=== PATIENT | female | born 1960 | race Caucasian/White ===

== ENCOUNTER → 2017-09-18 09:04 | Outpatient (CLI) | payer OTHER, SELFPAY ==
[2017-09-18] VITALS (8 sets, daily range): BP systolic 135–150; BP diastolic 48–104; PULSE 54–83; RESP 16–18; TEMP 35.9–37.1; O2SAT 94–100
[2017-09-18 09:52] LABS: Immature Platelet Fraction 4.2 % (1.0-7.9); Reticulocyte Count 4.89 % (0.5-1.5)
[2017-09-18 10:16] LABS: Ferritin 203 ng/mL (8-252); Iron 33 ug/dL (50-170); Iron Binding Capacity,Total 283 ug/dL (250-450); PERCENT IRON SATURATION 11.7 % (15.0-55.0)
== END ==
PROVIDERS: Internal Medicine Hematology & Oncology; Family Provider Internal Medicine; PCP Internal Medicine; Visit Provider Internal Medicine
DX: D50.0 Iron deficiency anemia secondary to blood loss (chronic) (principal); K90.9 Intestinal malabsorption, unspecified
CPT/HCPCS: 36415; 36430; 82728; 83540; 83550; 85045; 86850; 86900; 86920; 86922; J7040; P9016; A4216

== ENCOUNTER 2017-11-13 14:01 | Observation (INO) | payer MEDICAID, SELFPAY ==
[2017-11-13] VITALS (9 sets, daily range): BP systolic 124–157; BP diastolic 56–104; PULSE 70–84; RESP 15–18; TEMP 35.8–37.1; O2SAT 95–99; BMI 38.0; BMI 38.1; BMI 37.0
--- NOTE | 2017-11-13 16:02 | ED.VISSUMM ---
- ER Visit Summary Date of Service: 11/13/17 Chief Complaint: Bright red blood per rectum and black stool. History of Present Illness: The patient is a 57 F history of prior GI bleeds. She states she has had both upper and lower endoscopy and the camera procedure none of which is never found a source. She has a history of chronic iron deficiency anemia. And is also on Plavix due to carotid stenosis. Patient states today around 1231 she noticed bright red blood per rectum and black stool. Also mild epigastric abdominal discomfort. She has nausea but no vomiting. No hematemesis. She has been transfused 2 units within the last 2-3 months. Physical Examination: Well appearing middle-aged female. Vital signs are stable afebrile. She does not look septic or toxic. Currently no acute distress. HEENT exam is unremarkable. Neck nontender. Lungs clear to auscultation bilaterally. Heart regular rhythm no murmur. Abdomen is soft, nontender, nondistended normal bowel sounds no peritoneal signs. She complains of epigastric tenderness is not really reproducibly tender. Both the right upper right lower quadrant unremarkable. There is no pulsatile mass. Moving all 4 extremities. Back exam nontender. Rectal exam with a nurse present in the room no external hemorrhoids. Loose brown stool. No bright red blood. No internal masses. No melena currently. Neurologically she is awake and alert without any focal motor deficits. Skin unremarkable. No bruising or petechiae or purpura. Test Results: CBC shows a hemoglobin 7.5. Which is lower than her baseline. Her normal hemoglobins running between 9 and 13. Electrolytes unremarkable normal anion gap and BUN and creatinine. Emergency Department Course and Treatment: Patient will undergo screening labs and type and screen. Treatment Plan: Patient will be typed and crossed for 2 units. I will order a transfusion of 1 unit she may or may not need to second. I spoke to the hospitalist who will admit the patient for evaluation, workup and transfusion. Disposition: Admission Impression: Acute GI bleed of uncertain etiology Acute on chronic anemia Blood transfusion History of anticoagulation with Plavix This note was generated with [employer] dictation software. It may contain incorrect words, spelling, and punctuation that were not noted in review of the chart prior to signing ED Disposition - Plan for ED Patient: Chief Complaint: Abd Pain Referrals: Selene Painter MD [Primary Care Provider] -
[2017-11-13 16:06] LABS: Anion Gap 8 (5-15); BUN 8 mg/dL (7-18); BUN/Creat Ratio 10.2 RATIO (10-20); Calcium,Total 8.3 mg/dL (8.5-10.1); Chloride 106 mmol/L (98-107); Creatinine, Serum 0.79 mg/dL (0.55-1.02); EST Glomerular Filtration Rate 80 mL/min (>60); Est Glom Filt Rate - Afr Amer 97 mL/min (>60); Estimated Creatinine Clearance 64.21 ml/min; Glucose 79 mg/dL (74-106); Potassium 4.1 mmol/L (3.5-5.1); Sodium Level 139 mmol/L (136-145)
[2017-11-13 16:17] LABS: Absolute Lymphocyte Count 1.12 X10^3/ul (0.83-4.51); Absolute Neutrophil Count 4.6 X10^3/uL (2.0-7.7); Basophil# 0.07 X10^3/uL; Basophil% 1.1 % (0-1); Eosinophil# 0.18 X10^3/uL; Eosinophils% 2.8 % (0-5); Hematocrit 25.6 % (37-47); Hemoglobin 7.5 g/dl (12.0-15.0); Lymphocyte # 1.12 X10^3/ul (4.0); Lymphocyte % 17.3 % (19-41); Mean Corp Hgb Conc 29.3 g/gl (32-36); Mean Corpuscular Hgb 25.5 pg (27.0-32.0); Mean Corpuscular Volume 87.1 fL (81-99); Mean Platelet Vol. 10.6 fl (6.2-12.0); Monocyte# 0.51 X10^3/uL; Monocyte% 7.9 % (0-10); Neutrophil % 70.7 % (47-70); Platelet Count 408 K/mm3 (150-450); Pregnancy, Serum, hCG Quali. NEGATIVE Negative (0-9 Nonpreg); RBC Distribution Width CV 16.1 % (11.6-14.6); RBC Distribution Width SD 49.3 fl (35.1-43.9); Red Blood Count 2.94 M/mm3 (4.2-5.4); White Blood Count 6.5 K/mm3 (4.4-11.0)
[2017-11-13 16:18] LABS: POSITIVE COUNT NO; POSITIVE DIFFERENTIAL NO; POSITIVE MORPHOLOGY NO
--- NOTE | 2017-11-13 17:22 | NURSING ---
MED SURG [facility]
--- NOTE | 2017-11-13 20:37 | PCM.HP.STD ---
Problem List (1) Anemia Status: Chronic (2) Rheumatoid arthritis Status: Chronic (3) Fibromyalgia Status: Chronic (4) Carotid arterial disease Status: Chronic History of Present Illness Date of Admission: 11/13/17 Chief Complaint: Bright red blood per rectum The patient is a 57 year old F past medical history of left carotid stenosis, fibromyalgia rheumatoid arthritis and anemia who presented to the emergency room due to bright red blood per rectum. The patient does take Plavix for her carotid stenosis. Patient reported that she had EGD and colonoscopy about 3 months ago and it was unrevealing. Globin was 7.5 and she was ordered to receive 2 units of packed RBCs. Denies any chest pain, shortness of breath dizziness or rapid heartbeat or palpitations. Past Medical History Past Medical History (Chronic Problems): Chronic Problems (Last Reviewed 09/10/17 @ 13:01 by Stephanie Zuñiga) Anemia (Chronic) Rheumatoid arthritis (Chronic) Fibromyalgia (Chronic) Carotid arterial disease (Chronic) Allergies doxycycline calcium [From Vibramycin] Allergy (Verified 11/13/17 16:07) Anaphylaxis doxycycline hyclate [From Vibramycin] Allergy (Verified 11/13/17 16:07) Anaphylaxis doxycycline monohydrate [From Vibramycin] Allergy (Verified 11/13/17 16:07) Anaphylaxis NSAIDS (Non-Steroidal Anti-Inflamma Allergy (Verified 11/13/17 16:07) Anaphylaxis hydrocodone bitartrate [From Vicodin] Adverse Reaction (Verified 11/13/17 16:27) STOMACH UPSET hydromorphone HCl [From Dilaudid] Adverse Reaction (Verified 11/13/17 16:27) Vomiting morphine Adverse Reaction (Verified 11/13/17 16:27) Vomiting Home Medications: Ambulatory Orders Medication Instructions Recorded Albuterol Inhaler [Ventolin Hfa] 2 puff INHALATION Q4H PRN PRN 03/13/15 Clopidogrel Bisulfate [Plavix] 75 mg PO DAILY 03/13/15 Gabapentin [Neurontin] 600 mg PO TID 03/13/15 Simvastatin [Zocor] 20 mg PO QHS 03/13/15 Fluoxetine [Prozac] 60 mg PO QHS 16 acetaminophen 325 mg tablet 500 mg PO Q6H PRN 07/12/17 bupropion HCl SR 100 mg tablet,12 150 mg PO BID 07/12/17 hr sustained-release mometasone-formoterol HFA 100 2 puff INHALATION BID 07/12/17 mcg-5 mcg/actuation aerosol inhaler prednisone 5 mg tablet 15 mg PO DAILY 07/12/17 Carboxymethylcellulose Sodium 1 applicatio OP QHS 11/13/17 [Refresh Liquigel] Ergocalciferol [Vitamin D] 50,000 unit PO MORALEZ 11/13/17 Omeprazole 40 mg PO DAILY 11/13/17 Ondansetron [Zofran Odt] 4 mg PO Q6H PRN PRN 11/13/17 Peg 400/Hypromellose/Glycerin 1 drop OP 4X/DAY 11/13/17 [Artificial Tears Drops] Ranitidine [Zantac] 150 mg PO BID 11/13/17 Ubidecarenone [Coenzyme Q-10] 30 mg PO BID 11/13/17 buPROPion XL [Wellbutrin Xl] 150 mg PO QHS 11/13/17 Surgical History: - - left shoulder, 2 c/s, colonoscopy and egd 5 years ago at [facility],left tkr Smoking Status: Former smoker - *Family History Maternal History Items: - - mother with most of her large intestine removed - not crohns or ulceritive colitis but a different typ of IBD Paternal History Items: - - father with mi Review of Systems Comment: All Systems were reviewed with pertinent positives mentioned in the HPI above. VTE Information - Inpt Only VTE Present on Admission: No VTE Mechan Device Prophylaxis: SCD's VTE Pharm Prophylaxis ordered?: No - Physical Exam General: Alert, Oriented x3 HEENT: Atraumatic Oral: Moist Mucosa Neck: Supple, No JVD Lungs: Clear to auscultation Cardiovascular: Regular rate, Normal S1, Normal S2 Abdomen: Bowel Sounds Present, Soft, Non Tender Vital Signs Temp Pulse Resp BP Pulse Ox 98.7 F 79 18 129/67 H 96 11/13/17 19:58 11/13/17 20:15 11/13/17 19:58 11/13/17 19:58 11/13/17 19:58 Oxygen Delivery Method Room Air Weight: 96.388 kg Body Mass Index (BMI) 37.0 Intake and Output for Last 24 Hours 11/11/17 11/12/17 11/13/17 23:59 23:59 23:59 Intake Total 0 / 0 Balance 0 / 0 Assessment/Plan 1. Acute lower gastrointestinal bleed; likely had EGD and colonoscopy and that did not reveal any source of bleeding. Hold off on her Plavix for now. I do not believe she needs repeat EGD or colonoscopy at this time. 2. Acute blood loss anemia; will transfuse with packed RBCs and repeat H&H. 3. Left carotid stenosis for which she takes Plavix; we are holding Plavix for now. 4. Depression/fibromyalgia; stable. 5. DVT Prophylaxis with SCDs. Code Visit OBSV E&M: 84451 Initial observation care L3
[2017-11-13 22:32] LABS: Hematocrit 26.7 % (37-47); Hemoglobin 8.2 g/dl (12.0-15.0)
[2017-11-13] MEDS: FLUoxetine 20 MG Capsule 60 MG PO (23:08)
[2017-11-13] MEDS: Atorvastatin Calcium 10 MG Tablet PO (23:08)
[2017-11-13] MEDS: buPROPion (XL) 150 MG TABLET.XL PO (23:09)
[2017-11-13] MEDS: Gabapentin 600 MG Tablet PO (23:10)
[2017-11-14] VITALS (15 sets, daily range): BP systolic 129–155; BP diastolic 44–70; PULSE 73–96; RESP 16–18; TEMP 36.6–37.1; O2SAT 96–98
[2017-11-14 06:50] LABS: Hemoglobin 8.2 g/dl (12.0-15.0); Red Blood Count 3.14 M/mm3 (4.2-5.4); White Blood Count 5.5 K/mm3 (4.4-11.0)
[2017-11-14 06:51] LABS: Absolute Lymphocyte Count 0.95 X10^3/ul (0.83-4.51); Absolute Neutrophil Count 3.8 X10^3/uL (2.0-7.7); Basophil# 0.05 X10^3/uL; Basophil% 0.9 % (0-1); Eosinophils% 3.6 % (0-5); Hematocrit 26.8 % (37-47); Lymphocyte # 0.95 X10^3/ul (4.0); Lymphocyte % 17.3 % (19-41); Mean Corp Hgb Conc 30.6 g/gl (32-36); Mean Corpuscular Hgb 26.1 pg (27.0-32.0); Mean Corpuscular Volume 85.4 fL (81-99); Mean Platelet Vol. 9.9 fl (6.2-12.0); Monocyte# 0.52 X10^3/uL; Monocyte% 9.5 % (0-10); Neutrophil # 3.76 X10^3/uL (2.7-7.7); Neutrophil % 68.7 % (47-70); Platelet Count 340 K/mm3 (150-450); RBC Distribution Width CV 15.8 % (11.6-14.6); RBC Distribution Width SD 49.2 fl (35.1-43.9)
[2017-11-14 06:54] LABS: POSITIVE COUNT NO; POSITIVE DIFFERENTIAL NO; POSITIVE MORPHOLOGY NO
[2017-11-14] MEDS: Albuterol 2.5 MG/3 ML VIAL.NEB. INHALATION ×3 (07:01→19:14)
[2017-11-14] MEDS: Gabapentin 600 MG Tablet PO ×3 (07:36→21:43)
[2017-11-14 09:48] LABS: International Normalized Ratio 1.1; Prothrombin Time (Protime)PT. 14.5 SECONDS (11.7-14.9)
[2017-11-14 09:49] LABS: Partial Thromboplast Time 35.4 Seconds (24.1-36.2)
[2017-11-14] MEDS: 0.9% NaCl Peripheral Flush Adult/Peds IV ×2 (09:52→21:44)
[2017-11-14] MEDS: predniSONE 5 MG Tablet 15 MG PO (09:52)
--- NOTE | 2017-11-14 10:08 | PN_ITS ---
Subjective: Chief complaint: Follow-up after admission for lower GI bleed, acute blood loss anemia. Patient seen and examined. No acute events overnight. She is stated that she has no more rectal bleeding. She has no more dizziness or lightheadedness. Denied abdominal pain, nausea vomiting. Denied hematemesis, hemoptysis or hematuria. Denied chest pain or shortness of breath. Vital signs are stable. - Physical Exam General: Alert, Oriented x3, Cooperative, No apparent distress HEENT: Atraumatic, PERRLA, EOMI Oral: Moist Mucosa, No Gingival or Mucosal Lesions/ Ulcerations Neck: Supple, No JVD, Negative Carotid Bruits, Trachea Midline, Thyroid Normal Size and Texture Lungs: Clear to auscultation, Normal air movement, No rhonchi, No wheeze, No rales Cardiovascular: Regular rate, Regular Rhythm, Normal S1, Normal S2, No murmurs Abdomen: Bowel Sounds Present, Soft, Non Tender, Non-Distended, No Hepato- splenomegaly Extremities: No clubbing, No cyanosis, No edema Skin: No rashes, No breakdown Lymphatic: No Cervical, Supraclavicular, or Inguinal Adenopathy Neurological: Cranial nerves II-XII grossly intact, Motor Exam 5/5 strength throughout Psych/Mental Status: Normal Affect, Appropriate, Alert and oriented to time, place, person, mood and affect Vital Signs Temp Pulse Resp BP Pulse Ox 98.3 F 77 16 145/44 H 98 11/14/17 09:47 11/14/17 09:47 11/14/17 09:47 11/14/17 09:47 11/14/17 09:47 Oxygen Delivery Method Room Air Weight: 212 lb 8 oz Body Mass Index (BMI) 37.0 Intake and Output for Last 24 Hours 11/12/17 11/13/17 11/14/17 23:59 23:59 23:59 Intake Total 633 / 633 300 / 300 Balance 633 / 633 300 / 300 Laboratory Tests Past 24 Hrs 11/13/17 11/14/17 11/14/17 22:19 06:08 09:25 WBC 5.5 RBC 3.14 L Hgb 8.2 L 8.2 L Hct 26.7 L 26.8 L MCV 85.4 MCH 26.1 L MCHC 30.6 L RDW 15.8 H RDW Differential 49.2 H Plt Count 340 MPV 9.9 Immature Gran % (Auto) 0.000 Neut % (Auto) 68.7 Lymph % (Auto) 17.3 L [place] % (Auto) 9.5 Eos % (Auto) 3.6 Baso % (Auto) 0.9 Absolute Neuts (auto) 3.8 Absolute Lymphs (auto) 0.95 Total Counted Not Reportable PT 14.5 INR 1.1 APTT 35.4 Medical Necessity - Tobacco Use Smoking Status: Former smoker Assessment/Plan This is a 58 years old female patient admitted because of rectal bleeding, found to have acute symptomatic blood loss anemia requiring blood transfusion. #1 lower GI bleed: This is likely diverticular bleeding. According to the patient, she had upper endoscopy and colonoscopy 3 months ago that revealed no evidence of source of infection. Also, she had capsule endoscopy and also was unremarkable., She has no more rectal bleeding. Her vital signs are stable. Her hemoglobin is 8.2 g/dL. Plan as below. #2 acute on chronic symptomatic blood loss anemia: Secondary to above. Admission hemoglobin was 7.5 g/dL. She received 1 unit of packed RBCs, today's hemoglobin is 8.2 g/dL. She has normal symptoms, no dizziness or lightheadedness. Her platelet count is normal. Pro time, INR and PTT are normal. Patient has a history of chronic iron deficiency anemia and she has been receiving IV iron therapy as outpatient. Plan: Transfuse another unit of packed RBCs, IV iron sucrose 100 mg ?1, repeat H&H tomorrow morning, anticipate discharge home tomorrow. #3 rheumatoid arthritis: Resume prednisone, start OxyIR as needed for pain. #4 COPD: Clinically stable, maintaining her pulse ox on room air. Continue albuterol every 6 hours and as needed. #5 carotid artery disease: Patient has been on Plavix. According to her, she has 80% stenosis on the left carotid artery. Plan to resume Plavix upon discharge. #6 hyperlipidemia: Continue statins. #7 depression: Continue Wellbutrin and Prozac. #8 DVT prophylaxis: SCDs. This note was generated with [employer] software. It may contain incorrect words, spelling, and punctuation that were not noted in checking the note before signing. Code Visit Inpatient E&M: 31809 Subs Hosp L2
[2017-11-14] MEDS: oxyCODONE 5 MG Tablet PO ×2 (11:34→19:50)
--- NOTE | 2017-11-14 13:05 | CASEMGMT ---
Social Work Assessment SW met with pt to complete initial assessment and to discuss discharge planning. SW introduced self and role at [facility]. Pt is alert and orientated x4. Pt states that she lives with a friend in a 2 story home. Pt states that she primarily stays on the first floor. Pt states that before coming into the hospital she was previously independent but states that her friend and her daughter help out when needed. Pt states that her PCP is Selene Painter and her preferred pharmacy is [facility] in [place]. Pt denied DME. Pt states that her plan is to return home at discharge. Pt denied any additional needs or concerns. Substance Abuse Hx: Pt denied. Pt states she used to smoke cigarettes but doesn't anymore. Mental Health Hx: Pt states that she struggles with anxiety and depression. Pt denied receiving counseling services and denied the need for current counseling services. Pt states that she currently takes Wellbutrin and Prozac and these medications are prescribed through her PCP. Plan: Return home with support from friends. Kamilah Fraga PUBLIC WORKS DIRECTOR, FOOD SERVICE COUNTER CLERK
[2017-11-14] MEDS: Acetaminophen 500 MG Tablet PO (17:04)
[2017-11-14] MEDS: Atorvastatin Calcium 10 MG Tablet PO (21:43)
[2017-11-14] MEDS: buPROPion (XL) 150 MG TABLET.XL PO (21:43)
[2017-11-14] MEDS: FLUoxetine 20 MG Capsule 60 MG PO (21:43)
[2017-11-14 21:58] LABS: Hematocrit 28.1 % (37-47); Hemoglobin 8.7 g/dl (12.0-15.0)
[2017-11-15 00:04] VITALS: PULSE 80
[2017-11-15 01:54] VITALS: BP 155/71; PULSE 81; RESP 16; TEMP 36.9; O2SAT 97
[2017-11-15 04:02] VITALS: PULSE 73
[2017-11-15] MEDS: Gabapentin 600 MG Tablet PO (06:07)
[2017-11-15 07:28] VITALS: PULSE 74; RESP 16
[2017-11-15] MEDS: Albuterol 2.5 MG/3 ML VIAL.NEB. INHALATION (07:28)
[2017-11-15 07:46] VITALS: PULSE 79
--- NOTE | 2017-11-15 07:51 | PCM.DC ---
You will use the following diet at home:: Regular Your food should be the consistency of: Regular Discharge Activity: Return to Normal Activity Weight Bearing Status: Weight bearing as tolerated Call your doctor if you observe: Fever of 101 or Higher, Shortness of breath, Dizziness, Fainting spells, Chest pain, Increased palpitations (irregular heartbeat), Uncontrolled pain Allergies/Adverse Reactions: Allergies doxycycline calcium [From Vibramycin] Allergy (Verified 11/13/17 16:07) Anaphylaxis doxycycline hyclate [From Vibramycin] Allergy (Verified 11/13/17 16:07) Anaphylaxis doxycycline monohydrate [From Vibramycin] Allergy (Verified 11/13/17 16:07) Anaphylaxis NSAIDS (Non-Steroidal Anti-Inflamma Allergy (Verified 11/13/17 16:07) Anaphylaxis hydrocodone bitartrate [From Vicodin] Adverse Reaction (Verified 11/13/17 16:27) STOMACH UPSET hydromorphone HCl [From Dilaudid] Adverse Reaction (Verified 11/13/17 16:27) Vomiting morphine Adverse Reaction (Verified 11/13/17 16:27) Vomiting Medications to take at Discharge Albuterol Inhaler [Ventolin Hfa] 2 puff INHALATION Q4H PRN PRN 03/13/15 Clopidogrel Bisulfate [Plavix] 75 mg PO DAILY 03/13/15 Gabapentin [Neurontin] 600 mg PO TID 03/13/15 Simvastatin [Zocor] 20 mg PO QHS 03/13/15 Fluoxetine [Prozac] 60 mg PO QHS 16 acetaminophen 325 mg tablet 500 mg PO Q6H PRN 07/12/17 bupropion HCl SR 100 mg tablet,12 hr sustained-release 150 mg PO BID 07/12/17 mometasone-formoterol HFA 100 mcg-5 mcg/actuation aerosol inhaler 2 puff INHALATION BID 07/12/17 prednisone 5 mg tablet 15 mg PO DAILY 07/12/17 Carboxymethylcellulose Sodium [Refresh Liquigel] 1 applicatio OP QHS 11/13/17 Ergocalciferol [Vitamin D] 50,000 unit PO MORALEZ 11/13/17 Omeprazole 40 mg PO DAILY 11/13/17 Ondansetron [Zofran Odt] 4 mg PO Q6H PRN PRN 11/13/17 Peg 400/Hypromellose/Glycerin [Artificial Tears Drops] 1 drop OP 4X/DAY 11/13/17 Ranitidine [Zantac] 150 mg PO BID 11/13/17 Ubidecarenone [Coenzyme Q-10] 30 mg PO BID 11/13/17 buPROPion XL [Wellbutrin Xl] 150 mg PO QHS 11/13/17 Prednisone 15 mg PO 11/14/17 Ferrous Sulfate 325 mg PO BIDCM #90 tab 11/15/17 The following prescriptions were given: Ferrous Sulfate 325 mg PO BIDCM #90 tab Primary Care Physician: Selene Painter MD [Primary Care Provider] - Please follow up with your Primary Care Physician in: 1 week.
[2017-11-15 08:00] VITALS: BP 150/75; PULSE 81; RESP 16; TEMP 37; O2SAT 96
[2017-11-15] MEDS: predniSONE 5 MG Tablet 15 MG PO (08:13)
--- NOTE | 2017-11-15 12:33 | PCM.DC.SUM ---
Discharge Date and Diagnosis Date of Admission: 11/13/17 - Primary Discharge Diagnosis #1 lower GI bleed, probably due to diverticular bleeding. #2 acute on chronic symptomatic blood loss anemia. - Secondary Discharge Diagnosis Chronic Problems (Last Reviewed 09/10/17 @ 13:01 by Stephanie Zuñiga) Anemia (Chronic) Rheumatoid arthritis (Chronic) Fibromyalgia (Chronic) Carotid arterial disease (Chronic) Hospital Course and Treatment Operations: None Procedures: Blood transfusion Summary of Care Provided: Patient seen and examined on the day of discharge and appeared to be stable to be discharged home. She denies any more symptoms. Denies any more dizziness or lightheadedness. She has no more rectal bleeding. Denied abdominal pain, nausea vomiting. Vital signs are stable. She has been ambulating without any symptoms. - Physical Exam General: Alert, Oriented x3, Cooperative, No apparent distress. HEENT: Atraumatic, PERRLA, EOMI. Neck: Supple, No JVD, Negative Carotid Bruits, Trachea Midline, Thyroid Normal. Lungs: Clear to auscultation, Normal air movement, No rhonchi, No wheeze, No rales. Cardiovascular: Regular rate, Regular Rhythm, Normal S1, Normal S2, PMI Normal. Abdomen: Bowel Sounds Present, Soft, Non Tender, Non-Distended, No Hepato-splenomegaly. Extremities: No clubbing, No cyanosis, No edema Skin: No rashes, No breakdown Neurological: Neuro grossly intact Vital Signs are stable. Hospital course: The patient is a 57 year old F admitted because of rectal bleeding and she was found to have acute on chronic symptomatic blood loss anemia requiring blood transfusion. Patient had a history of this lower GI bleed in the past which is attributed to diverticular bleeding. She had upper endoscopy and colonoscopy 3 months ago that revealed no evidence of active bleeding. Also, she mentioned that she had capsule endoscopy and also that was unremarkable. She was found to have hemoglobin of 7.5 g/dL and she was symptomatic with dizziness and lightheadedness. She received total of 2 units of packed RBCs and her hemoglobin went up to 8.7 g/dL upon discharge. Patient symptoms improved and she had no more dizziness or lightheadedness. Her vital signs were stable. She has a history of left internal carotid artery stenosis of 80% and she has been on Plavix. Her pro time and INR as well as PTT were normal. Her platelet count was normal. Plavix was held during the admission but resumed upon discharge. Because of her risk of stroke, I started her back on Plavix upon discharge. Patient discharged home in a stable medical condition, discharged on iron supplement, continued on her home medication without any changes including Plavix, order given to repeat CBC in 1 week, follow-up with PCP in 1 week. Discharge Activity: Return to Normal Activity Weight Bearing Status: Weight bearing as tolerated Call your doctor if you observe: Fever of 101 or Higher, Shortness of breath, Dizziness, Fainting spells, Chest pain, Increased palpitations (irregular heartbeat), Uncontrolled pain Home Medications: Medications to take at Discharge Albuterol Inhaler [Ventolin Hfa] 2 puff INHALATION Q4H PRN PRN 03/13/15 Clopidogrel Bisulfate [Plavix] 75 mg PO DAILY 03/13/15 Gabapentin [Neurontin] 600 mg PO TID 03/13/15 Simvastatin [Zocor] 20 mg PO QHS 03/13/15 Fluoxetine [Prozac] 60 mg PO QHS 12/13/15 acetaminophen 325 mg tablet 500 mg PO Q6H PRN 07/12/17 bupropion HCl SR 100 mg tablet,12 hr sustained-release 150 mg PO BID 07/12/17 mometasone-formoterol HFA 100 mcg-5 mcg/actuation aerosol inhaler 2 puff INHALATION BID 07/12/17 prednisone 5 mg tablet 15 mg PO DAILY 07/12/17 Carboxymethylcellulose Sodium [Refresh Liquigel] 1 applicatio OP QHS 11/13/17 Ergocalciferol [Vitamin D] 50,000 unit PO MORALEZ 11/13/17 Omeprazole 40 mg PO DAILY 11/13/17 Ondansetron [Zofran Odt] 4 mg PO Q6H PRN PRN 11/13/17 Peg 400/Hypromellose/Glycerin [Artificial Tears Drops] 1 drop OP 4X/DAY 11/13/17 Ranitidine [Zantac] 150 mg PO BID 11/13/17 Ubidecarenone [Coenzyme Q-10] 30 mg PO BID 11/13/17 buPROPion XL [Wellbutrin Xl] 150 mg PO QHS 11/13/17 Prednisone 15 mg PO 11/14/17 Ferrous Sulfate 325 mg PO BIDCM #90 tab 11/15/17 Following Prescrptions Were Given to Patient: Ferrous Sulfate 325 mg PO BIDCM #90 tab Primary Care Physician: Selene Painter MD [Primary Care Provider] - Please follow up with your Primary Care Physician in: 1 week. Disposition: Home Minutes spent on discharge:: 25 Patient Condition:: Stable Medical Necessity - Tobacco Use Smoking Status: Former smoker Meaningful Use Info Meaningful Use Diagnoses (Choose all that apply): None applicable Code Visit Inpatient E&M: 17269 Disch Hosp
== END 2017-11-15 08:30 | disposition home or self-care (01) ==
LOC: ED 16:04 → MS3 22:39
PROVIDERS: Admitting Provider Internal Medicine; Emergency Provider Emergency Medicine; Family Provider Internal Medicine; PCP Internal Medicine; Visit Provider Hospitalist
DX: K92.2 Gastrointestinal hemorrhage, unspecified (principal); D62 Acute posthemorrhagic anemia; D50.0 Iron deficiency anemia secondary to blood loss (chronic); M79.7 Fibromyalgia; M06.9 Rheumatoid arthritis, unspecified; I65.22 Occlusion and stenosis of left carotid artery; Z79.899 Other long term (current) drug therapy; Z79.02 Long term (current) use of antithrombotics/antiplatelets; Z79.52 Long term (current) use of systemic steroids; J44.9 Chronic obstructive pulmonary disease, unspecified; E78.5 Hyperlipidemia, unspecified; F32.9 Major depressive disorder, single episode, unspecified; Z87.891 Personal history of nicotine dependence; K21.9 Gastro-esophageal reflux disease without esophagitis
CPT/HCPCS: 36415; 36430; 80048; 84703; 85014; 85018; 85025; 85610; 85730; 86850; 86900; 86920; 90471; 94640; 96365; 96366; 96367; 99218; 99285; J1756; J7040; J7050; P9016; A4216; G0378

== ENCOUNTER 2018-03-22 12:18 | Emergency (ER) | payer MEDICARE, MEDICAID, SELFPAY ==
[2018-03-22 12:19] VITALS: BP 147/78; PULSE 80; RESP 14; TEMP 36.7; O2SAT 99; BMI 37.2
--- NOTE | 2018-03-22 12:58 | ED.VISSUMM ---
- ER Visit Summary Date of Service: 03/22/18 Chief Complaint: Fall History of Present Illness: The patient is a 57 F who suffered a mechanical fall yesterday on the concrete. Patient states that she lost her balance and fell. She landed on her left side with her left arm tucked up against her ribs. She is complaining of pain to the left ribs into the left knee. She denies striking her head or loss of consciousness. She did take Tylenol earlier this morning. Physical Examination: Vital signs are unremarkable. Patient sitting upright in bed. She is in no acute distress. Head neck examination reveals no external sign of trauma. She has no C-spine tenderness. Heart is regular rate and rhythm. Lung sounds are clear. She does have reproducible left chest wall tenderness. There is no crepitus. Abdomen is soft nontender. Back examination reveals no midline tenderness of the thoracic or lumbar region. Lower extremity examination was mild tenderness of the anterior left knee. She has full range of motion. Strong distal pulses are noted. Neuro exam is normal. Test Results: Left rib series with chest x-ray reveals normal ribs. There is a large hiatal hernia. Left knee x-rays reveal prior prosthesis. No evidence of fracture. Emergency Department Course and Treatment: Patient was given oxycodone here and on repeat evaluation does feel improved. Test results were discussed with patient and family at bedside. She will be given a short course of oxycodone for home. Treatment Plan: [] Disposition: Discharge Impression: 1. Mechanical fall 2. Left rib contusion 3. Left knee contusion This note was generated with [employer] dictation software. It may contain incorrect words, spelling, and punctuation that were not noted in review of the chart prior to signing ED Disposition - Plan for ED Patient: Chief Complaint: Fall Referrals: Selene Painter MD [Primary Care Provider] -
[2018-03-22] MEDS: oxyCODONE 5 MG Tablet 10 MG PO (13:09)
--- NOTE | 2018-03-22 14:48 | ED.DEP ---
ED Disposition - Plan for ED Patient: Disposition: Home or Assisted Living Chief Complaint: Fall Instructions: ED Mechanical Fall, ED Contusion Rib, ED Contusion Lower Ext Prescriptions: Oxycodone HCl/Acetaminophen [Percocet 5/325] 1 tablet PO Q6H PRN PRN 3 Days #12 tablet PRN Reason: Pain Referrals: Selene Painter MD [Primary Care Provider] - 1 Week
[2018-03-22 14:58] VITALS: BP 126/68; PULSE 78; RESP 16; O2SAT 94
== END 2018-03-22 14:59 | disposition home or self-care (01) ==
PROVIDERS: Emergency Provider Emergency Medicine; Family Provider Internal Medicine; PCP Internal Medicine
DX: S20.212A Contusion of left front wall of thorax, initial encounter (principal); S80.02XA Contusion of left knee, initial encounter; W19.XXXA Unspecified fall, initial encounter; Y93.9 Activity, unspecified; Y92.9 Unspecified place or not applicable; Y99.9 Unspecified external cause status; K44.9 Diaphragmatic hernia without obstruction or gangrene; J44.9 Chronic obstructive pulmonary disease, unspecified; M06.9 Rheumatoid arthritis, unspecified; M79.7 Fibromyalgia; D64.9 Anemia, unspecified; Z79.02 Long term (current) use of antithrombotics/antiplatelets; Z79.899 Other long term (current) drug therapy; Z87.891 Personal history of nicotine dependence; Z96.652 Presence of left artificial knee joint
CPT/HCPCS: 71101; 73564; 99283

== ENCOUNTER → 2018-05-03 15:03 | Outpatient (CLI) | payer MEDICARE, MEDICAID, SELFPAY | PROVIDERS: Family Provider Internal Medicine; PCP Internal Medicine; Referring Provider Physician Assistant; Visit Provider Physician Assistant | DX: J02.9 Acute pharyngitis, unspecified (principal) | CPT/HCPCS: 87081 ==

== ENCOUNTER → 2018-05-27 11:48 | Outpatient (CLI) | payer MEDICARE, MEDICAID, SELFPAY | PROVIDERS: Family Provider Internal Medicine; PCP Internal Medicine; Referring Provider Physician Assistant Surgical; Visit Provider Physician Assistant Surgical | DX: J02.9 Acute pharyngitis, unspecified (principal) | CPT/HCPCS: 87081 ==

== ENCOUNTER 2019-10-08 12:35 | Emergency (ER) | payer MEDICARE, SELFPAY ==
[2019-04-09 13:50] VITALS: BMI 37.2
[2019-10-08 12:36] VITALS: BP 152/131; PULSE 79; RESP 18; TEMP 36.4; O2SAT 99; BMI 37.5
--- NOTE | 2019-10-08 12:45 | US_ITS ---
STUDY: ABDOMINAL ULTRASOUND - RIGHT UPPER QUADRANT REASON FOR VISIT: Female, 59 years old RUQ PAIN TECHNIQUE: Ultrasound evaluation of the right upper quadrant was performed with real-time and static mendez-scale imaging. TECHNICAL QUALITY: Limited. Examination limited due to obesity. COMPARISON: None. FINDINGS: Liver: The liver measures 12.9 cm. There is normal echogenicity of the liver. The bile ducts are within normal limits. There is hepatic color flow. The direction of portal flow is hepatopetal. There is no demonstrated mass lesion. Gallbladder: Normal distended gallbladder. The gallbladder wall measures 2.3 mm. There is a negative sonographic Mae''s sign. There is no pericholecystic fluid. There are no gallstones. Common Bile Duct (C.B.D.): The common bile duct measures 3.8 mm. Pancreas: There is nonvisualization of the pancreas due to overlying bowel gas. Right Kidney: Normal size of the right kidney. The right kidney measures 11.2 cm x 4.6 cm x 4.4 cm. Normal renal cortex. The right cortex measures 1.8 cm. There is no demonstrated renal mass or cyst. There is no right hydronephrosis. US/Gallbladder IMPRESSION: Normal right upper quadrant ultrasound examination. Electronically Signed: Juan Antonio Becerra, at 14:32 EDT , Service support ,
--- NOTE | 2019-10-08 12:47 | ED.VIS.GEN ---
History of Present Illness Chief Complaint: Abd Pain Informant: Patient Onset: Days Context: Gradual Onset Timing: Continuous Current Severity: Moderate Maximum Severity: Moderate Narrative: The patient is a 59-year-old female who presents to the emergency department with right upper quadrant abdominal pain, nausea, and vomiting. The patient states that she has a history of hiatal hernia repair. She states that she is to vomit much more significantly, but now she is just been having dry heaves. Over the past few days, she is had more pain in the central epigastric area into her right upper quadrant. She denies fever but does admit to some chills. She is otherwise been in her normal state of health. She has had no other abdominal surgery aside from . She is unsure if any foods make it worse. Prior similar symptoms: No Recent Illness/Hospitalization: No Past Medical History - Allergies and Home Meds Allergies/Adverse Reactions: Allergies doxycycline calcium [From Vibramycin] Allergy (Verified 10/08/19 12:35) Anaphylaxis doxycycline hyclate [From Vibramycin] Allergy (Verified 10/08/19 12:35) Anaphylaxis doxycycline monohydrate [From Vibramycin] Allergy (Verified 10/08/19 12:35) Anaphylaxis NSAIDS (Non-Steroidal Anti-Inflamma Allergy (Verified 10/08/19 12:35) Anaphylaxis duloxetine [From Cymbalta] Adverse Reaction (Verified 10/08/19 12:36) Other HEADACHE AND UPSET STOMACH hydrocodone bitartrate [From Vicodin] Adverse Reaction (Verified 10/08/19 12:35) STOMACH UPSET hydromorphone HCl [From Dilaudid] Adverse Reaction (Verified 10/08/19 12:35) Vomiting morphine Adverse Reaction (Verified 10/08/19 12:35) Vomiting Primary Care Physician: Selene Painter MD [Primary Care Provider] - Prior records reviewed: Yes Past Medical History: - - Rheumatoid arthritis, osteoarthritis, hypertension Surgical History: noncontributory, - - left shoulder, 2 c/s, colonoscopy and egd 5 years ago at [facility],left tkr Smoking Status: Former smoker - Family History Maternal Family History: Reports: - - mother with most of her large intestine removed - not crohns or ulceritive colitis but a different typ of IBD Paternal Family History: Reports: - - father with mi Review of Systems General: Denies: Chills, Fever, Sweats Eyes: Denies: Visual changes - bilaterally, Diplopia ENT: Denies: Rhinorrhea, Sore throat Cardiovascular: Denies: Chest pain, Palpitations Respiratory: Denies: Dyspnea, Cough, Dyspnea on exertion Gastrointestinal: Reports: Abdominal pain, Nausea, Vomiting. Denies: Diarrhea, Melena, Hematochezia Genitourinary: Denies: Dysuria, Hematuria, Frequency Musculoskeletal: Denies: Back pain, Extremity Pain Skin: Denies: Rash, Wounds Neurological: Denies: Headache, Weakness, Numbness Physical Exam Vital Signs/Narrative: Vital Signs Temp Pulse Resp BP Pulse Ox 10/08/19 12:36 97.5 F L 79 18 152/131 H 99 Inital Vital Signs reviewed: Yes General: Well nourished, Well developed, No Acute Distress Head: Normocephalic, Atraumatic Eyes: Perrl, EOMI ENT: Moist mucous membranes, No rhinorrhea Neck: Supple, Nontender Cardiovascular: Regular rate, Regular rhythm, No murmurs Respiratory: No distress, CTA bilaterally, Chest nontender Abdomen: Soft, Nondistended, Normal bowel sounds, Tender. Negative for: Guarding, Rebound tenderness Back: Nontender, Normal Inspection Extremities: Nontender, No edema Skin: Normal color, No rash Neurological: Alert, Oriented x3, Cranial nerves II-XII grossly intact, Normal Strength, Normal Sensation Psychological: Normal affect, Normal Mood Diagnostic/Tx/Re-eval Clinical Impression(s) from Imaging Studies Gallbladder Ultrasound 10/08/19 12:45 IMPRESSION: Normal right upper quadrant ultrasound examination. Electronically Signed: Juan Antonio Becerra, at 14:32 EDT , Service support , Abnormal Lab Results 10/08/19 10/08/19 10/08/19 13:15 13:20 13:20 WBC 6.4 RBC 4.94 Hgb 13.9 Hct 44.1 MCV 89.3 MCH 28.1 MCHC 31.5 L RDW Std Deviation 43.9 RDW Coeff of Pepe 13.4 Plt Count 237 MPV 11.2 Immature Gran % (Auto) 0.500 Neut % (Auto) 67.1 Lymph % (Auto) 21.0 Jackson % (Auto) 8.6 Eos % (Auto) 1.7 Baso % (Auto) 1.1 H Absolute Neuts (auto) 4.3 Absolute Lymphs (auto) 1.34 Nucleated RBC % 0 Sodium 139 Potassium 4.3 Chloride 105 Carbon Dioxide 29.0 Anion Gap 5 BUN 12 Creatinine 0.68 Estim Creat Clear Calc 72.78 Est GFR (MDRD) Af Amer 113 Est GFR (MDRD) Non-Af 93 BUN/Creatinine Ratio 17.6 Glucose 88 Calcium 8.8 Total Bilirubin 0.40 Direct Bilirubin 0.11 AST 20 ALT 21 Alkaline Phosphatase 94 Total Protein 7.3 Albumin 3.4 Globulin 3.9 Lipase 78 Urine Color Yellow Urine Clarity Sl. Cloudy Urine pH 7.0 Ur Specific [place] 1.010 Urine Protein Negative Urine Glucose (UA) Normal Urine Ketones Negative Urine Occult Blood Negative Urine Nitrite Negative Urine Bilirubin Negative Urine Urobilinogen 1 H Ur Leukocyte Esterase Negative Urine RBC 0 SEEN Urine WBC 0-5 SEEN Ur Squamous Epith Cells 0-5 SEEN Urine Bacteria 0 SEEN Urine Mucus 0 SEEN - Medical Decision Making The patient presents with right upper quadrant pain, nausea, and vomiting. She is moving her bowels without issue. She is tender in the right upper quadrant without a definitive Mae sign. IV was established. The patient was treated with analgesics and antiemetics with improvement. Screening labs were obtained. She is not anemic. There is no leukocytosis. Electrolytes and liver functions are normal. Lipase is also normal. Patient underwent right upper quadrant ultrasound which shows no definitive pathology. On reevaluation, she is resting comfortably. At this point, I do feel that she is safe for outpatient therapy. She may benefit from further testing including HIDA scan, but at this point I do not suspect a dangerous process. The patient is comfortable with this plan of care and will be discharged. Impression 1. Right upper quadrant pain ED Disposition - Plan for ED Patient: Instructions: BILIARY COLIC with Gallstone (Presumed) Prescriptions: Ondansetron [Zofran Odt] 4 mg PO Q8H PRN PRN #10 tab PRN Reason: Nausea Prescription Printed Referrals: Selene Painter MD [Primary Care Provider] -
[2019-10-08] MEDS: proMETHazine 25 MG/ML Syringe 12.5 MG IV (13:25)
[2019-10-08] MEDS: fentaNYL 100 MCG/2 ML Ampul 50 MCG IV ×2 (13:27→15:11)
[2019-10-08 13:29] LABS: Bacteria 0 SEEN /hpf (None Seen); Mucous, Urine 0 SEEN /hpf (<or=2+); Red Blood Cells-Urine 0 SEEN /hpf (0-5)
[2019-10-08 13:32] LABS: Absolute Lymphocyte Count 1.34 X10^3/uL (0.83-4.51); Absolute Neutrophil Count 4.3 X10^3/uL (2.0-7.7); Basophil# 0.07 X10^3/uL; Basophil% 1.1 % (0-1); Eosinophil# 0.11 X10^3/uL; Eosinophils% 1.7 % (0-5); Hematocrit 44.1 % (37-47); Hemoglobin 13.9 g/dL (12.0-15.0); Lymphocyte # 1.34 X10^3/ul (4.0); Mean Corp Hgb Conc 31.5 g/dL (32-36); Mean Corpuscular Hgb 28.1 pg (27.0-32.0); Mean Corpuscular Volume 89.3 fL (81-99); Mean Platelet Vol. 11.2 fl (6.2-12.0); Monocyte# 0.55 X10^3/uL; Monocyte% 8.6 % (0-10); NRBC Flagged by Analyzer 0 % (0-5); Neutrophil # 4.29 X10^3/uL (2.7-7.7); Neutrophil % 67.1 % (47-70); Platelet Count 237 K/mm3 (150-450); RBC Distribution Width CV 13.4 % (11.6-14.6); RBC Distribution Width SD 43.9 fl (35.1-43.9); Red Blood Count 4.94 M/mm3 (4.2-5.4); White Blood Count 6.4 K/mm3 (4.4-11.0)
[2019-10-08 13:34] LABS: Color, Urine Yellow (Yellow); Glucose, Dipstick Normal (Normal); Ketone-Dipstick Negative (Negative); Leukocyte Esterase-Dipstick Negative /ul (Negative); Nitrite-Dipstick Negative (Negative); Occult Blood-Urine Negative /ul (Negative); Protein-Dipstick Negative (Negative); Urine Bilirubin Dipstick Negative (Negative); Urine Clarity Sl. Cloudy (Clear); Urine Urobilinogen 1 mg/dl (Normal)
[2019-10-08 13:51] LABS: Squamous Epithelial Cells - UA 0-5 SEEN /hpf (5-10); White Blood Cells 0-5 SEEN /hpf (0-5)
[2019-10-08 13:56] LABS: AST(SGOT) 20 U/L (15-37); Alanine Aminotransfer ALT/SGPT 21 U/L (13-56); Albumin, Serum 3.4 g/dL (3.2-5.0); Alkaline Phosphatase 94 U/L (45-117); Anion Gap 5 (5-15); BUN 12 mg/dL (7-18); BUN/Creat Ratio 17.6 RATIO (10-20); Bilirubin, Direct 0.11 mg/dL (0.00-0.30); Calcium,Total 8.8 mg/dL (8.5-10.1); Chloride 105 mmol/L (98-107); Creatinine, Serum 0.68 mg/dL (0.55-1.02); EST Glomerular Filtration Rate 93 mL/min (>60); Est Glom Filt Rate - Afr Amer 113 mL/min (>60); Estimated Creatinine Clearance 72.78 ml/min; Globulin 3.9 g/dL (2.2-4.2); Glucose 88 mg/dL (74-106); Lipase 78 U/L (73-393); Potassium 4.3 mmol/L (3.5-5.1); Protein, Total 7.3 g/dL (6.4-8.2); Sodium Level 139 mmol/L (136-145)
[2019-10-08 14:35] VITALS: BP 163/85; PULSE 75; RESP 16; O2SAT 98
[2019-10-08 15:21] VITALS: BP 154/71; PULSE 73; RESP 16; O2SAT 97
== END 2019-10-08 15:48 | disposition home or self-care (01) ==
LOC: ED 13:12
PROVIDERS: Emergency Provider Emergency Medicine; PCP Internal Medicine
DX: R10.11 Right upper quadrant pain (principal); R11.2 Nausea with vomiting, unspecified; I10 Essential (primary) hypertension; M06.9 Rheumatoid arthritis, unspecified; Z79.02 Long term (current) use of antithrombotics/antiplatelets; Z79.899 Other long term (current) drug therapy; Z88.8 Allergy status to other drugs, medicaments and biological substances; Z88.6 Allergy status to analgesic agent; Z88.5 Allergy status to narcotic agent; Z87.891 Personal history of nicotine dependence
CPT/HCPCS: 76705; 80048; 80076; 81001; 83690; 85025; 96374; 96375; 96376; 99284; J7030; A4216

== ENCOUNTER 2020-01-24 11:16 | Emergency (ER) | payer MEDICARE, SELFPAY ==
[2020-01-24 11:18] VITALS: BP 162/79; PULSE 85; RESP 17; TEMP 36.8; O2SAT 95; BMI 38.0
--- NOTE | 2020-01-24 11:34 | ED.VIS.GI ---
History of Present Illness Informant: Patient - Abdominal Pain/Flank Pain Onset: Month(s) - 3 months Context: Gradual Onset Timing: Intermittent Quality: Sharp Location: Epigastric, RUQ Current Severity: Severe Maximum Severity: Severe Worsened by: Food Relieved by: Nothing, Remaining Still - Nausea/Vomiting/Emesis GI Symptom: Nausea. Negative for: Vomiting Onset: Yesterday Severity: Mild - Diarrhea/Melena/Hematochezia GI Symptom: Negative for: Diarrhea, Melena, Hematochezia Associated Symptoms: Negative for: Dysuria, Frequency, Hematuria, Urgency Narrative: 59-year-old female history of peptic ulcer disease and hiatal hernia repair presents to the emergency department with abdominal pain. Patient has been having intermittent epigastric and right upper quadrant abdominal pain for the last 3 and half months since she was evaluated here. She was supposed to follow-up for a HIDA scan but due to the pandemic from the coronavirus was unable to. She states that she gets intermittent pain with eating especially at night in her epigastric area and right upper quadrant. She started to have worsening pain in the pain that she has been dealing with over the last 3 months last night after eating dinner. She woke up with some pain this morning and ate a bagel with butter and has been having worsening pain since that time. It is in her epigastric area and right upper quadrant radiates to her right posterior back. Nothing really makes it better or worse and it is been constant all morning. She does not feel lightheaded or dizzy. She denies chest pain or shortness of breath. She has had nausea but no vomiting. No diarrhea melena or hematochezia. No constipation. She has been urinating normally. She has not had difficulty swallowing. She is not currently on an H2 hemant or PPI. Her hiatal hernia surgery was nearly 1 year ago. She denies sick contacts. Denies upper respiratory symptoms or fevers. Prior similar symptoms: Yes Recent Illness/Hospitalization: No <Samuel Vigil - Last Filed: 01/24/20 12:02> <Lincoln Valdez - Last Filed: 01/24/20 15:25> Chief Complaint: Abd Pain Past Medical History Prior records reviewed: Yes Past Medical History: - - Hiatal hernia GERD iron deficiency anemia CHF COPD Surgical History: - - left shoulder, 2 c/s, colonoscopy and egd 5 years ago at [facility],left tkr, hiatal hernia repair Lives: With Family Smoking Status: Former smoker Alcohol: None Drugs: None - Family History Maternal Family History: Reports: - - mother with most of her large intestine removed - not crohns or ulceritive colitis but a different typ of IBD Paternal Family History: Reports: - - father with mi <Samuel Vigil - Last Filed: 01/24/20 12:02> <Lincoln Valdez - Last Filed: 01/24/20 15:25> - Allergies and Home Meds Allergies/Adverse Reactions: Allergies doxycycline calcium [From Vibramycin] Allergy (Verified 01/24/20 11:17) Anaphylaxis doxycycline hyclate [From Vibramycin] Allergy (Verified 01/24/20 11:17) Anaphylaxis doxycycline monohydrate [From Vibramycin] Allergy (Verified 01/24/20 11:17) Anaphylaxis NSAIDS (Non-Steroidal Anti-Inflamma Allergy (Verified 01/24/20 11:17) Anaphylaxis duloxetine [From Cymbalta] Adverse Reaction (Verified 01/24/20 11:17) HEADACHE AND UPSET STOMACH hydrocodone bitartrate [From Vicodin] Adverse Reaction (Verified 01/24/20 11:17) STOMACH UPSET hydromorphone HCl [From Dilaudid] Adverse Reaction (Verified 01/24/20 11:17) Vomiting morphine Adverse Reaction (Verified 01/24/20 11:17) Vomiting Primary Care Physician: Selene Painter MD [Primary Care Provider] - Review of Systems All systems negative except as indicated General: Denies: Chills, Fever, Sweats Eyes: Denies: Visual changes - bilaterally, Diplopia ENT: Denies: Rhinorrhea, Sore throat Cardiovascular: Denies: Chest pain, Palpitations Respiratory: Denies: Dyspnea, Cough, Dyspnea on exertion Gastrointestinal: Reports: Abdominal pain, Nausea. Denies: Vomiting, Diarrhea, Constipation, Melena, Hematochezia Genitourinary: Denies: Dysuria, Hematuria, Frequency Musculoskeletal: Denies: Back pain, Extremity Pain Skin: Denies: Rash, Abscess, Wounds Neurological: Denies: Headache, Weakness, Numbness <Samuel Vigil - Last Filed: 01/24/20 12:02> Physical Exam Vital Signs/Narrative: Vital Signs Temp Pulse Resp BP Pulse Ox 01/24/20 11:18 98.2 F 85 17 162/79 H 95 Inital Vital Signs reviewed: Yes General: Well nourished, Well developed, No Acute Distress Head: Normocephalic, Atraumatic Eyes: Perrl, EOMI ENT: Moist mucous membranes, No rhinorrhea Neck: Supple, Nontender Cardiovascular: Regular rate, Regular rhythm, No murmurs Respiratory: No distress, CTA bilaterally, Chest nontender Abdomen: Soft, Nondistended, Normal bowel sounds, Tender - Right upper quadrant and epigastric pain on palpation. Negative Mae sign. No guarding or rebound. Back: Nontender, Normal Inspection Extremities: Nontender, No edema Skin: Normal color, No rash Neurological: Alert, Oriented x3, Cranial nerves II-XII grossly intact, Normal Strength, Normal Sensation Psychological: Normal affect, Normal Mood <Samuel Vigil - Last Filed: 01/24/20 12:02> Vital Signs/Narrative: Vital Signs Temp Pulse Resp BP Pulse Ox 01/24/20 12:28 82 16 168/81 H 95 01/24/20 11:18 98.2 F 85 17 162/79 H 95 <Lincoln Valdez - Last Filed: 01/24/20 15:25> Diagnostic/Tx/Re-eval Laboratory Tests 01/24/20 01/24/20 Range/Units 11:25 11:25 WBC 5.9 (4.4-11.0) K/mm3 RBC 4.87 (4.2-5.4) M/mm3 Hgb 13.6 (12.0-15.0) g/dL Hct 44.8 (37-47) % MCV 92.0 (81-99) fL MCH 27.9 (27.0-32.0) pg MCHC 30.4 L (32-36) g/dL RDW Std Deviation 43.9 (35.1-43.9) fl RDW Coeff of Pepe 13.0 (11.6-14.6) % Plt Count 221 (150-450) K/mm3 MPV 11.6 (6.2-12.0) fl Immature Gran % (Auto) 0.300 (0.0-0.9) % Neut % (Auto) 68.7 (47-70) % Lymph % (Auto) 18.4 L (19-41) % Bell % (Auto) 8.3 (0-10) % Eos % (Auto) 3.1 (0-5) % Baso % (Auto) 1.2 H (0-1) % Absolute Neuts (auto) 4.0 (2.0-7.7) X10^3/uL Absolute Lymphs (auto) 1.08 (0.83-4.51) X10^3/uL Nucleated RBC % 0 (0-5) % Sodium 138 (136-145) mmol/L Potassium 3.9 (3.5-5.1) mmol/L Chloride 106 (98-107) mmol/L Carbon Dioxide 27.0 (21.0-32.0) mmol/L Anion Gap 5 (5-15) BUN 11 (7-18) mg/dL Creatinine 0.68 (0.55-1.02) mg/dL Estim Creat Clear Calc 72.78 ml/min Est GFR (MDRD) Af Amer 113 (>60) mL/min Est GFR (MDRD) Non-Af 93 (>60) mL/min BUN/Creatinine Ratio 16.2 (10-20) RATIO Glucose 128 H (74-106) mg/dL Calcium 8.7 (8.5-10.1) mg/dL Total Bilirubin 0.20 (0.20-1.00) mg/dL AST 22 (15-37) U/L ALT 22 (13-56) U/L Alkaline Phosphatase 111 (45-117) U/L Total Protein 7.5 (6.4-8.2) g/dL Albumin 3.3 (3.2-5.0) g/dL Globulin 4.2 (2.2-4.2) g/dL Albumin/Globulin Ratio 0.8 L (0.9-2.4) RATIO Lipase 88 (73-393) U/L - Medical Decision Making Patient was treated with fluids as well as morphine and Phenergan. CBC, CMP, lipase were obtained. These were all unremarkable. Repeat evaluation the patient feels much improved, her repeat abdominal exam is soft and nontender and she is tolerating by mouth at this time. Reviewed patient's visit from the emergency department here 3 months ago her gallbladder ultrasound was unremarkable. She was unable to follow-up for a HIDA scan. Discussed with patient that we do not feel she needs imaging emergently today in the emergency department and that she needs to follow-up with her doctor to schedule an outpatient HIDA scan. Patient agreeable with this plan. She requested a prescription for Pepcid which I will provide for her. Discussed diet modifications return precautions and she will call her doctor tomorrow Saturday for a visit to schedule HIDA scan <Samuel Vigil - Last Filed: 01/24/20 12:02> - Medical Decision Making Patient was seen with me. I did a [id number] examination with the patient. Patient presents with abdominal pain that became worse today. Patient has had multiple work-ups for her abdominal pain and was supposed to have an outpatient HIDA scan. Patient states this was not done due to the COVID scare. Patient states her pain is over the right upper quadrant and is worse after eating. Patient states it is worse immediately after eating. Patient states the pain radiates into her back. Vital signs are stable. Patient is afebrile. Patient is in no acute distress. Oral mucosa is pink and moist. Heart was regular rate and rhythm. Lungs are clear and equal bilaterally. Abdomen is soft. Bowel sounds are normal. There is some mild right upper quadrant tenderness. There is no rebound or guarding noted. Cranial nerves II through XII are intact. There are no focal motor or sensory deficits noted. CBC, comprehensive metabolic profile, and lipase were obtained were all within normal limits. Patient was feeling better on reevaluation. Patient was given a prescription for Pepcid. Patient was instructed to follow-up with her primary care physician in 5 to 7 days. Patient understood and was agreeable with the plan. All questions were answered. <Lincoln Valdez - Last Filed: 01/24/20 15:25> ED Disposition <Samuel Vigil - Last Filed: 01/24/20 12:02> <Lincoln Valdez - Last Filed: 01/24/20 15:25> - Plan for ED Patient: Disposition: Home or Assisted Living Diagnosis: Abdominal pain, History of repair of hiatal hernia, GERD (gastroesophageal reflux disease) Instructions: ED Abdominal Pain Unkn Cause Fem Prescriptions: Famotidine [Pepcid] 20 mg PO BID #28 tab Prescription Printed Referrals: Selene Painter MD [Primary Care Provider] -
[2020-01-24 11:47] LABS: Absolute Lymphocyte Count 1.08 X10^3/uL (0.83-4.51); Basophil# 0.07 X10^3/uL; Basophil% 1.2 % (0-1); Eosinophil# 0.18 X10^3/uL; Eosinophils% 3.1 % (0-5); Hematocrit 44.8 % (37-47); Hemoglobin 13.6 g/dL (12.0-15.0); Lymphocyte # 1.08 X10^3/ul (4.0); Lymphocyte % 18.4 % (19-41); Mean Corp Hgb Conc 30.4 g/dL (32-36); Mean Corpuscular Hgb 27.9 pg (27.0-32.0); Mean Platelet Vol. 11.6 fl (6.2-12.0); Monocyte# 0.49 X10^3/uL; Monocyte% 8.3 % (0-10); NRBC Flagged by Analyzer 0 % (0-5); Neutrophil # 4.03 X10^3/uL (2.7-7.7); Neutrophil % 68.7 % (47-70); Platelet Count 221 K/mm3 (150-450); RBC Distribution Width SD 43.9 fl (35.1-43.9); Red Blood Count 4.87 M/mm3 (4.2-5.4); White Blood Count 5.9 K/mm3 (4.4-11.0)
[2020-01-24] MEDS: proMETHazine 25 MG/ML Syringe 12.5 MG IV (11:49)
[2020-01-24] MEDS: 0.9% Normal Saline 1,000 ML 125 ML IV (11:49)
[2020-01-24] MEDS: Morphine 4 MG/ML Syringe IV (11:50)
[2020-01-24 11:55] LABS: ALB/GLOB Ratio 0.8 RATIO (0.9-2.4); AST(SGOT) 22 U/L (15-37); Alanine Aminotransfer ALT/SGPT 22 U/L (13-56); Albumin, Serum 3.3 g/dL (3.2-5.0); Alkaline Phosphatase 111 U/L (45-117); Anion Gap 5 (5-15); BUN 11 mg/dL (7-18); BUN/Creat Ratio 16.2 RATIO (10-20); Calcium,Total 8.7 mg/dL (8.5-10.1); Chloride 106 mmol/L (98-107); Creatinine, Serum 0.68 mg/dL (0.55-1.02); EST Glomerular Filtration Rate 93 mL/min (>60); Est Glom Filt Rate - Afr Amer 113 mL/min (>60); Estimated Creatinine Clearance 72.78 ml/min; Globulin 4.2 g/dL (2.2-4.2); Glucose 128 mg/dL (74-106); Lipase 88 U/L (73-393); Potassium 3.9 mmol/L (3.5-5.1); Protein, Total 7.5 g/dL (6.4-8.2); Sodium Level 138 mmol/L (136-145)
[2020-01-24 12:28] VITALS: BP 168/81; PULSE 82; RESP 16; O2SAT 95
== END 2020-01-24 12:29 | disposition home or self-care (01) ==
PROVIDERS: Emergency Provider Physician Assistant Medical; PCP Internal Medicine
DX: R10.11 Right upper quadrant pain (principal); R10.13 Epigastric pain; K21.9 Gastro-esophageal reflux disease without esophagitis; J44.9 Chronic obstructive pulmonary disease, unspecified; I50.9 Heart failure, unspecified; Z79.02 Long term (current) use of antithrombotics/antiplatelets; Z79.899 Other long term (current) drug therapy; Z87.11 Personal history of peptic ulcer disease; Z87.891 Personal history of nicotine dependence
CPT/HCPCS: 80053; 83690; 85025; 96361; 96374; 96375; 99283; J7030; A4216

== ENCOUNTER → 2020-02-22 17:28 | Outpatient (CLI) | payer MEDICARE, SELFPAY ==
[2020-01-24 11:18] VITALS: BMI 38.0
== END ==
PROVIDERS: PCP Internal Medicine; Referring Provider Nurse Practitioner; Visit Provider Nurse Practitioner
DX: Z20.828 Contact with and (suspected) exposure to other viral communicable diseases (principal)
CPT/HCPCS: 87635; 94799; U0003

== ENCOUNTER → 2020-10-20 09:49 | Outpatient (CLI) | payer MEDICARE, SELFPAY ==
--- NOTE | 2020-10-20 10:06 | RAD_ITS ---
PROCEDURE: Fluoroscopic guided Hip Injection DATE: 10/20/2020. INDICATION: Female, 60 years old. Chronic left hip pain. PHYSICIAN: Juan Antonio Becerra M.D. MEDICATIONS: 40 mg of KENALOG and 4 cc of 1% LIDOCAINE. 2% Lidocaine administered subcutaneously for local anesthesia. ACCESS SITE: Left hip. NEEDLE: 22-gauge spinal needle. FLUOROSCOPY TIME (if supplied): (0:30) minutes/seconds FINDINGS: The risks, benefits, and alternatives to the procedure were explained to the patient. The specific risks of bleeding, infection, and neurovascular injury were detailed and accepted. Witnessed informed consent was obtained. A 22-gauge needle was positioned under radiograph fluoroscopic localization. Approximately 2 cc of ISOVUE-300 instilled for localization purposes. Medication was then injected. The patient tolerated the procedure well without any immediate complications. RAD/Inj/Asp Viraj Jt Should/Hip/Knee IMPRESSION: 1. Successful fluoroscopic guided hip injection. Electronically Signed: Juan Antonio Becerra MD at 10:48 EDT , Service support ,
== END ==
LOC: RAD 09:50
PROVIDERS: PCP Internal Medicine; Referring Provider Family Medicine; Visit Provider Family Medicine
DX: M16.12 Unilateral primary osteoarthritis, left hip (principal); G89.29 Other chronic pain
CPT/HCPCS: 20610; 77002; Q9967

== ENCOUNTER → 2021-07-25 13:57 | Outpatient (CLI) | payer MEDICARE, SELFPAY ==
--- NOTE | 2021-07-25 14:08 | CT_ITS ---
STUDY: CT MAXILLOFACIAL SINUSES REASON FOR EXAM: Female, 61 years old. CHRONIC SINUSITIS RADIATION DOSAGE (If Supplied By Facility): CTDIvol = ( 33.06 ) mGy, DLP = ( 809.06 ) mGycm TECHNIQUE: The patient was scanned in a multi detector CT scanner. High resolution axial imaging was performed without the administration of intravenous contrast material. Sagittal and coronal images were reconstructed. Individualized dose optimization techniques were used for this CT. COMPARISON: None. FINDINGS: FRONTAL SINUSES: Normal aeration, without mucosal inflammatory disease. ETHMOIDAL SINUSES: Normal aeration, without mucosal inflammatory disease. MAXILLARY SINUSES: Normal aeration, without mucosal inflammatory disease. SPHENOIDAL SINUSES: Normal aeration, without mucosal inflammatory disease. There is patency of the bilateral maxillary infundibuli with normal uncinate processes, ethmoid bullae, and hiatus semilunaris. Normal bilateral middle turbinates. Normal bilateral inferior turbinates. Normal midline nasal septum. There is patency of the bilateral nasal airways. The visualized osseous structures are normal. The visualized bilateral orbital contents are normal. CT/Sinus/Facial Bone IMPRESSION: Normal CT examination of the maxillofacial sinuses. Electronically Signed: Teo Roy MD at 17:22 EST , Service support ,
== END ==
LOC: CT 13:58
PROVIDERS: PCP Internal Medicine; Referring Provider Otolaryngology; Visit Provider Otolaryngology
DX: J32.9 Chronic sinusitis, unspecified (principal)
CPT/HCPCS: 70486

== ENCOUNTER → 2022-09-06 | Outpatient (CLI) | payer MEDICARE, SELFPAY ==
--- NOTE | 2022-09-06 10:31 | TELEMED_ITS ---
[facility] has confirmed receipt of a request for visit. This document confirms receipt of the order initiating the consult. To find the results of the consultation, please view the patient's reports for the scanned Telemed Consult.
== END | disposition home or self-care (01) ==
LOC: PSN 08:16
PROVIDERS: PCP Nurse Practitioner Family; Visit Provider Psychiatry & Neurology Neurology
DX: G45.9 Transient cerebral ischemic attack, unspecified (principal)
CPT/HCPCS: 95819

== ENCOUNTER → 2022-09-19 | Outpatient (CLI) | payer MEDICARE, SELFPAY ==
[2022-09-19 13:13] LABS: Erythrocyte Sedimentation Rate 29 mm/hr (0-30)
[2022-09-19 13:16] LABS: Absolute Lymphocyte Count 1.24 X10^3/uL (0.83-4.51); Absolute Neutrophil Count 4.5 X10^3/uL (2.0-7.7); Basophil# 0.06 X10^3/uL; Basophil% 0.9 % (0-1); Eosinophil# 0.14 X10^3/uL; Eosinophils% 2.2 % (0-5); Hematocrit 42.7 % (37-47); Hemoglobin 13.2 g/dL (12.0-15.0); Lymphocyte # 1.24 X10^3/ul (0.83-4.51); Lymphocyte % 19.1 % (19-41); Mean Corp Hgb Conc 30.9 g/dL (32-36); Mean Corpuscular Volume 90.5 fL (81-99); Mean Platelet Vol. 11.9 fl (6.2-12.0); Monocyte# 0.48 X10^3/uL; Monocyte% 7.4 % (0-10); NRBC Flagged by Analyzer 0 % (0-5); Neutrophil # 4.54 X10^3/uL (2.7-7.7); Neutrophil % 69.9 % (47-70); Platelet Count 264 K/mm3 (150-450); RBC Distribution Width CV 13.5 % (11.6-14.6); RBC Distribution Width SD 45.1 fl (35.1-43.9); Red Blood Count 4.72 M/mm3 (4.2-5.4); White Blood Count 6.5 K/mm3 (4.4-11.0)
[2022-09-19 14:47] LABS: AST(SGOT) 21 U/L (15-37); Alanine Aminotransfer ALT/SGPT 16 U/L (13-56); Albumin, Serum 3.7 g/dL (3.2-5.0); Alkaline Phosphatase 99 U/L (45-117); Anion Gap 9 (5-15); BUN 10 mg/dL (7-18); BUN/Creat Ratio 13.4 RATIO (10-20); CRP 5.02 mg/L (0.0-3.0); Calcium,Total 9.3 mg/dL (8.5-10.1); Chloride 105 mmol/L (98-107); Creatinine, Serum 0.75 mg/dL (0.55-1.02); EST Glomerular Filtration Rate 83 mL/min (>60); Est Glom Filt Rate - Afr Amer 101 mL/min (>60); Globulin 3.7 g/dL (2.2-4.2); Glucose 99 mg/dL (74-106); LDH 227 U/L (84-246); Protein, Total 7.4 g/dL (6.4-8.2); Sodium Level 136 mmol/L (136-145)
[2022-09-21 10:09] LABS: Anti-Centromere B Ab <0.2 AI (0.0-0.9); Anti-Chromatin <0.2 AI (0.0-0.9); Anti-Jo <0.2 AI (0.0-0.9); Anti-Scleroderma-70 AB <0.2 AI (0.0-0.9); RNP Ab 0.3 AI (0.0-0.9); SJOGREN'S Anti-SS-A test < 0.2 AI (0.0-0.9); SJOGREN'S Anti-SS-B test < 0.2 AI (0.0-0.9); Smith Ab <0.2 AI (0.0-0.9)
[2022-09-21 15:08] LABS: Endomysial Antibody IgA Negative (Negative)
[2022-09-21 19:41] LABS: Immunoglobulin A 103 mg/dL (87-352); t-Transglutaminase IgA <2 U/mL (0-3)
[2022-09-21 19:50] LABS: Anti-dsDNA Ab <1 IU/mL (0-9)
[2022-09-23 15:07] LABS: Albumin 3.5 g/dL (2.9-4.4); Alpha-1-Globulins 0.3 g/dL (0.0-0.4); Alpha-2-Globulins 0.9 g/dL (0.4-1.0); Cytoplasmic Ab (C-ANCA) <1:20 titer (Neg:<1:20); Gamma Globulin 0.8 g/dL (0.4-1.8); Immunoglobulin A 103 mg/dL (87-352); Immunoglobulin E 11 IU/mL (6-495); Immunoglobulin G 916 mg/dL (586-1602); Immunoglobulin M 48 mg/dL (26-217); PROEL- TOTAL PROTEIN 6.5 g/dL (6.0-8.5)
[2022-09-24 09:51] LABS: Perinuclear Ab (P-ANCA) <1:20 titer (Neg:<1:20)
== END | disposition home or self-care (01) ==
PROVIDERS: PCP Nurse Practitioner Family; Referring Provider Nurse Practitioner Adult Health; Visit Provider Nurse Practitioner Adult Health
DX: K91.1 Postgastric surgery syndromes (principal); R11.0 Nausea; R10.9 Unspecified abdominal pain
CPT/HCPCS: 36415; 80053; 82784; 82785; 83516; 83615; 84165; 85025; 85652; 86140; 86225; 86235; 86255; 86256; 86334

== ENCOUNTER → 2022-10-15 | Outpatient (CLI) | payer MEDICARE, SELFPAY ==
--- NOTE | 2022-10-15 13:28 | CT_ITS ---
STUDY: CT ENTEROGRAPHY WITH CONTRAST REASON FOR EXAM: Female, 62 years old. Crohn''s suspected, diarrhea -- enterography RADIATION DOSAGE (If Supplied By Facility): CTDIvol = ( 29.14 ) mGy, DLP = ( 2481.49 ) mGycm TECHNIQUE: Transaxial images were obtained from the dome of the diaphragm to the symphysis pubis with oral contrast. Negative density oral contrast according to CT enterography protocol 100 mL Isovue-300 was administered intravenously. Sagittal and coronal images were reconstructed. TECHNICAL QUALITY: Image Quality: Satisfactory Small Bowel Distension: Adequate. Individualized dose optimization techniques were used for this CT. COMPARISON: None. FINDINGS: Bowel: Bowel wall thickening: Absent. Skip lesions: None. Vascularity: Normal. Enhancement: Normal. Fistula: None. Abscess: None. Other Findings: Mild subpleural atelectasis of the right lower lobe. The visualized portions of the heart are within normal limits Normal liver. Normal gallbladder and extrahepatic biliary system. Normal spleen. Normal pancreas. Normal bilateral adrenal glands. Normal right kidney. Normal left kidney. Normal visualized stomach. No colon wall thickening. There are a few scattered colonic diverticula. The appendix is not seen but no secondary signs of appendicitis. Atherosclerosis of the abdominal aorta and proximal iliac arteries. Normal interior vena cava. Normal retroperitoneum. Normal urinary bladder. Normal abdominal wall. Left hip replacement causes moderate spray artifact. There are degenerative changes of the lumbar spine. CT/Abdomen/Pelvis WITH Contrast IMPRESSION: No bowel wall thickening or active mucosal inflammation/enteritis. Electronically Signed: Augusto Lundberg (Brooks), at 16:04 EDT ,
== END | disposition home or self-care (01) ==
PROVIDERS: PCP Nurse Practitioner Family; Referring Provider Nurse Practitioner Adult Health; Visit Provider Nurse Practitioner Adult Health
DX: K50.90 Crohn's disease, unspecified, without complications (principal)
CPT/HCPCS: 74177; Q9967; A4216

== ENCOUNTER → 2022-10-17 | Outpatient (CLI) | payer MEDICARE, SELFPAY ==
--- NOTE | 2022-10-17 15:06 | NEURO ---
NCS and/or EMG Patient Report Ordering Doctor: GIANNI CERVANTES DATE OF SERVICE: 10/17/22 Marimar presents for electrodiagnostic testing of the right upper and right lower limb. She reports shaking in the right hand and pain around the right knee. She reports that her right knee pain is at times severe, causing her to fall. She reports intermittent lower back pain. Electrodiagnostic findings: Right median motor nerve demonstrates normal distal latency, amplitude and conduction velocity. Normal right ulnar motor response. Sensory responses are within normal limits. Normal right peroneal and tibial motor response. Normal right median, right ulnar, right tibial and right peroneal F-wave. Borderline prolonged H-reflex bilaterally. On needle EMG, all muscles tested in the right upper and right lower limb showed no evidence of denervation with normal motor unit action potentials Electrodiagnostic impression: This is a normal electrodiagnostic study of the right upper and right lower limb. There is no electrodiagnostic evidence for peripheral neuropathy, cervical radiculopathy or lumbosacral radiculopathy.
== END | disposition home or self-care (01) ==
LOC: PSN 09:10
PROVIDERS: PCP Nurse Practitioner Family; Referring Provider Psychiatry & Neurology Neurology; Visit Provider Psychiatry & Neurology Neurology
DX: R26.81 Unsteadiness on feet (principal)
CPT/HCPCS: 95886; 95913

== ENCOUNTER 2022-11-06 12:48 | Day surgery (SDC) | payer MEDICARE, SELFPAY ==
[2022-11-06 13:10] VITALS: BP 142/73; PULSE 84; RESP 18; TEMP 36.9; O2SAT 96; BMI 32.8
[2022-11-06] MEDS: Lactated Ringers 1,000 ML 15 ML IV (13:15)
--- NOTE | 2022-11-06 14:00 | COLBX_PTH ---
PATIENT: DEWEY HORTA LOC: [facility] U#:[id number] AGE/SX: 62/F ROOM: RE11/06/[address]: Dr. Andrez Pitts DO : 1960 BED: DIS: 11/06/2022 SPEC #: [id number] RECD: 11/06/22 16:17 STATUS: SAMREEN YOMAIRA #: [id number] THALIA: 11/06/22 14:[address]: Andrez Pitts DEPT: SURGICAL PATHOLOGY RECD BY: Mary Ruiz ENTERED: 11/07/22 11:09 SP TYPE: COLON BX OTHR DR: Ciara Dhillon, ANALYTICAL SCIENCES DIRECTOR-C Tissues: A - Duodenum, NOS B - Esophagus, NOS C - Ileum, NOS D - COLON BIOPSY Procedures: Special Stain Group II Surgery Specimen Level IV Alcian Blue/PAS (control) HEADER OPERATION: Colonoscopy with biopsies, EGD with biopsies ([facility] [place]) PRE-OP DIAGNOSIS: Diarrhea TISSUE SUBMITTED: A ? Duodenum biopsy, B ? Distal esophagus biopsy, C ? Terminal ileum biopsy, D ? Random colon biopsy MICROSCOPIC DIAGNOSIS A. Duodenum, biopsy: Fragments of duodenal mucosa, no pathologic diagnosis. B. Distal esophagus, biopsy: Fragments of gastroesophageal mucosa with chronic inflammation. Intestinal metaplasia (goblet cell metaplasia) not identified. See comment. C. Terminal ileum, biopsy: Fragments of small intestinal mucosa, no pathologic diagnosis. D. Colon, random biopsy: Fragments of colonic mucosa, no pathologic diagnosis. SJ:vera 11/08/2022 COMMENT A. Alcian blue/PAS stain with matched control is used in the evaluation of the specimen. MICROSCOPIC DESCRIPTION Slides are reviewed. GROSS DESCRIPTION A - Received in fixative is one container labeled with the patient's name and designated duodenum biopsy. The specimen consists of two irregular fragments of light akhtar soft tissue that in aggregate measure 0.5 x 0.3 x 0.1 cm. The specimen is totally submitted in one cassette. B - Received in fixative is one container labeled with the patient's name and designated distal esophagus. The specimen consists of multiple irregular fragments of light akhtar soft tissue that in aggregate measure 0.8 x 0.3 x 0.1 cm. The specimen is totally submitted in one cassette. C - Received in fixative is one container labeled with the patient's name and designated terminal ileum. The specimen consists of two irregular fragments of light akhtar soft tissue that in aggregate measure 1.0 x 0.2 x 0.1 cm. The specimen is totally submitted in one cassette. D - Received in fixative is one container labeled with the patient's name and designated random colon biopsy. The specimen consists of multiple irregular fragments of light akhtar soft tissue that in aggregate measure 1.0 x 0.5 x 0.1 cm. The specimen is totally submitted in one cassette. / AM:vera 11/07/2022 TC:3 CPT: 17292 x4, 75291
--- NOTE | 2022-11-06 14:47 | HP.PCM_ITS ---
History and Physical Date of Admission: 11/06/22 ?62 F who presents to the office today to transfer care from another GI practice. She has chronic nausea, chronic diarrhea. In 2019 she had fundoplication for very large hiatal hernia that was in her chest and was causing dyspnea, surgery was done at [facility]. Her surgeon sent her to [facility] for chronic nausea which began after fundoplication, which isn't only post-prandial, gets dry heaves, relieved with phenergan--takes it 1- 2x every day. Has nausea most days. Has poor appetite so only eats once a day. Has lost 30 lbs unintentionally in past 4 months. Has early satiety. Occas has to focus on swallowing, will have to think about swallowing saliva. Doesn't think this is just since her CVA. Food not getting stuck. She has Sjogren's so she drinks a lot when eating. No heartburn or acid reflux since fundoplication. She used to take esomeprazole. No hx Cartwright's esophagus. One hour after eating she has diarrhea. Stool is always loose, never formed, this started about 6 mos ago. No melena or hematochezia. Rare nocturnal diarrhea. Gets painful abd cramps before diarrhea. If she took hyoscyamine before eating, then it helped minimize the diarrhea. No relief with dicyclomine. Hasn't been on cholestyramine or colestipol. Had HIDA scan, US, gastric emptying study at [facility], we'll request records 08/2017 EGD normal esophagus/stomach/duodenum; neg celiac on bxs from duodenum, neg H pylori; colonoscopy diverticulosis, no bxs PMH includes IBS, diverticulitis, CVA, RA, Sjogren's, former smoker, OA, asthma, CHF, coronary artery stenosis, hyperlipidemia, iron malabsorption, anemia, osteoporosis, vit D deficiency PSH includes fundoplication, tonsillectomy, , shoulder, knee, hip FH includes mother with UC ROS Const Constitutional: Positive for fatigue, frequent falls, headache(s) and weight change ENT ENT: Positive for headache(s); No difficulty swallowing Cardio Cardiology: Positive for leg pain with exertion Gastro GI: Positive for abdominal pain, bloating, diarrhea and nausea/dyspepsia; No belching, change in bowel habits, change in stool character, coffee ground emesis, constipation, cramping, heartburn, difficulty swallowing, feeling full early, excessive flatus, incontinent of stools, Vomiting blood/hematemesis, Blood in stool, loose stools, Black,tarry stools, pain with swallowing, vomiting or other Musc Musculoskeletal: Positive for abnormal gait, joint pain, back pain, joint swelling, muscle cramps, muscle weakness, stiffness, Arthritis, leg pain at night and leg pain with exertion Skin Skin: No yellowing of the eye or itchy eyes Neuro Neurology: Positive for abnormal gait, dizziness, frequent falls, headache(s) and tremor(s) Psych Psychiatric: Positive for anxiety and Positive for depression Endo Endocrine: Positive for fatigue and weight change Aller/Imm Allergy/Immunologic: No itchy eyes Andrew/Lymp Hematologic/Lymphatic: Positive for easy bruising; No easy bleeding Exam Const General: cooperative and comfortable Nutritional Appearance: obese Orientation: alert, awake and oriented x3 Other: walks with a cane Eyes Sclera: sclerae normal Resp Effort & Inspection: normal respiratory effort GI Inspection: normal to inspection Palpation: soft, no hepatosplenomegaly, no masses and nontender Skin General: no rashes or lesions noted Psych Mood: euthymic mood Quality Reporting Tobacco Screening ([facility] 138) Smoking Status: Former smoker Assessment and Plan Assessment and Plan (1) Nausea: ?Status:?Chronic ?Plan: 62 yr old female with chronic nausea since having fundoplication for large hiatal hernia in 2019, as well as more recent onset of postprandial diarrhea Labs today We'll get records from previous GI, then decide re w/u f/u 2-3 mos rx hyoscyamine since she thinks it was somewhat helpful for cramps and diarrhea continue phenergan for nausea (2) Diarrhea: ?Status:?Chronic ?Plan: see above ? ? ? Orders: Orders Comprehensive Metabolic Profil Today K91.1 - Postgastric surgery syndromes, R11.0 - Nausea ? CRP Today K91.1 - Postgastric surgery syndromes, R11.0 - Nausea ? LDH Today K91.1 - Postgastric surgery syndromes, R11.0 - Nausea ? CBC W/Diff, Automated Today K91.1 - Postgastric surgery syndromes, R10.9 - Unspecified abdominal pain, R11.0 - Nausea ? Erythrocyte Sed Rate Today K91.1 - Postgastric surgery syndromes, R11.0 - Nausea ? YADIEL Comprehensive Panel Today K91.1 - Postgastric surgery syndromes, R11.0 - Nausea ? Calprotectin, Stool Today K91.1 - Postgastric surgery syndromes, R11.0 - Nausea ? Stool Lactoferrin/WBC Today K91.1 - Postgastric surgery syndromes, R11.0 - Nausea ? ANCA Today K91.1 - Postgastric surgery syndromes, R11.0 - Nausea ? Celiac Disease Profile Today K91.1 - Postgastric surgery syndromes, R11.0 - Nausea ? Immunoglobulins G/A/M/E Today K91.1 - Postgastric surgery syndromes, R11.0 - Nausea ? ANTONIO + Protein Elect, Serum Today K91.1 - Postgastric surgery syndromes, R11.0 - Nausea ? Miscellaneous Lab Procedure Today K91.1 - Postgastric surgery syndromes, R11.0 - Nausea ? Medications: New hyoscyamine sulfate 0.125 mg? PO BID-QID PRN 60 tabs 0RF josé sea ? ? I have examined the patient and the H&P has been reviewed. There are no clinical changes since date of exam.
--- NOTE | 2022-11-06 15:28 | OP.CCLET_ITS ---
11/06/2022 [facility] Re : Upper GI endoscopy procedure for Marimar Wang Dear Jacquie This procedure was performed on Sunday, November 06, 2022. My impressions and recommendations are as follows: Impressions : - Z-line irregular, 39 cm from the incisors. Biopsied. - Small hiatal hernia. - A Toupet fundoplication was found. The wrap appears intact. - No gross lesions in the first portion of the duodenum. Biopsied. Recommendations : - Discharge patient to home. - Resume previous diet. - Continue present medications. - Await pathology results. My findings are described in the full procedure note, which is enclosed. If I can be of further assistance, please feel free to contact me at . Sincerely, Andrez Friend, 11/06/2022 3:27:28 PM This report has been signed electronically.
--- NOTE | 2022-11-06 15:28 | OP.EGD_ITS ---
Patient Name: Marimar Wang Procedure Date: 11/06/2022 2:42 PM Date of : 1960 Age: 62 Procedure: Upper GI endoscopy Indications: Epigastric abdominal pain, Functional Dyspepsia Providers: Andrez Pitts DO Medicines: Monitored Anesthesia Care Patient Profile: This is a 62 year old female. Refer to note in patient chart for documentation of history and physical. Patient has symptoms of chronic abdominal cramping and chronic global abdominal pain. Complications: No immediate complications. Procedure: Pre-Anesthesia Assessment: - Prior to the procedure, a History and Physical was performed, and patient medications and allergies were reviewed. The patient is competent. The risks and benefits of the procedure and the sedation options and risks were discussed with the patient. All questions were answered and informed consent was obtained. Patient identification and proposed procedure were verified by the physician in the pre-procedure area. Mental Status Examination: alert and oriented. Airway Examination: normal oropharyngeal airway and neck mobility. Respiratory Examination: clear to auscultation. CV Examination: normal. Prophylactic Antibiotics: The patient does not require prophylactic antibiotics. Prior Anticoagulants: The patient has taken no previous anticoagulant or antiplatelet agents. ASA Grade Assessment: II - A patient with mild systemic disease. After reviewing the risks and benefits, the patient was deemed in satisfactory condition to undergo the procedure. The anesthesia plan was to use monitored anesthesia care (MAC). Immediately prior to administration of medications, the patient was re-assessed for adequacy to receive sedatives. The heart rate, respiratory rate, oxygen saturations, blood pressure, adequacy of pulmonary ventilation, and response to care were monitored throughout the procedure. The physical status of the patient was re-assessed after the procedure. After obtaining informed consent, the endoscope was passed under direct vision. Throughout the procedure, the patient's blood pressure, pulse, and oxygen saturations were monitored continuously. The colonoscope was introduced through the mouth, and advanced to the second part of duodenum. The upper GI endoscopy was accomplished without difficulty. The patient tolerated the procedure well. Scope In: 2:51:19 PM Scope Out: 2:55:56 PM Total Procedure Duration Time 0 hours 4 minutes 37 seconds Findings: The Z-line was irregular and was found 39 cm from the incisors. Biopsies were taken with a cold forceps for histology. Biopsies were taken with a cold forceps for histology. Verification of patient identification for the specimen was done. Estimated blood loss was minimal. A small hiatal hernia was present. Evidence of a Toupet fundoplication was found in the gastric fundus. The wrap appeared intact. This was traversed. No gross lesions were noted in the first portion of the duodenum. Biopsies were taken with a cold forceps for histology. Verification of patient identification for the specimen was done. Estimated blood loss was minimal. Impression: - Z-line irregular, 39 cm from the incisors. Biopsied. - Small hiatal hernia. - A Toupet fundoplication was found. The wrap appears intact. - No gross lesions in the first portion of the duodenum. Biopsied. Recommendation: - Discharge patient to home. - Resume previous diet. - Continue present medications. - Await pathology results. Procedure Code(s): --- Professional --- 77722, Esophagogastroduodenoscopy, flexible, transoral; with biopsy, single or multiple CPT copyright 2017 [employer]. All rights reserved. The codes documented in this report are preliminary and upon sleep lab technologist review may be revised to meet current compliance requirements. Andrez Pitts DO 11/06/2022 3:27:28 PM This report has been signed electronically. Number of Addenda: 0 Note Initiated On: 11/06/2022 2:42 PM
--- NOTE | 2022-11-06 15:30 | OP.COLON_ITS ---
Patient Name: Marimar Wang Procedure Date: 11/06/2022 2:56 PM Date of : 1960 Age: 62 Procedure: Colonoscopy Indications: Chronic diarrhea, Clinically significant diarrhea of unexplained origin Providers: Andrez Pitts DO Medicines: Monitored Anesthesia Care Patient Profile: This is a 62 year old female. Refer to note in patient chart for documentation of history and physical. Patient has symptoms of chronic abdominal cramping and chronic global abdominal pain. Last Colonoscopy: date unknown. Unable to locate last colonoscopy report. Complications: No immediate complications. Procedure: Pre-Anesthesia Assessment: - Prior to the procedure, a History and Physical was performed, and patient medications and allergies were reviewed. The patient is competent. The risks and benefits of the procedure and the sedation options and risks were discussed with the patient. All questions were answered and informed consent was obtained. Patient identification and proposed procedure were verified by the physician in the pre-procedure area. Mental Status Examination: alert and oriented. Airway Examination: normal oropharyngeal airway and neck mobility. Respiratory Examination: clear to auscultation. CV Examination: normal. Prophylactic Antibiotics: The patient does not require prophylactic antibiotics. Prior Anticoagulants: The patient has taken no previous anticoagulant or antiplatelet agents. ASA Grade Assessment: II - A patient with mild systemic disease. After reviewing the risks and benefits, the patient was deemed in satisfactory condition to undergo the procedure. The anesthesia plan was to use monitored anesthesia care (MAC). Immediately prior to administration of medications, the patient was re-assessed for adequacy to receive sedatives. The heart rate, respiratory rate, oxygen saturations, blood pressure, adequacy of pulmonary ventilation, and response to care were monitored throughout the procedure. The physical status of the patient was re-assessed after the procedure. After I obtained informed consent, the scope was passed under direct vision. Throughout the procedure, the patient's blood pressure, pulse, and oxygen saturations were monitored continuously. The colonoscope was introduced through the anus and advanced to the terminal ileum. The colonoscopy was performed without difficulty. The patient tolerated the procedure well. The quality of the bowel preparation was good. Scope In: 2:58:31 PM Scope Withdrawal Time 0 hours 12 minutes 24 seconds Scope Out: 3:20:11 PM Total Procedure Duration Time 0 hours 21 minutes 40 seconds Findings: The perianal and digital rectal examinations were normal. A few small-mouthed diverticula were found in the recto-sigmoid colon and sigmoid colon. An area of mildly congested mucosa was found in the descending colon, at the hepatic flexure and in the ascending colon. Biopsies were taken with a cold forceps for histology. Verification of patient identification for the specimen was done. Estimated blood loss was minimal. Impression: - Diverticulosis in the recto-sigmoid colon and in the sigmoid colon. - Congested mucosa in the descending colon, at the hepatic flexure and in the ascending colon. Biopsied. Recommendation: - Discharge patient to home. - Resume previous diet. - Continue present medications. - Await pathology results. - Repeat colonoscopy is recommended for surveillance. The colonoscopy date will be determined after pathology results from today's exam become available for review. Procedure Code(s): --- Professional --- 19796, Colonoscopy, flexible; with biopsy, single or multiple CPT copyright 2017 [employer]. All rights reserved. The codes documented in this report are preliminary and upon fuel handler review may be revised to meet current compliance requirements. Andrez Pitts DO 11/06/2022 3:30:05 PM This report has been signed electronically. Number of Addenda: 0 Note Initiated On: 11/06/2022 2:56 PM
--- NOTE | 2022-11-06 15:30 | OP.CCLET_ITS ---
11/06/2022 [facility] : Colonoscopy procedure for Marimar Wang Dear Jacquie This procedure was performed on Sunday, November 06, 2022. My impressions and recommendations are as follows: Impressions : - Diverticulosis in the recto-sigmoid colon and in the sigmoid colon. - Congested mucosa in the descending colon, at the hepatic flexure and in the ascending colon. Biopsied. Recommendations : - Discharge patient to home. - Resume previous diet. - Continue present medications. - Await pathology results. - Repeat colonoscopy is recommended for surveillance. The colonoscopy date will be determined after pathology results from today's exam become available for review. My findings are described in the full procedure note, which is enclosed. If I can be of further assistance, please feel free to contact me at . Sincerely, Andrez Pitts, 11/06/2022 3:30:05 PM This report has been signed electronically.
[2022-11-06 15:31] VITALS: BP 142/73; BP 152/77; PULSE 78; RESP 16; TEMP 36.1; O2SAT 98
[2022-11-06 15:35] VITALS: BP 142/73; BP 160/65; PULSE 73; RESP 16; O2SAT 100
[2022-11-06 15:41] VITALS: BP 109/96; BP 142/73; PULSE 73; RESP 16; O2SAT 99
[2022-11-06 15:47] VITALS: BP 142/73; BP 148/65; PULSE 70; RESP 16; TEMP 36.3; O2SAT 100
[2022-11-06 16:02] VITALS: BP 142/73
== END 2022-11-06 16:12 | disposition home or self-care (01) ==
LOC: EN 12:49 → AC 12:50
PROVIDERS: PCP Nurse Practitioner Family; Referring Provider Nurse Practitioner Family; Visit Provider Internal Medicine Gastroenterology
PROC: 0DJD8ZZ Inspection of Lower Intestinal Tract, Via Natural or Artificial Opening Endoscopic (ICD-10-PCS; CPT 45378; principal; 2022-11-06 13:55)
DX: K20.90 Esophagitis, unspecified without bleeding (principal); K44.9 Diaphragmatic hernia without obstruction or gangrene; K57.30 Diverticulosis of large intestine without perforation or abscess without bleeding; Z87.891 Personal history of nicotine dependence; I10 Essential (primary) hypertension; Z79.899 Other long term (current) drug therapy
CPT/HCPCS: 45380; 43239; 88305; 88313; J7120; J2405

== ENCOUNTER → 2022-11-29 | Outpatient (CLI) | payer MEDICARE, MEDICAID, SELFPAY ==
--- NOTE | 2022-11-29 13:10 | MRI_ITS ---
EXAM: MR RIGHT LOWER EXTREMITY WITHOUT INTRAVENOUS CONTRAST, KNEE CLINICAL INDICATION: RIGHT KNEE PAIN/SWELLING TECHNIQUE: Multiplanar and multisequence MR images of the right knee without intravenous contrast. COMPARISON: No relevant prior studies available. FINDINGS: BONES/JOINTS: Moderate tricompartmental osteoarthritic changes, worse at the medial femorotibial compartment. No bone marrow signal alterations. EXTENSOR MECHANISM: Unremarkable. MEDIAL MENISCUS: Suspect a complex tear of the anterior horn of the medial meniscus. Approximately 3.5 mm of peripheral extrusion of the body segment of the medial meniscus. Degenerative signal involving the posterior horn of the medial meniscus LATERAL MENISCUS: Unremarkable. MEDIAL CAPSULE/SUPPORTING STRUCTURES: Unremarkable. Intact. LATERAL CAPSULE/SUPPORTING STRUCTURES: Unremarkable. Lateral collateral ligamentous complex, inclusive of the popliteal tendon, are intact. ANTERIOR CRUCIATE LIGAMENT: Unremarkable. Intact. POSTERIOR CRUCIATE LIGAMENT: Unremarkable. Intact. MUSCLES: Unremarkable. CARTILAGE: Unremarkable. Intact. FLUID: Moderate tibiotalar joint effusion. No Jennings''s cyst. OTHER SOFT TISSUES: See above. MRI/Lower Ext Joint Only (Routine) IMPRESSION: 1. Suspect a complex tear of the anterior horn of the medial meniscus. Approximately 3.5 mm of peripheral extrusion of the body segment of the medial meniscus. 2. Background of moderate tricompartmental osteoarthritic changes, worse at the medial femorotibial compartment where there are areas of full-thickness chondral loss on both sides of the articulation. Electronically Signed: Gaudencio Riggs MD at 21:15 EDT ,
== END | disposition home or self-care (01) ==
LOC: MRI 13:06
PROVIDERS: PCP Nurse Practitioner Family; Referring Provider Physician Assistant; Visit Provider Physician Assistant
DX: M23.91 Unspecified internal derangement of right knee (principal)
CPT/HCPCS: 73721

== ENCOUNTER → 2022-12-05 | Outpatient (CLI) | payer MEDICARE, MEDICAID, SELFPAY ==
[2022-12-13 10:09] LABS: Calprotectin, Stool 57 ug/g (0-120)
== END | disposition home or self-care (01) ==
LOC: LABSPEC 12:15
PROVIDERS: PCP Nurse Practitioner Family; Referring Provider Nurse Practitioner Adult Health; Visit Provider Nurse Practitioner Adult Health
DX: R19.7 Diarrhea, unspecified (principal); K91.1 Postgastric surgery syndromes; R11.0 Nausea
CPT/HCPCS: 83630; 83993

== ENCOUNTER → 2023-01-07 | Outpatient (CLI) | payer MEDICARE, MEDICAID, SELFPAY ==
--- NOTE | 2023-01-07 14:23 | CT_ITS ---
EXAM: CT RIGHT LOWER EXTREMITY WITHOUT INTRAVENOUS CONTRAST CLINICAL INDICATION: templating for right TKA TECHNIQUE: Helically acquired images were obtained of the right lower extremity without intravenous contrast. 2-D reformats were performed by the technologist. CTDIvol = ( 18.76 ) mGy, DLP = ( 1203.68 ) mGycm This CT exam was performed using one or more of the following dose reduction techniques: automated exposure control, adjustment of the mA and/or kV according to patient size, and/or use of iterative reconstruction technique. COMPARISON: No relevant prior studies available. FINDINGS: BONES/JOINTS: Moderate to severe tricompartmental arthrosis of the knee is worse at the medial femorotibial compartment. Mild to moderate osteoarthrosis involving the hip joint. Relatively mild degenerative changes at the tibiotalar articulation. Irregular calcification involving the anterior calcaneus. Calcaneal enthesopathy. At least moderate suprapatellar joint effusion. No acute fracture. No subluxation. Normal alignment. SOFT TISSUES: Unremarkable. No soft tissue swelling or gas. No radiopaque foreign body. OTHER FINDINGS: No masses or fluid collections. CT/Extremity Lower without Contra IMPRESSION: Preoperative planning study for total knee arthroplasty with no unexpected findings. Electronically Signed: Gaudencio Riggs MD at 23:37 EDT ,
== END | disposition home or self-care (01) ==
LOC: CT 14:21
PROVIDERS: PCP Nurse Practitioner Family; Referring Provider Orthopaedic Surgery; Visit Provider Orthopaedic Surgery
DX: M17.11 Unilateral primary osteoarthritis, right knee (principal)
CPT/HCPCS: 73700

== ENCOUNTER 2023-01-23 05:17 | Inpatient (IN) | payer MEDICARE, MEDICAID, SELFPAY ==
[2023-01-11 16:19] LABS: Magnesium 1.9 mg/dL (1.6-2.6)
[2023-01-11 16:31] LABS: International Normalized Ratio 1.1
[2023-01-11 16:32] LABS: Partial Thromboplast Time 31.4 Seconds (24.1-36.2)
[2023-01-11 16:35] LABS: Hemoglobin A1c 5.4 % (3.8-5.6)
[2023-01-13 08:09] LABS: Fructosamine 241 umol/L (0-285)
[2023-01-23] VITALS (13 sets, daily range): BP systolic 87–145; BP diastolic 51–99; PULSE 74–88; RESP 14–18; TEMP 36.4–36.9; O2SAT 94–100; BMI 34.3
[2023-01-23] MEDS: Lactated Ringers 1,000 ML 15 ML IV ×2 (06:00→09:30)
[2023-01-23] MEDS: Magnesium 2 GM for ERAS IV (06:05)
[2023-01-23] MEDS: Scopolamine 1mg/72hr Patch 1 PATCH TD (06:15)
[2023-01-23] MEDS: Acetaminophen 500 MG Tablet 1000 MG PO ×3 (06:15→22:48)
[2023-01-23] MEDS: Gabapentin 600 MG Tablet PO (06:15)
--- NOTE | 2023-01-23 07:30 | KNEE_PTH ---
PATIENT: DEWEY HORTA LOC: MS3 U#:[id number] AGE/SX: 62/F [place] [facility] [place]23/[address]: Dr. Michael Rawls DO : 1960 BED: 1 DIS: 01/24/2023 SPEC #: [id number] RECD: 01/23/23 13:02 STATUS: SAMREEN REJc #: [id number] THALIA: 01/23/23 07:[address]: Michael Rawls DEPT: SURGICAL PATHOLOGY RECD BY: Brissa Alicia ENTERED: 01/23/23 13:09 SP TYPE: TOTAL KNEE OTHR DR: Ciara Dhillon, MANAGER WOMEN-Marga Tissues: Knee, NOS Procedures: Decalcification bone/plaque Surgery Specimen Level IV HEADER OPERATION: ERAS, total knee replacement robotic arm assist PRE-OP DIAGNOSIS: Right knee pain, DJD TISSUE SUBMITTED: Right knee bone and tissue MICROSCOPIC DIAGNOSIS Bone and tissue of right knee, total knee resection: Severe degenerative joint disease. AM:vera 01/28/2023 MICROSCOPIC DESCRIPTION Slides are reviewed. GROSS DESCRIPTION Received is one container designated bone and soft tissue right knee. The specimen consists of multiple fragments of akhtar-yellow bone measuring in aggregate 8.5 x 10. x 3.0 cm. Also in the specimen container are multiple fragments of yellow-white soft tissue measuring in aggregate 7.0 x 5.0 x 1.0 cm. A number of bony fragments contain articular surfaces consistent with tibial plateau and femoral condyle and displaying prominent osteophyte formation and bone erosion. Manager Registration sections are submitted in three cassettes as follows: 1 - soft tissue, 2 - bone, 3 - cartilage. Cassettes 2 & 3 are submitted after decalcification. / SJ:vera 01/23/2023 TC:5 [facility]: [id number], [id number]
--- NOTE | 2023-01-23 07:39 | HP.PCM_ITS ---
History and Physical Date of Admission: 01/23/23 [facility] [address] [place] [address] OFFICE VISIT Date of Service: 12/17/22 MR#: [id number] Acct: [id number] Name: DEWEY HORTA Rep #: [id number] : 1960 Provider: Dr. Michael Rawls DO Age/Sex: 62/F Location[facility] Status: Signed Intake Intake Visit Reasons: RIGHT KNEE Chief Complaint: right knee Accompanied by: Daughter Is patient in pain?: Yes Pain scale (1-10): 8 Allergies doxycycline calcium [From Vibramycin] Allergy (Verified 12/06/22 10:48) Anaphylaxisdoxycycline hyclate [From Vibramycin] Allergy (Verified 12/06/22 10:48) Anaphylaxisdoxycycline monohydrate [From Vibramycin] Allergy (Verified 12/06/22 10:48) AnaphylaxisNSAIDS (Non-Steroidal Anti-Inflamma Allergy (Verified 12/06/22 10:48) Anaphylaxisduloxetine [From Cymbalta] Adverse Reaction (Verified 12/06/22 10:48) HEADACHE AND UPSET STOMACHhydrocodone bitartrate [From Vicodin] Adverse Reaction (Verified 12/06/22 10:48) STOMACH UPSEThydromorphone HCl [From Dilaudid] Adverse Reaction (Verified 12/06/22 10:48) Vomitingmorphine Adverse Reaction (Verified 12/06/22 10:48) Vomiting Medications albuterol sulfate 90 mcg/actuation aerosol inhaler 2 puff inhalation Q4H PRN PRN Shortness Of Breath 03/13/15 [History Confirmed 12/17/22] clopidogrel 75 mg tablet 75 mg PO DAILY BLOOD THINNER 03/13/15 [History Confirmed 12/17/22] simvastatin 20 mg tablet 40 mg PO QHS CHOLESTEROL 03/13/15 [History Confirmed 12/17/22] fluoxetine 20 mg capsule 60 mg PO QHS MENTAL HEALTH 12/13/15 [History Confirmed 12/17/22] acetaminophen 325 mg tablet (Tylenol) 500 mg PO Q6H PRN Pain 07/12/17 [History Confirmed 12/17/22] bupropion HCl 150 mg 24 hr tablet, extended release 150 mg PO QHS MENTAL HEALTH 11/13/17 [History Confirmed 12/17/22] peg [id number] 1 %-0.2 %-0.2 % eye drops (Dry Eye Relief) 1 drp OP 4X/DAY DRY EYES 11/13/17 [History Confirmed 12/17/22] leflunomide 20 mg tablet (Arava) 20 mg PO DAILY 03/22/18 [History Confirmed 12/17/22] amlodipine 5 mg tablet 7.5 mg PO DAILY 08/15/22 [History Confirmed 12/17/22] mometasone 50 mcg/actuation nasal spray 2 spray intranasal DAILY 08/15/22 [Hist ory Confirmed 12/17/22] promethazine 25 mg tablet 25 mg PO Q6H PRN PRN Nausea #60 tabs 11/02/22 [Rx Confirmed 12/17/22] colestipol 1 gram tablet 1 g PO BID 11/05/22 [History Confirmed 12/17/22] ergocalciferol (vitamin D2) 1,250 mcg (50,000 unit) capsule (Vitamin D2) 1,250 mcg PO QWEEK 11/05/22 [History Confirmed 12/17/22] polyethylene glycol 3350 17 gram/dose oral powder (Miralax) 4 g PO DAILY #238 grams 11/13/22 [Rx Confirmed 12/17/22] dicyclomine 20 mg tablet 20 mg PO BID #60 tabs 11/21/22 [Rx Confirmed 12/17/22] pantoprazole 40 mg tablet,delayed release 40 mg PO DAILY #90 tabs 12/05/22 [Rx Confirmed 12/17/22] mecobalamin (vitamin B12) 1,000 mcg disintegrating tablet,sublingual 1,000 mcg sublingual DAILY 12/06/22 [History Confirmed 12/17/22] abatacept 50 mg/0.4 mL subcutaneous syringe (Orencia) 50 mg subcut 12/17/22 [History Confirmed 12/17/22] [facility] Medical History Acute ethmoidal sinusitis, unspecified Acute frontal sinusitis, unspecified Acute maxillary sinusitis, unspecified Acute pharyngitis, unspecified Ambulates with cane Anemia Anxiety Arthritis Asthma Back pain Cardiology follow-up encounter Chest pain Chronic cough Chronic diastolic CHF (congestive heart failure) Congenital cataract Coronary artery stenosis Depression Difficulty swallowing OWEN (dyspnea on exertion) Dry eye Fatigue Former smoker Hip pain History of CHF (congestive heart failure) History of echocardiogram History of hiatal hernia History of IBS History of irregular heartbeat History of pain when walking History of partial replacement of left hip joint using bipolar prosthesis History of stress test HLD (hyperlipidemia) Hypertension IBS (irritable bowel syndrome) Injury of back Insomnia Intermittent palpitations Iron malabsorption Limb weakness Loose, teeth Lumbar spondylosis Lung disease Nausea Osteoarthritis Osteoporosis Post-menopausal PVCs (premature ventricular contractions) Regular astigmatism, bilateral Shortness of breath on exertion SOB (shortness of breath) TIA (transient ischemic attack) URI (upper respiratory infection) Vitamin D deficiency Wears glasses Surgical History H/O adenoidectomy H/O hernia repair H/O shoulder surgery History of cardiac catheterization History of Vanessa fundoplication History of tonsillectomy History of total left knee replacement Hx of section S/P repair of paraesophageal hernia Family History Mother Asthma Hypertension Kidney diseaseFather Asthma Myocardial infarctionDaughter Asthma Diabetes HypertensionSister Asthma Hypertension Social History Smoking Status: Former smoker quit date: 07/29/13 alcohol intake: never HPI RIGHT KNEE Details: Parts of this documentation were recorded by a scribe, this documentation accurately reflects the service provided and the decisions made by me, Dr. Michael Rawls, 12/17/22 0807. DEWEY HORTA is a 62 year old F here today for right knee pain. She was referred by Pablo Curz to discuss right TKA. She has had right knee pain for many years. She did trial steroid injections and lubricant injections but this was not effective and she didn't wish to trial this at this time. She has tried knee bracing and PT which did not help She thinks therapy caused her pain to become worse. She did have xrays and MRI of the right knee recently which are in the system to review. She did have a right knee arthroscopy about [address] Knott. She does have RA and fibromyalgia. and she is on Orencia, leflunomide and plavix. Ortho Exam General General: Yes no acute distress Neurologic: Yes alert and Yes oriented x3 Psychologic: Yes reasonable and appropriate Right Knee Skin/Wound: Yes CDI, No erythema, No ecchymosis and No swelling Homans Sign: No Knee ROM: No ROM-Extension -20 to 0 (lacking 4 ) and No ROM-Flexion 0-140 (80) Examination: Yes Med jt line tenderness and Yes TTP Pes Anserine Stability: NML: Anterior Drawer, NML: Posterior Drawer, NML: Valgus 0, NML: Valgus 30, NML: Varus 0 and NML: Varus 30 Patella Translation: 1 Patella Grind: No KNEE: 2/4 pulses Left Knee Patella Translation: 1 Head: Normocephalic Atraumatic Chest: symmetrical rise, non-labored breathing, no audible wheeze Abdomen: no guarding, non-rigid Supplemental Info 11/29/2022 MRI right knee:. Suspect a complex tear of the anterior horn of the medial meniscus. Approximately 3.5 mm of peripheral extrusion of the body segment of the medial meniscus. 2. Background of moderate tricompartmental osteoarthritic changes, worse at the medial femorotibial compartment where there are areas of full-thickness chondral loss on both sides of the articulation. Coding Level of Care Code Off vis,est,level 3 Diagnoses Right knee DJD M17.11 Rheumatoid arthritis M06.9 Fibromyalgia M79.7 Assessment and Plan Assessment and Plan (1) Right knee DJD: Status: Acute (2) Rheumatoid arthritis: Status: Acute (3) Fibromyalgia: Status: Acute Plan Patient educated that she does have moderate OA of the right knee. Treatment options are do nothing or bracing or PT or steroid injection or viscosupplementation or TKA. she feels she is ready for joint replacement. she had it on the other knee in the past and did well. She is at increased risk of infection due to her rheumatoid arthritis and corresponding medications, I did funeral pre arrangement counselor her off on this. She is at risk for continued knee pain after joint replacement secondary to her rheumatoid arthritis and fibromyalgia she understands this, she is at increased risk for postoperative knee stiffness secondary to her preoperative stiffness, and therefore I stressed the importance of pre and postoperative physical therapy. Risks, benefits and alternatives of surgery reviewed including but not limited to bleeding, infection, nerve, artery and/or tissue damage, fracture, VTE, mechanical feel of the knee, continued pain, stiffness and expected post- operative course. DIsscussed the need?She will need clearance to stop the Plavix 7 days prior to surgery and will also need to Stop the Orencia 5 weeks prior to surgery and 4 weeks post op. She will need pre-op and post op PT. She does have stairs at home but also has help at home, will schedule surgery for outpatient surgery. Discussed IOVERA and she wishes to proceed with this if approved by insurance. Follow up in 2 weeks post op or sooner if pain, swelling, numbness or associated symptoms, or concerns develop. All questions answered. Patient in agreement of plan. Tentative surgery date week of January 14 or January 21 12/17/22 1131 <Electronically signed by Michael Rawls DO> Date Michael Rawls DO Cosigner Signature: Date (if applicable) I have examined the patient and the H&P has been reviewed. There are no clinical changes since date of exam.
[2023-01-23] MEDS: TXA 1000mg in NS100 100ml (IVPB at Incision) 660 MG IV (07:45)
[2023-01-23] MEDS: dexAMETHasone 10 MG/ML Vial IV (08:10)
[2023-01-23] MEDS: Bupivacaine 0.5% PF 10 ML VIAL (09:08)
[2023-01-23] MEDS: dexAMETHasone 4 MG/ML Vial (09:08)
[2023-01-23] MEDS: Epinephrine (1 mg/ml) 1 MG/ML VIAL (09:08)
[2023-01-23] MEDS: 0.9% Normal Saline (Pres. free 10 ML Vial (09:08)
[2023-01-23] MEDS: TXA 1000mg in NS100 100ml (IVPB at Closure) 660 MG IV (09:22)
--- NOTE | 2023-01-23 10:04 | OP.PCM_ITS ---
Operative Report Date of Procedure: 01/23/23 Preoperative diagnosis: Right knee DJD Postoperative diagnosis: Same Procedure: Right total knee arthroplasty CT guided Robotic Assisted Implant: [place] triathlon press fit, femoral component size 4, tibial baseplate size 4, asymmetric patella size 35, polyethylene X3 size 9 CS Anesthesia: Spinal with adductor canal block Tourniquet time: 11 minutes at 300 mmHg Complications: None Condition: Stable to PACU Estimated blood loss: 175 cc Rand Cementer Flor chan. My physician project construction assistant manager was a vital part of this case. He was important in appropriate retraction during the case, and protection of soft tissues during procedure. His intimate knowledge of the case and my steps aided in safe and expedient completion of the procedure as well as appropriate position of the extremity during the case. He was also vital in assisting with closure under my direct supervision. Indication for procedure: This is a 62-year-old female with long standing degenerative joint disease of the knee who has failed conservative treatment and wished to proceed with elective total knee arthroplasty. Risk benefits and alternatives were reviewed including; risk of bleeding, infection, nerve artery and tissue damage, continued pain, postoperative stiffness, venous thromboembolism, need for postoperative rehabilitation, mechanical feel to the knee, and expected postoperative course. The pre- operative CT and templating was performed with component sizing. Procedure: The patient was met in the preoperative holding area. The operative extremity was identified by both patient and physician and was marked. Patient was met by anesthesia. An adductor canal block was placed by anesthesia post operatively the patient was brought back to the operating room on a wheeled cart and transferred to the operating table in the supine position. Anesthesia was started. A well-padded tourniquet was placed on the operative extremity. The patient was prepped and draped in the usual sterile fashion. A timeout was called to ensure the proper patient procedure and extremity were being contemplated. An esmarch was used to exsanguinate the extremity. The tourniquet was inflated. A 10 blade scalpel was used to make a midline incision down through the skin and subcutaneous tissue. Skin retractors placed. Bovie and Aquamantis were used to perform meticulous hemostasis. full-thickness flaps were elevated medial and lateral along the joint capsule. A deep blade scalpel was used to perform a medial parapatellar arthrotomy. The knee was brought to full extension. A bovie was used to release the soft tissues off the most proximal aspect of the medial tibial plateau, a three-quarter inch curved osteotome was also used in this process. The infrapatellar fat pad was excised. The suprapatellar fat pad was excised partially anteriorolateraly and portion the anterioromedial pad was elevated from the femur. At this point our intra- articular femoral array was placed at a 45 degree angle proximal and posterior to the medial epicondyle. femoral checkpoint was placed at this time. Our ti bial array was placed greater than 1 hands breath below the incision at a 20 degree angle stab incisions were made with a 15 blade scalpel and pins were placed and attached to the tibial array , tibial checkpoint was placed in the proximal tibial metaphysis. Tourniquet was let down. At this point registration jimenez were taken throughout the knee . Once the knee was registered we then tensioned the medial and lateral ligaments in extension and 90 degrees of flexion. We then used these numbers to adjust our components within parameters to balance the knee in both flexion and extension once this was done on our monitor we then proceeded with using the robotic arm to make our tibial plateau cut, anterior and posterior chamfer and distal femur cuts. we removed the cut fragments with the use of a bovie and Dana, we did use a lamina cable way operator to insure we visualized and removed all posterior osteophytes and at this time also used the Aquamantis on the posterior joint capsule. we then trialed and achieved the desired plan with a well-balanced knee. we used the green probe to dennis the corresponding tibial rotation based on our CT template. Lug holes were drilled in the femur the tibia preparation was completed with the appropriate sized base plate pinned based on previous rotation dennis. An appropriate sized fin punch was used on the tibia and 4 corner drill was used for the press fit component and the patella was prepared by first using a caliper to ensure sufficient bone stock and a patellar reamer to remove the desired amount of bone. lug holes drilled for an asymmetric poly. We then brought the knee through range of motion with excellent patellar tracking. We thoroughly irrigated the knee. Trial components were removed a posterior capsular injection was preformed with our standard cocktail. In addition the aqua Mantis was also used to aid in hemostasis. Betadine rinse was allowed to sit and washed out completely. Components were press-fit into place. Aricept rinse was then used followed by several more liters of irrigation after it was allowed to sit. The joint capsule was closed with #1 Ethibond [id number] followed by Vicryl in the subcutaneous tissues with dale in the skin. Arrays and checkpoints were removed prior to closure all counts were correct stab incisions were closed with a staple standard dressing in the form of Mepilex AG for the main incision and a small Mepilex over the pin holes. Thigh-high ANETTE hose applied over top of dressing. Patient tolerated the procedure well and was directed to PACU in stable condition . There were no intraoperative complications.
--- NOTE | 2023-01-23 10:22 | RAD_ITS ---
STUDY: X-RAY - RIGHT KNEE REASON FOR EXAM: Female, 62 years old. Post op -- AP and Lateral xray of operative knee in PACU TECHNIQUE: 2 view(s) of the knee. COMPARISON: Comparison is made with prior study dated August 15, 2022. FINDINGS: Normal visualized distal femur. Normal visualized proximal tibia and fibula. Normal proximal tibiofibular articulation. The patient is status post right total knee replacement. There is good alignment. Postoperative soft tissue changes. RAD/Knee 1 or 2 Views IMPRESSION: Status post total knee replacement. There is good alignment. Postoperative soft tissue changes. Electronically Signed: Juan Antonio Becerra MD at 10:50 EDT ,
[2023-01-23] MEDS: Ondansetron 4 MG/2 ML Vial IV (13:21)
[2023-01-23] MEDS: 0.9% Saline Lock 10 ML Syringe IV (13:21)
[2023-01-23] MEDS: Cefazolin 1 GM/50 ML BAG IV ×2 (13:21→20:07)
[2023-01-23] MEDS: oxyCODONE 5 MG Tablet PO ×3 (13:22→23:02)
[2023-01-23] MEDS: 0.9% Normal Saline 1,000 ML 125 ML IV ×2 (13:36→22:45)
[2023-01-23] MEDS: Dicyclomine 10 MG Capsule 20 MG PO (18:13)
[2023-01-23] MEDS: FLUoxetine 20 MG Capsule 60 MG PO (22:48)
[2023-01-23] MEDS: Senna/Docusate Sodium 1 Tablet 2 TABLET PO (22:49)
[2023-01-23] MEDS: buPROPion (XL) 150 MG TABLET.XL PO (22:53)
[2023-01-23] MEDS: Atorvastatin Calcium 20 MG Tablet PO (22:53)
[2023-01-24 00:13] VITALS: BP 141/55; PULSE 77; RESP 16; TEMP 36.4; O2SAT 93
[2023-01-24] MEDS: Cefazolin 1 GM/50 ML BAG IV (04:23)
[2023-01-24 04:25] VITALS: BP 103/53; PULSE 74; RESP 16; TEMP 36.6; O2SAT 93
[2023-01-24 05:00] VITALS: BP 110/66
[2023-01-24] MEDS: Dicyclomine 10 MG Capsule 20 MG PO (06:11)
[2023-01-24] MEDS: Acetaminophen 500 MG Tablet 1000 MG PO (06:11)
[2023-01-24] MEDS: oxyCODONE 5 MG Tablet PO ×2 (06:12→12:03)
[2023-01-24 06:13] LABS: Hematocrit 30.6 % (37-47); Hemoglobin 9.5 g/dL (12.0-15.0); Mean Corpuscular Hgb 27.9 pg (27.0-32.0); Mean Platelet Vol. 11.4 fl (6.2-12.0); Platelet Count 199 K/mm3 (150-450); RBC Distribution Width CV 12.6 % (11.6-14.6); RBC Distribution Width SD 41.4 fl (35.1-43.9); White Blood Count 11.2 K/mm3 (4.4-11.0)
[2023-01-24] MEDS: APIXABAN 2.5 MG TABLET (WCH) PO (06:19)
[2023-01-24] MEDS: 0.9% Normal Saline 1,000 ML 125 ML IV (06:22)
[2023-01-24 06:39] LABS: Anion Gap 3 (5-15); BUN 9 mg/dL (7-18); BUN/Creat Ratio 12.1 RATIO (10-20); Calcium,Total 7.8 mg/dL (8.5-10.1); Chloride 109 mmol/L (98-107); Creatinine, Serum 0.74 mg/dL (0.55-1.02); EST Glomerular Filtration Rate 84 mL/min (>60); Est Glom Filt Rate - Afr Amer 101 mL/min (>60); Estimated Creatinine Clearance 61.54 ml/min; Glucose 138 mg/dL (74-106); Potassium 4.3 mmol/L (3.5-5.1); Sodium Level 135 mmol/L (136-145)
[2023-01-24 07:07] VITALS: BP 119/65
[2023-01-24] MEDS: proMETHazine 25 MG/ML Syringe 12.5 MG IM (08:10)
--- NOTE | 2023-01-24 08:37 | PCM.PN.ORT ---
Subjective Subjective Seen and examined. Doing well. Requesting to go home. She states she has no complaints no concerns and she is ambulating well. Objective Data Objective Data Vital Signs: Vital Signs Temp Pulse Resp BP Pulse Ox O2 Del Method O2 Flow Rate 97.9 F 74 16 119/65 93 Room Air 4 01/24/23 04:25 01/24/23 04:25 01/24/23 04:25 01/24/23 07:07 01/24/23 04:25 01/24/23 04:25 01/23/23 11:15 Oxygen Flow Rate (L/min) 4 Oxygen Delivery Method Room Air Weight: 194 lb 0.108 oz Body Mass Index (BMI) 34.3 Intake & Output: Intake and Output for Last 24 Hours 01/22/23 01/23/23 01/24/23 23:59 23:59 23:59 Intake Total 2856.5 / 3156.5 1741.66 / 1741.66 Balance 2856.5 / 3156.5 1741.66 / 1741.66 Lab / Micro Data 01/24/23 05:55 01/24/23 05:55 Labs: Laboratory Results - last 24 hr 01/24/23 05:55: WBC 11.2 H, RBC 3.40 L, Hgb 9.5 L, Hct 30.6 L, MCV 90.0, MCH 27.9, MCHC 31.0 L, RDW Std Deviation 41.4, RDW Coeff of Pepe 12.6, Plt Count 199, MPV 11.4, Sodium 135 L, Potassium 4.3, Chloride 109 H, Carbon Dioxide 23.0, Anion Gap 3 L, BUN 9, Creatinine 0.74, Estim Creat Clear Calc 61.54, Est GFR (MDRD) Af Amer 101, Est GFR (MDRD) Non-Af 84, BUN/Creatinine Ratio 12.1, Glucose 138 H, Calcium 7.8 L Micro: Microbiology 01/11/23 15:06 Swab (Method) Nasal Screen MRSA/MSSA - Final Radiography Diagnostic Testing: Radiology Impression Knee X-Ray 01/23/23 10:22 IMPRESSION: Status post total knee replacement. There is good alignment. Postoperative soft tissue changes. Electronically Signed: Juan Antonio Becerra MD at 10:50 EDT , Physical Exam Extremity Extremity Narrative: Right knee dressing clean dry intact compartment soft neurovascular intact EHL tibialis anterior gastrocsoleus intact sensation light touch 2 out of 4 pedal pulse Assessment & Plan Assessment/Plan (1) S/P total knee arthroplasty: QUALIFIERS: Laterality: right Qualified Code(s): Z96.651 - Presence of right artificial knee joint PLAN: Postop day #1 right total knee arthroplasty. PT OT weightbearing as tolerated DVT prophylaxis Oxycodone Requesting to be discharged home she is doing very well and I will see any reason why not Discharge after a.m. physical therapy Follow-up in the office 2 weeks outpatient therapy already scheduled
--- NOTE | 2023-01-24 08:39 | PCM.DC ---
Discharge Instructions Diet Discharge Diet: No restrictions Dressing / Incision Call your doctor if you observe: Shortness of breath and Chest pain Additional Dressing/Incision Instructions:: Ice and elevate lower extremities 2 weeks while not ambulating. Ambulation is encouraged. Weight bearing as tolerated. Use assistive devise for stability. Encourage FULL knee extension and flexion 1 time EVERY time you get up and down and MULTIPLE times per day. No showering 72 hours after surgery. Begin showering postop day #3. Remove the dressing prior to shower and gently wash with warm water and antibacterial soap then pat dry and place abdominal pad (or plain gauze) and ANETTE hose over top. This is to be done daily. Do not submerge for 3 weeks. If not showering daily after the initial 72 hours then you must clean incision and change dressing daily. Do not allow animals near the incision area. Keep clean. Follow anti-coagulation recommendations as prescribed. Do not take any NSAIDs while on blood thinner. May resume Plavix after completion of Eliquis the blood thinner. Do not take any additional narcotic pain medication other than what was prescribed on your surgery day without discussing with physician. Narcotic medication can be addictive. Do not drink alcohol while taking narcotics. Supplement narcotic prescription with acetaminophen 1000 mg 4 times a day. Start physical therapy. If you are not currently scheduled for physical therapy or you are unsure of appointment time please call office [facility] to arrange. Call Dr. Rawls with any concerns. Follow Up Care Please Follow Up With: Michael Rawls DO When: 2 weeks Test Results: Test results from this visit will be discussed in further detail at your follow-up appointment, if applicable. Discharge Plan Admission Admit Date/Time: 01/23/23 05:17 Primary Reason for Your Visit: Right total knee arthroplasty Attending Provider: Michael Rawls Primary Care Provider: Ciara Dhillon NP Discharge Orders/Prescriptions Prescriptions: New acetaminophen 500 mg Tablet 1,000 mg PO Q6H Qty: 100 0RF oxycodone 5 mg Tablet 5 - 10 mg PO Q4H PRN PRN (Reason: Pain Score 4-10) 7 Days Qty: 60 0RF cephalexin 500 mg capsule 500 mg PO TID Qty: 21 0RF Eliquis 2.5 mg tablet 2.5 mg PO BID Qty: 30 0RF Continued mometasone 50 mcg/actuation spray,non-aerosol 2 spray intranasal DAILY Rx Instructions: administer into each nostril amlodipine 5 mg tablet 7.5 mg PO DAILY mecobalamin (vitamin B12) 1,000 mcg tablet,disintegrating 1,000 mcg sublingual DAILY Rx Instructions: place tablet under tongue and allow to dissolve for at least30 secs before swallowing simvastatin 20 MG tablet 40 mg PO QHS Patient Comments: CHOLESTEROL LOWERING albuterol sulfate 1 INHALER inhaler 2 puff INHALATION Q4H PRN PRN (Reason: Shortness Of Breath) Patient Comments: BREATING fluoxetine 20 MG capsule 60 mg PO QHS Patient Comments: ANXIETY Dry Eye Relief 15 ML drops 1 drp OP 4X/DAY bupropion HCl 150 MG tablet extended release 24 hr 150 mg PO QHS ergocalciferol (vitamin D2) [Vitamin D2] 1,250 mcg (50,000 unit) Capsule 1,250 mcg PO WE colestipol 1 gram tablet 1 g PO PRN PRN (Reason: Diarrhea) Rx Instructions: avoid other meds one hour before and 4 hours after dicyclomine 20 mg tablet 20 mg PO BID pantoprazole 40 mg tablet,delayed release (DR/EC) 40 mg PO DAILY polyethylene glycol 3350 [Miralax] 17 gram/dose powder 4 g PO PRN PRN (Reason: Constipation) promethazine 25 mg tablet 25 mg PO Q6H PRN PRN (Reason: Nausea) Qty: 60 2RF Held Orencia 50 mg/0.4 mL syringe 50 mg subcut QMONTH Hold Instructions: Resume on 02/23/23. clopidogrel 75 MG tablet 75 mg PO DAILY Hold Instructions: Resume on 02/08/23. Resume day after completion of Eliquis Patient Comments: BLOOD THINNER leflunomide [Arava] 20 tablet 20 mg PO DAILY Hold Instructions: Resume on 02/06/23. Patient Comments: No Action acetaminophen [Tylenol] 325 mg tablet 500 mg PO Q6H PRN (Reason: Pain) Referrals / Follow Up: Ciara Dhillon NP, DIRECTOR OF FIELD COORDINATION-C [Primary Care Provider] -
--- NOTE | 2023-01-24 08:55 | PCM.DC.SUM ---
Providers Date of Admission: 01/23/23 Primary Care Physician: STEFANO ArriolaC Reason For Visit: RT TOTAL KNEE W ZANE Diagnosis Discharge Diagnosis (1) S/P total knee arthroplasty: Status: Acute Code(s): Z96.659 - Presence of unspecified artificial knee joint Qualifiers: Laterality: right Qualified Code(s): Z96.651 - Presence of right artificial knee joint Plan: Postop day #1 right total knee arthroplasty. PT OT weightbearing as tolerated DVT prophylaxis Oxycodone Requesting to be discharged home she is doing very well and I will see any reason why not Discharge after a.m. physical therapy Follow-up in the office 2 weeks outpatient therapy already scheduled Medications at Discharge Home Medications albuterol sulfate 90 mcg/actuation aerosol inhaler 2 puff inhalation Q4H PRN PRN Shortness Of Breath 03/13/15 clopidogrel 75 mg tablet 75 mg PO DAILY BLOOD THINNER 03/13/15 simvastatin 20 mg tablet 40 mg PO QHS CHOLESTEROL 03/13/15 fluoxetine 20 mg capsule 60 mg PO QHS MENTAL HEALTH 12/13/15 acetaminophen 325 mg tablet (Tylenol) 500 mg PO Q6H PRN Pain 07/12/17 bupropion HCl 150 mg 24 hr tablet, extended release 150 mg PO QHS MENTAL HEALTH 11/13/17 peg [id number] 1 %-0.2 %-0.2 % eye drops (Dry Eye Relief) 1 drp OP 4X/DAY DRY EYES 11/13/17 leflunomide 20 mg tablet (Arava) 20 mg PO DAILY RA 03/22/18 amlodipine 5 mg tablet 7.5 mg PO DAILY BP 08/15/22 mometasone 50 mcg/actuation nasal spray 2 spray intranasal DAILY ALLERGIES 08/15/22 colestipol 1 gram tablet 1 g PO PRN PRN Diarrhea 11/05/22 ergocalciferol (vitamin D2) 1,250 mcg (50,000 unit) capsule (Vitamin D2) 1,250 mcg PO WE SUPPELEMNT 11/05/22 mecobalamin (vitamin B12) 1,000 mcg disintegrating tablet,sublingual 1,000 mcg sublingual DAILY SUPPLEMENT 12/06/22 abatacept 50 mg/0.4 mL subcutaneous syringe (Orencia) 50 mg subcut QMONTH RA 12/17/22 promethazine 25 mg tablet 25 mg PO Q6H PRN PRN Nausea #60 tabs 12/25/22 dicyclomine 20 mg tablet 20 mg PO BID IBS 01/09/23 pantoprazole 40 mg tablet,delayed release 40 mg PO DAILY GERD 01/09/23 polyethylene glycol 3350 17 gram/dose oral powder (Miralax) 4 g PO PRN PRN Constipation 01/09/23 acetaminophen 500 mg tablet 1,000 mg (2 x 500 mg) PO Q6H #100 tabs 01/24/23 apixaban 2.5 mg tablet (Eliquis) 2.5 mg PO BID #30 tabs 01/24/23 cephalexin 500 mg capsule 500 mg PO TID #21 caps 01/24/23 oxycodone 5 mg tablet 5 - 10 mg (1 - 2 x 5 mg) PO Q4H PRN PRN Pain Score 4-10 7 days #60 tabs 01/24/23 Hospital Course Operations total knee replacement Summary of Care Provided Hospital Course: The patient has with long-standing history of knee DJD and has failed conservative treatment. Patient wished to undergo elective robotic assisted total knee arthroplasty and underwent the aforementioned procedure on the admission date without complications. patient did receive pre-and postoperative antibiotics which were discontinued within 23 hours postoperatively. patient did receive a spinal anesthesia and a adductor canal block and the pain was controlled postoperatively with p.o. and IV pain medication. There was minimal intraoperative blood loss he did receive 2 g of tranexamic acid and his vital signs and labs were stable postoperatively and patient did not require a blood transfusion. patient was seen by physical therapy and did progress with his ambulation. Postoperatively was started on both mechanical and chemical DVT prophylaxis for which patient will continue Eliquis 2.5 mg twice daily for 2 additional weeks post hospital discharge she will resume her Plavix after completion of her Eliquis. 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 Mepilex AG dressing will stay on for 72 hours postoperatively at which time patient will begin showering on postop day #3 with daily dressing changes. Encouraged patient to achieve full range of motion as soon as possible, Patient will start outpatient physical therapy and will follow-up in the office in 2 weeks for wound check. There is no intrahospital complications . Weight / BMI Weight Weight: 194 lb 0.108 oz Body Mass Index (BMI) 34.3 ABG / Lab / Microbiology Data 01/24/23 05:55 01/24/23 05:55 Laboratory: Laboratory Results - last 24 hr 01/24/23 05:55: WBC 11.2 H, RBC 3.40 L, Hgb 9.5 L, Hct 30.6 L, MCV 90.0, MCH 27.9, MCHC 31.0 L, RDW Std Deviation 41.4, RDW Coeff of Pepe 12.6, Plt Count 199, MPV 11.4, Sodium 135 L, Potassium 4.3, Chloride 109 H, Carbon Dioxide 23.0, Anion Gap 3 L, BUN 9, Creatinine 0.74, Estim Creat Clear Calc 61.54, Est GFR (MDRD) Af Amer 101, Est GFR (MDRD) Non-Af 84, BUN/Creatinine Ratio 12.1, Glucose 138 H, Calcium 7.8 L Microbiology: Microbiology 01/11/23 15:06 Swab (Method) Nasal Screen MRSA/MSSA - Final Radiography Diagnostic Testing: Radiology Impression Knee X-Ray 01/23/23 10:22 IMPRESSION: Status post total knee replacement. There is good alignment. Postoperative soft tissue changes. Electronically Signed: Juan Antonio Becerra MD at 10:50 EDT , D/C Instructions Discharge Diet: No restrictions Call your doctor if you observe: Shortness of breath and Chest pain Additional Dressing/Incision Instructions: Ice and elevate lower extremities 2 weeks while not ambulating. Ambulation is encouraged. Weight bearing as tolerated. Use assistive devise for stability. Encourage FULL knee extension and flexion 1 time EVERY time you get up and down and MULTIPLE times per day. No showering 72 hours after surgery. Begin showering postop day #3. Remove the dressing prior to shower and gently wash with warm water and antibacterial soap then pat dry and place abdominal pad (or plain gauze) and ANETTE hose over top. This is to be done daily. Do not submerge for 3 weeks. If not showering daily after the initial 72 hours then you must clean incision and change dressing daily. Do not allow animals near the incision area. Keep clean. Follow anti-coagulation recommendations as prescribed. Do not take any NSAIDs while on blood thinner. May resume Plavix after completion of Eliquis the blood thinner. Do not take any additional narcotic pain medication other than what was prescribed on your surgery day without discussing with physician. Narcotic medication can be addictive. Do not drink alcohol while taking narcotics. Supplement narcotic prescription with acetaminophen 1000 mg 4 times a day. Start physical therapy. If you are not currently scheduled for physical therapy or you are unsure of appointment time please call office [facility] to arrange. Call Dr. Rawls with any concerns. Please Follow Up With: Michael Rawls DO When: 2 weeks Meaningful Use Info Meaningful Use Diagnoses (Choose all that apply): None applicable Discharge Plan Admission Admit Date/Time: 01/23/23 05:17 Primary Reason for Your Visit: Right total knee arthroplasty Attending Provider: Michael Rawls Primary Care Provider: Ciara Dhillon NP Discharge Orders/Prescriptions Prescriptions: New acetaminophen 500 mg Tablet 1,000 mg PO Q6H Qty: 100 0RF oxycodone 5 mg Tablet 5 - 10 mg PO Q4H PRN PRN (Reason: Pain Score 4-10) 7 Days Qty: 60 0RF cephalexin 500 mg capsule 500 mg PO TID Qty: 21 0RF Eliquis 2.5 mg tablet 2.5 mg PO BID Qty: 30 0RF Continued mometasone 50 mcg/actuation spray,non-aerosol 2 spray intranasal DAILY Rx Instructions: administer into each nostril amlodipine 5 mg tablet 7.5 mg PO DAILY mecobalamin (vitamin B12) 1,000 mcg tablet,disintegrating 1,000 mcg sublingual DAILY Rx Instructions: place tablet under tongue and allow to dissolve for at least30 secs before swallowing simvastatin 20 MG tablet 40 mg PO QHS Patient Comments: CHOLESTEROL LOWERING albuterol sulfate 1 INHALER inhaler 2 puff INHALATION Q4H PRN PRN (Reason: Shortness Of Breath) Patient Comments: BREATING fluoxetine 20 MG capsule 60 mg PO QHS Patient Comments: ANXIETY Dry Eye Relief 15 ML drops 1 drp OP 4X/DAY bupropion HCl 150 MG tablet extended release 24 hr 150 mg PO QHS ergocalciferol (vitamin D2) [Vitamin D2] 1,250 mcg (50,000 unit) Capsule 1,250 mcg PO WE colestipol 1 gram tablet 1 g PO PRN PRN (Reason: Diarrhea) Rx Instructions: avoid other meds one hour before and 4 hours after dicyclomine 20 mg tablet 20 mg PO BID pantoprazole 40 mg tablet,delayed release (DR/EC) 40 mg PO DAILY polyethylene glycol 3350 [Miralax] 17 gram/dose powder 4 g PO PRN PRN (Reason: Constipation) promethazine 25 mg tablet 25 mg PO Q6H PRN PRN (Reason: Nausea) Qty: 60 2RF Held Orencia 50 mg/0.4 mL syringe 50 mg subcut QMONTH Hold Instructions: Resume on 02/23/23. clopidogrel 75 MG tablet 75 mg PO DAILY Hold Instructions: Resume on 02/08/23. Resume day after completion of Eliquis Patient Comments: BLOOD THINNER leflunomide [Arava] 20 tablet 20 mg PO DAILY Hold Instructions: Resume on 02/06/23. Patient Comments: No Action acetaminophen [Tylenol] 325 mg tablet 500 mg PO Q6H PRN (Reason: Pain) Referrals / Follow Up: Ciara Dhillon NP, RAIL FILLER-C [Primary Care Provider] -
[2023-01-24 08:57] VITALS: BP 125/41; PULSE 84; RESP 18; TEMP 36.9; O2SAT 94
[2023-01-24] MEDS: Senna/Docusate Sodium 1 Tablet 2 TABLET PO (08:59)
[2023-01-24] MEDS: Pantoprazole Sodium 40 MG Tablet PO (08:59)
[2023-01-24] MEDS: amLODIPine 2.5 MG Tablet 7.5 MG PO (08:59)
--- NOTE | 2023-01-24 09:20 | CASEMGMT ---
BOB ZIEGLER Assessment: Face to Face with pt for initial transition planning/care coordination assessment. BOB ZIEGLER introduced self and role at [facility], pt voices understanding and consents to assessment. Pt is A/O x4 and answers all questions appropriately at this time. Pt sitting up in chair in no distress. Care providers, pharmacy, and demographics verified/updated. Admitting Dx: R total knee with zuleyka PCP:Ciara Dhillon NP Specialists:[facility], ortho; Melania, neuro; Ben, cardio; Hendrickson, rheum Preferred Pharmacy: [facility] Retail- TC to [place], cost of eliquis is $0. Insurance: [facility] Dual, [facility] Prescription Benefit: yes LNOK: Janis Borjas, piperr; piper Hernandezr Living Arrangements: Pt lives with dtr Marzena and 2 grandchildren in a ground level apt with 1 step to enter. Pt reports she was I in ADL's prior to surgery and her family can assist her post surgery. Pt denies concerns at home. Transportation: Pt drives self and denies concerns with transportation. Pt states her family will transport her to medical appts until she can drive again. DME/HHC/SNF: Pt has a cane, FWW, walk in shower and BSC at home. [facility] and denies SNF stays. Pt states no concerns with going home at time of dc. She has outpt therapy set up at [facility] to start on Saturday. Pt states no further concerns/needs. CM to follow. Advised pt to ask CM if any further question/concerns/needs arise, voices understanding. Pt Goal: Home with outpt therapy already set up Plan: Home with outpt therapy already set up
[2023-01-24 10:01] VITALS: O2SAT 96
== END 2023-01-24 13:00 | disposition home or self-care (01) | DRG 470 ==
LOC: ACINP 07:42 → MS3 12:48
PROVIDERS: Anesthesiology; Admitting Provider Orthopaedic Surgery; PCP Nurse Practitioner Family; Referring Provider Orthopaedic Surgery; Visit Provider Orthopaedic Surgery
PROC: 0SRC0JZ Replacement of Right Knee Joint with Synthetic Substitute, Open Approach (ICD-10-PCS; CPT 27447; principal; 2023-01-23 07:00)
DX: M17.11 Unilateral primary osteoarthritis, right knee (principal); I50.32 Chronic diastolic (congestive) heart failure; I11.0 Hypertensive heart disease with heart failure; E55.9 Vitamin D deficiency, unspecified; J44.9 Chronic obstructive pulmonary disease, unspecified; M06.9 Rheumatoid arthritis, unspecified; E78.5 Hyperlipidemia, unspecified; M79.7 Fibromyalgia; I25.10 Atherosclerotic heart disease of native coronary artery without angina pectoris; F32.A Depression, unspecified; K58.0 Irritable bowel syndrome with diarrhea; F41.9 Anxiety disorder, unspecified; Z22.322 Carrier or suspected carrier of Methicillin resistant Staphylococcus aureus; Z96.652 Presence of left artificial knee joint; Z79.02 Long term (current) use of antithrombotics/antiplatelets; Z79.899 Other long term (current) drug therapy; Z86.73 Personal history of transient ischemic attack (TIA), and cerebral infarction without residual deficits; Z87.891 Personal history of nicotine dependence
CPT/HCPCS: 36415; 73560; 80048; 82985; 83036; 83735; 85027; 85610; 85730; 86850; 86900; 86901; 87077; 87081; 88305; 88311; 94668; 94762; 97110; 97116; 97162; 97166; 97530; 97535; 99252; C1776; J7030; J7050; J7120; A4216; G0463; J2405; J3490

== ENCOUNTER → 2023-07-05 | Outpatient (CLI) | payer MEDICARE, MEDICAID, SELFPAY ==
[2023-07-05 10:59] LABS: Platelet Count 301 K/mm3 (150-450); RET-HE 31.7 pg (30-35); Reticulocyte Count 1.61 % (0.5-1.5)
[2023-07-05 11:41] LABS: CRP < 2.90 mg/L (0.0-3.0); Ferritin 63 ng/mL (8-252); Iron 46 ug/dL (50-170); Iron Binding Capacity,Total 311 ug/dL (250-450); PERCENT IRON SATURATION 14.8 % (15.0-55.0)
[2023-07-10 05:07] LABS: Beef <0.10 kU/L (Class 0); Chocolate <0.10 kU/L (Class 0); Codfish <0.10 kU/L (Class 0); Corn <0.10 kU/L (Class 0); Egg, Whole <0.10 kU/L (Class 0); Milk (Cow) <0.10 kU/L (Class 0); Mussels <0.10 kU/L (Class 0); Peanut <0.10 kU/L (Class 0); Pork <0.10 kU/L (Class 0); Salmon <0.10 kU/L (Class 0); Shrimp <0.10 kU/L (Class 0); Soybean <0.10 kU/L (Class 0); Tuna <0.10 kU/L (Class 0); Wheat <0.10 kU/L (Class 0)
[2023-07-10 14:09] LABS: HEPATITIS B SURFACE AG Negative (Negative); Hep C Antibodies Non Reactive (Non Reactive); Hepatitis A IgM Antibody Negative (Negative); Hepatitis B Core AB IgM Negative (Negative); Immunoglobulin A 106 mg/dL (87-352); Immunoglobulin E 10 IU/mL (6-495); Immunoglobulin G 967 mg/dL (586-1602); Immunoglobulin M 54 mg/dL (26-217)
== END | disposition home or self-care (01) ==
LOC: LAB 10:36
PROVIDERS: PCP Nurse Practitioner Family; Referring Provider Internal Medicine Gastroenterology; Visit Provider Internal Medicine Gastroenterology
DX: D64.9 Anemia, unspecified (principal); R19.7 Diarrhea, unspecified; R10.9 Unspecified abdominal pain
CPT/HCPCS: 36415; 80074; 82728; 82784; 82785; 83540; 83550; 85045; 86003; 86005; 86140; 86480

== ENCOUNTER → 2023-07-25 | Outpatient (CLI) | payer MEDICARE, MEDICAID, SELFPAY ==
--- NOTE | 2023-07-25 11:31 | MRI_ITS ---
MR Enterography Abdomen/Pelvis WO/W Contrast 07/25/2023 1:08 PM COMPARISON: None available. CLINICAL HISTORY: R19.7 - Diarrhea, unspecified, EVAL FOR CROHNS, BEST POSSIBLE PATIENT FELT ILL AFTER GLUC TECHNIQUE: Following oral administration of enteric contrast and administration of glucagon, multiplanar T1 and T2 weighted images along with dynamic post-gadolinium images were obtained through the abdomen and pelvis. 17 cc of IV Clariscan was used. FINDINGS: GI Tract: A few proximal small bowel loops demonstrate mild circumferential wall thickening and mild mucosal hyperenhancement. No stricture, fistula, or obstruction. No drainable fluid collections. Liver: Unremarkable Gallbladder: Unremarkable Spleen: Unremarkable Pancreas: Unremarkable Adrenal Glands: Unremarkable Kidneys: Unremarkable Reproductive: Unremarkable Bladder: Unremarkable Lymphadenopathy: Absent Ascites: Absent Bones: No suspicious lesions MRI/Enterography Abd/Pel IMPRESSION: Limited examination due to no axial postcontrast images. Despite limitations: Findings may represent infectious versus inflammatory enteritis. No stricture, fistula, or obstruction. No drainable fluid collections. Electronically Signed: Mendoza Andersno MD at 17:19 EST ,
[2023-07-25 12:14] VITALS: BP 156/53; PULSE 75; RESP 16; O2SAT 98; BMI 32.8
[2023-07-25 12:23] LABS: CREATININE FINGERSTICK < 1.0 mg/dL (0.55-1.02); EGFR FINGERSTICK > 60.0000 mL/min (>60)
[2023-07-25] MEDS: Glucagon 1 MG/ML Syringe IV (13:30)
[2023-07-25 13:54] VITALS: BP 145/66; PULSE 84; RESP 16; O2SAT 98
== END | disposition home or self-care (01) ==
LOC: MRI 11:29
PROVIDERS: PCP Nurse Practitioner Family; Referring Provider Internal Medicine Gastroenterology; Visit Provider Internal Medicine Gastroenterology
DX: R19.7 Diarrhea, unspecified (principal)
CPT/HCPCS: 74183; 96374; A9575; J1610

== ENCOUNTER → 2023-09-06 | Outpatient (CLI) | payer MEDICARE, MEDICAID, SELFPAY ==
[2023-09-10 00:06] LABS: Calprotectin, Stool 81 ug/g (0-120)
[2023-09-12 21:07] LABS: Giardia Lamblia, Stool EIA Negative (Negative); Pancreatic Elastase, Fecal 76 (>200)
== END | disposition home or self-care (01) ==
PROVIDERS: PCP Nurse Practitioner Family; Referring Provider Internal Medicine Gastroenterology; Visit Provider Internal Medicine Gastroenterology
DX: R19.7 Diarrhea, unspecified (principal); K58.9 Irritable bowel syndrome, unspecified
CPT/HCPCS: 82653; 83630; 83993; 87177; 87209; 87329; 87493; 87506

== ENCOUNTER 2023-10-19 15:16 | Emergency (ER) | payer MEDICARE, SELFPAY ==
[2023-10-19 15:17] VITALS: BP 152/72; PULSE 79; RESP 16; TEMP 36.3; O2SAT 97; BMI 36.1
--- NOTE | 2023-10-19 16:05 | CT_ITS ---
STUDY: CT BRAIN WITHOUT CONTRAST REASON FOR EXAM: Female, 63 years old. Head trauma on antithrombotic RADIATION DOSAGE (If Supplied By Facility): CTDIvol = ( 44.99 ) mGy, DLP = ( 812.98 ) mGycm TECHNIQUE: Transaxial CT imaging of the brain was performed without administration of intravenous contrast material. Individualized dose optimization techniques were used for this CT. COMPARISON: Report of head CT 05/06/2012 FINDINGS: Normal soft tissue structures. Normal calvarium. Normal size ventricles and extra-axial spaces for the patient''s age. Normal white matter tracts of the cerebral hemispheres. Normal basal ganglia and thalami. Normal brainstem. Normal cerebellum. There is no intracranial hemorrhage. There are no findings of an acute ischemic infarction. Normal visualized paranasal sinuses. CT/Brain/Head without Contrast IMPRESSION: No acute intracranial hemorrhage or mass effect. Electronically Signed: Augusto Lundberg MD ([place]) at 17:59 EDT Reading Location ID and State: [facility] / [place] , Service support ,
--- NOTE | 2023-10-19 16:14 | EX.ED.GENINJ ---
HPI History of Present Illness Chief Complaint: Head Injury Detail of Chief Complaint: Fall with head and right rib trauma Informant: patient Onset/Context/Timing Onset: Hours (Approximately 2 hours ago) Mechanism/Context: Blunt Injury and Fall Location of pain/injuries: - (Right rib cage) Quality of Pain: - (Abrasion over right brow) Location: Right sixth through eighth rib Current Severity: Mild Maximum Severity: Moderate Worsened by: Movement and breathing Relieved by: Nothing Associated Symptoms Associated Symptoms: Positive for Loss of consciousness; Negative for Parasthesias, Weakness, Loss of function, Inability to ambulate or Amnesia Length of loss of consciousness: Transient Narrative Narrative: patient is a 63-year-old woman on Plavix who was walking parking lot. She fell. She landed hitting her head above her right brow and right rib cage. She reports pain with movement right ribs. She is not amnestic. She denies ringing or ears decreased hearing. Denies dental trauma. She denies neck pain. She denies paresthesia, anesthesia medics. Denies trouble with speech or swallowing. She denies nausea or vomiting. She does report significant headache. She denies abdominal pain, black or maroon-colored stool. She does report bruising easily. She denies hematuria. Prior similar symptoms: No Recent Illness/Hospitalization: No PFSH PFS Medical History Acute bacterial conjunctivitis Acute bronchitis Acute ethmoidal sinusitis, unspecified Acute frontal sinusitis, unspecified Acute maxillary sinusitis, unspecified Acute pharyngitis, unspecified Ambulates with cane Anemia Anxiety Arthritis Asthma Back pain Cardiology follow-up encounter Chronic cough Chronic diastolic CHF (congestive heart failure) Congenital cataract Contact with or suspected exposure to other viral communicable disease COPD exacerbation Coronary artery stenosis Depression Difficulty swallowing Dry eye Fatigue Foreign body in conjunctival sac, left eye, initial encounter Former smoker Hip pain History of CHF (congestive heart failure) History of echocardiogram History of hiatal hernia History of IBS History of irregular heartbeat History of pain when walking History of partial replacement of left hip joint using bipolar prosthesis History of stress test HLD (hyperlipidemia) Hypertension Influenza A Injury of back Insomnia Intermittent palpitations Internal derangement of right knee Iron malabsorption Limb weakness Lumbar spondylosis Lung disease Nausea Osteoarthritis Osteoporosis Post-menopausal Psoriasis Psoriatic arthritis PVCs (premature ventricular contractions) Regular astigmatism, bilateral Shortness of breath on exertion TIA (transient ischemic attack) URI (upper respiratory infection) Vitamin D deficiency Wears glasses Home Medications albuterol sulfate 90 mcg/actuation aerosol inhaler 2 puff inhalation Q4H PRN PRN Shortness Of Breath 03/13/15 [History Last Taken Unknown] clopidogrel 75 mg tablet 75 mg PO DAILY BLOOD THINNER 03/13/15 [History Last Taken 11/02/22] simvastatin 20 mg tablet 40 mg PO QHS CHOLESTEROL 03/13/15 [History Last Taken 11/12/17] fluoxetine 20 mg capsule 60 mg PO QHS MENTAL HEALTH 12/13/15 [History Last Taken 11/12/17] bupropion HCl 150 mg 24 hr tablet, extended release 150 mg PO QHS MENTAL HEALTH 11/13/17 [History Last Taken 11/12/17] peg [id number] 1 %-0.2 %-0.2 % eye drops (Dry Eye Relief) 1 drp OP 4X/DAY DRY EYES 11/13/17 [History Last Taken 11/12/17] leflunomide 20 mg tablet (Arava) 20 mg PO DAILY RA 03/22/18 [History Last Taken Unknown] amlodipine 5 mg tablet 7.5 mg PO DAILY BP 08/15/22 [History Last Taken 11/06/22 09:45] mometasone 50 mcg/actuation nasal spray 2 spray intranasal DAILY ALLERGIES 08/15/22 [History Last Taken Unknown] colestipol 1 gram tablet 1 g PO PRN PRN Diarrhea 11/05/22 [History Last Taken Unknown] ergocalciferol (vitamin D2) 1,250 mcg (50,000 unit) capsule (Vitamin D2) 1,250 mcg PO WE SUPPELEMNT 11/05/22 [History Last Taken Unknown] mecobalamin (vitamin B12) 1,000 mcg disintegrating tablet,sublingual 1,000 mcg sublingual DAILY SUPPLEMENT 12/06/22 [History Last Taken Unknown] abatacept 50 mg/0.4 mL subcutaneous syringe (Orencia) 50 mg subcut QMONTH RA 12/17/22 [History Last Taken Unknown] polyethylene glycol 3350 17 gram/dose oral powder (Miralax) 4 g PO PRN PRN Constipation 01/09/23 [History Last Taken Unknown] acetaminophen 500 mg tablet 1,000 mg (2 x 500 mg) PO Q6H #100 tabs 01/24/23 [Rx Last Taken Unknown] budesonide 3 mg capsule,delayed,extended release 6 mg (2 x 3 mg) PO DAILY 30 days #60 ea 07/05/23 [Rx Last Taken Unknown] dicyclomine 20 mg tablet 20 mg PO BID IBS 90 days #180 tabs 07/24/23 [Rx Last Taken Unknown] lorazepam 1 mg tablet (Ativan) 1 mg PO DAILY PRN anxiety #3 tabs 07/24/23 [Rx Last Taken Unknown] pantoprazole 40 mg tablet,delayed release 40 mg PO DAILY GERD #90 tabs 07/24/23 [Rx Last Taken Unknown] promethazine 25 mg tablet 25 mg PO Q6H PRN PRN Nausea #60 tabs 08/05/23 [Rx Last Taken Unknown] [id number] 36,000-114,000-180,000 unit capsule,delay rel (Creon) See Rx Instructions PO .COMPLEX #300 caps 09/25/23 [Rx Last Taken Unknown] Allergy/AdvReac Type Severity Reaction Status Date / Time doxycycline calcium Allergy Anaphylaxis Verified 10/19/23 15:21 [From Vibramycin] doxycycline hyclate Allergy Anaphylaxis Verified 10/19/23 15:21 [From Vibramycin] doxycycline monohydrate Allergy Anaphylaxis Verified 10/19/23 15:21 [From Vibramycin] NSAIDS (Non-Steroidal Allergy Anaphylaxis Verified 10/19/23 15:21 Anti-Inflamma duloxetine [From Cymbalta] AdvReac HEADACHE Verified 10/19/23 15:21 AND UPSET STOMACH hydrocodone bitartrate AdvReac STOMACH Verified 10/19/23 15:21 [From Vicodin] UPSET hydromorphone HCl AdvReac Vomiting Verified 10/19/23 15:21 [From Dilaudid] morphine AdvReac Vomiting Verified 10/19/23 15:21 Family History Mother Asthma Hypertension Kidney disease Father Asthma Myocardial infarction Daughter Asthma Diabetes Hypertension Sister Asthma Hypertension Surgical History H/O adenoidectomy H/O hernia repair H/O shoulder surgery History of cardiac catheterization History of Vanessa fundoplication History of tonsillectomy History of total left knee replacement History of total right knee replacement (TKR) Hx of section Hx of esophagogastroduodenoscopy S/P repair of paraesophageal hernia S/P total knee arthroplasty Social History Smoking Status: Former smoker quit date: 07/29/13 alcohol intake: never ROS ROS ED Constitutional Constitutional ED: Denies chills, fever(s), subjective or sweats Eyes Eyes: Denies blurry vision or change in vision ENT ENT ED: Denies ear pain, rhinorrhea or sore throat Cardiovascular Cardiovascular: Reports chest pain; Denies palpitations Respiratory/Chest Respiratory/Chest: Denies cough, dyspnea or dyspnea on exertion Gastrointestinal Gastrointestinal: Denies abdominal pain, nausea or vomiting Genitourinary Genitourinary ED: Denies dysuria or hematuria Musculoskeletal Musculoskeletal: Denies arthralgias, back pain, myalgias or neck pain Integumentary Reports Abrasions; Denies rash Neurologic Neurologic: Reports headache(s); Denies paresthesias or weakness Hematologic/Lymphatic Hematologic/Lymphatic: Reports easy bruising; Denies easy bleeding or lymphadenopathy EXAM Physical Exam Const Vital Signs: 10/19/23 15:17 10/19/23 16:16 10/19/23 17:39 Temperature 97.3 F L Temperature Source Temporal Pulse Rate 79 75 Respiratory Rate 16 22 H Respiratory Effort Normal Non-Labored Respiratory Depth Normal Respiratory Pattern Normal Blood Pressure 152/72 H 175/63 H Blood Pressure Mean 98 100 Pulse Ox 97 97 Oxygen Delivery Method Room Air Room Air Room Air 10/19/23 19:00 Temperature Temperature Source Pulse Rate 76 Respiratory Rate 16 Respiratory Effort Respiratory Depth Respiratory Pattern Blood Pressure 165/70 H Blood Pressure Mean 101 Pulse Ox 95 Oxygen Delivery Method Room Air Positive well nourished, well developed and obese General Appearance ED: well developed; Negative for NAD Nutritional Appearance: obese HEENT Reports TM's clear HEENT Narrative: Abrasion pain palpation right brow. There is no palpable pression. There is no clinical signs of basilar skull fracture. trauma and tenderness Nose: Negative for septum abnormal Tympanic Membrane ED: Yes TM's clear Eyes PERRL and EOMs intact bilaterally General Eye ED: Yes other Other Details: There is no subconjunctival hemorrhage. Neck Neck Narrative: No posterior midline tenderness. General: Negative for tenderness Chest Wall inspection of chest normal and palpation of chest normal Chest Narrative: There is pain ovation of the right sixth through eighth rib anterior axillary line. Resp normal respiratory effort and clear to auscultation bilaterally Effort and Inspection: pain with movement Cardio regular rhythm, S1 normal heart sound, S2 normal heart sound and no murmurs Rate: regular rate GI normal to inspection, nondistended, normoactive bowel sounds, non-tender, non-distended and no masses GI Narrative: There is no tenderness along the right costal margin. There is no hepatosplenomegaly.There is no bruising or soft tissue swelling noted. Back/Spine normal to inspection and no thoracic nor lumbar tenderness Lumbar Spine / Lower Back: straight leg raise negative bilaterally Extremity normal to inspection and full ROM General Extremety ED: Negative for deformity General Extremity: Negative for deformity Neuro oriented x3, CN's II-XII intact bilaterally, moves all extremities, no focal motor deficits and no sensory deficits noted Ricardo Coma Scale: document GCS findings Spontaneous Obeys Commands Oriented 15 Sensorium / Orientation: alert Plantar Reflex: Downgoing: bilateral Psych mental status grossly normal and thought process normal Skin No no rashes or lesions noted, No no wounds, skin turgor normal and no jaundice MDM MDM MDM Narrative Medical decision making narrative: Since patient is on Plavix with severe headache after head trauma with loss of conscious will obtain CT of the head to rule out subdural, epidural, traumatic subarachnoid hemorrhage or intraparenchymal contusion. Because of the rib cage pain over the sixth, seventh and eighth right rib will obtain imaging to rule out fracture and more importantly pneumothorax/hemothorax. Radiography Chest X-Ray - ED: Read by ED Physician (4 views were obtained. There is no evidence of pneumothorax or hemothorax. There may be a fracture of the fourth or fifth rib on the right. Cardiac silhouette and size normal. Hilum normal. Vertebrae are unremarkable. Will await formal read by radiologist.) Diagnostic Testing: Clinical Impression(s) from Imaging Studies Brain CT 10/19/23 16:05 IMPRESSION: No acute intracranial hemorrhage or mass effect. Electronically Signed: Augusto Lundberg MD ([place]) at 17:59 EDT Reading Location ID and State: [facility] / [place] , Service support , Ribs X-Ray 10/19/23 17:00 IMPRESSION: Possible nondisplaced fractures of the fourth and fifth ribs. Electronically Signed: Augusto Lundberg MD (Bro[place]) at 17:37 EDT Reading Location ID and State: [facility] / [place] , Service support , CT of the head reveals no evidence of subdural hematoma, epidural hematoma, traumatic subarachnoid hemorrhage or intraparenchymal contusion. Awaiting formal read by radiologist. Treatment and Re-Evaluation Narrative: Patient was medicated with oral opiate analgesia. She was given incentive spirometer. Since patient does not have lower rib fractures CT of the abdomen does not required at this time to rule out hepatic injury. Furthermore there is no tenderness in the right upper quadrant or left costal margin. Discharge Plan Triage Chief Complaint: Head Injury ED Provider: Pawel Cason Dx/Rx/DC Orders Clinical Impression: Multiple fractures of ribs, Contusion of head, Closed head injury with concussion Instructions: ED Concussion, ED Rib Fracture Prescriptions: No Action mometasone 50 mcg/actuation spray,non-aerosol 2 spray intranasal DAILY Rx Instructions: administer into each nostril amlodipine 5 mg tablet 7.5 mg PO DAILY budesonide 3 mg capsule,delayed,extend.release 6 mg PO DAILY 30 Days Qty: 60 3RF mecobalamin (vitamin B12) 1,000 mcg tablet,disintegrating 1,000 mcg sublingual DAILY Rx Instructions: place tablet under tongue and allow to dissolve for at least30 secs before swallowing Orencia 50 mg/0.4 mL syringe 50 mg subcut QMONTH Hold Instructions: Resume on 02/23/23. clopidogrel 75 MG tablet 75 mg PO DAILY Hold Instructions: Resume on 02/08/23. Resume day after completion of Eliquis Patient Comments: BLOOD THINNER simvastatin 20 MG tablet 40 mg PO QHS Patient Comments: CHOLESTEROL LOWERING albuterol sulfate 1 INHALER inhaler 2 puff INHALATION Q4H PRN PRN (Reason: Shortness Of Breath) Patient Comments: BREATING fluoxetine 20 MG capsule 60 mg PO QHS Patient Comments: ANXIETY Dry Eye Relief 15 ML drops 1 drp OP 4X/DAY bupropion HCl 150 MG tablet extended release 24 hr 150 mg PO QHS leflunomide [Arava] 20 tablet 20 mg PO DAILY Hold Instructions: Resume on 02/06/23. Patient Comments: ergocalciferol (vitamin D2) [Vitamin D2] 1,250 mcg (50,000 unit) Capsule 1,250 mcg PO WE colestipol 1 gram tablet 1 g PO PRN PRN (Reason: Diarrhea) Hold Instructions: MD Ordered Rx Instructions: avoid other meds one hour before and 4 hours after polyethylene glycol 3350 [Miralax] 17 gram/dose powder 4 g PO PRN PRN (Reason: Constipation) acetaminophen 500 mg Tablet 1,000 mg PO Q6H Qty: 100 0RF dicyclomine 20 mg tablet 20 mg PO BID 90 Days Qty: 180 0RF pantoprazole 40 mg tablet,delayed release (DR/EC) 40 mg PO DAILY Qty: 90 0RF lorazepam [Ativan] 1 mg tablet 1 mg PO DAILY PRN (Reason: anxiety) Qty: 3 0RF promethazine 25 mg tablet 25 mg PO Q6H PRN PRN (Reason: Nausea) Qty: 60 2RF Creon 36,000-114,000- 180,000 unit capsule,delayed release(DR/EC) See Rx Instructions PO .COMPLEX Qty: 300 11RF Rx Instructions: take 1-2 with snacks and 2-3 with meals Primary Care Provider: Ciara Dhillon NP Referrals: Ciara Dhillon NP, PHARMACY DELIVERY DRIVER-C [Primary Care Provider] - Disposition Disposition: Home, Self Care
--- NOTE | 2023-10-19 17:00 | RAD_ITS ---
STUDY: X-RAY - UNILATERAL RIBS ( RIGHT ) REASON FOR EXAM: Female, 63 years old. Blunt trauma POP right sixth seventh eighth rib TECHNIQUE: 4 view(s) of the ribs. COMPARISON: None. FINDINGS: Mild cortical step-off of the right anterolateral fourth and fifth ribs on image 3. The visualized lung is clear and expanded. RAD/Ribs Unil 2V No CXR IMPRESSION: Possible nondisplaced fractures of the fourth and fifth ribs. Electronically Signed: Augusto Lundberg MD ([place]) at 17:37 EDT ,
[2023-10-19 17:39] VITALS: BP 175/63; PULSE 75; RESP 22; O2SAT 97
--- NOTE | 2023-10-19 17:39 | ED.RN ---
VS late d/t pt being in imaging
[2023-10-19 19:00] VITALS: BP 165/70; PULSE 76; RESP 16; O2SAT 95
[2023-10-19] MEDS: HYDROcodone Bitartrate/Apap 5/325 Tablet PO (19:28)
[2023-10-19] MEDS: Ondansetron ODT 4 MG Tablet PO (19:28)
[2023-10-19 20:04] VITALS: BP 148/59; PULSE 75; RESP 20; TEMP 36.9; O2SAT 96
== END 2023-10-19 20:11 | disposition home or self-care (01) ==
PROVIDERS: Emergency Provider Emergency Medicine; PCP Nurse Practitioner Family; Visit Provider Emergency Medicine
DX: S22.41XA Multiple fractures of ribs, right side, initial encounter for closed fracture (principal); I11.0 Hypertensive heart disease with heart failure; I50.32 Chronic diastolic (congestive) heart failure; S06.0X0A Concussion without loss of consciousness, initial encounter; W01.10XA Fall on same level from slipping, tripping and stumbling with subsequent striking against unspecified object, initial encounter; Y93.01 Activity, walking, marching and hiking; Y92.481 Parking lot as the place of occurrence of the external cause; Z79.02 Long term (current) use of antithrombotics/antiplatelets; Z79.899 Other long term (current) drug therapy; Z87.891 Personal history of nicotine dependence
CPT/HCPCS: 70450; 71100; 99283

== ENCOUNTER 2023-12-13 16:46 | Emergency (ER) | payer MEDICARE, SELFPAY ==
[2023-12-13 16:46] VITALS: BP 164/67; PULSE 83; RESP 16; TEMP 36.2; O2SAT 97; BMI 35.5
--- NOTE | 2023-12-13 17:14 | CT_ITS ---
INDICATION: multiple rib fracutres EXAMINATION: CT Chest W/O Contrast Injection TECHNIQUE: Helically acquired images were obtained of the chest without IV contrast. A radiation dose optimization technique was used for this scan. COMPARISON: None. FINDINGS: Lungs: Scattered calcified granulomas. Scattered subsegmental atelectasis. Mediastinum: The cardiomediastinal silhouette is not enlarged. Calcified mediastinal hilar lymph nodes. No mediastinal, hilar or axillary adenopathy. Mild aortic arch and coronary artery calcifications. Pleura: Unremarkable Bones/Soft tissues: There are diffuse degenerative changes of the spine. Multiple old incompletely healed rib fractures involving the mid right lateral ribs and upper left anterolateral ribs. Upper abdomen: No visualized abnormalities in the upper abdomen. CT/Chest without Contrast IMPRESSION: No acute rib fractures. Multiple old incompletely healed rib fractures involving the mid right lateral ribs and upper left anterolateral ribs. Electronically Signed: Mendoza Anderson MD at 18:30 EDT ,
--- NOTE | 2023-12-13 17:23 | EDS_ITS ---
HPI <SWATHI Whatley - Last Filed: 12/13/23 18:55> History of Present Illness Chief Complaint: Chest Other Narrative Narrative: Patient is a 63-year-old female with history of chronic pain, 10 minutes prior myalgia, diverticulitis, COPD who presents to the emergency department with right-sided rib pain. Patient states that she fell on October 18, in a parking lot, falling hitting her head and falling on her right side. Patient was diagnosed with a right fourth and fifth rib fracture. Patient dates she was taking easy. Yesterday, she went to reach over something felt a pop in her right chest, and is having significant pain. Patient to the pain is getting worse, and she is here for evaluation. She denies any recent trauma. [facility] <SWATHI Whatley - Last Filed: 12/13/23 18:55> [facility] Medical History Acute bacterial conjunctivitis Acute bronchitis Acute ethmoidal sinusitis, unspecified Acute frontal sinusitis, unspecified Acute maxillary sinusitis, unspecified Acute pharyngitis, unspecified Ambulates with cane Anemia Anxiety Arthritis Asthma Back pain Cardiology follow-up encounter Chronic cough Chronic diastolic CHF (congestive heart failure) Congenital cataract Contact with or suspected exposure to other viral communicable disease COPD exacerbation Coronary artery stenosis Depression Difficulty swallowing Dry eye Fatigue Foreign body in conjunctival sac, left eye, initial encounter Former smoker Hip pain History of CHF (congestive heart failure) History of echocardiogram History of hiatal hernia History of IBS History of irregular heartbeat History of pain when walking History of partial replacement of left hip joint using bipolar prosthesis History of stress test HLD (hyperlipidemia) Hypertension Influenza A Injury of back Insomnia Intermittent palpitations Internal derangement of right knee Iron malabsorption Limb weakness Lumbar spondylosis Lung disease Nausea Osteoarthritis Osteoporosis Post-menopausal Psoriasis Psoriatic arthritis PVCs (premature ventricular contractions) Regular astigmatism, bilateral Shortness of breath on exertion TIA (transient ischemic attack) URI (upper respiratory infection) Vitamin D deficiency Wears glasses Home Medications ?Medication ?Instructions ?Recorded ?Last Taken ?Type albuterol sulfate 90 mcg/actuation 2 puff inhalation Q4H PRN PRN 03/13/15 Unknown History aerosol inhaler Shortness Of Breath clopidogrel 75 mg tablet 75 mg PO DAILY BLOOD THINNER 03/13/15 11/02/22 History fluoxetine 20 mg capsule 60 mg PO Q MENTAL HEALTH 12/13/15 11/12/17 History bupropion HCl 150 mg 24 hr tablet, 150 mg PO Q MENTAL HEALTH 11/13/17 11/12/17 History extended release peg [id number] 1 1 drp OP 4X/DAY DRY EYES 11/13/17 11/12/17 History %-0.2 %-0.2 % eye drops (Dry Eye Relief) leflunomide 20 mg tablet (Arava) 20 mg PO DAILY RA 03/22/18 Unknown History amlodipine 5 mg tablet 7.5 mg PO DAILY BP 08/15/22 11/06/22 09:45 History mometasone 50 mcg/actuation nasal 2 spray intranasal DAILY ALLERGIES 08/15/22 Unknown History spray ergocalciferol (vitamin D2) 1,250 1,250 mcg PO WE SUPPELEMNT 11/05/22 Unknown History mcg (50,000 unit) capsule (Vitamin D2) mecobalamin (vitamin B12) 1,000 1,000 mcg sublingual DAILY 12/06/22 Unknown History mcg disintegrating SUPPLEMENT tablet,sublingual abatacept 50 mg/0.4 mL 50 mg subcut QMONTH RA 12/17/22 Unknown History subcutaneous syringe (Orencia) polyethylene glycol 3350 17 4 g PO PRN PRN Constipation 01/09/23 Unknown History gram/dose oral powder (Miralax) [id number] See Rx Instructions PO .COMPLEX 09/25/23 Unknown Rx 36,000-114,000-180,000 unit #300 caps capsule,delay rel (Creon) budesonide 3 mg 6 mg (2 x 3 mg) PO DAILY 30 days 11/04/23 Unknown Rx capsule,delayed,extended release #60 ea dicyclomine 20 mg tablet 20 mg PO BID IBS 90 days #180 tabs 11/06/23 Unknown Rx acetaminophen 500 mg tablet 1,000 mg PO Q6H PRN fever or pain 11/15/23 Unknown History atorvastatin 80 mg tablet 80 mg PO QDAY 11/15/23 Unknown History pantoprazole 40 mg tablet,delayed 40 mg PO DAILY GERD #90 tabs 11/20/23 Unknown Rx release promethazine 25 mg tablet 25 mg PO Q6H PRN PRN Nausea #60 11/20/23 Unknown Rx tabs hydrocortisone 2.5 % topical cream 1 applic NM BID PRN Crohn's 11/29/23 Unknown Rx with perineal applicator disease #30 grams oxycodone-acetaminophen 5 mg-325 1 tab PO Q8H PRN pain 3 days #10 12/13/23 Unknown Rx mg tablet (Percocet) tabs oxycodone-acetaminophen 5 mg-325 1 tab PO Q8H PRN pain 3 days #10 12/13/23 Unknown Rx mg tablet (Percocet) tabs Allergy/AdvReac Type Severity Reaction Status Date / Time doxycycline calcium (From Allergy Anaphylaxis Verified 12/13/23 16:48 Vibramycin) doxycycline hyclate (From Allergy Anaphylaxis Verified 12/13/23 16:48 Vibramycin) doxycycline monohydrate Allergy Anaphylaxis Verified 12/13/23 16:48 (From Vibramycin) NSAIDS (Non-Steroidal Allergy Anaphylaxis Verified 12/13/23 16:48 Anti-Inflamma duloxetine (From Cymbalta) AdvReac HEADACHE Verified 12/13/23 16:48 AND UPSET STOMACH hydrocodone bitartrate (From AdvReac STOMACH Verified 12/13/23 16:48 Vicodin) UPSET hydromorphone HCl (From AdvReac Vomiting Verified 12/13/23 16:48 Dilaudid) morphine AdvReac Vomiting Verified 12/13/23 16:48 Family History Mother Asthma Hypertension Kidney disease Father Asthma Myocardial infarction Daughter Asthma Diabetes Hypertension Sister Asthma Hypertension Surgical History H/O adenoidectomy H/O hernia repair H/O shoulder surgery History of cardiac catheterization History of Vanessa fundoplication History of tonsillectomy History of total left knee replacement History of total right knee replacement (TKR) Hx of section Hx of esophagogastroduodenoscopy S/P repair of paraesophageal hernia S/P total knee arthroplasty Social History (Updated 12/13/23 @ 16:54 by Stephanie Bonilla) household members: family housing: house Smoking Status: Former smoker quit date: 07/29/13 alcohol intake: never substance use type: does not use ROS <SWATHI Whatley - Last Filed: 12/13/23 18:55> ROS ED ROS Narrative Constitutional: Negative for fever, chills, weight loss, weakness Eyes: Negative for vision loss, vision change, double vision ENT: Negative for any sore throat, ear pain, congestion Cardiovascular: Negative for any chest pain, tightness, palpitations Respiratory: Negative for any cough, sputum production, hemoptysis, dyspnea, dyspnea on exertion, orthopnea Gastrointestinal: Negative for any abdominal pain, nausea, vomiting, diarrhea, constipation, blood in stool, blood in vomit : Negative for any urinary frequency, dysuria, retention, blood in urine Muscle skeletal: Negative for any neck pain, back pain. Positive right-sided rib pain Neurological: Negative for any headache, syncope, dizziness Skin: Negative for any rashes, itching, abrasions, lacerations Psychiatric: Negative for any depression, anxiety, stress, suicidal ideation, homicidal ideation Hematologic: Negative for any excessive bruising, easy bleeding EXAM <SWATHI Whatley - Last Filed: 12/13/23 18:55> Physical Exam Narrative Exam Narrative: Vital signs reviewed. HEET: Head normocephalic atraumatic, TMs clear bilaterally. Posterior pharynx is clear, moist mucous membranes. Nares clear bilaterally. Neck: Supple with no lymphadenopathy or tenderness. No signs of meningismus. Cardiac: Regular rate and rhythm no murmurs gallops or rubs, equal peripheral pulses bilaterally. Respiratory: Diminished lung sounds to the right lower lung base, remainder was clear. Patient does have tenderness to both the anterior, lateral, posterior ribs on the right side. No crepitus felt. Abdomen: Soft, nontender, nondistended. No abdominal bruit or pulsatile masses. No hepatosplenomegaly Extremities: No peripheral edema, no signs of gross trauma or deformity. Active full range of motion of all extremities. Neuro: Cranial nerves II through XII intact, no focal neurological deficits. Skin: Clean dry and intact with no rash, purpura, petechiae, vesicles or pustules. Backs/flank: No CVA tenderness, no midline spinal tenderness, no deformity. Psych: Normal mood and affect. No SI, HI or acute psychosis. Const Vital Signs: 12/13/23 16:46 12/13/23 16:53 12/13/23 18:46 Temperature 97.2 F L Temperature Source Temporal Pulse Rate 83 72 Respiratory Rate 16 16 Respiratory Effort Normal Non-Labored Blood Pressure 164/67 H 159/75 H Blood Pressure Mean 99 103 Pulse Ox 97 99 Oxygen Delivery Method Room Air 12/13/23 19:22 Temperature 97.1 F L Temperature Source Pulse Rate 90 Respiratory Rate 17 Respiratory Effort Blood Pressure 140/98 H Blood Pressure Mean 112 Pulse Ox 96 Oxygen Delivery Method <Dr. Warren Tena DO - Last Filed: 12/13/23 22:08> Physical Exam Const Vital Signs: 12/13/23 16:46 12/13/23 16:53 12/13/23 18:46 Temperature 97.2 F L Temperature Source Temporal Pulse Rate 83 72 Respiratory Rate 16 16 Respiratory Effort Normal Non-Labored Blood Pressure 164/67 H 159/75 H Blood Pressure Mean 99 103 Pulse Ox 97 99 Oxygen Delivery Method Room Air 12/13/23 19:22 Temperature 97.1 F L Temperature Source Pulse Rate 90 Respiratory Rate 17 Respiratory Effort Blood Pressure 140/98 H Blood Pressure Mean 112 Pulse Ox 96 Oxygen Delivery Method [facility] <SWATHI Whatley - Last Filed: 12/13/23 18:55> [facility] Radiography Diagnostic Testing: Clinical Impression(s) from Imaging Studies Chest CT 12/13/23 17:14 IMPRESSION: No acute rib fractures. Multiple old incompletely healed rib fractures involving the mid right lateral ribs and upper left anterolateral ribs. Electronically Signed: Mendoza Anderson MD at 18:30 EDT , Treatment and Re-Evaluation :: Differential diagnosis includes however is not limited to: Rib fracture, pneumonia, pneumothorax, hemothorax, muscle strain Patient appears to be in no obvious respiratory distress, patient's vital signs are stable. Presenting to the emergency department for right-sided rib pain. Patient does have history of fourth and fifth rib fractures. Secondary the patient's pain, this being her second visit, CT scan of the chest was obtained. Patient was given oral Percocet. All radiologic examinations were read, reviewed by the emergency department attending. From these reads, a plan of care will be put in place. CT scan shows no acute rib fractures. Multiple old incompletely healed rib fractures involving the mid right lateral ribs and upper left anterior lateral ribs. At this time, patient be given a incentive spirometer, she will be given a course of pain medicine. She is instructed use the incentive spirometer 10 times an hour while awake. This will help decrease her risk for any pneumonia. She will follow-up outpatient. All questions answered, stable for discharge. <Dr. Warren Tena, DO - Last Filed: 12/13/23 22:08> [facility] Narrative Medical decision making narrative: Differential diagnosis includes however is not limited to: Rib fracture, pne umonia, pneumothorax, hemothorax, muscle strain Patient appears to be in no obvious respiratory distress, patient's vital signs are stable. Presenting to the emergency department for right-sided rib pain. Patient does have history of fourth and fifth rib fractures. Secondary the patient's pain, this being her second visit, CT scan of the chest was obtained. Patient was given oral Percocet. All radiologic examinations were read, reviewed by the emergency department attending. From these reads, a plan of care will be put in place. CT scan shows no acute rib fractures. Multiple old incompletely healed rib fractures involving the mid right lateral ribs and upper left anterior lateral ribs. At this time, patient be given a incentive spirometer, she will be given a course of pain medicine. She is instructed use the incentive spirometer 10 times an hour while awake. This will help decrease her risk for any pneumonia. She will follow-up outpatient. All questions answered, stable for discharge. This patient was seen with a PA/CLASSROOM COORDINATOR Individually assessed they patient including history and physical. I have reviewed everything on the chart that is available and agree with the documentation provided by the PA/CLASSROOM COORDINATOR including discussion about the assessment, treatment plan, discussion, and return precautions. Patient presenting rib pain on the right patient states worsening fractures but is acutely decided, more pain aspect of CT imaging today which shows multiple right-sided incompletely healed rib fractures on the right. Patient counseled on this as she is given pain control and incentive spirometer. Discharge home in stable. Radiography Diagnostic Testing: Clinical Impression(s) from Imaging Studies Chest CT 12/13/23 17:14 IMPRESSION: No acute rib fractures. Multiple old incompletely healed rib fractures involving the mid right lateral ribs and upper left anterolateral ribs. Electronically Signed: Mendoza Anderson MD at 18:30 EDT , Discharge Plan Triage Chief Complaint: Chest Other ED Midlevel Provider: Jean-Paul Bates ED Provider: Warren Tena Dx/Rx/DC Orders Clinical Impression: Chest wall discomfort, Hx of fracture of rib Instructions: ED Chest Pain, Uncertain Cause, ED Rib Fracture Prescriptions: New oxycodone-acetaminophen [Percocet] 5-325 mg tablet 1 tab PO Q8H PRN (Reason: pain) 3 Days Qty: 10 0RF oxycodone-acetaminophen [Percocet] 5-325 mg tablet 1 tab PO Q8H PRN (Reason: pain) 3 Days Qty: 10 0RF No Action mometasone 50 mcg/actuation spray,non-aerosol 2 spray intranasal DAILY Rx Instructions: administer into each nostril amlodipine 5 mg tablet 7.5 mg PO DAILY mecobalamin (vitamin B12) 1,000 mcg tablet,disintegrating 1,000 mcg sublingual DAILY Rx Instructions: place tablet under tongue and allow to dissolve for at least30 secs before swallowing Orencia 50 mg/0.4 mL syringe 50 mg subcut QMONTH acetaminophen 500 mg tablet 1,000 mg PO Q6H PRN (Reason: fever or pain) atorvastatin 80 mg tablet 80 mg PO QDAY clopidogrel 75 MG tablet 75 mg PO DAILY Patient Comments: BLOOD THINNER albuterol sulfate 1 INHALER inhaler 2 puff INHALATION Q4H PRN PRN (Reason: Shortness Of Breath) Patient Comments: BREATING fluoxetine 20 MG capsule 60 mg PO QHS Patient Comments: ANXIETY Dry Eye Relief 15 ML drops 1 drp OP 4X/DAY bupropion HCl 150 MG tablet extended release 24 hr 150 mg PO QHS leflunomide [Arava] 20 tablet 20 mg PO DAILY Patient Comments: ergocalciferol (vitamin D2) [Vitamin D2] 1,250 mcg (50,000 unit) Capsule 1,250 mcg PO WE polyethylene glycol 3350 [Miralax] 17 gram/dose powder 4 g PO PRN PRN (Reason: Constipation) Creon 36,000-114,000- 180,000 unit capsule,delayed release(DR/EC) See Rx Instructions PO .COMPLEX Qty: 300 11RF Rx Instructions: take 1-2 with snacks and 2-3 with meals budesonide 3 mg capsule,delayed,extend.release 6 mg PO DAILY 30 Days Qty: 60 3RF dicyclomine 20 mg tablet 20 mg PO BID 90 Days Qty: 180 0RF promethazine 25 mg tablet 25 mg PO Q6H PRN PRN (Reason: Nausea) Qty: 60 2RF pantoprazole 40 mg tablet,delayed release (DR/EC) 40 mg PO DAILY Qty: 90 0RF hydrocortisone 2.5 % cream with perineal applicator 1 applic NM BID PRN (Reason: Crohn's disease) Qty: 30 1RF Primary Care Provider: Ciara Dhillon NP Referrals: Ciara Dhillon NP, CLASSROOM COORDINATOR-C [Primary Care Provider] - Activity Restrictions/Additional Instructions: Use your incentive spirometer 5-10 times per hour while awake. This is to decrease your risk for pneumonia. Use the pain medicine as needed. Print Language: Moldovan Disposition Disposition: Home, Self Care Discharge Date/Time: 12/13/23 19:37
[2023-12-13] MEDS: Oxycodone/Apap 5/325 Tablet PO (17:32)
[2023-12-13 18:46] VITALS: BP 159/75; PULSE 72; RESP 16; O2SAT 99
[2023-12-13 19:22] VITALS: BP 140/98; PULSE 90; RESP 17; TEMP 36.2; O2SAT 96
== END 2023-12-13 19:37 | disposition home or self-care (01) ==
PROVIDERS: Emergency Provider Student in an Organized Health Care Education/Training Program; PCP Nurse Practitioner Family; Visit Provider Student in an Organized Health Care Education/Training Program
DX: R07.89 Other chest pain (principal); I50.32 Chronic diastolic (congestive) heart failure; I11.0 Hypertensive heart disease with heart failure; J44.9 Chronic obstructive pulmonary disease, unspecified; Z87.891 Personal history of nicotine dependence; Z87.81 Personal history of (healed) traumatic fracture
CPT/HCPCS: 71250; 99282

== ENCOUNTER → 2024-01-14 | Outpatient (CLI) | payer MEDICARE, MEDICAID, SELFPAY ==
[2024-01-14 16:50] LABS: Syphilis Antibodies Non-reactive; Vitamin B12 1994 pg/mL (211-911)
[2024-01-19 17:06] LABS: Methylmalonic Acid Bld 222 nmol/L (0-378)
== END | disposition home or self-care (01) ==
LOC: LAB 15:07
PROVIDERS: PCP Nurse Practitioner Family; Referring Provider Nurse Practitioner Adult Health; Visit Provider Nurse Practitioner Adult Health
DX: R41.3 Other amnesia (principal)
CPT/HCPCS: 36415; 82607; 82746; 83921; 86780

== ENCOUNTER 2024-03-12 12:00 | Outpatient (RCR) | payer MEDICARE, MEDICAID, SELFPAY ==
--- NOTE | 2024-01-28 11:36 | HP.PTEVAL ---
Patient's Visit Information Visit Information Visit Information: DEWEY HORTA is a 63 year old F referred to Physical Therapy by SWATHI FERRIS with a diagnosis of falls, unsteady gait. Date of Evaluation: 01/28/24 Physical Therapist: Lincoln Gonzalez, DPT, OCS, CSCS Visit Plan Frequency: 2x /Week Duration: 4-6 Weeks Plan: 2x/week for 4-6 weeks for 1. teach home based LE and postural strength, weight shifting and vestibular balance ex with HO when safe. Encourage use of cane and balance safety tips. Given balance Ho and safety tips on day one today. 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 Broke ribs last fall 12/19/23 she fell walking across parking lot at [facility] and tripped and hit head and broke ribs. I fall alot and not sure why, just unsteady. Losing feeling in LE for unknown reason. Had R hip and B TKA surgeries whcih are doing ok. No diabetes, she cannot tell she is losing sensation in LE but doc says she is. Not gettin spinning. Uses cane to get around most of time. Was not using cane when she fell as she forgot it. All falls have been without cane. Has wh walker from having knees done. Sleeping is normal for her. Pain: back from OA, ribs are healed. Not employed, disabled form depressiona nd arthritis. Spends day: cleaning house slowly, laundry, avoids steps as no need to do them, has railing. Cooks with breaks as she gets back pain with standing. Hobbies: none. watches TV No regualr exercises. No probems driving. Pain back pain: Pain Intensity (Out of 10): 0 Pain Intensity Range: 0 and 6 Objective Objective: Walking mod I with cane in R UE today slow but safe. Without cane can ambulate and take FGA but slow weight shifts. Chair and bed trasnfers are I. Steps are reciprocal with one rail adn one cane, slw nad minimal Fw weight shift but mod I. UE AROM WFL, strength 3+/5 LE AROM WFL, some gastroc and HS tightness at 0 DF and -25 90/90 test. reflexes 2/3 patella and achilles B Sensation LE WNL to gross light touch, possibly some mild deficits R>L in distal light touch. strength hips 3+, knees 4- and ankles 4- B. coordination to reciprocal toe and heel tap is good. Balance/Special Test Scores Functional Gait Assessment Score: 25 % Disability: 16.6700 CATSIB Score (Max score 120 seconds): 98 Lower Extremity Functional Score: 31 TUG Test Time Seconds: 12 30 Second Chair Rise Test Seconds: 10 Goals Goal 1:: 14 on 30 SSTS to show improved strength and mobility Goal Time Frame: 4-6 Weeks Goal 2:: I approp HEP to limit future problems with balance and strength Goal Time Frame: 4-6 Weeks Goal 3:: Pt feel 75% better in ability to confidently get around and remmebering to use cane. Goal Time Frame: 4-6 Weeks Goal 4:: FGA Goal Time Frame: 4-6 Weeks Rehabilitation Potential Physical Therapy Diagnosis: balance deficits and weakness/sedentarism effecting funciton. Rehabilitation Potential: Fair Anticipated Interventions Patient/Client Instruction: Educate patient on: Condition and Plan of Care For the Purpose of:: To improve muscle performance and motor function, To increase tolerance to activity/condition/position, To improve ability of physical actions for home/community/work/leisure and To improve gait and locomotor functions Therapeutic Exercise to Include: Strength training, Balance training, Postural training and Flexibilty training For the Purpose of:: To improve nutrient delivery to tissue, To improve muscle performance and motor function, To increase tolerance to activity/condition/position, To improve ability of physical actions for home/community/work/leisure and To improve gait and locomotor functions Text: Thank you for the opportunity to evaluate your patient. For Medicare and Medicare HMO plans, please review the plan of care and approve it. It will need to be FAXED BACK to us at [phone] for Medicare purposes. For Medicare only, by signing this I certify the plan of care. Please let me know if there are questions or concerns regarding this plan of care. Physician Signature: Date:
--- NOTE | 2024-03-12 12:15 | HP.PTDCSUM ---
Discharge Summary D/C summary: It has been my pleasure to treat DEWEY HORTA referred by SWTAHI FERRIS, with the diagnosis of falls, unsteady gait for a total of 9 visit(s). Discharge Date: 03/12/24 Please see the following information for a summary of their discharge status. Subjective Subjective: Doing better. Using cane to get around. Dizzyness now and then but much better. balance feels better. No falls , no falls. Walking outside and does not effect activities. Ready to be done. Will continue ex at home. To doctor in 6 months. If gets dizzy typically just sitting still and doctor knows about this. Pain back pain: Pain Intensity (Out of 10): 0 neck: Pain Intensity (Out of 10): 0 Overall Improvement % Improvement: 95 Objective Objective/Function: FGA is much better, 30 SSTS is improved from day one and patient fucnitonally ambulating outdoors with her cane Will continue via HEP Goals Goal 1:: 14 on 30 SSTS to show improved strength and mobility Goal Progress: Progressing Goal 2:: I approp HEP to limit future problems with balance and strength Goal Progress: Goal Met Goal 3:: Pt feel 75% better in ability to confidently get around and remembering to use cane. Goal Progress: Goal Met Goal 4:: FGA Goal Progress: Goal Met Plan Plan: d/c D/C Information d/c sentence: If there are questions or concerns regarding this patient's physical therapy, please feel free to call me at [phone]. Thank you for the referral of this patient. Sincerely, Lincoln Gonzalez, DPT, OCS, CSCS Balance/Gait/Functional tests Balance/Special Test Scores Functional Gait Assessment Score: 29 % Disability: 3.3400 CATSIB Score (Max score 120 seconds): 98 Lower Extremity Functional Score: 47 TUG Test Time Seconds: 12 Tug Test: <20 sec.=mostly independent 30 Second Chair Rise Test Seconds: 12 Improvement % Improvement: 95
== END 2024-03-12 12:46 | disposition home or self-care (01) ==
LOC: PT 12:00
PROVIDERS: PCP Nurse Practitioner Family; Referring Provider Nurse Practitioner Adult Health; Visit Provider Nurse Practitioner Adult Health
DX: R26.81 Unsteadiness on feet (principal)
CPT/HCPCS: 97110; 97162; 97530

== ENCOUNTER 2024-03-20 12:31 | Day surgery (SDC) | payer MEDICARE, SELFPAY ==
[2024-03-20] VITALS (8 sets, daily range): BP systolic 132–152; BP diastolic 63–76; PULSE 69–79; RESP 16–18; TEMP 36.1–36.7; O2SAT 94–98; BMI 34.3
--- NOTE | 2024-03-20 13:25 | PRE.ANES_ITS ---
ASA Classification* ASA Classification ASA Classification: 3 Assessment & Plan Anesthesia* Anesthesia Assessment Anesthesia Assessment: Discussed sedation and/or anesthesia options, risks, benefits, and alternatives with patient/parents/legal guardian/POA. Questions invited. The patient/parents/legal guardian/POA seems to understand and agrees to proceed with anesthesia plan. Reviewed the physical assessment, medical history, allergy history and patient home medications list prior to surgery/procedure/anesthetic and documented any changes. Performed airway and anesthesia risk assessments. Anesthesia Type Anesthesia Type: MAC Anesthesia Focused Assessment* Temperature: 97.0 F Pulse Rate: 79 Blood Pressure: 132/76 Respiratory Rate: 18 Pulse Ox: 96 Airway Assessment Mouth opens: >3 cm Mallampati Score: II Focused Labs Anesthesia Preop lab: CBC WBC 11.2 K/mm3 (4.4-11.0) H 01/24/23 05:55 RBC 3.40 M/mm3 (4.2-5.4) L 01/24/23 05:55 Hgb 9.5 g/dL (12.0-15.0) L 01/24/23 05:55 Hct 30.6 % (37-47) L 01/24/23 05:55 Plt Count 199 K/mm3 (150-450) 01/24/23 05:55 CHEMISTRY Potassium 4.3 mmol/L (3.5-5.1) 01/24/23 05:55 Sodium 135 mmol/L (136-145) L 01/24/23 05:55 Magnesium 1.9 mg/dL (1.6-2.6) 01/11/23 15:05 BUN 9 mg/dL (7-18) 01/24/23 05:55 Creatinine 0.74 mg/dL (0.55-1.02) 01/24/23 05:55 Glucose 138 mg/dL (74-106) H 01/24/23 05:55 TSH 0.80 uIU/mL (0.358-3.74) 11/21/15 16:47 COAG PT 14.0 SECONDS (11.7-14.9) 01/11/23 15:06 Pre-Assessment Diagnosis/Proposed Procedure Planned Operative Procedure(s): EGD Anesthesia History Anesthesia History - 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 When Was Last Pacemaker Check QUESTION #4 FULL TEXT: You/Your Family Experience fever (hyperthermia) with Anesthesia Last Oral Intake Last Oral intake: Last Oral Intake NPO since 20:00 03/20/24 12:59 Meds taken in AM with sips of water? Meds patient instructed to take am of surgery PONV PONV - cafeteria clerk: PONV - cafeteria clerk Female Yes 03/17/24 08:51 HX of Motion Sickness No 03/17/24 08:51 HX of N/V After Surgery No 03/17/24 08:51 Non-Smoker Yes 03/17/24 08:51 Duration of Surgery greater No 03/17/24 08:51 than 60 minutes Number of Risk Factors 2 03/17/24 08:51 PONV Score Moderate Risk 03/17/24 08:51 Height & Weight Height & Weight: Anesthesia: Height & Weight Height 5 ft 3 in 03/20/24 12:59 Weight: 88 kg 03/20/24 12:59 Body Mass Index (BMI) 34.3 03/20/24 12:59 Respiratory Assessment Respiratory Assessment - cafeteria clerk: Respiratory Tract Infection Hx - cafeteria clerk Hx Respiratory Tract Infection No 03/17/24 08:51 STOP Sleep Apnea STOP Sleep Apnea - cafeteria clerk: STOP Sleep Apnea - cafeteria clerk Hx Hypertension Yes: CONTROLLED ON MED 03/17/24 08:51 Hx Sleep Apnea No 03/17/24 08:51 CPAP No 03/17/24 08:51 BIPAP No 03/17/24 08:51 Do you snore loudly (louder No 03/17/24 08:51 than talking or can be heard Do you often feel tired/ Yes 03/17/24 08:51 fatigued/ sleepy during daytime? Has anyone observed you stop No 03/17/24 08:51 breathing during sleep? STOP Results Positive 03/17/24 08:51 QUESTION #5 FULL TEXT : Do you snore loudly (louder than talking or can be heard through closed doors)? Tobacco Use History Tobacco Use History - cafeteria clerk: Tobacco Use History - cafeteria clerk Tobacco Use Smoking Status Former smoker 03/17/24 08:51 Hx Tobacco Use No 03/17/24 08:51 Years Smoking Packs Smoked per Day Smoking Cessation Date was No - quit smoking greater 03/17/24 08:51 within the last 15 years than 15 years ago Hx Smoking Cessation Date Hx Smoking Cessation No 03/17/24 08:51 Counseling Hematologic Medial History Hematologic Hx - cafeteria clerk: Hematologic Medical Hx - tilesetter Hx of Blood Transfusion Yes 03/17/24 08:51 Hx of Transfusion in last 3 No 03/17/24 08:51 Months Date of Last Transfusion (if within last 3 months) Ever experience any problems No 03/17/24 08:51 with transfusion(s)? Specify any problems Hx of Preganancy in last 3 No 03/17/24 08:51 Months Nurse Filling Out Transfusion DSCHRIBER 03/17/24 08:51 & Questions: Date: 03/17/24 03/17/24 08:51 Time: 08:52 03/17/24 08:51 Patient unable to answer at this time (ie. 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 History - cafeteria clerk: /Reproductive Hx- cafeteria clerk Hx Now Gestational Age (in weeks): EDC: Hx Hx Para Hx Section SAB No 03/17/24 08:51 Active Medications Active Medications: Current Medications Generic Name Dose Route Start Last Admin Trade Name Freq PRN Reason Stop Dose Admin Lactated Ringer's 1,000 mls @ 15 mls/hr 03/20/24 12:45 IV .Q48H NICOLE PFSH Medical History History of Crohn's disease Psoriatic arthritis Psoriasis Internal derangement of right knee Wears glasses Post-menopausal Depression Anxiety Ambulates with cane Injury of back Difficulty swallowing History of IBS History of hiatal hernia Former smoker Shortness of breath on exertion Chronic cough History of echocardiogram History of stress test Hypertension Cardiology follow-up encounter History of CHF (congestive heart failure) History of irregular heartbeat Acute pharyngitis, unspecified URI (upper respiratory infection) Contact with or suspected exposure to other viral communicable disease History of partial replacement of left hip joint using bipolar prosthesis Vitamin D deficiency HLD (hyperlipidemia) Insomnia Dry eye Regular astigmatism, bilateral PVCs (premature ventricular contractions) Coronary artery stenosis Chronic diastolic CHF (congestive heart failure) Iron malabsorption Osteoarthritis Lumbar spondylosis Osteoporosis Congenital cataract Intermittent palpitations Nausea TIA (transient ischemic attack) Acute maxillary sinusitis, unspecified Acute ethmoidal sinusitis, unspecified Acute frontal sinusitis, unspecified COPD exacerbation Foreign body in conjunctival sac, left eye, initial encounter Acute bacterial conjunctivitis Influenza A Acute bronchitis Back pain Limb weakness Asthma Anemia Arthritis Home Medications ?Medication ?Instructions ?Recorded ?Last Taken ?Type albuterol sulfate 90 mcg/actuation 2 puff inhalation Q4H PRN PRN 03/13/15 Unknown History aerosol inhaler Shortness Of Breath clopidogrel 75 mg tablet 75 mg PO DAILY BLOOD THINNER 03/13/15 03/15/24 History fluoxetine 20 mg capsule 60 mg PO Q MENTAL HEALTH 12/13/15 03/19/24 History bupropion HCl 150 mg 24 hr tablet, 150 mg PO Q MENTAL HEALTH 11/13/17 03/19/24 History extended release peg [id number] 1 1 drp OP 4X/DAY DRY EYES 11/13/17 03/19/24 History %-0.2 %-0.2 % eye drops (Dry Eye Relief) leflunomide 20 mg tablet (Arava) 20 mg PO DAILY RA 03/22/18 03/19/24 History amlodipine 5 mg tablet 7.5 mg PO DAILY BP 08/15/22 03/20/24 History mometasone 50 mcg/actuation nasal 2 spray intranasal DAILY ALLERGIES 08/15/22 03/19/24 History spray ergocalciferol (vitamin D2) 1,250 1,250 mcg PO .EVERY OTHER WEEK 11/05/22 Unknown History mcg (50,000 unit) capsule (Vitamin SUPPELEMNT D2) mecobalamin (vitamin B12) 1,000 1,000 mcg sublingual DAILY 12/06/22 03/19/24 History mcg disintegrating SUPPLEMENT tablet,sublingual abatacept 50 mg/0.4 mL 50 mg subcut QMONTH RA 12/17/22 Unknown History subcutaneous syringe (Orencia) polyethylene glycol 3350 17 4 g PO PRN PRN Constipation 01/09/23 Unknown History gram/dose oral powder (Miralax) [id number] See Rx Instructions PO .COMPLEX 09/25/23 03/19/24 Rx 36,000-114,000-180,000 unit #300 caps capsule,delay rel (Creon) acetaminophen 500 mg tablet 1,000 mg PO Q6H PRN fever or pain 11/15/23 Unknown History atorvastatin 80 mg tablet 80 mg PO QDAY 11/15/23 Unknown History hydrocortisone 2.5 % topical cream 1 applic TX BID PRN Crohn's 11/29/23 Unknown Rx with perineal applicator disease #30 grams budesonide 3 mg 6 mg (2 x 3 mg) PO DAILY PRN 12/27/23 03/19/24 Rx capsule,delayed,extended release diarrhea #60 ea dicyclomine 10 mg capsule 10 mg PO TID PRN abdominal pain 12/27/23 03/19/24 Rx #90 caps promethazine 25 mg tablet 25 mg PO Q6H PRN PRN Nausea #60 01/22/24 03/20/24 Rx tabs lubiprostone 8 mcg capsule 8 mcg PO BID PRN for constipation 01/26/24 Unknown Rx #60 caps pantoprazole 40 mg tablet,delayed 40 mg PO DAILY #90 TABLETS 02/12/24 03/20/24 Rx release alprazolam 1 mg tablet 1 mg PO BID PRN sleep and diarrhea 03/10/24 03/20/24 Rx #40 tabs 0.5 mg meclizine 25 mg tablet 25 mg PO DAILY PRN PRN dizziness 03/17/24 Unknown History Allergy/AdvReac Type Severity Reaction Status Date / Time doxycycline calcium (From Allergy Anaphylaxis Verified 03/20/24 12:54 Vibramycin) doxycycline hyclate (From Allergy Anaphylaxis Verified 03/20/24 12:54 Vibramycin) doxycycline monohydrate Allergy Anaphylaxis Verified 03/20/24 12:54 (From Vibramycin) NSAIDS (Non-Steroidal Allergy Anaphylaxis Verified 03/20/24 12:54 Anti-Inflamma duloxetine (From Cymbalta) AdvReac HEADACHE Verified 03/20/24 12:54 AND UPSET STOMACH hydrocodone bitartrate (From AdvReac STOMACH Verified 03/20/24 12:54 Vicodin) UPSET hydromorphone HCl (From AdvReac Vomiting Verified 03/20/24 12:54 Dilaudid) morphine AdvReac Vomiting Verified 03/20/24 12:54 Family History Mother Asthma Hypertension Kidney disease Father Asthma Myocardial infarction Daughter Asthma Diabetes Hypertension Sister Asthma Hypertension Surgical History History of total right knee replacement (TKR) S/P total knee arthroplasty Hx of esophagogastroduodenoscopy History of cardiac catheterization S/P repair of paraesophageal hernia History of Vanessa fundoplication H/O adenoidectomy History of tonsillectomy H/O hernia repair History of total left knee replacement Hx of section H/O shoulder surgery Social History household members: family housing: house Smoking Status: Former smoker quit date: 07/29/13 alcohol intake: never substance use type: does not use Review of Systems (Anesthesia) ROS Narrative System reviewed and no additional complaints, except as documented.
--- NOTE | 2024-03-20 13:33 | HP.PCM_ITS ---
History and Physical Date of Admission: 03/20/24 DEWEY HORTA, is a 63 F who presents to the office today for follow up. Prior workup: ? Surgery with Vanessa fundoplication for large hiatal hernia. *BGI established 09.19.22 with mild dysphagia, loose stools and nausea following fundoplication 2019 ? Biochemical CBC, ESR, CMP, LDH, GAME, ANTONIO, YADIEL comp, ANCA without pertinent abnormality ? CRP H5.02, Crohn?s (apANCA, ACCA, ALCA, AMCA) ? EGD and colonoscopy 12.13.22 irregular Zline; small hiatal hernia; intact Toupet fundoplication. Metaplasia neg. ? Colonoscopy diverticulosis; congested mucosa. No path changes OV 11.21.22 currently experiencing constipation with utilization of MiraLAX; will return to colestipol if loose stools return. ? Stool calprotectin, lactoferrin WNL OV 07.05.23 reports unintentional weight loss because of loose stools. She was taking colestipol previously but this caused constipation and she quit. Contact 09.23.23 Elastase is low and her lactoferrin is positive. Treated with SIBO and start PERT. Contact 09.25.23 To start xifaxan and creon. OV 11.15.23 Stopped Colestipol d/t constipation. Diarrhea improved, but will have episodes on occasion. Stomach pain RUQ and bloating during eating. Frequent nausea and vomiting. Difficulty swallowing many types of food and gastric reflux during eating. C/o hemorrhoids. OV 03.10.24 pt reports daily nausea with vomiting 3 times a week. Pt reports that she is only eating once a day due to abdominal cramping. Pt states that dicyclomine is not helpful. Pt reports 2-3 bm per day; usually diarrhea; denies blood in the stool. Pt reports difficulty swallowing that has been going on for 2-3 years, feels like food is getting stuck in her throat. ROS Const Constitutional: Positive for fatigue, frequent falls and weight change (weight loss); No fever(s) ENT ENT: Positive for difficulty swallowing Gastro GI: Positive for abdominal pain, bloating, diarrhea, difficulty swallowing, excessive flatus, nausea/dyspepsia and vomiting; No belching, change in bowel habits, change in stool character, coffee ground emesis, constipation, cramping, heartburn, feeling full early, incontinent of stools, Vomiting blood/hematemesis, Blood in stool, loose stools, Black,tarry stools, pain with swallowing or other Musc Musculoskeletal: Positive for abnormal gait, joint pain, back pain, joint swelling, muscle cramps, muscle weakness, stiffness and Arthritis Skin Skin: No yellowing of the eye or itchy eyes Neuro Neurology: Positive for abnormal gait, frequent falls and tremor(s) Psych Psychiatric: Positive for anxiety and Positive for depression Endo Endocrine: Positive for fatigue and weight change (weight loss) Aller/Imm Allergy/Immunologic: No itchy eyes Andrew/Lymp Hematologic/Lymphatic: Positive for easy bleeding and easy bruising Exam Const General: cooperative and comfortable Nutritional Appearance: obese Orientation: alert, awake and oriented x3 Assessment and Plan Assessment and Plan (1) Diarrhea: Status: Chronic Qualifiers: Diarrhea type: unspecified type Qualified Code(s): R19.7 - Diarrhea, unspecified Plan: 63-year-old with history of chronic diarrhea for at least 5 years. She has a past medical history of rheumatoid arthritis and Sjogren syndrome currently on O rencia therapy. In the workup of her chronic diarrhea we did biochemical testing that it showed 4 out of 5 markers for Crohn's disease with aggressive activity. She did undergo an upper endoscopy and lower colonoscopy. There was no gross inflammation seen in the upper or lower GI tract. This was confirmed by biopsies of the duodenum, stomach and randomly through the colon and terminal ileum. She comes in today still continuing to have diarrhea. Most of which is postprandial. We gave her colestipol before a previous diagnosis of dumping syndrome that was given to her several years ago. She also has a strong family history of inflammatory bowel disease in her mother that has ulcerative colitis. For now we will check her stools for alpha-1 antitrypsin. We will check her QuantiFERON gold status and acute on chronic hepatitis status. We will also start her on empiric budesonide 6 mg a day. We will order MR enterography to see if there is any mucosal changes that cannot be seen on capsule endoscopy or optical colonoscopy. She is okay with this plan. (2) Crohn disease: Status: Acute Plan: Her workup is highly suggestive of Crohn's disease including 3 out of 5 markers for inflammatory bowel disease. Also MR enterography showing diffuse enteritis. She was started on budesonide therapy and is active doing very well with that. I think her inflammatory bowel disease is contributing to her exocrine pancreatic insufficiency. She has been on medicines for Crohn's disease including budesonide and mesalamine and possibly sulfasalazine. She did not have any improvement with those medicines. I think a lot of her symptoms are mostly secondary to IBS with diarrhea. Currently she does get some abdominal pain and cramping with some intermittent trouble swallowing. I will give her a short course of alprazolam to see if it helps her symptoms. If it does we may have to introduce amitriptyline and talk to her primary regarding BuSpar therapy possibly instead of her fluoxetine or bupropion. (3) Pancreatic insufficiency: Status: Acute Plan: We will recheck her pancreatic enzymes in the near future. (4) Difficulty swallowing: Status: Acute Comment: OCC Plan: She has a history of Vanessa fundoplication. I suspect that she is having some dysphagia from that previous procedure. We will perform an upper endoscopy with possible dilation. She was explained alternatives, risk, benefits including outstanding bleeding, infection, sepsis, perforation, need for injured and . She have an ASA of 3. I have examined the patient and the H&P has been reviewed. There are no clinical changes since date of exam.
--- NOTE | 2024-03-20 13:45 | EGD_PTH ---
PATIENT: DEWEY HORTA LOC: EN U#:[id number] AGE/SX: 63/F ROOM: RE03/20/[address]: Dr. Andrez Pitts DO : 1960 BED: DIS: 03/20/2024 SPEC #: [id number] RECD: 03/20/24 14:17 STATUS: SAMREEN YOMAIRA #: [id number] THALIA: 03/20/24 13:[address]: Andrez Pitts DEPT: SURGICAL PATHOLOGY RECD BY: Mary Ruiz ENTERED: 03/23/24 09:10 SP TYPE: EGD BIOPSY OT DR: Ciara Dhillon, MILK PICKUP DRIVER-C Tissues: Esophagus, NOS Procedures: Special Stain Group I Surgery Specimen Level IV Alcian Blue/PAS (control) HEADER OPERATION: EGD with biopsy, dilation PRE-OP DIAGNOSIS: Diarrhea, Crohn's disease, pancreatic insufficiency, difficulty swallowing TISSUE SUBMITTED: Distal esophagus biopsy MICROSCOPIC DIAGNOSIS Distal esophagus, biopsy: Fragments of gastroesophageal mucosa with chronic inflammation. Intestinal metaplasia (goblet cell metaplasia) not identified. See comment. 03/24/2024 COMMENT Alcian blue/PAS stain with matched control is used in the evaluation of the specimen. MICROSCOPIC DESCRIPTION Slides are reviewed. GROSS DESCRIPTION Received in fixative is one container labeled with the patient's name and designated Distal esophagus biopsy. The specimen consists of multiple irregular fragments of light akhtar soft tissue that in aggregate measure 0.6 x 0.6 x 0.1 cm. The specimen is totally submitted in one cassette. 03/23/2024 TC:3 CPT:63947,89772
--- NOTE | 2024-03-20 13:56 | OP.CCLET_ITS ---
03/20/2024 Sinai Arriola Re : Upper GI endoscopy procedure for Marimar Wang Dear Jacquie This procedure was performed on Wednesday, March 20, 2024. My impressions and recommendations are as follows: Impressions : - Moderate Schatzki ring. Dilated. - Z-line irregular, 40 cm from the incisors. Biopsied. - Medium-sized hiatal hernia. - No gross lesions in the first portion of the duodenum. Recommendations : - Discharge patient to home. - Resume previous diet. - Continue present medications. - Await pathology results. My findings are described in the full procedure note, which is enclosed. If I can be of further assistance, please feel free to contact me at . Sincerely, Andrez Pitts, 03/20/2024 1:55:59 PM This report has been signed electronically.
--- NOTE | 2024-03-20 13:56 | OP.EGD_ITS ---
Patient Name: Marimar Wang Procedure Date: 03/20/2024 1:32 PM Date of : 1960 Age: 63 Procedure: Upper GI endoscopy Indications: Dysphagia Providers: DO Magan Jenkins MD: Sinai Arriola Medicines: Monitored Anesthesia Care Patient Profile: This is a 63 year old female. Refer to note in patient chart for documentation of history and physical. Patient has symptoms of dysphagia with solids. Complications: No immediate complications. Procedure: Pre-Anesthesia Assessment: - Prior to the procedure, a History and Physical was performed, and patient medications and allergies were reviewed. The patient is competent. The risks and benefits of the procedure and the sedation options and risks were discussed with the patient. All questions were answered and informed consent was obtained. Patient identification and proposed procedure were verified by the physician in the pre-procedure area. Mental Status Examination: alert and oriented. Airway Examination: normal oropharyngeal airway and neck mobility. Respiratory Examination: clear to auscultation. CV Examination: normal. Prophylactic Antibiotics: The patient does not require prophylactic antibiotics. Prior Anticoagulants: The patient has taken no anticoagulant or antiplatelet agents except for NSAID medication. ASA Grade Assessment: II - A patient with mild systemic disease. After reviewing the risks and benefits, the patient was deemed in satisfactory condition to undergo the procedure. The anesthesia plan was to use monitored anesthesia care (MAC). Immediately prior to administration of medications, the patient was re-assessed for adequacy to receive sedatives. The heart rate, respiratory rate, oxygen saturations, blood pressure, adequacy of pulmonary ventilation, and response to care were monitored throughout the procedure. The physical status of the patient was re-assessed after the procedure. After obtaining informed consent, the endoscope was passed under direct vision. Throughout the procedure, the patient's blood pressure, pulse, and oxygen saturations were monitored continuously. The gastroscope was introduced through the mouth, and advanced to the second part of duodenum. The upper GI endoscopy was accomplished without difficulty. The patient tolerated the procedure well. Scope In: 1:45:21 PM Scope Out: 1:50:54 PM Total Procedure Duration Time 0 hours 5 minutes 33 seconds Findings: A moderate Schatzki ring was found at the gastroesophageal junction. A guidewire was placed and the scope was withdrawn. Dilation was performed with a Savary dilator with no resistance at 60 Fr. The dilation site was examined and showed moderate improvement in luminal narrowing. Estimated blood loss was minimal. The Z-line was irregular and was found 40 cm from the incisors. Biopsies were taken with a cold forceps for histology. Verification of patient identification for the specimen was done. Estimated blood loss was minimal. A medium-sized hiatal hernia was present. No other significant abnormalities were identified in a careful examination of the stomach. No gross lesions were noted in the first portion of the duodenum. Impression: - Moderate Schatzki ring. Dilated. - Z-line irregular, 40 cm from the incisors. Biopsied. - Medium-sized hiatal hernia. - No gross lesions in the first portion of the duodenum. Recommendation: - Discharge patient to home. - Resume previous diet. - Continue present medications. - Await pathology results. Procedure Code(s): --- Professional --- 87516, Esophagogastroduodenoscopy, flexible, transoral; with insertion of guide wire followed by passage of dilator(s) through esophagus over guide wire 93889, 59,51, Esophagogastroduodenoscopy, flexible, transoral; with biopsy, single or multiple CPT copyright 2021 [employer]. All rights reserved. The codes documented in this report are preliminary and upon group exercise manager review may be revised to meet current compliance requirements. Andrez Pitts DO 03/20/2024 1:55:59 PM This report has been signed electronically. Number of Addenda: 0 Note Initiated On: 03/20/2024 1:32 PM
--- NOTE | 2024-03-20 13:59 | PCM.POST.ANE ---
Anesthesia: Postop Eval I Current Vital Signs Temperature: 98.1 F Pulse Rate: 74 Blood Pressure: 147/66 Respiratory Rate: 16 Pulse Ox: 98 Oxygen Delivery Method: Room Air Assessment Airway patent: Yes Spontaneous unlabored respirations: Yes Mental status: Awake and Calm nausea: No Vomiting: No Anesthesia Complication: No Fluid Hydration Crystalloid volume administer (ml): 400 Total IV fluid infused: 400 Progress Note Anesthesia document: Postop Eval 1 completed: Yes
--- NOTE | 2024-03-20 17:07 | PCM.POSTANE2 ---
Anesthesia Postop Eval I Sum Postop Eval Completion status Anesthesia document: Postop Eval 1 completed: Yes Anesthesia Postop Eval I Summary Anesthesia Postop Eval I Summary: Anesthesia Postop Eval I: Assessment Summary Airway patent Yes 03/20/24 14:00 [email or web address] Spontaneous unlabored Yes 03/20/24 14:00 [email or web address] respirations Mental status Awake,Calm 03/20/24 14:00 [email or web address] nausea No 03/20/24 14:00 [email or web address] Vomiting No 03/20/24 14:00 [email or web address] Anesthesia Postop Eval I: Fluid Summary Crystalloid volume administer 400 03/20/24 14:00 [email or web address] (ml) Colloids volume administered ( ml) Blood Product volume administered (ml) Total IV fluid infused 400 03/20/24 14:00 [email or web address] Anesthesia Postop Eval I: Summary Notes Anesthesia Complication No 03/20/24 14:00 [email or web address] Anesthesia Complication Comment: Post-operative progress note Anesthesia: Postop Eval II Evaluation Mental status: Awake and Calm Pain Level: 0 nausea: No Vomiting: No Complications Anesthesia Complication: No
== END 2024-03-20 14:50 | disposition home or self-care (01) ==
LOC: EN 12:40 → AC 12:42
PROVIDERS: PCP Nurse Practitioner Family; Referring Provider Nurse Practitioner Family; Visit Provider Internal Medicine Gastroenterology
PROC: 0DJ08ZZ Inspection of Upper Intestinal Tract, Via Natural or Artificial Opening Endoscopic (ICD-10-PCS; CPT 43235; principal; 2024-03-20 13:40)
DX: K21.00 Gastro-esophageal reflux disease with esophagitis, without bleeding (principal); M06.9 Rheumatoid arthritis, unspecified; K50.90 Crohn's disease, unspecified, without complications; I50.32 Chronic diastolic (congestive) heart failure; K44.9 Diaphragmatic hernia without obstruction or gangrene; M35.00 Sjogren syndrome, unspecified; Z79.899 Other long term (current) drug therapy; K86.89 Other specified diseases of pancreas; K22.2 Esophageal obstruction; J45.909 Unspecified asthma, uncomplicated; F32.A Depression, unspecified; F41.9 Anxiety disorder, unspecified; E78.5 Hyperlipidemia, unspecified; Z87.19 Personal history of other diseases of the digestive system
CPT/HCPCS: 43248; 43239; 88305; 88312; J7120; C1769; J2405

== ENCOUNTER → 2024-03-25 | Outpatient (CLI) | payer MEDICARE, SELFPAY ==
--- NOTE | 2024-03-25 07:23 | US_ITS ---
STUDY: ABDOMINAL ULTRASOUND - RIGHT UPPER QUADRANT REASON FOR VISIT: Female, 63 years old RUQ pain TECHNIQUE: Ultrasound evaluation of the right upper quadrant was performed with real-time and static mendez-scale imaging. TECHNICAL QUALITY: Adequate. COMPARISON: Comparison is made with prior CT scan of the abdomen dated October 15, 2022. FINDINGS: Liver: The liver measures 15.6 cm. There is increased echogenicity consistent with fatty infiltration. The bile ducts are within normal limits. There is hepatic color flow. The direction of portal flow is hepatopetal. There is no demonstrated mass lesion. Gallbladder: Normal distended gallbladder. The gallbladder wall measures 2.0 mm. There is a negative sonographic Mae''s sign. There is no pericholecystic fluid. There are no gallstones. Common Bile Duct (C.B.D.): The common bile duct measures 6.5 mm. Pancreas: Normal size of the head, body and tail of the pancreas. There is normal echogenicity of the pancreas. There is no demonstrated pancreatic mass or cyst. Right Kidney: Normal size of the right kidney. The right kidney measures 10.3 cm x 4.8 cm x 4.3 cm. Normal renal cortex. The right cortex measures 1.4 cm. There is no demonstrated renal mass or cyst. There is no right hydronephrosis. US/Abdomen Limited IMPRESSION: Mild degree of fatty infiltration of the liver. Electronically Signed: Juan Antonio Becerra MD at 10:25 EDT ,
== END | disposition home or self-care (01) ==
LOC: US 07:23
PROVIDERS: PCP Nurse Practitioner Family; Referring Provider Internal Medicine Gastroenterology; Visit Provider Internal Medicine Gastroenterology
DX: R10.11 Right upper quadrant pain (principal)
CPT/HCPCS: 76705

== ENCOUNTER 2024-06-06 01:51 | Emergency (ER) | payer MEDICARE, SELFPAY ==
[2024-06-06 01:53] VITALS: BP 129/68; PULSE 98; RESP 18; TEMP 36.4; O2SAT 99; BMI 35.5
[2024-06-06 01:55] VITALS: O2SAT 99
[2024-06-06] MEDS: oxyCODONE 5 MG Tablet PO (02:29)
[2024-06-06 03:52] VITALS: RESP 18
[2024-06-06 05:06] VITALS: BP 107/62; PULSE 90; RESP 16; TEMP 36.6; O2SAT 98
== END 2024-06-06 05:07 | disposition home or self-care (01) ==
PROVIDERS: Emergency Provider Emergency Medicine; PCP Nurse Practitioner Family; Visit Provider Emergency Medicine
DX: S09.90XA Unspecified injury of head, initial encounter (principal); M06.9 Rheumatoid arthritis, unspecified; K50.90 Crohn's disease, unspecified, without complications; I11.0 Hypertensive heart disease with heart failure; I50.32 Chronic diastolic (congestive) heart failure; J44.9 Chronic obstructive pulmonary disease, unspecified; S20.219A Contusion of unspecified front wall of thorax, initial encounter; S60.222A Contusion of left hand, initial encounter; E78.5 Hyperlipidemia, unspecified; Z87.891 Personal history of nicotine dependence; Z96.642 Presence of left artificial hip joint; F41.9 Anxiety disorder, unspecified; F32.A Depression, unspecified; Z79.02 Long term (current) use of antithrombotics/antiplatelets; W19.XXXA Unspecified fall, initial encounter
CPT/HCPCS: 70450; 71101; 72072; 72100; 72125; 73130; 73502; 99282

== ENCOUNTER → 2024-06-09 | Outpatient (CLI) | payer MEDICARE, MEDICAID, SELFPAY | END | disposition home or self-care (01) | PROVIDERS: PCP Nurse Practitioner Family; Referring Provider Nurse Practitioner Family; Visit Provider Nurse Practitioner Family | DX: R93.89 Abnormal findings on diagnostic imaging of other specified body structures (principal) | CPT/HCPCS: 71046 ==

== ENCOUNTER 2024-09-02 10:32 | Observation (INO) | payer MEDICARE, SELFPAY ==
[2024-09-02] VITALS (11 sets, daily range): BP systolic 115–147; BP diastolic 40–90; PULSE 78–92; RESP 14–20; TEMP 35.8–37.2; O2SAT 95–100; BMI 34.7; BMI 37.1
--- NOTE | 2024-09-02 | IMM_PTH ---
PATIENT: DEWEY HORTA LOC: MS3 U#:[id number] AGE/SX: 64/F ROOM: HI318 RE09/02/[address]: Dr. Gee Garcia MD : 1960 BED: 1 DIS: 09/03/2024 SPEC #: [id number] RECD: 09/04/24 11:49 STATUS: SAMREEN REJc #: [id number] THALIA: 09/02/24 00:[address]: Gee Garcia DEPT: IMMUNOHISTOCHEMISTRY RECD BY: Wang Jerez ENTERED: 09/04/24 11:49 SP TYPE: IMMUNO OTHR DR: iCara Dhillon, [employer]-[facility]a Tissues: Perianal tissue Procedures: p16 (initial) KI-67 (add) PHYSICIAN & INSTITUTION [place] [id number] SPECIMEN INFORMATION: Tissue Source: Perianal mass biopsy Clinical Info: Perirectal abscesses Specimen Number: [id number] CPT code: 89539,11622 METHODOLOGY: Deparaffinized sections of prefer/formalin-fixed tissue or PAP/DQ stained slides are incubated with monoclonal/polyclonal antibodies/oligonucleotide probes. Localization is made via biotin free immunoperoxidase method. Appropriate controls are performed and reacted as expected. Results on target cell population are indicated in the following table: RESULTS: ANTIBODY / CLONE RESULT P16 (E6H4) positive, block staining Ki-67 (30-9) positive, high These tests were developed and their performance characteristics determined by [facility]. They may not have been cleared or approved by the U.S. Food and Drug Administration. The FDA has determined that such clearance or approval is not necessary. The above immunohistochemical/dualISH markers are ordered and reviewed by the Pathologist. 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 ALEXI. 09/07/2024
--- NOTE | 2024-09-02 11:19 | RAD_ITS ---
EXAM: XR Chest, 2 Views CLINICAL INDICATION: TECHNIQUE: Frontal and lateral views of the chest. COMPARISON: No relevant prior studies available. FINDINGS: LUNGS AND PLEURAL SPACES: Unremarkable. No consolidation. No pneumothorax. HEART: Unremarkable. No cardiomegaly. MEDIASTINUM: Unremarkable. Normal mediastinal contour. BONES/JOINTS: Unremarkable. No acute fracture. RAD/Chest PA and Lateral IMPRESSION: No acute cardiopulmonary process. Reading [facility]
[2024-09-02 11:36] LABS: Absolute Lymphocyte Count 0.64 X10^3/uL (0.83-4.51); Absolute Neutrophil Count 9.5 X10^3/uL (2.0-7.7); Basophil# 0.09 X10^3/uL; Basophil% 0.8 % (0-1); Eosinophil# 0.04 X10^3/uL; Eosinophils% 0.4 % (0-5); Hematocrit 34.1 % (37-47); Hemoglobin 10.4 g/dL (12.0-15.0); Lymphocyte # 0.64 X10^3/ul (0.83-4.51); Lymphocyte % 5.7 % (19-41); Mean Corp Hgb Conc 30.5 g/dL (32-36); Mean Corpuscular Hgb 25.7 pg (27.0-32.0); Mean Corpuscular Volume 84.4 fL (81-99); Monocyte# 0.98 X10^3/uL; Monocyte% 8.7 % (0-10); NRBC Flagged by Analyzer 0 % (0-5); Neutrophil # 9.47 X10^3/uL (2.7-7.7); Neutrophil % 83.8 % (47-70); Platelet Count 247 K/mm3 (150-450); RBC Distribution Width CV 17.3 % (11.6-14.6); RBC Distribution Width SD 53.5 fl (35.1-43.9); Red Blood Count 4.04 M/mm3 (4.2-5.4); White Blood Count 11.3 K/mm3 (4.4-11.0)
[2024-09-02 11:56] LABS: ALB/GLOB Ratio 0.7 RATIO (0.9-2.4); AST(SGOT) 18 U/L (15-37); Alanine Aminotransfer ALT/SGPT 17 U/L (13-56); Albumin, Serum 2.7 g/dL (3.2-5.0); Alkaline Phosphatase 87 U/L (45-117); Anion Gap 9 (5-15); BUN 10 mg/dL (7-18); BUN/Creat Ratio 13.9 RATIO (10-20); Calcium,Total 8.7 mg/dL (8.5-10.1); Chloride 102 mmol/L (98-107); Creatinine, Serum 0.72 mg/dL (0.55-1.02); EST Glomerular Filtration Rate 86 mL/min (>60); Est Glom Filt Rate - Afr Amer 104 mL/min (>60); Estimated Creatinine Clearance 74.18 ml/min; Glucose 91 mg/dL (74-106); Potassium 3.3 mmol/L (3.5-5.1); Protein, Total 6.7 g/dL (6.4-8.2); Sodium Level 134 mmol/L (136-145)
--- NOTE | 2024-09-02 12:06 | CT_ITS ---
PROCEDURE: ABDOMEN/PELVIS W IV CONT ONLY REASON FOR EXAM: Concern for rectal abscess. TECHNIQUE: Abdomen and pelvis CT with intravenous contrast. COMPARISON: None. FINDINGS: Lung bases: Clear Liver: Unremarkable. Gallbladder: Unremarkable. Spleen: Unremarkable. Pancreas: Unremarkable. Adrenals: Unremarkable. Kidneys: Unremarkable. Bladder: Unremarkable. Reproductive Organs: Surgically absent uterus. Bowel: Postsurgical changes of Vanessa fundoplication. Normal caliber colon and small bowel. Appendix: Normal. Lymph nodes: No suspicious lymph node enlargement. Vasculature: Moderate atherosclerosis. Normal caliber abdominal aorta. Peritoneum / Retroperitoneum: No ascites. No free air. Bones: Left hip arthroplasty. Right perineum thick-walled 5.4 x 1.6 cm fluid collection with adjacent fat stranding most compatible with an abscess. CT/Abdomen/Pelvis W IV Cont ONLY IMPRESSION: Right perineum fluid collection most compatible with an abscess. One or more dose reduction techniques were used (e.g., Automated exposure contr ol, adjustment of the mA and/or kV according to patient size, use of iterative reconstruction technique). Reading Location: [id number]
[2024-09-02 12:34] LABS: Bacteria 0 SEEN /hpf (None Seen); Mucous, Urine 0 SEEN /hpf (<or=2+); Red Blood Cells-Urine 0 SEEN /hpf (0-5)
[2024-09-02 12:35] LABS: Color, Urine Yellow (Yellow); Glucose, Dipstick Normal (Normal); Ketone-Dipstick Negative (Negative); Leukocyte Esterase-Dipstick 25 /ul (Negative); Nitrite-Dipstick Negative (Negative); Occult Blood-Urine Negative /ul (Negative); Protein-Dipstick 30 mg/dl (Negative); Specific Gravity, Urine 1.015 (1.002-1.030); Urine Bilirubin Dipstick Negative (Negative); Urine Clarity Clear (Clear); Urine Urobilinogen 1 mg/dl (Normal)
--- NOTE | 2024-09-02 12:43 | EX.ED.DYSGE1 ---
HPI History of Present Illness Chief Complaint: Abscess Informant: patient Narrative Narrative: Patient is a 64-year-old female with history of pancreatic insufficiency, recent diagnosis of Crohn's disease (on budesonide and Bentyl), fibromyalgia and rheumatoid arthritis (on abatacept and Arava), pancreatic insufficiency (on Creon) presenting with increased rectal pain and concern for rectal abscess. Denies any history of this. No she has been having an increasing pain of the right perirectal area for the past week. She states for the past 3 to 4 days she is also felt like she has been leaking stool. She notes her bowel movements have been normal. She denies any known history of fistulous. She has not had any fever but is also had a cough for the past 3 to 4 days and chills. She has had some nausea but this is chronic for her. Denies any abdominal pain acutely. Does follow with Dr. Pitts GI. Notes her daughter is also been sick. Reports some increase sinus drainage. No other complaints or concerns reported at this time. [facility] Medical History Mass of anus Perirectal abscess History of Crohn's disease Psoriatic arthritis Psoriasis Internal derangement of right knee Wears glasses Post-menopausal Depression Anxiety Ambulates with cane Injury of back Difficulty swallowing History of IBS History of hiatal hernia Former smoker Shortness of breath on exertion Chronic cough History of echocardiogram History of stress test Hypertension Cardiology follow-up encounter History of CHF (congestive heart failure) History of irregular heartbeat Acute pharyngitis, unspecified URI (upper respiratory infection) Contact with or suspected exposure to other viral communicable disease History of partial replacement of left hip joint using bipolar prosthesis Vitamin D deficiency HLD (hyperlipidemia) Insomnia Dry eye Regular astigmatism, bilateral PVCs (premature ventricular contractions) Coronary artery stenosis Chronic diastolic CHF (congestive heart failure) Iron malabsorption Osteoarthritis Lumbar spondylosis Osteoporosis Congenital cataract Intermittent palpitations Nausea TIA (transient ischemic attack) Acute maxillary sinusitis, unspecified Acute ethmoidal sinusitis, unspecified Acute frontal sinusitis, unspecified COPD exacerbation Foreign body in conjunctival sac, left eye, initial encounter Acute bacterial conjunctivitis Influenza A Acute bronchitis Back pain Limb weakness Asthma Anemia Arthritis Home Medications ?Medication ?Instructions ?Recorded ?Last Taken ?Type albuterol sulfate 90 mcg/actuation 2 puff inhalation Q4H PRN PRN 03/13/15 Unknown History aerosol inhaler Shortness Of Breath clopidogrel 75 mg tablet 75 mg PO QHS BLOOD THINNER 03/13/15 09/01/24 History fluoxetine 20 mg capsule 60 mg PO QHS MENTAL HEALTH 12/13/15 09/01/24 History peg [id number] 1 1 drp OP 4X/DAY DRY EYES 11/13/17 03/19/24 History %-0.2 %-0.2 % eye drops (Dry Eye Relief) leflunomide 20 mg tablet (Arava) 20 mg PO QHS RA 03/22/18 09/01/24 History amlodipine 5 mg tablet 7.5 mg PO QHS BP 08/15/22 09/01/24 History mometasone 50 mcg/actuation nasal 2 spray intranasal .QAM ALLERGIES 08/15/22 09/01/24 History spray ergocalciferol (vitamin D2) 1,250 1,250 mcg PO .EVERY OTHER WEEK 11/05/22 08/26/24 History mcg (50,000 unit) capsule (Vitamin SUPPELEMNT D2) mecobalamin (vitamin B12) 1,000 1,000 mcg sublingual QHS SUPPLEMENT 12/06/22 09/01/24 History mcg disintegrating tablet,sublingual abatacept 50 mg/0.4 mL 50 mg subcut QMONTH RA 12/17/22 07/02/24 History subcutaneous syringe (Orencia) polyethylene glycol 3350 17 4 g PO PRN PRN Constipation 01/09/23 Unknown History gram/dose oral powder (Miralax) [id number] See Rx Instructions PO .COMPLEX 09/25/23 09/01/24 Rx 36,000-114,000-180,000 unit #300 caps capsule,delay rel (Creon) acetaminophen 500 mg tablet 1,000 mg PO Q6H PRN fever or pain 11/15/23 09/01/24 History atorvastatin 80 mg tablet 80 mg PO QHS 11/15/23 09/01/24 History hydrocortisone 2.5 % topical cream 1 applic TN BID PRN Crohn's 11/29/23 Unknown Rx with perineal applicator disease #30 grams meclizine 25 mg tablet 25 mg PO DAILY PRN PRN dizziness 03/17/24 Unknown History budesonide 3 mg 6 mg (2 x 3 mg) PO DAILY #60 caps 04/09/24 09/01/24 Rx capsule,delayed,extended release pantoprazole 40 mg tablet,delayed 40 mg PO DAILY #90 TABLETS 05/01/24 09/01/24 Rx release promethazine 25 mg tablet 25 mg PO Q6H PRN PRN Nausea #60 05/11/24 09/01/24 Rx tabs dicyclomine 10 mg capsule 10 mg PO TID PRN for abdominal 08/10/24 09/01/24 Rx pain #90 caps alprazolam 1 mg tablet 1 mg PO TID 30 days #90 tabs 08/31/24 09/01/24 Rx bupropion HCl (smoking deter) 150 150 mg PO QHS 09/02/24 09/01/24 History mg tablet,12 hr sustained-release(smoking deterrent) methylprednisolone 4 mg tablets in PO UD 09/02/24 09/01/24 History a dose pack tramadol 50 mg tablet 50 mg PO Q6H PRN PRN pain 09/02/24 09/01/24 History Allergy/AdvReac Type Severity Reaction Status Date / Time doxycycline calcium (From Allergy Anaphylaxis Verified 09/02/24 15:44 Vibramycin) doxycycline hyclate (From Allergy Anaphylaxis Verified 09/02/24 15:44 Vibramycin) doxycycline monohydrate Allergy Anaphylaxis Verified 09/02/24 15:44 (From Vibramycin) NSAIDS (Non-Steroidal Allergy Anaphylaxis Verified 09/02/24 15:44 Anti-Inflamma duloxetine (From Cymbalta) AdvReac HEADACHE Verified 09/02/24 15:44 AND UPSET STOMACH hydrocodone bitartrate (From AdvReac STOMACH Verified 09/02/24 15:44 Vicodin) UPSET hydromorphone HCl (From AdvReac Vomiting Verified 09/02/24 15:44 Dilaudid) morphine AdvReac Vomiting Verified 09/02/24 15:44 Family History Mother Asthma Hypertension Kidney disease Father Asthma Myocardial infarction Daughter Asthma Diabetes Hypertension Sister Asthma Hypertension Surgical History History of total right knee replacement (TKR) S/P total knee arthroplasty Hx of esophagogastroduodenoscopy History of cardiac catheterization S/P repair of paraesophageal hernia History of Vanessa fundoplication H/O adenoidectomy History of tonsillectomy H/O hernia repair History of total left knee replacement Hx of section H/O shoulder surgery Social History household members: family housing: house Smoking Status: Former smoker quit date: 07/29/13 alcohol intake: never substance use type: does not use ROS ROS ED Constitutional Constitutional ED: Reports chills; Denies fever(s) Eyes Eyes: Denies change in vision ENT ENT ED: Reports sore throat and other Details: Postnasal drip Cardiovascular Cardiovascular: Denies chest pain Respiratory/Chest Respiratory/Chest: Reports cough; Denies dyspnea Gastrointestinal Gastrointestinal: Reports nausea and other Details: Perirectal pain ; Denies abdominal pain, constipation, diarrhea or vomiting Genitourinary Genitourinary ED: Denies dysuria or urinary frequency Integumentary Denies rash Neurologic Neurologic: Reports weakness; Denies paresthesias Psychiatric Psychiatric: Reports anxiety EXAM Physical Exam Const Vital Signs: 09/02/24 10:33 Temperature 96.5 F L Temperature Source Temporal Pulse Rate 88 Respiratory Rate 16 Blood Pressure 142/90 H Blood Pressure Mean 107 Pulse Ox 100 Oxygen Delivery Method Room Air Positive well nourished and well developed General Appearance ED: well developed and NAD HEENT Reports TM's clear and moist mucous membranes HEENT Narrative: Normal oropharynx Tympanic Membrane ED: Yes TM's clear Eyes PERRL Neck supple Chest Wall inspection of chest normal Resp normal respiratory effort and clear to auscultation bilaterally Resp Narrative: Intermittent dry cough Auscultation: Negative for rhonchi or wheezes Cardio regular rate, regular rhythm and no murmurs GI normal to inspection, nondistended, normoactive bowel sounds and non-tender GI Narrative: Chaperoned rectal exam performed. Patient has nonthrombosed nonenlarged hemorrhoids. She has significant tenderness to palpation on the right perirectal area but I do not appreciate any obvious fluctuance. The right perirectal area is harder to the touch. No overlying redness. No drainage is seen however there is this brown thick discharge present in the perirectal area not sure if this is purulence or stool. Patient does not tolerate rectal exam. Extremity normal to inspection General Extremety ED: Negative for edema General Extremity: Negative for edema Neuro oriented x3 Sensorium / Orientation: alert Motor Exam: general weakness Psych mental status grossly normal Skin no rashes or lesions noted and no wounds MDM MDM MDM Narrative Medical decision making narrative: Patient is evaluated for 1 week of worsening perirectal pain as well as a couple days of cough. She is immunosuppressed. Differential includes perirectal abscess, enterocolonic fistula given she has a history of Crohn disease, suspicion for Crohn's exacerbation, pneumonia, influenza and other viral illness given her cough. CT of the abdomen pelvis obtained for better evaluation of the perirectal region as well as the GI tract given her history of Crohn's. In addition obtain chest x-ray (reviewed by myself which does not show any acute process) as well as radiology. CBC, CMP and urinalysis also obtained. Patient is a mild leukocytosis of 11.3. She is positive for COVID-19. This likely the cause of her acute URI symptoms. CT of the abdomen pelvis shows right peritoneal fluid collection most compatible with an abscess. I did discuss the patient the performing bedside I&D but she does not think she be able to tolerate it. Patient was given a dose of IV fentanyl for pain control. Case is discussed with general surgery, Dr. Garcia, who reviews the images and we discussed the case. He will admit to his service for plan of intraoperative I&D. Patient started on vancomycin and Zosyn in the emergency room. Patient will be admitted for further management of this pararectal abscess and also monitoring of her COVID-19. At this time I do not think she requires admission for the COVID itself that she is not hypoxic. Lab Data Attestation: I reviewed the patient's lab results. Labs: Laboratory Results - last 24 hr 09/02/24 09/02/24 11:31 12:24 WBC 11.3 H RBC 4.04 L Hgb 10.4 L Hct 34.1 L MCV 84.4 MCH 25.7 L MCHC 30.5 L RDW Std Deviation 53.5 H RDW Coeff of [place] 17.3 H Plt Count 247 MPV 11.0 Immature Gran % (Auto) 0.600 Neut % (Auto) 83.8 H Lymph % (Auto) 5.7 L [place] % (Auto) 8.7 Eos % (Auto) 0.4 Baso % (Auto) 0.8 Absolute Neuts (auto) 9.5 H Absolute Lymphs (auto) 0.64 L Nucleated RBC % 0 Sodium 134 L Potassium 3.3 L Chloride 102 Carbon Dioxide 24.0 Anion Gap 9 BUN 10 Creatinine 0.72 Estim Creat Clear Calc 74.18 Est GFR (MDRD) Af Amer 104 Est GFR (MDRD) Non-Af 86 BUN/Creatinine Ratio 13.9 Glucose 91 Calcium 8.7 Total Bilirubin 0.30 AST 18 ALT 17 Alkaline Phosphatase 87 Total Protein 6.7 Albumin 2.7 L Globulin 4.0 Albumin/Globulin Ratio 0.7 L Urine Color Yellow Urine Clarity Clear Urine pH 6.0 Ur Specific [place] 1.015 Urine Protein 30 H Urine Glucose (UA) Normal Urine Ketones Negative Urine Occult Blood Negative Urine Nitrite Negative Urine Bilirubin Negative Urine Urobilinogen 1 H Ur Leukocyte Esterase 25 H Urine RBC 0 SEEN Urine WBC 0-5 SEEN Ur Squamous Epith Cells 0-5 SEEN Uric Acid Crystals 1+ Urine Bacteria 0 SEEN Hyaline Casts 0-5 SEEN Urine Mucus 0 SEEN Radiography Diagnostic Testing: Clinical Impression(s) from Imaging Studies Chest X-Ray 09/02/24 11:19 IMPRESSION: No acute cardiopulmonary process. Reading Location: [facility] Abdomen/Pelvis CT 09/02/24 12:06 IMPRESSION: Right perineum fluid collection most compatible with an abscess. One or more dose reduction techniques were used (e.g., Automated exposure control, adjustment of the mA and/or kV according to patient size, use of iterative reconstruction technique). Reading Location: [facility] Management Discussion w/another healthcare provider: Film Reader Discharge Plan Dx/Rx/DC Orders Clinical Impression: Abscess, perirectal, Crohn disease, COVID-19 virus infection, Immunosuppressed status Disposition Disposition: Acute Care Hospital [facility] Discharge Date/Time: 09/02/24 15:23
[2024-09-02 12:45] LABS: Hyaline Cast 0-5 SEEN /lpf (0-5); Squamous Epithelial Cells - UA 0-5 SEEN /hpf (5-10); White Blood Cells 0-5 SEEN /hpf (0-5)
[2024-09-02 12:48] LABS: Uric Acid Crystals Ur 1+ /hpf (<or=1+)
[2024-09-02] MEDS: Ondansetron 4 MG/2 ML Vial IV ×2 (14:03→21:45)
[2024-09-02] MEDS: fentaNYL 100 MCG/2 ML Ampul 50 MCG IV (14:04)
--- NOTE | 2024-09-02 15:25 | PRE.ANES_ITS ---
ASA Classification* ASA Classification ASA Classification: 3 and E Assessment & Plan Anesthesia* Anesthesia Assessment Anesthesia Assessment: Discussed sedation and/or anesthesia options, risks, benefits, and alternatives with patient/parents/legal guardian/POA. Questions invited. The patient/parents/legal guardian/POA seems to understand and agrees to proceed with anesthesia plan. Reviewed the physical assessment, medical history, allergy history and patient home medications list prior to surgery/procedure/anesthetic and documented any changes. Performed airway and anesthesia risk assessments. Anesthesia Type Anesthesia Type: MAC (patient with Covid infection. chest xray no cardio pulmonary acute process. On Plavix) Anesthesia Focused Assessment* Temperature: 97.9 F Pulse Rate: 84 Blood Pressure: 147/50 Respiratory Rate: 16 Pulse Ox: 96 Airway Assessment Mouth opens: >3 cm Mallampati Score: II Focused Labs Anesthesia Preop lab: CBC WBC 11.3 K/mm3 (4.4-11.0) H 09/02/24 11: 5 RBC 4.04 M/mm3 (4.2-5.4) L 09/02/24 11:09/02/24 Hgb 10.4 g/dL (12.0-15.0) L 09/02/24 11: 5 Hct 34.1 % (37-47) L 09/02/24:09/02/24 Plt Count 247 K/mm3 (150-450) 09/02/24 11:09/02/24 CHEMISTRY Potassium 3.3 mmol/L (3.5-5.1) L 09/02/24:09/02/24 Sodium 134 mmol/L (136-145) L 09/02/24 11:09/02/24 Magnesium 1.9 mg/dL (1.6-2.6) 01/11/23 15:01/11/23 BUN 10 mg/dL (7-18) 09/02/24:09/02/24 Creatinine 0.72 mg/dL (0.55-1.02) 09/02/24 11:09/02/24 Glucose 91 mg/dL (74-106) 09/02/24 11:09/02/24 TSH 0.80 uIU/mL (0.358-3.74) 11/21/15 16:47 COAG PT 14.0 SECONDS (11.7-14.9) 01/11/23 15:06 Pre-Assessment Diagnosis/Proposed Procedure Planned Operative Procedure(s): I&D jeb Rectal abscess Anesthesia History 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 When Was Last Pacemaker Check QUESTION #4 FULL TEXT: You/Your Family Experience fever (hyperthermia) with Anesthesia Last Oral Intake Last Oral intake: Last Oral Intake NPO since Meds taken in AM with sips of water? Meds patient instructed to last ate at 1930 yesterday 09/02/24 14:43 take am of surgery evening. Patient had coffee and diet pepsi earlier today PONV PONV - cuffing machine operator: PONV - cuffing machine operator Female HX of Motion Sickness HX of N/V After Surgery Non-Smoker Duration of Surgery greater than 60 minutes Number of Risk Factors PONV Score Height & Weight Height & Weight: Anesthesia: Height & Weight Height 5 ft 3 in 09/02/24 14:43 Weight: 88.949 kg 09/02/24 14:43 Body Mass Index (BMI) 34.7 09/02/24 14:43 Respiratory Assessment Respiratory Assessment - cuffing machine operator: Respiratory Tract Infection Hx - cuffing machine operator Hx Respiratory Tract Infection Yes: covid 09/02/24 14:43 STOP Sleep Apnea STOP Sleep Apnea - cuffing machine operator: STOP Sleep Apnea - cuffing machine operator Hx Hypertension Yes 09/02/24 14:43 Hx Sleep Apnea No 09/02/24 14:43 CPAP No 03/20/24 13:57 BIPAP No 03/17/24 08:51 Do you snore loudly (louder No 09/02/24 14:43 than talking or can be heard Do you often feel tired/ Yes 09/02/24 14:43 fatigued/ sleepy during daytime? Has anyone observed you stop No 09/02/24 14:43 breathing during sleep? STOP Results Positive 09/02/24 14:43 QUESTION #5 FULL TEXT : Do you snore loudly (louder than talking or can be heard through closed doors)? Tobacco Use History Tobacco Use History - cuffing machine operator: Tobacco Use History - cuffing machine operator Tobacco Use Smoking Status Former smoker 09/02/24 10:54 Hx Tobacco Use No 03/17/24 08:51 Years Smoking Packs Smoked per Day Smoking Cessation Date was Yes - quit smoking within 15 09/02/24 10:54 within the last 15 years years Hx Smoking Cessation Date Hx Smoking Cessation No 09/02/24 10:54 Counseling Hematologic Medial History Hematologic Hx - cuffing machine operator: Hematologic Medical Hx - dietary director Hx of Blood Transfusion Hx of Transfusion in last 3 Months Date of Last Transfusion (if within last 3 months) Ever experience any problems with transfusion(s)? Specify any problems Hx of Preganancy in last 3 Months Nurse Filling Out Transfusion & Questions: Date: Time: Patient unable to answer at this time (ie. 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 History - cuffing machine operator: /Reproductive Hx- cuffing machine operator Hx Now No 09/02/24 14:43 Gestational Age (in weeks): EDC: Hx Hx Para Hx Section SAB No 09/02/24 14:43 Active Medications Active Medications: Current Medications Generic Name Dose Route Start Last Admin Trade Name Freq PRN Reason Stop Dose Admin Vancomycin HCl 1,250 mg/ 275 mls @ 167 mls/hr 09/02/24 14:31 Sodium Chloride IV 09/02/24 16:09 X1 ONE [facility] Medical History History of Crohn's disease Psoriatic arthritis Psoriasis Internal derangement of right knee Wears glasses Post-menopausal Depression Anxiety Ambulates with cane Injury of back Difficulty swallowing History of IBS History of hiatal hernia Former smoker Shortness of breath on exertion Chronic cough History of echocardiogram History of stress test Hypertension Cardiology follow-up encounter History of CHF (congestive heart failure) History of irregular heartbeat Acute pharyngitis, unspecified URI (upper respiratory infection) Contact with or suspected exposure to other viral communicable disease History of partial replacement of left hip joint using bipolar prosthesis Vitamin D deficiency HLD (hyperlipidemia) Insomnia Dry eye Regular astigmatism, bilateral PVCs (premature ventricular contractions) Coronary artery stenosis Chronic diastolic CHF (congestive heart failure) Iron malabsorption Osteoarthritis Lumbar spondylosis Osteoporosis Congenital cataract Intermittent palpitations Nausea TIA (transient ischemic attack) Acute maxillary sinusitis, unspecified Acute ethmoidal sinusitis, unspecified Acute frontal sinusitis, unspecified COPD exacerbation Foreign body in conjunctival sac, left eye, initial encounter Acute bacterial conjunctivitis Influenza A Acute bronchitis Back pain Limb weakness Asthma Anemia Arthritis Home Medications ?Medication ?Instructions ?Recorded ?Last Taken ?Type albuterol sulfate 90 mcg/actuation 2 puff inhalation Q 4H PRN PRN 03/13/15 Unknown History aerosol inhaler Shortness Of Breath clopidogrel 75 mg tablet 75 mg PO DAILY BLOOD THINNER 03/13/15 03/15/24 History fluoxetine 20 mg capsule 60 mg PO QHS MENTAL HEALTH 0 12/13/15 03/19/24 History peg [id number] 1 1 drp OP 4X/DAY DRY EY ES 11/13/17 03/19/24 History %-0.2 %-0.2 % eye drops (Dry Eye Relief) leflunomide 20 mg tablet (Arava) 20 mg PO DAILY RA 03/19/24 History amlodipine 5 mg tablet 7.5 mg PO DAILY BP 08/15/22 03/20/24 History mometasone 50 mcg/actuation nasal 2 spray intranasal D AILY ALLERGIES 08/15/22 03/19/24 History spray ergocalciferol (vitamin D2) 1,250 1,250 mcg PO .EVERY OTHER WEEK 11/05/22 Unknown History mcg (50,000 unit) capsule (Vitamin SUPPELEMNT D2) mecobalamin (vitamin B12) 1,000 1,000 mcg sublingual D AILY 12/06/22 03/19/24 History mcg disintegrating SUPPLEMENT tablet,sublingual abatacept 50 mg/0.4 mL 50 mg subcut QMONTH RA 12/17 Unknown History subcutaneous syringe (Orencia) polyethylene glycol 3350 17 4 g PO PRN PRN Constipatio n 01/09/23 Unknown History gram/dose oral powder (Miralax) [id number] See Rx Instructions PO .COMP ROJELIO 09/25/23 03/19/24 Rx 36,000-114,000-180,000 unit #300 caps capsule,delay rel (Creon) acetaminophen 500 mg tablet 1,000 mg PO Q6H PRN fever or pain 11/15/23 Unknown History atorvastatin 80 mg tablet 80 mg PO QDAY 11/15/23 Unkno wn History hydrocortisone 2.5 % topical cream [address] BID PRN Crohn's 11/29/23 Unknown Rx with perineal applicator disease #30 grams lubiprostone 8 mcg capsule 8 mcg PO BID PRN for consti pation 01/26/24 Unknown Rx #60 caps meclizine 25 mg tablet 25 mg PO DAILY PRN PRN dizzi ness 03/17/24 Unknown History budesonide 3 mg 6 mg (2 x 3 mg) PO DAILY #60 caps 04/09/24 Unknown Rx capsule,delayed,extended release pantoprazole 40 mg tablet,delayed 40 mg PO DAILY #90 T ABLETS 05/01/24 Unknown Rx release promethazine 25 mg tablet 25 mg PO Q6H PRN PRN Nausea #60 05/11/24 Unknown Rx tabs dicyclomine 10 mg capsule 10 mg PO TID PRN for abdomin al 08/10/24 Unknown Rx pain #90 caps alprazolam 1 mg tablet 1 mg PO TID 30 days #90 tabs 08/31/24 Unknown Rx bupropion HCl (smoking deter) 150 150 mg PO DAILY 12/20 Unknown History mg tablet,12 hr sustained-release(smoking deterrent) methylprednisolone 4 mg tablets in PO UD 09/02/24 Unkn own History a dose pack tramadol 50 mg tablet 50 mg PO Q6H PRN PRN pain Unknown History Allergy/AdvReac Type Severity Reaction Status Date / Time doxycycline calcium (From Allergy Anaphylaxis Verified 09/02/24 10:35 Vibramycin) doxycycline hyclate (From Allergy Anaphylaxis Verified 09/02/24 10:35 Vibramycin) doxycycline monohydrate Allergy Anaphylaxis Verified 09/02/24 10:35 (From Vibramycin) NSAIDS (Non-Steroidal Allergy Anaphylaxis Verified 09/02/24 10:35 Anti-Inflamma duloxetine (From Cymbalta) AdvReac HEADACHE Verified 09/02/24 10:35 AND UPSET STOMACH hydrocodone bitartrate (From AdvReac STOMACH Verified 09/02/24 10:35 Vicodin) UPSET hydromorphone HCl (From AdvReac Vomiting Verified 09/02/24 10:35 Dilaudid) morphine AdvReac Vomiting Verified 09/02/24 10:35 Family History Mother Asthma Hypertension Kidney disease Father Asthma Myocardial infarction Daughter Asthma Diabetes Hypertension Sister Asthma Hypertension Surgical History History of total right knee replacement (TKR) S/P total knee arthroplasty Hx of esophagogastroduodenoscopy History of cardiac catheterization S/P repair of paraesophageal hernia History of Vanessa fundoplication H/O adenoidectomy History of tonsillectomy H/O hernia repair History of total left knee replacement Hx of section H/O shoulder surgery Social History household members: family housing: house Smoking Status: Former smoker quit date: 07/29/13 alcohol intake: never substance use type: does not use Review of Systems (Anesthesia) ROS Narrative System reviewed and no additional complaints, except as documented.
[2024-09-02] MEDS: Piperacil/Tazobactam 3.375 GM in 0.9% Normal Saline (50mL MB+) 50 ML IV (15:56)
--- NOTE | 2024-09-02 15:58 | PCM.HP.STD ---
HPI - General General Date of Admission: 09/02/24 Date of Service: 09/02/24 Chief Complaint: Rectal pain HPI Narrative DEWEY HORTA, is a 64 F who presents to the [place] emergency department with rectal pain for the past week along with upper respiratory infection symptoms. Patient has multiple medical problems including pancreatic insufficiency, recent diagnosis of Crohn's disease, fibromyalgia and rheumatoid arthritis. She was seen in the emergency department and clinically was felt that she had a perirectal abscess. CT scan was performed and confirmed a fairly sizable right sided perirectal abscess. She is also had cough for several days along with chills. She was found to be COVID-positive as well. Dr. Pitts is her test desk operator. Surgery consult was obtained and plans were made to admit the patient and perform an I&D. [facility] Medical History (Updated 09/02/24 @ 16:[address] Gee Garcia MD) Perirectal abscess History of Crohn's disease Psoriatic arthritis Psoriasis Internal derangement of right knee Wears glasses Post-menopausal Depression Anxiety Ambulates with cane Injury of back Difficulty swallowing History of IBS History of hiatal hernia Former smoker Shortness of breath on exertion Chronic cough History of echocardiogram History of stress test Hypertension Cardiology follow-up encounter History of CHF (congestive heart failure) History of irregular heartbeat Acute pharyngitis, unspecified URI (upper respiratory infection) Contact with or suspected exposure to other viral communicable disease History of partial replacement of left hip joint using bipolar prosthesis Vitamin D deficiency HLD (hyperlipidemia) Insomnia Dry eye Regular astigmatism, bilateral PVCs (premature ventricular contractions) Coronary artery stenosis Chronic diastolic CHF (congestive heart failure) Iron malabsorption Osteoarthritis Lumbar spondylosis Osteoporosis Congenital cataract Intermittent palpitations Nausea TIA (transient ischemic attack) Acute maxillary sinusitis, unspecified Acute ethmoidal sinusitis, unspecified Acute frontal sinusitis, unspecified COPD exacerbation Foreign body in conjunctival sac, left eye, initial encounter Acute bacterial conjunctivitis Influenza A Acute bronchitis Back pain Limb weakness Asthma Anemia Arthritis Home Medications ?Medication ?Instructions ?Recorded ?Last Taken ?Type albuterol sulfate 90 mcg/actuation 2 puff inhalation Q4H PRN PRN 03/13/15 Unknown History aerosol inhaler Shortness Of Breath clopidogrel 75 mg tablet 75 mg PO QHS BLOOD THINNER 03/13/15 09/01/24 History fluoxetine 20 mg capsule 60 mg PO QHS MENTAL HEALTH 12/13/15 09/01/24 History peg [id number] 1 1 drp OP 4X/DAY DRY EYES 11/13/17 03/19/24 History %-0.2 %-0.2 % eye drops (Dry Eye Relief) leflunomide 20 mg tablet (Arava) 20 mg PO QHS RA 03/22/18 09/01/24 History amlodipine 5 mg tablet 7.5 mg PO QHS BP 08/15/22 09/01/24 History mometasone 50 mcg/actuation nasal 2 spray intranasal .QAM ALLERGIES 08/15/22 09/01/24 History spray ergocalciferol (vitamin D2) 1,250 1,250 mcg PO .EVERY OTHER WEEK 11/05/22 08/26/24 History mcg (50,000 unit) capsule (Vitamin SUPPELEMNT D2) mecobalamin (vitamin B12) 1,000 1,000 mcg sublingual QHS SUPPLEMENT 12/06/22 09/01/24 History mcg disintegrating tablet,sublingual abatacept 50 mg/0.4 mL 50 mg subcut QMONTH RA 12/17/22 07/02/24 History subcutaneous syringe (Orencia) polyethylene glycol 3350 17 4 g PO PRN PRN Constipation 01/09/23 Unknown History gram/dose oral powder (Miralax) [id number] See Rx Instructions PO .COMPLEX 09/25/23 09/01/24 Rx 36,000-114,000-180,000 unit #300 caps capsule,delay rel (Creon) acetaminophen 500 mg tablet 1,000 mg PO Q6H PRN fever or pain 11/15/23 09/01/24 History atorvastatin 80 mg tablet 80 mg PO QHS 11/15/23 09/01/24 History hydrocortisone 2.5 % topical cream 1 applic MA BID PRN Crohn's 11/29/23 Unknown Rx with perineal applicator disease #30 grams meclizine 25 mg tablet 25 mg PO DAILY PRN PRN dizziness 03/17/24 Unknown History budesonide 3 mg 6 mg (2 x 3 mg) PO DAILY #60 caps 04/09/24 09/01/24 Rx capsule,delayed,extended release pantoprazole 40 mg tablet,delayed 40 mg PO DAILY #90 TABLETS 05/01/24 09/01/24 Rx release promethazine 25 mg tablet 25 mg PO Q6H PRN PRN Nausea #60 05/11/24 09/01/24 Rx tabs dicyclomine 10 mg capsule 10 mg PO TID PRN for abdominal 08/10/24 09/01/24 Rx pain #90 caps alprazolam 1 mg tablet 1 mg PO TID 30 days #90 tabs 08/31/24 09/01/24 Rx bupropion HCl (smoking deter) 150 150 mg PO QHS 09/02/24 09/01/24 History mg tablet,12 hr sustained-release(smoking deterrent) methylprednisolone 4 mg tablets in PO UD 09/02/24 09/01/24 History a dose pack tramadol 50 mg tablet 50 mg PO Q6H PRN PRN pain 09/02/24 09/01/24 History Allergy/AdvReac Type Severity Reaction Status Date / Time doxycycline calcium (From Allergy Anaphylaxis Verified 09/02/24 15:44 Vibramycin) doxycycline hyclate (From Allergy Anaphylaxis Verified 09/02/24 15:44 Vibramycin) doxycycline monohydrate Allergy Anaphylaxis Verified 09/02/24 15:44 (From Vibramycin) NSAIDS (Non-Steroidal Allergy Anaphylaxis Verified 09/02/24 15:44 Anti-Inflamma duloxetine (From Cymbalta) AdvReac HEADACHE Verified 09/02/24 15:44 AND UPSET STOMACH hydrocodone bitartrate (From AdvReac STOMACH Verified 09/02/24 15:44 Vicodin) UPSET hydromorphone HCl (From AdvReac Vomiting Verified 09/02/24 15:44 Dilaudid) morphine AdvReac Vomiting Verified 09/02/24 15:44 Family History Mother Asthma Hypertension Kidney disease Father Asthma Myocardial infarction Daughter Asthma Diabetes Hypertension Sister Asthma Hypertension Surgical History History of total right knee replacement (TKR) S/P total knee arthroplasty Hx of esophagogastroduodenoscopy History of cardiac catheterization S/P repair of paraesophageal hernia History of Vanessa fundoplication H/O adenoidectomy History of tonsillectomy H/O hernia repair History of total left knee replacement Hx of section H/O shoulder surgery Social History household members: family housing: house Smoking Status: Former smoker quit date: 07/29/13 alcohol intake: never substance use type: does not use Vital Signs Vital Signs Vital Signs: 09/02/24 10:33 09/02/24 14:41 09/02/24 14:43 Temperature 96.5 F L Temperature Source Temporal Pulse Rate 88 82 84 Respiratory Rate 16 16 16 Respiratory Pattern Blood Pressure 142/90 H 147/50 H 147/50 H Blood Pressure Mean 107 82 82 Blood Pressure Source Monitor Blood Pressure Position Supine Blood Pressure Location Left Arm Pulse Ox 100 96 96 Oxygen Delivery Method Room Air Room Air Room Air 09/02/24 14:57 09/02/24 15:26 09/02/24 15:32 Temperature 97.9 F 97.9 F Temperature Source Pulse Rate 84 84 Respiratory Rate 16 16 Respiratory Pattern Normal Blood Pressure 147/50 H 147/50 H Blood Pressure Mean 82 Blood Pressure Source Blood Pressure Position Blood Pressure Location Pulse Ox 96 96 Oxygen Delivery Method Weight Weight: 196 lb 1.6 oz Body Mass Index (BMI) 34.7 Physical Exam Const alert, oriented x3, no apparent distress and average body habitus General Appearance: cooperative and comfortable HEENT normocephalic Head and Scalp: normal to inspection, normocephalic and atraumatic Eyes PERRL Results Lab / Micro Data 09/02/24 11:31 09/02/24 11:31 Labs: Laboratory Results - last 24 hr 09/02/24 11:31: WBC 11.3 H, RBC 4.04 L, Hgb 10.4 L, Hct 34.1 L, MCV 84.4, MCH 25.7 L, MCHC 30.5 L, RDW Std Deviation 53.5 H, RDW Coeff of Pepe 17.3 H, Plt Count 247, MPV 11.0, Immature Gran % (Auto) 0.600, Neut % (Auto) 83.8 H, Lymph % (Auto) 5.7 L, [place] % (Auto) 8.7, Eos % (Auto) 0.4, Baso % (Auto) 0.8, Absolute Neuts (auto) 9.5 H, Absolute Lymphs (auto) 0.64 L, Nucleated RBC % 0, Sodium 134 L, Potassium 3.3 L, Chloride 102, Carbon Dioxide 24.0, Anion Gap 9, BUN 10, Creatinine 0.72, Estim Creat Clear Calc 74.18, Est GFR (MDRD) Af Amer 104, Est GFR (MDRD) Non-Af 86, BUN/Creatinine Ratio 13.9, Glucose 91, Calcium 8.7, Total Bilirubin 0.30, AST 18, ALT 17, Alkaline Phosphatase 87, Total Protein 6.7, Albumin 2.7 L, Globulin 4.0, Albumin/Globulin Ratio 0.7 L 09/02/24 12:24: Urine Color Yellow, Urine Clarity Clear, Urine pH 6.0, Ur Specific [place] 1.015, Urine Protein 30 H, Urine Glucose (UA) Normal, Urine Ketones Negative, Urine Occult Blood Negative, Urine Nitrite Negative, Urine Bilirubin Negative, Urine Urobilinogen 1 H, Ur Leukocyte Esterase 25 H, Urine RBC 0 SEEN, Urine WBC 0-5 SEEN, Ur Squamous Epith Cells 0-5 SEEN, Uric Acid Crystals 1+, Urine Bacteria 0 SEEN, Hyaline Casts 0-5 SEEN, Urine Mucus 0 SEEN Micro: Microbiology 09/02/24 12:00 Mucosa - Nose SARS-CoV-2, Influenza & RSV (PCR) - Final SARS-CoV-2 (COVID 19 PCR) Imaging Radiology Impression Chest X-Ray 09/02/24 11:19 IMPRESSION: No acute cardiopulmonary process. Reading Location: [facility] Abdomen/Pelvis CT 09/02/24 12:06 IMPRESSION: Right perineum fluid collection most compatible with an abscess. One or more dose reduction techniques were used (e.g., Automated exposure control, adjustment of the mA and/or kV according to patient size, use of iterative reconstruction technique). Reading Location: [id number] Assessment & Plan Assessment/Plan (1) Perirectal abscess: PLAN: Plan The patient is a 64-year-old female with a right sided perirectal abscess. I have recommended operative drainage. We discussed the details of the planned procedure and she wishes to proceed. Surgery will begin momentarily. She will likely be admitted for antibiotics. Charges/Coding Visit Charges Inpatient E&M: 99631 Init Hosp L3
--- NOTE | 2024-09-02 16:00 | MASS_PTH ---
PATIENT: DEWEY HORTA LOC: [facility] U#:[id number] AGE/SX: 64/F ROOM: ME318 RE09/02/[address]: Dr. 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 Extensive squamous cell carcinoma in situ. See comment. 09/04/2024 COMMENT Immunohistochemistry ([id number]) for surrogate HPV marker (p16) will be performed, and results will be reported separately. MICROSCOPIC DESCRIPTION Slides are reviewed. GROSS DESCRIPTION Received in fixative is one container labeled with the patient's name and designated Perianal mass biopsy. The specimen consists of three irregular pieces of akhtar, pink focally congested tissue measuring in aggregate 2 x 2 x 1cm. Larger pieces are sectioned. The entire specimen is submitted in one cassette. ALEXI. 09/03/2024 TC:0 CPT:[id number]
[2024-09-02] MEDS: Vancomycin HCl 1,250 MG in 0.9% Normal Saline (250mL Bag) 250 ML 167 MG IV (16:29)
[2024-09-02] MEDS: Bupiv/Epi 0.25% 30 ML Vial (17:00)
--- NOTE | 2024-09-02 17:17 | PCM.POST.ANE ---
Anesthesia: Postop Eval I Current Vital Signs Temperature: 98.1 F Pulse Rate: 80 Blood Pressure: 115/40 Respiratory Rate: 16 Pulse Ox: 98 Oxygen Delivery Method: Nasal Cannula Oxygen Flow Rate (L/min): 3 Assessment Airway patent: Yes Spontaneous unlabored respirations: Yes Mental status: Awake and Calm nausea: No Vomiting: No Anesthesia Complication: No Fluid Hydration Crystalloid volume administer (ml): 10 Total IV fluid infused: 10 Progress Note Anesthesia document: Postop Eval 1 completed: Yes
--- NOTE | 2024-09-02 17:23 | PCM.OPRPT ---
Problems Associated Problem List Diagnoses (1) Perirectal abscess: (2) Mass of anus: Multi Select Codes Digestive Digestive CPT Codes: 49277 Incision of rectal abscess [place] 85275 Anoscopy and biopsy Operative Report (Standard) Operative Information Date of Procedure: 09/02/24 Pre-Operative Diagnosis: Right-sided perirectal abscess Post-Operative Diagnosis: Suspect perianal mass with associated fluid collection/abscess Surgery/Procedure Performed: 1. Incision and drainage of perirectal abscess/fluid collection 2. Biopsy of perianal mass special needs teacher: No Type of Anesthesia: Local and MAC RN Documented Start/Stop Times: Operation Date: 09/02/24 16:00 Case Time Into Pre-Op 09/02/24 15:15 Anesthesia Start 09/02/24 16:11 Into Room 09/02/24 16:11 Out of Pre-Op 09/02/24 16:15 Procedure Start 09/02/24 16:34 Procedure End 09/02/24 17:03 Anesthesia End 09/02/24 17:11 Out of Room 09/02/24 17:11 Into Recovery 09/02/24 17:13 Procedure Start Time: 16:34 Procedure Stop Time: 17:03 Select all DRAINS/GRAFTS/IMPLANTS that apply: Drains Drain details: 1 inch iodoform gauze; Gelfoam Estimated Blood Loss: 30 mL Specimen collected: Yes Description of specimen(s) removed: Biopsy of perianal mass Description of surgery: The patient is a 64-year-old female who presented earlier today to the [facility] emergency department with complaints of perianal pain for about a week she was seen evaluate by the ER staff. CT scan was performed and a fluid collection was encountered with associated stranding. This was suspected initially to be an abscess. As result patient was recommended for surgical drainage/examination. Following informed consent, patient was brought to the operating room today. MAC anesthesia was induced. Once adequately anesthetized her legs were placed in a modified lithotomy position with appropriate padding and positioning. The perineum was then prepped and draped in the usual sterile manner. Prior to anesthesia she was very tender in the perianal area. Once prepped and draped I was able to more closely inspect the region. It was noted with closer examination that she appeared to have a perianal mass. This extended fdc external to the anal verge and seemed to extend another 2 to 3 cm beyond the anal verge towards the rectum. The seem very hard. There was a very high suspicion for malignancy. As I injected local anesthetic in the region just superior to the perianal area on the right where I suspected the patient to have the fluid/abscess, some of the fluid was coming out of the perianal mass. A #11 blade was then used to make about a 1.5 cm incision. Upon doing so I encountered mostly bloody fluid. There was certainly a cavity in this vicinity no monica pus was appreciated. This was copiously irrigated. The skin edge was cauterized to ensure hemostasis. This wound was then packed with 1 inch iodoform gauze. Biopsy of the mass was performed by first injecting local anesthetic. An Allis clamp was then used to grasp a hard portion of the mass and then a #11 blade was then used to excise a segment of tissue. This tissue was very hard and fibrous/woody. This was sent to pathology for further examination. The area was cauterized to ensure hemostasis. Gelfoam packing was inserted. A total of 30 cc of local anesthetic were utilized during this procedure. This was injected both directly into the tissue as well as in a pudendal block manner. She was awakened anesthesia and taken to recovery in good condition Surgical Findings: 4-1/2 to 5 cm right sided perianal mass (suspect malignancy) Associated perirectal fluid collection/abscess Complications Complications: No Admit VTE Documentation VTE Present on Admission: No VTE Mechan Device Prophylaxis: SCD's VTE Pharm Prophylaxis ordered?: No Reason prophylaxis not ordered: Treatment Not Indicated
[2024-09-02] MEDS: oxyCODONE 5 MG Tablet PO (20:59)
[2024-09-02] MEDS: ALPRAZolam 0.5 MG Tablet 1 MG PO (21:16)
[2024-09-02] MEDS: FLUoxetine 20 MG Capsule 60 MG PO (21:16)
[2024-09-02] MEDS: amLODIPine 2.5 MG Tablet 7.5 MG PO (21:17)
[2024-09-02] MEDS: Acetaminophen 500 MG Tablet 1000 MG PO (21:17)
[2024-09-02] MEDS: Morphine 2 MG/ML Syringe IV (21:46)
[2024-09-03] MEDS: Ondansetron 4 MG/2 ML Vial IV (02:19)
[2024-09-03] MEDS: Morphine 2 MG/ML Syringe IV (02:19)
[2024-09-03] MEDS: 0.9% Saline Lock 10 ML Syringe IV (02:20)
[2024-09-03 02:25] VITALS: BP 143/80; PULSE 88; RESP 18; TEMP 36.6; O2SAT 95
[2024-09-03] MEDS: ALPRAZolam 0.5 MG Tablet 1 MG PO ×2 (06:04→14:29)
[2024-09-03] MEDS: Acetaminophen 500 MG Tablet 1000 MG PO ×2 (06:04→14:29)
--- NOTE | 2024-09-03 06:40 | PN.SURG_ITS ---
Subjective Subjective Patient denies any overnight issues or problems. She states that morphine has helped with pain control. No fevers or chills Objective Data Objective Data Vital Signs: Vital Signs Temp Pulse Resp BP Pulse Ox O2 Del Method O2 Flow Rate 97.9 F 88 18 143/80 H 95 Room Air 2 09/03/24 02:25 09/03/24 02:25 09/03/24 02:25 09/03/24 02:25 09/03/24 02:25 09/03/24 02:36 09/02/24 21:09 Oxygen Flow Rate (L/min) 2 Oxygen Delivery Method Room Air Weight: 209 lb 10.554 oz Body Mass Index (BMI) 37.1 Intake & Output: Intake and Output for Last 24 Hours 09/01/24 09/02/24 09/03/24 23:59 23:59 23:59 Intake Total 325 / 325 Balance 325 / 325 Lab / Micro Data 09/02/24 11:31 09/02/24 11:31 Labs: Laboratory Results - last 24 hr 09/02/24 11:31: WBC 11.3 H, RBC 4.04 L, Hgb 10.4 L, Hct 34.1 L, MCV 84.4, MCH 25.7 L, MCHC 30.5 L, RDW Std Deviation 53.5 H, RDW Coeff of Pepe 17.3 H, Plt Count 247, MPV 11.0, Immature Gran % (Auto) 0.600, Neut % (Auto) 83.8 H, Lymph % (Auto) 5.7 L, [place] % (Auto) 8.7, Eos % (Auto) 0.4, Baso % (Auto) 0.8, Absolute Neuts (auto) 9.5 H, Absolute Lymphs (auto) 0.64 L, Nucleated RBC % 0, Sodium 134 L, Potassium 3.3 L, Chloride 102, Carbon Dioxide 24.0, Anion Gap 9, BUN 10, Creatinine 0.72, Estim Creat Clear Calc 74.18, Est GFR (MDRD) Af Amer 104, Est GFR (MDRD) Non-Af 86, BUN/Creatinine Ratio 13.9, Glucose 91, Calcium 8.7, Total Bilirubin 0.30, AST 18, ALT 17, Alkaline Phosphatase 87, Total Protein 6.7, A lbumin 2.7 L, Globulin 4.0, Albumin/Globulin Ratio 0.7 L 09/02/24 12:24: Urine Color Yellow, Urine Clarity Clear, Urine pH 6.0, Ur Specific Stanley 1.015, Urine Protein 30 H, Urine Glucose (UA) Normal, Urine Ketones Negative, Urine Occult Blood Negative, Urine Nitrite Negative, Urine Bilirubin Negative, Urine Urobilinogen 1 H, Ur Leukocyte Esterase 25 H, Urine RBC 0 SEEN, Urine WBC 0-5 SEEN, Ur Squamous Epith Cells 0-5 SEEN, Uric Acid Crystals 1+, Urine Bacteria 0 SEEN, Hyaline Casts 0-5 SEEN, Urine Mucus 0 SEEN Micro: Microbiology 09/02/24 12:00 Mucosa - Nose SARS-CoV-2, Influenza & RSV (PCR) - Final SARS-CoV-2 (COVID 19 PCR) Radiography Diagnostic Testing: Radiology Impression Chest X-Ray 09/02/24 11:19 IMPRESSION: No acute cardiopulmonary process. Reading Location: [facility] Abdomen/Pelvis CT 09/02/24 12:06 IMPRESSION: Right perineum fluid collection most compatible with an abscess. One or more dose reduction techniques were used (e.g., Automated exposure control, adjustment of the mA and/or kV according to patient size, use of iterative reconstruction technique). Reading Location: [id number] Physical Exam Narrative She is alert and oriented x 3. She is in no acute distress. Assessment & Plan Assessment/Plan (1) Abscess, perirectal: (2) Mass of anus: PLAN: Plan The patient is a 64-year-old female who presented yesterday to the emergency department with perirectal pain. CT scan showed a fluid collection thought to be consistent with abscess. Rectal exam under anesthesia with drainage of abscess was recommended and performed. At the time of surgery there was concern for a right sided mass. Biopsy was obtained and tissue sent to pathology. Pain control seems to be adequate. Will await biopsy results. Continue IV antibiotics for now. Will likely remove packing later today
[2024-09-03 06:57] LABS: Absolute Lymphocyte Count 0.97 X10^3/uL (0.83-4.51); Absolute Neutrophil Count 6.1 X10^3/uL (2.0-7.7); Basophil# 0.06 X10^3/uL; Basophil% 0.7 % (0-1); Eosinophil# 0.04 X10^3/uL; Eosinophils% 0.5 % (0-5); Hematocrit 31.2 % (37-47); Hemoglobin 9.6 g/dL (12.0-15.0); Lymphocyte # 0.97 X10^3/ul (0.83-4.51); Lymphocyte % 11.9 % (19-41); Mean Corp Hgb Conc 30.8 g/dL (32-36); Mean Corpuscular Hgb 25.5 pg (27.0-32.0); Mean Platelet Vol. 11.4 fl (6.2-12.0); Monocyte# 0.95 X10^3/uL; Monocyte% 11.7 % (0-10); NRBC Flagged by Analyzer 0 % (0-5); Neutrophil # 6.07 X10^3/uL (2.7-7.7); Neutrophil % 74.7 % (47-70); Platelet Count 219 K/mm3 (150-450); RBC Distribution Width CV 17.3 % (11.6-14.6); RBC Distribution Width SD 52.7 fl (35.1-43.9); Red Blood Count 3.76 M/mm3 (4.2-5.4); White Blood Count 8.1 K/mm3 (4.4-11.0)
[2024-09-03 07:34] LABS: Anion Gap 7 (5-15); BUN 8 mg/dL (7-18); Calcium,Total 8.2 mg/dL (8.5-10.1); Chloride 102 mmol/L (98-107); EST Glomerular Filtration Rate 132 mL/min (>60); Est Glom Filt Rate - Afr Amer 159 mL/min (>60); Glucose 92 mg/dL (74-106); Potassium 3.2 mmol/L (3.5-5.1); Sodium Level 133 mmol/L (136-145)
[2024-09-03 08:46] VITALS: BP 140/54; PULSE 67; RESP 15; TEMP 36.7; O2SAT 95
[2024-09-03] MEDS: Piperacil/Tazobactam 3.375 GM in 0.9% Normal Saline (50mL MB+) 50 ML IV (09:03)
[2024-09-03] MEDS: Creon 12,000 unit DR CapSULE 1 CAP PO ×2 (10:28→12:33)
[2024-09-03] MEDS: Creon 24,000 unit DR Capsule 1 CAP PO ×2 (10:29→12:33)
[2024-09-03] MEDS: oxyCODONE 5 MG Tablet PO (10:29)
[2024-09-03] MEDS: Budesonide 3 MG CAPSULE.EC 6 MG PO (10:29)
[2024-09-03 12:28] VITALS: BP 115/41; PULSE 70; RESP 18; TEMP 36.8; O2SAT 93
--- NOTE | 2024-09-03 15:52 | PCM.DC.SUM ---
Providers Date of Admission: 09/02/24 Date of Discharge: 09/03/24 Primary Care Physician: Ciara Dhillon, REGINA-C Reason For Visit: ABSCESS ON RECTUM Diagnosis Discharge Diagnosis (1) Abscess, perirectal: Status: Acute Code(s): K61.1 - Rectal abscess (2) Mass of anus: Status: Acute Code(s): K62.89 - Other specified diseases of anus and rectum Plan The patient is a 64-year-old female who presented yesterday to the emergency department with perirectal pain. CT scan showed a fluid collection thought to be consistent with abscess. Rectal exam under anesthesia with drainage of abscess was recommended and performed. At the time of surgery there was concern for a right sided mass. Biopsy was obtained and tissue sent to pathology. Pain control seems to be adequate. Will await biopsy results. Continue IV antibiotics for now. Will likely remove packing later today Medications at Discharge Home Medications albuterol sulfate 90 mcg/actuation aerosol inhaler 2 puff inhalation Q4H PRN PRN Shortness Of Breath 03/13/15 clopidogrel 75 mg tablet 75 mg PO QHS BLOOD THINNER 03/13/15 fluoxetine 20 mg capsule 60 mg PO QHS MENTAL HEALTH 12/13/15 peg [id number] 1 %-0.2 %-0.2 % eye drops (Dry Eye Relief) 1 drp OP 4X/DAY DRY EYES 11/13/17 leflunomide 20 mg tablet (Arava) 20 mg PO QHS RA 03/22/18 amlodipine 5 mg tablet 7.5 mg PO QHS BP 08/15/22 mometasone 50 mcg/actuation nasal spray 2 spray intranasal .QAM ALLERGIES 08/15/22 ergocalciferol (vitamin D2) 1,250 mcg (50,000 unit) capsule (Vitamin D2) 1,250 mcg PO .EVERY OTHER WEEK SUPPELEMNT 11/05/22 mecobalamin (vitamin B12) 1,000 mcg disintegrating tablet,sublingual 1,000 mcg sublingual QHS SUPPLEMENT 12/06/22 abatacept 50 mg/0.4 mL subcutaneous syringe (Orencia) 50 mg subcut QMONTH RA 12/17/22 polyethylene glycol 3350 17 gram/dose oral powder (Miralax) 4 g PO PRN PRN Constipation 01/09/23 [id number] 36,000-114,000-180,000 unit capsule,delay rel (Creon) See Rx Instructions PO .COMPLEX #300 caps 09/25/23 acetaminophen 500 mg tablet 1,000 mg PO Q6H PRN fever or pain 11/15/23 atorvastatin 80 mg tablet 80 mg PO QHS 11/15/23 hydrocortisone 2.5 % topical cream with perineal applicator 1 applic DC BID PRN Crohn's disease #30 grams 11/29/23 meclizine 25 mg tablet 25 mg PO DAILY PRN PRN dizziness 03/17/24 budesonide 3 mg capsule,delayed,extended release 6 mg (2 x 3 mg) PO DAILY #60 caps 04/09/24 pantoprazole 40 mg tablet,delayed release 40 mg PO DAILY #90 TABLETS 05/01/24 promethazine 25 mg tablet 25 mg PO Q6H PRN PRN Nausea #60 tabs 05/11/24 dicyclomine 10 mg capsule 10 mg PO TID PRN for abdominal pain #90 caps 08/10/24 alprazolam 1 mg tablet 1 mg PO TID 30 days #90 tabs 08/31/24 bupropion HCl (smoking deter) 150 mg tablet,12 hr sustained-release(smoking deterrent) 150 mg PO QHS 09/02/24 methylprednisolone 4 mg tablets in a dose pack PO UD 09/02/24 tramadol 50 mg tablet 50 mg PO Q6H PRN PRN pain 09/02/24 oxycodone-acetaminophen 5 mg-325 mg tablet (Percocet) 1 tab PO Q8H PRN pain 3 days #14 tabs 09/03/24 Hospital Course Operations - (Incision and drainage of a right perirectal abscess as well as biopsy of a anal mass) Summary of Care Provided Minutes Spent on Discharge: 15 Hospital Course: The patient is a 64-year-old female who presented to the emergency department yesterday with complaints of perianal pain for the past week. CT scan was performed and showed what appeared to be a fluid collection in the right perianal area. This was thought to be an abscess or fluid collection. Surgery was consulted. The patient was admitted and plans were made to bring the patient to the operating room for rectal exam under anesthesia with I&D of perirectal abscess. At the time of surgery it was felt that she had a right sided mass right at the anal verge. Biopsies were performed. Pathology is still pending. Today she is doing well. Pain is well-controlled. She would like to go home. Pathology is still pending and I will plan on contacting her once results become available. Physical Exam Const alert, oriented x3 and no apparent distress Weight / BMI Weight Weight: 209 lb 10.554 oz Body Mass Index (BMI) 37.1 ABG / Lab / Microbiology Data 09/03/24 06:13 09/03/24 06:13 Laboratory: Laboratory Results - last 24 hr 09/03/24 06:13: WBC 8.1, RBC 3.76 L, Hgb 9.6 L, Hct 31.2 L, MCV 83.0, MCH 25.5 L, MCHC 30.8 L, RDW Std Deviation 52.7 H, RDW Coeff of Pepe 17.3 H, Plt Count 219, MPV 11.4, Immature Gran % (Auto) 0.500, Neut % (Auto) 74.7 H, Lymph % (Auto) 11.9 L, [place] % (Auto) 11.7 H, Eos % (Auto) 0.5, Baso % (Auto) 0.7, Absolute Neuts (auto) 6.1, Absolute Lymphs (auto) 0.97, Nucleated RBC % 0, Sodium 133 L, Potassium 3.2 L, Chloride 102, Carbon Dioxide 24.0, Anion Gap 7, BUN 8, Creatinine 0.50 L, Estim Creat Clear Calc 76.90, Est GFR (MDRD) Af Amer 159, Est GFR (MDRD) Non-Af 132, BUN/Creatinine Ratio 16.0, Glucose 92, Calcium 8.2 L Microbiology: Microbiology 09/02/24 12:00 Mucosa - Nose SARS-CoV-2, Influenza & RSV (PCR) - Final SARS-CoV-2 (COVID 19 PCR) D/C Instructions Discharge Diet: No restrictions Discharge Activity: Return to Normal Activity May shower in (days): 1 Call your doctor if your incision/area has: Continuous Slow Oozing, Sudden Increased Bleeding, Increased Pain/ Swelling, Increased Redness, Foul Smelling Discharge and Swelling at the incision site Call your doctor if you observe: Fever of 101 or Higher Cleanse incision/area with: Soap & Water DC O2, CPAP, BIPAP Needs Home O2 Discharge instructions: No DC home with Oxygen: No Please Follow Up With: Gee Garcia MD When: 1 week Meaningful Use Info Meaningful Use Meaningful Use Diagnoses (Choose all that apply): None applicable Ischemic Stroke Statin Dosing Therapy Reference: STATIN DOSE THERAPY REFERENCE: * Patients > 75 years receive moderate or high dose statin therapy. * Patients 75 years or YOUNGER should receive HIGH intensity statin dose unless contraindicated. You will be required to document reason for non-treatment if statin daily dose does not meet guidelines. HIGH DOSE STATIN THERAPY DAILY Atorvastatin > than or = to 40 mg Rosuvastatin > than or = to 20 mg Amlodipine + Atorvastatin > than or = to 2.5/40 mg Ezetimibe + Simvastatin 10/80 mg Simvastatin 80mg Discharge Plan Admission Admit Date/Time: 09/02/24 14:24 Primary Reason for Your Visit: Rectal pain Attending Provider: Gee Garcia Primary Care Provider: Ciara Dhillon [employer] Discharge Orders/Prescriptions Prescriptions: New oxycodone-acetaminophen [Percocet] 5-325 mg tablet 1 tab PO Q8H PRN (Reason: pain) 3 Days Qty: 14 0RF Continued mometasone 50 mcg/actuation spray,non-aerosol 2 spray intranasal .QAM Rx Instructions: administer into each nostril amlodipine 5 mg tablet 7.5 mg PO QHS mecobalamin (vitamin B12) 1,000 mcg tablet,disintegrating 1,000 mcg sublingual QHS Rx Instructions: place tablet under tongue and allow to dissolve for at least30 secs before swallowing Orencia 50 mg/0.4 mL syringe 50 mg subcut QMONTH acetaminophen 500 mg tablet 1,000 mg PO Q6H PRN (Reason: fever or pain) atorvastatin 80 mg tablet 80 mg PO QHS clopidogrel 75 MG tablet 75 mg PO QHS Patient Comments: BLOOD THINNER albuterol sulfate 1 INHALER inhaler 2 puff INHALATION Q4H PRN PRN (Reason: Shortness Of Breath) Patient Comments: BREATING fluoxetine 20 MG capsule 60 mg PO QHS Patient Comments: ANXIETY Dry Eye Relief 15 ML drops 1 drp OP 4X/DAY leflunomide [Arava] 20 tablet 20 mg PO QHS Patient Comments: ergocalciferol (vitamin D2) [Vitamin D2] 1,250 mcg (50,000 unit) Capsule 1,250 mcg PO .EVERY OTHER WEEK polyethylene glycol 3350 [Miralax] 17 gram/dose powder 4 g PO PRN PRN (Reason: Constipation) meclizine 25 mg tablet 25 mg PO DAILY PRN PRN (Reason: dizziness) tramadol 50 mg tablet 50 mg PO Q6H PRN PRN (Reason: pain) methylprednisolone 4 mg tablets,dose pack PO UD Patient Comments: STARTED ON 08/31/24 bupropion HCl (smoking deter) 150 mg tablet extended release 12 hr 150 mg PO QHS Creon 36,000-114,000- 180,000 unit capsule,delayed release(DR/EC) See Rx Instructions PO .COMPLEX Qty: 300 11RF Rx Instructions: take 1-2 with snacks and 2-3 with meals hydrocortisone 2.5 % cream with perineal applicator 1 applic DC BID PRN (Reason: Crohn's disease) Qty: 30 1RF budesonide 3 mg capsule,delayed,extend.release 6 mg PO DAILY Qty: 60 5RF pantoprazole 40 mg tablet,delayed release (DR/EC) 40 mg PO DAILY Qty: 90 0RF promethazine 25 mg tablet 25 mg PO Q6H PRN PRN (Reason: Nausea) Qty: 60 2RF dicyclomine 10 mg capsule 10 mg PO TID PRN (Reason: for abdominal pain) Qty: 90 0RF alprazolam 1 mg tablet 1 mg PO TID 30 Days Qty: 90 2RF Referrals / Follow Up: Gee Garcia MD [Med Staff - Active Staff] - Ciara Dhillon NP, [employer]-C [Primary Care Provider] - Disposition Disposition (needs filled in before D/C Order can be placed): Home, Self Care
[2024-09-03 16:08] VITALS: BP 115/40; PULSE 80; RESP 16; TEMP 36.7; O2SAT 98
--- NOTE | 2024-09-03 16:08 | PCM.POSTANE2 ---
Anesthesia Postop Eval I Sum Postop Eval Completion status Anesthesia document: Postop Eval 1 completed: Yes Anesthesia Postop Eval I Summary Anesthesia Postop Eval I Summary: Anesthesia Postop Eval I: Assessment Summary Airway patent Yes 09/03/24 16:08 Spontaneous unlabored Yes 09/03/24 16:08 respirations Mental status Awake,Calm 09/03/24 16:08 nausea No 09/03/24 16:08 Vomiting No 09/03/24 16:08 Anesthesia Postop Eval I: Fluid Summary Crystalloid volume administer 10 09/03/24 16:08 (ml) Colloids volume administered ( ml) Blood Product volume administered (ml) Total IV fluid infused 10 09/03/24 16:08 Anesthesia Postop Eval I: Summary Notes Anesthesia Complication No 09/03/24 16:08 Anesthesia Complication Comment: Post-operative progress note Anesthesia: Postop Eval II Evaluation Mental status: Awake and Calm Pain Level: 2 nausea: No Vomiting: No Complications Anesthesia Complication: No
[2024-09-03 16:32] VITALS: BP 119/54; PULSE 82; RESP 19; TEMP 36.8; O2SAT 93
== END 2024-09-03 17:03 | disposition home or self-care (01) ==
LOC: SDC 14:46 → ED 14:46 → AC 14:46 → SDC 17:34 → MS3 17:35
PROVIDERS: Admitting Provider Surgery; Emergency Provider Emergency Medicine; PCP Nurse Practitioner Family; Visit Provider Surgery
PROC: (CPT 46045; principal; 2024-09-02 15:45)
DX: K61.1 Rectal abscess (principal); M06.9 Rheumatoid arthritis, unspecified; K50.90 Crohn's disease, unspecified, without complications; I11.0 Hypertensive heart disease with heart failure; I50.32 Chronic diastolic (congestive) heart failure; J44.9 Chronic obstructive pulmonary disease, unspecified; U07.1 COVID-19; E78.5 Hyperlipidemia, unspecified; K86.89 Other specified diseases of pancreas; Z87.891 Personal history of nicotine dependence; D84.9 Immunodeficiency, unspecified; M79.7 Fibromyalgia; K62.89 Other specified diseases of anus and rectum; Z79.899 Other long term (current) drug therapy; Z79.02 Long term (current) use of antithrombotics/antiplatelets
CPT/HCPCS: 46045; 46606; 00902; 36415; 71046; 74177; 80048; 80053; 81001; 85025; 87631; 88305; 88341; 88342; 96365; 96366; 96375; 96376; 97802; 99221; 99284; Q9967; A4216; G0378; J2405

== ENCOUNTER 2024-09-24 18:45 | Emergency (ER) | payer MEDICARE, MEDICAID, SELFPAY ==
[2024-09-24 18:46] VITALS: BP 133/80; PULSE 88; RESP 16; TEMP 36.7; O2SAT 96; BMI 33.3
[2024-09-24] MEDS: Piperacil/Tazobactam 4.5 GM in 0.9% Normal Saline (100mL MB+) 100 ML IV (19:14)
[2024-09-24 19:27] LABS: Absolute Lymphocyte Count 1.59 X10^3/uL (0.83-4.51); Basophil# 0.11 X10^3/uL; Basophil% 1.1 % (0-1); Eosinophil# 0.19 X10^3/uL; Eosinophils% 1.9 % (0-5); Hematocrit 34.4 % (37-47); Hemoglobin 10.7 g/dL (12.0-15.0); Lymphocyte # 1.59 X10^3/ul (0.83-4.51); Lymphocyte % 15.7 % (19-41); Mean Corp Hgb Conc 31.1 g/dL (32-36); Mean Corpuscular Hgb 25.8 pg (27.0-32.0); Mean Corpuscular Volume 83.1 fL (81-99); Mean Platelet Vol. 11.3 fl (6.2-12.0); Monocyte# 1.13 X10^3/uL; Monocyte% 11.2 % (0-10); NRBC Flagged by Analyzer 0 % (0-5); Neutrophil # 6.99 X10^3/uL (2.7-7.7); Neutrophil % 69.1 % (47-70); Platelet Count 258 K/mm3 (150-450); RBC Distribution Width CV 16.3 % (11.6-14.6); RBC Distribution Width SD 49.1 fl (35.1-43.9); Red Blood Count 4.14 M/mm3 (4.2-5.4); White Blood Count 10.1 K/mm3 (4.4-11.0)
[2024-09-24 19:58] LABS: AST(SGOT) 20 U/L (<=31); Alanine Aminotransfer ALT/SGPT 10 U/L (<=34); Albumin, Serum 3.5 g/dL (3.4-4.8); Alkaline Phosphatase 97 U/L (35-104); Anion Gap 11 (5-15); BUN 10 mg/dL (4-19); Calcium 8.7 mg/dL (7.6-11.0); Carbon Dioxide 23.1 mmol/L (22.0-29.0); Chloride 99 mmol/L (96-108); Creatinine, Serum 0.69 mg/dL (0.70-1.20); EST Glomerular Filtration Rate 96 (>60); Estimated Creatinine Clearance 72.55 ml/min; Globulin 3.3 g/dL (2.2-4.2); Glucose 78 mg/dL (70-99); Potassium 3.9 mmol/L (3.3-5.1); Protein, Total 6.8 g/dL (5.9-8.4); Sodium Level 133 mmol/L (133-145); Total Bilirubin 0.18 mg/dL (0.00-1.30)
[2024-09-24] MEDS: Morphine 4 MG/ML Syringe IV (19:59)
[2024-09-24 20:00] LABS: Lactic Acid < 1.0 mmol/L (0.0-2.0)
[2024-09-24 20:46] VITALS: BP 142/81
--- NOTE | 2024-09-24 21:01 | EX.ED.DYSGE1 ---
HPI <Dr. Pawel Cason MD - Last Filed: 09/24/24 23:05> History of Present Illness Chief Complaint: Complaint Detail of Chief Complaint: Pain perineal region/perianal Informant: patient Onset/Context/Timing Context: Sudden Onset Timing: Continuous Quality: Pain Location: Bright perianal perineal region. Current Severity: Mild Maximum Severity: Severe Worsened by: Bowel movement, palpation Relieved by: Nothing Associated Symptoms Associated Symptoms: Patient thought she had a UTI Narrative Narrative: Patient went to urgent care. Urine was negative. Patient was recently seen by surgery. Patient underwent incision of rectal abscess and anoscopy with biopsy on September 02. Patient was noted to have a right-sided perirectal abscess. There is a suspected perianal mass. This was biopsied. Patient states the wound was draining. It is stopped draining. She had blood work and CAT scan done yesterday. White count yesterday was 8.1 with slight shift. Electrolyte panel was unremarkable. CT of the abdomen revealed a right perineal thickened wall that was 5.4 x 1.6 cm with fluid collection with adjacent fat stranding consistent with an abscess. Patient was informed of her lab results and CAT scan results. She denies fever or chills. She denies nausea or vomiting. She denies diarrhea. Prior similar symptoms: Yes Recent Illness/Hospitalization: Yes PFSH <Dr. 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 Mass of anus Perirectal abscess History of Crohn's disease Psoriatic arthritis Psoriasis Internal derangement of right knee Wears glasses Post-menopausal Depression Anxiety Ambulates with cane Injury of back Difficulty swallowing History of IBS History of hiatal hernia Former smoker Shortness of breath on exertion Chronic cough History of echocardiogram History of stress test Hypertension Cardiology follow-up encounter History of CHF (congestive heart failure) History of irregular heartbeat Acute pharyngitis, unspecified URI (upper respiratory infection) Contact with or suspected exposure to other viral communicable disease History of partial replacement of left hip joint using bipolar prosthesis Vitamin D deficiency HLD (hyperlipidemia) Insomnia Dry eye Regular astigmatism, bilateral PVCs (premature ventricular contractions) Coronary artery stenosis Chronic diastolic CHF (congestive heart failure) Iron malabsorption Osteoarthritis Lumbar spondylosis Osteoporosis Congenital cataract Intermittent palpitations Nausea TIA (transient ischemic attack) Acute maxillary sinusitis, unspecified Acute ethmoidal sinusitis, unspecified Acute frontal sinusitis, unspecified COPD exacerbation Foreign body in conjunctival sac, left eye, initial encounter Acute bacterial conjunctivitis Influenza A Acute bronchitis Back pain Limb weakness Asthma Anemia Arthritis Home Medications ?Medication ?Instructions ?Recorded ?Last Taken ?Type albuterol sulfate 90 mcg/actuation 2 puff inhalation Q4H PRN PRN 03/13/15 Unknown History aerosol inhaler Shortness Of Breath clopidogrel 75 mg tablet 75 mg PO QHS BLOOD THINNER 03/13/15 09/01/24 History fluoxetine 20 mg capsule 60 mg PO QHS MENTAL HEALTH 12/13/15 09/01/24 History peg [id number] 1 1 drp OP 4X/DAY DRY EYES 11/13/17 03/19/24 History %-0.2 %-0.2 % eye drops (Dry Eye Relief) leflunomide 20 mg tablet (Arava) 20 mg PO QHS RA 03/22/18 09/01/24 History amlodipine 5 mg tablet 7.5 mg PO QHS BP 08/15/22 09/01/24 History mometasone 50 mcg/actuation nasal 2 spray intranasal .QAM ALLERGIES 08/15/22 09/01/24 History spray ergocalciferol (vitamin D2) 1,250 1,250 mcg PO .EVERY OTHER WEEK 11/05/22 08/26/24 History mcg (50,000 unit) capsule (Vitamin SUPPELEMNT D2) mecobalamin (vitamin B12) 1,000 1,000 mcg sublingual QHS SUPPLEMENT 12/06/22 09/01/24 History mcg disintegrating tablet,sublingual abatacept 50 mg/0.4 mL 50 mg subcut QMONTH RA 12/17/22 07/02/24 History subcutaneous syringe (Orencia) polyethylene glycol 3350 17 4 g PO PRN PRN Constipation 01/09/23 Unknown History gram/dose oral powder (Miralax) [id number] See Rx Instructions PO .COMPLEX 09/25/23 09/01/24 Rx 36,000-114,000-180,000 unit #300 caps capsule,delay rel (Creon) acetaminophen 500 mg tablet 1,000 mg PO Q6H PRN fever or pain 11/15/23 09/01/24 History atorvastatin 80 mg tablet 80 mg PO QHS 11/15/23 09/01/24 History hydrocortisone 2.5 % topical cream 1 applic [place] BID PRN Crohn's 11/29/23 Unknown Rx with perineal applicator disease #30 grams meclizine 25 mg tablet 25 mg PO DAILY PRN PRN dizziness 03/17/24 Unknown History budesonide 3 mg 6 mg (2 x 3 mg) PO DAILY #60 caps 04/09/24 09/01/24 Rx capsule,delayed,extended release pantoprazole 40 mg tablet,delayed 40 mg PO DAILY #90 TABLETS 05/01/24 09/01/24 Rx release alprazolam 1 mg tablet 1 mg PO TID 30 days #90 tabs 08/31/24 09/01/24 Rx bupropion HCl (smoking deter) 150 150 mg PO QHS 09/02/24 09/01/24 History mg tablet,12 hr sustained-release(smoking deterrent) methylprednisolone 4 mg tablets in PO UD 09/02/24 09/01/24 History a dose pack tramadol 50 mg tablet 50 mg PO Q6H PRN PRN pain 09/02/24 09/01/24 History promethazine 25 mg tablet 25 mg PO Q6H PRN PRN Nausea #60 09/14/24 Unknown Rx tabs dicyclomine 10 mg capsule 10 mg PO TID PRN for abdominal 09/17/24 Unknown Rx pain #90 caps hydrocodone-acetaminophen 5-325mg 1 tab PO Q6H PRN pain 15 days #30 09/18/24 Unknown Rx 5mg-325mg tabs clindamycin HCl 300 mg capsule 300 mg PO 4X/DAY 7 days #28 caps 09/25/24 Unknown Rx fluconazole 150 mg tablet 150 mg PO Q3D 3 doses #3 tabs 09/25/24 Unknown Rx oxycodone 10 mg tablet 10 mg PO Q6H PRN pain 5 days #20 09/25/24 Unknown Rx tabs Allergy/AdvReac Type Severity Reaction Status Date / Time doxycycline calcium (From Allergy Anaphylaxis Verified 09/24/24 18:49 Vibramycin) doxycycline hyclate (From Allergy Anaphylaxis Verified 09/24/24 18:49 Vibramycin) doxycycline monohydrate Allergy Anaphylaxis Verified 09/24/24 18:49 (From Vibramycin) NSAIDS (Non-Steroidal Allergy Anaphylaxis Verified 09/24/24 18:49 Anti-Inflamma duloxetine (From Cymbalta) AdvReac HEADACHE Verified 09/24/24 18:49 AND UPSET STOMACH hydrocodone bitartrate (From AdvReac STOMACH Verified 09/24/24 18:49 Vicodin) UPSET hydromorphone HCl (From AdvReac Vomiting Verified 09/24/24 18:49 Dilaudid) morphine AdvReac Vomiting Verified 09/24/24 18:49 Family History Mother Asthma Hypertension Kidney disease Father Asthma Myocardial infarction Daughter Asthma Diabetes Hypertension Sister Asthma Hypertension Surgical History History of total right knee replacement (TKR) S/P total knee arthroplasty Hx of esophagogastroduodenoscopy History of cardiac catheterization S/P repair of paraesophageal hernia History of Vanessa fundoplication H/O adenoidectomy History of tonsillectomy H/O hernia repair History of total left knee replacement Hx of section H/O shoulder surgery Social History household members: family housing: house Smoking Status: Former smoker quit date: 07/29/13 alcohol intake: never substance use type: does not use ROS <Dr. Pawel Cason MD - Last Filed: 09/24/24 23:05> ROS ED Constitutional Constitutional ED: Denies chills, fever(s), subjective, sweats or weight loss Eyes Eyes: Denies blurry vision or change in vision ENT ENT ED: Denies ear pain, rhinorrhea or sore throat Cardiovascular Cardiovascular: Denies chest pain, palpitations or racing heartbeat Respiratory/Chest Respiratory/Chest: Denies cough, dyspnea or dyspnea on exertion Gastrointestinal Gastrointestinal: Denies abdominal pain, constipation, diarrhea, nausea or vomiting Genitourinary Genitourinary ED: Reports urinary frequency; Denies dysuria or hematuria Musculoskeletal Musculoskeletal: Denies arthralgias, back pain or myalgias Endocrine Endocrinology: Denies cold intolerance or heat intolerance Hematologic/Lymphatic Hematologic/Lymphatic: Reports systems reviewed and no addt'l complaints, except as documented EXAM <Dr. Pawel Cason MD - Last Filed: 09/24/24 23:05> Physical Exam Const Vital Signs: 09/24/24 18:46 09/24/24 20:46 09/24/24 22:00 Temperature 98.1 F Temperature Source Temporal Pulse Rate 88 78 Respiratory Rate 16 Blood Pressure 133/80 H 142/81 H 140/89 H Blood Pressure Mean 97 101 106 Pulse Ox 96 96 Oxygen Delivery Method Room Air 09/25/24 00:00 Temperature Temperature Source Pulse Rate 77 Respiratory Rate 16 Blood Pressure 124/75 H Blood Pressure Mean 91 Pulse Ox 95 Oxygen Delivery Method Room Air Positive well nourished and well developed Constitutional Narrative: BMI is 33.3. Patient appears uncomfortable. General Appearance ED: well developed and pallor; Negative for cyanotic, diaphoretic or NAD HEENT Reports dry mucous membranes HEENT Narrative: Head is atraumatic normocephalic. Ears normal. Nares patent. Mouth ED: Yes dry mucous membranes Mouth: dry mucous membranes Eyes PERRL and EOMs intact bilaterally General Eye ED: Negative for pale conjunctiva or scleral icterus Neck no lymphadenopathy, supple and no JVD Chest Wall inspection of chest normal and palpation of chest normal Resp normal respiratory effort and clear to auscultation bilaterally Cardio regular rate, regular rhythm, S1 normal heart sound, S2 normal heart sound and no murmurs GI normal to inspection, nondistended, normoactive bowel sounds, non-tender and non-distended; Negative for hepatosplenomegaly GI Narrative: Patient's incision site is noted right side of the anus. There is no drainage. She is very tender. There is fluctuant. Back/Spine no CVA tenderness Neuro oriented x3 and CN's II-XII intact bilaterally Sensorium / Orientation: alert Psych mental status grossly normal Skin No no wounds General Skin Exam: elasticity normal and pallor; Negative for jaundice <Dr. Gaudencio Ambriz DO - Last Filed: 09/25/24 02:02> Physical Exam Const Vital Signs: 09/24/24 18:46 09/24/24 20:46 09/24/24 22:00 Temperature 98.1 F Temperature Source Temporal Pulse Rate 88 78 Respiratory Rate 16 Blood Pressure 133/80 H 142/81 H 140/89 H Blood Pressure Mean 97 101 106 Pulse Ox 96 96 Oxygen Delivery Method Room Air 09/25/24 00:00 Temperature Temperature Source Pulse Rate 77 Respiratory Rate 16 Blood Pressure 124/75 H Blood Pressure Mean 91 Pulse Ox 95 Oxygen Delivery Method Room Air [facility] <Dr. Pawel Cason MD - Last Filed: 09/24/24 23:05> [facility] Narrative Medical decision making narrative: Patient has a recurrent perianal/perineal abscess that is 5.4 x 1.6 cm in size noted on CAT scan that was performed yesterday. Patient was treated with Zosyn since she has no allergy to penicillin. Appropriate blood work was obtained to assess white count endorgan dysfunction. Will contact general surgery since surgery initially operated on her in the OR. The CAT scan was on September 02 did not September 22 as I thought since patient states she had a CAT scan the other day. Because of this a CAT scan was ordered of the pelvis. Once this is back we will contact Dr. Tamez. History & Record Review Additional record(s) reviewed:: Prior inpatient record, Prior outpatient record and Prior labs Lab Data Attestation: I reviewed the patient's lab results. Lab results narrative: White count is 10.1. H&H is 10.7 and 34.4. She does not have a shift today. Lactate is normal. Renal function is normal. Comparison labs were September 03. Labs: Laboratory Results - last 24 hr 09/24/24 19:15 WBC 10.1 RBC 4.14 L Hgb 10.7 L Hct 34.4 L MCV 83.1 MCH 25.8 L MCHC 31.1 L RDW Std Deviation 49.1 H RDW Coeff of Pepe 16.3 H Plt Count 258 MPV 11.3 Immature Gran % (Auto) 1.000 H Neut % (Auto) 69.1 Lymph % (Auto) 15.7 L [place] % (Auto) 11.2 H Eos % (Auto) 1.9 Baso % (Auto) 1.1 H Absolute Neuts (auto) 7.0 Absolute Lymphs (auto) 1.59 Nucleated RBC % 0 Sodium 133 Potassium 3.9 Chloride Direct 99 Carbon Dioxide 23.1 Anion Gap 11 BUN 10 Creatinine 0.69 L Estim Creat Clear Calc 72.55 Est GFR (MDRD) Non-Af 96 BUN/Creatinine Ratio 15.0 Glucose 78 Lactic Acid < 1.0 Calcium 8.7 Total Bilirubin 0.18 AST 20 ALT 10 Alkaline Phosphatase 97 Total Protein 6.8 Albumin 3.5 Globulin 3.3 Albumin/Globulin Ratio 1.0 Radiography Diagnostic Testing: Clinical Impression(s) from Imaging Studies Pelvis CT 09/24/24 21:10 IMPRESSION: Right posterior perirectal soft tissue thickening measuring approximately 5.5 x 3.7 by 4.6 cm axial 63, sagittal 93 and coronal 78 is consistent with history of rectal cancer. Within the adjacent peroneal soft tissues a tiny low-density peripherally enhancing collection measuring around 6 mm is noted sagittal 95, coronal 68 and axial 65 consistent with tiny residual area of abscess. No soft tissue gas. Right labial and peroneal subcutaneous soft tissue stranding. No evidence of pelvic free fluid. One or more dose reduction techniques were used (e.g., Automated exposure control, adjustment of the mA and/or kV according to patient size, use of iterative reconstruction technique). 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 <Dr. Gaudencio Ambriz, DO - Last Filed: 09/25/24 02:02> [facility] Lab Data Labs: Laboratory Results - last 24 hr 09/24/24 19:15 WBC 10.1 RBC 4.14 L Hgb 10.7 L Hct 34.4 L MCV 83.1 MCH 25.8 L MCHC 31.1 L RDW Std Deviation 49.1 H RDW Coeff of Pepe 16.3 H Plt Count 258 MPV 11.3 Immature Gran % (Auto) 1.000 H Neut % (Auto) 69.1 Lymph % (Auto) 15.7 L [place] % (Auto) 11.2 H Eos % (Auto) 1.9 Baso % (Auto) 1.1 H Absolute Neuts (auto) 7.0 Absolute Lymphs (auto) 1.59 Nucleated RBC % 0 Sodium 133 Potassium 3.9 Chloride Direct 99 Carbon Dioxide 23.1 Anion Gap 11 BUN 10 Creatinine 0.69 L Estim Creat Clear Calc 72.55 Est GFR (MDRD) Non-Af 96 BUN/Creatinine Ratio 15.0 Glucose 78 Lactic Acid < 1.0 Calcium 8.7 Total Bilirubin 0.18 AST 20 ALT 10 Alkaline Phosphatase 97 Total Protein 6.8 Albumin 3.5 Globulin 3.3 Albumin/Globulin Ratio 1.0 Radiography Diagnostic Testing: Clinical Impression(s) from Imaging Studies Pelvis CT 09/24/24 21:10 IMPRESSION: Right posterior perirectal soft tissue thickening measuring approximately 5.5 x 3.7 by 4.6 cm axial 63, sagittal 93 and coronal 78 is consistent with history of rectal cancer. Within the adjacent peroneal soft tissues a tiny low-density peripherally enhancing collection measuring around 6 mm is noted sagittal 95, coronal 68 and axial 65 consistent with tiny residual area of abscess. No soft tissue gas. Right labial and peroneal subcutaneous soft tissue stranding. No evidence of pelvic free fluid. One or more dose reduction techniques were used (e.g., Automated exposure control, adjustment of the mA and/or kV according to patient size, use of iterative reconstruction technique). 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 Patient was signed out to me while awaiting the results of her CT scan. CT scan showed a small 6 mm area of fluctuance concerning for abscess and otherwise surrounding soft tissue inflammation consistent with squamous cell carcinoma and perirectal/perianal cellulitis. The case was discussed with the general surgeon Dr. Tamez. He feels that with such a small area of infection stable vitals and stable labs there is no need for admission. He recommends outpatient antibiotics and follow-up. The patient was reevaluated and is agreeable to this plan of care if she can have something improved for pain control as Hertel is insufficient. Therefore this time we will place her on clindamycin for the area of infection and placed her on oxycodone for pain management but as vitals are stable and overall workup does not show signs of systemic infection or area in need of repeat surgical procedure she is otherwise safe for discharge Discharge Plan Triage Chief Complaint: Complaint ED Provider: Pawel Cason Dx/Rx/DC Orders Clinical Impression: Squamous cell carcinoma, Perirectal cellulitis, COPD (chronic obstructive pulmonary disease), Crohn disease Instructions: Cellulitis Dc, Cancer Overview Prescriptions: New oxycodone 10 mg tablet 10 mg PO Q6H PRN (Reason: pain) 5 Days Qty: 20 0RF clindamycin HCl 300 mg capsule 300 mg PO 4X/DAY 7 Days Qty: 28 0RF fluconazole 150 mg tablet 150 mg PO Q3D Qty: 3 0RF No Action mometasone 50 mcg/actuation spray,non-aerosol 2 spray intranasal .QAM Rx Instructions: administer into each nostril amlodipine 5 mg tablet 7.5 mg PO QHS mecobalamin (vitamin B12) 1,000 mcg tablet,disintegrating 1,000 mcg sublingual QHS Rx Instructions: place tablet under tongue and allow to dissolve for at least30 secs before swallowing Orencia 50 mg/0.4 mL syringe 50 mg subcut QMONTH acetaminophen 500 mg tablet 1,000 mg PO Q6H PRN (Reason: fever or pain) atorvastatin 80 mg tablet 80 mg PO QHS clopidogrel 75 MG tablet 75 mg PO QHS Patient Comments: BLOOD THINNER albuterol sulfate 1 INHALER inhaler 2 puff INHALATION Q4H PRN PRN (Reason: Shortness Of Breath) Patient Comments: BREATING fluoxetine 20 MG capsule 60 mg PO QHS Patient Comments: ANXIETY Dry Eye Relief 15 ML drops 1 drp OP 4X/DAY leflunomide [Arava] 20 tablet 20 mg PO QHS Patient Comments: ergocalciferol (vitamin D2) [Vitamin D2] 1,250 mcg (50,000 unit) Capsule 1,250 mcg PO .EVERY OTHER WEEK polyethylene glycol 3350 [Miralax] 17 gram/dose powder 4 g PO PRN PRN (Reason: Constipation) meclizine 25 mg tablet 25 mg PO DAILY PRN PRN (Reason: dizziness) tramadol 50 mg tablet 50 mg PO Q6H PRN PRN (Reason: pain) methylprednisolone 4 mg tablets,dose pack PO UD Patient Comments: STARTED ON 08/31/24 bupropion HCl (smoking deter) 150 mg tablet extended release 12 hr 150 mg PO QHS Creon 36,000-114,000- 180,000 unit capsule,delayed release(DR/EC) See Rx Instructions PO .COMPLEX Qty: 300 11RF Rx Instructions: take 1-2 with snacks and 2-3 with meals hydrocortisone 2.5 % cream with perineal applicator 1 applic FL BID PRN (Reason: Crohn's disease) Qty: 30 1RF budesonide 3 mg capsule,delayed,extend.release 6 mg PO DAILY Qty: 60 5RF pantoprazole 40 mg tablet,delayed release (DR/EC) 40 mg PO DAILY Qty: 90 0RF alprazolam 1 mg tablet 1 mg PO TID 30 Days Qty: 90 2RF promethazine 25 mg tablet 25 mg PO Q6H PRN PRN (Reason: Nausea) Qty: 60 2RF dicyclomine 10 mg capsule 10 mg PO TID PRN (Reason: for abdominal pain) Qty: 90 3RF hydrocodone-acetaminophen 5-325 mg tablet 1 tab PO Q6H PRN (Reason: pain) 15 Days Qty: 30 0RF Primary Care Provider: Ciara Dhillon NP Referrals: Gee Garcia MD [Med Staff - Active Staff] - Ciara Dhillon NP, [employer]INE [employer]ATOR-[employer] [Primary Care Provider] - Activity Restrictions/Additional Instructions: Please take the prescribed medications as directed and follow-up with your surgeon for repeat evaluation. Return to the ER should you have any further concerns Print Language: [place] Disposition Disposition: Home, Self Care
--- NOTE | 2024-09-24 21:10 | CT_ITS ---
PROCEDURE: PELVIS WITH IV CONTRAST REASON FOR EXAM: Perirectal pain, fullness, concern for recurrent abscess COMPARISON: September 02, 2024 TECHNIQUE: CT of the pelvis with contrast with coronal and sagittal reformatted images CONTRAST: 96 cc Isovue 370 FINDINGS: [place] artifact from left hip replacement. Right posterior perirectal soft tissue thickening measuring approximately 5.5 x 3.7 by 4.6 cm axial 63, sagittal 93 and coronal 78 is consistent with history of rectal cancer. Within the adjacent peroneal soft tissues a tiny low-density peripherally enhancing collection measuring around 6 mm is noted sagittal 95, coronal 68 and axial 65 consistent with tiny residual area of abscess. No soft tissue gas. Right labial and peroneal subcutaneous soft tissue stranding. No evidence of pelvic free fluid. The bladder, uterus and adnexa appear within limits considering spray artifact from hip replacement. Diverticulosis without diverticulitis. No bowel dilation visualized abdomen and pelvis. The appendix is not identified. No inguinal, pelvic sidewall, iliac lymphadenopathy identified. CT/Pelvis WITH IV Contrast IMPRESSION: Right posterior perirectal soft tissue thickening measuring approximately 5.5 x 3.7 by 4.6 cm axial 63, sagittal 93 and coronal 78 is consistent with history of rectal cancer. Within the adjacent peroneal s oft tissues a tiny low-density peripherally enhancing collection measuring around 6 mm is noted sagittal 95, coronal 68 and axial 65 consistent with tiny residual area of abscess. No soft tissue gas. Right labial and peroneal subcutaneous soft tissue stranding. No evidence of pelvic free fluid. One or more dose reduction techniques were used (e.g., Automated exposure contr ol, adjustment of the mA and/or kV according to patient size, use of iterative reconstruction technique). Reading Location: [id number]
[2024-09-24 22:00] VITALS: BP 140/89; PULSE 78; O2SAT 96
[2024-09-25] VITALS: BP 124/75; PULSE 77; RESP 16; O2SAT 95
[2024-09-25 02:00] VITALS: BP 154/69; PULSE 95; RESP 18; TEMP 36.7; O2SAT 96
[2024-09-25] MEDS: oxyCODONE 5 MG Tablet 10 MG PO (02:04)
== END 2024-09-25 02:05 | disposition home or self-care (01) ==
PROVIDERS: Emergency Provider Emergency Medicine; PCP Nurse Practitioner Family; Referring Provider Emergency Medicine; Visit Provider Emergency Medicine
DX: L02.215 Cutaneous abscess of perineum (principal); K50.90 Crohn's disease, unspecified, without complications; I11.0 Hypertensive heart disease with heart failure; I50.32 Chronic diastolic (congestive) heart failure; J44.9 Chronic obstructive pulmonary disease, unspecified; D01.3 Carcinoma in situ of anus and anal canal; E78.5 Hyperlipidemia, unspecified; R35.0 Frequency of micturition; Z79.02 Long term (current) use of antithrombotics/antiplatelets; Z79.899 Other long term (current) drug therapy; Z87.891 Personal history of nicotine dependence
CPT/HCPCS: 72193; 80053; 83605; 85025; 87040; 96365; 96375; 99284; Q9967; A4216

== ENCOUNTER → 2024-10-02 | Outpatient (CLI) | payer MEDICARE, MEDICAID, SELFPAY ==
[2024-10-02 10:00] VITALS: BP 172/75; PULSE 72; RESP 16; TEMP 36.4; O2SAT 95; BMI 34.4
== END | disposition home or self-care (01) ==
LOC: RAD 09:46
PROVIDERS: PCP Nurse Practitioner Family; Referring Provider Internal Medicine Hematology & Oncology; Visit Provider Internal Medicine Hematology & Oncology
DX: Z45.2 Encounter for adjustment and management of vascular access device (principal)
CPT/HCPCS: 36569

== ENCOUNTER → 2024-10-19 | Outpatient (CLI) | payer MEDICARE, SELFPAY ==
--- NOTE | 2024-10-19 14:02 | VDUE_ITS ---
Reason For Study Reason For Study: Left arm swelling Right Proximal Left Proximal Right subclavian vein is spontaneous, widely patent, Left jugular vein is spontaneous, widely patent, phasic, with no intraluminal echogenicity noted. phasic, with no intraluminal echogenicity noted. Left subclavian vein is spontaneous, widely patent, phasic, with no intraluminal echogenicity noted. Left Arm Acute deep vein thrombosis is noted in the left Axillary V. It is patially NONCOMPRESSIBLE. Left brachial vein is compressible. Left cephalic vein is compressible. Left basilic vein is compressible. Left Lower Arm Left radial vein is compressible. Left ulnar vein is compressible. Procedure This was a unilateral left upper extremity venous doppler examination. Exam performed in department. A preliminary report was called and/or faxed to [facility]. VL/Venous Duplex US, Unilateral Interpretation Summary Acute deep vein thrombosis noted in left axillary vein Ordering Physician: Jean-Paul Cesar Referring Physician: Ciara Dhillon Performed By: Kamilah Grider RVT ???
== END | disposition home or self-care (01) ==
PROVIDERS: PCP Nurse Practitioner Family; Referring Provider Internal Medicine Hematology & Oncology; Visit Provider Internal Medicine Hematology & Oncology
DX: Z45.2 Encounter for adjustment and management of vascular access device (principal); C21.0 Malignant neoplasm of anus, unspecified; M79.89 Other specified soft tissue disorders
CPT/HCPCS: 93971

== ENCOUNTER 2024-10-24 20:58 | Emergency (ER) | payer MEDICARE, SELFPAY ==
[2024-10-24] VITALS (10 sets, daily range): BP systolic 150–160; BP diastolic 66–71; PULSE 74–87; RESP 12–22; TEMP 36.7–36.8; O2SAT 94–99; BMI 36.3
--- NOTE | 2024-10-24 21:17 | CT_ITS ---
PROCEDURE: CTA CHEST W/WO CONTRAST 10/24/2024 REASON FOR EXAM: ABDOMINAL PAIN TECHNIQUE: CTA imaging of the abdomen and pelvis with intravenous contrast. Multiplanar and MIP reconstructions performed. One or more dose reduction techniques were used (e.g., Automated exposure control, adjustment of the mA and/or kV according to patient size, use of iterative reconstruction technique). COMPARISON: 12/13/2023; 10/24/2024 FINDINGS: Lungs/pleura: Wedge-shaped area of pleural-based opacity in the right lung base with a trace associated pleural effusion.There is a calcified pulmonary nodule in the left upper lobe. Mild fibrotic changes are present in the upper lung barrios. Pulmonary arteries: No evidence of pulmonary embolus. Cardiovascular: The heart is normal in size.Mild coronary artery calcifications are present.Mild scattered atherosclerotic calcifications are present. Pericardium: No effusion. Mediastinum: Unremarkable. Lymph nodes: There is a stable partially calcified nodule or lymph node in the prevascular region measuring 2.7 x 1.7 cm. Additional smaller partially calcified lymph nodes are present in the left hilar region. Bones: No acute osseous abnormality.Chronic fracture deformities present of multiple anterior bilateral ribs. Soft tissues: Unremarkable. Upper abdomen: Small hiatal hernia with a Vanessa fundoplication present. CT/CTA Chest W/WO Contrast IMPRESSION: 1. No acute pulmonary embolus identified. 2. Chronic pleural-based wedge-shaped area of consolidation in the right lung b ase with volume loss and an associated trace pleural effusion, possibly postinfectious/inflammatory. A chronic pulmonary in farction could also have this appearance. 3. Stable prominent partially calcified mediastinal lymph node enlargement, lik joseph due to remote granulomatous disease. 4. Mild pulmonary fibrotic changes in the upper lung zones. Reading [facility]
--- NOTE | 2024-10-24 21:17 | EKG12_ITS ---
Test Reason : PAIN Blood Pressure : */* mmHG Vent. Rate : 81 BPM Atrial Rate : 81 BPM P-R Int : 142 ms QRS Dur : 90 ms QT Int : 388 ms P-R-T Axes : 75 44 53 degrees QTcB Int : 450 ms Normal sinus rhythm Left ventricular hypertrophy with repolarization abnormality ( Sokolow-Raines ) Abnormal ECG When compared with ECG of 13-Dec-2015 16:38, Nonspecific T wave abnormality now evident in Lateral leads Confirmed by Russel Wallis ([id number]), restaurant expeditor SARAH SIDDIQI ([id number]) on 10/29/2024 10:02:59 AM Referred By: Confirmed By: Russel Wallis
--- NOTE | 2024-10-24 21:17 | CT_ITS ---
PROCEDURE: ABDOMEN/PELVIS W IV CONT ONLY 10/24/2024 REASON FOR EXAM: ABDOMINAL PAIN TECHNIQUE: Abdomen and pelvis CT with intravenous contrast. Coronal and Sagittal reconstruction series were provided. One or more dose reduction techniques were used (e.g., Automated exposure control, adjustment of the mA and/or kV according to patient size, use of iterative reconstruction technique. COMPARISON: 09/02/2024; FINDINGS: Lower chest: There is a stable area of wedge-shaped consolidation with volume loss in the right lung base with an associated trace pleural effusion. Liver: Unremarkable. Biliary/gallbladder: Unremarkable. Pancreas: Unremarkable. Spleen: Unremarkable. Adrenal glands: Unremarkable. Kidneys: Unremarkable. Gastrointestinal/peritoneum: An enteric clip is present in the gastric antral lumen. There is a small hiatal hernia with postoperative changes present of a Vanessa fundoplication. A small clip is also present in the transverse portion of the colon there are no dilated loops of bowel. Mild colonic diverticulosis is present.The appendix is unremarkable.No free air or free fluid. Vascular: Mild scattered atherosclerotic calcifications are present. Lymph nodes: No enlarged lymph nodes by CT size criteria. Pelvic organs: Unremarkable. Bladder: Indwelling Markham catheter in satisfactory position. Bones: There is a left total hip arthroplasty. Soft tissues: Unremarkable. CT/Abdomen/Pelvis W IV Cont ONLY IMPRESSION: 1. No acute abnormality of the abdomen and pelvis. 2. Indwelling Markham catheter in satisfactory position. 3. Wedge-shaped, pleural-based opacity in the right lung base with volume loss and an associated trace pleural effusion, possibly a chronic postinfectious/inflammatory process. Reading Location: [facility]
--- NOTE | 2024-10-24 21:29 | EX.ED.DYSGE1 ---
HPI <SWATHI Whatley - Last Filed: 10/24/24 22:00> History of Present Illness Chief Complaint: Shortness of Breath Narrative Narrative: Patient is a 64-year-old female with history of Crohn's disease, CHF COPD for myalgia, RA who is currently being treated for rectal cancer, vaginal wall cancer. Patient is currently seeing Dr. Smith, diagnosed in the early middle August 2024. Patient has undergone 1 round of chemotherapy as well as radiation Saturday through Saturday. Patient's next course of radiation and chemotherapy will be November 02, 2024. Patient states over the last day and a half, she is been having right sided chest pain, today she became more short of breath. She did have a port that did develop a clot, she is currently on Eliquis. This was found out October 20, 2024. Patient did call the on-call oncologist who told him to go to the [facility]. Patient also states that over the last several weeks has been having difficulty urinating, and not feeling like she is emptying. <Dr. Rigoberto Corbett DO - Last Filed: 10/25/24 23:04> Narrative Narrative: Patient is a 64-year-old female with history of Crohn's disease, CHF COPD for myalgia, RA who is currently being treated for rectal cancer, vaginal wall cancer. Patient is currently seeing Dr. Cesar, diagnosed in the early middle August 2024. Patient has undergone 1 round of chemotherapy as well as radiation Saturday through Saturday. Patient's next course of radiation and chemotherapy will be November 02, 2024. Patient states over the last day and a half, she is been having right sided chest pain, today she became more short of breath. She did have a PICC line that did develop a clot, she is currently on Eliquis. This was found out October 20, 2024. Patient did call the on-call oncologist who told him to go to the [facility]. Patient also states that over the last several weeks has been having difficulty urinating, and not feeling like she is emptying. 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 Mass of anus Perirectal abscess History of Crohn's disease Psoriatic arthritis Psoriasis Internal derangement of right knee Wears glasses Post-menopausal Depression Anxiety Ambulates with cane Injury of back Difficulty swallowing History of IBS History of hiatal hernia Former smoker Shortness of breath on exertion Chronic cough History of echocardiogram History of stress test Hypertension Cardiology follow-up encounter History of CHF (congestive heart failure) History of irregular heartbeat Acute pharyngitis, unspecified URI (upper respiratory infection) Contact with or suspected exposure to other viral communicable disease History of partial replacement of left hip joint using bipolar prosthesis Vitamin D deficiency HLD (hyperlipidemia) Insomnia Dry eye Regular astigmatism, bilateral PVCs (premature ventricular contractions) Coronary artery stenosis Chronic diastolic CHF (congestive heart failure) Iron malabsorption Osteoarthritis Lumbar spondylosis Osteoporosis Congenital cataract Intermittent palpitations Nausea TIA (transient ischemic attack) Acute maxillary sinusitis, unspecified Acute ethmoidal sinusitis, unspecified Acute frontal sinusitis, unspecified COPD exacerbation Foreign body in conjunctival sac, left eye, initial encounter Acute bacterial conjunctivitis Influenza A Acute bronchitis Back pain Limb weakness Asthma Anemia Arthritis Home Medications ?Medication ?Instructions ?Recorded ?Last Taken ?Type albuterol sulfate 90 mcg/actuation 2 puff inhalation Q4H PRN PRN 03/13/15 Unknown History aerosol inhaler Shortness Of Breath fluoxetine 20 mg capsule 60 mg PO QHS MENTAL HEALTH 12/13/15 09/01/24 History peg [id number] 1 1 drp OP 4X/DAY DRY EYES 11/13/17 03/19/24 History %-0.2 %-0.2 % eye drops (Dry Eye Relief) leflunomide 20 mg tablet (Arava) 20 mg PO QHS RA 03/22/18 09/01/24 History amlodipine 5 mg tablet 7.5 mg PO QHS BP 08/15/22 09/01/24 History mometasone 50 mcg/actuation nasal 2 spray intranasal .QAM ALLERGIES 08/15/22 09/01/24 History spray ergocalciferol (vitamin D2) 1,250 1,250 mcg PO .EVERY OTHER WEEK 11/05/22 08/26/24 History mcg (50,000 unit) capsule (Vitamin SUPPELEMNT D2) mecobalamin (vitamin B12) 1,000 1,000 mcg sublingual QHS SUPPLEMENT 12/06/22 09/01/24 History mcg disintegrating tablet,sublingual abatacept 50 mg/0.4 mL 50 mg subcut QMONTH RA 12/17/22 07/02/24 History subcutaneous syringe (Orencia) Held on 10/02/24. Instructions: due to chemo polyethylene glycol 3350 17 4 g PO PRN PRN Constipation 01/09/23 Unknown History gram/dose oral powder (Miralax) [id number] See Rx Instructions PO .COMPLEX 09/25/23 09/01/24 Rx 36,000-114,000-180,000 unit #300 caps capsule,delay rel (Creon) acetaminophen 500 mg tablet 1,000 mg PO Q6H PRN fever or pain 11/15/23 09/01/24 History atorvastatin 80 mg tablet 80 mg PO QHS 11/15/23 09/01/24 History meclizine 25 mg tablet 25 mg PO DAILY PRN PRN dizziness 03/17/24 Unknown History budesonide 3 mg 6 mg (2 x 3 mg) PO DAILY #60 caps 04/09/24 09/01/24 Rx capsule,delayed,extended release pantoprazole 40 mg tablet,delayed 40 mg PO DAILY #90 TABLETS 05/01/24 09/01/24 Rx release alprazolam 1 mg tablet 1 mg PO TID 30 days #90 tabs 08/31/24 09/01/24 Rx bupropion HCl (smoking deter) 150 150 mg PO QHS 09/02/24 09/01/24 History mg tablet,12 hr sustained-release(smoking deterrent) promethazine 25 mg tablet 25 mg PO Q6H PRN PRN Nausea #60 09/14/24 Unknown Rx tabs dicyclomine 10 mg capsule 10 mg PO TID PRN for abdominal 09/17/24 Unknown Rx pain #90 caps apixaban 5 mg (74 tabs) tablets in 10 mg PO Q12H 10/24/24 Unknown History a dose pack (Eliquis DVT-PE Treat 30D Start) cholecalciferol (vitamin D3) 1,250 1,250 mcg PO DAILY 10/24/24 Unknown History mcg (50,000 unit) capsule diphenhydramine HCl 12.5 mg/5 mL 25 mg PO Q4H PRN PRN mouth 10/24/24 Unknown History oral liquid irritation Held on 10/24/24. Instructions: sores healed furosemide 20 mg tablet 20 mg PO DAILY 10/24/24 Unknown History ondansetron HCl 8 mg tablet 8 mg PO Q8H PRN PRN nausea/vomiting 10/24/24 Unknown History potassium chloride 10 mEq 10 meq PO BID 10/24/24 Unknown History tablet,extended release prochlorperazine maleate 10 mg 10 mg PO Q6H PRN PRN nausea and 10/24/24 Unknown History tablet vomiting Allergy/AdvReac Type Severity Reaction Status Date / Time doxycycline calcium (From Allergy Anaphylaxis Verified 10/24/24 21:03 Vibramycin) doxycycline hyclate (From Allergy Anaphylaxis Verified 10/24/24 21:03 Vibramycin) doxycycline monohydrate Allergy Anaphylaxis Verified 10/24/24 21:03 (From Vibramycin) NSAIDS (Non-Steroidal Allergy Anaphylaxis Verified 10/24/24 21:03 Anti-Inflamma duloxetine (From Cymbalta) AdvReac HEADACHE Verified 10/24/24 21:03 AND UPSET STOMACH hydrocodone bitartrate (From AdvReac STOMACH Verified 10/24/24 21:03 Vicodin) UPSET hydromorphone HCl (From AdvReac Vomiting Verified 10/24/24 21:03 Dilaudid) morphine AdvReac Vomiting Verified 10/24/24 21:03 Family History Mother Asthma Hypertension Kidney disease Father Asthma Myocardial infarction Daughter Asthma Diabetes Hypertension Sister Asthma Hypertension Surgical History History of total right knee replacement (TKR) S/P total knee arthroplasty Hx of esophagogastroduodenoscopy History of cardiac catheterization S/P repair of paraesophageal hernia History of Vanessa fundoplication H/O adenoidectomy History of tonsillectomy H/O hernia repair History of total left knee replacement Hx of section H/O shoulder surgery Social History household members: family housing: house Smoking Status: Former smoker quit date: 07/29/13 alcohol intake: never substance use type: does not use ROS <SWATHI Whatley - Last Filed: 10/24/24 22:00> ROS ED ROS Narrative Constitutional: Negative for fever, chills, weight loss, weakness Eyes: Negative for vision loss, vision change, double vision ENT: Negative for any sore throat, ear pain, congestion Cardiovascular: Negative for any tightness, palpitations. Positive for right-sided chest pain Respiratory: Negative for any cough, sputum production, hemoptysis. Positive for dyspnea, dyspnea on exertion, orthopnea Gastrointestinal: Negative for any abdominal pain, nausea, vomiting, diarrhea, constipation, blood in stool, blood in vomit : Negative for any urinary frequency, dysuria, retention, blood in urine Muscle skeletal: Negative for any neck pain, back pain Neurological: Negative for any headache, syncope, dizziness Skin: Negative for any rashes, itching, abrasions, lacerations Psychiatric: Negative for any depression, anxiety, stress, suicidal ideation, homicidal ideation Hematologic: Negative for any excessive bruising, easy bleeding EXAM <Jean-Paul Bates NP-Marga - Last Filed: 10/24/24 22:00> Physical Exam Narrative Exam Narrative: Vital signs reviewed. Patient on my initial evaluation did appear to be in mild distress secondary to pain to the right side of her chest. HEET: Head normocephalic atraumatic, TMs clear bilaterally. Posterior pharynx is clear, moist mucous membranes. Nares clear bilaterally. Neck: Supple with no lymphadenopathy or tenderness. No signs of meningismus. Cardiac: Regular rate and rhythm no murmurs gallops or rubs, equal peripheral pulses bilaterally. Respiratory: Lungs clear to auscultation bilaterally. Patient does show pain with deep inspiration however the lung sounds are clear. No chest tenderness. Abdomen: Soft, nondistended. No abdominal bruit or pulsatile masses. No hepatosplenomegaly. Patient has some tenderness to the lower suprapubic area. Extremities: No peripheral edema, no signs of gross trauma or deformity. Active full range of motion of all extremities. Neuro: Cranial nerves II through XII intact, no focal neurological deficits. Skin: Clean dry and intact with no rash, purpura, petechiae, vesicles or pustules. Backs/flank: No CVA tenderness, no midline spinal tenderness, no deformity. Psych: Normal mood and affect. No SI, HI or acute psychosis. Const Vital Signs: 10/24/24 20:58 10/24/24 21:32 10/24/24 21:45 Temperature 98.2 F Temperature Source Oral Pulse Rate 74 81 81 Respiratory Rate 18 21 H 16 Respiratory Effort Blood Pressure 160/66 H Blood Pressure Mean 97 Pulse Ox 99 98 Oxygen Delivery Method Room Air 10/24/24 21:49 10/24/24 21:50 10/24/24 22:03 Temperature 98.0 F Temperature Source Oral Pulse Rate 86 Respiratory Rate 20 H Respiratory Effort Normal Blood Pressure 153/71 H Blood Pressure Mean 98 Pulse Ox 96 Oxygen Delivery Method Room Air Room Air 10/24/24 22:08 10/24/24 22:15 10/24/24 22:30 Temperature Temperature Source Pulse Rate 87 84 82 Respiratory Rate 22 H 22 H 18 Respiratory Effort Blood Pressure Blood Pressure Mean Pulse Ox 97 94 95 Oxygen Delivery Method 10/24/24 22:31 10/24/24 22:45 10/24/24 23:00 Temperature 98.2 F Temperature Source Oral Pulse Rate 81 80 Respiratory Rate 22 H 12 Respiratory Effort Blood Pressure 153/71 H 150/70 H 150/70 H Blood Pressure Mean 94 88 96 Pulse Ox 96 96 Oxygen Delivery Method Room Air 10/24/24 23:00 Temperature Temperature Source Pulse Rate 80 Respiratory Rate 12 Respiratory Effort Blood Pressure Blood Pressure Mean Pulse Ox 96 Oxygen Delivery Method Positive well nourished and well developed General Appearance ED: well developed <Dr. Rigoberto Corbett, DO - Last Filed: 10/25/24 23:04> Physical Exam Const Vital Signs: 10/24/24 20:58 10/24/24 21:32 10/24/24 21:45 Temperature 98.2 F Temperature Source Oral Pulse Rate 74 81 81 Respiratory Rate 18 21 H 16 Respiratory Effort Blood Pressure 160/66 H Blood Pressure Mean 97 Pulse Ox 99 98 Oxygen Delivery Method Room Air 10/24/24 21:49 10/24/24 21:50 10/24/24 22:03 Temperature 98.0 F Temperature Source Oral Pulse Rate 86 Respiratory Rate 20 H Respiratory Effort Normal Blood Pressure 153/71 H Blood Pressure Mean 98 Pulse Ox 96 Oxygen Delivery Method Room Air Room Air 10/24/24 22:08 10/24/24 22:15 10/24/24 22:30 Temperature Temperature Source Pulse Rate 87 84 82 Respiratory Rate 22 H 22 H 18 Respiratory Effort Blood Pressure Blood Pressure Mean Pulse Ox 97 94 95 Oxygen Delivery Method 10/24/24 22:31 10/24/24 22:45 10/24/24 23:00 Temperature 98.2 F Temperature Source Oral Pulse Rate 81 80 Respiratory Rate 22 H 12 Respiratory Effort Blood Pressure 153/71 H 150/70 H 150/70 H Blood Pressure Mean 94 88 96 Pulse Ox 96 96 Oxygen Delivery Method Room Air 10/24/24 23:00 Temperature Temperature Source Pulse Rate 80 Respiratory Rate 12 Respiratory Effort Blood Pressure Blood Pressure Mean Pulse Ox 96 Oxygen Delivery Method <Dr. Gaudencio Ambriz DO - Last Filed: 10/25/24 00:51> Physical Exam Const Vital Signs: 10/24/24 20:58 10/24/24 21:32 10/24/24 21:45 Temperature 98.2 F Temperature Source Oral Pulse Rate 74 81 81 Respiratory Rate 18 21 H 16 Respiratory Effort Blood Pressure 160/66 H Blood Pressure Mean 97 Pulse Ox 99 98 Oxygen Delivery Method Room Air 10/24/24 21:49 10/24/24 21:50 10/24/24 22:03 Temperature 98.0 F Temperature Source Oral Pulse Rate 86 Respiratory Rate 20 H Respiratory Effort Normal Blood Pressure 153/71 H Blood Pressure Mean 98 Pulse Ox 96 Oxygen Delivery Method Room Air Room Air 10/24/24 22:08 10/24/24 22:15 10/24/24 22:30 Temperature Temperature Source Pulse Rate 87 84 82 Respiratory Rate 22 H 22 H 18 Respiratory Effort Blood Pressure Blood Pressure Mean Pulse Ox 97 94 95 Oxygen Delivery Method 10/24/24 22:31 10/24/24 22:45 10/24/24 23:00 Temperature 98.2 F Temperature Source Oral Pulse Rate 81 80 Respiratory Rate 22 H 12 Respiratory Effort Blood Pressure 153/71 H 150/70 H 150/70 H Blood Pressure Mean 94 88 96 Pulse Ox 96 96 Oxygen Delivery Method Room Air 10/24/24 23:00 Temperature Temperature Source Pulse Rate 80 Respiratory Rate 12 Respiratory Effort Blood Pressure Blood Pressure Mean Pulse Ox 96 Oxygen Delivery Method MDM <SWATHI Whatley - Last Filed: 10/24/24 22:00> [facility] Lab Data Labs: Laboratory Results - last 24 hr 10/24/24 10/24/24 21:23 23:18 Troponin T High Sens 14 Troponin T Hi Sens 2 Hr 13 NT pro BNP II 1345 H Radiography Diagnostic Testing: Clinical Impression(s) from Imaging Studies Abdomen/Pelvis CT 10/24/24 21:17 IMPRESSION: 1. No acute abnormality of the abdomen and pelvis. 2. Indwelling Markham catheter in satisfactory position. 3. Wedge-shaped, pleural-based opacity in the right lung base with volume loss and an associated trace pleural effusion, possibly a chronic postinfectious/inflammatory process. Reading Location: [facility] Chest CTA 10/24/24 21:17 IMPRESSION: 1. No acute pulmonary embolus identified. 2. Chronic pleural-based wedge-shaped area of consolidation in the right lung base with volume loss and an associated trace pleural effusion, possibly postinfectious/inflammatory. A chronic pulmonary infarction could also have this appearance. 3. Stable prominent partially calcified mediastinal lymph node enlargement, likely due to remote granulomatous disease. 4. Mild pulmonary fibrotic changes in the upper lung zones. Reading Location: [facility] EKG Normal sinus rhythm: Attestation: I personally reviewed and interpreted this EKG as follows: Interpretation: Sinus Rhythm Comments: Normal sinus rhythm, rate of 81 bpm, IA interval 142 ms, QRS duration 90 ms, no acute ST elevation, no acute infarct noted. Treatment and Re-Evaluation :: Differential diagnosis includes however is not limited to: Pulmonary embolus, lung metastasis, pleural effusion, pneumothorax, ACS, ND, urinary strictures, pelvic mass Patient did appear to be slightly uncomfortable in the bed, when taking deep breath patient did have pain. Patient is on Eliquis however is only been on it for short time I am concerned for pulmonary embolus, patient will receive a CTA of the chest as well as CT scan of the abdomen pelvis with IV contrast. Secondary to the patient having a mass as well as rectal, vaginal wall cancer I am concerned for further involvement. Patient will receive a Markham catheter. Basic laboratory values including troponins x 2 BNP, basic labs. Patient given 4 mg of morphine, 4 Zofran, IV fluids. All radiologic examinations were read, reviewed by the emergency department attending. From these reads, a plan of care will be put in place. <Dr. Rigoberto Corbett, DO - Last Filed: 10/25/24 23:04> [facility] Lab Data Attestation: I reviewed the patient's lab results. Labs: Laboratory Results - last 24 hr 10/24/24 10/24/24 21:23 23:18 Troponin T High Sens 14 Troponin T Hi Sens 2 Hr 13 NT pro BNP II 1345 H Radiography Diagnostic Testing: Clinical Impression(s) from Imaging Studies Abdomen/Pelvis CT 10/24/24 21:17 IMPRESSION: 1. No acute abnormality of the abdomen and pelvis. 2. Indwelling Markham catheter in satisfactory position. 3. Wedge-shaped, pleural-based opacity in the right lung base with volume loss and an associated trace pleural effusion, possibly a chronic postinfectious/inflammatory process. Reading Location: [facility] Chest CTA 10/24/24 21:17 IMPRESSION: 1. No acute pulmonary embolus identified. 2. Chronic pleural-based wedge-shaped area of consolidation in the right lung base with volume loss and an associated trace pleural effusion, possibly postinfectious/inflammatory. A chronic pulmonary infarction could also have this appearance. 3. Stable prominent partially calcified mediastinal lymph node enlargement, likely due to remote granulomatous disease. 4. Mild pulmonary fibrotic changes in the upper lung zones. Reading Location: [facility] Treatment and Re-Evaluation :: Differential diagnosis includes however is not limited to: Pulmonary embolus, lung metastasis, pleural effusion, pneumothorax, ACS, ND, urinary strictures, pelvic mass Patient did appear to be slightly uncomfortable in the bed, when taking deep breath patient did have pain. Patient is on Eliquis however is only been on it for short time I am concerned for pulmonary embolus, patient will receive a CTA of the chest as well as CT scan of the abdomen pelvis with IV contrast. Secondary to the patient having a mass as well as rectal, vaginal wall cancer I am concerned for further involvement. Patient will receive a Markham catheter. Basic laboratory values including troponins x 2 BNP, basic labs. Patient given 4 mg of morphine, 4 Zofran, IV fluids. All radiologic examinations were read, reviewed by the emergency department attending. From these reads, a plan of care will be put in place. Attending note: I have personally performed a face to face assessment of the patient and have reviewed the CRUZITO note. I personally made/approved the management plan and take responsibility for the patient management. I performed a substantive portion of the visit including all aspects of the following. 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 Followed by [facility] Dr. Cesar. First chemo treatment 3 weeks ago. She gets infusions for chemo for a week then she gets radiation therapy 5 days a week afterwards. Increasing dyspnea since yesterday right sided chest pain. She had a PICC line clot left side started on Eliquis 3 days ago she has been compliant. Chronic cough. No fevers. Increased urine urgency with decreased output suprapubic pain. Bladder ultrasound elevated Markham catheter placed for 100 cc output. Urine negative for infection. Abdomen CT resulted negative. CTA chest was obtained with cardiac workup. Initial troponin negative. 2350: Awaiting results of CTA chest. Current labs white count 2.6 hemoglobin 10.1 platelets 110. Compared to her recent labs on her MyChart this is stable. Potassium 3.1 creatinine 0.67. She was treated initially with Zofran morphine additional Reglan was given. Will order for potassium replacement orally. 0002: CTA chest negative for PE. Will continue Markham catheter to leg bag follow-up with urology. She will continue her Eliquis. Awaiting delta troponin at this time. Negative and tolerating p.o. intake. Can follow-up with her PCP. 0010: Patient tolerating oral intake. Delta troponin in the lab. Of note patient has Boncarbo at home to use along with antiemetics. <Dr. Gaudencio Ambriz, DO - Last Filed: 10/25/24 00:51> [facility] Narrative Medical decision making narrative: Patient was signed out to me while awaiting her delta troponin. The initial troponin was 14 the 2-hour delta was 13 indicating no acute coronary syndrome associated with her right sided chest discomfort. Vitals remained stable she is in no acute distress and has had improvement of symptoms and therefore is otherwise safe for discharge Lab Data Labs: Laboratory Results - last 24 hr 10/24/24 10/24/24 21:23 23:18 Troponin T High Sens 14 Troponin T Hi Sens 2 Hr 13 NT pro BNP II 1345 H Radiography Diagnostic Testing: Clinical Impression(s) from Imaging Studies Abdomen/Pelvis CT 10/24/24 21:17 IMPRESSION: 1. No acute abnormality of the abdomen and pelvis. 2. Indwelling Markham catheter in satisfactory position. 3. Wedge-shaped, pleural-based opacity in the right lung base with volume loss and an associated trace pleural effusion, possibly a chronic postinfectious/inflammatory process. Reading Location: [facility] Chest CTA 10/24/24 21:17 IMPRESSION: 1. No acute pulmonary embolus identified. 2. Chronic pleural-based wedge-shaped area of consolidation in the right lung base with volume loss and an associated trace pleural effusion, possibly postinfectious/inflammatory. A chronic pulmonary infarction could also have this appearance. 3. Stable prominent partially calcified mediastinal lymph node enlargement, likely due to remote granulomatous disease. 4. Mild pulmonary fibrotic changes in the upper lung zones. 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, Chest pain, Dyspnea Instructions: ED Chest Pain, Noncardiac, ED Dyspnea, ED Markham Catheter, Care, ED Urinary Retention, Female Prescriptions: No Action mometasone 50 mcg/actuation spray,non-aerosol 2 spray intranasal .QAM Rx Instructions: administer into each nostril amlodipine 5 mg tablet 7.5 mg PO QHS mecobalamin (vitamin B12) 1,000 mcg tablet,disintegrating 1,000 mcg sublingual QHS Rx Instructions: place tablet under tongue and allow to dissolve for at least30 secs before swallowing Orencia 50 mg/0.4 mL syringe 50 mg subcut QMONTH acetaminophen 500 mg tablet 1,000 mg PO Q6H PRN (Reason: fever or pain) atorvastatin 80 mg tablet 80 mg PO QHS albuterol sulfate 1 INHALER inhaler 2 puff INHALATION Q4H PRN PRN (Reason: Shortness Of Breath) Patient Comments: BREATING fluoxetine 20 MG capsule 60 mg PO QHS Patient Comments: ANXIETY Dry Eye Relief 15 ML drops 1 drp OP 4X/DAY leflunomide [Arava] 20 tablet 20 mg PO QHS Patient Comments: ergocalciferol (vitamin D2) [Vitamin D2] 1,250 mcg (50,000 unit) Capsule 1,250 mcg PO .EVERY OTHER WEEK polyethylene glycol 3350 [Miralax] 17 gram/dose powder 4 g PO PRN PRN (Reason: Constipation) meclizine 25 mg tablet 25 mg PO DAILY PRN PRN (Reason: dizziness) bupropion HCl (smoking deter) 150 mg tablet extended release 12 hr 150 mg PO QHS potassium chloride 10 mEq tablet extended release 10 meq PO BID Eliquis DVT-PE Treat 30D Start 5 mg (74 tabs) tablets,dose pack 10 mg PO Q12H Patient Comments: started 10/19/24 10mg BID x7days then start 5mg BID prochlorperazine maleate 10 mg tablet 10 mg PO Q6H PRN PRN (Reason: nausea and vomiting) diphenhydramine HCl 12.5 mg/5 mL liquid 25 mg PO Q4H PRN PRN (Reason: mouth irritation) ondansetron HCl 8 mg tablet 8 mg PO Q8H PRN PRN (Reason: nausea/vomiting) cholecalciferol (vitamin D3) 1,250 mcg (50,000 unit) capsule 1,250 mcg PO DAILY furosemide 20 mg tablet 20 mg PO DAILY Creon 36,000-114,000- 180,000 unit capsule,delayed release(DR/EC) See Rx Instructions PO .COMPLEX Qty: 300 11RF Rx Instructions: take 1-2 with snacks and 2-3 with meals budesonide 3 mg capsule,delayed,extend.release 6 mg PO DAILY Qty: 60 5RF pantoprazole 40 mg tablet,delayed release (DR/EC) 40 mg PO DAILY Qty: 90 0RF alprazolam 1 mg tablet 1 mg PO TID 30 Days Qty: 90 2RF promethazine 25 mg tablet 25 mg PO Q6H PRN PRN (Reason: Nausea) Qty: 60 2RF dicyclomine 10 mg capsule 10 mg PO TID PRN (Reason: for abdominal pain) Qty: 90 3RF Primary Care Provider: Ciara Dhillon NP Referrals: Sabina Scott MD [Med Staff - Active Staff] - 1 Week Ciara Dhillon NP, [facility] [Primary Care Provider] - Activity Restrictions/Additional Instructions: CT with no PE. Cardiac workup negative. CT abdomen pelvis no infectious findings. Urine retention with [place] catheter. Likely from your cancer with radiation therapy. Follow-up with urology. Keep your follow-up with your doctors. Print Language: Armenian Disposition Disposition: Home, Self Care Discharge Date/Time: 10/25/24 07:05
[2024-10-24 21:36] LABS: Absolute Lymphocyte Count 0.48 X10^3/uL (0.83-4.51); Absolute Neutrophil Count 1.5 X10^3/uL (2.0-7.7); Basophil# 0.02 X10^3/uL; Basophil% 0.8 % (0-1); Eosinophil# 0.02 X10^3/uL; Eosinophils% 0.8 % (0-5); Hematocrit 31.2 % (37-47); Hemoglobin 10.1 g/dL (12.0-15.0); Lymphocyte # 0.48 X10^3/ul (0.83-4.51); Lymphocyte % 18.2 % (19-41); Mean Corp Hgb Conc 32.4 g/dL (32-36); Mean Corpuscular Hgb 27.4 pg (27.0-32.0); Mean Corpuscular Volume 84.6 fL (81-99); Mean Platelet Vol. 10.2 fl (6.2-12.0); Monocyte# 0.64 X10^3/uL; Monocyte% 24.2 % (0-10); NRBC Flagged by Analyzer 0 % (0-5); Neutrophil # 1.47 X10^3/uL (2.7-7.7); Neutrophil % 55.6 % (47-70); POSITIVE DIFFERENTIAL YES; Platelet Count 110 K/mm3 (150-450); RBC Distribution Width CV 18.9 % (11.6-14.6); RBC Distribution Width SD 54.4 fl (35.1-43.9); Red Blood Count 3.69 M/mm3 (4.2-5.4); White Blood Count 2.6 K/mm3 (4.4-11.0)
[2024-10-24] MEDS: Morphine 4 MG/ML Syringe IV (21:45)
[2024-10-24] MEDS: 0.9% Normal Saline (1000mL) 1,000 ML 999 ML IV (21:45)
[2024-10-24] MEDS: Ondansetron 4 MG/2 ML Vial IV (21:45)
[2024-10-24 21:48] LABS: Bacteria 0 SEEN /hpf (None Seen); Mucous, Urine 0 SEEN /hpf (<or=2+); Red Blood Cells-Urine 0 SEEN /hpf (0-5); Squamous Epithelial Cells - UA 0 SEEN /hpf (5-10); White Blood Cells 0 SEEN /hpf (0-5)
[2024-10-24 22:08] LABS: Color, Urine Yellow (Yellow); Glucose, Dipstick Normal (Normal); Ketone-Dipstick Negative (Negative); Leukocyte Esterase-Dipstick Negative /ul (Negative); Nitrite-Dipstick Negative (Negative); Occult Blood-Urine 10 /ul (Negative); Protein-Dipstick 15 mg/dl (Negative); Urine Bilirubin Dipstick Negative (Negative); Urine Clarity Clear (Clear); Urine Urobilinogen Normal (Normal)
[2024-10-24 22:14] LABS: Differential Indicated SCAN CRITERIA MET
[2024-10-24 22:25] LABS: Anion Gap 11 (5-15); BUN 8 mg/dL (4-19); BUN/Creat Ratio 11.6 RATIO (10-20); Calcium,Total 8.9 mg/dL (7.6-11.0); Carbon Dioxide 21.7 mmol/L (21.0-32.0); Chloride 105 mmol/L (98-108); Creatinine, Serum 0.67 mg/dL (0.70-1.20); EST Glomerular Filtration Rate 97 (>60); Estimated Creatinine Clearance 73.11 ml/min (50-250); Glucose 85 mg/dL (70-99); Potassium 3.1 mmol/L (3.3-5.1); Sodium Level 137 mmol/L (133-145)
[2024-10-24 22:30] LABS: Differential Comment SCANNED; Pathologist Review May foll
[2024-10-24] MEDS: Metoclopramide 10 MG/2 ML Vial 5 MG IV (22:47)
[2024-10-24 23:03] LABS: Pro- Brain NATRIURETIC PEPTIDE 1345 pg/mL (<=900); Troponin T High Sensitivity 14 ng/L (<=14)
[2024-10-25 06:56] LABS: Troponin T High Sens 2 HR 13 ng/L (<=14)
--- NOTE | 2024-10-25 07:03 | ED.RN ---
See downtime charting.
== END 2024-10-25 01:00 | disposition home or self-care (01) ==
PROVIDERS: Nurse Practitioner; Emergency Provider Emergency Medicine; PCP Nurse Practitioner Family; Visit Provider Emergency Medicine
DX: R33.9 Retention of urine, unspecified (principal); C79.82 Secondary malignant neoplasm of genital organs; K50.90 Crohn's disease, unspecified, without complications; C20 Malignant neoplasm of rectum; I11.0 Hypertensive heart disease with heart failure; I50.32 Chronic diastolic (congestive) heart failure; J44.9 Chronic obstructive pulmonary disease, unspecified; R39.15 Urgency of urination; R06.00 Dyspnea, unspecified; C44.529 Squamous cell carcinoma of skin of other part of trunk; E78.5 Hyperlipidemia, unspecified; R07.9 Chest pain, unspecified; Z79.01 Long term (current) use of anticoagulants; Z79.899 Other long term (current) drug therapy; Z87.891 Personal history of nicotine dependence; Z92.3 Personal history of irradiation
CPT/HCPCS: 51702; 71275; 74177; 80048; 81001; 83880; 84484; 85025; 87631; 93005; 96361; 96374; 96375; 99285; Q9967; A4216; J2405

== ENCOUNTER 2024-10-30 00:57 | Emergency (ER) | payer MEDICARE, MEDICAID, SELFPAY ==
[2024-10-30 00:58] VITALS: BP 163/74; PULSE 78; RESP 19; TEMP 36.2; O2SAT 97; BMI 35.5
[2024-10-30 01:04] VITALS: TEMP 36.2
--- NOTE | 2024-10-30 01:58 | CT_ITS ---
PROCEDURE: BRAIN/HEAD WITHOUT CONTRAST 10/30/2024 REASON FOR EXAM: FALL TECHNIQUE: Head CT without intravenous contrast. Coronal and Sagittal reconstruction series were provided. One or more dose reduction techniques were used (e.g., Automated exposure control, adjustment of the mA and/or kV according to patient size, use of iterative reconstruction technique. RADIATION DOSE SUMMARY: CTDlvol: 44.99 mGy DLP: 796.11 mGycm COMPARISON: None available FINDINGS: No intracranial hemorrhage, mass effect or calvarial fracture. The ventricles are within limits and midline. The mendez-white differentiation appears preserved. Partially empty appearing sella. The visualized paranasal sinuses, mastoids and orbits appear within limits. Bilateral parasellar carotid calcification. CT/Brain/Head without Contrast IMPRESSION: No intracranial hemorrhage, mass effect or calvarial fracture. Reading Location: [id number]
[2024-10-30] MEDS: oxyCODONE 5 MG Tablet PO (02:06)
--- NOTE | 2024-10-30 02:20 | RAD_ITS ---
PROCEDURE: HIP, UNI W/ PELVIS 2-3 VIEWS 10/30/2024 REASON FOR EXAM: PAIN TECHNIQUE: AP pelvis and two-view right hip and two-view left hip, 5 total images COMPARISON: None available FINDINGS: Pelvis and bilateral hips: Status post left hip replacement. No fracture or dislocation. Degenerative changes of the lower left sacroiliac joint noted. Right SI joint and pubic symphysis appear within limits. Lower lumbar spondylosis/discogenic change. Vascular calcifications noted. RAD/HIP, UNI W/ Pelvis 2-3 Views IMPRESSION: Status post left hip replacement. No fracture or dislocation. Degenerative changes of the lower left sacroiliac joint noted. Reading Location: [id number]
--- NOTE | 2024-10-30 03:13 | EX.ED.DYSGE1 ---
HPI History of Present Illness Chief Complaint: Fall Informant: patient and family Narrative Narrative: Patient is a 64-year-old female with history of hypertension hyperlipidemia psoriasis psoriatic arthritis previous TIA currently on Eliquis and COPD. Patient and family states she was also recently diagnosed with cancer. They state that since that diagnosis she has been having increased fatigue and weakness making it difficult for her to ambulate. Patient states that this morning she got up to use the bathroom and after doing so as she was bending over to pull up her pants she lost her balance and fell. She states she landed on her left side but as she fell she reached for her wheelchair and was able to grab it but unfortunately pulled it down striking her right hip. She denies striking her head or any loss of consciousness. She states she is currently scheduled to have a port placed later today and therefore has been off her Eliquis for the past few days. She states family was able to help her back up and she was able to ambulate but with pain to the hips there is concern for potential fracture or trauma to her underlying hardware and therefore she was brought in for evaluation [facility] Medical History 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 Mass of anus Perirectal abscess History of Crohn's disease Psoriatic arthritis Psoriasis Internal derangement of right knee Wears glasses Post-menopausal Depression Anxiety Ambulates with cane Injury of back Difficulty swallowing History of IBS History of hiatal hernia Former smoker Shortness of breath on exertion Chronic cough History of echocardiogram History of stress test Hypertension Cardiology follow-up encounter History of CHF (congestive heart failure) History of irregular heartbeat Acute pharyngitis, unspecified URI (upper respiratory infection) Contact with or suspected exposure to other viral communicable disease History of partial replacement of left hip joint using bipolar prosthesis Vitamin D deficiency HLD (hyperlipidemia) Insomnia Dry eye Regular astigmatism, bilateral PVCs (premature ventricular contractions) Coronary artery stenosis Chronic diastolic CHF (congestive heart failure) Iron malabsorption Osteoarthritis Lumbar spondylosis Osteoporosis Congenital cataract Intermittent palpitations Nausea TIA (transient ischemic attack) Acute maxillary sinusitis, unspecified Acute ethmoidal sinusitis, unspecified Acute frontal sinusitis, unspecified COPD exacerbation Foreign body in conjunctival sac, left eye, initial encounter Acute bacterial conjunctivitis Influenza A Acute bronchitis Back pain Limb weakness Asthma Anemia Arthritis Home Medications ?Medication ?Instructions ?Recorded ?Last Taken ?Type albuterol sulfate 90 mcg/actuation 2 puff inhalation Q4H PRN PRN 03/13/15 Unknown History aerosol inhaler Shortness Of Breath fluoxetine 20 mg capsule 60 mg PO QHS MENTAL HEALTH 12/13/15 09/01/24 History peg [id number] 1 1 drp OP 4X/DAY DRY EYES 11/13/17 03/19/24 History %-0.2 %-0.2 % eye drops (Dry Eye Relief) leflunomide 20 mg tablet (Arava) 20 mg PO QHS RA 03/22/18 09/01/24 History amlodipine 5 mg tablet 7.5 mg PO QHS BP 08/15/22 09/01/24 History mometasone 50 mcg/actuation nasal 2 spray intranasal .QAM ALLERGIES 08/15/22 09/01/24 History spray ergocalciferol (vitamin D2) 1,250 1,250 mcg PO .EVERY OTHER WEEK 11/05/22 08/26/24 History mcg (50,000 unit) capsule (Vitamin SUPPELEMNT D2) mecobalamin (vitamin B12) 1,000 1,000 mcg sublingual QHS SUPPLEMENT 12/06/22 09/01/24 History mcg disintegrating tablet,sublingual abatacept 50 mg/0.4 mL 50 mg subcut QMONTH RA 12/17/22 07/02/24 History subcutaneous syringe (Orencia) Held on 10/02/24. Instructions: due to chemo polyethylene glycol 3350 17 4 g PO PRN PRN Constipation 01/09/23 Unknown History gram/dose oral powder (Miralax) [id number] See Rx Instructions PO .COMPLEX 09/25/23 09/01/24 Rx 36,000-114,000-180,000 unit #300 caps capsule,delay rel (Creon) acetaminophen 500 mg tablet 1,000 mg PO Q6H PRN fever or pain 11/15/23 09/01/24 History atorvastatin 80 mg tablet 80 mg PO QHS 11/15/23 09/01/24 History meclizine 25 mg tablet 25 mg PO DAILY PRN PRN dizziness 03/17/24 Unknown History budesonide 3 mg 6 mg (2 x 3 mg) PO DAILY #60 caps 04/09/24 09/01/24 Rx capsule,delayed,extended release pantoprazole 40 mg tablet,delayed 40 mg PO DAILY #90 TABLETS 05/01/24 09/01/24 Rx release alprazolam 1 mg tablet 1 mg PO TID 30 days #90 tabs 08/31/24 09/01/24 Rx bupropion HCl (smoking deter) 150 150 mg PO QHS 09/02/24 09/01/24 History mg tablet,12 hr sustained-release(smoking deterrent) promethazine 25 mg tablet 25 mg PO Q6H PRN PRN Nausea #60 09/14/24 Unknown Rx tabs dicyclomine 10 mg capsule 10 mg PO TID PRN for abdominal 09/17/24 Unknown Rx pain #90 caps apixaban 5 mg (74 tabs) tablets in 10 mg PO Q12H 10/24/24 Unknown History a dose pack (Bantam Live DVT-PE Treat 30D Start) cholecalciferol (vitamin D3) 1,250 1,250 mcg PO DAILY 10/24/24 Unknown History mcg (50,000 unit) capsule diphenhydramine HCl 12.5 mg/5 mL 25 mg PO Q4H PRN PRN mouth 10/24/24 Unknown History oral liquid irritation Held on 10/24/24. Instructions: sores healed furosemide 20 mg tablet 20 mg PO DAILY 10/24/24 Unknown History ondansetron HCl 8 mg tablet 8 mg PO Q8H PRN PRN nausea/vomiting 10/24/24 Unknown History potassium chloride 10 mEq 10 meq PO BID 10/24/24 Unknown History tablet,extended release prochlorperazine maleate 10 mg 10 mg PO Q6H PRN PRN nausea and 10/24/24 Unknown History tablet vomiting oxycodone-acetaminophen 5 mg-325 1 tab PO Q6H PRN pain 3 days #12 10/30/24 Unknown Rx mg tablet (Percocet) tabs Allergy/AdvReac Type Severity Reaction Status Date / Time doxycycline calcium (From Allergy Anaphylaxis Verified 10/30/24 01:04 Vibramycin) doxycycline hyclate (From Allergy Anaphylaxis Verified 10/30/24 01:04 Vibramycin) doxycycline monohydrate Allergy Anaphylaxis Verified 10/30/24 01:04 (From Vibramycin) NSAIDS (Non-Steroidal Allergy Anaphylaxis Verified 10/30/24 01:04 Anti-Inflamma duloxetine (From Cymbalta) AdvReac HEADACHE Verified 10/30/24 01:04 AND UPSET STOMACH hydrocodone bitartrate (From AdvReac STOMACH Verified 10/30/24 01:04 Vicodin) UPSET hydromorphone HCl (From AdvReac Vomiting Verified 10/30/24 01:04 Dilaudid) morphine AdvReac Vomiting Verified 10/30/24 01:04 Family History Mother Asthma Hypertension Kidney disease Father Asthma Myocardial infarction Daughter Asthma Diabetes Hypertension Sister Asthma Hypertension Surgical History History of total right knee replacement (TKR) S/P total knee arthroplasty Hx of esophagogastroduodenoscopy History of cardiac catheterization S/P repair of paraesophageal hernia History of Vanessa fundoplication H/O adenoidectomy History of tonsillectomy H/O hernia repair History of total left knee replacement Hx of section H/O shoulder surgery Social History household members: family housing: house Smoking Status: Former smoker quit date: 07/29/13 alcohol intake: never substance use type: does not use ROS ROS ED Constitutional Constitutional ED: Denies chills or fever(s) Eyes Eyes: Denies blurry vision or change in vision ENT ENT ED: Denies sore throat Cardiovascular Cardiovascular: Reports other Details: Negative syncope ; Denies chest pain Respiratory/Chest Respiratory/Chest: Denies cough or dyspnea Gastrointestinal Gastrointestinal: Reports nausea; Denies abdominal pain, diarrhea or vomiting Genitourinary Genitourinary ED: Denies dysuria Musculoskeletal Musculoskeletal: Reports other Details: Positive bilateral hip pain ; Denies neck pain Integumentary Denies Abrasions Neurologic Neurologic: Denies headache(s) Psychiatric Psychiatric: Reports anxiety and depression Hematologic/Lymphatic Hematologic/Lymphatic: Reports easy bleeding and easy bruising EXAM Physical Exam Const Vital Signs: 10/30/24 00:58 10/30/24 01:04 10/30/24 03:30 Temperature 97.1 F L 97.1 F L 97.1 F L Temperature Source Axillary Pulse Rate 78 74 Respiratory Rate 19 H 18 Respiratory Effort Normal Non-Labored Respiratory Depth Normal Respiratory Pattern Normal Blood Pressure 163/74 H 136/78 H Blood Pressure Mean 103 97 Pulse Ox 97 97 Oxygen Delivery Method Room Air Room Air Positive well nourished, well developed and obese General Appearance ED: well developed Nutritional Appearance: obese HEENT HEENT Narrative: Normocephalic atraumatic; no signs of depressed or basilar skull fracture Eyes PERRL and EOMs intact bilaterally General Eye ED: Negative for scleral icterus Neck supple Neck Narrative: No bony deformity or step-off of the cervical spine no midline tenderness to palpation Patient can move her neck in all directions without pain Chest Wall palpation of chest normal Chest Narrative: No bony deformity or crepitus noted Resp normal respiratory effort Resp Narrative: Breath sounds are diminished throughout with diffuse expiratory wheeze and faint rhonchi in the bilateral bases consistent with history of COPD however no signs of respiratory distress Cardio regular rate and regular rhythm GI normal to inspection, nondistended, normoactive bowel sounds, non-tender, non-distended and no masses GI Narrative: No voluntary guarding or rigidity or pulsatile mass Auscultation: normoactive bowel sounds Palpation: soft Back/Spine Back/Spine Narrative: No bony deformity or step-off of the thoracic or lumbar spine no midline tenderness to palpation Extremity Extremity Narrative: Pelvis is stable there is no shortening or external rotation of either lower extremity There is pain on palpation along the right and left greater trochanter region. There is no obvious bony deformity or joint effusion. Compartments are soft and compressible going against compartment syndrome. Active range of motion is decreased secondary to pain but there is full passive range of motion. Neuro oriented x3, CN's II-XII intact bilaterally and no sensory deficits noted Sensorium / Orientation: alert Psych mental status grossly normal Skin Skin Narrative: Patient has mild soft tissue swelling and ecchymosis over the greater trochanter region of the right and left hip with swelling ecchymosis slightly greater on the right MDM MDM MDM Narrative Medical decision making narrative: Patient presented to the ER hypertensive but otherwise with stable vitals. She reported a mechanical fall and therefore I felt no need for cardiac or syncope workup. She has been off her Eliquis for 2 days but with her age and fall and previous use there is still concern for traumatic subarachnoid or subdural hemorrhage so a CT of the head was obtained. As patient does not have any neck discomfort or pain with palpation and can move in all directions concern for compression fracture or spondylolisthesis is low and there is no need for cervical spine CT. as patient does have pain in the bilateral hips there is concern for femoral neck fracture or periprosthetic fracture or pubic rami fracture. X-rays of the hips were obtained secondary to this. Head CT revealed no signs of acute trauma. X-rays of the bilateral hips/pelvis revealed no signs of periprosthetic fracture or joint dislocation or fracture. After receiving oxycodone she reported feeling better. Therefore at this time there is no need for cardiac or syncope workup as patient had a mechanical fall and his workup reveals no signs of acute trauma there is no need to keep her in the hospital any further and she is otherwise safe for discharge History & Record Review Discussion w/independent historian: Patient and Family Radiography Diagnostic Testing: Clinical Impression(s) from Imaging Studies Brain CT 10/30/24 01:58 IMPRESSION: No intracranial hemorrhage, mass effect or calvarial fracture. Reading Location: [facility] Hip/Pelvis X-Ray 10/30/24 02:20 IMPRESSION: Status post left hip replacement. No fracture or dislocation. Degenerative changes of the lower left sacroiliac joint noted. Reading Location: [facility] Bilateral hip x-ray with 1 view pelvis as interpreted by the emergency medicine physician reveals hardware to be intact and in place without signs of periprosthetic fracture. There is no signs of acute fracture or dislocation. Osteoarthritic changes are noted throughout Discharge Plan Triage Chief Complaint: Fall ED Provider: Gaudencio Ambriz Dx/Rx/DC Orders Clinical Impression: Contusion, hip and thigh, Accidental fall, COPD (chronic obstructive pulmonary disease), Hypertension, Anxiety and depression, Current use of senior care anticoagulation Instructions: ED Hip Contusion, ED Fall Prevention Prescriptions: New oxycodone-acetaminophen [Percocet] 5-325 mg tablet 1 tab PO Q6H PRN (Reason: pain) 3 Days Qty: 12 0RF No Action mometasone 50 mcg/actuation spray,non-aerosol 2 spray intranasal .QAM Rx Instructions: administer into each nostril amlodipine 5 mg tablet 7.5 mg PO QHS mecobalamin (vitamin B12) 1,000 mcg tablet,disintegrating 1,000 mcg sublingual QHS Rx Instructions: place tablet under tongue and allow to dissolve for at least30 secs before swallowing Orencia 50 mg/0.4 mL syringe 50 mg subcut QMONTH acetaminophen 500 mg tablet 1,000 mg PO Q6H PRN (Reason: fever or pain) atorvastatin 80 mg tablet 80 mg PO QHS albuterol sulfate 1 INHALER inhaler 2 puff INHALATION Q4H PRN PRN (Reason: Shortness Of Breath) Patient Comments: BREATING fluoxetine 20 MG capsule 60 mg PO QHS Patient Comments: ANXIETY Dry Eye Relief 15 ML drops 1 drp OP 4X/DAY leflunomide [Arava] 20 tablet 20 mg PO QHS Patient Comments: ergocalciferol (vitamin D2) [Vitamin D2] 1,250 mcg (50,000 unit) Capsule 1,250 mcg PO .EVERY OTHER WEEK polyethylene glycol 3350 [Miralax] 17 gram/dose powder 4 g PO PRN PRN (Reason: Constipation) meclizine 25 mg tablet 25 mg PO DAILY PRN PRN (Reason: dizziness) bupropion HCl (smoking deter) 150 mg tablet extended release 12 hr 150 mg PO QHS potassium chloride 10 mEq tablet extended release 10 meq PO BID Eliquis DVT-PE Treat 30D Start 5 mg (74 tabs) tablets,dose pack 10 mg PO Q12H Patient Comments: started 10/19/24 10mg BID x7days then start 5mg BID prochlorperazine maleate 10 mg tablet 10 mg PO Q6H PRN PRN (Reason: nausea and vomiting) diphenhydramine HCl 12.5 mg/5 mL liquid 25 mg PO Q4H PRN PRN (Reason: mouth irritation) ondansetron HCl 8 mg tablet 8 mg PO Q8H PRN PRN (Reason: nausea/vomiting) cholecalciferol (vitamin D3) 1,250 mcg (50,000 unit) capsule 1,250 mcg PO DAILY furosemide 20 mg tablet 20 mg PO DAILY Creon 36,000-114,000- 180,000 unit capsule,delayed release(DR/EC) See Rx Instructions PO .COMPLEX Qty: 300 11RF Rx Instructions: take 1-2 with snacks and 2-3 with meals budesonide 3 mg capsule,delayed,extend.release 6 mg PO DAILY Qty: 60 5RF pantoprazole 40 mg tablet,delayed release (DR/EC) 40 mg PO DAILY Qty: 90 0RF alprazolam 1 mg tablet 1 mg PO TID 30 Days Qty: 90 2RF promethazine 25 mg tablet 25 mg PO Q6H PRN PRN (Reason: Nausea) Qty: 60 2RF dicyclomine 10 mg capsule 10 mg PO TID PRN (Reason: for abdominal pain) Qty: 90 3RF Primary Care Provider: Ciara Dhillon NP Referrals: Ciara Dhillon NP, [facility] [facility] [Primary Care Provider] - Activity Restrictions/Additional Instructions: Your head CT showed no sign of skull fracture or brain bleed. Your hip x-rays show degenerative changes without fracture or damage to your previous hardware. You may ice the areas that are painful to help reduce pain and speed healing as well as take the prescribed Percocet. [id number]-[id number] medication such as lidocaine patches or Salonpas may help as well. Return to the ER should you have any further concerns Print Language: Chinese Disposition Disposition: Home, Self Care Discharge Date/Time: 10/30/24 03:31
[2024-10-30 03:30] VITALS: BP 136/78; PULSE 74; RESP 18; TEMP 36.2; O2SAT 97
== END 2024-10-30 03:31 | disposition home or self-care (01) ==
PROVIDERS: Emergency Provider Emergency Medicine; PCP Nurse Practitioner Family; Visit Provider Emergency Medicine
DX: S70.01XA Contusion of right hip, initial encounter (principal); L40.50 Arthropathic psoriasis, unspecified; I11.0 Hypertensive heart disease with heart failure; I50.32 Chronic diastolic (congestive) heart failure; J44.9 Chronic obstructive pulmonary disease, unspecified; S70.02XA Contusion of left hip, initial encounter; S70.12XA Contusion of left thigh, initial encounter; S70.11XA Contusion of right thigh, initial encounter; W01.198A Fall on same level from slipping, tripping and stumbling with subsequent striking against other object, initial encounter; E78.5 Hyperlipidemia, unspecified; F32.A Depression, unspecified; F41.9 Anxiety disorder, unspecified; Z79.01 Long term (current) use of anticoagulants; Z79.899 Other long term (current) drug therapy; Z87.891 Personal history of nicotine dependence; Z86.73 Personal history of transient ischemic attack (TIA), and cerebral infarction without residual deficits
CPT/HCPCS: 70450; 73502; 99284

== ENCOUNTER 2024-12-27 14:42 | Emergency (ER) | payer MEDICARE, MEDICAID, SELFPAY ==
[2024-12-27 14:43] VITALS: BP 143/72; PULSE 85; RESP 16; TEMP 36.6; O2SAT 98; BMI 32.3
--- NOTE | 2024-12-27 15:27 | CT_ITS ---
PROCEDURE: PELVIS WITHOUT IV CONTRAST 12/27/2024 REASON FOR EXAM: PAIN TECHNIQUE: Pelvis CT without contrast. One or more dose reduction techniques were used (e.g., Automated exposure control, adjustment of the mA and/or kV according to patient size, use of iterative reconstruction technique). RADIATION DOSE SUMMARY: CTDlvol: 14.83 mGy DLP: 533.27 mGycm COMPARISON: None. FINDINGS: Left hip total arthroplasty. No evidence of acute fracture or dislocation. Osseous demineralization. The peripheral soft tissues are unremarkable. No acute intrapelvic abnormalities. CT/Pelvis without IV Contrast IMPRESSION: No acute abnormalities. Reading Location: [place] [id number]
--- NOTE | 2024-12-27 15:30 | EX.ED.DYSGE1 ---
HPI <CY Arcos - Last Filed: 12/27/24 17:45> History of Present Illness Chief Complaint: Other, Pain/Inj Narrative Narrative: 64-year-old female with past medical history of rectal cancer s/p chemo and radiation, osteoporosis left hip replacement, presents with left buttock pain over the last few months. She is not sure exactly when it started. Pain is constant and is worse with sitting or moving. Does not radiate down the leg. She has no weakness or numbness or tingling. No saddle anesthesia. No bladder or bowel incontinence. She completed 1 month of radiation for rectal cancer on November 07, 2024. She is post to have an MRI of the area in the future. She denies recent fall or injury. She has no fever or chills. 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 Mass of anus Perirectal abscess History of Crohn's disease Psoriatic arthritis Psoriasis Internal derangement of right knee Wears glasses Post-menopausal Depression Anxiety Ambulates with cane Injury of back Difficulty swallowing History of IBS History of hiatal hernia Former smoker Shortness of breath on exertion Chronic cough History of echocardiogram History of stress test Hypertension Cardiology follow-up encounter History of CHF (congestive heart failure) History of irregular heartbeat Acute pharyngitis, unspecified URI (upper respiratory infection) Contact with or suspected exposure to other viral communicable disease History of partial replacement of left hip joint using bipolar prosthesis Vitamin D deficiency HLD (hyperlipidemia) Insomnia Dry eye Regular astigmatism, bilateral PVCs (premature ventricular contractions) Coronary artery stenosis Chronic diastolic CHF (congestive heart failure) Iron malabsorption Osteoarthritis Lumbar spondylosis Osteoporosis Congenital cataract Intermittent palpitations Nausea TIA (transient ischemic attack) Acute maxillary sinusitis, unspecified Acute ethmoidal sinusitis, unspecified Acute frontal sinusitis, unspecified COPD exacerbation Foreign body in conjunctival sac, left eye, initial encounter Acute bacterial conjunctivitis Influenza A Acute bronchitis Back pain Limb weakness Asthma Anemia Arthritis Home Medications ?Medication ?Instructions ?Recorded ?Last Taken ?Type albuterol sulfate 90 mcg/actuation 2 puff inhalation Q4H PRN PRN 03/13/15 Unknown History aerosol inhaler Shortness Of Breath fluoxetine 20 mg capsule 60 mg PO QHS MENTAL HEALTH 12/13/15 09/01/24 History peg [id number]-[id number] 1 1 drp OP 4X/DAY DRY EYES 11/13/17 03/19/24 History %-0.2 %-0.2 % eye drops (Dry Eye Relief) leflunomide 20 mg tablet (Arava) 20 mg PO QHS RA 03/22/18 09/01/24 History amlodipine 5 mg tablet 7.5 mg PO QHS BP 08/15/22 09/01/24 History mometasone 50 mcg/actuation nasal 2 spray intranasal .QAM ALLERGIES 08/15/22 09/01/24 History spray ergocalciferol (vitamin D2) 1,250 1,250 mcg PO .EVERY OTHER WEEK 11/05/22 08/26/24 History mcg (50,000 unit) capsule (Vitamin SUPPELEMNT D2) mecobalamin (vitamin B12) 1,000 1,000 mcg sublingual QHS SUPPLEMENT 12/06/22 09/01/24 History mcg disintegrating tablet,sublingual abatacept 50 mg/0.4 mL 50 mg subcut QMONTH RA 12/17/22 07/02/24 History subcutaneous syringe (Orencia) Held on 10/02/24. Instructions: due to chemo polyethylene glycol 3350 17 4 g PO PRN PRN Constipation 01/09/23 Unknown History gram/dose oral powder (Miralax) [id number] See Rx Instructions PO .COMPLEX 09/25/23 09/01/24 Rx 36,000-114,000-180,000 unit #300 caps capsule,delay rel (Creon) acetaminophen 500 mg tablet 1,000 mg PO Q6H PRN fever or pain 11/15/23 09/01/24 History atorvastatin 80 mg tablet 80 mg PO QHS 11/15/23 09/01/24 History meclizine 25 mg tablet 25 mg PO DAILY PRN PRN dizziness 03/17/24 Unknown History pantoprazole 40 mg tablet,delayed 40 mg PO DAILY #90 TABLETS 05/01/24 09/01/24 Rx release bupropion HCl (smoking deter) 150 150 mg PO QHS 09/02/24 09/01/24 History mg tablet,12 hr sustained-release(smoking deterrent) dicyclomine 10 mg capsule 10 mg PO TID PRN for abdominal 09/17/24 Unknown Rx pain #90 caps apixaban 5 mg (74 tabs) tablets in 10 mg PO Q12H 10/24/24 Unknown History a dose pack (Eliquis DVT-PE Treat 30D Start) cholecalciferol (vitamin D3) 1,250 1,250 mcg PO DAILY 10/24/24 Unknown History mcg (50,000 unit) capsule diphenhydramine HCl 12.5 mg/5 mL 25 mg PO Q4H PRN PRN mouth 10/24/24 Unknown History oral liquid irritation Held on 10/24/24. Instructions: sores healed furosemide 20 mg tablet 20 mg PO DAILY 10/24/24 Unknown History ondansetron HCl 8 mg tablet 8 mg PO Q8H PRN PRN nausea/vomiting 10/24/24 Unknown History potassium chloride 10 mEq 10 meq PO BID 10/24/24 Unknown History tablet,extended release prochlorperazine maleate 10 mg 10 mg PO Q6H PRN PRN nausea and 10/24/24 Unknown History tablet vomiting oxycodone-acetaminophen 5 mg-325 1 tab PO Q6H PRN pain 3 days #12 10/30/24 Unknown Rx mg tablet (Percocet) tabs budesonide 3 mg 6 mg (2 x 3 mg) PO DAILY #60 caps 11/09/24 Unknown Rx capsule,delayed,extended release alprazolam 1 mg tablet 1 mg PO TID 30 days #90 tabs 12/02/24 Unknown Rx promethazine 25 mg tablet 25 mg PO Q6H PRN PRN Nausea #60 12/15/24 Unknown Rx tabs hydrocodone-acetaminophen 5-325mg 1 tab PO Q6H PRN PRN Pain 3 days 12/27/24 Unknown Rx 5mg-325mg #12 TABLETS Allergy/AdvReac Type Severity Reaction Status Date / Time doxycycline calcium (From Allergy Anaphylaxis Verified 12/27/24 14:43 Vibramycin) doxycycline hyclate (From Allergy Anaphylaxis Verified 12/27/24 14:43 Vibramycin) doxycycline monohydrate Allergy Anaphylaxis Verified 12/27/24 14:43 (From Vibramycin) NSAIDS (Non-Steroidal Allergy Anaphylaxis Verified 12/27/24 14:43 Anti-Inflamma duloxetine (From Cymbalta) AdvReac HEADACHE Verified 12/27/24 14:43 AND UPSET STOMACH hydrocodone bitartrate (From AdvReac STOMACH Verified 12/27/24 14:43 Vicodin) UPSET hydromorphone HCl (From AdvReac Vomiting Verified 12/27/24 14:43 Dilaudid) morphine AdvReac Vomiting Verified 12/27/24 14:43 Family History Mother Asthma Hypertension Kidney disease Father Asthma Myocardial infarction Daughter Asthma Diabetes Hypertension Sister Asthma Hypertension Surgical History History of total right knee replacement (TKR) S/P total knee arthroplasty Hx of esophagogastroduodenoscopy History of cardiac catheterization S/P repair of paraesophageal hernia History of Vanessa fundoplication H/O adenoidectomy History of tonsillectomy H/O hernia repair History of total left knee replacement Hx of section H/O shoulder surgery Social History household members: family housing: house Smoking Status: Former smoker quit date: 07/29/13 alcohol intake: never substance use type: does not use ROS <CY Arcos - Last Filed: 12/27/24 17:45> ROS ED ROS Narrative Constitutional: Negative for fever, chills, malaise. GI: Negative for abdominal pain, nausea, vomiting. Neuro: Negative for motor/sensory dysfunction. Skin: Negative for rash, abscess, or wound. EXAM <CY Arcos - Last Filed: 12/27/24 17:45> Physical Exam Narrative Exam Narrative: CONST: Patient sitting in no acute distress. EYES: Normal inspection. NECK: Normal inspection. RESP: No respiratory distress, CTAB. CVS: Regular rate and rhythm, no murmur, no gallop. Back: Normal inspection, no midline tenderness. SKIN: Color normal, no rash, warm, dry, intact. EXTREMITIES: Normal appearance, 5/5 strength in bilateral hip flexion and dorsiflexion and plantarflexion. Normal sensation. 2+ DP pulses. NEURO: Alert and answering questions appropriately. PSYCH: Normal affect. Const Vital Signs: 12/27/24 14:43 12/27/24 15:23 12/27/24 16:27 Temperature 97.8 F 98.2 F Temperature Source Oral Pulse Rate 85 70 Respiratory Rate 16 18 Respiratory Effort Normal Respiratory Pattern Normal Blood Pressure 143/72 H 112/58 L Blood Pressure Mean 95 76 Pulse Ox 98 96 Oxygen Delivery Method Room Air <Woo Thapa MD - Last Filed: 12/27/24 18:31> Physical Exam Const Vital Signs: 12/27/24 14:43 12/27/24 15:23 12/27/24 16:27 Temperature 97.8 F 98.2 F Temperature Source Oral Pulse Rate 85 70 Respiratory Rate 16 18 Respiratory Effort Normal Respiratory Pattern Normal Blood Pressure 143/72 H 112/58 L Blood Pressure Mean 95 76 Pulse Ox 98 96 Oxygen Delivery Method Room Air [facility] <CY Arcos - Last Filed: 12/27/24 17:45> [facility] Narrative Medical decision making narrative: Differential includes but not limited to musculoskeletal pain, fracture, bony metastasis, sciatica 64-year-old female presents with several months of left sacral and buttock pain. No recent trauma. She has a history of rectal cancer and is status post chemo and radiation. She is not having any new bowel or bladder symptoms. She has no red flag signs concerning for cauda equina. She is tender over the left sacrum and left buttock and ischial tuberosity. There is no formative crepitus. She has full range of motion of both hips and lower extremities and is neurovascularly intact no overlying skin changes or signs of infection. CT of the pelvis shows no acute abnormalities. She had some pain relief with Milaca which I prescribed a short course for home and recommended she follow-up with her primary care doctor. She was discharged in stable condition. Radiography Diagnostic Testing: Clinical Impression(s) from Imaging Studies Pelvis CT 12/27/24 15:27 IMPRESSION: No acute abnormalities. Reading Location: [id number] <Woo Thapa MD - Last Filed: 12/27/24 18:31> [facility] History & Record Review Discussion w/independent historian: Patient Radiography Diagnostic Testing: Clinical Impression(s) from Imaging Studies Pelvis CT 12/27/24 15:27 IMPRESSION: No acute abnormalities. Reading Location: [id number] Treatment and Re-Evaluation :: Dr. Thapa: I have personally performed a face to face assessment of the patient and have reviewed the CRUZITO Note. I performed a substantive portion of the visit including all aspects of the following. My gusman findings include: History is fall 1 month ago with left buttocks pain. No pain with defecation. History of anal carcinoma with radiation therapy. Exam is GCS 15. ABCs intact. Mild tenderness to palpation left posterior buttocks, left sacrum. No crepitance. Medical Decision Making: Check CT pelvis. No evidence of fracture. Continue analgesia, follow-up with hematology oncology. Scheduled for outpatient MRI of pelvis in the future. Discharge. Other additions or changes: [None] Discharge Plan Triage Chief Complaint: Other, Pain/Inj ED Midlevel Provider: Ekaterina Wadsworth ED Provider: Woo Thapa Dx/Rx/DC Orders Clinical Impression: Left buttock pain, Osteoporosis, History of rectal cancer Instructions: ED Chronic Pain, ED Pain, Acute, Uncertain Cause Prescriptions: New hydrocodone-acetaminophen 5-325 mg tablet 1 tab PO Q6H PRN PRN (Reason: Pain) 3 Days Qty: 12 0RF No Action mometasone 50 mcg/actuation spray,non-aerosol 2 spray intranasal .QAM Rx Instructions: administer into each nostril amlodipine 5 mg tablet 7.5 mg PO QHS mecobalamin (vitamin B12) 1,000 mcg tablet,disintegrating 1,000 mcg sublingual QHS Rx Instructions: place tablet under tongue and allow to dissolve for at least30 secs before swallowing Orencia 50 mg/0.4 mL syringe 50 mg subcut QMONTH acetaminophen 500 mg tablet 1,000 mg PO Q6H PRN (Reason: fever or pain) atorvastatin 80 mg tablet 80 mg PO QHS albuterol sulfate 1 INHALER inhaler 2 puff INHALATION Q4H PRN PRN (Reason: Shortness Of Breath) Patient Comments: BREATING fluoxetine 20 MG capsule 60 mg PO QHS Patient Comments: ANXIETY Dry Eye Relief 15 ML drops 1 drp OP 4X/DAY leflunomide [Arava] 20 tablet 20 mg PO QHS Patient Comments: ergocalciferol (vitamin D2) [Vitamin D2] 1,250 mcg (50,000 unit) Capsule 1,250 mcg PO .EVERY OTHER WEEK polyethylene glycol 3350 [Miralax] 17 gram/dose powder 4 g PO PRN PRN (Reason: Constipation) meclizine 25 mg tablet 25 mg PO DAILY PRN PRN (Reason: dizziness) bupropion HCl (smoking deter) 150 mg tablet extended release 12 hr 150 mg PO QHS oxycodone-acetaminophen [Percocet] 5-325 mg tablet 1 tab PO Q6H PRN (Reason: pain) 3 Days Qty: 12 0RF potassium chloride 10 mEq tablet extended release 10 meq PO BID Eliquis DVT-PE Treat 30D Start 5 mg (74 tabs) tablets,dose pack 10 mg PO Q12H Patient Comments: started 10/19/24 10mg BID x7days then start 5mg BID prochlorperazine maleate 10 mg tablet 10 mg PO Q6H PRN PRN (Reason: nausea and vomiting) diphenhydramine HCl 12.5 mg/5 mL liquid 25 mg PO Q4H PRN PRN (Reason: mouth irritation) ondansetron HCl 8 mg tablet 8 mg PO Q8H PRN PRN (Reason: nausea/vomiting) cholecalciferol (vitamin D3) 1,250 mcg (50,000 unit) capsule 1,250 mcg PO DAILY furosemide 20 mg tablet 20 mg PO DAILY Creon 36,000-114,000- 180,000 unit capsule,delayed release(DR/EC) See Rx Instructions PO .COMPLEX Qty: 300 11RF Rx Instructions: take 1-2 with snacks and 2-3 with meals pantoprazole 40 mg tablet,delayed release (DR/EC) 40 mg PO DAILY Qty: 90 0RF dicyclomine 10 mg capsule 10 mg PO TID PRN (Reason: for abdominal pain) Qty: 90 3RF budesonide 3 mg capsule,delayed,extend.release 6 mg PO DAILY Qty: 60 5RF alprazolam 1 mg tablet 1 mg PO TID 30 Days Qty: 90 2RF promethazine 25 mg tablet 25 mg PO Q6H PRN PRN (Reason: Nausea) Qty: 60 2RF Primary Care Provider: Ciara Dhillon NP Referrals: Ciara Dhillon NP, MACHINE ENGRAVER-C [Primary Care Provider] - Activity Restrictions/Additional Instructions: I am not sure what is causing her chronic left sacral and buttock pain. Your CT of the pelvis is normal other than osteoporosis. I prescribed Milaca for pain. Take a stool softener or MiraLAX while on this. Follow-up with your primary care doctor. Print Language: Croatian Disposition Disposition: Home, Self Care Discharge Date/Time: 12/27/24 16:28
[2024-12-27] MEDS: HYDROcodone Bitartrate/Apap 5/325 Tablet PO (15:50)
[2024-12-27] MEDS: Ondansetron ODT 4 MG Tablet PO (15:50)
[2024-12-27 16:27] VITALS: BP 112/58; PULSE 70; RESP 18; TEMP 36.8; O2SAT 96
== END 2024-12-27 16:28 | disposition home or self-care (01) ==
PROVIDERS: Emergency Provider Emergency Medicine; PCP Nurse Practitioner Family; Visit Provider Emergency Medicine
DX: M54.50 Low back pain, unspecified (principal); I11.0 Hypertensive heart disease with heart failure; I50.32 Chronic diastolic (congestive) heart failure; J44.9 Chronic obstructive pulmonary disease, unspecified; M53.3 Sacrococcygeal disorders, not elsewhere classified; E78.5 Hyperlipidemia, unspecified; M81.0 Age-related osteoporosis without current pathological fracture; F32.A Depression, unspecified; F41.9 Anxiety disorder, unspecified; Z79.01 Long term (current) use of anticoagulants; Z79.69 Long term (current) use of other immunomodulators and immunosuppressants; Z79.899 Other long term (current) drug therapy; Z87.891 Personal history of nicotine dependence; Z92.21 Personal history of antineoplastic chemotherapy; Z92.3 Personal history of irradiation; Z85.048 Personal history of other malignant neoplasm of rectum, rectosigmoid junction, and anus
CPT/HCPCS: 72192; 99282

== ENCOUNTER 2025-02-27 17:19 | Emergency (ER) | payer MEDICARE, MEDICAID, SELFPAY ==
[2025-02-27 17:19] VITALS: BP 133/50; PULSE 76; RESP 18; TEMP 36.3; O2SAT 97; BMI 33.1
--- NOTE | 2025-02-27 18:02 | EX.ED.DYSGE1 ---
HPI History of Present Illness Chief Complaint: Lower Extremity Injury Detail of Chief Complaint: Pain left buttocks area Informant: patient Onset/Context/Timing Onset: Weeks Context: Gradual Onset Timing: Continuous Quality: Pain Location: Left SI region Current Severity: Mild Maximum Severity: Severe Worsened by: Pressure, certain movements Relieved by: Nothing Associated Symptoms Associated Symptoms: None Narrative Narrative: Patient is a 64-year-old woman. She had images of her left hip pelvis October of this year. 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 The films were reviewed. There is inflammation. She had a CT of the pelvis which revealed no acute abnormality. I believe there is some inflammation of the SI joint on the left as well. Patient denies dysuria, frequency, urgency or hematuria. Patient denies change in caliber, color or consistency of her stool. Patient denies vaginal symptoms. There is no history of trauma. She has not noted a rash or bruising. She is on no anticoagulant. She is presently taking 2 tramadol tablets every 8 hours without any improvement. She denies radicular pain. Denies foot drop. Buckling of her knees. She denies any recent orthopedic procedure or dental procedure. Prior similar symptoms: Yes Recent Illness/Hospitalization: No PFSH PFSH Medical History Cancer Walker as ambulation aid DVT (deep venous thrombosis) Gastric reflux 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 Mass of anus Perirectal abscess History of Crohn's disease Psoriatic arthritis Psoriasis Internal derangement of right knee Wears glasses Post-menopausal Depression Anxiety Ambulates with cane Injury of back Difficulty swallowing History of IBS History of hiatal hernia Former smoker Shortness of breath on exertion Chronic cough History of echocardiogram History of stress test Hypertension Cardiology follow-up encounter History of CHF (congestive heart failure) History of irregular heartbeat Acute pharyngitis, unspecified URI (upper respiratory infection) Contact with or suspected exposure to other viral communicable disease History of partial replacement of left hip joint using bipolar prosthesis Vitamin D deficiency HLD (hyperlipidemia) Insomnia Dry eye Regular astigmatism, bilateral PVCs (premature ventricular contractions) Coronary artery stenosis Chronic diastolic CHF (congestive heart failure) Iron malabsorption Osteoarthritis Lumbar spondylosis Osteoporosis Congenital cataract Intermittent palpitations Nausea TIA (transient ischemic attack) Acute maxillary sinusitis, unspecified Acute ethmoidal sinusitis, unspecified Acute frontal sinusitis, unspecified COPD exacerbation Foreign body in conjunctival sac, left eye, initial encounter Acute bacterial conjunctivitis Influenza A Acute bronchitis Back pain Limb weakness Asthma Anemia Arthritis Home Medications ?Medication ?Instructions ?Recorded ?Last Taken ?Type albuterol sulfate 90 mcg/actuation 2 puff inhalation Q4H PRN PRN 03/13/15 Unknown History aerosol inhaler Shortness Of Breath fluoxetine 20 mg capsule 60 mg PO QHS MENTAL HEALTH 12/13/15 09/01/24 History peg [id number] 1 1 drp OP 4X/DAY DRY EYES 11/13/17 03/19/24 History %-0.2 %-0.2 % eye drops (Dry Eye Relief) leflunomide 20 mg tablet (Arava) 20 mg PO QHS RA 03/22/18 09/01/24 History amlodipine 5 mg tablet 7.5 mg PO QHS BP 08/15/22 09/01/24 History mometasone 50 mcg/actuation nasal 2 spray intranasal .QAM ALLERGIES 08/15/22 09/01/24 History spray mecobalamin (vitamin B12) 1,000 1,000 mcg sublingual QHS SUPPLEMENT 12/06/22 09/01/24 History mcg disintegrating tablet,sublingual abatacept 50 mg/0.4 mL 50 mg subcut QMONTH RA 12/17/22 02/18/25 History subcutaneous syringe (Orencia) acetaminophen 500 mg tablet 1,000 mg PO Q6H PRN fever or pain 11/15/23 09/01/24 History atorvastatin 80 mg tablet 80 mg PO QHS 11/15/23 09/01/24 History meclizine 25 mg tablet 25 mg PO DAILY PRN PRN dizziness 03/17/24 Unknown History bupropion HCl (smoking deter) 150 150 mg PO QHS 09/02/24 09/01/24 History mg tablet,12 hr sustained-release(smoking deterrent) apixaban 5 mg (74 tabs) tablets in 10 mg PO Q12H 10/24/24 Unknown History a dose pack (Eliquis DVT-PE Treat 30D Start) cholecalciferol (vitamin D3) 1,250 1,250 mcg PO Q14D 10/24/24 Unknown History mcg (50,000 unit) capsule furosemide 20 mg tablet 20 mg PO DAILY 10/24/24 Unknown History alprazolam 1 mg tablet 1 mg PO TID 30 days #90 tabs 12/02/24 Unknown Rx dicyclomine 10 mg capsule 10 mg PO TID PRN for abdominal 01/25/25 Unknown Rx pain #90 caps pantoprazole 40 mg tablet,delayed 40 mg PO DAILY #90 TABLETS 01/25/25 Unknown Rx release diphenoxylate-atropine 2.5 1 tab PO TID PRN diarrhea #90 tabs 02/02/25 Unknown Rx mg-0.025 mg tablet (Lomotil) promethazine 25 mg tablet 25 mg PO Q6H PRN PRN Nausea #30 02/02/25 Unknown Rx tabs tramadol 50 mg tablet 50 mg PO Q6H PRN PRN pain 02/24/25 Unknown History oxycodone-acetaminophen 5 mg-325 1 tab PO Q6H PRN PRN pain 5 days 02/27/25 Unknown Rx mg tablet #20 TABLETS prednisone 20 mg tablet 60 mg (3 x 20 mg) PO DAILY #15 02/27/25 Unknown Rx TABLETS Allergy/AdvReac Type Severity Reaction Status Date / Time doxycycline calcium (From Allergy Anaphylaxis Verified 02/27/25 17:20 Vibramycin) doxycycline hyclate (From Allergy Anaphylaxis Verified 02/27/25 17:20 Vibramycin) doxycycline monohydrate Allergy Anaphylaxis Verified 02/27/25 17:20 (From Vibramycin) NSAIDS (Non-Steroidal Allergy Anaphylaxis Verified 02/27/25 17:20 Anti-Inflamma duloxetine (From Cymbalta) AdvReac HEADACHE Verified 02/27/25 17:20 AND UPSET STOMACH hydrocodone bitartrate (From AdvReac STOMACH Verified 02/27/25 17:20 Vicodin) UPSET hydromorphone HCl (From AdvReac Vomiting Verified 02/27/25 17:20 Dilaudid) morphine AdvReac Vomiting Verified 02/27/25 17:20 Family History Mother Asthma Hypertension Kidney disease Father Asthma Myocardial infarction Daughter Asthma Diabetes Hypertension Sister Asthma Hypertension Surgical History History of left hip replacement History of total right knee replacement (TKR) S/P total knee arthroplasty Hx of esophagogastroduodenoscopy History of cardiac catheterization S/P repair of paraesophageal hernia History of Vanessa fundoplication H/O adenoidectomy History of tonsillectomy H/O hernia repair History of total left knee replacement Hx of section H/O shoulder surgery Social History household members: family housing: house Smoking Status: Former smoker quit date: 07/29/13 alcohol intake: never substance use type: does not use ROS ROS ED Constitutional Constitutional ED: Denies chills, fever(s), subjective, sweats or weight loss Gastrointestinal Gastrointestinal: Denies abdominal pain, constipation, diarrhea, melena, nausea or vomiting Genitourinary Genitourinary ED: Denies dysuria, hematuria or urinary frequency Musculoskeletal Musculoskeletal: Reports other Details: Left buttocks area over the SI joint region. ; Denies arthralgias, back pain, myalgias or neck pain Integumentary Denies rash Neurologic Neurologic: Denies headache(s) or paresthesias Psychiatric Psychiatric: Denies anxiety or depression Hematologic/Lymphatic Hematologic/Lymphatic: Reports systems reviewed and no addt'l complaints, except as documented EXAM Physical Exam Const Vital Signs: 02/27/25 17:19 Temperature 97.4 F L Temperature Source Temporal Pulse Rate 76 Respiratory Rate 18 Blood Pressure 133/50 H Blood Pressure Mean 77 Pulse Ox 97 Oxygen Delivery Method Room Air Positive well nourished and well developed Constitutional Narrative: BMI is 33.1. General Appearance ED: well developed; Negative for cyanotic, diaphoretic, NAD or pallor HEENT Reports moist mucous membranes HEENT Narrative: Head is atraumatic normocephalic. Ears normal. Eyes PERRL and EOMs intact bilaterally General Eye ED: Negative for pale conjunctiva or scleral icterus Resp normal respiratory effort Cardio regular rate and regular rhythm GI normal to inspection, nondistended, normoactive bowel sounds, non-tender and non-distended; Negative for hepatosplenomegaly Back/Spine no CVA tenderness Thoracic Spine / Upper Back: Negative for thoracic spinal tenderness Lumbar Spine / Lower Back: Negative for lumbar spinal tenderness Extremity normal to inspection Extremity Narrative: Frank Danelle 4 test causes pain over the SI joints. There is no pain ovation over the left greater trochanteric region, ischial tuberosity. There is pain ovation in the proximity of the SI joint on the left. There is no midline tenderness over the lumbar vertebrae or sacrum coccyx region midline. Neuro oriented x3 and CN's II-XII intact bilaterally Sensorium / Orientation: alert Motor Exam: strength 5/5 throughout Psych Mood & Affect: anxious Skin no rashes or lesions noted, no wounds and skin turgor normal General Skin Exam: Negative for jaundice or pallor MDM MDM MDM Narrative Medical decision making narrative: Since patient had images and advanced imaging of the pelvic area and reveals degenerative changes of the SI joint will medicate with opiate analgesic. NSAIDs are contraindicated since she has anaphylactic reaction. She also was treated with steroids. Will reassess in 30 to 60 minutes. There is no concern at this time for an infection. History & Record Review Additional record(s) reviewed:: Prior outpatient record (Images obtained October and December of this year.) and Prior ED visit (The CT was performed when she was in the ED on December 27, 2024. She was discharged to home. It was felt that her pain was due to chronic left sacral buttocks pain. She was prescribed [employer] at that time.) Treatment and Re-Evaluation :: Patient was reassessed at 1931. She feels better. She is discharged to home with prescription for Percocet and prednisone. She was instructed to discontinue the tramadol. Discharge Plan Triage Chief Complaint: Lower Extremity Injury ED Provider: Pawel Cason Dx/Rx/DC Orders Clinical Impression: Chronic left SI joint pain, Elevated blood-pressure reading without diagnosis of hypertension Instructions: Osteoarthritis: Common Sites, ED Chronic Pain Prescriptions: New oxycodone-acetaminophen 5-325 mg tablet 1 tab PO Q6H PRN PRN (Reason: pain) 5 Days Qty: 20 0RF prednisone 20 mg tablet 60 mg PO DAILY Qty: 15 0RF No Action mometasone 50 mcg/actuation spray,non-aerosol 2 spray intranasal .QAM Rx Instructions: administer into each nostril amlodipine 5 mg tablet 7.5 mg PO QHS mecobalamin (vitamin B12) 1,000 mcg tablet,disintegrating 1,000 mcg sublingual QHS Rx Instructions: place tablet under tongue and allow to dissolve for at least30 secs before swallowing Orencia 50 mg/0.4 mL syringe 50 mg subcut QMONTH acetaminophen 500 mg tablet 1,000 mg PO Q6H PRN (Reason: fever or pain) atorvastatin 80 mg tablet 80 mg PO QHS diphenoxylate-atropine [Lomotil] 2.5-0.025 mg tablet 1 tab PO TID PRN (Reason: diarrhea) Qty: 90 0RF promethazine 25 mg tablet 25 mg PO Q6H PRN PRN (Reason: Nausea) Qty: 30 1RF albuterol sulfate 1 INHALER inhaler 2 puff INHALATION Q4H PRN PRN (Reason: Shortness Of Breath) Patient Comments: BREATING fluoxetine 20 MG capsule 60 mg PO QHS Patient Comments: ANXIETY Dry Eye Relief 15 ML drops 1 drp OP 4X/DAY leflunomide [Arava] 20 tablet 20 mg PO QHS Patient Comments: meclizine 25 mg tablet 25 mg PO DAILY PRN PRN (Reason: dizziness) bupropion HCl (smoking deter) 150 mg tablet extended release 12 hr 150 mg PO QHS tramadol 50 mg tablet 50 mg PO Q6H PRN PRN (Reason: pain) Eliquis DVT-PE Treat 30D Start 5 mg (74 tabs) tablets,dose pack 10 mg PO Q12H Patient Comments: LAST DOSE WILL BE 02/27 cholecalciferol (vitamin D3) 1,250 mcg (50,000 unit) capsule 1,250 mcg PO Q14D furosemide 20 mg tablet 20 mg PO DAILY alprazolam 1 mg tablet 1 mg PO TID 30 Days Qty: 90 2RF dicyclomine 10 mg capsule 10 mg PO TID PRN (Reason: for abdominal pain) Qty: 90 3RF pantoprazole 40 mg tablet,delayed release (DR/EC) 40 mg PO DAILY Qty: 90 3RF Primary Care Provider: Ciara Dhillon NP Referrals: Ciara Dhillon NP, [facility] [Primary Care Provider] - 3-5 Days if not improving Activity Restrictions/Additional Instructions: 1. Stop taking the tramadol while you are on Percocet. 2. If you develop fever or chills or pain is unbearable follow-up with your doctor or return to the emergency department Print Language: Tajik Disposition Disposition: Home, Self Care
--- OUTSIDE RECORDS SUMMARY | 2025-02-27 18:08 | XMS RPT_ITS | CCD ---
Author Organization [facility] Care Team Providers Care Pediatric Critical Care Nurse Name Role Phone IGNACIO NEWMAN, DR SELENE Gresham Primary Care Physician Selene Pierre MD Primary Care Provider Marti ROJAS, Ismael Guy (Rn)(Hist) Unavailable Unavailable Quin Nolan DO Unavailable Jennifer Arias MD Unavailable Ronit Rahman DO Unavailable Kj Rowe MD Unavailable Ronit Rahman DO Unavailable DR SELENE PIERRE MD Primary Care Physician Selene Pierre MD Primary Care Provider Ismael Kidd RN (Rn)(Hist) Unavailable Unavailable Quin Nolan DO Unavailable Jennifer Arias MD Unavailable Ronit Rahman DO Unavailable Kj Rowe MD Unavailable Ronit Rahman DO Unavailable Selene Pierre MD Primary Care Provider Marti ROJAS, Ismael Guy (Rn)(Hist) Unavailable Unavailable Quin Nolan DO Unavailable Jennifer Arias MD Unavailable Ronit Rahman DO Unavailable Kj Rowe MD Unavailable Ronit Rahman DO Unavailable Dr. Selene Pierre Primary Care Provider Dr. Selene Pierre Referring Provider CY Baker Attending Provider CY Mclain Attending Provider Dr. Usama Sarmiento Attending Provider Corina 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, 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-C Julio Primary Care Provider Corina 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, 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-C Julio Referring Provider [phone] CY Reeves Attending Provider Briana TAPIA, 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-C Jaci Mazariegos Attending Provider [phone] Corina PROCTORN.TRACY, Julio Roberson Primary Care Provider Dr. Selene Pierre Primary Care Provider Dr. Selene Pierre Referring Provider CY Baker Attending Provider CY Mclain Attending Provider [phone] Dr. Usama Sarmiento Attending Provider [phone] Corina TAPIA, 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-C Julio Primary Care Provider Corina TAPIA, 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-C Julio Referring Provider [phone] CY Reeves Attending Provider Briana TAPIA, 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-C Jaci Mazariegos Attending Provider [phone] MD GIANNI CERVANTES [facility] Other Provider Unavailable Dr. Isaac Nichols Attending Provider Dr. Andrez Pitts Attending Provider [phone] Dr. Andrez Pitts Other Provider [phone] Dr. Selene Pierre Primary Care Provider Dr. Selene Pierre Referring Provider Dr. Isaac Nichols Attending Provider Dr. Selene Pierre Referring Provider Corina 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, 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-C Julio Primary Care Provider [phone] Corina 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, 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-C Julio Referring Provider Nancy BENOIT, CY Shah Attending Provider [phone] Dr. Usama Sarmiento Attending Provider [phone] Michael Rawls Attending Provider [phone] Corina 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, 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-C Julio Primary Care Provider Briana TAPIA, 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-C Jaci Mazariegos Attending Provider [phone] Dr. Michael Rawls Admit Provider [phone] Michael Rawls Other Provider [phone] Michael Rawls Referring Provider [phone] Marti RN, Ismael Guy (Rn)(Hist) Unavailable Unavailable Quin Nolan DO Unavailable Ronit Rahman DO Unavailable Corina PROCTORN.TRACY, Julio Roberson Primary Care Provider Selene Pierre MD Primary Care Provider [phone] Michael Rawls Attending Provider [phone] Corina TAPIA, 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-C Julio Referring Provider Dr. Andrez Pitts Attending Provider [phone] Corina TAPIA, 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-C Julio Primary Care Provider Ronit Rahman DO Unavailable Ronit Rahman DO Unavailable Corina TAPIA, 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-C Julio Referring Provider Dr. Andrez Pitts Attending Provider [phone] Corina TAPIA, 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-C Julio Primary Care Provider [phone] Dr. Michael Rawls Attending Provider [phone] Guillermina, Dr. Usama Attending Provider [phone] Corina MECHANICAL FIELD ENGINEER.Julio MOLINA Primary Care Provider Hong Andrez B Unavailable Selene Pierre MD Primary Care Provider JULIO ARRIAGA CNP Consulting Unavailable FREDI JONES MD Primary Care Unavailabl e DUMANDAN, FREDI NEWMAN Admitting Unavailabl e DUMANDAN, FREDI NEWMAN Attending Unavailabl e PROVIDER, UNKNOWN Consulting Unavailable PROVIDER, UNKNOWN Consulting Unavailable WINDNACAROLYNN RAMÍREZA TOBACCO SAMPLER Admitting Unavailab le CORINAJULIO CNP Consulting Unavailable WINDNAGEL, CLARICE TRACY Attending Unavailab le WINDNAGEL, CLARICE TRACY Primary Care Unavailab le PROVIDER, UNKNOWN Consulting Unavailable PROVIDER, UNKNOWN Consulting Unavailable FREDI JONES MD Attending Unavailabl e CORINAJULIO JONAS CNP Consulting Unavailable KAREN, FREDI NEWMAN Primary Care Unavailabl e DUMANDAN, FREDI NEWMAN Admitting Unavailabl e PROVIDER, UNKNOWN Consulting Unavailable PROVIDER, UNKNOWN Consulting Unavailable JULIO ARRIAGA CNP Primary Care Unavailable JULIO ARRIAGA CNP Admitting Unavailable JULIO ARRIAGA CNP Attending Unavailable JULIO ARRIAGA CNP Consulting Unavailable PROVIDER, UNKNOWN Consulting Unavailable PROVIDER, UNKNOWN Consulting Unavailable JULIO ARRIAGA CNP Consulting Unavailable PROVIDER, UNKNOWN Consulting Unavailable PROVIDER, UNKNOWN Consulting Unavailable JULIO ARRIAGA CNP Primary Care Unavailable JULIO ARRIAGA CNP Admitting Unavailable JULIO ARRIAGA CNP Attending Unavailable JULIO ARRIAGA CNP Consulting Unavailable PROVIDER, UNKNOWN Consulting Unavailable PROVIDER, UNKNOWN Consulting Unavailable JULIO ARRIAGA CNP Primary Care Unavailable JULIO ARRIAGA CNP Admitting Unavailable JULIO ARRIAGA CNP Attending Unavailable JULIO ARRIAGA CNP Consulting Unavailable CLARICE LEÓN CNP Referring Unavailab le PROVIDER, UNKNOWN Consulting Unavailable PROVIDER, UNKNOWN Consulting Unavailable JULIO ARRIAGA CNP Consulting Unavailable FREDI JONES MD Primary Care Unavailabl e DUMANDADawn, FREDI NEWMAN Admitting Unavailabl e DUMANDAN, FREDI NEWMAN Attending Unavailabl e PROVIDER, UNKNOWN Consulting Unavailable PROVIDER, UNKNOWN Consulting Unavailable Ronit Rahman DO Unavailable Kj Rowe MD Unavailable Ronit Rahman DO Unavailable Kenya Garcia MD Unavailable Toan NEWMAN, Dayaneth Unavailable Karen NEWMAN, Fredi Roberson Unavailable Michel SAMUEL, Sarah Jamison Unavailable Raul Woody Unavailable Unavailabl ofelia Jones MD, Fredi Unavailable [phone] Tali BENAVIDES, Josh Mcduffie Unavailable Dobishop ROJAS, Roxanne Unavailable Unavailable Corina 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-C, Julio Primary Care Provider Corina 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-C, Julio Referring Provider [phone] Hong DO, Dr. Maguire Attending Provider Jessa BENAVIDES, Dr. Scott Emergency Provider Radha NEWMAN, Dr. Kenya Mcduffie Admit Provider Radha NEWMAN, Dr. Kenya Mcduffie Attending Provider Radha NEWMAN, Dr. Kenya Mcduffie Other Provider Yoav NEWMAN, Dr. Armas Attending Provider Yoav NEWMAN, Dr. Armas Referring Provider Yoav NEWMAN, Dr. Armas Emergency Provider Tali BENAVIDES, Dr. Jeong Attending Provider Tali BENAVIDES, Dr. Jeong Referring Provider Susie NEWMAN, Dr. Stark Attending Provider Victor M BENAVIDES, Dr. Franklin Emergency Provider [phone] Dr. Rigoberto Dow DO Attending Provider Pb BENAVIDES, Dr. Ratliff Emergency Provider [phone] JULIO ARRIAGA Primary Care Unavailable ORTEGA CARDENAS Attending Unavailable ORTEGA CARDENAS Admitting Unavailable ARIAS, JENNIFER Attending Unavailable JLUIO ARRIAGA Primary Care Unavailable ARIAS, JENNIFER Referring Unavailable JULIO ARRIAGA Primary Care Unavailable ARIAS, JENNIFER Referring Unavailable JULIO ARRIAGA Primary Care Unavailable ARIAS, JENNIFER Referring Unavailable JULIO ARRIAGA Primary Care Unavailable ARIAS, JENNIFER Referring Unavailable JULIO ARRIAGA Primary Care Unavailable MICHEL, SARAH Attending Unavailable JULIO ARRIAGA Primary Care Unavailable ARIAS, JENNIFER Referring Unavailable JULIO ARRIAGA Primary Care Unavailable MICHEL, SARAH Attending Unavailable JULIO ARRIAGA Primary Care Unavailable Corina 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-C, Julio Primary Care Provider Corina 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-C, Julio Referring Provider Dr. Gaudencio Ambriz DO Attending Provider Woo Thapa MD Emergency Provider Corina 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-C, Julio Primary Care Provider [phone] Woo Thapa MD Attending Provider [phone] Juna José 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-CMichelle Attending Provider Corina 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-C, Julio Referring Provider [phone] Corina 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-C, Julio Primary Care Provider Dr. Josh Bennett DO Attending Provider Dr. Josh Bennett DO Referring Provider Dr. Kenya Garcia MD Attending Provider JULIO ARRIAGA Primary Care Unavailable TOAN, DAYANETH Referring Unavailable JULIO ARRIAGA Primary Care Unavailable JULIO ARRIAGA Primary Care Unavailable TOAN, DAGREYUNG Referring Unavailable JULIO ARRIAGA Primary Care Unavailable JULIO ARRIAGA Primary Care Unavailable TOAN, DAGREYUNG Referring Unavailable JULIO ARRIAGA Primary Care Unavailable TOAN, DAESUNG Referring Unavailable CORINAJULIO JONAS Primary Care Unavailable TOAN, DAESUNG Referring Unavailable JULIO ARRIAGA Primary Care Unavailable TOAN, DAESUNG Referring Unavailable CORINAJULIO JONAS Primary Care Unavailable TOAN, DAESUNG Referring Unavailable TRACY VELEZ Referring Unavailable JULIO ARRIAGA Primary Care Unavailable SARAH PEARSON Referring Unavailable JULIO ARRIAGA Primary Care Unavailable JOSH BENNETT Referring Unavailable JULIO ARRIAGA Primary Care Unavailable JULIO ARRIAGA Primary Care Unavailable JOSH BENNETT Attending Unavailable KENYA GARCIA Referring Unavailable JULIO ARRIAGA Primary Care Unavailable JULIO ARRIAGA Primary Care Unavailable TOAN, DAESUNG Referring Unavailable JULIO ARRIAGA Primary Care Unavailable TOAN, DAESUNG Referring Unavailable JULIO ARRIAGA Primary Care Unavailable TOAN, DAESUNG Referring Unavailable JULIO ARRIAGA Primary Care Unavailable JULIO ARRIAGA Primary Care Unavailable TOAN, DAESUNG Referring Unavailable JULIO ARRIAGA Primary Care Unavailable JULIO ARRIAGA Primary Care Unavailable TOAN, DAESUNG Attending Unavailable JULIO ARRIAGA Primary Care Unavailable TOAN, DAESUNG Referring Unavailable RON, DELVIN Referring Unavailable JULIO ARRIAGA Primary Care Unavailable RON, DELVIN Referring Unavailable JULIO ARRIAGA Primary Care Unavailable RON, DELVIN Referring Unavailable JULIO ARRIAGA Primary Care Unavailable TOAN, DAESUNG Referring Unavailable TOAN, DAESUNG Attending Unavailable JULIO ARRIAGA Primary Care Unavailable JULIO ARRIAGA Primary Care Unavailable TOAN, DAESUNG Referring Unavailable JULIO ARRIAGA Primary Care Unavailable TOAN, DAESUNG Referring Unavailable JULIO ARRIAGA Primary Care Unavailable TOAN, DAESUNG Referring Unavailable RICCI ABREU Attending Unavailable JULIO ARRIAGA Primary Care Unavailable MASCI, JOSH A Referring Unavailable JULIO ARRIAGA Primary Care Unavailable JUANA, JENNIFER Referring Unavailable JULIO ARRIAGA Primary Care Unavailable JULIO ARRIAGA Primary Care Unavailable TOAN, DAESUNG Referring Unavailable JULIO ARRIAGA Primary Care Unavailable TOAN, DAESUNG Referring Unavailable JULIO ARRIAGA Primary Care Unavailable MASCI, JOSH A Referring Unavailable MASCI, JOSH A Referring Unavailable JULIO ARRIAGA Primary Care Unavailable JULIO ARRIAGA Primary Care Unavailable TOAN, DAESUNG Referring Unavailable MASCI, JOSH A Referring Unavailable JULIO ARRIAGA Primary Care Unavailable MASCI, JOSH A Referring Unavailable JULIO ARRIAGA Primary Care Unavailable MASCI, JOSH A Referring Unavailable JULIO ARRIAGA Primary Care Unavailable TOAN, DAESUNG Attending Unavailable MASCI, JOSH A Referring Unavailable JULIO ARRIAGA Primary Care Unavailable MASCI, JOSH A Referring Unavailable JULIO ARRIAGA Primary Care Unavailable JULIO ARRIAGA Primary Care Unavailable TOAN, DAESUNG Attending Unavailable ARIAS, JENNIFER Referring Unavailable JULIO ARRIAGA Primary Care Unavailable ARIAS, JENNIFER Referring Unavailable JULIO ARRIAGA Primary Care Unavailable TOAN, DAESUNG Referring Unavailable JULIO ARRIAGA Primary Care Unavailable TOAN, DAESUNG Attending Unavailable JULIO ARRIAGA Primary Care Unavailable MASCI, JOSH A Referring Unavailable JULIO ARRIAGA Primary Care Unavailable JUAN JOSÉ CHEEMA Attending Unavailable JULIO ARRIAGA Primary Care Unavailable JUAN JOSÉ CHEEMA Referring Unavailable JULIO ARRIAGA Primary Care Unavailable JOHNSARAH DOW Referring Unavailable MASCI, JOSH A Attending Unavailable JULIO ARRIAGA Primary Care Unavailable MASCI, JOSH A Referring Unavailable JULIO ARRIAGA Primary Care Unavailable JULIO ARRIAGA Primary Care Unavailable TOAN, DAESUNG Referring Unavailable JULIO ARRIAGA Primary Care Unavailable DELVIN RON Attending Unavailable JULIO ARRIAGA Primary Care Unavailable JULIO ARRIAGA Primary Care Unavailable TOAN, DAESUNG Attending Unavailable TOAN, DAESUNG Referring Unavailable JULIO ARRIAGA Primary Care Unavailable TOAN, DAESUNG Referring Unavailable JULIO ARRIAGA Primary Care Unavailable SHAWN BELTRAN Attending Unavailable JULIO ARRIAGA Primary Care Unavailable JULIO ARRIAGA Primary Care Unavailable TOAN, DAESUNG Referring Unavailable MASCI, JOSH A Referring Unavailable JULIO ARRIAGA Primary Care Unavailable MASCAiden, JOSH A Referring Unavailable JULIO ARRIAGA Primary Care Unavailable JULIO ARRIAGA Primary Care Unavailable TOAN, DAESUNG Referring Unavailable TOAN, DAESUNG Attending Unavailable JULIO ARRIAGA Primary Care Unavailable TOAN, DAESUNG Attending Unavailable JULIO ARRIAGA Primary Care Unavailable TOAN, DAESUNG Referring Unavailable JULIO ARRIAGA Primary Care Unavailable TOAN, DAESUNG Referring Unavailable DELVIN RON Attending Unavailable JULIO ARRIAGA Primary Care Unavailable JULIO ARRIAGA Primary Care Unavailable TOAN, DAESUNG Referring Unavailable JULIO ARRIAGA Primary Care Unavailable TOAN, DAESUNG Referring Unavailable JULIO ARRIAGA Primary Care Unavailable TOAN, DAESUNG Referring Unavailable JULIO ARRIAGA Primary Care Unavailable TOAN, DAESUNG Referring Unavailable JULIO ARRIAGA Primary Care Unavailable JULIO ARRIAGA Primary Care Unavailable JULIO ARRIAGA Primary Care Unavailable TOAN, DAESUNG Referring Unavailable JULIO ARRIAGA Primary Care Unavailable JULIO ARRIAGA Primary Care Unavailable TOAN, DAESUNG Referring Unavailable JULIO ARRIAGA Primary Care Unavailable TOAN, DAESUNG Referring Unavailable CORINA, JULIO D Primary Care Unavailable MASCI, JOSH A Referring Unavailable CORINA, JULIO D Primary Care Unavailable TOAN, DAESUNG Referring Unavailable CORINA, JULIO D Primary Care Unavailable MASCI, JOSH A Referring Unavailable CORINA, JULIO D Primary Care Unavailable MASCI, JOSH A Attending Unavailable MASCI, JOSH A Referring Unavailable CORINA, JULIO D Primary Care Unavailable CORINA, JULIO D Primary Care Unavailable TOAN, DAESUNG Referring Unavailable CORINA, JULIO D Primary Care Unavailable TOAN, DAESUNG Referring Unavailable Corina, Julio Referring Unavailable Michelle Baker Attending Unavailable Corina, Julio Primary Care Unavailable Friend, Andrez Attending Unavailable Corina, Julio Referring Unavailable Corina, Julio Primary Care Unavailable Lincoln Richards Attending Unavailable Masci, Josh Referring Unavailable Corina, Julio Primary Care Unavailable Corina, Julio Primary Care Unavailable WanKenya fuentes Consulting Unavailable Kenya Garcia Attending Unavailable Masci, Josh Attending Unavailable Masci, Josh Referring Unavailable Corina, Julio Primary Care Unavailable Corina, Julio Primary Care Unavailable Friend, Andrez Referring Unavailable Friend, Andrez Attending Unavailable Corina, Julio Attending Unavailable Corina, Julio Primary Care Unavailable Corina, Julio Referring Unavailable Masci, Josh Referring Unavailable Masci, Josh Attending Unavailable Corina, Julio Primary Care Unavailable Corina, Julio Primary Care Unavailable Gaudencio Ambriz Attending Unavailable WINDNAGELCLARICE Attending Unavailable WINDNAGELCLARICE Referring Unavailable Corina, Julio Primary Care Unavailable Corina, Julio Referring Unavailable Friend, Andrez Attending Unavailable Corina, Julio Primary Care Unavailable Corina, Julio Primary Care Unavailable Friend, Andrez Attending Unavailable Corina, Julio Referring Unavailable Corina, Julio Referring Unavailable Friend, Andrez Attending Unavailable Corina, Julio Primary Care Unavailable Wanek, Kenya A Attending Unavailable Corina, Julio Primary Care Unavailable Masci, Josh Referring Unavailable Masci, Josh Attending Unavailable Corina, Julio Primary Care Unavailable Corina, Julio Attending Unavailable Corina, Julio Referring Unavailable Corina, Julio Primary Care Unavailable Corina, Julio Primary Care Unavailable Corina, Julio Referring Unavailable Friend, Andrez Attending Unavailable Corina, Julio Primary Care Unavailable RiveraekSwapnilen A Admitting Unavailable Swapnil Garciaen A Attending Unavailable Gaudencio Ambriz Attending Unavailable Corina, Julio Primary Care Unavailable Rigoberto Dow Attending Unavailable Corina, Julio Primary Care Unavailable ReWoo roche Attending Unavailable Corina, Julio Primary Care Unavailable Corina, Julio Primary Care Unavailable Cason, Pawel Attending Unavailable Cason, Pawel Referring Unavailable Corina, Julio Primary Care Unavailable Wanek, Kenya A Attending Unavailable Corina, Julio Referring Unavailable Wanek, Kenya A Admitting Unavailable Wanek, Kenya A Attending Unavailable Wanek, Kenya A Consulting Unavailable Corina, Julio Primary Care Unavailable Corina, Julio Referring Unavailable Corina, Julio Primary Care Unavailable Friend, Andrez Consulting Unavailable Friend, Andrez Attending Unavailable Friend, Andrez Attending Unavailable Corina, Julio Referring Unavailable Corina, Julio Primary Care Unavailable Corina, Julio Referring Unavailable Michelle Baker Attending Unavailable Corina, Julio Primary Care Unavailable Corina, Julio Referring Unavailable Wanek, Kenya A Attending Unavailable Julio Arriaga Primary Care Unavailable Allergies Allergy Classification Reported Allergen(s) Allergy Type Date of Onset Reaction(s) Facility Acetaminophen / HYDROcodone (1 source) Acetaminophen / HYDROcodone Drug Allergy 4 Vomiting [facility] Doxycycline (1 source) Doxycycline Drug Allergy 5 Anaphylaxis [facility] DULoxetine (1 source) DULoxetine Drug Allergy 4 Intolerance [facility] Opioid Agonists (2 sources) HYDROmorphone Drug Allergy 4 Vomiting [facility] (20 sources) Acetaminophen / HYDROcodone; Translations: [acetaminophen-hy drocodone] Drug Allergy 5 Vomiting [facility] (4 sources) Doxycycline; Translations: [doxycycline] Drug Allergy ORAL SWELLING, ITCHING [facility] (4 sources) HYDROmorphone; Translations: [hydromorphone] Drug Allergy NAUSEA AND VOMITING [facility] (4 sources) Naproxen; Translations: [naproxen] Drug Allergy ANAPHYLAXIS [facility] (4 sources) misc non-codified allergy 1 Drug allergy [facility] 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: horse serum (20 sources) Doxycycline; Translations: [DOXYCYCLINE CALCIUM] Drug Allergy 5 Anaphylaxis [facility] Work Phone: (20 sources) DULoxetine; Translations: [DULOXETINE] Drug Allergy 5 Intolerance [facility] (20 sources) HYDROmorphone; Translations: [HYDROMORPHONE (BULK)] Drug Allergy 2 Vomiting [facility] (20 sources) Morphine; Translations: [MORPHINE] Drug Allergy 6 Vomiting [facility] (20 sources) Non-steroidal anti-inflammatory agent; Translations: [NSAIDS (NON-STEROIDAL ANTI-INFLAMMATORY DRUG)] Drug Allergy 5 Anaphylaxis [facility] Work Phone: (20 sources) horse serum [Other] Propensity to adverse reactions 5 [facility] Work Phone: (20 sources) Non-steroidal anti-inflammatory agent Drug Allergy 5 Anaphylaxis [facility] Work Phone: (20 sources) Doxycycline; Translations: [doxycycline hyclate] Drug Allergy 3 Anaphylaxis [facility] (20 sources) Doxycycline; Translations: [doxycycline monohydrate] Drug Allergy 3 Anaphylaxis [facility] (20 sources) HYDROcodone; Translations: [hydrocodone bitartrate] Drug Allergy 3 STOMACH UPSET [facility] (20 sources) HYDROmorphone; Translations: [hydromorphone HCl] Drug Allergy 3 Vomiting [facility] (20 sources) Nonsteroidal Anti-inflammatory Compounds Allergy to substance 3 Anaphylaxis [facility] (20 sources) Horse/Equine Containing Products; Translations: [HORSE/EQUINE CONTAINING PRODUCTS] Drug Allergy 4 Swelling [facility] (1 source) Acetaminophen / HYDROcodone Drug Allergy [facility] Repository (1 source) celecoxib Drug Allergy [facility] Repository (1 source) Doxycycline Drug Allergy [facility] Repository (1 source) DULoxetine Drug Allergy [facility] Repository (1 source) HYDROmorphone Drug Allergy [facility] Repository (1 source) Morphine Drug Allergy [facility] Repository (1 source) NSAID Drug allergy (disorder) [facility] Repository (3 sources) Acetaminophen / HYDROcodone; Translations: [HYDROCODONE-ACET AMINOPHEN] Drug Allergy 4 [facility] Repository (1 source) Doxycycline Drug Allergy 5 [facility] Repository (1 source) DULoxetine Drug Allergy 5 [facility] Repository (1 source) Morphine Drug Allergy 5 [facility] Repository (1 source) NSAIDs Drug allergy (disorder) 5 [facility] Repository Medications Current Medications Medication Drug Class(es) Dates Sig (Normalized) Sig (Original) >Nebulizer For Home (20 sources) Start: 12-01-2018 >Nebulizer For Home Indications: Moderate persistent asthma with acute exacerbation (HCC) , Multifocal pneumonia Nebulizer for home use. Diagnosis: Moderate persistent asthma with acute exacerbation and pneumonia 1 Each 12/01/2018 Active Start: 12-01-2018 >Nebulizer For Home Indications: Moderate persistent asthma with acute exacerbation , Multifocal pneumonia Nebulizer for home use. Diagnosis: Moderate persistent asthma with acute exacerbation and pneumonia 1 Each 12/01/2018 Active Start: 12-01-2018 >Nebulizer For Home Indications: Moderate persistent asthma with acute exacerbation , Multifocal pneumonia Nebulizer for home use. Diagnosis: Moderate persistent asthma with acute exacerbation and pneumonia 1 Each 0 12/01/2018 Active 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: Nebulizer for home u se. Diagnosis: Moderate persistent asthma with acute exacerbation and pneumonia 0.4 ml abatacept 125 mg/ml prefilled syringe (18 sources) Selective T Cell Costimulation Modulator Start: 12-17-2022 Abatacept (Orencia) 50 mg/0.4 mL syringe Active 50 mg SC EVERY MONTH December 17, 2022 12:00am RA On Hold: due to chemo Start: 08-15-2022 Abatacept (Ore ncia) 50 mg/0.4 mL syringe Active MG SC August 15, 2022 1:00am abatacept/maltose (ORENCIA, WITH MALTOSE, INTRAVENOUS) (20 sources) abatacept/julian e (ORENCIA, WITH MALTOSE, INTRAVENOUS) Inject intravenously. Active abatacept/julian e (ORENCIA, WITH MALTOSE, INTRAVENOUS) Inject intravenously. 0 Active 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: Inject intravenously . [id number] 200 actuat albuterol 0.09 mg/actuat metered dose inhaler (20 sources) beta2-Adrenergic Agonist Start: 04-25-2021 End: 09-16-2024 albuterol (PROVENTIL) 2.5 mg /3 mL (0.083 %) nebulizer solution Indications: COVID-19 long hauler Use 3 mL via nebulizer every 4 hours as needed for wheezing/shortness of breath. Use over 5-15minutes. 90 mL 2 04/25/2021 09/16/2024 Discontinued Start: 02-16-2020 End: 01-18-2022 take 2 puff(s) by inhalation every four hours as needed for wheezing albuterol HFA (VENTOLIN HFA) 90 mcg/actuation inhaler Indications: SOB (shortness of breath) Inhale 2 Puffs as instructed every 4 hours as needed for wheezing/shortness of breath. 1 Inhaler 01/19/2022 Active Start: 08-26-2019 take 2.5 mg by inhal ation every six hours as needed albuterol (PROVENTIL) 2.5 mg /3 mL (0.083 %) nebulizer solution Use 3 mL via nebulizer every 6 hours as needed for Wheezing/Shortness of Breath. 1 Package 08/26/2019 Active Start: 10-07-2015 ProAir HFA MDI (90 mcg/inh) inhalation aerosol Dose = 2 puff(s), Inhalation, AsDirected, PRN for wheezing, 0 Refill(s) Start Date: 10/07/15 Status: Ordered Start: 10-07-2015 ProAir HFA MDI (90 mcg/inh) inhalation aerosol Dose = 2 puff(s), Inhalation, AsDirected, PRN for wheezing, 0 Refill(s) Start Date: 10/07/15 Status: Ordered Start: 03-13-2015 Albuterol Sulf ate 1 INHALER inhaler Active 2 NMA INHALATION EVERY 4 HOURS NEEDED as needed for Shortness Of Breath March 13, 2015 12:00am Start: 03-13-2015 take 1 puff(s) by in halation every four hours as needed Albuterol Sulfate Active 2 PUFF INHALATION EVERY 4 HOURS NEEDED March 12, 2015 11:00pm Start: 03-13-2015 take 1 puff(s) by in halation every four hours as needed Albuterol Sulfate Active 2 PUFF INHALATION EVERY 4 HOURS NEEDED March 13, 2015 12:00am Start: 03-13-2015 take 1 puff(s) by in halation every four hours as needed Albuterol Sulfate Active 2 PUFF INHALATION EVERY 4 HOURS NEEDED March 13, 2015 12:00am 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: Use 3 mL via nebuliz er every 6 hours as needed for Wheezing/Shortness of Breath. Use 3 mL via nebuliz er every 4 hours as needed for wheezing/shortness of breath. Use over 5-15minutes. Inhale 2 Puffs as in structed every 4 hours as needed for wheezing/shortness of breath. amLODIPine 5 mg oral tablet (20 sources) Dihydropyridine Calcium Channel Soledad Start: 08-15-19 take 7.5 mg by mouth once daily amLODIPine (NORVASC) 5 mg tablet Take 7.5 mg by mouth once daily. 08/15/2022 Active Start: 08-15-2022 take 7.5 mg by mouth once yusef y Amlodipine Active 7.5 MG PO DAILY August 15, 2022 1:00am Start: 08-15-2022 take 5 mg by mouth once daily Amlodipine Active 5 MG PO DAILY August 15, 2022 1:00am 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: Take by mouth. Takes 7.5 mg each day apixaban 5 mg oral tablet (20 sources) Factor Xa Inhibitor Start: 11-26-2024 End: 01-05-2025 take 1 tablet by mouth twice daily apixaban (ELIQUIS) 5 mg tab(s) Take 1 tablet by mouth two times a day. 60 tablet 3 01/05/2025 Active Start: 10-24-2024 Apixaban (Eliq uis Dvt-Pe Treat 30d Start) 5 mg (74 tabs) tablets,dose pack Active 10 mg PO Q12H October 24, 2024 12:00am Start: 10-19-2024 End: 11-18-2024 take 2 tablets by mouth twice daily, then take 1 tablet by mouth twice daily apixaban (ELIQUIS) 5 mg (74 tabs) Take 2 tablets (10 mg) by mouth twice daily for 7 days. Then take 1 tablet (5 mg) by mouth twice daily for 23 days 74 tablet 10/19/2024 11/18/2024 Start: 10-19-2024 End: 11-18-2024 take 2 tablets by mouth twice daily, then take 1 tablet by mouth twice daily apixaban (ELIQUIS) 5 mg (74 tabs) Take 2 tablets (10 mg) by mouth twice daily for 7 days. Then take 1 tablet (5 mg) by mouth twice daily for 23 days 74 tablet 10/19/2024 11/18/2024 Active Start: 01-24-2023 End: 07-25-2023 take 1 tablet by mouth twice daily Apixaban (Eliquis) 2.5 mg tablet Discontinued 2.5 mg PO TWICE A DAY 30 0 January 24, 2023 12:00am July 25, 2023 1:11pm Artificial Tears ophthalmic solution (4 sources) Start: 10-07-2015 take 1 dose into the eye(s) three times daily as needed Artificial Tears ophthalmic solution Dose = 2 drop(s), Ophthalmic, TID, PRN for dry eyes, # 30 mL, 0 Refill(s) Start Date: 10/07/15 Status: Ordered ascorbic acid 500 mg oral tablet (4 sources) Vitamin C Start: 08-31-2021 ascorbic acid Dose : 500 mg = 1 tab(s), Oral, BID, 0 Refill(s) Start Date: 08/31/21 Status: Ordered atorvastatin 80 mg oral tablet (20 sources) HMG-CoA Reductase Inhibitor Start: 11-15-2023 take 1 tablet by mouth at bedtime Atorvastatin 80 mg tablet Active 80 mg PO AT BEDTIME November 15, 2023 12:00am atropine sulfate 0.025 mg / diphenoxylate hydrochloride 2.5 mg oral tablet (1 source) Anticholinergic, Cholinergic Muscarinic Antagonist, Antidiarrheal Start: 02-02-2025 Diphenoxylate-Atr opine (Lomotil) 2.5-0.025 mg tablet Active 1 {tbl} PO THREE TIMES A DAY as needed for diarrhea 90 0 February 02, 2025 12:00am budesonide 3 mg delayed release oral capsule (20 sources) Corticosteroid Start: 11-04-2023 take 2 capsules by mouth once budesonide, enteric coated (ENTOCORT EC) 3 mg 24 hr capsule Take 2 capsules by mouth every afternoon. 11/04/2023 Active Start: 07-05-2023 End: 02-09-2025 take 2 capsules by mouth once daily Budesonide 3 mg capsule,delayed,extend.release Discontinued 6 mg PO DAILY 60 5 January 25, 2025 4:24pm February 09, 2025 9:48am Start: 07-05-2023 take 6 mg by mouth o nce daily Budesonide Active 6 MG PO DAILY 60 30 July 05, 2023 1:00am smoking cessation 12 hr buPROPion hydrochloride 150 mg extended release oral tablet (20 sources) Aminoketone Start: 09-02-2024 take 1 tablet by mouth at bedtime, then take 1 tablet by mouth every twelve hours Bupropion Hcl (Smoking Deter) 150 mg tablet extended release 12 hr Active 150 mg PO AT BEDTIME September 02, 2024 1:00am Start: 10-24-2020 End: 05-08-2022 take 1 tablet by mouth once daily buPROPion XL (WELLBUTRIN XL) 150 mg 24 hr tablet Indications: Anxiety and depression Take 1 tablet by mouth once daily. 90 tablet 3 11/20/2021 Active Start: 11-13-2017 End: 09-02-2024 take 1 tablet by mouth every twenty-four hours at bedtime Bupropion Hcl 150 MG tablet extended release 24 hr Discontinued 150 mg PO AT BEDTIME November 13, 2017 12:00am September 02, 2024 4:08pm MENTAL HEALTH Start: 11-13-2017 take 150 mg by mouth at bedtim e Bupropion Hcl Active 150 MG PO AT BEDTIME November 13, 2017 12:00am 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: Take 1 tablet by brielle th once daily. calcium carbonate 600 mg chewable tablet (4 sources) Start: 10-07-19 calcium carbonate 600 mg oral tablet, chewable Dose : 1,200 mg = 2 tab(s), Chewed, TID, 0 Refill(s) Start Date: 10/07/15 Status: Ordered Centrum Silver oral tablet (4 sources) Start: 10-07-19 take 1 tablet by mouth once daily Centrum Silver oral tablet Dose = 1 tab(s), Oral, Daily, 0 Refill(s) Start Date: 10/07/15 Status: Ordered cholecalciferol 1.25 mg oral capsule (20 sources) Vitamin D Start: 10-25-19 take 1 capsule by mouth once daily Cholecalciferol (Vitamin D3) 1,250 mcg (50,000 unit) capsule Active 1250 ug PO DAILY October 24, 2024 12:00am Start: 04-29-2023 End: 02-03-2025 take 1 capsule by mouth every other week cholecalciferol, Vitamin D3, (VITAMIN D3) 1,250 mcg (50,000 unit) cap capsule Indications: Rheumatoid arthritis involving multiple sites with positive rheumatoid factor (HCC) , Vitamin D deficiency Take 1 capsule by mouth every other week. 90 capsule 1 02/03/2025 Active Start: 10-30-2022 End: 04-29-2023 take 1 capsule by mouth every week cholecalciferol, Vitamin D3, (VITAMIN D3) 1,250 mcg (50,000 unit) cap capsule Indications: Vitamin D deficiency , Rheumatoid arthritis involving multiple sites with positive rheumatoid factor (HCC) Take 1 capsule by mouth one time a week. 12 capsule 1 10/30/2022 04/29/2023 Discontinued (Adjust Sig - Block E-Cancel) Start: 01-27-2021 End: 06-26-2022 take 1 capsule by mouth every week cholecalciferol, Vitamin D3, (VITAMIN D3) 1,250 mcg (50,000 unit) cap capsule Indications: Vitamin D deficiency , Rheumatoid arthritis involving multiple sites with positive rheumatoid factor (HCC) Take 1 capsule by mouth one time a week. 12 capsule 1 01/27/2021 09/03/2021 Discontinued 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: Take 1 capsule by mo [facility] one time a week. Take 1 capsule by [facility] every other week. clindamycin 300 mg oral capsule (20 sources) Lincosamide Antibacterial Start: 09-25-19 End: 10-17-19 take 1 capsule by mouth three times daily clindamycin (CLEOCIN) 300 mg capsule Take 300 mg by mouth three times a day. 09/25/2024 10/16/2024 Discontinued Start: 09-25-2024 End: 10-02-2024 take 1 capsule by mouth four times daily Clindamycin Hcl 300 mg capsule Discontinued 300 mg PO 4 TIMES DAILY 28 7 0 September 25, 2024 1:00am October 02, 2024 10:58am [id number] usama (BMX 1:1:1) 1:1:1 liqd (20 sources) Start: 10-12-2024 take 10 mL by mouth every four hours as needed [id number]-dhbhtq-[id number] (BMX 1:1:1) 1:1:1 liqd Indications: Stomatitis and mucositis Take 10 mL by mouth every 4 hours as needed. 300 mL 1 10/12/2024 Active docusate sodium 100 mg oral capsule (4 sources) Start: 08-31-2021 Colace 100 mg oral capsule D ose : 100 mg = 1 cap(s), Oral, BID, PRN Constipation, 0 Refill(s) Start Date: 08/31/21 Status: Ordered Dulera 100 mcg-5 mcg/inh Met ered Dose Inhaler (4 sources) Start: 08-29-2021 take 1 dose by inhalat ion twice daily Dulera 100 mcg-5 mcg/inh Metered Dose Inhaler Dose = 2 puff(s), Inhalation, BID, # 13 gram(s), 0 Refill(s) Start Date: 08/29/21 Status: Ordered ergocalciferol 1.25 mg oral capsule (20 sources) P r o v i t a m i n D 2 C o m p o u n d Start: 11-05-2022 Ergocalciferol (Vitamin D2) (Vitamin D2) 1,250 mcg (50,000 unit) Capsule Active 1250 ug PO .EVERY OTHER WEEK November 05, 2022 12:00am SUPPELEMNT Start: 11-05-2022 Ergocalciferol (Vitamin D2) (Vitamin D2) 1,250 mcg (50,000 unit) Capsule Active 1250 MCG PO WE November 05, 2022 12:00am Start: 11-13-2017 End: 07-05-2022 Ergocalciferol (Vitamin D2) 50,000 UNIT capsule Discontinued [id number] U PO MORALEZ November 13, 2017 12:00am July 05, 2022 9:07am SUPPLEMENT ergocalciferol (D2) 1000 units oral tablet (4 sources) Start: 10-07-2015 ergocalciferol (D2) 1000 units oral tablet Dose : 1,000 unit(s) = 1 tab(s), Oral, Daily, 0 Refill(s) Start Date: 10/07/15 Status: Ordered ferrous sulfate 325 mg oral tablet (4 sources) Start: 08-31-2021 IRON (ferrous sulfate 325 mg) 65 mg oral tablet Dose : 325 mg = 1 tab(s), Oral, TIDM, 0 Refill(s) Start Date: 08/31/21 Status: Ordered FLUoxetine 20 mg oral capsule (20 sources) Serotonin Reuptake Inhibitor Start: 03-14-2022 take 3 capsules by mouth once daily FLUoxetine (PROZAC) 20 mg capsule Indications: Depression with anxiety Take 3 capsules by mouth once daily. 270 capsule 3 03/14/2022 Active Start: 12-13-2015 End: 03-12-2022 take 3 capsules by mouth once daily FLUoxetine (PROZAC) 20 mg capsule Indications: Depression with anxiety Take 3 capsules by mouth once daily. 270 capsule 3 03/14/2022 Active Start: 12-13-2015 take 60 mg by mouth at bedtime Fluoxetine Active 60 MG PO AT BEDTIME December 13, 2015 12:00am Start: 10-07-2015 FLUoxetine 20 mg oral tablet Dose : 60 mg = 3 tab(s), Oral, qDay, # 30 tab(s), 0 Refill(s) Start Date: 10/07/15 Status: Ordered 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: Take [address] [facility] once daily. furosemide 20 mg oral tablet (20 sources) Loop Diuretic Start: 10-24-2024 take 1 tablet by mouth once daily Furosemide 20 mg tablet Active 20 mg PO DAILY October 24, 2024 12:00am Start: 10-08-2019 End: 05-21-2023 take 1 tablet by mouth once daily furosemide (LASIX) 40 mg tablet take 1 tablet by mouth once daily 90 tablet 3 02/21/2021 09/03/2021 Discontinued Start: 02-02-2019 End: 02-09-2019 Lasix 40 mg oral tablet Dose : 40 mg = 1 tab(s), Oral, Daily, # 7 tab(s), 0 Refill(s) Start Date: 02/02/19 Stop Date: 02/09/19 Status: Ordered 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: Take 1 tablet by brielle once daily. glycerin 2 mg/ml / hypromellose 2 mg/ml / polyethylene glycol 400 10 mg/ml ophthalmic solution (20 sources) Non-Standardized Chemical Allergen Start: take 15 mL into the eye(s) four times daily Peg 185-Biyrmlqikwnt-Wsvjne in (Dry Eye Relief) 15 ML drops Active 1 NMA OP 4 TIMES DAILY November 13, 2017 12:00am DRY EYES iv contrast (will be provided with radiology test) (20 sources) Start: End: iv contrast (will be provided with radiology test) Indications: Anal cancer (HCC) MRI Pelvis Inject, intravenously, once for 1 dose. No IV access, insert saline lock prior to the beginning of sedation, infusion, injection of imaging exam. Discontinue saline lock post exam. If Pt has a central line or IVAD, may access for administration according to line specific nursing protocol. Once exam is complete flush line and de-access according to line specific nursing protocol in the MR contrast administration guidelines link. 1 Each 09/16/2024 09/17/2024 Start: 09-16-2024 iv contrast (w ill be provided with radiology test) Indications: Anal cancer (HCC) CT Chest W -Inject, intravenously, once for 1 dose.No IV access, insert saline lock prior to the beginning of sedation, infusion, injection of imaging exam. Discontinue saline lock post exam. If Pt. has a central line or IVAD, may access for administration according to line specific nursing protocol. Once exam is complete flush line and de-access according to line specific nursing protocol in the CT contrast administration guidelines link. 1 Each 09/16/2024 Active Start: 09-16-2024 End: 09-17-2024 iv contrast (will be provide d with radiology test) Indications: Anal cancer (HCC) MRI Pelvis Inject, intravenously, once for 1 dose. No IV access, insert saline lock prior to the beginning of sedation, infusion, injection of imaging exam. Discontinue saline lock post exam. If Pt has a central line or IVAD, may access for administration according to line specific nursing protocol. Once exam is complete flush line and de-access according to line specific nursing protocol in the MR contrast administration guidelines link. 1 Each 09/16/2024 09/17/2024 Active leflunomide 20 mg oral tablet (20 sources) Antirheumatic Agent Start: 03-22-2018 End: 04-13-2025 take 1 tablet by mouth once daily leflunomide (ARAVA) 20 mg tablet Indications: High risk medication use , Rheumatoid arthritis involving multiple sites with positive rheumatoid factor (HCC) , Localized osteoporosis without current pathological fracture Take 1 tablet by mouth once daily. 90 tablet 01/13/2025 04/13/2025 Active 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: Take 1 tablet by brielle th once daily. take 1 tablet by brielle th once daily lidocaine 25 mg/ml / prilocaine 25 mg/ml topical cream (20 sources) Antiarrhythmic, Amide Local Anesthetic Start: 11-02-2024 End: 11-02-2025 lidocaine-priloca ine (EMLA) 2.5-2.5 % cream Apply to affected area as needed. Apply ample amount to port site 60 minutes prior to accessing. 15 g 2 11/02/2024 11/02/2025 Active meclizine hydrochloride 25 mg oral tablet (20 sources) Antiemetic Start: 03-17-2024 take 1 tablet by mouth once daily as needed for dizziness Meclizine 25 mg tablet Active 25 mg PO DAILY NEEDED as needed for dizziness March 17, 2024 12:00am Start: 12-14-2015 End: 07-12-2017 take 1 tablet by mouth every eight hours as needed Meclizine 25 MG tablet Discontinued 25 mg PO EVERY 8 HOURS as needed for Vertigo December 14, 2015 2:15pm July 12, 2017 2:25pm take 1 tablet by brielle every eight hours as needed meclizine (ANTIVERT) 25 mg tab Take 25 mg by mouth three times a day as needed (for dizziness). Active mecobalamin 1 mg sublingual tablet (15 sources) Start: 12-06-2022 Mecobalamin (V itamin B12) 1,000 mcg tablet,disintegrating Active 1000 ug SL AT BEDTIME December 06, 2022 12:00am SUPPLEMENT place tablet under tongue and allow to dissolve for at least30 secs before swallowing Start: 12-06-2022 Mecobalamin (V itamin B12) Active 1000 MCG SL DAILY December 06, 2022 12:00am place tablet under tongue and allow to dissolve for at least30 secs before swallowing miconazole nitrate 20 mg/ml vaginal cream (20 sources) Azole Antifungal Start: 11-16-2024 miconazole (MONISTAT 7) 2 % vaginal cream Use 1 applicator vaginally daily at bedtime. 45 g 1 11/16/2024 Active mometasone furoate 0.05 mg/actuat metered dose nasal spray (20 sources) Corticosteroid Start: 08-15-2022 take 1 spray(s) nasal route once daily Mometasone Active 2 SPRAY INTRANASAL DAILY August 15, 2022 1:00am administer into each nostril Start: 09-04-2021 take 2 spray(s) by m outh once daily mometasone (NASONEX) 50 mcg/actuation nasal spray Use 2 Sprays in the nose once daily. Rinse mouth after use. 17 g 5 09/04/2021 Active Start: 05-05-2019 End: 09-03-2021 take 2 spray(s) by mouth once daily mometasone (NASONEX) 50 mcg/actuation nasal spray Use 2 Sprays in the nose once daily. Rinse mouth after use. 1 Bottle 11 05/05/2019 09/03/2021 Discontinued 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: Use 2 Sprays in the nose once daily. Rinse mouth after use. Multivitamin preparation (4 sources) Start: 08-31-2021 Multivitamin Dose = 1 tab(s), Oral, qDayM, 0 Refill(s) Start Date: 08/31/21 Status: Ordered nirmatrelvir tablet 300 mg (150 mg x 2) and ritonavir tablet 100 mg in a dose pack (PAXLOVID) (1 source) Start: 05-17-2022 End: 05-22-2022 nirmatrelvir tablet 300 mg (150 mg x 2) and ritonavir tablet 100 mg in a dose pack (PAXLOVID) Administer TWO pink nirmatrelvir 150 mg tablets and ONE white ritonavir 100 mg tablet for a total of three tablets twice daily. 30 tablet 0 05/17/2022 05/22/2022 Active 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: Administer TWO pink nirmatrelvir 150 mg tablets and ONE white ritonavir 100 mg tablet for a total of three tablets twice daily. nystatin 100 unt/mg topical powder (20 sources) Polyene Antifungal Start: 11-09-2024 nystatin (MYCOSTATIN) powder APPLY TO AFFECTED AREA. 30 g 1 11/09/2024 Active Start: 11-15-2023 End: 11-22-2023 take 1 mL by mouth three times daily Nystatin 100,000 unit/mL suspension Discontinued 1 mL PO THREE TIMES A DAY 21 7 0 November 15, 2023 12:00am November 21, 2023 12:00am November 22, 2023 12:06am swish and swallow OLANZapine 5 mg oral tablet (3 sources) Atypical Antipsychotic Start: 10-12-2024 End: 10-16-2024 take 1 tablet by mouth once daily at bedtime OLANZapine (ZYPREXA) 5 mg tablet Take 1 tablet by mouth daily at bedtime. 30 tablet 2 10/12/2024 10/16/2024 Discontinued pantoprazole 40 mg delayed release oral tablet (20 sources) Proton Pump Inhibitor Start: 11-07-2022 End: 01-25-2025 take 1 tablet by mouth once daily pantoprazole DR (PROTONIX) 40 mg tablet Take 40 mg by mouth once daily. 12/05/2022 Active 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: Take 40 mg by mouth once daily. potassium chloride 10 meq extended release oral tablet (20 sources) Start: 10-19-2024 End: 01-14-2025 take 1 tablet by mouth twice daily potassium chloride (K-TAB) 10 mEq tablet Take 1 tablet by mouth two times a day. 60 tablet 2 10/19/2024 Active predniSONE 5 mg oral tablet (20 sources) Start: 12-01-2024 take 1 tablet by mouth once daily predniSONE (DELTASONE) 5 mg tablet Take 1 tablet by mouth once daily. 21 tablet 12/01/2024 Active Start: 04-09-2019 End: 07-13-2022 take 1 tablet by mouth once daily Prednisone 50 mg tablet Discontinued 50 mg PO DAILY April 09, 2019 12:00am July 13, 2022 10:09am Start: 05-03-2018 End: 07-13-2022 take 2 tablets by mouth once daily, then take 1 tablet by mouth once daily, then take 0.5 tablet by mouth once daily Prednisone 20 mg tablet Discontinued 20 mg PO DAILY 12 May 03, 2018 12:00am July 13, 2022 10:09am 2 pills daily x 3 days, then 1 pill daily x 4 days, then 1/2 pill daily x 4 days. pregabalin 150 mg oral capsule (20 sources) Start: 07-05-2022 take 150 mg by mouth once daily Pregabalin Active 150 MG PO DAILY July 05, 2022 1:00am Start: 06-12-2022 End: 05-21-2023 take 1 capsule by mouth twice daily pregabalin (LYRICA) 150 mg capsule Indications: Radiculopathy, lumbar region Take 1 capsule by mouth twice daily for 180 days. 60 capsule 5 06/12/2022 05/21/2023 Discontinued Start: 12-23-2020 End: 06-04-2022 take 1 capsule by mouth twice daily pregabalin (LYRICA) 150 mg capsule Indications: Radiculopathy, lumbar region Take 1 capsule by mouth twice daily for 180 days. 60 capsule 5 12/06/2021 06/04/2022 Active 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: Take 1 capsule by [facility] twice daily for 180 days. Take 1 capsule by [facility] twice daily for 90 days. prochlorperazine 10 mg oral tablet (20 sources) Phenothiazine Start: End: take 1 tablet by mouth every six hours as needed prochlorperazine (COMPAZINE) 10 mg tablet Take 1 tablet by mouth every 6 hours as needed. 30 tablet 11/30/2024 Active promethazine hydrochloride 25 mg oral tablet (20 sources) Phenothiazine Start: 020 End: take 1 tablet by mouth every six hours as needed for nausea Promethazine 25 mg tablet Active 25 mg PO EVERY 6 HOURS NEEDED as needed for Nausea 30 February 02, 2025 11:37am 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: Take 1 tablet by [facility] every 6 hours as needed for nausea/vomiting. silver sulfADIAZINE 10 mg/ml topical cream (20 sources) Sulfonamide Antibacterial Start: 025 End: SSD 1 % cream APPLY TO AFFECTED AREA TWICE DAILY 50 g 11/16/2024 Active vitamin b12 1 mg oral tablet (20 sources) Vitamin B12 Start: take 1 tablet by mouth once daily VITAMIN B-12 1,000 mcg tab DISSOLVE 1 TABLET BY MOUTH ONCE DAILY 11/24/2022 Active 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: DISSOLVE 1 TABLET BY MOUTH ONCE DAILY Completed/Discontinued Medications Medication Drug Class(es) Dates Sig (Normalized) Sig (Original) abatacept 750 mg in NaCl 0.9% 100 mL (ORENCIA) (10 sources) Start: 02-18-2025 End: 02-18-2025 750 mg, INTRAVENOUS, at 200 mL/hr, Administer over 30 Minutes, ONCE, 1 dose, On Sat02/18/25 at 1300, TOTAL VOLUME - Expires: 02/19/25 @ 1300 Administer with 0.2 micron filter. Start: 02-05-2025 End: 02-05-2025 750 mg, INTRAVENOUS, at 200 mL/hr, Administer over 30 Minutes, ONCE, 1 dose, On Sat02/05/25 at 1100, TOTAL VOLUME - Expires: 02/06/25 @ 1045 Administer with 0.2 micron filter. Start: 01-07-2025 End: 01-07-2025 750 mg, INTRAVENOUS, at 200 mL/hr, Administer over 30 Minutes, ONCE, 1 dose, On [place] 01/07/25 at 1030, TOTAL VOLUME - Expires: 01/08/25 @ 1030 Administer with 0.2 micron filter. Start: 06-18-2024 End: 06-18-2024 750 mg, INTRAVENOUS, at 200 mL/hr, Administer over 30 Minutes, ONCE, 1 dose, On [place] 06/18/24 at 1000, Dose for patients weighing greater than or equal to 60 kg and less than or equal to 100 kg is equal to 750 mg. Total Volume: 100 mL Administer with 0.2 micron filter. Start: 05-21-2024 End: 05-21-2024 750 mg, INTRAVENOUS, at 200 mL/hr, Administer over 30 Minutes, ONCE, 1 dose, On [place] 05/21/24 at 1330, Dose for patients weighing greater than or equal to 60 kg and less than or equal to 100 kg is equal to 750 mg. Total Volume: 100 mL Administer with 0.2 micron filter. Start: 04-01-2024 End: 04-01-2024 750 mg, INTRAVENOUS, at 200 mL/hr, Administer over 30 Minutes, ONCE, 1 dose, On Sat04/01/24 at 1400, Dose for patients weighing greater than or equal to 60 kg and less than or equal to 100 kg is equal to 750 mg. Total Volume: 100 mL Administer with 0.2 micron filter. Start: 02-26-2024 End: 02-26-2024 abatacept 750 mg in NaCl 0.9 % 100 mL (ORENCIA) Start: 01-29-2024 End: 01-29-2024 abatacept 750 mg in NaCl 0.9 % 100 mL (ORENCIA) Start: 12-31-2023 End: 12-31-2023 abatacept 750 mg in NaCl 0.9 % 100 mL (ORENCIA) Start: 11-20-2023 End: 11-20-2023 abatacept 750 mg in NaCl 0.9 % 100 mL (ORENCIA) acetaminophen 500 mg oral tablet (20 sources) Start: 01-07-2025 End: 01-07-2025 take 1 dose by mouth once, then take 4000 mg by mouth once daily 1,000 mg, ORAL, ONCE, 1 dose, On [place] 01/07/25 at 1030, No more than 4000 mg of acetaminophen should be given per day (FROM ALL SOURCES) Start: 01-24-2023 End: 11-15-2023 take 2 tablets by mouth every six hours as needed for pain Acetaminophen 500 mg tablet Active 1000 mg PO EVERY 6 HOURS as needed for fever or pain November 15, 2023 7:29am Start: 01-24-2023 take 1000 mg by mout h every six hours Acetaminophen Active 1000 MG PO EVERY 6 HOURS 100 January 24, 2023 12:00am Start: 07-12-2017 acetaminophen (TYLENOL) 325 mg tablet Take by mouth every 6 hours as needed. 07/12/2017 Active Start: 07-12-2017 End: 01-30-2023 Acetaminophen (Tylenol) 325 mg tablet Discontinued 500 mg PO EVERY 6 HOURS as needed for Pain July 12, 2017 1:00am January 30, 2023 1:31pm Start: 10-07-2015 Tylenol Extra Strength 500 mg oral tablet Dose : 500 mg = 1 tab(s), Oral, q4h, PRN as needed for pain, # 60 tab(s), 0 Refill(s) Start Date: 10/07/15 Status: Ordered 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: Take by mouth every 6 hours as needed. 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 Start: 08-29-2021 End: 09-05-2021 [place] 325- 5 mg oral tablet Dose = 1 tab(s), Oral, q4h, PRN for pain, May take 1-2 tablets / dose, X 7 day(s), # 28 tab(s), 0 Refill(s), Displaced fracture of left femoral neck, 97 Start Date: 08/29/21 Stop Date: 09/05/21 Status: Ordered acetaminophen 325 mg / oxyCODONE hydrochloride 5 mg oral tablet (20 sources) Opioid Agonist Start: 09-03-2024 End: 09-15-2024 Oxycodone-Acetaminophen (Percocet) 5-325 mg tablet Discontinued 1 {tbl} PO Q8H as needed for pain 14 3 0 September 03, 2024 September 15, 2024 2:23pm Perirectal abscess Mass of anus Rectal abscess Other specified diseases of anus and rectum Start: 09-03-2024 End: 01-14-2025 Oxycodone-Acetaminophen (Per cocet) 5-325 mg tablet Discontinued 1 {tbl} PO EVERY 6 HOURS as needed for pain 12 3 0 October 30, 2024 January 14, 2025 8:25am Contusion of hip and thigh Contusion of unspecified hip, initial encounter Contusion of unspecified thigh, initial encounter Start: 12-13-2023 End: 03-17-2024 Oxycodone-Acetaminophen (Per cocet) 5-325 mg tablet Discontinued 1 {tbl} PO Q8H as needed for pain 10 3 0 December 13, 2023 March 17, 2024 8:49am History of fracture of rib Personal history of (healed) traumatic fracture Start: 03-22-2018 End: 08-15-2022 Oxycodone-Acetaminophen 1 TA BLET tablet Discontinued 1 {tbl} PO EVERY 6 HOURS NEEDED as needed for Pain 12 3 0 March 22, 2018 12:00am August 15, 2022 11:27am Contusion of rib on left side Contusion of left front wall of thorax, initial encounter Start: 03-22-2018 End: 08-15-2022 take 1 tablet by mouth every six hours as needed Oxycodone-Acetaminophen Discontinued 1 TABLET PO EVERY 6 HOURS NEEDED 12 3 March 22, 2018 12:00am August 15, 2022 11:27am 0.8 ml adalimumab 50 mg/ml auto-injector (20 sources) Tumor Necrosis Factor Soledad Start: 03-22-2018 End: 07-05-2022 Adalimumab 40 pen injector kit Discontinued 1 INJECTABLE SQ EVERY WEEK March 22, 2018 12:00am July 05, 2022 9:07am Start: 03-22-2018 End: 07-05-2022 Adalimumab Discontinued 1 IN JECTABLE SQ EVERY WEEK March 22, 2018 12:00am July 05, 2022 9:07am ALPRAZolam 1 mg oral tablet (20 sources) Benzodiazepine Start: 04-01-2024 End: 12-02-2024 take 1 tablet by mouth three times daily Alprazolam 1 mg tablet Discontinued 1 mg PO THREE TIMES A DAY 90 30 2 August 31, 2024 3:16pm December 02, 2024 1:08pm Start: 03-10-2024 End: 04-01-2024 take 1 tablet by mouth twice daily as needed for sleep and diarrhea Alprazolam 1 mg tablet Discontinued 1 mg PO TWICE A DAY as needed for sleep and diarrhea 40 0 March 10, 2024 12:00am April 01, 2024 2:39pm amoxicillin 500 mg oral capsule (20 sources) Penicillin-class Antibacterial Start: 07-30-2018 End: 08-09-2018 take 2 capsules by mouth twice daily Amoxicillin 500 mg capsule Discontinued 1000 mg PO TWICE A DAY 40 10 0 July 30, 2018 1:00am August 08, 2018 1:00am August 09, 2018 1:09am Start: 07-30-2018 End: 08-09-2018 take 1000 mg by mouth twice daily Amoxicillin Discontinued 1000 MG PO TWICE A DAY 40 July 30, 2018 1:00am August 09, 2018 1:09am amoxicillin 875 mg / clavulanate 125 mg oral tablet (20 sources) Penicillin-class Antibacterial Start: 03-31-2021 End: 04-10-2021 Amoxicillin-Pot Clavulanate (Augmentin) 875-125 mg tablet Discontinued 1 {tbl} PO Q12H 20 10 March 31, 2021 12:00am April 09, 2021 12:00am April 10, 2021 12:01am Acute sinusitis, unspecified Start: 01-11-2021 End: 07-13-2022 Amoxicillin-Pot Clavulanate 875-125 mg tablet Discontinued 1 {tbl} PO TWICE A DAY 20 January 11, 2021 12:00am July 13, 2022 10:07am Start: 01-11-2021 End: 07-13-2022 take 1 tablet by mouth twice daily Amoxicillin-Pot Clavulanate Discontinued 1 TABLET PO TWICE A DAY January 11, 2021 12:00am July 13, 2022 10:07am Start: 09-18-2018 End: 10-24-2018 Amoxicillin-Pot Clavulanate 875-125 mg tablet Discontinued 1 {tbl} PO TWICE A DAY 20 September 18, 2018 1:00am October 24, 2018 11:11am Start: 09-18-2018 End: 10-24-2018 take 1 tablet by mouth twice daily Amoxicillin-Pot Clavulanate Discontinued 1 TABLET PO TWICE A DAY September 18, 2018 1:00am October 24, 2018 11:11am Start: 05-03-2018 End: 05-13-2018 Amoxicillin-Pot Clavulanate 875-125 mg tablet Discontinued 1 {tbl} PO Q12H 20 10 May 03, 2018 12:00am May 12, 2018 12:00am May 13, 2018 12:08am Start: 05-03-2018 End: 05-13-2018 take 1 tablet by mouth every twelve hours Amoxicillin-Pot Clavulanate Discontinued 1 TABLET PO Q12H 20 May 03, 2018 12:00am May 13, 2018 12:08am Start: 08-02-2017 End: 08-12-2017 Amoxicillin-Pot Clavulanate (Augmentin) 875-125 mg tablet Discontinued 1 {tbl} PO Q12H 20 10 0 August 02, 2017 1:00am August 11, 2017 1:00am August 12, 2017 1:06am Acute sinusitis, unspecified Start: 07-12-2017 End: 07-22-2017 Amoxicillin-Pot Clavulanate (Augmentin) 875-125 mg tablet Discontinued 1 {tbl} PO Q12H 20 10 0 July 12, 2017 1:00am July 21, 2017 1:00am July 22, 2017 1:05am Acute sinusitis, unspecified amylase [id number] unt / lipase [id number] unt / protease [id number] unt delayed release oral capsule (20 sources) Start: 09-25-2023 End: 02-02-2025 Onxruy-Itxglldc-Ccwgqmo (Cre on) 36,000-114,000- 180,000 unit capsule,delayed release(DR/EC) Discontinued 0 PO .COMPLEX 300 January 25, 2025 4:25pm February 02, 2025 11:29am take 1-2 with snacks and 2-3 with meals take 1-3 capsules by mouth at bedtime pcwjca-pagbbahh-osafmjl (CREON 36) 36,000-114,000- 180,000 unit delayed release capsule Take 1-3 capsules by mouth with meals and at bedtime. With snacks also Active aspirin 81 mg oral tablet (20 sources) Platelet Aggregation Inhibitor, Nonsteroidal Anti-inflammatory Drug End: 05-21-2023 aspirin 81 mg cap Take by mouth. 0 05/21/2023 Discontinued 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: Take by mouth. azithromycin 250 mg oral tablet (20 sources) Macrolide Antimicrobial Start: 06-02-2021 End: 08-15-2022 take 2-5 tablets by mouth once daily Azithromycin 250 mg tablet Discontinued 0 PO .COMPLEX 6 0 July 13, 2022 1:00am August 15, 2022 11:25am take 500 mg today (day 1), then 250 mg for 4 days (days 2-5) PO benzonatate 100 mg oral capsule (20 sources) Non-narcotic Antitussive Start: 07-13-2022 End: 08-15-2022 take 2 capsules by mouth three times daily as needed for cough Benzonatate 100 mg capsule Discontinued 200 mg PO THREE TIMES A DAY as needed for cough 30 0 July 13, 2022 1:00am August 15, 2022 11:26am Start: 07-13-2022 End: 08-15-2022 take 200 mg by mouth three times daily Benzonatate Discontinued 200 MG PO THREE TIMES A DAY 30 July 13, 2022 1:00am August 15, 2022 11:26am Start: 05-17-2022 End: 06-26-2022 take 1 capsule by mouth every eight hours as needed benzonatate (TESSALON PERLE) 100 mg capsule Take 1 capsule by mouth three times daily as needed for cough. 15 capsule 0 05/17/2022 06/26/2022 Discontinued 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: Take 1 capsule by mo ut three times daily as needed for cough. bifidobacterium infantis 4 mg oral capsule (2 sources) Star t: 10-27 End: 04-29 take 1 capsule by mouth once daily Bifidobacterium Infantis (ALIGN) 4 mg cap Take 1 capsule by mouth once daily. 30 capsule 2 11/11/2020 05/19/2021 Discontinued (Course of therapy completed) 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: Take 1 capsule by [facility] once daily. carboxymethylcellulose 0.01 mg/mg ophthalmic gel (20 sources) Star t: 10-27 18 End: 03-17 Carboxymethylcellulose Sodium 15 ML drops, liquid gel Discontinued 1 APPLICATIO OP AT BEDTIME November 13, 2017 12:00am July 05, 2022 9:07am DRY EYES cephalexin 500 mg oral capsule (13 sources) Cephalosporin Antibacterial Star t: 12-28 23 End: 04-17 23 take 1 capsule by mouth three times daily Cephalexin 500 mg capsule Discontinued 500 mg PO THREE TIMES A DAY 21 0 January 24, 2023 12:00am March 06, 2023 3:28pm clopidogrel 75 mg oral tablet (20 sources) P2Y12 Platelet Inhibitor Star t: 02-26 15 End: 09-27 take 1 tablet by mouth at bedtime Clopidogrel 75 MG tablet Discontinued 75 mg PO AT BEDTIME March 13, 2015 12:00am October 24, 2024 10:22pm BLOOD THINNER 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: Take 75 mg by mouth once daily. clotrimazole 0.01 mg/mg topical ointment (20 sources) Azole Antifungal Star t: 07-30 End: 08-29 Clotrimazole 1 % ointment Discontinued 1 NMA TOPICAL TWICE A DAY 56.7 28 0 August 18, 2021 1:00am September 14, 2021 1:00am September 15, 2021 1:03am colestipol hydrochloride 1000 mg oral tablet (20 sources) Bile Acid Sequestrant Star t: 09-27 End: 10-27 Colestipol 1 gram tablet Discontinued 1 g PO NEEDED as needed for Diarrhea November 05, 2022 9:49am November 15, 2023 7:30am On Hold: Ordered avoid other meds one hour before and 4 hours after Start: 10-17-2022 End: 11-05-2022 Colestipol 1 gram tablet Dis continued 1 g PO DAILY 30 2 October 17, 2022 12:00am November 05, 2022 9:50am avoid other meds one hour before and 4 hours after cyclobenzaprine hydrochloride 10 mg oral tablet (20 sources) Muscle Relaxant Start: 10-07-2015 End: 07-05-2022 take 1 tablet by mouth at bedtime Cyclobenzaprine 10 MG tablet Discontinued 10 mg PO AT BEDTIME March 22, 2018 12:00am July 05, 2022 9:07am Start: 03-13-2015 End: 07-12-2017 take 2 tablets by mouth at bedtime as needed for pain Cyclobenzaprine 10 MG tablet Discontinued 20 mg PO AT BEDTIME NEEDED as needed for muscle spasm/pain March 13, 2015 12:00am July 12, 2017 2:26pm Start: 03-13-2015 End: 07-12-2017 take 20 mg by mouth at bedtime as needed Cyclobenzaprine Discontinued 20 MG PO AT BEDTIME NEEDED March 13, 2015 12:00am July 12, 2017 2:26pm 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: Take 1 tablet by brielle th twice daily as needed. take 1 tablet by brielle th twice a day if needed 1 ml dexamethasone phosphate 10 mg/ml injection (2 sources) Corticosteroid Start: 10-16-2024 End: 10-16-2024 8 mg, INTRAVENOUS, ONCE, 1 dose, On 3/21/25 at 1000, Administer over 5 minutes. Start: 10-13-2024 End: 10-13-2024 8 mg, INTRAVENOUS, ONCE, 1 d ose, On Sat10/13/24 at 1030, Administer over 5 minutes. diazePAM 2 mg oral tablet (20 sources) Benzodiazepine Start: 12-14-2015 End: 07-12-2017 take 2 tablets by mouth four times daily as needed Diazepam 2 MG tablet Discontinued 4 mg PO 4 TIMES DAILY NEEDED as needed for Vertigo 12 December 14, 2015 12:00am July 12, 2017 2:24pm Start: 12-14-2015 End: 07-12-2017 take 4 mg by mouth four times daily as needed Diazepam Discontinued 4 MG PO 4 TIMES DAILY NEEDED December 14, 2015 12:00am July 12, 2017 2:24pm dicyclomine hydrochloride 10 mg oral capsule (20 sources) Anticholinergic Start: 12-27-2023 End: 01-25-2025 take 1 capsule by mouth three times daily as needed for pain Dicyclomine 10 mg capsule Discontinued 10 mg PO THREE TIMES A DAY as needed for for abdominal pain 90 3 September 17, 2024 8:35am January 25, 2025 4:25pm Start: 11-06-2023 End: 12-27-2023 take 1 tablet by mouth twice daily Dicyclomine 20 mg tablet Discontinued 20 mg PO TWICE A DAY 180 90 0 November 06, 2023 1:41pm February 03, 2024 12:00am December 27, 2023 1:16pm IBS Start: 11-21-2022 take 10 mg by mouth three times daily dicyclomine (BENTYL) 20 mg tablet Take 10 mg by mouth three times a day. 11/21/2022 Active Start: 11-21-2022 End: 10-22-2023 take 1 tablet by mouth twice daily Dicyclomine 20 mg tablet Discontinued 20 mg PO TWICE A DAY 180 90 0 July 24, 2023 12:39pm October 21, 2023 12:00am October 22, 2023 12:05am IBS Start: 10-05-2022 End: 10-17-2022 take 1 tablet by mouth twice daily Dicyclomine 20 mg tablet Discontinued 20 mg PO TWICE A DAY 30 0 October 05, 2022 1:00am October 17, 2022 2:35pm 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: Take 20 mg by mouth twice daily. diphenhydrAMINE hydrochloride 2.5 mg/ml oral solution (20 sources) Histamine-1 Receptor Antagonist Start: 10-25-19 End: 02-03-20 take 25 mg by mouth every four hours as needed Diphenhydramine Hcl 12.5 mg/5 mL liquid Discontinued 25 mg PO EVERY 4 HOURS NEEDED as needed for mouth irritation October 24, 2024 12:00am February 02, 2025 11:10am On Hold: sores healed Start: 10-07-2015 End: 06-26-2022 Benadryl 25 mg oral tablet D ose : 25 mg = 1 tab(s), Oral, TID, PRN for allergy symptoms, # 30 tab(s), 0 Refill(s) Start Date: 10/07/15 Status: Ordered 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: Take 25 mg by mouth daily at bedtime. erythromycin 0.005 mg/mg ophthalmic ointment (20 sources) Macrolide, Macrolide Antimicrobial Start: 05-03-2018 End: 07-13-2022 Erythromycin 5 mg/gram (0.5 %) ointment Discontinued 1 NMA OPHTHALMIC THREE TIMES A DAY 1 May 03, 2018 12:00am July 13, 2022 10:07am apply 1 cm ribbon to both eyes every 8 hours x 7 days. Start: 05-03-2018 End: 07-13-2022 Erythromycin Discontinued 1 APPLIC OPHTHALMIC THREE TIMES A DAY May 03, 2018 12:00am July 13, 2022 10:07am apply 1 cm ribbon to both eyes every 8 hours x 7 days. famotidine 20 mg oral tablet (20 sources) Histamine-2 Receptor Antagonist Start: 01-24-2020 End: 08-15-2022 take 1 tablet by mouth twice daily Famotidine 20 MG tablet Discontinued 20 mg PO TWICE A DAY 28 0 January 24, 2020 12:00am August 15, 2022 11:26am fluconazole 150 mg oral tablet (8 sources) Azole Antifungal Start: 09-25-2024 End: 10-02-2024 Fluconazole 150 mg tablet Discontinued 150 mg PO Every 3 Days 3 0 September 25, 2024 1:00am October 02, 2024 10:58am fluorouracil (ADRUCIL) 7,920 mg 158.4 mL in empty bag (1 source) Start: 10-05-2024 End: 10-05-2024 7,920 mg (4,000 mg/m2 1.98 m2 Treatment Plan BSA from Recorded weight), INTRAVENOUS, at 1.7 mL/hr, Administer over 96 Hours, ONCE, 1 dose, On Sat10/05/24 at 1030, Expires: 10/09/24 @ 1100 (room temp) Hazardous Chemotherapy Drug: Use appropriate PPE. Protect from Light. fluorouracil (ADRUCIL) 7,920 mg in NaCl 0.9% 192 mL in empty bag (1 source) Start: 11-02-2024 End: 11-02-2024 7,920 mg (4,000 mg/m2 1.98 m2 Treatment Plan BSA from Recorded weight), INTRAVENOUS, at 2 mL/hr, Administer over 96 Hours, ONCE, 1 dose, On Sat11/02/24 at 1030, exp 0900 11/12/24 (refrigerated) Hazardous Chemotherapy Drug: Use appropriate PPE. Protect from Light. 120 actuat fluticasone propionate 0.11 mg/actuat metered dose inhaler (20 sources) Corticosteroid Start: 03-13-2015 End: 07-12-2017 Fluticasone Propionate 1 INHALER inhaler Discontinued 1 NMA INHALATION TWICE A DAY March 13, 2015 12:00am July 12, 2017 2:25pm Start: 03-13-2015 End: 07-12-2017 take 1 puff(s) by inhalation twice daily Fluticasone Propionate Discontinued 1 PUFF INHALATION TWICE A DAY March 13, 2015 12:00am July 12, 2017 2:25pm End: 10-16-2024 Fluticasone Propionate (CUTI VATE) 0.05 % cream Apply to affected area two times a day. 10/16/2024 Discontinued 60 actuat formoterol fumarate 0.005 mg/actuat / mometasone furoate 0.1 mg/actuat metered dose inhaler (20 sources) Corticosteroid, beta2-Adrenergic Agonist Start: 07-18-2021 End: 05-17-2022 take 2 puff(s) by inhalation twice daily mometasone-formoterol (DULERA) 100-5 mcg/actuation inhaler Indications: COPD, mild (HCC) Inhale 2 Puffs as instructed twice daily. 13 g 1 07/18/2021 05/17/2022 Discontinued (Discontinued by Patient) Start: 07-12-2017 End: 07-05-2022 Mometasone-Formoterol (Duler a) 100-5 mcg/actuation HFA aerosol inhaler Discontinued 2 NMA INHALATION TWICE A DAY July 12, 2017 1:00am July 05, 2022 9:07am COPD Start: 07-12-2017 End: 07-05-2022 take 1 puff(s) by inhalation twice daily Mometasone-Formoterol (Dulera) 100-5 mcg/actuation HFA aerosol inhaler Discontinued 2 PUFF INHALATION TWICE A DAY July 12, 2017 1:00am July 05, 2022 9:07am 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: Inhale 2 Puffs as in structed twice daily. gabapentin 600 mg oral tablet (20 sources) Anti-epileptic Agent Start: 015 End: take 1 tablet by mouth three times daily Gabapentin 600 MG tablet Discontinued 600 mg PO THREE TIMES A DAY March 13, 2015 12:00am July 05, 2022 9:07am NEUROPATHY hydrocortisone 25 mg/ml topical cream (20 sources) Corticosteroid Start: 024 End: 025 Hydrocortisone 2.5 % cream with perineal applicator Discontinued 1 NMA RC TWICE A DAY as needed for Crohn's disease 27 08November 29, 2023 12:00am October 24, 2024 10:26pm Start: 06-26-2022 End: 09-24-2022 hydrocortisone 2.5 % cream I ndications: Rash and nonspecific skin eruption Apply 1 application to affected area twice daily. 20 g 1 06/26/2022 09/24/2022 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: Apply 1 application to affected area twice daily. Hydrocortisone Acetate 25 mg suppository (8 sources) Start: 11-15-2023 End: 11-29-2023 Hydrocortisone Acetate 25 mg suppository Discontinued 25 mg RC TWICE A DAY 24 18 09November 15, 2023 12:00am November 29, 2023 1:29pm Start: 11-15-2023 End: 11-29-2023 Hydrocortisone Acetate 25 mg suppository Discontinued 25 mg RC TWICE A DAY November 15, 2023 12:00am November 29, 2023 1:29pm hyoscyamine sulfate 0.125 mg oral tablet (20 sources) Start: 09-19-2022 End: 10-05-2022 Hyoscyamine Sulfate 0.125 mg tablet Discontinued 0.125 mg PO 2 to 4 times per day as needed for nausea 60 0 September 19, 2022 1:00am October 05, 2022 4:13pm Start: 07-05-2022 End: 08-15-2022 Hyoscyamine Sulfate 0.125 mg tablet Discontinued 0.125 mg PO 2 to 4 times per day as needed July 05, 2022 1:00am August 15, 2022 11:26am Start: 11-22-2020 End: 05-15-2024 take 1 tablet by mouth every six hours as needed hyoscyamine (LEVSIN) 0.125 mg tablet Take 1 tablet by mouth every 6 hours as needed. 90 tablet 2 11/22/2020 05/15/2024 Discontinued 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: Take 1 tablet by [facility] every 6 hours as needed. 10 ml iron sucrose 20 mg/ml injection (3 sources) Parenteral Iron Replacement Start: 07-02-2024 End: 07-02-2024 200 mg, INTRAVENOUS, ONCE, 1 dose, On [place] 07/02/24 at 0900, Please conduct a 30 minute post dose observation. Start: 06-24-2024 End: 06-24-2024 200 mg, INTRAVENOUS, ONCE, 1 dose, On Sat06/24/24 at 0930, Please conduct a 30 minute post dose observation. Start: 06-18-2024 End: 06-18-2024 200 mg, INTRAVENOUS, ONCE, 1 dose, On [place] 06/18/24 at 1000, Please conduct a 30 minute post dose observation. loperamide hydrochloride 2 mg oral capsule (3 sources) Opioid Agonist Start: 01-14-2025 End: 02-02-2025 take 1 capsule by mouth every six hours as needed Loperamide (Imodium A-D) 2 mg capsule Discontinued 2 mg PO EVERY 6 HOURS as needed for loose stool 360 January 14, 2025 12:00am February 02, 2025 11:31am LORazepam 1 mg oral tablet (11 sources) Benzodiazepine Start: 07-24-2023 End: 11-15-2023 take 1 tablet by mouth once daily as needed for anxiety Lorazepam (Ativan) 1 mg tablet Discontinued 1 mg PO DAILY as needed for anxiety 3 0 July 24, 2023 1:00am November 15, 2023 7:31am lubiprostone 0.008 mg oral capsule (16 sources) Chloride Channel Activator Start: 12-27-2023 End: 09-02-2024 take 1 capsule by mouth twice daily as needed for constipation Lubiprostone 8 mcg capsule Discontinued 8 ug PO TWICE A DAY as needed for for constipation 60 3 January 26, 2024 2:03pm September 02, 2024 4:50pm methylPREDNISolone 4 mg oral tablet (20 sources) Corticosteroid Start: 09-02-2024 End: 10-24-2024 Methylprednisolone 4 mg tablets,dose pack Discontinued PO DIRECTED September 02, 2024 1:00am October 24, 2024 10:25pm On Hold: MD Ordonez Start: 10-24-2018 End: 10-29-2018 take 1 tablet by mouth once Methylprednisolone (Medrol (Kofi)) 4 mg tablets,dose pack Discontinued 4 mg PO per package directions 21 5 0 October 24, 2018 12:00am October 28, 2018 12:00am October 29, 2018 12:08am Acute sinusitis, unspecified Start: 08-02-2017 End: 08-07-2017 take 1 tablet by mouth once Methylprednisolone (Medrol (Kofi)) 4 mg tablets,dose pack Discontinued 4 mg PO per package directions 21 5 0 August 02, 2017 1:00am August 06, 2017 1:00am August 07, 2017 1:05am mitoMYcin 19.8 mg syringe (MUTAMYCIN) (1 source) Start: 10-05-2024 End: 10-05-2024 19.8 mg (10 mg/m2 (set by rule on 09/16/2024 10:40 AM) 1.98 m2 Treatment Plan BSA from Recorded weight), INTRAVENOUS, ONCE, 1 dose, On 10/05/24 at 1030, - SYRINGE - IV Push over 2-4 minutes. Expires: 10/07/24 @ 1000 (Max dose = 20 mg) Hazardous Chemotherapy Drug: Use appropriate PPE. Antineoplastic Vesicant. Protect from light. omeprazole 40 mg delayed release oral capsule (20 sources) Proton Pump Inhibitor Start: 11-13-2017 End: 07-05-2022 take 1 capsule by mouth once daily Omeprazole 40 MG capsule,delayed release(DR/EC) Discontinued 40 mg PO DAILY November 13, 2017 12:00am July 05, 2022 9:07am GERD 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: Take 1 capsule by [facility] once daily. 2 ml ondansetron 2 mg/ml injection (20 sources) Serotonin-3 Receptor Antagonist Start: 11-02-2024 End: 11-02-2024 8 mg, INTRAVENOUS, ONCE, 1 dose, On Sat11/02/24 at 1000 Start: 10-16-2024 End: 10-16-2024 8 mg, INTRAVENOUS, ONCE, 1 d ose, On Sat10/16/24 at 1000 Start: 10-13-2024 End: 10-13-2024 8 mg, INTRAVENOUS, ONCE, 1 d ose, On Sat10/13/24 at 1030 Start: 10-07-2024 End: 10-07-2024 8 mg, INTRAVENOUS, ONCE, 1 d ose, On Sat10/07/24 at 1000 Start: 10-06-2024 End: 01-14-2025 take 1 tablet by mouth every eight hours as needed for nausea Ondansetron Hcl 8 mg tablet Discontinued 8 mg PO EVERY 8 HOURS NEEDED as needed for nausea/vomiting October 24, 2024 12:00am January 14, 2025 8:35am Start: 10-05-2024 End: 10-05-2024 8 mg, INTRAVENOUS, ONCE, 1 d ose, On Sat10/05/24 at 1000 Start: 10-08-2019 End: 07-13-2022 take 1 tablet by mouth every eight hours as needed for nausea Ondansetron 4 MG tablet Discontinued 4 mg PO EVERY 8 HOURS NEEDED as needed for Nausea October 08, 2019 12:00am July 13, 2022 10:09am Start: 11-13-2017 End: 07-05-2022 take 1 tablet by mouth every six hours as needed for nausea Ondansetron 4 MG tablet Discontinued 4 mg PO EVERY 6 HOURS NEEDED as needed for Nausea November 13, 2017 12:00am July 05, 2022 9:08am 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: Take 1 tablet by [facility] every 6 hours as needed for Nausea/Vomiting. oseltamivir 75 mg oral capsule (20 sources) Neuraminidase Inhibitor Start: 018 End: 018 take 1 capsule by mouth every twelve hours Oseltamivir (Tamiflu) 75 mg capsule Discontinued 75 mg PO Q12H 10 5 0 September 10, 2017 1:00am September 14, 2017 1:00am September 15, 2017 1:08am oxyCODONE hydrochloride 10 mg oral tablet (20 sources) Opioid Agonist Start: 025 End: 025 take 1 tablet by mouth every six hours as needed for pain Oxycodone 10 mg tablet Discontinued 10 mg PO EVERY 6 HOURS as needed for pain 20 5 0 September 25, 2024 October 24, 2024 10:26pm Perirectal cellulitis Squamous cell carcinoma Rectal abscess Start: 02-06-2023 End: 02-13-2023 take 5-10 mg by mouth every six hours as needed for pain Oxycodone 5 mg tablet Discontinued 5 - 10 mg PO EVERY 6 HOURS as needed for Pain Score 6-10/10 56 7 0 February 06, 2023 February 12, 2023 12:00am February 13, 2023 12:04am Other acute postprocedural pain Start: 01-30-2023 End: 02-04-2023 take 5-15 mg by mouth every six hours as needed for pain Oxycodone 5 mg tablet Discontinued 5 - 15 mg PO EVERY 6 HOURS as needed for Pain Score 6-10/10 60 5 0 January 30, 2023 February 03, 2023 12:00am February 04, 2023 12:03am Other acute postprocedural pain Start: 01-24-2023 End: 07-25-2023 take 5-10 mg by mouth every four hours as needed for pain Oxycodone 5 mg Tablet Discontinued 5 - 10 mg PO EVERY 4 HOURS NEEDED as needed for Pain Score 4-10 60 7 0 January 24, 2023 July 25, 2023 1:13pm Other acute postprocedural pain Other acute postprocedural pain polyethylene glycol 3350 84101 mg powder for oral solution (20 sources) Osmotic Laxative Start: 11-13-2022 End: 02-02-2025 Polyethylene Glycol 3350 (Miralax) 17 gram/dose powder Discontinued 4 g PO NEEDED as needed for Constipation January 09, 2023 2:00pm February 02, 2025 11:11am Start: 11-05-2022 End: 11-13-2022 Polyethylene Glycol 3350 (Mi ralax) 17 gram/dose powder Discontinued 238 g PO ONCE 238 0 November 05, 2022 12:00am November 13, 2022 3:47pm follow directions for colonoscopy prep raNITIdine 150 mg oral tablet (20 sources) Histamine-2 Receptor Antagonist Start: 11-13-2017 End: 07-05-2022 take 1 tablet by mouth twice daily Ranitidine Hcl 150 MG tablet Discontinued 150 mg PO TWICE A DAY November 13, 2017 12:00am July 05, 2022 9:09am GERD Refresh PM (4 sources) Start: 10-07-2015 Refresh PM Dose = 1 marlys, Eyes, both, qHS, 0 Refill(s) Start Date: 10/07/15 Status: Ordered rifAXIMin 550 mg oral tablet (9 sources) Rifamycin Antibacterial Start: 09-25-2023 End: 10-09-2023 take 1 tablet by mouth three times daily Rifaximin (Xifaxan) 550 mg tablet Discontinued 550 mg PO THREE TIMES A DAY 42 14 0 September 25, 2023 1:00am October 08, 2023 12:00am October 09, 2023 12:08am rivaroxaban 10 mg oral tablet (4 sources) Factor Xa Inhibitor Start: 08-31-2021 End: 09-26-2021 Xarelto 10 mg oral tablet Dose : 10 mg = 1 tab(s), Oral, qDay, 0 Refill(s), 97 Start Date: 08/31/21 Stop Date: 09/26/21 Status: Ordered simvastatin 40 mg oral tablet (20 sources) HMG-CoA Reductase Inhibitor Start: 03-14-2022 End: 05-15-2024 take 1 tablet by mouth once daily at bedtime simvastatin (ZOCOR) 40 mg tablet Indications: Mixed hyperlipidemia , Hyperlipidemia with target LDL less than 130 Take 1 tablet by mouth daily at bedtime. 90 tablet 3 03/14/2022 05/15/2024 Discontinued Start: 03-13-2021 End: 03-12-2022 take 1 tablet by mouth once daily at bedtime simvastatin (ZOCOR) 40 mg tablet Indications: Mixed hyperlipidemia , Hyperlipidemia with target LDL less than 130 Take 1 tablet by mouth daily at bedtime. 90 tablet 3 03/13/2021 03/12/2022 Discontinued Start: 12-10-2019 End: 03-10-2021 take 1 tablet by mouth once daily at bedtime simvastatin (ZOCOR) 40 mg tablet Indications: Mixed hyperlipidemia , Hyperlipidemia with target LDL less than 130 Take 1 tablet by mouth daily at bedtime. 90 tablet 5 12/10/2019 03/10/2021 Discontinued Start: 03-13-2015 End: 11-15-2023 take 2 tablets by mouth at bedtime Simvastatin 20 MG tablet Discontinued 40 mg PO AT BEDTIME March 13, 2015 12:00am November 15, 2023 7:31am CHOLESTEROL Start: 03-13-2015 take 40 mg by mouth at bedtime Simvastatin Active 40 MG PO AT BEDTIME March 13, 2015 12:00am Start: 03-13-2015 take 20 mg by mouth at bedtime Simvastatin Active 20 MG PO AT BEDTIME March 13, 2015 12:00am 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: Take 1 tablet by brielle th daily at bedtime. 1000 ml sodium chloride 9 mg/ml injection (3 sources) Start: 10-16-2024 End: 10-16-2024 1,000 mL, INTRAVENOUS, at 500 mL/hr, Administer over 2 Hours, ONCE, 1 dose, On Sat10/16/24 at 1000 Start: 10-13-2024 End: 10-13-2024 1,000 mL, INTRAVENOUS, at 50 0 mL/hr, Administer over 2 Hours, ONCE, 1 dose, On Sat10/13/24 at 1030 Start: 10-07-2024 End: 10-07-2024 1,000 mL/hr (rounded to 999 mL/hr), INTRAVENOUS, Administer over 1 Hours, ONCE, 1 dose, On Sat10/07/24 at 1000, Over 2 hours. sucralfate 1000 mg oral tablet (1 source) Aluminum Complex Start: 11-11-2020 End: 02-09-2021 take 1 tablet by mouth twice daily sucralfate (CARAFATE) 1 gram tablet Take 1 tablet by mouth twice daily. 180 tablet 0 11/11/2020 02/09/2021 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: Take 1 tablet by brielle th twice daily. sulfacetamide sodium 100 mg/ml ophthalmic solution (20 sources) Sulfonamide Antibacterial Start: 08-29-2018 End: 09-05-2018 Sulfacetamide Sodium (Bleph-10) 10 % drops Discontinued 1 NMA OPHTHALMIC Q3H 15 7 0 August 29, 2018 1:00am September 04, 2018 1:00am September 05, 2018 1:16am Start: 08-29-2018 End: 09-05-2018 Sulfacetamide Sodium (Bleph- 10) 10 % drops Discontinued 1 DRP OPHTHALMIC Q3H 15 7 August 29, 2018 1:00am September 05, 2018 1:16am sulfamethoxazole 800 mg / trimethoprim 160 mg oral tablet (20 sources) Dihydrofolate Reductase Inhibitor Antibacterial, Sulfonamide Antimicrobial Start: 10-24-2018 End: 10-31-2018 Sulfamethoxazole-Trimethopri m (Bactrim Ds) 800-160 mg tablet Discontinued 1 {tbl} PO Q12H 14 7 0 October 24, 2018 12:00am October 30, 2018 12:00am October 31, 2018 12:10am tobramycin 3 mg/ml ophthalmic solution (20 sources) Aminoglycoside Antibacterial Start: 03-31-2021 End: 07-13-2022 take 0.3 drop(s) into the eye(s) every four hours Tobramycin (Tobrex) 0.3 % drops Discontinued 1 NMA OPHTHALMIC Q4H 5 0 March 31, 2021 12:00am July 13, 2022 10:08am Start: 03-31-2021 End: 07-13-2022 take 0.3 drop(s) into the eye(s) every four hours Tobramycin (Tobrex) 0.3 % drops Discontinued 1 DRP OPHTHALMIC Q4H 5 March 31, 2021 12:00am July 13, 2022 10:08am Start: 09-18-2018 End: 07-13-2022 take 0.3 drop(s) into the eye(s) every two hours Tobramycin 0.3 % drops Discontinued 1 NMA OPHTHALMIC Q2H 5 0 September 18, 2018 1:00am July 13, 2022 10:08am Both eyes while awake for 5 days traMADol hydrochloride 50 mg oral tablet (20 sources) Opioid Agonist Start: 09-02-2024 End: 10-02-2024 take 1 tablet by mouth every six hours as needed for pain Tramadol 50 mg tablet Discontinued 50 mg PO EVERY 6 HOURS NEEDED as needed for pain September 02, 2024 1:00am October 02, 2024 11:00am Start: 03-13-2015 End: 07-12-2017 take 1 tablet by mouth at bedtime Tramadol 50 MG tablet Discontinued 50 mg PO AT BEDTIME March 13, 2015 12:00am July 12, 2017 2:26pm ubidecarenone 30 mg oral capsule (20 sources) Start: 11-13-2017 End: 07-05-2022 Coenzyme Q10 30 MG capsule Discontinued 30 mg PO TWICE A DAY November 13, 2017 12:00am July 05, 2022 9:07am SUPPLEMENT 100 ml zoledronic acid 0.05 mg/ml injection (1 source) Bisphosphonate Start: 01-07-2025 End: 01-07-2025 5 mg, INTRAVENOUS, at 200 mL/hr, Administer over 30 Minutes, ONCE, 1 dose, On [place] 01/07/25 at 1030, Hazardous Potential Reproductive Risk Drug: Use appropriate PPE. Problems Active Problems Problem Classification Problem Date Documented Da te Episodic/Chronic Acute bronchitis (20 sources) Acute bronchitis; Translations: [Acute bronchitis, unspecified] 11-13-2017 Episodic Anxiety disorders (6 sources) Mixed anxiety and depressive disorder; Translations: [Anxiety disorder, unspecified] Chronic Asthma (20 sources) Asthma; Translations: [Unspecified asthma, uncomplicated] Onset: 4 10-07-2015 Chronic Cancer of rectum and anus (20 sources) Malignant tumor of anus; Translations: [Malignant neoplasm of anus, unspecified] Onset: 5 09-15-2024 Chronic Cancer of rectum and anus (4 sources) History of malignant neoplasm of rectum; Translations: [Personal history of other malignant neoplasm of rectum, rectosigmoid junction, and anus] 12-27-2024 Episodic Cardiac dysrhythmias (20 sources) Ventricular premature beats; Translations: [Ventricular premature depolarization] Onset: 5 10-07-2015 Chronic Cataract (20 sources) Bilateral senile combined form cataracts of eyes; Translations: [Combined forms of age-related cataract, bilateral] Onset: 5 Resolved: 6 02-27-2017 Chronic Chronic obstructive pulmonary disease and bronchiectasis (20 sources) Chronic obstructive lung disease; Translations: [Chronic obstructive pulmonary disease, unspecified] Onset: 0 Chronic Complications of surgical procedures or medical care (20 sources) Postgastric surgery syndrome; 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] 09-19-2022 Episodic Conditions associated with dizziness or vertigo (20 sources) Vertigo; Translations: [Dizziness and giddiness] 11-13-2017 Episodic Congestive heart failure; nonhypertensive (20 sources) Diastolic heart failure; Translations: [Unspecified diastolic (congestive) heart failure] Onset: 0 Chronic Deficiency and other anemia (20 sources) Iron deficiency anemia due to blood loss; Translations: [Iron deficiency anemia secondary to blood loss (chronic)] Onset: 5 07-24-2021 Chronic Deficiency and other anemia (20 sources) Iron deficiency anemia; Translations: [Iron deficiency anemia, unspecified] 10-07-2015 Episodic Diseases of mouth; excluding dental (1 source) Inflammatory disease of mucous membrane; Translations: [Other forms of stomatitis] 10-12-2024 Episodic Disorders of lipid metabolism (20 sources) Hyperlipidemia; Translations: [Hyperlipidemia, unspecified] Onset: 4 07-24-2021 Chronic Diverticulosis and diverticulitis (20 sources) Diverticulitis of intestine; Translations: [Diverticulitis of intestine, part unspecified, without perforation or abscess without bleeding] 11-13-2017 Chronic E Codes: Fall (15 sources) Fall; Translations: [Unspecified fall, initial encounter] Episodic Esophageal disorders (20 sources) Gastroesophageal reflux disease; Translations: [Gastroesophageal reflux disease without esophagitis] Onset: 8 10-07-2015 Chronic Essential hypertension (20 sources) Essential hypertension; Translations: [Essential (primary) hypertension] Onset: 7 Chronic Fracture of neck of femur (hip) (1 source) Closed fracture of base of neck of left femur; Translations: [Displaced fracture of base of neck of left femur, subsequent encounter for closed fracture with routine healing] Episodic Immunity disorders (8 sources) Immunosuppression; Translations: [Immunodeficiency, unspecified] 09-02-2024 Chronic Immunizations and screening for infectious disease (20 sources) Contact with or exposure to other viral diseases; Translations: [Exposure to 2019 novel coronavirus] Episodic Inflammation; infection of eye (except that caused by tuberculosis or sexually transmitteddisease) (20 sources) Acute infectious conjunctivitis; Translations: [Unspecified acute conjunctivitis, unspecified eye] 08-29-2018 Episodic Influenza (20 sources) Influenza due to Influenza A virus; Translations: [Influenza due to other identified influenza virus with other respiratory manifestations] 11-13-2017 Episodic Intracranial injury (9 sources) Concussion injury of brain; Translations: [Closed head injury with concussion] 10-19-2023 Episodic Joint disorders and dislocations; trauma-related (20 sources) Derangement of right knee; Translations: [Unspecified internal derangement of right knee] 11-15-2022 Chronic Malaise and fatigue (2 sources) Other malaise and fatigue; Translations: [Post-COVID chronic fatigue] Onset: 4 05-01-2021 Episodic Malignant neoplasm without specification of site (8 sources) Squamous cell carcinoma 10-03-2024 Chronic Mood disorders (20 sources) Depressive disorder; Translations: [Depression] Onset: 4 10-07-2015 Chronic Mycoses (20 sources) Tinea corporis; Translations: [Tinea corporis] 08-18-2021 Episodic Nausea and vomiting (20 sources) Nausea; Translations: [Nausea] 09-19-2022 Episodic Noninfectious gastroenteritis (20 sources) Gastroenteritis; Translations: [Noninfective gastroenteritis and colitis, unspecified] 05-26-2018 Episodic Nonspecific chest pain (15 sources) Chest discomfort; Translations: [Other chest pain] 12-21-2023 Episodic Nutritional deficiencies (20 sources) Vitamin D deficiency; Translations: [Vitamin D deficiency, unspecified] Onset: 6 07-24-2021 Chronic Occlusion or stenosis of precerebral arteries (20 sources) Carotid artery stenosis; Translations: [Occlusion and stenosis of unspecified carotid artery] Onset: 0 07-31-2019 Chronic Osteoarthritis (20 sources) Osteoarthritis of joint of bilateral hands; Translations: [Primary osteoarthritis, right hand] Onset: 7 04-02-2017 Chronic Osteoporosis (20 sources) Osteoporosis; Translations: [Age-related osteoporosis without current pathological fracture] Onset: 6 01-08-2017 Chronic Other aftercare (12 sources) Follow-up status; Translations: [Encounter for other orthopedic aftercare] 02-06-2023 Episodic Other aftercare (2 sources) Encounter for other orthopedic aftercare; Translations: [Unspecified orthopedic aftercare] 04-17-2023 Episodic Other aftercare (1 source) Peripherally inserted central venous catheter in situ; Translations: [Encounter for adjustment and management of vascular access device] 10-19-2024 Episodic Other aftercare (1 source) Radiotherapy follow-up; Translations: [Encounter for follow-up examination after completed treatment for conditions other than malignant neoplasm] 12-07-2024 Episodic Other aftercare (4 sources) Long-term current use of anticoagulant; Translations: [snf (current) use of anticoagulants] 11-07-2024 Episodic Other circulatory disease (1 source) Peripherally inserted central venous catheter in situ 10-19-2024 Chronic Other connective tissue disease (20 sources) History of total knee arthroplasty; Translations: [Presence of unspecified artificial knee joint] 01-24-2023 Chronic 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: 12/2022 Other connective tissue disease (1 source) Presence of unspecified artificial knee joint; Translations: [Knee joint replacement] 01-24-2023 Chronic Other connective tissue disease (4 sources) Bursitis of foot region 10-07-2015 Episodic Other connective tissue disease (4 sources) Fibromyositis 10-07-2015 Episodic Other connective tissue disease (2 sources) Myofascial pain; Translations: [Myalgia, other site] Episodic Other connective tissue disease (18 sources) Pain in right lower limb; Translations: [Pain in right lower leg] 11-14-2022 Episodic Other connective tissue disease (4 sources) Pain in right lower leg; Translations: [Pain in limb] 11-14-2022 Episodic Other connective tissue disease (2 sources) Fibromyalgia; Translations: [Myalgia and myositis, unspecified] 12-17-2022 Episodic Other connective tissue disease (4 sources) Pain in buttock; Translations: [Myalgia, other site] 12-27-2024 Episodic Other diseases of bladder and urethra (1 source) Spasm of bladder; Translations: [Other specified disorders of bladder] 10-30-2024 Chronic Other endocrine disorders (4 sources) Hormone increase; Translations: [Endocrine disorder, unspecified] 10-22-2022 Episodic Other eye disorders (20 sources) Bilateral vitreous floaters; Translations: [Other vitreous opacities, bilateral] Onset: 6 08-25-2015 Chronic Other fractures (9 sources) Fracture of multiple ribs ; Translations: [Multiple fractures of ribs, unspecified side, initial encounter for closed fracture] 10-19-2023 Episodic Other gastrointestinal disorders (20 sources) Malabsorption - iron; Translations: [Intestinal malabsorption, unspecified] Onset: 5 03-18-2015 Chronic Other gastrointestinal disorders (12 sources) Irritable bowel syndrome; Translations: [Irritable bowel syndrome without diarrhea] 04-27-2024 Chronic Other gastrointestinal disorders (7 sources) Irritable bowel syndrome with diarrhea; Translations: [Irritable bowel syndrome with diarrhea] 01-14-2025 Chronic Other gastrointestinal disorders (2 sources) Irritable bowel syndrome with diarrhea; Translations: [Irritable bowel syndrome with diarrhea] Onset: Chronic Other gastrointestinal disorders (20 sources) Diarrhea; Translations: [Diarrhea, unspecified] 09-19-2022 Episodic Other gastrointestinal disorders (15 sources) Diarrhea, unspecified; Translations: [Diarrhea] 09-19-2022 Episodic Other gastrointestinal disorders (12 sources) Dysphagia; Translations: [Dysphagia, unspecified] 03-10-2024 Episodic 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: OCC Other injuries and conditions due to external causes (20 sources) Foreign body in conjunctival sac, left eye, initial encounter; Translations: [Foreign body of left conjunctival sac, initial encounter] 10-08-2019 Episodic Other injuries and conditions due to external causes (8 sources) H/O: fracture; Translations: [Personal history of (healed) traumatic fracture] 12-21-2023 Episodic Other injuries and conditions due to external causes (8 sources) Closed injury of head; Translations: [Unspecified injury of head, initial encounter] 06-14-2024 Episodic Other injuries and conditions due to external causes (2 sources) Contusion of rib; Translations: [Other specified injuries of thorax, initial encounter] 06-14-2024 Episodic Other nervous system disorders (1 source) Chronic pain syndrome; Translations: [Chronic pain syndrome] Onset: 2 Chronic Other nervous system disorders (20 sources) Piriformis syndrome; Translations: [Lesion of sciatic nerve, unspecified lower limb] Onset: 5 09-30-2014 Chronic Other nervous system disorders (13 sources) Acute postoperative pain; Translations: [Other acute postprocedural pain] 01-24-2023 Episodic Other non-epithelial cancer of skin (15 sources) Squamous cell carcinoma of skin of lower extremity; Translations: [Squamous cell carcinoma of skin of other part of trunk] Onset: 5 09-04-2024 Episodic 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: anus Other non-traumatic joint disorders (20 sources) Unstable knee; Translations: [Other instability, right knee] 08-31-2022 Episodic Other non-traumatic joint disorders (20 sources) Pain in right knee; Translations: [Right knee pain] 08-15-2022 Episodic Other non-traumatic joint disorders (7 sources) Other instability, right knee; Translations: [Other joint derangement, not elsewhere classified, lower leg] 08-15-2022 Episodic Other non-traumatic joint disorders (1 source) Multiple joint pain; Translations: [Pain in unspecified joint] Episodic Other non-traumatic joint disorders (1 source) Joint pain Onset: 5 Episodic Other non-traumatic joint disorders (1 source) Pain in left hip; Translations: [Pain in left hip] Onset: 5 Episodic Other nutritional; endocrine; and metabolic disorders (20 sources) Obesity; Translations: [Obesity, unspecified] Onset: 9 07-31-2019 Chronic Other nutritional; endocrine; and metabolic disorders (1 source) Body mass index (BMI) 33.0-33.9, adult; Translations: [Body mass index [BMI] 33.0-33.9, adult] Onset: 4 Chronic Other screening for suspected conditions (not mental disorders or infectious disease) (1 source) Abnormal findings on diagnostic imaging of other specified body structures; Translations: [Abnormal findings on diagnostic imaging of other specified body structures] Onset: 5 Chronic Other skin disorders (2 sources) Eruption; Translations: [Rash and other nonspecific skin eruption] Episodic Other skin disorders (2 sources) Swelling of upper limb; Translations: [Other specified soft tissue disorders] 10-19-2024 Episodic Other upper respiratory infections (20 sources) Acute maxillary sinusitis; Translations: [Acute maxillary sinusitis, unspecified] 01-11-2021 Episodic 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: RESOLVED Pancreatic disorders (not diabetes) (12 sources) Pancreatic insufficiency; Translations: [Other specified diseases of pancreas] 11-15-2023 Episodic Pathological fracture (9 sources) Osteoporosis; Translations: [Other osteoporosis with current pathological fracture, unspecified site, subsequent encounter for fracture with malunion] Episodic Regional enteritis and ulcerative colitis (20 sources) Crohn's disease; Translations: [Crohn's disease, unspecified, without complications] Onset: 5 11-15-2023 Chronic Residual codes; unclassified (20 sources) History of hernia repair; Translations: [Other specified postprocedural states] 01-25-2020 Episodic Residual codes; unclassified (19 sources) History of fundoplication; Translations: [Other specified postprocedural states] 10-09-2022 Episodic Residual codes; unclassified (1 source) Other amnesia; Translations: [Other amnesia] Onset: 4 Episodic Residual codes; unclassified (1 source) Pain; Translations: [Pain, unspecified] 09-24-2024 Episodic Residual codes; unclassified (1 source) Illness, unspecified; Translations: [Illness, unspecified] Onset: 5 Episodic Retinal detachments; defects; vascular occlusion; and retinopathy (20 sources) Retinal pigment epithelial abnormality; Translations: [Other specified retinal disorders] Onset: 5 07-27-2015 Chronic Rheumatoid arthritis and related disease (20 sources) Rheumatoid arthritis; Translations: [Rheumatoid arthritis, unspecified] Onset: 2 Chronic Spondylosis; intervertebral disc disorders; other back problems (20 sources) Degeneration of cervical intervertebral disc; Translations: [Degeneration of lumbar intervertebral disc] Onset: 1 Resolved: 1 10-07-2015 Chronic Superficial injury; contusion (20 sources) Contusion of head; Translations: [Contusion of unspecified part of head, initial encounter] 10-19-2023 Episodic Unclassified (1 source) Non-Chemotherapy Treatment Onset: 5 Viral infection (9 sources) Disease caused by 2019-nCoV; Translations: [COVID-19] Episodic Past or Other Problems Problem Classification Problem Date Documented Da te Episodic/Chronic Abdominal pain (20 sources) Abdominal pain; Translations: [Unspecified abdominal pain] Onset: 4 Resolved: 4 01-24-2020 Episodic Anal and rectal conditions (20 sources) Rectal pain; Translations: [Other specified diseases of anus and rectum] Onset: 5 09-02-2024 Episodic Blindness and vision defects (20 sources) Bilateral hyperopia of eyes; Translations: [Hypermetropia, bilateral] Onset: 8 04-22-2018 Episodic Cardiac dysrhythmias (20 sources) Intermittent palpitations; Translations: [Palpitations] Onset: 5 12-13-2014 Episodic Deficiency and other anemia (20 sources) Anemia; Translations: [Anemia, unspecified] Onset: 5 Resolved: 8 07-24-2021 Episodic Deficiency and other anemia (2 sources) Iron deficiency anemia, unspecified; Translations: [Iron deficiency anemia, unspecified iron deficiency anemia type] Onset: 1 Episodic Fracture of upper limb (20 sources) Closed fracture of triquetral bone of left wrist; Translations: [Displaced fracture of triquetrum [cuneiform] bone, left wrist, initial encounter for closed fracture] Onset: 2 Resolved: 0 07-31-2019 Episodic Gastrointestinal hemorrhage (20 sources) Gastrointestinal hemorrhage; Translations: [Gastrointestinal hemorrhage, unspecified] Onset: 9 Resolved: 0 07-31-2019 Episodic Genitourinary symptoms and ill-defined conditions (10 sources) Increased frequency of urination; Translations: [Frequency of micturition] Onset: 5 09-24-2024 Episodic Joint disorders and dislocations; trauma-related (20 sources) Tear of meniscus of knee; Translations: [Unspecified tear of unspecified meniscus, current injury, right knee, initial encounter] Onset: 0 Resolved: 0 12-06-2022 Episodic Other aftercare (20 sources) Taking high risk medication; Translations: [Other longterm (current) drug therapy] Onset: 0 12-01-2019 Episodic Other aftercare (1 source) Other longterm (current) drug therapy; Translations: [High risk medication use] Onset: 0 Episodic Other aftercare (1 source) Encounter for adjustment and management of vascular access device; Translations: [Encounter for adjustment and management of vascular access device] Onset: 5 Episodic Other circulatory disease (20 sources) Disorder of carotid artery; Translations: [Disorder of arteries and arterioles, unspecified] Onset: 4 Resolved: 0 10-07-2015 Chronic Other connective tissue disease (20 sources) Fibromyalgia; Translations: [Fibromyalgia] Onset: 4 07-24-2021 Episodic Other connective tissue disease (1 source) Pain in right leg; Translations: [Right leg pain] Onset: 5 Episodic Other eye disorders (20 sources) Vitreous floaters; Translations: [Other vitreous opacities, unspecified eye] Onset: 5 Resolved: 6 02-23-2016 Chronic Other eye disorders (20 sources) Dry eyes; Translations: [Dry eye syndrome of bilateral lacrimal glands] Onset: 5 07-27-2015 Episodic Other eye disorders (20 sources) Excess skin of eyelid; Translations: [Dermatochalasis of right upper eyelid] Onset: 5 07-31-2019 Episodic Other eye disorders (20 sources) Tear film insufficiency; Translations: [Dry eye syndrome of unspecified lacrimal gland] Onset: 7 02-27-2017 Episodic Other eye disorders (20 sources) Dermatochalasis of right upper eyelid; Translations: [Dermatochalasis] Onset: 5 07-31-2019 Episodic Other eye disorders (20 sources) Dermatochalasis of left upper eyelid; Translations: [Dermatochalasis of left upper eyelid] Onset: 5 Resolved: 0 07-31-2019 Episodic Other gastrointestinal disorders (1 source) Dysphagia, unspecified; Translations: [Dysphagia, unspecified] Onset: 4 Episodic Other injuries and conditions due to external causes (1 source) Encounter for examination and observation following other accident; Translations: [Encounter for examination and observation following other accident] Onset: 5 Episodic Other lower respiratory disease (20 sources) Dyspnea on exertion; Translations: [Dyspnea, unspecified] Onset: 7 08-24-2019 Episodic Other lower respiratory disease (20 sources) Dyspnea; Translations: [Shortness of breath] Onset: 6 Resolved: 0 Episodic Other lower respiratory disease (1 source) Shortness of breath; Translations: [Shortness of breath] Onset: 5 Episodic Other nervous system disorders (3 sources) Unsteadiness on feet; Translations: [Unsteadiness on feet] Onset: 4 Episodic Other non-traumatic joint disorders (20 sources) Hip pain; Translations: [Pain in unspecified hip] Onset: 5 09-30-2014 Episodic Other nutritional; endocrine; and metabolic disorders (20 sources) Morbid obesity; Translations: [Morbid (severe) obesity due to excess calories] Onset: 6 Resolved: 7 07-24-2021 Chronic Other nutritional; endocrine; and metabolic disorders (20 sources) Body mass index 40+ - severely obese; Translations: [Morbid (severe) obesity due to excess calories] Onset: 7 Resolved: 0 07-31-2019 Chronic Other screening for suspected conditions (not mental disorders or infectious disease) (20 sources) Patient encounter status; Translations: [Encounter for screening mammogram for malignant neoplasm of breast] Onset: 5 Episodic Pneumonia (except that caused by tuberculosis or sexually transmitted disease) (20 sources) Mycoplasma pneumonia; Translations: [Pneumonia due to Mycoplasma pneumoniae] Onset: 4 Resolved: 4 07-24-2021 Episodic Residual codes; unclassified (20 sources) Insomnia; Translations: [Insomnia, unspecified] Onset: 5 07-24-2021 Episodic Spondylosis; intervertebral disc disorders; other back problems (20 sources) Thoracic and lumbosacral neuritis; Translations: [Thoracic or lumbosacral neuritis or radiculitis, unspecified] Onset: 5 09-30-2014 Episodic Unclassified (2 sources) Patient encounter status 09-30-2024 Results Test Name Value Interpretation Reference Range Facility /Melita 02-24-2025 /[facility] Medical Records Department [address] [place] [address] PAT - Anesthesia 02/24/25 1501 MR#: [id number] Acct: [id number] Name: MARIMAR WANG Rep #: [id number] : 1960 64 From: Gabriel Renteria MD PCP: [facility] Arriola Status:PRE SD Y Race: C Location: [facility] [place] Pre-Assessment Diagnosis/Proposed Procedure Planned Operative Procedure(s): FLEX SIGMOIDOSCOPY Anesthesia History 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 When Was Last Pacemaker Check QUESTION #4 FULL TEXT: You/Your Family Experience fever (hyperthermia) with Anesthesia Last Oral Intake Last Oral intake: Last Oral Intake NPO since Meds taken in AM with sips of water? 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 Female Yes 02/24/25 14:24 HX of Motion Sickness Yes 02/24/25 14:24 HX of N/V After Surgery No 02/24/25 14:24 Non-Smoker Yes 02/24/25 14:24 Duration of Surgery greater No 02/24/25 14:24 than 60 minutes Number of Risk Factors 3 02/24/25 14:24 PONV Score Moderate Risk 02/24/25 14:24 Height Weight Height Weight: Anesthesia: Height Weight Height 5 ft 2 in 02/09/25 09:46 Respiratory Assessment Respiratory Assessment - ribbon hanking machine operator: Respiratory Tract Infection Hx - 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 Has anyone observed you stop No 02/24/25 14:24 breathing during sleep? STOP Results Negative 02/24/25 14:24 QUESTION #5 FULL TEXT : Do you snore loudly (louder than talking or can be heard through closed doors)? 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 Specify any problems Hx of Preganancy in last 3 No 02/24/25 14:24 Months Nurse Filling Out Transfusion [facility] 02/24/25 14:24 Questions: Date: 02/24/25 02/24/25 14:24 Time: 14:37 02/24/25 14:24 Patient unable to answer at this time (ie. 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: /Reproductive Hx- ribbon hanking machine operator Hx Now No 02/24/25 14:24 Gestational Age (in weeks): EDC: Hx Hx Para Hx Section SAB No 02/24/25 14:24 [facility] Medical History (Updated 02/24/25 @ 14:36 by Elida Oconnell) Cancer Walker as ambulation aid DVT (deep venous thrombosis) Gastric reflux 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 Mass of anus Perirectal abscess History of Crohn's disease Psoriatic arthritis Psoriasis Internal derangement of right knee Wears glasses Post-menopausal Depression Anxiety Ambulates with cane Injury of back Difficulty swallowing History of IBS History of hiatal hernia Former smoker Shortness of breath on exertion Chronic cough History of echocardiogram History of stress test Hypertension Cardiology follow-up encounter History of CHF (congestive heart failure) History of irregular heartbeat Acute pharyngitis, unspecified URI (upper respiratory infection) Contact with or suspected exposure to other viral com (more content not included)... Normal [facility] 02-09-2025 [facility] Surgery Visit Reporton 02-09 Surgery Visit Report [facility] [address] [place] [address] OFFICE VISIT Date of Service: 02/09/25 MR#: [id number] Acct: [id number] Name: MARIMAR WANG Rep #: [id number] : 1960 Provider: Dr. Kenya fuentes MD Age/Sex: 64/F Location: [facility] Status: Signed Intake Vital Signs 10/30/24 00:58 02/02/25 11:01 02/09/25 09:46 Height 5 ft 2 in 5 ft 2 in 5 ft 2 in Weight: 182 lb BMI 33.3 BP 134/76 H Blood Pressure Location Rt brachial Position Sitting Respiration 17 Pulse 68 Pulse Source Monitor Pulse Oximetry (%) 96 Oxygen Delivery Method room air Intake Visit Reasons: UPDATE H P, Sigmoidoscopy Chief Complaint: update H P, Sigmoidoscopy Is patient in pain?: No Allergies doxycycline calcium (From Vibramycin) Allergy (Verified 02/09/25 09:47) Anaphylaxis doxycycline hyclate (From Vibramycin) Allergy (Verified 02/09/25 09:47) Anaphylaxis doxycycline monohydrate (From Vibramycin) Allergy (Verified 02/09/25 09:47) Anaphylaxis NSAIDS (Non-Steroidal Anti-Inflamma Allergy (Verified 02/09/25 09:47) Anaphylaxis duloxetine (From Cymbalta) Adverse Reaction (Verified 02/09/25 09:47) HEADACHE AND UPSET STOMACH hydrocodone bitartrate (From Vicodin) Adverse Reaction (Verified 02/09/25 09:47) STOMACH UPSET hydromorphone HCl (From Dilaudid) Adverse Reaction (Verified 02/09/25 09:47) Vomiting morphine Adverse Reaction (Verified 02/09/25 09:47) Vomiting Medications ???Medication ???Instructions ???Recorded ???Confirmed ???Type albuterol sulfate 90 mcg/actuation 2 puff inhalation Q4H PRN PRN 02/09/25 History aerosol inhaler Shortness Of Breath fluoxetine 20 mg capsule 60 mg PO QHS MENTAL HEALTH 6 02/09/25 History peg [id number] n 1 1 drp OP 4X/DAY DRY EYES 11/13/17 02/09/25 History %-0.2 %-0.2 % eye drops (Dry Eye Relief) leflunomide 20 mg tablet (Arava) 20 mg PO QHS RA 03/22/18 02/09/25 History amlodipine 5 mg tablet 7.5 mg PO QHS BP 08/15/22 02/09/25 History mometasone 50 mcg/actuation nasal 2 spray intranasal .QAM ALLERGIES 08/15/22 02/09/25 History spray ergocalciferol (vitamin D2) 1,250 1,250 mcg PO .EVERY OTHER WEEK 02/09/25 History mcg (50,000 unit) capsule (Vitamin SUPPELEMNT D2) mecobalamin (vitamin B12) 1,000 1,000 mcg sublingual QHS SUPPLEMEN T 12/06/22 02/09/25 History mcg disintegrating tablet,sublingual abatacept 50 mg/0.4 mL 50 mg subcut QMONTH RA 12/17/22 History subcutaneous syringe (Orencia) Held on 10/02/24. Instructions: due to chemo acetaminophen 500 mg tablet 1,000 mg PO Q6H PRN fever or pain 11/15/23 02/09/25 History atorvastatin 80 mg tablet 80 mg PO QHS 11/15/23 02/09/25 His tory meclizine 25 mg tablet 25 mg PO DAILY PRN PRN dizziness 0 03/17/24 02/09/25 History bupropion HCl (smoking deter) 150 150 mg PO QHS 09/02/24 02/09/25 H istory mg tablet,12 hr sustained-release(smokin g deterrent) apixaban 5 mg (74 tabs) tablets in 10 mg PO Q12H 10/24/24 02/09/25 History a dose pack (Eliquis DVT-PE Treat 30D Start) cholecalciferol (vitamin D3) 1,250 1,250 mcg PO DAILY 10/24/2401/26 History mcg (50,000 unit) capsule furosemide 20 mg tablet 20 mg PO DAILY 10/24/24 02/09/25 H istory alprazolam 1 mg tablet 1 mg PO TID 30 days #90 tabs 12/0202/09/25 Rx dicyclomine 10 mg capsule 10 mg PO TID PRN for abdominal 02/09/25 Rx pain #90 caps pantoprazole 40 mg tablet,delayed 40 mg PO DAILY #90 TABLETS 02/09/25 Rx release diphenoxylate-atropine 2.5 1 tab PO TID PRN diarrhea #90 tabs 02/02/25 02/09/25 Rx mg-0.025 mg tablet (Lomotil) promethazine 25 mg tablet 25 mg PO Q6H PRN PRN Nausea #30 02/09/25 Rx tabs budesonide 3 mg 1 mg PO QAM 02/09/25 02/09/25 Hist ory capsule,delayed,extended release Have you fallen in the past year?: No PFSH Medical History 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 Mass of anus Perirectal abscess History of Crohn's disease Psoriatic arthritis Psoriasis Internal derangement of right knee Wears glasses Post-menopausal Depression Anxiety Ambulates with cane Injury of back Difficulty swallowing History of IBS History of hiatal hernia Former smoker Shortness of breath on exertion Chronic cough History of echocardiogram History of stress test Hypertension Cardiology follow-up encounter History of CHF (congestive heart failure) History of irregular heartbeat Acute pharyngitis, unspecified URI (upper respiratory infection) Contact with or suspected exposure to other viral communicable disease History of partial replacement of left hip joint using bipolar pros (more content not included)... Normal [facility] Gastroenterology Visit Repor ton 02-02-2025 Gastroenterology Visit Report [facility] [address] [place] [address] OFFICE VISIT Date of Service: 02/02/25 MR#: [id number] Acct: [id number] Name: MARIMAR WANG Rep #: [id number] : 1960 Provider: [facility] arriaza Age/Sex: 64/F Location: [facility] [place] Status: Signed Intake Vital Signs 01/14/25 08:27 02/02/25 11:01 Height 5 ft 2 in 5 ft 2 in Weight: 183 lb 183 lb BMI 33.5 33.5 BP 167/84 H 160/77 H Blood Pressure Location Rt brachial Position Sitting Respiration 20 H Pulse 74 75 Pulse Source Monitor Temp 97.6 F L Temp Source Temporal Pulse Oximetry (%) 96 96 Oxygen Delivery Method room air room air Intake Visit Reasons: 3 WEEK FU Chief Complaint: Crohn's follow-up Allergies doxycycline calcium (From Vibramycin) Allergy (Verified 02/02/25 11:00) Anaphylaxis doxycycline hyclate (From Vibramycin) Allergy (Verified 02/02/25 11:00) Anaphylaxis doxycycline monohydrate (From Vibramycin) Allergy (Verified 02/02/25 11:00) Anaphylaxis NSAIDS (Non-Steroidal Anti-Inflamma Allergy (Verified 02/02/25 11:00) Anaphylaxis duloxetine (From Cymbalta) Adverse Reaction (Verified 02/02/25 11:00) HEADACHE AND UPSET STOMACH hydrocodone bitartrate (From Vicodin) Adverse Reaction (Verified 02/02/25 11:00) STOMACH UPSET hydromorphone HCl (From Dilaudid) Adverse Reaction (Verified 02/02/25 11:00) Vomiting morphine Adverse Reaction (Verified 02/02/25 11:00) Vomiting Medications ???Medication ???Instructions ???Recorded ???Confirmed ???Type albuterol sulfate 90 mcg/actuation 2 puff inhalation Q4H PRN PRN 02/02/25 History aerosol inhaler Shortness Of Breath fluoxetine 20 mg capsule 60 mg PO QHS MENTAL HEALTH 6 02/02/25 History peg [id number] n 1 1 drp OP 4X/DAY DRY EYES 11/13/17 02/02/25 History %-0.2 %-0.2 % eye drops (Dry Eye Relief) leflunomide 20 mg tablet (Arava) 20 mg PO QHS RA 03/22/18 02/02/25 History amlodipine 5 mg tablet 7.5 mg PO QHS BP 08/15/22 02/02/25 History mometasone 50 mcg/actuation nasal 2 spray intranasal .QAM ALLERGIES 08/15/22 02/02/25 History spray ergocalciferol (vitamin D2) 1,250 1,250 mcg PO .EVERY OTHER WEEK 02/02/25 History mcg (50,000 unit) capsule (Vitamin SUPPELEMNT D2) mecobalamin (vitamin B12) 1,000 1,000 mcg sublingual QHS SUPPLEMEN T 12/06/22 02/02/25 History mcg disintegrating tablet,sublingual abatacept 50 mg/0.4 mL 50 mg subcut QMONTH RA 12/17/22 History subcutaneous syringe (Orencia) Held on 10/02/24. Instructions: due to chemo acetaminophen 500 mg tablet 1,000 mg PO Q6H PRN fever or pain 11/15/23 02/02/25 History atorvastatin 80 mg tablet 80 mg PO QHS 11/15/23 02/02/25 His tory meclizine 25 mg tablet 25 mg PO DAILY PRN PRN dizziness 0 03/17/24 02/02/25 History bupropion HCl (smoking deter) 150 150 mg PO QHS 09/02/24 02/02/25 H istory mg tablet,12 hr sustained-release(smokin g deterrent) apixaban 5 mg (74 tabs) tablets in 10 mg PO Q12H 10/24/24 02/02/25 History a dose pack (Eliquis DVT-PE Treat 30D Start) cholecalciferol (vitamin D3) 1,250 1,250 mcg PO DAILY 10/24/2403/22 History mcg (50,000 unit) capsule furosemide 20 mg tablet 20 mg PO DAILY 10/24/24 02/02/25 H istory alprazolam 1 mg tablet 1 mg PO TID 30 days #90 tabs 12/0202/02/25 Rx budesonide 3 mg 6 mg (2 x 3 mg) PO DAILY #60 caps 01/25/25 02/02/25 Rx capsule,delayed,extended release dicyclomine 10 mg capsule 10 mg PO TID PRN for abdominal 02/02/25 Rx pain #90 caps pantoprazole 40 mg tablet,delayed 40 mg PO DAILY #90 TABLETS 02/02/25 Rx release diphenoxylate-atropine 2.5 1 tab PO TID PRN diarrhea #90 tabs 02/02/25 02/02/25 Rx mg-0.025 mg tablet (Lomotil) promethazine 25 mg tablet 25 mg PO Q6H PRN PRN Nausea #30 02/02/25 Rx tabs Have you fallen in the past year?: No PFSH Medical History 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 Mass of anus Perirectal abscess History of Crohn's disease Psoriatic arthritis Psoriasis Internal derangement of right knee Wears glasses Post-menopausal Depression Anxiety Ambulates with cane Injury of back Difficulty swallowing History of IBS History of hiatal hernia Former smoker Shortness of breath on exertion Chronic cough History of echocardiogram History of stress test Hypertension Cardiology follow-up encounter History of CHF (congestive heart failure) History of irregular heartbeat Acute pharyngitis, unspecified URI (upper respiratory infection) Contact with or suspected exposure to other viral communicable disease History of partial replacement of left hip joint using bipolar pro (more content not included)... Normal [facility] CBC W Auto Differential pane l (Bld)on 02-01-2025 Basophils (Bld) [#/Vol] 0.05 10*3/uL [facility] Basophils/100 WBC (Bld) 1.1 % C [facility] Differential cell count method Nom (Bld) Auto [facility] Eosinophils (Bld) [#/Vol] 0.2 10*3/uL [facility] Eosinophils/100 WBC (Bld) 4.4 % [facility] Erythrocyte distribution width (RBC) [Ratio] 14.1 % 11.5 - 15.0 % [facility] Hematocrit (Bld) [Volume fraction] 34.2 % Low 36.0 - 46.0 % [facility] Hemoglobin (Bld) [Mass/Vol] 10.9 g/dL Low 11.5 - 15.5 g/dL [facility] Immature granulocytes (Bld) [#/Vol] NINF [facility] Immature granulocytes/100 WBC (Bld) 0.4 % [facility] Interpretation and review of laboratory results Abnormal [facility] Lymphocytes (Bld) [#/Vol] 0.39 10*3/uL Low [facility] Lymphocytes/100 WBC (Bld) 8.6 % [facility] MCH (RBC) [Entitic mass] 29.2 pg 26.0 - 34.0 pg [facility] MCHC (RBC) [Mass/Vol] 31.9 g/dL 30.5 - 36.0 g/dL [facility] MCV (RBC) [Entitic vol] 91.7 fL 80.0 - 100.0 fL [facility] Monocytes (Bld) [#/Vol] 0.51 10*3/uL [facility] Monocytes/100 WBC (Bld) 11.2 % [facility] Neutrophils (Bld) [#/Vol] 3.39 10*3/uL [facility] Neutrophils/100 WBC (Bld) 74.3 % [facility] Nucleated RBC (Bld) [#/Vol] NINF [facility] Nucleated RBC/100 WBC (Bld) [Ratio] 0 % /100 WBC [facility] Platelet mean volume (Bld) [Entitic vol] 10.4 fL 9.0 - 12.7 fL [facility] Platelets (Bld) [#/Vol] 202 10*3/uL [facility] RBC (Bld) [#/Vol] 3.73 10*6/uL Low 3.90 - 5.2 0 m/uL [facility] WBC (Bld) [#/Vol] 4.56 10*3/uL [facility] Basophils (Bld) [#/Vol] 0.05 10*3/uL Normal <0.11 [facility] 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: Order Comment: Speci men Type: BLOOD SPECIMENOrdering Facility: [facility] Address: [address] [place] [address] Performed By: #### 5 7021-8 ####[facility] [id number] [place] [address] [place] Basophils/100 WBC (Bld) 1.1 % Normal [facility] 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: Order Comment: Speci men Type: BLOOD SPECIMENOrdering Facility: [facility] Address: [address] [place] [address] Performed By: #### 5 7021-8 ####[facility] [id number] [place] [address] [place] Differential cell count method Nom (Bld) Auto Normal [facility] 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: Order Comment: Speci men Type: BLOOD SPECIMENOrdering Facility: [facility] Address: [address] [place] [address] Performed By: #### 5 7021-8 ####[facility] [id number] [place] [address] [place] Eosinophils (Bld) [#/Vol] 0.20 10*3/uL Normal <0.46 [facility] 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: Order Comment: Speci men Type: BLOOD SPECIMENOrdering Facility: [facility] Address: [address] [place] [address] Performed By: #### 5 7021-8 ####[facility] [id number] [place] [address] [place] Eosinophils/100 WBC (Bld) 4.4 % Normal [facility] 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: Order Comment: Speci men Type: BLOOD SPECIMENOrdering Facility: [facility] Address: [address] [place] [address] Performed By: #### 5 7021-8 ####[facility] [id number] [place] [address] [place] Erythrocyte distribution width (RBC) [Ratio] 14.1 % Normal 11.5-15.0 [facility] 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: Order Comment: Speci men Type: BLOOD SPECIMENOrdering Facility: [facility] Address: [address] [place] [address] Performed By: #### 5 7021-8 ####[facility] MARSHALTIFFANIFroy [id number] [place] [address] [place] Hematocrit (Bld) [Volume fraction] 34.2 % Low 36.0-46.0 [facility] 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: Order Comment: Speci men Type: BLOOD SPECIMENOrdering Facility: [facility] Address: [address] [place] [address] Performed By: #### 5 7021-8 ####[facility] ALYSSAOCONTONICOLE [id number] [place] [address] [place] Hemoglobin (Bld) [Mass/Vol] 10.9 g/dL Low 11.5-15.5 [facility] 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: Order Comment: Speci men Type: BLOOD SPECIMENOrdering Facility: [facility] Address: [address] [place] [address] Performed By: #### 5 7021-8 ####[facility] SEBRINGZEVF[facility] [id number] [place] [address] [place] Immature granulocytes (Bld) [#/Vol] 10*3/uL Normal <0.10 [facility] 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: Order Comment: Speci men Type: BLOOD SPECIMENOrdering Facility: [facility] Address: [address] [place] [address] Performed By: #### 5 7021-8 ####[facility] SEBRINGHAMLETA [id number] [place] [address] [place] Immature granulocytes/100 WBC (Bld) 0.4 % Normal [facility] 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: Order Comment: Speci men Type: BLOOD SPECIMENOrdering Facility: [facility] Address: [address] [place] [address] Performed By: #### 5 7021-8 ####[facility]ITALWNCLIA [id number] [place] [address] [place] Lymphocytes (Bld) [#/Vol] 0.39 10*3/uL Low 1.00-4.00 [facility] 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: Order Comment: Speci men Type: BLOOD SPECIMENOrdering Facility: [facility] Address: [address] [place] [address] Performed By: #### 5 7021-8 ####[facility] [id number] [place] [address] [place] Lymphocytes/100 WBC (Bld) 8.6 % Normal [facility] 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: Order Comment: Speci men Type: BLOOD SPECIMENOrdering Facility: [facility] Address: [address] [place] [address] Performed By: #### 5 7021-8 ####[facility] [id number] [place] [address] [place] MCH (RBC) [Entitic mass] 29.2 pg Normal 26.0-34.0 [facility] 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: Order Comment: Speci men Type: BLOOD SPECIMENOrdering Facility: [facility] Address: [address] [place] [address] Performed By: #### 5 7021-8 ####[facility] [id number] [place] [address] [place] MCHC (RBC) [Mass/Vol] 31.9 g/dL Normal 30.5-36.0 [facility] 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: Order Comment: Speci men Type: BLOOD SPECIMENOrdering Facility: [facility] Address: [address] [place] [address] Performed By: #### 5 7021-8 ####[facility] SE[facility]INGNCL[facility] [id number] [place] [address] [place] MCV (RBC) [Entitic vol] 91.7 fL Normal 80.0-100.0 C [facility] 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: Order Comment: Speci men Type: BLOOD SPECIMENOrdering Facility: [facility] Address: [address] [place] [address] Performed By: #### 5 7021-8 ####[facility] [id number] [place] [address] [place] Monocytes (Bld) [#/Vol] 0.51 10*3/uL Normal <0.87 [facility] 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: Order Comment: Speci men Type: BLOOD SPECIMENOrdering Facility: [facility] Address: [address] [place] [address] Performed By: #### 5 7021-8 ####[facility] [id number] [place] [address] [place] Monocytes/100 WBC (Bld) 11.2 % Normal C [facility] 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: Order Comment: Speci men Type: BLOOD SPECIMENOrdering Facility: [facility] Address: [address] [place] [address] Performed By: #### 5 7021-8 ####[facility] [id number] [place] [address] [place] Neutrophils (Bld) [#/Vol] 3.39 10*3/uL Normal 1.45-7.50 [facility] 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: Order Comment: Speci men Type: BLOOD SPECIMENOrdering Facility: [facility] Address: [address] [place] [address] Performed By: #### 5 7021-8 ####[facility]ING[facility]CL[facility] [id number] [place] [address] [place] Neutrophils/100 WBC (Bld) 74.3 % Normal [facility] 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: Order Comment: Speci men Type: BLOOD SPECIMENOrdering Facility: [facility] Address: [address] [place] [address] Performed By: #### 5 7021-8 ####[facility] ALYSSAJAZMYN [id number] [place] [address] [place] Nucleated RBC (Bld) [#/Vol] 10*3/uL Normal <0.01 [facility] 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: Order Comment: Speci men Type: BLOOD SPECIMENOrdering Facility: [facility] Address: [address] [place] [address] Performed By: #### 5 7021-8 ####[facility] [id number] [place] [address] [place] Nucleated RBC/100 WBC (Bld) [Ratio] 0.0 /100 WBC Normal [facility] 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: Order Comment: Speci men Type: BLOOD SPECIMENOrdering Facility: [facility] Address: [address] [place] [address] Performed By: #### 5 7021-8 ####[facility] [id number] [place] [address] [place] Platelet mean volume (Bld) [Entitic vol] 10.4 fL Normal 9.0-12.7 [facility] 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: Order Comment: Speci men Type: BLOOD SPECIMENOrdering Facility: [facility] Address: [address] [place] [address] Performed By: #### 5 7021-8 ####[facility] [id number] [place] [address] [place] Platelets (Bld) [#/Vol] 202 10*3/uL Normal 150-400 [facility] 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: Order Comment: Speci men Type: BLOOD SPECIMENOrdering Facility: [facility] Address: [address] [place] [address] Performed By: #### 5 7021-8 ####[facility]INGNCL[facility] [id number] [address] RBC (Bld) [#/Vol] 3.73 10*6/uL Low 3.90-5.20 [facility] 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: Order Comment: Speci men Type: BLOOD SPECIMENOrdering Facility: [facility] Address: [facility] [place] [address] Performed By: #### 5 7021-8 ####[facility]INGNCL[facility] [id number] [address] WBC (Bld) [#/Vol] 4.56 10*3/uL Normal 3.70-11.00 [facility] 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: Order Comment: Speci men Type: BLOOD SPECIMENOrdering Facility: [facility] Address: [address] [place], [place] [address] [address] Performed By: #### 5 7021-8 ####[facility]INGNCL[facility] [id number] [address] Comprehensive metabolic 2000 panelOrdered By: Tala Mejia on 02-01-2025 Albumin [Mass/Vol] 3.6 g/dL Low 3.9 - 4.9 g/dL [facility] ALP [Catalytic activity/Vol] 85 U/L 34 - 123 U/L [facility] ALT [Catalytic activity/Vol] 8 U/L 7 - 38 U/L [facility] Anion gap [Moles/Vol] 13 mmol/L 8 - 15 mmol/L [facility] AST [Catalytic activity/Vol] 15 U/L 13 - 35 U/L [facility] Bilirubin [Mass/Vol] 0.2 mg/dL 0.2 - 1 .3 mg/dL [facility] Calcium [Mass/Vol] 8.8 mg/dL 8.5 - 10. 2 mg/dL [facility] Chloride [Moles/Vol] 101 mmol/L 98 - 10 7 mmol/L [facility] CO2 [Moles/Vol] 21 mmol/L Low 22 - 30 mmol/L [facility] Creatinine [Mass/Vol] 0.62 mg/dL 0.58 - 0.96 mg/dL [facility] GFR/1.73 sq M.predicted among non-blacks MDRD (S/P/Bld) [Vol rate/Area] 99 mL/min/{1.73_m2} - PINF [facility] 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: Estimated Glomerular Filtration Rate (eGFR) is calculated using the 2020 CKD-EPI creatinine equation. This equation utilizes serum creatinine, sex, and age as parameters. The creatinine assay has traceable calibration to isotope dilution-mass spectrometry. Refer to KDIGO guidelines for clinical interpretation. In patients with unstable renal function, e.g. those with acute kidney injury, the eGFR may not accurately reflect actual GFR. Glucose [Mass/Vol] 92 mg/dL 74 - 99 mg/dL [facility] 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: The [place] Diab[employer] s Association (ADA) provides guidance for cutoff values for fasting glucose and random glucose. The ADA defines fasting as no caloric intake for at least 8 hours. Fasting plasma glucose results between 100 to 125 mg/dL indicate increased risk for diabetes (prediabetes). Fasting plasma glucose results greater than or equal to 126 mg/dL meet the criteria for diagnosis of diabetes. In the absence of unequivocal hyperglycemia, results should be confirmed by repeat testing. In a patient with classic symptoms of hyperglycemia or hyperglycemic crisis, random plasma glucose results greater than or equal to 200 mg/dL meet the criteria for diagnosis of diabetes. Reference: Standards of Medical Care in Diabetes 2016, [place] Diabetes Association. Diabetes Care. 2016.39(Suppl 1). Interpretation and review of laboratory results Abnormal [facility] Potassium [Moles/Vol] 4.4 mmol/L 3.7 - 5.1 mmol/L [facility] Protein [Mass/Vol] 6.3 g/dL 6.3 - 8.0 g/dL [facility] Sodium [Moles/Vol] 135 mmol/L Low 136 - 144 mmol/L [facility] Urea nitrogen [Mass/Vol] 7 mg/dL 7 - 21 mg/dL [facility] Comprehensive metabolic 2000 panelon 02-01-2025 Albumin [Mass/Vol] 3.6 g/dL Low 3.9-4.9 [facility] 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: Order Comment: Speci men Type: BLOOD SPECIMENOrdering Facility: [facility] Address: [address] [place] [address] Performed By: #### 2 4323-8 ####[facility] MILLTOWNCLIA [id number] [address] [place] LABCLIA [id number] [place] [address] [place] ALP [Catalytic activity/Vol] 85 U/L Normal 34-123 [facility] 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: Order Comment: Speci men Type: BLOOD SPECIMENOrdering Facility: [facility] Address: [address] [place] [address] Performed By: #### 2 4323-8 ####[facility] MILLTOWNCLIA [id number] [address] [place] LABCLIA [id number] [place] [address] [place] ALT [Catalytic activity/Vol] 8 U/L Normal 7-38 [facility] 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: Order Comment: Speci men Type: BLOOD SPECIMENOrdering Facility: [facility] Address: [address] [place] [address] Performed By: #### 2 4323-8 ####[facility] MILLTOWNCLIA [id number] [address] [facility] [place] LABCLIA [id number] [place] [address] [place] Anion gap [Moles/Vol] 13 mmol/L Normal 8-15 [facility] 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: Order Comment: Speci men Type: BLOOD SPECIMENOrdering Facility: [facility] Address: [address] [place] [address] Performed By: #### 2 4323-8 ####[facility] MILLTOWNCLIA [id number] [address] OF [facility] [place] LABCLIA [id number] [place] [address] [place] AST [Catalytic activity/Vol] 15 U/L Normal 13-35 [facility] 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: Order Comment: Speci men Type: BLOOD SPECIMENOrdering Facility: [facility] Address: [address] [place] [address] Performed By: #### 2 4323-8 ####[facility] MILLTOWNCLIA [id number] [address] [facility] [place] LABCLIA [id number] [place] [address] [place] Bilirubin [Mass/Vol] 0.2 mg/dL Normal 0.2-1.3 [facility] 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: Order Comment: Speci men Type: BLOOD SPECIMENOrdering Facility: [facility] Address: [address] [place] [address] Performed By: #### 2 4323-8 ####[facility] MILLTOWNCLIA [id number] [address] [facility] [place] LABCLIA [id number] [place] [address] [place] Calcium [Mass/Vol] 8.8 mg/dL Normal 8.5-10.2 [facility] 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: Order Comment: Speci men Type: BLOOD SPECIMENOrdering Facility: [facility] Address: [address] [place] [address] Performed By: #### 2 4323-8 ####[facility] ERTOWNCLIA [id number] [address] [facility] [place] LABCLIA [id number] [facility] [place] [address] [place] Chloride [Moles/Vol] 101 mmol/L Normal 98-107 [facility] 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: Order Comment: Speci men Type: BLOOD SPECIMENOrdering Facility: [facility] Address: [address] [place] [address] Performed By: #### 2 4323-8 ####[facility] MILLTOWNCLIA [id number] [address] [place] LABCLIA [id number] [place] [address] [place] CO2 [Moles/Vol] 21 mmol/L Low 22-30 [facility] 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: Order Comment: Speci men Type: BLOOD SPECIMENOrdering Facility: [facility] Address: [address] [place] [address] Performed By: #### 2 4323-8 ####[facility] MILLTOWNCLIA [id number] [address] [place] LABCLIA [id number] [place] [address] [place] Creatinine [Mass/Vol] 0.62 mg/dL Normal 0.58-0.96 [facility] 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: Order Comment: Speci men Type: BLOOD SPECIMENOrdering Facility: [facility] Address: [address] [place] [address] Performed By: #### 2 4323-8 ####[facility]ITALWNCLIA [id number] [address] [place] LABCLIA [id number] [place] [address] [place] Creatinine and Glomerular filtration rate.predicted panel (S/P/Bld) 99 mL/min/1.73m??? Normal >=60 [facility] 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: Order Comment: Speci men Type: BLOOD SPECIMENOrdering Facility: [facility] Address: [address] [place] [address] Result Comment: Sonia mated Glomerular Filtration Rate (eGFR) is calculated using the 2020 CKD-EPI creatinine equation. This equation utilizes serum creatinine, sex, and age as parameters. The creatinine assay has traceable calibration to isotope dilution-mass spectrometry. Refer to KDIGO guidelines for clinical interpretation. In patients with unstable renal function, e.g. those with acute kidney injury, the eGFR may not accurately reflect actual GFR. Performed By: #### 2 4323-8 ####[facility] RIGOBERTO LIZWNCLIA [id number] [address] [place] LABCLIA [id number] [place] [address] [place] Glucose [Mass/Vol] 92 mg/dL Normal 74-99 [facility] 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: Order Comment: Speci men Type: BLOOD SPECIMENOrdering Facility: [facility] Address: [address] [place] [address] Result Comment: The [place] Diabetes Association (ADA) provides guidance for cutoff values for fasting glucose and random glucose. The ADA defines fasting as no caloric intake for at least 8 hours. Fasting plasma glucose results between 100 to 125 mg/dL indicate increased risk for diabetes (prediabetes).Fasting plasma glucose results greater than or equal to 126 mg/dL meet the criteria for diagnosis of diabetes. In the absence of unequivocal hyperglycemia, results should be confirmed by repeat testing. In a patient with classic symptoms of hyperglycemia or hyperglycemic crisis, random plasma glucose results greater than or equal to 200 mg/dL meet the criteria for diagnosis of diabetes.Reference: Standards of Medical Care in Diabetes 2016, [place] Diabetes [employer]. Diabetes Care. 2016.39(Suppl 1). Performed By: #### 2 4323-8 ####[facility] RIGOBERTO SHALONDAWNCLIA [id number] [address] LABCLIA [id number] [place] [address] [place] Potassium [Moles/Vol] 4.4 mmol/L Normal 3.7-5.1 [facility] 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: Order Comment: Mindy mcfarlane Type: BLOOD SPECIMENOrdering Facility: [facility] Address: [address] [id number] Performed By: #### 2 4323-8 ####[facility]INGHAMLETA [id number] [place], [place] [address] [place], [place] [address] [place] LABCLIA [id number] [facility] [place] [address] [place] Protein [Mass/Vol] 6.3 g/dL Normal 6.3-8.0 [facility] 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: Order Comment: Speci men Type: BLOOD SPECIMENOrdering Facility: [facility] Address: [address] [place] [address] Performed By: #### 2 4323-8 ####[facility] MILLTOWNCLIA [id number] [address] [facility] [place] LABCLIA [id number] [place] [address] [place] Sodium [Moles/Vol] 135 mmol/L Low 136-144 [facility] 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: Order Comment: Speci men Type: BLOOD SPECIMENOrdering Facility: [facility] Address: [address] [place], [place] [address] Performed By: #### 2 4323-8 ####[facility] MILLTOWNCLIA [id number] [address] [facility] [place] LABCLIA [id number] [place] [address] [place] Urea nitrogen [Mass/Vol] 7 mg/dL Normal 7-21 [facility] 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: Order Comment: Speci men Type: BLOOD SPECIMENOrdering Facility: [facility] Address: [address] [place] [address] Performed By: #### 2 4323-8 ####[facility] MILLTOWNCLIA [id number] [address] [place] LABCLIA [id number] [place] [address] [place] MRI PELVIS WO/W IVCONon 07-0 MRI PELVIS WO/W IVCON Normal [facility] 25([place])D3 SerPl-mCncon 2024 25-hydroxyvitamin D3 [Mass/Vol] 33.8 ng/mL Normal 31.0-80.0 [facility] 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: Order Comment: Speci men Type: BLOOD SPECIMENOrdering Facility: External Submitter Address: , , Result Comment: Clas sification of 25 [place] Vitamin D status:Deficiency/Insufficiency: < or = 30 ng/ml.Sufficiency/Optimal Levels: 31-80 ng/mLToxicity: > 100 ng/mL.Test performed by chemiluminescent immunoassay. Performed By: #### 1 989-3 ####[facility] LABCLIA [id number] [place] [address] [place] CBC W Auto Differential pane l (Bld)on 01-14-2025 Basophils (Bld) [#/Vol] 0.05 10*3/uL [facility] Basophils/100 WBC (Bld) 1 % [facility] Differential cell count method Nom (Bld) Auto [facility] Eosinophils (Bld) [#/Vol] 0.12 10*3/uL [facility] Eosinophils/100 WBC (Bld) 2.5 % [facility] Erythrocyte distribution width (RBC) [Ratio] 15.8 % High 11.5 - 15.0 % [facility] Hematocrit (Bld) [Volume fraction] 35.3 % Low 36.0 - 46.0 % [facility] Hemoglobin (Bld) [Mass/Vol] 11.3 g/dL Low 11.5 - 15.5 g/dL [facility] Immature granulocytes (Bld) [#/Vol] 0.03 10*3/uL [facility] Immature granulocytes/100 WBC (Bld) 0.6 % [facility] Interpretation and review of laboratory results Abnormal [facility] Lymphocytes (Bld) [#/Vol] 0.41 10*3/uL Low [facility] Lymphocytes/100 WBC (Bld) 8.4 % [facility] MCH (RBC) [Entitic mass] 29.1 pg 26.0 - 34.0 pg [facility] MCHC (RBC) [Mass/Vol] 32 g/dL 30.5 - 36.0 g/dL [facility] MCV (RBC) [Entitic vol] 91 fL 80.0 - 100.0 fL [facility] Monocytes (Bld) [#/Vol] 0.64 10*3/uL [facility] Monocytes/100 WBC (Bld) 13.2 % C [facility] Neutrophils (Bld) [#/Vol] 3.61 10*3/uL [facility] Neutrophils/100 WBC (Bld) 74.3 % [facility] Nucleated RBC (Bld) [#/Vol] [facility] Nucleated RBC/100 WBC (Bld) [Ratio] 0 % /100 WBC [facility] Platelet mean volume (Bld) [Entitic vol] 10.2 fL 9.0 - 12.7 fL [facility] Platelets (Bld) [#/Vol] 213 10*3/uL [facility] RBC (Bld) [#/Vol] 3.88 10*6/uL Low 3.90 - 5.2 0 m/uL [facility] WBC (Bld) [#/Vol] 4.86 10*3/uL [facility] Basophils (Bld) [#/Vol] 0.05 10*3/uL Normal <0.11 [facility] 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: Order Comment: Speci men Type: BLOOD SPECIMENOrdering Facility: External Submitter Address: , , Performed By: #### 5 7021-8 ####[facility] [id number] [place] [address] OF [facility] Basophils/100 WBC (Bld) 1.0 % Normal C [facility] 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: Order Comment: Speci men Type: BLOOD SPECIMENOrdering Facility: External Submitter Address: , , Performed By: #### 5 7021-8 ####[facility] [id number] [address] OF [facility] Differential cell count method Nom (Bld) Auto Normal [facility] 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: Order Comment: Speci men Type: BLOOD SPECIMENOrdering Facility: External Submitter Address: , , Performed By: #### 5 7021-8 ####[facility] [id number] [place] [address] [place] Eosinophils (Bld) [#/Vol] 0.12 10*3/uL Normal <0.46 [facility] 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: Order Comment: Speci men Type: BLOOD SPECIMENOrdering Facility: External Submitter Address: , , Performed By: #### 5 7021-8 ####[facility] [id number] [address] [place] Eosinophils/100 WBC (Bld) 2.5 % Normal [facility] 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: Order Comment: Speci men Type: BLOOD SPECIMENOrdering Facility: External Submitter Address: , , Performed By: #### 5 7021-8 ####[facility] [id number] [address] [place] Erythrocyte distribution width (RBC) [Ratio] 15.8 % High 11.5-15.0 [facility] 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: Order Comment: Speci men Type: BLOOD SPECIMENOrdering Facility: External Submitter Address: , , Performed By: #### 5 7021-8 ####[facility]INGNICO[facility] [id number] [address] [place] Hematocrit (Bld) [Volume fraction] 35.3 % Low 36.0-46.0 [facility] 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: Order Comment: Speci men Type: BLOOD SPECIMENOrdering Facility: External Submitter Address: , , Performed By: #### 5 7021-8 ####[facility] [id number] [address] [place] Hemoglobin (Bld) [Mass/Vol] 11.3 g/dL Low 11.5-15.5 [facility] 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: Order Comment: Speci men Type: BLOOD SPECIMENOrdering Facility: External Submitter Address: , , Performed By: #### 5 7021-8 ####[facility] [id number] [address] Immature granulocytes (Bld) [#/Vol] 0.03 10*3/uL Normal <0.10 [facility] 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: Order Comment: Speci men Type: BLOOD SPECIMENOrdering Facility: External Submitter Address: , , Performed By: #### 5 7021-8 ####[facility] [id number] [address] Immature granulocytes/100 WBC (Bld) 0.6 % Normal [facility] 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: Order Comment: Speci men Type: BLOOD SPECIMENOrdering Facility: External Submitter Address: , , Performed By: #### 5 7021-8 ####[facility] [id number] [address] Lymphocytes (Bld) [#/Vol] 0.41 10*3/uL Low 1.00-4.00 [facility] 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: Order Comment: Speci men Type: BLOOD SPECIMENOrdering Facility: External Submitter Address: , , Performed By: #### 5 7021-8 ####[facility] [id number] [address] Lymphocytes/100 WBC (Bld) 8.4 % Normal [facility] 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: Order Comment: Speci men Type: BLOOD SPECIMENOrdering Facility: External Submitter Address: , , Performed By: #### 5 7021-8 ####[facility] [id number] [address] [place] MCH (RBC) [Entitic mass] 29.1 pg Normal 26.0-34.0 [facility] 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: Order Comment: Speci men Type: BLOOD SPECIMENOrdering Facility: External Submitter Address: , , Performed By: #### 5 7021-8 ####[facility]INGHAM[facility] [id number] [address] STATES [facility] MCHC (RBC) [Mass/Vol] 32.0 g/dL Normal 30.5-36.0 Mikey [facility] 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: Order Comment: Speci men Type: BLOOD SPECIMENOrdering Facility: External Submitter Address: , , Performed By: #### 5 7021-8 ####[facility] [id number] [address] [place] MCV (RBC) [Entitic vol] 91.0 fL Normal 80.0-100.0 C [facility] 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: Order Comment: Speci men Type: BLOOD SPECIMENOrdering Facility: External Submitter Address: , , Performed By: #### 5 7021-8 ####[facility] [id number] [address] [place] Monocytes (Bld) [#/Vol] 0.64 10*3/uL Normal <0.87 [facility] 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: Order Comment: Speci men Type: BLOOD SPECIMENOrdering Facility: External Submitter Address: , , Performed By: #### 5 7021-8 ####[facility] [id number] [address] Monocytes/100 WBC (Bld) 13.2 % Normal C [facility] 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: Order Comment: Speci men Type: BLOOD SPECIMENOrdering Facility: External Submitter Address: , , Performed By: #### 5 7021-8 ####[facility] SEBRINGNCLI [id number] [address] Neutrophils (Bld) [#/Vol] 3.61 10*3/uL Normal 1.45-7.50 [facility] 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: Order Comment: Speci men Type: BLOOD SPECIMENOrdering Facility: External Submitter Address: , , Performed By: #### 5 7021-8 ####[facility] [id number] [place] [address] [place] Neutrophils/100 WBC (Bld) 74.3 % Normal [facility] 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: Order Comment: Speci men Type: BLOOD SPECIMENOrdering Facility: External Submitter Address: , , Performed By: #### 5 7021-8 ####[facility]ENTERTIFF[facility] [id number] [place] [address] [place] Nucleated RBC (Bld) [#/Vol] 10*3/uL Normal <0.01 [facility] 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: Order Comment: Speci men Type: BLOOD SPECIMENOrdering Facility: External Submitter Address: , , Performed By: #### 5 7021-8 ####[facility] [id number] [place] [address] [place] Nucleated RBC/100 WBC (Bld) [Ratio] 0.0 /100 WBC Normal [facility] 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: Order Comment: Speci men Type: BLOOD SPECIMENOrdering Facility: External Submitter Address: , , Performed By: #### 5 7021-8 ####[facility] [id number] [place] [address] [place] Platelet mean volume (Bld) [Entitic vol] 10.2 fL Normal 9.0-12.7 [facility] 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: Order Comment: Speci men Type: BLOOD SPECIMENOrdering Facility: External Submitter Address: , , Performed By: #### 5 7021-8 ####[facility] [id number] [place] [address] [place] Platelets (Bld) [#/Vol] 213 10*3/uL Normal 150-400 [facility] 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: Order Comment: Speci men Type: BLOOD SPECIMENOrdering Facility: External Submitter Address: , , Performed By: #### 5 7021-8 ####[facility] SEBRINGNCLIFroy [id number] [place] [address] [place] RBC (Bld) [#/Vol] 3.88 10*6/uL Low 3.90-5.20 [facility] 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: Order Comment: Speci men Type: BLOOD SPECIMENOrdering Facility: External Submitter Address: , , Performed By: #### 5 7021-8 ####[facility] [id number] [address] [place] WBC (Bld) [#/Vol] 4.86 10*3/uL Normal 3.70-11.00 [facility] 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: Order Comment: Speci men Type: BLOOD SPECIMENOrdering Facility: External Submitter Address: , , Performed By: #### 5 7021-8 ####[facility] [id number] [address] [place] CRP SerPl-mCncon 01-14-2025 CRP [Mass/Vol] 0.4 mg/dL Normal <0.9 [facility] 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: Order Comment: Speci men Type: BLOOD SPECIMENOrdering Facility: External Submitter Address: , , Performed By: #### 2 132-9, 1987-11 ####[facility] [facility] LABCLIA [id number] [address] [place] Comprehensive metabolic 2000 panelOrdered By: Cyndie Zhou on 01-14-2025 Albumin [Mass/Vol] 3.7 g/dL Low 3.9 - 4.9 g/dL [facility] ALP [Catalytic activity/Vol] 81 U/L 34 - 123 U/L [facility] ALT [Catalytic activity/Vol] 11 U/L 7 - 38 U/L [facility] Anion gap [Moles/Vol] 11 mmol/L 8 - 15 mmol/L [facility] AST [Catalytic activity/Vol] 20 U/L 13 - 35 U/L [facility] Bilirubin [Mass/Vol] 0.2 mg/dL 0.2 - 1 .3 mg/dL [facility] Calcium [Mass/Vol] 9.1 mg/dL 8.5 - 10. 2 mg/dL [facility] Chloride [Moles/Vol] 102 mmol/L 98 - 10 7 mmol/L [facility] CO2 [Moles/Vol] 21 mmol/L Low 22 - 30 mmol/L [facility] Creatinine [Mass/Vol] 0.59 mg/dL 0.58 - 0.96 mg/dL [facility] GFR/1.73 sq M.predicted among non-blacks MDRD (S/P/Bld) [Vol rate/Area] 100 mL/min/{1.73_m2} - PINF [facility] 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: Estimated Glomerular Filtration Rate (eGFR) is calculated using the 2020 CKD-EPI creatinine equation. This equation utilizes serum creatinine, sex, and age as parameters. The creatinine assay has traceable calibration to isotope dilution-mass spectrometry. Refer to KDIGO guidelines for clinical interpretation. In patients with unstable renal function, e.g. those with acute kidney injury, the eGFR may not accurately reflect actual GFR. Glucose [Mass/Vol] 106 mg/dL High 74 - 99 mg/dL [facility] 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: The [place] Diab[employer] s Association (ADA) provides guidance for cutoff values for fasting glucose and random glucose. The ADA defines fasting as no caloric intake for at least 8 hours. Fasting plasma glucose results between 100 to 125 mg/dL indicate increased risk for diabetes (prediabetes). Fasting plasma glucose results greater than or equal to 126 mg/dL meet the criteria for diagnosis of diabetes. In the absence of unequivocal hyperglycemia, results should be confirmed by repeat testing. In a patient with classic symptoms of hyperglycemia or hyperglycemic crisis, random plasma glucose results greater than or equal to 200 mg/dL meet the criteria for diagnosis of diabetes. Reference: Standards of Medical Care in Diabetes 2016, [place] [employer]. Diabetes Care. 2016.39(Suppl 1). Interpretation and review of laboratory results Abnormal [facility] Potassium [Moles/Vol] 4.2 mmol/L 3.7 - 5.1 mmol/L [facility] Protein [Mass/Vol] 6.1 g/dL Low 6.3 - 8.0 g/dL [facility] Sodium [Moles/Vol] 134 mmol/L Low 136 - 144 mmol/L [facility] Urea nitrogen [Mass/Vol] 9 mg/dL 7 - 21 mg/dL [facility] Comprehensive metabolic 2000 panelon 01-14-2025 Albumin [Mass/Vol] 3.7 g/dL Low 3.9-4.9 [facility] 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: Order Comment: Speci men Type: BLOOD SPECIMENOrdering Facility: External Submitter Address: , , Performed By: #### 2 4323-8 ####[facility] [id number] [place] [address] [place] ALP [Catalytic activity/Vol] 81 U/L Normal 34-123 [facility] 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: Order Comment: Speci men Type: BLOOD SPECIMENOrdering Facility: External Submitter Address: , , Performed By: #### 2 4323-8 ####[facility] [id number] [place] [address] [place] ALT [Catalytic activity/Vol] 11 U/L Normal 7-38 [facility] 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: Order Comment: Speci men Type: BLOOD SPECIMENOrdering Facility: External Submitter Address: , , Performed By: #### 2 4323-8 ####[facility] [id number] [place] [address] [place] Anion gap [Moles/Vol] 11 mmol/L Normal 8-15 [facility] 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: Order Comment: Speci men Type: BLOOD SPECIMENOrdering Facility: External Submitter Address: , , Performed By: #### 2 4323-8 ####[facility] [id number] [place] [address] [place] AST [Catalytic activity/Vol] 20 U/L Normal 13-35 [facility] 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: Order Comment: Speci men Type: BLOOD SPECIMENOrdering Facility: External Submitter Address: , , Performed By: #### 2 4323-8 ####[facility] [id number] [place] [address] [place] Bilirubin [Mass/Vol] 0.2 mg/dL Normal 0.2-1.3 [facility] 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: Order Comment: Speci men Type: BLOOD SPECIMENOrdering Facility: External Submitter Address: , , Performed By: #### 2 4323-8 ####[facility] [id number] [place] [address] [place] Calcium [Mass/Vol] 9.1 mg/dL Normal 8.5-10.2 [facility] 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: Order Comment: Speci men Type: BLOOD SPECIMENOrdering Facility: External Submitter Address: , , Performed By: #### 2 4323-8 ####[facility] [id number] [place] [address] [place] Chloride [Moles/Vol] 102 mmol/L Normal 98-107 [facility] 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: Order Comment: Speci men Type: BLOOD SPECIMENOrdering Facility: External Submitter Address: , , Performed By: #### 2 4323-8 ####[facility] [id number] [place] [address] [place] CO2 [Moles/Vol] 21 mmol/L Low 22-30 [facility] 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: Order Comment: Speci men Type: BLOOD SPECIMENOrdering Facility: External Submitter Address: , , Performed By: #### 2 4323-8 ####[facility] [id number] [place] [address] [place] Creatinine [Mass/Vol] 0.59 mg/dL Normal 0.58-0.96 [facility] 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: Order Comment: Mindy mcfarlane Type: BLOOD SPECIMENOrdering Facility: External Submitter Address: , , Performed By: #### 2 4323-8 ####[facility] [id number] [place] [address] [place] Creatinine and Glomerular filtration rate.predicted panel (S/P/Bld) 100 mL/min/1.73m??? Normal >=60 [facility] 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: Order Comment: Mindy mcfarlane Type: BLOOD SPECIMENOrdering Facility: External Submitter Address: , , Result Comment: Sonia mated Glomerular Filtration Rate (eGFR) is calculated using the 2020 CKD-EPI creatinine equation. This equation utilizes serum creatinine, sex, and age as parameters. The creatinine assay has traceable calibration to isotope dilution-mass spectrometry. Refer to KDIGO guidelines for clinical interpretation. In patients with unstable renal function, e.g. those with acute kidney injury, the eGFR may not accurately reflect actual GFR. Performed By: #### 2 4323-8 ####[facility] [id number] [place] [address] [place] Glucose [Mass/Vol] 106 mg/dL High 74-99 [facility] 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: Order Comment: Mindy denys Type: BLOOD SPECIMENOrdering Facility: External Submitter Address: , , Result Comment: The [place] Diabetes Association (ADA) provides guidance for cutoff values for fasting glucose and random glucose. The ADA defines fasting as no caloric intake for at least 8 hours. Fasting plasma glucose results between 100 to 125 mg/dL indicate increased risk for diabetes (prediabetes).Fasting plasma glucose results greater than or equal to 126 mg/dL meet the criteria for diagnosis of diabetes. In the absence of unequivocal hyperglycemia, results should be confirmed by repeat testing. In a patient with classic symptoms of hyperglycemia or hyperglycemic crisis, random plasma glucose results greater than or equal to 200 mg/dL meet the criteria for diagnosis of diabetes.Reference: Standards of Medical Care in Diabetes 2016, [place] [employer]. Diabetes Care. 2016.39(Suppl 1). Performed By: #### 2 4323-8 ####[facility] [id number] [place] [address] [place] Potassium [Moles/Vol] 4.2 mmol/L Normal 3.7-5.1 [facility] 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: Order Comment: Speci men Type: BLOOD SPECIMENOrdering Facility: External Submitter Address: , , Performed By: #### 2 4323-8 ####[facility] [id number] [place] [address] [place] Protein [Mass/Vol] 6.1 g/dL Low 6.3-8.0 [facility] 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: Order Comment: Speci men Type: BLOOD SPECIMENOrdering Facility: External Submitter Address: , , Performed By: #### 2 4323-8 ####[facility] [id number] [place] [address] [place] Sodium [Moles/Vol] 134 mmol/L Low 136-144 [facility] 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: Order Comment: Speci men Type: BLOOD SPECIMENOrdering Facility: External Submitter Address: , , Performed By: #### 2 4323-8 ####[facility] [id number] [place] [address] [place] Urea nitrogen [Mass/Vol] 9 mg/dL Normal 7-21 [facility] 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: Order Comment: Speci men Type: BLOOD SPECIMENOrdering Facility: External Submitter Address: , , Performed By: #### 2 4323-8 ####[facility] [id number] [place] [address] [place] Gastroenterology Visit Repor ton 01-14-2025 Gastroenterology Visit Report [facility] Gastroenterology [address] [place] [address] OFFICE VISIT Date of Service: 01/14/25 MR#: [id number] Acct: [id number] Name: MARIMAR WANG Rep #: [id number] : 1960 Provider: SINAI arriaza Age/Sex: 64/F Location: [facility] Status: Signed Intake Vital Signs 10/30/24 00:58 12/27/24 14:43 01/14/25 08:27 Height 5 ft 2 in 5 ft 2 in 5 ft 2 in Weight: 183 lb BMI 33.5 BP 167/84 H Respiration 20 H Pulse 74 Temp 97.6 F L Temp Source Temporal Pulse Oximetry (%) 96 Oxygen Delivery Method room air Intake Visit Reasons: FU Chief Complaint: Crohn's 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 Accompanied by: Self Is patient in pain?: No Allergies doxycycline calcium (From Vibramycin) Allergy (Verified 01/14/25 08:32) Anaphylaxis doxycycline hyclate (From Vibramycin) Allergy (Verified 01/14/25 08:32) Anaphylaxis doxycycline monohydrate (From Vibramycin) Allergy (Verified 01/14/25 08:32) Anaphylaxis NSAIDS (Non-Steroidal Anti-Inflamma Allergy (Verified 01/14/25 08:32) Anaphylaxis duloxetine (From Cymbalta) Adverse Reaction (Verified 01/14/25 08:32) HEADACHE AND UPSET STOMACH hydrocodone bitartrate (From Vicodin) Adverse Reaction (Verified 01/14/25 08:32) STOMACH UPSET hydromorphone HCl (From Dilaudid) Adverse Reaction (Verified 01/14/25 08:32) Vomiting morphine Adverse Reaction (Verified 01/14/25 08:32) Vomiting Medications ???Medication ???Instructions ???Recorded ???Confirmed ???Type albuterol sulfate 90 mcg/actuation 2 puff inhalation Q4H PRN PRN 01/14/25 History aerosol inhaler Shortness Of Breath fluoxetine 20 mg capsule 60 mg PO QHS MENTAL HEALTH 6 01/14/25 History peg 960-rwxgezwmqakw-cvaubft n 1 1 drp OP 4X/DAY DRY EYES 11/13/17 01/14/25 History %-0.2 %-0.2 % eye drops (Dry Eye Relief) leflunomide 20 mg tablet (Arava) 20 mg PO QHS RA 03/22/18 01/14/25 History amlodipine 5 mg tablet 7.5 mg PO QHS BP 08/15/22 01/14/25 History mometasone 50 mcg/actuation nasal 2 spray intranasal .QAM ALLERGIES 08/15/22 01/14/25 History spray ergocalciferol (vitamin D2) 1,250 1,250 mcg PO .EVERY OTHER WEEK 01/14/25 History mcg (50,000 unit) capsule (Vitamin SUPPELEMNT D2) mecobalamin (vitamin B12) 1,000 1,000 mcg sublingual QHS SUPPLEMEN T 12/06/22 01/14/25 History mcg disintegrating tablet,sublingual abatacept 50 mg/0.4 mL 50 mg subcut QMONTH RA 12/17/22 History subcutaneous syringe (Orencia) Held on 10/02/24. Instructions: due to chemo polyethylene glycol 3350 17 4 g PO PRN PRN Constipation 01/14/25 History gram/dose oral powder (Miralax) veuhmn-qhgzzesh-frufpes See Rx Instructions PO .COMPLEX 01/14/25 Rx 36,000-114,000-180,000 unit #300 caps capsule,delay rel (Creon) acetaminophen 500 mg tablet 1,000 mg PO Q6H PRN fever or pain 11/15/23 01/14/25 History atorvastatin 80 mg tablet 80 mg PO QHS 11/15/23 01/14/25 His tory meclizine 25 mg tablet 25 mg PO DAILY PRN PRN dizziness 0 03/17/24 01/14/25 History pantoprazole 40 mg tablet,delayed 40 mg PO DAILY #90 TABLETS 01/14/25 Rx release bupropion HCl (smoking deter) 150 150 mg PO QHS 09/02/24 01/14/25 H istory mg tablet,12 hr sustained-release(smokin g deterrent) dicyclomine 10 mg capsule 10 mg PO TID PRN for abdominal 01/14/25 Rx pain #90 caps apixaban 5 mg (74 tabs) tablets in 10 mg PO Q12H 10/24/24 01/14/25 History a dose pack (Eliquis DVT-PE Treat 30D Start) cholecalciferol (vitamin D3) 1,250 1,250 mcg PO DAILY 10/24/2412/27 History mcg (50,000 unit) capsule diphenhydramine HCl 12.5 mg/5 mL 25 mg PO Q4H PRN PRN mouth 5 01/14/25 History oral liquid irritation Held on 10/24/24. Instructions: sores healed furosemide 20 mg tablet 20 mg PO DAILY 10/24/24 01/14/25 H istory budesonide 3 mg 6 mg (2 x 3 mg) PO DAILY #60 caps 11/09/24 01/14/25 Rx capsule,delayed,extended release alprazolam 1 mg tablet 1 mg PO TID 30 days #90 tabs 12/0201/14/25 Rx promethazine 25 mg tablet 25 mg PO Q6H PRN PRN Nausea #60 01/14/25 Rx tabs hydrocodone-acetaminophe n 5-325mg 1 tab PO Q6H PRN PRN Pain 3 days 12/27/24 01/14/25 Rx 5mg-325mg #12 TABLETS loperamide 2 mg capsule (Imodium 2 mg PO Q6H PRN loose stool #360 0 01/14/25 01/14/25 Rx A-D) caps Have you fallen in the past year?: No [facility] Medical History 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 Normal [facility] HBV core Ab Ser Qlon 025 HBV core Ab Ql (S) Negative Normal Negative [facility] 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: Order Comment: Speci men Type: BLOOD SPECIMENOrdering Facility: External Submitter Address: , , Result Comment: No e vidence of current or past infection with Hepatitis B virus. Should recent infection be suspected, repeat testing may be considered 3-4 weeks after this draw. Performed By: #### 1 6933-4, 88480-5, 5195-3 ####[facility] LABCLIA [id number] [place] [address] [place] HBV surface Ab Ql (S)on 12-27 HBV surface Ab Qn (S) <8.00 Normal [facility] 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: Order Comment: Speci men Type: BLOOD SPECIMENOrdering Facility: External Submitter Address: , , Result Comment: <8 m IU/mL: No serological evidence of immunity to Hepatitis B Virus.>/= 8 to <12 mIU/mL: No serological evidence of immunity to Hepatitis B Virus.>/= 12 mIU/mL: Consistent with serological evidence of immunity to Hepatitis B Virus. Performed By: #### 1 6933-4, 64432-9, 5-3 ####[facility] LABCLIA [id number] [address] [place] HBV surface Ab Ser Qlon 12-27 HBV surface Ab Ql (S) Negative Normal [facility] 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: Order Comment: Speci men Type: BLOOD SPECIMENOrdering Facility: External Submitter Address: , , Result Comment: No s erological evidence of immunity to Hepatitis B Virus. Performed By: #### 1 6933-4, 69278-2, 5194-3 ####[facility] LABCLIA [id number] [place] [address] [place] HBV surface Ag Ser Qlon 12-27 HBV surface Ag Ql (S) Negative Normal Negative [facility] 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: Order Comment: Speci men Type: BLOOD SPECIMENOrdering Facility: External Submitter Address: , , Performed By: #### 1 6933-4, 62111-2, 5194-3 ####[facility] LABIA [id number] [place] [address] [place] Vit B12 SerPl-mCncon 025 Cobalamin (Vitamin B12) [Mass/Vol] 1301 pg/mL High 232-1245 [facility] 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: Order Comment: Speci men Type: BLOOD SPECIMENOrdering Facility: External Submitter Address: , , Performed By: #### 2 132-9, 1987-11 ####[facility] KENIA [id number] [place] [address] [place] CNPNon 01-05-2025 CNPN Normal [facility] Emergency Department Summary on 12-27-2024 Emergency Department Summary [facility] Department [address] [place] [address] Emergency Department Summary 12/27/24 MR#: [id number] Acct: [id number] Name: MARIMAR WANG Rep #: [id number] : 1960 64 From: Woo Thapa MD PCP: SINAI Arriola Status:DEP ER Location: ED HPI History of Present Illness Chief Complaint: Other, Pain/Inj Narrative Narrative: 64-year-old female with past medical history of rectal cancer s/p chemo and radiation, osteoporosis left hip replacement, presents with left buttock pain over the last few months. She is not sure exactly when it started. Pain is constant and is worse with sitting or moving. Does not radiate down the leg. She has no weakness or numbness or tingling. No saddle anesthesia. No bladder or bowel incontinence. She completed 1 month of radiation for rectal cancer on November 07, 2024. She is post to have an MRI of the area in the future. She denies recent fall or injury. She has no fever or chills. 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 Mass of anus Perirectal abscess History of Crohn's disease Psoriatic arthritis Psoriasis Internal derangement of right knee Wears glasses Post-menopausal Depression Anxiety Ambulates with cane Injury of back Difficulty swallowing History of IBS History of hiatal hernia Former smoker Shortness of breath on exertion Chronic cough History of echocardiogram History of stress test Hypertension Cardiology follow-up encounter History of CHF (congestive heart failure) History of irregular heartbeat Acute pharyngitis, unspecified URI (upper respiratory infection) Contact with or suspected exposure to other viral communicable disease History of partial replacement of left hip joint using bipolar prosthesis Vitamin D deficiency HLD (hyperlipidemia) Insomnia Dry eye Regular astigmatism, bilateral PVCs (premature ventricular contractions) Coronary artery stenosis Chronic diastolic CHF (congestive heart failure) Iron malabsorption Osteoarthritis Lumbar spondylosis Osteoporosis Congenital cataract Intermittent palpitations Nausea TIA (transient ischemic attack) Acute maxillary sinusitis, unspecified Acute ethmoidal sinusitis, unspecified Acute frontal sinusitis, unspecified COPD exacerbation Foreign body in conjunctival sac, left eye, initial encounter Acute bacterial conjunctivitis Influenza A Acute bronchitis Back pain Limb weakness Asthma Anemia Arthritis Home Medications ???Medication ???Instructions ???Recorded ???Last Taken ???Type albuterol sulfate 90 mcg/actuation 2 puff inhalation Q4H PRN PRN Unknown History aerosol inhaler Shortness Of Breath fluoxetine 20 mg capsule 60 mg PO QHS MENTAL HEALTH 6 09/01/24 History peg 439-ifrqyhxfacuq-hsbsown n 1 1 drp OP 4X/DAY DRY EYES 11/13/17 03/19/24 History %-0.2 %-0.2 % eye drops (Dry Eye Relief) leflunomide 20 mg tablet (Arava) 20 mg PO QHS RA 03/22/18 09/01/24 History amlodipine 5 mg tablet 7.5 mg PO QHS BP 08/15/22 09/01/24 History mometasone 50 mcg/actuation nasal 2 spray intranasal .QAM ALLERGIES 08/15/22 09/01/24 History spray ergocalciferol (vitamin D2) 1,250 1,250 mcg PO .EVERY OTHER WEEK 08/26/24 History mcg (50,000 unit) capsule (Vitamin SUPPELEMNT D2) mecobalamin (vitamin B12) 1,000 1,000 mcg sublingual QHS SUPPLEMEN T 12/06/22 09/01/24 History mcg disintegrating tablet,sublingual abatacept 50 mg/0.4 mL 50 mg subcut QMONTH RA 12/17/22 History subcutaneous syringe (Orencia) Held on 10/02/24. Instructions: due to chemo polyethylene glycol 3350 17 4 g PO PRN PRN Constipation Unknown History gram/dose oral powder (Miralax) cszvha-advmmxqr-lapqbwb See Rx Instructions PO .COMPLEX 09/01/24 Rx 36,000-114,000-180,000 unit #300 caps capsule,delay rel (Creon) acetaminophen 500 mg tablet 1,000 mg PO Q6H PRN fever or pain 11/15/23 09/01/24 History atorvastatin 80 mg tablet 80 mg PO QHS 11/15/23 09/01/24 His tory meclizine 25 mg tablet 25 mg PO DAILY PRN PRN dizziness 0 03/17/24 Unknown History pantoprazole 40 mg tablet,delayed 40 mg PO DAILY #90 TABLETS 09/01/24 Rx release bupropion HCl (smoking deter) 150 150 mg PO QHS 09/02/24 09/01/24 H istory mg tablet,12 hr sustained-release(smokin g deterrent) dicyclomine 10 mg capsule 10 mg PO TID PRN for abdominal Unknown Rx pain #90 caps apixaban 5 mg (74 tabs) tablets in 10 mg PO Q12H 10/24/24 Unknown H istory a dose pack (Eliquis DVT-PE Treat 30D Start) cholecalciferol (vitamin D3) 1,250 1,250 mcg PO DAILY 10/24/24 Unkn own History mcg (50,000 unit) capsule diphenhydramine HCl 1 (more content not included)... 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 One or more dose reduction techniques were used (e.g., Automated exposure control, adjustment of the mA and/or kV according to patient size, use of iterative reconstruction technique). RADIATION DOSE SUMMARY: CTDlvol: 14.83 mGy DLP: 533.27 mGycm COMPARISON: None. FINDINGS: Left hip total arthroplasty. No evidence of acute fracture or dislocation. Osseous demineralization. The peripheral soft tissues are unremarkable. No acute intrapelvic abnormalities. CT/Pelvis without IV Contrast IMPRESSION: No acute abnormalities. 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 12-04-2024 [facility] Telephone (RHBATH) -------- MARIMAR WANG ([id number]) 1960 F Date Time Provider Department 12/04/24 JENNIFER ARIAS During your visit today, we recorded the following information about you: Rosio Buck LPN 12/04/2024 3:49 PM Signed Message Received: 3 days ago Jennifer Arias MD Russell, Tina, LPN Let patient know that we will be resuming orencia in a few weeks and I am sending low dose pred course. Rosio Buck LPN 12/04/2024 3:49 PM Signed Patient notified and verbalized understanding. Patient asking if she can have her Orencia infusion on 12/10/2024 when she gets her Reclast infusion. CLIVE Levi Niharika, MD 12/07/2024 12:47 PM Signed yes Jennifer Arias MD 12/07/2024 12:48 PM Signed We were thinking to resume orencia in December. Thatwould be better. Can she postpone reclast to December too.? Rosio Buck LPN 12/08/2024 3:34 PM Signed Patient notified and verbalized understanding. Patient states she will reschedule both in December. Rosio Buck LPN Allergies As of Date: 12/04/2024 Noted Allergy Reaction CYMBALTA (DULOXETINE) 11/21/2023 5 - Intolerance Comments: Headaches NSAIDS (NON-STEROIDAL ANTI-INFLAM*04/16/2005 10 - Anaphylaxis Comments: Had anaphylactic reaction to Aleve VIBRAMYCIN (DOXYCYCLINE CALCIUM) 04/16/2005 10 - Anaphylaxis DILAUDID (HYDROMORPHONE (BULK)) 11/21/2023 11 - Vomiting MORPHINE 11/21/2023 11 - Vomiting HORSE/EQUINE CONTAINING PRODUCTS 11/28/2023 7 - Swelling VICODIN (HYDROCODONE-ACETAMINOPH E*11/21/2023 11 - Vomiting Comments: Can take if given antiemetic at same time Date Reviewed: 11/30/2024 Reviewed by: Delvin Ron APRN.TOBACCO SAMPLER - Fully Assessed Reason for Visit: Patient Update [1234] Prescriptions as of 12/08/2024 - predniSONE (DELTASONE) 5 mg tablet Take 1 tablet by mouth once daily. - prochlorperazine (COMPAZINE) 10 mg tablet Take 1 tablet by mouth every 6 hours as needed. - apixaban (ELIQUIS) 5 mg tab(s) Take 1 tablet by mouth two times a day. - miconazole (MONISTAT 7) 2 % vaginal cream Use 1 applicator vaginally daily at bedtime. - SSD 1 % cream APPLY TO AFFECTED AREA TWICE DAILY - nystatin (MYCOSTATIN) powder APPLY TO AFFECTED AREA. - lidocaine-prilocaine (EMLA) 2.5-2.5 % cream Apply to affected area as needed. Apply ample amount to port site 60 minutes prior to accessing. - potassium chloride (K-TAB) 10 mEq tablet Take 1 tablet by mouth two times a day. - zphhbzppdxZFUXR-ibcjtq-n idocaine (BMX 1:1:1) 1:1:1 liqd Take 10 mL by mouth every 4 hours as needed. - cholecalciferol, Vitamin D3, (VITAMIN D3) 1,250 mcg (50,000 unit) cap capsule Take 1 capsule by mouth every other week. - iv contrast (will be provided with radiology test) CT Chest W -Inject, intravenously, once for 1 dose.No IV access, insert saline lock prior to the beginning of sedation, infusion, injection of imaging exam. Discontinue saline lock post exam. If Pt. has a central line or IVAD, may access for administration according to line specific nursing protocol. Once exam is complete flush line and de-access according to line specific nursing protocol in the CT contrast administration guidelines link. - leflunomide (ARAVA) 20 mg tablet Take 1 tablet by mouth once daily - meclizine (ANTIVERT) 25 mg tab Take 25 mg by mouth three times a day as needed (for dizziness). - atorvastatin (LIPITOR) 80 mg tablet Take 80 mg by mouth once daily. - hgiabp-zupyjsxp-huqgtpt (CREON 36) 36,000-114,000- 180,000 unit delayed release capsule Take 1-3 capsules by mouth with meals and at bedtime. With snacks also - furosemide (LASIX) 20 mg tablet Take 20 mg by mouth once daily. - budesonide, enteric coated (ENTOCORT EC) 3 mg 24 hr capsule Take 2 capsules by mouth every afternoon. - pantoprazole DR (PROTONIX) 40 mg tablet Take 40 mg by mouth once daily. - dicyclomine (BENTYL) 20 mg tablet Take 10 mg by mouth three times a day. - VITAMIN B-12 1,000 mcg tab DISSOLVE 1 TABLET BY MOUTH ONCE DAILY - amLODIPine (NORVASC) 5 mg tablet Take 7.5 mg by mouth once daily. - clopidogrel (PLAVIX) 75 mg tablet Take 75 mg by mouth once daily. - FLUoxetine (PROZAC) 20 mg capsule Take 3 capsules by mouth once daily. - abatacept/maltose (ORENCIA, WITH MALTOSE, INTRAVENOUS) Inject intravenously. - albuterol HFA (VENTOLIN HFA) 90 mcg/actuation inhaler Inhale 2 Puffs as instructed every 4 hours as needed for wheezing/shortness of breath. - buPROPion XL (WELLBUTRIN XL) 150 mg 24 hr tablet Take 1 tablet by mouth once daily. - mometasone (NASONEX) 50 mcg/actuation nasal spray Use 2 Sprays in the nose once daily. Rinse mouth after use. - acetaminophen (TYLENOL) 325 mg tablet Take by mouth every 6 hours as needed. - albuterol (PROVENTIL) 2.5 mg /3 mL (0.083 %) nebulizer solution Use 3 mL via nebulizer every 6 hours as needed for Wheezing/Shortness of Breath (more content not included)... Normal [facility] CBC W/Diff, Automatedon PATH REV N/A Normal [facility] 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: Result Comment: Path ology review canceled due to updated review criteria. AMENDED REPORT 12/03/24 1202 PATH REV previously reported as: May Performed By: #### L 100.0100, L500.2500 #### [facility] [address] [place], [address] CBC W Auto Differential pane l (Bld)on 11-30-2024 Basophils (Bld) [#/Vol] 0.07 10*3/uL [facility] Basophils/100 WBC (Bld) 1.5 % [facility] Differential cell count method Nom (Bld) Auto [facility] Eosinophils (Bld) [#/Vol] 0.18 10*3/uL [facility] Eosinophils/100 WBC (Bld) 3.8 % [facility] Erythrocyte distribution width (RBC) [Ratio] 20.7 % High 11.5 - 15.0 % [facility] Hematocrit (Bld) [Volume fraction] 35 % Low 36.0 - 46.0 % [facility] Hemoglobin (Bld) [Mass/Vol] 11.2 g/dL Low 11.5 - 15.5 g/dL [facility] Immature granulocytes (Bld) [#/Vol] 0.03 10*3/uL [facility] Immature granulocytes/100 WBC (Bld) 0.6 % [facility] Interpretation and review of laboratory results Abnormal [facility] Lymphocytes (Bld) [#/Vol] 0.24 10*3/uL Low [facility] Lymphocytes/100 WBC (Bld) 5 % [facility] MCH (RBC) [Entitic mass] 28.9 pg 26.0 - 34.0 pg [facility] MCHC (RBC) [Mass/Vol] 32 g/dL 30.5 - 36.0 g/dL [facility] MCV (RBC) [Entitic vol] 90.2 fL 80.0 - 100.0 fL [facility] Monocytes (Bld) [#/Vol] 0.63 10*3/uL [facility] Monocytes/100 WBC (Bld) 13.1 % [facility] Neutrophils (Bld) [#/Vol] 3.65 10*3/uL [facility] Neutrophils/100 WBC (Bld) 76 % [facility] Nucleated RBC (Bld) [#/Vol] NINF [facility] Nucleated RBC/100 WBC (Bld) [Ratio] 0 % /100 WBC [facility] Platelet mean volume (Bld) [Entitic vol] 10 fL 9.0 - 12.7 fL [facility] Platelets (Bld) [#/Vol] 194 10*3/uL [facility] RBC (Bld) [#/Vol] 3.88 10*6/uL Low 3.90 - 5.2 0 m/uL [facility] WBC (Bld) [#/Vol] 4.8 10*3/uL [facility] Basophils (Bld) [#/Vol] 0.07 10*3/uL Normal <0.11 [facility] 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: Order Comment: Speci men Type: BLOOD SPECIMENOrdering Facility: [facility] Address: [address] [place] [address] Performed By: #### 5 7021-8 ####[facility] [id number] [place] [address] [place] Basophils/100 WBC (Bld) 1.5 % Normal [facility] 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: Order Comment: Speci men Type: BLOOD SPECIMENOrdering Facility: [facility] Address: [address] [place] [address] Performed By: #### 5 7021-8 ####[facility] [id number] [place] [address] [place] Differential cell count method Nom (Bld) Auto Normal [facility] 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: Order Comment: Speci men Type: BLOOD SPECIMENOrdering Facility: [facility] Address: [address] [place] [address] Performed By: #### 5 7021-8 ####[facility]ITALWCTLIA [id number] [place] [address] [place] Eosinophils (Bld) [#/Vol] 0.18 10*3/uL Normal <0.46 [facility] 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: Order Comment: Speci men Type: BLOOD SPECIMENOrdering Facility: [facility] Address: [address] [place] [address] Performed By: #### 5 7021-8 ####[facility] [id number] [place] [address] [place] Eosinophils/100 WBC (Bld) 3.8 % Normal [facility] 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: Order Comment: Speci men Type: BLOOD SPECIMENOrdering Facility: [facility] Address: [address] [place] [address] Performed By: #### 5 7021-8 ####[facility] [id number] [place] [address] [place] Erythrocyte distribution width (RBC) [Ratio] 20.7 % High 11.5-15.0 [facility] 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: Order Comment: Speci men Type: BLOOD SPECIMENOrdering Facility: [facility] Address: [address] [place] [address] Performed By: #### 5 7021-8 ####[facility] [id number] [place] [address] [place] Hematocrit (Bld) [Volume fraction] 35.0 % Low 36.0-46.0 [facility] 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: Order Comment: Speci men Type: BLOOD SPECIMENOrdering Facility: [facility] Address: [address] [place] [address] Performed By: #### 5 7021-8 ####[facility] SEBRINGNCLI [id number] [place] [address] [place] Hemoglobin (Bld) [Mass/Vol] 11.2 g/dL Low 11.5-15.5 [facility] 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: Order Comment: Speci men Type: BLOOD SPECIMENOrdering Facility: [facility] Address: [address] [place] [address] Performed By: #### 5 7021-8 ####[facility] [id number] [place] [address] [place] Immature granulocytes (Bld) [#/Vol] 0.03 10*3/uL Normal <0.10 [facility] 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: Order Comment: Speci men Type: BLOOD SPECIMENOrdering Facility: [facility] Address: [address] [place] [address] Performed By: #### 5 7021-8 ####[facility] [id number] [place] [address] [place] Immature granulocytes/100 WBC (Bld) 0.6 % Normal [facility] 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: Order Comment: Speci men Type: BLOOD SPECIMENOrdering Facility: [facility] Address: [address] [place] [address] Performed By: #### 5 7021-8 ####[facility] [id number] [place] [address] [place] Lymphocytes (Bld) [#/Vol] 0.24 10*3/uL Low 1.00-4.00 [facility] 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: Order Comment: Speci men Type: BLOOD SPECIMENOrdering Facility: [facility] Address: [address] [place] [address] Performed By: #### 5 7021-8 ####[facility] [id number] [place] [address] [place] Lymphocytes/100 WBC (Bld) 5.0 % Normal [facility] 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: Order Comment: Speci men Type: BLOOD SPECIMENOrdering Facility: [facility] Address: [address] [place] [address] Performed By: #### 5 7021-8 ####[facility] NINA [id number] [address] MCH (RBC) [Entitic mass] 28.9 pg Normal 26.0-34.0 [facility] 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: Order Comment: Speci men Type: BLOOD SPECIMENOrdering Facility: [facility] Address: [address] [place] [address] Performed By: #### 5 7021-8 ####[facility]INGZEVBLA[facility] [id number] [place] [address] [place] MCHC (RBC) [Mass/Vol] 32.0 g/dL Normal 30.5-36.0 [facility] 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: Order Comment: Speci men Type: BLOOD SPECIMENOrdering Facility: [facility] Address: [address] [place] [address] Performed By: #### 5 7021-8 ####[facility]ZEVFroy [id number] [place] [address] [place] MCV (RBC) [Entitic vol] 90.2 fL Normal 80.0-100.0 C [facility] 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: Order Comment: Speci men Type: BLOOD SPECIMENOrdering Facility: [facility] Address: [address] [place] [address] Performed By: #### 5 7021-8 ####[facility] [id number] [place] [address] [facility] [place] Monocytes (Bld) [#/Vol] 0.63 10*3/uL Normal <0.87 [facility] 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: Order Comment: Speci men Type: BLOOD SPECIMENOrdering Facility: [facility] Address: [address] [place] [address] Performed By: #### 5 7021-8 ####[facility] HOSPITALWNCLIA [id number] [place] [address] [place] Monocytes/100 WBC (Bld) 13.1 % Normal [facility] 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: Order Comment: Speci men Type: BLOOD SPECIMENOrdering Facility: [facility] Address: [address] [place] [address] Performed By: #### 5 7021-8 ####[facility]ENTERL[facility] [id number] [place] [address] [place] Neutrophils (Bld) [#/Vol] 3.65 10*3/uL Normal 1.45-7.50 [facility] 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: Order Comment: Speci men Type: BLOOD SPECIMENOrdering Facility: [facility] Address: [address] [place] [address] Performed By: #### 5 7021-8 ####[facility] [id number] [place] [address] [place] Neutrophils/100 WBC (Bld) 76.0 % Normal [facility] 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: Order Comment: Speci men Type: BLOOD SPECIMENOrdering Facility: [facility] Address: [address] [place] [address] Performed By: #### 5 7021-8 ####[facility]ENTERLIA [id number] [place] [address] [place] Nucleated RBC (Bld) [#/Vol] 10*3/uL Normal <0.01 [facility] 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: Order Comment: Speci men Type: BLOOD SPECIMENOrdering Facility: [facility] Address: [address] [place] [address] Performed By: #### 5 7021-8 ####[facility]INGNCL[facility] [id number] [place] [address] [place] Nucleated RBC/100 WBC (Bld) [Ratio] 0.0 /100 WBC Normal [facility] 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: Order Comment: Speci men Type: BLOOD SPECIMENOrdering Facility: [facility] Address: [address] [place] [address] Performed By: #### 5 7021-8 ####[facility] [id number] [place] [address] [place] Platelet mean volume (Bld) [Entitic vol] 10.0 fL Normal 9.0-12.7 [facility] 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: Order Comment: Speci men Type: BLOOD SPECIMENOrdering Facility: [facility] Address: [address] [place] [address] Performed By: #### 5 7021-8 ####[facility] [id number] [place] [address] [place] Platelets (Bld) [#/Vol] 194 10*3/uL Normal 150-400 [facility] 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: Order Comment: Speci men Type: BLOOD SPECIMENOrdering Facility: [facility] Address: [address] [place] [address] Performed By: #### 5 7021-8 ####[facility] [id number] [place] [address] [place] RBC (Bld) [#/Vol] 3.88 10*6/uL Low 3.90-5.20 [facility] 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: Order Comment: Speci men Type: BLOOD SPECIMENOrdering Facility: [facility] Address: [address] [place] [address] Performed By: #### 5 7021-8 ####[facility]NCL[facility] [id number] [place] [address] [place] WBC (Bld) [#/Vol] 4.80 10*3/uL Normal 3.70-11.00 [facility] 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: Order Comment: Speci men Type: BLOOD SPECIMENOrdering Facility: [facility] Address: [address] [place] [address] Performed By: #### 5 7021-8 ####[facility] RIGOBERTOMANINDER WOOD [id number] [place] [id number] [place] CNOVSPon 11-30-2024 CNOVSP Normal [facility] CNPNon 11-30-2024 CNPN Telephone (AKONCB) -------- MARIMAR WANG ([id number]) 1960 F Date Time Provider Department 11/30/24 [facility] PROVIDER LYN During your visit today, we recorded the following information about you: Kelly Cooley MA 11/30/2024 2:04 PM Signed I called and left a message to get patient set up for a reclast infusion ordered by Dr. Arias. EMILY Lin Sara, MA 12/02/2024 12:49 PM Signed Spoke with patient today and she prefers rigoberto and is going to reach out to them. Kelly Cooley MA Allergies As of Date: 11/30/2024 Noted Allergy Reaction CYMBALTA (DULOXETINE) 11/21/2023 5 - Intolerance Comments: Headaches NSAIDS (NON-STEROIDAL ANTI-INFLAM*04/16/2005 10 - Anaphylaxis Comments: Had anaphylactic reaction to Aleve VIBRAMYCIN (DOXYCYCLINE CALCIUM) 04/16/2005 10 - Anaphylaxis DILAUDID (HYDROMORPHONE (BULK)) 11/21/2023 11 - Vomiting MORPHINE 11/21/2023 11 - Vomiting HORSE/EQUINE CONTAINING PRODUCTS 11/28/2023 7 - Swelling VICODIN (HYDROCODONE-ACETAMINOPH E*11/21/2023 11 - Vomiting Comments: Can take if given antiemetic at same time Date Reviewed: 11/30/2024 Reviewed by: Delvin Ron APRN.TOBACCO SAMPLER - Fully Assessed Reason for Visit: Appointment [186] Cmt: Georget Prescriptions as of 12/02/2024 - iv contrast (will be provided with radiology test) MRI Pelvis Inject, intravenously, once for 1 dose. No IV access, insert saline lock prior to the beginning of sedation, infusion, injection of imaging exam. Discontinue saline lock post exam. If Pt has a central line or IVAD, may access for administration according to line specific nursing protocol. Once exam is complete flush line and de-access according to line specific nursing protocol in the MR contrast administration guidelines link. - predniSONE (DELTASONE) 5 mg tablet Take 1 tablet by mouth once daily. - prochlorperazine (COMPAZINE) 10 mg tablet Take 1 tablet by mouth every 6 hours as needed. - apixaban (ELIQUIS) 5 mg tab(s) Take 1 tablet by mouth two times a day. - miconazole (MONISTAT 7) 2 % vaginal cream Use 1 applicator vaginally daily at bedtime. - SSD 1 % cream APPLY TO AFFECTED AREA TWICE DAILY - nystatin (MYCOSTATIN) powder APPLY TO AFFECTED AREA. - lidocaine-prilocaine (EMLA) 2.5-2.5 % cream Apply to affected area as needed. Apply ample amount to port site 60 minutes prior to accessing. - potassium chloride (K-TAB) 10 mEq tablet Take 1 tablet by mouth two times a day. - vcsbgnmidnXHMSJ-fvfwse-h idocaine (BMX 1:1:1) 1:1:1 liqd Take 10 mL by mouth every 4 hours as needed. - cholecalciferol, Vitamin D3, (VITAMIN D3) 1,250 mcg (50,000 unit) cap capsule Take 1 capsule by mouth every other week. - iv contrast (will be provided with radiology test) CT Chest W -Inject, intravenously, once for 1 dose.No IV access, insert saline lock prior to the beginning of sedation, infusion, injection of imaging exam. Discontinue saline lock post exam. If Pt. has a central line or IVAD, may access for administration according to line specific nursing protocol. Once exam is complete flush line and de-access according to line specific nursing protocol in the CT contrast administration guidelines link. - leflunomide (ARAVA) 20 mg tablet Take 1 tablet by mouth once daily - meclizine (ANTIVERT) 25 mg tab Take 25 mg by mouth three times a day as needed (for dizziness). - atorvastatin (LIPITOR) 80 mg tablet Take 80 mg by mouth once daily. - adjihj-jtwfrorr-rrozokl (CREON 36) 36,000-114,000- 180,000 unit delayed release capsule Take 1-3 capsules by mouth with meals and at bedtime. With snacks also - furosemide (LASIX) 20 mg tablet Take 20 mg by mouth once daily. - budesonide, enteric coated (ENTOCORT EC) 3 mg 24 hr capsule Take 2 capsules by mouth every afternoon. - pantoprazole DR (PROTONIX) 40 mg tablet Take 40 mg by mouth once daily. - dicyclomine (BENTYL) 20 mg tablet Take 10 mg by mouth three times a day. - VITAMIN B-12 1,000 mcg tab DISSOLVE 1 TABLET BY MOUTH ONCE DAILY - amLODIPine (NORVASC) 5 mg tablet Take 7.5 mg by mouth once daily. - clopidogrel (PLAVIX) 75 mg tablet Take 75 mg by mouth once daily. - FLUoxetine (PROZAC) 20 mg capsule Take 3 capsules by mouth once daily. - abatacept/maltose (ORENCIA, WITH MALTOSE, INTRAVENOUS) Inject intravenously. - albuterol HFA (VENTOLIN HFA) 90 mcg/actuation inhaler Inhale 2 Puffs as instructed every 4 hours as needed for wheezing/shortness of breath. - buPROPion XL (WELLBUTRIN XL) 150 mg 24 hr tablet Take 1 tablet by mouth once daily. - mometasone (NASONEX) 50 mcg/actuation nasal spray Use 2 Sprays in the nose once daily. Rinse mouth after use. - acetaminophen (TYLENOL) 325 mg tablet Take by mouth every 6 hours as needed. - albuterol (PROVENTIL) 2.5 mg /3 mL (0.083 %) nebulizer solution Use 3 mL via nebulizer every 6 hours as needed for Wheezing/Shortness of Breat (more content not included)... Normal [facility] CNPN Normal [facility] metabolic 2000 panelOrdered By: Cyndie Zhou on 11-30-2024 Albumin [Mass/Vol] 3.5 g/dL Low 3.9 - 4.9 g/dL [facility] ALP [Catalytic activity/Vol] 73 U/L 34 - 123 U/L [facility] ALT [Catalytic activity/Vol] 10 U/L 7 - 38 U/L [facility] Anion gap [Moles/Vol] 9 mmol/L 8 - 15 mmol/L [facility] AST [Catalytic activity/Vol] 18 U/L 13 - 35 U/L [facility] Bilirubin [Mass/Vol] 0.2 mg/dL 0.2 - 1 .3 mg/dL [facility] Calcium [Mass/Vol] 9.2 mg/dL 8.5 - 10. 2 mg/dL [facility] Chloride [Moles/Vol] 98 mmol/L 98 - 10 7 mmol/L [facility] CO2 [Moles/Vol] 25 mmol/L 22 - 30 mmol/L [facility] Creatinine [Mass/Vol] 0.63 mg/dL 0.58 - 0.96 mg/dL [facility] GFR/1.73 sq M.predicted among non-blacks MDRD (S/P/Bld) [Vol rate/Area] 99 mL/min/{1.73_m2} - PINF [facility] 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: Estimated Glomerular Filtration Rate (eGFR) is calculated using the 2020 CKD-EPI creatinine equation. This equation utilizes serum creatinine, sex, and age as parameters. The creatinine assay has traceable calibration to isotope dilution-mass spectrometry. Refer to KDIGO guidelines for clinical interpretation. In patients with unstable renal function, e.g. those with acute kidney injury, the eGFR may not accurately reflect actual GFR. Glucose [Mass/Vol] 104 mg/dL High 74 - 99 mg/dL [facility] 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: The [place] [employer] Association (ADA) provides guidance for cutoff values for fasting glucose and random glucose. The ADA defines fasting as no caloric intake for at least 8 hours. Fasting plasma glucose results between 100 to 125 mg/dL indicate increased risk for diabetes (prediabetes). Fasting plasma glucose results greater than or equal to 126 mg/dL meet the criteria for diagnosis of diabetes. In the absence of unequivocal hyperglycemia, results should be confirmed by repeat testing. In a patient with classic symptoms of hyperglycemia or hyperglycemic crisis, random plasma glucose results greater than or equal to 200 mg/dL meet the criteria for diagnosis of diabetes. Reference: Standards of Medical Care in Diabetes 2016, [place] [employer]. Diabetes Care. 2016.39(Suppl 1). Interpretation and review of laboratory results Abnormal [facility] Potassium [Moles/Vol] 4.4 mmol/L 3.7 - 5.1 mmol/L [facility] Protein [Mass/Vol] 6.4 g/dL 6.3 - 8.0 g/dL [facility] Sodium [Moles/Vol] 132 mmol/L Low 136 - 144 mmol/L [facility] Urea nitrogen [Mass/Vol] 8 mg/dL 7 - 21 mg/dL [facility] Comprehensive metabolic 2000 panelon 11-30-2024 Albumin [Mass/Vol] 3.5 g/dL Low 3.9-4.9 [facility] 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: Order Comment: Speci men Type: BLOOD SPECIMENOrdering Facility: [facility] Address: [address] [place] [address] Performed By: #### 2 4323-8 ####[facility] [id number] [place] [address] [place] ALP [Catalytic activity/Vol] 73 U/L Normal 34-123 [facility] 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: Order Comment: Speci men Type: BLOOD SPECIMENOrdering Facility: [facility] Address: [address] [place] [address] Performed By: #### 2 4323-8 ####[facility] [id number] [place] [address] [place] ALT [Catalytic activity/Vol] 10 U/L Normal 7-38 [facility] 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: Order Comment: Speci men Type: BLOOD SPECIMENOrdering Facility: [facility] Address: [address] [place] [address] Performed By: #### 2 4323-8 ####[facility] [id number] [place] [address] [place] Anion gap [Moles/Vol] 9 mmol/L Normal 8-15 [facility] 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: Order Comment: Speci men Type: BLOOD SPECIMENOrdering Facility: [facility] Address: [address] [place] [address] Performed By: #### 2 4323-8 ####[facility] MILLTOWNCLIA [id number] [place] [address] [place] AST [Catalytic activity/Vol] 18 U/L Normal 13-35 [facility] 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: Order Comment: Speci men Type: BLOOD SPECIMENOrdering Facility: [facility] Address: [address] [place] [address] Performed By: #### 2 4323-8 ####[facility] MILLTOWNCLIA [id number] [place] [address] [place] Bilirubin [Mass/Vol] 0.2 mg/dL Normal 0.2-1.3 [facility] 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: Order Comment: Speci men Type: BLOOD SPECIMENOrdering Facility: [facility] [facility] Address: [address] [place] [address] Performed By: #### 2 4323-8 ####[facility] HOSPITALWCTLIA [id number] [place] [address] [place] Calcium [Mass/Vol] 9.2 mg/dL Normal 8.5-10.2 [facility] 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: Order Comment: Speci men Type: BLOOD SPECIMENOrdering Facility: [facility] [facility] Address: [address] [place] [address] Performed By: #### 2 4323-8 ####[facility] MILLTOWNCLIA [id number] [place] [address] [place] Chloride [Moles/Vol] 98 mmol/L Normal 98-107 [facility] 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: Order Comment: Speci men Type: BLOOD SPECIMENOrdering Facility: [facility] [facility] Address: [address] [place] [address] Performed By: #### 2 4323-8 ####[facility] MILLTOWNCLIA [id number] [place] [address] [place] CO2 [Moles/Vol] 25 mmol/L Normal 22-30 [facility] 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: Order Comment: Speci men Type: BLOOD SPECIMENOrdering Facility: [facility] [place] [facility] Address: [address] [place] [address] Performed By: #### 2 4323-8 ####[facility] SE[facility]INGNCLI [id number] [place] [address] [place] Creatinine [Mass/Vol] 0.63 mg/dL Normal 0.58-0.96 [facility] 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: Order Comment: Speci men Type: BLOOD SPECIMENOrdering Facility: [facility] [facility] Address: [address] [place] [address] Performed By: #### 2 4323-8 ####[facility] SEBRINGNCLIA [id number] [place] [address] [place] Creatinine and Glomerular filtration rate.predicted panel (S/P/Bld) 99 mL/min/1.73m??? Normal >=60 [facility] 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: Order Comment: Speci men Type: BLOOD SPECIMENOrdering Facility: [facility] [facility] Address: [address] [place] [address] Result Comment: Sonia mated Glomerular Filtration Rate (eGFR) is calculated using the 2020 CKD-EPI creatinine equation. This equation utilizes serum creatinine, sex, and age as parameters. The creatinine assay has traceable calibration to isotope dilution-mass spectrometry. Refer to KDIGO guidelines for clinical interpretation. In patients with unstable renal function, e.g. those with acute kidney injury, the eGFR may not accurately reflect actual GFR. Performed By: #### 2 4323-8 ####[facility] HOSPITALWNCLIA [id number] [place] [address] [place] Glucose [Mass/Vol] 104 mg/dL High 74-99 [facility] 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: Order Comment: Speci men Type: BLOOD SPECIMENOrdering Facility: [facility] Address: [address] [place] [address] Result Comment: The [place] Diabetes [employer] (ADA) provides guidance for cutoff values for fasting glucose and random glucose. The ADA defines fasting as no caloric intake for at least 8 hours. Fasting plasma glucose results between 100 to 125 mg/dL indicate increased risk for diabetes (prediabetes).Fasting plasma glucose results greater than or equal to 126 mg/dL meet the criteria for diagnosis of diabetes. In the absence of unequivocal hyperglycemia, results should be confirmed by repeat testing. In a patient with classic symptoms of hyperglycemia or hyperglycemic crisis, random plasma glucose results greater than or equal to 200 mg/dL meet the criteria for diagnosis of diabetes.Reference: Standards of Medical Care in Diabetes 2016, [place] [employer]. Diabetes Care. 2016.39(Suppl 1). Performed By: #### 2 4323-8 ####[facility] [id number] [place] [address] [place] Potassium [Moles/Vol] 4.4 mmol/L Normal 3.7-5.1 [facility] 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: Order Comment: Speci men Type: BLOOD SPECIMENOrdering Facility: [facility] Address: [address] [place] [address] Performed By: #### 2 4323-8 ####[facility] [id number] [place] [address] [place] Protein [Mass/Vol] 6.4 g/dL Normal 6.3-8.0 [facility] 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: Order Comment: Speci men Type: BLOOD SPECIMENOrdering Facility: [facility] Address: [address] [place], [place] [address] Performed By: #### 2 4323-8 ####[facility] [id number] [place] [address] [place] Sodium [Moles/Vol] 132 mmol/L Low 136-144 [facility] 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: Order Comment: Speci men Type: BLOOD SPECIMENOrdering Facility: [facility] Address: [address] [place] [address] Performed By: #### 2 4323-8 ####[facility] NABILZEVLIA [id number] [place] [address] [place] Urea nitrogen [Mass/Vol] 8 mg/dL Normal 7-21 [facility] 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: Order Comment: Speci men Type: BLOOD SPECIMENOrdering Facility: [facility] [facility] Address: [address] [place] [address] Performed By: #### 2 4323-8 ####[facility] ALYSSAKAREEMA [id number] [place] [address] [place] CBC W Auto Differential pane l (Bld)on 11-23-2024 Basophils (Bld) [#/Vol] 0.08 10*3/uL Normal <0.11 [facility] 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: Order Comment: Speci men Type: BLOOD SPECIMENOrdering Facility: [facility] Address: [address] [place] [address] Performed By: #### 5 7021-8 ####[facility] SEBRINGHAMLETA [id number] [place] [address] [place] Basophils/100 WBC (Bld) 2.1 % Normal C [facility] 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: Order Comment: Speci men Type: BLOOD SPECIMENOrdering Facility: [facility] [facility] Address: [address] [place] [address] Performed By: #### 5 7021-8 ####[facility] ALYSSAALEJANDRINALIA [id number] [address] STATES OF [facility] Differential cell count method Nom (Bld) Auto Normal [facility] 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: Order Comment: Speci men Type: BLOOD SPECIMENOrdering Facility: [facility] Address: [address] [place] [address] Performed By: #### 5 7021-8 ####[facility] CENTERLI [id number] [place] [address] [place] Eosinophils (Bld) [#/Vol] 0.07 10*3/uL Normal <0.46 [facility] 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: Order Comment: Speci men Type: BLOOD SPECIMENOrdering Facility: [facility] [facility] Address: [address] [place] [address] Performed By: #### 5 7021-8 ####[facility] [id number] [place] [address] [place] Eosinophils/100 WBC (Bld) 1.8 % Normal [facility] 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: Order Comment: Speci men Type: BLOOD SPECIMENOrdering Facility: [facility] Address: [address] [place] [address] Performed By: #### 5 7021-8 ####[facility] [id number] [place] [address] [place] Erythrocyte distribution width (RBC) [Ratio] 21.4 % High 11.5-15.0 [facility] 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: Order Comment: Speci men Type: BLOOD SPECIMENOrdering Facility: [facility] Address: [address] [place] [address] Performed By: #### 5 7021-8 ####[facility] [id number] [place] [address] [place] Hematocrit (Bld) [Volume fraction] 33.5 % Low 36.0-46.0 [facility] 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: Order Comment: Speci men Type: BLOOD SPECIMENOrdering Facility: [facility] Address: [address] [place] [address] Performed By: #### 5 7021-8 ####[facility] SEBRINGNCLI [id number] [place] [address] [place] Hemoglobin (Bld) [Mass/Vol] 10.8 g/dL Low 11.5-15.5 [facility] 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: Order Comment: Speci men Type: BLOOD SPECIMENOrdering Facility: [facility] Address: [address] [place] [address] Performed By: #### 5 7021-8 ####[facility] [id number] [place] [address] [place] Immature granulocytes (Bld) [#/Vol] 0.06 10*3/uL Normal <0.10 [facility] 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: Order Comment: Speci men Type: BLOOD SPECIMENOrdering Facility: [facility] Address: [address] [place] [address] Performed By: #### 5 7021-8 ####[facility] [id number] [place] [address] [place] Immature granulocytes/100 WBC (Bld) 1.6 % Normal [facility] 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: Order Comment: Speci men Type: BLOOD SPECIMENOrdering Facility: [facility] Address: [address] [place] [address] Performed By: #### 5 7021-8 ####[facility] [id number] [place] [address] [place] Lymphocytes (Bld) [#/Vol] 0.21 10*3/uL Low 1.00-4.00 [facility] 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: Order Comment: Speci men Type: BLOOD SPECIMENOrdering Facility: [facility] Address: [address] [place] [address] Performed By: #### 5 7021-8 ####[facility] [id number] [place] [address] [place] Lymphocytes/100 WBC (Bld) 5.5 % Normal [facility] 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: Order Comment: Speci men Type: BLOOD SPECIMENOrdering Facility: [facility] Address: [address] [place] [address] Performed By: #### 5 7021-8 ####[facility] ALYSSAJAZMYN [id number] [place] [address] [place] MCH (RBC) [Entitic mass] 28.6 pg Normal 26.0-34.0 [facility] 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: Order Comment: Speci men Type: BLOOD SPECIMENOrdering Facility: [facility] Address: [address] [place] [address] Performed By: #### 5 7021-8 ####[facility]BRINGZEVBL[facility] [id number] [place] [address] [place] MCHC (RBC) [Mass/Vol] 32.2 g/dL Normal 30.5-36.0 [facility] 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: Order Comment: Speci men Type: BLOOD SPECIMENOrdering Facility: [facility] Address: [address] [place] [address] Performed By: #### 5 7021-8 ####[facility] [id number] [place] [address] [place] MCV (RBC) [Entitic vol] 88.9 fL Normal 80.0-100.0 C [facility] 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: Order Comment: Speci men Type: BLOOD SPECIMENOrdering Facility: [facility] Address: [address] [place] [address] Performed By: #### 5 7021-8 ####[facility]ENTERLIA [id number] [place] [address] [place] Monocytes (Bld) [#/Vol] 0.62 10*3/uL Normal <0.87 [facility] 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: Order Comment: Speci men Type: BLOOD SPECIMENOrdering Facility: [facility] Address: [address] [place] [address] Performed By: #### 5 7021-8 ####[facility] ERWNCLIA [id number] [place] [address] [place] Monocytes/100 WBC (Bld) 16.2 % Normal [facility] 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: Order Comment: Speci men Type: BLOOD SPECIMENOrdering Facility: [facility] Address: [address] [place] [address] Performed By: #### 5 7021-8 ####[facility] [id number] [place] [address] [place] Neutrophils (Bld) [#/Vol] 2.78 10*3/uL Normal 1.45-7.50 [facility] 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: Order Comment: Speci men Type: BLOOD SPECIMENOrdering Facility: [facility] Address: [address] [place] [address] Performed By: #### 5 7021-8 ####[facility]A [id number] [place] [address] [place] Neutrophils/100 WBC (Bld) 72.8 % Normal [facility] 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: Order Comment: Speci men Type: BLOOD SPECIMENOrdering Facility: [facility] Address: [address] [place] [address] Performed By: #### 5 7021-8 ####[facility] [id number] [place] [address] [place] Nucleated RBC (Bld) [#/Vol] 10*3/uL Normal <0.01 [facility] 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: Order Comment: Speci men Type: BLOOD SPECIMENOrdering Facility: [facility] Address: [address] [place] [address] Performed By: #### 5 7021-8 ####[facility] SEBRINGNCLIA [id number] [place] [address] [place] Nucleated RBC/100 WBC (Bld) [Ratio] 0.0 /100 WBC Normal [facility] 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: Order Comment: Speci men Type: BLOOD SPECIMENOrdering Facility: [facility] Address: [address] [place] [address] Performed By: #### 5 7021-8 ####[facility]NCBL[facility] [id number] [place] [address] [place] Platelet mean volume (Bld) [Entitic vol] 9.9 fL Normal 9.0-12.7 [facility] 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: Order Comment: Speci men Type: BLOOD SPECIMENOrdering Facility: [facility] Address: [address] [place] [address] Performed By: #### 5 7021-8 ####[facility] [id number] [place] [address] [place] Platelets (Bld) [#/Vol] 210 10*3/uL Normal 150-400 [facility] 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: Order Comment: Speci men Type: BLOOD SPECIMENOrdering Facility: [facility] Address: [address] [place] [address] Performed By: #### 5 7021-8 ####[facility] [id number] [place] [address] [place] RBC (Bld) [#/Vol] 3.77 10*6/uL Low 3.90-5.20 [facility] 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: Order Comment: Speci men Type: BLOOD SPECIMENOrdering Facility: [facility] Address: [address] [place] [address] Performed By: #### 5 7021-8 ####[facility] [id number] [place] [address] [place] WBC (Bld) [#/Vol] 3.82 10*3/uL Normal 3.70-11.00 [facility] 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: Order Comment: Speci men Type: BLOOD SPECIMENOrdering Facility: [facility] Address: [address] [place] [address] Performed By: #### 5 7021-8 ####[facility] ALYSSAJamirHAMLETA [id number] [place] [address] [place] Comprehensive metabolic 2000 panelon 11-23-2024 Albumin [Mass/Vol] 3.6 g/dL Low 3.9-4.9 [facility] 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: Order Comment: Speci men Type: BLOOD SPECIMENOrdering Facility: [facility] Address: [address] [place] [address] Performed By: #### 2 4323-8 ####[facility] SEBRINGNICOLE [id number] [place] [address] [place] ALP [Catalytic activity/Vol] 68 U/L Normal 34-123 [facility] 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: Order Comment: Speci men Type: BLOOD SPECIMENOrdering Facility: [facility] Address: [address] [place] [address] Performed By: #### 2 4323-8 ####[facility] SEBRINGNICO[facility] [id number] [address] [place] ALT [Catalytic activity/Vol] 11 U/L Normal 7-38 [facility] 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: Order Comment: Speci men Type: BLOOD SPECIMENOrdering Facility: [facility] [facility] Address: [address] [place] [address] Performed By: #### 2 4323-8 ####[facility] SEBRINGZEVLIA [id number] [place] [address] [place] Anion gap [Moles/Vol] 9 mmol/L Normal 8-15 [facility] Comment on above: Order Comment: Speci men Type: BLOOD SPECIMENOrdering Facility: [facility] [facility] Address: [address] [place] [address] Performed By: #### 2 4323-8 ####[facility] MILLTOWNCLIA [id number] [place] [address] [place] AST [Catalytic activity/Vol] 17 U/L Normal 13-35 [facility] Comment on above: Order Comment: Speci men Type: BLOOD SPECIMENOrdering Facility: [facility] [facility] Address: [address] [place] [address] Performed By: #### 2 4323-8 ####[facility] MILLTOWNCLIA [id number] [place] [address] [place] Bilirubin [Mass/Vol] 0.2 mg/dL Normal 0.2-1.3 [facility] Comment on above: Order Comment: Speci men Type: BLOOD SPECIMENOrdering Facility: [facility] Address: [address] [place] [address] Performed By: #### 2 4323-8 ####[facility] ERTOWNCLIA [id number] [place] [address] [place] Calcium [Mass/Vol] 9.2 mg/dL Normal 8.5-10.2 [facility] Comment on above: Order Comment: Speci men Type: BLOOD SPECIMENOrdering Facility: [facility] [facility] Address: [address] [place] [address] Performed By: #### 2 4323-8 ####[facility] MILLTOWNCLIA [id number] [place] [address] [place] Chloride [Moles/Vol] 99 mmol/L Normal 98-107 [facility] Comment on above: Order Comment: Speci men Type: BLOOD SPECIMENOrdering Facility: [facility] [facility] Address: [address] [place] [address] Performed By: #### 2 4323-8 ####[facility] MILLTOWNCLIA [id number] [place] [address] [place] CO2 [Moles/Vol] 25 mmol/L Normal 22-30 [facility] Comment on above: Order Comment: Speci men Type: BLOOD SPECIMENOrdering Facility: [facility] [facility] Address: [address] [place] [address] Performed By: #### 2 4323-8 ####[facility] [id number] [place] [address] [place] Creatinine [Mass/Vol] 0.60 mg/dL Normal 0.58-0.96 [facility] Comment on above: Order Comment: Speci men Type: BLOOD SPECIMENOrdering Facility: [facility] Address: [address] [place] [address] Performed By: #### 2 4323-8 ####[facility] [id number] [place] [address] [place] Creatinine and Glomerular filtration rate.predicted panel (S/P/Bld) 100 mL/min/1.73m??? Normal >=60 [facility] Comment on above: Order Comment: Speci men Type: BLOOD SPECIMENOrdering Facility: [facility] [facility] Address: [address] [place] [address] Result Comment: Sonia mated Glomerular Filtration Rate (eGFR) is calculated using the 2020 CKD-EPI creatinine equation. This equation utilizes serum creatinine, sex, and age as parameters. The creatinine assay has traceable calibration to isotope dilution-mass spectrometry. Refer to KDIGO guidelines for clinical interpretation. In patients with unstable renal function, e.g. those with acute kidney injury, the eGFR may not accurately reflect actual GFR. Performed By: #### 2 4323-8 ####[facility] [id number] [place] [address] [place] Glucose [Mass/Vol] 99 mg/dL Normal 74-99 [facility] Comment on above: Order Comment: Speci men Type: BLOOD SPECIMENOrdering Facility: [facility] Address: [address] [place] [address] Result Comment: The [place] [employer] (ADA) provides guidance for cutoff values for fasting glucose and random glucose. The ADA defines fasting as no caloric intake for at least 8 hours. Fasting plasma glucose results between 100 to 125 mg/dL indicate increased risk for diabetes (prediabetes).Fasting plasma glucose results greater than or equal to 126 mg/dL meet the criteria for diagnosis of diabetes. In the absence of unequivocal hyperglycemia, results should be confirmed by repeat testing. In a patient with classic symptoms of hyperglycemia or hyperglycemic crisis, random plasma glucose results greater than or equal to 200 mg/dL meet the criteria for diagnosis of diabetes.Reference: Standards of Medical Care in Diabetes 2016, [place] [employer]. Diabetes Care. 2016.39(Suppl 1). Performed By: #### 2 4323-8 ####[facility]ZEVBL[facility] [id number] [place] [address] [place] Potassium [Moles/Vol] 4.1 mmol/L Normal 3.7-5.1 [facility] Comment on above: Order Comment: Speci men Type: BLOOD SPECIMENOrdering Facility: [facility] [facility] Address: [address] [place] [address] Performed By: #### 2 4323-8 ####[facility] [id number] [place] [address] [place] Protein [Mass/Vol] 6.4 g/dL Normal 6.3-8.0 [facility] Comment on above: Order Comment: Speci men Type: BLOOD SPECIMENOrdering Facility: [facility] [facility] Address: [address] [place] [address] Performed By: #### 2 4323-8 ####[facility] [id number] [place] [address] [place] Sodium [Moles/Vol] 133 mmol/L Low 136-144 [facility] Comment on above: Order Comment: Speci men Type: BLOOD SPECIMENOrdering Facility: [facility] [facility] Address: [address] [place] [address] Performed By: #### 2 4323-8 ####[facility]ITALWNCLIA [id number] [place] [address] [place] Urea nitrogen [Mass/Vol] 5 mg/dL Low - [facility] Comment on above: Order Comment: Speci men Type: BLOOD SPECIMENOrdering Facility: [facility] [facility] Address: [address] [place] [address] Performed By: #### 2 4323-8 ####[facility] [id number] [place] [address] [place] CNPNon 11-19-2024 CNPN Normal [facility] CBC W Auto Differential pane l (Bld)on 11-16-2024 Basophils (Bld) [#/Vol] 0.05 10*3/uL [facility] Basophils/100 WBC (Bld) 1.1 % [facility] Differential cell count method Nom (Bld) Auto [facility] Eosinophils (Bld) [#/Vol] 0.16 10*3/uL [facility] Eosinophils/100 WBC (Bld) 3.4 % [facility] Erythrocyte distribution width (RBC) [Ratio] 21.2 % High 11.5 - 15.0 % [facility] Hematocrit (Bld) [Volume fraction] 31.9 % Low 36.0 - 46.0 % [facility] Hemoglobin (Bld) [Mass/Vol] 10.2 g/dL Low 11.5 - 15.5 g/dL [facility] Immature granulocytes (Bld) [#/Vol] 0.03 10*3/uL [facility] Immature granulocytes/100 WBC (Bld) 0.6 % [facility] Interpretation and review of laboratory results Abnormal [facility] Lymphocytes (Bld) [#/Vol] 0.15 10*3/uL Low [facility] Lymphocytes/100 WBC (Bld) 3.2 % [facility] MCH (RBC) [Entitic mass] 28.2 pg 26.0 - 34.0 pg [facility] MCHC (RBC) [Mass/Vol] 32 g/dL 30.5 - 36.0 g/dL [facility] MCV (RBC) [Entitic vol] 88.1 fL 80.0 - 100.0 fL [facility] Monocytes (Bld) [#/Vol] 0.72 10*3/uL [facility] Monocytes/100 WBC (Bld) 15.5 % C [facility] Neutrophils (Bld) [#/Vol] 3.55 10*3/uL [facility] Neutrophils/100 WBC (Bld) 76.2 % [facility] Nucleated RBC (Bld) [#/Vol] NINF [facility] Nucleated RBC/100 WBC (Bld) [Ratio] 0 % /100 WBC [facility] Platelet mean volume (Bld) [Entitic vol] 9.3 fL 9.0 - 12.7 fL [facility] Platelets (Bld) [#/Vol] 173 10*3/uL [facility] RBC (Bld) [#/Vol] 3.62 10*6/uL Low 3.90 - 5.2 0 m/uL [facility] WBC (Bld) [#/Vol] 4.66 10*3/uL [facility] Basophils (Bld) [#/Vol] 0.05 10*3/uL Normal <0.11 [facility] Comment on above: Order Comment: Speci men Type: BLOOD SPECIMENOrdering Facility: [facility] Address: [address] [place] [address] Performed By: #### 5 7021-8 ####[facility] [id number] [place] [address] [place] Basophils/100 WBC (Bld) 1.1 % Normal [facility] Comment on above: Order Comment: Speci men Type: BLOOD SPECIMENOrdering Facility: [facility] Address: [address] [place] [address] Performed By: #### 5 7021-8 ####[facility] [id number] [place] [address] [place] Differential cell count method Nom (Bld) Auto Normal [facility] Comment on above: Order Comment: Speci men Type: BLOOD SPECIMENOrdering Facility: [facility] Address: [address] [place] [address] Performed By: #### 5 7021-8 ####[facility] MILLWNCLIA [id number] [place] [address] [place] Eosinophils (Bld) [#/Vol] 0.16 10*3/uL Normal <0.46 [facility] Comment on above: Order Comment: Speci men Type: BLOOD SPECIMENOrdering Facility: [facility] Address: [address] [place] [address] Performed By: #### 5 7021-8 ####[facility] SEBRINGNCLIA [id number] [place] [address] [place] Eosinophils/100 WBC (Bld) 3.4 % Normal [facility] Comment on above: Order Comment: Speci men Type: BLOOD SPECIMENOrdering Facility: [facility] Address: [address] [place] [address] Performed By: #### 5 7021-8 ####[facility] SEBRINGNCLIA [id number] [place] [address] [place] Erythrocyte distribution width (RBC) [Ratio] 21.2 % High 11.5-15.0 [facility] Comment on above: Order Comment: Speci men Type: BLOOD SPECIMENOrdering Facility: [facility] Address: [address] [place] [address] Performed By: #### 5 7021-8 ####[facility] SEBRINGNCLIA [id number] [place] [address] [place] Hematocrit (Bld) [Volume fraction] 31.9 % Low 36.0-46.0 [facility] Comment on above: Order Comment: Speci men Type: BLOOD SPECIMENOrdering Facility: [facility] Address: [address] [place] [address] Performed By: #### 5 7021-8 ####[facility] CENTERLIA [id number] [place] [address] [place] Hemoglobin (Bld) [Mass/Vol] 10.2 g/dL Low 11.5-15.5 [facility] Comment on above: Order Comment: Speci men Type: BLOOD SPECIMENOrdering Facility: [facility] Address: [address] [place] [address] Performed By: #### 5 7021-8 ####[facility] [id number] [place] [address] [place] Immature granulocytes (Bld) [#/Vol] 0.03 10*3/uL Normal <0.10 [facility] Comment on above: Order Comment: Speci men Type: BLOOD SPECIMENOrdering Facility: [facility] Address: [address] [place] [address] Performed By: #### 5 7021-8 ####[facility] [id number] [place] [address] [place] Immature granulocytes/100 WBC (Bld) 0.6 % Normal [facility] Comment on above: Order Comment: Speci men Type: BLOOD SPECIMENOrdering Facility: [facility] Address: [address] [place] [address] Performed By: #### 5 7021-8 ####[facility] [id number] [place] [address] [place] Lymphocytes (Bld) [#/Vol] 0.15 10*3/uL Low 1.00-4.00 [facility] Comment on above: Order Comment: Speci men Type: BLOOD SPECIMENOrdering Facility: [facility] Address: [address] [place] [address] Performed By: #### 5 7021-8 ####[facility] [id number] [place] [address] [place] Lymphocytes/100 WBC (Bld) 3.2 % Normal [facility] Comment on above: Order Comment: Speci men Type: BLOOD SPECIMENOrdering Facility: [facility] Address: [address] [place], [place] [address] Performed By: #### 5 7021-8 ####[facility] [id number] [place] [address] [place] MCH (RBC) [Entitic mass] 28.2 pg Normal 26.0-34.0 [facility] Comment on above: Order Comment: Speci men Type: BLOOD SPECIMENOrdering Facility: [facility] Address: [address] [place] [address] Performed By: #### 5 7021-8 ####[facility] [id number] [place] [address] [place] MCHC (RBC) [Mass/Vol] 32.0 g/dL Normal 30.5-36.0 [facility] Comment on above: Order Comment: Speci men Type: BLOOD SPECIMENOrdering Facility: [facility] Address: [address] [place] [address] Performed By: #### 5 7021-8 ####[facility] SEBRINGNCLIA [id number] [place] [address] [place] MCV (RBC) [Entitic vol] 88.1 fL Normal 80.0-100.0 C [facility] Comment on above: Order Comment: Speci men Type: BLOOD SPECIMENOrdering Facility: [facility] Address: [address] [place], [place] [address] Performed By: #### 5 7021-8 ####[facility] [id number] [address] [place] Monocytes (Bld) [#/Vol] 0.72 10*3/uL Normal <0.87 [facility] Comment on above: Order Comment: Speci men Type: BLOOD SPECIMENOrdering Facility: [facility] Address: [address] [place] [address] Performed By: #### 5 7021-8 ####[facility] MILLWNCLIA [id number] [place] [address] [place] Monocytes/100 WBC (Bld) 15.5 % Normal [facility] Comment on above: Order Comment: Speci men Type: BLOOD SPECIMENOrdering Facility: [facility] [facility] Address: [address] [place] [address] Performed By: #### 5 7021-8 ####[facility] SEBRINGNCLIA [id number] [place] [address] [place] Neutrophils (Bld) [#/Vol] 3.55 10*3/uL Normal 1.45-7.50 [facility] Comment on above: Order Comment: Speci men Type: BLOOD SPECIMENOrdering Facility: [facility] Address: [address] [place] [address] Performed By: #### 5 7021-8 ####[facility] SEBRINGNCLIA [id number] [address] [place] Neutrophils/100 WBC (Bld) 76.2 % Normal [facility] Comment on above: Order Comment: Speci men Type: BLOOD SPECIMENOrdering Facility: [facility] [facility] Address: [address] [place] [address] Performed By: #### 5 7021-8 ####[facility] SEBRINGNCLIA [id number] [place] [address] [place] Nucleated RBC (Bld) [#/Vol] 10*3/uL Normal <0.01 [facility] Comment on above: Order Comment: Speci men Type: BLOOD SPECIMENOrdering Facility: [facility] Address: [address] [place] [address] Performed By: #### 5 7021-8 ####[facility]ENTERLIA [id number] [place] [address] [place] Nucleated RBC/100 WBC (Bld) [Ratio] 0.0 /100 WBC Normal [facility] Comment on above: Order Comment: Speci men Type: BLOOD SPECIMENOrdering Facility: [facility] Address: [address] [place] [address] Performed By: #### 5 7021-8 ####[facility] SEBRINGZEVFroy [id number] [place] [address] [place] Platelet mean volume (Bld) [Entitic vol] 9.3 fL Normal 9.0-12.7 [facility] Comment on above: Order Comment: Speci men Type: BLOOD SPECIMENOrdering Facility: [facility] Address: [address] [place] [address] Performed By: #### 5 7021-8 ####[facility] [id number] [place] [address] [place] Platelets (Bld) [#/Vol] 173 10*3/uL Normal 150-400 [facility] Comment on above: Order Comment: Speci men Type: BLOOD SPECIMENOrdering Facility: [facility] Address: [address] [place] [address] Performed By: #### 5 7021-8 ####[facility] ALYSSAOCONTOHAMLETA [id number] [place] [address] [place] RBC (Bld) [#/Vol] 3.62 10*6/uL Low 3.90-5.20 [facility] Comment on above: Order Comment: Speci men Type: BLOOD SPECIMENOrdering Facility: [facility] Address: [address] [place] [address] Performed By: #### 5 7021-8 ####[facility] SEBRINGNCLI [id number] [place] [address] [place] WBC (Bld) [#/Vol] 4.66 10*3/uL Normal 3.70-11.00 [facility] Comment on above: Order Comment: Speci men Type: BLOOD SPECIMENOrdering Facility: [facility] Address: [address] [id number] Performed By: #### 5 7021-8 ####[facility] RIGOBERTO [facility]ENTERNCLIA [id number] [place] [address] [place] CNCNPATEDon 11-16-2024 CNCNPATED Normal [facility] Comprehensive metabolic 2000 panelOrdered By: Cyndie Zhou on 11-16-2024 Albumin [Mass/Vol] 3.5 g/dL Low 3.9 - 4.9 g/dL [facility] ALP [Catalytic activity/Vol] 63 U/L 34 - 123 U/L [facility] ALT [Catalytic activity/Vol] 9 U/L 7 - 38 U/L [facility] Anion gap [Moles/Vol] 8 mmol/L 8 - 15 mmol/L [facility] AST [Catalytic activity/Vol] 16 U/L 13 - 35 U/L [facility] Bilirubin [Mass/Vol] 0.2 mg/dL 0.2 - 1 .3 mg/dL [facility] Calcium [Mass/Vol] 9.2 mg/dL 8.5 - 10. 2 mg/dL [facility] Chloride [Moles/Vol] 99 mmol/L 98 - 10 7 mmol/L [facility] CO2 [Moles/Vol] 24 mmol/L 22 - 30 mmol/L [facility] Creatinine [Mass/Vol] 0.65 mg/dL 0.58 - 0.96 mg/dL [facility] GFR/1.73 sq M.predicted among non-blacks MDRD (S/P/Bld) [Vol rate/Area] 98 mL/min/{1.73_m2} - PINF [facility] Comment on above: Estimated Glomerular Filtration Rate (eGFR) is calculated using the 2020 CKD-EPI creatinine equation. This equation utilizes serum creatinine, sex, and age as parameters. The creatinine assay has traceable calibration to isotope dilution-mass spectrometry. Refer to KDIGO guidelines for clinical interpretation. In patients with unstable renal function, e.g. those with acute kidney injury, the eGFR may not accurately reflect actual GFR. Glucose [Mass/Vol] 106 mg/dL High 74 - 99 mg/dL [facility] Comment on above: The [place] Diab[employer] s Association (ADA) provides guidance for cutoff values for fasting glucose and random glucose. The ADA defines fasting as no caloric intake for at least 8 hours. Fasting plasma glucose results between 100 to 125 mg/dL indicate increased risk for diabetes (prediabetes). Fasting plasma glucose results greater than or equal to 126 mg/dL meet the criteria for diagnosis of diabetes. In the absence of unequivocal hyperglycemia, results should be confirmed by repeat testing. In a patient with classic symptoms of hyperglycemia or hyperglycemic crisis, random plasma glucose results greater than or equal to 200 mg/dL meet the criteria for diagnosis of diabetes. Reference: Standards of Medical Care in Diabetes 2016, [place] [employer]. Diabetes Care. 2016.39(Suppl 1). Interpretation and review of laboratory results Abnormal [facility] Potassium [Moles/Vol] 4 mmol/L 3.7 - 5.1 mmol/L [facility] Protein [Mass/Vol] 6.4 g/dL 6.3 - 8.0 g/dL [facility] Sodium [Moles/Vol] 131 mmol/L Low 136 - 144 mmol/L [facility] Urea nitrogen [Mass/Vol] 12 mg/dL 7 - 21 mg/dL [facility] Comprehensive metabolic 2000 panelon 11-16-2024 Albumin [Mass/Vol] 3.5 g/dL Low 3.9-4.9 [facility] Comment on above: Order Comment: Speci men Type: BLOOD SPECIMENOrdering Facility: [facility] Address: [address] [place] [address] Performed By: #### 2 4323-8 ####[facility] [id number] [place] [address] [place] ALP [Catalytic activity/Vol] 63 U/L Normal 34-123 [facility] Comment on above: Order Comment: Speci men Type: BLOOD SPECIMENOrdering Facility: [facility] Address: [address] [place] [address] Performed By: #### 2 4323-8 ####[facility] CENTERLIA [id number] [place] [address] [place] ALT [Catalytic activity/Vol] 9 U/L Normal 7-38 [facility] Comment on above: Order Comment: Speci men Type: BLOOD SPECIMENOrdering Facility: [facility] Address: [address] [place] [address] Performed By: #### 2 4323-8 ####[facility] RIGOBERTO MILLTOWNCLIA [id number] [place] [address] [place] Anion gap [Moles/Vol] 8 mmol/L Normal 8-15 [facility] Comment on above: Order Comment: Speci men Type: BLOOD SPECIMENOrdering Facility: [facility] Address: [address] [place] [address] Performed By: #### 2 4323-8 ####[facility] SEBRINGNCLIA [id number] [place] [address] [place] AST [Catalytic activity/Vol] 16 U/L Normal 13-35 [facility] Comment on above: Order Comment: Speci men Type: BLOOD SPECIMENOrdering Facility: [facility] Address: [address] [place] [address] Performed By: #### 2 4323-8 ####[facility] HOSPITALWNCLIA [id number] [place] [address] [place] Bilirubin [Mass/Vol] 0.2 mg/dL Normal 0.2-1.3 [facility] Comment on above: Order Comment: Speci men Type: BLOOD SPECIMENOrdering Facility: [facility] Address: [address] [place] [address] Performed By: #### 2 4323-8 ####[facility] MILLTOWNCLIA [id number] [place] [address] [place] Calcium [Mass/Vol] 9.2 mg/dL Normal 8.5-10.2 [facility] Comment on above: Order Comment: Speci men Type: BLOOD SPECIMENOrdering Facility: [facility] Address: [address] [place] [address] Performed By: #### 2 4323-8 ####[facility] SEBRINGNCLIA [id number] [place] [address] [place] Chloride [Moles/Vol] 99 mmol/L Normal 98-107 [facility] Comment on above: Order Comment: Speci men Type: BLOOD SPECIMENOrdering Facility: [facility] Address: [address] [place] [address] Performed By: #### 2 4323-8 ####[facility] SEBRINGNCLIA [id number] [place] [address] [place] CO2 [Moles/Vol] 24 mmol/L Normal 22-30 [facility] Comment on above: Order Comment: Speci men Type: BLOOD SPECIMENOrdering Facility: [facility] Address: [address] [place] [address] Performed By: #### 2 4323-8 ####[facility] SEBRINGNCA [id number] [place] [address] [place] Creatinine [Mass/Vol] 0.65 mg/dL Normal 0.58-0.96 [facility] Comment on above: Order Comment: Speci men Type: BLOOD SPECIMENOrdering Facility: [facility] Address: [address] [place] [address] Performed By: #### 2 4323-8 ####[facility] SEBRINGNCLIA [id number] [place] [address] [place] Creatinine and Glomerular filtration rate.predicted panel (S/P/Bld) 98 mL/min/1.73m??? Normal >=60 [facility] Comment on above: Order Comment: Speci men Type: BLOOD SPECIMENOrdering Facility: [facility] Address: [address] [place] [address] Result Comment: Sonia mated Glomerular Filtration Rate (eGFR) is calculated using the 2020 CKD-EPI creatinine equation. This equation utilizes serum creatinine, sex, and age as parameters. The creatinine assay has traceable calibration to isotope dilution-mass spectrometry. Refer to KDIGO guidelines for clinical interpretation. In patients with unstable renal function, e.g. those with acute kidney injury, the eGFR may not accurately reflect actual GFR. Performed By: #### 2 4323-8 ####[facility] [id number] [place] [address] [place] Glucose [Mass/Vol] 106 mg/dL High 74-99 [facility] Comment on above: Order Comment: Mindy mcfarlane Type: BLOOD SPECIMENOrdering Facility: [facility] Address: [address] [place] [address] Result Comment: The [place] Diabetes Association (ADA) provides guidance for cutoff values for fasting glucose and random glucose. The ADA defines fasting as no caloric intake for at least 8 hours. Fasting plasma glucose results between 100 to 125 mg/dL indicate increased risk for diabetes (prediabetes).Fasting plasma glucose results greater than or equal to 126 mg/dL meet the criteria for diagnosis of diabetes. In the absence of unequivocal hyperglycemia, results should be confirmed by repeat testing. In a patient with classic symptoms of hyperglycemia or hyperglycemic crisis, random plasma glucose results greater than or equal to 200 mg/dL meet the criteria for diagnosis of diabetes.Reference: Standards of Medical Care in Diabetes 2016, [place] [employer]. Diabetes Care. 2016.39(Suppl 1). Performed By: #### 2 4323-8 ####[facility]ENTERA [id number] [place] [address] [place] Potassium [Moles/Vol] 4.0 mmol/L Normal 3.7-5.1 [facility] Comment on above: Order Comment: Mindy mcfarlane Type: BLOOD SPECIMENOrdering Facility: [facility] Address: [address] [place] [address] Performed By: #### 2 4323-8 ####[facility] [id number] [place] [address] [place] Protein [Mass/Vol] 6.4 g/dL Normal 6.3-8.0 [facility] Comment on above: Order Comment: Speci men Type: BLOOD SPECIMENOrdering Facility: [facility] [facility] Address: [address] [place] [address] Performed By: #### 2 4323-8 ####[facility] MILLWNICOLE [id number] [place] [address] [place] Sodium [Moles/Vol] 131 mmol/L Low 136-144 [facility] Comment on above: Order Comment: Speci men Type: BLOOD SPECIMENOrdering Facility: [facility] Address: [address] [place] [address] Performed By: #### 2 4323-8 ####[facility] ALYSSAJAZMYN [id number] [place] [address] [place] Urea nitrogen [Mass/Vol] 12 mg/dL Normal 7-21 [facility] Comment on above: Order Comment: Speci men Type: BLOOD SPECIMENOrdering Facility: [facility] [facility] Address: [address] [place] [address] Performed By: #### 2 4323-8 ####[facility]ENTERLIA [id number] [place] [address] [place] CNOVon 11-10-2024 CNOV Normal [facility] CBC W Auto Differential pane l (Bld)on 11-09-2024 Basophils (Bld) [#/Vol] 0.03 10*3/uL [facility] Basophils/100 WBC (Bld) 1.1 % [facility] Differential cell count method Nom (Bld) Auto [facility] Eosinophils (Bld) [#/Vol] 0.09 10*3/uL [facility] Eosinophils/100 WBC (Bld) 3.4 % [facility] Erythrocyte distribution width (RBC) [Ratio] 20.2 % High 11.5 - 15.0 % [facility] Hematocrit (Bld) [Volume fraction] 32.4 % Low 36.0 - 46.0 % [facility] Hemoglobin (Bld) [Mass/Vol] 10.6 g/dL Low 11.5 - 15.5 g/dL [facility] Immature granulocytes (Bld) [#/Vol] NINF [facility] Immature granulocytes/100 WBC (Bld) 0.8 % [facility] Interpretation and review of laboratory results Abnormal [facility] Lymphocytes (Bld) [#/Vol] 0.17 10*3/uL Low [facility] Lymphocytes/100 WBC (Bld) 6.5 % [facility] MCH (RBC) [Entitic mass] 28.3 pg 26.0 - 34.0 pg [facility] MCHC (RBC) [Mass/Vol] 32.7 g/dL 30.5 - 36.0 g/dL [facility] MCV (RBC) [Entitic vol] 86.6 fL 80.0 - 100.0 fL [facility] Monocytes (Bld) [#/Vol] 0.25 10*3/uL [facility] Monocytes/100 WBC (Bld) 9.6 % C [facility] Neutrophils (Bld) [#/Vol] 2.05 10*3/uL [facility] Neutrophils/100 WBC (Bld) 78.6 % [facility] Nucleated RBC (Bld) [#/Vol] [facility] Nucleated RBC/100 WBC (Bld) [Ratio] 0 % /100 WBC [facility] Platelet mean volume (Bld) [Entitic vol] 9.9 fL 9.0 - 12.7 fL [facility] Platelets (Bld) [#/Vol] 219 10*3/uL [facility] RBC (Bld) [#/Vol] 3.74 10*6/uL Low 3.90 - 5.2 0 m/uL [facility] WBC (Bld) [#/Vol] 2.61 10*3/uL Low [facility] Basophils (Bld) [#/Vol] 0.03 10*3/uL Normal <0.11 [facility] Comment on above: Order Comment: Speci men Type: BLOOD SPECIMENOrdering Facility: [facility] Address: [address] [place] [address] Performed By: #### 5 7021-8 ####[facility] MILLWNCLIA [id number] [place] [address] [place] Basophils/100 WBC (Bld) 1.1 % Normal [facility] Comment on above: Order Comment: Speci men Type: BLOOD SPECIMENOrdering Facility: [facility] [facility] Address: [address] [place] [address] Performed By: #### 5 7021-8 ####[facility]ENTERLIA [id number] [place] [address] [place] Differential cell count method Nom (Bld) Auto Normal [facility] Comment on above: Order Comment: Speci men Type: BLOOD SPECIMENOrdering Facility: [facility] Address: [address] [place] [address] Performed By: #### 5 7021-8 ####[facility]ENTERA [id number] [place] [address] [place] Eosinophils (Bld) [#/Vol] 0.09 10*3/uL Normal <0.46 [facility] Comment on above: Order Comment: Speci men Type: BLOOD SPECIMENOrdering Facility: [facility] Address: [address] [place] [address] Performed By: #### 5 7021-8 ####[facility]ENTERA [id number] [place] [address] [place] Eosinophils/100 WBC (Bld) 3.4 % Normal [facility] Comment on above: Order Comment: Speci men Type: BLOOD SPECIMENOrdering Facility: [facility] Address: [address] [place] [address] Performed By: #### 5 7021-8 ####[facility] SEBRINGNCLIA [id number] [place] [address] [place] Erythrocyte distribution width (RBC) [Ratio] 20.2 % High 11.5-15.0 [facility] Comment on above: Order Comment: Speci men Type: BLOOD SPECIMENOrdering Facility: [facility] Address: [address] [place] [address] Performed By: #### 5 7021-8 ####[facility] [id number] [place] [address] [place] Hematocrit (Bld) [Volume fraction] 32.4 % Low 36.0-46.0 [facility] Comment on above: Order Comment: Speci men Type: BLOOD SPECIMENOrdering Facility: [facility] Address: [address] [place] [address] Performed By: #### 5 7021-8 ####[facility] [id number] [place] [address] [place] Hemoglobin (Bld) [Mass/Vol] 10.6 g/dL Low 11.5-15.5 [facility] Comment on above: Order Comment: Speci men Type: BLOOD SPECIMENOrdering Facility: [facility] Address: [address] [place] [address] Performed By: #### 5 7021-8 ####[facility] [id number] [place] [address] [place] Immature granulocytes (Bld) [#/Vol] 10*3/uL Normal <0.10 [facility] Comment on above: Order Comment: Speci men Type: BLOOD SPECIMENOrdering Facility: [facility] Address: [address] [place] [address] Performed By: #### 5 7021-8 ####[facility] [id number] [place] [address] [place] Immature granulocytes/100 WBC (Bld) 0.8 % Normal [facility] Comment on above: Order Comment: Speci men Type: BLOOD SPECIMENOrdering Facility: [facility] Address: [address] [place] [address] Performed By: #### 5 7021-8 ####[facility] [id number] [place] [address] [place] Lymphocytes (Bld) [#/Vol] 0.17 10*3/uL Low 1.00-4.00 [facility] Comment on above: Order Comment: Speci men Type: BLOOD SPECIMENOrdering Facility: [facility] Address: [address] [place] [address] Performed By: #### 5 7021-8 ####[facility] [id number] [place] [address] [place] Lymphocytes/100 WBC (Bld) 6.5 % Normal [facility] Comment on above: Order Comment: Speci men Type: BLOOD SPECIMENOrdering Facility: [facility] Address: [address] [place] [address] Performed By: #### 5 7021-8 ####[facility] [id number] [place] [address] [place] MCH (RBC) [Entitic mass] 28.3 pg Normal 26.0-34.0 [facility] Comment on above: Order Comment: Speci men Type: BLOOD SPECIMENOrdering Facility: [facility] Address: [address] [place] [address] Performed By: #### 5 7021-8 ####[facility] [id number] [place] [address] [place] MCHC (RBC) [Mass/Vol] 32.7 g/dL Normal 30.5-36.0 [facility] Comment on above: Order Comment: Speci men Type: BLOOD SPECIMENOrdering Facility: [facility] Address: [address] [place] [address] Performed By: #### 5 7021-8 ####[facility] ERWNCLIA [id number] [place] [address] [place] MCV (RBC) [Entitic vol] 86.6 fL Normal 80.0-100.0 C [facility] Comment on above: Order Comment: Speci men Type: BLOOD SPECIMENOrdering Facility: [facility] Address: [address] [place] [address] Performed By: #### 5 7021-8 ####[facility] [id number] [place] [address] [place] Monocytes (Bld) [#/Vol] 0.25 10*3/uL Normal <0.87 [facility] Comment on above: Order Comment: Speci men Type: BLOOD SPECIMENOrdering Facility: [facility] Address: [address] [place] [address] Performed By: #### 5 7021-8 ####[facility] [id number] [place] [address] [place] Monocytes/100 WBC (Bld) 9.6 % Normal C [facility] Comment on above: Order Comment: Speci men Type: BLOOD SPECIMENOrdering Facility: [facility] Address: [address] [place] [address] Performed By: #### 5 7021-8 ####[facility] [id number] [place] [address] [place] Neutrophils (Bld) [#/Vol] 2.05 10*3/uL Normal 1.45-7.50 [facility] Comment on above: Order Comment: Speci men Type: BLOOD SPECIMENOrdering Facility: [facility] Address: [address] [place] [address] Performed By: #### 5 7021-8 ####[facility] [id number] [place] [address] [place] Neutrophils/100 WBC (Bld) 78.6 % Normal [facility] Comment on above: Order Comment: Speci men Type: BLOOD SPECIMENOrdering Facility: [facility] Address: [address] [place] [address] Performed By: #### 5 7021-8 ####[facility] [id number] [place] [address] [place] Nucleated RBC (Bld) [#/Vol] 10*3/uL Normal <0.01 [facility] Comment on above: Order Comment: Speci men Type: BLOOD SPECIMENOrdering Facility: [facility] Address: [address] [place] [address] Performed By: #### 5 7021-8 ####[facility] [id number] [place] [address] [place] Nucleated RBC/100 WBC (Bld) [Ratio] 0.0 /100 WBC Normal [facility] Comment on above: Order Comment: Speci men Type: BLOOD SPECIMENOrdering Facility: [facility] Address: [address] [place] [address] Performed By: #### 5 7021-8 ####[facility] [id number] [place] [address] [place] Platelet mean volume (Bld) [Entitic vol] 9.9 fL Normal 9.0-12.7 [facility] Comment on above: Order Comment: Speci men Type: BLOOD SPECIMENOrdering Facility: [facility] Address: [address] [place] [address] Performed By: #### 5 7021-8 ####[facility] [id number] [place] [address] [place] Platelets (Bld) [#/Vol] 219 10*3/uL Normal 150-400 [facility] Comment on above: Order Comment: Speci men Type: BLOOD SPECIMENOrdering Facility: [facility] Address: [address] [place] [address] Performed By: #### 5 7021-8 ####[facility] ALYSSAOCONTONCLIA [id number] [place] [address] [place] RBC (Bld) [#/Vol] 3.74 10*6/uL Low 3.90-5.20 [facility] Comment on above: Order Comment: Speci men Type: BLOOD SPECIMENOrdering Facility: [facility] Address: [address] [place] [address] Performed By: #### 5 7021-8 ####[facility] ALYSSAOCONTONCLIA [id number] [place] [address] [place] WBC (Bld) [#/Vol] 2.61 10*3/uL Low 3.70-11.00 [facility] Comment on above: Order Comment: Speci men Type: BLOOD SPECIMENOrdering Facility: [facility] Address: [address] [place] [address] Performed By: #### 5 7021-8 ####[facility] [id number] [place] [address] [place] CNOVSPon 11-09-2024 CNOVSP Normal [facility] metabolic 2000 panelOrdered By: Frannie Puente on 11-09-2024 Albumin [Mass/Vol] 3.7 g/dL Low 3.9 - 4.9 g/dL [facility] ALP [Catalytic activity/Vol] 68 U/L 34 - 123 U/L [facility] ALT [Catalytic activity/Vol] 13 U/L 7 - 38 U/L [facility] Anion gap [Moles/Vol] 11 mmol/L 8 - 15 mmol/L [facility] AST [Catalytic activity/Vol] 15 U/L 13 - 35 U/L [facility] Bilirubin [Mass/Vol] 0.2 mg/dL 0.2 - 1 .3 mg/dL [facility] Calcium [Mass/Vol] 9.7 mg/dL 8.5 - 10. 2 mg/dL [facility] Chloride [Moles/Vol] 98 mmol/L 98 - 10 7 mmol/L [facility] CO2 [Moles/Vol] 24 mmol/L 22 - 30 mmol/L [facility] Creatinine [Mass/Vol] 0.64 mg/dL 0.58 - 0.96 mg/dL [facility] GFR/1.73 sq M.predicted among non-blacks MDRD (S/P/Bld) [Vol rate/Area] 98 mL/min/{1.73_m2} - PINF [facility] Comment on above: Estimated Glomerular Filtration Rate (eGFR) is calculated using the 2020 CKD-EPI creatinine equation. This equation utilizes serum creatinine, sex, and age as parameters. The creatinine assay has traceable calibration to isotope dilution-mass spectrometry. Refer to KDIGO guidelines for clinical interpretation. In patients with unstable renal function, e.g. those with acute kidney injury, the eGFR may not accurately reflect actual GFR. Glucose [Mass/Vol] 103 mg/dL High 74 - 99 mg/dL [facility] Comment on above: The [place] Diab[employer] s Association (ADA) provides guidance for cutoff values for fasting glucose and random glucose. The ADA defines fasting as no caloric intake for at least 8 hours. Fasting plasma glucose results between 100 to 125 mg/dL indicate increased risk for diabetes (prediabetes). Fasting plasma glucose results greater than or equal to 126 mg/dL meet the criteria for diagnosis of diabetes. In the absence of unequivocal hyperglycemia, results should be confirmed by repeat testing. In a patient with classic symptoms of hyperglycemia or hyperglycemic crisis, random plasma glucose results greater than or equal to 200 mg/dL meet the criteria for diagnosis of diabetes. Reference: Standards of Medical Care in Diabetes 2016, [place] [employer] Association. Diabetes Care. 2016.39(Suppl 1). Interpretation and review of laboratory results Abnormal [facility] Potassium [Moles/Vol] 4.1 mmol/L 3.7 - 5.1 mmol/L [facility] Protein [Mass/Vol] 6.5 g/dL 6.3 - 8.0 g/dL [facility] Sodium [Moles/Vol] 133 mmol/L Low 136 - 144 mmol/L [facility] Urea nitrogen [Mass/Vol] 15 mg/dL 7 - 21 mg/dL [facility] Comprehensive metabolic 2000 panelon 11-09-2024 Albumin [Mass/Vol] 3.7 g/dL Low 3.9-4.9 [facility] Comment on above: Order Comment: Speci men Type: BLOOD SPECIMENOrdering Facility: [facility] Address: [address] [place] [address] Performed By: #### 2 4323-8 ####[facility] [id number] [place] [address] [place] ALP [Catalytic activity/Vol] 68 U/L Normal 34-123 [facility] Comment on above: Order Comment: Speci men Type: BLOOD SPECIMENOrdering Facility: [facility] Address: [address] [place] [address] Performed By: #### 2 4323-8 ####[facility] [id number] [place] [address] [place] ALT [Catalytic activity/Vol] 13 U/L Normal 7-38 [facility] Comment on above: Order Comment: Speci men Type: BLOOD SPECIMENOrdering Facility: [facility] Address: [address] [place] [address] Performed By: #### 2 4323-8 ####[facility] [id number] [place] [address] [place] Anion gap [Moles/Vol] 11 mmol/L Normal 8-15 [facility] Comment on above: Order Comment: Speci men Type: BLOOD SPECIMENOrdering Facility: [facility] Address: [address] [place] [address] Performed By: #### 2 4323-8 ####[facility] [id number] [place] [address] [place] AST [Catalytic activity/Vol] 15 U/L Normal 13-35 [facility] Comment on above: Order Comment: Speci men Type: BLOOD SPECIMENOrdering Facility: [facility] Address: [address] [place], [place] [address] Performed By: #### 2 4323-8 ####[facility] MILLTOWNCLIA [id number] [place] [address] [place] Bilirubin [Mass/Vol] 0.2 mg/dL Normal 0.2-1.3 [facility] Comment on above: Order Comment: Speci men Type: BLOOD SPECIMENOrdering Facility: [facility] Address: [address] [place] [address] Performed By: #### 2 4323-8 ####[facility] MILLTOWNCLIA [id number] [place] [address] [place] Calcium [Mass/Vol] 9.7 mg/dL Normal 8.5-10.2 [facility] Comment on above: Order Comment: Speci men Type: BLOOD SPECIMENOrdering Facility: [facility] Address: [address] [place] [address] Performed By: #### 2 4323-8 ####[facility] [id number] [place] [address] [place] Chloride [Moles/Vol] 98 mmol/L Normal 98-107 [facility] Comment on above: Order Comment: Speci men Type: BLOOD SPECIMENOrdering Facility: [facility] Address: [address] [place] [address] Performed By: #### 2 4323-8 ####[facility] MILLTOWNCLIA [id number] [place] [address] [place] CO2 [Moles/Vol] 24 mmol/L Normal 22-30 [facility] Comment on above: Order Comment: Speci men Type: BLOOD SPECIMENOrdering Facility: [facility] Address: [address] [place], [place] [address] Performed By: #### 2 4323-8 ####[facility] MILLOCONTONCLIA [id number] [place] [address] [place] Creatinine [Mass/Vol] 0.64 mg/dL Normal 0.58-0.96 [facility] Comment on above: Order Comment: Mindy mcfarlane Type: BLOOD SPECIMENOrdering Facility: [facility] Address: [address] [place] [address] Performed By: #### 2 4323-8 ####[facility] [id number] [place] [address] [place] Creatinine and Glomerular filtration rate.predicted panel (S/P/Bld) 98 mL/min/1.73m??? Normal >=60 [facility] Comment on above: Order Comment: Mindy mcfarlane Type: BLOOD SPECIMENOrdering Facility: [facility] Address: [address] [place] [address] Result Comment: Sonia mated Glomerular Filtration Rate (eGFR) is calculated using the 2020 CKD-EPI creatinine equation. This equation utilizes serum creatinine, sex, and age as parameters. The creatinine assay has traceable calibration to isotope dilution-mass spectrometry. Refer to KDIGO guidelines for clinical interpretation. In patients with unstable renal function, e.g. those with acute kidney injury, the eGFR may not accurately reflect actual GFR. Performed By: #### 2 4323-8 ####[facility] [id number] [place] [address] [place] Glucose [Mass/Vol] 103 mg/dL High 74-99 [facility] Comment on above: Order Comment: Mindy mcfarlane Type: BLOOD SPECIMENOrdering Facility: [facility] Address: [address] [place] [address] Result Comment: The [place] Diabetes Association (ADA) provides guidance for cutoff values for fasting glucose and random glucose. The ADA defines fasting as no caloric intake for at least 8 hours. Fasting plasma glucose results between 100 to 125 mg/dL indicate increased risk for diabetes (prediabetes).Fasting plasma glucose results greater than or equal to 126 mg/dL meet the criteria for diagnosis of diabetes. In the absence of unequivocal hyperglycemia, results should be confirmed by repeat testing. In a patient with classic symptoms of hyperglycemia or hyperglycemic crisis, random plasma glucose results greater than or equal to 200 mg/dL meet the criteria for diagnosis of diabetes.Reference: Standards of Medical Care in Diabetes 2016, [place] Diabetes [employer]. Diabetes Care. 2016.39(Suppl 1). Performed By: #### 2 4323-8 ####[facility] [id number] [place] [address] [place] Potassium [Moles/Vol] 4.1 mmol/L Normal 3.7-5.1 [facility] Comment on above: Order Comment: Speci men Type: BLOOD SPECIMENOrdering Facility: [facility] Address: [address] [place] [address] Performed By: #### 2 4323-8 ####[facility] [id number] [place] [address] [place] Protein [Mass/Vol] 6.5 g/dL Normal 6.3-8.0 [facility] Comment on above: Order Comment: Speci men Type: BLOOD SPECIMENOrdering Facility: [facility] Address: [address] [place] [address] Performed By: #### 2 4323-8 ####[facility] [id number] [place] [address] [place] Sodium [Moles/Vol] 133 mmol/L Low 136-144 [facility] Comment on above: Order Comment: Speci men Type: BLOOD SPECIMENOrdering Facility: [facility] Address: [address] [place] [address] Performed By: #### 2 4323-8 ####[facility] [id number] [place] [address] [place] Urea nitrogen [Mass/Vol] 15 mg/dL Normal 7-21 [facility] Comment on above: Order Comment: Speci men Type: BLOOD SPECIMENOrdering Facility: [facility] Address: [address] [place] [address] Performed By: #### 2 4323-8 ####[facility] [id number] [place] [address] [place] CNPNon 11-05-2024 CNPN Normal [facility] CNOVon 11-03-2024 CNOV Normal [facility] BRIEF OP NOTon 10-30-2024 BRIEF OP NOT HNO ID: [id number] Author: ORTEGA CARDENAS MD Service: Radiology Author Type: Physician Type: Brief Op Note Filed: 10/30/2024 14:35 Note Text: RADIOLOGY BRIEF PROCEDURE NOTE LOG ID: [id number] Surgery/Procedure Date: 10/30/2024 Incision/Procedure Start Time: 1:53 PM Incision Close/Procedure End Time: 2:28 PM Informed Consent obtained under separate note. ATTENDING RADIOLOGIST: Interventional: Dr. Ortega Cardenas [employer] [place] MACHINE TENDER: None PRE-PROCEDURAL DIAGNOSIS: Anal cancer ANESTHESIA: Procedural Sedation PROCEDURE: A ported central venous catheter was placed via the right internal jugular vein under imaging guidance. POST-PROCEDURAL DIAGNOSIS: Same COMPLICATIONS: None ESTIMATED BLOOD LOSS: Minimal INDWELLING DEVICES: Vaccess CT Power-Injectable Port with 8 [place] polyurethane catheter SPECIMENS: None DISPOSITION: Patient hemodynamically stable, alert and awake. Patient transferred to Radiology Recovery/PACU for monitoring prior to anticipated discharge home. FULL REPORT TO FOLLOW (under the Imaging tab in the Chart Review section) SIGNATURE: Ortega Cardenas MD PATIENT NAME: Marimar Wang DATE: October 30, 2024 TIME: 2:33 PM CONTACT #: [phone] [facility] Brain/Head without Contrasto n 10-30-2024 Brain/Head without Contrast [facility] Imaging Services [address] [place], [place] [address] Brain/Head without Contrast MR#: [id number] Acct: [id number] Name: MARIMAR WANG Rep #: [id number] : 1960 F 64 From: Jaiden Mariee MD PCP: Julio Arriaga, 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-C Status: REG ER Study: Brain/Head without Contrast Date of Exam: 11/20 Exam# [id number] Ordering Dr: Gaudencio Ambriz DO PROCEDURE: BRAIN/HEAD WITHOUT CONTRAST 10/30/2024 REASON FOR EXAM: FALL TECHNIQUE: Head CT without intravenous contrast. Coronal and Sagittal reconstruction series were provided. One or more dose reduction techniques were used (e.g., Automated exposure control, adjustment of the mA and/or kV according to patient size, use of iterative reconstruction technique. RADIATION DOSE SUMMARY: CTDlvol: 44.99 mGy DLP: 796.11 mGycm COMPARISON: None available FINDINGS: No intracranial hemorrhage, mass effect or calvarial fracture. The ventricles are within limits and midline. The mendez-white differentiation appears preserved. Partially empty appearing sella. The visualized paranasal sinuses, mastoids and orbits appear within limits. Bilateral parasellar carotid calcification. CT/Brain/Head without Contrast IMPRESSION: No intracranial hemorrhage, mass effect or calvarial fracture. Reading Location: [facility] CC: 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-C Juilo Arriaga; Gaudencio Ambriz DO Bike Mechanic: Signed Normal [facility] CBC W Auto Differential pane l (Bld)on 10-30-2024 Basophils (Bld) [#/Vol] 0.04 10*3/uL Normal <0.11 [facility] Comment on above: Order Comment: Speci men Type: BLOOD SPECIMENOrdering Facility: [facility] Address: [address] [place] [address] Performed By: #### 5 7021-8 ####[facility] [id number] [place] [address] [place] Basophils/100 WBC (Bld) 1.0 % Normal C [facility] Comment on above: Order Comment: Speci men Type: BLOOD SPECIMENOrdering Facility: [facility] Address: [address] [place] [address] Performed By: #### 5 7021-8 ####[facility] [id number] [place] [address] [place] Differential cell count method Nom (Bld) Auto Normal [facility] Comment on above: Order Comment: Speci men Type: BLOOD SPECIMENOrdering Facility: [facility] Address: [address] [place] [address] Performed By: #### 5 7021-8 ####[facility] [id number] [place] [address] [place] Eosinophils (Bld) [#/Vol] 10*3/uL Normal <0.46 [facility] Comment on above: Order Comment: Speci men Type: BLOOD SPECIMENOrdering Facility: [facility] Address: [address] [place] [address] Performed By: #### 5 7021-8 ####[facility] [id number] [place] [address] [place] Eosinophils/100 WBC (Bld) 0.5 % Normal [facility] Comment on above: Order Comment: Speci men Type: BLOOD SPECIMENOrdering Facility: [facility] Address: [address] [place] [address] Performed By: #### 5 7021-8 ####[facility] [id number] [place] [address] [place] Erythrocyte distribution width (RBC) [Ratio] 20.9 % High 11.5-15.0 [facility] Comment on above: Order Comment: Speci men Type: BLOOD SPECIMENOrdering Facility: [facility] Address: [address] [place] [address] Performed By: #### 5 7021-8 ####[facility] [id number] [place] [address] [place] Hematocrit (Bld) [Volume fraction] 34.4 % Low 36.0-46.0 [facility] Comment on above: Order Comment: Speci men Type: BLOOD SPECIMENOrdering Facility: [facility] Address: [address] [place] [address] Performed By: #### 5 7021-8 ####[facility] [id number] [place] [address] [place] Hemoglobin (Bld) [Mass/Vol] 10.9 g/dL Low 11.5-15.5 [facility] Comment on above: Order Comment: Speci men Type: BLOOD SPECIMENOrdering Facility: [facility] Address: [address] [place] [address] Performed By: #### 5 7021-8 ####[facility] [id number] [place] [address] [place] Immature granulocytes (Bld) [#/Vol] 10*3/uL Normal <0.10 [facility] Comment on above: Order Comment: Speci men Type: BLOOD SPECIMENOrdering Facility: [facility] Address: [address] [place] [address] Performed By: #### 5 7021-8 ####[facility] [id number] [place] [address] [place] Immature granulocytes/100 WBC (Bld) 0.5 % Normal [facility] Comment on above: Order Comment: Speci men Type: BLOOD SPECIMENOrdering Facility: [facility] Address: [address] [place] [address] Performed By: #### 5 7021-8 ####[facility] [id number] [place] [address] [place] Lymphocytes (Bld) [#/Vol] 0.31 10*3/uL Low 1.00-4.00 [facility] Comment on above: Order Comment: Speci men Type: BLOOD SPECIMENOrdering Facility: [facility] Address: [address] [place] [address] Performed By: #### 5 7021-8 ####[facility] [id number] [place] [address] [place] Lymphocytes/100 WBC (Bld) 7.7 % Normal [facility] Comment on above: Order Comment: Speci men Type: BLOOD SPECIMENOrdering Facility: [facility] [facility] Address: [address] [place] [address] Performed By: #### 5 7021-8 ####[facility] [id number] [place] [address] [place] MCH (RBC) [Entitic mass] 27.3 pg Normal 26.0-34.0 [facility] Comment on above: Order Comment: Speci men Type: BLOOD SPECIMENOrdering Facility: [facility] Address: [address] [place] [address] Performed By: #### 5 7021-8 ####[facility] [id number] [place] [address] [place] MCHC (RBC) [Mass/Vol] 31.7 g/dL Normal 30.5-36.0 [facility] Comment on above: Order Comment: Speci men Type: BLOOD SPECIMENOrdering Facility: [facility] Address: [address] [place] [address] Performed By: #### 5 7021-8 ####[facility] [id number] [place] [address] [place] MCV (RBC) [Entitic vol] 86.2 fL Normal 80.0-100.0 C [facility] Comment on above: Order Comment: Speci men Type: BLOOD SPECIMENOrdering Facility: [facility] Address: [address] [place] [address] Performed By: #### 5 7021-8 ####[facility] [id number] [place] [address] [place] Monocytes (Bld) [#/Vol] 0.47 10*3/uL Normal <0.87 [facility] Comment on above: Order Comment: Speci men Type: BLOOD SPECIMENOrdering Facility: [facility] Address: [address] [place] [address] Performed By: #### 5 7021-8 ####[facility] [id number] [place] [address] [place] Monocytes/100 WBC (Bld) 11.7 % Normal [facility] Comment on above: Order Comment: Speci men Type: BLOOD SPECIMENOrdering Facility: [facility] Address: [address] [place] [address] Performed By: #### 5 7021-8 ####[facility] [id number] [place] [address] [place] Neutrophils (Bld) [#/Vol] 3.16 10*3/uL Normal 1.45-7.50 [facility] Comment on above: Order Comment: Speci men Type: BLOOD SPECIMENOrdering Facility: [facility] Address: [address] [place] [address] Performed By: #### 5 7021-8 ####[facility] [id number] [place] [address] [place] Neutrophils/100 WBC (Bld) 78.6 % Normal [facility] Comment on above: Order Comment: Speci men Type: BLOOD SPECIMENOrdering Facility: [facility] Address: [address] [place] [address] Performed By: #### 5 7021-8 ####[facility] [id number] [place] [address] [place] Nucleated RBC (Bld) [#/Vol] 10*3/uL Normal <0.01 [facility] Comment on above: Order Comment: Speci men Type: BLOOD SPECIMENOrdering Facility: [facility] Address: [address] [place] [address] Performed By: #### 5 7021-8 ####[facility] ALYSSAOCONTOZEVLIA [id number] [place] [address] [place] Nucleated RBC/100 WBC (Bld) [Ratio] 0.0 /100 WBC Normal [facility] Comment on above: Order Comment: Speci men Type: BLOOD SPECIMENOrdering Facility: [facility] Address: [address] [place] [address] Performed By: #### 5 7021-8 ####[facility] [id number] [place] [address] [place] Platelet mean volume (Bld) [Entitic vol] 9.7 fL Normal 9.0-12.7 [facility] Comment on above: Order Comment: Speci men Type: BLOOD SPECIMENOrdering Facility: [facility] Address: [address] [place] [address] Performed By: #### 5 7021-8 ####[facility] [id number] [place] [address] [place] Platelets (Bld) [#/Vol] 179 10*3/uL Normal 150-400 [facility] Comment on above: Order Comment: Speci men Type: BLOOD SPECIMENOrdering Facility: [facility] Address: [address] [place] [address] Performed By: #### 5 7021-8 ####[facility] [id number] [place] [address] [place] RBC (Bld) [#/Vol] 3.99 10*6/uL Normal 3.90-5.20 [facility] Comment on above: Order Comment: Speci men Type: BLOOD SPECIMENOrdering Facility: [facility] Address: [address] [place] [address] Performed By: #### 5 7021-8 ####[facility] [id number] [place] [address] [place] WBC (Bld) [#/Vol] 4.02 10*3/uL Normal 3.70-11.00 [facility] Comment on above: Order Comment: Speci men Type: BLOOD SPECIMENOrdering Facility: [facility] Address: [address] [place] [address] Performed By: #### 5 7021-8 ####[facility] [id number] [place] [address] [place] CNOVSPon 10-30-2024 CNOVSP Normal [facility] metabolic 2000 panelon 10-30-2024 Albumin [Mass/Vol] 3.9 g/dL Normal 3.9-4.9 [facility] Comment on above: Order Comment: Speci men Type: BLOOD SPECIMENOrdering Facility: [facility] Address: [address] [place] [address] Performed By: #### 2 4323-8 ####[facility] [id number] [place] [address] [place] ALP [Catalytic activity/Vol] 81 U/L Normal 34-123 [facility] Comment on above: Order Comment: Speci men Type: BLOOD SPECIMENOrdering Facility: [facility] Address: [address] [place] [address] Performed By: #### 2 4323-8 ####[facility]CL[facility] [id number] [place] [address] [place] ALT [Catalytic activity/Vol] 17 U/L Normal 7-38 [facility] Comment on above: Order Comment: Speci men Type: BLOOD SPECIMENOrdering Facility: [facility] Address: [address] [place], [place] [address] Performed By: #### 2 4323-8 ####[facility]ITAL[facility]CL[facility] [id number] [place] [address] [place] Anion gap [Moles/Vol] 8 mmol/L Normal 8-15 [facility] Comment on above: Order Comment: Speci men Type: BLOOD SPECIMENOrdering Facility: [facility] Address: [address] [place] [address] Performed By: #### 2 4323-8 ####[facility]ITALWCTLIA [id number] [place] [address] [place] AST [Catalytic activity/Vol] 21 U/L Normal 13-35 [facility] Comment on above: Order Comment: Speci men Type: BLOOD SPECIMENOrdering Facility: [facility] Address: [address] [place] [address] Performed By: #### 2 4323-8 ####[facility] [id number] [place] [address] [place] Bilirubin [Mass/Vol] 0.4 mg/dL Normal 0.2-1.3 [facility] Comment on above: Order Comment: Speci men Type: BLOOD SPECIMENOrdering Facility: [facility] Address: [address] [place] [address] Performed By: #### 2 4323-8 ####[facility] [id number] [place] [address] [place] Calcium [Mass/Vol] 9.6 mg/dL Normal 8.5-10.2 [facility] Comment on above: Order Comment: Speci men Type: BLOOD SPECIMENOrdering Facility: [facility] Address: [address] [place], [place] [address] Performed By: #### 2 4323-8 ####[facility] [id number] [place] [address] [place] Chloride [Moles/Vol] 102 mmol/L Normal 98-107 [facility] Comment on above: Order Comment: Speci men Type: BLOOD SPECIMENOrdering Facility: [facility] Address: [address] [place] [address] Performed By: #### 2 4323-8 ####[facility] [id number] [place] [address] [place] CO2 [Moles/Vol] 26 mmol/L Normal 22-30 [facility] Comment on above: Order Comment: Speci men Type: BLOOD SPECIMENOrdering Facility: [facility] Address: [address] [place] [address] Performed By: #### 2 4323-8 ####[facility] [id number] [place] [address] [place] Creatinine [Mass/Vol] 0.65 mg/dL Normal 0.58-0.96 [facility] Comment on above: Order Comment: Speci men Type: BLOOD SPECIMENOrdering Facility: [facility] Address: [address] [place] [address] Performed By: #### 2 4323-8 ####[facility] [id number] [address] [place] Creatinine and Glomerular filtration rate.predicted panel (S/P/Bld) 98 mL/min/1.73m??? Normal >=60 [facility] Comment on above: Order Comment: Speci men Type: BLOOD SPECIMENOrdering Facility: [facility] Address: [address] [place] [address] Result Comment: Sonia mated Glomerular Filtration Rate (eGFR) is calculated using the 2020 CKD-EPI creatinine equation. This equation utilizes serum creatinine, sex, and age as parameters. The creatinine assay has traceable calibration to isotope dilution-mass spectrometry. Refer to KDIGO guidelines for clinical interpretation. In patients with unstable renal function, e.g. those with acute kidney injury, the eGFR may not accurately reflect actual GFR. Performed By: #### 2 4323-8 ####[facility] [id number] [place] [address] [place] Glucose [Mass/Vol] 111 mg/dL High 74-99 [facility] Comment on above: Order Comment: Speci men Type: BLOOD SPECIMENOrdering Facility: [facility] Address: [address] [place] [address] Result Comment: The [place] [employer] (ADA) provides guidance for cutoff values for fasting glucose and random glucose. The ADA defines fasting as no caloric intake for at least 8 hours. Fasting plasma glucose results between 100 to 125 mg/dL indicate increased risk for diabetes (prediabetes).Fasting plasma glucose results greater than or equal to 126 mg/dL meet the criteria for diagnosis of diabetes. In the absence of unequivocal hyperglycemia, results should be confirmed by repeat testing. In a patient with classic symptoms of hyperglycemia or hyperglycemic crisis, random plasma glucose results greater than or equal to 200 mg/dL meet the criteria for diagnosis of diabetes.Reference: Standards of Medical Care in Diabetes 2016, [place] [employer]. Diabetes Care. 2016.39(Suppl 1). Performed By: #### 2 4323-8 ####[facility]ITALWZEVLIA [id number] [place] [address] [place] Potassium [Moles/Vol] 3.7 mmol/L Normal 3.7-5.1 [facility] Comment on above: Order Comment: Speci men Type: BLOOD SPECIMENOrdering Facility: [facility] Address: [address] [place] [address] Performed By: #### 2 4323-8 ####[facility]WNCLIA [id number] [place] [address] [place] Protein [Mass/Vol] 6.9 g/dL Normal 6.3-8.0 [facility] Comment on above: Order Comment: Speci men Type: BLOOD SPECIMENOrdering Facility: [facility] Address: [address] [place] [address] Performed By: #### 2 4323-8 ####[facility] [id number] [place] [address] [place] Sodium [Moles/Vol] 136 mmol/L Normal 136-144 [facility] Comment on above: Order Comment: Speci men Type: BLOOD SPECIMENOrdering Facility: [facility] Address: [address] [place], [place] [address] Performed By: #### 2 4323-8 ####[facility] [id number] [place] [address] [place] Urea nitrogen [Mass/Vol] 6 mg/dL Low 7-21 [facility] Comment on above: Order Comment: Speci men Type: BLOOD SPECIMENOrdering Facility: [facility] Address: [address] [place] [address] Performed By: #### 2 4323-8 ####[facility] [id number] [address] [place] Emergency Department Summary on 10-30-2024 Emergency Department Summary [facility] Department [address] [place] [address] Emergency Department Summary 10/30/24 MR#: [id number] Acct: [id number] Name: MARIMAR WANG Rep #: [id number] : 1960 64 From: Gaudencio Ambriz DO PCP: [facility] Arriola Status:DEP ER Location: ED HPI History of Present Illness Chief Complaint: Fall Informant: patient and family Narrative Narrative: Patient is a 64-year-old female with history of hypertension hyperlipidemia psoriasis psoriatic arthritis previous TIA currently on Eliquis and COPD. Patient and family states she was also recently diagnosed with cancer. They state that since that diagnosis she has been having increased fatigue and weakness making it difficult for her to ambulate. Patient states that this morning she got up to use the bathroom and after doing so as she was bending over to pull up her pants she lost her balance and fell. She states she landed on her left side but as she fell she reached for her wheelchair and was able to grab it but unfortunately pulled it down striking her right hip. She denies striking her head or any loss of consciousness. She states she is currently scheduled to have a port placed later today and therefore has been off her Eliquis for the past few days. She states family was able to help her back up and she was able to ambulate but with pain to the hips there is concern for potential fracture or trauma to her underlying hardware and therefore she was brought in for evaluation [facility] Medical History 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 Mass of anus Perirectal abscess History of Crohn's disease Psoriatic arthritis Psoriasis Internal derangement of right knee Wears glasses Post-menopausal Depression Anxiety Ambulates with cane Injury of back Difficulty swallowing History of IBS History of hiatal hernia Former smoker Shortness of breath on exertion Chronic cough History of echocardiogram History of stress test Hypertension Cardiology follow-up encounter History of CHF (congestive heart failure) History of irregular heartbeat Acute pharyngitis, unspecified URI (upper respiratory infection) Contact with or suspected exposure to other viral communicable disease History of partial replacement of left hip joint using bipolar prosthesis Vitamin D deficiency HLD (hyperlipidemia) Insomnia Dry eye Regular astigmatism, bilateral PVCs (premature ventricular contractions) Coronary artery stenosis Chronic diastolic CHF (congestive heart failure) Iron malabsorption Osteoarthritis Lumbar spondylosis Osteoporosis Congenital cataract Intermittent palpitations Nausea TIA (transient ischemic attack) Acute maxillary sinusitis, unspecified Acute ethmoidal sinusitis, unspecified Acute frontal sinusitis, unspecified COPD exacerbation Foreign body in conjunctival sac, left eye, initial encounter Acute bacterial conjunctivitis Influenza A Acute bronchitis Back pain Limb weakness Asthma Anemia Arthritis Home Medications ???Medication ???Instructions ???Recorded ???Last Taken ???Type albuterol sulfate 90 mcg/actuation 2 puff inhalation Q4H PRN PRN Unknown History aerosol inhaler Shortness Of Breath fluoxetine 20 mg capsule 60 mg PO QHS MENTAL HEALTH 6 09/01/24 History peg [id number]-jspednc n 1 1 drp OP 4X/DAY DRY EYES 11/13/17 03/19/24 History %-0.2 %-0.2 % eye drops (Dry Eye Relief) leflunomide 20 mg tablet (Arava) 20 mg PO QHS RA 03/22/18 09/01/24 History amlodipine 5 mg tablet 7.5 mg PO QHS BP 08/15/22 09/01/24 History mometasone 50 mcg/actuation nasal 2 spray intranasal .QAM ALLERGIES 08/15/22 09/01/24 History spray ergocalciferol (vitamin D2) 1,250 1,250 mcg PO .EVERY OTHER WEEK 08/26/24 History mcg (50,000 unit) capsule (Vitamin SUPPELEMNT D2) mecobalamin (vitamin B12) 1,000 1,000 mcg sublingual QHS SUPPLEMEN T 12/06/22 09/01/24 History mcg disintegrating tablet,sublingual abatacept 50 mg/0.4 mL 50 mg subcut QMONTH RA 12/17/22 History subcutaneous syringe (Orencia) Held on 10/02/24. Instructions: due to chemo polyethylene glycol 3350 17 4 g PO PRN PRN Constipation Unknown History gram/dose oral powder (Miralax) [id number]-ohidbiih-hfuxkna See Rx Instructions PO .COMPLEX 09/01/24 Rx 36,000-114,000-180,000 unit #300 caps capsule,delay rel (Creon) acetaminophen 500 mg tablet 1,000 mg PO Q6H PRN fever or pain 11/15/23 09/01/24 History atorvastatin 80 mg tablet 80 mg PO QHS 11/15/23 09/01/24 His tory meclizine 25 mg tablet 25 mg PO DAILY PRN PRN dizziness 0 03/17/24 Unknown History budesonide 3 mg 6 mg (2 x 3 mg) PO DAILY #60 caps 04/09/24 09/01/24 Rx capsule,delayed (more content not included)... Normal [facility] HIP, UNI W/ Pelvis 2-3 Views on 10-30-2024 HIP, UNI W/ Pelvis 2-3 Views [facility] Imaging Services [address] [place] [address] HIP, UNI W/ Pelvis 2-3 Views MR#: [id number] Acct: [id number] Name: MARIMAR WANG Rep #: [id number] : 1960 F 64 From: Jaiden Mariee MD PCP: Julio Arriaga NP-C Status: REG ER Study: HIP, UNI W/ Pelvis 2-3 Views Date of Exam: 11/20 Exam# [id number] Ordering Dr: Gaudencio Ambriz DO PROCEDURE: HIP, UNI W/ PELVIS 2-3 VIEWS 10/30/2024 REASON FOR EXAM: PAIN TECHNIQUE: AP pelvis and two-view right hip and two-view left hip, 5 total images COMPARISON: None available FINDINGS: Pelvis and bilateral hips: Status post left hip replacement. No fracture or dislocation. Degenerative changes of the lower left sacroiliac joint noted. Right SI joint and pubic symphysis appear within limits. Lower lumbar spondylosis/discogenic change. Vascular calcifications noted. RAD/HIP, UNI W/ Pelvis 2-3 Views IMPRESSION: Status post left hip replacement. No fracture or dislocation. Degenerative changes of the lower left sacroiliac joint noted. Reading Location: [id number] CC: 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-C Julio Arriaga; Gaudencio Ambriz DO Bike Mechanic: Signed Normal [facility] HISTORY PHYSICALon HISTORY PHYSICAL HNO ID: [id number] Author: ORTEGA CARDENAS MD Service: Radiology Author Type: Physician Type: H&P Filed: 10/30/2024 13:28 Note Text: RADIOLOGY PROCEDURAL SEDATION HISTORY AND PHYSICAL EXAM SERVICE DATE: 10/30/2024 SERVICE TIME: 1:27 PM Subjective HPI: This is a 64 year old female with anal cancer who presents to IR for placement of a ported central venous catheter for chemotherapy administration. PROCEDURE SCHEDULED: Procedure(s): INSERTION PORT VENOUS ACCESS ADULT (Pending) PAST ANESTHESIA HISTORY: No history of adverse event PAST MEDICAL HISTORY Diagnosis Date Asthma (HCC) Homer lesion, acute 01/30/2019 Carotid artery stenosis bilateral- US in epic COPD (chronic obstructive pulmonary disease) (HCC) Crohn disease (HCC) Depression Diverticulosis Fibromyalgia GERD (gastroesophageal reflux disease) GI bleed 02/2019 Hiatal hernia Repaired 05/07/19 Hyperlipidemia Hypertension Insomnia Iron deficiency anemia Iron deficiency anemia Osteoarthritis Osteoporosis Piriformis syndrome PVC's (premature ventricular contractions) Rheumatoid arthritis Sjogren's disease (HCC) Vitamin D deficiency PAST SURGICAL HISTORY Procedure Laterality Date ARTHRP KNE CONDYLEANDPLATU MEDIALANDLAT COMPARTMENTS 2009 Total left knee surgery COLONOSCOPY FLX DX W/COLLJ SPEC WHEN PFRMD 04/11/2015 diverticulosis, no specimens collected Dr. Tapia COLONOSCOPY FLX DX W/COLLJ SPEC WHEN PFRMD 09/23/[address] Tapia EGD 01/30/2019 large hiatal hernia with Homer erosions, likely source of GI bleed Dr. Rudolph EGD 09/15/2007 patulous GE junction, nonobstructive Schatzki's ring, bile reflux of stomach, hiatal hernia, neg H pylori EGD EUS N/A 07/07/2020 3 cm sliding hiatal hernia, no obst Schatzki's ring, mild duodenitis, mild/moderate gastritis EGD TRANSORAL BIOPSY SINGLE/MULTIPLE 02/17/2020 retained contents in stomach, bxs negative Dr. Pat ESOPHAGOGASTRODUODENOSCO PY TRANSORAL DIAGNOSTIC 05/07/2016 sliding hiatal hernia, no source of GI bleed Dr. Laureano ESOPHAGOGASTRODUODENOSCO PY TRANSORAL DIAGNOSTIC 09/23/2017 normal, bxs negative Dr. Tapia GI TRC IMG INTRALUMINAL ESOPHAGUS-ILEUM W/IANDR 10/04/2017 Normal smallbowel Capsule endosocpy HIATAL HERNIA REPAIR HX 04/2019 LAPS RPR PARAESPHGL HRNA INCL FUNDPLSTY W/MESH 05/07/2019 Dr. Pat MRI BRAIN W/O CONTRAST 07/20/2011 PARTIAL HIP REPLACEMENT Left 2020 PAST SURGICAL HISTORY OF 1983, 1986 2 C Sections PAST SURGICAL HISTORY OF 1982 Left shoulder, has screw in shoulder PAST SURGICAL HISTORY OF 09/02/2024 biopsy perianal mass TOTAL KNEE REPLACEMENT Right 2021 Prior to Admission medications as of 10/30/24 1229 Medication Sig Last Dose Taking potassium chloride (K-TAB) 10 mEq tablet Take 1 tablet by mouth two times a day. 10/29/2024 Yes prochlorperazine (COMPAZINE) 10 mg tablet Take 1 tablet by mouth every 6 hours as needed. 10/30/2024 Yes cholecalciferol, Vitamin D3, (VITAMIN D3) 1,250 mcg (50,000 unit) cap capsule Take 1 capsule by mouth every other week. 10/29/2024 Yes oxyCODONE-acetaminophen (PERCOCET) 5-325 mg tablet Take 1 tablet by mouth every 6 hours as needed. 10/29/2024 Yes leflunomide (ARAVA) 20 mg tablet Take 1 tablet by mouth once daily 10/29/2024 Yes meclizine (ANTIVERT) 25 mg tab Take 25 mg by mouth three times a day as needed (for dizziness). 10/29/2024 Yes atorvastatin (LIPITOR) 80 mg tablet Take 80 mg by mouth once daily. 10/29/2024 Yes pbpwda-pgpeodhh-woaigvr (CREON 36) 36,000-114,000- 180,000 unit delayed release capsule Take 1-3 capsules by mouth with meals and at bedtime. With snacks also 10/29/2024 Yes furosemide (LASIX) 20 mg tablet Take 20 mg by mouth once daily. 10/29/2024 Yes budesonide, enteric coated (ENTOCORT EC) 3 mg 24 hr capsule Take 2 capsules by mouth every afternoon. 10/29/[address] (PROTONIX) 40 mg tablet Take 40 mg by mouth once daily. 10/29/2024 Yes dicyclomine (BENTYL) 20 mg tablet Take 10 mg by mouth three times a day. 10/29/2024 Yes VITAMIN B-12 1,000 mcg tab DISSOLVE 1 TABLET BY MOUTH ONCE DAILY 10/29/2024 Yes amLODIPine (NORVASC) 5 mg tablet Take 7.5 mg by mouth once daily. 10/29/2024 Yes FLUoxetine (PROZAC) 20 mg capsule Take 3 capsules by mouth once daily. 10/29/2024 Yes buPROPion XL (WELLBUTRIN XL) 150 mg 24 hr tablet Take 1 tablet by mouth once daily. 10/29/2024 Yes silver sulfADIAZINE (SILVADENE) 1 % cream Apply 1 application to affected area two times a day. apixaban (ELIQUIS) 5 mg (74 tabs) Take 2 tablets (10 mg) by mouth twice daily for 7 days. Then take 1 tablet (5 mg) by mouth twice daily for 23 days Patient not taking: Reported on 10/30/2024 10/28/2024 ucfnvfvcfoUHDKY-xkbnxl-e idocaine (BMX 1:1:1) 1:1:1 liqd Take 10 mL by mouth every 4 hours as needed. iv contrast (will be provided with radiology test) CT Chest W -Inject, intravenously, once for 1 dose.No IV access, insert saline lock prior to the beginning of se (more content not included)... Normal [facility] IR TIMI GD RIO CVA PLACEon IR TIMI REDD RIO CVA PLACE * * *Final Repor t* * * DATE OF EXAM: Oct 30 2024 2:27PM [facility] 7444 - IR TIMI GD RIO CVA PLACE / PROCEDURE REASON: anal cancer * * * * Physician Interpretation * * * * PROCEDURE: VENOUS PORT PLACEMENT Procedural Personnel Attending physician(s): Ortega Cardenas M.D. Assistants: None Pre-procedure diagnosis: Anal cancer Post-procedure diagnosis: Same Indication: Administration of chemotherapy PROCEDURE SUMMARY: - Venous access with ultrasound guidance - Tunneled port insertion under fluoroscopic guidance - Additional procedure(s): None PROCEDURE DETAILS: Pre-procedure History and imaging of central venous access reviewed (QCDR): Yes Consent: Risks, benefits, treatment options, potential complications and personnel to be involved were discussed (including the risks of radiation exposure, contrast and anesthesia administration, and any equipment needed for the procedure to ensure best possible outcome) with the patient and all questions were answered and consent was obtained prior to procedure. Transfusion of blood products: No Medication reconciliation: The patient's medications and allergies were reviewed in the electronic medical record and reconciled to the proposed procedure/treatment. Jenna-procedure discussion: The appropriate elements of the pre-procedure discussion, safety check list and sign-out were performed. Time out: A time out was performed immediately prior to procedure start with the nursing and interventional team, correctly identifying the name, date of , procedure, anatomy (including marking of site and side if applicable), patient position, procedure consent form, relevant diagnostic and radiology test results, antibiotic administration if applicable, safety precautions, and procedure-specific equipment needs. Start of procedure: 13:53 End of procedure: 14:27 Patient position: Supine Antibiotics: Ceftriaxone Antibiotic infusion start time: 12:48 Prophylactic antibiotic administered: Within 1 hour of procedure start time or 2 hours for vancomycin or fluoroquinolones Preparation (MIPS): The site was prepared and draped using all elements of maximal sterile barrier technique including sterile gloves, sterile gown, cap, mask, large sterile sheet, sterile ultrasound probe cover, hand hygiene and cutaneous antisepsis with 2% chlorhexidine. Medical reason for site preparation exception (MIPS): Not applicable Contrast: None FLUOROSCOPIC RADIATION SUMMARY: Plane A, Air Kerma: 6.1 mGy Dose Area Product (DAP): 144.49 uGym2 Fluoro Time: 0:48 min:sec Radiation dose exceed 5 Gy: No If radiation dose exceeded 5 Gy, was counseling and instructional brochure provided: N/A Anesthesia/sedation Level of anesthesia/sedation: Moderate sedation (conscious sedation) Anesthesia/sedation administered by: Independent trained observer under attending supervision with continuous monitoring of the patient?s level of consciousness and physiologic status Total intra-service sedation time (minutes): 43 Local anesthesia: 2 % lidocaine Access Local anesthesia was administered. The vessel was sonographically evaluated and determined to be patent. Real time ultrasound was used to visualize needle entry into the vessel and a permanent image was stored. Vein accessed: Right Internal jugular vein Access technique: Micropuncture set with 21 gauge needle Venography: Not performed Port placement An incision was made at the upper chest, a pocket was created, and the catheter was tunneled subcutaneously to the venous access site and trimmed to appropriate length. The port was inserted into the pocket and the catheter was advanced via a peel-away sheath into the vein under fluoroscopic guidance. The port was sutured into the pocket using absorbable suture. Catheter tip location was fluoroscopically verified and a permanent image was stored. Port placed: Vaccess CT Power-Injectable Port with 8 Ugandan polyurethane catheter Catheter tip position: Cavoatrial junction Unique Device Identifier: Not available Catheter flush: Normal saline Closure The access site and incision were closed and sterile dressing(s) were applied. Access site closure technique: Tissue adhesive Incision closure technique: Absorbable suture and tissue adhesive Patient discharged from procedure suite with device accessed: No Specimens removed: None Estimated blood loss (mL): Less than 10 Standardized report: SIR_Port_v2 The patient tolerated the procedure well. The patient was comfortable and was transferred to the transferred to the recovery area in stable condition. Complications There were no immediate complications and no other complications. Attestation Signer name: Ortega Cardenas I attest that I was present for the entire procedure. I reviewed the stored images and agree with the report as written. IMPRESSION: INSERTION OF RIGHT-SI (more content not included)... Normal [facility] IR PORTOCATH PLACEMENTon IR PORTOCATH PLACEMENT * * *Final Report * * * DATE OF EXAM: Oct 30 2024 2:27PM [facility] 8966 - IR PORTOCATH PLACEMENT / PROCEDURE REASON: anal cancer * * * * Physician Interpretation * * * * PROCEDURE: VENOUS PORT PLACEMENT Procedural Personnel Attending physician(s): Ortega Cardenas M.D. Assistants: None Pre-procedure diagnosis: Anal cancer Post-procedure diagnosis: Same Indication: Administration of chemotherapy PROCEDURE SUMMARY: - Venous access with ultrasound guidance - Tunneled port insertion under fluoroscopic guidance - Additional procedure(s): None PROCEDURE DETAILS: Pre-procedure History and imaging of central venous access reviewed (QCDR): Yes Consent: Risks, benefits, treatment options, potential complications and personnel to be involved were discussed (including the risks of radiation exposure, contrast and anesthesia administration, and any equipment needed for the procedure to ensure best possible outcome) with the patient and all questions were answered and consent was obtained prior to procedure. Transfusion of blood products: No Medication reconciliation: The patient's medications and allergies were reviewed in the electronic medical record and reconciled to the proposed procedure/treatment. Jenna-procedure discussion: The appropriate elements of the pre-procedure discussion, safety check list and sign-out were performed. Time out: A time out was performed immediately prior to procedure start with the nursing and interventional team, correctly identifying the name, date of , procedure, anatomy (including marking of site and side if applicable), patient position, procedure consent form, relevant diagnostic and radiology test results, antibiotic administration if applicable, safety precautions, and procedure-specific equipment needs. Start of procedure: 13:53 End of procedure: 14:27 Patient position: Supine Antibiotics: Ceftriaxone Antibiotic infusion start time: 12:48 Prophylactic antibiotic administered: Within 1 hour of procedure start time or 2 hours for vancomycin or fluoroquinolones Preparation (MIPS): The site was prepared and draped using all elements of maximal sterile barrier technique including sterile gloves, sterile gown, cap, mask, large sterile sheet, sterile ultrasound probe cover, hand hygiene and cutaneous antisepsis with 2% chlorhexidine. Medical reason for site preparation exception (MIPS): Not applicable Contrast: None FLUOROSCOPIC RADIATION SUMMARY: Plane A, Air Kerma: 6.1 mGy Dose Area Product (DAP): 144.49 uGym2 Fluoro Time: 0:48 min:sec Radiation dose exceed 5 Gy: No If radiation dose exceeded 5 Gy, was counseling and instructional brochure provided: N/A Anesthesia/sedation Level of anesthesia/sedation: Moderate sedation (conscious sedation) Anesthesia/sedation administered by: Independent trained observer under attending supervision with continuous monitoring of the patient?s level of consciousness and physiologic status Total intra-service sedation time (minutes): 43 Local anesthesia: 2 % lidocaine Access Local anesthesia was administered. The vessel was sonographically evaluated and determined to be patent. Real time ultrasound was used to visualize needle entry into the vessel and a permanent image was stored. Vein accessed: Right Internal jugular vein Access technique: Micropuncture set with 21 gauge needle Venography: Not performed Port placement An incision was made at the upper chest, a pocket was created, and the catheter was tunneled subcutaneously to the venous access site and trimmed to appropriate length. The port was inserted into the pocket and the catheter was advanced via a peel-away sheath into the vein under fluoroscopic guidance. The port was sutured into the pocket using absorbable suture. Catheter tip location was fluoroscopically verified and a permanent image was stored. Port placed: Vaccess CT Power-Injectable Port with 8 Ugandan polyurethane catheter Catheter tip position: Cavoatrial junction Unique Device Identifier: Not available Catheter flush: Normal saline Closure The access site and incision were closed and sterile dressing(s) were applied. Access site closure technique: Tissue adhesive Incision closure technique: Absorbable suture and tissue adhesive Patient discharged from procedure suite with device accessed: No Specimens removed: None Estimated blood loss (mL): Less than 10 Standardized report: SIR_Port_v2 The patient tolerated the procedure well. The patient was comfortable and was transferred to the transferred to the recovery area in stable condition. Complications There were no immediate complications and no other complications. Attestation Signer name: Ortega Cardenas I attest that I was present for the entire procedure. I reviewed the stored images and agree with the report as written. IMPRESSION: INSERTION OF RIGHT-NENITA (more content not included)... Normal [facility] IR US VASCULAR ACCESS GUIDEo n 10-30-2024 IR US VASCULAR ACCESS GUIDE * * *Final Report* * * DATE OF EXAM: Oct 30 2024 2:27PM [facility] 7765 - US VASCULAR ACCESS GUIDE / PROCEDURE REASON: anal cancer * * * * Physician Interpretation * * * * PROCEDURE: VENOUS PORT PLACEMENT Procedural Personnel Attending physician(s): Ortega Cardenas M.D. Assistants: None Pre-procedure diagnosis: Anal cancer Post-procedure diagnosis: Same Indication: Administration of chemotherapy PROCEDURE SUMMARY: - Venous access with ultrasound guidance - Tunneled port insertion under fluoroscopic guidance - Additional procedure(s): None PROCEDURE DETAILS: Pre-procedure History and imaging of central venous access reviewed (QCDR): Yes Consent: Risks, benefits, treatment options, potential complications and personnel to be involved were discussed (including the risks of radiation exposure, contrast and anesthesia administration, and any equipment needed for the procedure to ensure best possible outcome) with the patient and all questions were answered and consent was obtained prior to procedure. Transfusion of blood products: No Medication reconciliation: The patient's medications and allergies were reviewed in the electronic medical record and reconciled to the proposed procedure/treatment. Jenna-procedure discussion: The appropriate elements of the pre-procedure discussion, safety check list and sign-out were performed. Time out: A time out was performed immediately prior to procedure start with the nursing and interventional team, correctly identifying the name, date of , procedure, anatomy (including marking of site and side if applicable), patient position, procedure consent form, relevant diagnostic and radiology test results, antibiotic administration if applicable, safety precautions, and procedure-specific equipment needs. Start of procedure: 13:53 End of procedure: 14:27 Patient position: Supine Antibiotics: Ceftriaxone Antibiotic infusion start time: 12:48 Prophylactic antibiotic administered: Within 1 hour of procedure start time or 2 hours for vancomycin or fluoroquinolones Preparation (MIPS): The site was prepared and draped using all elements of maximal sterile barrier technique including sterile gloves, sterile gown, cap, mask, large sterile sheet, sterile ultrasound probe cover, hand hygiene and cutaneous antisepsis with 2% chlorhexidine. Medical reason for site preparation exception (MIPS): Not applicable Contrast: None FLUOROSCOPIC RADIATION SUMMARY: Plane A, Air Kerma: 6.1 mGy Dose Area Product (DAP): 144.49 uGym2 Fluoro Time: 0:48 min:sec Radiation dose exceed 5 Gy: No If radiation dose exceeded 5 Gy, was counseling and instructional brochure provided: N/A Anesthesia/sedation Level of anesthesia/sedation: Moderate sedation (conscious sedation) Anesthesia/sedation administered by: Independent trained observer under attending supervision with continuous monitoring of the patient?s level of consciousness and physiologic status Total intra-service sedation time (minutes): 43 Local anesthesia: 2 % lidocaine Access Local anesthesia was administered. The vessel was sonographically evaluated and determined to be patent. Real time ultrasound was used to visualize needle entry into the vessel and a permanent image was stored. Vein accessed: Right Internal jugular vein Access technique: Micropuncture set with 21 gauge needle Venography: Not performed Port placement An incision was made at the upper chest, a pocket was created, and the catheter was tunneled subcutaneously to the venous access site and trimmed to appropriate length. The port was inserted into the pocket and the catheter was advanced via a peel-away sheath into the vein under fluoroscopic guidance. The port was sutured into the pocket using absorbable suture. Catheter tip location was fluoroscopically verified and a permanent image was stored. Port placed: Vaccess CT Power-Injectable Port with 8 Ugandan polyurethane catheter Catheter tip position: Cavoatrial junction Unique Device Identifier: Not available Catheter flush: Normal saline Closure The access site and incision were closed and sterile dressing(s) were applied. Access site closure technique: Tissue adhesive Incision closure technique: Absorbable suture and tissue adhesive Patient discharged from procedure suite with device accessed: No Specimens removed: None Estimated blood loss (mL): Less than 10 Standardized report: SIR_Port_v2 The patient tolerated the procedure well. The patient was comfortable and was transferred to the transferred to the recovery area in stable condition. Complications There were no immediate complications and no other complications. Attestation Signer name: Ortega Cardenas I attest that I was present for the entire procedure. I reviewed the stored images and agree with the report as written. IMPRESSION: INSERTION OF RIGH (more content not included)... [facility] NURSING PROGon 10-30-2024 NURSING PROG HNO ID: [id number] Author: JACKIE CANDELARIA RN Service: Nursing Author Type: Registered Nurse Type: Nursing Progress Note Filed: 11/02/2024 17:59 Note Text: Completed post procedure phone call. Vidya is feeling well and has returned to her baseline diet and activity. Vidya denies questions or concerns related to she appointment and had no surgical site concerns. [facility] NURSING PROG HNO ID: [id number] Author: RADHA QUIROZ RN Service: ? Author Type: Registered Nurse Type: Nursing Progress Note Filed: 10/30/2024 12:35 Note Text: PATIENT EDUCATION TOPIC: PROCEDURE / SURGERY: Procedure/Surgery: Port Placement PATIENT NAME: Marimar Wang PATIENT LOCATION: AV Rad Proc/AV Rad Proc READINESS TO LEARN COGNITIVE ABILITY: Alert and oriented MOTIVATION TO LEARN: Interested FAMILY SUPPORT: High - Very involved in pt care INSTRUCTION PROVIDED TO: Patient and Daughter PATIENT LEARNS BEST BY: Multiple Methods FACTORS AFFECTING LEARNING: None PHYSICAL LIMITATIONS AFFECTING LEARNING: None LEARNING RESPONSE DIAGNOSIS: ADULT: Rectal Cancer PATIENT/FAMILY RESPONSE: Verbalizes understanding of: POST-PROCEDURE INSTRUCTIONS-Correct actions to take to reduce post procedure complications PRE-PROCEDURE INSTRUCTIONS-Correct action to take to follow pre-procedure instructions METHOD OF INSTRUCTION: Written instruction/Handouts Verbal instruction FOLLOW-UP PLAN: Patient instructed to call with any further issues Follow-up with Primary Care INSTRUCTIONAL AIDS USED: NA SUPPLEMENTAL MATERIAL PROVIDED TO PATIENT: After Sedation and After Port Placement handouts given REFERRAL (RECOMMENDATION): None Electronically Signed By: Radha Quiroz [facility] CNPNon 10-28-2024 CNPN [facility] CNOVon 10-27-2024 CNOV [facility] CBC W Auto Differential pane l (Bld)on 10-26-2024 Basophils (Bld) [#/Vol] 0.04 10*3/uL Normal <0.11 [facility] Comment on above: Order Comment: Speci men Type: BLOOD SPECIMENOrdering Facility: [facility] Address: [address] [place] [address] Performed By: #### 5 7021-8 ####[facility] [id number] [place] [address] [place] Basophils/100 WBC (Bld) 1.7 % Normal C [facility] Comment on above: Order Comment: Speci men Type: BLOOD SPECIMENOrdering Facility: [facility] Address: [address] [place] [address] Performed By: #### 5 7021-8 ####[facility] [id number] [place] [address] [place] Differential cell count method Nom (Bld) Auto Normal [facility] Comment on above: Order Comment: Speci men Type: BLOOD SPECIMENOrdering Facility: [facility] Address: [address] [place] [address] Performed By: #### 5 7021-8 ####[facility] [id number] [place] [address] [place] Eosinophils (Bld) [#/Vol] 10*3/uL Normal <0.46 [facility] Comment on above: Order Comment: Speci men Type: BLOOD SPECIMENOrdering Facility: [facility] Address: [address] [place] [address] Performed By: #### 5 7021-8 ####[facility] [id number] [place] [address] [place] Eosinophils/100 WBC (Bld) 0.4 % Normal [facility] Comment on above: Order Comment: Speci men Type: BLOOD SPECIMENOrdering Facility: [facility] Address: [address] [place] [address] Performed By: #### 5 7021-8 ####[facility] [id number] [place] [address] [place] Erythrocyte distribution width (RBC) [Ratio] 19.6 % High 11.5-15.0 [facility] Comment on above: Order Comment: Speci men Type: BLOOD SPECIMENOrdering Facility: [facility] Address: [address] [place] [address] Performed By: #### 5 7021-8 ####[facility] [id number] [place] [address] [place] Hematocrit (Bld) [Volume fraction] 34.8 % Low 36.0-46.0 [facility] Comment on above: Order Comment: Speci men Type: BLOOD SPECIMENOrdering Facility: [facility] Address: [address] [place] [address] Performed By: #### 5 7021-8 ####[facility] AL[facility]SSAOCONTONCLIA [id number] [place] [address] [place] Hemoglobin (Bld) [Mass/Vol] 11.0 g/dL Low 11.5-15.5 [facility] Comment on above: Order Comment: Speci men Type: BLOOD SPECIMENOrdering Facility: [facility] Address: [address] [place] [address] Performed By: #### 5 7021-8 ####[facility] [id number] [place] [address] [place] Immature granulocytes (Bld) [#/Vol] 10*3/uL Normal <0.10 [facility] Comment on above: Order Comment: Speci men Type: BLOOD SPECIMENOrdering Facility: [facility] Address: [address] [place] [address] Performed By: #### 5 7021-8 ####[facility] [id number] [place] [address] [place] Immature granulocytes/100 WBC (Bld) 0.9 % Normal [facility] Comment on above: Order Comment: Speci men Type: BLOOD SPECIMENOrdering Facility: [facility] Address: [address] [place] [address] Performed By: #### 5 7021-8 ####[facility] [id number] [place] [address] [place] Lymphocytes (Bld) [#/Vol] 0.36 10*3/uL Low 1.00-4.00 [facility] Comment on above: Order Comment: Speci men Type: BLOOD SPECIMENOrdering Facility: [facility] Address: [address] [place] [address] Performed By: #### 5 7021-8 ####[facility] [id number] [place] [address] [place] Lymphocytes/100 WBC (Bld) 15.3 % Normal [facility] Comment on above: Order Comment: Speci men Type: BLOOD SPECIMENOrdering Facility: [facility] Address: [address] [place] [address] Performed By: #### 5 7021-8 ####[facility] [id number] [place] [address] [place] MCH (RBC) [Entitic mass] 27.0 pg Normal 26.0-34.0 [facility] Comment on above: Order Comment: Speci men Type: BLOOD SPECIMENOrdering Facility: [facility] Address: [address] [place] [address] Performed By: #### 5 7021-8 ####[facility] [id number] [place] [address] [place] MCHC (RBC) [Mass/Vol] 31.6 g/dL Normal 30.5-36.0 [facility] Comment on above: Order Comment: Speci men Type: BLOOD SPECIMENOrdering Facility: [facility] Address: [address] [place] [address] Performed By: #### 5 7021-8 ####[facility] [id number] [place] [address] [place] MCV (RBC) [Entitic vol] 85.3 fL Normal 80.0-100.0 C [facility] Comment on above: Order Comment: Speci men Type: BLOOD SPECIMENOrdering Facility: [facility] Address: [address] [place] [address] Performed By: #### 5 7021-8 ####[facility] [id number] [place] [address] [place] Monocytes (Bld) [#/Vol] 0.32 10*3/uL Normal <0.87 [facility] Comment on above: Order Comment: Speci men Type: BLOOD SPECIMENOrdering Facility: [facility] Address: [address] [place] [address] Performed By: #### 5 7021-8 ####[facility] [id number] [place] [address] [place] Monocytes/100 WBC (Bld) 13.6 % Normal [facility] Comment on above: Order Comment: Speci men Type: BLOOD SPECIMENOrdering Facility: [facility] Address: [address] [place] [address] Performed By: #### 5 7021-8 ####[facility] [id number] [place] [address] [place] Neutrophils (Bld) [#/Vol] 1.60 10*3/uL Normal 1.45-7.50 [facility] Comment on above: Order Comment: Speci men Type: BLOOD SPECIMENOrdering Facility: [facility] Address: [address] [place] [address] Performed By: #### 5 7021-8 ####[facility] [id number] [place] [address] [place] Neutrophils/100 WBC (Bld) 68.1 % Normal [facility] Comment on above: Order Comment: Speci men Type: BLOOD SPECIMENOrdering Facility: [facility] Address: [address] [place] [address] Performed By: #### 5 7021-8 ####[facility] [id number] [place] [address] [place] Nucleated RBC (Bld) [#/Vol] 10*3/uL Normal <0.01 [facility] Comment on above: Order Comment: Speci men Type: BLOOD SPECIMENOrdering Facility: [facility] Address: [address] [place] [address] Performed By: #### 5 7021-8 ####[facility] MARSHALLIA [id number] [place] [address] [place] Nucleated RBC/100 WBC (Bld) [Ratio] 0.0 /100 WBC Normal [facility] Comment on above: Order Comment: Speci men Type: BLOOD SPECIMENOrdering Facility: [facility] Address: [address] [place] [address] Performed By: #### 5 7021-8 ####[facility] ALYSSAOCONTONCLIA [id number] [place] [address] [place] Platelet mean volume (Bld) [Entitic vol] 9.6 fL Normal 9.0-12.7 [facility] Comment on above: Order Comment: Speci men Type: BLOOD SPECIMENOrdering Facility: [facility] Address: [address] [place] [address] Performed By: #### 5 7021-8 ####[facility] [id number] [place] [address] [place] Platelets (Bld) [#/Vol] 147 10*3/uL Low 150-400 [facility] Comment on above: Order Comment: Speci men Type: BLOOD SPECIMENOrdering Facility: [facility] Address: [address] [place] [address] Performed By: #### 5 7021-8 ####[facility] ALYSSAOCONTONCLIA [id number] [place] [address] [place] RBC (Bld) [#/Vol] 4.08 10*6/uL Normal 3.90-5.20 [facility] Comment on above: Order Comment: Speci men Type: BLOOD SPECIMENOrdering Facility: [facility] Address: [address] [place] [address] Performed By: #### 5 7021-8 ####[facility] [id number] [place] [address] [place] WBC (Bld) [#/Vol] 2.35 10*3/uL Low 3.70-11.00 [facility] Comment on above: Order Comment: Speci men Type: BLOOD SPECIMENOrdering Facility: [facility] Address: [facility] [place] [address] Performed By: #### 5 7021-8 ####[facility] [id number] [place] [id number] [place] CNPNon 10-26-2024 CNPN Telephone (AVXRPR) -------- MARIMAR WANG ([id number]) 1960 F Date Time Provider Department 10/26/24 JESSICA DIAS During your visit today, we recorded the following information about you: Jessica Dias RN 10/26/2024 2:07 PM Signed Unable to reach pt regarding pre procedure instructions. Call back number provided. Allergies As of Date: 10/26/2024 Noted Allergy Reaction CYMBALTA (DULOXETINE) 11/21/2023 5 - Intolerance Comments: Headaches NSAIDS (NON-STEROIDAL ANTI-INFLAM*04/16/2005 10 - Anaphylaxis Comments: Had anaphylactic reaction to Aleve VIBRAMYCIN (DOXYCYCLINE CALCIUM) 04/16/2005 10 - Anaphylaxis DILAUDID (HYDROMORPHONE (BULK)) 11/21/2023 11 - Vomiting MORPHINE 11/21/2023 11 - Vomiting HORSE/EQUINE CONTAINING PRODUCTS 11/28/2023 7 - Swelling VICODIN (HYDROCODONE-ACETAMINOPH E*11/21/2023 11 - Vomiting Comments: Can take if given antiemetic at same time Date Reviewed: 10/20/2024 Reviewed by: Tamia Rodriguez RN - Fully Assessed Reason for Visit: Radiology Pre Procedure Instructions [1506] Prescriptions as of 10/26/2024 - potassium chloride (K-TAB) 10 mEq tablet Take 1 tablet by mouth two times a day. - apixaban (ELIQUIS) 5 mg (74 tabs) Take 2 tablets (10 mg) by mouth twice daily for 7 days. Then take 1 tablet (5 mg) by mouth twice daily for 23 days - prochlorperazine (COMPAZINE) 10 mg tablet Take 1 tablet by mouth every 6 hours as needed. - dnplomrenrWLNFA-uwgxui-p idocaine (BMX 1:1:1) 1:1:1 liqd Take 10 mL by mouth every 4 hours as needed. - ondansetron (ZOFRAN) 8 mg tablet Take 1 tablet by mouth every 8 hours as needed (For chemotherapy induced nausea and vomiting.). - cholecalciferol, Vitamin D3, (VITAMIN D3) 1,250 mcg (50,000 unit) cap capsule Take 1 capsule by mouth every other week. - iv contrast (will be provided with radiology test) CT Chest W -Inject, intravenously, once for 1 dose.No IV access, insert saline lock prior to the beginning of sedation, infusion, injection of imaging exam. Discontinue saline lock post exam. If Pt. has a central line or IVAD, may access for administration according to line specific nursing protocol. Once exam is complete flush line and de-access according to line specific nursing protocol in the CT contrast administration guidelines link. - oxyCODONE-acetaminophen (PERCOCET) 5-325 mg tablet Take by mouth every 6 hours as needed. - leflunomide (ARAVA) 20 mg tablet Take 1 tablet by mouth once daily - meclizine (ANTIVERT) 25 mg tab Take 25 mg by mouth three times a day as needed (for dizziness). - atorvastatin (LIPITOR) 80 mg tablet Take 80 mg by mouth once daily. - fnlqhy-frtyxdww-dbaorgf (CREON 36) 36,000-114,000- 180,000 unit delayed release capsule Take by mouth with meals and at bedtime. With snacks also - furosemide (LASIX) 20 mg tablet Take 20 mg by mouth once daily. - budesonide, enteric coated (ENTOCORT EC) 3 mg 24 hr capsule Take 2 capsules by mouth every afternoon. - pantoprazole DR (PROTONIX) 40 mg tablet Take 40 mg by mouth once daily. - dicyclomine (BENTYL) 20 mg tablet Take 10 mg by mouth three times a day. - VITAMIN B-12 1,000 mcg tab DISSOLVE 1 TABLET BY MOUTH ONCE DAILY - amLODIPine (NORVASC) 5 mg tablet Take 7.5 mg by mouth once daily. Takes 7.5 mg each day - clopidogrel (PLAVIX) 75 mg tablet Take 75 mg by mouth once daily. - FLUoxetine (PROZAC) 20 mg capsule Take 3 capsules by mouth once daily. - abatacept/maltose (ORENCIA, WITH MALTOSE, INTRAVENOUS) Inject intravenously. - albuterol HFA (VENTOLIN HFA) 90 mcg/actuation inhaler Inhale 2 Puffs as instructed every 4 hours as needed for wheezing/shortness of breath. - buPROPion XL (WELLBUTRIN XL) 150 mg 24 hr tablet Take 1 tablet by mouth once daily. - mometasone (NASONEX) 50 mcg/actuation nasal spray Use 2 Sprays in the nose once daily. Rinse mouth after use. - acetaminophen (TYLENOL) 325 mg tablet Take by mouth every 6 hours as needed. - albuterol (PROVENTIL) 2.5 mg /3 mL (0.083 %) nebulizer solution Use 3 mL via nebulizer every 6 hours as needed for Wheezing/Shortness of Breath. - >Nebulizer For Home Nebulizer for home use. Diagnosis: Moderate persistent asthma with acute exacerbation and pneumonia Meds Comments as of 02/06/2017: [facility] use pharmacy [facility] [place] [address] Problem List As Of Date 10/26/2024 Noted Resolved Fracture of triquetrum of left wrist, closed [S*02/14/2012 07/31/2019 Rheumatoid arthritis involving multiple sites (*06/12/2012 Fibromyalgia [M79.7] 03/11/2014 Depression [F32.A] 03/11/2014 Asthma [J45.909] 03/11/2014 Abdominal pain [R10.9] 03/11/2014 04/22/2014 Mycoplasma pneumonia [J15.7] 03/23/2014 06/03/2014 Carotid artery disease (HCC) [I77.9] 04/22/2014 07/31/2019 Hyperlipidemia with target LDL less than 130 [E*06/03/2014 Insomnia [G47.00] 09/03/2014 (more content not included)... Normal [facility] CNPN Telephone (AVXRPR) -------- KATHLEENMARIMAR Neela ([id number]) 1960 F Date Time Provider Department 10/26/24 JESSICA DIAS During your visit today, we recorded the following information about you: Jessica Dias, LÓPEZ 10/26/2024 4:13 PM Signed You are scheduled for a medi port placement, On 10/30/2024. You are to arrive at 1200 pm and Report to [facility]: [facility]: Radiology Outpatient Desk [id number] You can expect to be here for 3-5 hours. Diet: Do not eat any solid food after midnight the day of/night before your procedure. You may drink clear liquids until 1000 am, which means black coffee, apple juice, black tea, or water only. Medications: Ok to take your cardiac, blood pressure, anti-seizure, and chronic pain medications with a sip of water, please take prior to arrival. Bring your current medication list. RADIOLOGY RECOMMENDS THESE MEDICATION RESTRICTIONS: Hold Eliquis for 4 doses Special concerns: Do you have any attached medical devices? Yes, nilsa. Insulin pumps must be removed before entering the procedure room. Do you wear Neulasta Onpro? No. If yes, the device must be removed before entering the procedure room. Do you use CPAP or BPAP? No. Labs: Lab-work needs to be drawn? No.. Boilermaker/Transportation: How will you be arriving for your procedure? Private car. You will need a responsible adult to accompany you to and from the procedure. Your restaurant delivery driver is required to stay with you until you are taken into the procedure room. Call [phone] with questions Allergies As of Date: 10/26/2024 Noted Allergy Reaction CYMBALTA (DULOXETINE) 11/21/2023 5 - Intolerance Comments: Headaches NSAIDS (NON-STEROIDAL ANTI-INFLAM*04/16/2005 10 - Anaphylaxis Comments: Had anaphylactic reaction to Aleve VIBRAMYCIN (DOXYCYCLINE CALCIUM) 04/16/2005 10 - Anaphylaxis DILAUDID (HYDROMORPHONE (BULK)) 11/21/2023 11 - Vomiting MORPHINE 11/21/2023 11 - Vomiting HORSE/EQUINE CONTAINING PRODUCTS 11/28/2023 7 - Swelling VICODIN (HYDROCODONE-ACETAMINOPH E*11/21/2023 11 - Vomiting Comments: Can take if given antiemetic at same time Date Reviewed: 10/20/2024 Reviewed by: Tamia Rodriguez, LÓPEZ - Fully Assessed Prescriptions as of 10/26/2024 - potassium chloride (K-TAB) 10 mEq tablet Take 1 tablet by mouth two times a day. - apixaban (ELIQUIS) 5 mg (74 tabs) Take 2 tablets (10 mg) by mouth twice daily for 7 days. Then take 1 tablet (5 mg) by mouth twice daily for 23 days - prochlorperazine (COMPAZINE) 10 mg tablet Take 1 tablet by mouth every 6 hours as needed. - nvoqnnqvfiJGDLI-twvnum-j idocaine (BMX 1:1:1) 1:1:1 liqd Take 10 mL by mouth every 4 hours as needed. - ondansetron (ZOFRAN) 8 mg tablet Take 1 tablet by mouth every 8 hours as needed (For chemotherapy induced nausea and vomiting.). - cholecalciferol, Vitamin D3, (VITAMIN D3) 1,250 mcg (50,000 unit) cap capsule Take 1 capsule by mouth every other week. - iv contrast (will be provided with radiology test) CT Chest W -Inject, intravenously, once for 1 dose.No IV access, insert saline lock prior to the beginning of sedation, infusion, injection of imaging exam. Discontinue saline lock post exam. If Pt. has a central line or IVAD, may access for administration according to line specific nursing protocol. Once exam is complete flush line and de-access according to line specific nursing protocol in the CT contrast administration guidelines link. - oxyCODONE-acetaminophen (PERCOCET) 5-325 mg tablet Take by mouth every 6 hours as needed. - leflunomide (ARAVA) 20 mg tablet Take 1 tablet by mouth once daily - meclizine (ANTIVERT) 25 mg tab Take 25 mg by mouth three times a day as needed (for dizziness). - atorvastatin (LIPITOR) 80 mg tablet Take 80 mg by mouth once daily. - asvils-clocfadz-qohactt (CREON 36) 36,000-114,000- 180,000 unit delayed release capsule Take by mouth with meals and at bedtime. With snacks also - furosemide (LASIX) 20 mg tablet Take 20 mg by mouth once daily. - budesonide, enteric coated (ENTOCORT EC) 3 mg 24 hr capsule Take 2 capsules by mouth every afternoon. - pantoprazole DR (PROTONIX) 40 mg tablet Take 40 mg by mouth once daily. - dicyclomine (BENTYL) 20 mg tablet Take 10 mg by mouth three times a day. - VITAMIN B-12 1,000 mcg tab DISSOLVE 1 TABLET BY MOUTH ONCE DAILY - amLODIPine (NORVASC) 5 mg tablet Take 7.5 mg by mouth once daily. Takes 7.5 mg each day - clopidogrel (PLAVIX) 75 mg tablet Take 75 mg by mouth once daily. - FLUoxetine (PROZAC) 20 mg capsule Take 3 capsules by mouth once daily. - abatacept/maltose (ORENCIA, WITH MALTOSE, INTRAVENOUS) Inject intravenously. - albuterol HFA (VENTOLIN HFA) 90 mcg/actuation inhaler Inhale 2 Puffs as instructed every 4 hours as needed for wheezing/shortness of breath. - buPROPion XL (WELLBUTRIN XL) 150 mg 24 hr tablet Take 1 t (more content not included)... Normal [facility] CNPN Normal [facility] L499.0042on 10-25-2024 Trop T High Sen 13 ng/L Normal <=14 [facility] Comment on above: Result Comment: Hemo lysis present, Results??could be affected. ?? Performed By: #### L 100.0100, L500.2500 #### [facility] [address] [place], [place], [id number] 12 Lead EKGon 10-24-2024 12 Lead EKG [facility] Cardiovascular Services [address] [place] [address] 12 Lead EKG 10/24/242128 MR#: [id number] Acct: [id number] Name: MARIMAR WANG Rep #: [id number] : 1960 64 From: Ortega Wallis MD Attending Dr: Dr. Rigoberto Dow DO Status: DEP ER Ordering Dr: Josh Bates 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-C Date: 10/24/24 Location: ED Sex: F C Admitted: Test Reason : PAIN Blood Pressure : */* mmHG Vent. Rate : 81 BPM Atrial Rate : 81 BPM P-R Int : 142 ms QRS Dur : 90 ms QT Int : 388 ms P-R-T Axes : 75 44 53 degrees QTcB Int : 450 ms Normal sinus rhythm Left ventricular hypertrophy with repolarization abnormality ( Sokolow-Raines ) Abnormal ECG When compared with ECG of 13-Dec-2015 16:38, Nonspecific T wave abnormality now evident in Lateral leads Confirmed by Ortega Wallis ([id number]), science editor SARAH SIDDIQI ([id number]) on 10/29/2024 10:02:59 AM Referred By: Confirmed By: Ortega Wallis 10/29/24 1003 Date Ortega Wallis MD CC: 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-C Julio Arriaga; STEFANOC Josh Bates; Dr. Rigoberto Dow, DO Signed Normal [facility] Abdomen/Pelvis W IV Cont ONL Yon 10-24-2024 Abdomen/Pelvis W IV Cont ONLY [facility] Imaging Services [address] [place] [address] Abdomen/Pelvis W IV Cont ONLY MR#: [id number] Acct: [id number] Name: MARIMAR WANG Rep #: [id number] : 1960 F 64 From: Betsey Obrien MD PCP: [facility] Arriola Status: REG ER Study: Abdomen/Pelvis W IV Cont ONLY Date of Exam: Exam# [id number] Ordering Dr: Josh Bates 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-Marga PROCEDURE: ABDOMEN/PELVIS W IV CONT ONLY 10/24/2024 REASON FOR EXAM: ABDOMINAL PAIN TECHNIQUE: Abdomen and pelvis CT with intravenous contrast. Coronal and Sagittal reconstruction series were provided. One or more dose reduction techniques were used (e.g., Automated exposure control, adjustment of the mA and/or kV according to patient size, use of iterative reconstruction technique. COMPARISON: 09/02/2024; FINDINGS: Lower chest: There is a stable area of wedge-shaped consolidation with volume loss in the right lung base with an associated trace pleural effusion. Liver: Unremarkable. Biliary/gallbladder: Unremarkable. Pancreas: Unremarkable. Spleen: Unremarkable. Adrenal glands: Unremarkable. Kidneys: Unremarkable. Gastrointestinal/periton eum: An enteric clip is present in the gastric antral lumen. There is a small hiatal hernia with postoperative changes present of a Vanessa fundoplication. A small clip is also present in the transverse portion of the colon there are no dilated loops of bowel. Mild colonic diverticulosis is present.The appendix is unremarkable.No free air or free fluid. Vascular: Mild scattered atherosclerotic calcifications are present. Lymph nodes: No enlarged lymph nodes by CT size criteria. Pelvic organs: Unremarkable. Bladder: Indwelling Ash catheter in satisfactory position. Bones: There is a left total hip arthroplasty. Soft tissues: Unremarkable. CT/Abdomen/Pelvis W IV Cont ONLY IMPRESSION: 1. No acute abnormality of the abdomen and pelvis. 2. Indwelling Ash catheter in satisfactory position. 3. Wedge-shaped, pleural-based opacity in the right lung base with volume loss and an associated trace pleural effusion, possibly a chronic postinfectious/inflammat ory process. [facility] CC: [facility] Arriaga; [facility] Bates Bike Mechanic: Signed Normal [facility] Absolute lymphocyte countOrd ered By: Josh Bates on 10-24-2024 Lymphocytes Auto (Unsp spec) [#/Vol] 0.48 10*3/uL Low 0.83-4.51 [facility] Absolute neutrophil countOrd ered By: Josh Bates on 10-24-2024 Neutrophils (Bld) [#/Vol] 1.5 10*3/uL Low 2.0-7.7 [facility] Anion gap in Serum or Plasma Ordered By: Josh Bates on 10-24-2024 Anion gap [Moles/Vol] 11 mmol/L 5-15 [facility] Automated lymphocyte count a s percentage of total leukocytesOrdered By: Josh Bates on 10-24-2024 Lymphocytes/100 WBC Auto (Unsp spec) 18.2 % Low 19-41 [facility] BUN/creatinine ratioOrdered By: Josh Bates on 10-24-2024 Urea nitrogen/Creatinine [Mass ratio] 11.6 mg/mg 10- [facility] Basic Metabolic Profile (BMP )on 10-24-2024 BUN/CRE 11.6 RATIO Normal - [facility] Comment on above: Performed By: #### L 100.0100, L500.2500 #### [facility] [address] [place], [address] Calcium [Mass/Vol] 8.9 mg/dL Normal 7.6-11.0 [facility] Comment on above: Performed By: #### L 100.0100, L500.2500 #### [facility] [address] [place], [address] Chloride [Moles/Vol] 105 mmol/L Normal 98-108 [facility] Comment on above: Performed By: #### L 100.0100, L500.2500 #### [facility] [address] [place], [address] CO2 [Moles/Vol] 21.7 mmol/L Normal 21.0-32.0 [facility] Comment on above: Performed By: #### L 100.0100, L500.2500 #### [facility] [address] [place], [address] Creatinine [Mass/Vol] 0.67 mg/dL Low 0.70-1.20 [facility] Comment on above: Performed By: #### L 100.0100, L500.2500 #### [facility] [address] [place], [address] ECRCL 73.11 ml/min Normal 50-250 [facility] Comment on above: Performed By: #### L 100.0100, L500.2500 #### [facility] [address] [place], [address] GAP 11 Normal 5-15 [facility] Comment on above: Performed By: #### L 100.0100, L500.2500 #### [facility] [address] [place], [address] GFR/1.73 sq M.predicted among non-blacks MDRD (S/P/Bld) [Vol rate/Area] 97 mL/min/{1.73_m2} Normal >60 [facility] Comment on above: Result Comment: mL/m in/1.73m2 CKD-EPI Creatinine Equation (2020) Performed By: #### L 100.0100, L500.2500 #### [facility] [address] [place], [address] Glucose [Mass/Vol] 85 mg/dL Normal 70-99 [facility] Comment on above: Performed By: #### L 100.0100, L500.2500 #### [facility] [address] [place], [address] Potassium [Moles/Vol] 3.1 mmol/L Low 3.3-5.1 [facility] Comment on above: Performed By: #### L 100.0100, L500.2500 #### [facility] [address] [place], [address] Sodium [Moles/Vol] 137 mmol/L Normal 133-145 [facility] Comment on above: Performed By: #### L 100.0100, L500.2500 #### [facility] [address] [place], [address] Urea nitrogen [Mass/Vol] 8 mg/dL Normal 4-19 [facility] Comment on above: Performed By: #### L 100.0100, L500.2500 #### [facility] [address] [place], [place], [address] Basophil percentageOrdered B y: Josh Bates on 10-24-2024 Basophils/100 WBC (Bld) 0.8 % 0-1 [facility] Bilirubin Test strip Ql (U)O rdered By: Josh Bates on 10-24-2024 Bilirubin Ql (U) Negative Negative [facility] Blood manual differential co mment interpretation (narrative result)Ordered By: Josh Bates on 10-24-2024 Manual differential comment Yair (Bld) [Interp] SCANNED [facility] Comment on above: LYMPHOPENIA PRESENT CTA Chest W/WO Contraston CTA Chest W/WO Contrast [facility] Imaging Services [address] [place] [place], [place] [address] CTA Chest W/WO Contrast MR#: [id number] Acct: [id number] Name: MARIMAR WANG Rep #: [id number] : 1960 F 64 From: Betsey Obrien MD PCP: [facility] Arriola Status: REG ER Study: CTA Chest W/WO Contrast Date of Exam: 10/24/24 Exam# [id number] Ordering Dr: Josh Bates PROCEDURE: CTA CHEST W/WO CONTRAST 10/24/2024 REASON FOR EXAM: ABDOMINAL PAIN TECHNIQUE: CTA imaging of the abdomen and pelvis with intravenous contrast. Multiplanar and MIP reconstructions performed. One or more dose reduction techniques were used (e.g., Automated exposure control, adjustment of the mA and/or kV according to patient size, use of iterative reconstruction technique). COMPARISON: 12/13/2023; 10/24/2024 FINDINGS: Lungs/pleura: Wedge-shaped area of pleural-based opacity in the right lung base with a trace associated pleural effusion.There is a calcified pulmonary nodule in the left upper lobe. Mild fibrotic changes are present in the upper lung barrios. Pulmonary arteries: No evidence of pulmonary embolus. Cardiovascular: The heart is normal in size.Mild coronary artery calcifications are present.Mild scattered atherosclerotic calcifications are present. Pericardium: No effusion. Mediastinum: Unremarkable. Lymph nodes: There is a stable partially calcified nodule or lymph node in the prevascular region measuring 2.7 x 1.7 cm. Additional smaller partially calcified lymph nodes are present in the left hilar region. Bones: No acute osseous abnormality.Chronic fracture deformities present of multiple anterior bilateral ribs. Soft tissues: Unremarkable. Upper abdomen: Small hiatal hernia with a Vanessa fundoplication present. CT/CTA Chest W/WO Contrast IMPRESSION: 1. No acute pulmonary embolus identified. 2. Chronic pleural-based wedge-shaped area of consolidation in the right lung base with volume loss and an associated trace pleural effusion, possibly postinfectious/inflammat ory. A chronic pulmonary infarction could also have this appearance. 3. Stable prominent partially calcified mediastinal lymph node enlargement, likely due to remote granulomatous disease. 4. Mild pulmonary fibrotic changes in the upper lung zones. Reading Location: [facility] CC: [facility] Arriaga; [facility] Bates Bike Mechanic: Signed Normal [facility] Carbon dioxide, total [Moles /volume] in Central venous bloodOrdered By: Josh Bates on 10-24-2024 CO2 [Moles/Vol] 21.7 mmol/L 21.0-32.0 [facility] Chloride assayOrdered By: Cy Bates on 10-24-2024 Chloride [Moles/Vol] 105 mmol/L 98-108 [facility] Emergency Department Summary on 10-24-2024 Emergency Department Summary [facility] Medical Records Department [address] [place] [address] Emergency Department Summary 10/24/24 MR#: [id number] Acct: [id number] Name: MARIMAR WANG Rep #: [id number] : 1960 64 From: Rigoberto Napier PCP: [facility] Arriola Status:DEP ER Location: ED HPI History of Present Illness Chief Complaint: Shortness of Breath Narrative Narrative: Patient is a 64-year-old female with history of Crohn's disease, CHF COPD for myalgia, RA who is currently being treated for rectal cancer, vaginal wall cancer. Patient is currently seeing Dr. Smith, diagnosed in the early middle August 2024. Patient has undergone 1 round of chemotherapy as well as radiation Saturday through Saturday. Patient's next course of radiation and chemotherapy will be November 02, 2024. Patient states over the last day and a half, she is been having right sided chest pain, today she became more short of breath. She did have a port that did develop a clot, she is currently on Eliquis. This was found out October 20, 2024. Patient did call the on-call oncologist who told him to go to the [facility] apartment. Patient also states that over the last several weeks has been having difficulty urinating, and not feeling like she is emptying. Narrative Narrative: Patient is a 64-year-old female with history of Crohn's disease, CHF COPD for myalgia, RA who is currently being treated for rectal cancer, vaginal wall cancer. Patient is currently seeing Dr. Bennett, diagnosed in the early middle August 2024. Patient has undergone 1 round of chemotherapy as well as radiation Saturday through Saturday. Patient's next course of radiation and chemotherapy will be November 02, 2024. Patient states over the last day and a half, she is been having right sided chest pain, today she became more short of breath. She did have a PICC line that did develop a clot, she is currently on Eliquis. This was found out October 20, 2024. Patient did call the on-call oncologist who told him to go to the [facility] apartment. Patient also states that over the last several weeks has been having difficulty urinating, and not feeling like she is emptying. [facility] Medical History 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 Mass of anus Perirectal abscess History of Crohn's disease Psoriatic arthritis Psoriasis Internal derangement of right knee Wears glasses Post-menopausal Depression Anxiety Ambulates with cane Injury of back Difficulty swallowing History of IBS History of hiatal hernia Former smoker Shortness of breath on exertion Chronic cough History of echocardiogram History of stress test Hypertension Cardiology follow-up encounter History of CHF (congestive heart failure) History of irregular heartbeat Acute pharyngitis, unspecified URI (upper respiratory infection) Contact with or suspected exposure to other viral communicable disease History of partial replacement of left hip joint using bipolar prosthesis Vitamin D deficiency HLD (hyperlipidemia) Insomnia Dry eye Regular astigmatism, bilateral PVCs (premature ventricular contractions) Coronary artery stenosis Chronic diastolic CHF (congestive heart failure) Iron malabsorption Osteoarthritis Lumbar spondylosis Osteoporosis Congenital cataract Intermittent palpitations Nausea TIA (transient ischemic attack) Acute maxillary sinusitis, unspecified Acute ethmoidal sinusitis, unspecified Acute frontal sinusitis, unspecified COPD exacerbation Foreign body in conjunctival sac, left eye, initial encounter Acute bacterial conjunctivitis Influenza A Acute bronchitis Back pain Limb weakness Asthma Anemia Arthritis Home Medications ???Medication ???Instructions ???Recorded ???Last Taken ???Type albuterol sulfate 90 mcg/actuation 2 puff inhalation Q4H PRN PRN Unknown History aerosol inhaler Shortness Of Breath fluoxetine 20 mg capsule 60 mg PO QHS MENTAL HEALTH 6 09/01/24 History peg [id number] n 1 1 drp OP 4X/DAY DRY EYES 11/13/17 03/19/24 History %-0.2 %-0.2 % eye drops (Dry Eye Relief) leflunomide 20 mg tablet (Arava) 20 mg PO QHS RA 03/22/18 09/01/24 History amlodipine 5 mg tablet 7.5 mg PO QHS BP 08/15/22 09/01/24 History mometasone 50 mcg/actuation nasal 2 spray intranasal .QAM ALLERGIES 08/15/22 09/01/24 History spray ergocalciferol (vitamin D2) 1,250 1,250 mcg PO .EVERY OTHER WEEK 08/26/24 History mcg (50,000 unit) capsule (Vitamin SUPPELEMNT D2) mecobalamin (vitamin B12) 1,000 1,000 mcg sublingual QHS SUPPLEMEN T 12/06/22 09/01/24 History mcg disintegrating tablet,sublingual abatacept 50 mg/0.4 mL 50 mg subcut QMONTH RA 12/17/22 History subcutaneous syringe (Orencia) Held on 10/02/24. Instru (more content not included)... Normal [facility] Eosinophil percentageOrdered By: Josh Bates on 10-24-2024 Eosinophils/100 WBC (Bld) 0.8 % 0-5 [facility] Epithelial cells.squamous LM Ql (Urine sed)Ordered By: Josh Bates on 10-24-2024 Epithelial cells.squamous LM.HPF (Urine sed) [#/Area] 0 /[HPF] 5-10 [facility] Erythrocyte distribution wid th ratioOrdered By: Josh Bates on 10-24-2024 Erythrocyte distribution width (RBC) [Ratio] 18.9 % High 11.6-14.6 [facility] Erythrocyte distribution wid th standard deviationOrdered By: Josh Bates on 10-24-2024 Erythrocyte distribution width (RBC) [Entitic vol] 54.4 fL High 35.1-43.9 [facility] Erythrocyte distribution width (RBC) [Ratio] 54.4 fl High 35.1-43.9 [facility] Estimation of creatinine mikey aranceOrdered By: Josh Bates on 10-24-2024 Estimated Creatinine Clearance Calc 73.11 ml/min 50-250 [facility] GFR/1.73 sq M.predicted brunilda g non-blacks MDRD (S/P/Bld) [Vol rate/Area]Ordered By: Josh Bates on 10-24-2024 Estimated GFR (MDRD) Non-Af Amer 97 >60 [facility] Comment on above: mL/min/1.73m2 CKD-EP I Creatinine Equation (2020) Glomerular filtration rate ( GFR) estimation/1.73 sq m using serum, plasma, or whole bOrdered By: Josh Bates on 10-24-2024 GFR/1.73 sq M.predicted among non-blacks MDRD (S/P/Bld) [Vol rate/Area] 97 mL/min/{1.73_m2} >60 [facility] Comment on above: mL/min/1.73m2 CKD-EP I Creatinine Equation (2020) Glucose Ql (U)Ordered By: Cy Bates on 10-24-2024 Urine Glucose (UA) Normal mg/dl Normal [facility] Hematocrit Auto (Bld) [Volum e fraction]Ordered By: Josh Bates on 10-24-2024 Hematocrit (Bld) [Volume fraction] 31.2 % Low 37-47 [facility] Hemoglobin measurementOrdere d By: Josh Bates on 10-24-2024 Hemoglobin (Bld) [Mass/Vol] 10.1 g/dL Low 12.0-15.0 [facility] Immature granulocytes/100 WB C Auto (Bld)Ordered By: Josh Bates on 10-24-2024 Immature granulocytes/100 WBC (Bld) 0.400 % 0.0-0.9 [facility] Comment on above: IG% - Immature Granu locytes (promyelocytes, myelocytes and metamyelocytes) > 1% indicates that a LEFT SHIFT is Present. Influenza virus A and B and SARS-CoV-2 (COVID-19) and Respiratory syncytial virus RNAOrdered By: Josh Bates on 10-24-2024 SARS-CoV-2 (COVID-19) RNA CORAL+probe Ql (Unsp spec) [facility] Ketones Test strip Ql (U)Ord ered By: Josh Bates on 10-24-2024 Ketones Ql (U) Negative Negative [facility] L501.4021on 10-24-2024 Trop T High Sen 14 ng/L Normal <=14 [facility] Comment on above: Performed By: #### L 503.7505, L501.4021 ####[facility] [id number] [facility]. [place], [place], [address] L503.7505on 10-24-2024 Natriuretic peptide B (Bld) [Mass/Vol] 1345 pg/mL High <=900 [facility] Comment on above: Result Comment: Hear t Failure Unlikely: < 300 pg/mL Heart Failure Likely < 50 Years: > 450 pg/mL 50-75 Years: > 900 pg/mL >75 Years: > 1800 pg/mL Performed By: #### L 503.7505, L501.4021 ####[facility] [address] [facility] [place], [place], [address] Laboratory - Chemistry and C hemistry - challengeOrdered By: Josh Bates on 10-24-2024 Natriuretic peptide B (Bld) [Mass/Vol] 1345 pg/mL High <900 [facility] Comment on above: Heart Failure Unlike ly: < 300 pg/mLHeart Failure Likely< 50 Years: > 450 pg/mL50-75 Years: > 900 pg/mL>75 Years: > 1800 pg/mL Lymphocytes Auto (Unsp spec) [#/Vol]Ordered By: Josh Bates on 10-24-2024 Lymphocytes (Bld) [#/Vol] 0.48 10*3/uL Low 0.83-4.51 [facility] Lymphocytes/100 WBC Auto (Un sp spec)Ordered By: Josh Bates on 10-24-2024 Lymphocytes/100 WBC (Bld) 18.2 % Low 19-41 [facility] M100.678on 10-24-2024 M100.678 SARS-CoV-2 (COVID 19 ) Negative INFLUENZA A Negative INFLUENZA B Negative RSV PCR Negative Normal [facility] Comment on above: Performed By: #### M 100.678 ####[facility] [address] [place], [address] MCV (mean corpuscular volume ) determinationOrdered By: Josh Bates on 10-24-2024 MCV (RBC) [Entitic vol] 84.6 fL 81-99 [facility] Manual differential comment Yair (Bld) [Interp]Ordered By: oJsh Bates on 10-24-2024 Differential Comment SCANNED [facility] Comment on above: LYMPHOPENIA PRESENT Mean corpuscular hemoglobin (MCH) determinationOrdered By: Josh Bates on 10-24-2024 MCH (RBC) [Entitic mass] 27.4 pg 27.0-32.0 [facility] Mean corpuscular hemoglobin concentration (MCHC) determinationOrdered By: Josh Bates on 10-24-2024 MCHC (RBC) [Mass/Vol] 32.4 g/dL 32-36 [facility] Mean platelet volume determi nationOrdered By: Josh Bates on 10-24-2024 Platelet mean volume (Bld) [Entitic vol] 10.2 fL 6.2-12.0 [facility] Microscopic analysis of urin e for red blood cells (RBC)Ordered By: Josh Bates on 10-24-2024 Microscopic analysis of urine for red blood cells (RBC) 0 SEEN /hpf 0-5 [facility] Urine RBC 0 SEEN /hpf 0-5 [facility] Monocyte percentageOrdered B y: Josh Bates on 10-24-2024 Monocytes/100 WBC (Bld) 24.2 % High 0-10 [facility] Mucus LM Ql (Urine sed)Order ed By: Josh Bates on 10-24-2024 Mucus Ql (Urine sed) 0 SEEN /hpf [facility] Neutrophil percentageOrdered By: Josh Bates on 10-24-2024 Neutrophils/100 WBC (Bld) 55.6 % 47-70 [facility] Nitrite Test strip Ql (U)Ord ered By: Josh Bates on 10-24-2024 Nitrite Ql (U) Negative Negative [facility] No Panel InformationOrdered By: Josh Bates on 10-24-2024 Troponin T High Sensitivity 14 ng/L <14 [facility] Nucleated red blood cell per centageOrdered By: Josh Bates on 10-24-2024 Nucleated RBC/100 WBC (Bld) [Ratio] 0 % 0-5 [facility] Pathologist review Yair (Unsp spec) [Interp]Ordered By: Josh Bates on 10-24-2024 Differential Pathologist's Review May [facility] Platelet countOrdered By: Cy Bates on 10-24-2024 Platelets (Bld) [#/Vol] 110 10*3/uL Low 150-450 [facility] Potassium (Unsp spec) [Mass/ Vol]Ordered By: Josh Bates on 10-24-2024 Potassium [Moles/Vol] 3.1 mmol/L Low 3.3-5.1 [facility] Potassium measurement (mass/ volume)Ordered By: Josh Bates on 10-24-2024 Potassium (Unsp spec) [Mass/Vol] 3.1 mmol/L Low 3.3-5.1 [facility] Protein Test strip Ql (U)Ord ered By: Josh Bates on 10-24-2024 Protein Ql (U) 15 mg/dl High Negative [facility] RBC Auto (Bld) [#/Vol]Ordere d By: Josh Bates on 10-24-2024 RBC (Bld) [#/Vol] 3.69 10*6/uL Low 4.2-5.4 [facility] Review by pathologistOrdered By: Josh Bates on 10-24-2024 Pathologist review Yair (Unsp spec) [Interp] N/A [facility] Comment on above: Pathology review can celed due to updated review criteria.Previous reported result: November brynn Edited by: TIFF on 12/03/24:1202 AMENDED REPORT 12/03/24 1202 PATH REV previously reported as: November brynn Serum creatinine measurement (mass/volume)Ordered By: Josh Bates on 10-24-2024 Creatinine [Mass/Vol] 0.67 mg/dL Low 0.70-1.20 [facility] Serum glucose measurement (m ass/volume)Ordered By: Josh Bates on 10-24-2024 Glucose [Mass/Vol] 85 mg/dL 70-99 [facility] Serum or plasma calcium alexis urement (mass/volume)Ordered By: Josh Bates on 10-24-2024 Calcium [Mass/Vol] 8.9 mg/dL 7.6-11.0 [facility] Serum or plasma urea nitroge n measurement (mass/volume)Ordered By: Josh Bates on 10-24-2024 Urea nitrogen [Mass/Vol] 8 mg/dL 4-19 [facility] Sodium levelOrdered By: Josh Bates on 10-24-2024 Sodium [Moles/Vol] 137 mmol/L 133-145 [facility] Squamous epithelial cells de tection in urine sediment by light microscopyOrdered By: Josh Bates on 10-24-2024 Epithelial cells.squamous LM Ql (Urine sed) 0 SEEN /hpf 5-10 [facility] Troponin T.cardiac High sens itivity method [Mass/Vol]Ordered By: Josh Bates on 10-24-2024 Troponin T High Sensitivity 2 Hour 13 ng/L <14 [facility] Comment on above: Hemolysis present, R esults could be affected. Troponin T.cardiac [Mass/vol ume] in Serum or Plasma by High sensitivity methodOrdered By: Josh Bates on 10-24-2024 Troponin T.cardiac High sensitivity method [Mass/Vol] 13 ng/L <14 [facility] Comment on above: Hemolysis present, R esults could be affected. Urinalysis, Completeon 10-24 BACTERIA 0 SEEN Normal None Seen [facility] Comment on above: Order Comment: RENALDO TER SPECIMEN Performed By: #### L 400.0001 ####[facility] [address] [place], [address] EPI,SQUAMOUS 0 SEEN Normal 5-10 [facility] Comment on above: Order Comment: RENALDO TER SPECIMEN Performed By: #### L 400.0001 ####[facility] [address] [facility] [address] Mucus Ql (Urine sed) 0 SEEN Normal [facility] Comment on above: Order Comment: RENALDO TER SPECIMEN Performed By: #### L 400.0001 ####[facility] [address] [facility] [address] RBC 0 SEEN Normal 0-5 [facility] Comment on above: Order Comment: RENALDO TER SPECIMEN Performed By: #### L 400.0001 ####[facility] [address] [place], [address] WBC 0 SEEN Normal 0-5 [facility] Comment on above: Order Comment: RENALDO TER SPECIMEN Performed By: #### L 400.0001 ####[facility] [address] [place], [address] Urine blood detectionOrdered By: Josh Bates on 10-24-2024 Urine Occult Blood 10 /ul High Negative [facility] Urine clarityOrdered By: Maegan Bates on 10-24-2024 Clarity (U) Clear Clear [facility] Urine color determinationOrd ered By: Josh Bates on 10-24-2024 Color (U) Yellow Yellow [facility] Urine glucose detectionOrder ed By: Josh Bates on 10-24-2024 Glucose Ql (U) Normal mg/dl Normal [facility] Urine leukocyte esterase det ection by dipstickOrdered By: Josh Bates on 10-24-2024 Leukocyte esterase Test strip Ql (U) Negative Negative [facility] Urine pHOrdered By: Josh russ on 10-24-2024 pH (U) 6.0 [pH] 5.0 - 8.0 [facility] Urine sediment bacteria coun t by microscopy (number/high power field)Ordered By: Josh Bates on 10-24-2024 Bacteria LM.HPF (Urine sed) [#/Area] 0 /[HPF] None Seen [facility] Urine specific gravity measu rementOrdered By: Josh Bates on 10-24-2024 Specific gravity (U) [Rel density] 1.010 1.002-1.030 [facility] Urine urobilinogen measureme ntOrdered By: Josh Bates on 10-24-2024 Urobilinogen Ql (U) Normal mg/dl Normal [facility] Urobilinogen Ql (U)Ordered B y: Josh Bates on 10-24-2024 Urine Urobilinogen Normal mg/dl Normal [facility] White blood cell (WBC) count Ordered By: Josh Bates on 10-24-2024 WBC (Bld) [#/Vol] 2.6 10*3/uL Low 4.4-11.0 [facility] White blood cell countOrdere d By: Josh Bates on 10-24-2024 Urine WBC 0 SEEN /hpf 0-5 [facility] White blood cell count 0 SEEN /hpf 0-5 [facility] Urinalysis complete panel (U )on 10-22-2024 Bacteria uL 1121.1 uL High - 941 uL [facility] Bilirubin Ql (U) Negative Negative [facility] Clarity (Unsp spec) Clear Clear [facility] Color (U) Yellow Yellow [facility] Epithelial cells LM.HPF (Urine sed) [#/Area] None Seen /HPF [facility] Glucose Test strip (U) [Mass/Vol] Negative Negative [facility] Hemoglobin Ql (U) Negative Negative [facility] Hyaline casts (Urine sed) [#/Area] 0 /[LPF] 0 /LPF [facility] Interpretation and review of laboratory results Abnormal [facility] Ketones Ql (U) Trace Abnormal Negative [facility] Leukocyte esterase Test strip Ql (U) Negative [facility] Nitrite Ql (U) Negative Negative [facility] pH (U) 6 [pH] NINF - 8.5 [facility] Protein (U) [Mass/Vol] 1+ Abnormal Negative [facility] RBC LM.HPF (Urine sed) [#/Area] 3-5 /HPF Abnormal 0-2 /HPF [facility] Specific gravity (U) [Rel density] 1.024 1.005 - 1.030 [facility] Urobilinogen Ql (U) 0.2 EU/dL 0.2-1.0 EU/dL [facility] WBC LM.HPF (Urine sed) [#/Area] 6-10 /HPF Abnormal 0-5 /HPF [facility] This test was develo ped and its performance characteristics determined by [facility]'s [facility] [place] ([facility]). It has not been cleared or approved by the FDA. -[facility] is regulated under CLIA as qualified to perform high-complexity testing. This test is used for clinical purposes. It should not be regarded as investigational or for research. [facility] BACTERIA UL 1121.1 uL High Negative [facility] Comment on above: Order Comment: Speci men Type: URINE SPECIMENOrdering Facility: [facility] Address: [address] [place] [address] Performed By: #### 2 4356-8 ####[facility] LABIA [id number] [place] [address] [place] Bilirubin Ql (U) Negative Normal Negative [facility] Comment on above: Order Comment: Speci men Type: URINE SPECIMENOrdering Facility: [facility] Address: [address] [place] [address] Performed By: #### 2 4356-8 ####[facility] LABIA [id number] [place] [address] [place] Clarity (Unsp spec) Clear Normal [facility] Comment on above: Order Comment: Speci men Type: URINE SPECIMENOrdering Facility: [facility] Address: [address] [place] [address] Performed By: #### 2 4356-8 ####[facility] LABIA [id number] [place] [address] [place] Color (U) Yellow Normal Yellow [facility] Comment on above: Order Comment: Speci men Type: URINE SPECIMENOrdering Facility: [facility] Address: [address] [place] [address] Performed By: #### 2 4356-8 ####[facility] LABCLIA [id number] [place] [id number] [place] Epithelial cells LM.HPF (Urine sed) [#/Area] None Seen Normal [facility] Comment on above: Order Comment: Speci men Type: URINE SPECIMENOrdering Facility: [facility] Address: [address] [place] [address] Performed By: #### 2 4356-8 ####[facility] LABCLIA [id number] [address] STATES OF [facility] Glucose Test strip (U) [Mass/Vol] Negative Normal Negative [facility] Comment on above: Order Comment: Speci men Type: URINE SPECIMENOrdering Facility: [facility] Address: [address] [place] [address] Performed By: #### 2 4356-8 ####[facility] LABCLIA [id number] [place] [address] [place] Hemoglobin Ql (U) Negative Normal Negative [facility] Comment on above: Order Comment: Speci men Type: URINE SPECIMENOrdering Facility: [facility] Address: [address] [place] [address] Performed By: #### 2 4356-8 ####[facility] LABCLIA [id number] [place] [id number] [place] Hyaline casts (Urine sed) [#/Area] 0 /[LPF] Normal 0 /LPF [facility] Comment on above: Order Comment: Speci men Type: URINE SPECIMENOrdering Facility: [facility] Address: [address] [place] [address] Performed By: #### 2 4356-8 ####[facility] LABCLIA [id number] [address], [facility] [place] Ketones Ql (U) Trace Abnormal Negative [facility] Comment on above: Order Comment: Speci men Type: URINE SPECIMENOrdering Facility: [facility] Address: [address] [place] [address] Performed By: #### 2 4356-8 ####[facility] LABCLIA [id number] [address], [place] [address] [place] Leukocyte esterase Test strip Ql (U) Negative Normal Negative [facility] Comment on above: Order Comment: Speci men Type: URINE SPECIMENOrdering Facility: [facility] Address: [address] [place] [address] Performed By: #### 2 4356-8 ####[facility] LABCLIA [id number] [place] [address] [place] Nitrite Ql (U) Negative Normal Negative [facility] Comment on above: Order Comment: Speci men Type: URINE SPECIMENOrdering Facility: [facility] Address: [address] [place] [address] Performed By: #### 2 4356-8 ####[facility] LABCLIA [id number] [place] [address] [place] pH (U) 6.0 [pH] Normal <8.5 [facility] Comment on above: Order Comment: Speci men Type: URINE SPECIMENOrdering Facility: [facility] Address: [address] [place] [address] Performed By: #### 2 4356-8 ####[facility] LABCLIA [id number] [place] [address] [place] Protein (U) [Mass/Vol] 1+ Abnormal Negative [facility] Comment on above: Order Comment: Speci men Type: URINE SPECIMENOrdering Facility: [facility] Address: [address] [place] [address] Performed By: #### 2 4356-8 ####[facility] LABIA [id number] [address], [place] [address] [place] RBC LM.HPF (Urine sed) [#/Area] 3-5 /HPF Abnormal 0-2 /HPF [facility] Comment on above: Order Comment: Speci men Type: URINE SPECIMENOrdering Facility: [facility] Address: [address] [place] [address] Performed By: #### 2 4356-8 ####[facility] LABIA [id number] [place] [address] [place] Specific gravity (U) [Rel density] 1.024 Normal 1.005-1.030 [facility] Comment on above: Order Comment: Speci men Type: URINE SPECIMENOrdering Facility: [facility] Address: [address] [place] [address] Performed By: #### 2 4356-8 ####[facility] LABIA [id number] [address] [place] Urobilinogen Ql (U) 0.2 EU/dL Normal 0.2-1.0 EU/dL [facility] Comment on above: Order Comment: Speci men Type: URINE SPECIMENOrdering Facility: [facility] Address: [address] [place] [address] Performed By: #### 2 4356-8 ####[facility] LABIA [id number] [place] [address] [place] WBC LM.HPF (Urine sed) [#/Area] 6-10 /HPF Abnormal 0-5 /HPF [facility] Comment on above: Order Comment: Speci men Type: URINE SPECIMENOrdering Facility: [facility] Address: [address] [place] [address] Performed By: #### 2 4356-8 ####[facility] LABIA [id number] [address] [place] CNPNon 10-21-2024 CNPN Normal [facility] CNOVon 10-20-2024 CNOV Normal [facility] CBC W Auto Differential pane l (Bld)on 10-19-2024 Basophils (Bld) [#/Vol] 10*3/uL Normal <0.11 C [facility] Comment on above: Order Comment: Speci men Type: BLOOD SPECIMENOrdering Facility: [facility] Address: [address] [place] [address] Performed By: #### 5 7021-8 ####[facility] MILLWNCLIA [id number] [place] [address] [place] Basophils/100 WBC (Bld) 0.4 % Normal C [facility] Comment on above: Order Comment: Speci men Type: BLOOD SPECIMENOrdering Facility: [facility] Address: [address] [place] [address] Performed By: #### 5 7021-8 ####[facility] [id number] [place] [address] [place] Differential cell count method Nom (Bld) Auto Normal [facility] Comment on above: Order Comment: Speci men Type: BLOOD SPECIMENOrdering Facility: [facility] Address: [address] [place] [address] Performed By: #### 5 7021-8 ####[facility] MILLWNCLIA [id number] [place] [address] [place] Eosinophils (Bld) [#/Vol] 0.03 10*3/uL Normal <0.46 [facility] Comment on above: Order Comment: Speci men Type: BLOOD SPECIMENOrdering Facility: [facility] Address: [address] [place] [address] Performed By: #### 5 7021-8 ####[facility] MILLOCONTONCLIA [id number] [place] [address] [place] Eosinophils/100 WBC (Bld) 1.2 % Normal [facility] Comment on above: Order Comment: Speci men Type: BLOOD SPECIMENOrdering Facility: [facility] Address: [address] [place] [address] Performed By: #### 5 7021-8 ####[facility] [id number] [place] [address] [place] Erythrocyte distribution width (RBC) [Ratio] 17.1 % High 11.5-15.0 [facility] Comment on above: Order Comment: Speci men Type: BLOOD SPECIMENOrdering Facility: [facility] Address: [address] [place] [address] Performed By: #### 5 7021-8 ####[facility] [id number] [place] [address] [place] Hematocrit (Bld) [Volume fraction] 34.3 % Low 36.0-46.0 [facility] Comment on above: Order Comment: Speci men Type: BLOOD SPECIMENOrdering Facility: [facility] Address: [address] [place] [address] Performed By: #### 5 7021-8 ####[facility] [id number] [place] [address] [place] Hemoglobin (Bld) [Mass/Vol] 10.8 g/dL Low 11.5-15.5 [facility] Comment on above: Order Comment: Speci men Type: BLOOD SPECIMENOrdering Facility: [facility] Address: [address] [place] [address] Performed By: #### 5 7021-8 ####[facility] [id number] [place] [address] [place] Immature granulocytes (Bld) [#/Vol] 10*3/uL Normal <0.10 [facility] Comment on above: Order Comment: Speci men Type: BLOOD SPECIMENOrdering Facility: [facility] Address: [address] [place] [address] Performed By: #### 5 7021-8 ####[facility] [id number] [address] [place] [facility] Immature granulocytes/100 WBC (Bld) 0.4 % Normal [facility] Comment on above: Order Comment: Speci men Type: BLOOD SPECIMENOrdering Facility: [facility] Address: [address] [place] [address] Performed By: #### 5 7021-8 ####[facility] [id number] [place] [address] [place] Lymphocytes (Bld) [#/Vol] 0.26 10*3/uL Low 1.00-4.00 [facility] Comment on above: Order Comment: Speci men Type: BLOOD SPECIMENOrdering Facility: [facility] Address: [address] [place] [address] Performed By: #### 5 7021-8 ####[facility] [id number] [address] [place] [facility] Lymphocytes/100 WBC (Bld) 10.4 % Normal [facility] Comment on above: Order Comment: Speci men Type: BLOOD SPECIMENOrdering Facility: [facility] Address: [address] [place] [address] Performed By: #### 5 7021-8 ####[facility] [id number] [place] [address] [place] MCH (RBC) [Entitic mass] 26.9 pg Normal 26.0-34.0 [facility] Comment on above: Order Comment: Speci men Type: BLOOD SPECIMENOrdering Facility: [facility] Address: [address] [place] [address] Performed By: #### 5 7021-8 ####[facility] [id number] [place] [address] [place] MCHC (RBC) [Mass/Vol] 31.5 g/dL Normal 30.5-36.0 [facility] Comment on above: Order Comment: Speci men Type: BLOOD SPECIMENOrdering Facility: [facility] Address: [address] [place] [address] Performed By: #### 5 7021-8 ####[facility]ENTER[facility] [id number] [place] [address] [place] MCV (RBC) [Entitic vol] 85.5 fL Normal 80.0-100.0 C [facility] Comment on above: Order Comment: Speci men Type: BLOOD SPECIMENOrdering Facility: [facility] Address: [address] [place] [address] Performed By: #### 5 7021-8 ####[facility] [id number] [place] [address] [place] Monocytes (Bld) [#/Vol] 0.36 10*3/uL Normal <0.87 [facility] Comment on above: Order Comment: Speci men Type: BLOOD SPECIMENOrdering Facility: [facility] Address: [address] [place] [address] Performed By: #### 5 7021-8 ####[facility] [id number] [place] [address] [place] Monocytes/100 WBC (Bld) 14.4 % Normal C [facility] Comment on above: Order Comment: Speci men Type: BLOOD SPECIMENOrdering Facility: [facility] Address: [address] [place] [address] Performed By: #### 5 7021-8 ####[facility] [id number] [place] [address] [place] Neutrophils (Bld) [#/Vol] 1.83 10*3/uL Normal 1.45-7.50 [facility] Comment on above: Order Comment: Speci men Type: BLOOD SPECIMENOrdering Facility: [facility] Address: [address] [place] [address] Performed By: #### 5 7021-8 ####[facility]ITALWCTLIA [id number] [place] [address] [place] Neutrophils/100 WBC (Bld) 73.2 % Normal [facility] Comment on above: Order Comment: Speci men Type: BLOOD SPECIMENOrdering Facility: [facility] Address: [address] [place] [address] Performed By: #### 5 7021-8 ####[facility] [id number] [place] [address] [place] Nucleated RBC (Bld) [#/Vol] 10*3/uL Normal <0.01 [facility] Comment on above: Order Comment: Speci men Type: BLOOD SPECIMENOrdering Facility: [facility] Address: [address] [place] [address] Performed By: #### 5 7021-8 ####[facility] [id number] [place] [address] [place] Nucleated RBC/100 WBC (Bld) [Ratio] 0.0 /100 WBC Normal [facility] Comment on above: Order Comment: Speci men Type: BLOOD SPECIMENOrdering Facility: [facility] Address: [address] [place] [address] Performed By: #### 5 7021-8 ####[facility] [id number] [place] [address] [place] Platelet mean volume (Bld) [Entitic vol] 10.8 fL Normal 9.0-12.7 [facility] Comment on above: Order Comment: Speci men Type: BLOOD SPECIMENOrdering Facility: [facility] Address: [address] [place] [address] Performed By: #### 5 7021-8 ####[facility] NABILNCTIFFANIA [id number] [place] [address] [place] Platelets (Bld) [#/Vol] 118 10*3/uL Low 150-400 [facility] Comment on above: Order Comment: Speci men Type: BLOOD SPECIMENOrdering Facility: [facility] Address: [address] [place] [address] Performed By: #### 5 7021-8 ####[facility] ALYSSAOCONTONCLIA [id number] [place] [address] [place] RBC (Bld) [#/Vol] 4.01 10*6/uL Normal 3.90-5.20 [facility] Comment on above: Order Comment: Speci men Type: BLOOD SPECIMENOrdering Facility: [facility] Address: [address] [place] [address] Performed By: #### 5 7021-8 ####[facility] ALYSSAOCONTONCLIA [id number] [place] [address] [place] WBC (Bld) [#/Vol] 2.50 10*3/uL Low 3.70-11.00 [facility] Comment on above: Order Comment: Speci men Type: BLOOD SPECIMENOrdering Facility: [facility] Address: [address] [place] [address] Performed By: #### 5 7021-8 ####[facility] [id number] [place] [address] [place] CNPNon 10-19-2024 CNPN Normal [facility] Comprehensive metabolic 2000 panelon 10-19-2024 Albumin [Mass/Vol] 3.7 g/dL Low 3.9-4.9 [facility] Comment on above: Order Comment: Speci men Type: BLOOD SPECIMENOrdering Facility: [facility] Address: [address] [place] [address] Performed By: #### 2 4323-8 ####[facility]IG[facility] MILLTOWNCLIA [id number] [place] [address] [place] ALP [Catalytic activity/Vol] 83 U/L Normal 34-123 [facility] Comment on above: Order Comment: Speci men Type: BLOOD SPECIMENOrdering Facility: [facility] Address: [address] [place] [address] Performed By: #### 2 4323-8 ####[facility] MILLTOWNCLIA [id number] [place] [address] [place] ALT [Catalytic activity/Vol] 13 U/L Normal 7-38 [facility] Comment on above: Order Comment: Speci men Type: BLOOD SPECIMENOrdering Facility: [facility] Address: [address] [place] [address] Performed By: #### 2 4323-8 ####[facility] MILLTOWNCLIA [id number] [place] [address] [place] Anion gap [Moles/Vol] 12 mmol/L Normal 8-15 [facility] Comment on above: Order Comment: Speci men Type: BLOOD SPECIMENOrdering Facility: [facility] Address: [address] [place] [address] Performed By: #### 2 4323-8 ####[facility] MILLTOWNCLIA [id number] [place] [address] [place] AST [Catalytic activity/Vol] 18 U/L Normal 13-35 [facility] Comment on above: Order Comment: Speci men Type: BLOOD SPECIMENOrdering Facility: [facility] Address: [address] [place] [address] Performed By: #### 2 4323-8 ####[facility] MILLTOWNCLIA [id number] [place] [address] [place] Bilirubin [Mass/Vol] 0.2 mg/dL Normal 0.2-1.3 [facility] Comment on above: Order Comment: Speci men Type: BLOOD SPECIMENOrdering Facility: [facility] Address: [address] [place] [address] Performed By: #### 2 4323-8 ####[facility] RIG[facility] MILLTOWNCLIA [id number] [place] [address] [place] Calcium [Mass/Vol] 9.2 mg/dL Normal 8.5-10.2 [facility] Comment on above: Order Comment: Speci men Type: BLOOD SPECIMENOrdering Facility: [facility] Address: [address] [place] [address] Performed By: #### 2 4323-8 ####[facility] MILLTOWNCLIA [id number] [place] [address] [place] Chloride [Moles/Vol] 101 mmol/L Normal 98-107 [facility] Comment on above: Order Comment: Speci men Type: BLOOD SPECIMENOrdering Facility: [facility] Address: [address] [place] [address] Performed By: #### 2 4323-8 ####[facility] MILLTOWNCLIA [id number] [place] [address] [place] CO2 [Moles/Vol] 23 mmol/L Normal 22-30 [facility] Comment on above: Order Comment: Speci men Type: BLOOD SPECIMENOrdering Facility: [facility] Address: [address] [place] [address] Performed By: #### 2 4323-8 ####[facility] MILLTOWNCLIA [id number] [place] [address] [place] Creatinine [Mass/Vol] 0.64 mg/dL Normal 0.58-0.96 [facility] Comment on above: Order Comment: Mindy mcfarlane Type: BLOOD SPECIMENOrdering Facility: [facility] Address: [address] [place] [address] Performed By: #### 2 4323-8 ####[facility] [id number] [place] [address] [place] Creatinine and Glomerular filtration rate.predicted panel (S/P/Bld) 98 mL/min/1.73m??? Normal >=60 [facility] Comment on above: Order Comment: Mindy mcfarlane Type: BLOOD SPECIMENOrdering Facility: [facility] Address: [address] [place] [address] Result Comment: Sonia mated Glomerular Filtration Rate (eGFR) is calculated using the 2020 CKD-EPI creatinine equation. This equation utilizes serum creatinine, sex, and age as parameters. The creatinine assay has traceable calibration to isotope dilution-mass spectrometry. Refer to KDIGO guidelines for clinical interpretation. In patients with unstable renal function, e.g. those with acute kidney injury, the eGFR may not accurately reflect actual GFR. Performed By: #### 2 4323-8 ####[facility] [id number] [place] [address] [place] Glucose [Mass/Vol] 103 mg/dL High 74-99 [facility] Comment on above: Order Comment: Midny mcfarlane Type: BLOOD SPECIMENOrdering Facility: [facility] Address: [address] [place] [address] Result Comment: The [place] [employer] (ADA) provides guidance for cutoff values for fasting glucose and random glucose. The ADA defines fasting as no caloric intake for at least 8 hours. Fasting plasma glucose results between 100 to 125 mg/dL indicate increased risk for diabetes (prediabetes).Fasting plasma glucose results greater than or equal to 126 mg/dL meet the criteria for diagnosis of diabetes. In the absence of unequivocal hyperglycemia, results should be confirmed by repeat testing. In a patient with classic symptoms of hyperglycemia or hyperglycemic crisis, random plasma glucose results greater than or equal to 200 mg/dL meet the criteria for diagnosis of diabetes.Reference: Standards of Medical Care in Diabetes 2016, [place] [employer]. Diabetes Care. 2016.39(Suppl 1). Performed By: #### 2 4323-8 ####[facility] MILLCLIFFWZEVLIA [id number] [place] [address] [place] Potassium [Moles/Vol] 3.2 mmol/L Low 3.7-5.1 [facility] Comment on above: Order Comment: Speci men Type: BLOOD SPECIMENOrdering Facility: [facility] Address: [address] [place] [address] Performed By: #### 2 4323-8 ####[facility] ALYSSAROBERTLIA [id number] [place] [address] [place] Protein [Mass/Vol] 6.6 g/dL Normal 6.3-8.0 [facility] Comment on above: Order Comment: Speci men Type: BLOOD SPECIMENOrdering Facility: [facility] Address: [address] [place] [address] Performed By: #### 2 4323-8 ####[facility] HOSPITALJamirNCLIA [id number] [place] [address] [place] Sodium [Moles/Vol] 136 mmol/L Normal 136-144 [facility] Comment on above: Order Comment: Speci men Type: BLOOD SPECIMENOrdering Facility: [facility] Address: [address] [place] [address] Performed By: #### 2 4323-8 ####[facility] MILLCLIFFWNCLIA [id number] [place] [address] [place] Urea nitrogen [Mass/Vol] 9 mg/dL Normal 7-21 [facility] Comment on above: Order Comment: Speci men Type: BLOOD SPECIMENOrdering Facility: [facility] Address: [address] [place] [address] Performed By: #### 2 4323-8 ####[facility] ALYSSAJamirNCLIA [id number] [place] [address] [place] [facility] Venous Duplex US, Unilateral on 10-19-2024 Venous Duplex US, Unilateral [facility] Brad Wallis [place] [id number] Venous Duplex US, Unilateral 10/19/24 1404 MR#: [id number] Acct: [id number] Name: MARIMAR WANG Rep #: [id number] : 1960 64 From: Lincoln Richards MD Attending Dr: Dr. Josh Bennett, DO Status: REG CL I Ordering Dr: Josh Bennett DO Date: 10/19/24 Location: CVS Sex: F C Admitted: Reason For Study Reason For Study: Left arm swelling Right Proximal Left Proximal Right subclavian vein is spontaneous, widely patent, Left jugular vein is spontaneous, widely patent, phasic, with no intraluminal echogenicity noted. phasic, with no intraluminal echogenicity noted. Left subclavian vein is spontaneous, widely patent, phasic, with no intraluminal echogenicity noted. Left Arm Acute deep vein thrombosis is noted in the left Axillary V. It is patially NONCOMPRESSIBLE. Left brachial vein is compressible. Left cephalic vein is compressible. Left basilic vein is compressible. Left Lower Arm Left radial vein is compressible. Left ulnar vein is compressible. Procedure This was a unilateral left upper extremity venous doppler examination. Exam performed in department. A preliminary report was called and/or faxed to Marisa ROJAS. VL/Venous Duplex US, Unilateral Interpretation Summary Acute deep vein thrombosis noted in left axillary vein Ordering Physician: Josh Bennett Referring Physician: Julio Arriaga Performed By: Kamilah Grider RVT ??? 10/19/24 1756 Date Lincoln Richards MD CC: 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-C Julio Arriaga; Dr. Josh Bennett DO Date Dictated: 10/19/24 1404 Date Transcribed: 10/19/24 175 Bike Mechanic: Signed Normal [facility] Venous duplex ultrasound rep ortOrdered By: Lincoln Richards on 10-19-2024 [facility] [address] [place] [address] Venous Duplex US, Unilateral 10/19/241403 MR#: [id number] Acct: [id number] Name: MARIMAR WANG Rep #:[id number] : 1960 64 From: Lincoln Roberson Attending Dr: Dr. Josh Bennett DO atus: REG CLI Ordering Dr: Josh Bennett DO Date: 09/27 11/20 Location: CVS Sex: F C Admitted: Reason For Study Reason For Study: Left arm swelling Right Proximal Left Proximal Right subclavian vein is spontaneous, widely patent, Left jugular vein is spontaneous, widely patent, phasic, with no intraluminal echogenicity noted. phasic, with no intraluminal echogenicity noted. Left subclavian vein is spontaneous, widely patent, phasic, with no intraluminal echogenicity noted. Left Arm Acute deep vein thrombosis is noted in the left Axillary V. Itis patially NONCOMPRESSIBLE. Left brachial vein is compressible. Left cephalic vein is compressible. Left basilic vein is compressible. Left Lower Arm Left radial vein is compressible. Left ulnar vein is compressible. Procedure This was a unilateral left upper extremity venous doppler examination. Exam performed in department. A preliminary report was called and/or faxed to Marisa ROJAS. VL/Venous Duplex US, Unilateral Interpretation Summary Acute deep vein thrombosis noted in left axillary vein Ordering Physician: Josh Bennett Referring Physician: Julio Arriaga Performed By: Kamilah Grider RVT ??? 10/19/241755 Date _ Lincoln Richards MD CC: 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-C Julio Arriaga; Dr. Josh Bennett, DO ~ Date Dictated: 10/19/24 1404 Date Transcribed: 10/19/241755 Bike Mechanic: Signed [facility] Work Phone: CNPNon 10-16-2024 CNPN Normal [facility] CNOVon 10-13-2024 CNOV Normal [facility] CBC W Auto Differential pane l (Bld)on 10-12-2024 Basophils (Bld) [#/Vol] 0.05 10*3/uL [facility] Basophils/100 WBC (Bld) 1.4 % [facility] Differential cell count method Nom (Bld) Auto [facility] Eosinophils (Bld) [#/Vol] 0.04 10*3/uL [facility] Eosinophils/100 WBC (Bld) 1.1 % [facility] Erythrocyte distribution width (RBC) [Ratio] 15.6 % High 11.5 - 15.0 % [facility] Hematocrit (Bld) [Volume fraction] 33.8 % Low 36.0 - 46.0 % [facility] Hemoglobin (Bld) [Mass/Vol] 10.4 g/dL Low 11.5 - 15.5 g/dL [facility] Immature granulocytes (Bld) [#/Vol] [facility] Immature granulocytes/100 WBC (Bld) 0.6 % [facility] Interpretation and review of laboratory results Abnormal [facility] Lymphocytes (Bld) [#/Vol] 0.48 10*3/uL Low [facility] Lymphocytes/100 WBC (Bld) 13.7 % [facility] MCH (RBC) [Entitic mass] 25.9 pg Low 26.0 - 34.0 pg [facility] MCHC (RBC) [Mass/Vol] 30.8 g/dL 30.5 - 36.0 g/dL [facility] MCV (RBC) [Entitic vol] 84.1 fL 80.0 - 100.0 fL [facility] Monocytes (Bld) [#/Vol] 0.07 10*3/uL [facility] Monocytes/100 WBC (Bld) 2 % [facility] Neutrophils (Bld) [#/Vol] 2.85 10*3/uL [facility] Neutrophils/100 WBC (Bld) 81.2 % [facility] Nucleated RBC (Bld) [#/Vol] NINF [facility] Nucleated RBC/100 WBC (Bld) [Ratio] 0 % /100 WBC [facility] Platelet mean volume (Bld) [Entitic vol] 9.9 fL 9.0 - 12.7 fL [facility] Platelets (Bld) [#/Vol] 166 10*3/uL [facility] RBC (Bld) [#/Vol] 4.02 10*6/uL 3.90 - 5.2 0 m/uL [facility] WBC (Bld) [#/Vol] 3.51 10*3/uL Low [facility] Basophils (Bld) [#/Vol] 0.05 10*3/uL Normal <0.11 [facility] Comment on above: Order Comment: Speci men Type: BLOOD SPECIMENOrdering Facility: [facility] Address: [address] [place] [address] Performed By: #### 5 7021-8 ####[facility] [id number] [place] [address] [place] Basophils/100 WBC (Bld) 1.4 % Normal [facility] Comment on above: Order Comment: Speci men Type: BLOOD SPECIMENOrdering Facility: [facility] Address: [address] [place] [address] Performed By: #### 5 7021-8 ####[facility] [id number] [place] [address] [place] Differential cell count method Nom (Bld) Auto Normal [facility] Comment on above: Order Comment: Speci men Type: BLOOD SPECIMENOrdering Facility: [facility] Address: [address] [place] [address] Performed By: #### 5 7021-8 ####[facility] [id number] [place] [address] [place] Eosinophils (Bld) [#/Vol] 0.04 10*3/uL Normal <0.46 [facility] Comment on above: Order Comment: Speci men Type: BLOOD SPECIMENOrdering Facility: [facility] Address: [address] [place] [address] Performed By: #### 5 7021-8 ####[facility] [id number] [place] [address] [place] Eosinophils/100 WBC (Bld) 1.1 % Normal [facility] Comment on above: Order Comment: Speci men Type: BLOOD SPECIMENOrdering Facility: [facility] Address: [address] [place] [address] Performed By: #### 5 7021-8 ####[facility] [id number] [place] [address] [place] Erythrocyte distribution width (RBC) [Ratio] 15.6 % High 11.5-15.0 [facility] Comment on above: Order Comment: Speci men Type: BLOOD SPECIMENOrdering Facility: [facility] Address: [address] [place] [address] Performed By: #### 5 7021-8 ####[facility] [id number] [place] [address] [place] Hematocrit (Bld) [Volume fraction] 33.8 % Low 36.0-46.0 [facility] Comment on above: Order Comment: Speci men Type: BLOOD SPECIMENOrdering Facility: [facility] Address: [address] [place] [address] Performed By: #### 5 7021-8 ####[facility] ALYSSAOCONTONCLIA [id number] [place] [address] [place] Hemoglobin (Bld) [Mass/Vol] 10.4 g/dL Low 11.5-15.5 [facility] Comment on above: Order Comment: Speci men Type: BLOOD SPECIMENOrdering Facility: [facility] Address: [address] [place] [address] Performed By: #### 5 7021-8 ####[facility] SEBRINGNCLIA [id number] [place] [address] [place] Immature granulocytes (Bld) [#/Vol] 10*3/uL Normal <0.10 [facility] Comment on above: Order Comment: Speci men Type: BLOOD SPECIMENOrdering Facility: [facility] Address: [address] [place] [address] Performed By: #### 5 7021-8 ####[facility]ENTERL[facility] [id number] [place] [address] [place] Immature granulocytes/100 WBC (Bld) 0.6 % Normal [facility] Comment on above: Order Comment: Speci men Type: BLOOD SPECIMENOrdering Facility: [facility] Address: [address] [place] [address] Performed By: #### 5 7021-8 ####[facility]ENTERL[facility] [id number] [place] [address] [place] Lymphocytes (Bld) [#/Vol] 0.48 10*3/uL Low 1.00-4.00 [facility] Comment on above: Order Comment: Speci men Type: BLOOD SPECIMENOrdering Facility: [facility] [facility] Address: [address] [place] [address] Performed By: #### 5 7021-8 ####[facility] [id number] [place] [address] [place] Lymphocytes/100 WBC (Bld) 13.7 % Normal [facility] Comment on above: Order Comment: Speci men Type: BLOOD SPECIMENOrdering Facility: [facility] Address: [address] [place] [address] Performed By: #### 5 7021-8 ####[facility] [id number] [place] [address] [place] MCH (RBC) [Entitic mass] 25.9 pg Low 26.0-34.0 [facility] Comment on above: Order Comment: Speci men Type: BLOOD SPECIMENOrdering Facility: [facility] Address: [address] [place] [address] Performed By: #### 5 7021-8 ####[facility] [id number] [place] [address] [place] MCHC (RBC) [Mass/Vol] 30.8 g/dL Normal 30.5-36.0 Mikey [facility] Comment on above: Order Comment: Speci men Type: BLOOD SPECIMENOrdering Facility: [facility] Address: [address] [place] [address] Performed By: #### 5 7021-8 ####[facility] [id number] [place] [address] [place] MCV (RBC) [Entitic vol] 84.1 fL Normal 80.0-100.0 C [facility] Comment on above: Order Comment: Speci men Type: BLOOD SPECIMENOrdering Facility: [facility] Address: [address] [place] [address] Performed By: #### 5 7021-8 ####[facility] SEBRINGNCLI [id number] [place] [address] [place] Monocytes (Bld) [#/Vol] 0.07 10*3/uL Normal <0.87 [facility] Comment on above: Order Comment: Speci men Type: BLOOD SPECIMENOrdering Facility: [facility] Address: [address] [place] [address] Performed By: #### 5 7021-8 ####[facility] [id number] [place] [address] [place] Monocytes/100 WBC (Bld) 2.0 % Normal [facility] Comment on above: Order Comment: Speci men Type: BLOOD SPECIMENOrdering Facility: [facility] Address: [address] [place] [address] Performed By: #### 5 7021-8 ####[facility] [id number] [place] [address] [place] Neutrophils (Bld) [#/Vol] 2.85 10*3/uL Normal 1.45-7.50 [facility] Comment on above: Order Comment: Speci men Type: BLOOD SPECIMENOrdering Facility: [facility] Address: [address] [place] [address] Performed By: #### 5 7021-8 ####[facility] [id number] [place] [address] [place] Neutrophils/100 WBC (Bld) 81.2 % Normal [facility] Comment on above: Order Comment: Speci men Type: BLOOD SPECIMENOrdering Facility: [facility] Address: [address] [place] [address] Performed By: #### 5 7021-8 ####[facility] [id number] [place] [address] [place] Nucleated RBC (Bld) [#/Vol] 10*3/uL Normal <0.01 [facility] Comment on above: Order Comment: Speci men Type: BLOOD SPECIMENOrdering Facility: [facility] Address: [address] [place] [address] Performed By: #### 5 7021-8 ####[facility] MARSHALLIA [id number] [place] [address] [place] Nucleated RBC/100 WBC (Bld) [Ratio] 0.0 /100 WBC Normal [facility] Comment on above: Order Comment: Speci men Type: BLOOD SPECIMENOrdering Facility: [facility] Address: [address] [place] [address] Performed By: #### 5 7021-8 ####[facility] ALYSSAOCONTONCLIA [id number] [place] [address] [place] Platelet mean volume (Bld) [Entitic vol] 9.9 fL Normal 9.0-12.7 [facility] Comment on above: Order Comment: Speci men Type: BLOOD SPECIMENOrdering Facility: [facility] Address: [address] [place] [address] Performed By: #### 5 7021-8 ####[facility] SEBRINGNCLIA [id number] [place] [address] [place] Platelets (Bld) [#/Vol] 166 10*3/uL Normal 150-400 [facility] Comment on above: Order Comment: Speci men Type: BLOOD SPECIMENOrdering Facility: [facility] Address: [address] [place] [address] Performed By: #### 5 7021-8 ####[facility] ALYSSAOCONTONCLIA [id number] [place] [address] [place] RBC (Bld) [#/Vol] 4.02 10*6/uL Normal 3.90-5.20 [facility] Comment on above: Order Comment: Speci men Type: BLOOD SPECIMENOrdering Facility: [facility] Address: [address] [place] [address] Performed By: #### 5 7021-8 ####[facility] MILLTOWHAMLETA [id number] [place] [address] [place] WBC (Bld) [#/Vol] 3.51 10*3/uL Low 3.70-11.00 [facility] Comment on above: Order Comment: Speci men Type: BLOOD SPECIMENOrdering Facility: [facility] Address: [address] [place] [address] Performed By: #### 5 7021-8 ####[facility] HOSPITALWCTLI [id number] [place] [address] [place] CNPNon 10-12-2024 CNPN Normal [facility] CNPNon 10-08-2024 CNPN Normal [facility] CNOVon 10-06-2024 CNOV Normal [facility] CNPNon 10-06-2024 CNPN Normal [facility] CBC W Auto Differential pane l (Bld)on 10-05-2024 Basophils (Bld) [#/Vol] 0.08 10*3/uL [facility] Basophils/100 WBC (Bld) 1.2 % [facility] Differential cell count method Nom (Bld) Auto [facility] Eosinophils (Bld) [#/Vol] 0.18 10*3/uL [facility] Eosinophils/100 WBC (Bld) 2.6 % [facility] Erythrocyte distribution width (RBC) [Ratio] 16.5 % High 11.5 - 15.0 % [facility] Hematocrit (Bld) [Volume fraction] 36.2 % 36.0 - 46.0 % [facility] Hemoglobin (Bld) [Mass/Vol] 11.1 g/dL Low 11.5 - 15.5 g/dL [facility] Immature granulocytes (Bld) [#/Vol] 0.03 10*3/uL [facility] Immature granulocytes/100 WBC (Bld) 0.4 % [facility] Interpretation and review of laboratory results Abnormal [facility] Lymphocytes (Bld) [#/Vol] 1.27 10*3/uL [facility] Lymphocytes/100 WBC (Bld) 18.4 % [facility] MCH (RBC) [Entitic mass] 25.6 pg Low 26.0 - 34.0 pg [facility] MCHC (RBC) [Mass/Vol] 30.7 g/dL 30.5 - 36.0 g/dL [facility] MCV (RBC) [Entitic vol] 83.6 fL 80.0 - 100.0 fL [facility] Monocytes (Bld) [#/Vol] 0.5 10*3/uL [facility] Monocytes/100 WBC (Bld) 7.2 % C [facility] Neutrophils (Bld) [#/Vol] 4.84 10*3/uL [facility] Neutrophils/100 WBC (Bld) 70.2 % [facility] Nucleated RBC (Bld) [#/Vol] NINF [facility] Nucleated RBC/100 WBC (Bld) [Ratio] 0 % /100 WBC [facility] Platelet mean volume (Bld) [Entitic vol] 10.6 fL 9.0 - 12.7 fL [facility] Platelets (Bld) [#/Vol] 240 10*3/uL [facility] RBC (Bld) [#/Vol] 4.33 10*6/uL 3.90 - 5.2 0 m/uL [facility] WBC (Bld) [#/Vol] 6.9 10*3/uL [facility] Basophils (Bld) [#/Vol] 0.08 10*3/uL Normal <0.11 [facility] Comment on above: Order Comment: Speci men Type: BLOOD SPECIMENOrdering Facility: [facility] Address: [address] [place] [address] Performed By: #### 5 7021-8 ####[facility] [id number] [address] OF [facility] Basophils/100 WBC (Bld) 1.2 % Normal C [facility] Comment on above: Order Comment: Speci men Type: BLOOD SPECIMENOrdering Facility: [facility] Address: [address] [place], [place] [address] Performed By: #### 5 7021-8 ####[facility] [id number] [place] [address] [place] Differential cell count method Nom (Bld) Auto Normal [facility] Comment on above: Order Comment: Speci men Type: BLOOD SPECIMENOrdering Facility: [facility] Address: [address] [place] [address] Performed By: #### 5 7021-8 ####[facility] [id number] [place] [address] [place] Eosinophils (Bld) [#/Vol] 0.18 10*3/uL Normal <0.46 [facility] Comment on above: Order Comment: Speci men Type: BLOOD SPECIMENOrdering Facility: [facility] Address: [address] [place] [address] Performed By: #### 5 7021-8 ####[facility] [id number] [place] [address] [place] Eosinophils/100 WBC (Bld) 2.6 % Normal [facility] Comment on above: Order Comment: Speci men Type: BLOOD SPECIMENOrdering Facility: [facility] Address: [address] [place] [address] Performed By: #### 5 7021-8 ####[facility] SEBRINGNCLI [id number] [place] [address] [place] Erythrocyte distribution width (RBC) [Ratio] 16.5 % High 11.5-15.0 [facility] Comment on above: Order Comment: Speci men Type: BLOOD SPECIMENOrdering Facility: [facility] [facility] Address: [address] [place] [address] Performed By: #### 5 7021-8 ####[facility] [id number] [place] [address] [place] Hematocrit (Bld) [Volume fraction] 36.2 % Normal 36.0-46.0 [facility] Comment on above: Order Comment: Speci men Type: BLOOD SPECIMENOrdering Facility: [facility] [facility] Address: [address] [place] [address] Performed By: #### 5 7021-8 ####[facility] ALYSSAOCONTONCBLAKE [id number] [place] [address] [place] Hemoglobin (Bld) [Mass/Vol] 11.1 g/dL Low 11.5-15.5 [facility] Comment on above: Order Comment: Speci men Type: BLOOD SPECIMENOrdering Facility: [facility] Address: [address] [place] [address] Performed By: #### 5 7021-8 ####[facility] SEBRINGNCFroy [id number] [place] [address] [place] Immature granulocytes (Bld) [#/Vol] 0.03 10*3/uL Normal <0.10 [facility] Comment on above: Order Comment: Speci men Type: BLOOD SPECIMENOrdering Facility: [facility] Address: [address] [place] [address] Performed By: #### 5 7021-8 ####[facility] SEBRINGNCA [id number] [place] [address] [place] Immature granulocytes/100 WBC (Bld) 0.4 % Normal [facility] Comment on above: Order Comment: Speci men Type: BLOOD SPECIMENOrdering Facility: [facility] Address: [address] [place] [address] Performed By: #### 5 7021-8 ####[facility] SEBRINGNCLIA [id number] [place] [address] [place] Lymphocytes (Bld) [#/Vol] 1.27 10*3/uL Normal 1.00-4.00 [facility] Comment on above: Order Comment: Speci men Type: BLOOD SPECIMENOrdering Facility: [facility] Address: [address] [place] [address] Performed By: #### 5 7021-8 ####[facility] ALYSSAOCONTONCTIFFANIA [id number] [place] [address] [place] Lymphocytes/100 WBC (Bld) 18.4 % Normal [facility] Comment on above: Order Comment: Speci men Type: BLOOD SPECIMENOrdering Facility: [facility] Address: [address] [place] [address] Performed By: #### 5 7021-8 ####[facility] SEBRINGHAMLET [id number] [place] [address] [place] MCH (RBC) [Entitic mass] 25.6 pg Low 26.0-34.0 [facility] Comment on above: Order Comment: Speci men Type: BLOOD SPECIMENOrdering Facility: [facility] Address: [address] [place] [address] Performed By: #### 5 7021-8 ####[facility]BRINGZEVBLUE [facility]OUNT[facility] [id number] [place] [address] [place] MCHC (RBC) [Mass/Vol] 30.7 g/dL Normal 30.5-36.0 Mikey [facility] Comment on above: Order Comment: Speci men Type: BLOOD SPECIMENOrdering Facility: [facility] Address: [address] [place] [address] Performed By: #### 5 7021-8 ####[facility] SEBRINGNCLIFroy [id number] [place] [address] [place] MCV (RBC) [Entitic vol] 83.6 fL Normal 80.0-100.0 C [facility] Comment on above: Order Comment: Speci men Type: BLOOD SPECIMENOrdering Facility: [facility] Address: [address] [place] [address] Performed By: #### 5 7021-8 ####[facility] SEBRINGNCLI [id number] [place] [address] [place] Monocytes (Bld) [#/Vol] 0.50 10*3/uL Normal <0.87 [facility] Comment on above: Order Comment: Speci men Type: BLOOD SPECIMENOrdering Facility: [facility] Address: [address] [place] [address] Performed By: #### 5 7021-8 ####[facility] [id number] [place] [address] [place] Monocytes/100 WBC (Bld) 7.2 % Normal [facility] Comment on above: Order Comment: Speci men Type: BLOOD SPECIMENOrdering Facility: [facility] Address: [address] [place] [address] Performed By: #### 5 7021-8 ####[facility] [id number] [place] [address] [place] Neutrophils (Bld) [#/Vol] 4.84 10*3/uL Normal 1.45-7.50 [facility] Comment on above: Order Comment: Speci men Type: BLOOD SPECIMENOrdering Facility: [facility] Address: [address] [place] [address] Performed By: #### 5 7021-8 ####[facility]ENTERA [id number] [place] [address] [place] Neutrophils/100 WBC (Bld) 70.2 % Normal [facility] Comment on above: Order Comment: Speci men Type: BLOOD SPECIMENOrdering Facility: [facility] Address: [address] [place] [address] Performed By: #### 5 7021-8 ####[facility]A [id number] [place] [address] [place] Nucleated RBC (Bld) [#/Vol] 10*3/uL Normal <0.01 [facility] Comment on above: Order Comment: Speci men Type: BLOOD SPECIMENOrdering Facility: [facility] Address: [address] [place] [address] Performed By: #### 5 7021-8 ####[facility] ALYSSAJAZMYN [id number] [place] [address] [place] Nucleated RBC/100 WBC (Bld) [Ratio] 0.0 /100 WBC Normal [facility] Comment on above: Order Comment: Speci men Type: BLOOD SPECIMENOrdering Facility: [facility] [facility] Address: [address] [place] [address] Performed By: #### 5 7021-8 ####[facility] SEBRINGNCBLAKE [id number] [place] [address] [place] Platelet mean volume (Bld) [Entitic vol] 10.6 fL Normal 9.0-12.7 [facility] Comment on above: Order Comment: Speci men Type: BLOOD SPECIMENOrdering Facility: [facility] [facility] Address: [address] [place] [address] Performed By: #### 5 7021-8 ####[facility] SEBRINGZEVFroy [id number] [place] [address] [place] Platelets (Bld) [#/Vol] 240 10*3/uL Normal 150-400 [facility] Comment on above: Order Comment: Speci men Type: BLOOD SPECIMENOrdering Facility: [facility] [facility] Address: [address] [place] [address] Performed By: #### 5 7021-8 ####[facility] CENTERFroy [id number] [place] [address] [place] RBC (Bld) [#/Vol] 4.33 10*6/uL Normal 3.90-5.20 [facility] Comment on above: Order Comment: Speci men Type: BLOOD SPECIMENOrdering Facility: [facility] Address: [address] [place] [address] Performed By: #### 5 7021-8 ####[facility] HOSPITALWNCLIA [id number] [place] [address] [place] WBC (Bld) [#/Vol] 6.90 10*3/uL Normal 3.70-11.00 [facility] Comment on above: Order Comment: Speci men Type: BLOOD SPECIMENOrdering Facility: [facility] [facility] Address: [facility] [place] [address] Performed By: #### 5 7021-8 ####[facility] SEBRINGNCLIA [id number] [place] [address] [facility] [place] Comprehensive metabolic 2000 panelOrdered By: Cyndie Zhou on 10-05-2024 Albumin [Mass/Vol] 3.7 g/dL Low 3.9 - 4.9 g/dL [facility] ALP [Catalytic activity/Vol] 83 U/L 34 - 123 U/L [facility] ALT [Catalytic activity/Vol] 8 U/L 7 - 38 U/L [facility] Anion gap [Moles/Vol] 9 mmol/L 8 - 15 mmol/L [facility] AST [Catalytic activity/Vol] 16 U/L 13 - 35 U/L [facility] Bilirubin [Mass/Vol] 0.2 mg/dL 0.2 - 1 .3 mg/dL [facility] Calcium [Mass/Vol] 9.1 mg/dL 8.5 - 10. 2 mg/dL [facility] Chloride [Moles/Vol] 100 mmol/L 98 - 10 7 mmol/L [facility] CO2 [Moles/Vol] 25 mmol/L 22 - 30 mmol/L [facility] Creatinine [Mass/Vol] 0.67 mg/dL 0.58 - 0.96 mg/dL [facility] GFR/1.73 sq M.predicted among non-blacks MDRD (S/P/Bld) [Vol rate/Area] 97 mL/min/{1.73_m2} - PINF [facility] Comment on above: Estimated Glomerular Filtration Rate (eGFR) is calculated using the 2020 CKD-EPI creatinine equation. This equation utilizes serum creatinine, sex, and age as parameters. The creatinine assay has traceable calibration to isotope dilution-mass spectrometry. Refer to KDIGO guidelines for clinical interpretation. In patients with unstable renal function, e.g. those with acute kidney injury, the eGFR may not accurately reflect actual GFR. Glucose [Mass/Vol] 105 mg/dL High 74 - 99 mg/dL [facility] Comment on above: The [place] Diab[employer] s Association (ADA) provides guidance for cutoff values for fasting glucose and random glucose. The ADA defines fasting as no caloric intake for at least 8 hours. Fasting plasma glucose results between 100 to 125 mg/dL indicate increased risk for diabetes (prediabetes). Fasting plasma glucose results greater than or equal to 126 mg/dL meet the criteria for diagnosis of diabetes. In the absence of unequivocal hyperglycemia, results should be confirmed by repeat testing. In a patient with classic symptoms of hyperglycemia or hyperglycemic crisis, random plasma glucose results greater than or equal to 200 mg/dL meet the criteria for diagnosis of diabetes. Reference: Standards of Medical Care in Diabetes 2016, [place] [employer]. Diabetes Care. 2016.39(Suppl 1). Interpretation and review of laboratory results Abnormal [facility] Potassium [Moles/Vol] 4.1 mmol/L 3.7 - 5.1 mmol/L [facility] Protein [Mass/Vol] 6.7 g/dL 6.3 - 8.0 g/dL [facility] Sodium [Moles/Vol] 134 mmol/L Low 136 - 144 mmol/L [facility] Urea nitrogen [Mass/Vol] 11 mg/dL 7 - 21 mg/dL [facility] Comprehensive metabolic 2000 panelon 10-05-2024 Albumin [Mass/Vol] 3.7 g/dL Low 3.9-4.9 [facility] Comment on above: Order Comment: Mindy mcfarlane Type: BLOOD SPECIMENOrdering Facility: [facility] [place] [facility] Address: [address] [place], [place] [address] Performed By: #### 2 4323-8 ####[facility] RIGOBERTOMERCY [facility] [id number] [place] [address] [place] ALP [Catalytic activity/Vol] 83 U/L Normal 34-123 [facility] Comment on above: Order Comment: Mindy mcfarlane Type: BLOOD SPECIMENOrdering Facility: [facility] [place] [facility] Address: [address] [place], [place] [address] Performed By: #### 2 4323-8 ####[facility] RIGOBERTO MILLTOWNCLIA [id number] [place] [address] [place] ALT [Catalytic activity/Vol] 8 U/L Normal 7-38 [facility] Comment on above: Order Comment: Speci men Type: BLOOD SPECIMENOrdering Facility: [facility] [place] [facility] Address: [address] [place] [address] Performed By: #### 2 4323-8 ####[facility] MILLTOWNCLIA [id number] [place] [address] [place] Anion gap [Moles/Vol] 9 mmol/L Normal 8-15 [facility] Comment on above: Order Comment: Speci men Type: BLOOD SPECIMENOrdering Facility: [facility] [place] [facility] Address: [address] [place] [address] Performed By: #### 2 4323-8 ####[facility] SEBRINGNCLIA [id number] [place] [address] [place] AST [Catalytic activity/Vol] 16 U/L Normal 13-35 [facility] Comment on above: Order Comment: Speci men Type: BLOOD SPECIMENOrdering Facility: [facility] [place] [facility] Address: [address] [place] [address] Performed By: #### 2 4323-8 ####[facility] MILLTOWNCLIA [id number] [place] [address] [place] Bilirubin [Mass/Vol] 0.2 mg/dL Normal 0.2-1.3 [facility] Comment on above: Order Comment: Speci men Type: BLOOD SPECIMENOrdering Facility: [facility] [place] [facility] Address: [address] [place] [address] Performed By: #### 2 4323-8 ####[facility] HOSPITALWNCLIA [id number] [place] [address] [place] Calcium [Mass/Vol] 9.1 mg/dL Normal 8.5-10.2 [facility] Comment on above: Order Comment: Speci men Type: BLOOD SPECIMENOrdering Facility: [facility] [place] [facility] Address: [address] [place] [address] Performed By: #### 2 4323-8 ####[facility] RIGOBERTO MILLTOWNCLIA [id number] [place] [address] [place] Chloride [Moles/Vol] 100 mmol/L Normal 98-107 [facility] Comment on above: Order Comment: Speci men Type: BLOOD SPECIMENOrdering Facility: [facility] [place] [facility] Address: [address] [place] [address] Performed By: #### 2 4323-8 ####[facility] MILLWNCLIA [id number] [place] [address] [place] CO2 [Moles/Vol] 25 mmol/L Normal 22-30 [facility] Comment on above: Order Comment: Speci men Type: BLOOD SPECIMENOrdering Facility: [facility] [place] [facility] Address: [address] [place] [address] Performed By: #### 2 4323-8 ####[facility] MILLWNCLIA [id number] [place] [address] [place] Creatinine [Mass/Vol] 0.67 mg/dL Normal 0.58-0.96 [facility] Comment on above: Order Comment: Speci men Type: BLOOD SPECIMENOrdering Facility: [facility] [facility] Address: [address] [place] [address] Performed By: #### 2 4323-8 ####[facility] MILLWNCLIA [id number] [place] [address] [place] Creatinine and Glomerular filtration rate.predicted panel (S/P/Bld) 97 mL/min/1.73m??? Normal >=60 [facility] Comment on above: Order Comment: Mindy mcfarlane Type: BLOOD SPECIMENOrdering Facility: [facility] [facility] Address: [address] [id number] Result Comment: Sonia mated Glomerular Filtration Rate (eGFR) is calculated using the 2020 CKD-EPI creatinine equation. This equation utilizes serum creatinine, sex, and age as parameters. The creatinine assay has traceable calibration to isotope dilution-mass spectrometry. Refer to KDIGO guidelines for clinical interpretation. In patients with unstable renal function, e.g. those with acute kidney injury, the eGFR may not accurately reflect actual GFR. Performed By: #### 2 4323-8 ####[facility] [id number] [place] [address] [place] Glucose [Mass/Vol] 105 mg/dL High 74-99 [facility] Comment on above: Order Comment: Mindy mcfarlane Type: BLOOD SPECIMENOrdering Facility: [facility] Address: [address] [place] [address] Result Comment: The [place] Diabetes Association (ADA) provides guidance for cutoff values for fasting glucose and random glucose. The ADA defines fasting as no caloric intake for at least 8 hours. Fasting plasma glucose results between 100 to 125 mg/dL indicate increased risk for diabetes (prediabetes).Fasting plasma glucose results greater than or equal to 126 mg/dL meet the criteria for diagnosis of diabetes. In the absence of unequivocal hyperglycemia, results should be confirmed by repeat testing. In a patient with classic symptoms of hyperglycemia or hyperglycemic crisis, random plasma glucose results greater than or equal to 200 mg/dL meet the criteria for diagnosis of diabetes.Reference: Standards of Medical Care in Diabetes 2016, [place] [employer] Association. Diabetes Care. 2016.39(Suppl 1). Performed By: #### 2 4323-8 ####[facility] [id number] [place] [address] [place] Potassium [Moles/Vol] 4.1 mmol/L Normal 3.7-5.1 [facility] Comment on above: Order Comment: Mindy mcfarlane Type: BLOOD SPECIMENOrdering Facility: [facility] Address: [address] [id number] Performed By: #### 2 4323-8 ####[facility] MILLTOWNCLIA [id number] [place] [address] [place] Protein [Mass/Vol] 6.7 g/dL Normal 6.3-8.0 [facility] Comment on above: Order Comment: Speci men Type: BLOOD SPECIMENOrdering Facility: [facility] Address: [address] [place] [address] Performed By: #### 2 4323-8 ####[facility] [id number] [place] [address] [place] Sodium [Moles/Vol] 134 mmol/L Low 136-144 [facility] Comment on above: Order Comment: Speci men Type: BLOOD SPECIMENOrdering Facility: [facility] Address: [address] [place] [address] Performed By: #### 2 4323-8 ####[facility] [id number] [place] [address] [place] Urea nitrogen [Mass/Vol] 11 mg/dL Normal 7-21 [facility] Comment on above: Order Comment: Speci men Type: BLOOD SPECIMENOrdering Facility: [facility] Address: [address] [place] [address] Performed By: #### 2 4323-8 ####[facility] [id number] [place] [address] [place] CNOVon 09-30-2024 CNOV Normal [facility] Culture, Blood (WB)on 2024 CUB Blood cultures x2, f rom two different sites No growth in 5 days. Normal [facility] Comment on above: Performed By: #### L 500.4050, L100.0100, M200.1000, L503.6005 #### [facility] [address] [place], [place], [id number] HIGH RISK HUMAN PAPILLOMA ART (HPV), PCR FOR DETECTION AND GENOTYPINGon 09-30-2024 HPV 16 Ag Ql (Unsp spec) Not detected Normal Not detected [facility] Comment on above: Order Comment: Speci men Type: FLUID SPECIMENOrdering Facility: [facility] Address: [address] [place] [address] Performed By: #### H PVHRT ####[facility] LABIA [id number] [place] [address] [place] HPV 18 Ag Ql (Unsp spec) Not detected Normal Not detected [facility] Comment on above: Order Comment: Speci men Type: FLUID SPECIMENOrdering Facility: [facility] Address: [address] [place] [address] Performed By: #### H PVHRT ####[facility] SYSTEM[facility] [id number] [place] [address] [place] HPV 31+33+35+39+45+51+52+56 +58+59+66+68 DNA CORAL+probe Ql (Cvx) Not detected Normal Not detected [facility] Comment on above: Order Comment: Speci men Type: FLUID SPECIMENOrdering Facility: [facility] Address: [address] [place] [address] Result Comment: High Risk HPV Other Type includes HPV types 31, 33, 35, 39, 45, 51, 52, 56, 58, 59, 66 and 68. Performed By: #### H PVHRT ####[facility] LABIA [id number] [place] [address] [place] MARIA TERESA SCREENING W TOMOon 09-30 MARIA TERESA SCREENING W [place] Normal [facility] PAP TESTon 09-30-2024 ADEQUACY Satisfactory for interpretation. Normal [facility] Comment on above: Order Comment: Speci men Type: FLUID SPECIMENOrdering Facility: [facility] Address: [address] [place] [address] Performed By: #### L [id number] ####[facility]ORATORYCLIA [id number] [address] [address] [facility] LABCLIA [id number] [address] [place] CASE REPORT Normal [facility] Comment on above: Order Comment: Speci men Type: FLUID SPECIMENOrdering Facility: [facility] Address: [address] [place] [address] Result Comment: Gyne cologic Cytology Report Case: [id number] Provider: Juan José Cheema MD Collected: 09/30/2024 10:46 AMOrdering Location: OB/Gynecology Received: 09/30/2024 02:02 PMFirst Screen: Gmitro, Willie, CT, ASCPSpecimen: Pap Test, ThinPrep, Cervix Performed By: #### L [id number] ####[facility] LABORATORYCLIA [id number] [address] LABCLIA [id number] [place] [address] [place] CLINICAL HISTORY, CYTOLOGY, INJECTION MOULDING MACHINE OPERATOR Routine Exam Normal [facility] Comment on above: Order Comment: Speci men Type: FLUID SPECIMENOrdering Facility: [facility] Address: [address] [place] [address] Performed By: #### L [id number] ####[facility] LABORATORYCLIA [id number] [address] LABCLIA [id number] [place] [address] [place] CYTOLOGY PAP OTHER INTERPRETATION Atrophic specimen. Normal [facility] Comment on above: Order Comment: Speci men Type: FLUID SPECIMENOrdering Facility: [facility] Address: [address] [place] [address] Performed By: #### L [id number] ####[facility] LABORATORYCLIA [id number] [address] [place] [address] [facility] LABCLIA [id number] [address] [address] [place] FINAL PERFORMING LAB Normal [facility] Comment on above: Order Comment: Speci men Type: FLUID SPECIMENOrdering Facility: [facility] Address: [address] [place] [address] Result Comment: Tech nical component, stacker straightener screening performed at [facility], [address] [facility] [place] [address] CLIA# [id number] interpretation performed at [facility], [address] [place] [address] CLIA# [id number] Director: Joan Riley M.D. Performed By: #### L [id number] ####[facility] LABORATORYCLIA [id number] [address] LABCLIA [id number] [place] [address] [place] INTERPRETATION, CYTOLOGY, INJECTION MOULDING MACHINE OPERATOR Normal [facility] Comment on above: Order Comment: Speci men Type: FLUID SPECIMENOrdering Facility: [facility] Address: [address] [place] [address] Result Comment: Nega tive for intraepithelial lesion or malignancy. at 1545 EDT Performed By: #### L [id number] ####[facility] LABORATORYCLIA [id number] [address] LABCLIA [id number] [place] [id number] [place] LMP 01/22/2010 Normal [facility] Comment on above: Order Comment: Speci men Type: FLUID SPECIMENOrdering Facility: [facility] Address: [address] [place] [address] Performed By: #### L [id number] ####[facility] LABORATORYCLIA [id number] [address] [address] [facility] LABCLIA [id number] [address] [address] [place] PAP DISCLAIMER COMMENT The Pap Smear is a screening test for cervical cancer. False negative results occur with all screening tests, emphasizing the need for rescreening at recommended intervals, and clinical correlation. Normal [facility] Comment on above: Order Comment: Speci men Type: FLUID SPECIMENOrdering Facility: [facility] Address: [address] [place] [address] Performed By: #### L [id number] ####[facility] LABORATORYCLIA [id number] [address] LABCLIA [id number] [address] [id number] [place] PAP RELAY CHECKER COMMENT Normal [facility] Comment on above: Order Comment: Speci men Type: FLUID SPECIMENOrdering Facility: [facility] Address: [address] [place] [address] Performed By: #### L [id number] ####[facility] LABORATORYCLIA [id number] [address] LABCLIA [id number] [address] [place] [id number] [place] Shazia 09-29-2024 MARIMAR ROSADO ([id number]) 1960 F Date Time Provider Department 09/29/24 RAUL HENDRIX [facility] Jeremy 09-28-2024 VIBHA Telephone (CAITLYN ) -------- MARIMAR WANG ([id number]) 1960 F Date Time Provider Department 09/28/24 SARAH PEARSON During your visit today, we recorded the following information about you: Candace Alvarenga MA 09/28/2024 4:06 PM Signed Can we change this patient's appointment to a virtual per patient's request? She is scheduled for tomorrow 09-29-24 in [place] with Sarah. Sarah Pearson PA-C 09/29/2024 1:44 PM Signed Addressed during visit- starting chemo/radiation. Ok for virtuals Sarah Pearson PA-C Allergies As of Date: 09/28/2024 Noted Allergy Reaction CYMBALTA (DULOXETINE) 11/21/2023 5 - Intolerance Comments: Headaches NSAIDS (NON-STEROIDAL ANTI-INFLAM*04/16/2005 10 - Anaphylaxis Comments: Had anaphylactic reaction to Aleve VIBRAMYCIN (DOXYCYCLINE CALCIUM) 04/16/2005 10 - Anaphylaxis DILAUDID (HYDROMORPHONE (BULK)) 11/21/2023 11 - Vomiting MORPHINE 11/21/2023 11 - Vomiting HORSE/EQUINE CONTAINING PRODUCTS 11/28/2023 7 - Swelling VICODIN (HYDROCODONE-ACETAMINOPH E*11/21/2023 11 - Vomiting Comments: Can take if given antiemetic at same time Date Reviewed: 09/24/2024 Reviewed by: Fiona Rutherford MA - Fully Assessed Reason for Visit: appointment change [Other] Prescriptions as of 09/29/2024 - cholecalciferol, Vitamin D3, (VITAMIN D3) 1,250 mcg (50,000 unit) cap capsule Take 1 capsule by mouth every other week. - iv contrast (will be provided with radiology test) CT Chest W -Inject, intravenously, once for 1 dose.No IV access, insert saline lock prior to the beginning of sedation, infusion, injection of imaging exam. Discontinue saline lock post exam. If Pt. has a central line or IVAD, may access for administration according to line specific nursing protocol. Once exam is complete flush line and de-access according to line specific nursing protocol in the CT contrast administration guidelines link. - oxyCODONE-acetaminophen (PERCOCET) 5-325 mg tablet Take by mouth every 6 hours as needed. - leflunomide (ARAVA) 20 mg tablet Take 1 tablet by mouth once daily - Fluticasone Propionate (CUTIVATE) 0.05 % cream Apply to affected area two times a day. - meclizine (ANTIVERT) 25 mg tab Take 25 mg by mouth three times a day as needed (for dizziness). - atorvastatin (LIPITOR) 80 mg tablet Take 80 mg by mouth once daily. - vujhck-ajkfghic-owcvalw (CREON 36) 36,000-114,000- 180,000 unit delayed release capsule Take by mouth with meals and at bedtime. With snacks also - furosemide (LASIX) 20 mg tablet Take 20 mg by mouth once daily. - budesonide, enteric coated (ENTOCORT EC) 3 mg 24 hr capsule Take 2 capsules by mouth every afternoon. - pantoprazole DR (PROTONIX) 40 mg tablet Take 40 mg by mouth once daily. - dicyclomine (BENTYL) 20 mg tablet Take 10 mg by mouth three times a day. - VITAMIN B-12 1,000 mcg tab DISSOLVE 1 TABLET BY MOUTH ONCE DAILY - amLODIPine (NORVASC) 5 mg tablet Take 7.5 mg by mouth once daily. Takes 7.5 mg each day - promethazine (PHENERGAN) 25 mg tablet Take 1 tablet by mouth every 6 hours as needed for nausea/vomiting. - clopidogrel (PLAVIX) 75 mg tablet Take 75 mg by mouth once daily. - FLUoxetine (PROZAC) 20 mg capsule Take 3 capsules by mouth once daily. - abatacept/maltose (ORENCIA, WITH MALTOSE, INTRAVENOUS) Inject intravenously. - albuterol HFA (VENTOLIN HFA) 90 mcg/actuation inhaler Inhale 2 Puffs as instructed every 4 hours as needed for wheezing/shortness of breath. - buPROPion XL (WELLBUTRIN XL) 150 mg 24 hr tablet Take 1 tablet by mouth once daily. - mometasone (NASONEX) 50 mcg/actuation nasal spray Use 2 Sprays in the nose once daily. Rinse mouth after use. - acetaminophen (TYLENOL) 325 mg tablet Take by mouth every 6 hours as needed. - albuterol (PROVENTIL) 2.5 mg /3 mL (0.083 %) nebulizer solution Use 3 mL via nebulizer every 6 hours as needed for Wheezing/Shortness of Breath. - >Nebulizer For Home Nebulizer for home use. Diagnosis: Moderate persistent asthma with acute exacerbation and pneumonia Meds Comments as of 02/06/2017: Herlinda use pharmacy [facility] [place] [address] Problem List As Of Date 09/28/2024 Noted Resolved Fracture of triquetrum of left wrist, closed [S*02/14/2012 07/31/2019 Rheumatoid arthritis involving multiple sites (*06/12/2012 Fibromyalgia [M79.7] 03/11/2014 Depression [F32.A] 03/11/2014 Asthma [J45.909] 03/11/2014 Abdominal pain [R10.9] 03/11/2014 04/22/2014 Mycoplasma pneumonia [J15.7] 03/23/2014 06/03/2014 Carotid artery disease (HCC) [I77.9] 04/22/2014 07/31/2019 Hyperlipidemia with target LDL less than 130 [E*06/03/2014 Insomnia [G47.00] 09/03/2014 Hip pain [M25.559] 09/30/2014 Thoracic or lumbosacral neuritis or radiculitis*09/30/2014 Piriformis syndrome [G57.00] 09/30/2014 Intermittent palpitations [R00.2] 12/13/2014 PVC's (premature (more content not included)... Normal [facility] Absolute lymphocyte countOrd ered By: Pawle Cason on 09-24-2024 Lymphocytes Auto (Unsp spec) [#/Vol] 1.59 10*3/uL 0.83-4.51 [facility] Absolute neutrophil countOrd ered By: Pawel Cason on 09-24-2024 Neutrophils (Bld) [#/Vol] 7.0 10*3/uL 2.0-7.7 [facility] Automated lymphocyte count a s percentage of total leukocytesOrdered By: Pawel Cason on 09-24-2024 Lymphocytes/100 WBC Auto (Unsp spec) 15.7 % Low 19-41 [facility] BUN/creatinine ratioOrdered By: Pawel Cason on 09-24-2024 Urea nitrogen/Creatinine [Mass ratio] 15.0 mg/mg 10-20 [facility] Basophil percentageOrdered B y: Pawel Cason on 09-24-2024 Basophils/100 WBC (Bld) 1.1 % High 0-1 [facility] Bilirubin, totalOrdered By: Pawel Cason on 09-24-2024 Bilirubin [Mass/Vol] 0.18 mg/dL 0.00-1.30 [facility] Blood cultureOrdered By: Pawel Cason on 09-24-2024 Bacteria identified Cx Nom (Bld) No growth in 5 days. [facility] Bacteria identified Cx Nom (Bld) No growth in 5 days. [facility] CBC W/Diff, Automatedon 08-30 Absolute Lymph 1.59 X10 3/uL Normal 0.83-4.51 [facility] Comment on above: Performed By: #### L 500.4050, L100.0100, M200.1000, L503.6005 #### [facility] [address] [place], [address] Absolute Neut 7.0 X10 3/uL Normal 2.0-7.7 [facility] Comment on above: Performed By: #### L 500.4050, L100.0100, M200.1000, L503.6005 #### [facility] [address] [place], [address] Basophils/100 WBC (Bld) 1.1 % High 0-1 [facility] Comment on above: Performed By: #### L 500.4050, L100.0100, M200.1000, L503.6005 #### [facility] [address] [place], [address] Eosinophils/100 WBC (Bld) 1.9 % Normal 0-5 [facility] Comment on above: Performed By: #### L 500.4050, L100.0100, M200.1000, L503.6005 #### [facility] [address] [place], [address] Erythrocyte distribution width (RBC) [Ratio] 16.3 % High 11.6-14.6 [facility] Comment on above: Performed By: #### L 500.4050, L100.0100, M200.1000, L503.6005 #### [facility] [address] [place], [address] Hematocrit (Bld) [Volume fraction] 34.4 % Low 37-47 [facility] Comment on above: Performed By: #### L 500.4050, L100.0100, M200.1000, L503.6005 #### [facility] [address] [place], [address] Hemoglobin (Bld) [Mass/Vol] 10.7 g/dL Low 12.0-15.0 [facility] Comment on above: Performed By: #### L 500.4050, L100.0100, M200.1000, L503.6005 #### [facility] [address] [facility] [place], [address] IG% 1.000 High 0.0-0.9 [facility] Comment on above: Result Comment: IG% - Immature Granulocytes (promyelocytes, myelocytes and metamyelocytes) > 1% indicates that a LEFT SHIFT is Present. Performed By: #### L 500.4050, L100.0100, M200.1000, L503.6005 #### [facility] [address] [place], [address] Lymphocytes/100 WBC (Bld) 15.7 % Low 19-41 [facility] Comment on above: Performed By: #### L 500.4050, L100.0100, M200.1000, L503.6005 #### [facility] [address] [place], [address] MCH (RBC) [Entitic mass] 25.8 pg Low 27.0-32.0 [facility] Comment on above: Performed By: #### L 500.4050, L100.0100, M200.1000, L503.6005 #### [facility] [address] [place], [address] MCHC (RBC) [Mass/Vol] 31.1 g/dL Low 32-36 [facility] Comment on above: Performed By: #### L 500.4050, L100.0100, M200.1000, L503.6005 #### [facility] [address] [place], [address] MCV (RBC) [Entitic vol] 83.1 fL Normal 81-99 [facility] Comment on above: Performed By: #### L 500.4050, L100.0100, M200.1000, L503.6005 #### [facility] [address] [place], [address] Monocytes/100 WBC (Bld) 11.2 % High 0-10 [facility] Comment on above: Performed By: #### L 500.4050, L100.0100, M200.1000, L503.6005 #### [facility] [address] [place], [address] Neutrophils/100 WBC (Bld) 69.1 % Normal 47-70 [facility] Comment on above: Performed By: #### L 500.4050, L100.0100, M200.1000, L503.6005 #### [facility] [address] [place], [address] Nucleated RBC (Bld) [#/Vol] 0 10*3/uL Normal 0-5 [facility] Comment on above: Performed By: #### L 500.4050, L100.0100, M200.1000, L503.6005 #### [facility] [address] [place], [address] Platelet mean volume (Bld) [Entitic vol] 11.3 fL Normal 6.2-12.0 [facility] Comment on above: Performed By: #### L 500.4050, L100.0100, M200.1000, L503.6005 #### [facility] [address] [place], [address] Platelets (Bld) [#/Vol] 258 10*3/uL Normal 150-450 [facility] Comment on above: Performed By: #### L 500.4050, L100.0100, M200.1000, L503.6005 #### [facility] [address] [place], [address] RBC (Bld) [#/Vol] 4.14 10*6/uL Low 4.2-5.4 [facility] Comment on above: Performed By: #### L 500.4050, L100.0100, M200.1000, L503.6005 #### [facility] [address] [place], [address] RDW SD 49.1 fl High 35.1-43.9 [facility] Comment on above: Performed By: #### L 500.4050, L100.0100, M200.1000, L503.6005 #### [facility] [address] [place], [address] WBC (Bld) [#/Vol] 10.1 10*3/uL Normal 4.4-11.0 [facility] Comment on above: Performed By: #### L 500.4050, L100.0100, M200.1000, L503.6005 #### [facility] [address] [place], [address] CNOVon 09-24-2024 CNOV Normal [facility] CNPNon 09-24-2024 CNPN Normal [facility] Carbon dioxide measurementOr dered By: Pawel Cason on 09-24-2024 CO2 [Moles/Vol] 23.1 mmol/L 22.0-29.0 [facility] Chloride measurementOrdered By: Pawel Cason on 09-24-2024 Chloride [Moles/Vol] 99 mmol/L 96-108 [facility] Comprehensive Metabolic Prof ilon 09-24-2024 Albumin [Mass/Vol] 3.5 g/dL Normal 3.4-4.8 [facility] Comment on above: Performed By: #### L 500.4050, L100.0100, M200.1000, L503.6005 #### [facility] [address] [place], [address] Albumin/Globulin [Mass ratio] 1.0 {ratio} Normal 0.9-2.4 [facility] Comment on above: Performed By: #### L 500.4050, L100.0100, M200.1000, L503.6005 #### [facility] [address] [place], [address] ALK PHOS 97 U/L Normal 35-104 [facility] Comment on above: Performed By: #### L 500.4050, L100.0100, M200.1000, L503.6005 #### [facility] [address] [place], [address] ALT [Catalytic activity/Vol] 10 U/L Normal <=34 [facility] Comment on above: Performed By: #### L 500.4050, L100.0100, M200.1000, L503.6005 #### [facility] [address] [place], [address] Anion gap [Moles/Vol] 11 mmol/L Normal 5-15 [facility] Comment on above: Performed By: #### L 500.4050, L100.0100, M200.1000, L503.6005 #### [facility] [address] [place], [address] AST [Catalytic activity/Vol] 20 U/L Normal <=31 [facility] Comment on above: Performed By: #### L 500.4050, L100.0100, M200.1000, L503.6005 #### [facility] [address] [place], [address] Bilirubin [Mass/Vol] 0.18 mg/dL Normal 0.00-1.30 [facility] Comment on above: Performed By: #### L 500.4050, L100.0100, M200.1000, L503.6005 #### [facility] [address] [place], [address] BUN/CRE 15.0 RATIO Normal 10-20 [facility] Comment on above: Performed By: #### L 500.4050, L100.0100, M200.1000, L503.6005 #### [facility] [address] [place], [address] Calcium [Mass/Vol] 8.7 mg/dL Normal 7.6-11.0 [facility] Comment on above: Performed By: #### L 500.4050, L100.0100, M200.1000, L503.6005 #### [facility] [address] [place], [address] Chloride [Moles/Vol] 99 mmol/L Normal 96-108 [facility] Comment on above: Performed By: #### L 500.4050, L100.0100, M200.1000, L503.6005 #### [facility] [address] [place], [address] CO2 [Moles/Vol] 23.1 mmol/L Normal 22.0-29.0 [facility] Comment on above: Performed By: #### L 500.4050, L100.0100, M200.1000, L503.6005 #### [facility] [address] [place], [address] Creatinine [Mass/Vol] 0.69 mg/dL Low 0.70-1.20 [facility] Comment on above: Performed By: #### L 500.4050, L100.0100, M200.1000, L503.6005 #### [facility] [address] [place], [address] ECRCL 72.55 ml/min Normal [facility] Comment on above: Performed By: #### L 500.4050, L100.0100, M200.1000, L503.6005 #### [facility] [address] [place], [address] GFR/1.73 sq M.predicted among non-blacks MDRD (S/P/Bld) [Vol rate/Area] 96 mL/min/{1.73_m2} Normal >60 [facility] Comment on above: Result Comment: mL/m in/1.73m2 CKD-EPI Creatinine Equation (2020) Performed By: #### L 500.4050, L100.0100, M200.1000, L503.6005 #### [facility] [address] [place], [address] Globulin (S) [Mass/Vol] 3.3 g/dL Normal 2.2-4.2 [facility] Comment on above: Performed By: #### L 500.4050, L100.0100, M200.1000, L503.6005 #### [facility] [address] [place], [address] Glucose [Mass/Vol] 78 mg/dL Normal 70-99 [facility] Comment on above: Performed By: #### L 500.4050, L100.0100, M200.1000, L503.6005 #### [facility] [address] [place], [address] Potassium [Moles/Vol] 3.9 mmol/L Normal 3.3-5.1 [facility] Comment on above: Performed By: #### L 500.4050, L100.0100, M200.1000, L503.6005 #### [facility] [address] [place], [address] Sodium [Moles/Vol] 133 mmol/L Normal 133-145 [facility] Comment on above: Performed By: #### L 500.4050, L100.0100, M200.1000, L503.6005 #### [facility] [address] [place], [address] T PROT 6.8 g/dL Normal 5.9-8.4 [facility] Comment on above: Performed By: #### L 500.4050, L100.0100, M200.1000, L503.6005 #### [facility] [address] [place], [address] Urea nitrogen [Mass/Vol] 10 mg/dL Normal 4-19 [facility] Comment on above: Performed By: #### L 500.4050, L100.0100, M200.1000, L503.6005 #### [facility] [address] 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 Current Severity: Mild Maximum Severity: Severe Worsened by: Bowel movement, palpation Relieved by: Nothing Associated Symptoms Associated Symptoms: Patient thought she had a UTI Narrative Narrative: Patient went to urgent care. Urine was negative. Patient was recently seen by surgery. Patient underwent incision of rectal abscess and anoscopy with biopsy on September 02. Patient was noted to have a right-sided perirectal abscess. There is a suspected perianal mass. This was biopsied. Patient states the wound was draining. It is stopped draining. She had blood work and CAT scan done yesterday. White count yesterday was 8.1 with slight shift. Electrolyte panel was unremarkable. CT of the abdomen revealed a right perineal thickened wall that was 5.4 x 1.6 cm with fluid collection with adjacent fat stranding consistent with an abscess. Patient was informed of her lab results and CAT scan results. She denies fever or chills. She denies nausea or vomiting. She denies diarrhea. Prior similar symptoms: Yes Recent Illness/Hospitalization: 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 Mass of anus Perirectal abscess History of Crohn's disease Psoriatic arthritis Psoriasis Internal derangement of right knee Wears glasses Post-menopausal Depression Anxiety Ambulates with cane Injury of back Difficulty swallowing History of IBS History of hiatal hernia Former smoker Shortness of breath on exertion Chronic cough History of echocardiogram History of stress test Hypertension Cardiology follow-up encounter History of CHF (congestive heart failure) History of irregular heartbeat Acute pharyngitis, unspecified URI (upper respiratory infection) Contact with or suspected exposure to other viral communicable disease History of partial replacement of left hip joint using bipolar prosthesis Vitamin D deficiency HLD (hyperlipidemia) Insomnia Dry eye Regular astigmatism, bilateral PVCs (premature ventricular contractions) Coronary artery stenosis Chronic diastolic CHF (congestive heart failure) Iron malabsorption Osteoarthritis Lumbar spondylosis Osteoporosis Congenital cataract Intermittent palpitations Nausea TIA (transient ischemic attack) Acute maxillary sinusitis, unspecified Acute ethmoidal sinusitis, unspecified Acute frontal sinusitis, unspecified COPD exacerbation Foreign body in conjunctival sac, left eye, initial encounter Acute bacterial conjunctivitis Influenza A Acute bronchitis Back pain Limb weakness Asthma Anemia Arthritis Home Medications ???Medication ???Instructions ???Recorded ???Last Taken ???Type albuterol sulfate 90 mcg/actuation 2 puff inhalation Q4H PRN PRN Unknown History aerosol inhaler Shortness Of Breath clopidogrel 75 mg tablet 75 mg PO QHS BLOOD THINNER 5 09/01/24 History fluoxetine 20 mg capsule 60 mg PO QHS MENTAL HEALTH 6 09/01/24 History peg [id number] n 1 1 drp OP 4X/DAY DRY EYES 11/13/17 03/19/24 History %-0.2 %-0.2 % eye drops (Dry Eye Relief) leflunomide 20 mg tablet (Arava) 20 mg PO QHS RA 03/22/18 09/01/24 History amlodipine 5 mg tablet 7.5 mg PO QHS BP 08/15/22 09/01/24 History mometasone 50 mcg/actuation nasal 2 spray intranasal .QAM ALLERGIES 08/15/22 09/01/24 History spray ergocalciferol (vitamin D2) 1,250 1,250 mcg PO .EVERY OTHER WEEK 08/26/24 History mcg (50,000 unit) capsule (Vitamin SUPPELEMNT D2) mecobalamin (vitamin B12) 1,000 1,000 mcg sublingual QHS SUPPLEMEN T 12/06/22 09/01/24 History mcg disintegrating tablet,sublingual abatacept 50 mg/0.4 mL 50 mg subcut QMONTH RA 12/17/22 History subcutaneous syringe (Orencia) polyethylene glycol 3350 17 4 g PO PRN PRN Constipation Unknown History gram/dose oral powder (Miralax) [id number]-[id number] See Rx Instructions PO .COMPLEX 09/01/24 Rx 36,000-114,000-180,000 unit #300 caps capsule,delay rel (Creon) acetaminophen 500 mg tablet 1,000 mg PO Q6H PRN fever or pain 11/15/23 09/01/24 History atorvastatin 80 mg tablet 80 mg PO QHS 11/15/23 09/01/24 His tory hydrocortisone 2. (more content not included)... Normal [facility] Eosinophil percentageOrdered By: Pawel Cason on 09-24-2024 Eosinophils/100 WBC (Bld) 1.9 % 0-5 [facility] Erythrocyte distribution wid th ratioOrdered By: Pawel Cason on 09-24-2024 Erythrocyte distribution width (RBC) [Ratio] 16.3 % High 11.6-14.6 [facility] Erythrocyte distribution wid th standard deviationOrdered By: Pawel Cason on 09-24-2024 Erythrocyte distribution width (RBC) [Entitic vol] 49.1 fL High 35.1-43.9 [facility] Erythrocyte distribution width (RBC) [Ratio] 49.1 fl High 35.1-43.9 [facility] Estimation of creatinine mikey aranceOrdered By: Pawel Cason on 09-24-2024 Estimated Creatinine Clearance Calc 72.55 ml/min [facility] GFR/1.73 sq M.predicted brunilda g non-blacks MDRD (S/P/Bld) [Vol rate/Area]Ordered By: Pawel Cason on 09-24-2024 Estimated GFR (MDRD) Non-Af Amer 96 >60 [facility] Comment on above: mL/min/1.73m2 CKD-EP I Creatinine Equation (2020) Glomerular filtration rate ( GFR) estimation/1.73 sq m using serum, plasma, or whole bOrdered By: Pawel Cason on 09-24-2024 GFR/1.73 sq M.predicted among non-blacks MDRD (S/P/Bld) [Vol rate/Area] 96 mL/min/{1.73_m2} >60 [facility] Comment on above: mL/min/1.73m2 CKD-EP I Creatinine Equation (2020) Hematocrit Auto (Bld) [Volum e fraction]Ordered By: Pawel Cason 09-24-2024 Hematocrit (Bld) [Volume fraction] 34.4 % Low 37-47 [facility] Hemoglobin measurementOrdere d By: Pawel Cason on 09-24-2024 Hemoglobin (Bld) [Mass/Vol] 10.7 g/dL Low 12.0-15.0 [facility] Immature granulocytes/100 WB C Auto (Bld)Ordered By: Pawel Cason on 09-24-2024 Immature granulocytes/100 WBC (Bld) 1.000 % High 0.0-0.9 [facility] Comment on above: IG% - Immature Granu locytes (promyelocytes, myelocytes and metamyelocytes) > 1% indicates that a LEFT SHIFT is Present. Laboratory - Chemistry and C hemistry - challengeOrdered By: Pawel Cason on 09-24-2024 AST [Catalytic activity/Vol] 20 U/L <32 [facility] Lactic acid measurementOrder ed By: Pawel Cason on 09-24-2024 Lactate [Moles/Vol] mmol/L Normal 0.0-2.0 [facility] Comment on above: Order Comment: Y Performed By: #### L 500.4050, L100.0100, M200.1000, L503.6005 #### [facility] [address] [place], [address] Lymphocytes Auto (Unsp spec) [#/Vol]Ordered By: Pawel Cason on 09-24-2024 Lymphocytes (Bld) [#/Vol] 1.59 10*3/uL 0.83-4.51 [facility] Lymphocytes/100 WBC Auto (Un sp spec)Ordered By: Pawel Cason on 09-24-2024 Lymphocytes/100 WBC (Bld) 15.7 % Low 19-41 [facility] MCV (mean corpuscular volume ) determinationOrdered By: Pawel Cason on 09-24-2024 MCV (RBC) [Entitic vol] 83.1 fL 81-99 [facility] Mean corpuscular hemoglobin (MCH) determinationOrdered By: Pawel Cason on 09-24-2024 MCH (RBC) [Entitic mass] 25.8 pg Low 27.0-32.0 [facility] Mean corpuscular hemoglobin concentration (MCHC) determinationOrdered By: Pawel Cason on 09-24-2024 MCHC (RBC) [Mass/Vol] 31.1 g/dL Low 32-36 [facility] Mean platelet volume determi nationOrdered By: Pawel Cason on 09-24-2024 Platelet mean volume (Bld) [Entitic vol] 11.3 fL 6.2-12.0 [facility] Monocyte percentageOrdered B y: Pawel Cason on 09-24-2024 Monocytes/100 WBC (Bld) 11.2 % High 0-10 [facility] Neutrophil percentageOrdered By: Pawel Cason on 09-24-2024 Neutrophils/100 WBC (Bld) 69.1 % 47-70 [facility] Nucleated red blood cell per centageOrdered By: Pawel Cason on 09-24-2024 Nucleated RBC/100 WBC (Bld) [Ratio] 0 % 0-5 [facility] Pelvis WITH IV Contraston Pelvis WITH IV Contrast [facility] Imaging Services [address] [place], [place] [id number] Pelvis WITH IV Contrast MR#: [id number] Acct: [id number] Name: MARIMAR WANG Rep #: [id number] : 1960 F 64 From: Jaiden Mariee MD PCP: Julio 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 Right posterior perirectal soft tissue thickening measuring approximately 5.5 x 3.7 by 4.6 cm axial 63, sagittal 93 and coronal 78 is consistent with history of rectal cancer. Within the adjacent peroneal soft tissues a tiny low-density peripherally enhancing collection measuring around 6 mm is noted sagittal 95, coronal 68 and axial 65 consistent with tiny residual area of abscess. No soft tissue gas. Right labial and peroneal subcutaneous soft tissue stranding. No evidence of pelvic free fluid. The bladder, uterus and adnexa appear within limits considering spray artifact from hip replacement. Diverticulosis without diverticulitis. No bowel dilation visualized abdomen and pelvis. The appendix is not identified. No inguinal, pelvic sidewall, iliac lymphadenopathy identified. CT/Pelvis WITH IV Contrast IMPRESSION: Right posterior perirectal soft tissue thickening measuring approximately 5.5 x 3.7 by 4.6 cm axial 63, sagittal 93 and coronal 78 is consistent with history of rectal cancer. Within the adjacent peroneal soft tissues a tiny low-density peripherally enhancing collection measuring around 6 mm is noted sagittal 95, coronal 68 and axial 65 consistent with tiny residual area of abscess. No soft tissue gas. Right labial and peroneal subcutaneous soft tissue stranding. No evidence of pelvic free fluid. One or more dose reduction techniques were used (e.g., Automated exposure control, adjustment of the mA and/or kV according to patient size, use of iterative reconstruction technique). Reading Location: [id number] CC: SINAI Arriaga; Dr. Pawel Cason MD Bike Mechanic: Signed Normal [facility] Platelet countOrdered By: Akiko Cason on 09-24-2024 Platelets (Bld) [#/Vol] 258 10*3/uL 150-450 [facility] RBC Auto (Bld) [#/Vol]Ordere d By: Pawel Cason on 09-24-2024 RBC (Bld) [#/Vol] 4.14 10*6/uL Low 4.2-5.4 [facility] Serum creatinine measurement (mass/volume)Ordered By: Pawel Cason on 09-24-2024 Creatinine [Mass/Vol] 0.69 mg/dL Low 0.70-1.20 [facility] Serum globulin measurementOr dered By: Pawel Cason on 09-24-2024 Globulin (S) [Mass/Vol] 3.3 g/dL 2.2-4.2 [facility] Serum glucose measurement (m ass/volume)Ordered By: Pawel Cason on 09-24-2024 Glucose [Mass/Vol] 78 mg/dL 70-99 [facility] Serum or plasma alanine alarcon otransferase (ALT) measurementOrdered By: Pawel Cason on 09-24-2024 ALT [Catalytic activity/Vol] 10 U/L <35 [facility] Serum or plasma albumin alexis urement (mass/volume)Ordered By: Pawel Cason on 09-24-2024 Albumin [Mass/Vol] 3.5 g/dL 3.4-4.8 [facility] Serum or plasma albumin/glob ulin mass ratioOrdered By: Pawel Cason 09-24-2024 Albumin/Globulin [Mass ratio] 1.0 {ratio} 0.9-2.4 [facility] Serum or plasma alkaline [place] sphatase measurementOrdered By: Pawel Cason on 09-24-2024 ALP [Catalytic activity/Vol] 97 U/L 35-104 [facility] Serum or plasma anion gap de termination (moles/volume)Ordered By: Pawel Cason on 09-24-2024 Anion gap [Moles/Vol] 11 mmol/L 5-15 [facility] Serum or plasma calcium alexis urement (mass/volume)Ordered By: Pawel Cason on 09-24-2024 Calcium [Mass/Vol] 8.7 mg/dL 7.6-11.0 [facility] Serum or plasma potassium me asurementOrdered By: Pawelladonna Cason on 09-24-2024 Potassium [Moles/Vol] 3.9 mmol/L 3.3-5.1 [facility] Serum or plasma sodium measu rement (moles/volume)Ordered By: Pawel Cason on 09-24-2024 Sodium [Moles/Vol] 133 mmol/L 133-145 [facility] Serum or plasma urea nitroge n measurement (mass/volume)Ordered By: Pawel Cason on 09-24-2024 Urea nitrogen [Mass/Vol] 10 mg/dL 4-19 [facility] Total proteinOrdered By: Pawel Cason on 09-24-2024 Protein [Mass/Vol] 6.8 g/dL 5.9-8.4 [facility] UA DIP, URINE (POC)on 2024 BILIRUBIN UA (POCT) Negative Negative [facility] CLARITY UA (POCT) Clear [facility] COLOR UA (POCT) Yellow [facility] GLUCOSE UA (POCT) Negative Negative mg/dL [facility] Hemoglobin Ql (U) Negative Negative [facility] Interpretation and review of laboratory results Abnormal [facility] KETONE UA (POCT) Negative Negative mg/dL [facility] LEUKOCYTES UA (POCT) Small Abnormal Negative [facility] NITRITE UA (POCT) Negative Negative [facility] PH UA (POCT) 5.5 4.5 - 8.0 [facility] Protein Ql (U) Negative Negative mg/dL [facility] SPECIFIC GRAVITY UA (POCT) 1.01 1.005 - 1.030 [facility] UROBILINOGEN UA (POCT) 1 Mary Ellen l E.U./dL [facility] Location:[facility], [address] [place] [address], [place], [place], [id number] [place] [address] POINT OF CARE [facility] White blood cell (WBC) count Ordered By: Pawel Cason on 09-24-2024 WBC (Bld) [#/Vol] 10.1 10*3/uL 4.4-11.0 [facility] CT CHEST W IVCONon CT CHEST W IVCON Normal [facility] CT Chest W contrast [place]ub[place] IMPRESSION: 1. No CT evidence of metastatic disease to the chest. 2. Sequela of prior granulomatous exposure. 3. Mild pulmonary fibrosis. Bike Mechanic: PSCAlonso Transcribe Date/Time: Sep 23 2024 4:37P Dictated by : BIBI MEJIA MD This examination was interpreted and the report reviewed and electronically signed by: BIBI MEJIA MD on Sep 23 2024 4:44PM [facility] DIVISION OF RADIOLOGY * * *Final Report* * * DATE OF EXAM: Sep 23 2024 4:19PM [facility] 0539 - CT CHEST W IVCON / PROCEDURE REASON: Anal cancer (HCC) * * * * Physician Interpretation * * * * EXAMINATION: CHEST CT WITH CONTRAST CLINICAL HISTORY: Anal cancer Technique: Spiral CT acquisition of the chest from the thoracic inlet to the upper abdomen following IV contrast. MQ: CTCW_6 Contrast: 50 mL Omnipaque [address] Radiation dose: Integrated Dose-length product (DLP) for this visit = 405 mGy*cm CT Dose Reduction Employed: Automated exposure control(AEC) and iterative recon Comparison: CT chest dated 03/03/2020 RESULT: Limitations: None. Lines, tubes, and devices: None. Lung parenchyma and airways: Mild subpleural reticulation of the interstitial markings most compatible with mild fibrosis. Stable curvilinear scarring in the lingula. Mild dependent atelectatic changes.. No suspicious pulmonary nodule. Calcified lingular granuloma. The central airways are patent. Pleural space: No pleural effusion. No pleural thickening. Lower neck, lymph nodes, and mediastinum: The imaged thyroid gland is normal. Calcified prevascular lymph nodes without substantial interval change in size dating back to 2019 and most compatible with the sequela of prior granulomatous exposure. Heart, pericardium, and thoracic vessels: There are scattered atherosclerotic calcifications of the thoracic aorta and visualized great vessels. The thoracic aorta and main pulmonary artery are normal in caliber. The cardiac chambers are normal in size. Coronary coronary artery atherosclerotic calcifications are noted, although the study is not optimized for coronary assessment. No pericardial effusion or thickening. Bones and soft tissues: No destructive bone lesion. Surgical screw in the left scapula. Upper abdomen: Status post Vanessa fundoplication. No additional abnormality in the imaged upper abdomen. Localizer images: Left hip arthroplasty. DIVISION OF RADIOLOGY Provider, Gabrielle Freed - 09/23/2024 * * *Final Report* * * DATE OF EXAM: Sep 23 2024 4:19PM [facility] 0539 - CT CHEST W IVCON / PROCEDURE REASON: Anal cancer (HCC) * * * * Physician Interpretation * * * * EXAMINATION: CHEST CT WITH CONTRAST CLINICAL HISTORY: Anal cancer Technique: Spiral CT acquisition of the chest from the thoracic inlet to the upper abdomen following IV contrast. MQ: CTCW_6 Contrast: 50 mL Omnipaque [address] Radiation dose: Integrated Dose-length product (DLP) for this visit = 405 mGy*cm CT Dose Reduction Employed: Automated exposure control(AEC) and iterative recon Comparison: CT chest dated 03/03/2020 RESULT: Limitations: None. Lines, tubes, and devices: None. Lung parenchyma and airways: Mild subpleural reticulation of the interstitial markings most compatible with mild fibrosis. Stable curvilinear scarring in the lingula. Mild dependent atelectatic changes.. No suspicious pulmonary nodule. Calcified lingular granuloma. The central airways are patent. Pleural space: No pleural effusion. No pleural thickening. Lower neck, lymph nodes, and mediastinum: The imaged thyroid gland is normal. Calcified prevascular lymph nodes without substantial interval change in size dating back to 2019 and most compatible with the sequela of prior granulomatous exposure. Heart, pericardium, and thoracic vessels: There are scattered atherosclerotic calcifications of the thoracic aorta and visualized great vessels. The thoracic aorta and main pulmonary artery are normal in caliber. The cardiac chambers are normal in size. Coronary coronary artery atherosclerotic calcifications are noted, although the study is not optimized for coronary assessment. No pericardial effusion or thickening. Bones and soft tissues: No destructive bone lesion. Surgical screw in the left scapula. Upper abdomen: Status post Vanessa fundoplication. No additional abnormality in the imaged upper abdomen. Localizer images: Left hip arthroplasty. IMPRESSION IMPRESSION: 1. No CT evidence of metastatic disease to the chest. 2. Sequela of prior granulomatous exposure. 3. Mild pulmonary fibrosis. Bike Mechanic: SABINO Transcribe Date/Time: Sep 23 2024 4:37P Dictated by : BIBI MEJIA MD This examination was interpreted and the report reviewed and electronically signed by: BIBI MEJIA MD on Sep 23 2024 4:44PM [facility] Radiology Study observation (narrative) [facility] CT Chest W contrast IVOrdere d By: [facility] Provider on 09-23-2024 [facility] MRI PELVIS WO/W IVCONon 08-30 MRI PELVIS WO/W IVCON Normal [facility] CNPNon 09-22-2024 CNPN Normal [facility] CNPNon 09-18-2024 CNPN Normal [facility] CNOVon 09-17-2024 CNOV Normal [facility] CBC W Auto Differential pane l (Bld)on 09-16-2024 Basophils (Bld) [#/Vol] 0.12 10*3/uL High [facility] Basophils/100 WBC (Bld) 1.2 % [facility] Differential cell count method Nom (Bld) Auto [facility] Eosinophils (Bld) [#/Vol] 0.09 10*3/uL [facility] Eosinophils/100 WBC (Bld) 0.9 % [facility] Erythrocyte distribution width (RBC) [Ratio] 17.1 % High 11.5 - 15.0 % [facility] Hematocrit (Bld) [Volume fraction] 38.8 % 36.0 - 46.0 % [facility] Hemoglobin (Bld) [Mass/Vol] 12 g/dL 11.5 - 15.5 g/dL [facility] Immature granulocytes (Bld) [#/Vol] 0.03 10*3/uL [facility] Immature granulocytes/100 WBC (Bld) 0.3 % [facility] Interpretation and review of laboratory results Abnormal [facility] Lymphocytes (Bld) [#/Vol] 1.13 10*3/uL [facility] Lymphocytes/100 WBC (Bld) 11.5 % [facility] MCH (RBC) [Entitic mass] 25.9 pg Low 26.0 - 34.0 pg [facility] MCHC (RBC) [Mass/Vol] 30.9 g/dL 30.5 - 36.0 g/dL [facility] MCV (RBC) [Entitic vol] 83.8 fL 80.0 - 100.0 fL [facility] Monocytes (Bld) [#/Vol] 0.82 10*3/uL [facility] Monocytes/100 WBC (Bld) 8.3 % [facility] Neutrophils (Bld) [#/Vol] 7.64 10*3/uL High [facility] Neutrophils/100 WBC (Bld) 77.8 % [facility] Nucleated RBC (Bld) [#/Vol] NINF [facility] Nucleated RBC/100 WBC (Bld) [Ratio] 0 % /100 WBC [facility] Platelet mean volume (Bld) [Entitic vol] 10.9 fL 9.0 - 12.7 fL [facility] Platelets (Bld) [#/Vol] 275 10*3/uL [facility] RBC (Bld) [#/Vol] 4.63 10*6/uL 3.90 - 5.2 0 m/uL [facility] WBC (Bld) [#/Vol] 9.83 10*3/uL [facility] Basophils (Bld) [#/Vol] 0.12 10*3/uL High <0.11 [facility] Comment on above: Order Comment: Speci men Type: BLOOD SPECIMENOrdering Facility: [facility] Address: [address] [place] [address] Performed By: #### 5 7021-8 ####[facility] [id number] [place] [address] [place] Basophils/100 WBC (Bld) 1.2 % Normal C [facility] Comment on above: Order Comment: Speci men Type: BLOOD SPECIMENOrdering Facility: [facility] Address: [address] [place] [address] Performed By: #### 5 7021-8 ####[facility] [id number] [place] [address] [place] Differential cell count method Nom (Bld) Auto Normal [facility] Comment on above: Order Comment: Speci men Type: BLOOD SPECIMENOrdering Facility: [facility] Address: [address] [place] [address] Performed By: #### 5 7021-8 ####[facility] ALYSSAJAZMYN [id number] [place] [address] [place] Eosinophils (Bld) [#/Vol] 0.09 10*3/uL Normal <0.46 [facility] Comment on above: Order Comment: Speci men Type: BLOOD SPECIMENOrdering Facility: [facility] Address: [address] [place] [address] Performed By: #### 5 7021-8 ####[facility] SEBRINGZEVFroy [id number] [place] [address] [place] Eosinophils/100 WBC (Bld) 0.9 % Normal [facility] Comment on above: Order Comment: Speci men Type: BLOOD SPECIMENOrdering Facility: [facility] Address: [address] [place] [address] Performed By: #### 5 7021-8 ####[facility] SEBRINGNCA [id number] [place] [address] [place] Erythrocyte distribution width (RBC) [Ratio] 17.1 % High 11.5-15.0 [facility] Comment on above: Order Comment: Speci men Type: BLOOD SPECIMENOrdering Facility: [facility] Address: [address] [place] [address] Performed By: #### 5 7021-8 ####[facility] SEBRINGNCLIA [id number] [place] [address] [place] Hematocrit (Bld) [Volume fraction] 38.8 % Normal 36.0-46.0 [facility] Comment on above: Order Comment: Speci men Type: BLOOD SPECIMENOrdering Facility: [facility] Address: [address] [place] [address] Performed By: #### 5 7021-8 ####[facility] SEBRINGNCLIA [id number] [place] [address] [place] Hemoglobin (Bld) [Mass/Vol] 12.0 g/dL Normal 11.5-15.5 [facility] Comment on above: Order Comment: Speci men Type: BLOOD SPECIMENOrdering Facility: [facility] Address: [address] [place] [address] Performed By: #### 5 7021-8 ####[facility]ENTERLIA [id number] [place] [address] [place] Immature granulocytes (Bld) [#/Vol] 0.03 10*3/uL Normal <0.10 [facility] Comment on above: Order Comment: Speci men Type: BLOOD SPECIMENOrdering Facility: [facility] Address: [address] [place] [address] Performed By: #### 5 7021-8 ####[facility] [id number] [place] [address] [place] Immature granulocytes/100 WBC (Bld) 0.3 % Normal [facility] Comment on above: Order Comment: Speci men Type: BLOOD SPECIMENOrdering Facility: [facility] Address: [address] [place] [address] Performed By: #### 5 7021-8 ####[facility]ENTERLIA [id number] [place] [address] [place] Lymphocytes (Bld) [#/Vol] 1.13 10*3/uL Normal 1.00-4.00 [facility] Comment on above: Order Comment: Speci men Type: BLOOD SPECIMENOrdering Facility: [facility] Address: [address] [place] [address] Performed By: #### 5 7021-8 ####[facility] SEBRINGNCLIA [id number] [place] [address] [place] Lymphocytes/100 WBC (Bld) 11.5 % Normal [facility] Comment on above: Order Comment: Speci men Type: BLOOD SPECIMENOrdering Facility: [facility] Address: [address] [place] [address] Performed By: #### 5 7021-8 ####[facility] [id number] [place] [address] [place] MCH (RBC) [Entitic mass] 25.9 pg Low 26.0-34.0 [facility] Comment on above: Order Comment: Speci men Type: BLOOD SPECIMENOrdering Facility: [facility] Address: [address] [place] [address] Performed By: #### 5 7021-8 ####[facility] [id number] [place] [address] [place] MCHC (RBC) [Mass/Vol] 30.9 g/dL Normal 30.5-36.0 [facility] Comment on above: Order Comment: Speci men Type: BLOOD SPECIMENOrdering Facility: [facility] Address: [address] [place] [address] Performed By: #### 5 7021-8 ####[facility] SEBRINGNCLIA [id number] [place] [address] [place] MCV (RBC) [Entitic vol] 83.8 fL Normal 80.0-100.0 C [facility] Comment on above: Order Comment: Speci men Type: BLOOD SPECIMENOrdering Facility: [facility] Address: [address] [place] [address] Performed By: #### 5 7021-8 ####[facility] [id number] [place] [address] [place] Monocytes (Bld) [#/Vol] 0.82 10*3/uL Normal <0.87 [facility] Comment on above: Order Comment: Speci men Type: BLOOD SPECIMENOrdering Facility: [facility] Address: [address] [place] [address] Performed By: #### 5 7021-8 ####[facility] SEBRINGZEVLIA [id number] [place] [address] [place] Monocytes/100 WBC (Bld) 8.3 % Normal [facility] Comment on above: Order Comment: Speci men Type: BLOOD SPECIMENOrdering Facility: [facility] Address: [address] [place] [address] Performed By: #### 5 7021-8 ####[facility] [id number] [place] [address] [place] Neutrophils (Bld) [#/Vol] 7.64 10*3/uL High 1.45-7.50 [facility] Comment on above: Order Comment: Speci men Type: BLOOD SPECIMENOrdering Facility: [facility] Address: [address] [place] [address] Performed By: #### 5 7021-8 ####[facility]A [id number] [place] [address] [place] Neutrophils/100 WBC (Bld) 77.8 % Normal [facility] Comment on above: Order Comment: Speci men Type: BLOOD SPECIMENOrdering Facility: [facility] Address: [address] [place] [address] Performed By: #### 5 7021-8 ####[facility] [id number] [place] [address] [place] Nucleated RBC (Bld) [#/Vol] 10*3/uL Normal <0.01 [facility] Comment on above: Order Comment: Speci men Type: BLOOD SPECIMENOrdering Facility: [facility] Address: [address] [place] [address] Performed By: #### 5 7021-8 ####[facility] ALYSSAOCONTOZEVLIA [id number] [place] [address] [place] Nucleated RBC/100 WBC (Bld) [Ratio] 0.0 /100 WBC Normal [facility] Comment on above: Order Comment: Speci men Type: BLOOD SPECIMENOrdering Facility: [facility] Address: [address] [place] [address] Performed By: #### 5 7021-8 ####[facility] SEBRINGHAMLETA [id number] [place] [address] [place] Platelet mean volume (Bld) [Entitic vol] 10.9 fL Normal 9.0-12.7 [facility] Comment on above: Order Comment: Speci men Type: BLOOD SPECIMENOrdering Facility: [facility] Address: [address] [place] [address] Performed By: #### 5 7021-8 ####[facility]A [id number] [place] [address] [place] Platelets (Bld) [#/Vol] 275 10*3/uL Normal 150-400 [facility] Comment on above: Order Comment: Speci men Type: BLOOD SPECIMENOrdering Facility: [facility] Address: [address] [place] [address] Performed By: #### 5 7021-8 ####[facility]ENTERLIA [id number] [place] [address] [place] RBC (Bld) [#/Vol] 4.63 10*6/uL Normal 3.90-5.20 [facility] Comment on above: Order Comment: Speci men Type: BLOOD SPECIMENOrdering Facility: [facility] Address: [address] [place] [address] Performed By: #### 5 7021-8 ####[facility]ENTERLIA [id number] [place] [id number] [place] WBC (Bld) [#/Vol] 9.83 10*3/uL Normal 3.70-11.00 [facility] Comment on above: Order Comment: Speci men Type: BLOOD SPECIMENOrdering Facility: [facility] Address: [address] [place] [address] Performed By: #### 5 7021-8 ####[facility] RIGOBERTO MILLTONCLIA [id number] [place] [address] [place] CNPNon 09-16-2024 CNPN Normal [facility] Comprehensive metabolic 2000 panelOrdered By: Frannie Puente on 09-16-2024 Albumin [Mass/Vol] 3.9 g/dL 3.9 - 4.9 g/dL [facility] ALP [Catalytic activity/Vol] 104 U/L 34 - 123 U/L [facility] ALT [Catalytic activity/Vol] 10 U/L 7 - 38 U/L [facility] Anion gap [Moles/Vol] 10 mmol/L 8 - 15 mmol/L [facility] AST [Catalytic activity/Vol] 19 U/L 13 - 35 U/L [facility] Bilirubin [Mass/Vol] 0.3 mg/dL 0.2 - 1 .3 mg/dL [facility] Calcium [Mass/Vol] 9.4 mg/dL 8.5 - 10. 2 mg/dL [facility] Chloride [Moles/Vol] 102 mmol/L 98 - 10 7 mmol/L [facility] CO2 [Moles/Vol] 22 mmol/L 22 - 30 mmol/L [facility] Creatinine [Mass/Vol] 0.7 mg/dL 0.58 - 0.96 mg/dL [facility] GFR/1.73 sq M.predicted among non-blacks MDRD (S/P/Bld) [Vol rate/Area] 96 mL/min/{1.73_m2} - PINF [facility] Comment on above: Estimated Glomerular Filtration Rate (eGFR) is calculated using the 2020 CKD-EPI creatinine equation. This equation utilizes serum creatinine, sex, and age as parameters. The creatinine assay has traceable calibration to isotope dilution-mass spectrometry. Refer to KDIGO guidelines for clinical interpretation. In patients with unstable renal function, e.g. those with acute kidney injury, the eGFR may not accurately reflect actual GFR. Glucose [Mass/Vol] 94 mg/dL 74 - 99 mg/dL [facility] Comment on above: The [place] Diab[employer] s Association (ADA) provides guidance for cutoff values for fasting glucose and random glucose. The ADA defines fasting as no caloric intake for at least 8 hours. Fasting plasma glucose results between 100 to 125 mg/dL indicate increased risk for diabetes (prediabetes). Fasting plasma glucose results greater than or equal to 126 mg/dL meet the criteria for diagnosis of diabetes. In the absence of unequivocal hyperglycemia, results should be confirmed by repeat testing. In a patient with classic symptoms of hyperglycemia or hyperglycemic crisis, random plasma glucose results greater than or equal to 200 mg/dL meet the criteria for diagnosis of diabetes. Reference: Standards of Medical Care in Diabetes 2016, [place] [employer]. Diabetes Care. 2016.39(Suppl 1). Interpretation and review of laboratory results Abnormal [facility] Potassium [Moles/Vol] 3.8 mmol/L 3.7 - 5.1 mmol/L [facility] Protein [Mass/Vol] 7.4 g/dL 6.3 - 8.0 g/dL [facility] Sodium [Moles/Vol] 134 mmol/L Low 136 - 144 mmol/L [facility] Urea nitrogen [Mass/Vol] 14 mg/dL 7 - 21 mg/dL [facility] Comprehensive metabolic 2000 panelon 09-16-2024 Albumin [Mass/Vol] 3.9 g/dL Normal 3.9-4.9 [facility] Comment on above: Order Comment: Speci men Type: BLOOD SPECIMENOrdering Facility: [facility] Address: [address] [place] [address] Performed By: #### 2 4323-8 ####[facility] [id number] [place] [address] [place] ALP [Catalytic activity/Vol] 104 U/L Normal 34-123 [facility] Comment on above: Order Comment: Speci men Type: BLOOD SPECIMENOrdering Facility: [facility] Address: [address] [place] [address] Performed By: #### 2 4323-8 ####[facility] RIGOBERTO MILLTOWNCLIA [id number] [place] [address] [place] ALT [Catalytic activity/Vol] 10 U/L Normal 7-38 [facility] Comment on above: Order Comment: Speci men Type: BLOOD SPECIMENOrdering Facility: [facility] Address: [address] [place] [address] Performed By: #### 2 4323-8 ####[facility] MILLTOWNCLIA [id number] [place] [address] [place] Anion gap [Moles/Vol] 10 mmol/L Normal 8-15 [facility] Comment on above: Order Comment: Speci men Type: BLOOD SPECIMENOrdering Facility: [facility] Address: [address] [place] [address] Performed By: #### 2 4323-8 ####[facility] MILLTOWNCLIA [id number] [place] [address] [place] AST [Catalytic activity/Vol] 19 U/L Normal 13-35 [facility] Comment on above: Order Comment: Speci men Type: BLOOD SPECIMENOrdering Facility: [facility] Address: [address] [place] [address] Performed By: #### 2 4323-8 ####[facility] MILLTOWNCLIA [id number] [place] [address] [place] Bilirubin [Mass/Vol] 0.3 mg/dL Normal 0.2-1.3 [facility] Comment on above: Order Comment: Speci men Type: BLOOD SPECIMENOrdering Facility: [facility] Address: [address] [place] [address] Performed By: #### 2 4323-8 ####[facility] MILLTOWNCLIA [id number] [place] [address] [place] Calcium [Mass/Vol] 9.4 mg/dL Normal 8.5-10.2 [facility] Comment on above: Order Comment: Speci men Type: BLOOD SPECIMENOrdering Facility: [facility] Address: [address] [place] [address] Performed By: #### 2 4323-8 ####[facility] SEBRINGNCLI [id number] [place] [address] [place] Chloride [Moles/Vol] 102 mmol/L Normal 98-107 [facility] Comment on above: Order Comment: Speci men Type: BLOOD SPECIMENOrdering Facility: [facility] Address: [address] [place] [address] Performed By: #### 2 4323-8 ####[facility] SEBRINGNCLI [id number] [place] [address] [place] CO2 [Moles/Vol] 22 mmol/L Normal 22-30 [facility] Comment on above: Order Comment: Speci men Type: BLOOD SPECIMENOrdering Facility: [facility] Address: [address] [place] [address] Performed By: #### 2 4323-8 ####[facility]ENTERL[facility] [id number] [place] [address] [place] Creatinine [Mass/Vol] 0.70 mg/dL Normal 0.58-0.96 [facility] Comment on above: Order Comment: Speci men Type: BLOOD SPECIMENOrdering Facility: [facility] Address: [address] [place] [address] Performed By: #### 2 4323-8 ####[facility]BRINGNCLIA [id number] [place] [address] [place] Creatinine and Glomerular filtration rate.predicted panel (S/P/Bld) 96 mL/min/1.73m??? Normal >=60 [facility] Comment on above: Order Comment: Speci men Type: BLOOD SPECIMENOrdering Facility: [facility] Address: [address] [id number] Result Comment: Sonia mated Glomerular Filtration Rate (eGFR) is calculated using the 2020 CKD-EPI creatinine equation. This equation utilizes serum creatinine, sex, and age as parameters. The creatinine assay has traceable calibration to isotope dilution-mass spectrometry. Refer to KDIGO guidelines for clinical interpretation. In patients with unstable renal function, e.g. those with acute kidney injury, the eGFR may not accurately reflect actual GFR. Performed By: #### 2 4323-8 ####[facility] [id number] [place] [address] [place] Glucose [Mass/Vol] 94 mg/dL Normal 74-99 [facility] Comment on above: Order Comment: Speci men Type: BLOOD SPECIMENOrdering Facility: [facility] Address: [address] [place] [address] Result Comment: The [place] Diabetes Association (ADA) provides guidance for cutoff values for fasting glucose and random glucose. The ADA defines fasting as no caloric intake for at least 8 hours. Fasting plasma glucose results between 100 to 125 mg/dL indicate increased risk for diabetes (prediabetes).Fasting plasma glucose results greater than or equal to 126 mg/dL meet the criteria for diagnosis of diabetes. In the absence of unequivocal hyperglycemia, results should be confirmed by repeat testing. In a patient with classic symptoms of hyperglycemia or hyperglycemic crisis, random plasma glucose results greater than or equal to 200 mg/dL meet the criteria for diagnosis of diabetes.Reference: Standards of Medical Care in Diabetes 2016, [place] [employer]. Diabetes Care. 2016.39(Suppl 1). Performed By: #### 2 4323-8 ####[facility] [id number] [place] [address] [place] Potassium [Moles/Vol] 3.8 mmol/L Normal 3.7-5.1 [facility] Comment on above: Order Comment: Speci men Type: BLOOD SPECIMENOrdering Facility: [facility] Address: [address] [id number] Performed By: #### 2 4323-8 ####[facility] MILLTOWNCLIA [id number] [place] [address] [place] Protein [Mass/Vol] 7.4 g/dL Normal 6.3-8.0 [facility] Comment on above: Order Comment: Speci men Type: BLOOD SPECIMENOrdering Facility: [facility] Address: [address] [place] [address] Performed By: #### 2 4323-8 ####[facility] SEBRINGNCLIA [id number] [place] [address] [place] Sodium [Moles/Vol] 134 mmol/L Low 136-144 [facility] Comment on above: Order Comment: Speci men Type: BLOOD SPECIMENOrdering Facility: [facility] Address: [address] [place] [address] Performed By: #### 2 4323-8 ####[facility]ENTERLIA [id number] [place] [address] [place] Urea nitrogen [Mass/Vol] 14 mg/dL Normal 7-21 [facility] Comment on above: Order Comment: Speci men Type: BLOOD SPECIMENOrdering Facility: [facility] Address: [address] [place] [address] Performed By: #### 2 4323-8 ####[facility]INGNCLIA [id number] [place] [address] [place] DPYD/UGT1A1 GENOTYPING PANEL on 09-16-2024 DPYD/UGT1A1 GENOTYPING PANEL RESULT Normal [facility] Comment on above: Order Comment: Speci men Type: BLOOD SPECIMENOrdering Facility: [facility] Address: [address] [place] [address] Result Comment: [facility] [employer] ([employer]) DPYD and UGT1A1 GenotypingLaboratory Accession Number: [id number] Genotype: *1/*1DPYD Activity Score: 2DPYD Predicted Phenotype: DPYD Normal MfkdoarlzohXIR2E3 Genotype: *1/*3RYH1Y7 Predicted Phenotype: UGT1A1 Normal MetabolizerInterpretation:Two normal function alleles were observed in the DPYD gene (seevariant details below) resulting in an activity score of 2. Thisactivity score is associated with a DPYD normal metabolizer phenotype.DPYD normal metabolizers are not expected to require (based onpharmacogenomic results alone) selective adjustment of the dose ofmedications metabolized by DPD. Please consult a clinical pharmacistfor more information regarding drug therapy. Questions regardingmolecular testing details should be directed .Two normal function UGT1A1 alleles or one normal function alleleand one increased function UGT1A1 allele or two increased [id number] alleles were observed in this sample (see variant detailsbelow). This is associated with a UGT1A1 normal metabolizer phenotype.UGT1A1 normal metabolizers are not expected to require (based onpharmacogenomic results alone) selective adjustment of the dose ofmedications metabolized by UGT. Please consult a clinical pharmacistfor more information regarding drug therapy. Questions regardingmolecular testing details should be directed .The DPYD gene encodes dihydropyrimidine dehydrogenase (DPD). Thisenzyme is involved in the metabolism of fluoropyrimidines. The QZI1L7qcja encodes UDP-glucuronosyltransferase (UGT). UGT is involved in themetabolism of certain medications including ones used in oncology. Forclinical correlation, drug-specific guidelines are available toprovide phenotype assignment and therapeutic recommendations based onphenotype. Patients who carry genetic variants associated with alteredmetabolism may be at risk for an adverse or poor response to drugsthat are predominantly metabolized by the associated enzyme (DPD orUGT). For patients with altered DPD and/or UGT activity, alternativepharmacological agents or dosing adjustments may be needed formedications metabolized by this enzyme to avoid an unexpected oradverse response.Please note that this DPYD genotyping test includes variants that maynot have been assayed in a previous test performed elsewhere. If thereis discordance of phenotype results between laboratories, it is likelya function of the different variants assayed in each test. Themethodology section of the report (see below) lists the variantsinterrogated by this test.DPYD Additional Information:In addition to increased risk of 5-fluorouracil toxicity, variants inthe DPYD gene may be associated with DPD deficiency, an autosomalrecessive inborn error of metabolism (OMIM: 460348). DPD deficiencyexhibits a wide range of phenotypic variability, from no symptoms to colby rare severe neurological disorder with onset in infancy orchildhood (prevalence unknown). For the vast majority of affectedindividuals, the first and only symptom is sensitivity to5-fluorouracil and capecitabine. It is possible that individuals withDPD deficiency may be identified by the presence of two no-functionDPYD variants (activity score = 0). However, this test is designed asa pharmacogenomic test and is not intended as a diagnostic or carriertest for DPD deficiency. A formal genetics consultation is recommendedfor those with concerns regarding DPD deficiency.Limitations:DNA studies do not provide a definitive genetic or pharmacogenomicrisk in all individuals. This test is designed to detect a specificset of variants (see list below) in the DPYD gene (OMIM 757123) xprXTY2J3 gene (OMIM 831535). This test does not detect all sequencevariants in either gene. Uncommon variants or single nucleotidepolymorphisms may affect binding of primers and probes and may resultin false negative, false positive, or indeterminate results. Theabsence of abnormal variants as analyzed in this test is interpretedas the presence of *1/*1 (wild type/normal) genotype. The phenotypeprovided in the interpretation may be impacted by undetected geneticand/or non-genetic factors such as drug-drug interactions.Methodology:Purified genomic DNA was subjected to polymerase chain reaction-basedamplification. The DPYD (NM_000110.3) and UGT1A1 (NM_000463.3) geneswere interrogated for known, clinically relevant variants. [employer] products were analyzed using matrix-assisted laserdesorption/ionization massspectrometry, and specific genotypesassigned were then translated to the appropriate star (*) allele (DPYDand UGT1A1) and activity score (DPYD), see lists below. The referencegenome used is GRCh38/hg38.UGT1A1 star alleles: *1, *6, *27, *28, *36, *37, *80, *80+*28,*80+*36, and *80+*37. These alleles are detected using the presence orabsence of the following variants, RefSNP ID: [id number], [id number] (TA repeats), and [id number].DPYD star alleles and targeted variants:RefSNP ID Legacy Total Allele Highest Allele Name Frequency Frequency General Population (Population)No variantdetected *[id number] *2A 0.6% 2.4% (Eur F)[id number] *8 0.01% 0.03% (S )[id number] *10 n/[id number] *12 0.0008% 0.003% (S )[id number] *13 0.03% 0.06% (Eur F)[id number] Y186C 0.2% 2.15% ()[id number] c.2846A>T 0.3% 0.5% (Eur NF)[id number] HapB3 1.4% 2.1 % (Eur NF)[id number] HapB3(c.1236G>A) 1.4% 2.1% (Eur NF)Population frequencies are from gnomAD and may be different inspecific ethnic groups. The allele frequency shown is the total allelefrequency in all populations. The highest allele frequency for asingle population is also noted (Eur F = Citizen Of [place], Eur NF = non-Citizen Of [place], S = South ). Note: [id number] (HapB3)and [id number] (c.1236G>A) are in linkage disequilibrium thus aretypically seen together.References:1) Clinical Pharmacogenetics Implementation Consortium (CPIC):www.CPICpgx.org2) Pharmacogene Variation Consortium (PharmVar): www.PharmVar.org3) Genome Aggregation Database V2.1.1 (gnomAD), accessed July2021, https://gnomad.broadinstitute.org4) Yumiko M, Adrián EM, Kings JM, et al. PharmacogenomicsKnowledge for Personalized Medicine Clinical Pharmacology andTherapeutics (2012) 92(4): 414-417.5) Sky U, Jerilyn SEGURA, Rosita SM, et al. Clinical PharmacogeneticsImplementation Consortium (CPIC) Guideline for DihydropyrimidineDehydrogenase Genotype and Fluoropyrimidine Dosin Update. ClinPharmacol Ther. 2018;103(2):210-216.6) Medlineplus, National Library of Medicine 2020. Dihydropyrimidinedehydrogenase deficiency, accessed 14 February 2021,https://medlineplus.gov/genetics/condition/dihydropyrimid twz-mkavvweoyxeqm-kytrbphstx/#resources7) Meredith N, Nicol MATHEW, Vicky RCM, nerissa Milligan ABP. Purine andPyrimidine Metabolism: Pyrimidine Metabolism: DihydropyrimidineDehydrogenase. Frank's Principles and Practice of MedicalGenetics and Genomics: Metabolic Disorders, Seventh Edition. Edited byKAUSHIK Rodriguez et al, Elsevier. 2020. Sections 6.3.4 - 6.3.4.4https://qrh-ybtasmnxzav-ujr.Apiaryain.[facility].org/#!/freeman nt/book/3-s2.0-U6877055857989917386?scrollTo=%34ox47405095) Violette RS, Maggi MH, Nasreen CE, et al. Clinical PharmacogeneticsImplementation Consortium (CPIC) Guideline for UGT1A1 and AtazanavirPrescribing. Clinical Pharmacology and Therapeutics (2016) Apr;99(4):363-9.9) King Karol, Viky TRINIDAD. Overview of Glibert's syndrome. Drug TherBull. 2019 Aug 57(2):27-30.10) [facility] 2020, Gilbert Syndrome, accessed 14 February 2021,https://my.[facility].org/health/diseases/67450-yqro erts-syndromeDisclaimer:This test was developed and its performance characteristics determinedby [facility]'s Pathology and Laboratory Medicine Department. Ithas not been cleared or approved by the FDA. [facility] is regulated under CLIAas certified to perform high-complexity testing. This test is used forclinical purposes. It should not be regarded as investigational or forresearch.Testing and interpretation performed at [facility], [address] [place] [address]. CLIA Number: [id number] reviewed by Keri Yancey MD Performed By: #### D [facility] ####[facility] DALESCLIA [id number] [place] [address] [place] HBV core Ab Ser Qlon 025 HBV core Ab Ql (S) Negative Normal Negative [facility] Comment on above: Order Comment: Speci men Type: BLOOD SPECIMENOrdering Facility: [facility] Address: [address] [place] [address] Result Comment: No e vidence of current or past infection with Hepatitis B virus. Should recent infection be suspected, repeat testing may be considered 3-4 weeks after this draw. Performed By: #### 1 6933-4, 5195-3, 58297-6, 78081-6 ####[facility] LABCLIA [id number] [address] [facility] HBV surface Ab Ql (S)on 08-29 HBV surface Ab Qn (S) <8.00 Normal [facility] Comment on above: Order Comment: Speci men Type: BLOOD SPECIMENOrdering Facility: [facility] Address: [address] [place] [address] Result Comment: <8 m IU/mL: No serological evidence of immunity to Hepatitis B Virus.>/= 8 to <12 mIU/mL: No serological evidence of immunity to Hepatitis B Virus.>/= 12 mIU/mL: Consistent with serological evidence of immunity to Hepatitis B Virus. Performed By: #### 1 6933-4, 5195-3, 18270-0, 16531-1 ####[facility] LABCLIA [id number] [address] OF [place] HBV surface Ab Ser Qlon 08-29 HBV surface Ab Ql (S) Negative Normal [facility] Comment on above: Order Comment: Speci men Type: BLOOD SPECIMENOrdering Facility: [facility] Address: [address] [place] [address] Result Comment: No s erological evidence of immunity to Hepatitis B Virus. Performed By: #### 1 6933-4, 5194-3, 70124-6, 42769-2 ####[facility] LABCLIA [id number] [place] [address] [place] HBV surface Ag Ser Qlon 02 HBV surface Ag Ql (S) Negative Normal Negative [facility] Comment on above: Order Comment: Speci men Type: BLOOD SPECIMENOrdering Facility: [facility] Address: [address] [place] [address] Performed By: #### 1 6933-4, 5195-3, 10546-4, 13889-5 ####[facility] LABIA [id number] [place] [address] [place] HCV Ab Ser Qlon 09-16-2024 HCV Ab Ql (S) Negative Normal Negative [facility] Comment on above: Order Comment: Speci men Type: BLOOD SPECIMENOrdering Facility: [facility] Address: [address] [place] [address] Result Comment: The result suggests no evidence of active infection with Hepatitis C virus. Should recent infection be suspected, repeat testing may be considered 4-6 weeks after this draw. Performed By: #### 1 6128-1 ####[facility] LABCLIA [id number] [place] [address] [place] HIV 1+2 Ab IA Qlon HIV 1 and 2 Ab IA.rapid Nom (S/P/Bld) Normal [facility] Comment on above: Order Comment: Speci men Type: BLOOD SPECIMENOrdering Facility: [facility] Address: [address] [place] [address] Result Comment: Test not indicated. Performed By: #### 1 6933-4, 5195-3, 98055-7, 22646-0 ####[facility] LABCLIA [id number] [place] [address] [place] HIV 1+2 Ab+HIV1 p24 Ag IA Ql Non-Reactive Normal Nonreactive [facility] Comment on above: Order Comment: Speci men Type: BLOOD SPECIMENOrdering Facility: [facility] Address: [address] [place] [address] Performed By: #### 1 6933-4, 5195-3, 19256-0, 01524-0 ####[facility] LABCLIA [id number] [place] [address] [place] HIV immunoassay testing algorithm interpretation (S/P/Bld) [Interp] Normal [facility] Comment on above: Order Comment: Speci men Type: BLOOD SPECIMENOrdering Facility: [facility] Address: [address] [place] [address] Result Comment: No e vidence of HIV-1 or HIV-2 infection. Should recent infection be suspected, repeat testing may be considered 2-3 weeks after this draw.[place] Rev. Code 3701.243(E): This information has been disclosed to you from confidential records protected from disclosure by state law. ???You shall make no further disclosure of this information without the specific, written, and informed release of the individual to whom it pertains or as otherwise permitted by state law. A general authorization for the release of medical or other information is not sufficient for the purpose of the release of HIV test results or diagnoses. Performed By: #### 1 6933-4, 5195-3, 22808-9, 68543-3 ####[facility] LABCLIA [id number] [place] [address] [place] US LEG VEIN DVT UNL VAS LABo n 09-16-2024 US LEG VEIN DVT UNL VAS LAB Normal [facility] CNOVSPon 09-15-2024 CNOVSP Normal [facility] CNPNon 09-15-2024 CNPN Normal [facility] Surgery Visit Reporton 09-15 Surgery Visit Report [facility] [address] [place], [place] [address] OFFICE VISIT Date of Service: 09/15/24 MR#: [id number] Acct: [id number] Name: MARIMAR WANG Rep #: [id number] : 1960 Provider: Dr. Kenya fuentes MD Age/Sex: 64/F Location: [facility] Status: Signed Intake Vital Signs 09/03/24 14:00 Height 5 ft 3 in Intake Visit Reasons: ER FU RECTAL ABSCESS Chief Complaint: ER FU rectal abscess Is patient in pain?: Yes Pain scale (1-10): 6 Allergies doxycycline calcium (From Vibramycin) Allergy (Verified 09/02/24 15:44) Anaphylaxis doxycycline hyclate (From Vibramycin) Allergy (Verified 09/02/24 15:44) Anaphylaxis doxycycline monohydrate (From Vibramycin) Allergy (Verified 09/02/24 15:44) Anaphylaxis NSAIDS (Non-Steroidal Anti-Inflamma Allergy (Verified 09/02/24 15:44) Anaphylaxis duloxetine (From Cymbalta) Adverse Reaction (Verified 09/02/24 15:44) HEADACHE AND UPSET STOMACH hydrocodone bitartrate (From Vicodin) Adverse Reaction (Verified 09/02/24 15:44) STOMACH UPSET hydromorphone HCl (From Dilaudid) Adverse Reaction (Verified 09/02/24 15:44) Vomiting morphine Adverse Reaction (Verified 09/02/24 15:44) Vomiting Medications ???Medication ???Instructions ???Recorded ???Confirmed ???Type albuterol sulfate 90 mcg/actuation 2 puff inhalation Q4H PRN PRN 09/15/24 History aerosol inhaler Shortness Of Breath clopidogrel 75 mg tablet 75 mg PO QHS BLOOD THINNER 5 09/15/24 History fluoxetine 20 mg capsule 60 mg PO QHS MENTAL HEALTH 6 09/15/24 History peg 438-olxdffqezink-uabspac n 1 1 drp OP 4X/DAY DRY EYES 11/13/17 09/15/24 History %-0.2 %-0.2 % eye drops (Dry Eye Relief) leflunomide 20 mg tablet (Arava) 20 mg PO QHS RA 03/22/18 09/15/24 History amlodipine 5 mg tablet 7.5 mg PO QHS BP 08/15/22 09/15/24 History mometasone 50 mcg/actuation nasal 2 spray intranasal .QAM ALLERGIES 08/15/22 09/15/24 History spray ergocalciferol (vitamin D2) 1,250 1,250 mcg PO .EVERY OTHER WEEK 09/15/24 History mcg (50,000 unit) capsule (Vitamin SUPPELEMNT D2) mecobalamin (vitamin B12) 1,000 1,000 mcg sublingual QHS SUPPLEMEN T 12/06/22 09/15/24 History mcg disintegrating tablet,sublingual abatacept 50 mg/0.4 mL 50 mg subcut QMONTH RA 12/17/22 History subcutaneous syringe (Orencia) polyethylene glycol 3350 17 4 g PO PRN PRN Constipation 09/15/24 History gram/dose oral powder (Miralax) gnyxgq-wrzlmvko-yednzqy See Rx Instructions PO .COMPLEX 09/15/24 Rx 36,000-114,000-180,000 unit #300 caps capsule,delay rel (Creon) acetaminophen 500 mg tablet 1,000 mg PO Q6H PRN fever or pain 11/15/23 09/15/24 History atorvastatin 80 mg tablet 80 mg PO QHS 11/15/23 09/15/24 His tory hydrocortisone 2.5 % topical cream 1 applic VA BID PRN Crohn's 10/1909/15/24 Rx with perineal applicator disease #30 grams meclizine 25 mg tablet 25 mg PO DAILY PRN PRN dizziness 0 03/17/24 09/15/24 History budesonide 3 mg 6 mg (2 x 3 mg) PO DAILY #60 caps 04/09/24 09/15/24 Rx capsule,delayed,extended release pantoprazole 40 mg tablet,delayed 40 mg PO DAILY #90 TABLETS 09/15/24 Rx release dicyclomine 10 mg capsule 10 mg PO TID PRN for abdominal 09/15/24 Rx pain #90 caps alprazolam 1 mg tablet 1 mg PO TID 30 days #90 tabs 08/3109/15/24 Rx bupropion HCl (smoking deter) 150 150 mg PO QHS 09/02/24 09/15/24 H istory mg tablet,12 hr sustained-release(smokin g deterrent) methylprednisolone 4 mg tablets in PO UD 09/02/24 09/15/24 History a dose pack tramadol 50 mg tablet 50 mg PO Q6H PRN PRN pain 09/02/24 09/15/24 History promethazine 25 mg tablet 25 mg PO Q6H PRN PRN Nausea #60 09/15/24 Rx tabs Have you fallen in the past year?: Yes Subjective Details: The patient is a 64-year-old female who was returning today for post procedure visit for an I D of a right perirectal abscess. At the time of that procedure it was noted that this apparent abscess seem to be associated with a perianal mass. This was biopsied and came back as a squamous cell carcinoma. She seems to be doing well. She does admit to having some drainage and but is still having a fair amount of pain. She is to follow-up with oncology this afternoon. She does complain of some new tenderness in the right groin Objective Details: She is alert and oriented x 3. She is in no acute distress. Examination of the right perirectal area reveals a visibly obvious mass still essentially unchanged. The site of the I D seems to be healing nicely. There is some mild drainage present. No obvious undrained abscess. It appears that she does have some tender lymphadenopathy in the right groin (more content not included)... 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 Scheduled with Oncology 09/15/2024. Surgeon that biopsied told her it would likely be treated with radiation or chemo. Patient asking if she will be able to continue Orencia infusion. Last infusion 07/02/2024. Patient states she tested positive for Covid on 09/02/2024. Patient is resting and hydrating. Patient will reach out to her PCP. CLIVE Levi Niharika, MD 09/10/2024 4:30 PM Signed We will have to discuss this with her oncologist Rosio Buck LPN 09/11/2024 8:18 AM Signed Oncology appointment on 09/15/[address] Josh Bennett. CLIVE Levi Tina, LPN 09/11/2024 8:28 AM Signed Good morning Marimar Wolf is established in Rheumatology with Dr. Jennifer Arias. The patient is scheduled to see you on 09/15/2024 to establish care for recent diagnosis of small squamous cell carcinoma. The patient is being treated with Orencia infusions for RA. Please reach out to Sarah Pearson PA-C and Dr. Jennifer Arias after your evaluation. They would like your recommendations from an Oncology point of view on continuing with the Orencia infusions after you have decided on treatment for carcinoma. Dr. Arias will be out of the office for three weeks and Sarah will be covering in her absence. Thank you for your input in caring for our mutual patient. Respectfully, Rosio Buck LPN Nurse for Dr. Jennifer Arias, [facility] Sarah Pearson PA-C 09/16/2024 11:56 AM Signed Josh Bennett DO Sharma, Niharika, MD; Sarah Pearson PA-C Hi Amanda. Rosio Buck LPN asked me to get in touch with you after I saw Mrs. Wang in regard to use of Orencia. I recommend it be placed on hold. As you may know, oftentimes patients receiving chemotherapy have relief of her RA symptoms throughout their treatment course and Orencia may increase her chance of infection. After she completes chemotherapy and radiation, she can resume Orencia about 6 weeks later. Thank you, Sarah Andrade PA-C 10/01/2024 1:09 PM Signed JILLIAN Arias- leaving for your review. I did see this patient recently and RA stable on just Arava 20 mg daily. CY Cruz-C Allergies As of Date: 09/10/2024 Noted Allergy Reaction CYMBALTA (DULOXETINE) 11/21/2023 5 - Intolerance Comments: Headaches NSAIDS (NON-STEROIDAL ANTI-INFLAM*04/16/2005 10 - Anaphylaxis Comments: Had anaphylactic reaction to Aleve VIBRAMYCIN (DOXYCYCLINE CALCIUM) 04/16/2005 10 - Anaphylaxis DILAUDID (HYDROMORPHONE (BULK)) 11/21/2023 11 - Vomiting MORPHINE 11/21/2023 11 - Vomiting HORSE/EQUINE CONTAINING PRODUCTS 11/28/2023 7 - Swelling VICODIN (HYDROCODONE-ACETAMINOPH E*11/21/2023 11 - Vomiting Comments: Can take if given antiemetic at same time Date Reviewed: 07/08/2024 Reviewed by: Latoya Cary, RN - Fully Assessed Reason for Visit: Patient Question [0487] Continuity Of Care [086] Cmt: Dr. Josh Bennett, Oncology Prescriptions as of 10/01/2024 - clindamycin (CLEOCIN) 300 mg capsule Take 300 mg by mouth three times a day. - cholecalciferol, Vitamin D3, (VITAMIN D3) 1,250 mcg (50,000 unit) cap capsule Take 1 capsule by mouth every other week. - iv contrast (will be provided with radiology test) CT Chest W -Inject, intravenously, once for 1 dose.No IV access, insert saline lock prior to the beginning of sedation, infusion, injection of imaging exam. Discontinue saline lock post exam. If Pt. has a central line or IVAD, may access for administration according to line specific nursing protocol. Once exam is complete flush line and de-access according to line specific nursing protocol in the CT contrast administration guidelines link. - oxyCODONE-acetaminophen (PERCOCET) 5-325 mg tablet Take by mouth every 6 hours as needed. - leflunomide (ARAVA) 20 mg tablet Take 1 tablet by mouth once daily - Fluticasone Propionate (CUTIVATE) 0.05 % cream Apply to affected area two times a day. - meclizine (ANTIVERT) 25 mg tab Take 25 mg by mouth three times a day as needed (for dizziness). - atorvastatin (LIPITOR) 80 mg tablet Take 80 mg by mouth once daily. - wjamoq-rllpwbmb-pdcepqz (CREON 36) 36,000-114,000- 180,000 unit delayed release capsule Take by mouth with meals and at bedtime. With snacks also - furosemide (LASIX) 20 mg tablet Take 20 mg by mouth once daily. - budesonide, enteric coated (ENTOCORT EC) 3 mg 24 hr capsule Take 2 capsules by mouth every afternoon. - pantoprazole DR (PROTONIX) 40 mg tablet Take 40 mg by mouth once daily. - dicyclomine (BENTYL) 20 mg tab (more content not included)... Normal [facility] CNPNon 09-07-2024 CNPN Normal [facility] Absolute lymphocyte countOrd ered By: Kenya Garcia on 09-03-2024 Lymphocytes Auto (Unsp spec) [#/Vol] 0.97 10*3/uL 0.83-4.51 [facility] Absolute neutrophil countOrd ered By: Kenya Garcia on 09-03-2024 Neutrophils (Bld) [#/Vol] 6.1 10*3/uL 2.0-7.7 [facility] Automated lymphocyte count a s percentage of total leukocytesOrdered By: Kenya Garcia on 09-03-2024 Lymphocytes/100 WBC Auto (Unsp spec) 11.9 % Low 19-41 [facility] Basic Metabolic Profile (BMP )on 09-03-2024 BUN/CRE 16.0 RATIO Normal 10-20 [facility] Comment on above: Performed By: #### L 500.2500, L100.0100 ####[facility] [address] [place], [address] CA,Total 8.2 mg/dL Low 8.5-10.1 [facility] Comment on above: Performed By: #### L 500.2500, L100.0100 ####[facility] [address] [facility] [address] Chloride [Moles/Vol] 102 mmol/L Normal 98-107 [facility] Comment on above: Performed By: #### L 500.2500, L100.0100 ####[facility] [address] [place], [address] CO2 [Moles/Vol] 24.0 mmol/L Normal 21.0-32.0 [facility] Comment on above: Performed By: #### L 500.2500, L100.0100 ####[facility] [address] [place], [address] Creatinine [Mass/Vol] 0.50 mg/dL Low 0.55-1.02 [facility] Comment on above: Result Comment: The validity of the calculated GFR GFRAA in patients over 70 years has not been determined. Clinical correlation is essential. Performed By: #### L 500.2500, L100.0100 ####[facility] [address] [place], [address] ECRCL 76.90 ml/min Normal [facility] Comment on above: Performed By: #### L 500.2500, L100.0100 ####[facility] [address] [place], [address] EST GFR - AA 159 mL/min Normal >60 [facility] Comment on above: Result Comment: Afri can [place] GFR Calc Performed By: #### L 500.2500, L100.0100 ####[facility] [address] [place], [address] GAP 7 Normal 5-15 [facility] Comment on above: Performed By: #### L 500.2500, L100.0100 ####[facility] [address] [place], [address] GFR/1.73 sq M.predicted among non-blacks MDRD (S/P/Bld) [Vol rate/Area] 132 mL/min/{1.73_m2} Normal >60 [facility] Comment on above: Result Comment: Non- GFR Calc Performed By: #### L 500.2500, L100.0100 ####[facility] [address] [place], [address] Glucose [Mass/Vol] 92 mg/dL Normal 74-106 [facility] Comment on above: Performed By: #### L 500.2500, L100.0100 ####[facility] [address] [place], [address] Potassium [Moles/Vol] 3.2 mmol/L Low 3.5-5.1 [facility] Comment on above: Performed By: #### L 500.2500, L100.0100 ####[facility] [address] [place], [address] Sodium [Moles/Vol] 133 mmol/L Low 136-145 [facility] Comment on above: Performed By: #### L 500.2500, L100.0100 ####[facility] [address] [place], [address] Urea nitrogen [Mass/Vol] 8 mg/dL Normal 7-18 [facility] Comment on above: Performed By: #### L 500.2500, L100.0100 ####[facility] [address] [place], [address] Basophil percentageOrdered B y: Kenya Garcia on 09-03-2024 Basophils/100 WBC (Bld) 0.7 % 0-1 [facility] Blood urea nitrogen (BUN)/cr eatinine ratioOrdered By: Kenya Garcia on 09-03-2024 Urea nitrogen/Creatinine [Mass ratio] 16.0 mg/mg 10-20 [facility] CBC W/Diff, Automatedon Absolute Lymph 0.97 X10 3/uL Normal 0.83-4.51 [facility] Comment on above: Performed By: #### L 500.2500, L100.0100 ####[facility] [address] [place], [address] Absolute Neut 6.1 X10 3/uL Normal 2.0-7.7 [facility] Comment on above: Performed By: #### L 500.2500, L100.0100 ####[facility] [address] [place], [address] Basophils/100 WBC (Bld) 0.7 % Normal 0-1 [facility] Comment on above: Performed By: #### L 500.2500, L100.0100 ####[facility] [address] [place], [address] Eosinophils/100 WBC (Bld) 0.5 % Normal 0-5 [facility] Comment on above: Performed By: #### L 500.2500, L100.0100 ####[facility] [address] [place], [address] Erythrocyte distribution width (RBC) [Ratio] 17.3 % High 11.6-14.6 [facility] Comment on above: Performed By: #### L 500.2500, L100.0100 ####[facility] [address] [place], [address] Hematocrit (Bld) [Volume fraction] 31.2 % Low 37-47 [facility] Comment on above: Performed By: #### L 500.2500, L100.0100 ####[facility] [address] [place], [address] Hemoglobin (Bld) [Mass/Vol] 9.6 g/dL Low 12.0-15.0 [facility] Comment on above: Performed By: #### L 500.2500, L100.0100 ####[facility] [address] [place], [address] IG% 0.500 Normal 0.0-0.9 [facility] Comment on above: Result Comment: IG% - Immature Granulocytes (promyelocytes, myelocytes and metamyelocytes) > 1% indicates that a LEFT SHIFT is Present. Performed By: #### L 500.2500, L100.0100 ####[facility] [address] [place], [address] Lymphocytes/100 WBC (Bld) 11.9 % Low 19-41 [facility] Comment on above: Performed By: #### L 500.2500, L100.0100 ####[facility] [address] [place], [address] MCH (RBC) [Entitic mass] 25.5 pg Low 27.0-32.0 [facility] Comment on above: Performed By: #### L 500.2500, L100.0100 ####[facility] [address] [place], [address] MCHC (RBC) [Mass/Vol] 30.8 g/dL Low 32-36 [facility] Comment on above: Performed By: #### L 500.2500, L100.0100 ####[facility] [address] [place], [address] MCV (RBC) [Entitic vol] 83.0 fL Normal 81-99 [facility] Comment on above: Performed By: #### L 500.2500, L100.0100 ####[facility] [address] [place], [address] Monocytes/100 WBC (Bld) 11.7 % High 0-10 [facility] Comment on above: Performed By: #### L 500.2500, L100.0100 ####[facility] [address] [place], [address] Neutrophils/100 WBC (Bld) 74.7 % High 47-70 [facility] Comment on above: Performed By: #### L 500.2500, L100.0100 ####[facility] [address] [place], [address] Nucleated RBC (Bld) [#/Vol] 0 10*3/uL Normal 0-5 [facility] Comment on above: Performed By: #### L 500.2500, L100.0100 ####[facility] [address] [place], [address] Platelet mean volume (Bld) [Entitic vol] 11.4 fL Normal 6.2-12.0 [facility] Comment on above: Performed By: #### L 500.2500, L100.0100 ####[facility] [address] [place], [address] Platelets (Bld) [#/Vol] 219 10*3/uL Normal 150-450 [facility] Comment on above: Performed By: #### L 500.2500, L100.0100 ####[facility] [address] [place], [address] RBC (Bld) [#/Vol] 3.76 10*6/uL Low 4.2-5.4 [facility] Comment on above: Performed By: #### L 500.2500, L100.0100 ####[facility] [address] [place], [address] RDW SD 52.7 fl High 35.1-43.9 [facility] Comment on above: Performed By: #### L 500.2500, L100.0100 ####[facility] [address] [place], [address] WBC (Bld) [#/Vol] 8.1 10*3/uL Normal 4.4-11.0 [facility] Comment on above: Performed By: #### L 500.2500, L100.0100 ####[facility] [address] [place], [address] Carbon dioxide measurementOr dered By: Kenya Garcia on 09-03-2024 CO2 [Moles/Vol] 24.0 mmol/L 21.0-32.0 [facility] Chloride measurementOrdered By: Kenya Garcia on 09-03-2024 Chloride [Moles/Vol] 102 mmol/L 98-107 [facility] Eosinophil percentageOrdered By: Kenya Garcia on 09-03-2024 Eosinophils/100 WBC (Bld) 0.5 % 0-5 [facility] Erythrocyte distribution wid th ratioOrdered By: Kenya Garcia on 09-03-2024 Erythrocyte distribution width (RBC) [Ratio] 17.3 % High 11.6-14.6 [facility] Erythrocyte distribution wid th standard deviationOrdered By: Kenya Garcia on 09-03-2024 Erythrocyte distribution width (RBC) [Entitic vol] 52.7 fL High 35.1-43.9 [facility] Erythrocyte distribution width (RBC) [Ratio] 52.7 fl High 35.1-43.9 [facility] Estimated glomerular filtrat ion rate (GFR) AmericanOrdered By: Kenya Garcia on 09-03-2024 Estimated GFR (MDRD) Amer 159 mL/min >60 [facility] Comment on above: GFR Calc Estimation of creatinine mikey aranceOrdered By: Kenya Garcia on 09-03-2024 Estimated Creatinine Clearance Calc 76.90 ml/min [facility] Glomerular filtration rate ( GFR) estimationOrdered By: Kenya Garcia on 09-03-2024 Estimated GFR (MDRD) Non-Af Amer 132 mL/min >60 [facility] Comment on above: Non- GFR Calc GFR/1.73 sq M.predicted among non-blacks MDRD (S/P/Bld) [Vol rate/Area] 132 mL/min/{1.73_m2} >60 [facility] Comment on above: Non- GFR Calc Glucose measurementOrdered B y: Kenya Garcia on 09-03-2024 Glucose [Mass/Vol] 92 mg/dL 74-106 [facility] Hematocrit Auto (Bld) [Volum e fraction]Ordered By: Kenya Garcia on 09-03-2024 Hematocrit (Bld) [Volume fraction] 31.2 % Low 37-47 [facility] Hemoglobin measurementOrdere d By: Kenya Garcia on 09-03-2024 Hemoglobin (Bld) [Mass/Vol] 9.6 g/dL Low 12.0-15.0 [facility] Immature granulocytes/100 WB C Auto (Bld)Ordered By: Kenya Garcia on 09-03-2024 Immature granulocytes/100 WBC (Bld) 0.500 % 0.0-0.9 [facility] Comment on above: IG% - Immature Granu locytes (promyelocytes, myelocytes and metamyelocytes) > 1% indicates that a LEFT SHIFT is Present. Lymphocytes Auto (Unsp spec) [#/Vol]Ordered By: Kenya Garcia on 09-03-2024 Lymphocytes (Bld) [#/Vol] 0.97 10*3/uL 0.83-4.51 [facility] Lymphocytes/100 WBC Auto (Un sp spec)Ordered By: Kenya Garcia on 09-03-2024 Lymphocytes/100 WBC (Bld) 11.9 % Low 19-41 [facility] MCV (mean corpuscular volume ) determinationOrdered By: Kenya Garcia on 09-03-2024 MCV (RBC) [Entitic vol] 83.0 fL 81-99 [facility] MR/[id number] 09-03-2024 MR/POSTOPAN2 [facility] Medical Records Department [address] [place] [address] Anesthesia Postop Eval II 09/03/24 1608 MR#: [id number] Acct: [id number] Name: MARIMAR WANG Rep #: [id number] : 1960 64 From: Stas Young MD PCP: SINAI Arriola Status:ADM AMOR Y Race: C Location: [place] [address] Anesthesia Postop Eval I Sum Postop Eval Completion status Anesthesia document: Postop Eval 1 completed: Yes Anesthesia Postop Eval I Summary Anesthesia Postop Eval I Summary: Anesthesia Postop Eval I: Assessment Summary Airway patent Yes 09/03/24 16:08 Spontaneous unlabored Yes 09/03/24 16:08 respirations Mental status Awake,Calm 09/03/24 16:08 nausea No 09/03/24 16:08 Vomiting No 09/03/24 16:08 Anesthesia Postop Eval I: Fluid Summary Crystalloid volume administer 10 09/03/24 16:08 (ml) Colloids volume administered ( ml) Blood Product volume administered (ml) Total IV fluid infused 10 09/03/24 16:08 Anesthesia Postop Eval I: Summary Notes Anesthesia Complication No 09/03/24 16:08 Anesthesia Complication Comment: Post-operative progress note Anesthesia: Postop Eval II Evaluation Mental status: Awake and Calm Pain Level: 2 nausea: No Vomiting: No Complications Anesthesia Complication: No 09/03/24 1608 Date Stas Young MD Cosigner Signature: Date CC: Signed Normal [facility] Mean corpuscular hemoglobin (MCH) determinationOrdered By: Kenya Garcia on 09-03-2024 MCH (RBC) [Entitic mass] 25.5 pg Low 27.0-32.0 [facility] Mean corpuscular hemoglobin concentration (MCHC) determinationOrdered By: Kenya Garcia on 09-03-2024 MCHC (RBC) [Mass/Vol] 30.8 g/dL Low 32-36 [facility] Mean platelet volume determi nationOrdered By: Kenya Garcia on 09-03-2024 Platelet mean volume (Bld) [Entitic vol] 11.4 fL 6.2-12.0 [facility] Monocyte percentageOrdered B y: Kenya Garcia on 09-03-2024 Monocytes/100 WBC (Bld) 11.7 % High 0-10 [facility] Neutrophil percentageOrdered By: Kenya Garcia on 09-03-2024 Neutrophils/100 WBC (Bld) 74.7 % High 47-70 [facility] Nucleated red blood cell per centageOrdered By: Kenya Garcia on 09-03-2024 Nucleated RBC/100 WBC (Bld) [Ratio] 0 % 0-5 [facility] Platelet countOrdered By: St yury Garcia on 09-03-2024 Platelets (Bld) [#/Vol] 219 10*3/uL 150-450 [facility] Potassium measurementOrdered By: Kenya Garcia on 09-03-2024 Potassium [Moles/Vol] 3.2 mmol/L Low 3.5-5.1 [facility] RBC Auto (Bld) [#/Vol]Ordere d By: Kenya Garcia on 09-03-2024 RBC (Bld) [#/Vol] 3.76 10*6/uL Low 4.2-5.4 [facility] Serum anion gap measurementO rdered By: Kenya Garcia on 09-03-2024 Anion gap [Moles/Vol] 7 mmol/L 5-15 [facility] Serum or plasma calcium alexis urement (mass/volume)Ordered By: Kenya Garcia on 09-03-2024 Calcium [Mass/Vol] 8.2 mg/dL Low 8.5-10.1 [facility] Serum or plasma creatinine m easurement (mass/volume)Ordered By: Kenya Garcia on 09-03-2024 Creatinine [Mass/Vol] 0.50 mg/dL Low 0.55-1.02 [facility] Comment on above: The validity of the calculated GFR & GFRAA in patients over 70 years has not been determined. Clinical correlation is essential. Serum or plasma urea nitroge n measurement (mass/volume)Ordered By: Kenya Garcia on 09-03-2024 Urea nitrogen [Mass/Vol] 8 mg/dL 7-18 [facility] Sodium levelOrdered By: Swapnil Garcia on 09-03-2024 Sodium [Moles/Vol] 133 mmol/L Low 136-145 [facility] White blood cell (WBC) count Ordered By: Kenya Garcia on 09-03-2024 WBC (Bld) [#/Vol] 8.1 10*3/uL 4.4-11.0 [facility] Abdomen/Pelvis W IV Cont ONL Yon 09-02-2024 Abdomen/Pelvis W IV Cont ONLY [facility] Imaging Services [address] [place], [place] [address] Abdomen/Pelvis W IV Cont ONLY MR#: [id number] Acct: [id number] Name: MARIMAR WANG Rep #: [id number] : 1960 F 64 From: Pablo Mendoza MD PCP: [facility] Arriola Status: REG ER Study: Abdomen/Pelvis W IV Cont ONLY Date of Exam: Exam# [id number] Ordering Dr: Sonia Germain DO PROCEDURE: ABDOMEN/PELVIS W IV CONT ONLY REASON FOR EXAM: Concern for rectal abscess. TECHNIQUE: Abdomen and pelvis CT with intravenous contrast. COMPARISON: None. FINDINGS: Lung bases: Clear Liver: Unremarkable. Gallbladder: Unremarkable. Spleen: Unremarkable. Pancreas: Unremarkable. Adrenals: Unremarkable. Kidneys: Unremarkable. Bladder: Unremarkable. Reproductive Organs: Surgically absent uterus. Bowel: Postsurgical changes of Vanessa fundoplication. Normal caliber colon and small bowel. Appendix: Normal. Lymph nodes: No suspicious lymph node enlargement. Vasculature: Moderate atherosclerosis. Normal caliber abdominal aorta. Peritoneum / Retroperitoneum: No ascites. No free air. Bones: Left hip arthroplasty. Right perineum thick-walled 5.4 x 1.6 cm fluid collection with adjacent fat stranding most compatible with an abscess. CT/Abdomen/Pelvis W IV Cont ONLY IMPRESSION: Right perineum fluid collection most compatible with an abscess. One or more dose reduction techniques were used (e.g., Automated exposure control, adjustment of the mA and/or kV according to patient size, use of iterative reconstruction technique). Reading Location: [facility] CC: 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-C Julio Arriaga; Dr. Sonia Germain DO Bike Mechanic: Signed Normal [facility] Albumin to globulin ratioOrd ered By: Sonia Germain on 09-02-2024 Albumin/Globulin [Mass ratio] 0.7 {ratio} Low 0.9-2.4 [facility] Bilirubin Test strip Ql (U)O rdered By: Sonia Germain on 09-02-2024 Bilirubin Ql (U) Negative Negative [facility] Bilirubin, totalOrdered By: Sonia Germain on 09-02-2024 Bilirubin [Mass/Vol] 0.30 mg/dL 0.20-1.00 [facility] Comment on above: For patients on eltr ombopag therapy, use of Dimension [place] TBIL is not recommended. CBC W/Diff, Automatedon 02-0 5-2024 Absolute Lymph 0.64 X10 3/uL Low 0.83-4.51 [facility] Comment on above: Performed By: #### L 500.4050, L100.0100 ####[facility] [address] [place], [address] Absolute Neut 9.5 X10 3/uL High 2.0-7.7 [facility] Comment on above: Performed By: #### L 500.4050, L100.0100 ####[facility] [address] [place], [address] Basophils/100 WBC (Bld) 0.8 % Normal 0-1 [facility] Comment on above: Performed By: #### L 500.4050, L100.0100 ####[facility] [address] [place], [address] Eosinophils/100 WBC (Bld) 0.4 % Normal 0-5 [facility] Comment on above: Performed By: #### L 500.4050, L100.0100 ####[facility] [address] [place], [address] Erythrocyte distribution width (RBC) [Ratio] 17.3 % High 11.6-14.6 [facility] Comment on above: Performed By: #### L 500.4050, L100.0100 ####[facility] [address] [place], [address] Hematocrit (Bld) [Volume fraction] 34.1 % Low 37-47 [facility] Comment on above: Performed By: #### L 500.4050, L100.0100 ####[facility] [address] [place], [address] Hemoglobin (Bld) [Mass/Vol] 10.4 g/dL Low 12.0-15.0 [facility] Comment on above: Performed By: #### L 500.4050, L100.0100 ####[facility] [address] [place], [address] IG% 0.600 Normal 0.0-0.9 [facility] Comment on above: Result Comment: IG% - Immature Granulocytes (promyelocytes, myelocytes and metamyelocytes) > 1% indicates that a LEFT SHIFT is Present. Performed By: #### L 500.4050, L100.0100 ####[facility] [address] [place], [address] Lymphocytes/100 WBC (Bld) 5.7 % Low 19-41 [facility] Comment on above: Performed By: #### L 500.4050, L100.0100 ####[facility] [address] [place], [address] MCH (RBC) [Entitic mass] 25.7 pg Low 27.0-32.0 [facility] Comment on above: Performed By: #### L 500.4050, L100.0100 ####[facility] [address] [place], [address] MCHC (RBC) [Mass/Vol] 30.5 g/dL Low 32-36 [facility] Comment on above: Performed By: #### L 500.4050, L100.0100 ####[facility] [address] [place], [address] MCV (RBC) [Entitic vol] 84.4 fL Normal 81-99 [facility] Comment on above: Performed By: #### L 500.4050, L100.0100 ####[facility] [address] [place], [address] Monocytes/100 WBC (Bld) 8.7 % Normal 0-10 [facility] Comment on above: Performed By: #### L 500.4050, L100.0100 ####[facility] [address] [place], [address] Neutrophils/100 WBC (Bld) 83.8 % High 47-70 [facility] Comment on above: Performed By: #### L 500.4050, L100.0100 ####[facility] [address] [place], [address] Nucleated RBC (Bld) [#/Vol] 0 10*3/uL Normal 0-5 [facility] Comment on above: Performed By: #### L 500.4050, L100.0100 ####[facility] [address] [place], [address] Platelet mean volume (Bld) [Entitic vol] 11.0 fL Normal 6.2-12.0 [facility] Comment on above: Performed By: #### L 500.4050, L100.0100 ####[facility] [address] [place], [address] Platelets (Bld) [#/Vol] 247 10*3/uL Normal 150-450 [facility] Comment on above: Performed By: #### L 500.4050, L100.0100 ####[facility] [address] [place], [address] RBC (Bld) [#/Vol] 4.04 10*6/uL Low 4.2-5.4 [facility] Comment on above: Performed By: #### L 500.4050, L100.0100 ####[facility] [address] [place], [address] RDW SD 53.5 fl High 35.1-43.9 [facility] Comment on above: Performed By: #### L 500.4050, L100.0100 ####[facility] [address] [place], [address] WBC (Bld) [#/Vol] 11.3 10*3/uL High 4.4-11.0 [facility] Comment on above: Performed By: #### L 500.4050, L100.0100 ####[facility] [address] [place], [address] CNOVon 09-02-2024 CNOV Normal [facility] Chest PA and Lateralon 09-02 Chest PA and Lateral [facility] Imaging Services [address] [place] [address] Chest PA and Lateral MR#: [id number] Acct: [id number] Name: MARIMAR WANG Rep #: [id number] : 1960 F 64 From: Joan Dow MD PCP: Julio Arriaga NP-C Status: [facility] Study: Chest PA and Lateral Date of Exam: 09/02/24 Exam# [id number] Ordering Dr: Sonia Germain DO EXAM: XR Chest, 2 Views CLINICAL INDICATION: TECHNIQUE: Frontal and lateral views of the chest. COMPARISON: No relevant prior studies available. FINDINGS: LUNGS AND PLEURAL SPACES: Unremarkable. No consolidation. No pneumothorax. HEART: Unremarkable. No cardiomegaly. MEDIASTINUM: Unremarkable. Normal mediastinal contour. BONES/JOINTS: Unremarkable. No acute fracture. RAD/Chest PA and Lateral IMPRESSION: No acute cardiopulmonary process. Reading Location: [facility] CC: 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-C Julio Arriaga; Dr. Sonia Germain DO Bike Mechanic: Signed Normal [facility] Comprehensive Metabolic Prof ilon 09-02-2024 Albumin [Mass/Vol] 2.7 g/dL Low 3.2-5.0 [facility] Comment on above: Performed By: #### L 500.4050, L100.0100 ####[facility] [address] [place], [address] Albumin/Globulin [Mass ratio] 0.7 {ratio} Low 0.9-2.4 [facility] Comment on above: Performed By: #### L 500.4050, L100.0100 ####[facility] [address] [place], [address] ALK P 87 U/L Normal 45-117 [facility] Comment on above: Performed By: #### L 500.4050, L100.0100 ####[facility] [address] [place], [address] ALT [Catalytic activity/Vol] 17 U/L Normal 13-56 [facility] Comment on above: Performed By: #### L 500.4050, L100.0100 ####[facility] [address] [place], [address] AST [Catalytic activity/Vol] 18 U/L Normal 15-37 [facility] Comment on above: Performed By: #### L 500.4050, L100.0100 ####[facility] [address] [place], [address] Bilirubin [Mass/Vol] 0.30 mg/dL Normal 0.20-1.00 [facility] Comment on above: Result Comment: For patients on eltrombopag therapy, use of Dimension [place] TBIL is not recommended. Performed By: #### L 500.4050, L100.0100 ####[facility] [address] [place], [address] BUN/CRE 13.9 RATIO Normal 10-20 [facility] Comment on above: Performed By: #### L 500.4050, L100.0100 ####[facility] [address] [place], [address] CA,Total 8.7 mg/dL Normal 8.5-10.1 [facility] Comment on above: Performed By: #### L 500.4050, L100.0100 ####[facility] [address] [place], [address] Chloride [Moles/Vol] 102 mmol/L Normal 98-107 [facility] Comment on above: Performed By: #### L 500.4050, L100.0100 ####[facility] [address] [place], [address] CO2 [Moles/Vol] 24.0 mmol/L Normal 21.0-32.0 [facility] Comment on above: Performed By: #### L 500.4050, L100.0100 ####[facility] [address] [place], [address] Creatinine [Mass/Vol] 0.72 mg/dL Normal 0.55-1.02 [facility] Comment on above: Result Comment: The validity of the calculated GFR GFRAA in patients over 70 years has not been determined. Clinical correlation is essential. Performed By: #### L 500.4050, L100.0100 ####[facility] [address] [place], [address] ECRCL 74.18 ml/min Normal [facility] Comment on above: Performed By: #### L 500.4050, L100.0100 ####[facility] [address] [place], [address] EST GFR - AA 104 mL/min Normal >60 [facility] Comment on above: Result Comment: Afri can [place] GFR Calc Performed By: #### L 500.4050, L100.0100 ####[facility] [address] [place], [address] GAP 9 Normal 5-15 [facility] Comment on above: Performed By: #### L 500.4050, L100.0100 ####[facility] [address] [place], [address] GFR/1.73 sq M.predicted among non-blacks MDRD (S/P/Bld) [Vol rate/Area] 86 mL/min/{1.73_m2} Normal >60 [facility] Comment on above: Result Comment: Non- GFR Calc Performed By: #### L 500.4050, L100.0100 ####[facility] [address] [place], [address] Globulin (S) [Mass/Vol] 4.0 g/dL Normal 2.2-4.2 [facility] Comment on above: Performed By: #### L 500.4050, L100.0100 ####[facility] [address] [place], [address] Glucose [Mass/Vol] 91 mg/dL Normal 74-106 [facility] Comment on above: Performed By: #### L 500.4050, L100.0100 ####[facility] [address] [place], [address] Potassium [Moles/Vol] 3.3 mmol/L Low 3.5-5.1 [facility] Comment on above: Performed By: #### L 500.4050, L100.0100 ####[facility] [address] [place], [address] Sodium [Moles/Vol] 134 mmol/L Low 136-145 [facility] Comment on above: Performed By: #### L 500.4050, L100.0100 ####[facility] [address] [place], [address] T PROT 6.7 g/dL Normal 6.4-8.2 [facility] Comment on above: Performed By: #### L 500.4050, L100.0100 ####[facility] [address] [place], [address] Urea nitrogen [Mass/Vol] 10 mg/dL Normal 7-18 [facility] Comment on above: Performed By: #### L 500.4050, L100.0100 ####[facility] [address] [place], [address] Emergency Department Summary on 09-02-2024 Emergency Department Summary [facility] Medical Records Department [address] [place] [address] Emergency Department Summary 09/02/24 MR#: [id number] Acct: [id number] Name: MARIMAR WANG Rep #: [id number] : 1960 64 From: Sonia Germain DO PCP: Julio Arriaga NP-C Status:ADM AMOR Location: [place] [address] HPI History of Present Illness Chief Complaint: Abscess Informant: patient Narrative Narrative: Patient is a 64-year-old female with history of pancreatic insufficiency, recent diagnosis of Crohn's disease (on budesonide and Bentyl), fibromyalgia and rheumatoid arthritis (on abatacept and Arava), pancreatic insufficiency (on Creon) presenting with increased rectal pain and concern for rectal abscess. Denies any history of this. No she has been having an increasing pain of the right perirectal area for the past week. She states for the past 3 to 4 days she is also felt like she has been leaking stool. She notes her bowel movements have been normal. She denies any known history of fistulous. She has not had any fever but is also had a cough for the past 3 to 4 days and chills. She has had some nausea but this is chronic for her. Denies any abdominal pain acutely. Does follow with Dr. Hong MONTERO. Notes her daughter is also been sick. Reports some increase sinus drainage. No other complaints or concerns reported at this time. [facility] Medical History Mass of anus Perirectal abscess History of Crohn's disease Psoriatic arthritis Psoriasis Internal derangement of right knee Wears glasses Post-menopausal Depression Anxiety Ambulates with cane Injury of back Difficulty swallowing History of IBS History of hiatal hernia Former smoker Shortness of breath on exertion Chronic cough History of echocardiogram History of stress test Hypertension Cardiology follow-up encounter History of CHF (congestive heart failure) History of irregular heartbeat Acute pharyngitis, unspecified URI (upper respiratory infection) Contact with or suspected exposure to other viral communicable disease History of partial replacement of left hip joint using bipolar prosthesis Vitamin D deficiency HLD (hyperlipidemia) Insomnia Dry eye Regular astigmatism, bilateral PVCs (premature ventricular contractions) Coronary artery stenosis Chronic diastolic CHF (congestive heart failure) Iron malabsorption Osteoarthritis Lumbar spondylosis Osteoporosis Congenital cataract Intermittent palpitations Nausea TIA (transient ischemic attack) Acute maxillary sinusitis, unspecified Acute ethmoidal sinusitis, unspecified Acute frontal sinusitis, unspecified COPD exacerbation Foreign body in conjunctival sac, left eye, initial encounter Acute bacterial conjunctivitis Influenza A Acute bronchitis Back pain Limb weakness Asthma Anemia Arthritis Home Medications ???Medication ???Instructions ???Recorded ???Last Taken ???Type albuterol sulfate 90 mcg/actuation 2 puff inhalation Q4H PRN PRN Unknown History aerosol inhaler Shortness Of Breath clopidogrel 75 mg tablet 75 mg PO QHS BLOOD THINNER 5 09/01/24 History fluoxetine 20 mg capsule 60 mg PO QHS MENTAL HEALTH 6 09/01/24 History peg 274-ilcwxwxzfmgc-ocjiudi n 1 1 drp OP 4X/DAY DRY EYES 11/13/17 03/19/24 History %-0.2 %-0.2 % eye drops (Dry Eye Relief) leflunomide 20 mg tablet (Arava) 20 mg PO QHS RA 03/22/18 09/01/24 History amlodipine 5 mg tablet 7.5 mg PO QHS BP 08/15/22 09/01/24 History mometasone 50 mcg/actuation nasal 2 spray intranasal .QAM ALLERGIES 08/15/22 09/01/24 History spray ergocalciferol (vitamin D2) 1,250 1,250 mcg PO .EVERY OTHER WEEK 08/26/24 History mcg (50,000 unit) capsule (Vitamin SUPPELEMNT D2) mecobalamin (vitamin B12) 1,000 1,000 mcg sublingual QHS SUPPLEMEN T 12/06/22 09/01/24 History mcg disintegrating tablet,sublingual abatacept 50 mg/0.4 mL 50 mg subcut QMONTH RA 12/17/22 History subcutaneous syringe (Orencia) polyethylene glycol 3350 17 4 g PO PRN PRN Constipation Unknown History gram/dose oral powder (Miralax) zduzfd-gjmemhpa-txuwyiq See Rx Instructions PO .COMPLEX 09/01/24 Rx 36,000-114,000-180,000 unit #300 caps capsule,delay rel (Creon) acetaminophen 500 mg tablet 1,000 mg PO Q6H PRN fever or pain 11/15/23 09/01/24 History atorvastatin 80 mg tablet 80 mg PO QHS 11/15/23 09/01/24 His tory hydrocortisone 2.5 % topical cream 1 applic VA BID PRN Crohn's 10/19 Unknown Rx with perineal applicator disease #30 grams meclizine 25 mg tablet 25 mg PO DAILY PRN PRN dizziness 0 03/17/24 Unknown History budesonide 3 mg 6 mg (2 x 3 mg) PO DAILY #60 caps 04/09/24 09/01/24 Rx capsule,delayed,extended release herron (more content not included)... Normal [facility] Epithelial cells.squamous LM Ql (Urine sed)Ordered By: Sonia Germain on 09-02-2024 Epithelial cells.squamous LM.HPF (Urine sed) [#/Area] 0 /[HPF] 5-10 [facility] Glucose Ql (U)Ordered By: Joshua Germain on 09-02-2024 Urine Glucose (UA) Normal mg/dl Normal [facility] Hyaline casts LM.LPF (Urine sed) [#/Area]Ordered By: Sonia Germain on 09-02-2024 Hyaline casts (Urine sed) [#/Area] 0 /[LPF] 0-5 [facility] Hyaline casts LM Ql (Urine sed) 0-5 SEEN /lpf 0-5 [facility] Influenza virus A and B and SARS-CoV-2 (COVID-19) and Respiratory syncytial virus RNAOrdered By: Sonia Germain on 09-02-2024 SARS-CoV-2 (COVID-19) RNA CORAL+probe Ql (Unsp spec) SARS-CoV-2 (COVID 19 PCR) Abnormal [facility] Ketones Test strip Ql (U)Ord ered By: Sonia Germain on 09-02-2024 Ketones Ql (U) Negative Negative [facility] - Chemistry and C hemistry - challengeOrdered By: Sonia Germain on 09-02-2024 AST [Catalytic activity/Vol] 18 U/L 15-37 [facility] M100.678on 09-02-2024 M100.678 Copy of report sent to Infection Control Printer MS#[id number] 09/02/24 6893 BRIANDA. FLUABV+SARS-CoV-2+RSV Pnl Resp CORAL+probe FLUABV+SARS-CoV-2+RSV Pnl Resp CORAL+probe SARS-CoV-2 (COVID 19) A Positive A INFLUENZA A Negative INFLUENZA B Negative RSV PCR Negative SARS-CoV-2 (COVID 19 PCR) Normal [facility] Comment on above: Performed By: #### L 400.0001, M100.678 ####[facility] [id number] [place], [address] MR/POSTOP.ANE 09-02-2024 MR/POSTOP.[facility] Medical Records Department [address] [place] [address] Anesthesia Postop Eval I 09/02/24 1717 MR#: [id number] Acct: [id number] Name: MARIMAR WANG Rep #: [id number] : 1960 64 From: Stas Yuong MD PCP: [facility] Status:DIS AMOR Y Race: C [facility]esthesia: Postop Eval I Current Vital Signs Temperature: 98.1 F Pulse Rate: 80 Blood Pressure: 115/40 Respiratory Rate: 16 Pulse Ox: 98 Oxygen Delivery Method: Nasal Cannula Oxygen Flow Rate (L/min): 3 Assessment Airway patent: Yes Spontaneous unlabored respirations: Yes Mental status: Awake and Calm nausea: No Vomiting: No Anesthesia Complication: No Fluid Hydration Crystalloid volume administer (ml): 10 Total IV fluid infused: 10 Progress Note Anesthesia document: Postop Eval 1 completed: Yes 09/03/24 0039 Date Stas Young MD 11/30/24 1656 Cosigner Signature: Date DhirajLuke CRNA CC: Signed Normal [facility] Microscopic analysis of urin e for red blood cells (RBC)Ordered By: Sonia Germain on 09-02-2024 Microscopic analysis of urine for red blood cells (RBC) 0 SEEN /hpf 0-5 [facility] Urine RBC 0 SEEN /hpf 0-5 [facility] Mucus LM Ql (Urine sed)Order ed By: Sonia Germain on 09-02-2024 Mucus Ql (Urine sed) 0 SEEN /hpf [facility] Nitrite Test strip Ql (U)Ord ered By: Sonia Germain on 09-02-2024 Nitrite Ql (U) Negative Negative [facility] Operative Reporton Operative Report [facility] Medical Records Department [address] [place] [address] Operative Report 09/02/24 1723 MR#: [id number] Acct: [id number] Name: MARIMAR WANG Rep #: [id number] : 1960 64 From: Kenya Garcia MD PCP: [facility] Status:ADM AMOR Location: [place] [address] Problems Associated Problem List Diagnoses (1) Perirectal abscess: (2) Mass of anus: Multi Select Codes Digestive Digestive CPT Codes: 04450 Incision of rectal [place] [address] Anoscopy and biopsy Operative Report (Standard) Operative Information Date of Procedure: 09/02/24 Pre-Operative Diagnosis: Right-sided perirectal abscess Post-Operative Diagnosis: Suspect perianal mass with associated fluid collection/abscess Surgery/Procedure Performed: 1. Incision and drainage of perirectal abscess/fluid collection 2. Biopsy of perianal mass director of residence life: No Type of Anesthesia: Local and MAC RN Documented Start/Stop Times: Operation Date: 09/02/24 16:00 Case Time Into Pre-Op 09/02/24 15:15 Anesthesia Start 09/02/24 16:11 Into Room 09/02/24 16:11 Out of Pre-Op 09/02/24 16:15 Procedure Start 09/02/24 16:34 Procedure End 09/02/24 17:03 Anesthesia End 09/02/24 17:11 Out of Room 09/02/24 17:11 Into Recovery 09/02/24 17:13 Procedure Start Time: 16:34 Procedure Stop Time: 17:03 Select all DRAINS/GRAFTS/IMPLANTS that apply: Drains Drain details: 1 inch iodoform gauze; Gelfoam Estimated Blood Loss: 30 mL Specimen collected: Yes Description of specimen(s) removed: Biopsy of perianal mass Description of surgery: The patient is a 64-year-old female who presented earlier today to the [place] emergency department with complaints of perianal pain for about a week she was seen evaluate by the ER staff. CT scan was performed and a fluid collection was encountered with associated stranding. This was suspected initially to be an abscess. As result patient was recommended for surgical drainage/examination. Following informed consent, patient was brought to the operating room today. MAC anesthesia was induced. Once adequately anesthetized her legs were placed in a modified lithotomy position with appropriate padding and positioning. The perineum was then prepped and draped in the usual sterile manner. Prior to anesthesia she was very tender in the perianal area. Once prepped and draped I was able to more closely inspect the region. It was noted with closer examination that she appeared to have a perianal mass. This extended jail external to the anal verge and seemed to extend another 2 to 3 cm beyond the anal verge towards the rectum. The seem very hard. There was a very high suspicion for malignancy. As I injected local anesthetic in the region just superior to the perianal area on the right where I suspected the patient to have the fluid/abscess, some of the fluid was coming out of the perianal mass. A #11 blade was then used to make about a 1.5 cm incision. Upon doing so I encountered mostly bloody fluid. There was certainly a cavity in this vicinity no monica pus was appreciated. This was copiously irrigated. The skin edge was cauterized to ensure hemostasis. This wound was then packed with 1 inch iodoform gauze. Biopsy of the mass was performed by first injecting local anesthetic. An Allis clamp was then used to grasp a hard portion of the mass and then a #11 blade was then used to excise a segment of tissue. This tissue was very hard and fibrous/woody. This was sent to pathology for further examination. The area was cauterized to ensure hemostasis. Gelfoam packing was inserted. A total of 30 cc of local anesthetic were utilized during this procedure. This was injected both directly into the tissue as well as in a pudendal block manner. She was awakened anesthesia and taken to recovery in good condition Surgical Findings: 4-1/2 to 5 cm right sided perianal mass (suspect malignancy) Associated perirectal fluid collection/abscess Complications Complications: No Admit VTE Documentation VTE Present on Admission: No VTE Mechan Device Prophylaxis: SCD's VTE Pharm Prophylaxis ordered?: No Reason prophylaxis not ordered: Treatment Not Indicated 09/02/24 8595 Cosigner Signature (if applicable): CC: [facility]; Dr. Kenya Garcia MD Signed Normal [facility] Protein Test strip Ql (U)Ord ered By: Sonia Germain on 09-02-2024 Protein Ql (U) 30 mg/dl High Negative [facility] Serum globulin measurementOr dered By: Sonia Germain on 09-02-2024 Globulin (S) [Mass/Vol] 4.0 g/dL 2.2-4.2 [facility] Serum or plasma alanine alarcon otransferase (ALT) measurementOrdered By: Sonia Germain on 09-02-2024 ALT [Catalytic activity/Vol] 17 U/L 13-56 [facility] Serum or plasma albumin alexis urement (mass/volume)Ordered By: Sonia Germain on 09-02-2024 Albumin [Mass/Vol] 2.7 g/dL Low 3.2-5.0 [facility] Serum or plasma alkaline india sphatase measurementOrdered By: Soniaarlene Germain on 09-02-2024 ALP [Catalytic activity/Vol] 87 U/L 45-117 [facility] Squamous epithelial cells de tection in urine sediment by light microscopyOrdered By: Sonia Germain on 09-02-2024 Epithelial cells.squamous LM Ql (Urine sed) 0-5 SEEN /hpf 5-10 [facility] Surgery Specimen Level Nubia 09-02-2024 Surgery Specimen Level IV Patient Age/Sex Location Account Attending Physician MARIMAR WANG 64/F MS3 [id number] Dr. Kenya Garcia MD Specimen: [id number] Received: 09/02/24 Status: GEETHAMarin Aparicio Num: [id number] Spec Type: Mass Subm Dr: Dr. 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 See comment. SJ.mr 09/04/2024 COMMENT Immunohistochemistry ([id number]) for surrogate HPV marker (p16) will be performed, and results will be reported separately. MICROSCOPIC DESCRIPTION Slides are reviewed. GROSS DESCRIPTION Received in fixative is one container labeled with the patient's name and designated Perianal mass biopsy. The specimen consists of three irregular pieces of akhtar, pink focally congested tissue measuring in aggregate 2 x 2 x 1cm. Larger pieces are sectioned. The entire specimen is submitted in one cassette. SJ.mr 09/03/2024 TC:0 CPT:64903 Patient Age/Sex Location Account Attending Physician MARIMAR WANG 64/F MS3 [id number] Dr. Kenya Garcia MD Signed (signature on file) Dr. rFed Gonzales MD 09/04/24 1212 Normal [facility] Comment on above: Performed By: #### P SUIV ####[facility] [address] [place], [address] Total proteinOrdered By: Ariane Germain on 09-02-2024 Protein [Mass/Vol] 6.7 g/dL 6.4-8.2 [facility] Urate crystals LM.HPF (Urine sed) [#/Area]Ordered By: Snoia Germain on 09-02-2024 Urine Uric Acid Crystals 1+ /hpf [facility] Urinalysis, Completeon 09-02 URIC CRYSTALS 1+ /hpf Normal [facility] Comment on above: Order Comment: CLEAN CATCH Performed By: #### L 400.0001, M100.678 #### [facility] [address] [place], [address] CAST,HYALINE 0-5 SEEN Normal 0-5 [facility] Comment on above: Order Comment: CLEAN CATCH Performed By: #### L 400.0001, M100.678 #### [facility] [address] [place], [address] EPI,SQUAMOUS 0-5 SEEN Normal 5-10 [facility] Comment on above: Order Comment: CLEAN CATCH Performed By: #### L 400.0001, M100.678 #### [facility] [address] [place], [address] WBC 0-5 SEEN Normal 0-5 [facility] Comment on above: Order Comment: CLEAN CATCH Performed By: #### L 400.0001, M100.678 #### [facility] [address] [place], [address] BACTERIA 0 SEEN Normal None Seen [facility] Comment on above: Order Comment: CLEAN CATCH Performed By: #### L 400.0001, M100.678 #### [facility] [address] [place], [address] Mucus Ql (Urine sed) 0 SEEN Normal [facility] Comment on above: Order Comment: CLEAN CATCH Performed By: #### L 400.0001, M100.678 #### [facility] [address] [place], [address] RBC 0 SEEN Normal 0-5 [facility] Comment on above: Order Comment: CLEAN CATCH Performed By: #### L 400.0001, M100.678 #### [facility] [address] [place], [address] Urine blood detectionOrdered By: Sonia Germain on 09-02-2024 Urine Occult Blood Negative Negative [facility] Urine clarityOrdered By: Ariane Germain on 09-02-2024 Clarity (U) Clear Clear [facility] Urine color determinationOrd ered By: Sonia Germain on 09-02-2024 Color (U) Yellow Yellow [facility] Urine glucose detectionOrder ed By: Sonia Germain on 09-02-2024 Glucose Ql (U) Normal mg/dl Normal [facility] Urine leukocyte esterase det ection by dipstickOrdered By: Sonia Germain on 09-02-2024 Leukocyte esterase Test strip Ql (U) 25 /ul High Negative [facility] Urine pHOrdered By: Sonia corbett on 09-02-2024 pH (U) 6.0 [pH] 5.0 - 8.0 [facility] Urine sediment bacteria coun t by microscopy (number/high power field)Ordered By: Sonia Germain on 09-02-2024 Bacteria LM.HPF (Urine sed) [#/Area] 0 /[HPF] None Seen [facility] Urine sediment uric acid cry stal count by microscopy (number/high power field)Ordered By: Sonia Germain on 09-02-2024 Urate crystals LM.HPF (Urine sed) [#/Area] 1 /[HPF] [facility] Urine specific gravity measu rementOrdered By: Sonia Germain on 09-02-2024 Specific gravity (U) [Rel density] 1.015 1.002-1.030 [facility] Urine urobilinogen measureme ntOrdered By: Sonia Germain on 09-02-2024 Urobilinogen Ql (U) 1 mg/dl High Normal [facility] Urobilinogen Ql (U)Ordered B y: Sonia Germain on 09-02-2024 Urobilinogen (U) [Mass/Vol] 1 mg/dL High Normal [facility] White blood cell countOrdere d By: Sonia Germain on 09-02-2024 Urine WBC 0-5 SEEN /hpf 0-5 [facility] White blood cell count 0-5 SEEN /hpf 0-5 [facility] p16 (initial)on 09-02-2024 p16 (initial) ---- Patient Age/Sex Location Account Attending Physician MARIMAR WANG/Diane MS3 [id number] Dr. Kenya Garcia MD Specimen: [id number] Received: 09/04/24 Status: SAMREEN Aparicio Num: [id number] Spec Type: IMMUNO Subm Dr: Dr. Kenya Garcia MD [facility] [address] [address] SPECIMEN INFORMATION: Tissue Source: Perianal mass biopsy Clinical Info: Perirectal abscesses Specimen Number: [id number] CPT code: 89602,87869 METHODOLOGY: Deparaffinized sections of prefer/formalin-fixed tissue or PAP/DQ stained slides are incubated with monoclonal/polyclonal antibodies/oligonucleoti de probes. Localization is made via biotin free immunoperoxidase method. Appropriate controls are performed and reacted as expected. Results on target cell population are indicated in the following table: RESULTS: ANTIBODY / CLONE RESULT P16 (E6H4) positive, block staining Ki-67 (30-9) positive, high These tests were developed and their performance characteristics determined by [facility]. They may not have been cleared or approved by the U.S. Food and Drug Administration. The FDA has determined that such clearance or approval is not necessary. The above immunohistochemical/dual BRANDY markers are ordered and reviewed by the Pathologist. 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 09/07/2024 Signed (signature on file) Dr. Fred Gonzales MD 09/07/24 1146 Normal [facility] Comment on above: Performed By: #### L 100.0100, L500.2500 #### [facility] [address] [place] [address], [address] Gastroenterology Visit Repor ton 08-27-2024 Gastroenterology Visit Report [facility]astroenterology [address] [place] [address] OFFICE VISIT Date of Service: 08/27/24 MR#: [id number] Acct: [id number] Name: MARIMAR WANG Rep #: [id number] : 1960 Provider: Andrez Pitts DO Age/Sex: 64/F Location: [facility] Status: Signed Intake Vital Signs 03/20/24 12:59 06/06/24 01:53 Height 5 ft 3 in 5 ft 3 in Intake Visit Reasons: 4 M FU Chief Complaint: f/u diarrhea Allergies doxycycline calcium (From Vibramycin) Allergy (Verified 06/06/24 01:53) Anaphylaxis doxycycline hyclate (From Vibramycin) Allergy (Verified 06/06/24 01:53) Anaphylaxis doxycycline monohydrate (From Vibramycin) Allergy (Verified 06/06/24 01:53) Anaphylaxis NSAIDS (Non-Steroidal Anti-Inflamma Allergy (Verified 06/06/24 01:53) Anaphylaxis duloxetine (From Cymbalta) Adverse Reaction (Verified 06/06/24 01:53) HEADACHE AND UPSET STOMACH hydrocodone bitartrate (From Vicodin) Adverse Reaction (Verified 06/06/24 01:53) STOMACH UPSET hydromorphone HCl (From Dilaudid) Adverse Reaction (Verified 06/06/24 01:53) Vomiting morphine Adverse Reaction (Verified 06/06/24 01:53) Vomiting Medications ???Medication ???Instructions ???Recorded ???Confirmed ???Type albuterol sulfate 90 mcg/actuation 2 puff inhalation Q4H PRN PRN 08/27/24 History aerosol inhaler Shortness Of Breath clopidogrel 75 mg tablet 75 mg PO DAILY BLOOD THINNER 03/1308/27/24 History fluoxetine 20 mg capsule 60 mg PO QHS MENTAL HEALTH 6 08/27/24 History bupropion HCl 150 mg 24 hr tablet, 150 mg PO QHS MENTAL HEALTH 10/2708/27/24 History extended release peg 517-hnpraflmsvgc-sytjzpr n 1 1 drp OP 4X/DAY DRY EYES 11/13/17 08/27/24 History %-0.2 %-0.2 % eye drops (Dry Eye Relief) leflunomide 20 mg tablet (Arava) 20 mg PO DAILY RA 03/22/18 5 History amlodipine 5 mg tablet 7.5 mg PO DAILY BP 08/15/22 History mometasone 50 mcg/actuation nasal 2 spray intranasal DAILY ALLERGIE S 08/15/22 08/27/24 History spray ergocalciferol (vitamin D2) 1,250 1,250 mcg PO .EVERY OTHER WEEK 08/27/24 History mcg (50,000 unit) capsule (Vitamin SUPPELEMNT D2) mecobalamin (vitamin B12) 1,000 1,000 mcg sublingual DAILY 08/27/24 History mcg disintegrating SUPPLEMENT tablet,sublingual abatacept 50 mg/0.4 mL 50 mg subcut QMONTH RA 12/17/22 History subcutaneous syringe (Orencia) polyethylene glycol 3350 17 4 g PO PRN PRN Constipation 08/27/24 History gram/dose oral powder (Miralax) ecryya-wlzvcckq-isqvper See Rx Instructions PO .COMPLEX 08/27/24 Rx 36,000-114,000-180,000 unit #300 caps capsule,delay rel (Creon) acetaminophen 500 mg tablet 1,000 mg PO Q6H PRN fever or pain 11/15/23 08/27/24 History atorvastatin 80 mg tablet 80 mg PO QDAY 11/15/23 08/27/24 Hi story hydrocortisone 2.5 % topical cream 1 applic VA BID PRN Crohn's 05/0 10/1908/27/24 Rx with perineal applicator disease #30 grams lubiprostone 8 mcg capsule 8 mcg PO BID PRN for constipation 01/26/24 08/27/24 Rx #60 caps meclizine 25 mg tablet 25 mg PO DAILY PRN PRN dizziness 0 03/17/24 08/27/24 History budesonide 3 mg 6 mg (2 x 3 mg) PO DAILY #60 caps 04/09/24 08/27/24 Rx capsule,delayed,extended release pantoprazole 40 mg tablet,delayed 40 mg PO DAILY #90 TABLETS 08/27/24 Rx release promethazine 25 mg tablet 25 mg PO Q6H PRN PRN Nausea #60 08/27/24 Rx tabs alprazolam 1 mg tablet 1 mg PO TID 30 days #90 tabs 06/0108/27/24 Rx dicyclomine 10 mg capsule 10 mg PO TID PRN for abdominal 08/27/24 Rx pain #90 caps Have you fallen in the past year?: No PFSH Medical History History of Crohn's disease Psoriatic arthritis Psoriasis Internal derangement of right knee Wears glasses Post-menopausal Depression Anxiety Ambulates with cane Injury of back Difficulty swallowing History of IBS History of hiatal hernia Former smoker Shortness of breath on exertion Chronic cough History of echocardiogram History of stress test Hypertension Cardiology follow-up encounter History of CHF (congestive heart failure) History of irregular heartbeat Acute pharyngitis, unspecified URI (upper respiratory infection) Contact with or suspected exposure to other viral communicable disease History of partial replacement of left hip joint using bipolar prosthesis Vitamin D deficiency HLD (hyperlipidemia) Insomnia Dry eye Regular astigmatism, bilateral PVCs (premature ventricular contractions) Coronary artery stenosis Chronic diastolic CHF (congestive heart failure) Iron malabsorption Osteoarthritis Lumbar spondylosis Osteoporosis Con (more content not included)... Normal [facility] BD DXA - AXIAL SKELETONon BD DXA - AXIAL SKELETON Normal C [facility] CBC W Auto Differential pane l (Bld)on 08-20-2024 Basophils (Bld) [#/Vol] 0.10 10*3/uL Normal <0.11 [facility] Comment on above: Order Comment: Speci men Type: BLOOD SPECIMENOrdering Facility: [facility] Address: [address] [place] [address] Performed By: #### 5 7021-8 ####[facility] [id number] [place] [address] [place] Basophils/100 WBC (Bld) 1.1 % Normal C [facility] Comment on above: Order Comment: Speci men Type: BLOOD SPECIMENOrdering Facility: [facility] Address: [address] [place] [address] Performed By: #### 5 7021-8 ####[facility] [id number] [place] [address] [place] [facility] Differential cell count method Nom (Bld) Auto Normal [facility] Comment on above: Order Comment: Speci men Type: BLOOD SPECIMENOrdering Facility: [facility] Address: [address] [place] [address] Performed By: #### 5 7021-8 ####[facility] [id number] [place] [address] [place] Eosinophils (Bld) [#/Vol] 0.19 10*3/uL Normal <0.46 [facility] Comment on above: Order Comment: Speci men Type: BLOOD SPECIMENOrdering Facility: [facility] Address: [address] [place] [address] Performed By: #### 5 7021-8 ####[facility] [id number] [place] [address] [place] Eosinophils/100 WBC (Bld) 2.2 % Normal [facility] Comment on above: Order Comment: Speci men Type: BLOOD SPECIMENOrdering Facility: [facility] Address: [address] [place] [address] Performed By: #### 5 7021-8 ####[facility] [id number] [place] [address] [place] Erythrocyte distribution width (RBC) [Ratio] 18.5 % High 11.5-15.0 [facility] Comment on above: Order Comment: Speci men Type: BLOOD SPECIMENOrdering Facility: [facility] Address: [address] [place] [address] Performed By: #### 5 7021-8 ####[facility] [id number] [place] [address] [place] Hematocrit (Bld) [Volume fraction] 38.2 % Normal 36.0-46.0 [facility] Comment on above: Order Comment: Speci men Type: BLOOD SPECIMENOrdering Facility: [facility] Address: [address] [place] [address] Performed By: #### 5 7021-8 ####[facility] ALYSSAOCONTONICOLE [id number] [place] [address] [place] Hemoglobin (Bld) [Mass/Vol] 11.7 g/dL Normal 11.5-15.5 [facility] Comment on above: Order Comment: Speci men Type: BLOOD SPECIMENOrdering Facility: [facility] Address: [address] [place] [address] Performed By: #### 5 7021-8 ####[facility] [id number] [place] [address] [place] Immature granulocytes (Bld) [#/Vol] 0.04 10*3/uL Normal <0.10 [facility] Comment on above: Order Comment: Speci men Type: BLOOD SPECIMENOrdering Facility: [facility] Address: [address] [place] [address] Performed By: #### 5 7021-8 ####[facility] [id number] [place] [address] [place] Immature granulocytes/100 WBC (Bld) 0.5 % Normal [facility] Comment on above: Order Comment: Speci men Type: BLOOD SPECIMENOrdering Facility: [facility] Address: [address] [place] [address] Performed By: #### 5 7021-8 ####[facility] SE[facility]INGNCL[facility] [id number] [place] [address] [place] Lymphocytes (Bld) [#/Vol] 1.22 10*3/uL Normal 1.00-4.00 [facility] Comment on above: Order Comment: Speci men Type: BLOOD SPECIMENOrdering Facility: [facility] Address: [address] [place] [address] Performed By: #### 5 7021-8 ####[facility] [id number] [place] [address] [place] Lymphocytes/100 WBC (Bld) 13.9 % Normal [facility] Comment on above: Order Comment: Speci men Type: BLOOD SPECIMENOrdering Facility: [facility] Address: [address] [place] [address] Performed By: #### 5 7021-8 ####[facility] [id number] [place] [address] [place] MCH (RBC) [Entitic mass] 25.2 pg Low 26.0-34.0 [facility] Comment on above: Order Comment: Speci men Type: BLOOD SPECIMENOrdering Facility: [facility] Address: [address] [place] [address] Performed By: #### 5 7021-8 ####[facility] [id number] [place] [address] [place] MCHC (RBC) [Mass/Vol] 30.6 g/dL Normal 30.5-36.0 [facility] Comment on above: Order Comment: Speci men Type: BLOOD SPECIMENOrdering Facility: [facility] Address: [address] [place] [address] Performed By: #### 5 7021-8 ####[facility] [id number] [place] [address] [place] MCV (RBC) [Entitic vol] 82.2 fL Normal 80.0-100.0 C [facility] Comment on above: Order Comment: Speci men Type: BLOOD SPECIMENOrdering Facility: [facility] Address: [address] [place] [address] Performed By: #### 5 7021-8 ####[facility] MILLTOWNCLIA [id number] [place] [address] [place] Monocytes (Bld) [#/Vol] 0.84 10*3/uL Normal <0.87 [facility] Comment on above: Order Comment: Speci men Type: BLOOD SPECIMENOrdering Facility: [facility] Address: [address] [place] [address] Performed By: #### 5 7021-8 ####[facility] MILLTOWNCLIA [id number] [place] [address] [place] Monocytes/100 WBC (Bld) 9.6 % Normal [facility] Comment on above: Order Comment: Speci men Type: BLOOD SPECIMENOrdering Facility: [facility] Address: [address] [place] [address] Performed By: #### 5 7021-8 ####[facility] H[facility]PITALWNCLIA [id number] [place] [address] [place] Neutrophils (Bld) [#/Vol] 6.37 10*3/uL Normal 1.45-7.50 [facility] Comment on above: Order Comment: Speci men Type: BLOOD SPECIMENOrdering Facility: [facility] Address: [address] [place] [address] Performed By: #### 5 7021-8 ####[facility] MILLTOWNCLIA [id number] [place] [address] [place] Neutrophils/100 WBC (Bld) 72.7 % Normal [facility] Comment on above: Order Comment: Speci men Type: BLOOD SPECIMENOrdering Facility: [facility] Address: [address] [place] [address] Performed By: #### 5 7021-8 ####[facility] MILLTOWNCLIA [id number] [place] [address] [place] Nucleated RBC (Bld) [#/Vol] 10*3/uL Normal <0.01 [facility] Comment on above: Order Comment: Speci men Type: BLOOD SPECIMENOrdering Facility: [facility] Address: [address] [place] [address] Performed By: #### 5 7021-8 ####[facility] ALYSSAOCONTOZEVLIA [id number] [place] [address] [place] Nucleated RBC/100 WBC (Bld) [Ratio] 0.0 /100 WBC Normal [facility] Comment on above: Order Comment: Speci men Type: BLOOD SPECIMENOrdering Facility: [facility] Address: [address] [place] [address] Performed By: #### 5 7021-8 ####[facility] SEBRINGNCFroy [id number] [place] [address] [place] Platelet mean volume (Bld) [Entitic vol] 10.9 fL Normal 9.0-12.7 [facility] Comment on above: Order Comment: Speci men Type: BLOOD SPECIMENOrdering Facility: [facility] Address: [address] [place] [address] Performed By: #### 5 7021-8 ####[facility] SEBRINGNCTIFFANIA [id number] [place] [address] [place] Platelets (Bld) [#/Vol] 263 10*3/uL Normal 150-400 [facility] Comment on above: Order Comment: Speci men Type: BLOOD SPECIMENOrdering Facility: [facility] Address: [address] [place] [address] Performed By: #### 5 7021-8 ####[facility]INGNCL[facility] [id number] [place] [address] [place] RBC (Bld) [#/Vol] 4.65 10*6/uL Normal 3.90-5.20 [facility] Comment on above: Order Comment: Speci men Type: BLOOD SPECIMENOrdering Facility: [facility] Address: [address] [place] [address] Performed By: #### 5 7021-8 ####[facility] SEBRINGNCA [id number] [place] [address] [place] WBC (Bld) [#/Vol] 8.76 10*3/uL Normal 3.70-11.00 [facility] Comment on above: Order Comment: Speci men Type: BLOOD SPECIMENOrdering Facility: [facility] Address: [address] [place] [address] Performed By: #### 5 7021-8 ####[facility] [id number] [place] [address] [place] Ferritin SerPl-ncon 2024 Ferritin [Mass/Vol] 117.0 ng/mL Normal 14.7-205.1 [facility] Comment on above: Order Comment: Speci men Type: BLOOD SPECIMENOrdering Facility: [facility] Address: [address] [place] [address] Performed By: #### 5 0190-8, 2276-4 ####[facility] LABCLIA [id number] [place] [address] [place] Iron and Iron binding capaci ty panelon 08-20-2024 Iron [Mass/Vol] 21 ug/dL Low 41-186 [facility] Comment on above: Order Comment: Speci men Type: BLOOD SPECIMENOrdering Facility: [facility] Address: [address] [place] [address] Performed By: #### 5 0190-8, 2276-4 ####[facility] LABCLIA [id number] [place] [address] [place] Iron binding capacity [Mass/Vol] 281 ug/dL Normal 232-386 [facility] Comment on above: Order Comment: Speci men Type: BLOOD SPECIMENOrdering Facility: [facility] Address: [address] [place], [place] [address] [address] Performed By: #### 5 0190-8, 2275-4 ####[facility] LABCLIA [id number] [place] [address] [place] Iron/TIBC [Molar ratio] 7.5 % Low 15.0-57.0 C [facility] Comment on above: Order Comment: Speci men Type: BLOOD SPECIMENOrdering Facility: [facility] Address: [address] [place], [place] [address] [address] Performed By: #### 5 0190-8, 4 ####[facility] LABCLIA [id number] [place] [address] [place] CNPNon 08-17-2024 CNPN Normal [facility] RPR [CCL]on 06-30-2024 Reagin Ab RPR Ql (S) Non-Reactive Normal Nonreactive J [facility] Comment on above: Result Comment: Rapi d plasma reagin (RPR) test detects non-treponemal antibodies. RPR may be reactive in a variety of infectious and non-infectious conditions. Correlation with clinical picture and with treponemal antibody results is required for final interpretation. [address] [place] [address] Bladimir Jean-Baptiste III, M.D. [id number] Performed By: #### 2 11317 #### [facility],[address] [place] [address] FOLATESon 06-29-2024 FOLATES 8.7 ng/ml Normal 8.6 - 58.9 [facility] Comment on above: Performed By: #### 2 58065 #### [facility],[address] [place] [address] RPR Ser Qlon 06-29-2024 Reagin Ab RPR Ql (S) Non-Reactive Normal Nonreactive C [facility] Comment on above: Order Comment: Mindy mcfarlane Type: BLOOD SPECIMENOrdering Facility: [facility] Address: [address], [place] [address] Result Comment: Rapi d plasma reagin (RPR) test detects non-treponemal antibodies. RPR may be reactive in a variety of infectious and non-infectious conditions. Correlation with clinical picture and with treponemal antibody results is required for final interpretation. Performed By: #### 2 0507-0 ####[facility] LABCLIA [id number] [place] [id number] [facility] Jeremy 06-16-2024 CNPN Telephone (RHBATH) -------- MARIMAR WANG ([id number]) 1960 F Date Time Provider Department 06/16/24 JENNIFER ARIAS RHBATH During your visit today, we recorded the following information about you: Rosio Buck LPN 06/16/2024 12:37 PM Signed Patient asking if she can have her Orencia infusions at [facility]. Patient does not drive in the snow and she will also be going there for iron infusions. Patient is going to contact the infusion center and see if they will be able to administer Orencia and call the office back. CLIVE Levi Melissa 06/16/2024 1:32 PM Addendum Please review orders and advise. Providers office states that patient would start here in June. Lawanda Hunter 06/16/2024 2:20 PM Signed Pharmacist on duty spoke with PSS about an hour ago re: scheduling patient here for Orencia and Iron, that we could get the Orencia in time for if that worked for the patient and that the authorization/orders could be flipped to [place] and there shouldn't be an issue with the authorization. Patient was agreeable to having all treatments in [place]. Spoke with patient and she does want to have treatments here. Advised that her authorization for [place] is no longer open/available and that she will be treated in [place] as she has requested. Patient will reschedule balance of iron infusions when she comes in for her treatment on 06/18. Rosio Nails LPN 06/22/2024 2:26 PM Signed FYI, no further action needed. Infusions completed at [facility] as scheduled on 06/18/2024. Rosio Buck LPN Allergies As of Date: 06/16/2024 Noted Allergy Reaction CYMBALTA (DULOXETINE) 11/21/2023 5 - Intolerance Comments: Headaches NSAIDS (NON-STEROIDAL ANTI-INFLAM*04/16/2005 10 - Anaphylaxis Comments: Had anaphylactic reaction to Aleve VIBRAMYCIN (DOXYCYCLINE CALCIUM) 04/16/2005 10 - Anaphylaxis DILAUDID (HYDROMORPHONE (BULK)) 11/21/2023 11 - Vomiting MORPHINE 11/21/2023 11 - Vomiting HORSE/EQUINE CONTAINING PRODUCTS 11/28/2023 7 - Swelling VICODIN (HYDROCODONE-ACETAMINOPH E*11/21/2023 11 - Vomiting Comments: Can take if given antiemetic at same time Date Reviewed: 06/15/2024 Reviewed by: Bassam Machuca MA - Fully Assessed Reason for Visit: Patient Question [1477] Prescriptions as of 06/22/2024 - leflunomide (ARAVA) 20 mg tablet Take 1 tablet by mouth once daily - Fluticasone Propionate (CUTIVATE) 0.05 % cream Apply to affected area two times a day. - meclizine (ANTIVERT) 25 mg tab Take 25 mg by mouth three times a day as needed (for dizziness). - cholecalciferol, Vitamin D3, (VITAMIN D3) 1,250 mcg (50,000 unit) cap capsule Take 1 capsule by mouth every other week. - atorvastatin (LIPITOR) 80 mg tablet Take 80 mg by mouth once daily. - ddlyba-ndnahxuy-dhgsdhl (CREON 36) 36,000-114,000- 180,000 unit delayed release capsule Take by mouth with meals and at bedtime. With snacks also - furosemide (LASIX) 20 mg tablet Take 20 mg by mouth once daily. - budesonide, enteric coated (ENTOCORT EC) 3 mg 24 hr capsule Take 2 capsules by mouth every afternoon. - pantoprazole DR (PROTONIX) 40 mg tablet Take 40 mg by mouth once daily. - dicyclomine (BENTYL) 20 mg tablet Take 20 mg by mouth twice daily. - VITAMIN B-12 1,000 mcg tab DISSOLVE 1 TABLET BY MOUTH ONCE DAILY - amLODIPine (NORVASC) 5 mg tablet Take 7.5 mg by mouth once daily. Takes 7.5 mg each day - promethazine (PHENERGAN) 25 mg tablet Take 1 tablet by mouth every 6 hours as needed for nausea/vomiting. - clopidogrel (PLAVIX) 75 mg tablet Take 75 mg by mouth once daily. - FLUoxetine (PROZAC) 20 mg capsule Take 3 capsules by mouth once daily. - abatacept/maltose (ORENCIA, WITH MALTOSE, INTRAVENOUS) Inject intravenously. - albuterol HFA (VENTOLIN HFA) 90 mcg/actuation inhaler Inhale 2 Puffs as instructed every 4 hours as needed for wheezing/shortness of breath. - buPROPion XL (WELLBUTRIN XL) 150 mg 24 hr tablet Take 1 tablet by mouth once daily. - mometasone (NASONEX) 50 mcg/actuation nasal spray Use 2 Sprays in the nose once daily. Rinse mouth after use. - albuterol (PROVENTIL) 2.5 mg /3 mL (0.083 %) nebulizer solution Use 3 mL via nebulizer every 4 hours as needed for wheezing/shortness of breath. Use over 5-15minutes. - acetaminophen (TYLENOL) 325 mg tablet Take by mouth every 6 hours as needed. - albuterol (PROVENTIL) 2.5 mg /3 mL (0.083 %) nebulizer solution Use 3 mL via nebulizer every 6 hours as needed for Wheezing/Shortness of Breath. - >Nebulizer For Home Nebulizer for home use. Diagnosis: Moderate persistent asthma with acute exacerbation and pneumonia Meds Comments as of 02/06/2017: Herlnida use pharmacy [facility] [place] [address] Problem List As Of Date 06/16/2024 Noted Resolved Fractur (more content not included)... Normal [facility] CNPN Normal [facility] CBC W Auto Differential pane l (Bld)on 06-15-2024 Basophils (Bld) [#/Vol] 0.10 10*3/uL [facility] Basophils/100 WBC (Bld) 1.3 % C [facility] Differential cell count method Nom (Bld) Auto [facility] Eosinophils (Bld) [#/Vol] 0.16 10*3/uL [facility] Eosinophils/100 WBC (Bld) 2.1 % [facility] Erythrocyte distribution width (RBC) [Ratio] 16.7 % High 11.5 - 15.0 % [facility] Hematocrit (Bld) [Volume fraction] 32.8 % Low 36.0 - 46.0 % [facility] Hemoglobin (Bld) [Mass/Vol] 9.9 g/dL Low 11.5 - 15.5 g/dL [facility] Immature granulocytes (Bld) [#/Vol] [facility] Immature granulocytes/100 WBC (Bld) 0.3 % [facility] Interpretation and review of laboratory results Abnormal [facility] Lymphocytes (Bld) [#/Vol] 1.53 10*3/uL [facility] Lymphocytes/100 WBC (Bld) 20.0 % [facility] MCH (RBC) [Entitic mass] 23.8 pg Low 26.0 - 34.0 pg [facility] MCHC (RBC) [Mass/Vol] 30.2 g/dL Low 30.5 - 36.0 g/dL [facility] MCV (RBC) [Entitic vol] 78.8 fL Low 80.0 - 100.0 fL [facility] Monocytes (Bld) [#/Vol] 0.65 10*3/uL [facility] Monocytes/100 WBC (Bld) 8.5 % C [facility] Neutrophils (Bld) [#/Vol] 5.19 10*3/uL [facility] Neutrophils/100 WBC (Bld) 67.8 % [facility] Nucleated RBC (Bld) [#/Vol] [facility] Nucleated RBC/100 WBC (Bld) [Ratio] 0.0 % /100 WBC [facility] Platelet mean volume (Bld) [Entitic vol] 11.4 fL 9.0 - 12.7 fL [facility] Platelets (Bld) [#/Vol] 248 10*3/uL [facility] RBC (Bld) [#/Vol] 4.16 10*6/uL 3.90 - 5.2 0 m/uL [facility] WBC (Bld) [#/Vol] 7.65 10*3/uL [facility] Basophils (Bld) [#/Vol] 0.10 10*3/uL Normal <0.11 [facility] Comment on above: Order Comment: Speci men Type: BLOOD SPECIMENOrdering Facility: [facility] Address: [address] [place] [address] Performed By: #### 5 7021-8 ####[facility] CENTERLIA [id number] [place] [address] [place] Basophils/100 WBC (Bld) 1.3 % Normal C [facility] Comment on above: Order Comment: Speci men Type: BLOOD SPECIMENOrdering Facility: [facility] Address: [address] [place] [address] Performed By: #### 5 7021-8 ####[facility] CENTERLIA [id number] [place] [address] [place] Differential cell count method Nom (Bld) Auto Normal [facility] Comment on above: Order Comment: Speci men Type: BLOOD SPECIMENOrdering Facility: [facility] Address: [address] [place] [address] Performed By: #### 5 7021-8 ####[facility] MILLWNCLIA [id number] [place] [address] [place] Eosinophils (Bld) [#/Vol] 0.16 10*3/uL Normal <0.46 [facility] Comment on above: Order Comment: Speci men Type: BLOOD SPECIMENOrdering Facility: [facility] Address: [address] [place] [address] Performed By: #### 5 7021-8 ####[facility]INGNCLIA [id number] [place] [address] [place] Eosinophils/100 WBC (Bld) 2.1 % Normal [facility] Comment on above: Order Comment: Speci men Type: BLOOD SPECIMENOrdering Facility: [facility] Address: [address] [place] [address] Performed By: #### 5 7021-8 ####[facility] [id number] [place] [address] [place] Erythrocyte distribution width (RBC) [Ratio] 16.7 % High 11.5-15.0 [facility] Comment on above: Order Comment: Speci men Type: BLOOD SPECIMENOrdering Facility: [facility] Address: [address] [place] [address] Performed By: #### 5 7021-8 ####[facility] [id number] [place] [address] [place] Hematocrit (Bld) [Volume fraction] 32.8 % Low 36.0-46.0 [facility] Comment on above: Order Comment: Speci men Type: BLOOD SPECIMENOrdering Facility: [facility] Address: [address] [place] [address] Performed By: #### 5 7021-8 ####[facility] SEBRINGNCLIA [id number] [place] [address] [place] Hemoglobin (Bld) [Mass/Vol] 9.9 g/dL Low 11.5-15.5 [facility] Comment on above: Order Comment: Speci men Type: BLOOD SPECIMENOrdering Facility: [facility] Address: [address] [place] [address] Performed By: #### 5 7021-8 ####[facility] SEBRINGNCLI [id number] [place] [address] [place] Immature granulocytes (Bld) [#/Vol] 10*3/uL Normal <0.10 [facility] Comment on above: Order Comment: Speci men Type: BLOOD SPECIMENOrdering Facility: [facility] Address: [address] [place] [address] Performed By: #### 5 7021-8 ####[facility] ALYSSAJAZMYN [id number] [place] [address] [place] Immature granulocytes/100 WBC (Bld) 0.3 % Normal [facility] Comment on above: Order Comment: Speci men Type: BLOOD SPECIMENOrdering Facility: [facility] Address: [address] [place] [address] Performed By: #### 5 7021-8 ####[facility]ZEV[facility] [id number] [place] [address] [place] Lymphocytes (Bld) [#/Vol] 1.53 10*3/uL Normal 1.00-4.00 [facility] Comment on above: Order Comment: Speci men Type: BLOOD SPECIMENOrdering Facility: [facility] Address: [address] [place] [address] Performed By: #### 5 7021-8 ####[facility] [id number] [place] [address] [place] Lymphocytes/100 WBC (Bld) 20.0 % Normal [facility] Comment on above: Order Comment: Speci men Type: BLOOD SPECIMENOrdering Facility: [facility] Address: [address] [place] [address] Performed By: #### 5 7021-8 ####[facility] CENTERLI [id number] [place] [address] [place] MCH (RBC) [Entitic mass] 23.8 pg Low 26.0-34.0 [facility] Comment on above: Order Comment: Speci men Type: BLOOD SPECIMENOrdering Facility: [facility] Address: [address] [place] [address] Performed By: #### 5 7021-8 ####[facility] SEBRINGNCLIA [id number] [place] [address] [place] MCHC (RBC) [Mass/Vol] 30.2 g/dL Low 30.5-36.0 [facility] Comment on above: Order Comment: Speci men Type: BLOOD SPECIMENOrdering Facility: [facility] Address: [address] [place] [address] Performed By: #### 5 7021-8 ####[facility]IMME[facility] [id number] [place] [address] [place] MCV (RBC) [Entitic vol] 78.8 fL Low 80.0-100.0 C [facility] Comment on above: Order Comment: Speci men Type: BLOOD SPECIMENOrdering Facility: [facility] Address: [address] [place] [address] Performed By: #### 5 7021-8 ####[facility] [id number] [place] [address] [place] Monocytes (Bld) [#/Vol] 0.65 10*3/uL Normal <0.87 [facility] Comment on above: Order Comment: Speci men Type: BLOOD SPECIMENOrdering Facility: [facility] Address: [address] [place] [address] Performed By: #### 5 7021-8 ####[facility] [id number] [place] [address] [place] Monocytes/100 WBC (Bld) 8.5 % Normal C [facility] Comment on above: Order Comment: Speci men Type: BLOOD SPECIMENOrdering Facility: [facility] Address: [address] [place] [address] Performed By: #### 5 7021-8 ####[facility] SEBRINGNCLIA [id number] [place] [address] [place] Neutrophils (Bld) [#/Vol] 5.19 10*3/uL Normal 1.45-7.50 [facility] Comment on above: Order Comment: Speci men Type: BLOOD SPECIMENOrdering Facility: [facility] Address: [address] [place] [address] Performed By: #### 5 7021-8 ####[facility] [id number] [place] [address] [place] Neutrophils/100 WBC (Bld) 67.8 % Normal [facility] Comment on above: Order Comment: Speci men Type: BLOOD SPECIMENOrdering Facility: [facility] Address: [address] [place] [address] Performed By: #### 5 7021-8 ####[facility] [id number] [place] [address] [place] Nucleated RBC (Bld) [#/Vol] 10*3/uL Normal <0.01 [facility] Comment on above: Order Comment: Speci men Type: BLOOD SPECIMENOrdering Facility: [facility] Address: [address] [place] [address] Performed By: #### 5 7021-8 ####[facility] [id number] [place] [address] [place] Nucleated RBC/100 WBC (Bld) [Ratio] 0.0 /100 WBC Normal [facility] Comment on above: Order Comment: Speci men Type: BLOOD SPECIMENOrdering Facility: [facility] Address: [address] [place] [address] Performed By: #### 5 7021-8 ####[facility] [id number] [place] [address] [place] Platelet mean volume (Bld) [Entitic vol] 11.4 fL Normal 9.0-12.7 [facility] Comment on above: Order Comment: Speci men Type: BLOOD SPECIMENOrdering Facility: [facility] Address: [address] [place] [address] Performed By: #### 5 7021-8 ####[facility] NABILNCTIFFANIA [id number] [place] [address] [place] Platelets (Bld) [#/Vol] 248 10*3/uL Normal 150-400 [facility] Comment on above: Order Comment: Speci men Type: BLOOD SPECIMENOrdering Facility: [facility] Address: [address] [place] [address] Performed By: #### 5 7021-8 ####[facility] ALYSSAOCONTONCLIFroy [id number] [place] [address] [place] RBC (Bld) [#/Vol] 4.16 10*6/uL Normal 3.90-5.20 [facility] Comment on above: Order Comment: Speci men Type: BLOOD SPECIMENOrdering Facility: [facility] Address: [address] [place] [address] Performed By: #### 5 7021-8 ####[facility] ALYSSAOCONTOHAMLETA [id number] [place] [address] [place] WBC (Bld) [#/Vol] 7.65 10*3/uL Normal 3.70-11.00 [facility] Comment on above: Order Comment: Speci men Type: BLOOD SPECIMENOrdering Facility: [facility] Address: [address] [place] [address] Performed By: #### 5 7021-8 ####[facility] [id number] [place] [address] [place] CNOVSPon 06-15-2024 CNOVSP Normal [facility] Ferritin SerPl-mCncon 2023 Ferritin [Mass/Vol] 20.9 ng/mL Normal 14.7-205.1 [facility] Comment on above: Order Comment: Speci men Type: BLOOD SPECIMENOrdering Facility: [facility] Address: [address] [place] [address] Performed By: #### 5 0190-8, 2275-4 ####[facility] LABCLIA [id number] [place] [address] [place] Iron and Iron binding capaci ty panelon 06-15-2024 Iron [Mass/Vol] 19 ug/dL Low 41-186 [facility] Comment on above: Order Comment: Speci men Type: BLOOD SPECIMENOrdering Facility: [facility] Address: [address] [place] [address] Performed By: #### 5 0190-8, 2275- ####[facility] LABCLIA [id number] [place] [address] [place] Iron binding capacity [Mass/Vol] 372 ug/dL Normal 232-386 [facility] Comment on above: Order Comment: Speci men Type: BLOOD SPECIMENOrdering Facility: [facility] Address: [address] [place] [address] Performed By: #### 5 0190-8, 2275-10 ####[facility] LABCLIA [id number] [place] [address] [place] Iron/TIBC [Molar ratio] 5.1 % Low 15.0-57.0 C [facility] Comment on above: Order Comment: Speci men Type: BLOOD SPECIMENOrdering Facility: [facility] Address: [address] [place] [address] Performed By: #### 5 0190-8, 2275-10 ####[facility] LABCLIA [id number] [place] [address] [place] Chest PA and Lateralon 06-09 Chest PA and Lateral [facility] Imaging Services [address], [place] [id number] Chest PA and Lateral MR#: [id number] Acct: [id number] Name: MARIMAR WANG Rep #: [id number] : 1960 F 64 From: Edgard Flores DO PCP: SINAI Arriola Status: REG CLI Study: Chest PA and Lateral Date of Exam: 06/09/24 Exam# [id number] Ordering Dr: Julio Arriaga NP 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 -C [id number] INDICATION: ABNORMAL CHEST XRAY EXAMINATION/TECHNIQUE: X-RAY - XR Chest 2 Views COMPARISON: FINDINGS: LINES/DEVICES: None. LUNGS: No consolidation, edema or effusion. No pneumothorax. MEDIASTINUM AND CARDIOVASCULAR STRUCTURES: Cardiac silhouette not enlarged. Central airways and mediastinal contour are unremarkable. BONES AND SOFT TISSUES: Degenerative vertebral changes. RAD/Chest PA and Lateral IMPRESSION: No radiographic evidence of acute cardiopulmonary disease. Electronically Signed: Edgard Flores DO at 10:50 EST Reading Location ID and State: [facility] / [place] Tel [phone], Service support , CC: 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-C Julio Arriaga Bike Mechanic: Signed Normal [facility] Brain/Head without Contrast n 06-06-2024 Brain/Head without Contrast [facility] Imaging Services [address] [place] [address] Brain/Head without Contrast MR#: [id number] Acct: [id number] Name: MARIMAR WANG Rep #: [id number] : 1960 F 64 From: Gaudencio Riggs MD PCP: [facility] Arriola Status: REG ER Study: Brain/Head without Contrast Date of Exam: 04/21 Exam# [id number] Ordering Dr: Gaudencio Ambriz DO [id number] EXAM: CT HEAD WITHOUT INTRAVENOUS CONTRAST CLINICAL INDICATION: head injury TECHNIQUE: Multiple axial images were obtained of the head without intravenous contrast. CTDIvol = ( 44.99 ) mGy, DLP = ( 812.98 ) mGycm This CT exam was performed using one or more of the following dose reduction techniques: automated exposure control, adjustment of the mA and/or kV according to patient size, and/or use of iterative reconstruction technique. COMPARISON: No relevant prior studies available. FINDINGS: BRAIN AND EXTRA-AXIAL SPACES: Unremarkable. No intra- or extra-axial hemorrhage. No evidence of acute infarct. No intracranial mass or mass effect. There is preservation of the mendez/white matter interface. Posterior fossa structures are unremarkable. Ventricles are appropriate for age. No hydrocephalus. Basal cisterns are patent. BONES/JOINTS: Unremarkable. No discrete lytic or blastic abnormalities. SINUSES: Unremarkable as visualized. Clear. MASTOID AIR CELLS: Unremarkable. Clear. ORBITS: Visualized globes, extraocular muscles, optic nerves and retrobulbar fat appear unremarkable. CT/Brain/Head without Contrast IMPRESSION: Negative head/brain CT without intravenous contrast. AIDOC was utilized to assist in identifying pertinent positive findings. Electronically Signed: Gaudencio Riggs MD at 4:15 EST Reading Location ID and State: [facility] / [place] Tel , Service support , CC: [facility] Arriaga; Gaudencio Ambriz DO Bike Mechanic: Signed Normal [facility] Emergency Department Summary on 06-06-2024 Emergency Department Summary [facility] Medical Records Department [address] [place] [address] Emergency Department Summary 06/06/24 MR#: [id number] Acct: [id number] Name: MARIMAR WANG Rep #: [id number] : 1960 64 From: Gaudencio Ambriz DO PCP: [facility] Arriola Status:REG ER Location: ED HPI History of Present Illness Chief Complaint: Fall Informant: patient and family Narrative Narrative: The patient is a 64-year-old female with past medical history of COPD anxiety depression Crohn's disease and psoriasis. She is currently on Plavix. She also states she takes Xanax at night to help with anxiety and sleep. This evening she awoke to use the bathroom and felt like she was going to have an accident and therefore was rushing to the bathroom. She states while doing this she lost her balance and fell. She put out her left hand to help brace herself from the fall and injured her little finger. She states she also struck her head but denies any LOC. Her daughter was present and witnessed the fall and confirms no LOC. The daughter was able to help the patient up and she was able to ambulate with a steady gait with her cane as she normally does. However she has been having headache as well as hand pain and hip pain and with concern for underlying trauma was brought in for evaluation [facility] Medical History History of Crohn's disease Psoriatic arthritis Psoriasis Internal derangement of right knee Wears glasses Post-menopausal Depression Anxiety Ambulates with cane Injury of back Difficulty swallowing History of IBS History of hiatal hernia Former smoker Shortness of breath on exertion Chronic cough History of echocardiogram History of stress test Hypertension Cardiology follow-up encounter History of CHF (congestive heart failure) History of irregular heartbeat Acute pharyngitis, unspecified URI (upper respiratory infection) Contact with or suspected exposure to other viral communicable disease History of partial replacement of left hip joint using bipolar prosthesis Vitamin D deficiency HLD (hyperlipidemia) Insomnia Dry eye Regular astigmatism, bilateral PVCs (premature ventricular contractions) Coronary artery stenosis Chronic diastolic CHF (congestive heart failure) Iron malabsorption Osteoarthritis Lumbar spondylosis Osteoporosis Congenital cataract Intermittent palpitations Nausea TIA (transient ischemic attack) Acute maxillary sinusitis, unspecified Acute ethmoidal sinusitis, unspecified Acute frontal sinusitis, unspecified COPD exacerbation Foreign body in conjunctival sac, left eye, initial encounter Acute bacterial conjunctivitis Influenza A Acute bronchitis Back pain Limb weakness Asthma Anemia Arthritis Home Medications ???Medication ???Instructions ???Recorded ???Last Taken ???Type albuterol sulfate 90 mcg/actuation 2 puff inhalation Q4H PRN PRN 03/13/15 Unknown History aerosol inhaler Shortness Of Breath clopidogrel 75 mg tablet 75 mg PO DAILY BLOOD THINNER 03/13/15 03/15/24 History fluoxetine 20 mg capsule 60 mg PO QHS MENTAL HEALTH 12/13/15 03/19/24 History bupropion HCl 150 mg 24 hr tablet, 150 mg PO QHS MENTAL HEALTH 11/13/17 03/19/24 History extended release peg 102-fljqiqairqvh-wxgllbq n 1 1 drp OP 4X/DAY DRY EYES 11/13/17 03/19/24 History %-0.2 %-0.2 % eye drops (Dry Eye Relief) leflunomide 20 mg tablet (Arava) 20 mg PO DAILY RA 03/22/18 03/19/24 History amlodipine 5 mg tablet 7.5 mg PO DAILY BP 08/15/22 03/20/24 History mometasone 50 mcg/actuation nasal 2 spray intranasal DAILY ALLERGIES 08/15/22 03/19/24 History spray ergocalciferol (vitamin D2) 1,250 1,250 mcg PO .EVERY OTHER WEEK 11/05/22 Unknown History mcg (50,000 unit) capsule (Vitamin SUPPELEMNT D2) mecobalamin (vitamin B12) 1,000 1,000 mcg sublingual DAILY 12/06/22 03/19/24 History mcg disintegrating SUPPLEMENT tablet,sublingual abatacept 50 mg/0.4 mL 50 mg subcut QMONTH RA 12/17/22 Unknown History subcutaneous syringe (Orencia) polyethylene glycol 3350 17 4 g PO PRN PRN Constipation 01/09/23 Unknown History gram/dose oral powder (Miralax) zjxiqh-sizpyyrh-flneakd See Rx Instructions PO .COMPLEX 09/25/23 03/19/24 Rx 36,000-114,000-180,000 unit #300 caps capsule,delay rel (Creon) acetaminophen 500 mg tablet 1,000 mg PO Q6H PRN fever or pain 11/15/23 Unknown History atorvastatin 80 mg tablet 80 mg PO QDAY 11/15/23 Unknown History hydrocortisone 2.5 % topical cream 1 applic VA BID PRN Crohn's 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 Normal [facility] HIP, UNI W/ Pelvis 2-3 Views on 06-06-2024 HIP, UNI W/ Pelvis 2-3 Views [facility] Imaging Services [address] [place] [place] [id number] HIP, UNI W/ Pelvis 2-3 Views MR#: [id number] Acct: [id number] Name: MARIMAR WANG Rep #: [id number] : 1960 F 64 From: Gaudencio Riggs MD PCP: [facility] Arriola Status: REG ER Study: HIP, UNI W/ Pelvis 2-3 Views Date of Exam: 04/21 Exam# [id number] Ordering Dr: Gaudencio Ambriz DO [id number] EXAM: XR LEFT HIP WITH PELVIS WHEN PERFORMED, 2 OR 3 VIEWS CLINICAL INDICATION: pain TECHNIQUE: Two or three views of the left hip with pelvis when performed. COMPARISON: No relevant prior studies available. FINDINGS: BONES/JOINTS: Degenerative changes of the SI joints and lower lumbar spine. Left hip arthroplasty identified with satisfactory alignment and no complications. No displaced fracture. No destructive or sclerotic lesions. Note that overlapping bowel shadows may however obscure fine detail. No widening of the pubic symphysis. SOFT TISSUES: Unremarkable. No soft tissue swelling or gas. VASCULATURE: Atherosclerotic calcifications in the groin regions and pelvis. RAD/HIP, UNI W/ Pelvis 2-3 Views IMPRESSION: No acute or healing fracture or malalignment. No complications associated with left hip arthroplasty. Electronically Signed: Gaudencio Riggs MD at 3:52 EST , CC: [facility] Arriaga; Gaudencio Ambriz DO Bike Mechanic: Signed Normal [facility] Hand Min 3 Viewson 4 Hand Min 3 Views [facility] Imaging Services [address] [place] [address] Hand Min 3 Views MR#: [id number] Acct: [id number] Name: MARIMAR WANG Rep #: [id number] : 1960 F 64 From: Gaudencio Riggs MD PCP: [facility] Arriola Status: REG ER Study: Hand Min 3 Views Date of Exam: 06/06/24 Exam# [id number] Ordering Dr: Gaudencio Ambriz DO [id number] EXAM: XR LEFT HAND COMPLETE, 3 OR MORE VIEWS CLINICAL INDICATION: pain TECHNIQUE: Frontal, lateral and oblique views of the left hand. COMPARISON: No relevant prior studies available. FINDINGS: BONES/JOINTS: Moderate degenerative changes involving the proximal and distal interphalangeal joints as well as the triscaphe joint and first metacarpophalangeal joint. Ulnar minus deformity without complication. Intraosseous is suspected at the radial aspect of the lunate. No acute or healing fracture or malalignment. No unusual lytic or sclerotic lesions of bone. SOFT TISSUES: Unremarkable. No soft tissue swelling or gas. No radiopaque foreign body. RAD/Hand Min 3 Views IMPRESSION: Polyarticular arthritic changes without acute or healing fracture or malalignment. Ulnar minus deformity without complication. Electronically Signed: Gaudencio Riggs MD at 4:21 EST , CC: REGINA-Marga Arriaga; Gaudencio Ambriz DO Bike Mechanic: Signed Normal [facility] Lumbar Spine 2 or 3 Viewson 06-06-2024 Lumbar Spine 2 or 3 Views [facility] Imaging Services [address] [place] [address] Lumbar Spine 2 or 3 Views MR#: [id number] Acct: [id number] Name: MARIMAR WANG Rep #: [id number] : 1960 F 64 From: Gaudencio Riggs MD PCP: [facility] Arriola Status: REG ER Study: Lumbar Spine 2 or 3 Views Date of Exam: Exam# [id number] Ordering Dr: Gaudencio Ambriz DO [id number] EXAM: XR LUMBOSACRAL SPINE, 2 OR 3 VIEWS CLINICAL INDICATION: pain TECHNIQUE: Frontal and lateral views of the lumbar spine and sacrum. COMPARISON: No relevant prior studies available. FINDINGS: VERTEBRAE: Grade 1 degenerative anterolisthesis of L4 on L5 and also of L5 on S1. Preserved vertebral body height. No fracture. No spondylolisthesis. Preservation of the normal lumbar lordosis. No significant facet arthropathy. DISC SPACES: No acute findings. Disc spaces are maintained. VASCULATURE: Vascular calcifications in the pelvis. GASTROINTESTINAL TRACT: Stool throughout the colon. Included bowel gas pattern is non-obstructive. OTHER FINDINGS: No gross evidence for free air on upright imaging. RAD/Lumbar Spine 2 or 3 Views IMPRESSION: 1. No acute or healing fracture. 2. Grade 1 degenerative anterolisthesis of L4 on L5 and also of L5 on S1. Electronically Signed: Gaudencio Riggs MD at 4:14 EST , CC: 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-C Julio Arriaga; Gaudencio Ambriz DO Bike Mechanic: Signed Normal [facility] Ribs Uni Min 3V w/PA Cheston 06-06-2024 Ribs Uni Min 3V w/PA Chest [facility] Imaging Services [address] [place], [place] [id number] Ribs Uni Min 3V w/PA Chest MR#: [id number] Acct: [id number] Name: MARIMAR WANG Rep #: [id number] : 1960 F 64 From: Karla Roberson PCP: [facility] Arriola Status: REG ER Study: Ribs Uni Min 3V w/PA Chest Date of Exam: 06/06 Exam# [id number] Ordering Dr: Gaudencio Ambriz DO [id number] INDICATION: pain EXAMINATION/TECHNIQUE: X-RAY - XR Ribs Unilateral W/ PA Chest Min 3 Views COMPARISON: CT ChestMay 2023 5:24pm FINDINGS: SOFT TISSUES: No soft tissue swelling or gas. BONES: No evidence of displaced rib fracture. No sclerotic or destructive changes observed. VISUALIZED LUNGS: Subpleural ill-defined airspace opacities in the right lung base may represent early pneumonia. Calcified granuloma in the lingula. RAD/Ribs Uni Min 3V w/PA Chest IMPRESSION: Possible early pneumonia in the right lower lobe. Electronically Signed: Karla Feng MD at 4:43 EST Reading Location ID and State: [facility] / [place] Tel , Service support , CC: [facility] Arriaga; Gaudencio Ambriz DO Bike Mechanic: Signed Normal [facility] Spine Cervical without Contr ason 06-06-2024 Spine Cervical without Contras [facility] Imaging Services [address] [place] [address] Spine Cervical without Contras MR#: [id number] Acct: [id number] Name: MARIMAR WANG Rep #: [id number] : 1960 F 64 From: Gaudencio Riggs MD PCP: [facility] Arriola Status: REG ER Study: Spine Cervical without Contras Date of Exam: 08/06/23 Exam# [id number] Ordering Dr: Gaudencio Ambriz DO [id number] EXAM: CT CERVICAL SPINE WITHOUT INTRAVENOUS CONTRAST CLINICAL INDICATION: head injury TECHNIQUE: Helically acquired images were obtained of the cervical spine without intravenous contrast. 2D reformatted images were reviewed. CTDIvol = ( 25.54 ) mGy, DLP = ( 543.67 ) mGycm This CT exam was performed using one or more of the following dose reduction techniques: automated exposure control, adjustment of the mA and/or kV according to patient size, and/or use of iterative reconstruction technique. COMPARISON: No relevant prior studies available. FINDINGS: VERTEBRAE: Unremarkable. No traumatic subluxation. No discrete lytic or blastic abnormality. Normal craniocervical junction and cervicothoracic junction. No evidence of acute or healing fracture or malalignment. DISCS/SPINAL CANAL/NEURAL FORAMINA: Multilevel spine degenerative changes. No critical central canal stenosis. SOFT TISSUES: Nuchal ligamentous ossification at the C6 and C7 levels. No prevertebral soft tissue swelling. No other abnormalities. VASCULATURE: Atherosclerotic calcifications of the internal carotid arteries of the neck. LYMPH NODES: Unremarkable. No cervical adenopathy. LUNG APICES: Mild biapical pleural-parenchymal scarring. No pneumothorax. PLEURAL SPACE: Unremarkable. No significant effusion. No apical pneumothorax. CT/Spine Cervical without Contras IMPRESSION: 1. No evidence of acute or healing fracture or malalignment. AIDOC was utilized to assist in identifying pertinent positive findings. Electronically Signed: Gaudencio Riggs MD at 4:18 EST Reading Location ID and State: Formerly named [facility] / [place] Tel , Service support , CC: REGINA-C Julio Arriaga; Gaudencio Ambriz DO Bike Mechanic: Signed Normal [facility] Thoracic Spine 3 Viewson Thoracic Spine 3 Views [facility] Imaging Services [address] [place] [address] Thoracic Spine 3 Views MR#: [id number] Acct: [id number] Name: MARIMAR WANG Rep #: [id number] : 1960 F 64 From: Gaudencio Riggs MD PCP: STEFANO ArriolaC Status: REG ER Study: Thoracic Spine 3 Views Date of Exam: 06/06/24 Exam# [id number] Ordering Dr: Gaudencio Ambriz DO [id number] EXAM: XR THORACIC SPINE, 3 VIEWS CLINICAL INDICATION: pain TECHNIQUE: Frontal, lateral and swimmer''s views of the thoracic spine. COMPARISON: June 06, 2024 FINDINGS: VERTEBRAE: Unremarkable. No spondylolisthesis. Preservation of the normal thoracic kyphosis. No significant facet arthropathy. No acute or healing fracture or malalignment. No unusual lytic or sclerotic lesions of bone. DISC SPACES: Degenerative changes of the spine at multiple levels. VASCULATURE: Atherosclerotic calcifications of the nonenlarged thoracic aortic arch. RAD/Thoracic Spine 3 Views IMPRESSION: No acute or healing fracture or malalignment. Electronically Signed: Gaudencio Riggs MD at 4:23 EST , CC: S[facility]AI Arriaga; Gaudencio Ambriz DO Bike Mechanic: Signed Normal [facility] 06-03-2024 [facility] Normal [facility]29[facility] -------- MARIMAR WANG ([id number]) 1960 F Date Time Provider Department 05/29/24 SARAH PEARSON During your visit today, we recorded the following information about you: Candace Alvarenga MA 05/29/2024 4:09 PM Signed ----- Message from Sarah Pearson PA-C sent at 05/29/2024 1:13 PM EDT ----- Please call patient, results showed persistent anemia, hemoglobin 10.1, continues to decline, other labs look concerning for iron deficiency. Please see if she is taking any iron, if so how much. If she is not, then she will need to start taking at least 1 tablet daily kjva-snn-ouprmsw. Her protein levels are also low, increase protein in diet. Sarah Pearson PA-C 05/29/24 Candace Alvarenga MA 05/29/2024 4:12 PM Signed Called patient and relayed message. She voiced understanding. Patient states she is unable to take Iron tablets. She states it causes vomiting. She states she received Iron IV through heme/onc in [facility] several years ago. Relayed protein enriched foods to patient. Sarah Pearson PA-C 05/29/2024 4:23 PM Signed If she can remember who she saw- I recommend reaching back out for an appt. Consult placed LIZZIE Cruz Amanda K, PA-C 05/29/2024 4:23 PM Signed Addended by: SARAH PEARSON on: 05/29/2024 04:23 PM Modules accepted: Orders Candace Alvarenga MA 06/01/2024 11:33 AM Signed Called patient and relayed message. She voiced understanding. Allergies As of Date: 05/29/2024 Noted Allergy Reaction CYMBALTA (DULOXETINE) 11/21/2023 5 - Intolerance Comments: Headaches NSAIDS (NON-STEROIDAL ANTI-INFLAM*04/16/2005 10 - Anaphylaxis Comments: Had anaphylactic reaction to Aleve VIBRAMYCIN (DOXYCYCLINE CALCIUM) 04/16/2005 10 - Anaphylaxis DILAUDID (HYDROMORPHONE (BULK)) 11/21/2023 11 - Vomiting MORPHINE 11/21/2023 11 - Vomiting HORSE/EQUINE CONTAINING PRODUCTS 11/28/2023 7 - Swelling VICODIN (HYDROCODONE-ACETAMINOPH E*11/21/2023 11 - Vomiting Comments: Can take if given antiemetic at same time Date Reviewed: 05/21/2024 Reviewed by: Arlene Barroso, RN - Fully Assessed Reason for Visit: Results [95] Primary Visit Diagnosis:Iron deficiency anemia, unspecified iron deficiency anemia type [D50.9] Order(s):CONSULT TO HEMATOLOGY [9014] Order #: [id number]: 1 FUTURE Prescriptions as of 06/01/2024 - Fluticasone Propionate (CUTIVATE) 0.05 % cream Apply to affected area two times a day. - meclizine (ANTIVERT) 25 mg tab Take 25 mg by mouth three times a day as needed (for dizziness). - leflunomide (ARAVA) 20 mg tablet Take 1 tablet by mouth once daily. - cholecalciferol, Vitamin D3, (VITAMIN D3) 1,250 mcg (50,000 unit) cap capsule Take 1 capsule by mouth every other week. - atorvastatin (LIPITOR) 80 mg tablet Take 80 mg by mouth once daily. - cvnbdh-fqbiqilx-ppkwudq (CREON 36) 36,000-114,000- 180,000 unit delayed release capsule Take by mouth with meals and at bedtime. With snacks also - furosemide (LASIX) 20 mg tablet Take 20 mg by mouth once daily. - budesonide, enteric coated (ENTOCORT EC) 3 mg 24 hr capsule Take 2 capsules by mouth every afternoon. - pantoprazole DR (PROTONIX) 40 mg tablet Take 40 mg by mouth once daily. - dicyclomine (BENTYL) 20 mg tablet Take 20 mg by mouth twice daily. - VITAMIN B-12 1,000 mcg tab DISSOLVE 1 TABLET BY MOUTH ONCE DAILY - amLODIPine (NORVASC) 5 mg tablet Take by mouth. Takes 7.5 mg each day - promethazine (PHENERGAN) 25 mg tablet Take 1 tablet by mouth every 6 hours as needed for nausea/vomiting. - clopidogrel (PLAVIX) 75 mg tablet Take 75 mg by mouth once daily. - FLUoxetine (PROZAC) 20 mg capsule Take 3 capsules by mouth once daily. - abatacept/maltose (ORENCIA, WITH MALTOSE, INTRAVENOUS) Inject intravenously. - albuterol HFA (VENTOLIN HFA) 90 mcg/actuation inhaler Inhale 2 Puffs as instructed every 4 hours as needed for wheezing/shortness of breath. - buPROPion XL (WELLBUTRIN XL) 150 mg 24 hr tablet Take 1 tablet by mouth once daily. - mometasone (NASONEX) 50 mcg/actuation nasal spray Use 2 Sprays in the nose once daily. Rinse mouth after use. - albuterol (PROVENTIL) 2.5 mg /3 mL (0.083 %) nebulizer solution Use 3 mL via nebulizer every 4 hours as needed for wheezing/shortness of breath. Use over 5-15minutes. - acetaminophen (TYLENOL) 325 mg tablet Take by mouth every 6 hours as needed. - albuterol (PROVENTIL) 2.5 mg /3 mL (0.083 %) nebulizer solution Use 3 mL via nebulizer every 6 hours as needed for Wheezing/Shortness of Breath. - >Nebulizer For Home Nebulizer for home use. Diagnosis: Moderate persistent asthma with acute exacerbation and pneumonia Meds Comments as of 02/06/2017: Xeabigailz use pharmacy [facility] [place] [address] Problem List As Of Date 05/29/2024 Noted Resolved Fracture of triquetrum of left wrist, closed [S* (more content not included)... Normal [facility] CBC W Auto Differential pane l (Bld)on 05-21-2024 Basophils (Bld) [#/Vol] 0.09 10*3/uL [facility] Basophils/100 WBC (Bld) 1.3 % [facility] Differential cell count method Nom (Bld) Auto [facility] Eosinophils (Bld) [#/Vol] 0.19 10*3/uL [facility] Eosinophils/100 WBC (Bld) 2.8 % [facility] Erythrocyte distribution width (RBC) [Ratio] 17.1 % High 11.5 - 15.0 % [facility] Hematocrit (Bld) [Volume fraction] 33.5 % Low 36.0 - 46.0 % [facility] Hemoglobin (Bld) [Mass/Vol] 10.1 g/dL Low 11.5 - 15.5 g/dL [facility] Immature granulocytes (Bld) [#/Vol] 0.03 10*3/uL [facility] Immature granulocytes/100 WBC (Bld) 0.4 % [facility] Interpretation and review of laboratory results Abnormal [facility] Lymphocytes (Bld) [#/Vol] 1.23 10*3/uL [facility] Lymphocytes/100 WBC (Bld) 18.2 % [facility] MCH (RBC) [Entitic mass] 24.5 pg Low 26.0 - 34.0 pg [facility] MCHC (RBC) [Mass/Vol] 30.1 g/dL Low 30.5 - 36.0 g/dL [facility] MCV (RBC) [Entitic vol] 81.3 fL 80.0 - 100.0 fL [facility] Monocytes (Bld) [#/Vol] 0.46 10*3/uL [facility] Monocytes/100 WBC (Bld) 6.8 % [facility] Neutrophils (Bld) [#/Vol] 4.75 10*3/uL [facility] Neutrophils/100 WBC (Bld) 70.5 % [facility] Nucleated RBC (Bld) [#/Vol] NINF [facility] Nucleated RBC/100 WBC (Bld) [Ratio] 0.0 % /100 WBC [facility] Platelet mean volume (Bld) [Entitic vol] 12.3 fL 9.0 - 12.7 fL [facility] Platelets (Bld) [#/Vol] 240 10*3/uL [facility] RBC (Bld) [#/Vol] 4.12 10*6/uL 3.90 - 5.2 0 m/uL [facility] WBC (Bld) [#/Vol] 6.75 10*3/uL [facility] Basophils (Bld) [#/Vol] 0.09 10*3/uL Normal <0.11 [facility] Comment on above: Order Comment: Speci men Type: BLOOD SPECIMEN Ordering Facility: [facility] Address: [address] [place] [address] Performed By: #### 5 7021-8 #### [facility] CLIA [id number] [address] [place] Basophils/100 WBC (Bld) 1.3 % Normal [facility] Comment on above: Order Comment: Speci men Type: BLOOD SPECIMEN Ordering Facility: [facility] Address: [address] [place] [address] Performed By: #### 5 7021-8 #### [facility] CLIA [id number] 1 [place] [address] [place] Differential cell count method Nom (Bld) Auto Normal [facility] Comment on above: Order Comment: Speci men Type: BLOOD SPECIMEN Ordering Facility: [facility] Address: [address] [place] [address] Performed By: #### 5 7021-8 #### [place] [facility] CLIA [id number] 1 [place] [address] [place] Eosinophils (Bld) [#/Vol] 0.19 10*3/uL Normal <0.46 [facility] Comment on above: Order Comment: Speci men Type: BLOOD SPECIMEN Ordering Facility: [facility] Address: [address] [place] [address] Performed By: #### 5 7021-8 #### [facility] CLIA [id number] [address] Eosinophils/100 WBC (Bld) 2.8 % Normal [facility] Comment on above: Order Comment: Speci men Type: BLOOD SPECIMEN Ordering Facility: [facility] Address: [address] [place] [address] Performed By: #### 5 7021-8 #### [facility] CLIA [id number] [address] [place] Erythrocyte distribution width (RBC) [Ratio] 17.1 % High 11.5-15.0 [facility] Comment on above: Order Comment: Speci men Type: BLOOD SPECIMEN Ordering Facility: [facility] Address: [address] [place] [address] Performed By: #### 5 7021-8 #### [facility] CLIA [id number] [address] STATES OF [facility] Hematocrit (Bld) [Volume fraction] 33.5 % Low 36.0-46.0 [facility] Comment on above: Order Comment: Speci men Type: BLOOD SPECIMEN Ordering Facility: [facility] Address: [address] [place] [address] Performed By: #### 5 7021-8 #### [facility] CLIA [id number] [address] [place] Hemoglobin (Bld) [Mass/Vol] 10.1 g/dL Low 11.5-15.5 [facility] Comment on above: Order Comment: Speci men Type: BLOOD SPECIMEN Ordering Facility: [facility] Address: [facility] [place] [address] Performed By: #### 5 7021-8 #### [facility] [facility] CLIA [id number] [address] [place] Immature granulocytes (Bld) [#/Vol] 0.03 10*3/uL Normal <0.10 [facility] Comment on above: Order Comment: Speci men Type: BLOOD SPECIMEN Ordering Facility: [facility] Address: [address] [place] [address] Performed By: #### 5 7021-8 #### [facility] CLIA [id number] [address] Immature granulocytes/100 WBC (Bld) 0.4 % Normal [facility] Comment on above: Order Comment: Speci men Type: BLOOD SPECIMEN Ordering Facility: [facility] Address: [address] [place] [address] Performed By: #### 5 7021-8 #### [facility] CLIA [id number] [address] Lymphocytes (Bld) [#/Vol] 1.23 10*3/uL Normal 1.00-4.00 [facility] Comment on above: Order Comment: Speci men Type: BLOOD SPECIMEN Ordering Facility: [facility] Address: [address] [place] [address] Performed By: #### 5 7021-8 #### [facility] CLIA [id number] [address] Lymphocytes/100 WBC (Bld) 18.2 % Normal [facility] Comment on above: Order Comment: Speci men Type: BLOOD SPECIMEN Ordering Facility: [facility] Address: [address] [place] [address] Performed By: #### 5 7021-8 #### [facility] CLIA [id number] [address] MCH (RBC) [Entitic mass] 24.5 pg Low 26.0-34.0 [facility] Comment on above: Order Comment: Speci men Type: BLOOD SPECIMEN Ordering Facility: [facility] Address: [address] [place] [address] Performed By: #### 5 7021-8 #### [facility] CLIA [id number] [address] MCHC (RBC) [Mass/Vol] 30.1 g/dL Low 30.5-36.0 [facility] Comment on above: Order Comment: Speci men Type: BLOOD SPECIMEN Ordering Facility: [facility] Address: [address] [place] [address] Performed By: #### 5 7021-8 #### [facility] CLIA [id number] [address] [place] MCV (RBC) [Entitic vol] 81.3 fL Normal 80.0-100.0 [facility] Comment on above: Order Comment: Speci men Type: BLOOD SPECIMEN Ordering Facility: [facility] Address: [address] [place] [address] Performed By: #### 5 7021-8 #### [facility] CLIA [id number] [address] [place] Monocytes (Bld) [#/Vol] 0.46 10*3/uL Normal <0.87 [facility] Comment on above: Order Comment: Speci men Type: BLOOD SPECIMEN Ordering Facility: [facility] Address: [address] [place] [address] Performed By: #### 5 7021-8 #### [facility] CLIA [id number] [address] STATES [place] [facility] Monocytes/100 WBC (Bld) 6.8 % Normal [facility] Comment on above: Order Comment: Speci men Type: BLOOD SPECIMEN Ordering Facility: [facility] Address: [address] [place] [address] Performed By: #### 5 7021-8 #### [facility] CLIA [id number] [address] [place] Neutrophils (Bld) [#/Vol] 4.75 10*3/uL Normal 1.45-7.50 [facility] Comment on above: Order Comment: Speci men Type: BLOOD SPECIMEN Ordering Facility: [facility] Address: [address] [place] [address] Performed By: #### 5 7021-8 #### [facility] CLIA [id number] [address] Neutrophils/100 WBC (Bld) 70.5 % Normal [facility] Comment on above: Order Comment: Speci men Type: BLOOD SPECIMEN Ordering Facility: [facility] Address: [address] [place] [address] Performed By: #### 5 7021-8 #### [facility] CLIA [id number] [address] [place] Nucleated RBC (Bld) [#/Vol] 10*3/uL Normal <0.01 [facility] Comment on above: Order Comment: Speci men Type: BLOOD SPECIMEN Ordering Facility: [facility] Address: [address] [place] [address] Performed By: #### 5 7021-8 #### [facility] CLIA [id number] [address] Nucleated RBC/100 WBC (Bld) [Ratio] 0.0 /100 WBC Normal [facility] Comment on above: Order Comment: Speci men Type: BLOOD SPECIMEN Ordering Facility: [facility] Address: [address] [place] [address] Performed By: #### 5 7021-8 #### [facility] CLIA [id number] [address] Platelet mean volume (Bld) [Entitic vol] 12.3 fL Normal 9.0-12.7 [facility] Comment on above: Order Comment: Speci men Type: BLOOD SPECIMEN Ordering Facility: [facility] Address: [address] [place] [address] Performed By: #### 5 7021-8 #### [facility] CLIA [id number] [address] [place] Platelets (Bld) [#/Vol] 240 10*3/uL Normal 150-400 [facility] Comment on above: Order Comment: Speci men Type: BLOOD SPECIMEN Ordering Facility: [facility] Address: [address] [place] [address] Performed By: #### 5 7021-8 #### [facility] CLIA [id number] [address] RBC (Bld) [#/Vol] 4.12 10*6/uL Normal 3.90-5.20 [facility] Comment on above: Order Comment: Speci men Type: BLOOD SPECIMEN Ordering Facility: [facility] Address: [address] [place] [address] Performed By: #### 5 7021-8 #### [facility] CLIA [id number] [address] WBC (Bld) [#/Vol] 6.75 10*3/uL Normal 3.70-11.00 [facility] Comment on above: Order Comment: Speci men Type: BLOOD SPECIMEN Ordering Facility: [facility] Address: [address] [place] [address] Performed By: #### 5 7021-8 #### [facility] CLIA [id number] [address] Comprehensive metabolic 2000 panelon 05-21-2024 Albumin [Mass/Vol] 3.7 g/dL Low 3.9-4.9 [facility] Comment on above: Order Comment: Speci men Type: BLOOD SPECIMEN Ordering Facility: [facility] Address: [address] [place] [address] Performed By: #### 2 4323-8 #### [facility] CLIA [id number] [address] ALP [Catalytic activity/Vol] 82 U/L Normal 34-123 [facility] Comment on above: Order Comment: Speci men Type: BLOOD SPECIMEN Ordering Facility: [facility] Address: [address] [place] [address] Performed By: #### 2 4323-8 #### [facility] CLIA [id number] [address] ALT With P-5'-P [Catalytic activity/Vol] 20 U/L Normal 7-38 [facility] Comment on above: Order Comment: Speci men Type: BLOOD SPECIMEN Ordering Facility: [facility] Address: [address] [place] [address] Performed By: #### 2 4323-8 #### [facility] CLIA [id number] [address] [place] Anion gap [Moles/Vol] 11 mmol/L Normal 8-15 [facility] Comment on above: Order Comment: Speci men Type: BLOOD SPECIMEN Ordering Facility: [facility] Address: [address] [place] [address] Performed By: #### 2 4323-8 #### [facility] CLIA [id number] [address] [place] AST With P-5'-P [Catalytic activity/Vol] 21 U/L Normal 13-35 [facility] Comment on above: Order Comment: Speci men Type: BLOOD SPECIMEN Ordering Facility: [facility] Address: [address] [place] [address] Performed By: #### 2 4323-8 #### [facility] CLIA [id number] [address] [place] Bilirubin [Mass/Vol] mg/dL Low 0.2-1.3 [facility] Comment on above: Order Comment: Speci men Type: BLOOD SPECIMEN Ordering Facility: [facility] Address: [address] [place] [address] Performed By: #### 2 4323-8 #### [facility] CLIA [id number] [address] [place] Calcium [Mass/Vol] 8.6 mg/dL Normal 8.5-10.2 [facility] Comment on above: Order Comment: Speci men Type: BLOOD SPECIMEN Ordering Facility: [facility] Address: [address] [place] [address] Performed By: #### 2 4323-8 #### [facility] CLIA [id number] [address] [place] Chloride [Moles/Vol] 104 mmol/L Normal 98-107 [facility] Comment on above: Order Comment: Speci men Type: BLOOD SPECIMEN Ordering Facility: [facility] Address: [facility] [place] [address] Performed By: #### 2 4323-8 #### [facility] CLIA [id number] [address] [place] CO2 [Moles/Vol] 22 mmol/L Normal 22-30 [facility] Comment on above: Order Comment: Speci men Type: BLOOD SPECIMEN Ordering Facility: [facility] Address: [address] [place] [address] Performed By: #### 2 4323-8 #### [facility] CLIA [id number] [address] Creatinine [Mass/Vol] 0.77 mg/dL Normal 0.58-0.96 [facility] Comment on above: Order Comment: Speci men Type: BLOOD SPECIMEN Ordering Facility: [facility] Address: [address] [place] [address] Performed By: #### 2 4323-8 #### [facility] CLIA [id number] [address] Creatinine and Glomerular filtration rate.predicted panel (S/P/Bld) 86 mL/min/1.73m??? Normal >=60 [facility] Comment on above: Order Comment: Speci men Type: BLOOD SPECIMEN Ordering Facility: [facility] Address: [address] [place] [address] Result Comment: Sonia mated Glomerular Filtration Rate (eGFR) is calculated using the 2020 CKD-EPI creatinine equation. This equation utilizes serum creatinine, sex, and age as parameters. The creatinine assay has traceable calibration to isotope dilution-mass spectrometry. Refer to KDIGO guidelines for clinical interpretation. In patients with unstable renal function, e.g. those with acute kidney injury, the eGFR may not accurately reflect actual GFR. Performed By: #### 2 4323-8 #### [facility] CLIA [id number] [address] [place] [address] [place] Glucose [Mass/Vol] 166 mg/dL High 74-99 [facility] Comment on above: Order Comment: Mindy mcfarlane Type: BLOOD SPECIMEN Ordering Facility: [facility] Address: [address] [place], [place] [id number] Result Comment: The [place] [employer] (ADA) provides guidance for cutoff values for fasting glucose and random glucose. The ADA defines fasting as no caloric intake for at least 8 hours. Fasting plasma glucose results between 100 to 125 mg/dL indicate increased risk for diabetes (prediabetes). Fasting plasma glucose results greater than or equal to 126 mg/dL meet the criteria for diagnosis of diabetes. In the absence of unequivocal hyperglycemia, results should be confirmed by repeat testing. In a patient with classic symptoms of hyperglycemia or hyperglycemic crisis, random plasma glucose results greater than or equal to 200 mg/dL meet the criteria for diagnosis of diabetes. Reference: Standards of Medical Care in Diabetes 2016, [place] [employer]. Diabetes Care. 2016.39(Suppl 1). Performed By: #### 2 4323-8 #### [facility] CLIA [id number] 1 [place] [address] [place] Potassium [Moles/Vol] 4.3 mmol/L Normal 3.7-5.1 [facility] Comment on above: Order Comment: Mindy mcfarlane Type: BLOOD SPECIMEN Ordering Facility: [facility] Address: [address] [place] [address] Performed By: #### 2 4323-8 #### [facility] CLIA [id number] 1 [place] [address] [place] Protein [Mass/Vol] 6.1 g/dL Low 6.3-8.0 [facility] Comment on above: Order Comment: Mindy mcfarlane Type: BLOOD SPECIMEN Ordering Facility: [facility] Address: [address] [place] [address] Performed By: #### 2 4323-8 #### [facility] CLIA [id number] 1 [place] [address] [place] Sodium [Moles/Vol] 137 mmol/L Normal 136-144 [facility] Comment on above: Order Comment: Stanislavi men Type: BLOOD SPECIMEN Ordering Facility: [facility] Address: [address] [place] [address] Performed By: #### 2 4323-8 #### [facility] CLIA [id number] [address] [place] [id number] [place] [facility] Urea nitrogen [Mass/Vol] 12 mg/dL Normal 7-21 [facility] Comment on above: Order Comment: Speci men Type: BLOOD SPECIMEN Ordering Facility: [facility] Address: [address] [place] [id number] Performed By: #### 2 4323-8 #### [facility] CLIA [id number] [address] [place] [id number] [place] Gastroenterology Visit Repor ton 04-27-2024 Gastroenterology Visit Report [facility] [address] [place] [address] OFFICE VISIT Date of Service: 04/27/24 MR#: [id number] Acct: [id number] Name: MARIMAR WANG Rep #: [id number] : 1960 Provider: Andrez Pitts DO Age/Sex: 64/F Location: [facility] Status: Signed Intake Vital Signs 12/13/23 16:46 03/20/24 12:59 Height 5 ft 3 in 5 ft 3 in Intake Visit Reasons: 2 M FU Chief Complaint: f/u diarrhea Allergies doxycycline calcium (From Vibramycin) Allergy (Verified 03/20/24 12:54) Anaphylaxis doxycycline hyclate (From Vibramycin) Allergy (Verified 03/20/24 12:54) Anaphylaxis doxycycline monohydrate (From Vibramycin) Allergy (Verified 03/20/24 12:54) Anaphylaxis NSAIDS (Non-Steroidal Anti-Inflamma Allergy (Verified 03/20/24 12:54) Anaphylaxis duloxetine (From Cymbalta) Adverse Reaction (Verified 03/20/24 12:54) HEADACHE AND UPSET STOMACH hydrocodone bitartrate (From Vicodin) Adverse Reaction (Verified 03/20/24 12:54) STOMACH UPSET hydromorphone HCl (From Dilaudid) Adverse Reaction (Verified 03/20/24 12:54) Vomiting morphine Adverse Reaction (Verified 03/20/24 12:54) Vomiting Medications ???Medication ???Instructions ???Recorded ???Confirmed ???Type albuterol sulfate 90 mcg/actuation 2 puff inhalation Q4H PRN PRN 03/13/15 04/27/24 History aerosol inhaler Shortness Of Breath clopidogrel 75 mg tablet 75 mg PO DAILY BLOOD THINNER 03/13/15 04/27/24 History fluoxetine 20 mg capsule 60 mg PO Q MENTAL HEALTH 12/13/15 04/27/24 History bupropion HCl 150 mg 24 hr tablet, 150 mg PO Q MENTAL HEALTH 11/13/17 04/27/24 History extended release peg [id number]-mwmkfor n 1 1 drp OP 4X/DAY DRY EYES 11/13/17 04/27/24 History %-0.2 %-0.2 % eye drops (Dry Eye Relief) leflunomide 20 mg tablet (Arava) 20 mg PO DAILY RA 03/22/18 04/27/24 History amlodipine 5 mg tablet 7.5 mg PO DAILY BP 08/15/22 04/27/24 History mometasone 50 mcg/actuation nasal 2 spray intranasal DAILY ALLERGIES 08/15/22 04/27/24 History spray ergocalciferol (vitamin D2) 1,250 1,250 mcg PO .EVERY OTHER WEEK 11/05/22 04/27/24 History mcg (50,000 unit) capsule (Vitamin SUPPELEMNT D2) mecobalamin (vitamin B12) 1,000 1,000 mcg sublingual DAILY 12/06/22 04/27/24 History mcg disintegrating SUPPLEMENT tablet,sublingual abatacept 50 mg/0.4 mL 50 mg subcut QMONTH RA 12/17/22 04/27/24 History subcutaneous syringe (Orencia) polyethylene glycol 3350 17 4 g PO PRN PRN Constipation 01/09/23 04/27/24 History gram/dose oral powder (Miralax) prbonx-sklspstz-opaorcf See Rx Instructions PO .COMPLEX 09/25/23 04/27/24 Rx 36,000-114,000-180,000 unit #300 caps capsule,delay rel (Creon) acetaminophen 500 mg tablet 1,000 mg PO Q6H PRN fever or pain 11/15/23 04/27/24 History atorvastatin 80 mg tablet 80 mg PO QDAY 11/15/23 04/27/24 History hydrocortisone 2.5 % topical cream 1 applic VA BID PRN Crohn's 11/29/23 04/27/24 Rx with perineal applicator disease #30 grams lubiprostone 8 mcg capsule 8 mcg PO BID PRN for constipation 01/26/24 04/27/24 Rx #60 caps pantoprazole 40 mg tablet,delayed 40 mg PO DAILY #90 TABLETS 02/12/24 04/27/24 Rx release meclizine 25 mg tablet 25 mg PO DAILY PRN PRN dizziness 03/17/24 04/27/24 History dicyclomine 10 mg capsule 10 mg PO TID PRN for abdominal 03/21/24 04/27/24 Rx pain #90 caps alprazolam 1 mg tablet 1 mg PO TID PRN sleep, diarrhea 04/01/24 04/27/24 Rx and abdominal pain #60 tabs budesonide 3 mg 6 mg (2 x 3 mg) PO DAILY #60 caps 04/09/24 04/27/24 Rx capsule,delayed,extended release promethazine 25 mg tablet 25 mg PO Q6H PRN PRN Nausea #60 04/15/24 04/27/24 Rx tabs Have you fallen in the past year?: No PFSH Medical History History of Crohn's disease Psoriatic arthritis Psoriasis Internal derangement of right knee Wears glasses Post-menopausal Depression Anxiety Ambulates with cane Injury of back Difficulty swallowing History of IBS History of hiatal hernia Former smoker Shortness of breath on exertion Chronic cough History of echocardiogram History of stress test Hypertension Cardiology follow-up encounter History of CHF (congestive heart failure) History of irregular heartbeat Acute pharyngitis, unspecified URI (upper respiratory infection) Contact with or suspected exposure to other viral communicable disease History of partial replacement of left hip joint using bipolar prosthesis Vitamin D deficiency HLD (hyperlipidemia) Insomnia Dry eye Regular astigmatism, bilateral PVCs (premature ventricular contractions) Coronary artery stenosis Chronic diastolic CHF (congestive heart failure) Iron malabsorption Osteoarthritis Lumbar spondylosis Osteoporosis Congenital cataract Intermittent (more content not included)... Normal [facility] Abdomen Limitedon 03-25-2024 Abdomen Limited [facility] Imaging Services [address] [place] [address] Abdomen Limited MR#: [id number] Acct: [id number] Name: MARIMAR WANG Rep #: [id number] : 1960 F 63 From: Juan Antonio hernandez MD PCP: SINAI Arriola Status: REG CLI Study: Abdomen Limited Date of Exam: 03/25/24 Exam# [id number] Ordering Dr: Andrez Pitts DO [id number] STUDY: ABDOMINAL ULTRASOUND - RIGHT UPPER QUADRANT REASON FOR VISIT: Female, 63 years old RUQ pain TECHNIQUE: Ultrasound evaluation of the right upper quadrant was performed with real-time and static mendez-scale imaging. TECHNICAL QUALITY: Adequate. COMPARISON: Comparison is made with prior CT scan of the abdomen dated October 15, 2022. FINDINGS: Liver: The liver measures 15.6 cm. There is increased echogenicity consistent with fatty infiltration. The bile ducts are within normal limits. There is hepatic color flow. The direction of portal flow is hepatopetal. There is no demonstrated mass lesion. Gallbladder: Normal distended gallbladder. The gallbladder wall measures 2.0 mm. There is a negative sonographic Mae''s sign. There is no pericholecystic fluid. There are no gallstones. Common Bile Duct (C.B.D.): The common bile duct measures 6.5 mm. Pancreas: Normal size of the head, body and tail of the pancreas. There is normal echogenicity of the pancreas. There is no demonstrated pancreatic mass or cyst. Right Kidney: Normal size of the right kidney. The right kidney measures 10.3 cm x 4.8 cm x 4.3 cm. Normal renal cortex. The right cortex measures 1.4 cm. There is no demonstrated renal mass or cyst. There is no right hydronephrosis. US/Abdomen Limited IMPRESSION: Mild degree of fatty infiltration of the liver. Electronically Signed: Juan Antonio Becerra MD at 10:25 EDT , CC: SINAI Arriaga; Andrez Pitts DO Bike Mechanic: Signed Normal [facility] EGD Reporton 03-20-2024 EGD Report [facility] Medical Records Department [address] [place] [address] EGD Report MR#: [id number] Acct: [id number] Name: MARIMAR WANG Rep #: [id number] : 1960 63 From: Andrez Pitts DO PCP: SINAI Arriola Status:REG [facility] Patient Name: Marimar Wang Procedure Date: 03/20/2024 1:32 PM Date of : 1960 Age: 63 Procedure: Upper GI endoscopy Indications: Dysphagia Providers: Andrez Pitts DO Referring MD: Sinai Arriola Medicines: Monitored Anesthesia Care Patient Profile: This is a 63 year old female. Refer to note in patient chart for documentation of history and physical. Patient has symptoms of dysphagia with solids. Complications: No immediate complications. Procedure: Pre-Anesthesia Assessment: - Prior to the procedure, a History and Physical was performed, and patient medications and allergies were reviewed. The patient is competent. The risks and benefits of the procedure and the sedation options and risks were discussed with the patient. All questions were answered and informed consent was obtained. Patient identification and proposed procedure were verified by the physician in the pre-procedure area. Mental Status Examination: alert and oriented. Airway Examination: normal oropharyngeal airway and neck mobility. Respiratory Examination: clear to auscultation. CV Examination: normal. Prophylactic Antibiotics: The patient does not require prophylactic antibiotics. Prior Anticoagulants: The patient has taken no anticoagulant or antiplatelet agents except for NSAID medication. ASA Grade Assessment: II - A patient with mild systemic disease. After reviewing the risks and benefits, the patient was deemed in satisfactory condition to undergo the procedure. The anesthesia plan was to use monitored anesthesia care (MAC). Immediately prior to administration of medications, the patient was re-assessed for adequacy to receive sedatives. The heart rate, respiratory rate, oxygen saturations, blood pressure, adequacy of pulmonary ventilation, and response to care were monitored throughout the procedure. The physical status of the patient was re-assessed after the procedure. After obtaining informed consent, the endoscope was passed under direct vision. Throughout the procedure, the patient's blood pressure, pulse, and oxygen saturations were monitored continuously. The gastroscope was introduced through the mouth, and advanced to the second part of duodenum. The upper GI endoscopy was accomplished without difficulty. The patient tolerated the procedure well. Scope In: 1:45:21 PM Scope Out: 1:50:54 PM Total Procedure Duration Time 0 hours 5 minutes 33 seconds Findings: A moderate Schatzki ring was found at the gastroesophageal junction. A guidewire was placed and the scope was withdrawn. Dilation was performed with a Savary dilator with no resistance at 60 Fr. The dilation site was examined and showed moderate improvement in luminal narrowing. Estimated blood loss was minimal. The Z-line was irregular and was found 40 cm from the incisors. Biopsies were taken with a cold forceps for histology. Verification of patient identification for the specimen was done. Estimated blood loss was minimal. A medium-sized hiatal hernia was present. No other significant abnormalities were identified in a careful examination of the stomach. No gross lesions were noted in the first portion of the duodenum. Impression: - Moderate Schatzki ring. Dilated. - Z-line irregular, 40 cm from the incisors. Biopsied. - Medium-sized hiatal hernia. - No gross lesions in the first portion of the duodenum. Recommendation: - Discharge patient to home. - Resume previous diet. - Continue present medications. - Await pathology results. Procedure Code(s): --- Professional --- 18917, Esophagogastroduodenosco py, flexible, transoral; with insertion of guide wire followed by passage of dilator(s) through esophagus over guide wire 59775, 59,51, Esophagogastroduodenosco py, flexible, transoral; with biopsy, single or multiple CPT copyright 2021 [employer]. All rights reserved. The codes documented in this report are preliminary and upon medical record coder review may be revised to meet current compliance requirements. Andrez Pitts DO 03/20/2024 1:55:59 PM This report has been signed electronically. Number of Addenda: 0 Note Initiated On: 03/20/2024 1:32 PM 03/20/24 1356 Date Andrez Christina Signature: Date (if indicated) CC: 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-Marga Arriaga; Andrez Pitts DO Date Dictated: 03/20/24 1332 Date Transcribed: Bike Mechanic: RAUL Pineda [facility] MR/POSTOP.[facility] 03-20-2024 MR/POSTOP.[facility] Medical Records Department [address] [place] [address] Anesthesia Postop Eval I 03/20/24 1359 MR#: [id number] Acct: [id number] Name: MARIMAR WANG Rep #: [id number] : 1960 63 From: Kj Pemberton PCP: SINAI Arriola Status:REG SDC Y Race: C Location: [place] [address] Anesthesia: Postop Eval I Current Vital Signs Temperature: 98.1 F Pulse Rate: 74 Blood Pressure: 147/66 Respiratory Rate: 16 Pulse Ox: 98 Oxygen Delivery Method: Room Air Assessment Airway patent: Yes Spontaneous unlabored respirations: Yes Mental status: Awake and Calm nausea: No Vomiting: No Anesthesia Complication: No Fluid Hydration Crystalloid volume administer (ml): 400 Total IV fluid infused: 400 Progress Note Anesthesia document: Postop Eval 1 completed: Yes 03/20/24 1400 Date Kj Marquez Signature: Date CC: Signed Normal [facility] MR/[id number] 03-20-2024 MR/POSTOPAN2 [facility] Medical Records Department [address] [place] [address] Anesthesia Postop Eval II 03/20/241706 MR#: [id number] Acct: [id number] Name: MARIMAR WANG Rep #: [id number] : 1960 63 From: Stas Young MD PCP: Julio Arriaga NP-C Status:[facility] Y Race: C Location: [place] Anesthesia Postop Eval I Sum Postop Eval Completion status Anesthesia document: Postop Eval 1 completed: Yes Anesthesia Postop Eval I Summary Anesthesia Postop Eval I Summary: Anesthesia Postop Eval I: Assessment Summary Airway patent Yes 03/20/24 14:00 [email or web address] Spontaneous unlabored Yes 03/20/24 14:00 [email or web address] respirations Mental status Awake,Calm 03/20/24 14:00 [email or web address] nausea No 03/20/24 14:00 [email or web address] Vomiting No 03/20/24 14:00 [email or web address] Anesthesia Postop Eval I: Fluid Summary Crystalloid volume administer 400 03/20/24 14:00 [email or web address] (ml) Colloids volume administered ( ml) Blood Product volume administered (ml) Total IV fluid infused 400 03/20/24 14:00 [email or web address] Anesthesia Postop Eval I: Summary Notes Anesthesia Complication No 03/20/24 14:00 [email or web address] Anesthesia Complication Comment: Post-operative progress note Anesthesia: Postop Eval II Evaluation Mental status: Awake and Calm Pain Level: 0 nausea: No Vomiting: No Complications Anesthesia Complication: No 03/20/241707 Date Stas Young MD Cosigner Signature: Date CC: Signed Normal [facility] Special Stain Group Ion 02-27 Special Stain Group I ------ Patient Age/Sex Location Account Attending Physician MARIMAR WANG 63/F [place] [id number] Andrez Pitts DO Specimen: [id number] Received: 03/20/24 Status: SAMREEN Aparicio Num: [id number] Spec Type: EGD BIOPSY Subm Dr: Andrez Pitts DO HEADER OPERATION: EGD with biopsy, dilation PRE-OP DIAGNOSIS: Diarrhea, Crohn's disease, pancreatic insufficiency, difficulty swallowing TISSUE SUBMITTED: Distal esophagus biopsy MICROSCOPIC DIAGNOSIS Distal esophagus, biopsy: Fragments of gastroesophageal mucosa with chronic inflammation. Intestinal metaplasia (goblet cell metaplasia) not identified. See comment. 03/24/2024 COMMENT Alcian blue/PAS stain with matched control is used in the evaluation of the specimen. MICROSCOPIC DESCRIPTION Slides are reviewed. GROSS DESCRIPTION Received in fixative is one container labeled with the patient's name and designated Distal esophagus biopsy. The specimen consists of multiple irregular fragments of light akhtar soft tissue that in aggregate measure 0.6 x 0.6 x 0.1 cm. The specimen is totally submitted in one cassette. 03/23/2024 TC:3 [facility]:[id number],56189 Patient Age/Sex Location Account Attending Physician MARIMAR WANG 63/F [place] [id number] Andrez Pitts DO Signed (signature on file) Dr. Fred Gonzales MD 03/24/24 1121 Normal [facility] Comment on above: Performed By: #### L 100.0100, L500.2500 #### [facility] [address] [place], [address] PT D/C Summary (1)on 024 PT D/C Summary (1) [facility] Physical Therapy [facility] [address] [place] [address] [address] [place] [address] / REHABILITATION SERVICES DISCHARGE SUMMARY MR#: [id number] Acct: [id number] Name: MARIMAR WANG Rep #: [id number] : 1960 63 From: Lincoln Gonzalez DPT, OCS, CSCS Referring Dr.: SINAI LEÓN Status: REG RCR Insurance: [facility] COMPLETE MEDICAID Discharge Summary D/C summary: It has been my pleasure to treat MARIMAR WANG referred by SINAI FERRIS, with the diagnosis of falls, unsteady gait for a total of 9 visit(s). Discharge Date: 03/12/24 Please see the following information for a summary of their discharge status. Subjective Subjective: Doing better. Using cane to get around. Dizzyness now and then but much better. balance feels better. No falls , no falls. Walking outside and does not effect activities. Ready to be done. Will continue ex at home. To doctor in 6 months. If gets dizzy typically just sitting still and doctor knows about this. Pain back pain: Pain Intensity (Out of 10): 0 neck: Pain Intensity (Out of 10): 0 Overall Improvement % Improvement: 95 Objective Objective/Function: FGA is much better, 30 SSTS is improved from day one and patient fucnitonally ambulating outdoors with her cane Will continue via HEP Goals Goal 1:: 14 on 30 SSTS to show improved strength and mobility Goal Progress: Progressing Goal 2:: I approp HEP to limit future problems with balance and strength Goal Progress: Goal Met Goal 3:: Pt feel 75% better in ability to confidently get around and remembering to use cane. Goal Progress: Goal Met Goal 4:: FGA Goal Progress: Goal Met Plan Plan: d/c D/C Information d/c sentence: If there are questions or concerns regarding this patient's physical therapy, please feel free to call me at [phone]. Thank you for the referral of this patient. Sincerely, Lincoln Gonzalez, DPT, OCS, CSCS Balance/Gait/Functional tests Balance/Special Test Scores Functional Gait Assessment Score: 29 % Disability: 3.3400 CATSIB Score (Max score 120 seconds): 98 Lower Extremity Functional Score: 47 TUG Test Time Seconds: 12 Tug Test: <20 sec.=mostly independent 30 Second Chair Rise Test Seconds: 12 Improvement % Improvement: 95 03/12/24 1215 CC: 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Rowan Arriaga; 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-C CLARICE LEÓN EBG Signed Normal [facility] Gastroenterology Visit Repor ton 03-10-2024 Gastroenterology Visit Report [facility] Gastroenterology [address] [place] [address] OFFICE VISIT Date of Service: 03/10/24 MR#: [id number] Acct: [id number] Name: MARIMAR WANG Rep #: [id number] : 1960 Provider: Andrez Pitts DO Age/Sex: 63/F Location: [facility] Status: Signed Intake Vital Signs 11/15/23 07:27 12/13/23 16:46 Height 5 ft 3 in 5 ft 3 in Intake Visit Reasons: 4 M FU Allergies doxycycline calcium (From Vibramycin) Allergy (Verified 12/13/23 16:48) Anaphylaxis doxycycline hyclate (From Vibramycin) Allergy (Verified 12/13/23 16:48) Anaphylaxis doxycycline monohydrate (From Vibramycin) Allergy (Verified 12/13/23 16:48) Anaphylaxis NSAIDS (Non-Steroidal Anti-Inflamma Allergy (Verified 12/13/23 16:48) Anaphylaxis duloxetine (From Cymbalta) Adverse Reaction (Verified 12/13/23 16:48) HEADACHE AND UPSET STOMACH hydrocodone bitartrate (From Vicodin) Adverse Reaction (Verified 12/13/23 16:48) STOMACH UPSET hydromorphone HCl (From Dilaudid) Adverse Reaction (Verified 12/13/23 16:48) Vomiting morphine Adverse Reaction (Verified 12/13/23 16:48) Vomiting Medications ???Medication ???Instructions ???Recorded ???Confirmed ???Type albuterol sulfate 90 mcg/actuation 2 puff inhalation Q4H PRN PRN 03/13/15 03/10/24 History aerosol inhaler Shortness Of Breath clopidogrel 75 mg tablet 75 mg PO DAILY BLOOD THINNER 03/13/15 03/10/24 History fluoxetine 20 mg capsule 60 mg PO QHS MENTAL HEALTH 12/13/15 03/10/24 History bupropion HCl 150 mg 24 hr tablet, 150 mg PO Q MENTAL HEALTH 11/13/17 03/10/24 History extended release peg [id number]-edtxcdw n 1 1 drp OP 4X/DAY DRY EYES 11/13/17 03/10/24 History %-0.2 %-0.2 % eye drops (Dry Eye Relief) leflunomide 20 mg tablet (Arava) 20 mg PO DAILY RA 03/22/18 03/10/24 History amlodipine 5 mg tablet 7.5 mg PO DAILY BP 08/15/22 03/10/24 History mometasone 50 mcg/actuation nasal 2 spray intranasal DAILY ALLERGIES 08/15/22 03/10/24 History spray ergocalciferol (vitamin D2) 1,250 1,250 mcg PO WE SUPPELEMNT 11/05/22 03/10/24 History mcg (50,000 unit) capsule (Vitamin D2) mecobalamin (vitamin B12) 1,000 1,000 mcg sublingual DAILY 12/06/22 03/10/24 History mcg disintegrating SUPPLEMENT tablet,sublingual abatacept 50 mg/0.4 mL 50 mg subcut QMONTH RA 12/17/22 03/10/24 History subcutaneous syringe (Orencia) polyethylene glycol 3350 17 4 g PO PRN PRN Constipation 01/09/23 03/10/24 History gram/dose oral powder (Miralax) rufnhp-enmuymez-kozatet See Rx Instructions PO .COMPLEX 09/25/23 03/10/24 Rx 36,000-114,000-180,000 unit #300 caps capsule,delay rel (Creon) acetaminophen 500 mg tablet 1,000 mg PO Q6H PRN fever or pain 11/15/23 03/10/24 History atorvastatin 80 mg tablet 80 mg PO QDAY 11/15/23 03/10/24 History hydrocortisone 2.5 % topical cream 1 applic VA BID PRN Crohn's 11/29/23 03/10/24 Rx with perineal applicator disease #30 grams oxycodone-acetaminophen 5 mg-325 1 tab PO Q8H PRN pain 3 days #10 12/13/23 03/10/24 Rx mg tablet (Percocet) tabs oxycodone-acetaminophen 5 mg-325 1 tab PO Q8H PRN pain 3 days #10 12/13/23 03/10/24 Rx mg tablet (Percocet) tabs budesonide 3 mg 6 mg (2 x 3 mg) PO DAILY PRN 12/27/23 03/10/24 Rx capsule,delayed,extended release diarrhea #60 ea dicyclomine 10 mg capsule 10 mg PO TID PRN abdominal pain 12/27/23 03/10/24 Rx #90 caps promethazine 25 mg tablet 25 mg PO Q6H PRN PRN Nausea #60 01/22/24 03/10/24 Rx tabs lubiprostone 8 mcg capsule 8 mcg PO BID PRN for constipation 01/26/24 03/10/24 Rx #60 caps pantoprazole 40 mg tablet,delayed 40 mg PO DAILY #90 TABLETS 02/12/24 03/10/24 Rx release PFSH Medical History (Updated 03/10/24 @ 15:[address] Maguire Friend, DO) Psoriatic arthritis Psoriasis Internal derangement of right knee Wears glasses Post-menopausal Depression Anxiety Ambulates with cane Injury of back Difficulty swallowing History of IBS History of hiatal hernia Former smoker Shortness of breath on exertion Chronic cough History of pain when walking History of echocardiogram History of stress test Hypertension Cardiology follow-up encounter History of CHF (congestive heart failure) History of irregular heartbeat Acute pharyngitis, unspecified URI (upper respiratory infection) Contact with or suspected exposure to other viral communicable disease History of partial replacement of left hip joint using bipolar prosthesis Vitamin D deficiency HLD (hyperlipidemia) Insomnia Dry eye Regular astigmatism, bilateral PVCs (premature ventricular contractions) Coronary artery stenosis Chronic diastolic CHF (congestive heart failure) Iron malabsorption Osteoarthritis Hip pain Lumbar spondylosis Osteoporosis Congenital cataract Intermittent palpitations Nause (more content not included)... Normal [facility] CBC W Auto Differential pane l (Bld)on 01-29-2024 Basophils (Bld) [#/Vol] 0.05 10*3/uL [facility] Basophils/100 WBC (Bld) 0.8 % [facility] Differential cell count method Nom (Bld) Auto [facility] Eosinophils (Bld) [#/Vol] 0.11 10*3/uL [facility] Eosinophils/100 WBC (Bld) 1.7 % [facility] Erythrocyte distribution width (RBC) [Ratio] 16.1 % High 11.5 - 15.0 % [facility] Hematocrit (Bld) [Volume fraction] 33.2 % Low 36.0 - 46.0 % [facility] Hemoglobin (Bld) [Mass/Vol] 10.2 g/dL Low 11.5 - 15.5 g/dL [facility] Immature granulocytes (Bld) [#/Vol] [facility] Immature granulocytes/100 WBC (Bld) 0.2 % [facility] Interpretation and review of laboratory results Abnormal [facility] Lymphocytes (Bld) [#/Vol] 0.95 10*3/uL Low [facility] Lymphocytes/100 WBC (Bld) 15.1 % [facility] MCH (RBC) [Entitic mass] 24.5 pg Low 26.0 - 34.0 pg [facility] MCHC (RBC) [Mass/Vol] 30.7 g/dL 30.5 - 36.0 g/dL [facility] MCV (RBC) [Entitic vol] 79.8 fL Low 80.0 - 100.0 fL [facility] Monocytes (Bld) [#/Vol] 0.59 10*3/uL [facility] Monocytes/100 WBC (Bld) 9.4 % [facility] Neutrophils (Bld) [#/Vol] 4.60 10*3/uL [facility] Neutrophils/100 WBC (Bld) 72.8 % [facility] Nucleated RBC (Bld) [#/Vol] [facility] Nucleated RBC/100 WBC (Bld) [Ratio] [facility] Platelet mean volume (Bld) [Entitic vol] 10.8 fL 9.0 - 12.7 fL [facility] Platelets (Bld) [#/Vol] 216 10*3/uL [facility] RBC (Bld) [#/Vol] 4.16 10*6/uL 3.90 - 5.2 0 m/uL [facility] WBC (Bld) [#/Vol] 6.31 10*3/uL [facility] Basophils (Bld) [#/Vol] 0.05 10*3/uL Normal <0.11 [facility] Comment on above: Order Comment: Speci men Type: BLOOD SPECIMEN Ordering Facility: [facility] Address: [address] [place] [address] Performed By: #### 5 7021-8 #### [facility] CLIA [id number] [address] [place] [address] [place] Basophils/100 WBC (Bld) 0.8 % Normal [facility] Comment on above: Order Comment: Speci men Type: BLOOD SPECIMEN Ordering Facility: [facility] Address: [address] [place] [address] Performed By: #### 5 7021-8 #### [facility] CLIA [id number] [address] [place] [address] [place] Differential cell count method Nom (Bld) Auto Normal [facility] Comment on above: Order Comment: Speci men Type: BLOOD SPECIMEN Ordering Facility: [facility] Address: [address] [place] [address] Performed By: #### 5 7021-8 #### [facility] CLIA [id number] [address] [place] [address] [place] Eosinophils (Bld) [#/Vol] 0.11 10*3/uL Normal <0.46 [facility] Comment on above: Order Comment: Speci men Type: BLOOD SPECIMEN Ordering Facility: [facility] Address: [address] [place] [address] Performed By: #### 5 7021-8 #### [facility] CLIA [id number] [address] [place] [address] [place] Eosinophils/100 WBC (Bld) 1.7 % Normal [facility] Comment on above: Order Comment: Speci men Type: BLOOD SPECIMEN Ordering Facility: [facility] Address: [address] [place] [address] Performed By: #### 5 7021-8 #### [facility] CLIA [id number] [address] [place] [address] [place] Erythrocyte distribution width (RBC) [Ratio] 16.1 % High 11.5-15.0 [facility] Comment on above: Order Comment: Speci men Type: BLOOD SPECIMEN Ordering Facility: [facility] Address: [facility] [place] [address] Performed By: #### 5 7021-8 #### [facility] CLIA [id number] [address] [place], [place] [id number] [place] Hematocrit (Bld) [Volume fraction] 33.2 % Low 36.0-46.0 [facility] Comment on above: Order Comment: Speci men Type: BLOOD SPECIMEN Ordering Facility: [facility] Address: [address] [place] [address] Performed By: #### 5 7021-8 #### [facility] CLIA [id number] [address] [place] [address] [place] Hemoglobin (Bld) [Mass/Vol] 10.2 g/dL Low 11.5-15.5 [facility] Comment on above: Order Comment: Speci men Type: BLOOD SPECIMEN Ordering Facility: [facility] Address: [address] [place] [address] Performed By: #### 5 7021-8 #### [facility] CLIA [id number] [address] [place] [address] [place] Immature granulocytes (Bld) [#/Vol] 10*3/uL Normal <0.10 [facility] Comment on above: Order Comment: Speci men Type: BLOOD SPECIMEN Ordering Facility: [facility] Address: [address] [place] [address] Performed By: #### 5 7021-8 #### [facility] CLIA [id number] [address] [place], [place] [id number] [place] Immature granulocytes/100 WBC (Bld) 0.2 % Normal [facility] Comment on above: Order Comment: Speci men Type: BLOOD SPECIMEN Ordering Facility: [facility] Address: [address] [place] [address] Performed By: #### 5 7021-8 #### [facility] CLIA [id number] [address] [place], [place] [id number] [place] [place] Lymphocytes (Bld) [#/Vol] 0.95 10*3/uL Low 1.00-4.00 [facility] Comment on above: Order Comment: Speci men Type: BLOOD SPECIMEN Ordering Facility: [facility] Address: [address] [place] [address] Performed By: #### 5 7021-8 #### [facility] CLIA [id number] [address] [place] [address] [place] Lymphocytes/100 WBC (Bld) 15.1 % Normal [facility] Comment on above: Order Comment: Speci men Type: BLOOD SPECIMEN Ordering Facility: [facility] Address: [address] [place] [address] Performed By: #### 5 7021-8 #### [facility] CLIA [id number] [address] [place], [place] [id number] [place] MCH (RBC) [Entitic mass] 24.5 pg Low 26.0-34.0 [facility] Comment on above: Order Comment: Speci men Type: BLOOD SPECIMEN Ordering Facility: [facility] Address: [address] [place] [address] Performed By: #### 5 7021-8 #### [facility] CLIA [id number] [address] [place], [place] [id number] [place] MCHC (RBC) [Mass/Vol] 30.7 g/dL Normal 30.5-36.0 [facility] Comment on above: Order Comment: Speci men Type: BLOOD SPECIMEN Ordering Facility: [facility] Address: [address] [place] [address] Performed By: #### 5 7021-8 #### [facility] CLIA [id number] [address] [place] [address] [place] MCV (RBC) [Entitic vol] 79.8 fL Low 80.0-100.0 [facility] Comment on above: Order Comment: Speci men Type: BLOOD SPECIMEN Ordering Facility: [facility] Address: [address] [place] [address] Performed By: #### 5 7021-8 #### [facility] CLIA [id number] [address] [place] [address] [place] Monocytes (Bld) [#/Vol] 0.59 10*3/uL Normal <0.87 [facility] Comment on above: Order Comment: Speci men Type: BLOOD SPECIMEN Ordering Facility: [facility] Address: [address] [place] [address] Performed By: #### 5 7021-8 #### [facility] CLIA [id number] [address] [place], [place] [phone] [place] Monocytes/100 WBC (Bld) 9.4 % Normal [facility] Comment on above: Order Comment: Speci men Type: BLOOD SPECIMEN Ordering Facility: [facility] Address: [address] [place] [address] Performed By: #### 5 7021-8 #### [facility] CLIA [id number] [address] [place] [address] [place] Neutrophils (Bld) [#/Vol] 4.60 10*3/uL Normal 1.45-7.50 [facility] Comment on above: Order Comment: Speci men Type: BLOOD SPECIMEN Ordering Facility: [facility] Address: [address] [place] [address] Performed By: #### 5 7021-8 #### [facility] CLIA [id number] [address] [place] [address] [place] Neutrophils/100 WBC (Bld) 72.8 % Normal [facility] Comment on above: Order Comment: Speci men Type: BLOOD SPECIMEN Ordering Facility: [facility] Address: [address] [place] [address] Performed By: #### 5 7021-8 #### [facility] CLIA [id number] [address] [place] [address] [place] Nucleated RBC (Bld) [#/Vol] Normal [facility] Comment on above: Order Comment: Speci men Type: BLOOD SPECIMEN Ordering Facility: [facility] Address: [facility] [place] [address] Performed By: #### 5 7021-8 #### [facility] CLIA [id number] [address] [place] [address] [place] Nucleated RBC/100 WBC (Bld) [Ratio] Normal [facility] Comment on above: Order Comment: Speci men Type: BLOOD SPECIMEN Ordering Facility: [facility] Address: [address] [place] [address] Performed By: #### 5 7021-8 #### [facility] CLIA [id number] [address] [place] [address] [place] Platelet mean volume (Bld) [Entitic vol] 10.8 fL Normal 9.0-12.7 [facility] Comment on above: Order Comment: Speci men Type: BLOOD SPECIMEN Ordering Facility: [facility] Address: [address] [id number] Performed By: #### 5 7021-8 #### [facility] CLIA [id number] [address] [place] [address] [place] Platelets (Bld) [#/Vol] 216 10*3/uL Normal 150-400 [facility] Comment on above: Order Comment: Speci men Type: BLOOD SPECIMEN Ordering Facility: [facility] Address: [address] [place] [address] Performed By: #### 5 7021-8 #### [facility] CLIA [id number] [address] [place] [address] [facility] RBC (Bld) [#/Vol] 4.16 10*6/uL Normal 3.90-5.20 [facility] Comment on above: Order Comment: Speci men Type: BLOOD SPECIMEN Ordering Facility: [facility] Address: [address] [place] [address] Performed By: #### 5 7021-8 #### [facility] CLIA [id number] [address] [place] [address] [facility] WBC (Bld) [#/Vol] 6.31 10*3/uL Normal 3.70-11.00 [facility] Comment on above: Order Comment: Speci men Type: BLOOD SPECIMEN Ordering Facility: [facility] Address: [address] [place] [address] Performed By: #### 5 7021-8 #### [facility] CLIA [id number] [address] [place], [place] [phone] [facility] Comprehensive metabolic 2000 panelon 01-29-2024 Albumin [Mass/Vol] 3.7 g/dL Low 3.9 - 4.9 g/dL [facility] ALP [Catalytic activity/Vol] 92 U/L 34 - 123 U/L [facility] ALT With P-5'-P [Catalytic activity/Vol] 17 U/L 7 - 38 U/L [facility] Anion gap [Moles/Vol] 13 mmol/L 8 - 15 mmol/L [facility] AST With P-5'-P [Catalytic activity/Vol] 27 U/L 13 - 35 U/L [facility] Bilirubin [Mass/Vol] 0.2 mg/dL 0.2 - 1 .3 mg/dL [facility] Calcium [Mass/Vol] 9.0 mg/dL 8.5 - 10. 2 mg/dL [facility] Chloride [Moles/Vol] 103 mmol/L 98 - 10 7 mmol/L [facility] CO2 [Moles/Vol] 21 mmol/L Low 22 - 30 mmol/L [facility] Creatinine [Mass/Vol] 0.82 mg/dL 0.58 - 0.96 mg/dL [facility] GFR/1.73 sq M.predicted among non-blacks MDRD (S/P/Bld) [Vol rate/Area] 80 mL/min/{1.73_m2} - PINF [facility] Comment on above: Estimated Glomerular Filtration Rate (eGFR) is calculated using the 2020 CKD-EPI creatinine equation. This equation utilizes serum creatinine, sex, and age as parameters. The creatinine assay has traceable calibration to isotope dilution-mass spectrometry. Refer to KDIGO guidelines for clinical interpretation. In patients with unstable renal function, e.g. those with acute kidney injury, the eGFR may not accurately reflect actual GFR. Glucose [Mass/Vol] 97 mg/dL 74 - 99 mg/dL [facility] Comment on above: The [place] Diab[employer] s Association (ADA) provides guidance for cutoff values for fasting glucose and random glucose. The ADA defines fasting as no caloric intake for at least 8 hours. Fasting plasma glucose results between 100 to 125 mg/dL indicate increased risk for diabetes (prediabetes). Fasting plasma glucose results greater than or equal to 126 mg/dL meet the criteria for diagnosis of diabetes. In the absence of unequivocal hyperglycemia, results should be confirmed by repeat testing. In a patient with classic symptoms of hyperglycemia or hyperglycemic crisis, random plasma glucose results greater than or equal to 200 mg/dL meet the criteria for diagnosis of diabetes. Reference: Standards of Medical Care in Diabetes 2016, [place] Diabetes Association. Diabetes Care. 2016.39(Suppl 1). Interpretation and review of laboratory results Abnormal [facility] Potassium [Moles/Vol] 4.3 mmol/L 3.7 - 5.1 mmol/L [facility] Protein [Mass/Vol] 6.5 g/dL 6.3 - 8.0 g/dL [facility] Sodium [Moles/Vol] 137 mmol/L 136 - 144 mmol/L [facility] Urea nitrogen [Mass/Vol] 8 mg/dL 7 - 21 mg/dL [facility] Albumin [Mass/Vol] 3.7 g/dL Low 3.9-4.9 [facility] Comment on above: Order Comment: Speci men Type: BLOOD SPECIMEN Ordering Facility: [facility] Address: [address] [place], [place] [address] [address] Performed By: #### 2 4323-8 #### [facility] CLIA [id number] [address] ALP [Catalytic activity/Vol] 92 U/L Normal 34-123 [facility] Comment on above: Order Comment: Speci men Type: BLOOD SPECIMEN Ordering Facility: [facility] Address: [address] [place] [address] Performed By: #### 2 4323-8 #### [facility] CLIA [id number] [address] [facility] ALT With P-5'-P [Catalytic activity/Vol] 17 U/L Normal 7-38 [facility] Comment on above: Order Comment: Speci men Type: BLOOD SPECIMEN Ordering Facility: [facility] Address: [address] [place] [address] Performed By: #### 2 4323-8 #### [facility] CLIA [id number] [address] Anion gap [Moles/Vol] 13 mmol/L Normal 8-15 [facility] Comment on above: Order Comment: Speci men Type: BLOOD SPECIMEN Ordering Facility: [facility] Address: [address] [place] [address] Performed By: #### 2 4323-8 #### [facility] CLIA [id number] [address] AST With P-5'-P [Catalytic activity/Vol] 27 U/L Normal 13-35 [facility] Comment on above: Order Comment: Speci men Type: BLOOD SPECIMEN Ordering Facility: [facility] Address: [address] [place] [address] Performed By: #### 2 4323-8 #### [facility] CLIA [id number] [address] Bilirubin [Mass/Vol] 0.2 mg/dL Normal 0.2-1.3 [facility] Comment on above: Order Comment: Speci men Type: BLOOD SPECIMEN Ordering Facility: [facility] Address: [address] [place] [address] Performed By: #### 2 4323-8 #### [facility] CLIA [id number] [address] [place] Calcium [Mass/Vol] 9.0 mg/dL Normal 8.5-10.2 [facility] Comment on above: Order Comment: Speci men Type: BLOOD SPECIMEN Ordering Facility: [facility] Address: [address] [place] [address] Performed By: #### 2 4323-8 #### [facility] CLIA [id number] [address] [place] Chloride [Moles/Vol] 103 mmol/L Normal 98-107 [facility] Comment on above: Order Comment: Speci men Type: BLOOD SPECIMEN Ordering Facility: [facility] Address: [address] [place] [address] Performed By: #### 2 4323-8 #### [facility] CLIA [id number] [address] STATES OF [facility] CO2 [Moles/Vol] 21 mmol/L Low 22-30 [facility] Comment on above: Order Comment: Speci men Type: BLOOD SPECIMEN Ordering Facility: [facility] Address: [address] [place] [address] Performed By: #### 2 4323-8 #### [facility] CLIA [id number] [address] [place] Creatinine [Mass/Vol] 0.82 mg/dL Normal 0.58-0.96 [facility] Comment on above: Order Comment: Speci men Type: BLOOD SPECIMEN Ordering Facility: [facility] Address: [address] [place] [address] Performed By: #### 2 4323-8 #### [facility] CLIA [id number] [address] Creatinine and Glomerular filtration rate.predicted panel (S/P/Bld) 80 mL/min/1.73m??? Normal >=60 [facility] Comment on above: Order Comment: Speci men Type: BLOOD SPECIMEN Ordering Facility: [facility] Address: [address] [place] [address] Result Comment: Sonia mated Glomerular Filtration Rate (eGFR) is calculated using the 2020 CKD-EPI creatinine equation. This equation utilizes serum creatinine, sex, and age as parameters. The creatinine assay has traceable calibration to isotope dilution-mass spectrometry. Refer to KDIGO guidelines for clinical interpretation. In patients with unstable renal function, e.g. those with acute kidney injury, the eGFR may not accurately reflect actual GFR. Performed By: #### 2 4323-8 #### [facility] CLIA [id number] 1 [place] [address] [place] Glucose [Mass/Vol] 97 mg/dL Normal 74-99 [facility] Comment on above: Order Comment: Mindy mcfarlane Type: BLOOD SPECIMEN Ordering Facility: [facility] Address: [address] [place] [address] Result Comment: The [place] Diabetes Association (ADA) provides guidance for cutoff values for fasting glucose and random glucose. The ADA defines fasting as no caloric intake for at least 8 hours. Fasting plasma glucose results between 100 to 125 mg/dL indicate increased risk for diabetes (prediabetes). Fasting plasma glucose results greater than or equal to 126 mg/dL meet the criteria for diagnosis of diabetes. In the absence of unequivocal hyperglycemia, results should be confirmed by repeat testing. In a patient with classic symptoms of hyperglycemia or hyperglycemic crisis, random plasma glucose results greater than or equal to 200 mg/dL meet the criteria for diagnosis of diabetes. Reference: Standards of Medical Care in Diabetes 2016, [place] Diabetes Association. Diabetes Care. 2016.39(Suppl 1). Performed By: #### 2 4323-8 #### [facility] CLIA [id number] 1 [place] [address] [place] Potassium [Moles/Vol] 4.3 mmol/L Normal 3.7-5.1 [facility] Comment on above: Order Comment: Mindy mcfarlane Type: BLOOD SPECIMEN Ordering Facility: [facility] Address: [address] [id number] Performed By: #### 2 4323-8 #### [facility] CLIA [id number] [address] Protein [Mass/Vol] 6.5 g/dL Normal 6.3-8.0 [facility] Comment on above: Order Comment: Mindy mcfarlane Type: BLOOD SPECIMEN Ordering Facility: [facility] Address: [address] [place] [address] Performed By: #### 2 4323-8 #### [facility] CLIA [id number] [address] Sodium [Moles/Vol] 137 mmol/L Normal 136-144 [facility] Comment on above: Order Comment: Mindy mcfarlane Type: BLOOD SPECIMEN Ordering Facility: [facility] Address: [address] [place] [address] Performed By: #### 2 4323-8 #### [facility] CLIA [id number] [address] Urea nitrogen [Mass/Vol] 8 mg/dL Normal 7-21 [facility] Comment on above: Order Comment: Specaiden mcfarlane Type: BLOOD SPECIMEN Ordering Facility: [facility] Address: [address] [place] [address] Performed By: #### 2 4323-8 #### [facility] CLIA [id number] [address] CNPNon 12-31-2023 CNPN Telephone (RHBATH) -------- MARIMAR WANG ([id number]) 1960 F Date Time Provider Department 12/31/23 [facility] During your visit today, we recorded the following information about you: Rosio Buck LPN 12/31/2023 3:11 PM Signed Patient left vm stating she contacted her pharmacy to get a refill on Arava and they told her the prescription was cancelled. CLIVE Levi Niharika, MD 12/31/2023 3:25 PM Signed Addended by: JENNIFER ARIAS on: 12/31/2023 03:25 PM Modules accepted: Orders Allergies As of Date: 12/31/2023 Noted Allergy Reaction CYMBALTA (DULOXETINE) 11/21/2023 5 - Intolerance Comments: Headaches NSAIDS (NON-STEROIDAL ANTI-INFLAM*04/16/2005 10 - Anaphylaxis Comments: Had anaphylactic reaction to Aleve VIBRAMYCIN (DOXYCYCLINE CALCIUM) 04/16/2005 10 - Anaphylaxis DILAUDID (HYDROMORPHONE (BULK)) 11/21/2023 11 - Vomiting MORPHINE 11/21/2023 11 - Vomiting HORSE/EQUINE CONTAINING PRODUCTS 11/28/2023 7 - Swelling VICODIN (HYDROCODONE-ACETAMINOPH E*11/21/2023 11 - Vomiting Comments: Can take if given antiemetic at same time Date Reviewed: 12/31/2023 Reviewed by: Arlene Barroso, RN - Fully Assessed Reason for Visit: Patient Question [1477] Visit Diagnoses:High risk medication use [Z79.899] Rheumatoid arthritis involving multiple sites with positive rheumatoid factor (HCC) [M05.79] Localized osteoporosis without current pathological fracture [M81.6] Order(s):leflunomide (ARAVA) 20 mg tabletTake 1 tablet by mouth once daily.Disp: 90 tabletRfl: 0 Prescriptions as of 12/31/2023 - leflunomide (ARAVA) 20 mg tablet Take 1 tablet by mouth once daily. - cholecalciferol, Vitamin D3, (VITAMIN D3) 1,250 mcg (50,000 unit) cap capsule Take 1 capsule by mouth every other week. - atorvastatin (LIPITOR) 80 mg tablet Take 80 mg by mouth once daily. - newgoq-bstllzyu-rvlbujw (CREON 36) 36,000-114,000- 180,000 unit delayed release capsule Take by mouth with meals and at bedtime. With snacks also - furosemide (LASIX) 20 mg tablet Take 20 mg by mouth once daily. - budesonide, enteric coated (ENTOCORT EC) 3 mg 24 hr capsule Take 2 capsules by mouth every afternoon. - pantoprazole DR (PROTONIX) 40 mg tablet Take 40 mg by mouth once daily. - dicyclomine (BENTYL) 20 mg tablet Take 20 mg by mouth twice daily. - VITAMIN B-12 1,000 mcg tab DISSOLVE 1 TABLET BY MOUTH ONCE DAILY - amLODIPine (NORVASC) 5 mg tablet Take by mouth. Takes 7.5 mg each day - promethazine (PHENERGAN) 25 mg tablet Take 1 tablet by mouth every 6 hours as needed for nausea/vomiting. - clopidogrel (PLAVIX) 75 mg tablet Take 75 mg by mouth once daily. - FLUoxetine (PROZAC) 20 mg capsule Take 3 capsules by mouth once daily. - simvastatin (ZOCOR) 40 mg tablet Take 1 tablet by mouth daily at bedtime. - abatacept/maltose (ORENCIA, WITH MALTOSE, INTRAVENOUS) Inject intravenously. - albuterol HFA (VENTOLIN HFA) 90 mcg/actuation inhaler Inhale 2 Puffs as instructed every 4 hours as needed for wheezing/shortness of breath. - buPROPion XL (WELLBUTRIN XL) 150 mg 24 hr tablet Take 1 tablet by mouth once daily. - mometasone (NASONEX) 50 mcg/actuation nasal spray Use 2 Sprays in the nose once daily. Rinse mouth after use. - albuterol (PROVENTIL) 2.5 mg /3 mL (0.083 %) nebulizer solution Use 3 mL via nebulizer every 4 hours as needed for wheezing/shortness of breath. Use over 5-15minutes. - hyoscyamine (LEVSIN) 0.125 mg tablet Take 1 tablet by mouth every 6 hours as needed. - acetaminophen (TYLENOL) 325 mg tablet Take by mouth every 6 hours as needed. - albuterol (PROVENTIL) 2.5 mg /3 mL (0.083 %) nebulizer solution Use 3 mL via nebulizer every 6 hours as needed for Wheezing/Shortness of Breath. - >Nebulizer For Home Nebulizer for home use. Diagnosis: Moderate persistent asthma with acute exacerbation and pneumonia Meds Comments as of 02/06/2017: Herlinda use pharmacy [facility] [place] [address] Problem List As Of Date 12/31/2023 Noted Resolved Fracture of triquetrum of left wrist, closed [S*02/14/2012 07/31/2019 Rheumatoid arthritis involving multiple sites (*06/12/2012 Fibromyalgia [M79.7] 03/11/2014 Depression [F32.A] 03/11/2014 Asthma [J45.909] 03/11/2014 Abdominal pain [R10.9] 03/11/2014 04/22/2014 Mycoplasma pneumonia [J15.7] 03/23/2014 06/03/2014 Carotid artery disease (HCC) [I77.9] 04/22/2014 07/31/2019 Hyperlipidemia with target LDL less than 130 [E*06/03/2014 Insomnia [G47.00] 09/03/2014 Hip pain [M25.559] 09/30/2014 Thoracic or lumbosacral neuritis or radiculitis*09/30/2014 Piriformis syndrome [G57.00] 09/30/2014 Intermittent palpitations [R00.2] 12/13/2014 PVC's (premature ventricular contractions) [I49*01/10/2015 Anemia [D64.9] 03/01/2015 Iron 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 blood los*03/09/2015 Iron malabsorption [K90.9] 03/18/2015 (more content not included)... Normal [facility] PULMONARY FUNCTION STUDYon 0 12-04-2023 PULMONARY FUNCTION STUDY [facility] PULMONARY FUNCTION TEST NAME ACCOUNT SEX AGE VISIT DATE ROOM PT MEDICAL REC. # NUMBER TYPE MARIMAR WANG [id number] F 63 10/16/2023 2 L [id number] DATE OF : 1960 DICTATING PHYSICIAN: Ernesto Carrillo The FEV1 is 1.89 liters or 83% of predicted. The FEV1 ratio is 82%. No significant change noted with bronchodilators. Total lung capacity is very minimally decreased at 3.7 liter or 78% of predicted. The RV/TLC ratio is normal. Diffusion capacity is normal. IMPRESSION: Very minimal and borderline restrictive abnormality. Dictated By: Ernesto Carrillo MD 10/24/23 16:59 JOB #: [id number] Transcribed By: am 10/25/23 07:34 Electronically signed by: Mik Carrillo M.D. 12/04/23 14:22 MARIMAR WANG Page 1 of 1 Normal [facility] 25-hydroxyvitamin D3 [Mass/V ol]on 11-20-2023 Interpretation and review of laboratory results Normal [facility] C-REACTIVE PROTEINon 024 CRP [Mass/Vol] mg/dL [facility] - 0.9 mg/dL [facility] CBC W Auto Differential pane l (Bld)on 11-20-2023 Basophils (Bld) [#/Vol] 0.05 10*3/uL [facility] Basophils/100 WBC (Bld) 0.7 % C [facility] Differential cell count method Nom (Bld) Auto [facility] Eosinophils (Bld) [#/Vol] 0.12 10*3/uL [facility] Eosinophils/100 WBC (Bld) 1.7 % [facility] Erythrocyte distribution width (RBC) [Ratio] 14.3 % 11.5 - 15.0 % [facility] Hematocrit (Bld) [Volume fraction] 34.3 % Low 36.0 - 46.0 % [facility] Hemoglobin (Bld) [Mass/Vol] 10.6 g/dL Low 11.5 - 15.5 g/dL [facility] Immature granulocytes (Bld) [#/Vol] [facility] Immature granulocytes/100 WBC (Bld) 0.1 % [facility] Interpretation and review of laboratory results Abnormal [facility] Lymphocytes (Bld) [#/Vol] 1.62 10*3/uL [facility] Lymphocytes/100 WBC (Bld) 23.3 % [facility] MCH (RBC) [Entitic mass] 26.0 pg 26.0 - 34.0 pg [facility] MCHC (RBC) [Mass/Vol] 30.9 g/dL 30.5 - 36.0 g/dL [facility] MCV (RBC) [Entitic vol] 84.3 fL 80.0 - 100.0 fL [facility] Monocytes (Bld) [#/Vol] 0.52 10*3/uL [facility] Monocytes/100 WBC (Bld) 7.5 % C [facility] Neutrophils (Bld) [#/Vol] 4.63 10*3/uL [facility] Neutrophils/100 WBC (Bld) 66.7 % [facility] Nucleated RBC (Bld) [#/Vol] [facility] Nucleated RBC/100 WBC (Bld) [Ratio] [facility] Platelet mean volume (Bld) [Entitic vol] 11.1 fL 9.0 - 12.7 fL [facility] Platelets (Bld) [#/Vol] 244 10*3/uL [facility] RBC (Bld) [#/Vol] 4.07 10*6/uL 3.90 - 5.2 0 m/uL [facility] WBC (Bld) [#/Vol] 6.95 10*3/uL [facility] CRP [Mass/Vol]on 11-20-2023 Interpretation and review of laboratory results Normal [facility] Comprehensive metabolic 2000 panelon 11-20-2023 Albumin [Mass/Vol] 4.0 g/dL 3.9 - 4.9 g/dL [facility] ALP [Catalytic activity/Vol] 95 U/L 34 - 123 U/L [facility] ALT With P-5'-P [Catalytic activity/Vol] 12 U/L 7 - 38 U/L [facility] Anion gap [Moles/Vol] 11 mmol/L 9 - 18 mmol/L [facility] AST With P-5'-P [Catalytic activity/Vol] 20 U/L 13 - 35 U/L [facility] Bilirubin [Mass/Vol] 0.2 mg/dL 0.2 - 1 .3 mg/dL [facility] Calcium [Mass/Vol] 8.9 mg/dL 8.5 - 10. 2 mg/dL [facility] Chloride [Moles/Vol] 103 mmol/L 97 - 10 5 mmol/L [facility] CO2 [Moles/Vol] 23 mmol/L 22 - 30 mmol/L [facility] Creatinine [Mass/Vol] 0.70 mg/dL 0.58 - 0.96 mg/dL [facility] GFR/1.73 sq M.predicted among non-blacks MDRD (S/P/Bld) [Vol rate/Area] 97 mL/min/{1.73_m2} - PINF [facility] Comment on above: Estimated Glomerular Filtration Rate (eGFR) is calculated using the 2020 CKD-EPI creatinine equation. This equation utilizes serum creatinine, sex, and age as parameters. The creatinine assay has traceable calibration to isotope dilution-mass spectrometry. Refer to KDIGO guidelines for clinical interpretation. In patients with unstable renal function, e.g. those with acute kidney injury, the eGFR may not accurately reflect actual GFR. Glucose [Mass/Vol] 119 mg/dL High 74 - 99 mg/dL [facility] Comment on above: The [place] Diab[employer] s Association (ADA) provides guidance for cutoff values for fasting glucose and random glucose. The ADA defines fasting as no caloric intake for at least 8 hours. Fasting plasma glucose results between 100 to 125 mg/dL indicate increased risk for diabetes (prediabetes). Fasting plasma glucose results greater than or equal to 126 mg/dL meet the criteria for diagnosis of diabetes. In the absence of unequivocal hyperglycemia, results should be confirmed by repeat testing. In a patient with classic symptoms of hyperglycemia or hyperglycemic crisis, random plasma glucose results greater than or equal to 200 mg/dL meet the criteria for diagnosis of diabetes. Reference: Standards of Medical Care in Diabetes 2016, [place] [employer]. Diabetes Care. 2016.39(Suppl 1). Interpretation and review of laboratory results Abnormal [facility] Potassium [Moles/Vol] 3.6 mmol/L Low 3.7 - 5.1 mmol/L [facility] Protein [Mass/Vol] 6.7 g/dL 6.3 - 8.0 g/dL [facility] Sodium [Moles/Vol] 137 mmol/L 136 - 144 mmol/L [facility] Urea nitrogen [Mass/Vol] 9 mg/dL 7 - 21 mg/dL [facility] ESR Westergren method (Bld) [Velocity]on 11-20-2023 ESR (Bld) [Velocity] 20 mm/h [facility] Interpretation and review of laboratory results Normal [facility] No Panel Informationon 11-19 [facility] VITAMIN D 25 HYDROXYon 11-19 25-hydroxyvitamin D3 [Mass/Vol] 62.6 ng/mL 30.0 - PINF ng/mL [facility] Comment on above: Classification of 25 [place] Vitamin D status: Deficiency: <= 20.0 ng/ml. Insufficiency: 21.0-29.0 ng/ml. Sufficiency: >= 30.0 ng/ml. CMP with eGFRon 09-26-2023 /SGPT 17 Normal [facility] Comment on above: Performed By: #### 2 [id number] #### [facility],[address] [place] [address] AGE 63 years Normal [facility] Comment on above: Performed By: #### 2 [id number] #### [facility],[address] [place] [address] 70522 Albumin [Mass/Vol] 3.0 g/dL Low 3.4 - 5.0 [facility] Comment on above: Performed By: #### 2 57062 #### [facility],[address] [place] [address] 40841 Albumin/Globulin [Mass ratio] 0.8 {ratio} Low 0.9 - 1.6 [facility] Comment on above: Performed By: #### 2 50263 #### [facility],[address] [place] [address] 49794 ALK PHOS 81 U/L Normal 46 - 116 [facility] Comment on above: Performed By: #### 2 60327 #### [facility],[address] [place] [address] 13366 Anion gap [Moles/Vol] 9 mmol/L Low 10 - 20 [facility] Comment on above: Performed By: #### 2 35446 #### [facility],[address] [place] [address] 77263 AST [Catalytic activity/Vol] 20 U/L Normal 13 - 39 [facility] Comment on above: Performed By: #### 2 [id number] #### [facility],[address] [place] [address] 53990 B/C RATIO 16 ratio Normal 0 - 30 [facility] Comment on above: Performed By: #### 2 85657 #### [facility],[address] [place] [address] 25789 Bilirubin [Mass/Vol] 0.3 mg/dL Normal 0.2 - 1.0 [facility] Comment on above: Performed By: #### 2 43734 #### [facility],[address] [place] [address] 78047 Calcium [Mass/Vol] 9.0 mg/dL Normal 8.5 - 10.1 [facility] Comment on above: Performed By: #### 2 61472 #### [facility],[address] [place] [address] 18844 Chloride [Moles/Vol] 106 mmol/L Normal 98 - 107 [facility] Comment on above: Performed By: #### 2 58885 #### [facility],[address] [place] [address] 04585 CMP with eGFR Normal [facility] Comment on above: Result Comment: COMP REHENSIVE METABOLIC PANEL Performed By: #### 2 95153 #### [facility],[address] [place] [address] 95512 CO2 [Moles/Vol] 27.4 mmol/L Normal 21.0 - 32.0 [facility] Comment on above: Performed By: #### 2 41106 #### [facility],[address] [place] [address] 06726 Creatinine [Mass/Vol] 0.82 mg/dL Normal 0.55 - 1.02 [facility] Comment on above: Performed By: #### 2 53314 #### [facility],[address] [place] [address] 12592 GFR/1.73 sq M.predicted among non-blacks MDRD (S/P/Bld) [Vol rate/Area] mL/min/{1.73_m2} Normal 60 - 999 [facility] Comment on above: Performed By: #### 2 46195 #### [facility],[address] [place] [address] 89932 Result Comment: ACCO RDING TO THE NATIONAL KIDNEY DISEASE EDUCATION PROGRAM(NKDE), A NORMAL eGFR IS A VALUE GREATER THAN OR EQUAL TO 60 ML/MIN/1.73 SQ METERS. CHRONIC KIDNEY DISEASE: <60mL/MIN/1.73 SQ METERS KIDNEY FAILURE: <15mL/MIN/1.73 SQ METERS THIS TEST SHOULD ONLY BE USED FOR PATIENTS 18 YEARS OF AGE AND OLDER. Globulin (S) [Mass/Vol] 3.8 g/dL Normal 1.5 - 3.[address] [facility] Comment on above: Performed By: #### 2 24584 #### [facility],[address] [place] [address] 33669 Glucose [Mass/Vol] 103 mg/dL Normal 74 - 106 [facility] Comment on above: Performed By: #### 2 83047 #### [facility],[address] [place] [address] 02148 Potassium [Moles/Vol] 4.1 mmol/L Normal 3.5 - 5.1 [facility] Comment on above: Performed By: #### 2 43134 #### [facility],[address] [place] [address] 36306 Protein [Mass/Vol] 6.8 g/dL Normal 6.4 - 8.2 [facility] Comment on above: Performed By: #### 2 71071 #### [facility],[address] [place] [address] 73719 Sodium [Moles/Vol] 138 mmol/L Normal 136 - 145 [facility] Comment on above: Performed By: #### 2 04396 #### [facility],[address] [place] [address] 66076 Urea nitrogen [Mass/Vol] 13 mg/dL Normal 7 - 18 [facility] Comment on above: Performed By: #### 2 71662 #### [facility],[address] [place] [address] 02125 HEMOGLOBIN A1C (POM)on Glucose [Mass/Vol] 111.2 mg/dL High 0.0 - 0.0 [facility] Comment on above: Result Comment: BLDo HEMOGLOBIN A1C REFERENCE RANGESBLDo Suggested Diagnosis HbA1c(%) HbA1C (mmol/mol Diabetic >/=6.5 >/=48 Prediabetes 5.7 - 6.4 39 - 47 Normal <5.7 <39 Performed By: #### 2 57977 #### [facility],[address] [place] [address] 70174 HbA1c (Bld) [Mass fraction] 5.5 % Normal 0.0 - 6.5 [facility] Comment on above: Performed By: #### 2 27058 #### [facility],[address] [place] [address] 22757 LIPID PROFILEon 09-26-2023 Cholesterol [Mass/Vol] 213 mg/dL Normal 0 - 240 [facility] Comment on above: Performed By: #### 2 99955 #### [facility],[address] [place] [address] 50156 Cholesterol in HDL [Mass/Vol] 83 mg/dL High 40 - 60 [facility] Comment on above: Performed By: #### 2 80180 #### [facility],[address] [place] [address] 23361 Cholesterol in LDL [Mass/Vol] 119 mg/dL Normal 0 - 129 [facility] Comment on above: Performed By: #### 2 92740 #### [facility],[address] [place] [address] 69271 Cholesterol.total/Wendy sterol in HDL [Mass ratio] 2.6 {ratio} Normal 0.0 - 5.0 [facility] Comment on above: Performed By: #### 2 63710 #### [facility],[address] [place] [address] 04713 Lipid 1996 panel Normal [facility] Comment on above: Result Comment: LIPI D PROFILE Performed By: #### 2 53967 #### [facility],[address] [place] [address] 81247 Triglyceride [Mass/Vol] 57 mg/dL Normal 0 - [address] [facility] Comment on above: Performed By: #### 2 68166 #### [facility],[address] [place] [address] 28398 MAGNESIUMon 09-26-2023 Magnesium [Mass/Vol] 2.1 mg/dL Normal 1.8 - 2.4 [facility] Comment on above: Performed By: #### 2 09855 #### [facility],[address] [place] [address] 71553 NT-proBNPon 09-19-2023 Natriuretic peptide B (Bld) [Mass/Vol] 511 pg/mL High 0 - 125 [facility] Comment on above: Performed By: #### 2 43220 #### [facility],[address] [place] [address] 52622 Giardia lamblia ag stool EIA Ordered By: Andrez Pitts on 09-06-2023 G. lamblia Ag IA Ql (Stl) Negative Negative [facility] Comment on above: Performed at: BN - L [address] [id number] Director: Beverley Cleveland MD, Phone: [phone] at: [facility] [id number] Director: Emmanuel Osorio PhD, Phone: [phone] No Panel InformationOrdered By: Andrez Pitts on 09-06-2023 Miscellaneous Test See comment [facility] Comment on above: TEST RESULTS LIMITSA [id number], Fecal, Qn A, 0.173 mg/g 0.041-0.336 CommentsA: Results of this test are labeled for research purposes only by the assay's microfilm camera operator. The performance characteristics of this assay have not been established by the microfilm camera operator. The result should not be used for treatment or for diagnostic purposes without confirmation of the diagnosis by anothermedically established diagnostic product or procedure. The performance characteristics were determined by [employer]. TESTING PERFORMED AT [facility] ORIGINAL REPORT ON FILE IN LAB CONTAINS ADDITIONAL TEST SITE INFORMATION. Stool Calprotectin 81 ug/g 0-120 [facility] Comment on above: Concentration Interp retation Follow-Up< 5 - 50 ug/g Normal None>50 -120 ug/g Borderline Re-evaluate in 4-6 weeks >120 ug/g Abnormal Repeat as clinically indicatedPerformed at: - [facility] [address] [id number] Director: Beverley Cleveland MD, Phone: [phone] Ova and parasitesOrdered By: Andrez Pitts on 09-06-2023 Ova and parasites identified LM Nom (Unsp spec) [facility] Stool pancreatic elastase me asurement (mass/mass)Ordered By: Andrez Pitts on 09-06-2023 Elastase.pancreatic (Stl) [Mass/Mass] 76 >200 [facility] Comment on above: Result Units: ug Christina st./gResults verified by repeat testing Severe Pancreatic Insufficiency: <100 Moderate Pancreatic Insufficiency: 100 - 200 Normal: >200 Basophil percentageOrdered B y: Andrez Pitts on 07-25-2023 Basophil percentage < 1.0 mg/dL 0.55-1.02 [facility] No Panel InformationOrdered By: Andrez Pitts on 07-25-2023 Bedside Estimated GFR (eGFR) > 60.0000 mL/min >60 [facility] Chocolate RASTOrdered By: Ra ny Pitts on 07-05-2023 Chocolate IgE Qn (S) <0.10 kU/L Class 0 [facility] Hemoglobin in reticulocytes (mass per reticulocyte)Ordered By: Andrez Pitts on 07-05-2023 Hemoglobin (Reticulocytes) [Entitic mass] 31.7 pg 30-35 [facility] Iron measurement (mass/mass) Ordered By: Andrez Pitts on 07-05-2023 Iron (Unsp spec) [Mass/Mass] 46 ug/dL 50-170 [facility] Laboratory - Miscellaneous t estsOrdered By: Andrez Pitts on 07-05-2023 Service comment (Unsp spec) [Interp] Comment . [facility] Comment on above: Levels of Specific I gE Class Description of Class ----- < 0.10 0 Negative 0.10 - 0.31 0/I Equivocal/Low 0.32 - 0.55 I Low 0.56 - 1.40 II Moderate 1.41 - 3.90 III High 3.91 - 19.00 IV Very High 19.01 - 100.00 V Very High >100.00 [facility] No Panel InformationOrdered By: Andrez Friend on 07-05-2023 Hepatitis A IgM Antibody Negative Negative [facility] Hepatitis B Core IgM Antibody Negative Negative [facility] Hepatitis C Antibody (EIA) Non-Reactive Non Reactive [facility] Hepatitis C Antibody Comment Comment . [facility] Comment on above: Not infected with HC V unless early or acute infection issuspected (which may be delayed in an immunocompromisedindividual), or other evidence exists to indicate HCVinfection. Immature Reticulocyte Fraction 11.20 % 3.00-15.90 [facility] Immunoglobulin E 10 IU/mL 6-495 [facility] Comment on above: Performed at: [employer] [address] [id number] Director: Emmanuel Osorio PhD, Phone: [phone] at: [facility] [id number] Director: Beverley Cleveland MD, Phone: [phone] Mussel Allergen IgE Antibody <0.10 kU/L Class 0 [facility] Reticulocyte Count 1.61 % 0.5-1.5 [facility] Shrimp Allergen <0.10 kU/L Class 0 [facility] Total Iron Binding Capacity 311 ug/dL 250-450 [facility] Qualitative QuantiFERON-TB g old in tube testOrdered By: Andrez Pitts on 07-05-2023 M. tuberculosis tuberculin stim IFN-g Ql (Bld) See comment [facility] Comment on above: TEST RESULTS LIMITSQ FT-TB Plus (Client Incubated)QuantiFERON CriteriaQuantiFERON-TB Gold Plus is a qualitative indirect test forM tuberculosis infection (including disease) and is intended for use in conjunction with risk assessment, radiography, and other medical and diagnostic evaluations. The QuantiFERON-TB Gold Plus result is determined by subtracting the Nil value from either TB antigen (Ag) value. The Mitogen tube serves as a control for the test.QuantiFERON TB1 Ag Value 0.03 IU/mLQuantiFERON TB2 Ag Value 0.01 IU/mLQuantiFERON Nil Value 0.00 IU/mLQuantiFERON Mitogen Value >10.00 IU/mLQuantiFERON-TB Gold Plus Negative NegativeNo response to M tuberculosis antigens detected.Infection with M tuberculosis is unlikely, but high riskindividuals should be considered for additional testing(ATS/IDSA/CDC Clinical Practice Guidelines, 2017). Thereference range is an Antigen minus Nil result of <0.35 IU/mL.The specimen received for QuantiFERON testing was incubated by the ordering institution. Specific procedures outlined in our Directory of Services and in the package insert for the QuantiFERON Gold (In Tube) test must be followed to enable for proper stimulation of cells for the production of interferon gamma.Chemiluminescence immunoassay methodology TESTING PERFORMED AT [facility]. ORIGINAL REPORT ON FILE IN LAB CONTAINS ADDITIONAL TEST SITE INFORMATION. Previous reported result: Edited by: EULA on 07/10/23:1950 AMENDED REPORT 07/10/231950 QFT TB1+ AG PAULA previously reported as: TEST RESULTS LIMITSQFT-TB Plus (Client Incubated)QuantiFERON CriteriaQuantiFERON-TB Gold Plus is a qualitative indirect test forM tuberculosis infection (including disease) and is intended for use in conjunction with risk assessment, radiography, and other medical and diagnostic evaluations. The QuantiFERON-TB Gold Plus result is determined by subtracting the Nil value from either TB antigen (Ag) value. The Mitogen tube serves as a control for the test.QuantiFERON TB1 Ag Value 0.03 IU/mLQuantiFERON TB2 Ag Value 0.01 IU/mLQuantiFERON Nil Value 0.00 IU/mLQuantiFERON Mitogen Value >10.00 IU/mLQuantiFERON-TB Gold Plus Negative NegativeNo response to M tuberculosis antigens detected.Infection with M tuberculosis is unlikely, but high riskindividuals should be considered for additional testing(ATS/IDSA/CDC Clinical Practice Guidelines, 2017). Thereference range is an Antigen minus Nil result of <0.35 IU/mL.The specimen received for QuantiFERON testing was incubated by the ordering institution. Specific procedures outlined in our Directory of Services and in the package insert for the QuantiFERON Gold (In Tube) test must be followed to enable for proper stimulation of cells for the production of interferon gamma.Chemiluminescence immunoassay methodology TESTING PERFORMED AT [facility]. ORIGINAL REPORT ON FILE IN LAB CONTAINS ADDITIONAL TEST SITE INFORMATION. Serum beef IgE antibody assa y (units/volume)Ordered By: Andrez Pitts on 07-05-2023 Beef IgE Qn (S) <0.10 kU/L Class 0 [facility] Serum codfish IgE antibody a ssay (units/volume)Ordered By: Andrez Pitts on 07-05-2023 Codfish IgE Qn (S) <0.10 kU/L Class 0 [facility] Serum corn IgE antibody assa y (units/volume)Ordered By: Andrez Pitts on 07-05-2023 [place] IgE Qn (S) <0.10 kU/L Class 0 [facility] Serum cow milk IgE antibody assay (units/volume)Ordered By: Andrez Pitts on 07-05-2023 Cow milk IgE Qn (S) <0.10 kU/L Class 0 [facility] Serum or plasma C reactive p rotein measurement (mass/volume)Ordered By: Andrez Pitts on 07-05-2023 CRP [Mass/Vol] mg/L 0.0-3.0 [facility] Comment on above: C-Reactive Protein ( CRP) provides useful information for thediagnosis, therapy and monitoring of inflammatory processesand associated diseases. For the evaluation of Relative Riskfor Cardiovascular Disease, a High Sensitivity CRP (HSCRP)should be ordered. Serum or plasma IgA measurem ent (mass/volume)Ordered By: Andrez Pitts on 07-05-2023 IgA [Mass/Vol] 106 mg/dL 87-352 [facility] Serum or plasma IgG measurem ent (mass/volume)Ordered By: Andrez Pitts on 07-05-2023 IgG [Mass/Vol] 967 mg/dL [phone] [facility] Serum or plasma IgM measurem ent (mass/volume)Ordered By: Andrez Pitts on 07-05-2023 IgM [Mass/Vol] 54 mg/dL 26-217 [facility] Serum or plasma ferritin anastacio surement (mass/volume)Ordered By: Andrez Pitts on 07-05-2023 Ferritin [Mass/Vol] 63 ng/mL 8-252 [facility] Serum or plasma hepatitis B virus surface antigen detection by immunoassayOrdered By: Andrez Pitts on 07-05-2023 HBV surface Ag IA Ql Negative Negative [facility] Serum or plasma iron saturat ion measurement (mass fraction)Ordered By: Andrez Pitts on 07-05-2023 Iron saturation [Mass fraction] 14.8 % 15.0-55.0 [facility] Serum peanut IgE antibody as say (units/volume)Ordered By: Andrez Pitts on 07-05-2023 Peanut IgE Qn (S) <0.10 kU/L Class 0 [facility] Serum pork IgE antibody assa y (units/volume)Ordered By: Andrez Pitts on 07-05-2023 Pork IgE Qn (S) <0.10 kU/L Class 0 [facility] Serum salmon IgE antibody as say (units/volume)Ordered By: Andrez Pitts on 07-05-2023 [place] IgE Qn (S) <0.10 kU/L Class 0 [facility] Serum soybean IgE antibody a ssay (units/volume)Ordered By: Andrez Pitts on 07-05-2023 Soybean IgE Qn (S) <0.10 kU/L Class 0 [facility] Serum tuna IgE antibody assa y (units/volume)Ordered By: Andrez Pitts on 07-05-2023 Tuna IgE Qn (S) <0.10 kU/L Class 0 [facility] Serum wheat IgE antibody ass ay (units/volume)Ordered By: Andrez Pitts on 07-05-2023 Wheat IgE Qn (S) <0.10 kU/L Class 0 [facility] Serum whole egg IgE antibody assay (units/volume)Ordered By: Andrez iPtts on 07-05-2023 Whole Egg IgE Qn (S) <0.10 kU/L Class 0 [facility] Comment on above: Performed at: [address] [id number] Director: Beverley Cleveland MD, Phone: [phone] Thin prep Papanicolaou smear with manual screeningOrdered By: Andrez Pitts on 07-05-2023 Thin prep Papanicolaou smear with manual screening Not Reportable [facility] C-REACTIVE PROTEIN (CRP)on 0 04-25-2023 CRP [Mass/Vol] 0.4 mg/dL <0.9 mg/dL [facility] CBC panel Auto (Bld)on 04-25 Erythrocyte distribution width (RBC) [Ratio] 14.0 % 11.5 - 15.0 % [facility] Hematocrit (Bld) [Volume fraction] 38.4 % 36.0 - 46.0 % [facility] Hemoglobin (Bld) [Mass/Vol] 12.0 g/dL 11.5 - 15.5 g/dL [facility] MCH (RBC) [Entitic mass] 27.1 pg 26.0 - 34.0 pg [facility] MCHC (RBC) [Mass/Vol] 31.3 g/dL 30.5 - 36.0 g/dL [facility] MCV (RBC) [Entitic vol] 86.7 fL 80.0 - 100.0 fL [facility] Nucleated RBC (Bld) [#/Vol] <0.01 k/uL [facility] Platelet mean volume (Bld) [Entitic vol] 12.3 fL 9.0 - 12.7 fL [facility] Platelets (Bld) [#/Vol] 263 10*3/uL 150 - 400 k/uL [facility] RBC (Bld) [#/Vol] 4.43 10*6/uL 3.90 - 5.2 0 m/uL [facility] WBC (Bld) [#/Vol] 6.72 10*3/uL 3.70 - 11. 00 k/uL [facility] CREATININE BLDon 04-25-2023 Creatinine [Mass/Vol] 0.80 mg/dL 0.60 - 1.30 mg/dL [facility] Estimated Glomerular Filtration Rate 82 mL/min/1.73m >=60 mL/min/1.73m [facility] Comprehensive metabolic 2000 panelon 04-25-2023 Albumin [Mass/Vol] 4.0 g/dL 3.9 - 4.9 g/dL [facility] ALP [Catalytic activity/Vol] 94 U/L 34 - 123 U/L [facility] ALT With P-5'-P [Catalytic activity/Vol] 9 U/L 7 - 38 U/L [facility] Anion gap [Moles/Vol] 13 mmol/L 9 - 18 mmol/L [facility] AST With P-5'-P [Catalytic activity/Vol] 17 U/L 13 - 35 U/L [facility] Bilirubin [Mass/Vol] 0.2 mg/dL 0.2 - 1 .3 mg/dL [facility] Calcium [Mass/Vol] 9.2 mg/dL 8.5 - 10. 2 mg/dL [facility] Chloride [Moles/Vol] 104 mmol/L 97 - 10 5 mmol/L [facility] CO2 [Moles/Vol] 21 mmol/L Low 22 - 30 mmol/L [facility] Creatinine [Mass/Vol] 0.80 mg/dL 0.58 - 0.96 mg/dL [facility] Estimated Glomerular Filtration Rate 82 mL/min/1.73m >=60 mL/min/1.73m [facility] Glucose [Mass/Vol] 159 mg/dL High 74 - 99 mg/dL [facility] Potassium [Moles/Vol] 4.1 mmol/L 3.7 - 5.1 mmol/L [facility] Protein [Mass/Vol] 6.2 g/dL Low 6.3 - 8.0 g/dL [facility] Sodium [Moles/Vol] 138 mmol/L 136 - 144 mmol/L [facility] Urea nitrogen [Mass/Vol] 9 mg/dL 7 - 21 mg/dL [facility] [facility] ESR Westergren method (Bld) [Velocity]on 04-25-2023 ESR (Bld) [Velocity] 26 mm/h High 0 - 20 mm/hr [facility] HBV surface Ab Ql (S)on 03-30 HBV surface Ab Qn (S) [facility] HEP B SURF ABon 04-25-2023 HBV surface Ab Ql (S) Negative [facility] HEP B SURF AG SCRNon 023 HBV surface Ag Ql (S) Non-Reactive Nonreactive [facility] HEPATITIS C ANTIBODY IA WITH CONFIRMATIONon 04-25-2023 HCV Ab Ql (S) Non-Reactive Nonreactive [facility] VITAMIN D 25 HYDROXYon 04-25 25-hydroxyvitamin D3 [Mass/Vol] 89.2 ng/mL >=30.0 ng/mL [facility] Basophil percentageOrdered B y: Michael Rawls on 01-24-2023 Chloride [Moles/Vol] 109 mmol/L 98-107 [facility] Glucose [Mass/Vol] 138 mg/dL 74-106 [facility] Comment on above: Fasting Glucose resu lt greater than or equal to 126 mg/dL suggests DIABETES MELLITUS per A.D.A. criteria. Potassium [Moles/Vol] 4.3 mmol/L 3.5-5.1 [facility] Sodium [Moles/Vol] 135 mmol/L 136-145 [facility] WBC (Bld) [#/Vol] 11.2 10*3/uL 4.4-11.0 [facility] Blood erythrocytes count (nu mber/volume)Ordered By: Michael Rawls on 01-24-2023 RBC (Bld) [#/Vol] 3.40 10*6/uL 4.2-5.4 [facility] Blood hemoglobin measurement (mass/volume)Ordered By: Michael Rawls on 01-24-2023 Hemoglobin (Bld) [Mass/Vol] 9.5 g/dL 12.0-15.0 [facility] Blood platelet mean volumeOr dered By: Michael Rawls on 01-24-2023 Platelet mean volume (Bld) [Entitic vol] 11.4 fL 6.2-12.0 [facility] Determination of erythrocyte mean corpuscular volume (MCV)Ordered By: Michael Rawls on 01-24-2023 MCV (RBC) [Entitic vol] 90.0 fL 81-99 [facility] Hematocrit Auto (Bld) [Volum e fraction]Ordered By: Michael Rawls on 01-24-2023 Hematocrit (Bld) [Volume fraction] 30.6 % 37-47 [facility] Laboratory - Chemistry and C hemistry - challengeOrdered By: Michael Rawls on 01-24-2023 CO2 [Moles/Vol] 23.0 mmol/L 21.0-32.0 [facility] Urea nitrogen/Creatinine [Mass ratio] 12.1 mg/mg 10-20 [facility] Laboratory - Hematology and Cell countsOrdered By: Michael Rawls on 01-24-2023 Erythrocyte distribution width (RBC) [Entitic vol] 41.4 fL 35.1-43.9 [facility] Erythrocyte distribution width (RBC) [Ratio] 12.6 % 11.6-14.6 [facility] MCH (RBC) [Entitic mass] 27.9 pg 27.0-32.0 [facility] MCHC Auto (RBC) [Mass/Vol]Or dered By: Michael Rawls on 01-24-2023 MCHC (RBC) [Mass/Vol] 31.0 g/dL 32-36 [facility] No Panel InformationOrdered By: Michael Rawls on 01-24-2023 Estimated Creatinine Clearance Calc 61.54 ml/min [facility] Estimated GFR (MDRD) Amer 101 mL/min >60 [facility] Comment on above: GFR Calc Estimated GFR (MDRD) Non-Af Amer 84 mL/min >60 [facility] Comment on above: Non- GFR Calc Platelets bldOrdered By: Jef Rawls on 01-24-2023 Platelets (Bld) [#/Vol] 199 10*3/uL 150-450 [facility] Serum or plasma calcium alexis urement (mass/volume)Ordered By: Michael Rawls on 01-24-2023 Calcium [Mass/Vol] 7.8 mg/dL 8.5-10.1 [facility] Serum or plasma creatinine m easurement (mass/volume)Ordered By: Michael Rawls on 01-24-2023 Creatinine [Mass/Vol] 0.74 mg/dL 0.55-1.02 [facility] Comment on above: The validity of the calculated GFR & GFRAA in patients over 70 years has not been determined. Clinical correlation is essential. Serum or plasma urea nitroge n measurement (mass/volume)Ordered By: Michael Rawls on 01-24-2023 Urea nitrogen [Mass/Vol] 9 mg/dL 7-18 [facility] Thin prep Papanicolaou smear with manual screeningOrdered By: Michael Rawls on 01-24-2023 Thin prep Papanicolaou smear with manual screening 3 5-15 [facility] INR in Blood by Coagulation assayOrdered By: Michael Rawls on 01-11-2023 INR Coag (Bld) [Relative time] 1.1 {INR} [facility] Laboratory - Chemistry and C hemistry - challengeOrdered By: Stas Young on 01-11-2023 Magnesium [Mass/Vol] 1.9 mg/dL 1.6-2.6 [facility] Laboratory - CoagulationOrde red By: Michael Rawls on 01-11-2023 aPTT Coag (Bld) [Time] 31.4 s 24.1-36.2 [facility] PT Coag (PPP) [Time] 14.0 s 11.7-14.9 [facility] No Panel InformationOrdered By: Michael Rawls on 01-11-2023 Fructosamine 241 umol/L 0-285 [facility] Comment on above: Published reference interval for apparently healthysubjects between age 20 and 60 is 205 - 285 umol/L and in apoorly controlled diabetic population is 228 - 563 umol/Lwith a mean of 396 umol/L.Performed at: [facility] [address] [id number] Director: Emmanuel Osorio PhD, Phone: [phone] Nasal Screen MRSA/MSSA [facility] Whole blood hemoglobin A1c/t otal hemoglobin ratio (mass fraction)Ordered By: Michael Rawls on 01-11-2023 HbA1c (Bld) [Mass fraction] 5.4 % 3.8-5.6 [facility] Comment on above: Normal < 5.7 % Predi abetic 5.7 - 6.4 % Diabetic >or= 6.5 % Please note range changes. No Panel InformationOrdered By: Jaci Warren on 12-05-2022 Stool Calprotectin 57 ug/g 0-120 [facility] Comment on above: Concentration Interp retation Follow-Up<16 - 50 ug/g Normal None>50 -120 ug/g Borderline Re-evaluate in 4-6 weeks >120 ug/g Abnormal Repeat as clinically indicatedPerformed at: [facility] [id number] Director: Beverley Cleveland MD, Phone: [phone] Stool lactoferrin detection by immunoassayOrdered By: Jaci Warren on 12-05-2022 Lactoferrin IA Ql (Stl) [facility] CBC W Auto Differential pane l (Bld)on 10-18-2022 Basophils (Bld) [#/Vol] 0.08 10*3/uL <0.11 k/uL [facility] Basophils/100 WBC (Bld) 1.3 % [facility] Differential cell count method Nom (Bld) Auto [facility] Eosinophils (Bld) [#/Vol] 0.19 10*3/uL <0.46 k/uL [facility] Eosinophils/100 WBC (Bld) 3.2 % [facility] Erythrocyte distribution width (RBC) [Ratio] 13.5 % 11.5 - 15.0 % [facility] Hematocrit (Bld) [Volume fraction] 40.3 % 36.0 - 46.0 % [facility] Hemoglobin (Bld) [Mass/Vol] 12.5 g/dL 11.5 - 15.5 g/dL [facility] Immature granulocytes (Bld) [#/Vol] <0.10 k/uL [facility] Immature granulocytes/100 WBC (Bld) 0.3 % [facility] Lymphocytes (Bld) [#/Vol] 1.57 10*3/uL 1.00 - 4.00 k/uL [facility] Lymphocytes/100 WBC (Bld) 26.3 % [facility] MCH (RBC) [Entitic mass] 28.1 pg 26.0 - 34.0 pg [facility] MCHC (RBC) [Mass/Vol] 31.0 g/dL 30.5 - 36.0 g/dL [facility] MCV (RBC) [Entitic vol] 90.6 fL 80.0 - 100.0 fL [facility] Monocytes (Bld) [#/Vol] 0.55 10*3/uL <0.87 k/uL [facility] Monocytes/100 WBC (Bld) 9.2 % [facility] Neutrophils (Bld) [#/Vol] 3.55 10*3/uL 1.45 - 7.50 k/uL [facility] Neutrophils/100 WBC (Bld) 59.7 % [facility] Nucleated RBC (Bld) [#/Vol] <0.01 k/uL [facility] Nucleated RBC/100 WBC (Bld) [Ratio] 0.0 /100 WBC [facility] Platelet mean volume (Bld) [Entitic vol] 12.0 fL 9.0 - 12.7 fL [facility] Platelets (Bld) [#/Vol] 233 10*3/uL 150 - 400 k/uL [facility] RBC (Bld) [#/Vol] 4.45 10*6/uL 3.90 - 5.2 0 m/uL [facility] WBC (Bld) [#/Vol] 5.96 10*3/uL 3.70 - 11. 00 k/uL [facility] Absolute lymphocyte countOrd ered By: Jaci Warren on 09-19-2022 Lymphocytes Auto (Unsp spec) [#/Vol] 1.24 10*3/uL 0.83-4.51 [facility] Albumin Elph [Mass/Vol]Order ed By: Jaci Warren on 09-19-2022 Albumin [Mass/Vol] 3.5 g/dL 2.9-4.4 [facility] Atypical perinuclear antineu trophil cytoplasmic antibodies measurementOrdered By: Jaci Warren on 09-19-2022 Neutrophil cytoplasmic Ab.perinuclear.atypical IF (S) [Titer] <1:20 titer Neg:<1:20 [facility] Comment on above: The atypical pANCA p attern has been observed in asignificant percentage of patients with ulcerative colitis,primary sclerosing cholangitis and autoimmune hepatitis.Performed at: - [facility] [id number] [place], [place] [id number] Director: Emmanuel Osorio PhD, Phone: [phone] at: - [facility] [id number] Director: Beverley Cleveland MD, Phone: [phone] Basophil percentageOrdered B y: Jaci Warren on 09-19-2022 Basophil percentage < 0.2 AI 0.0-0.9 [facility] Basophils/100 WBC (Bld) 0.9 % 0-1 [facility] Bilirubin [Mass/Vol] 0.60 mg/dL 0.20-1.00 [facility] Comment on above: For patients on eltr ombopag therapy, use of Dimension [place] TBIL is not recommended. Chloride [Moles/Vol] 105 mmol/L 98-107 [facility] Eosinophils/100 WBC (Bld) 2.2 % 0-5 [facility] Glucose [Mass/Vol] 99 mg/dL 74-106 [facility] LDH [Catalytic activity/Vol] 227 U/L 84-246 [facility] Neutrophils (Bld) [#/Vol] 4.5 10*3/uL 2.0-7.7 [facility] Neutrophils/100 WBC (Bld) 69.9 % 47-70 [facility] Potassium [Moles/Vol] 4.0 mmol/L 3.5-5.1 [facility] Protein [Mass/Vol] 7.4 g/dL 6.4-8.2 [facility] Sodium [Moles/Vol] 136 mmol/L 136-145 [facility] WBC (Bld) [#/Vol] 6.5 10*3/uL 4.4-11.0 [facility] Blood erythrocytes count (nu mber/volume)Ordered By: Jaci Warren on 09-19-2022 RBC (Bld) [#/Vol] 4.72 10*6/uL 4.2-5.4 [facility] Blood hemoglobin measurement (mass/volume)Ordered By: Jaci Warren on 09-19-2022 Hemoglobin (Bld) [Mass/Vol] 13.2 g/dL 12.0-15.0 [facility] Blood lymphocytes/100 leukoc ytesOrdered By: Jaci Warren on 09-19-2022 Lymphocytes/100 WBC (Bld) 19.1 % 19-41 [facility] Blood monocytes/100 leukocyt esOrdered By: Jaci Warren on 09-19-2022 Monocytes/100 WBC (Bld) 7.4 % 0-10 [facility] Blood platelet mean volumeOr dered By: Jaci Warren on 09-19-2022 Platelet mean volume (Bld) [Entitic vol] 11.9 fL 6.2-12.0 [facility] Determination of erythrocyte mean corpuscular volume (MCV)Ordered By: Jaci Warren on 09-19-2022 MCV (RBC) [Entitic vol] 90.5 fL 81-99 [facility] Erythrocyte sedimentation ra teOrdered By: Jaci Warren on 09-19-2022 ESR (Bld) [Velocity] 29 mm/h 0-30 [facility] Hematocrit Auto (Bld) [Volum e fraction]Ordered By: Jaci Warren on 09-19-2022 Hematocrit (Bld) [Volume fraction] 42.7 % 37-47 [facility] Interpretation of serum or p lasma protein pattern by immunofixation (narrative resultOrdered By: Jaci Warren on 09-19-2022 Protein Fractions Immunofixation Yair [Interp] See comment [facility] Comment on above: noT oBSERVED Laboratory - Chemistry and C hemistry - challengeOrdered By: Jaci Warren on 09-19-2022 ALP [Catalytic activity/Vol] 99 U/L 45-117 [facility] ALT [Catalytic activity/Vol] 16 U/L 13-56 [facility] CO2 [Moles/Vol] 22.0 mmol/L 21.0-32.0 [facility] Urea nitrogen/Creatinine [Mass ratio] 13.4 mg/mg 10-20 [facility] Laboratory - Hematology and Cell countsOrdered By: Jaci Warren on 09-19-2022 Erythrocyte distribution width (RBC) [Entitic vol] 45.1 fL 35.1-43.9 [facility] Erythrocyte distribution width (RBC) [Ratio] 13.5 % 11.6-14.6 [facility] Immature granulocytes/100 WBC (Bld) 0.500 % 0.0-0.9 [facility] Comment on above: IG% - Immature Granu locytes (promyelocytes, myelocytes and metamyelocytes) > 1% indicates that a LEFT SHIFT is Present. MCH (RBC) [Entitic mass] 28.0 pg 27.0-32.0 [facility] Nucleated RBC/100 WBC (Bld) [Ratio] 0 % 0-5 [facility] MCHC Auto (RBC) [Mass/Vol]Or dered By: Jaci Warren on 09-19-2022 MCHC (RBC) [Mass/Vol] 30.9 g/dL 32-36 [facility] No Panel InformationOrdered By: Jaci Warren on 09-19-2022 Addendum Document Comment . [facility] Comment on above: Protein electrophore sis scan will follow via computer,mail, or gear tooth grinding machine operator delivery. Centromere B Antibody <0.2 AI 0.0-0.9 [facility] Endomysial IgA Antibody Negative Negative [facility] Estimated GFR (MDRD) Amer 101 mL/min >60 [facility] Comment on above: GFR Calc Estimated GFR (MDRD) Non-Af Amer 83 mL/min >60 [facility] Comment on above: Non- GFR Calc Immunoglobulin E 11 IU/mL 6-495 [facility] Miscellaneous Test See comment [facility] Comment on above: TEST RESULT LIMITSIB D Expanded Panel Belem 11 units 0-50 Negative <45 Equivocal 45 - 50 Positive >50 ACCA 117 Stephanie units 0-90 Negative <80 Equivocal 80 - 90 Positive >90 ALCA 203 High units 0-60 Negative <55 Equivocal 55 - 60 Positive >60 AMCA 144 High units 0-100 Negative < 90 Equivocal 90 - 100 Positive >100 This test was developed and its performance characteristics determined by [employer]. It has not been cleared or approved by the Food and Drug Administration. The FDA has determined that such clearance or approval is not necessary.Atypical pANCA Negative Negative Comments Abnormal Suggestive of Crohn's Disease with the very high risk of aggressive disease behavior(development of strictures or fistulae) ____ TESTING PERFORMED AT [facility]. ORIGINAL REPORT ON FILE IN LAB CONTAINS ADDITIONAL TEST SITE INFORMATION. ASSISTANT PROFESSOR OF ANTHROPOLOGY Antibody 0.3 AI 0.0-0.9 [facility] Platelets bldOrdered By: Daija Warren on 09-19-2022 Platelets (Bld) [#/Vol] 264 10*3/uL 150-450 [facility] Serum DNA double strand anti body assay (units/volume)Ordered By: Jaci Warren on 09-19-2022 DNA double strand Ab Qn (S) [IU]/mL 0-9 [facility] Comment on above: Negative <5 Equivoca l 5 - 9 Positive >9 Serum Claudine-1 antibody assay (u nits/volume)Ordered By: Jaci Warren on 09-19-2022 Claudine-1 extractable nuclear Ab Qn (S) <0.2 AI 0.0-0.9 [facility] Serum Scl-70 extractable nuc lear antibody assay (units/volume)Ordered By: Jaci Warren on 09-19-2022 SCL-70 extractable nuclear Ab Qn (S) <0.2 AI 0.0-0.9 [facility] Serum Valero extractable nucl ear antibody detectionOrdered By: Jaci Warren on 09-19-2022 Valero extractable nuclear Ab Ql (S) <0.2 AI 0.0-0.9 [facility] Serum [id number] measu rement by electrophoresisOrdered By: Jaci Warren on 09-19-2022 Alpha 1 globulin Elph [Mass/Vol] 0.3 g/dL 0.0-0.4 [facility] Alpha 1 globulin Elph [Mass/Vol] 0.9 g/dL 0.4-1.0 [facility] Serum classic neutrophil cyt oplasmic antibody assay (units/volume)Ordered By: Jaci Warren on 09-19-2022 Neutrophil cytoplasmic Ab.classic Qn (S) <1:20 titer Neg:<1:20 [facility] Serum globulin measurement ( mass/volume)Ordered By: Jaci Warren on 09-19-2022 Globulin (S) [Mass/Vol] 3.0 g/dL 2.2-3.9 [facility] Serum or plasma C reactive p rotein measurement (mass/volume)Ordered By: Jaci Warren on 09-19-2022 CRP [Mass/Vol] 5.02 mg/L 0.0-3.0 [facility] Comment on above: C-Reactive Protein ( CRP) provides useful information for thediagnosis, therapy and monitoring of inflammatory processesand associated diseases. For the evaluation of Relative Riskfor Cardiovascular Disease, a High Sensitivity CRP (HSCRP)should be ordered. Serum or plasma IgA measurem ent (mass/volume)Ordered By: Jaci Warren on 09-19-2022 IgA [Mass/Vol] 103 mg/dL 87-352 [facility] Serum or plasma IgG measurem ent (mass/volume)Ordered By: Jaci Warren on 09-19-2022 IgG [Mass/Vol] 916 mg/dL 586-1602 [facility] Serum or plasma IgM measurem ent (mass/volume)Ordered By: Jaci Warren on 09-19-2022 IgM [Mass/Vol] 48 mg/dL 26-217 [facility] Serum or plasma albumin alexis urement (mass/volume)Ordered By: Jaci Warren on 09-19-2022 Albumin [Mass/Vol] 3.7 g/dL 3.2-5.0 [facility] Serum or plasma albumin/glob ulin mass ratioOrdered By: Jaci Warren on 09-19-2022 Albumin/Globulin [Mass ratio] 1.0 {ratio} 0.9-2.4 [facility] Serum or plasma beta globuli n measurement by electrophoresis (mass/volume)Ordered By: Jaci Warren on 09-19-2022 Beta globulin Elph [Mass/Vol] 0.9 g/dL 0.7-1.3 [facility] Serum or plasma calcium alexis urement (mass/volume)Ordered By: Jaci Warren on 09-19-2022 Calcium [Mass/Vol] 9.3 mg/dL 8.5-10.1 [facility] Serum or plasma creatinine m easurement (mass/volume)Ordered By: Jaci Warren on 09-19-2022 Creatinine [Mass/Vol] 0.75 mg/dL 0.55-1.02 [facility] Comment on above: The validity of the calculated GFR & GFRAA in patients over 70 years has not been determined. Clinical correlation is essential. Serum or plasma gamma globul in measurement by electrophoresis (mass/volume)Ordered By: Jaci Warren on 09-19-2022 Gamma globulin Elph [Mass/Vol] 0.8 g/dL 0.4-1.8 [facility] Serum or plasma immunoelectr ophoresis interpretation (nominal result)Ordered By: Jaci Warren on 09-19-2022 Interpretation IEP [Interp] Comment . [facility] Comment on above: No monoclonality det ected. Serum or plasma urea nitroge n measurement (mass/volume)Ordered By: Jaci Warren on 09-19-2022 Urea nitrogen [Mass/Vol] 10 mg/dL 7-18 [facility] Serum perinuclear neutrophil cytoplasmic antibody titer by immunofluorescenceOrdered By: Jaci Warren on 09-19-2022 Neutrophil cytoplasmic Ab.perinuclear IF (S) [Titer] <1:20 titer Neg:<1:20 [facility] Comment on above: The presence of posi tive fluorescence exhibiting P-ANCA orC-ANCA patterns alone is not specific for the diagnosis ofWegener's Granulomatosis (WG) or microscopic polyangiitis.Decisions about treatment should not be based solely onANCA IFA results. The International ANCA Group Consensusrecommends follow up testing of positive sera with both VA-3 and MPO-ANCA enzyme immunoassays. As many as 5% serumsamples are positive only by EIA. Ref. AM J Clin Ouyqyy4761;111:507-513. Serum tissue transglutaminas e IgA antibody assay (units/volume)Ordered By: Jaci Warren on 09-19-2022 tTG IgA Qn (S) <2 U/mL 0-3 [facility] Comment on above: Negative 0 - 3 Weak Positive 4 - 10 Positive >10 Tissue Transglutaminase (tTG) has been identified as the endomysial antigen. Studies have demonstr- ated that endomysial IgA antibodies have over 99% specificity for gluten sensitive enteropathy. Thin prep Papanicolaou smear with manual screeningOrdered By: Jaci Warren on 09-19-2022 Thin prep Papanicolaou smear with manual screening 21 U/L 15-37 [facility] Thin prep Papanicolaou smear with manual screening 9 5-15 [facility] Thin prep Papanicolaou smear with manual screening 1.2 0.7-1.7 [facility] Total protein bloodOrdered B y: Jaci Warren on 09-19-2022 Protein [Mass/Vol] 6.5 g/dL 6.0-8.5 [facility] - Microbiology an d Antimicrobial susceptibilityon 09-12-2022 S. pyogenes Ag IA Ql (Unsp spec) Negative [facility] C-REACTIVE PROTEIN (CRP)on 1 09-17-2021 CRP [Mass/Vol] 0.6 mg/dL <0.9 mg/dL [facility] CBC W Auto Differential pane l (Bld)on 07-17-2022 Basophils (Bld) [#/Vol] 0.08 10*3/uL <0.11 k/uL [facility] Basophils/100 WBC (Bld) 1.3 % [facility] Differential cell count method Nom (Bld) Auto [facility] Eosinophils (Bld) [#/Vol] 0.18 10*3/uL <0.46 k/uL [facility] Eosinophils/100 WBC (Bld) 2.9 % [facility] Erythrocyte distribution width (RBC) [Ratio] 16.4 % High 11.5 - 15.0 % [facility] Hematocrit (Bld) [Volume fraction] 41.4 % 36.0 - 46.0 % [facility] Hemoglobin (Bld) [Mass/Vol] 13.0 g/dL 11.5 - 15.5 g/dL [facility] Immature granulocytes (Bld) [#/Vol] 0.03 10*3/uL <0.10 k/uL [facility] Immature granulocytes/100 WBC (Bld) 0.5 % [facility] Lymphocytes (Bld) [#/Vol] 1.35 10*3/uL 1.00 - 4.00 k/uL [facility] Lymphocytes/100 WBC (Bld) 21.8 % [facility] MCH (RBC) [Entitic mass] 27.1 pg 26.0 - 34.0 pg [facility] MCHC (RBC) [Mass/Vol] 31.4 g/dL 30.5 - 36.0 g/dL [facility] MCV (RBC) [Entitic vol] 86.4 fL 80.0 - 100.0 fL [facility] Monocytes (Bld) [#/Vol] 0.52 10*3/uL <0.87 k/uL [facility] Monocytes/100 WBC (Bld) 8.4 % [facility] Neutrophils (Bld) [#/Vol] 4.03 10*3/uL 1.45 - 7.50 k/uL [facility] Neutrophils/100 WBC (Bld) 65.1 % [facility] Nucleated RBC (Bld) [#/Vol] <0.01 k/uL [facility] Nucleated RBC/100 WBC (Bld) [Ratio] 0.0 /100 WBC [facility] Platelet mean volume (Bld) [Entitic vol] 11.7 fL 9.0 - 12.7 fL [facility] Platelets (Bld) [#/Vol] 238 10*3/uL 150 - 400 k/uL [facility] RBC (Bld) [#/Vol] 4.79 10*6/uL 3.90 - 5.2 0 m/uL [facility] WBC (Bld) [#/Vol] 6.19 10*3/uL 3.70 - 11. 00 k/uL [facility] Comprehensive metabolic 2000 panelon 07-17-2022 Albumin [Mass/Vol] 4.4 g/dL 3.9 - 4.9 g/dL [facility] ALP [Catalytic activity/Vol] 97 U/L 34 - 123 U/L [facility] ALT With P-5'-P [Catalytic activity/Vol] 13 U/L 7 - 38 U/L [facility] Anion gap [Moles/Vol] 12 mmol/L 9 - 18 mmol/L [facility] AST With P-5'-P [Catalytic activity/Vol] 23 U/L 13 - 35 U/L [facility] Bilirubin [Mass/Vol] 0.2 mg/dL 0.2 - 1 .3 mg/dL [facility] Calcium [Mass/Vol] 9.5 mg/dL 8.5 - 10. 2 mg/dL [facility] Chloride [Moles/Vol] 100 mmol/L 97 - 10 5 mmol/L [facility] CO2 [Moles/Vol] 25 mmol/L 22 - 30 mmol/L [facility] Creatinine [Mass/Vol] 0.67 mg/dL 0.58 - 0.96 mg/dL [facility] Estimated Glomerular Filtration Rate 98 mL/min/1.73m >=60 mL/min/1.73m [facility] Glucose [Mass/Vol] 83 mg/dL 74 - 99 mg/dL [facility] Potassium [Moles/Vol] 4.1 mmol/L 3.7 - 5.1 mmol/L [facility] Protein [Mass/Vol] 7.2 g/dL 6.3 - 8.0 g/dL [facility] Sodium [Moles/Vol] 137 mmol/L 136 - 144 mmol/L [facility] Urea nitrogen [Mass/Vol] 8 mg/dL 7 - 21 mg/dL [facility] Laboratory - Microbiology an d Antimicrobial susceptibilityon 07-13-2022 SARS-CoV-2 (COVID-19) RNA CORAL+probe Ql (Unsp spec) Not detected [facility] No Panel Informationon 07-13 Influenza Types A,B Rapid (Clinic) Not detected [facility] DXA-AXIAL SKELETONon 022 [facility] .Auto Diffon 04-04-2022 Basophil, Absolute 0.1 10 3/mcL Normal 0.0-0.2 [facility] ([place]) Comment on above: Performed By: #### B MP, ANEU, GFR, ADIFF, CBC #### [facility] [address] [place] [id number] Basophils/100 WBC (Bld) 1.4 % Normal 0.0-2.5 A [facility] ([place]) Comment on above: Performed By: #### B MP, ANEU, GFR, ADIFF, CBC #### [address] [address] Eosinophil, Absolute 0.2 10 3/mcL Normal 0.0-0.4 [facility]ly [facility] ([place]) Comment on above: Performed By: #### B MP, ANEU, GFR, ADIFF, CBC #### [address] [address] Eosinophils/100 WBC (Bld) 3.7 % Normal 0.0-7.0 [facility] ([place]) Comment on above: Performed By: #### B MP, ANEU, GFR, ADIFF, CBC #### [address] [address] Lymphocyte, Absolute 0.9 10 3/mcL Normal 0.8-3.9 [facility] ([place]) Comment on above: Performed By: #### B MP, ANEU, GFR, ADIFF, CBC #### [address] [address] Lymphocytes/100 WBC (Bld) 13.7 % Normal 10.0-50.0 [facility] ([place]) Comment on above: Performed By: #### B MP, ANEU, GFR, ADIFF, CBC #### [address] [address] Monocyte, Absolute 0.6 10 3/mcL Normal 0.2-1.0 [facility] ([place]) Comment on above: Performed By: #### B MP, ANEU, GFR, ADIFF, CBC #### [address] [address] Monocytes/100 WBC (Bld) 10.2 % Normal 1.7-13.0 [facility] ([place]) Comment on above: Performed By: #### B MP, ANEU, GFR, ADIFF, CBC #### [address] [address] Neutrophils/100 WBC (Bld) 71.0 % Normal 37.0-80.0 [facility] ([place]) Comment on above: Performed By: #### B MP, ANEU, GFR, ADIFF, CBC #### [place] [id number] .NEUABSon 04-04-2022 Neutrophil, Absolute 4.5 10 3/mcL Normal 2.9-6.2 [facility] ([place]) Comment on above: Performed By: #### B MP, ANEU, GFR, ADIFF, CBC #### [place] [address] CBCon 04-04-2022 Erythrocyte distribution width (RBC) [Ratio] 15.2 % High 11.5-14.5 [facility] ([place]) Comment on above: Performed By: #### B MP, ANEU, GFR, ADIFF, CBC #### [place] [address] Hematocrit (Bld) [Volume fraction] 40.3 % Normal 37.0-47.0 [facility] ([place] Comment on above: Performed By: #### B MP, ANEU, GFR, ADIFF, CBC #### [place] [address] Hgb 13.5 G/dL Normal 12.0-16.0 [facility] ([place] Comment on above: Performed By: #### B MP, ANEU, GFR, ADIFF, CBC #### [place] [address] MCH (RBC) [Entitic mass] 27.5 pg Normal 27.0-31.2 [facility] ([place] Comment on above: Performed By: #### B MP, ANEU, GFR, ADIFF, CBC #### [place] [address] MCHC 33.5 G/dL Normal 33.0-37.0 [facility] ([place] Comment on above: Performed By: #### B MP, ANEU, GFR, ADIFF, CBC #### [place] [address] MCV (RBC) [Entitic vol] 82.1 fL Normal 80.0-94.0 A [facility]ly [facility] ([place]) Comment on above: Performed By: #### B MP, ANEU, GFR, ADIFF, CBC #### [place] [address] Platelet 192 10 3/mcL Normal 130-400 [facility] ([place] Comment on above: Performed By: #### B MP, ANEU, GFR, ADIFF, CBC #### [place] [address] Platelet mean volume (Bld) [Entitic vol] 9.7 fL Normal 7.4-10.4 [facility] ([place] Comment on above: Performed By: #### B MP, ANEU, GFR, ADIFF, CBC #### [place] [address] RBC 4.91 10 6/mcL Normal 4.20-5.40 [facility] ([place] Comment on above: Performed By: #### B MP, ANEU, GFR, ADIFF, CBC #### [place] [address] WBC 6.3 10 3/mcL Normal 4.6-10.8 [facility] ([place] Comment on above: Performed By: #### B MP, ANEU, GFR, ADIFF, CBC #### [place] [address] CRPon 04-04-2022 CRP [Mass/Vol] mg/L Normal 0.0-0.9 [facility] ([place] Comment on above: Performed By: #### B MP, ANEU, GFR, ADIFF, CBC #### [place] [address] ESRon 04-04-2022 Erythrocyte Sed Rate 19 mm/hr Normal 0-30 [facility] ([place]) Comment on above: Performed By: #### B MP, ANEU, GFR, ADIFF, CBC #### [place] [id number] NM BONE IMAGING WHOLE BODYon 03-29-2022 NM BONE IMAGING WHOLE BODY ORIGINAL EXAMINATION: WHOLE BODY BONE SCAN03/29/2022 2:36 pm TECHNIQUE: The patient received an intravenous injection of 25.8 mCi of Tc-99m MDP. Anterior and posterior images of the skeleton from skull vertex to feet were then acquired. Additional regional skeletal images were also obtained. COMPARISON: March 19, 2022 bone scan, August 29, 2021 radiograph pole wall HISTORY: ORDERING SYSTEM PROVIDED HISTORY: Reason for Exam: DISPLACED FRACTURE OF BASE OF NECK left hip injury July of 2021 with surgery, re-injury January of 2022. FINDINGS: Delayed osseous phase images demonstrate mild left hip soft tissue activity. There is photopenia secondary to left hip prosthesis. There is mild radiotracer deposition along the medial, lateral, and distal femoral component. Left knee photopenia with prosthesis is noted with mild periprosthetic activity. There are areas of arthritic uptake including the lumbar spine, right knee, ankles, mid feet, and toes. Additional focal radiotracer deposition at several right anterior ribs may reflect fractures versus costochondritis. Are Activity in the bilateral kidneys and the urinary bladder represent normal route of radiopharmaceutical excretion. IMPRESSION: 1. Redemonstration of mild left hip soft tissue activity, likely relating to soft tissue injury. 2. Mild periprosthetic uptake around the left femoral component has an appearance more suggestive of reactive bone turnover rather than fracture. 3. Additional incidental findings as described above. Interpreted by: Bola Ridley DO Preliminary Report By: Bola Ridley DO Electronically signed By Bola Ridley DO Dictated Date: 03/29/2022 3:03:34 PM Prelim Date: 03/29/2022 3:10:43 PM Sign Date: 03/29/2022 3:10:43 PM Ordering Provider: BELLA GILLESPIE [facility] ([place]) GA BONE IMAGING WHOLE BODYon 03-20-2022 GA BONE IMAGING WHOLE BODY ORIGINAL EXAMINATION: WHOLE BODY BONE SCAN03/19/2022 12:12 pm TECHNIQUE: 29.4 millicuries of technetium 99m MDP was injected. Flow and blood pool soft tissue images of the left hip were obtained COMPARISON: None CORRELATION: Radiograph August 29, 2021 HISTORY: Reason for Exam: Displaced fracture of base of neck of left femur Left hip replacement August 2021 patient reports fall 2 weeks ago with left hip pain FINDINGS: The patient's hand appears overlying the right thigh in the middle of flow imaging. Flow images demonstrate no significant hyperemia. There is subtle superficial soft tissue hyperemia at the left lateral hip. There is photopenia at the left hip arthroplasty and left knee arthroplasty. Urinary bladder activity is overlapping left hip on the lateral view. Delayed images were not performed as patient did not return for imaging. IMPRESSION: Incomplete examination as patient did not return for delayed images. Superficial soft tissue injury at the left lateral hip. I have personally reviewed the images of this examination and agree with the resident's findings and interpretation. Interpreted by: Roxanna Saul MD Preliminary Report By: Nikkie Slater Electronically signed By Roxanna Saul MD Dictated Date: 03/19/2022 1:30:12 PM Prelim Date: 03/20/2022 6:05:15 PM Sign Date: 03/20/2022 6:05:15 PM Ordering Provider: [facility] ([place]) C-REACTIVE PROTEIN (CRP)on 0 03-05-2022 CRP [Mass/Vol] 0.3 mg/dL <0.9 mg/dL [facility] CBC W Auto Differential pane l (Bld)on 03-05-2022 Abs Immature Gran <0.10 k/uL [facility] Basophils (Bld) [#/Vol] 0.11 10*3/uL High <0.11 k/uL [facility] Basophils/100 WBC (Bld) 1.8 % [facility] Differential cell count method Nom (Bld) Auto [facility] Eosinophils (Bld) [#/Vol] 0.30 10*3/uL <0.46 k/uL [facility] Eosinophils/100 WBC (Bld) 4.8 % [facility] Erythrocyte distribution width (RBC) [Ratio] 15.2 % High 11.5 - 15.0 % [facility] Hematocrit (Bld) [Volume fraction] 40.0 % 36.0 - 46.0 % [facility] Hemoglobin (Bld) [Mass/Vol] 12.4 g/dL 11.5 - 15.5 g/dL [facility] Immature Gran % 0.3 % [facility] Lymphocytes (Bld) [#/Vol] 1.39 10*3/uL 1.00 - 4.00 k/uL [facility] Lymphocytes/100 WBC (Bld) 22.2 % [facility] MCH (RBC) [Entitic mass] 26.7 pg 26.0 - 34.0 pg [facility] MCHC (RBC) [Mass/Vol] 31.0 g/dL 30.5 - 36.0 g/dL [facility] MCV (RBC) [Entitic vol] 86.2 fL 80.0 - 100.0 fL [facility] Monocytes (Bld) [#/Vol] 0.55 10*3/uL <0.87 k/uL [facility] Monocytes/100 WBC (Bld) 8.8 % [facility] Neutrophils (Bld) [#/Vol] 3.88 10*3/uL 1.45 - 7.50 k/uL [facility] Neutrophils/100 WBC (Bld) 62.1 % [facility] Nucleated RBC (Bld) [#/Vol] <0.01 k/uL [facility] Nucleated RBC/100 WBC (Bld) [Ratio] 0.0 /100 WBC [facility] Platelet mean volume (Bld) [Entitic vol] 11.9 fL 9.0 - 12.7 fL [facility] Platelets (Bld) [#/Vol] 205 10*3/uL 150 - 400 k/uL [facility] RBC (Bld) [#/Vol] 4.64 10*6/uL 3.90 - 5.2 0 m/uL [facility] WBC (Bld) [#/Vol] 6.25 10*3/uL 3.70 - 11. 00 k/uL [facility] Comprehensive metabolic 2000 panelon 03-05-2022 Albumin [Mass/Vol] 4.2 g/dL 3.9 - 4.9 g/dL [facility] ALP [Catalytic activity/Vol] 98 U/L 34 - 123 U/L [facility] ALT With P-5'-P [Catalytic activity/Vol] 12 U/L 7 - 38 U/L [facility] Anion gap [Moles/Vol] 10 mmol/L 9 - 18 mmol/L [facility] AST With P-5'-P [Catalytic activity/Vol] 22 U/L 13 - 35 U/L [facility] Bilirubin [Mass/Vol] 0.2 mg/dL 0.2 - 1 .3 mg/dL [facility] Calcium [Mass/Vol] 8.8 mg/dL 8.5 - 10. 2 mg/dL [facility] Chloride [Moles/Vol] 105 mmol/L 97 - 10 5 mmol/L [facility] CO2 [Moles/Vol] 23 mmol/L 22 - 30 mmol/L [facility] Creatinine [Mass/Vol] 0.66 mg/dL 0.58 - 0.96 mg/dL [facility] Estimated Glomerular Filtration Rate 99 mL/min/1.73m >=60 mL/min/1.73m [facility] Glucose [Mass/Vol] 88 mg/dL 74 - 99 mg/dL [facility] Potassium [Moles/Vol] 3.8 mmol/L 3.7 - 5.1 mmol/L [facility] Protein [Mass/Vol] 6.7 g/dL 6.3 - 8.0 g/dL [facility] Sodium [Moles/Vol] 138 mmol/L 136 - 144 mmol/L [facility] Urea nitrogen [Mass/Vol] 9 mg/dL 7 - 21 mg/dL [facility] Final Surgical Pathology Rep [facility] 09-01-2021 Final Surgical Pathology Report . Pathology Reports Accession: Collected Date/Time: Received Date/Time: Pathologist: [id number] 08/29/2021 16:24 EST 08/30/2021 07:37 EST DO JOAN BONILLA Final Surgical Pathology Report DIAGNOSIS: BONE, LEFT HIP - MARKED HEMORRHAGE AND CONGESTION COMPATIBLE WITH RECENT FRACTURE AND SCATTERED MARROW ELEMENTS. NEGATIVE FOR MALIGNANCY. Immunostains for Pankeratin are negative. CLINICAL INFORMATION: Procedure: LEFT HIP HEMIARTHROPLASTY Preoperative diagnosis: LEFT FEMORAL NECK FRACTURE Postoperative diagnosis: LEFT FEMORAL NECK FRACTURE SPECIMEN: A LEFT BONE BIOPSY OF HIP GROSS DESCRIPTION: A. Received in formalin, labeled with the patients name, Case #[id number], and left bone biopsy of femur is a red-brown accumulation of bone biopsy and blood clots aggregating to 2.5 x 1.5 x 0.6 cm. TS -1 following decalcification. Dictated by JAIDEN ALMAZAN MICROSCOPIC DESCRIPTION: Slides reviewed. Electronically Signed by Pathology Report verified by [facility] Electronically signed by JOAN BONILLA DO Sign out Date: 09/01/2021 08:04 Performing Lab: [facility], [address] [place] [address] Normal [facility] ([place]) .Auto Diffon 08-31-2021 Basophil, Absolute 0.10 10 3/mcL Normal 0.00-0.27 [facility] ([place]) Comment on above: Performed By: #### B MP, ANEU, GFR, ADIFF, CBC #### [address] [address] Basophils/100 WBC (Bld) 0.7 % Normal 0.0-2.5 A [facility]ly [facility] ([place]) Comment on above: Performed By: #### B MP, ANEU, GFR, ADIFF, CBC #### [address] [address] Eosinophil, Absolute 0.10 10 3/mcL Normal 0.00-0.65 A [facility] ([place]) Comment on above: Performed By: #### B MP, ANEU, GFR, ADIFF, CBC #### [address] [address] Eosinophils/100 WBC (Bld) 1.2 % Normal 0.0-6.0 [facility] ([place] Comment on above: Performed By: #### B MP, ANEU, GFR, ADIFF, CBC #### [address] [address] Lymphocyte, Absolute 0.80 10 3/mcL Low 0.90-4.32 A [facility] ([place]) Comment on above: Performed By: #### B MP, ANEU, GFR, ADIFF, CBC #### [address] [address] Lymphocytes/100 WBC (Bld) 8.5 % Low 20.0-40.0 [facility] ([place] Comment on above: Performed By: #### B MP, ANEU, GFR, ADIFF, CBC #### [address] [address] Monocyte, Absolute 1.00 10 3/mcL Normal 0.09-1.40 [facility] ([place]) Comment on above: Performed By: #### B MP, ANEU, GFR, ADIFF, CBC #### [address] [address] Monocytes/100 WBC (Bld) 10.3 % Normal 2.0-13.0 A [facility] ([place] Comment on above: Performed By: #### B MP, ANEU, GFR, ADIFF, CBC #### [address] [address] Neutrophils/100 WBC (Bld) 79.3 % High 50.0-75.0 [facility] ([place] Comment on above: Performed By: #### B MP, ANEU, GFR, ADIFF, CBC #### [address] [address] .GFRon 08-31-2021 GFR >60 Normal [facility] ([place]) Comment on above: Result Comment: GFR Population mean for , Non- Americans Ages 20-29 = 116 mL/min/1.73 sq.m. Ages 30-39 = 107 mL/min/1.73 sq.m. Ages 40-49 = 99 mL/min/1.73 sq.m. Ages 50-59 = 93 mL/min/1.73 sq.m. Ages 60-69 = 85 mL/min/1.73 sq.m. Ages 70+ = 75 mL/min/1.73 sq.m. Chronic Kidney Disease: Less than 60 mL/min/1.73 square meters End Stage Renal Disease: Less than 15 mL/min/1.73 square meters Performed By: #### B MP, ANEU, GFR, ADIFF, CBC #### [address] [address] GFR Non- >60 Normal [facility] ([place] Comment on above: Result Comment: GFR Population mean for , Non- Americans Ages 20-29 = 116 mL/min/1.73 sq.m. Ages 30-39 = 107 mL/min/1.73 sq.m. Ages 40-49 = 99 mL/min/1.73 sq.m. Ages 50-59 = 93 mL/min/1.73 sq.m. Ages 60-69 = 85 mL/min/1.73 sq.m. Ages 70+ = 75 mL/min/1.73 sq.m. Chronic Kidney Disease: Less than 60 mL/min/1.73 square meters End Stage Renal Disease: Less than 15 mL/min/1.73 square meters Performed By: #### B MP, ANEU, GFR, ADIFF, CBC #### [address] [address] .NEUABSon 08-31-2021 Neutrophil, Absolute 7.40 10 3/mcL Normal 2.25-8.10 A [facility] ([place]) Comment on above: Performed By: #### B MP, ANEU, GFR, ADIFF, CBC #### [address] [address] BMPon 08-31-2021 BUN/Creatinine Ratio 18.4 ratio Normal 10.0-22.0 [facility] ([place]) Comment on above: Performed By: #### B MP, ANEU, GFR, ADIFF, CBC #### [place] [address] Calcium [Mass/Vol] 9.2 mg/dL Normal 8.7-10.4 [facility] [place] Comment on above: Result Comment: No te - New Reference Range in effect 20 Performed By: #### B MP, ANEU, GFR, ADIFF, CBC #### [place] [address] Chloride [Moles/Vol] 106 mmol/L Normal 98-110 [facility] ([place] Comment on above: Performed By: #### B MP, ANEU, GFR, ADIFF, CBC #### [place] [id number] CO2 [Moles/Vol] 24 mmol/L Normal 22-32 [facility] ([place] Comment on above: Performed By: #### B MP, ANEU, GFR, ADIFF, CBC #### [address] [address] Creatinine [Mass/Vol] 0.76 mg/dL Normal 0.50-1.20 [facility] ([place]) Comment on above: Performed By: #### B MP, ANEU, GFR, ADIFF, CBC #### [place] [id number] Electrolyte Balance 4.0 mEq/L Normal 4.0-15.0 [facility] ([place]) Comment on above: Performed By: #### B MP, ANEU, GFR, ADIFF, CBC #### [place] [id number] Glucose [Mass/Vol] 123 mg/dL High 82-115 [facility] [place] Comment on above: Performed By: #### B MP, ANEU, GFR, ADIFF, CBC #### [place] [address] Potassium [Moles/Vol] 4.0 mmol/L Normal 3.5-5.0 [facility] ([place]) Comment on above: Result Comment: Spec imen slightly hemolyzed. Performed By: #### B MP, ANEU, GFR, ADIFF, CBC #### [place] [address] Sodium [Moles/Vol] 134 mmol/L Low 136-145 [facility] [place] Comment on above: Performed By: #### B MP, ANEU, GFR, ADIFF, CBC #### [place] [address] Urea nitrogen [Mass/Vol] 14.0 mg/dL Normal 8.0-22.0 [facility] ([place] Comment on above: Performed By: #### B MP, ANEU, GFR, ADIFF, CBC #### [place] [address] CBCon 08-31-2021 Erythrocyte distribution width (RBC) [Ratio] 14.2 % Normal 11.5-15.5 [facility] ([place] Comment on above: Performed By: #### B MP, ANEU, GFR, ADIFF, CBC #### [place] [address] Hematocrit (Bld) [Volume fraction] 32.4 % Low 34.0-46.0 [facility] ([place] Comment on above: Performed By: #### B MP, ANEU, GFR, ADIFF, CBC #### [place] [address] Hgb 10.7 G/dL Low 12.0-16.0 [facility] ([place] Comment on above: Performed By: #### B MP, ANEU, GFR, ADIFF, CBC #### [place] [address] MCH (RBC) [Entitic mass] 28.0 pg Normal 27.0-33.0 [facility] [place] Comment on above: Performed By: #### B MP, ANEU, GFR, ADIFF, CBC #### [place] [address] MCHC 33.1 G/dL Normal 32.0-36.0 [facility] ([place] Comment on above: Performed By: #### B MP, ANEU, GFR, ADIFF, CBC #### [place] [address] MCV (RBC) [Entitic vol] 84.6 fL Normal 80.0-99.0 A [facility] ([place] Comment on above: Performed By: #### B MP, ANEU, GFR, ADIFF, CBC #### [place] [address] Platelet 170 10 3/mcL Normal 150-450 [facility] [place] Comment on above: Performed By: #### B MP, ANEU, GFR, ADIFF, CBC #### [place] [address] Platelet mean volume (Bld) [Entitic vol] 9.5 fL Normal 6.6-10.5 [facility] ([place] Comment on above: Performed By: #### B MP, ANEU, GFR, ADIFF, CBC #### [place] [address] RBC 3.83 10 6/mcL Low 4.10-5.30 [facility] [place] Comment on above: Performed By: #### B MP, ANEU, GFR, ADIFF, CBC #### [place] [address] WBC 9.30 10 3/mcL Normal 4.50-10.80 [facility] [place] Comment on above: Performed By: #### B MP, ANEU, GFR, ADIFF, CBC #### [place] [address] CVFLURVon 08-31-2021 Date of Onset [id number] Invalid Interpretation Code [facility] ([place] Comment on above: Performed By: #### C VFLURV #### [place] [address] 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 [facility] ([place]) Comment on above: Performed By: #### C VFLURV #### [place] [address] First Test Unknown [facility] ([place]) Comment on above: Performed By: #### C VFLURV #### [place] [address] FLU A PCR Negative Normal Negative [facility] ([place] Comment on above: Result Comment: [place] [id number] Performed By: #### C VFLURV #### [place] [address] FLU B PCR Negative Normal Negative [facility] ([place] Comment on above: Result Comment: [place] s [id number] Performed By: #### C VFLURV #### [place] [address] Hospitalized Yes [facility] ([place] Comment on above: Performed By: #### C VFLURV #### [place] [address] ICU No [facility] ([place] Comment on above: Performed By: #### C VFLURV #### [place] [address] Not [facility] ([place] Comment on above: Performed By: #### C VFLURV #### [place] [address] Resides in Congregate Care Setting Unknown [facility] ([place] Comment on above: Performed By: #### C VFLURV #### [place] [address] RSV PCR Negative Normal Negative [facility] [place] Comment on above: Result Comment: [place] [id number] Performed By: #### C VFLURV #### [place] [address] SARS-CoV-2 (COVID-19) RNA CORAL+probe Ql (Unsp spec) Negative Normal Negative [facility] ([place] Comment on above: Result Comment: [place] [id number] This test has been authorized by FDA under an EUA for use by authorized laboratories and has not been FDA cleared or approved. Results from the Xpert Xpress SARS-CoV-2/Flu/RSV or Xpert Xpress SARS-CoV-2 only test should be correlated with the clinical history, epidemiological data, and other data available to the clinician evaluating the patient. Performance of the Xpert Xpress SARS-CoV-2/Flu/RSV or Xpert Xpress SARS-CoV-2 only test has only been established in nasopharyngeal swab specimens. Erroneous test results might occur from improper specimen collection; failure to follow the recommended sample collection, handling, and storage procedures; technical error; or sample mix-up. False negative results may occur if virus is present at levels below the analytical limit of detection. Viral nucleic acid may persist in vivo, independent of virus viability. Detection of analyte target(s) does not imply that the corresponding virus(es) are infectious or are the causative agents for clinical symptoms. Recent patient exposure to FluMist or other live attenuated influenza vaccines may cause inaccurate positive results. 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 (08/31/21 4:36 PM) Invalid Interpretation Code AH Auto Viro/Sero SS First Test Unknown (08/31/21 4:36 PM) Invalid Interpretation Code AH Auto Viro/Sero SS FLU A PCR Negative 4 (08/31/21 4:36 PM) Invalid Interpretation Code Negative AH Auto Viro/Sero SS Comment on above: Result Comment: [place] [id number] FLU B PCR Negative 5 (08/31/21 4:36 PM) Invalid Interpretation Code Negative AH Auto Viro/Sero SS Comment on above: Result Comment: [place] s [id number] Hospitalized Yes (08/31/21 4:36 PM) Invalid Interpretation Code AH Auto Viro/Sero SS ICU No (08/31/21 4:36 PM) Invalid Interpretation Code AH Auto Viro/Sero SS Not (08/31/21 4:36 PM) Invalid Interpretation Code AH Auto Viro/Sero SS Resides in Congregate Care Setting Unknown (08/31/21 4:36 PM) Invalid Interpretation Code AH Auto Viro/Sero SS RSV PCR Negative 6 (08/31/21 4:36 PM) Invalid Interpretation Code Negative AH Auto Viro/Sero SS Comment on above: Result Comment: [place] s [id number] SARS-CoV-2 (COVID-19) RNA CORAL+probe Ql (Unsp spec) Negative 3 (08/31/21 4:36 PM) Invalid Interpretation Code Negative AH Auto Viro/Sero SS Comment on above: Result Comment: [place] [id number] Symptomatic as Defined by CDC Unknown (08/31/21 4:36 PM) Invalid Interpretation Code AH Auto Viro/Sero SS LABORATORYOrdered By: SYSTEM SYSTEM on 08-31-2021 Basophils (Bld) [#/Vol] 0.10 103/mcL Invalid Interpretation Code 0.00 - 0.27 10^3/mcL AH Remisol SS Basophils/100 WBC (Bld) 0.7 % Invalid Interpretation Code 0.0 - 2.5 % AH Remisol SS Calcium [Mass/Vol] 9.2 mg/dL Invalid Interpretation Code 8.7 - 10.4 mg/dL AH ADM SS Chloride [Moles/Vol] 106 mmol/L Invalid Interpretation Code 98 - 110 mEq/L AH ADM SS CO2 [Moles/Vol] 24 mmol/L Invalid Interpretation Code 22 - 32 mEq/L AH ADM SS Creatinine [Mass/Vol] 0.76 mg/dL Invalid Interpretation Code 0.50 - 1.20 mg/dL AH ADM SS Electrolyte Balance 4.0 mEq/L Invalid Interpretation Code 4.0 - 15.0 mEq/L AH ADM SS Eosinophils (Bld) [#/Vol] 0.10 103/mcL Invalid Interpretation Code 0.00 - 0.65 10^3/mcL AH Remisol SS Eosinophils/100 WBC (Bld) 1.2 % Invalid Interpretation Code 0.0 - 6.0 % AH Remisol SS Erythrocyte distribution width (RBC) [Ratio] 14.2 % Invalid Interpretation Code 11.5 - 15.5 % AH Remisol SS GFR/1.73 sq M.predicted among blacks MDRD (S/P/Bld) [Vol rate/Area] ml/min/1.73sqm Invalid Interpretation Code Chemistry S GFR/1.73 sq M.predicted among non-blacks MDRD (S/P/Bld) [Vol rate/Area] ml/min/1.73sqm Invalid Interpretation Code Chemistry S Glucose [Mass/Vol] 123 mg/dL Invalid Interpretation Code 82 - 115 mg/dL ADM SS Hematocrit (Bld) [Volume fraction] 32.4 % Invalid Interpretation Code 34.0 - 46.0 % Remisol SS Hemoglobin (Bld) [Mass/Vol] 10.7 G/dL Invalid Interpretation Code 12.0 - 16.0 G/dL AH Remisol SS Lymphocytes (Bld) [#/Vol] 0.80 103/mcL Invalid Interpretation Code 0.90 - 4.32 10^3/mcL AH Remisol SS Lymphocytes/100 WBC (Bld) 8.5 % Invalid Interpretation Code 20.0 - 40.0 % Remisol SS MCH (RBC) [Entitic mass] 28.0 pg Invalid Interpretation Code 27.0 - 33.0 pg Remisol SS MCHC (RBC) [Mass/Vol] 33.1 G/dL Invalid Interpretation Code 32.0 - 36.0 G/dL AH Remisol SS MCV (RBC) [Entitic vol] 84.6 fL Invalid Interpretation Code 80.0 - 99.0 fL AH Remisol SS Monocytes (Bld) [#/Vol] 1.00 103/mcL Invalid Interpretation Code 0.09 - 1.40 10^3/mcL AH Remisol SS Monocytes/100 WBC (Bld) 10.3 % Invalid Interpretation Code 2.0 - 13.0 % AH Remisol SS Neutrophils (Bld) [#/Vol] 7.40 103/mcL Invalid Interpretation Code 2.25 - 8.10 10^3/mcL AH Remisol SS Neutrophils/100 WBC (Bld) 79.3 % Invalid Interpretation Code 50.0 - 75.0 % AH Remisol SS Platelet mean volume (Bld) [Entitic vol] 9.5 fL Invalid Interpretation Code 6.6 - 10.5 fL AH Remisol SS Platelets (Bld) [#/Vol] 170 103/mcL Invalid Interpretation Code 150 - 450 10^3/mcL AH Remisol SS Potassium [Moles/Vol] 4.0 mmol/L Invalid Interpretation Code 3.5 - 5.0 mEq/L AH ADM SS Comment on above: Result Comment: Spec imen slightly hemolyzed. RBC (Bld) [#/Vol] 3.83 106/mcL Invalid Interpretation Code 4.10 - 5.30 10^6/mcL AH Remisol SS Sodium [Moles/Vol] 134 mmol/L Invalid Interpretation Code 136 - 145 mEq/L AH ADM SS Urea nitrogen [Mass/Vol] 14.0 mg/dL Invalid Interpretation Code 8.0 - 22.0 mg/dL AH ADM SS Urea nitrogen/Creatinine [Mass ratio] 18.4 ratio Invalid Interpretation Code 10.0 - 22.0 ratio AH ADM SS WBC (Bld) [#/Vol] 9.30 103/mcL Invalid Interpretation Code 4.50 - 10.80 10^3/mcL AH Remisol SS .Auto Diffon 08-30-2021 Basophil, Absolute 0.00 10 3/mcL Normal 0.00-0.27 [facility] ([place]) Comment on above: Performed By: #### B MP, ANEU, GFR, ADIFF, CBC #### [address] [address] Basophils/100 WBC (Bld) 0.2 % Normal 0.0-2.5 A [facility]ly [facility] ([place]) Comment on above: Performed By: #### B MP, ANEU, GFR, ADIFF, CBC #### [address] [address] Eosinophil, Absolute 0.00 10 3/mcL Normal 0.00-0.65 A [facility] ([place]) Comment on above: Performed By: #### B MP, ANEU, GFR, ADIFF, CBC #### [address] [address] Eosinophils/100 WBC (Bld) 0.0 % Normal 0.0-6.0 [facility] ([place] Comment on above: Performed By: #### B MP, ANEU, GFR, ADIFF, CBC #### [address] [address] Lymphocyte, Absolute 0.70 10 3/mcL Low 0.90-4.32 A [facility]ly [facility] ([place]) Comment on above: Performed By: #### B MP, ANEU, GFR, ADIFF, CBC #### [address] [address] Lymphocytes/100 WBC (Bld) 7.2 % Low 20.0-40.0 [facility] ([place] Comment on above: Performed By: #### B MP, ANEU, GFR, ADIFF, CBC #### [address] [address] Monocyte, Absolute 1.10 10 3/mcL Normal 0.09-1.40 [facility] ([place]) Comment on above: Performed By: #### B MP, ANEU, GFR, ADIFF, CBC #### [address] [address] Monocytes/100 WBC (Bld) 11.6 % Normal 2.0-13.0 A [facility] ([place]) Comment on above: Performed By: #### B MP, ANEU, GFR, ADIFF, CBC #### [address] [address] Neutrophils/100 WBC (Bld) 81.0 % High 50.0-75.0 [facility] ([place] Comment on above: Performed By: #### B MP, ANEU, GFR, ADIFF, CBC #### [address] [address] .GFRon 08-30-2021 GFR >60 Normal [facility] ([place]) Comment on above: Result Comment: GFR Population mean for , Non- Americans Ages 20-29 = 116 mL/min/1.73 sq.m. Ages 30-39 = 107 mL/min/1.73 sq.m. Ages 40-49 = 99 mL/min/1.73 sq.m. Ages 50-59 = 93 mL/min/1.73 sq.m. Ages 60-69 = 85 mL/min/1.73 sq.m. Ages 70+ = 75 mL/min/1.73 sq.m. Chronic Kidney Disease: Less than 60 mL/min/1.73 square meters End Stage Renal Disease: Less than 15 mL/min/1.73 square meters Performed By: #### B MP, ANEU, GFR, ADIFF, CBC #### [address] [address] GFR Non- >60 Normal [facility] ([place] Comment on above: Result Comment: GFR Population mean for , Non- Americans Ages 20-29 = 116 mL/min/1.73 sq.m. Ages 30-39 = 107 mL/min/1.73 sq.m. Ages 40-49 = 99 mL/min/1.73 sq.m. Ages 50-59 = 93 mL/min/1.73 sq.m. Ages 60-69 = 85 mL/min/1.73 sq.m. Ages 70+ = 75 mL/min/1.73 sq.m. Chronic Kidney Disease: Less than 60 mL/min/1.73 square meters End Stage Renal Disease: Less than 15 mL/min/1.73 square meters Performed By: #### B MP, ANEU, GFR, ADIFF, CBC #### [place] [address] .NEUABSon 08-30-2021 Neutrophil, Absolute 7.50 10 3/mcL Normal 2.25-8.10 A [facility] ([place]) Comment on above: Performed By: #### B MP, ANEU, GFR, ADIFF, CBC #### [address] [address] BMPon 08-30-2021 BUN/Creatinine Ratio 16.7 ratio Normal 10.0-22.0 [facility] ([place]) Comment on above: Performed By: #### B MP, ANEU, GFR, ADIFF, CBC #### [address] [address] Calcium [Mass/Vol] 8.4 mg/dL Low 8.7-10.4 [facility] [place] Comment on above: Result Comment: No te - New Reference Range in effect 20 Performed By: #### B MP, ANEU, GFR, ADIFF, CBC #### [address] [address] Chloride [Moles/Vol] 111 mmol/L High 98-110 [facility] ([place]) Comment on above: Performed By: #### B MP, ANEU, GFR, ADIFF, CBC #### [address] [address] CO2 [Moles/Vol] 26 mmol/L Normal 22-32 [facility] ([place] Comment on above: Performed By: #### B MP, ANEU, GFR, ADIFF, CBC #### [place] [id number] Creatinine [Mass/Vol] 0.54 mg/dL Normal 0.50-1.20 [facility] ([place] Comment on above: Performed By: #### B MP, ANEU, GFR, ADIFF, CBC #### [place] [address] Electrolyte Balance 0.0 mEq/L Low 4.0-15.0 [facility] ([place]) Comment on above: Performed By: #### B MP, ANEU, GFR, ADIFF, CBC #### [place] [address] Glucose [Mass/Vol] 106 mg/dL Normal 82-115 [facility] [place] Comment on above: Performed By: #### B MP, ANEU, GFR, ADIFF, CBC #### [place] [address] Potassium [Moles/Vol] 4.0 mmol/L Normal 3.5-5.0 [facility] ([place] Comment on above: Performed By: #### B MP, ANEU, GFR, ADIFF, CBC #### [place] [address] Sodium [Moles/Vol] 137 mmol/L Normal 136-145 [facility] [place] Comment on above: Performed By: #### B MP, ANEU, GFR, ADIFF, CBC #### [place] [address] Urea nitrogen [Mass/Vol] 9.0 mg/dL Normal 8.0-22.0 [facility] [place] Comment on above: Performed By: #### B MP, ANEU, GFR, ADIFF, CBC #### [address] [address] CBCon 08-30-2021 Erythrocyte distribution width (RBC) [Ratio] 13.9 % Normal 11.5-15.5 [facility] ([place] Comment on above: Performed By: #### B MP, ANEU, GFR, ADIFF, CBC #### [place] [address] Hematocrit (Bld) [Volume fraction] 35.0 % Normal 34.0-46.0 [facility] [place] Comment on above: Performed By: #### B MP, ANEU, GFR, ADIFF, CBC #### [place] [address] Hgb 11.5 G/dL Low 12.0-16.0 [facility] [place] Comment on above: Performed By: #### B MP, ANEU, GFR, ADIFF, CBC #### [place] [address] MCH (RBC) [Entitic mass] 27.8 pg Normal 27.0-33.0 [facility] [place] Comment on above: Performed By: #### B MP, ANEU, GFR, ADIFF, CBC #### [place] [address] MCHC 32.7 G/dL Normal 32.0-36.0 [facility] ([place] Comment on above: Performed By: #### B MP, ANEU, GFR, ADIFF, CBC #### [place] [address] MCV (RBC) [Entitic vol] 85.1 fL Normal 80.0-99.0 A [facility] ([place] Comment on above: Performed By: #### B MP, ANEU, GFR, ADIFF, CBC #### [place] [address] Platelet 193 10 3/mcL Normal 150-450 [facility] [place] Comment on above: Performed By: #### B MP, ANEU, GFR, ADIFF, CBC #### [place] [address] Platelet mean volume (Bld) [Entitic vol] 9.6 fL Normal 6.6-10.5 [facility] [place] Comment on above: Performed By: #### B MP, ANEU, GFR, ADIFF, CBC #### [place] [address] RBC 4.12 10 6/mcL Normal 4.10-5.30 [facility] [place] Comment on above: Performed By: #### B MP, ANEU, GFR, ADIFF, CBC #### [place] [address] WBC 9.20 10 3/mcL Normal 4.50-10.80 [facility] [place] Comment on above: Performed By: #### B MP, ANEU, GFR, ADIFF, CBC #### [place] [address] LABORATORYOrdered By: SYSTEM SYSTEM on 08-30-2021 Basophils (Bld) [#/Vol] 0.00 103/mcL Invalid Interpretation Code 0.00 - 0.27 10^3/mcL AH Remisol SS Basophils/100 WBC (Bld) 0.2 % Invalid Interpretation Code 0.0 - 2.5 % AH Remisol SS Calcium [Mass/Vol] 8.4 mg/dL Invalid Interpretation Code 8.7 - 10.4 mg/dL ADM SS Chloride [Moles/Vol] 111 mmol/L Invalid Interpretation Code 98 - 110 mEq/L ADM SS CO2 [Moles/Vol] 26 mmol/L Invalid Interpretation Code 22 - 32 mEq/L AH ADM SS Creatinine [Mass/Vol] 0.54 mg/dL Invalid Interpretation Code 0.50 - 1.20 mg/dL AH ADM SS Electrolyte Balance 0.0 mEq/L Invalid Interpretation Code 4.0 - 15.0 mEq/L AH ADM SS Eosinophils (Bld) [#/Vol] 0.00 103/mcL Invalid Interpretation Code 0.00 - 0.65 10^3/mcL AH Remisol SS Eosinophils/100 WBC (Bld) 0.0 % Invalid Interpretation Code 0.0 - 6.0 % AH Remisol SS Erythrocyte distribution width (RBC) [Ratio] 13.9 % Invalid Interpretation Code 11.5 - 15.5 % AH Remisol SS GFR/1.73 sq M.predicted among blacks MDRD (S/P/Bld) [Vol rate/Area] ml/min/1.73sqm Invalid Interpretation Code Chemistry S GFR/1.73 sq M.predicted among non-blacks MDRD (S/P/Bld) [Vol rate/Area] ml/min/1.73sqm Invalid Interpretation Code Chemistry S Glucose [Mass/Vol] 106 mg/dL Invalid Interpretation Code 82 - 115 mg/dL ADM SS Hematocrit (Bld) [Volume fraction] 35.0 % Invalid Interpretation Code 34.0 - 46.0 % Remisol SS Hemoglobin (Bld) [Mass/Vol] 11.5 G/dL Invalid Interpretation Code 12.0 - 16.0 G/dL AH Remisol SS Lymphocytes (Bld) [#/Vol] 0.70 103/mcL Invalid Interpretation Code 0.90 - 4.32 10^3/mcL AH Remisol SS Lymphocytes/100 WBC (Bld) 7.2 % Invalid Interpretation Code 20.0 - 40.0 % Remisol SS MCH (RBC) [Entitic mass] 27.8 pg Invalid Interpretation Code 27.0 - 33.0 pg Remisol SS MCHC (RBC) [Mass/Vol] 32.7 G/dL Invalid Interpretation Code 32.0 - 36.0 G/dL AH Remisol SS MCV (RBC) [Entitic vol] 85.1 fL Invalid Interpretation Code 80.0 - 99.0 fL AH Remisol SS Monocytes (Bld) [#/Vol] 1.10 103/mcL Invalid Interpretation Code 0.09 - 1.40 10^3/mcL AH Remisol SS Monocytes/100 WBC (Bld) 11.6 % Invalid Interpretation Code 2.0 - 13.0 % Remisol SS Neutrophils (Bld) [#/Vol] 7.50 103/mcL Invalid Interpretation Code 2.25 - 8.10 10^3/mcL AH Remisol SS Neutrophils/100 WBC (Bld) 81.0 % Invalid Interpretation Code 50.0 - 75.0 % AH Remisol SS Platelet mean volume (Bld) [Entitic vol] 9.6 fL Invalid Interpretation Code 6.6 - 10.5 fL AH Remisol SS Platelets (Bld) [#/Vol] 193 103/mcL Invalid Interpretation Code 150 - 450 10^3/mcL AH Remisol SS Potassium [Moles/Vol] 4.0 mmol/L Invalid Interpretation Code 3.5 - 5.0 mEq/L AH ADM SS RBC (Bld) [#/Vol] 4.12 106/mcL Invalid Interpretation Code 4.10 - 5.30 10^6/mcL AH Remisol SS Sodium [Moles/Vol] 137 mmol/L Invalid Interpretation Code 136 - 145 mEq/L AH ADM SS Urea nitrogen [Mass/Vol] 9.0 mg/dL Invalid Interpretation Code 8.0 - 22.0 mg/dL AH ADM SS Urea nitrogen/Creatinine [Mass ratio] 16.7 ratio Invalid Interpretation Code 10.0 - 22.0 ratio AH ADM SS WBC (Bld) [#/Vol] 9.20 103/mcL Invalid Interpretation Code 4.50 - 10.80 10^3/mcL AH Remisol SS .Auto Diffon 08-29-2021 Basophil, Absolute 0.10 10 3/mcL Normal 0.00-0.27 [facility] ([place]) Comment on above: Performed By: #### B MP, ANEU, GFR, ADIFF, CBC #### [address] [address] Basophils/100 WBC (Bld) 0.9 % Normal 0.0-2.5 A [facility] ([place]) Comment on above: Performed By: #### B MP, ANEU, GFR, ADIFF, CBC #### [address] [address] Eosinophil, Absolute 0.00 10 3/mcL Normal 0.00-0.65 A [facility] ([place]) Comment on above: Performed By: #### B MP, ANEU, GFR, ADIFF, CBC #### [address] [address] Eosinophils/100 WBC (Bld) 0.1 % Normal 0.0-6.0 [facility] [place] Comment on above: Performed By: #### B MP, ANEU, GFR, ADIFF, CBC #### [address] [address] Lymphocyte, Absolute 0.50 10 3/mcL Low 0.90-4.32 A [facility] ([place] Comment on above: Performed By: #### B MP, ANEU, GFR, ADIFF, CBC #### [address] [address] Lymphocytes/100 WBC (Bld) 4.9 % Low 20.0-40.0 [facility] [place] Comment on above: Performed By: #### B MP, ANEU, GFR, ADIFF, CBC #### [address] [address] Monocyte, Absolute 0.50 10 3/mcL Normal 0.09-1.40 [facility] ([place] Comment on above: Performed By: #### B MP, ANEU, GFR, ADIFF, CBC #### [address] [address] Monocytes/100 WBC (Bld) 4.8 % Normal 2.0-13.0 [facility] ([place]) Comment on above: Performed By: #### B MP, ANEU, GFR, ADIFF, CBC #### [address] [address] Neutrophils/100 WBC (Bld) 89.3 % High 50.0-75.0 [facility] ([place] Comment on above: Performed By: #### B MP, ANEU, GFR, ADIFF, CBC #### [address] [address] .GFRon 08-29-2021 GFR >60 Normal [facility] ([place] Comment on above: Result Comment: GFR Population mean for , Non- Americans Ages 20-29 = 116 mL/min/1.73 sq.m. Ages 30-39 = 107 mL/min/1.73 sq.m. Ages 40-49 = 99 mL/min/1.73 sq.m. Ages 50-59 = 93 mL/min/1.73 sq.m. Ages 60-69 = 85 mL/min/1.73 sq.m. Ages 70+ = 75 mL/min/1.73 sq.m. Chronic Kidney Disease: Less than 60 mL/min/1.73 square meters End Stage Renal Disease: Less than 15 mL/min/1.73 square meters Performed By: #### B MP, ANEU, GFR, ADIFF, CBC #### [address] [address] GFR Non- >60 Normal [facility] ([place] Comment on above: Result Comment: GFR Population mean for , Non- Americans Ages 20-29 = 116 mL/min/1.73 sq.m. Ages 30-39 = 107 mL/min/1.73 sq.m. Ages 40-49 = 99 mL/min/1.73 sq.m. Ages 50-59 = 93 mL/min/1.73 sq.m. Ages 60-69 = 85 mL/min/1.73 sq.m. Ages 70+ = 75 mL/min/1.73 sq.m. Chronic Kidney Disease: Less than 60 mL/min/1.73 square meters End Stage Renal Disease: Less than 15 mL/min/1.73 square meters Performed By: #### B MP, ANEU, GFR, ADIFF, CBC #### [address] [address] .NEUABSon 08-29-2021 Neutrophil, Absolute 9.00 10 3/mcL High 2.25-8.10 A [facility] ([place] Comment on above: Performed By: #### B MP, ANEU, GFR, ADIFF, CBC #### [address] [address] ABO/Rh (Gel)on 08-29-2021 ABO/Rh Interp AB POS Invalid Interpretation Code [facility] [place] Comment on above: Performed By: #### B MP, ANEU, GFR, ADIFF, CBC #### [address] [address] ABS (Gel)on 08-29-2021 ABSC Interp (Gel) Negative Normal [facility] [place] Comment on above: Performed By: #### B MP, ANEU, GFR, ADIFF, CBC #### [address] [address] CBCon 08-29-2021 Erythrocyte distribution width (RBC) [Ratio] 14.2 % Normal 11.5-15.5 [facility] [place] Comment on above: Performed By: #### B MP, ANEU, GFR, ADIFF, CBC #### [place] [address] Hematocrit (Bld) [Volume fraction] 42.5 % Normal 34.0-46.0 [facility] [place] Comment on above: Performed By: #### B MP, ANEU, GFR, ADIFF, CBC #### [place] [address] Hgb 13.7 G/dL Normal 12.0-16.0 [facility] [place] Comment on above: Performed By: #### B MP, ANEU, GFR, ADIFF, CBC #### [place] [address] MCH (RBC) [Entitic mass] 27.4 pg Normal 27.0-33.0 [facility] [place] Comment on above: Performed By: #### B MP, ANEU, GFR, ADIFF, CBC #### [place] [address] MCHC 32.1 G/dL Normal 32.0-36.0 [facility] [place] Comment on above: Performed By: #### B MP, ANEU, GFR, ADIFF, CBC #### [place] [address] MCV (RBC) [Entitic vol] 85.3 fL Normal 80.0-99.0 A [facility] ([place] Comment on above: Performed By: #### B MP, ANEU, GFR, ADIFF, CBC #### [place] [address] Platelet 211 10 3/mcL Normal 150-450 [facility] [place] Comment on above: Performed By: #### B MP, ANEU, GFR, ADIFF, CBC #### [place] [address] Platelet mean volume (Bld) [Entitic vol] 9.6 fL Normal 6.6-10.5 [facility] [place] Comment on above: Performed By: #### B MP, ANEU, GFR, ADIFF, CBC #### [place] [address] RBC 4.99 10 6/mcL Normal 4.10-5.30 [facility] [place] Comment on above: Performed By: #### B MP, ANEU, GFR, ADIFF, CBC #### [address] [address] WBC 10.10 10 3/mcL Normal 4.50-10.80 [facility] [place] Comment on above: Performed By: #### B MP, ANEU, GFR, ADIFF, CBC #### [place] [address] CMPon 08-29-2021 Albumin Level 3.1 G/dL Low 3.2-4.8 [facility] [place] Comment on above: Performed By: #### B MP, ANEU, GFR, ADIFF, CBC #### [place] [address] Albumin/Globulin [Mass ratio] 1.0 {ratio} Normal 0.9-1.6 [facility] [place] Comment on above: Performed By: #### B MP, ANEU, GFR, ADIFF, CBC #### [address] [address] ALP [Catalytic activity/Vol] 130 U/L High 38-126 [facility] [place] Comment on above: Performed By: #### B MP, ANEU, GFR, ADIFF, CBC #### [address] [address] ALT [Catalytic activity/Vol] 14 U/L Normal 10-49 [facility] [place] Comment on above: Performed By: #### B MP, ANEU, GFR, ADIFF, CBC #### [address] [address] AST [Catalytic activity/Vol] 21 U/L Normal 8-34 [facility] [place] Comment on above: Performed By: #### B MP, ANEU, GFR, ADIFF, CBC #### [place] [phone] Bili Total 0.30 mg/dL Normal 0.20-1.20 [facility] [place] Comment on above: Result Comment: Use of this assay is not recommended for patients undergoing treatment with eltrombopag due to the potential for falsely elevated results. Performed By: #### B MP, ANEU, GFR, ADIFF, CBC #### [place] [address] BUN/Creatinine Ratio 18.0 ratio Normal 10.0-22.0 [facility] ([place] Comment on above: Performed By: #### B MP, ANEU, GFR, ADIFF, CBC #### [place] [address] Calcium [Mass/Vol] 8.2 mg/dL Low 8.7-10.4 [facility] [place] Comment on above: Result Comment: No te - New Reference Range in effect 20 Performed By: #### B MP, ANEU, GFR, ADIFF, CBC #### [place] [address] Chloride [Moles/Vol] 110 mmol/L Normal 98-110 [facility] ([place] Comment on above: Performed By: #### B MP, ANEU, GFR, ADIFF, CBC #### [place] [id number] CO2 [Moles/Vol] 19 mmol/L Low 22-32 [facility] [place] Comment on above: Performed By: #### B MP, ANEU, GFR, ADIFF, CBC #### [place] [id number] Creatinine [Mass/Vol] 0.50 mg/dL Normal 0.50-1.20 [facility] ([place] Comment on above: Performed By: #### B MP, ANEU, GFR, ADIFF, CBC #### [place] [phone] Electrolyte Balance 5.0 mEq/L Normal 4.0-15.0 [facility] ([place]) Comment on above: Performed By: #### B MP, ANEU, GFR, ADIFF, CBC #### [place] [id number] Globulin 3.1 G/dL Normal 1.5-3.8 [facility] [place] Comment on above: Performed By: #### B MP, ANEU, GFR, ADIFF, CBC #### [address] [address] Glucose [Mass/Vol] 146 mg/dL High 82-115 [facility] [place] Comment on above: Performed By: #### B MP, ANEU, GFR, ADIFF, CBC #### [address] [address] Potassium [Moles/Vol] 4.2 mmol/L Normal 3.5-5.0 [facility] ([place] Comment on above: Result Comment: Spec imen slightly hemolyzed. Performed By: #### B MP, ANEU, GFR, ADIFF, CBC #### [address] [address] Sodium [Moles/Vol] 134 mmol/L Low 136-145 [facility] [place] Comment on above: Performed By: #### B MP, ANEU, GFR, ADIFF, CBC #### [address] [address] Total Protein 6.2 G/dL Normal 5.7-8.2 [facility] [place] Comment on above: Result Comment: No te - New Reference Range in effect 20 Performed By: #### B MP, ANEU, GFR, ADIFF, CBC #### [address] [address] Urea nitrogen [Mass/Vol] 9.0 mg/dL Normal 8.0-22.0 [facility] [place] Comment on above: Performed By: #### B MP, ANEU, GFR, ADIFF, CBC #### [address] [address] LABORATORYOrdered By: Latoya Castellon on 08-29-2021 ABO and Rh group Nom (Bld) Blood group AB Rh(D) positive Invalid Interpretation Code AH BB Auto SS Blood group antibody screen Ql NEG (08/29/21 1:33 AM) Invalid Interpretation Code AH BB Auto SS LABORATORYOrdered By: SYSTEM SYSTEM on 08-29-2021 Albumin BCP dye [Mass/Vol] 3.1 G/dL Invalid Interpretation Code 3.2 - 4.8 G/dL ADM SS Albumin/Globulin [Mass ratio] 1.0 {ratio} Invalid Interpretation Code 0.9 - 1.6 ratio ADM SS ALP [Catalytic activity/Vol] 130 U/L Invalid Interpretation Code 38 - 126 U/L ADM SS ALT No additional P-5'-P [Catalytic activity/Vol] 14 U/L Invalid Interpretation Code 10 - 49 U/L ADM SS AST [Catalytic activity/Vol] 21 U/L Invalid Interpretation Code 8 - 34 U/L ADM SS Basophils (Bld) [#/Vol] 0.10 103/mcL Invalid Interpretation Code 0.00 - 0.27 10^3/mcL AH Remisol SS Basophils/100 WBC (Bld) 0.9 % Invalid Interpretation Code 0.0 - 2.5 % Remisol SS Bilirubin [Mass/Vol] 0.30 mg/dL Invalid Interpretation Code 0.20 - 1.20 mg/dL ADM SS Calcium [Mass/Vol] 8.2 mg/dL Invalid Interpretation Code 8.7 - 10.4 mg/dL ADM SS Chloride [Moles/Vol] 110 mmol/L Invalid Interpretation Code 98 - 110 mEq/L ADM SS CO2 [Moles/Vol] 19 mmol/L Invalid Interpretation Code 22 - 32 mEq/L ADM SS Creatinine [Mass/Vol] 0.50 mg/dL Invalid Interpretation Code 0.50 - 1.20 mg/dL AH ADM SS Electrolyte Balance 5.0 mEq/L Invalid Interpretation Code 4.0 - 15.0 mEq/L ADM SS Eosinophils (Bld) [#/Vol] 0.00 103/mcL Invalid Interpretation Code 0.00 - 0.65 10^3/mcL Remisol SS Eosinophils/100 WBC (Bld) 0.1 % Invalid Interpretation Code 0.0 - 6.0 % AH Remisol SS Erythrocyte distribution width (RBC) [Ratio] 14.2 % Invalid Interpretation Code 11.5 - 15.5 % AH Remisol SS GFR/1.73 sq M.predicted among blacks MDRD (S/P/Bld) [Vol rate/Area] ml/min/1.73sqm Invalid Interpretation Code Chemistry S GFR/1.73 sq M.predicted among non-blacks MDRD (S/P/Bld) [Vol rate/Area] ml/min/1.73sqm Invalid Interpretation Code Chemistry S Globulin 3.1 G/dL Invalid Interpretation Code 1.5 - 3.8 G/dL AH ADM SS Glucose [Mass/Vol] 146 mg/dL Invalid Interpretation Code 82 - 115 mg/dL AH ADM SS Hematocrit (Bld) [Volume fraction] 42.5 % Invalid Interpretation Code 34.0 - 46.0 % AH Remisol SS Hemoglobin (Bld) [Mass/Vol] 13.7 G/dL Invalid Interpretation Code 12.0 - 16.0 G/dL AH Remisol SS Lymphocytes (Bld) [#/Vol] 0.50 103/mcL Invalid Interpretation Code 0.90 - 4.32 10^3/mcL AH Remisol SS Lymphocytes/100 WBC (Bld) 4.9 % Invalid Interpretation Code 20.0 - 40.0 % AH Remisol SS MCH (RBC) [Entitic mass] 27.4 pg Invalid Interpretation Code 27.0 - 33.0 pg AH Remisol SS MCHC (RBC) [Mass/Vol] 32.1 G/dL Invalid Interpretation Code 32.0 - 36.0 G/dL AH Remisol SS MCV (RBC) [Entitic vol] 85.3 fL Invalid Interpretation Code 80.0 - 99.0 fL AH Remisol SS Monocytes (Bld) [#/Vol] 0.50 103/mcL Invalid Interpretation Code 0.09 - 1.40 10^3/mcL AH Remisol SS Monocytes/100 WBC (Bld) 4.8 % Invalid Interpretation Code 2.0 - 13.0 % AH Remisol SS Neutrophils (Bld) [#/Vol] 9.00 103/mcL Invalid Interpretation Code 2.25 - 8.10 10^3/mcL AH Remisol SS Neutrophils/100 WBC (Bld) 89.3 % Invalid Interpretation Code 50.0 - 75.0 % AH Remisol SS Platelet mean volume (Bld) [Entitic vol] 9.6 fL Invalid Interpretation Code 6.6 - 10.5 fL AH Remisol SS Platelets (Bld) [#/Vol] 211 103/mcL Invalid Interpretation Code 150 - 450 10^3/mcL AH Remisol SS Potassium [Moles/Vol] 4.2 mmol/L Invalid Interpretation Code 3.5 - 5.0 mEq/L AH ADM SS Comment on above: Result Comment: Spec imen slightly hemolyzed. Protein [Mass/Vol] 6.2 G/dL Invalid Interpretation Code 5.7 - 8.2 G/dL AH ADM SS RBC (Bld) [#/Vol] 4.99 106/mcL Invalid Interpretation Code 4.10 - 5.30 10^6/mcL AH Remisol SS Sodium [Moles/Vol] 134 mmol/L Invalid Interpretation Code 136 - 145 mEq/L AH ADM SS Urea nitrogen [Mass/Vol] 9.0 mg/dL Invalid Interpretation Code 8.0 - 22.0 mg/dL AH ADM SS Urea nitrogen/Creatinine [Mass ratio] 18.0 ratio Invalid Interpretation Code 10.0 - 22.0 ratio AH ADM SS WBC (Bld) [#/Vol] 10.10 103/mcL Invalid Interpretation Code 4.50 - 10.80 10^3/mcL AH Remisol SS XR CHEST 1 VIEWon 08-29-2021 XR CHEST 1 VIEW ORIGINAL EXAMINATION: ONE XRAY VIEW OF THE CHEST 08/28/2021 10:55 pm COMPARISON: 02/02/2019 HISTORY: ORDERING SYSTEM PROVIDED HISTORY: Reason for Exam: SOB Patient fell onto chest. FINDINGS: The lungs are without acute focal process. There is no effusion or pneumothorax. The cardiomediastinal silhouette is without acute process. The osseous structures are without acute process. IMPRESSION: No acute process. There is loss of spatial and contrast resolution due to large body habitus. Interpreted by: Willie Junior DO Preliminary Report By: Willie Junior DO Electronically signed By Willie Junior DO Dictated Date: 08/28/2021 11:07:16 PM Prelim Date: 08/28/2021 11:08:21 PM Sign Date: 08/28/2021 11:08:21 PM Ordering Provider: NASREEN REYNAGA [facility] ([place] XR FEMUR MINIMUM 2 VIEWS [facility] 08-29-2021 XR FEMUR MINIMUM 2 VIEWS LEFT ORIGINAL EXAMINATION: TWO XRAY VIEWS OF THE LEFT FEMUR 08/28/2021 10:56 pm COMPARISON: None. HISTORY: ORDERING SYSTEM PROVIDED HISTORY: Reason for Exam: pain Recent fall on ice. FINDINGS: Acute displaced basicervical fracture affects the left hip. There is no subluxation of the femoral head. Remaining skeletal elements are intact. IMPRESSION: 1. Acute impacted basicervical fracture left hip. Interpreted by: Willie Junior DO Preliminary Report By: Willie Junior DO Electronically signed By Willie Junior DO Dictated Date: 08/28/2021 11:08:30 PM Prelim Date: 08/28/2021 11:09:16 PM Sign Date: 08/28/2021 11:09:16 PM Ordering Provider: NASREEN REYNAGA [facility] [place] X[place] HIP LEFT W/PELVIS 4 VIEWS on 08-29-2021 XR HIP LEFT W/PELVIS 4 VIEWS ORIGINAL EXAMINATION: 2 x-ray views of the left hip/pelvis COMPARISON: Pelvis/femur x-ray 08/28/2021. HISTORY: ORDERING SYSTEM PROVIDED HISTORY: Reason for Exam: Follow Up Arthroplasty FINDINGS: There is interval left hip arthroplasty. Hardware appears intact. No acute fracture or dislocation. Soft tissue swelling and subcutaneous emphysema is noted along the left proximal femur. Skin dale are noted along the left hip. IMPRESSION: Expected postsurgical changes of left hip arthroplasty. I have personally reviewed the images of this examination and agree with the resident's findings and interpretation. Interpreted by: Willie Junior DO Preliminary Report By: Eliud Duvall Electronically signed By Willie Junior DO Dictated Date: 08/29/2021 6:24:51 PM Prelim Date: 08/29/2021 6:26:29 PM Sign Date: 08/29/2021 6:32:10 PM Ordering Provider: BELLA GILLESPIE [facility] [place] XR PELVIS 1 OR 2 VIEWSon XR PELVIS 1 OR 2 VIEWS ORIGINAL EXAMINATION: ONE XRAY VIEW OF THE PELVIS 08/28/2021 10:57 pm COMPARISON: None. HISTORY: ORDERING SYSTEM PROVIDED HISTORY: Reason for Exam: pain Patient fell on ice. FINDINGS: Impacted basicervical fracture redemonstrated left hip. The bony pelvic ring is intact. There is a nonspecific bowel gas pattern. IMPRESSION: 1. Basicervical fracture left hip. Interpreted by: Willie Junior DO Preliminary Report By: Willie Junior DO Electronically signed By Willie Junior DO Dictated Date: 08/28/2021 11:09:27 PM Prelim Date: 08/28/2021 11:10:03 PM Sign Date: 08/28/2021 11:10:03 PM Ordering Provider: NASREEN REYNAGA [facility] [place] X[place] Chest PA and Lateralon IMPRESSION: Chronic interstitial lung changes with increased nodular bandlike density in the left mid lung which could represent mucous plugging or airways inflammation area of previous bronchiectasis and scarring. Otherwise, lungs are stable and clear. Bike Mechanic: SABINO Transcribe Date/Time: May 01 2021 2:32P Dictated by : BETSEY DILLON MD This examination was interpreted and the report reviewed and electronically signed by: BETSEY DILLON MD on May 01 2021 2:37PM [facility] DIVISION OF RADIOLOGY * * *Final Report* * * DATE OF EXAM: May 01 2021 2:13PM WOX [id number] - XR CHEST 2V FRONTAL/LAT / PROCEDURE REASON: multiple diagnoses * * * * Physician Interpretation * * * * EXAMINATION: CHEST RADIOGRAPH (2 VIEW FRONTAL & LATERAL) CLINICAL HISTORY: Post-COVID. Chronic fatigue. MQ: XC2_6 EXAM DATE/TIME: 05/01/2021 2:13 PM COMPARISON: Comparison is made to prior chest radiographic study dated April and a CT chest dated 03/03/2020. RESULT: Lines, tubes, and devices: None. Lungs and pleura: There is calcified residual of old granulomatous infection and chronic interstitial lung changes with lingular and bibasilar fibrotic scarring. Chronic fibrotic scarring at the right lung base medially is grossly stable when compared to prior CT. Nodular pleural parenchymal stranding in the left midlung correlates to an area of previous scarring and bronchiectasis. It appears slightly increased which could indicate the presence of mucous plugging or airways inflammation. There is no acute focal consolidation or acute pleural process/fluid. There is no vascular redistribution to suggest pulmonary edema. Cardiomediastinal silhouette: The cardiac, mediastinal and hilar shadows are unchanged and remain within normal limits. Other: The bony structures are intact DIVISION OF RADIOLOGY Provider, Gabrielle Sam [facility] - 05/01/2021 * * *Final Report* * * DATE OF EXAM: May 01 2021 2:13PM WOX 5291 - XR CHEST 2V FRONTAL/LAT / PROCEDURE REASON: multiple diagnoses * * * * Physician Interpretation * * * * EXAMINATION: CHEST RADIOGRAPH (2 VIEW FRONTAL & LATERAL) CLINICAL HISTORY: Post-COVID. Chronic fatigue. MQ: XC2_6 EXAM DATE/TIME: 05/01/2021 2:13 PM COMPARISON: Comparison is made to prior chest radiographic study dated April and a CT chest dated 03/03/2020. RESULT: Lines, tubes, and devices: None. Lungs and pleura: There is calcified residual of old granulomatous infection and chronic interstitial lung changes with lingular and bibasilar fibrotic scarring. Chronic fibrotic scarring at the right lung base medially is grossly stable when compared to prior CT. Nodular pleural parenchymal stranding in the left midlung correlates to an area of previous scarring and bronchiectasis. It appears slightly increased which could indicate the presence of mucous plugging or airways inflammation. There is no acute focal consolidation or acute pleural process/fluid. There is no vascular redistribution to suggest pulmonary edema. Cardiomediastinal silhouette: The cardiac, mediastinal and hilar shadows are unchanged and remain within normal limits. Other: The bony structures are intact IMPRESSION IMPRESSION: Chronic interstitial lung changes with increased nodular bandlike density in the left mid lung which could represent mucous plugging or airways inflammation area of previous bronchiectasis and scarring. Otherwise, lungs are stable and clear. Bike Mechanic: PSCB Transcribe Date/Time: May 01 2021 2:32P Dictated by : BETSEY DILLON MD This examination was interpreted and the report reviewed and electronically signed by: BETSEY DILLON MD on May 01 2021 2:37PM EST [facility] Radiology [facility]ative[facility] Chest PA and LateralOrder ed By: [facility] Provider on 05-01-2021 [facility] XR KNEE GENERAL 4V AP BOTH/P A BOTH/LAT/MERC RTon 02-08-2021 [facility] BD DXA - AXIAL SKELETONon BD DXA - AXIAL SKELETON Final Report DATE OF EXAM: May 10 2020 3:56PM AWX [id number] - BD DXA - AXIAL SKELETON / PROCEDURE REASON: Osteoporosis, unspecified osteoporosis type, unspecified pathological fracture p Physician Interpretation EXAM TITLE: BONE MINERAL DENSITOMETRY COMPARISON:None CLINICAL INDICATION/HISTORY: Postmenopausal TECHNIQUE: DXA [facility] v.13.4 examination was performed on the lumbar spine and hip. FINDINGS: 1. L1-L4 BMD is 0.84 g/cm2 which is 71% of peak bone mass compared to young normals which is -2.8 standard deviations relative to the mean of young normals (T-score). According to the World Health Organization criteria, this would be classified as osteoporosis. 2. Left hip BMD is 0.78 g/cm2 which is 77% of peak bone mass compared to young normals which is -1.8 standard deviations relative to the mean of young normals (T-score). According to the World Health Organization criteria, this would be classified as osteopenia. 3. Left femoral neck BMD is 0.77 g/cm2 which is 74% of peak bone mass compared to young normals which is -2 standard deviations relative to the mean of young normals (T-score). According to the World Health Organization criteria, this would be classified as osteopenia. IMPRESSION: There is osteoporosis within the assessed regions. RELATIVE FRACTURE RISK TABLE NOTE: This table applies to post-menopausal females. T-score Fracture risk 0 average risk for normal 40 year old -1 2 times the normal -2 4 times the normal -3 8 times the normal etc. GENERAL RECOMMENDATIONS FOR PREVENTION OF BONE LOSS: 1. 1200 mg - 1500 mg calcium per day if no history of renal calculi for adults 50 years and over. 2. 800 - 1000 International Units of vitamin D3 per day if no history of renal calculi for adults 50 years and over. 3. Weight bearing exercise 4. Discontinue smoking 5. Avoid excessive use of caffeine, soft drinks, and alcoholic beverages. The National Osteoporosis Foundation recommends that treatment be considered for patients with T-scores of -2 or lower (-1 or lower if patient at high risk for accelerated bone loss). Bike Mechanic: SABINO Transcribe Date/Time: May 11 2020 1:27P Dictated by : AMENA LESTER MD This examination was interpreted and the report reviewed and electronically signed by: AMENA LESTER MD on May 11 2020 1:28PM EST Normal [facility] ANES Margaret 10-02-2019 ANES POST HNO ID: [id number] Author: Nilam Lu Service: Anesthesiology Author Type: Anesthesiologist Type: Anesthesia PostOp Filed: 10/02/2019 4:56 PM Note Text: POST ANESTHESIA EVALUATION NOTE SERVICE DATE: 10/02/2019 SERVICE TIME: 4:55 PM : 1960 Vitals: 10/02/19 1252 10/02/19 1515 Temp: 36.1 ?C (97 ?F) 36.5 ?C (97.7 ?F) 10/02/19 1252 10/02/19 1515 10/02/19 1530 BP: 186/97 155/74 147/77 10/02/19 1252 10/02/19 1515 10/02/19 1530 10/02/19 1545 Pulse: 77 85 83 82 10/02/19 1252 10/02/19 1515 10/02/19 1530 10/02/19 1545 Resp: 16 16 16 16 10/02/19 1252 10/02/19 1515 10/02/19 1530 10/02/19 1545 SpO2: 94% 94% 95% 95% Validated Vital Signs: Yes POST ANES STATUS: No apparent anesthetic complications. The patient is appropriately hydrated with stable respiratory and cardiovascular status. Patient has safe and adequate airway control. The patient has appropriate pain relief and no significant post operative nausea or vomiting. The patient has achieved baseline mental status. Intra-Operative Events: No Significant Anesthesia Events Further assessment by Anesthesia Service: None Other Remarks: SIGNATURE: Nilam Lu MD PATIENT NAME: Marimar Wang DATE: October 02, 2019 TIME: 4:55 PM [phone] PREOP HNO ID: [id number] Author: Nilam Lu Service: Anesthesiology Author Type: Anesthesiologist Type: Anesthesia PreOp Filed: 10/02/2019 1:02 PM Note Text: ANESTHESIOLOGY DAY OF SURGERY NOTE SERVICE DATE: 10/02/2019 SERVICE TIME: 1:00 PM : 1960 Procedure(s) (LRB): ARTHROSCOPY KNEE MENISCECTOMY MEDIAL OR LATERAL (Right) Surgeon(s): Michael Knott Estimated body mass index is 36.68 kg/m? as calculated from the following: Height as of this encounter: 160 cm (5' 2.99). Weight as of this encounter: 93.9 kg (207 lb). Most recent hematocrit and potassium results: Hematocrit 46.5 09/15/2019 Potassium 4.0 09/15/2019 ANES DOS/PREOP NOTE: Vitals: 10/02/19 1252 BP: 186/97 Pulse: 77 Resp: 16 Temp: 36.1 ?C (97 ?F) TempSrc: Temporal Artery SpO2: 94% Weight: 93.9 kg (207 lb) Height: 160 cm (5' 2.99) ACTIVE PROBLEM LIST Rheumatoid Arthritis Involving Multiple Sites ([facility]) Fibromyalgia Depression Asthma Hyperlipidemia With Target Ldl Less Than 130 Insomnia Hip Pain Thoracic Or Lumbosacral Neuritis Or Radiculitis, Unspecified Piriformis Syndrome Intermittent Palpitations Pvc's (Premature Ventricular Contractions) Anemia Iron Deficiency Anemia Due to Chronic Blood Loss Iron Malabsorption Rpe Mottling of [place] Dry Eyes Dermatochalasis of Both Upper Eyelids Rheumatoid Arthritis Involving Multiple Sites With Positive Rheumatoid Factor ([facility]) Vitreous Floaters of Both Eyes Vitamin D Deficiency Combined Form of Age-Related Cataract, Both Eyes Osteoporosis Ty (Dyspnea On Exertion) Essential Hypertension Dry Eye Syndrome Primary Osteoarthritis of Both Hands Gerd Without Esophagitis Generalized Osteoarthrosis Hyperopia, Bilateral Regular Astigmatism, Bilateral Presbyopia Class 1 Obesity With Body Mass Index (Bmi) of 34.0 to 34.9 in Adult Carotid Artery Stenosis Chronic Diastolic Chf (Congestive Heart Failure) ([facility]) Copd (Chronic Obstructive Pulmonary Disease) ([facility]) Tear of Medial Meniscus of Right Knee PAST MEDICAL HISTORY Diagnosis Date - Asthma - Homer lesion, acute 01/30/2019 - Carotid artery disease (HCC) - COPD (chronic obstructive pulmonary disease) ([facility]) - Depression - Diverticulosis - Fibromyalgia - Fibromyalgia - GERD (gastroesophageal reflux disease) - GI bleed 02/2019 - Hiatal hernia - Hyperlipidemia - Hypertension - Insomnia - Iron deficiency anemia - Osteoarthritis - Osteoporosis - Piriformis syndrome - PVC's (premature ventricular contractions) - Rheumatoid arthritis (HCC) - Sjogren's disease (HCC) - Vitamin D deficiency PAST SURGICAL HISTORY Procedure Laterality Date - COLONOSCOP W/ OR W/O [facility] SPEC 04/11/2015 Colonoscopy - COLONOSCOP W/ OR W/O [facility] SPEC 09/23/2017 Colonoscopy repeat 10 years - EGD 01/30/2019 Homer's erosions; Dr. Rudolph - EGD W/O OR W/BRUSH/WASH 05/07/2016 EGD - EGD W/O OR W/BRUSH/WASH 09/23/2017 EGD - LAPS RPR PARAESPHGL HRNA INCL FUNDPLSTY W/MESH 05/07/2019 Dr. Pat - MRI BRAIN W/O CONTRAST 07/20/11 - PAST SURGICAL HISTORY OF 1983, 1986 2 C Sections - PAST SURGICAL HISTORY OF 1982 Left shoulder, has screw in shoulder - TOTAL KNEE REPLACEMENT 2009 Total left knee surgery FAMILY HISTORY Problem Relation Age of Onset - Hypertension Mother - Stroke Mother - Cataract Mother - Asthma Mother - other (ESRD) Mother - Heart Father - Glaucoma Father - Ischemic Heart Disease Father age 42 from [place] - Hypertension Sister - other (Other) Brother 18 MVA - Depression Daughter - other (PTSD) Daughter - other (Anxiety) Daughter - Diabetes Daughter Social History: Social History Tobacco Use - Smoking status: Former Smoker Packs/day: 1.00 Years: 31.00 Pack years: 31.00 Types: Cigarettes Last attempt to quit: 01/01/2015 Years since quittin.7 - Smokeless tobacco: Never Used - Tobacco comment: ETS: Father in childhood home. Active smoker in current home. Substance Use Topics - Alcohol use: No Frequency: Never Drinks per session: Patient refused Binge frequency: Never - Drug use: No No current facility-administered medications on file prior to encounter. Current Outpatient Medications on File Prior to Encounter Medication Sig - albuterol (PROVENTIL) 2.5 mg /3 mL (0.083 %) nebulizer solution Use 3 mL via nebulizer every 6 hours as needed for Wheezing/Shortness of Breath. - leflunomide (ARAVA) 20 mg tablet Take 1 tablet by mouth once daily. - FLUoxetine (PROZAC) 20 mg capsule Take 3 capsules by mouth once daily. - ondansetron orally disintegrating (ZOFRAN ODT) 4 mg disintegrating tablet Take 1 tablet by mouth every 6 hours as needed for Nausea/Vomiting. - buPROPion XL (WELLBUTRIN XL) 150 mg 24 hr tablet Take 1 tablet by mouth once daily. - gabapentin (NEURONTIN) 600 mg tablet Take 1 tablet by mouth three times daily for 90 days. - cyclobenzaprine (FLEXERIL) 10 mg tablet Take 1 tablet by mouth daily at bedtime. - simvastatin (ZOCOR) 40 mg tablet Take 1 tablet by mouth daily at bedtime. - coenzyme Q10 (CO Q-10) 100 mg cap capsule Take 1 capsule by mouth twice daily. - albuterol HFA (VENTOLIN HFA) 90 mcg/actuation inhaler Inhale 2 Puffs as instructed every 4 hours as needed for Wheezing/Shortness of Breath. - furosemide (LASIX) 40 mg tablet Take 1 tablet by mouth once daily. - mometasone (NASONEX) 50 mcg/actuation nasal spray Use 2 Sprays in the nose once daily. Rinse mouth after use. - cholecalciferol, Vitamin D3, (VITAMIN D3) 50,000 unit cap capsule Take 1 capsule by mouth one time a week. (ONE CAPSULE) FOR VITAMIN D DEFICIENCY - >Nebulizer For Home Nebulizer for home use. Diagnosis: Moderate persistent asthma with acute exacerbation and pneumonia Current Facility-Administered Medications Medication Dose Route Frequency Provider Last Rate Last Dose - lidocaine 10 mg/mL (1 %) 1-2 mg injection (XYLOCAINE) 0.1-0.2 mL INTRADERMAL PRN Ana (Pa) Kenyon - lactated ringers infusion 5-30 mL/hr INTRAVENOUS CONTINUOUS Ana (Pa) Kenyon - ceFAZolin iv piggyback 2 g in D5W (iso-osmotic) 100 mL (ANCEF) 2 g INTRAVENOUS Pre-Op Once Ana (Pa) Kenyon Allergies: ALLERGIES Allergen Reactions - Cymbalta [Duloxetin* Intolerance Headaches - Dilaudid [Hydromorp* Vomiting - Horse Serum [Other] - Morphine Vomiting - Nsaids (Non-Steroid* Anaphylaxis Had anaphylactic reaction to Aleve - Vibramycin [Doxycyc* - Vicodin [Hydrocodon* Vomiting Can take if given antiemetic at same time DOS EXAM: Adequate NPO Status: Yes Anesthetic Risks, Benefits, Alternatives, Personnel and Consent Discussed: Yes Patient agrees to proceed: Yes Previous Anesthesia: No history of adverse event Airway Assessment: MP 3; Neck ROM: Limited Flexion and Extension; Airway Evaluation: Short Neck Symptoms of Sleep Apnea: Hypertension, BMI > 35 and Age over 50 (59 year old) Dentition: Edentulous Additional Physical Exam: Lungs: Patient health status unchanged since recent history and physical. See history and physical for exam findings. Cardiac: Patient health status unchanged since recent history and physical. See history and physical for exam findings. Additional Pertinent Findings: N/A Blood Products: Not anticipated for this procedure Anesthetic Plan: General Anesthetic Monitoring: Standard ASA Monitors Pain Management Plan: Parenteral or Oral ASA Class: 3 Other Medical Problems: None Chronic Beta Soledad medication administered within 24 hours: N/A I have interviewed and examined the patient. I have reviewed the medical record and/or the pre-anesthesia evaluation, pertinent labs, and test results. Significant changes in the patient's condition since the History and Physical, not otherwise documented in primary service progress notes: No This contains updated information obtained within 48 hours of Surgery/Procedure. SIGNATURE: Nilam Lu MD PATIENT NAME: Marimar Wang DATE: October 02, 2019 TIME: 1:00 PM CSN: [id number] [facility] BRIEF OP NOTon 10-02-2019 BRIEF OP NOT HNO ID: [id number] Author: Michael Knott Service: Orthopaedic Surgery Author Type: Physician Type: Brief Op Note Filed: 10/02/2019 3:05 PM Note Text: OPERATIVE/PROCEDURE REPORT LOG ID: [id number] SURGERY/PROCEDURE DATE: 10/02/2019 INCISION/PROCEDURE START TIME: 2:39 PM INCISION CLOSE/PROCEDURE END TIME: 3:00 PM SURGEON(S)/PROCEDURALIST (S) AND SANITARY [place] MACHINE TENDER(S): Surgeon(s) and Role: * Michael Knott - Primary Physician Collar Stay Fuser Tender: Ana Prescott (Pa) Registered Nurse Event Av Operator: Mishel (López) LÓPEZ Sow SURGERY/PROCEDURE(S): Right DAK PMM ANESTHESIA: General SURGERY/PROCEDURE DETAILS: above PRE-OP/PRE-PROCEDURE DIAGNOSIS: MMT right knee POST-OP/POST-PROCEDURE DIAGNOSIS: Same as Preop ESTIMATED BLOOD LOSS: 0 ml SPECIMENS: None IMPLANTABLE DEVICES: None DRAINS: None COMPLICATIONS: None PARTICIPATION IN SURGERY/PROCEDURE: I/primary surgeon/proceduralist performed the procedure with assistance. No qualified resident/fellow was available. SIGNATURE: Michael Knott MD FACS PATIENT NAME: Marimar Keita Kathleen DATE: October 02, 2019 TIME: 3:03 PM PAGER/CONTACT #: [facility] OPERATIVE NOon 10-02-2019 OPERATIVE NO HNO ID: [id number] Author: Michael Knott Service: Orthopaedic Surgery Author Type: Physician Type: Operative Report Filed: 10/05/2019 7:34 AM Note Text: [facility] - Operative Report MARIMAR WANG : 1960 AGE: 59. SEX: F PATIENT TYPE: A HOSP SVC: [facility] LOCATION: [facility] ATTENDING PHYSICIAN: Michael Knott M.D. CSN NUMBER: [id number] DATE OF SURGERY/PROCEDURE: 10/02/2019 INCISION/PROCEDURE START TIME: 1439. INCISION CLOSE/PROCEDURE END TIME: 1505. PREOPERATIVE DIAGNOSIS: 1. Medial meniscal tear of the right knee. 2. Grade 3 localized changes inferior pole patella, medial femoral condyle. POSTOPERATIVE DIAGNOSIS: Medial meniscal tear [facility] yasmin SURGEON: Michael Knott M.D. SANITARY [place] MACHINE TENDER: Ana Prescott PA-C. SURGERY/PROCEDURE: Arthroscopic partial medial meniscectomy of the right knee. ANESTHESIA: General. INDICATION: Patient is seen with complaints of knee pain attributable to the meniscal tear, elected to undergo surgical procedure. ESTIMATED BLOOD LOSS: Zero. SPECIMENS SENT: None. DESCRIPTION OF PROCEDURE: Patient was brought to operating room and laid supine on the operating table. General anesthesia was administered by Anesthesia without complication. The right leg was then prepped and draped in the usual sterile fashion. The right leg was then elevated and exsanguinated using Esmarch bandage with tourniquet elevated to 250 mmHg. Anteromedial, anterolateral, superomedial egress portals were made using a #11 blade scalpel. Examination began with patellofemoral articulation. Normal trochlea was seen with normal tracking. Inferior half of the patella demonstrated stellate fissuring, grade 2, grade 3 nature. Medial and lateral gutters did not reveal any loose bodies. The intercondylar notch demonstrated intact anterior posterior cruciate ligament. Lateral compartment showed intact cartilage surfaces and intact lateral meniscus. Medial compartment showed a localized area of approximately 1.5 cm in the medial half of the medial femoral condyle on the weightbearing region that showed grade 2 to grade 3 changes. Loose flaps were debrided. There was also seen to be a horizontal cleavage tear from the posterior horn to the body junction, which were resected back to a stable border. Portals were closed using absorbable subcutaneous suture. Bulky sterile compressive dressing was applied. The patient was taken from the operating room to recovery room in awake and stable condition with no complications. The primary surgeon performed the entire procedure with 1st human resources benefits assistant helping with wound closure, dressing application, protecting neurovascular structures. Michael Knott M.D. [id number] /[id number] Normal [facility] PLAN OF CAREon 10-02-2019 PLAN OF CARE HNO ID: [id number] Author: Celia Baldwin (Belly Dump Driver) Service: Pharmacy Author Type: ? 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 Patient to use [facility] Bedside Delivery - YES Insurance Information as follows: 2. Insurance card on file - YES 3. Credit card for payment - YES PHARMACY BEDSIDE DELIVERY SERVICE Patient Name: Marimar Wang The marked outpatient medications were Filled at: [facility] and delivered to the patient's bedside to pharm p/u Medication List START taking these medications oxyCODONE-acetaminophen 5-325 mg tablet Commonly known as: PERCOCET Take 1 tablet by mouth every 6 hours as needed for up to 5 days. X CONTINUE taking these medications * albuterol HFA 90 mcg/actuation inhaler Commonly known as: VENTOLIN HFA Inhale 2 Puffs as instructed every 4 hours as needed for Wheezing/Shortness of Breath. * albuterol 2.5 mg /3 mL (0.083 %) nebulizer solution Commonly known as: PROVENTIL Use 3 mL via nebulizer every 6 hours as needed for Wheezing/Shortness of Breath. buPROPion XL 150 mg 24 hr tablet Commonly known as: WELLBUTRIN XL Take 1 tablet by mouth once daily. cholecalciferol (Vitamin D3) 1,250 mcg (50,000 unit) Cap capsule Commonly known as: VITAMIN D3 Take 1 capsule by mouth one time a week. (ONE CAPSULE) FOR VITAMIN D DEFICIENCY coenzyme Q10 100 mg Cap capsule Commonly known as: CO Q-10 Take 1 capsule by mouth twice daily. COMPOUNDED PRESCRIPTION Nebulizer for home use. Diagnosis: Moderate persistent asthma with acute exacerbation and pneumonia cyclobenzaprine 10 mg tablet Commonly known as: FLEXERIL Take 1 tablet by mouth daily at bedtime. FLUoxetine 20 mg capsule Commonly known as: PROzac Take 3 capsules by mouth once daily. furosemide 40 mg tablet Commonly known as: LASIX Take 1 tablet by mouth once daily. gabapentin 600 mg tablet Commonly known as: NEURONTIN Take 1 tablet by mouth three times daily for 90 days. leflunomide 20 mg tablet Commonly known as: ARAVA Take 1 tablet by mouth once daily. mometasone 50 mcg/actuation nasal spray Commonly known as: NASONEX Use 2 Sprays in the nose once daily. Rinse mouth after use. ondansetron orally disintegrating 4 mg disintegrating tablet Commonly known as: ZOFRAN ODT Take 1 tablet by mouth every 6 hours as needed for Nausea/Vomiting. promethazine 25 mg tablet Commonly known as: PHENERGAN Take 1 tablet by mouth every 6 hours as needed for Nausea/Vomiting. simvastatin 40 mg tablet Commonly known as: ZOCOR Take 1 tablet by mouth daily at bedtime. * This list has 2 medication(s) that are the same as other medications prescribed for you. Read the directions carefully, and ask your doctor or other care provider to review them with you. You might also be taking other medications not listed above. If you have questions about any of your other medications, talk to the person who prescribed them or your Primary Care Provider. Celia Baldwin (Belly Dump Driver) PAGER: [phone] October 02, 2019 4:10 PM [facility] PT EDon 10-02-2019 PT ED HNO ID: [id number] Author: Elisabeth WattsRn) LÓPEZ Alexis Service: Nursing Author Type: Registered Nurse Type: Patient Education Filed: 10/02/2019 4:39 PM Note Text: POST OP LEARNING RESPONSE INSTRUCTION PROVIDED TO: Patient and family member METHOD OF INSTRUCTION: Individual instruction PATIENT / FAMILY RESPONSE: Verbalizes understanding of: POST-OPERATIVE INSTRUCTIONS-Correct actions to take to reduce postoperative complications POST OPERATIVE INSTRUCTIONS RELATED TO: ROUTINE MONITORING AND PROCEDURES: N/A, CARE TO PREVENT COMPLICATIONS: N/A, PAIN CONTROL: N/A, USE OF KNEE IMMOBILIZER: N/A, HOW TO GAIN MOTION BACK: N/A, PRE DISCHARGE: N/A, ADVERSE CONDITIONS TO INFORM YOUR DOCTOR: Signs AND symptoms of Infection FOLLOW-UP PLAN: Patient instructed to call with any further issues SUPPLEMENTAL MATERIAL: None REFERRAL (RECOMMENDATION): None Electronically Signed By: Elisabeth Alexis RN In Department: [facility] SURGERY [facility] PT ED HNO ID: [id number] Author: Krystal Hammond) LÓPEZ Vivar Service: ? Author Type: Registered Nurse Type: Patient Education Filed: 10/02/2019 12:40 PM Note Text: PRE OP LEARNING ASSESSMENT PROCEDURE/SURGERY: SURGERY: right knee scope READINESS TO LEARN COGNITIVE ABILITY: Alert and oriented MOTIVATION TO LEARN: Interested FAMILY SUPPORT: High - Very involved in pt care PATIENT LEARNS BEST BY: Written Instruction - Hand-outs Verbal Instruction FACTORS AFFECTING LEARNING: None PHYSICAL LIMITATIONS AFFECTING LEARNING: None Electronically Signed By: Krystal Vivar RN In Department: [facility] SURGERY [facility] NURSING PROGon 09-21-2019 NURSING PROG HNO ID: [id number] Author: Jaiden WattsRn) LÓPEZ Meeks Service: ? Author Type: Registered Nurse Type: Nursing Progress Note Filed: 09/25/2019 7:28 AM Note Text: PACC Nurse Progress Note History AND Physical: PACC Visit Date: 09/18/2019 Original HANDP Date: 09/18/2019 ED visit Date: N/A Outside HANDP Scanned Date: N/A Labs Within Last 6 Months: CBC: Date 09/15/2019 HCT 46.5 BMP/CMP: Date 09/15/2019 Glucose 106 UA: Date 05/05/19 WNL Urine C+S: Date 05/05/19 No growth Iron+TIBC 08/12/2019 WNL Ferritin 08/12/2019=319 B12 08/12/2019 WNL Sed rate 09/15/2019 WNL CRP 09/15/2019= 0.53 NT Pro BNP 08/12/2019=482 Imaging Within Last 12 Months: MRI Knee right 01/22/19 see [facility] Chest X-ray 05/05/19 see [facility] No acute radiographic abnormality. Stable cardiac enlargement X-ray Knee Right 12/02/18 see [facility] Cardiac Testing: EKG in last 12 Months: Yes: Date: 02/20/19, Comment: See [facility] NORMAL SINUS RHYTHM POSSIBLE LEFT ATRIAL ENLARGEMENT LEFT VENTRICULAR HYPERTROPHY ECHO Date: 02/13/19, Comment: EF 58% +or-5%-see [facility] Regadenoson NuclearStress Test Date: 03/02/19 , Comment: No ischemia or scar-see [facility] Last Menstrual Period: LMP Date: None recorded Postmenopausal >1yr: Yes, S/P Hysterectomy: No BMI Percentile (PEDS): N/A Risk Assessment: Cardiac Date: 02/20/19 Dr Ronit Rahman, scanned in [facility] 03/19/19(Scanned documents) Anesthesia Review: N/A Narrative: Per Sarah BENOIT, rheumatology 09/02/2019: Arava can continued throughout surgery unless she has complications like infection. Orencia infusion can be held one time close to surgery. No need for stress dose steroids. Pre-op Considerations: Iron deficiency anemia: resolved after receiving Venofer infusions Fibromyalgia Carotid artery stenosis: under surveillance-stable COPD/asthma PVCs: asymptomatic Chronic diastolic heart failure with intermittent dyspnea exertion Chart Check: COMPLETE Jaiden Meeks RN September 25, 2019 7:26 AM [facility] HOSPon 09-01-2019 HOSP Patient:Isabell Wang MRN: Height:5' 3(1.6 m) Weight:207 lb (93.895 kg) Outpatient Medications as of 10/02/19: promethazine (PHENERGAN) 25 mg tablet albuterol (PROVENTIL) 2.5 mg /3 mL (0.083 %) nebulizer solution leflunomide (ARAVA) 20 mg tablet FLUoxetine (PROZAC) 20 mg capsule ondansetron orally disintegrating (ZOFRAN ODT) 4 mg disintegrating tablet albuterol HFA (VENTOLIN HFA) 90 mcg/actuation inhaler furosemide (LASIX) 40 mg tablet buPROPion XL (WELLBUTRIN XL) 150 mg 24 hr tablet mometasone (NASONEX) 50 mcg/actuation nasal spray cholecalciferol, Vitamin D3, (VITAMIN D3) 50,000 unit cap capsule gabapentin (NEURONTIN) 600 mg tablet cyclobenzaprine (FLEXERIL) 10 mg tablet >Nebulizer For Home simvastatin (ZOCOR) 40 mg tablet coenzyme Q10 (CO Q-10) 100 mg cap capsule Admission/Clinic Administered Medications as of 10/02/19: lidocaine 10 mg/mL (1 %) 1-2 mg injection (XYLOCAINE) lactated ringers infusion ceFAZolin iv piggyback 2 g in D5W (iso-osmotic) 100 mL (ANCEF) Problem List: Rheumatoid arthritis involving multiple sites (HCC) [M06.9] Fibromyalgia [M79.7] Depression [F32.9] Asthma [J45.909] Hyperlipidemia with target LDL less than 130 [E78.5] Insomnia [G47.00] Hip pain [M25.559] Thoracic or lumbosacral neuritis or radiculitis, unspecified [DGV8823] Piriformis syndrome [G57.00] Intermittent palpitations [R00.2] PVC's (premature ventricular contractions) [I49.3] Anemia [D64.9] Iron 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 blood loss [D50.0] Iron malabsorption [K90.9] RPE mottling of macula [H35.89] Dry eyes [H04.123] Dermatochalasis of both upper eyelids [H02.831, H02.834] Rheumatoid arthritis involving multiple sites with positive rheumatoid factor (HCC) [M05.79] Vitreous floaters of both eyes [H43.393] Vitamin D deficiency [E55.9] Combined form of age-related cataract, both eyes [H25.813] Osteoporosis [M81.0] TY (dyspnea on exertion) [R06.09] Essential hypertension [I10] Dry eye syndrome [H04.129] Primary osteoarthritis of both hands [M19.041, M19.042] GERD without esophagitis [K21.9] Generalized osteoarthrosis [M15.9] Hyperopia, bilateral [H52.03] Regular astigmatism, bilateral [H52.223] Presbyopia [H52.4] Class 1 obesity with body mass index (BMI) of 34.0 to 34.9 in adult [E66.9, Z68.34] Carotid artery stenosis [I65.29] Chronic diastolic CHF (congestive heart failure) ([facility]) [I50.32] COPD (chronic obstructive pulmonary disease) ([facility]) [J44.9] Tear of medial meniscus of right knee [S83.241A] Allergies: Cymbalta [Duloxetine] Dilaudid [Hydromorphone (Bulk)] horse serum [Other] Morphine Nsaids (Non-Steroidal Anti-Inflammatory Drug) Vibramycin [Doxycycline Calcium] Vicodin [Hydrocodone-Acetaminoph en] Date Verified: 10/02/19 Lab Values Lab Value Units Date High Low POTA* 4.0 mEq/L 09/15/2019 5.1 3.5 ANDREW* 46.5 % 09/15/2019 44.9 34.1 Progress Notes ([facility] Priscila Carrillo CMA 09/18/2019 10:10 AM Signed ----- Message from Sarah Pearson (Pa) sent at 09/15/2019 4:28 PM EST ----- Labs are still showing inflammation but improving since being on Orencia infusions. LIZZIE Cruz CMA 09/18/2019 10:11 AM Signed Patient was called and informed. Priscila Carrillo CMA Progress Notes [facility] Sarah Pearson PA-C 09/02/2019 12:33 PM Signed RHEUMATOLOGY PROGRESS NOTE Patient is here for a follow up visit for Patient presents with: Arthritis HPI: Marimar Wang is a 59 year old female who presents RA. Patient has finished her loading doses of Orencia infusions, maintenance doses start next week. Continues to be on a renal 20 mg daily. She complains of some right second and third PIP pain and swelling. States that the swelling is always there. Morning stiffness lasts about 3 hours. She also complains of some left hip pain that is present as the day goes on. She also complains of severe nausea and vomiting several days after her Orencia infusion as well as headaches. Has been using Zofran without relief. Patient had hiatal hernia repair April 2019 and reports feeling better. Has surgery planned for September 2023 tear right medial meniscus arthroscopic surgery. Recently saw cardiology and was diagnosed with mild congestive heart failure, now takes Lasix 40 mg daily. Patient had Reclast infusion 05/2019 Saw Pulmonology, no signs of ILD Brief Rheumatological history - Patient was seeing a middle school librarian in [facility]. She was prescribed Xeljanz (she took it for 2 years) and was denied. She tried Humira, Enbrel, Remicaid, MTX, Plaquenil (vision problems, CLAUDIA, cataracts, dry eyes). She was diagnosed with RA, SS since 8 years ago. She has been on prednisone 5 mg. Patient thinks she was better with Humira. Initially several years ago she was responding to meds for RA. Prozac dose was increased recently. Cymbalta (headaches). No h/o PT/water therapy. Lyrica 100 mg bid (did not help) Poor sleep. Tramadol quit working. Not been on Flexeril for a long time. On neurontin 600 mg tid. ?Not been on Savella, Elavil or Effexor. She has h/o iron deficiency amenia - normal GI eval. ?s/p left TKR. She had no improvement with right knee injections before. She was also diagnosed with OA, OP, FMS. Fosamax ws started but could not take it de to GERD. There was a discussion about Reclast. BOZENA - GI bleed. On Iron infusions. C scope was normal 03/15 - off prednisone, received Reclast Interval Review of Systems CONSTITUTIONAL: Recent Weight change: No Fever: No EYES: Dryness in nose: No Dryness of mouth: No Oral ulcers: No CARDIOVASCULAR: Pain in chest: No RESPIRATORY: Shortness of breath: No Cough: No GASTROINTESTINAL: Nausea: YES Vomiting: YES Changes in bowel movements: No Jaundice: No Heartburn: No MUSCULOSKELETAL: Per HPI INTEGUMENTARY: Rash: No HEMATOLOGIC/LYMPHATIC: Anemia: No NEUROLOGICAL SYSTEM: Headaches: No Sensitivity or pain of hands and/or feet: No PSYCHIATRIC: Anxiety: No Poor sleep: No PAST MEDICAL HISTORY Diagnosis Date - Asthma - Homer lesion, acute 01/30/2019 - Carotid artery disease (HCC) - COPD (chronic obstructive pulmonary disease) (HCC) - Depression - Diverticulosis - Fibromyalgia - Fibromyalgia - GERD (gastroesophageal reflux disease) - GI bleed 02/2019 - Hiatal hernia - Hyperlipidemia - Hypertension - Insomnia - Iron deficiency anemia - Osteoarthritis - Osteoporosis - Piriformis syndrome - PVC's (premature ventricular contractions) - Rheumatoid arthritis (HCC) - Sjogren's disease (HCC) - Vitamin D deficiency PAST SURGICAL HISTORY Procedure Laterality Date - COLONOSCOP W/ OR W/O BRS SPEC 04/11/2015 Colonoscopy - COLONOSCOP W/ OR W/O BRSH SPEC 09/23/2017 Colonoscopy repeat 10 years - EGD 01/30/2019 Homer's erosions; Dr. Rudolph - EGD W/O OR W/BRUSH/WASH 05/07/2016 EGD - EGD W/O OR W/BRUSH/WASH 09/23/2017 EGD - LAPS RPR PARAESPHGL HRNA INCL FUNDPLSTY W/MESH 05/07/2019 Dr. Pat - MRI BRAIN W/O CONTRAST 07/20/11 - PAST SURGICAL HISTORY OF 1983, 1986 2 C Sections - PAST SURGICAL HISTORY OF 1982 Left shoulder, has screw in shoulder - TOTAL KNEE REPLACEMENT 2009 Total left knee surgery History Review: I have reviewed and modified as needed, the following during this visit: Allergies, Past Medical History, Past Surgical History, Past Family History, Past Social History. BP 136/80 Pulse 89 Wt 90.7 kg (200 lb) SpO2 97% BMI 35.43 kg/m? Physical Exam GENERAL: Well appearing, alert, comfortable, in no acute distress, well-hydrated, well nourished. HEENT: Negative for external ears normal. Canals are clear. Both TMs visualized and are normal. Eye Exam normal. External nose normal, no nasal ulcer or throat ulcer. NECK: NECK Supple, no adenopathy; thyroid symmetric, normal size, no bruits CARDIAC: regular rate and rhythm, No murmur asculated. and Equal peripheral pulses RESPIRATORY: Lungs clear to auscultation. No wheezing, rhonchi, rales VASCULAR: RRR without murmur, gallop, or rubs. No ectopy. NEURO: Motor and sensory exam normal MOTOR: Normal; including tone, gait, stressed gait, power and coordination. SKIN: Negative for alopecia, skin rash, malar rash, skin lesion, skin ulcer, pits, thickening, color changes, telangiectasias, nail changes, nail ridging, nail pitting, onycholysis MUSCULOSKELETAL: DIPS: Abnormal, Heberden's nodes PIPS: Abnormal, Elena's nodes, pain over right PIP 2 MCPs: Normal Wrists: Normal Elbows: Normal Shoulders: Normal C-Spine: Normal Hips: Normal Knees: Normal Ankles: Normal MTPs / Toes: Normal Arches: Normal Lab Results: Glucose 89 08/12/2019 ALT 17 08/12/2019 WBC 9.63 05/08/2019 Hemoglobin 13.0 05/08/2019 Platelet Count 241 05/08/2019 WSR 35 04/16/2019 CRP 0.85 04/16/2019 Serology: RF positive, CCP positive Radiology: IMPRESSION: Large hiatal hernia. ?Again seen is mild, diffuse bronchial wall thickening. ?Interval development of multifocal bilateral groundglass attenuation airspace opacities within both lungs, concerning for multifocal pneumonia. ?Interval follow-up examination after treatment is recommended in order to ensure resolution. Sequela of remote granulomatous disease. ?Interval development of tiny pulmonary nodules, measuring up to 2 mm in size. Incidental Finding: ?No follow-up imaging for this/these incidentally detected lung nodule(s) is recommended. If there are risk factors for lung malignancy, a follow-up chest CT exam could be obtained in 12 months. Interval development of anterior mediastinal lymphadenopathy. ? ? IMPRESSION: MODERATE TO MARKED OSTEOARTHRITIS OF THE PATELLOFEMORAL AND MEDIAL COMPARTMENT. NONDISPLACED MEDIAL MENISCUS TEAR. PARTIALLY RUPTURED MATTHEW'S CYST. Assessment and Plan (M05.79) Rheumatoid arthritis involving multiple sites with positive rheumatoid factor (HCC) (primary encounter diagnosis) (M15.9) Generalized osteoarthrosis (R11.0) Nausea (M70.62) Trochanteric bursitis of left hip 59-year-old woman is here for follow-up. Patient has seropositive rheumatoid arthritis, erosive osteoarthritis and osteoporosis. She was on Humira and Arava however discontinued due to being sick. Patient was switched to Orencia infusions. She has noticed increased nausea, vomiting, headaches after infusions. She has tried Zofran without relief. Not a good candidate for Reglan given use of Wellbutrin and Prozac. Can try Phenergan 25 mg as needed. ? S/p Reclast 03/15, 06/16 for osteoporosis, off prednisone. Continue vitamin D 50,000 units weekly. Next bone density due November 2019. Patient said she saw pulmonology, was told she did not have RA-ILD. Following with cardiology for chronic diastolic heart failure, current therapy includes Lasix 40 mg daily. ? We discussed about high alkaline phosphatase which is coming from both liver and bone. Discussed about the importance of keeping her cholesterol levels normal. Low vitamin D and osteoporosis are other causes for high alkaline phosphatase. ? Vanessa fundoplication completed, doing better. Patient is now scheduled for right knee medial meniscus arthroscopic surgery 09/2019. Arava can continued throughout surgery unless she has complications like infection. Orencia infusion can be held one time close to surgery. No need for stress dose steroids. Patient likely has left-sided trochanteric bursitis, education provided, exercise handout given during clinic. Stressed the importance of good stretching and exercises. Injections can be considered in the future, patient elected to hold off at this time. No orders found for this visit on 09/02/19. Medication orders placed this encounter promethazine (PHENERGAN) 25 mg tablet Sig: Take 1 tablet by mouth every 6 hours as needed for Nausea/Vomiting. Dispense: 90 tablet Refill: 1 Return in about 3 months (around 12/01/2019) for RA, Dr. Arias. Sarah Pearson PA-C [facility] CNOVon 08-26-2019 CNOV Office Visit ([facility] ) -------- MARIMAR WANG ([id number]) 1960 F Date Time Provider Department 08/26/19 2:00 PM BRIAN RADER ([facility]) [facility] During your visit today, we recorded the following information about you: Pulse Blood pressure Weight 76/minute 143/82 90.7 kg Brian Rader APRN.CNP 08/26/2019 3:18 PM Signed [facility] OUTPATIENT VISIT DATE August 26, 2019 OUTPATIENT VISIT TYPE NEW PRIMARY CARE PHYSICIAN: SELENE PIERRE MD REFERRING PHYSICIAN: No referring provider defined for this encounter. CHIEF COMPLAINT: No chief complaint on file. HISTORY OF PRESENT ILLNESS: Marimar Wang is a 59 year old female who presents today for an initial visit to the Heart Failure Clinic. Pt with PMH significant for Sjogren's disease, RA, osteoporosis, HTN, hyperlipidemia, GERD-s/p Vanessa fundoplication- April 2019, fibromyalgia, depression, COPD, asthma, asymptomatic PVCs, and chronic diastolic heart failure. Pt has had no recent hospitalization for HF. Pt was seen in Dr. Rahman' office on 08/24/2019. Pt appeared to be stable with no symptoms of decompensation. She was referred to the HF Clinic for continued evaluation and education. Today, patient states that she is continuing to feel well. Reports that her weight has been stable without any sharp increases in weight. Office weight is also stable. She reports that she has intermittent TY that she has had for months now. She reports that going back on Lasix has helped this to improve. She reports that she notes increased TY when she is walking up hills or climbing stairs. When she is engaging in these activities, she requires a rest break in order to complete it. She denies CP, SOB at rest, PND, orthopnea, or the presence of edema. States that intermittently she will have ankle and dorsum of the foot edema but, it will resolve with elevation and use of Lasix. She reports that she is monitoring her sodium intake and is taking her medications as prescribed. SOB: Yes: with moderate exertion and stair climbing Fatigue: Yes: at baseline Orthopnea:No, sleeps with 2 pillows PND: No Edema:No Chest Pain:No (0/10) Palpitations:No Dizziness/Lightheadednes s:No Syncope:No Appetite: good Diet:low salt (2000 mg) Fluid Restriction: No Regular Exercise: No PAST CARDIAC HISTORY: Heart failure: diastolic Non-ischemic, subtype: Hypertensive. Her cardiac history is also significant for HTN, hyperlipidemia. Device: NA. ECHO: 02/14/2020: The left ventricle is normal in size. There is mild concentric left ventricular hypertrophy. Left ventricular systolic function is normal. EF = 58 ? 5% (2D biplane) Grade I left ventricular diastolic dysfunction. - The right ventricle is normal in size. Right ventricular systolic function is normal. ? -?There is mild mitral insufficiency present. - Exam was compared with the prior echocardiographic exam performed on 08/16/2017. The amount of mitral insufficiency has decreased. PAST MEDICAL HISTORY Diagnosis Date - Asthma - Homer lesion, acute 01/30/2019 - Carotid artery disease (HCC) - COPD (chronic obstructive pulmonary disease) (HCC) - Depression - Diverticulosis - Fibromyalgia - Fibromyalgia - GERD (gastroesophageal reflux disease) - GI bleed 02/2019 - Hiatal hernia - Hyperlipidemia - Hypertension - Insomnia - Iron deficiency anemia - Osteoarthritis - Osteoporosis - Piriformis syndrome - PVC's (premature ventricular contractions) - Rheumatoid arthritis (HCC) - Sjogren's disease (HCC) - Vitamin D deficiency PAST SURGICAL HISTORY Procedure Laterality Date - COLONOSCOP W/ OR W/O [facility] SPEC 04/11/2015 Colonoscopy - COLONOSCOP W/ OR W/O BRS SPEC 09/23/2017 Colonoscopy repeat 10 years - EGD 01/30/2019 Homer's erosions; Dr. Rudolph - EGD W/O OR W/BRUSH/WASH 05/07/2016 EGD - EGD W/O OR W/BRUSH/WASH 09/23/2017 EGD - LAPS RPR PARAESPHGL HRNA INCL FUNDPLSTY W/MESH 05/07/2019 Dr. Pat - MRI BRAIN W/O CONTRAST 07/20/11 - PAST SURGICAL HISTORY OF 1983, 1987 2 C Sections - PAST SURGICAL HISTORY OF 1982 Left shoulder, has screw in shoulder - TOTAL KNEE REPLACEMENT 2009 Total left knee surgery Social History Tobacco Use - Smoking status: Former Smoker Packs/day: 1.00 Years: 31.00 Pack years: 31.00 Types: Cigarettes Last attempt to quit: 01/01/2015 Years since quittin.6 - Smokeless tobacco: Never Used - Tobacco comment: ETS: Father in childhood home. Active smoker in current home. Substance Use Topics - Alcohol use: No Frequency: Never Drinks per session: Patient refused Binge frequency: Never - Drug use: No FAMILY HISTORY Problem Relation Age of Onset - Hypertension Mother - Stroke Mother - Cataract Mother - Asthma Mother - other (ESRD) Mother - Heart Father - Glaucoma Father - Ischemic Heart Disease Father age 42 from [place] - Hypertension Sister - other (Other) Brother 18 MVA - Depression Daughter - other (PTSD) Daughter - other (Anxiety) Daughter - Diabetes Daughter ALLERGIES Allergen Reactions - Cymbalta [Duloxetin* Intolerance Headaches - Dilaudid [Hydromorp* Vomiting - Horse Serum [Other] - Morphine Vomiting - Nsaids (Non-Steroid* Anaphylaxis Had anaphylactic reaction to Aleve - Vibramycin [Doxycyc* - Vicodin [Hydrocodon* Vomiting Can take if given antiemetic at same time CURRENT MEDICATIONS: Current Outpatient Medications Medication Sig Dispense Refill - leflunomide (ARAVA) 20 mg tablet Take 1 tablet by mouth once daily. 60 tablet 2 - FLUoxetine (PROZAC) 20 mg capsule Take 3 capsules by mouth once daily. 270 capsule 3 - ondansetron orally disintegrating (ZOFRAN ODT) 4 mg disintegrating tablet Take 1 tablet by mouth every 6 hours as needed for Nausea/Vomiting. 30 tablet 1 - albuterol HFA (VENTOLIN HFA) 90 mcg/actuation inhaler Inhale 2 Puffs as instructed every 4 hours as needed for Wheezing/Shortness of Breath. 1 Inhaler 0 - furosemide (LASIX) 40 mg tablet Take 1 tablet by mouth once daily. 30 tablet 5 - buPROPion XL (WELLBUTRIN XL) 150 mg 24 hr tablet Take 1 tablet by mouth once daily. 90 tablet 3 - mometasone (NASONEX) 50 mcg/actuation nasal spray Use 2 Sprays in the nose once daily. Rinse mouth after use. 1 Bottle 11 - cholecalciferol, Vitamin D3, (VITAMIN D3) 50,000 unit cap capsule Take 1 capsule by mouth one time a week. (ONE CAPSULE) FOR VITAMIN D DEFICIENCY 12 capsule 1 - gabapentin (NEURONTIN) 600 mg tablet Take 1 tablet by mouth three times daily for 90 days. 270 tablet 1 - cyclobenzaprine (FLEXERIL) 10 mg tablet Take 1 tablet by mouth daily at bedtime. 60 tablet 3 - fluticasone-vilanterol (BREO ELLIPTA) 200-25 mcg/dose inhaler Inhale 1 Inhalation as instructed once daily. - >Nebulizer For Home Nebulizer for home use. Diagnosis: Moderate persistent asthma with acute exacerbation and pneumonia 1 Each 0 - albuterol (PROVENTIL) 2.5 mg /3 mL (0.083 %) nebulizer solution Use 3 mL via nebulizer every 6 hours as needed for Wheezing/Shortness of Breath. 1 Package 0 - simvastatin (ZOCOR) 40 mg tablet Take 1 tablet by mouth daily at bedtime. 90 tablet 5 - coenzyme Q10 (CO Q-10) 100 mg cap capsule Take 1 capsule by mouth twice daily. 60 capsule 1 No current facility-administered medications for this visit. REVIEW OF SYSTEMS: GENERAL: Negative for: Weight loss or gain, Fever or Chills, Weakness and Sleep difficulties. HEENT: Positive for: Headache, Impaired Vision and Glasses, Dentures, Negative for: Hearing Impairment, Ringing in Ears, Nosebleeds, Poor Dental Care and Bleeding Gums NECK: Positive for: Pain related to OA, Negative for:Swelling and Stiffness RESPIRATORY: Positive for: Cough and Wheezing- on occasion, Negative for:Blood in Sputum and Apnea GASTROINTESTINAL: Negative for: Trouble swallowing, Heartburn, Change in bowel habits, Blood in stool, Dark black stools MUSCULOSKELETAL: Positive for: Muscle or joint pain , Negative for: Stiffness and Joint swelling NEUROLOGIC/PSYCHIATRIC: Positive for: Nervousness or anxiety , Negative for: Weakness, Paralysis, Numbness, Tingling, Tremor, Depressed mood SKIN: Negative for: Rash, Itching HEMATOLOGICAL/LYMPHATIC: Positive for: Easy bruising , Negative for: Easy bleeding ENDOCRINE: Negative for: Heat or Cold Intolerance, Excessive Sweating, Frequent Urination, Frequent Thirst PHYSICAL EXAMINATION: There were no vitals filed for this visit. General: no distress, pleasant and conversational during visit Skin: No clubbing, no cyanosis. Neck: Neck veins are not distended, left carotid bruit, soft, no right carotid bruit noted Lungs: Chest clear to auscultation Heart: Rhythm: RRR with extrasystoles, Rate: normal, S1: normal intensity, S2: normal intensity, S3: No, S4: No, no murmur Abdomen: Palpation normal, Bowel Sounds: Present Extremities: Normal exam of the extremities, no edema Peripheral Pulses: Normal CARDIOVASCULAR MEDICINE TESTING: No Cardiovascular testing perfomed today. I have personally reviewed the Laboratory Testing and Echocardiogram. Learning Needs NEW or CONSULT patient: YES Do you have any educational needs related to your visit today? YES Are there any limiting factors that affect learning (including physical limitations): None What method of teaching do you learn best from: Verbal Instruction IMPRESSION: NYHA Functional Class: II Stage: B heart failure Heart failure is stable at this time. Pt denies any increased symptom burden. She is taking her medications as prescribed. She is attempting to follow low sodium diet. Discussed at length during visit, heart failure zones, low sodium diet, fluid and fluid management, medications for HF, signs and symptoms of heart failure exacerbation, and exercise guidelines. All contact information for clinic was given to patient. Discussed when to call MD/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 or go to ED. Discussed follow up. At this time, she is doing quite well. She reports that she lives over an hour away and would like to be seen in HF Clinic on a PRN basis. As above, she is aware that she can call clinic if she is having symptoms and if needed an appointment can be made. She will continue on her current medications at this time. She does report that she is running out of Albuterol nebulizer vials. She is requesting prescription for refills until she can be seen by Dr. Rowe. Rx sent to pharmacy of choice. Her BP was elevated today. She has been checking it at home and reports that she has not seen frequent or consistent high readings. Instructed patient to call if she notes a change in her BP. Pt states understanding of plan of care. PLAN AND RECOMMENDATIONS: 1. Continue current medications at current doses. 2. Daily weights. Call if weight increases by 3-4 lbs in 1-4 days period of time. 3. Continue low sodium diet. 4. Activity as tolerated. Rest breaks as needed. 5. RTC as needed for symptoms. Followup appointment with Dr. Rahman in February. COUNSELING: We discussed the following non-pharmacological measures during this visit: ? Smoking and alcohol abstinence/cessation, if applicable ? Dietary and medication compliance ? Monitoring daily weights and blood pressures ? Exercise regimen ? When to call our office Heart Failure Education Booklet: given today. Counseled regarding low sodium diet, medications, and the role they play in the management of heart failure. Reviewed HF zones sheet and all contact information for clinic given to patient. Discussed red flags and when to call MD/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 or go to ED. Medications reconciled at end of visit: yes I spent 45 minutes in this visit, with more than 50% of the time devoted to patient counseling. SIGNATURE: Brian Rader APRN.CNP PATIENT NAME: Marimar Wang DATE: August 26, 2019 TIME: 1:15 PM Brian Rader APRN.CNP 08/26/2019 2:21 PM Signed 1. Continue current medications as prescribed. 2. Weigh yourself daily. Call me if your weight increases by 3-4 pounds in a 1-4 day period of time. 3. Continue low salt (2000 mg per day) diet. 4. Be as active as you are able. If you get tired, just stop and rest for a while. 5. Come back and see me as needed. If you have any question or concern, you can call me at [phone]. Referring Provider: RONIT RAHMAN [[id number]] Allergies As of Date: 08/26/2019 Noted Allergy Reaction CYMBALTA (DULOXETINE) 11/26/2014 5 - Intolerance Comments: Headaches DILAUDID (HYDROMORPHONE (BULK)) 06/12/2012 11 - Vomiting horse serum [Other] 04/16/2005 MORPHINE 05/21/2016 11 - Vomiting NSAIDS (NON-STEROIDAL ANTI-INFLAM*04/16/2005 10 - Anaphylaxis Comments: Had anaphylactic reaction to Aleve VIBRAMYCIN (DOXYCYCLINE CALCIUM) 04/16/2005 VICODIN (HYDROCODONE-ACETAMINOPH E*04/16/2005 11 - Vomiting Comments: Can take if given antiemetic at same time Date Reviewed: 08/26/2019 Reviewed by: Brian (District Court Bailiff) [place] - Fully Assessed Reason for Visit: Shortness of Breath [227] Primary Visit Diagnosis:Chronic diastolic CHF (congestive heart failure) (HCC) [I50.32] Other Visit Diagnoses:Essential hypertension [I10] PVC's (premature ventricular contractions) [I49.3] Hyperlipidemia with target LDL less than 130 [E78.5] TY (dyspnea on exertion) [R06.09] Order(s):albuterol (PROVENTIL) 2.5 mg /3 mL (0.083 %) nebulizer solutionUse 3 mL via nebulizer every 6 hours as needed for Wheezing/Shortness of Breath.Disp: 1 PackageRfl: 0 Prescriptions as of 08/26/2019 Sig: ALBUTEROL SULFATE 2.5 MG/3 ML* Use 3 mL via nebulizer every * LEFLUNOMIDE 20 MG TABLET Take 1 tablet by mouth once d* FLUOXETINE 20 MG CAPSULE Take 3 capsules by mouth once* ONDANSETRON 4 MG DISINTEGRATI* Take 1 tablet by mouth every * ALBUTEROL SULFATE HFA 90 MCG/* Inhale 2 Puffs as instructed * FUROSEMIDE 40 MG TABLET Take 1 tablet by mouth once d* BUPROPION XL 150 MG TAB Take 1 tablet by mouth once d* MOMETASONE 50 MCG/ACTUATION N* Use 2 Sprays in the nose once* CHOLECALCIFEROL (VITAMIN D3) * Take 1 capsule by mouth one t* GABAPENTIN 600 MG TABLET Take 1 tablet by mouth three * CYCLOBENZAPRINE 10 MG TABLET Take 1 tablet by mouth daily * FLUTICASONE FUROATE 200 MCG-V* Inhale 1 Inhalation as instru* COMPOUNDED PRESCRIPTION Nebulizer for home use. Diagn* SIMVASTATIN 40 MG TABLET Take 1 tablet by mouth daily * COENZYME Q10 100 MG CAPSULE Take 1 capsule by mouth twice* Problem List As Of Date 08/26/2019 Noted Resolved Fracture of triquetrum of left wrist, closed [S*02/14/2012 07/31/2019 More... Rheumatoid arthritis involving multiple sites (*06/12/2012 More... More... Fibromyalgia [M79.7] 03/11/2014 More... Depression [F32.9] 03/11/2014 More... Asthma [J45.909] 03/11/2014 More... Abdominal pain [R10.9] 03/11/2014 04/22/2014 More... Mycoplasma pneumonia [J15.7] 03/23/2014 06/03/2014 More... Carotid artery disease (HCC) [I73.9] 04/22/2014 07/31/2019 More... Hyperlipidemia with target LDL less than 130 [E*06/03/2014 More... Insomnia [G47.00] 09/03/2014 More... Hip pain [M25.559] 09/30/2014 Thoracic or lumbosacral neuritis or radiculitis*09/30/2014 Piriformis syndrome [G57.00] 09/30/2014 Intermittent palpitations [R00.2] 12/13/2014 PVC's (premature ventricular contractions) [I49*01/10/2015 Anemia [D64.9] 03/01/2015 More... Iron 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 blood los*03/09/2015 More... Iron malabsorption [K90.9] 03/18/2015 More... RPE mottling of macula [H35.89] 07/27/2015 Dry eyes [H04.123] 07/27/2015 Dermatochalasis of both upper eyelids [H02.831,*07/27/2015 Nuclear sclerotic cataract of both eyes [H25.13]07/27/2015 02/23/2016 Floaters [H43.399] 07/27/2015 02/23/2016 Dermatochalasis of left upper eyelid [H02.834] 07/27/2015 07/31/2019 Rheumatoid arthritis involving multiple sites w*08/02/2015 More... Vitreous floaters of both eyes [H43.393] 08/25/2015 Vitamin D deficiency [E55.9] 10/18/2015 More... Morbid obesity (HCC) [E66.01] 10/18/2015 02/12/2017 More... SOB (shortness of breath) [R06.02] 02/22/2016 07/31/2019 More... Combined form of age-related cataract, both eye*02/23/2016 Osteoporosis [M81.0] 07/09/2016 More... TY (dyspnea on exertion) [R06.09] 02/12/2017 Morbid obesity with BMI of 40.0-44.9, adult (HC*02/12/2017 07/31/2019 Essential hypertension [I10] 02/12/2017 Dry eye syndrome [H04.129] 02/27/2017 Primary osteoarthritis of both hands [M19.041, *04/02/2017 GERD without esophagitis [K21.9] 09/05/2017 More... Absolute anemia [D64.9] 09/05/2017 02/06/2018 More... Generalized osteoarthrosis [M15.9] 10/07/2017 Hyperopia, bilateral [H52.03] 04/22/2018 Regular astigmatism, bilateral [H52.223] 04/22/2018 Presbyopia [H52.4] 04/22/2018 Class 1 obesity with body mass index (BMI) of 3*01/28/2019 GI bleed [K92.2] 01/28/2019 07/31/2019 Carotid artery stenosis [I65.29] 07/31/2019 Chronic diastolic CHF (congestive heart failure*08/24/2019 Other instructions from your clinician: 1. Continue current medications as prescribed. 2. Weigh yourself daily. Call me if your weight increases by 3-4 pounds in a 1-4 day period of time. 3. Continue low salt (2000 mg per day) diet. 4. Be as active as you are able. If you get tired, just stop and rest for a while. 5. Come back and see me as needed. If you have any question or concern, you can call me at [phone]. Prescriptions ordered this encounter Disp Refills Start End ALBUTEROL SULFATE 2.5 MG/3 ML (0.083* 1 Pa* 0 08/26/2019 Route: NEBULIZATION Sig: Use 3 mL via nebulizer every 6 hours as needed for Wheezing/Shortness of Breath. Medications Discontinued During This Encounter albuterol (PROVENTIL) 2.5 mg /3 mL (* 1 Pa* 0 12/01/2018 08/26/2019 Route: NEBULIZATION -UNSPEC Sig: Use 3 mL via nebulizer every 6 hours as needed for Wheezing/Shortness of Breath. Disc: Reason for discontinue is not on file. Level of Service: NEW PATIENT VISIT LEVEL 4 [[id number]] Encounter Status:Closed by BRIAN RADER CNP on 08/26/19 Normal [facility] PROGRESSon 08-26-2019 PROGRESS HNO ID: [id number] Author: Brian Rader Service: ? Author Type: Nurse Practitioner Type: Progress Notes Filed: 08/26/2019 3:18 PM Note Text: [facility] Heart Failure Clinic OUTPATIENT VISIT DATE August 26, 2019 OUTPATIENT VISIT TYPE NEW PRIMARY CARE PHYSICIAN: SELENE PIERRE MD REFERRING PHYSICIAN: No referring provider defined for this encounter. CHIEF COMPLAINT: No chief complaint on file. HISTORY OF PRESENT ILLNESS: Marimar Wang is a 59 year old female who presents today for an initial visit to the Heart Failure Clinic. Pt with PMH significant for Sjogren's disease, RA, osteoporosis, HTN, hyperlipidemia, GERD-s/p Vanessa fundoplication- April 2019, fibromyalgia, depression, COPD, asthma, asymptomatic PVCs, and chronic diastolic heart failure. Pt has had no recent hospitalization for HF. Pt was seen in Dr. Rahman' office on 08/24/2019. Pt appeared to be stable with no symptoms of decompensation. She was referred to the HF Clinic for continued evaluation and education. Today, patient states that she is continuing to feel well. Reports that her weight has been stable without any sharp increases in weight. Office weight is also stable. She reports that she has intermittent TY that she has had for months now. She reports that going back on Lasix has helped this to improve. She reports that she notes increased TY when she is walking up hills or climbing stairs. When she is engaging in these activities, she requires a rest break in order to complete it. She denies CP, SOB at rest, PND, orthopnea, or the presence of edema. States that intermittently she will have ankle and dorsum of the foot edema but, it will resolve with elevation and use of Lasix. She reports that she is monitoring her sodium intake and is taking her medications as prescribed. SOB: Yes: with moderate exertion and stair climbing Fatigue: Yes: at baseline Orthopnea:No, sleeps with 2 pillows PND: No Edema:No Chest Pain:No (0/10) Palpitations:No Dizziness/Lightheadednes s:No Syncope:No Appetite: good Diet:low salt (2000 mg) Fluid Restriction: No Regular Exercise: No PAST CARDIAC HISTORY: Heart failure: diastolic Non-ischemic, subtype: Hypertensive. Her cardiac history is also significant for HTN, hyperlipidemia. Device: NA. ECHO: 02/14/2020: The left ventricle is normal in size. There is mild concentric left ventricular hypertrophy. Left ventricular systolic function is normal. EF = 58 ? 5% (2D biplane) Grade I left ventricular diastolic dysfunction. - The right ventricle is normal in size. Right ventricular systolic function is normal. ? -?There is mild mitral insufficiency present. - Exam was compared with the prior echocardiographic exam performed on 08/16/2017. The amount of mitral insufficiency has decreased. PAST MEDICAL HISTORY Diagnosis Date - Asthma - Homer lesion, acute 01/30/2019 - Carotid artery disease (HCC) - COPD (chronic obstructive pulmonary disease) (HCC) - Depression - Diverticulosis - Fibromyalgia - Fibromyalgia - GERD (gastroesophageal reflux disease) - GI bleed 02/2019 - Hiatal hernia - Hyperlipidemia - Hypertension - Insomnia - Iron deficiency anemia - Osteoarthritis - Osteoporosis - Piriformis syndrome - PVC's (premature ventricular contractions) - Rheumatoid arthritis (HCC) - Sjogren's disease (HCC) - Vitamin D deficiency PAST SURGICAL HISTORY Procedure Laterality Date - COLONOSCOP W/ OR W/O [facility] SPEC 04/11/2015 Colonoscopy - COLONOSCOP W/ OR W/O [facility] SPEC 09/23/2017 Colonoscopy repeat 10 years - EGD 01/30/2019 Homer's erosions; Dr. Rudolph - EGD W/O OR W/BRUSH/WASH 05/07/2016 EGD - EGD W/O OR W/BRUSH/WASH 09/23/2017 EGD - LAPS RPR PARAESPHGL HRNA INCL FUNDPLSTY W/MESH 05/07/2019 Dr. Pat - MRI BRAIN W/O CONTRAST 07/20/11 - PAST SURGICAL HISTORY OF 1983, 1986 2 C Sections - PAST SURGICAL HISTORY OF 1982 Left shoulder, has screw in shoulder - TOTAL KNEE REPLACEMENT 2009 Total left knee surgery Social History Tobacco Use - Smoking status: Former Smoker Packs/day: 1.00 Years: 31.00 Pack years: 31.00 Types: Cigarettes Last attempt to quit: 01/01/2015 Years since quittin.6 - Smokeless tobacco: Never Used - Tobacco comment: ETS: Father in childhood home. Active smoker in current home. Substance Use Topics - Alcohol use: No Frequency: Never Drinks per session: Patient refused Binge frequency: Never - Drug use: No FAMILY HISTORY Problem Relation Age of Onset - Hypertension Mother - Stroke Mother - Cataract Mother - Asthma Mother - other (ESRD) Mother - Heart Father - Glaucoma Father - Ischemic Heart Disease Father age 42 from [place] - Hypertension Sister - other (Other) Brother 18 MVA - Depression Daughter - other (PTSD) Daughter - other (Anxiety) Daughter - Diabetes Daughter ALLERGIES Allergen Reactions - Cymbalta [Duloxetin* Intolerance Headaches - Dilaudid [Hydromorp* Vomiting - Horse Serum [Other] - Morphine Vomiting - Nsaids (Non-Steroid* Anaphylaxis Had anaphylactic reaction to Aleve - Vibramycin [Doxycyc* - Vicodin [Hydrocodon* Vomiting Can take if given antiemetic at same time CURRENT MEDICATIONS: Current Outpatient Medications Medication Sig Dispense Refill - leflunomide (ARAVA) 20 mg tablet Take 1 tablet by mouth once daily. 60 tablet 2 - FLUoxetine (PROZAC) 20 mg capsule Take 3 capsules by mouth once daily. 270 capsule 3 - ondansetron orally disintegrating (ZOFRAN ODT) 4 mg disintegrating tablet Take 1 tablet by mouth every 6 hours as needed for Nausea/Vomiting. 30 tablet 1 - albuterol HFA (VENTOLIN HFA) 90 mcg/actuation inhaler Inhale 2 Puffs as instructed every 4 hours as needed for Wheezing/Shortness of Breath. 1 Inhaler 0 - furosemide (LASIX) 40 mg tablet Take 1 tablet by mouth once daily. 30 tablet 5 - buPROPion XL (WELLBUTRIN XL) 150 mg 24 hr tablet Take 1 tablet by mouth once daily. 90 tablet 3 - mometasone (NASONEX) 50 mcg/actuation nasal spray Use 2 Sprays in the nose once daily. Rinse mouth after use. 1 Bottle 11 - cholecalciferol, Vitamin D3, (VITAMIN D3) 50,000 unit cap capsule Take 1 capsule by mouth one time a week. (ONE CAPSULE) FOR VITAMIN D DEFICIENCY 12 capsule 1 - gabapentin (NEURONTIN) 600 mg tablet Take 1 tablet by mouth three times daily for 90 days. 270 tablet 1 - cyclobenzaprine (FLEXERIL) 10 mg tablet Take 1 tablet by mouth daily at bedtime. 60 tablet 3 - fluticasone-vilanterol (BREO ELLIPTA) 200-25 mcg/dose inhaler Inhale 1 Inhalation as instructed once daily. - >Nebulizer For Home Nebulizer for home use. Diagnosis: Moderate persistent asthma with acute exacerbation and pneumonia 1 Each 0 - albuterol (PROVENTIL) 2.5 mg /3 mL (0.083 %) nebulizer solution Use 3 mL via nebulizer every 6 hours as needed for Wheezing/Shortness of Breath. 1 Package 0 - simvastatin (ZOCOR) 40 mg tablet Take 1 tablet by mouth daily at bedtime. 90 tablet 5 - coenzyme Q10 (CO Q-10) 100 mg cap capsule Take 1 capsule by mouth twice daily. 60 capsule 1 No current facility-administered medications for this visit. REVIEW OF SYSTEMS: GENERAL: Negative for: Weight loss or gain, Fever or Chills, Weakness and Sleep difficulties. HEENT: Positive for: Headache, Impaired Vision and Glasses, Dentures, Negative for: Hearing Impairment, Ringing in Ears, Nosebleeds, Poor Dental Care and Bleeding Gums NECK: Positive for: Pain related to OA, Negative for:Swelling and Stiffness RESPIRATORY: Positive for: Cough and Wheezing- on occasion, Negative for:Blood in Sputum and Apnea GASTROINTESTINAL: Negative for: Trouble swallowing, Heartburn, Change in bowel habits, Blood in stool, Dark black stools MUSCULOSKELETAL: Positive for: Muscle or joint pain , Negative for: Stiffness and Joint swelling NEUROLOGIC/PSYCHIATRIC: Positive for: Nervousness or anxiety , Negative for: Weakness, Paralysis, Numbness, Tingling, Tremor, Depressed mood SKIN: Negative for: Rash, Itching HEMATOLOGICAL/LYMPHATIC: Positive for: Easy bruising , Negative for: Easy bleeding ENDOCRINE: Negative for: Heat or Cold Intolerance, Excessive Sweating, Frequent Urination, Frequent Thirst PHYSICAL EXAMINATION: There were no vitals filed for this visit. General: no distress, pleasant and conversational during visit Skin: No clubbing, no cyanosis. Neck: Neck veins are not distended, left carotid bruit, soft, no right carotid bruit noted Lungs: Chest clear to auscultation Heart: Rhythm: RRR with extrasystoles, Rate: normal, S1: normal intensity, S2: normal intensity, S3: No, S4: No, no murmur Abdomen: Palpation normal, Bowel Sounds: Present Extremities: Normal exam of the extremities, no edema Peripheral Pulses: Normal CARDIOVASCULAR MEDICINE TESTING: No Cardiovascular testing perfomed today. I have personally reviewed the Laboratory Testing and Echocardiogram. Learning Needs NEW or CONSULT patient: YES Do you have any educational needs related to your visit today? YES Are there any limiting factors that affect learning (including physical limitations): None What method of teaching do you learn best from: Verbal Instruction IMPRESSION: NYHA Functional Class: II Stage: B heart failure Heart failure is stable at this time. Pt denies any increased symptom burden. She is taking her medications as prescribed. She is attempting to follow low sodium diet. Discussed at length during visit, heart failure zones, low sodium diet, fluid and fluid management, medications for HF, signs and symptoms of heart failure exacerbation, and exercise guidelines. All contact information for clinic was given to patient. Discussed when to call MD/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 or go to ED. Discussed follow up. At this time, she is doing quite well. She reports that she lives over an hour away and would like to be seen in HF Clinic on a PRN basis. As above, she is aware that she can call clinic if she is having symptoms and if needed an appointment can be made. She will continue on her current medications at this time. She does report that she is running out of Albuterol nebulizer vials. She is requesting prescription for refills until she can be seen by Dr. Rowe. Rx sent to pharmacy of choice. Her BP was elevated today. She has been checking it at home and reports that she has not seen frequent or consistent high readings. Instructed patient to call if she notes a change in her BP. Pt states understanding of plan of care. PLAN AND RECOMMENDATIONS: 1. Continue current medications at current doses. 2. Daily weights. Call if weight increases by 3-4 lbs in 1-4 days period of time. 3. Continue low sodium diet. 4. Activity as tolerated. Rest breaks as needed. 5. RTC as needed for symptoms. Followup appointment with Dr. Rahman in February. COUNSELING: We discussed the following non-pharmacological measures during this visit: ? Smoking and alcohol abstinence/cessation, if applicable ? Dietary and medication compliance ? Monitoring daily weights and blood pressures ? Exercise regimen ? When to call our office Heart Failure Education Booklet: given today. Counseled regarding low sodium diet, medications, and the role they play in the management of heart failure. Reviewed HF zones sheet and all contact information for clinic given to patient. Discussed red flags and when to call MD/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 or go to ED. Medications reconciled at end of visit: yes I spent 45 minutes in this visit, with more than 50% of the time devoted to patient counseling. SIGNATURE: Brian Rader APRN.CNP PATIENT NAME: Marimar Wang DATE: August 26, 2019 TIME: 1:15 PM [facility] 03-02-2019 [facility] HNO ID: [id number] Author: KIM Moffett (Ct) Service: Nuclear Medicine Author Type: Clinical Adhesion Tester Type: Allied Health Filed: 03/02/2019 12:03 PM Note Text: RADIOLOGY SERVICE PROGRESS NOTE SERVICE DATE: 03/02/2019 SERVICE TIME: 12:02 PM PATIENT IDENTITY VERIFICATION COMPLETED USING TWO (2) METHODS: Patient confirmed name and Date of verbally. PATIENT GENDER DATA: .female : No ALLERGIES: Reviewed and unchanged MEDICATIONS REVIEWED: Not applicable PATIENT RELEVANT IMPLANT DATA REVIEWED: Not Applicable CREATININE: Creatinine Date Value Ref Range Status 01/30/2019 0.54 0.51 - 0.95 mg/dL Final 01/09/2019 0.66 0.58 - 0.96 mg/dL Final 04/28/2018 0.64 0.51 - 0.95 mg/dL Final eGFR-All Other Races Date Value Ref Range Status 01/09/2019 >60 . Final Comment: eGFR (Estimated GFR) Units of measure: mL/min/1.73 meters squared eGFR is derived from the reexpressed MDRD Study equation using the following parameters: serum creatinine, age, gender and race. The creatinine assay has been calibrated to be traceable to IDMS. An eGFR <60 mL/min/1.73m2 for >3 months is consistent with chronic kidney disease. Refer to KDOQI guidelines for clinical interpretation. In patients with unstable renal function, e.g. those with acute kidney injury, the eGFR may not accurately reflect actual GFR. eGFR- Date Value Ref Range Status 01/09/2019 >60 Final P.O.C.T. RESULTS: N/A March 02, [address] PERFORMED: No IV SITE: Ambulatory: A peripheral IV was started in the Right forearm with a Angio cath: 22 gauge. POST EXAM PIV STATUS: Discontinued PROCEDURE TYPE: NM Stress: 15.4mCi [id number] was administered IV for Rest Imaging at 08:53 by KIM Moffett . 46.4 mCi [id number] was administered IV for Stress Imaging at 09:59 by KIM Moffett . ADMINISTRATION TIME: PATIENT DISCHARGED TO: Ambulatory patient, left [place] department area. A Diagnostic radioactive procedure has taken place, with no further precautions necessary other than routine body substance precautions. More information regarding radiation safety can be found using this link: [email or web address] SIGNATURE: KIM Moffett PATIENT NAME: Marimar Wang DATE: March 02, 2019 TIME: 12:02 PM PAGER/CONTACT #: [facility] CARDIAC PERF STRESS/PHARM on 03-02-2019 [place] CARDIAC PERF STRESS/PHARM * * *Final Report* * * DATE OF EXAM: Mar 02 2019 11:00AM ALEX 0006 - [place] CARDIAC PERF STRESS/PHARM / PROCEDURE REASON: multiple diagnoses * * * * Physician Interpretation * * * * PATIENT: Name: KATHLEEN Keita Age: 58 years Gender: F CONCLUSIONS: 1. SPECT Perfusion Study: Normal. 2. There is no scintigraphic evidence for inducible ischemia. 3. No evidence of scarred myocardium. 4. Functional capacity N/A (pharmacological). 5. Left ventricle is normal in size. The left ventricle systolic function is normal. 6. Right ventricle is normal in size. 7. This is a low risk scan. LVEF % 71 Prior Study Comparison Prior nuclear cardiology exam was performed on [..].03/07/2016. Nuclear Med Report:1-Day Tc-Tetrofosmin Gated SPECT Myocardial Perfusion with Regadenoson Stress: Myocardial perfusion imaging was performed at rest 30 minutes following the IV injection of Tc-99m tetrofosmin. The patient received 0.4 mg of regadenoson, via rapid IV push, immediately followed by Tc-99m tetrofosmin IV. Gated post stress tomographic imaging was performed 30 to 60 minutes later. See administered doses below. [facility] Date of service: 03/02/2019 9:02:38 AM Ordering Physician: Vicente Merrill Requesting Physician: Indication: CP - ECG uniterpretable OR unable to exercise. Interpreting physician: Ortega Son DO Patient History: History of hypertension, dyslipidemia, family hx of premature CAD, Prior smoker and coronary heart disease. Medications currently taking are diuretic, anti-depressants and statins. Height: 160.02 cm BSA: 2.01 m? Weight: 91.17 kg BMI: 35.6 kg/m? Primary Rhythm: Sinus. Secondary Rhythm: Sinus, Non-Specific ST/T Wave Changes and PVC. Exam Type: Rest Stress Radiopharm: Tc-99m Tetrofosmin Tc-99m Tetrofosmin Dosage(mCi): 15.4 46.4 Atten Correction: not performed not performed Stress Agent: Regadenoson 0.4mg Supply provided from [facility] Resting Heart Rate: 80 bpm Resting Blood Press: 154/74 mmHg Image Quality The overall study imaging quality was deemed to be good. FINDINGS: LVEF: 71 % LEFT VENTRICLE The left ventricle is normal in size. Left ventricular systolic function is normal. Right Ventricle The right ventricle is normal in size. Stress Test Findings: There is no scintigraphic evidence for inducible ischemia. There is no evidence of scarring. The stress test was terminated due to the following: End of Protocol. Peak HR 102 bpm. (64 % MPHR) Peak BP 181 mmHg/75 mmHg Patient experienced shortness of breath and nausea during stress. Stress ECG normal ST segment response and normal sinus rhythm. Stress complications: none. Final Bike Mechanic: SRIKANTH Transcribe Date/Time: Mar 02 2019 9:02A Dictated by : ORTEGA SON DO This examination was interpreted and the report reviewed and electronically signed by: ORTEGA SON DO on Mar 02 2019 4:18PM EST [id number] [facility] NUCLEAR STRESS LEXISCAN (CAR D)on 03-02-2019 NUCLEAR STRESS LEXISCAN (CARD) NAME : MARIMAR WANG PID : [id number] : 1960 Gender : Female Race : ORD : [id number] Procedure Date : Mar 02 2019 10:16:12 Edit Date : Mar 05 2019 08:53:18 Conclusions:PLEASE REFER TO IMAGING SECTION IN [facility] FOR COMPLETE INTERPRETATION OF STRESS TEST AND MYOCARDIAL PERFUSION IMAGING Protocol Name : SOHAN Time In Exercise Phase : 00:06:00 Max. Systolic BP : 181 mmHg Max Diastolic BP : 75 mmHg Max Heart Rate : 110 BPM Max Predicted Heart Rate : 161 BPM Recovery ECG Response (OLD) : Reason For Termination : End of Protocol Test Reason : Dyspnea with Exercise Location :[facility] Overread By : ORTEGA SON D.O. Edited By : Yanet Valladares Referred By : RONIT RAHMAN Acquired by : ULISES GARCIA [facility] 02-27-2019 [facility] Telephone ([facility]) -------- MARIMAR WANG ([id number]) 1960 F Date Time Provider Department 02/27/19 NIKKIE BOSTON (RN) CDLE During your visit today, we recorded the following information about you: Nikkie Boston, RN, RN 02/27/2019 12:56 PM Signed Spoke with patient regarding reminder for stress test on Saturday and given instructions Allergies As of Date: 02/27/2019 Noted Allergy Reaction CYMBALTA (DULOXETINE) 11/26/2014 5 - Intolerance Comments: Headaches DILAUDID (HYDROMORPHONE (BULK)) 06/12/2012 11 - Vomiting horse serum [Other] 04/16/2005 MORPHINE 05/21/2016 11 - Vomiting NSAIDS (NON-STEROIDAL ANTI-INFLAM*04/16/2005 10 - Anaphylaxis Comments: Had anaphylactic reaction to Aleve VIBRAMYCIN (DOXYCYCLINE CALCIUM) 04/16/2005 VICODIN (HYDROCODONE-ACETAMINOPH E*04/16/2005 11 - Vomiting Date Reviewed: 02/20/2019 Reviewed by: Ronit Rahman DO - Fully Assessed Reason for Visit: Reminder Call [[id number]] Prescriptions as of 02/27/2019 Sig: FUROSEMIDE 40 MG TABLET Take 1 tablet by mouth once d* ONDANSETRON HCL 4 MG TABLET Take 1 tablet by mouth every * OMEPRAZOLE 20 MG CAPSULE,CHARLEY* Take 2 capsules by mouth twic* FLUOXETINE 20 MG CAPSULE Take 3 capsules by mouth once* ALBUTEROL SULFATE HFA 90 MCG/* Inhale 2 Puffs as instructed * DOCUSATE SODIUM 100 MG CAPSULE Take 1 capsule by mouth twice* Patient not taking: Reported on 02/20/2019 CYCLOBENZAPRINE 10 MG TABLET Take 1 tablet by mouth daily * CHOLECALCIFEROL (VITAMIN D3) * Take 1 capsule by mouth once * ADALIMUMAB 40 MG/0.8 ML SUBCU* INJECT 40MG SUBCUTANEOUSLY EV* Patient taking differently: INJECT 40MG SUBCUTANEOUSLY EV* LEFLUNOMIDE 20 MG TABLET Take 1 tablet by mouth once d* COMPOUNDED PRESCRIPTION Nebulizer for home use. Diagn* ALBUTEROL SULFATE 2.5 MG/3 ML* Use 3 mL via nebulizer every * BUPROPION XL 150 MG TAB Take 1 tablet by mouth once d* GABAPENTIN 600 MG TABLET Take 1 tablet by mouth three * SIMVASTATIN 40 MG TABLET Take 1 tablet by mouth daily * COENZYME Q10 100 MG CAPSULE Take 1 capsule by mouth twice* Problem List As Of Date 02/27/2019 Noted Resolved Fracture of triquetrum of left wrist, closed [S*INVALID FOR* More... Rheumatoid arthritis involving multiple sites (*INVALID FOR* More... More... Fibromyalgia [M79.7] INVALID FOR* More... Depression [F32.9] INVALID FOR* More... Asthma [J45.909] INVALID FOR* More... Abdominal pain [R10.9] INVALID FOR*04/22/2014 More... Mycoplasma pneumonia [J15.7] INVALID FOR*06/03/2014 More... Carotid artery disease (HCC) [I77.9] INVALID FOR* More... Hyperlipidemia with target LDL less than 130 [E*INVALID FOR* More... Insomnia [G47.00] INVALID FOR* More... Hip pain [M25.559] INVALID FOR* Thoracic or lumbosacral neuritis or radiculitis*INVALID FOR* Piriformis syndrome [G57.00] INVALID FOR* Intermittent palpitations [R00.2] INVALID FOR* PVC's (premature ventricular contractions) [I49*INVALID FOR* Anemia [D64.9] INVALID FOR* More... Iron 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 blood los*INVALID FOR* More... Iron malabsorption [K90.9] INVALID FOR* More... RPE mottling of macula [H35.89] INVALID FOR* Dry eyes [H04.123] INVALID FOR* Dermatochalasis of right upper eyelid [H02.831] INVALID FOR* Nuclear sclerotic cataract of both eyes [H25.13]INVALID FOR*02/23/2016 Floaters [H43.399] INVALID FOR*02/23/2016 Dermatochalasis of left upper eyelid [H02.834] INVALID FOR* Rheumatoid arthritis involving multiple sites w*INVALID FOR* More... Vitreous floaters of both eyes [H43.393] INVALID FOR* Vitamin D deficiency [E55.9] INVALID FOR* More... Morbid obesity (HCC) [E66.01] INVALID FOR*02/12/2017 More... SOB (shortness of breath) [R06.02] INVALID FOR* More... Combined form of age-related cataract, both eye*INVALID FOR* Osteoporosis [M81.0] INVALID FOR* More... Dyspnea on exertion [R06.09] INVALID FOR* Morbid obesity with BMI of 40.0-44.9, adult (HC*INVALID FOR* Essential hypertension [I10] INVALID FOR* Dry eye syndrome [H04.129] INVALID FOR* Primary osteoarthritis of both hands [M19.041, *INVALID FOR* GERD without esophagitis [K21.9] INVALID FOR* More... Absolute anemia [D64.9] INVALID FOR*02/06/2018 More... Generalized osteoarthrosis [M15.9] INVALID FOR* Hyperopia, bilateral [H52.03] INVALID FOR* Regular astigmatism, bilateral [H52.223] INVALID FOR* Presbyopia [H52.4] INVALID FOR* Obesity, Class II, BMI 35-39.9 [E66.9] INVALID FOR* GI bleed [K92.2] INVALID FOR* Encounter Status:Closed by NIKKIE BOSTON on 02/27/19 [facility] Vital Signs Date Time Vital Sign Value Performing Clinician Facility 02-18-2025 12:50-0400 Body temperature 98.91 [degF] Treatment Wstr Work Phone: [facility] 02-18-2025 12:50-0400 Diastolic blood pressure 73 mm[Hg] Treatment Wstr Work Phone: [facility] 02-18-2025 12:50-0400 Heart rate 82 /min Treatment Wstr Work Phone: [facility] 02-18-2025 12:50-0400 SaO2% (BldA) [Mass fraction] 95 % Treatment Wstr Work Phone: [facility] 02-18-2025 12:50-0400 Systolic blood pressure 159 mm[Hg] Treatment Wstr Work Phone: [facility] 02-09-2025 09:46-0400 Body height 157.48 cm Julio Arriaga 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-C Work Phone: [facility] 02-09-2025 09:46-0400 Body mass index (BMI) [Ratio] 33.3 kg/m2 Julio Arriaga 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-C Work Phone: [facility] 02-09-2025 09:46-0400 Body weight 82.55 kg Julio Arriaga 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-C Work Phone: [facility] 02-09-2025 09:46-0400 Diastolic blood pressure 76 mm[Hg] Julio Arriaga 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-C Work Phone: [facility] 02-09-2025 09:46-0400 Heart rate 68 /min Julio Arriaga 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-C Work Phone: [facility] 02-09-2025 09:46-0400 Respiratory rate 17 /min Julio Arriaga 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-C Work Phone: [facility] 02-09-2025 09:46-0400 SaO2% (BldA) [Mass fraction] 96 % Julio Arriaga 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-C Work Phone: [facility] 02-09-2025 09:46-0400 Systolic blood pressure 134 mm[Hg] Julio Arriaga 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-C Work Phone: [facility] 02-05-2025 10:43-0400 Body mass index (BMI) [Ratio] 31.03 kg/m2 Treatment Wstr Work Phone: [facility] 02-05-2025 10:43-0400 Body temperature 99 [degF] Treatment Wstr Work Phone: [facility] 02-05-2025 10:43-0400 Body weight 82 kg Treatment Wstr Work Phone: [facility] 02-05-2025 10:43-0400 Diastolic blood pressure 76 mm[Hg] Treatment Wstr Work Phone: [facility] 02-05-2025 10:43-0400 Heart rate 74 /min Treatment Wstr Work Phone: [facility] 02-05-2025 10:43-0400 Respiratory rate 16 /min Treatment Wstr Work Phone: [facility] 02-05-2025 10:43-0400 SaO2% (BldA) [Mass fraction] 96 % Treatment Wstr Work Phone: [facility] 02-05-2025 10:43-0400 Systolic blood pressure 166 mm[Hg] Treatment Wstr Work Phone: [facility] 02-02-2025 11:01-0400 Body height 157.48 cm Julio Arriaga NP-C Work Phone: [facility] 02-02-2025 11:01-0400 Body mass index (BMI) [Ratio] 33.5 kg/m2 Julio Arriaga NP-C Work Phone: [facility] 02-02-2025 11:01-0400 Body weight 83 kg Julio Arriaga NP-C Work Phone: [facility] 02-02-2025 11:01-0400 Diastolic blood pressure 77 mm[Hg] Julio Arriaga NP-C Work Phone: [facility] 02-02-2025 11:01-0400 Heart rate 75 /min Julio Arriaga 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-C Work Phone: [facility] 02-02-2025 11:01-0400 SaO2% (BldA) [Mass fraction] 96 % Julio Arriaga 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-C Work Phone: [facility] 02-02-2025 11:01-0400 Systolic blood pressure 160 mm[Hg] Julio Arriaga 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-C Work Phone: [facility] 01-14-2025 08:27-0400 Body height 157.48 cm Julio Arriaga 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-C Work Phone: [facility] 01-14-2025 08:27-0400 Body mass index (BMI) [Ratio] 33.5 kg/m2 Julio Arriaga 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-C Work Phone: [facility] 01-14-2025 08:27-0400 Body temperature 97.6 [degF] Julio Arriaag 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-C Work Phone: [facility] 01-14-2025 08:27-0400 Body weight 83 kg Julio Arriaga 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-C Work Phone: [facility] 01-14-2025 08:27-0400 Diastolic blood pressure 84 mm[Hg] Julio Arriaga 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-C Work Phone: [facility] 01-14-2025 08:27-0400 Heart rate 74 /min Julio Arriaga 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-C Work Phone: [facility] 01-14-2025 08:27-0400 Respiratory rate 20 /min Julio Arriaga 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-C Work Phone: [facility] 01-14-2025 08:27-0400 SaO2% (BldA) [Mass fraction] 96 % Julio Arriaga 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-C Work Phone: [facility] 01-14-2025 08:27-0400 Systolic blood pressure 167 mm[Hg] Julio Arriaga 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-C Work Phone: [facility] 01-07-2025 10:24-0400 Body temperature 97.11 [degF] Treatment Wstr Work Phone: [facility] 01-07-2025 10:24-0400 Diastolic blood pressure 60 mm[Hg] Treatment Wstr Work Phone: [facility] 01-07-2025 10:24-0400 Heart rate 75 /min Treatment Wstr Work Phone: [facility] 01-07-2025 10:24-0400 SaO2% (BldA) [Mass fraction] 93 % Treatment Wstr Work Phone: [facility] 01-07-2025 10:24-0400 Systolic blood pressure 124 mm[Hg] Treatment Wstr Work Phone: [facility] 12-27-2024 16:27-0400 Body temperature 98.2 [degF] Julio Arriaga 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-C Work Phone: [facility] 12-27-2024 16:27-0400 Diastolic blood pressure 58 mm[Hg] Julio Arriaga 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-C Work Phone: [facility] 12-27-2024 16:27-0400 Heart rate 70 /min Julio Arriaga 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-C Work Phone: [facility] 12-27-2024 16:27-0400 Respiratory rate 18 /min Julio Arriaga 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-C Work Phone: [facility] 12-27-2024 16:27-0400 SaO2% (BldA) [Mass fraction] 96 % Julio Arriaga 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-C Work Phone: [facility] 12-27-2024 16:27-0400 Systolic blood pressure 112 mm[Hg] Julio Arriaga 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-C Work Phone: [facility] 12-27-2024 14:43-0400 Body height 157.48 cm Julio Arriaga 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-C Work Phone: [facility] 12-27-2024 14:43-0400 Body mass index (BMI) [Ratio] 32.3 kg/m2 Julio Arriaga 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-C Work Phone: [facility] 12-27-2024 14:43-0400 Body weight 80.33 kg Julio ECHEVARRIA Work Phone: [facility] 11-30-2024 10:31-0400 Body mass index (BMI) [Ratio] 30.55 kg/m2 Delvin Ron MECHANICAL FIELD ENGINEER.TOBACCO SAMPLER Work Phone: [facility] 11-30-2024 10:31-0400 Body temperature 97.7 [degF] Delvin Ron MECHANICAL FIELD ENGINEER.TOBACCO SAMPLER Work Phone: [facility] 11-30-2024 10:31-0400 Body weight 80.74 kg Delvin Ron MECHANICAL FIELD ENGINEER.TOBACCO SAMPLER Work Phone: [facility] 11-30-2024 10:31-0400 Diastolic blood pressure 75 mm[Hg] Delvin Ron MECHANICAL FIELD ENGINEER.TOBACCO SAMPLER Work Phone: [facility] 11-30-2024 10:31-0400 Heart rate 80 /min Delvin Ron MECHANICAL FIELD ENGINEER.TOBACCO SAMPLER Work Phone: [facility] 11-30-2024 10:31-0400 SaO2% (BldA) [Mass fraction] 95 % Delvin Ron MECHANICAL FIELD ENGINEER.TOBACCO SAMPLER Work Phone: [facility] 11-30-2024 10:31-0400 Systolic blood pressure 129 mm[Hg] Delvin Ron MECHANICAL FIELD ENGINEER.TOBACCO SAMPLER Work Phone: [facility] 11-30-2024 10:18-0400 Body mass index (BMI) [Ratio] 30.64 kg/m2 Lab/Port Wstr Work Phone: [facility] 11-30-2024 10:18-0400 Body weight 80.97 kg Lab/Port Wstr Work Phone: [facility] 11-10-2024 09:49-0400 Body temperature 97.7 [degF] Sidney Joya MD Work Phone: [facility] 11-10-2024 09:49-0400 Diastolic blood pressure 81 mm[Hg] Sidney Joya MD Work Phone: [facility] 11-10-2024 09:49-0400 Heart rate 80 /min Sidney Joya MD Work Phone: [facility] 11-10-2024 09:49-0400 SaO2% (BldA) [Mass fraction] 94 % Sidney Joya MD Work Phone: [facility] 11-10-2024 09:49-0400 Systolic blood pressure 138 mm[Hg] Sidney Joya MD Work Phone: [facility] 11-09-2024 10:55-0400 Body mass index (BMI) [Ratio] 31.75 kg/m2 Annona Ron MECHANICAL FIELD ENGINEER.TOBACCO SAMPLER Work Phone: [facility] 11-09-2024 10:55-0400 Body temperature 98.1 [degF] Delvin Ron MECHANICAL FIELD ENGINEER.TOBACCO SAMPLER Work Phone: [facility] 11-09-2024 10:55-0400 Body weight 83.9 kg Delvin Ron MECHANICAL FIELD ENGINEER.TOBACCO SAMPLER Work Phone: [facility] 11-09-2024 10:55-0400 Diastolic blood pressure 70 mm[Hg] Annona Ron MECHANICAL FIELD ENGINEER.TOBACCO SAMPLER Work Phone: [facility] 11-09-2024 10:55-0400 Heart rate 99 /min Delvin Ron MECHANICAL FIELD ENGINEER.TOBACCO SAMPLER Work Phone: [facility] 11-09-2024 10:55-0400 SaO2% (BldA) [Mass fraction] 94 % Delvin Ron MECHANICAL FIELD ENGINEER.TOBACCO SAMPLER Work Phone: [facility] 11-09-2024 10:55-0400 Systolic blood pressure 140 mm[Hg] Annona Ron MECHANICAL FIELD ENGINEER.TOBACCO SAMPLER Work Phone: [facility] 11-06-2024 09:51-0400 Body temperature 97.9 [degF] Lab/Port Wstr Work Phone: [facility] 11-06-2024 09:51-0400 Diastolic blood pressure 75 mm[Hg] Lab/Port Wstr Work Phone: [facility] 11-06-2024 09:51-0400 Heart rate 62 /min Lab/Port Wstr Work Phone: [facility] 11-06-2024 09:51-0400 SaO2% (BldA) [Mass fraction] 98 % Lab/Port Wstr Work Phone: [facility] 11-06-2024 09:51-0400 Systolic blood pressure 122 mm[Hg] Lab/Port Wstr Work Phone: [facility] 11-03-2024 09:42-0400 Body temperature 97.81 [degF] Sidney Joya MD Work Phone: [facility] 11-03-2024 09:42-0400 Diastolic blood pressure 74 mm[Hg] Sidney Joya MD Work Phone: [facility] 11-03-2024 09:42-0400 Heart rate 76 /min Sidney Joya MD Work Phone: [facility] 11-03-2024 09:42-0400 SaO2% (BldA) [Mass fraction] 97 % Sidney Joya MD Work Phone: [facility] 11-03-2024 09:42-0400 Systolic blood pressure 152 mm[Hg] Sidney Joya MD Work Phone: [facility] 11-02-2024 09:34-0400 Body temperature 97.81 [degF] Treatment Wstr Work Phone: [facility] 11-02-2024 09:34-0400 Diastolic blood pressure 80 mm[Hg] Treatment Wstr Work Phone: [facility] 11-02-2024 09:34-0400 Heart rate 77 /min Treatment Wstr Work Phone: [facility] 11-02-2024 09:34-0400 Respiratory rate 18 /min Treatment Wstr Work Phone: [facility] 11-02-2024 09:34-0400 SaO2% (BldA) [Mass fraction] 95 % Treatment Wstr Work Phone: [facility] 11-02-2024 09:34-0400 Systolic blood pressure 136 mm[Hg] Treatment Wstr Work Phone: [facility] 10-30-2024 09:17-0400 Body mass index (BMI) [Ratio] 33.33 kg/m2 Josh Ashi DO Work Phone: [facility] 10-30-2024 09:17-0400 Body temperature 97.59 [degF] Josh Ashi DO Work Phone: [facility] 10-30-2024 09:17-0400 Body weight 88.22 kg Josh Ashi DO Work Phone: [facility] 10-30-2024 09:17-0400 Diastolic blood pressure 75 mm[Hg] Josh Mihiri DO Work Phone: [facility] 10-30-2024 09:17-0400 Heart rate 77 /min Josh Ashi DO Work Phone: [facility] 10-30-2024 09:17-0400 SaO2% (BldA) [Mass fraction] 96 % Josh Ashi DO Work Phone: [facility] 10-30-2024 09:17-0400 Systolic blood pressure 125 mm[Hg] Josh Mihiri DO Work Phone: [facility] 10-30-2024 03:30-0400 Body temperature 97.1 [degF] Julio Arriaga 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-C Work Phone: [facility] 10-30-2024 03:30-0400 Diastolic blood pressure 78 mm[Hg] Julio Arriaga 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-C Work Phone: [facility] 10-30-2024 03:30-0400 Heart rate 74 /min Julio Arriaga 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-C Work Phone: [facility] 10-30-2024 03:30-0400 Respiratory rate 18 /min Julio Arriaga 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-C Work Phone: [facility] 10-30-2024 03:30-0400 SaO2% (BldA) [Mass fraction] 97 % Julio Arriaga 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-C Work Phone: [facility] 10-30-2024 03:30-0400 Systolic blood pressure 136 mm[Hg] Julio Arriaga 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-C Work Phone: [facility] 10-30-2024 00:58-0400 Body height 157.48 cm Julio Arriaga 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-C Work Phone: [facility] 10-30-2024 00:58-0400 Body mass index (BMI) [Ratio] 35.5 kg/m2 Julio Arriaga 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-C Work Phone: [facility] 10-30-2024 00:58-0400 Body weight 88.1 kg Julio Arriaga 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-C Work Phone: [facility] 10-27-2024 09:47-0400 Body mass index (BMI) [Ratio] 33.48 kg/m2 Ricci Abreu MD Work Phone: [facility] 10-27-2024 09:47-0400 Body temperature 98.01 [degF] Ricci Abreu MD Work Phone: [facility] 10-27-2024 09:47-0400 Body weight 88.63 kg Ricci Abreu MD Work Phone: [facility] 10-27-2024 09:47-0400 Diastolic blood pressure 83 mm[Hg] Ricci Abreu MD Work Phone: [facility] 10-27-2024 09:47-0400 Heart rate 78 /min Ricci Abreu MD Work Phone: [facility] 10-27-2024 09:47-0400 SaO2% (BldA) [Mass fraction] 96 % Ricci Abreu MD Work Phone: [facility] 10-27-2024 09:47-0400 Systolic blood pressure 151 mm[Hg] Ricci Abreu MD Work Phone: [facility] 10-24-2024 23:00-0400 Body temperature 98.2 [degF] Julio Arriaga 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-C Work Phone: [facility] 10-24-2024 23:00-0400 Diastolic blood pressure 70 mm[Hg] Julio Arriaga 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-C Work Phone: [facility] 10-24-2024 23:00-0400 Heart rate 80 /min Julio Arriaga 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-C Work Phone: [facility] 10-24-2024 23:00-0400 Respiratory rate 12 /min Julio Arriaga 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-C Work Phone: [facility] 10-24-2024 23:00-0400 SaO2% (BldA) [Mass fraction] 96 % Julio Arriaga 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-C Work Phone: [facility] 10-24-2024 23:00-0400 Systolic blood pressure 150 mm[Hg] Julio Arriaga 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-C Work Phone: [facility] 10-24-2024 21:03-0400 Body mass index (BMI) [Ratio] 36.3 kg/m2 Julio Arriaga 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-C Work Phone: [facility] 10-24-2024 21:03-0400 Body weight 90 kg Julio Arriaga 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-C Work Phone: [facility] 10-24-2024 20:58-0400 Body height 157.48 cm Julio Arriaga 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-C Work Phone: [facility] 10-20-2024 09:34-0400 Body mass index (BMI) [Ratio] 33.62 kg/m2 Shawn Beltran MD Work Phone: [facility] 10-20-2024 09:34-0400 Body temperature 98.6 [degF] Shawn Beltran MD Work Phone: [facility] 10-20-2024 09:34-0400 Body weight 89 kg Shawn Beltran MD Work Phone: [facility] 10-20-2024 09:34-0400 Diastolic blood pressure 83 mm[Hg] Shawn Beltran MD Work Phone: [facility] Comment on above: hasn't taken BP meds 10-20-2024 09:34-0400 Heart rate 90 /min Shawn Beltran MD Work Phone: [facility] 10-20-2024 09:34-0400 Respiratory rate 20 /min Shawn Beltran MD Work Phone: [facility] 10-20-2024 09:34-0400 SaO2% (BldA) [Mass fraction] 97 % Shawn Beltran MD Work Phone: [facility] 10-20-2024 09:34-0400 Systolic blood pressure 163 mm[Hg] Shawn Beltran MD Work Phone: [facility] Comment on above: hasn't taken BP meds 10-16-2024 09:52-0400 Body mass index (BMI) [Ratio] 33.47 kg/m2 Treatment Wstr Work Phone: [facility] 10-16-2024 09:52-0400 Body temperature 98.2 [degF] Treatment Wstr Work Phone: [facility] 10-16-2024 09:52-0400 Body weight 88.6 kg Treatment Wstr Work Phone: [facility] 10-16-2024 09:52-0400 Diastolic blood pressure 77 mm[Hg] Treatment Wstr Work Phone: [facility] 10-16-2024 09:52-0400 Heart rate 87 /min Treatment Wstr Work Phone: [facility] 10-16-2024 09:52-0400 SaO2% (BldA) [Mass fraction] 96 % Treatment Wstr Work Phone: [facility] 10-16-2024 09:52-0400 Systolic blood pressure 152 mm[Hg] Treatment Wstr Work Phone: [facility] 10-13-2024 09:47-0400 Body mass index (BMI) [Ratio] 33.31 kg/m2 Sidney Joya MD Work Phone: [facility] 10-13-2024 09:47-0400 Body temperature 98.4 [degF] Sidney Joya MD Work Phone: [facility] 10-13-2024 09:47-0400 Body weight 88.18 kg Sidney Joya MD Work Phone: [facility] 10-13-2024 09:47-0400 Diastolic blood pressure 58 mm[Hg] Sidney Joya MD Work Phone: [facility] 10-13-2024 09:47-0400 Heart rate 79 /min Sidney Joya MD Work Phone: [facility] 10-13-2024 09:47-0400 SaO2% (BldA) [Mass fraction] 97 % Sidney Joya MD Work Phone: [facility] 10-13-2024 09:47-0400 Systolic blood pressure 121 mm[Hg] Sidney Joya MD Work Phone: [facility] 10-07-2024 09:52-0400 Body temperature 97.81 [degF] Treatment Wstr Work Phone: [facility] 10-07-2024 09:52-0400 Diastolic blood pressure 76 mm[Hg] Treatment Wstr Work Phone: [facility] 10-07-2024 09:52-0400 Heart rate 94 /min Treatment Wstr Work Phone: [facility] 10-07-2024 09:52-0400 SaO2% (BldA) [Mass fraction] 93 % Treatment Wstr Work Phone: [facility] 10-07-2024 09:52-0400 Systolic blood pressure 135 mm[Hg] Treatment Wstr Work Phone: [facility] 10-06-2024 09:50-0400 Body temperature 98.01 [degF] Sidney Joya MD Work Phone: [facility] 10-06-2024 09:50-0400 Diastolic blood pressure 80 mm[Hg] Sidney Joya MD Work Phone: [facility] 10-06-2024 09:50-0400 Heart rate 78 /min Sidney Joya MD Work Phone: [facility] 10-06-2024 09:50-0400 Respiratory rate 18 /min Sidney Joya MD Work Phone: [facility] 10-06-2024 09:50-0400 SaO2% (BldA) [Mass fraction] 99 % Sidney Joya MD Work Phone: [facility] 10-06-2024 09:50-0400 Systolic blood pressure 153 mm[Hg] Sidney Joya MD Work Phone: [facility] 10-05-2024 09:23-0400 Body height 162.7 cm Treatment Wstr Work Phone: [facility] 10-05-2024 09:23-0400 Body mass index (BMI) [Ratio] 33.33 kg/m2 Treatment Wstr Work Phone: [facility] 10-05-2024 09:23-0400 Body temperature 97 [degF] Treatment Wstr Work Phone: [facility] 10-05-2024 09:23-0400 Body weight 88.22 kg Treatment Wstr Work Phone: [facility] 10-05-2024 09:23-0400 Diastolic blood pressure 69 mm[Hg] Treatment Wstr Work Phone: [facility] 10-05-2024 09:23-0400 Heart rate 63 /min Treatment Wstr Work Phone: [facility] 10-05-2024 09:23-0400 SaO2% (BldA) [Mass fraction] 95 % Treatment Wstr Work Phone: [facility] 10-05-2024 09:23-0400 Systolic blood pressure 142 mm[Hg] Treatment Wstr Work Phone: [facility] 10-02-2024 10:00-0500 Body height 157.48 cm Julio ECHEVARRIA Work Phone: [facility] 10-02-2024 10:00-0500 Body mass index (BMI) [Ratio] 34.4 kg/m2 Julio Arriaga 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-C Work Phone: [facility] 10-02-2024 10:00-0500 Body temperature 97.5 [degF] Julio Arriaga 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-C Work Phone: [facility] 10-02-2024 10:00-0500 Body weight 85.27 kg Julio Arriaga 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-C Work Phone: [facility] 10-02-2024 10:00-0500 Diastolic blood pressure 75 mm[Hg] Julio Arriaga 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-C Work Phone: [facility] 10-02-2024 10:00-0500 Heart rate 72 /min Julio Arriaga 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-C Work Phone: [facility] 10-02-2024 10:00-0500 Respiratory rate 16 /min Julio Arriaga 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-C Work Phone: [facility] 10-02-2024 10:00-0500 SaO2% (BldA) [Mass fraction] 95 % Julio Arriaga 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-C Work Phone: [facility] 10-02-2024 10:00-0500 Systolic blood pressure 172 mm[Hg] Julio Arriaga 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-C Work Phone: [facility] 09-30-2024 09:21-0500 Body mass index (BMI) [Ratio] 33.98 kg/m2 Juan José Cheema MD Work Phone: [facility] 09-30-2024 09:21-0500 Body weight 88.09 kg Juan José Cheema MD Work Phone: [facility] 09-30-2024 09:21-0500 Diastolic blood pressure 68 mm[Hg] Juan José Cheema MD Work Phone: [facility] 09-30-2024 09:21-0500 Systolic blood pressure 122 mm[Hg] Juan José Cheema MD Work Phone: [facility] 09-25-2024 14:00-0500 Body temperature 98.1 [degF] Julio Arriaga 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-C Work Phone: [facility] 09-25-2024 14:00-0500 Diastolic blood pressure 69 mm[Hg] Julio Arriaga 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-C Work Phone: [facility] 09-25-2024 14:00-0500 Heart rate 95 /min Julio Arriaga 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-C Work Phone: [facility] 09-25-2024 14:00-0500 Respiratory rate 18 /min Julio Arriaga 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-C Work Phone: [facility] 09-25-2024 14:00-0500 SaO2% (BldA) [Mass fraction] 96 % Julio Arriaga 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-C Work Phone: [facility] 09-25-2024 14:00-0500 Systolic blood pressure 154 mm[Hg] Julio Arriaga 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-C Work Phone: [facility] 09-24-2024 18:46-0500 Body mass index (BMI) [Ratio] 33.3 kg/m2 Julio Arriaga 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-C Work Phone: [facility] 09-24-2024 18:46-0500 Body weight 85.27 kg Julio Arriaga 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-C Work Phone: [facility] 09-24-2024 18:22-0500 Body mass index (BMI) [Ratio] 33.76 kg/m2 Kimmy Dixon APRN.TOBACCO SAMPLER Work Phone: [facility] 09-24-2024 18:22-0500 Body temperature 98.2 [degF] Kimmy Dixon APRN.TOBACCO SAMPLER Work Phone: [facility] 09-24-2024 18:22-0500 Body weight 87.5 kg Kimmy Dixon APRN.TOBACCO SAMPLER Work Phone: [facility] 09-24-2024 18:22-0500 Diastolic blood pressure 72 mm[Hg] Kimmy Dixon MECHANICAL FIELD ENGINEER.TOBACCO SAMPLER Work Phone: [facility] 09-24-2024 18:22-0500 Heart rate 90 /min Kimmy Dixon MECHANICAL FIELD ENGINEER.TOBACCO SAMPLER Work Phone: [facility] 09-24-2024 18:22-0500 Respiratory rate 18 /min Kimmy Dixon MECHANICAL FIELD ENGINEER.TOBACCO SAMPLER Work Phone: [facility] 09-24-2024 18:22-0500 SaO2% (BldA) [Mass fraction] 97 % Kimmy Dixon MECHANICAL FIELD ENGINEER.TOBACCO SAMPLER Work Phone: [facility] 09-24-2024 18:22-0500 Systolic blood pressure 139 mm[Hg] Kimmy Dixon MECHANICAL FIELD ENGINEER.TOBACCO SAMPLER Work Phone: [facility] 09-17-2024 10:23-0500 Body mass index (BMI) [Ratio] 33.6 kg/m2 Sidney Joya MD Work Phone: [facility] 09-17-2024 10:23-0500 Body temperature 96.69 [degF] Sidney Joya MD Work Phone: [facility] 09-17-2024 10:23-0500 Body weight 87.09 kg Sidney Joya MD Work Phone: [facility] 09-17-2024 10:23-0500 Diastolic blood pressure 80 mm[Hg] Sidney Joya MD Work Phone: [facility] 09-17-2024 10:23-0500 Heart rate 86 /min Sidney Joya MD Work Phone: [facility] 09-17-2024 10:23-0500 Respiratory rate 17 /min Sidney Joya MD Work Phone: [facility] 09-17-2024 10:23-0500 SaO2% (BldA) [Mass fraction] 96 % Sidney Joya MD Work Phone: [facility] 09-17-2024 10:23-0500 Systolic blood pressure 122 mm[Hg] Sidney Joya MD Work Phone: [facility] 09-15-2024 15:15-0500 Body height 161 cm Josh Ashi DO Work Phone: [facility] 09-15-2024 15:15-0500 Body mass index (BMI) [Ratio] 33.86 kg/m2 Josh Mihiri DO Work Phone: [facility] 09-15-2024 15:15-0500 Body temperature 98.2 [degF] Josh Masci DO Work Phone: [facility] 09-15-2024 15:15-0500 Body weight 87.77 kg Josh Ashi DO Work Phone: [facility] 09-15-2024 15:15-0500 Diastolic blood pressure 82 mm[Hg] Josh Mihiri DO Work Phone: [facility] 09-15-2024 15:15-0500 Heart rate 82 /min Josh Mihiri DO Work Phone: [facility] 09-15-2024 15:15-0500 SaO2% (BldA) [Mass fraction] 95 % Josh Mihiri DO Work Phone: [facility] 09-15-2024 15:15-0500 Systolic blood pressure 149 mm[Hg] Josh Mihiri DO Work Phone: [facility] 09-03-2024 16:32-0500 Body temperature 98.2 [degF] Julio Arriaga 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-C Work Phone: [facility] 09-03-2024 16:32-0500 Diastolic blood pressure 54 mm[Hg] Julio Arriaga 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-C Work Phone: [facility] 09-03-2024 16:32-0500 Heart rate 82 /min Julio Arriaga 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-C Work Phone: [facility] 09-03-2024 16:32-0500 Respiratory rate 19 /min Julio Arriaga 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-C Work Phone: [facility] 09-03-2024 16:32-0500 SaO2% (BldA) [Mass fraction] 93 % Julio Arriaga 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-C Work Phone: [facility] 09-03-2024 16:32-0500 Systolic blood pressure 119 mm[Hg] Julio Arriaga 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-C Work Phone: [facility] 09-03-2024 16:08-0500 Inhaled oxygen flow rate 3 L/min Julio Arriaga 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-C Work Phone: [facility] 09-03-2024 14:00-0500 Body weight 95.1 kg Julio Arriaga 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-C Work Phone: [facility] 09-02-2024 18:46-0500 Body mass index (BMI) [Ratio] 37.1 kg/m2 Julio Arriaga 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-C Work Phone: [facility] 09-02-2024 09:58-0500 Body mass index (BMI) [Ratio] 34.77 kg/m2 Kimmy Dixon APRN.TOBACCO SAMPLER Work Phone: [facility] 09-02-2024 09:58-0500 Body temperature 97 [degF] Kimmy Dixon APRN.TOBACCO SAMPLER Work Phone: [facility] 09-02-2024 09:58-0500 Body weight 89 kg Kimmy Dixon APRN.TOBACCO SAMPLER Work Phone: [facility] 09-02-2024 09:58-0500 Diastolic blood pressure 72 mm[Hg] Kimmy Dixon APRN.TOBACCO SAMPLER Work Phone: [facility] 09-02-2024 09:58-0500 Heart rate 87 /min Kimmy Dixon APRN.TOBACCO SAMPLER Work Phone: [facility] 09-02-2024 09:58-0500 Respiratory rate 18 /min Kimmy Dixon APRN.TOBACCO SAMPLER Work Phone: [facility] 09-02-2024 09:58-0500 SaO2% (BldA) [Mass fraction] 98 % Kimmy Dixon APRN.TOBACCO SAMPLER Work Phone: [facility] 09-02-2024 09:58-0500 Systolic blood pressure 122 mm[Hg] Kimmy Dixon APRN.TOBACCO SAMPLER Work Phone: [facility] 07-02-2024 08:00-0500 Body temperature 97.5 [degF] Treatment Wstr Work Phone: [facility] 07-02-2024 08:00-0500 Diastolic blood pressure 68 mm[Hg] Treatment Wstr Work Phone: [facility] 07-02-2024 08:00-0500 Heart rate 79 /min Treatment Wstr Work Phone: [facility] 07-02-2024 08:00-0500 Respiratory rate 20 /min Treatment Wstr Work Phone: [facility] 07-02-2024 08:00-0500 SaO2% (BldA) [Mass fraction] 97 % Treatment Wstr Work Phone: [facility] 07-02-2024 08:00-0500 Systolic blood pressure 176 mm[Hg] Treatment Wstr Work Phone: [facility] 06-24-2024 09:12-0500 Body temperature 97.81 [degF] Treatment Wstr Work Phone: [facility] 06-24-2024 09:12-0500 Diastolic blood pressure 87 mm[Hg] Treatment Wstr Work Phone: [facility] 06-24-2024 09:12-0500 Heart rate 86 /min Treatment Wstr Work Phone: [facility] 06-24-2024 09:12-0500 Respiratory rate 20 /min Treatment Wstr Work Phone: [facility] 06-24-2024 09:12-0500 SaO2% (BldA) [Mass fraction] 97 % Treatment Wstr Work Phone: [facility] 06-24-2024 09:12-0500 Systolic blood pressure 171 mm[Hg] Treatment Wstr Work Phone: [facility] 06-18-2024 09:57-0500 Body temperature 97.39 [degF] Treatment Wstr Work Phone: [facility] 06-18-2024 09:57-0500 Heart rate 86 /min Treatment Wstr Work Phone: [facility] 06-18-2024 09:57-0500 SaO2% (BldA) [Mass fraction] 96 % Treatment Wstr Work Phone: [facility] 06-15-2024 13:42-0500 Body height 160 cm Josh Masci DO Work Phone: [facility] 06-15-2024 13:42-0500 Body mass index (BMI) [Ratio] 35.17 kg/m2 Josh Masci DO Work Phone: [facility] 06-15-2024 13:42-0500 Body temperature 97.3 [degF] Josh Masci DO Work Phone: [facility] 06-15-2024 13:42-0500 Body weight 90.04 kg Josh Masci DO Work Phone: [facility] 06-15-2024 13:42-0500 Diastolic blood pressure 72 mm[Hg] Josh Masci DO Work Phone: [facility] 06-15-2024 13:42-0500 Heart rate 77 /min Josh Masci DO Work Phone: [facility] 06-15-2024 13:42-0500 SaO2% (BldA) [Mass fraction] 96 % Josh Masci DO Work Phone: [facility] 06-15-2024 13:42-0500 Systolic blood pressure 118 mm[Hg] Josh Masci DO Work Phone: [facility] 05-21-2024 13:18-0400 Body mass index (BMI) [Ratio] 35 kg/m2 Chair Bath [facility] 05-21-2024 13:18-0400 Body temperature 97.2 [degF] Chair Bath [facility] 05-21-2024 13:18-0400 Body weight 89.63 kg Chair Bath [facility] 05-21-2024 13:18-0400 Diastolic blood pressure 74 mm[Hg] [facility] 05-21-2024 13:18-0400 Heart rate 86 /min [facility] 05-21-2024 13:18-0400 Respiratory rate 20 /min [facility] 05-21-2024 13:18-0400 SaO2% (BldA) [Mass fraction] 96 % [facility] 05-21-2024 13:18-0400 Systolic blood pressure 146 mm[Hg] [facility] 04-01-2024 14:37-0400 Body mass index (BMI) [Ratio] 34.58 kg/m2 [facility] 04-01-2024 14:37-0400 Body temperature 98.4 [degF] [facility] 04-01-2024 14:37-0400 Body weight 88.54 kg [facility] 04-01-2024 14:37-0400 Diastolic blood pressure 60 mm[Hg] [facility] 04-01-2024 14:37-0400 Heart rate 71 /min [facility] 04-01-2024 14:37-0400 Respiratory rate 18 /min [facility] 04-01-2024 14:37-0400 SaO2% (BldA) [Mass fraction] 96 % [facility] 04-01-2024 14:37-0400 Systolic blood pressure 149 mm[Hg] [facility] 02-26-2024 10:01-0400 Body mass index (BMI) [Ratio] 33.55 kg/m2 [facility] 02-26-2024 10:01-0400 Body temperature 97.11 [degF] [facility] 02-26-2024 10:01-0400 Body weight 85.91 kg [facility] 02-26-2024 10:01-0400 Diastolic blood pressure 80 mm[Hg] [facility] 02-26-2024 10:01-0400 Heart rate 77 /min [facility] 02-26-2024 10:01-0400 Respiratory rate 16 /min [facility] 02-26-2024 10:01-0400 Systolic blood pressure 165 mm[Hg] [facility] 01-29-2024 09:36-0400 Body mass index (BMI) [Ratio] 34.05 kg/m2 [facility] 01-29-2024 09:36-0400 Body temperature 97.9 [degF] [facility] 01-29-2024 09:36-0400 Body weight 87.18 kg [facility] 01-29-2024 09:36-0400 Diastolic blood pressure 66 mm[Hg] [facility] 01-29-2024 09:36-0400 Heart rate 74 /min [facility] 01-29-2024 09:36-0400 Respiratory rate 18 /min [facility] 01-29-2024 09:36-0400 SaO2% (BldA) [Mass fraction] 97 % [facility] 01-29-2024 09:36-0400 Systolic blood pressure 154 mm[Hg] [facility] 12-31-2023 10:28-0400 Body mass index (BMI) [Ratio] 34.93 kg/m2 [facility] 12-31-2023 10:28-0400 Body temperature 98.1 [degF] [facility] 12-31-2023 10:28-0400 Body weight 89.45 kg [facility] 12-31-2023 10:28-0400 Diastolic blood pressure 61 mm[Hg] [facility] 12-31-2023 10:28-0400 Heart rate 79 /min [facility] 12-31-2023 10:28-0400 Respiratory rate 18 /min [facility] 12-31-2023 10:28-0400 SaO2% (BldA) [Mass fraction] 96 % [facility] 12-31-2023 10:28-0400 Systolic blood pressure 137 mm[Hg] [facility] 11-21-2023 10:58-0400 Body height 160 cm Jennifer Arias MD Work Phone: [facility] 11-21-2023 10:58-0400 Body mass index (BMI) [Ratio] 35.43 kg/m2 Jennifer Arias MD Work Phone: [facility] 11-21-2023 10:58-0400 Body temperature 98.01 [degF] Jennifer Arias MD Work Phone: [facility] 11-21-2023 10:58-0400 Body weight 90.72 kg Jennifer Arias MD Work Phone: [facility] 11-21-2023 10:58-0400 Diastolic blood pressure 82 mm[Hg] Jennifer Arias MD Work Phone: [facility] 11-21-2023 10:58-0400 Heart rate 81 /min Jennifer Arias MD Work Phone: [facility] 11-21-2023 10:58-0400 Respiratory rate 10 /min Jennifer Arias MD Work Phone: [facility] 11-21-2023 10:58-0400 Systolic blood pressure 147 mm[Hg] Jennifer Arias MD Work Phone: [facility] 11-20-2023 10:25-0400 Body temperature 98.2 [degF] [facility] 11-20-2023 10:25-0400 Diastolic blood pressure 65 mm[Hg] [facility] 11-20-2023 10:25-0400 Heart rate 72 /min [facility] 11-20-2023 10:25-0400 Respiratory rate 18 /min [facility] 11-20-2023 10:25-0400 SaO2% (BldA) [Mass fraction] 96 % [facility] 11-20-2023 10:25-0400 Systolic blood pressure 138 mm[Hg] [facility] 10-19-2023 20:04-0400 Body temperature 98.4 [degF] SINAI Arriaga 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 Work Phone: [facility] 10-19-2023 20:04-0400 Diastolic blood pressure 59 mm[Hg] SINAI Arriaga 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 Work Phone: [facility] 10-19-2023 20:04-0400 Heart rate 75 /min 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-Marga Arriaga 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 Work Phone: [facility] 10-19-2023 20:04-0400 Respiratory rate 20 /min 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-C Julio Arriaga 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 Work Phone: [facility] 10-19-2023 20:04-0400 SaO2% (BldA) [Mass fraction] 96 % 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-Marga Arriaga 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 Work Phone: [facility] 10-19-2023 20:04-0400 Systolic blood pressure 148 mm[Hg] 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-C Julio Arriaga 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 Work Phone: [facility] 10-19-2023 15:17-0400 Body height 160.02 cm 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Rowan Arriaga 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 Work Phone: [facility] 10-19-2023 15:17-0400 Body mass index (BMI) [Ratio] 36.1 kg/m2 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-Marga Arriaga 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 Work Phone: [facility] 10-19-2023 15:17-0400 Body weight 92.4 kg 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-C Julio Arriaga 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 Work Phone: [facility] 09-26-2023 10:27-0500 Body temperature 97.9 [degF] [facility] 09-26-2023 10:27-0500 Body weight 89.36 kg [facility] 09-26-2023 10:27-0500 Diastolic blood pressure 51 mm[Hg] [facility] 09-26-2023 10:27-0500 Heart rate 78 /min [facility] 09-26-2023 10:27-0500 Respiratory rate 18 /min [facility] 09-26-2023 10:27-0500 SaO2% (BldA) [Mass fraction] 98 % [facility] 09-26-2023 10:27-0500 Systolic blood pressure 151 mm[Hg] [facility] 08-30-2023 13:14-0500 Body temperature 97.5 [degF] [facility] 08-30-2023 13:14-0500 Body weight 89.72 kg [facility] 08-30-2023 13:14-0500 Diastolic blood pressure 74 mm[Hg] [facility] 08-30-2023 13:14-0500 Heart rate 79 /min [facility] 08-30-2023 13:14-0500 Respiratory rate 16 /min [facility] 08-30-2023 13:14-0500 SaO2% (BldA) [Mass fraction] 98 % [facility] 08-30-2023 13:14-0500 Systolic blood pressure 155 mm[Hg] [facility] 07-25-2023 13:54-0500 Diastolic blood pressure 66 mm[Hg] SINAI Arriaga 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 Work Phone: [facility] 07-25-2023 13:54-0500 Heart rate 84 /min 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-Marga Arriaga 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 Work Phone: [facility] 07-25-2023 13:54-0500 Respiratory rate 16 /min 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-Marga Arriaga 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 Work Phone: [facility] 07-25-2023 13:54-0500 SaO2% (BldA) [Mass fraction] 98 % 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Rowan Arriaga 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 Work Phone: [facility] 07-25-2023 13:54-0500 Systolic blood pressure 145 mm[Hg] SINAI Arriaga 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 Work Phone: [facility] 07-25-2023 12:14-0500 Body height 160.02 cm 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Rowan Arriaga 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 Work Phone: [facility] 07-25-2023 12:14-0500 Body mass index (BMI) [Ratio] 32.8 kg/m2 SINAI Arriaga 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 Work Phone: [facility] 07-25-2023 12:14-0500 Body weight 83.91 kg 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-Marga Arriaga NP Work Phone: [facility] 07-03-2023 11:35-0500 Body weight 85.19 kg Chair Bath Work Phone: [facility] 05-27-2023 13:03-0400 Body temperature 98.29 [degF] Chair Bath Work Phone: [facility] 05-27-2023 13:03-0400 Body weight 83.92 kg Chair Bath Work Phone: [facility] 05-27-2023 13:03-0400 Diastolic blood pressure 73 mm[Hg] Chair Bath Work Phone: [facility] 05-27-2023 13:03-0400 Heart rate 80 /min Chair Bath Work Phone: [facility] 05-27-2023 13:03-0400 Respiratory rate 18 /min Chair Bath Work Phone: [facility] 05-27-2023 13:03-0400 Systolic blood pressure 156 mm[Hg] Chair Bath Work Phone: [facility] 05-21-2023 11:05-0400 Body height 160 cm Sarah Barile PA-C Work Phone: [facility] 05-21-2023 11:05-0400 Body temperature 96.69 [degF] Sarah Barile PA-C Work Phone: [facility] 05-21-2023 11:05-0400 Body weight 84.55 kg Sarah Barile PA-C Work Phone: [facility] 05-21-2023 11:05-0400 Diastolic blood pressure 63 mm[Hg] Sarah Barile PA-C Work Phone: [facility] 05-21-2023 11:05-0400 Heart rate 81 /min Sarah Barile PA-C Work Phone: [facility] 05-21-2023 11:05-0400 SaO2% (BldA) [Mass fraction] 92 % Sarah Barile PA-C Work Phone: [facility] 05-21-2023 11:05-0400 Systolic blood pressure 140 mm[Hg] Sarah Pearson PA-C Work Phone: [facility] 04-25-2023 15:21-0400 Diastolic blood pressure 75 mm[Hg] Bed Bath Work Phone: [facility] 04-25-2023 15:21-0400 Heart rate 68 /min Bed Bath Work Phone: [facility] 04-25-2023 15:21-0400 Systolic blood pressure 127 mm[Hg] Bed Bath Work Phone: [facility] 04-25-2023 15:19-0400 Body weight 83.37 kg Bed Bath Work Phone: [facility] 04-25-2023 12:22-0400 Body height 161.3 cm Bed Bath Work Phone: [facility] 04-25-2023 10:47-0400 Body weight 83.37 kg Bed Bath Work Phone: [facility] 01-24-2023 10:01-0400 SaO2% (BldA) [Mass fraction] 96 % MD ARCHER [facility] 01-24-2023 08:57-0400 Body temperature 98.4 [degF] MD GIANNI CERVANTES [facility] 01-24-2023 08:57-0400 Diastolic blood pressure 41 mm[Hg] MD GIANNI CERVANTES [facility] 01-24-2023 08:57-0400 Heart rate 84 /min MD GIANNI CERVANTES [facility] 01-24-2023 08:57-0400 Respiratory rate 18 /min MD GIANNI CERVANTES [facility] 01-24-2023 08:57-0400 Systolic blood pressure 125 mm[Hg] MD GIANNI CERVANTES [facility] 01-23-2023 12:51-0400 Body height 159.99 cm MD GIANNI CERVANTES [facility] 01-23-2023 12:51-0400 Body mass index (BMI) [Ratio] 34.3 kg/m2 MD [facility] 01-23-2023 12:51-0400 Body weight 88 kg [facility] 01-23-2023 11:15-0400 Inhaled oxygen flow rate 4 L/min [facility] 11-21-2022 12:57-0400 Body height 160.[address] Selene Pierre Work Phone: 1(750)528-329646 [place] [address] 11-21-2022 12:57-0400 Body mass index (BMI) [Ratio] 34.3 kg/m2 Dr. Selene Pierre Work Phone: 3(087)409-205546 [place] [address] 11-21-2022 12:57-0400 Body weight 87.[address] Selene Pierre Work Phone: 3(844)591-791746 [place] [address] 11-21-2022 12:57-0400 Diastolic blood pressure 79 mm[Hg] Dr. Selene Pierre Work Phone: 5(404)201-008346 [place] [address] 11-21-2022 12:57-0400 Heart rate 82 /min Dr. Selene Pierre Work Phone: 1(373)996-874046 [place] [address] 11-21-2022 12:57-0400 SaO2% (BldA) [Mass fraction] 92 % Dr. Selene Pirere Work Phone: 0(496)796-802646 [place] [address] 11-21-2022 12:57-0400 Systolic blood pressure 160 mm[Hg] Dr. Selene Pierre Work Phone: 0(378)207-321046 [place] [address] 11-06-2022 15:47-0400 Body temperature 97.3 [degF] Dr. Selene Pierre Work Phone: 8(835)795-003846 [place] [address] 11-06-2022 15:47-0400 Diastolic blood pressure 65 mm[Hg] Dr. Selene Pierre Work Phone: 3(754)992-470646 [place] [address] 11-06-2022 15:47-0400 Heart rate 70 /min Dr. Selene Pierre Work Phone: 8(530)260-390446 [place] [address] 11-06-2022 15:47-0400 Respiratory rate 16 /min Dr. Selene Pierre Work Phone: [facility] 11-06-2022 15:47-0400 SaO2% (BldA) [Mass fraction] 100 % Dr. Selene Pierre Work Phone: [facility] 11-06-2022 15:47-0400 Systolic blood pressure 148 mm[Hg] Dr. Selene Pierre Work Phone: [facility] 11-06-2022 13:10-0400 Body height 160.[address] Selene Pierre Work Phone: [facility] 11-06-2022 13:10-0400 Body mass index (BMI) [Ratio] 32.8 kg/m2 Dr. Selene Pierre Work Phone: [facility] 11-06-2022 13:10-0400 Body weight [address] Selene Pierre Work Phone: [facility] 11-02-2022 10:26-0400 Body temperature 97.2 [degF] [facility] 11-02-2022 10:26-0400 Body weight 86.91 kg [facility] 11-02-2022 10:26-0400 Diastolic blood pressure 67 mm[Hg] [facility] 11-02-2022 10:26-0400 Heart rate 75 /min [facility] 11-02-2022 10:26-0400 SaO2% (BldA) [Mass fraction] 97 % [facility] 11-02-2022 10:26-0400 Systolic blood pressure 134 mm[Hg] [facility] 10-18-2022 11:56-0400 Body height 161.3 cm Jennifer Arias MD Work Phone: [facility] 10-18-2022 11:56-0400 Body temperature 96.01 [degF] Jennifer Arias MD Work Phone: [facility] 10-18-2022 11:56-0400 Body weight 87.54 kg Jennifer Arias MD Work Phone: [facility] 10-18-2022 11:56-0400 Diastolic blood pressure 50 mm[Hg] Jennifer Arias MD Work Phone: [facility] 10-18-2022 11:56-0400 Heart rate 71 /min Jennifer Arias MD Work Phone: [facility] 10-18-2022 11:56-0400 SaO2% (BldA) [Mass fraction] 96 % Jennifer Arias MD Work Phone: [facility] 10-18-2022 11:56-0400 Systolic blood pressure 141 mm[Hg] Jennifer Arias MD Work Phone: [facility] 09-19-2022 10:25-0500 Body height 160.[address] Selene Pierre Work Phone: [facility] 09-19-2022 10:25-0500 Body mass index (BMI) [Ratio] 34.3 kg/m2 Dr. Selene Pierre Work Phone: [facility] 09-19-2022 10:25-0500 Body weight 87.[address] Selene Pierre Work Phone: [facility] 09-19-2022 10:25-0500 Diastolic blood pressure 73 mm[Hg] Dr. Selene Pierre Work Phone: [facility] 09-19-2022 10:25-0500 Heart rate 76 /min Dr. Selene Pierre Work Phone: [facility] 09-19-2022 10:25-0500 SaO2% (BldA) [Mass fraction] 96 % Dr. Selene Pierre Work Phone: [facility] 09-19-2022 10:25-0500 Systolic blood pressure 114 mm[Hg] Dr. Selene Pierre Work Phone: [facility] 09-12-2022 16:21-0500 Body temperature 97.1 [degF] Dr. Selene Pierre Work Phone: [facility] 09-12-2022 16:21-0500 Diastolic blood pressure 74 mm[Hg] Dr. Selene Pierre Work Phone: [facility] 09-12-2022 16:21-0500 Heart rate 80 /min Dr. Selene Pierre Work Phone: [facility] 09-12-2022 16:21-0500 Respiratory rate 14 /min Dr. Selene Pierre Work Phone: [facility] 09-12-2022 16:21-0500 SaO2% (BldA) [Mass fraction] 95 % Dr. Selene Pierre Work Phone: [facility] 09-12-2022 16:21-0500 Systolic blood pressure 130 mm[Hg] Dr. Selene Pierre Work Phone: [facility] 08-15-2022 10:24-0500 Body height 160.[address] Selene Pierre Work Phone: [facility] 08-02-2022 10:50-0500 Heart rate 68 /min Leilani Colmenares MECHANICAL FIELD ENGINEER.TOBACCO SAMPLER Work Phone: [facility] 08-02-2022 10:50-0500 Respiratory rate 16 /min Leilani Colmenares MECHANICAL FIELD ENGINEER.TOBACCO SAMPLER Work Phone: [facility] 08-02-2022 10:50-0500 SaO2% (BldA) [Mass fraction] 95 % Leilani Colmenares MECHANICAL FIELD ENGINEER.TOBACCO SAMPLER Work Phone: [facility] 07-17-2022 11:32-0500 Body temperature 97.3 [degF] Chair Bath Work Phone: [facility] 07-17-2022 11:32-0500 Body weight 90.9 kg Chair Bath Work Phone: [facility] 07-17-2022 11:32-0500 Diastolic blood pressure 82 mm[Hg] Chair Bath Work Phone: [facility] 07-17-2022 11:32-0500 Heart rate 75 /min Chair Bath Work Phone: [facility] 07-17-2022 11:32-0500 SaO2% (BldA) [Mass fraction] 97 % Chair Bath Work Phone: [facility] 07-17-2022 11:32-0500 Systolic blood pressure 174 mm[Hg] Chair Bath Work Phone: [facility] 07-13-2022 09:06-0500 Body temperature 97.9 [degF] Dr. Selene Pierre Work Phone: [facility] 07-13-2022 09:06-0500 Diastolic blood pressure 78 mm[Hg] Dr. Selene Pierre Work Phone: [facility] 07-13-2022 09:06-0500 Heart rate 76 /min Dr. Selene Pierre Work Phone: [facility] 07-13-2022 09:06-0500 Respiratory rate 17 /min Dr. Selene Pierre Work Phone: [facility] 07-13-2022 09:06-0500 SaO2% (BldA) [Mass fraction] 94 % Dr. Selene Pierre Work Phone: [facility] 07-13-2022 09:06-0500 Systolic blood pressure 130 mm[Hg] Dr. Selene Pierre Work Phone: [facility] 06-26-2022 13:48-0500 Body height 160 cm Sarah Barile PA-C Work Phone: [facility] 06-26-2022 13:48-0500 Body temperature 97.81 [degF] Sarah Barile PA-C Work Phone: [facility] 06-26-2022 13:48-0500 Body weight 91.63 kg Sarah Barile PA-C Work Phone: [facility] 06-26-2022 13:48-0500 Diastolic blood pressure 78 mm[Hg] Sarah Barile PA-C Work Phone: [facility] 06-26-2022 13:48-0500 Heart rate 96 /min Sarah Barile PA-C Work Phone: [facility] 06-26-2022 13:48-0500 Respiratory rate 16 /min Sarah Barile PA-C Work Phone: [facility] 06-26-2022 13:48-0500 Systolic blood pressure 140 mm[Hg] Sarah Barile PA-C Work Phone: [facility] 05-16-2022 09:20-0400 Body temperature 97.59 [degF] Sarah Friaser MECHANICAL FIELD ENGINEER.TOBACCO SAMPLER Work Phone: [facility] 05-16-2022 09:20-0400 Body weight 93.89 kg Sarah De Luna MECHANICAL FIELD ENGINEER.TOBACCO SAMPLER Work Phone: [facility] 05-16-2022 09:20-0400 Diastolic blood pressure 72 mm[Hg] Sarah Friaser MECHANICAL FIELD ENGINEER.TOBACCO SAMPLER Work Phone: [facility] 05-16-2022 09:20-0400 Heart rate 98 /min Sarah De Luna MECHANICAL FIELD ENGINEER.TOBACCO SAMPLER Work Phone: [facility] 05-16-2022 09:20-0400 Respiratory rate 18 /min Sarah Friaser MECHANICAL FIELD ENGINEER.TOBACCO SAMPLER Work Phone: [facility] 05-16-2022 09:20-0400 SaO2% (BldA) [Mass fraction] 99 % Sarah De Luna MECHANICAL FIELD ENGINEER.TOBACCO SAMPLER Work Phone: [facility] 05-16-2022 09:20-0400 Systolic blood pressure 138 mm[Hg] Sarah De Luna MECHANICAL FIELD ENGINEER.TOBACCO SAMPLER Work Phone: [facility] 05-03-2022 11:33-0400 Body weight 96.44 kg Bed Bath Work Phone: [facility] 04-05-2022 13:13-0400 Body temperature 97.9 [degF] Bed Bath Work Phone: [facility] 04-05-2022 13:13-0400 Diastolic blood pressure 71 mm[Hg] Bed Bath Work Phone: [facility] 04-05-2022 13:13-0400 Heart rate 74 /min Bed Bath Work Phone: [facility] 04-05-2022 13:13-0400 Respiratory rate 19 /min Bed Bath Work Phone: [facility] 04-05-2022 13:13-0400 Systolic blood pressure 141 mm[Hg] Bed Bath Work Phone: [facility] 03-05-2022 12:58-0400 Body temperature 97.9 [degF] Chair Bath [facility] 03-05-2022 12:58-0400 Body weight 99.16 kg Chair Bath [facility] 03-05-2022 12:58-0400 Diastolic blood pressure 56 mm[Hg] Chair Bath [facility] 03-05-2022 12:58-0400 Heart rate 87 /min Chair Bath [facility] 03-05-2022 12:58-0400 Respiratory rate 20 /min Chair Bath [facility] 03-05-2022 12:58-0400 Systolic blood pressure 142 mm[Hg] Chair Bath [facility] 02-01-2022 09:20-0400 Heart rate 60 /min Leilani Colmenares MECHANICAL FIELD ENGINEER.TOBACCO SAMPLER Work Phone: [facility] 02-01-2022 09:20-0400 Respiratory rate 16 /min Leilani Colmenares MECHANICAL FIELD ENGINEER.TOBACCO SAMPLER Work Phone: [facility] 02-01-2022 09:20-0400 SaO2% (BldA) [Mass fraction] 95 % Leilani Colmenares MECHANICAL FIELD ENGINEER.TOBACCO SAMPLER Work Phone: [facility] 12-28-2021 11:07-0400 Body temperature 97.5 [degF] Chair Bath Work Phone: [facility] 12-28-2021 11:07-0400 Body weight 96.16 kg Chair Bath Work Phone: [facility] 12-28-2021 11:07-0400 Diastolic blood pressure 79 mm[Hg] Chair Bath Work Phone: [facility] 12-28-2021 11:07-0400 Heart rate 75 /min Chair Bath Work Phone: [facility] 12-28-2021 11:07-0400 Respiratory rate 18 /min Chair Bath Work Phone: [facility] 12-28-2021 11:07-0400 Systolic blood pressure 156 mm[Hg] Chair Bath Work Phone: [facility] 11-30-2021 10:16-0400 Body temperature 97.5 [degF] Chair Bath [facility] 11-30-2021 10:16-0400 Body weight 95.94 kg Chair Bath [facility] 11-30-2021 10:16-0400 Diastolic blood pressure 51 mm[Hg] Chair Bath [facility] 11-30-2021 10:16-0400 Heart rate 90 /min Chair Bath [facility] 11-30-2021 10:16-0400 Respiratory rate 18 /min Chair Bath [facility] 11-30-2021 10:16-0400 Systolic blood pressure 140 mm[Hg] Chair Bath [facility] 11-02-2021 10:54-0400 Body temperature 97.5 [degF] Chair Bath Work Phone: [facility] 11-02-2021 10:54-0400 Body weight 95.62 kg Chair Bath Work Phone: [facility] 11-02-2021 10:54-0400 Diastolic blood pressure 79 mm[Hg] Chair Bath Work Phone: [facility] 11-02-2021 10:54-0400 Heart rate 86 /min Chair Bath Work Phone: [facility] 11-02-2021 10:54-0400 Respiratory rate 18 /min Chair Bath Work Phone: [facility] 11-02-2021 10:54-0400 Systolic blood pressure 126 mm[Hg] Chair Bath Work Phone: [facility] 09-01-2021 16:22-0500 Respiratory rate 18 /min SONG ALMEIDA MD [facility] 09-01-2021 15:04-0500 Heart rate 106 /min SONG ALMEIDA MD [facility] 09-01-2021 15:04-0500 Respiratory rate 20 /min SONG ALMEIDA MD [facility] 09-01-2021 10:11-0500 Heart rate 90 /min SONG ALMEIDA MD [facility] 09-01-2021 10:11-0500 Respiratory rate 18 /min SONG ALMEIDA MD [facility] 09-01-2021 08:06-0500 Body temperature 97.88 [degF] SONG ALMEIDA MD [facility] 09-01-2021 08:06-0500 Diastolic blood pressure 60 mm[Hg] SONG ALMEIDA MD [facility] 09-01-2021 08:06-0500 Heart rate 87 /min SONG ALMEIDA MD [facility] 09-01-2021 08:06-0500 Mean blood pressure 81 mm[Hg] SONG ALMEIDA MD [facility] 09-01-2021 08:06-0500 Reason For Taking VItal Signs SONG ALMEIDA MD [facility] 09-01-2021 08:06-0500 Systolic blood pressure 124 mm[Hg] SONG ALMEIDA MD [facility] 09-01-2021 00:09-0500 Body temperature 98.06 [degF] SONG ALMEIDA MD [facility] 09-01-2021 00:09-0500 Diastolic blood pressure 62 mm[Hg] SONG ALMEIDA MD [facility] 09-01-2021 00:09-0500 Reason For Taking VItal Signs SONG ALMEIDA MD [facility] 09-01-2021 00:09-0500 Systolic blood pressure 122 mm[Hg] SONG ALMEIDA MD [facility] 08-31-2021 20:05-0500 Body temperature 98.24 [degF] SONG ALMEIDA MD [facility] 08-31-2021 20:05-0500 Diastolic blood pressure 59 mm[Hg] SONG ALMEIDA MD [facility] 08-31-2021 20:05-0500 Systolic blood pressure 115 mm[Hg] SONG ALMEIDA MD [facility] 08-31-2021 04:04-0500 Heart rate 90 /min SONG ALMEIDA MD [facility] 08-30-2021 19:04-0500 Heart rate 90 /min SONG ALMEIDA MD [facility] 08-30-2021 15:55-0500 Heart rate 90 /min SONG ALMEIDA MD [facility] 08-29-2021 18:28-0500 Body temperature 97.52 [degF] SONG ALMEIDA MD [facility] 08-29-2021 18:28-0500 Diastolic Blood Pressure NBP 65 1 SONG ALMEIDA MD [facility] 08-29-2021 18:28-0500 Mean blood pressure 90 mm[Hg] SONG ALMEIDA MD [facility] 08-29-2021 18:28-0500 Systolic Blood Pressure NBP 155 1 SONG ALMEIDA MD [facility] 08-29-2021 18:15-0500 Diastolic Blood Pressure NBP 59 1 SONG ALMEIDA MD [facility] 08-29-2021 18:15-0500 Mean blood pressure 84 mm[Hg] SONG ALMEIDA MD [facility] 08-29-2021 18:15-0500 Systolic Blood Pressure NBP 154 1 SONG ALMEIDA MD [facility] 08-29-2021 18:00-0500 Diastolic Blood Pressure NBP 64 1 SONG ALMEIDA MD [facility] 08-29-2021 18:00-0500 Systolic Blood Pressure NBP 143 1 SONG ALMEIDA MD [facility] 08-29-2021 17:33-0500 Body temperature 97.7 [degF] SONG ALMEIDA MD [facility] 08-29-2021 17:20-0500 Body temperature 97.66 [degF] SONG ALMEIDA MD [facility] 08-29-2021 17:15-0500 Body temperature 97.63 [degF] SONG ALMEIDA MD [facility] 08-29-2021 17:10-0500 Body temperature 97.57 [degF] SONG ALMEIDA MD [facility] 08-29-2021 02:41-0500 Body weight 37.89 kg/m2 SONG ALMEIDA MD [facility] 08-29-2021 02:04-0500 Body height 160 cm SONG ALMEIDA MD [facility] 08-29-2021 02:04-0500 Body weight 97 kg SONG ALMEIDA MD [facility] 08-29-2021 02:04-0500 Body weight 37.89 kg/m2 SONG ALMEIDA MD [facility] Encounters Encounter Date Encounter Type Care Provider Facility Start: 03-02-2025 ambulatory Kenya Garcia Facility :[facility] Start: 02-28-2025 ambulatory Julio Arriaga Facility :[facility] Start: 02-18-2025 End: 02-18-2025 ambulatory Treatment Rm 18 [facility] Work Phone: Hematology/Oncology Comment on above: Other osteoporosis w ithout current pathological fracture (Primary Dx); Rheumatoid arthritis involving multiple sites with positive rheumatoid factor (HCC) Start: 02-17-2025 End: 02-17-2025 Telephone encounter Josh Bennett DO Work Phone: Hematology/Oncology Comment on above: Appointment Start: 02-15-2025 End: 02-15-2025 Telephone encounter Delvin Ron APRN.TOBACCO SAMPLER Work Phone: Hematology/Oncology Comment on above: Patient Question Start: 02-09-2025 End: 02-10-2025 Telephone encounter Annonamarcie Ron TOBACCO SAMPLER Work Phone: Hematology/Oncology Start: 02-09-2025 End: 02-09-[address] Kenya Garcia MD -[facility] Work Phone: Start: 02-09-2025 End: 02-09-2025 ambulatory Julio Arriaga NP-C Work Phone: -[facility] Start: 02-05-2025 End: 02-05-2025 ambulatory Treatment Rm 16 [facility] Work Phone: Hematology/Oncology Comment on above: Other osteoporosis w ithout current pathological fracture (Primary Dx); Rheumatoid arthritis involving multiple sites with positive rheumatoid factor (HCC) Start: 02-03-2025 End: 02-03-2025 Refill Jennifer Arias MD Work Phone: [facility]umatology and Arthritis Comment on above: Refill Request Start: 02-02-2025 End: 02-02-2025 Patient encounter procedure Michelle ECHEVARRIA -[facility] Work Phone: Start: 02-02-2025 End: 02-02-2025 ambulatory Julio Arriaga NP-C Work Phone: -[facility] Start: 02-01-2025 End: 02-01-2025 Subsequent hospital visit by physician Mri [employer] [facility] (I-Stat/1.5t) Work Phone: Radiology Comment on above: Malignant neoplasm o f anus (HCC) [C21.0] Start: 02-01-2025 End: 02-01-2025 ambulatory Lab/[place] [facility] Work Phone: Hematology/Oncology Comment on above: Anal cancer (HCC) Start: 01-14-2025 End: 01-14-2025 Patient encounter procedure Michelle ECHEVARRIA -[facility] Work Phone: Start: 01-14-2025 End: 01-14-2025 ambulatory Julio ECHEVARRIA Work Phone: [facility] Work Phone: Comment on above: Crohn's disease with out complication, unspecified gastrointestinal tract location (HCC) (Primary Dx); Irritable bowel syndrome with diarrhea Start: 01-13-2025 End: 01-13-2025 Refill Jennifer Arias MD Work Phone: [facility] Rheumatology and Arthritis Comment on above: Refill Request Start: 01-07-2025 End: 01-07-2025 ambulatory Treatment Rm 15 [facility] Work Phone: Hematology/Oncology Comment on above: Rheumatoid arthritis involving multiple sites with positive rheumatoid factor (HCC) (Primary Dx); Other osteoporosis without current pathological fracture Start: 01-05-2025 End: 01-05-2025 Telephone encounter Josh Bennett DO Work Phone: Hematology/Oncology Comment on above: Refill Request Start: 12-27-2024 End: 12-27-2024 Emergency department patient visit Julio AGARWALC Work Phone: -Emergency Department Work Phone: Start: 12-14-2024 ambulatory Andrez Pitts Facility :[facility] Start: 12-11-2024 End: 12-11-2024 Telephone encounter Jennifer Arias MD Work Phone: Hematology/Oncology Comment on above: Patient Update Start: 12-10-2024 End: 12-10-2024 Refill Sarah Pearson PA-C Work Phone: [facility] Rheumatology and Arthritis Comment on above: Refill Request Start: 12-07-2024 End: 12-07-2024 ambulatory SIDNEY JOYA Facility[facility] Start: 12-07-2024 End: 12-07-2024 Follow-up encounter Sidney Joya MD Work Phone: Radiation Oncology Comment on above: Radiotherapy follow- up (Primary Dx); Anal cancer (HCC) Start: 12-07-2024 End: 12-07-2024 Telemedicine consultation with patient Sidney Joya MD Work Phone: Radiation Oncology Start: 12-04-2024 End: 12-04-2024 Telephone encounter Jennifer Arias MD Work Phone: [facility] Rheumatology and Arthritis Comment on above: Patient Update Start: 11-30-2024 End: 12-10-2024 Telephone encounter [facility] Provider Hematology/Oncology Comment on above: Appointment (Reclast ) 11/30 AVS Start: 11-30-2024 End: 11-30-2024 Telemedicine consultation with patient Jennifer Arias MD Work Phone: [facility] Rheumatology and Arthritis Start: 11-30-2024 End: 11-30-2024 ambulatory JENNIFER ARIAS Facility:[facility] Start: 11-30-2024 End: 11-30-2024 Patient encounter procedure Jennifer Arias MD Work Phone: [facility] Rheumatology and Arthritis Comment on above: Rheumatoid arthritis involving multiple sites with positive rheumatoid factor (HCC) (Primary Dx); Rheumatoid arthritis involving multiple sites, unspecified whether rheumatoid factor present (HCC); Other osteoporosis without current pathological fracture Start: 11-30-2024 End: 11-30-2024 ambulatory Lab/[place] [facility] Work Phone: Hematology/Oncology Comment on above: Anal cancer (HCC) Anal cancer (HCC) (P rimary Dx) Start: 11-26-2024 End: 11-26-2024 Refill Josh Bennett DO Work Phone: Hematology/Oncology Comment on above: Refill Request Start: 11-23-2024 End: 11-23-2024 ambulatory JULIO ARRIAGA Facility:[facility] Start: 11-18-2024 End: 11-18-2024 Refill Josh Bennett DO Work Phone: Hematology/Oncology Comment on above: Refill Request Start: 11-16-2024 End: 11-16-2024 Refill Sidney Joya MD Work Phone: Radiation Oncology Comment on above: Refill Request Start: 11-16-2024 End: 11-16-2024 Orders Only Sidney Joya MD Work Phone: Radiation Oncology Comment on above: Anal cancer (HCC) (P rimary Dx) Anal cancer (HCC) Patient Education (D ischarge instructions-completed radiation) Start: 11-14-2024 End: 11-17-2024 Refill Josh Bennett DO Work Phone: Hematology/Oncology Comment on above: Refill Request Start: 11-13-2024 End: 11-13-2024 Refill Josh A Masci DO Work Phone: Hematology/Oncology Comment on above: Refill Request Start: 11-13-2024 End: 11-13-2024 ambulatory JULIO ARRIAGA Facility:[facility] Start: 11-12-2024 End: 11-12-2024 ambulatory JULIO ARRIAGA Facility:[facility] Start: 11-11-2024 End: 11-11-2024 ambulatory SIDNEY JOYA Facility:[facility] Start: 11-10-2024 End: 11-10-2024 Patient encounter procedure Sidney Joya MD Work Phone: Radiation Oncology Comment on above: Anal cancer (HCC) (P rimary Dx) Start: 11-10-2024 End: 11-10-2024 ambulatory JULIO ARRIAGA Facility:[facility] Start: 11-09-2024 End: 11-09-2024 Patient encounter procedure Delvin Ron APRN.TOBACCO SAMPLER Work Phone: Hematology/Oncology Start: 11-09-2024 End: 11-09-2024 ambulatory Lab/[facility] [place] [facility] Work Phone: Hematology/Oncology Comment on above: Anal cancer (HCC) (P rimary Dx) Anal cancer (HCC) (P rimary Dx); Chemotherapy induced nausea and vomiting Start: 11-06-2024 End: 11-06-2024 ambulatory Lab/Port [place] [facility] Work Phone: Hematology/Oncology Comment on above: Anal cancer (HCC) (P rimary Dx) Start: 11-05-2024 End: 11-05-2024 Telephone encounter Raul ALVARENGA Hematology/Oncology Comment on above: Social Work Services ; Financial Concerns Start: 11-05-2024 End: 11-05-2024 ambulatory JULIO ARRIAGA [facility] Start: 11-04-2024 End: 11-04-2024 ambulatory JULIO ARRIAGA [facility] Start: 11-03-2024 End: 11-03-2024 Patient encounter procedure Sidney Joya MD Work Phone: Radiation Oncology Comment on above: Anal cancer (HCC) (P rimary Dx) Start: 11-03-2024 End: 11-03-2024 ambulatory JULIO ARRIAGA Facility[facility] Start: 11-02-2024 End: 11-02-2024 ambulatory Treatment 8 [facility] Work Phone: Hematology/Oncology Comment on above: Anal cancer (HCC) (P rimary Dx) Refill Request Start: 10-30-2024 End: 10-30-2024 Office outpatient visit 25 minutes Josh Bennett DO Work Phone: Hematology/Oncology Comment on above: Anal cancer (HCC) (P rimary Dx); Iron 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 blood loss; Chemotherapy induced nausea and vomiting; Bladder spasm Start: 10-30-2024 End: 10-30-2024 Orders Only Sidney Joya MD Work Phone: Radiation Oncology Start: 10-30-2024 End: 10-30-2024 Emergency department patient visit Julio ECHEVARRIA Work Phone: -Emergency Department Work Phone: Start: 10-29-2024 End: 10-29-2024 ambulatory JULIO ARRIAGA Facility[facility] Start: 10-28-2024 End: 10-28-2024 Telephone encounter Sidney Joya MD Work Phone: Radiation Oncology Comment on above: Patient Update Start: 10-28-2024 End: 10-28-2024 ambulatory JULIO ARRIAGA Facility[facility] Start: 10-27-2024 End: 10-27-2024 Patient encounter procedure Ricci Abreu MD Work Phone: Radiation Oncology Comment on above: Anal cancer (HCC) (P rimary Dx) Start: 10-27-2024 End: 10-27-2024 ambulatory RICCI ABREU Facility[facility] Start: 10-26-2024 End: 10-26-2024 Telephone encounter Melisa Ledesma MD Work Phone: Radiation Oncology Comment on above: Patient Update Radiology Pre Proced ure Instructions Patient Question Start: 10-26-2024 End: 10-26-2024 ambulatory JULIO ARRIAGA Facility[facility] Start: 10-24-2024 End: 10-25-2024 Emergency department patient visit Julio Arriaga 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-C Work Phone: -Emergency Department Work Phone: Start: 10-23-2024 End: 10-23-2024 ambulatory SIDNEY JOYA Facility[facility] Start: 10-22-2024 End: 10-22-2024 ambulatory Josh Bennett DO Work Phone: Hematology/Oncology Comment on above: Unine specimen Atten tion Roxanne Start: 10-21-2024 End: 10-26-2024 Telephone encounter Josh Bennett DO Work Phone: Hematology/Oncology Comment on above: Appointment Urinary Problem; Pat ient Update Start: 10-21-2024 End: 10-21-2024 ambulatory SIDNEY JOYA Facility[facility] Start: 10-20-2024 End: 10-20-2024 Patient encounter procedure Shawn Beltran MD Work Phone: Radiation Oncology Comment on above: Anal cancer (HCC) (P rimary Dx) Start: 10-20-2024 End: 10-21-2024 ambulatory Josh Bennett DO Work Phone: Hematology/Oncology Comment on above: PICC line or port Start: 10-19-2024 Non-patient / Non-visit Dr. Lincoln starks MD -[facility] Start: 10-19-2024 End: 10-19-[address] Josh Bennett DO -Cardiovascular Services Work Phone: Start: 10-19-2024 End: 10-19-2024 Orders Only Josh Bennett DO Work Phone: Hematology/Oncology Comment on above: Arm swelling (Primar y Dx); Anal cancer (HCC); PICC (peripherally inserted central catheter) in place Results Anal cancer (HCC) (P rimary Dx) Start: 10-19-2024 End: 10-19-2024 ambulatory Josh Bennett Facility:[facility] Start: 10-16-2024 End: 10-16-2024 Telephone encounter Josh Bennett DO Work Phone: Hematology/Oncology Comment on above: Patient Update (vomi ting and diarrhea) Start: 10-16-2024 End: 10-16-2024 ambulatory Treatment 17 [place] [facility] Work Phone: Hematology/Oncology Comment on above: Anal cancer (HCC) (P rimary Dx) Start: 10-15-2024 End: 10-15-2024 ambulatory JULIO ARRIAGA Facility[facility] Start: 10-14-2024 ambulatory Andrez Pitts Facility :[facility] Start: 10-14-2024 End: 10-14-2024 ambulatory JULIO ARRIAGA Facility:[facility] Start: 10-13-2024 End: 10-13-2024 Patient encounter procedure Sidney Joya MD Work Phone: Radiation Oncology Comment on above: Anal cancer (HCC) (P rimary Dx) Start: 10-13-2024 End: 10-13-2024 ambulatory Treatment 70 [address] [facility] Work Phone: Hematology/Oncology Comment on above: Anal cancer (HCC) (P rimary Dx) Start: 10-12-2024 End: 10-12-2024 Telephone encounter Josh Bennett DO Work Phone: Hematology/Oncology Comment on above: Patient Update Start: 10-12-2024 End: 10-12-2024 ambulatory Lab/Port [facility] Work Phone: Hematology/Oncology Comment on above: Anal cancer (HCC) Start: 10-12-2024 End: 10-12-2024 ambulatory JULIO ARRIAGA Facility[facility] Start: 10-09-2024 End: 10-09-2024 ambulatory Lab/Port [place] [facility] Work Phone: Hematology/Oncology Comment on above: Anal cancer (HCC) (P rimary Dx) Start: 10-08-2024 End: 10-08-2024 Telephone encounter Roxanne Bland RN Hematology/Oncology Comment on above: Audiovisual Tech - O ther (Follow-up ) Start: 10-08-2024 End: 10-08-2024 ambulatory Lab/Port [place] [facility] Work Phone: Hematology/Oncology Comment on above: Anal cancer (HCC) (P rimary Dx) Start: 10-07-2024 End: 12-07-2024 Follow-up encounter Juan José Cheema MD Work Phone: OB/Gynecology Start: 10-07-2024 End: 10-07-2024 ambulatory Treatment Rm 16 [place] [facility] Work Phone: Hematology/Oncology Comment on above: Anal cancer (HCC) (P rimary Dx) Start: 10-06-2024 End: 10-06-2024 Telephone encounter Roxanne Bland RN Hematology/Oncology Comment on above: Audiovisual Tech - O ther (C1D1 Post Treatment Call (5FU/Mitomycin) ) Start: 10-06-2024 End: 10-06-2024 ambulatory JULIO ARRIAGA Facility[facility] Start: 10-06-2024 End: 10-06-2024 Patient encounter procedure Sidney Joya MD Work Phone: Radiation Oncology Comment on above: Anal cancer (HCC) (P rimary Dx) Start: 10-05-2024 End: 12-05-2024 Follow-up encounter Juan José Cheema MD Work Phone: OB/Gynecology Start: 10-05-2024 End: 10-05-2024 ambulatory JULIO ARRIAGA Facility[facility] Start: 10-05-2024 End: 10-05-2024 ambulatory Treatment Rm 7 [place] [facility] Work Phone: Hematology/Oncology Comment on above: Anal cancer (HCC) (P rimary Dx) Start: 10-02-2024 End: 10-02-2024 ambulatory Julio AGARWALC Work Phone: [facility] Work Phone: Start: 10-02-2024 End: 10-02-[address] Josh Bennett DO -Radiology, [facility] Work Phone: Start: 10-02-2024 End: 10-02-2024 ambulatory Josh Bennett Facility:[facility] Start: 09-30-2024 End: 09-30-2024 ambulatory JULIO ARRIAGA Facility[facility] Start: 09-30-2024 Encounter for gynecological examination (general) (routine) without abnormal findings JULIO ARRIAGA [facility] Start: 09-30-2024 End: 09-30-2024 Subsequent hospital visit by physician Screen Mammo [facility] Mammogram Comment on above: Encounter for gyneco logical examination (general) (routine) without abnormal findings [Z01.419] Start: 09-30-2024 End: 09-30-2024 ambulatory JOSH BENNETT Facility[facility] Start: 09-30-2024 End: 09-30-2024 Patient encounter procedure Juan José Cheema MD Work Phone: OB/Gynecology Comment on above: Encounter for gyneco logical examination (general) (routine) without abnormal findings (Primary Dx); Anal cancer (HCC); Encounter for screening for human papillomavirus (HPV); Pap smear for cervical cancer screening; Encounter for screening mammogram for breast cancer Start: 09-30-2024 End: 09-30-2024 Patient encounter status Juan José Cheema MD Work Phone: [facility] Start: 09-29-2024 End: 10-03-2024 Radiation Oncology Note Sidney Joya MD Work Phone: Radiation Oncology Comment on above: Simulation Note Treatment Planning Start: 09-29-2024 End: 10-06-2024 Patient encounter procedure Sarah Pearson PA-C Work Phone: [facility] General Rheumatology and Arthritis Comment on above: Rheumatoid arthritis involving multiple sites with positive rheumatoid factor (HCC) (Primary Dx); High risk medication use; Vitamin D deficiency; Localized osteoporosis without current pathological fracture; Iron deficiency anemia, unspecified iron deficiency anemia type Start: 09-29-2024 End: 09-29-2024 Telemedicine consultation with patient Sarah Jamison Michel SAMUEL Work Phone: [facility] [place] [facility] Rheumatology and Arthritis Start: 09-29-2024 End: 09-30-2024 ambulatory Raul ALVARENGA Hematology/Oncology Start: 09-28-2024 End: 09-29-2024 ambulatory Sarah Jamison Michel SAMUEL Work Phone: [facility] Comment on above: September 29, 2024 appt Start: 09-28-2024 End: 10-02-2024 Telephone encounter Sarah Jamison Michel SAMUEL Work Phone: [facility] Comment on above: appointment change Anal cancer (HCC) (P rimary Dx) Start: 09-25-2024 End: 09-25-2024 career professional [facility] Work Phone: Hematology/Oncology Comment on above: Encounter for educat ion (Primary Dx) Start: 09-24-2024 End: 09-25-2024 Emergency department patient visit Dr. Pawel Cason MD -Emergency Department Work Phone: Start: 09-24-2024 End: 09-24-2024 ambulatory JULIO ARRIAGA Facility[facility] Start: 09-24-2024 End: 09-24-2024 Patient encounter procedure Kimmy Dixon APRN.TOBACCO SAMPLER Work Phone: [facility] Comment on above: Urinary frequency (P rimary Dx); Pain Start: 09-24-2024 End: 10-07-2024 Telephone encounter oJsh Bennett DO Work Phone: Hematology/Oncology Comment on above: Results Start: 09-23-2024 End: 09-23-2024 ambulatory JOSH BENNETT Facility[facility] Start: 09-23-2024 End: 09-23-2024 Subsequent hospital visit by physician Mri Radio [facility] (I-Stat/1.5t) Work Phone: Radiology Comment on above: Anal cancer (HCC) [C 21.0] Start: 09-22-2024 End: 09-22-2024 Telephone encounter Josh Froy Tali BENAVIDES Work Phone: Hematology/Oncology Comment on above: Results Start: 09-18-2024 End: 09-18-2024 Telephone encounter Raul ALVARENGA Hematology/Oncology Comment on above: Social Work Services Start: 09-17-2024 End: 09-17-2024 ambulatory JOSH BENNETT Facility[facility] Start: 09-17-2024 End: 09-17-2024 Patient encounter procedure Sidney Joya MD Work Phone: Radiation Oncology Comment on above: Anal cancer (HCC) Start: 09-16-2024 End: 09-16-2024 Telephone encounter Josh Bennett DO Work Phone: Hematology/Oncology Comment on above: Orders Start: 09-16-2024 End: 09-16-2024 ambulatory Josh Froy Tali BENAVIDES Work Phone: Hematology/Oncology Comment on above: Plavix. [place]imar. Sc aggs 1960 Start: 09-15-2024 End: 09-16-2024 Telephone encounter Josh Froy Tali BENAVIDES Work Phone: Hematology/Oncology Comment on above: avs 09/15 Refill Request Start: 09-15-2024 End: 09-15-2024 Patient encounter procedure Josh Froy Tali BENAVIDES Work Phone: Hematology/Oncology Start: 09-15-2024 End: 09-15-2024 ambulatory Josh Froy Tali BENAVIDES Work Phone: Hematology/Oncology Comment on above: Anal cancer (HCC) (P rimary Dx); Right leg pain; Iron 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 blood loss Start: 09-10-2024 End: 09-10-2024 Telephone encounter Jennifer Arias MD Work Phone: [facility] General Rheumatology and Arthritis Comment on above: Patient Question Start: 09-09-2024 End: 09-09-2024 Refill Sarah Pearson PA-C Work Phone: [facility] [place] [facility] Rheumatology and Arthritis Comment on above: Refill Request Start: 09-07-2024 End: 09-07-2024 Telephone encounter Josh Bennett DO Work Phone: Hematology/Oncology Comment on above: Appointment Start: 09-03-2024 Non-patient / Non-visit Dr. Ronny NEWMAN -[facility] Start: 09-02-2024 ambulatory Julio Arriaga Facility :[facility] Start: 09-02-2024 Non-patient / Non-visit Dr. Ronny NEWMAN -[facility] Start: 09-02-2024 End: 09-03-2024 ambulatory Julio Arriaga Facility:[facility] Start: 09-02-2024 End: 09-03-2024 Evaluation and management of inpatient Dr. Kenya Garcia MD -Medical Surgical 3 Work Phone: Start: 09-02-2024 End: 09-02-2024 ambulatory JULIO ARRIAGA Facility[facility] Start: 09-02-2024 End: 09-02-2024 Patient encounter procedure Kimmy iDxon APRN.TOBACCO SAMPLER Work Phone: [facility] Comment on above: Rectal pain (Primary Dx) Start: 08-27-2024 End: 08-27-2024 Patient encounter procedure Andrez Pitts DO -[facility] Work Phone: Start: 08-27-2024 End: 08-27-2024 ambulatory Julio Arriaga Facility:[facility] Start: 08-20-2024 End: 08-20-2024 ambulatory JOSH BENNETT Facility[facility] Start: 08-20-2024 End: 08-20-2024 Subsequent hospital visit by physician Bone Density [facility] Work Phone: Radiology Comment on above: Osteoporosis, unspec ified osteoporosis type, unspecified pathological fracture presence [M81.0] Start: 08-17-2024 End: 08-17-2024 Telephone encounter Josh Bennett DO Work Phone: Hematology/Oncology Comment on above: Appointment Start: 07-02-2024 End: 07-02-2024 ambulatory Treatment Rm 15 [place] [facility] Work Phone: Hematology/Oncology Comment on above: Iron deficiency anem ia due to chronic blood loss (Primary Dx); Iron malabsorption Start: 06-29-2024 End: 06-29-2024 ambulatory JULIO ARRIAGA [facility] Start: 06-24-2024 End: 06-24-2024 ambulatory Treatment Rm 15 [place] [facility] Work Phone: Hematology/Oncology Comment on above: Iron deficiency anem ia due to chronic blood loss (Primary Dx); Iron malabsorption Start: 06-18-2024 End: 06-18-2024 ambulatory Treatment Rm 17 [place] [facility] Work Phone: Hematology/Oncology Comment on above: Rheumatoid arthritis involving multiple sites with positive rheumatoid factor (HCC) (Primary Dx); Iron 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 blood loss; Iron malabsorption Start: 06-16-2024 End: 06-16-2024 Telephone encounter Jennifer Arias MD Work Phone: [facility] Rheumatology and Arthritis Comment on above: Patient Question Start: 06-15-2024 End: 06-15-2024 ambulatory Josh Bennett DO Work Phone: Hematology/Oncology Comment on above: Iron deficiency anem ia, unspecified iron deficiency anemia type (Primary Dx) Start: 06-15-2024 End: 06-15-2024 Patient encounter procedure Josh Bennett DO Work Phone: Hematology/Oncology Start: 06-14-2024 End: 06-15-2024 Refill Jennifer Arias MD Work Phone: [facility] Rheumatology and Arthritis Comment on above: Refill Request Start: 06-09-2024 End: 06-09-2024 ambulatory Julio Arriaga Facility:[facility] Start: 06-06-2024 End: 06-06-2024 Emergency department patient visit Julio Arriaga Facility:[facility] Start: 06-03-2024 End: 06-03-2024 Telephone encounter Julio Arriaga APRN.CNP Work Phone: [facility] [place] Comment on above: Appointment Start: 05-29-2024 End: 05-29-2024 Telephone encounter Sarah K Michel SAMUEL Work Phone: [facility] Arthritis & Rheumatology Comment on above: Results Start: 05-21-2024 End: 05-21-2024 ambulatory Chair 1 [facility] Hematology/Oncology Comment on above: Rheumatoid arthritis involving multiple sites with positive rheumatoid factor (HCC) (Primary Dx) Start: 05-15-2024 End: 05-15-2024 Telemedicine consultation with patient Sarah Jamison Michel SAMUEL Work Phone: [facility] Start: 05-15-2024 End: 05-15-2024 ambulatory Sarah Jamison Michel SAMUEL Work Phone: [facility] Rheumatology Comment on above: Rheumatoid arthritis involving multiple sites with positive rheumatoid factor (HCC) (Primary Dx); Osteoporosis, unspecified osteoporosis type, unspecified pathological fracture presence; High risk medication use; Vitamin D deficiency; Rash and nonspecific skin eruption Start: 04-27-2024 End: 04-27-2024 ambulatory Julio Arriaga Facility:[facility] Start: 04-01-2024 End: 04-01-2024 Patient encounter procedure Chair [facility] Comment on above: Rheumatoid arthritis involving multiple sites with positive rheumatoid factor (HCC) (Primary Dx) Start: 04-01-2024 End: 04-01-2024 ambulatory Chair 1 Infusion [facility] Start: 03-25-2024 End: 03-25-2024 ambulatory Julio Arriaga Facility:[facility] Start: 03-20-2024 ambulatory Julio Arriaga Facility :[facility] Start: 03-20-2024 End: 03-20-2024 ambulatory Julio Arriaga Facility:[facility] Start: 03-12-2024 End: 03-12-2024 ambulatory CLARICE LEÓN Facility:[facility] Start: 03-10-2024 End: 03-10-2024 ambulatory Julio Arriaga Facility:[facility] Start: 02-26-2024 End: 02-26-2024 Patient encounter procedure [facility] Comment on above: Rheumatoid arthritis involving multiple sites with positive rheumatoid factor (HCC) (Primary Dx) Start: 02-26-2024 End: 02-26-2024 ambulatory Chair 2 [facility] Start: 01-29-2024 End: 01-29-2024 Patient encounter procedure Chair [facility] Comment on above: Rheumatoid arthritis involving multiple sites with positive rheumatoid factor (HCC) (Primary Dx) Start: 01-29-2024 End: 01-29-2024 ambulatory Chair [facility] Start: 12-31-2023 Telephone encounter Jennifer miranda MD Work Phone: [facility] Rheumatology and Arthritis Comment on above: Patient Question Start: 12-31-2023 End: 12-31-2023 ambulatory Chair 1 [facility] Start: 12-31-2023 End: 12-31-2023 Patient encounter procedure Chair [facility] Comment on above: Rheumatoid arthritis involving multiple sites with positive rheumatoid factor (HCC) (Primary Dx) Start: 12-30-2023 End: 03-05-2024 ambulatory [facility] Start: 12-02-2023 ambulatory JULIO TOBACCO SAMPLER [facility] Start: 11-21-2023 End: 11-21-2023 Patient encounter procedure Jennifer Arias MD Work Phone: [facility] Rheumatology and Arthritis Comment on above: Rheumatoid arthritis involving multiple sites with positive rheumatoid factor (HCC) (Primary Dx); High risk medication use; Localized osteoporosis without current pathological fracture; Vitamin D deficiency Start: 11-20-2023 End: 11-20-2023 ambulatory Chair 1 [facility] Start: 11-20-2023 End: 11-20-2023 Patient encounter procedure Chair [facility] Comment on above: Rheumatoid arthritis involving multiple sites with positive rheumatoid factor (HCC) (Primary Dx); Rheumatoid arthritis involving multiple sites, unspecified whether rheumatoid factor present (HCC); Osteoporosis, unspecified; Vitamin D deficiency Start: 11-12-2023 Orders Only Sarah huynh PA-C Work Phone: [facility] Rheumatology and Arthritis Start: 11-11-2023 Orders Only Tracy Velez PA-C Work Phone: [facility] Start: 11-06-2023 ambulatory JULIO MOLINA [facility] Start: 10-19-2023 End: 10-19-2023 Emergency department patient visit 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-Marga Arriaga 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 Work Phone: [facility]-Emergency Department Work Phone: Start: 10-18-2023 Refill Sarah huynh PA-C Work Phone: [facility] Rheumatology and Arthritis Comment on above: Refill Request Start: 10-16-2023 End: 10-16-2023 ambulatory FREDI NEWMAN [facility] Start: 10-15-2023 Orders Only Jennifer mcduffie MD Work Phone: [facility] Rheumatology and Arthritis Start: 09-26-2023 End: 09-26-2023 ambulatory Chair 5 Infusion [facility] Comment on above: Rheumatoid arthritis involving multiple sites with positive rheumatoid factor (HCC) (Primary Dx); Rheumatoid arthritis involving multiple sites, unspecified whether rheumatoid factor present (HCC) Start: 09-26-2023 End: 09-26-2023 ambulatory JULIO MOLINA [facility] Start: 09-19-2023 End: 09-19-2023 Orders Only Jennifer Arias MD Work Phone: [facility] Rheumatology and Arthritis Start: 09-18-2023 End: 09-18-2023 Patient encounter procedure 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Rowan Arriaga NP Work Phone: [facility]opaedic Specia Work Phone: Start: 09-16-2023 Telephone encounter Jennifer miranda MD Work Phone: [facility] Arthritis & Rheumatology Comment on above: Medication Preauthor ization ([place] [place] Pending [id number] [facility]/Portal) Start: 09-06-2023 End: 09-06-2023 ambulatory 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-C Julio Arriaga 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 Work Phone: [facility] Work Phone: Start: 09-06-2023 End: 09-06-2023 Patient encounter procedure 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-Marga Arriaga 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 Work Phone: [facility]-Laboratory, Specimen Work Phone: Start: 08-30-2023 End: 08-30-2023 ambulatory Chair 4 [facility] [place] [facility] Comment on above: Rheumatoid arthritis involving multiple sites with positive rheumatoid factor (HCC) (Primary Dx); Rheumatoid arthritis involving multiple sites, unspecified whether rheumatoid factor present (HCC) Start: 07-25-2023 End: 07-25-2023 ambulatory 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-C Julio Arriaga 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 Work Phone: [facility] Work Phone: Start: 07-25-2023 End: 07-25-2023 Patient encounter procedure 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-Marga Arriaga 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 Work Phone: [facility] Work Phone: Start: 07-12-2023 End: 07-12-2023 Patient encounter procedure 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-Marga Arriaga 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 Work Phone: [facility] Gastroenterology Work Phone: Start: 07-05-2023 End: 07-05-2023 ambulatory 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-C Julio Arriaga 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 Work Phone: [facility] Work Phone: Start: 07-05-2023 End: 07-05-2023 Patient encounter procedure 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-Marga Arriaga 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 Work Phone: [facility] Gastroenterology Work Phone: Start: 07-03-2023 End: 07-03-2023 ambulatory Chair 7 [facility] [place] Work Phone: Hematology/Oncology Comment on above: Rheumatoid arthritis involving multiple sites with positive rheumatoid factor (HCC) (Primary Dx); Rheumatoid arthritis involving multiple sites, unspecified whether rheumatoid factor present (HCC) Start: 06-19-2023 Orders Only Jennifer mcduffie MD Work Phone: [facility] Rheumatology and Arthritis Start: 05-27-2023 End: 05-27-2023 ambulatory Chair 9 [facility] Work Phone: Hematology/Oncology Comment on above: Rheumatoid arthritis involving multiple sites with positive rheumatoid factor (HCC) (Primary Dx); Rheumatoid arthritis involving multiple sites, unspecified whether rheumatoid factor present (HCC) Start: 05-21-2023 End: 05-21-2023 Patient encounter procedure Sarah Pearson PA-C Work Phone: [facility] Rheumatology and Arthritis Comment on above: Rheumatoid arthritis involving multiple sites with positive rheumatoid factor (HCC) (Primary Dx); High risk medication use; Localized osteoporosis without current pathological fracture; Vitamin D deficiency Start: 04-29-2023 Telephone encounter Sarah cotto PA-C Work Phone: [facility] Arthritis & Rheumatology Comment on above: Results Start: 04-25-2023 End: 04-25-2023 ambulatory Bed 1 [facility] [place] Work Phone: Hematology/Oncology Comment on above: Osteoporosis, unspec ified (Primary Dx) Start: 04-25-2023 End: 04-25-2023 ambulatory Bed 1 [facility] [place] Work Phone: Hematology/Oncology Comment on above: Rheumatoid arthritis involving multiple sites, unspecified whether rheumatoid factor present (HCC) (Primary Dx); Rheumatoid arthritis involving multiple sites with positive rheumatoid factor (HCC); Vitamin D deficiency; Localized osteoporosis without current pathological fracture Start: 04-17-2023 End: 04-17-2023 Patient encounter procedure SINAI Arriaga NP Work Phone: [facility] Work Phone: Start: 04-13-2023 Refill Jennifer mcduffie MD Work Phone: [facility] General Rheumatology and Arthritis Comment on above: Refill Request Start: 04-11-2023 Telephone encounter Jennifer miranda MD Work Phone: [facility] General Rheumatology and Arthritis Start: 02-01-2023 Orders Only Jennifer mcduffie MD Work Phone: [facility] Rheumatology and Arthritis Start: 01-24-2023 Non-patient / Non-visit MD GIANNI NAM [facility] Start: 01-23-2023 Non-patient / Non-visit MD GIANNI NAM [facility] Start: 01-23-2023 End: 01-24-2023 Evaluation and management of inpatient MD GIANIN CERVANTES [facility]-Medical Surgical 3 Work Phone: Start: 01-09-2023 End: 01-09-[address] Selene Pierre Work Phone: [facility]opa[facility] Start: 01-07-2023 End: 01-07-[address] Selene Pierre Work Phone: [facility] Work Phone: Start: 01-07-2023 End: 01-07-[address] Selene Pierre Work Phone: [facility] Start: 01-02-2023 Telephone encounter Jennifer miranda MD Work Phone: [facility] Arthritis & Rheumatology Comment on above: PRECERT NOT REQUIRED (Zoledronic Acid 5mg PRECERT NOT REQUIRED [id number] 01.02.23 - 01.03.24 for 1 visit [facility] Dual/Portal) Start: 12-26-2022 Telephone encounter Jennifer miranda MD Work Phone: [facility] General Rheumatology and Arthritis Comment on above: Patient Question Start: 12-24-2022 Refill Sarah huynh PA-C Work Phone: [facility] Rheumatology and Arthritis Comment on above: Refill Request Start: 12-22-2022 Refill Jennifer mcduffie MD Work Phone: [facility] Rheumatology and Arthritis Comment on above: Refill Request Start: 12-17-2022 End: 12-17-[address] Selene Pierre Work Phone: [facility] Start: 12-06-2022 End: 12-06-[address] Selene Pierre Work Phone: [facility] Start: 12-05-2022 End: 12-05-[address] Selene Pierre Work Phone: [facility] Work Phone: Start: 12-05-2022 End: 12-05-[address] Selene Pierre Work Phone: [facility]-Laboratory, Specimen Start: 11-29-2022 End: 11-29-[address] Selene Pierre Work Phone: [facility] Work Phone: Start: 11-29-2022 End: 11-29-[address] Selnee Pierre Work Phone: [facility] Start: 11-26-2022 Orders Only Jennifer mcduffie MD Work Phone: [facility] Rheumatology and Arthritis Start: 11-21-2022 End: 11-21-[address] Selene Pierre Work Phone: [facility] Gastroenterology Start: 11-19-2022 Refill Carol Mathews APRN, .CNP Work Phone: [facility] [place] Comment on above: Refill Request Start: 11-14-2022 End: 11-14-[address] Selene Pierre Work Phone: [facility] Start: 11-06-2022 Non-patient / Non-visit Dr. Sunil Pierre Work Phone: [facility] Start: 11-06-2022 End: 11-06-2022 Admission to same day surgery center Dr. Selene Pierre Work Phone: [facility]-Endoscopy Start: 11-06-2022 End: 11-06-[address] Selene Pierre Work Phone: [facility] Work Phone: Start: 11-02-2022 End: 11-02-2022 ambulatory Chair 1 [facility] Hematology/Oncology Comment on above: Rheumatoid arthritis involving multiple sites, unspecified whether rheumatoid factor present (HCC) (Primary Dx); Vitamin D deficiency; Other osteoporosis with current pathological fracture with malunion, subsequent encounter; Rheumatoid arthritis involving multiple sites with positive rheumatoid factor (HCC) Start: 10-31-2022 Refill Selene Roberson Work Phone: [facility] Comment on above: Refill Request Start: 10-24-2022 Telephone encounter Jnenifer miranda MD Work Phone: [facility] Arthritis & Rheumatology Comment on above: APPROVED (Ori VILLASENOR [id number] 09.06.22 - 09.06.23 [facility] Medicare Portal) Start: 10-18-2022 End: 10-18-2022 Patient encounter procedure Jennifer Arias MD Work Phone: [facility] Rheumatology and Arthritis Comment on above: Pain in joint, multi ple sites (Primary Dx); Osteoporosis, unspecified osteoporosis type, unspecified pathological fracture presence Start: 10-17-2022 Non-patient / Non-visit Dr. Sunil Pierre Work Phone: [facility] Start: 10-17-2022 End: 10-17-[address] Selene Pierre Work Phone: [facility] Work Phone: Start: 10-17-2022 End: 10-17-[address] [facility] Start: 10-15-2022 End: 10-15-[address] Selene Pierre Work Phone: [facility] Work Phone: Start: 10-15-2022 End: 10-15-[address] Selene Pierre Work Phone: [facility] Start: 09-20-2022 Refill Sarah huynh PA-C Work Phone: [facility] Rheumatology and Arthritis Comment on above: Refill Request Start: 09-19-2022 End: 09-19-[address] Selene Pierre Work Phone: [facility] Work Phone: Start: 09-19-2022 End: 09-19-[address] Selene Pierre Work Phone: [facility] Gastroenterology Start: 09-12-2022 End: 09-12-[address] Selene Pierre Work Phone: [facility] Start: 09-06-2022 End: 09-06-[address] Selene Pierre Work Phone: [facility] Work Phone: Start: 09-06-2022 End: 09-06-[address] Selene Pierre Work Phone: [facility]-Pulmonary Services/Neurology Start: 09-05-2022 Telephone encounter Selene brooke MD Work Phone: [facility] [place] Comment on above: Medical Attestation forms Start: 09-03-2022 Orders Only Jennifer mcduffie MD Work Phone: [facility] Rheumatology and Arthritis Start: 08-15-2022 End: 08-15-[address] Selene Pierre Work Phone: [facility] Start: 08-14-2022 End: 08-14-2022 ambulatory Chair 1 [facility] [place] Hematology/Oncology Comment on above: Other osteoporosis w ith current pathological fracture with malunion, subsequent encounter (Primary Dx); Rheumatoid arthritis involving multiple sites with positive rheumatoid factor (HCC); Rheumatoid arthritis involving multiple sites, unspecified whether rheumatoid factor present (HCC) Refill Request Start: 08-09-2022 Orders Only Jennifer mcduffie MD Work Phone: [facility] Arthritis & Rheumatology Start: 08-08-2022 Orders Only Jennifer mcduffie MD Work Phone: [facility] Arthritis & Rheumatology Start: 08-02-2022 End: 08-02-2022 Patient encounter procedure Leilani Colmenares APRN.TOBACCO SAMPLER Work Phone: [facility] Comment on above: Chronic bilateral lo w back pain without sciatica (Primary Dx); Lumbar spondylosis; Myofascial pain; Fibromyalgia; Sacroiliitis (HCC) Start: 07-17-2022 End: 07-17-2022 ambulatory Chair 8 [facility] [place] Work Phone: Hematology/Oncology Comment on above: Other osteoporosis w ith current pathological fracture with malunion, subsequent encounter (Primary Dx); Rheumatoid arthritis involving multiple sites with positive rheumatoid factor (HCC); Rheumatoid arthritis involving multiple sites, unspecified whether rheumatoid factor present (HCC) Start: 07-13-2022 Orders Only Jennifer mcduffie MD Work Phone: [facility] Rheumatology and Arthritis Start: 07-13-2022 End: 07-13-[address] Selene Pierre Work Phone: [facility] Start: 07-10-2022 End: 07-10-2022 Subsequent hospital visit by physician Bone Density [facility] Work Phone: Radiology Comment on above: Localized osteoporos is without current pathological fracture [M81.6] Start: 06-26-2022 End: 06-26-2022 Subsequent hospital visit by physician Xr [place] [facility] [place] Comment on above: Pain in left hip [M2 5.552] Start: 06-26-2022 End: 06-26-2022 Patient encounter procedure Sarah Pearson PA-C Work Phone: [facility] Rheumatology and Arthritis Comment on above: Localized osteoporos is without current pathological fracture (Primary Dx); Pain in left hip; Fall, initial encounter; Rash and nonspecific skin eruption; Rheumatoid arthritis involving multiple sites with positive rheumatoid factor (HCC); High risk medication use; Vitamin D deficiency Start: 06-15-2022 Refill Sarah huynh PA-C Work Phone: [facility] Rheumatology and Arthritis Comment on above: Refill Request Start: 06-11-2022 Refill Jacek Mitchell MD Work Phone: [facility] Comment on above: Refill Request Start: 05-30-2022 Orders Only Jennifer mcduffie MD Work Phone: [facility] Rheumatology and Arthritis Start: 05-29-2022 Orders Only Jennifer mcduffie MD Work Phone: [facility] Rheumatology and Arthritis Start: 05-17-2022 Telephone encounter Geronimo hedrick APRN.TOBACCO SAMPLER Work Phone: [place] [facility] Comment on above: Results Start: 05-17-2022 End: 05-17-2022 ambulatory Carol Mathews APRN.TOBACCO SAMPLER Work Phone: Internal Medicine [place] Comment on above: COVID (Primary Dx) Start: 05-17-2022 End: 05-17-2022 Telemedicine consultation with patient Carol Mathews MECHANICAL FIELD ENGINEER.TOBACCO SAMPLER Work Phone: [facility] Start: 05-16-2022 End: 05-16-2022 Patient encounter procedure Sarah De Luna APRN.TOBACCO SAMPLER Work Phone: [place] [facility] Comment on above: Exposure to 2018 el coronavirus (Primary Dx) Start: 05-03-2022 End: 05-03-2022 ambulatory Bed 1 [facility] [place] Work Phone: Hematology/Oncology Comment on above: Other osteoporosis w ith current pathological fracture with malunion, subsequent encounter (Primary Dx); Rheumatoid arthritis involving multiple sites with positive rheumatoid factor (HCC); Rheumatoid arthritis involving multiple sites, unspecified whether rheumatoid factor present (HCC) Start: 05-01-2022 Orders Only Jennifer mcduffie MD Work Phone: [facility] Rheumatology and Arthritis Start: 04-18-2022 Refill Sarah Yaquelin Baril e PA-C Work Phone: [facility] Rheumatology and Arthritis Comment on above: Refill Request Start: 04-13-2022 Refill Sarah K Baril e PA-C Work Phone: [facility] Rheumatology and Arthritis Comment on above: Refill Request Start: 04-05-2022 End: 04-05-2022 ambulatory Bed 1 [facility] [place] Work Phone: Hematology/Oncology Comment on above: Other osteoporosis w ith current pathological fracture with malunion, subsequent encounter (Primary Dx); Rheumatoid arthritis involving multiple sites with positive rheumatoid factor (HCC); Rheumatoid arthritis involving multiple sites, unspecified whether rheumatoid factor present (HCC) Start: 03-29-2022 End: 03-29-2022 Patient encounter procedure BELLA GILLESPIE MD [facility] Start: 03-27-2022 Telephone encounter Leilani harris APRN.TOBACCO SAMPLER Work Phone: [facility] Comment on above: Future Appointment Start: 03-22-2022 Telephone encounter Leilani harris MECHANICAL FIELD ENGINEER.TOBACCO SAMPLER Work Phone: [facility] Comment on above: Appointment Start: 03-19-2022 End: 03-19-2022 Patient encounter procedure BELLA GILLESPIE MD [facility] Start: 03-12-2022 Refill Jennifer mcduffie MD Work Phone: [facility] Rheumatology and Arthritis Comment on above: Refill Request Start: 03-05-2022 End: 03-05-2022 ambulatory Chair 4 [facility] Hematology/Oncology Comment on above: Other osteoporosis w ith current pathological fracture with malunion, subsequent encounter (Primary Dx); Rheumatoid arthritis involving multiple sites with positive rheumatoid factor (HCC); Rheumatoid arthritis involving multiple sites, unspecified whether rheumatoid factor present (HCC) Start: 02-01-2022 Telephone encounter Jacek Mitchell MD Work Phone: [facility] Comment on above: Injections ([place]) Future Appointment ( [place]) Lumbar spondylosis ( Primary Dx) Start: 02-01-2022 End: 02-01-2022 Patient encounter procedure Leilani Colmenares MECHANICAL FIELD ENGINEER.TOBACCO SAMPLER Work Phone: [facility] Comment on above: Lumbar spondylosis ( Primary Dx); Chronic bilateral low back pain without sciatica; Myofascial pain; Fibromyalgia Start: 01-30-2022 End: 01-30-2022 ambulatory Sarah Pearson PA-C Work Phone: [facility] Rheumatology and Arthritis Comment on above: Vitamin D deficiency ; Rheumatoid arthritis involving multiple sites with positive rheumatoid factor (HCC) Start: 01-30-2022 End: 01-30-2022 Telemedicine consultation with patient Sarah Pearson PA-C Work Phone: [facility] Start: 01-24-2022 ambulatory Selene Roberson Work Phone: [facility] [place] Start: 01-23-2022 Orders Only Jennifer mcduffie MD Work Phone: [facility] Rheumatology and Arthritis Start: 01-18-2022 Refill Sarah huynh PA-C Work Phone: [facility] Rheumatology and Arthritis Comment on above: Refill Request Start: 01-18-2022 Refill Carol Mathews APRN .TOBACCO SAMPLER Work Phone: [facility] [place] Comment on above: Refill Request Start: 01-08-2022 Refill Carol Mathews MECHANICAL FIELD ENGINEER .TOBACCO SAMPLER Work Phone: [facility] [place] Comment on above: Refill Request Start: 01-04-2022 Telephone encounter Jennifer miranda MD Work Phone: [facility] Arthritis & Rheumatology Comment on above: APPROVED (Jung VILLASENOR [id number] 01.25.2022 - 01.25.2023 per [facility] medicare Portal) Start: 12-28-2021 End: 12-28-2021 ambulatory Chair 8 [facility] [place] Work Phone: Hematology/Oncology Comment on above: Other osteoporosis w ith current pathological fracture with malunion, subsequent encounter (Primary Dx); Rheumatoid arthritis involving multiple sites with positive rheumatoid factor (HCC); Rheumatoid arthritis involving multiple sites, unspecified whether rheumatoid factor present (HCC) Start: 12-22-2021 Orders Only Sarah huynh PA-C Work Phone: [facility] Arthritis & Rheumatology Start: 11-30-2021 End: 11-30-2021 ambulatory Chair 1 [facility] [place] Hematology/Oncology Comment on above: Other osteoporosis w ith current pathological fracture with malunion, subsequent encounter (Primary Dx); Rheumatoid arthritis involving multiple sites with positive rheumatoid factor (HCC); Rheumatoid arthritis involving multiple sites, unspecified whether rheumatoid factor present (HCC) Start: 11-27-2021 Orders Only Jennifer mcduffie MD Work Phone: [facility] Rheumatology and Arthritis Start: 11-19-2021 Refill Carol Mathews APRN, .CNP Work Phone: [facility] [place] Comment on above: Refill Request Start: 11-02-2021 End: 11-02-2021 ambulatory Chair 5 [facility] [place] Work Phone: Hematology/Oncology Comment on above: Rheumatoid arthritis involving multiple sites with positive rheumatoid factor (HCC) (Primary Dx); Other osteoporosis with current pathological fracture with malunion, subsequent encounter; Rheumatoid arthritis involving multiple sites, unspecified whether rheumatoid factor present (HCC) Start: 11-01-2021 Telephone encounter Jennifer miranda MD Work Phone: [facility] Rheumatology and Arthritis Comment on above: Orders Start: 10-02-2021 End: 12-12-2021 Physical therapy management BELLA GILLESPIE MD [facility] [place] Start: 08-28-2021 End: 09-01-2021 Evaluation and management of inpatient SONG ALMEIDA MD [facility] Start: 05-01-2021 End: 05-01-2021 Subsequent hospital visit by physician Xr [facility] [place] Work Phone: Radiology Comment on above: 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, U09.9] Start: 04-19-2021 ambulatory Selene Roberson Work Phone: Internal Medicine [place] Comment on above: Vomiting Start: 02-08-2021 End: 02-08-2021 Subsequent hospital visit by physician Xr [facility] [place] Radiology Comment on above: Right knee pain, uns pecified chronicity [M25.561] Procedures Date Procedure Procedure Detail Performing Clinician Start: 02-01-2025 Blood count complete auto&auto difrntl wbc Josh Mcduffie Masci DO Work Phone: Start: 01-14-2025 Blood count complete auto&auto difrntl wbc Michelle Baker APRN Work Phone: Start: 12-27-2024 CT of pelvis without contrast Julio Arriaga 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-C Work Phone: Start: 11-30-2024 Blood count complete auto&auto difrntl wbc Josh A Masci DO Work Phone: Start: 11-16-2024 Blood count complete auto&auto difrntl wbc Josh A Masci DO Work Phone: Start: 11-09-2024 Blood count complete auto&auto difrntl wbc Josh A Masci DO Work Phone: Start: 10-30-2024 Plain x-ray of pelvi s and lower extremity Julio Arriaga 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-C Work Phone: Start: 10-30-2024 CT of head without contrast Julio Arriaga 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-C Work Phone: Start: 10-24-2024 Urnls dip stick/tabl et reagent auto microscopy Julio Arriaga 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-C Work Phone: Start: 10-24-2024 Estimated creatinine clearance Julio Arriaga 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-C Work Phone: Start: 10-24-2024 Computed tomography of abdomen and pelvis with intravenous contrast Julio Arriaga 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-C Work Phone: Start: 10-24-2024 CT angiography of ch est with contrast Julio Arriaga 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-C Work Phone: Start: 10-24-2024 SARS-CoV-2, Influenz a & RSV (PCR) Julio Arriaga 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-C Work Phone: Start: 10-12-2024 Blood count complete auto&auto difrntl wbc Josh Mcduffie Patronpath DO Work Phone: Start: 10-05-2024 Blood count complete auto&auto difrntl wbc Josh Mcduffie Sandvinei DO Work Phone: Start: 09-24-2024 CT of pelvis with contrast Julio Arriaga 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-C Work Phone: Start: 09-24-2024 Estimated creatinine clearance Julio Arriaga 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-C Work Phone: Start: 09-24-2024 Urnls dip stick/tabl et rgnt auto w/o microscopy Kimmy Dixon APRN.TOBACCO SAMPLER Work Phone: Start: 09-24-2024 Blood culture Julio Arriaga 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-C Work Phone: Start: 09-23-2024 Mri pelvis w/o & w/c ontrast material Josh Bennett DO Work Phone: Start: 09-23-2024 Ct thorax w/contrast material Josh Bennett DO Work Phone: Start: 09-03-2024 Estimated creatinine clearance Julio Arriaga 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-C Work Phone: Start: 09-03-2024 Measurement of renal function Julio Arriaga 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-C Work Phone: Comment on above: GFR Calc Start: 09-02-2024 SARS-CoV-2, Influenz a & RSV (PCR) Julio Arriaga 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-C Work Phone: Start: 09-02-2024 Urnls dip stick/tabl et reagent auto microscopy Julio Arriaga 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-C Work Phone: Start: 09-02-2024 Computed tomography of abdomen and pelvis with intravenous contrast Julio Arriaga 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-C Work Phone: Start: 09-02-2024 X-ray of chest, PA a nd lateral views Julio Arriaga 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-C Work Phone: Start: 05-21-2024 Blood count complete auto&auto difrntl wbc Tracy Chimacum PA-C Work Phone: Start: 01-29-2024 Blood count complete auto&auto difrntl wbc Tracy Rosie PA-C Work Phone: Start: 11-20-2023 Blood count complete auto&auto difrntl wbc Tracy Rosie PA-C Work Phone: Start: 11-20-2023 C-reactive protein Daniele Arais MD Work Phone: Start: 10-19-2023 X-ray of unilateral ribs, two views without x-ray of chest 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-C Julio Arriaga 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 Work Phone: Start: 10-19-2023 CT of head without contrast 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-C Julio Arriaga 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 Work Phone: Start: 09-18-2023 Radiologic examinati on of knee 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-C Julio Arriaga 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 Work Phone: Start: 09-06-2023 Ova OR parasites identification 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-C Julio Arriaga 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 Work Phone: Start: 07-25-2023 MRI of small intestine 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-C Julio Arriaga 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 Work Phone: Start: 04-25-2023 CREATININE BLD Jennifer Arias MD Work Phone: Start: 04-25-2023 Blood count complete automated Jennifer Arias MD Work Phone: Start: 04-25-2023 Hepatitis c antibody Tressa Pearson PA-C Work Phone: Start: 04-25-2023 Iaad ia hepatitis b surface antigen Sarah Pearson PA-C Work Phone: Start: 01-23-2023 Radiologic examinati on of knee MD GIANNI CERVANTES Start: 01-23-2023 Total Knee Replaceme nt Robotic Arm Jonathan (Right) MD GIANNI CERVANTES Start: 01-11-2023 Nasal Screen MRSA/MSSA MD GIANNI CERVANTES Start: 01-07-2023 MRI of lower extremity Dr. Selene Pierre Work Phone: Start: 12-05-[address] Selene Pierre Work Phone: Start: 11-29-2022 MRI of joint of lowe r extremity Dr. Selene Pierre Work Phone: Start: 11-14-2022 Plain X-ray of tibia and fibula Dr. Selene Pierre Work Phone: Start: 11-06-[address] Selene Pierre Work Phone: Start: 10-15-2022 Computed tomography of abdomen and pelvis with contrast Dr. Selene Pierre Work Phone: Start: 08-15-2022 Radiologic examinati on of knee Dr. Selene Pierre Work Phone: Start: 07-17-2022 Blood count complete auto&auto difrntl wbc Jennifer Arias MD Work Phone: Start: 07-17-2022 C-reactive protein Daniele Arias MD Work Phone: Start: 07-10-2022 Dxa bone density luca dy 1/> sites axial skel Sarah Pearson PA-C Work Phone: Start: 03-05-2022 Blood count complete auto&auto difrntl wbc Jennifer Arias MD Work Phone: Start: 03-05-2022 C-reactive protein Daniele Arias MD Work Phone: Start: 05-01-2021 Radiologic exam ches t 2 views Selene Pierre MD Work Phone: Start: 02-08-2021 Radiologic exam knee complete 4/more views Michael Knott MD Work Phone: Start: 11-18-2018 Lipid 1996 panel - S abiodun or Plasma Jennifer Arias MD Work Phone: Start: 12-10-2017 Mammography Jennifer miranda MD Work Phone: Start: 09-23-2017 Colonoscopy Jennifer miranda MD Work Phone: Start: 07-29-2008 Total knee replacement SONG ALMEIDA MD section - at term (finding) SONG ALMEIDA MD Comment on above: TIMES TWO, BOTH WITH GENERAL ANESTHESIA 1983 AND 1986 Dislocation of shoul mikel joint (disorder) SONG ALMEIDA MD Comment on above: PINNED Plan of Treatment Date Care Activity Detail Author Start: 02-02-2028 Diabetes Screening Diabetes Screening [facility] Start: 01-15-2028 Diabetes Screening Diabetes Screening [facility] Start: 12-01-2027 Diabetes Screening Diabetes Screening [facility] Start: 11-24-2027 Diabetes Screening Diabetes Screening [facility] Start: 11-17-2027 Diabetes Screening Diabetes Screening [facility] Start: 11-10-2027 Diabetes Screening Diabetes Screening [facility] Start: 10-31-2027 Diabetes Screening Diabetes Screening [facility] Start: 10-20-2027 Diabetes Screening Diabetes Screening [facility] Start: 10-06-2027 Diabetes Screening Diabetes Screening [facility] Start: 09-23-2027 Colonoscopy COLONOSCOPY [facility] Start: 09-23-2027 COLORECTAL CANCER SCREENING COLORECTAL CANCER SCREENING [facility] Start: 09-23-2027 Screening for malignant neoplasm of colon [facility] Start: 09-16-2027 Diabetes Screening Diabetes Screening [facility] Start: 05-21-2027 Diabetes Screening Diabetes Screening [facility] Start: 01-28-2027 Diabetes Screening Diabetes Screening [facility] Start: 11-19-2026 Diabetes Screening Diabetes Screening [facility] Start: 08-20-2026 Screening for osteoporosis Bone Density Screening [facility] Start: 07-31-2026 Diabetes Screening Diabetes Screening [facility] Start: 04-25-2026 Diabetes Screening Diabetes Screening [facility] Start: 11-30-2025 BP Controlled (<130/80) BP Controlled (<130/80) [facility] Start: 10-30-2025 BP Controlled (<130/80) BP Controlled (<130/80) [facility] Start: 10-18-2025 DIABETES SCREEN DIABETES SCREEN [facility] Start: 10-18-2025 Diabetes Screening Diabetes Screening [facility] Start: 10-13-2025 BP Controlled (<130/80) BP Controlled (<130/80) [facility] Start: 10-04-2025 End: 10-04-2025 Patient encounter procedure 10/04/2025 8:00 AM EDT Office Visit OB/Gynecology [address] [place], [place] [id number] Juan José Cheema MD [address] [place] [address] Annual OB/Gynecology Comment on above: Annual Start: 09-30-2025 BP Controlled (<130/80) BP Controlled (<130/80) [facility] Start: 09-30-2025 Screening for malignant neoplasm of breast Mammogram Screening [facility] Start: 09-30-2025 Screening for malignant neoplasm of cervix Cervical Cancer Screening [facility] Start: 09-23-2025 Screening for malignant neoplasm of lung Lung Cancer Screening [facility] Start: 09-02-2025 BP Controlled (<130/80) BP Controlled (<130/80) [facility] Start: 07-17-2025 DIABETES SCREEN DIABETES SCREEN [facility] Start: 06-15-2025 BP Controlled (<130/80) BP Controlled (<130/80) [facility] Start: 05-03-2025 End: 05-03-2025 Patient encounter procedure 05/03/2025 10:30 AM EDT Infusion [facility] [address] [place] [address] /// relcast [facility] [place] Comment on above: /// relcast Start: 04-15-2025 End: 04-15-2025 ambulatory 04/15/2025 11:00 AM EDT Infusion Center Hematology/Oncology [address] [place] [address] 2ND Hematology/Oncology Comment on above: 2ND Start: 03-29-2025 Influenza vaccination [facility] Start: 03-19-2025 End: 03-19-2025 ambulatory 03/19/2025 11:20 AM EDT Visit (SP) Office Hematology/Oncology [address] [place] [address] Josh Bennett DO [address] [place] [address] OV/03/02 BX AT [facility]* Hematology/Oncology Comment on above: OV/03/02 BX AT [facility]* Start: 03-18-2025 End: 03-18-2025 ambulatory 03/18/2025 10:30 AM EDT Infusion Center Hematology/Oncology [address] [place] [address] 2ND Hematology/Oncology Comment on above: 2ND Start: 03-05-2025 DIABETES SCREEN DIABETES SCREEN [facility] Start: 02-18-2025 End: 02-18-2025 ambulatory Hematology/Oncology Comment on above: 2ND pt requested date/ti me Start: 02-04-2025 End: 02-04-2025 ambulatory 02/04/2025 10:00 AM EDT Infusion Center Hematology/Oncology [address] [place] [address] 2ND Hematology/Oncology Comment on above: 2ND Start: 02-01-2025 End: 02-01-2025 Patient encounter procedure 02/01/2025 11:00 AM EDT Appointment Radiology [address] [place] [address] Malignant neoplasm of anus (HCC) [C21.0] Radiology Comment on above: Malignant neoplasm of anus (HCC) [C21.0] Start: 02-01-2025 End: 02-01-2025 ambulatory 02/01/2025 10:45 AM EDT Infusion Center Hematology/Oncology [address] [place] [address] Wstr, [place] [facility] [address] [place] [address] CBC/CMP(PORT)/ACCESS FOR MRI TODAY* Hematology/Oncology Comment on above: CBC/CMP(PORT)/ACCESS FOR MRI TODAY* Start: 01-14-2025 End: 04-15-2025 25-hydroxyvitamin D3 [Mass/volume] in Serum or Plasma [facility] Comment on above: Expected: 01/14/2025, Expires: Start: 01-14-2025 End: 04-15-2025 C reactive protein [Mass/volume] in Serum or Plasma [facility] Comment on above: Expected: 01/14/2025, Expires: Start: 01-14-2025 End: 04-15-2025 Cobalamin (Vitamin B12) [Mass/volume] in Serum or Plasma [facility] Comment on above: Expected: 01/14/2025, Expires: Start: 01-14-2025 End: 04-15-2025 Hepatitis B virus core Ab [Presence] in Serum [facility] Comment on above: Expected: 01/14/2025, Expires: Start: 01-14-2025 End: 04-15-2025 Hepatitis B virus surface Ab [Presence] in Serum [facility] Comment on above: Expected: 01/14/2025, Expires: Start: 01-14-2025 End: 04-15-2025 Hepatitis B virus surface Ag [Presence] in Serum [facility] Comment on above: Expected: 01/14/2025, Expires: Start: 01-07-2025 End: 01-07-2025 ambulatory 01/07/2025 10:30 AM EDT Infusion Center Hematology/Oncology [address] [place] [address] 2ND Hematology/Oncology Comment on above: 2ND Start: 12-27-2024 [facility] Start: 12-11-2024 End: 12-11-2024 ambulatory 12/11/2024 10:30 AM EDT Infusion Center Hematology/Oncology [address] [place] [address] 2ND Hematology/Oncology Comment on above: 2ND Start: 12-10-2024 End: 12-10-2024 ambulatory 12/10/2024 11:00 AM EDT Infusion Center Hematology/Oncology [address] [place] [address] RECLAST/Oder Per JENNIFER Garcia* Hematology/Oncology Comment on above: RECLAST/Oder Per JENNIFER Garcia* Start: 12-07-2024 End: 12-07-2024 Follow-up encounter 12/07/2024 11:30 AM EDT [facility] Radiation Oncology [address] [place] [address] Sidney Joya MD [address] [place] [address] 4WK FOLLOW UP Radiation Oncology Comment on above: 4WK FOLLOW UP Start: 11-30-2024 End: 11-30-2024 Patient encounter procedure [facility]/30[facility] [place] [facility] [address] [place], [place] [id number] Jennifer Arias MD [address] [place], [place] [address] 2mth f/up [facility] [place] [facility] Comment on above: 2mth f/up Start: 11-30-2024 End: 11-30-2024 ambulatory Hematology/Oncology Comment on above: QWK CBC(PICC)DRESSING CHANGE* WK8 OV/(PICC)LAB EAR LY* QWK(SO)CBC(PICC)DRES SING CHANGE* 8WK OV(PICC)LAB ERROL Y* QWK(SO)CBC(PORT)OV T SHIRLEY* 8WK OV(PORT)LAB ERROL Y* Start: 11-27-2024 End: 11-27-2024 ambulatory 11/27/2024 10:00 AM EDT Infusion Center Hematology/Oncology [address] [place] [address] Wstr, [place] [facility] [address] [place] [address] PICC DRESSING CHANGE* Hematology/Oncology Comment on above: PICC DRESSING CHANGE* Start: 11-23-2024 End: 11-23-2024 ambulatory Hematology/Oncology Comment on above: QWK CBC(PICC)DRESSING CHANGE* QWK(SO)CBC(PICC)DRES SING CHANGE* QWK(SO)CBC(PORT)* Start: 11-20-2024 End: 11-20-2024 ambulatory 11/20/2024 10:00 AM EDT Infusion Center Hematology/Oncology [address] [place] [address] Wstr, [place] [facility] [address] [place] [address] PICC DRESSING CHANGE* Hematology/Oncology Comment on above: PICC DRESSING CHANGE* Start: 11-16-2024 End: 11-16-2024 ambulatory Hematology/Oncology Comment on above: QWK CBC(PICC)DRESSING CHANGE* QWK(SO)CBC(PICC)DRES SING CHANGE* QWK(SO)CBC(PORT)* Start: 11-16-2024 End: 11-16-2024 Patient encounter procedure 11/16/2024 9:30 AM EDT Appointment Radiation Oncology [address] [place] [address] CON CHEMO Radiation Oncology Comment on above: CON CHEMO Start: 11-13-2024 End: 11-13-2024 ambulatory 11/13/2024 10:00 AM EDT Infusion Center Hematology/Oncology [address] [place] [address] Wstr, Lab[place] [facility] [address] [place] [address] PICC DRESSING CHANGE* Hematology/Oncology Comment on above: PICC DRESSING CHANGE* Start: 11-13-2024 End: 11-13-2024 Patient encounter procedure 11/13/2024 9:30 AM EDT Appointment Radiation Oncology [address] [place] [address] CON CHEMO Radiation Oncology Comment on above: CON CHEMO Start: 11-12-2024 End: 11-12-2024 Patient encounter procedure 11/12/2024 9:30 AM EDT Appointment Radiation Oncology [address] [place] [address] CON CHEMO Radiation Oncology Comment on above: CON CHEMO Start: 11-11-2024 End: 11-11-2024 Patient encounter procedure 11/11/2024 9:30 AM EDT Appointment Radiation Oncology [address] [place] [address] CON CHEMO Radiation Oncology Comment on above: CON CHEMO Start: 11-10-2024 End: 11-10-2024 Patient encounter procedure Radiation Oncology Comment on above: CON CHEMO Location: W-ON TREAT MENT VISIT Start: 11-09-2024 End: 11-09-2024 ambulatory Hematology/Oncology Comment on above: QWK CBC(PICC)DRESSING CHANGE* WK5 OV/(PICC)LAB EAR LY* QWK(SO)CBC(PICC)DRES SING CHANGE* 5WK OV(PICC)LAB ERROL Y* QWK(SO)CBC(PORT)OV T SHIRLEY* 5WK OV(PORT)LAB ERROL Y* Start: 11-09-2024 End: 11-09-2024 Patient encounter procedure 11/09/2024 9:30 AM EDT Appointment Radiation Oncology [address] [place], [place] [address] CON CHEMO Radiation Oncology Comment on above: CON CHEMO Start: 11-06-2024 End: 11-06-2024 ambulatory 11/06/2024 4:00 PM EDT Infusion Center Hematology/Oncology [address] [place] [address] Wstr, Lab/[place] [facility] [address] [place] [address] D5 DC CADD* Hematology/Oncology Comment on above: D5 DC CADD* Start: 11-06-2024 End: 11-06-2024 Patient encounter procedure 11/06/2024 9:30 AM EDT Appointment Radiation Oncology [address] [place] [address] CON CHEMO Radiation Oncology Comment on above: CON CHEMO Start: 11-05-2024 End: 11-05-2024 Patient encounter procedure OB/Gynecology Comment on above: Comment: General exam/PAP smear CON CHEMO Start: 11-04-2024 End: 11-04-2024 Patient encounter procedure 11/04/2024 9:30 AM EDT Appointment Radiation Oncology [address] [place] [address] CON CHEMO Radiation Oncology Comment on above: CON CHEMO Start: 11-03-2024 End: 11-03-2024 Patient encounter procedure Radiation Oncology Comment on above: CON CHEMO Location: W-ON TREAT MENT VISIT Start: 11-02-2024 DIABETES SCREEN DIABETES SCREEN [facility] Start: 11-02-2024 End: 11-02-2024 ambulatory Hematology/Oncology Comment on above: CBC/CMP(PICC)D29 MITOMYCIN/5FU/LAB EARLY /XRT/AUTH EXP?* (SO)CBC/CMP(S)(PICC) /D29 MITOMYCIN/5FU/XRT/AUTH EXP?* (SO)CBC/CMP(S)(PICC) /D29 5FU/XRT* (SO)CBC/CMP(S)(PORT) /D29 5FU/XRT* Start: 11-02-2024 End: 11-02-2024 Patient encounter procedure 11/02/2024 9:30 AM EDT Appointment Radiation Oncology [address] [place] [id number] CON CHEMO Radiation Oncology Comment on above: CON CHEMO Start: 10-30-2024 End: 10-30-2024 Admission to same day surgery center 10/30/2024 1:00 PM EDT - 10/30/2024 2:30 PM EDT Surgery [facility] Radiology Procedure [id number] [place] [address] Ortega Cardenas MD [address] [place] [address] INSERTION PORT VENOUS ACCESS ADULT [facility] Radiology Procedure Comment on above: INSERTION PORT VENOUS ACCESS ADULT Start: 10-30-2024 End: 10-30-2024 Insj tunneled ctr vad w/subq port age 4 yr/> AV IR Start: 10-30-2024 Subsequent hospital visit by physician 10/30/2024 1:00 PM EDT Hospital Encounter [facility] Radiology Procedure [address] [place] [address] Ortega Cardenas MD [address] [place] [address] Anal cancer (HCC) [C21.0] [facility] Radiology Procedure Comment on above: Anal cancer (HCC) [C21.0] Start: 10-30-2024 End: 10-30-2024 Patient encounter procedure 10/30/2024 9:30 AM EDT Appointment Radiation Oncology [address] [place] [address] CON CHEMO Radiation Oncology Comment on above: CON CHEMO Start: 10-30-2024 End: 10-30-2024 ambulatory Hematology/Oncology Comment on above: PICC DRESSING CHANGE* CBC/CMP(PICC)* LAB EARLY(PICC)/OV-P er nursing staff phone note 10/21* (SO)CBC/CMP(S)(PICC) * Start: 10-30-2024 [facility] Start: 10-29-2024 End: 10-29-2024 Patient encounter procedure 10/29/2024 9:30 AM EDT Appointment Radiation Oncology [address] [place] [address] CON CHEMO Radiation Oncology Comment on above: CON CHEMO Start: 10-28-2024 End: 10-28-2024 Patient encounter procedure 10/28/2024 9:30 AM EDT Appointment Radiation Oncology [address] [place] [address] CON CHEMO Radiation Oncology Comment on above: CON CHEMO Start: 10-27-2024 End: 10-27-2024 Patient encounter procedure Radiation Oncology Comment on above: CON CHEMO Location: W-ON TREAT MENT VISIT Start: 10-26-2024 End: 10-26-2024 ambulatory Hematology/Oncology Comment on above: QWK CBC(PICC)DRESSING CHANGE* WK3 OV/(PICC)LAB EAR LY* QWK(SO)CBC(PICC)DRES SING CHANGE* 3WK OV(PICC)LAB ERROL Y* Start: 10-26-2024 End: 10-26-2024 ambulatory 10/26/2024 9:45 AM EDT Results Only [place] [facility] [address] [place] [address] CBC - No PICC-it is being put in again 10/29/24 [facility] Comment on above: CBC - No PICC-it is being put in again Start: 10-26-2024 End: 10-26-2024 Patient encounter procedure 10/26/2024 9:30 AM EDT Appointment Radiation Oncology [address] [place] [address] CON CHEMO Radiation Oncology Comment on above: CON CHEMO Start: 10-25-2024 [facility] Start: 10-24-2024 [facility] Start: 10-23-2024 End: 10-23-2024 ambulatory 10/23/2024 10:00 AM EDT Infusion Center Hematology/Oncology [address] [place] [address] Wstr, Lab/[place] [facility] [address] [place] [address] PICC DRESSING CHANGE* Hematology/Oncology Comment on above: PICC DRESSING CHANGE* Start: 10-23-2024 End: 10-23-2024 Patient encounter procedure 10/23/2024 9:30 AM EDT Appointment Radiation Oncology [address] [place] [address] CON CHEMO Radiation Oncology Comment on above: CON CHEMO Start: 10-22-2024 End: 10-22-2024 Patient encounter procedure 10/22/2024 9:30 AM EDT Appointment Radiation Oncology [address] [place] [address] CON CHEMO Radiation Oncology Comment on above: CON CHEMO Start: 10-21-2024 End: 10-21-2024 Patient encounter procedure 10/21/2024 9:30 AM EDT Appointment Radiation Oncology [address] [place] [address] CON CHEMO Radiation Oncology Comment on above: CON CHEMO Start: 10-20-2024 End: 10-20-2024 Patient encounter procedure Radiation Oncology Comment on above: CON CHEMO Location: W-ON TREAT MENT VISIT Start: 10-19-2024 End: 10-19-2024 ambulatory Hematology/Oncology Comment on above: QWK CBC(PICC)DRESSING CHANGE* QWK(SO)CBC(PICC)DRES SING CHANGE* Start: 10-19-2024 End: 10-19-2024 Patient encounter procedure 10/19/2024 9:30 AM EDT Appointment Radiation Oncology [address] [place] [address] CON CHEMO Radiation Oncology Comment on above: CON CHEMO Start: 10-16-2024 End: 10-16-2024 ambulatory 10/16/2024 10:00 AM EDT Infusion Center Hematology/Oncology [address] [place] [address] Wstr, Lab[place] [facility] [address] [place] [address] PICC DRESSING CHANGE* Hematology/Oncology Comment on above: PICC DRESSING CHANGE* Start: 10-16-2024 End: 10-16-2024 Patient encounter procedure 10/16/2024 9:30 AM EDT Appointment Radiation Oncology [address] [place] [address] CON CHEMO Radiation Oncology Comment on above: CON CHEMO Start: 10-15-2024 End: 10-15-2024 Patient encounter procedure 10/15/2024 9:30 AM EDT Appointment Radiation Oncology [address] [place] [address] CON CHEMO Radiation Oncology Comment on above: CON CHEMO Start: 10-14-2024 End: 10-14-2024 Patient encounter procedure 10/14/2024 9:30 AM EDT Appointment Radiation Oncology [address] [place] [address] CON CHEMO Radiation Oncology Comment on above: CON CHEMO Start: 10-13-2024 End: 10-13-2024 Patient encounter procedure Radiation Oncology Comment on above: CON CHEMO Location: W-ON TREAT MENT VISIT Start: 10-12-2024 End: 10-12-2024 ambulatory Hematology/Oncology Comment on above: QWK CBC(PICC)DRESSING CHANGE* QWK(SO)CBC(PICC)DRES SING CHANGE* QWK(SO)CBC(PICC) Start: 10-12-2024 End: 10-12-2024 Patient encounter procedure 10/12/2024 9:30 AM EDT Appointment Radiation Oncology [address] [place] [address] CON CHEMO Radiation Oncology Comment on above: CON CHEMO Start: 10-09-2024 End: 10-09-2024 ambulatory Hematology/Oncology Comment on above: D5 DC CADD* PICC DRESSING CHANGE D5 DC CADD* Start: 10-09-2024 End: 10-09-2024 Patient encounter procedure 10/09/2024 9:30 AM EDT Appointment Radiation Oncology [address] [place] [address] CON CHEMO Radiation Oncology Comment on above: CON CHEMO Start: 10-08-2024 End: 10-08-2024 Patient encounter procedure 10/08/2024 9:30 AM EDT Appointment Radiation Oncology [address] [place] [address] CON CHEMO Radiation Oncology Comment on above: CON CHEMO Start: 10-07-2024 End: 10-07-2024 Patient encounter procedure 10/07/2024 9:30 AM EDT Appointment Radiation Oncology [address] [place] [address] CON CHEMO Radiation Oncology Comment on above: CON CHEMO Start: 10-06-2024 End: 10-06-2024 Patient encounter procedure 10/06/2024 11:30 AM EDT Appointment Radiation Oncology [address] [place] [address] Sidney Joya MD [address] [place] [address] conc chemo Radiation Oncology Comment on above: conc chemo Start: 10-06-2024 End: 10-06-2024 Patient encounter procedure Radiation Oncology Comment on above: CON CHEMO Location: W-ON TREAT MENT VISIT Start: 10-06-2024 End: 10-06-2024 ambulatory 10/06/2024 8:45 AM EDT Results Only Rigoberto Lizwn [facility] [address] [place] [address] Rigobertomaninder Lizwn [facility] Start: 10-05-2024 End: 10-05-2024 Patient encounter procedure 10/05/2024 11:00 AM EDT Appointment Radiation Oncology [address] [place] [address] Sidney Joya MD [address] [place], [place] [id number] CON CHEMO AT 915 WANTS 10 Radiation Oncology Comment on above: CON CHEMO AT 915 WANTS 10 Start: 10-05-2024 End: 10-05-2024 ambulatory Hematology/Oncology Comment on above: CBC/CMP(PICC)DRESSING CHANGE/STRAIGHTBAC K START QMO D1 MITOMYCIN/5FU/LAB EARLY/XRT/AUTH EXP?* CBC/CMP(PICC)DRESSIN G CHANGE/START QMO D1 MITOMYCIN/5FU/LAB EARLY/XRT/AUTH EXP?* (SO)CBC/CMP(S)(PICC) DRESSING CHANGE/START Start: 10-01-2024 End: 10-01-2024 Patient encounter procedure 10/01/2024 11:10 AM EST Office Visit OB/Gynecology [address] [place] [address] Juan José Cheema MD [address] [place] [address] Comment: General exam/PAP smear OB/Gynecology Comment on above: Comment: General exam/PAP smear Start: 09-30-2024 End: 09-30-2024 Patient encounter procedure 09/30/2024 9:10 AM EST Office Visit OB/Gynecology [address] [place], [place] [id number] Juan José Cheema MD [address] [place] [id number] Comment: General exam/PAP smear-Okay to take this spot per Dr. Cheema OB/Gynecology Comment on above: Comment: General exam/PAP smear-Okay to take this spot per Dr. Cheema Start: 09-29-2024 End: 09-29-2024 Nursing evaluation of patient and report 09/29/2024 1:30 PM EST Nurse Visit Radiation Oncology [address] [place], [place] [id number] Wstr, Nurse Radt [facility] [address] [place] [id number] consent at 1245 Radiation Oncology Comment on above: consent at 1245 Start: 09-29-2024 End: 09-29-2024 Patient encounter procedure [facility] General Rheumatology and Arthritis Comment on above: 4 mo f/up post Sarah. pe consent at 1245. ful l bladder. conc chemo. marker? Start: 09-25-2024 End: 09-25-2024 ambulatory 09/25/2024 1:30 PM EST [facility] Hematology/Oncology [address] [place] [address] Wstr, [employer] [facility] [address] [place] [id number] CHEMO EDUCATION - ? Hematology/Oncology Comment on above: CHEMO EDUCATION - ? Start: 09-24-2024 End: 09-25-2024 [facility] Start: 09-23-2024 End: 09-23-2024 Patient encounter procedure 09/23/2024 3:20 PM EST Appointment Cat Scan [address] [place] [id number] Dx: Anal cancer (HCC) [C21.0] Cat Scan Comment on above: Dx: Anal cancer (HCC) [C21.0] Start: 09-23-2024 Subsequent hospital visit by physician 09/23/2024 2:30 PM EST Hospital Encounter Radiology [address] [place] [address] Anal cancer (HCC) [C21.0] Radiology Comment on above: Anal cancer (HCC) [C21.0] Start: 09-23-2024 End: 09-23-2024 Patient encounter procedure Radiology Comment on above: Dx: Anal cancer (HCC) [C21.0] Start: 09-18-2024 End: 09-18-2024 Patient encounter procedure 09/18/2024 10:00 AM EST Office Visit [facility] General Rheumatology and Arthritis [address] [facility] [address] [place], [place] [address] Jennifer Arias MD [address] [facility] [address] [place] [address] 4 mo f/up post Sarah. pe [facility] General Rheumatology and Arthritis Comment on above: 4 mo f/up post Sarah. pe Start: 09-17-2024 End: 09-17-2024 Patient encounter procedure 09/17/2024 10:30 AM EST Office Visit Radiation Oncology [address] [place] [address] Sidney Joya MD [address] [place] [address] Anal cancer (HCC) [C21.0] Radiation Oncology Comment on above: Anal cancer (HCC) [C21.0] Start: 09-15-2024 End: 09-15-2024 ambulatory 09/15/2024 3:00 PM EST Visit (SP) Office Hematology/Oncology [address] [place] [address] Josh Bennett DO [address] [place] [address] Patient requested this date/time-EST COMPLEX, SEEN HERE FOR DIFFERENT DIAGNOSIS/SQUAMOUS CELL CARCINOMA PERIANAL/REF.KENYA MESSINA* Hematology/Oncology Comment on above: Patient requested this date/time-EST COM PLEX, SEEN HERE FOR DIFFERENT DIAGNOSIS/SQUAMOUS CELL CARCINOMA PERIANAL/REF.KENYA MESSINA* Start: 09-15-2024 End: 12-15-2024 Chronic hepatitis differentiation between hepatitis B and C virus panel - Serum or Plasma HEP REMOTE PANEL BL Lab Routine Anal cancer (HCC) Expected: 09/15/2024, Expires: 12/15/2024 [facility] Work Phone: Comment on above: Expected: 09/15/2024, Expires: Start: 09-15-2024 End: 12-15-2024 DPYD/UGT1A1 GENOTYPING PANEL DPYD/UGT1A1 GENOTYPING PANEL Lab Routine Anal cancer (HCC) Expected: 09/15/2024, Expires: 12/15/2024 [facility] Comment on above: Expected: 09/15/2024, Expires: Start: 09-15-2024 End: 12-15-2024 HIV 1+2 Ab [Presence] in Serum or Plasma by Immunoassay HIV 1/2 COMBO WITH REFLEX TO DIFFERENTIATION Lab Routine Anal cancer (HCC) Expected: 09/15/2024, Expires: 12/15/2024 [facility] Comment on above: Expected: 09/15/2024, Expires: Start: 09-03-2024 Patient discharge [facility] Start: 09-03-2024 [facility] Start: 09-02-2024 End: 09-03-2024 [facility] Start: 09-02-2024 Following clinical pathway protocol [facility] Start: 09-02-2024 Ambulation without limitation [facility] Start: 09-02-2024 Assessment of risk of venous thromboembolism [facility] Start: 09-02-2024 Catheterization of vein [facility] Start: 02-05-2025 Insertion of catheter into peripheral vein [facility] Start: 09-02-2024 Measuring intake and output [facility] Start: 09-02-2024 Providing care according to standard [facility] Start: 09-02-2024 Admission procedure [facility] Start: 09-02-2024 Anesthesia anorectal procedure ANESTH ANORECTAL SURGERY [facility] Start: 09-02-2024 Anoscopy w/bx single/multiple ANOSCOPY AND BIOPSY [facility] Start: 09-02-2024 I&d intramural im/absc transanal anes INCISION OF RECTAL ABSCESS [facility] Start: 09-02-2024 Patient referral to dietitian [facility] Start: 09-02-2024 [facility] Start: 08-20-2024 End: 08-20-[address] [facility] Comment on above: *orencia Q4wks Osteoporosis, unspec ified osteoporosis type, unspecified pathological fracture presence [M81.0] Start: 08-20-2024 End: 08-20-2024 ambulatory Hematology/Oncology Comment on above: 2 MO OV/LABS 08/17* CBC/IRON STUDIES* Start: 08-19-2024 End: 08-19-2024 ambulatory 08/19/2024 9:30 AM EST Visit (SP) Office Hematology/Oncology [address] [place] [address] Judi Portillo [address] [address] 2 MO OV/LABS 08/17* Hematology/Oncology Comment on above: 2 MO OV/LABS 08/17* Start: 08-17-2024 End: 08-17-2024 ambulatory 08/17/2024 9:00 AM EST Results Only Rigoberto March [facility] [address] [place] [address] CBC[facility]IRON STUDIES* [facility] Comment on above: CBC/IRON STUDIES* Start: 08-13-2024 End: 08-13-2024 Patient encounter procedure 08/13/2024 1:30 PM EST Infusion [facility] [address] [place] [address] *orencia Q4wks + labs 200C [facility] Comment on above: *orencia Q4wks + labs 200C Start: 07-29-2024 Advance Directive Discussion Advance Directive Discussion [facility] Start: 07-29-2024 Medicare Advantage Annual Wellness Visit Medicare Advantage Annual Wellness Visit [facility] Start: 07-23-2024 End: 07-23-2024 Patient encounter procedure 07/23/2024 10:30 AM EST [facility] [address] [place] [address] *orencia Q4wks [facility] Comment on above: *orencia Q4wks Start: 07-16-2024 End: 07-16-2024 Patient encounter procedure 07/16/2024 1:30 PM EST [facility] [address] [place] [address] *orencia Q4wks + labs 200C [facility] Comment on above: *orencia Q4wks + labs 200C Start: 07-15-2024 End: 07-15-2024 Patient encounter procedure 07/15/2024 10:00 AM EST [facility] [address] [place] [address] /// orencia Q4wks [facility] Comment on above: /// orencia Q4wks Start: 07-10-2024 Screening for osteoporosis Bone Density Screening [facility] Start: 07-10-2024 End: 07-10-2024 ambulatory 07/10/2024 10:00 AM EST Infusion Center Hematology/Oncology [address] [place] [address] 2nd Hematology/Oncology Comment on above: 2nd Start: 07-08-2024 End: 07-08-2024 ambulatory 07/08/2024 9:30 AM EST Infusion Center Hematology/Oncology [address] [place] [address] 2nd Hematology/Oncology Comment on above: 2nd Start: 07-06-2024 End: 07-06-2024 ambulatory 07/06/2024 1:30 PM EST Infusion Center Hematology/Oncology [address] [place] [address] 2nd Hematology/Oncology Comment on above: 2nd Start: 07-03-2024 End: 07-03-2024 ambulatory 07/03/2024 10:00 AM EST Infusion Center Hematology/Oncology [address] [place] [address] START IRON SUCROSE/D1-5/AUTH EXP ?* Hematology/Oncology Comment on above: START IRON SUCROSE/D1-5/AUTH EXP ?* Start: 07-02-2024 End: 07-02-2024 ambulatory 07/02/2024 8:30 AM EST Infusion Center Hematology/Oncology [address] [place] [address] 2nd Hematology/Oncology Comment on above: 2nd Start: 07-01-2024 End: 07-01-2024 ambulatory 07/01/2024 10:00 AM EST Infusion Center Hematology/Oncology [address] [place] [address] START IRON SUCROSE/D1-5/AUTH EXP ?* Hematology/Oncology Comment on above: START IRON SUCROSE/D1-5/AUTH EXP ?* Start: 06-29-2024 End: 06-29-2024 ambulatory 06/29/2024 9:00 AM EST Infusion Center Hematology/Oncology [address] [place] [address] START IRON SUCROSE/D1-5/AUTH EXP ?* Hematology/Oncology Comment on above: START IRON SUCROSE/D1-5/AUTH EXP ?* Start: 06-26-2024 End: 06-26-2024 ambulatory 06/26/2024 8:30 AM EST Infusion Center Hematology/Oncology [address] [place] [address] START IRON SUCROSE/D1-5/AUTH EXP ?* Hematology/Oncology Comment on above: START IRON SUCROSE/D1-5/AUTH EXP ?* Start: 06-24-2024 End: 06-24-2024 Patient encounter procedure 06/24/2024 10:30 AM EST Infusion Center [facility] [address] [place] [address] *orencia Q4wks [facility] Comment on above: *orencia Q4wks Start: 06-22-2024 End: 06-22-2024 ambulatory 06/22/2024 9:30 AM EST Infusion Center Hematology/Oncology [address] [place] [address] START IRON SUCROSE/D1-5/AUTH EXP ?* Hematology/Oncology Comment on above: START IRON SUCROSE/D1-5/AUTH EXP ?* Start: 06-18-2024 End: 06-18-2024 Patient encounter procedure 06/18/2024 1:30 PM EST Infusion Center [facility] [address] [place] [place] [address] *orencia Q4wks + labs 200C [facility] Comment on above: *orencia Q4wks + labs 200C Start: 06-18-2024 End: 06-18-2024 ambulatory 06/18/2024 10:00 AM [facility] Infusion Center Hematology/Oncology [address] [place] [address] 2ND Hematology/Oncology Comment on above: 2ND Start: 06-17-2024 End: 06-17-2024 Patient encounter procedure 06/17/2024 10:00 AM EST Infusion Center [facility] [address] [place] [place] [address] /// orencia Q4wks [facility] Comment on above: /// orencia Q4wks Start: 06-15-2024 End: 09-14-2024 Ferritin [Mass/volume] in Serum or Plasma [facility] Comment on above: Expected: 06/15/2024, Expires: Start: 06-15-2024 End: 09-14-2024 Iron and Iron binding capacity panel - Serum or Plasma [facility] Work Phone: Comment on above: Expected: 06/15/2024, Expires: Start: 06-15-2024 End: 06-15-2024 Patient encounter procedure 06/15/2024 1:30 PM EST Visit (SP) Office Hematology/Oncology [address] [place], [place] [id number] Josh Bennett DO [address] [place] [address] (First open appointment)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/Iron deficiency anemia, unspecified iron deficiency anemia type [D50.9]/Sarah Pearson PA-C* Hematology/Oncology Comment on above: (First open appointment)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/Iron deficien cy anemia, unspecified iron deficiency anemia type [D50.9]/Sarah Pearson PA-C* Start: 05-28-2024 End: 05-28-2024 Patient encounter procedure 05/28/2024 10:30 AM EDT Infusion Center [facility] [address] [place] [address] *orencia Q4wks [facility] [place] Comment on above: *orencia Q4wks Start: 05-20-2024 End: 05-20-2024 Patient encounter procedure 05/20/2024 10:00 AM EDT Infusion Center [facility] [address] [place] [address] /// orencia Q4wks [facility] [place] Comment on above: /// orencia Q4wks Start: 05-19-2024 DIABETES SCREEN DIABETES SCREEN [facility] Start: 05-14-2024 End: 05-14-2024 Patient encounter procedure 05/14/2024 11:40 AM EDT Office Visit [facility] Rhe[facility]ology [facility] [address] [facility] [address] [place] [address] Jennifer Arias MD [address] [facility] [address] [place] [address] Oct end in office [facility] Rhe[facility]ology [facility] Arth[facility] Comment on above: Oct end in office Start: 05-06-2024 End: 05-06-2024 Patient encounter procedure 05/06/2024 10:30 AM EDT Infusion Center [facility] [address] [place] [address] orencia [facility] [place] Comment on above: orencia Start: 04-30-2024 End: 04-30-2024 Patient encounter procedure [facility] [place] Comment on above: //// reclast NEW LOCATION //// reclast + Orenc ia * reclast + Orencia Start: 04-22-2024 End: 04-22-2024 Patient encounter procedure 04/22/2024 10:30 AM EDT Infusion Center [facility] [place] [address] [place] [address] *orencia Q4wks [facility] [place] Comment on above: *orencia Q4wks Start: 2024 Advance Directive Discussion Advance Directive Discussion [facility] Start: 2024 PNEUMOCOCCAL (4 - PPSV23 if available, else PCV20) PNEUMOCOCCAL (4 - PPSV23 if available, else PCV20) [facility] Start: 2024 PNEUMOCOCCAL (4 - PPSV23 or PCV20) PNEUMOCOCCAL (4 - PPSV23 or PCV20) [facility] Start: 2024 Pneumococcal vaccination [facility] Start: 2024 Pneumococcal Vaccine: 65+ (4 of 4 - PPSV23 or PCV20) Pneumococcal Vaccine: 65+ (4 of 4 - PPSV23 or PCV20) [facility] Start: 2024 End: 2024 Patient encounter procedure 2024 10:30 AM EDT Infusion Center [facility] [address] [place] [address] orencia [facility] [place] Comment on above: orencia Start: 09-01-2024 Influenza vaccination [facility] Start: 03-25-2024 End: 03-25-2024 Patient encounter procedure 03/25/2024 10:00 AM EDT [facility] [address] [place] [address] *orencia Q4wks [facility] Comment on above: *orencia Q4wks Start: 03-11-2024 Pneumococcal Vaccine: 50+ (4 of 4 - PCV20 or PCV21) Pneumococcal Vaccine: 50+ (4 of 4 - PCV20 or PCV21) [facility] Start: 03-11-2024 Urine microalbumin profile [facility] Start: 03-11-2024 End: 03-11-2024 Patient encounter procedure 03/11/2024 10:30 AM EDT Infusion Center [facility] [address] [place] [address] orencia [facility] Comment on above: orencia Start: 03-03-2024 End: 03-03-2024 Patient encounter procedure 03/03/2024 3:20 PM EDT [facility] [address] [place] [address] Sarah Pearson PA-C [address] [place] [address] Oct end in office [facility]ology [facility] Ar[facility] Comment on above: Apr end in office Start: 02-26-2024 End: 02-26-2024 Patient encounter procedure 02/26/2024 10:00 AM EDT [facility] [address] [place] [address] *orencia Q4wks [facility] Comment on above: *orencia Q4wks Start: 02-25-2024 End: 02-25-2024 Patient encounter procedure 02/25/2024 9:40 AM EDT [facility] [address] [place] [address] Sarah Pearson PA-C [address] [place] [address] Oct end in office [facility] Comment on above: Oct end in office Start: 02-12-2024 End: 02-12-2024 Patient encounter procedure 02/12/2024 10:30 AM EDT [facility] [address] [place] [address] [facility] Comment on above: orencia Start: 01-29-2024 End: 01-29-2024 Patient encounter procedure 01/29/2024 10:00 AM EDT [facility] [address] [place] [address] *orencia Q4wks [facility] Comment on above: *orencia Q4wks Start: 01-15-2024 End: 01-15-2024 Patient encounter procedure 01/15/2024 10:30 AM EDT [facility] [address] [place] [address] [facility] Comment on above: orencia Start: 12-18-2023 End: 12-18-2023 Patient encounter procedure 12/18/2023 10:30 AM EDT [facility] [address] [place] [address] [facility] Comment on above: orencia Start: 11-21-2023 End: 11-21-2023 Patient encounter procedure 11/21/2023 11:00 AM EDT Office Visit [facility]ology [facility] [address] [facility] [address] [place] [address] Jennifer Arias MD [address] [facility] [address] [place] [address] Return in about 6 months (around 11/20/2023) for RA, Dr. Arias. [facility] [place] [facility] Comment on above: Return in about 6 months (around 11/20/19) for RA, Dr. Arias. Start: 11-19-2023 Lipid 1996 panel - Serum or Plasma Lipid Screening [facility] Start: 11-19-2023 Lipid panel Lipid Screening [facility] Start: 11-19-2023 LIPID SCREEN LIPID SCREEN [facility] Start: 10-19-2023 [facility] Start: 10-19-2023 Incentive spirometry [facility] Start: 09-06-2023 Elastase.pancreatic [Presence] in Stool [facility] Start: 09-06-2023 Giardia lamblia Ag [Presence] in Stool by Immunoassay [facility] Start: 09-06-2023 Procedure [facility] Start: 05-17-2023 ANNUAL PCP TEAM CHRONIC DISEASE VISIT ANNUAL PCP TEAM CHRONIC DISEASE VISIT [facility] Start: 04-25-2023 End: 04-23-2024 BLOOD TB SCREEN, INCUBATED [facility] Work Phone: Comment on above: Expected: 04/25/2023, Expires: 4 Start: 04-25-2023 End: 06-25-2023 Chronic hepatitis differentiation between hepatitis B and C virus panel - Serum or Plasma [facility] Work Phone: Comment on above: Expected: 04/25/2023, Expires: 3 Start: 03-29-2023 Influenza vaccination [facility] Start: 02-06-2023 HPV TESTING HPV TESTING [facility] Start: 02-06-2023 PAP TESTING PAP TESTING [facility] Start: 02-06-2023 Screening for malignant neoplasm of cervix [facility] Start: 01-24-2023 Patient discharge [facility] Start: 01-23-2023 Following clinical pathway protocol [facility] Start: 01-23-2023 Application of intermittent pneumatic compression device [facility] Start: 01-23-2023 Provision of overbed trapeze [facility] Start: 01-23-2023 Recommendation to continue with treatment [facility] Start: 01-23-2023 Admission procedure [facility] Start: 01-23-2023 Ambulation therapy management [facility] Start: 01-23-2023 Application of device [facility] Start: 01-23-2023 Assessment of risk of venous thromboembolism [facility] Start: 01-23-2023 Catheterization of vein [facility] Start: 01-23-2023 Exercises [facility] Start: 01-23-2023 Following clinical pathway protocol [facility] Start: 01-23-2023 Incentive spirometry [facility] Start: 01-23-2023 Introduction of urinary catheter [facility] Start: 01-23-2023 Measuring intake and output [facility] Start: 01-23-2023 Neurovascular assessment [facility] Start: 01-23-2023 Patient education [facility] Start: 01-23-2023 Procedure discontinued [facility] Start: 01-23-2023 Provision of activity privileges [facility] Start: 01-23-2023 Referral to occupational therapist [facility] Start: 01-23-2023 Referral to service [facility] Start: 01-23-2023 Vital signs measurements [facility] Start: 01-23-2023 Wound care [facility] Start: 01-23-2023 [facility] Start: 12-05-2022 Protein measurement [facility] Start: 11-06-2022 Colonoscopy w/biopsy single/multiple COLONOSCOPY AND BIOPSY [facility] Start: 11-06-2022 Egd transoral biopsy single/multiple EGD BIOPSY SINGLE/MULTIPLE [facility] Start: 11-06-2022 Patient discharge [facility] Start: 10-18-2022 End: 12-18-2022 25-hydroxyvitamin D3 [Mass/volume] in Serum or Plasma [facility] Work Phone: Comment on above: Expected: 10/18/2022, Expires: Start: 10-18-2022 End: 12-18-2022 C reactive protein [Mass/volume] in Serum or Plasma [facility] Work Phone: Comment on above: Expected: 10/18/2022, Expires: 3 Start: 10-18-2022 End: 12-18-2022 Comprehensive metabolic 2000 panel - Serum or Plasma [facility] Work Phone: Comment on above: Expected: 10/18/2022, Expires: 3 Start: 10-18-2022 End: 12-18-2022 Erythrocyte sedimentation rate [facility] Work Phone: Comment on above: Expected: 10/18/2022, Expires: 3 Start: 10-18-2022 End: 12-18-2022 Parathyrin.intact [Mass/volume] in Serum or Plasma [facility] Work Phone: Comment on above: Expected: 10/18/2022, Expires: 3 Start: 10-06-2022 ANNUAL PCP TEAM CHRONIC DISEASE VISIT ANNUAL PCP TEAM CHRONIC DISEASE VISIT [facility] Start: 10-06-2022 BP CONTROLLED (<130/80) BP CONTROLLED (<130/80) [facility] Start: 03-29-2022 Influenza vaccination INFLUENZA (#1) [facility] Start: 01-23-2022 End: 03-25-2022 Hemoglobin A1c in Blood HGB A1C Lab Routine Class 1 obesity with body mass index (BMI) of 34.0 to 34.9 in adult Expected: 01/23/2022, Expires: 03/25/2022 [facility] Work Phone: Comment on above: Expected: 01/23/2022, Expires: 2 Start: 01-23-2022 End: 03-25-2022 Lipid 1996 panel - Serum or Plasma LIPID PANEL BASIC Lab Routine Hyperlipidemia with target LDL less than 130 Expected: 01/23/2022, Expires: 03/25/2022 [facility] Work Phone: Comment on above: Expected: 01/23/2022, Expires: 2 Start: 01-23-2022 End: 03-25-2022 SCHEDULE LAB TESTING SCHEDULE LAB TESTING Lab Routine Expected: 01/23/2022, Expires: 03/25/2022 [facility] Work Phone: Comment on above: Expected: 01/23/2022, Expires: 2 Start: 03-03-2021 Influenza vaccination LUNG CANCER SCREENING [facility] Start: 03-03-2021 Screening for malignant neoplasm of lung Lung Cancer Screening [facility] Start: 2019 RSV Vaccine (1 - 1-dose 60+ series) RSV Vaccine (1 - 1-dose 60+ series) [facility] Start: 2019 RSV Vaccine (1 - Risk 60-74 years 1-dose series) RSV Vaccine (1 - Risk 60-74 years 1-dose series) [facility] Start: 02-06-2019 Screening for malignant neoplasm of cervix Cervical Cancer Screening [facility] Start: 12-10-2018 Mammography [facility] Start: 12-10-2018 Screening for malignant neoplasm of breast Mammogram Screening [facility] Start: 2009 SHINGRIX VACCINE (1 of 2) SHINGRIX VACCINE (1 of 2) [facility] Start: 2004 COLOGUARD (FIT-DNA) COLOGUARD (FIT-DNA) [facility] Start: [address] COLONOGRAPHY [facility] Start: 2004 FECAL OCCULT BLOOD FECAL OCCULT BLOOD [facility] Start: 2004 Screening for malignant neoplasm of colon [facility] Start: 2004 SIGMOIDOSCOPY SIGMOIDOSCOPY [facility] Start: 1989 Zoledronic acid therapy ALPHA-1 ANTITRYPSIN DEFICIENCY SCREENING [facility] Start: 1978 SHINGRIX VACCINE (1 of 2) SHINGRIX VACCINE (1 of 2) [facility] Start: 1977 Anxiety Screening Anxiety Screening [facility] Start: 1977 BP CONTROLLED (<130/80) BP CONTROLLED (<130/80) [facility] Start: 1977 HIV SCREENING HIV SCREENING [facility] Start: 1977 HIV screening HIV Screening [facility] Start: 1971 COVID-19 VACCINE (1) COVID-19 VACCINE (1) [facility] Start: 1964 COVID-19 VACCINE (#1) COVID-19 VACCINE (#1) [facility] Start: 1959 COVID-19 VACCINE (#1) COVID-19 VACCINE (#1) [facility] End: 10-25-2023 25-hydroxyvitamin D3 [Mass/volume] in Serum or Plasma VITAMIN D 25 HYDROXY Lab Routine Rheumatoid arthritis involving multiple sites, unspecified whether rheumatoid factor present (HCC) Vitamin D deficiency Every 6 months for 2 Occurrences starting 10/25/2022 until 10/25/2023 [facility] Work Phone: Comment on above: Every 6 months for 2 Occurrences startin g 10/25/2022 until 10/25/2023 C reactive protein [Mass/volume] in Serum or Plasma C-REACTIVE PROTEIN (CRP) Lab Routine Rheumatoid arthritis involving multiple sites with positive rheumatoid factor (HCC) 11/02/2021 10:51 AM EDT [facility] Work Phone: End: 10-24-2023 C reactive protein [Mass/volume] in Serum or Plasma C-REACTIVE PROTEIN (CRP) Lab Routine Rheumatoid arthritis involving multiple sites, unspecified whether rheumatoid factor present (HCC) Every 3 months for 4 Occurrences starting 10/25/2022 until 10/24/2023 [facility] Work Phone: Comment on above: Every 3 months for 4 Occurrences startin g 10/25/2022 until 10/24/2023 End: 10-24-2023 CBC panel - Blood by Automated count CBC Lab Routine Rheumatoid arthritis involving multiple sites, unspecified whether rheumatoid factor present (HCC) Every 3 months for 4 Occurrences starting 10/25/2022 until 10/24/2023 [facility] Work Phone: Comment on above: Every 3 months for 4 Occurrences startin g 10/25/2022 until 10/24/2023 CBC W Auto Different ial panel - Blood CBC + DIFF Lab Routine Rheumatoid arthritis involving multiple sites with positive rheumatoid factor (HCC) 11/02/2021 10:51 AM EDT [facility] Work Phone: End: 11-19-2024 CBC W Auto Differential panel - Blood COMPLETE BLOOD COUNT AND DIFFERENTIAL Lab Routine Rheumatoid arthritis involving multiple sites with positive rheumatoid factor (HCC) Every 3 months for 4 Occurrences starting 11/20/2023 until 11/19/2024, 1 completed [facility] Work Phone: Comment on above: Every 3 months for 4 Occurrences startin g 11/20/2023 until 11/19/2024, 1 completed End: 01-28-2025 CBC W Auto Differential panel - Blood COMPLETE BLOOD COUNT AND DIFFERENTIAL Lab Routine Rheumatoid arthritis involving multiple sites with positive rheumatoid factor (HCC) Every 3 months for 4 Occurrences starting 01/29/2024 until 01/28/2025 [facility] Work Phone: Comment on above: Every 3 months for 4 Occurrences startin g 01/29/2024 until 01/28/2025 End: 05-21-2025 CBC W Auto Differential panel - Blood COMPLETE BLOOD COUNT AND DIFFERENTIAL Lab Routine Rheumatoid arthritis involving multiple sites with positive rheumatoid factor (HCC) Every 3 months for 4 Occurrences starting 05/21/2024 until 05/21/2025, 1 completed [facility] Work Phone: Comment on above: Every 3 months for 4 Occurrences startin g 05/21/2024 until 05/21/2025, 1 completed CBC W Auto Different ial panel - Blood [facility] Chronic hepatitis differentiation between hepatitis B and C virus panel - Serum or Plasma HEP REMOTE PANEL BL Lab Routine Anal cancer (HCC) 09/16/2024 12:35 PM EST [facility] Clostridioides diffi cile DNA [Presence] in Unspecified specimen by CORAL with probe detection [facility] Comprehensive metabo lic 2000 panel - Serum or Plasma COMP METABOLIC PANEL Lab Routine Rheumatoid arthritis involving multiple sites with positive rheumatoid factor (HCC) 11/02/2021 10:51 AM EDT [facility] Work Phone: End: 10-24-2023 Comprehensive metabolic 2000 panel - Serum or Plasma COMP METABOLIC PANEL Lab Routine Rheumatoid arthritis involving multiple sites, unspecified whether rheumatoid factor present (HCC) Every 3 months for 4 Occurrences starting 10/25/2022 until 10/24/2023 [facility] Work Phone: Comment on above: Every 3 months for 4 Occurrences startin g 10/25/2022 until 10/24/2023 End: 11-19-2024 Comprehensive metabolic 2000 panel - Serum or Plasma COMPREHENSIVE METABOLIC PANEL Lab Routine Rheumatoid arthritis involving multiple sites with positive rheumatoid factor (HCC) Every 3 months for 4 Occurrences starting 11/20/2023 until 11/19/2024, 1 completed [facility] Comment on above: Every 3 months for 4 Occurrences startin g 11/20/2023 until 11/19/2024, 1 completed End: 01-28-2025 Comprehensive metabolic 2000 panel - Serum or Plasma COMPREHENSIVE METABOLIC PANEL Lab Routine Rheumatoid arthritis involving multiple sites with positive rheumatoid factor (HCC) Every 3 months for 4 Occurrences starting 01/29/2024 until 01/28/2025 [facility] Comment on above: Every 3 months for 4 Occurrences startin g 01/29/2024 until 01/28/2025 End: 05-21-2025 Comprehensive metabolic 2000 panel - Serum or Plasma COMPREHENSIVE METABOLIC PANEL Lab Routine Rheumatoid arthritis involving multiple sites with positive rheumatoid factor (HCC) Every 3 months for 4 Occurrences starting 05/21/2024 until 05/21/2025 [facility] Comment on above: Every 3 months for 4 Occurrences startin g 05/21/2024 until 05/21/2025 Comprehensive metabo lic 2000 panel - Serum or Plasma COMPREHENSIVE METABOLIC PANEL Lab Routine Rheumatoid arthritis involving multiple sites with positive rheumatoid factor (HCC) 05/21/2024 1:31 PM EDT [facility] Comprehensive metabo lic 2000 panel - Serum or Plasma [facility] End: 10-16-2025 CT Chest W contrast IV CT CHEST W IVCON Radiology STAT Anal cancer (HCC) 1 Occurrences starting 09/16/2024 until 10/16/2025 [facility] Work Phone: Comment on above: 1 Occurrences starting 09/16/2024 until 10/16/2025 CT Guidance for radi ation treatment of Unspecified body region CT SIM PLANNING RADIATION ONCOLOGY Radiology Routine Anal cancer (HCC) Ordered: 10/01/2024 [facility] Work Phone: Comment on above: Ordered: 10/01/2024 End: 10-30-2025 DBT Breast - bilateral screening MARIA TERESA SCREENING W CAMER[place] Radiology Routine Encounter for gynecological examination (general) (routine) without abnormal findings Encounter for screening mammogram for breast cancer 1 Occurrences starting 09/30/2024 until 10/30/2025 [facility] Work Phone: Comment on above: 1 Occurrences starting 09/30/2024 until 10/30/2025 DBT Breast - bilater al screening MARIA TERESA SCREENING W [place] Radiology Routine Encounter for gynecological examination (general) (routine) without abnormal findings Encounter for screening mammogram for breast cancer 09/30/2024 10:49 AM [facility] [id number] GENOTYPI NG PANEL DPYD/[id number] GENOTYPING PANEL Lab Routine Anal cancer (HCC) 09/16/2024 12:35 PM [facility] End: 07-26-2023 Dxa bone density study 1/> sites axial skel DXA-AXIAL SKELETON Radiology Routine Localized osteoporosis without current pathological fracture 1 Occurrences starting 06/26/2022 until 07/26/2023 [facility] Work Phone: Comment on above: 1 Occurrences starting 06/26/2022 until 07/26/2023 End: 06-14-2025 DXA Skeletal system.axial Views for bone density DXA-AXIAL SKELETON Radiology Routine Osteoporosis, unspecified osteoporosis type, unspecified pathological fracture presence 1 Occurrences starting 05/15/2024 until 06/14/2025 [facility] Work Phone: Comment on above: 1 Occurrences starting 05/15/2024 until 06/14/2025 DXA Skeletal system. axial Views for bone density DXA-AXIAL SKELETON Radiology Routine Osteoporosis, unspecified osteoporosis type, unspecified pathological fracture presence 08/20/2024 9:45 AM [facility] Work Phone: Elastase, pancreatic (el-1), fecal; quantitative [facility] Erythrocyte sediment ation rate SED RATE WESTERGREN Lab Routine Rheumatoid arthritis involving multiple sites with positive rheumatoid factor ([facility]) 11/02/2021 10:51 AM [facility] Work Phone: Erythrocyte sediment ation rate SED RATE WESTERGREN Lab Routine Rheumatoid arthritis involving multiple sites with positive rheumatoid factor ([facility]) 03/05/2022 1:14 PM [facility] Work Phone: Erythrocyte sediment ation rate SED RATE WESTERGREN Lab Routine Rheumatoid arthritis involving multiple sites with positive rheumatoid factor ([facility]) 07/17/2022 11:28 AM [facility] Work Phone: End: 10-24-2023 Erythrocyte sedimentation rate SED RATE WESTERGREN Lab Routine Rheumatoid arthritis involving multiple sites, unspecified whether rheumatoid factor present ([facility]) Every 3 months for 4 Occurrences starting 10/25/2022 until 10/24/2023 [facility] Work Phone: Comment on above: Every 3 months for 4 Occurrences startin g 10/25/2022 until 10/24/2023 Gastrointestinal pathogens panel - Stool by CORAL with probe detection [facility] Giardia lamblia Ag [Presence] in Stool by Immunoassay [facility] Hepatitis B virus co re Ab [Presence] in Serum HEP B CORE AB TOTAL Lab Routine Rheumatoid arthritis involving multiple sites, unspecified whether rheumatoid factor present (HCC) 04/25/2023 10:33 AM EDT [facility] Work Phone: HIV 1+2 Ab [Presence ] in Serum or Plasma by Immunoassay HIV 1/2 COMBO WITH REFLEX TO DIFFERENTIATION Lab Routine Anal cancer (HCC) 09/16/2024 12:35 PM [facility] Influenza virus A an d B RNA and SARS-CoV-2 (COVID-19) N gene panel - Respiratory specimen by CORAL with probe detection COVID WITH FLUA+B, ROUTINE Microbiology Routine Exposure to 2018 novel coronavirus Ordered: 05/16/2022 [facility] Work Phone: Comment on above: Ordered: 05/16/2022 Lactoferrin [Presenc e] in Stool by Immunoassay [facility] Lactoferrin [Presenc e] in Stool by Immunoassay [facility] Lactoferrin [Presenc e] in Stool by Immunoassay [facility] End: 02-23-2023 MARIA TERESA SCREENING W CAMER[place] MARIA TERESA SCREENING W [place] Radiology Routine Encounter for screening mammogram for breast cancer 1 Occurrences starting 01/24/2022 until 02/23/2023 [facility] Work Phone: Comment on above: 1 Occurrences starting 01/24/2022 until 02/23/2023 End: 10-16-2025 MR Pelvis WO and W contrast IV MRI PELVIS WO/W IVCON Radiology STAT Anal cancer (HCC) 1 Occurrences starting 09/16/2024 until 10/16/2025 [facility] Comment on above: 1 Occurrences starting 09/16/2024 until 10/16/2025 MR Pelvis WO and W contrast IV MRI PELVIS WO/W IVCON Radiology STAT Anal cancer (HCC) 09/23/2024 4:24 PM EST [facility] Work Phone: MR Pelvis WO and W contrast IV MRI PELVIS WO/W IVCON Radiology Routine Malignant neoplasm of anus (HCC) Anal cancer (HCC) 02/01/2025 11:43 AM EDT [facility] Work Phone: MRI of small intestine [facility] Ova and parasites identified in Unspecified specimen by Light microscopy [facility] PAP TEST PAP TEST Lab Stephanie pickens Encounter for screening for human papillomavirus (HPV) Pap smear for cervical cancer screening 09/30/2024 10:46 AM [facility] Patient Education [facility] Work Phone: Patient referral [facility] Work Phone: End: 10-15-2025 PET+CT Guidance for localization of tumor of Skull base to mid-thigh-- W [id number] IV NM PET/CT SKULL-THIGH INITIAL Radiology Routine Anal cancer (HCC) 1 Occurrences starting 09/15/2024 until 10/15/2025 [facility] Comment on above: 1 Occurrences starting 09/15/2024 until 10/15/2025 POST VOID RESIDUAL POST VOID RES IDUAL Procedures Routine Urinary urgency Ordered: 10/21/2024 [facility] Work Phone: Comment on above: Ordered: 10/21/2024 Procedure [facility] Protein measurement [facility] Protein measurement [facility] Protein measurement [facility] Stroke after atrial fibrillation 5 year risk [#] Georgi 2002 IR PORTOCATH PLACEMENT Radiology MORAIMA Anal cancer (HCC) Rheumatoid arthritis involving multiple sites with positive rheumatoid factor (HCC) Ordered: 10/26/2024 [facility] Work Phone: Comment on above: Ordered: 10/26/2024 US Lower extremity vein US LEG V EIN DVT [facility] Vascular Lab STAT Anal cancer (HCC) Right leg pain 09/16/2024 11:36 AM [facility] End: 10-19-2025 US Upper extremity veins US ARM VEIN DVT [facility] Vascular Lab STAT Anal cancer (HCC) PICC (peripherally inserted central catheter) in place Arm swelling 1 Occurrences starting 10/19/2024 until 10/19/2025 [facility] Work Phone: Comment on above: 1 Occurrences starting 10/19/2024 until 10/19/2025 Vitamin B12 measurement [facility] Vitamin D, 25-hydrox y measurement [facility] End: 07-26-2023 XR HIP GENERAL 3V PELV/AP/LAT LEFT XR HIP GENERAL 3V PELV/AP/LAT LEFT Radiology Routine Pain in left hip Fall, initial encounter 1 Occurrences starting 06/26/2022 until 07/26/2023 [facility] Work Phone: Comment on above: 1 Occurrences starting 06/26/2022 until 07/26/2023 End: 06-26-2022 XR HIP GENERAL 3V PELV/AP/LAT LEFT [facility] Work Phone: Comment on above: 1 Occurrences starting 06/26/2022 until 06/26/2022 [facility] Immunizations Immunization Date Immunization Notes Care Provider Fa bebo 08-07-2022 influenza virus vacc ine, unspecified formulation Jennifer Arias MD Work Phone: [facility] 05-01-2021 influenza, injectabl e, quadrivalent, contains preservative Jennifer Arias MD Work Phone: [facility] Work Phone: 06-01-2020 influenza, injectabl e, quadrivalent, contains preservative Jennifer Arias MD Work Phone: [facility] Work Phone: 03-11-2019 pneumococcal polysaccharide vaccine, 23 valent Jennifer Arias MD Work Phone: [facility] Work Phone: 02-09-2019 pneumococcal conjuga te vaccine, 13 valent Jennifer Arias MD Work Phone: [facility] Work Phone: 06-02-2018 influenza, injectabl e, quadrivalent, contains preservative Jennifer Arias MD Work Phone: [facility] Work Phone: 04-16-2017 influenza, injectabl e, quadrivalent, contains preservative Jennifer Arias MD Work Phone: [facility] Work Phone: 07-09-2016 influenza, injectabl e, quadrivalent, contains preservative Jennifer Arias MD Work Phone: [facility] Work Phone: 05-16-2015 influenza, injectabl e, quadrivalent, contains preservative Jennifer Arias MD Work Phone: [facility] 06-03-2014 influenza, seasonal, injectable Jennifer Arias MD Work Phone: [facility] Work Phone: 03-11-2014 pneumococcal polysaccharide vaccine, 23 valent Jennifer Arias MD Work Phone: [facility] Work Phone: 03-11-2014 tetanus toxoid, redu cj diphtheria toxoid, and acellular pertussis vaccine, adsorbed Jennifer Arias MD Work Phone: [facility] Work Phone: 05-12-2012 influenza virus vacc ine, unspecified formulation Jennifer Arias MD Work Phone: [facility] Work Phone: Payers Date Payer Category Payer Self-pay [id number] 2022 Medicare (Managed Care) [facility] DUAL COMPLETE HMO POS SNP [id number] 2022 Unknown [id number] 2020 Medicare UHC MEDICARE UHC DUAL COMPLETE HMO SNP [id number] 2020-Present [phone] [address] [place] [address] Medicare [id number] 2020 Medicare [id number]. [id number] 2019 Medicaid [id number]. [id number]. [id number] 2019 Medicaid [id number] 2015 Unknown [id number] 1959 Unknown [id number] 2.16.840.1.980134.3.579.2. 651 1959 Unknown [id number] 2.16.840.1.480905.3.579.2. 651 1959 Unknown [id number] 2.16.840.1.480513.3.579.2. 651 1959 Unknown [id number] 2.840.1.592796.3.579.2. 651 1959 Unknown [id number] 2.840.1.548877.3.579.2. 65 1959 Unknown [id number] 2.840.1.190507.3.579.2. 65 1959 Unknown [id number] 2.840.1.123307.3.579.2. 65 1959 Unknown [id number] 2.0.1.544772.3.579.2. 64 Medicare [id number] Medicare [id number] Private Health Insurance [id number] Unknown [id number] Unknown [id number] .0.1.210384.3.579.2. 462 Unknown [id number] 2.840.1.546140.3.579.2. 462 Unknown [id number] ..1.128811.3.579.2. 462 Unknown [id number] .840.1.085012.3.579.2. 462 Unknown [id number] 2.840.1.317753.3.579.2. 462 Unknown [id number] 2.840.1.620297.3.579.2. 462 Unknown [id number] 2.840.1.511823.3.579.2. 462 Unknown [id number] 2.840.1.987546.3.579.2. 462 Unknown [id number] 2.16.840.1.324015.3.579.2. 462 Unknown [id number] 2.16.840.1.709054.3.579.2. 462 Unknown [id number] 2.16.840.1.008336.3.579.2. 462 Unknown [id number] 2.16.840.1.942763.3.579.2. 462 Unknown [id number] 2.16.840.1.139201.3.579.2. 462 Unknown [id number] 2.16.840.1.981709.3.579.2. 462 Unknown [id number] 2.840.1.870142.3.579.2. 462 Unknown [id number] 2.16840.1.256192.3.579.2. 462 Unknown [id number] 2.840.1.305877.3.579.2. 462 Unknown [id number] 2.840.1.292662.3.579.2. 462 Unknown [id number] 2.16840.1.509367.3.579.2. 462 Unknown [id number] 2.16.840.1.552034.3.579.2. 462 Unknown [id number] 2.16840.1.812296.3.579.2. 462 Unknown [id number] 2.16840.1.717696.3.579.2. 462 Unknown [id number] 2.16.840.1.435285.3.579.2. 462 Unknown [id number] 2.16.840.1.210161.3.579.2. 462 Unknown [id number] 2.16.840.1.851191.3.579.2. 462 Unknown [id number] 2.16.840.1.501216.3.579.2. 462 Unknown [id number] 2.16840.1.636545.3.579.2. 462 Unknown [id number] 2.16.840.1.914453.3.579.2. 462 Social History Date Type Detail Facility Start: 01-28-2019 End: 09-02-2024 Ex-smoker (finding) [facility] Start: 1960 Sex Assigned At Female A [facility] Start: 01-02-1984 End: 01-01-2015 History of tobacco use Current smoker [facility] Start: 01-02-1984 End: 01-01-2015 History of tobacco use Cigarette Smoker [facility] Start: 02-08-2012 End: 11-20-2023 Cigarettes smoked current (pack per day) - Reported 1 [facility] Start: 02-08-2012 End: 09-02-2024 Tobacco use and exposure Smokeless tobacco non-user [facility] Start: 10-06-2021 End: 11-30-2024 Alcohol intake Current non-drinker of alcohol (finding) [facility] Start: 05-31-2020 End: 05-17-2022 History SDOH Alcohol Frequency 1 [facility] Start: 05-31-2020 History SDOH Alcohol Std Drinks 98 [facility] Start: 05-31-2020 History SDOH Social Connections Phone 5 [facility] Start: 05-31-2020 End: 05-17-2022 History SDOH Social Connections Get Together 2 [facility] Start: 05-31-2020 History SDOH Physica l Activity DPW 0 [facility] Start: 05-31-2020 History SDOH Financial 3 [facility] Start: 06-11-2019 Education 15 [facility] Start: 03-03-2019 End: 05-16-2022 Tobacco Comment ETS: Father in childhood home. Active smoker in current home. [facility] Start: 1960 Sex Assigned At Not on file [facility] Start: 10-21-2021 End: 10-31-2021 Exposure to SARS-CoV-2 (event) Unable to assess [facility] Start: 01-09-2021 End: 06-26-2022 Exposure to SARS-CoV-2 (event) Not sure [facility] Start: 05-06-2022 End: 05-16-2022 Exposure to SARS-CoV-2 (event) Yes [facility] Work Phone: Start: 09-12-2022 End: 10-19-2023 Tobacco smoking status NHIS Unknown if ever smoked [facility] Start: 01-24-2020 None [facility] Start: 01-24-2020 With Family [facility] Start: 12-28-2015 Non-smoker [facility] Start: 05-31-2020 End: 11-20-2023 Social connection and isolation panel [facility] Do you belong to any clubs or organizations such as yarsani groups, unions, fraternal or athletic groups, or school groups? No [facility] Are you now , , , , never or living with a partner? [facility] How often to you hav e a drink containing alcohol? Never [facility] How many standard dr inks containing alcohol do you have on a typical day? Patient refused [facility] How hard is it for y ou to pay for the very basics like food, housing, medical care, and heating Somewhat hard [facility] Do you feel stress - tense, restless, nervous, or anxious, or unable to sleep at night because your mind is troubled all the time - these days [OSQ] Very much [facility] (I/We) worried niko er (my/our) food would run out before (I/we) got money to buy more. Sometimes true [facility] Start: 10-13-2024 End: 10-30-2024 Sex Female (finding) [facility] NEGATED: Highlighted row [facility] NEGATED: Highlighted row Not [facility] Medical Equipment Procedure Code Equipment Code Equipment Original Text Equipment Identifier Dates FDA Start: 08-29-2021 FDA Start: 08-29-2021 FDA Start: 08-29-2021 Mesh Bio-A Synth etic 10x7cm Surgical Reinforcement Hernia Repair - [id number] Start: 05-07-2019 FDA Start: 08-29-2021 FDA Start: 08-29-2021 FDA Start: 08-29-2021 Hip Hemiarthropl asty Unknown 08/29/21 Unknown Unknown FDA Start: 08-29-2021 Hip Hemiarthropl asty Unknown 08/29/21 Unknown Unknown FDA Start: 08-29-2021 Hip Hemiarthropl asty Unknown 08/29/21 Unknown Unknown FDA Start: 08-29-2021 Hip Hemiarthropl asty Unknown 08/29/21 Unknown Unknown FDA Start: 08-29-2021 Hip Hemiarthropl asty Unknown 08/29/21 Unknown Unknown FDA Start: 08-29-2021 Hip Hemiarthropl asty Unknown 08/29/21 Unknown Unknown FDA Start: 08-29-2021 ([id number]) Metal-backed pat babita prosthesis [id number] FDA Start: 01-23-2023 ([id number]) Coated knee femu r prosthesis ()[id number] FDA Start: 01-23-2023 ([id number]) Coated knee tibi a prosthesis ()[id number] FDA Start: 01-23-2023 ([id number]) Tibial insert [id number] FDA Start: 01-23-[address] Plastic 8f Chronoflex Catheter With Kit - [id number] Start: 10-30-2024 Goals Date Patient Goal Desired Activity /State Functional Status Date Assessment Result Facility 09-03-2024 Functional status Ambulates;Bath room Privilege [facility] Work Phone: 01-24-2023 Functional status Chair [facility] Work Phone: 10-02-2021 Functional Status Yani Yony broussard [facility] 05-08-2019 Are you deaf, or do you have serious difficulty hearing No 05/08/2019 5:36 PM EDT Anyi Del Toro RN No [facility] 05-08-2019 Are you blind, or do you have serious difficulty seeing, even when wearing glasses No 05/08/2019 5:36 PM Anyi Herrera RN No [facility] 05-08-2019 Do you have serious difficulty walking or climbing stairs No 05/08/2019 5:36 PM EDT Anyi Del Toro RN No [facility] 05-08-2019 Do you have difficul ty dressing or bathing No 05/08/2019 5:36 PM EDT Anyi Del Toro RN No [facility] 05-08-2019 Because of a physica l, mental, or emotional condition, do you have difficulty doing errands alone such as visiting a physician's office or shopping No 05/08/2019 5:36 PM EDT Aniy Del Toro RN No [facility] Mental Status Date Assessment Result Facility 12-27-2024 Cognitive function Level Of Cons ciousness Awake;Alert;Appropriate;Fol lows Commands [facility] Work Phone: 10-24-2024 Cognitive function Level Of Cons ciousness Awake;Alert;Appropriate;Fol lows Commands [facility] Work Phone: 10-02-2024 Cognitive function Awake;Alert;Appropriat e [facility] Work Phone: 09-03-2024 Cognitive function Voice/Name [facility] Work Phone: 09-03-2024 Cognitive function Cooperative;Anxious [facility] Work Phone: 07-25-2023 Cognitive function Awake;Alert;Appropriat e [facility] Work Phone: 01-24-2023 Cognitive function Level Of Cons ciousness Awake;Alert;Appropriate;Fol lows Commands [facility] Work Phone: 01-23-2023 Cognitive function Appropriate;Cooperativ e [facility] Work Phone: 01-23-2023 Cognitive function Voice/Name [facility] Work Phone: 11-06-2022 Cognitive function Voice/Name [facility] Work Phone: 11-06-2022 Cognitive function Patient Orien tation Person;Place;Time [facility] Work Phone: 05-08-2019 Because of a physica l, mental, or emotional condition, do you have serious difficulty concentrating, remembering, or making decisions No 05/08/2019 5:36 PM EDT Anyi Del Toro RN No [facility] Clinical Notes 11-21-2020 to 02-17-2025 Telephone Encounter - Lawanda Rutherford RN - 02/17/2025 2:17 PM EDTTelephone Encounter - Lawanda Rutherford RN - 02/17/2025 2:17 PM EDTTelephone Encounter - Yvette Cheng - 02/17/2025 11:26 AM EDT Note Date & Type Note Facility 02-17-2025 Telephone encount er Note Nurse spoke to pt and requested she come in sooner if possible. Pt stated she will be here around 1. [facility] 02-17-2025 Miscellaneous Notes Formattin g of this note might be different from the original. Nurse spoke to pt and requested she come in sooner if possible. Pt stated she will be here around 1. This has been scheduled as directed. Yvette Cheng PSS - per patient, please reschedule today's treatment to 02/18 at 2:00 pm. Thank you. documented in this encounter [facility] 02-17-2025 Telephone encount er Note This has been scheduled as directed. Yvette Cheng [facility] 02-17-2025 Telephone encount er Note PSS - per patient, please reschedule today's treatment to 02/18 at 2:00 pm. Thank you. [facility] 02-15-2025 Telephone encount er Note Patient is aware. Nikkie Walter LPN [facility] 02-15-2025 Miscellaneous Notes Formattin g of this note might be different from the original. Patient is aware. Nikkie Walter LPN Yes, follow up with PCP. Delvin Ron APRN.TOBACCO SAMPLER Patient called asking if she could have the following vaccinations: pneumonia RSV shingles flu Hep B Please advise documented in this encounter [facility] 02-15-2025 Telephone encount er Note Yes, follow up with PCP. Delvin Ron APRN.TOBACCO SAMPLER [facility] 02-15-2025 Telephone encount er Note Patient called asking if she could have the following vaccinations: pneumonia RSV shingles flu Hep B Please advise [facility] Work Phone: 02-09-2025 Telephone encount er Note Spoke w pt and she has bx at [facility] on 03/02, next available w Dr Bennett for follow up is 03/19, which I scheduled. Yvette Cheng [facility] 02-09-2025 Miscellaneous Notes Formattin g of this note might be different from the original. Spoke w pt and she has bx at [facility] on 03/02, next available w Dr Bennett for follow up is 03/19, which I scheduled. Yvette Cheng Please see phone note on 12/02/24. Pt. needs follow up per the phone note-nothing is scheduled. She needs to see her surgeon as well-pt. was going to schedule. Thank you. Delvin Ron APRN.TOBACCO SAMPLER documented in this encounter [facility] 02-09-2025 Telephone encount er Note Please see phone note on 12/02/24. Pt. needs follow up per the phone note-nothing is scheduled. She needs to see her surgeon as well-pt. was going to schedule. Thank you. Delvin Ron APRN.TOBACCO SAMPLER [facility] 02-09-2025 Progress note [facility] 02-09-2025 Progress note Note Date/Time February 09, 2025 10:02am [facility] [address] [place] [address] OFFICE VISIT Date of Service: 02/09/25 MR#: [id number] Acct: [id number] Name: MARIMAR WANG Rep #: [id number] : 1960 Provider: Dr. Swapnil Garcia MD Age/Sex: 64/F Location: [facility] Status: Signed Intake Vital Signs 10/30/24 00:58 02/02/25 11:01 02/09/25 09:46 Height 5 ft 2 in 5 ft 2 in 5 ft 2 in Weight: 182 lb BMI 33.3 BP 134/76 H Blood Pressure Location Rt brachial Position Sitting Respiration 17 Pulse 68 Pulse Source Monitor Pulse Oximetry (%) 96 Oxygen Delivery Method room air Intake Visit Reasons: UPDATE H&P, Sigmoidoscopy Chief Complaint: update H&P, Sigmoidoscopy Is patient in pain?: No Allergies doxycycline calcium (From Vibramycin) Allergy (Verified 02/09/25 09:47) Anaphylaxis doxycycline hyclate (From Vibramycin) Allergy (Verified 02/09/25 09:47) Anaphylaxis doxycycline monohydrate (From Vibramycin) Allergy (Verified 02/09/25 09:47) Anaphylaxis NSAIDS (Non-Steroidal Anti-Inflamma Allergy (Verified 02/09/25 09:47) Anaphylaxis duloxetine (From Cymbalta) Adverse Reaction (Verified 02/09/25 09:47) HEADACHE AND UPSET STOMACH hydrocodone bitartrate (From Vicodin) Adverse Reaction (Verified 02/09/25 09:47) STOMACH UPSET hydromorphone HCl (From Dilaudid) Adverse Reaction (Verified 02/09/25 09:47) Vomiting morphine Adverse Reaction (Verified 02/09/25 09:47) Vomiting Medications ?Medication ?Instructions ?Recorded ?Confirmed ?Type albuterol sulfate 90 mcg/actuation 2 puff inhalation Q 4H PRN PRN 03/13/15 02/09/25 History aerosol inhaler Shortness Of Breath fluoxetine 20 mg capsule 60 mg PO QHS MENTAL HEALTH 0 12/13/15 02/09/25 History peg [id number] 1 1 drp OP 4X/DAY DRY EY ES 11/13/17 02/09/25 History %-0.2 %-0.2 % eye drops (Dry Eye Relief) leflunomide 20 mg tablet (Arava) 20 mg PO QHS RA 03/2202/09/25 History amlodipine 5 mg tablet 7.5 mg PO QHS BP 08/15/22 History mometasone 50 mcg/actuation nasal 2 spray intranasal . QAM ALLERGIES 08/15/22 02/09/25 History spray ergocalciferol (vitamin D2) 1,250 1,250 mcg PO .EVERY OTHER WEEK 11/05/22 02/09/25 History mcg (50,000 unit) capsule (Vitamin SUPPELEMNT D2) mecobalamin (vitamin B12) 1,000 1,000 mcg sublingual Q HS SUPPLEMENT 12/06/22 02/09/25 History mcg disintegrating tablet,sublingual abatacept 50 mg/0.4 mL 50 mg subcut QMONTH RA 12/1702/09/25 History subcutaneous syringe (Orencia) Held on 10/02/24. Instructions: due to chemo acetaminophen 500 mg tablet 1,000 mg PO Q6H PRN fever or pain 11/15/23 02/09/25 History atorvastatin 80 mg tablet 80 mg PO QHS 11/15/23 History meclizine 25 mg tablet 25 mg PO DAILY PRN PRN dizzi ness 03/17/24 02/09/25 History bupropion HCl (smoking deter) 150 150 mg PO QHS 02/09/25 History mg tablet,12 hr sustained-release(smoking deterrent) apixaban 5 mg (74 tabs) tablets in 10 mg PO Q12H 10/2402/09/25 History a dose pack (Open Energi DVT-PE Treat 30D Start) cholecalciferol (vitamin D3) 1,250 1,250 mcg PO DAILY 10/24/24 02/09/25 History mcg (50,000 unit) capsule furosemide 20 mg tablet 20 mg PO DAILY 10/24/2401/26 History alprazolam 1 mg tablet 1 mg PO TID 30 days #90 tabs 12/02/24 02/09/25 Rx dicyclomine 10 mg capsule 10 mg PO TID PRN for abdomin al 01/25/25 02/09/25 Rx pain #90 caps pantoprazole 40 mg tablet,delayed 40 mg PO DAILY #90 T ABLETS 01/25/25 02/09/25 Rx release diphenoxylate-atropine 2.5 1 tab PO TID PRN diarrhea # 90 tabs 02/02/25 02/09/25 Rx mg-0.025 mg tablet (Lomotil) promethazine 25 mg tablet 25 mg PO Q6H PRN PRN Nausea #30 02/02/25 02/09/25 Rx tabs budesonide 3 mg 1 mg PO QAM 02/09/25 5 History capsule,delayed,extended release Have you fallen in the past year?: No PFSH Medical History 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 Mass of anus Perirectal abscess History of Crohn's disease Psoriatic arthritis Psoriasis Internal derangement of right knee Wears glasses Post-menopausal Depression Anxiety Ambulates with cane Injury of back Difficulty swallowing History of IBS History of hiatal hernia Former smoker Shortness of breath on exertion Chronic cough History of echocardiogram History of stress test Hypertension Cardiology follow-up encounter History of CHF (congestive heart failure) History of irregular heartbeat Acute pharyngitis, unspecified URI (upper respiratory infection) Contact with or suspected exposure to other viral communicable disease History of partial replacement of left hip joint using bipolar prosthesis Vitamin D deficiency HLD (hyperlipidemia) Insomnia Dry eye Regular astigmatism, bilateral PVCs (premature ventricular contractions) Coronary artery stenosis Chronic diastolic CHF (congestive heart failure) Iron malabsorption Osteoarthritis Lumbar spondylosis Osteoporosis Congenital cataract Intermittent palpitations Nausea TIA (transient ischemic attack) Acute maxillary sinusitis, unspecified Acute ethmoidal sinusitis, unspecified Acute frontal sinusitis, unspecified COPD exacerbation Foreign body in conjunctival sac, left eye, initial encounter Acute bacterial conjunctivitis Influenza A Acute bronchitis Back pain Limb weakness Asthma Anemia Arthritis Surgical History History of total right knee replacement (TKR) S/P total knee arthroplasty Hx of esophagogastroduodenoscopy History of cardiac catheterization S/P repair of paraesophageal hernia History of Vanessa fundoplication H/O adenoidectomy History of tonsillectomy H/O hernia repair History of total left knee replacement Hx of section H/O shoulder surgery Family History Mother Asthma Hypertension Kidney disease Father Asthma Myocardial infarction Daughter Asthma Diabetes Hypertension Sister Asthma Hypertension Social History household members: family housing: house Smoking Status: Former smoker quit date: 07/29/13 alcohol intake: never substance use type: does not use HPI HPI HPI: The patient is a 64-year-old female who earlier this year was diagnosed with squamous cell rectal cancer. She is undergone chemotherapy and radiation therapy. She still has another radiation treatment I believe. She did develop a blood clot in her left arm and is currently on blood thinners. Apparently jeanine has Crohn's disease that has flared up as result of these treatments. Her treating oncologist has recommended that she obtain an MRI as well as a flexiblesigmoidoscopy with biopsies. She presents today to set up the flex sig ROS General General: Yes weight change, fatigue and colon cancer; No appetite, breast cancer or weakness HEENT HEENT: Yes difficulty swallowing; No eye injury, eye surgery, swollen glands or hoarseness Endo Endocrine: No thyroid disease, diabetes mellitus, thyroid cancer, Hair loss, heat intolerance or cold intolerance Skin Skin: No rash or changing moles Musc Musculoskeletal: Yes arthritis, rheumatoid arthritis and joint pain; No back problems or gout Cardio Cardiovascular: No murmur, pacemaker, heart disease, atrial fibrillation, high blood pressure, heart attack, heart stent, palpitations, shortness of breath with exertion or chest pain Psych Psychiatric: No depression, anxiety or hearing voices Resp Respiratory: No shortness of breath, No sleep apnea, No cough, Yes COPD, No asthma, No emphysema and No wheezing Gastro Gastrointestinal: No abdominal pain, No nausea or vomiting, Yes diarrhea, No constipation, No blood in stool, No acid reflux, No hemorrhoids, No ulcers, No gallbladder problem and No black,tarry stools Andrew Hematologic: Yes blood thinners, No blood disorders, No bleeding, Yes anemia andYes blood clots Neuro Neurologic: No system reviewed and no additional complaints, except as documented, No as per HPI, No abnormal gait, No abnormal hearing, No abnormal movements, No abnormal speech, No behavioral changes, No burning sensations, No confusion, No convulsions, No disequilibrium, No dizziness, No localized weakness, No frequent falls, No headache(s), No lack of coordination, No loss ofvision, No memory loss, No numbness, No other visual disturbances, No radicular pain, No restless legs, No sensory deficit, No syncope, No tingling, No tremor(s), No weakness and No other Exam Const General: cooperative, healthy appearing, comfortable and no acute distress [facility] Head: normal to inspection Eyes General: appearance normal, both eyes and all related structures Neck Neck: normal visual inspection Resp Effort & Inspection: normal respiratory effort Assessment and Plan Assessment and Plan (1) 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 She is undergoing chemo and radiation. We have beenrecommended to have her undergo a flex sig with biopsies. This will be scheduled in a timely manner. 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 Work Phone: [phone] Telephone encounter Note* Telephone Encounter - Rosio Buck LPN - 02/03/2025 12:50 PM EDT Pharmacy faxed requesting the following refill. New Pharmacy [facility], Please reach out and schedule an appointment. Thanks. Requested Prescriptions Pending Prescriptions Disp Refills cholecalciferol, Vitamin D3, (VITAMIN D3) 1,250 mcg (50,000 unit) cap capsule 90 capsule 1 Sig: Take 1 capsule by mouth every other week. Patient last appointment: 11/30/2024 Next Appointment: Visit date not found Patient Phone numbers: [phone] (home) Request is for script(s) to be escript to pharmacy. [facility] [place] [id number] - [address] [facility] 100 - [phone] Rosio Buck LPN [facility]07-09-2025 Miscellaneous Notes* Telephone Encounter - Rosio Buck LPN - 02/03/2025 12:50 PM EDT Pharmacy faxed requesting the following refill. New Pharmacy [facility], Please reach out and schedule an appointment. Thanks. Requested Prescriptions Pending Prescriptions Disp Refills cholecalciferol, Vitamin D3, (VITAMIN D3) 1,250 mcg (50,000 unit) cap capsule 90 capsule 1 Sig: Take 1 capsule by mouth every other week. Patient last appointment: 11/30/2024 Next Appointment: Visit date not found Patient Phone numbers: [phone] (home) Request is for script(s) to be escript to pharmacy. [facility] [place] [id number] - [address] [facility] 100 - [phone] Rosio Buck LPN documented in this encounterC[facility] History of Present illness Narrative* Jackie Fan RT(R) - 02/01/2025 11:00 AM EDT Radiology Service Progress Note PATIENT NAME: Marimar Wang DATE OF SERVICE: February 01, 2025 TIME: 10:31 AM PATIENT IDENTITY VERIFICATION COMPLETED USING TWO (2) IDENTIFIERS: Name and Date of confirmedby patient verbally. FALL SCREENING: Has the patient had 2 falls in the last year or 1 fall with injury or currently using an Ambulatory Assistive Device (Walker, Cane, Wheelchair, Crutches, etc.)? No PATIENT GENDER DATA: Assigned female at . status: : No status:NO. PATIENT RELEVANT IMPLANT DATA REVIEWED: Yes PATIENT PRESENTS WITH AN IMPLANTABLE OR ATTACHED PEDIATRIC SURGEON: No RADIOLOGY DEPARTMENT: MR; Exam(s) Completed: Body: Rectal. Aromatherapy Administered: No PERIPHERAL IV DATA: Site assessment: Clean,Dry and Intact, Site disposition Left in for next appointment SIGNED BY: RT Sheyla(R) February 01, 2025 10:31 AM documented in this encounterC[facility] Evaluation note* Diagnosis Onset Date Resolution Status Admit Date Crohn disease acute January 14, 2025 8:19am Irritable bowel syndrome wit h diarrhea acute January 14, 2025 8:19am [facility] Work Phone: 1(434) 491-818106-19-2025 Evaluation note* Diagnosis Onset Date Resolution Status Admit Date Crohn disease acute January 14, 2025 8:19am Irritable bowel syndrome wit h diarrhea acute January 14, 2025 8:19am Diarrhea chronic February 02, 2025 10:53am 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 acute February 09, 2025 9:32am [facility] Work Phone: 1(377) 296-646606-18-2025 Telephone encounter Note* Telephone Encounter - Rosio Buck LPN - 01/13/2025 8:18 AM EDT Pharmacy faxed requesting the following refill. New Pharmacy [facility], Please reach out and schedule an appointment. Thanks. Requested Prescriptions Pending Prescriptions Disp Refills leflunomide (ARAVA) 20 mg tablet 90 tablet 0 Sig: Take 1 tablet by mouth once daily. Patient last appointment: 11/30/2024 Next Appointment: Visit date not found Patient Phone numbers: [phone] (home) Request is for script(s) to be escript to pharmacy. [facility] [place] [id number] - [address] [facility] 100 - [phone] Rosio Buck LPN [facility]06-18-2025 Miscellaneous Notes* Telephone Encounter - Rosio Buck LPN - 01/13/2025 8:18 AM EDT Pharmacy faxed requesting the following refill. New Pharmacy [facility], Please reach out and schedule an appointment. Thanks. Requested Prescriptions Pending Prescriptions Disp Refills leflunomide (ARAVA) 20 mg tablet 90 tablet 0 Sig: Take 1 tablet by mouth once daily. Patient last appointment: 11/30/2024 Next Appointment: Visit date not found Patient Phone numbers: [phone] (home) Request is for script(s) to be escript to pharmacy. [facility] [place] [id number] - [address] [facility] 100 - [phone] Rosio Buck LPN documented in this encounterC[facility]06-[facility] Telephone encounter Note * Telephone Encounter - Lynn New LPN - 01/05/2025 1:50 PM EDT Pt. Notified she can stop the potassium. Pt. Voiced understanding. Lynn New LPN [facility]06-10-2025 Miscellaneous Notes* Telephone Encounter - Lynn New LPN - 01/05/2025 1:50 PM EDT Pt. Notified she can stop the potassium. Pt. Voiced understanding. Lynn New LPN * Telephone Encounter - Josh Bennett DO - 01/05/2025 1:25 PM EDT She can stop potassium. Josh Bennett DO * Telephone Encounter - Kathya Rich LPN - 01/05/2025 11:33 AM EDT [facility]ill req [facility]. Asking for them both to be filled so pt can refill at the same time. Kathya Rich LPN documented in this encounterCleveland [facility]06-10-2025 Telephone encounter Note * Telephone Encounter - Josh Bennett DO - 01/05/2025 1:25 PM EDT She can stop potassium. Josh Bennett DO [facility]06-10-2025 Telephone encounter Note* Telephone Encounter - Kathya Rich LPN - 01/05/2025 11:33 AM EDT Refill req from [facility]. Asking for them both to be filled so pt can refill at the same time. Kathya Rich LPN [facility]06-01-2025 Radiology Diagnostic study note [facility] Imaging Services [address] [place] [address] [id number] Pelvis without IV Contrast MR#: [id number] Acct: [id number] Name: MARIMAR WANG Rep #: [id number] : 1960 F 64 From: Huey Mendoza MD PCP: [facility] Status: REG E R Study:Pelvis without IV Contrast Date of Exam : 12/27/24 Exam# [id number] Ordering Dr: Ekaterina Croft PROCEDURE: PELVIS WITHOUT IV CONTRAST 12/27/2024 REASON FOR EXAM: PAIN TECHNIQUE: Pelvis CT without contrast. One or more dose reduction techniques were used (e.g., Automated exposure control, adjustment of the mA and/or kV according to patient size, use of iterative reconstruction technique). RADIATION DOSE SUMMARY: CTDlvol: 14.83 mGy DLP: 533.27 mGycm COMPARISON: None. FINDINGS: Left hip total arthroplasty. No evidence of acute fracture or dislocation. Osseous demineralization. The peripheral soft tissues are unremarkable. No acute intrapelvic abnormalities. CT/Pelvis without IV Contrast IMPRESSION: No acute abnormalities. Reading Location: [place] [address] CC: [facility]; [place] ~ Bike Mechanic: Signed [facility]05-16-2025 Telephone encounter Note* Telephone Encounter - Janie Rice - 12/11/2024 2:51 PM EDT Patient called and rescheduled appointment Janie Rice [facility]05-16-2025 Miscellaneous Notes* Telephone Encounter - Janie Rice - 12/11/2024 2:51 PM EDT Patient called and rescheduled appointment Janie Rice * Telephone Encounter - Janie Rice - 12/11/2024 8:45 AM EDT Cancelled 12/11 treatment per secure chat and needs rescheduled in December. 2ND YR RECLAST/QMO ORENCIA/(PORT)ORDERING PROV DR ARIAS* Janie Rice documented in this encounterC[facility]25 Telephone encounter Note * Telephone Encounter - Janie Rice - 12/11/2024 8:45 AM EDT Cancelled 12/11 treatment per secure chat and needs rescheduled in December. 2ND YR RECLAST/QMO ORENCIA/(PORT)ORDERING PROV DR ARIAS* Janie Rice [facility]05-15-2025 Telephone encounter Note* Telephone Encounter - Candace Alvarenga MA - 12/10/2024 11:28 AM EDT Pharmacy faxed requesting the following refill. Requested Prescriptions Pending Prescriptions Disp Refills leflunomide (ARAVA) 20 mg tablet [Pharmacy Med Name: LEFLUNOMIDE 20MG TAB] 90 tablet 0 Sig: Take 1 tablet by mouth once daily Patient last appointment: 11/30/24 Next Appointment: Visit date not found Patient Phone numbers: [phone] (home) Request is for script(s) to be escript to pharmacy. Candace Alvarenga MA [facility]05-15-2025 Miscellaneous Notes* Telephone Encounter - Candace Alvarenga MA - 12/10/2024 11:28 AM EDT Pharmacy faxed requesting the following refill. Requested Prescriptions Pending Prescriptions Disp Refills leflunomide (ARAVA) 20 mg tablet [Pharmacy Med Name: LEFLUNOMIDE 20MG TAB] 90 tablet 0 Sig: Take 1 tablet by mouth once daily Patient last appointment: 11/30/24 Next Appointment: Visit date not found Patient Phone numbers: [phone] (home) Request is for script(s) to be escript to pharmacy. Candace Alvarenga MA documented in this encounterCleveland [facility]05-[facility]-2025 Telephone encounter Note * Telephone Encounter - Roxanne Bland RN - 12/10/2024 11:10 AM EDT Addressed in a separate phone encounter. Roxanne Bland RN [facility]05-15-2025 Miscellaneous Notes* Telephone Encounter - Roxanne Bland RN - 12/10/2024 11:10 AM EDT Addressed in a separate phone encounter. Roxanne Bland RN * Telephone Encounter - Delvin Ron APRN.CNP - 11/30/2024 3:12 PM EDT Will do after I talk with Dr. Bennett. Delvin E Ron, MECHANICAL FIELD ENGINEER.TOBACCO SAMPLER * Telephone Encounter - Jordyn Fernandez - 11/30/2024 2:39 PM EDT Please advise of follow ups, etc from 11/30 office visit documented in this encounterCleveland Clinic [facility]05-12-2025 NoteL[facility]05-12-2025 History of Present illness Narrative* Sidney Joya MD - 12/07/2024 2:32 PM EDT AMBULATORY TELEPHONE VISIT Marimar Wang has consented to this telephone encounter. Persons Present: patient Chief Complaint/Reason: Four week follow-up after radiation treatment. 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 It's p16 positive. s/p chemoradiation treatment finished on 11/16/24. She is doing well without any specific new complaints. She reports that pain in the perianal regionimproved much and she barely has any pain now. Skin there healed well as well. She has chronic diarrhea at her baseline. Data Reviewed: None. Assessment: She is recovering well from acute radiation treatment effects. Plan: She is scheduled to have MRI pelvis in January and then to see her surgeon and Dr. Bennett. Total Time Spent: 10 minutes Sidney Joya MD documented in this encounterCleveland [facility]05-09-2025 Telephone encounter Note * Telephone Encounter - Rosio Buck LPN - 12/04/2024 3:48 PM EDT Patient notified and verbalized understanding. Patient asking if she can have her Orencia infusion on 12/10/2024 when she gets her Reclast infusion. Rosio Buck LPN [facility]05-09-2025 Miscellaneous Notes* Telephone Encounter - Rosio Buck LPN - 12/04/2024 3:48 PM EDT Patient notified and verbalized understanding. Patient asking if she can have her Orencia infusion on 12/10/2024 when she gets her Reclast infusion. Rosio Buck LPN * Telephone Encounter - Rosio Buck LPN - 12/04/2024 3:45 PM EDT Images from the original note were not included. Message Received: 3 days ago Jennifer Arais MD Russell, Tina, LPN Let patient know that we will be resuming orencia in a few weeks and I am sending low dose pred course. documented in this encounterCleveland [facility]05-09-2025 Telephone encounter Note * Telephone Encounter - Rosio Buck LPN - 12/04/2024 3:45 PM EDT Images from the original note were not included. Message Received: 3 days ago Jennifer Arias MD Russell, Tina, LPN Let patient know that we will be resuming orencia in a few weeks and I am sending low dose pred course. [facility]05-05-2025 Telephone encounter Note* Telephone Encounter - Delvin Ron APRN.CNP - 11/30/2024 3:12 PM EDT Will do after I talk with Dr. Bennett. Delvin Ron APRN.CNP [facility]05-05-2025 Telephone encounter Note* Telephone Encounter - Jordyn Fernandez - 11/30/2024 2:39 PM EDT Please advise of follow ups, etc from 11/30 office visit [facility] Work Phone: 1(802) 269-274105-05-2025 Telephone encounter Note* Telephone Encounter - Kelly Cooley MA - 11/30/2024 2:02 PM EDT I called and left a message to get patient set up for a reclast infusion ordered by Dr. Arias. Kelly Cooley MA [facility]05-05-2025 Miscellaneous Notes* Telephone Encounter - Kelly Cooley MA - 11/30/2024 2:02 PM EDT I called and left a message to get patient set up for a reclast infusion ordered by Dr. Arias. Kelly Cooley MA documented in this encounterC[facility]25 NoteHNO ID: [id number] Author: JENNIFER ARIAS MD Service: ? Author Type: Physician Type: Progress Notes Filed: 11/30/2024 12:48 Note Text: RHEUMATOLOGY PROGRESS NOTE VIRTUAL VISIT PROGRESS NOTE This is a virtual visit using HIPAA compliant video platform. It required patient-provider interaction for the medical decision making as documented below using Groopiet. I have communicated my name and active licensure. The patient?s identity and physical location were verified at the time of this visit. Either the patient or their legal sales representative publications has been informed of the risks and benefits of -- and alternatives to -- treatment through a remote evaluation and consents to proceed with the evaluation remotely. HPI: Marimar Wang is a 64 year old female seen for RA, osteoporosis, crohn's, psoriasis. Hands and feet have been feeling worse. Arava 20 mg daily Orencia IV every 4 weeks- on hold Reclast IV yearly, Vit D 50,000 units every other week Losing weight, poor appetite. Finished chemo/radiation. Planning to do MRI. Oncology wanted to postpone Orencia 6 weeks past last chemo/radiation Last Orencia 06/21 Chemo/XRT scheduled 10/05 Getting PICC line soon Joint doing well at present. No joint pain, swelling. Crohn's has been active. Still on budesonide. On clindamycin at present for infected IANDD, started 09/25/24 Rash- PCP diagnosed with psoriasis on her fingers GI recently diagnosed her with crohn's disease. And pancreatic insuff. Started Creon, budesonide. Uses Tylenol- does not help Right knee replaced 01/23/2023. Doing well. Dr. Odalis Cooney [facility] No longer seeing pain mgmt- not on Lyrica Was diagnosed with TIA. Carotid artery stenosis. On Plavix Jul 2021 - fell on ice fracture NOF. Also had stress fracture which could have been old. Had hemiarthroplasty. COVID 04/06/2021, whole month, COVID pneumonia, pleurisy, bronchitis Following closely with pulmonology, recent PFTs are stable HISTORY REVIEWED (electronic chart updated): PAST MEDICAL HISTORY Diagnosis Date Asthma (HCC) Homer lesion, acute 01/30/2019 Carotid artery stenosis bilateral- US in [facility] COPD (chronic obstructive pulmonary disease) (HCC) Crohn disease (HCC) Depression Diverticulosis Fibromyalgia GERD (gastroesophageal reflux disease) GI bleed 02/2019 Hiatal hernia Repaired 05/07/19 Hyperlipidemia Hypertension Insomnia Iron deficiency anemia Iron deficiency anemia Osteoarthritis Osteoporosis Piriformis syndrome PVC's (premature ventricular contractions) Rheumatoid arthritis Sjogren's disease (HCC) Vitamin D deficiency PAST SURGICAL HISTORY Procedure Laterality Date ARTHRP KNE CONDYLEANDPLATU MEDIALANDLAT COMPARTMENTS 2009 Total left knee surgery COLONOSCOPY FLX DX W/COLLJ SPEC WHEN PFRMD 04/11/2015 diverticulosis, no specimens collected Dr. Tapia COLONOSCOPY FLX DX W/COLLJ SPEC WHEN PFRMD 09/23/[address] Tapia EGD 01/30/2019 large hiatal hernia with Homer erosions, likely source of GI bleed Dr. Rudolph EGD 09/15/2007 patulous GE junction, nonobstructive Schatzki's ring, bile reflux of stomach, hiatal hernia, neg H pylori EGD EUS N/A 07/07/2020 3 cm sliding hiatal hernia, no obst Schatzki's ring, mild duodenitis, mild/moderate gastritis EGD TRANSORAL BIOPSY SINGLE/MULTIPLE 02/17/2020 retained contents in stomach, bxs negative Dr. Pat ESOPHAGOGASTRODUODENOSCOPY TRANSORAL DIAGNOSTIC 05/07/2016 sliding hiatal hernia, no source of GI bleed Dr. Laureano ESOPHAGOGASTRODUODENOSCOPY TRANSORAL DIAGNOSTIC 09/23/2017 normal, bxs negative Dr. Tapia GI TR IMG INTRALUMINAL ESOPHAGUS-ILEUM W/IANDR 10/04/2017 Normal smallbowel Capsule endosocpy HIATAL HERNIA REPAIR HX 04/2019 LAPS RPR PARAESPHGL HRNA INCL FUNDPLSTY W/MESH 05/07/2019 Dr. Pat MRI BRAIN W/O CONTRAST 07/20/2011 PARTIAL HIP REPLACEMENT Left 2020 PAST SURGICAL HISTORY OF 1983, 1986 2 C Sections PAST SURGICAL HISTORY OF 1982 Left shoulder, has screw in shoulder PAST SURGICAL HISTORY OF 09/02/2024 biopsy perianal mass TOTAL KNEE REPLACEMENT Right 2021 FAMILY HISTORY Problem Relation Age of Onset other (Anemia) Mother Anemia other (other) Mother other (pulmonary hypertention) Mother other (ESRD) Mother Hypertension Mother Stroke Mother Cataract Mother Asthma Mother Kidney failure Mother Heart Father Glaucoma Father Ischemic Heart Disease Father age 42 from [place] Hypertension Sister other (Other) Brother 18 MVA Angioedema Maternal Grandmother other (CHF) Maternal Grandfather Hypertension Paternal Grandmother Stroke Paternal Grandfather Depression Daughter other (PTSD) Daughter other (Anxiety) Daughter other (svt) Daughter Diabetes Daughter Social History Tobacco Use Smoking status: Former Current packs/day: 0.00 Average packs/day: 1 pack/day for 31.0 years (31.0 ttl pk-yrs) Types (more content not included)...[facility]05-05-2025 History of Present illness Narrative* Jennifer Arias MD - 11/30/2024 12:11 PM EDT Images from the original note were not included. RHEUMATOLOGY PROGRESS NOTE VIRTUAL VISIT PROGRESS NOTE This is a virtual visit using HIPAA compliant video platform. It required patient-provider interaction for the medical decision making as documented below using Groopiet. I have communicated my name and active licensure. The patient s identity and physical location wereverified at the time of this visit. Either the patient or their legal sales representative publications has been informed of the risks and benefits of -- and alternatives to -- treatment through a remote evaluation andconsents to proceed with the evaluation remotely. HPI: Marimar Wang is a 64 year old female seen for RA, osteoporosis, crohn's, psoriasis. Hands and feet have been feeling worse. Arava 20 mg daily Orencia IV every 4 weeks- on hold Reclast IV yearly, Vit D 50,000 units every other week Losing weight, poor appetite. Finished chemo/radiation. Planning to do MRI. Oncology wanted to postpone Orencia 6 weeks past last chemo/radiation Last Orencia 06/21 Chemo/XRT scheduled 10/05 Getting PICC line soon Joint doing well at present. No joint pain, swelling. Crohn's has been active. Still on budesonide. On clindamycin at present for infected I&D, started 09/25/24 Rash- PCP diagnosed with psoriasis on her fingers GI recently diagnosed her with crohn's disease. And pancreatic insuff. Started Creon, budesonide. Uses Tylenol- does not help Right knee replaced 01/23/2023. Doing well. Dr. Odalis Cooney [facility] No longer seeing pain mgmt- not on Lyrica Was diagnosed with TIA. Carotid artery stenosis. On Plavix Jul 2021 - fell on ice fracture NOF. Also had stress fracture which could have been old. Had hemiarthroplasty. COVID 04/06/2021, whole month, COVID pneumonia, pleurisy, bronchitis Following closely with pulmonology, recent PFTs are stable HISTORY REVIEWED (electronic chart updated): PAST MEDICAL HISTORY Diagnosis Date Asthma (HCC) Homer lesion, acute 01/30/2019 Carotid artery stenosis bilateral- US [place] [facility] COPD (chronic obstructive pulmonary disease) (HCC) Crohn disease (HCC) Depression Diverticulosis Fibromyalgia GERD (gastroesophageal reflux disease) GI bleed 02/2019 Hiatal hernia Repaired 05/07/19 Hyperlipidemia Hypertension Insomnia Iron deficiency anemia Iron deficiency anemia Osteoarthritis Osteoporosis Piriformis syndrome PVC's (premature ventricular contractions) Rheumatoid arthritis Sjogren's disease (HCC) Vitamin D deficiency PAST SURGICAL HISTORY Procedure Laterality Date ARTHRP KNE CONDYLE&PLATU MEDIAL&LAT COMPARTMENTS 2009 Total left knee surgery COLONOSCOPY FLX DX W/COLLJ SPEC WHEN PFRMD 04/11/2015 diverticulosis, no specimens collected Dr. Tapia COLONOSCOPY FLX DX W/COLLJ SPEC WHEN PFRMD 09/23/[address] Tapia EGD 01/30/2019 large hiatal hernia with Homer erosions, likely source of GI bleed Dr. Rudolph EGD 09/15/2007 patulous GE junction, nonobstructive Schatzki's ring, bile reflux of stomach, hiatal hernia, neg H pylori EGD EUS N/A 07/07/2020 3 cm sliding hiatal hernia, no obst Schatzki's ring, mild duodenitis, mild/moderate gastritis EGD TRANSORAL BIOPSY SINGLE/MULTIPLE 02/17/2020 retained contents in stomach, bxs negative Dr. Pat ESOPHAGOGASTRODUODENOSCOPY TRANSORAL DIAGNOSTIC 05/07/2016 sliding hiatal hernia, no source of GI bleed Dr. Laureano ESOPHAGOGASTRODUODENOSCOPY TRANSORAL DIAGNOSTIC 09/23/2017 normal, bxs negative Dr. Tapia GI TRC IMG INTRALUMINAL ESOPHAGUS-ILEUM W/I&R 10/04/2017 Normal smallbowel Capsule endosocpy HIATAL HERNIA REPAIR HX 04/2019 LAPS RPR PARAESPHGL HRNA INCL FUNDPLSTY W/MESH 05/07/2019 Dr. Pat MRI BRAIN W/O CONTRAST 07/20/2011 PARTIAL HIP REPLACEMENT Left 2020 PAST SURGICAL HISTORY OF 1983, 1986 2 C Sections PAST SURGICAL HISTORY OF 1982 Left shoulder, has screw in shoulder PAST SURGICAL HISTORY OF 09/02/2024 biopsy perianal mass TOTAL KNEE REPLACEMENT Right 2021 FAMILY HISTORY Problem Relation Age of Onset other (Anemia) Mother Anemia other (other) Mother other (pulmonary hypertention) Mother other (ESRD) Mother Hypertension Mother Stroke Mother Cataract Mother Asthma Mother Kidney failure Mother Heart Father Glaucoma Father Ischemic Heart Disease Father age 42 from [place] Hypertension Sister other (Other) Brother 18 MVA Angioedema Maternal Grandmother other (CHF) Maternal Grandfather Hypertension Paternal Grandmother Stroke Paternal Grandfather Depression Daughter other (PTSD) Daughter other (Anxiety) Daughter other (svt) Daughter Diabetes Daughter Social History Tobacco Use Smoking status: Former Current packs/day: 0.00 Average packs/day: 1 pack/day for 31.0 years (31.0 ttl pk-yrs) Types: Cigarettes Start date: 01/02/1984 Quit date: 01/01/2015 Years since quittin.9 Smokeless tobacco: Never Tobacco comments: ETS: Father in childhood home. Active smoker in current home. Vaping Use Vaping status: Never Used Substance Use Topics Alcohol use: No Drug use: Never Current Outpatient Medications Medication Sig prochlorperazine (COMPAZINE) 10 mg tablet Take 1 tablet by mouth every 6 hours as needed. apixaban (ELIQUIS) 5 mg tab(s) Take 1 tablet by mouth two times a day. miconazole (MONISTAT 7) 2 % vaginal cream Use 1 applicator vaginally daily at bedtime. SSD 1 % cream APPLY TO AFFECTED AREA TWICE DAILY nystatin (MYCOSTATIN) powder APPLY TO AFFECTED AREA. lidocaine-prilocaine (EMLA) 2.5-2.5 % cream Apply to affected area as needed. Apply ample amount toport site 60 minutes prior to accessing. potassium chloride (K-TAB) 10 mEq tablet Take 1 tablet by mouth two times a day. uzcozzpvijHALDR-nmwntp-rwwpggnfk (BMX 1:1:1) 1:1:1 liqd Take 10 mL by mouth every 4 hours as needed. cholecalciferol, Vitamin D3, (VITAMIN D3) 1,250 mcg (50,000 unit) cap capsule Take 1 capsule by mouth every other week. iv contrast (will be provided with radiology test) CT Chest W -Inject, intravenously, once for 1 dose.No IV access, insert saline lock prior to the beginning of sedation, infusion, injection of imaging exam. Discontinue saline lock post exam. If Pt. has a central line or IVAD, may access for administration according to line specific nursing protocol. Once exam is complete flush line and de-accessaccording to line specific nursing protocol in the CT contrast administration guidelines link. leflunomide (ARAVA) 20 mg tablet Take 1 tablet by mouth once daily meclizine (ANTIVERT) 25 mg tab Take 25 mg by mouth three times a day as needed (for dizziness). atorvastatin (LIPITOR) 80 mg tablet Take 80 mg by mouth once daily. fawinj-gppgzscr-mbgzszc (CREON 36) 36,000-114,000- 180,000 unit delayed release capsule Take 1-3 capsules by mouth with meals and at bedtime. With snacks also furosemide (LASIX) 20 mg tablet Take 20 mg by mouth once daily. budesonide, enteric coated (ENTOCORT EC) 3 mg 24 hr capsule Take 2 capsules by mouth every afternoon. pantoprazole DR (PROTONIX) 40 mg tablet Take 40 mg by mouth once daily. dicyclomine (BENTYL) 20 mg tablet Take 10 mg by mouth three times a day. VITAMIN B-12 1,000 mcg tab DISSOLVE 1 TABLET BY MOUTH ONCE DAILY amLODIPine (NORVASC) 5 mg tablet Take 7.5 mg by mouth once daily. clopidogrel (PLAVIX) 75 mg tablet Take 75 mg by mouth once daily. FLUoxetine (PROZAC) 20 mg capsule Take 3 capsules by mouth once daily. abatacept/maltose (ORENCIA, WITH MALTOSE, INTRAVENOUS) Inject intravenously. albuterol HFA (VENTOLIN HFA) 90 mcg/actuation inhaler Inhale 2 Puffs as instructed every 4 hours asneeded for wheezing/shortness of breath. buPROPion XL (WELLBUTRIN XL) 150 mg 24 hr tablet Take 1 tablet by mouth once daily. mometasone (NASONEX) 50 mcg/actuation nasal spray Use 2 Sprays in the nose once daily. Rinse mouth after use. acetaminophen (TYLENOL) 325 mg tablet Take by mouth every 6 hours as needed. albuterol (PROVENTIL) 2.5 mg /3 mL (0.083 %) nebulizer solution Use 3 mL via nebulizer every 6 hours as needed for Wheezing/Shortness of Breath. >Nebulizer For Home Nebulizer for home use. Diagnosis: Moderate persistent asthma with acute exacerbation and pneumonia No current facility-administered medications for this visit. ALLERGIES Allergen Reactions Cymbalta [Duloxetin* Intolerance Headaches Nsaids (Non-Steroid* Anaphylaxis Had anaphylactic reaction to Aleve Vibramycin [Doxycyc* Anaphylaxis Dilaudid [Hydromorp* Vomiting Morphine Vomiting Horse/Equine Contai* Swelling Vicodin [Hydrocodon* Vomiting Can take if given antiemetic at same time History Review: I have reviewed and modified as needed, the following during this visit: Allergies,Past Medical History, Past Surgical History, Past Family History, Past Social History. LMP 01/22/2010 REVIEW OF SYSTEMS: GENERAL: feeling well without fatigue, no recent change in weight As noted in HPI PHYSICAL EXAMINATION: VIDEO EXAM: (if completed, performed via video enabled technology) GENERAL: alert and appropriate, in no distress, well-hydrated, well nourished, and happy, smiling, interactive Labs: 09/22 Cr 0.7 LFT normal CBC normal Hepatitis panel neg HIV neg 02/18 Cr 0.82 LFT normal CBC with hgb 10.2 03/2023 Cr 0.8 LFT normal CRP normal Vit D 89.2 Hep panel neg CBC normal ESR 26 TB neg 05/2022 Cr 0.7 LFT normal CBC normal 10/2021 Creatinine0.63 Liver enzymes normal CRP normal CBC normal ESR 12 Serology: RF positive, CCP positive Radiology: BMD 08/22 Osteoporosis 10-year absolute fracture risk: - major osteoporotic fracture = 14 % - hip fracture = 2.0 % Lumbar spine (L1, L2, L3, L4): 0.750 g/cm2, T-score -2.7 , Z-score -0.9 Lumbar spine: 2021 : 0.767 g/cm2 No statistically significant change Right Femoral Neck: 0.656 g/cm2, T-score -1.7 , Z-score -0.2 Right Femoral Neck: 2021 : 0.710 g/cm2 Statistically significant decrease Right Total Hip: 0.763 g/cm2, T-score -1.5 , Z-score -0.2 Right Total Hip: 2021 : 0.824 g/cm2 Statistically significant decrease IMPRESSION: Large hiatal hernia. Again seen is mild, diffuse bronchial wall thickening. Interval development of multifocal bilateral groundglass attenuation airspace opacities within both lungs, concerning for multifocal pneumonia. Interval follow-up examination after treatment is recommended in order to ensure resolution. Sequela of remote granulomatous disease. Interval development of tiny pulmonary nodules, measuring up to 2 mm in size. Incidental Finding: No follow-up imaging for this/these incidentally detected lung nodule(s) is recommended. If there are risk factors for lung malignancy, a follow-up chest CT exam could be obtained in 12 months. Interval development of anterior mediastinal lymphadenopathy. IMPRESSION: MODERATE TO MARKED OSTEOARTHRITIS OF THE PATELLOFEMORAL AND MEDIAL COMPARTMENT. NONDISPLACED MEDIAL MENISCUS TEAR. PARTIALLY RUPTURED MATTHEW'S CYST. Impression IMPRESSION: Mild spondylotic changes as detailed noting multilevel facet arthropathy, most pronounced at L4-5 and L5-S1. No significant canal or foraminal narrowing. Anatomic Thoracic/Lumbar Variant: None. L4-5 is considered the level of the iliac crest and assume there are 5 lumbar-type vertebrae. 07/19 - IMPRESSION: 1. Osteoporosis. 2. Osteopenia in the right hip/femoral neck. LUMBAR SPINE: The bone mineral density from L1 through L4 is 0.767 grams per square centimeter which yields a T-score of -2.5. There has been an 8.9% statistically significant interval increase in bone mineral density. RIGHT HIP: The bone mineral density of the total region of the hip is 0.824 grams per square centimeter which yields a T-score of -1.0. RIGHT FEMORAL NECK: The bone mineral density of the femoral neck is 0.710 grams per square centimeter which yields a T-score of -1.3. 10-year Fracture Risk (FRAX): Major osteoporotic fracture risk 25% Hip fracture risk is 2.4% 10/18 Electrodiagnostic impression: This is a normal electrodiagnostic study of the right upper and right lower limb. There is no electrodiagnostic evidence for peripheral neuropathy, cervical radiculopathy or lumbosacral radiculopathy. ANCA neg ASSESSMENT: (M05.79) Rheumatoid arthritis involving multiple sites with positive rheumatoid factor (HCC) (primary encounter diagnosis) (M06.9) Rheumatoid arthritis involving multiple sites, unspecified whether rheumatoid factor present (HCC) (M81.8) Other osteoporosis without current pathological fracture 64-year-old woman is here for follow-up. Patient has seropositive rheumatoid arthritis, erosive osteoarthritis and osteoporosis. She was on Humira and Arava however discontinued due to being sick. Patient was switched to Orencia infusions. Had been doing well on combination Orencia IV every 4 weeks infusions and Arava 20 mg daily. Osteoporosis. Bone density shows improvement since starting Reclast. BMD shows osteoporosis with T score -2.5 lumbar spine. S/p Reclast 02/2018, 05/2019, 12/2020, 12/2021, 03/2023. Would like her to have 1 additional dose 04/2024 for a total of 6 doses, obtain bone density 07/21 and then take a drug holiday. Continue 50,000 units every other week. Patient said she saw pulmonology, was told she did not have RA-ILD. 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 Following with cardiology for chronic diastolic heart failure. Carotid artery atherosclerosis. On Plavix Vanessa fundoplication completed, doing better. She has had left trochanteric bursitis in past. Recommend exercises and stretching. Injections can be considered in the future if needed. She is seeing spine and pain management and receiving procedures in her low back Patient has erythematous scaling lesions noted to her fingers with extreme itching, looks suspicious for eczema. Seeing PCP. Has not seen derm to confirm if truly has psoriasis. Dumping syndrome, crohn's disease. Seeing GI. On budesonide. Iron def anemia- had iron infusions PLAN: Recently diagnosed with anal cancer, planning chemo/XRT 10/05/24 Discussed case with oncology, holding off on Orencia until 6 weeks AFTER completion of chemo/XRT When cancer is clear- can resume Orencia IV every 4 weeks Continue Arava 20 mg daily For osteoporosis, continue Reclast for one more time. This will be her 6th Reclast. May need to switch to Prolia or Forteo. Last BMD 08/22- some decline. Discuss changing to Prolia next visit Labs every 3 months Would like her eventually to come off budesonide as she is currently undergoing treatment for osteoporosis and has had history of fractures in the past, may need to discuss long-term treatment for Crohn's disease with GI D/w oncology regarding low dose pred / resuming orencia. Schedule last dose of Reclast There are no Patient Instructions on file for this visit. Jennifer Arias MD I spent a total of 20 minutes on the date of the service which included preparing to see the patient, [id number] patient care, completing clinical documentation, obtaining and/or reviewing separately obtained history, performing a medically appropriate examination, counseling and educating the pat ient/family/caregiver, ordering medications, tests, or procedures, independently interpreting results (not separately reported), communicating results to the patient/family/caregiver, and care coordination (not separately reported). documented in this encounterC[facility] NoteLake[facility] History of Present illness Narrative* Delvin Ron APRN.TOBACCO SAMPLER - 11/30/2024 10:35 AM EDT Chief Complaint Patient presents with: Established Patient HPI: Marimar Wang is a 64 year old female who presents here today for follow up anal cancer. Per Dr. Bennett's previous note: Initial consultation: Has h/o GI bleed. HH repair . Vanessa fundoplication. 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 Sees Dr. Pitts. EGD earlier this year for reflux. Esophageal dilation. B. esophagus as well. Still had hiatal hernia. Orencia doesn't help this. Diagnosed with Crohn's last year. Colonoscopy 10/2022. Congested mucosa in the ascending colon, hepatic flexure and descending colon. Has history of pancreatic insufficiency. Previous capsule endoscopy in 2018. Tired all the time. Diagnosed with RA in 2011. On Orencia. Helps hands. Arava. Can't take oral iron. They make me so sick. They won't even stay down. Has blood on toilet tissue when wipes. Attributed to Crohn's. She had IV iron here in the past. OV 07/15/2025: Presented to the ED at [facility] on 09/02[facility]2024 with complaint of perianal pain that had been going on for about a week. A CT scan of the abdomen pelvis was obtained and it demonstrated in the right perineum with thick walled 5.4 x 1.6 cm fluid collection with adjacent fat stranding most compatible with an abscess. No other abnormalities. Other than postsurgical changes of Vanessa fundoplication. She was taken to the OR. Once under general anesthesia, careful exam demonstrated what appeared to be a perianal mass. It extended jail external to the anal verge and another 2 to 3 cm beyond the anal verge towards the rectum. It was hard. Highly suspicious for malignancy. The mass was incised and bloody fluid return. No pus was observed in the cavity. The piece of tissue was excised for pathology. The area was cauterized and Gelfoam packing was inserted. Pathology: Perianal mass, biopsy: Focal area of moderately differentiated invasive squamous cell carcinoma. Extensive squamous cell carcinoma in situ. See comment. COMMENT Immunohistochemistry ([id number]) for surrogate HPV marker (p16) will be performed, and results will be reported separately. P16 (E6H4) positive, block staining Ki-67 (30-9) positive, high She has a history of pancreatic insufficiency and uses PEP. Also has a history of Crohn's disease and is on budesonide. Continues to have about 1-2 watery bowel movements a day. She has not observed any blood in her stools. She describes her appetite as being fair. She has a continual feeling of nausea. She has had esophageal strictures and has undergone EGD with dilation in the past. Most recent colonoscopy was 11/06/2022. At that time the perianal and digital rectal exams were noted normal. There were a few small mouth diverticula observed in the rectosigmoid colon as well as sigmoid colon. There was an area of mildly congested mucosa in the descending colon, right flexure and in the ascending colon. Biopsies were obtained. No polyps. Pathology demonstrated fragments of smallintestinal mucosa from the terminal ileum and fragments of colonic mucosa with no pathologic diagnosis on random colon biopsies. No vaginal discharge or bleeding. Has not had Pap test in quite some time. Has not been sexually active in quite genie time. Describes a tender sensation in the right groin into the right mons pubis. Current therapy: 1) Infusional 5-fluorouracil with mitomycin and concurrent radiation. Pt. is two weeks out from completing radiation-11/16/24. Appetite:Poor. Wt. down 6# since 11/09/24 Energy level:Poor. Denies fevers. Mouth:denies sores Resp:chronic cough, denies sob at rest Cardiac:denies chest pain/palpitations GI:+abd pain-cramps h/o Crohn's, +nausea-takes compazine, denies vomiting, moving bowels regularly :denies dysuria/hematuria Extrem:low back pain Neuro:denies symptoms of neuropathy Skin:tenderness to radiation field-using aquaphor Heme:denies bleeding, on eliquis The ROS is otherwise negative. Past medical history, appointments, medications, allergies reviewed. No changes. EXAM: BP 129/75 Pulse 80 Temp 36.5 C (97.7 F) (Temporal) Wt 80.7 kg (178 lb) LMP 01/22/2010 SpO2 95% BMI 30.55 kg/m APPEARANCE Well appearing, alert, in no acute distress, well-hydrated, well nourished. HEART RRR with normal S1 and S2, no murmurs LUNG clear to auscultation LYMPH NODES No cervical lymphadenopathy, No supraclavicular lymphadenopathy, and No axillary lymphadenopathy. ABDOMEN bowel sounds normoactive, soft, non-tender EXTREMITIES No edema NEURO Awake, alert and oriented x 3, Normal gait, and No involuntary motions. SKIN Skin color, texture, turgor normal, no suspicious rashes or lesions LABS: Latest Ref Rng 11/16/2024 11/23/2024 11/30/2024 WBC 3.70 - 11.00 k/uL 4.66 3.82 4.80 RBC 3.90 - 5.20 m/uL 3.62 (L) 3.77 (L) 3.88 (L) Hemoglobin 11.5 - 15.5 g/dL 10.2 (L) 10.8 (L) 11.2 (L) Hematocrit 36.0 - 46.0 % 31.9 (L) 33.5 (L) 35.0 (L) MCV 80.0 - 100.0 fL 88.1 88.9 90.2 MCH 26.0 - 34.0 pg 28.2 28.6 28.9 MCHC 30.5 - 36.0 g/dL 32.0 32.2 32.0 RDW-CV 11.5 - 15.0 % 21.2 (H) 21.4 (H) 20.7 (H) Platelet Count 150 - 400 k/uL 173 210 194 MPV 9.0 - 12.7 fL 9.3 9.9 10.0 Neut% % 76.2 72.8 76.0 Abs Neut (ANC) 1.45 - 7.50 k/uL 3.55 2.78 3.65 Lymph% % 3.2 5.5 5.0 Abs Lymph 1.00 - 4.00 k/uL 0.15 (L) 0.21 (L) 0.24 (L) Glades% % 15.5 16.2 13.1 Abs Glades <0.87 k/uL 0.72 0.62 0.63 Eosin% % 3.4 1.8 3.8 Abs Eosin <0.46 k/uL 0.16 0.07 0.18 Baso% % 1.1 2.1 1.5 Abs Baso <0.11 k/uL 0.05 0.08 0.07 Immature Gran % % 0.6 1.6 0.6 IMMATURE GRANS (ABS) <0.10 k/uL 0.03 0.06 0.03 NRBC /100 WBC 0.0 0.0 0.0 Absolute nRBC <0.01 k/uL <0.01 <0.01 <0.01 DTYPE Auto Auto Auto Latest Ref Rng 11/09/2024 11/23/2024 11/30/2024 Protein, Total 6.3 - 8.0 g/dL 6.5 6.4 6.4 Albumin 3.9 - 4.9 g/dL 3.7 (L) 3.6 (L) 3.5 (L) Calcium 8.5 - 10.2 mg/dL 9.7 9.2 9.2 Bilirubin, Total 0.2 - 1.3 mg/dL 0.2 0.2 0.2 Alkaline Phosphatase 34 - 123 U/L 68 68 73 AST 13 - 35 U/L 15 17 18 ALT 7 - 38 U/L 13 11 10 Glucose 74 - 99 mg/dL 103 (H) 99 104 (H) BUN 7 - 21 mg/dL 15 5 (L) 8 Creatinine 0.58 - 0.96 mg/dL 0.64 0.60 0.63 Sodium 136 - 144 mmol/L 133 (L) 133 (L) 132 (L) Potassium 3.7 - 5.1 mmol/L 4.1 4.1 4.4 Chloride 98 - 107 mmol/L 98 99 98 CO2 22 - 30 mmol/L 24 25 25 Anion Gap 8 - 15 mmol/L 11 9 9 eGFR >=60 mL/min/1.73m 98 100 99 ASSESSMENT/PLAN: 1. 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 Per Dr. 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 - Reviewed the results of her MRI with her today. T4 tumor with invasion into the vagina. Discussedplan to repeat MRI and obtain surgical evaluation/surveillance about 8 to 12 weeks after completingtherapy. Plan: -Continue holding abatacept. -Cycle 2 will be infusional 5-fluorouracil only. - OV with CBC and CMP in about a month. -Gynecology referral for cervical cancer screening. (R11.2, T45.1X5A) Chemotherapy induced nausea and vomiting Assessment: - Was intolerant to olanzapine and oral Zofran did not help. IV hydration with IV ondansetron helped significantly. - We discussed continuing Compazine as needed and we will periodically administer hydration and ondansetron as needed. Plan: - As above. (D50.0) Iron 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 blood loss Assessment: -Multifactorial iron deficiency anemia. History of Homer's lesion, Crohn's disease and bleeding from recently diagnosed tumor. -On a proton pump inhibitor which can impair oral absorption. Iron Plan: -Iron sucrose as indicated. (N32.89) Bladder spasm Assessment: -Likely secondary to radiation. -Symptoms better after temporary Ash catheter. Plan: -Has follow-up scheduled with medical urology. - Overall tolerated treatment fair d/t n/v/fatigue/decreased appetite. - Reviewed labs with pt. - Encouraged pt. to take compazine regularly. Rx sent. - Encouraged pt. to increase oral fluids/supplements. - Continue current medications. - Follow up with Dr. Joya as scheduled. - Follow up pending discussion with Dr. Bennett. - Pt. aware to call office with any questions/concerns. The patient indicates understanding of these issues and agrees with the plan. All documentation from previous visit of 11/09/24-Dr. Bennett/myself was copied and pasted, documentation has been reviewed and edited as necessary for today's visit. Delvin Ron APRN.TRACY documented in this encounterC[facility]05-[facility]25 Telephone encounter Note * Telephone Encounter - Nikkie Walter LPN - 11/26/2024 10:43 AM EDT Patient completed starter pack of Eliquis. Please send refill. Nikkie Walter LPN [facility]05-01-2025 Miscellaneous Notes* Telephone Encounter - Nikkie Walter LPN - 11/26/2024 10:43 AM EDT Patient completed starter pack of Eliquis. Please send refill. Nikkie Walter LPN documented in this encounterCleveland [facility]04-23-2025 Telephone encounter Note * Telephone Encounter - Nikkie Walter LPN - 11/18/2024 12:30 PM EDT Compazine was sent in 11/17/2024 @ 0712 to [place]. Nikkie Walter LPN [facility]04-23-2025 Miscellaneous Notes* Telephone Encounter - Nikkie Walter LPN - 11/18/2024 12:30 PM EDT Compazine was sent in 11/17/2024 @ 0712 to [place]. Nikkie Walter LPN documented in this encounterCleveland [facility]04-21-2025 NoteLake[facility]04-21-2025 History of Present illness Narrative* Elisabeth Quintero RN - 11/16/2024 11:17 AM EDT AMBULATORY PATIENT EDUCATION NOTE TOPIC: SURVIVAL SKILLS: Symptom Management READINESS TO LEARN COGNITIVE ABILITY: Alert and oriented MOTIVATION TO LEARN: Eager Interested FAMILY SUPPORT: Unable to assess - Family not present INSTRUCTION PROVIDED TO: Patient PATIENT LEARNS BEST BY: Multiple Methods FACTORS AFFECTING LEARNING: None PHYSICAL LIMITATIONS AFFECTING LEARNING: Pain , Fatigue , and Limited Mobility LEARNING RESPONSE DIAGNOSIS: C21.0 METHOD OF INSTRUCTION: Teach Back skin care Individual instruction Written instruction/Handouts Verbal instruction PATIENT / FAMILY RESPONSE: Verbalizes understanding of: SYMPTOM MANAGEMENT- Correct actions to take to manage symptoms associated with his/her disease/illness FOLLOW-UP PLAN: Patient instructed to call with any further issues Reinforce - Repeat previous content Contact information given. SUPPLEMENTAL MATERIAL: D/C sheet REFERRAL (RECOMMENDATION): None Written discharge instructions given and reviewed with patient. Patient verbalizes understanding. Encouraged to call with any questions or concerns. Instruction for 4 week phone follow up appointmentgiven by Dr. Joya. Dr Joya gave prescription for Percocet, monistat cream and advised pt to continue Silvadene, Aquaphor and Nystatin as previously advised. Pt verbalized understanding of all. Electronically Signed By: Elisabeth Quintero RN In Department: RADIATION ONCOLOGY Time spent on patient education: 10 minutes. documented in this encounterCleveland [facility]04-21-2025 Telephone encounter Note * Telephone Encounter - Lynn New LPN - 11/16/2024 7:55 AM EDT Prescription Refill Information The patient has been identified by name and date of : Yes Caregiver verified no other encounters exist for this prescription request: Yes Caregiver confirmed with patient/requestor that no other refills are due, in the near future, with this provider at this time: Yes The last office visit in the department: 11/09/2024 Does the patient have a future office visit with this provider/department: Yes Requested Prescriptions Pending Prescriptions Disp Refills prochlorperazine (COMPAZINE) 10 mg tablet [Pharmacy Med Name: Prochlorperazine Maleate 10 MG Oral Tablet] 30 tablet 0 Sig: TAKE 1 TABLET BY MOUTH EVERY 6 HOURS NEEDED Lynn New LPN November 16, 2024 7:55 AM [facility]04-21-2025 Miscellaneous Notes* Telephone Encounter - Lynn New LPN - 11/16/2024 7:55 AM EDT Prescription Refill Information The patient has been identified by name and date of : Yes Caregiver verified no other encounters exist for this prescription request: Yes Caregiver confirmed with patient/requestor that no other refills are due, in the near future, with this provider at this time: Yes The last office visit in the department: 11/09/2024 Does the patient have a future office visit with this provider/department: Yes Requested Prescriptions Pending Prescriptions Disp Refills prochlorperazine (COMPAZINE) 10 mg tablet [Pharmacy Med Name: Prochlorperazine Maleate 10 MG Oral Tablet] 30 tablet 0 Sig: TAKE 1 TABLET BY MOUTH EVERY 6 HOURS NEEDED Lynn New LPN November 16, 2024 7:55 AM documented in this encounterC[facility]04-21-2025 NoteL[facility]04-15-2025 NoteL[facility]04-15-2025 History of Present illness Narrative* Kari Harrington RN - 11/10/2024 9:42 AM EDT Radiation Therapy - Nursing Note (OTV) PATIENT NAME: Marimar Wang PATIENT November 10, 2024 [facility] [place]/LOCATION: [facility] NOTE TYPE: RECTAL Subjective Data see pain assessment Additional Data Do you want to see a Manager Lsw? No, strongly encouraged but does not want to Status: Post-menopausal. Stress Scale: On a scale of 0 to 10, what number best describes how much distress you have experienced in the past week?(0 being no distress and 10 being extreme distress) 4 Social work notified: Pt denied need to see social work instructor at this time. Nursing Assessment Fatigue: moderate; causing difficulty performing some activities Appetite: poor Nutritional Intake: Regular oral intake. and drinking a protein shakes a day but not much else Weight Gain/Loss: Yes Ambulatory weight history: Last 6 Encounter Wt Readings: Date: Wt: 11/09/2024 83.9 kg (184 lb 15.5 oz) 10/30/2024 88.2 kg (194 lb 8 oz) 10/27/2024 88.6 kg (195 lb 6.4 oz) 10/26/2024 88 kg (194 lb) 10/20/2024 89 kg (196 lb 3.2 oz) 10/16/2024 88.6 kg (195 lb 5.2 oz) Nausea:Nausea does not interfere with the ability to eat Vomiting: None Bowel Function: had one episode of large diarrhea did not take imodium had cramps with it but none since Erythema/Hyperpigmentation:severe right groin area has nystatin cream by med oncology skin is pink in crack of buttocks, Desquamation:moist desquamation just around the rectum Rash:none Skin Care: Aquaphor and Silvadene Skin Sensation: Within Normal Limits Focused Assessment RECTAL: Dysuria: none and Rectal pain mild pain not interfering with function pain she is expeirencing is from [facility] since fall a few weeks ago SIGNED by: Kari Harrington RN * Sidney Joya MD - 11/10/2024 9:29 AM EDT Radiation Oncology - On Treatment Review (OTR) Note PATIENT NAME: Marimar Wang PATIENT DIAGNOSIS: Clinical stage III, cT4 cN0, 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 It's p16 positive. COURSE: definitive and concurrent chemotherapy (Mitomycin and 5-FU) AREA TREATED: Pelvis/groin CURRENT DOSE: 4680 cGy in 26 fx PLANNED DOSE: 5400 cGy in 30 fx Status: Post-menopausal SUBJECTIVE: She has nausea. EXAM: KPS: 90 General Appearance: Alert and oriented. No acute distress. Moderate erythema/hyperpigmentation in the perianal skin. Small area of dry desquamation. IMAGING/LAB RESULTS: CBC on 11/09/24 reviewed. Treatment chart checked: Yes Patient treatment site reviewed and verified:Yes CBCTs reviewed and current:Yes Medications started: None ASSESSMENT/PLAN: Clinically stable. Toxicity within expected parameters. Continue radiation treatment as planned. Sidney Joya MD documented in this encounterCleveland Clinic [facility]04-15-2025 NoteLake[facility]04-14-2025 NoteL[facility]04-14-2025 History of Present illness Narrative* Delvin Ron APRN.TRACY - 11/09/2024 11:11 AM EDT Chief Complaint Patient presents with: Established Patient HPI: Marimar Wang is a 64 year old female who presents here today for follow up rectal cancer. Per Dr. Bennett's previous note: Initial consultation: Has h/o GI bleed. HH repair . Vanessa fundoplication. 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 Sees Dr. Pitts. EGD earlier this year for reflux. Esophageal dilation. B. esophagus as well. Still had hiatal hernia. Orencia doesn't help this. Diagnosed with Crohn's last year. Colonoscopy 10/2022. Congested mucosa in the ascending colon, hepatic flexure and descending colon. Has history of pancreatic insufficiency. Previous capsule endoscopy in 2018. Tired all the time. Diagnosed with RA in 2011. On Orencia. Helps hands. Arava. Can't take oral iron. They make me so sick. They won't even stay down. Has blood on toilet tissue when wipes. Attributed to Crohn's. She had IV iron here in the past. OV 07/15/2025: Presented to the ED at [facility] on 09/02[facility]2024 with complaint of perianal pain that had been going on for about a week. A CT scan of the abdomen pelvis was obtained and it demonstrated in the right perineum with thick walled 5.4 x 1.6 cm fluid collection with adjacent fat stranding most compatible with an abscess. No other abnormalities. Other than postsurgical changes of Vanessa fundoplication. She was taken to the OR. Once under general anesthesia, careful exam demonstrated what appeared to be a perianal mass. It extended jail external to the anal verge and another 2 to 3 cm beyond the anal verge towards the rectum. It was hard. Highly suspicious for malignancy. The mass was incised and bloody fluid return. No pus was observed in the cavity. The piece of tissue was excised for pathology. The area was cauterized and Gelfoam packing was inserted. Pathology: Perianal mass, biopsy: Focal area of moderately differentiated invasive squamous cell carcinoma. Extensive squamous cell carcinoma in situ. See comment. COMMENT Immunohistochemistry ([id number]) for surrogate HPV marker (p16) will be performed, and results will be reported separately. P16 (E6H4) positive, block staining Ki-67 (30-9) positive, high She has a history of pancreatic insufficiency and uses PEP. Also has a history of Crohn's disease and is on budesonide. Continues to have about 1-2 watery bowel movements a day. She has not observed any blood in her stools. She describes her appetite as being fair. She has a continual feeling of nausea. She has had esophageal strictures and has undergone EGD with dilation in the past. Most recent colonoscopy was 11/06/2022. At that time the perianal and digital rectal exams were noted normal. There were a few small mouth diverticula observed in the rectosigmoid colon as well as sigmoid colon. There was an area of mildly congested mucosa in the descending colon, right flexure and in the ascending colon. Biopsies were obtained. No polyps. Pathology demonstrated fragments of smallintestinal mucosa from the terminal ileum and fragments of colonic mucosa with no pathologic diagnosis on random colon biopsies. No vaginal discharge or bleeding. Has not had Pap test in quite some time. Has not been sexually active in quite genie time. Describes a tender sensation in the right groin into the right mons pubis. Current therapy: 1) Infusional 5-fluorouracil with mitomycin and concurrent radiation. Had radiation this morning. Has 4 treatments left. Appetite:Poor. Wt. down 10# since 10/30/24 Energy level:Poor. Denies fevers. Mouth:1 sore-has BMX Resp:chronic cough, denies sob at rest Cardiac:denies chest pain/palpitations GI:+abd pain-cramps h/o Crohn's, +nausea-takes compazine, denies vomiting-occ. dry heaves, moving bowels regularly-occ. discharge :denies dysuria/hematuria Extrem:low back pain Neuro:denies symptoms of neuropathy Skin:tenderness to radiation field-using aquaphor Heme:+nose bleeds, on eliquis The ROS is otherwise negative. Past medical history, appointments, medications, allergies reviewed. No changes. EXAM: BP 140/70 Pulse 99 Temp 36.7 C (98.1 F) Wt 83.9 kg (184 lb 15.5 oz) LMP 01/22/2010 SpO2 94% BMI 31.75 kg/m APPEARANCE Well appearing, alert, in no acute distress, well-hydrated, well nourished. HEART RRR with normal S1 and S2, no murmurs LUNG clear to auscultation LYMPH NODES No cervical lymphadenopathy, No supraclavicular lymphadenopathy, and No axillary lymphadenopathy. ABDOMEN bowel sounds normoactive, soft, non-tender, non-distended, without organomegaly or palpablemasses EXTREMITIES No edema NEURO Awake, alert and oriented x 3 and No involuntary motions. LABS: Latest Ref Rng 10/26/2024 10/30/2024 11/09/2024 WBC 3.70 - 11.00 k/uL 2.35 (L) 4.02 2.61 (L) RBC 3.90 - 5.20 m/uL 4.08 3.99 3.74 (L) Hemoglobin 11.5 - 15.5 g/dL 11.0 (L) 10.9 (L) 10.6 (L) Hematocrit 36.0 - 46.0 % 34.8 (L) 34.4 (L) 32.4 (L) MCV 80.0 - 100.0 fL 85.3 86.2 86.6 MCH 26.0 - 34.0 pg 27.0 27.3 28.3 MCHC 30.5 - 36.0 g/dL 31.6 31.7 32.7 RDW-CV 11.5 - 15.0 % 19.6 (H) 20.9 (H) 20.2 (H) Platelet Count 150 - 400 k/uL 147 (L) 179 219 MPV 9.0 - 12.7 fL 9.6 9.7 9.9 Neut% % 68.1 78.6 78.6 Abs Neut (ANC) 1.45 - 7.50 k/uL 1.60 3.16 2.05 Lymph% % 15.3 7.7 6.5 Abs Lymph 1.00 - 4.00 k/uL 0.36 (L) 0.31 (L) 0.17 (L) Glades% % 13.6 11.7 9.6 Abs Glades <0.87 k/uL 0.32 0.47 0.25 Eosin% % 0.4 0.5 3.4 Abs Eosin <0.46 k/uL <0.03 <0.03 0.09 Baso% % 1.7 1.0 1.1 Abs Baso <0.11 k/uL 0.04 0.04 0.03 Immature Gran % % 0.9 0.5 0.8 IMMATURE GRANS (ABS) <0.10 k/uL <0.03 <0.03 <0.03 NRBC /100 WBC 0.0 0.0 0.0 Absolute nRBC <0.01 k/uL <0.01 <0.01 <0.01 DTYPE Auto Auto Auto Latest Ref Rng 10/19/2024 10/30/2024 11/09/2024 Protein, Total 6.3 - 8.0 g/dL 6.6 6.9 6.5 Albumin 3.9 - 4.9 g/dL 3.7 (L) 3.9 3.7 (L) Calcium 8.5 - 10.2 mg/dL 9.2 9.6 9.7 Bilirubin, Total 0.2 - 1.3 mg/dL 0.2 0.4 0.2 Alkaline Phosphatase 34 - 123 U/L 83 81 68 AST 13 - 35 U/L 18 21 15 ALT 7 - 38 U/L 13 17 13 Glucose 74 - 99 mg/dL 103 (H) 111 (H) 103 (H) BUN 7 - 21 mg/dL 9 6 (L) 15 Creatinine 0.58 - 0.96 mg/dL 0.64 0.65 0.64 Sodium 136 - 144 mmol/L 136 136 133 (L) Potassium 3.7 - 5.1 mmol/L 3.2 (L) 3.7 4.1 Chloride 98 - 107 mmol/L 101 102 98 CO2 22 - 30 mmol/L 23 26 24 Anion Gap 8 - 15 mmol/L 12 8 11 eGFR >=60 mL/min/1.73m 98 98 98 ASSESSMENT/PLAN: 1. Anal cancer (HCC) - ICD9: 154.3, ICD10: C21.0 (primary diagnosis) 2. 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 Per Dr. 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 - Reviewed the results of her MRI with her today. T4 tumor with invasion into the vagina. Discussedplan to repeat MRI and obtain surgical evaluation/surveillance about 8 to 12 weeks after completingtherapy. Plan: -Continue holding abatacept. -Cycle 2 will be infusional 5-fluorouracil only. - OV with CBC and CMP in about a month. -Gynecology referral for cervical cancer screening. (R11.2, T45.1X5A) Chemotherapy induced nausea and vomiting Assessment: - Was intolerant to olanzapine and oral Zofran did not help. IV hydration with IV ondansetron helped significantly. - We discussed continuing Compazine as needed and we will periodically administer hydration and ondansetron as needed. Plan: - As above. (D50.0) Iron 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 blood loss Assessment: -Multifactorial iron deficiency anemia. History of Homer's lesion, Crohn's disease and bleeding from recently diagnosed tumor. -On a proton pump inhibitor which can impair oral absorption. Iron Plan: -Iron sucrose as indicated. (N32.89) Bladder spasm Assessment: -Likely secondary to radiation. -Symptoms better after temporary Ash catheter. Plan: -Has follow-up scheduled with medical urology. - Overall tolerated treatment fair d/t n/v/fatigue/decreased appetite. - Reviewed labs with pt. - Encouraged pt. to take compazine regularly. - Encouraged pt. to increase oral fluids/supplements. - Continue current medications. - Follow up with Dr. Joya as scheduled. - Follow up as scheduled. - Pt. aware to call office with any questions/concerns. The patient indicates understanding of these issues and agrees with the plan. All documentation from previous visit of 10/30/24-Dr. Bennett was copied and pasted, documentation has been reviewed and edited as necessary for today's visit. Delvin Ron APRN.TRACY documented in this encounterCleveland Clinic [facility]04-14-2025 NoteLakehealth [facility]04-14-2025 History of Present illness Narrative* Latoya Cary RN - 11/09/2024 7:25 AM EDT Patient is here for IVAD port flush/blood draw per Nursing Thornton protocol. IVAD is located in right upper chest. Site cleansed with Chloraprep IVAD accessed with a #20 gauge 3/4 non-coring Gripper needle Flush with 5cc's Normal Saline. Blood Return: Good. 10 cc's blood aspirated and discarded. Blood drawn for CBC and CMP. Flushed with: 20 ml Normal Saline. Non-coring needle removed. Paper tape applied to puncture site. Site negative for redness, edema or tenderness. Patient tolerated procedure well. documented in this encounterCleveland Clinic [facility]04-11-2025 NoteHNO ID: [id number] Author: BETSEY GUIDO RN Service: ? Author Type: Registered Nurse Type: Progress Notes Filed: 11/06/2024 09:56 Note Text: Denies any pain or discomfort at this time. States had occasional nausea during treamtentCOhioHealth [facility]04-11-2025 History of Present illness Narrative* Betsey Guido RN - 11/06/2024 9:56 AM EDT Denies any pain or discomfort at this time. States had occasional nausea during treamtent documented in this encounterCleveland Clinic [facility]04-10-2025 Telephone encounter Note * Telephone Encounter - Raul Hendrix LISW - 11/05/2024 9:51 AM EDT SOCIAL WORK FOLLOW UP NOTE: [facility] Date of service: November 05, 2024 Marimar Wang is being seen for a follow up social work visit. Today's visit includes: patient TOPICS ADDRESSED: SW met with pt this date regarding financial concerns. Pt reports the rolator prescription we had sent to [facility] is going to cost her $59/month. Pt is inquiring if there is a different provider that would possible be cheaper. Pt asking if [facility] is an option. SW to call [facility] and obtain quote if possible. Pt also reported concern there her clinic bill is probably really big by now. Pt alluded to overall financial hardship. SW discussed with pt the [employer] katelyn and provided pt with documents to complete and return to . SW also to refer pt to financial navigation and also look for grants and foundation assistance available to pt to ease her financial burden. Pt appreciative and in agreement with whatever you can find. SW to connect with pt after some potential resources have bene identified. No other needs identified at this time. PLAN: Assist with financial support applications and Continue follow up as needed F/U APPOINTMENT: PRN Assigned SW listed in Care Team tab: Yes HARITHA Massey [facility]04-10-2025 Miscellaneous Notes* Telephone Encounter - Raul Hendrix LISW - 11/05/2024 9:51 AM EDT SOCIAL WORK FOLLOW UP NOTE: [facility]ER CENTER Date of service: November 05, 2024 Marimar Wang is being seen for a follow up social work visit. Today's visit includes: patient TOPICS ADDRESSED: SW met with pt this date regarding financial concerns. Pt reports the rolator prescription we had sent to [facility] is going to cost her $59/month. Pt is inquiring if there is a different provider that would possible be cheaper. Pt asking if [facility] is an option. SW to call [facility] and obtain quote if possible. Pt also reported concern there her clinic bill is probably really big by now. Pt alluded to overall financial hardship. SW discussed with pt the [facility] katelyn and provided pt with documents to complete and return to . SW also to refer pt to financial navigation and also look for grants and foundation assistance available to pt to ease her financial burden. Pt appreciative and in agreement with whatever you can find. SW to connect with pt after some potential resources have bene identified. No other needs identified at this time. PLAN: Assist with financial support applications and Continue follow up as needed F/U APPOINTMENT: PRN Assigned SW listed in Care Team tab: Yes LYLE Massey-S documented in this encounterC[facility]2025 NoteL[facility]2025 History of Present illness Narrative* Kari Harrington, LÓPEZ - 11/03/2024 9:40 AM EDT Radiation Therapy - Nursing Note (OTV) PATIENT NAME: Marimar Wang PATIENT November 03, 2024 [facility] [place]/LOCATION: [place] NURSING NOTE TYPE: RECTAL Subjective Data see pain assessment, using silvadene and aquaphor Additional Data Do you want to see a Manager Lsw? No Status: Post-menopausal. Stress Scale: On a scale of 0 to 10, what number best describes how much distress you have experienced in the past week?(0 being no distress and 10 being extreme distress) 4 Social work notified: Pt denied need to see social work instructor at this time. Nursing Assessment Fatigue: increased fatigue over baseline but not altering normal activities Appetite: poor Nutritional Intake: Regular oral intake. Weight Gain/Loss: Not applicable Ambulatory weight history: Last 6 Encounter Wt Readings: Date: Wt: 10/30/2024 88.2 kg (194 lb 8 oz) 10/27/2024 88.6 kg (195 lb 6.4 oz) 10/26/2024 88 kg (194 lb) 10/20/2024 89 kg (196 lb 3.2 oz) 10/16/2024 88.6 kg (195 lb 5.2 oz) 10/13/2024 88.2 kg (194 lb 6.4 oz) Nausea:None Vomiting: None Bowel Function: normal bowel movements Erythema/Hyperpigmentation: mild to moderate Desquamation:none Rash:none Skin Care: Aquaphor and Silvadene Skin Sensation: Within Normal Limits Focused Assessment RECTAL: Rectal pain moderate pain: pain or analgesics interfering with function, but not interfering with activities of daily living and pt has tailbone pain and difficult to differentiate from that and skin type pain SIGNED by: Kari Harrington RN * Sidney Joya MD - 11/03/2024 9:33 AM EDT Radiation Oncology - On Treatment Review (OTR) Note PATIENT NAME: Marimar Wang PATIENT DIAGNOSIS: Clinical stage III, cT4 cN0, 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 It's p16 positive. COURSE: definitive and concurrent chemotherapy (Mitomycin and 5-FU) AREA TREATED: Pelvis/groin CURRENT DOSE: 3780 cGy in 21 fx PLANNED DOSE: 5400 cGy in 30 fx Status: Post-menopausal SUBJECTIVE: She has soreness in the tailbone area from an episode of fall. She states that she wentto ER after the fall and she was told, CT pelvis was OK. She denies any nausea or diarrhea. EXAM: KPS: 90 General Appearance: Alert and oriented. No acute distress. Moderate hyperpigmentation in the perianal skin. No desquamation. IMAGING/LAB RESULTS: CBC on 10/30/24 reviewed. Treatment chart checked: Yes Patient treatment site reviewed and verified:Yes CBCTs reviewed and current:Yes Medications started: None ASSESSMENT/PLAN: Clinically stable. Toxicity within expected parameters. Continue radiation treatment as planned. Sidney Joya MD documented in this encounterCleveland [facility]2025 NoteL[facility]04-07-2025 NoteLake[facility]04-07-2025 History of Present illness Narrative* Estefania Shine RN - 11/02/2024 11:02 AM EDT Patient arrives after radiation treatment with walker. States that she tripped and fell Saturday night using the bedside commode. She lives with her daughter and they went to the [facility] ER where she was evaluated. Report received and states scan of head and hips showed no bleed or fracture respectively.Pt states that she is bruised on my bottom and goes to right hip Taking percocet for the pain that was Rx from [facility] and controlling pain. Port was placed Saturday afternoon and is ecchymotic. Pt has been applying ice that is relieving mostof the pain. Port is working with a good blood return. Dr Bennett updated on the above and no additional orders received. States to proceed with treatment. Rx sent for Emla cream for port. Estefania Shine RN documented in this encounterCleveland Clinic [facility]ucl[facility]04-04-2025 NoteLake[facility]04-04-2025 History of Present illness Narrative* Josh Bennett DO - 10/30/2024 9:18 AM EDT HPI: The patient is a 64-year-old female with a past medical history as outlined below. Initial consultation: Has h/o GI bleed. HH repair . Vanessa fundoplication. 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 Sees Dr. Pitts. EGD earlier this year for reflux. Esophageal dilation. B. esophagus as well. Still had hiatal hernia. Orencia doesn't help this. Diagnosed with Crohn's last year. Colonoscopy 10/2022. Congested mucosa in the ascending colon, hepatic flexure and descending colon. Has history of pancreatic insufficiency. Previous capsule endoscopy in 2018. Tired all the time. Diagnosed with RA in 2011. On Orencia. Helps hands. Arava. Can't take oral iron. They make me so sick. They won't even stay down. Has blood on toilet tissue when wipes. Attributed to Crohn's. She had IV iron here in the past. OV 07/15/2025: Presented to the ED at [facility] on 09/02/2024 with complaint of perianal pain that had been going on for about a week. A CT scan of the abdomen pelvis was obtained and it demonstrated in the right perineum with thick walled 5.4 x 1.6 cm fluid collection with adjacent fat stranding most compatible with an abscess. No other abnormalities. Other than postsurgical changes of Vanessa fundoplication. She was taken to the OR. Once under general anesthesia, careful exam demonstrated what appeared to be a perianal mass. It extended jail external to the anal verge and another 2 to 3 cm beyond the anal verge towards the rectum. It was hard. Highly suspicious for malignancy. The mass was incised and bloody fluid return. No pus was observed in the cavity. The piece of tissue was excised for pathology. The area was cauterized and Gelfoam packing was inserted. Pathology: Perianal mass, biopsy: Focal area of moderately differentiated invasive squamous cell carcinoma. Extensive squamous cell carcinoma in situ. See comment. COMMENT Immunohistochemistry ([id number]) for surrogate HPV marker (p16) will be performed, and results will be reported separately. P16 (E6H4) positive, block staining Ki-67 (30-9) positive, high She has a history of pancreatic insufficiency and uses PEP. Also has a history of Crohn's disease and is on budesonide. Continues to have about 1-2 watery bowel movements a day. She has not observed any blood in her stools. She describes her appetite as being fair. She has a continual feeling of nausea. She has had esophageal strictures and has undergone EGD with dilation in the past. Most recent colonoscopy was 11/06/2022. At that time the perianal and digital rectal exams were noted normal. There were a few small mouth diverticula observed in the rectosigmoid colon as well as sigmoid colon. There was an area of mildly congested mucosa in the descending colon, right flexure and in the ascending colon. Biopsies were obtained. No polyps. Pathology demonstrated fragments of smallintestinal mucosa from the terminal ileum and fragments of colonic mucosa with no pathologic diagnosis on random colon biopsies. No vaginal discharge or bleeding. Has not had Pap test in quite some time. Has not been sexually active in quite genie time. Describes a tender sensation in the right groin into the right mons pubis. Current therapy: 1) Infusional 5-fluorouracil with mitomycin and concurrent radiation. Presents for ongoing oncologic management. Interim history: Struggled with nausea first 2 weeks. No significant neutropenia. Diagnosed with bladder spasms. Ash inserted. Was urinating around it and had blood, so she removed it. Still has frequency, but can void better. No further gross hematuria. Able to move bowels--burning sensation. Using Aquaphor consistently. PAST MEDICAL HISTORY Diagnosis Date Asthma (HCC) Homer lesion, acute 01/30/2019 Carotid artery stenosis bilateral- US in [facility] COPD (chronic obstructive pulmonary disease) (HCC) Crohn disease (HCC) Depression Diverticulosis Fibromyalgia GERD (gastroesophageal reflux disease) GI bleed 02/2019 Hiatal hernia Repaired 05/07/19 Hyperlipidemia Hypertension Insomnia Iron deficiency anemia Iron deficiency anemia Osteoarthritis Osteoporosis Piriformis syndrome PVC's (premature ventricular contractions) Rheumatoid arthritis Sjogren's disease (HCC) Vitamin D deficiency PAST SURGICAL HISTORY Procedure Laterality Date ARTHRP KNE CONDYLE&PLATU MEDIAL&LAT COMPARTMENTS 2009 Total left knee surgery COLONOSCOPY FLX DX W/COLLJ SPEC WHEN PFRMD 04/11/2015 diverticulosis, no specimens collected Dr. Tapia COLONOSCOPY FLX DX W/COLLJ SPEC WHEN PFRMD 09/23/[address] Tapia EGD 01/30/2019 large hiatal hernia with Homer erosions, likely source of GI bleed Dr. Rudolph EGD 09/15/2007 patulous GE junction, nonobstructive Schatzki's ring, bile reflux of stomach, hiatal hernia, neg H pylori EGD EUS N/A 07/07/2020 3 cm sliding hiatal hernia, no obst Schatzki's ring, mild duodenitis, mild/moderate gastritis EGD TRANSORAL BIOPSY SINGLE/MULTIPLE 02/17/2020 retained contents in stomach, bxs negative Dr. Pat ESOPHAGOGASTRODUODENOSCOPY TRANSORAL DIAGNOSTIC 05/07/2016 sliding hiatal hernia, no source of GI bleed Dr. Laureano ESOPHAGOGASTRODUODENOSCOPY TRANSORAL DIAGNOSTIC 09/23/2017 normal, bxs negative Dr. Tapia GI TRC IMG INTRALUMINAL ESOPHAGUS-ILEUM W/I&R 10/04/2017 Normal smallbowel Capsule endosocpy HIATAL HERNIA REPAIR HX 04/2019 LAPS RPR PARAESPHGL HRNA INCL FUNDPLSTY W/MESH 05/07/2019 Dr. Pat MRI BRAIN W/O CONTRAST 07/20/2011 PARTIAL HIP REPLACEMENT Left 2020 PAST SURGICAL HISTORY OF 1983, 1986 2 C Sections PAST SURGICAL HISTORY OF 1982 Left shoulder, has screw in shoulder PAST SURGICAL HISTORY OF 09/02/2024 biopsy perianal mass TOTAL KNEE REPLACEMENT Right 2021 potassium chloride (K-TAB) 10 mEq tablet Take 1 tablet by mouth two times a day. prochlorperazine (COMPAZINE) 10 mg tablet Take 1 tablet by mouth every 6 hours as needed. hvoqpufuojALPMC-onmfzr-tfnjidaio (BMX 1:1:1) 1:1:1 liqd Take 10 mL by mouth every 4 hours as needed. ondansetron (ZOFRAN) 8 mg tablet Take 1 tablet by mouth every 8 hours as needed (For chemotherapy induced nausea and vomiting.). cholecalciferol, Vitamin D3, (VITAMIN D3) 1,250 mcg (50,000 unit) cap capsule Take 1 capsule by mouth every other week. oxyCODONE-acetaminophen (PERCOCET) 5-325 mg tablet Take 1 tablet by mouth every 6 hours as needed. leflunomide (ARAVA) 20 mg tablet Take 1 tablet by mouth once daily meclizine (ANTIVERT) 25 mg tab Take 25 mg by mouth three times a day as needed (for dizziness). atorvastatin (LIPITOR) 80 mg tablet Take 80 mg by mouth once daily. sditxs-mczfessi-ynbjrkg (CREON 36) 36,000-114,000- 180,000 unit delayed release capsule Take 1-3 capsules by mouth with meals and at bedtime. With snacks also furosemide (LASIX) 20 mg tablet Take 20 mg by mouth once daily. budesonide, enteric coated (ENTOCORT EC) 3 mg 24 hr capsule Take 2 capsules by mouth every afternoon. pantoprazole DR (PROTONIX) 40 mg tablet Take 40 mg by mouth once daily. dicyclomine (BENTYL) 20 mg tablet Take 10 mg by mouth three times a day. VITAMIN B-12 1,000 mcg tab DISSOLVE 1 TABLET BY MOUTH ONCE DAILY amLODIPine (NORVASC) 5 mg tablet Take 7.5 mg by mouth once daily. FLUoxetine (PROZAC) 20 mg capsule Take 3 capsules by mouth once daily. albuterol HFA (VENTOLIN HFA) 90 mcg/actuation inhaler Inhale 2 Puffs as instructed every 4 hours asneeded for wheezing/shortness of breath. buPROPion XL (WELLBUTRIN XL) 150 mg 24 hr tablet Take 1 tablet by mouth once daily. mometasone (NASONEX) 50 mcg/actuation nasal spray Use 2 Sprays in the nose once daily. Rinse mouth after use. acetaminophen (TYLENOL) 325 mg tablet Take by mouth every 6 hours as needed. albuterol (PROVENTIL) 2.5 mg /3 mL (0.083 %) nebulizer solution Use 3 mL via nebulizer every 6 hours as needed for Wheezing/Shortness of Breath. >Nebulizer For Home Nebulizer for home use. Diagnosis: Moderate persistent asthma with acute exacerbation and pneumonia apixaban (ELIQUIS) 5 mg (74 tabs) Take 2 tablets (10 mg) by mouth twice daily for 7 days. Then take1 tablet (5 mg) by mouth twice daily for 23 days (Patient not taking: Reported on 10/30/2024) iv contrast (will be provided with radiology test) CT Chest W -Inject, intravenously, once for 1 dose.No IV access, insert saline lock prior to the beginning of sedation, infusion, injection of imaging exam. Discontinue saline lock post exam. If Pt. has a central line or IVAD, may access for administration according to line specific nursing protocol. Once exam is complete flush line and de-accessaccording to line specific nursing protocol in the CT contrast administration guidelines link. clopidogrel (PLAVIX) 75 mg tablet Take 75 mg by mouth once daily. (Patient not taking: Reported on 10/30/2024) abatacept/maltose (ORENCIA, WITH MALTOSE, INTRAVENOUS) Inject intravenously. ALLERGIES Allergen Reactions Cymbalta [Duloxetin* Intolerance Headaches Nsaids (Non-Steroid* Anaphylaxis Had anaphylactic reaction to Aleve Vibramycin [Doxycyc* Anaphylaxis Dilaudid [Hydromorp* Vomiting Morphine Vomiting Horse/Equine Contai* Swelling Vicodin [Hydrocodon* Vomiting Can take if given antiemetic at same time Social History Tobacco Use Smoking status: Former Current packs/day: 0.00 Average packs/day: 1 pack/day for 31.0 years (31.0 ttl pk-yrs) Types: Cigarettes Start date: 01/02/1984 Quit date: 01/01/2015 Years since quittin.8 Smokeless tobacco: Never Tobacco comments: ETS: Father in childhood home. Active smoker in current home. Vaping Use Vaping status: Never Used Substance Use Topics Alcohol use: No Drug use: Never FAMILY HISTORY Problem Relation Age of Onset other (Anemia) Mother Anemia other (other) Mother other (pulmonary hypertention) Mother other (ESRD) Mother Hypertension Mother Stroke Mother Cataract Mother Asthma Mother Kidney failure Mother Heart Father Glaucoma Father Ischemic Heart Disease Father age 42 from [place] Hypertension Sister other (Other) Brother 18 MVA Angioedema Maternal Grandmother other (CHF) Maternal Grandfather Hypertension Paternal Grandmother Stroke Paternal Grandfather Depression Daughter other (PTSD) Daughter other (Anxiety) Daughter other (svt) Daughter Diabetes Daughter REVIEW OF SYSTEMS: Constitutional: No episodes of fever and night sweats. Not significantly fatigued. Normal appetite. Neuro: No MATHEW, vertigo, dizziness and imbalance. No symptoms of neuropathy. HEENT: No recent change in voice, vision or hearing. Resp: No cough, wheeze and hemoptysis. No shortness of breath at rest. No TY. CVS: No exertional chest pain, PND, orthopnea and LE edema. GI: See above. : No dysuria or gross hematuria. Endo: No hot flashes. No polyuria and polydipsia. No heat and cold intolerance. Derm: No current rash. No history of jaundice or diffuse pruritis. Heme: No unusual bleeding and unexplained bruising. Psych: Normal mood. PHYSICAL EXAM: Vitals: Blood pressure 125/75, pulse 77, temperature 36.4 C (97.6 F), temperature source Temporal, weight 88.2 kg (194 lb 8 oz), last menstrual period 01/22/2010, SpO2 96%. Well-appearing and in no acute distress. EYES: Sclerae are anicteric bilaterally. CARDIOVASCULAR: Rhythm is regular. ABDOMEN: The abdomen is nondistended. No tenderness. SKIN: No jaundice. 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 - Reviewed the results of her MRI with her today. T4 tumor with invasion into the vagina. Discussedplan to repeat MRI and obtain surgical evaluation/surveillance about 8 to 12 weeks after completingtherapy. Plan: -Continue holding abatacept. -Cycle 2 will be infusional 5-fluorouracil only. - OV with CBC and CMP in about a month. -Gynecology referral for cervical cancer screening. (R11.2, T45.1X5A) Chemotherapy induced nausea and vomiting Assessment: - Was intolerant to olanzapine and oral Zofran did not help. IV hydration with IV ondansetron helped significantly. - We discussed continuing Compazine as needed and we will periodically administer hydration and ondansetron as needed. Plan: - As above. (D50.0) Iron 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 blood loss Assessment: -Multifactorial iron deficiency anemia. History of Homer's lesion, Crohn's disease and bleeding from recently diagnosed tumor. -On a proton pump inhibitor which can impair oral absorption. Iron Plan: -Iron sucrose as indicated. (N32.89) Bladder spasm Assessment: -Likely secondary to radiation. -Symptoms better after temporary Ash catheter. Plan: -Has follow-up scheduled with medical urology. Portions of this documentation were copied and pasted from my previous office visit note dated 09/10/2024 in order to provide a cohesive continuity of the history. The note has been reviewed and edited and updated as necessary. Josh Bennett DO documented in this encounterCleveland Clinic Eucl[facility] Hospital04-04-2025 Radiology Diagnostic study note [facility] Imaging Services [address] [place] [address] HIP, UNI W/ Pelvis 2-3 Views MR#: [id number] Acct: [id number] Name: MARIMAR WANG Rep #: [id number] : 1960 F 64 From: Jonel Mariee MD PCP: [facility] Arriola Status: REG E R Study:HIP, UNI W/ Pelvis 2-3 Views Date of Ex am: 10/30/24 Exam# [id number] Ordering Dr: Aleyda Ambriz DO PROCEDURE: HIP, UNI W/ PELVIS 2-3 VIEWS 10/30/2024 REASON FOR EXAM: PAIN TECHNIQUE: AP pelvis and two-view right hip and two-view left hip, 5 total images COMPARISON: None available FINDINGS: Pelvis and bilateral hips: Status post left hip replacement. No fracture or dislocation. Degenerative changes of the lower left sacroiliac joint noted. Right SI joint and pubic symphysis appear within limits. Lower lumbar spondylosis/discogenic change. Vascular calcifications noted. RAD/HIP, UNI W/ Pelvis 2-3 Views IMPRESSION: Status post left hip replacement. No fracture or dislocation. Degenerative changes of the lower left sacroiliac joint noted. Reading Location: [id number] CC: 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-Marga Arriaga; aGudencio Ambriz DO ~ Bike Mechanic: Signed [facility]04-04-2025 Radiology Diagnostic study note [facility] Imaging Services [address] [place] [id number] Brain/Head without Contrast MR#: [id number] Acct: [id number] Name: MARIMAR WANG Rep #: [id number] : 1960 F 64 From: Jonel Mariee MD PCP: [facility] Status: REG E R Study:Brain/Head without Contrast Date of Exa m: 10/30/24 Exam# [id number] Ordering Dr: Aleyda Ambriz DO PROCEDURE: BRAIN/HEAD WITHOUT CONTRAST 10/30/2024 REASON FOR EXAM: FALL TECHNIQUE: Head CT without intravenous contrast. Coronal and Sagittal reconstruction serieswere provided. One or more dose reduction techniques were used (e.g., Automated exposure control, adjustment of the mA and/or kV according to patient size, use of iterative reconstruction technique. RADIATION DOSE SUMMARY: CTDlvol: 44.99 mGy DLP: 796.11 mGycm COMPARISON: None available FINDINGS: No intracranial hemorrhage, mass effect or calvarial fracture. The ventricles are within limits andmidline. The mendez-white differentiation appears preserved. Partially empty appearing sella. The visualized paranasal sinuses, mastoids and orbits appear within limits. Bilateral parasellar carotid calcification. CT/Brain/Head without Contrast IMPRESSION: No intracranial hemorrhage, mass effect or calvarial fracture. Reading Location: [id number] CC: [facility]; Gaudencio Ambriz DO ~ Bike Mechanic: Signed [facility]04-02-2025 Telephone encounter Note* Telephone Encounter - Kari Harrington RN - 10/28/2024 1:58 PM EDT Pt was seen at [facility] ER over weekend and had a ash cath inserted due to c/o bladder pain and spasm. Dr Viraj Abreu (covering for DR Joya) was aware of this during OTV 10/27/24. Herurine from [facility] was negative. Her residual urine was 100ml.Dr Abreu told patient she m He asked that Dr Joya address the issue of leaving ash in today 10/28/24. 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 She also reports she did hear from the urologist yesterday and they wanted her to removal ash Saturday night and then has appointment Saturday morning. So she has been voiding well, pain is gone and she will keep appointment on Saturday. She understands to go to ER if she can not void or feels she is not emptying. [facility]04-02-2025 Miscellaneous Notes* Telephone Encounter - Kari Harrington RN - 10/28/2024 1:58 PM EDT Pt was seen at [facility] ER over weekend and had a ash cath inserted due to c/o bladder pain and spasm. Dr Viraj Abreu (covering for DR Joya) was aware of this during OTV 10/27/24. Herurine from [facility] was negative. Her residual urine was 100ml.Dr Abreu told patient she m He asked that Dr Joya address the issue of leaving ash in today 10/28/24. 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 She also reports she did hear from the urologist yesterday and they wanted her to removal ash Saturday night and then has appointment Saturday morning. So she has been voiding well, pain is gone and she will keep appointment on Saturday. She understands to go to ER if she can not void or feels she is not emptying. documented in this encounterCleveland Clinic Eucl[facility] Hospital04-01-2025 NoteLakehealth [facility]04-01-2025 History of Present illness Narrative* Ricci Abreu MD - 10/27/2024 9:35 AM EDT Radiation Therapy - Nursing Note (OTV) PATIENT NAME: Marimar Wang PATIENT October 27, 2024 [facility] [place]LOCATION: [facility] NOTE TYPE: RECTAL Subjective Data bladder symptoms improving with ash and AZO use, states had 1200ml output in 12 hour period. Urine clear and discomfort resolved. Mouths sores from chemo have resolved so eating better, only one meal a day but snacking thru out day Additional Data Do you want to see a Manager Lsw? No Status: Post-menopausal. Stress Scale: On a scale of 0 to 10, what number best describes how much distress you have experienced in the past week?(0 being no distress and 10 being extreme distress) 1 Social work notified: Pt denied need to see social work instructor at this time. Nursing Assessment Fatigue: increased fatigue over baseline but not altering normal activities, varies takes a nap some days Appetite: fair Nutritional Intake: Regular oral intake. Weight Gain/Loss: No Ambulatory weight history: Last 6 Encounter Wt Readings: Date: Wt: 10/20/2024 89 kg (196 lb 3.2 oz) 10/16/2024 88.6 kg (195 lb 5.2 oz) 10/13/2024 88.2 kg (194 lb 6.4 oz) 10/05/2024 88.2 kg (194 lb 8 oz) 09/30/2024 88.1 kg (194 lb 3.2 oz) 09/24/2024 87.5 kg (192 lb 14.4 oz) Nausea:None Vomiting: None Bowel Function: no diarrhea, stool today was dark colored and sticky- something new for her, no blood Erythema/Hyperpigmentation:mild, rectal area per patient Desquamation:none Rash:none Skin Care: Aquaphor Skin Sensation: Within Normal Limits Focused Assessment RECTAL: Dysuria: none and ash intact clear yellow urine SIGNED by: Kari Harrington RN Agree with above. I stressed to the patient that she should get a plan for her ash from her outside physician moraima. Continue radiation as planned. Ricci Abreu MD documented in this encounterC[facility] Telephone encounter Note * Telephone Encounter - Nikkie Walter LPN - 10/26/2024 4:40 PM EDT Patient is scheduled for port placement on 10/30/2024. I will cancel PICC line at [facility]. Left message at [facility] IR to cancel PICC appointment. Patient is aware. Nikkie Walter LPN [facility]03-31-2025 Miscellaneous Notes* Telephone Encounter - Nikkie Walter LPN - 10/26/2024 4:40 PM EDT Patient is scheduled for port placement on 10/30/2024. I will cancel PICC line at [facility]. Left message at [facility] IR to cancel PICC appointment. Patient is aware. Nikkie Walter LPN * Telephone Encounter - Leilani Nayak - 10/26/2024 1:40 PM EDT Secure chat sent to see when the first available IR port placement can be done Leilani Valdez Pss * Telephone Encounter - Nikkie Walter LPN - 10/26/2024 1:00 PM EDT PSS- please contact patient MORAIMA to schedule IR port placement at first available site patient is willing to go to. If patient can't get port placed prior to 11/02/2024's treatment, she will still need to keep appointment for PICC placement at [facility] on 10/29/2024. Nikkie Walter LPN * Telephone Encounter - Josh Bennett DO - 10/26/2024 12:58 PM EDT Filed. Thank you. Josh Bennett DO * Telephone Encounter - Josh Bennett DO - 10/26/2024 12:50 PM EDT I have no problem ordering port placement for her if she is going to continue on her Orencia. However, I agree we may not have time to have one placed for her treatment next week. If not, then she will need a PICC line. Josh Bennett DO * Telephone Encounter - Nikkie Walter LPN - 10/26/2024 12:44 PM EDT Patient contacted office asking if she could get a port placed instead of a PICC line because she gets Orencia monthly? Patient is scheduled to replace her PICC line on 10/29/2024, with treatment on 11/02/2024. I told the patient I would ask Dr. Bennett about this but we do not order her Orencia and she is onlyscheduled for 1 more treatment. Not sure we could get a port placed prior to 11/02/2024. Please advise. Nikkie Walter LPN documented in this encounterC[facility]03-31-[facility] Telephone encounter Note * Telephone Encounter - Jessica Dias RN - 10/26/2024 4:07 PM EDT You are scheduled for a medi port placement, On 10/30/2024. You are to arrive at 1200 pm and Report to [facility]: [facility]: Radiology Outpatient Desk [id number] You can expect to be here for 3-5 hours. Diet: Do not eat any solid food after midnight the day of/night before your procedure. You may drink clear liquids until 1000 am, which means black coffee, apple juice, black tea, or water only. Medications: Ok to take your cardiac, blood pressure, anti-seizure, and chronic pain medications with a sip of water, please take prior to arrival. Bring your current medication list. RADIOLOGY RECOMMENDS THESE MEDICATION RESTRICTIONS: Hold Eliquis for 4 doses Special concerns: Do you have any attached medical devices? Yes, nilsa. Insulin pumps must be removed before entering the procedure room. Do you wear Neulasta Onpro? No. If yes, the device must be removed before entering the procedure room. Do you use CPAP or BPAP? No. Labs: Lab-work needs to be drawn? No.. Boilermaker/Transportation: How will you be arriving for your procedure? Private car. You will need a responsible adult to accompany you to and from the procedure. Your restaurant delivery driver is required to stay with you until you are taken into the procedure room. Call [phone] with questions [facility]03-31-[facility] Miscellaneous Notes* Telephone Encounter - Jessica Dias RN - 10/26/2024 4:07 PM EDT You are scheduled for a medi port placement, On 10/30/2024. You are to arrive at 1200 pm and Report to [facility]: [facility]: Radiology Outpatient Desk [id number] You can expect to be here for 3-5 hours. Diet: Do not eat any solid food after midnight the day of/night before your procedure. You may drink clear liquids until 1000 am, which means black coffee, apple juice, black tea, or water only. Medications: Ok to take your cardiac, blood pressure, anti-seizure, and chronic pain medications with a sip of water, please take prior to arrival. Bring your current medication list. RADIOLOGY RECOMMENDS THESE MEDICATION RESTRICTIONS: Hold Eliquis for 4 doses Special concerns: Do you have any attached medical devices? Yes, ash. Insulin pumps must be removed before entering the procedure room. Do you wear Neulasta Onpro? No. If yes, the device must be removed before entering the procedure room. Do you use CPAP or BPAP? No. Labs: Lab-work needs to be drawn? No.. Boilermaker/Transportation: How will you be arriving for your procedure? Private car. You will need a responsible adult to accompany you to and from the procedure. Your restaurant delivery driver is required to stay with you until you are taken into the procedure room. Call [phone] with questions documented in this encounterCleveland [facility]03-31-2025 Telephone encounter Note * Telephone Encounter - Jessica Dias RN - 10/26/2024 2:00 PM EDT Unable to reach pt regarding pre procedure instructions. Call back number provided. [facility]03-31-[facility] Miscellaneous Notes* Telephone Encounter - Jessica Dias RN - 10/26/2024 2:00 PM EDT Unable to reach pt regarding pre procedure instructions. Call back number provided. documented in this encounterCleveland [facility]03-31-2025 Telephone encounter Note * Telephone Encounter - Leilani Nayak - 10/26/2024 1:40 PM EDT Secure chat sent to see when the first available IR port placement can be done Leilani Valdez Pss [facility]03-31-[facility] Telephone encounter Note* Telephone Encounter - Nikkie Walter LPN - 10/26/2024 1:00 PM EDT PSS- please contact patient MORAIMA to schedule IR port placement at first available site patient is willing to go to. If patient can't get port placed prior to 11/02/2024's treatment, she will still need to keep appointment for PICC placement at [facility] on 10/29/2024. Nikkie Walter LPN [facility]03-31-[facility] Telephone encounter Note* Telephone Encounter - Josh Bennett DO - 10/26/2024 12:58 PM EDT Filed. Thank you. Josh Bennett DO [facility]03-[facility] Telephone encounter Note* Telephone Encounter - Josh Bennett DO - 10/26/2024 12:50 PM EDT I have no problem ordering port placement for her if she is going to continue on her Orencia. However, I agree we may not have time to have one placed for her treatment next week. If not, then she will need a PICC line. Josh Bennett DO [facility]03-31-20[facility] Telephone encounter Note* Telephone Encounter - Nikkie Walter LPN - 10/26/2024 12:44 PM EDT Patient contacted office asking if she could get a port placed instead of a PICC line because she gets Orencia monthly? Patient is scheduled to replace her PICC line on 10/29/2024, with treatment on 11/02/2024. I told the patient I would ask Dr. Bennett about this but we do not order her Orencia and she is onlyscheduled for 1 more treatment. Not sure we could get a port placed prior to 11/02/2024. Please advise. Nikkie Walter LPN [facility]03-31-[facility] Telephone encounter Note* Telephone Encounter - Nikkie Walter LPN - 10/26/2024 10:39 AM EDT Patient went to [facility] ER for SOB and chest pain on 10/24/2024. Ash was placed and patient to followup with Dr. Scott. No need to have bladder scan. Dr. Bennett is aware and has reviewed the [facility] records (including new UAresults). Nikkie Walter LPN [facility]03-31-[facility]25 Miscellaneous Notes* Telephone Encounter - Nikkie Walter LPN - 10/26/2024 10:39 AM EDT Patient went to [facility] ER for SOB and chest pain on 10/24/2024. Ash was placed and patient to followup with Dr. Scott. No need to have bladder scan. Dr. Bennett is aware and has reviewed the [facility] records (including new UAresults). Nikkie Walter LPN * Telephone Encounter - Roxanne Bland RN - 10/23/2024 10:14 AM EDT Nurse was unavailable to do bladder scan today. Patient scheduled at [facility] on 10/26. Dr. Bennett, please review UA results. Thank you. Roxanne Bland RN * Telephone Encounter - Roxanne Bland RN - 10/22/2024 3:33 PM EDT Tracy Henning messaged this nurse stating she can bring the US machine down to hem/onc tomorrow and do the post void residual scan in our office. Patient will need to be placed in a room after XRT so she can lay flat on an exam table. Patient will report to nurses station after she is done with XRT so she can be roomed. Patient and XRT nurse informed. Roxanne Bland RN * Telephone Encounter - Roxanne Bland RN - 10/22/2024 10:19 AM EDT Spoke to patient. Patient tried standing over the toilet to void and it didn't make a difference. Patient stated she was able to void a decent amount this morning. Patient stated the only way she is able to void is when she is sitting in her recliner in a pull-up with her legs up. Patient stated she has pressure when she first starts to void, denies pain. Patient stated she was not able to submit a urine sample today. Patient took home the supplies so she can bring it in tomorrow. Denies fever or chills. Patient stated she does not drive and is unable to travel outside of [place]. Patient is willing togo to [facility] if this is a possibility. Called [facility]. Faxed order to #[phone]. Patient notified. She will call [facility] to schedule. Roxanne Bland RN * Telephone Encounter - Karly Carter LPN - 10/22/2024 9:47 AM EDT Urology is not in clinic until Sunday October 27, 2024. We can see if locations are available if sheis able to go to surrounding facility for appointment. * Telephone Encounter - Jordyn Fernandez - 10/22/2024 9:27 AM EDT This would be for today. - can we see if patient can get a post void residual US tomorrow in Urology? * Telephone Encounter - Roxanne Bland RN - 10/21/2024 4:[address] Spoke to Dr. Bennett, UA tomorrow. We can check UA tomorrow for blood. Also, could see if can get post void residual if someone can do the US tomorrow in urology. PSS- can we see if patient can get a post void residual US tomorrow in Urology? Thank you. Roxanne Bland RN * Telephone Encounter - Nikkie Walter LPN - 10/21/2024 4:07 PM EDT Patient c/o not being able to fully empty her bladder when she's sitting on the toilet but she is able to urinate completely in her brief without issue. She c/o urgency and frequency on and off sinceSaturday but states it's worse than ever today. Patient states her urine is clear yellow and she's drinking about 2L of fluid per day (including three cups of coffee, water and juice). Denies burning, fever or flank pain. Patient states it doesn't feel like a UTI because she's had those before and this feels different. Nikkie Walter LPN * Telephone Encounter - Jordyn Fernandez - 10/21/2024 3:55 PM EDT Patient states she is having urgency and frequency and is unable to go all the way. She is asking to speak with Nikkie today. documented in this encounterC[facility]03-31-2025 Telephone encounter Note * Telephone Encounter - Kari Harrington RN - 10/26/2024 10:29 AM EDT lona Oliveira [facility]03-31-2025 Miscellaneous Notes* Telephone Encounter - Kari Harrington RN - 10/26/2024 10:29 AM EDT lona Oliveira * Telephone Encounter - Kari Harrington RN - 10/26/2024 10:14 AM EDT Pt here for radiation treatment. She reports going to [facility] ER on 10/24/24. Shewent for shortness of breath and chest pain, but also mentioned her urinary frequency and dysuria. So a ash catheter was inserted, 100 ml was drained per records. No infection noted per records Urine is clear yellow today via ash. Pt states she still gets like a spasm that hurts and some urinecomes out around the ash Dr Ledesma notified. Pt cleared to received treatment, and no treatment for cystitis for now. Watchfor urine culture. Dr Bennett also made aware of the situation and ok to cancel bladder scan that wasscheduled for today. Pt aware to cancel this and [facility] We will re-assess tomorrow. documented in this encounterC[facility]03-31-2025 Telephone encounter Note * Telephone Encounter - Kari Harrington RN - 10/26/2024 10:14 AM EDT Pt here for radiation treatment. She reports going to [facility] ER on 10/24/24. Shewent for shortness of breath and chest pain, but also mentioned her urinary frequency and dysuria. So a ash catheter was inserted, 100 ml was drained per records. No infection noted per records Urine is clear yellow today via ash. Pt states she still gets like a spasm that hurts and some urinecomes out around the ash Dr Ledesma notified. Pt cleared to received treatment, and no treatment for cystitis for now. Watchfor urine culture. Dr Bennett also made aware of the situation and ok to cancel bladder scan that wasscheduled for today. Pt aware to cancel this and schedule [facility] We will re-assess tomorrow. [facility]03-29-2025 Radiology Diagnostic study note [facility] Imaging Services [address], [place] [id number] CTA Chest W/WO Contrast MR#: [id number] Acct: [id number] Name: MARIMAR WANG Rep #: [id number] : 1960 F 64 From: Holly Obrien MD PCP: [facility] Arriola Status: REG E R Study:CTA Chest W/WO Contrast Date of Exam: 10/24/24 Exam# [id number] Ordering Dr: Josh Disla 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-Marga PROCEDURE: CTA CHEST W/WO CONTRAST 10/24/2024 REASON FOR EXAM: ABDOMINAL PAIN TECHNIQUE: CTA imaging of the abdomen and pelvis with intravenous contrast. Multiplanar and MIP reconstructions performed. One or more dose reduction techniques were used (e.g., Automated exposure control, adjustment of the mA and/or kV according to patient size, use of iterative reconstruction technique). COMPARISON: 12/13/2023; 10/24/2024 FINDINGS: Lungs/pleura: Wedge-shaped area of pleural-based opacity in the right lung base with a trace associated pleural effusion.There is a calcified pulmonary nodule in the left upper lobe. Mild fibrotic changes are present in the upperlung barrios. Pulmonary arteries: No evidence of pulmonary embolus. Cardiovascular: The heart is normal in size.Mild coronary artery calcifications are present.Mild scattered atherosclerotic calcifications are present. Pericardium: No effusion. Mediastinum: Unremarkable. Lymph nodes: There is a stable partially calcified nodule or lymph node in the prevascular region measuring 2.7 x 1.7 cm. Additional smaller partially calcified lymph nodes are present in the left hilarregion. Bones: No acute osseous abnormality.Chronic fracture deformities present of multiple anterior bilateral ribs. Soft tissues: Unremarkable. Upper abdomen: Small hiatal hernia with a Vanessa fundoplication present. CT/CTA Chest W/WO Contrast IMPRESSION: 1. No acute pulmonary embolus identified. 2. Chronic pleural-based wedge-shaped area of consolidation in the right lung base with volume lossand an associated trace pleural effusion, possibly postinfectious/inflammatory. A chronic pulmonary infarction could also have this appearance. 3. Stable prominent partially calcified mediastinal lymph node enlargement, likely due to remote granulomatous disease. 4. Mild pulmonary fibrotic changes in the upper lung zones. Reading [facility] CC: [facility]; [facility] Bates ~ Bike Mechanic: Signed [facility]03-29-2025 Radiology Diagnostic study note [facility] Imaging Services [address] [place] [address] [id number] Abdomen/Pelvis W IV Cont ONLY MR#: [id number] Acct: [id number] Name: MARIMAR WANG Rep #: [id number] : 1960 F 64 From: Holly Obrien MD PCP: [facility] Arriola Status: REG E R Study:Abdomen/Pelvis W IV Cont ONLY Date of E xam: 10/24/24 Exam# [id number] Ordering Dr: Josh Disla PROCEDURE: ABDOMEN/PELVIS W IV CONT ONLY 10/24/2024 REASON FOR EXAM: ABDOMINAL PAIN TECHNIQUE: Abdomen and pelvis CT with intravenous contrast. Coronal and Sagittal reconstruction series were provided. One or more dose reduction techniques were used (e.g., Automated exposure control, adjustment of the mA and/or kV according to patient size, use of iterative reconstruction technique. COMPARISON: 09/02/2024; FINDINGS: Lower chest: There is a stable area of wedge-shaped consolidation with volume loss in the right lung base with an associated trace pleural effusion. Liver: Unremarkable. Biliary/gallbladder: Unremarkable. Pancreas: Unremarkable. Spleen: Unremarkable. Adrenal glands: Unremarkable. Kidneys: Unremarkable. Gastrointestinal/peritoneum: An enteric clip is present in the gastric antral lumen. There is a small hiatal hernia with postoperative changes present of a Vanessa fundoplication. A small clip is also present in the transverse portion of the colon there are no dilated loops of bowel. Mild colonic diverticulosis is present.Theappendix is unremarkable.No free air or free fluid. Vascular: Mild scattered atherosclerotic calcifications are present. Lymph nodes: No enlarged lymph nodes by CT size criteria. Pelvic organs: Unremarkable. Bladder: Indwelling Ash catheter in satisfactory position. Bones: There is a left total hip arthroplasty. Soft tissues: Unremarkable. CT/Abdomen/Pelvis W IV Cont ONLY IMPRESSION: 1. No acute abnormality of the abdomen and pelvis. 2. Indwelling Ash catheter in satisfactory position. 3. Wedge-shaped, pleural-based opacity in the right lung base with volume loss and an associated trace pleural effusion, possibly a chronic postinfectious/inflammatory process. Reading Location: [facility] CC: [facility] Ar[facility]; [facility] Bates ~ Bike Mechanic: Signed [facility]03-28-2025 Telephone encounter Note* Telephone Encounter - Roxanne Bland RN - 10/23/2024 10:14 AM EDT Nurse was unavailable to do bladder scan today. Patient scheduled at [facility] on 10/26. Dr. Bennett, please review UA results. Thank you. Roxanne Bland RN [facility]03-27-2025 Telephone encounter Note* Telephone Encounter - Roxanne Bland RN - 10/22/2024 3:33 PM EDT Tracy Henning messaged this nurse stating she can bring the US machine down to hem/onc tomorrow and do the post void residual scan in our office. Patient will need to be placed in a room after XRT so she can lay flat on an exam table. Patient will report to nurses station after she is done with XRT so she can be roomed. Patient and XRT nurse informed. Roxanne Bland RN [facility]03-27-2025 Telephone encounter Note* Telephone Encounter - Roxanne Bland RN - 10/22/2024 2:46 PM EDT Spoke to patient. Patient stated [facility] will contact her to schedule US. Patient will update this nurse once the appointment has been scheduled. Roxanne Bland RN [facility]03-27-2025 Miscellaneous Notes* Telephone Encounter - Roxanne Bland RN - 10/22/2024 2:46 PM EDT Spoke to patient. Patient stated [facility] will contact her to schedule US. Patient will update this nurse once the appointment has been scheduled. Roxanne Bland RN documented in this encounterC[facility]03-27-2025 Telephone encounter Note * Telephone Encounter - Roxanne Bland RN - 10/22/2024 10:19 AM EDT Spoke to patient. Patient tried standing over the toilet to void and it didn't make a difference. Patient stated she was able to void a decent amount this morning. Patient stated the only way she is able to void is when she is sitting in her recliner in a pull-up with her legs up. Patient stated she has pressure when she first starts to void, denies pain. Patient stated she was not able to submit a urine sample today. Patient took home the supplies so she can bring it in tomorrow. Denies fever or chills. Patient stated she does not drive and is unable to travel outside of [place]. Patient is willing togo to [facility] if this is a possibility. Called [facility]. Faxed order to #[phone]. Patient notified. She will call [facility] to schedule. Roxanne Bland RN [facility]03-27-2025 Telephone encounter Note* Telephone Encounter - Karly Carter LPN - 10/22/2024 9:47 AM EDT Urology is not in clinic until Sunday October 27, 2024. We can see if locations are available if sheis able to go to surrounding facility for appointment. [facility]03-27-[facility] Telephone encounter Note* Telephone Encounter - Jordyn Fernandez - 10/22/2024 9:27 AM EDT This would be for today. - can we see if patient can get a post void residual US tomorrow in Urology? [facility] Work Phone: [phone]) 240-596403-26-2025 Telephone encounter Note* Telephone Encounter - Roxanne Bland RN - 10/21/2024 4:[address] Spoke to Dr. Bennett, UA tomorrow. We can check UA tomorrow for blood. Also, could see if can get post void residual if someone can do the US tomorrow in urology. PSS- can we see if patient can get a post void residual US tomorrow in Urology? Thank you. Roxanne Bland RN [facility]03-26-2025 Telephone encounter Note* Telephone Encounter - Nikkie Walter LPN - 10/21/2024 4:07 PM EDT Patient c/o not being able to fully empty her bladder when she's sitting on the toilet but she is able to urinate completely in her brief without issue. She c/o urgency and frequency on and off sinceSaturday but states it's worse than ever today. Patient states her urine is clear yellow and she's drinking about 2L of fluid per day (including three cups of coffee, water and juice). Denies burning, fever or flank pain. Patient states it doesn't feel like a UTI because she's had those before and this feels different. Nikkie Walter LPN [facility]03-26-2025 Telephone encounter Note* Telephone Encounter - Jordyn Fernandez - 10/21/2024 3:55 PM EDT Patient states she is having urgency and frequency and is unable to go all the way. She is asking to speak with Nikkie today. [facility]03-26-2025 Telephone encounter Note* Telephone Encounter - Nikkie Walter LPN - 10/21/2024 1:28 PM EDT Patient is scheduled for PICC line placement 10/29/2024 @ [facility] with a 10:30 arrival time. Patient isaware of appointment date and time. Nikkie Walter LPN [facility]03-26-2025 Miscellaneous Notes* Telephone Encounter - Nikkie Walter LPN - 10/21/2024 1:28 PM EDT Patient is scheduled for PICC line placement 10/29/2024 @ [facility] with a 10:30 arrival time. Patient isaware of appointment date and time. Nikkie Walter LPN * Telephone Encounter - Nikkie Walter LPN - 10/21/2024 12:19 PM EDT Patient is aware of all appointment dates and times. I will contact her with a time for the PICC line once [facility] IR gets back to me. Please leave this note in the box until then. Nikkie Walter LPN * Telephone Encounter - Leilani Nayak - 10/21/2024 9:39 AM EDT Patient has been scheduled for the below requested appointments Leilani Lu * Telephone Encounter - Nikkie Walter LPN - 10/21/2024 9:08 AM EDT Patient's PICC line was pulled due to a clot. PSS- please schedule patient for a lab draw for a CBC on 10/26/2024 in the morning. Patient will have PICC line replaced 10/29/2024. Please schedule her for a lab/port appointment for CBC/CMP on 10/30/2024 @ 8:45. Then she will have radiation that morning. Schedule her for an OV with Dr. Bennett 10/30/2024 @ 9:20 (I know she has radiation that morning). I will contact the patient with scheduling updates. Nikkie Walter LPN documented in this encounterC[facility]03-[facility] Telephone encounter Note * Telephone Encounter - Nikkie Walter LPN - 10/21/2024 12:19 PM EDT Patient is aware of all appointment dates and times. I will contact her with a time for the PICC line once [facility] gets back to me. Please leave this note in the box until then. Nikkie Walter LPN [facility]03-26-2025 Telephone encounter Note* Telephone Encounter - Leilani Nayak - 10/21/2024 9:39 AM EDT Patient has been scheduled for the below requested appointments Leilani Lu [facility]03-26-2025 Telephone encounter Note* Telephone Encounter - Nikkie Walter LPN - 10/21/2024 9:28 AM EDT Orders faxed. See phone note. Nikkie Walter LPN [facility]03-26-2025 Miscellaneous Notes* Telephone Encounter - Nikkie Walter LPN - 10/21/2024 9:28 AM EDT Orders faxed. See phone note. Nikkie Walter LPN * Telephone Encounter - Nikkie Walter LPN - 10/20/2024 5:00 PM EDT I will fax orders to [facility] tomorrow (10/21/2024). Nikkie Walter LPN * Telephone Encounter - Josh Bennett DO - 10/20/2024 4:19 PM EDT Yes, she will need another PICC line since the second cycle is a Sat-Saturday infusion 5FU. Won't be using mitomycin, so hopefully she won't be as sick. We'll pull PICC when pump off on that Saturday. Josh Bennett DO * Telephone Encounter - Nikkie Walter LPN - 10/20/2024 11:28 AM EDT Patient's PICC line DC'd d/t clot. She started Eliquis 10/19/2024. Next scheduled lab/OV is 10/26/2024 and next treatment is scheduled 11/02/2024. Should patient have another PICC placed in right arm for treatment or a port? Nikkie Walter LPN documented in this encounterC[facility]03-26-2025 Telephone encounter Note * Telephone Encounter - Nikkie Walter LPN - 10/21/2024 9:08 AM EDT Patient's PICC line was pulled due to a clot. PSS- please schedule patient for a lab draw for a CBC on 10/26/2024 in the morning. Patient will have PICC line replaced 10/29/2024. Please schedule her for a lab/port appointment for CBC/CMP on 10/30/2024 @ 8:45. Then she will have radiation that morning. Schedule her for an OV with Dr. Bennett 10/30/2024 @ 9:20 (I know she has radiation that morning). I will contact the patient with scheduling updates. Nikkie Walter LPN [facility]03-25-2025 Telephone encounter Note* Telephone Encounter - Nikkie Walter LPN - 10/20/2024 5:00 PM EDT I will fax orders to [facility] tomorrow (10/21/2024). Nikkie Walter LPN [facility]03-25-2025 Telephone encounter Note* Telephone Encounter - Josh Bennett DO - 10/20/2024 4:19 PM EDT Yes, she will need another PICC line since the second cycle is a Sat-Saturday infusion 5FU. Won't be using mitomycin, so hopefully she won't be as sick. We'll pull PICC when pump off on that Saturday. Josh Bennett DO [facility]03-25-2025 Telephone encounter Note* Telephone Encounter - Nikkie Walter LPN - 10/20/2024 11:28 AM EDT Patient's PICC line DC'd d/t clot. She started Eliquis 10/19/2024. Next scheduled lab/OV is 10/26/2024 and next treatment is scheduled 11/02/2024. Should patient have another PICC placed in right arm for treatment or a port? 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 COURSE: definitive and concurrent chemotherapy (Mitomycin and 5-FU) AREA TREATED: Pelvis/groin CURRENT DOSE: 1980 cGy in 11 fx PLANNED DOSE: 5400 cGy in 28 fx Status: Post-menopausal SUBJECTIVE: Tolerating fatigue, no new pain, chronic nausea, no emesis, no anti- emetic medications,no increase in bladder frequency, no dysuria, no hematuria, has diarrhea 6-8 times a day, no BPR, no anorectal pain with BM, notes spontaneous anal d/c of [id number] w/o warning 3-4 times a day. EXAM: KPS: 90 General Appearance: Alert and oriented. No acute distress. IMAGING/LAB RESULTS: CBC yesterday reviewed. Treatment chart checked: Yes Patient treatment site reviewed and verified:Yes CBCTs reviewed and current:Yes Medications started: None ASSESSMENT/PLAN: Clinically stable. Toxicity within expected parameters. Continue radiation treatment as planned. Etiology of anal discharge most likely inflammation of the anorectal canal from the radiation therapy. 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 I'm having akhtar/ green discharge x2-3 a day. Additional Data Do you want to see a Manager Lsw? No Status: Post-menopausal. Stress Scale: On a scale of 0 to 10, what number best describes how much distress you have experienced in the past week?(0 being no distress and 10 being extreme distress) 2 Social work notified: Pt denied need to see social work instructor at this time. Nursing Assessment Fatigue: increased fatigue over baseline but not altering normal activities Appetite: fluctuating Nutritional Intake: Regular oral intake. Weight Gain/Loss: Not applicable Ambulatory weight history: Last 6 Encounter Wt Readings: Date: Wt: 10/20/2024 89 kg (196 lb 3.2 oz) 10/16/2024 88.6 kg (195 lb 5.2 oz) 10/13/2024 88.2 kg (194 lb 6.4 oz) 10/05/2024 88.2 kg (194 lb 8 oz) 09/30/2024 88.1 kg (194 lb 3.2 oz) 09/24/2024 87.5 kg (192 lb 14.4 oz) Nausea:Oral intake significantly decreased Vomitin-5 episodes in 24 hours Bowel Function: diarrhea 3 - 6 to 8 soft or liquid bowel movements per day Erythema/Hyperpigmentation:none Desquamation:none Rash:none Skin Care: Aquaphor Skin Sensation: mild burning Focused Assessment INJECTION MOULDING MACHINE OPERATOR - FEMALE 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 Rectal pain: Moderate. Urinary frequency (D/N): 8/2.Vaginal bleeding: No. Rectal pain only when utilizing restroom. SIGNED by: Tamia Rodriguez RN documented in this encounterCleveland Clinic [facility]03-24-2025 Telephone encounter Note * Telephone Encounter - Nikkie Walter LPN - 10/19/2024 3:14 PM EDT Patient is aware to hold Plavix while on Eliquis. Eliquis medication instructions reviewed. Patient verbalized understanding. Nikkie Walter LPN [facility]03-24-2025 Miscellaneous Notes* Telephone Encounter - Nikkie Walter LPN - 10/19/2024 3:14 PM EDT Patient is aware to hold Plavix while on Eliquis. Eliquis medication instructions reviewed. Patient verbalized understanding. Nikkie Walter LPN * Telephone Encounter - Jordyn Fernandez - 10/19/2024 3:03 PM EDT Message relayed to patient * Telephone Encounter - Nikkie Walter LPN - 10/19/2024 2:56 PM EDT Left message for patient to contact office. Eliquis is $0 for the patient and [facility] is filling it now. She is to Hold Plavix while on Eliquis. She will need to pickling solution maker this Rx today and take as directed. Nikkie Walter LPN * Telephone Encounter - Josh Bennett DO - 10/19/2024 2:47 PM EDT Rx for apixaban sent. Hold Plavix. Josh Bennett DO * Telephone Encounter - Lynn New LPN - 10/19/2024 2:30 PM EDT Vascular lab @ [facility] contacted office, pt. Positive for DVT in left Axillary Vein. Lynn New LPN documented in this encounterC[facility]03-24-2025 Telephone encounter Note * Telephone Encounter - Jordyn Fernandez - 10/19/2024 3:03 PM EDT Message relayed to patient [facility] Work Phone: [phone]) 923-263303-24-2025 Telephone encounter Note* Telephone Encounter - Nikkie Walter LPN - 10/19/2024 2:56 PM EDT Left message for patient to contact office. Eliquis is $0 for the patient and [facility] is filling it now. She is to Hold Plavix while on Eliquis. She will need to pickling solution maker this Rx today and take as directed. Nikkie Walter LPN [facility]03-24-2025 Telephone encounter Note* Telephone Encounter - Josh Bennett DO - 10/19/2024 2:47 PM EDT Rx for apixaban sent. Hold Plavix. Josh Bennett DO [facility]03-24-2025 Telephone encounter Note* Telephone Encounter - Lynn New LPN - 10/19/2024 2:30 PM EDT Vascular lab @ [facility] contacted office, pt. Positive for DVT in left Axillary Vein. Lynn New LPN [facility]03-24-2025 Telephone encounter Note* Telephone Encounter - Nikkie Walter LPN - 10/19/2024 12:38 PM EDT Patient is aware and verbalized understanding. Nikkie Walter LPN [facility]03-24-2025 Miscellaneous Notes* Telephone Encounter - Nikkie Walter LPN - 10/19/2024 12:38 PM EDT Patient is aware and verbalized understanding. Nikkie Walter LPN * Telephone Encounter - Josh Bennett DO - 10/19/2024 12:12 PM EDT Potassium low. Please start prescription supplement. Josh Bennett DO documented in this encounterCleveland Clinic [facility]03-24-2025 Telephone encounter Note * Telephone Encounter - Josh Bennett DO - 10/19/2024 12:12 PM EDT Potassium low. Please start prescription supplement. Josh Bennett DO [facility]03-24-2025 History of Present illness Narrative* Kiley Chase RN - 10/19/2024 10:30 AM EDT Flushed PICC line to obtain labs and Vidya had immediate pain in the arm that traveled up into her shoulder. Redness noted at PICC insertion site. No blood return. Collaborated with Dr. Bennett who sawher chairside. Per Dr. Bennett- pull PICC line today and placed orders for Vidya to have US today. PICC line measured 41cm. documented in this encounterCleveland Clinic [facility]03-24-2025 NoteL[facility]03-21-2025 NoteL[facility]03-21-2025 History of Present illness Narrative* Raul Carney RN - 10/16/2024 11:20 AM EDT Delvin MOLINA at chairside to assess patient's mouth sores. Per Delvin MOLINA patient is to put baking sodapaste onto blister area of bottom lip. Patient is to continue using BMX as well. Patient stated understanding. documented in this encounterC[facility]03-21-2025 Telephone encounter Note * Telephone Encounter - Roxanne Bland RN - 10/16/2024 9:02 AM EDT Patient informed of IVF appointment. Patient instructed to stop zofran/phenergan and switch to compazine. Patient stated understanding. Roxanne Bland RN [facility]03-21-2025 Miscellaneous Notes* Telephone Encounter - Roxanne Bland RN - 10/16/2024 9:02 AM EDT Patient informed of IVF appointment. Patient instructed to stop zofran/phenergan and switch to compazine. Patient stated understanding. Roxanne Bland RN * Telephone Encounter - Janie Rice - 10/16/2024 8:57 AM EDT Patient added for hydration Janie Rice * Telephone Encounter - Josh Bennett DO - 10/16/2024 8:54 AM EDT Hydration orders entered. Have her try Compazine rather than Phenergan and Zofran. Josh Bennett DO * Telephone Encounter - Kathya Rich LPN - 10/16/2024 8:33 AM EDT Please add on for hydration (2nd floor) at 10 am this morning. Will add to schedule. Tx nurse notified. Will make pt aware. Kathya Rich LPN * Telephone Encounter - Roxanne Bland RN - 10/16/2024 8:32 AM EDT Patient stated she tried olanzapine two nights in a row and it made her sick. Patient switched backto Zofran and phenergan. Patient stated parts of my mouth is better but right inside my bottom lip is a akhtar color and it's really sore. The BMX provides temporary relief. Unsure of any white patches. Patient is still on a soft diet. Patient aware we will add her on for IVF upstairs after her XRT today. This nurse will ask Dr. Bennett if there's something else she can take for nausea. Roxanne Bland, RN * Telephone Encounter - Kathya Rich LPN - 10/16/2024 8:04 AM EDT Pt calls today with c/o nausea, diarrhea and vomiting since yesterday afternoon (1:00 pm). She did sleep through the night without issue, but this morning she did have one emesis. She has been trying to keep water down. She took a Zofran this morning. Yesterday she alternated phenergan and zofran. She states she had diarrhea all day yesterday. She thinks she had 5-6 episodes of emesis yesterday. She denies fevers. Denies abd pain. Pt states has radiation tx today at 0930 and is asking if she could get IV hydration. Please advise. Kathya Rich LPN documented in this encounterCleveland Clinic [facility]03-21-2025 Telephone encounter Note * Telephone Encounter - Janie Rice - 10/16/2024 8:57 AM EDT Patient added for hydration Janie Rice [facility]03-21-2025 Telephone encounter Note* Telephone Encounter - Josh Bennett DO - 10/16/2024 8:54 AM EDT Hydration orders entered. Have her try Compazine rather than Phenergan and Zofran. Josh Bennett DO [facility]03-21-2025 Telephone encounter Note* Telephone Encounter - Kathya Rich LPN - 10/16/2024 8:33 AM EDT Please add on for hydration (2nd floor) at 10 am this morning. Will add to schedule. Tx nurse notified. Will make pt aware. Kathya Rich LPN [facility]03-21-2025 Telephone encounter Note* Telephone Encounter - Roxanne Bland RN - 10/16/2024 8:32 AM EDT Patient stated she tried olanzapine two nights in a row and it made her sick. Patient switched backto Zofran and phenergan. Patient stated parts of my mouth is better but right inside my bottom lip is a akhtar color and it's really sore. The BMX provides temporary relief. Unsure of any white patches. Patient is still on a soft diet. Patient aware we will add her on for IVF upstairs after her XRT today. This nurse will ask Dr. Bennett if there's something else she can take for nausea. Roxanne Bland RN [facility]03-21-2025 Telephone encounter Note* Telephone Encounter - Kathya Rich LPN - 10/16/2024 8:04 AM EDT Pt calls today with c/o nausea, diarrhea and vomiting since yesterday afternoon (1:00 pm). She did sleep through the night without issue, but this morning she did have one emesis. She has been trying to keep water down. She took a Zofran this morning. Yesterday she alternated phenergan and zofran. She states she had diarrhea all day yesterday. She thinks she had 5-6 episodes of emesis yesterday. She denies fevers. Denies abd pain. Pt states has radiation tx today at 0930 and is asking if she could get IV hydration. Please advise. 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 COURSE: definitive and concurrent chemotherapy (Mitomycin and 5-FU) AREA TREATED: Pelvis/groin CURRENT DOSE: 1080 cGy in 6 fx PLANNED DOSE: 5400 cGy in 28 fx Status: Post-menopausal SUBJECTIVE: She has mouth sores from chemotherapy and just started on BMX solution. EXAM: KPS: 90 General Appearance: Alert and oriented. No acute distress. IMAGING/LAB RESULTS: CBC yesterday reviewed. Treatment chart checked: Yes Patient treatment site reviewed and verified:Yes CBCTs reviewed and current:Yes Medications started: None ASSESSMENT/PLAN: Clinically stable. Toxicity within expected parameters. Continue radiation treatment as planned. Sidney Joya MD * Kari Harrington RN - 10/13/2024 9:35 AM EDT Radiation Therapy - Nursing Note (OTV) PATIENT NAME: Marimar Wang PATIENT October 13, 2024 [facility] [place]/LOCATION: [place] NURSING NOTE TYPE: RECTAL Subjective Data no radiation related side effects, has had nausea/vomiting, mouth sorea, she got IV fluids last week and on scheduled for today Additional Data Do you want to see a Manager Lsw? No Status: Post-menopausal. Stress Scale: On a scale of 0 to 10, what number best describes how much distress you have experienced in the past week?(0 being no distress and 10 being extreme distress) 0 Social work notified: Pt denied need to see social work instructor at this time. Nursing Assessment Fatigue: increased fatigue over baseline but not altering normal activities Appetite: only eating soft foods, has mouth sores, bad taste Nutritional Intake: Regular oral intake. and Oral intake with protein supplements, 1 cans of 1 daily. Weight Gain/Loss: No Ambulatory weight history: Last 6 Encounter Wt Readings: Date: Wt: 10/05/2024 88.2 kg (194 lb 8 oz) 09/30/2024 88.1 kg (194 lb 3.2 oz) 09/24/2024 87.5 kg (192 lb 14.4 oz) 09/17/2024 87.1 kg (192 lb) 09/15/2024 87.8 kg (193 lb 8 oz) 09/02/2024 89 kg (196 lb 3.4 oz) Nausea:Oral intake significantly decreased Vomiting: None in last 24 hours, taking antiemetics Bowel Function: constipation, last BM this am, instructed on miralax Erythema/Hyperpigmentation:none Desquamation:none Rash:none Skin Care: Aquaphor Skin Sensation: Within Normal Limits Focused Assessment RECTAL: Dysuria: none, Rectal pain aquaphor and donut to sit help is helping prevent pain, and Rectal bleeding spotting requiring < 2 pads per day SIGNED by: Kari Harrington RN documented in this encounterCleveland Clinic [facility]03-18-2025 NoteLake[facility]03-17-2025 Telephone encounter Note* Telephone Encounter - Roxanne Bland RN - 10/12/2024 11:00 AM EDT Care Coordination Triage Note [facility] Situation: Patient reports Mouth pain/Mucositis , nausea Background: Anal Cancer- on 5FU/Mitomycin. Developed mouth sores on Saturday. Assessment: Describe the mouth pain or sores: gums, blister on my lip my tongue, upper part of my throat is sore Do you have sores in just your mouth or your throat as well? Yes it hurts to swallow Are the sores interfering with eating, drinking or sleeping? Interfering with eating/drinking/sleeping. Drinking water, 1L water, Gatorade, juice. Protein shakes. Do you have a white coating on your tongue? Patient feels her tongue is white. No white patches noted on nurse exam. Do you have a temperature over 100.4? no What measures have you taken to alleviate your symptoms? Baking soda/ salt rinses. Has this happened with prior cycles of treatment? N/a. Patient has only had 1 cycle. Denies eating citrus/tomato based foods. Dizziness: no Nausea follow-up: I was sick again all weekend. Patient stated she started with dry heaves as soon as she sits up. Patient takes Zofran before she sits up and this has prevented her from vomiting. Patient stated she had multiple episodes of emesis over the weekend. Taking zofran every 8 hours. Patient feels the Zofran helps to a certain point. Patient has also taken phenergan 4 hours after taking zofran which she feels this has helped. Recommendations: Per RNCC, patient directed to: Manage at home. Instructions provided. BMX for mouth sores. Discussed swishing and spitting the solution every hour if needed, she can swish and spit every 4 hours. IVF tomorrow? Will discuss with [facility]. Roxanne Bland RN October 12, 2024 11:00 AM [facility]03-17-2025 Miscellaneous Notes* Telephone Encounter - Roxanne Bland RN - 10/12/2024 11:00 AM EDT Care Coordination Triage Note [facility] Situation: Patient reports Mouth pain/Mucositis , nausea Background: Anal Cancer- on 5FU/Mitomycin. Developed mouth sores on Saturday. Assessment: Describe the mouth pain or sores: gums, blister on my lip my tongue, upper part of my throat is sore Do you have sores in just your mouth or your throat as well? Yes it hurts to swallow Are the sores interfering with eating, drinking or sleeping? Interfering with eating/drinking/sleeping. Drinking water, 1L water, Gatorade, juice. Protein shakes. Do you have a white coating on your tongue? Patient feels her tongue is white. No white patches noted on nurse exam. Do you have a temperature over 100.4? no What measures have you taken to alleviate your symptoms? Baking soda/ salt rinses. Has this happened with prior cycles of treatment? N/a. Patient has only had 1 cycle. Denies eating citrus/tomato based foods. Dizziness: no Nausea follow-up: I was sick again all weekend. Patient stated she started with dry heaves as soon as she sits up. Patient takes Zofran before she sits up and this has prevented her from vomiting. Patient stated she had multiple episodes of emesis over the weekend. Taking zofran every 8 hours. Patient feels the Zofran helps to a certain point. Patient has also taken phenergan 4 hours after taking zofran which she feels this has helped. Recommendations: Per RNCC, patient directed to: Manage at home. Instructions provided. BMX for mouth sores. Discussed swishing and spitting the solution every hour if needed, she can swish and spit every 4 hours. IVF tomorrow? Will discuss with [employer]. Roxanne Bland RN October 12, 2024 11:00 AM * Telephone Encounter - Lawanda Rutherford RN - 10/12/2024 9:45 AM EDT Pt here today for CBC. C/o mouth sores that started on Saturday. She has tried the baking soda rinse and salt water with no relief. Pt able to eat soft foods but that is all. Mouth sores are throughoutmouth, lips, tongue, roof of mouth. No white patches noted. Please advise. documented in this encounterCleveland [facility]03-17-2025 Telephone encounter Note * Telephone Encounter - Lawanda Rutherford RN - 10/12/2024 9:45 AM EDT Pt here today for CBC. C/o mouth sores that started on Saturday. She has tried the baking soda rinse and salt water with no relief. Pt able to eat soft foods but that is all. Mouth sores are throughoutmouth, lips, tongue, roof of mouth. No white patches noted. Please advise. [facility]03-13-2025 Telephone encounter Note* Telephone Encounter - Roxanne Bland RN - 10/08/2024 12:03 PM EDT [facility] Care Coordination FOLLOW-UP NOTE Patient identified by name and date of . YES Spoke to patient Summary: (Reason for follow-up) Patient stated she picked up the Zofran and started this morning. Patient stated she woke up with nausea and vomiting so she took Zofran and it alleviated the N/V. Patient instructed to remain on Zofran around the clock every 8 hours for the next 1-2 days then can switch PRN. Patient encouraged to hydrate well today and call our office if the Zofran stops alleviating the nausea/vomiting. Patient stated understanding. Care Coordination Plan: Will follow up next week. Roxanne Bland RN October 08, 2024 [facility]03-13-2025 Miscellaneous Notes* Telephone Encounter - Roxanne Bland RN - 10/08/2024 12:03 PM EDT [facility] Care Coordination FOLLOW-UP NOTE Patient identified by name and date of . YES Spoke to patient Summary: (Reason for follow-up) Patient stated she picked up the Zofran and started this morning. Patient stated she woke up with nausea and vomiting so she took Zofran and it alleviated the N/V. Patient instructed to remain on Zofran around the clock every 8 hours for the next 1-2 days then can switch PRN. Patient encouraged to hydrate well today and call our office if the Zofran stops alleviating the nausea/vomiting. Patient stated understanding. Care Coordination Plan: Will follow up next week. Roxanne Bland RN October 08, 2024 documented in this encounterCleveland Clinic [facility]03-13-2025 NoteLake[facility]03-13-2025 History of Present illness Narrative* Lawanda Rutherford RN - 10/08/2024 10:14 AM EDT Pt's pump beeping during/after radiation. New pump connected. Rate/volume checked with second nurse-LÓPEZ MASSEY documented in this encounterCleveland Clinic [facility]03-12-2025 NoteL[facility]03-12-2025 History of Present illness Narrative* Raul Carney RN - 10/07/2024 11:12 AM EDT Patient here for IV hydration d/t vomiting. She states she had 5 episodes of vomiting since yesterday. Patient has completed her hydration and CADD pump restarted. Patient states she is too tired to have her radiation today. Cesilia RN notified that patient does not want to go through with radiation today. Patient educated on the risks of not getting radiation today and patient would still like to go home. documented in this encounterC[facility] Telephone encounter Note * Telephone Encounter - Roxanne Bland RN - 10/06/2024 11:33 AM EDT CYCLE 1/DAY 1 POST TREATMENT CALL Today's date: October 06, 2024 Treatment Regimen: 5FU/Mitomycin C1D1 Date: 10/05/24 Called patient to follow-up on symptom management. Spoke with patient SYMPTOM ASSESSMENT Neuro: None CV/Resp: Shortness of breath with exertion I've had that about the same. GI/: Nausea: yes. Has phenergan at home, took at 8:00 am, does not feel this is providing enough relief.Patient stated the orally disintegrating Zofran tablets make her gag. Pended regular Zofran tablets. Patient advised to start once available for pickup. Take around the clock every 8 hours until the nausea is under good control, then can switch to PRN. Vomiting: dry heaves Diarrhea: no Appetite: good Denies heartburn/indigestion, takes Protonix daily. Integument: None Activity: Patient reported no changes in energy level, energy level fair Pain: No=0 (pain 0 on a scale of 0-10). Fever: No Chills: No. I'm cold all the time not unusual for patient. Any new referrals needed? No Reinforced CURRENT treatment education based on current and anticipated symptoms. Discussed port/line care and patient verbalizes understanding: Yes Patient instructed to contact office or after hours Hematology/Oncology fellow for: temperature >= 100.4; questions or concerns. Patient verbalized understanding of when to seek medical attention and after hours number protocol. Roxanne Bland RN [facility]03-11-2025 Miscellaneous Notes* Telephone Encounter - Roxanne Bland RN - 10/06/2024 11:33 AM EDT CYCLE 1/DAY 1 POST TREATMENT CALL Today's date: October 06, 2024 Treatment Regimen: 5FU/Mitomycin C1D1 Date: 10/05/24 Called patient to follow-up on symptom management. Spoke with patient SYMPTOM ASSESSMENT Neuro: None CV/Resp: Shortness of breath with exertion I've had that about the same. GI/: Nausea: yes. Has phenergan at home, took at 8:00 am, does not feel this is providing enough relief.Patient stated the orally disintegrating Zofran tablets make her gag. Pended regular Zofran tablets. Patient advised to start once available for pickup. Take around the clock every 8 hours until the nausea is under good control, then can switch to PRN. Vomiting: dry heaves Diarrhea: no Appetite: good Denies heartburn/indigestion, takes Protonix daily. Integument: None Activity: Patient reported no changes in energy level, energy level fair Pain: No=0 (pain 0 on a scale of 0-10). Fever: No Chills: No. I'm cold all the time not unusual for patient. Any new referrals needed? No Reinforced CURRENT treatment education based on current and anticipated symptoms. Discussed port/line care and patient verbalizes understanding: Yes Patient instructed to contact office or after hours Hematology/Oncology fellow for: temperature >= 100.4; questions or concerns. Patient verbalized understanding of when to seek medical attention and after hours number protocol. 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 Additional Data Do you want to see a Manager Lsw? No Status: Post-menopausal. Stress Scale: On a scale of 0 to 10, what number best describes how much distress you have experienced in the past week?(0 being no distress and 10 being extreme distress) 5 Social work notified: Pt denied need to see social work instructor at this time. Nursing Assessment Fatigue: moderate; causing difficulty performing some activities Appetite: good Nutritional Intake: Regular oral intake. 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 Rectal pain: No. Urinary frequency (D/N): 0/0. Vaginal bleeding: No. 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 It's p16 positive. COURSE: definitive and concurrent chemotherapy (Mitomycin and 5-FU) AREA TREATED: Pelvis/groin CURRENT DOSE: 360 cGy in 2 fx PLANNED DOSE: 5400 cGy in 28 fx Status: Post-menopausal SUBJECTIVE: She has nausea and take Phenergan. EXAM: KPS: 90 General Appearance: Alert and oriented. No acute distress. Radiation dermatitis: No IMAGING/LAB RESULTS: CBC yesterday reviewed. Treatment chart checked: Yes Patient treatment site reviewed and verified:Yes CBCTs reviewed and current:Yes Medications started: None ASSESSMENT/PLAN: Clinically stable. Toxicity within expected parameters. Continue radiation treatment as planned. Sidney Joya MD documented in this encounterC[facility]03-11-2025 NoteL[facility]03-11-2025 NoteL[facility]03-11-2025 History of Present illness Narrative* Raul Hendrix LISW - 10/06/2024 9:26 AM EDT Spoke with pt regarding a rollator prescription to send to [facility]. SW printed [facility]'s quick script form and will have physician review and sign. Will fax to [facility] once completed and send to internal scanning. HARITHA Massey documented in this encounterCleveland Clinic [facility]03-05-2025 Note* ACP (Advance Care Planning) - Raul Hendrix LISW - 09/30/2024 11:02 AM EST Goals of Care Date of Discussion: 09/29/2024 DIscussion Participants: Marimar Wang (pt) Clinical: HARITHA Massey Patient/Family/Decision Makers: Marzena Borjas (daughter) P: [phone] [address] [place] [address] In this encounter: Explained the [place] Order of Decision Makers and patient expressed understanding. Assisted patient in completing Healthcare Power of Torque Tester. Patient named Marzena Borjas (daughter) as agent. Assisted patient in completing Living Will. Patient shared that they would like Marzena Borjas (daughter) to make health care decisions for them if they are not able to themselves. Gave copy of completed document to patient services to be scanned into patient's electronic medicalrecord. Provided patient with original document along with requested number of copies. Copy of forms given to patient and a copy given to pt's daughter this date. HARITHA Massey [facility]03-05-2025 Miscellaneous Notes* ACP (Advance Care Planning) - Raul Hendrix LISW - 09/30/2024 11:02 AM EST Goals of Care Date of Discussion: 09/29/2024 DIscussion Participants: Marimar Wang (pt) Clinical: HARITHA Massey Patient/Family/Decision Makers: Marzena Borjas (daughter) P: [phone] [address] [place] [address] In this encounter: Explained the [place] Order of Decision Makers and patient expressed understanding. Assisted patient in completing Healthcare Power of Torque Tester. Patient named Marzena Borjas (daughter) as agent. Assisted patient in completing Living Will. Patient shared that they would like Marzena Borjas (daughter) to make health care decisions for them if they are not able to themselves. Gave copy of completed document to patient services to be scanned into patient's electronic medicalrecord. Provided patient with original document along with requested number of copies. Copy of forms given to patient and a copy given to pt's daughter this date. HARITHA Massey documented in this encounterCleveland Clinic [facility]03-05-2025 History of Present illness Narrative* Azul Nair Mammo Tech - 09/30/2024 10:30 AM EST Radiology Service Progress Note PATIENT NAME: Marimar Wang DATE OF SERVICE: September 30, 2024 TIME: 11:27 AM PATIENT IDENTITY VERIFICATION COMPLETED USING TWO (2) IDENTIFIERS: Name and Date of confirmedby patient verbally. FALL SCREENING: Has the patient had 2 falls in the last year or 1 fall with injury or currently using an Ambulatory Assistive Device (Walker, Cane, Wheelchair, Crutches, etc.)? No PATIENT GENDER DATA: Assigned female at . status: : No status:NO. PATIENT RELEVANT IMPLANT DATA REVIEWED: Not Applicable PATIENT PRESENTS WITH AN IMPLANTABLE OR ATTACHED PEDIATRIC SURGEON: No RADIOLOGY DEPARTMENT: Mammography PERIPHERAL IV DATA: Not applicable SIGNED BY: Leslie Wrighto Gabrielle September 30, 2024 11:27 AM documented in this encounterCleveland Clinic [facility]03-05-2025 NoteL[facility]03-05-2025 NoteL[facility]03-05-2025 History of Present illness Narrative* Juan José Cheema MD - 09/30/2024 8:56 AM EST Head Cleaning Porter provided by Olga Jerry LPN. 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 Plans for chemo and radiation tx. Leaking urine that began today and his new for her.. Postmenopausal: Yes HRT use: No. Still get period: No Menopause symptoms: None control frequency: Never HPV vaccine: No; Last pap smear: 2017, normal History of abnormal pap: No, all prior PAP smears have been normal Bothersome pelvic pain: Yes Last mammogram: 2018 normal History of abnormal mammogram: No OB History Gravida2 Para0 Term0 Preterm0 AB0 Living2 SAB0 IAB0 Ectopic0 Multiple0 Live Births0 Roll Cleaner History LMP: 01/22/2010, Postmenopausal Age at Menarche: 9 Age at First : Age at Menopause: Roll Cleaner History Comments: Sexual Activity: Not Currently; No partner data on record; Postmenopausal Contraception: No contraception data on record PAST MEDICAL HISTORY Diagnosis Date Asthma Homer lesion, acute 01/30/2019 Carotid artery stenosis bilateral- US in epic COPD (chronic obstructive pulmonary disease) (HCC) Crohn disease (HCC) Depression Diverticulosis Fibromyalgia GERD (gastroesophageal reflux disease) GI bleed 02/2019 Hiatal hernia Repaired 05/07/19 Hyperlipidemia Hypertension Insomnia Iron deficiency anemia Iron deficiency anemia Osteoarthritis Osteoporosis Piriformis syndrome PVC's (premature ventricular contractions) Rheumatoid arthritis (HCC) Sjogren's disease (HCC) Vitamin D deficiency PAST SURGICAL HISTORY Procedure Laterality Date ARTHRP KNE CONDYLE&PLATU MEDIAL&LAT COMPARTMENTS 2009 Total left knee surgery COLONOSCOPY FLX DX W/COLLJ SPEC WHEN PFRMD 04/11/2015 diverticulosis, no specimens collected Dr. Tapia COLONOSCOPY FLX DX W/COLLJ SPEC WHEN PFRMD 09/23/[address] Tapia EGD 01/30/2019 large hiatal hernia with Homer erosions, likely source of GI bleed Dr. Rudolph EGD 09/15/2007 patulous GE junction, nonobstructive Schatzki's ring, bile reflux of stomach, hiatal hernia, neg H pylori EGD EUS N/A 07/07/2020 3 cm sliding hiatal hernia, no obst Schatzki's ring, mild duodenitis, mild/moderate gastritis EGD TRANSORAL BIOPSY SINGLE/MULTIPLE 02/17/2020 retained contents in stomach, bxs negative Dr. Pat ESOPHAGOGASTRODUODENOSCOPY TRANSORAL DIAGNOSTIC 05/07/2016 sliding hiatal hernia, no source of GI bleed Dr. Laureano ESOPHAGOGASTRODUODENOSCOPY TRANSORAL DIAGNOSTIC 09/23/2017 normal, bxs negative Dr. Tapia GI TRC IMG INTRALUMINAL ESOPHAGUS-ILEUM W/I&R 10/04/2017 Normal smallbowel Capsule endosocpy HIATAL HERNIA REPAIR HX 04/2019 LAPS RPR PARAESPHGL HRNA INCL FUNDPLSTY W/MESH 05/07/2019 Dr. Pat MRI BRAIN W/O CONTRAST 07/20/2011 PARTIAL HIP REPLACEMENT Left 2020 PAST SURGICAL HISTORY OF 1983, 1986 2 C Sections PAST SURGICAL HISTORY OF 1982 Left shoulder, has screw in shoulder PAST SURGICAL HISTORY OF 09/02/2024 biopsy perianal mass TOTAL KNEE REPLACEMENT Right 2021 FAMILY HISTORY Problem Relation Age of Onset other (Anemia) Mother Anemia other (other) Mother other (pulmonary hypertention) Mother other (ESRD) Mother Hypertension Mother Stroke Mother Cataract Mother Asthma Mother Kidney failure Mother Heart Father Glaucoma Father Ischemic Heart Disease Father age 42 from [place] Hypertension Sister other (Other) Brother 18 MVA Angioedema Maternal Grandmother other (CHF) Maternal Grandfather Hypertension Paternal Grandmother Stroke Paternal Grandfather Depression Daughter other (PTSD) Daughter other (Anxiety) Daughter other (svt) Daughter Diabetes Daughter SOCIAL HISTORY Social History Tobacco Use Smoking status: Former Current packs/day: 0.00 Average packs/day: 1 pack/day for 31.0 years (31.0 ttl pk-yrs) Types: Cigarettes Start date: 01/02/1984 Quit date: 01/01/2015 Years since quittin.7 Smokeless tobacco: Never Tobacco comments: ETS: Father in childhood home. Active smoker in current home. Vaping Use Vaping status: Never Used Substance Use Topics Alcohol use: No Drug use: Never REVIEW OF SYSTEMS Abdomen: No abdominal pain, nausea, vomiting, diarrhea, or constipation. No bloating, early satiety, indigestion, or increased flatulence. Bladder: No dysuria, gross hematuria, urinary frequency, urinary urgency, or incontinence Breast: No breast lumps, nipple d/c, overlying skin changes, redness or skin retraction Allergies and current medication updated:Yes SENSITIVE EXAM: The sensitive examination was discussed with the Patient or Patient's Authorized Fumigator And Sterilizer. As applicable, any other physician, advance practice provider, medical student, or other health professional student that will be observing or involved in the sensitive examination for educational or training purposes was discussed with the Patient or Authorized Fumigator And Sterilizer. The Patient or Authorized Fumigator And Sterilizer has agreed to proceed with the sensitive examination. (Sensitive examination includes inspection and/or palpation of the breasts, pelvis, prostate and anorectal regions). EXAM: LMP 01/22/2010 GENERAL: pleasant, female in no apparent distress HEENT: Normocephalic, atraumatic, mucus membranes moist, and no lesions NECK: Supple, full range of motion, no adenopathy, and thyroid normal DERMATOLOGY: Normal, without lesions, non-icteric, and non-hirsute BREAST: soft, non-tender, symmetric, no dominant mass, normal nipple-areolar complex, no lymphadenopathy, and no nipple discharge CHEST: Normal inspiratory effort ABDOMEN: soft, non-tender, and no masses PELVIC: external genitalia normal, normal Bartholin's glands, urethra, [place]'s glands, no vulvar lesions, no cervical lesions, good vaginal support, physiologic discharge present,, thickened, firm and tender posterior vaginal wall and perineal body BIMANUAL: subobtimal exam due to discomfort and obesity RECTOVAGINAL: deferred. NEURO: alert and oriented x3 and alert and oriented x3,exam grossly non-focal EXTREMITIES: normal ASSESSMENT/PLAN: 1) Health maintenance: Pap done with reflex HPV Mammogram ordered 2) Follow up one year or sooner as needed 30 squamous cell cancer of the anus Juan José Cheema MD documented in this encounterCleveland [facility]03-04-2025 Telephone encounter Note * Telephone Encounter - Sarah Pearson PA-C - 09/29/2024 11:58 AM EST Saw pt virtually this AM Sarah Pearson PA-C [facility]03-04-2025 Miscellaneous Notes* Telephone Encounter - Sarah Pearson PA-C - 09/29/2024 11:58 AM EST Saw pt virtually this AM Sarah Pearson PA-C documented in this encounterCleveland Clinic [facility]ucl[facility]03-04-2025 NoteHNO ID: [id number] Author: SARAH PEARSON PA-C Service: ? Author Type: Physician Collar Stay Fuser Tender Type: Progress Notes Filed: 09/29/2024 11:42 Note Text: [facility] [place] [facility] Sarah Pearson PA-C [facility]- [address] [place] [address] [facility]- [address] [place] [address] [facility]- [address] [place] [address] ; RHEUMATOLOGY PROGRESS NOTE VIRTUAL VISIT PROGRESS NOTE This is a virtual visit using HIPAA compliant video platform. It required patient-provider interaction for the medical decision making as documented below using [employer]. I have communicated my name and active licensure. The patient?s identity and physical location were verified at the time of this visit. Either the patient or their legal sales representative publications has been informed of the risks and benefits of -- and alternatives to -- treatment through a remote evaluation and consents to proceed with the evaluation remotely. HPI: Marimar Wang is a 64 year old female seen for RA, osteoporosis, crohn's, psoriasis. Arava 20 mg daily Orencia IV every 4 weeks- on hold Reclast IV yearly, Vit D 50,000 units every other week Starting radiation simulation today. Oncology wanted to postpone Orencia 6 weeks past last chemo/radiation Last Orencia 06/21 Chemo/XRT scheduled 10/05 Getting PICC line soon Joint doing well at present. No joint pain, swelling. Crohn's has been active. Still on budesonide. On clindamycin at present for infected IANDD, started 09/25/24 Rash- PCP diagnosed with psoriasis on her fingers GI recently diagnosed her with crohn's disease. And pancreatic insuff. Started Creon, budesonide. Uses Tylenol- does not help Right knee replaced 01/23/2023. Doing well. Dr. Odalis Cooney [facility] No longer seeing pain mgmt- not on Lyrica Was diagnosed with TIA. Carotid artery stenosis. On Plavix Jul 2021 - fell on ice fracture NOF. Also had stress fracture which could have been old. Had hemiarthroplasty. COVID 04/06/2021, whole month, COVID pneumonia, pleurisy, bronchitis Following closely with pulmonology, recent PFTs are stable HISTORY REVIEWED (electronic chart updated): PAST MEDICAL HISTORY Diagnosis Date Asthma Homer lesion, acute 01/30/2019 Carotid artery stenosis bilateral- US in [facility] COPD (chronic obstructive pulmonary disease) (HCC) Crohn disease (HCC) Depression Diverticulosis Fibromyalgia GERD (gastroesophageal reflux disease) GI bleed 02/2019 Hiatal hernia Repaired 05/07/19 Hyperlipidemia Hypertension Insomnia Iron deficiency anemia Iron deficiency anemia Osteoarthritis Osteoporosis Piriformis syndrome PVC's (premature ventricular contractions) Rheumatoid arthritis (HCC) Sjogren's disease (HCC) Vitamin D deficiency PAST SURGICAL HISTORY Procedure Laterality Date ARTHRP KNE CONDYLEANDPLATU MEDIALANDLAT COMPARTMENTS 2010 Total left knee surgery COLONOSCOPY FLX DX W/COLLJ SPEC WHEN PFRMD 04/11/2015 diverticulosis, no specimens collected Dr. Tapia COLONOSCOPY FLX DX W/COLLJ SPEC WHEN PFRMD 09/23/[address] Tapia EGD 01/30/2019 large hiatal hernia with Homer erosions, likely source of GI bleed Dr. Rudolph EGD 09/15/2007 patulous GE junction, nonobstructive Schatzki's ring, bile reflux of stomach, hiatal hernia, neg H pylori EGD EUS N/A 07/07/2020 3 cm sliding hiatal hernia, no obst Schatzki's ring, mild duodenitis, mild/moderate gastritis EGD TRANSORAL BIOPSY SINGLE/MULTIPLE 02/17/2020 retained contents in stomach, bxs negative Dr. Pat ESOPHAGOGASTRODUODENOSCOPY TRANSORAL DIAGNOSTIC 05/07/2016 sliding hiatal hernia, no source of GI bleed Dr. Laureano ESOPHAGOGASTRODUODENOSCOPY TRANSORAL DIAGNOSTIC 09/23/2017 normal, bxs negative Dr. Tapia GI TRC IMG INTRALUMINAL ESOPHAGUS-ILEUM W/IANDR 10/04/2017 Normal smallbowel Capsule endosocpy HIATAL HERNIA REPAIR HX 04/2019 LAPS RPR PARAESPHGL HRNA INCL FUNDPLSTY W/MESH 05/07/2019 Dr. Pat MRI BRAIN W/O CONTRAST 07/20/2011 PARTIAL HIP REPLACEMENT Left 2020 PAST SURGICAL HISTORY OF 1983, 1986 2 C Sections PAST SURGICAL HISTORY OF 1982 Left shoulder, has screw in shoulder PAST SURGICAL HISTORY OF 09/02/2024 biopsy perianal mass TOTAL KNEE REPLACEMENT Right 2021 FAMILY HISTORY Problem Relation Age of Onset other (Anemia) Mother Anemia other (other) Mother other (pulmonary hypertention) Mother other (ESRD) Mother Hypertension Mother Stroke Mother Cataract Mother Asthma Mother Kidney failure Mother Heart Father Glaucoma Father Ischemic Heart Disease Father age 42 from [place] Hypertension Sister other (Other) Brother 18 MVA Angioedema Maternal Grandmother other (CHF) Maternal Grandfather Hypertension Paternal Grandmother Stroke Paternal Grandfather Depression Daughter other (PTSD) Daughter other (Anxiety) Daughter other ( (more content not included)...[facility]03-04-2025 History of Present illness Narrative* Sarah Pearson PA-C - 09/29/2024 9:57 AM EST Images from the original note were not included. [facility] Sarah Pearson PA-C [facility] [address] [place] [address] [facility]- [address] [place] [address] [facility]- [address] [place] [address] ; RHEUMATOLOGY PROGRESS NOTE VIRTUAL VISIT PROGRESS NOTE This is a virtual visit using HIPAA compliant video platform. It required patient-provider interaction for the medical decision making as documented below using [employer]. I have communicated my name and active licensure. The patient s identity and physical location wereverified at the time of this visit. Either the patient or their legal sales representative publications has been informed of the risks and benefits of -- and alternatives to -- treatment through a remote evaluation andconsents to proceed with the evaluation remotely. HPI: Marimar Wang is a 64 year old female seen for RA, osteoporosis, crohn's, psoriasis. Arava 20 mg daily Orencia IV every 4 weeks- on hold Reclast IV yearly, Vit D 50,000 units every other week Starting radiation simulation today. Oncology wanted to postpone Orencia 6 weeks past last chemo/radiation Last Orencia 06/21 Chemo/XRT scheduled 10/05 Getting PICC line soon Joint doing well at present. No joint pain, swelling. Crohn's has been active. Still on budesonide. On clindamycin at present for infected I&D, started 09/25/24 Rash- PCP diagnosed with psoriasis on her fingers GI recently diagnosed her with crohn's disease. And pancreatic insuff. Started Creon, budesonide. Uses Tylenol- does not help Right knee replaced 01/23/2023. Doing well. Dr. Odalis Cooney [facility] No longer seeing pain mgmt- not on Lyrica Was diagnosed with TIA. Carotid artery stenosis. On Plavix Jul 2021 - fell on ice fracture NOF. Also had stress fracture which could have been old. Had hemiarthroplasty. COVID 04/06/2021, whole month, COVID pneumonia, pleurisy, bronchitis Following closely with pulmonology, recent PFTs are stable HISTORY REVIEWED (electronic chart updated): PAST MEDICAL HISTORY Diagnosis Date Asthma Homer lesion, acute 01/30/2019 Carotid artery stenosis bilateral- US [place] [facility] COPD (chronic obstructive pulmonary disease) (HCC) Crohn disease (HCC) Depression Diverticulosis Fibromyalgia GERD (gastroesophageal reflux disease) GI bleed 02/2019 Hiatal hernia Repaired 05/07/19 Hyperlipidemia Hypertension Insomnia Iron deficiency anemia Iron deficiency anemia Osteoarthritis Osteoporosis Piriformis syndrome PVC's (premature ventricular contractions) Rheumatoid arthritis (HCC) Sjogren's disease (HCC) Vitamin D deficiency PAST SURGICAL HISTORY Procedure Laterality Date ARTHRP KNE CONDYLE&PLATU MEDIAL&LAT COMPARTMENTS 2009 Total left knee surgery COLONOSCOPY FLX DX W/COLLJ SPEC WHEN PFRMD 04/11/2015 diverticulosis, no specimens collected Dr. Tapia COLONOSCOPY FLX DX W/COLLJ SPEC WHEN PFRMD 09/23/[address] Tapia EGD 01/30/2019 large hiatal hernia with Homer erosions, likely source of GI bleed Dr. Rudolph EGD 09/15/2007 patulous GE junction, nonobstructive Schatzki's ring, bile reflux of stomach, hiatal hernia, neg H pylori EGD EUS N/A 07/07/2020 3 cm sliding hiatal hernia, no obst Schatzki's ring, mild duodenitis, mild/moderate gastritis EGD TRANSORAL BIOPSY SINGLE/MULTIPLE 02/17/2020 retained contents in stomach, bxs negative Dr. Pat ESOPHAGOGASTRODUODENOSCOPY TRANSORAL DIAGNOSTIC 05/07/2016 sliding hiatal hernia, no source of GI bleed Dr. Laureano ESOPHAGOGASTRODUODENOSCOPY TRANSORAL DIAGNOSTIC 09/23/2017 normal, bxs negative Dr. Tapia GI TRC IMG INTRALUMINAL ESOPHAGUS-ILEUM W/I&R 10/04/2017 Normal smallbowel Capsule endosocpy HIATAL HERNIA REPAIR HX 04/2019 LAPS RPR PARAESPHGL HRNA INCL FUNDPLSTY W/MESH 05/07/2019 Dr. Pat MRI BRAIN W/O CONTRAST 07/20/2011 PARTIAL HIP REPLACEMENT Left 2020 PAST SURGICAL HISTORY OF 1983, 1986 2 C Sections PAST SURGICAL HISTORY OF 1982 Left shoulder, has screw in shoulder PAST SURGICAL HISTORY OF 09/02/2024 biopsy perianal mass TOTAL KNEE REPLACEMENT Right 2021 FAMILY HISTORY Problem Relation Age of Onset other (Anemia) Mother Anemia other (other) Mother other (pulmonary hypertention) Mother other (ESRD) Mother Hypertension Mother Stroke Mother Cataract Mother Asthma Mother Kidney failure Mother Heart Father Glaucoma Father Ischemic Heart Disease Father age 42 from [place] Hypertension Sister other (Other) Brother 18 MVA Angioedema Maternal Grandmother other (CHF) Maternal Grandfather Hypertension Paternal Grandmother Stroke Paternal Grandfather Depression Daughter other (PTSD) Daughter other (Anxiety) Daughter other (svt) Daughter Diabetes Daughter Social History Tobacco Use Smoking status: Former Current packs/day: 0.00 Average packs/day: 1 pack/day for 31.0 years (31.0 ttl pk-yrs) Types: Cigarettes Start date: 01/02/1984 Quit date: 01/01/2015 Years since quittin.7 Smokeless tobacco: Never Tobacco comments: ETS: Father in childhood home. Active smoker in current home. Vaping Use Vaping status: Never Used Substance Use Topics Alcohol use: No Drug use: Never Current Outpatient Medications Medication Sig cholecalciferol, Vitamin D3, (VITAMIN D3) 1,250 mcg (50,000 unit) cap capsule Take 1 capsule by mouth every other week. iv contrast (will be provided with radiology test) CT Chest W -Inject, intravenously, once for 1 dose.No IV access, insert saline lock prior to the beginning of sedation, infusion, injection of imaging exam. Discontinue saline lock post exam. If Pt. has a central line or IVAD, may access for administration according to line specific nursing protocol. Once exam is complete flush line and de-accessaccording to line specific nursing protocol in the CT contrast administration guidelines link. oxyCODONE-acetaminophen (PERCOCET) 5-325 mg tablet Take by mouth every 6 hours as needed. leflunomide (ARAVA) 20 mg tablet Take 1 tablet by mouth once daily Fluticasone Propionate (CUTIVATE) 0.05 % cream Apply to affected area two times a day. meclizine (ANTIVERT) 25 mg tab Take 25 mg by mouth three times a day as needed (for dizziness). atorvastatin (LIPITOR) 80 mg tablet Take 80 mg by mouth once daily. kymlne-vwsqozun-kzwkpwa (CREON 36) 36,000-114,000- 180,000 unit delayed release capsule Take by mouth with meals and at bedtime. With snacks also furosemide (LASIX) 20 mg tablet Take 20 mg by mouth once daily. budesonide, enteric coated (ENTOCORT EC) 3 mg 24 hr capsule Take 2 capsules by mouth every afternoon. pantoprazole DR (PROTONIX) 40 mg tablet Take 40 mg by mouth once daily. dicyclomine (BENTYL) 20 mg tablet Take 10 mg by mouth three times a day. VITAMIN B-12 1,000 mcg tab DISSOLVE 1 TABLET BY MOUTH ONCE DAILY amLODIPine (NORVASC) 5 mg tablet Take 7.5 mg by mouth once daily. Takes 7.5 mg each day promethazine (PHENERGAN) 25 mg tablet Take 1 tablet by mouth every 6 hours as needed for nausea/vomiting. clopidogrel (PLAVIX) 75 mg tablet Take 75 mg by mouth once daily. FLUoxetine (PROZAC) 20 mg capsule Take 3 capsules by mouth once daily. abatacept/maltose (ORENCIA, WITH MALTOSE, INTRAVENOUS) Inject intravenously. albuterol HFA (VENTOLIN HFA) 90 mcg/actuation inhaler Inhale 2 Puffs as instructed every 4 hours asneeded for wheezing/shortness of breath. mometasone (NASONEX) 50 mcg/actuation nasal spray Use 2 Sprays in the nose once daily. Rinse mouth after use. acetaminophen (TYLENOL) 325 mg tablet Take by mouth every 6 hours as needed. albuterol (PROVENTIL) 2.5 mg /3 mL (0.083 %) nebulizer solution Use 3 mL via nebulizer every 6 hours as needed for Wheezing/Shortness of Breath. >Nebulizer For Home Nebulizer for home use. Diagnosis: Moderate persistent asthma with acute exacerbation and pneumonia buPROPion XL (WELLBUTRIN XL) 150 mg 24 hr tablet Take 1 tablet by mouth once daily. No current facility-administered medications for this visit. ALLERGIES Allergen Reactions Cymbalta [Duloxetin* Intolerance Headaches Nsaids (Non-Steroid* Anaphylaxis Had anaphylactic reaction to Aleve Vibramycin [Doxycyc* Anaphylaxis Dilaudid [Hydromorp* Vomiting Morphine Vomiting Horse/Equine Contai* Swelling Vicodin [Hydrocodon* Vomiting Can take if given antiemetic at same time History Review: I have reviewed and modified as needed, the following during this visit: Allergies,Past Medical History, Past Surgical History, Past Family History, Past Social History. There were no vitals taken for this visit. REVIEW OF SYSTEMS: GENERAL: feeling well without fatigue, no recent change in weight As noted in HPI PHYSICAL EXAMINATION: VIDEO EXAM: (if completed, performed via video enabled technology) GENERAL: alert and appropriate, in no distress, well-hydrated, well nourished, and happy, smiling, interactive Labs: 09/22 Cr 0.7 LFT normal CBC normal Hepatitis panel neg HIV neg 02/18 Cr 0.82 LFT normal CBC with hgb 10.2 03/2023 Cr 0.8 LFT normal CRP normal Vit D 89.2 Hep panel neg CBC normal ESR 26 TB neg 05/2022 Cr 0.7 LFT normal CBC normal 10/2021 Creatinine0.63 Liver enzymes normal CRP normal CBC normal ESR 12 Serology: RF positive, CCP positive Radiology: BMD 08/22 Osteoporosis 10-year absolute fracture risk: - major osteoporotic fracture = 14 % - hip fracture = 2.0 % Lumbar spine (L1, L2, L3, L4): 0.750 g/cm2, T-score -2.7 , Z-score -0.9 Lumbar spine: 2021 : 0.767 g/cm2 No statistically significant change Right Femoral Neck: 0.656 g/cm2, T-score -1.7 , Z-score -0.2 Right Femoral Neck: 2021 : 0.710 g/cm2 Statistically significant decrease Right Total Hip: 0.763 g/cm2, T-score -1.5 , Z-score -0.2 Right Total Hip: 2021 : 0.824 g/cm2 Statistically significant decrease IMPRESSION: Large hiatal hernia. Again seen is mild, diffuse bronchial wall thickening. Interval development of multifocal bilateral groundglass attenuation airspace opacities within both lungs, concerning for multifocal pneumonia. Interval follow-up examination after treatment is recommended in order to ensure resolution. Sequela of remote granulomatous disease. Interval development of tiny pulmonary nodules, measuring up to 2 mm in size. Incidental Finding: No follow-up imaging for this/these incidentally detected lung nodule(s) is recommended. If there are risk factors for lung malignancy, a follow-up chest CT exam could be obtained in 12 months. Interval development of anterior mediastinal lymphadenopathy. IMPRESSION: MODERATE TO MARKED OSTEOARTHRITIS OF THE PATELLOFEMORAL AND MEDIAL COMPARTMENT. NONDISPLACED MEDIAL MENISCUS TEAR. PARTIALLY RUPTURED MATTHEW'S CYST. Impression IMPRESSION: Mild spondylotic changes as detailed noting multilevel facet arthropathy, most pronounced at L4-5 and L5-S1. No significant canal or foraminal narrowing. Anatomic Thoracic/Lumbar Variant: None. L4-5 is considered the level of the iliac crest and assume there are 5 lumbar-type vertebrae. 07/19 - IMPRESSION: 1. Osteoporosis. 2. Osteopenia in the right hip/femoral neck. LUMBAR SPINE: The bone mineral density from L1 through L4 is 0.767 grams per square centimeter which yields a T-score of -2.5. There has been an 8.9% statistically significant interval increase in bone mineral density. RIGHT HIP: The bone mineral density of the total region of the hip is 0.824 grams per square centimeter which yields a T-score of -1.0. RIGHT FEMORAL NECK: The bone mineral density of the femoral neck is 0.710 grams per square centimeter which yields a T-score of -1.3. 10-year Fracture Risk (FRAX): Major osteoporotic fracture risk 25% Hip fracture risk is 2.4% 10/18 Electrodiagnostic impression: This is a normal electrodiagnostic study of the right upper and right lower limb. There is no electrodiagnostic evidence for peripheral neuropathy, cervical radiculopathy or lumbosacral radiculopathy. ANCA neg ASSESSMENT: (M05.79) Rheumatoid arthritis involving multiple sites with positive rheumatoid factor (HCC) (primary encounter diagnosis) (Z79.899) High risk medication use (E55.9) Vitamin D deficiency (M81.6) Localized osteoporosis without current pathological fracture (D50.9) Iron deficiency anemia, unspecified iron deficiency anemia type 64-year-old woman is here for follow-up. Patient has seropositive rheumatoid arthritis, erosive osteoarthritis and osteoporosis. She was on Humira and Arava however discontinued due to being sick. Patient was switched to Orencia infusions. Had been doing well on combination Orencia IV every 4 weeks infusions and Arava 20 mg daily. Osteoporosis. Bone density shows improvement since starting Reclast. BMD shows osteoporosis with T score -2.5 lumbar spine. S/p Reclast 02/2018, 05/2019, 12/2020, 12/2021, 03/2023. Would like her to have 1 additional dose 04/2024 for a total of 6 doses, obtain bone density 07/21 and then take a drug holiday. Continue 50,000 units every other week. Patient said she saw pulmonology, was told she did not have RA-ILD. 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 Following with cardiology for chronic diastolic heart failure. Carotid artery atherosclerosis. On Plavix Vanessa fundoplication completed, doing better. She has had left trochanteric bursitis in past. Recommend exercises and stretching. Injections can be considered in the future if needed. She is seeing spine and pain management and receiving procedures in her low back Patient has erythematous scaling lesions noted to her fingers with extreme itching, looks suspicious for eczema. Seeing PCP. Has not seen derm to confirm if truly has psoriasis. Dumping syndrome, crohn's disease. Seeing GI. On budesonide. Iron def anemia- had iron infusions PLAN: Recently diagnosed with anal cancer, planning chemo/XRT 10/05/24 Discussed case with oncology, holding off on Orencia until 6 weeks AFTER completion of chemo/XRT When cancer is clear- can resume Orencia IV every 4 weeks Continue Arava 20 mg daily For osteoporosis, continue Reclast for one more time. This will be her 6th Reclast. May need to switch to Prolia or Forteo. Last BMD 08/22- some decline. Discuss changing to Prolia next visit Labs every 3 months Would like her eventually to come off budesonide as she is currently undergoing treatment for osteoporosis and has had history of fractures in the past, may need to discuss long-term treatment for Crohn's disease with GI There are no Patient Instructions on file for this visit. Sarah Pearson PA-C I spent a total of 20 minutes on the date of the service which included preparing to see the patient, [id number] patient care, completing clinical documentation, obtaining and/or reviewing separately obtained history, performing a medically appropriate examination, counseling and educating the pat ient/family/caregiver, ordering medications, tests, or procedures, independently interpreting results (not separately reported), communicating results to the patient/family/caregiver, and care coordination (not separately reported). documented in this encounterC[facility] Telephone encounter Note * Telephone Encounter - Kari Harrington RN - 09/29/2024 9:44 AM EST Radiation therapist notified of change of start date to 10/05/24 [facility]03-04-2025 Miscellaneous Notes* Telephone Encounter - Kari Harrington RN - 09/29/2024 9:44 AM EST Radiation therapist notified of change of start date to 10/05/24 * Telephone Encounter - Nikkie Walter LPN - 09/28/2024 3:27 PM EST Patient is scheduled for PICC placement 10/02/2024 @ 10:00, [facility]. Patient is aware of appointment date and time. Nikkie Walter LPN * Telephone Encounter - Jordyn Fernandez - 09/28/2024 12:37 PM EST Appointments scheduled. Waiting to hear from [facility] regarding PICC line * Telephone Encounter - Jordyn Fernandez - 09/28/2024 10:47 AM EST Nikkie sent an order to [facility] IR requesting PICC line placement * Telephone Encounter - Roxanne Bland RN - 09/28/2024 10:[address] Bennett, she will need a PICC line prior to starting treatment and the plan is to keep the PICC line in for the duration for chemotherapy d/t patient being a difficult stick. Patient will need weekly dressing changes; can schedule as a nurse visit on Saturday' and complete with weekly labs. Thank you. Roxanne Bland RN * Telephone Encounter - Jordyn Fernandez - 09/28/2024 9:44 AM EST Schedule treatment and advised patient of start date. Start email sent. Patient states Picc line was mentioned. Please advise before remaining appointments are scheduled. The following need scheduled once answer on Picc Line. Once patient starts treatment, she will need: CBC/CMP D1 DONE CBC weekly x 8 weeks OV weeks 3, 5, 8 (can alternate with 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) CBC/CMP D29 DONE CBC/CMP week 8 with OV (3 weeks after last dose of chemo) Thank you. Roxanne Bland RN * Telephone Encounter - Josh Bennett DO - 09/27/2024 2:45 PM EST Can treatment start on 10/05? The chemotherapy regiment is a M-F infusion of 5FU. Josh Bennett DO * Telephone Encounter - Jordyn Fernandez - 09/25/2024 4:21 PM EST Concurrent chemo/XRT- [facility] - [id number] starting XRT on 10/06 per Mitra See notes from Roxanne below for ov and labs needed with chemo scheduling Patient had chemo ed on 09/25 * Telephone Encounter - Kari Harrington RN - 09/25/2024 3:[address] let [address] Joya know we are ready to proceed. We can let you know when sim /treatment is scheduled * Telephone Encounter - Roxanne Bland RN - 09/25/2024 1:36 PM EST Patient would like to know the stage of her anal cancer. Please advise. Kari/Cesilia-- do you know when patient will be set up for sim? Once patient starts treatment, she will need: CBC/CMP D1 CBC weekly x 8 weeks OV weeks 3, 5, 8 (can alternate with STATISTICAL MACHINE MECHANIC) CBC/CMP D29 CBC/CMP week 8 with OV (3 weeks after last dose of chemo) Thank you. Roxanne Bland RN * Telephone Encounter - Roxanne Bland RN - 09/25/2024 10:20 AM EST Patient is scheduled for a chemo edu today. I can discuss results at that time. Roxanne Bland RN * Telephone Encounter - Josh Bennett DO - 09/24/2024 4:58 PM EST Okay to give her results. Will proceed with chemotherapy and radiation as planned. 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 It's p16 positive. AREA:Pelvis/groin PATIENT POSITION: Supine. CONTRAST: None PROTOCOL: None BLOCKING: Custom blocking to be determined at treatment planning. FIXATION DEVICE: In order to achieve accurate and reproducible treatments, the patient is to be immobilized with custom vacbag. PROCEDURE: A time-out was conducted and recorded by the therapist. Patient was simulated on the CT scanner for external beam radiation therapy. Treatment site was marked by the simulation therapist. ASSESSMENT/PLAN: Patient tolerated simulation procedure well. Treatments will be initiated after treatment planning. The patient is scheduled for a verification simulation on the treatment machine toensure proper set-up and field arrangement is correct prior to the first treatment of primary and boost barrios if applicable. Electronically Signed Sidney Joya M.D./billie 53:14 PM documented in this encounterC[facility]03-04-2025 History of Present illness Narrative* Sidney Joya MD - 09/29/2024 12:00 AM EST MARIMAR WANG [id number] 09/29/2024 [facility] Department of Radiation Oncology Treatment Planning Note For reasons stated in the consult note, Marimar Wang is a candidate for radiation therapy. Basedon review and interpretation of the relevant diagnostic studies together with the exam findings, Marimar Wang was simulated on 09/29/2024 at which time the target volume and/or requisite barrios were delineated, as indicated in the simulation note, to be treated according to the prescription. The treatment target and organs at risk were contoured on the simulation scan using the fused MRI. Special consideration to these and other structures was given in light of the potential for increased toxicities of combined chemoradiation, and presence of prosthesis in treatment field. After reviewing multiple treatment plans with dosimetry, the best plan was approved to deliver the prescribed course of radiation to the target area using inverse planning to allow for the best isodose distribution, treating to the 97.8% isodose line with 10MV and 4 vmat barrios. Custom MLC for IMRTwere the treatment device(s) used to shape/modify the beams. Limiting dose to normal tissue was confirmed upon review of the calculated dose volume histogram. IMRT planning was used because it best met the dose/volume constraints for the organs at risk for this patient, better than what could be achieved using conventional or 3D planning. The specific doserequirements for the PTV, organs at risk and dose-volume histograms are contained in this treatmentplan and/or elsewhere in the medical record. A completed summary of this plan dated 10/02/2024 incorporated herein by reference includes dose, beam arrangements, energy, blocking, isodose distribution, and/or ports and DVH. Electronically Signed Sidney Joya M.D. 52:38 PM documented in this encounterC[facility]03-04-2025 [facility]03-04-2025 [facility] Telephone encounter Note* Telephone Encounter - Candace Alvarenga MA - 09/28/2024 4:04 PM EST Can we change this patient's appointment to a virtual per patient's request? She is scheduled for tomorrow 09-29-24 in [place] with Sarah. [facility]03-03-2025 Miscellaneous Notes* Telephone Encounter - Candace Alvarenga MA - 09/28/2024 4:04 PM EST Can we change this patient's appointment to a virtual per patient's request? She is scheduled for tomorrow 09-29-24 in [place] with Sarah. documented in this encounterC[facility]03-03-2025 Telephone encounter Note * Telephone Encounter - Nikkie Walter LPN - 09/28/2024 3:27 PM EST Patient is scheduled for PICC placement 10/02/2024 @ 10:00, [facility]. Patient is aware of appointment date and time. Nikkie Walter LPN [facility]03-03-2025 Telephone encounter Note* Telephone Encounter - Jordyn Fernandez - 09/28/2024 12:37 PM EST Appointments scheduled. Waiting to hear from [facility] regarding PICC line [facility] Work Phone: [phone]) 539-560903-03-2025 Telephone encounter Note* Telephone Encounter - Jordyn Fernandez - 09/28/2024 10:47 AM EST Nikkie sent an order to [facility] IR requesting PICC line placement [facility]03-03-2025 Telephone encounter Note* Telephone Encounter - Roxanne Bland RN - 09/28/2024 10:[address] Bennett, she will need a PICC line prior to starting treatment and the plan is to keep the PICC line in for the duration for chemotherapy d/t patient being a difficult stick. Patient will need weekly dressing changes; can schedule as a nurse visit on Saturday' and complete with weekly labs. Thank you. Roxanne Bland RN [facility]03-03-2025 Telephone encounter Note* Telephone Encounter - Jordyn Fernandez - 09/28/2024 9:44 AM EST Schedule treatment and advised patient of start date. Start email sent. Patient states Picc line was mentioned. Please advise before remaining appointments are scheduled. The following need scheduled once answer on Picc Line. Once patient starts treatment, she will need: CBC/CMP D1 DONE CBC weekly x 8 weeks OV weeks 3, 5, 8 (can alternate with STATISTICAL MACHINE MECHANIC) CBC/CMP D29 DONE CBC/CMP week 8 with OV (3 weeks after last dose of chemo) Thank you. Roxanne Bland RN [facility]03-02-2025 Telephone encounter Note* Telephone Encounter - Josh Bennett DO - 09/27/2024 2:45 PM EST Can treatment start on 10/05? The chemotherapy regiment is a M-F infusion of 5FU. Josh Bennett DO [facility]02-28-2025 Telephone encounter Note* Telephone Encounter - Jordyn Fernandez - 09/25/2024 4:21 PM EST Concurrent chemo/XRT- Marimar Wang - [id number] starting XRT on 10/06 per Mitra See notes from Roxanne below for ov and labs needed with chemo scheduling Patient had chemo ed on 09/25 [facility]02-28-2025 Telephone encounter Note* Telephone Encounter - Kari Harrington RN - 09/25/2024 3:[address] let [address] Joya know we are ready to proceed. We can let you know when sim /treatment is scheduled [facility]02-28-2025 [facility]02-28-[facility] History of Present illness Narrative* Roxanne Bland RN - 09/25/2024 2:52 PM EST This visit was completed by phone. Audiovisual Tech Pre Chemo Patient identified by name and date of . YES Confirmed date and time for chemotherapy ? YES Other appointments (labs, imaging) discussed? YES Discussed where to park (human resources safety manager), charge for parking YES Discussed where to report (building/floor) YES Any pre-medications ordered? NO Described the infusion room and what to expect. (What to wear, what to bring [iPad, books] amount of time treatment can take, meals and CC options for food) YES Note: Discussed whether the patient can eat prior to labs and treatment. YES Who is driving you to and from treatment? Daughter Discussed why it is important to bring someone with you. Yes, for the first treatment Resources discussed (music therapy, Art therapy, pet therapy, etc.) NO Education on chemotherapy (drug, side effects) discussed and that the patient will be receiving a C1D1 call within 7 days of treatment. YES Other topics discussed, interventions needed: Roxanne Bland RN ONCOLOGY PATIENT EDUCATION NOTE TOPIC: Chemotherapy, Medications: 5FU/Mitomycin C patient and daughter called today for education for treatment of Colon / Rectal Cancer Anticipated/Scheduled start date: TBD READINESS TO LEARN: COGNITIVE ABILITY: Alert and oriented MOTIVATION TO LEARN: Interested FAMILY SUPPORT: High - Very involved in pt care INSTRUCTION PROVIDED TO: Patient and Daughter INSTRUCTION PROVIDED BY: Nurse Coordinator PATIENT LEARNS BEST BY: Multiple Methods FACTORS AFFECTING LEARNING: None PHYSICAL LIMITATIONS AFFECTING LEARNING: None LEARNING RESPONSE METHOD OF INSTRUCTION: Individual instruction Written instruction/Handouts Verbal instruction PATIENT/FAMILY RESPONSE: Verbalizes understanding of: CHEMOTHERAPY-Regimen, toxicity and side effects FOLLOW UP PLAN: Patient instructed to call with any further issues Recommend - Recommend continued instruction and follow up as directed Follow up phone call. Contact information given. SUPPLEMENTAL MATERIAL: Written material was provided at this visit with the following information: - Chemotherapy education was provided by a pharmacist NO - Side effect management information was provided/discussed including but not limited to: anemia, appetite changes, bowel habit changes, diet, electrolyte disturbances, fatigue, hair loss, infection,mouth hygiene, mucositis, nausea/vomitting, neutropenia, taste changes, thrombocytopenia YES - Provided important phone numbers and contacts during and after hours. YES - Provided information on symptoms that require immediate assistance. YES - Provided Chemotherapy when to call handouts YES - Preventing infection. YES - Treatment schedule and confirmation of appointment times. YES - Available support groups. YES - The importance of contraception during the course of chemotherapy YES - Neutropenic fever protocol discussed with patient, which included the importance of reporting anyfever of 100.4F (38.0C) or greater to the healthcare team as noted on the provided wallet card and/or magnet. YES Time Spent: 60 minutes REFERRAL (RECOMMENDATION): Social Work Roxanne Bland RN documented in this encounterC[facility] Telephone encounter Note * Telephone Encounter - Roxanne Bland RN - 09/25/2024 1:36 PM EST Patient would like to know the stage of her anal cancer. Please advise. Kari/Cesilia-- do you know when patient will be set up for sim? Once patient starts treatment, she will need: CBC/CMP D1 CBC weekly x 8 weeks OV weeks 3, 5, 8 (can alternate with STATISTICAL MACHINE MECHANIC) CBC/CMP D29 CBC/CMP week 8 with OV (3 weeks after last dose of chemo) Thank you. Roxanne Bland RN [facility]02-28-2025 Telephone encounter Note* Telephone Encounter - Roxanne Bland RN - 09/25/2024 10:20 AM EST Patient is scheduled for a chemo edu today. I can discuss results at that time. Roxanne Bland RN [facility]02-27-2025 [facility] History of Present illness Narrative* Kimmy Dixon APRN.TRACY - 09/24/2024 6:26 PM EST Patient came in with complaints of severe rectal and vagina pain and barely sit. Patient says she cannot hardly make urine. Patient does have rectal and vaginal cancer. At this time patient is being referred to the emergency room for full evaluation. Patient agreeable granddaughter will take her. documented in this encounterC[facility]02-27-2025 Telephone encounter Note * Telephone Encounter - Josh Bennett DO - 09/24/2024 4:58 PM EST Okay to give her results. Will proceed with chemotherapy and radiation as planned. Josh Bennett DO [facility]02-27-2025 Telephone encounter Note* Telephone Encounter - Jordyn Fernandez - 09/24/2024 3:14 PM EST Patient requesting 09/23 CT and MRI results [facility]02-26-2025 History of Present illness Narrative* Reef Karly Perales, RT(R) - 09/23/2024 3:20 PM EST Radiology Service Progress Note DATE OF SERVICE: September 23, 2024 TIME: 4:31 PM PATIENT IDENTITY VERIFICATION COMPLETED USING TWO (2) STANDARD IDENTIFIERS: Name and Date of confirmed by patient verbally. FALL SCREENING: Has the patient had 2 falls in the last year or 1 fall with injury or currently using an Ambulatory Assistive Device (Walker, Cane, Wheelchair, Crutches, etc.)? No PATIENT GENDER DATA: Assigned female at . status: : No status:NO. PATIENT RELEVANT IMPLANT DATA REVIEWED: Yes PATIENT PRESENTS WITH AN IMPLANTABLE OR ATTACHED PEDIATRIC SURGEON: No ALLERGIES: Reviewed and unchanged CONTRAST ALLERGY: NO. EXAM: CT -CONTRAST INDUCED NEPHROPATHY RISK FACTORS: Patient age > 60 years CREATININE: Creatinine Date Value Ref Range Status 09/16/2024 0.70 0.58 - 0.96 mg/dL Final 05/21/2024 0.77 0.58 - 0.96 mg/dL Final 01/29/2024 0.82 0.58 - 0.96 mg/dL Final Estimated Glomerular Filtration Rate Date Value Ref Range Status 09/16/2024 96 >=60 mL/min/1.73m Final Comment: Estimated Glomerular Filtration Rate (eGFR) is calculated using the 2020 CKD-EPI creatinine equation. This equation utilizes serum creatinine, sex, and age as parameters. The creatinine assay has traceable calibration to isotope dilution- mass spectrometry. Refer to KDIGO guidelines for clinical interpretation. In patients with unstable renal function, e.g. those with acute kidney injury, the eGFRmay not accurately reflect actual GFR. eGFR- Date Value Ref Range Status 05/19/2021 >60 Final P.O.C.T. RESULTS: POC done: Yes, See Lab Tab September 23, 2024 TREATMENT: N/A PERIPHERAL IV DATA: Ambulatory: A peripheral IV was started in the Left antecubital site with a Angio cath: 22 gauge. RADIOLOGY DEPARTMENT: CT; Exam(s) Completed: Chest SIGNATURE: RT Uday(R) PATIENT NAME: Marimar Wang DATE: September 23, 2024 TIME: 4:31 PM documented in this encounterCleveland Clinic [facility]02-26-2025 NoteL[facility]02-26-[facility] History of Present illness Narrative* Jackie Fan, RT(R) - 09/23/2024 2:30 PM EST Radiology Service Progress Note DATE OF SERVICE: September 23, 2024 TIME: 2:39 PM PATIENT IDENTITY VERIFICATION COMPLETED USING TWO (2) STANDARD IDENTIFIERS: Name and Date of confirmed by patient verbally. FALL SCREENING: Has the patient had 2 falls in the last year or 1 fall with injury or currently using an Ambulatory Assistive Device (Walker, Cane, Wheelchair, Crutches, etc.)? Yes, Patient High Riskfor Falls What interventions were put in place to prevent falls during this visit? Instructed Patient to Callfor Help if Needed, Offered Assistance with Transfers/Clothing, Instructed Patient to Remain Seated(Not on Exam Table) Until Exam, and Increased Observations by Caregivers PATIENT GENDER DATA: Assigned female at . status: : No status:NO. PATIENT RELEVANT IMPLANT DATA REVIEWED: Yes PATIENT PRESENTS WITH AN IMPLANTABLE OR ATTACHED PEDIATRIC SURGEON: No ALLERGIES: Reviewed and unchanged CONTRAST ALLERGY: NO. EXAM: MRI - CONTRAST TYPE: GROUP II PERIPHERAL IV DATA: Ambulatory: A peripheral IV was started in the Left WRIST with a Angio cath: 22gauge. RADIOLOGY DEPARTMENT: MR; Exam(s) Completed: Body: Rectal SIGNATURE: Imaniphilippe Fan, RT(R) PATIENT NAME: Marimar Wang DATE: September 23, 2024 TIME: 2:39 PM documented in this encounterCleveland Clinic [facility]02-26-2025 NoteL[facility]02-25-2025 Telephone encounter Note* Telephone Encounter - Jordyn Fernandez - 09/22/2024 9:53 AM EST Patient called for genotyping lab results. Informed her they are still in process. [facility] Work Phone: 1(489) 718-220302-25-2025 Miscellaneous Notes* Telephone Encounter - Jordyn Fernandez - 09/22/2024 9:53 AM EST Patient called for genotyping lab results. Informed her they are still in process. documented in this encounterC[facility]02-21-2025 Telephone encounter Note * Telephone Encounter - Raul Hendrix LISW - 09/18/2024 10:15 AM EST SOCIAL WORK FOLLOW UP NOTE: [facility] Date of service: September 17, 2024 Marimar Wang is being seen for a follow up social work visit. Today's visit includes: patient TOPICS ADDRESSED: SHILPA met with pt this date. Pt inquiring about advanced directive forms. SW answered all questions as able and offered to assist pt in completing forms. Pt reports she would like to take the forms home, complete with her daughter, and bring back. SW gave pt a copy of forms and offered to answer any questions or assist in finalizing when pt returns. Pt in agreement. Pt also noted on PRO [employer] report with a PHQ of 14. Assessed pt as able in brief time allotted. Pt reports no major concerns. SW will assess pt more fully when returns with completed AD forms. Advance Care Planning - to be addressed at next encounter when forms returned. In this encounter: Provided education on Advance Directives and offered a copy of forms. PLAN: Continue follow up as needed F/U APPOINTMENT: PRN Assigned SHILPA listed in Care Team tab: Yes Assessment Completed HARITHA Massey [facility]02-21-2025 Miscellaneous Notes* Telephone Encounter - Raul Hendrix LISW - 09/18/2024 10:15 AM EST SOCIAL WORK FOLLOW UP NOTE: [facility] Date of service: September 17, 2024 Marimar Wang is being seen for a follow up social work visit. Today's visit includes: patient TOPICS ADDRESSED: SHILPA met with pt this date. Pt inquiring about advanced directive forms. SW answered all questions as able and offered to assist pt in completing forms. Pt reports she would like to take the forms home, complete with her daughter, and bring back. SW gave pt a copy of forms and offered to answer any questions or assist in finalizing when pt returns. Pt in agreement. Pt also noted on [employer] report with a PHQ of 14. Assessed pt as able in brief time allotted. Pt reports no major concerns. SW will assess pt more fully when returns with completed AD forms. Advance Care Planning - to be addressed at next encounter when forms returned. In this encounter: Provided education on Advance Directives and offered a copy of forms. PLAN: Continue follow up as needed F/U APPOINTMENT: PRN Assigned SHILPA listed in Care Team tab: Yes Assessment Completed HARITHA Massey documented in this encounterCleveland Clinic [facility]02-20-2025 NoteL[facility]02-20-2025 History of Present illness Narrative* Elisabeth Quintero, LÓPEZ - 09/17/2024 10:25 AM EST Radiation Therapy - Nursing Note (Consult) PATIENT NAME: Marimar Wang PATIENT September 17, 2024 [facility] [place]/LOCATION: [place] Chief Complaint: consult Reason for visit: Consult. Referring physician: Internal provider Dr Bennett Subjective Data: see pain assessment Additional Data Do you want to see a Manager Lsw? No Are you interested in information about fertility? No Status: Post-menopausal Stress Scale: On a scale of 0 to 10, what number best describes how much distress you have experienced in the past week?(0 being no distress and 10 being extreme distress) 5 Social work notified: Pt denied need to see social work instructor at this time. SIGNED by: Elisabeth Quintero RN * Sidney Joya MD - 09/17/2024 10:14 AM EST Radiation Oncology - New Patient/Consult Note PATIENT NAME: Marimar Wang PATIENT REQUESTING PROVIDER: Dr. 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 It's p16 positive. HPI: 64 year old female who presents with above diagnosis, for an opinion regarding the role of radiation therapy in the management of the patient's disease. Final recommendations will be communicated back to the requesting physician by way of the shared medical record, or letter to requesting physician via US mail. 64 year old woman who was diagnosed with Crohn's disease in 2022 when colonoscopy in 10/2022 showed congested mucosa in the ascending colon, hepatic flexure and descending colon. She is on budesonide and Bentyl. She was also diagnosed with RA in 2011 and is on abatacept and Arava. She had increasing rectal pain of the right perirectal area early this month. She also had some stool leakage. She went to the [facility] ED and was found to have anal mass. CT abdomen/pelvis on 09/02/24 showed a 5.4 cm x 1.6 cm fluid collection with adjuvant fat stranding thought to be compatible with an abscess. On examination at that time by Dr. Kenya Garcia, She had a perianal mass. This extended jail external to the anal verge and seemed to extend another 2 to 3 cm beyond the anal verge towards the rectum. The seem very hard. There was a very high suspicion for malignancy Dr. Garcia made a 1.5 cm incision and he encountered mostly bloody fluid. There was certainly a cavity in this vicinity no monica pus was appreciated. The mass measuring 4.5 - 5 cm in the right sides perianal region. Biopsy of the perianal mass on 09/02/24 showed moderately differentiated invasive squamous cell carcinoma. It's P16 positive. ALLERGIES Allergen Reactions Cymbalta [Duloxetin* Intolerance Headaches Nsaids (Non-Steroid* Anaphylaxis Had anaphylactic reaction to Aleve Vibramycin [Doxycyc* Anaphylaxis Dilaudid [Hydromorp* Vomiting Morphine Vomiting Horse/Equine Contai* Swelling Vicodin [Hydrocodon* Vomiting Can take if given antiemetic at same time Current Outpatient Medications on File Prior to Visit Medication Sig cholecalciferol, Vitamin D3, (VITAMIN D3) 1,250 mcg (50,000 unit) cap capsule Take 1 capsule by mouth every other week. iv contrast (will be provided with radiology test) CT Chest W -Inject, intravenously, once for 1 dose.No IV access, insert saline lock prior to the beginning of sedation, infusion, injection of imaging exam. Discontinue saline lock post exam. If Pt. has a central line or IVAD, may access for administration according to line specific nursing protocol. Once exam is complete flush line and de-accessaccording to line specific nursing protocol in the CT contrast administration guidelines link. iv contrast (will be provided with radiology test) MRI Pelvis Inject, intravenously, once for 1 dose. No IV access, insert saline lock prior to the beginning of sedation, infusion, injection of imaging exam. Discontinue saline lock post exam. If Pt has a central line or IVAD, may access for administration according to line specific nursing protocol. Once exam is complete flush line and de-access according to line specific nursing protocol in the MR contrast administration guidelines link. oxyCODONE-acetaminophen (PERCOCET) 5-325 mg tablet Take by mouth every 6 hours as needed. leflunomide (ARAVA) 20 mg tablet Take 1 tablet by mouth once daily Fluticasone Propionate (CUTIVATE) 0.05 % cream Apply to affected area two times a day. meclizine (ANTIVERT) 25 mg tab Take 25 mg by mouth three times a day as needed (for dizziness). atorvastatin (LIPITOR) 80 mg tablet Take 80 mg by mouth once daily. twdimy-oalznrcx-ewlqcnn (CREON 36) 36,000-114,000- 180,000 unit delayed release capsule Take by mouth with meals and at bedtime. With snacks also furosemide (LASIX) 20 mg tablet Take 20 mg by mouth once daily. budesonide, enteric coated (ENTOCORT EC) 3 mg 24 hr capsule Take 2 capsules by mouth every afternoon. pantoprazole DR (PROTONIX) 40 mg tablet Take 40 mg by mouth once daily. dicyclomine (BENTYL) 20 mg tablet Take 10 mg by mouth three times a day. VITAMIN B-12 1,000 mcg tab DISSOLVE 1 TABLET BY MOUTH ONCE DAILY amLODIPine (NORVASC) 5 mg tablet Take 7.5 mg by mouth once daily. Takes 7.5 mg each day promethazine (PHENERGAN) 25 mg tablet Take 1 tablet by mouth every 6 hours as needed for nausea/vomiting. clopidogrel (PLAVIX) 75 mg tablet Take 75 mg by mouth once daily. FLUoxetine (PROZAC) 20 mg capsule Take 3 capsules by mouth once daily. abatacept/maltose (ORENCIA, WITH MALTOSE, INTRAVENOUS) Inject intravenously. (Patient not taking: Reported on 09/15/2024) albuterol HFA (VENTOLIN HFA) 90 mcg/actuation inhaler Inhale 2 Puffs as instructed every 4 hours asneeded for wheezing/shortness of breath. buPROPion XL (WELLBUTRIN XL) 150 mg 24 hr tablet Take 1 tablet by mouth once daily. mometasone (NASONEX) 50 mcg/actuation nasal spray Use 2 Sprays in the nose once daily. Rinse mouth after use. acetaminophen (TYLENOL) 325 mg tablet Take by mouth every 6 hours as needed. albuterol (PROVENTIL) 2.5 mg /3 mL (0.083 %) nebulizer solution Use 3 mL via nebulizer every 6 hours as needed for Wheezing/Shortness of Breath. >Nebulizer For Home Nebulizer for home use. Diagnosis: Moderate persistent asthma with acute exacerbation and pneumonia No current facility-administered medications on file prior to visit. PAST MEDICAL HISTORY Diagnosis Date Asthma Homer lesion, acute 01/30/2019 Carotid artery stenosis bilateral- US in [facility] COPD (chronic obstructive pulmonary disease) (HCC) Crohn disease (HCC) Depression Diverticulosis Fibromyalgia GERD (gastroesophageal reflux disease) GI bleed 02/2019 Hiatal hernia Repaired 05/07/19 Hyperlipidemia Hypertension Insomnia Iron deficiency anemia Iron deficiency anemia Osteoarthritis Osteoporosis Piriformis syndrome PVC's (premature ventricular contractions) Rheumatoid arthritis (HCC) Sjogren's disease (HCC) Vitamin D deficiency Prior radiation therapy, collagen vascular disease, or inflammatory bowel disease: No Any implanted or external electric devices? No status: Post-menopausal. PAST SURGICAL HISTORY Procedure Laterality Date ARTHRP KNE CONDYLE&PLATU MEDIAL&LAT COMPARTMENTS 2009 Total left knee surgery COLONOSCOPY FLX DX W/COLLJ SPEC WHEN PFRMD 04/11/2015 diverticulosis, no specimens collected Dr. Tapia COLONOSCOPY FLX DX W/COLLJ SPEC WHEN PFRMD 09/23/[address] Tapia EGD 01/30/2019 large hiatal hernia with Homer erosions, likely source of GI bleed Dr. Rudolph EGD 09/15/2007 patulous GE junction, nonobstructive Schatzki's ring, bile reflux of stomach, hiatal hernia, neg H pylori EGD EUS N/A 07/07/2020 3 cm sliding hiatal hernia, no obst Schatzki's ring, mild duodenitis, mild/moderate gastritis EGD TRANSORAL BIOPSY SINGLE/MULTIPLE 02/17/2020 retained contents in stomach, bxs negative Dr. Pat ESOPHAGOGASTRODUODENOSCOPY TRANSORAL DIAGNOSTIC 05/07/2016 sliding hiatal hernia, no source of GI bleed Dr. Laureano ESOPHAGOGASTRODUODENOSCOPY TRANSORAL DIAGNOSTIC 09/23/2017 normal, bxs negative Dr. Tapia GI TRC IMG INTRALUMINAL ESOPHAGUS-ILEUM W/I&R 10/04/2017 Normal smallbowel Capsule endosocpy HIATAL HERNIA REPAIR HX 04/2019 LAPS RPR PARAESPHGL HRNA INCL FUNDPLSTY W/MESH 05/07/2019 Dr. Pat MRI BRAIN W/O CONTRAST 07/20/2011 PARTIAL HIP REPLACEMENT Left 2020 PAST SURGICAL HISTORY OF 1983, 1986 2 C Sections PAST SURGICAL HISTORY OF 1982 Left shoulder, has screw in shoulder PAST SURGICAL HISTORY OF 09/02/2024 biopsy perianal mass TOTAL KNEE REPLACEMENT Right 2021 FAMILY HISTORY Problem Relation Age of Onset other (Anemia) Mother Anemia other (other) Mother other (pulmonary hypertention) Mother other (ESRD) Mother Hypertension Mother Stroke Mother Cataract Mother Asthma Mother Kidney failure Mother Heart Father Glaucoma Father Ischemic Heart Disease Father age 42 from [place] Hypertension Sister other (Other) Brother 18 MVA Angioedema Maternal Grandmother other (CHF) Maternal Grandfather Hypertension Paternal Grandmother Stroke Paternal Grandfather Depression Daughter other (PTSD) Daughter other (Anxiety) Daughter other (svt) Daughter Diabetes Daughter Social History Tobacco Use Smoking status: Former Current packs/day: 0.00 Average packs/day: 1 pack/day for 31.0 years (31.0 ttl pk-yrs) Types: Cigarettes Start date: 01/02/1984 Quit date: 01/01/2015 Years since quittin.7 Smokeless tobacco: Never Tobacco comments: ETS: Father in childhood home. Active smoker in current home. Vaping Use Vaping status: Never Used Substance Use Topics Alcohol use: No Drug use: Never COMPLETE REVIEW OF SYSTEMS: GENERAL: feeling well without fatigue, no recent change in weight HEENT: denies MATHEW, change in hearing or vision, no other ENT complaints NECK: denies swelling or pain in neck RESPIRATORY: former smoker quitting in 2014 and h/o COPD and asthma. chronic cough and shortness ofbreath with moderate exertion. CARDIOVASCULAR: no chest pain, no palpitations GI: chronic nausea and diarrhea. h/o GI bleeding and h/o Barretts' esophagus : urination is normal MUSCULOSKELETAL: h/o RA. SKIN: no rash HEMATOLOGY/LYMPHOLOGY: h/o anemia and on iron sucrose. NEURO: no numbness or paresthesias and no weakness of the extremities PHYSICAL EXAM: VS: BP 122/80 Pulse 86 Temp (!) 35.9 C (96.7 F) (Temporal) Resp 17 Wt 87.1 kg (192 lb) SpO2 96% BMI 33.60 kg/m KPS: 90 General Appearance: Alert and oriented. No acute distress. HEENT: NCAT. Sclera anicteric. EOMI. Neck: Normal ROM. Chest: No respiratory distress. Musculoskeletal: Normal ROM in extremities. Neuro: Speech fluent. Gait normal. No focal deficits. Hematologic: No signs of active bleeding. Lymph nodes: No palpable lymphadenopathy in the bilateral inguinal region. RADIOLOGY/LABORATORY DATA: see HPI ASSESSMENT AND PLAN: 64 year old woman with clinical stage T2/T3 moderately differentiated invasivesquamous cell carcinoma of the anus. It's p16 positive. She has Crohn's disease and has increased risks of radiation treatment complications of the bowel/anal region. I discussed with her about definitive chemoradiation treatment vs upfront surgery. She doesn't want to have colostomy and wishes to pursue chemoradiation treatment. She understands that there are risks of anal sphincter dysfunction and perianal radiation treatment complications and thereis chance that she may eventually need to have colostomy even with chemoradiation treatment. I explained the rationale, benefits, alternative management options and potential complications of radiation treatment to the patient and she understands and agrees to proceed. It was explained and understood that other personnel such as radiation therapists, agriculture professor, and physicists will partici pinon in planning and delivery of radiation treatment. Permanent tattoo jimenez will be placed to aid with positioning for daily treatment and the patient consented. Patient will have a simulation procedure after she completes staging CT chest and MRI pelvis . Thank you very much for allowing us to participate in her care. Signed by: Sidney Joya MD cc: Julio Arriaga [id number] [place] [address] Josh Bennett [address] [facility] [id number] documented in this encounterCleveland Clinic [facility]02-20-2025 NoteLake[facility]02-19-2025 Telephone encounter Note* Telephone Encounter - Jordyn Fernandez - 09/16/2024 1:08 PM EST Patient called and rescheduled CT and MRI to 09/23 due to transportation. [facility] Work Phone: 1(767) 409-656702-19-2025 Miscellaneous Notes* Telephone Encounter - Jordyn Fernandez - 09/16/2024 1:08 PM EST Patient called and rescheduled CT and MRI to 09/23 due to transportation. * Telephone Encounter - Nikkie Walter LPN - 09/16/2024 10:32 AM EST PSS- I spoke with Shirley- please put this patient on her scheduled at 11:30 in vascular lab. DONE Thank you. Nikkie Walter LPN * Telephone Encounter - Jordyn Fernandez - 09/16/2024 10:28 AM EST [facility] called stating that order for venous doppler needs an electronic signature. She states order came thru, but cut off at signature. Patient called right after stating the same and [facility]. * Telephone Encounter - Josh Bennett DO - 09/16/2024 10:10 AM EST Thank you orders filed. Josh Bennett DO * Telephone Encounter - Nikkie Walter LPN - 09/16/2024 8:[address] Bennett: Cancel PET scan. STAT MRI pelvis and STAT CT chest. DONE Dr. Bennett- please file orders. PSS- please contact patient to schedule. Nikkie Walter LPN previous AVS- Labs tomorrow.-scheduled STAT US right leg here or [facility].-FAXED TO [facility] PET scan MORAIMA. cancel- per Dr. Bennett. Separate te sent Referral to gynecology upstairs. done Referral to Dr. Joya this week if possible.-SCHEDULED CHEMO ED- Patient said to schedule the rest and she will see it on mychart documented in this encounterCleveland Clinic [facility]02-19-2025 Telephone encounter Note * Telephone Encounter - Rosio Buck LPN - 09/16/2024 11:18 AM EST Patient sent a [employer] message requesting the following refill. The original prescription was discontinued on 09/16/2024 by Josh Bennett DO. Renewing this prescription may not be appropriate. Requested Prescriptions Pending Prescriptions Disp Refills cholecalciferol, Vitamin D3, (VITAMIN D3) 1,250 mcg (50,000 unit) cap capsule 90 capsule 1 Sig: Take 1 capsule by mouth every other week. Patient last appointment: 05/15/2024 Next Appointment: 09/29/2024 Patient Phone numbers: [phone] (home) Request is for script(s) to be escript to pharmacy. [facility] [address] [place] [address] [phone] - [address] [place] [address] Rosio Buck LPN [facility]02-19-2025 Miscellaneous Notes* Telephone Encounter - Rosio Buck LPN - 09/16/2024 11:18 AM EST Patient sent a [employer] message requesting the following refill. The original prescription was discontinued on 09/16/2024 by Josh Bennett DO. Renewing this prescription may not be appropriate. Requested Prescriptions Pending Prescriptions Disp Refills cholecalciferol, Vitamin D3, (VITAMIN D3) 1,250 mcg (50,000 unit) cap capsule 90 capsule 1 Sig: Take 1 capsule by mouth every other week. Patient last appointment: 05/15/2024 Next Appointment: 09/29/2024 Patient Phone numbers: [phone] (home) Request is for script(s) to be escript to pharmacy. [facility] [place], [place] [id number] - [address] [phone] Rosio Buck LPN documented in this encounterC[facility]02-19-[facility]25 Telephone encounter Note * Telephone Encounter - Nikkie Walter LPN - 09/16/2024 10:32 AM EST PSS- I spoke with Shirley- please put this patient on her scheduled at 11:30 in vascular lab. DONE Thank you. Nikkie Walter LPN [facility]02-19-2025 Telephone encounter Note* Telephone Encounter - Jordyn Fernandez - 09/16/2024 10:28 AM EST [facility] called stating that order for venous doppler needs an electronic signature. She states order came thru, but cut off at signature. Patient called right after stating the same and was informed that they are possibly scheduling intoMarch and is asking if that is ok. [facility]02-19-2025 Telephone encounter Note* Telephone Encounter - Josh Bennett DO - 09/16/2024 10:10 AM EST Thank you orders filed. Josh Bennett DO [facility]02-19-2025 Telephone encounter Note* Telephone Encounter - Nikkie Walter LPN - 09/16/2024 8:[address] Bennett: Cancel PET scan. STAT MRI pelvis and STAT CT chest. DONE Dr. Bennett- please file orders. PSS- please contact patient to schedule. Nikkie Walter LPN previous AVS- Labs tomorrow.-scheduled STAT US right leg here or [facility].-FAXED TO [facility] PET scan MORAIMA. cancel- per Dr. Bennett. Separate te sent Referral to gynecology upstairs. done Referral to Dr. Joya this week if possible.-SCHEDULED CHEMO ED- Patient said to schedule the rest and she will see it on mychart [facility]02-18-2025 Telephone encounter Note* Telephone Encounter - Janie Rice - 09/15/2024 5:00 PM EST Labs tomorrow.-scheduled STAT US right leg here or [facility].-FAXED TO [facility] PET scan MORAIMA. cancel- per Dr. Bennett. Separate te sent Referral to gynecology upstairs. done Referral to Dr. Joya this week if possible.-SCHEDULED CHEMO ED- DONE Patient said to schedule the rest and she will see it on [employer] Janie Rice [facility]02-18-2025 Miscellaneous Notes* Telephone Encounter - Janie Rice - 09/15/2024 5:00 PM EST Labs tomorrow.-scheduled STAT US right leg here or [facility].-FAXED TO [facility] PET scan MORAIMA. cancel- per Dr. Bennett. Separate te sent Referral to gynecology upstairs. done Referral to Dr. Joya this week if possible.-SCHEDULED CHEMO ED- DONE Patient said to schedule the rest and she will see it on [employer] Janie Rice documented in this encounterCleveland Clinic [facility]02-18-[facility]25 History of Present illness Narrative* Josh Bennett DO - 09/15/2024 3:00 PM EST HPI: The patient is a 64-year-old female with a past medical history as outlined below. Initial consultation: Has h/o GI bleed. HH repair . Vanessa fundoplication. 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 Sees Dr. Pitts. EGD earlier this year for reflux. Esophageal dilation. B. esophagus as well. Still had hiatal hernia. Orencia doesn't help this. Diagnosed with Crohn's last year. Colonoscopy 10/2022. Congested mucosa in the ascending colon, hepatic flexure and descending colon. Has history of pancreatic insufficiency. Previous capsule endoscopy in 2018. Tired all the time. Diagnosed with RA in 2011. On Orencia. Helps hands. Arava. Can't take oral iron. They make me so sick. They won't even stay down. Has blood on toilet tissue when wipes. Attributed to Crohn's. She had IV iron here in the past. Referred for new diagnosis of squamous cell carcinoma of the anus. Interim history: Presented to the ED at [facility] on 09/[facility]2024 with complaint of perianal pain that had been going on for about a week. A CT scan of the abdomen pelvis was obtained and it demonstrated in the right perineum with thick walled 5.4 x 1.6 cm fluid collection with adjacent fat stranding most compatible with an abscess. No other abnormalities. Other than postsurgical changes of Vanessa fundoplication. She was taken to the OR. Once under general anesthesia, careful exam demonstrated what appeared to be a perianal mass. It extended jail external to the anal verge and another 2 to 3 cm beyond the anal verge towards the rectum. It was hard. Highly suspicious for malignancy. The mass was incised and bloody fluid return. No pus was observed in the cavity. The piece of tissue was excised for pathology. The area was cauterized and Gelfoam packing was inserted. Pathology: Perianal mass, biopsy: Focal area of moderately differentiated invasive squamous cell carcinoma. Extensive squamous cell carcinoma in situ. See comment. COMMENT Immunohistochemistry ([id number]) for surrogate HPV marker (p16) will be performed, and results will be reported separately. P16 (E6H4) positive, block staining Ki-67 (30-9) positive, high She has a history of pancreatic insufficiency and uses PEP. Also has a history of Crohn's disease and is on budesonide. Continues to have about 1-2 watery bowel movements a day. She has not observed any blood in her stools. She describes her appetite as being fair. She has a continual feeling of nausea. She has had esophageal strictures and has undergone EGD with dilation in the past. Most recent colonoscopy was 11/06/2022. At that time the perianal and digital rectal exams were noted normal. There were a few small mouth diverticula observed in the rectosigmoid colon as well as sigmoid colon. There was an area of mildly congested mucosa in the descending colon, right flexure and in the ascending colon. Biopsies were obtained. No polyps. Pathology demonstrated fragments of smallintestinal mucosa from the terminal ileum and fragments of colonic mucosa with no pathologic diagnosis on random colon biopsies. No vaginal discharge or bleeding. Has not had Pap test in quite some time. Has not been sexually active in quite genie time. Describes a tender sensation in the right groin into the right mons pubis. PAST MEDICAL HISTORY Diagnosis Date Asthma Homer lesion, acute 01/30/2019 Carotid artery stenosis bilateral- US in [facility] COPD (chronic obstructive pulmonary disease) (HCC) Crohn disease (HCC) Depression Diverticulosis Fibromyalgia GERD (gastroesophageal reflux disease) GI bleed 02/2019 Hiatal hernia Repaired 05/07/19 Hyperlipidemia Hypertension Insomnia Iron deficiency anemia Iron deficiency anemia Osteoarthritis Osteoporosis Piriformis syndrome PVC's (premature ventricular contractions) Rheumatoid arthritis (HCC) Sjogren's disease (HCC) Vitamin D deficiency PAST SURGICAL HISTORY Procedure Laterality Date ARTHRP KNE CONDYLE&PLATU MEDIAL&LAT COMPARTMENTS 2009 Total left knee surgery COLONOSCOPY FLX DX W/COLLJ SPEC WHEN PFRMD 04/11/2015 diverticulosis, no specimens collected Dr. Tapia COLONOSCOPY FLX DX W/COLLJ SPEC WHEN PFRMD 09/23/[address] Tapia EGD 01/30/2019 large hiatal hernia with Homer erosions, likely source of GI bleed Dr. Rudolph EGD 09/15/2007 patulous GE junction, nonobstructive Schatzki's ring, bile reflux of stomach, hiatal hernia, neg H pylori EGD EUS N/A 07/07/2020 3 cm sliding hiatal hernia, no obst Schatzki's ring, mild duodenitis, mild/moderate gastritis EGD TRANSORAL BIOPSY SINGLE/MULTIPLE 02/17/2020 retained contents in stomach, bxs negative Dr. Pat ESOPHAGOGASTRODUODENOSCOPY TRANSORAL DIAGNOSTIC 05/07/2016 sliding hiatal hernia, no source of GI bleed Dr. Laureano ESOPHAGOGASTRODUODENOSCOPY TRANSORAL DIAGNOSTIC 09/23/2017 normal, bxs negative Dr. Tapia GI TRC IMG INTRALUMINAL ESOPHAGUS-ILEUM W/I&R 10/04/2017 Normal smallbowel Capsule endosocpy HIATAL HERNIA REPAIR HX 04/2019 LAPS RPR PARAESPHGL HRNA INCL FUNDPLSTY W/MESH 05/07/2019 Dr. Pat MRI BRAIN W/O CONTRAST 07/20/2011 PARTIAL HIP REPLACEMENT Left 2020 PAST SURGICAL HISTORY OF 1983, 1986 2 C Sections PAST SURGICAL HISTORY OF 1982 Left shoulder, has screw in shoulder TOTAL KNEE REPLACEMENT Right 2021 leflunomide (ARAVA) 20 mg tablet Take 1 tablet by mouth once daily Fluticasone Propionate (CUTIVATE) 0.05 % cream Apply to affected area two times a day. meclizine (ANTIVERT) 25 mg tab Take 25 mg by mouth three times a day as needed (for dizziness). cholecalciferol, Vitamin D3, (VITAMIN D3) 1,250 mcg (50,000 unit) cap capsule Take 1 capsule by mouth every other week. atorvastatin (LIPITOR) 80 mg tablet Take 80 mg by mouth once daily. kbwfhi-erkbgqkx-ogoltvo (CREON 36) 36,000-114,000- 180,000 unit delayed release capsule Take by mouth with meals and at bedtime. With snacks also furosemide (LASIX) 20 mg tablet Take 20 mg by mouth once daily. budesonide, enteric coated (ENTOCORT EC) 3 mg 24 hr capsule Take 2 capsules by mouth every afternoon. pantoprazole DR (PROTONIX) 40 mg tablet Take 40 mg by mouth once daily. dicyclomine (BENTYL) 20 mg tablet Take 20 mg by mouth twice daily. VITAMIN B-12 1,000 mcg tab DISSOLVE 1 TABLET BY MOUTH ONCE DAILY amLODIPine (NORVASC) 5 mg tablet Take 7.5 mg by mouth once daily. Takes 7.5 mg each day promethazine (PHENERGAN) 25 mg tablet Take 1 tablet by mouth every 6 hours as needed for nausea/vomiting. clopidogrel (PLAVIX) 75 mg tablet Take 75 mg by mouth once daily. FLUoxetine (PROZAC) 20 mg capsule Take 3 capsules by mouth once daily. abatacept/maltose (ORENCIA, WITH MALTOSE, INTRAVENOUS) Inject intravenously. albuterol HFA (VENTOLIN HFA) 90 mcg/actuation inhaler Inhale 2 Puffs as instructed every 4 hours asneeded for wheezing/shortness of breath. (Patient taking differently: Inhale 2 Puffs as instructed every 4 hours as needed for wheezing/shortness of breath. As needed) buPROPion XL (WELLBUTRIN XL) 150 mg 24 hr tablet Take 1 tablet by mouth once daily. mometasone (NASONEX) 50 mcg/actuation nasal spray Use 2 Sprays in the nose once daily. Rinse mouth after use. albuterol (PROVENTIL) 2.5 mg /3 mL (0.083 %) nebulizer solution Use 3 mL via nebulizer every 4 hours as needed for wheezing/shortness of breath. Use over 5-15minutes. acetaminophen (TYLENOL) 325 mg tablet Take by mouth every 6 hours as needed. albuterol (PROVENTIL) 2.5 mg /3 mL (0.083 %) nebulizer solution Use 3 mL via nebulizer every 6 hours as needed for Wheezing/Shortness of Breath. >Nebulizer For Home Nebulizer for home use. Diagnosis: Moderate persistent asthma with acute exacerbation and pneumonia ALLERGIES Allergen Reactions Cymbalta [Duloxetin* Intolerance Headaches Nsaids (Non-Steroid* Anaphylaxis Had anaphylactic reaction to Aleve Vibramycin [Doxycyc* Anaphylaxis Dilaudid [Hydromorp* Vomiting Morphine Vomiting Horse/Equine Contai* Swelling Vicodin [Hydrocodon* Vomiting Can take if given antiemetic at same time Social History Tobacco Use Smoking status: Former Current packs/day: 0.00 Average packs/day: 1 pack/day for 31.0 years (31.0 ttl pk-yrs) Types: Cigarettes Start date: 01/02/1984 Quit date: 01/01/2015 Years since quittin.7 Smokeless tobacco: Never Tobacco comments: ETS: Father in childhood home. Active smoker in current home. Vaping Use Vaping status: Never Used Substance Use Topics Alcohol use: No Drug use: Never FAMILY HISTORY Problem Relation Age of Onset Hypertension Mother Stroke Mother Cataract Mother Asthma Mother other (ESRD) Mother Kidney failure Mother other (pulmonary hypertention) Mother Heart Father Glaucoma Father Ischemic Heart Disease Father age 42 from [place] Hypertension Sister other (Other) Brother 18 MVA Angioedema Maternal Grandmother other (CHF) Maternal Grandfather Hypertension Paternal Grandmother Stroke Paternal Grandfather Depression Daughter other (PTSD) Daughter other (Anxiety) Daughter other (svt) Daughter Diabetes Daughter REVIEW OF SYSTEMS: Constitutional: No episodes of fever and night sweats. Not significantly fatigued. Normal appetite. Neuro: No MATHEW, vertigo, dizziness and imbalance. No symptoms of neuropathy. HEENT: No recent change in voice, vision or hearing. Resp: No cough, wheeze and hemoptysis. No shortness of breath at rest. No TY. CVS: No exertional chest pain, PND, orthopnea and LE edema. GI: No altered taste or symptoms of stomatitis. No dysphagia and odynophagia. : No dysuria or gross hematuria. Endo: No hot flashes. No polyuria and polydipsia. No heat and cold intolerance. Derm: No current rash. No history of jaundice or diffuse pruritis. Heme: No unusual bleeding and unexplained bruising. Psych: Normal mood. Participation of a fellow, resident, medical student, or advanced practice provider student in performing the sensitive examination was discussed with the patient or authorized sales representative publications. The patient or authorized sales representative publications has agreed to proceed with the sensitive examination. (Sensitive examination includes inspection and/or palpation of the breasts, pelvis, prostate and anorectal regions) Nikkie Walter LPN chaperoned. PHYSICAL EXAM: Vitals: Blood pressure 149/82, pulse 82, temperature 36.8 C (98.2 F), temperature source Temporal, height 161 cm (5' 3.39), weight 87.8 kg (193 lb 8 oz), SpO2 95%. Well-appearing and in no acute distress. EYES: Sclerae are anicteric bilaterally. CARDIOVASCULAR: Rhythm is regular. ABDOMEN: The abdomen is nondistended. No tenderness. Examination of the perianal area demonstrates a firm mass mildly protruding from the anus on the right side. No bleeding observed. There is no inguinal adenopathy but there is tenderness in the medial right inguinal area extending along the anterior medial right thigh. No overlying erythema. SKIN: No jaundice. 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 -Personally reviewed CT images done at the time of her ED presentation. Because of the cavitary blood-filled nature of the lesion on presentation, hard to determine local extent. Therefore discussed MRI to further characterize. No exam evidence of inguinal adenopathy. -Discussed need for chest imaging to complete staging. -Potential PET scan if MRI and CT scan suggest need. -I talked with her and her daughter about the management of squamous cell carcinoma of the anus. Recommended 5-fluorouracil with mitomycin C along with concurrent radiation. -I discussed the rationale, logistics, potential risks (including but not limited to fatigue, exacerbation of diarrhea, cytopenias, TTP, infections, alopecia, stomatitis, nausea and vomiting, acute radiation proctitis and dermatitis and the small potential for as a consequence of severe toxici ty/complications of therapy), benefits and alternatives, as well as the personnel involved in the administration of 5-fluorouracil and mitomycin with concurrent radiation. I answered her questions indetail and she verbalized understanding and agreed with the recommended therapy. Please see the electronic consent document for details of doses and schedule. -Difficult veins for lab work. -She has been on Plavix for quite some time for history of carotid artery disease. I asked her to get in touch with her transit specialist to see if she can hold Plavix for the time being. Plan: -Labs today--CBC, chemistry panel, hepatitis renal panel, HIV test and DPYD genotype testing. -MRI to better evaluate local extent of disease and more accurately stage. -CT chest with IV contrast. -Hold abatacept. -Radiation oncology referral. -Gynecology referral for cervical cancer screening. -She will need PICC line which we will try to maintain throughout her treatment course. (M79.604) Right leg pain Assessment: -No exam evidence of faction. Given distribution of pain, need to rule out DVT. Plan: -Duplex ultrasound of the right leg tomorrow. -Advised she go to the ER tonight if she develops worsening pain or any difficulty breathing or chest pain. (D50.0) Iron 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 blood loss Assessment: -Multifactorial iron deficiency anemia. History of Homer's lesion, Crohn's disease and bleeding from recently diagnosed tumor. -On a proton pump inhibitor which can impair oral absorption. Iron Plan: -Recheck CBC today. -Iron sucrose as indicated. Portions of this documentation were copied and pasted from my previous office visit note dated 06/15/2024 in order to provide a cohesive continuity of the history. The note has been reviewed and edited and updated as necessary. I spent a total of 70 minutes on the date of the service which included preparing to see the patient, [id number] patient care, completing clinical documentation, obtaining and/or reviewing separately obtained history, performing a medically appropriate examination, counseling and educating the pat ient/family/caregiver, ordering medications, tests, or procedures, and communicating results to thepatient/family/caregiver. 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 Scheduled with Oncology 09/15/2024. Surgeon that biopsied told her it would likely be treated with radiation or chemo. Patient asking if she will be able to continue Orencia infusion. Last infusion 07/02/2024. Patient states she tested positive for Covid on 09/02/2024. Patient is resting and hydrating. Patient will reach out to her PCP. 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 Scheduled with Oncology 09/15/2024. Surgeon that biopsied told her it would likely be treated with radiation or chemo. Patient asking if she will be able to continue Orencia infusion. Last infusion 07/02/2024. Patient states she tested positive for Covid on 09/02/2024. Patient is resting and hydrating. Patient will reach out to her PCP. Rosio Buck LPN [facility]02-12-2025 Telephone encounter Note* Telephone Encounter - Mary Vicente LPN - 09/09/2024 7:46 AM EST Pharmacy faxed requesting the following refill. Requested Prescriptions Pending Prescriptions Disp Refills leflunomide (ARAVA) 20 mg tablet [Pharmacy Med Name: LEFLUNOMIDE 20MG TAB] 90 tablet 0 Sig: Take 1 tablet by mouth once daily Patient last appointment: 05/15/2024 Next Appointment: 09/18/2024 Patient Phone numbers: [phone] (home) Request is for script(s) to be escript to pharmacy. Mary Vicente LPN [facility]02-12-2025 Miscellaneous Notes* Telephone Encounter - Mary Vicente LPN - 09/09/2024 7:46 AM EST Pharmacy faxed requesting the following refill. Requested Prescriptions Pending Prescriptions Disp Refills leflunomide (ARAVA) 20 mg tablet [Pharmacy Med Name: LEFLUNOMIDE 20MG TAB] 90 tablet 0 Sig: Take 1 tablet by mouth once daily Patient last appointment: 05/15/2024 Next Appointment: 09/18/2024 Patient Phone numbers: [phone] (home) Request is for script(s) to be escript to pharmacy. Mary Vicente LPN documented in this encounterC[facility] Clinic [facility]02-10-2025 Telephone encounter Note * Telephone Encounter - Pito Nayaky - 09/07/2024 3:31 PM EST New patient information given to the pss staff from nursing to schedule patient as a est complex with for new diagnosis. I called and spoke to Vidya and scheduled her as she requested for 09/15/24 @ 3:00pm, she confirmed this date and time Leilani Lu [facility]02-10-2025 Miscellaneous Notes* Telephone Encounter - Leilani Nayak - 09/07/2024 3:31 PM EST New patient information given to the pss staff from nursing to schedule patient as a est complex with for new diagnosis. I called and spoke to Vidya and scheduled her as she requested for 09/15/24 @ 3:00pm, she confirmed this date and time Leilani Lu * Telephone Encounter - Leilani Nayak - 09/07/2024 9:16 AM EST Patient called in stating that she needs to see , Per at [facility] because she had a mass in her perineum area removed that was sent for pathology and came back thatit is Squamous cell carcinoma. Per patient's appointment desk she was scheduled to have lab work and then see Judi back in July, but had canceled those appointments. I told the patient ournursing staff would review and then we would call her back to schedule, she stated understanding ofthis. Please advise on scheduling Leilani Lu documented in this encounterCleveland Clinic [facility]02-10-2025 Telephone encounter Note * Telephone Encounter - Leilani Nayak - 09/07/2024 9:16 AM EST Patient called in stating that she needs to see , Per at [facility] because she had a mass in her perineum area removed that was sent for pathology and came back thatit is Squamous cell carcinoma. Per patient's appointment desk she was scheduled to have lab work and then see Judi back in July, but had canceled those appointments. I told the patient ournursing staff would review and then we would call her back to schedule, she stated understanding ofthis. Please advise on scheduling Leilani Lu [facility]02-06-2025 [facility] Medical Records Department [address] [place] [address] Discharge Summary 09/03/24 1552 MR#: [id number] Acct: [id number] Name: MARIMAR WANG Rep #: [id number] : 1960 64 From: Kenya Garcia MD PCP: [facility] Arriola Status:ADM AMOR [facility] Date of Admission: 09/02/24 Date of Discharge: 09/03/24 Primary Care Physician: [facility] Arriola Reason For Visit: ABSCESS ON RECTUM Diagnosis Discharge Diagnosis (1) Abscess, perirectal: Status: Acute Code(s): K61.1 - Rectal abscess (2) Mass of anus: Status: Acute Code(s): K62.89 - Other specified diseases of anus and rectum Plan The patient is a 64-year-old female who presented yesterday to the emergency department with perirectal pain. CT scan showed a fluid collection thought to be consistent with abscess. Rectal exam under anesthesia with drainage of abscess was recommended and performed. At the time of surgery there was concern for a right sided mass. Biopsy was obtained and tissue sent to pathology. Pain control seems to be adequate. Will await biopsy results. Continue IV antibiotics for now. Will likely remove packing later today Medications at Discharge Home Medications albuterol sulfate 90 mcg/actuation aerosol inhaler 2 puff inhalation Q4H PRN PRN Shortness Of Breath 03/13/15 clopidogrel 75 mg tablet 75 mg PO QHS BLOOD THINNER 03/13/15 fluoxetine 20 mg capsule 60 mg PO QHS MENTAL HEALTH 12/13/15 peg [id number]-ilpzxcbb 1 %-0.2 %-0.2 % eye drops (Dry Eye Relief) 1 drp OP 4X/DAY DRY EYES 11/13/17 leflunomide 20 mg tablet (Arava) 20 mg PO QHS RA 03/22/18 amlodipine 5 mg tablet 7.5 mg PO QHS BP 08/15/22 mometasone 50 mcg/actuation nasal spray 2 spray intranasal .QAM ALLERGIES 08/15/22 ergocalciferol (vitamin D2) 1,250 mcg (50,000 unit) capsule (Vitamin D2) 1,250 mcg PO .EVERY OTHER WEEK SUPPELEMNT 11/05/22 mecobalamin (vitamin B12) 1,000 mcg disintegrating tablet,sublingual 1,000 mcg sublingual QHS SUPPLEMENT 12/06/22 abatacept 50 mg/0.4 mL subcutaneous syringe (Orencia) 50 mg subcut QMONTH RA 12/17/22 polyethylene glycol 3350 17 gram/dose oral powder (Miralax) 4 g PO PRN PRN Constipation 01/09/23 odxxmb-ybnqcpde-rsvpwnu 36,000-114,000-180,000 unit capsule,delay rel (Creon) See Rx Instructions PO .COMPLEX #300 caps 09/25/23 acetaminophen 500 mg tablet 1,000 mg PO Q6H PRN fever or pain 11/15/23 atorvastatin 80 mg tablet 80 mg PO QHS 11/15/23 hydrocortisone 2.5 % topical cream with perineal applicator 1 applic VA BID PRN Crohn's disease #30 grams 11/29/23 meclizine 25 mg tablet 25 mg PO DAILY PRN PRN dizziness 03/17/24 budesonide 3 mg capsule,delayed,extended release 6 mg (2 x 3 mg) PO DAILY #60 caps 04/09/24 pantoprazole 40 mg tablet,delayed release 40 mg PO DAILY #90 TABLETS 05/01/24 promethazine 25 mg tablet 25 mg PO Q6H PRN PRN Nausea #60 tabs 05/11/24 dicyclomine 10 mg capsule 10 mg PO TID PRN for abdominal pain #90 caps 08/10/24 alprazolam 1 mg tablet 1 mg PO TID 30 days #90 tabs 08/31/24 bupropion HCl (smoking deter) 150 mg tablet,12 hr sustained-release(smoking deterrent) 150 mg PO QHS 09/02/24 methylprednisolone 4 mg tablets in a dose pack PO UD 09/02/24 tramadol 50 mg tablet 50 mg PO Q6H PRN PRN pain 09/02/24 oxycodone-acetaminophen 5 mg-325 mg tablet (Percocet) 1 tab PO Q8H PRN pain 3 days #14 tabs 09/03/24 Hospital Course Operations - (Incision and drainage of a right perirectal abscess as well as biopsy of a anal mass) Summary of Care Provided Minutes Spent on Discharge: 15 Hospital Course: The patient is a 64-year-old female who presented to the emergency department yesterday with complaints of perianal pain for the past week. CT scan was performed and showed what appeared to be a fluid collection in the right perianal area. This was thought to be an abscess or fluid collection. Surgery was consulted. The patient was admitted and plans were made to bring the patient to the operating room for rectal exam under anesthesia with I D of perirectal abscess. At the time of surgery it was felt that she had a right sided mass right at the anal verge. Biopsies were performed. Pathology is still pending. Today she is doing well. Pain is well-controlled. She would like to go home. Pathology is still pending and I will plan on contacting her once results become available. Physical Exam Const alert, oriented x3 and no apparent distress Weight / BMI Weight Weight: 209 lb 10.554 oz Body Mass Index (BMI) 37.1 ABG / Lab / Microbiology Data 09/03/24 06:13 09/03/24 06:13 Laboratory: Laboratory Results - last 24 hr 09/03/24 06:13: WBC 8.1, RBC 3.76 L, Hgb 9.6 L, Hct 31.2 L, MCV 83.0, MCH 25.5 L, MCHC 30.8 L, RDW Std Deviation 52.7 H, RDW Coeff of Pepe 17.3 H, Plt Count 219, MPV 11.4, Immature Gran % (Auto) 0.500, Neut % (Auto) 74 (more content not included)...[facility] 09-02-2024 Evaluation note* Diagnosis Onset Date Resolution Status Admit Date Mass of anus acute August 2:24pm Perirectal abscess resolved Februa ry 2024 2:24pm 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 acute September 15 025 1:12pm [facility] Work Phone: 1(123) 563-841002-05-2025 [facility] Medical Records Department [address] [place] [address] History Physical Exam 09/02/24 1558 MR#: [id number] Acct: [id number] Name: MARIMAR WANG Rep #: [id number] : 1960 64 From: Kenya Garcia MD PCP: Julio Arriaga, STATISTICAL MACHINE MECHANIC-C Status:[facility] Location: [place] [address] HPI - General General Date of Admission: 09/02/24 Date of Service: 09/02/24 Chief Complaint: Rectal pain HPI Narrative MARIMAR WANG, is a 64 F who presents to the [place] emergency department with rectal pain for the past week along with upper respiratory infection symptoms. Patient has multiple medical problems including pancreatic insufficiency, recent diagnosis of Crohn's disease, fibromyalgia and rheumatoid arthritis. She was seen in the emergency department and clinically was felt that she had a perirectal abscess. CT scan was performed and confirmed a fairly sizable right sided perirectal abscess. She is also had cough for several days along with chills. She was found to be COVID- positive as well. 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 Surgery consult was obtained and plans were made to admit the patient and perform an I D. [facility] Medical History (Updated 09/02/24 @ 16:[address] Kenya Garcia MD) Perirectal abscess History of Crohn's disease Psoriatic arthritis Psoriasis Internal derangement of right knee Wears glasses Post-menopausal Depression Anxiety Ambulates with cane Injury of back Difficulty swallowing History of IBS History of hiatal hernia Former smoker Shortness of breath on exertion Chronic cough History of echocardiogram History of stress test Hypertension Cardiology follow-up encounter History of CHF (congestive heart failure) History of irregular heartbeat Acute pharyngitis, unspecified URI (upper respiratory infection) Contact with or suspected exposure to other viral communicable disease History of partial replacement of left hip joint using bipolar prosthesis Vitamin D deficiency HLD (hyperlipidemia) Insomnia Dry eye Regular astigmatism, bilateral PVCs (premature ventricular contractions) Coronary artery stenosis Chronic diastolic CHF (congestive heart failure) Iron malabsorption Osteoarthritis Lumbar spondylosis Osteoporosis Congenital cataract Intermittent palpitations Nausea TIA (transient ischemic attack) Acute maxillary sinusitis, unspecified Acute ethmoidal sinusitis, unspecified Acute frontal sinusitis, unspecified COPD exacerbation Foreign body in conjunctival sac, left eye, initial encounter Acute bacterial conjunctivitis Influenza A Acute bronchitis Back pain Limb weakness Asthma Anemia Arthritis Home Medications ???Medication ???Instructions ???Recorded ???Last Taken ???Type albuterol sulfate 90 mcg/actuation 2 puff inhalation Q4H PRN PRN Unknown History aerosol inhaler Shortness Of Breath clopidogrel 75 mg tablet 75 mg PO QHS BLOOD THINNER 5 09/01/24 History fluoxetine 20 mg capsule 60 mg PO QHS MENTAL HEALTH 6 09/01/24 History peg 535-flxvidfoksut-ingrhchy 1 1 drp OP 4X/DAY DRY EYES 11/13/17 03/19/24 History %-0.2 %-0.2 % eye drops (Dry Eye Relief) leflunomide 20 mg tablet (Arava) 20 mg PO QHS RA 03/22/18 09/01/24 History amlodipine 5 mg tablet 7.5 mg PO QHS BP 08/15/22 09/01/24 History mometasone 50 mcg/actuation nasal 2 spray intranasal .QAM ALLERGIES 08/15/22 09/01/24 History spray ergocalciferol (vitamin D2) 1,250 1,250 mcg PO .EVERY OTHER WEEK 08/26/24 History mcg (50,000 unit) capsule (Vitamin SUPPELEMNT D2) mecobalamin (vitamin B12) 1,000 1,000 mcg sublingual QHS SUPPLEMEN T 12/06/22 09/01/24 History mcg disintegrating tablet,sublingual abatacept 50 mg/0.4 mL 50 mg subcut QMONTH RA 12/17/22 History subcutaneous syringe (Orencia) polyethylene glycol 3350 17 4 g PO PRN PRN Constipation Unknown History gram/dose oral powder (Miralax) phyvca-voxvaoel-fwykaxl See Rx Instructions PO .COMPLEX 02 /28/24 02/04/25 Rx 36,000-114,000-180,000 unit #300 caps capsule,delay rel (Creon) acetaminophen 500 mg tablet 1,000 mg PO Q6H PRN fever or pain 11/15/23 09/01/24 History atorvastatin 80 mg tablet 80 mg PO QHS 11/15/23 09/01/24 His tory hydrocortisone 2.5 % topical cream 1 applic VA BID PRN Crohn's 10/19 Unknown Rx with perineal applicator disease #30 grams meclizine 25 mg tablet 25 mg PO DAILY PRN PRN dizziness 0 03/17/24 Unknown History budesonide 3 mg 6 mg (2 x 3 mg) PO DAILY #60 caps 04/09/24 09/01/24 Rx capsule,delayed,extended release pantoprazole 40 mg tablet,delayed 40 mg PO DAILY #90 TABLETS 09/01/24 Rx release promethazine 25 mg tablet 25 mg PO Q6H PRN PRN Nausea #60 09/01/24 Rx tabs dicyclomine 10 mg capsul (more content not included)...[facility]02-05-2025 [facility] History of Present illness Narrative* Kimmy Dixon APRN.CNP - 09/02/2024 10:24 AM EST Patient came in with complaints of severe rectal pain. Patient says it is a 20 out of 10. Patient cannot even sit in the chair as she is so uncomfortable. Patient does appear to have a hemorrhoid back there but more concern for a possible abscess. Patient says she noticed some drainage. At this time patient is being referred to the emergency room due to the amount of pain that she is in. Patient agreeable wants to take her self. documented [facility] Evaluation note* Diagnosis Onset Date Resolution Status Admit Date Crohn disease acute July 1:44pm Difficulty swallowing acute Jul 1:44pm IBS (irritable bowel syndrome) acute August 27, 2024 1:44pm Pancreatic insufficiency acute August 27, 2024 1:44pm Diarrhea chronic August 27, 2024 1:44pm Mass of anus acute August 2:24pm Perirectal abscess resolved Februa 2024 2:24pm 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 acute September 15, 025 1:12pm [facility] Work Phone: 1(891) 862-802101-23-2025 History of Present illness Narrative* Jorge Alberto Vasquez RT(R) - 08/20/2024 9:30 AM EST Radiology Service Progress Note PATIENT NAME: Marimar Wang DATE OF SERVICE: August 20, 2024 TIME: 9:29 AM PATIENT IDENTITY VERIFICATION COMPLETED USING TWO (2) IDENTIFIERS: Name and Date of confirmedby patient verbally. FALL SCREENING: Has the patient had 2 falls in the last year or 1 fall with injury or currently using an Ambulatory Assistive Device (Walker, Cane, Wheelchair, Crutches, etc.)? No PATIENT GENDER DATA: Assigned male at PATIENT RELEVANT IMPLANT DATA REVIEWED: Not Applicable PATIENT PRESENTS WITH AN IMPLANTABLE OR ATTACHED PEDIATRIC SURGEON: No RADIOLOGY DEPARTMENT: Bone Density PERIPHERAL IV DATA: Not applicable SIGNED BY: RT Sandra(R) August 20, 2024 9:29 AM documented in this encounterC[facility]01-23-2025 NoteL[facility]01-[facility]25 Telephone encounter Note* Telephone Encounter - Jordyn Fernandez - 08/17/2024 4:13 PM EST Lab rescheduled as requested [facility] Work Phone: 1(844) 672-429501-20-2025 Miscellaneous Notes* Telephone Encounter - Jordyn Fernandez - 08/17/2024 4:13 PM EST Lab rescheduled as requested * Telephone Encounter - Kathya Rich LPN - 08/17/2024 2:13 PM EST Pt cannot make it into lab today. Please move her lab apt to after her bone density. Pt aware. Kathya Rich LPN documented in this encounterC[facility]01-20-2025 Telephone encounter Note * Telephone Encounter - Kathya Rich LPN - 08/17/2024 2:13 PM EST Pt cannot make it into lab today. Please move her lab apt to after her bone density. Pt aware. Kathya Rich LPN [facility]11-19-2024 Telephone encounter Note* Telephone Encounter - Lynn New LPN - 06/16/2024 5:01 PM EST Pt. Aware, first dose is Lynn New LPN [facility]11-19-2024 Miscellaneous Notes* Telephone Encounter - Lynn New LPN - 06/16/2024 5:01 PM EST Pt. Aware, first dose is Lynn New LPN * Telephone Encounter - Lynn New LPN - 06/16/2024 4:56 PM EST ----- Message from Josh Bennett DO sent at 06/16/2024 3:08 PM EST ----- Low iron confirmed. Okay to start iron sucrose. documented in this encounterC[facility]11-19-2024 Telephone encounter Note * Telephone Encounter - Lynn New LPN - 06/16/2024 4:56 PM EST ----- Message from Josh Bennett DO sent at 06/16/2024 3:08 PM EST ----- Low iron confirmed. Okay to start iron sucrose. [facility]11-[facility] Telephone encounter Note* Telephone Encounter - Lawnada Hunter - 06/16/2024 2:05 PM EST Pharmacist on duty spoke with PSS about an hour ago re: scheduling patient here for Orencia and Iron, that we could get the Orencia in time for if that worked for the patient and that the authorization/orders could be flipped to [place] and there shouldn't be an issue with the authorization. Patient was agreeable to having all treatments in [place]. Spoke with patient and she does want to have treatments here. Advised that her authorization for [place] is no longer open/available and that she will be treated in [place] as she has requested. Mando reschedule balance of iron infusions when she comes in for her treatment on 06/18. Lawanda Hunter [facility]11-19-2024 Miscellaneous Notes* Telephone Encounter - Lawanda Hunter - 06/16/2024 2:05 PM EST Pharmacist on duty spoke with PSS about an hour ago re: scheduling patient here for Orencia and Iron, that we could get the Orencia in time for if that worked for the patient and that the authorization/orders could be flipped to [place] and there shouldn't be an issue with the authorization. Patient was agreeable to having all treatments in [place]. Spoke with patient and she does want to have treatments here. Advised that her authorization for [facility] is no longer open/available and that she will be treated in [place] as she has requested. Patientwill reschedule balance of iron infusions when she comes in for her treatment on 06/18. Lawanda Hunter * Telephone Encounter - Jordyn Fernandez - 06/16/2024 1:27 PM EST Please review orders and advise. Providers office states that patient would start here in June. * Telephone Encounter - Rosio Buck LPN - 06/16/2024 12:25 PM EST Patient asking if she can have her Orencia infusions at [facility]. Patient does not drive in the snow and she will also be going there for iron infusions. Patient is going to contact the infusion center and see if they will be able to administer Orencia and call the office back. Rosio Buck LPN documented in this encounterC[facility]11-19-2024 Telephone encounter Note * Telephone Encounter - Jordyn Fernandez - 06/16/2024 1:27 PM EST Please review orders and advise. Providers office states that patient would start here in June. [facility] Work Phone: 1(946) 663-963511-19-2024 Telephone encounter Note* Telephone Encounter - Rosio Buck LPN - 06/16/2024 12:25 PM EST Patient asking if she can have her Orencia infusions at [facility]. Patient does not drive in the snow and she will also be going there for iron infusions. Patient is going to contact the infusion center and see if they will be able to administer Orencia and call the office back. Rosio Buck LPN [facility]11-18-2024 NoteL[facility]11-18-2024 History of Present illness Narrative* Josh Bennett, - 06/15/2024 1:49 PM EST Patient referred by Sarah Pearson PA-C for BOZENA. HPI: The patient is a 64-year-old female with a past medical history as outlined below. Has h/o GI bleed. HH repair . Vanessa fundoplication. 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 Sees Dr. Pitts. EGD earlier this year for reflux. Esophageal dilation. B. esophagus as well. Still had hiatal hernia. Orencia doesn't help this. Diagnosed with Crohn's last year. Colonoscopy 10/2022. Congested mucosa in the ascending colon, hepatic flexure and descending colon. Has history of pancreatic insufficiency. Previous capsule endoscopy in 2018. Tired all the time. Diagnosed with RA in 2011. On Orencia. Helps hands. Arava. Can't take oral iron. They make me so sick. They won't even stay down. Has blood on toilet tissue when wipes. Attributed to Crohn's. She had IV iron here in the past. PAST MEDICAL HISTORY Diagnosis Date Asthma Homer lesion, acute 01/30/2019 Carotid artery stenosis bilateral- US in [facility] COPD (chronic obstructive pulmonary disease) (HCC) Crohn disease (HCC) Depression Diverticulosis Fibromyalgia GERD (gastroesophageal reflux disease) GI bleed 02/2019 Hiatal hernia Repaired 05/07/19 Hyperlipidemia Hypertension Insomnia Iron deficiency anemia Iron deficiency anemia Osteoarthritis Osteoporosis Piriformis syndrome PVC's (premature ventricular contractions) Rheumatoid arthritis (HCC) Sjogren's disease (HCC) Vitamin D deficiency PAST SURGICAL HISTORY Procedure Laterality Date ARTHRP KNE CONDYLE&PLATU MEDIAL&LAT COMPARTMENTS 2009 Total left knee surgery COLONOSCOPY FLX DX W/COLLJ SPEC WHEN PFRMD 04/11/2015 diverticulosis, no specimens collected Dr. Tapia COLONOSCOPY FLX DX W/COLLJ SPEC WHEN PFRMD 09/23/[address] Tapia EGD 01/30/2019 large hiatal hernia with Homer erosions, likely source of GI bleed Dr. Rudolph EGD 09/15/2007 patulous GE junction, nonobstructive Schatzki's ring, bile reflux of stomach, hiatal hernia, neg H pylori EGD EUS N/A 07/07/2020 3 cm sliding hiatal hernia, no obst Schatzki's ring, mild duodenitis, mild/moderate gastritis EGD TRANSORAL BIOPSY SINGLE/MULTIPLE 02/17/2020 retained contents in stomach, bxs negative Dr. Pat ESOPHAGOGASTRODUODENOSCOPY TRANSORAL DIAGNOSTIC 05/07/2016 sliding hiatal hernia, no source of GI bleed Dr. Laureano ESOPHAGOGASTRODUODENOSCOPY TRANSORAL DIAGNOSTIC 09/23/2017 normal, bxs negative Dr. Tapia GI TRC IMG INTRALUMINAL ESOPHAGUS-ILEUM W/I&R 10/04/2017 Normal smallbowel Capsule endosocpy HIATAL HERNIA REPAIR HX 04/2019 LAPS RPR PARAESPHGL HRNA INCL FUNDPLSTY W/MESH 05/07/2019 Dr. Pat MRI BRAIN W/O CONTRAST 07/20/2011 PARTIAL HIP REPLACEMENT Left 2020 PAST SURGICAL HISTORY OF 1983, 1986 2 C Sections PAST SURGICAL HISTORY OF 1982 Left shoulder, has screw in shoulder TOTAL KNEE REPLACEMENT Right 2021 Fluticasone Propionate (CUTIVATE) 0.05 % cream Apply to affected area two times a day. meclizine (ANTIVERT) 25 mg tab Take 25 mg by mouth three times a day as needed (for dizziness). leflunomide (ARAVA) 20 mg tablet Take 1 tablet by mouth once daily. cholecalciferol, Vitamin D3, (VITAMIN D3) 1,250 mcg (50,000 unit) cap capsule Take 1 capsule by mouth every other week. atorvastatin (LIPITOR) 80 mg tablet Take 80 mg by mouth once daily. peiuki-wvrnjxqo-pmszcgr (CREON 36) 36,000-114,000- 180,000 unit delayed release capsule Take by mouth with meals and at bedtime. With snacks also furosemide (LASIX) 20 mg tablet Take 20 mg by mouth once daily. budesonide, enteric coated (ENTOCORT EC) 3 mg 24 hr capsule Take 2 capsules by mouth every afternoon. pantoprazole DR (PROTONIX) 40 mg tablet Take 40 mg by mouth once daily. dicyclomine (BENTYL) 20 mg tablet Take 20 mg by mouth twice daily. VITAMIN B-12 1,000 mcg tab DISSOLVE 1 TABLET BY MOUTH ONCE DAILY amLODIPine (NORVASC) 5 mg tablet Take 7.5 mg by mouth once daily. Takes 7.5 mg each day promethazine (PHENERGAN) 25 mg tablet Take 1 tablet by mouth every 6 hours as needed for nausea/vomiting. clopidogrel (PLAVIX) 75 mg tablet Take 75 mg by mouth once daily. FLUoxetine (PROZAC) 20 mg capsule Take 3 capsules by mouth once daily. abatacept/maltose (ORENCIA, WITH MALTOSE, INTRAVENOUS) Inject intravenously. albuterol HFA (VENTOLIN HFA) 90 mcg/actuation inhaler Inhale 2 Puffs as instructed every 4 hours asneeded for wheezing/shortness of breath. (Patient taking differently: Inhale 2 Puffs as instructed every 4 hours as needed for wheezing/shortness of breath. As needed) buPROPion XL (WELLBUTRIN XL) 150 mg 24 hr tablet Take 1 tablet by mouth once daily. mometasone (NASONEX) 50 mcg/actuation nasal spray Use 2 Sprays in the nose once daily. Rinse mouth after use. albuterol (PROVENTIL) 2.5 mg /3 mL (0.083 %) nebulizer solution Use 3 mL via nebulizer every 4 hours as needed for wheezing/shortness of breath. Use over 5-15minutes. acetaminophen (TYLENOL) 325 mg tablet Take by mouth every 6 hours as needed. albuterol (PROVENTIL) 2.5 mg /3 mL (0.083 %) nebulizer solution Use 3 mL via nebulizer every 6 hours as needed for Wheezing/Shortness of Breath. >Nebulizer For Home Nebulizer for home use. Diagnosis: Moderate persistent asthma with acute exacerbation and pneumonia ALLERGIES Allergen Reactions Cymbalta [Duloxetin* Intolerance Headaches Nsaids (Non-Steroid* Anaphylaxis Had anaphylactic reaction to Aleve Vibramycin [Doxycyc* Anaphylaxis Dilaudid [Hydromorp* Vomiting Morphine Vomiting Horse/Equine Contai* Swelling Vicodin [Hydrocodon* Vomiting Can take if given antiemetic at same time Social History Tobacco Use Smoking status: Former Current packs/day: 0.00 Average packs/day: 1 pack/day for 31.0 years (31.0 ttl pk-yrs) Types: Cigarettes Start date: 01/02/1984 Quit date: 01/01/2015 Years since quittin.4 Smokeless tobacco: Never Tobacco comments: ETS: Father in childhood home. Active smoker in current home. Vaping Use Vaping status: Never Used Substance Use Topics Alcohol use: No Drug use: Never FAMILY HISTORY Problem Relation Age of Onset Hypertension Mother Stroke Mother Cataract Mother Asthma Mother other (ESRD) Mother Kidney failure Mother other (pulmonary hypertention) Mother Heart Father Glaucoma Father Ischemic Heart Disease Father age 42 from [place] Hypertension Sister other (Other) Brother 18 MVA Angioedema Maternal Grandmother other (CHF) Maternal Grandfather Hypertension Paternal Grandmother Stroke Paternal Grandfather Depression Daughter other (PTSD) Daughter other (Anxiety) Daughter other (svt) Daughter Diabetes Daughter REVIEW OF SYSTEMS: Constitutional: No episodes of fever and night sweats. Not significantly fatigued. Normal appetite. Neuro: No MATHEW, vertigo, dizziness and imbalance. No symptoms of neuropathy. HEENT: No recent change in voice, vision or hearing. Resp: No cough, wheeze and hemoptysis. No shortness of breath at rest. No TY. CVS: No exertional chest pain, PND, orthopnea and LE edema. GI: No altered taste or symptoms of stomatitis. No dysphagia and odynophagia. : No dysuria or gross hematuria. Endo: No hot flashes. No polyuria and polydipsia. No heat and cold intolerance. Derm: No current rash. No history of jaundice or diffuse pruritis. Heme: No unusual bleeding and unexplained bruising. Psych: Normal mood. PHYSICAL EXAM: Vitals: Blood pressure 118/72, pulse 77, temperature 36.3 C (97.3 F), temperature source Temporal, height 160 cm (5' 2.99), weight 90 kg (198 lb 8 oz), SpO2 96%. Well-appearing and in no acute distress. EYES: Sclerae are anicteric bilaterally. LYMPHATIC: There is no palpable adenopathy. RESPIRATORY: Inspiratory breath sounds are of normal intensity in all barrios. CARDIOVASCULAR: Rhythm is regular. ABDOMEN: The abdomen is nondistended. No splenomegaly or hepatomegaly. No tenderness. Extremities: No swelling or edema. SKIN: No jaundice. LABS: ASSESSMENT/PLAN: (D50.9) Iron deficiency anemia, unspecified iron deficiency anemia type Assessment: -The patient is a 64-year-old female who has past medical history significant for what is outlined above. She has iron deficiency anemia that is chronic. She is undergoing multiple endoscopies. She has bleeding hemorrhoids, Crohn's disease past history of Homer's lesions persistent hiatal hernia.Also likely has ongoing slow GI blood loss. -She is also on a proton pump inhibitor which would make it difficult for her to absorb iron. Plan: -Recheck CBC and iron studies today. -5 doses of iron sucrose. -Follow-up with recheck of CBC and iron studies along with office visit in about 2 to 3 months. -She will likely need periodic parenteral iron replacement. -Follow-up with Dr. Pitts for management of Crohn's disease. Portions of this documentation were copied and pasted from previous office visit notes in order to provide a cohesive continuity of the history. The note has been reviewed and edited and updated as necessary. I spent a total of 30 minutes on the date of the service which included preparing to see the patient, reviewing EGD and colonoscopy reports via [facility] portal, [id number] patient care, completing clinical documentation, obtaining and/or reviewing separately obtained history, performing a medically appropriate examination, counseling and educating the patient/family/caregiver, communicating with other HCPs (not separately reported), and communicating results to the patient/family/caregiver. Josh Bennett DO documented in this encounterC[facility] Telephone encounter Note * Telephone Encounter - Rosio Buck LPN - 06/15/2024 8:28 AM EST Pharmacy requesting the following refill. Requested Prescriptions Pending Prescriptions Disp Refills leflunomide (ARAVA) 20 mg tablet [Pharmacy Med Name: LEFLUNOMIDE 20MG TAB] 30 tablet 0 Sig: Take 1 tablet by mouth once daily Patient last appointment: 05/15/2024 Next Appointment: 09/18/2024 Patient Phone numbers: [phone] (home) Request is for script(s) to be escript to pharmacy. [facility] [address] [place] [phone] [facility] [phone] 181 Rosio Buck LPN [facility]11-18-2024 Miscellaneous Notes* Telephone Encounter - Rosio Buck LPN - 06/15/2024 8:28 AM EST Pharmacy requesting the following refill. Requested Prescriptions Pending Prescriptions Disp Refills leflunomide (ARAVA) 20 mg tablet [Pharmacy Med Name: LEFLUNOMIDE 20MG TAB] 30 tablet 0 Sig: Take 1 tablet by mouth once daily Patient last appointment: 05/15/2024 Next Appointment: 09/18/2024 Patient Phone numbers: [phone] (home) Request is for script(s) to be escript to pharmacy. [facility] [address] [place] [id number] - [phone] [facility] [phone] [facility] Rosio Buck LPN documented in this encounterC[facility]11-[facility] Telephone encounter Note * Telephone Encounter - Leilani Nayak - 06/03/2024 2:34 PM EST I called and spoke to the patient and she was unable to make any of the sooner appointments with Judi Portillo CNP so she chose to stay with for 06/15/24 Leilani Lu [facility]11-06-[facility]24 Miscellaneous Notes* Telephone Encounter - Leilani Nayak - 06/03/2024 2:34 PM EST I called and spoke to the patient and she was unable to make any of the sooner appointments with Judi Portillo CNP so she chose to stay with for 06/15/24 Leilani Lu * Telephone Encounter - Kathya Rihc LPN - 06/03/2024 1:36 PM EST If pt wants something sooner she could go to Judi as a STATISTICAL MACHINE MECHANIC. Kathya Rich LPN * Telephone Encounter - Leilani Nayak - 06/03/2024 10:55 AM EST I called and spoke to patient and scheduled her for first open appointment which was 06/15/24 with Please confirm that this appointment is ok and if anything else is needed prior to visit Leilani Lu * Telephone Encounter - Amber Rock - 06/03/2024 10:38 AM EST Patient calling in wanting to schedule her consult to hematology. Please review and advise. Amber Rock June 03, 2024 10:38 AM documented in this encounterC[facility]11-06-[facility]24 Telephone encounter Note * Telephone Encounter - Kathya Rich LPN - 06/03/2024 1:36 PM EST If pt wants something sooner she could go to Judi as a STATISTICAL MACHINE MECHANIC. Kathya Rich LPN [facility]11-06-[facility]24 Telephone encounter Note* Telephone Encounter - Leilani Nayak - 06/03/2024 10:55 AM EST I called and spoke to patient and scheduled her for first open appointment which was 06/15/24 with Please confirm that this appointment is ok and if anything else is needed prior to visit Leilani Lu [facility]11-06-[facility] Telephone encounter Note* Telephone Encounter - Amber Rock - 06/03/2024 10:38 AM EST Patient calling in wanting to schedule her consult to hematology. Please review and advise. Amber Rock June 03, 2024 10:38 AM [facility]11-01-2024 Note* Addendum Note - Sarah Pearson PA-C - 05/29/2024 4:23 PM EDTAddended by: SARAH PEARSON on: 05/29/2024 04:23 PM Modules accepted: Orders [facility]11-01-2024 Miscellaneous Notes* Addendum Note - Sarah Pearson PA-C - 05/29/2024 4:23 PM EDTAddended by: SARAH PEARSON on: 05/29/2024 04:23 PM Modules accepted: Orders * Telephone Encounter - Sarah Pearson PA-C - 05/29/2024 4:21 PM EDT If she can remember who she saw- I recommend reaching back out for an appt. Consult placed Sarah Pearson PA-C * Telephone Encounter - Candace Alvarenga MA - 05/29/2024 4:09 PM EDT Called patient and relayed message. She voiced understanding. Patient states she is unable to take Iron tablets. She states it causes vomiting. She states she received Iron IV through heme/onc in [facility] several years ago. Relayed protein enriched foods to patient. * Telephone Encounter - Candace Alvarenga MA - 05/29/2024 4:09 PM EDT ----- Message from Sarah Pearson PA-C sent at 05/29/2024 1:13 PM EDT ----- Please call patient, results showed persistent anemia, hemoglobin 10.1, continues to decline, otherlabs look concerning for iron deficiency. Please see if she is taking any iron, if so how much. If she is not, then she will need to start taking at least 1 tablet daily [id number]. Her proteinlevels are also low, increase protein in diet. Sarah Pearson PA-C 05/29/24 documented in this encounterC[facility]11-01-2024 Telephone encounter Note * Telephone Encounter - Sarah Pearson PA-C - 05/29/2024 4:21 PM EDT If she can remember who she saw- I recommend reaching back out for an appt. Consult placed Sarah Pearson PA-C [facility]11-01-[facility] Telephone encounter Note* Telephone Encounter - Candace Alvarenga MA - 05/29/2024 4:09 PM EDT Called patient and relayed message. She voiced understanding. Patient states she is unable to take Iron tablets. She states it causes vomiting. She states she received Iron IV through heme/onc in [facility] several years ago. Relayed protein enriched foods to patient. [facility]-01[facility] Telephone encounter Note* Telephone Encounter - Candace Alvarenga MA - 05/29/2024 4:09 PM EDT ----- Message from Sarah Pearson PA-C sent at 05/29/2024 1:13 PM EDT ----- Please call patient, results showed persistent anemia, hemoglobin 10.1, continues to decline, otherlabs look concerning for iron deficiency. Please see if she is taking any iron, if so how much. If she is not, then she will need to start taking at least 1 tablet daily [id number]. Her proteinlevels are also low, increase protein in diet. Sarah Pearson PA-C 05/29/24 [facility]10-[facility]24 NoteHNO ID: [id number] Author: SARAH PEARSON PA-C Service: ? Author Type: Physician Collar Stay Fuser Tender Type: Progress Notes Filed: 05/15/2024 16:53 Note Text: [facility] Sarah Pearson PA-C [place]- [address] [place] [address] [place]- [address] [place] [address] [place]- [address] [place] [address] ; RHEUMATOLOGY PROGRESS NOTE VIRTUAL VISIT PROGRESS NOTE This is a virtual visit using HIPAA compliant video platform. It required patient-provider interaction for the medical decision making as documented below using [employer]. I have communicated my name and active licensure. The patient?s identity and physical location were verified at the time of this visit. Either the patient or their legal sales representative publications has been informed of the risks and benefits of -- and alternatives to -- treatment through a remote evaluation and consents to proceed with the evaluation remotely. HPI: Marimar Wang is a 64 year old female seen for RA, osteoporosis, crohn's, psoriasis. Orencia IV every 4 weeks, Arava 20 mg daily Reclast IV yearly, Vit D 50,000 units every other week Hip pain into bl groin. Admits to fall- early summer 2023. Rib fx, hit head. Did not have pain there during that time. Swelling right DIP 5, painful x3-4 days Denies mucous in stools. Hemorrhoids- some blood in stools Rash- PCP diagnosed with psoriasis on her fingers Had to reschedule Orencia 05/04/24 due to sickness GI recently diagnosed her with crohn's disease. And pancreatic insuff. Started Creon, budesonide. Uses Tylenol- does not help Right knee replaced 01/23/2023. Doing well. Dr. Odalis [facility] No longer seeing pain mgmt- not on Lyrica Was diagnosed with TIA. Carotid artery stenosis. On Plavix Jul 2021 - fell on ice fracture NOF. Also had stress fracture which could have been old. Had hemiarthroplasty. COVID 04/06/2021, whole month, COVID pneumonia, pleurisy, bronchitis Following closely with pulmonology, recent PFTs are stable HISTORY REVIEWED (electronic chart updated): PAST MEDICAL HISTORY Diagnosis Date Asthma Homer lesion, acute 01/30/2019 Carotid artery stenosis bilateral- US in [facility] COPD (chronic obstructive pulmonary disease) (HCC) Depression Diverticulosis Fibromyalgia GERD (gastroesophageal reflux disease) GI bleed 02/2019 Hiatal hernia Repaired 05/07/19 Hyperlipidemia Hypertension Insomnia Iron deficiency anemia Osteoarthritis Osteoporosis Piriformis syndrome PVC's (premature ventricular contractions) Rheumatoid arthritis (HCC) Sjogren's disease (HCC) Vitamin D deficiency PAST SURGICAL HISTORY Procedure Laterality Date ARTHRP KNE CONDYLEANDPLATU MEDIALANDLAT COMPARTMENTS 2009 Total left knee surgery COLONOSCOPY FLX DX W/COLLJ SPEC WHEN PFRMD 04/11/2015 diverticulosis, no specimens collected Dr. Tapia COLONOSCOPY FLX DX W/COLLJ SPEC WHEN PFRMD 09/23/[address] Tapia EGD 01/30/2019 large hiatal hernia with Homer erosions, likely source of GI bleed Dr. Rudolph EGD 09/15/2007 patulous GE junction, nonobstructive Schatzki's ring, bile reflux of stomach, hiatal hernia, neg H pylori EGD EUS N/A 07/07/2020 3 cm sliding hiatal hernia, no obst Schatzki's ring, mild duodenitis, mild/moderate gastritis EGD TRANSORAL BIOPSY SINGLE/MULTIPLE 02/17/2020 retained contents in stomach, bxs negative Dr. Pat ESOPHAGOGASTRODUODENOSCOPY TRANSORAL DIAGNOSTIC 05/07/2016 sliding hiatal hernia, no source of GI bleed Dr. Laureano ESOPHAGOGASTRODUODENOSCOPY TRANSORAL DIAGNOSTIC 09/23/2017 normal, bxs negative Dr. Tapia GI TRC IMG INTRALUMINAL ESOPHAGUS-ILEUM W/IANDR 10/04/2017 Normal smallbowel Capsule endosocpy HIATAL HERNIA REPAIR HX 04/2019 LAPS RPR PARAESPHGL HRNA INCL FUNDPLSTY W/MESH 05/07/2019 Dr. Pat MRI BRAIN W/O CONTRAST 07/20/2011 PAST SURGICAL HISTORY OF 1983, 1986 2 C Sections PAST SURGICAL HISTORY OF 1982 Left shoulder, has screw in shoulder FAMILY HISTORY Problem Relation Age of Onset Hypertension Mother Stroke Mother Cataract Mother Asthma Mother other (ESRD) Mother Heart Father Glaucoma Father Ischemic Heart Disease Father age 42 from [place] Hypertension Sister other (Other) Brother 18 MVA Depression Daughter other (PTSD) Daughter other (Anxiety) Daughter other (svt) Daughter Diabetes Daughter Social History Tobacco Use Smoking status: Former Current packs/day: 0.00 Average packs/day: 1 pack/day for 31.0 years (31.0 ttl pk-yrs) Types: Cigarettes Start date: 01/02/1984 Quit date: 01/01/2015 Years since quittin.3 Smokeless tobacco: Never Tobacco comments: ETS: Father in childhood home. Active smoker in current home. Vaping Use Vaping status: Never Used Substance Use Topics Alcohol use: No Drug use: Never Current Outpatient Medications (more content not included)...[facility]10-18-[facility]24 History of Present illness Narrative* Sarah Pearson PA-C - 05/15/2024 4:26 PM EDT Images from the original note were not included. [facility] Sarah Pearson PA-C [place]- [address] [place] [address] [place]- [address] [place] [address] [place]- [address] [place] [address] ; RHEUMATOLOGY PROGRESS NOTE VIRTUAL VISIT PROGRESS NOTE This is a virtual visit using HIPAA compliant video platform. It required patient-provider interaction for the medical decision making as documented below using [employer]. I have communicated my name and active licensure. The patient s identity and physical location wereverified at the time of this visit. Either the patient or their legal sales representative publications has been informed of the risks and benefits of -- and alternatives to -- treatment through a remote evaluation andconsents to proceed with the evaluation remotely. HPI: Marimar Wang is a 64 year old female seen for RA, osteoporosis, crohn's, psoriasis. Orencia IV every 4 weeks, Arava 20 mg daily Reclast IV yearly, Vit D 50,000 units every other week Hip pain into bl groin. Admits to fall- early summer 2023. Rib fx, hit head. Did not have pain there during that time. Swelling right DIP 5, painful x3-4 days Denies mucous in stools. Hemorrhoids- some blood in stools Rash- PCP diagnosed with psoriasis on her fingers Had to reschedule Orencia 05/04/24 due to sickness GI recently diagnosed her with crohn's disease. And pancreatic insuff. Started Creon, budesonide. Uses Tylenol- does not help Right knee replaced 01/23/2023. Doing well. Dr. Odalis [facility] No longer seeing pain mgmt- not on Lyrica Was diagnosed with TIA. Carotid artery stenosis. On Plavix Jul 2021 - fell on ice fracture NOF. Also had stress fracture which could have been old. Had hemiarthroplasty. COVID 04/06/2021, whole month, COVID pneumonia, pleurisy, bronchitis Following closely with pulmonology, recent PFTs are stable HISTORY REVIEWED (electronic chart updated): PAST MEDICAL HISTORY Diagnosis Date Asthma Homer lesion, acute 01/30/2019 Carotid artery stenosis bilateral- US [place] [facility] COPD (chronic obstructive pulmonary disease) (HCC) Depression Diverticulosis Fibromyalgia GERD (gastroesophageal reflux disease) GI bleed 02/2019 Hiatal hernia Repaired 05/07/19 Hyperlipidemia Hypertension Insomnia Iron deficiency anemia Osteoarthritis Osteoporosis Piriformis syndrome PVC's (premature ventricular contractions) Rheumatoid arthritis (HCC) Sjogren's disease (HCC) Vitamin D deficiency PAST SURGICAL HISTORY Procedure Laterality Date ARTHRP KNE CONDYLE&PLATU MEDIAL&LAT COMPARTMENTS 2009 Total left knee surgery COLONOSCOPY FLX DX W/COLLJ SPEC WHEN PFRMD 04/11/2015 diverticulosis, no specimens collected Dr. Tapia COLONOSCOPY FLX DX W/COLLJ SPEC WHEN PFRMD 09/23/[address] Tapia EGD 01/30/2019 large hiatal hernia with Homer erosions, likely source of GI bleed Dr. Rudolph EGD 09/15/2007 patulous GE junction, nonobstructive Schatzki's ring, bile reflux of stomach, hiatal hernia, neg H pylori EGD EUS N/A 07/07/2020 3 cm sliding hiatal hernia, no obst Schatzki's ring, mild duodenitis, mild/moderate gastritis EGD TRANSORAL BIOPSY SINGLE/MULTIPLE 02/17/2020 retained contents in stomach, bxs negative Dr. Pat ESOPHAGOGASTRODUODENOSCOPY TRANSORAL DIAGNOSTIC 05/07/2016 sliding hiatal hernia, no source of GI bleed Dr. Laureano ESOPHAGOGASTRODUODENOSCOPY TRANSORAL DIAGNOSTIC 09/23/2017 normal, bxs negative Dr. Tapia GI TRC IMG INTRALUMINAL ESOPHAGUS-ILEUM W/I&R 10/04/2017 Normal smallbowel Capsule endosocpy HIATAL HERNIA REPAIR HX 04/2019 LAPS RPR PARAESPHGL HRNA INCL FUNDPLSTY W/MESH 05/07/2019 Dr. Pat MRI BRAIN W/O CONTRAST 07/20/2011 PAST SURGICAL HISTORY OF 1983, 1986 2 C Sections PAST SURGICAL HISTORY OF 1982 Left shoulder, has screw in shoulder FAMILY HISTORY Problem Relation Age of Onset Hypertension Mother Stroke Mother Cataract Mother Asthma Mother other (ESRD) Mother Heart Father Glaucoma Father Ischemic Heart Disease Father age 42 from [place] Hypertension Sister other (Other) Brother 18 MVA Depression Daughter other (PTSD) Daughter other (Anxiety) Daughter other (svt) Daughter Diabetes Daughter Social History Tobacco Use Smoking status: Former Current packs/day: 0.00 Average packs/day: 1 pack/day for 31.0 years (31.0 ttl pk-yrs) Types: Cigarettes Start date: 01/02/1984 Quit date: 01/01/2015 Years since quittin.3 Smokeless tobacco: Never Tobacco comments: ETS: Father in childhood home. Active smoker in current home. Vaping Use Vaping status: Never Used Substance Use Topics Alcohol use: No Drug use: Never Current Outpatient Medications Medication Sig Fluticasone Propionate (CUTIVATE) 0.05 % cream Apply to affected area two times a day. meclizine (ANTIVERT) 25 mg tab Take 25 mg by mouth three times a day as needed (for dizziness). cholecalciferol, Vitamin D3, (VITAMIN D3) 1,250 mcg (50,000 unit) cap capsule Take 1 capsule by mouth every other week. atorvastatin (LIPITOR) 80 mg tablet Take 80 mg by mouth once daily. ehrhyc-oyfzsnns-ytnplvc (CREON 36) 36,000-114,000- 180,000 unit delayed release capsule Take by mouth with meals and at bedtime. With snacks also furosemide (LASIX) 20 mg tablet Take 20 mg by mouth once daily. budesonide, enteric coated (ENTOCORT EC) 3 mg 24 hr capsule Take 2 capsules by mouth every afternoon. pantoprazole DR (PROTONIX) 40 mg tablet Take 40 mg by mouth once daily. dicyclomine (BENTYL) 20 mg tablet Take 20 mg by mouth twice daily. VITAMIN B-12 1,000 mcg tab DISSOLVE 1 TABLET BY MOUTH ONCE DAILY amLODIPine (NORVASC) 5 mg tablet Take by mouth. Takes 7.5 mg each day promethazine (PHENERGAN) 25 mg tablet Take 1 tablet by mouth every 6 hours as needed for nausea/vomiting. clopidogrel (PLAVIX) 75 mg tablet Take 75 mg by mouth once daily. FLUoxetine (PROZAC) 20 mg capsule Take 3 capsules by mouth once daily. abatacept/maltose (ORENCIA, WITH MALTOSE, INTRAVENOUS) Inject intravenously. albuterol HFA (VENTOLIN HFA) 90 mcg/actuation inhaler Inhale 2 Puffs as instructed every 4 hours asneeded for wheezing/shortness of breath. (Patient taking differently: Inhale 2 Puffs as instructed every 4 hours as needed for wheezing/shortness of breath. As needed) mometasone (NASONEX) 50 mcg/actuation nasal spray Use 2 Sprays in the nose once daily. Rinse mouth after use. albuterol (PROVENTIL) 2.5 mg /3 mL (0.083 %) nebulizer solution Use 3 mL via nebulizer every 4 hours as needed for wheezing/shortness of breath. Use over 5-15minutes. acetaminophen (TYLENOL) 325 mg tablet Take by mouth every 6 hours as needed. albuterol (PROVENTIL) 2.5 mg /3 mL (0.083 %) nebulizer solution Use 3 mL via nebulizer every 6 hours as needed for Wheezing/Shortness of Breath. >Nebulizer For Home Nebulizer for home use. Diagnosis: Moderate persistent asthma with acute exacerbation and pneumonia leflunomide (ARAVA) 20 mg tablet Take 1 tablet by mouth once daily. buPROPion XL (WELLBUTRIN XL) 150 mg 24 hr tablet Take 1 tablet by mouth once daily. No current facility-administered medications for this visit. ALLERGIES Allergen Reactions Cymbalta [Duloxetin* Intolerance Headaches Nsaids (Non-Steroid* Anaphylaxis Had anaphylactic reaction to Aleve Vibramycin [Doxycyc* Anaphylaxis Dilaudid [Hydromorp* Vomiting Morphine Vomiting Horse/Equine Contai* Swelling Vicodin [Hydrocodon* Vomiting Can take if given antiemetic at same time History Review: I have reviewed and modified as needed, the following during this visit: Allergies,Past Medical History, Past Surgical History, Past Family History, Past Social History. There were no vitals taken for this visit. REVIEW OF SYSTEMS: GENERAL: feeling well without fatigue, no recent change in weight As noted in HPI PHYSICAL EXAMINATION: VIDEO EXAM: (if completed, performed via video enabled technology) GENERAL: alert and appropriate, in no distress, well-hydrated, well nourished, and happy, smiling, interactive EXTREMITIES: difficulty making a tight fist with both hands Several PIPs tender Right DIP 5 tender, swelling? Labs: 02/18 Cr 0.82 LFT normal CBC with hgb 10.2 03/2023 Cr 0.8 LFT normal CRP normal Vit D 89.2 Hep panel neg CBC normal ESR 26 TB neg 05/2022 Cr 0.7 LFT normal CBC normal 10/2021 Creatinine0.63 Liver enzymes normal CRP normal CBC normal ESR 12 Serology: RF positive, CCP positive Radiology: IMPRESSION: Large hiatal hernia. Again seen is mild, diffuse bronchial wall thickening. Interval development of multifocal bilateral groundglass attenuation airspace opacities within both lungs, concerning for multifocal pneumonia. Interval follow-up examination after treatment is recommended in order to ensure resolution. Sequela of remote granulomatous disease. Interval development of tiny pulmonary nodules, measuring up to 2 mm in size. Incidental Finding: No follow-up imaging for this/these incidentally detected lung nodule(s) is recommended. If there are risk factors for lung malignancy, a follow-up chest CT exam could be obtained in 12 months. Interval development of anterior mediastinal lymphadenopathy. IMPRESSION: MODERATE TO MARKED OSTEOARTHRITIS OF THE PATELLOFEMORAL AND MEDIAL COMPARTMENT. NONDISPLACED MEDIAL MENISCUS TEAR. PARTIALLY RUPTURED MATTHEW'S CYST. Impression IMPRESSION: Mild spondylotic changes as detailed noting multilevel facet arthropathy, most pronounced at L4-5 and L5-S1. No significant canal or foraminal narrowing. Anatomic Thoracic/Lumbar Variant: None. L4-5 is considered the level of the iliac crest and assume there are 5 lumbar-type vertebrae. 07/19 - IMPRESSION: 1. Osteoporosis. 2. Osteopenia in the right hip/femoral neck. LUMBAR SPINE: The bone mineral density from L1 through L4 is 0.767 grams per square centimeter which yields a T-score of -2.5. There has been an 8.9% statistically significant interval increase in bone mineral density. RIGHT HIP: The bone mineral density of the total region of the hip is 0.824 grams per square centimeter which yields a T-score of -1.0. RIGHT FEMORAL NECK: The bone mineral density of the femoral neck is 0.710 grams per square centimeter which yields a T-score of -1.3. 10-year Fracture Risk (FRAX): Major osteoporotic fracture risk 25% Hip fracture risk is 2.4% 10/18 Electrodiagnostic impression: This is a normal electrodiagnostic study of the right upper and right lower limb. There is no electrodiagnostic evidence for peripheral neuropathy, cervical radiculopathy or lumbosacral radiculopathy. ANCA neg ASSESSMENT: (M05.79) Rheumatoid arthritis involving multiple sites with positive rheumatoid factor (HCC) (primary encounter diagnosis) (M81.0) Osteoporosis, unspecified osteoporosis type, unspecified pathological fracture presence (Z79.899) High risk medication use (E55.9) Vitamin D deficiency (R21) Rash and nonspecific skin eruption 64-year-old woman is here for follow-up. Patient has seropositive rheumatoid arthritis, erosive osteoarthritis and osteoporosis. She was on Humira and Arava however discontinued due to being sick. Patient was switched to Orencia infusions. Had been doing well on combination Orencia IV every 4 weeks infusions and Arava 20 mg daily. Osteoporosis. Bone density shows improvement since starting Reclast. BMD shows osteoporosis with T score -2.5 lumbar spine. S/p Reclast 02/2018, 05/2019, 12/2020, 12/2021, 03/2023. Would like her to have 1 additional dose 04/2024 for a total of 6 doses, obtain bone density 07/21 and then take a drug holiday. Continue 50,000 units every other week. Patient said she saw pulmonology, was told she did not have RA-ILD. 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 Following with cardiology for chronic diastolic heart failure. Carotid artery atherosclerosis. On Plavix Vanessa fundoplication completed, doing better. She has had left trochanteric bursitis in past. Recommend exercises and stretching. Injections can be considered in the future if needed. She is seeing spine and pain management and receiving procedures in her low back Patient has erythematous scaling lesions noted to her fingers with extreme itching, looks suspicious for eczema. Seeing PCP. Has not seen derm to confirm if truly has psoriasis. Dumping syndrome, crohn's disease. Seeing GI. On budesonide. PLAN: RA flaring with recently missing her Orencia on 05/04/2024, advised to reschedule as soon as possible as RA was doing well Continue Orencia IV every 4 weeks Continue Arava 20 mg daily For osteoporosis, continue Reclast for one more time. This will be her 6th Reclast. May need to switch to Prolia or Forteo. Last BMD shows high FRAX score. Due again for repeat scan 06/2024-order placed Labs every 3 months with infusions-due Would like her eventually to come off budesonide as she is currently undergoing treatment for osteoporosis and has had history of fractures in the past, may need to discuss long-term treatment for Crohn's disease with GI There are no Patient Instructions on file for this visit. Sarah Pearson PA-C I spent a total of 25 minutes on the date of the service which included preparing to see the patient, [id number] patient care, completing clinical documentation, obtaining and/or reviewing separately obtained history, performing a medically appropriate examination, counseling and educating the pat ient/family/caregiver, ordering medications, tests, or procedures, independently interpreting results (not separately reported), communicating results to the patient/family/caregiver, and care coordination (not separately reported). documented in this encounterCleveland [facility]08-23-[facility]24 [facility] Medical [facility] Department [address] [place] [address] History Physical Exam 03/20/24 1333 MR#: [id number] Acct: [id number] Name: MARIMAR WANG Rep #: [id number] : 1960 63 From: Andrez Friend DO PCP: SINAI Arriola Status:REG SDC Location: [facility]16-1 History and Physical Date of Admission: 03/20/24 MARIMAR WANG, is a 63 F who presents to the office today for follow up. Prior workup: ? Surgery with Vanessa fundoplication for large hiatal hernia. *BGI established 09.19.22 with mild dysphagia, loose stools and nausea following fundoplication 2018 ? Biochemical CBC, ESR, CMP, LDH, GAME, ANTONIO, YADIEL comp, ANCA without pertinent abnormality ? CRP H5.02, Crohn???s (apANCA, ACCA, ALCA, AMCA) ? EGD and colonoscopy 12.13.22 irregular Zline; small hiatal hernia; intact Toupet fundoplication. Metaplasia neg. ? Colonoscopy diverticulosis; congested mucosa. No path changes OV 11.21.22 currently experiencing constipation with utilization of MiraLAX; will return to colestipol if loose stools return. ? Stool calprotectin, lactoferrin WNL OV 07.05.23 reports unintentional weight loss because of loose stools. She was taking colestipol previously but this caused constipation and she quit. Contact 09.23.23 Elastase is low and her lactoferrin is positive. Treated with SIBO and start PERT. Contact 09.25.23 To start xifaxan and creon. OV 11.15.23 Stopped Colestipol d/t constipation. Diarrhea improved, but will have episodes on occasion. Stomach pain RUQ and bloating during eating. Frequent nausea and vomiting. Difficulty swallowing many types of food and gastric reflux during eating. C/o hemorrhoids. OV 03.10.24 pt reports daily nausea with vomiting 3 times a week. Pt reports that she is only eating once a day due to abdominal cramping. Pt states that dicyclomine is not helpful. Pt reports 2-3 bm per day; usually diarrhea; denies blood in the stool. Pt reports difficulty swallowing that has been going on for 2-3 years, feels like food is getting stuck in her throat. ROS Const Constitutional: Positive for fatigue, frequent falls and weight change (weight loss); No fever(s) ENT ENT: Positive for difficulty swallowing Gastro GI: Positive for abdominal pain, bloating, diarrhea, difficulty swallowing, excessive flatus, nausea/dyspepsia and vomiting; No belching, change in bowel habits, change in stool character, coffee ground emesis, constipation, cramping, heartburn, feeling full early, incontinent of stools, Vomiting blood/hematemesis, Blood in stool, loose stools, Black,tarry stools, pain with swallowing or other Musc Musculoskeletal: Positive for abnormal gait, joint pain, back pain, joint swelling, muscle cramps, muscle weakness, stiffness and Arthritis Skin Skin: No yellowing of the eye or itchy eyes Neuro Neurology: Positive for abnormal gait, frequent falls and tremor(s) Psych Psychiatric: Positive for anxiety and Positive for depression Endo Endocrine: Positive for fatigue and weight change (weight loss) Aller/Imm Allergy/Immunologic: No itchy eyes Andrew/Lymp Hematologic/Lymphatic: Positive for easy bleeding and easy bruising Exam Const General: cooperative and comfortable Nutritional Appearance: obese Orientation: alert, awake and oriented x3 Assessment and Plan Assessment and Plan (1) Diarrhea: Status: Chronic Qualifiers: Diarrhea type: unspecified type Qualified Code(s): R19.7 - Diarrhea, unspecified Plan: 63-year-old with history of chronic diarrhea for at least 5 years. She has a past medical history of rheumatoid arthritis and Sjogren syndrome currently on Orencia therapy. In the workup of her chronic diarrhea we did biochemical testing that it showed 4 out of 5 markers for Crohn's disease with aggressive activity. She did undergo an upper endoscopy and lower colonoscopy. There was no gross inflammation seen in the upper or lower GI tract. This was confirmed by biopsies of the duodenum, stomach and randomly through the colon and terminal ileum. She comes in today still continuing to have diarrhea. Most of which is postprandial. We gave her colestipol before a previous diagnosis of dumping syndrome that was given to her several years ago. She also has a strong family history of inflammatory bowel disease in her mother that has ulcerative colitis. For now we will check her stools for alpha-1 antitrypsin. We will check her QuantiFERON gold status and acute on chronic hepatitis status. We will also start her on empiric budesonide 6 mg a day. We will order MR enterography to see if there is any mu (more content not included)...[facility]06-04-2024 Note* Addendum Note - Jennifer Arias MD - 12/31/2023 3:25 PM EDTAddended by: JENNIFER ARIAS on: 12/31/2023 03:25 PM Modules accepted: Orders [facility]06-04-2024 Miscellaneous Notes* Addendum Note - Jennifer Arias MD - 12/31/2023 3:25 PM EDTAddended by: JENNIFER ARIAS on: 12/31/2023 03:25 PM Modules accepted: Orders * Telephone Encounter - Rosio Buck LPN - 12/31/2023 3:10 PM EDT Patient left stating she contacted her pharmacy to get a refill on Arava and they told her the prescription was cancelled. Rosio Buck LPN documented in this encounterCleveland [id number] Telephone encounter Note * Telephone Encounter - Rosio Buck LPN - 12/31/2023 3:10 PM EDT Patient left vm stating she contacted her pharmacy to get a refill on Arava and they told her the prescription was cancelled. Rosio Buck LPN [facility]04-25-2024 History of Present illness Narrative* Jennifer Arias MD - 11/21/2023 11:03 AM EDT Images from the original note were not included. RHEUMATOLOGY PROGRESS NOTE HPI: Marimar Wang is a 63 year old female seen for RA, osteoporosis. GI recently diagnosed her with crohn's disease. And pancreatic insuff. Started Creon, abx, Entocort. Orencia IV every 4 weeks, Arava 20 mg daily Reclast IV yearly, Vit D 50,000 units every other week Had a fall and rib fractures. Healing well. Pain 4/10 in hands Swelling- hands AM stiffness- a few hours Completed workup with GI- has dumping syndrome. No IBD. Unintentional weight loss. No fractures/ has had some falls. Lost balance. Had done PT this year which helps with balance. Uses Tylenol- does not help Psoriasis diagnosed by PCP 6 mo ago- fingers, legs. Using a topical steroid cream as needed- not helping. Very itchy Right knee replaced 01/23/2023. Doing well. Dr. Odalis Cooney [facility] No longer seeing pain mgmt- not on Lyrica Was diagnosed with TIA. Carotid artery stenosis. On Plavix Jul 2021 - fell on ice fracture NOF. Also had stress fracture which could have been old. Had hemiarthroplasty. COVID 04/06/2021, whole month, COVID pneumonia, pleurisy, bronchitis Following closely with pulmonology, recent PFTs are stable HISTORY REVIEWED (electronic chart updated): PAST MEDICAL HISTORY Diagnosis Date Asthma Homer lesion, acute 01/30/2019 Carotid artery stenosis bilateral- US in [facility] COPD (chronic obstructive pulmonary disease) (HCC) Depression Diverticulosis Fibromyalgia GERD (gastroesophageal reflux disease) GI bleed 02/2019 Hiatal hernia Repaired 05/07/19 Hyperlipidemia Hypertension Insomnia Iron deficiency anemia Osteoarthritis Osteoporosis Piriformis syndrome PVC's (premature ventricular contractions) Rheumatoid arthritis (HCC) Sjogren's disease (HCC) Vitamin D deficiency PAST SURGICAL HISTORY Procedure Laterality Date ARTHRP KNE CONDYLE&PLATU MEDIAL&LAT COMPARTMENTS 2009 Total left knee surgery COLONOSCOPY FLX DX W/COLLJ SPEC WHEN PFRMD 04/11/2015 diverticulosis, no specimens collected Dr. Tapia COLONOSCOPY FLX DX W/COLLJ SPEC WHEN PFRMD 09/23/[address] Tapia EGD 01/30/2019 large hiatal hernia with Homer erosions, likely source of GI bleed Dr. Rudolph EGD 09/15/2007 patulous GE junction, nonobstructive Schatzki's ring, bile reflux of stomach, hiatal hernia, neg H pylori EGD EUS N/A 07/07/2020 3 cm sliding hiatal hernia, no obst Schatzki's ring, mild duodenitis, mild/moderate gastritis EGD TRANSORAL BIOPSY SINGLE/MULTIPLE 02/17/2020 retained contents in stomach, bxs negative Dr. Pat ESOPHAGOGASTRODUODENOSCOPY TRANSORAL DIAGNOSTIC 05/07/2016 sliding hiatal hernia, no source of GI bleed Dr. Laureano ESOPHAGOGASTRODUODENOSCOPY TRANSORAL DIAGNOSTIC 09/23/2017 normal, bxs negative Dr. Tapia GI TRC IMG INTRALUMINAL ESOPHAGUS-ILEUM W/I&R 10/04/2017 Normal smallbowel Capsule endosocpy HIATAL HERNIA REPAIR HX 04/2019 LAPS RPR PARAESPHGL HRNA INCL FUNDPLSTY W/MESH 05/07/2019 Dr. Pat MRI BRAIN W/O CONTRAST 07/20/2011 PAST SURGICAL HISTORY OF 1983, 1986 2 C Sections PAST SURGICAL HISTORY OF 1982 Left shoulder, has screw in shoulder FAMILY HISTORY Problem Relation Age of Onset Hypertension Mother Stroke Mother Cataract Mother Asthma Mother other (ESRD) Mother Heart Father Glaucoma Father Ischemic Heart Disease Father age 42 from [place] Hypertension Sister other (Other) Brother 18 MVA Depression Daughter other (PTSD) Daughter other (Anxiety) Daughter other (svt) Daughter Diabetes Daughter Social History Tobacco Use Smoking status: Former Packs/day: 1.00 Years: 31.00 Additional pack years: 0.00 Total pack years: 31.00 Types: Cigarettes Quit date: 01/01/2015 Years since quittin.9 Smokeless tobacco: Never Tobacco comments: ETS: Father in childhood home. Active smoker in current home. Vaping Use Vaping Use: Never used Substance Use Topics Alcohol use: No Drug use: Never Current Outpatient Medications Medication Sig atorvastatin (LIPITOR) 80 mg tablet Take 80 mg by mouth once daily. ekpqwk-vceovbyt-nsouxsl (CREON 36) 36,000-114,000- 180,000 unit delayed release capsule Take by mouth with meals and at bedtime. With snacks also furosemide (LASIX) 20 mg tablet Take 20 mg by mouth once daily. pantoprazole DR (PROTONIX) 40 mg tablet Take 40 mg by mouth once daily. dicyclomine (BENTYL) 20 mg tablet Take 20 mg by mouth twice daily. VITAMIN B-12 1,000 mcg tab DISSOLVE 1 TABLET BY MOUTH ONCE DAILY amLODIPine (NORVASC) 5 mg tablet Take by mouth. Takes 7.5 mg each day promethazine (PHENERGAN) 25 mg tablet Take 1 tablet by mouth every 6 hours as needed for nausea/vomiting. clopidogrel (PLAVIX) 75 mg tablet Take 75 mg by mouth once daily. FLUoxetine (PROZAC) 20 mg capsule Take 3 capsules by mouth once daily. abatacept/maltose (ORENCIA, WITH MALTOSE, INTRAVENOUS) Inject intravenously. albuterol HFA (VENTOLIN HFA) 90 mcg/actuation inhaler Inhale 2 Puffs as instructed every 4 hours asneeded for wheezing/shortness of breath. (Patient taking differently: Inhale 2 Puffs as instructed every 4 hours as needed for wheezing/shortness of breath. As needed) buPROPion XL (WELLBUTRIN XL) 150 mg 24 hr tablet Take 1 tablet by mouth once daily. mometasone (NASONEX) 50 mcg/actuation nasal spray Use 2 Sprays in the nose once daily. Rinse mouth after use. albuterol (PROVENTIL) 2.5 mg /3 mL (0.083 %) nebulizer solution Use 3 mL via nebulizer every 4 hours as needed for wheezing/shortness of breath. Use over 5-15minutes. acetaminophen (TYLENOL) 325 mg tablet Take by mouth every 6 hours as needed. albuterol (PROVENTIL) 2.5 mg /3 mL (0.083 %) nebulizer solution Use 3 mL via nebulizer every 6 hours as needed for Wheezing/Shortness of Breath. >Nebulizer For Home Nebulizer for home use. Diagnosis: Moderate persistent asthma with acute exacerbation and pneumonia leflunomide (ARAVA) 20 mg tablet Take 1 tablet by mouth once daily. cholecalciferol, Vitamin D3, (VITAMIN D3) 1,250 mcg (50,000 unit) cap capsule Take 1 capsule by mouth every other week. budesonide, enteric coated (ENTOCORT EC) 3 mg 24 hr capsule Take 2 capsules by mouth every afternoon. simvastatin (ZOCOR) 40 mg tablet Take 1 tablet by mouth daily at bedtime. hyoscyamine (LEVSIN) 0.125 mg tablet Take 1 tablet by mouth every 6 hours as needed. No current facility-administered medications for this visit. ALLERGIES Allergen Reactions Cymbalta [Duloxetin* Intolerance Headaches Nsaids (Non-Steroid* Anaphylaxis Had anaphylactic reaction to Aleve Vibramycin [Doxycyc* Anaphylaxis Dilaudid [Hydromorp* Vomiting Morphine Vomiting Horse/Equine Contai* Swelling Vicodin [Hydrocodon* Vomiting Can take if given antiemetic at same time History Review: I have reviewed and modified as needed, the following during this visit: Allergies,Past Medical History, Past Surgical History, Past Family History, Past Social History. Interval Review of Systems CONSTITUTIONAL: Recent Weight change: No Fever: No EYES: Dryness in nose: No Dryness of mouth: No Oral ulcers: No CARDIOVASCULAR: Pain in chest: No RESPIRATORY: Shortness of breath: No Cough: No GASTROINTESTINAL: Nausea: No Vomiting: No Changes in bowel movements: No Jaundice: No Heartburn: No MUSCULOSKELETAL: Per HPI INTEGUMENTARY: Rash: Yes HEMATOLOGIC/LYMPHATIC: Anemia: No NEUROLOGICAL SYSTEM: Headaches: No Sensitivity or pain of hands and/or feet: No PSYCHIATRIC: Anxiety: No Poor sleep: No BP 147/82 Pulse 81 Temp 36.7 C (98 F) (Temporal) Resp 10 Ht 160 cm (5' 3) Wt 90.7 kg (200 lb) BMI 35.43 kg/m Physical Exam GENERAL: Well appearing, alert, comfortable, in no acute distress, well- hydrated, well nourished. HEENT: Negative for external ears normal. Canals are clear. Both TMs visualized and are normal. EyeExam normal. External nose normal, no nasal ulcer or throat ulcer. NECK: NECK Supple, no adenopathy; thyroid symmetric, normal size, no bruits CARDIAC: regular rate and rhythm, No murmur asculated., and Equal peripheral pulses RESPIRATORY: Lungs clear to auscultation. No wheezing, rhonchi, rales VASCULAR: RRR without murmur, gallop, or rubs. No ectopy. NEURO: Motor and sensory exam normal MOTOR: Normal; including tone, gait, stressed gait, power and coordination. SKIN: Negative for alopecia, malar rash, skin lesion, skin ulcer, pits, thickening, color changes, telangiectasias, nail changes, nail ridging, nail pitting, onycholysis. Maculopapular rash on left second and third fingers, as well as the right 1st finger MUSCULOSKELETAL: Several PIPs tender, no swelling Labs: 03/2023 Cr 0.8 LFT normal CRP normal Vit D 89.2 Hep panel neg CBC normal ESR 26 TB neg 05/2022 Cr 0.7 LFT normal CBC normal 10/2021 Creatinine0.63 Liver enzymes normal CRP normal CBC normal ESR 12 Serology: RF positive, CCP positive Radiology: IMPRESSION: Large hiatal hernia. Again seen is mild, diffuse bronchial wall thickening. Interval development of multifocal bilateral groundglass attenuation airspace opacities within both lungs, concerning for multifocal pneumonia. Interval follow-up examination after treatment is recommended in order to ensure resolution. Sequela of remote granulomatous disease. Interval development of tiny pulmonary nodules, measuring up to 2 mm in size. Incidental Finding: No follow-up imaging for this/these incidentally detected lung nodule(s) is recommended. If there are risk factors for lung malignancy, a follow-up chest CT exam could be obtained in 12 months. Interval development of anterior mediastinal lymphadenopathy. IMPRESSION: MODERATE TO MARKED OSTEOARTHRITIS OF THE PATELLOFEMORAL AND MEDIAL COMPARTMENT. NONDISPLACED MEDIAL MENISCUS TEAR. PARTIALLY RUPTURED MATTHEW'S CYST. Impression IMPRESSION: Mild spondylotic changes as detailed noting multilevel facet arthropathy, most pronounced at L4-5 and L5-S1. No significant canal or foraminal narrowing. Anatomic Thoracic/Lumbar Variant: None. L4-5 is considered the level of the iliac crest and assume there are 5 lumbar-type vertebrae. 07/19 - IMPRESSION: 1. Osteoporosis. 2. Osteopenia in the right hip/femoral neck. LUMBAR SPINE: The bone mineral density from L1 through L4 is 0.767 grams per square centimeter which yields a T-score of -2.5. There has been an 8.9% statistically significant interval increase in bone mineral density. RIGHT HIP: The bone mineral density of the total region of the hip is 0.824 grams per square centimeter which yields a T-score of -1.0. RIGHT FEMORAL NECK: The bone mineral density of the femoral neck is 0.710 grams per square centimeter which yields a T-score of -1.3. 10-year Fracture Risk (FRAX): Major osteoporotic fracture risk 25% Hip fracture risk is 2.4% 10/18 Electrodiagnostic impression: This is a normal electrodiagnostic study of the right upper and right lower limb. There is no electrodiagnostic evidence for peripheral neuropathy, cervical radiculopathy or lumbosacral radiculopathy. ANCA neg ASSESSMENT: (M05.79) Rheumatoid arthritis involving multiple sites with positive rheumatoid factor (HCC) (primary encounter diagnosis) (Z79.899) High risk medication use (M81.6) Localized osteoporosis without current pathological fracture (E55.9) Vitamin D deficiency 63-year-old woman is here for follow-up. Patient has seropositive rheumatoid arthritis, erosive osteoarthritis and osteoporosis. She was on Humira and Arava however discontinued due to being sick. Patient was switched to Orencia infusions. Had been doing well on combination Orencia IV every 4 weeks infusions and Arava 20 mg daily. Osteoporosis. Bone density shows improvement since starting Reclast. BMD shows osteoporosis with T score -2.5 lumbar spine. S/p Reclast 02/2018, 05/2019, 12/2020, 12/2021, 03/2023. Would like her to have 1 additional dose 03/2024 for a total of 6 doses, obtain bone density 07/21 and then take a drug holiday. Recent vitamin D levels were on higher end of normal. Continue 50,000 units every other week. Patient said she saw pulmonology, was told she did not have RA-ILD. 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 Following with cardiology for chronic diastolic heart failure. Because we do subsequent Vanessa fundoplication completed, doing better. She has had left trochanteric bursitis in past. Recommend exercises and stretching. Injections can be considered in the future if needed. She is seeing spine and pain management and receiving procedures in her low back Carotid artery atherosclerosis. On Plavix Patient has erythematous scaling lesions noted to her fingers with extreme itching, looks suspicious for eczema. Prescription given for hydrocortisone topical cream. If no improvement can discuss with PCP. Dumping syndrome- seeing GI PLAN: RA stable Continue Orencia IV every 4 weeks Continue Arava 20 mg daily For osteoporosis, continue Reclast for one more time. This will be her 6th Reclast. May need to switch to Prolia or Forteo. Last BMD shows high FRAX score. Due again for repeat scan 06/2024 Needs refills on vit d and Arava once allergy list is updated. Labs every 3 months with infusions There are no Patient Instructions on file for this visit. Jennifer Arias MD documented in this encounterCleveland Clinic [facility]03-23-2024 Discharge summary Author Pawel Cason [facility] October 19, 2023 7:49pm Note Date/Time October 19, 2023 4:2 0pm [facility] Medical Records Department [address] [place] [address] Emergency Department Summary 10/19/23 MR#: [id number] Acct: [id number] Name: MARIMAR WANG Rep #:[id number] : 1960 63 From: Pawel Cason MD PCP: SINAI Arriola Status:REG E R Location: ED HPI History of Present Illness Chief Complaint: Head Injury Detail of Chief Complaint: Fall with head and right rib trauma Informant: patient Onset/Context/Timing Onset: Hours (Approximately 2 hours ago) Mechanism/Context: Blunt Injury and Fall Location of pain/injuries: - (Right rib cage) Quality of Pain: - (Abrasion over right brow) Location: Right sixth through eighth rib Current Severity: Mild Maximum Severity: Moderate Worsened by: Movement and breathing Relieved by: Nothing Associated Symptoms Associated Symptoms: Positive for Loss of consciousness; Negative for Parasthesias, Weakness, Loss of function, Inability to ambulate or Amnesia Length of loss of consciousness: Transient Narrative Narrative: patient is a 63-year-old woman on Plavix who was walking parking lot. She fell. She landed hitting her head above her right brow and right rib cage. Shereports pain with movement right ribs. She is not amnestic. She denies ringingor ears decreased hearing. Denies dental trauma. She denies neck pain. She denies paresthesia, anesthesia medics. Denies trouble with speech or swallowing. She denies nausea or vomiting. She does report significant headache. She denies abdominal pain, black or maroon-colored stool. She does report bruising easily. She denies hematuria. Prior similar symptoms: No Recent Illness/Hospitalization: No PFSH PFS Medical History Acute bacterial conjunctivitis Acute bronchitis Acute ethmoidal sinusitis, unspecified Acute frontal sinusitis, unspecified Acute maxillary sinusitis, unspecified Acute pharyngitis, unspecified Ambulates with cane Anemia Anxiety Arthritis Asthma Back pain Cardiology follow-up encounter Chronic cough Chronic diastolic CHF (congestive heart failure) Congenital cataract Contact with or suspected exposure to other viral communicable disease COPD exacerbation Coronary artery stenosis Depression Difficulty swallowing Dry eye Fatigue Foreign body in conjunctival sac, left eye, initial encounter Former smoker Hip pain History of CHF (congestive heart failure) History of echocardiogram History of hiatal hernia History of IBS History of irregular heartbeat History of pain when walking History of partial replacement of left hip joint using bipolar prosthesis History of stress test HLD (hyperlipidemia) Hypertension Influenza A Injury of back Insomnia Intermittent palpitations Internal derangement of right knee Iron malabsorption Limb weakness Lumbar spondylosis Lung disease Nausea Osteoarthritis Osteoporosis Post-menopausal Psoriasis Psoriatic arthritis PVCs (premature ventricular contractions) Regular astigmatism, bilateral Shortness of breath on exertion TIA (transient ischemic attack) URI (upper respiratory infection) Vitamin D deficiency Wears glasses Home Medications albuterol sulfate 90 mcg/actuation aerosol inhaler 2 puff inhalation Q4H PRN PRNShortness Of Breath 03/13/15 [History Last Taken Unknown] clopidogrel 75 mg tablet 75 mg PO DAILY BLOOD THINNER 03/13/15 [History Last Taken 11/02/22] simvastatin 20 mg tablet 40 mg PO QHS CHOLESTEROL 03/13/15 [History Last Taken 11/12/17] fluoxetine 20 mg capsule 60 mg PO QHS MENTAL HEALTH 12/13/15 [History Last Taken 11/12/17] bupropion HCl 150 mg 24 hr tablet, extended release 150 mg PO QHS MENTAL HEALTH 11/13/17 [History Last Taken 11/12/17] peg [id number] 1 %-0.2 %-0.2 % eye drops (Dry Eye Relief) 1 drp OP 4X/DAY DRY EYES 11/13/17 [History Last Taken 11/12/17] leflunomide 20 mg tablet (Arava) 20 mg PO DAILY RA 03/22/18 [History Last Taken Unknown] amlodipine 5 mg tablet 7.5 mg PO DAILY BP 08/15/22 [History Last Taken 11/06/22 09:45] mometasone 50 mcg/actuation nasal spray 2 spray intranasal DAILY ALLERGIES 08/15/22 [History Last Taken Unknown] colestipol 1 gram tablet 1 g PO PRN PRN Diarrhea 11/05/22 [History Last Taken Unknown] ergocalciferol (vitamin D2) 1,250 mcg (50,000 unit) capsule (Vitamin D2) 1,250 mcg PO WE SUPPELEMNT 11/05/22 [History Last Taken Unknown] mecobalamin (vitamin B12) 1,000 mcg disintegrating tablet,sublingual 1,000 mcg sublingual DAILY SUPPLEMENT 12/06/22 [History Last Taken Unknown] abatacept 50 mg/0.4 mL subcutaneous syringe (Orencia) 50 mg subcut QMONTH RA 12/17/22 [History Last Taken Unknown] polyethylene glycol 3350 17 gram/dose oral powder (Miralax) 4 g PO PRN PRN Constipation 01/09/23 [History Last Taken Unknown] acetaminophen 500 mg tablet 1,000 mg (2 x 500 mg) PO Q6H #100 tabs 01/24/23 [Rx Last Taken Unknown] budesonide 3 mg capsule,delayed,extended release 6 mg (2 x 3 mg) PO DAILY 30 days #60 ea 07/05/23 [Rx Last Taken Unknown] dicyclomine 20 mg tablet 20 mg PO BID IBS 90 days #180 tabs 07/24/23 [Rx Last Taken Unknown] lorazepam 1 mg tablet (Ativan) 1 mg PO DAILY PRN anxiety #3 tabs 07/24/23 [Rx Last Taken Unknown] pantoprazole 40 mg tablet,delayed release 40 mg PO DAILY GERD #90 tabs 07/24/23 [Rx Last Taken Unknown] promethazine 25 mg tablet 25 mg PO Q6H PRN PRN Nausea #60 tabs 08/05/23 [Rx Last Taken Unknown] [id number] 36,000-114,000-180,000 unit capsule,delay rel (Creon) See Rx Instructions PO .COMPLEX #300 caps 09/25/23 [Rx Last Taken Unknown] Allergy/AdvReac Type Severity Reaction Status Date / Time doxycycline calcium Allergy Anaphylaxis Verified 10/19/23 15:21 [From Vibramycin] doxycycline hyclate Allergy Anaphylaxis Verified 10/19/23 15:21 [From Vibramycin] doxycycline monohydrate Allergy Anaphylaxis Verified 10/19/23 15:21 [From Vibramycin] NSAIDS (Non-Steroidal Allergy Anaphylaxis Verified 10/19/23 15:21 Anti-Inflamma duloxetine [From Cymbalta] AdvReac HEADACHE Verified 10/19/23 15:21 AND UPSET STOMACH hydrocodone bitartrate AdvReac STOMACH Verified 10/19/23 15:21 [From Vicodin] UPSET hydromorphone HCl AdvReac Vomiting Verified 10/19/23 15:21 [From Dilaudid] morphine AdvReac Vomiting Verified 10/19/23 15:21 Family History Mother Asthma Hypertension Kidney disease Father Asthma Myocardial infarction Daughter Asthma Diabetes Hypertension Sister Asthma Hypertension Surgical History H/O adenoidectomy H/O hernia repair H/O shoulder surgery History of cardiac catheterization History of Vanessa fundoplication History of tonsillectomy History of total left knee replacement History of total right knee replacement (TKR) Hx of section Hx of esophagogastroduodenoscopy S/P repair of paraesophageal hernia S/P total knee arthroplasty Social History Smoking Status: Former smoker quit date: 07/29/13 alcohol intake: never ROS ROS ED Constitutional Constitutional ED: Denies chills, fever(s), subjective or sweats Eyes Eyes: Denies blurry vision or change in vision ENT ENT ED: Denies ear pain, rhinorrhea or sore throat Cardiovascular Cardiovascular: Reports chest pain; Denies palpitations Respiratory/Chest Respiratory/Chest: Denies cough, dyspnea or dyspnea on exertion Gastrointestinal Gastrointestinal: Denies abdominal pain, nausea or vomiting Genitourinary Genitourinary ED: Denies dysuria or hematuria Musculoskeletal Musculoskeletal: Denies arthralgias, back pain, myalgias or neck pain Integumentary Reports Abrasions; Denies rash Neurologic Neurologic: Reports headache(s); Denies paresthesias or weakness Hematologic/Lymphatic Hematologic/Lymphatic: Reports easy bruising; Denies easy bleeding or lymphadenopathy EXAM Physical Exam Const Vital Signs: 10/19/23 15:17 10/19/23 16:16 10/19/23 17:39 Temperature 97.3 F L Temperature Source Temporal Pulse Rate 79 75 Respiratory Rate 16 22 H Respiratory Effort Normal Non-Labored Respiratory Depth Normal Respiratory Pattern Normal Blood Pressure 152/72 H 175/63 H Blood Pressure Mean 98 100 Pulse Ox 97 97 Oxygen Delivery Method Room Air Room Air Room Air 10/19/23 19:00 Temperature Temperature Source Pulse Rate 76 Respiratory Rate 16 Respiratory Effort Respiratory Depth Respiratory Pattern Blood Pressure 165/70 H Blood Pressure Mean 101 Pulse Ox 95 Oxygen Delivery Method Room Air Positive well nourished, well developed and obese General Appearance ED: well developed; Negative for NAD Nutritional Appearance: obese HEENT Reports TM's clear HEENT Narrative: Abrasion pain palpation right brow. There is no palpable pression. There is noclinical signs of basilar skull fracture. trauma and tenderness Nose: Negative for septum abnormal Tympanic Membrane ED: Yes TM's clear Eyes PERRL and EOMs intact bilaterally General Eye ED: Yes other Other Details: There is no subconjunctival hemorrhage. Neck Neck Narrative: No posterior midline tenderness. General: Negative for tenderness Chest Wall inspection of chest normal and palpation of chest normal Chest Narrative: There is pain ovation of the right sixth through eighth rib anterior axillary line. Resp normal respiratory effort and clear to auscultation bilaterally Effort and Inspection: pain with movement Cardio regular rhythm, S1 normal heart sound, S2 normal heart sound and no murmurs Rate: regular rate GI normal to inspection, nondistended, normoactive bowel sounds, non-tender, non-distended and no masses GI Narrative: There is no tenderness along the right costal margin. There is no hepatosplenomegaly.There is no bruising or soft tissue swelling noted. Back/Spine normal to inspection and no thoracic nor lumbar tenderness Lumbar Spine / Lower Back: straight leg raise negative bilaterally Extremity normal to inspection and full ROM General Extremety ED: Negative for deformity General Extremity: Negative for deformity Neuro oriented x3, CN's II-XII intact bilaterally, moves all extremities, no focal motor deficits and no sensory deficits noted [place] Coma Scale: document GCS findings Spontaneous Obeys Commands Oriented 15 Sensorium / Orientation: alert Plantar Reflex: Downgoing: bilateral Psych mental status grossly normal and thought process normal Skin No no rashes or lesions noted, No no wounds, skin turgor normal and no jaundice MDM MDM MDM Narrative Medical decision making narrative: Since patient is on Plavix with severe headache after head trauma with loss of conscious will obtain CT of the head to rule out subdural, epidural, traumatic subarachnoid hemorrhage or intraparenchymal contusion. Because of the rib cage pain over the sixth, seventh and eighth right rib will obtain imaging to rule out fracture and more importantly pneumothorax/hemothorax. Radiography Chest X-Ray - ED: Read by ED Physician (4 views were obtained. There is no evidence of pneumothorax or hemothorax. There may be a fracture of the fourth or fifth rib on the right. Cardiac silhouette and size normal. Hilum normal. Vertebrae are unremarkable. Will await formal read by radiologist.) Diagnostic Testing: Clinical Impression(s) from Imaging Studies Brain CT 10/19/23 16:05 IMPRESSION: No acute intracranial hemorrhage or mass effect. Electronically Signed: Augusto Lundberg MD (Brooks) at 17:59 EDT , Ribs X-Ray 10/19/23 17:00 IMPRESSION: Possible nondisplaced fractures of the fourth and fifth ribs. Electronically Signed: Augusto Lundberg MD (Brooks) at 17:37 EDT , CT of the head reveals no evidence of subdural hematoma, epidural hematoma, traumatic subarachnoid hemorrhage or intraparenchymal contusion. Awaiting formal read by radiologist. Treatment and Re-Evaluation Narrative: Patient was medicated with oral opiate analgesia. She was given incentive spirometer. Since patient does not have lower rib fractures CT of the abdomen does not required at this time to rule out hepatic injury. Furthermore there isno tenderness in the right upper quadrant or left costal margin. Discharge Plan Triage Chief Complaint: Head Injury ED Provider: Pawel Cason Dx/Rx/DC Orders Clinical Impression: Multiple fractures of ribs, Contusion of head, Closed head injury with concussion Instructions: ED Concussion, ED Rib Fracture Prescriptions: No Action mometasone 50 mcg/actuation spray,non-aerosol 2 spray intranasal DAILY Rx Instructions: administer into each nostril amlodipine 5 mg tablet 7.5 mg PO DAILY budesonide 3 mg capsule,delayed,extend.release 6 mg PO DAILY 30 Days Qty: 60 3RF mecobalamin (vitamin B12) 1,000 mcg tablet,disintegrating 1,000 mcg sublingual DAILY Rx Instructions: place tablet under tongue and allow to dissolve for at least30 secs before swallowing Orencia 50 mg/0.4 mL syringe 50 mg subcut QMONTH Hold Instructions: Resume on 02/23/23. clopidogrel 75 MG tablet 75 mg PO DAILY Hold Instructions: Resume on 02/08/23. Resume day after completion of Eliquis Patient Comments: BLOOD THINNER simvastatin 20 MG tablet 40 mg PO QHS Patient Comments: CHOLESTEROL LOWERING albuterol sulfate 1 INHALER inhaler 2 puff INHALATION Q4H PRN PRN (Reason: Shortness Of Breath) Patient Comments: BREATING fluoxetine 20 MG capsule 60 mg PO QHS Patient Comments: ANXIETY Dry Eye Relief 15 ML drops 1 drp OP 4X/DAY bupropion HCl 150 MG tablet extended release 24 hr 150 mg PO QHS leflunomide [Arava] 20 tablet 20 mg PO DAILY Hold Instructions: Resume on 02/06/23. Patient Comments: ergocalciferol (vitamin D2) [Vitamin D2] 1,250 mcg (50,000 unit) Capsule 1,250 mcg PO WE colestipol 1 gram tablet 1 g PO PRN PRN (Reason: Diarrhea) Hold Instructions: MD Ordered Rx Instructions: avoid other meds one hour before and 4 hours after polyethylene glycol 3350 [Miralax] 17 gram/dose powder 4 g PO PRN PRN (Reason: Constipation) acetaminophen 500 mg Tablet 1,000 mg PO Q6H Qty: 100 0RF dicyclomine 20 mg tablet 20 mg PO BID 90 Days Qty: 180 0RF pantoprazole 40 mg tablet,delayed release (DR/EC) 40 mg PO DAILY Qty: 90 0RF lorazepam [Ativan] 1 mg tablet 1 mg PO DAILY PRN (Reason: anxiety) Qty: 3 0RF promethazine 25 mg tablet 25 mg PO Q6H PRN PRN (Reason: Nausea) Qty: 60 2RF Creon 36,000-114,000- 180,000 unit capsule,delayed release(DR/EC) See Rx Instructions PO .COMPLEX Qty: 300 11RF Rx Instructions: take 1-2 with snacks and 2-3 with meals Primary Care Provider: Julio Arriaga NP Referrals: Julio Arriaga NP, STATISTICAL MACHINE MECHANIC-C [Primary Care Provider] - Disposition Disposition: Home, Self Care What to do if you have Problems For any increased pain, shortness of breath, bleeding, nausea or vomiting, chestpain, or any unexpected problems, contact your Primary Care Provider. Call [facility] ([phone]) or report to the closest Emergency Room. Call 911 if necessary. 10/19/231948 <Electronically signed by Pawel Cason MD> Cosigner Signature (if applicable): CC: STATISTICAL MACHINE MECHANIC-C Julio Arriaga ~ Signed [facility] Work Phone: 1(726) 318-856003-22-2024 Miscellaneous Notes* Telephone Encounter - Roxane Reilly MA - 10/18/2023 10:29 AM EDT Pharmacy faxed requesting the following refill. Requested Prescriptions Pending Prescriptions Disp Refills leflunomide (ARAVA) 20 mg tablet [Pharmacy Med Name: LEFLUNOMIDE 20 MG TABLET] 30 tablet 2 Sig: take 1 tablet by mouth once daily Patient last appointment: 05/21/2023 Next Appointment: 11/21/2023 Patient Phone numbers: [phone] (home) Request is for script(s) to be escript to pharmacy. Roxane Reilly MA documented in this encounterC[facility] Miscellaneous Notes* Telephone Encounter - Irma Mensah - 09/16/2023 3:22 PM EST Orencia- Bath Pending [phone] [facility]/Portal Irma Joya, [place] Filler documented in this encounterC[facility]10-24-2023 History of Present illness Narrative* Sarah Pearson, LIZZIE - 05/21/2023 11:19 AM EDT Images from the original note were not included. [facility] General Arthritis and Rheumatology Sarah Pearson [address] [place] [address] RHEUMATOLOGY PROGRESS NOTE HPI: Marimar Wang is a 63 year old female seen for RA, osteoporosis. Orencia IV every 4 weeks, Arava 20 mg daily Reclast IV yearly, Vit D 50,000 units every other week Pain 4/10 in hands Swelling- hands AM stiffness- a few hours Completed workup with GI- has dumping syndrome. No IBD. Unintentional weight loss. No fractures/ has had some falls. Lost balance. Had done PT this year which helps with balance. Uses Tylenol- does not help Psoriasis diagnosed by PCP 6 mo ago- fingers, legs. Using a topical steroid cream as needed- not helping. Very itchy Right knee replaced 01/23/2023. Doing well. Dr. Odalis Cooney [facility] No longer seeing pain mgmt- not on Lyrica Was diagnosed with TIA. Carotid artery stenosis. On Plavix Jul 2021 - fell on ice fracture NOF. Also had stress fracture which could have been old. Had hemiarthroplasty. COVID 04/06/2021, whole month, COVID pneumonia, pleurisy, bronchitis Following closely with pulmonology, recent PFTs are stable HISTORY REVIEWED (electronic chart updated): PAST MEDICAL HISTORY Diagnosis Date Asthma Homer lesion, acute 01/30/2019 Carotid artery stenosis bilateral- US in [facility] COPD (chronic obstructive pulmonary disease) (HCC) Depression Diverticulosis Fibromyalgia GERD (gastroesophageal reflux disease) GI bleed 02/2019 Hiatal hernia Repaired 05/07/19 Hyperlipidemia Hypertension Insomnia Iron deficiency anemia Osteoarthritis Osteoporosis Piriformis syndrome PVC's (premature ventricular contractions) Rheumatoid arthritis (HCC) Sjogren's disease (HCC) Vitamin D deficiency PAST SURGICAL HISTORY Procedure Laterality Date ARTHRP KNE CONDYLE&PLATU MEDIAL&LAT COMPARTMENTS 2009 Total left knee surgery COLONOSCOPY FLX DX W/COLLJ SPEC WHEN PFRMD 04/11/2015 diverticulosis, no specimens collected Dr. Tapia COLONOSCOPY FLX DX W/COLLJ SPEC WHEN PFRMD 09/23/[address] Tapia EGD 01/30/2019 large hiatal hernia with Homer erosions, likely source of GI bleed Dr. Rudolph EGD 09/15/2007 patulous GE junction, nonobstructive Schatzki's ring, bile reflux of stomach, hiatal hernia, neg H pylori EGD EUS N/A 07/07/2020 3 cm sliding hiatal hernia, no obst Schatzki's ring, mild duodenitis, mild/moderate gastritis EGD TRANSORAL BIOPSY SINGLE/MULTIPLE 02/17/2020 retained contents in stomach, bxs negative Dr. Pat ESOPHAGOGASTRODUODENOSCOPY TRANSORAL DIAGNOSTIC 05/07/2016 sliding hiatal hernia, no source of GI bleed Dr. Laureano ESOPHAGOGASTRODUODENOSCOPY TRANSORAL DIAGNOSTIC 09/23/2017 normal, bxs negative Dr. Tapia GI TRC IMG INTRALUMINAL ESOPHAGUS-ILEUM W/I&R 10/04/2017 Normal smallbowel Capsule endosocpy HIATAL HERNIA REPAIR HX 04/2019 LAPS RPR PARAESPHGL HRNA INCL FUNDPLSTY W/MESH 05/07/2019 Dr. Pat MRI BRAIN W/O CONTRAST 07/20/2011 PAST SURGICAL HISTORY OF 1983, 1986 2 C Sections PAST SURGICAL HISTORY OF 1982 Left shoulder, has screw in shoulder FAMILY HISTORY Problem Relation Age of Onset Hypertension Mother Stroke Mother Cataract Mother Asthma Mother other (ESRD) Mother Heart Father Glaucoma Father Ischemic Heart Disease Father age 42 from [place] Hypertension Sister other (Other) Brother 18 MVA Depression Daughter other (PTSD) Daughter other (Anxiety) Daughter other (svt) Daughter Diabetes Daughter Social History Tobacco Use Smoking status: Former Packs/day: 1.00 Years: 31.00 Additional pack years: 0.00 Total pack years: 31.00 Types: Cigarettes Quit date: 01/01/2015 Years since quittin.3 Smokeless tobacco: Never Tobacco comments: ETS: Father in childhood home. Active smoker in current home. Vaping Use Vaping Use: Never used Substance Use Topics Alcohol use: No Drug use: Never Current Outpatient Medications Medication Sig cholecalciferol, Vitamin D3, (VITAMIN D3) 1,250 mcg (50,000 unit) cap capsule Take 1 capsule by mouth every other week. leflunomide (ARAVA) 20 mg tablet take 1 tablet by mouth once daily pantoprazole DR (PROTONIX) 40 mg tablet Take 40 mg by mouth once daily. dicyclomine (BENTYL) 20 mg tablet Take 20 mg by mouth twice daily. VITAMIN B-12 1,000 mcg tab DISSOLVE 1 TABLET BY MOUTH ONCE DAILY amLODIPine (NORVASC) 5 mg tablet Take by mouth. Takes 7.5 mg each day promethazine (PHENERGAN) 25 mg tablet Take 1 tablet by mouth every 6 hours as needed for nausea/vomiting. clopidogrel (PLAVIX) 75 mg tablet Take 75 mg by mouth once daily. FLUoxetine (PROZAC) 20 mg capsule Take 3 capsules by mouth once daily. simvastatin (ZOCOR) 40 mg tablet Take 1 tablet by mouth daily at bedtime. abatacept/maltose (ORENCIA, WITH MALTOSE, INTRAVENOUS) Inject intravenously. albuterol HFA (VENTOLIN HFA) 90 mcg/actuation inhaler Inhale 2 Puffs as instructed every 4 hours asneeded for wheezing/shortness of breath. (Patient taking differently: Inhale 2 Puffs as instructed every 4 hours as needed for wheezing/shortness of breath. As needed) mometasone (NASONEX) 50 mcg/actuation nasal spray Use 2 Sprays in the nose once daily. Rinse mouth after use. albuterol (PROVENTIL) 2.5 mg /3 mL (0.083 %) nebulizer solution Use 3 mL via nebulizer every 4 hours as needed for wheezing/shortness of breath. Use over 5-15minutes. acetaminophen (TYLENOL) 325 mg tablet Take by mouth every 6 hours as needed. albuterol (PROVENTIL) 2.5 mg /3 mL (0.083 %) nebulizer solution Use 3 mL via nebulizer every 6 hours as needed for Wheezing/Shortness of Breath. >Nebulizer For Home Nebulizer for home use. Diagnosis: Moderate persistent asthma with acute exacerbation and pneumonia buPROPion XL (WELLBUTRIN XL) 150 mg 24 hr tablet Take 1 tablet by mouth once daily. hyoscyamine (LEVSIN) 0.125 mg tablet Take 1 tablet by mouth every 6 hours as needed. No current facility-administered medications for this visit. ALLERGIES Allergen Reactions Nsaids (Non-Steroid* Anaphylaxis Had anaphylactic reaction to Aleve Vibramycin [Doxycyc* Anaphylaxis Cymbalta [Duloxetin* Intolerance Headaches Dilaudid [Hydromorp* Vomiting Horse Serum [Other] Morphine Vomiting Vicodin [Hydrocodon* Vomiting Can take if given antiemetic at same time History Review: I have reviewed and modified as needed, the following during this visit: Allergies,Past Medical History, Past Surgical History, Past Family History, Past Social History. Interval Review of Systems CONSTITUTIONAL: Recent Weight change: No Fever: No EYES: Dryness in nose: No Dryness of mouth: No Oral ulcers: No CARDIOVASCULAR: Pain in chest: No RESPIRATORY: Shortness of breath: No Cough: No GASTROINTESTINAL: Nausea: No Vomiting: No Changes in bowel movements: No Jaundice: No Heartburn: No MUSCULOSKELETAL: Per HPI INTEGUMENTARY: Rash: Yes HEMATOLOGIC/LYMPHATIC: Anemia: No NEUROLOGICAL SYSTEM: Headaches: No Sensitivity or pain of hands and/or feet: No PSYCHIATRIC: Anxiety: No Poor sleep: No BP 140/63 (BP Site: Left Arm, BP Position: Sitting) Pulse 81 Temp (!) 35.9 C (96.7 F) Ht 160 cm (5' 3) Wt 84.6 kg (186 lb 6.4 oz) SpO2 92% BMI 33.02 kg/m Physical Exam GENERAL: Well appearing, alert, comfortable, in no acute distress, well- hydrated, well nourished. HEENT: Negative for external ears normal. Canals are clear. Both TMs visualized and are normal. EyeExam normal. External nose normal, no nasal ulcer or throat ulcer. NECK: NECK Supple, no adenopathy; thyroid symmetric, normal size, no bruits CARDIAC: regular rate and rhythm, No murmur asculated., and Equal peripheral pulses RESPIRATORY: Lungs clear to auscultation. No wheezing, rhonchi, rales VASCULAR: RRR without murmur, gallop, or rubs. No ectopy. NEURO: Motor and sensory exam normal MOTOR: Normal; including tone, gait, stressed gait, power and coordination. SKIN: Negative for alopecia, malar rash, skin lesion, skin ulcer, pits, thickening, color changes, telangiectasias, nail changes, nail ridging, nail pitting, onycholysis. Maculopapular rash on left second and third fingers, as well as the right 1st finger MUSCULOSKELETAL: Several PIPs tender, no swelling Labs: 03/2023 Cr 0.8 LFT normal CRP normal Vit D 89.2 Hep panel neg CBC normal ESR 26 TB neg 05/2022 Cr 0.7 LFT normal CBC normal 10/2021 Creatinine0.63 Liver enzymes normal CRP normal CBC normal ESR 12 Serology: RF positive, CCP positive Radiology: IMPRESSION: Large hiatal hernia. Again seen is mild, diffuse bronchial wall thickening. Interval development of multifocal bilateral groundglass attenuation airspace opacities within both lungs, concerning for multifocal pneumonia. Interval follow-up examination after treatment is recommended in order to ensure resolution. Sequela of remote granulomatous disease. Interval development of tiny pulmonary nodules, measuring up to 2 mm in size. Incidental Finding: No follow-up imaging for this/these incidentally detected lung nodule(s) is recommended. If there are risk factors for lung malignancy, a follow-up chest CT exam could be obtained in 12 months. Interval development of anterior mediastinal lymphadenopathy. IMPRESSION: MODERATE TO MARKED OSTEOARTHRITIS OF THE PATELLOFEMORAL AND MEDIAL COMPARTMENT. NONDISPLACED MEDIAL MENISCUS TEAR. PARTIALLY RUPTURED MATTHEW'S CYST. Impression IMPRESSION: Mild spondylotic changes as detailed noting multilevel facet arthropathy, most pronounced at L4-5 and L5-S1. No significant canal or foraminal narrowing. Anatomic Thoracic/Lumbar Variant: None. L4-5 is considered the level of the iliac crest and assume there are 5 lumbar-type vertebrae. 07/19 - IMPRESSION: 1. Osteoporosis. 2. Osteopenia in the right hip/femoral neck. LUMBAR SPINE: The bone mineral density from L1 through L4 is 0.767 grams per square centimeter which yields a T-score of -2.5. There has been an 8.9% statistically significant interval increase in bone mineral density. RIGHT HIP: The bone mineral density of the total region of the hip is 0.824 grams per square centimeter which yields a T-score of -1.0. RIGHT FEMORAL NECK: The bone mineral density of the femoral neck is 0.710 grams per square centimeter which yields a T-score of -1.3. 10-year Fracture Risk (FRAX): Major osteoporotic fracture risk 25% Hip fracture risk is 2.4% 10/18 Electrodiagnostic impression: This is a normal electrodiagnostic study of the right upper and right lower limb. There is no electrodiagnostic evidence for peripheral neuropathy, cervical radiculopathy or lumbosacral radiculopathy. ANCA neg ASSESSMENT: (M05.79) Rheumatoid arthritis involving multiple sites with positive rheumatoid factor (HCC) (primary encounter diagnosis) (Z79.899) High risk medication use (M81.6) Localized osteoporosis without current pathological fracture (E55.9) Vitamin D deficiency 63-year-old woman is here for follow-up. Patient has seropositive rheumatoid arthritis, erosive osteoarthritis and osteoporosis. She was on Humira and Arava however discontinued due to being sick. Patient was switched to Orencia infusions. Had been doing well on combination Orencia IV every 4 weeks infusions and Arava 20 mg daily. Osteoporosis. Bone density shows improvement since starting Reclast. BMD shows osteoporosis with T score -2.5 lumbar spine. S/p Reclast 02/2018, 05/2019, 12/2020, 12/2021, 03/2023. Would like her to have 1 additional dose 03/2024 for a total of 6 doses, obtain bone density 07/21 and then take a drug holiday. Recent vitamin D levels were on higher end of normal. Continue 50,000 units every other week. Patient said she saw pulmonology, was told she did not have RA-ILD. 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 Following with cardiology for chronic diastolic heart failure. Because we do subsequent Vanessa fundoplication completed, doing better. She has had left trochanteric bursitis in past. Recommend exercises and stretching. Injections can be considered in the future if needed. She is seeing spine and pain management and receiving procedures in her low back Carotid artery atherosclerosis. On Plavix Patient has erythematous scaling lesions noted to her fingers with extreme itching, looks suspicious for eczema. Prescription given for hydrocortisone topical cream. If no improvement can discuss with PCP. Dumping syndrome- seeing GI PLAN: RA stable Continue Orencia IV every 4 weeks Continue Arava 20 mg daily For osteoporosis, continue Reclast. May need to switch to Prolia or Forteo, consider drug holiday. Last BMD shows high FRAX score. Due again for repeat scan 06/2024 Labs every 3 months with infusions There are no Patient Instructions on file for this visit. Sarah Pearson PA-C documented in this encounterC[facility]10-02-[facility]23 Miscellaneous Notes* Telephone Encounter - Candace Alvarenga MA - 04/29/2023 4:19 PM EDT Called patient and relayed message. She voiced understanding. * Addendum Note - Sarah Pearson PA-C - 04/29/2023 4:13 PM EDTAddended by: SARAH PEARSON on: 04/29/2023 04:13 PM Modules accepted: Orders * Telephone Encounter - Sarah Pearson PA-C - 04/29/2023 4:13 PM EDT Can cut down to every other week * Telephone Encounter - Irma Mensah - 04/29/2023 3:34 PM EDT Called patient and got her scheduled for 04/29 @ 10:40am with Sarah. Irma Lu * Telephone Encounter - Candace Alvarenga MA - 04/29/2023 2:19 PM EDT Patient needs to schedule a follow up per Sarah Pearson PA-C. * Telephone Encounter - Candace Alvarenga MA - 04/29/2023 1:43 PM EDT Patient returned the call. Relayed message to patient. She voiced understanding. Patient states she takes Vitamin D 50,000 international unit(s) once each week. Should she decrease to once every two weeks? * Telephone Encounter - Candace Alvarenga MA - 04/29/2023 1:28 PM EDT LM on patient's VM asking patient to return our call regarding message. * Telephone Encounter - Candace Alvarenga MA - 04/29/2023 1:27 PM EDT ----- Message from Sarah Pearson PA-C sent at 04/29/2023 11:30 AM EDT ----- Please call patient, results showed Vit D on the higher end. Ask how much she is taking- recommend cutting dose in half Pt needs follow up- last appt 10/18 Sarah Pearson PA-C 04/29/23 [facility] Miscellaneous Notes* Telephone Encounter - Rosio Buck LPN - 04/15/2023 12:55 PM EDT Pharmacy requesting the following refill. Patient needs appt Requested Prescriptions Pending Prescriptions Disp Refills leflunomide (ARAVA) 20 mg tablet [Pharmacy Med Name: LEFLUNOMIDE 20 MG TABLET] 30 tablet 2 Sig: take 1 tablet by mouth once daily Patient last appointment: 10/18/2022 Next Appointment: Visit date not found Patient Phone numbers: [phone] (home) Request is for script(s) to be escript to pharmacy. [id number] [place] [address] - [address] [id number] Rosio Buck LPN documented in this encounterC[facility]06-[facility] Discharge summary Author Michael Messinasunil [facility] January 24, 2023 8:57am Note Date/Time January 24, 2023 8:57 am [facility] Medical Records Department [address] [place] [address] Discharge Summary 01/24/23 0855 MR#: [id number] Acct: [id number] Name: MARIMAR WANG Rep #:[id number] : 1960 62 From: Michael Rawls PCP: [facility] Arriola Status:ADM I N Location: [place] [address] Providers Date of Admission: 01/23/23 Primary Care Physician: [facility] Ar[facility] Reason For Visit: RT TOTAL KNEE W ZANE Diagnosis Discharge Diagnosis (1) S/P total knee arthroplasty: Status: Acute Code(s): Z96.659 - Presence of unspecified artificial knee joint Qualifiers: Laterality: right Qualified Code(s): Z96.651 - Presence of right artificial knee joint Plan: Postop day #1 right total knee arthroplasty. PT OT weightbearing as tolerated DVT prophylaxis Oxycodone Requesting to be discharged home she is doing very well and I will see any reason why not Discharge after a.m. physical therapy Follow-up in the office 2 weeks outpatient therapy already scheduled Medications at Discharge Home Medications albuterol sulfate 90 mcg/actuation aerosol inhaler 2 puff inhalation Q4H PRN PRNShortness Of Breath 03/13/15 clopidogrel 75 mg tablet 75 mg PO DAILY BLOOD THINNER 03/13/15 simvastatin 20 mg tablet 40 mg PO QHS CHOLESTEROL 03/13/15 fluoxetine 20 mg capsule 60 mg PO QHS MENTAL HEALTH 12/13/15 acetaminophen 325 mg tablet (Tylenol) 500 mg PO Q6H PRN Pain 07/12/17 bupropion HCl 150 mg 24 hr tablet, extended release 150 mg PO QHS MENTAL HEALTH 11/13/17 peg [id number] 1 %-0.2 %-0.2 % eye drops (Dry Eye Relief) 1 drp OP 4X/DAY DRY EYES 11/13/17 leflunomide 20 mg tablet (Arava) 20 mg PO DAILY RA 03/22/18 amlodipine 5 mg tablet 7.5 mg PO DAILY BP 08/15/22 mometasone 50 mcg/actuation nasal spray 2 spray intranasal DAILY ALLERGIES 08/15/22 colestipol 1 gram tablet 1 g PO PRN PRN Diarrhea 11/05/22 ergocalciferol (vitamin D2) 1,250 mcg (50,000 unit) capsule (Vitamin D2) 1,250 mcg PO WE SUPPELEMNT 11/05/22 mecobalamin (vitamin B12) 1,000 mcg disintegrating tablet,sublingual 1,000 mcg sublingual DAILY SUPPLEMENT 12/06/22 abatacept 50 mg/0.4 mL subcutaneous syringe (Orencia) 50 mg subcut QMONTH RA 12/17/22 promethazine 25 mg tablet 25 mg PO Q6H PRN PRN Nausea #60 tabs 12/25/22 dicyclomine 20 mg tablet 20 mg PO BID IBS 01/09/23 pantoprazole 40 mg tablet,delayed release 40 mg PO DAILY GERD 01/09/23 polyethylene glycol 3350 17 gram/dose oral powder (Miralax) 4 g PO PRN PRN Constipation 01/09/23 acetaminophen 500 mg tablet 1,000 mg (2 x 500 mg) PO Q6H #100 tabs 01/24/23 apixaban 2.5 mg tablet (Eliquis) 2.5 mg PO BID #30 tabs 01/24/23 cephalexin 500 mg capsule 500 mg PO TID #21 caps 01/24/23 oxycodone 5 mg tablet 5 - 10 mg (1 - 2 x 5 mg) PO Q4H PRN PRN Pain Score 4-10 7 days #60 tabs 01/24/23 Hospital Course Operations total knee replacement Summary of Care Provided Hospital Course: The patient has with long-standing history of knee DJD and has failed conservative treatment. Patient wished to undergo elective robotic assisted total knee arthroplasty and underwent the aforementioned procedure on the admission date without complications. patient did receive pre-and postoperativeantibiotics which were discontinued within 23 hours postoperatively. patient did receive a spinal anesthesia and a adductor canal block and the pain was controlled postoperatively with p.o. and IV pain medication. There was minimal intraoperative blood loss he did receive 2 g of tranexamic acid and his vital signs and labs were stable postoperatively and patient did not require a blood transfusion. patient was seen by physical therapy and did progress with his ambulation. Postoperatively was started on both mechanical and chemical DVT prophylaxis for which patient will continue Eliquis 2.5 mg twice daily for 2 additional weeks post hospital discharge she will resume her Plavix after completion of her Eliquis. 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 Mepilex AG dressing will stay on for 72 hours postoperatively at which time patient will begin showering on postop day #3 with daily dressing changes. Encouraged patient to achieve full range of motion as soon as possible, Patient will start outpatient physical therapy and will follow-up in the office in 2 weeks for wound check. There is no intrahospital complications . Weight / BMI Weight Weight: 194 lb 0.108 oz Body Mass Index (BMI) 34.3 ABG / Lab / Microbiology Data 01/24/23 05:55 01/24/23 05:55 Laboratory: Laboratory Results - last 24 hr 01/24/23 05:55: WBC 11.2 H, RBC 3.40 L, Hgb 9.5 L, Hct 30.6 L, MCV 90.0, MCH 27.9, MCHC 31.0 L, RDW Std Deviation 41.4, RDW Coeff of Pepe 12.6, Plt Count 199,MPV 11.4, Sodium 135 L, Potassium 4.3, Chloride 109 H, Carbon Dioxide 23.0, Anion Gap 3 L, BUN 9, Creatinine 0.74, Estim Creat Clear Calc 61.54, Est GFR (MDRD) Af Amer 101, Est GFR (MDRD) Non-Af 84, BUN/Creatinine Ratio 12.1, [id number] H, Calcium 7.8 L Microbiology: Microbiology 01/11/23 15:06 Swab (Method) Nasal Screen MRSA/MSSA - Final Radiography Diagnostic Testing: Radiology Impression Knee X-Ray 01/23/23 10:22 IMPRESSION: Status post total knee replacement. There is good alignment. Postoperative soft tissue changes. Electronically Signed: Juan Antonio Becerra MD at 10:50 EDT Reading Location ID and State: [facility] / [place] , Service support , D/C Instructions Discharge Diet: No restrictions Call your doctor if you observe: Shortness of breath and Chest pain Additional Dressing/Incision Instructions: Ice and elevate lower extremities 2 weeks while not ambulating. Ambulation is encouraged. Weight bearing as tolerated. Use assistive devise for stability. Encourage FULL knee extension and flexion 1 time EVERY time you get up and down and MULTIPLE times per day. No showering 72 hours after surgery. Begin showering postop day #3. Remove the dressing prior to shower and gently wash with warm water and antibacterial soap then pat dry and place abdominal pad (or plain gauze) and ANETTE hose over top. This is to be done daily. Do not submerge for 3 weeks. If not showering daily after the initial 72 hours then you must clean incision and change dressing daily. Do not allow animals near the incision area. Keep clean. Follow anti-coagulation recommendations as prescribed. Do not take any NSAIDs while on blood thinner. May resume Plavix after completion of Eliquis the blood thinner. Do not take any additional narcotic pain medication other than what was prescribed on your surgery day without discussing with physician. Narcotic medication can be addictive. Do not drink alcohol while taking narcotics. Supplement narcotic prescription with acetaminophen 1000 mg 4 times a day. Start physical therapy. If you are not currently scheduled for physical therapy or you are unsure of appointment time please call office [facility] to arrange. Call Dr. Rawls with any concerns. Please Follow Up With: Michael Rawls DO When: 2 weeks Meaningful Use Info Meaningful Use Diagnoses (Choose all that apply): None applicable Discharge Plan Admission Admit Date/Time: 01/23/23 05:17 Primary Reason for Your Visit: Right total knee arthroplasty Attending Provider: Michael Rawls Primary Care Provider: Corina,Julio STATISTICAL MACHINE MECHANIC Discharge Orders/Prescriptions Prescriptions: New acetaminophen 500 mg Tablet 1,000 mg PO Q6H Qty: 100 0RF oxycodone 5 mg Tablet 5 - 10 mg PO Q4H PRN PRN (Reason: Pain Score 4-10) 7 Days Qty: 60 0RF cephalexin 500 mg capsule 500 mg PO TID Qty: 21 0RF Eliquis 2.5 mg tablet 2.5 mg PO BID Qty: 30 0RF Continued mometasone 50 mcg/actuation spray,non-aerosol 2 spray intranasal DAILY Rx Instructions: administer into each nostril amlodipine 5 mg tablet 7.5 mg PO DAILY mecobalamin (vitamin B12) 1,000 mcg tablet,disintegrating 1,000 mcg sublingual DAILY Rx Instructions: place tablet under tongue and allow to dissolve for at least30 secs before swallowing simvastatin 20 MG tablet 40 mg PO QHS Patient Comments: CHOLESTEROL LOWERING albuterol sulfate 1 INHALER inhaler 2 puff INHALATION Q4H PRN PRN (Reason: Shortness Of Breath) Patient Comments: BREATING fluoxetine 20 MG capsule 60 mg PO QHS Patient Comments: ANXIETY Dry Eye Relief 15 ML drops 1 drp OP 4X/DAY bupropion HCl 150 MG tablet extended release 24 hr 150 mg PO QHS ergocalciferol (vitamin D2) [Vitamin D2] 1,250 mcg (50,000 unit) Capsule 1,250 mcg PO WE colestipol 1 gram tablet 1 g PO PRN PRN (Reason: Diarrhea) Rx Instructions: avoid other meds one hour before and 4 hours after dicyclomine 20 mg tablet 20 mg PO BID pantoprazole 40 mg tablet,delayed release (DR/EC) 40 mg PO DAILY polyethylene glycol 3350 [Miralax] 17 gram/dose powder 4 g PO PRN PRN (Reason: Constipation) promethazine 25 mg tablet 25 mg PO Q6H PRN PRN (Reason: Nausea) Qty: 60 2RF Held Orencia 50 mg/0.4 mL syringe 50 mg subcut QMONTH Hold Instructions: Resume on 02/23/23. clopidogrel 75 MG tablet 75 mg PO DAILY Hold Instructions: Resume on 02/08/23. Resume day after completion of Eliquis Patient Comments: BLOOD THINNER leflunomide [Arava] 20 tablet 20 mg PO DAILY Hold Instructions: Resume on 02/06/23. Patient Comments: No Action acetaminophen [Tylenol] 325 mg tablet 500 mg PO Q6H PRN (Reason: Pain) Referrals / Follow Up: Julio Arriaga NP, STATISTICAL MACHINE MECHANIC-C [Primary Care Provider] - 01/24/23 0857 <Electronically signed by Michael Rawls DO> Cosigner Signature (if applicable): CC: [facility]; Dr. Michael Rawls DO~ Signed [facility] Work Phone: 1(802) 372-920206-29-2023 Discharge summary Author Michael Rawls [facility] January 24, 2023 8:55am Note Date/Time January 24, 2023 8:40 am [facility] Medical Records Department [address] [place] [address] Instructions for Home/Discharge Instructions 01/24/23838 MR#: [id number] Acct: [id number] Name: MARIMAR WANG Rep #:[id number] : 1960 62 From: Michael Rawls DO PCP: [facility] Ar[facility] Status:ADM I N Discharge Instructions Diet Discharge Diet: No restrictions Dressing / Incision Call your doctor if you observe: Shortness of breath and Chest pain Additional Dressing/Incision Instructions:: Ice and elevate lower extremities 2 weeks while not ambulating. Ambulation is encouraged. Weight bearing as tolerated. Use assistive devise for stability. Encourage FULL knee extension and flexion 1 time EVERY time you get up and down and MULTIPLE times per day. No showering 72 hours after surgery. Begin showering postop day #3. Remove the dressing prior to shower and gently wash with warm water and antibacterial soap then pat dry and place abdominal pad (or plain gauze) and ANETTE hose over top. This is to be done daily. Do not submerge for 3 weeks. If not showering daily after the initial 72 hours then you must clean incision and change dressing daily. Do not allow animals near the incision area. Keep clean. Follow anti-coagulation recommendations as prescribed. Do not take any NSAIDs while on blood thinner. May resume Plavix after completion of Eliquis the blood thinner. Do not take any additional narcotic pain medication other than what was prescribed on your surgery day without discussing with physician. Narcotic medication can be addictive. Do not drink alcohol while taking narcotics. Supplement narcotic prescription with acetaminophen 1000 mg 4 times a day. Start physical therapy. If you are not currently scheduled for physical therapy or you are unsure of appointment time please call office [facility] to arrange. Call Dr. Rawls with any concerns. Follow Up Care Please Follow Up With: Michael Rawls DO When: 2 weeks Test Results: Test results from this visit will be discussed in further detail at your follow- up appointment, if applicable. Discharge Plan Admission Admit Date/Time: 01/23/23 05:17 Primary Reason for Your Visit: Right total knee arthroplasty Attending Provider: Michael Rawls Primary Care Provider: Julio Arriaga NP Discharge Orders/Prescriptions Prescriptions: New acetaminophen 500 mg Tablet 1,000 mg PO Q6H Qty: 100 0RF oxycodone 5 mg Tablet 5 - 10 mg PO Q4H PRN PRN (Reason: Pain Score 4-10) 7 Days Qty: 60 0RF cephalexin 500 mg capsule 500 mg PO TID Qty: 21 0RF Eliquis 2.5 mg tablet 2.5 mg PO BID Qty: 30 0RF Continued mometasone 50 mcg/actuation spray,non-aerosol 2 spray intranasal DAILY Rx Instructions: administer into each nostril amlodipine 5 mg tablet 7.5 mg PO DAILY mecobalamin (vitamin B12) 1,000 mcg tablet,disintegrating 1,000 mcg sublingual DAILY Rx Instructions: place tablet under tongue and allow to dissolve for at least30 secs before swallowing simvastatin 20 MG tablet 40 mg PO QHS Patient Comments: CHOLESTEROL LOWERING albuterol sulfate 1 INHALER inhaler 2 puff INHALATION Q4H PRN PRN (Reason: Shortness Of Breath) Patient Comments: BREATING fluoxetine 20 MG capsule 60 mg PO QHS Patient Comments: ANXIETY Dry Eye Relief 15 ML drops 1 drp OP 4X/DAY bupropion HCl 150 MG tablet extended release 24 hr 150 mg PO QHS ergocalciferol (vitamin D2) [Vitamin D2] 1,250 mcg (50,000 unit) Capsule 1,250 mcg PO WE colestipol 1 gram tablet 1 g PO PRN PRN (Reason: Diarrhea) Rx Instructions: avoid other meds one hour before and 4 hours after dicyclomine 20 mg tablet 20 mg PO BID pantoprazole 40 mg tablet,delayed release (/EC) 40 mg PO DAILY polyethylene glycol 3350 [Miralax] 17 gram/dose powder 4 g PO PRN PRN (Reason: Constipation) promethazine 25 mg tablet 25 mg PO Q6H PRN PRN (Reason: Nausea) Qty: 60 2RF Held Orencia 50 mg/0.4 mL syringe 50 mg subcut QMONTH Hold Instructions: Resume on 02/23/23. clopidogrel 75 MG tablet 75 mg PO DAILY Hold Instructions: Resume on 02/08/23. Resume day after completion of Eliquis Patient Comments: BLOOD THINNER leflunomide [Arava] 20 tablet 20 mg PO DAILY Hold Instructions: Resume on 02/06/23. Patient Comments: No Action acetaminophen [Tylenol] 325 mg tablet 500 mg PO Q6H PRN (Reason: Pain) Referrals / Follow Up: Julio Arriaga NP, STATISTICAL MACHINE MECHANIC-C [Primary Care Provider] - 01/24/23 0855<Electronically signed by Michael Rawls DO>Michael Mitchellsunil BENAVIDES CC: STATISTICAL MACHINE MECHANIC-C Julio Arriaga ~ Signed [facility] Work Phone: 1(879) 981-813706-29-[address] [facility] January 24, 2023 8:39am Note Date/Time January 24, 2023 8:39 am [facility] Medical Records Department [address] [place] [address] Progress Note - Orthopedic 01/24/23 0837 MR#: [id number] Acct: [id number] Name: MARIMAR WANG Rep #:[id number] : 1960 62 From: Michael Rawls DO PCP: [facility] Status:ADM I N Location: [place] [address] Subjective Subjective Seen and examined. Doing well. Requesting to go home. She states she has no complaints no concerns and she is ambulating well. Objective Data Objective Data Vital Signs: Vital Signs Temp Pulse Resp BP Pulse Ox O2 Del Method O2 Flow Rate 97.9 F 74 16 119/65 93 Room Air 4 01/24/23 04:25 01/24/23 04:25 01/24/23 04:25 01/24/23 07:07 01/24/23 04:25 01/24/23 04:25 01/23/23 11:15 Oxygen Flow Rate (L/min) 4 Oxygen Delivery Method Room Air Weight: 194 lb 0.108 oz Body Mass Index (BMI) 34.3 Intake & Output: Intake and Output for Last 24 Hours 01/22/23 01/23/23 01/24/23 23:59 23:59 23:59 Intake Total 2856.5 / 3156.5 1741.66 / 1741.66 Balance 2856.5 / 3156.5 1741.66 / 1741.66 Lab / Micro Data 01/24/23 05:55 01/24/23 05:55 Labs: Laboratory Results - last 24 hr 01/24/23 05:55: WBC 11.2 H, RBC 3.40 L, Hgb 9.5 L, Hct 30.6 L, MCV 90.0, MCH 27.9, MCHC 31.0 L, RDW Std Deviation 41.4, RDW Coeff of Pepe 12.6, Plt Count 199,MPV 11.4, Sodium 135 L, Potassium 4.3, Chloride 109 H, Carbon Dioxide 23.0, Anion Gap 3 L, BUN 9, Creatinine 0.74, Estim Creat Clear Calc 61.54, Est GFR (MDRD) Af Amer 101, Est GFR (MDRD) Non-Af 84, BUN/Creatinine Ratio 12.1, [id number] H, Calcium 7.8 L Micro: Microbiology 01/11/23 15:06 Swab (Method) Nasal Screen MRSA/MSSA - Final Radiography Diagnostic Testing: Radiology Impression Knee X-Ray 01/23/23 10:22 IMPRESSION: Status post total knee replacement. There is good alignment. Postoperative soft tissue changes. Electronically Signed: Juan Antonio Becerra MD at 10:50 EDT , Physical Exam Extremity Extremity Narrative: Right knee dressing clean dry intact compartment soft neurovascular intact EHL tibialis anterior gastrocsoleus intact sensation light touch 2 out of 4 pedal pulse Assessment & Plan Assessment/Plan (1) S/P total knee arthroplasty: QUALIFIERS: Laterality: right Qualified Code(s): Z96.651 - Presence of right artificial knee joint PLAN: Postop day #1 right total knee arthroplasty. PT OT weightbearing as tolerated DVT prophylaxis Oxycodone Requesting to be discharged home she is doing very well and I will see any reason why not Discharge after a.m. physical therapy Follow-up in the office 2 weeks outpatient therapy already scheduled 01/24/23 0839 <Electronically signed by Michael Rawls DO> Cosigner Signature (if applicable): CC: ~ Signed [facility] Work Phone: 1(330) 960-822706-28-2023 Procedure [facility] 01-23-2023 History and physical note Author Michael Rawls [facility] January 23, 2023 7:40am Note Date/Time January 23, 2023 7:40 am [facility] Medical Records Department [address] [place] [address] History & Physical Exam 01/23/23 0739 MR#: [id number] Acct: [id number] Name: MARIMAR WANG Rep #:[id number] : 1960 62 From: Michael Rawls DO PCP: [facility] Arri[facility] Status:PRE I N Location: [facility] History and Physical Date of Admission: 01/23/23 [facility] [address] [place] [address] OFFICE VISIT Date of Service: 12/17/22 MR#: [id number] Acct: [id number] Name: MARIMAR WANG Rep #: [id number] : 1960 Provider: Dr. Michael Rawls DO Age/Sex: 62/F Location: [facility] Status: Signed Intake Intake Visit Reasons: RIGHT KNEE Chief Complaint: right knee Accompanied by: Daughter Is patient in pain?: Yes Pain scale (1-10): 8 Allergies doxycycline calcium [From Vibramycin] Allergy (Verified 12/06/22 10:48) Anaphylaxisdoxycycline hyclate [From Vibramycin] Allergy (Verified 12/06/22 10:48) Anaphylaxisdoxycycline monohydrate [From Vibramycin] Allergy (Verified 12/06/22 10:48) AnaphylaxisNSAIDS (Non-Steroidal Anti-Inflamma Allergy (Verified 12/06/22 10:48) Anaphylaxisduloxetine [From Cymbalta] Adverse Reaction (Verified 12/06/22 10:48) HEADACHE AND UPSET STOMACHhydrocodone bitartrate [From Vicodin] Adverse Reaction(Verified 12/06/22 10:48) STOMACH UPSEThydromorphone HCl [From Dilaudid] Adverse Reaction (Verified 12/06/22 10:48) Vomitingmorphine Adverse Reaction (Verified 12/06/22 10:48) Vomiting Medications albuterol sulfate 90 mcg/actuation aerosol inhaler 2 puff inhalation Q4H PRN PRNShortness Of Breath 03/13/15 [History Confirmed 12/17/22] clopidogrel 75 mg tablet 75 mg PO DAILY BLOOD THINNER 03/13/15 [History Confirmed 12/17/22] simvastatin 20 mg tablet 40 mg PO QHS CHOLESTEROL 03/13/15 [History Confirmed 12/17/22] fluoxetine 20 mg capsule 60 mg PO QHS MENTAL HEALTH 12/13/15 [History Confirmed 12/17/22] acetaminophen 325 mg tablet (Tylenol) 500 mg PO Q6H PRN Pain 07/12/17 [History Confirmed 12/17/22] bupropion HCl 150 mg 24 hr tablet, extended release 150 mg PO QHS MENTAL HEALTH 11/13/17 [History Confirmed 12/17/22] peg [id number] 1 %-0.2 %-0.2 % eye drops (Dry Eye Relief) 1 drp OP 4X/DAY DRY EYES 11/13/17 [History Confirmed 12/17/22] leflunomide 20 mg tablet (Arava) 20 mg PO DAILY 03/22/18 [History Confirmed 12/17/22] amlodipine 5 mg tablet 7.5 mg PO DAILY 08/15/22 [History Confirmed 12/17/22] mometasone 50 mcg/actuation nasal spray 2 spray intranasal DAILY 08/15/22 [History Confirmed 12/17/22] promethazine 25 mg tablet 25 mg PO Q6H PRN PRN Nausea #60 tabs 11/02/22 [Rx Confirmed 12/17/22] colestipol 1 gram tablet 1 g PO BID 11/05/22 [History Confirmed 12/17/22] ergocalciferol (vitamin D2) 1,250 mcg (50,000 unit) capsule (Vitamin D2) 1,250 mcg PO QWEEK 11/05/22 [History Confirmed 12/17/22] polyethylene glycol 3350 17 gram/dose oral powder (Miralax) 4 g PO DAILY #238 grams 11/13/22 [Rx Confirmed 12/17/22] dicyclomine 20 mg tablet 20 mg PO BID #60 tabs 11/21/22 [Rx Confirmed 12/17/22] pantoprazole 40 mg tablet,delayed release 40 mg PO DAILY #90 tabs 12/05/22 [Rx Confirmed 12/17/22] mecobalamin (vitamin B12) 1,000 mcg disintegrating tablet,sublingual 1,000 mcg sublingual DAILY 12/06/22 [History Confirmed 12/17/22] abatacept 50 mg/0.4 mL subcutaneous syringe (Orencia) 50 mg subcut 12/17/22 [History Confirmed 12/17/22] [facility] Medical History Acute ethmoidal sinusitis, unspecified Acute frontal sinusitis, unspecified Acute maxillary sinusitis, unspecified Acute pharyngitis, unspecified Ambulates with cane Anemia Anxiety Arthritis Asthma Back pain Cardiology follow-up encounter Chest pain Chronic cough Chronic diastolic CHF (congestive heart failure) Congenital cataract Coronary artery stenosis Depression Difficulty swallowing TY (dyspnea on exertion) Dry eye Fatigue Former smoker Hip pain History of CHF (congestive heart failure) History of echocardiogram History of hiatal hernia History of IBS History of irregular heartbeat History of pain when walking History of partial replacement of left hip joint using bipolar prosthesis History of stress test HLD (hyperlipidemia) Hypertension IBS (irritable bowel syndrome) Injury of back Insomnia Intermittent palpitations Iron malabsorption Limb weakness Loose, teeth Lumbar spondylosis Lung disease Nausea Osteoarthritis Osteoporosis Post-menopausal PVCs (premature ventricular contractions) Regular astigmatism, bilateral Shortness of breath on exertion SOB (shortness of breath) TIA (transient ischemic attack) URI (upper respiratory infection) Vitamin D deficiency Wears glasses Surgical History H/O adenoidectomy H/O hernia repair H/O shoulder surgery History of cardiac catheterization History of Vanessa fundoplication History of tonsillectomy History of total left knee replacement Hx of section S/P repair of paraesophageal hernia Family History Mother Asthma Hypertension Kidney diseaseFather Asthma Myocardial infarctionDaughter Asthma Diabetes HypertensionSister Asthma Hypertension Social History Smoking Status: Former smoker quit date: 07/29/13 alcohol intake: never HPI RIGHT KNEE Details: Parts of this documentation were recorded by a scribe, this documentation accurately reflects the service provided and the decisions made by me, Dr. Michael Rawls, DO 12/17/22 0807. MARIMAR WANG is a 62 year old F here today for right knee pain. She was referred by Pablo Cruz to discuss right TKA. She has had right knee pain for many years. She did trial steroid injections and lubricant injections but this was not effective and she didn't wish to trial this at this time. She has triedknee bracing and PT which did not help She thinks therapy caused her pain to become worse. She did have xrays and MRI of the right knee recently which are inthe system to review. She did have a right knee arthroscopy about [address] Knott. She does have RA and fibromyalgia. and she is on Orencia, leflunomide and plavix. Ortho Exam General General: Yes no acute distress Neurologic: Yes alert and Yes oriented x3 Psychologic: Yes reasonable and appropriate Right Knee Skin/Wound: Yes CDI, No erythema, No ecchymosis and No swelling Homans Sign: No Knee ROM: No ROM-Extension -20 to 0 (lacking 4 ) and No ROM-Flexion 0-140 (80) Examination: Yes Med jt line tenderness and Yes TTP Pes Anserine Stability: NML: Anterior Drawer, NML: Posterior Drawer, NML: Valgus 0, NML: Valgus 30, NML: Varus 0 and NML: Varus 30 Patella Translation: 1 Patella Grind: No KNEE: 2/4 pulses Left Knee Patella Translation: 1 Head: Normocephalic Atraumatic Chest: symmetrical rise, non-labored breathing, no audible wheeze Abdomen: no guarding, non-rigid Supplemental Info 11/29/2022 MRI right knee:. Suspect a complex tear of the anterior horn of the medial meniscus. Approximately 3.5 mm of peripheral extrusion of the body segment of the medial meniscus. 2. Background of moderate tricompartmental osteoarthritic changes, worse at the medial femorotibial compartment where there are areas of full- thickness chondral loss on both sides of the articulation. Coding Level of Care Code Off vis,est,level 3 Diagnoses Right knee DJD M17.11 Rheumatoid arthritis M06.9 Fibromyalgia M79.7 Assessment and Plan Assessment and Plan (1) Right knee DJD: Status: Acute (2) Rheumatoid arthritis: Status: Acute (3) Fibromyalgia: Status: Acute Plan Patient educated that she does have moderate OA of the right knee. Treatment options are do nothing or bracing or PT or steroid injection or viscosupplementation or TKA. she feels she is ready for joint replacement. she had it on the other knee in the past and did well. She is at increased risk of infection due to her rheumatoid arthritis and corresponding medications, I did savings counselor her off on this. She is at risk for continued knee pain after joint replacement secondary to her rheumatoid arthritis and fibromyalgia she understands this, she is at increased risk for postoperative knee stiffness secondary to her preoperative stiffness, and therefore I stressed the importance of pre and postoperative physical therapy. Risks, benefits and alternatives of surgery reviewed including but not limited to bleeding, infection, nerve, artery and/or tissue damage, fracture, VTE, mechanical feel of the knee, continued pain, stiffness and expected post-operative course. DIsscussed the need?She will need clearance to stop the Plavix7 days prior to surgery and will also need to Stop the Orencia 5 weeks prior to surgery and 4 weeks post op. She will need pre-op and post op PT. She does have stairs at home but also has help at home, will schedule surgery for outpatient surgery. Discussed IOVERA and she wishes to proceed with this if approved by insurance. Follow up in 2 weeks post op or sooner if pain, swelling, numbness or associatedsymptoms, or concerns develop. All questions answered. Patient in agreement of plan. Tentative surgery date week of January 14 or January 21 12/17/22 1131 <Electronically signed by Michael Rawls DO> Date Michael Rawls DO Cosigner Signature: Date (if applicable) I have examined the patient and the H&P has been reviewed. There are no clinicalchanges since date of exam. 01/23/23 0740 <Electronically signed by Michael Rawls DO> Cosigner Signature (if applicable): CC: [facility] Arriaga; Dr. Michael Ralws DO~ Signed [facility] Work Phone: [phone] Miscellaneous Notes* Telephone Encounter - Elisabet Armenta Bellows Filler - 01/02/2023 11:43 AM EDT Zoledronic Acid 5mg PRECERT NOT REQUIRED [id number] 01.02.23 - 01.03.24 for 1 visit [facility] Dual/Portal Elisabet Armenta Bellows Filler documented in this encounterC[facility]05-31-2023 Miscellaneous Notes* Telephone Encounter - Mary Vicente LPN - 12/26/2022 2:48 PM EDT Patient notified and voices understanding. No further questions at this time. Mary Vicente LPN * Telephone Encounter - Jennifer Arias MD - 12/26/2022 11:51 AM EDT Ok for reclast Ok to hold orencia, as advised by ortho RA has been stable for a while Hold one week arava starting a day before surgery * Telephone Encounter - Mary Vicente LPN - 12/26/2022 10:44 AM EDT Patient calling to notify you that she is having a right knee replacement on 01/23/2023. Her surgeonDr. Lorenzo would like her to stop the Orencia a month before surgery and a month after and resume inAugust. Patient wants to know if she can continue with the Reclast, is scheduled January 08? Mary Vicente LPN documented in this encounterCleveland Clinic [facility]05-30-2023 Miscellaneous Notes* Telephone Encounter - Candace Alvarenga MA - 12/25/2022 2:11 PM EDT Patient sent a [employer] message requesting the following refill. This prescription has already been requested on 12-25-[address] Arias. Duplicate request Requested Prescriptions Pending Prescriptions Disp Refills leflunomide (ARAVA) 20 mg tablet 30 tablet 2 Sig: Take 1 tablet by mouth once daily. Patient last appointment: 10/18/2022 Next Appointment: no future appointment is scheduled Patient Phone numbers: [phone] (home) Request is for script(s) to be escript to pharmacy. Candace Alvarenga MA documented in this encounterCleveland Clinic [facility]05-30-2023 Miscellaneous Notes* Telephone Encounter - Mary Vicente LPN - 12/25/2022 1:07 PM EDT Patient sent a [employer] message requesting the following refill. Requested Prescriptions Pending Prescriptions Disp Refills leflunomide (ARAVA) 20 mg tablet [Pharmacy Med Name: LEFLUNOMIDE 20 MG TABLET] 30 tablet 2 Sig: Take 1 tablet by mouth once daily. Patient last appointment: 10/18/2022 Next Appointment: Visit date not found Patient Phone numbers: [phone] (home) Request is for script(s) to be escript to pharmacy. Mary Vicente LPN documented in this encounterCleveland Clinic [facility]04-11-2023 [facility]04-11-[facility]04-11-20[facility]04-06-2023 Miscellaneous Notes* Telephone Encounter - Tracy Jerry LPN - 11/01/2022 8:45 AM EDT documented in this encounterC[facility] Clinic [facility]03-29-2023 Miscellaneous Notes* Telephone Encounter - Elisabet Armenta Bellows Filler - 10/24/2022 11:51 AM EDT Ori APPROVED [id number] 09.06.22 - 09.06.23 [employer] Medicare Portal Elisabet Armenta Bellows Filler documented in this encounterCleveland Clinic [facility]03-23-2023 History of Present illness Narrative* Jennifer Arias MD - 10/18/2022 12:03 PM EDT Images from the original note were not included. RHEUMATOLOGY PROGRESS NOTE HPI: Marimar Wang is a 62 year old female seen for RA, osteoporosis. Was diagnosed with TIA. Holter monitor for a fib. Saw neurology and cardiology Was diagnosed with Crohn's disease??. [facility]. Getting nausea, cramps, diarrhea. Scheduled for EGD, C scope in november. Several falls and doing PT Orencia IV every 4 weeks, Arava 20 mg daily Reclast IV yearly, Vit D 50,000 units daily Reclast last 01/25/2022 Skipped recent Orencia due to COVID infection 05/16/2022 In hospital recently, memory issues, new asphasia, balance issues, elevated BP (258/122). Possible stroke? Started on Plavix. Stopped her benadryl and Flexeril. Still on Lyrica per pain mgmt 06/20/22 MRI brain did show some ischemia but non-specific. ECHO- no abnormalities. CV carotid study and MR angiography showed Moderate irregular mixed plaque is present bilaterally. Has an appointment with neurology scheduled for 08/08/2022 in [place]. Plans on possibly scheduling appointment with a different neurologist closer to home. Fell yesterday, landed on left hip- increased pain, bruising on left hip Able to ambulate with a cane and limp Tripped on the sidewalk No trauma to head No LOC Pain today 17/05 all over, from fall Rash on fingers- itching, using otc antibiotic ointment Swelling- in bilateral fingers AM stiffness- 2-3 hours Has been off from Orencia since April 2022 - will call to schedule next Orencia infusion Reports COVID-19 diana pappas Reports a rash on her right thumb and left 2nd and 3rd finger x a few months. Rash is intensely itchy at times. Worse after hands are in water. She has been using topical triple antibiotic ointment. No nail changes. Jul 2021 - fell on ice fracture NOF. Also had stress fracture which could have been old. Had hemiarthroplasty. Recovering. COVID 04/06/2021, whole month, COVID pneumonia, pleurisy, bronchitis Following closely with pulmonology, recent PFTs are stable Seeing pain mgmt for low back and hips, off gabapentin- now on Lyrica 150 mg bid. She gets procedures for her low back HISTORY REVIEWED (electronic chart updated): PAST MEDICAL HISTORY Diagnosis Date Asthma Homer lesion, acute 01/30/2019 Carotid artery stenosis bilateral- US in [facility] COPD (chronic obstructive pulmonary disease) ([facility]) Depression Diverticulosis Fibromyalgia GERD (gastroesophageal reflux disease) GI bleed 02/2019 Hiatal hernia Repaired 05/07/19 Hyperlipidemia Hypertension Insomnia Iron deficiency anemia Osteoarthritis Osteoporosis Piriformis syndrome PVC's (premature ventricular contractions) Rheumatoid arthritis (HCC) Sjogren's disease (HCC) Vitamin D deficiency PAST SURGICAL HISTORY Procedure Laterality Date ARTHRP KNE CONDYLE&PLATU MEDIAL&LAT COMPARTMENTS 2009 Total left knee surgery COLONOSCOPY FLX DX W/COLLJ SPEC WHEN PFRMD 04/11/2015 diverticulosis, no specimens collected Dr. Tapia COLONOSCOPY FLX DX W/COLLJ SPEC WHEN PFRMD 09/23/[address] Tapia EGD 01/30/2019 large hiatal hernia with Homer erosions, likely source of GI bleed Dr. Rudolph EGD 09/15/2007 patulous GE junction, nonobstructive Schatzki's ring, bile reflux of stomach, hiatal hernia, neg H pylori EGD EUS N/A 07/07/2020 3 cm sliding hiatal hernia, no obst Schatzki's ring, mild duodenitis, mild/moderate gastritis EGD TRANSORAL BIOPSY SINGLE/MULTIPLE 02/17/2020 retained contents in stomach, bxs negative Dr. Pat ESOPHAGOGASTRODUODENOSCOPY TRANSORAL DIAGNOSTIC 05/07/2016 sliding hiatal hernia, no source of GI bleed Dr. Laureano ESOPHAGOGASTRODUODENOSCOPY TRANSORAL DIAGNOSTIC 09/23/2017 normal, bxs negative Dr. Tapia GI TRC IMG INTRALUMINAL ESOPHAGUS-ILEUM W/I&R 10/04/2017 Normal smallbowel Capsule endosocpy HIATAL HERNIA REPAIR HX 04/2019 LAPS RPR PARAESPHGL HRNA INCL FUNDPLSTY W/MESH 05/07/2019 Dr. Pat MRI BRAIN W/O CONTRAST 07/20/2011 PAST SURGICAL HISTORY OF 1983, 1986 2 C Sections PAST SURGICAL HISTORY OF 1982 Left shoulder, has screw in shoulder FAMILY HISTORY Problem Relation Age of Onset Hypertension Mother Stroke Mother Cataract Mother Asthma Mother other (ESRD) Mother Heart Father Glaucoma Father Ischemic Heart Disease Father age 42 from [place] Hypertension Sister other (Other) Brother 18 MVA Depression Daughter other (PTSD) Daughter other (Anxiety) Daughter other (svt) Daughter Diabetes Daughter Social History Tobacco Use Smoking status: Former Packs/day: 1.00 Years: 31.00 Pack years: 31.00 Types: Cigarettes Quit date: 01/01/2015 Years since quittin.8 Smokeless tobacco: Never Tobacco comments: ETS: Father in childhood home. Active smoker in current home. Vaping Use Vaping Use: Never used Substance Use Topics Alcohol use: No Drug use: Never Current Outpatient Medications Medication Sig colestipol (COLESTID) 1 gram tablet amLODIPine (NORVASC) 5 mg tablet Take by mouth. Takes 7.5 mg each day leflunomide (ARAVA) 20 mg tablet Take 1 tablet by mouth once daily. promethazine (PHENERGAN) 25 mg tablet Take 1 tablet by mouth every 6 hours as needed for nausea/vomiting. clopidogrel (PLAVIX) 75 mg tablet Take 75 mg by mouth once daily. FLUoxetine (PROZAC) 20 mg capsule Take 3 capsules by mouth once daily. simvastatin (ZOCOR) 40 mg tablet Take 1 tablet by mouth daily at bedtime. abatacept/maltose (ORENCIA, WITH MALTOSE, INTRAVENOUS) Inject intravenously. albuterol HFA (VENTOLIN HFA) 90 mcg/actuation inhaler Inhale 2 Puffs as instructed every 4 hours asneeded for wheezing/shortness of breath. (Patient taking differently: Inhale 2 Puffs as instructed every 4 hours as needed for wheezing/shortness of breath. As needed) furosemide (LASIX) 40 mg tablet Take 1 tablet by mouth once daily. mometasone (NASONEX) 50 mcg/actuation nasal spray Use 2 Sprays in the nose once daily. Rinse mouth after use. acetaminophen (TYLENOL) 325 mg tablet Take by mouth every 6 hours as needed. albuterol (PROVENTIL) 2.5 mg /3 mL (0.083 %) nebulizer solution Use 3 mL via nebulizer every 6 hours as needed for Wheezing/Shortness of Breath. >Nebulizer For Home Nebulizer for home use. Diagnosis: Moderate persistent asthma with acute exacerbation and pneumonia pregabalin (LYRICA) 150 mg capsule Take 1 capsule by mouth twice daily for 180 days. (Patient not taking: Reported on 10/18/2022) buPROPion XL (WELLBUTRIN XL) 150 mg 24 hr tablet Take 1 tablet by mouth once daily. aspirin 81 mg cap Take by mouth. (Patient not taking: Reported on 06/26/2022) albuterol (PROVENTIL) 2.5 mg /3 mL (0.083 %) nebulizer solution Use 3 mL via nebulizer every 4 hours as needed for wheezing/shortness of breath. Use over 5-15minutes. hyoscyamine (LEVSIN) 0.125 mg tablet Take 1 tablet by mouth every 6 hours as needed. No current facility-administered medications for this visit. ALLERGIES Allergen Reactions Nsaids (Non-Steroid* Anaphylaxis Had anaphylactic reaction to Aleve Vibramycin [Doxycyc* Anaphylaxis Cymbalta [Duloxetin* Intolerance Headaches Dilaudid [Hydromorp* Vomiting Horse Serum [Other] Morphine Vomiting Vicodin [Hydrocodon* Vomiting Can take if given antiemetic at same time History Review: I have reviewed and modified as needed, the following during this visit: Allergies,Past Medical History, Past Surgical History, Past Family History, Past Social History. Interval Review of Systems CONSTITUTIONAL: Recent Weight change: No Fever: No EYES: Dryness in nose: No Dryness of mouth: No Oral ulcers: No CARDIOVASCULAR: Pain in chest: No RESPIRATORY: Shortness of breath: No Cough: No GASTROINTESTINAL: Nausea: No Vomiting: No Changes in bowel movements: No Jaundice: No Heartburn: No MUSCULOSKELETAL: Per HPI INTEGUMENTARY: Rash: Yes HEMATOLOGIC/LYMPHATIC: Anemia: No NEUROLOGICAL SYSTEM: Headaches: No Sensitivity or pain of hands and/or feet: No PSYCHIATRIC: Anxiety: No Poor sleep: No Pulse 71 Temp (!) 35.6 C (96 F) Ht 161.3 cm (5' 3.5) Wt 87.5 kg (193 lb) SpO2 96% BMI 33.65 kg/m Physical Exam GENERAL: Well appearing, alert, comfortable, in no acute distress, well- hydrated, well nourished. HEENT: Negative for external ears normal. Canals are clear. Both TMs visualized and are normal. EyeExam normal. External nose normal, no nasal ulcer or throat ulcer. NECK: NECK Supple, no adenopathy; thyroid symmetric, normal size, no bruits CARDIAC: regular rate and rhythm, No murmur asculated., and Equal peripheral pulses RESPIRATORY: Lungs clear to auscultation. No wheezing, rhonchi, rales VASCULAR: RRR without murmur, gallop, or rubs. No ectopy. NEURO: Motor and sensory exam normal MOTOR: Normal; including tone, gait, stressed gait, power and coordination. SKIN: Negative for alopecia, malar rash, skin lesion, skin ulcer, pits, thickening, color changes, telangiectasias, nail changes, nail ridging, nail pitting, onycholysis. Maculopapular rash on left second and third fingers, as well as the right 1st finger MUSCULOSKELETAL: Left 3rd PIP tenderness Limited range of motion of left hip secondary to pain Lateral aspect of the left upper thigh is tender to palpation Labs: 05/2022 Cr 0.7 LFT normal CBC normal 10/2021 Creatinine0.63 Liver enzymes normal CRP normal CBC normal ESR 12 Serology: RF positive, CCP positive Radiology: IMPRESSION: Large hiatal hernia. Again seen is mild, diffuse bronchial wall thickening. Interval development of multifocal bilateral groundglass attenuation airspace opacities within both lungs, concerning for multifocal pneumonia. Interval follow-up examination after treatment is recommended in order to ensure resolution. Sequela of remote granulomatous disease. Interval development of tiny pulmonary nodules, measuring up to 2 mm in size. Incidental Finding: No follow-up imaging for this/these incidentally detected lung nodule(s) is recommended. If there are risk factors for lung malignancy, a follow-up chest CT exam could be obtained in 12 months. Interval development of anterior mediastinal lymphadenopathy. IMPRESSION: MODERATE TO MARKED OSTEOARTHRITIS OF THE PATELLOFEMORAL AND MEDIAL COMPARTMENT. NONDISPLACED MEDIAL MENISCUS TEAR. PARTIALLY RUPTURED MATTHEW'S CYST. Impression IMPRESSION: Mild spondylotic changes as detailed noting multilevel facet arthropathy, most pronounced at L4-5 and L5-S1. No significant canal or foraminal narrowing. Anatomic Thoracic/Lumbar Variant: None. L4-5 is considered the level of the iliac crest and assume there are 5 lumbar-type vertebrae. 07/19 - IMPRESSION: 1. Osteoporosis. 2. Osteopenia in the right hip/femoral neck. LUMBAR SPINE: The bone mineral density from L1 through L4 is 0.767 grams per square centimeter which yields a T-score of -2.5. There has been an 8.9% statistically significant interval increase in bone mineral density. RIGHT HIP: The bone mineral density of the total region of the hip is 0.824 grams per square centimeter which yields a T-score of -1.0. RIGHT FEMORAL NECK: The bone mineral density of the femoral neck is 0.710 grams per square centimeter which yields a T-score of -1.3. 10-year Fracture Risk (FRAX): Major osteoporotic fracture risk 25% Hip fracture risk is 2.4% 10/18 Electrodiagnostic impression: This is a normal electrodiagnostic study of the right upper and right lower limb. There is no electrodiagnostic evidence for peripheral neuropathy, cervical radiculopathy or lumbosacral radiculopathy. ANCA neg ASSESSMENT: No diagnosis found. 62-year-old woman is here for follow-up. Patient has seropositive rheumatoid arthritis, erosive osteoarthritis and osteoporosis. She was on Humira and Arava however discontinued due to being sick. Patient was switched to Orencia infusions. Had been doing well on combination Orencia IV every 4 weeks infusions and Arava 20 mg daily. Has not had Orencia IV infusion since 05/19 due to COVID-19 infection. She plans on calling today to schedule next infusion soon. Bone density shows improvement since starting Reclast. BMD 04/2020 shows osteoporosis with T-score -2.8. Would like her to continue Reclast yearly infusions. S/p Reclast 02/2018, 05/2019, 12/2020. Would like her to have 1 additional dose 12/2021, obtain bone density 04/2022 and then consider drug holid ay. Recheck Vit D level with next infusion. If necessary, resume vitamin D 50,000 units weekly. BMD ordered and patient will schedule. Patient said she saw pulmonology, was told she did not have RA-ILD. 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 Could consider Covid recover clinic Following with cardiology for chronic diastolic heart failure, current therapy includes Lasix 40 mgdaily. Needs follow up appointment. We discussed about high alkaline phosphatase which is coming from both liver and bone. Discussed about the importance of keeping her cholesterol levels normal. Low vitamin D and osteoporosis are other causes for high alkaline phosphatase. Check vit D. Vanessa fundoplication completed, doing better. She has had left trochanteric bursitis in past. Recommend exercises and stretching. Injections can be considered in the future if needed. She is seeing spine and pain management and receiving procedures in her low back Patient reports new onset asphasia, memory issues, and balance issues. 06/20/22 MRI brain did show some ischemia but non-specific. ECHO- no abnormalities. CV carotid study and MR angiography showed Moderate irregular mixed plaque is present bilaterally. Recently started on Plavix. Has an appointment with neurology scheduled for 08/08/2022 in [place]. Patient has erythematous scaling lesions noted to her fingers with extreme itching, looks suspicious for eczema. Prescription given for hydrocortisone topical cream. If no improvement can discuss with PCP. PLAN: Recommend restarting Orencia IV every 4 weeks. not had for a few months. May need change in treatment if IBD confirmed. Patient will call to schedule next Orencia infusion Continue Arava 20 mg daily For osteoporosis, continue Reclast. May need to switch to Prolia or Forteo. Need PTH. Scheduled forReclast in December. Last BMD shows high FRAX score. Labs every 3 months with infusions There are no Patient Instructions on file for this visit. Jennifer Arias MD documented in this encounterC[facility]03-22-2023 [facility]02-24-[facility]23 Miscellaneous Notes* Telephone Encounter - Candace Alvarenga MA - 09/21/2022 11:00 AM EST Pharmacy faxed requesting the following refill. Requested Prescriptions Pending Prescriptions Disp Refills leflunomide (ARAVA) 20 mg tablet [Pharmacy Med Name: LEFLUNOMIDE 20 MG TABLET] 30 tablet 2 Sig: Take 1 tablet by mouth once daily. Patient last appointment: 06/26/2022 Next Appointment: 10/18/22 Patient Phone numbers: [phone] (home) Request is for script(s) to be escript to pharmacy. Candace Alvarenga MA documented in this encounterCleveland Clinic [facility]02-10-2023 Miscellaneous Notes* Telephone Encounter - Sarah Vital RN - 09/07/2022 3:41 PM EST Form faxed back to [employer] today by providers nurse. * Telephone Encounter - Kari Calderon LPN - 09/05/2022 4:23 PM EST rec'd from [employer]. * Telephone Encounter - Sarah Vital RN - 09/05/2022 4:07 PM EST Radha with [employer] for [facility] called in and reports they have faxed over the Medical Attestation forms again to fax # [phone]. She states they just need a signature and then faxed back to fax # [phone]. documented in this encounterCleveland Clinic [facility]ucl[facility]02-09-2023 Consult note Author Acute Doctor [facility] September 06, 2022 10:33am Note Date/Time September 06, 2022 1 0:34am [facility] Medical Records Department [address] [place] [address] Telemedicine Confirmation Receipt 09/06/22 MR#: [id number] Acct: [id number] Name: MARIMAR WANG Rep #:[id number] : 1960 62 From: Acute Doctor PCP: [facility] Arriola Status:REG C LI [facility] has confirmed receipt of a request for visit. This document confirms receipt of the order initiating the consult. To find the results of the consultation, please view the patient's reports for the scanned Telemed Consult. [facility] Work Phone: [phone]) 310-471101-17-2023 Miscellaneous Notes* Telephone Encounter - Mandy Buck LPN - 08/14/2022 11:30 AM EST Last office visit: 05/17/22 Next appointment scheduled: No future appointments scheduled at this time. Patient phones requesting refills as follows: Requested Prescriptions Pending Prescriptions Disp Refills promethazine (PHENERGAN) 25 mg tablet 90 tablet 0 Sig: Take 1 tablet by mouth every 6 hours as needed for nausea/vomiting. Please review and advise. Mandy Buck LPN documented in this encounterC[facility]-05-[facility]23 Instructions* Patient Instructions* Leilani Colmenares APRN.TRACY - 08/02/2022 11:12 AM EST Activity as tolerated Use Ice and/or heat as tolerated as needed documented in this encounterCleveland [facility]01-05-2023 History of Present illness Narrative* Elisabet Landin MA - 08/02/2022 10:49 AM EST Review of Systems Constitutional: Negative for activity change, chills, fever and unexpected weight change. Gastrointestinal: Negative for bowel retention or incontinence Genitourinary: Negative for difficulty urinating. Negative for bladder retention or incontinence Musculoskeletal: Positive for arthralgias, back pain, gait problem, joint swelling, myalgias, neck pain and neck stiffness. Neurological: Positive for weakness. Negative for numbness and headaches. Psychiatric/Behavioral: Positive for sleep disturbance. Negative for dysphoric mood and suicidal ideas. The patient is nervous/anxious. * Leilani Colmenares APRN.TOBACCO SAMPLER - 08/02/2022 10:45 AM EST Images from the original note were not included. [facility] Today's Date: 08/01/2022 Last Visit: 02/01/22 Name: Marimar Wang : 1960 Chief complaint: Low Back Pain History of Present Illness: Since last encounter, Marimar Wang; reports that the chronic problem(s) detailed above are Worse. Patient underwent repeat diagnostic lumbar MBB B/L L3/4, L4/5, L5/S1 on 02/28/[address] Mitchell with no relief. She unfortunately no showed for her follow up appt post injection to evaluate her response. She had her initial diagnostic lumbar MBB on 07/12/21 with 100% pain relief. Unfortunately she did not follow up after her injection. States she then had Covid in Apr or May. She also had a CVA recently. Now has speech difficulties (but has been advised due to medications). She has evaluation with Neurology 08/10/21 and cardiology on 08/10/21. Reports she is having frequent falls since this past 2021, after having COVID. She is no longer on Flexeril. She continues her Lyrica. Pain Description: Timing: constant Character: Stabbing, Aching and Dull, occasionally has spasms with activity. Primary Location: Low back Radiation: none Exacerbating factors: unable to pinpoint exacerbating factors/positions Relieving factors: unable to pinpoint positions/factors that are mitigating Interferes with: physical activity, cooking and household cleaning The patient reports 5-6 hours of uninterrupted sleep per night The patient denies difficulty with bowel or bladder control, unintentional weight loss, fevers, chills, or night sweats and arm or leg weakness. Recall: Current Status: INTAKE PAIN ASSESSMENT 07/17/2022 08/02/2022 Are you having pain associated with your visit today? No Yes, Provider notified Pain Scales Verbal (Numeric Rating or Visual Analog Scale) Verbal (Numeric Rating or Visual Analog Scale) Pain Level 0 7 Pain Location - Back-Lower Description - Aching;Stabbing Duration Amount of Time - - Duration Units - Years Frequency - Continuous Intervention/Comfort measure - Reposition;Relaxation;Positioning Comments - - Pain Assessment Assessment - Current Pain Medications: Opioids: NSAIDS: Anti-depressants: Wellbutrin, prozac Anti-convulsants: Lyrica 150mg BID Muscle relaxants: Flexeril 10mg BID Others: Tylenol Analgesia: adequate Current Anti-Coagulant Use: Yes: Plavix Risk Assessment: BHAVANA-7: No flowsheet data found.(0-4) minimal anxiety, (5-9) mild anxiety, (10-14) moderate anxiety, (15-21) severe anxiety PHQ-9: PHQ-9 08/04/2021 08/04/2021 10/02/2021 Score 8 8 8 (0-4) minimal depression, (5-9) mild depression, (10-14) moderate depression, (15-19) moderately severe depression, (20-27) severe depression Compliance: PDMP website checked and validated. All prescriptions have been APPROPRIATELY filled. No suspiciousactivity was identified. 08/01/2022 by Leilani Colmenares APRN.TOBACCO SAMPLER Allergies: ALLERGIES Allergen Reactions Nsaids (Non-Steroid* Anaphylaxis Had anaphylactic reaction to Aleve Vibramycin [Doxycyc* Anaphylaxis Cymbalta [Duloxetin* Intolerance Headaches Dilaudid [Hydromorp* Vomiting Horse Serum [Other] Morphine Vomiting Vicodin [Hydrocodon* Vomiting Can take if given antiemetic at same time Data Reviewed: Reviewed personally on today's date 08/02/2022 Relevant Imaging: MRI Spine Report MRI LUMBAR SPINE WO IVCON Exam End: 07/05/2021 3:27 PM (Final result) Narrative: * * *Final Report* * * DATE OF EXAM: Jul 05 2021 3:27PM [id number] - MRI LUMBAR SPINE WO IVCON / PROCEDURE REASON: Spinal stenosis of lumbar region without neurogenic claudication * * * * Physician Interpretation * * * * EXAMINATION: MRI LUMBAR SPINE WO IVCON CLINICAL HISTORY: Spinal stenosis of lumbar region without neurogenic claudication TECHNIQUE: Routine lumbosacral spine MR protocol without gadolinium. MQ: [id number] COMPARISON: None available. RESULT: Counting reference: Lumbosacral junction. For the purposes of this report, L4-5 is considered the level of the iliac crest and assume there are 5 lumbar-type vertebrae. Anatomic variant: None. Localizer images: No additional findings. Alignment: Trace grade 1 degenerative anterolisthesis of L4 on L5 related to facet arthropathy. Alignment otherwise maintained. Mild multilevel disc desiccation, most prominent at T11-12, L4-5, and L5-S1. Bone marrow signal/fracture: Minimal marrow edema at the superior endplate of T11, likely degenerative. No evidence of pathologic marrow infiltration. No evidence of prior fracture. Conus: The conus terminates at L1 and is within normal limits of signal intensity and morphology. Paraspinal soft tissues: Paraspinal soft tissues are within normal limits. Lower thoracic spine: At T10-11, canal and foramina are patent. At T11-12, mild disc bulge and superimposed central small extrusion with slight inferior extension, with mild canal narrowing. Foramina are patent. T12-L1: Canal and foramina are patent. L1-L2: Canal and foramina are patent. L2-L3: Canal and foramina are patent. Left worse than right facet arthropathy. L3-L4: Canal and foramina are patent. Bilateral facet arthropathy. L4-L5: Mild disc bulge with slight posterior disc uncovering. Moderate bilateral facet arthropathy. Spinal canal is patent. Left foramen is patent. Mild right foraminal narrowing. L5-S1: Canal and foramina are patent. Moderate left and mild right facet arthropathy. Sacrum and iliac wings: Mild bilateral sacroiliac joint degenerative changes with anterior osteophyte formation. Otherwise unremarkable. Impression: IMPRESSION: Mild spondylotic changes as detailed noting multilevel facet arthropathy, most pronounced at L4-5 and L5-S1. No significant canal or foraminal narrowing. Anatomic Thoracic/Lumbar Variant: None. L4-5 is considered the level of the iliac crest and assume there are 5 lumbar-type vertebrae. Bike Mechanic: SABINO Transcribe Date/Time: Jul 05 2021 4:28P Dictated by : VIRIDIANA LEW MD This examination was interpreted and the report reviewed and electronically signed by: VIRIDIANA LEW MD on Jul 05 2021 4:36PM EST Recent labs: CMP: Glucose 83 07/17/2022 BUN 8 07/17/2022 Creatinine 0.67 07/17/2022 Sodium 137 07/17/2022 Potassium 4.1 07/17/2022 Chloride 100 07/17/2022 CO2 25 07/17/2022 Protein, Total 7.2 07/17/2022 Albumin 4.4 07/17/2022 Calcium 9.5 07/17/2022 Alkaline Phosphatase 97 07/17/2022 Bilirubin, Total 0.2 07/17/2022 AST 23 07/17/2022 ALT 13 07/17/2022 Pain Procedures: DATE PROCEDURE IMPROVEMENT 02/28/22 MBB B/L L3/4, L4/5, L5/S1 No relief 07/12/22 MBB B/L L3/4, L4/5, L5/S1 100% relief for 10 days Current Medications, Past Medical History, Past Surgical History, Family History, Social History and Review of Systems: On today's date, 08/01/2022, noted above, I have confirmed and edited as necessary, the PFSH and ROS obtained by others. Physical Exam: 08/02/22 1050 Pulse: 68 Resp: 16 SpO2: 95% Constitutional: obese HEENT: Normal Cephalic, Atraumatic, Non-icteric sclera Eyes: Conjunctiva clear. No discharge from eyes Cardiovascular: Appears well perfused Lymphatic: No visible regional lymphadenopathy Skin: No visible rashes or ecchymosis Psychiatric: Full affect, Alert, Pleasant MSK: Extremities: MONDRAGON, no deficits or edema Gait: Normal. Ambulates unassisted Neuro: Motor Strength: Upper and lower extremity 5/5 bilaterally Sensory: intact to light touch +Facet loaded BL Diffuse tenderness throughout on examination Negative SLE BL + SIJ Tenderness BL, negative fabers, negative sacral thrust Diagnoses: (M54.50, G89.29) Chronic bilateral low back pain without sciatica (primary encounter diagnosis) (M47.816) Lumbar spondylosis (M79.18) Myofascial pain (M79.7) Fibromyalgia (M46.1) Sacroiliitis (HCC) Impression & Plan: 62 year old female, who presents with complaint(s) of chronic low back pain.Patient had 100% of temporary pain relief with her initial diagnostic lumbar MBB in 06/2021. She did not have her repeat until 02/2022 with no pain relief. She has mild degenerative changes and facet hypertrophy primarily L4/5, L5/S1. No significant canalstenosis. She is neuro intact. She reports frequent falls, speech difficulties. Had a recent CVA, she will have neurology consultation on 08/10/21 as well as cardiology. She has failed to respond to PT. Reports TENS in the past was helpful Marimar Wang would benefit from the following to decrease pain, improve function and/or work participation, and improve quality of life: Medications: Refill: Requested Prescriptions No prescriptions requested or ordered in this encounter Add OTC Tylenol 1 gm PO BID Continue Lyrica 150 mg BID (No RF needed today) Functional Yazidism: TENS Additional Studies: Referrals: Additional: Consider SPRINT PNS Trial TENS unit, new ordered provided. Follow up with Dr. Mitchell. Patient is happy and agreeable with this plan. All questions were answered and patient verbalized understanding. Depending on response to the above plan, consider: Follow-up: next available appointment, with Dr. Mitchell for evaluation of response to treatment plan and optimization Attribution: In addition to reviewing the information noted above, some elements copied from my most recent clinical note(s), including the physical exam (completed in entirety today), and the impression and plan sections, have been updated where appropriate. All reflect current medical decision making from today's date. Leilani Colmenares APRN.TRACY Pain Management [facility] documented in this encounterCleveland [facility]12-13-2022 History of Present illness Narrative* Jorge Alberto Vasquez, RT(R) - 07/10/2022 12:30 PM EST Radiology Service Progress Note PATIENT NAME: Marimar Wang DATE OF SERVICE: July 10, 2022 TIME: 12:29 PM PATIENT IDENTITY VERIFICATION COMPLETED USING TWO (2) IDENTIFIERS: Name and Date of confirmedby patient verbally. FALL SCREENING: Has the patient had 2 falls in the last year or 1 fall with injury or currently using an Ambulatory Assistive Device (Walker, Cane, Wheelchair, Crutches, etc.)? Yes, Patient High Riskfor Falls What interventions were put in place to prevent falls during this visit? Increased Observations by Caregivers PATIENT GENDER DATA: Female. status: : No status: NO. PATIENT RELEVANT IMPLANT DATA REVIEWED: Not Applicable RADIOLOGY DEPARTMENT: Bone Density PERIPHERAL IV DATA: Not applicable SIGNED BY: RT Sandra(R) July 10, 2022 12:29 PM documented in this encounterCleveland Clinic [facility]11-29-2022 History of Present illness Narrative* RT Derrick(Cyrus) - 06/26/2022 3:15 PM EST Radiology Service Progress Note PATIENT NAME: Marimar Wang DATE OF SERVICE: June 26, 2022 TIME: 3:18 PM PATIENT IDENTITY VERIFICATION COMPLETED USING TWO (2) IDENTIFIERS: Name and Date of confirmedby patient verbally and Name and Date of confirmed by identification band. FALL SCREENING: Has the patient had 2 falls in the last year or 1 fall with injury or currently using an Ambulatory Assistive Device (Walker, Cane, Wheelchair, Crutches, etc.)? Yes, Patient High Riskfor Falls What interventions were put in place to prevent falls during this visit? Offered Assistance with Transfers/Clothing, Instructed Patient to Remain Seated (Not on Exam Table) Until Exam, and Increased Observations by Caregivers PATIENT GENDER DATA: Female. status: : No status: NO. PATIENT RELEVANT IMPLANT DATA REVIEWED: Not Applicable RADIOLOGY DEPARTMENT: General X-ray: Exam(s) Completed: Pelvis X-Ray: Pelvis with Hip Left PERIPHERAL IV DATA: Not applicable SIGNED BY: RT Derrick(R) June 26, 2022 3:18 PM documented in this encounterCleveland Clinic [facility]11-29-2022 Instructions* Patient Instructions* Sarah Pearson PA-C - 06/26/2022 2:41 PM EST Check schedule- schedule Orencia infusion soon Continue Arava daily Check vit D with infusion- will decide if need to take Call cardiology and neurology for appt Schedule bone density [phone] Left hip XR today downstairs documented in this encounterCleveland Clinic [facility]ucl[facility]11-29-2022 History of Present illness Narrative* Sarah Pearson PA-C - 06/26/2022 1:52 PM EST Images from the original note were not included. [facility] Arthritis and Rheumatology Sarah Pearson [address] [place] [address] RHEUMATOLOGY PROGRESS NOTE HPI: Marimar Wang is a 62 year old female seen for RA, osteoporosis. Orencia IV every 4 weeks, Arava 20 mg daily Reclast IV yearly, Vit D 50,000 units daily Reclast last 01/25/2022 Skipped recent Orencia due to COVID infection 05/16/2022 In hospital recently, memory issues, new asphasia, balance issues, elevated BP (258/122). Possible stroke? Started on Plavix. Stopped her benadryl and Flexeril. Still on Lyrica per pain mgmt 06/20/22 MRI brain did show some ischemia but non-specific. ECHO- no abnormalities. CV carotid study and MR angiography showed Moderate irregular mixed plaque is present bilaterally. Has an appointment with neurology scheduled for 08/08/2022 in [place]. Plans on possibly scheduling appointment with a different neurologist closer to home. Fell yesterday, landed on left hip- increased pain, bruising on left hip Able to ambulate with a cane and limp Tripped on the sidewalk No trauma to head No LOC Pain today 20/ all over, from fall Rash on fingers- itching, using otc antibiotic ointment Swelling- in bilateral fingers AM stiffness- 2-3 hours Has been off from Orencia since April 2022 - will call to schedule next Orencia infusion Reports COVID-19 diana pappas Reports a rash on her right thumb and left 2nd and 3rd finger x a few months. Rash is intensely itchy at times. Worse after hands are in water. She has been using topical triple antibiotic ointment. No nail changes. Jul 2021 - fell on ice fracture NOF. Also had stress fracture which could have been old. Had hemiarthroplasty. Recovering. COVID 04/06/2021, whole month, COVID pneumonia, pleurisy, bronchitis Following closely with pulmonology, recent PFTs are stable Seeing pain mgmt for low back and hips, off gabapentin- now on Lyrica 150 mg bid. She gets procedures for her low back HISTORY REVIEWED (electronic chart updated): PAST MEDICAL HISTORY Diagnosis Date Asthma Homer lesion, acute 01/30/2019 Carotid artery stenosis bilateral- US in [facility] COPD (chronic obstructive pulmonary disease) (HCC) Depression Diverticulosis Fibromyalgia GERD (gastroesophageal reflux disease) GI bleed 02/2019 Hiatal hernia Repaired 05/07/19 Hyperlipidemia Hypertension Insomnia Iron deficiency anemia Osteoarthritis Osteoporosis Piriformis syndrome PVC's (premature ventricular contractions) Rheumatoid arthritis (HCC) Sjogren's disease (HCC) Vitamin D deficiency PAST SURGICAL HISTORY Procedure Laterality Date ARTHRP KNE CONDYLE&PLATU MEDIAL&LAT COMPARTMENTS 2009 Total left knee surgery COLONOSCOPY FLX DX W/COLLJ SPEC WHEN PFRMD 04/11/2015 diverticulosis, no specimens collected Dr. Tapia COLONOSCOPY FLX DX W/COLLJ SPEC WHEN PFRMD 09/23/[address] Tapia EGD 01/30/2019 large hiatal hernia with Homer erosions, likely source of GI bleed Dr. Rudolph EGD 09/15/2007 patulous GE junction, nonobstructive Schatzki's ring, bile reflux of stomach, hiatal hernia, neg H pylori EGD EUS N/A 07/07/2020 3 cm sliding hiatal hernia, no obst Schatzki's ring, mild duodenitis, mild/moderate gastritis EGD TRANSORAL BIOPSY SINGLE/MULTIPLE 02/17/2020 retained contents in stomach, bxs negative Dr. Pat ESOPHAGOGASTRODUODENOSCOPY TRANSORAL DIAGNOSTIC 05/07/2016 sliding hiatal hernia, no source of GI bleed Dr. Laureano ESOPHAGOGASTRODUODENOSCOPY TRANSORAL DIAGNOSTIC 09/23/2017 normal, bxs negative Dr. Tapia GI TR IMG INTRALUMINAL ESOPHAGUS-ILEUM W/I&R 10/04/2017 Normal smallbowel Capsule endosocpy HIATAL HERNIA REPAIR HX 04/2019 LAPS RPR PARAESPHGL HRNA INCL FUNDPLSTY W/MESH 05/07/2019 Dr. Pat MRI BRAIN W/O CONTRAST 07/20/2011 PAST SURGICAL HISTORY OF 1983, 1986 2 C Sections PAST SURGICAL HISTORY OF 1982 Left shoulder, has screw in shoulder FAMILY HISTORY Problem Relation Age of Onset Hypertension Mother Stroke Mother Cataract Mother Asthma Mother other (ESRD) Mother Heart Father Glaucoma Father Ischemic Heart Disease Father age 42 from [place] Hypertension Sister other (Other) Brother 18 MVA Depression Daughter other (PTSD) Daughter other (Anxiety) Daughter other (svt) Daughter Diabetes Daughter Social History Tobacco Use Smoking status: Former Packs/day: 1.00 Years: 31.00 Pack years: 31.00 Types: Cigarettes Quit date: 01/01/2015 Years since quittin.4 Smokeless tobacco: Never Tobacco comments: ETS: Father in childhood home. Active smoker in current home. Vaping Use Vaping Use: Never used Substance Use Topics Alcohol use: No Drug use: Never Current Outpatient Medications Medication Sig clopidogrel (PLAVIX) 75 mg tablet Take 75 mg by mouth once daily. leflunomide (ARAVA) 20 mg tablet Take 1 tablet by mouth once daily. promethazine (PHENERGAN) 25 mg tablet Take 1 tablet by mouth every 6 hours as needed for nausea/vomiting. pregabalin (LYRICA) 150 mg capsule Take 1 capsule by mouth twice daily for 180 days. FLUoxetine (PROZAC) 20 mg capsule Take 3 capsules by mouth once daily. simvastatin (ZOCOR) 40 mg tablet Take 1 tablet by mouth daily at bedtime. abatacept/maltose (ORENCIA, WITH MALTOSE, INTRAVENOUS) Inject intravenously. albuterol HFA (VENTOLIN HFA) 90 mcg/actuation inhaler Inhale 2 Puffs as instructed every 4 hours asneeded for wheezing/shortness of breath. buPROPion XL (WELLBUTRIN XL) 150 mg 24 hr tablet Take 1 tablet by mouth once daily. furosemide (LASIX) 40 mg tablet Take 1 tablet by mouth once daily. mometasone (NASONEX) 50 mcg/actuation nasal spray Use 2 Sprays in the nose once daily. Rinse mouth after use. albuterol (PROVENTIL) 2.5 mg /3 mL (0.083 %) nebulizer solution Use 3 mL via nebulizer every 4 hours as needed for wheezing/shortness of breath. Use over 5-15minutes. hyoscyamine (LEVSIN) 0.125 mg tablet Take 1 tablet by mouth every 6 hours as needed. acetaminophen (TYLENOL) 325 mg tablet Take by mouth every 6 hours as needed. albuterol (PROVENTIL) 2.5 mg /3 mL (0.083 %) nebulizer solution Use 3 mL via nebulizer every 6 hours as needed for Wheezing/Shortness of Breath. >Nebulizer For Home Nebulizer for home use. Diagnosis: Moderate persistent asthma with acute exacerbation and pneumonia hydrocortisone 2.5 % cream Apply 1 application to affected area twice daily. aspirin 81 mg cap Take by mouth. (Patient not taking: Reported on 06/26/2022) No current facility-administered medications for this visit. ALLERGIES Allergen Reactions Nsaids (Non-Steroid* Anaphylaxis Had anaphylactic reaction to Aleve Vibramycin [Doxycyc* Anaphylaxis Cymbalta [Duloxetin* Intolerance Headaches Dilaudid [Hydromorp* Vomiting Horse Serum [Other] Morphine Vomiting Vicodin [Hydrocodon* Vomiting Can take if given antiemetic at same time History Review: I have reviewed and modified as needed, the following during this visit: Allergies,Past Medical History, Past Surgical History, Past Family History, Past Social History. Interval Review of Systems CONSTITUTIONAL: Recent Weight change: No Fever: No EYES: Dryness in nose: No Dryness of mouth: No Oral ulcers: No CARDIOVASCULAR: Pain in chest: No RESPIRATORY: Shortness of breath: No Cough: No GASTROINTESTINAL: Nausea: No Vomiting: No Changes in bowel movements: No Jaundice: No Heartburn: No MUSCULOSKELETAL: Per HPI INTEGUMENTARY: Rash: Yes HEMATOLOGIC/LYMPHATIC: Anemia: No NEUROLOGICAL SYSTEM: Headaches: No Sensitivity or pain of hands and/or feet: No PSYCHIATRIC: Anxiety: No Poor sleep: No BP 140/78 Pulse 96 Temp 36.6 C (97.8 F) (Temporal) Resp 16 Ht 160 cm (5' 3) Wt 91.6 kg (202 lb) BMI 35.78 kg/m Physical Exam GENERAL: Well appearing, alert, comfortable, in no acute distress, well- hydrated, well nourished. HEENT: Negative for external ears normal. Canals are clear. Both TMs visualized and are normal. EyeExam normal. External nose normal, no nasal ulcer or throat ulcer. NECK: NECK Supple, no adenopathy; thyroid symmetric, normal size, no bruits CARDIAC: regular rate and rhythm, No murmur asculated., and Equal peripheral pulses RESPIRATORY: Lungs clear to auscultation. No wheezing, rhonchi, rales VASCULAR: RRR without murmur, gallop, or rubs. No ectopy. NEURO: Motor and sensory exam normal MOTOR: Normal; including tone, gait, stressed gait, power and coordination. SKIN: Negative for alopecia, malar rash, skin lesion, skin ulcer, pits, thickening, color changes, telangiectasias, nail changes, nail ridging, nail pitting, onycholysis. Maculopapular rash on left second and third fingers, as well as the right 1st finger MUSCULOSKELETAL: Left 3rd PIP tenderness Limited range of motion of left hip secondary to pain Lateral aspect of the left upper thigh is tender to palpation Labs: 05/2022 Cr 0.7 LFT normal CBC normal 10/2021 Creatinine0.63 Liver enzymes normal CRP normal CBC normal ESR 12 Serology: RF positive, CCP positive Radiology: IMPRESSION: Large hiatal hernia. Again seen is mild, diffuse bronchial wall thickening. Interval development of multifocal bilateral groundglass attenuation airspace opacities within both lungs, concerning for multifocal pneumonia. Interval follow-up examination after treatment is recommended in order to ensure resolution. Sequela of remote granulomatous disease. Interval development of tiny pulmonary nodules, measuring up to 2 mm in size. Incidental Finding: No follow-up imaging for this/these incidentally detected lung nodule(s) is recommended. If there are risk factors for lung malignancy, a follow-up chest CT exam could be obtained in 12 months. Interval development of anterior mediastinal lymphadenopathy. IMPRESSION: MODERATE TO MARKED OSTEOARTHRITIS OF THE PATELLOFEMORAL AND MEDIAL COMPARTMENT. NONDISPLACED MEDIAL MENISCUS TEAR. PARTIALLY RUPTURED MATTHEW'S CYST. Impression IMPRESSION: Mild spondylotic changes as detailed noting multilevel facet arthropathy, most pronounced at L4-5 and L5-S1. No significant canal or foraminal narrowing. Anatomic Thoracic/Lumbar Variant: None. L4-5 is considered the level of the iliac crest and assume there are 5 lumbar-type vertebrae. ASSESSMENT: (M81.6) Localized osteoporosis without current pathological fracture (primary encounter diagnosis) (M25.552) Pain in left hip (W19.XXXA) Fall, initial encounter (R21) Rash and nonspecific skin eruption (M05.79) Rheumatoid arthritis involving multiple sites with positive rheumatoid factor (HCC) (Z79.899) High risk medication use (E55.9) Vitamin D deficiency 62-year-old woman is here for follow-up. Patient has seropositive rheumatoid arthritis, erosive osteoarthritis and osteoporosis. She was on Humira and Arava however discontinued due to being sick. Patient was switched to Orencia infusions. Had been doing well on combination Orencia IV every 4 weeks infusions and Arava 20 mg daily. Has not had Orencia IV infusion since 05/19 due to COVID-19 infection. She plans on calling today to schedule next infusion soon. Bone density shows improvement since starting Reclast. BMD 04/2020 shows osteoporosis with T-score -2.8. Would like her to continue Reclast yearly infusions. S/p Reclast 02/2018, 05/2019, 12/2020. Would like her to have 1 additional dose 12/2021, obtain bone density 04/2022 and then consider drug holid ay. Recheck Vit D level with next infusion. If necessary, resume vitamin D 50,000 units weekly. BMD ordered and patient will schedule. Patient said she saw pulmonology, was told she did not have RA-ILD. 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 Could consider [facility] Following with cardiology for chronic diastolic heart failure, current therapy includes Lasix 40 mgdaily. Needs follow up appointment. We discussed about high alkaline phosphatase which is coming from both liver and bone. Discussed about the importance of keeping her cholesterol levels normal. Low vitamin D and osteoporosis are other causes for high alkaline phosphatase. Check vit D. Vanessa fundoplication completed, doing better. She has had left trochanteric bursitis in past. Recommend exercises and stretching. Injections can be considered in the future if needed. She is seeing spine and pain management and receiving procedures in her low back Patient reports new onset asphasia, memory issues, and balance issues. 06/20/22 MRI brain did show some ischemia but non-specific. ECHO- no abnormalities. CV carotid study and MR angiography showed Moderate irregular mixed plaque is present bilaterally. Recently started on Plavix. Has an appointment with neurology scheduled for 08/08/2022 in [place]. Patient has erythematous scaling lesions noted to her fingers with extreme itching, looks suspicious for eczema. Prescription given for hydrocortisone topical cream. If no improvement can discuss with PCP. PLAN: Recommend restarting Orencia IV every 4 weeks Patient will call to schedule next Orencia infusion Continue Arava 20 mg daily For osteoporosis, continue Reclast. May need to switch to Prolia or Forteo. Need PTH Bone density due 04/2022 - patient will call to schedule Will obtain XR left hip after fall yesterday Labs every 3 months with infusions Check vitamin D with next infusion Schedule appts with neurology and cardiology Follow-up in [address] Arias Patient Instructions Check schedule- schedule Orencia infusion soon Continue Arava daily Check vit D with infusion- will decide if need to take Call cardiology and neurology for appt Schedule bone density [phone] Left hip XR today downstairs [facility]-S2 TEACHING PROVIDER (Physician/PA/MECHANICAL FIELD ENGINEER) NOTE OF PERSONAL INVOLVEMENT IN CARE: I have personally seen and examined the patient and performed the medical decision-making components. I have reviewed the Physician Collar Stay Fuser Tender (PA) Student's documentation and verified the findings inthe note as written. Any additions or changes are noted in bold/italics. Signature: Sarah Pearson Date: 06/26/2022 Time: 4:29 PM Sarah Pearson PA-C documented [facility] encounterC[facility] Miscellaneous Notes* Telephone Encounter - Irma Lu - 06/15/2022 3:13 PM EST Patient scheduled with Sarah for 06/26 in [place]. Irma Joya Pss * Telephone Encounter - Sarah Pearson PA-C - 06/15/2022 12:54 PM EST Needs appt * Telephone Encounter - Jena Fish MA - 06/15/2022 9:42 AM EST Last appt was 01/2022 and has no f/u appt Pharmacy faxed requesting the following refill. Requested Prescriptions Pending Prescriptions Disp Refills leflunomide (ARAVA) 20 mg tablet [Pharmacy Med Name: LEFLUNOMIDE 20 MG TABLET] 30 tablet 2 Sig: Take 1 tablet by mouth once daily. Patient last appointment: 09/02/2019 Next Appointment: Visit date not found Patient Phone numbers: [phone] (home) Request is for script(s) to be escript to pharmacy. Jena Fish MA documented in this encounterC[facility]11-15-2022 Miscellaneous Notes* Telephone Encounter - Jacek Mitchell MD - 06/12/2022 1:48 PM EST Lyrica refill approved, has follow-up in Jul. Jacek Mitchell III, MD, SUJATHA * Telephone Encounter - Santa Murray LPN - 06/12/2022 9:06 AM EST [facility] Telephone Medication Refill Request Name/dose: pregabalin (LYRICA) 150 mg capsule Amount dispensed monthly: 60 Date last filled: 06-04-22 Date last seen in office: 02-01-22 (LEILANI) Provider: Jacek Mitchell MD Next scheduled visit: 08-09-22 Pharmacy: [id number] - [place] [address] - [address] [place] [phone] [address] Santa Murray LPN documented in this encounterC[facility]11[facility]14-[facility]22 Miscellaneous Notes* Telephone Encounter - Tracy Jerry LPN - 06/11/2022 6:18 PM EST Patient has been identified by name and date of : Yes Patient phones for refill(s): Requested Prescriptions Pending Prescriptions Disp Refills promethazine (PHENERGAN) 25 mg tablet 90 tablet 0 Sig: Take 1 tablet by mouth every 6 hours as needed for nausea/vomiting. Date of last office visit in primary care: 05/17/22 Last 2 Encounter Wt Readings: Date: Wt: 05/16/2022 93.9 kg (207 lb) 05/03/2022 96.4 kg (212 lb 9.6 oz) Previous labs/tests for medication: Not applicable Thank you. Tracy Jerry LPN documented in this encounterC[facility]10-20-2022 Instructions* Patient Instructions* Carol Mathews APRN.TRACY - 05/17/2022 11:50 AM EDT FACT SHEET FOR PATIENTS, PARENTS, AND CAREGIVERS EMERGENCY USE AUTHORIZATION (EUA) OF PAXLOVID FOR CORONAVIRUS DISEASE 2019 (COVID-19) You are being given this Fact Sheet because your healthcare provider believes it is necessary to provide you with PAXLOVID for the treatment of gwsi-lx-lwomrjsq coronavirus disease (COVID-19) caused by the SARS-CoV-2 virus. This Fact Sheet contains information to help you understand the risks and benefits of taking the PAXLOVID you have received or may receive. The U.S. Food and Drug Administration (FDA) has issued an Emergency Use Authorization (EUA) to makePAXLOVID available during the COVID-19 pandemic (for more details about an EUA please see What is an Emergency Use Authorization? at the end of this document). PAXLOVID is not an FDA-approved medicine in the [place]. Read this Fact Sheet for information about PAXLOVID. Talk to your healthcareprovider about your options or if you have any questions. It is your choice to take PAXLOVID. What is COVID-19? COVID-19 is caused by a virus called a coronavirus. You can get COVID-19 through close contact withanother person who has the virus. COVID-19 illnesses have ranged from very bdoc-qa-ajrqcq, including illness resulting in . While information so far suggests that most COVID-19 illness is mild, serious illness can happen and maycause some of your other medical conditions to become worse. Older people and people of all ages with severe, long lasting (chronic) medical conditions like heart disease, lung disease, and diabetes,for example seem to be at higher risk of being hospitalized for COVID-19. What is PAXLOVID? PAXLOVID is an investigational medicine used to treat exic-pj-hsyqufap COVID-19 in adults and children [12 years of age and older weighing at least 88 pounds (40 kg)] with positive results of direct SARS-CoV-2 viral testing, and who are at high risk for progression to severe COVID-19, including hospitalization or . PAXLOVID is investigational because it is still being studied. There is limited information about the safety and effectiveness of using PAXLOVID to treat people with ampj-kq-biwjpgqh COVID-19. The FDA has authorized the emergency use of PAXLOVID for the treatment of zfep-mp-ncbtoojo COVID-19in adults and children [12 years of age and older weighing at least 88 pounds (40 kg)] with a positive test for the virus that causes COVID-19, and who are at high risk for progression to severe COVID-19, including hospitalization or , under an EUA. 1 Revised: 13 October 2021 What should I tell my healthcare provider before I take PAXLOVID? Tell your healthcare provider if you: Have any allergies Have liver or kidney disease Are or plan to become Are a child Have any serious illnesses Tell your healthcare provider about all the medicines you take, including prescription and nzvi-wdw-kxgmzli medicines, vitamins, and herbal supplements. Some medicines may interact with PAXLOVID and may cause serious side effects. Keep a list of your medicines to show your healthcare provider and pharmacist when you get a new medicine. You can ask your healthcare provider or pharmacist for a list of medicines that interact with PAXLOVID. Do not start taking a new medicine without telling your healthcare provider. Your healthcare provider can tell you if it is safe to take PAXLOVID with other medicines. Tell your healthcare provider if you are taking combined hormonal contraceptive. PAXLOVID may affect how your control pills work. Females who are able to become should use another effective alternative form of contraception or an additional barrier method of contraception. Talk to your healthcare provider if you have any questions about contraceptive methods thatmight be right for you. How do I take PAXLOVID? PAXLOVID consists of 2 medicines: nirmatrelvir and ritonavir. Take 2 pink tablets of nirmatrelvir with 1 white tablet of ritonavir by mouth 2 times each day (in the morning and in the evening) for 5 days. For each dose, take all 3 tablets at the same time. If you have kidney disease, talk to your healthcare provider. You may need a different dose. Swallow the tablets whole. Do not chew, break, or crush the tablets. Take PAXLOVID with or without food. Do not stop taking PAXLOVID without talking to your healthcare provider, even if you feel better. If you miss a dose of PAXLOVID within 8 hours of the time it is usually taken, take it as soon as you remember. If you miss a dose by more than 8 hours, skip the missed dose and take the next dose atyour regular time. Do not take 2 doses of PAXLOVID at the same time. If you take too much PAXLOVID, call your healthcare provider or go to the nearest hospital emergency room right away. If you are taking a ritonavir-or cobicistat-containing medicine to treat hepatitis C or Human Immunodeficiency Virus (HIV), you should continue to take your medicine as prescribed by your healthcare provider. Talk to your healthcare provider if you do not feel better or if you feel worse after 5 days. Who should generally not take PAXLOVID? Do not take PAXLOVID if: You are allergic to nirmatrelvir, ritonavir, or any of the ingredients in PAXLOVID You are taking any of the following medicines: Alfuzosin Pethidine, propoxyphene Ranolazine Amiodarone, dronedarone, flecainide, propafenone, quinidine Colchicine Lurasidone, pimozide, clozapine Dihydroergotamine, ergotamine, methylergonovine Lovastatin, simvastatin Sildenafil (Revatio ) for pulmonary arterial hypertension (PAH) Triazolam, oral midazolam Apalutamide Carbamazepine, phenobarbital, phenytoin Rifampin [place] s Wort (hypericum perforatum) Taking PAXLOVID with these medicines may cause serious or life-threatening side effects or affect how PAXLOVID works. These are not the only medicines that may cause serious side effects if taken with PAXLOVID. PAXLOVID may increase or decrease the levels of multiple other medicines. It is very important to tell your healthcare provider about all of the medicines you are taking because additional laboratory tests or changes in the dose of your other medicines may be necessary while you are taking PAXLOVID. Your healthcare provider may also tell you about specific symptoms to watch out for that may indicate that you need to stop or decrease the dose of some of your other medicines. What are the important possible side effects of PAXLOVID? Possible side effects of PAXLOVID are: Allergic Reactions. Allergic reactions can happen in people taking PAXLOVID, even after only 1 dose. Stop taking PAXLOVID and call your healthcare provider right away if you get any of the following symptoms of an allergic reaction: hives trouble swallowing or breathing swelling of the mouth, lips, or face throat tightness hoarseness skin rash Liver Problems. Tell your healthcare provider right away if you have any of these signs and symptoms of liver problems: loss of appetite, yellowing of your skin and the whites of eyes (jaundice), dark-colored urine, pale colored stools and itchy skin, stomach area (abdominal) pain. Resistance to HIV Medicines. If you have untreated HIV infection, PAXLOVID may lead to some HIV medicines not working as well in the future. Other possible side effects include: altered sense of taste diarrhea high blood pressure muscle aches These are not all the possible side effects of PAXLOVID. Not many people have taken PAXLOVID. Serious and unexpected side effects may happen. PAXLOVID is still being studied, so it is possible that all of the risks are not known at this time. What other treatment choices are there? Veklury (remdesivir) is FDA-approved for the treatment of xdwf-fd-yzczvdvu COVID-19 in certain adults and children. Talk with your doctor to see if Veklury is appropriate for you. Like PAXLOVID, FDA may also allow for the emergency use of other medicines to treat people with COVID-19. Go to https://www.fda.gov/eqnesaibo-hctvlrzmdodo-gkinqgahwok/zdf-wcmah-umewnhxchd-and- policy-framework/jemvtfruh-jhd-eztwfdlzezhpw for information on the emergency use of other medicines that are authorized by FDA to treat people with COVID-19. Your healthcare provider may talk with you aboutclinical trials for which you may be eligible. It is your choice to be treated or not to be treated with PAXLOVID. Should you decide not to receive it or for your child not to receive it, it will not change your standard medical care. What if I am or ? There is oceanographer assistant treating women or mothers with PAXLOVID. For a motherand unborn baby, the benefit of taking PAXLOVID may be greater than the risk from the treatment. Ifyou are , discuss your options and specific situation with your healthcare provider. It is recommended that you use effective barrier contraception or do not have sexual activity whiletaking PAXLOVID. If you are , discuss your options and specific situation with your healthcare provider. How do I report side effects with PAXLOVID? Contact your healthcare provider if you have any side effects that bother you or do not go away. Report side effects to FDA [employer] at www.fda.gov/medwatch or call 2-915-PJW8900 or you can reportside effects to [employer]. at the contact information provided below. Website Fax number Telephone number [employer] How should I store PAXLOVID? Store PAXLOVID tablets at room temperature, between 68?F to 77?F (20?C to 25?C). How can I learn more about COVID-19? Ask your healthcare provider. Visit https://www.cdc.gov/COVID19. Contact your local or state public health department. What is an Emergency Use Authorization (EUA)? The [place] FDA has made PAXLOVID available under an emergency access mechanism called an Emergency Use Authorization (EUA). The EUA is supported by a Teen Counselor of Health and Human Service (HHS) declaration that circumstances exist to justify the emergency use of drugs and biological productsduring the COVID-19 pandemic. PAXLOVID for the treatment of pjdo-ss-mqkzjhzc COVID-19 in adults and children [12 years of age andolder weighing at least 88 pounds (40 kg)] with positive results of direct SARS-CoV-2 viral testing, and who are at high risk for progression to severe COVID-19, including hospitalization or , has not undergone the same type of review as an FDA-approved product. In issuing an EUA under the COVID-19 public health emergency, the FDA has determined, among other things, that based on the total amount of scientific evidence available including data from adequate and well-controlled clinical trials, if available, it is reasonable to believe that the product may be effective for diagnosing, treating, or preventing COVID-19, or a serious or life-threatening disease or condition caused by COVID-19; that the known and potential benefits of the product, when used to diagnose, treat, or prevent such disease or condition, outweigh the known and potential risks of such product; and that there are no adequate, approved, and available alternatives. All of these criteria must be met to allow for the product to be used in the treatment of patients during the COVID-19 pandemic. The EUA for PAXLOVID is in effect for the duration of the COVID-19 declaration justifying emergency use of this product, unless terminated or revoked (after which the products may no longer be used under the EUA). Additional Information For general questions, visit the website or call the telephone number provided below. Website Telephone number wwwMBA PolymersIBQXB48xbdvWw.com (2-565-A65-PACK) You can also go to www.SpinGo or call for more information. [employer] Distributed by [employer] [place] [address] LAB-1494-2.1 Revised: 13 October 2021 FACT SHEET FOR PATIENTS, PARENTS, AND CAREGIVERS EMERGENCY USE AUTHORIZATION (EUA) OF PAXLOVID FOR CORONAVIRUS DISEASE 2019 (COVID-19) You are being given this Fact Sheet because your healthcare provider believes it is necessary to provide you with PAXLOVID for the treatment of hlyx-sk-znmhljvy coronavirus disease (COVID-19) caused by the SARS-CoV-2 virus. This Fact Sheet contains information to help you understand the risks and benefits of taking the PAXLOVID you have received or may receive. The U.S. Food and Drug Administration (FDA) has issued an Emergency Use Authorization (EUA) to makePAXLOVID available during the COVID-19 pandemic (for more details about an EUA please see What is an Emergency Use Authorization? at the end of this document). PAXLOVID is not an FDA-approved medicine in the [place]. Read this Fact Sheet for information about PAXLOVID. Talk to your healthcareprovider about your options or if you have any questions. It is your choice to take PAXLOVID. What is COVID-19? COVID-19 is caused by a virus called a coronavirus. You can get COVID-19 through close contact withanother person who has the virus. COVID-19 illnesses have ranged from very jhwh-su-avlkli, including illness resulting in . While information so far suggests that most COVID-19 illness is mild, serious illness can happen and maycause some of your other medical conditions to become worse. Older people and people of all ages with severe, long lasting (chronic) medical conditions like heart disease, lung disease, and diabetes,for example seem to be at higher risk of being hospitalized for COVID-19. What is PAXLOVID? PAXLOVID is an investigational medicine used to treat yrgy-xd-xbwvjddh COVID-19 in adults and children [12 years of age and older weighing at least 88 pounds (40 kg)] with positive results of direct SARS-CoV-2 viral testing, and who are at high risk for progression to severe COVID-19, including hospitalization or . PAXLOVID is investigational because it is still being studied. There is limited information about the safety and effectiveness of using PAXLOVID to treat people with qqpi-yk-oyrtplcs COVID-19. The FDA has authorized the emergency use of PAXLOVID for the treatment of uolk-wv-extpllik COVID-19in adults and children [12 years of age and older weighing at least 88 pounds (40 kg)] with a positive test for the virus that causes COVID-19, and who are at high risk for progression to severe COVID-19, including hospitalization or , under an EUA. 1 Revised: 13 October 2021 What should I tell my healthcare provider before I take PAXLOVID? Tell your healthcare provider if you: Have any allergies Have liver or kidney disease Are or plan to become Are a child Have any serious illnesses Tell your healthcare provider about all the medicines you take, including prescription and memg-eue-hkkqckk medicines, vitamins, and herbal supplements. Some medicines may interact with PAXLOVID and may cause serious side effects. Keep a list of your medicines to show your healthcare provider and pharmacist when you get a new medicine. You can ask your healthcare provider or pharmacist for a list of medicines that interact with PAXLOVID. Do not start taking a new medicine without telling your healthcare provider. Your healthcare provider can tell you if it is safe to take PAXLOVID with other medicines. Tell your healthcare provider if you are taking combined hormonal contraceptive. PAXLOVID may affect how your control pills work. Females who are able to become should use another effective alternative form of contraception or an additional barrier method of contraception. Talk to your healthcare provider if you have any questions about contraceptive methods thatmight be right for you. How do I take PAXLOVID? PAXLOVID consists of 2 medicines: nirmatrelvir and ritonavir. Take 2 pink tablets of nirmatrelvir with 1 white tablet of ritonavir by mouth 2 times each day (in the morning and in the evening) for 5 days. For each dose, take all 3 tablets at the same time. If you have kidney disease, talk to your healthcare provider. You may need a different dose. Swallow the tablets whole. Do not chew, break, or crush the tablets. Take PAXLOVID with or without food. Do not stop taking PAXLOVID without talking to your healthcare provider, even if you feel better. If you miss a dose of PAXLOVID within 8 hours of the time it is usually taken, take it as soon as you remember. If you miss a dose by more than 8 hours, skip the missed dose and take the next dose atyour regular time. Do not take 2 doses of PAXLOVID at the same time. If you take too much PAXLOVID, call your healthcare provider or go to the nearest hospital emergency room right away. If you are taking a ritonavir-or cobicistat-containing medicine to treat hepatitis C or Human Immunodeficiency Virus (HIV), you should continue to take your medicine as prescribed by your healthcare provider. Talk to your healthcare provider if you do not feel better or if you feel worse after 5 days. Who should generally not take PAXLOVID? Do not take PAXLOVID if: You are allergic to nirmatrelvir, ritonavir, or any of the ingredients in PAXLOVID You are taking any of the following medicines: Alfuzosin Pethidine, propoxyphene Ranolazine Amiodarone, dronedarone, flecainide, propafenone, quinidine Colchicine Lurasidone, pimozide, clozapine Dihydroergotamine, ergotamine, methylergonovine Lovastatin, simvastatin Sildenafil (Revatio ) for pulmonary arterial hypertension (PAH) Triazolam, oral midazolam Apalutamide Carbamazepine, phenobarbital, phenytoin Rifampin [place] s Wort (hypericum perforatum) Taking PAXLOVID with these medicines may cause serious or life-threatening side effects or affect how PAXLOVID works. These are not the only medicines that may cause serious side effects if taken with PAXLOVID. PAXLOVID may increase or decrease the levels of multiple other medicines. It is very important to tell your healthcare provider about all of the medicines you are taking because additional laboratory tests or changes in the dose of your other medicines may be necessary while you are taking PAXLOVID. Your healthcare provider may also tell you about specific symptoms to watch out for that may indicate that you need to stop or decrease the dose of some of your other medicines. What are the important possible side effects of PAXLOVID? Possible side effects of PAXLOVID are: Allergic Reactions. Allergic reactions can happen in people taking PAXLOVID, even after only 1 dose. Stop taking PAXLOVID and call your healthcare provider right away if you get any of the following symptoms of an allergic reaction: hives trouble swallowing or breathing swelling of the mouth, lips, or face throat tightness hoarseness skin rash Liver Problems. Tell your healthcare provider right away if you have any of these signs and symptoms of liver problems: loss of appetite, yellowing of your skin and the whites of eyes (jaundice), dark-colored urine, pale colored stools and itchy skin, stomach area (abdominal) pain. Resistance to HIV Medicines. If you have untreated HIV infection, PAXLOVID may lead to some HIV medicines not working as well in the future. Other possible side effects include: altered sense of taste diarrhea high blood pressure muscle aches These are not all the possible side effects of PAXLOVID. Not many people have taken PAXLOVID. Serious and unexpected side effects may happen. PAXLOVID is still being studied, so it is possible that all of the risks are not known at this time. What other treatment choices are there? Veklury (remdesivir) is FDA-approved for the treatment of zrvm-dv-ctyeadaq COVID-19 in certain adults and children. Talk with your doctor to see if Veklury is appropriate for you. Like PAXLOVID, FDA may also allow for the emergency use of other medicines to treat people with COVID-19. Go to https://www.fda.gov/lnvkvzngj-jjnslaxnbiel-ebrdolburhe/kpj-ihfly-hydjoktywp-and- policy-framework/atdviavop-urf-mwxgxwhyhqfuq for information on the emergency use of other medicines that are authorized by FDA to treat people with COVID-19. Your healthcare provider may talk with you aboutclinical trials for which you may be eligible. It is your choice to be treated or not to be treated with PAXLOVID. Should you decide not to receive it or for your child not to receive it, it will not change your standard medical care. What if I am or ? There is oceanographer assistant treating women or mothers with PAXLOVID. For a motherand unborn baby, the benefit of taking PAXLOVID may be greater than the risk from the treatment. Ifyou are , discuss your options and specific situation with your healthcare provider. It is recommended that you use effective barrier contraception or do not have sexual activity whiletaking PAXLOVID. If you are , discuss your options and specific situation with your healthcare provider. How do I report side effects with PAXLOVID? Contact your healthcare provider if you have any side effects that bother you or do not go away. Report side effects to FDA MedWatch at www.fda.gov/medwatch or call 9-190-KHO4989 or you can reportside effects to [employer]. at the contact information provided below. Website Fax number Telephone number [email or web address] How should I store PAXLOVID? Store PAXLOVID tablets at room temperature, between 68?F to 77?F (20?C to 25?C). How can I learn more about COVID-19? Ask your healthcare provider. Visit https://www.cdc.gov/COVID19. Contact your local or state public health department. What is an Emergency Use Authorization (EUA)? The [place] FDA has made PAXLOVID available under an emergency access mechanism called an Emergency Use Authorization (EUA). The EUA is supported by a [place] of Health and Human Service (HHS) declaration that circumstances exist to justify the emergency use of drugs and biological productsduring the COVID-19 pandemic. PAXLOVID for the treatment of gyxn-eg-aeahmngi COVID-19 in adults and children [12 years of age andolder weighing at least 88 pounds (40 kg)] with positive results of direct SARS-CoV-2 viral testing, and who are at high risk for progression to severe COVID-19, including hospitalization or , has not undergone the same type of review as an FDA-approved product. In issuing an EUA under the COVID-19 public health emergency, the FDA has determined, among other things, that based on the total amount of scientific evidence available including data from adequate and well-controlled clinical trials, if available, it is reasonable to believe that the product may be effective for diagnosing, treating, or preventing COVID-19, or a serious or life-threatening disease or condition caused by COVID-19; that the known and potential benefits of the product, when used to diagnose, treat, or prevent such disease or condition, outweigh the known and potential risks of such product; and that there are no adequate, approved, and available alternatives. All of these criteria must be met to allow for the product to be used in the treatment of patients during the COVID-19 pandemic. The EUA for PAXLOVID is in effect for the duration of the COVID-19 declaration justifying emergency use of this product, unless terminated or revoked (after which the products may no longer be used under the EUA). Additional Information For general questions, visit the website or call the telephone number provided below. Website Telephone number [email or web address] (4-373-C80-TMTE) You can also go to [email or web address] or call for more information. Pfizer Distributed by [employer] [place] [address] [id number] Revised: 13 October 2021 documented in this encounterC[facility]10-[facility]22 History of Present illness Narrative* Carol Mathews APRN.CNP - 05/17/2022 11:42 AM EDT This Team Access Model visit is a virtual encounter. It required patient- provider interaction for the medical decision making as documented below. Patient agrees to the visit: Yes Patient Location: [place] CC: Patient presents with: Covid Test Result HPI Marimar Wang is a 62 year old female who is contacted today for a virtual visit. This is an established patient of Dr. Selene Pierre MD. Positive COVID test on 05/16/22. Symptoms began 5 days ago. Currently has fatigue, sore throat, headache, clear productive cough, body aches, sinus congestion/drainage, nausea, vomiting, and diarrhea. Denies shortness of breath, wheezing, chest pain, edea, fever, chills, dizziness, weakness or syncope. History of COPD: Has not needed to use her emergency inhaler. REVIEW OF SYSTEMS See HPI PAST MEDICAL HISTORY Diagnosis Date Asthma Homer lesion, acute 01/30/2019 Carotid artery stenosis bilateral- US in [facility] COPD (chronic obstructive pulmonary disease) (HCC) Depression Diverticulosis Fibromyalgia GERD (gastroesophageal reflux disease) GI bleed 02/2019 Hiatal hernia Repaired 05/07/19 Hyperlipidemia Hypertension Insomnia Iron deficiency anemia Osteoarthritis Osteoporosis Piriformis syndrome PVC's (premature ventricular contractions) Rheumatoid arthritis (HCC) Sjogren's disease (HCC) Vitamin D deficiency PAST SURGICAL HISTORY Procedure Laterality Date ARTHRP KNE CONDYLE&PLATU MEDIAL&LAT COMPARTMENTS 2009 Total left knee surgery COLONOSCOPY FLX DX W/COLLJ SPEC WHEN PFRMD 04/11/2015 diverticulosis, no specimens collected Dr. Tapia COLONOSCOPY FLX DX W/COLLJ SPEC WHEN PFRMD 09/23/[address] Tapia EGD 01/30/2019 large hiatal hernia with Homer erosions, likely source of GI bleed Dr. Rudolph EGD 09/15/2007 patulous GE junction, nonobstructive Schatzki's ring, bile reflux of stomach, hiatal hernia, neg H pylori EGD EUS N/A 07/07/2020 3 cm sliding hiatal hernia, no obst Schatzki's ring, mild duodenitis, mild/moderate gastritis EGD TRANSORAL BIOPSY SINGLE/MULTIPLE 02/17/2020 retained contents in stomach, bxs negative Dr. Pat ESOPHAGOGASTRODUODENOSCOPY TRANSORAL DIAGNOSTIC 05/07/2016 sliding hiatal hernia, no source of GI bleed Dr. Laureano ESOPHAGOGASTRODUODENOSCOPY TRANSORAL DIAGNOSTIC 09/23/2017 normal, bxs negative Dr. Tapia GI TRC IMG INTRALUMINAL ESOPHAGUS-ILEUM W/I&R 10/04/2017 Normal smallbowel Capsule endosocpy HIATAL HERNIA REPAIR HX 04/2019 LAPS RPR PARAESPHGL HRNA INCL FUNDPLSTY W/MESH 05/07/2019 Dr. Pat MRI BRAIN W/O CONTRAST 07/20/2011 PAST SURGICAL HISTORY OF 1983, 1986 2 C Sections PAST SURGICAL HISTORY OF 1982 Left shoulder, has screw in shoulder ALLERGIES Nsaids (Non-Steroidal Anti-Inflammatory Drug), Vibramycin [Doxycycline Calcium], Cymbalta[Duloxetine], Dilaudid [Hydromorphone (Bulk)], Horse Serum [Other], Morphine, and Vicodin [Hydrocodone-Acetaminophen] MEDICATIONS cyclobenzaprine (FLEXERIL) 10 mg tablet Take 1 tablet by mouth twice daily as needed. cyclobenzaprine (FLEXERIL) 10 mg tablet Take 1 tablet by mouth twice daily as needed. promethazine (PHENERGAN) 25 mg tablet Take 1 tablet by mouth every 6 hours as needed for nausea/vomiting. FLUoxetine (PROZAC) 20 mg capsule Take 3 capsules by mouth once daily. simvastatin (ZOCOR) 40 mg tablet Take 1 tablet by mouth daily at bedtime. leflunomide (ARAVA) 20 mg tablet take 1 tablet by mouth once daily abatacept/maltose (ORENCIA, WITH MALTOSE, INTRAVENOUS) Inject intravenously. cholecalciferol, Vitamin D3, (VITAMIN D3) 1,250 mcg (50,000 unit) cap capsule Take 1 capsule by mouth one time a week. albuterol HFA (VENTOLIN HFA) 90 mcg/actuation inhaler Inhale 2 Puffs as instructed every 4 hours asneeded for wheezing/shortness of breath. pregabalin (LYRICA) 150 mg capsule Take 1 capsule by mouth twice daily for 180 days. buPROPion XL (WELLBUTRIN XL) 150 mg 24 hr tablet Take 1 tablet by mouth once daily. aspirin 81 mg cap Take by mouth. furosemide (LASIX) 40 mg tablet Take 1 tablet by mouth once daily. mometasone (NASONEX) 50 mcg/actuation nasal spray Use 2 Sprays in the nose once daily. Rinse mouth after use. mometasone-formoterol (DULERA) 100-5 mcg/actuation inhaler Inhale 2 Puffs as instructed twice daily. albuterol (PROVENTIL) 2.5 mg /3 mL (0.083 %) nebulizer solution Use 3 mL via nebulizer every 4 hours as needed for wheezing/shortness of breath. Use over 5-15minutes. hyoscyamine (LEVSIN) 0.125 mg tablet Take 1 tablet by mouth every 6 hours as needed. diphenhydrAMINE (BENADRYL) 25 mg tablet Take 25 mg by mouth daily at bedtime. acetaminophen (TYLENOL) 325 mg tablet Take by mouth every 6 hours as needed. albuterol (PROVENTIL) 2.5 mg /3 mL (0.083 %) nebulizer solution Use 3 mL via nebulizer every 6 hours as needed for Wheezing/Shortness of Breath. >Nebulizer For Home Nebulizer for home use. Diagnosis: Moderate persistent asthma with acute exacerbation and pneumonia FAMILY HISTORY Problem Relation Age of Onset Hypertension Mother Stroke Mother Cataract Mother Asthma Mother other (ESRD) Mother Heart Father Glaucoma Father Ischemic Heart Disease Father age 42 from [place] Hypertension Sister other (Other) Brother 18 MVA Depression Daughter other (PTSD) Daughter other (Anxiety) Daughter other (svt) Daughter Diabetes Daughter Social History Tobacco Use Smoking status: Former Packs/day: 1.00 Years: 31.00 Pack years: 31.00 Types: Cigarettes Quit date: 01/01/2015 Years since quittin.3 Smokeless tobacco: Never Tobacco comments: ETS: Father in childhood home. Active smoker in current home. Vaping Use Vaping Use: Never used Substance Use Topics Alcohol use: No Drug use: Never EXAM: Virtual visit completed using video, limited exam completed. GENERAL: alert and appropriate, in no distress, well-hydrated, well nourished, appears tired, and coughs occasionally RESPIRATORY: breathing non-labored CHEST: equal chest rise with normal respiratory effort DATA REVIEWED: most recent GFR which was normal ASSESSMENT/PLAN: 1. COVID - ICD9: 079.89, ICD10: U07.1 - eligible for paxlovid so ordered - patient to hold her simvastatin while on paxlovid and discuss with middle school librarian if she should be holding any of her RA medications - benzonatate for cough and continue with nasal spray as already taking - follow up in 3-5 days if no improvement - go to ER for chest pain, shortness of breath, palpitations, or any other urgent concerns. Prescription instructions reviewed with patient as applicable. Potential red flag symptoms discussed with the patient. Reviewed appropriate action plan to take if red flag symptoms occur. Patient agreeable to treatment plan. During this patient visit I have spent approximately 15 minutes in counseling regarding treatment options, medications, test results, and coordinating care. Carol Mathews APRN.TRACY Nirmatrelvir/Ritonavir (Paxlovid) Eligibility and Patient Discussion [facility] Formulary Restriction Criteria: Adult outpatients 18 years and older with ALL of the following: [x] Patient has positive SARS-COV-2 viral test (PCR or antigen test) during current illness [x] Patient has symptoms for 5 days or less [x] Not requiring hospitalization at any time for management of COVID-19 [x] Not requiring supplemental oxygen or a change in baseline supplemental oxygen [x] Not utilized for pre-exposure or post-exposure prophylaxis for prevention of COVID-19 [x] Patient does not have severe renal impairment (eGFR < 30 mL/min) or severe hepatic impairment (Child-Wilson Class C) [x] Meeting at least one of the criteria for high risk of progression to severe COVID-19: [] Age over 65 years [] Cancer [] Chronic kidney disease [] Chronic liver disease [x] Chronic lung diseases, including cystic fibrosis [] Dementia or other neurological conditions [] Diabetes (type 1 or type 2) [] Disabilities, including Down syndrome and neurodevelopmental disorders [x] Heart conditions [] HIV infection [] Immunocompromised state [] Mental health conditions [] Medical related technological dependence (tracheostomy, gastrostomy, or positive pressure ventilation (not related to COVID) [x] Overweight and obesity (BMI greater or equal to 25 for adults) [] Physical inactivity [] [] Sickle cell disease or thalassemia [] Smoking, current or former [] Solid organ or blood stem cell transplant [] Stroke or cerebrovascular disease [] Substance use disorders [] Tuberculosis [] People from racial and ethnic minority groups Criteria above are met: Yes Date of Positive Test:05/16/22 Date of Symptom Onset: 05/12/22 Patient received COVID vaccine: No Drug-Drug interactions reviewed: Yes. Drug interactions were identified and the following actions were taken . Patient to hold simvastatin while on paxlovid. I have discussed the use of the investigational therapeutic, nirmatrelvir/ritonavir, for the treatment of mild to moderate COVID-19 and its use under Emergency Use Authorization with the patient. The patient was informed that nirmatrelvir/ritonavir is not an FDA approved drug and that it is authorized for use under this Emergency Use Authorization. The patient was also informed of the significant known benefits and potential risks of nirmatrelvir/ritonavir, and the extent to which such potential risks and benefits are unknown. The patient was informed that there is mandatory reporting of all medication errors and serious adverse events potentially related to nirmatrelvir/ritonavir treatment within 7 calendar days from the onset of the event and that events up to 28 days after completion of therapy need to be reported. The discussion included alternatives to receiving nirmatrelvir/rit onavir, including clinical trials, and potential the risks and benefits of those alternatives. The patient was provided electronically with the Fact Sheet for Patients, Parents and Caregivers. The patient was also instructed that in addition to the treatment with nirmatrelvir/ritonavir, he/she should continue to self-isolate and use infection control measures (e.g., wear mask, isolate, social distance, avoid sharing personal items, clean and disinfect high touch surfaces, and frequent h andwashing) according to CDC guidelines. The patient stated understanding and gave verbal consent to proceeding with nirmatrelvir/ritonavir treatment. Carol Mathews APRN.CNP May 17, 2022 11:52 AM documented in this encounterC[facility]10-20-2022 Miscellaneous Notes* Telephone Encounter - Betsey Mccabe LPN - 05/17/2022 9:05 AM EDT Patient returned call and went over results, notes from express care provider with understanding. Scheduled patient with Carol Mathews STATISTICAL MACHINE MECHANIC at 1140 am my chart virtual visit since patient wants oral antiviral rx. * Telephone Encounter - Olga Jerry LPN - 05/17/2022 8:41 AM EDT Phone call placed brief message to contact a nurse. Olga Jerry LPN * Telephone Encounter - Geronimo Cadena APRN.CNP - 05/17/2022 7:59 AM EDT COVID-19 test is positive. You do qualify for antiviral therapies for treatment of COVID-19 infection. If interested contact PCPs office or schedule a virtual visit online through WebLayers onlineIf interested in COVID-19 therapies. Continue supportive therapies as discussed. Be seen in the emergency room if red flag symptoms develop such as chest pain shortness of breath or difficulty breathing. Geronimo Cadena APRN.TRACY documented in this encounterC[facility]10-19-2022 History of Present illness Narrative* Sarah De Luna APRN.TRACY - 05/16/2022 9:25 AM EDT SUBJECTIVE: Marimar Wang is a 62 year old female. Who presents today with cough, sore throat, body aches, loss of voice, vomiting and headache for the last 3 days. She was exposed to covid. She is not vaccinated. She has no fever and she has loss of taste and smell. She has taken mucinex and motrin at home for her symptoms. She is here for a covid swab. HPI PAST MEDICAL HISTORY Diagnosis Date Asthma Homer lesion, acute 01/30/2019 Carotid artery stenosis bilateral- US in epic COPD (chronic obstructive pulmonary disease) (HCC) Depression Diverticulosis Fibromyalgia GERD (gastroesophageal reflux disease) GI bleed 02/2019 Hiatal hernia Repaired 05/07/19 Hyperlipidemia Hypertension Insomnia Iron deficiency anemia Osteoarthritis Osteoporosis Piriformis syndrome PVC's (premature ventricular contractions) Rheumatoid arthritis (HCC) Sjogren's disease (HCC) Vitamin D deficiency FAMILY HISTORY Problem Relation Age of Onset Hypertension Mother Stroke Mother Cataract Mother Asthma Mother other (ESRD) Mother Heart Father Glaucoma Father Ischemic Heart Disease Father age 42 from [place] Hypertension Sister other (Other) Brother 18 MVA Depression Daughter other (PTSD) Daughter other (Anxiety) Daughter other (svt) Daughter Diabetes Daughter Social History Tobacco Use Smoking status: Former Packs/day: 1.00 Years: 31.00 Pack years: 31.00 Types: Cigarettes Quit date: 01/01/2015 Years since quittin.3 Smokeless tobacco: Never Tobacco comments: ETS: Father in childhood home. Active smoker in current home. Vaping Use Vaping Use: Never used Substance Use Topics Alcohol use: No Drug use: Never ALLERGIES Allergen Reactions Nsaids (Non-Steroid* Anaphylaxis Had anaphylactic reaction to Aleve Vibramycin [Doxycyc* Anaphylaxis Cymbalta [Duloxetin* Intolerance Headaches Dilaudid [Hydromorp* Vomiting Horse Serum [Other] Morphine Vomiting Vicodin [Hydrocodon* Vomiting Can take if given antiemetic at same time Current Outpatient Medications Medication Sig Dispense Refill cyclobenzaprine (FLEXERIL) 10 mg tablet Take 1 tablet by mouth twice daily as needed. 60 tablet 2 promethazine (PHENERGAN) 25 mg tablet Take 1 tablet by mouth every 6 hours as needed for nausea/vomiting. 90 tablet 0 FLUoxetine (PROZAC) 20 mg capsule Take 3 capsules by mouth once daily. 270 capsule 3 simvastatin (ZOCOR) 40 mg tablet Take 1 tablet by mouth daily at bedtime. 90 tablet 3 leflunomide (ARAVA) 20 mg tablet take 1 tablet by mouth once daily 30 tablet 2 abatacept/maltose (ORENCIA, WITH MALTOSE, INTRAVENOUS) Inject intravenously. cholecalciferol, Vitamin D3, (VITAMIN D3) 1,250 mcg (50,000 unit) cap capsule Take 1 capsule by mouth one time a week. 12 capsule 1 albuterol HFA (VENTOLIN HFA) 90 mcg/actuation inhaler Inhale 2 Puffs as instructed every 4 hours asneeded for wheezing/shortness of breath. 1 Inhaler 0 pregabalin (LYRICA) 150 mg capsule Take 1 capsule by mouth twice daily for 180 days. 60 capsule 5 aspirin 81 mg cap Take by mouth. furosemide (LASIX) 40 mg tablet Take 1 tablet by mouth once daily. 90 tablet 3 mometasone (NASONEX) 50 mcg/actuation nasal spray Use 2 Sprays in the nose once daily. Rinse mouth after use. 17 g 5 mometasone-formoterol (DULERA) 100-5 mcg/actuation inhaler Inhale 2 Puffs as instructed twice daily. 13 g 1 albuterol (PROVENTIL) 2.5 mg /3 mL (0.083 %) nebulizer solution Use 3 mL via nebulizer every 4 hours as needed for wheezing/shortness of breath. Use over 5- 15minutes. 90 mL 2 hyoscyamine (LEVSIN) 0.125 mg tablet Take 1 tablet by mouth every 6 hours as needed. 90 tablet 2 diphenhydrAMINE (BENADRYL) 25 mg tablet Take 25 mg by mouth daily at bedtime. acetaminophen (TYLENOL) 325 mg tablet Take by mouth every 6 hours as needed. albuterol (PROVENTIL) 2.5 mg /3 mL (0.083 %) nebulizer solution Use 3 mL via nebulizer every 6 hours as needed for Wheezing/Shortness of Breath. 1 Package 0 >Nebulizer For Home Nebulizer for home use. Diagnosis: Moderate persistent asthma with acute exacerbation and pneumonia 1 Each 0 cyclobenzaprine (FLEXERIL) 10 mg tablet Take 1 tablet by mouth twice daily as needed. 60 tablet 2 buPROPion XL (WELLBUTRIN XL) 150 mg 24 hr tablet Take 1 tablet by mouth once daily. 90 tablet 3 No current facility-administered medications for this visit. OBJECTIVE: BP 138/72 Pulse 98 Temp 36.4 C (97.6 F) Resp 18 Wt 93.9 kg (207 lb) SpO2 99% BMI 36.67 kg/m ROS: All systems reviewed and are otherwise negative Constitutional: Well developed, well nourished, A&O X3. ENT: Head is atraumatic, airway patent, mucosal membranes moist Eyes: EOMI, PERRL, no drainage, vision unchanged Neck: full ROM, no meningeal signs Cardiac: heart tones regular rate and rhythm Respiratory: lung CTA : no CVA tenderness MS: moves all extremities, no deformities noted Neuro: GCS 15 no focal deficits Skin: warm and dry with out rash, lesion or ecchymosis Psych: alert appropriate, speech clear Diagnostic testing: COVID/ Influenza A and B testing performed and results will be complete in the next 24-72 hours. The patient will be notified of the results in My Chart. MDM: Patient presented to the [facility] today for COVID and Influenza testing. Vital signs were evaluated and found to be within normal limits. Marimar Wang was in no acute distress. We discussed the COVID results will be back in the next 1-2 days. In accordance with the CDC guidelines, Nica Wang was instructed to quarantine, if indicated, based on symptoms and exposure. They will follow-up with their family doctor in the next 2-3 days. If symptoms worsen they will go straight to the emergency department for further evaluation and treatment. They voiced understandingof the plan of care and are in agreement. ASSESSMENT/PLAN: 1. Exposure to 2019 novel coronavirus - ICD9: V01.79, ICD10: Z20.822 - COVID WITH FLUA+B, ROUTINE Sarah De Luna APRN.TOBACCO SAMPLER documented in this encounterCleveland Clinic [facility]09-22-2022 Miscellaneous Notes* Telephone Encounter - Roxane Reilly MA - 04/19/2022 3:35 PM EDT Pharmacy faxed requesting the following refill. Requested Prescriptions Pending Prescriptions Disp Refills cyclobenzaprine (FLEXERIL) 10 mg tablet 60 tablet 2 Sig: Take 1 tablet by mouth twice daily as needed. Patient last appointment: 09/02/2019 Next Appointment: 05/31/2022 Patient Phone numbers: [phone] (home) Request is for script(s) to be escript to pharmacy. Roxane Reilly MA documented in this encounterCleveland [facility]09-22-2022 Miscellaneous Notes* Telephone Encounter - Roxane Reilly MA - 04/19/2022 3:34 PM EDT Pharmacy faxed requesting the following refill. Requested Prescriptions Pending Prescriptions Disp Refills cyclobenzaprine (FLEXERIL) 10 mg tablet 60 tablet 2 Sig: Take 1 tablet by mouth twice daily as needed. Patient last appointment: 09/02/2019 Next Appointment: 04/18/2022 Patient Phone numbers: [phone] (home) Request is for script(s) to be escript to pharmacy. Roxane Reilly MA documented in this encounterC[facility]09-01-2022 Note ORIGINAL EXAMINATION: WHOLE BODY BONE SCAN03/29/2022 2:36 pm TECHNIQUE: The patient received an intravenous injection of 25.8 mCi of Tc-99m MDP. Anterior and posterior images of the skeleton from skull vertex to feet were then acquired. Additional regional skeletal images were also obtained. COMPARISON: March 19, 2022 bone scan, August 29, 2021 radiograph pole wall HISTORY: ORDERING SYSTEM PROVIDED HISTORY: Reason for Exam: DISPLACED FRACTURE OF BASE OF NECK left hip injury July of 2021 with surgery, re-injury January of 2022. FINDINGS: Delayed osseous phase images demonstrate mild left hip soft tissue activity. There is photopenia secondary to left hip prosthesis. There is mild radiotracer deposition along the medial, lateral, and distal femoral component. Left knee photopenia with prosthesis is noted with mild periprosthetic activity. There are areas of arthritic uptake including the lumbar spine, right knee, ankles, mid feet, and toes. Additional focal radiotracer deposition at several right anterior ribs may reflect fractures versus costochondritis. Are Activity in the bilateral kidneys and the urinary bladder represent normal route of radiopharmaceutical excretion. IMPRESSION: 1. Redemonstration of mild left hip soft tissue activity, likely relating to soft tissue injury. 2. Mild periprosthetic uptake around the left femoral component has an appearance more suggestive of reactive bone turnover rather than fracture. 3. Additional incidental findings as described above. Interpreted by: Bola Ridley DO Preliminary Report By: Bola Ridley DO Electronically signed By Bola Ridley DO Dictated Date: 03/29/2022 3:03:34 PM Prelim Date: 03/29/2022 3:10:43 PM Sign Date: 03/29/2022 3:10:43 PM Ordering Provider: [facility]09-01-2022 Note ORIGINAL EXAMINATION: WHOLE BODY BONE SCAN03/29/2022 2:36 pm TECHNIQUE: The patient received an intravenous injection of 25.8 mCi of Tc-99m MDP. Anterior and posterior images of the skeleton from skull vertex to feet were then acquired. Additional regional skeletal images were also obtained. COMPARISON: March 19, 2022 bone scan, August 29, 2021 radiograph pole wall HISTORY: ORDERING SYSTEM PROVIDED HISTORY: Reason for Exam: DISPLACED FRACTURE OF BASE OF NECK left hip injury July of 2021 with surgery, re-injury January of 2022. FINDINGS: Delayed osseous phase images demonstrate mild left hip soft tissue activity. There is photopenia secondary to left hip prosthesis. There is mild radiotracer deposition along the medial, lateral, and distal femoral component. Left knee photopenia with prosthesis is noted with mild periprosthetic activity. There are areas of arthritic uptake including the lumbar spine, right knee, ankles, mid feet, and toes. Additional focal radiotracer deposition at several right anterior ribs may reflect fractures versus costochondritis. Are Activity in the bilateral kidneys and the urinary bladder represent normal route of radiopharmaceutical excretion. IMPRESSION: 1. Redemonstration of mild left hip soft tissue activity, likely relating to soft tissue injury. 2. Mild periprosthetic uptake around the left femoral component has an appearance more suggestive of reactive bone turnover rather than fracture. 3. Additional incidental findings as described above. Interpreted by: Bola Ridley DO Preliminary Report By: Bola Ridley DO Electronically signed By Bola Ridley DO Dictated Date: 03/29/2022 3:03:34 PM Prelim Date: 03/29/2022 3:10:43 PM Sign Date: 03/29/2022 3:10:43 PM Ordering Provider: [facility]08-30-2022 Miscellaneous Notes* Telephone Encounter - Sarah Benedict - 03/27/2022 3:30 PM EDT pATIENTS 05/17/2022 APPOINTMENT NEEDS RESCHEDULED DUE TO PROVIDER BEING OUT OF OFFICE. lEFT MESSAGEFOR PATIENT TO GET RESCHEDULED. documented in this encounterC[facility]08-25-2022 Miscellaneous Notes* Telephone Encounter - Sarah Benedict - 03/22/2022 9:16 AM EDT Canceled appointment for patient, left message that she needs to call back to reschedule. * Telephone Encounter - Sarah Benedict - 03/22/2022 9:16 AM EDT ----- Message from Shelby Almonte sent at 03/22/2022 8:34 AM EDT ----- Regarding: Spine/Leilani Colmenares(TOBACCO SAMPLER)/Missed Provider Call Subject Line Format: Medicine / [Provider Name] / [Issue] Patient has been identified by name and Date of (Y/N): Y Patient: Marimar Wang Date of : 1960 Provider for this encounter: Leilani Colmenares APRN.CNP Reason for the call/escalation: Patient missed phone call from provider. Patient requesting a call back. Was Patient Referred to [facility]/Seek Emergency Treatment (Y/N): N Did Patient Agree (Y/N): na Was An Attempt Made To Transfer The Patient To The Office (Y/N): N Were You Able To Reach Someone At The Office (Y/N): na If Yes - Patient Was Transferred To (Caregivers Name): na If No - Which [facility] Pediatric Critical Care Nurse Did You Speak With Regarding This Patient: na Was an appointment scheduled (Y/N): N Reason patient was requesting visit (RFV/signs and symptoms/diagnosis) : Missed Provider Burr Sander calling if other than patient: Patient Return call to if other than patient: na Best contact number: [phone] Thank you, Shelby Almonte March 22, 2022 8:34 AM documented in this encounterC[facility]08-15-2022 Miscellaneous Notes* Telephone Encounter - Rosio Buck LPN - 03/12/2022 9:49 AM EDT Pharmacy requesting the following refill. Requested Prescriptions Pending Prescriptions Disp Refills leflunomide (ARAVA) 20 mg tablet [Pharmacy Med Name: LEFLUNOMIDE 20 MG TABLET] 30 tablet 2 Sig: take 1 tablet by mouth once daily Patient last appointment: 01/30/2022 Michel VV Next Appointment: 05/31/2022 [place] Patient Phone numbers: [phone] (home) Request is for script(s) to be escript to pharmacy. [id number] [place] [address] [facility] [address] [phone] [id number] Rosio Buck LPN documented in this encounterCleveland [facility]07-07-2022 Miscellaneous Notes* Telephone Encounter - Taylor Quintanilla - 02/01/2022 10:27 AM EDT I have attempted to contact this patient by phone, Left brief message on [employer] stating that our next appointment that we have in [place] is 02/28/22 if this is okay for her to give me a call backat [phone] EXT [id number] Taylor Quintanilla documented in this encounterCleveland [facility]07-07-2022 Miscellaneous Notes* Telephone Encounter - Anyi Padron - 02/01/2022 9:59 AM EDT 1.Are you diabetic No 2. Are you on any blood thinners? No 3. Are you taking any aspirin? Yes. Please list the current medications being prescribed baby mary. 4. Have you had any recent imaging done on your body part that's being injected? No 5. Do you have any allergies to latex? No 6. Do you have any allergies to seafood? No 7. Do you have any allergies to shellfish? No 8. Do you have any allergies to x-ray dye? No 9. Are you taking Xanax for the procedure? No 10. Have you done physical therapy in the last year? No If yes, When and Where? (Medical Records Release needs to be signed.) 11. Were the pre-procedure instructions explained to the patient? Yes 12. Do you have a pacemaker? No 13. Do you have an internal stimulator of any kind? No If yes, please bring the remote with you to your procedure visit. 14. Have you received the COVID-19 Vaccine? No. If yes, date(s) received: (Patient should not receive a procedure including steroids 14 days prior to their first dose of theCOVID vaccine. They should not receive any procedure containing steroids in the time frame between their 1st and 2nd doses of the COVID vaccine. They should not receive a procedure containing steroids 14 days after their 2nd dose of the COVID vaccine.) Anyi Padron documented in this encounterCleveland [facility]07-07-2022 Instructions* Patient Instructions* Leilani Colmenares APRN.CNP - 02/01/2022 9:56 AM EDT Activity as tolerated Use Ice and/or heat as tolerated as needed documented in this encounterCleveland [facility]07-07-2022 History of Present illness Narrative* Leilani Colmenares APRN.CNP - 02/01/2022 9:36 AM EDT Images from the original note were not included. [facility] Today's Date: 02/01/2022 Last Visit: VV 07/26/21 with Chriss CASTANEDA Name: Marimar Neela Wang : 1960 Purpose: Established Patient Encounter Interval History: Since last encounter, Marimar Wang; PMH significant for FM, insomnia, HPL, CHF, HTN, asthma, COPD, anemia, RA, OA, osteoporosis, obesity, CAD, depression; reports that the chronic problem(s) of low back pain are Worse. She was scheduled for repeat Lumbar MBB in 2021, however she fell and fractured her LEFT hip with partial hip replacement for repair. She was then lost to follow up. She had one series of Lumbar MBB B/L L3/4, L4/5, L5/S1 on 07/12/21. Patient reported 100% relief for 7-10 days after the injection. She would like to proceed with injection therapy now that she has recovered from her hip surgery. Pain Description: o Timing: constant o Character: Spasms, Aching and Dull o Primary Location: Low back o Radiation: none o Exacerbating factors: unable to pinpoint exacerbating factors/positions o Relieving factors: unable to pinpoint positions/factors that are mitigating o Interferes with: physical activity, cooking and household cleaning o The patient reports 5-6 hours of uninterrupted sleep per night o The patient denies difficulty with bowel or bladder control, unintentional weight loss, fevers, chills, or night sweats and arm or leg weakness. New Problems reported: None Recall: Patient of Dr. Mitchell Current Status: INTAKE PAIN ASSESSMENT 01/25/2022 02/01/2022 Are you having pain associated with your visit today? No Yes, Provider notified Pain Scales - Verbal (Numeric Rating or Visual Analog Scale) Pain Level 0 7 Pain Location - Back Description - Sharp Duration Amount of Time - - Duration Units - Years Frequency - Continuous Intervention/Comfort measure - Other: See comment Comments - nothing is helping Pain Assessment (RN/RECONCILEMENT CLERK) - - Current Pain Medications: o Opioids: o NSAIDS: o Anti-depressants: Wellbutrin, prozac o Anti-convulsants: Lyrica 150mg BID o Muscle relaxants: Flexeril 10mg BID o Others: Tylenol Analgesia: adequate Current Anti-Coagulant Use: Yes: Baby Aspirin Compliance: Safety Checklist: Are you taking proper precautions to safe guard your medication? Yes Taking the medications as prescribed? Yes Getting pain medications from another physician? No Obtaining pain medication from another source? No Sharing medications with friends/family? No Quality of life improved as a result of taking these medications? Yes Any side effect with this medication? No Justification for Continued Opioid Care: Adequate analgesia? Yes Aberrant drug seeking behavior? No Adverse reactions? No Medications improve quality of life? Yes Allergies: ALLERGIES Allergen Reactions Cymbalta [Duloxetin* Intolerance Headaches Dilaudid [Hydromorp* Vomiting Horse Serum [Other] Morphine Vomiting Nsaids (Non-Steroid* Anaphylaxis Had anaphylactic reaction to Aleve Vibramycin [Doxycyc* Vicodin [Hydrocodon* Vomiting Can take if given antiemetic at same time Data Reviewed: Reviewed personally on today's date 02/01/2022 Relevant Imaging: MRI Spine Report MRI LUMBAR SPINE WO IVCON Exam End: 07/05/2021 3:27 PM (Final result) Narrative: * * *Final Report* * * DATE OF EXAM: Jul 05 2021 3:27PM LEIA [id number] - MRI LUMBAR SPINE WO IVCON / PROCEDURE REASON: Spinal stenosis of lumbar region without neurogenic claudication * * * * Physician Interpretation * * * * EXAMINATION: MRI LUMBAR SPINE WO IVCON CLINICAL HISTORY: Spinal stenosis of lumbar region without neurogenic claudication TECHNIQUE: Routine lumbosacral spine MR protocol without gadolinium. MQ: [id number] COMPARISON: None available. RESULT: Counting reference: Lumbosacral junction. For the purposes of this report, L4-5 is considered the level of the iliac crest and assume there are 5 lumbar-type vertebrae. Anatomic variant: None. Localizer images: No additional findings. Alignment: Trace grade 1 degenerative anterolisthesis of L4 on L5 related to facet arthropathy. Alignment otherwise maintained. Mild multilevel disc desiccation, most prominent at T11-12, L4-5, and L5-S1. Bone marrow signal/fracture: Minimal marrow edema at the superior endplate of T11, likely degenerative. No evidence of pathologic marrow infiltration. No evidence of prior fracture. Conus: The conus terminates at L1 and is within normal limits of signal intensity and morphology. Paraspinal soft tissues: Paraspinal soft tissues are within normal limits. Lower thoracic spine: At T10-11, canal and foramina are patent. At T11-12, mild disc bulge and superimposed central small extrusion with slight inferior extension, with mild canal narrowing. Foramina are patent. T12-L1: Canal and foramina are patent. L1-L2: Canal and foramina are patent. L2-L3: Canal and foramina are patent. Left worse than right facet arthropathy. L3-L4: Canal and foramina are patent. Bilateral facet arthropathy. L4-L5: Mild disc bulge with slight posterior disc uncovering. Moderate bilateral facet arthropathy. Spinal canal is patent. Left foramen is patent. Mild right foraminal narrowing. L5-S1: Canal and foramina are patent. Moderate left and mild right facet arthropathy. Sacrum and iliac wings: Mild bilateral sacroiliac joint degenerative changes with anterior osteophyte formation. Otherwise unremarkable. Impression: IMPRESSION: Mild spondylotic changes as detailed noting multilevel facet arthropathy, most pronounced at L4-5 and L5-S1. No significant canal or foraminal narrowing. Anatomic Thoracic/Lumbar Variant: None. L4-5 is considered the level of the iliac crest and assume there are 5 lumbar-type vertebrae. Bike Mechanic: PSCB Transcribe Date/Time: Jul 05 2021 4:28P Dictated by : VIRIDIANA LEW MD This examination was interpreted and the report reviewed and electronically signed by: VIRIDIANA LEW MD on Jul 05 2021 4:36PM EST Complete Results Electrodiagnostic Study (EMG): None Recent labs: Creatinine Date Value Ref Range Status 11/02/2021 0.63 0.58 - 0.96 mg/dL Final @lastegfr(gfr)@ No results found for: PCGLUCOSE Pain Procedures: DATE PROCEDURE IMPROVEMENT 07/12/22 MBB B/L L3/4, L4/5, L5/S1 100% relief for 10 days Compliance: PDMP website checked and validated. All prescriptions have been APPROPRIATELY filled. No suspiciousactivity was identified. 02/01/2022 by Leilani Colmenares APRN.TOBACCO SAMPLER Last Drug screen: Not Applicable appropriate. Risk Assessment: BHAVANA-7: No flowsheet data found.(0-4) minimal anxiety, (5-9) mild anxiety, (10-14) moderate anxiety, (15-21) severe anxiety PHQ-9: PHQ-9 08/04/2021 08/04/2021 10/02/2021 Score 8 8 8 (0-4) minimal depression, (5-9) mild depression, (10-14) moderate depression, (15-19) moderately severe depression, (20-27) severe depression Opioid Risk Tool: Family History of Substance Abuse: 0 - No Personal History of Substance Abuse: 0 - No Age between 16-45: 0 - No History of Pre-Adolescence Sexual Abuse: 0 - No Psychological Disease: Yes ADD/ADHD/OCD/Bipolar/Schizophrenia: No Depression: 1 - Yes Risk Total: 1 (0-3, low risk or no risk; 4-7, moderate risk, 8+, high risk) Current Medications, Past Medical History, Past Surgical History, Family History, Social History and Review of Systems: On today's date, 02/01/2022, noted above, I have confirmed and edited as necessary, the PFSH and ROS obtained by others. Physical Exam: 02/01/22 0920 Pulse: 60 Resp: 16 SpO2: 95% Constitutional: obese HEENT: Normal Cephalic, Atraumatic, Non-icteric sclera Eyes: Conjunctiva clear. No discharge from eyes Cardiovascular: Appears well perfused Lymphatic: No visible regional lymphadenopathy Skin: No visible rashes or ecchymosis Psychiatric: Full affect, Alert, Pleasant LUMBAR MUSCULOSKELETAL/NEURO EXAM Inspection: - Symmetric without atrophy Posture: Slouching posture, loss of lordosis Gait: Antalgic, ambulates unassisted Tandem Walk: Intact Spine Range of Motion: - Flexion: Limited with pain - Extension: Limited with pain -Rotation: Limited with pain Palpation: - Lumbar Paraspinal Tenderness: Concordant in the Bilateral lumbar paraspinals - Paraspinal Spasms: None - Facet Loading: Right-positive; Left-positive - Greater Trochanter: Concordant tenderness Left Strength: LEFT RIGHT Iliopsoas (L2) 5 5 Quadriceps (L3) 5 5 Anterior Tibialis (L4): 5 5 Exten Hallucis Longus (L5) 5 5 Gastrocnemius (S1): 5 5 Muscle Tone: - Normal and symmetric Neural Tension Signs: -Straight Leg Exam Negative Bilateral lower limb(s) -Contralateral Straight Leg Raise Negative Bilateral lower limb(s) Sensation: - intact to light touch in the L2-S2 Bilateral lower limb dermatomes Reflexes: LEFT RIGHT Patellar (L4) Decreased 1+ Decreased 1+ Achilles (S1) Decreased 1+ Decreased 1+ Clonus Negative Negative Hip Range of Motion: - Decreased 50% with Concordant pain at end range internal rotation - Decreased 25% with Concordant pain at end range external rotation Sacroiliac Maneuvers: - SIJ tenderness: Negative Bilateral - Frank's: positive for concordant pain at the anterior hip joint Lubna's Signs: Deferred Diagnoses: (M47.816) Lumbar spondylosis (primary encounter diagnosis) (M54.50, G89.29) Chronic bilateral low back pain without sciatica (M79.18) Myofascial pain (M79.7) Fibromyalgia Impression & Plan: 61 year old female with significant past medical history for FM, insomnia, HPL, CHF, HTN, asthma, COPD, anemia, RA, OA, osteoporosis, obesity, CAD, depression, who presents with complaint(s) of chronic low back pain. Patient was scheduled for repeat Lumbar MBB, but she fell and fx her LEFT hip and needed a partial hip replacement. She was then lost to follow up. She reports 100% relief with lumbar MBB on 07/12/21lasting for ~10 days post injection. She has facet mediated pain on examination with facet hypertrophy noted on her MRI. WE will plan torepeat Lumbar MBB with plan to proceed with RFA if she has a positive response to the repeat. Marimar Wang would benefit from the following to decrease pain, improve function and/or work participation, and improve quality of life: Interventional Procedure(s): Lumbar MBB B/L L4/5, L5/S1 x1 with fluoro guidance The risks, benefits, alternative treatment options and prognosis of the procedure were discussed and all of the patient's questions/concerns were addressed to the patient's satisfaction. The patient expressed understanding and gave verbal consent to proceed. Medications: Refill: Continue Lyrica 150mg BID as directed Continue Flexeril 10mg BID prn pain No medications selected for refill. UDS, NAOIC/ORT: Reviewed and consistent, ORT low risk Functional Yazidism: No changes-continue current regimen Additional Studies: None Referrals: None Additional: We will plan for Lumbar RFA if positive response to repeat lumbar MBB. Medication use(s) and side effects reviewed with patient today with verbalized understanding. Patient is happy and agreeable with this plan. All questions were answered and patient verbalized understanding. Depending on response to the above plan, consider: Follow-up: next available for repeat MBB, 3 months for evaluation of response to treatment plan andoptimization, for medication evaluation, optimization and refill as appropriate Attribution: In addition to reviewing the information noted above, some elements copied from my most recent clinical note(s), including the physical exam (completed in entirety today), and the impression and plan sections, have been updated where appropriate. All reflect current medical decision making from today's date. Leilani Colmenares APRN.TOBACCO SAMPLER Pain [facility] * Kailyn Denney MA - 02/01/2022 9:18 AM EDT Review of Systems Constitutional: Negative for activity change, chills, fever and unexpected weight change. Gastrointestinal: Negative for bowel retention or incontinence Genitourinary: Negative for difficulty urinating. Negative for bladder retention or incontinence Musculoskeletal: Positive for arthralgias, back pain, gait problem, joint swelling and myalgias. Negative for neck pain and neck stiffness. Neurological: Positive for headaches. Negative for weakness and numbness. Psychiatric/Behavioral: Negative for dysphoric mood, sleep disturbance and suicidal ideas. The patient is not nervous/anxious. documented in this encounterCleveland [facility]07-05-2022 History of Present illness Narrative* Sarah Pearson PA-C - 01/30/2022 12:54 PM EDT Images from the original note were not included. [facility] Sarah Pearson [address] [facility] [address] [place] [address] RHEUMATOLOGY PROGRESS NOTE VIRTUAL VISIT PROGRESS NOTE This is a virtual visit using [employer] video visit. It required patient-provider interaction for themedical decision making as documented below. Marimar Wang is a 61 year old female seen for RA, osteoporosis. Orencia IV every 4 weeks, Arava 20 mg daily Reclast IV yearly, Vit D 50,000 units daily Both Reclast and Orencia last given 01/25/2022 More pain in MCP 2 on the left, no swelling, AM stiffness lasting 2-3 hours. Uses Tylenol No falls or fx Jul 2021 - fell on ice fracture NOF. Also had stress fracture which could have been old. Had hemiarthroplasty. Recovering. COVID 04/06/2021, whole month, COVID pneumonia, pleurisy, bronchitis Following closely with pulmonology, recent PFTs are stable Seeing pain mgmt for low back and hips, off gabapentin- now on Lyrica 150 mg bid. She gets procedures for her low back HISTORY REVIEWED (electronic chart updated): PAST MEDICAL HISTORY Diagnosis Date Asthma Homer lesion, acute 01/30/2019 Carotid artery stenosis bilateral- US in epic COPD (chronic obstructive pulmonary disease) (HCC) Depression Diverticulosis Fibromyalgia GERD (gastroesophageal reflux disease) GI bleed 02/2019 Hiatal hernia Repaired 05/07/19 Hyperlipidemia Hypertension Insomnia Iron deficiency anemia Osteoarthritis Osteoporosis Piriformis syndrome PVC's (premature ventricular contractions) Rheumatoid arthritis (HCC) Sjogren's disease (HCC) Vitamin D deficiency PAST SURGICAL HISTORY Procedure Laterality Date ARTHRP KNE CONDYLE&PLATU MEDIAL&LAT COMPARTMENTS 2009 Total left knee surgery COLONOSCOPY FLX DX W/COLLJ SPEC WHEN PFRMD 04/11/2015 diverticulosis, no specimens collected Dr. Tapia COLONOSCOPY FLX DX W/COLLJ SPEC WHEN PFRMD 09/23/[address] Tapia EGD 01/30/2019 large hiatal hernia with Homer erosions, likely source of GI bleed Dr. Rudolph EGD 09/15/2007 patulous GE junction, nonobstructive Schatzki's ring, bile reflux of stomach, hiatal hernia, neg H pylori EGD EUS N/A 07/07/2020 3 cm sliding hiatal hernia, no obst Schatzki's ring, mild duodenitis, mild/moderate gastritis EGD TRANSORAL BIOPSY SINGLE/MULTIPLE 02/17/2020 retained contents in stomach, bxs negative Dr. Pat ESOPHAGOGASTRODUODENOSCOPY TRANSORAL DIAGNOSTIC 05/07/2016 sliding hiatal hernia, no source of GI bleed Dr. Laureano ESOPHAGOGASTRODUODENOSCOPY TRANSORAL DIAGNOSTIC 09/23/2017 normal, bxs negative Dr. Tapia GI TRC IMG INTRALUMINAL ESOPHAGUS-ILEUM W/I&R 10/04/2017 Normal smallbowel Capsule endosocpy HIATAL HERNIA REPAIR HX 04/2019 LAPS RPR PARAESPHGL HRNA INCL FUNDPLSTY W/MESH 05/07/2019 Dr. Pat MRI BRAIN W/O CONTRAST 07/20/2011 PAST SURGICAL HISTORY OF 1983, 1986 2 C Sections PAST SURGICAL HISTORY OF 1982 Left shoulder, has screw in shoulder FAMILY HISTORY Problem Relation Age of Onset Hypertension Mother Stroke Mother Cataract Mother Asthma Mother other (ESRD) Mother Heart Father Glaucoma Father Ischemic Heart Disease Father age 42 from [place] Hypertension Sister other (Other) Brother 18 MVA Depression Daughter other (PTSD) Daughter other (Anxiety) Daughter other (svt) Daughter Diabetes Daughter Social History Tobacco Use Smoking status: Former Smoker Packs/day: 1.00 Years: 31.00 Pack years: 31.00 Types: Cigarettes Quit date: 01/01/2015 Years since quittin.0 Smokeless tobacco: Never Used Tobacco comment: ETS: Father in childhood home. Active smoker in current home. Vaping Use Vaping Use: Never used Substance Use Topics Alcohol use: No Drug use: Never Current Outpatient Medications Medication Sig cholecalciferol, Vitamin D3, (VITAMIN D3) 1,250 mcg (50,000 unit) cap capsule Take 1 capsule by mouth one time a week. cyclobenzaprine (FLEXERIL) 10 mg tablet take 1 tablet by mouth twice a day if needed albuterol HFA (VENTOLIN HFA) 90 mcg/actuation inhaler Inhale 2 Puffs as instructed every 4 hours asneeded for wheezing/shortness of breath. promethazine (PHENERGAN) 25 mg tablet Take 1 tablet by mouth every 6 hours as needed for nausea/vomiting. pregabalin (LYRICA) 150 mg capsule Take 1 capsule by mouth twice daily for 180 days. leflunomide (ARAVA) 20 mg tablet Take 1 tablet by mouth once daily. buPROPion XL (WELLBUTRIN XL) 150 mg 24 hr tablet Take 1 tablet by mouth once daily. aspirin 81 mg cap Take by mouth. furosemide (LASIX) 40 mg tablet Take 1 tablet by mouth once daily. mometasone (NASONEX) 50 mcg/actuation nasal spray Use 2 Sprays in the nose once daily. Rinse mouth after use. mometasone-formoterol (DULERA) 100-5 mcg/actuation inhaler Inhale 2 Puffs as instructed twice daily. albuterol (PROVENTIL) 2.5 mg /3 mL (0.083 %) nebulizer solution Use 3 mL via nebulizer every 4 hours as needed for wheezing/shortness of breath. Use over 5-15minutes. simvastatin (ZOCOR) 40 mg tablet Take 1 tablet by mouth daily at bedtime. FLUoxetine (PROZAC) 20 mg capsule Take 3 capsules by mouth once daily. diphenhydrAMINE (BENADRYL ALLERGY) 25 mg tablet Take 25 mg by mouth daily at bedtime. acetaminophen (TYLENOL) 325 mg tablet Take by mouth every 6 hours as needed. albuterol (PROVENTIL) 2.5 mg /3 mL (0.083 %) nebulizer solution Use 3 mL via nebulizer every 6 hours as needed for Wheezing/Shortness of Breath. >Nebulizer For Home Nebulizer for home use. Diagnosis: Moderate persistent asthma with acute exacerbation and pneumonia hyoscyamine (LEVSIN) 0.125 mg tablet Take 1 tablet by mouth every 6 hours as needed. No current facility-administered medications for this visit. ALLERGIES Allergen Reactions Cymbalta [Duloxetin* Intolerance Headaches Dilaudid [Hydromorp* Vomiting Horse Serum [Other] Morphine Vomiting Nsaids (Non-Steroid* Anaphylaxis Had anaphylactic reaction to Aleve Vibramycin [Doxycyc* Vicodin [Hydrocodon* Vomiting Can take if given antiemetic at same time REVIEW OF SYSTEMS: GENERAL: feeling well without fatigue, no recent change in weight PHYSICAL EXAMINATION: VIDEO EXAM: (if completed, performed via video enabled technology) GENERAL: alert and appropriate, in no distress, well-hydrated, well nourished and happy, smiling, interactive EXTREMITIES: Able to make a tight fist with both hands. Labs: 10/2021 Creatinine0.63 Liver enzymes normal CRP normal CBC normal ESR 12 Serology: RF positive, CCP positive Radiology: IMPRESSION: Large hiatal hernia. Again seen is mild, diffuse bronchial wall thickening. Interval development of multifocal bilateral groundglass attenuation airspace opacities within both lungs, concerning for multifocal pneumonia. Interval follow-up examination after treatment is recommended in order to ensure resolution. Sequela of remote granulomatous disease. Interval development of tiny pulmonary nodules, measuring up to 2 mm in size. Incidental Finding: No follow-up imaging for this/these incidentally detected lung nodule(s) is recommended. If there are risk factors for lung malignancy, a follow-up chest CT exam could be obtained in 12 months. Interval development of anterior mediastinal lymphadenopathy. IMPRESSION: MODERATE TO MARKED OSTEOARTHRITIS OF THE PATELLOFEMORAL AND MEDIAL COMPARTMENT. NONDISPLACED MEDIAL MENISCUS TEAR. PARTIALLY RUPTURED MATTHEW'S CYST. Impression IMPRESSION: Mild spondylotic changes as detailed noting multilevel facet arthropathy, most pronounced at L4-5 and L5-S1. No significant canal or foraminal narrowing. Anatomic Thoracic/Lumbar Variant: None. L4-5 is considered the level of the iliac crest and assume there are 5 lumbar-type vertebrae. ASSESSMENT: (E55.9) Vitamin D deficiency (M05.79) Rheumatoid arthritis involving multiple sites with positive rheumatoid factor (HCC) 61-year-old woman is here for follow-up. Patient has seropositive rheumatoid arthritis, erosive osteoarthritis and osteoporosis. She was on Humira and Arava however discontinued due to being sick. Patient was switched to Orencia infusions. Doing well on combination Orencia infusions and Arava. Bone density shows improvement since starting Reclast. BMD 04/2020 shows osteoporosis with T-score -2.8. Would like her to continue Reclast yearly infusions. S/p Reclast 02/2018, 05/2019, 12/2020. Would like her to have 1 additional dose 12/2021, obtain bone density 04/2022 and then consider drug holid ay Continue vitamin D 50,000 units weekly. Patient said she saw pulmonology, was told she did not have RA-ILD. 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 Could consider [facility] recover clinic Following with cardiology for chronic diastolic heart failure, current therapy includes Lasix 40 mgdaily. We discussed about high alkaline phosphatase which is coming from both liver and bone. Discussed about the importance of keeping her cholesterol levels normal. Low vitamin D and osteoporosis are other causes for high alkaline phosphatase. Check vit D. Vanessa fundoplication completed, doing better. She has had left trochanteric bursitis in past. Recommend exercises and stretching. Injections can be considered in the future if needed. She is seeing spine and pain management and receiving procedures in her low back PLAN: Continue Orencia IV every 4 weeks Continue Arava 20 mg daily For osteoporosis, continue Reclast. May need to switch to Prolia or Forteo. Need PTH Obtain bone density 04/2022 Labs every 3 months with infusions Continue vitamin D, check vitamin D Follow-up in [address] Arias There are no Patient Instructions on file for this visit. Time: 11 min Sarah Pearson PA-C documented in this encounterC[facility] Miscellaneous Notes* Telephone Encounter - Candace Alvarenga MA - 01/19/2022 8:30 AM EDT Pharmacy faxed requesting the following refill. Pending Prescriptions Disp Refills CYCLOBENZAPRINE 10 MG TABLET 60 tablet 2 Sig: take 1 tablet by mouth twice a day if needed SHAUN: Yes Patient last appointment: 10/31/21 Next Appointment: 01/30/2022 Patient Phone numbers: [phone] (home) Request is for script(s) to be escript to pharmacy. Candace Alvarenga MA documented in this encounterC[facility]06-24-2022 Miscellaneous Notes* Telephone Encounter - Kiley Mejia LPN - 01/19/2022 7:41 AM EDT Patient phones requesting refills as follows: Pending Prescriptions Disp Refills ALBUTEROL SULFATE HFA 90 MCG/ACTUATION AEROSOL INHALER 1 Inhaler 0 Sig: Inhale 2 Puffs as instructed every 4 hours as needed for wheezing/shortness of breath. SHAUN: No DAIANA-10/06/21 Labs-11/02/21 NOV-02/06/22 Please review and advise. Kiley Mejia LPN documented in this [facility]06-14-2022 Miscellaneous Notes* Telephone Encounter - Tracy Jerry LPN - 01/09/2022 7:44 AM EDT Patient has been identified by name and date of : Yes Patient phones for refill(s): Pending Prescriptions Disp Refills PROMETHAZINE 25 MG TABLET 90 tablet 0 Sig: Take 1 tablet by mouth every 6 hours as needed for nausea/vomiting. SHAUN: No Date of last office visit in primary care: 10/06/21 next apt 02/06/22 Last 2 Encounter Wt Readings: Date: Wt: 12/28/2021 96.2 kg (212 lb) 11/30/2021 95.9 kg (211 lb 8 oz) Previous labs/tests for medication: Not applicable Please advise. Thank you. Tracy Jerry LPN documented in this encounterC[facility]06-09-2022 Miscellaneous Notes* Telephone Encounter - Savanna Flowers [place] [employer] - 01/04/2022 4:21 PM EDT Reclast APPROVED [id number] 01.25.2022 - 01.25.2023 per [facility] medicare Portal [facility] [place] [employer] documented in this encounterC[facility]04-25-2022 Miscellaneous Notes* Telephone Encounter - Kelly Blakely LPN - 11/20/2021 10:13 AM EDT Patient has been identified by name and date of : Yes Patient phones for refill(s): Pending Prescriptions Disp Refills PROMETHAZINE 25 MG TABLET 90 tablet 0 Sig: Take 1 tablet by mouth every 6 hours as needed for nausea/vomiting. SHAUN: No Date of last office visit in primary care: 10/06/21 Last 2 Encounter Wt Readings: Date: Wt: 11/02/2021 95.6 kg (210 lb 12.8 oz) 10/06/2021 95.7 kg (211 lb) Previous labs/tests for medication: Not applicable Please advise. Thank you. Kelly Blakely LPN documented in this encounterC[facility]04-25-2022 Miscellaneous Notes* Telephone Encounter - Kelly Blakely LPN - 11/20/2021 10:11 AM EDT Patient has been identified by name and date of : Yes Patient phones for refill(s): Pending Prescriptions Disp Refills BUPROPION XL 150 MG TAB 90 tablet 3 Sig: Take 1 tablet by mouth once daily. SHAUN: No Date of last office visit in primary care: 10/06/21 Last 2 Encounter Wt Readings: Date: Wt: 11/02/2021 95.6 kg (210 lb 12.8 oz) 10/06/2021 95.7 kg (211 lb) Previous labs/tests for medication: Not applicable Please advise. Thank you. Kelly Blakely LPN documented in this encounterC[facility]01-31-2022 Hospital Discharge instructions Follow Up Care 08/28/2021 21:53:27 With:BELLA GILLESPIE MD, Orthopedic, Wound Care, Wound Care Service, Orthopedic, Wound Care, Wound Care Service, Orthopedic, Wound Care, Wound Care Service Address: [address] [place] [address] [address] [address] [facility] [address] [place] [address]- When:09/13/2021 08:30:00 Comments:Follow up With:Patient is discharged to [facility] LOC. Please call report to [phone] Address:Unknown When:1-2 days With:SELENE PIERRE Address: [address] [place] [address]- Business (1) When:1-2 days [facility] 01-31-2022 Evaluation + Plan noteExtracted from: Title:History and Physical Author:ELIUD RUFF DO Date:08/28/21 Left femoral neck fracture -61-year-old female presents after ground-level fall while slipping on ice this was a closed, isolated injury. Patient is NV intact. -I explained to the patient the need for surgical intervention to prevent major morbidity mortality with nonoperative treatment. Patient voiced understanding and was agreeable to proceed. -Will obtain informed consent and plan for left total versus hemihip arthroplasty with [facility]. Discuss all treatment options with patient and she is agreeable with whatever we think is best -Hold any chemical DVT prophylaxis at this time - will order SCDs -Pain control -as ordered -Bedrest, NWB left lower extremity -N.p.o. at midnight -Ancef on-call to the OR -We will order type and screen preoperatively. Patient's current hemoglobin , platelets -We will consult medical team for medical optimization and to follow medically -Plan discussed with attending Addendum by ELIUD RUFF DO on August 29, 2021 05:45:06 EST Preoperative hemoglobin 13.7, platelets 211 [facility] 10-04-2021 History of Present illness Narrative* Vince, Lorie K, RT(R) - 05/01/2021 2:10 PM EDT Radiology Service Progress Note PATIENT NAME: Marimar Wang DATE OF SERVICE: May 01, 2021 TIME: 2:03 PM PATIENT IDENTITY VERIFICATION COMPLETED USING TWO (2) IDENTIFIERS: Name and Date of confirmedby patient verbally. FALL SCREENING: Has the patient had 2 falls in the last year or 1 fall with injury or currently using an Ambulatory Assistive Device (Walker, Cane, Wheelchair, Crutches, etc.)? No PATIENT GENDER DATA: Female. status: : No status: NO. PATIENT RELEVANT IMPLANT DATA REVIEWED: Not Applicable RADIOLOGY DEPARTMENT: General X-ray: Exam(s) Completed: Chest X-Ray PERIPHERAL IV DATA: Not applicable SIGNED BY: RT [place](R) May 01, 2021 2:03 PM documented in this encounterC[facility]09-23-2021 Miscellaneous Notes* Telephone Encounter - Selene Pierre MD - 04/20/2021 8:22 AM EDT Noted * Telephone Encounter - Delilah Mckay RN - 04/19/2021 12:04 PM EDT Protocol recommends go to ER now or pcp triage. Patient agreeable to ER. Will have family drive her. Reason for Disposition [1] MODERATE vomiting (e.g., 3 - 5 times/day) AND [2] age > 60 years Answer Assessment - Initial Assessment Questions 1. VOMITING SEVERITY Moderate 4-5 times vomiting in last 24 hours. Has been vomiting for 2 weeks. Dx with covid + on 04-06-21. 2. ONSET: 2 weeks ago, covid triggered it. 3. FLUIDS Only sipping on fluids, if doesn't will throw up. Did not eat today- did not eat yesterday- did not eat the day before- cannot remember the last time she ate. Drinking water, coffee, and black tea. 4. ABDOMINAL PAIN No 5. DIARRHEA: Has diarrhea- none today. Last time had diarrhea was [id number] times last evening. 6. CONTACTS: 3 grandchildren there, but do not have symptoms. 7. CAUSE: Covid 8. HYDRATION STATUS: Dry mouth. Has weakness but can stand, cannot go very far. Last void this morning around 7:30 am. Urine was not dark. 9. OTHER SYMPTOMS: Had headache in the beginning, but they stopped. No dizziness. Not vomiting blood. 10. : No. Protocols used: [id number] documented in this encounterCleveland [facility]07-14-2021 History of Present illness Narrative* Teagan Marin Tech - 02/08/2021 10:45 AM EDT Radiology Service Progress Note PATIENT NAME: Marimar Wang DATE OF SERVICE: February 08, 2021 TIME: 10:52 AM PATIENT IDENTITY VERIFICATION COMPLETED USING TWO (2) IDENTIFIERS: Name and Date of confirmedby patient verbally. FALL SCREENING: Has the patient had 2 falls in the last year or 1 fall with injury or currently using an Ambulatory Assistive Device (Walker, Cane, Wheelchair, Crutches, etc.)? No PATIENT GENDER DATA: Female. status: : No status: NO. PATIENT RELEVANT IMPLANT DATA REVIEWED: Not Applicable RADIOLOGY DEPARTMENT: General X-ray: Exam(s) Completed: Lower Extremity X- Ray(s): Knee, AP / Lat / Tunne / Merchant Right and Wt. Bearing PERIPHERAL IV DATA: Not applicable SIGNED BY: Gabrielle Jimenez February 08, 2021 10:52 AM documented in this encounterCleveland [facility]04-26-2021 History of Past illness Narrative* Problem Noted Date Resolved Date Sacroiliitis 11/21/2020 03/06/2021 Tear of medial meniscus of right knee 09/24/2019 10/02/2019 GI bleed 01/28/2019 07/31/2019 Absolute anemia 09/05/2017 02/06/2018 Overview: Added automatically from request for surgery [id number] Morbid obesity with BMI of 40.0-44.9, adult 01/2607/31/2019 SOB (shortness of breath) 02/22/20162019 Last Assessment & Plan: Patient was a smoker in the past , has 31 pack years of smoking Last year her lung volumes showed some restriction. We were treating for asthma with the steroid inhaler but she might have to be on a LABA as she has been having worsening exercise tolerance. Her anemia in the past contributed to this too. Need to recheck her levels Morbid obesity 10/18/2015 02/12/2017 Overview: Gained 100 pounds on the steroids , was 150 before starting it now is almost 240. Last Assessment & Plan: Gained 100 pounds on the steroids , was 150 before starting it now is almost 240. 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 His appetite is back. She also had been to a long trip since she saw me the last time., this was a 3 week trip. And has tolerated it well. Abdominal pain 03/11/2014 04/22/2014 Last Assessment & Plan: This turned out to be more back pain and the back pain probably was from plerisy, it has resolved, it is not gall stones any ways ,we investigated appropriately for it. 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, she thinks it is from her RA, wants a wrist splint documented as of this encounter (statuses as of 11/01/2021) [facility]04-[facility] History of Past illness Narrative* Problem Noted Date Resolved Date Sacroiliitis 11/21/2020 03/06/2021 Tear of medial meniscus of right knee 09/24/2019 10/02/2019 GI bleed 01/28/2019 07/31/2019 Absolute anemia 09/05/2017 02/06/2018 Overview: Added automatically from request for surgery [id number] Morbid obesity with BMI of 40.0-44.9, adult 01/2607/31/2019 SOB (shortness of breath) 02/22/20162019 Last Assessment & Plan: Patient was a smoker in the past , has 31 pack years of smoking Last year her lung volumes showed some restriction. We were treating for asthma with the steroid inhaler but she might have to be on a LABA as she has been having worsening exercise tolerance. Her anemia in the past contributed to this too. Need to recheck her levels Morbid obesity 10/18/2015 02/12/2017 Overview: Gained 100 pounds on the steroids , was 150 before starting it now is almost 240. Last Assessment & Plan: Gained 100 pounds on the steroids , was 150 before starting it now is almost 240. 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 His appetite is back. She also had been to a long trip since she saw me the last time., this was a 3 week trip. And has tolerated it well. Abdominal pain 03/11/2014 04/22/2014 Last Assessment & Plan: This turned out to be more back pain and the back pain probably was from plerisy, it has resolved, it is not gall stones any ways ,we investigated appropriately for it. 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, she thinks it is from her RA, wants a wrist splint documented as of this encounter (statuses as of 11/02/2021) [facility] History of Past illness Narrative* Problem Noted Date Resolved Date Sacroiliitis 11/21/2020 03/06/2021 Tear of medial meniscus of right knee 09/24/2019 10/02/2019 GI bleed 01/28/2019 07/31/2019 Absolute anemia 09/05/2017 02/06/2018 Overview: Added automatically from request for surgery [id number] Morbid obesity with BMI of 40.0-44.9, adult 01/2607/31/2019 SOB (shortness of breath) 02/22/20162019 Last Assessment & Plan: Patient was a smoker in the past , has 31 pack years of smoking Last year her lung volumes showed some restriction. We were treating for asthma with the steroid inhaler but she might have to be on a LABA as she has been having worsening exercise tolerance. Her anemia in the past contributed to this too. Need to recheck her levels Morbid obesity 10/18/2015 02/12/2017 Overview: Gained 100 pounds on the steroids , was 150 before starting it now is almost 240. Last Assessment & Plan: Gained 100 pounds on the steroids , was 150 before starting it now is almost 240. 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 His appetite is back. She also had been to a long trip since she saw me the last time., this was a 3 week trip. And has tolerated it well. Abdominal pain 03/11/2014 04/22/2014 Last Assessment & Plan: This turned out to be more back pain and the back pain probably was from plerisy, it has resolved, it is not gall stones any ways ,we investigated appropriately for it. 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, she thinks it is from her RA, wants a wrist splint documented as of this encounter (statuses as of 11/20/2021) [facility] History of Past illness Narrative* Problem Noted Date Resolved Date Sacroiliitis 11/21/2020 03/06/2021 Tear of medial meniscus of right knee 09/24/2019 10/02/2019 GI bleed 01/28/2019 07/31/2019 Absolute anemia 09/05/2017 02/06/2018 Overview: Added automatically from request for surgery [id number] Morbid obesity with BMI of 40.0-44.9, adult 01/2607/31/2019 SOB (shortness of breath) 02/22/20162019 Last Assessment & Plan: Patient was a smoker in the past , has 31 pack years of smoking Last year her lung volumes showed some restriction. We were treating for asthma with the steroid inhaler but she might have to be on a LABA as she has been having worsening exercise tolerance. Her anemia in the past contributed to this too. Need to recheck her levels Morbid obesity 10/18/2015 02/12/2017 Overview: Gained 100 pounds on the steroids , was 150 before starting it now is almost 240. Last Assessment & Plan: Gained 100 pounds on the steroids , was 150 before starting it now is almost 240. 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 His appetite is back. She also had been to a long trip since she saw me the last time., this was a 3 week trip. And has tolerated it well. Abdominal pain 03/11/2014 04/22/2014 Last Assessment & Plan: This turned out to be more back pain and the back pain probably was from plerisy, it has resolved, it is not gall stones any ways ,we investigated appropriately for it. 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, she thinks it is from her RA, wants a wrist splint documented as of this encounter (statuses as of 11/20/2021) [facility] of Past illness Narrative* Problem Noted Date Resolved Date Sacroiliitis 11/21/2020 03/06/2021 Tear of medial meniscus of right knee 09/24/2019 10/02/2019 GI bleed 01/28/2019 07/31/2019 Absolute anemia 09/05/2017 02/06/2018 Overview: Added automatically from request for surgery [id number] Morbid obesity with BMI of 40.0-44.9, adult 01/2607/31/2019 SOB (shortness of breath) 02/22/20162019 Last Assessment & Plan: Patient was a smoker in the past , has 31 pack years of smoking Last year her lung volumes showed some restriction. We were treating for asthma with the steroid inhaler but she might have to be on a LABA as she has been having worsening exercise tolerance. Her anemia in the past contributed to this too. Need to recheck her levels Morbid obesity 10/18/2015 02/12/2017 Overview: Gained 100 pounds on the steroids , was 150 before starting it now is almost 240. Last Assessment & Plan: Gained 100 pounds on the steroids , was 150 before starting it now is almost 240. 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 His appetite is back. She also had been to a long trip since she saw me the last time., this was a 3 week trip. And has tolerated it well. Abdominal pain 03/11/2014 04/22/2014 Last Assessment & Plan: This turned out to be more back pain and the back pain probably was from plerisy, it has resolved, it is not gall stones any ways ,we investigated appropriately for it. 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, she thinks it is from her RA, wants a wrist splint documented as of this encounter (statuses as of 11/21/2021) [facility]04-26-2021 History of Past illness Narrative* Problem Noted Date Resolved Date Sacroiliitis 11/21/2020 03/06/2021 Tear of medial meniscus of right knee 09/24/2019 10/02/2019 GI bleed 01/28/2019 07/31/2019 Absolute anemia 09/05/2017 02/06/2018 Overview: Added automatically from request for surgery [id number] Morbid obesity with BMI of 40.0-44.9, adult 01/2607/31/2019 SOB (shortness of breath) 02/22/20162019 Last Assessment & Plan: Patient was a smoker in the past , has 31 pack years of smoking Last year her lung volumes showed some restriction. We were treating for asthma with the steroid inhaler but she might have to be on a LABA as she has been having worsening exercise tolerance. Her anemia in the past contributed to this too. Need to recheck her levels Morbid obesity 10/18/2015 02/12/2017 Overview: Gained 100 pounds on the steroids , was 150 before starting it now is almost 240. Last Assessment & Plan: Gained 100 pounds on the steroids , was 150 before starting it now is almost 240. 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 His appetite is back. She also had been to a long trip since she saw me the last time., this was a 3 week trip. And has tolerated it well. Abdominal pain 03/11/2014 04/22/2014 Last Assessment & Plan: This turned out to be more back pain and the back pain probably was from plerisy, it has resolved, it is not gall stones any ways ,we investigated appropriately for it. 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, she thinks it is from her RA, wants a wrist splint documented as of this encounter (statuses as of 11/27/2021) [facility]04-26-2021 History of Past illness Narrative* Problem Noted Date Resolved Date Sacroiliitis 11/21/2020 03/06/2021 Tear of medial meniscus of right knee 09/24/2019 10/02/2019 GI bleed 01/28/2019 07/31/2019 Absolute anemia 09/05/2017 02/06/2018 Overview: Added automatically from request for surgery [id number] Morbid obesity with BMI of 40.0-44.9, adult 01/2607/31/2019 SOB (shortness of breath) 02/22/20162019 Last Assessment & Plan: Patient was a smoker in the past , has 31 pack years of smoking Last year her lung volumes showed some restriction. We were treating for asthma with the steroid inhaler but she might have to be on a LABA as she has been having worsening exercise tolerance. Her anemia in the past contributed to this too. Need to recheck her levels Morbid obesity 10/18/2015 02/12/2017 Overview: Gained 100 pounds on the steroids , was 150 before starting it now is almost 240. Last Assessment & Plan: Gained 100 pounds on the steroids , was 150 before starting it now is almost 240. 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 His appetite is back. She also had been to a long trip since she saw me the last time., this was a 3 week trip. And has tolerated it well. Abdominal pain 03/11/2014 04/22/2014 Last Assessment & Plan: This turned out to be more back pain and the back pain probably was from plerisy, it has resolved, it is not gall stones any ways ,we investigated appropriately for it. 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, she thinks it is from her RA, wants a wrist splint documented as of this encounter (statuses as of 11/30/2021) [facility]04-26-2021 History of Past illness Narrative* Problem Noted Date Resolved Date Sacroiliitis 11/21/2020 03/06/2021 Tear of medial meniscus of right knee 09/24/2019 10/02/2019 GI bleed 01/28/2019 07/31/2019 Absolute anemia 09/05/2017 02/06/2018 Overview: Added automatically from request for surgery [id number] Morbid obesity with BMI of 40.0-44.9, adult 01/2607/31/2019 SOB (shortness of breath) 02/22/20162019 Last Assessment & Plan: Patient was a smoker in the past , has 31 pack years of smoking Last year her lung volumes showed some restriction. We were treating for asthma with the steroid inhaler but she might have to be on a LABA as she has been having worsening exercise tolerance. Her anemia in the past contributed to this too. Need to recheck her levels Morbid obesity 10/18/2015 02/12/2017 Overview: Gained 100 pounds on the steroids , was 150 before starting it now is almost 240. Last Assessment & Plan: Gained 100 pounds on the steroids , was 150 before starting it now is almost 240. 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 His appetite is back. She also had been to a long trip since she saw me the last time., this was a 3 week trip. And has tolerated it well. Abdominal pain 03/11/2014 04/22/2014 Last Assessment & Plan: This turned out to be more back pain and the back pain probably was from plerisy, it has resolved, it is not gall stones any ways ,we investigated appropriately for it. 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, she thinks it is from her RA, wants a wrist splint documented as of this encounter (statuses as of 12/22/2021) [facility]04-26-2021 History of Past illness Narrative* Problem Noted Date Resolved Date Sacroiliitis 11/21/2020 03/06/2021 Tear of medial meniscus of right knee 09/24/2019 10/02/2019 GI bleed 01/28/2019 07/31/2019 Absolute anemia 09/05/2017 02/06/2018 Overview: Added automatically from request for surgery [id number] Morbid obesity with BMI of 40.0-44.9, adult 01/2607/31/2019 SOB (shortness of breath) 02/22/20162019 Last Assessment & Plan: Patient was a smoker in the past , has 31 pack years of smoking Last year her lung volumes showed some restriction. We were treating for asthma with the steroid inhaler but she might have to be on a LABA as she has been having worsening exercise tolerance. Her anemia in the past contributed to this too. Need to recheck her levels Morbid obesity 10/18/2015 02/12/2017 Overview: Gained 100 pounds on the steroids , was 150 before starting it now is almost 240. Last Assessment & Plan: Gained 100 pounds on the steroids , was 150 before starting it now is almost 240. 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 His appetite is back. She also had been to a long trip since she saw me the last time., this was a 3 week trip. And has tolerated it well. Abdominal pain 03/11/2014 04/22/2014 Last Assessment & Plan: This turned out to be more back pain and the back pain probably was from plerisy, it has resolved, it is not gall stones any ways ,we investigated appropriately for it. 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, she thinks it is from her RA, wants a wrist splint documented as of this encounter (statuses as of 12/28/2021) [facility]04[facility] History of Past illness Narrative* Problem Noted Date Resolved Date Sacroiliitis 11/21/2020 03/06/2021 Tear of medial meniscus of right knee 09/24/2019 10/02/2019 GI bleed 01/28/2019 07/31/2019 Absolute anemia 09/05/2017 02/06/2018 Overview: Added automatically from request for surgery [id number] Morbid obesity with BMI of 40.0-44.9, adult 01/2607/31/2019 SOB (shortness of breath) 02/22/20162019 Last Assessment & Plan: Patient was a smoker in the past , has 31 pack years of smoking Last year her lung volumes showed some restriction. We were treating for asthma with the steroid inhaler but she might have to be on a LABA as she has been having worsening exercise tolerance. Her anemia in the past contributed to this too. Need to recheck her levels Morbid obesity 10/18/2015 02/12/2017 Overview: Gained 100 pounds on the steroids , was 150 before starting it now is almost 240. Last Assessment & Plan: Gained 100 pounds on the steroids , was 150 before starting it now is almost 240. 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 His appetite is back. She also had been to a long trip since she saw me the last time., this was a 3 week trip. And has tolerated it well. Abdominal pain 03/11/2014 04/22/2014 Last Assessment & Plan: This turned out to be more back pain and the back pain probably was from plerisy, it has resolved, it is not gall stones any ways ,we investigated appropriately for it. 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, she thinks it is from her RA, wants a wrist splint documented as of this encounter (statuses as of 01/04/2022) [facility]04-[facility]21 History of Past illness Narrative* Problem Noted Date Resolved Date Sacroiliitis 11/21/2020 03/06/2021 Tear of medial meniscus of right knee 09/24/2019 10/02/2019 GI bleed 01/28/2019 07/31/2019 Absolute anemia 09/05/2017 02/06/2018 Overview: Added automatically from request for surgery [id number] Morbid obesity with BMI of 40.0-44.9, adult 01/2607/31/2019 SOB (shortness of breath) 02/22/20162019 Last Assessment & Plan: Patient was a smoker in the past , has 31 pack years of smoking Last year her lung volumes showed some restriction. We were treating for asthma with the steroid inhaler but she might have to be on a LABA as she has been having worsening exercise tolerance. Her anemia in the past contributed to this too. Need to recheck her levels Morbid obesity 10/18/2015 02/12/2017 Overview: Gained 100 pounds on the steroids , was 150 before starting it now is almost 240. Last Assessment & Plan: Gained 100 pounds on the steroids , was 150 before starting it now is almost 240. 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 His appetite is back. She also had been to a long trip since she saw me the last time., this was a 3 week trip. And has tolerated it well. Abdominal pain 03/11/2014 04/22/2014 Last Assessment & Plan: This turned out to be more back pain and the back pain probably was from plerisy, it has resolved, it is not gall stones any ways ,we investigated appropriately for it. 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, she thinks it is from her RA, wants a wrist splint documented as of this encounter (statuses as of 01/10/2022) [facility] History of Past illness Narrative* Problem Noted Date Resolved Date Sacroiliitis 11/21/2020 03/06/2021 Tear of medial meniscus of right knee 09/24/2019 10/02/2019 GI bleed 01/28/2019 07/31/2019 Absolute anemia 09/05/2017 02/06/2018 Overview: Added automatically from request for surgery [id number] Morbid obesity with BMI of 40.0-44.9, adult 01/2607/31/2019 SOB (shortness of breath) 02/22/20162019 Last Assessment & Plan: Patient was a smoker in the past , has 31 pack years of smoking Last year her lung volumes showed some restriction. We were treating for asthma with the steroid inhaler but she might have to be on a LABA as she has been having worsening exercise tolerance. Her anemia in the past contributed to this too. Need to recheck her levels Morbid obesity 10/18/2015 02/12/2017 Overview: Gained 100 pounds on the steroids , was 150 before starting it now is almost 240. Last Assessment & Plan: Gained 100 pounds on the steroids , was 150 before starting it now is almost 240. 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 His appetite is back. She also had been to a long trip since she saw me the last time., this was a 3 week trip. And has tolerated it well. Abdominal pain 03/11/2014 04/22/2014 Last Assessment & Plan: This turned out to be more back pain and the back pain probably was from plerisy, it has resolved, it is not gall stones any ways ,we investigated appropriately for it. 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, she thinks it is from her RA, wants a wrist splint documented as of this encounter (statuses as of 01/19/2022) [facility]04[facility] History of Past illness Narrative* Problem Noted Date Resolved Date Sacroiliitis 11/21/2020 03/06/2021 Tear of medial meniscus of right knee 09/24/2019 10/02/2019 GI bleed 01/28/2019 07/31/2019 Absolute anemia 09/05/2017 02/06/2018 Overview: Added automatically from request for surgery [id number] Morbid obesity with BMI of 40.0-44.9, adult 01/2607/31/2019 SOB (shortness of breath) 02/22/20162019 Last Assessment & Plan: Patient was a smoker in the past , has 31 pack years of smoking Last year her lung volumes showed some restriction. We were treating for asthma with the steroid inhaler but she might have to be on a LABA as she has been having worsening exercise tolerance. Her anemia in the past contributed to this too. Need to recheck her levels Morbid obesity 10/18/2015 02/12/2017 Overview: Gained 100 pounds on the steroids , was 150 before starting it now is almost 240. Last Assessment & Plan: Gained 100 pounds on the steroids , was 150 before starting it now is almost 240. 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 His appetite is back. She also had been to a long trip since she saw me the last time., this was a 3 week trip. And has tolerated it well. Abdominal pain 03/11/2014 04/22/2014 Last Assessment & Plan: This turned out to be more back pain and the back pain probably was from plerisy, it has resolved, it is not gall stones any ways ,we investigated appropriately for it. 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, she thinks it is from her RA, wants a wrist splint documented as of this encounter (statuses as of 01/23/2022) [facility] History of Past illness Narrative* Problem Noted Date Resolved Date Sacroiliitis 11/21/2020 03/06/2021 Tear of medial meniscus of right knee 09/24/2019 10/02/2019 GI bleed 01/28/2019 07/31/2019 Absolute anemia 09/05/2017 02/06/2018 Overview: Added automatically from request for surgery [id number] Morbid obesity with BMI of 40.0-44.9, adult 01/2607/31/2019 SOB (shortness of breath) 02/22/20162019 Last Assessment & Plan: Patient was a smoker in the past , has 31 pack years of smoking Last year her lung volumes showed some restriction. We were treating for asthma with the steroid inhaler but she might have to be on a LABA as she has been having worsening exercise tolerance. Her anemia in the past contributed to this too. Need to recheck her levels Morbid obesity 10/18/2015 02/12/2017 Overview: Gained 100 pounds on the steroids , was 150 before starting it now is almost 240. Last Assessment & Plan: Gained 100 pounds on the steroids , was 150 before starting it now is almost 240. 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 His appetite is back. She also had been to a long trip since she saw me the last time., this was a 3 week trip. And has tolerated it well. Abdominal pain 03/11/2014 04/22/2014 Last Assessment & Plan: This turned out to be more back pain and the back pain probably was from plerisy, it has resolved, it is not gall stones any ways ,we investigated appropriately for it. 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, she thinks it is from her RA, wants a wrist splint documented as of this encounter (statuses as of 01/26/2022) [facility] History of Past illness Narrative* Problem Noted Date Resolved Date Sacroiliitis 11/21/2020 03/06/2021 Tear of medial meniscus of right knee 09/24/2019 10/02/2019 GI bleed 01/28/2019 07/31/2019 Absolute anemia 09/05/2017 02/06/2018 Overview: Added automatically from request for surgery [id number] Morbid obesity with BMI of 40.0-44.9, adult 01/2607/31/2019 SOB (shortness of breath) 02/22/20162019 Last Assessment & Plan: Patient was a smoker in the past , has 31 pack years of smoking Last year her lung volumes showed some restriction. We were treating for asthma with the steroid inhaler but she might have to be on a LABA as she has been having worsening exercise tolerance. Her anemia in the past contributed to this too. Need to recheck her levels Morbid obesity 10/18/2015 02/12/2017 Overview: Gained 100 pounds on the steroids , was 150 before starting it now is almost 240. Last Assessment & Plan: Gained 100 pounds on the steroids , was 150 before starting it now is almost 240. 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 His appetite is back. She also had been to a long trip since she saw me the last time., this was a 3 week trip. And has tolerated it well. Abdominal pain 03/11/2014 04/22/2014 Last Assessment & Plan: This turned out to be more back pain and the back pain probably was from plerisy, it has resolved, it is not gall stones any ways ,we investigated appropriately for it. 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, she thinks it is from her RA, wants a wrist splint documented as of this encounter (statuses as of 01/29/2022) [facility]04-26-2021 History of Past illness Narrative* Problem Noted Date Resolved Date Sacroiliitis 11/21/2020 03/06/2021 Tear of medial meniscus of right knee 09/24/2019 10/02/2019 GI bleed 01/28/2019 07/31/2019 Absolute anemia 09/05/2017 02/06/2018 Overview: Added automatically from request for surgery [id number] Morbid obesity with BMI of 40.0-44.9, adult 01/2607/31/2019 SOB (shortness of breath) 02/22/20162019 Last Assessment & Plan: Patient was a smoker in the past , has 31 pack years of smoking Last year her lung volumes showed some restriction. We were treating for asthma with the steroid inhaler but she might have to be on a LABA as she has been having worsening exercise tolerance. Her anemia in the past contributed to this too. Need to recheck her levels Morbid obesity 10/18/2015 02/12/2017 Overview: Gained 100 pounds on the steroids , was 150 before starting it now is almost 240. Last Assessment & Plan: Gained 100 pounds on the steroids , was 150 before starting it now is almost 240. 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 His appetite is back. She also had been to a long trip since she saw me the last time., this was a 3 week trip. And has tolerated it well. Abdominal pain 03/11/2014 04/22/2014 Last Assessment & Plan: This turned out to be more back pain and the back pain probably was from plerisy, it has resolved, it is not gall stones any ways ,we investigated appropriately for it. 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, she thinks it is from her RA, wants a wrist splint documented as of this encounter (statuses as of 01/30/2022) [facility]04-26-2021 History of Past illness Narrative* Problem Noted Date Resolved Date Sacroiliitis 11/21/2020 03/06/2021 Tear of medial meniscus of right knee 09/24/2019 10/02/2019 GI bleed 01/28/2019 07/31/2019 Absolute anemia 09/05/2017 02/06/2018 Overview: Added automatically from request for surgery [id number] Morbid obesity with BMI of 40.0-44.9, adult 01/2607/31/2019 SOB (shortness of breath) 02/22/20162019 Last Assessment & Plan: Patient was a smoker in the past , has 31 pack years of smoking Last year her lung volumes showed some restriction. We were treating for asthma with the steroid inhaler but she might have to be on a LABA as she has been having worsening exercise tolerance. Her anemia in the past contributed to this too. Need to recheck her levels Morbid obesity 10/18/2015 02/12/2017 Overview: Gained 100 pounds on the steroids , was 150 before starting it now is almost 240. Last Assessment & Plan: Gained 100 pounds on the steroids , was 150 before starting it now is almost 240. 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 His appetite is back. She also had been to a long trip since she saw me the last time., this was a 3 week trip. And has tolerated it well. Abdominal pain 03/11/2014 04/22/2014 Last Assessment & Plan: This turned out to be more back pain and the back pain probably was from plerisy, it has resolved, it is not gall stones any ways ,we investigated appropriately for it. 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, she thinks it is from her RA, wants a wrist splint documented as of this encounter (statuses as of 02/01/2022) [facility]04-26-2021 History of Past illness Narrative* Problem Noted Date Resolved Date Sacroiliitis 11/21/2020 03/06/2021 Tear of medial meniscus of right knee 09/24/2019 10/02/2019 GI bleed 01/28/2019 07/31/2019 Absolute anemia 09/05/2017 02/06/2018 Overview: Added automatically from request for surgery [id number] Morbid obesity with BMI of 40.0-44.9, adult 01/2607/31/2019 SOB (shortness of breath) 02/22/20162019 Last Assessment & Plan: Patient was a smoker in the past , has 31 pack years of smoking Last year her lung volumes showed some restriction. We were treating for asthma with the steroid inhaler but she might have to be on a LABA as she has been having worsening exercise tolerance. Her anemia in the past contributed to this too. Need to recheck her levels Morbid obesity 10/18/2015 02/12/2017 Overview: Gained 100 pounds on the steroids , was 150 before starting it now is almost 240. Last Assessment & Plan: Gained 100 pounds on the steroids , was 150 before starting it now is almost 240. 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 His appetite is back. She also had been to a long trip since she saw me the last time., this was a 3 week trip. And has tolerated it well. Abdominal pain 03/11/2014 04/22/2014 Last Assessment & Plan: This turned out to be more back pain and the back pain probably was from plerisy, it has resolved, it is not gall stones any ways ,we investigated appropriately for it. 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, she thinks it is from her RA, wants a wrist splint documented as of this encounter (statuses as of 02/01/2022) [facility]04-26-2021 History of Past illness Narrative* Problem Noted Date Resolved Date Sacroiliitis 11/21/2020 03/06/2021 Tear of medial meniscus of right knee 09/24/2019 10/02/2019 GI bleed 01/28/2019 07/31/2019 Absolute anemia 09/05/2017 02/06/2018 Overview: Added automatically from request for surgery [id number] Morbid obesity with BMI of 40.0-44.9, adult 01/2607/31/2019 SOB (shortness of breath) 02/22/20162019 Last Assessment & Plan: Patient was a smoker in the past , has 31 pack years of smoking Last year her lung volumes showed some restriction. We were treating for asthma with the steroid inhaler but she might have to be on a LABA as she has been having worsening exercise tolerance. Her anemia in the past contributed to this too. Need to recheck her levels Morbid obesity 10/18/2015 02/12/2017 Overview: Gained 100 pounds on the steroids , was 150 before starting it now is almost 240. Last Assessment & Plan: Gained 100 pounds on the steroids , was 150 before starting it now is almost 240. 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 His appetite is back. She also had been to a long trip since she saw me the last time., this was a 3 week trip. And has tolerated it well. Abdominal pain 03/11/2014 04/22/2014 Last Assessment & Plan: This turned out to be more back pain and the back pain probably was from plerisy, it has resolved, it is not gall stones any ways ,we investigated appropriately for it. 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, she thinks it is from her RA, wants a wrist splint documented as of this encounter (statuses as of 02/01/2022) [facility]04[facility] History of Past illness Narrative* Problem Noted Date Resolved Date Sacroiliitis 11/21/2020 03/06/2021 Tear of medial meniscus of right knee 09/24/2019 10/02/2019 GI bleed 01/28/2019 07/31/2019 Absolute anemia 09/05/2017 02/06/2018 Overview: Added automatically from request for surgery [id number] Morbid obesity with BMI of 40.0-44.9, adult 01/2607/31/2019 SOB (shortness of breath) 02/22/20162019 Last Assessment & Plan: Patient was a smoker in the past , has 31 pack years of smoking Last year her lung volumes showed some restriction. We were treating for asthma with the steroid inhaler but she might have to be on a LABA as she has been having worsening exercise tolerance. Her anemia in the past contributed to this too. Need to recheck her levels Morbid obesity 10/18/2015 02/12/2017 Overview: Gained 100 pounds on the steroids , was 150 before starting it now is almost 240. Last Assessment & Plan: Gained 100 pounds on the steroids , was 150 before starting it now is almost 240. 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 His appetite is back. She also had been to a long trip since she saw me the last time., this was a 3 week trip. And has tolerated it well. Abdominal pain 03/11/2014 04/22/2014 Last Assessment & Plan: This turned out to be more back pain and the back pain probably was from plerisy, it has resolved, it is not gall stones any ways ,we investigated appropriately for it. 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, she thinks it is from her RA, wants a wrist splint documented as of this encounter (statuses as of 03/05/2022) [facility]04-[facility]21 History of Past illness Narrative* Problem Noted Date Resolved Date Sacroiliitis 11/21/2020 03/06/2021 Tear of medial meniscus of right knee 09/24/2019 10/02/2019 GI bleed 01/28/2019 07/31/2019 Absolute anemia 09/05/2017 02/06/2018 Overview: Added automatically from request for surgery [id number] Morbid obesity with BMI of 40.0-44.9, adult 01/2607/31/2019 SOB (shortness of breath) 02/22/20162019 Last Assessment & Plan: Patient was a smoker in the past , has 31 pack years of smoking Last year her lung volumes showed some restriction. We were treating for asthma with the steroid inhaler but she might have to be on a LABA as she has been having worsening exercise tolerance. Her anemia in the past contributed to this too. Need to recheck her levels Morbid obesity 10/18/2015 02/12/2017 Overview: Gained 100 pounds on the steroids , was 150 before starting it now is almost 240. Last Assessment & Plan: Gained 100 pounds on the steroids , was 150 before starting it now is almost 240. 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 His appetite is back. She also had been to a long trip since she saw me the last time., this was a 3 week trip. And has tolerated it well. Abdominal pain 03/11/2014 04/22/2014 Last Assessment & Plan: This turned out to be more back pain and the back pain probably was from plerisy, it has resolved, it is not gall stones any ways ,we investigated appropriately for it. 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, she thinks it is from her RA, wants a wrist splint documented as of this encounter (statuses as of 03/12/2022) [facility]04[facility] History of Past illness Narrative* Problem Noted Date Resolved Date Sacroiliitis 11/21/2020 03/06/2021 Tear of medial meniscus of right knee 09/24/2019 10/02/2019 GI bleed 01/28/2019 07/31/2019 Absolute anemia 09/05/2017 02/06/2018 Overview: Added automatically from request for surgery [id number] Morbid obesity with BMI of 40.0-44.9, adult 01/2607/31/2019 SOB (shortness of breath) 02/22/20162019 Last Assessment & Plan: Patient was a smoker in the past , has 31 pack years of smoking Last year her lung volumes showed some restriction. We were treating for asthma with the steroid inhaler but she might have to be on a LABA as she has been having worsening exercise tolerance. Her anemia in the past contributed to this too. Need to recheck her levels Morbid obesity 10/18/2015 02/12/2017 Overview: Gained 100 pounds on the steroids , was 150 before starting it now is almost 240. Last Assessment & Plan: Gained 100 pounds on the steroids , was 150 before starting it now is almost 240. 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 His appetite is back. She also had been to a long trip since she saw me the last time., this was a 3 week trip. And has tolerated it well. Abdominal pain 03/11/2014 04/22/2014 Last Assessment & Plan: This turned out to be more back pain and the back pain probably was from plerisy, it has resolved, it is not gall stones any ways ,we investigated appropriately for it. 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, she thinks it is from her RA, wants a wrist splint documented as of this encounter (statuses as of 03/22/2022) [facility]04[facility] History of Past illness Narrative* Problem Noted Date Resolved Date Sacroiliitis 11/21/2020 03/06/2021 Tear of medial meniscus of right knee 09/24/2019 10/02/2019 GI bleed 01/28/2019 07/31/2019 Absolute anemia 09/05/2017 02/06/2018 Overview: Added automatically from request for surgery [id number] Morbid obesity with BMI of 40.0-44.9, adult 01/2607/31/2019 SOB (shortness of breath) 02/22/20162019 Last Assessment & Plan: Patient was a smoker in the past , has 31 pack years of smoking Last year her lung volumes showed some restriction. We were treating for asthma with the steroid inhaler but she might have to be on a LABA as she has been having worsening exercise tolerance. Her anemia in the past contributed to this too. Need to recheck her levels Morbid obesity 10/18/2015 02/12/2017 Overview: Gained 100 pounds on the steroids , was 150 before starting it now is almost 240. Last Assessment & Plan: Gained 100 pounds on the steroids , was 150 before starting it now is almost 240. 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 His appetite is back. She also had been to a long trip since she saw me the last time., this was a 3 week trip. And has tolerated it well. Abdominal pain 03/11/2014 04/22/2014 Last Assessment & Plan: This turned out to be more back pain and the back pain probably was from plerisy, it has resolved, it is not gall stones any ways ,we investigated appropriately for it. 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, she thinks it is from her RA, wants a wrist splint documented as of this encounter (statuses as of 03/27/2022) [facility] History of Past illness Narrative* Problem Noted Date Resolved Date Sacroiliitis 11/21/2020 03/06/2021 Tear of medial meniscus of right knee 09/24/2019 10/02/2019 GI bleed 01/28/2019 07/31/2019 Absolute anemia 09/05/2017 02/06/2018 Overview: Added automatically from request for surgery [id number] Morbid obesity with BMI of 40.0-44.9, adult 01/2607/31/2019 SOB (shortness of breath) 02/22/20162019 Last Assessment & Plan: Patient was a smoker in the past , has 31 pack years of smoking Last year her lung volumes showed some restriction. We were treating for asthma with the steroid inhaler but she might have to be on a LABA as she has been having worsening exercise tolerance. Her anemia in the past contributed to this too. Need to recheck her levels Morbid obesity 10/18/2015 02/12/2017 Overview: Gained 100 pounds on the steroids , was 150 before starting it now is almost 240. Last Assessment & Plan: Gained 100 pounds on the steroids , was 150 before starting it now is almost 240. 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 His appetite is back. She also had been to a long trip since she saw me the last time., this was a 3 week trip. And has tolerated it well. Abdominal pain 03/11/2014 04/22/2014 Last Assessment & Plan: This turned out to be more back pain and the back pain probably was from plerisy, it has resolved, it is not gall stones any ways ,we investigated appropriately for it. 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, she thinks it is from her RA, wants a wrist splint documented as of this encounter (statuses as of 04/05/2022) [facility] History of Past illness Narrative* Problem Noted Date Resolved Date Sacroiliitis 11/21/2020 03/06/2021 Tear of medial meniscus of right knee 09/24/2019 10/02/2019 GI bleed 01/28/2019 07/31/2019 Absolute anemia 09/05/2017 02/06/2018 Overview: Added automatically from request for surgery [id number] Morbid obesity with BMI of 40.0-44.9, adult 01/2607/31/2019 SOB (shortness of breath) 02/22/20162019 Last Assessment & Plan: Patient was a smoker in the past , has 31 pack years of smoking Last year her lung volumes showed some restriction. We were treating for asthma with the steroid inhaler but she might have to be on a LABA as she has been having worsening exercise tolerance. Her anemia in the past contributed to this too. Need to recheck her levels Morbid obesity 10/18/2015 02/12/2017 Overview: Gained 100 pounds on the steroids , was 150 before starting it now is almost 240. Last Assessment & Plan: Gained 100 pounds on the steroids , was 150 before starting it now is almost 240. 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 His appetite is back. She also had been to a long trip since she saw me the last time., this was a 3 week trip. And has tolerated it well. Abdominal pain 03/11/2014 04/22/2014 Last Assessment & Plan: This turned out to be more back pain and the back pain probably was from plerisy, it has resolved, it is not gall stones any ways ,we investigated appropriately for it. 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, she thinks it is from her RA, wants a wrist splint documented as of this encounter (statuses as of 04/19/2022) [facility] History of Past illness Narrative* Problem Noted Date Resolved Date Sacroiliitis 11/21/2020 03/06/2021 Tear of medial meniscus of right knee 09/24/2019 10/02/2019 GI bleed 01/28/2019 07/31/2019 Absolute anemia 09/05/2017 02/06/2018 Overview: Added automatically from request for surgery [id number] Morbid obesity with BMI of 40.0-44.9, adult 01/2607/31/2019 SOB (shortness of breath) 02/22/20162019 Last Assessment & Plan: Patient was a smoker in the past , has 31 pack years of smoking Last year her lung volumes showed some restriction. We were treating for asthma with the steroid inhaler but she might have to be on a LABA as she has been having worsening exercise tolerance. Her anemia in the past contributed to this too. Need to recheck her levels Morbid obesity 10/18/2015 02/12/2017 Overview: Gained 100 pounds on the steroids , was 150 before starting it now is almost 240. Last Assessment & Plan: Gained 100 pounds on the steroids , was 150 before starting it now is almost 240. 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 His appetite is back. She also had been to a long trip since she saw me the last time., this was a 3 week trip. And has tolerated it well. Abdominal pain 03/11/2014 04/22/2014 Last Assessment & Plan: This turned out to be more back pain and the back pain probably was from plerisy, it has resolved, it is not gall stones any ways ,we investigated appropriately for it. 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, she thinks it is from her RA, wants a wrist splint documented as of this encounter (statuses as of 05/01/2022) [facility]04-26-2021 History of Past illness Narrative* Problem Noted Date Resolved Date Sacroiliitis 11/21/2020 03/06/2021 Tear of medial meniscus of right knee 09/24/2019 10/02/2019 GI bleed 01/28/2019 07/31/2019 Absolute anemia 09/05/2017 02/06/2018 Overview: Added automatically from request for surgery [id number] Morbid obesity with BMI of 40.0-44.9, adult 01/2607/31/2019 SOB (shortness of breath) 02/22/20162019 Last Assessment & Plan: Patient was a smoker in the past , has 31 pack years of smoking Last year her lung volumes showed some restriction. We were treating for asthma with the steroid inhaler but she might have to be on a LABA as she has been having worsening exercise tolerance. Her anemia in the past contributed to this too. Need to recheck her levels Morbid obesity 10/18/2015 02/12/2017 Overview: Gained 100 pounds on the steroids , was 150 before starting it now is almost 240. Last Assessment & Plan: Gained 100 pounds on the steroids , was 150 before starting it now is almost 240. 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 His appetite is back. She also had been to a long trip since she saw me the last time., this was a 3 week trip. And has tolerated it well. Abdominal pain 03/11/2014 04/22/2014 Last Assessment & Plan: This turned out to be more back pain and the back pain probably was from plerisy, it has resolved, it is not gall stones any ways ,we investigated appropriately for it. 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, she thinks it is from her RA, wants a wrist splint documented as of this encounter (statuses as of 05/03/2022) [facility]04-26-2021 History of Past illness Narrative* Problem Noted Date Resolved Date Sacroiliitis 11/21/2020 03/06/2021 Tear of medial meniscus of right knee 09/24/2019 10/02/2019 GI bleed 01/28/2019 07/31/2019 Absolute anemia 09/05/2017 02/06/2018 Overview: Added automatically from request for surgery [id number] Morbid obesity with BMI of 40.0-44.9, adult 01/2607/31/2019 SOB (shortness of breath) 02/22/20162019 Last Assessment & Plan: Patient was a smoker in the past , has 31 pack years of smoking Last year her lung volumes showed some restriction. We were treating for asthma with the steroid inhaler but she might have to be on a LABA as she has been having worsening exercise tolerance. Her anemia in the past contributed to this too. Need to recheck her levels Morbid obesity 10/18/2015 02/12/2017 Overview: Gained 100 pounds on the steroids , was 150 before starting it now is almost 240. Last Assessment & Plan: Gained 100 pounds on the steroids , was 150 before starting it now is almost 240. 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 His appetite is back. She also had been to a long trip since she saw me the last time., this was a 3 week trip. And has tolerated it well. Abdominal pain 03/11/2014 04/22/2014 Last Assessment & Plan: This turned out to be more back pain and the back pain probably was from plerisy, it has resolved, it is not gall stones any ways ,we investigated appropriately for it. 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, she thinks it is from her RA, wants a wrist splint documented as of this encounter (statuses as of 05/16/2022) [facility]04-26-2021 History of Past illness Narrative* Problem Noted Date Resolved Date Sacroiliitis 11/21/2020 03/06/2021 Tear of medial meniscus of right knee 09/24/2019 10/02/2019 GI bleed 01/28/2019 07/31/2019 Absolute anemia 09/05/2017 02/06/2018 Overview: Added automatically from request for surgery [id number] Morbid obesity with BMI of 40.0-44.9, adult 01/2607/31/2019 SOB (shortness of breath) 02/22/20162019 Last Assessment & Plan: Patient was a smoker in the past , has 31 pack years of smoking Last year her lung volumes showed some restriction. We were treating for asthma with the steroid inhaler but she might have to be on a LABA as she has been having worsening exercise tolerance. Her anemia in the past contributed to this too. Need to recheck her levels Morbid obesity 10/18/2015 02/12/2017 Overview: Gained 100 pounds on the steroids , was 150 before starting it now is almost 240. Last Assessment & Plan: Gained 100 pounds on the steroids , was 150 before starting it now is almost 240. 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 His appetite is back. She also had been to a long trip since she saw me the last time., this was a 3 week trip. And has tolerated it well. Abdominal pain 03/11/2014 04/22/2014 Last Assessment & Plan: This turned out to be more back pain and the back pain probably was from plerisy, it has resolved, it is not gall stones any ways ,we investigated appropriately for it. 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, she thinks it is from her RA, wants a wrist splint documented as of this encounter (statuses as of 05/17/2022) [facility]04-26-2021 History of Past illness Narrative* Problem Noted Date Resolved Date Sacroiliitis 11/21/2020 03/06/2021 Tear of medial meniscus of right knee 09/24/2019 10/02/2019 GI bleed 01/28/2019 07/31/2019 Absolute anemia 09/05/2017 02/06/2018 Overview: Added automatically from request for surgery [id number] Morbid obesity with BMI of 40.0-44.9, adult 01/2607/31/2019 SOB (shortness of breath) 02/22/20162019 Last Assessment & Plan: Patient was a smoker in the past , has 31 pack years of smoking Last year her lung volumes showed some restriction. We were treating for asthma with the steroid inhaler but she might have to be on a LABA as she has been having worsening exercise tolerance. Her anemia in the past contributed to this too. Need to recheck her levels Morbid obesity 10/18/2015 02/12/2017 Overview: Gained 100 pounds on the steroids , was 150 before starting it now is almost 240. Last Assessment & Plan: Gained 100 pounds on the steroids , was 150 before starting it now is almost 240. 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 His appetite is back. She also had been to a long trip since she saw me the last time., this was a 3 week trip. And has tolerated it well. Abdominal pain 03/11/2014 04/22/2014 Last Assessment & Plan: This turned out to be more back pain and the back pain probably was from plerisy, it has resolved, it is not gall stones any ways ,we investigated appropriately for it. 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, she thinks it is from her RA, wants a wrist splint documented as of this encounter (statuses as of 05/17/2022) [facility]04-[facility]21 History of Past illness Narrative* Problem Noted Date Resolved Date Sacroiliitis 11/21/2020 03/06/2021 Tear of medial meniscus of right knee 09/24/2019 10/02/2019 GI bleed 01/28/2019 07/31/2019 Absolute anemia 09/05/2017 02/06/2018 Overview: Added automatically from request for surgery [id number] Morbid obesity with BMI of 40.0-44.9, adult 01/2607/31/2019 SOB (shortness of breath) 02/22/20162019 Last Assessment & Plan: Patient was a smoker in the past , has 31 pack years of smoking Last year her lung volumes showed some restriction. We were treating for asthma with the steroid inhaler but she might have to be on a LABA as she has been having worsening exercise tolerance. Her anemia in the past contributed to this too. Need to recheck her levels Morbid obesity 10/18/2015 02/12/2017 Overview: Gained 100 pounds on the steroids , was 150 before starting it now is almost 240. Last Assessment & Plan: Gained 100 pounds on the steroids , was 150 before starting it now is almost 240. 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 His appetite is back. She also had been to a long trip since she saw me the last time., this was a 3 week trip. And has tolerated it well. Abdominal pain 03/11/2014 04/22/2014 Last Assessment & Plan: This turned out to be more back pain and the back pain probably was from plerisy, it has resolved, it is not gall stones any ways ,we investigated appropriately for it. 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, she thinks it is from her RA, wants a wrist splint documented as of this encounter (statuses as of 05/29/2022) [facility]04-[facility]21 History of Past illness Narrative* Problem Noted Date Resolved Date Sacroiliitis 11/21/2020 03/06/2021 Tear of medial meniscus of right knee 09/24/2019 10/02/2019 GI bleed 01/28/2019 07/31/2019 Absolute anemia 09/05/2017 02/06/2018 Overview: Added automatically from request for surgery [id number] Morbid obesity with BMI of 40.0-44.9, adult 01/2607/31/2019 SOB (shortness of breath) 02/22/20162019 Last Assessment & Plan: Patient was a smoker in the past , has 31 pack years of smoking Last year her lung volumes showed some restriction. We were treating for asthma with the steroid inhaler but she might have to be on a LABA as she has been having worsening exercise tolerance. Her anemia in the past contributed to this too. Need to recheck her levels Morbid obesity 10/18/2015 02/12/2017 Overview: Gained 100 pounds on the steroids , was 150 before starting it now is almost 240. Last Assessment & Plan: Gained 100 pounds on the steroids , was 150 before starting it now is almost 240. 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 His appetite is back. She also had been to a long trip since she saw me the last time., this was a 3 week trip. And has tolerated it well. Abdominal pain 03/11/2014 04/22/2014 Last Assessment & Plan: This turned out to be more back pain and the back pain probably was from plerisy, it has resolved, it is not gall stones any ways ,we investigated appropriately for it. 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, she thinks it is from her RA, wants a wrist splint documented as of this encounter (statuses as of 05/30/2022) [facility]04[facility] History of Past illness Narrative* Problem Noted Date Resolved Date Sacroiliitis 11/21/2020 03/06/2021 Tear of medial meniscus of right knee 09/24/2019 10/02/2019 GI bleed 01/28/2019 07/31/2019 Absolute anemia 09/05/2017 02/06/2018 Overview: Added automatically from request for surgery [id number] Morbid obesity with BMI of 40.0-44.9, adult 01/2607/31/2019 SOB (shortness of breath) 02/22/20162019 Last Assessment & Plan: Patient was a smoker in the past , has 31 pack years of smoking Last year her lung volumes showed some restriction. We were treating for asthma with the steroid inhaler but she might have to be on a LABA as she has been having worsening exercise tolerance. Her anemia in the past contributed to this too. Need to recheck her levels Morbid obesity 10/18/2015 02/12/2017 Overview: Gained 100 pounds on the steroids , was 150 before starting it now is almost 240. Last Assessment & Plan: Gained 100 pounds on the steroids , was 150 before starting it now is almost 240. 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 His appetite is back. She also had been to a long trip since she saw me the last time., this was a 3 week trip. And has tolerated it well. Abdominal pain 03/11/2014 04/22/2014 Last Assessment & Plan: This turned out to be more back pain and the back pain probably was from plerisy, it has resolved, it is not gall stones any ways ,we investigated appropriately for it. 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, she thinks it is from her RA, wants a wrist splint documented as of this encounter (statuses as of 06/12/2022) [facility]04[facility] History of Past illness Narrative* Problem Noted Date Resolved Date Sacroiliitis 11/21/2020 03/06/2021 Tear of medial meniscus of right knee 09/24/2019 10/02/2019 GI bleed 01/28/2019 07/31/2019 Absolute anemia 09/05/2017 02/06/2018 Overview: Added automatically from request for surgery [id number] Morbid obesity with BMI of 40.0-44.9, adult 01/2607/31/2019 SOB (shortness of breath) 02/22/20162019 Last Assessment & Plan: Patient was a smoker in the past , has 31 pack years of smoking Last year her lung volumes showed some restriction. We were treating for asthma with the steroid inhaler but she might have to be on a LABA as she has been having worsening exercise tolerance. Her anemia in the past contributed to this too. Need to recheck her levels Morbid obesity 10/18/2015 02/12/2017 Overview: Gained 100 pounds on the steroids , was 150 before starting it now is almost 240. Last Assessment & Plan: Gained 100 pounds on the steroids , was 150 before starting it now is almost 240. 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 His appetite is back. She also had been to a long trip since she saw me the last time., this was a 3 week trip. And has tolerated it well. Abdominal pain 03/11/2014 04/22/2014 Last Assessment & Plan: This turned out to be more back pain and the back pain probably was from plerisy, it has resolved, it is not gall stones any ways ,we investigated appropriately for it. 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, she thinks it is from her RA, wants a wrist splint documented as of this encounter (statuses as of 06/12/2022) [facility] History of Past illness Narrative* Problem Noted Date Resolved Date Sacroiliitis 11/21/2020 03/06/2021 Tear of medial meniscus of right knee 09/24/2019 10/02/2019 GI bleed 01/28/2019 07/31/2019 Absolute anemia 09/05/2017 02/06/2018 Overview: Added automatically from request for surgery [id number] Morbid obesity with BMI of 40.0-44.9, adult 01/2607/31/2019 SOB (shortness of breath) 02/22/20162019 Last Assessment & Plan: Patient was a smoker in the past , has 31 pack years of smoking Last year her lung volumes showed some restriction. We were treating for asthma with the steroid inhaler but she might have to be on a LABA as she has been having worsening exercise tolerance. Her anemia in the past contributed to this too. Need to recheck her levels Morbid obesity 10/18/2015 02/12/2017 Overview: Gained 100 pounds on the steroids , was 150 before starting it now is almost 240. Last Assessment & Plan: Gained 100 pounds on the steroids , was 150 before starting it now is almost 240. 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 His appetite is back. She also had been to a long trip since she saw me the last time., this was a 3 week trip. And has tolerated it well. Abdominal pain 03/11/2014 04/22/2014 Last Assessment & Plan: This turned out to be more back pain and the back pain probably was from plerisy, it has resolved, it is not gall stones any ways ,we investigated appropriately for it. 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, she thinks it is from her RA, wants a wrist splint documented as of this encounter (statuses as of 06/15/2022) [facility] History of Past illness Narrative* Problem Noted Date Resolved Date Sacroiliitis 11/21/2020 03/06/2021 Tear of medial meniscus of right knee 09/24/2019 10/02/2019 GI bleed 01/28/2019 07/31/2019 Absolute anemia 09/05/2017 02/06/2018 Overview: Added automatically from request for surgery [id number] Morbid obesity with BMI of 40.0-44.9, adult 01/2607/31/2019 SOB (shortness of breath) 02/22/20162019 Last Assessment & Plan: Patient was a smoker in the past , has 31 pack years of smoking Last year her lung volumes showed some restriction. We were treating for asthma with the steroid inhaler but she might have to be on a LABA as she has been having worsening exercise tolerance. Her anemia in the past contributed to this too. Need to recheck her levels Morbid obesity 10/18/2015 02/12/2017 Overview: Gained 100 pounds on the steroids , was 150 before starting it now is almost 240. Last Assessment & Plan: Gained 100 pounds on the steroids , was 150 before starting it now is almost 240. 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 His appetite is back. She also had been to a long trip since she saw me the last time., this was a 3 week trip. And has tolerated it well. Abdominal pain 03/11/2014 04/22/2014 Last Assessment & Plan: This turned out to be more back pain and the back pain probably was from plerisy, it has resolved, it is not gall stones any ways ,we investigated appropriately for it. 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, she thinks it is from her RA, wants a wrist splint documented as of this encounter (statuses as of 06/26/2022) [facility]04-26-2021 History of Past illness Narrative* Problem Noted Date Resolved Date Sacroiliitis 11/21/2020 03/06/2021 Tear of medial meniscus of right knee 09/24/2019 10/02/2019 GI bleed 01/28/2019 07/31/2019 Absolute anemia 09/05/2017 02/06/2018 Overview: Added automatically from request for surgery [id number] Morbid obesity with BMI of 40.0-44.9, adult 01/2607/31/2019 SOB (shortness of breath) 02/22/20162019 Last Assessment & Plan: Patient was a smoker in the past , has 31 pack years of smoking Last year her lung volumes showed some restriction. We were treating for asthma with the steroid inhaler but she might have to be on a LABA as she has been having worsening exercise tolerance. Her anemia in the past contributed to this too. Need to recheck her levels Morbid obesity 10/18/2015 02/12/2017 Overview: Gained 100 pounds on the steroids , was 150 before starting it now is almost 240. Last Assessment & Plan: Gained 100 pounds on the steroids , was 150 before starting it now is almost 240. 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 His appetite is back. She also had been to a long trip since she saw me the last time., this was a 3 week trip. And has tolerated it well. Abdominal pain 03/11/2014 04/22/2014 Last Assessment & Plan: This turned out to be more back pain and the back pain probably was from plerisy, it has resolved, it is not gall stones any ways ,we investigated appropriately for it. 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, she thinks it is from her RA, wants a wrist splint documented as of this encounter (statuses as of 06/27/2022) [facility]04-26-2021 History of Past illness Narrative* Problem Noted Date Resolved Date Sacroiliitis 11/21/2020 03/06/2021 Tear of medial meniscus of right knee 09/24/2019 10/02/2019 GI bleed 01/28/2019 07/31/2019 Absolute anemia 09/05/2017 02/06/2018 Overview: Added automatically from request for surgery [id number] Morbid obesity with BMI of 40.0-44.9, adult 01/2607/31/2019 SOB (shortness of breath) 02/22/20162019 Last Assessment & Plan: Patient was a smoker in the past , has 31 pack years of smoking Last year her lung volumes showed some restriction. We were treating for asthma with the steroid inhaler but she might have to be on a LABA as she has been having worsening exercise tolerance. Her anemia in the past contributed to this too. Need to recheck her levels Morbid obesity 10/18/2015 02/12/2017 Overview: Gained 100 pounds on the steroids , was 150 before starting it now is almost 240. Last Assessment & Plan: Gained 100 pounds on the steroids , was 150 before starting it now is almost 240. 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 His appetite is back. She also had been to a long trip since she saw me the last time., this was a 3 week trip. And has tolerated it well. Abdominal pain 03/11/2014 04/22/2014 Last Assessment & Plan: This turned out to be more back pain and the back pain probably was from plerisy, it has resolved, it is not gall stones any ways ,we investigated appropriately for it. 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, she thinks it is from her RA, wants a wrist splint documented as of this encounter (statuses as of 07/13/2022) [facility]04-26-2021 History of Past illness Narrative* Problem Noted Date Resolved Date Sacroiliitis 11/21/2020 03/06/2021 Tear of medial meniscus of right knee 09/24/2019 10/02/2019 GI bleed 01/28/2019 07/31/2019 Absolute anemia 09/05/2017 02/06/2018 Overview: Added automatically from request for surgery [id number] Morbid obesity with BMI of 40.0-44.9, adult 01/2607/31/2019 SOB (shortness of breath) 02/22/20162019 Last Assessment & Plan: Patient was a smoker in the past , has 31 pack years of smoking Last year her lung volumes showed some restriction. We were treating for asthma with the steroid inhaler but she might have to be on a LABA as she has been having worsening exercise tolerance. Her anemia in the past contributed to this too. Need to recheck her levels Morbid obesity 10/18/2015 02/12/2017 Overview: Gained 100 pounds on the steroids , was 150 before starting it now is almost 240. Last Assessment & Plan: Gained 100 pounds on the steroids , was 150 before starting it now is almost 240. 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 His appetite is back. She also had been to a long trip since she saw me the last time., this was a 3 week trip. And has tolerated it well. Abdominal pain 03/11/2014 04/22/2014 Last Assessment & Plan: This turned out to be more back pain and the back pain probably was from plerisy, it has resolved, it is not gall stones any ways ,we investigated appropriately for it. 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, she thinks it is from her RA, wants a wrist splint documented as of this encounter (statuses as of 07/17/2022) [facility]04-26[facility]21 History of Past illness Narrative* Problem Noted Date Resolved Date Sacroiliitis 11/21/2020 03/06/2021 Tear of medial meniscus of right knee 09/24/2019 10/02/2019 GI bleed 01/28/2019 07/31/2019 Absolute anemia 09/05/2017 02/06/2018 Overview: Added automatically from request for surgery [id number] Morbid obesity with BMI of 40.0-44.9, adult 01/2607/31/2019 SOB (shortness of breath) 02/22/20162019 Last Assessment & Plan: Patient was a smoker in the past , has 31 pack years of smoking Last year her lung volumes showed some restriction. We were treating for asthma with the steroid inhaler but she might have to be on a LABA as she has been having worsening exercise tolerance. Her anemia in the past contributed to this too. Need to recheck her levels Morbid obesity 10/18/2015 02/12/2017 Overview: Gained 100 pounds on the steroids , was 150 before starting it now is almost 240. Last Assessment & Plan: Gained 100 pounds on the steroids , was 150 before starting it now is almost 240. 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 His appetite is back. She also had been to a long trip since she saw me the last time., this was a 3 week trip. And has tolerated it well. Abdominal pain 03/11/2014 04/22/2014 Last Assessment & Plan: This turned out to be more back pain and the back pain probably was from plerisy, it has resolved, it is not gall stones any ways ,we investigated appropriately for it. 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, she thinks it is from her RA, wants a wrist splint documented as of this encounter (statuses as of 08/03/2022) [facility] History of Past illness Narrative* Problem Noted Date Resolved Date Sacroiliitis 11/21/2020 03/06/2021 Tear of medial meniscus of right knee 09/24/2019 10/02/2019 GI bleed 01/28/2019 07/31/2019 Absolute anemia 09/05/2017 02/06/2018 Overview: Added automatically from request for surgery [id number] Morbid obesity with BMI of 40.0-44.9, adult 01/2607/31/2019 SOB (shortness of breath) 02/22/20162019 Last Assessment & Plan: Patient was a smoker in the past , has 31 pack years of smoking Last year her lung volumes showed some restriction. We were treating for asthma with the steroid inhaler but she might have to be on a LABA as she has been having worsening exercise tolerance. Her anemia in the past contributed to this too. Need to recheck her levels Morbid obesity 10/18/2015 02/12/2017 Overview: Gained 100 pounds on the steroids , was 150 before starting it now is almost 240. Last Assessment & Plan: Gained 100 pounds on the steroids , was 150 before starting it now is almost 240. 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 His appetite is back. She also had been to a long trip since she saw me the last time., this was a 3 week trip. And has tolerated it well. Abdominal pain 03/11/2014 04/22/2014 Last Assessment & Plan: This turned out to be more back pain and the back pain probably was from plerisy, it has resolved, it is not gall stones any ways ,we investigated appropriately for it. 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, she thinks it is from her RA, wants a wrist splint documented as of this encounter (statuses as of 08/08/2022) [facility] History of Past illness Narrative* Problem Noted Date Resolved Date Sacroiliitis 11/21/2020 03/06/2021 Tear of medial meniscus of right knee 09/24/2019 10/02/2019 GI bleed 01/28/2019 07/31/2019 Absolute anemia 09/05/2017 02/06/2018 Overview: Added automatically from request for surgery [id number] Morbid obesity with BMI of 40.0-44.9, adult 01/2607/31/2019 SOB (shortness of breath) 02/22/20162019 Last Assessment & Plan: Patient was a smoker in the past , has 31 pack years of smoking Last year her lung volumes showed some restriction. We were treating for asthma with the steroid inhaler but she might have to be on a LABA as she has been having worsening exercise tolerance. Her anemia in the past contributed to this too. Need to recheck her levels Morbid obesity 10/18/2015 02/12/2017 Overview: Gained 100 pounds on the steroids , was 150 before starting it now is almost 240. Last Assessment & Plan: Gained 100 pounds on the steroids , was 150 before starting it now is almost 240. 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 His appetite is back. She also had been to a long trip since she saw me the last time., this was a 3 week trip. And has tolerated it well. Abdominal pain 03/11/2014 04/22/2014 Last Assessment & Plan: This turned out to be more back pain and the back pain probably was from plerisy, it has resolved, it is not gall stones any ways ,we investigated appropriately for it. 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, she thinks it is from her RA, wants a wrist splint documented as of this encounter (statuses as of 08/09/2022) [facility] History of Past illness Narrative* Problem Noted Date Resolved Date Sacroiliitis 11/21/2020 03/06/2021 Tear of medial meniscus of right knee 09/24/2019 10/02/2019 GI bleed 01/28/2019 07/31/2019 Absolute anemia 09/05/2017 02/06/2018 Overview: Added automatically from request for surgery [id number] Morbid obesity with BMI of 40.0-44.9, adult 01/2607/31/2019 SOB (shortness of breath) 02/22/20162019 Last Assessment & Plan: Patient was a smoker in the past , has 31 pack years of smoking Last year her lung volumes showed some restriction. We were treating for asthma with the steroid inhaler but she might have to be on a LABA as she has been having worsening exercise tolerance. Her anemia in the past contributed to this too. Need to recheck her levels Morbid obesity 10/18/2015 02/12/2017 Overview: Gained 100 pounds on the steroids , was 150 before starting it now is almost 240. Last Assessment & Plan: Gained 100 pounds on the steroids , was 150 before starting it now is almost 240. Beginning a slow taper of the prednisone for the patient Nuclear sclerotic cataract of both eyes 07/27/20 15 02/23/2016 Floaters 07/27/2015 02/23/2016 Dermatochalasis of left upper eyelid 07/27/2015 07/31/2019 Carotid artery disease 04/22/2014 0 Overview: Left internal carotid is 60 to 79 percent blocked Last Assessment & Plan: Left internal carotid is 60 to 79 percent blocked Wrote to Beata Nloan about this. 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 His appetite is back. She also had been to a long trip since she saw me the last time., this was a 3 week trip. And has tolerated it well. Abdominal pain 03/11/2014 04/22/2014 Last Assessment & Plan: This turned out to be more back pain and the back pain probably was from plerisy, it has resolved, it is not gall stones any ways ,we investigated appropriately for it. 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, she thinks it is from her RA, wants a wrist splint documented as of this encounter (statuses as of 08/14/2022) [facility]04[facility] History of Past illness Narrative* Problem Noted Date Resolved Date Sacroiliitis 11/21/2020 03/06/2021 Tear of medial meniscus of right knee 09/24/2019 10/02/2019 GI bleed 01/28/2019 07/31/2019 Absolute anemia 09/05/2017 02/06/2018 Overview: Added automatically from request for surgery [id number] Morbid obesity with BMI of 40.0-44.9, adult 01/2607/31/2019 SOB (shortness of breath) 02/22/20162019 Last Assessment & Plan: Patient was a smoker in the past , has 31 pack years of smoking Last year her lung volumes showed some restriction. We were treating for asthma with the steroid inhaler but she might have to be on a LABA as she has been having worsening exercise tolerance. Her anemia in the past contributed to this too. Need to recheck her levels Morbid obesity 10/18/2015 02/12/2017 Overview: Gained 100 pounds on the steroids , was 150 before starting it now is almost 240. Last Assessment & Plan: Gained 100 pounds on the steroids , was 150 before starting it now is almost 240. 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 His appetite is back. She also had been to a long trip since she saw me the last time., this was a 3 week trip. And has tolerated it well. Abdominal pain 03/11/2014 04/22/2014 Last Assessment & Plan: This turned out to be more back pain and the back pain probably was from plerisy, it has resolved, it is not gall stones any ways ,we investigated appropriately for it. 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, she thinks it is from her RA, wants a wrist splint documented as of this encounter (statuses as of 08/16/2022) [facility] History of Past illness Narrative* Problem Noted Date Resolved Date Sacroiliitis 11/21/2020 03/06/2021 Tear of medial meniscus of right knee 09/24/2019 10/02/2019 GI bleed 01/28/2019 07/31/2019 Absolute anemia 09/05/2017 02/06/2018 Overview: Added automatically from request for surgery [id number] Morbid obesity with BMI of 40.0-44.9, adult 01/2607/31/2019 SOB (shortness of breath) 02/22/20162019 Last Assessment & Plan: Patient was a smoker in the past , has 31 pack years of smoking Last year her lung volumes showed some restriction. We were treating for asthma with the steroid inhaler but she might have to be on a LABA as she has been having worsening exercise tolerance. Her anemia in the past contributed to this too. Need to recheck her levels Morbid obesity 10/18/2015 02/12/2017 Overview: Gained 100 pounds on the steroids , was 150 before starting it now is almost 240. Last Assessment & Plan: Gained 100 pounds on the steroids , was 150 before starting it now is almost 240. 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 His appetite is back. She also had been to a long trip since she saw me the last time., this was a 3 week trip. And has tolerated it well. Abdominal pain 03/11/2014 04/22/2014 Last Assessment & Plan: This turned out to be more back pain and the back pain probably was from plerisy, it has resolved, it is not gall stones any ways ,we investigated appropriately for it. 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, she thinks it is from her RA, wants a wrist splint documented as of this encounter (statuses as of 09/03/2022) [facility] History of Past illness Narrative* Problem Noted Date Resolved Date Sacroiliitis 11/21/2020 03/06/2021 Tear of medial meniscus of right knee 09/24/2019 10/02/2019 GI bleed 01/28/2019 07/31/2019 Absolute anemia 09/05/2017 02/06/2018 Overview: Added automatically from request for surgery [id number] Morbid obesity with BMI of 40.0-44.9, adult 01/2607/31/2019 SOB (shortness of breath) 02/22/20162019 Last Assessment & Plan: Patient was a smoker in the past , has 31 pack years of smoking Last year her lung volumes showed some restriction. We were treating for asthma with the steroid inhaler but she might have to be on a LABA as she has been having worsening exercise tolerance. Her anemia in the past contributed to this too. Need to recheck her levels Morbid obesity 10/18/2015 02/12/2017 Overview: Gained 100 pounds on the steroids , was 150 before starting it now is almost 240. Last Assessment & Plan: Gained 100 pounds on the steroids , was 150 before starting it now is almost 240. 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 His appetite is back. She also had been to a long trip since she saw me the last time., this was a 3 week trip. And has tolerated it well. Abdominal pain 03/11/2014 04/22/2014 Last Assessment & Plan: This turned out to be more back pain and the back pain probably was from plerisy, it has resolved, it is not gall stones any ways ,we investigated appropriately for it. 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, she thinks it is from her RA, wants a wrist splint documented as of this encounter (statuses as of 09/07/2022) [facility]04-26-2021 History of Past illness Narrative* Problem Noted Date Resolved Date Sacroiliitis 11/21/2020 03/06/2021 Tear of medial meniscus of right knee 09/24/2019 10/02/2019 GI bleed 01/28/2019 07/31/2019 Absolute anemia 09/05/2017 02/06/2018 Overview: Added automatically from request for surgery [id number] Morbid obesity with BMI of 40.0-44.9, adult 01/2607/31/2019 SOB (shortness of breath) 02/22/20162019 Last Assessment & Plan: Patient was a smoker in the past , has 31 pack years of smoking Last year her lung volumes showed some restriction. We were treating for asthma with the steroid inhaler but she might have to be on a LABA as she has been having worsening exercise tolerance. Her anemia in the past contributed to this too. Need to recheck her levels Morbid obesity 10/18/2015 02/12/2017 Overview: Gained 100 pounds on the steroids , was 150 before starting it now is almost 240. Last Assessment & Plan: Gained 100 pounds on the steroids , was 150 before starting it now is almost 240. 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 His appetite is back. She also had been to a long trip since she saw me the last time., this was a 3 week trip. And has tolerated it well. Abdominal pain 03/11/2014 04/22/2014 Last Assessment & Plan: This turned out to be more back pain and the back pain probably was from plerisy, it has resolved, it is not gall stones any ways ,we investigated appropriately for it. 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, she thinks it is from her RA, wants a wrist splint documented as of this encounter (statuses as of 09/21/2022) [facility]04-26-2021 History of Past illness Narrative* Problem Noted Date Resolved Date Sacroiliitis 11/21/2020 03/06/2021 Tear of medial meniscus of right knee 09/24/2019 10/02/2019 GI bleed 01/28/2019 07/31/2019 Absolute anemia 09/05/2017 02/06/2018 Overview: Added automatically from request for surgery [id number] Morbid obesity with BMI of 40.0-44.9, adult 01/2607/31/2019 SOB (shortness of breath) 02/22/20162019 Last Assessment & Plan: Patient was a smoker in the past , has 31 pack years of smoking Last year her lung volumes showed some restriction. We were treating for asthma with the steroid inhaler but she might have to be on a LABA as she has been having worsening exercise tolerance. Her anemia in the past contributed to this too. Need to recheck her levels Morbid obesity 10/18/2015 02/12/2017 Overview: Gained 100 pounds on the steroids , was 150 before starting it now is almost 240. Last Assessment & Plan: Gained 100 pounds on the steroids , was 150 before starting it now is almost 240. 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 His appetite is back. She also had been to a long trip since she saw me the last time., this was a 3 week trip. And has tolerated it well. Abdominal pain 03/11/2014 04/22/2014 Last Assessment & Plan: This turned out to be more back pain and the back pain probably was from plerisy, it has resolved, it is not gall stones any ways ,we investigated appropriately for it. 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, she thinks it is from her RA, wants a wrist splint documented as of this encounter (statuses as of 10/18/2022) [facility]04-26-2021 History of Past illness Narrative* Problem Noted Date Resolved Date Sacroiliitis 11/21/2020 03/06/2021 Tear of medial meniscus of right knee 09/24/2019 10/02/2019 GI bleed 01/28/2019 07/31/2019 Absolute anemia 09/05/2017 02/06/2018 Overview: Added automatically from request for surgery [id number] Morbid obesity with BMI of 40.0-44.9, adult 01/2607/31/2019 SOB (shortness of breath) 02/22/20162019 Last Assessment & Plan: Patient was a smoker in the past , has 31 pack years of smoking Last year her lung volumes showed some restriction. We were treating for asthma with the steroid inhaler but she might have to be on a LABA as she has been having worsening exercise tolerance. Her anemia in the past contributed to this too. Need to recheck her levels Morbid obesity 10/18/2015 02/12/2017 Overview: Gained 100 pounds on the steroids , was 150 before starting it now is almost 240. Last Assessment & Plan: Gained 100 pounds on the steroids , was 150 before starting it now is almost 240. 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 His appetite is back. She also had been to a long trip since she saw me the last time., this was a 3 week trip. And has tolerated it well. Abdominal pain 03/11/2014 04/22/2014 Last Assessment & Plan: This turned out to be more back pain and the back pain probably was from plerisy, it has resolved, it is not gall stones any ways ,we investigated appropriately for it. 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, she thinks it is from her RA, wants a wrist splint documented as of this encounter (statuses as of 10/25/2022) [facility]04-26-2021 History of Past illness Narrative* Problem Noted Date Resolved Date Sacroiliitis 11/21/2020 03/06/2021 Tear of medial meniscus of right knee 09/24/2019 10/02/2019 GI bleed 01/28/2019 07/31/2019 Absolute anemia 09/05/2017 02/06/2018 Overview: Added automatically from request for surgery [id number] Morbid obesity with BMI of 40.0-44.9, adult 01/2607/31/2019 SOB (shortness of breath) 02/22/20162019 Last Assessment & Plan: Patient was a smoker in the past , has 31 pack years of smoking Last year her lung volumes showed some restriction. We were treating for asthma with the steroid inhaler but she might have to be on a LABA as she has been having worsening exercise tolerance. Her anemia in the past contributed to this too. Need to recheck her levels Morbid obesity 10/18/2015 02/12/2017 Overview: Gained 100 pounds on the steroids , was 150 before starting it now is almost 240. Last Assessment & Plan: Gained 100 pounds on the steroids , was 150 before starting it now is almost 240. Beginning a slow taper of the prednisone for the patient Nuclear sclerotic cataract of both eyes 07/27/20 15 02/23/2016 Floaters 07/27/2015 02/23/2016 Dermatochalasis of left upper eyelid 07/27/2015 07/31/2019 Carotid artery disease 04/22/2014 0 Overview: Left internal carotid is 60 to 79 percent blocked Last Assessment & Plan: Left internal carotid is 60 to 79 percent blocked Wrote to Beata Nloan about this. 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 His appetite is back. She also had been to a long trip since she saw me the last time., this was a 3 week trip. And has tolerated it well. Abdominal pain 03/11/2014 04/22/2014 Last Assessment & Plan: This turned out to be more back pain and the back pain probably was from plerisy, it has resolved, it is not gall stones any ways ,we investigated appropriately for it. 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, she thinks it is from her RA, wants a wrist splint documented as of this encounter (statuses as of 11/01/2022) [facility]04-26-[facility]21 History of Past illness Narrative* Problem Noted Date Resolved Date Sacroiliitis 11/21/2020 03/06/2021 Tear of medial meniscus of right knee 09/24/2019 10/02/2019 GI bleed 01/28/2019 07/31/2019 Absolute anemia 09/05/2017 02/06/2018 Overview: Added automatically from request for surgery [id number] Morbid obesity with BMI of 40.0-44.9, adult 01/2607/31/2019 SOB (shortness of breath) 02/22/20162019 Last Assessment & Plan: Patient was a smoker in the past , has 31 pack years of smoking Last year her lung volumes showed some restriction. We were treating for asthma with the steroid inhaler but she might have to be on a LABA as she has been having worsening exercise tolerance. Her anemia in the past contributed to this too. Need to recheck her levels Morbid obesity 10/18/2015 02/12/2017 Overview: Gained 100 pounds on the steroids , was 150 before starting it now is almost 240. Last Assessment & Plan: Gained 100 pounds on the steroids , was 150 before starting it now is almost 240. 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 His appetite is back. She also had been to a long trip since she saw me the last time., this was a 3 week trip. And has tolerated it well. Abdominal pain 03/11/2014 04/22/2014 Last Assessment & Plan: This turned out to be more back pain and the back pain probably was from plerisy, it has resolved, it is not gall stones any ways ,we investigated appropriately for it. 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, she thinks it is from her RA, wants a wrist splint documented as of this encounter (statuses as of 11/02/2022) [facility]04-26-2021 History of Past illness Narrative* Problem Noted Date Resolved Date Sacroiliitis 11/21/2020 03/06/2021 Tear of medial meniscus of right knee 09/24/2019 10/02/2019 GI bleed 01/28/2019 07/31/2019 Absolute anemia 09/05/2017 02/06/2018 Overview: Added automatically from request for surgery [id number] Morbid obesity with BMI of 40.0-44.9, adult 01/2607/31/2019 SOB (shortness of breath) 02/22/20162019 Last Assessment & Plan: Patient was a smoker in the past , has 31 pack years of smoking Last year her lung volumes showed some restriction. We were treating for asthma with the steroid inhaler but she might have to be on a LABA as she has been having worsening exercise tolerance. Her anemia in the past contributed to this too. Need to recheck her levels Morbid obesity 10/18/2015 02/12/2017 Overview: Gained 100 pounds on the steroids , was 150 before starting it now is almost 240. Last Assessment & Plan: Gained 100 pounds on the steroids , was 150 before starting it now is almost 240. 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 His appetite is back. She also had been to a long trip since she saw me the last time., this was a 3 week trip. And has tolerated it well. Abdominal pain 03/11/2014 04/22/2014 Last Assessment & Plan: This turned out to be more back pain and the back pain probably was from plerisy, it has resolved, it is not gall stones any ways ,we investigated appropriately for it. 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, she thinks it is from her RA, wants a wrist splint documented as of this encounter (statuses as of 11/20/2022) [facility]04[facility]21 History of Past illness Narrative* Problem Noted Date Resolved Date Sacroiliitis 11/21/2020 03/06/2021 Tear of medial meniscus of right knee 09/24/2019 10/02/2019 GI bleed 01/28/2019 07/31/2019 Absolute anemia 09/05/2017 02/06/2018 Overview: Added automatically from request for surgery [id number] Morbid obesity with BMI of 40.0-44.9, adult 01/2607/31/2019 SOB (shortness of breath) 02/22/20162019 Last Assessment & Plan: Patient was a smoker in the past , has 31 pack years of smoking Last year her lung volumes showed some restriction. We were treating for asthma with the steroid inhaler but she might have to be on a LABA as she has been having worsening exercise tolerance. Her anemia in the past contributed to this too. Need to recheck her levels Morbid obesity 10/18/2015 02/12/2017 Overview: Gained 100 pounds on the steroids , was 150 before starting it now is almost 240. Last Assessment & Plan: Gained 100 pounds on the steroids , was 150 before starting it now is almost 240. 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 His appetite is back. She also had been to a long trip since she saw me the last time., this was a 3 week trip. And has tolerated it well. Abdominal pain 03/11/2014 04/22/2014 Last Assessment & Plan: This turned out to be more back pain and the back pain probably was from plerisy, it has resolved, it is not gall stones any ways ,we investigated appropriately for it. 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, she thinks it is from her RA, wants a wrist splint documented as of this encounter (statuses as of 11/26/2022) [facility]04[facility] History of Past illness Narrative* Problem Noted Date Resolved Date Sacroiliitis 11/21/2020 03/06/2021 Tear of medial meniscus of right knee 09/24/2019 10/02/2019 GI bleed 01/28/2019 07/31/2019 Absolute anemia 09/05/2017 02/06/2018 Overview: Added automatically from request for surgery [id number] Morbid obesity with BMI of 40.0-44.9, adult 01/2607/31/2019 SOB (shortness of breath) 02/22/20162019 Last Assessment & Plan: Patient was a smoker in the past , has 31 pack years of smoking Last year her lung volumes showed some restriction. We were treating for asthma with the steroid inhaler but she might have to be on a LABA as she has been having worsening exercise tolerance. Her anemia in the past contributed to this too. Need to recheck her levels Morbid obesity 10/18/2015 02/12/2017 Overview: Gained 100 pounds on the steroids , was 150 before starting it now is almost 240. Last Assessment & Plan: Gained 100 pounds on the steroids , was 150 before starting it now is almost 240. 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 His appetite is back. She also had been to a long trip since she saw me the last time., this was a 3 week trip. And has tolerated it well. Abdominal pain 03/11/2014 04/22/2014 Last Assessment & Plan: This turned out to be more back pain and the back pain probably was from plerisy, it has resolved, it is not gall stones any ways ,we investigated appropriately for it. 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, she thinks it is from her RA, wants a wrist splint documented as of this encounter (statuses as of 12/26/2022) [facility] History of Past illness Narrative* Problem Noted Date Resolved Date Sacroiliitis 11/21/2020 03/06/2021 Tear of medial meniscus of right knee 09/24/2019 10/02/2019 GI bleed 01/28/2019 07/31/2019 Absolute anemia 09/05/2017 02/06/2018 Overview: Added automatically from request for surgery [id number] Morbid obesity with BMI of 40.0-44.9, adult 01/2607/31/2019 SOB (shortness of breath) 02/22/20162019 Last Assessment & Plan: Patient was a smoker in the past , has 31 pack years of smoking Last year her lung volumes showed some restriction. We were treating for asthma with the steroid inhaler but she might have to be on a LABA as she has been having worsening exercise tolerance. Her anemia in the past contributed to this too. Need to recheck her levels Morbid obesity 10/18/2015 02/12/2017 Overview: Gained 100 pounds on the steroids , was 150 before starting it now is almost 240. Last Assessment & Plan: Gained 100 pounds on the steroids , was 150 before starting it now is almost 240. 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 His appetite is back. She also had been to a long trip since she saw me the last time., this was a 3 week trip. And has tolerated it well. Abdominal pain 03/11/2014 04/22/2014 Last Assessment & Plan: This turned out to be more back pain and the back pain probably was from plerisy, it has resolved, it is not gall stones any ways ,we investigated appropriately for it. 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, she thinks it is from her RA, wants a wrist splint documented as of this encounter (statuses as of 12/26/2022) [facility] History of Past illness Narrative* Problem Noted Date Resolved Date Sacroiliitis 11/21/2020 03/06/2021 Tear of medial meniscus of right knee 09/24/2019 10/02/2019 GI bleed 01/28/2019 07/31/2019 Absolute anemia 09/05/2017 02/06/2018 Overview: Added automatically from request for surgery [id number] Morbid obesity with BMI of 40.0-44.9, adult 01/2607/31/2019 SOB (shortness of breath) 02/22/20162019 Last Assessment & Plan: Patient was a smoker in the past , has 31 pack years of smoking Last year her lung volumes showed some restriction. We were treating for asthma with the steroid inhaler but she might have to be on a LABA as she has been having worsening exercise tolerance. Her anemia in the past contributed to this too. Need to recheck her levels Morbid obesity 10/18/2015 02/12/2017 Overview: Gained 100 pounds on the steroids , was 150 before starting it now is almost 240. Last Assessment & Plan: Gained 100 pounds on the steroids , was 150 before starting it now is almost 240. 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 His appetite is back. She also had been to a long trip since she saw me the last time., this was a 3 week trip. And has tolerated it well. Abdominal pain 03/11/2014 04/22/2014 Last Assessment & Plan: This turned out to be more back pain and the back pain probably was from plerisy, it has resolved, it is not gall stones any ways ,we investigated appropriately for it. 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, she thinks it is from her RA, wants a wrist splint documented as of this encounter (statuses as of 01/02/2023) [facility] History of Past illness Narrative* Problem Noted Date Resolved Date Sacroiliitis 11/21/2020 03/06/2021 Tear of medial meniscus of right knee 09/24/2019 10/02/2019 GI bleed 01/28/2019 07/31/2019 Absolute anemia 09/05/2017 02/06/2018 Overview: Added automatically from request for surgery [id number] Morbid obesity with BMI of 40.0-44.9, adult 01/2607/31/2019 SOB (shortness of breath) 02/22/20162019 Last Assessment & Plan: Patient was a smoker in the past , has 31 pack years of smoking Last year her lung volumes showed some restriction. We were treating for asthma with the steroid inhaler but she might have to be on a LABA as she has been having worsening exercise tolerance. Her anemia in the past contributed to this too. Need to recheck her levels Morbid obesity 10/18/2015 02/12/2017 Overview: Gained 100 pounds on the steroids , was 150 before starting it now is almost 240. Last Assessment & Plan: Gained 100 pounds on the steroids , was 150 before starting it now is almost 240. 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 His appetite is back. She also had been to a long trip since she saw me the last time., this was a 3 week trip. And has tolerated it well. Abdominal pain 03/11/2014 04/22/2014 Last Assessment & Plan: This turned out to be more back pain and the back pain probably was from plerisy, it has resolved, it is not gall stones any ways ,we investigated appropriately for it. 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, she thinks it is from her RA, wants a wrist splint documented as of this encounter (statuses as of 02/01/2023) [facility]04-26-2021 History of Past illness Narrative* Problem Noted Date Diagnosed Date Resolved Date Sacroiliitis 11/21/2020 03/06/2021 Tear of medial meniscus of right knee 09/24/2019 10/02/2019 GI bleed 01/28/2019 07/31/2019 Absolute anemia 09/05/2017 02/06/2018 Overview: Added automatically from request for surgery [id number] Morbid obesity with BMI of 40.0-44.9, adult 02/12/2017 07/31/2019 SOB (shortness of breath) 02/22/2016 Last Assessment & Plan: Patient was a smoker in the past , has 31 pack years of smoking Last year her lung volumes showed some restriction. We were treating for asthma with the steroid inhaler but she might have to be on a LABA as she has been having worsening exercise tolerance. Her anemia in the past contributed to this too. Need to recheck her levels Morbid obesity 10/18/2015 02/12/2017 Overview: Gained 100 pounds on the steroids , was 150 before starting it now is almost 240. Last Assessment & Plan: Gained 100 pounds on the steroids , was 150 before starting it now is almost 240. 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 His appetite is back. She also had been to a long trip since she saw me the last time., this was a 3 week trip. And has tolerated it well. Abdominal pain 03/11/2014 04/22/2014 Last Assessment & Plan: This turned out to be more back pain and the back pain probably was from plerisy, it has resolved, it is not gall stones any ways ,we investigated appropriately for it. 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, she thinks it is from her RA, wants a wrist splint documented as of this encounter (statuses as of 04/11/2023) [facility]04-26-2021 History of Past illness Narrative* Problem Noted Date Diagnosed Date Resolved Date Sacroiliitis 11/21/2020 03/06/2021 Tear of medial meniscus of right knee 09/24/2019 10/02/2019 GI bleed 01/28/2019 07/31/2019 Absolute anemia 09/05/2017 02/06/2018 Overview: Added automatically from request for surgery [id number] Morbid obesity with BMI of 40.0-44.9, adult 02/12/2017 07/31/2019 SOB (shortness of breath) 02/22/2016 Last Assessment & Plan: Patient was a smoker in the past , has 31 pack years of smoking Last year her lung volumes showed some restriction. We were treating for asthma with the steroid inhaler but she might have to be on a LABA as she has been having worsening exercise tolerance. Her anemia in the past contributed to this too. Need to recheck her levels Morbid obesity 10/18/2015 02/12/2017 Overview: Gained 100 pounds on the steroids , was 150 before starting it now is almost 240. Last Assessment & Plan: Gained 100 pounds on the steroids , was 150 before starting it now is almost 240. 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 His appetite is back. She also had been to a long trip since she saw me the last time., this was a 3 week trip. And has tolerated it well. Abdominal pain 03/11/2014 04/22/2014 Last Assessment & Plan: This turned out to be more back pain and the back pain probably was from plerisy, it has resolved, it is not gall stones any ways ,we investigated appropriately for it. 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, she thinks it is from her RA, wants a wrist splint documented as of this encounter (statuses as of 04/15/2023) [facility]04-26-2021 History of Past illness Narrative* Problem Noted Date Diagnosed Date Resolved Date Sacroiliitis 11/21/2020 03/06/2021 Tear of medial meniscus of right knee 09/24/2019 10/02/2019 GI bleed 01/28/2019 07/31/2019 Absolute anemia 09/05/2017 02/06/2018 Overview: Added automatically from request for surgery [id number] Morbid obesity with BMI of 40.0-44.9, adult 02/12/2017 07/31/2019 SOB (shortness of breath) 02/22/2016 Last Assessment & Plan: Patient was a smoker in the past , has 31 pack years of smoking Last year her lung volumes showed some restriction. We were treating for asthma with the steroid inhaler but she might have to be on a LABA as she has been having worsening exercise tolerance. Her anemia in the past contributed to this too. Need to recheck her levels Morbid obesity 10/18/2015 02/12/2017 Overview: Gained 100 pounds on the steroids , was 150 before starting it now is almost 240. Last Assessment & Plan: Gained 100 pounds on the steroids , was 150 before starting it now is almost 240. 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 His appetite is back. She also had been to a long trip since she saw me the last time., this was a 3 week trip. And has tolerated it well. Abdominal pain 03/11/2014 04/22/2014 Last Assessment & Plan: This turned out to be more back pain and the back pain probably was from plerisy, it has resolved, it is not gall stones any ways ,we investigated appropriately for it. 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, she thinks it is from her RA, wants a wrist splint documented as of this encounter (statuses as of 04/26/2023) [facility]04-[facility]2021 History of Past illness Narrative* Problem Noted Date Diagnosed Date Resolved Date Sacroiliitis 11/21/2020 03/06/2021 Tear of medial meniscus of right knee 09/24/2019 10/02/2019 GI bleed 01/28/2019 07/31/2019 Absolute anemia 09/05/2017 02/06/2018 Overview: Added automatically from request for surgery [id number] Morbid obesity with BMI of 40.0-44.9, adult 02/12/2017 07/31/2019 SOB (shortness of breath) 02/22/2016 Last Assessment & Plan: Patient was a smoker in the past , has 31 pack years of smoking Last year her lung volumes showed some restriction. We were treating for asthma with the steroid inhaler but she might have to be on a LABA as she has been having worsening exercise tolerance. Her anemia in the past contributed to this too. Need to recheck her levels Morbid obesity 10/18/2015 02/12/2017 Overview: Gained 100 pounds on the steroids , was 150 before starting it now is almost 240. Last Assessment & Plan: Gained 100 pounds on the steroids , was 150 before starting it now is almost 240. 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 His appetite is back. She also had been to a long trip since she saw me the last time., this was a 3 week trip. And has tolerated it well. Abdominal pain 03/11/2014 04/22/2014 Last Assessment & Plan: This turned out to be more back pain and the back pain probably was from plerisy, it has resolved, it is not gall stones any ways ,we investigated appropriately for it. 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, she thinks it is from her RA, wants a wrist splint documented as of this encounter (statuses as of 04/26/2023) [facility]04[facility] History of Past illness Narrative* Problem Noted Date Diagnosed Date Resolved Date Sacroiliitis 11/21/2020 03/06/2021 Tear of medial meniscus of right knee 09/24/2019 10/02/2019 GI bleed 01/28/2019 07/31/2019 Absolute anemia 09/05/2017 02/06/2018 Overview: Added automatically from request for surgery [id number] Morbid obesity with BMI of 40.0-44.9, adult 02/12/2017 07/31/2019 SOB (shortness of breath) 02/22/2016 Last Assessment & Plan: Patient was a smoker in the past , has 31 pack years of smoking Last year her lung volumes showed some restriction. We were treating for asthma with the steroid inhaler but she might have to be on a LABA as she has been having worsening exercise tolerance. Her anemia in the past contributed to this too. Need to recheck her levels Morbid obesity 10/18/2015 02/12/2017 Overview: Gained 100 pounds on the steroids , was 150 before starting it now is almost 240. Last Assessment & Plan: Gained 100 pounds on the steroids , was 150 before starting it now is almost 240. 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 His appetite is back. She also had been to a long trip since she saw me the last time., this was a 3 week trip. And has tolerated it well. Abdominal pain 03/11/2014 04/22/2014 Last Assessment & Plan: This turned out to be more back pain and the back pain probably was from plerisy, it has resolved, it is not gall stones any ways ,we investigated appropriately for it. 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, she thinks it is from her RA, wants a wrist splint documented as of this encounter (statuses as of 04/30/2023) [facility]04-[facility]21 History of Past illness Narrative* Problem Noted Date Diagnosed Date Resolved Date Sacroiliitis 11/21/2020 03/06/2021 Tear of medial meniscus of right knee 09/24/2019 10/02/2019 GI bleed 01/28/2019 07/31/2019 Absolute anemia 09/05/2017 02/06/2018 Overview: Added automatically from request for surgery [id number] Morbid obesity with BMI of 40.0-44.9, adult 02/12/2017 07/31/2019 SOB (shortness of breath) 02/22/2016 Last Assessment & Plan: Patient was a smoker in the past , has 31 pack years of smoking Last year her lung volumes showed some restriction. We were treating for asthma with the steroid inhaler but she might have to be on a LABA as she has been having worsening exercise tolerance. Her anemia in the past contributed to this too. Need to recheck her levels Morbid obesity 10/18/2015 02/12/2017 Overview: Gained 100 pounds on the steroids , was 150 before starting it now is almost 240. Last Assessment & Plan: Gained 100 pounds on the steroids , was 150 before starting it now is almost 240. 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 His appetite is back. She also had been to a long trip since she saw me the last time., this was a 3 week trip. And has tolerated it well. Abdominal pain 03/11/2014 04/22/2014 Last Assessment & Plan: This turned out to be more back pain and the back pain probably was from plerisy, it has resolved, it is not gall stones any ways ,we investigated appropriately for it. 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, she thinks it is from her RA, wants a wrist splint documented as of this encounter (statuses as of 05/21/2023) [facility]04[facility] History of Past illness Narrative* Problem Noted Date Diagnosed Date Resolved Date Sacroiliitis 11/21/2020 03/06/2021 Tear of medial meniscus of right knee 09/24/2019 10/02/2019 GI bleed 01/28/2019 07/31/2019 Absolute anemia 09/05/2017 02/06/2018 Overview: Added automatically from request for surgery [id number] Morbid obesity with BMI of 40.0-44.9, adult 02/12/2017 07/31/2019 SOB (shortness of breath) 02/22/2016 Last Assessment & Plan: Patient was a smoker in the past , has 31 pack years of smoking Last year her lung volumes showed some restriction. We were treating for asthma with the steroid inhaler but she might have to be on a LABA as she has been having worsening exercise tolerance. Her anemia in the past contributed to this too. Need to recheck her levels Morbid obesity 10/18/2015 02/12/2017 Overview: Gained 100 pounds on the steroids , was 150 before starting it now is almost 240. Last Assessment & Plan: Gained 100 pounds on the steroids , was 150 before starting it now is almost 240. 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 His appetite is back. She also had been to a long trip since she saw me the last time., this was a 3 week trip. And has tolerated it well. Abdominal pain 03/11/2014 04/22/2014 Last Assessment & Plan: This turned out to be more back pain and the back pain probably was from plerisy, it has resolved, it is not gall stones any ways ,we investigated appropriately for it. 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, she thinks it is from her RA, wants a wrist splint documented as of this encounter (statuses as of 05/28/2023) [facility] History of Past illness Narrative* Problem Noted Date Diagnosed Date Resolved Date Sacroiliitis 11/21/2020 03/06/2021 Tear of medial meniscus of right knee 09/24/2019 10/02/2019 GI bleed 01/28/2019 07/31/2019 Absolute anemia 09/05/2017 02/06/2018 Overview: Added automatically from request for surgery [id number] Morbid obesity with BMI of 40.0-44.9, adult 02/12/2017 07/31/2019 SOB (shortness of breath) 02/22/2016 Last Assessment & Plan: Patient was a smoker in the past , has 31 pack years of smoking Last year her lung volumes showed some restriction. We were treating for asthma with the steroid inhaler but she might have to be on a LABA as she has been having worsening exercise tolerance. Her anemia in the past contributed to this too. Need to recheck her levels Morbid obesity 10/18/2015 02/12/2017 Overview: Gained 100 pounds on the steroids , was 150 before starting it now is almost 240. Last Assessment & Plan: Gained 100 pounds on the steroids , was 150 before starting it now is almost 240. 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 His appetite is back. She also had been to a long trip since she saw me the last time., this was a 3 week trip. And has tolerated it well. Abdominal pain 03/11/2014 04/22/2014 Last Assessment & Plan: This turned out to be more back pain and the back pain probably was from plerisy, it has resolved, it is not gall stones any ways ,we investigated appropriately for it. 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, she thinks it is from her RA, wants a wrist splint documented as of this encounter (statuses as of 06/03/2023) [facility] History of Past illness Narrative* Problem Noted Date Diagnosed Date Resolved Date Sacroiliitis 11/21/2020 03/06/2021 Tear of medial meniscus of right knee 09/24/2019 10/02/2019 GI bleed 01/28/2019 07/31/2019 Absolute anemia 09/05/2017 02/06/2018 Overview: Added automatically from request for surgery [id number] Morbid obesity with BMI of 40.0-44.9, adult 02/12/2017 07/31/2019 SOB (shortness of breath) 02/22/2016 Last Assessment & Plan: Patient was a smoker in the past , has 31 pack years of smoking Last year her lung volumes showed some restriction. We were treating for asthma with the steroid inhaler but she might have to be on a LABA as she has been having worsening exercise tolerance. Her anemia in the past contributed to this too. Need to recheck her levels Morbid obesity 10/18/2015 02/12/2017 Overview: Gained 100 pounds on the steroids , was 150 before starting it now is almost 240. Last Assessment & Plan: Gained 100 pounds on the steroids , was 150 before starting it now is almost 240. 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 His appetite is back. She also had been to a long trip since she saw me the last time., this was a 3 week trip. And has tolerated it well. Abdominal pain 03/11/2014 04/22/2014 Last Assessment & Plan: This turned out to be more back pain and the back pain probably was from plerisy, it has resolved, it is not gall stones any ways ,we investigated appropriately for it. 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, she thinks it is from her RA, wants a wrist splint documented as of this encounter (statuses as of 06/03/2023) [facility] History of Past illness Narrative* Problem Noted Date Diagnosed Date Resolved Date Sacroiliitis 11/21/2020 03/06/2021 Tear of medial meniscus of right knee 09/24/2019 10/02/2019 GI bleed 01/28/2019 07/31/2019 Absolute anemia 09/05/2017 02/06/2018 Overview: Added automatically from request for surgery [id number] Morbid obesity with BMI of 40.0-44.9, adult 02/12/2017 07/31/2019 SOB (shortness of breath) 02/22/2016 Last Assessment & Plan: Patient was a smoker in the past , has 31 pack years of smoking Last year her lung volumes showed some restriction. We were treating for asthma with the steroid inhaler but she might have to be on a LABA as she has been having worsening exercise tolerance. Her anemia in the past contributed to this too. Need to recheck her levels Morbid obesity 10/18/2015 02/12/2017 Overview: Gained 100 pounds on the steroids , was 150 before starting it now is almost 240. Last Assessment & Plan: Gained 100 pounds on the steroids , was 150 before starting it now is almost 240. 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 His appetite is back. She also had been to a long trip since she saw me the last time., this was a 3 week trip. And has tolerated it well. Abdominal pain 03/11/2014 04/22/2014 Last Assessment & Plan: This turned out to be more back pain and the back pain probably was from plerisy, it has resolved, it is not gall stones any ways ,we investigated appropriately for it. 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, she thinks it is from her RA, wants a wrist splint documented as of this encounter (statuses as of 06/19/2023) [facility]04-26-2021 History of Past illness Narrative* Problem Noted Date Diagnosed Date Resolved Date Sacroiliitis 11/21/2020 03/06/2021 Tear of medial meniscus of right knee 09/24/2019 10/02/2019 GI bleed 01/28/2019 07/31/2019 Absolute anemia 09/05/2017 02/06/2018 Overview: Added automatically from request for surgery [id number] Morbid obesity with BMI of 40.0-44.9, adult 02/12/2017 07/31/2019 SOB (shortness of breath) 02/22/2016 Last Assessment & Plan: Patient was a smoker in the past , has 31 pack years of smoking Last year her lung volumes showed some restriction. We were treating for asthma with the steroid inhaler but she might have to be on a LABA as she has been having worsening exercise tolerance. Her anemia in the past contributed to this too. Need to recheck her levels Morbid obesity 10/18/2015 02/12/2017 Overview: Gained 100 pounds on the steroids , was 150 before starting it now is almost 240. Last Assessment & Plan: Gained 100 pounds on the steroids , was 150 before starting it now is almost 240. 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 His appetite is back. She also had been to a long trip since she saw me the last time., this was a 3 week trip. And has tolerated it well. Abdominal pain 03/11/2014 04/22/2014 Last Assessment & Plan: This turned out to be more back pain and the back pain probably was from plerisy, it has resolved, it is not gall stones any ways ,we investigated appropriately for it. 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, she thinks it is from her RA, wants a wrist splint documented as of this encounter (statuses as of 07/04/2023) [facility]04-26-[facility]21 History of Past illness Narrative* Problem Noted Date Diagnosed Date Resolved Date Sacroiliitis 11/21/2020 03/06/2021 Tear of medial meniscus of right knee 09/24/2019 10/02/2019 GI bleed 01/28/2019 07/31/2019 Absolute anemia 09/05/2017 02/06/2018 Overview: Added automatically from request for surgery [id number] Morbid obesity with BMI of 40.0-44.9, adult 02/12/2017 07/31/2019 SOB (shortness of breath) 02/22/2016 Last Assessment & Plan: Patient was a smoker in the past , has 31 pack years of smoking Last year her lung volumes showed some restriction. We were treating for asthma with the steroid inhaler but she might have to be on a LABA as she has been having worsening exercise tolerance. Her anemia in the past contributed to this too. Need to recheck her levels Morbid obesity 10/18/2015 02/12/2017 Overview: Gained 100 pounds on the steroids , was 150 before starting it now is almost 240. Last Assessment & Plan: Gained 100 pounds on the steroids , was 150 before starting it now is almost 240. 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 His appetite is back. She also had been to a long trip since she saw me the last time., this was a 3 week trip. And has tolerated it well. Abdominal pain 03/11/2014 04/22/2014 Last Assessment & Plan: This turned out to be more back pain and the back pain probably was from plerisy, it has resolved, it is not gall stones any ways ,we investigated appropriately for it. 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, she thinks it is from her RA, wants a wrist splint documented as of this encounter (statuses as of 08/30/2023) [facility]04-26-2021 History of Past illness Narrative* Problem Noted Date Diagnosed Date Resolved Date Sacroiliitis 11/21/2020 03/06/2021 Tear of medial meniscus of right knee 09/24/2019 10/02/2019 GI bleed 01/28/2019 07/31/2019 Absolute anemia 09/05/2017 02/06/2018 Overview: Added automatically from request for surgery [id number] Morbid obesity with BMI of 40.0-44.9, adult 02/12/2017 07/31/2019 SOB (shortness of breath) 02/22/2016 Last Assessment & Plan: Patient was a smoker in the past , has 31 pack years of smoking Last year her lung volumes showed some restriction. We were treating for asthma with the steroid inhaler but she might have to be on a LABA as she has been having worsening exercise tolerance. Her anemia in the past contributed to this too. Need to recheck her levels Morbid obesity 10/18/2015 02/12/2017 Overview: Gained 100 pounds on the steroids , was 150 before starting it now is almost 240. Last Assessment & Plan: Gained 100 pounds on the steroids , was 150 before starting it now is almost 240. 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 His appetite is back. She also had been to a long trip since she saw me the last time., this was a 3 week trip. And has tolerated it well. Abdominal pain 03/11/2014 04/22/2014 Last Assessment & Plan: This turned out to be more back pain and the back pain probably was from plerisy, it has resolved, it is not gall stones any ways ,we investigated appropriately for it. 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, she thinks it is from her RA, wants a wrist splint documented as of this encounter (statuses as of 09/16/2023) [facility]04-[facility]21 History of Past illness Narrative* Problem Noted Date Diagnosed Date Resolved Date Sacroiliitis 11/21/2020 03/06/2021 Tear of medial meniscus of right knee 09/24/2019 10/02/2019 GI bleed 01/28/2019 07/31/2019 Absolute anemia 09/05/2017 02/06/2018 Overview: Added automatically from request for surgery [id number] Morbid obesity with BMI of 40.0-44.9, adult 02/12/2017 07/31/2019 SOB (shortness of breath) 02/22/2016 Last Assessment & Plan: Patient was a smoker in the past , has 31 pack years of smoking Last year her lung volumes showed some restriction. We were treating for asthma with the steroid inhaler but she might have to be on a LABA as she has been having worsening exercise tolerance. Her anemia in the past contributed to this too. Need to recheck her levels Morbid obesity 10/18/2015 02/12/2017 Overview: Gained 100 pounds on the steroids , was 150 before starting it now is almost 240. Last Assessment & Plan: Gained 100 pounds on the steroids , was 150 before starting it now is almost 240. 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 His appetite is back. She also had been to a long trip since she saw me the last time., this was a 3 week trip. And has tolerated it well. Abdominal pain 03/11/2014 04/22/2014 Last Assessment & Plan: This turned out to be more back pain and the back pain probably was from plerisy, it has resolved, it is not gall stones any ways ,we investigated appropriately for it. 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, she thinks it is from her RA, wants a wrist splint documented as of this encounter (statuses as of 09/19/2023) [facility] History of Past illness Narrative* Problem Noted Date Diagnosed Date Resolved Date Sacroiliitis 11/21/2020 03/06/2021 Tear of medial meniscus of right knee 09/24/2019 10/02/2019 GI bleed 01/28/2019 07/31/2019 Absolute anemia 09/05/2017 02/06/2018 Overview: Added automatically from request for surgery [id number] Morbid obesity with BMI of 40.0-44.9, adult 02/12/2017 07/31/2019 SOB (shortness of breath) 02/22/2016 Last Assessment & Plan: Patient was a smoker in the past , has 31 pack years of smoking Last year her lung volumes showed some restriction. We were treating for asthma with the steroid inhaler but she might have to be on a LABA as she has been having worsening exercise tolerance. Her anemia in the past contributed to this too. Need to recheck her levels Morbid obesity 10/18/2015 02/12/2017 Overview: Gained 100 pounds on the steroids , was 150 before starting it now is almost 240. Last Assessment & Plan: Gained 100 pounds on the steroids , was 150 before starting it now is almost 240. 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 His appetite is back. She also had been to a long trip since she saw me the last time., this was a 3 week trip. And has tolerated it well. Abdominal pain 03/11/2014 04/22/2014 Last Assessment & Plan: This turned out to be more back pain and the back pain probably was from plerisy, it has resolved, it is not gall stones any ways ,we investigated appropriately for it. 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, she thinks it is from her RA, wants a wrist splint documented as of this encounter (statuses as of 09/26/2023) [facility]04-[facility] History of Past illness Narrative* Problem Noted Date Diagnosed Date Resolved Date Sacroiliitis 11/21/2020 03/06/2021 Tear of medial meniscus of right knee 09/24/2019 10/02/2019 GI bleed 01/28/2019 07/31/2019 Absolute anemia 09/05/2017 02/06/2018 Overview: Added automatically from request for surgery [id number] Morbid obesity with BMI of 40.0-44.9, adult 02/12/2017 07/31/2019 SOB (shortness of breath) 02/22/2016 Last Assessment & Plan: Patient was a smoker in the past , has 31 pack years of smoking Last year her lung volumes showed some restriction. We were treating for asthma with the steroid inhaler but she might have to be on a LABA as she has been having worsening exercise tolerance. Her anemia in the past contributed to this too. Need to recheck her levels Morbid obesity 10/18/2015 02/12/2017 Overview: Gained 100 pounds on the steroids , was 150 before starting it now is almost 240. Last Assessment & Plan: Gained 100 pounds on the steroids , was 150 before starting it now is almost 240. 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 His appetite is back. She also had been to a long trip since she saw me the last time., this was a 3 week trip. And has tolerated it well. Abdominal pain 03/11/2014 04/22/2014 Last Assessment & Plan: This turned out to be more back pain and the back pain probably was from plerisy, it has resolved, it is not gall stones any ways ,we investigated appropriately for it. 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, she thinks it is from her RA, wants a wrist splint documented as of this encounter (statuses as of 10/15/2023) [facility]04[facility] History of Past illness Narrative* Problem Noted Date Diagnosed Date Resolved Date Sacroiliitis 11/21/2020 03/06/2021 Tear of medial meniscus of right knee 09/24/2019 10/02/2019 GI bleed 01/28/2019 07/31/2019 Absolute anemia 09/05/2017 02/06/2018 Overview: Added automatically from request for surgery [id number] Morbid obesity with BMI of 40.0-44.9, adult 02/12/2017 07/31/2019 SOB (shortness of breath) 02/22/2016 Last Assessment & Plan: Patient was a smoker in the past , has 31 pack years of smoking Last year her lung volumes showed some restriction. We were treating for asthma with the steroid inhaler but she might have to be on a LABA as she has been having worsening exercise tolerance. Her anemia in the past contributed to this too. Need to recheck her levels Morbid obesity 10/18/2015 02/12/2017 Overview: Gained 100 pounds on the steroids , was 150 before starting it now is almost 240. Last Assessment & Plan: Gained 100 pounds on the steroids , was 150 before starting it now is almost 240. 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 His appetite is back. She also had been to a long trip since she saw me the last time., this was a 3 week trip. And has tolerated it well. Abdominal pain 03/11/2014 04/22/2014 Last Assessment & Plan: This turned out to be more back pain and the back pain probably was from plerisy, it has resolved, it is not gall stones any ways ,we investigated appropriately for it. 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, she thinks it is from her RA, wants a wrist splint documented as of this encounter (statuses as of 10/18/2023) [facility] History of Past illness Narrative* Problem Noted Date Diagnosed Date Resolved Date Sacroiliitis 11/21/2020 03/06/2021 Tear of medial meniscus of right knee 09/24/2019 10/02/2019 GI bleed 01/28/2019 07/31/2019 Absolute anemia 09/05/2017 02/06/2018 Overview: Added automatically from request for surgery [id number] Morbid obesity with BMI of 40.0-44.9, adult 02/12/2017 07/31/2019 SOB (shortness of breath) 02/22/2016 Last Assessment & Plan: Patient was a smoker in the past , has 31 pack years of smoking Last year her lung volumes showed some restriction. We were treating for asthma with the steroid inhaler but she might have to be on a LABA as she has been having worsening exercise tolerance. Her anemia in the past contributed to this too. Need to recheck her levels Morbid obesity 10/18/2015 02/12/2017 Overview: Gained 100 pounds on the steroids , was 150 before starting it now is almost 240. Last Assessment & Plan: Gained 100 pounds on the steroids , was 150 before starting it now is almost 240. 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 His appetite is back. She also had been to a long trip since she saw me the last time., this was a 3 week trip. And has tolerated it well. Abdominal pain 03/11/2014 04/22/2014 Last Assessment & Plan: This turned out to be more back pain and the back pain probably was from plerisy, it has resolved, it is not gall stones any ways ,we investigated appropriately for it. 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, she thinks it is from her RA, wants a wrist splint documented as of this encounter (statuses as of 11/12/2023) [facility] Rheumatoid arthritis involving multiple sites, unspecified whether rheumatoid factor present (HCC) Other osteoporosis with current pathological fracture with malunion, subsequent encounter [facility] Diagnosis Anxiety and depression Dysthymic disorder [facility] Diagnosis Other osteoporosis with current pathological fracture with malunion, subsequent encounter- Primary Rheumatoid arthritis involving multiple sites, unspecified whether rheumatoid factor present (HCC) [facility] Diagnosis Other osteoporosis with current pathological fracture with malunion, subsequent encounter- Primary Rheumatoid arthritis involving multiple sites, unspecified whether rheumatoid factor present (HCC) [facility] Diagnosis Radiculopathy, lumbar region Thoracic or lumbosacral neuritis or radiculitis, unspecified [facility] Diagnosis SOB (shortness of breath) Shortness of breath documented in this encounter [facility]* Diagnosis Class 1 obesity with body mass index (BMI) of 34.0 to 34.9 in adult Hyperlipidemia with target LDL less than 130 Other and unspecified hyperlipidemia [facility] Diagnosis Encounter for screening mammogram for breast cancer documented in this encounter [facility]* Diagnosis Vitamin D deficiency Unspecified vitamin D deficiency Rheumatoid arthritis involving multiple sites with positive rheumatoid factor (HCC) [facility] Diagnosis Lumbar spondylosis- Primary Lumbosacral spondylosis without myelopathy Chronic bilateral low back pain without sciatica Myofascial pain Mylagia and myositis, unspecified Fibromyalgia Mylagia and myositis, unspecified Lumbar spondylosis Lumbosacral spondylosis without myelopathy [facility] Diagnosis Lumbar spondylosis- Primary Lumbosacral spondylosis without myelopathy Lumbar spondylosis Lumbosacral spondylosis without myelopathy [facility] Diagnosis Other osteoporosis with current pathological fracture with malunion, subsequent encounter- Primary Rheumatoid arthritis involving multiple sites, unspecified whether rheumatoid factor present (HCC) [facility] Diagnosis High risk medication use Encounter for long-term (current) use of other medications Rheumatoid arthritis involving multiple sites with positive rheumatoid factor (HCC) Localized osteoporosis without current pathological fracture [facility] Diagnosis Other osteoporosis with current pathological fracture with malunion, subsequent encounter- Primary Rheumatoid arthritis involving multiple sites, unspecified whether rheumatoid factor present (HCC) [facility] Diagnosis Radiculopathy, lumbar region Thoracic or lumbosacral neuritis or radiculitis, unspecified [facility] Diagnosis Other osteoporosis with current pathological fracture with malunion, subsequent encounter- Primary Rheumatoid arthritis involving multiple sites, unspecified whether rheumatoid factor present (HCC) [facility] Diagnosis Exposure to 2019 novel coronavirus- Primary [facility] Diagnosis COVID- Primary [facility] Diagnosis Radiculopathy, lumbar region Thoracic or lumbosacral neuritis or radiculitis, unspecified [facility] Diagnosis High risk medication use Encounter for long-term (current) use of other medications Rheumatoid arthritis involving multiple sites with positive rheumatoid factor (HCC) Localized osteoporosis without current pathological fracture [facility] Diagnosis Localized osteoporosis without current pathological fracture- Primary Pain in left hip Pain in joint, pelvic region and thigh Fall, initial encounter Rash and nonspecific skin eruption Rash and other nonspecific skin eruption Rheumatoid arthritis involving multiple sites with positive rheumatoid factor (HCC) High risk medication use Encounter for long-term (current) use of other medications Vitamin D deficiency Unspecified vitamin D deficiency [facility] Diagnosis Pain in left hip Pain in joint, pelvic region and thigh Fall, initial encounter [facility] Diagnosis Other osteoporosis with current pathological fracture with malunion, subsequent encounter- Primary Rheumatoid arthritis involving multiple sites, unspecified whether rheumatoid factor present (HCC) [facility] Diagnosis Chronic bilateral low back pain without sciatica- Primary Lumbar spondylosis Lumbosacral spondylosis without myelopathy Myofascial pain Mylagia and myositis, unspecified Fibromyalgia Mylagia and myositis, unspecified Sacroiliitis (HCC) Sacroiliitis, not elsewhere classified [facility] Diagnosis Other osteoporosis with current pathological fracture with malunion, subsequent encounter- Primary Rheumatoid arthritis involving multiple sites, unspecified whether rheumatoid factor present (HCC) [facility] Diagnosis Onset Date Resolution Status Acute bronchitis acute Contact with or suspected ex posure to other viral communicable disease acute Osteoarthritis of right knee acute Other instability, right knee acute Right knee pain acute Acute pharyngitis, unspecified acute URI (upper respiratory infection) acute [facility] Work Phone: Evaluation note* Diagnosis High risk medication use Encounter for long-term (current) use of other medications Rheumatoid arthritis involving multiple sites with positive rheumatoid factor ([facility]) Localized osteoporosis without current pathological fracture [facility] Diagnosis Onset Date Resolution Status Acute bronchitis acute Contact with or suspected ex posure to other viral communicable disease acute Osteoarthritis of right knee acute Other instability, right knee acute Right knee pain acute Acute pharyngitis, unspecified acute URI (upper respiratory infection) acute Diarrhea chronic Nausea chronic [facility] Work Phone: Evaluation note* Diagnosis Pain in joint, multiple sites- Primary Osteoporosis, unspecified osteoporosis type, unspecified pathological fracture presence [facility] Diagnosis Rheumatoid arthritis involving multiple sites, unspecified whether rheumatoid factor present ([facility])- Primary Vitamin D deficiency Unspecified vitamin D deficiency Other osteoporosis with current pathological fracture with malunion, subsequent encounter [facility] Diagnosis Anxiety and depression Dysthymic disorder documented in this encounter [facility]* Diagnosis Onset Date Resolution Status Osteoarthritis of right knee acute Other instability, right knee acute Right knee pain acute Acute pharyngitis, unspecified acute URI (upper respiratory infection) acute Diarrhea chronic Nausea chronic Internal derangement of right knee acute Osteoarthritis of right knee acute Pain in right pelaez acute Diarrhea chronic Nausea chronic [facility] Work Phone: Evaluation note* Diagnosis Onset Date Resolution Status Osteoarthritis of right knee acute Other instability, right knee acute Right knee pain acute Acute pharyngitis, unspecified acute URI (upper respiratory infection) acute Diarrhea chronic Nausea chronic Internal derangement of right knee acute Osteoarthritis of right knee acute Pain in right pelaez acute Diarrhea chronic Nausea chronic Internal derangement of right knee acute Osteoarthritis of right knee acute Right knee meniscal tear acu [facility] Work Phone: Evaluation note* Diagnosis High risk medication use Encounter for long-term (current) use of other medications Rheumatoid arthritis involving multiple sites with positive rheumatoid factor (HCC) Localized osteoporosis without current pathological fracture [facility] High risk medication use Encounter for long-term (current) use of other medications Rheumatoid arthritis involving multiple sites with positive rheumatoid factor (HCC) Localized osteoporosis without current pathological fracture [facility] Onset Date Resolution Status Diarrhea chronic Nausea chronic Internal derangement of right knee acute Osteoarthritis of right knee acute Pain in right pelaez acute Diarrhea chronic Nausea chronic Internal derangement of right knee acute Osteoarthritis of right knee acute Right knee meniscal tear acu te Fibromyalgia acute Rheumatoid arthritis acute Right knee DJD acute [facility] Work Phone: Evaluation note* Diagnosis Onset Date Resolution Status Internal derangement of right knee acute Osteoarthritis of right knee acute Pain in right pelaez acute Diarrhea chronic Nausea chronic Internal derangement of right knee acute Osteoarthritis of right knee acute Right knee meniscal tear acu te Fibromyalgia acute Rheumatoid arthritis acute Right knee DJD acute S/P total knee arthroplasty acute [facility] Work Phone: Evaluation note* Diagnosis High risk medication use Encounter for long-term (current) use of other medications Rheumatoid arthritis involving multiple sites with positive rheumatoid factor (HCC) Localized osteoporosis without current pathological fracture [facility] Rheumatoid arthritis involving multiple sites, unspecified whether rheumatoid factor present (HCC)- Primary Vitamin D deficiency Unspecified vitamin D deficiency Localized osteoporosis without current pathological fracture [facility] Osteoporosis, unspecified- Primary [facility] Diagnosis Vitamin D deficiency Unspecified vitamin D deficiency Rheumatoid arthritis involving multiple sites with positive rheumatoid factor (HCC) [facility] Rheumatoid arthritis involving multiple sites with positive rheumatoid factor (HCC)- Primary High risk medication use Encounter for long-term (current) use of other medications Localized osteoporosis without current pathological fracture Vitamin D deficiency Unspecified vitamin D deficiency [facility] Diagnosis Rheumatoid arthritis involving multiple sites, unspecified whether rheumatoid factor present (HCC) [facility] Right knee pain, unspecified chronicity [facility] Localized osteoporosis without current pathological fracture [facility] Diagnosis Rheumatoid arthritis involving multiple sites, unspecified whether rheumatoid factor present (HCC) [facility] Diagnosis Onset Date Resolution Status Orthopedic aftercare acute Diarrhea chronic [facility] Work Phone: Evaluation note* Diagnosis Rheumatoid arthritis involving multiple sites, unspecified whether rheumatoid factor present (HCC) documented [facility] this [facility] Diagnosis Onset Date Resolution Status Diarrhea chronic [facility] Work Phone: Evaluation note* Diagnosis High risk medication use Encounter for long-term (current) use of other medications Rheumatoid arthritis involving multiple sites with positive rheumatoid factor (HCC) Localized osteoporosis without current pathological fracture [facility] Diagnosis Onset Date Resolution Status Diarrhea chronic Right knee pain acute [facility] Work Phone: Evaluation note* Diagnosis Rheumatoid arthritis involving multiple sites, unspecified whether rheumatoid factor present (HCC) Osteoporosis, unspecified Vitamin D deficiency Unspecified vitamin D deficiency [facility] Diagnosis Rheumatoid arthritis involving multiple sites with positive rheumatoid factor (HCC)- Primary High risk medication use Encounter for long-term (current) use of other medications Localized osteoporosis without current pathological fracture Vitamin D deficiency Unspecified vitamin D deficiency [facility] Diagnosis Rheumatoid arthritis involving multiple sites with positive rheumatoid factor (HCC)- Primary [facility] Diagnosis High risk medication use Encounter for long-term (current) use of other medications Rheumatoid arthritis involving multiple sites with positive rheumatoid factor (HCC) Localized osteoporosis without current pathological fracture [facility] Diagnosis Rheumatoid arthritis involving multiple sites with positive rheumatoid factor (HCC)- Primary [facility] in this [facility]* Diagnosis Rheumatoid arthritis involving multiple sites with positive rheumatoid factor (HCC)- Primary [facility] Diagnosis Establishing care with new doctor, encounter for- Primary Other reasons for seeking consultation Breast screening, unspecified Rheumatoid arthritis Fibromyalgia Mylagia and myositis, unspecified Depression Depressive disorder, not elsewhere classified Asthma Unspecified asthma Routine health maintenance Routine general medical examination at a health care facility Abdominal pain Abdominal pain, unspecified site Mycoplasma pneumonia- Primary Pneumonia due to Mycoplasma pneumoniae Asthma Unspecified asthma Abdominal pain Abdominal pain, unspecified site Rheumatoid arthritis(714.0) Rheumatoid arthritis Fibromyalgia Mylagia and myositis, unspecified Rheumatoid arthritis(714.0)- Primary Rheumatoid arthritis Carotid artery disease (HCC) Unspecified disorders of arteries and arterioles Mycoplasma pneumonia Pneumonia due to Mycoplasma pneumoniae Fibromyalgia- Primary Mylagia and myositis, unspecified Need for prophylactic vaccination and inoculation against influenza Hyperlipidemia LDL goal < 130 Other and unspecified hyperlipidemia Asthma Unspecified asthma Depression Depressive disorder, not elsewhere classified Fracture of triquetrum of left wrist, closed Closed fracture of triquetral (cuneiform) bone of wrist Rheumatoid arthritis(714.0) Rheumatoid arthritis Routine health maintenance Routine general medical examination at a health care facility Routine adult health maintenance Routine general medical examination at a health care facility Carotid artery disease (HCC)- Primary Unspecified disorders of arteries and arterioles Depression Depressive disorder, not elsewhere classified Fibromyalgia Mylagia and myositis, unspecified Asthma Unspecified asthma Rheumatoid arthritis(714.0) Rheumatoid arthritis Insomnia Insomnia, unspecified Hyperlipidemia LDL goal < 130 Other and unspecified hyperlipidemia Carotid artery disease (HCC)- Primary Unspecified disorders of arteries and arterioles Rheumatoid arthritis(714.0) Rheumatoid arthritis Fibromyalgia Mylagia and myositis, unspecified Depression Depressive disorder, not elsewhere classified Asthma Unspecified asthma Hyperlipidemia LDL goal < 130 Other and unspecified hyperlipidemia GERD (gastroesophageal reflux disease) Esophageal reflux Anemia, unspecified- Primary History of peptic ulcer Personal history of peptic ulcer disease Rheumatoid arthritis involving multiple sites with positive rheumatoid factor (HCC)- Primary Anemia due to other cause Screening mammogram for high-risk patient Keratoconjunctivitis sicca, in Sjogren's syndrome (HCC) Sicca syndrome Recurrent major depression in partial remission (HCC) Major depressive disorder, recurrent episode, in partial or unspecified remission Bunion, right Bunion Recurrent major depression in partial remission (HCC)- Primary Major depressive disorder, recurrent episode, in partial or unspecified remission Rheumatoid arthritis involving multiple sites with positive rheumatoid factor (HCC) Left-sided carotid artery disease (HCC) Vitamin D deficiency Unspecified vitamin D deficiency Iron 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) Gastroesophageal reflux disease without esophagitis Esophageal reflux Morbid obesity, unspecified obesity type (HCC) Recurrent major depressive disorder, in partial remission (HCC) Hospital discharge follow-up- Primary Other follow-up examination Rheumatoid arthritis involving multiple sites with positive rheumatoid factor (HCC) Vitamin D deficiency Unspecified vitamin D deficiency Occlusion of left carotid artery Occlusion and stenosis of carotid artery without mention of cerebral infarction Recurrent major depressive disorder, in partial remission (HCC) Left-sided carotid artery disease (HCC) Encounter for screening mammogram for malignant neoplasm of breast Other screening mammogram Malaise and fatigue Other malaise and fatigue Iron deficiency Iron deficiency anemia, unspecified SOB (shortness of breath) Shortness of breath Anemia, unspecified type- Primary Rheumatoid arthritis involving multiple sites with positive rheumatoid factor (HCC) Need for vaccination Need for prophylactic vaccination and inoculation against unspecified single disease Fibromyalgia Mylagia and myositis, unspecified BPPV (benign paroxysmal positional vertigo), bilateral Osteoporosis Osteoporosis, unspecified Anemia, unspecified type- Primary 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, right Encounter for screening mammogram for high-risk patient Osteoporosis without current pathological fracture, unspecified osteoporosis type Mixed hyperlipidemia Morbid obesity, unspecified obesity type (HCC) SOB (shortness of breath) Shortness of breath Iron malabsorption Other specified intestinal malabsorption Pre-operative examination- Primary Preoperative examination, unspecified Acute medial meniscus tear of right knee, subsequent encounter Chronic diastolic CHF (congestive heart failure) (HCC) Chronic diastolic heart failure Essential hypertension Unspecified essential hypertension Hyperlipidemia with target LDL less than 130 Other and unspecified hyperlipidemia PVC's (premature ventricular contractions) Other premature beats TY (dyspnea on exertion) Other dyspnea and respiratory abnormality Stenosis of carotid artery, unspecified laterality Fibromyalgia Mylagia and myositis, unspecified Insomnia, unspecified type Chronic obstructive pulmonary disease, unspecified COPD type (HCC) GERD without esophagitis Esophageal reflux Iron deficiency anemia, unspecified iron deficiency anemia type Rheumatoid arthritis involving multiple sites, unspecified rheumatoid factor presence Other osteoporosis with current pathological fracture with malunion, subsequent encounter Mild episode of recurrent major depressive disorder (HCC) Rheumatoid arthritis involving multiple sites with positive rheumatoid factor (HCC)- Primary [facility] Establishing care with new doctor, encounter for- Primary Other reasons for seeking consultation Breast screening, unspecified Rheumatoid arthritis Fibromyalgia Mylagia and myositis, unspecified Depression Depressive disorder, not elsewhere classified Asthma Unspecified asthma Routine health maintenance Routine general medical examination at a health care facility Abdominal pain Abdominal pain, unspecified site Mycoplasma pneumonia- Primary Pneumonia due to Mycoplasma pneumoniae Asthma Unspecified asthma Abdominal pain Abdominal pain, unspecified site Rheumatoid arthritis(714.0) Rheumatoid arthritis Fibromyalgia Mylagia and myositis, unspecified Rheumatoid arthritis(714.0)- Primary Rheumatoid arthritis Carotid artery disease (HCC) Unspecified disorders of arteries and arterioles Mycoplasma pneumonia Pneumonia due to Mycoplasma pneumoniae Fibromyalgia- Primary Mylagia and myositis, unspecified Need for prophylactic vaccination and inoculation against influenza Hyperlipidemia LDL goal < 130 Other and unspecified hyperlipidemia Asthma Unspecified asthma Depression Depressive disorder, not elsewhere classified Fracture of triquetrum of left wrist, closed Closed fracture of triquetral (cuneiform) bone of wrist Rheumatoid arthritis(714.0) Rheumatoid arthritis Routine health maintenance Routine general medical examination at a health care facility Routine adult health maintenance Routine general medical examination at a health care facility Carotid artery disease (HCC)- Primary Unspecified disorders of arteries and arterioles Depression Depressive disorder, not elsewhere classified Fibromyalgia Mylagia and myositis, unspecified Asthma Unspecified asthma Rheumatoid arthritis(714.0) Rheumatoid arthritis Insomnia Insomnia, unspecified Hyperlipidemia LDL goal < 130 Other and unspecified hyperlipidemia Carotid artery disease (HCC)- Primary Unspecified disorders of arteries and arterioles Rheumatoid arthritis(714.0) Rheumatoid arthritis Fibromyalgia Mylagia and myositis, unspecified Depression Depressive disorder, not elsewhere classified Asthma Unspecified asthma Hyperlipidemia LDL goal < 130 Other and unspecified hyperlipidemia GERD (gastroesophageal reflux disease) Esophageal reflux Anemia, unspecified- Primary History of peptic ulcer Personal history of peptic ulcer disease Rheumatoid arthritis involving multiple sites with positive rheumatoid factor (HCC)- Primary Anemia due to other cause Screening mammogram for high-risk patient Keratoconjunctivitis sicca, in Sjogren's syndrome (HCC) Sicca syndrome Recurrent major depression in partial remission (HCC) Major depressive disorder, recurrent episode, in partial or unspecified remission Bunion, right Bunion Recurrent major depression in partial remission (HCC)- Primary Major depressive disorder, recurrent episode, in partial or unspecified remission Rheumatoid arthritis involving multiple sites with positive rheumatoid factor (HCC) Left-sided carotid artery disease (HCC) Vitamin D deficiency Unspecified vitamin D deficiency Iron 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) Gastroesophageal reflux disease without esophagitis Esophageal reflux Morbid obesity, unspecified obesity type (HCC) Recurrent major depressive disorder, in partial remission (HCC) Hospital discharge follow-up- Primary Other follow-up examination Rheumatoid arthritis involving multiple sites with positive rheumatoid factor (HCC) Vitamin D deficiency Unspecified vitamin D deficiency Occlusion of left carotid artery Occlusion and stenosis of carotid artery without mention of cerebral infarction Recurrent major depressive disorder, in partial remission (HCC) Left-sided carotid artery disease (HCC) Encounter for screening mammogram for malignant neoplasm of breast Other screening mammogram Malaise and fatigue Other malaise and fatigue Iron deficiency Iron deficiency anemia, unspecified SOB (shortness of breath) Shortness of breath Anemia, unspecified type- Primary Rheumatoid arthritis involving multiple sites with positive rheumatoid factor (HCC) Need for vaccination Need for prophylactic vaccination and inoculation against unspecified single disease Fibromyalgia Mylagia and myositis, unspecified BPPV (benign paroxysmal positional vertigo), bilateral Osteoporosis Osteoporosis, unspecified Anemia, unspecified type- Primary 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, right Encounter for screening mammogram for high-risk patient Osteoporosis without current pathological fracture, unspecified osteoporosis type Mixed hyperlipidemia Morbid obesity, unspecified obesity type (HCC) SOB (shortness of breath) Shortness of breath Iron malabsorption Other specified intestinal malabsorption Pre-operative examination- Primary Preoperative examination, unspecified Acute medial meniscus tear of right knee, subsequent encounter Chronic diastolic CHF (congestive heart failure) (HCC) Chronic diastolic heart failure Essential hypertension Unspecified essential hypertension Hyperlipidemia with target LDL less than 130 Other and unspecified hyperlipidemia PVC's (premature ventricular contractions) Other premature beats TY (dyspnea on exertion) Other dyspnea and respiratory abnormality Stenosis of carotid artery, unspecified laterality Fibromyalgia Mylagia and myositis, unspecified Insomnia, unspecified type Chronic obstructive pulmonary disease, unspecified COPD type (HCC) GERD without esophagitis Esophageal reflux Iron deficiency anemia, unspecified iron deficiency anemia type Rheumatoid arthritis involving multiple sites, unspecified rheumatoid factor presence Other osteoporosis with current pathological fracture with malunion, subsequent encounter Mild episode of recurrent major depressive disorder (HCC) Post-COVID chronic fatigue [facility] Establishing care with new doctor, encounter for- Primary Other reasons for seeking consultation Breast screening, unspecified Rheumatoid arthritis Fibromyalgia Mylagia and myositis, unspecified Depression Depressive disorder, not elsewhere classified Asthma Unspecified asthma Routine health maintenance Routine general medical examination at a health care facility Abdominal pain Abdominal pain, unspecified site Mycoplasma pneumonia- Primary Pneumonia due to Mycoplasma pneumoniae Asthma Unspecified asthma Abdominal pain Abdominal pain, unspecified site Rheumatoid arthritis(714.0) Rheumatoid arthritis Fibromyalgia Mylagia and myositis, unspecified Rheumatoid arthritis(714.0)- Primary Rheumatoid arthritis Carotid artery disease (HCC) Unspecified disorders of arteries and arterioles Mycoplasma pneumonia Pneumonia due to Mycoplasma pneumoniae Fibromyalgia- Primary Mylagia and myositis, unspecified Need for prophylactic vaccination and inoculation against influenza Hyperlipidemia LDL goal < 130 Other and unspecified hyperlipidemia Asthma Unspecified asthma Depression Depressive disorder, not elsewhere classified Fracture of triquetrum of left wrist, closed Closed fracture of triquetral (cuneiform) bone of wrist Rheumatoid arthritis(714.0) Rheumatoid arthritis Routine health maintenance Routine general medical examination at a health care facility Routine adult health maintenance Routine general medical examination at a health care facility Carotid artery disease (HCC)- Primary Unspecified disorders of arteries and arterioles Depression Depressive disorder, not elsewhere classified Fibromyalgia Mylagia and myositis, unspecified Asthma Unspecified asthma Rheumatoid arthritis(714.0) Rheumatoid arthritis Insomnia Insomnia, unspecified Hyperlipidemia LDL goal < 130 Other and unspecified hyperlipidemia Carotid artery disease (HCC)- Primary Unspecified disorders of arteries and arterioles Rheumatoid arthritis(714.0) Rheumatoid arthritis Fibromyalgia Mylagia and myositis, unspecified Depression Depressive disorder, not elsewhere classified Asthma Unspecified asthma Hyperlipidemia LDL goal < 130 Other and unspecified hyperlipidemia GERD (gastroesophageal reflux disease) Esophageal reflux Anemia, unspecified- Primary History of peptic ulcer Personal history of peptic ulcer disease Rheumatoid arthritis involving multiple sites with positive rheumatoid factor (HCC)- Primary Anemia due to other cause Screening mammogram for high-risk patient Keratoconjunctivitis sicca, in Sjogren's syndrome (HCC) Sicca syndrome Recurrent major depression in partial remission (HCC) Major depressive disorder, recurrent episode, in partial or unspecified remission Bunion, right Bunion Recurrent major depression in partial remission (HCC)- Primary Major depressive disorder, recurrent episode, in partial or unspecified remission Rheumatoid arthritis involving multiple sites with positive rheumatoid factor (HCC) Left-sided carotid artery disease (HCC) Vitamin D deficiency Unspecified vitamin D deficiency Iron 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) Gastroesophageal reflux disease without esophagitis Esophageal reflux Morbid obesity, unspecified obesity type (HCC) Recurrent major depressive disorder, in partial remission (HCC) Hospital discharge follow-up- Primary Other follow-up examination Rheumatoid arthritis involving multiple sites with positive rheumatoid factor (HCC) Vitamin D deficiency Unspecified vitamin D deficiency Occlusion of left carotid artery Occlusion and stenosis of carotid artery without mention of cerebral infarction Recurrent major depressive disorder, in partial remission (HCC) Left-sided carotid artery disease (HCC) Encounter for screening mammogram for malignant neoplasm of breast Other screening mammogram Malaise and fatigue Other malaise and fatigue Iron deficiency Iron deficiency anemia, unspecified SOB (shortness of breath) Shortness of breath Anemia, unspecified type- Primary Rheumatoid arthritis involving multiple sites with positive rheumatoid factor (HCC) Need for vaccination Need for prophylactic vaccination and inoculation against unspecified single disease Fibromyalgia Mylagia and myositis, unspecified BPPV (benign paroxysmal positional vertigo), bilateral Osteoporosis Osteoporosis, unspecified Anemia, unspecified type- Primary 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, right Encounter for screening mammogram for high-risk patient Osteoporosis without current pathological fracture, unspecified osteoporosis type Mixed hyperlipidemia Morbid obesity, unspecified obesity type (HCC) SOB (shortness of breath) Shortness of breath Iron malabsorption Other specified intestinal malabsorption Pre-operative examination- Primary Preoperative examination, unspecified Acute medial meniscus tear of right knee, subsequent encounter Chronic diastolic CHF (congestive heart failure) (HCC) Chronic diastolic heart failure Essential hypertension Unspecified essential hypertension Hyperlipidemia with target LDL less than 130 Other and unspecified hyperlipidemia PVC's (premature ventricular contractions) Other premature beats TY (dyspnea on exertion) Other dyspnea and respiratory abnormality Stenosis of carotid artery, unspecified laterality Fibromyalgia Mylagia and myositis, unspecified Insomnia, unspecified type Chronic obstructive pulmonary disease, unspecified COPD type (HCC) GERD without esophagitis Esophageal reflux Iron deficiency anemia, unspecified iron deficiency anemia type Rheumatoid arthritis involving multiple sites, unspecified rheumatoid factor presence Other osteoporosis with current pathological fracture with malunion, subsequent encounter Mild episode of recurrent major depressive disorder (HCC) Rheumatoid arthritis involving multiple sites with positive rheumatoid factor (HCC)- Primary Osteoporosis, unspecified osteoporosis type, unspecified pathological fracture presence High risk medication use Encounter for long-term (current) use of other medications Vitamin D deficiency Unspecified vitamin D deficiency Rash and nonspecific skin eruption Rash and other nonspecific skin eruption [facility] Establishing care with new doctor, encounter for- Primary Other reasons for seeking consultation Breast screening, unspecified Rheumatoid arthritis Fibromyalgia Mylagia and myositis, unspecified Depression Depressive disorder, not elsewhere classified Asthma Unspecified asthma Routine health maintenance Routine general medical examination at a health care facility Abdominal pain Abdominal pain, unspecified site Mycoplasma pneumonia- Primary Pneumonia due to Mycoplasma pneumoniae Asthma Unspecified asthma Abdominal pain Abdominal pain, unspecified site Rheumatoid arthritis(714.0) Rheumatoid arthritis Fibromyalgia Mylagia and myositis, unspecified Rheumatoid arthritis(714.0)- Primary Rheumatoid arthritis Carotid artery disease (HCC) Unspecified disorders of arteries and arterioles Mycoplasma pneumonia Pneumonia due to Mycoplasma pneumoniae Fibromyalgia- Primary Mylagia and myositis, unspecified Need for prophylactic vaccination and inoculation against influenza Hyperlipidemia LDL goal < 130 Other and unspecified hyperlipidemia Asthma Unspecified asthma Depression Depressive disorder, not elsewhere classified Fracture of triquetrum of left wrist, closed Closed fracture of triquetral (cuneiform) bone of wrist Rheumatoid arthritis(714.0) Rheumatoid arthritis Routine health maintenance Routine general medical examination at a health care facility Routine adult health maintenance Routine general medical examination at a health care facility Carotid artery disease (HCC)- Primary Unspecified disorders of arteries and arterioles Depression Depressive disorder, not elsewhere classified Fibromyalgia Mylagia and myositis, unspecified Asthma Unspecified asthma Rheumatoid arthritis(714.0) Rheumatoid arthritis Insomnia Insomnia, unspecified Hyperlipidemia LDL goal < 130 Other and unspecified hyperlipidemia Carotid artery disease (HCC)- Primary Unspecified disorders of arteries and arterioles Rheumatoid arthritis(714.0) Rheumatoid arthritis Fibromyalgia Mylagia and myositis, unspecified Depression Depressive disorder, not elsewhere classified Asthma Unspecified asthma Hyperlipidemia LDL goal < 130 Other and unspecified hyperlipidemia GERD (gastroesophageal reflux disease) Esophageal reflux Anemia, unspecified- Primary History of peptic ulcer Personal history of peptic ulcer disease Rheumatoid arthritis involving multiple sites with positive rheumatoid factor (HCC)- Primary Anemia due to other cause Screening mammogram for high-risk patient Keratoconjunctivitis sicca, in Sjogren's syndrome (HCC) Sicca syndrome Recurrent major depression in partial remission (HCC) Major depressive disorder, recurrent episode, in partial or unspecified remission Bunion, right Bunion Recurrent major depression in partial remission (HCC)- Primary Major depressive disorder, recurrent episode, in partial or unspecified remission Rheumatoid arthritis involving multiple sites with positive rheumatoid factor (HCC) Left-sided carotid artery disease (HCC) Vitamin D deficiency Unspecified vitamin D deficiency Iron 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) Gastroesophageal reflux disease without esophagitis Esophageal reflux Morbid obesity, unspecified obesity type (HCC) Recurrent major depressive disorder, in partial remission (HCC) Hospital discharge follow-up- Primary Other follow-up examination Rheumatoid arthritis involving multiple sites with positive rheumatoid factor (HCC) Vitamin D deficiency Unspecified vitamin D deficiency Occlusion of left carotid artery Occlusion and stenosis of carotid artery without mention of cerebral infarction Recurrent major depressive disorder, in partial remission (HCC) Left-sided carotid artery disease (HCC) Encounter for screening mammogram for malignant neoplasm of breast Other screening mammogram Malaise and fatigue Other malaise and fatigue Iron deficiency Iron deficiency anemia, unspecified SOB (shortness of breath) Shortness of breath Anemia, unspecified type- Primary Rheumatoid arthritis involving multiple sites with positive rheumatoid factor (HCC) Need for vaccination Need for prophylactic vaccination and inoculation against unspecified single disease Fibromyalgia Mylagia and myositis, unspecified BPPV (benign paroxysmal positional vertigo), bilateral Osteoporosis Osteoporosis, unspecified Anemia, unspecified type- Primary 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, right Encounter for screening mammogram for high-risk patient Osteoporosis without current pathological fracture, unspecified osteoporosis type Mixed hyperlipidemia Morbid obesity, unspecified obesity type (HCC) SOB (shortness of breath) Shortness of breath Iron malabsorption Other specified intestinal malabsorption Pre-operative examination- Primary Preoperative examination, unspecified Acute medial meniscus tear of right knee, subsequent encounter Chronic diastolic CHF (congestive heart failure) (HCC) Chronic diastolic heart failure Essential hypertension Unspecified essential hypertension Hyperlipidemia with target LDL less than 130 Other and unspecified hyperlipidemia PVC's (premature ventricular contractions) Other premature beats TY (dyspnea on exertion) Other dyspnea and respiratory abnormality Stenosis of carotid artery, unspecified laterality Fibromyalgia Mylagia and myositis, unspecified Insomnia, unspecified type Chronic obstructive pulmonary disease, unspecified COPD type (HCC) GERD without esophagitis Esophageal reflux Iron deficiency anemia, unspecified iron deficiency anemia type Rheumatoid arthritis involving multiple sites, unspecified rheumatoid factor presence Other osteoporosis with current pathological fracture with malunion, subsequent encounter Mild episode of recurrent major depressive disorder (HCC) Rheumatoid arthritis involving multiple sites with positive rheumatoid factor (HCC)- Primary [facility] Establishing care with new doctor, encounter for- Primary Other reasons for seeking consultation Breast screening, unspecified Rheumatoid arthritis Fibromyalgia Mylagia and myositis, unspecified Depression Depressive disorder, not elsewhere classified Asthma Unspecified asthma Routine health maintenance Routine general medical examination at a health care facility Abdominal pain Abdominal pain, unspecified site Mycoplasma pneumonia- Primary Pneumonia due to Mycoplasma pneumoniae Asthma Unspecified asthma Abdominal pain Abdominal pain, unspecified site Rheumatoid arthritis(714.0) Rheumatoid arthritis Fibromyalgia Mylagia and myositis, unspecified Rheumatoid arthritis(714.0)- Primary Rheumatoid arthritis Carotid artery disease (HCC) Unspecified disorders of arteries and arterioles Mycoplasma pneumonia Pneumonia due to Mycoplasma pneumoniae Fibromyalgia- Primary Mylagia and myositis, unspecified Need for prophylactic vaccination and inoculation against influenza Hyperlipidemia LDL goal < 130 Other and unspecified hyperlipidemia Asthma Unspecified asthma Depression Depressive disorder, not elsewhere classified Fracture of triquetrum of left wrist, closed Closed fracture of triquetral (cuneiform) bone of wrist Rheumatoid arthritis(714.0) Rheumatoid arthritis Routine health maintenance Routine general medical examination at a health care facility Routine adult health maintenance Routine general medical examination at a health care facility Carotid artery disease (HCC)- Primary Unspecified disorders of arteries and arterioles Depression Depressive disorder, not elsewhere classified Fibromyalgia Mylagia and myositis, unspecified Asthma Unspecified asthma Rheumatoid arthritis(714.0) Rheumatoid arthritis Insomnia Insomnia, unspecified Hyperlipidemia LDL goal < 130 Other and unspecified hyperlipidemia Carotid artery disease (HCC)- Primary Unspecified disorders of arteries and arterioles Rheumatoid arthritis(714.0) Rheumatoid arthritis Fibromyalgia Mylagia and myositis, unspecified Depression Depressive disorder, not elsewhere classified Asthma Unspecified asthma Hyperlipidemia LDL goal < 130 Other and unspecified hyperlipidemia GERD (gastroesophageal reflux disease) Esophageal reflux Anemia, unspecified- Primary History of peptic ulcer Personal history of peptic ulcer disease Rheumatoid arthritis involving multiple sites with positive rheumatoid factor (HCC)- Primary Anemia due to other cause Screening mammogram for high-risk patient Keratoconjunctivitis sicca, in Sjogren's syndrome (HCC) Sicca syndrome Recurrent major depression in partial remission (HCC) Major depressive disorder, recurrent episode, in partial or unspecified remission Bunion, right Bunion Recurrent major depression in partial remission (HCC)- Primary Major depressive disorder, recurrent episode, in partial or unspecified remission Rheumatoid arthritis involving multiple sites with positive rheumatoid factor (HCC) Left-sided carotid artery disease (HCC) Vitamin D deficiency Unspecified vitamin D deficiency Iron 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) Gastroesophageal reflux disease without esophagitis Esophageal reflux Morbid obesity, unspecified obesity type (HCC) Recurrent major depressive disorder, in partial remission (HCC) Hospital discharge follow-up- Primary Other follow-up examination Rheumatoid arthritis involving multiple sites with positive rheumatoid factor (HCC) Vitamin D deficiency Unspecified vitamin D deficiency Occlusion of left carotid artery Occlusion and stenosis of carotid artery without mention of cerebral infarction Recurrent major depressive disorder, in partial remission (HCC) Left-sided carotid artery disease (HCC) Encounter for screening mammogram for malignant neoplasm of breast Other screening mammogram Malaise and fatigue Other malaise and fatigue Iron deficiency Iron deficiency anemia, unspecified SOB (shortness of breath) Shortness of breath Anemia, unspecified type- Primary Rheumatoid arthritis involving multiple sites with positive rheumatoid factor (HCC) Need for vaccination Need for prophylactic vaccination and inoculation against unspecified single disease Fibromyalgia Mylagia and myositis, unspecified BPPV (benign paroxysmal positional vertigo), bilateral Osteoporosis Osteoporosis, unspecified Anemia, unspecified type- Primary 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, right Encounter for screening mammogram for high-risk patient Osteoporosis without current pathological fracture, unspecified osteoporosis type Mixed hyperlipidemia Morbid obesity, unspecified obesity type (HCC) SOB (shortness of breath) Shortness of breath Iron malabsorption Other specified intestinal malabsorption Pre-operative examination- Primary Preoperative examination, unspecified Acute medial meniscus tear of right knee, subsequent encounter Chronic diastolic CHF (congestive heart failure) (HCC) Chronic diastolic heart failure Essential hypertension Unspecified essential hypertension Hyperlipidemia with target LDL less than 130 Other and unspecified hyperlipidemia PVC's (premature ventricular contractions) Other premature beats TY (dyspnea on exertion) Other dyspnea and respiratory abnormality Stenosis of carotid artery, unspecified laterality Fibromyalgia Mylagia and myositis, unspecified Insomnia, unspecified type Chronic obstructive pulmonary disease, unspecified COPD type (HCC) GERD without esophagitis Esophageal reflux Iron deficiency anemia, unspecified iron deficiency anemia type Rheumatoid arthritis involving multiple sites, unspecified rheumatoid factor presence Other osteoporosis with current pathological fracture with malunion, subsequent encounter Mild episode of recurrent major depressive disorder (HCC) Iron deficiency anemia, unspecified iron deficiency anemia type- Primary [facility] Establishing care with new doctor, encounter for- Primary Other reasons for seeking consultation Breast screening, unspecified Rheumatoid arthritis Fibromyalgia Mylagia and myositis, unspecified Depression Depressive disorder, not elsewhere classified Asthma Unspecified asthma Routine health maintenance Routine general medical examination at a health care facility Abdominal pain Abdominal pain, unspecified site Mycoplasma pneumonia- Primary Pneumonia due to Mycoplasma pneumoniae Asthma Unspecified asthma Abdominal pain Abdominal pain, unspecified site Rheumatoid arthritis(714.0) Rheumatoid arthritis Fibromyalgia Mylagia and myositis, unspecified Rheumatoid arthritis(714.0)- Primary Rheumatoid arthritis Carotid artery disease (HCC) Unspecified disorders of arteries and arterioles Mycoplasma pneumonia Pneumonia due to Mycoplasma pneumoniae Fibromyalgia- Primary Mylagia and myositis, unspecified Need for prophylactic vaccination and inoculation against influenza Hyperlipidemia LDL goal < 130 Other and unspecified hyperlipidemia Asthma Unspecified asthma Depression Depressive disorder, not elsewhere classified Fracture of triquetrum of left wrist, closed Closed fracture of triquetral (cuneiform) bone of wrist Rheumatoid arthritis(714.0) Rheumatoid arthritis Routine health maintenance Routine general medical examination at a health care facility Routine adult health maintenance Routine general medical examination at a health care facility Carotid artery disease (HCC)- Primary Unspecified disorders of arteries and arterioles Depression Depressive disorder, not elsewhere classified Fibromyalgia Mylagia and myositis, unspecified Asthma Unspecified asthma Rheumatoid arthritis(714.0) Rheumatoid arthritis Insomnia Insomnia, unspecified Hyperlipidemia LDL goal < 130 Other and unspecified hyperlipidemia Carotid artery disease (HCC)- Primary Unspecified disorders of arteries and arterioles Rheumatoid arthritis(714.0) Rheumatoid arthritis Fibromyalgia Mylagia and myositis, unspecified Depression Depressive disorder, not elsewhere classified Asthma Unspecified asthma Hyperlipidemia LDL goal < 130 Other and unspecified hyperlipidemia GERD (gastroesophageal reflux disease) Esophageal reflux Anemia, unspecified- Primary History of peptic ulcer Personal history of peptic ulcer disease Rheumatoid arthritis involving multiple sites with positive rheumatoid factor (HCC)- Primary Anemia due to other cause Screening mammogram for high-risk patient Keratoconjunctivitis sicca, in Sjogren's syndrome (HCC) Sicca syndrome Recurrent major depression in partial remission (HCC) Major depressive disorder, recurrent episode, in partial or unspecified remission Bunion, right Bunion Recurrent major depression in partial remission (HCC)- Primary Major depressive disorder, recurrent episode, in partial or unspecified remission Rheumatoid arthritis involving multiple sites with positive rheumatoid factor (HCC) Left-sided carotid artery disease (HCC) Vitamin D deficiency Unspecified vitamin D deficiency Iron 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) Gastroesophageal reflux disease without esophagitis Esophageal reflux Morbid obesity, unspecified obesity type (HCC) Recurrent major depressive disorder, in partial remission (HCC) Hospital discharge follow-up- Primary Other follow-up examination Rheumatoid arthritis involving multiple sites with positive rheumatoid factor (HCC) Vitamin D deficiency Unspecified vitamin D deficiency Occlusion of left carotid artery Occlusion and stenosis of carotid artery without mention of cerebral infarction Recurrent major depressive disorder, in partial remission (HCC) Left-sided carotid artery disease (HCC) Encounter for screening mammogram for malignant neoplasm of breast Other screening mammogram Malaise and fatigue Other malaise and fatigue Iron deficiency Iron deficiency anemia, unspecified SOB (shortness of breath) Shortness of breath Anemia, unspecified type- Primary Rheumatoid arthritis involving multiple sites with positive rheumatoid factor (HCC) Need for vaccination Need for prophylactic vaccination and inoculation against unspecified single disease Fibromyalgia Mylagia and myositis, unspecified BPPV (benign paroxysmal positional vertigo), bilateral Osteoporosis Osteoporosis, unspecified Anemia, unspecified type- Primary 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, right Encounter for screening mammogram for high-risk patient Osteoporosis without current pathological fracture, unspecified osteoporosis type Mixed hyperlipidemia Morbid obesity, unspecified obesity type (HCC) SOB (shortness of breath) Shortness of breath Iron malabsorption Other specified intestinal malabsorption Pre-operative examination- Primary Preoperative examination, unspecified Acute medial meniscus tear of right knee, subsequent encounter Chronic diastolic CHF (congestive heart failure) (HCC) Chronic diastolic heart failure Essential hypertension Unspecified essential hypertension Hyperlipidemia with target LDL less than 130 Other and unspecified hyperlipidemia PVC's (premature ventricular contractions) Other premature beats TY (dyspnea on exertion) Other dyspnea and respiratory abnormality Stenosis of carotid artery, unspecified laterality Fibromyalgia Mylagia and myositis, unspecified Insomnia, unspecified type Chronic obstructive pulmonary disease, unspecified COPD type (HCC) GERD without esophagitis Esophageal reflux Iron deficiency anemia, unspecified iron deficiency anemia type Rheumatoid arthritis involving multiple sites, unspecified rheumatoid factor presence Other osteoporosis with current pathological fracture with malunion, subsequent encounter Mild episode of recurrent major depressive disorder (HCC) Iron deficiency anemia, unspecified iron deficiency anemia type- Primary [facility] Establishing care with new doctor, encounter for- Primary Other reasons for seeking consultation Breast screening, unspecified Rheumatoid arthritis Fibromyalgia Mylagia and myositis, unspecified Depression Depressive disorder, not elsewhere classified Asthma Unspecified asthma Routine health maintenance Routine general medical examination at a health care facility Abdominal pain Abdominal pain, unspecified site Mycoplasma pneumonia- Primary Pneumonia due to Mycoplasma pneumoniae Asthma Unspecified asthma Abdominal pain Abdominal pain, unspecified site Rheumatoid arthritis(714.0) Rheumatoid arthritis Fibromyalgia Mylagia and myositis, unspecified Rheumatoid arthritis(714.0)- Primary Rheumatoid arthritis Carotid artery disease (HCC) Unspecified disorders of arteries and arterioles Mycoplasma pneumonia Pneumonia due to Mycoplasma pneumoniae Fibromyalgia- Primary Mylagia and myositis, unspecified Need for prophylactic vaccination and inoculation against influenza Hyperlipidemia LDL goal < 130 Other and unspecified hyperlipidemia Asthma Unspecified asthma Depression Depressive disorder, not elsewhere classified Fracture of triquetrum of left wrist, closed Closed fracture of triquetral (cuneiform) bone of wrist Rheumatoid arthritis(714.0) Rheumatoid arthritis Routine health maintenance Routine general medical examination at a health care facility Routine adult health maintenance Routine general medical examination at a health care facility Carotid artery disease (HCC)- Primary Unspecified disorders of arteries and arterioles Depression Depressive disorder, not elsewhere classified Fibromyalgia Mylagia and myositis, unspecified Asthma Unspecified asthma Rheumatoid arthritis(714.0) Rheumatoid arthritis Insomnia Insomnia, unspecified Hyperlipidemia LDL goal < 130 Other and unspecified hyperlipidemia Carotid artery disease (HCC)- Primary Unspecified disorders of arteries and arterioles Rheumatoid arthritis(714.0) Rheumatoid arthritis Fibromyalgia Mylagia and myositis, unspecified Depression Depressive disorder, not elsewhere classified Asthma Unspecified asthma Hyperlipidemia LDL goal < 130 Other and unspecified hyperlipidemia GERD (gastroesophageal reflux disease) Esophageal reflux Anemia, unspecified- Primary History of peptic ulcer Personal history of peptic ulcer disease Rheumatoid arthritis involving multiple sites with positive rheumatoid factor (HCC)- Primary Anemia due to other cause Screening mammogram for high-risk patient Keratoconjunctivitis sicca, in Sjogren's syndrome (HCC) Sicca syndrome Recurrent major depression in partial remission (HCC) Major depressive disorder, recurrent episode, in partial or unspecified remission Bunion, right Bunion Recurrent major depression in partial remission (HCC)- Primary Major depressive disorder, recurrent episode, in partial or unspecified remission Rheumatoid arthritis involving multiple sites with positive rheumatoid factor (HCC) Left-sided carotid artery disease (HCC) Vitamin D deficiency Unspecified vitamin D deficiency Iron 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) Gastroesophageal reflux disease without esophagitis Esophageal reflux Morbid obesity, unspecified obesity type (HCC) Recurrent major depressive disorder, in partial remission (HCC) Hospital discharge follow-up- Primary Other follow-up examination Rheumatoid arthritis involving multiple sites with positive rheumatoid factor (HCC) Vitamin D deficiency Unspecified vitamin D deficiency Occlusion of left carotid artery Occlusion and stenosis of carotid artery without mention of cerebral infarction Recurrent major depressive disorder, in partial remission (HCC) Left-sided carotid artery disease (HCC) Encounter for screening mammogram for malignant neoplasm of breast Other screening mammogram Malaise and fatigue Other malaise and fatigue Iron deficiency Iron deficiency anemia, unspecified SOB (shortness of breath) Shortness of breath Anemia, unspecified type- Primary Rheumatoid arthritis involving multiple sites with positive rheumatoid factor (HCC) Need for vaccination Need for prophylactic vaccination and inoculation against unspecified single disease Fibromyalgia Mylagia and myositis, unspecified BPPV (benign paroxysmal positional vertigo), bilateral Osteoporosis Osteoporosis, unspecified Anemia, unspecified type- Primary 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, right Encounter for screening mammogram for high-risk patient Osteoporosis without current pathological fracture, unspecified osteoporosis type Mixed hyperlipidemia Morbid obesity, unspecified obesity type (HCC) SOB (shortness of breath) Shortness of breath Iron malabsorption Other specified intestinal malabsorption Pre-operative examination- Primary Preoperative examination, unspecified Acute medial meniscus tear of right knee, subsequent encounter Chronic diastolic CHF (congestive heart failure) (HCC) Chronic diastolic heart failure Essential hypertension Unspecified essential hypertension Hyperlipidemia with target LDL less than 130 Other and unspecified hyperlipidemia PVC's (premature ventricular contractions) Other premature beats TY (dyspnea on exertion) Other dyspnea and respiratory abnormality Stenosis of carotid artery, unspecified laterality Fibromyalgia Mylagia and myositis, unspecified Insomnia, unspecified type Chronic obstructive pulmonary disease, unspecified COPD type (HCC) GERD without esophagitis Esophageal reflux Iron deficiency anemia, unspecified iron deficiency anemia type Rheumatoid arthritis involving multiple sites, unspecified rheumatoid factor presence Other osteoporosis with current pathological fracture with malunion, subsequent encounter Mild episode of recurrent major depressive disorder (HCC) High risk medication use Encounter for long-term (current) use of other medications Rheumatoid arthritis involving multiple sites with positive rheumatoid factor (HCC) Localized osteoporosis without current pathological fracture [facility] Establishing care with new doctor, encounter for- Primary Other reasons for seeking consultation Breast screening, unspecified Rheumatoid arthritis Fibromyalgia Mylagia and myositis, unspecified Depression Depressive disorder, not elsewhere classified Asthma Unspecified asthma Routine health maintenance Routine general medical examination at a health care facility Abdominal pain Abdominal pain, unspecified site Mycoplasma pneumonia- Primary Pneumonia due to Mycoplasma pneumoniae Asthma Unspecified asthma Abdominal pain Abdominal pain, unspecified site Rheumatoid arthritis(714.0) Rheumatoid arthritis Fibromyalgia Mylagia and myositis, unspecified Rheumatoid arthritis(714.0)- Primary Rheumatoid arthritis Carotid artery disease (HCC) Unspecified disorders of arteries and arterioles Mycoplasma pneumonia Pneumonia due to Mycoplasma pneumoniae Fibromyalgia- Primary Mylagia and myositis, unspecified Need for prophylactic vaccination and inoculation against influenza Hyperlipidemia LDL goal < 130 Other and unspecified hyperlipidemia Asthma Unspecified asthma Depression Depressive disorder, not elsewhere classified Fracture of triquetrum of left wrist, closed Closed fracture of triquetral (cuneiform) bone of wrist Rheumatoid arthritis(714.0) Rheumatoid arthritis Routine health maintenance Routine general medical examination at a health care facility Routine adult health maintenance Routine general medical examination at a health care facility Carotid artery disease (HCC)- Primary Unspecified disorders of arteries and arterioles Depression Depressive disorder, not elsewhere classified Fibromyalgia Mylagia and myositis, unspecified Asthma Unspecified asthma Rheumatoid arthritis(714.0) Rheumatoid arthritis Insomnia Insomnia, unspecified Hyperlipidemia LDL goal < 130 Other and unspecified hyperlipidemia Carotid artery disease (HCC)- Primary Unspecified disorders of arteries and arterioles Rheumatoid arthritis(714.0) Rheumatoid arthritis Fibromyalgia Mylagia and myositis, unspecified Depression Depressive disorder, not elsewhere classified Asthma Unspecified asthma Hyperlipidemia LDL goal < 130 Other and unspecified hyperlipidemia GERD (gastroesophageal reflux disease) Esophageal reflux Anemia, unspecified- Primary History of peptic ulcer Personal history of peptic ulcer disease Rheumatoid arthritis involving multiple sites with positive rheumatoid factor (HCC)- Primary Anemia due to other cause Screening mammogram for high-risk patient Keratoconjunctivitis sicca, in Sjogren's syndrome (HCC) Sicca syndrome Recurrent major depression in partial remission (HCC) Major depressive disorder, recurrent episode, in partial or unspecified remission Bunion, right Bunion Recurrent major depression in partial remission (HCC)- Primary Major depressive disorder, recurrent episode, in partial or unspecified remission Rheumatoid arthritis involving multiple sites with positive rheumatoid factor (HCC) Left-sided carotid artery disease (HCC) Vitamin D deficiency Unspecified vitamin D deficiency Iron 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) Gastroesophageal reflux disease without esophagitis Esophageal reflux Morbid obesity, unspecified obesity type (HCC) Recurrent major depressive disorder, in partial remission (HCC) Hospital discharge follow-up- Primary Other follow-up examination Rheumatoid arthritis involving multiple sites with positive rheumatoid factor (HCC) Vitamin D deficiency Unspecified vitamin D deficiency Occlusion of left carotid artery Occlusion and stenosis of carotid artery without mention of cerebral infarction Recurrent major depressive disorder, in partial remission (HCC) Left-sided carotid artery disease (HCC) Encounter for screening mammogram for malignant neoplasm of breast Other screening mammogram Malaise and fatigue Other malaise and fatigue Iron deficiency Iron deficiency anemia, unspecified SOB (shortness of breath) Shortness of breath Anemia, unspecified type- Primary Rheumatoid arthritis involving multiple sites with positive rheumatoid factor (HCC) Need for vaccination Need for prophylactic vaccination and inoculation against unspecified single disease Fibromyalgia Mylagia and myositis, unspecified BPPV (benign paroxysmal positional vertigo), bilateral Osteoporosis Osteoporosis, unspecified Anemia, unspecified type- Primary 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, right Encounter for screening mammogram for high-risk patient Osteoporosis without current pathological fracture, unspecified osteoporosis type Mixed hyperlipidemia Morbid obesity, unspecified obesity type (HCC) SOB (shortness of breath) Shortness of breath Iron malabsorption Other specified intestinal malabsorption Pre-operative examination- Primary Preoperative examination, unspecified Acute medial meniscus tear of right knee, subsequent encounter Chronic diastolic CHF (congestive heart failure) (HCC) Chronic diastolic heart failure Essential hypertension Unspecified essential hypertension Hyperlipidemia with target LDL less than 130 Other and unspecified hyperlipidemia PVC's (premature ventricular contractions) Other premature beats TY (dyspnea on exertion) Other dyspnea and respiratory abnormality Stenosis of carotid artery, unspecified laterality Fibromyalgia Mylagia and myositis, unspecified Insomnia, unspecified type Chronic obstructive pulmonary disease, unspecified COPD type (HCC) GERD without esophagitis Esophageal reflux Iron deficiency anemia, unspecified iron deficiency anemia type Rheumatoid arthritis involving multiple sites, unspecified rheumatoid factor presence Other osteoporosis with current pathological fracture with malunion, subsequent encounter Mild episode of recurrent major depressive disorder (HCC) Rheumatoid arthritis involving multiple sites with positive rheumatoid factor (HCC)- Primary Iron 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) Iron malabsorption Other specified intestinal malabsorption [facility] Establishing care with new doctor, encounter for- Primary Other reasons for seeking consultation Breast screening, unspecified Rheumatoid arthritis Fibromyalgia Mylagia and myositis, unspecified Depression Depressive disorder, not elsewhere classified Asthma Unspecified asthma Routine health maintenance Routine general medical examination at a health care facility Abdominal pain Abdominal pain, unspecified site Mycoplasma pneumonia- Primary Pneumonia due to Mycoplasma pneumoniae Asthma Unspecified asthma Abdominal pain Abdominal pain, unspecified site Rheumatoid arthritis(714.0) Rheumatoid arthritis Fibromyalgia Mylagia and myositis, unspecified Rheumatoid arthritis(714.0)- Primary Rheumatoid arthritis Carotid artery disease (HCC) Unspecified disorders of arteries and arterioles Mycoplasma pneumonia Pneumonia due to Mycoplasma pneumoniae Fibromyalgia- Primary Mylagia and myositis, unspecified Need for prophylactic vaccination and inoculation against influenza Hyperlipidemia LDL goal < 130 Other and unspecified hyperlipidemia Asthma Unspecified asthma Depression Depressive disorder, not elsewhere classified Fracture of triquetrum of left wrist, closed Closed fracture of triquetral (cuneiform) bone of wrist Rheumatoid arthritis(714.0) Rheumatoid arthritis Routine health maintenance Routine general medical examination at a health care facility Routine adult health maintenance Routine general medical examination at a health care facility Carotid artery disease (HCC)- Primary Unspecified disorders of arteries and arterioles Depression Depressive disorder, not elsewhere classified Fibromyalgia Mylagia and myositis, unspecified Asthma Unspecified asthma Rheumatoid arthritis(714.0) Rheumatoid arthritis Insomnia Insomnia, unspecified Hyperlipidemia LDL goal < 130 Other and unspecified hyperlipidemia Carotid artery disease (HCC)- Primary Unspecified disorders of arteries and arterioles Rheumatoid arthritis(714.0) Rheumatoid arthritis Fibromyalgia Mylagia and myositis, unspecified Depression Depressive disorder, not elsewhere classified Asthma Unspecified asthma Hyperlipidemia LDL goal < 130 Other and unspecified hyperlipidemia GERD (gastroesophageal reflux disease) Esophageal reflux Anemia, unspecified- Primary History of peptic ulcer Personal history of peptic ulcer disease Rheumatoid arthritis involving multiple sites with positive rheumatoid factor (HCC)- Primary Anemia due to other cause Screening mammogram for high-risk patient Keratoconjunctivitis sicca, in Sjogren's syndrome (HCC) Sicca syndrome Recurrent major depression in partial remission (HCC) Major depressive disorder, recurrent episode, in partial or unspecified remission Bunion, right Bunion Recurrent major depression in partial remission (HCC)- Primary Major depressive disorder, recurrent episode, in partial or unspecified remission Rheumatoid arthritis involving multiple sites with positive rheumatoid factor (HCC) Left-sided carotid artery disease (HCC) Vitamin D deficiency Unspecified vitamin D deficiency Iron 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) Gastroesophageal reflux disease without esophagitis Esophageal reflux Morbid obesity, unspecified obesity type (HCC) Recurrent major depressive disorder, in partial remission (HCC) Hospital discharge follow-up- Primary Other follow-up examination Rheumatoid arthritis involving multiple sites with positive rheumatoid factor (HCC) Vitamin D deficiency Unspecified vitamin D deficiency Occlusion of left carotid artery Occlusion and stenosis of carotid artery without mention of cerebral infarction Recurrent major depressive disorder, in partial remission (HCC) Left-sided carotid artery disease (HCC) Encounter for screening mammogram for malignant neoplasm of breast Other screening mammogram Malaise and fatigue Other malaise and fatigue Iron deficiency Iron deficiency anemia, unspecified SOB (shortness of breath) Shortness of breath Anemia, unspecified type- Primary Rheumatoid arthritis involving multiple sites with positive rheumatoid factor (HCC) Need for vaccination Need for prophylactic vaccination and inoculation against unspecified single disease Fibromyalgia Mylagia and myositis, unspecified BPPV (benign paroxysmal positional vertigo), bilateral Osteoporosis Osteoporosis, unspecified Anemia, unspecified type- Primary 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, right Encounter for screening mammogram for high-risk patient Osteoporosis without current pathological fracture, unspecified osteoporosis type Mixed hyperlipidemia Morbid obesity, unspecified obesity type (HCC) SOB (shortness of breath) Shortness of breath Iron malabsorption Other specified intestinal malabsorption Pre-operative examination- Primary Preoperative examination, unspecified Acute medial meniscus tear of right knee, subsequent encounter Chronic diastolic CHF (congestive heart failure) (HCC) Chronic diastolic heart failure Essential hypertension Unspecified essential hypertension Hyperlipidemia with target LDL less than 130 Other and unspecified hyperlipidemia PVC's (premature ventricular contractions) Other premature beats TY (dyspnea on exertion) Other dyspnea and respiratory abnormality Stenosis of carotid artery, unspecified laterality Fibromyalgia Mylagia and myositis, unspecified Insomnia, unspecified type Chronic obstructive pulmonary disease, unspecified COPD type (HCC) GERD without esophagitis Esophageal reflux Iron deficiency anemia, unspecified iron deficiency anemia type Rheumatoid arthritis involving multiple sites, unspecified rheumatoid factor presence Other osteoporosis with current pathological fracture with malunion, subsequent encounter Mild episode of recurrent major depressive disorder (HCC) Iron 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 blood loss- Primary Iron deficiency anemia secondary to blood loss (chronic) Iron malabsorption Other specified intestinal malabsorption [facility] with new doctor, encounter for- Primary Other reasons for seeking consultation Breast screening, unspecified Rheumatoid arthritis Fibromyalgia Mylagia and myositis, unspecified Depression Depressive disorder, not elsewhere classified Asthma Unspecified asthma Routine health maintenance Routine general medical examination at a health care facility Abdominal pain Abdominal pain, unspecified site Mycoplasma pneumonia- Primary Pneumonia due to Mycoplasma pneumoniae Asthma Unspecified asthma Abdominal pain Abdominal pain, unspecified site Rheumatoid arthritis(714.0) Rheumatoid arthritis Fibromyalgia Mylagia and myositis, unspecified Rheumatoid arthritis(714.0)- Primary Rheumatoid arthritis Carotid artery disease (HCC) Unspecified disorders of arteries and arterioles Mycoplasma pneumonia Pneumonia due to Mycoplasma pneumoniae Fibromyalgia- Primary Mylagia and myositis, unspecified Need for prophylactic vaccination and inoculation against influenza Hyperlipidemia LDL goal < 130 Other and unspecified hyperlipidemia Asthma Unspecified asthma Depression Depressive disorder, not elsewhere classified Fracture of triquetrum of left wrist, closed Closed fracture of triquetral (cuneiform) bone of wrist Rheumatoid arthritis(714.0) Rheumatoid arthritis Routine health maintenance Routine general medical examination at a health care facility Routine adult health maintenance Routine general medical examination at a health care facility Carotid artery disease (HCC)- Primary Unspecified disorders of arteries and arterioles Depression Depressive disorder, not elsewhere classified Fibromyalgia Mylagia and myositis, unspecified Asthma Unspecified asthma Rheumatoid arthritis(714.0) Rheumatoid arthritis Insomnia Insomnia, unspecified Hyperlipidemia LDL goal < 130 Other and unspecified hyperlipidemia Carotid artery disease (HCC)- Primary Unspecified disorders of arteries and arterioles Rheumatoid arthritis(714.0) Rheumatoid arthritis Fibromyalgia Mylagia and myositis, unspecified Depression Depressive disorder, not elsewhere classified Asthma Unspecified asthma Hyperlipidemia LDL goal < 130 Other and unspecified hyperlipidemia GERD (gastroesophageal reflux disease) Esophageal reflux Anemia, unspecified- Primary History of peptic ulcer Personal history of peptic ulcer disease Rheumatoid arthritis involving multiple sites with positive rheumatoid factor (HCC)- Primary Anemia due to other cause Screening mammogram for high-risk patient Keratoconjunctivitis sicca, in Sjogren's syndrome (HCC) Sicca syndrome Recurrent major depression in partial remission (HCC) Major depressive disorder, recurrent episode, in partial or unspecified remission Bunion, right Bunion Recurrent major depression in partial remission (HCC)- Primary Major depressive disorder, recurrent episode, in partial or unspecified remission Rheumatoid arthritis involving multiple sites with positive rheumatoid factor (HCC) Left-sided carotid artery disease (HCC) Vitamin D deficiency Unspecified vitamin D deficiency Iron 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) Gastroesophageal reflux disease without esophagitis Esophageal reflux Morbid obesity, unspecified obesity type (HCC) Recurrent major depressive disorder, in partial remission (HCC) Hospital discharge follow-up- Primary Other follow-up examination Rheumatoid arthritis involving multiple sites with positive rheumatoid factor (HCC) Vitamin D deficiency Unspecified vitamin D deficiency Occlusion of left carotid artery Occlusion and stenosis of carotid artery without mention of cerebral infarction Recurrent major depressive disorder, in partial remission (HCC) Left-sided carotid artery disease (HCC) Encounter for screening mammogram for malignant neoplasm of breast Other screening mammogram Malaise and fatigue Other malaise and fatigue Iron deficiency Iron deficiency anemia, unspecified SOB (shortness of breath) Shortness of breath Anemia, unspecified type- Primary Rheumatoid arthritis involving multiple sites with positive rheumatoid factor (HCC) Need for vaccination Need for prophylactic vaccination and inoculation against unspecified single disease Fibromyalgia Mylagia and myositis, unspecified BPPV (benign paroxysmal positional vertigo), bilateral Osteoporosis Osteoporosis, unspecified Anemia, unspecified type- Primary 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, right Encounter for screening mammogram for high-risk patient Osteoporosis without current pathological fracture, unspecified osteoporosis type Mixed hyperlipidemia Morbid obesity, unspecified obesity type (HCC) SOB (shortness of breath) Shortness of breath Iron malabsorption Other specified intestinal malabsorption Pre-operative examination- Primary Preoperative examination, unspecified Acute medial meniscus tear of right knee, subsequent encounter Chronic diastolic CHF (congestive heart failure) (HCC) Chronic diastolic heart failure Essential hypertension Unspecified essential hypertension Hyperlipidemia with target LDL less than 130 Other and unspecified hyperlipidemia PVC's (premature ventricular contractions) Other premature beats TY (dyspnea on exertion) Other dyspnea and respiratory abnormality Stenosis of carotid artery, unspecified laterality Fibromyalgia Mylagia and myositis, unspecified Insomnia, unspecified type Chronic obstructive pulmonary disease, unspecified COPD type (HCC) GERD without esophagitis Esophageal reflux Iron deficiency anemia, unspecified iron deficiency anemia type Rheumatoid arthritis involving multiple sites, unspecified rheumatoid factor presence Other osteoporosis with current pathological fracture with malunion, subsequent encounter Mild episode of recurrent major depressive disorder (HCC) Iron 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 blood loss- Primary Iron deficiency anemia secondary to blood loss (chronic) Iron malabsorption Other specified intestinal malabsorption [facility] Establishing care with new doctor, encounter for- Primary Other reasons for seeking consultation Breast screening, unspecified Rheumatoid arthritis Fibromyalgia Mylagia and myositis, unspecified Depression Depressive disorder, not elsewhere classified Asthma Unspecified asthma Routine health maintenance Routine general medical examination at a health care facility Abdominal pain Abdominal pain, unspecified site Mycoplasma pneumonia- Primary Pneumonia due to Mycoplasma pneumoniae Asthma Unspecified asthma Abdominal pain Abdominal pain, unspecified site Rheumatoid arthritis(714.0) Rheumatoid arthritis Fibromyalgia Mylagia and myositis, unspecified Rheumatoid arthritis(714.0)- Primary Rheumatoid arthritis Carotid artery disease (HCC) Unspecified disorders of arteries and arterioles Mycoplasma pneumonia Pneumonia due to Mycoplasma pneumoniae Fibromyalgia- Primary Mylagia and myositis, unspecified Need for prophylactic vaccination and inoculation against influenza Hyperlipidemia LDL goal < 130 Other and unspecified hyperlipidemia Asthma Unspecified asthma Depression Depressive disorder, not elsewhere classified Fracture of triquetrum of left wrist, closed Closed fracture of triquetral (cuneiform) bone of wrist Rheumatoid arthritis(714.0) Rheumatoid arthritis Routine health maintenance Routine general medical examination at a health care facility Routine adult health maintenance Routine general medical examination at a health care facility Carotid artery disease (HCC)- Primary Unspecified disorders of arteries and arterioles Depression Depressive disorder, not elsewhere classified Fibromyalgia Mylagia and myositis, unspecified Asthma Unspecified asthma Rheumatoid arthritis(714.0) Rheumatoid arthritis Insomnia Insomnia, unspecified Hyperlipidemia LDL goal < 130 Other and unspecified hyperlipidemia Carotid artery disease (HCC)- Primary Unspecified disorders of arteries and arterioles Rheumatoid arthritis(714.0) Rheumatoid arthritis Fibromyalgia Mylagia and myositis, unspecified Depression Depressive disorder, not elsewhere classified Asthma Unspecified asthma Hyperlipidemia LDL goal < 130 Other and unspecified hyperlipidemia GERD (gastroesophageal reflux disease) Esophageal reflux Anemia, unspecified- Primary History of peptic ulcer Personal history of peptic ulcer disease Rheumatoid arthritis involving multiple sites with positive rheumatoid factor (HCC)- Primary Anemia due to other cause Screening mammogram for high-risk patient Keratoconjunctivitis sicca, in Sjogren's syndrome (HCC) Sicca syndrome Recurrent major depression in partial remission (HCC) Major depressive disorder, recurrent episode, in partial or unspecified remission Bunion, right Bunion Recurrent major depression in partial remission (HCC)- Primary Major depressive disorder, recurrent episode, in partial or unspecified remission Rheumatoid arthritis involving multiple sites with positive rheumatoid factor (HCC) Left-sided carotid artery disease (HCC) Vitamin D deficiency Unspecified vitamin D deficiency Iron 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) Gastroesophageal reflux disease without esophagitis Esophageal reflux Morbid obesity, unspecified obesity type (HCC) Recurrent major depressive disorder, in partial remission (HCC) Hospital discharge follow-up- Primary Other follow-up examination Rheumatoid arthritis involving multiple sites with positive rheumatoid factor (HCC) Vitamin D deficiency Unspecified vitamin D deficiency Occlusion of left carotid artery Occlusion and stenosis of carotid artery without mention of cerebral infarction Recurrent major depressive disorder, in partial remission (HCC) Left-sided carotid artery disease (HCC) Encounter for screening mammogram for malignant neoplasm of breast Other screening mammogram Malaise and fatigue Other malaise and fatigue Iron deficiency Iron deficiency anemia, unspecified SOB (shortness of breath) Shortness of breath Anemia, unspecified type- Primary Rheumatoid arthritis involving multiple sites with positive rheumatoid factor (HCC) Need for vaccination Need for prophylactic vaccination and inoculation against unspecified single disease Fibromyalgia Mylagia and myositis, unspecified BPPV (benign paroxysmal positional vertigo), bilateral Osteoporosis Osteoporosis, unspecified Anemia, unspecified type- Primary 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, right Encounter for screening mammogram for high-risk patient Osteoporosis without current pathological fracture, unspecified osteoporosis type Mixed hyperlipidemia Morbid obesity, unspecified obesity type (HCC) SOB (shortness of breath) Shortness of breath Iron malabsorption Other specified intestinal malabsorption Pre-operative examination- Primary Preoperative examination, unspecified Acute medial meniscus tear of right knee, subsequent encounter Chronic diastolic CHF (congestive heart failure) (HCC) Chronic diastolic heart failure Essential hypertension Unspecified essential hypertension Hyperlipidemia with target LDL less than 130 Other and unspecified hyperlipidemia PVC's (premature ventricular contractions) Other premature beats TY (dyspnea on exertion) Other dyspnea and respiratory abnormality Stenosis of carotid artery, unspecified laterality Fibromyalgia Mylagia and myositis, unspecified Insomnia, unspecified type Chronic obstructive pulmonary disease, unspecified COPD type (HCC) GERD without esophagitis Esophageal reflux Iron deficiency anemia, unspecified iron deficiency anemia type Rheumatoid arthritis involving multiple sites, unspecified rheumatoid factor presence Other osteoporosis with current pathological fracture with malunion, subsequent encounter Mild episode of recurrent major depressive disorder (HCC) Osteoporosis, unspecified osteoporosis type, unspecified pathological fracture [facility]ishing [facility] with new doctor, encounter for- Primary Other reasons for seeking consultation Breast screening, unspecified Rheumatoid arthritis Fibromyalgia Mylagia and myositis, unspecified Depression Depressive disorder, not elsewhere classified Asthma Unspecified asthma Routine health maintenance Routine general medical examination at a health care facility Abdominal pain Abdominal pain, unspecified site Mycoplasma pneumonia- Primary Pneumonia due to Mycoplasma pneumoniae Asthma Unspecified asthma Abdominal pain Abdominal pain, unspecified site Rheumatoid arthritis(714.0) Rheumatoid arthritis Fibromyalgia Mylagia and myositis, unspecified Rheumatoid arthritis(714.0)- Primary Rheumatoid arthritis Carotid artery disease (HCC) Unspecified disorders of arteries and arterioles Mycoplasma pneumonia Pneumonia due to Mycoplasma pneumoniae Fibromyalgia- Primary Mylagia and myositis, unspecified Need for prophylactic vaccination and inoculation against influenza Hyperlipidemia LDL goal < 130 Other and unspecified hyperlipidemia Asthma Unspecified asthma Depression Depressive disorder, not elsewhere classified Fracture of triquetrum of left wrist, closed Closed fracture of triquetral (cuneiform) bone of wrist Rheumatoid arthritis(714.0) Rheumatoid arthritis Routine health maintenance Routine general medical examination at a health care facility Routine adult health maintenance Routine general medical examination at a health care facility Carotid artery disease (HCC)- Primary Unspecified disorders of arteries and arterioles Depression Depressive disorder, not elsewhere classified Fibromyalgia Mylagia and myositis, unspecified Asthma Unspecified asthma Rheumatoid arthritis(714.0) Rheumatoid arthritis Insomnia Insomnia, unspecified Hyperlipidemia LDL goal < 130 Other and unspecified hyperlipidemia Carotid artery disease (HCC)- Primary Unspecified disorders of arteries and arterioles Rheumatoid arthritis(714.0) Rheumatoid arthritis Fibromyalgia Mylagia and myositis, unspecified Depression Depressive disorder, not elsewhere classified Asthma Unspecified asthma Hyperlipidemia LDL goal < 130 Other and unspecified hyperlipidemia GERD (gastroesophageal reflux disease) Esophageal reflux Anemia, unspecified- Primary History of peptic ulcer Personal history of peptic ulcer disease Rheumatoid arthritis involving multiple sites with positive rheumatoid factor (HCC)- Primary Anemia due to other cause Screening mammogram for high-risk patient Keratoconjunctivitis sicca, in Sjogren's syndrome (HCC) Sicca syndrome Recurrent major depression in partial remission (HCC) Major depressive disorder, recurrent episode, in partial or unspecified remission Bunion, right Bunion Recurrent major depression in partial remission (HCC)- Primary Major depressive disorder, recurrent episode, in partial or unspecified remission Rheumatoid arthritis involving multiple sites with positive rheumatoid factor (HCC) Left-sided carotid artery disease (HCC) Vitamin D deficiency Unspecified vitamin D deficiency Iron 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) Gastroesophageal reflux disease without esophagitis Esophageal reflux Morbid obesity, unspecified obesity type (HCC) Recurrent major depressive disorder, in partial remission (HCC) Hospital discharge follow-up- Primary Other follow-up examination Rheumatoid arthritis involving multiple sites with positive rheumatoid factor (HCC) Vitamin D deficiency Unspecified vitamin D deficiency Occlusion of left carotid artery Occlusion and stenosis of carotid artery without mention of cerebral infarction Recurrent major depressive disorder, in partial remission (HCC) Left-sided carotid artery disease (HCC) Encounter for screening mammogram for malignant neoplasm of breast Other screening mammogram Malaise and fatigue Other malaise and fatigue Iron deficiency Iron deficiency anemia, unspecified SOB (shortness of breath) Shortness of breath Anemia, unspecified type- Primary Rheumatoid arthritis involving multiple sites with positive rheumatoid factor (HCC) Need for vaccination Need for prophylactic vaccination and inoculation against unspecified single disease Fibromyalgia Mylagia and myositis, unspecified BPPV (benign paroxysmal positional vertigo), bilateral Osteoporosis Osteoporosis, unspecified Anemia, unspecified type- Primary 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, right Encounter for screening mammogram for high-risk patient Osteoporosis without current pathological fracture, unspecified osteoporosis type Mixed hyperlipidemia Morbid obesity, unspecified obesity type (HCC) SOB (shortness of breath) Shortness of breath Iron malabsorption Other specified intestinal malabsorption Pre-operative examination- Primary Preoperative examination, unspecified Acute medial meniscus tear of right knee, subsequent encounter Chronic diastolic CHF (congestive heart failure) (HCC) Chronic diastolic heart failure Essential hypertension Unspecified essential hypertension Hyperlipidemia with target LDL less than 130 Other and unspecified hyperlipidemia PVC's (premature ventricular contractions) Other premature beats TY (dyspnea on exertion) Other dyspnea and respiratory abnormality Stenosis of carotid artery, unspecified laterality Fibromyalgia Mylagia and myositis, unspecified Insomnia, unspecified type Chronic obstructive pulmonary disease, unspecified COPD type (HCC) GERD without esophagitis Esophageal reflux Iron deficiency anemia, unspecified iron deficiency anemia type Rheumatoid arthritis involving multiple sites, unspecified rheumatoid factor presence Other osteoporosis with current pathological fracture with malunion, subsequent encounter Mild episode of recurrent major depressive disorder (HCC) Rectal pain- Primary Anal or rectal pain [facility] Establishing care with new doctor, encounter for- Primary Other reasons for seeking consultation Breast screening, unspecified Rheumatoid arthritis Fibromyalgia Mylagia and myositis, unspecified Depression Depressive disorder, not elsewhere classified Asthma Unspecified asthma Routine health maintenance Routine general medical examination at a health care facility Abdominal pain Abdominal pain, unspecified site Mycoplasma pneumonia- Primary Pneumonia due to Mycoplasma pneumoniae Asthma Unspecified asthma Abdominal pain Abdominal pain, unspecified site Rheumatoid arthritis(714.0) Rheumatoid arthritis Fibromyalgia Mylagia and myositis, unspecified Rheumatoid arthritis(714.0)- Primary Rheumatoid arthritis Carotid artery disease (HCC) Unspecified disorders of arteries and arterioles Mycoplasma pneumonia Pneumonia due to Mycoplasma pneumoniae Fibromyalgia- Primary Mylagia and myositis, unspecified Need for prophylactic vaccination and inoculation against influenza Hyperlipidemia LDL goal < 130 Other and unspecified hyperlipidemia Asthma Unspecified asthma Depression Depressive disorder, not elsewhere classified Fracture of triquetrum of left wrist, closed Closed fracture of triquetral (cuneiform) bone of wrist Rheumatoid arthritis(714.0) Rheumatoid arthritis Routine health maintenance Routine general medical examination at a health care facility Routine adult health maintenance Routine general medical examination at a health care facility Carotid artery disease (HCC)- Primary Unspecified disorders of arteries and arterioles Depression Depressive disorder, not elsewhere classified Fibromyalgia Mylagia and myositis, unspecified Asthma Unspecified asthma Rheumatoid arthritis(714.0) Rheumatoid arthritis Insomnia Insomnia, unspecified Hyperlipidemia LDL goal < 130 Other and unspecified hyperlipidemia Carotid artery disease (HCC)- Primary Unspecified disorders of arteries and arterioles Rheumatoid arthritis(714.0) Rheumatoid arthritis Fibromyalgia Mylagia and myositis, unspecified Depression Depressive disorder, not elsewhere classified Asthma Unspecified asthma Hyperlipidemia LDL goal < 130 Other and unspecified hyperlipidemia GERD (gastroesophageal reflux disease) Esophageal reflux Anemia, unspecified- Primary History of peptic ulcer Personal history of peptic ulcer disease Rheumatoid arthritis involving multiple sites with positive rheumatoid factor (HCC)- Primary Anemia due to other cause Screening mammogram for high-risk patient Keratoconjunctivitis sicca, in Sjogren's syndrome (HCC) Sicca syndrome Recurrent major depression in partial remission (HCC) Major depressive disorder, recurrent episode, in partial or unspecified remission Bunion, right Bunion Recurrent major depression in partial remission (HCC)- Primary Major depressive disorder, recurrent episode, in partial or unspecified remission Rheumatoid arthritis involving multiple sites with positive rheumatoid factor (HCC) Left-sided carotid artery disease (HCC) Vitamin D deficiency Unspecified vitamin D deficiency Iron 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) Gastroesophageal reflux disease without esophagitis Esophageal reflux Morbid obesity, unspecified obesity type (HCC) Recurrent major depressive disorder, in partial remission (HCC) Hospital discharge follow-up- Primary Other follow-up examination Rheumatoid arthritis involving multiple sites with positive rheumatoid factor (HCC) Vitamin D deficiency Unspecified vitamin D deficiency Occlusion of left carotid artery Occlusion and stenosis of carotid artery without mention of cerebral infarction Recurrent major depressive disorder, in partial remission (HCC) Left-sided carotid artery disease (HCC) Encounter for screening mammogram for malignant neoplasm of breast Other screening mammogram Malaise and fatigue Other malaise and fatigue Iron deficiency Iron deficiency anemia, unspecified SOB (shortness of breath) Shortness of breath Anemia, unspecified type- Primary Rheumatoid arthritis involving multiple sites with positive rheumatoid factor (HCC) Need for vaccination Need for prophylactic vaccination and inoculation against unspecified single disease Fibromyalgia Mylagia and myositis, unspecified BPPV (benign paroxysmal positional vertigo), bilateral Osteoporosis Osteoporosis, unspecified Anemia, unspecified type- Primary 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, right Encounter for screening mammogram for high-risk patient Osteoporosis without current pathological fracture, unspecified osteoporosis type Mixed hyperlipidemia Morbid obesity, unspecified obesity type (HCC) SOB (shortness of breath) Shortness of breath Iron malabsorption Other specified intestinal malabsorption Pre-operative examination- Primary Preoperative examination, unspecified Acute medial meniscus tear of right knee, subsequent encounter Chronic diastolic CHF (congestive heart failure) (HCC) Chronic diastolic heart failure Essential hypertension Unspecified essential hypertension Hyperlipidemia with target LDL less than 130 Other and unspecified hyperlipidemia PVC's (premature ventricular contractions) Other premature beats TY (dyspnea on exertion) Other dyspnea and respiratory abnormality Stenosis of carotid artery, unspecified laterality Fibromyalgia Mylagia and myositis, unspecified Insomnia, unspecified type Chronic obstructive pulmonary disease, unspecified COPD type (HCC) GERD without esophagitis Esophageal reflux Iron deficiency anemia, unspecified iron deficiency anemia type Rheumatoid arthritis involving multiple sites, unspecified rheumatoid factor presence Other osteoporosis with current pathological fracture with malunion, subsequent encounter Mild episode of recurrent major depressive disorder (HCC) High risk medication use Encounter for long-term (current) use of other medications Rheumatoid arthritis involving multiple sites with positive rheumatoid factor (HCC) Localized osteoporosis without current pathological fracture [facility] Establishing care with new doctor, encounter for- Primary Other reasons for seeking consultation Breast screening, unspecified Rheumatoid arthritis Fibromyalgia Mylagia and myositis, unspecified Depression Depressive disorder, not elsewhere classified Asthma Unspecified asthma Routine health maintenance Routine general medical examination at a health care facility Abdominal pain Abdominal pain, unspecified site Mycoplasma pneumonia- Primary Pneumonia due to Mycoplasma pneumoniae Asthma Unspecified asthma Abdominal pain Abdominal pain, unspecified site Rheumatoid arthritis(714.0) Rheumatoid arthritis Fibromyalgia Mylagia and myositis, unspecified Rheumatoid arthritis(714.0)- Primary Rheumatoid arthritis Carotid artery disease (HCC) Unspecified disorders of arteries and arterioles Mycoplasma pneumonia Pneumonia due to Mycoplasma pneumoniae Fibromyalgia- Primary Mylagia and myositis, unspecified Need for prophylactic vaccination and inoculation against influenza Hyperlipidemia LDL goal < 130 Other and unspecified hyperlipidemia Asthma Unspecified asthma Depression Depressive disorder, not elsewhere classified Fracture of triquetrum of left wrist, closed Closed fracture of triquetral (cuneiform) bone of wrist Rheumatoid arthritis(714.0) Rheumatoid arthritis Routine health maintenance Routine general medical examination at a health care facility Routine adult health maintenance Routine general medical examination at a health care facility Carotid artery disease (HCC)- Primary Unspecified disorders of arteries and arterioles Depression Depressive disorder, not elsewhere classified Fibromyalgia Mylagia and myositis, unspecified Asthma Unspecified asthma Rheumatoid arthritis(714.0) Rheumatoid arthritis Insomnia Insomnia, unspecified Hyperlipidemia LDL goal < 130 Other and unspecified hyperlipidemia Carotid artery disease (HCC)- Primary Unspecified disorders of arteries and arterioles Rheumatoid arthritis(714.0) Rheumatoid arthritis Fibromyalgia Mylagia and myositis, unspecified Depression Depressive disorder, not elsewhere classified Asthma Unspecified asthma Hyperlipidemia LDL goal < 130 Other and unspecified hyperlipidemia GERD (gastroesophageal reflux disease) Esophageal reflux Anemia, unspecified- Primary History of peptic ulcer Personal history of peptic ulcer disease Rheumatoid arthritis involving multiple sites with positive rheumatoid factor (HCC)- Primary Anemia due to other cause Screening mammogram for high-risk patient Keratoconjunctivitis sicca, in Sjogren's syndrome (HCC) Sicca syndrome Recurrent major depression in partial remission (HCC) Major depressive disorder, recurrent episode, in partial or unspecified remission Bunion, right Bunion Recurrent major depression in partial remission (HCC)- Primary Major depressive disorder, recurrent episode, in partial or unspecified remission Rheumatoid arthritis involving multiple sites with positive rheumatoid factor (HCC) Left-sided carotid artery disease (HCC) Vitamin D deficiency Unspecified vitamin D deficiency Iron 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) Gastroesophageal reflux disease without esophagitis Esophageal reflux Morbid obesity, unspecified obesity type (HCC) Recurrent major depressive disorder, in partial remission (HCC) Hospital discharge follow-up- Primary Other follow-up examination Rheumatoid arthritis involving multiple sites with positive rheumatoid factor (HCC) Vitamin D deficiency Unspecified vitamin D deficiency Occlusion of left carotid artery Occlusion and stenosis of carotid artery without mention of cerebral infarction Recurrent major depressive disorder, in partial remission (HCC) Left-sided carotid artery disease (HCC) Encounter for screening mammogram for malignant neoplasm of breast Other screening mammogram Malaise and fatigue Other malaise and fatigue Iron deficiency Iron deficiency anemia, unspecified SOB (shortness of breath) Shortness of breath Anemia, unspecified type- Primary Rheumatoid arthritis involving multiple sites with positive rheumatoid factor (HCC) Need for vaccination Need for prophylactic vaccination and inoculation against unspecified single disease Fibromyalgia Mylagia and myositis, unspecified BPPV (benign paroxysmal positional vertigo), bilateral Osteoporosis Osteoporosis, unspecified Anemia, unspecified type- Primary 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, right Encounter for screening mammogram for high-risk patient Osteoporosis without current pathological fracture, unspecified osteoporosis type Mixed hyperlipidemia Morbid obesity, unspecified obesity type (HCC) SOB (shortness of breath) Shortness of breath Iron malabsorption Other specified intestinal malabsorption Pre-operative examination- Primary Preoperative examination, unspecified Acute medial meniscus tear of right knee, subsequent encounter Chronic diastolic CHF (congestive heart failure) (HCC) Chronic diastolic heart failure Essential hypertension Unspecified essential hypertension Hyperlipidemia with target LDL less than 130 Other and unspecified hyperlipidemia PVC's (premature ventricular contractions) Other premature beats TY (dyspnea on exertion) Other dyspnea and respiratory abnormality Stenosis of carotid artery, unspecified laterality Fibromyalgia Mylagia and myositis, unspecified Insomnia, unspecified type Chronic obstructive pulmonary disease, unspecified COPD type (HCC) GERD without esophagitis Esophageal reflux Iron deficiency anemia, unspecified iron deficiency anemia type Rheumatoid arthritis involving multiple sites, unspecified rheumatoid factor presence Other osteoporosis with current pathological fracture with malunion, subsequent encounter Mild episode of recurrent major depressive disorder (HCC) Anal cancer (HCC)- Primary Malignant neoplasm of anus, unspecified site Right leg pain Pain in limb Iron 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) [facility] Establishing care with new doctor, encounter for- Primary Other reasons for seeking consultation Breast screening, unspecified Rheumatoid arthritis Fibromyalgia Mylagia and myositis, unspecified Depression Depressive disorder, not elsewhere classified Asthma Unspecified asthma Routine health maintenance Routine general medical examination at a health care facility Abdominal pain Abdominal pain, unspecified site Mycoplasma pneumonia- Primary Pneumonia due to Mycoplasma pneumoniae Asthma Unspecified asthma Abdominal pain Abdominal pain, unspecified site Rheumatoid arthritis(714.0) Rheumatoid arthritis Fibromyalgia Mylagia and myositis, unspecified Rheumatoid arthritis(714.0)- Primary Rheumatoid arthritis Carotid artery disease (HCC) Unspecified disorders of arteries and arterioles Mycoplasma pneumonia Pneumonia due to Mycoplasma pneumoniae Fibromyalgia- Primary Mylagia and myositis, unspecified Need for prophylactic vaccination and inoculation against influenza Hyperlipidemia LDL goal < 130 Other and unspecified hyperlipidemia Asthma Unspecified asthma Depression Depressive disorder, not elsewhere classified Fracture of triquetrum of left wrist, closed Closed fracture of triquetral (cuneiform) bone of wrist Rheumatoid arthritis(714.0) Rheumatoid arthritis Routine health maintenance Routine general medical examination at a health care facility Routine adult health maintenance Routine general medical examination at a health care facility Carotid artery disease (HCC)- Primary Unspecified disorders of arteries and arterioles Depression Depressive disorder, not elsewhere classified Fibromyalgia Mylagia and myositis, unspecified Asthma Unspecified asthma Rheumatoid arthritis(714.0) Rheumatoid arthritis Insomnia Insomnia, unspecified Hyperlipidemia LDL goal < 130 Other and unspecified hyperlipidemia Carotid artery disease (HCC)- Primary Unspecified disorders of arteries and arterioles Rheumatoid arthritis(714.0) Rheumatoid arthritis Fibromyalgia Mylagia and myositis, unspecified Depression Depressive disorder, not elsewhere classified Asthma Unspecified asthma Hyperlipidemia LDL goal < 130 Other and unspecified hyperlipidemia GERD (gastroesophageal reflux disease) Esophageal reflux Anemia, unspecified- Primary History of peptic ulcer Personal history of peptic ulcer disease Rheumatoid arthritis involving multiple sites with positive rheumatoid factor (HCC)- Primary Anemia due to other cause Screening mammogram for high-risk patient Keratoconjunctivitis sicca, in Sjogren's syndrome (HCC) Sicca syndrome Recurrent major depression in partial remission (HCC) Major depressive disorder, recurrent episode, in partial or unspecified remission Bunion, right Bunion Recurrent major depression in partial remission (HCC)- Primary Major depressive disorder, recurrent episode, in partial or unspecified remission Rheumatoid arthritis involving multiple sites with positive rheumatoid factor (HCC) Left-sided carotid artery disease (HCC) Vitamin D deficiency Unspecified vitamin D deficiency Iron 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) Gastroesophageal reflux disease without esophagitis Esophageal reflux Morbid obesity, unspecified obesity type (HCC) Recurrent major depressive disorder, in partial remission (HCC) Hospital discharge follow-up- Primary Other follow-up examination Rheumatoid arthritis involving multiple sites with positive rheumatoid factor (HCC) Vitamin D deficiency Unspecified vitamin D deficiency Occlusion of left carotid artery Occlusion and stenosis of carotid artery without mention of cerebral infarction Recurrent major depressive disorder, in partial remission (HCC) Left-sided carotid artery disease (HCC) Encounter for screening mammogram for malignant neoplasm of breast Other screening mammogram Malaise and fatigue Other malaise and fatigue Iron deficiency Iron deficiency anemia, unspecified SOB (shortness of breath) Shortness of breath Anemia, unspecified type- Primary Rheumatoid arthritis involving multiple sites with positive rheumatoid factor (HCC) Need for vaccination Need for prophylactic vaccination and inoculation against unspecified single disease Fibromyalgia Mylagia and myositis, unspecified BPPV (benign paroxysmal positional vertigo), bilateral Osteoporosis Osteoporosis, unspecified Anemia, unspecified type- Primary 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, right Encounter for screening mammogram for high-risk patient Osteoporosis without current pathological fracture, unspecified osteoporosis type Mixed hyperlipidemia Morbid obesity, unspecified obesity type (HCC) SOB (shortness of breath) Shortness of breath Iron malabsorption Other specified intestinal malabsorption Pre-operative examination- Primary Preoperative examination, unspecified Acute medial meniscus tear of right knee, subsequent encounter Chronic diastolic CHF (congestive heart failure) (HCC) Chronic diastolic heart failure Essential hypertension Unspecified essential hypertension Hyperlipidemia with target LDL less than 130 Other and unspecified hyperlipidemia PVC's (premature ventricular contractions) Other premature beats TY (dyspnea on exertion) Other dyspnea and respiratory abnormality Stenosis of carotid artery, unspecified laterality Fibromyalgia Mylagia and myositis, unspecified Insomnia, unspecified type Chronic obstructive pulmonary disease, unspecified COPD type (HCC) GERD without esophagitis Esophageal reflux Iron deficiency anemia, unspecified iron deficiency anemia type Rheumatoid arthritis involving multiple sites, unspecified rheumatoid factor presence Other osteoporosis with current pathological fracture with malunion, subsequent encounter Mild episode of recurrent major depressive disorder (HCC) Anal cancer (HCC)- Primary Malignant neoplasm of anus, unspecified site [facility] Establishing care with new doctor, encounter for- Primary Other reasons for seeking consultation Breast screening, unspecified Rheumatoid arthritis Fibromyalgia Mylagia and myositis, unspecified Depression Depressive disorder, not elsewhere classified Asthma Unspecified asthma Routine health maintenance Routine general medical examination at a health care facility Abdominal pain Abdominal pain, unspecified site Mycoplasma pneumonia- Primary Pneumonia due to Mycoplasma pneumoniae Asthma Unspecified asthma Abdominal pain Abdominal pain, unspecified site Rheumatoid arthritis(714.0) Rheumatoid arthritis Fibromyalgia Mylagia and myositis, unspecified Rheumatoid arthritis(714.0)- Primary Rheumatoid arthritis Carotid artery disease (HCC) Unspecified disorders of arteries and arterioles Mycoplasma pneumonia Pneumonia due to Mycoplasma pneumoniae Fibromyalgia- Primary Mylagia and myositis, unspecified Need for prophylactic vaccination and inoculation against influenza Hyperlipidemia LDL goal < 130 Other and unspecified hyperlipidemia Asthma Unspecified asthma Depression Depressive disorder, not elsewhere classified Fracture of triquetrum of left wrist, closed Closed fracture of triquetral (cuneiform) bone of wrist Rheumatoid arthritis(714.0) Rheumatoid arthritis Routine health maintenance Routine general medical examination at a health care facility Routine adult health maintenance Routine general medical examination at a health care facility Carotid artery disease (HCC)- Primary Unspecified disorders of arteries and arterioles Depression Depressive disorder, not elsewhere classified Fibromyalgia Mylagia and myositis, unspecified Asthma Unspecified asthma Rheumatoid arthritis(714.0) Rheumatoid arthritis Insomnia Insomnia, unspecified Hyperlipidemia LDL goal < 130 Other and unspecified hyperlipidemia Carotid artery disease (HCC)- Primary Unspecified disorders of arteries and arterioles Rheumatoid arthritis(714.0) Rheumatoid arthritis Fibromyalgia Mylagia and myositis, unspecified Depression Depressive disorder, not elsewhere classified Asthma Unspecified asthma Hyperlipidemia LDL goal < 130 Other and unspecified hyperlipidemia GERD (gastroesophageal reflux disease) Esophageal reflux Anemia, unspecified- Primary History of peptic ulcer Personal history of peptic ulcer disease Rheumatoid arthritis involving multiple sites with positive rheumatoid factor (HCC)- Primary Anemia due to other cause Screening mammogram for high-risk patient Keratoconjunctivitis sicca, in Sjogren's syndrome (HCC) Sicca syndrome Recurrent major depression in partial remission (HCC) Major depressive disorder, recurrent episode, in partial or unspecified remission Bunion, right Bunion Recurrent major depression in partial remission (HCC)- Primary Major depressive disorder, recurrent episode, in partial or unspecified remission Rheumatoid arthritis involving multiple sites with positive rheumatoid factor (HCC) Left-sided carotid artery disease (HCC) Vitamin D deficiency Unspecified vitamin D deficiency Iron 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) Gastroesophageal reflux disease without esophagitis Esophageal reflux Morbid obesity, unspecified obesity type (HCC) Recurrent major depressive disorder, in partial remission (HCC) Hospital discharge follow-up- Primary Other follow-up examination Rheumatoid arthritis involving multiple sites with positive rheumatoid factor (HCC) Vitamin D deficiency Unspecified vitamin D deficiency Occlusion of left carotid artery Occlusion and stenosis of carotid artery without mention of cerebral infarction Recurrent major depressive disorder, in partial remission (HCC) Left-sided carotid artery disease (HCC) Encounter for screening mammogram for malignant neoplasm of breast Other screening mammogram Malaise and fatigue Other malaise and fatigue Iron deficiency Iron deficiency anemia, unspecified SOB (shortness of breath) Shortness of breath Anemia, unspecified type- Primary Rheumatoid arthritis involving multiple sites with positive rheumatoid factor (HCC) Need for vaccination Need for prophylactic vaccination and inoculation against unspecified single disease Fibromyalgia Mylagia and myositis, unspecified BPPV (benign paroxysmal positional vertigo), bilateral Osteoporosis Osteoporosis, unspecified Anemia, unspecified type- Primary 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, right Encounter for screening mammogram for high-risk patient Osteoporosis without current pathological fracture, unspecified osteoporosis type Mixed hyperlipidemia Morbid obesity, unspecified obesity type (HCC) SOB (shortness of breath) Shortness of breath Iron malabsorption Other specified intestinal malabsorption Pre-operative examination- Primary Preoperative examination, unspecified Acute medial meniscus tear of right knee, subsequent encounter Chronic diastolic CHF (congestive heart failure) (HCC) Chronic diastolic heart failure Essential hypertension Unspecified essential hypertension Hyperlipidemia with target LDL less than 130 Other and unspecified hyperlipidemia PVC's (premature ventricular contractions) Other premature beats TY (dyspnea on exertion) Other dyspnea and respiratory abnormality Stenosis of carotid artery, unspecified laterality Fibromyalgia Mylagia and myositis, unspecified Insomnia, unspecified type Chronic obstructive pulmonary disease, unspecified COPD type (HCC) GERD without esophagitis Esophageal reflux Iron deficiency anemia, unspecified iron deficiency anemia type Rheumatoid arthritis involving multiple sites, unspecified rheumatoid factor presence Other osteoporosis with current pathological fracture with malunion, subsequent encounter Mild episode of recurrent major depressive disorder (HCC) Rheumatoid arthritis involving multiple sites with positive rheumatoid factor (HCC) Vitamin D deficiency Unspecified vitamin D deficiency [facility] Establishing care with new doctor, encounter for- Primary Other reasons for seeking consultation Breast screening, unspecified Rheumatoid arthritis Fibromyalgia Mylagia and myositis, unspecified Depression Depressive disorder, not elsewhere classified Asthma Unspecified asthma Routine health maintenance Routine general medical examination at a health care facility Abdominal pain Abdominal pain, unspecified site Mycoplasma pneumonia- Primary Pneumonia due to Mycoplasma pneumoniae Asthma Unspecified asthma Abdominal pain Abdominal pain, unspecified site Rheumatoid arthritis(714.0) Rheumatoid arthritis Fibromyalgia Mylagia and myositis, unspecified Rheumatoid arthritis(714.0)- Primary Rheumatoid arthritis Carotid artery disease (HCC) Unspecified disorders of arteries and arterioles Mycoplasma pneumonia Pneumonia due to Mycoplasma pneumoniae Fibromyalgia- Primary Mylagia and myositis, unspecified Need for prophylactic vaccination and inoculation against influenza Hyperlipidemia LDL goal < 130 Other and unspecified hyperlipidemia Asthma Unspecified asthma Depression Depressive disorder, not elsewhere classified Fracture of triquetrum of left wrist, closed Closed fracture of triquetral (cuneiform) bone of wrist Rheumatoid arthritis(714.0) Rheumatoid arthritis Routine health maintenance Routine general medical examination at a health care facility Routine adult health maintenance Routine general medical examination at a health care facility Carotid artery disease (HCC)- Primary Unspecified disorders of arteries and arterioles Depression Depressive disorder, not elsewhere classified Fibromyalgia Mylagia and myositis, unspecified Asthma Unspecified asthma Rheumatoid arthritis(714.0) Rheumatoid arthritis Insomnia Insomnia, unspecified Hyperlipidemia LDL goal < 130 Other and unspecified hyperlipidemia Carotid artery disease (HCC)- Primary Unspecified disorders of arteries and arterioles Rheumatoid arthritis(714.0) Rheumatoid arthritis Fibromyalgia Mylagia and myositis, unspecified Depression Depressive disorder, not elsewhere classified Asthma Unspecified asthma Hyperlipidemia LDL goal < 130 Other and unspecified hyperlipidemia GERD (gastroesophageal reflux disease) Esophageal reflux Anemia, unspecified- Primary History of peptic ulcer Personal history of peptic ulcer disease Rheumatoid arthritis involving multiple sites with positive rheumatoid factor (HCC)- Primary Anemia due to other cause Screening mammogram for high-risk patient Keratoconjunctivitis sicca, in Sjogren's syndrome (HCC) Sicca syndrome Recurrent major depression in partial remission (HCC) Major depressive disorder, recurrent episode, in partial or unspecified remission Bunion, right Bunion Recurrent major depression in partial remission (HCC)- Primary Major depressive disorder, recurrent episode, in partial or unspecified remission Rheumatoid arthritis involving multiple sites with positive rheumatoid factor (HCC) Left-sided carotid artery disease (HCC) Vitamin D deficiency Unspecified vitamin D deficiency Iron 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) Gastroesophageal reflux disease without esophagitis Esophageal reflux Morbid obesity, unspecified obesity type (HCC) Recurrent major depressive disorder, in partial remission (HCC) Hospital discharge follow-up- Primary Other follow-up examination Rheumatoid arthritis involving multiple sites with positive rheumatoid factor (HCC) Vitamin D deficiency Unspecified vitamin D deficiency Occlusion of left carotid artery Occlusion and stenosis of carotid artery without mention of cerebral infarction Recurrent major depressive disorder, in partial remission (HCC) Left-sided carotid artery disease (HCC) Encounter for screening mammogram for malignant neoplasm of breast Other screening mammogram Malaise and fatigue Other malaise and fatigue Iron deficiency Iron deficiency anemia, unspecified SOB (shortness of breath) Shortness of breath Anemia, unspecified type- Primary Rheumatoid arthritis involving multiple sites with positive rheumatoid factor (HCC) Need for vaccination Need for prophylactic vaccination and inoculation against unspecified single disease Fibromyalgia Mylagia and myositis, unspecified BPPV (benign paroxysmal positional vertigo), bilateral Osteoporosis Osteoporosis, unspecified Anemia, unspecified type- Primary 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, right Encounter for screening mammogram for high-risk patient Osteoporosis without current pathological fracture, unspecified osteoporosis type Mixed hyperlipidemia Morbid obesity, unspecified obesity type (HCC) SOB (shortness of breath) Shortness of breath Iron malabsorption Other specified intestinal malabsorption Pre-operative examination- Primary Preoperative examination, unspecified Acute medial meniscus tear of right knee, subsequent encounter Chronic diastolic CHF (congestive heart failure) (HCC) Chronic diastolic heart failure Essential hypertension Unspecified essential hypertension Hyperlipidemia with target LDL less than 130 Other and unspecified hyperlipidemia PVC's (premature ventricular contractions) Other premature beats TY (dyspnea on exertion) Other dyspnea and respiratory abnormality Stenosis of carotid artery, unspecified laterality Fibromyalgia Mylagia and myositis, unspecified Insomnia, unspecified type Chronic obstructive pulmonary disease, unspecified COPD type (HCC) GERD without esophagitis Esophageal reflux Iron deficiency anemia, unspecified iron deficiency anemia type Rheumatoid arthritis involving multiple sites, unspecified rheumatoid factor presence Other osteoporosis with current pathological fracture with malunion, subsequent encounter Mild episode of recurrent major depressive disorder (HCC) Anal cancer (HCC) Malignant neoplasm of anus, unspecified site [facility] Establishing care with new doctor, encounter for- Primary Other reasons for seeking consultation Breast screening, unspecified Rheumatoid arthritis Fibromyalgia Mylagia and myositis, unspecified Depression Depressive disorder, not elsewhere classified Asthma Unspecified asthma Routine health maintenance Routine general medical examination at a health care facility Abdominal pain Abdominal pain, unspecified site Mycoplasma pneumonia- Primary Pneumonia due to Mycoplasma pneumoniae Asthma Unspecified asthma Abdominal pain Abdominal pain, unspecified site Rheumatoid arthritis(714.0) Rheumatoid arthritis Fibromyalgia Mylagia and myositis, unspecified Rheumatoid arthritis(714.0)- Primary Rheumatoid arthritis Carotid artery disease (HCC) Unspecified disorders of arteries and arterioles Mycoplasma pneumonia Pneumonia due to Mycoplasma pneumoniae Fibromyalgia- Primary Mylagia and myositis, unspecified Need for prophylactic vaccination and inoculation against influenza Hyperlipidemia LDL goal < 130 Other and unspecified hyperlipidemia Asthma Unspecified asthma Depression Depressive disorder, not elsewhere classified Fracture of triquetrum of left wrist, closed Closed fracture of triquetral (cuneiform) bone of wrist Rheumatoid arthritis(714.0) Rheumatoid arthritis Routine health maintenance Routine general medical examination at a health care facility Routine adult health maintenance Routine general medical examination at a health care facility Carotid artery disease (HCC)- Primary Unspecified disorders of arteries and arterioles Depression Depressive disorder, not elsewhere classified Fibromyalgia Mylagia and myositis, unspecified Asthma Unspecified asthma Rheumatoid arthritis(714.0) Rheumatoid arthritis Insomnia Insomnia, unspecified Hyperlipidemia LDL goal < 130 Other and unspecified hyperlipidemia Carotid artery disease (HCC)- Primary Unspecified disorders of arteries and arterioles Rheumatoid arthritis(714.0) Rheumatoid arthritis Fibromyalgia Mylagia and myositis, unspecified Depression Depressive disorder, not elsewhere classified Asthma Unspecified asthma Hyperlipidemia LDL goal < 130 Other and unspecified hyperlipidemia GERD (gastroesophageal reflux disease) Esophageal reflux Anemia, unspecified- Primary History of peptic ulcer Personal history of peptic ulcer disease Rheumatoid arthritis involving multiple sites with positive rheumatoid factor (HCC)- Primary Anemia due to other cause Screening mammogram for high-risk patient Keratoconjunctivitis sicca, in Sjogren's syndrome (HCC) Sicca syndrome Recurrent major depression in partial remission (HCC) Major depressive disorder, recurrent episode, in partial or unspecified remission Bunion, right Bunion Recurrent major depression in partial remission (HCC)- Primary Major depressive disorder, recurrent episode, in partial or unspecified remission Rheumatoid arthritis involving multiple sites with positive rheumatoid factor (HCC) Left-sided carotid artery disease (HCC) Vitamin D deficiency Unspecified vitamin D deficiency Iron 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) Gastroesophageal reflux disease without esophagitis Esophageal reflux Morbid obesity, unspecified obesity type (HCC) Recurrent major depressive disorder, in partial remission (HCC) Hospital discharge follow-up- Primary Other follow-up examination Rheumatoid arthritis involving multiple sites with positive rheumatoid factor (HCC) Vitamin D deficiency Unspecified vitamin D deficiency Occlusion of left carotid artery Occlusion and stenosis of carotid artery without mention of cerebral infarction Recurrent major depressive disorder, in partial remission (HCC) Left-sided carotid artery disease (HCC) Encounter for screening mammogram for malignant neoplasm of breast Other screening mammogram Malaise and fatigue Other malaise and fatigue Iron deficiency Iron deficiency anemia, unspecified SOB (shortness of breath) Shortness of breath Anemia, unspecified type- Primary Rheumatoid arthritis involving multiple sites with positive rheumatoid factor (HCC) Need for vaccination Need for prophylactic vaccination and inoculation against unspecified single disease Fibromyalgia Mylagia and myositis, unspecified BPPV (benign paroxysmal positional vertigo), bilateral Osteoporosis Osteoporosis, unspecified Anemia, unspecified type- Primary 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, right Encounter for screening mammogram for high-risk patient Osteoporosis without current pathological fracture, unspecified osteoporosis type Mixed hyperlipidemia Morbid obesity, unspecified obesity type (HCC) SOB (shortness of breath) Shortness of breath Iron malabsorption Other specified intestinal malabsorption Pre-operative examination- Primary Preoperative examination, unspecified Acute medial meniscus tear of right knee, subsequent encounter Chronic diastolic CHF (congestive heart failure) (HCC) Chronic diastolic heart failure Essential hypertension Unspecified essential hypertension Hyperlipidemia with target LDL less than 130 Other and unspecified hyperlipidemia PVC's (premature ventricular contractions) Other premature beats TY (dyspnea on exertion) Other dyspnea and respiratory abnormality Stenosis of carotid artery, unspecified laterality Fibromyalgia Mylagia and myositis, unspecified Insomnia, unspecified type Chronic obstructive pulmonary disease, unspecified COPD type (HCC) GERD without esophagitis Esophageal reflux Iron deficiency anemia, unspecified iron deficiency anemia type Rheumatoid arthritis involving multiple sites, unspecified rheumatoid factor presence Other osteoporosis with current pathological fracture with malunion, subsequent encounter Mild episode of recurrent major depressive disorder (HCC) Anal cancer (HCC) Malignant neoplasm of anus, unspecified site [facility] Establishing care with new doctor, encounter for- Primary Other reasons for seeking consultation Breast screening, unspecified Rheumatoid arthritis Fibromyalgia Mylagia and myositis, unspecified Depression Depressive disorder, not elsewhere classified Asthma Unspecified asthma Routine health maintenance Routine general medical examination at a health care facility Abdominal pain Abdominal pain, unspecified site Mycoplasma pneumonia- Primary Pneumonia due to Mycoplasma pneumoniae Asthma Unspecified asthma Abdominal pain Abdominal pain, unspecified site Rheumatoid arthritis(714.0) Rheumatoid arthritis Fibromyalgia Mylagia and myositis, unspecified Rheumatoid arthritis(714.0)- Primary Rheumatoid arthritis Carotid artery disease (HCC) Unspecified disorders of arteries and arterioles Mycoplasma pneumonia Pneumonia due to Mycoplasma pneumoniae Fibromyalgia- Primary Mylagia and myositis, unspecified Need for prophylactic vaccination and inoculation against influenza Hyperlipidemia LDL goal < 130 Other and unspecified hyperlipidemia Asthma Unspecified asthma Depression Depressive disorder, not elsewhere classified Fracture of triquetrum of left wrist, closed Closed fracture of triquetral (cuneiform) bone of wrist Rheumatoid arthritis(714.0) Rheumatoid arthritis Routine health maintenance Routine general medical examination at a health care facility Routine adult health maintenance Routine general medical examination at a health care facility Carotid artery disease (HCC)- Primary Unspecified disorders of arteries and arterioles Depression Depressive disorder, not elsewhere classified Fibromyalgia Mylagia and myositis, unspecified Asthma Unspecified asthma Rheumatoid arthritis(714.0) Rheumatoid arthritis Insomnia Insomnia, unspecified Hyperlipidemia LDL goal < 130 Other and unspecified hyperlipidemia Carotid artery disease (HCC)- Primary Unspecified disorders of arteries and arterioles Rheumatoid arthritis(714.0) Rheumatoid arthritis Fibromyalgia Mylagia and myositis, unspecified Depression Depressive disorder, not elsewhere classified Asthma Unspecified asthma Hyperlipidemia LDL goal < 130 Other and unspecified hyperlipidemia GERD (gastroesophageal reflux disease) Esophageal reflux Anemia, unspecified- Primary History of peptic ulcer Personal history of peptic ulcer disease Rheumatoid arthritis involving multiple sites with positive rheumatoid factor (HCC)- Primary Anemia due to other cause Screening mammogram for high-risk patient Keratoconjunctivitis sicca, in Sjogren's syndrome (HCC) Sicca syndrome Recurrent major depression in partial remission (HCC) Major depressive disorder, recurrent episode, in partial or unspecified remission Bunion, right Bunion Recurrent major depression in partial remission (HCC)- Primary Major depressive disorder, recurrent episode, in partial or unspecified remission Rheumatoid arthritis involving multiple sites with positive rheumatoid factor (HCC) Left-sided carotid artery disease (HCC) Vitamin D deficiency Unspecified vitamin D deficiency Iron 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) Gastroesophageal reflux disease without esophagitis Esophageal reflux Morbid obesity, unspecified obesity type (HCC) Recurrent major depressive disorder, in partial remission (HCC) Hospital discharge follow-up- Primary Other follow-up examination Rheumatoid arthritis involving multiple sites with positive rheumatoid factor (HCC) Vitamin D deficiency Unspecified vitamin D deficiency Occlusion of left carotid artery Occlusion and stenosis of carotid artery without mention of cerebral infarction Recurrent major depressive disorder, in partial remission (HCC) Left-sided carotid artery disease (HCC) Encounter for screening mammogram for malignant neoplasm of breast Other screening mammogram Malaise and fatigue Other malaise and fatigue Iron deficiency Iron deficiency anemia, unspecified SOB (shortness of breath) Shortness of breath Anemia, unspecified type- Primary Rheumatoid arthritis involving multiple sites with positive rheumatoid factor (HCC) Need for vaccination Need for prophylactic vaccination and inoculation against unspecified single disease Fibromyalgia Mylagia and myositis, unspecified BPPV (benign paroxysmal positional vertigo), bilateral Osteoporosis Osteoporosis, unspecified Anemia, unspecified type- Primary 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, right Encounter for screening mammogram for high-risk patient Osteoporosis without current pathological fracture, unspecified osteoporosis type Mixed hyperlipidemia Morbid obesity, unspecified obesity type (HCC) SOB (shortness of breath) Shortness of breath Iron malabsorption Other specified intestinal malabsorption Pre-operative examination- Primary Preoperative examination, unspecified Acute medial meniscus tear of right knee, subsequent encounter Chronic diastolic CHF (congestive heart failure) (HCC) Chronic diastolic heart failure Essential hypertension Unspecified essential hypertension Hyperlipidemia with target LDL less than 130 Other and unspecified hyperlipidemia PVC's (premature ventricular contractions) Other premature beats TY (dyspnea on exertion) Other dyspnea and respiratory abnormality Stenosis of carotid artery, unspecified laterality Fibromyalgia Mylagia and myositis, unspecified Insomnia, unspecified type Chronic obstructive pulmonary disease, unspecified COPD type (HCC) GERD without esophagitis Esophageal reflux Iron deficiency anemia, unspecified iron deficiency anemia type Rheumatoid arthritis involving multiple sites, unspecified rheumatoid factor presence Other osteoporosis with current pathological fracture with malunion, subsequent encounter Mild episode of recurrent major depressive disorder (HCC) Anal cancer (HCC) Malignant neoplasm of anus, unspecified site [facility] Establishing care with new doctor, encounter for- Primary Other reasons for seeking consultation Breast screening, unspecified Rheumatoid arthritis Fibromyalgia Mylagia and myositis, unspecified Depression Depressive disorder, not elsewhere classified Asthma Unspecified asthma Routine health maintenance Routine general medical examination at a health care facility Abdominal pain Abdominal pain, unspecified site Mycoplasma pneumonia- Primary Pneumonia due to Mycoplasma pneumoniae Asthma Unspecified asthma Abdominal pain Abdominal pain, unspecified site Rheumatoid arthritis(714.0) Rheumatoid arthritis Fibromyalgia Mylagia and myositis, unspecified Rheumatoid arthritis(714.0)- Primary Rheumatoid arthritis Carotid artery disease (HCC) Unspecified disorders of arteries and arterioles Mycoplasma pneumonia Pneumonia due to Mycoplasma pneumoniae Fibromyalgia- Primary Mylagia and myositis, unspecified Need for prophylactic vaccination and inoculation against influenza Hyperlipidemia LDL goal < 130 Other and unspecified hyperlipidemia Asthma Unspecified asthma Depression Depressive disorder, not elsewhere classified Fracture of triquetrum of left wrist, closed Closed fracture of triquetral (cuneiform) bone of wrist Rheumatoid arthritis(714.0) Rheumatoid arthritis Routine health maintenance Routine general medical examination at a health care facility Routine adult health maintenance Routine general medical examination at a health care facility Carotid artery disease (HCC)- Primary Unspecified disorders of arteries and arterioles Depression Depressive disorder, not elsewhere classified Fibromyalgia Mylagia and myositis, unspecified Asthma Unspecified asthma Rheumatoid arthritis(714.0) Rheumatoid arthritis Insomnia Insomnia, unspecified Hyperlipidemia LDL goal < 130 Other and unspecified hyperlipidemia Carotid artery disease (HCC)- Primary Unspecified disorders of arteries and arterioles Rheumatoid arthritis(714.0) Rheumatoid arthritis Fibromyalgia Mylagia and myositis, unspecified Depression Depressive disorder, not elsewhere classified Asthma Unspecified asthma Hyperlipidemia LDL goal < 130 Other and unspecified hyperlipidemia GERD (gastroesophageal reflux disease) Esophageal reflux Anemia, unspecified- Primary History of peptic ulcer Personal history of peptic ulcer disease Rheumatoid arthritis involving multiple sites with positive rheumatoid factor (HCC)- Primary Anemia due to other cause Screening mammogram for high-risk patient Keratoconjunctivitis sicca, in Sjogren's syndrome (HCC) Sicca syndrome Recurrent major depression in partial remission (HCC) Major depressive disorder, recurrent episode, in partial or unspecified remission Bunion, right Bunion Recurrent major depression in partial remission (HCC)- Primary Major depressive disorder, recurrent episode, in partial or unspecified remission Rheumatoid arthritis involving multiple sites with positive rheumatoid factor (HCC) Left-sided carotid artery disease (HCC) Vitamin D deficiency Unspecified vitamin D deficiency Iron 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) Gastroesophageal reflux disease without esophagitis Esophageal reflux Morbid obesity, unspecified obesity type (HCC) Recurrent major depressive disorder, in partial remission (HCC) Hospital discharge follow-up- Primary Other follow-up examination Rheumatoid arthritis involving multiple sites with positive rheumatoid factor (HCC) Vitamin D deficiency Unspecified vitamin D deficiency Occlusion of left carotid artery Occlusion and stenosis of carotid artery without mention of cerebral infarction Recurrent major depressive disorder, in partial remission (HCC) Left-sided carotid artery disease (HCC) Encounter for screening mammogram for malignant neoplasm of breast Other screening mammogram Malaise and fatigue Other malaise and fatigue Iron deficiency Iron deficiency anemia, unspecified SOB (shortness of breath) Shortness of breath Anemia, unspecified type- Primary Rheumatoid arthritis involving multiple sites with positive rheumatoid factor (HCC) Need for vaccination Need for prophylactic vaccination and inoculation against unspecified single disease Fibromyalgia Mylagia and myositis, unspecified BPPV (benign paroxysmal positional vertigo), bilateral Osteoporosis Osteoporosis, unspecified Anemia, unspecified type- Primary 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, right Encounter for screening mammogram for high-risk patient Osteoporosis without current pathological fracture, unspecified osteoporosis type Mixed hyperlipidemia Morbid obesity, unspecified obesity type (HCC) SOB (shortness of breath) Shortness of breath Iron malabsorption Other specified intestinal malabsorption Pre-operative examination- Primary Preoperative examination, unspecified Acute medial meniscus tear of right knee, subsequent encounter Chronic diastolic CHF (congestive heart failure) (HCC) Chronic diastolic heart failure Essential hypertension Unspecified essential hypertension Hyperlipidemia with target LDL less than 130 Other and unspecified hyperlipidemia PVC's (premature ventricular contractions) Other premature beats TY (dyspnea on exertion) Other dyspnea and respiratory abnormality Stenosis of carotid artery, unspecified laterality Fibromyalgia Mylagia and myositis, unspecified Insomnia, unspecified type Chronic obstructive pulmonary disease, unspecified COPD type (HCC) GERD without esophagitis Esophageal reflux Iron deficiency anemia, unspecified iron deficiency anemia type Rheumatoid arthritis involving multiple sites, unspecified rheumatoid factor presence Other osteoporosis with current pathological fracture with malunion, subsequent encounter Mild episode of recurrent major depressive disorder (HCC) Urinary frequency- Primary Pain Generalized pain [facility] Diagnosis Establishing care with new doctor, encounter for- Primary Other reasons for seeking consultation Breast screening, unspecified Rheumatoid arthritis Fibromyalgia Mylagia and myositis, unspecified Depression Depressive disorder, not elsewhere classified Asthma Unspecified asthma Routine health maintenance Routine general medical examination at a health care facility Abdominal pain Abdominal pain, unspecified site Mycoplasma pneumonia- Primary Pneumonia due to Mycoplasma pneumoniae Asthma Unspecified asthma Abdominal pain Abdominal pain, unspecified site Rheumatoid arthritis(714.0) Rheumatoid arthritis Fibromyalgia Mylagia and myositis, unspecified Rheumatoid arthritis(714.0)- Primary Rheumatoid arthritis Carotid artery disease (HCC) Unspecified disorders of arteries and arterioles Mycoplasma pneumonia Pneumonia due to Mycoplasma pneumoniae Fibromyalgia- Primary Mylagia and myositis, unspecified Need for prophylactic vaccination and inoculation against influenza Hyperlipidemia LDL goal < 130 Other and unspecified hyperlipidemia Asthma Unspecified asthma Depression Depressive disorder, not elsewhere classified Fracture of triquetrum of left wrist, closed Closed fracture of triquetral (cuneiform) bone of wrist Rheumatoid arthritis(714.0) Rheumatoid arthritis Routine health maintenance Routine general medical examination at a health care facility Routine adult health maintenance Routine general medical examination at a health care facility Carotid artery disease (HCC)- Primary Unspecified disorders of arteries and arterioles Depression Depressive disorder, not elsewhere classified Fibromyalgia Mylagia and myositis, unspecified Asthma Unspecified asthma Rheumatoid arthritis(714.0) Rheumatoid arthritis Insomnia Insomnia, unspecified Hyperlipidemia LDL goal < 130 Other and unspecified hyperlipidemia Carotid artery disease (HCC)- Primary Unspecified disorders of arteries and arterioles Rheumatoid arthritis(714.0) Rheumatoid arthritis Fibromyalgia Mylagia and myositis, unspecified Depression Depressive disorder, not elsewhere classified Asthma Unspecified asthma Hyperlipidemia LDL goal < 130 Other and unspecified hyperlipidemia GERD (gastroesophageal reflux disease) Esophageal reflux Anemia, unspecified- Primary History of peptic ulcer Personal history of peptic ulcer disease Rheumatoid arthritis involving multiple sites with positive rheumatoid factor (HCC)- Primary Anemia due to other cause Screening mammogram for high-risk patient Keratoconjunctivitis sicca, in Sjogren's syndrome (HCC) Sicca syndrome Recurrent major depression in partial remission (HCC) Major depressive disorder, recurrent episode, in partial or unspecified remission Bunion, right Bunion Recurrent major depression in partial remission (HCC)- Primary Major depressive disorder, recurrent episode, in partial or unspecified remission Rheumatoid arthritis involving multiple sites with positive rheumatoid factor (HCC) Left-sided carotid artery disease (HCC) Vitamin D deficiency Unspecified vitamin D deficiency Iron 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) Gastroesophageal reflux disease without esophagitis Esophageal reflux Morbid obesity, unspecified obesity type (HCC) Recurrent major depressive disorder, in partial remission (HCC) Hospital discharge follow-up- Primary Other follow-up examination Rheumatoid arthritis involving multiple sites with positive rheumatoid factor (HCC) Vitamin D deficiency Unspecified vitamin D deficiency Occlusion of left carotid artery Occlusion and stenosis of carotid artery without mention of cerebral infarction Recurrent major depressive disorder, in partial remission (HCC) Left-sided carotid artery disease (HCC) Encounter for screening mammogram for malignant neoplasm of breast Other screening mammogram Malaise and fatigue Other malaise and fatigue Iron deficiency Iron deficiency anemia, unspecified SOB (shortness of breath) Shortness of breath Anemia, unspecified type- Primary Rheumatoid arthritis involving multiple sites with positive rheumatoid factor (HCC) Need for vaccination Need for prophylactic vaccination and inoculation against unspecified single disease Fibromyalgia Mylagia and myositis, unspecified BPPV (benign paroxysmal positional vertigo), bilateral Osteoporosis Osteoporosis, unspecified Anemia, unspecified type- Primary 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, right Encounter for screening mammogram for high-risk patient Osteoporosis without current pathological fracture, unspecified osteoporosis type Mixed hyperlipidemia Morbid obesity, unspecified obesity type (HCC) SOB (shortness of breath) Shortness of breath Iron malabsorption Other specified intestinal malabsorption Pre-operative examination- Primary Preoperative examination, unspecified Acute medial meniscus tear of right knee, subsequent encounter Chronic diastolic CHF (congestive heart failure) (HCC) Chronic diastolic heart failure Essential hypertension Unspecified essential hypertension Hyperlipidemia with target LDL less than 130 Other and unspecified hyperlipidemia PVC's (premature ventricular contractions) Other premature beats TY (dyspnea on exertion) Other dyspnea and respiratory abnormality Stenosis of carotid artery, unspecified laterality Fibromyalgia Mylagia and myositis, unspecified Insomnia, unspecified type Chronic obstructive pulmonary disease, unspecified COPD type (HCC) GERD without esophagitis Esophageal reflux Iron deficiency anemia, unspecified iron deficiency anemia type Rheumatoid arthritis involving multiple sites, unspecified rheumatoid factor presence Other osteoporosis with current pathological fracture with malunion, subsequent encounter Mild episode of recurrent major depressive disorder (HCC) Encounter for education- Primary Counseling NOS [facility] Establishing care with new doctor, encounter for- Primary Other reasons for seeking consultation Breast screening, unspecified Rheumatoid arthritis Fibromyalgia Mylagia and myositis, unspecified Depression Depressive disorder, not elsewhere classified Asthma Unspecified asthma Routine health maintenance Routine general medical examination at a health care facility Abdominal pain Abdominal pain, unspecified site Mycoplasma pneumonia- Primary Pneumonia due to Mycoplasma pneumoniae Asthma Unspecified asthma Abdominal pain Abdominal pain, unspecified site Rheumatoid arthritis(714.0) Rheumatoid arthritis Fibromyalgia Mylagia and myositis, unspecified Rheumatoid arthritis(714.0)- Primary Rheumatoid arthritis Carotid artery disease (HCC) Unspecified disorders of arteries and arterioles Mycoplasma pneumonia Pneumonia due to Mycoplasma pneumoniae Fibromyalgia- Primary Mylagia and myositis, unspecified Need for prophylactic vaccination and inoculation against influenza Hyperlipidemia LDL goal < 130 Other and unspecified hyperlipidemia Asthma Unspecified asthma Depression Depressive disorder, not elsewhere classified Fracture of triquetrum of left wrist, closed Closed fracture of triquetral (cuneiform) bone of wrist Rheumatoid arthritis(714.0) Rheumatoid arthritis Routine health maintenance Routine general medical examination at a health care facility Routine adult health maintenance Routine general medical examination at a health care facility Carotid artery disease (HCC)- Primary Unspecified disorders of arteries and arterioles Depression Depressive disorder, not elsewhere classified Fibromyalgia Mylagia and myositis, unspecified Asthma Unspecified asthma Rheumatoid arthritis(714.0) Rheumatoid arthritis Insomnia Insomnia, unspecified Hyperlipidemia LDL goal < 130 Other and unspecified hyperlipidemia Carotid artery disease (HCC)- Primary Unspecified disorders of arteries and arterioles Rheumatoid arthritis(714.0) Rheumatoid arthritis Fibromyalgia Mylagia and myositis, unspecified Depression Depressive disorder, not elsewhere classified Asthma Unspecified asthma Hyperlipidemia LDL goal < 130 Other and unspecified hyperlipidemia GERD (gastroesophageal reflux disease) Esophageal reflux Anemia, unspecified- Primary History of peptic ulcer Personal history of peptic ulcer disease Rheumatoid arthritis involving multiple sites with positive rheumatoid factor (HCC)- Primary Anemia due to other cause Screening mammogram for high-risk patient Keratoconjunctivitis sicca, in Sjogren's syndrome (HCC) Sicca syndrome Recurrent major depression in partial remission (HCC) Major depressive disorder, recurrent episode, in partial or unspecified remission Bunion, right Bunion Recurrent major depression in partial remission (HCC)- Primary Major depressive disorder, recurrent episode, in partial or unspecified remission Rheumatoid arthritis involving multiple sites with positive rheumatoid factor (HCC) Left-sided carotid artery disease (HCC) Vitamin D deficiency Unspecified vitamin D deficiency Iron 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) Gastroesophageal reflux disease without esophagitis Esophageal reflux Morbid obesity, unspecified obesity type (HCC) Recurrent major depressive disorder, in partial remission (HCC) Hospital discharge follow-up- Primary Other follow-up examination Rheumatoid arthritis involving multiple sites with positive rheumatoid factor (HCC) Vitamin D deficiency Unspecified vitamin D deficiency Occlusion of left carotid artery Occlusion and stenosis of carotid artery without mention of cerebral infarction Recurrent major depressive disorder, in partial remission (HCC) Left-sided carotid artery disease (HCC) Encounter for screening mammogram for malignant neoplasm of breast Other screening mammogram Malaise and fatigue Other malaise and fatigue Iron deficiency Iron deficiency anemia, unspecified SOB (shortness of breath) Shortness of breath Anemia, unspecified type- Primary Rheumatoid arthritis involving multiple sites with positive rheumatoid factor (HCC) Need for vaccination Need for prophylactic vaccination and inoculation against unspecified single disease Fibromyalgia Mylagia and myositis, unspecified BPPV (benign paroxysmal positional vertigo), bilateral Osteoporosis Osteoporosis, unspecified Anemia, unspecified type- Primary 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, right Encounter for screening mammogram for high-risk patient Osteoporosis without current pathological fracture, unspecified osteoporosis type Mixed hyperlipidemia Morbid obesity, unspecified obesity type (HCC) SOB (shortness of breath) Shortness of breath Iron malabsorption Other specified intestinal malabsorption Pre-operative examination- Primary Preoperative examination, unspecified Acute medial meniscus tear of right knee, subsequent encounter Chronic diastolic CHF (congestive heart failure) (HCC) Chronic diastolic heart failure Essential hypertension Unspecified essential hypertension Hyperlipidemia with target LDL less than 130 Other and unspecified hyperlipidemia PVC's (premature ventricular contractions) Other premature beats TY (dyspnea on exertion) Other dyspnea and respiratory abnormality Stenosis of carotid artery, unspecified laterality Fibromyalgia Mylagia and myositis, unspecified Insomnia, unspecified type Chronic obstructive pulmonary disease, unspecified COPD type (HCC) GERD without esophagitis Esophageal reflux Iron deficiency anemia, unspecified iron deficiency anemia type Rheumatoid arthritis involving multiple sites, unspecified rheumatoid factor presence Other osteoporosis with current pathological fracture with malunion, subsequent encounter Mild episode of recurrent major depressive disorder (HCC) Rheumatoid arthritis involving multiple sites with positive rheumatoid factor (HCC)- Primary High risk medication use Encounter for long-term (current) use of other medications Vitamin D deficiency Unspecified vitamin D deficiency Localized osteoporosis without current pathological fracture Iron deficiency anemia, unspecified iron deficiency anemia type [facility] Diagnosis Establishing care with new doctor, encounter for- Primary Other reasons for seeking consultation Breast screening, unspecified Rheumatoid arthritis Fibromyalgia Mylagia and myositis, unspecified Depression Depressive disorder, not elsewhere classified Asthma Unspecified asthma Routine health maintenance Routine general medical examination at a health care facility Abdominal pain Abdominal pain, unspecified site Mycoplasma pneumonia- Primary Pneumonia due to Mycoplasma pneumoniae Asthma Unspecified asthma Abdominal pain Abdominal pain, unspecified site Rheumatoid arthritis(714.0) Rheumatoid arthritis Fibromyalgia Mylagia and myositis, unspecified Rheumatoid arthritis(714.0)- Primary Rheumatoid arthritis Carotid artery disease (HCC) Unspecified disorders of arteries and arterioles Mycoplasma pneumonia Pneumonia due to Mycoplasma pneumoniae Fibromyalgia- Primary Mylagia and myositis, unspecified Need for prophylactic vaccination and inoculation against influenza Hyperlipidemia LDL goal < 130 Other and unspecified hyperlipidemia Asthma Unspecified asthma Depression Depressive disorder, not elsewhere classified Fracture of triquetrum of left wrist, closed Closed fracture of triquetral (cuneiform) bone of wrist Rheumatoid arthritis(714.0) Rheumatoid arthritis Routine health maintenance Routine general medical examination at a health care facility Routine adult health maintenance Routine general medical examination at a health care facility Carotid artery disease (HCC)- Primary Unspecified disorders of arteries and arterioles Depression Depressive disorder, not elsewhere classified Fibromyalgia Mylagia and myositis, unspecified Asthma Unspecified asthma Rheumatoid arthritis(714.0) Rheumatoid arthritis Insomnia Insomnia, unspecified Hyperlipidemia LDL goal < 130 Other and unspecified hyperlipidemia Carotid artery disease (HCC)- Primary Unspecified disorders of arteries and arterioles Rheumatoid arthritis(714.0) Rheumatoid arthritis Fibromyalgia Mylagia and myositis, unspecified Depression Depressive disorder, not elsewhere classified Asthma Unspecified asthma Hyperlipidemia LDL goal < 130 Other and unspecified hyperlipidemia GERD (gastroesophageal reflux disease) Esophageal reflux Anemia, unspecified- Primary History of peptic ulcer Personal history of peptic ulcer disease Rheumatoid arthritis involving multiple sites with positive rheumatoid factor (HCC)- Primary Anemia due to other cause Screening mammogram for high-risk patient Keratoconjunctivitis sicca, in Sjogren's syndrome (HCC) Sicca syndrome Recurrent major depression in partial remission (HCC) Major depressive disorder, recurrent episode, in partial or unspecified remission Bunion, right Bunion Recurrent major depression in partial remission (HCC)- Primary Major depressive disorder, recurrent episode, in partial or unspecified remission Rheumatoid arthritis involving multiple sites with positive rheumatoid factor (HCC) Left-sided carotid artery disease (HCC) Vitamin D deficiency Unspecified vitamin D deficiency Iron 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) Gastroesophageal reflux disease without esophagitis Esophageal reflux Morbid obesity, unspecified obesity type (HCC) Recurrent major depressive disorder, in partial remission (HCC) Hospital discharge follow-up- Primary Other follow-up examination Rheumatoid arthritis involving multiple sites with positive rheumatoid factor (HCC) Vitamin D deficiency Unspecified vitamin D deficiency Occlusion of left carotid artery Occlusion and stenosis of carotid artery without mention of cerebral infarction Recurrent major depressive disorder, in partial remission (HCC) Left-sided carotid artery disease (HCC) Encounter for screening mammogram for malignant neoplasm of breast Other screening mammogram Malaise and fatigue Other malaise and fatigue Iron deficiency Iron deficiency anemia, unspecified SOB (shortness of breath) Shortness of breath Anemia, unspecified type- Primary Rheumatoid arthritis involving multiple sites with positive rheumatoid factor (HCC) Need for vaccination Need for prophylactic vaccination and inoculation against unspecified single disease Fibromyalgia Mylagia and myositis, unspecified BPPV (benign paroxysmal positional vertigo), bilateral Osteoporosis Osteoporosis, unspecified Anemia, unspecified type- Primary 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, right Encounter for screening mammogram for high-risk patient Osteoporosis without current pathological fracture, unspecified osteoporosis type Mixed hyperlipidemia Morbid obesity, unspecified obesity type (HCC) SOB (shortness of breath) Shortness of breath Iron malabsorption Other specified intestinal malabsorption Pre-operative examination- Primary Preoperative examination, unspecified Acute medial meniscus tear of right knee, subsequent encounter Chronic diastolic CHF (congestive heart failure) (HCC) Chronic diastolic heart failure Essential hypertension Unspecified essential hypertension Hyperlipidemia with target LDL less than 130 Other and unspecified hyperlipidemia PVC's (premature ventricular contractions) Other premature beats TY (dyspnea on exertion) Other dyspnea and respiratory abnormality Stenosis of carotid artery, unspecified laterality Fibromyalgia Mylagia and myositis, unspecified Insomnia, unspecified type Chronic obstructive pulmonary disease, unspecified COPD type (HCC) GERD without esophagitis Esophageal reflux Iron deficiency anemia, unspecified iron deficiency anemia type Rheumatoid arthritis involving multiple sites, unspecified rheumatoid factor presence Other osteoporosis with current pathological fracture with malunion, subsequent encounter Mild episode of recurrent major depressive disorder (HCC) Encounter for gynecological examination (general) (routine) without abnormal findings- Primary Anal cancer (HCC) Malignant neoplasm of anus, unspecified site Encounter for screening for human papillomavirus (HPV) Special screening examination for human papillomavirus (HPV) Pap smear for cervical cancer screening Screening for malignant neoplasm of the cervix Encounter for screening mammogram for breast cancer [facility] Diagnosis Establishing care with new doctor, encounter for- Primary Other reasons for seeking consultation Breast screening, unspecified Rheumatoid arthritis Fibromyalgia Mylagia and myositis, unspecified Depression Depressive disorder, not elsewhere classified Asthma Unspecified asthma Routine health maintenance Routine general medical examination at a health care facility Abdominal pain Abdominal pain, unspecified site Mycoplasma pneumonia- Primary Pneumonia due to Mycoplasma pneumoniae Asthma Unspecified asthma Abdominal pain Abdominal pain, unspecified site Rheumatoid arthritis(714.0) Rheumatoid arthritis Fibromyalgia Mylagia and myositis, unspecified Rheumatoid arthritis(714.0)- Primary Rheumatoid arthritis Carotid artery disease (HCC) Unspecified disorders of arteries and arterioles Mycoplasma pneumonia Pneumonia due to Mycoplasma pneumoniae Fibromyalgia- Primary Mylagia and myositis, unspecified Need for prophylactic vaccination and inoculation against influenza Hyperlipidemia LDL goal < 130 Other and unspecified hyperlipidemia Asthma Unspecified asthma Depression Depressive disorder, not elsewhere classified Fracture of triquetrum of left wrist, closed Closed fracture of triquetral (cuneiform) bone of wrist Rheumatoid arthritis(714.0) Rheumatoid arthritis Routine health maintenance Routine general medical examination at a health care facility Routine adult health maintenance Routine general medical examination at a health care facility Carotid artery disease (HCC)- Primary Unspecified disorders of arteries and arterioles Depression Depressive disorder, not elsewhere classified Fibromyalgia Mylagia and myositis, unspecified Asthma Unspecified asthma Rheumatoid arthritis(714.0) Rheumatoid arthritis Insomnia Insomnia, unspecified Hyperlipidemia LDL goal < 130 Other and unspecified hyperlipidemia Carotid artery disease (HCC)- Primary Unspecified disorders of arteries and arterioles Rheumatoid arthritis(714.0) Rheumatoid arthritis Fibromyalgia Mylagia and myositis, unspecified Depression Depressive disorder, not elsewhere classified Asthma Unspecified asthma Hyperlipidemia LDL goal < 130 Other and unspecified hyperlipidemia GERD (gastroesophageal reflux disease) Esophageal reflux Anemia, unspecified- Primary History of peptic ulcer Personal history of peptic ulcer disease Rheumatoid arthritis involving multiple sites with positive rheumatoid factor (HCC)- Primary Anemia due to other cause Screening mammogram for high-risk patient Keratoconjunctivitis sicca, in Sjogren's syndrome (HCC) Sicca syndrome Recurrent major depression in partial remission (HCC) Major depressive disorder, recurrent episode, in partial or unspecified remission Bunion, right Bunion Recurrent major depression in partial remission (HCC)- Primary Major depressive disorder, recurrent episode, in partial or unspecified remission Rheumatoid arthritis involving multiple sites with positive rheumatoid factor (HCC) Left-sided carotid artery disease (HCC) Vitamin D deficiency Unspecified vitamin D deficiency Iron 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) Gastroesophageal reflux disease without esophagitis Esophageal reflux Morbid obesity, unspecified obesity type (HCC) Recurrent major depressive disorder, in partial remission (HCC) Hospital discharge follow-up- Primary Other follow-up examination Rheumatoid arthritis involving multiple sites with positive rheumatoid factor (HCC) Vitamin D deficiency Unspecified vitamin D deficiency Occlusion of left carotid artery Occlusion and stenosis of carotid artery without mention of cerebral infarction Recurrent major depressive disorder, in partial remission (HCC) Left-sided carotid artery disease (HCC) Encounter for screening mammogram for malignant neoplasm of breast Other screening mammogram Malaise and fatigue Other malaise and fatigue Iron deficiency Iron deficiency anemia, unspecified SOB (shortness of breath) Shortness of breath Anemia, unspecified type- Primary Rheumatoid arthritis involving multiple sites with positive rheumatoid factor (HCC) Need for vaccination Need for prophylactic vaccination and inoculation against unspecified single disease Fibromyalgia Mylagia and myositis, unspecified BPPV (benign paroxysmal positional vertigo), bilateral Osteoporosis Osteoporosis, unspecified Anemia, unspecified type- Primary 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, right Encounter for screening mammogram for high-risk patient Osteoporosis without current pathological fracture, unspecified osteoporosis type Mixed hyperlipidemia Morbid obesity, unspecified obesity type (HCC) SOB (shortness of breath) Shortness of breath Iron malabsorption Other specified intestinal malabsorption Pre-operative examination- Primary Preoperative examination, unspecified Acute medial meniscus tear of right knee, subsequent encounter Chronic diastolic CHF (congestive heart failure) (HCC) Chronic diastolic heart failure Essential hypertension Unspecified essential hypertension Hyperlipidemia with target LDL less than 130 Other and unspecified hyperlipidemia PVC's (premature ventricular contractions) Other premature beats TY (dyspnea on exertion) Other dyspnea and respiratory abnormality Stenosis of carotid artery, unspecified laterality Fibromyalgia Mylagia and myositis, unspecified Insomnia, unspecified type Chronic obstructive pulmonary disease, unspecified COPD type (HCC) GERD without esophagitis Esophageal reflux Iron deficiency anemia, unspecified iron deficiency anemia type Rheumatoid arthritis involving multiple sites, unspecified rheumatoid factor presence Other osteoporosis with current pathological fracture with malunion, subsequent encounter Mild episode of recurrent major depressive disorder (HCC) Encounter for gynecological examination (general) (routine) without abnormal findings Encounter for screening mammogram for breast cancer [facility] Establishing care with new doctor, encounter for- Primary Other reasons for seeking consultation Breast screening, unspecified Rheumatoid arthritis Fibromyalgia Mylagia and myositis, unspecified Depression Depressive disorder, not elsewhere classified Asthma Unspecified asthma Routine health maintenance Routine general medical examination at a health care facility Abdominal pain Abdominal pain, unspecified site Mycoplasma pneumonia- Primary Pneumonia due to Mycoplasma pneumoniae Asthma Unspecified asthma Abdominal pain Abdominal pain, unspecified site Rheumatoid arthritis(714.0) Rheumatoid arthritis Fibromyalgia Mylagia and myositis, unspecified Rheumatoid arthritis(714.0)- Primary Rheumatoid arthritis Carotid artery disease (HCC) Unspecified disorders of arteries and arterioles Mycoplasma pneumonia Pneumonia due to Mycoplasma pneumoniae Fibromyalgia- Primary Mylagia and myositis, unspecified Need for prophylactic vaccination and inoculation against influenza Hyperlipidemia LDL goal < 130 Other and unspecified hyperlipidemia Asthma Unspecified asthma Depression Depressive disorder, not elsewhere classified Fracture of triquetrum of left wrist, closed Closed fracture of triquetral (cuneiform) bone of wrist Rheumatoid arthritis(714.0) Rheumatoid arthritis Routine health maintenance Routine general medical examination at a health care facility Routine adult health maintenance Routine general medical examination at a health care facility Carotid artery disease (HCC)- Primary Unspecified disorders of arteries and arterioles Depression Depressive disorder, not elsewhere classified Fibromyalgia Mylagia and myositis, unspecified Asthma Unspecified asthma Rheumatoid arthritis(714.0) Rheumatoid arthritis Insomnia Insomnia, unspecified Hyperlipidemia LDL goal < 130 Other and unspecified hyperlipidemia Carotid artery disease (HCC)- Primary Unspecified disorders of arteries and arterioles Rheumatoid arthritis(714.0) Rheumatoid arthritis Fibromyalgia Mylagia and myositis, unspecified Depression Depressive disorder, not elsewhere classified Asthma Unspecified asthma Hyperlipidemia LDL goal < 130 Other and unspecified hyperlipidemia GERD (gastroesophageal reflux disease) Esophageal reflux Anemia, unspecified- Primary History of peptic ulcer Personal history of peptic ulcer disease Rheumatoid arthritis involving multiple sites with positive rheumatoid factor (HCC)- Primary Anemia due to other cause Screening mammogram for high-risk patient Keratoconjunctivitis sicca, in Sjogren's syndrome (HCC) Sicca syndrome Recurrent major depression in partial remission (HCC) Major depressive disorder, recurrent episode, in partial or unspecified remission Bunion, right Bunion Recurrent major depression in partial remission (HCC)- Primary Major depressive disorder, recurrent episode, in partial or unspecified remission Rheumatoid arthritis involving multiple sites with positive rheumatoid factor (HCC) Left-sided carotid artery disease (HCC) Vitamin D deficiency Unspecified vitamin D deficiency Iron 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) Gastroesophageal reflux disease without esophagitis Esophageal reflux Morbid obesity, unspecified obesity type (HCC) Recurrent major depressive disorder, in partial remission (HCC) Hospital discharge follow-up- Primary Other follow-up examination Rheumatoid arthritis involving multiple sites with positive rheumatoid factor (HCC) Vitamin D deficiency Unspecified vitamin D deficiency Occlusion of left carotid artery Occlusion and stenosis of carotid artery without mention of cerebral infarction Recurrent major depressive disorder, in partial remission (HCC) Left-sided carotid artery disease (HCC) Encounter for screening mammogram for malignant neoplasm of breast Other screening mammogram Malaise and fatigue Other malaise and fatigue Iron deficiency Iron deficiency anemia, unspecified SOB (shortness of breath) Shortness of breath Anemia, unspecified type- Primary Rheumatoid arthritis involving multiple sites with positive rheumatoid factor (HCC) Need for vaccination Need for prophylactic vaccination and inoculation against unspecified single disease Fibromyalgia Mylagia and myositis, unspecified BPPV (benign paroxysmal positional vertigo), bilateral Osteoporosis Osteoporosis, unspecified Anemia, unspecified type- Primary 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, right Encounter for screening mammogram for high-risk patient Osteoporosis without current pathological fracture, unspecified osteoporosis type Mixed hyperlipidemia Morbid obesity, unspecified obesity type (HCC) SOB (shortness of breath) Shortness of breath Iron malabsorption Other specified intestinal malabsorption Pre-operative examination- Primary Preoperative examination, unspecified Acute medial meniscus tear of right knee, subsequent encounter Chronic diastolic CHF (congestive heart failure) (HCC) Chronic diastolic heart failure Essential hypertension Unspecified essential hypertension Hyperlipidemia with target LDL less than 130 Other and unspecified hyperlipidemia PVC's (premature ventricular contractions) Other premature beats TY (dyspnea on exertion) Other dyspnea and respiratory abnormality Stenosis of carotid artery, unspecified laterality Fibromyalgia Mylagia and myositis, unspecified Insomnia, unspecified type Chronic obstructive pulmonary disease, unspecified COPD type (HCC) GERD without esophagitis Esophageal reflux Iron deficiency anemia, unspecified iron deficiency anemia type Rheumatoid arthritis involving multiple sites, unspecified rheumatoid factor presence Other osteoporosis with current pathological fracture with malunion, subsequent encounter Mild episode of recurrent major depressive disorder (HCC) Anal cancer (HCC)- Primary Malignant neoplasm of anus, unspecified site [facility] Establishing care with new doctor, encounter for- Primary Other reasons for seeking consultation Breast screening, unspecified Rheumatoid arthritis Fibromyalgia Mylagia and myositis, unspecified Depression Depressive disorder, not elsewhere classified Asthma Unspecified asthma Routine health maintenance Routine general medical examination at a health care facility Abdominal pain Abdominal pain, unspecified site Mycoplasma pneumonia- Primary Pneumonia due to Mycoplasma pneumoniae Asthma Unspecified asthma Abdominal pain Abdominal pain, unspecified site Rheumatoid arthritis(714.0) Rheumatoid arthritis Fibromyalgia Mylagia and myositis, unspecified Rheumatoid arthritis(714.0)- Primary Rheumatoid arthritis Carotid artery disease (HCC) Unspecified disorders of arteries and arterioles Mycoplasma pneumonia Pneumonia due to Mycoplasma pneumoniae Fibromyalgia- Primary Mylagia and myositis, unspecified Need for prophylactic vaccination and inoculation against influenza Hyperlipidemia LDL goal < 130 Other and unspecified hyperlipidemia Asthma Unspecified asthma Depression Depressive disorder, not elsewhere classified Fracture of triquetrum of left wrist, closed Closed fracture of triquetral (cuneiform) bone of wrist Rheumatoid arthritis(714.0) Rheumatoid arthritis Routine health maintenance Routine general medical examination at a health care facility Routine adult health maintenance Routine general medical examination at a health care facility Carotid artery disease (HCC)- Primary Unspecified disorders of arteries and arterioles Depression Depressive disorder, not elsewhere classified Fibromyalgia Mylagia and myositis, unspecified Asthma Unspecified asthma Rheumatoid arthritis(714.0) Rheumatoid arthritis Insomnia Insomnia, unspecified Hyperlipidemia LDL goal < 130 Other and unspecified hyperlipidemia Carotid artery disease (HCC)- Primary Unspecified disorders of arteries and arterioles Rheumatoid arthritis(714.0) Rheumatoid arthritis Fibromyalgia Mylagia and myositis, unspecified Depression Depressive disorder, not elsewhere classified Asthma Unspecified asthma Hyperlipidemia LDL goal < 130 Other and unspecified hyperlipidemia GERD (gastroesophageal reflux disease) Esophageal reflux Anemia, unspecified- Primary History of peptic ulcer Personal history of peptic ulcer disease Rheumatoid arthritis involving multiple sites with positive rheumatoid factor (HCC)- Primary Anemia due to other cause Screening mammogram for high-risk patient Keratoconjunctivitis sicca, in Sjogren's syndrome (HCC) Sicca syndrome Recurrent major depression in partial remission (HCC) Major depressive disorder, recurrent episode, in partial or unspecified remission Bunion, right Bunion Recurrent major depression in partial remission (HCC)- Primary Major depressive disorder, recurrent episode, in partial or unspecified remission Rheumatoid arthritis involving multiple sites with positive rheumatoid factor (HCC) Left-sided carotid artery disease (HCC) Vitamin D deficiency Unspecified vitamin D deficiency Iron 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) Gastroesophageal reflux disease without esophagitis Esophageal reflux Morbid obesity, unspecified obesity type (HCC) Recurrent major depressive disorder, in partial remission (HCC) Hospital discharge follow-up- Primary Other follow-up examination Rheumatoid arthritis involving multiple sites with positive rheumatoid factor (HCC) Vitamin D deficiency Unspecified vitamin D deficiency Occlusion of left carotid artery Occlusion and stenosis of carotid artery without mention of cerebral infarction Recurrent major depressive disorder, in partial remission (HCC) Left-sided carotid artery disease (HCC) Encounter for screening mammogram for malignant neoplasm of breast Other screening mammogram Malaise and fatigue Other malaise and fatigue Iron deficiency Iron deficiency anemia, unspecified SOB (shortness of breath) Shortness of breath Anemia, unspecified type- Primary Rheumatoid arthritis involving multiple sites with positive rheumatoid factor (HCC) Need for vaccination Need for prophylactic vaccination and inoculation against unspecified single disease Fibromyalgia Mylagia and myositis, unspecified BPPV (benign paroxysmal positional vertigo), bilateral Osteoporosis Osteoporosis, unspecified Anemia, unspecified type- Primary 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, right Encounter for screening mammogram for high-risk patient Osteoporosis without current pathological fracture, unspecified osteoporosis type Mixed hyperlipidemia Morbid obesity, unspecified obesity type (HCC) SOB (shortness of breath) Shortness of breath Iron malabsorption Other specified intestinal malabsorption Pre-operative examination- Primary Preoperative examination, unspecified Acute medial meniscus tear of right knee, subsequent encounter Chronic diastolic CHF (congestive heart failure) (HCC) Chronic diastolic heart failure Essential hypertension Unspecified essential hypertension Hyperlipidemia with target LDL less than 130 Other and unspecified hyperlipidemia PVC's (premature ventricular contractions) Other premature beats TY (dyspnea on exertion) Other dyspnea and respiratory abnormality Stenosis of carotid artery, unspecified laterality Fibromyalgia Mylagia and myositis, unspecified Insomnia, unspecified type Chronic obstructive pulmonary disease, unspecified COPD type (HCC) GERD without esophagitis Esophageal reflux Iron deficiency anemia, unspecified iron deficiency anemia type Rheumatoid arthritis involving multiple sites, unspecified rheumatoid factor presence Other osteoporosis with current pathological fracture with malunion, subsequent encounter Mild episode of recurrent major depressive disorder (HCC) Anal cancer (HCC)- Primary Malignant neoplasm of anus, unspecified site [facility] Establishing care with new doctor, encounter for- Primary Other reasons for seeking consultation Breast screening, unspecified Rheumatoid arthritis Fibromyalgia Mylagia and myositis, unspecified Depression Depressive disorder, not elsewhere classified Asthma Unspecified asthma Routine health maintenance Routine general medical examination at a health care facility Abdominal pain Abdominal pain, unspecified site Mycoplasma pneumonia- Primary Pneumonia due to Mycoplasma pneumoniae Asthma Unspecified asthma Abdominal pain Abdominal pain, unspecified site Rheumatoid arthritis(714.0) Rheumatoid arthritis Fibromyalgia Mylagia and myositis, unspecified Rheumatoid arthritis(714.0)- Primary Rheumatoid arthritis Carotid artery disease (HCC) Unspecified disorders of arteries and arterioles Mycoplasma pneumonia Pneumonia due to Mycoplasma pneumoniae Fibromyalgia- Primary Mylagia and myositis, unspecified Need for prophylactic vaccination and inoculation against influenza Hyperlipidemia LDL goal < 130 Other and unspecified hyperlipidemia Asthma Unspecified asthma Depression Depressive disorder, not elsewhere classified Fracture of triquetrum of left wrist, closed Closed fracture of triquetral (cuneiform) bone of wrist Rheumatoid arthritis(714.0) Rheumatoid arthritis Routine health maintenance Routine general medical examination at a health care facility Routine adult health maintenance Routine general medical examination at a health care facility Carotid artery disease (HCC)- Primary Unspecified disorders of arteries and arterioles Depression Depressive disorder, not elsewhere classified Fibromyalgia Mylagia and myositis, unspecified Asthma Unspecified asthma Rheumatoid arthritis(714.0) Rheumatoid arthritis Insomnia Insomnia, unspecified Hyperlipidemia LDL goal < 130 Other and unspecified hyperlipidemia Carotid artery disease (HCC)- Primary Unspecified disorders of arteries and arterioles Rheumatoid arthritis(714.0) Rheumatoid arthritis Fibromyalgia Mylagia and myositis, unspecified Depression Depressive disorder, not elsewhere classified Asthma Unspecified asthma Hyperlipidemia LDL goal < 130 Other and unspecified hyperlipidemia GERD (gastroesophageal reflux disease) Esophageal reflux Anemia, unspecified- Primary History of peptic ulcer Personal history of peptic ulcer disease Rheumatoid arthritis involving multiple sites with positive rheumatoid factor (HCC)- Primary Anemia due to other cause Screening mammogram for high-risk patient Keratoconjunctivitis sicca, in Sjogren's syndrome (HCC) Sicca syndrome Recurrent major depression in partial remission (HCC) Major depressive disorder, recurrent episode, in partial or unspecified remission Bunion, right Bunion Recurrent major depression in partial remission (HCC)- Primary Major depressive disorder, recurrent episode, in partial or unspecified remission Rheumatoid arthritis involving multiple sites with positive rheumatoid factor (HCC) Left-sided carotid artery disease (HCC) Vitamin D deficiency Unspecified vitamin D deficiency Iron 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) Gastroesophageal reflux disease without esophagitis Esophageal reflux Morbid obesity, unspecified obesity type (HCC) Recurrent major depressive disorder, in partial remission (HCC) Hospital discharge follow-up- Primary Other follow-up examination Rheumatoid arthritis involving multiple sites with positive rheumatoid factor (HCC) Vitamin D deficiency Unspecified vitamin D deficiency Occlusion of left carotid artery Occlusion and stenosis of carotid artery without mention of cerebral infarction Recurrent major depressive disorder, in partial remission (HCC) Left-sided carotid artery disease (HCC) Encounter for screening mammogram for malignant neoplasm of breast Other screening mammogram Malaise and fatigue Other malaise and fatigue Iron deficiency Iron deficiency anemia, unspecified SOB (shortness of breath) Shortness of breath Anemia, unspecified type- Primary Rheumatoid arthritis involving multiple sites with positive rheumatoid factor (HCC) Need for vaccination Need for prophylactic vaccination and inoculation against unspecified single disease Fibromyalgia Mylagia and myositis, unspecified BPPV (benign paroxysmal positional vertigo), bilateral Osteoporosis Osteoporosis, unspecified Anemia, unspecified type- Primary 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, right Encounter for screening mammogram for high-risk patient Osteoporosis without current pathological fracture, unspecified osteoporosis type Mixed hyperlipidemia Morbid obesity, unspecified obesity type (HCC) SOB (shortness of breath) Shortness of breath Iron malabsorption Other specified intestinal malabsorption Pre-operative examination- Primary Preoperative examination, unspecified Acute medial meniscus tear of right knee, subsequent encounter Chronic diastolic CHF (congestive heart failure) (HCC) Chronic diastolic heart failure Essential hypertension Unspecified essential hypertension Hyperlipidemia with target LDL less than 130 Other and unspecified hyperlipidemia PVC's (premature ventricular contractions) Other premature beats TY (dyspnea on exertion) Other dyspnea and respiratory abnormality Stenosis of carotid artery, unspecified laterality Fibromyalgia Mylagia and myositis, unspecified Insomnia, unspecified type Chronic obstructive pulmonary disease, unspecified COPD type (HCC) GERD without esophagitis Esophageal reflux Iron deficiency anemia, unspecified iron deficiency anemia type Rheumatoid arthritis involving multiple sites, unspecified rheumatoid factor presence Other osteoporosis with current pathological fracture with malunion, subsequent encounter Mild episode of recurrent major depressive disorder (HCC) Anal cancer (HCC)- Primary Malignant neoplasm of anus, unspecified site [facility] Establishing care with new doctor, encounter for- Primary Other reasons for seeking consultation Breast screening, unspecified Rheumatoid arthritis Fibromyalgia Mylagia and myositis, unspecified Depression Depressive disorder, not elsewhere classified Asthma Unspecified asthma Routine health maintenance Routine general medical examination at a health care facility Abdominal pain Abdominal pain, unspecified site Mycoplasma pneumonia- Primary Pneumonia due to Mycoplasma pneumoniae Asthma Unspecified asthma Abdominal pain Abdominal pain, unspecified site Rheumatoid arthritis(714.0) Rheumatoid arthritis Fibromyalgia Mylagia and myositis, unspecified Rheumatoid arthritis(714.0)- Primary Rheumatoid arthritis Carotid artery disease (HCC) Unspecified disorders of arteries and arterioles Mycoplasma pneumonia Pneumonia due to Mycoplasma pneumoniae Fibromyalgia- Primary Mylagia and myositis, unspecified Need for prophylactic vaccination and inoculation against influenza Hyperlipidemia LDL goal < 130 Other and unspecified hyperlipidemia Asthma Unspecified asthma Depression Depressive disorder, not elsewhere classified Fracture of triquetrum of left wrist, closed Closed fracture of triquetral (cuneiform) bone of wrist Rheumatoid arthritis(714.0) Rheumatoid arthritis Routine health maintenance Routine general medical examination at a health care facility Routine adult health maintenance Routine general medical examination at a health care facility Carotid artery disease (HCC)- Primary Unspecified disorders of arteries and arterioles Depression Depressive disorder, not elsewhere classified Fibromyalgia Mylagia and myositis, unspecified Asthma Unspecified asthma Rheumatoid arthritis(714.0) Rheumatoid arthritis Insomnia Insomnia, unspecified Hyperlipidemia LDL goal < 130 Other and unspecified hyperlipidemia Carotid artery disease (HCC)- Primary Unspecified disorders of arteries and arterioles Rheumatoid arthritis(714.0) Rheumatoid arthritis Fibromyalgia Mylagia and myositis, unspecified Depression Depressive disorder, not elsewhere classified Asthma Unspecified asthma Hyperlipidemia LDL goal < 130 Other and unspecified hyperlipidemia GERD (gastroesophageal reflux disease) Esophageal reflux Anemia, unspecified- Primary History of peptic ulcer Personal history of peptic ulcer disease Rheumatoid arthritis involving multiple sites with positive rheumatoid factor (HCC)- Primary Anemia due to other cause Screening mammogram for high-risk patient Keratoconjunctivitis sicca, in Sjogren's syndrome (HCC) Sicca syndrome Recurrent major depression in partial remission (HCC) Major depressive disorder, recurrent episode, in partial or unspecified remission Bunion, right Bunion Recurrent major depression in partial remission (HCC)- Primary Major depressive disorder, recurrent episode, in partial or unspecified remission Rheumatoid arthritis involving multiple sites with positive rheumatoid factor (HCC) Left-sided carotid artery disease (HCC) Vitamin D deficiency Unspecified vitamin D deficiency Iron 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) Gastroesophageal reflux disease without esophagitis Esophageal reflux Morbid obesity, unspecified obesity type (HCC) Recurrent major depressive disorder, in partial remission (HCC) Hospital discharge follow-up- Primary Other follow-up examination Rheumatoid arthritis involving multiple sites with positive rheumatoid factor (HCC) Vitamin D deficiency Unspecified vitamin D deficiency Occlusion of left carotid artery Occlusion and stenosis of carotid artery without mention of cerebral infarction Recurrent major depressive disorder, in partial remission (HCC) Left-sided carotid artery disease (HCC) Encounter for screening mammogram for malignant neoplasm of breast Other screening mammogram Malaise and fatigue Other malaise and fatigue Iron deficiency Iron deficiency anemia, unspecified SOB (shortness of breath) Shortness of breath Anemia, unspecified type- Primary Rheumatoid arthritis involving multiple sites with positive rheumatoid factor (HCC) Need for vaccination Need for prophylactic vaccination and inoculation against unspecified single disease Fibromyalgia Mylagia and myositis, unspecified BPPV (benign paroxysmal positional vertigo), bilateral Osteoporosis Osteoporosis, unspecified Anemia, unspecified type- Primary 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, right Encounter for screening mammogram for high-risk patient Osteoporosis without current pathological fracture, unspecified osteoporosis type Mixed hyperlipidemia Morbid obesity, unspecified obesity type (HCC) SOB (shortness of breath) Shortness of breath Iron malabsorption Other specified intestinal malabsorption Pre-operative examination- Primary Preoperative examination, unspecified Acute medial meniscus tear of right knee, subsequent encounter Chronic diastolic CHF (congestive heart failure) (HCC) Chronic diastolic heart failure Essential hypertension Unspecified essential hypertension Hyperlipidemia with target LDL less than 130 Other and unspecified hyperlipidemia PVC's (premature ventricular contractions) Other premature beats TY (dyspnea on exertion) Other dyspnea and respiratory abnormality Stenosis of carotid artery, unspecified laterality Fibromyalgia Mylagia and myositis, unspecified Insomnia, unspecified type Chronic obstructive pulmonary disease, unspecified COPD type (HCC) GERD without esophagitis Esophageal reflux Iron deficiency anemia, unspecified iron deficiency anemia type Rheumatoid arthritis involving multiple sites, unspecified rheumatoid factor presence Other osteoporosis with current pathological fracture with malunion, subsequent encounter Mild episode of recurrent major depressive disorder (HCC) Anal cancer (HCC)- Primary Malignant neoplasm of anus, unspecified site [facility] Establishing care with new doctor, encounter for- Primary Other reasons for seeking consultation Breast screening, unspecified Rheumatoid arthritis Fibromyalgia Mylagia and myositis, unspecified Depression Depressive disorder, not elsewhere classified Asthma Unspecified asthma Routine health maintenance Routine general medical examination at a health care facility Abdominal pain Abdominal pain, unspecified site Mycoplasma pneumonia- Primary Pneumonia due to Mycoplasma pneumoniae Asthma Unspecified asthma Abdominal pain Abdominal pain, unspecified site Rheumatoid arthritis(714.0) Rheumatoid arthritis Fibromyalgia Mylagia and myositis, unspecified Rheumatoid arthritis(714.0)- Primary Rheumatoid arthritis Carotid artery disease (HCC) Unspecified disorders of arteries and arterioles Mycoplasma pneumonia Pneumonia due to Mycoplasma pneumoniae Fibromyalgia- Primary Mylagia and myositis, unspecified Need for prophylactic vaccination and inoculation against influenza Hyperlipidemia LDL goal < 130 Other and unspecified hyperlipidemia Asthma Unspecified asthma Depression Depressive disorder, not elsewhere classified Fracture of triquetrum of left wrist, closed Closed fracture of triquetral (cuneiform) bone of wrist Rheumatoid arthritis(714.0) Rheumatoid arthritis Routine health maintenance Routine general medical examination at a health care facility Routine adult health maintenance Routine general medical examination at a health care facility Carotid artery disease (HCC)- Primary Unspecified disorders of arteries and arterioles Depression Depressive disorder, not elsewhere classified Fibromyalgia Mylagia and myositis, unspecified Asthma Unspecified asthma Rheumatoid arthritis(714.0) Rheumatoid arthritis Insomnia Insomnia, unspecified Hyperlipidemia LDL goal < 130 Other and unspecified hyperlipidemia Carotid artery disease (HCC)- Primary Unspecified disorders of arteries and arterioles Rheumatoid arthritis(714.0) Rheumatoid arthritis Fibromyalgia Mylagia and myositis, unspecified Depression Depressive disorder, not elsewhere classified Asthma Unspecified asthma Hyperlipidemia LDL goal < 130 Other and unspecified hyperlipidemia GERD (gastroesophageal reflux disease) Esophageal reflux Anemia, unspecified- Primary History of peptic ulcer Personal history of peptic ulcer disease Rheumatoid arthritis involving multiple sites with positive rheumatoid factor (HCC)- Primary Anemia due to other cause Screening mammogram for high-risk patient Keratoconjunctivitis sicca, in Sjogren's syndrome (HCC) Sicca syndrome Recurrent major depression in partial remission (HCC) Major depressive disorder, recurrent episode, in partial or unspecified remission Bunion, right Bunion Recurrent major depression in partial remission (HCC)- Primary Major depressive disorder, recurrent episode, in partial or unspecified remission Rheumatoid arthritis involving multiple sites with positive rheumatoid factor (HCC) Left-sided carotid artery disease (HCC) Vitamin D deficiency Unspecified vitamin D deficiency Iron 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) Gastroesophageal reflux disease without esophagitis Esophageal reflux Morbid obesity, unspecified obesity type (HCC) Recurrent major depressive disorder, in partial remission (HCC) Hospital discharge follow-up- Primary Other follow-up examination Rheumatoid arthritis involving multiple sites with positive rheumatoid factor (HCC) Vitamin D deficiency Unspecified vitamin D deficiency Occlusion of left carotid artery Occlusion and stenosis of carotid artery without mention of cerebral infarction Recurrent major depressive disorder, in partial remission (HCC) Left-sided carotid artery disease (HCC) Encounter for screening mammogram for malignant neoplasm of breast Other screening mammogram Malaise and fatigue Other malaise and fatigue Iron deficiency Iron deficiency anemia, unspecified SOB (shortness of breath) Shortness of breath Anemia, unspecified type- Primary Rheumatoid arthritis involving multiple sites with positive rheumatoid factor (HCC) Need for vaccination Need for prophylactic vaccination and inoculation against unspecified single disease Fibromyalgia Mylagia and myositis, unspecified BPPV (benign paroxysmal positional vertigo), bilateral Osteoporosis Osteoporosis, unspecified Anemia, unspecified type- Primary 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, right Encounter for screening mammogram for high-risk patient Osteoporosis without current pathological fracture, unspecified osteoporosis type Mixed hyperlipidemia Morbid obesity, unspecified obesity type (HCC) SOB (shortness of breath) Shortness of breath Iron malabsorption Other specified intestinal malabsorption Pre-operative examination- Primary Preoperative examination, unspecified Acute medial meniscus tear of right knee, subsequent encounter Chronic diastolic CHF (congestive heart failure) (HCC) Chronic diastolic heart failure Essential hypertension Unspecified essential hypertension Hyperlipidemia with target LDL less than 130 Other and unspecified hyperlipidemia PVC's (premature ventricular contractions) Other premature beats TY (dyspnea on exertion) Other dyspnea and respiratory abnormality Stenosis of carotid artery, unspecified laterality Fibromyalgia Mylagia and myositis, unspecified Insomnia, unspecified type Chronic obstructive pulmonary disease, unspecified COPD type (HCC) GERD without esophagitis Esophageal reflux Iron deficiency anemia, unspecified iron deficiency anemia type Rheumatoid arthritis involving multiple sites, unspecified rheumatoid factor presence Other osteoporosis with current pathological fracture with malunion, subsequent encounter Mild episode of recurrent major depressive disorder (HCC) Anal cancer (HCC)- Primary Malignant neoplasm of anus, unspecified site [facility] Establishing care with new doctor, encounter for- Primary Other reasons for seeking consultation Breast screening, unspecified Rheumatoid arthritis Fibromyalgia Mylagia and myositis, unspecified Depression Depressive disorder, not elsewhere classified Asthma Unspecified asthma Routine health maintenance Routine general medical examination at a health care facility Abdominal pain Abdominal pain, unspecified site Mycoplasma pneumonia- Primary Pneumonia due to Mycoplasma pneumoniae Asthma Unspecified asthma Abdominal pain Abdominal pain, unspecified site Rheumatoid arthritis(714.0) Rheumatoid arthritis Fibromyalgia Mylagia and myositis, unspecified Rheumatoid arthritis(714.0)- Primary Rheumatoid arthritis Carotid artery disease (HCC) Unspecified disorders of arteries and arterioles Mycoplasma pneumonia Pneumonia due to Mycoplasma pneumoniae Fibromyalgia- Primary Mylagia and myositis, unspecified Need for prophylactic vaccination and inoculation against influenza Hyperlipidemia LDL goal < 130 Other and unspecified hyperlipidemia Asthma Unspecified asthma Depression Depressive disorder, not elsewhere classified Fracture of triquetrum of left wrist, closed Closed fracture of triquetral (cuneiform) bone of wrist Rheumatoid arthritis(714.0) Rheumatoid arthritis Routine health maintenance Routine general medical examination at a health care facility Routine adult health maintenance Routine general medical examination at a health care facility Carotid artery disease (HCC)- Primary Unspecified disorders of arteries and arterioles Depression Depressive disorder, not elsewhere classified Fibromyalgia Mylagia and myositis, unspecified Asthma Unspecified asthma Rheumatoid arthritis(714.0) Rheumatoid arthritis Insomnia Insomnia, unspecified Hyperlipidemia LDL goal < 130 Other and unspecified hyperlipidemia Carotid artery disease (HCC)- Primary Unspecified disorders of arteries and arterioles Rheumatoid arthritis(714.0) Rheumatoid arthritis Fibromyalgia Mylagia and myositis, unspecified Depression Depressive disorder, not elsewhere classified Asthma Unspecified asthma Hyperlipidemia LDL goal < 130 Other and unspecified hyperlipidemia GERD (gastroesophageal reflux disease) Esophageal reflux Anemia, unspecified- Primary History of peptic ulcer Personal history of peptic ulcer disease Rheumatoid arthritis involving multiple sites with positive rheumatoid factor (HCC)- Primary Anemia due to other cause Screening mammogram for high-risk patient Keratoconjunctivitis sicca, in Sjogren's syndrome (HCC) Sicca syndrome Recurrent major depression in partial remission (HCC) Major depressive disorder, recurrent episode, in partial or unspecified remission Bunion, right Bunion Recurrent major depression in partial remission (HCC)- Primary Major depressive disorder, recurrent episode, in partial or unspecified remission Rheumatoid arthritis involving multiple sites with positive rheumatoid factor (HCC) Left-sided carotid artery disease (HCC) Vitamin D deficiency Unspecified vitamin D deficiency Iron 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) Gastroesophageal reflux disease without esophagitis Esophageal reflux Morbid obesity, unspecified obesity type (HCC) Recurrent major depressive disorder, in partial remission (HCC) Hospital discharge follow-up- Primary Other follow-up examination Rheumatoid arthritis involving multiple sites with positive rheumatoid factor (HCC) Vitamin D deficiency Unspecified vitamin D deficiency Occlusion of left carotid artery Occlusion and stenosis of carotid artery without mention of cerebral infarction Recurrent major depressive disorder, in partial remission (HCC) Left-sided carotid artery disease (HCC) Encounter for screening mammogram for malignant neoplasm of breast Other screening mammogram Malaise and fatigue Other malaise and fatigue Iron deficiency Iron deficiency anemia, unspecified SOB (shortness of breath) Shortness of breath Anemia, unspecified type- Primary Rheumatoid arthritis involving multiple sites with positive rheumatoid factor (HCC) Need for vaccination Need for prophylactic vaccination and inoculation against unspecified single disease Fibromyalgia Mylagia and myositis, unspecified BPPV (benign paroxysmal positional vertigo), bilateral Osteoporosis Osteoporosis, unspecified Anemia, unspecified type- Primary 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, right Encounter for screening mammogram for high-risk patient Osteoporosis without current pathological fracture, unspecified osteoporosis type Mixed hyperlipidemia Morbid obesity, unspecified obesity type (HCC) SOB (shortness of breath) Shortness of breath Iron malabsorption Other specified intestinal malabsorption Pre-operative examination- Primary Preoperative examination, unspecified Acute medial meniscus tear of right knee, subsequent encounter Chronic diastolic CHF (congestive heart failure) (HCC) Chronic diastolic heart failure Essential hypertension Unspecified essential hypertension Hyperlipidemia with target LDL less than 130 Other and unspecified hyperlipidemia PVC's (premature ventricular contractions) Other premature beats TY (dyspnea on exertion) Other dyspnea and respiratory abnormality Stenosis of carotid artery, unspecified laterality Fibromyalgia Mylagia and myositis, unspecified Insomnia, unspecified type Chronic obstructive pulmonary disease, unspecified COPD type (HCC) GERD without esophagitis Esophageal reflux Iron deficiency anemia, unspecified iron deficiency anemia type Rheumatoid arthritis involving multiple sites, unspecified rheumatoid factor presence Other osteoporosis with current pathological fracture with malunion, subsequent encounter Mild episode of recurrent major depressive disorder (HCC) Anal cancer (HCC)- Primary Malignant neoplasm of anus, unspecified site [facility] Establishing care with new doctor, encounter for- Primary Other reasons for seeking consultation Breast screening, unspecified Rheumatoid arthritis Fibromyalgia Mylagia and myositis, unspecified Depression Depressive disorder, not elsewhere classified Asthma Unspecified asthma Routine health maintenance Routine general medical examination at a health care facility Abdominal pain Abdominal pain, unspecified site Mycoplasma pneumonia- Primary Pneumonia due to Mycoplasma pneumoniae Asthma Unspecified asthma Abdominal pain Abdominal pain, unspecified site Rheumatoid arthritis(714.0) Rheumatoid arthritis Fibromyalgia Mylagia and myositis, unspecified Rheumatoid arthritis(714.0)- Primary Rheumatoid arthritis Carotid artery disease (HCC) Unspecified disorders of arteries and arterioles Mycoplasma pneumonia Pneumonia due to Mycoplasma pneumoniae Fibromyalgia- Primary Mylagia and myositis, unspecified Need for prophylactic vaccination and inoculation against influenza Hyperlipidemia LDL goal < 130 Other and unspecified hyperlipidemia Asthma Unspecified asthma Depression Depressive disorder, not elsewhere classified Fracture of triquetrum of left wrist, closed Closed fracture of triquetral (cuneiform) bone of wrist Rheumatoid arthritis(714.0) Rheumatoid arthritis Routine health maintenance Routine general medical examination at a health care facility Routine adult health maintenance Routine general medical examination at a health care facility Carotid artery disease (HCC)- Primary Unspecified disorders of arteries and arterioles Depression Depressive disorder, not elsewhere classified Fibromyalgia Mylagia and myositis, unspecified Asthma Unspecified asthma Rheumatoid arthritis(714.0) Rheumatoid arthritis Insomnia Insomnia, unspecified Hyperlipidemia LDL goal < 130 Other and unspecified hyperlipidemia Carotid artery disease (HCC)- Primary Unspecified disorders of arteries and arterioles Rheumatoid arthritis(714.0) Rheumatoid arthritis Fibromyalgia Mylagia and myositis, unspecified Depression Depressive disorder, not elsewhere classified Asthma Unspecified asthma Hyperlipidemia LDL goal < 130 Other and unspecified hyperlipidemia GERD (gastroesophageal reflux disease) Esophageal reflux Anemia, unspecified- Primary History of peptic ulcer Personal history of peptic ulcer disease Rheumatoid arthritis involving multiple sites with positive rheumatoid factor (HCC)- Primary Anemia due to other cause Screening mammogram for high-risk patient Keratoconjunctivitis sicca, in Sjogren's syndrome (HCC) Sicca syndrome Recurrent major depression in partial remission (HCC) Major depressive disorder, recurrent episode, in partial or unspecified remission Bunion, right Bunion Recurrent major depression in partial remission (HCC)- Primary Major depressive disorder, recurrent episode, in partial or unspecified remission Rheumatoid arthritis involving multiple sites with positive rheumatoid factor (HCC) Left-sided carotid artery disease (HCC) Vitamin D deficiency Unspecified vitamin D deficiency Iron 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) Gastroesophageal reflux disease without esophagitis Esophageal reflux Morbid obesity, unspecified obesity type (HCC) Recurrent major depressive disorder, in partial remission (HCC) Hospital discharge follow-up- Primary Other follow-up examination Rheumatoid arthritis involving multiple sites with positive rheumatoid factor (HCC) Vitamin D deficiency Unspecified vitamin D deficiency Occlusion of left carotid artery Occlusion and stenosis of carotid artery without mention of cerebral infarction Recurrent major depressive disorder, in partial remission (HCC) Left-sided carotid artery disease (HCC) Encounter for screening mammogram for malignant neoplasm of breast Other screening mammogram Malaise and fatigue Other malaise and fatigue Iron deficiency Iron deficiency anemia, unspecified SOB (shortness of breath) Shortness of breath Anemia, unspecified type- Primary Rheumatoid arthritis involving multiple sites with positive rheumatoid factor (HCC) Need for vaccination Need for prophylactic vaccination and inoculation against unspecified single disease Fibromyalgia Mylagia and myositis, unspecified BPPV (benign paroxysmal positional vertigo), bilateral Osteoporosis Osteoporosis, unspecified Anemia, unspecified type- Primary 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, right Encounter for screening mammogram for high-risk patient Osteoporosis without current pathological fracture, unspecified osteoporosis type Mixed hyperlipidemia Morbid obesity, unspecified obesity type (HCC) SOB (shortness of breath) Shortness of breath Iron malabsorption Other specified intestinal malabsorption Pre-operative examination- Primary Preoperative examination, unspecified Acute medial meniscus tear of right knee, subsequent encounter Chronic diastolic CHF (congestive heart failure) (HCC) Chronic diastolic heart failure Essential hypertension Unspecified essential hypertension Hyperlipidemia with target LDL less than 130 Other and unspecified hyperlipidemia PVC's (premature ventricular contractions) Other premature beats TY (dyspnea on exertion) Other dyspnea and respiratory abnormality Stenosis of carotid artery, unspecified laterality Fibromyalgia Mylagia and myositis, unspecified Insomnia, unspecified type Chronic obstructive pulmonary disease, unspecified COPD type (HCC) GERD without esophagitis Esophageal reflux Iron deficiency anemia, unspecified iron deficiency anemia type Rheumatoid arthritis involving multiple sites, unspecified rheumatoid factor presence Other osteoporosis with current pathological fracture with malunion, subsequent encounter Mild episode of recurrent major depressive disorder (HCC) Anal cancer (HCC) Malignant neoplasm of anus, unspecified site [facility] Establishing care with new doctor, encounter for- Primary Other reasons for seeking consultation Breast screening, unspecified Rheumatoid arthritis Fibromyalgia Mylagia and myositis, unspecified Depression Depressive disorder, not elsewhere classified Asthma Unspecified asthma Routine health maintenance Routine general medical examination at a health care facility Abdominal pain Abdominal pain, unspecified site Mycoplasma pneumonia- Primary Pneumonia due to Mycoplasma pneumoniae Asthma Unspecified asthma Abdominal pain Abdominal pain, unspecified site Rheumatoid arthritis(714.0) Rheumatoid arthritis Fibromyalgia Mylagia and myositis, unspecified Rheumatoid arthritis(714.0)- Primary Rheumatoid arthritis Carotid artery disease (HCC) Unspecified disorders of arteries and arterioles Mycoplasma pneumonia Pneumonia due to Mycoplasma pneumoniae Fibromyalgia- Primary Mylagia and myositis, unspecified Need for prophylactic vaccination and inoculation against influenza Hyperlipidemia LDL goal < 130 Other and unspecified hyperlipidemia Asthma Unspecified asthma Depression Depressive disorder, not elsewhere classified Fracture of triquetrum of left wrist, closed Closed fracture of triquetral (cuneiform) bone of wrist Rheumatoid arthritis(714.0) Rheumatoid arthritis Routine health maintenance Routine general medical examination at a health care facility Routine adult health maintenance Routine general medical examination at a health care facility Carotid artery disease (HCC)- Primary Unspecified disorders of arteries and arterioles Depression Depressive disorder, not elsewhere classified Fibromyalgia Mylagia and myositis, unspecified Asthma Unspecified asthma Rheumatoid arthritis(714.0) Rheumatoid arthritis Insomnia Insomnia, unspecified Hyperlipidemia LDL goal < 130 Other and unspecified hyperlipidemia Carotid artery disease (HCC)- Primary Unspecified disorders of arteries and arterioles Rheumatoid arthritis(714.0) Rheumatoid arthritis Fibromyalgia Mylagia and myositis, unspecified Depression Depressive disorder, not elsewhere classified Asthma Unspecified asthma Hyperlipidemia LDL goal < 130 Other and unspecified hyperlipidemia GERD (gastroesophageal reflux disease) Esophageal reflux Anemia, unspecified- Primary History of peptic ulcer Personal history of peptic ulcer disease Rheumatoid arthritis involving multiple sites with positive rheumatoid factor (HCC)- Primary Anemia due to other cause Screening mammogram for high-risk patient Keratoconjunctivitis sicca, in Sjogren's syndrome (HCC) Sicca syndrome Recurrent major depression in partial remission (HCC) Major depressive disorder, recurrent episode, in partial or unspecified remission Bunion, right Bunion Recurrent major depression in partial remission (HCC)- Primary Major depressive disorder, recurrent episode, in partial or unspecified remission Rheumatoid arthritis involving multiple sites with positive rheumatoid factor (HCC) Left-sided carotid artery disease (HCC) Vitamin D deficiency Unspecified vitamin D deficiency Iron 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) Gastroesophageal reflux disease without esophagitis Esophageal reflux Morbid obesity, unspecified obesity type (HCC) Recurrent major depressive disorder, in partial remission (HCC) Hospital discharge follow-up- Primary Other follow-up examination Rheumatoid arthritis involving multiple sites with positive rheumatoid factor (HCC) Vitamin D deficiency Unspecified vitamin D deficiency Occlusion of left carotid artery Occlusion and stenosis of carotid artery without mention of cerebral infarction Recurrent major depressive disorder, in partial remission (HCC) Left-sided carotid artery disease (HCC) Encounter for screening mammogram for malignant neoplasm of breast Other screening mammogram Malaise and fatigue Other malaise and fatigue Iron deficiency Iron deficiency anemia, unspecified SOB (shortness of breath) Shortness of breath Anemia, unspecified type- Primary Rheumatoid arthritis involving multiple sites with positive rheumatoid factor (HCC) Need for vaccination Need for prophylactic vaccination and inoculation against unspecified single disease Fibromyalgia Mylagia and myositis, unspecified BPPV (benign paroxysmal positional vertigo), bilateral Osteoporosis Osteoporosis, unspecified Anemia, unspecified type- Primary 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, right Encounter for screening mammogram for high-risk patient Osteoporosis without current pathological fracture, unspecified osteoporosis type Mixed hyperlipidemia Morbid obesity, unspecified obesity type (HCC) SOB (shortness of breath) Shortness of breath Iron malabsorption Other specified intestinal malabsorption Pre-operative examination- Primary Preoperative examination, unspecified Acute medial meniscus tear of right knee, subsequent encounter Chronic diastolic CHF (congestive heart failure) (HCC) Chronic diastolic heart failure Essential hypertension Unspecified essential hypertension Hyperlipidemia with target LDL less than 130 Other and unspecified hyperlipidemia PVC's (premature ventricular contractions) Other premature beats TY (dyspnea on exertion) Other dyspnea and respiratory abnormality Stenosis of carotid artery, unspecified laterality Fibromyalgia Mylagia and myositis, unspecified Insomnia, unspecified type Chronic obstructive pulmonary disease, unspecified COPD type (HCC) GERD without esophagitis Esophageal reflux Iron deficiency anemia, unspecified iron deficiency anemia type Rheumatoid arthritis involving multiple sites, unspecified rheumatoid factor presence Other osteoporosis with current pathological fracture with malunion, subsequent encounter Mild episode of recurrent major depressive disorder (HCC) Stomatitis and mucositis- Primary Stomatitis and mucositis, unspecified [facility] Establishing care with new doctor, encounter for- Primary Other reasons for seeking consultation Breast screening, unspecified Rheumatoid arthritis Fibromyalgia Mylagia and myositis, unspecified Depression Depressive disorder, not elsewhere classified Asthma Unspecified asthma Routine health maintenance Routine general medical examination at a health care facility Abdominal pain Abdominal pain, unspecified site Mycoplasma pneumonia- Primary Pneumonia due to Mycoplasma pneumoniae Asthma Unspecified asthma Abdominal pain Abdominal pain, unspecified site Rheumatoid arthritis(714.0) Rheumatoid arthritis Fibromyalgia Mylagia and myositis, unspecified Rheumatoid arthritis(714.0)- Primary Rheumatoid arthritis Carotid artery disease (HCC) Unspecified disorders of arteries and arterioles Mycoplasma pneumonia Pneumonia due to Mycoplasma pneumoniae Fibromyalgia- Primary Mylagia and myositis, unspecified Need for prophylactic vaccination and inoculation against influenza Hyperlipidemia LDL goal < 130 Other and unspecified hyperlipidemia Asthma Unspecified asthma Depression Depressive disorder, not elsewhere classified Fracture of triquetrum of left wrist, closed Closed fracture of triquetral (cuneiform) bone of wrist Rheumatoid arthritis(714.0) Rheumatoid arthritis Routine health maintenance Routine general medical examination at a health care facility Routine adult health maintenance Routine general medical examination at a health care facility Carotid artery disease (HCC)- Primary Unspecified disorders of arteries and arterioles Depression Depressive disorder, not elsewhere classified Fibromyalgia Mylagia and myositis, unspecified Asthma Unspecified asthma Rheumatoid arthritis(714.0) Rheumatoid arthritis Insomnia Insomnia, unspecified Hyperlipidemia LDL goal < 130 Other and unspecified hyperlipidemia Carotid artery disease (HCC)- Primary Unspecified disorders of arteries and arterioles Rheumatoid arthritis(714.0) Rheumatoid arthritis Fibromyalgia Mylagia and myositis, unspecified Depression Depressive disorder, not elsewhere classified Asthma Unspecified asthma Hyperlipidemia LDL goal < 130 Other and unspecified hyperlipidemia GERD (gastroesophageal reflux disease) Esophageal reflux Anemia, unspecified- Primary History of peptic ulcer Personal history of peptic ulcer disease Rheumatoid arthritis involving multiple sites with positive rheumatoid factor (HCC)- Primary Anemia due to other cause Screening mammogram for high-risk patient Keratoconjunctivitis sicca, in Sjogren's syndrome (HCC) Sicca syndrome Recurrent major depression in partial remission (HCC) Major depressive disorder, recurrent episode, in partial or unspecified remission Bunion, right Bunion Recurrent major depression in partial remission (HCC)- Primary Major depressive disorder, recurrent episode, in partial or unspecified remission Rheumatoid arthritis involving multiple sites with positive rheumatoid factor (HCC) Left-sided carotid artery disease (HCC) Vitamin D deficiency Unspecified vitamin D deficiency Iron 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) Gastroesophageal reflux disease without esophagitis Esophageal reflux Morbid obesity, unspecified obesity type (HCC) Recurrent major depressive disorder, in partial remission (HCC) Hospital discharge follow-up- Primary Other follow-up examination Rheumatoid arthritis involving multiple sites with positive rheumatoid factor (HCC) Vitamin D deficiency Unspecified vitamin D deficiency Occlusion of left carotid artery Occlusion and stenosis of carotid artery without mention of cerebral infarction Recurrent major depressive disorder, in partial remission (HCC) Left-sided carotid artery disease (HCC) Encounter for screening mammogram for malignant neoplasm of breast Other screening mammogram Malaise and fatigue Other malaise and fatigue Iron deficiency Iron deficiency anemia, unspecified SOB (shortness of breath) Shortness of breath Anemia, unspecified type- Primary Rheumatoid arthritis involving multiple sites with positive rheumatoid factor (HCC) Need for vaccination Need for prophylactic vaccination and inoculation against unspecified single disease Fibromyalgia Mylagia and myositis, unspecified BPPV (benign paroxysmal positional vertigo), bilateral Osteoporosis Osteoporosis, unspecified Anemia, unspecified type- Primary 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, right Encounter for screening mammogram for high-risk patient Osteoporosis without current pathological fracture, unspecified osteoporosis type Mixed hyperlipidemia Morbid obesity, unspecified obesity type (HCC) SOB (shortness of breath) Shortness of breath Iron malabsorption Other specified intestinal malabsorption Pre-operative examination- Primary Preoperative examination, unspecified Acute medial meniscus tear of right knee, subsequent encounter Chronic diastolic CHF (congestive heart failure) (HCC) Chronic diastolic heart failure Essential hypertension Unspecified essential hypertension Hyperlipidemia with target LDL less than 130 Other and unspecified hyperlipidemia PVC's (premature ventricular contractions) Other premature beats TY (dyspnea on exertion) Other dyspnea and respiratory abnormality Stenosis of carotid artery, unspecified laterality Fibromyalgia Mylagia and myositis, unspecified Insomnia, unspecified type Chronic obstructive pulmonary disease, unspecified COPD type (HCC) GERD without esophagitis Esophageal reflux Iron deficiency anemia, unspecified iron deficiency anemia type Rheumatoid arthritis involving multiple sites, unspecified rheumatoid factor presence Other osteoporosis with current pathological fracture with malunion, subsequent encounter Mild episode of recurrent major depressive disorder (HCC) Anal cancer (HCC)- Primary Malignant neoplasm of anus, unspecified site [facility] Establishing care with new doctor, encounter for- Primary Other reasons for seeking consultation Breast screening, unspecified Rheumatoid arthritis Fibromyalgia Mylagia and myositis, unspecified Depression Depressive disorder, not elsewhere classified Asthma Unspecified asthma Routine health maintenance Routine general medical examination at a health care facility Abdominal pain Abdominal pain, unspecified site Mycoplasma pneumonia- Primary Pneumonia due to Mycoplasma pneumoniae Asthma Unspecified asthma Abdominal pain Abdominal pain, unspecified site Rheumatoid arthritis(714.0) Rheumatoid arthritis Fibromyalgia Mylagia and myositis, unspecified Rheumatoid arthritis(714.0)- Primary Rheumatoid arthritis Carotid artery disease (HCC) Unspecified disorders of arteries and arterioles Mycoplasma pneumonia Pneumonia due to Mycoplasma pneumoniae Fibromyalgia- Primary Mylagia and myositis, unspecified Need for prophylactic vaccination and inoculation against influenza Hyperlipidemia LDL goal < 130 Other and unspecified hyperlipidemia Asthma Unspecified asthma Depression Depressive disorder, not elsewhere classified Fracture of triquetrum of left wrist, closed Closed fracture of triquetral (cuneiform) bone of wrist Rheumatoid arthritis(714.0) Rheumatoid arthritis Routine health maintenance Routine general medical examination at a health care facility Routine adult health maintenance Routine general medical examination at a health care facility Carotid artery disease (HCC)- Primary Unspecified disorders of arteries and arterioles Depression Depressive disorder, not elsewhere classified Fibromyalgia Mylagia and myositis, unspecified Asthma Unspecified asthma Rheumatoid arthritis(714.0) Rheumatoid arthritis Insomnia Insomnia, unspecified Hyperlipidemia LDL goal < 130 Other and unspecified hyperlipidemia Carotid artery disease (HCC)- Primary Unspecified disorders of arteries and arterioles Rheumatoid arthritis(714.0) Rheumatoid arthritis Fibromyalgia Mylagia and myositis, unspecified Depression Depressive disorder, not elsewhere classified Asthma Unspecified asthma Hyperlipidemia LDL goal < 130 Other and unspecified hyperlipidemia GERD (gastroesophageal reflux disease) Esophageal reflux Anemia, unspecified- Primary History of peptic ulcer Personal history of peptic ulcer disease Rheumatoid arthritis involving multiple sites with positive rheumatoid factor (HCC)- Primary Anemia due to other cause Screening mammogram for high-risk patient Keratoconjunctivitis sicca, in Sjogren's syndrome (HCC) Sicca syndrome Recurrent major depression in partial remission (HCC) Major depressive disorder, recurrent episode, in partial or unspecified remission Bunion, right Bunion Recurrent major depression in partial remission (HCC)- Primary Major depressive disorder, recurrent episode, in partial or unspecified remission Rheumatoid arthritis involving multiple sites with positive rheumatoid factor (HCC) Left-sided carotid artery disease (HCC) Vitamin D deficiency Unspecified vitamin D deficiency Iron 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) Gastroesophageal reflux disease without esophagitis Esophageal reflux Morbid obesity, unspecified obesity type (HCC) Recurrent major depressive disorder, in partial remission (HCC) Hospital discharge follow-up- Primary Other follow-up examination Rheumatoid arthritis involving multiple sites with positive rheumatoid factor (HCC) Vitamin D deficiency Unspecified vitamin D deficiency Occlusion of left carotid artery Occlusion and stenosis of carotid artery without mention of cerebral infarction Recurrent major depressive disorder, in partial remission (HCC) Left-sided carotid artery disease (HCC) Encounter for screening mammogram for malignant neoplasm of breast Other screening mammogram Malaise and fatigue Other malaise and fatigue Iron deficiency Iron deficiency anemia, unspecified SOB (shortness of breath) Shortness of breath Anemia, unspecified type- Primary Rheumatoid arthritis involving multiple sites with positive rheumatoid factor (HCC) Need for vaccination Need for prophylactic vaccination and inoculation against unspecified single disease Fibromyalgia Mylagia and myositis, unspecified BPPV (benign paroxysmal positional vertigo), bilateral Osteoporosis Osteoporosis, unspecified Anemia, unspecified type- Primary 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, right Encounter for screening mammogram for high-risk patient Osteoporosis without current pathological fracture, unspecified osteoporosis type Mixed hyperlipidemia Morbid obesity, unspecified obesity type (HCC) SOB (shortness of breath) Shortness of breath Iron malabsorption Other specified intestinal malabsorption Pre-operative examination- Primary Preoperative examination, unspecified Acute medial meniscus tear of right knee, subsequent encounter Chronic diastolic CHF (congestive heart failure) (HCC) Chronic diastolic heart failure Essential hypertension Unspecified essential hypertension Hyperlipidemia with target LDL less than 130 Other and unspecified hyperlipidemia PVC's (premature ventricular contractions) Other premature beats TY (dyspnea on exertion) Other dyspnea and respiratory abnormality Stenosis of carotid artery, unspecified laterality Fibromyalgia Mylagia and myositis, unspecified Insomnia, unspecified type Chronic obstructive pulmonary disease, unspecified COPD type (HCC) GERD without esophagitis Esophageal reflux Iron deficiency anemia, unspecified iron deficiency anemia type Rheumatoid arthritis involving multiple sites, unspecified rheumatoid factor presence Other osteoporosis with current pathological fracture with malunion, subsequent encounter Mild episode of recurrent major depressive disorder (HCC) Anal cancer (HCC)- Primary Malignant neoplasm of anus, unspecified site [facility] Establishing care with new doctor, encounter for- Primary Other reasons for seeking consultation Breast screening, unspecified Rheumatoid arthritis Fibromyalgia Mylagia and myositis, unspecified Depression Depressive disorder, not elsewhere classified Asthma Unspecified asthma Routine health maintenance Routine general medical examination at a health care facility Abdominal pain Abdominal pain, unspecified site Mycoplasma pneumonia- Primary Pneumonia due to Mycoplasma pneumoniae Asthma Unspecified asthma Abdominal pain Abdominal pain, unspecified site Rheumatoid arthritis(714.0) Rheumatoid arthritis Fibromyalgia Mylagia and myositis, unspecified Rheumatoid arthritis(714.0)- Primary Rheumatoid arthritis Carotid artery disease (HCC) Unspecified disorders of arteries and arterioles Mycoplasma pneumonia Pneumonia due to Mycoplasma pneumoniae Fibromyalgia- Primary Mylagia and myositis, unspecified Need for prophylactic vaccination and inoculation against influenza Hyperlipidemia LDL goal < 130 Other and unspecified hyperlipidemia Asthma Unspecified asthma Depression Depressive disorder, not elsewhere classified Fracture of triquetrum of left wrist, closed Closed fracture of triquetral (cuneiform) bone of wrist Rheumatoid arthritis(714.0) Rheumatoid arthritis Routine health maintenance Routine general medical examination at a health care facility Routine adult health maintenance Routine general medical examination at a health care facility Carotid artery disease (HCC)- Primary Unspecified disorders of arteries and arterioles Depression Depressive disorder, not elsewhere classified Fibromyalgia Mylagia and myositis, unspecified Asthma Unspecified asthma Rheumatoid arthritis(714.0) Rheumatoid arthritis Insomnia Insomnia, unspecified Hyperlipidemia LDL goal < 130 Other and unspecified hyperlipidemia Carotid artery disease (HCC)- Primary Unspecified disorders of arteries and arterioles Rheumatoid arthritis(714.0) Rheumatoid arthritis Fibromyalgia Mylagia and myositis, unspecified Depression Depressive disorder, not elsewhere classified Asthma Unspecified asthma Hyperlipidemia LDL goal < 130 Other and unspecified hyperlipidemia GERD (gastroesophageal reflux disease) Esophageal reflux Anemia, unspecified- Primary History of peptic ulcer Personal history of peptic ulcer disease Rheumatoid arthritis involving multiple sites with positive rheumatoid factor (HCC)- Primary Anemia due to other cause Screening mammogram for high-risk patient Keratoconjunctivitis sicca, in Sjogren's syndrome (HCC) Sicca syndrome Recurrent major depression in partial remission (HCC) Major depressive disorder, recurrent episode, in partial or unspecified remission Bunion, right Bunion Recurrent major depression in partial remission (HCC)- Primary Major depressive disorder, recurrent episode, in partial or unspecified remission Rheumatoid arthritis involving multiple sites with positive rheumatoid factor (HCC) Left-sided carotid artery disease (HCC) Vitamin D deficiency Unspecified vitamin D deficiency Iron 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) Gastroesophageal reflux disease without esophagitis Esophageal reflux Morbid obesity, unspecified obesity type (HCC) Recurrent major depressive disorder, in partial remission (HCC) Hospital discharge follow-up- Primary Other follow-up examination Rheumatoid arthritis involving multiple sites with positive rheumatoid factor (HCC) Vitamin D deficiency Unspecified vitamin D deficiency Occlusion of left carotid artery Occlusion and stenosis of carotid artery without mention of cerebral infarction Recurrent major depressive disorder, in partial remission (HCC) Left-sided carotid artery disease (HCC) Encounter for screening mammogram for malignant neoplasm of breast Other screening mammogram Malaise and fatigue Other malaise and fatigue Iron deficiency Iron deficiency anemia, unspecified SOB (shortness of breath) Shortness of breath Anemia, unspecified type- Primary Rheumatoid arthritis involving multiple sites with positive rheumatoid factor (HCC) Need for vaccination Need for prophylactic vaccination and inoculation against unspecified single disease Fibromyalgia Mylagia and myositis, unspecified BPPV (benign paroxysmal positional vertigo), bilateral Osteoporosis Osteoporosis, unspecified Anemia, unspecified type- Primary 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, right Encounter for screening mammogram for high-risk patient Osteoporosis without current pathological fracture, unspecified osteoporosis type Mixed hyperlipidemia Morbid obesity, unspecified obesity type (HCC) SOB (shortness of breath) Shortness of breath Iron malabsorption Other specified intestinal malabsorption Pre-operative examination- Primary Preoperative examination, unspecified Acute medial meniscus tear of right knee, subsequent encounter Chronic diastolic CHF (congestive heart failure) (HCC) Chronic diastolic heart failure Essential hypertension Unspecified essential hypertension Hyperlipidemia with target LDL less than 130 Other and unspecified hyperlipidemia PVC's (premature ventricular contractions) Other premature beats TY (dyspnea on exertion) Other dyspnea and respiratory abnormality Stenosis of carotid artery, unspecified laterality Fibromyalgia Mylagia and myositis, unspecified Insomnia, unspecified type Chronic obstructive pulmonary disease, unspecified COPD type (HCC) GERD without esophagitis Esophageal reflux Iron deficiency anemia, unspecified iron deficiency anemia type Rheumatoid arthritis involving multiple sites, unspecified rheumatoid factor presence Other osteoporosis with current pathological fracture with malunion, subsequent encounter Mild episode of recurrent major depressive disorder (HCC) Anal cancer (HCC)- Primary Malignant neoplasm of anus, unspecified site [facility] Establishing care with new doctor, encounter for- Primary Other reasons for seeking consultation Breast screening, unspecified Rheumatoid arthritis Fibromyalgia Mylagia and myositis, unspecified Depression Depressive disorder, not elsewhere classified Asthma Unspecified asthma Routine health maintenance Routine general medical examination at a health care facility Abdominal pain Abdominal pain, unspecified site Mycoplasma pneumonia- Primary Pneumonia due to Mycoplasma pneumoniae Asthma Unspecified asthma Abdominal pain Abdominal pain, unspecified site Rheumatoid arthritis(714.0) Rheumatoid arthritis Fibromyalgia Mylagia and myositis, unspecified Rheumatoid arthritis(714.0)- Primary Rheumatoid arthritis Carotid artery disease (HCC) Unspecified disorders of arteries and arterioles Mycoplasma pneumonia Pneumonia due to Mycoplasma pneumoniae Fibromyalgia- Primary Mylagia and myositis, unspecified Need for prophylactic vaccination and inoculation against influenza Hyperlipidemia LDL goal < 130 Other and unspecified hyperlipidemia Asthma Unspecified asthma Depression Depressive disorder, not elsewhere classified Fracture of triquetrum of left wrist, closed Closed fracture of triquetral (cuneiform) bone of wrist Rheumatoid arthritis(714.0) Rheumatoid arthritis Routine health maintenance Routine general medical examination at a health care facility Routine adult health maintenance Routine general medical examination at a health care facility Carotid artery disease (HCC)- Primary Unspecified disorders of arteries and arterioles Depression Depressive disorder, not elsewhere classified Fibromyalgia Mylagia and myositis, unspecified Asthma Unspecified asthma Rheumatoid arthritis(714.0) Rheumatoid arthritis Insomnia Insomnia, unspecified Hyperlipidemia LDL goal < 130 Other and unspecified hyperlipidemia Carotid artery disease (HCC)- Primary Unspecified disorders of arteries and arterioles Rheumatoid arthritis(714.0) Rheumatoid arthritis Fibromyalgia Mylagia and myositis, unspecified Depression Depressive disorder, not elsewhere classified Asthma Unspecified asthma Hyperlipidemia LDL goal < 130 Other and unspecified hyperlipidemia GERD (gastroesophageal reflux disease) Esophageal reflux Anemia, unspecified- Primary History of peptic ulcer Personal history of peptic ulcer disease Rheumatoid arthritis involving multiple sites with positive rheumatoid factor (HCC)- Primary Anemia due to other cause Screening mammogram for high-risk patient Keratoconjunctivitis sicca, in Sjogren's syndrome (HCC) Sicca syndrome Recurrent major depression in partial remission (HCC) Major depressive disorder, recurrent episode, in partial or unspecified remission Bunion, right Bunion Recurrent major depression in partial remission (HCC)- Primary Major depressive disorder, recurrent episode, in partial or unspecified remission Rheumatoid arthritis involving multiple sites with positive rheumatoid factor (HCC) Left-sided carotid artery disease (HCC) Vitamin D deficiency Unspecified vitamin D deficiency Iron 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) Gastroesophageal reflux disease without esophagitis Esophageal reflux Morbid obesity, unspecified obesity type (HCC) Recurrent major depressive disorder, in partial remission (HCC) Hospital discharge follow-up- Primary Other follow-up examination Rheumatoid arthritis involving multiple sites with positive rheumatoid factor (HCC) Vitamin D deficiency Unspecified vitamin D deficiency Occlusion of left carotid artery Occlusion and stenosis of carotid artery without mention of cerebral infarction Recurrent major depressive disorder, in partial remission (HCC) Left-sided carotid artery disease (HCC) Encounter for screening mammogram for malignant neoplasm of breast Other screening mammogram Malaise and fatigue Other malaise and fatigue Iron deficiency Iron deficiency anemia, unspecified SOB (shortness of breath) Shortness of breath Anemia, unspecified type- Primary Rheumatoid arthritis involving multiple sites with positive rheumatoid factor (HCC) Need for vaccination Need for prophylactic vaccination and inoculation against unspecified single disease Fibromyalgia Mylagia and myositis, unspecified BPPV (benign paroxysmal positional vertigo), bilateral Osteoporosis Osteoporosis, unspecified Anemia, unspecified type- Primary 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, right Encounter for screening mammogram for high-risk patient Osteoporosis without current pathological fracture, unspecified osteoporosis type Mixed hyperlipidemia Morbid obesity, unspecified obesity type (HCC) SOB (shortness of breath) Shortness of breath Iron malabsorption Other specified intestinal malabsorption Pre-operative examination- Primary Preoperative examination, unspecified Acute medial meniscus tear of right knee, subsequent encounter Chronic diastolic CHF (congestive heart failure) (HCC) Chronic diastolic heart failure Essential hypertension Unspecified essential hypertension Hyperlipidemia with target LDL less than 130 Other and unspecified hyperlipidemia PVC's (premature ventricular contractions) Other premature beats TY (dyspnea on exertion) Other dyspnea and respiratory abnormality Stenosis of carotid artery, unspecified laterality Fibromyalgia Mylagia and myositis, unspecified Insomnia, unspecified type Chronic obstructive pulmonary disease, unspecified COPD type (HCC) GERD without esophagitis Esophageal reflux Iron deficiency anemia, unspecified iron deficiency anemia type Rheumatoid arthritis involving multiple sites, unspecified rheumatoid factor presence Other osteoporosis with current pathological fracture with malunion, subsequent encounter Mild episode of recurrent major depressive disorder (HCC) Arm swelling- Primary Swelling of limb Anal cancer (HCC) Malignant neoplasm of anus, unspecified site PICC (peripherally inserted central catheter) in place Fitting and adjustment of vascular catheter [facility] Establishing care with new doctor, encounter for- Primary Other reasons for seeking consultation Breast screening, unspecified Rheumatoid arthritis Fibromyalgia Mylagia and myositis, unspecified Depression Depressive disorder, not elsewhere classified Asthma Unspecified asthma Routine health maintenance Routine general medical examination at a health care facility Abdominal pain Abdominal pain, unspecified site Mycoplasma pneumonia- Primary Pneumonia due to Mycoplasma pneumoniae Asthma Unspecified asthma Abdominal pain Abdominal pain, unspecified site Rheumatoid arthritis(714.0) Rheumatoid arthritis Fibromyalgia Mylagia and myositis, unspecified Rheumatoid arthritis(714.0)- Primary Rheumatoid arthritis Carotid artery disease (HCC) Unspecified disorders of arteries and arterioles Mycoplasma pneumonia Pneumonia due to Mycoplasma pneumoniae Fibromyalgia- Primary Mylagia and myositis, unspecified Need for prophylactic vaccination and inoculation against influenza Hyperlipidemia LDL goal < 130 Other and unspecified hyperlipidemia Asthma Unspecified asthma Depression Depressive disorder, not elsewhere classified Fracture of triquetrum of left wrist, closed Closed fracture of triquetral (cuneiform) bone of wrist Rheumatoid arthritis(714.0) Rheumatoid arthritis Routine health maintenance Routine general medical examination at a health care facility Routine adult health maintenance Routine general medical examination at a health care facility Carotid artery disease (HCC)- Primary Unspecified disorders of arteries and arterioles Depression Depressive disorder, not elsewhere classified Fibromyalgia Mylagia and myositis, unspecified Asthma Unspecified asthma Rheumatoid arthritis(714.0) Rheumatoid arthritis Insomnia Insomnia, unspecified Hyperlipidemia LDL goal < 130 Other and unspecified hyperlipidemia Carotid artery disease (HCC)- Primary Unspecified disorders of arteries and arterioles Rheumatoid arthritis(714.0) Rheumatoid arthritis Fibromyalgia Mylagia and myositis, unspecified Depression Depressive disorder, not elsewhere classified Asthma Unspecified asthma Hyperlipidemia LDL goal < 130 Other and unspecified hyperlipidemia GERD (gastroesophageal reflux disease) Esophageal reflux Anemia, unspecified- Primary History of peptic ulcer Personal history of peptic ulcer disease Rheumatoid arthritis involving multiple sites with positive rheumatoid factor (HCC)- Primary Anemia due to other cause Screening mammogram for high-risk patient Keratoconjunctivitis sicca, in Sjogren's syndrome (HCC) Sicca syndrome Recurrent major depression in partial remission (HCC) Major depressive disorder, recurrent episode, in partial or unspecified remission Bunion, right Bunion Recurrent major depression in partial remission (HCC)- Primary Major depressive disorder, recurrent episode, in partial or unspecified remission Rheumatoid arthritis involving multiple sites with positive rheumatoid factor (HCC) Left-sided carotid artery disease (HCC) Vitamin D deficiency Unspecified vitamin D deficiency Iron 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) Gastroesophageal reflux disease without esophagitis Esophageal reflux Morbid obesity, unspecified obesity type (HCC) Recurrent major depressive disorder, in partial remission (HCC) Hospital discharge follow-up- Primary Other follow-up examination Rheumatoid arthritis involving multiple sites with positive rheumatoid factor (HCC) Vitamin D deficiency Unspecified vitamin D deficiency Occlusion of left carotid artery Occlusion and stenosis of carotid artery without mention of cerebral infarction Recurrent major depressive disorder, in partial remission (HCC) Left-sided carotid artery disease (HCC) Encounter for screening mammogram for malignant neoplasm of breast Other screening mammogram Malaise and fatigue Other malaise and fatigue Iron deficiency Iron deficiency anemia, unspecified SOB (shortness of breath) Shortness of breath Anemia, unspecified type- Primary Rheumatoid arthritis involving multiple sites with positive rheumatoid factor (HCC) Need for vaccination Need for prophylactic vaccination and inoculation against unspecified single disease Fibromyalgia Mylagia and myositis, unspecified BPPV (benign paroxysmal positional vertigo), bilateral Osteoporosis Osteoporosis, unspecified Anemia, unspecified type- Primary 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, right Encounter for screening mammogram for high-risk patient Osteoporosis without current pathological fracture, unspecified osteoporosis type Mixed hyperlipidemia Morbid obesity, unspecified obesity type (HCC) SOB (shortness of breath) Shortness of breath Iron malabsorption Other specified intestinal malabsorption Pre-operative examination- Primary Preoperative examination, unspecified Acute medial meniscus tear of right knee, subsequent encounter Chronic diastolic CHF (congestive heart failure) (HCC) Chronic diastolic heart failure Essential hypertension Unspecified essential hypertension Hyperlipidemia with target LDL less than 130 Other and unspecified hyperlipidemia PVC's (premature ventricular contractions) Other premature beats TY (dyspnea on exertion) Other dyspnea and respiratory abnormality Stenosis of carotid artery, unspecified laterality Fibromyalgia Mylagia and myositis, unspecified Insomnia, unspecified type Chronic obstructive pulmonary disease, unspecified COPD type (HCC) GERD without esophagitis Esophageal reflux Iron deficiency anemia, unspecified iron deficiency anemia type Rheumatoid arthritis involving multiple sites, unspecified rheumatoid factor presence Other osteoporosis with current pathological fracture with malunion, subsequent encounter Mild episode of recurrent major depressive disorder (HCC) Anal cancer ([facility])- Primary Malignant neoplasm of anus, unspecified site [facility] Establishing care with new doctor, encounter for- Primary Other reasons for seeking consultation Breast screening, unspecified Rheumatoid arthritis Fibromyalgia Mylagia and myositis, unspecified Depression Depressive disorder, not elsewhere classified Asthma Unspecified asthma Routine health maintenance Routine general medical examination at a health care facility Abdominal pain Abdominal pain, unspecified site Mycoplasma pneumonia- Primary Pneumonia due to Mycoplasma pneumoniae Asthma Unspecified asthma Abdominal pain Abdominal pain, unspecified site Rheumatoid arthritis(714.0) Rheumatoid arthritis Fibromyalgia Mylagia and myositis, unspecified Rheumatoid arthritis(714.0)- Primary Rheumatoid arthritis Carotid artery disease (HCC) Unspecified disorders of arteries and arterioles Mycoplasma pneumonia Pneumonia due to Mycoplasma pneumoniae Fibromyalgia- Primary Mylagia and myositis, unspecified Need for prophylactic vaccination and inoculation against influenza Hyperlipidemia LDL goal < 130 Other and unspecified hyperlipidemia Asthma Unspecified asthma Depression Depressive disorder, not elsewhere classified Fracture of triquetrum of left wrist, closed Closed fracture of triquetral (cuneiform) bone of wrist Rheumatoid arthritis(714.0) Rheumatoid arthritis Routine health maintenance Routine general medical examination at a health care facility Routine adult health maintenance Routine general medical examination at a health care facility Carotid artery disease (HCC)- Primary Unspecified disorders of arteries and arterioles Depression Depressive disorder, not elsewhere classified Fibromyalgia Mylagia and myositis, unspecified Asthma Unspecified asthma Rheumatoid arthritis(714.0) Rheumatoid arthritis Insomnia Insomnia, unspecified Hyperlipidemia LDL goal < 130 Other and unspecified hyperlipidemia Carotid artery disease (HCC)- Primary Unspecified disorders of arteries and arterioles Rheumatoid arthritis(714.0) Rheumatoid arthritis Fibromyalgia Mylagia and myositis, unspecified Depression Depressive disorder, not elsewhere classified Asthma Unspecified asthma Hyperlipidemia LDL goal < 130 Other and unspecified hyperlipidemia GERD (gastroesophageal reflux disease) Esophageal reflux Anemia, unspecified- Primary History of peptic ulcer Personal history of peptic ulcer disease Rheumatoid arthritis involving multiple sites with positive rheumatoid factor (HCC)- Primary Anemia due to other cause Screening mammogram for high-risk patient Keratoconjunctivitis sicca, in Sjogren's syndrome (HCC) Sicca syndrome Recurrent major depression in partial remission (HCC) Major depressive disorder, recurrent episode, in partial or unspecified remission Bunion, right Bunion Recurrent major depression in partial remission (HCC)- Primary Major depressive disorder, recurrent episode, in partial or unspecified remission Rheumatoid arthritis involving multiple sites with positive rheumatoid factor (HCC) Left-sided carotid artery disease (HCC) Vitamin D deficiency Unspecified vitamin D deficiency Iron 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) Gastroesophageal reflux disease without esophagitis Esophageal reflux Morbid obesity, unspecified obesity type (HCC) Recurrent major depressive disorder, in partial remission (HCC) Hospital discharge follow-up- Primary Other follow-up examination Rheumatoid arthritis involving multiple sites with positive rheumatoid factor (HCC) Vitamin D deficiency Unspecified vitamin D deficiency Occlusion of left carotid artery Occlusion and stenosis of carotid artery without mention of cerebral infarction Recurrent major depressive disorder, in partial remission (HCC) Left-sided carotid artery disease (HCC) Encounter for screening mammogram for malignant neoplasm of breast Other screening mammogram Malaise and fatigue Other malaise and fatigue Iron deficiency Iron deficiency anemia, unspecified SOB (shortness of breath) Shortness of breath Anemia, unspecified type- Primary Rheumatoid arthritis involving multiple sites with positive rheumatoid factor (HCC) Need for vaccination Need for prophylactic vaccination and inoculation against unspecified single disease Fibromyalgia Mylagia and myositis, unspecified BPPV (benign paroxysmal positional vertigo), bilateral Osteoporosis Osteoporosis, unspecified Anemia, unspecified type- Primary 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, right Encounter for screening mammogram for high-risk patient Osteoporosis without current pathological fracture, unspecified osteoporosis type Mixed hyperlipidemia Morbid obesity, unspecified obesity type (HCC) SOB (shortness of breath) Shortness of breath Iron malabsorption Other specified intestinal malabsorption Pre-operative examination- Primary Preoperative examination, unspecified Acute medial meniscus tear of right knee, subsequent encounter Chronic diastolic CHF (congestive heart failure) (HCC) Chronic diastolic heart failure Essential hypertension Unspecified essential hypertension Hyperlipidemia with target LDL less than 130 Other and unspecified hyperlipidemia PVC's (premature ventricular contractions) Other premature beats TY (dyspnea on exertion) Other dyspnea and respiratory abnormality Stenosis of carotid artery, unspecified laterality Fibromyalgia Mylagia and myositis, unspecified Insomnia, unspecified type Chronic obstructive pulmonary disease, unspecified COPD type (HCC) GERD without esophagitis Esophageal reflux Iron deficiency anemia, unspecified iron deficiency anemia type Rheumatoid arthritis involving multiple sites, unspecified rheumatoid factor presence Other osteoporosis with current pathological fracture with malunion, subsequent encounter Mild episode of recurrent major depressive disorder (HCC) Anal cancer ([facility])- Primary Malignant neoplasm of anus, unspecified site [facility] Establishing care with new doctor, encounter for- Primary Other reasons for seeking consultation Breast screening, unspecified Rheumatoid arthritis Fibromyalgia Mylagia and myositis, unspecified Depression Depressive disorder, not elsewhere classified Asthma (HCC) Unspecified asthma Routine health maintenance Routine general medical examination at a health care facility Abdominal pain Abdominal pain, unspecified site Mycoplasma pneumonia- Primary Pneumonia due to Mycoplasma pneumoniae Asthma (HCC) Unspecified asthma Abdominal pain Abdominal pain, unspecified site Rheumatoid arthritis(714.0) Rheumatoid arthritis Fibromyalgia Mylagia and myositis, unspecified Rheumatoid arthritis(714.0)- Primary Rheumatoid arthritis Carotid artery disease Unspecified disorders of arteries and arterioles Mycoplasma pneumonia Pneumonia due to Mycoplasma pneumoniae Fibromyalgia- Primary Mylagia and myositis, unspecified Need for prophylactic vaccination and inoculation against influenza Hyperlipidemia LDL goal < 130 Other and unspecified hyperlipidemia Asthma (HCC) Unspecified asthma Depression Depressive disorder, not elsewhere classified Fracture of triquetrum of left wrist, closed Closed fracture of triquetral (cuneiform) bone of wrist Rheumatoid arthritis(714.0) Rheumatoid arthritis Routine health maintenance Routine general medical examination at a health care facility Routine adult health maintenance Routine general medical examination at a health care facility Carotid artery disease- Primary Unspecified disorders of arteries and arterioles Depression Depressive disorder, not elsewhere classified Fibromyalgia Mylagia and myositis, unspecified Asthma (HCC) Unspecified asthma Rheumatoid arthritis(714.0) Rheumatoid arthritis Insomnia Insomnia, unspecified Hyperlipidemia LDL goal < 130 Other and unspecified hyperlipidemia Carotid artery disease- Primary Unspecified disorders of arteries and arterioles Rheumatoid arthritis(714.0) Rheumatoid arthritis Fibromyalgia Mylagia and myositis, unspecified Depression Depressive disorder, not elsewhere classified Asthma (HCC) Unspecified asthma Hyperlipidemia LDL goal < 130 Other and unspecified hyperlipidemia GERD (gastroesophageal reflux disease) Esophageal reflux Anemia, unspecified- Primary History of peptic ulcer Personal history of peptic ulcer disease Rheumatoid arthritis involving multiple sites with positive rheumatoid factor (HCC)- Primary Anemia due to other cause Screening mammogram for high-risk patient Keratoconjunctivitis sicca, in Sjogren's syndrome (HCC) Sicca syndrome Recurrent major depression in partial remission Major depressive disorder, recurrent episode, in partial or unspecified remission Bunion, right Bunion Recurrent major depression in partial remission- Primary Major depressive disorder, recurrent episode, in partial or unspecified remission Rheumatoid arthritis involving multiple sites with positive rheumatoid factor (HCC) Left-sided carotid artery disease Vitamin D deficiency Unspecified vitamin D deficiency Iron 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) Gastroesophageal reflux disease without esophagitis Esophageal reflux Morbid obesity, unspecified obesity type (HCC) Recurrent major depressive disorder, in partial remission Hospital discharge follow-up- Primary Other follow-up examination Rheumatoid arthritis involving multiple sites with positive rheumatoid factor (HCC) Vitamin D deficiency Unspecified vitamin D deficiency Occlusion of left carotid artery Occlusion and stenosis of carotid artery without mention of cerebral infarction Recurrent major depressive disorder, in partial remission Left-sided carotid artery disease Encounter for screening mammogram for malignant neoplasm of breast Other screening mammogram Malaise and fatigue Other malaise and fatigue Iron deficiency Iron deficiency anemia, unspecified SOB (shortness of breath) Shortness of breath Anemia, unspecified type- Primary Rheumatoid arthritis involving multiple sites with positive rheumatoid factor (HCC) Need for vaccination Need for prophylactic vaccination and inoculation against unspecified single disease Fibromyalgia Mylagia and myositis, unspecified BPPV (benign paroxysmal positional vertigo), bilateral Osteoporosis Osteoporosis, unspecified Anemia, unspecified type- Primary 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, right Encounter for screening mammogram for high-risk patient Osteoporosis without current pathological fracture, unspecified osteoporosis type Mixed hyperlipidemia Morbid obesity, unspecified obesity type (HCC) SOB (shortness of breath) Shortness of breath Iron malabsorption (HCC) Other specified intestinal malabsorption Pre-operative examination- Primary Preoperative examination, unspecified Acute medial meniscus tear of right knee, subsequent encounter Chronic diastolic CHF (congestive heart failure) (HCC) Chronic diastolic heart failure Essential hypertension Unspecified essential hypertension Hyperlipidemia with target LDL less than 130 Other and unspecified hyperlipidemia PVC's (premature ventricular contractions) Other premature beats TY (dyspnea on exertion) Other dyspnea and respiratory abnormality Stenosis of carotid artery, unspecified laterality Fibromyalgia Mylagia and myositis, unspecified Insomnia, unspecified type Chronic obstructive pulmonary disease, unspecified COPD type (HCC) GERD without esophagitis Esophageal reflux Iron deficiency anemia, unspecified iron deficiency anemia type Rheumatoid arthritis involving multiple sites, unspecified rheumatoid factor presence Other osteoporosis with current pathological fracture with malunion, subsequent encounter Mild episode of recurrent major depressive disorder Anal cancer (HCC)- Primary Malignant neoplasm of anus, unspecified site Urinary urgency Urgency of urination Anal cancer ([facility]) Malignant neoplasm of anus, unspecified site [facility] Establishing care with new doctor, encounter for- Primary Other reasons for seeking consultation Breast screening, unspecified Rheumatoid arthritis Fibromyalgia Mylagia and myositis, unspecified Depression Depressive disorder, not elsewhere classified Asthma (HCC) Unspecified asthma Routine health maintenance Routine general medical examination at a health care facility Abdominal pain Abdominal pain, unspecified site Mycoplasma pneumonia- Primary Pneumonia due to Mycoplasma pneumoniae Asthma (HCC) Unspecified asthma Abdominal pain Abdominal pain, unspecified site Rheumatoid arthritis(714.0) Rheumatoid arthritis Fibromyalgia Mylagia and myositis, unspecified Rheumatoid arthritis(714.0)- Primary Rheumatoid arthritis Carotid artery disease Unspecified disorders of arteries and arterioles Mycoplasma pneumonia Pneumonia due to Mycoplasma pneumoniae Fibromyalgia- Primary Mylagia and myositis, unspecified Need for prophylactic vaccination and inoculation against influenza Hyperlipidemia LDL goal < 130 Other and unspecified hyperlipidemia Asthma (HCC) Unspecified asthma Depression Depressive disorder, not elsewhere classified Fracture of triquetrum of left wrist, closed Closed fracture of triquetral (cuneiform) bone of wrist Rheumatoid arthritis(714.0) Rheumatoid arthritis Routine health maintenance Routine general medical examination at a health care facility Routine adult health maintenance Routine general medical examination at a health care facility Carotid artery disease- Primary Unspecified disorders of arteries and arterioles Depression Depressive disorder, not elsewhere classified Fibromyalgia Mylagia and myositis, unspecified Asthma (HCC) Unspecified asthma Rheumatoid arthritis(714.0) Rheumatoid arthritis Insomnia Insomnia, unspecified Hyperlipidemia LDL goal < 130 Other and unspecified hyperlipidemia Carotid artery disease- Primary Unspecified disorders of arteries and arterioles Rheumatoid arthritis(714.0) Rheumatoid arthritis Fibromyalgia Mylagia and myositis, unspecified Depression Depressive disorder, not elsewhere classified Asthma (HCC) Unspecified asthma Hyperlipidemia LDL goal < 130 Other and unspecified hyperlipidemia GERD (gastroesophageal reflux disease) Esophageal reflux Anemia, unspecified- Primary History of peptic ulcer Personal history of peptic ulcer disease Rheumatoid arthritis involving multiple sites with positive rheumatoid factor (HCC)- Primary Anemia due to other cause Screening mammogram for high-risk patient Keratoconjunctivitis sicca, in Sjogren's syndrome (HCC) Sicca syndrome Recurrent major depression in partial remission Major depressive disorder, recurrent episode, in partial or unspecified remission Bunion, right Bunion Recurrent major depression in partial remission- Primary Major depressive disorder, recurrent episode, in partial or unspecified remission Rheumatoid arthritis involving multiple sites with positive rheumatoid factor (HCC) Left-sided carotid artery disease Vitamin D deficiency Unspecified vitamin D deficiency Iron 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) Gastroesophageal reflux disease without esophagitis Esophageal reflux Morbid obesity, unspecified obesity type (HCC) Recurrent major depressive disorder, in partial remission Hospital discharge follow-up- Primary Other follow-up examination Rheumatoid arthritis involving multiple sites with positive rheumatoid factor (HCC) Vitamin D deficiency Unspecified vitamin D deficiency Occlusion of left carotid artery Occlusion and stenosis of carotid artery without mention of cerebral infarction Recurrent major depressive disorder, in partial remission Left-sided carotid artery disease Encounter for screening mammogram for malignant neoplasm of breast Other screening mammogram Malaise and fatigue Other malaise and fatigue Iron deficiency Iron deficiency anemia, unspecified SOB (shortness of breath) Shortness of breath Anemia, unspecified type- Primary Rheumatoid arthritis involving multiple sites with positive rheumatoid factor (HCC) Need for vaccination Need for prophylactic vaccination and inoculation against unspecified single disease Fibromyalgia Mylagia and myositis, unspecified BPPV (benign paroxysmal positional vertigo), bilateral Osteoporosis Osteoporosis, unspecified Anemia, unspecified type- Primary 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, right Encounter for screening mammogram for high-risk patient Osteoporosis without current pathological fracture, unspecified osteoporosis type Mixed hyperlipidemia Morbid obesity, unspecified obesity type (HCC) SOB (shortness of breath) Shortness of breath Iron malabsorption (HCC) Other specified intestinal malabsorption Pre-operative examination- Primary Preoperative examination, unspecified Acute medial meniscus tear of right knee, subsequent encounter Chronic diastolic CHF (congestive heart failure) (HCC) Chronic diastolic heart failure Essential hypertension Unspecified essential hypertension Hyperlipidemia with target LDL less than 130 Other and unspecified hyperlipidemia PVC's (premature ventricular contractions) Other premature beats TY (dyspnea on exertion) Other dyspnea and respiratory abnormality Stenosis of carotid artery, unspecified laterality Fibromyalgia Mylagia and myositis, unspecified Insomnia, unspecified type Chronic obstructive pulmonary disease, unspecified COPD type (HCC) GERD without esophagitis Esophageal reflux Iron deficiency anemia, unspecified iron deficiency anemia type Rheumatoid arthritis involving multiple sites, unspecified rheumatoid factor presence Other osteoporosis with current pathological fracture with malunion, subsequent encounter Mild episode of recurrent major depressive disorder Anal cancer (HCC)- Primary Malignant neoplasm of anus, unspecified site Rheumatoid arthritis involving multiple sites with positive rheumatoid factor (HCC) Anal cancer (HCC) Malignant neoplasm of anus, unspecified site [facility] Establishing care with new doctor, encounter for- Primary Other reasons for seeking consultation Breast screening, unspecified Rheumatoid arthritis Fibromyalgia Mylagia and myositis, unspecified Depression Depressive disorder, not elsewhere classified Asthma (HCC) Unspecified asthma Routine health maintenance Routine general medical examination at a health care facility Abdominal pain Abdominal pain, unspecified site Mycoplasma pneumonia- Primary Pneumonia due to Mycoplasma pneumoniae Asthma (HCC) Unspecified asthma Abdominal pain Abdominal pain, unspecified site Rheumatoid arthritis(714.0) Rheumatoid arthritis Fibromyalgia Mylagia and myositis, unspecified Rheumatoid arthritis(714.0)- Primary Rheumatoid arthritis Carotid artery disease Unspecified disorders of arteries and arterioles Mycoplasma pneumonia Pneumonia due to Mycoplasma pneumoniae Fibromyalgia- Primary Mylagia and myositis, unspecified Need for prophylactic vaccination and inoculation against influenza Hyperlipidemia LDL goal < 130 Other and unspecified hyperlipidemia Asthma (HCC) Unspecified asthma Depression Depressive disorder, not elsewhere classified Fracture of triquetrum of left wrist, closed Closed fracture of triquetral (cuneiform) bone of wrist Rheumatoid arthritis(714.0) Rheumatoid arthritis Routine health maintenance Routine general medical examination at a health care facility Routine adult health maintenance Routine general medical examination at a health care facility Carotid artery disease- Primary Unspecified disorders of arteries and arterioles Depression Depressive disorder, not elsewhere classified Fibromyalgia Mylagia and myositis, unspecified Asthma (HCC) Unspecified asthma Rheumatoid arthritis(714.0) Rheumatoid arthritis Insomnia Insomnia, unspecified Hyperlipidemia LDL goal < 130 Other and unspecified hyperlipidemia Carotid artery disease- Primary Unspecified disorders of arteries and arterioles Rheumatoid arthritis(714.0) Rheumatoid arthritis Fibromyalgia Mylagia and myositis, unspecified Depression Depressive disorder, not elsewhere classified Asthma (HCC) Unspecified asthma Hyperlipidemia LDL goal < 130 Other and unspecified hyperlipidemia GERD (gastroesophageal reflux disease) Esophageal reflux Anemia, unspecified- Primary History of peptic ulcer Personal history of peptic ulcer disease Rheumatoid arthritis involving multiple sites with positive rheumatoid factor (HCC)- Primary Anemia due to other cause Screening mammogram for high-risk patient Keratoconjunctivitis sicca, in Sjogren's syndrome (HCC) Sicca syndrome Recurrent major depression in partial remission Major depressive disorder, recurrent episode, in partial or unspecified remission Bunion, right Bunion Recurrent major depression in partial remission- Primary Major depressive disorder, recurrent episode, in partial or unspecified remission Rheumatoid arthritis involving multiple sites with positive rheumatoid factor (HCC) Left-sided carotid artery disease Vitamin D deficiency Unspecified vitamin D deficiency Iron 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) Gastroesophageal reflux disease without esophagitis Esophageal reflux Morbid obesity, unspecified obesity type (HCC) Recurrent major depressive disorder, in partial remission Hospital discharge follow-up- Primary Other follow-up examination Rheumatoid arthritis involving multiple sites with positive rheumatoid factor (HCC) Vitamin D deficiency Unspecified vitamin D deficiency Occlusion of left carotid artery Occlusion and stenosis of carotid artery without mention of cerebral infarction Recurrent major depressive disorder, in partial remission Left-sided carotid artery disease Encounter for screening mammogram for malignant neoplasm of breast Other screening mammogram Malaise and fatigue Other malaise and fatigue Iron deficiency Iron deficiency anemia, unspecified SOB (shortness of breath) Shortness of breath Anemia, unspecified type- Primary Rheumatoid arthritis involving multiple sites with positive rheumatoid factor (HCC) Need for vaccination Need for prophylactic vaccination and inoculation against unspecified single disease Fibromyalgia Mylagia and myositis, unspecified BPPV (benign paroxysmal positional vertigo), bilateral Osteoporosis Osteoporosis, unspecified Anemia, unspecified type- Primary 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, right Encounter for screening mammogram for high-risk patient Osteoporosis without current pathological fracture, unspecified osteoporosis type Mixed hyperlipidemia Morbid obesity, unspecified obesity type (HCC) SOB (shortness of breath) Shortness of breath Iron malabsorption (HCC) Other specified intestinal malabsorption Pre-operative examination- Primary Preoperative examination, unspecified Acute medial meniscus tear of right knee, subsequent encounter Chronic diastolic CHF (congestive heart failure) (HCC) Chronic diastolic heart failure Essential hypertension Unspecified essential hypertension Hyperlipidemia with target LDL less than 130 Other and unspecified hyperlipidemia PVC's (premature ventricular contractions) Other premature beats TY (dyspnea on exertion) Other dyspnea and respiratory abnormality Stenosis of carotid artery, unspecified laterality Fibromyalgia Mylagia and myositis, unspecified Insomnia, unspecified type Chronic obstructive pulmonary disease, unspecified COPD type (HCC) GERD without esophagitis Esophageal reflux Iron deficiency anemia, unspecified iron deficiency anemia type Rheumatoid arthritis involving multiple sites, unspecified rheumatoid factor presence Other osteoporosis with current pathological fracture with malunion, subsequent encounter Mild episode of recurrent major depressive disorder Anal cancer (HCC)- Primary Malignant neoplasm of anus, unspecified site Anal cancer (HCC) Malignant neoplasm of anus, unspecified site [facility] Establishing care with new doctor, encounter for- Primary Other reasons for seeking consultation Breast screening, unspecified Rheumatoid arthritis Fibromyalgia Mylagia and myositis, unspecified Depression Depressive disorder, not elsewhere classified Asthma (HCC) Unspecified asthma Routine health maintenance Routine general medical examination at a health care facility Abdominal pain Abdominal pain, unspecified site Mycoplasma pneumonia- Primary Pneumonia due to Mycoplasma pneumoniae Asthma (HCC) Unspecified asthma Abdominal pain Abdominal pain, unspecified site Rheumatoid arthritis(714.0) Rheumatoid arthritis Fibromyalgia Mylagia and myositis, unspecified Rheumatoid arthritis(714.0)- Primary Rheumatoid arthritis Carotid artery disease Unspecified disorders of arteries and arterioles Mycoplasma pneumonia Pneumonia due to Mycoplasma pneumoniae Fibromyalgia- Primary Mylagia and myositis, unspecified Need for prophylactic vaccination and inoculation against influenza Hyperlipidemia LDL goal < 130 Other and unspecified hyperlipidemia Asthma (HCC) Unspecified asthma Depression Depressive disorder, not elsewhere classified Fracture of triquetrum of left wrist, closed Closed fracture of triquetral (cuneiform) bone of wrist Rheumatoid arthritis(714.0) Rheumatoid arthritis Routine health maintenance Routine general medical examination at a health care facility Routine adult health maintenance Routine general medical examination at a health care facility Carotid artery disease- Primary Unspecified disorders of arteries and arterioles Depression Depressive disorder, not elsewhere classified Fibromyalgia Mylagia and myositis, unspecified Asthma (HCC) Unspecified asthma Rheumatoid arthritis(714.0) Rheumatoid arthritis Insomnia Insomnia, unspecified Hyperlipidemia LDL goal < 130 Other and unspecified hyperlipidemia Carotid artery disease- Primary Unspecified disorders of arteries and arterioles Rheumatoid arthritis(714.0) Rheumatoid arthritis Fibromyalgia Mylagia and myositis, unspecified Depression Depressive disorder, not elsewhere classified Asthma (HCC) Unspecified asthma Hyperlipidemia LDL goal < 130 Other and unspecified hyperlipidemia GERD (gastroesophageal reflux disease) Esophageal reflux Anemia, unspecified- Primary History of peptic ulcer Personal history of peptic ulcer disease Rheumatoid arthritis involving multiple sites with positive rheumatoid factor (HCC)- Primary Anemia due to other cause Screening mammogram for high-risk patient Keratoconjunctivitis sicca, in Sjogren's syndrome (HCC) Sicca syndrome Recurrent major depression in partial remission Major depressive disorder, recurrent episode, in partial or unspecified remission Bunion, right Bunion Recurrent major depression in partial remission- Primary Major depressive disorder, recurrent episode, in partial or unspecified remission Rheumatoid arthritis involving multiple sites with positive rheumatoid factor (HCC) Left-sided carotid artery disease Vitamin D deficiency Unspecified vitamin D deficiency Iron 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) Gastroesophageal reflux disease without esophagitis Esophageal reflux Morbid obesity, unspecified obesity type (HCC) Recurrent major depressive disorder, in partial remission Hospital discharge follow-up- Primary Other follow-up examination Rheumatoid arthritis involving multiple sites with positive rheumatoid factor (HCC) Vitamin D deficiency Unspecified vitamin D deficiency Occlusion of left carotid artery Occlusion and stenosis of carotid artery without mention of cerebral infarction Recurrent major depressive disorder, in partial remission Left-sided carotid artery disease Encounter for screening mammogram for malignant neoplasm of breast Other screening mammogram Malaise and fatigue Other malaise and fatigue Iron deficiency Iron deficiency anemia, unspecified SOB (shortness of breath) Shortness of breath Anemia, unspecified type- Primary Rheumatoid arthritis involving multiple sites with positive rheumatoid factor (HCC) Need for vaccination Need for prophylactic vaccination and inoculation against unspecified single disease Fibromyalgia Mylagia and myositis, unspecified BPPV (benign paroxysmal positional vertigo), bilateral Osteoporosis Osteoporosis, unspecified Anemia, unspecified type- Primary 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, right Encounter for screening mammogram for high-risk patient Osteoporosis without current pathological fracture, unspecified osteoporosis type Mixed hyperlipidemia Morbid obesity, unspecified obesity type (HCC) SOB (shortness of breath) Shortness of breath Iron malabsorption (HCC) Other specified intestinal malabsorption Pre-operative examination- Primary Preoperative examination, unspecified Acute medial meniscus tear of right knee, subsequent encounter Chronic diastolic CHF (congestive heart failure) (HCC) Chronic diastolic heart failure Essential hypertension Unspecified essential hypertension Hyperlipidemia with target LDL less than 130 Other and unspecified hyperlipidemia PVC's (premature ventricular contractions) Other premature beats TY (dyspnea on exertion) Other dyspnea and respiratory abnormality Stenosis of carotid artery, unspecified laterality Fibromyalgia Mylagia and myositis, unspecified Insomnia, unspecified type Chronic obstructive pulmonary disease, unspecified COPD type (HCC) GERD without esophagitis Esophageal reflux Iron deficiency anemia, unspecified iron deficiency anemia type Rheumatoid arthritis involving multiple sites, unspecified rheumatoid factor presence Other osteoporosis with current pathological fracture with malunion, subsequent encounter Mild episode of recurrent major depressive disorder Anal cancer (HCC)- Primary Malignant neoplasm of anus, unspecified site Iron 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) Chemotherapy induced nausea and vomiting Nausea with vomiting Bladder spasm Other specified disorders of bladder [facility] Establishing care with new doctor, encounter for- Primary Other reasons for seeking consultation Breast screening, unspecified Rheumatoid arthritis Fibromyalgia Mylagia and myositis, unspecified Depression Depressive disorder, not elsewhere classified Asthma (HCC) Unspecified asthma Routine health maintenance Routine general medical examination at a health care facility Abdominal pain Abdominal pain, unspecified site Mycoplasma pneumonia- Primary Pneumonia due to Mycoplasma pneumoniae Asthma (HCC) Unspecified asthma Abdominal pain Abdominal pain, unspecified site Rheumatoid arthritis(714.0) Rheumatoid arthritis Fibromyalgia Mylagia and myositis, unspecified Rheumatoid arthritis(714.0)- Primary Rheumatoid arthritis Carotid artery disease Unspecified disorders of arteries and arterioles Mycoplasma pneumonia Pneumonia due to Mycoplasma pneumoniae Fibromyalgia- Primary Mylagia and myositis, unspecified Need for prophylactic vaccination and inoculation against influenza Hyperlipidemia LDL goal < 130 Other and unspecified hyperlipidemia Asthma (HCC) Unspecified asthma Depression Depressive disorder, not elsewhere classified Fracture of triquetrum of left wrist, closed Closed fracture of triquetral (cuneiform) bone of wrist Rheumatoid arthritis(714.0) Rheumatoid arthritis Routine health maintenance Routine general medical examination at a health care facility Routine adult health maintenance Routine general medical examination at a health care facility Carotid artery disease- Primary Unspecified disorders of arteries and arterioles Depression Depressive disorder, not elsewhere classified Fibromyalgia Mylagia and myositis, unspecified Asthma (HCC) Unspecified asthma Rheumatoid arthritis(714.0) Rheumatoid arthritis Insomnia Insomnia, unspecified Hyperlipidemia LDL goal < 130 Other and unspecified hyperlipidemia Carotid artery disease- Primary Unspecified disorders of arteries and arterioles Rheumatoid arthritis(714.0) Rheumatoid arthritis Fibromyalgia Mylagia and myositis, unspecified Depression Depressive disorder, not elsewhere classified Asthma (HCC) Unspecified asthma Hyperlipidemia LDL goal < 130 Other and unspecified hyperlipidemia GERD (gastroesophageal reflux disease) Esophageal reflux Anemia, unspecified- Primary History of peptic ulcer Personal history of peptic ulcer disease Rheumatoid arthritis involving multiple sites with positive rheumatoid factor (HCC)- Primary Anemia due to other cause Screening mammogram for high-risk patient Keratoconjunctivitis sicca, in Sjogren's syndrome (HCC) Sicca syndrome Recurrent major depression in partial remission Major depressive disorder, recurrent episode, in partial or unspecified remission Bunion, right Bunion Recurrent major depression in partial remission- Primary Major depressive disorder, recurrent episode, in partial or unspecified remission Rheumatoid arthritis involving multiple sites with positive rheumatoid factor (HCC) Left-sided carotid artery disease Vitamin D deficiency Unspecified vitamin D deficiency Iron 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) Gastroesophageal reflux disease without esophagitis Esophageal reflux Morbid obesity, unspecified obesity type (HCC) Recurrent major depressive disorder, in partial remission Hospital discharge follow-up- Primary Other follow-up examination Rheumatoid arthritis involving multiple sites with positive rheumatoid factor (HCC) Vitamin D deficiency Unspecified vitamin D deficiency Occlusion of left carotid artery Occlusion and stenosis of carotid artery without mention of cerebral infarction Recurrent major depressive disorder, in partial remission Left-sided carotid artery disease Encounter for screening mammogram for malignant neoplasm of breast Other screening mammogram Malaise and fatigue Other malaise and fatigue Iron deficiency Iron deficiency anemia, unspecified SOB (shortness of breath) Shortness of breath Anemia, unspecified type- Primary Rheumatoid arthritis involving multiple sites with positive rheumatoid factor (HCC) Need for vaccination Need for prophylactic vaccination and inoculation against unspecified single disease Fibromyalgia Mylagia and myositis, unspecified BPPV (benign paroxysmal positional vertigo), bilateral Osteoporosis Osteoporosis, unspecified Anemia, unspecified type- Primary 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, right Encounter for screening mammogram for high-risk patient Osteoporosis without current pathological fracture, unspecified osteoporosis type Mixed hyperlipidemia Morbid obesity, unspecified obesity type (HCC) SOB (shortness of breath) Shortness of breath Iron malabsorption (HCC) Other specified intestinal malabsorption Pre-operative examination- Primary Preoperative examination, unspecified Acute medial meniscus tear of right knee, subsequent encounter Chronic diastolic CHF (congestive heart failure) (HCC) Chronic diastolic heart failure Essential hypertension Unspecified essential hypertension Hyperlipidemia with target LDL less than 130 Other and unspecified hyperlipidemia PVC's (premature ventricular contractions) Other premature beats TY (dyspnea on exertion) Other dyspnea and respiratory abnormality Stenosis of carotid artery, unspecified laterality Fibromyalgia Mylagia and myositis, unspecified Insomnia, unspecified type Chronic obstructive pulmonary disease, unspecified COPD type (HCC) GERD without esophagitis Esophageal reflux Iron deficiency anemia, unspecified iron deficiency anemia type Rheumatoid arthritis involving multiple sites, unspecified rheumatoid factor presence Other osteoporosis with current pathological fracture with malunion, subsequent encounter Mild episode of recurrent major depressive disorder Anal cancer ([facility])- Primary Malignant neoplasm of anus, unspecified site [facility] Establishing care with new doctor, encounter for- Primary Other reasons for seeking consultation Breast screening, unspecified Rheumatoid arthritis Fibromyalgia Mylagia and myositis, unspecified Depression Depressive disorder, not elsewhere classified Asthma (HCC) Unspecified asthma Routine health maintenance Routine general medical examination at a health care facility Abdominal pain Abdominal pain, unspecified site Mycoplasma pneumonia- Primary Pneumonia due to Mycoplasma pneumoniae Asthma (HCC) Unspecified asthma Abdominal pain Abdominal pain, unspecified site Rheumatoid arthritis(714.0) Rheumatoid arthritis Fibromyalgia Mylagia and myositis, unspecified Rheumatoid arthritis(714.0)- Primary Rheumatoid arthritis Carotid artery disease Unspecified disorders of arteries and arterioles Mycoplasma pneumonia Pneumonia due to Mycoplasma pneumoniae Fibromyalgia- Primary Mylagia and myositis, unspecified Need for prophylactic vaccination and inoculation against influenza Hyperlipidemia LDL goal < 130 Other and unspecified hyperlipidemia Asthma (HCC) Unspecified asthma Depression Depressive disorder, not elsewhere classified Fracture of triquetrum of left wrist, closed Closed fracture of triquetral (cuneiform) bone of wrist Rheumatoid arthritis(714.0) Rheumatoid arthritis Routine health maintenance Routine general medical examination at a health care facility Routine adult health maintenance Routine general medical examination at a health care facility Carotid artery disease- Primary Unspecified disorders of arteries and arterioles Depression Depressive disorder, not elsewhere classified Fibromyalgia Mylagia and myositis, unspecified Asthma (HCC) Unspecified asthma Rheumatoid arthritis(714.0) Rheumatoid arthritis Insomnia Insomnia, unspecified Hyperlipidemia LDL goal < 130 Other and unspecified hyperlipidemia Carotid artery disease- Primary Unspecified disorders of arteries and arterioles Rheumatoid arthritis(714.0) Rheumatoid arthritis Fibromyalgia Mylagia and myositis, unspecified Depression Depressive disorder, not elsewhere classified Asthma (HCC) Unspecified asthma Hyperlipidemia LDL goal < 130 Other and unspecified hyperlipidemia GERD (gastroesophageal reflux disease) Esophageal reflux Anemia, unspecified- Primary History of peptic ulcer Personal history of peptic ulcer disease Rheumatoid arthritis involving multiple sites with positive rheumatoid factor (HCC)- Primary Anemia due to other cause Screening mammogram for high-risk patient Keratoconjunctivitis sicca, in Sjogren's syndrome (HCC) Sicca syndrome Recurrent major depression in partial remission Major depressive disorder, recurrent episode, in partial or unspecified remission Bunion, right Bunion Recurrent major depression in partial remission- Primary Major depressive disorder, recurrent episode, in partial or unspecified remission Rheumatoid arthritis involving multiple sites with positive rheumatoid factor (HCC) Left-sided carotid artery disease Vitamin D deficiency Unspecified vitamin D deficiency Iron 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) Gastroesophageal reflux disease without esophagitis Esophageal reflux Morbid obesity, unspecified obesity type (HCC) Recurrent major depressive disorder, in partial remission Hospital discharge follow-up- Primary Other follow-up examination Rheumatoid arthritis involving multiple sites with positive rheumatoid factor (HCC) Vitamin D deficiency Unspecified vitamin D deficiency Occlusion of left carotid artery Occlusion and stenosis of carotid artery without mention of cerebral infarction Recurrent major depressive disorder, in partial remission Left-sided carotid artery disease Encounter for screening mammogram for malignant neoplasm of breast Other screening mammogram Malaise and fatigue Other malaise and fatigue Iron deficiency Iron deficiency anemia, unspecified SOB (shortness of breath) Shortness of breath Anemia, unspecified type- Primary Rheumatoid arthritis involving multiple sites with positive rheumatoid factor (HCC) Need for vaccination Need for prophylactic vaccination and inoculation against unspecified single disease Fibromyalgia Mylagia and myositis, unspecified BPPV (benign paroxysmal positional vertigo), bilateral Osteoporosis Osteoporosis, unspecified Anemia, unspecified type- Primary 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, right Encounter for screening mammogram for high-risk patient Osteoporosis without current pathological fracture, unspecified osteoporosis type Mixed hyperlipidemia Morbid obesity, unspecified obesity type (HCC) SOB (shortness of breath) Shortness of breath Iron malabsorption (HCC) Other specified intestinal malabsorption Pre-operative examination- Primary Preoperative examination, unspecified Acute medial meniscus tear of right knee, subsequent encounter Chronic diastolic CHF (congestive heart failure) (HCC) Chronic diastolic heart failure Essential hypertension Unspecified essential hypertension Hyperlipidemia with target LDL less than 130 Other and unspecified hyperlipidemia PVC's (premature ventricular contractions) Other premature beats TY (dyspnea on exertion) Other dyspnea and respiratory abnormality Stenosis of carotid artery, unspecified laterality Fibromyalgia Mylagia and myositis, unspecified Insomnia, unspecified type Chronic obstructive pulmonary disease, unspecified COPD type (HCC) GERD without esophagitis Esophageal reflux Iron deficiency anemia, unspecified iron deficiency anemia type Rheumatoid arthritis involving multiple sites, unspecified rheumatoid factor presence Other osteoporosis with current pathological fracture with malunion, subsequent encounter Mild episode of recurrent major depressive disorder Anal cancer ([facility])- Primary Malignant neoplasm of anus, unspecified site [facility] Establishing care with new doctor, encounter for- Primary Other reasons for seeking consultation Breast screening, unspecified Rheumatoid arthritis Fibromyalgia Mylagia and myositis, unspecified Depression Depressive disorder, not elsewhere classified Asthma (HCC) Unspecified asthma Routine health maintenance Routine general medical examination at a health care facility Abdominal pain Abdominal pain, unspecified site Mycoplasma pneumonia- Primary Pneumonia due to Mycoplasma pneumoniae Asthma (HCC) Unspecified asthma Abdominal pain Abdominal pain, unspecified site Rheumatoid arthritis(714.0) Rheumatoid arthritis Fibromyalgia Mylagia and myositis, unspecified Rheumatoid arthritis(714.0)- Primary Rheumatoid arthritis Carotid artery disease Unspecified disorders of arteries and arterioles Mycoplasma pneumonia Pneumonia due to Mycoplasma pneumoniae Fibromyalgia- Primary Mylagia and myositis, unspecified Need for prophylactic vaccination and inoculation against influenza Hyperlipidemia LDL goal < 130 Other and unspecified hyperlipidemia Asthma (HCC) Unspecified asthma Depression Depressive disorder, not elsewhere classified Fracture of triquetrum of left wrist, closed Closed fracture of triquetral (cuneiform) bone of wrist Rheumatoid arthritis(714.0) Rheumatoid arthritis Routine health maintenance Routine general medical examination at a health care facility Routine adult health maintenance Routine general medical examination at a health care facility Carotid artery disease- Primary Unspecified disorders of arteries and arterioles Depression Depressive disorder, not elsewhere classified Fibromyalgia Mylagia and myositis, unspecified Asthma (HCC) Unspecified asthma Rheumatoid arthritis(714.0) Rheumatoid arthritis Insomnia Insomnia, unspecified Hyperlipidemia LDL goal < 130 Other and unspecified hyperlipidemia Carotid artery disease- Primary Unspecified disorders of arteries and arterioles Rheumatoid arthritis(714.0) Rheumatoid arthritis Fibromyalgia Mylagia and myositis, unspecified Depression Depressive disorder, not elsewhere classified Asthma (HCC) Unspecified asthma Hyperlipidemia LDL goal < 130 Other and unspecified hyperlipidemia GERD (gastroesophageal reflux disease) Esophageal reflux Anemia, unspecified- Primary History of peptic ulcer Personal history of peptic ulcer disease Rheumatoid arthritis involving multiple sites with positive rheumatoid factor (HCC)- Primary Anemia due to other cause Screening mammogram for high-risk patient Keratoconjunctivitis sicca, in Sjogren's syndrome (HCC) Sicca syndrome Recurrent major depression in partial remission Major depressive disorder, recurrent episode, in partial or unspecified remission Bunion, right Bunion Recurrent major depression in partial remission- Primary Major depressive disorder, recurrent episode, in partial or unspecified remission Rheumatoid arthritis involving multiple sites with positive rheumatoid factor (HCC) Left-sided carotid artery disease Vitamin D deficiency Unspecified vitamin D deficiency Iron 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) Gastroesophageal reflux disease without esophagitis Esophageal reflux Morbid obesity, unspecified obesity type (HCC) Recurrent major depressive disorder, in partial remission Hospital discharge follow-up- Primary Other follow-up examination Rheumatoid arthritis involving multiple sites with positive rheumatoid factor (HCC) Vitamin D deficiency Unspecified vitamin D deficiency Occlusion of left carotid artery Occlusion and stenosis of carotid artery without mention of cerebral infarction Recurrent major depressive disorder, in partial remission Left-sided carotid artery disease Encounter for screening mammogram for malignant neoplasm of breast Other screening mammogram Malaise and fatigue Other malaise and fatigue Iron deficiency Iron deficiency anemia, unspecified SOB (shortness of breath) Shortness of breath Anemia, unspecified type- Primary Rheumatoid arthritis involving multiple sites with positive rheumatoid factor (HCC) Need for vaccination Need for prophylactic vaccination and inoculation against unspecified single disease Fibromyalgia Mylagia and myositis, unspecified BPPV (benign paroxysmal positional vertigo), bilateral Osteoporosis Osteoporosis, unspecified Anemia, unspecified type- Primary 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, right Encounter for screening mammogram for high-risk patient Osteoporosis without current pathological fracture, unspecified osteoporosis type Mixed hyperlipidemia Morbid obesity, unspecified obesity type (HCC) SOB (shortness of breath) Shortness of breath Iron malabsorption (HCC) Other specified intestinal malabsorption Pre-operative examination- Primary Preoperative examination, unspecified Acute medial meniscus tear of right knee, subsequent encounter Chronic diastolic CHF (congestive heart failure) (HCC) Chronic diastolic heart failure Essential hypertension Unspecified essential hypertension Hyperlipidemia with target LDL less than 130 Other and unspecified hyperlipidemia PVC's (premature ventricular contractions) Other premature beats TY (dyspnea on exertion) Other dyspnea and respiratory abnormality Stenosis of carotid artery, unspecified laterality Fibromyalgia Mylagia and myositis, unspecified Insomnia, unspecified type Chronic obstructive pulmonary disease, unspecified COPD type (HCC) GERD without esophagitis Esophageal reflux Iron deficiency anemia, unspecified iron deficiency anemia type Rheumatoid arthritis involving multiple sites, unspecified rheumatoid factor presence Other osteoporosis with current pathological fracture with malunion, subsequent encounter Mild episode of recurrent major depressive disorder Anal cancer (HCC)- Primary Malignant neoplasm of anus, unspecified site [facility] Establishing care with new doctor, encounter for- Primary Other reasons for seeking consultation Breast screening, unspecified Rheumatoid arthritis Fibromyalgia Mylagia and myositis, unspecified Depression Depressive disorder, not elsewhere classified Asthma (HCC) Unspecified asthma Routine health maintenance Routine general medical examination at a health care facility Abdominal pain Abdominal pain, unspecified site Mycoplasma pneumonia- Primary Pneumonia due to Mycoplasma pneumoniae Asthma (HCC) Unspecified asthma Abdominal pain Abdominal pain, unspecified site Rheumatoid arthritis(714.0) Rheumatoid arthritis Fibromyalgia Mylagia and myositis, unspecified Rheumatoid arthritis(714.0)- Primary Rheumatoid arthritis Carotid artery disease Unspecified disorders of arteries and arterioles Mycoplasma pneumonia Pneumonia due to Mycoplasma pneumoniae Fibromyalgia- Primary Mylagia and myositis, unspecified Need for prophylactic vaccination and inoculation against influenza Hyperlipidemia LDL goal < 130 Other and unspecified hyperlipidemia Asthma (HCC) Unspecified asthma Depression Depressive disorder, not elsewhere classified Fracture of triquetrum of left wrist, closed Closed fracture of triquetral (cuneiform) bone of wrist Rheumatoid arthritis(714.0) Rheumatoid arthritis Routine health maintenance Routine general medical examination at a health care facility Routine adult health maintenance Routine general medical examination at a health care facility Carotid artery disease- Primary Unspecified disorders of arteries and arterioles Depression Depressive disorder, not elsewhere classified Fibromyalgia Mylagia and myositis, unspecified Asthma (HCC) Unspecified asthma Rheumatoid arthritis(714.0) Rheumatoid arthritis Insomnia Insomnia, unspecified Hyperlipidemia LDL goal < 130 Other and unspecified hyperlipidemia Carotid artery disease- Primary Unspecified disorders of arteries and arterioles Rheumatoid arthritis(714.0) Rheumatoid arthritis Fibromyalgia Mylagia and myositis, unspecified Depression Depressive disorder, not elsewhere classified Asthma (HCC) Unspecified asthma Hyperlipidemia LDL goal < 130 Other and unspecified hyperlipidemia GERD (gastroesophageal reflux disease) Esophageal reflux Anemia, unspecified- Primary History of peptic ulcer Personal history of peptic ulcer disease Rheumatoid arthritis involving multiple sites with positive rheumatoid factor (HCC)- Primary Anemia due to other cause Screening mammogram for high-risk patient Keratoconjunctivitis sicca, in Sjogren's syndrome (HCC) Sicca syndrome Recurrent major depression in partial remission Major depressive disorder, recurrent episode, in partial or unspecified remission Bunion, right Bunion Recurrent major depression in partial remission- Primary Major depressive disorder, recurrent episode, in partial or unspecified remission Rheumatoid arthritis involving multiple sites with positive rheumatoid factor (HCC) Left-sided carotid artery disease Vitamin D deficiency Unspecified vitamin D deficiency Iron 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) Gastroesophageal reflux disease without esophagitis Esophageal reflux Morbid obesity, unspecified obesity type (HCC) Recurrent major depressive disorder, in partial remission Hospital discharge follow-up- Primary Other follow-up examination Rheumatoid arthritis involving multiple sites with positive rheumatoid factor (HCC) Vitamin D deficiency Unspecified vitamin D deficiency Occlusion of left carotid artery Occlusion and stenosis of carotid artery without mention of cerebral infarction Recurrent major depressive disorder, in partial remission Left-sided carotid artery disease Encounter for screening mammogram for malignant neoplasm of breast Other screening mammogram Malaise and fatigue Other malaise and fatigue Iron deficiency Iron deficiency anemia, unspecified SOB (shortness of breath) Shortness of breath Anemia, unspecified type- Primary Rheumatoid arthritis involving multiple sites with positive rheumatoid factor (HCC) Need for vaccination Need for prophylactic vaccination and inoculation against unspecified single disease Fibromyalgia Mylagia and myositis, unspecified BPPV (benign paroxysmal positional vertigo), bilateral Osteoporosis Osteoporosis, unspecified Anemia, unspecified type- Primary 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, right Encounter for screening mammogram for high-risk patient Osteoporosis without current pathological fracture, unspecified osteoporosis type Mixed hyperlipidemia Morbid obesity, unspecified obesity type (HCC) SOB (shortness of breath) Shortness of breath Iron malabsorption (HCC) Other specified intestinal malabsorption Pre-operative examination- Primary Preoperative examination, unspecified Acute medial meniscus tear of right knee, subsequent encounter Chronic diastolic CHF (congestive heart failure) (HCC) Chronic diastolic heart failure Essential hypertension Unspecified essential hypertension Hyperlipidemia with target LDL less than 130 Other and unspecified hyperlipidemia PVC's (premature ventricular contractions) Other premature beats TY (dyspnea on exertion) Other dyspnea and respiratory abnormality Stenosis of carotid artery, unspecified laterality Fibromyalgia Mylagia and myositis, unspecified Insomnia, unspecified type Chronic obstructive pulmonary disease, unspecified COPD type (HCC) GERD without esophagitis Esophageal reflux Iron deficiency anemia, unspecified iron deficiency anemia type Rheumatoid arthritis involving multiple sites, unspecified rheumatoid factor presence Other osteoporosis with current pathological fracture with malunion, subsequent encounter Mild episode of recurrent major depressive disorder Anal cancer ([facility])- Primary Malignant neoplasm of anus, unspecified site [facility] Establishing care with new doctor, encounter for- Primary Other reasons for seeking consultation Breast screening, unspecified Rheumatoid arthritis Fibromyalgia Mylagia and myositis, unspecified Depression Depressive disorder, not elsewhere classified Asthma (HCC) Unspecified asthma Routine health maintenance Routine general medical examination at a health care facility Abdominal pain Abdominal pain, unspecified site Mycoplasma pneumonia- Primary Pneumonia due to Mycoplasma pneumoniae Asthma (HCC) Unspecified asthma Abdominal pain Abdominal pain, unspecified site Rheumatoid arthritis(714.0) Rheumatoid arthritis Fibromyalgia Mylagia and myositis, unspecified Rheumatoid arthritis(714.0)- Primary Rheumatoid arthritis Carotid artery disease Unspecified disorders of arteries and arterioles Mycoplasma pneumonia Pneumonia due to Mycoplasma pneumoniae Fibromyalgia- Primary Mylagia and myositis, unspecified Need for prophylactic vaccination and inoculation against influenza Hyperlipidemia LDL goal < 130 Other and unspecified hyperlipidemia Asthma (HCC) Unspecified asthma Depression Depressive disorder, not elsewhere classified Fracture of triquetrum of left wrist, closed Closed fracture of triquetral (cuneiform) bone of wrist Rheumatoid arthritis(714.0) Rheumatoid arthritis Routine health maintenance Routine general medical examination at a health care facility Routine adult health maintenance Routine general medical examination at a health care facility Carotid artery disease- Primary Unspecified disorders of arteries and arterioles Depression Depressive disorder, not elsewhere classified Fibromyalgia Mylagia and myositis, unspecified Asthma (HCC) Unspecified asthma Rheumatoid arthritis(714.0) Rheumatoid arthritis Insomnia Insomnia, unspecified Hyperlipidemia LDL goal < 130 Other and unspecified hyperlipidemia Carotid artery disease- Primary Unspecified disorders of arteries and arterioles Rheumatoid arthritis(714.0) Rheumatoid arthritis Fibromyalgia Mylagia and myositis, unspecified Depression Depressive disorder, not elsewhere classified Asthma (HCC) Unspecified asthma Hyperlipidemia LDL goal < 130 Other and unspecified hyperlipidemia GERD (gastroesophageal reflux disease) Esophageal reflux Anemia, unspecified- Primary History of peptic ulcer Personal history of peptic ulcer disease Rheumatoid arthritis involving multiple sites with positive rheumatoid factor (HCC)- Primary Anemia due to other cause Screening mammogram for high-risk patient Keratoconjunctivitis sicca, in Sjogren's syndrome (HCC) Sicca syndrome Recurrent major depression in partial remission Major depressive disorder, recurrent episode, in partial or unspecified remission Bunion, right Bunion Recurrent major depression in partial remission- Primary Major depressive disorder, recurrent episode, in partial or unspecified remission Rheumatoid arthritis involving multiple sites with positive rheumatoid factor (HCC) Left-sided carotid artery disease Vitamin D deficiency Unspecified vitamin D deficiency Iron 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) Gastroesophageal reflux disease without esophagitis Esophageal reflux Morbid obesity, unspecified obesity type (HCC) Recurrent major depressive disorder, in partial remission Hospital discharge follow-up- Primary Other follow-up examination Rheumatoid arthritis involving multiple sites with positive rheumatoid factor (HCC) Vitamin D deficiency Unspecified vitamin D deficiency Occlusion of left carotid artery Occlusion and stenosis of carotid artery without mention of cerebral infarction Recurrent major depressive disorder, in partial remission Left-sided carotid artery disease Encounter for screening mammogram for malignant neoplasm of breast Other screening mammogram Malaise and fatigue Other malaise and fatigue Iron deficiency Iron deficiency anemia, unspecified SOB (shortness of breath) Shortness of breath Anemia, unspecified type- Primary Rheumatoid arthritis involving multiple sites with positive rheumatoid factor (HCC) Need for vaccination Need for prophylactic vaccination and inoculation against unspecified single disease Fibromyalgia Mylagia and myositis, unspecified BPPV (benign paroxysmal positional vertigo), bilateral Osteoporosis Osteoporosis, unspecified Anemia, unspecified type- Primary 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, right Encounter for screening mammogram for high-risk patient Osteoporosis without current pathological fracture, unspecified osteoporosis type Mixed hyperlipidemia Morbid obesity, unspecified obesity type (HCC) SOB (shortness of breath) Shortness of breath Iron malabsorption (HCC) Other specified intestinal malabsorption Pre-operative examination- Primary Preoperative examination, unspecified Acute medial meniscus tear of right knee, subsequent encounter Chronic diastolic CHF (congestive heart failure) (HCC) Chronic diastolic heart failure Essential hypertension Unspecified essential hypertension Hyperlipidemia with target LDL less than 130 Other and unspecified hyperlipidemia PVC's (premature ventricular contractions) Other premature beats TY (dyspnea on exertion) Other dyspnea and respiratory abnormality Stenosis of carotid artery, unspecified laterality Fibromyalgia Mylagia and myositis, unspecified Insomnia, unspecified type Chronic obstructive pulmonary disease, unspecified COPD type (HCC) GERD without esophagitis Esophageal reflux Iron deficiency anemia, unspecified iron deficiency anemia type Rheumatoid arthritis involving multiple sites, unspecified rheumatoid factor presence Other osteoporosis with current pathological fracture with malunion, subsequent encounter Mild episode of recurrent major depressive disorder Anal cancer (HCC)- Primary Malignant neoplasm of anus, unspecified site [facility] Establishing care with new doctor, encounter for- Primary Other reasons for seeking consultation Breast screening, unspecified Rheumatoid arthritis Fibromyalgia Mylagia and myositis, unspecified Depression Depressive disorder, not elsewhere classified Asthma (HCC) Unspecified asthma Routine health maintenance Routine general medical examination at a health care facility Abdominal pain Abdominal pain, unspecified site Mycoplasma pneumonia- Primary Pneumonia due to Mycoplasma pneumoniae Asthma (HCC) Unspecified asthma Abdominal pain Abdominal pain, unspecified site Rheumatoid arthritis(714.0) Rheumatoid arthritis Fibromyalgia Mylagia and myositis, unspecified Rheumatoid arthritis(714.0)- Primary Rheumatoid arthritis Carotid artery disease Unspecified disorders of arteries and arterioles Mycoplasma pneumonia Pneumonia due to Mycoplasma pneumoniae Fibromyalgia- Primary Mylagia and myositis, unspecified Need for prophylactic vaccination and inoculation against influenza Hyperlipidemia LDL goal < 130 Other and unspecified hyperlipidemia Asthma (HCC) Unspecified asthma Depression Depressive disorder, not elsewhere classified Fracture of triquetrum of left wrist, closed Closed fracture of triquetral (cuneiform) bone of wrist Rheumatoid arthritis(714.0) Rheumatoid arthritis Routine health maintenance Routine general medical examination at a health care facility Routine adult health maintenance Routine general medical examination at a health care facility Carotid artery disease- Primary Unspecified disorders of arteries and arterioles Depression Depressive disorder, not elsewhere classified Fibromyalgia Mylagia and myositis, unspecified Asthma (HCC) Unspecified asthma Rheumatoid arthritis(714.0) Rheumatoid arthritis Insomnia Insomnia, unspecified Hyperlipidemia LDL goal < 130 Other and unspecified hyperlipidemia Carotid artery disease- Primary Unspecified disorders of arteries and arterioles Rheumatoid arthritis(714.0) Rheumatoid arthritis Fibromyalgia Mylagia and myositis, unspecified Depression Depressive disorder, not elsewhere classified Asthma (HCC) Unspecified asthma Hyperlipidemia LDL goal < 130 Other and unspecified hyperlipidemia GERD (gastroesophageal reflux disease) Esophageal reflux Anemia, unspecified- Primary History of peptic ulcer Personal history of peptic ulcer disease Rheumatoid arthritis involving multiple sites with positive rheumatoid factor (HCC)- Primary Anemia due to other cause Screening mammogram for high-risk patient Keratoconjunctivitis sicca, in Sjogren's syndrome (HCC) Sicca syndrome Recurrent major depression in partial remission Major depressive disorder, recurrent episode, in partial or unspecified remission Bunion, right Bunion Recurrent major depression in partial remission- Primary Major depressive disorder, recurrent episode, in partial or unspecified remission Rheumatoid arthritis involving multiple sites with positive rheumatoid factor (HCC) Left-sided carotid artery disease Vitamin D deficiency Unspecified vitamin D deficiency Iron 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) Gastroesophageal reflux disease without esophagitis Esophageal reflux Morbid obesity, unspecified obesity type (HCC) Recurrent major depressive disorder, in partial remission Hospital discharge follow-up- Primary Other follow-up examination Rheumatoid arthritis involving multiple sites with positive rheumatoid factor (HCC) Vitamin D deficiency Unspecified vitamin D deficiency Occlusion of left carotid artery Occlusion and stenosis of carotid artery without mention of cerebral infarction Recurrent major depressive disorder, in partial remission Left-sided carotid artery disease Encounter for screening mammogram for malignant neoplasm of breast Other screening mammogram Malaise and fatigue Other malaise and fatigue Iron deficiency Iron deficiency anemia, unspecified SOB (shortness of breath) Shortness of breath Anemia, unspecified type- Primary Rheumatoid arthritis involving multiple sites with positive rheumatoid factor (HCC) Need for vaccination Need for prophylactic vaccination and inoculation against unspecified single disease Fibromyalgia Mylagia and myositis, unspecified BPPV (benign paroxysmal positional vertigo), bilateral Osteoporosis Osteoporosis, unspecified Anemia, unspecified type- Primary 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, right Encounter for screening mammogram for high-risk patient Osteoporosis without current pathological fracture, unspecified osteoporosis type Mixed hyperlipidemia Morbid obesity, unspecified obesity type (HCC) SOB (shortness of breath) Shortness of breath Iron malabsorption (HCC) Other specified intestinal malabsorption Pre-operative examination- Primary Preoperative examination, unspecified Acute medial meniscus tear of right knee, subsequent encounter Chronic diastolic CHF (congestive heart failure) (HCC) Chronic diastolic heart failure Essential hypertension Unspecified essential hypertension Hyperlipidemia with target LDL less than 130 Other and unspecified hyperlipidemia PVC's (premature ventricular contractions) Other premature beats TY (dyspnea on exertion) Other dyspnea and respiratory abnormality Stenosis of carotid artery, unspecified laterality Fibromyalgia Mylagia and myositis, unspecified Insomnia, unspecified type Chronic obstructive pulmonary disease, unspecified COPD type (HCC) GERD without esophagitis Esophageal reflux Iron deficiency anemia, unspecified iron deficiency anemia type Rheumatoid arthritis involving multiple sites, unspecified rheumatoid factor presence Other osteoporosis with current pathological fracture with malunion, subsequent encounter Mild episode of recurrent major depressive disorder Anal cancer (HCC)- Primary Malignant neoplasm of anus, unspecified site Chemotherapy induced nausea and vomiting Nausea with vomiting [facility] Establishing care with new doctor, encounter for- Primary Other reasons for seeking consultation Breast screening, unspecified Rheumatoid arthritis Fibromyalgia Mylagia and myositis, unspecified Depression Depressive disorder, not elsewhere classified Asthma (HCC) Unspecified asthma Routine health maintenance Routine general medical examination at a health care facility Abdominal pain Abdominal pain, unspecified site Mycoplasma pneumonia- Primary Pneumonia due to Mycoplasma pneumoniae Asthma (HCC) Unspecified asthma Abdominal pain Abdominal pain, unspecified site Rheumatoid arthritis(714.0) Rheumatoid arthritis Fibromyalgia Mylagia and myositis, unspecified Rheumatoid arthritis(714.0)- Primary Rheumatoid arthritis Carotid artery disease Unspecified disorders of arteries and arterioles Mycoplasma pneumonia Pneumonia due to Mycoplasma pneumoniae Fibromyalgia- Primary Mylagia and myositis, unspecified Need for prophylactic vaccination and inoculation against influenza Hyperlipidemia LDL goal < 130 Other and unspecified hyperlipidemia Asthma (HCC) Unspecified asthma Depression Depressive disorder, not elsewhere classified Fracture of triquetrum of left wrist, closed Closed fracture of triquetral (cuneiform) bone of wrist Rheumatoid arthritis(714.0) Rheumatoid arthritis Routine health maintenance Routine general medical examination at a health care facility Routine adult health maintenance Routine general medical examination at a health care facility Carotid artery disease- Primary Unspecified disorders of arteries and arterioles Depression Depressive disorder, not elsewhere classified Fibromyalgia Mylagia and myositis, unspecified Asthma (HCC) Unspecified asthma Rheumatoid arthritis(714.0) Rheumatoid arthritis Insomnia Insomnia, unspecified Hyperlipidemia LDL goal < 130 Other and unspecified hyperlipidemia Carotid artery disease- Primary Unspecified disorders of arteries and arterioles Rheumatoid arthritis(714.0) Rheumatoid arthritis Fibromyalgia Mylagia and myositis, unspecified Depression Depressive disorder, not elsewhere classified Asthma (HCC) Unspecified asthma Hyperlipidemia LDL goal < 130 Other and unspecified hyperlipidemia GERD (gastroesophageal reflux disease) Esophageal reflux Anemia, unspecified- Primary History of peptic ulcer Personal history of peptic ulcer disease Rheumatoid arthritis involving multiple sites with positive rheumatoid factor (HCC)- Primary Anemia due to other cause Screening mammogram for high-risk patient Keratoconjunctivitis sicca, in Sjogren's syndrome (HCC) Sicca syndrome Recurrent major depression in partial remission Major depressive disorder, recurrent episode, in partial or unspecified remission Bunion, right Bunion Recurrent major depression in partial remission- Primary Major depressive disorder, recurrent episode, in partial or unspecified remission Rheumatoid arthritis involving multiple sites with positive rheumatoid factor (HCC) Left-sided carotid artery disease Vitamin D deficiency Unspecified vitamin D deficiency Iron 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) Gastroesophageal reflux disease without esophagitis Esophageal reflux Morbid obesity, unspecified obesity type (HCC) Recurrent major depressive disorder, in partial remission Hospital discharge follow-up- Primary Other follow-up examination Rheumatoid arthritis involving multiple sites with positive rheumatoid factor (HCC) Vitamin D deficiency Unspecified vitamin D deficiency Occlusion of left carotid artery Occlusion and stenosis of carotid artery without mention of cerebral infarction Recurrent major depressive disorder, in partial remission Left-sided carotid artery disease Encounter for screening mammogram for malignant neoplasm of breast Other screening mammogram Malaise and fatigue Other malaise and fatigue Iron deficiency Iron deficiency anemia, unspecified SOB (shortness of breath) Shortness of breath Anemia, unspecified type- Primary Rheumatoid arthritis involving multiple sites with positive rheumatoid factor (HCC) Need for vaccination Need for prophylactic vaccination and inoculation against unspecified single disease Fibromyalgia Mylagia and myositis, unspecified BPPV (benign paroxysmal positional vertigo), bilateral Osteoporosis Osteoporosis, unspecified Anemia, unspecified type- Primary 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, right Encounter for screening mammogram for high-risk patient Osteoporosis without current pathological fracture, unspecified osteoporosis type Mixed hyperlipidemia Morbid obesity, unspecified obesity type (HCC) SOB (shortness of breath) Shortness of breath Iron malabsorption (HCC) Other specified intestinal malabsorption Pre-operative examination- Primary Preoperative examination, unspecified Acute medial meniscus tear of right knee, subsequent encounter Chronic diastolic CHF (congestive heart failure) (HCC) Chronic diastolic heart failure Essential hypertension Unspecified essential hypertension Hyperlipidemia with target LDL less than 130 Other and unspecified hyperlipidemia PVC's (premature ventricular contractions) Other premature beats TY (dyspnea on exertion) Other dyspnea and respiratory abnormality Stenosis of carotid artery, unspecified laterality Fibromyalgia Mylagia and myositis, unspecified Insomnia, unspecified type Chronic obstructive pulmonary disease, unspecified COPD type (HCC) GERD without esophagitis Esophageal reflux Iron deficiency anemia, unspecified iron deficiency anemia type Rheumatoid arthritis involving multiple sites, unspecified rheumatoid factor presence Other osteoporosis with current pathological fracture with malunion, subsequent encounter Mild episode of recurrent major depressive disorder Anal cancer (HCC)- Primary Malignant neoplasm of anus, unspecified site [facility] Establishing care with new doctor, encounter for- Primary Other reasons for seeking consultation Breast screening, unspecified Rheumatoid arthritis Fibromyalgia Mylagia and myositis, unspecified Depression Depressive disorder, not elsewhere classified Asthma (HCC) Unspecified asthma Routine health maintenance Routine general medical examination at a health care facility Abdominal pain Abdominal pain, unspecified site Mycoplasma pneumonia- Primary Pneumonia due to Mycoplasma pneumoniae Asthma (HCC) Unspecified asthma Abdominal pain Abdominal pain, unspecified site Rheumatoid arthritis(714.0) Rheumatoid arthritis Fibromyalgia Mylagia and myositis, unspecified Rheumatoid arthritis(714.0)- Primary Rheumatoid arthritis Carotid artery disease Unspecified disorders of arteries and arterioles Mycoplasma pneumonia Pneumonia due to Mycoplasma pneumoniae Fibromyalgia- Primary Mylagia and myositis, unspecified Need for prophylactic vaccination and inoculation against influenza Hyperlipidemia LDL goal < 130 Other and unspecified hyperlipidemia Asthma (HCC) Unspecified asthma Depression Depressive disorder, not elsewhere classified Fracture of triquetrum of left wrist, closed Closed fracture of triquetral (cuneiform) bone of wrist Rheumatoid arthritis(714.0) Rheumatoid arthritis Routine health maintenance Routine general medical examination at a health care facility Routine adult health maintenance Routine general medical examination at a health care facility Carotid artery disease- Primary Unspecified disorders of arteries and arterioles Depression Depressive disorder, not elsewhere classified Fibromyalgia Mylagia and myositis, unspecified Asthma (HCC) Unspecified asthma Rheumatoid arthritis(714.0) Rheumatoid arthritis Insomnia Insomnia, unspecified Hyperlipidemia LDL goal < 130 Other and unspecified hyperlipidemia Carotid artery disease- Primary Unspecified disorders of arteries and arterioles Rheumatoid arthritis(714.0) Rheumatoid arthritis Fibromyalgia Mylagia and myositis, unspecified Depression Depressive disorder, not elsewhere classified Asthma (HCC) Unspecified asthma Hyperlipidemia LDL goal < 130 Other and unspecified hyperlipidemia GERD (gastroesophageal reflux disease) Esophageal reflux Anemia, unspecified- Primary History of peptic ulcer Personal history of peptic ulcer disease Rheumatoid arthritis involving multiple sites with positive rheumatoid factor (HCC)- Primary Anemia due to other cause Screening mammogram for high-risk patient Keratoconjunctivitis sicca, in Sjogren's syndrome (HCC) Sicca syndrome Recurrent major depression in partial remission Major depressive disorder, recurrent episode, in partial or unspecified remission Bunion, right Bunion Recurrent major depression in partial remission- Primary Major depressive disorder, recurrent episode, in partial or unspecified remission Rheumatoid arthritis involving multiple sites with positive rheumatoid factor (HCC) Left-sided carotid artery disease Vitamin D deficiency Unspecified vitamin D deficiency Iron 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) Gastroesophageal reflux disease without esophagitis Esophageal reflux Morbid obesity, unspecified obesity type (HCC) Recurrent major depressive disorder, in partial remission Hospital discharge follow-up- Primary Other follow-up examination Rheumatoid arthritis involving multiple sites with positive rheumatoid factor (HCC) Vitamin D deficiency Unspecified vitamin D deficiency Occlusion of left carotid artery Occlusion and stenosis of carotid artery without mention of cerebral infarction Recurrent major depressive disorder, in partial remission Left-sided carotid artery disease Encounter for screening mammogram for malignant neoplasm of breast Other screening mammogram Malaise and fatigue Other malaise and fatigue Iron deficiency Iron deficiency anemia, unspecified SOB (shortness of breath) Shortness of breath Anemia, unspecified type- Primary Rheumatoid arthritis involving multiple sites with positive rheumatoid factor (HCC) Need for vaccination Need for prophylactic vaccination and inoculation against unspecified single disease Fibromyalgia Mylagia and myositis, unspecified BPPV (benign paroxysmal positional vertigo), bilateral Osteoporosis Osteoporosis, unspecified Anemia, unspecified type- Primary 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, right Encounter for screening mammogram for high-risk patient Osteoporosis without current pathological fracture, unspecified osteoporosis type Mixed hyperlipidemia Morbid obesity, unspecified obesity type (HCC) SOB (shortness of breath) Shortness of breath Iron malabsorption (HCC) Other specified intestinal malabsorption Pre-operative examination- Primary Preoperative examination, unspecified Acute medial meniscus tear of right knee, subsequent encounter Chronic diastolic CHF (congestive heart failure) (HCC) Chronic diastolic heart failure Essential hypertension Unspecified essential hypertension Hyperlipidemia with target LDL less than 130 Other and unspecified hyperlipidemia PVC's (premature ventricular contractions) Other premature beats TY (dyspnea on exertion) Other dyspnea and respiratory abnormality Stenosis of carotid artery, unspecified laterality Fibromyalgia Mylagia and myositis, unspecified Insomnia, unspecified type Chronic obstructive pulmonary disease, unspecified COPD type (HCC) GERD without esophagitis Esophageal reflux Iron deficiency anemia, unspecified iron deficiency anemia type Rheumatoid arthritis involving multiple sites, unspecified rheumatoid factor presence Other osteoporosis with current pathological fracture with malunion, subsequent encounter Mild episode of recurrent major depressive disorder Anal cancer (HCC) Malignant neoplasm of anus, unspecified site [facility] Establishing care with new doctor, encounter for- Primary Other reasons for seeking consultation Breast screening, unspecified Rheumatoid arthritis Fibromyalgia Mylagia and myositis, unspecified Depression Depressive disorder, not elsewhere classified Asthma (HCC) Unspecified asthma Routine health maintenance Routine general medical examination at a health care facility Abdominal pain Abdominal pain, unspecified site Mycoplasma pneumonia- Primary Pneumonia due to Mycoplasma pneumoniae Asthma (HCC) Unspecified asthma Abdominal pain Abdominal pain, unspecified site Rheumatoid arthritis(714.0) Rheumatoid arthritis Fibromyalgia Mylagia and myositis, unspecified Rheumatoid arthritis(714.0)- Primary Rheumatoid arthritis Carotid artery disease Unspecified disorders of arteries and arterioles Mycoplasma pneumonia Pneumonia due to Mycoplasma pneumoniae Fibromyalgia- Primary Mylagia and myositis, unspecified Need for prophylactic vaccination and inoculation against influenza Hyperlipidemia LDL goal < 130 Other and unspecified hyperlipidemia Asthma (HCC) Unspecified asthma Depression Depressive disorder, not elsewhere classified Fracture of triquetrum of left wrist, closed Closed fracture of triquetral (cuneiform) bone of wrist Rheumatoid arthritis(714.0) Rheumatoid arthritis Routine health maintenance Routine general medical examination at a health care facility Routine adult health maintenance Routine general medical examination at a health care facility Carotid artery disease- Primary Unspecified disorders of arteries and arterioles Depression Depressive disorder, not elsewhere classified Fibromyalgia Mylagia and myositis, unspecified Asthma (HCC) Unspecified asthma Rheumatoid arthritis(714.0) Rheumatoid arthritis Insomnia Insomnia, unspecified Hyperlipidemia LDL goal < 130 Other and unspecified hyperlipidemia Carotid artery disease- Primary Unspecified disorders of arteries and arterioles Rheumatoid arthritis(714.0) Rheumatoid arthritis Fibromyalgia Mylagia and myositis, unspecified Depression Depressive disorder, not elsewhere classified Asthma (HCC) Unspecified asthma Hyperlipidemia LDL goal < 130 Other and unspecified hyperlipidemia GERD (gastroesophageal reflux disease) Esophageal reflux Anemia, unspecified- Primary History of peptic ulcer Personal history of peptic ulcer disease Rheumatoid arthritis involving multiple sites with positive rheumatoid factor (HCC)- Primary Anemia due to other cause Screening mammogram for high-risk patient Keratoconjunctivitis sicca, in Sjogren's syndrome (HCC) Sicca syndrome Recurrent major depression in partial remission Major depressive disorder, recurrent episode, in partial or unspecified remission Bunion, right Bunion Recurrent major depression in partial remission- Primary Major depressive disorder, recurrent episode, in partial or unspecified remission Rheumatoid arthritis involving multiple sites with positive rheumatoid factor (HCC) Left-sided carotid artery disease Vitamin D deficiency Unspecified vitamin D deficiency Iron 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) Gastroesophageal reflux disease without esophagitis Esophageal reflux Morbid obesity, unspecified obesity type (HCC) Recurrent major depressive disorder, in partial remission Hospital discharge follow-up- Primary Other follow-up examination Rheumatoid arthritis involving multiple sites with positive rheumatoid factor (HCC) Vitamin D deficiency Unspecified vitamin D deficiency Occlusion of left carotid artery Occlusion and stenosis of carotid artery without mention of cerebral infarction Recurrent major depressive disorder, in partial remission Left-sided carotid artery disease Encounter for screening mammogram for malignant neoplasm of breast Other screening mammogram Malaise and fatigue Other malaise and fatigue Iron deficiency Iron deficiency anemia, unspecified SOB (shortness of breath) Shortness of breath Anemia, unspecified type- Primary Rheumatoid arthritis involving multiple sites with positive rheumatoid factor (HCC) Need for vaccination Need for prophylactic vaccination and inoculation against unspecified single disease Fibromyalgia Mylagia and myositis, unspecified BPPV (benign paroxysmal positional vertigo), bilateral Osteoporosis Osteoporosis, unspecified Anemia, unspecified type- Primary 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, right Encounter for screening mammogram for high-risk patient Osteoporosis without current pathological fracture, unspecified osteoporosis type Mixed hyperlipidemia Morbid obesity, unspecified obesity type (HCC) SOB (shortness of breath) Shortness of breath Iron malabsorption (HCC) Other specified intestinal malabsorption Pre-operative examination- Primary Preoperative examination, unspecified Acute medial meniscus tear of right knee, subsequent encounter Chronic diastolic CHF (congestive heart failure) (HCC) Chronic diastolic heart failure Essential hypertension Unspecified essential hypertension Hyperlipidemia with target LDL less than 130 Other and unspecified hyperlipidemia PVC's (premature ventricular contractions) Other premature beats TY (dyspnea on exertion) Other dyspnea and respiratory abnormality Stenosis of carotid artery, unspecified laterality Fibromyalgia Mylagia and myositis, unspecified Insomnia, unspecified type Chronic obstructive pulmonary disease, unspecified COPD type (HCC) GERD without esophagitis Esophageal reflux Iron deficiency anemia, unspecified iron deficiency anemia type Rheumatoid arthritis involving multiple sites, unspecified rheumatoid factor presence Other osteoporosis with current pathological fracture with malunion, subsequent encounter Mild episode of recurrent major depressive disorder Anal cancer (HCC) Malignant neoplasm of anus, unspecified site [facility] this [facility] Establishing care with new doctor, encounter for- Primary Other reasons for seeking consultation Breast screening, unspecified Rheumatoid arthritis Fibromyalgia Mylagia and myositis, unspecified Depression Depressive disorder, not elsewhere classified Asthma (HCC) Unspecified asthma Routine health maintenance Routine general medical examination at a health care facility Abdominal pain Abdominal pain, unspecified site Mycoplasma pneumonia- Primary Pneumonia due to Mycoplasma pneumoniae Asthma (HCC) Unspecified asthma Abdominal pain Abdominal pain, unspecified site Rheumatoid arthritis(714.0) Rheumatoid arthritis Fibromyalgia Mylagia and myositis, unspecified Rheumatoid arthritis(714.0)- Primary Rheumatoid arthritis Carotid artery disease Unspecified disorders of arteries and arterioles Mycoplasma pneumonia Pneumonia due to Mycoplasma pneumoniae Fibromyalgia- Primary Mylagia and myositis, unspecified Need for prophylactic vaccination and inoculation against influenza Hyperlipidemia LDL goal < 130 Other and unspecified hyperlipidemia Asthma (HCC) Unspecified asthma Depression Depressive disorder, not elsewhere classified Fracture of triquetrum of left wrist, closed Closed fracture of triquetral (cuneiform) bone of wrist Rheumatoid arthritis(714.0) Rheumatoid arthritis Routine health maintenance Routine general medical examination at a health care facility Routine adult health maintenance Routine general medical examination at a health care facility Carotid artery disease- Primary Unspecified disorders of arteries and arterioles Depression Depressive disorder, not elsewhere classified Fibromyalgia Mylagia and myositis, unspecified Asthma (HCC) Unspecified asthma Rheumatoid arthritis(714.0) Rheumatoid arthritis Insomnia Insomnia, unspecified Hyperlipidemia LDL goal < 130 Other and unspecified hyperlipidemia Carotid artery disease- Primary Unspecified disorders of arteries and arterioles Rheumatoid arthritis(714.0) Rheumatoid arthritis Fibromyalgia Mylagia and myositis, unspecified Depression Depressive disorder, not elsewhere classified Asthma (HCC) Unspecified asthma Hyperlipidemia LDL goal < 130 Other and unspecified hyperlipidemia GERD (gastroesophageal reflux disease) Esophageal reflux Anemia, unspecified- Primary History of peptic ulcer Personal history of peptic ulcer disease Rheumatoid arthritis involving multiple sites with positive rheumatoid factor (HCC)- Primary Anemia due to other cause Screening mammogram for high-risk patient Keratoconjunctivitis sicca, in Sjogren's syndrome (HCC) Sicca syndrome Recurrent major depression in partial remission Major depressive disorder, recurrent episode, in partial or unspecified remission Bunion, right Bunion Recurrent major depression in partial remission- Primary Major depressive disorder, recurrent episode, in partial or unspecified remission Rheumatoid arthritis involving multiple sites with positive rheumatoid factor (HCC) Left-sided carotid artery disease Vitamin D deficiency Unspecified vitamin D deficiency Iron 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) Gastroesophageal reflux disease without esophagitis Esophageal reflux Morbid obesity, unspecified obesity type (HCC) Recurrent major depressive disorder, in partial remission Hospital discharge follow-up- Primary Other follow-up examination Rheumatoid arthritis involving multiple sites with positive rheumatoid factor (HCC) Vitamin D deficiency Unspecified vitamin D deficiency Occlusion of left carotid artery Occlusion and stenosis of carotid artery without mention of cerebral infarction Recurrent major depressive disorder, in partial remission Left-sided carotid artery disease Encounter for screening mammogram for malignant neoplasm of breast Other screening mammogram Malaise and fatigue Other malaise and fatigue Iron deficiency Iron deficiency anemia, unspecified SOB (shortness of breath) Shortness of breath Anemia, unspecified type- Primary Rheumatoid arthritis involving multiple sites with positive rheumatoid factor (HCC) Need for vaccination Need for prophylactic vaccination and inoculation against unspecified single disease Fibromyalgia Mylagia and myositis, unspecified BPPV (benign paroxysmal positional vertigo), bilateral Osteoporosis Osteoporosis, unspecified Anemia, unspecified type- Primary 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, right Encounter for screening mammogram for high-risk patient Osteoporosis without current pathological fracture, unspecified osteoporosis type Mixed hyperlipidemia Morbid obesity, unspecified obesity type (HCC) SOB (shortness of breath) Shortness of breath Iron malabsorption (HCC) Other specified intestinal malabsorption Pre-operative examination- Primary Preoperative examination, unspecified Acute medial meniscus tear of right knee, subsequent encounter Chronic diastolic CHF (congestive heart failure) (HCC) Chronic diastolic heart failure Essential hypertension Unspecified essential hypertension Hyperlipidemia with target LDL less than 130 Other and unspecified hyperlipidemia PVC's (premature ventricular contractions) Other premature beats TY (dyspnea on exertion) Other dyspnea and respiratory abnormality Stenosis of carotid artery, unspecified laterality Fibromyalgia Mylagia and myositis, unspecified Insomnia, unspecified type Chronic obstructive pulmonary disease, unspecified COPD type (HCC) GERD without esophagitis Esophageal reflux Iron deficiency anemia, unspecified iron deficiency anemia type Rheumatoid arthritis involving multiple sites, unspecified rheumatoid factor presence Other osteoporosis with current pathological fracture with malunion, subsequent encounter Mild episode of recurrent major depressive disorder Rheumatoid arthritis involving multiple sites, unspecified whether rheumatoid factor present (HCC) Other osteoporosis without current pathological fracture [facility] Diagnosis Establishing care with new doctor, encounter for- Primary Other reasons for seeking consultation Breast screening, unspecified Rheumatoid arthritis Fibromyalgia Mylagia and myositis, unspecified Depression Depressive disorder, not elsewhere classified Asthma (HCC) Unspecified asthma Routine health maintenance Routine general medical examination at a health care facility Abdominal pain Abdominal pain, unspecified site Mycoplasma pneumonia- Primary Pneumonia due to Mycoplasma pneumoniae Asthma (HCC) Unspecified asthma Abdominal pain Abdominal pain, unspecified site Rheumatoid arthritis(714.0) Rheumatoid arthritis Fibromyalgia Mylagia and myositis, unspecified Rheumatoid arthritis(714.0)- Primary Rheumatoid arthritis Carotid artery disease Unspecified disorders of arteries and arterioles Mycoplasma pneumonia Pneumonia due to Mycoplasma pneumoniae Fibromyalgia- Primary Mylagia and myositis, unspecified Need for prophylactic vaccination and inoculation against influenza Hyperlipidemia LDL goal < 130 Other and unspecified hyperlipidemia Asthma (HCC) Unspecified asthma Depression Depressive disorder, not elsewhere classified Fracture of triquetrum of left wrist, closed Closed fracture of triquetral (cuneiform) bone of wrist Rheumatoid arthritis(714.0) Rheumatoid arthritis Routine health maintenance Routine general medical examination at a health care facility Routine adult health maintenance Routine general medical examination at a health care facility Carotid artery disease- Primary Unspecified disorders of arteries and arterioles Depression Depressive disorder, not elsewhere classified Fibromyalgia Mylagia and myositis, unspecified Asthma (HCC) Unspecified asthma Rheumatoid arthritis(714.0) Rheumatoid arthritis Insomnia Insomnia, unspecified Hyperlipidemia LDL goal < 130 Other and unspecified hyperlipidemia Carotid artery disease- Primary Unspecified disorders of arteries and arterioles Rheumatoid arthritis(714.0) Rheumatoid arthritis Fibromyalgia Mylagia and myositis, unspecified Depression Depressive disorder, not elsewhere classified Asthma (HCC) Unspecified asthma Hyperlipidemia LDL goal < 130 Other and unspecified hyperlipidemia GERD (gastroesophageal reflux disease) Esophageal reflux Anemia, unspecified- Primary History of peptic ulcer Personal history of peptic ulcer disease Rheumatoid arthritis involving multiple sites with positive rheumatoid factor (HCC)- Primary Anemia due to other cause Screening mammogram for high-risk patient Keratoconjunctivitis sicca, in Sjogren's syndrome (HCC) Sicca syndrome Recurrent major depression in partial remission Major depressive disorder, recurrent episode, in partial or unspecified remission Bunion, right Bunion Recurrent major depression in partial remission- Primary Major depressive disorder, recurrent episode, in partial or unspecified remission Rheumatoid arthritis involving multiple sites with positive rheumatoid factor (HCC) Left-sided carotid artery disease Vitamin D deficiency Unspecified vitamin D deficiency Iron 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) Gastroesophageal reflux disease without esophagitis Esophageal reflux Morbid obesity, unspecified obesity type (HCC) Recurrent major depressive disorder, in partial remission Hospital discharge follow-up- Primary Other follow-up examination Rheumatoid arthritis involving multiple sites with positive rheumatoid factor (HCC) Vitamin D deficiency Unspecified vitamin D deficiency Occlusion of left carotid artery Occlusion and stenosis of carotid artery without mention of cerebral infarction Recurrent major depressive disorder, in partial remission Left-sided carotid artery disease Encounter for screening mammogram for malignant neoplasm of breast Other screening mammogram Malaise and fatigue Other malaise and fatigue Iron deficiency Iron deficiency anemia, unspecified SOB (shortness of breath) Shortness of breath Anemia, unspecified type- Primary Rheumatoid arthritis involving multiple sites with positive rheumatoid factor (HCC) Need for vaccination Need for prophylactic vaccination and inoculation against unspecified single disease Fibromyalgia Mylagia and myositis, unspecified BPPV (benign paroxysmal positional vertigo), bilateral Osteoporosis Osteoporosis, unspecified Anemia, unspecified type- Primary 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, right Encounter for screening mammogram for high-risk patient Osteoporosis without current pathological fracture, unspecified osteoporosis type Mixed hyperlipidemia Morbid obesity, unspecified obesity type (HCC) SOB (shortness of breath) Shortness of breath Iron malabsorption (HCC) Other specified intestinal malabsorption Pre-operative examination- Primary Preoperative examination, unspecified Acute medial meniscus tear of right knee, subsequent encounter Chronic diastolic CHF (congestive heart failure) (HCC) Chronic diastolic heart failure Essential hypertension Unspecified essential hypertension Hyperlipidemia with target LDL less than 130 Other and unspecified hyperlipidemia PVC's (premature ventricular contractions) Other premature beats TY (dyspnea on exertion) Other dyspnea and respiratory abnormality Stenosis of carotid artery, unspecified laterality Fibromyalgia Mylagia and myositis, unspecified Insomnia, unspecified type Chronic obstructive pulmonary disease, unspecified COPD type (HCC) GERD without esophagitis Esophageal reflux Iron deficiency anemia, unspecified iron deficiency anemia type Rheumatoid arthritis involving multiple sites, unspecified rheumatoid factor presence Other osteoporosis with current pathological fracture with malunion, subsequent encounter Mild episode of recurrent major depressive disorder Anal cancer (HCC)- Primary Malignant neoplasm of anus, unspecified site [facility] this [facility] Diagnosis Establishing care with new doctor, encounter for- Primary Other reasons for seeking consultation Breast screening, unspecified Rheumatoid arthritis Fibromyalgia Mylagia and myositis, unspecified Depression Depressive disorder, not elsewhere classified Asthma (HCC) Unspecified asthma Routine health maintenance Routine general medical examination at a health care facility Abdominal pain Abdominal pain, unspecified site Mycoplasma pneumonia- Primary Pneumonia due to Mycoplasma pneumoniae Asthma (HCC) Unspecified asthma Abdominal pain Abdominal pain, unspecified site Rheumatoid arthritis(714.0) Rheumatoid arthritis Fibromyalgia Mylagia and myositis, unspecified Rheumatoid arthritis(714.0)- Primary Rheumatoid arthritis Carotid artery disease Unspecified disorders of arteries and arterioles Mycoplasma pneumonia Pneumonia due to Mycoplasma pneumoniae Fibromyalgia- Primary Mylagia and myositis, unspecified Need for prophylactic vaccination and inoculation against influenza Hyperlipidemia LDL goal < 130 Other and unspecified hyperlipidemia Asthma (HCC) Unspecified asthma Depression Depressive disorder, not elsewhere classified Fracture of triquetrum of left wrist, closed Closed fracture of triquetral (cuneiform) bone of wrist Rheumatoid arthritis(714.0) Rheumatoid arthritis Routine health maintenance Routine general medical examination at a health care facility Routine adult health maintenance Routine general medical examination at a health care facility Carotid artery disease- Primary Unspecified disorders of arteries and arterioles Depression Depressive disorder, not elsewhere classified Fibromyalgia Mylagia and myositis, unspecified Asthma (HCC) Unspecified asthma Rheumatoid arthritis(714.0) Rheumatoid arthritis Insomnia Insomnia, unspecified Hyperlipidemia LDL goal < 130 Other and unspecified hyperlipidemia Carotid artery disease- Primary Unspecified disorders of arteries and arterioles Rheumatoid arthritis(714.0) Rheumatoid arthritis Fibromyalgia Mylagia and myositis, unspecified Depression Depressive disorder, not elsewhere classified Asthma (HCC) Unspecified asthma Hyperlipidemia LDL goal < 130 Other and unspecified hyperlipidemia GERD (gastroesophageal reflux disease) Esophageal reflux Anemia, unspecified- Primary History of peptic ulcer Personal history of peptic ulcer disease Rheumatoid arthritis involving multiple sites with positive rheumatoid factor (HCC)- Primary Anemia due to other cause Screening mammogram for high-risk patient Keratoconjunctivitis sicca, in Sjogren's syndrome (HCC) Sicca syndrome Recurrent major depression in partial remission Major depressive disorder, recurrent episode, in partial or unspecified remission Bunion, right Bunion Recurrent major depression in partial remission- Primary Major depressive disorder, recurrent episode, in partial or unspecified remission Rheumatoid arthritis involving multiple sites with positive rheumatoid factor (HCC) Left-sided carotid artery disease Vitamin D deficiency Unspecified vitamin D deficiency Iron 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) Gastroesophageal reflux disease without esophagitis Esophageal reflux Morbid obesity, unspecified obesity type (HCC) Recurrent major depressive disorder, in partial remission Hospital discharge follow-up- Primary Other follow-up examination Rheumatoid arthritis involving multiple sites with positive rheumatoid factor (HCC) Vitamin D deficiency Unspecified vitamin D deficiency Occlusion of left carotid artery Occlusion and stenosis of carotid artery without mention of cerebral infarction Recurrent major depressive disorder, in partial remission Left-sided carotid artery disease Encounter for screening mammogram for malignant neoplasm of breast Other screening mammogram Malaise and fatigue Other malaise and fatigue Iron deficiency Iron deficiency anemia, unspecified SOB (shortness of breath) Shortness of breath Anemia, unspecified type- Primary Rheumatoid arthritis involving multiple sites with positive rheumatoid factor (HCC) Need for vaccination Need for prophylactic vaccination and inoculation against unspecified single disease Fibromyalgia Mylagia and myositis, unspecified BPPV (benign paroxysmal positional vertigo), bilateral Osteoporosis Osteoporosis, unspecified Anemia, unspecified type- Primary 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, right Encounter for screening mammogram for high-risk patient Osteoporosis without current pathological fracture, unspecified osteoporosis type Mixed hyperlipidemia Morbid obesity, unspecified obesity type (HCC) SOB (shortness of breath) Shortness of breath Iron malabsorption (HCC) Other specified intestinal malabsorption Pre-operative examination- Primary Preoperative examination, unspecified Acute medial meniscus tear of right knee, subsequent encounter Chronic diastolic CHF (congestive heart failure) (HCC) Chronic diastolic heart failure Essential hypertension Unspecified essential hypertension Hyperlipidemia with target LDL less than 130 Other and unspecified hyperlipidemia PVC's (premature ventricular contractions) Other premature beats TY (dyspnea on exertion) Other dyspnea and respiratory abnormality Stenosis of carotid artery, unspecified laterality Fibromyalgia Mylagia and myositis, unspecified Insomnia, unspecified type Chronic obstructive pulmonary disease, unspecified COPD type (HCC) GERD without esophagitis Esophageal reflux Iron deficiency anemia, unspecified iron deficiency anemia type Rheumatoid arthritis involving multiple sites, unspecified rheumatoid factor presence Other osteoporosis with current pathological fracture with malunion, subsequent encounter Mild episode of recurrent major depressive disorder Radiotherapy follow-up- Primary Radiotherapy follow-up examination Anal cancer (HCC) Malignant neoplasm of anus, unspecified site [facility] Diagnosis Establishing care with new doctor, encounter for- Primary Other reasons for seeking consultation Breast screening, unspecified Rheumatoid arthritis Fibromyalgia Mylagia and myositis, unspecified Depression Depressive disorder, not elsewhere classified Asthma (HCC) Unspecified asthma Routine health maintenance Routine general medical examination at a health care facility Abdominal pain Abdominal pain, unspecified site Mycoplasma pneumonia- Primary Pneumonia due to Mycoplasma pneumoniae Asthma (HCC) Unspecified asthma Abdominal pain Abdominal pain, unspecified site Rheumatoid arthritis(714.0) Rheumatoid arthritis Fibromyalgia Mylagia and myositis, unspecified Rheumatoid arthritis(714.0)- Primary Rheumatoid arthritis Carotid artery disease Unspecified disorders of arteries and arterioles Mycoplasma pneumonia Pneumonia due to Mycoplasma pneumoniae Fibromyalgia- Primary Mylagia and myositis, unspecified Need for prophylactic vaccination and inoculation against influenza Hyperlipidemia LDL goal < 130 Other and unspecified hyperlipidemia Asthma (HCC) Unspecified asthma Depression Depressive disorder, not elsewhere classified Fracture of triquetrum of left wrist, closed Closed fracture of triquetral (cuneiform) bone of wrist Rheumatoid arthritis(714.0) Rheumatoid arthritis Routine health maintenance Routine general medical examination at a health care facility Routine adult health maintenance Routine general medical examination at a health care facility Carotid artery disease- Primary Unspecified disorders of arteries and arterioles Depression Depressive disorder, not elsewhere classified Fibromyalgia Mylagia and myositis, unspecified Asthma (HCC) Unspecified asthma Rheumatoid arthritis(714.0) Rheumatoid arthritis Insomnia Insomnia, unspecified Hyperlipidemia LDL goal < 130 Other and unspecified hyperlipidemia Carotid artery disease- Primary Unspecified disorders of arteries and arterioles Rheumatoid arthritis(714.0) Rheumatoid arthritis Fibromyalgia Mylagia and myositis, unspecified Depression Depressive disorder, not elsewhere classified Asthma (HCC) Unspecified asthma Hyperlipidemia LDL goal < 130 Other and unspecified hyperlipidemia GERD (gastroesophageal reflux disease) Esophageal reflux Anemia, unspecified- Primary History of peptic ulcer Personal history of peptic ulcer disease Rheumatoid arthritis involving multiple sites with positive rheumatoid factor (HCC)- Primary Anemia due to other cause Screening mammogram for high-risk patient Keratoconjunctivitis sicca, in Sjogren's syndrome (HCC) Sicca syndrome Recurrent major depression in partial remission Major depressive disorder, recurrent episode, in partial or unspecified remission Bunion, right Bunion Recurrent major depression in partial remission- Primary Major depressive disorder, recurrent episode, in partial or unspecified remission Rheumatoid arthritis involving multiple sites with positive rheumatoid factor (HCC) Left-sided carotid artery disease Vitamin D deficiency Unspecified vitamin D deficiency Iron 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) Gastroesophageal reflux disease without esophagitis Esophageal reflux Morbid obesity, unspecified obesity type (HCC) Recurrent major depressive disorder, in partial remission Hospital discharge follow-up- Primary Other follow-up examination Rheumatoid arthritis involving multiple sites with positive rheumatoid factor (HCC) Vitamin D deficiency Unspecified vitamin D deficiency Occlusion of left carotid artery Occlusion and stenosis of carotid artery without mention of cerebral infarction Recurrent major depressive disorder, in partial remission Left-sided carotid artery disease Encounter for screening mammogram for malignant neoplasm of breast Other screening mammogram Malaise and fatigue Other malaise and fatigue Iron deficiency Iron deficiency anemia, unspecified SOB (shortness of breath) Shortness of breath Anemia, unspecified type- Primary Rheumatoid arthritis involving multiple sites with positive rheumatoid factor (HCC) Need for vaccination Need for prophylactic vaccination and inoculation against unspecified single disease Fibromyalgia Mylagia and myositis, unspecified BPPV (benign paroxysmal positional vertigo), bilateral Osteoporosis Osteoporosis, unspecified Anemia, unspecified type- Primary 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, right Encounter for screening mammogram for high-risk patient Osteoporosis without current pathological fracture, unspecified osteoporosis type Mixed hyperlipidemia Morbid obesity, unspecified obesity type (HCC) SOB (shortness of breath) Shortness of breath Iron malabsorption (HCC) Other specified intestinal malabsorption Pre-operative examination- Primary Preoperative examination, unspecified Acute medial meniscus tear of right knee, subsequent encounter Chronic diastolic CHF (congestive heart failure) (HCC) Chronic diastolic heart failure Essential hypertension Unspecified essential hypertension Hyperlipidemia with target LDL less than 130 Other and unspecified hyperlipidemia PVC's (premature ventricular contractions) Other premature beats TY (dyspnea on exertion) Other dyspnea and respiratory abnormality Stenosis of carotid artery, unspecified laterality Fibromyalgia Mylagia and myositis, unspecified Insomnia, unspecified type Chronic obstructive pulmonary disease, unspecified COPD type (HCC) GERD without esophagitis Esophageal reflux Iron deficiency anemia, unspecified iron deficiency anemia type Rheumatoid arthritis involving multiple sites, unspecified rheumatoid factor presence Other osteoporosis with current pathological fracture with malunion, subsequent encounter Mild episode of recurrent major depressive disorder High risk medication use Encounter for long-term (current) use of other medications Rheumatoid arthritis involving multiple sites with positive rheumatoid factor (HCC) Localized osteoporosis without current pathological fracture [facility] Diagnosis Establishing care with new doctor, encounter for- Primary Other reasons for seeking consultation Breast screening, unspecified Rheumatoid arthritis Fibromyalgia Mylagia and myositis, unspecified Depression Depressive disorder, not elsewhere classified Asthma (HCC) Unspecified asthma Routine health maintenance Routine general medical examination at a health care facility Abdominal pain Abdominal pain, unspecified site Mycoplasma pneumonia- Primary Pneumonia due to Mycoplasma pneumoniae Asthma (HCC) Unspecified asthma Abdominal pain Abdominal pain, unspecified site Rheumatoid arthritis(714.0) Rheumatoid arthritis Fibromyalgia Mylagia and myositis, unspecified Rheumatoid arthritis(714.0)- Primary Rheumatoid arthritis Carotid artery disease Unspecified disorders of arteries and arterioles Mycoplasma pneumonia Pneumonia due to Mycoplasma pneumoniae Fibromyalgia- Primary Mylagia and myositis, unspecified Need for prophylactic vaccination and inoculation against influenza Hyperlipidemia LDL goal < 130 Other and unspecified hyperlipidemia Asthma (HCC) Unspecified asthma Depression Depressive disorder, not elsewhere classified Fracture of triquetrum of left wrist, closed Closed fracture of triquetral (cuneiform) bone of wrist Rheumatoid arthritis(714.0) Rheumatoid arthritis Routine health maintenance Routine general medical examination at a health care facility Routine adult health maintenance Routine general medical examination at a health care facility Carotid artery disease- Primary Unspecified disorders of arteries and arterioles Depression Depressive disorder, not elsewhere classified Fibromyalgia Mylagia and myositis, unspecified Asthma (HCC) Unspecified asthma Rheumatoid arthritis(714.0) Rheumatoid arthritis Insomnia Insomnia, unspecified Hyperlipidemia LDL goal < 130 Other and unspecified hyperlipidemia Carotid artery disease- Primary Unspecified disorders of arteries and arterioles Rheumatoid arthritis(714.0) Rheumatoid arthritis Fibromyalgia Mylagia and myositis, unspecified Depression Depressive disorder, not elsewhere classified Asthma (HCC) Unspecified asthma Hyperlipidemia LDL goal < 130 Other and unspecified hyperlipidemia GERD (gastroesophageal reflux disease) Esophageal reflux Anemia, unspecified- Primary History of peptic ulcer Personal history of peptic ulcer disease Rheumatoid arthritis involving multiple sites with positive rheumatoid factor (HCC)- Primary Anemia due to other cause Screening mammogram for high-risk patient Keratoconjunctivitis sicca, in Sjogren's syndrome (HCC) Sicca syndrome Recurrent major depression in partial remission Major depressive disorder, recurrent episode, in partial or unspecified remission Bunion, right Bunion Recurrent major depression in partial remission- Primary Major depressive disorder, recurrent episode, in partial or unspecified remission Rheumatoid arthritis involving multiple sites with positive rheumatoid factor (HCC) Left-sided carotid artery disease Vitamin D deficiency Unspecified vitamin D deficiency Iron 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) Gastroesophageal reflux disease without esophagitis Esophageal reflux Morbid obesity, unspecified obesity type (HCC) Recurrent major depressive disorder, in partial remission Hospital discharge follow-up- Primary Other follow-up examination Rheumatoid arthritis involving multiple sites with positive rheumatoid factor (HCC) Vitamin D deficiency Unspecified vitamin D deficiency Occlusion of left carotid artery Occlusion and stenosis of carotid artery without mention of cerebral infarction Recurrent major depressive disorder, in partial remission Left-sided carotid artery disease Encounter for screening mammogram for malignant neoplasm of breast Other screening mammogram Malaise and fatigue Other malaise and fatigue Iron deficiency Iron deficiency anemia, unspecified SOB (shortness of breath) Shortness of breath Anemia, unspecified type- Primary Rheumatoid arthritis involving multiple sites with positive rheumatoid factor (HCC) Need for vaccination Need for prophylactic vaccination and inoculation against unspecified single disease Fibromyalgia Mylagia and myositis, unspecified BPPV (benign paroxysmal positional vertigo), bilateral Osteoporosis Osteoporosis, unspecified Anemia, unspecified type- Primary 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, right Encounter for screening mammogram for high-risk patient Osteoporosis without current pathological fracture, unspecified osteoporosis type Mixed hyperlipidemia Morbid obesity, unspecified obesity type (HCC) SOB (shortness of breath) Shortness of breath Iron malabsorption (HCC) Other specified intestinal malabsorption Pre-operative examination- Primary Preoperative examination, unspecified Acute medial meniscus tear of right knee, subsequent encounter Chronic diastolic CHF (congestive heart failure) (HCC) Chronic diastolic heart failure Essential hypertension Unspecified essential hypertension Hyperlipidemia with target LDL less than 130 Other and unspecified hyperlipidemia PVC's (premature ventricular contractions) Other premature beats TY (dyspnea on exertion) Other dyspnea and respiratory abnormality Stenosis of carotid artery, unspecified laterality Fibromyalgia Mylagia and myositis, unspecified Insomnia, unspecified type Chronic obstructive pulmonary disease, unspecified COPD type (HCC) GERD without esophagitis Esophageal reflux Iron deficiency anemia, unspecified iron deficiency anemia type Rheumatoid arthritis involving multiple sites, unspecified rheumatoid factor presence Other osteoporosis with current pathological fracture with malunion, subsequent encounter Mild episode of recurrent major depressive disorder Rheumatoid arthritis involving multiple sites with positive rheumatoid factor (HCC)- Primary Other osteoporosis without current pathological fracture [facility] Establishing care with new doctor, encounter for- Primary Other reasons for seeking consultation Breast screening, unspecified Rheumatoid arthritis Fibromyalgia Mylagia and myositis, unspecified Depression Depressive disorder, not elsewhere classified Asthma (HCC) Unspecified asthma Routine health maintenance Routine general medical examination at a health care facility Abdominal pain Abdominal pain, unspecified site Mycoplasma pneumonia- Primary Pneumonia due to Mycoplasma pneumoniae Asthma (HCC) Unspecified asthma Abdominal pain Abdominal pain, unspecified site Rheumatoid arthritis(714.0) Rheumatoid arthritis Fibromyalgia Mylagia and myositis, unspecified Rheumatoid arthritis(714.0)- Primary Rheumatoid arthritis Carotid artery disease Unspecified disorders of arteries and arterioles Mycoplasma pneumonia Pneumonia due to Mycoplasma pneumoniae Fibromyalgia- Primary Mylagia and myositis, unspecified Need for prophylactic vaccination and inoculation against influenza Hyperlipidemia LDL goal < 130 Other and unspecified hyperlipidemia Asthma (HCC) Unspecified asthma Depression Depressive disorder, not elsewhere classified Fracture of triquetrum of left wrist, closed Closed fracture of triquetral (cuneiform) bone of wrist Rheumatoid arthritis(714.0) Rheumatoid arthritis Routine health maintenance Routine general medical examination at a health care facility Routine adult health maintenance Routine general medical examination at a health care facility Carotid artery disease- Primary Unspecified disorders of arteries and arterioles Depression Depressive disorder, not elsewhere classified Fibromyalgia Mylagia and myositis, unspecified Asthma (HCC) Unspecified asthma Rheumatoid arthritis(714.0) Rheumatoid arthritis Insomnia Insomnia, unspecified Hyperlipidemia LDL goal < 130 Other and unspecified hyperlipidemia Carotid artery disease- Primary Unspecified disorders of arteries and arterioles Rheumatoid arthritis(714.0) Rheumatoid arthritis Fibromyalgia Mylagia and myositis, unspecified Depression Depressive disorder, not elsewhere classified Asthma (HCC) Unspecified asthma Hyperlipidemia LDL goal < 130 Other and unspecified hyperlipidemia GERD (gastroesophageal reflux disease) Esophageal reflux Anemia, unspecified- Primary History of peptic ulcer Personal history of peptic ulcer disease Rheumatoid arthritis involving multiple sites with positive rheumatoid factor (HCC)- Primary Anemia due to other cause Screening mammogram for high-risk patient Keratoconjunctivitis sicca, in Sjogren's syndrome (HCC) Sicca syndrome Recurrent major depression in partial remission Major depressive disorder, recurrent episode, in partial or unspecified remission Bunion, right Bunion Recurrent major depression in partial remission- Primary Major depressive disorder, recurrent episode, in partial or unspecified remission Rheumatoid arthritis involving multiple sites with positive rheumatoid factor (HCC) Left-sided carotid artery disease Vitamin D deficiency Unspecified vitamin D deficiency Iron 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) Gastroesophageal reflux disease without esophagitis Esophageal reflux Morbid obesity, unspecified obesity type (HCC) Recurrent major depressive disorder, in partial remission Hospital discharge follow-up- Primary Other follow-up examination Rheumatoid arthritis involving multiple sites with positive rheumatoid factor (HCC) Vitamin D deficiency Unspecified vitamin D deficiency Occlusion of left carotid artery Occlusion and stenosis of carotid artery without mention of cerebral infarction Recurrent major depressive disorder, in partial remission Left-sided carotid artery disease Encounter for screening mammogram for malignant neoplasm of breast Other screening mammogram Malaise and fatigue Other malaise and fatigue Iron deficiency Iron deficiency anemia, unspecified SOB (shortness of breath) Shortness of breath Anemia, unspecified type- Primary Rheumatoid arthritis involving multiple sites with positive rheumatoid factor (HCC) Need for vaccination Need for prophylactic vaccination and inoculation against unspecified single disease Fibromyalgia Mylagia and myositis, unspecified BPPV (benign paroxysmal positional vertigo), bilateral Osteoporosis Osteoporosis, unspecified Anemia, unspecified type- Primary 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, right Encounter for screening mammogram for high-risk patient Osteoporosis without current pathological fracture, unspecified osteoporosis type Mixed hyperlipidemia Morbid obesity, unspecified obesity type (HCC) SOB (shortness of breath) Shortness of breath Iron malabsorption (HCC) Other specified intestinal malabsorption Pre-operative examination- Primary Preoperative examination, unspecified Acute medial meniscus tear of right knee, subsequent encounter Chronic diastolic CHF (congestive heart failure) (HCC) Chronic diastolic heart failure Essential hypertension Unspecified essential hypertension Hyperlipidemia with target LDL less than 130 Other and unspecified hyperlipidemia PVC's (premature ventricular contractions) Other premature beats TY (dyspnea on exertion) Other dyspnea and respiratory abnormality Stenosis of carotid artery, unspecified laterality Fibromyalgia Mylagia and myositis, unspecified Insomnia, unspecified type Chronic obstructive pulmonary disease, unspecified COPD type (HCC) GERD without esophagitis Esophageal reflux Iron deficiency anemia, unspecified iron deficiency anemia type Rheumatoid arthritis involving multiple sites, unspecified rheumatoid factor presence Other osteoporosis with current pathological fracture with malunion, subsequent encounter Mild episode of recurrent major depressive disorder High risk medication use Encounter for long-term (current) use of other medications Rheumatoid arthritis involving multiple sites with positive rheumatoid factor (HCC) Localized osteoporosis without current pathological fracture [facility] Diagnosis Onset Date Resolution Status Admit Date Crohn disease acute January 14, 2025 8:19am Irritable bowel syndrome wit h diarrhea acute January 14, 2025 8:19am [facility] [employer] [facility] Work Phone: Evaluation note* Diagnosis Establishing care with new doctor, encounter for- Primary Other reasons for seeking consultation Breast screening, unspecified Rheumatoid arthritis Fibromyalgia Mylagia and myositis, unspecified Depression Depressive disorder, not elsewhere classified Asthma (HCC) Unspecified asthma Routine health maintenance Routine general medical examination at a health care facility Abdominal pain Abdominal pain, unspecified site Mycoplasma pneumonia- Primary Pneumonia due to Mycoplasma pneumoniae Asthma (HCC) Unspecified asthma Abdominal pain Abdominal pain, unspecified site Rheumatoid arthritis(714.0) Rheumatoid arthritis Fibromyalgia Mylagia and myositis, unspecified Rheumatoid arthritis(714.0)- Primary Rheumatoid arthritis Carotid artery disease Unspecified disorders of arteries and arterioles Mycoplasma pneumonia Pneumonia due to Mycoplasma pneumoniae Fibromyalgia- Primary Mylagia and myositis, unspecified Need for prophylactic vaccination and inoculation against influenza Hyperlipidemia LDL goal < 130 Other and unspecified hyperlipidemia Asthma (HCC) Unspecified asthma Depression Depressive disorder, not elsewhere classified Fracture of triquetrum of left wrist, closed Closed fracture of triquetral (cuneiform) bone of wrist Rheumatoid arthritis(714.0) Rheumatoid arthritis Routine health maintenance Routine general medical examination at a health care facility Routine adult health maintenance Routine general medical examination at a health care facility Carotid artery disease- Primary Unspecified disorders of arteries and arterioles Depression Depressive disorder, not elsewhere classified Fibromyalgia Mylagia and myositis, unspecified Asthma (HCC) Unspecified asthma Rheumatoid arthritis(714.0) Rheumatoid arthritis Insomnia Insomnia, unspecified Hyperlipidemia LDL goal < 130 Other and unspecified hyperlipidemia Carotid artery disease- Primary Unspecified disorders of arteries and arterioles Rheumatoid arthritis(714.0) Rheumatoid arthritis Fibromyalgia Mylagia and myositis, unspecified Depression Depressive disorder, not elsewhere classified Asthma (HCC) Unspecified asthma Hyperlipidemia LDL goal < 130 Other and unspecified hyperlipidemia GERD (gastroesophageal reflux disease) Esophageal reflux Anemia, unspecified- Primary History of peptic ulcer Personal history of peptic ulcer disease Rheumatoid arthritis involving multiple sites with positive rheumatoid factor (HCC)- Primary Anemia due to other cause Screening mammogram for high-risk patient Keratoconjunctivitis sicca, in Sjogren's syndrome (HCC) Sicca syndrome Recurrent major depression in partial remission Major depressive disorder, recurrent episode, in partial or unspecified remission Bunion, right Bunion Recurrent major depression in partial remission- Primary Major depressive disorder, recurrent episode, in partial or unspecified remission Rheumatoid arthritis involving multiple sites with positive rheumatoid factor (HCC) Left-sided carotid artery disease Vitamin D deficiency Unspecified vitamin D deficiency Iron 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) Gastroesophageal reflux disease without esophagitis Esophageal reflux Morbid obesity, unspecified obesity type (HCC) Recurrent major depressive disorder, in partial remission Hospital discharge follow-up- Primary Other follow-up examination Rheumatoid arthritis involving multiple sites with positive rheumatoid factor (HCC) Vitamin D deficiency Unspecified vitamin D deficiency Occlusion of left carotid artery Occlusion and stenosis of carotid artery without mention of cerebral infarction Recurrent major depressive disorder, in partial remission Left-sided carotid artery disease Encounter for screening mammogram for malignant neoplasm of breast Other screening mammogram Malaise and fatigue Other malaise and fatigue Iron deficiency Iron deficiency anemia, unspecified SOB (shortness of breath) Shortness of breath Anemia, unspecified type- Primary Rheumatoid arthritis involving multiple sites with positive rheumatoid factor (HCC) Need for vaccination Need for prophylactic vaccination and inoculation against unspecified single disease Fibromyalgia Mylagia and myositis, unspecified BPPV (benign paroxysmal positional vertigo), bilateral Osteoporosis Osteoporosis, unspecified Anemia, unspecified type- Primary 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, right Encounter for screening mammogram for high-risk patient Osteoporosis without current pathological fracture, unspecified osteoporosis type Mixed hyperlipidemia Morbid obesity, unspecified obesity type (HCC) SOB (shortness of breath) Shortness of breath Iron malabsorption (HCC) Other specified intestinal malabsorption Pre-operative examination- Primary Preoperative examination, unspecified Acute medial meniscus tear of right knee, subsequent encounter Chronic diastolic CHF (congestive heart failure) (HCC) Chronic diastolic heart failure Essential hypertension Unspecified essential hypertension Hyperlipidemia with target LDL less than 130 Other and unspecified hyperlipidemia PVC's (premature ventricular contractions) Other premature beats TY (dyspnea on exertion) Other dyspnea and respiratory abnormality Stenosis of carotid artery, unspecified laterality Fibromyalgia Mylagia and myositis, unspecified Insomnia, unspecified type Chronic obstructive pulmonary disease, unspecified COPD type (HCC) GERD without esophagitis Esophageal reflux Iron deficiency anemia, unspecified iron deficiency anemia type Rheumatoid arthritis involving multiple sites, unspecified rheumatoid factor presence Other osteoporosis with current pathological fracture with malunion, subsequent encounter Mild episode of recurrent major depressive disorder Crohn's disease without complication, unspecified gastrointestinal tract location ([facility])- Primary Irritable bowel syndrome with diarrhea Irritable bowel syndrome [facility] Establishing care with new doctor, encounter for- Primary Other reasons for seeking consultation Breast screening, unspecified Rheumatoid arthritis Fibromyalgia Mylagia and myositis, unspecified Depression Depressive disorder, not elsewhere classified Asthma (HCC) Unspecified asthma Routine health maintenance Routine general medical examination at a health care facility Abdominal pain Abdominal pain, unspecified site Mycoplasma pneumonia- Primary Pneumonia due to Mycoplasma pneumoniae Asthma (HCC) Unspecified asthma Abdominal pain Abdominal pain, unspecified site Rheumatoid arthritis(714.0) Rheumatoid arthritis Fibromyalgia Mylagia and myositis, unspecified Rheumatoid arthritis(714.0)- Primary Rheumatoid arthritis Carotid artery disease Unspecified disorders of arteries and arterioles Mycoplasma pneumonia Pneumonia due to Mycoplasma pneumoniae Fibromyalgia- Primary Mylagia and myositis, unspecified Need for prophylactic vaccination and inoculation against influenza Hyperlipidemia LDL goal < 130 Other and unspecified hyperlipidemia Asthma (HCC) Unspecified asthma Depression Depressive disorder, not elsewhere classified Fracture of triquetrum of left wrist, closed Closed fracture of triquetral (cuneiform) bone of wrist Rheumatoid arthritis(714.0) Rheumatoid arthritis Routine health maintenance Routine general medical examination at a health care facility Routine adult health maintenance Routine general medical examination at a health care facility Carotid artery disease- Primary Unspecified disorders of arteries and arterioles Depression Depressive disorder, not elsewhere classified Fibromyalgia Mylagia and myositis, unspecified Asthma (HCC) Unspecified asthma Rheumatoid arthritis(714.0) Rheumatoid arthritis Insomnia Insomnia, unspecified Hyperlipidemia LDL goal < 130 Other and unspecified hyperlipidemia Carotid artery disease- Primary Unspecified disorders of arteries and arterioles Rheumatoid arthritis(714.0) Rheumatoid arthritis Fibromyalgia Mylagia and myositis, unspecified Depression Depressive disorder, not elsewhere classified Asthma (HCC) Unspecified asthma Hyperlipidemia LDL goal < 130 Other and unspecified hyperlipidemia GERD (gastroesophageal reflux disease) Esophageal reflux Anemia, unspecified- Primary History of peptic ulcer Personal history of peptic ulcer disease Rheumatoid arthritis involving multiple sites with positive rheumatoid factor (HCC)- Primary Anemia due to other cause Screening mammogram for high-risk patient Keratoconjunctivitis sicca, in Sjogren's syndrome (HCC) Sicca syndrome Recurrent major depression in partial remission Major depressive disorder, recurrent episode, in partial or unspecified remission Bunion, right Bunion Recurrent major depression in partial remission- Primary Major depressive disorder, recurrent episode, in partial or unspecified remission Rheumatoid arthritis involving multiple sites with positive rheumatoid factor (HCC) Left-sided carotid artery disease Vitamin D deficiency Unspecified vitamin D deficiency Iron 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) Gastroesophageal reflux disease without esophagitis Esophageal reflux Morbid obesity, unspecified obesity type (HCC) Recurrent major depressive disorder, in partial remission Hospital discharge follow-up- Primary Other follow-up examination Rheumatoid arthritis involving multiple sites with positive rheumatoid factor (HCC) Vitamin D deficiency Unspecified vitamin D deficiency Occlusion of left carotid artery Occlusion and stenosis of carotid artery without mention of cerebral infarction Recurrent major depressive disorder, in partial remission Left-sided carotid artery disease Encounter for screening mammogram for malignant neoplasm of breast Other screening mammogram Malaise and fatigue Other malaise and fatigue Iron deficiency Iron deficiency anemia, unspecified SOB (shortness of breath) Shortness of breath Anemia, unspecified type- Primary Rheumatoid arthritis involving multiple sites with positive rheumatoid factor (HCC) Need for vaccination Need for prophylactic vaccination and inoculation against unspecified single disease Fibromyalgia Mylagia and myositis, unspecified BPPV (benign paroxysmal positional vertigo), bilateral Osteoporosis Osteoporosis, unspecified Anemia, unspecified type- Primary 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, right Encounter for screening mammogram for high-risk patient Osteoporosis without current pathological fracture, unspecified osteoporosis type Mixed hyperlipidemia Morbid obesity, unspecified obesity type (HCC) SOB (shortness of breath) Shortness of breath Iron malabsorption (HCC) Other specified intestinal malabsorption Pre-operative examination- Primary Preoperative examination, unspecified Acute medial meniscus tear of right knee, subsequent encounter Chronic diastolic CHF (congestive heart failure) (HCC) Chronic diastolic heart failure Essential hypertension Unspecified essential hypertension Hyperlipidemia with target LDL less than 130 Other and unspecified hyperlipidemia PVC's (premature ventricular contractions) Other premature beats TY (dyspnea on exertion) Other dyspnea and respiratory abnormality Stenosis of carotid artery, unspecified laterality Fibromyalgia Mylagia and myositis, unspecified Insomnia, unspecified type Chronic obstructive pulmonary disease, unspecified COPD type (HCC) GERD without esophagitis Esophageal reflux Iron deficiency anemia, unspecified iron deficiency anemia type Rheumatoid arthritis involving multiple sites, unspecified rheumatoid factor presence Other osteoporosis with current pathological fracture with malunion, subsequent encounter Mild episode of recurrent major depressive disorder Anal cancer (HCC) Malignant neoplasm of anus, unspecified site [facility] Establishing care with new doctor, encounter for- Primary Other reasons for seeking consultation Breast screening, unspecified Rheumatoid arthritis Fibromyalgia Mylagia and myositis, unspecified Depression Depressive disorder, not elsewhere classified Asthma (HCC) Unspecified asthma Routine health maintenance Routine general medical examination at a health care facility Abdominal pain Abdominal pain, unspecified site Mycoplasma pneumonia- Primary Pneumonia due to Mycoplasma pneumoniae Asthma (HCC) Unspecified asthma Abdominal pain Abdominal pain, unspecified site Rheumatoid arthritis(714.0) Rheumatoid arthritis Fibromyalgia Mylagia and myositis, unspecified Rheumatoid arthritis(714.0)- Primary Rheumatoid arthritis Carotid artery disease Unspecified disorders of arteries and arterioles Mycoplasma pneumonia Pneumonia due to Mycoplasma pneumoniae Fibromyalgia- Primary Mylagia and myositis, unspecified Need for prophylactic vaccination and inoculation against influenza Hyperlipidemia LDL goal < 130 Other and unspecified hyperlipidemia Asthma (HCC) Unspecified asthma Depression Depressive disorder, not elsewhere classified Fracture of triquetrum of left wrist, closed Closed fracture of triquetral (cuneiform) bone of wrist Rheumatoid arthritis(714.0) Rheumatoid arthritis Routine health maintenance Routine general medical examination at a health care facility Routine adult health maintenance Routine general medical examination at a health care facility Carotid artery disease- Primary Unspecified disorders of arteries and arterioles Depression Depressive disorder, not elsewhere classified Fibromyalgia Mylagia and myositis, unspecified Asthma (HCC) Unspecified asthma Rheumatoid arthritis(714.0) Rheumatoid arthritis Insomnia Insomnia, unspecified Hyperlipidemia LDL goal < 130 Other and unspecified hyperlipidemia Carotid artery disease- Primary Unspecified disorders of arteries and arterioles Rheumatoid arthritis(714.0) Rheumatoid arthritis Fibromyalgia Mylagia and myositis, unspecified Depression Depressive disorder, not elsewhere classified Asthma (HCC) Unspecified asthma Hyperlipidemia LDL goal < 130 Other and unspecified hyperlipidemia GERD (gastroesophageal reflux disease) Esophageal reflux Anemia, unspecified- Primary History of peptic ulcer Personal history of peptic ulcer disease Rheumatoid arthritis involving multiple sites with positive rheumatoid factor (HCC)- Primary Anemia due to other cause Screening mammogram for high-risk patient Keratoconjunctivitis sicca, in Sjogren's syndrome (HCC) Sicca syndrome Recurrent major depression in partial remission Major depressive disorder, recurrent episode, in partial or unspecified remission Bunion, right Bunion Recurrent major depression in partial remission- Primary Major depressive disorder, recurrent episode, in partial or unspecified remission Rheumatoid arthritis involving multiple sites with positive rheumatoid factor (HCC) Left-sided carotid artery disease Vitamin D deficiency Unspecified vitamin D deficiency Iron 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) Gastroesophageal reflux disease without esophagitis Esophageal reflux Morbid obesity, unspecified obesity type (HCC) Recurrent major depressive disorder, in partial remission Hospital discharge follow-up- Primary Other follow-up examination Rheumatoid arthritis involving multiple sites with positive rheumatoid factor (HCC) Vitamin D deficiency Unspecified vitamin D deficiency Occlusion of left carotid artery Occlusion and stenosis of carotid artery without mention of cerebral infarction Recurrent major depressive disorder, in partial remission Left-sided carotid artery disease Encounter for screening mammogram for malignant neoplasm of breast Other screening mammogram Malaise and fatigue Other malaise and fatigue Iron deficiency Iron deficiency anemia, unspecified SOB (shortness of breath) Shortness of breath Anemia, unspecified type- Primary Rheumatoid arthritis involving multiple sites with positive rheumatoid factor (HCC) Need for vaccination Need for prophylactic vaccination and inoculation against unspecified single disease Fibromyalgia Mylagia and myositis, unspecified BPPV (benign paroxysmal positional vertigo), bilateral Osteoporosis Osteoporosis, unspecified Anemia, unspecified type- Primary 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, right Encounter for screening mammogram for high-risk patient Osteoporosis without current pathological fracture, unspecified osteoporosis type Mixed hyperlipidemia Morbid obesity, unspecified obesity type (HCC) SOB (shortness of breath) Shortness of breath Iron malabsorption (HCC) Other specified intestinal malabsorption Pre-operative examination- Primary Preoperative examination, unspecified Acute medial meniscus tear of right knee, subsequent encounter Chronic diastolic CHF (congestive heart failure) (HCC) Chronic diastolic heart failure Essential hypertension Unspecified essential hypertension Hyperlipidemia with target LDL less than 130 Other and unspecified hyperlipidemia PVC's (premature ventricular contractions) Other premature beats TY (dyspnea on exertion) Other dyspnea and respiratory abnormality Stenosis of carotid artery, unspecified laterality Fibromyalgia Mylagia and myositis, unspecified Insomnia, unspecified type Chronic obstructive pulmonary disease, unspecified COPD type (HCC) GERD without esophagitis Esophageal reflux Iron deficiency anemia, unspecified iron deficiency anemia type Rheumatoid arthritis involving multiple sites, unspecified rheumatoid factor presence Other osteoporosis with current pathological fracture with malunion, subsequent encounter Mild episode of recurrent major depressive disorder Malignant neoplasm of anus (HCC) Malignant neoplasm of anus, unspecified site Anal cancer (HCC) Malignant neoplasm of anus, unspecified site [facility] Establishing care with new doctor, encounter for- Primary Other reasons for seeking consultation Breast screening, unspecified Rheumatoid arthritis Fibromyalgia Mylagia and myositis, unspecified Depression Depressive disorder, not elsewhere classified Asthma (HCC) Unspecified asthma Routine health maintenance Routine general medical examination at a health care facility Abdominal pain Abdominal pain, unspecified site Mycoplasma pneumonia- Primary Pneumonia due to Mycoplasma pneumoniae Asthma (HCC) Unspecified asthma Abdominal pain Abdominal pain, unspecified site Rheumatoid arthritis(714.0) Rheumatoid arthritis Fibromyalgia Mylagia and myositis, unspecified Rheumatoid arthritis(714.0)- Primary Rheumatoid arthritis Carotid artery disease Unspecified disorders of arteries and arterioles Mycoplasma pneumonia Pneumonia due to Mycoplasma pneumoniae Fibromyalgia- Primary Mylagia and myositis, unspecified Need for prophylactic vaccination and inoculation against influenza Hyperlipidemia LDL goal < 130 Other and unspecified hyperlipidemia Asthma (HCC) Unspecified asthma Depression Depressive disorder, not elsewhere classified Fracture of triquetrum of left wrist, closed Closed fracture of triquetral (cuneiform) bone of wrist Rheumatoid arthritis(714.0) Rheumatoid arthritis Routine health maintenance Routine general medical examination at a health care facility Routine adult health maintenance Routine general medical examination at a health care facility Carotid artery disease- Primary Unspecified disorders of arteries and arterioles Depression Depressive disorder, not elsewhere classified Fibromyalgia Mylagia and myositis, unspecified Asthma (HCC) Unspecified asthma Rheumatoid arthritis(714.0) Rheumatoid arthritis Insomnia Insomnia, unspecified Hyperlipidemia LDL goal < 130 Other and unspecified hyperlipidemia Carotid artery disease- Primary Unspecified disorders of arteries and arterioles Rheumatoid arthritis(714.0) Rheumatoid arthritis Fibromyalgia Mylagia and myositis, unspecified Depression Depressive disorder, not elsewhere classified Asthma (HCC) Unspecified asthma Hyperlipidemia LDL goal < 130 Other and unspecified hyperlipidemia GERD (gastroesophageal reflux disease) Esophageal reflux Anemia, unspecified- Primary History of peptic ulcer Personal history of peptic ulcer disease Rheumatoid arthritis involving multiple sites with positive rheumatoid factor (HCC)- Primary Anemia due to other cause Screening mammogram for high-risk patient Keratoconjunctivitis sicca, in Sjogren's syndrome (HCC) Sicca syndrome Recurrent major depression in partial remission Major depressive disorder, recurrent episode, in partial or unspecified remission Bunion, right Bunion Recurrent major depression in partial remission- Primary Major depressive disorder, recurrent episode, in partial or unspecified remission Rheumatoid arthritis involving multiple sites with positive rheumatoid factor (HCC) Left-sided carotid artery disease Vitamin D deficiency Unspecified vitamin D deficiency Iron 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) Gastroesophageal reflux disease without esophagitis Esophageal reflux Morbid obesity, unspecified obesity type (HCC) Recurrent major depressive disorder, in partial remission Hospital discharge follow-up- Primary Other follow-up examination Rheumatoid arthritis involving multiple sites with positive rheumatoid factor (HCC) Vitamin D deficiency Unspecified vitamin D deficiency Occlusion of left carotid artery Occlusion and stenosis of carotid artery without mention of cerebral infarction Recurrent major depressive disorder, in partial remission Left-sided carotid artery disease Encounter for screening mammogram for malignant neoplasm of breast Other screening mammogram Malaise and fatigue Other malaise and fatigue Iron deficiency Iron deficiency anemia, unspecified SOB (shortness of breath) Shortness of breath Anemia, unspecified type- Primary Rheumatoid arthritis involving multiple sites with positive rheumatoid factor (HCC) Need for vaccination Need for prophylactic vaccination and inoculation against unspecified single disease Fibromyalgia Mylagia and myositis, unspecified BPPV (benign paroxysmal positional vertigo), bilateral Osteoporosis Osteoporosis, unspecified Anemia, unspecified type- Primary 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, right Encounter for screening mammogram for high-risk patient Osteoporosis without current pathological fracture, unspecified osteoporosis type Mixed hyperlipidemia Morbid obesity, unspecified obesity type (HCC) SOB (shortness of breath) Shortness of breath Iron malabsorption (HCC) Other specified intestinal malabsorption Pre-operative examination- Primary Preoperative examination, unspecified Acute medial meniscus tear of right knee, subsequent encounter Chronic diastolic CHF (congestive heart failure) (HCC) Chronic diastolic heart failure Essential hypertension Unspecified essential hypertension Hyperlipidemia with target LDL less than 130 Other and unspecified hyperlipidemia PVC's (premature ventricular contractions) Other premature beats TY (dyspnea on exertion) Other dyspnea and respiratory abnormality Stenosis of carotid artery, unspecified laterality Fibromyalgia Mylagia and myositis, unspecified Insomnia, unspecified type Chronic obstructive pulmonary disease, unspecified COPD type (HCC) GERD without esophagitis Esophageal reflux Iron deficiency anemia, unspecified iron deficiency anemia type Rheumatoid arthritis involving multiple sites, unspecified rheumatoid factor presence Other osteoporosis with current pathological fracture with malunion, subsequent encounter Mild episode of recurrent major depressive disorder Rheumatoid arthritis involving multiple sites with positive rheumatoid factor (HCC) Vitamin D deficiency Unspecified vitamin D deficiency [facility] Establishing care with new doctor, encounter for- Primary Other reasons for seeking consultation Breast screening, unspecified Rheumatoid arthritis Fibromyalgia Mylagia and myositis, unspecified Depression Depressive disorder, not elsewhere classified Asthma (HCC) Unspecified asthma Routine health maintenance Routine general medical examination at a health care facility Abdominal pain Abdominal pain, unspecified site Mycoplasma pneumonia- Primary Pneumonia due to Mycoplasma pneumoniae Asthma (HCC) Unspecified asthma Abdominal pain Abdominal pain, unspecified site Rheumatoid arthritis(714.0) Rheumatoid arthritis Fibromyalgia Mylagia and myositis, unspecified Rheumatoid arthritis(714.0)- Primary Rheumatoid arthritis Carotid artery disease Unspecified disorders of arteries and arterioles Mycoplasma pneumonia Pneumonia due to Mycoplasma pneumoniae Fibromyalgia- Primary Mylagia and myositis, unspecified Need for prophylactic vaccination and inoculation against influenza Hyperlipidemia LDL goal < 130 Other and unspecified hyperlipidemia Asthma (HCC) Unspecified asthma Depression Depressive disorder, not elsewhere classified Fracture of triquetrum of left wrist, closed Closed fracture of triquetral (cuneiform) bone of wrist Rheumatoid arthritis(714.0) Rheumatoid arthritis Routine health maintenance Routine general medical examination at a health care facility Routine adult health maintenance Routine general medical examination at a health care facility Carotid artery disease- Primary Unspecified disorders of arteries and arterioles Depression Depressive disorder, not elsewhere classified Fibromyalgia Mylagia and myositis, unspecified Asthma (HCC) Unspecified asthma Rheumatoid arthritis(714.0) Rheumatoid arthritis Insomnia Insomnia, unspecified Hyperlipidemia LDL goal < 130 Other and unspecified hyperlipidemia Carotid artery disease- Primary Unspecified disorders of arteries and arterioles Rheumatoid arthritis(714.0) Rheumatoid arthritis Fibromyalgia Mylagia and myositis, unspecified Depression Depressive disorder, not elsewhere classified Asthma (HCC) Unspecified asthma Hyperlipidemia LDL goal < 130 Other and unspecified hyperlipidemia GERD (gastroesophageal reflux disease) Esophageal reflux Anemia, unspecified- Primary History of peptic ulcer Personal history of peptic ulcer disease Rheumatoid arthritis involving multiple sites with positive rheumatoid factor (HCC)- Primary Anemia due to other cause Screening mammogram for high-risk patient Keratoconjunctivitis sicca, in Sjogren's syndrome (HCC) Sicca syndrome Recurrent major depression in partial remission Major depressive disorder, recurrent episode, in partial or unspecified remission Bunion, right Bunion Recurrent major depression in partial remission- Primary Major depressive disorder, recurrent episode, in partial or unspecified remission Rheumatoid arthritis involving multiple sites with positive rheumatoid factor (HCC) Left-sided carotid artery disease Vitamin D deficiency Unspecified vitamin D deficiency Iron 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) Gastroesophageal reflux disease without esophagitis Esophageal reflux Morbid obesity, unspecified obesity type (HCC) Recurrent major depressive disorder, in partial remission Hospital discharge follow-up- Primary Other follow-up examination Rheumatoid arthritis involving multiple sites with positive rheumatoid factor (HCC) Vitamin D deficiency Unspecified vitamin D deficiency Occlusion of left carotid artery Occlusion and stenosis of carotid artery without mention of cerebral infarction Recurrent major depressive disorder, in partial remission Left-sided carotid artery disease Encounter for screening mammogram for malignant neoplasm of breast Other screening mammogram Malaise and fatigue Other malaise and fatigue Iron deficiency Iron deficiency anemia, unspecified SOB (shortness of breath) Shortness of breath Anemia, unspecified type- Primary Rheumatoid arthritis involving multiple sites with positive rheumatoid factor (HCC) Need for vaccination Need for prophylactic vaccination and inoculation against unspecified single disease Fibromyalgia Mylagia and myositis, unspecified BPPV (benign paroxysmal positional vertigo), bilateral Osteoporosis Osteoporosis, unspecified Anemia, unspecified type- Primary 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, right Encounter for screening mammogram for high-risk patient Osteoporosis without current pathological fracture, unspecified osteoporosis type Mixed hyperlipidemia Morbid obesity, unspecified obesity type (HCC) SOB (shortness of breath) Shortness of breath Iron malabsorption (HCC) Other specified intestinal malabsorption Pre-operative examination- Primary Preoperative examination, unspecified Acute medial meniscus tear of right knee, subsequent encounter Chronic diastolic CHF (congestive heart failure) (HCC) Chronic diastolic heart failure Essential hypertension Unspecified essential hypertension Hyperlipidemia with target LDL less than 130 Other and unspecified hyperlipidemia PVC's (premature ventricular contractions) Other premature beats TY (dyspnea on exertion) Other dyspnea and respiratory abnormality Stenosis of carotid artery, unspecified laterality Fibromyalgia Mylagia and myositis, unspecified Insomnia, unspecified type Chronic obstructive pulmonary disease, unspecified COPD type (HCC) GERD without esophagitis Esophageal reflux Iron deficiency anemia, unspecified iron deficiency anemia type Rheumatoid arthritis involving multiple sites, unspecified rheumatoid factor presence Other osteoporosis with current pathological fracture with malunion, subsequent encounter Mild episode of recurrent major depressive disorder Other osteoporosis without current pathological fracture- Primary Rheumatoid arthritis involving multiple sites with positive rheumatoid factor (HCC) documented [facility] this [facility] Establishing care with new doctor, encounter for- Primary Other reasons for seeking consultation Breast screening, unspecified Rheumatoid arthritis Fibromyalgia Mylagia and myositis, unspecified Depression Depressive disorder, not elsewhere classified Asthma (HCC) Unspecified asthma Routine health maintenance Routine general medical examination at a health care facility Abdominal pain Abdominal pain, unspecified site Mycoplasma pneumonia- Primary Pneumonia due to Mycoplasma pneumoniae Asthma (HCC) Unspecified asthma Abdominal pain Abdominal pain, unspecified site Rheumatoid arthritis(714.0) Rheumatoid arthritis Fibromyalgia Mylagia and myositis, unspecified Rheumatoid arthritis(714.0)- Primary Rheumatoid arthritis Carotid artery disease Unspecified disorders of arteries and arterioles Mycoplasma pneumonia Pneumonia due to Mycoplasma pneumoniae Fibromyalgia- Primary Mylagia and myositis, unspecified Need for prophylactic vaccination and inoculation against influenza Hyperlipidemia LDL goal < 130 Other and unspecified hyperlipidemia Asthma (HCC) Unspecified asthma Depression Depressive disorder, not elsewhere classified Fracture of triquetrum of left wrist, closed Closed fracture of triquetral (cuneiform) bone of wrist Rheumatoid arthritis(714.0) Rheumatoid arthritis Routine health maintenance Routine general medical examination at a health care facility Routine adult health maintenance Routine general medical examination at a health care facility Carotid artery disease- Primary Unspecified disorders of arteries and arterioles Depression Depressive disorder, not elsewhere classified Fibromyalgia Mylagia and myositis, unspecified Asthma (HCC) Unspecified asthma Rheumatoid arthritis(714.0) Rheumatoid arthritis Insomnia Insomnia, unspecified Hyperlipidemia LDL goal < 130 Other and unspecified hyperlipidemia Carotid artery disease- Primary Unspecified disorders of arteries and arterioles Rheumatoid arthritis(714.0) Rheumatoid arthritis Fibromyalgia Mylagia and myositis, unspecified Depression Depressive disorder, not elsewhere classified Asthma (HCC) Unspecified asthma Hyperlipidemia LDL goal < 130 Other and unspecified hyperlipidemia GERD (gastroesophageal reflux disease) Esophageal reflux Anemia, unspecified- Primary History of peptic ulcer Personal history of peptic ulcer disease Rheumatoid arthritis involving multiple sites with positive rheumatoid factor (HCC)- Primary Anemia due to other cause Screening mammogram for high-risk patient Keratoconjunctivitis sicca, in Sjogren's syndrome (HCC) Sicca syndrome Recurrent major depression in partial remission Major depressive disorder, recurrent episode, in partial or unspecified remission Bunion, right Bunion Recurrent major depression in partial remission- Primary Major depressive disorder, recurrent episode, in partial or unspecified remission Rheumatoid arthritis involving multiple sites with positive rheumatoid factor (HCC) Left-sided carotid artery disease Vitamin D deficiency Unspecified vitamin D deficiency Iron 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) Gastroesophageal reflux disease without esophagitis Esophageal reflux Morbid obesity, unspecified obesity type (HCC) Recurrent major depressive disorder, in partial remission Hospital discharge follow-up- Primary Other follow-up examination Rheumatoid arthritis involving multiple sites with positive rheumatoid factor (HCC) Vitamin D deficiency Unspecified vitamin D deficiency Occlusion of left carotid artery Occlusion and stenosis of carotid artery without mention of cerebral infarction Recurrent major depressive disorder, in partial remission Left-sided carotid artery disease Encounter for screening mammogram for malignant neoplasm of breast Other screening mammogram Malaise and fatigue Other malaise and fatigue Iron deficiency Iron deficiency anemia, unspecified SOB (shortness of breath) Shortness of breath Anemia, unspecified type- Primary Rheumatoid arthritis involving multiple sites with positive rheumatoid factor (HCC) Need for vaccination Need for prophylactic vaccination and inoculation against unspecified single disease Fibromyalgia Mylagia and myositis, unspecified BPPV (benign paroxysmal positional vertigo), bilateral Osteoporosis Osteoporosis, unspecified Anemia, unspecified type- Primary 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, right Encounter for screening mammogram for high-risk patient Osteoporosis without current pathological fracture, unspecified osteoporosis type Mixed hyperlipidemia Morbid obesity, unspecified obesity type (HCC) SOB (shortness of breath) Shortness of breath Iron malabsorption (HCC) Other specified intestinal malabsorption Pre-operative examination- Primary Preoperative examination, unspecified Acute medial meniscus tear of right knee, subsequent encounter Chronic diastolic CHF (congestive heart failure) (HCC) Chronic diastolic heart failure Essential hypertension Unspecified essential hypertension Hyperlipidemia with target LDL less than 130 Other and unspecified hyperlipidemia PVC's (premature ventricular contractions) Other premature beats TY (dyspnea on exertion) Other dyspnea and respiratory abnormality Stenosis of carotid artery, unspecified laterality Fibromyalgia Mylagia and myositis, unspecified Insomnia, unspecified type Chronic obstructive pulmonary disease, unspecified COPD type (HCC) GERD without esophagitis Esophageal reflux Iron deficiency anemia, unspecified iron deficiency anemia type Rheumatoid arthritis involving multiple sites, unspecified rheumatoid factor presence Other osteoporosis with current pathological fracture with malunion, subsequent encounter Mild episode of recurrent major depressive disorder Other osteoporosis without current pathological fracture- Primary Rheumatoid arthritis involving multiple sites with positive rheumatoid factor (HCC) documented in this encounter [facility] Author Andrez Pitts [facility] November 06, 2022 2:47pm Note Date/Time November 06, 2022 2:4 7pm [facility] Medical Records Department [address] [place] [address] History & Physical Exam 11/06/22 1447 MR#: [id number] Acct: [id number] Name: MARIMAR WANG Rep #:[id number] : 1960 62 From: Andrez Pitts DO PCP: Julio Arriaga NP-C Status:REG S [facility] Location: [place] [address] History and Physical Date of Admission: 11/06/22 ?62 F who presents to the office today to transfer care from another GI practice. She has chronic nausea, chronic diarrhea. In 2018 she had fundoplication for very large hiatal hernia that was in her chest and was causing dyspnea, surgery was done at [facility]. Her surgeon sent her to [facility] for chronic nausea which began after fundoplication, whichisn't only post-prandial, gets dry heaves, relieved with phenergan--takes it 1-2x every day. Has nausea most days. Has poor appetite so only eats once a day. Has lost 30 lbs unintentionally in past 4 months. Has early satiety. Occas has to focus on swallowing, will have to think about swallowing saliva. Doesn't think this is just since her CVA. Food not getting stuck. She has Sjogren's so she drinks a lot when eating. No heartburn or acid reflux since fundoplication. She used to take esomeprazole. No hx Cartwright's esophagus. One hour after eating she has diarrhea. Stool is always loose, never formed, this started about 6 mos ago. No melena or hematochezia. Rare nocturnal diarrhea. Gets painful abd cramps before diarrhea. If she took hyoscyamine before eating, then it helped minimize the diarrhea. No relief with dicyclomine.Hasn't been on cholestyramine or colestipol. Had HIDA scan, US, gastric emptying study at [facility], we'll request records 08/2017 EGD normal esophagus/stomach/duodenum; neg celiac on bxs from duodenum, neg H pylori; colonoscopy diverticulosis, no bxs PMH includes IBS, diverticulitis, CVA, RA, Sjogren's, former smoker, OA, asthma,CHF, coronary artery stenosis, hyperlipidemia, iron malabsorption, anemia, osteoporosis, vit D deficiency PSH includes fundoplication, tonsillectomy, , shoulder, knee, hip FH includes mother with UC ROS Const Constitutional: Positive for fatigue, frequent falls, headache(s) and weight change ENT ENT: Positive for headache(s); No difficulty swallowing Cardio Cardiology: Positive for leg pain with exertion Gastro GI: Positive for abdominal pain, bloating, diarrhea and nausea/dyspepsia; No belching, change in bowel habits, change in stool character, coffee ground emesis, constipation, cramping, heartburn, difficulty swallowing, feeling full early, excessive flatus, incontinent of stools, Vomiting blood/hematemesis, Blood in stool, loose stools, Black,tarry stools, pain with swallowing, vomitingor other Musc Musculoskeletal: Positive for abnormal gait, joint pain, back pain, joint swelling, muscle cramps, muscle weakness, stiffness, Arthritis, leg pain at night and leg pain with exertion Skin Skin: No yellowing of the eye or itchy eyes Neuro Neurology: Positive for abnormal gait, dizziness, frequent falls, headache(s) and tremor(s) Psych Psychiatric: Positive for anxiety and Positive for depression Endo Endocrine: Positive for fatigue and weight change Aller/Imm Allergy/Immunologic: No itchy eyes Andrew/Lymp Hematologic/Lymphatic: Positive for easy bruising; No easy bleeding Exam Const General: cooperative and comfortable Nutritional Appearance: obese Orientation: alert, awake and oriented x3 Other: walks with a cane Eyes Sclera: sclerae normal Resp Effort & Inspection: normal respiratory effort GI Inspection: normal to inspection Palpation: soft, no hepatosplenomegaly, no masses and nontender Skin General: no rashes or lesions noted Psych Mood: euthymic mood Quality Reporting Tobacco Screening ([facility] 138) Smoking Status: Former smoker Assessment and Plan Assessment and Plan (1) Nausea: ?Status:?Chronic ?Plan: 62 yr old female with chronic nausea since having fundoplication for large hiatal hernia in 2019, as well as more recent onset of postprandial diarrhea Labs today We'll get records from previous GI, then decide re w/u f/u 2-3 mos rx hyoscyamine since she thinks it was somewhat helpful for cramps and diarrhea continue phenergan for nausea (2) Diarrhea: ?Status:?Chronic ?Plan: see above ? ? ? Orders: Orders Comprehensive Metabolic Profil Today K91.1 - Postgastric surgery syndromes, R11.0 - Nausea ? CRP Today K91.1 - Postgastric surgery syndromes, R11.0 - Nausea ? LDH Today K91.1 - Postgastric surgery syndromes, R11.0 - Nausea ? CBC W/Diff, Automated Today K91.1 - Postgastric surgery syndromes, R10.9 - Unspecified abdominal pain, R11.0 - Nausea ? Erythrocyte Sed Rate Today K91.1 - Postgastric surgery syndromes, R11.0 - Nausea? YADIEL Comprehensive Panel Today K91.1 - Postgastric surgery syndromes, R11.0 - Nausea ? Calprotectin, Stool Today K91.1 - Postgastric surgery syndromes, R11.0 - Nausea ? Stool Lactoferrin/WBC Today K91.1 - Postgastric surgery syndromes, R11.0 - Nausea ? ANCA Today K91.1 - Postgastric surgery syndromes, R11.0 - Nausea ? Celiac Disease Profile Today K91.1 - Postgastric surgery syndromes, R11.0 - Nausea ? Immunoglobulins G/A/M/E Today K91.1 - Postgastric surgery syndromes, R11.0 - Nausea ? ANTONIO + Protein Elect, Serum Today K91.1 - Postgastric surgery syndromes, R11.0 - Nausea ? Miscellaneous Lab Procedure Today K91.1 - Postgastric surgery syndromes, R11.0 -Nausea ? Medications: New hyoscyamine sulfate 0.125 mg? PO BID-QID PRN 60 tabs 0RF josé sea ? ? I have examined the patient and the H&P has been reviewed. There are no clinicalchanges since date of exam. 11/06/22 1447 <Electronically signed by Andrez Pitts DO> Cosigner Signature (if applicable): CC: SINAI Arriaga; Andrez Pitts, ~ Signed [facility] Work Phone: Hospital course Narrative No data available for this section [facility] Hospital Discharge instructions No data available for this section [facility] Hospital Discharge instructions Additional Instructions CT with no PE. Cardiac workup negative. CT abdomen pelvis no infectious findings. Urine retention with Ash catheter. Likely from your cancer with radiation therapy. Follow-up with urology. Keep your follow-up with your doctors.[facility] Work Phone: Hospital Discharge instructions Additional Instructions Your head CT showed no sign of skull fracture or brain bleed. Your hip x-rays show degenerative changes without fracture or damage to your previous hardware. You may ice the areas that are painful to help reduce pain and speed healing as well as take the prescribed Percocet. Elpu-mae-rpesjrf medication such as lidocaine patches or Salonpas may help as well. Return to the ER should [facility] have any [facility] Work Phone: Hospital Discharge instructions Additional Instructions I am not sure what is causing her chronic left sacral and buttock pain. Your CT of the pelvis is normal other than osteoporosis. I prescribed Austin for pain. Take a stool softener or MiraLAX while on this. Follow-up with your primary care doctor.[facility] Work Phone: Progress note No data available for this section [facility] Reason for referral (narrative)* Diagnostic Procedure Only (Routine) - Pending Review Specialty Diagnoses / Procedures Referred By Jordy t Referred To Contact [facility] Diagnoses Encounter for screening mammogram for breast cancer Procedures MARIA TERESA SCREENING W CAMERON SCREENING DIGITAL BREAST TOMOSYNTHESIS BI SCREENING MAMMOGRAPHY BI 2-VIEW BREAST INC Selene Valencia MD [address] [place] [address] [facility] [address] [place] [address] Referral ID Status Reason Start Date Expiration Date Visits Requested Visits Authorized [id number] Pending Review Auto-Generat ed Referral 01/24/2022 02/23/2023 1 1 [facility] for referral (narrative)* Diagnostic Procedure Only (Routine) - Closed Specialty Diagnoses / Procedures Referred By Jordy t Referred To Contact XR IMAGING Diagnoses Pain in left hip Fall, initial encounter Procedures XR HIP GENERAL 3V PELV/AP/LAT LEFT RADEX HIP UNILATERAL WITH PELVIS 2-3 VIEWS Sarah Pearson PA-C [address] [place] [address] [facility] Referral ID Status Reason Start Date Expiration Date V isits Requested Visits Authorized [id number] Closed Auto-Generate d Referral 06/26/2022 07/26/2023 1 1 [facility] for referral (narrative)* Diagnostic Procedure Only (Routine) - Closed Specialty Diagnoses / Procedures Referred By Kevinac t Referred To Contact XR IMAGING Diagnoses Pain in left hip Fall, initial encounter Procedures XR HIP GENERAL 3V PELV/AP/LAT LEFT RADEX HIP UNILATERAL WITH PELVIS 2-3 VIEWS Sarah Pearson PA-C [address] [place] [address] X[facility] Imaging Referral ID Status Reason Start Date Expiration Date V isits Requested Visits Authorized [id number] Closed Auto-Generate d Referral 06/26/2022 07/26/2023 1 1 [facility] for referral (narrative)* Diagnostic Procedure Only (Routine) - New Request Specialty Diagnoses / Procedures Referred By Contac t Referred To Contact XR IMAGING Diagnoses Osteoporosis, unspecified osteoporosis type, unspecified pathological fracture presence Procedures DXA-AXIAL SKELETON DXA BONE DENSITY STUDY 1/> SITES AXIAL Sarah Rivera PA-C [address] [place] [address] [place] [address] Referral ID Status Reason Start Date Expiration Date Visits Requested Visits Authorized [id number] New Request Auto-Generat ed Referral 06/14/2025 1 1 [facility] for referral (narrative)No reason for referral information availableWTr[facility] Work Phone: Reason for visit Narrative* Diagnostic Procedure Only (Routine) - Closed Specialty Diagnoses / Procedures Referred By Contac t Referred To Contact XR IMAGING Diagnoses Pain in left hip Fall, initial encounter Procedures XR HIP GENERAL 3V PELV/AP/LAT LEFT RADEX HIP UNILATERAL WITH PELVIS 2-3 VIEWS Sarah Pearson PA-C [address] [facility] [address] [place] [address] X[facility] Imaging Referral ID Status Reason Start Date Expiration Date V isits Requested Visits Authorized [id number] Closed Auto-Generate d Referral 06/26/2022 07/26/2023 1 1 [facility] for visit Narrative* Diagnostic Procedure Only (Routine) - Closed Specialty Diagnoses / Procedures Referred By Contac t Referred To Contact XR IMAGING Diagnoses Osteoporosis, unspecified osteoporosis type, unspecified pathological fracture presence Procedures DXA-AXIAL SKELETON DXA BONE DENSITY STUDY 1/> SITES AXIAL Sarah Rivera PA-C [address] [place] [address] [place] [address] Referral ID Status Reason Start Date Expiration Date V isits Requested Visits Authorized [id number] Closed Auto-Generate d Referral 05/15/2024 06/14/2025 1 1 [facility] for visit Narrative* MRI/CT (Urgent) - Closed Specialty Diagnoses / Procedures Referred By Contac t Referred To Contact [facility] Diagnoses Anal cancer (HCC) Procedures MRI PELVIS WO/W IVCON MRI PELVIS W/O & W/CONTRAST MATERIAL Josh Bennett DO [address] [place] [address] Phone: tel: fax: [place] [address] Referral ID Status Reason Start Date Expiration Date V isits Requested Visits Authorized [id number] Closed Auto-Generate d Referral 09/16/2024 10/16/2025 1 1 [facility] for visit Narrative* Diagnostic Procedure Only (Routine) - Closed Specialty Diagnoses / Procedures Referred By Contac t Referred To Contact [facility] Diagnoses Encounter for gynecological examination (general) (routine) without abnormal findings Encounter for screening mammogram for breast cancer Procedures MARIA TERESA SCREENING W CAMERON SCREENING DIGITAL BREAST TOMOSYNTHESIS BI SCREENING MAMMOGRAPHY BI 2-VIEW BREAST INC Juan José Chen MD [address] [place] [address] Phone: tel: fax: [facility] [address] [place] [address] Referral ID Status Reason Start Date Expiration Date V isits Requested Visits Authorized [id number] Closed Auto-Generate d Referral 09/30/2024 10/30/2025 1 1 [facility] for visit Narrative* MRI/CT (Routine) - Closed Specialty Diagnoses / Procedures Referred By Contac t Referred To Contact MR IMAGING Diagnoses Malignant neoplasm of anus (HCC) Anal cancer (HCC) Procedures MRI PELVIS WO/W IVCON MRI PELVIS W/O & W/CONTRAST MATERIAL Delvin Ron, JUAN CARLOS.[employer]PLER [address] [place] [address] Phone: tel: fax: [place] [address] Referral ID Status Reason Start Date Expiration Date V isits Requested Visits Authorized [id number] Closed Auto-Generate d Referral 02/01/2025 01/01/2026 1 1 [facility] Summary Purpose Family History No Family History Records Found Relationship Condition Age at Onset Recorded Date/T jay mother Asthma Unknown Hypertension Unknown Kidney disorder Unknown father Asthma Unknown Myocardial infarction Unknown daughter Asthma Unknown Diabetes mellitus Unknown sister Asthma Unknown Advance Directives No Advanced Directives Records FoundDocuments on File Type Date Recorded Patient Fumigator And Sterilizer Expl anation Advance Directive(s) 08/15/2021 1:41 PM Advance Directive(s) 07/12/2021 8:35 AM Advance Directive(s) 07/07/2020 7:36 AM Advance Directive(s) 05/04/2020 9:48 AM Advance Directive(s) 04/28/2020 9:39 AM Advance Directive(s) 02/17/2020 11:33 AM Advance Directive(s) 10/02/2019 12:26 PM Advance Directive(s) 09/09/2019 5:15 PM Advance Directive(s) 05/07/2019 9:10 AM Advance Directive(s) 05/07/2019 9:13 AM Advance Directive(s) 02/18/2019 9:09 AM Advance Directive(s) 02/12/2019 8:36 AM Advance Directive(s) 09/23/2017 1:49 PM Advance Directive(s) 05/07/2016 10:39 AM Documents on File Type Date Recorded Patient Fumigator And Sterilizer Expl anation Advance Directive(s) 08/15/2021 1:41 PM Advance Directive(s) 07/12/2021 8:35 AM Advance Directive(s) 07/07/2020 7:36 AM Advance Directive(s) 05/04/2020 9:48 AM Advance Directive(s) 04/28/2020 9:39 AM Advance Directive(s) 02/17/2020 11:33 AM Advance Directive(s) 10/02/2019 12:26 PM Advance Directive(s) 09/09/2019 5:15 PM Advance Directive(s) 05/07/2019 9:10 AM Advance Directive(s) 05/07/2019 9:13 AM Advance Directive(s) 02/18/2019 9:09 AM Advance Directive(s) 02/12/2019 8:36 AM Advance Directive(s) 09/23/2017 1:49 PM Advance Directive(s) 05/07/2016 10:39 AM Documents on File Type Date Recorded Patient Fumigator And Sterilizer Expl anation Advance Directive(s) 05/07/2019 9:13 AM Documents on File Type Date Recorded Patient Fumigator And Sterilizer Expl anation Advance Directive(s) 05/07/2019 9:13 AM Advance Directive Response Recorded Date/ Time Advance Directives No December 12 6 7:43pm Living Will No January 24, 2020 10:32am Power of Torque Tester No January 23 0 10:32am Advance Directive Response Recorded Date/ Time Advance Directives No December 12 6 8:43pm Living Will No January 24, 2020 11:32am Power of Torque Tester No January 23 0 11:32am Advance Directive Response Recorded Date/ Time Advance Directives No December 12 6 8:43pm Living Will No November 05, 2022 10:02am Power of Torque Tester No November 05 10:02am Advance Directive Response Recorded Date/ Time Advance Directives No December 12 6 8:43pm Living Will No January 09, 2023 2:02pm Power of Torque Tester No January 09 3 2:02pm Advance Directive Response Recorded Date/ Time Advance Directives No December 12 6 8:43pm Living Will Yes January 23, 2023 12:51pm Power of Torque Tester No January 23 12:51pm Advance Directive Response Recorded Date/ Time Advance Directives No December 12 6 7:43pm Living Will Yes January 23, 2023 11:51am Power of Torque Tester No January 23 11:51am Advance Directive Response Recorded Date/ Time Name of Medical Power of Torque Tester Anabel fontenot October 19, 2023 4:15pm Advance Directives No December 12 6 8:43pm Living Will Yes October 19, 2023 4:15pm Power of Torque Tester Yes October 18 4:15pm Documents on File Type Date Recorded Patient Fumigator And Sterilizer Expl anation Advance Directive(s) 10/13/2024 8:49 AM Documents on File Type Date Recorded Patient Fumigator And Sterilizer Expl anation Advance Directive(s) 10/13/2024 8:49 AM Advance Directive Response Recorded Date/ Time Living Will Yes March 17 8:51am Power of Torque Tester Yes March 17, 024 8:51am Living Will Yes September 02 7:53pm Power of Torque Tester Yes September 02, 2024 7:53pm Name of Medical Power of Torque Tester Annabel keita September 02, 2024 7:53pm Living Will No September 24 8:18pm Power of Torque Tester No September 24, 2024 8:18pm Advance Directives No December 12 8:43pm Advance Directive Response Recorded Date/ Time Living Will Yes March 17 8:51am Do you have a Healthcare Pow er of Torque Tester? Yes March 17, 2024 8:51am Living Will Yes September 02 7:53pm Do you have a Healthcare Pow er of Torque Tester? Yes September 02, 2024 7:53pm Name of Medical Power of Torque Tester Annabel Lateshaekarly l September 02, 2024 7:53pm Living Will No September 24 8:18pm Do you have a Healthcare Pow er of Torque Tester? No September 24, 2024 8:18pm Living Will Yes October 24, 2024 9:07pm Do you have a Healthcare Pow er of Torque Tester? Yes October 24, 2024 9:07pm Name of Medical Power of Torque Tester annabel banda al October 24, 2024 9:07pm Advance Directives No December 12 8:43pm Advance Directive Response Recorded Date/ Time Living Will Yes March 17 8:51am Do you have a Healthcare Pow er of Torque Tester? Yes March 17, 2024 8:51am Living Will Yes September 02 7:53pm Do you have a Healthcare Pow er of Torque Tester? Yes September 02, 2024 7:53pm Name of Medical Power of Torque Tester Annabel Banda neela September 02, 2024 7:53pm Living Will No October 30, 2024 1:05am Do you have a Healthcare Pow er of Torque Tester? No October 30, 2024 1:05am Living Will No September 24 8:18pm Do you have a Healthcare Pow er of Torque Tester? No September 24, 2024 8:18pm Living Will Yes October 24, 2024 9:07pm Do you have a Healthcare Pow er of Torque Tester? Yes October 24, 2024 9:07pm Name of Medical Power of Torque Tester annabel lateshajayden al October 24, 2024 9:07pm Advance Directives No December 12 8:43pm Advance Directive Response Recorded Date/ Time Living Will Yes September 02 7:53pm Do you have a Healthcare Pow er of Torque Tester? Yes September 02, 2024 7:53pm Name of Medical Power of Torque Tester Annabel keita September 02, 2024 7:53pm Living Will No October 30, 2024 1:05am Do you have a Healthcare Pow er of Torque Tester? No October 30, 2024 1:05am Do you have a Healthcare Pow er of Torque Tester? No December 27, 2024 3:23pm Living Will No September 24 025 8:18pm Do you have a Healthcare Pow er of Torque Tester? No September 24, 2024 8:18pm Living Will Yes October 24, 2024 9:07pm Do you have a Healthcare Pow er of Torque Tester? Yes October 24, 2024 9:07pm Name of Medical Power of Torque Tester annabel olvera October 24, 2024 9:07pm Advance Directives No December 12 6 8:43pm Advance Directive Response Recorded Date/ Time Living Will No October 30, 2024 1:05am Do you have a Healthcare Pow er of Torque Tester? No October 30, 2024 1:05am Do you have a Healthcare Pow er of Torque Tester? No December 27, 2024 3:23pm Living Will No September 24 025 8:18pm Do you have a Healthcare Pow er of Torque Tester? No September 24, 2024 8:18pm Living Will Yes October 24, 2024 9:07pm Do you have a Healthcare Pow er of Torque Tester? Yes October 24, 2024 9:07pm Name of Medical Power of Torque Tester annabel olvera October 24, 2024 9:07pm Advance Directives No December 12 6 8:43pm Advance Directive Response Recorded Date/ Time Living Will No October 30, 2024 1:05am Do you have a Healthcare Power of Torque Tester? No October 30, 2024 1:05am Do you have a Healthcare Power of Torque Tester? No December 27, 2024 3:23pm Living Will Yes October 24, 2024 9:07pm Do you have a Healthcare Power of Torque Tester? Yes October 24, 2024 9:07pm Name of Medical Power of Torque Tester annabel olvera October 24, 2024 9:07pm Advance Directives No December 12 8:43pm Medications Administered Section Inactive Administered Medications - up to 3 most recent administrations Medication Order MAR Action Action Date Dose Rate Site abatacept 750 mg in NaCl 0.9% 100 mL (ORENCIA) 750 mg (set by rule on 04/21/2019 2:30 PM), INTRAVENOUS, at 200 mL/hr, Administer over 30 Minutes, ONCE, 1 dose, On Sat11/02/21 at 1100, Total Volume: 100 mL EXP 03/16/21 1400 Administer with 0.2 micron filter. New Bag/Syringe/Bottle 11/02/2021 11:15 AM EDT 750 mg 200 mL/hr Inactive Administered Medications - up to 3 most recent administrations Medication Order MAR Action Action Date Dose Rate Site abatacept 750 mg in NaCl 0.9% 100 mL (ORENCIA) 750 mg (set by rule on 11/27/2021 12:54 PM), INTRAVENOUS, at 200 mL/hr, Administer over 30 Minutes, ONCE, 1 dose, On Sat11/30/21 at 1030, Total Volume: 100 mL EXP 11/30/21 1000 Administer with 0.2 micron filter. New Bag/Syringe/Bottle 11/30/2021 10:39 AM EDT 750 mg 200 mL/hr Inactive Administered Medications - up to 3 most recent administrations Medication Order MAR Action Action Date Dose Rate Site abatacept 750 mg in NaCl 0.9% 100 mL (ORENCIA) 750 mg (set by rule on 12/22/2021 2:03 PM), INTRAVENOUS, at 200 mL/hr, Administer over 30 Minutes, ONCE, 1 dose, On Sat12/28/21 at 1130, Total Volume: 100 mL EXP 12/29/21 1130 Administer with 0.2 micron filter. New Bag/Syringe/Bottle 12/28/2021 11:30 AM EDT 750 mg 200 mL/hr Inactive Administered Medications - up to 3 most recent administrations Medication Order MAR Action Action Date Dose Rate Site abatacept 750 mg in NaCl 0.9% 100 mL (ORENCIA) 750 mg (set by rule on 01/30/2022 1:04 PM), INTRAVENOUS, at 200 mL/hr, Administer over 30 Minutes, ONCE, 1 dose, On Sat03/05/22 at 1300, Total Volume: 100 mL EXP 03/06/22 1200 Administer with 0.2 micron filter. New Bag/Syringe/Bottle 03/05/2022 1:29 PM EDT 750 mg 200 mL/hr Inactive Administered Medications - up to 3 most recent administrations Medication Order MAR Action Action Date Dose Rate Site abatacept 750 mg in NaCl 0.9% 100 mL (ORENCIA) 750 mg (set by rule on 04/05/2022 8:37 AM), INTRAVENOUS, at 200 mL/hr, Administer over 30 Minutes, ONCE, 1 dose, On [place] 04/05/22 at 1300, Total Volume: 100 mL EXP 03/06/22 1200 Administer with 0.2 micron filter. New Bag/Syringe/Bottle 04/05/2022 1:29 PM EDT 750 mg 200 mL/hr Inactive Administered Medications - up to 3 most recent administrations Medication Order MAR Action Action Date Dose Rate Site abatacept 750 mg in NaCl 0.9% 100 mL (ORENCIA) 750 mg (set by rule on 05/01/2022 11:40 AM), INTRAVENOUS, at 200 mL/hr, Administer over 30 Minutes, ONCE, 1 dose, On Sat05/03/22 at 1130, Total Volume: 100 mL EXP 05/04/22 @ 1200 Administer with 0.2 micron filter. New Bag/Syringe/Bottle 05/03/2022 11:48 AM EDT 750 mg 200 mL/hr Inactive Administered Medications - up to 3 most recent administrations Medication Order MAR Action Action Date Dose Rate Site abatacept 750 mg in NaCl 0.9% 100 mL (ORENCIA) 750 mg (set by rule on 05/29/2022 12:48 PM), INTRAVENOUS, at 200 mL/hr, Administer over 30 Minutes, ONCE, 1 dose, On Sat07/17/22 at 1130, Total Volume: 100 mL EXP 07/18/22 @ 1200 Administer with 0.2 micron filter. New Bag/Syringe/Bottle 07/17/2022 11:44 AM EST 750 mg 200 mL/hr Inactive Administered Medications - up to 3 most recent administrations Medication Order MAR Action Action Date Dose Rate Site abatacept 750 mg in NaCl 0.9% 100 mL (ORENCIA) 750 mg (set by rule on 08/08/2022 1:00 PM), INTRAVENOUS, at 200 mL/hr, Administer over 30 Minutes, ONCE, 1 dose, On Sat08/14/22 at 1130, Total Volume: 100 mL EXP 08/15/22 @1200 Administer with 0.2 micron filter. New Bag/Syringe/Bottle 08/14/2022 11:53 AM EST 750 mg 200 mL/hr Inactive Administered Medications - up to 3 most recent administrations Medication Order MAR Action Action Date Dose Rate Site abatacept 750 mg in NaCl 0.9% 100 mL (ORENCIA) 750 mg (set by rule on 09/03/2022 10:54 AM), INTRAVENOUS, at 200 mL/hr, Administer over 30 Minutes, ONCE, 1 dose, On Sat11/02/22 at 1100, Total Volume: 100 mL EXP 11/02/22 @2100 Administer with 0.2 micron filter. New Bag/Syringe/Bottle 11/02/2022 10:49 AM EDT 750 mg 200 mL/hr Inactive Administered Medications - up to 3 most recent administrations Medication Order MAR Action Action Date Dose Rate Site abatacept 750 mg in NaCl 0.9% 100 mL (ORENCIA) 750 mg (set by rule on 04/11/2023 10:26 AM), INTRAVENOUS, at 200 mL/hr, Administer over 30 Minutes, ONCE, 1 dose, On Sat04/25/23 at 1030, Total Volume: 100 mL 04/26/23 @ 1100 Administer with 0.2 micron filter. New Bag/Syringe/Bottle 04/25/2023 11:00 AM EDT 750 mg 200 mL/hr zoledronic acid 5 mg PREMIX piggyback (RECLAST) 5 mg, INTRAVENOUS, at 400 mL/hr, Administer over 15 Minutes, ONCE, 1 dose, On Sat04/25/23 at 1300, Hazardous Potential Reproductive Risk Drug: Use appropriate PPE. New Bag/Syringe/Bottle 04/25/2023 12:50 PM EDT 5 mg 400 mL/hr Inactive Administered Medications - up to 3 most recent administrations Medication Order MAR Action Action Date Dose Rate Site abatacept 750 mg in NaCl 0.9% 100 mL (ORENCIA) 750 mg (set by rule on 04/11/2023 10:26 AM), INTRAVENOUS, at 200 mL/hr, Administer over 30 Minutes, ONCE, 1 dose, On Sat05/27/23 at 1300, Total Volume: 100 mL; Exp: 05/27/23 @ 2200 Administer with 0.2 micron filter. New Bag/Syringe/Bottle 05/27/2023 1:27 PM EDT 750 mg 200 mL/hr Inactive Administered Medications - up to 3 most recent administrations Medication Order MAR Action Action Date Dose Rate Site abatacept 750 mg in NaCl 0.9% 100 mL (ORENCIA) 750 mg (set by rule on 04/11/2023 10:26 AM), INTRAVENOUS, at 200 mL/hr, Administer over 30 Minutes, ONCE, 1 dose, On Sat07/03/23 at 1130, Total Volume: 100 mL; Exp: 07/03/23 @ 2200 Administer with 0.2 micron filter. New Bag/Syringe/Bottle 07/03/2023 11:31 AM EST 750 mg 200 mL/hr Health Concerns Infection Onset Date Last Indicated Resolved Time COVID-19 Confirmed 04/06/2021 04/06/2021 8:51 PM EDT Infection Onset Date Last Indicated Resolved Time COVID-19 Confirmed 05/16/2022 05/16/2022 Chief Complaint and Reason for Visit Chief Complaint CONGESTED, COUGH RIGHT KNEE Rm 5 xray TIA CONCERN FOR STREP THROAT Reason for Visit Acute bronchitis Contact with or suspected exposure to other viral communicable disease Osteoarthritis of right knee Other instability, right knee Right knee pain Acute pharyngitis, unspecified URI (upper respiratory infection) Chief Complaint CONGESTED, COUGH RIGHT KNEE Rm 5 xray TIA CONCERN FOR STREP THROAT Consult E-ORDER Reason for Visit Acute bronchitis Contact with or suspected exposure to other viral communicable disease Osteoarthritis of right knee Other instability, right knee Right knee pain Acute pharyngitis, unspecified URI (upper respiratory infection) Diarrhea Nausea Chief Complaint CONGESTED, COUGH RIGHT KNEE Rm 5 xray TIA CONCERN FOR STREP THROAT Consult E-ORDER CROHNS TIA TIA (cardiology) Reason for Visit Acute bronchitis Contact with or suspected exposure to other viral communicable disease Osteoarthritis of right knee Other instability, right knee Right knee pain Acute pharyngitis, unspecified URI (upper respiratory infection) Diarrhea Nausea Chief Complaint RIGHT KNEE Rm 5 xray TIA CONCERN FOR STREP THROAT Consult E-ORDER [facility] TIA TIA (cardiology) RIGHT KNEE RM 6 3 MO FU RT KNEE PAIN Reason for Visit Osteoarthritis of ri ght knee Other instability, right knee Right knee pain Acute pharyngitis, unspecified URI (upper respiratory infection) Diarrhea Nausea Internal derangement of right knee Osteoarthritis of right knee Pain in right pelaez Diarrhea Nausea Chief Complaint RIGHT KNEE Rm 5 xray TIA CONCERN FOR STREP THROAT Consult E-ORDER [facility] TIA TIA (cardiology) RIGHT KNEE RM 6 3 MO FU RT KNEE PAIN INT LABS RIGHT KNEE Reason for Visit Osteoarthritis of ri ght knee Other instability, right knee Right knee pain Acute pharyngitis, unspecified URI (upper respiratory infection) Diarrhea Nausea Internal derangement of right knee Osteoarthritis of right knee Pain in right pelaez Diarrhea Nausea Internal derangement of right knee Osteoarthritis of right knee Right knee meniscal tear Chief Complaint Consult E-ORDER [facility] TIA TIA (cardiology) RIGHT KNEE RM 6 3 MO FU RT KNEE PAIN INT LABS RIGHT KNEE RIGHT KNEE TEMPLATING FOR RIGHT TKA right knee Reason for Visit Diarrhea Nausea Internal derangement of right knee Osteoarthritis of right knee Pain in right pelaez Diarrhea Nausea Internal derangement of right knee Osteoarthritis of right knee Right knee meniscal tear Fibromyalgia Rheumatoid arthritis Right knee DJD Chief Complaint CROHNS TIA TIA (cardiology) RIGHT KNEE RM 6 3 MO FU RT KNEE PAIN INT LABS RIGHT KNEE RIGHT KNEE TEMPLATING FOR RIGHT TKA right knee RT TOTAL KNEE W ZANE RT TOTAL KNEE W ZANE RT TOTAL KNEE W ZANE Reason for Visit Internal derangement of right knee Osteoarthritis of right knee Pain in right pelaez Diarrhea Nausea Internal derangement of right knee Osteoarthritis of right knee Right knee meniscal tear Fibromyalgia Rheumatoid arthritis Right knee DJD S/P total knee arthroplasty Chief Complaint RIGHT KNEE 3 MO FU E ORDERS Reason for Visit Orthopedic aftercare Diarrhea Chief Complaint RIGHT KNEE 3 MO FU E ORDERS cap endo Diarrhea, unspecified Reason for Visit Orthopedic aftercare Diarrhea Chief Complaint 3 MO FU E ORDERS cap endo Diarrhea, unspecified INT LABSPEC Reason for Visit Diarrhea Chief Complaint 3 MO FU E ORDERS cap endo Diarrhea, unspecified INT LABSPEC RIGHT KNEE Room 2 HEAD INJURY Reason for Visit Diarrhea Right knee pain Chief Complaint Admit Date 4 M FU August 27, 2024 1 :44pm ABSCESS ON RECTUM September 02, 2024 2 :24pm ABSCESS ON RECTUM September 02, 2024 3 :58pm ABSCESS ON RECTUM September 03, 2024 6 :40am ER FU RECTAL ABSCESS September 15, 2024 1:12pm URINARY COMPLAINTS September 24, 2024 6:45pm CA October 02, 2024 9:46 am Reason for Visit Admit Date Crohn disease August 27, 2024 1 :44pm Difficulty swallowing August 27, 2024 1:44pm IBS (irritable bowel syndrome) July [id number] 1:44pm Pancreatic insufficiency August 27, 025 1:44pm Diarrhea August 27, 2024 1 :44pm Mass of anus September 02, 2024 2 :24pm Perirectal abscess September 02, 2024 2 :24pm 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 September 15, 2024 1:12pm Chief Complaint Admit Date 4 M FU August 27, 2024 1 :44pm ABSCESS ON RECTUM September 02, 2024 2 :24pm ABSCESS ON RECTUM September 02, 2024 3 :58pm ABSCESS ON RECTUM September 03, 2024 6 :40am ER FU RECTAL ABSCESS September 15, 2024 1:12pm URINARY COMPLAINTS September 24, 2024 6:45pm CA October 02, 2024 9:46 am RULE OUT DVT October 19, 2024 1:5 0pm sob October 24, 2024 8:5 8pm Chief Complaint Admit Date 4 M FU August 27, 2024 1 :44pm ABSCESS ON RECTUM September 02, 2024 2 :24pm ABSCESS ON RECTUM September 02, 2024 3 :58pm ABSCESS ON RECTUM September 03, 2024 6 :40am ER FU RECTAL ABSCESS September 15, 2024 1:12pm URINARY COMPLAINTS September 24, 2024 6:45pm CA October 02, 2024 9:46 am RULE OUT DVT October 19, 2024 1:5 0pm sob October 24, 2024 8:5 8pm fall October 30, 2024 12:5 7am Chief Complaint Admit Date ABSCESS ON RECTUM September 02, 2024 2 :24pm ABSCESS ON RECTUM September 02, 2024 3 :58pm ABSCESS ON RECTUM September 03, 2024 6 :40am ER FU RECTAL ABSCESS September 15, 2024 1:12pm URINARY COMPLAINTS September 24, 2024 6:45pm CA October 02, 2024 9:46 am RULE OUT DVT October 19, 2024 1:5 0pm sob October 24, 2024 8:5 8pm fall October 30, 2024 12:5 7am BUTTOCK PAIN December 27, 2024 2:42p m Reason for Visit Admit Date Mass of anus September 02, 2024 2 :24pm Perirectal abscess September 02, 2024 2 :24pm 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 September 15, 2024 1:12pm Chief Complaint Admit Date URINARY COMPLAINTS September 24, 2024 6:45pm CA October 02, 2024 9:46 am RULE OUT DVT October 19, 2024 1:5 0pm sob October 24, 2024 8:5 8pm fall October 30, 2024 12:5 7am BUTTOCK PAIN December 27, 2024 2:42p m FU January 14, 2025 8:19 am Reason for Visit Admit Date Crohn disease January 14, 2025 8:19 am Irritable bowel syndrome [facility] 20[facility] 8:19am Chief Complaint Admit Date RULE OUT DVT October 19, 2024 1:5 0pm sob October 24, 2024 8:5 8pm fall October 30, 2024 12:5 7am BUTTOCK PAIN December 27, 2024 2:42p m FU January 14, 2025 8:19 am 3 WEEK FU February 02, 2025 10:53 am Chief Complaint Admit Date RULE OUT DVT October 19, 2024 1:5 0pm sob October 24, 2024 8:5 8pm fall October 30, 2024 12:5 7am BUTTOCK PAIN December 27, 2024 2:42p m FU January 14, 2025 8:19 am 3 WEEK FU February 02, 2025 10:53 am UPDATE H&P, Sigmoidoscopy February 09 9:32am Reason for Visit Admit Date Crohn disease January 14, 2025 8:19 am Irritable bowel syndrome with diarrhea [facility] 2024 8:19am Diarrhea February 02, 2025 10:53 am 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 February 09, 2025 9:32am Reason for Referral Specialty Diagnoses / Procedures Referred By Jordy nguyen Referred To Contact Hematology Diagnoses Iron deficiency anemia, unspecified iron deficiency anemia type Procedures CONSULT TO HEMATOLOGY OFFICE/OUTPATIENT [facility] 60 MINUTES Sarah Pearson PA-C [id number] [place] [address] Referral ID Status Reason Start Date Expiration Date Visits Requested Visits Authorized [id number] Authorized PCP Requested Referral 05/29/2024 08/27/2024 1 1 Additional Source Comments INFORMATION SOURCE (unrecogn ized section and content) DATE CREATED AUTHOR 10/05/2019 [facility] DATE CREATED AUTHOR AUTHOR'S ORGANIZ ATION 05/08/2021 [facility] DATE CREATED AUTHOR AUTHOR'S ORGANIZ ATION 04/05/2022 [facility] ([place]) DATE CREATED AUTHOR AUTHOR'S ORGANIZ ATION 06/30/2024 [facility] DATE CREATED AUTHOR AUTHOR'S ORGANIZ ATION 11/04/2024 [facility] DATE CREATED AUTHOR AUTHOR'S ORGANIZ ATION 12/09/2024 [facility] DATE CREATED AUTHOR AUTHOR'S ORGANIZ ATION 02/19/2025 [facility] DATE CREATED AUTHOR AUTHOR'S ORGANIZ ATION 02/26/2025 [facility] Source Comments (unrecognize d section and content) In the event this informatio n is protected by the Federal Confidentiality of Alcohol and Drug Abuse Patient Records regulations: The Federal rules restrict any use of the information to criminally investigate or prosecute any alcohol or drug abuse patient.[facility] the event this information is protected by the Federal Confidentiality of Alcohol and Drug Abuse Patient Records regulations: The Federal rules restrict any use of the information to criminally investigate or prosecute any alcohol or drug abuse patient.[facility] the event this information is protected by the Federal Confidentiality of Alcohol and Drug Abuse Patient Records regulations: The Federal rules restrict any use of the information to criminally investigate or prosecute any alcohol or drug abuse patient.[facility] the event this information is protected by the Federal Confidentiality of Alcohol and Drug Abuse Patient Records regulations: The Federal rules restrict any use of the information to criminally investigate or prosecute any alcohol or drug abuse patient.[facility] HospitalIn the event this information is protected by the Federal Confidentiality of Alcohol and Drug Abuse Patient Records regulations: The Federal rules restrict any use of the information to criminally investigate or prosecute any alcohol or drug abuse patient.[facility] HospitalIn the event this information is protected by the Federal Confidentiality of Alcohol and Drug Abuse Patient Records regulations: The Federal rules restrict any use of the information to criminally investigate or prosecute any alcohol or drug abuse patient.[facility] HospitalIn the event this information is protected by the Federal Confidentiality of Alcohol and Drug Abuse Patient Records regulations: The Federal rules restrict any use of the information to criminally investigate or prosecute any alcohol or drug abuse patient.[facility] HospitalIn the event this information is protected by the Federal Confidentiality of Alcohol and Drug Abuse Patient Records regulations: The Federal rules restrict any use of the information to criminally investigate or prosecute any alcohol or drug abuse patient.[facility] HospitalIn the event this information is protected by the Federal Confidentiality of Alcohol and Drug Abuse Patient Records regulations: The Federal rules restrict any use of the information to criminally investigate or prosecute any alcohol or drug abuse patient.[facility] HospitalIn the event this information is protected by the Federal Confidentiality of Alcohol and Drug Abuse Patient Records regulations: The Federal rules restrict any use of the information to criminally investigate or prosecute any alcohol or drug abuse patient.[facility] HospitalIn the event this information is protected by the Federal Confidentiality of Alcohol and Drug Abuse Patient Records regulations: The Federal rules restrict any use of the information to criminally investigate or prosecute any alcohol or drug abuse patient.[facility] HospitalIn the event this information is protected by the Federal Confidentiality of Alcohol and Drug Abuse Patient Records regulations: The Federal rules restrict any use of the information to criminally investigate or prosecute any alcohol or drug abuse patient.[facility] HospitalIn the event this information is protected by the Federal Confidentiality of Alcohol and Drug Abuse Patient Records regulations: The Federal rules restrict any use of the information to criminally investigate or prosecute any alcohol or drug abuse patient.[facility] HospitalIn the event this information is protected by the Federal Confidentiality of Alcohol and Drug Abuse Patient Records regulations: The Federal rules restrict any use of the information to criminally investigate or prosecute any alcohol or drug abuse patient.[facility] HospitalIn the event this information is protected by the Federal Confidentiality of Alcohol and Drug Abuse Patient Records regulations: The Federal rules restrict any use of the information to criminally investigate or prosecute any alcohol or drug abuse patient.[facility] HospitalIn the event this information is protected by the Federal Confidentiality of Alcohol and Drug Abuse Patient Records regulations: The Federal rules restrict any use of the information to criminally investigate or prosecute any alcohol or drug abuse patient.[facility] HospitalIn the event this information is protected by the Federal Confidentiality of Alcohol and Drug Abuse Patient Records regulations: The Federal rules restrict any use of the information to criminally investigate or prosecute any alcohol or drug abuse patient.[facility] HospitalIn the event this information is protected by the Federal Confidentiality of Alcohol and Drug Abuse Patient Records regulations: The Federal rules restrict any use of the information to criminally investigate or prosecute any alcohol or drug abuse patient.[facility] HospitalIn the event this information is protected by the Federal Confidentiality of Alcohol and Drug Abuse Patient Records regulations: The Federal rules restrict any use of the information to criminally investigate or prosecute any alcohol or drug abuse patient.[facility] HospitalIn the event this information is protected by the Federal Confidentiality of Alcohol and Drug Abuse Patient Records regulations: The Federal rules restrict any use of the information to criminally investigate or prosecute any alcohol or drug abuse patient.[facility] HospitalIn the event this information is protected by the Federal Confidentiality of Alcohol and Drug Abuse Patient Records regulations: The Federal rules restrict any use of the information to criminally investigate or prosecute any alcohol or drug abuse patient.[facility] HospitalIn the event this information is protected by the Federal Confidentiality of Alcohol and Drug Abuse Patient Records regulations: The Federal rules restrict any use of the information to criminally investigate or prosecute any alcohol or drug abuse patient.[facility] HospitalIn the event this information is protected by the Federal Confidentiality of Alcohol and Drug Abuse Patient Records regulations: The Federal rules restrict any use of the information to criminally investigate or prosecute any alcohol or drug abuse patient.[facility]In the event this information is protected by the Federal Confidentiality of Alcohol and Drug Abuse Patient Records regulations: The Federal rules restrict any use of the information to criminally investigate or prosecute any alcohol or drug abuse patient.[facility]In the event this information is protected by the Federal Confidentiality of Alcohol and Drug Abuse Patient Records regulations: The Federal rules restrict any use of the information to criminally investigate or prosecute any alcohol or drug abuse patient.[facility] HospitalIn the event this information is protected by the Federal Confidentiality of Alcohol and Drug Abuse Patient Records regulations: The Federal rules restrict any use of the information to criminally investigate or prosecute any alcohol or drug abuse patient.[facility] HospitalIn the event this information is protected by the Federal Confidentiality of Alcohol and Drug Abuse Patient Records regulations: The Federal rules restrict any use of the information to criminally investigate or prosecute any alcohol or drug abuse patient.[facility] HospitalIn the event this information is protected by the Federal Confidentiality of Alcohol and Drug Abuse Patient Records regulations: The Federal rules restrict any use of the information to criminally investigate or prosecute any alcohol or drug abuse patient.[facility] HospitalIn the event this information is protected by the Federal Confidentiality of Alcohol and Drug Abuse Patient Records regulations: The Federal rules restrict any use of the information to criminally investigate or prosecute any alcohol or drug abuse patient.[facility] HospitalIn the event this information is protected by the Federal Confidentiality of Alcohol and Drug Abuse Patient Records regulations: The Federal rules restrict any use of the information to criminally investigate or prosecute any alcohol or drug abuse patient.[facility] HospitalIn the event this information is protected by the Federal Confidentiality of Alcohol and Drug Abuse Patient Records regulations: The Federal rules restrict any use of the information to criminally investigate or prosecute any alcohol or drug abuse patient.[facility] HospitalIn the event this information is protected by the Federal Confidentiality of Alcohol and Drug Abuse Patient Records regulations: The Federal rules restrict any use of the information to criminally investigate or prosecute any alcohol or drug abuse patient.[facility] HospitalIn the event this information is protected by the Federal Confidentiality of Alcohol and Drug Abuse Patient Records regulations: The Federal rules restrict any use of the information to criminally investigate or prosecute any alcohol or drug abuse patient.[facility] HospitalIn the event this information is protected by the Federal Confidentiality of Alcohol and Drug Abuse Patient Records regulations: The Federal rules restrict any use of the information to criminally investigate or prosecute any alcohol or drug abuse patient.[facility] HospitalIn the event this information is protected by the Federal Confidentiality of Alcohol and Drug Abuse Patient Records regulations: The Federal rules restrict any use of the information to criminally investigate or prosecute any alcohol or drug abuse patient.[facility] HospitalIn the event this information is protected by the Federal Confidentiality of Alcohol and Drug Abuse Patient Records regulations: The Federal rules restrict any use of the information to criminally investigate or prosecute any alcohol or drug abuse patient.[facility] HospitalIn the event this information is protected by the Federal Confidentiality of Alcohol and Drug Abuse Patient Records regulations: The Federal rules restrict any use of the information to criminally investigate or prosecute any alcohol or drug abuse patient.[facility] HospitalIn the event this information is protected by the Federal Confidentiality of Alcohol and Drug Abuse Patient Records regulations: The Federal rules restrict any use of the information to criminally investigate or prosecute any alcohol or drug abuse patient.[facility] HospitalIn the event this information is protected by the Federal Confidentiality of Alcohol and Drug Abuse Patient Records regulations: The Federal rules restrict any use of the information to criminally investigate or prosecute any alcohol or drug abuse patient.[facility] HospitalIn the event this information is protected by the Federal Confidentiality of Alcohol and Drug Abuse Patient Records regulations: The Federal rules restrict any use of the information to criminally investigate or prosecute any alcohol or drug abuse patient.[facility] HospitalIn the event this information is protected by the Federal Confidentiality of Alcohol and Drug Abuse Patient Records regulations: The Federal rules restrict any use of the information to criminally investigate or prosecute any alcohol or drug abuse patient.[facility] HospitalIn the event this information is protected by the Federal Confidentiality of Alcohol and Drug Abuse Patient Records regulations: The Federal rules restrict any use of the information to criminally investigate or prosecute any alcohol or drug abuse patient.[facility] HospitalIn the event this information is protected by the Federal Confidentiality of Alcohol and Drug Abuse Patient Records regulations: The Federal rules restrict any use of the information to criminally investigate or prosecute any alcohol or drug abuse patient.[facility] HospitalIn the event this information is protected by the Federal Confidentiality of Alcohol and Drug Abuse Patient Records regulations: The Federal rules restrict any use of the information to criminally investigate or prosecute any alcohol or drug abuse patient.[facility] HospitalIn the event this information is protected by the Federal Confidentiality of Alcohol and Drug Abuse Patient Records regulations: The Federal rules restrict any use of the information to criminally investigate or prosecute any alcohol or drug abuse patient.[facility] HospitalIn the event this information is protected by the Federal Confidentiality of Alcohol and Drug Abuse Patient Records regulations: The Federal rules restrict any use of the information to criminally investigate or prosecute any alcohol or drug abuse patient.[facility] HospitalIn the event this information is protected by the Federal Confidentiality of Alcohol and Drug Abuse Patient Records regulations: The Federal rules restrict any use of the information to criminally investigate or prosecute any alcohol or drug abuse patient.[facility] HospitalIn the event this information is protected by the Federal Confidentiality of Alcohol and Drug Abuse Patient Records regulations: The Federal rules restrict any use of the information to criminally investigate or prosecute any alcohol or drug abuse patient.[facility] HospitalIn the event this information is protected by the Federal Confidentiality of Alcohol and Drug Abuse Patient Records regulations: The Federal rules restrict any use of the information to criminally investigate or prosecute any alcohol or drug abuse patient.[facility] HospitalIn the event this information is protected by the Federal Confidentiality of Alcohol and Drug Abuse Patient Records regulations: The Federal rules restrict any use of the information to criminally investigate or prosecute any alcohol or drug abuse patient.[facility] HospitalIn the event this information is protected by the Federal Confidentiality of Alcohol and Drug Abuse Patient Records regulations: The Federal rules restrict any use of the information to criminally investigate or prosecute any alcohol or drug abuse patient.[facility] HospitalIn the event this information is protected by the Federal Confidentiality of Alcohol and Drug Abuse Patient Records regulations: The Federal rules restrict any use of the information to criminally investigate or prosecute any alcohol or drug abuse patient.[facility] HospitalIn the event this information is protected by the Federal Confidentiality of Alcohol and Drug Abuse Patient Records regulations: The Federal rules restrict any use of the information to criminally investigate or prosecute any alcohol or drug abuse patient.[facility] HospitalIn the event this information is protected by the Federal Confidentiality of Alcohol and Drug Abuse Patient Records regulations: The Federal rules restrict any use of the information to criminally investigate or prosecute any alcohol or drug abuse patient.[facility] HospitalIn the event this information is protected by the Federal Confidentiality of Alcohol and Drug Abuse Patient Records regulations: The Federal rules restrict any use of the information to criminally investigate or prosecute any alcohol or drug abuse patient.[facility] HospitalIn the event this information is protected by the Federal Confidentiality of Alcohol and Drug Abuse Patient Records regulations: The Federal rules restrict any use of the information to criminally investigate or prosecute any alcohol or drug abuse patient.[facility] HospitalIn the event this information is protected by the Federal Confidentiality of Alcohol and Drug Abuse Patient Records regulations: The Federal rules restrict any use of the information to criminally investigate or prosecute any alcohol or drug abuse patient.[facility] HospitalIn the event this information is protected by the Federal Confidentiality of Alcohol and Drug Abuse Patient Records regulations: The Federal rules restrict any use of the information to criminally investigate or prosecute any alcohol or drug abuse patient.[facility] HospitalIn the event this information is protected by the Federal Confidentiality of Alcohol and Drug Abuse Patient Records regulations: The Federal rules restrict any use of the information to criminally investigate or prosecute any alcohol or drug abuse patient.[facility] HospitalIn the event this information is protected by the Federal Confidentiality of Alcohol and Drug Abuse Patient Records regulations: The Federal rules restrict any use of the information to criminally investigate or prosecute any alcohol or drug abuse patient.[facility] HospitalIn the event this information is protected by the Federal Confidentiality of Alcohol and Drug Abuse Patient Records regulations: The Federal rules restrict any use of the information to criminally investigate or prosecute any alcohol or drug abuse patient.[facility] HospitalIn the event this information is protected by the Federal Confidentiality of Alcohol and Drug Abuse Patient Records regulations: The Federal rules restrict any use of the information to criminally investigate or prosecute any alcohol or drug abuse patient.[facility] HospitalIn the event this information is protected by the Federal Confidentiality of Alcohol and Drug Abuse Patient Records regulations: The Federal rules restrict any use of the information to criminally investigate or prosecute any alcohol or drug abuse patient.[facility] HospitalIn the event this information is protected by the Federal Confidentiality of Alcohol and Drug Abuse Patient Records regulations: The Federal rules restrict any use of the information to criminally investigate or prosecute any alcohol or drug abuse patient.[facility] HospitalIn the event this information is protected by the Federal Confidentiality of Alcohol and Drug Abuse Patient Records regulations: The Federal rules restrict any use of the information to criminally investigate or prosecute any alcohol or drug abuse patient.[facility] HospitalIn the event this information is protected by the Federal Confidentiality of Alcohol and Drug Abuse Patient Records regulations: The Federal rules restrict any use of the information to criminally investigate or prosecute any alcohol or drug abuse patient.[facility] HospitalIn the event this information is protected by the Federal Confidentiality of Alcohol and Drug Abuse Patient Records regulations: The Federal rules restrict any use of the information to criminally investigate or prosecute any alcohol or drug abuse patient.[facility] HospitalIn the event this information is protected by the Federal Confidentiality of Alcohol and Drug Abuse Patient Records regulations: The Federal rules restrict any use of the information to criminally investigate or prosecute any alcohol or drug abuse patient.[facility] HospitalIn the event this information is protected by the Federal Confidentiality of Alcohol and Drug Abuse Patient Records regulations: The Federal rules restrict any use of the information to criminally investigate or prosecute any alcohol or drug abuse patient.[facility] HospitalIn the event this information is protected by the Federal Confidentiality of Alcohol and Drug Abuse Patient Records regulations: The Federal rules restrict any use of the information to criminally investigate or prosecute any alcohol or drug abuse patient.[facility] HospitalIn the event this information is protected by the Federal Confidentiality of Alcohol and Drug Abuse Patient Records regulations: The Federal rules restrict any use of the information to criminally investigate or prosecute any alcohol or drug abuse patient.[facility] HospitalIn the event this information is protected by the Federal Confidentiality of Alcohol and Drug Abuse Patient Records regulations: The Federal rules restrict any use of the information to criminally investigate or prosecute any alcohol or drug abuse patient.[facility] HospitalIn the event this information is protected by the Federal Confidentiality of Alcohol and Drug Abuse Patient Records regulations: The Federal rules restrict any use of the information to criminally investigate or prosecute any alcohol or drug abuse patient.[facility] HospitalIn the event this information is protected by the Federal Confidentiality of Alcohol and Drug Abuse Patient Records regulations: The Federal rules restrict any use of the information to criminally investigate or prosecute any alcohol or drug abuse patient.[facility] HospitalIn the event this information is protected by the Federal Confidentiality of Alcohol and Drug Abuse Patient Records regulations: The Federal rules restrict any use of the information to criminally investigate or prosecute any alcohol or drug abuse patient.[facility] HospitalIn the event this information is protected by the Federal Confidentiality of Alcohol and Drug Abuse Patient Records regulations: The Federal rules restrict any use of the information to criminally investigate or prosecute any alcohol or drug abuse patient.[facility] HospitalIn the event this information is protected by the Federal Confidentiality of Alcohol and Drug Abuse Patient Records regulations: The Federal rules restrict any use of the information to criminally investigate or prosecute any alcohol or drug abuse patient.[facility] HospitalIn the event this information is protected by the Federal Confidentiality of Alcohol and Drug Abuse Patient Records regulations: The Federal rules restrict any use of the information to criminally investigate or prosecute any alcohol or drug abuse patient.[facility] HospitalIn the event this information is protected by the Federal Confidentiality of Alcohol and Drug Abuse Patient Records regulations: The Federal rules restrict any use of the information to criminally investigate or prosecute any alcohol or drug abuse patient.[facility] HospitalIn the event this information is protected by the Federal Confidentiality of Alcohol and Drug Abuse Patient Records regulations: The Federal rules restrict any use of the information to criminally investigate or prosecute any alcohol or drug abuse patient.[facility] HospitalIn the event this information is protected by the Federal Confidentiality of Alcohol and Drug Abuse Patient Records regulations: The Federal rules restrict any use of the information to criminally investigate or prosecute any alcohol or drug abuse patient.[facility] HospitalIn the event this information is protected by the Federal Confidentiality of Alcohol and Drug Abuse Patient Records regulations: The Federal rules restrict any use of the information to criminally investigate or prosecute any alcohol or drug abuse patient.[facility] HospitalIn the event this information is protected by the Federal Confidentiality of Alcohol and Drug Abuse Patient Records regulations: The Federal rules restrict any use of the information to criminally investigate or prosecute any alcohol or drug abuse patient.[facility] HospitalIn the event this information is protected by the Federal Confidentiality of Alcohol and Drug Abuse Patient Records regulations: The Federal rules restrict any use of the information to criminally investigate or prosecute any alcohol or drug abuse patient.[facility] HospitalIn the event this information is protected by the Federal Confidentiality of Alcohol and Drug Abuse Patient Records regulations: The Federal rules restrict any use of the information to criminally investigate or prosecute any alcohol or drug abuse patient.[facility] HospitalIn the event this information is protected by the Federal Confidentiality of Alcohol and Drug Abuse Patient Records regulations: The Federal rules restrict any use of the information to criminally investigate or prosecute any alcohol or drug abuse patient.[facility] HospitalIn the event this information is protected by the Federal Confidentiality of Alcohol and Drug Abuse Patient Records regulations: The Federal rules restrict any use of the information to criminally investigate or prosecute any alcohol or drug abuse patient.[facility] HospitalIn the event this information is protected by the Federal Confidentiality of Alcohol and Drug Abuse Patient Records regulations: The Federal rules restrict any use of the information to criminally investigate or prosecute any alcohol or drug abuse patient.[facility] HospitalIn the event this information is protected by the Federal Confidentiality of Alcohol and Drug Abuse Patient Records regulations: The Federal rules restrict any use of the information to criminally investigate or prosecute any alcohol or drug abuse patient.[facility] HospitalIn the event this information is protected by the Federal Confidentiality of Alcohol and Drug Abuse Patient Records regulations: The Federal rules restrict any use of the information to criminally investigate or prosecute any alcohol or drug abuse patient.[facility] HospitalIn the event this information is protected by the Federal Confidentiality of Alcohol and Drug Abuse Patient Records regulations: The Federal rules restrict any use of the information to criminally investigate or prosecute any alcohol or drug abuse patient.[facility] HospitalIn the event this information is protected by the Federal Confidentiality of Alcohol and Drug Abuse Patient Records regulations: The Federal rules restrict any use of the information to criminally investigate or prosecute any alcohol or drug abuse patient.[facility] HospitalIn the event this information is protected by the Federal Confidentiality of Alcohol and Drug Abuse Patient Records regulations: The Federal rules restrict any use of the information to criminally investigate or prosecute any alcohol or drug abuse patient.[facility] HospitalIn the event this information is protected by the Federal Confidentiality of Alcohol and Drug Abuse Patient Records regulations: The Federal rules restrict any use of the information to criminally investigate or prosecute any alcohol or drug abuse patient.[facility] HospitalIn the event this information is protected by the Federal Confidentiality of Alcohol and Drug Abuse Patient Records regulations: The Federal rules restrict any use of the information to criminally investigate or prosecute any alcohol or drug abuse patient.[facility] HospitalIn the event this information is protected by the Federal Confidentiality of Alcohol and Drug Abuse Patient Records regulations: The Federal rules restrict any use of the information to criminally investigate or prosecute any alcohol or drug abuse patient.[facility] HospitalIn the event this information is protected by the Federal Confidentiality of Alcohol and Drug Abuse Patient Records regulations: The Federal rules restrict any use of the information to criminally investigate or prosecute any alcohol or drug abuse patient.[facility] HospitalIn the event this information is protected by the Federal Confidentiality of Alcohol and Drug Abuse Patient Records regulations: The Federal rules restrict any use of the information to criminally investigate or prosecute any alcohol or drug abuse patient.[facility] HospitalIn the event this information is protected by the Federal Confidentiality of Alcohol and Drug Abuse Patient Records regulations: The Federal rules restrict any use of the information to criminally investigate or prosecute any alcohol or drug abuse patient.[facility] HospitalIn the event this information is protected by the Federal Confidentiality of Alcohol and Drug Abuse Patient Records regulations: The Federal rules restrict any use of the information to criminally investigate or prosecute any alcohol or drug abuse patient.[facility] HospitalIn the event this information is protected by the Federal Confidentiality of Alcohol and Drug Abuse Patient Records regulations: The Federal rules restrict any use of the information to criminally investigate or prosecute any alcohol or drug abuse patient.[facility] HospitalIn the event this information is protected by the Federal Confidentiality of Alcohol and Drug Abuse Patient Records regulations: The Federal rules restrict any use of the information to criminally investigate or prosecute any alcohol or drug abuse patient.[facility] HospitalIn the event this information is protected by the Federal Confidentiality of Alcohol and Drug Abuse Patient Records regulations: The Federal rules restrict any use of the information to criminally investigate or prosecute any alcohol or drug abuse patient.[facility] HospitalIn the event this information is protected by the Federal Confidentiality of Alcohol and Drug Abuse Patient Records regulations: The Federal rules restrict any use of the information to criminally investigate or prosecute any alcohol or drug abuse patient.[facility] HospitalIn the event this information is protected by the Federal Confidentiality of Alcohol and Drug Abuse Patient Records regulations: The Federal rules restrict any use of the information to criminally investigate or prosecute any alcohol or drug abuse patient.[facility] HospitalIn the event this information is protected by the Federal Confidentiality of Alcohol and Drug Abuse Patient Records regulations: The Federal rules restrict any use of the information to criminally investigate or prosecute any alcohol or drug abuse patient.[facility]In the event this information is protected by the Federal Confidentiality of Alcohol and Drug Abuse Patient Records regulations: The Federal rules restrict any use of the information to criminally investigate or prosecute any alcohol or drug abuse patient.[facility] HospitalIn the event this information is protected by the Federal Confidentiality of Alcohol and Drug Abuse Patient Records regulations: The Federal rules restrict any use of the information to criminally investigate or prosecute any alcohol or drug abuse patient.[facility] HospitalIn the event this information is protected by the Federal Confidentiality of Alcohol and Drug Abuse Patient Records regulations: The Federal rules restrict any use of the information to criminally investigate or prosecute any alcohol or drug abuse patient.[facility] HospitalIn the event this information is protected by the Federal Confidentiality of Alcohol and Drug Abuse Patient Records regulations: The Federal rules restrict any use of the information to criminally investigate or prosecute any alcohol or drug abuse patient.[facility] HospitalIn the event this information is protected by the Federal Confidentiality of Alcohol and Drug Abuse Patient Records regulations: The Federal rules restrict any use of the information to criminally investigate or prosecute any alcohol or drug abuse patient.[facility] HospitalIn the event this information is protected by the Federal Confidentiality of Alcohol and Drug Abuse Patient Records regulations: The Federal rules restrict any use of the information to criminally investigate or prosecute any alcohol or drug abuse patient.[facility] HospitalIn the event this information is protected by the Federal Confidentiality of Alcohol and Drug Abuse Patient Records regulations: The Federal rules restrict any use of the information to criminally investigate or prosecute any alcohol or drug abuse patient.[facility] HospitalIn the event this information is protected by the Federal Confidentiality of Alcohol and Drug Abuse Patient Records regulations: The Federal rules restrict any use of the information to criminally investigate or prosecute any alcohol or drug abuse patient.[facility] HospitalIn the event this information is protected by the Federal Confidentiality of Alcohol and Drug Abuse Patient Records regulations: The Federal rules restrict any use of the information to criminally investigate or prosecute any alcohol or drug abuse patient.[facility] HospitalIn the event this information is protected by the Federal Confidentiality of Alcohol and Drug Abuse Patient Records regulations: The Federal rules restrict any use of the information to criminally investigate or prosecute any alcohol or drug abuse patient.[facility] HospitalIn the event this information is protected by the Federal Confidentiality of Alcohol and Drug Abuse Patient Records regulations: The Federal rules restrict any use of the information to criminally investigate or prosecute any alcohol or drug abuse patient.[facility] HospitalIn the event this information is protected by the Federal Confidentiality of Alcohol and Drug Abuse Patient Records regulations: The Federal rules restrict any use of the information to criminally investigate or prosecute any alcohol or drug abuse patient.[facility] HospitalIn the event this information is protected by the Federal Confidentiality of Alcohol and Drug Abuse Patient Records regulations: The Federal rules restrict any use of the information to criminally investigate or prosecute any alcohol or drug abuse patient.[facility] HospitalIn the event this information is protected by the Federal Confidentiality of Alcohol and Drug Abuse Patient Records regulations: The Federal rules restrict any use of the information to criminally investigate or prosecute any alcohol or drug abuse patient.[facility] HospitalIn the event this information is protected by the Federal Confidentiality of Alcohol and Drug Abuse Patient Records regulations: The Federal rules restrict any use of the information to criminally investigate or prosecute any alcohol or drug abuse patient.[facility] HospitalIn the event this information is protected by the Federal Confidentiality of Alcohol and Drug Abuse Patient Records regulations: The Federal rules restrict any use of the information to criminally investigate or prosecute any alcohol or drug abuse patient.[facility] HospitalIn the event this information is protected by the Federal Confidentiality of Alcohol and Drug Abuse Patient Records regulations: The Federal rules restrict any use of the information to criminally investigate or prosecute any alcohol or drug abuse patient.[facility] HospitalIn the event this information is protected by the Federal Confidentiality of Alcohol and Drug Abuse Patient Records regulations: The Federal rules restrict any use of the information to criminally investigate or prosecute any alcohol or drug abuse patient.[facility] HospitalIn the event this information is protected by the Federal Confidentiality of Alcohol and Drug Abuse Patient Records regulations: The Federal rules restrict any use of the information to criminally investigate or prosecute any alcohol or drug abuse patient.[facility] HospitalIn the event this information is protected by the Federal Confidentiality of Alcohol and Drug Abuse Patient Records regulations: The Federal rules restrict any use of the information to criminally investigate or prosecute any alcohol or drug abuse patient.[facility] HospitalIn the event this information is protected by the Federal Confidentiality of Alcohol and Drug Abuse Patient Records regulations: The Federal rules restrict any use of the information to criminally investigate or prosecute any alcohol or drug abuse patient.[facility] HospitalIn the event this information is protected by the Federal Confidentiality of Alcohol and Drug Abuse Patient Records regulations: The Federal rules restrict any use of the information to criminally investigate or prosecute any alcohol or drug abuse patient.[facility] HospitalIn the event this information is protected by the Federal Confidentiality of Alcohol and Drug Abuse Patient Records regulations: The Federal rules restrict any use of the information to criminally investigate or prosecute any alcohol or drug abuse patient.[facility] HospitalIn the event this information is protected by the Federal Confidentiality of Alcohol and Drug Abuse Patient Records regulations: The Federal rules restrict any use of the information to criminally investigate or prosecute any alcohol or drug abuse patient.[facility] HospitalIn the event this information is protected by the Federal Confidentiality of Alcohol and Drug Abuse Patient Records regulations: The Federal rules restrict any use of the information to criminally investigate or prosecute any alcohol or drug abuse patient.[facility] HospitalIn the event this information is protected by the Federal Confidentiality of Alcohol and Drug Abuse Patient Records regulations: The Federal rules restrict any use of the information to criminally investigate or prosecute any alcohol or drug abuse patient.[facility] HospitalIn the event this information is protected by the Federal Confidentiality of Alcohol and Drug Abuse Patient Records regulations: The Federal rules restrict any use of the information to criminally investigate or prosecute any alcohol or drug abuse patient.[facility] HospitalIn the event this information is protected by the Federal Confidentiality of Alcohol and Drug Abuse Patient Records regulations: The Federal rules restrict any use of the information to criminally investigate or prosecute any alcohol or drug abuse patient.[facility] HospitalIn the event this information is protected by the Federal Confidentiality of Alcohol and Drug Abuse Patient Records regulations: The Federal rules restrict any use of the information to criminally investigate or prosecute any alcohol or drug abuse patient.[facility] HospitalIn the event this information is protected by the Federal Confidentiality of Alcohol and Drug Abuse Patient Records regulations: The Federal rules restrict any use of the information to criminally investigate or prosecute any alcohol or drug abuse patient.[facility] HospitalIn the event this information is protected by the Federal Confidentiality of Alcohol and Drug Abuse Patient Records regulations: The Federal rules restrict any use of the information to criminally investigate or prosecute any alcohol or drug abuse patient.[facility] HospitalIn the event this information is protected by the Federal Confidentiality of Alcohol and Drug Abuse Patient Records regulations: The Federal rules restrict any use of the information to criminally investigate or prosecute any alcohol or drug abuse patient.[facility] HospitalIn the event this information is protected by the Federal Confidentiality of Alcohol and Drug Abuse Patient Records regulations: The Federal rules restrict any use of the information to criminally investigate or prosecute any alcohol or drug abuse patient.[facility] HospitalIn the event this information is protected by the Federal Confidentiality of Alcohol and Drug Abuse Patient Records regulations: The Federal rules restrict any use of the information to criminally investigate or prosecute any alcohol or drug abuse patient.[facility] HospitalIn the event this information is protected by the Federal Confidentiality of Alcohol and Drug Abuse Patient Records regulations: The Federal rules restrict any use of the information to criminally investigate or prosecute any alcohol or drug abuse patient.[facility] HospitalIn the event this information is protected by the Federal Confidentiality of Alcohol and Drug Abuse Patient Records regulations: The Federal rules restrict any use of the information to criminally investigate or prosecute any alcohol or drug abuse patient.[facility] HospitalIn the event this information is protected by the Federal Confidentiality of Alcohol and Drug Abuse Patient Records regulations: The Federal rules restrict any use of the information to criminally investigate or prosecute any alcohol or drug abuse patient.[facility] HospitalIn the event this information is protected by the Federal Confidentiality of Alcohol and Drug Abuse Patient Records regulations: The Federal rules restrict any use of the information to criminally investigate or prosecute any alcohol or drug abuse patient.[facility] HospitalIn the event this information is protected by the Federal Confidentiality of Alcohol and Drug Abuse Patient Records regulations: The Federal rules restrict any use of the information to criminally investigate or prosecute any alcohol or drug abuse patient.[facility] HospitalIn the event this information is protected by the Federal Confidentiality of Alcohol and Drug Abuse Patient Records regulations: The Federal rules restrict any use of the information to criminally investigate or prosecute any alcohol or drug abuse patient.[facility] HospitalIn the event this information is protected by the Federal Confidentiality of Alcohol and Drug Abuse Patient Records regulations: The Federal rules restrict any use of the information to criminally investigate or prosecute any alcohol or drug abuse patient.[facility] HospitalIn the event this information is protected by the Federal Confidentiality of Alcohol and Drug Abuse Patient Records regulations: The Federal rules restrict any use of the information to criminally investigate or prosecute any alcohol or drug abuse patient.[facility] HospitalIn the event this information is protected by the Federal Confidentiality of Alcohol and Drug Abuse Patient Records regulations: The Federal rules restrict any use of the information to criminally investigate or prosecute any alcohol or drug abuse patient.[facility] HospitalIn the event this information is protected by the Federal Confidentiality of Alcohol and Drug Abuse Patient Records regulations: The Federal rules restrict any use of the information to criminally investigate or prosecute any alcohol or drug abuse patient.[facility] HospitalIn the event this information is protected by the Federal Confidentiality of Alcohol and Drug Abuse Patient Records regulations: The Federal rules restrict any use of the information to criminally investigate or prosecute any alcohol or drug abuse patient.[facility] HospitalIn the event this information is protected by the Federal Confidentiality of Alcohol and Drug Abuse Patient Records regulations: The Federal rules restrict any use of the information to criminally investigate or prosecute any alcohol or drug abuse patient.[facility] HospitalIn the event this information is protected by the Federal Confidentiality of Alcohol and Drug Abuse Patient Records regulations: The Federal rules restrict any use of the information to criminally investigate or prosecute any alcohol or drug abuse patient.[facility] HospitalIn the event this information is protected by the Federal Confidentiality of Alcohol and Drug Abuse Patient Records regulations: The Federal rules restrict any use of the information to criminally investigate or prosecute any alcohol or drug abuse patient.[facility] HospitalIn the event this information is protected by the Federal Confidentiality of Alcohol and Drug Abuse Patient Records regulations: The Federal rules restrict any use of the information to criminally investigate or prosecute any alcohol or drug abuse patient.[facility] HospitalIn the event this information is protected by the Federal Confidentiality of Alcohol and Drug Abuse Patient Records regulations: The Federal rules restrict any use of the information to criminally investigate or prosecute any alcohol or drug abuse patient.[facility] HospitalIn the event this information is protected by the Federal Confidentiality of Alcohol and Drug Abuse Patient Records regulations: The Federal rules restrict any use of the information to criminally investigate or prosecute any alcohol or drug abuse patient.[facility] HospitalIn the event this information is protected by the Federal Confidentiality of Alcohol and Drug Abuse Patient Records regulations: The Federal rules restrict any use of the information to criminally investigate or prosecute any alcohol or drug abuse patient.[facility] HospitalIn the event this information is protected by the Federal Confidentiality of Alcohol and Drug Abuse Patient Records regulations: The Federal rules restrict any use of the information to criminally investigate or prosecute any alcohol or drug abuse patient.[facility] HospitalIn the event this information is protected by the Federal Confidentiality of Alcohol and Drug Abuse Patient Records regulations: The Federal rules restrict any use of the information to criminally investigate or prosecute any alcohol or drug abuse patient.[facility] HospitalIn the event this information is protected by the Federal Confidentiality of Alcohol and Drug Abuse Patient Records regulations: The Federal rules restrict any use of the information to criminally investigate or prosecute any alcohol or drug abuse patient.[facility] HospitalIn the event this information is protected by the Federal Confidentiality of Alcohol and Drug Abuse Patient Records regulations: The Federal rules restrict any use of the information to criminally investigate or prosecute any alcohol or drug abuse patient.[facility] HospitalIn the event this information is protected by the Federal Confidentiality of Alcohol and Drug Abuse Patient Records regulations: The Federal rules restrict any use of the information to criminally investigate or prosecute any alcohol or drug abuse patient.[facility] HospitalIn the event this information is protected by the Federal Confidentiality of Alcohol and Drug Abuse Patient Records regulations: The Federal rules restrict any use of the information to criminally investigate or prosecute any alcohol or drug abuse patient.[facility] HospitalIn the event this information is protected by the Federal Confidentiality of Alcohol and Drug Abuse Patient Records regulations: The Federal rules restrict any use of the information to criminally investigate or prosecute any alcohol or drug abuse patient.[facility] HospitalIn the event this information is protected by the Federal Confidentiality of Alcohol and Drug Abuse Patient Records regulations: The Federal rules restrict any use of the information to criminally investigate or prosecute any alcohol or drug abuse patient.[facility] HospitalIn the event this information is protected by the Federal Confidentiality of Alcohol and Drug Abuse Patient Records regulations: The Federal rules restrict any use of the information to criminally investigate or prosecute any alcohol or drug abuse patient.[facility] HospitalIn the event this information is protected by the Federal Confidentiality of Alcohol and Drug Abuse Patient Records regulations: The Federal rules restrict any use of the information to criminally investigate or prosecute any alcohol or drug abuse patient.[facility] HospitalIn the event this information is protected by the Federal Confidentiality of Alcohol and Drug Abuse Patient Records regulations: The Federal rules restrict any use of the information to criminally investigate or prosecute any alcohol or drug abuse patient.[facility] HospitalIn the event this information is protected by the Federal Confidentiality of Alcohol and Drug Abuse Patient Records regulations: The Federal rules restrict any use of the information to criminally investigate or prosecute any alcohol or drug abuse patient.[facility] HospitalIn the event this information is protected by the Federal Confidentiality of Alcohol and Drug Abuse Patient Records regulations: The Federal rules restrict any use of the information to criminally investigate or prosecute any alcohol or drug abuse patient.[facility] HospitalIn the event this information is protected by the Federal Confidentiality of Alcohol and Drug Abuse Patient Records regulations: The Federal rules restrict any use of the information to criminally investigate or prosecute any alcohol or drug abuse patient.[facility] HospitalIn the event this information is protected by the Federal Confidentiality of Alcohol and Drug Abuse Patient Records regulations: The Federal rules restrict any use of the information to criminally investigate or prosecute any alcohol or drug abuse patient.[facility] HospitalIn the event this information is protected by the Federal Confidentiality of Alcohol and Drug Abuse Patient Records regulations: The Federal rules restrict any use of the information to criminally investigate or prosecute any alcohol or drug abuse patient.[facility] HospitalIn the event this information is protected by the Federal Confidentiality of Alcohol and Drug Abuse Patient Records regulations: The Federal rules restrict any use of the information to criminally investigate or prosecute any alcohol or drug abuse patient.[facility] HospitalIn the event this information is protected by the Federal Confidentiality of Alcohol and Drug Abuse Patient Records regulations: The Federal rules restrict any use of the information to criminally investigate or prosecute any alcohol or drug abuse patient.[facility] HospitalIn the event this information is protected by the Federal Confidentiality of Alcohol and Drug Abuse Patient Records regulations: The Federal rules restrict any use of the information to criminally investigate or prosecute any alcohol or drug abuse patient.[facility] HospitalIn the event this information is protected by the Federal Confidentiality of Alcohol and Drug Abuse Patient Records regulations: The Federal rules restrict any use of the information to criminally investigate or prosecute any alcohol or drug abuse patient.[facility] HospitalIn the event this information is protected by the Federal Confidentiality of Alcohol and Drug Abuse Patient Records regulations: The Federal rules restrict any use of the information to criminally investigate or prosecute any alcohol or drug abuse patient.[facility] HospitalIn the event this information is protected by the Federal Confidentiality of Alcohol and Drug Abuse Patient Records regulations: The Federal rules restrict any use of the information to criminally investigate or prosecute any alcohol or drug abuse patient.[facility] HospitalIn the event this information is protected by the Federal Confidentiality of Alcohol and Drug Abuse Patient Records regulations: The Federal rules restrict any use of the information to criminally investigate or prosecute any alcohol or drug abuse patient.[facility] HospitalIn the event this information is protected by the Federal Confidentiality of Alcohol and Drug Abuse Patient Records regulations: The Federal rules restrict any use of the information to criminally investigate or prosecute any alcohol or drug abuse patient.[facility] HospitalIn the event this information is protected by the Federal Confidentiality of Alcohol and Drug Abuse Patient Records regulations: The Federal rules restrict any use of the information to criminally investigate or prosecute any alcohol or drug abuse patient.[facility] HospitalIn the event this information is protected by the Federal Confidentiality of Alcohol and Drug Abuse Patient Records regulations: The Federal rules restrict any use of the information to criminally investigate or prosecute any alcohol or drug abuse patient.[facility] HospitalIn the event this information is protected by the Federal Confidentiality of Alcohol and Drug Abuse Patient Records regulations: The Federal rules restrict any use of the information to criminally investigate or prosecute any alcohol or drug abuse patient.[facility] HospitalIn the event this information is protected by the Federal Confidentiality of Alcohol and Drug Abuse Patient Records regulations: The Federal rules restrict any use of the information to criminally investigate or prosecute any alcohol or drug abuse patient.[facility] HospitalIn the event this information is protected by the Federal Confidentiality of Alcohol and Drug Abuse Patient Records regulations: The Federal rules restrict any use of the information to criminally investigate or prosecute any alcohol or drug abuse patient.[facility] HospitalIn the event this information is protected by the Federal Confidentiality of Alcohol and Drug Abuse Patient Records regulations: The Federal rules restrict any use of the information to criminally investigate or prosecute any alcohol or drug abuse patient.[facility] HospitalIn the event this information is protected by the Federal Confidentiality of Alcohol and Drug Abuse Patient Records regulations: The Federal rules restrict any use of the information to criminally investigate or prosecute any alcohol or drug abuse patient.[facility] HospitalIn the event this information is protected by the Federal Confidentiality of Alcohol and Drug Abuse Patient Records regulations: The Federal rules restrict any use of the information to criminally investigate or prosecute any alcohol or drug abuse patient.[facility] HospitalIn the event this information is protected by the Federal Confidentiality of Alcohol and Drug Abuse Patient Records regulations: The Federal rules restrict any use of the information to criminally investigate or prosecute any alcohol or drug abuse patient.[facility] HospitalIn the event this information is protected by the Federal Confidentiality of Alcohol and Drug Abuse Patient Records regulations: The Federal rules restrict any use of the information to criminally investigate or prosecute any alcohol or drug abuse patient.[facility] HospitalIn the event this information is protected by the Federal Confidentiality of Alcohol and Drug Abuse Patient Records regulations: The Federal rules restrict any use of the information to criminally investigate or prosecute any alcohol or drug abuse patient.[facility] HospitalIn the event this information is protected by the Federal Confidentiality of Alcohol and Drug Abuse Patient Records regulations: The Federal rules restrict any use of the information to criminally investigate or prosecute any alcohol or drug abuse patient.[facility] HospitalIn the event this information is protected by the Federal Confidentiality of Alcohol and Drug Abuse Patient Records regulations: The Federal rules restrict any use of the information to criminally investigate or prosecute any alcohol or drug abuse patient.[facility] HospitalIn the event this information is protected by the Federal Confidentiality of Alcohol and Drug Abuse Patient Records regulations: The Federal rules restrict any use of the information to criminally investigate or prosecute any alcohol or drug abuse patient.[facility] HospitalIn the event this information is protected by the Federal Confidentiality of Alcohol and Drug Abuse Patient Records regulations: The Federal rules restrict any use of the information to criminally investigate or prosecute any alcohol or drug abuse patient.[facility] HospitalIn the event this information is protected by the Federal Confidentiality of Alcohol and Drug Abuse Patient Records regulations: The Federal rules restrict any use of the information to criminally investigate or prosecute any alcohol or drug abuse patient.[facility] HospitalIn the event this information is protected by the Federal Confidentiality of Alcohol and Drug Abuse Patient Records regulations: The Federal rules restrict any use of the information to criminally investigate or prosecute any alcohol or drug abuse patient.[facility] HospitalIn the event this information is protected by the Federal Confidentiality of Alcohol and Drug Abuse Patient Records regulations: The Federal rules restrict any use of the information to criminally investigate or prosecute any alcohol or drug abuse patient.[facility] HospitalIn the event this information is protected by the Federal Confidentiality of Alcohol and Drug Abuse Patient Records regulations: The Federal rules restrict any use of the information to criminally investigate or prosecute any alcohol or drug abuse patient.[facility] Reason for Visit (unrecogniz ed section and content) Reason Comments Infusion Specialty Diagnoses / Procedures Referred By Contac t Referred To Contact Diagnoses Rheumatoid arthritis involving multiple sites, unspecified whether rheumatoid factor present (HCC) Rheumatoid arthritis involving multiple sites with positive rheumatoid factor (HCC) Procedures ABATACEPT INJECTION Jennifer Arias MD [address] [place] [address] Andrew Treat [facility] [address] [place] [address] Referral ID Status Reason Start Date Expiration Date V isits Requested Visits Authorized [id number] Authorized 04/11/2023 09/06/2023 12 6 Specialty Diagnoses / Procedures Referred By Contac t Referred To Contact HEMONC INFUSION Diagnoses Other specified rheumatoid arthritis, multiple sites Procedures INJECTION, ZOLEDRONIC ACID, 1 MG Reclast Jennifer Arias MD [address] [place] [address] Andrew Treat [facility] [address] [place] [address] Referral ID Status Reason Start Date Expiration Date V isits Requested Visits Authorized [id number] Authorized 01/18/2021 01/03/2024 1 14 Reason Comments Orders Specialty Diagnoses / Procedures Referred By Contac t Referred To Contact HEMONC INFUSION Diagnoses Other specified rheumatoid arthritis, multiple sites Procedures Jennifer Valderrama MD [address] [place] [address] Andrew Treat [facility] [address] [place] [address] Referral ID Status Reason Start Date Expiration Date Visits Requested Visits Authorized [id number] Authorized Patient Cleared INN/SMCP Payor Auth Obtained 08/17/2021 08/16/2022 99 99 Reason Onset Date Comments Refill Request 11/19/2021 Reason Onset Date Comments Vomiting 04/19/2021 Specialty Diagnoses / Procedures Referred By Contac t Referred To Contact HEMONC INFUSION Diagnoses Other specified rheumatoid arthritis, multiple sites Procedures Jennifer Valderrama MD [address] [facility] [address] [place] [address] Andrew Treat [address] [place] [address] Referral ID Status Reason Start Date Expiration Date Visits Requested Visits Authorized [id number] Pending Review Patient Cleared INN/SMCP Payor Auth Obtained 08/17/2021 08/16/2022 99 99 Referral ID Status Reason Start Date Expiration Date Visits Requested Visits Authorized [id number] Authorized Patient Cleared INN/SMCP Payor Auth Obtained 08/17/2021 08/16/2022 12 99 Reason Comments APPROVED Reclast APPROVED [id number] 01.25.2022 - 01.25.2023 per [facility] medicare Portal Reason Onset Date Comments Refill Request 01/08/2022 Reason Comments Refill Request Reason Onset Date Comments Refill Request 01/18/2022 Reason Comments Rheumatoid Arthritis Osteoporosis Specialty Diagnoses / Procedures Referred By Contac t Referred To Contact Rheumatology / RHEUMATOLOGY Diagnoses RA/Virtual sarah January Procedures OFFICE/OUTPATIENT ESTABLISHED MOD MDM 30-39 MIN VIDEO SPEC EST Jennifer Arias MD [address] [place] [address] Sarah Pearson PA-C [address] [place] [address] Referral ID Status Reason Start Date Expiration Date Visits Re quested Visits Authorized [id number] Closed 01/30/2022 07/28/2022 1 1 Reason Comments Injections Satsuma Reason Comments Follow Up Reason Comments Future Appointment Satsuma Reason Comments Appointment Reason Comments Future Appointment Referral ID Status Reason Start Date Expiration Date Visits Requested Visits Authorized [id number] Pending Review Patient Cleared INN/SMCP Payor Auth Obtained Financial Clearance Not Required 08/17/2021 08/16/2022 12 99 Reason Onset Date Comments Refill Request 04/18/2022 Reason Onset Date Comments Refill Request 04/13/2022 Reason Comments Headache cough, sore throat, loss of voice, vomiting and headache x 3 days Reason Comments Results Reason Comments Covid Test Result Reason Onset Date Comments Refill Request 06/11/2022 Reason Comments Rheumatoid Arthritis Reason Comments Follow Up P/O injections Low Back Pain Reason Onset Date Comments Refill Request 08/14/2022 Reason Comments Medical Attestation forms Reason Comments localized osteoporosis without current p athological fracture Reason Comments APPROVED Baironia APPROVED [id number] 09.06.22 - 09.06.23 [facility] Medicare Portal Reason Onset Date Comments Refill Request 10/31/2022 Specialty Diagnoses / Procedures Referred By Contac t Referred To Contact [facility] INFUSION Diagnoses Other specified rheumatoid arthritis, multiple sites Procedures ABATACEPT INJECTION ORENCJennifer Adhikari MD [address] [place] [address] Andrew Treat [facility] [address] [place] [address] Referral ID Status Reason Start Date Expiration Date Visits Requested Visits Authorized [id number] Authorized Patient Cleared INN/SMCP Payor Auth Obtained Financial Clearance Not Required 08/17/2021 09/06/2023 12 99 Reason Onset Date Comments Refill Request 12/24/2022 Reason Comments Patient Question Reason Comments PRECERT NOT REQUIRED Zoledronic Acid 5mg PRECERT NOT REQUIRED [id number] 01.02.23 - 01.03.24 for 1 visit [facility] Dual/Portal Reason Comments Osteoporosis Reason Comments Radio Gen RMP Reason Comments Medication Preauthorization Orencia- Bat h Pending [id number] [facility]/Portal Specialty Diagnoses / Procedures Referred By Contac t Referred To Contact Diagnoses Rheumatoid arthritis involving multiple sites, unspecified whether rheumatoid factor present (HCC) Rheumatoid arthritis involving multiple sites with positive rheumatoid factor (HCC) Procedures ABATACEPT INJECTION ABATACEPT INJECTION Jennifer Arias MD [address] [address] Andrew Treat [facility] [address] [place] [address] Referral ID Status Reason Start Date Expiration Date V isits Requested Visits Authorized [id number] Authorized 04/11/2023 09/16/2024 12 17 Referral ID Status Reason Start Date Expiration Date Visits Re quested Visits Authorized [id number] Closed 04/11/2023 09/16/2024 12 17 Reason Comments Joint Pain Osteoporosis BMD on 07/10/2022 Specialty Diagnoses / Procedures Referred By Contac t Referred To Contact Diagnoses Rheumatoid arthritis involving multiple sites with positive rheumatoid factor (HCC) Procedures ABATACEPT INJECTION Tracy Velez PA-C [address] [place] [address] Andrew Treat [facility] [address] [place] [address] Referral ID Status Reason Start Date Expiration Date V isits Requested Visits Authorized [id number] Authorized 11/11/2023 09/16/2024 1 13 Specialty Diagnoses / Procedures Referred By Contac t Referred To Contact Radiology / [facility] Diagnoses 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, U09.9] Procedures XR CHEST Selene Pierre MD [address] [place] [address] Radio General [facility] [address] [place] [address] Referral ID Status Reason Start Date Expiration Date Visits Re quested Visits Authorized [id number] Closed 05/01/2021 07/28/2021 1 1 Reason Comments Results Reason Comments New Patient Specialty Diagnoses / Procedures Referred By Contac t Referred To Contact Hematology Diagnoses Iron deficiency anemia, unspecified iron deficiency anemia type Procedures CONSULT TO HEMATOLOGY OFFICE/OUTPATIENT NEW HIGH MDM 60 MINUTES Sarah Pearson PA-C [address] [place] [address] Referral ID Status Reason Start Date Expiration Date V isits Requested Visits Authorized [id number] Closed PCP Requested Referral 05/29/2024 08/27/2024 1 1 Reason Comments Non-Chemotherapy Treatment Specialty Diagnoses / Procedures Referred By Contac t Referred To Contact Diagnoses Rheumatoid arthritis involving multiple sites with positive rheumatoid factor (HCC) Procedures ABATACEPT INJECTION Tracy Velez PA-C [address] [place] [address] Andrew [facility] [address] [place] [address] Referral ID Status Reason Start Date Expiration Date Visits Requested Visits Authorized [id number] Authorized Patient Cleared - Admin/Chairm an/Director advise to proceed or did not respond 11/11/2023 06/16/2025 19 19 Specialty Diagnoses / Procedures Referred By Contac t Referred To Contact Diagnoses Iron 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 blood loss Iron malabsorption Procedures IRON SUCROSE INJECTION PER 1 MG Josh Bennett DO [address] [place] [address] Andrew [facility] [address] [place] [address] Referral ID Status Reason Start Date Expiration Date V isits Requested Visits Authorized [id number] Authorized 06/15/2024 06/18/2025 10 10 Specialty Diagnoses / Procedures Referred By Contac t Referred To Contact Diagnoses Iron 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 blood loss Iron malabsorption Procedures IRON SUCROSE INJECTION PER 1 MG Josh Bennett, DO [address] [place] [address] Andrew [facility] [address] [place] [address] Reason Comments Rectal Problem Hemorrhoids and yeas t infection x 1 week Reason Comments avs 09/15 Reason Comments New Patient Reason Comments Orders Reason Onset Date Comments Refill Request 09/15/2024 Reason Comments Social Work Services Reason Comments Consult Specialty Diagnoses / Procedures Referred By Contac t Referred To Contact Radiation Oncology Diagnoses Anal cancer (HCC) Procedures RAD/ONC CONSULT OFFICE/OUTPATIENT NEW HIGH MDM 60 MINUTES Josh Bennett, DO [address] [place] [address] Phone: tel: fax: Referral ID Status Reason Start Date Expiration Date V isits Requested Visits Authorized [id number] Closed PCP Requested Referral 09/15/2024 09/15/2025 [address] Specialty Diagnoses / Procedures Referred By Contac t Referred To Contact CT IMAGING Diagnoses Anal cancer (HCC) Procedures CT CHEST W IVCON DIAGNOSTIC COMPUTED TOMOGRAPHY THORAX W/CONTRAST Johs Bennett, DO [address] [place] [address] Phone: tel: fax: [place] [address] Referral ID Status Reason Start Date Expiration Date V isits Requested Visits Authorized [id number] Closed Auto-Generate d Referral 09/16/2024 10/16/2025 1 1 Reason Comments UTI Low back pain, frequ ency, lower abd pressure, nausea x1 week Reason Comments First Time Treatment Education 5FU/Mitom ycin Reason Comments appointment change Reason Comments Rheumatoid Arthritis Reason Comments Well Woman Specialty Diagnoses / Procedures Referred By Contac t Referred To Contact Gynecology Diagnoses Anal cancer (HCC) Procedures CONSULT TO GYNECOLOGY OFFICE/OUTPATIENT [facility] MDM 60 MINUTES Josh Bennett, DO [address] [place] [address] Phone: tel: fax: Referral ID Status Reason Start Date Expiration Date V isits Requested Visits Authorized [id number] Closed PCP Requested Referral Auto-Generated Referral 09/15/2024 09/15/2025 1 1 Reason Onset Date Comments Simulation Request Form 09/28/2024 Reason Comments Chemotherapy Treatment Specialty Diagnoses / Procedures Referred By Contac t Referred To Contact Diagnoses Anal cancer (HCC) Procedures FLUOROURACIL INJECTION MITOMYCIN 5 MG INJ Josh Bennett, DO [address] [place] [address] Phone: tel: fax: Josh Bennett, DO [address] [place] [address] Phone: tel: fax: Referral ID Status Reason Start Date Expiration Date V isits Requested Visits Authorized [id number] Authorized 09/21/2024 09/21/2025 99 99 Reason Comments Radiotherapy On-treatment Visit Reason Comments Audiovisual Tech - Other C1D1 Post Treat ment Call (5FU/Mitomycin) Reason Comments Established Patient Reason Comments Audiovisual Tech - Other Follow-up Reason Comments CADD Pump D/C Reason Comments Blood Draw (CVAD) Reason Comments Patient Update Reason Comments Patient Update vomiting and diarrhe a Reason Comments [place] PICC Reason Comments Radiotherapy On-treatment Visit Fx # 11 Reason Comments Urinary Problem Patient Update Reason Comments Radiology Pre Procedure Instructions Reason Onset Date Comments Refill Request 11/02/2024 Reason Comments Social Work Services Financial Concerns Reason Comments Patient Education Discharge instructio ns-completed radiation Reason Onset Date Comments Refill Request 11/26/2024 Reason Comments Joint Pain Reason Comments Appointment Reclast Reason Comments Recheck Reason Comments 5/5 AVS Reason Onset Date Comments Refill Request 01/05/2025 Specialty Diagnoses / Procedures Referred By Contac t Referred To Contact Diagnoses Rheumatoid arthritis involving multiple sites with positive rheumatoid factor (HCC) Other osteoporosis without current pathological fracture Procedures INJECTION, ZOLEDRONIC ACID, 1 [place] [address] [place] [address] Phone: tel: fax: Jennifer Arias MD [address] [place] [address] Phone: tel: fax: Referral ID Status Reason Start Date Expiration Date V isits Requested Visits Authorized [id number] Authorized 01/05/2025 01/05/2026 1 1 Reason Onset Date Comments Refill Request 01/13/2025 Reason Onset Date Comments Refill Request 02/03/2025 Specialty Diagnoses / Procedures Referred By Contac t Referred To Contact Diagnoses Other osteoporosis without current pathological fracture Rheumatoid arthritis involving multiple sites with positive rheumatoid factor (HCC) Procedures [place] [address] [place] [address] Phone: tel: fax: Jennifer Arias MD [address] [place] [address] Phone: tel: fax: Referral ID Status Reason Start Date Expiration Date V isits Requested Visits Authorized [id number] Authorized 06/16/2024 01/15/2026 17 17 Care Teams (unrecognized sec tion and content) Pediatric Critical Care Nurse Relationship Specialty Start Date End Date Selene Pierre MD [address] [place] [address] PCP - General Internal Medicine 06/03/14 Ismael Kidd (Rn)(Hist), RN Specialty Audiovisual Tech Hematology/Oncology 08/30/17 Quin Nolan, DO [address] [place] [address] Hospice Physician Peripheral Vascular 01/26/19 Jennifer Arias MD [address] [place], [place] [address] Physician Internal Medicine 02/11/19 Ronit Rahman DO [address] [place] [address] Physician Cardiology 02/11/19 Kj Rowe MD [address] [facility] [place] [place] [address] Physician Pulmonary and Critical Care Medicine 04/29/19 Ronit Rahman DO [address] [place] [address] Primary Staff Physician Cardiology 01/12/20 Pediatric Critical Care Nurse Relationship Specialty Start Date End Date Selene Pierre MD [address] [place], [place] [address] PCP - General Internal Medicine 06/03/14 Ismael Kidd (Rn)(Hist), RN Specialty Audiovisual Tech Hematology/Oncology 08/30/17 Quin Nolan, DO [address] [place], [place] [address] Hospice Physician Peripheral Vascular 01/26/19 Jennifer Arias MD [address] [place], [place] [address] Physician Internal Medicine 02/11/19 Ronit Rahman DO [address] [place] [address] Physician Cardiology 02/11/19 Kj Rowe MD [address] [facility] [place], [place] [address] Physician Pulmonary and Critical Care Medicine 04/29/19 Ronit Rahman DO [address] [place] [address] Primary Staff Physician Cardiology 01/12/20 Pediatric Critical Care Nurse Relationship Specialty Start Date End Date Selene Pierre MD [address] [place] [address] PCP - General Internal Medicine 06/03/14 Ismael Kidd (Rn)(Hist), RN Specialty Audiovisual Tech Hematology/Oncology 08/30/17 Quin Nolan, DO [address] [place] [address] Hospice Physician Peripheral Vascular 01/26/19 Jennifer Arias MD [address] [place], [place] [address] Physician Internal Medicine 02/11/19 Ronit Rahman, DO [address] [place] [address] Physician Cardiology 02/11/19 Kj Rowe MD [address] [place] [address] Physician Pulmonary and Critical Care Medicine 04/29/19 Ronit Rahman, DO [address] [place] [address] Primary Staff Physician Cardiology 01/12/20 Pediatric Critical Care Nurse Relationship Specialty Start Date End Date Selene Pierre MD [address] [place] [address] PCP - General Internal Medicine 06/03/14 Ismael Kidd (Rn)(Hist), RN Specialty Audiovisual Tech Hematology/Oncology 08/30/17 Quin Nolan, DO [address] [place], [place] [address] Hospice Physician Peripheral Vascular 01/26/19 Jennifer Arias MD [address] [place], [place] [address] Physician Internal Medicine 02/11/19 Ronit Rahman DO [address] [place] [address] Physician Cardiology 02/11/19 Kj Rowe MD [address] [facility] [place] [address] Physician Pulmonary and Critical Care Medicine 04/29/19 Ronit Rahman DO [address] [place] [address] Primary Staff Physician Cardiology 01/12/20 Pediatric Critical Care Nurse Relationship Specialty Start Date End Date Selene Pierre MD [address] [place] [address] PCP - General Internal Medicine 06/03/14 Ismael Kidd (Rn)(Hist), RN Specialty Audiovisual Tech Hematology/Oncology 08/30/17 Quin Nolan, DO [address] [place] [address] Hospice Physician Peripheral Vascular 01/26/19 Jennifer Arias MD [address] [address] Physician Internal Medicine 02/11/19 Ronit Rahman, DO [address] [place] [address] Physician Cardiology 02/11/19 Kj Rowe MD [address] [place] [address] Physician Pulmonary and Critical Care Medicine 04/29/19 Ronit Rahman DO [address] [place] [address] Primary Staff Physician Cardiology 01/12/20 Pediatric Critical Care Nurse Relationship Specialty Start Date End Date Selene Pierre MD [address] [place] [address] PCP - General Internal Medicine 06/03/14 Ismael Kidd (Rn)(Hist), RN Specialty Audiovisual Tech Hematology/Oncology 08/30/17 Quin Nolan, DO [address] [place], [place] [address] Hospice Physician Peripheral Vascular 01/26/19 Jennifer Arias MD [address] [place], [place] [address] Physician Internal Medicine 02/11/19 Ronit Rahman, DO [address] [place] [address] Physician Cardiology 02/11/19 Kj Rowe MD [address] [place] [address] Physician Pulmonary and Critical Care Medicine 04/29/19 Ronit Rahman, DO [address] [place] [address] Primary Staff Physician Cardiology 01/12/20 Pediatric Critical Care Nurse Relationship Specialty Start Date End Date Selene Pierre MD [address] [place], [place] [address] PCP - General Internal Medicine 06/03/14 Ismael Kidd (Rn)(Hist), RN Specialty Audiovisual Tech Hematology/Oncology 08/30/17 Quin Nolan, DO [address] [place], [place] [address] Hospice Physician Peripheral Vascular 01/26/19 Jennifer Arias MD [address] [place], [place] [address] Physician Internal Medicine 02/11/19 Ronit Rahman, DO [address] [place] [address] Physician Cardiology 02/11/19 Kj Rowe MD [address] [facility] [place] [place] [address] Physician Pulmonary and Critical Care Medicine 04/29/19 Ronit Rahman, DO [address] [place] [address] Primary Staff Physician Cardiology 01/12/20 Pediatric Critical Care Nurse Relationship Specialty Start Date End Date Selene Pierre MD [address] [place] [address] PCP - General Internal Medicine 06/03/14 Ismael Kidd (Rn)(Hist), RN Specialty Audiovisual Tech Hematology/Oncology 08/30/17 Quin Nolan, DO [address] [place] [address] Hospice Physician Peripheral Vascular 01/26/19 Jennifer Arias MD [address] [address] Physician Internal Medicine 02/11/19 Ronit Rahman, DO [address] [place] [address] Physician Cardiology 02/11/19 Kj Rowe MD [address] [place] [address] Physician Pulmonary and Critical Care Medicine 04/29/19 Ronit Rahman, DO [address] [place] [address] Primary Staff Physician Cardiology 01/12/20 Pediatric Critical Care Nurse Relationship Specialty Start Date End Date Selene Pierre MD [address] [place] [address] PCP - General Internal Medicine 06/03/14 Ismael Kidd (Rn)(Hist), RN Specialty Audiovisual Tech Hematology/Oncology 08/30/17 Quin Nolan, DO [address] [place] [address] Hospice Physician Peripheral Vascular 01/26/19 Jennifer Arias MD [address] [place], [place] [address] Physician Internal Medicine 02/11/19 Ronit Rahman, DO [address] [place] [address] Physician Cardiology 02/11/19 Kj Rowe MD [address] [facility] [place] [place] [address] Physician Pulmonary and Critical Care Medicine 04/29/19 Ronit Rahman DO [address] [place] [address] Primary Staff Physician Cardiology 01/12/20 Pediatric Critical Care Nurse Relationship Specialty Start Date End Date Selene Pierre MD [address] [place], [place] [address] PCP - General Internal Medicine 06/03/14 Ismael Kidd (Rn)(Hist), RN Specialty Audiovisual Tech Hematology/Oncology 08/30/17 Quin Nolan, DO [address] [place], [place] [address] Hospice Physician Peripheral Vascular 01/26/19 Jennifer Arias MD [address] [place], [place] [address] Physician Internal Medicine 02/11/19 Ronit Rahman DO [address] [place] [address] Physician Cardiology 02/11/19 Kj Rowe MD [address] [facility] [place] [place] [address] Physician Pulmonary and Critical Care Medicine 04/29/19 Ronit Rahman DO [address] [place] [address] Primary Staff Physician Cardiology 01/12/20 Pediatric Critical Care Nurse Relationship Specialty Start Date End Date Selene Pierre MD [address] [place] [address] PCP - General Internal Medicine 06/03/14 Ismael Kidd (Rn)(Hist), RN Specialty Audiovisual Tech Hematology/Oncology 08/30/17 Quin Nolan, DO [address] [place] [facility] [place] [address] Hospice Physician Peripheral Vascular 01/26/19 Jennifer Arias MD [address] [place], [place] [address] Physician Internal Medicine 02/11/19 Ronit Rahman, DO [address] [place] [address] Physician Cardiology 02/11/19 Kj Rowe MD [address] [place] [address] Physician Pulmonary and Critical Care Medicine 04/29/19 Ronit Rahman, DO [address] [place] [address] Primary Staff Physician Cardiology 01/12/20 Pediatric Critical Care Nurse Relationship Specialty Start Date End Date Selene Pierre MD [address] [place] [address] PCP - General Internal Medicine 06/03/14 Ismael Kidd (Rn)(Hist), RN Specialty Audiovisual Tech Hematology/Oncology 08/30/17 Quin Nolan, DO [address] [place] [place] [address] Hospice Physician Peripheral Vascular 01/26/19 Jennifer Arias MD [address] [place], [place] [address] Physician Internal Medicine 02/11/19 Ronit Rahman DO [address] [place] [address] Physician Cardiology 02/11/19 Kj Rowe MD [address] [facility] [place] [address] Physician Pulmonary and Critical Care Medicine 04/29/19 Ronit Rahman DO [address] [place] [address] Primary Staff Physician Cardiology 01/12/20 Pediatric Critical Care Nurse Relationship Specialty Start Date End Date Selene Pierre MD [address] [place] [address] PCP - General Internal Medicine 06/03/14 Ismael Kidd (Rn)(Hist), RN Specialty Audiovisual Tech Hematology/Oncology 08/30/17 Quin Nolan, DO [address] [place] [address] Hospice Physician Peripheral Vascular 01/26/19 Jennifer Arias MD [address] [address] Physician Internal Medicine 02/11/19 Ronit Rahman DO [address] [place] [address] Physician Cardiology 02/11/19 Kj Rowe MD [address] [place] [address] Physician Pulmonary and Critical Care Medicine 04/29/19 Ronit Rahman DO [address] [place] [address] Primary Staff Physician Cardiology 01/12/20 Pediatric Critical Care Nurse Relationship Specialty Start Date End Date Selene Pierre MD [address] [place] [address] PCP - General Internal Medicine 06/03/14 Ismael Kidd (Rn)(Hist), RN Specialty Audiovisual Tech Hematology/Oncology 08/30/17 Quin Nolan, DO [address] [facility], [place] [address] Hospice Physician Peripheral Vascular 01/26/19 Jennifer Arias MD [address] [place], [place] [address] Physician Internal Medicine 02/11/19 JosiahRonit abdul, DO [address] [place] [address] Physician Cardiology 02/11/19 Kj Rowe MD [address] [facility] [place] [address] Physician Pulmonary and Critical Care Medicine 04/29/19 Ronit Rahman, DO [address] [place] [address] Primary Staff Physician Cardiology 01/12/20 Pediatric Critical Care Nurse Relationship Specialty Start Date End Date Selene Pierre MD [address] [facility], [place] [address] PCP - General Internal Medicine 06/03/14 Ismael Kidd (Rn)(Hist), RN Specialty Audiovisual Tech Hematology/Oncology 08/30/17 Quin Nolan, DO [address] [place], [place] [address] Hospice Physician Peripheral Vascular 01/26/19 Jennifer Arias MD [address] [facility] [address] [place], [place] [address] Physician Internal Medicine 02/11/19 Ronit Rahman, DO [address] [place] [address] Physician Cardiology 02/11/19 Kj Rowe MD [address] [facility] [place] [address] Physician Pulmonary and Critical Care Medicine 04/29/19 Ronit Rahman, DO [address] [place] [address] Primary Staff Physician Cardiology 01/12/20 Pediatric Critical Care Nurse Relationship Specialty Start Date End Date Selene Pierre MD [address] [place] [address] PCP - General Internal Medicine 06/03/14 Ismael Kidd (Rn)(Hist), RN Specialty Audiovisual Tech Hematology/Oncology 08/30/17 Quin Nolan, DO [address] [place] [address] Hospice Physician Peripheral Vascular 01/26/19 Jennifer Arias MD [address] [address] Physician Internal Medicine 02/11/19 Ronit Rahman, DO [address] [place] [address] Physician Cardiology 02/11/19 Kj Rowe MD [address] [place], [place] [address]271 Physician Pulmonary and Critical Care Medicine 04/29/19 Ronit Rahman, DO [address] [place] [address] Primary Staff Physician Cardiology 01/12/20 Pediatric Critical Care Nurse Relationship Specialty Start Date End Date Selene Pierre MD [address] [place] [address] PCP - General Internal Medicine 06/03/14 Ismael Kidd (Rn)(Hist), RN Specialty Audiovisual Tech Hematology/Oncology 08/30/17 Quin Nolan, DO [address] [place] [address] Hospice Physician Peripheral Vascular 01/26/19 Jennifer Airas MD [address] [place], [place] [address] Physician Internal Medicine 02/11/19 Ronit Rahman, DO [address] [place] [address] Physician Cardiology 02/11/19 Kj Rowe MD [address] [facility] [place] [address] Physician Pulmonary and Critical Care Medicine 04/29/19 Ronit Rahman DO [address] [place] [address] Primary Staff Physician Cardiology 01/12/20 Pediatric Critical Care Nurse Relationship Specialty Start Date End Date Selene Pierre MD [address] [place], [place] [address]291 PCP - General Internal Medicine 06/03/14 Ismael Kidd (Rn)(Hist), RN Specialty Audiovisual Tech Hematology/Oncology 08/30/17 Quin Nolan, DO [address] [place], [place] [address]351 Hospice Physician Peripheral Vascular 01/26/19 Jennifer Arias MD [address] [place], [place] [address] Physician Internal Medicine 02/11/19 Ronit Rahman DO [address] [place] [address] Physician Cardiology 02/11/19 Kj Rowe MD [address] [facility] [place], [place] [address] Physician Pulmonary and Critical Care Medicine 04/29/19 Ronit Rahman DO [address] [place] [address] Primary Staff Physician Cardiology 01/12/20 Pediatric Critical Care Nurse Relationship Specialty Start Date End Date Selene Pierre MD [address] [place] [address] PCP - General Internal Medicine 06/03/14 Ismael Kidd (Rn)(Hist), RN Specialty Audiovisual Tech Hematology/Oncology 08/30/17 Quin Nolan, DO [address] [place] [place] [address] Hospice Physician Peripheral Vascular 01/26/19 Jennifer Arias MD [address] [place], [place] [address] Physician Internal Medicine 02/11/19 Ronit Rahman, DO [address] [place] [address] Physician Cardiology 02/11/19 Kj Rowe MD [address] [place] [address] Physician Pulmonary and Critical Care Medicine 04/29/19 Ronit Rahman, DO [address] [place] [address] Primary Staff Physician Cardiology 01/12/20 Pediatric Critical Care Nurse Relationship Specialty Start Date End Date Selene Pierre MD [address] [place] [address] PCP - General Internal Medicine 06/03/14 Ismael Kidd (Rn)(Hist), RN Specialty Audiovisual Tech Hematology/Oncology 08/30/17 Quin Nolan, DO [address] [facility], [place] 39[address]31 Hospice Physician Peripheral Vascular 01/26/19 Jennifer Arias MD [address] [place], [place] [address] Physician Internal Medicine 02/11/19 Ronit Rahman DO [address] [place] [address] Physician Cardiology 02/11/19 Kj Rowe MD [address] [place] [address] Physician Pulmonary and Critical Care Medicine 04/29/19 Ronit Rahman DO [address] [place] [address] Primary Staff Physician Cardiology 01/12/20 Pediatric Critical Care Nurse Relationship Specialty Start Date End Date Selene Pierre MD [address] [place] [address] PCP - General Internal Medicine 06/03/14 Ismael Kidd (Rn)(Hist), RN Specialty Audiovisual Tech Hematology/Oncology 08/30/17 Quin Nolan, DO [address] [place] [address] Hospice Physician Peripheral Vascular 01/26/19 Jennifer Arias MD [address] [place] [address] Physician Internal Medicine 02/11/19 Ronit Rahman DO [address] [place] [address] Physician Cardiology 02/11/19 Kj oRwe MD [address] [place] [address] Physician Pulmonary and Critical Care Medicine 04/29/19 Ronit Rahman, DO [address] [place] [address] Primary Staff Physician Cardiology 01/12/20 Pediatric Critical Care Nurse Relationship Specialty Start Date End Date Selene Pierre MD [address] [place] [address] PCP - General Internal Medicine 06/03/14 Ismael Kidd (Rn)(Hist), RN Specialty Audiovisual Tech Hematology/Oncology 08/30/17 Quin Nolan, DO [address] [facility], [place] 47[address]81 Hospice Physician Peripheral Vascular 01/26/19 Jennifer Arias MD [address] [place], [place] [address] Physician Internal Medicine 02/11/19 Ronit Rahman, DO [address] [place] [address] Physician Cardiology 02/11/19 Kj Rowe MD [address] [facility], [place] 135[address]41 Physician Pulmonary and Critical Care Medicine 04/29/19 Ronit Rahman, DO [address] [place] [address] Primary Staff Physician Cardiology 01/12/20 Pediatric Critical Care Nurse Relationship Specialty Start Date End Date Selene Pierre MD [address] [facility], [place] [address]1901 PCP - General Internal Medicine 06/03/14 Ismael Kidd (Rn)(Hist), RN Specialty Audiovisual Tech Hematology/Oncology 08/30/17 Quin Nolan, DO [address] [facility], [place] [address]491 Hospice Physician Peripheral Vascular 01/26/19 Jennifer Arias MD [address] [facility] [address] [place], [place] [address] Physician Internal Medicine 02/11/19 Ronit Rahman, DO [address] [place] [address] Physician Cardiology 02/11/19 Kj Rowe MD [address] [facility], [place] 133[address]31 Physician Pulmonary and Critical Care Medicine 04/29/19 Ronit Rahman, DO [address] [place] [address] Primary Staff Physician Cardiology 01/12/20 Pediatric Critical Care Nurse Relationship Specialty Start Date End Date Selene Pierre MD [address] [place] [address] PCP - General Internal Medicine 06/03/14 Ismael Kidd (Rn)(Hist), RN Specialty Audiovisual Tech Hematology/Oncology 08/30/17 Quin Nolan, DO [address] [place] [address] Hospice Physician Peripheral Vascular 01/26/19 Jennifer Arias MD [address] [place] [address] Physician Internal Medicine 02/11/19 Ronit Rahman, DO [address] [place] [address] Physician Cardiology 02/11/19 Kj Rowe MD [address] [place] [address] Physician Pulmonary and Critical Care Medicine 04/29/19 Ronit Rahman, DO [address] [place] [address] Primary Staff Physician Cardiology 01/12/20 Pediatric Critical Care Nurse Relationship Specialty Start Date End Date Selene Pierre MD [address] [place] [address] PCP - General Internal Medicine 06/03/14 Ismael Kidd (Rn)(Hist), RN Specialty Audiovisual Tech Hematology/Oncology 08/30/17 Quin Nolan, DO [address] [place] [address] Hospice Physician Peripheral Vascular 01/26/19 Jennifer Arias MD [address] [place], [place] [address] Physician Internal Medicine 02/11/19 JosiahRonit abdul, DO [address] [place] [address] Physician Cardiology 02/11/19 Kj Rowe MD [address] [facility] [place], [place] [address] Physician Pulmonary and Critical Care Medicine 04/29/19 Ronit Rahman DO [address] [place] [address] Primary Staff Physician Cardiology 01/12/20 Pediatric Critical Care Nurse Relationship Specialty Start Date End Date Selene Pierre MD [address] [place], [place] 283741 PCP - General Internal Medicine 06/03/14 Ismael Kidd (Rn)(Hist), RN Specialty Audiovisual Tech Hematology/Oncology 08/30/17 Quin Nolan, DO [address] [place], [place] [address]691 Hospice Physician Peripheral Vascular 01/26/19 Jennifer Arias MD [address] [facility] [address] [place] [address] Physician Internal Medicine 02/11/19 Ronit Rahman, DO [address] [place] [address] Physician Cardiology 02/11/19 Kj Rowe MD [address] [place], [place] 404411 Physician Pulmonary and Critical Care Medicine 04/29/19 Ronit Rahman, DO [address] [place] [address] Primary Staff Physician Cardiology 01/12/20 Team Status: Active Member Role Status Dates Dr. Selene Pierre MD Family Provider Active Julio Arriaga STATISTICAL MACHINE MECHANIC, STATISTICAL MACHINE MECHANIC-C Primary Care Provider Active Team Status: Inactive Member Role Status Dates Dr. Selene Pierre MD Primary Care Provider, Referring Provider Active Patel BENOIT, PA Attending Provider Active Team Status: Inactive Member Role Status Dates Dr. Selene Pierre MD Primary Care Provider, Referring Provider Active Pablo BENOIT, PA Attending Provider Active Team Status: Inactive Member Role Status Dates Dr. Selene Pierre MD Primary Care Provider Active Dr. Usama Sarmiento MD Attending Provider Active Team Status: Inactive Member Role Status Dates Julio Arriaga STATISTICAL MACHINE MECHANIC, STATISTICAL MACHINE MECHANIC-C Primary Care Provider, Referri ng Provider Active Kenya Clark PA, PA Attending Provider Active Team Status: Inactive Member Role Status Dates GIANNI CERVANTES MD Attending Provider Active Julio Arriaga STATISTICAL MACHINE MECHANIC, STATISTICAL MACHINE MECHANIC-C Primary Care Provider Active Pediatric Critical Care Nurse Relationship Specialty Start Date End Date Selene Pierre MD [address] [place], [place] [address] PCP - General Internal Medicine 06/03/14 Ismael Kidd (Rn)(Hist), RN Specialty Audiovisual Tech Hematology/Oncology 08/30/17 Quin Nolan, DO [address] [place], [place] [address]33[address]691 Hospice Physician Peripheral Vascular 01/26/19 Jennifer Arias MD [address] [address] Physician Internal Medicine 02/11/19 Ronit Rahman DO [address] [place] [address] Physician Cardiology 02/11/19 Kj Rowe MD [address] [place], [place] 385301 Physician Pulmonary and Critical Care Medicine 04/29/19 Ronit Rahman DO [address] [place], [place] [address] Primary Staff Physician Cardiology 01/12/20 Team Status: Inactive Member Role Status Dates Dr. Selene Pierre MD Referring Provider Active Jaci Warren STATISTICAL MACHINE MECHANIC, STATISTICAL MACHINE MECHANIC-C Attending Provider Active Julio Arriaga STATISTICAL MACHINE MECHANIC, STATISTICAL MACHINE MECHANIC-C Primary Care Provider Active Team Status: Inactive Member Role Status Dates Julio Arriaga STATISTICAL MACHINE MECHANIC, STATISTICAL MACHINE MECHANIC-C Primary Care Provider Active Jaci Warren STATISTICAL MACHINE MECHANIC, STATISTICAL MACHINE MECHANIC-C Attending Provider, Referrin g Provider Active Pediatric Critical Care Nurse Relationship Specialty Start Date End Date Julio Arriaga, MECHANICAL FIELD ENGINEER.TOBACCO SAMPLER [address] [place] [phone] PCP - General Internal Medicine 10/18/22 Ismael Kidd (Rn)(Hist), RN Specialty Audiovisual Tech Hematology/Oncology 08/30/17 Quin Nolan, DO [address] [place], [place] 109641 Hospice Physician Peripheral Vascular 01/26/19 Jennifer Arias MD [address] [address] Physician Internal Medicine 02/11/19 JosiahRonit abdul [address] [place], [place] [address] Physician Cardiology 02/11/19 Kj Rowe MD [address] [place], [place] 995241 Physician Pulmonary and Critical Care Medicine 04/29/19 JosiahRonit abdul DO [address] [place] [address] Primary Staff Physician Cardiology 01/12/20 Team Status: Active Member Role Status Dates GIANNI CERVANTES MD Referring Provider, Other Provider Active Julio Arriaga STATISTICAL MACHINE MECHANIC, STATISTICAL MACHINE MECHANIC-C Primary Care Provider Active Dr. Isaac Nichols MD Attending Provider Active Team Status: Active Member Role Status Dates GIANNI CERVANTES MD Attending Provider, Referring Prov ider Active Julio Arriaga STATISTICAL MACHINE MECHANIC, STATISTICAL MACHINE MECHANIC-C Primary Care Provider Active Team Status: Inactive Member Role Status Dates GIANNI CERVANTES MD Attending Provider, Referring Prov ider Active Julio Arriaga STATISTICAL MACHINE MECHANIC, STATISTICAL MACHINE MECHANIC-C Primary Care Provider Active Pediatric Critical Care Nurse Relationship Specialty Start Date End Date Julio Arriaga, MECHANICAL FIELD ENGINEER.TOBACCO SAMPLER [address] [place] [phone] PCP - General Internal Medicine 10/18/22 Ismael Kidd (Rn)(Hist), RN Specialty Audiovisual Tech Hematology/Oncology 08/30/17 Quin Nolan, DO [address] [facility] [place], [place] [address] Hospice Physician Peripheral Vascular 01/26/19 Jennifer Arias MD [address] [place], [place] [address]253 Physician Internal Medicine 02/11/19 JosiahRonit abdul, DO [address] [place] [address] Physician Cardiology 02/11/19 Kj Rowe MD [address] [place], [place] 587801 Physician Pulmonary and Critical Care Medicine 04/29/19 JosiahRonit abdul, DO [address] [place] [address] Primary Staff Physician Cardiology 01/12/20 Pediatric Critical Care Nurse Relationship Specialty Start Date End Date Julio Arriaga, MECHANICAL FIELD ENGINEER.TOBACCO SAMPLER [address] [place] [phone] PCP - General Internal Medicine 10/18/22 Ismael Kidd (Rn)(Hist), RN Specialty Audiovisual Tech Hematology/Oncology 08/30/17 Quin Nolan, DO [address] [facility] [address] [place], [place] [address] Hospice Physician Peripheral Vascular 01/26/19 Jennifer Arias MD [address] [place], [place] [address]403 Physician Internal Medicine 02/11/19 Ronit Rahman [address] [place], [place] [address] Physician Cardiology 02/11/19 Kj Rowe MD [address] [place], [place] [address] Physician Pulmonary and Critical Care Medicine 04/29/19 Ronit Rahman DO [address] [place], [place] [address]7915256 Primary Staff Physician Cardiology 01/12/20 Team Status: Active Member Role Status Dates Julio Arriaga STATISTICAL MACHINE MECHANIC, STATISTICAL MACHINE MECHANIC-C Primary Care Provider, Referri ng Provider Active Dr. Andrez Pitts , DO Attending Provider, Other Prov ider Active Team Status: Inactive Member Role Status Dates Julio Arriaga STATISTICAL MACHINE MECHANIC, STATISTICAL MACHINE MECHANIC-C Primary Care Provider, Referri ng Provider Active Dr. Andrez Pitts , DO Attending Provider Active Pediatric Critical Care Nurse Relationship Specialty Start Date End Date Julio Arriaga, MECHANICAL FIELD ENGINEER.TOBACCO SAMPLER [address] [place] [phone] PCP - General Internal Medicine 10/18/22 Ismael Kidd (Rn)(Hist), RN Specialty Audiovisual Tech Hematology/Oncology 08/30/17 Quin Nolan, DO [address] [place], [place] [address] Hospice Physician Peripheral Vascular 01/26/19 Jeninfer Arias MD [address] [address] Physician Internal Medicine 02/11/19 Ronit Rahman DO [address] [place], [place] [address] Physician Cardiology 02/11/19 Kj Rowe MD [address] [place], [place] [address] Physician Pulmonary and Critical Care Medicine 04/29/19 Ronit Rahman, DO [address] [place], [place] [address] Primary Staff Physician Cardiology 01/12/20 Pediatric Critical Care Nurse Relationship Specialty Start Date End Date Juilo Arriaga, MECHANICAL FIELD ENGINEER.TOBACCO SAMPLER [address] [place] [phone] PCP - General Internal Medicine 10/18/22 Ismael Kidd (Rn)(Hist), RN Specialty Audiovisual Tech Hematology/Oncology 08/30/17 Quin Nolan, DO [address] [place], [place] [address] Hospice Physician Peripheral Vascular 01/26/19 Jennifer Arias MD [address] [address] Physician Internal Medicine 02/11/19 Ronit Rahman DO [address] [place], [place] [address] Physician Cardiology 02/11/19 Kj Rowe MD [address] [place], [place] 655331 Physician Pulmonary and Critical Care Medicine 04/29/19 Ronit Rahman DO [address] [place], [place] [id number] Primary Staff Physician Cardiology 01/12/20 Team Status: Inactive Member Role Status Dates Julio Arriaga STATISTICAL MACHINE MECHANIC, STATISTICAL MACHINE MECHANIC-C Primary Care Provider, Referri ng Provider Active Jaci Warren STATISTICAL MACHINE MECHANIC, STATISTICAL MACHINE MECHANIC-C Attending Provider Active Team Status: Inactive Member Role Status Dates Julio Arriaga STATISTICAL MACHINE MECHANIC, STATISTICAL MACHINE MECHANIC-C Primary Care Provider, Referri ng Provider Active Pablo Cruz PA, PA Attending Provider Active Team Status: Inactive Member Role Status Dates Julio Arriaga STATISTICAL MACHINE MECHANIC, STATISTICAL MACHINE MECHANIC-C Primary Care Provider Active Dr. Usama Sarmiento MD Attending Provider Active Team Status: Inactive Member Role Status Dates Julio Arriaga STATISTICAL MACHINE MECHANIC, STATISTICAL MACHINE MECHANIC-C Primary Care Provider Active Pablo BENOIT, PA Attending Provider, Referring Prov ider Active Pediatric Critical Care Nurse Relationship Specialty Start Date End Date Julio Arriaga, MECHANICAL FIELD ENGINEER.TOBACCO SAMPLER [address] [place] [phone] PCP - General Internal Medicine 10/18/22 Ismael Kidd (Rn)(Hist), RN Specialty Audiovisual Tech Hematology/Oncology 08/30/17 Quin Nolan, DO [address] [place] [address] Hospice Physician Peripheral Vascular 01/26/19 Jennifer Arias MD [address] [place] [address] Physician Internal Medicine 02/11/19 JosiahRonit abdul, DO [address] [place] [address] Physician Cardiology 02/11/19 Kj Rowe MD [address] [place] [address] Physician Pulmonary and Critical Care Medicine 04/29/19 Ronit Rahman, DO [address] [place] [address] Primary Staff Physician Cardiology 01/12/20 Pediatric Critical Care Nurse Relationship Specialty Start Date End Date Julio Arriaga, MECHANICAL FIELD ENGINEER.TOBACCO SAMPLER [address] [place] [phone] PCP - General Internal Medicine 10/18/22 Ismael Kidd (Rn)(Hist), RN Specialty Audiovisual Tech Hematology/Oncology 08/30/17 Quin Nolan, DO [address] [place], [place] [address] Hospice Physician Peripheral Vascular 01/26/19 Jennifer Arias MD [address] [place], [place] [address] Physician Internal Medicine 02/11/19 Ronit Rahman DO [address] [place] [address] Physician Cardiology 02/11/19 Kj Rowe MD [address] [place], [place] [address] Physician Pulmonary and Critical Care Medicine 04/29/19 Ronit Rahman DO [address] [place] [address] Primary Staff Physician Cardiology 01/12/20 Pediatric Critical Care Nurse Relationship Specialty Start Date End Date Julio Arriaga, MECHANICAL FIELD ENGINEER.TOBACCO SAMPLER [address] [place] [phone] PCP - General Internal Medicine 10/18/22 Ismael Kidd (Rn)(Hist), RN Specialty Audiovisual Tech Hematology/Oncology 08/30/17 Quin Nolan, DO [address] [place], [place] [address] Hospice Physician Peripheral Vascular 01/26/19 Jennifer Arias MD [address] [facility] [address] [place], [place] [address] Physician Internal Medicine 02/11/19 Ronit Rahman DO [address] [place] [address] Physician Cardiology 02/11/19 Kj Rowe MD [address] [place], [place] [address]441 Physician Pulmonary and Critical Care Medicine 04/29/19 Ronit Rahman DO [address] [place] [address] Primary Staff Physician Cardiology 01/12/20 Team Status: Inactive Member Role Status Dates Julio Arriaga STATISTICAL MACHINE MECHANIC, STATISTICAL MACHINE MECHANIC-C Primary Care Provider, Referri ng Provider Active Dr. Michael Rawls DO Attending Provider Active Team Status: Inactive Member Role Status Dates Julio Arriaga STATISTICAL MACHINE MECHANIC, STATISTICAL MACHINE MECHANIC-C Primary Care Provider Active Dr. Michael Rawls DO Attending Provider, Referring Provider Active Team Status: Active Member Role Status Dates Julio Arriaga STATISTICAL MACHINE MECHANIC, STATISTICAL MACHINE MECHANIC-C Primary Care Provider Active Dr. Michael Rawls DO Admit Provider, Attending Provider, Other Provider Active Team Status: Active Member Role Status Dates Julio Arriaga STATISTICAL MACHINE MECHANIC, STATISTICAL MACHINE MECHANIC-C Primary Care Provider Active Dr. Michael Rawls DO Admit Provider, Attending Provider, Referring Provider, Other Provider Active Team Status: Inactive Member Role Status Dates Julio Arriaga STATISTICAL MACHINE MECHANIC, STATISTICAL MACHINE MECHANIC-C Primary Care Provider Active Dr. Michael Rawls DO Admit Provider, Attending Provider, Referring Provider Active Pediatric Critical Care Nurse Relationship Specialty Start Date End Date Julio Arriaga, MECHANICAL FIELD ENGINEER.TOBACCO SAMPLER [address] [place] [phone] PCP - General Internal Medicine 10/18/22 Ismael Kidd (Rn)(Hist), RN Specialty Audiovisual Tech Hematology/Oncology 08/30/17 Quin Nolan, DO [address] [facility] [place], [place] [id number] Hospice Physician Peripheral Vascular 01/26/19 Jennifer Arias MD [address] [address] Physician Internal Medicine 02/11/19 Ronit Rahman DO [address] [place], [place] [id number] Physician Cardiology 02/11/19 Kj Rowe MD [address] [place], [place] [address] Physician Pulmonary and Critical Care Medicine 04/29/19 Ronit Rahman DO [address] [place], [place] [id number] Primary Staff Physician Cardiology 01/12/20 Pediatric Critical Care Nurse Relationship Specialty Start Date End Date Julio Arriaga, MECHANICAL FIELD ENGINEER.TOBACCO SAMPLER [address] [place] [phone] PCP - General Internal Medicine 10/18/22 Ismael Kidd (Rn)(Hist), RN Specialty Audiovisual Tech Hematology/Oncology 08/30/17 Quin Nolan DO [address] [place] [address] Hospice Physician Peripheral Vascular 01/26/19 Jennifer Arias MD [address] [place] [address] Physician Internal Medicine 02/11/19 Ronit Rahman DO [address] [place] [address] Physician Cardiology 02/11/19 Kj Rowe MD [address] [place] [address] Physician Pulmonary and Critical Care Medicine 04/29/19 Ronit Rahman DO [address] [place] [address] Primary Staff Physician Cardiology 01/12/20 Pediatric Critical Care Nurse Relationship Specialty Start Date End Date Julio Arriaga, MECHANICAL FIELD ENGINEER.TOBACCO SAMPLER [address] [place] [phone] PCP - General Internal Medicine 10/18/22 Ismael Kidd (Rn)(Hist), RN Specialty Audiovisual Tech Hematology/Oncology 08/30/17 Quin Nolan, DO [address] [place], [place] 104381 Hospice Physician Peripheral Vascular 01/26/19 Jennifer Arias MD 4125 [facility] [address] [place], [place] [address]13 Physician Internal Medicine 02/11/19 Ronit Rahman DO [address] [place] [address] Physician Cardiology 02/11/19 Kj Rowe MD [address] [place], [place] 944251 Physician Pulmonary and Critical Care Medicine 04/29/19 Ronit Rahman DO [address] [place] [address] Primary Staff Physician Cardiology 01/12/20 Pediatric Critical Care Nurse Relationship Specialty Start Date End Date Julio Arriaga, MECHANICAL FIELD ENGINEER.TOBACCO SAMPLER [address] [place] [phone] PCP - General Internal Medicine 10/18/22 Ismael Kidd (Rn)(Hist), RN Specialty Audiovisual Tech Hematology/Oncology 08/30/17 Quin Nolan DO [address] [place], [place] 358191 Hospice Physician Peripheral Vascular 01/26/19 Jennifer Arias MD 4125 [facility] [address] [place], [place] 748083 Physician Internal Medicine 02/11/19 Ronit Rahman DO [address] [place] [address] Physician Cardiology 02/11/19 Kj Rowe MD [address] [place] [address] Physician Pulmonary and Critical Care Medicine 04/29/19 Ronit Rahman DO [address] [place] [address] Primary Staff Physician Cardiology 01/12/20 Pediatric Critical Care Nurse Relationship Specialty Start Date End Date Julio Arriaga, MECHANICAL FIELD ENGINEER.TOBACCO SAMPLER [address] [place] [phone] PCP - General Internal Medicine 10/18/22 Ismael Kidd (Rn)(Hist), RN Specialty Audiovisual Tech Hematology/Oncology 08/30/17 Quin Nolan DO [address] [facility] [place] [address] Hospice Physician Peripheral Vascular 01/26/19 [place] [address] [place] [address] Physician Internal Medicine 02/11/19 Ronit Rahman DO [address] [place] [address] Physician Cardiology 02/11/19 Kj Rowe MD [address] [facility] [place] [address] Physician Pulmonary and Critical Care Medicine 04/29/19 Ronit Rahman DO [address] [place] [address] Primary Staff Physician Cardiology 01/12/20 Pediatric Critical Care Nurse Relationship Specialty Start Date End Date Julio Arriaga, MECHANICAL FIELD ENGINEER.TOBACCO SAMPLER [address] [place] [phone] PCP - General Internal Medicine 10/18/22 Ismael Kidd (Rn)(Hist), RN Specialty Audiovisual Tech Hematology/Oncology 08/30/17 Quin Nolan, DO [address] [place], [place] 019341 Hospice Physician Peripheral Vascular 01/26/19 Jennifer Arias MD [address] [place] [address] Physician Internal Medicine 02/11/19 Ronit Rahman, [address] [place] [address] Physician Cardiology 02/11/19 Kj Rowe MD [address] [place], [place] 195691 Physician Pulmonary and Critical Care Medicine 04/29/19 Ronit Rahman, [address] [place] [address] Primary Staff Physician Cardiology 01/12/20 Pediatric Critical Care Nurse Relationship Specialty Start Date End Date Julio Arriaga, MECHANICAL FIELD ENGINEER.TOBACCO SAMPLER [address] [place] [phone] PCP - General Internal Medicine 10/18/22 Ismael Kidd (Rn)(Hist), RN Specialty Audiovisual Tech Hematology/Oncology 08/30/17 Quin Nolan, DO [address] [place], [place] 731561 Hospice Physician Peripheral Vascular 01/26/19 Jennifer Arias MD [address] [facility] [address] [place], [place] 381893 Physician Internal Medicine 02/11/19 Ronit Rahman DO [address] [place] [address] Physician Cardiology 02/11/19 Kj Rowe MD [address] [place], [place] 905271 Physician Pulmonary and Critical Care Medicine 04/29/19 Ronit Rahman DO [address] [place] [address] Primary Staff Physician Cardiology 01/12/20 Pediatric Critical Care Nurse Relationship Specialty Start Date End Date Selene Pierre MD [address] [place] [address] PCP - General Internal Medicine 06/03/14 10/17/22 Ismael Kidd (Rn)(Hist), RN Specialty Audiovisual Tech Hematology/Oncology 08/30/17 Quin Nolan DO [address] [place] [address] Hospice Physician Peripheral Vascular 01/26/19 Jennifer Arias MD [address] [facility] [address] [place], [place] 580013 Physician Internal Medicine 02/11/19 Ronit Rahman DO [address] [place] [address] Physician Cardiology 02/11/19 Kj Rowe MD [address] [place] [address] Physician Pulmonary and Critical Care Medicine 04/29/19 Ronit Rahman DO [address] [place] [address] Primary Staff Physician Cardiology 01/12/20 Pediatric Critical Care Nurse Relationship Specialty Start Date End Date Selene Pierre MD [address] [place] [address] PCP - General Internal Medicine 06/03/14 10/17/22 Ismael Kidd (Rn)(Hist), RN Specialty Audiovisual Tech Hematology/Oncology 08/30/17 Quin Nolan DO [address] [place] [address] Hospice Physician Peripheral Vascular 01/26/19 Jennifer Arias MD [address] [address] Physician Internal Medicine 02/11/19 Rnoit Rahman DO [address] [place] [address] Physician Cardiology 02/11/19 Kj Rowe MD [address] [place] [address] Physician Pulmonary and Critical Care Medicine 04/29/19 Ronit Rahman DO [address] [place] [address] Primary Staff Physician Cardiology 01/12/20 Pediatric Critical Care Nurse Relationship Specialty Start Date End Date Julio Arriaga, MECHANICAL FIELD ENGINEER.TOBACCO SAMPLER [address] [place] [phone] PCP - General Internal Medicine 10/18/22 Ismael Kidd (Rn)(Hist), RN Specialty Audiovisual Tech Hematology/Oncology 08/30/17 Quin Nolan DO [address] [place] [address] Hospice Physician Peripheral Vascular 01/26/19 Jennifer Arias MD [address] [place] [address] Physician Internal Medicine 02/11/19 Ronit Rahman DO [address] [place] [address] Physician Cardiology 02/11/19 Kj Rowe MD [address] [place] [address] Physician Pulmonary and Critical Care Medicine 04/29/19 Ronit Rahman DO [address] [place], [place] [id number] Primary Staff Physician Cardiology 01/12/20 Team Status: Inactive Member Role Status Dates Julio Arriaga NP, STATISTICAL MACHINE MECHANIC-C Referring Provider Active Dr. Andrez Pitts DO Attending Provider Active Team Status: Inactive Member Role Status Dates Dr. Michael Rawls DO Attending Provider Active Team Status: Inactive Member Role Status Dates Julio Arriaga NP, STATISTICAL MACHINE MECHANIC-C Primary Care Provider Active Dr. Andrez Pitts DO Attending Provider, Referring Provider Active Pediatric Critical Care Nurse Relationship Specialty Start Date End Date Julio Arriaga, MECHANICAL FIELD ENGINEER.TOBACCO SAMPLER [address] [place] [phone] PCP - General Internal Medicine 10/18/22 Ismael Kidd (Rn)(Hist), RN Specialty Audiovisual Tech Hematology/Oncology 08/30/17 Quin Nolan DO [address] [place], [place] 800031 Hospice Physician Peripheral Vascular 01/26/19 Jennifer Arias MD 4125 [facility] [address] [place], [place] 726713 Physician Internal Medicine 02/11/19 Ronit Rahman DO [address] [place], [place] 82290256 Physician Cardiology 02/11/19 Kj Rowe MD [address] [place], [place] 735141 Physician Pulmonary and Critical Care Medicine 04/29/19 Ronit Rahman DO [address] [place] [address] Primary Staff Physician Cardiology 01/12/20 Pediatric Critical Care Nurse Relationship Specialty Start Date End Date Julio Arriaga, MECHANICAL FIELD ENGINEER.TOBACCO SAMPLER [address] [place] [address]-1568 PCP - General Internal Medicine 10/18/22 Ismael Kidd (Rn)(Hist), RN Specialty Audiovisual Tech Hematology/Oncology 08/30/17 Quin Nolan DO [address] [place], [place] 711371 Hospice Physician Peripheral Vascular 01/26/19 Jennifer Arias MD [address] [facility] [address] [place] [address] Physician Internal Medicine 02/11/19 Ronit Rahman DO [address] [place] [address] Physician Cardiology 02/11/19 Kj Rowe MD [address] [place] [address] Physician Pulmonary and Critical Care Medicine 04/29/19 Ronit Rahman DO [address] [place] [address] Primary Staff Physician Cardiology 01/12/20 Pediatric Critical Care Nurse Relationship Specialty Start Date End Date Julio Arriaga, MECHANICAL FIELD ENGINEER.[facility] [address] [place] [phone] PCP - General Internal Medicine 10/18/22 Ismael Kidd (Rn)(Hist), RN Specialty Audiovisual Tech Hematology/Oncology 08/30/17 Quin Nolan DO [address] [place] [place], [place] 503501 Hospice Physician Peripheral Vascular 01/26/19 Jennifer Arias MD [address] [address] Physician Internal Medicine 02/11/19 Ronit Rahman DO [address] [place] [address] Physician Cardiology 02/11/19 Kj Rowe MD [address] [place] [address] Physician Pulmonary and Critical Care Medicine 04/29/19 Ronit Rahman DO [address] [place] [address] Primary Staff Physician Cardiology 01/12/20 Pediatric Critical Care Nurse Relationship Specialty Start Date End Date Julio Arriaga, MECHANICAL FIELD ENGINEER.TOBACCO SAMPLER [address] [place] [phone] PCP - General Internal Medicine 10/18/22 Ismael Kidd (Rn)(Hist), RN Specialty Audiovisual Tech Hematology/Oncology 08/30/17 Quin Nolan DO [address] [place] [address] Hospice Physician Peripheral Vascular 01/26/19 [place] [address] [place] [address] Physician Internal Medicine 02/11/19 Ronit Rahman DO [address] [place] [address] Physician Cardiology 02/11/19 Kj Rowe MD [address] [place], [place] 964191 Physician Pulmonary and Critical Care Medicine 04/29/19 Ronit Rahman DO [address] [place], [place] 44029256 Primary Staff Physician Cardiology 01/12/20 Team Status: Inactive Member Role Status Dates Julio Arriaga STATISTICAL MACHINE MECHANIC, STATISTICAL MACHINE MECHANIC-C Primary Care Provider Active Dr. Pawel Cason MD Emergency Provider Active Pediatric Critical Care Nurse Relationship Specialty Start Date End Date Julio Arriaga, MECHANICAL FIELD ENGINEER.TOBACCO SAMPLER [address] [place] [phone] PCP - General Internal Medicine 10/18/22 Ismael Kidd (Rn)(Hist), RN Specialty Audiovisual Tech Hematology/Oncology 08/30/17 Quin Nolan DO [address] [place], [place] 668461 Hospice Physician Peripheral Vascular 01/26/19 Jennifer Arias MD 4125 [facility] [address] [place], [place] 880363 Physician Internal Medicine 02/11/19 Ronit Rahman DO [address] [place], [place] 42404256 Physician Cardiology 02/11/19 Kj Rowe MD [address] [place], [place] 124101 Physician Pulmonary and Critical Care Medicine 04/29/19 Ronit Rahman DO [address] [place] [address] Primary Staff Physician Cardiology 01/12/20 Pediatric Critical Care Nurse Relationship Specialty Start Date End Date Julio Arriaga, MECHANICAL FIELD ENGINEER.TOBACCO SAMPLER [address] [place] [phone] PCP - General Internal Medicine 10/18/22 Ismael Kidd (Rn)(Hist), RN Specialty Audiovisual Tech Hematology/Oncology 08/30/17 Quin Nolan DO [address] [place], [place] 650651 Hospice Physician Peripheral Vascular 01/26/19 Jennifer Arias MD [address] [facility] [address] [place] [address] Physician Internal Medicine 02/11/19 Ronit Rahman DO [address] [place] [address] Physician Cardiology 02/11/19 Kj Rowe MD [address] [place] [address] Physician Pulmonary and Critical Care Medicine 04/29/19 Ronit Rahman DO [address] [place] [address] Primary Staff Physician Cardiology 01/12/20 Pediatric Critical Care Nurse Relationship Specialty Start Date End Date Julio Arriaga, MECHANICAL FIELD ENGINEER.[facility] [address] [place] [phone] PCP - General Internal Medicine 10/18/22 Ismael Kidd (Rn)(Hist), RN Specialty Audiovisual Tech Hematology/Oncology 08/30/17 Quin Nolan DO [address] [place], [place] 901411 Hospice Physician Peripheral Vascular 01/26/19 Jennifer Arias MD [address] [address] Physician Internal Medicine 02/11/19 Ronit Rahman DO [address] [place] [address] Physician Cardiology 02/11/19 Kj Rowe MD [address] [place] [address] Physician Pulmonary and Critical Care Medicine 04/29/19 Ronit Rahman DO [address] [place] [address] Primary Staff Physician Cardiology 01/12/20 Andrez Pitts DO [address] [facility] [address] [place], [place] 797961 Gastroenterology 11/21/23 Pediatric Critical Care Nurse Relationship Specialty Start Date End Date Julio Arriaga, MECHANICAL FIELD ENGINEER.TOBACCO SAMPLER [address] [place] [phone] PCP - General Internal Medicine 10/18/22 Ismael Kidd (Rn)(Hist), RN Specialty Audiovisual Tech Hematology/Oncology 08/30/17 Quin Nolan DO [address] [place] [address] Hospice Physician Peripheral Vascular 01/26/19 Jennifer Arias MD 4125 [facility] [address] [place] [address] Physician Internal Medicine 02/11/19 Ronit Rahman DO [address] [place], [place] 75324256 Physician Cardiology 02/11/19 Kj Rowe MD [address] [facility] [address] Physician Pulmonary and Critical Care Medicine 04/29/19 Ronit Rahman DO [address] [place] [address] Primary Staff Physician Cardiology 01/12/20 Andrez Pitts DO [address] [facility] [address] [place], [place] 358451 Gastroenterology 11/21/23 Pediatric Critical Care Nurse Relationship Specialty Start Date End Date Julio Arriaga, MECHANICAL FIELD ENGINEER.TOBACCO SAMPLER [address] [place] [phone] PCP - General Internal Medicine 10/18/22 Ismael Kidd (Rn)(Hist), RN Specialty Audiovisual Tech Hematology/Oncology 08/30/17 Quin Nolan DO [address] [place] [address] Hospice Physician Peripheral Vascular 01/26/19 Jennifer Arias MD [address] [address] Physician Internal Medicine 02/11/19 Ronit Rahman DO [address] [place], [place] 82263256 Physician Cardiology 02/11/19 Kj Rowe MD [address] [place] [address] Physician Pulmonary and Critical Care Medicine 04/29/19 Ronit Rahman DO [address] [place] [address] Primary Staff Physician Cardiology 01/12/20 Andrez Pitts DO [address] 860511 Gastroenterology 11/21/23 Pediatric Critical Care Nurse Relationship Specialty Start Date End Date Julio Arriaga, MECHANICAL FIELD ENGINEER.TOBACCO SAMPLER [address] [place] [phone] PCP - General Internal Medicine 10/18/22 Ismael Kidd (Rn)(Hist), RN Specialty Audiovisual Tech Hematology/Oncology 08/30/17 Quin Nolan, DO [address] [place], [place] 507281 Hospice Physician Peripheral Vascular 01/26/19 [place] [address] [place] [address] Physician Internal Medicine 02/11/19 Ronit Rahman DO [address] [place], [place] 26843256 Physician Cardiology 02/11/19 Kj Rowe MD [address] [place], [place] 06706691 Physician Pulmonary and Critical Care Medicine 04/29/19 Ronit Rahman DO [address] [place] [address] Primary Staff Physician Cardiology 01/12/20 [place] [address] [place] [address] 597321 Gastroenterology 11/21/23 Pediatric Critical Care Nurse Relationship Specialty Start Date End Date Julio Arriaga, MECHANICAL FIELD ENGINEER.TOBACCO SAMPLER [address] [place] [phone] PCP - General Internal Medicine 10/18/22 Ismael Kidd (Rn)(Hist), RN Specialty Audiovisual Tech Hematology/Oncology 08/30/17 Quin Nolan, DO [address] [facility] [place] [phone] Hospice Physician Peripheral Vascular 01/26/19 Jennifer Arias MD [address] [place] [address] [place], [place] 7[address]293 Physician Internal Medicine 02/11/19 Ronit Rahman DO [address] [place], [place] 10128256 Physician Cardiology 02/11/19 Kj Rowe MD [address] [place], [place] 686351 Physician Pulmonary and Critical Care Medicine 04/29/19 Ronit Rahman DO [address] [place] [address] Primary Staff Physician Cardiology 01/12/20 Andrez Pitts DO 1761 [facility] [address] [place], [place] 9[address]841 Gastroenterology 11/21/23 Pediatric Critical Care Nurse Relationship Specialty Start Date End Date Julio Arriaga, MECHANICAL FIELD ENGINEER.TOBACCO SAMPLER [address] [place] [phone] PCP - General Internal Medicine 10/18/22 Ismael Kidd (Rn)(Hist), RN Specialty Audiovisual Tech Hematology/Oncology 08/30/17 Quin Nolan DO [address] [place], [place] 275311 Hospice Physician Peripheral Vascular 01/26/19 Jennifer Arias MD [address] [facility] [address] [place] [address] Physician Internal Medicine 02/11/19 Ronit Rahman DO [address] [place] [address] Physician Cardiology 02/11/19 Kj Rowe MD [address] [place], [place] 368851 Physician Pulmonary and Critical Care Medicine 04/29/19 Ronit Rahman DO [address] [place] [address] Primary Staff Physician Cardiology 01/12/20 Andrez Pitts DO [address] 429[address] Gastroenterology 11/21/23 Pediatric Critical Care Nurse Relationship Specialty Start Date End Date Selene Pierre MD [address] [place] [address] PCP - General Internal Medicine 06/03/14 10/17/22 Ismael Kidd (Rn)(Hist), RN Specialty Audiovisual Tech Hematology/Oncology 08/30/17 Quin Nolan DO [address] [place], [place] 60108691 Hospice Physician Peripheral Vascular 01/26/19 Jennifer Arias MD [address] [address] Physician Internal Medicine 02/11/19 Ronit Rahman DO [address] [place] [address] Physician Cardiology 02/11/19 Kj Rowe MD [address] [place] [address] Physician Pulmonary and Critical Care Medicine 04/29/19 Ronit Rahman DO [address] [place] [address] Primary Staff Physician Cardiology 01/12/20 Pediatric Critical Care Nurse Relationship Specialty Start Date End Date Julio Arriaga, MECHANICAL FIELD ENGINEER.TOBACCO SAMPLER [address] [place] [phone] PCP - General Internal Medicine 10/18/22 Ismael Kidd (Rn)(Hist), RN Specialty Audiovisual Tech Hematology/Oncology 08/30/17 Quin Nolan DO [address] [place] [address] Hospice Physician Peripheral Vascular 01/26/19 Jennifer Arias MD [address] [address] Physician Internal Medicine 02/11/19 Ronit Rahman DO [address] [place] [address] Physician Cardiology 02/11/19 Kj Rowe MD [address] [place], [place] 550221 Physician Pulmonary and Critical Care Medicine 04/29/19 Ronit Rahman DO [address] [place] [address] Primary Staff Physician Cardiology 01/12/20 Andrez Pitts DO [address] [facility] [address] [place] [address] Gastroenterology 11/21/23 Pediatric Critical Care Nurse Relationship Specialty Start Date End Date Julio Arriaga, MECHANICAL FIELD ENGINEER.TOBACCO SAMPLER [address] [place] [address]-1568 PCP - General Internal Medicine 10/18/22 Ismael Kidd (Rn)(Hist), RN Specialty Audiovisual Tech Hematology/Oncology 08/30/17 Quin Nolan DO [address] [place] [address] Hospice Physician Peripheral Vascular 01/26/19 Jennifer Arias MD [facility] [address] [address] Physician Internal Medicine 02/11/19 Ronit Rahman DO [address] [place], [place] 10275256 Physician Cardiology 02/11/19 Kj Rowe MD [address] [place] [place] 185141 Physician Pulmonary and Critical Care Medicine 04/29/19 Ronit Rahman DO [address] [place], [place] [phone] Primary Staff Physician Cardiology 01/12/20 Andrez Pitts DO [address] 757[address] Gastroenterology 11/21/23 Pediatric Critical Care Nurse Relationship Specialty Start Date End Date Julio Arriaga, MECHANICAL FIELD ENGINEER.[facility] [address] [place] [phone] PCP - General Internal Medicine 10/18/22 Ismael Kidd (Rn)(Hist), RN Specialty Audiovisual Tech Hematology/Oncology 08/30/17 Quin Nolan, DO [address] [place], [place] 503271 Hospice Physician Peripheral Vascular 01/26/19 Jennifer Arias MD 4125 [facility] [address] [place] [address] Physician Internal Medicine 02/11/19 Ronit Rahman DO [address] [place] [address] Physician Cardiology 02/11/19 Kj Rowe MD [address] [place], [place] 474051 Physician Pulmonary and Critical Care Medicine 04/29/19 Ronit Rahman DO [address] [place] [address] Primary Staff Physician Cardiology 01/12/20 Andrez Pitts DO 1761 [facility] [address] [place], [place] [phone] Gastroenterology 11/21/23 Pediatric Critical Care Nurse Relationship Specialty Start Date End Date Julio Arriaga, MECHANICAL FIELD ENGINEER.TOBACCO SAMPLER [address] [place] [phone] PCP - General Internal Medicine 10/18/22 Ismael Kidd (Rn)(Hist), RN Specialty Audiovisual Tech Hematology/Oncology 08/30/17 Quin Nolan, DO [address] [place], [place] 0818[address] Hospice Physician Peripheral Vascular 01/26/19 Jennifer Arias MD 4125 [facility] [address] [place] [address] Physician Internal Medicine 02/11/19 Ronit Rahman DO [address] [place] [address] Physician Cardiology 02/11/19 Kj Rowe MD [address] [place] [place], [place] 942251 Physician Pulmonary and Critical Care Medicine 04/29/19 Ronit Rahman DO [address] [place] [address] Primary Staff Physician Cardiology 01/12/20 Andrez Pitts DO [address] [facility] [address] [place], [place] [phone] Gastroenterology 11/21/23 Pediatric Critical Care Nurse Relationship Specialty Start Date End Date Julio Arriaga, MECHANICAL FIELD ENGINEER.TOBACCO SAMPLER [address] [place] [address] PCP - General Internal Medicine 10/18/22 Ismael Kidd (Rn)(Hist), RN Specialty Audiovisual Tech Hematology/Oncology 08/30/17 Quin Nolan DO [address] [facility] [place] 418151 Hospice Physician Peripheral Vascular 01/26/19 Jennifer Arias MD 4125 [facility] [address] [place], [place] 534493 Physician Internal Medicine 02/11/19 Ronit Rahman DO [address] [place] [address] Physician Cardiology 02/11/19 Kj Rowe MD [address] [place], [place] 014821 Physician Pulmonary and Critical Care Medicine 04/29/19 Ronit Rahman DO [address] [place] [address] Primary Staff Physician Cardiology 01/12/20 Andrez Pitts, DO [address] [facility] [address] [place], [place] 304561 Gastroenterology 11/21/23 Pediatric Critical Care Nurse Relationship Specialty Start Date End Date Julio Arriaga, MECHANICAL FIELD ENGINEER.TOBACCO SAMPLER [address] [place] [phone] PCP - General Internal Medicine 10/18/22 Ismael Kidd (Rn)(Hist), RN Specialty Audiovisual Tech Hematology/Oncology 08/30/17 Quin Nolan, DO [address] [place] [address] Hospice Physician Peripheral Vascular 01/26/19 Jennifer Arias MD [address] [address] Physician Internal Medicine 02/11/19 Ronit Rahman DO [address] [place] [address] Physician Cardiology 02/11/19 Kj Rowe MD [address] [place] [address] Physician Pulmonary and Critical Care Medicine 04/29/19 Ronit Rahman DO [address] [place] [address] Primary Staff Physician Cardiology 01/12/20 Andrez Pitts DO [address]61 [facility] [address] [address] Gastroenterology 11/21/23 Pediatric Critical Care Nurse Relationship Specialty Start Date End Date Julio Arriaga, MECHANICAL FIELD ENGINEER.TOBACCO SAMPLER [address] [place] [address]15[address] PCP - General Internal Medicine 10/18/22 Ismael Kidd (Rn)(Hist), RN Specialty Audiovisual Tech Hematology/Oncology 08/30/17 Quin Nolan DO [address] [place] [address] Hospice Physician Peripheral Vascular 01/26/19 Jennifer Arias MD [address] [address] Physician Internal Medicine 02/11/19 Ronit Rahman DO [address] [place] [address] Physician Cardiology 02/11/19 Kj Rowe MD [address] [place] [address] Physician Pulmonary and Critical Care Medicine 04/29/19 Ronit Rahman DO [address] [place] [address] Primary Staff Physician Cardiology 01/12/20 Andrez Pitts DO 1761 [facility] [address] [place], [place] 664551 Gastroenterology 11/21/23 Pediatric Critical Care Nurse Relationship Specialty Start Date End Date Julio Arriaga, MECHANICAL FIELD ENGINEER.TOBACCO SAMPLER [address] [facility] [place] [phone] PCP - General Internal Medicine 10/18/22 Ismael Kidd (Rn)(Hist), RN Specialty Audiovisual Tech Hematology/Oncology 08/30/17 Quin Nolan DO [address] [place], [place] [address] Hospice Physician Peripheral Vascular 01/26/19 Jennifer Arias MD 4125 [facility] [address] [place] [address] Physician Internal Medicine 02/11/19 Ronit Rahman DO [address], [place] [id number] Physician Cardiology 02/11/19 Kj Rowe MD [address] [place] [address] Physician Pulmonary and Critical Care Medicine 04/29/19 Ronit Rahman DO [address], [place] [id number] Primary Staff Physician Cardiology 01/12/20 Andrez Pitts DO [address] [id number] Gastroenterology 11/21/23 Pediatric Critical Care Nurse Relationship Specialty Start Date End Date Julio Arriaga, MECHANICAL FIELD ENGINEER.TOBACCO SAMPLER [address] [place] [phone] PCP - General Internal Medicine 10/18/22 Ismael Kidd (Rn)(Hist), RN Specialty Audiovisual Tech Hematology/Oncology 08/30/17 Quin Nolan, DO [address] [place], [place] 264641 Hospice Physician Peripheral Vascular 01/26/19 Jennifer Arias MD [address] [address] Physician Internal Medicine 02/11/19 Ronit Rahman DO [address] [place], [place] [id number] Physician Cardiology 02/11/19 Kj Rowe MD [address] [facility] [place] [place] [id number] Physician Pulmonary and Critical Care Medicine 04/29/19 Ronit Rahman DO [address] [place], [place] [phone] Primary Staff Physician Cardiology 01/12/20 Andrez Pitts DO 1761 [facility] [address] [address] Gastroenterology 11/21/23 Pediatric Critical Care Nurse Relationship Specialty Start Date End Date Julio Arriaga, MECHANICAL FIELD ENGINEER.TOBACCO SAMPLER [address] [place] [phone] PCP - General Internal Medicine 10/18/22 Ismael Kidd (Rn)(Hist), RN Specialty Audiovisual Tech Hematology/Oncology 08/30/17 Quin Nolan, DO [address] [facility] [place] [phone] Hospice Physician Peripheral Vascular 01/26/19 Jennifer Arias MD [address] [place] [address] [place], [place] 885463 Physician Internal Medicine 02/11/19 Ronit Rahman DO [address] [place], [place] [id number] Physician Cardiology 02/11/19 Kj Rowe MD [address] [facility] [place] [place] [address]71 Physician Pulmonary and Critical Care Medicine 04/29/19 Ronit Rahman DO [address] [place] [address] Primary Staff Physician Cardiology 01/12/20 Andrez Pitts DO 1761 [facility] [address] [place], [place] 9[address]681 Gastroenterology 11/21/23 Pediatric Critical Care Nurse Relationship Specialty Start Date End Date Julio Arriaga, MECHANICAL FIELD ENGINEER.TOBACCO SAMPLER [address]61 [place] [phone] PCP - General Internal Medicine 10/18/22 Ismael Kidd (Rn)(Hist), RN Specialty Audiovisual Tech Hematology/Oncology 08/30/17 Quin Nolan DO [address] [place], [place] [phone] Hospice Physician Peripheral Vascular 01/26/19 Jennifer Arias MD [address] [place] [address] [place], [place] 221013 Physician Internal Medicine 02/11/19 Ronit Rahman DO [address] [place] [address] Physician Cardiology 02/11/19 Kj Rowe MD [address] [place] [address] Physician Pulmonary and Critical Care Medicine 04/29/19 Ronit Rahman DO [address] [place] [address] Primary Staff Physician Cardiology 01/12/20 Andrez Pitts DO [address] 983721 Gastroenterology 11/21/23 Pediatric Critical Care Nurse Relationship Specialty Start Date End Date Julio Arriaga, MECHANICAL FIELD ENGINEER.TOBACCO SAMPLER [address]61 [place] [phone] PCP - General Internal Medicine 10/18/22 Ismael Kidd (Rn)(Hist), RN Specialty Audiovisual Tech Hematology/Oncology 08/30/17 Quin Nolan DO [address] [facility] [place] [address] Hospice Physician Peripheral Vascular 01/26/19 Jennifer Arias MD [address] [address] Physician Internal Medicine 02/11/19 Ronit Rahman DO [address] [place] [address] Physician Cardiology 02/11/19 Kj Rowe MD [address] [place], [place] 980631 Physician Pulmonary and Critical Care Medicine 04/29/19 Ronit Rahman DO [address] [place], [place] [phone] Primary Staff Physician Cardiology 01/12/20 Andrez Pitts DO [address] [phone] Gastroenterology 11/21/23 Pediatric Critical Care Nurse Relationship Specialty Start Date End Date Julio Arriaga, MECHANICAL FIELD ENGINEER.TOBACCO SAMPLER [address]61 [place] [phone] PCP - General Internal Medicine 10/18/22 Ismael Kidd (Rn)(Hist), RN Specialty Audiovisual Tech Hematology/Oncology 08/30/17 Quin Nolan DO [address] [place] [address] Hospice Physician Peripheral Vascular 01/26/19 Jennifer Arias MD [address] [address] Physician Internal Medicine 02/11/19 Ronit Rahman DO [address] [place] [address] Physician Cardiology 02/11/19 09/15/24 Kj Rowe MD [address] [place] [address] Physician Pulmonary and Critical Care Medicine 04/29/19 09/15/24 Ronit Rahman DO [address] [place] [address] Primary Staff Physician Cardiology 01/12/20 09/15/24 Andrez Pitts DO [address] [facility] [address] [place], [place] [address] Gastroenterology 11/21/23 Kenya Garcia MD [address] [place] [address] General Surgery 09/15/24 Sidney Joya MD [address] [place], [place] 511[address] Radiation Oncology 09/16/24 Fredi Jones MD 1261 [facility] [address] [place], [place] [id number] Cardiology 09/16/24 Sarah Pearson PA-C [address] [place], [place] 292860 Rheumatology 09/16/24 Pediatric Critical Care Nurse Relationship Specialty Start Date End Date Julio Arriaga, MECHANICAL FIELD ENGINEER.[facility] 1261 [place] [phone] PCP - General Internal Medicine 10/18/22 Ismael Kidd (Rn)(Hist), RN Specialty Audiovisual Tech Hematology/Oncology 08/30/17 Quin Nolan DO [address] [place], [place] [phone] Hospice Physician Peripheral Vascular 01/26/19 Jennifer Arias MD [address] [facility] [address] [place], [place] 733553 Physician Internal Medicine 02/11/19 Ronit Rahman DO [address] [place] [address] Physician Cardiology 02/11/19 09/15/24 Kj Rowe MD [address] [place] [address] Physician Pulmonary and Critical Care Medicine 04/29/19 09/15/24 Ronit Rahman DO [address] [place] [address] Primary Staff Physician Cardiology 01/12/20 09/15/24 Andrez Pitts DO [address] [facility] [address] [place] [address] Gastroenterology 11/21/23 Kenya Garcia MD [address] [place] [address] General Surgery 09/15/24 Pediatric Critical Care Nurse Relationship Specialty Start Date End Date Julio Arriaga, MECHANICAL FIELD ENGINEER.[facility] 1261 [place] [address] PCP - General Internal Medicine 10/18/22 Ismael Kidd (Rn)(Hist), RN Specialty Audiovisual Tech Hematology/Oncology 08/30/17 Quin Nolan DO [address] [address] Hospice Physician Peripheral Vascular 01/26/19 Jennifer Arias MD 4125 [facility] [address] [place] [address] Physician Internal Medicine 02/11/19 Andrez Pitts DO [address] [facility] [address] [place] [address] Gastroenterology 11/21/23 Kenya Garcia MD [address] [place] [address] General Surgery 09/15/24 Sidney Joya MD [address] [place], [place] 682271 Radiation Oncology 09/16/24 Fredi Jones MD 1261 [facility] [address] [place], [place] 06[address] Cardiology 09/16/24 Sarah Pearson PA-C 1365 [place], [place] [phone] Rheumatology 09/16/24 Pediatric Critical Care Nurse Relationship Specialty Start Date End Date Julio Arriaga, MECHANICAL FIELD ENGINEER.TOBACCO SAMPLER 1261 [place] [address] PCP - General Internal Medicine 10/18/22 Ismael Kidd (Rn)(Hist), RN Specialty Audiovisual Tech Hematology/Oncology 08/30/17 Quin Nolan DO [address] [place], [place] [phone] Hospice Physician Peripheral Vascular 01/26/19 Jennifer Arias MD 4125 [facility] [address] [place], [place] 76[address]73 Physician Internal Medicine 02/11/19 Andrez Pitts DO [address] [facility] [address] [place], [place] 709811 Gastroenterology 11/21/23 Kenya Garcia MD [address] [place], [place] 159481 General Surgery 09/15/24 Sidney Joya MD [address] [place], [place] 846501 Radiation Oncology 09/16/24 [address] [facility] [place] [address] [place], [place] 088464 Cardiology 09/16/24 Sarah Pearosn PA-C 1365 [place], [place] 587450 Rheumatology 09/16/24 Pediatric Critical Care Nurse Relationship Specialty Start Date End Date Julio Arriaga, MECHANICAL FIELD ENGINEER.TOBACCO SAMPLER 1261 [place] [address]68 PCP - General Internal Medicine 10/18/22 Ismael Kidd (Rn)(Hist), RN Specialty Audiovisual Tech Hematology/Oncology 08/30/17 Quin Nolan DO [address] [place], [place] [phone] Hospice Physician Peripheral Vascular 01/26/19 Jennifer Arias MD [address] [facility] [address] [place], [place] 558693 Physician Internal Medicine 02/11/19 Andrez Pitts DO [address] [place] [address] [place], [place] 878971 Gastroenterology 11/21/23 Kenya Garcia MD [address]61 [place] [address] General Surgery 09/15/24 Sidney Joya MD [address] [place] [address] Radiation Oncology 09/16/24 Fredi Jones MD 1261 [facility] [address] [place] [address] Cardiology 09/16/24 Sarah Pearson, LIZZIE 1365 [place], [place] 647680 Rheumatology 09/16/24 Raul Hendrix LISW [address] [place] [address] Tar And Ammonia Pump Operator Hematology/Oncology 09/18/24 Pediatric Critical Care Nurse Relationship Specialty Start Date End Date Julio Arriaga, MECHANICAL FIELD ENGINEER.TOBACCO SAMPLER 1261 [place] [phone] PCP - General Internal Medicine 10/18/22 Ismael Kidd (Rn)(Hist), RN Specialty Audiovisual Tech Hematology/Oncology 08/30/17 Quin Nolan DO [address] [place] [address] Hospice Physician Peripheral Vascular 01/26/19 Jennifer Arias MD 4125 [facility] [address] [place], [place] 704843 Physician Internal Medicine 02/11/19 Andrez Pitts DO [address] [facility] [address] [place], [place] 767921 Gastroenterology 11/21/23 Kenya Garcia MD [address] [place] [address] General Surgery 09/15/24 Sidney Joya MD [address] [place] [address] Radiation Oncology 09/16/24 Fredi Jones MD 1261 [facility] [address] [place] [address] Cardiology 09/16/24 Sarah Pearson, PAMadayC 1365 [place], [place] 621210 Rheumatology 09/16/24 Raul Hendrix LISW 721 [place] [address] Tar And Ammonia Pump Operator Hematology/Oncology 09/18/24 Pediatric Critical Care Nurse Relationship Specialty Start Date End Date Julio Arriaga, MECHANICAL FIELD ENGINEER.TOBACCO SAMPLER 1261 [place] [phone] PCP - General Internal Medicine 10/18/22 Ismael Kidd (Rn)(Hist), RN Specialty Audiovisual Tech Hematology/Oncology 08/30/17 Quin Nolan DO [address] [place], [place] 08[address]81 Hospice Physician Peripheral Vascular 01/26/19 Jennifer Arias MD 4125 [facility] [address] [place], [place] 929313 Physician Internal Medicine 02/11/19 Andrez Pitts DO [address] [facility] [address] [place], [place] 469221 Gastroenterology 11/21/23 Kenya Garcia MD [address] [place] [address] General Surgery 09/15/24 Sidney Joya MD [address] [place] [address] Radiation Oncology 09/16/24 Fredi Jones MD 1261 [facility] [address] [place] [address] Cardiology 09/16/24 Sarah Pearson PA-C 1365 [place], [place] 711840 Rheumatology 09/16/24 Pediatric Critical Care Nurse Relationship Specialty Start Date End Date Julio Arriaga, MECHANICAL FIELD ENGINEER.TOBACCO SAMPLER 1261 [place] [address] PCP - General Internal Medicine 10/18/22 Ismael Kidd (Rn)(Hist), RN Specialty Audiovisual Tech Hematology/Oncology 08/30/17 Quin Nolan DO [address] [place] [address] Hospice Physician Peripheral Vascular 01/26/19 Jennifer Arias MD [address] [place] [facility] [address] [place], [place] 860823 Physician Internal Medicine 02/11/19 Andrez Pitts DO [address] [facility] [address] [place] [address] Gastroenterology 11/21/23 Kenya Garcia MD 1761 [place] [address] General Surgery 09/15/24 Sidney Joya MD [address] [place] [address] Radiation Oncology 09/16/24 Fredi Jones MD 1261 [facility] [address] [place], [place] 974484 Cardiology 09/16/24 Sarah Pearson, PAMadayC 1365 [place], [place] [phone] Rheumatology 09/16/24 Raul Hendrix LISW [address] [place] [address] Tar And Ammonia Pump Operator Hematology/Oncology 09/18/24 Pediatric Critical Care Nurse Relationship Specialty Start Date End Date Julio Arriaga, MECHANICAL FIELD ENGINEER.TOBACCO SAMPLER [address]61 [place] [address]1568 PCP - General Internal Medicine 10/18/22 Ismael Kidd (Rn)(Hist), RN Specialty Audiovisual Tech Hematology/Oncology 08/30/17 Quin Nolan DO [address] [place], [place] 287251 Hospice Physician Peripheral Vascular 01/26/19 Jennifer Arias MD [address] [facility] [address] [place], [place] 235903 Physician Internal Medicine 02/11/19 Andrez Pitts DO [address] [place] [address] [place] [address] Gastroenterology 11/21/23 Kenya Garcia MD [address] [place] [address] General Surgery 09/15/24 Sidney Joya MD [address] [place] [address] Radiation Oncology 09/16/24 Fredi Jones MD 1261 [facility] [address] [place], [place] 867564 Cardiology 09/16/24 Sarah Pearson PA-C [address] [place], [place] [phone] Rheumatology 09/16/24 Raul Hendrix LISW [address] [place] [address] Tar And Ammonia Pump Operator Hematology/Oncology 09/18/24 Josh Bennett DO [address] [place], [place] 397851 Hematology/Oncology 09/25/24 Roxanne Bland RN Specialty Audiovisual Tech Oncology 09/25/24 Pediatric Critical Care Nurse Relationship Specialty Start Date End Date Julio Arriaga, MECHANICAL FIELD ENGINEER.TOBACCO SAMPLER 1261 [place] [phone] PCP - General Internal Medicine 10/18/22 Ismael Kidd (Rn)(Hist), RN Specialty Audiovisual Tech Hematology/Oncology 08/30/17 Quin Nolan DO [address] [place], [place] 88410691 Hospice Physician Peripheral Vascular 01/26/19 Jennifer Arias MD [address] [place] [facility] [address] [place], [place] 398503 Physician Internal Medicine 02/11/19 Andrez Pitts DO [address] [facility] [address] [place], [place] 442791 Gastroenterology 11/21/23 Kenya Garcia MD [address] [place] [address] General Surgery 09/15/24 Sidney Joya MD [address] [place] [address] Radiation Oncology 09/16/24 Fredi Jones MD 1261 [facility] [address] [place] [address] Cardiology 09/16/24 Sarah Pearson PA-C 1365 [place] [address] Rheumatology 09/16/24 Raul Hendrix LISW 721 [place] [address] Tar And Ammonia Pump Operator Hematology/Oncology 09/18/24 Josh Bennett DO [address] [place], [place] 988801 Hematology/Oncology 09/25/24 Roxanne Bland RN Specialty Audiovisual Tech Oncology 09/25/24 Pediatric Critical Care Nurse Relationship Specialty Start Date End Date Julio Arriaga, MECHANICAL FIELD ENGINEER.TOBACCO SAMPLER 1261 [place] [address]1568 PCP - General Internal Medicine 10/18/22 Ismael Kidd (Rn)(Hist), RN Specialty Audiovisual Tech Hematology/Oncology 08/30/17 Quin Nolan DO [address] [place], [place] 929381 Hospice Physician Peripheral Vascular 01/26/19 Jennifer Arias MD [address] [facility] 209 [place] [address] Physician Internal Medicine 02/11/19 Andrez Pitts DO [address] [facility] [address] [place], [place] [address]11 Gastroenterology 11/21/23 Kenya Garcia MD [address] [place] [address] General Surgery 09/15/24 Sidney Joya MD [address] [place], [place] 622721 Radiation Oncology 09/16/24 Fredi Jones MD 1261 [facility] [address] [place], [place] 00554654 Cardiology 09/16/24 Sarah Pearson PA-C 1365 [place], [place] 716290 Rheumatology 09/16/24 Raul Hendrix LISW [address] [place] [address] Tar And Ammonia Pump Operator Hematology/Oncology 09/18/24 Josh Bennett DO [address] [place], [place] 92650691 Hematology/Oncology 09/25/24 Roxanne Bland RN Specialty Audiovisual Tech Oncology 09/25/24 Pediatric Critical Care Nurse Relationship Specialty Start Date End Date Julio Arriaga, MECHANICAL FIELD ENGINEER.TOBACCO SAMPLER [address] [place] [phone] PCP - General Internal Medicine 10/18/22 Ismael Kidd (Rn)(Hist), RN Specialty Audiovisual Tech Hematology/Oncology 08/30/17 Quin Nolan DO [address] [place] [address] Hospice Physician Peripheral Vascular 01/26/19 Jennifer Arias MD [address] [place] [facility] [address] [place], [place] 893503 Physician Internal Medicine 02/11/19 Andrez Pitts DO 1761 [facility] [address] [place], [place] 942681 Gastroenterology 11/21/23 Kenya Garcia MD [address] [place] [address] General Surgery 09/15/24 Sidney Joya MD [address] [place] [address] Radiation Oncology 09/16/24 Fredi Jones MD 1261 [facility] [address] [place], [place] 676254 Cardiology 09/16/24 Sarah Pearson PA-C [address] [place], [place] 53512240 Rheumatology 09/16/24 Raul Hendrix LISW [address] [place] [address] Tar And Ammonia Pump Operator Hematology/Oncology 09/18/24 Josh Bennett DO [address] [place] [address] Hematology/Oncology 09/25/24 Roxanne Bland, RN Specialty Audiovisual Tech Oncology 09/25/24 Pediatric Critical Care Nurse Relationship Specialty Start Date End Date Julio Arriaga, MECHANICAL FIELD ENGINEER.TOBACCO SAMPLER [address] [place] [phone] PCP - General Internal Medicine 10/18/22 Ismael Kidd (Rn)(Hist), RN Specialty Audiovisual Tech Hematology/Oncology 08/30/17 Quin Nolan DO [address] [place], [place] 032151 Hospice Physician Peripheral Vascular 01/26/19 Jennifer Arias MD 4125 [facility] [address] [place], [place] 284553 Physician Internal Medicine 02/11/19 Andrez Pitts DO [address] [facility] [address] [place] [address] Gastroenterology 11/21/23 Kenya Garcia MD [address] [place] [address] General Surgery 09/15/24 Sidney Joya MD [address] [place] [address] Radiation Oncology 09/16/24 Fredi Jones MD 1261 [facility] 110 [place] [address] Cardiology 09/16/24 Sarah Pearson PA-C [address] [place], [place] 282080 Rheumatology 09/16/24 Raul Hendrix LISW [address] [place] [address] Tar And Ammonia Pump Operator Hematology/Oncology 09/18/24 Josh Bennett DO [address] [place] [address] Hematology/Oncology 09/25/24 Roxanne Bland RN Specialty Audiovisual Tech Oncology 09/25/24 Pediatric Critical Care Nurse Relationship Specialty Start Date End Date Julio Arriaga, MECHANICAL FIELD ENGINEER.TOBACCO SAMPLER 1261 [place] [phone] PCP - General Internal Medicine 10/18/22 Ismael Kidd (Rn)(Hist), RN Specialty Audiovisual Tech Hematology/Oncology 08/30/17 Quin Nolan DO [address] [place], [place] 380571 Hospice Physician Peripheral Vascular 01/26/19 Jennifer Arias MD [address] [place] [address] Physician Internal Medicine 02/11/19 Andrez Pitts DO [address] 731711 Gastroenterology 11/21/23 Kenya Garcia MD [address] [place] [address] General Surgery 09/15/24 Sidney Joya MD [address] [place] [address] Radiation Oncology 09/16/24 Fredi Jones MD 1261 [facility] [address] [place] [address] Cardiology 09/16/24 Sarah Pearson PA-C 1365 [place] [address] Rheumatology 09/16/24 Raul Hendrix LISW 721 [place] [address] Tar And Ammonia Pump Operator Hematology/Oncology 09/18/24 Josh Bennett DO [address] [place] [address] Hematology/Oncology 09/25/24 Roxanne Bland RN Specialty Audiovisual Tech Oncology 09/25/24 Pediatric Critical Care Nurse Relationship Specialty Start Date End Date Julio Arriaga, MECHANICAL FIELD ENGINEER.TOBACCO SAMPLER 1261 [place] [phone] PCP - General Internal Medicine 10/18/22 Ismael Kidd (Rn)(Hist), RN Specialty Audiovisual Tech Hematology/Oncology 08/30/17 Quin Nolan DO [address] [place], [place] 368511 Hospice Physician Peripheral Vascular 01/26/19 Jennifer Arias MD [address] [place] [facility] [address] [place] [address] Physician Internal Medicine 02/11/19 Andrez Pitts DO [address] [facility] [address] [place], [place] 879631 Gastroenterology 11/21/23 Kenya Garcia MD [address] [place], [place] 136011 General Surgery 09/15/24 Sidney Joya MD [address] [facility], [place] 903101 Radiation Oncology 09/16/24 Fredi Jones MD 1261 [facility] [address] [place], [place] 6[address]314 Cardiology 09/16/24 Sarah Pearson PA-C 1365 [place], [place] [id number] Rheumatology 09/16/24 Raul Hendrix LISW [address] [place] [address] Tar And Ammonia Pump Operator Hematology/Oncology 09/18/24 Josh Benentt DO [address] [place] [address] Hematology/Oncology 09/25/24 Roxanne Bland, LÓPEZ Specialty Audiovisual Tech Oncology 09/25/24 Pediatric Critical Care Nurse Relationship Specialty Start Date End Date Julio Arriaga, MECHANICAL FIELD ENGINEER.TOBACCO SAMPLER 1261 [place] [phone] PCP - General Internal Medicine 10/18/22 Ismael Kidd (Rn)(Hist), RN Specialty Audiovisual Tech Hematology/Oncology 08/30/17 Quin Nolan DO [address] [place], [place] 06318691 Hospice Physician Peripheral Vascular 01/26/19 Jennifer Arias MD [address] [facility] 209 [place], [place] [address]693 Physician Internal Medicine 02/11/19 Andrez Pitts DO [address] [facility] [address] [place] [address] Gastroenterology 11/21/23 Kenya Garcia MD [address] [place] [address] General Surgery 09/15/24 Sidney Joya MD [address] [place] [address] Radiation Oncology 09/16/24 Fredi Jones MD 1261 [facility] [address] [place] [address] Cardiology 09/16/24 Sarah Pearson PA-C 1365 [place] [address] Rheumatology 09/16/24 Raul Hendrix LISW [address]21 [place] [address] Tar And Ammonia Pump Operator Hematology/Oncology 09/18/24 Josh Bennett DO [address] [place] [address] Hematology/Oncology 09/25/24 Roxanne Bland RN Specialty Audiovisual Tech Oncology 09/25/24 Pediatric Critical Care Nurse Relationship Specialty Start Date End Date Julio Arriaga, MECHANICAL FIELD ENGINEER.TOBACCO SAMPLER 1261 [place] [phone] PCP - General Internal Medicine 10/18/22 Ismael Kidd (Rn)(Hist), RN Specialty Audiovisual Tech Hematology/Oncology 08/30/17 Quin Nolan DO [address] [place], [place] [phone] Hospice Physician Peripheral Vascular 01/26/19 Jennifer Arias MD [address] [facility] [address] [place], [place] 576413 Physician Internal Medicine 02/11/19 Andrez Pitts DO 1761 [facility] [address] [place], [place] 355611 Gastroenterology 11/21/23 Kenya Garcia MD 1761 [facility] [place] [address] General Surgery 09/15/24 Sidney Joya MD 721 E [facility] [place], [place] 232031 Radiation Oncology 09/16/24 Fredi Jones MD 1261 [facility] 110 [place], [place] 601804 Cardiology 09/16/24 Sarah Pearson PA-C 1365 [place], [place] 676890 Rheumatology 09/16/24 Raul Hendrix LISW [address] [place] [address] Tar And Ammonia Pump Operator Hematology/Oncology 09/18/24 Josh Bennett DO [address] [place], [place] 657951 Hematology/Oncology 09/25/24 Roxanne Bland, LÓPEZ Specialty Audiovisual Tech Oncology 09/25/24 Pediatric Critical Care Nurse Relationship Specialty Start Date End Date Julio Arriaga, MECHANICAL FIELD ENGINEER.TOBACCO SAMPLER [address] [place] [phone] PCP - General Internal Medicine 10/18/22 Ismael Kidd (Rn)(Hist), RN Specialty Audiovisual Tech Hematology/Oncology 08/30/17 Quin Nolan DO [address] [place] [address] Hospice Physician Peripheral Vascular 01/26/19 Jennifer Arias MD [address] [facility] 209 [place], [place] 899853 Physician Internal Medicine 02/11/19 Andrez Pitts DO [address] [facility] [address] [place], [place] [address] Gastroenterology 11/21/23 Kenya Garcia MD [address] [place] [address] General Surgery 09/15/24 Sidney Joya MD [address] [place] [address] Radiation Oncology 09/16/24 Fredi Jones MD [address] [facility] [facility] [address] [place], [place] [address]74 Cardiology 09/16/24 Sarah Pearson, PARowan [address] [place], [place] [address] Rheumatology 09/16/24 Raul Hendrix LISW [address] [place] [address] Tar And Ammonia Pump Operator Hematology/Oncology 09/18/24 Josh Bennett DO [address] [place] [address] Hematology/Oncology 09/25/24 Roxanne Bland, LÓPEZ Specialty Audiovisual Tech Oncology 09/25/24 Pediatric Critical Care Nurse Relationship Specialty Start Date End Date Julio Arriaga, MECHANICAL FIELD ENGINEER.TOBACCO SAMPLER [address] [place] [address] PCP - General Internal Medicine 10/18/22 Ismael Kidd (Rn)(Hist), RN Specialty Audiovisual Tech Hematology/Oncology 08/30/17 Quin Nolan DO [address] [place], [place] [address] Hospice Physician Peripheral Vascular 01/26/19 Jennifer Arias MD [address] [place], [place] [address]173 Physician Internal Medicine 02/11/19 Andrez Pitts DO [address] [facility] [address] [place] [address] Gastroenterology 11/21/23 Kenya Garcia MD [address] [place] [address] General Surgery 09/15/24 Sidney Joya MD [address] [place] [address] Radiation Oncology 09/16/24 Fredi Jones MD [address] [place] [address] [place], [place] [address]684 Cardiology 09/16/24 Sarah Pearson PA-C [address] [place], [place] [address]230 Rheumatology 09/16/24 Raul Hendrix LISW [address] [place] [address] Tar And Ammonia Pump Operator Hematology/Oncology 09/18/24 Josh Bennett DO [address] [place] [address] Hematology/Oncology 09/25/24 Roxanne Bland RN Specialty Audiovisual Tech Oncology 09/25/24 Pediatric Critical Care Nurse Relationship Specialty Start Date End Date Julio Arriaga, MECHANICAL FIELD ENGINEER.TOBACCO SAMPLER [address] [place] [phone] PCP - General Internal Medicine 10/18/22 Ismael Kidd (Rn)(Hist), RN Specialty Audiovisual Tech Hematology/Oncology 08/30/17 Quin Nolan DO [address] [place] [address] Hospice Physician Peripheral Vascular 01/26/19 Jennifer Arias MD [address] [place] [address] [place], [place] [address]403 Physician Internal Medicine 02/11/19 Andrez Pitts DO [address] [place] [address] [place] [address] Gastroenterology 11/21/23 Kenya Garcia MD [address] [place] [address] General Surgery 09/15/24 Sidney Joya MD [address] [place] [address] Radiation Oncology 09/16/24 Fredi Jones MD [address] [place] [address] [place] [address] Cardiology 09/16/24 Sarah Pearson PA-C [address] [place], [place] 674050 Rheumatology 09/16/24 Raul Hendrix LISW [address] [place] [address] Tar And Ammonia Pump Operator Hematology/Oncology 09/18/24 Josh Bennett DO [address] [place] [place], [place] [address] Hematology/Oncology 09/25/24 Roxanne Bland RN Specialty Audiovisual Tech Oncology 09/25/24 Pediatric Critical Care Nurse Relationship Specialty Start Date End Date Julio Arriaga, MECHANICAL FIELD ENGINEER.TOBACCO SAMPLER 1261 [place] [phone] PCP - General Internal Medicine 10/18/22 Ismael Kidd (Rn)(Hist), RN Specialty Audiovisual Tech Hematology/Oncology 08/30/17 Quin Nolan DO [address] [place], [place] [address] Hospice Physician Peripheral Vascular 01/26/19 Jennifer Arias MD [address] 3[address] Physician Internal Medicine 02/11/19 Andrez Pitts DO [address] [place], [place] [id number] Gastroenterology 11/21/23 Kenya Garcia MD [address] [place] [address] General Surgery 09/15/24 Sidney Joya MD [address] [place], [place] 85[address] Radiation Oncology 09/16/24 Fredi Jones MD [address] [facility] 110 [place] [address] Cardiology 09/16/24 Sarah Pearson PA-C [address] [place], [place] 306890 Rheumatology 09/16/24 Raul Hendrix LISW [address] [place] [address] Tar And Ammonia Pump Operator Hematology/Oncology 09/18/24 Josh Bennett DO [address] [place], [place] 644341 Hematology/Oncology 09/25/24 Roxanne Bland RN Specialty Audiovisual Tech Oncology 09/25/24 Pediatric Critical Care Nurse Relationship Specialty Start Date End Date Julio Arriaga, MECHANICAL FIELD ENGINEER.TOBACCO SAMPLER 1261 [place] [phone] PCP - General Internal Medicine 10/18/22 Ismael Kidd (Rn)(Hist), RN Specialty Audiovisual Tech Hematology/Oncology 08/30/17 Quin Nolan DO [address] [place] [address] Hospice Physician Peripheral Vascular 01/26/19 Jennifer Arias MD [address] [facility] 209 [place], [place] [address]83 Physician Internal Medicine 02/11/19 Andrez Pitts DO [address] [facility] [address] [place] [address] Gastroenterology 11/21/23 Kenya Garcia MD [address] [place] [address] General Surgery 09/15/24 Sidney Joya MD [address] [place] [address] Radiation Oncology 09/16/24 Fredi Jones MD 1261 [facility] 110 [place], [place] 107644 Cardiology 09/16/24 Sarah Pearson PA-C 1365 [place], [place] 56[address]60 Rheumatology 09/16/24 Raul Hendrix LISW 721 [place] [address] Tar And Ammonia Pump Operator Hematology/Oncology 09/18/24 Josh Bennett DO [address] [place] [address] Hematology/Oncology 09/25/24 Roxanne Bland RN Specialty Audiovisual Tech Oncology 09/25/24 Pediatric Critical Care Nurse Relationship Specialty Start Date End Date Julio Arriaga, MECHANICAL FIELD ENGINEER.TOBACCO SAMPLER 1261 [place] [address] PCP - General Internal Medicine 10/18/22 Ismael Kidd (Rn)(Hist), RN Specialty Audiovisual Tech Hematology/Oncology 08/30/17 Quin Nolan DO [address] [place], [place] [address] Hospice Physician Peripheral Vascular 01/26/19 Jennifer Arias MD [address] [facility] [address] [place], [place] [address]173 Physician Internal Medicine 02/11/19 Andrez Pitts DO [address] [facility] [address] [place], [place] [address]181 Gastroenterology 11/21/23 Kenya Garcia MD [address] [place] [address] General Surgery 09/15/24 Sidney Joya MD [address] [facility] [place] [address] Radiation Oncology 09/16/24 Fredi Jones MD 1261 [facility] 110 [place], [place] 03[address]74 Cardiology 09/16/24 Sarah Pearson, PAMadayC 136[address] [place], [place] 37[address]20 Rheumatology 09/16/24 Raul Hendrix LISW [address] [place] [address] Tar And Ammonia Pump Operator Hematology/Oncology 09/18/24 Josh Bennett DO [address] [facility] [place] [address] Hematology/Oncology 09/25/24 Roxanne Bland, LÓPEZ Specialty Audiovisual Tech Oncology 09/25/24 Pediatric Critical Care Nurse Relationship Specialty Start Date End Date Julio Arriaga, MECHANICAL FIELD ENGINEER.TOBACCO SAMPLER [address] [place] [address] PCP - General Internal Medicine 10/18/22 Ismael Kidd (Rn)(Hist), RN Specialty Audiovisual Tech Hematology/Oncology 08/30/17 Quin Nolan DO [address] [place], [place] 34[address] Hospice Physician Peripheral Vascular 01/26/19 Jennifer Arias MD 4125 [facility] [address] [place], [place] [address] Physician Internal Medicine 02/11/19 Andrez Pitts DO [address] [facility] [address] [place], [place] 322911 Gastroenterology 11/21/23 Kenya Garcia MD [address] [place] [address] General Surgery 09/15/24 Sidney Joya MD [address] [place], [place] 29[address] Radiation Oncology 09/16/24 Fredi Jones MD [address] [facility] 110 [place], [place] [address]74 Cardiology 09/16/24 Sarah Pearson PA-C 136[address] [place], [place] 657510 Rheumatology 09/16/24 Raul Hendrix LISW [address] [place] [address] Tar And Ammonia Pump Operator Hematology/Oncology 09/18/24 Josh Bennett DO [address] [place] [address] Hematology/Oncology 09/25/24 Doup, Roxanne, RN Specialty Audiovisual Tech Oncology 09/25/24 Pediatric Critical Care Nurse Relationship Specialty Start Date End Date Julio Arriaga, MECHANICAL FIELD ENGINEER.TOBACCO SAMPLER [address] [place] [phone] PCP - General Internal Medicine 10/18/22 Ismael Kidd (Rn)(Hist), RN Specialty Audiovisual Tech Hematology/Oncology 08/30/17 Quin Nolan DO [address] [facility] [place], [place] [address] Hospice Physician Peripheral Vascular 01/26/19 Jennifer Arias MD 4125 [facility] [address] [place], [place] [address] Physician Internal Medicine 02/11/19 Andrez Pitts DO 17[address] [facility] [address] [place] [address] Gastroenterology 11/21/23 Kenya Garcia MD [address] [place], [place] 112271 General Surgery 09/15/24 Sidney Joya MD [address] [place], [place] [address] Radiation Oncology 09/16/24 Fredi Jones MD [address] [facility] [address] [place], [place] 195504 Cardiology 09/16/24 Sarah Pearson PA-C [address] [place], [place] 7[address]240 Rheumatology 09/16/24 Raul Hendrix LISW [address] [place] [address] Tar And Ammonia Pump Operator Hematology/Oncology 09/18/24 Josh Bennett DO [address] [place] [address] Hematology/Oncology 09/25/24 Roxanne Bland, LÓPEZ Specialty Audiovisual Tech Oncology 09/25/24 Pediatric Critical Care Nurse Relationship Specialty Start Date End Date Julio Arriaga, MECHANICAL FIELD ENGINEER.TOBACCO SAMPLER [address] [place] [address] PCP - General Internal Medicine 10/18/22 Ismael Kidd (Rn)(Hist), RN Specialty Audiovisual Tech Hematology/Oncology 08/30/17 Quin Nolan DO [address] [place], [place] [address] Hospice Physician Peripheral Vascular 01/26/19 Jennifer Arias MD [address] [facility] [address] [place] [address] Physician Internal Medicine 02/11/19 Andrez Pitts DO [address] [facility] [address] [place] [address] Gastroenterology 11/21/23 Kenya Garcia MD [address] [place] [address] General Surgery 09/15/24 Sidney Joya MD [address] [place], [place] 7286[address] Radiation Oncology 09/16/24 Fredi Jones MD 1261 [facility] 110 [place] [address] Cardiology 09/16/24 Saarh Pearson PA-C [address] [place], [place] [address] Rheumatology 09/16/24 Raul Hendrix LISW [address] [place] [address] Tar And Ammonia Pump Operator Hematology/Oncology 09/18/24 Josh Bennett DO [address] [address] Hematology/Oncology 09/25/24 Roxanne Bland, LÓPEZ Specialty Audiovisual Tech Oncology 09/25/24 Pediatric Critical Care Nurse Relationship Specialty Start Date End Date Julio Arriaga, MECHANICAL FIELD ENGINEER.TOBACCO SAMPLER [address] [place] [phone] PCP - General Internal Medicine 10/18/22 Ismael Kidd (Rn)(Hist), RN Specialty Audiovisual Tech Hematology/Oncology 08/30/17 Quin Nolan DO [address] [place], [place] [address] Hospice Physician Peripheral Vascular 01/26/19 Jennifer Arias MD [address] [facility] [address] [place], [place] [address] Physician Internal Medicine 02/11/19 Andrez Pitts DO [address] [place], [place] [address] Gastroenterology 11/21/23 Kenya Garcia MD [address] [place] [address] General Surgery 09/15/24 Sidney Joya MD [address] [place] [address] Radiation Oncology 09/16/24 Fredi Jones MD 1261 [facility] 110 [place] [address] Cardiology 09/16/24 Sarah Pearson PA-C [address] [place], [place] [address] Rheumatology 09/16/24 Raul Hendrix LISW 721 [place] [address] Tar And Ammonia Pump Operator Hematology/Oncology 09/18/24 Josh Bennett DO [address] [facility] [place] [address] Hematology/Oncology 09/25/24 Roxanne Bland RN Specialty Audiovisual Tech Oncology 09/25/24 Pediatric Critical Care Nurse Relationship Specialty Start Date End Date Julio Arriaga, MECHANICAL FIELD ENGINEER.TOBACCO SAMPLER 1261 [place] [phone] PCP - General Internal Medicine 10/18/22 Ismael Kidd (Rn)(Hist), RN Specialty Audiovisual Tech Hematology/Oncology 08/30/17 Quin Nolan DO [address] [place], [place] [address] Hospice Physician Peripheral Vascular 01/26/19 Jennifer Arias MD [address] [facility] [address] [place], [place] [address] Physician Internal Medicine 02/11/19 Andrez Pitts DO [address] [place] [address] [place], [place] [address] Gastroenterology 11/21/23 Kenya Garcia MD [address] [place] [address] General Surgery 09/15/24 Sidney Joya MD [address] [place] [address] Radiation Oncology 09/16/24 Fredi Jones MD [address] [facility] 110 [place] [address] Cardiology 09/16/24 Sarah Pearson PA-C 1365 [place] [address] Rheumatology 09/16/24 Raul Hendrix LISW [address] [place] [address] Tar And Ammonia Pump Operator Hematology/Oncology 09/18/24 Josh Bennett DO [address] [place] [address] Hematology/Oncology 09/25/24 Roxanne Bland, LÓPEZ Specialty Audiovisual Tech Oncology 09/25/24 Team Status: Active Member Role Status Dates Julio Arriaga NP, STATISTICAL MACHINE MECHANIC-C Primary Care Provider Active Team Status: Inactive Member Role Status Dates Julio Arriaga NP, STATISTICAL MACHINE MECHANIC-C Primary Care Provider Active Start: August 27, 2024 End: August 27, 2024 Julio Arriaga NP, STATISTICAL MACHINE MECHANIC-C Referring Provider Active Start: August 27, 2024 End: August 27, 2024 Dr. Andrez Pitts DO Attending Provider Active Start: August 27, 2024 End: August 27, 2024 Team Status: Inactive Member Role Status Dates Julio Arriaga NP, STATISTICAL MACHINE MECHANIC-C Primary Care Provider Active Start: September 02, 2024 End: September 03, 2024 Dr. Sonia Germain DO Emergency Provider Active Start: September 02, 2024 End: September 03, 2024 Dr. Kenya Garcia MD Admit Provider Active St art: September 02, 2024 End: September 03, 2024 Dr. Kenya Garcia MD Attending Provider Active Start: September 02, 2024 End: September 03, 2024 Team Status: Active Member Role Status Dates Julio Arriaga NP, STATISTICAL MACHINE MECHANIC-C Primary Care Provider Active Start: September 02, 2024 Dr. Sonia Germain DO Emergency Provider Active Start: September 02, 2024 Dr. eKnya Garcia MD Attending Provider Active Start: September 02, 2024 Dr. Kenya Garcia MD Other Provider Active St art: September 02, 2024 Team Status: Active Member Role Status Dates Julio Arriaga NP, STATISTICAL MACHINE MECHANIC-C Primary Care Provider Active Start: September 03, 2024 Dr. Sonia Germain DO Emergency Provider Active Start: September 03, 2024 Dr. Kenya Garcia MD Admit Provider Active St art: September 03, 2024 Dr. Kenya Garcia MD Attending Provider Active Start: September 03, 2024 Dr. Kenya Garcia MD Other Provider Active St art: September 03, 2024 Team Status: Inactive Member Role Status Dates Julio Arriaga NP, STATISTICAL MACHINE MECHANIC-C Primary Care Provider Active Start: September 15, 2024 End: September 15, 2024 Julio Arriaga NP, STATISTICAL MACHINE MECHANIC-C Referring Provider Active Start: September 15, 2024 End: September 15, 2024 Dr. Kenya Garcia MD Attending Provider Active Start: September 15, 2024 End: September 15, 2024 Team Status: Inactive Member Role Status Dates Julio Arriaga NP, STATISTICAL MACHINE MECHANIC-C Primary Care Provider Active Start: September 24, 2024 End: September 25, 2024 Dr. Pawel Cason MD Attending Provider Active Sta rt: September 24, 2024 End: September 25, 2024 Dr. Pawel Cason MD Referring Provider Active Sta rt: September 24, 2024 End: September 25, 2024 Dr. Pawel Cason MD Emergency Provider Active Sta rt: September 24, 2024 End: September 25, 2024 Team Status: Inactive Member Role Status Dates Julio Arriaga NP, STATISTICAL MACHINE MECHANIC-C Primary Care Provider Active Start: October 02, 2024 End: October 02, 2024 Dr. Josh Bennett DO Attending Provider Active St art: October 02, 2024 End: October 02, 2024 Dr. Josh Bennett DO Referring Provider Active St art: October 02, 2024 End: October 02, 2024 Team Status: Active Member Role Status Dates Julio Arriaga STATISTICAL MACHINE MECHANIC, STATISTICAL MACHINE MECHANIC-C Primary Care Provider Active Start: October 19, 2024 Dr. Josh Bennett DO Attending Provider Active St art: October 19, 2024 Dr. Josh Bennett DO Referring Provider Active St art: October 19, 2024 Team Status: Active Member Role Status Dates Julio Arriaga STATISTICAL MACHINE MECHANIC, STATISTICAL MACHINE MECHANIC-C Primary Care Provider Active Start: October 19, 2024 Dr. Lincoln Richards MD Attending Provider Active S tart: October 19, 2024 Team Status: Inactive Member Role Status Dates Julio Arriaga STATISTICAL MACHINE MECHANIC, STATISTICAL MACHINE MECHANIC-C Primary Care Provider Active Start: October 24, 2024 End: October 25, 2024 Dr. [place] Dow DO Emergency Provider Active Start : October 24, 2024 End: October 25, 2024 Team Status: Inactive Member Role Status Dates Julio Arriaga STATISTICAL MACHINE MECHANIC, STATISTICAL MACHINE MECHANIC-C Primary Care Provider Active Start: October 19, 2024 End: October 19, 2024 Dr. Josh Bennett DO Attending Provider Active St art: October 19, 2024 End: October 19, 2024 Dr. Josh Bennett DO Referring Provider Active St art: October 19, 2024 End: October 19, 2024 Pediatric Critical Care Nurse Relationship Specialty Start Date End Date Julio Arriaga, MECHANICAL FIELD ENGINEER.TOBACCO SAMPLER [address] [place] [address] PCP - General Internal Medicine 10/18/22 Ismael Kidd (Rn)(Hist), RN Specialty Audiovisual Tech Hematology/Oncology 08/30/17 Quin Nolan DO [address] [place], [place] [id number] Hospice Physician Peripheral Vascular 01/26/19 Jennifer Arias MD [address] [id number] Physician Internal Medicine 02/11/19 Andrez Pitts DO [address] [address] Gastroenterology 11/21/23 Kenya Garcia MD [address] [place] [address] General Surgery 09/15/24 Sidney Joya MD [address] [place], [place] [id number] Radiation Oncology 09/16/24 Fredi Jones MD [address] [id number] Cardiology 09/16/24 Sarah Pearson, PARowan 1365 [place], [place] [id number] Rheumatology 09/16/24 Raul Hendrix LISW 721 [place] [address] Tar And Ammonia Pump Operator Hematology/Oncology 09/18/24 Josh Bennett DO [address] [place], [place] 328631 Hematology/Oncology 09/25/24 Roxanne Bland RN Specialty Audiovisual Tech Oncology 09/25/24 Pediatric Critical Care Nurse Relationship Specialty Start Date End Date Julio Arriaga, MECHANICAL FIELD ENGINEER.TOBACCO SAMPLER 1261 [place] [phone] PCP - General Internal Medicine 10/18/22 Ismael Kidd (Rn)(Hist), RN Specialty Audiovisual Tech Hematology/Oncology 08/30/17 Quin Nolan DO [address] [place], [place] [address] Hospice Physician Peripheral Vascular 01/26/19 Jennifer Arias MD 4125 [facility] 209 [place] [address] Physician Internal Medicine 02/11/19 Andrez Pitts DO 1761 [facility] [address] [place], [place] [address] Gastroenterology 11/21/23 Kenya Garcia MD [address] [place] [address] General Surgery 09/15/24 Sidney Joya MD [address] [place], [place] 7[address] Radiation Oncology 09/16/24 Fredi Jones MD [address] [facility] [address] [place], [place] [id number] Cardiology 09/16/24 Sarah Pearson PA-C 136[address] [place], [place] 767080 Rheumatology 09/16/24 Raul Hendrix LISW [address] [place] [address] Tar And Ammonia Pump Operator Hematology/Oncology 09/18/24 Josh Bennett DO [address] [place], [place] [address] Hematology/Oncology 09/25/24 Roxanne Bland RN Specialty Audiovisual Tech Oncology 09/25/24 Pediatric Critical Care Nurse Relationship Specialty Start Date End Date Julio Arriaga, MECHANICAL FIELD ENGINEER.TOBACCO SAMPLER [address] [place] [phone] PCP - General Internal Medicine 10/18/22 Ismael Kidd (Rn)(Hist), RN Specialty Audiovisual Tech Hematology/Oncology 08/30/17 Quin Nolan DO [address] [place], [place] 924031 Hospice Physician Peripheral Vascular 01/26/19 Jennifer Arias MD [address] [facility] [address] [place], [place] [address] Physician Internal Medicine 02/11/19 Andrez Pitts DO [address] [facility] [address] [place] [address] Gastroenterology 11/21/23 Kenya Garcia MD [address] [place] [address] General Surgery 09/15/24 Sidney Joya MD [address] [place] [address] Radiation Oncology 09/16/24 Fredi Jones MD 1261 [facility] 110 [place] [address] Cardiology 09/16/24 Sarah Pearson PA-C [address] [place], [place] [id number] Rheumatology 09/16/24 Raul Hendrix LISW [address] [place] [address] Tar And Ammonia Pump Operator Hematology/Oncology 09/18/24 Josh Bennett DO [address] [place] [address] Hematology/Oncology 09/25/24 Roxanne Bland, RN Specialty Audiovisual Tech Oncology 09/25/24 Pediatric Critical Care Nurse Relationship Specialty Start Date End Date Julio Arriaga, MECHANICAL FIELD ENGINEER.TOBACCO SAMPLER [address] [place] [phone] PCP - General Internal Medicine 10/18/22 Ismael Kidd (Rn)(Hist), RN Specialty Audiovisual Tech Hematology/Oncology 08/30/17 Quin Nolan DO [address] [place] [address] Hospice Physician Peripheral Vascular 01/26/19 Jennifer Arias MD 4125 [facility] [address] [place] [address] Physician Internal Medicine 02/11/19 Andrez Pitts DO [address] [facility] [address] [place] [address] Gastroenterology 11/21/23 Kenya Garcia MD [address] [place] [address] General Surgery 09/15/24 Sidney Joya MD [address] [place] [address] Radiation Oncology 09/16/24 Fredi Jones MD 1261 [facility] 110 [place] [address] Cardiology 09/16/24 Sarah Pearson, PAMadayC [address] [place] [address] Rheumatology 09/16/24 Raul Hendrix LISW [address] [place] [address] Tar And Ammonia Pump Operator Hematology/Oncology 09/18/24 Josh Benentt DO [address] [place] [place], [place] [address] Hematology/Oncology 09/25/24 Roxanne Bland RN Specialty Audiovisual Tech Oncology 09/25/24 Pediatric Critical Care Nurse Relationship Specialty Start Date End Date Julio Arriaga, MECHANICAL FIELD ENGINEER.TOBACCO SAMPLER [address] [place] [phone] PCP - General Internal Medicine 10/18/22 Ismael Kidd (Rn)(Hist), RN Specialty Audiovisual Tech Hematology/Oncology 08/30/17 Quin Nolan DO [address] [place], [place] 944[address] Hospice Physician Peripheral Vascular 01/26/19 Jennifer Arias MD [address] [address] Physician Internal Medicine 02/11/19 Andrez Pitts DO [address] [place] [address] Gastroenterology 11/21/23 Kenya Garcia MD [address]61 [place], [place] 449931 General Surgery 09/15/24 Sidney Joya MD [address] [place], [place] [id number] Radiation Oncology 09/16/24 Fredi Jones MD 1261 [facility] [address] [place] [address] Cardiology 09/16/24 Sarah Pearson PA-C [address] [place] [address] Rheumatology 09/16/24 Raul Hendrix LISW 721 [place] [address] Tar And Ammonia Pump Operator Hematology/Oncology 09/18/24 Josh Bennett DO [address] [place], [place] 358761 Hematology/Oncology 09/25/24 Roxanne Bland RN Specialty Audiovisual Tech Oncology 09/25/24 Pediatric Critical Care Nurse Relationship Specialty Start Date End Date Julio Arriaga, MECHANICAL FIELD ENGINEER.TOBACCO SAMPLER 1261 [place] [address] PCP - General Internal Medicine 10/18/22 Ismael Kidd (Rn)(Hist), RN Specialty Audiovisual Tech Hematology/Oncology 08/30/17 Quin Nolan DO [address] [facility] [place], [place] [address] Hospice Physician Peripheral Vascular 01/26/19 Jennifer Arias MD [address] [facility] 209 [place] [address] Physician Internal Medicine 02/11/19 Andrez Pitts DO [address] [facility] [address] [place] [address] Gastroenterology 11/21/23 Kenya Garcia MD [address] [place] [address] General Surgery 09/15/24 Sidney Joya MD [address] [place] [address] Radiation Oncology 09/16/24 Fredi Jones MD [address] [facility] [address] [place], [place] 416454 Cardiology 09/16/24 Sarah Pearson PARowan 1365 [place] [address] Rheumatology 09/16/24 Raul Hendrix LISW [address] [place] [address] Tar And Ammonia Pump Operator Hematology/Oncology 09/18/24 Josh Bennett DO [address] [place] [address] Hematology/Oncology 09/25/24 Roxanne Bland, LÓPEZ Specialty Audiovisual Tech Oncology 09/25/24 Team Status: Active Member Role Status Dates Julio Arriaga NP, STATISTICAL MACHINE MECHANIC-C Primary Care Provider Active Start: October 19, 2024 Dr. Lincoln Richards MD Attending Provider Active S tart: October 19, 2024 Dr. Josh Bennett DO Referring Provider Active St art: October 19, 2024 Team Status: Inactive Member Role Status Dates Julio Arriaga NP, STATISTICAL MACHINE MECHANIC-C Primary Care Provider Active Start: October 24, 2024 End: October 25, 2024 Dr. Rigoberto Dow DO Attending Provider Active Start : October 24, 2024 End: October 25, 2024 Dr. Rigoberto Dow DO Emergency Provider Active Start : October 24, 2024 End: October 25, 2024 Team Status: Inactive Member Role Status Dates Julio Arriaga NP, STATISTICAL MACHINE MECHANIC-C Primary Care Provider Active Start: October 30, 2024 End: October 30, 2024 Dr. Gaudencio Ambriz DO Emergency Provider Active Start: October 30, 2024 End: October 30, 2024 Pediatric Critical Care Nurse Relationship Specialty Start Date End Date Julio Arriaga, MECHANICAL FIELD ENGINEER.TOBACCO SAMPLER [address] [place] [phone] PCP - General Internal Medicine 10/18/22 Ismael Kidd (Rn)(Hist), RN Specialty Audiovisual Tech Hematology/Oncology 08/30/17 Quin Nolan DO [address] [place], [place] 4[address] Hospice Physician Peripheral Vascular 01/26/19 Jennifer Arias MD [address] [facility] [address] [place], [place] [address] Physician Internal Medicine 02/11/19 Andrez Pitts DO [address] [facility] [address] [place] [address] Gastroenterology 11/21/23 Kenya Garcia MD [address] [place] [address] General Surgery 09/15/24 Sidney Joya MD [address] [facility] [place] [address] Radiation Oncology 09/16/24 Fredi Jones MD 1261 [facility] [address] [place], [place] [id number] Cardiology 09/16/24 Sarah Pearson, JENC [address] [place], [place] [address]200 Rheumatology 09/16/24 Raul Hendrix LISW [address] [place] [address] Tar And Ammonia Pump Operator Hematology/Oncology 09/18/24 Josh Bennett DO [address] [place] [address] Hematology/Oncology 09/25/24 Roxanne Bland RN Specialty Audiovisual Tech Oncology 09/25/24 Pediatric Critical Care Nurse Relationship Specialty Start Date End Date Julio Arriaga, MECHANICAL FIELD ENGINEER.TOBACCO SAMPLER [address] [place] [phone] PCP - General Internal Medicine 10/18/22 Ismael Kidd (Rn)(Hist), RN Specialty Audiovisual Tech Hematology/Oncology 08/30/17 Quin Nolan DO [address] [place], [place] [address] Hospice Physician Peripheral Vascular 01/26/19 Jennifer Arias MD [address] [facility] [address] [place], [place] [address] Physician Internal Medicine 02/11/19 Andrez Pitts DO [address] [address] Gastroenterology 11/21/23 Kenya Garcia MD [address] [place] [address] General Surgery 09/15/24 Sidney Joya MD [address] [place] [address] Radiation Oncology 09/16/24 Fredi Jones MD [address] [facility] [address] [place] [address] Cardiology 09/16/24 Sarah Pearson PA-C [address] [place], [place] 643980 Rheumatology 09/16/24 Raul Hendrix LISW [address]21 [place] [address] Tar And Ammonia Pump Operator Hematology/Oncology 09/18/24 Josh Bennett DO [address] [facility] [place], [place] [address] Hematology/Oncology 09/25/24 Roxanne Bland, LÓPEZ Specialty Audiovisual Tech Oncology 09/25/24 Pediatric Critical Care Nurse Relationship Specialty Start Date End Date Julio Arriaga, MECHANICAL FIELD ENGINEER.TOBACCO SAMPLER [address] [place] [phone] PCP - General Internal Medicine 10/18/22 Ismael Kidd (Rn)(Hist), RN Specialty Audiovisual Tech Hematology/Oncology 08/30/17 Quin Nolan DO [address] [place], [place] 498[address] Hospice Physician Peripheral Vascular 01/26/19 Jennifer Arias MD [address] [address] Physician Internal Medicine 02/11/19 Andrez Pitts DO [address] [place], [place] [address] Gastroenterology 11/21/23 Kenya Garcia MD [address] [place] [address] General Surgery 09/15/24 Sidney Joya MD [address] [place] [address] Radiation Oncology 09/16/24 Fredi Jones MD [address] [facility] [address] [place] [address] Cardiology 09/16/24 Sarah Pearson, PAMadayC [address] [place], [place] 675610 Rheumatology 09/16/24 Raul Hendrix LISW 721 [place] [address] Tar And Ammonia Pump Operator Hematology/Oncology 09/18/24 Josh Bennett DO [address] [place] [address] Hematology/Oncology 09/25/24 Roxanne Bland RN Specialty Audiovisual Tech Oncology 09/25/24 Pediatric Critical Care Nurse Relationship Specialty Start Date End Date Julio Arriaga, MECHANICAL FIELD ENGINEER.TOBACCO SAMPLER 12[address] [place] [phone] PCP - General Internal Medicine 10/18/22 Imsael Kidd (Rn)(Hist), RN Specialty Audiovisual Tech Hematology/Oncology 08/30/17 Quin Nolan DO [address] [place] [place], [place] [phone] Hospice Physician Peripheral Vascular 01/26/19 Jennifer Arias MD [address] [facility] [address] [place], [place] [address] Physician Internal Medicine 02/11/19 Andrez Pitts DO [address] [facility] [address] [place], [place] 763331 Gastroenterology 11/21/23 Kenya Garcia MD [address] [place], [place] 011701 General Surgery 09/15/24 Sidney Joya MD [address] [place] [address] Radiation Oncology 09/16/24 Fredi Jones MD [address] 2766[address] Cardiology 09/16/24 Sarah Pearson, PARowan 1365 [place] [address] Rheumatology 09/16/24 Raul Hendrix LISW 721 [place] [address] Tar And Ammonia Pump Operator Hematology/Oncology 09/18/24 Josh Bennett DO [address] [place] [address] Hematology/Oncology 09/25/24 Roxanne Bland RN Specialty Audiovisual Tech Oncology 09/25/24 Pediatric Critical Care Nurse Relationship Specialty Start Date End Date Julio Arriaga, MECHANICAL FIELD ENGINEER.TOBACCO SAMPLER [address]61 [place] [phone] PCP - General Internal Medicine 10/18/22 Ismael Kidd (Rn)(Hist), RN Specialty Audiovisual Tech Hematology/Oncology 08/30/17 Quin Nolan DO [address] [place] [address] Hospice Physician Peripheral Vascular 01/26/19 Jennifer Arias MD [address] [facility] [address] [place] [address] Physician Internal Medicine 02/11/19 Andrez Pitts DO [address] [facility] [address] [place] [address] Gastroenterology 11/21/23 Kenya Garcia MD [address] [place] [address] General Surgery 09/15/24 Sidney Joya MD [address] [place], [place] 688051 Radiation Oncology 09/16/24 Fredi Jones MD 1261 [facility] 110 [place], [place] [phone] Cardiology 09/16/24 Sarah Pearson, PARowan 136[address] [place], [place] 231360 Rheumatology 09/16/24 Raul Hendrix LISW 721 [place] [address] Tar And Ammonia Pump Operator Hematology/Oncology 09/18/24 Josh Bennett DO [address] [place] [address] Hematology/Oncology 09/25/24 Roxanne Bland RN Specialty Audiovisual Tech Oncology 09/25/24 Pediatric Critical Care Nurse Relationship Specialty Start Date End Date Julio Arriaga, MECHANICAL FIELD ENGINEER.TOBACCO SAMPLER [address] [place] [phone] PCP - General Internal Medicine 10/18/22 Ismael Kidd (Rn)(Hist), RN Specialty Audiovisual Tech Hematology/Oncology 08/30/17 Quin Nolan DO [address] [place], [place] 699181 Hospice Physician Peripheral Vascular 01/26/19 Jennifer Arias MD [address] [facility] [address] [place], [place] [address] Physician Internal Medicine 02/11/19 Andrez Pitts DO [address] [facility] [address] [place], [place] [address] Gastroenterology 11/21/23 Kenya Garcia MD [address] [place] [address] General Surgery 09/15/24 Sidney Joya MD [address] [place] 488[address] Radiation Oncology 09/16/24 Fredi Jones MD [address] [facility] [address] [place], [place] 9[address]384 Cardiology 09/16/24 Sarah Pearson PA-Marga [address] [place], [place] 740560 Rheumatology 09/16/24 Raul Hendrix LISW [address] [place] [address] Tar And Ammonia Pump Operator Hematology/Oncology 09/18/24 Josh Bennett DO [address] [place], [place] [address] Hematology/Oncology 09/25/24 Roxanne Bland RN Specialty Audiovisual Tech Oncology 09/25/24 Pediatric Critical Care Nurse Relationship Specialty Start Date End Date Corina, Julio D, MECHANICAL FIELD ENGINEER.TOBACCO SAMPLER [address] [place] [phone] PCP - General Internal Medicine 10/18/22 Ismael Kidd (Rn)(Hist), RN Specialty Audiovisual Tech Hematology/Oncology 08/30/17 Quin Nolan DO [address] [place] [address] Hospice Physician Peripheral Vascular 01/26/19 Jennifer Arias MD 4125 [facility] [address] [place], [place] 6[address]333 Physician Internal Medicine 02/11/19 Andrez Pitts DO [address] [facility] [address] [place] [address] Gastroenterology 11/21/23 Kenya Garcia MD [address] [place] [address] General Surgery 09/15/24 Sidney Joya MD [address] [place] [address] Radiation Oncology 09/16/24 Fredi Jones MD 1261 [facility] 110 [place], [place] [address]104 Cardiology 09/16/24 Sarah Pearson PA-C [address] [place], [place] 146760 Rheumatology 09/16/24 Raul Hendrix LISW [address] [place] [address] Tar And Ammonia Pump Operator Hematology/Oncology 09/18/24 Josh Bennett DO [address] [place] [address] Hematology/Oncology 09/25/24 Roxanne Bland, LÓPEZ Specialty Audiovisual Tech Oncology 09/25/24 Pediatric Critical Care Nurse Relationship Specialty Start Date End Date Julio Arriaga, MECHANICAL FIELD ENGINEER.TOBACCO SAMPLER [address] [place] [phone] PCP - General Internal Medicine 10/18/22 Ismael Kidd (Rn)(Hist), RN Specialty Audiovisual Tech Hematology/Oncology 08/30/17 Quin Nolan DO [address] [place], [place] [address] Hospice Physician Peripheral Vascular 01/26/19 Jennifer Arias MD [address] [facility] [address] [place], [place] 56[address] Physician Internal Medicine 02/11/19 Andrez Pitts DO [address] [facility] [address] [place] [address] Gastroenterology 11/21/23 Kenya Garcia MD [address] [place] [address] General Surgery 09/15/24 Sidney Joya MD [address] [place] [address] Radiation Oncology 09/16/24 Fredi Jones MD [address] [place] [address] [place] [address] [place] [address] Cardiology 09/16/24 Sarah Pearson PA-C [address] [place] [address] Rheumatology 09/16/24 Raul Hendrix LISW [address] [place] [address] Tar And Ammonia Pump Operator Hematology/Oncology 09/18/24 Josh Bennett DO [address] [place], [place] [address]781 Hematology/Oncology 09/25/24 Roxanne Bland RN Specialty Audiovisual Tech Oncology 09/25/24 Pediatric Critical Care Nurse Relationship Specialty Start Date End Date Julio Arriaga, MECHANICAL FIELD ENGINEER.TOBACCO SAMPLER [address] [place] [phone] PCP - General Internal Medicine 10/18/22 Ismael Kidd (Rn)(Hist), RN Specialty Audiovisual Tech Hematology/Oncology 08/30/17 Quin Nolan DO [address] [place], [place] [phone] Hospice Physician Peripheral Vascular 01/26/19 Jennifer Arias MD [address] [facility] [address] [place], [place] [address]13 Physician Internal Medicine 02/11/19 Andrez Pitts DO [address] [facility] [address] [place], [place] 112351 Gastroenterology 11/21/23 Kenya Garcia MD [address] [place] [address] General Surgery 09/15/24 Sidney Joya MD [address] [place] [address] Radiation Oncology 09/16/24 Fredi Jones MD 1261 [facility] 110 [place], [place] [address]484 Cardiology 09/16/24 Sarah Pearson, LIZZIE [address] [place], [place] 678920 Rheumatology 09/16/24 Raul Hendrix LISW [address] [place] [address] Tar And Ammonia Pump Operator Hematology/Oncology 09/18/24 Josh Bennett DO [address] [place], [place] [address]601 Hematology/Oncology 09/25/24 Roxanne Bland RN Specialty Audiovisual Tech Oncology 09/25/24 Pediatric Critical Care Nurse Relationship Specialty Start Date End Date Julio Arriaga, MECHANICAL FIELD ENGINEER.TOBACCO SAMPLER [address] [place] [phone] PCP - General Internal Medicine 10/18/22 Ismael Kidd (Rn)(Hist), RN Specialty Audiovisual Tech Hematology/Oncology 08/30/17 Quin Nolan DO [address] [facility] [place], [place] [address] Hospice Physician Peripheral Vascular 01/26/19 Jennifer Arias MD [address] [facility] [address] [place], [place] [address]173 Physician Internal Medicine 02/11/19 Andrez Pitts DO [address] [place] [address] [place], [place] [phone] Gastroenterology 11/21/23 Kenya Garcia MD [address] [place] [address] General Surgery 09/15/24 Sidney Joya MD [address] [address] Radiation Oncology 09/16/24 Fredi Jones MD 1261 [facility] 110 [place], [place] 9[address]804 Cardiology 09/16/24 Sarah Pearson, PAMadayC [address] [place], [place] 850760 Rheumatology 09/16/24 Raul Hendrix LISW 721 [place] [address] Tar And Ammonia Pump Operator Hematology/Oncology 09/18/24 Josh Bennett DO [address] [place], [place] 202651 Hematology/Oncology 09/25/24 Roxanne Bland RN Specialty Audiovisual Tech Oncology 09/25/24 Pediatric Critical Care Nurse Relationship Specialty Start Date End Date Julio Arriaga, MECHANICAL FIELD ENGINEER.TOBACCO SAMPLER [address] [place] [phone] PCP - General Internal Medicine 10/18/22 Ismael Kidd (Rn)(Hist), RN Specialty Audiovisual Tech Hematology/Oncology 08/30/17 Quin Nolan DO [address] [place] [place], [place] [address] Hospice Physician Peripheral Vascular 01/26/19 Jennifer Arias MD [address] [facility] [address] [place], [place] 251043 Physician Internal Medicine 02/11/19 Andrez Pitts DO [address] 505961 Gastroenterology 11/21/23 Kenya Garcia MD [address] [place] [address] General Surgery 09/15/24 Sidney Joya MD [address] [place], [place] [address] Radiation Oncology 09/16/24 Fredi Jones MD [address] [address] Cardiology 09/16/24 Sarah Pearson, LIZZIE [address] [place], [place] [address] Rheumatology 09/16/24 Raul Hendrix LISW [address] [place] [address] Tar And Ammonia Pump Operator Hematology/Oncology 09/18/24 Josh Bennett DO [address] [place], [place] 3465[address] Hematology/Oncology 09/25/24 Roxanne Bland RN Specialty Audiovisual Tech Oncology 09/25/24 Pediatric Critical Care Nurse Relationship Specialty Start Date End Date Julio Arriaga, MECHANICAL FIELD ENGINEER.TOBACCO SAMPLER [address] [place] [phone] PCP - General Internal Medicine 10/18/22 Ismael Kidd (Rn)(Hist), RN Specialty Audiovisual Tech Hematology/Oncology 08/30/17 Quin Nolan DO [address] [place], [place] 84[address] Hospice Physician Peripheral Vascular 01/26/19 Jennifer Arias MD [address] [facility] 209 [place] [address] Physician Internal Medicine 02/11/19 Andrez Pitts DO [address] [facility] [address] [place], [place] [address] Gastroenterology 11/21/23 Kenya Garcia MD [address] [place] [address] General Surgery 09/15/24 Sidney Joya MD [address] [place], [place] 755091 Radiation Oncology 09/16/24 Fredi Jones MD 1261 [facility] 110 [place], [place] 7[address]44 Cardiology 09/16/24 Sarah Pearson, LIZZIE [address] [place], [place] 172240 Rheumatology 09/16/24 Raul Hendrix LISW [address] [place] [address] Tar And Ammonia Pump Operator Hematology/Oncology 09/18/24 Josh Bennett DO [address] [place], [place] 007141 Hematology/Oncology 09/25/24 Roxanne Bland RN Specialty Audiovisual Tech Oncology 09/25/24 Pediatric Critical Care Nurse Relationship Specialty Start Date End Date Julio Arriaga, MECHANICAL FIELD ENGINEER.TOBACCO SAMPLER [address] [place] [address] PCP - General Internal Medicine 10/18/22 Ismael Kidd (Rn)(Hist), RN Specialty Audiovisual Tech Hematology/Oncology 08/30/17 Quin Nolan DO [address] [place] [address] Hospice Physician Peripheral Vascular 01/26/19 Jennifer Arias MD [address] [facility] [address] [place], [place] [address] Physician Internal Medicine 02/11/19 Andrez Pitts DO [address] [facility] [facility] [address] [place] [address] Gastroenterology 11/21/23 Kenya Garcia MD [address] [facility] [place] [address] General Surgery 09/15/24 Sidney Joya MD [address] [place] [address] Radiation Oncology 09/16/24 Fredi Jones MD 1261 [facility] 110 [place] [address] Cardiology 09/16/24 Sarah Pearson PA-C [address] [place], [place] [id number] Rheumatology 09/16/24 Raul Hendrix LISW [address] [place] [address] Tar And Ammonia Pump Operator Hematology/Oncology 09/18/24 Josh Bennett DO [address] [place] [address] Hematology/Oncology 09/25/24 Roxanne Bland, RN Specialty Audiovisual Tech Oncology 09/25/24 Pediatric Critical Care Nurse Relationship Specialty Start Date End Date Julio Arriaga, MECHANICAL FIELD ENGINEER.TOBACCO SAMPLER [address] [place] [phone] PCP - General Internal Medicine 10/18/22 Ismael Kidd (Rn)(Hist), RN Specialty Audiovisual Tech Hematology/Oncology 08/30/17 Quin Nolan DO [address] [address] Hospice Physician Peripheral Vascular 01/26/19 Jennifer Arias MD 4125 [facility] [address] [place], [place] 550943 Physician Internal Medicine 02/11/19 Andrez Ptits DO 1761 [facility] RUBA [facility] [address] [place] [address] Gastroenterology 11/21/23 Kenya Garcia MD [address] [facility] [place] [address] General Surgery 09/15/24 Sidney Joya MD [address] [place] [address] Radiation Oncology 09/16/24 Fredi Jones MD 1261 [facility] [address] [place] [address] Cardiology 09/16/24 Sarah Pearson, PA-C [address] [place] [address] Rheumatology 09/16/24 Raul Hendrix LISW [address] [place] [address] Tar And Ammonia Pump Operator Hematology/Oncology 09/18/24 Josh Bennett DO [address] [place], [place] [address]7801 Hematology/Oncology 09/25/24 Roxanne Bland RN Specialty Audiovisual Tech Oncology 09/25/24 Pediatric Critical Care Nurse Relationship Specialty Start Date End Date Julio Arriaga, MECHANICAL FIELD ENGINEER.TOBACCO SAMPLER [address] [place] [phone] PCP - General Internal Medicine 10/18/22 Ismael Kidd (Rn)(Hist), RN Specialty Audiovisual Tech Hematology/Oncology 08/30/17 Quin Nolan DO [address] [place], [place] [address]241 Hospice Physician Peripheral Vascular 01/26/19 Jennifer Arias MD [address] [address] Physician Internal Medicine 02/11/19 Andrez Pitts DO [address] [place] [address] Gastroenterology 11/21/23 Kenya Garcai MD [address] [place] [address] General Surgery 09/15/24 Sidney Joya MD [address] [place] [place], [place] 26724[address] Radiation Oncology 09/16/24 Fredi Jones MD [address] [facility] [address] [place] [address] Cardiology 09/16/24 Sarah Pearson PA-C 1365 [place] [address] Rheumatology 09/16/24 Raul Hendrix LISW 721 [place] [address] Tar And Ammonia Pump Operator Hematology/Oncology 09/18/24 Josh Bennett DO [address] [facility] [place], [place] [phone] Hematology/Oncology 09/25/24 Roxanne Bland RN Specialty Audiovisual Tech Oncology 09/25/24 Team Status: Inactive Member Role Status Dates Julio Arriaga NP, STATISTICAL MACHINE MECHANIC-C Primary Care Provider Active Start: October 30, 2024 End: October 30, 2024 Dr. Gaudencio Ambriz DO Attending Provider Active Start: October 30, 2024 End: October 30, 2024 Dr. Gaudencio Ambriz DO Emergency Provider Active Start: October 30, 2024 End: October 30, 2024 Team Status: Inactive Member Role Status Dates Woo Thapa MD Emergency Provider Active Star t: December 27, 2024 End: December 27, 2024 Julio Arriaga NP, STATISTICAL MACHINE MECHANIC-C Primary Care Provider Active Start: December 27, 2024 End: December 27, 2024 Pediatric Critical Care Nurse Relationship Specialty Start Date End Date Julio Arriaga, MECHANICAL FIELD ENGINEER.TOBACCO SAMPLER [address]61 [place] [phone] PCP - General Internal Medicine 10/18/22 Ismael Kidd (Rn)(Hist), RN Specialty Audiovisual Tech Hematology/Oncology 08/30/17 Quin Nolan DO [address] [place], [place] 680[address] Hospice Physician Peripheral Vascular 01/26/19 Jennifer Arias MD [address] [facility] [address] [place], [place] 413703 Physician Internal Medicine 02/11/19 Andrez Pitts DO 1761 [facility] [address] [place], [place] [address] Gastroenterology 11/21/23 Kenya Garcia MD [address] [facility] [place] [address] General Surgery 09/15/24 Sidney Joya MD [address] [facility] [address] Radiation Oncology 09/16/24 Fredi Jones MD 1261 [facility] 110 [place], [place] 7[address]154 Cardiology 09/16/24 Sarah Pearson, JENC 1365 [place], [place] 459150 Rheumatology 09/16/24 Raul Hendrix LISW 721 [place] [address] Tar And Ammonia Pump Operator Hematology/Oncology 09/18/24 Josh Bennett DO [address] [place] [address] Hematology/Oncology 09/25/24 Roxanne Bland RN Specialty Audiovisual Tech Oncology 09/25/24 Pediatric Critical Care Nurse Relationship Specialty Start Date End Date Julio Arriaga, MECHANICAL FIELD ENGINEER.TOBACCO SAMPLER [address] [place] [phone] PCP - General Internal Medicine 10/18/22 Ismael Kidd (Rn)(Hist), RN Specialty Audiovisual Tech Hematology/Oncology 08/30/17 Quin Nolan DO [address] [place] [address] Hospice Physician Peripheral Vascular 01/26/19 Jennifer Arias MD [address] [facility] 209 [place], [place] [address]233 Physician Internal Medicine 02/11/19 Andrez Pitts DO [address] [facility] [address] [place], [place] 447661 Gastroenterology 11/21/23 Kenya Garcia MD [address] [place] [address] General Surgery 09/15/24 Sidney Joya MD [address] [place] [address] Radiation Oncology 09/16/24 Fredi Jones MD [address] [facility] [address] [place], [place] 84[address]24 Cardiology 09/16/24 Sarah Pearson PA-C [address] [place] [address] Rheumatology 09/16/24 Raul Hendrix LISW [address] [place] [address] Tar And Ammonia Pump Operator Hematology/Oncology 09/18/24 Josh Bennett DO [address] [place], [place] 648491 Hematology/Oncology 09/25/24 Roxanne Bland RN Specialty Audiovisual Tech Oncology 09/25/24 Team Status: Inactive Member Role Status Dates Woo Thapa MD Attending Provider Active Star t: December 27, 2024 End: December 27, 2024 Woo Thapa MD Emergency Provider Active Star t: December 27, 2024 End: December 27, 2024 Julio Arriaga STATISTICAL MACHINE MECHANIC, STATISTICAL MACHINE MECHANIC-C Primary Care Provider Active Start: December 27, 2024 End: December 27, 2024 Team Status: Inactive Member Role Status Dates Michelle Baker NP-C Attending Provider Active Start: January 14, 2025 End: January 14, 2025 Julio Arriaga NP, STATISTICAL MACHINE MECHANIC-C Primary Care Provider Active Start: January 14, 2025 End: January 14, 2025 Julio Arriaga NP, STATISTICAL MACHINE MECHANIC-C Referring Provider Active Start: January 14, 2025 End: January 14, 2025 Pediatric Critical Care Nurse Relationship Specialty Start Date End Date Julio Arriaga, MECHANICAL FIELD ENGINEER.TOBACCO SAMPLER [address] [place], [place] [id number] PCP - General Internal Medicine 10/18/22 Ismael Kidd (Rn)(Hist), RN Specialty Audiovisual Tech Hematology/Oncology 08/30/17 Quin Nolan DO [address] [place] [address] Hospice Physician Peripheral Vascular 01/26/19 Jennifer Arias MD [address] [address] Physician Internal Medicine 02/11/19 Andrez Pitts DO [address] [id number] Gastroenterology 11/21/23 Kenya Garcia MD [address] [place], [place] [id number] General Surgery 09/15/24 Sidney Joya MD [address] [place], [place] [address] Radiation Oncology 09/16/24 Fredi Jones MD [address] [facility] [address] [place], [place] [address] Cardiology 09/16/24 Sarah Pearson, PAMadayC [address] [place], [place] [address] Rheumatology 09/16/24 Raul Hendrix LISW [address] [place] [address] Tar And Ammonia Pump Operator Hematology/Oncology 09/18/24 Josh Bennett DO [address] [place], [place] [id number] Hematology/Oncology 09/25/24 Roxanne Bland RN Specialty Audiovisual Tech Oncology 09/25/24 Pediatric Critical Care Nurse Relationship Specialty Start Date End Date Julio Arriaga, MECHANICAL FIELD ENGINEER.TOBACCO SAMPLER [address] [place] [phone] PCP - General Internal Medicine 10/18/22 Ismael Kidd (Rn)(Hist), RN Specialty Audiovisual Tech Hematology/Oncology 08/30/17 Quin Nolan DO [address] [place], [place] [id number] Hospice Physician Peripheral Vascular 01/26/19 Jennifer Arias MD [address] [facility] [address] [facility], [place] [id number] Physician Internal Medicine 02/11/19 Andrez Pitts DO [address] [facility] [address] [place] [address] Gastroenterology 11/21/23 Kenya Garcia MD [address] [place] [address] General Surgery 09/15/24 Sidney Joya MD [address] [place] [address] Radiation Oncology 09/16/24 Fredi Jones MD [address] [facility] [address] [place], [place] [address] Cardiology 09/16/24 Sarah Pearson PA-C [address] [place], [place] [address] Rheumatology 09/16/24 Raul Hendrix LISW [address] [place] [address] Tar And Ammonia Pump Operator Hematology/Oncology 09/18/24 Josh Bennett DO [address] [place] [address] Hematology/Oncology 09/25/24 Roxanne Bland, RN Specialty Audiovisual Tech Oncology 09/25/24 Team Status: Active Member Role/Relationship Status Dates Julio Arriaga NP, STATISTICAL MACHINE MECHANIC-C Primary Care Provider Active Team Status: Inactive Member Role/Relationship Status Dates Julio Arriaga NP, STATISTICAL MACHINE MECHANIC-C Primary Care Provider Active Start: October 19, 2024 End: October 19, 2024 Dr. Josh Bennett DO Attending Provider Active St art: October 19, 2024 End: October 19, 2024 Dr. Josh Bennett DO Referring Provider Active St art: October 19, 2024 End: October 19, 2024 Team Status: Active Member Role/Relationship Status Dates Julio Arriaga NP, STATISTICAL MACHINE MECHANIC-C Primary Care Provider Active Start: October 19, 2024 Dr. Lincoln Richards MD Attending Provider Active S tart: October 19, 2024 Dr. Josh Bennett , Referring Provider Active St art: October 19, 2024 Team Status: Inactive Member Role/Relationship Status Dates Julio Arriaga NP, STATISTICAL MACHINE MECHANIC-C Primary Care Provider Active Start: October 24, 2024 End: October 25, 2024 Dr. Rigoberto Dow , Attending Provider Active Start : October 24, 2024 End: October 25, 2024 Dr. Rigoberto Dow , Emergency Provider Active Start : October 24, 2024 End: October 25, 2024 Team Status: Inactive Member Role/Relationship Status Dates Julio Arriaga NP, STATISTICAL MACHINE MECHANIC-C Primary Care Provider Active Start: October 30, 2024 End: October 30, 2024 Dr. Gaudencio Ambriz , Attending Provider Active Start: October 30, 2024 End: October 30, 2024 Dr. Gaudencio Ambriz , Emergency Provider Active Start: October 30, 2024 End: October 30, 2024 Team Status: Inactive Member Role/Relationship Status Dates Woo Thapa MD Attending Provider Active Star t: December 27, 2024 End: December 27, 2024 Woo Thapa MD Emergency Provider Active Star t: December 27, 2024 End: December 27, 2024 Julio Arriaga NP, STATISTICAL MACHINE MECHANIC-C Primary Care Provider Active Start: December 27, 2024 End: December 27, 2024 Team Status: Inactive Member Role/Relationship Status Dates Michelle Baker NP-C Attending Provider Active Start: January 14, 2025 End: January 14, 2025 Julio Arriaga NP, STATISTICAL MACHINE MECHANIC-C Primary Care Provider Active Start: January 14, 2025 End: January 14, 2025 Julio Arriaga NP, STATISTICAL MACHINE MECHANIC-C Referring Provider Active Start: January 14, 2025 End: January 14, 2025 Team Status: Inactive Member Role/Relationship Status Dates Julio Arriaga NP, STATISTICAL MACHINE MECHANIC-C Primary Care Provider Active Start: February 02, 2025 End: February 02, 2025 Julio Arriaga NP, STATISTICAL MACHINE MECHANIC-C Referring Provider Active Start: February 02, 2025 End: February 02, 2025 Michelle Baker NP-C Attending Provider Active Start: February 02, 2025 End: February 02, 2025 Team Status: Inactive Member Role/Relationship Status Dates Julio Arriaga NP, STATISTICAL MACHINE MECHANIC-C Primary Care Provider Active Start: February 09, 2025 End: February 09, 2025 Julio Arriaga NP, STATISTICAL MACHINE MECHANIC-C Referring Provider Active Start: February 09, 2025 End: February 09, 2025 Dr. Kenya Garcia MD Attending Provider Active Start: February 09, 2025 End: February 09, 2025 Pediatric Critical Care Nurse Relationship Specialty Start Date End Date Julio Arriaga, MECHANICAL FIELD ENGINEER.TOBACCO SAMPLER [address] [place] [phone] PCP - General Internal Medicine 10/18/22 Ismael Kidd (Rn)(Hist), RN Specialty Audiovisual Tech Hematology/Oncology 08/30/17 Quin Nolan DO [address] [place], [place] [address] Hospice Physician Peripheral Vascular 01/26/19 Jennifer Arias MD [address] [facility] [address] [place] [address] Physician Internal Medicine 02/11/19 Andrez Pitts DO [address] [facility] [address] [place], [place] [address] Gastroenterology 11/21/23 Kenya Garcia MD [address] [place] [address] General Surgery 09/15/24 Sidney Joya MD [address] [place], [place] [address] Radiation Oncology 09/16/24 Fredi Jones MD 1261 [facility] [address] [place] [address] Cardiology 09/16/24 Sarah Pearson PA-C [address] [place] [address] Rheumatology 09/16/24 Raul Hendrix LISW [address] [place] [address] Tar And Ammonia Pump Operator Hematology/Oncology 09/18/24 Josh Bennett DO [address] [place] [address] Hematology/Oncology 09/25/24 Roxanne Bland, RN Specialty Audiovisual Tech Oncology 09/25/24 Care Team (unrecognized sect ion and content) Care Team Personnel Name: SELENE PIERRE MD Member Role: Primary Care Physician Address: Address: [address] [place] [address] Care Team Related Persons Name: TAYLOR HILL Name: MARZENA BORJAS Address: [facility] Care Team Personnel Name: SELENE PIERRE MD Member Role: Primary Care Physician Address: Address: [address] [place] [address] Care Team Related Persons Name: TAYLOR HILL Name: MARZENA BORJAS Address: [facility] Goals (unrecognized section and content) Goals may be documented in a n alternate section Inactive Administered Medications - up to 3 most recent administrations Administered Medications (un recognized section and content) Medication Order MAR Action Action Date Dose Rate Site abatacept 750 mg in NaCl 0.9% 100 mL (ORENCIA) 750 mg (set by rule on 04/11/2023 10:26 AM), INTRAVENOUS, at 200 mL/hr, Administer over 30 Minutes, ONCE, 1 dose, On Sat08/30/23 at 1100, Total Volume: 100 mL EXP 08/30/23 @ 2330 Administer with 0.2 micron filter. New Bag/Syringe/Bottle 08/30/2023 11:35 AM EST 750 mg 200 mL/hr Inactive Administered Medications - up to 3 most recent administrations Medication Order MAR Action Action Date Dose Rate Site abatacept 750 mg in NaCl 0.9% 100 mL (ORENCIA) 750 mg (set by rule on 04/11/2023 10:26 AM), INTRAVENOUS, at 200 mL/hr, Administer over 30 Minutes, ONCE, 1 dose, On [place] 09/26/23 at 1030, Total Volume: 100 mL EXP 09/27/23 @ 1030 Administer with 0.2 micron filter. New Bag/Syringe/Bottle 09/26/2023 11:12 AM EST 750 mg 200 mL/hr FOR RECORDS PERTAINING TO PATIENTS WHO ARE OR HAVE BEEN ENROLLED IN A CHEMICAL DEPENDENCY/SUBSTANCEABUSE PROGRAM, SOME INFORMATION MAY BE OMITTED. This clinical summary was aggregated from multiple sources. Caution should be exercised in using it in the provision of clinical care. This summary normalizes information from multiple sources, and as a consequence, information in this document may materially change the coding, format and clinical context of patient data. In addition, data may be omitted in some cases. CLINICAL DECISIONS SHOULD BE BASED ON THE PRIMARY CLINICAL RECORDS. [employer] [facility]. provides no warranty or guarantee of the accuracy or completeness of information in this document.
--- NOTE | 2025-02-27 19:19 | CM.ED ---
Social Work Date of referral: 02/27/25 Reason for referral: Advanced Care Directives (ACD's) not on file. Referred by: Social Work Identification Patient provided consent to social work visit. Blender requested a copy of ADC's which patient stated she would bring as soon as she gets them notarized. Patient stated she's a full code. Michelle Alvares, SUPERVISOR BUILDING MAINTENANCE, BIG DATA ENGINEER
[2025-02-27 19:48] VITALS: BP 147/68; PULSE 91; RESP 16; TEMP 36.7; O2SAT 97
== END 2025-02-27 19:53 | disposition home or self-care (01) ==
PROVIDERS: Emergency Provider Emergency Medicine; PCP Nurse Practitioner Family; Visit Provider Emergency Medicine
DX: M53.3 Sacrococcygeal disorders, not elsewhere classified (principal); I11.0 Hypertensive heart disease with heart failure; I50.32 Chronic diastolic (congestive) heart failure; G89.29 Other chronic pain; Z79.899 Other long term (current) drug therapy; Z87.891 Personal history of nicotine dependence
CPT/HCPCS: 36591; 96374; 96375; 99283; J2405

== ENCOUNTER 2025-03-02 08:14 | Day surgery (SDC) | payer MEDICARE, MEDICAID, SELFPAY ==
--- NOTE | 2025-02-24 15:01 | PAT.ANESEVAL ---
Pre-Assessment Diagnosis/Proposed Procedure Planned Operative Procedure(s): FLEX SIGMOIDOSCOPY Anesthesia History Anesthesia History - entertainment agent: Anesthesia History - entertainment agent Hx Hospitalization Yes: AUG 2024, ANAL CANCER 02/24/25 14:24 Any Problems With Anesthesia No 02/24/25 14:24 Cholinesterase deficiency No 02/24/25 14:24 You/Your Family Experience No 02/24/25 14:24 fever (hyperthermia) with Relationship Recent Exposure to Contagious No 09/02/24 15:32 Disease Does patient have nerve No 02/24/25 14:24 stimulator Patient instructed to have device shut off --Does patient have Pacemaker or ICD? When Was Last Pacemaker Check QUESTION #4 FULL TEXT: You/Your Family Experience fever (hyperthermia) with Anesthesia Last Oral Intake Last Oral intake: Last Oral Intake NPO since Meds taken in AM with sips of water? Meds patient instructed to take am of surgery PONV PONV - entertainment agent: PONV - entertainment agent Female Yes 02/24/25 14:24 HX of Motion Sickness Yes 02/24/25 14:24 HX of N/V After Surgery No 02/24/25 14:24 Non-Smoker Yes 02/24/25 14:24 Duration of Surgery greater No 02/24/25 14:24 than 60 minutes Number of Risk Factors 3 02/24/25 14:24 PONV Score Moderate Risk 02/24/25 14:24 Height & Weight Height & Weight: Anesthesia: Height & Weight Height 5 ft 2 in 02/09/25 09:46 Respiratory Assessment Respiratory Assessment - entertainment agent: Respiratory Tract Infection Hx - entertainment agent Hx Respiratory Tract Infection No 02/24/25 14:24 STOP Sleep Apnea STOP Sleep Apnea - entertainment agent: STOP Sleep Apnea - entertainment agent Hx Hypertension Yes 02/24/25 14:24 Hx Sleep Apnea No 02/24/25 14:24 CPAP No 09/02/24 18:53 BIPAP No 09/02/24 18:53 Do you snore loudly (louder No 02/24/25 14:24 than talking or can be heard Do you often feel tired/ No 02/24/25 14:24 fatigued/ sleepy during daytime? Has anyone observed you stop No 02/24/25 14:24 breathing during sleep? STOP Results Negative 02/24/25 14:24 QUESTION #5 FULL TEXT : Do you snore loudly (louder than talking or can be heard through closed doors)? 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 Specify any problems Hx of Preganancy in last 3 No 02/24/25 14:24 Months Nurse Filling Out Transfusion [facility] 02/24/25 14:24 & Questions: Date: 02/24/25 02/24/25 14:24 Time: 14:37 02/24/25 14:24 Patient unable to answer at this time (ie. 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 Mass of anus Perirectal abscess History of Crohn's disease Psoriatic arthritis Psoriasis Internal derangement of right knee Wears glasses Post-menopausal Depression Anxiety Ambulates with cane Injury of back Difficulty swallowing History of IBS History of hiatal hernia Former smoker Shortness of breath on exertion Chronic cough History of echocardiogram History of stress test Hypertension Cardiology follow-up encounter History of CHF (congestive heart failure) History of irregular heartbeat Acute pharyngitis, unspecified URI (upper respiratory infection) Contact with or suspected exposure to other viral communicable disease History of partial replacement of left hip joint using bipolar prosthesis Vitamin D deficiency HLD (hyperlipidemia) Insomnia Dry eye Regular astigmatism, bilateral PVCs (premature ventricular contractions) Coronary artery stenosis Chronic diastolic CHF (congestive heart failure) Iron malabsorption Osteoarthritis Lumbar spondylosis Osteoporosis Congenital cataract Intermittent palpitations Nausea TIA (transient ischemic attack) Acute maxillary sinusitis, unspecified Acute ethmoidal sinusitis, unspecified Acute frontal sinusitis, unspecified COPD exacerbation Foreign body in conjunctival sac, left eye, initial encounter Acute bacterial conjunctivitis Influenza A Acute bronchitis Back pain Limb weakness Asthma Anemia Arthritis Home Medications ?Medication ?Instructions ?Recorded ?Last Taken ?Type albuterol sulfate 90 mcg/actuation 2 puff inhalation Q4H PRN PRN 03/13/15 Unknown History aerosol inhaler Shortness Of Breath fluoxetine 20 mg capsule 60 mg PO QHS MENTAL HEALTH 12/13/15 09/01/24 History peg 218-dexjvxxlxswr-tpzqisop 1 1 drp OP 4X/DAY DRY EYES 11/13/17 03/19/24 History %-0.2 %-0.2 % eye drops (Dry Eye Relief) leflunomide 20 mg tablet (Arava) 20 mg PO QHS RA 03/22/18 09/01/24 History amlodipine 5 mg tablet 7.5 mg PO QHS BP 08/15/22 09/01/24 History mometasone 50 mcg/actuation nasal 2 spray intranasal .QAM ALLERGIES 08/15/22 09/01/24 History spray mecobalamin (vitamin B12) 1,000 1,000 mcg sublingual QHS SUPPLEMENT 12/06/22 09/01/24 History mcg disintegrating tablet,sublingual abatacept 50 mg/0.4 mL 50 mg subcut QMONTH RA 12/17/22 02/18/25 History subcutaneous syringe (Orencia) acetaminophen 500 mg tablet 1,000 mg PO Q6H PRN fever or pain 11/15/23 09/01/24 History atorvastatin 80 mg tablet 80 mg PO QHS 11/15/23 09/01/24 History meclizine 25 mg tablet 25 mg PO DAILY PRN PRN dizziness 03/17/24 Unknown History bupropion HCl (smoking deter) 150 150 mg PO QHS 09/02/24 09/01/24 History mg tablet,12 hr sustained-release(smoking deterrent) apixaban 5 mg (74 tabs) tablets in 10 mg PO Q12H 10/24/24 Unknown History a dose pack (Eliquis DVT-PE Treat 30D Start) cholecalciferol (vitamin D3) 1,250 1,250 mcg PO Q14D 10/24/24 Unknown History mcg (50,000 unit) capsule furosemide 20 mg tablet 20 mg PO DAILY 10/24/24 Unknown History alprazolam 1 mg tablet 1 mg PO TID 30 days #90 tabs 12/02/24 Unknown Rx dicyclomine 10 mg capsule 10 mg PO TID PRN for abdominal 01/25/25 Unknown Rx pain #90 caps pantoprazole 40 mg tablet,delayed 40 mg PO DAILY #90 TABLETS 01/25/25 Unknown Rx release diphenoxylate-atropine 2.5 1 tab PO TID PRN diarrhea #90 tabs 02/02/25 Unknown Rx mg-0.025 mg tablet (Lomotil) promethazine 25 mg tablet 25 mg PO Q6H PRN PRN Nausea #30 02/02/25 Unknown Rx tabs tramadol 50 mg tablet 50 mg PO Q6H PRN PRN pain 02/24/25 Unknown History Allergy/AdvReac Type Severity Reaction Status Date / Time doxycycline calcium (From Allergy Anaphylaxis Verified 02/09/25 09:47 Vibramycin) doxycycline hyclate (From Allergy Anaphylaxis Verified 02/09/25 09:47 Vibramycin) doxycycline monohydrate Allergy Anaphylaxis Verified 02/09/25 09:47 (From Vibramycin) NSAIDS (Non-Steroidal Allergy Anaphylaxis Verified 02/09/25 09:47 Anti-Inflamma duloxetine (From Cymbalta) AdvReac HEADACHE Verified 02/09/25 09:47 AND UPSET STOMACH hydrocodone bitartrate (From AdvReac STOMACH Verified 02/09/25 09:47 Vicodin) UPSET hydromorphone HCl (From AdvReac Vomiting Verified 02/09/25 09:47 Dilaudid) morphine AdvReac Vomiting Verified 02/09/25 09:47 Family History Mother Asthma Hypertension Kidney disease Father Asthma Myocardial infarction Daughter Asthma Diabetes Hypertension Sister Asthma Hypertension Surgical History (Updated 02/24/25 @ 14:24 by Elida Oconnell) History of left hip replacement History of total right knee replacement (TKR) S/P total knee arthroplasty Hx of esophagogastroduodenoscopy History of cardiac catheterization S/P repair of paraesophageal hernia History of Vanessa fundoplication H/O adenoidectomy History of tonsillectomy H/O hernia repair History of total left knee replacement Hx of section H/O shoulder surgery Social History household members: family housing: house Smoking Status: Former smoker quit date: 07/29/13 alcohol intake: never substance use type: does not use Audit: Pertinent Findings Pertinent Findings EKG Perinent findings: 2 Lead EKG 10/24/242128 MR#: [id number] Acct: [id number] Name: DEWEY HORTA Rep #: [id number] : 1960 64 From: Russel Wallis MD Attending Dr: Dr. Rigoberto Corbett, DO Status: DEP ER Ordering Dr: Jean-Paul Bates CHIEF LEGAL OFFICER-C Date: 10/24/24 Location: ED Sex: F C Admitted: Test Reason : PAIN Blood Pressure : */* mmHG Vent. Rate : 81 BPM Atrial Rate : 81 BPM P-R Int : 142 ms QRS Dur : 90 ms QT Int : 388 ms P-R-T Axes : 75 44 53 degrees QTcB Int : 450 ms Normal sinus rhythm Left ventricular hypertrophy with repolarization abnormality ( Sokolow-Raines ) Abnormal ECG When compared with ECG of 13-Dec-2015 16:38, Nonspecific T wave abnormality now evident in Lateral leads Confirmed by Russel Wallis ([id number]), newspaper managing editor SARAH SIDDIQI [id number]) on 10/29/2024 10:02:59 AM Referred By: Confirmed By: Russel Wallis Recommendation Anesthesia Recommendation Anesthesia recommendation: OPTIMIZED for anesthesia
[2025-03-02] VITALS (8 sets, daily range): BP systolic 104–133; BP diastolic 50–64; PULSE 66–78; RESP 16; TEMP 36.1–36.6; O2SAT 95–98; BMI 33.8
[2025-03-02] MEDS: Lactated Ringers 1,000 ML 15 ML IV (08:49)
--- NOTE | 2025-03-02 09:15 | COLBX_PTH ---
PATIENT: DEWEY HORTA LOC: EN U#:[id number] AGE/SX: 64/F ROOM: RE03/02/[address]: Dr. 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 Anus, biopsy: - Benign squamous mucosa with hyperkeratosis. - Negative for malignancy. MICROSCOPIC DESCRIPTION Slides are reviewed. GROSS DESCRIPTION A. Received in fixative is one container labeled with the patient's name and designated Anus biopsy. The specimen consists of three irregular fragments of light akhtar soft tissue that measure 0.3 to 0.6 cm. The specimen is totally submitted in one cassette. CPT:26907
--- NOTE | 2025-03-02 09:17 | PCM.PRE.AN2 ---
ASA Classification* ASA Classification ASA Classification: 2 Assessment & Plan Anesthesia* Anesthesia Assessment Anesthesia Assessment: Discussed sedation and/or anesthesia options, risks, benefits, and alternatives with patient/parents/legal guardian/POA. Questions invited. The patient/parents/legal guardian/POA seems to understand and agrees to proceed with anesthesia plan. Reviewed the physical assessment, medical history, allergy history and patient home medications list prior to surgery/procedure/anesthetic and documented any changes. Performed airway and anesthesia risk assessments. Anesthesia Type Anesthesia Type: MAC History Source History Obtained from:: Patient and Chart Anesthesia Focused Assessment* Temperature: 97.4 F Pulse Rate: 74 Blood Pressure: 133/63 Respiratory Rate: 16 Pulse Ox: 95 Oxygen Delivery Method: Room Air Airway Assessment Mouth opens: >3 cm Mallampati Score: II Teeth Condition: Missing Neck Range of motion (ROM): Limited ROM Labs Anesthesia Preop lab: CBC WBC 2.6 K/mm3 (4.4-11.0) L 10/24/24 21:10/24/24 RBC 3.69 M/mm3 (4.2-5.4) L 10/24/24 21:10/24/24 Hgb 10.1 g/dL (12.0-15.0) L 10/24/24 21:10/24/24 Hct 31.2 % (37-47) L 10/24/24 21:10/24/24 Plt Count 110 K/mm3 (150-450) L 10/24/24 21:23 10/24/24 CHEMISTRY Potassium 3.1 mmol/L (3.3-5.1) L 10/24/24 21:10/24/24 Sodium 137 mmol/L (133-145) 10/24/24 21:10/24/24 Magnesium 1.9 mg/dL (1.6-2.6) 01/11/23 15:05 01/11/23 BUN 8 mg/dL (4-19) 10/24/24 21:10/24/24 Creatinine 0.67 mg/dL (0.70-1.20) L 10/24/24 21:10/24/24 Glucose 85 mg/dL (70-99) 10/24/24 21:10/24/24 TSH 0.80 uIU/mL (0.358-3.74) 11/21/15 16:47 11/21/15 COAG PT 14.0 SECONDS (11.7-14.9) 01/11/23 15:06 01/11/23 Pre-Assessment Diagnosis/Proposed Procedure Planned Operative Procedure(s): FLEX SIGMOIDOSCOPY Anesthesia History 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 When Was Last Pacemaker Check QUESTION #4 FULL TEXT: You/Your Family Experience fever (hyperthermia) with Anesthesia Last Oral Intake Last Oral intake: Last Oral Intake NPO since 19:40 03/02/25 08:37 Meds taken in AM with sips of Yes 03/02/25 08:37 water? Meds patient instructed to [facility] @0630 03/02/25 08:37 take am of surgery protonix meclizine PONV PONV - reiki practitioner: PONV - reiki practitioner Female Yes 02/24/25 14:24 HX of Motion Sickness Yes 02/24/25 14:24 HX of N/V After Surgery No 02/24/25 14:24 Non-Smoker Yes 02/24/25 14:24 Duration of Surgery greater No 02/24/25 14:24 than 60 minutes Number of Risk Factors 3 02/24/25 14:24 PONV Score Moderate Risk 02/24/25 14:24 Height & Weight Height & Weight: Anesthesia: Height & Weight Height 5 ft 2.5 in 03/02/25 08:37 Weight: 85.3 kg 03/02/25 08:37 Body Mass Index (BMI) 33.8 03/02/25 08:37 Respiratory Assessment Respiratory Assessment - reiki practitioner: Respiratory Tract Infection Hx - reiki practitioner Hx Respiratory Tract Infection No 02/24/25 14:24 STOP Sleep Apnea STOP Sleep Apnea - reiki practitioner: STOP Sleep Apnea - reiki practitioner Hx Hypertension Yes 02/24/25 14:24 Hx Sleep Apnea No 02/24/25 14:24 CPAP No 09/02/24 18:53 BIPAP No 09/02/24 18:53 Do you snore loudly (louder No 02/24/25 14:24 than talking or can be heard Do you often feel tired/ No 02/24/25 14:24 fatigued/ sleepy during daytime? Has anyone observed you stop No 02/24/25 14:24 breathing during sleep? STOP Results Negative 02/24/25 14:24 QUESTION #5 FULL TEXT : Do you snore loudly (louder than talking or can be heard through closed doors)? 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 Specify any problems Hx of Preganancy in last 3 No 02/24/25 14:24 Months Nurse Filling Out Transfusion EHAVALON 02/24/25 14:24 & Questions: Date: 02/24/25 02/24/25 14:24 Time: 14:37 02/24/25 14:24 Patient unable to answer at this time (ie. 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 Mass of anus Perirectal abscess History of Crohn's disease Psoriatic arthritis Psoriasis Internal derangement of right knee Wears glasses Post-menopausal Depression Anxiety Ambulates with cane Injury of back Difficulty swallowing History of IBS History of hiatal hernia Former smoker Shortness of breath on exertion Chronic cough History of echocardiogram History of stress test Hypertension Cardiology follow-up encounter History of CHF (congestive heart failure) History of irregular heartbeat Acute pharyngitis, unspecified URI (upper respiratory infection) Contact with or suspected exposure to other viral communicable disease History of partial replacement of left hip joint using bipolar prosthesis Vitamin D deficiency HLD (hyperlipidemia) Insomnia Dry eye Regular astigmatism, bilateral PVCs (premature ventricular contractions) Coronary artery stenosis Chronic diastolic CHF (congestive heart failure) Iron malabsorption Osteoarthritis Lumbar spondylosis Osteoporosis Congenital cataract Intermittent palpitations Nausea TIA (transient ischemic attack) Acute maxillary sinusitis, unspecified Acute ethmoidal sinusitis, unspecified Acute frontal sinusitis, unspecified COPD exacerbation Foreign body in conjunctival sac, left eye, initial encounter Acute bacterial conjunctivitis Influenza A Acute bronchitis Back pain Limb weakness Asthma Anemia Arthritis Home Medications ?Medication ?Instructions ?Recorded ?Last Taken ?Type albuterol sulfate 90 mcg/actuation 2 puff inhalation Q4H PRN PRN 03/13/15 Unknown History aerosol inhaler Shortness Of Breath fluoxetine 20 mg capsule 60 mg PO QHS MENTAL HEALTH 12/13/15 09/01/24 History peg [id number] 1 1 drp OP 4X/DAY DRY EYES 11/13/17 03/19/24 History %-0.2 %-0.2 % eye drops (Dry Eye Relief) leflunomide 20 mg tablet (Arava) 20 mg PO QHS RA 03/22/18 09/01/24 History amlodipine 5 mg tablet 7.5 mg PO QHS BP 08/15/22 03/02/25 06:30 History mometasone 50 mcg/actuation nasal 2 spray intranasal .QAM ALLERGIES 08/15/22 09/01/24 History spray mecobalamin (vitamin B12) 1,000 1,000 mcg sublingual QHS SUPPLEMENT 12/06/22 09/01/24 History mcg disintegrating tablet,sublingual abatacept 50 mg/0.4 mL 50 mg subcut QMONTH RA 12/17/22 02/18/25 History subcutaneous syringe (Orencia) acetaminophen 500 mg tablet 1,000 mg PO Q6H PRN fever or pain 11/15/23 09/01/24 History atorvastatin 80 mg tablet 80 mg PO QHS 11/15/23 09/01/24 History meclizine 25 mg tablet 25 mg PO DAILY PRN PRN dizziness 03/17/24 03/02/25 06:30 History bupropion HCl (smoking deter) 150 150 mg PO QHS 09/02/24 09/01/24 History mg tablet,12 hr sustained-release(smoking deterrent) apixaban 5 mg (74 tabs) tablets in 10 mg PO Q12H 10/24/24 Unknown History a dose pack (Bellstrikequis DVT-PE Treat 30D Start) cholecalciferol (vitamin D3) 1,250 1,250 mcg PO Q14D 10/24/24 Unknown History mcg (50,000 unit) capsule furosemide 20 mg tablet 20 mg PO DAILY 10/24/24 Unknown History alprazolam 1 mg tablet 1 mg PO TID 30 days #90 tabs 12/02/24 Unknown Rx dicyclomine 10 mg capsule 10 mg PO TID PRN for abdominal 01/25/25 03/02/25 06:30 Rx pain #90 caps pantoprazole 40 mg tablet,delayed 40 mg PO DAILY #90 TABLETS 01/25/25 03/02/25 06:30 Rx release diphenoxylate-atropine 2.5 1 tab PO TID PRN diarrhea #90 tabs 02/02/25 Unknown Rx mg-0.025 mg tablet (Lomotil) promethazine 25 mg tablet 25 mg PO Q6H PRN PRN Nausea #30 02/02/25 Unknown Rx tabs tramadol 50 mg tablet 50 mg PO Q6H PRN PRN pain 02/24/25 Unknown History oxycodone-acetaminophen 5 mg-325 1 tab PO Q6H PRN PRN pain 5 days 02/27/25 Unknown Rx mg tablet #20 TABLETS prednisone 20 mg tablet 60 mg (3 x 20 mg) PO DAILY #15 02/27/25 Unknown Rx TABLETS Allergy/AdvReac Type Severity Reaction Status Date / Time doxycycline calcium (From Allergy Anaphylaxis Verified 02/27/25 17:20 Vibramycin) doxycycline hyclate (From Allergy Anaphylaxis Verified 02/27/25 17:20 Vibramycin) doxycycline monohydrate Allergy Anaphylaxis Verified 02/27/25 17:20 (From Vibramycin) NSAIDS (Non-Steroidal Allergy Anaphylaxis Verified 02/27/25 17:20 Anti-Inflamma duloxetine (From Cymbalta) AdvReac HEADACHE Verified 02/27/25 17:20 AND UPSET STOMACH hydrocodone bitartrate (From AdvReac STOMACH Verified 02/27/25 17:20 Vicodin) UPSET hydromorphone HCl (From AdvReac Vomiting Verified 02/27/25 17:20 Dilaudid) morphine AdvReac Vomiting Verified 02/27/25 17:20 Family History Mother Asthma Hypertension Kidney disease Father Asthma Myocardial infarction Daughter Asthma Diabetes Hypertension Sister Asthma Hypertension Surgical History History of left hip replacement History of total right knee replacement (TKR) S/P total knee arthroplasty Hx of esophagogastroduodenoscopy History of cardiac catheterization S/P repair of paraesophageal hernia History of Vanessa fundoplication H/O adenoidectomy History of tonsillectomy H/O hernia repair History of total left knee replacement Hx of section H/O shoulder surgery Social History household members: family housing: house Smoking Status: Former smoker quit date: 07/29/13 alcohol intake: never substance use type: does not use Review of Systems (Anesthesia) ROS Narrative System reviewed and no additional complaints, except as documented.
--- NOTE | 2025-03-02 10:08 | PCM.HP.STD ---
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 She denies any new issues or problems. She has recently undergone chemo and radiation with good results. Today is to biopsy for any residual disease [facility] Medical History Cancer Walker as ambulation aid DVT (deep venous thrombosis) Gastric reflux 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 Mass of anus Perirectal abscess History of Crohn's disease Psoriatic arthritis Psoriasis Internal derangement of right knee Wears glasses Post-menopausal Depression Anxiety Ambulates with cane Injury of back Difficulty swallowing History of IBS History of hiatal hernia Former smoker Shortness of breath on exertion Chronic cough History of echocardiogram History of stress test Hypertension Cardiology follow-up encounter History of CHF (congestive heart failure) History of irregular heartbeat Acute pharyngitis, unspecified URI (upper respiratory infection) Contact with or suspected exposure to other viral communicable disease History of partial replacement of left hip joint using bipolar prosthesis Vitamin D deficiency HLD (hyperlipidemia) Insomnia Dry eye Regular astigmatism, bilateral PVCs (premature ventricular contractions) Coronary artery stenosis Chronic diastolic CHF (congestive heart failure) Iron malabsorption Osteoarthritis Lumbar spondylosis Osteoporosis Congenital cataract Intermittent palpitations Nausea TIA (transient ischemic attack) Acute maxillary sinusitis, unspecified Acute ethmoidal sinusitis, unspecified Acute frontal sinusitis, unspecified COPD exacerbation Foreign body in conjunctival sac, left eye, initial encounter Acute bacterial conjunctivitis Influenza A Acute bronchitis Back pain Limb weakness Asthma Anemia Arthritis Home Medications ?Medication ?Instructions ?Recorded ?Last Taken ?Type albuterol sulfate 90 mcg/actuation 2 puff inhalation Q4H PRN PRN 03/13/15 Unknown History aerosol inhaler Shortness Of Breath fluoxetine 20 mg capsule 60 mg PO QHS MENTAL HEALTH 12/13/15 09/01/24 History peg 120-[id number]-omwppxyx 1 1 drp OP 4X/DAY DRY EYES 11/13/17 03/19/24 History %-0.2 %-0.2 % eye drops (Dry Eye Relief) leflunomide 20 mg tablet (Arava) 20 mg PO QHS RA 03/22/18 09/01/24 History amlodipine 5 mg tablet 7.5 mg PO QHS BP 08/15/22 03/02/25 06:30 History mometasone 50 mcg/actuation nasal 2 spray intranasal .QAM ALLERGIES 08/15/22 09/01/24 History spray mecobalamin (vitamin B12) 1,000 1,000 mcg sublingual QHS SUPPLEMENT 12/06/22 09/01/24 History mcg disintegrating tablet,sublingual abatacept 50 mg/0.4 mL 50 mg subcut QMONTH RA 12/17/22 02/18/25 History subcutaneous syringe (Orencia) acetaminophen 500 mg tablet 1,000 mg PO Q6H PRN fever or pain 11/15/23 09/01/24 History atorvastatin 80 mg tablet 80 mg PO QHS 11/15/23 09/01/24 History meclizine 25 mg tablet 25 mg PO DAILY PRN PRN dizziness 03/17/24 03/02/25 06:30 History bupropion HCl (smoking deter) 150 150 mg PO QHS 09/02/24 09/01/24 History mg tablet,12 hr sustained-release(smoking deterrent) apixaban 5 mg (74 tabs) tablets in 10 mg PO Q12H 10/24/24 Unknown History a dose pack (Eliquis DVT-PE Treat 30D Start) cholecalciferol (vitamin D3) 1,250 1,250 mcg PO Q14D 10/24/24 Unknown History mcg (50,000 unit) capsule furosemide 20 mg tablet 20 mg PO DAILY 10/24/24 Unknown History alprazolam 1 mg tablet 1 mg PO TID 30 days #90 tabs 12/02/24 Unknown Rx dicyclomine 10 mg capsule 10 mg PO TID PRN for abdominal 01/25/25 03/02/25 06:30 Rx pain #90 caps pantoprazole 40 mg tablet,delayed 40 mg PO DAILY #90 TABLETS 01/25/25 03/02/25 06:30 Rx release diphenoxylate-atropine 2.5 1 tab PO TID PRN diarrhea #90 tabs 02/02/25 Unknown Rx mg-0.025 mg tablet (Lomotil) promethazine 25 mg tablet 25 mg PO Q6H PRN PRN Nausea #30 02/02/25 Unknown Rx tabs tramadol 50 mg tablet 50 mg PO Q6H PRN PRN pain 02/24/25 Unknown History oxycodone-acetaminophen 5 mg-325 1 tab PO Q6H PRN PRN pain 5 days 02/27/25 Unknown Rx mg tablet #20 TABLETS prednisone 20 mg tablet 60 mg (3 x 20 mg) PO DAILY #15 02/27/25 Unknown Rx TABLETS Allergy/AdvReac Type Severity Reaction Status Date / Time doxycycline calcium (From Allergy Anaphylaxis Verified 02/27/25 17:20 Vibramycin) doxycycline hyclate (From Allergy Anaphylaxis Verified 02/27/25 17:20 Vibramycin) doxycycline monohydrate Allergy Anaphylaxis Verified 02/27/25 17:20 (From Vibramycin) NSAIDS (Non-Steroidal Allergy Anaphylaxis Verified 02/27/25 17:20 Anti-Inflamma duloxetine (From Cymbalta) AdvReac HEADACHE Verified 02/27/25 17:20 AND UPSET STOMACH hydrocodone bitartrate (From AdvReac STOMACH Verified 02/27/25 17:20 Vicodin) UPSET hydromorphone HCl (From AdvReac Vomiting Verified 02/27/25 17:20 Dilaudid) morphine AdvReac Vomiting Verified 02/27/25 17:20 Family History Mother Asthma Hypertension Kidney disease Father Asthma Myocardial infarction Daughter Asthma Diabetes Hypertension Sister Asthma Hypertension Surgical History History of left hip replacement History of total right knee replacement (TKR) S/P total knee arthroplasty Hx of esophagogastroduodenoscopy History of cardiac catheterization S/P repair of paraesophageal hernia History of Vanessa fundoplication H/O adenoidectomy History of tonsillectomy H/O hernia repair History of total left knee replacement Hx of section H/O shoulder surgery Social History household members: family housing: house Smoking Status: Former smoker quit date: 07/29/13 alcohol intake: never substance use type: does not use Vital Signs Vital Signs Vital Signs: 03/02/25 08:37 03/02/25 08:37 03/02/25 09:19 Temperature 97.4 F L 97.4 F L Temperature Source Temporal Pulse Rate 74 74 Respiratory Rate 16 16 Respiratory Pattern Normal Blood Pressure 133/63 H 133/63 H Blood Pressure Mean 86 Blood Pressure Source Monitor Blood Pressure Position Semi-Fowlers Blood Pressure Location Left Arm Pulse Ox 95 95 Oxygen Delivery Method Room Air Room Air Weight Weight: 188 lb 0.869 oz Body Mass Index (BMI) 33.8 Physical Exam Const alert and oriented x3 Assessment & Plan Assessment/Plan (1) 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
--- NOTE | 2025-03-02 10:44 | OP.FLEXSIG_ITS ---
Patient Name: Marimar Wang Procedure Date: 03/02/2025 10:02 AM Date of : 1960 Age: 64 Procedure: Flexible Sigmoidoscopy Indications: High risk colon cancer surveillance: Personal history of anal cancer Providers: Gee Garcia MD Referring MD: eGe Garcia MD Medicines: Monitored Anesthesia Care Patient Profile: Refer to note in patient chart for documentation of history and physical. Complications: No immediate complications. Estimated blood loss: Minimal. Procedure: Pre-Anesthesia Assessment: - Prior to the procedure, a History and Physical was performed, and patient medications and allergies were reviewed. The patient's tolerance of previous anesthesia was also reviewed. The risks and benefits of the procedure and the sedation options and risks were discussed with the patient. All questions were answered, and informed consent was obtained. Prior Anticoagulants: The patient has taken no anticoagulant or antiplatelet agents. ASA Grade Assessment: II - A patient with mild systemic disease. After reviewing the risks and benefits, the patient was deemed in satisfactory condition to undergo the procedure. After obtaining informed consent, the endoscope was passed under direct vision. Throughout the procedure, the patient's blood pressure, pulse, and oxygen saturations were monitored continuously. The was introduced through the anus and advanced to the rectosigmoid junction. The flexible sigmoidoscopy was accomplished without difficulty. The patient tolerated the procedure well. The quality of the bowel preparation was fair. Moderate Sedation: See the other procedure note for documentation of moderate sedation with intraservice time. Scope In: 10:27:27 AM Scope Out: 10:37:48 AM Total Procedure Duration Time 0 hours 10 minutes 21 seconds Findings: The digital rectal exam was normal. Pertinent negatives include no anal lesion or abnormality. The entire examined colon appeared normal. The anus at site of previous mass was biopsied with a cold forceps for histology. Verification of patient identification for the specimen was done by the nurse using the patient's name, date and medical record number. Estimated blood loss was minimal. Impression: - Preparation of the colon was fair. - The entire examined colon is normal. Biopsied. Procedure Code(s): --- Professional --- 22703, 52, Sigmoidoscopy, flexible; with biopsy, single or multiple Diagnosis Code(s): --- Professional --- Z85.048, Personal history of other malignant neoplasm of rectum, rectosigmoid junction, and anus CPT copyright 2021 [employer]. All rights reserved. The codes documented in this report are preliminary and upon wallpaperer helper review may be revised to meet current compliance requirements. Gee Garcia MD 03/02/2025 10:43:59 AM This report has been signed electronically. Number of Addenda: 0 Note Initiated On: 03/02/2025 10:02 AM
--- NOTE | 2025-03-02 10:44 | OP.PROVAT_ITS ---
03/02/2025 [facility] Re : Flexible Sigmoidoscopy procedure for Marimar Wang Dear Jacquie This procedure was performed on Sunday, March 02, 2025. My impressions and recommendations are as follows: Impressions : - Preparation of the colon was fair. - The entire examined colon is normal. Biopsied. Recommendations : My findings are described in the full procedure note, which is enclosed. If I can be of further assistance, please feel free to contact me at . Sincerely, Gee Garcia MD 03/02/2025 10:43:59 AM This report has been signed electronically.
--- NOTE | 2025-03-02 10:45 | PCM.POST.ANE ---
Anesthesia: Postop Eval I Current Vital Signs Temperature: 97 F Pulse Rate: 78 Blood Pressure: 107/64 Respiratory Rate: 16 Pulse Ox: 96 Assessment Airway patent: Yes Spontaneous unlabored respirations: Yes nausea: No Vomiting: No Anesthesia Complication: No Fluid Hydration Crystalloid volume administer (ml): 300 Total IV fluid infused: 300 Progress Note Anesthesia document: Postop Eval 1 completed: Yes
--- NOTE | 2025-03-02 20:16 | POSTOPAN2_ITS ---
Anesthesia Postop Eval I Sum Postop Eval Completion status Anesthesia document: Postop Eval 1 completed: Yes Anesthesia Postop Eval I Summary Anesthesia Postop Eval I Summary: Anesthesia Postop Eval I: Assessment Summary Airway patent Yes 03/02/25 10:45 [email or web address] Spontaneous unlabored Yes 03/02/25 10:45 [email or web address] respirations Mental status nausea No 03/02/25 10:45 [email or web address] Vomiting No 03/02/25 10:45 [email or web address] Anesthesia Postop Eval I: Fluid Summary Crystalloid volume administer 300 03/02/25 10:45 [email or web address] (ml) Colloids volume administered ( ml) Blood Product volume administered (ml) Total IV fluid infused 300 03/02/25 10:45 [email or web address] Anesthesia Postop Eval I: Summary Notes Anesthesia Complication No 03/02/25 10:45 [email or web address] Anesthesia Complication Comment: Post-operative progress note Anesthesia: Postop Eval II Evaluation Mental status: Awake and Calm Pain Level: 1 nausea: No Vomiting: No Complications Anesthesia Complication: No
--- NOTE | 2025-03-02 20:16 | PCM.POSTANE2 ---
Anesthesia Postop Eval I Sum Postop Eval Completion status Anesthesia document: Postop Eval 1 completed: Yes Anesthesia Postop Eval I Summary Anesthesia Postop Eval I Summary: Anesthesia Postop Eval I: Assessment Summary Airway patent Yes 03/02/25 10:45 [email or web address] Spontaneous unlabored Yes 03/02/25 10:45 PHYSICIAN [email or web address] respirations Mental status nausea No 03/02/25 10:45 PHYSICIAN [email or web address] Vomiting No 03/02/25 10:45 [email or web address] [email or web address] Anesthesia Postop Eval I: Fluid Summary Crystalloid volume administer 300 03/02/25 10:45 [email or web address] [email or web address] (ml) Colloids volume administered ( ml) Blood Product volume administered (ml) Total IV fluid infused 300 03/02/25 10:45 [email or web address] [email or web address] Anesthesia Postop Eval I: Summary Notes Anesthesia Complication No 03/02/25 10:45 [email or web address] [email or web address] Anesthesia Complication Comment: Post-operative progress note Anesthesia: Postop Eval II Evaluation Mental status: Awake and Calm Pain Level: 1 nausea: No Vomiting: No Complications Anesthesia Complication: No
== END 2025-03-02 11:31 | disposition home or self-care (01) ==
LOC: EN 08:15 → AC 08:16
PROVIDERS: PCP Nurse Practitioner Family; Referring Provider Surgery; Visit Provider Surgery
PROC: 0DJD8ZZ Inspection of Lower Intestinal Tract, Via Natural or Artificial Opening Endoscopic (ICD-10-PCS; CPT 45330; principal; 2025-03-02 09:10)
DX: L57.0 Actinic keratosis (principal); Z87.891 Personal history of nicotine dependence; E78.5 Hyperlipidemia, unspecified; Z86.718 Personal history of other venous thrombosis and embolism; Z86.73 Personal history of transient ischemic attack (TIA), and cerebral infarction without residual deficits; K21.9 Gastro-esophageal reflux disease without esophagitis; I10 Essential (primary) hypertension; Z85.048 Personal history of other malignant neoplasm of rectum, rectosigmoid junction, and anus
CPT/HCPCS: 45331; 88305; A4216

== ENCOUNTER 2025-03-27 14:56 | Inpatient (IN) | payer MEDICARE, MEDICAID, SELFPAY ==
[2025-03-27 14:57] VITALS: BP 190/82; PULSE 80; RESP 16; TEMP 36.8; O2SAT 100; BMI 30.5
--- OUTSIDE RECORDS SUMMARY | 2025-03-27 15:56 | XMS RPT_ITS | CCD ---
Author Organization [facility] [place] [facility] Care Team Providers Care Fly Tier Name Role Phone IGNACIO NEWMAN, DR SELENE [...] Unavailable Selene Pierre MD Primary Care Provider Ismael Kidd RN (Rn)(Hist) Unavailable Unavailable Quin Nolan DO Unavailable Jennifer Arias MD Unavailable Ronit Rahman DO Unavailable Kj Rowe MD Unavailable Ronit Rahman DO Unavailable Dr. Selene Pierre Primary Care Provider Dr. Selene Pierre Referring Provider Tony BENOIT, PA Patel Attending Provider Nancy BENOIT, PA Pablo Attending Provider [phone] Dr. Usama Sarmiento Attending Provider Corina 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, 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-C Julio Primary Care Provider [phone] Corina 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, 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-C Julio Referring Provider Eduardo BENOIT PA Kenya Mazariegos Attending Provider Briana 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, 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-C Jaci Mazariegos Attending Provider [phone] Corina RANGEL.TRACY, Julio Roberson Primary Care Provider Dr. Selene Pierre Primary Care Provider Dr. Selene Pierre Referring Provider Tony BENOIT, CY Sweeney Attending Provider [phone] Nancy BENOIT, PA Pablo Attending Provider [phone] Dr. Usama Sarmiento Attending Provider [phone] Corina TAPIA, 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-C Julio Primary Care Provider Corina TAPIA, 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-C Julio Referring Provider CY Reeves Attending Provider Briana TAPIA, 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-C Jaci Mazariegos Attending Provider [phone] MD GIANNI CERVANTES Referring Provider MD GIANNI Valencia Other Provider Unavailable Dr. Isaac Nichols Attending Provider Dr. Andrez Pitts Attending Provider [phone] Dr. Andrez Pitts Other Provider [phone] Selene Pierre Primary Care Provider Dr. Selene Pierre Referring Provider Dr. Isaac Nichols Attending Provider Dr. Selene Pierre Referring Provider Corina TAPIA, 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-C Julio Primary Care Provider Corina TAPIA, 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-C Julio Referring Provider CY Mclain Attending Provider [phone] Dr. Usama Sarmiento Attending Provider [phone] Michael Rawls Attending Provider [phone] Corina TAPIA, 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-C Julio Primary Care Provider Briana TAPIA, 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-C Jaci Mazariegos Attending Provider Dr. Michael Rawls Admit Provider [phone] Michael Rawls Other Provider [phone] Michael Rawls Referring Provider [phone] Marti ROJAS, Ismael Guy (Rn)(Hist) Unavailable Unavailable Quin Nolan DO Unavailable Ronit Rahman DO Unavailable Corina PROCTORN.Julio MOLINA Primary Care Provider Selene Pierre MD Primary Care Provider Dr. Michael Rawls Attending Provider [phone] Corina TAPIA, 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-C Julio Referring Provider [phone] Dr. Andrez Pitts Attending Provider [phone] Corina TAPIA, 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-C Julio Primary Care Provider Ronit Rahman DO Unavailable Ronit Rahman DO Unavailable Corina TAPIA, 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-C Julio Referring Provider Dr. Andrez Pitts Attending Provider [phone] Corina TAPIA, 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-C Julio Primary Care Provider Dr. Michael Rawls Attending Provider [phone] Dr. Usama Sarmiento Attending Provider [phone] Corina RANGEL.Julio MOLINA Primary Care Provider Andrez Pitts DO Unavailable [phone] Selene Pierre MD Primary Care Provider [phone] JULIO ARRIAGA CNP Consulting Unavailable FREDI JONES MD Primary Care Unavailabl e KAREN, FREDI NEWMAN Admitting Unavailabl e KAREN, FREDI NEWMAN Attending Unavailabl e PROVIDER, UNKNOWN Consulting Unavailable PROVIDER, UNKNOWN Consulting Unavailable WINDNABALDEMAR RAMÍREZICIA TRACY Admitting Unavailab le CORINAJULIO JONAS CNP Consulting Unavailable WINDNAGEL, CLARICE TRACY Attending Unavailab le WINDNAGEL, CLARICE TRACY Primary Care Unavailab le PROVIDER, UNKNOWN Consulting Unavailable PROVIDER, UNKNOWN Consulting Unavailable FREDI JONES MD Attending Unavailabl e JULIO ARRIAGA CNP Consulting Unavailable FREDI JONES MD Primary Care Unavailabl e JEREMYANDADawn, FREDI NEWMAN Admitting Unavailabl e PROVIDER, UNKNOWN [...] Attending Unavailable JULIO ARRIAGA CNP Consulting Unavailable CAROLYNN LEÓNA TRACY Referring Unavailab le PROVIDER, UNKNOWN Consulting Unavailable PROVIDER, UNKNOWN Consulting Unavailable JULIO ARRIAGA CNP Consulting Unavailable FREDI JONES MD Primary Care Unavailabl e KAREN, FREDI NEWMAN Admitting Unavailabl e KAREN, FREDI NEWMAN Attending Unavailabl e PROVIDER, UNKNOWN Consulting Unavailable PROVIDER, UNKNOWN Consulting Unavailable Ronit Rahman DO Unavailable Kj Rowe MD Unavailable Ronit Rahman DO Unavailable Kenya Garcia MD Unavailable [phone] Toan MD, Daesung Unavailable Karen NEWMAN, Fredi D Unavailable Michel SAMUEL, Sarah Jamison Unavailable [phone] Raul Woody Unavailable Unavailabl e Karen NEWMAN, Fredi Unavailable Sabrina BENAVIDES, Josh Mcduffie Unavailable Doup RN, Roxanne Unavailable Unavailable Corina TAPIA-C, Julio Primary Care Provider [phone] Corina TAPIA-C, Julio Referring Provider Hong DO, Dr. Maguire Attending Provider Jessa BENAVIDES, Dr. Scott Emergency Provider Radha NEWMAN, Dr. Kenya Mcduffie Admit Provider Radha NEWMAN, Dr. Kenya Mcduffie Attending Provider Radha NEWMAN, Dr. Kenya Mcduffie Other Provider Yoav NEWMAN, Dr. Armas Attending Provider Yoav NEWMAN, Dr. Armas Referring Provider Yoav NEWMAN, Dr. Armas Emergency Provider Sabrina BENAVIDES, Dr. Jeong Attending Provider Sabrina BENAVIDES, Dr. Jeong Referring Provider Susie NEWMAN, Dr. Stark Attending Provider Dr. Rigoberto Dow DO Emergency Provider [phone] Rigoberto Dow DO Attending Provider [phone] BENAVIDES, Dr. Ratliff Emergency Provider JULIO ARRIAGA Primary Care Unavailable ORTEGA CARDENAS Attending Unavailable ORTEGA CARDENAS Admitting Unavailable ARIAS, JENNIFER Attending Unavailable JULIO ARRIAGA Primary Care Unavailable ARIAS, JENNIFER Referring Unavailable JULIO ARRIAGA Primary Care Unavailable ARIAS, JENNIFER Referring Unavailable JULIO ARRIAGA Primary Care Unavailable ARIAS, JENNIFER Referring Unavailable JULIO ARRIAGA Primary Care Unavailable ARIAS, JENNIFER Referring Unavailable JULIO ARRIAGA Primary Care Unavailable SARAH PEARSON Attending Unavailable JULIO ARRIAGA Primary Care Unavailable JENNIFER ARIAS Referring Unavailable JULIO ARRIAGA Primary Care Unavailable SARAH PEARSON Attending Unavailable JULIO ARRIAGA Primary Care Unavailable Corina 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-C, Julio Primary Care Provider [phone] Corina 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-C, Julio Referring Provider Dr. Gaudencio Ambriz DO Attending Provider Alanis NEWMAN, Woo Emergency Provider Corina 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-C, Julio Primary Care Provider [phone] Woo Thapa MD Attending Provider Juan José 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-CMichelle Attending Provider Corina 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-C, Julio Referring Provider Corina 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-C, Julio Primary Care Provider Dr. Josh Bennett DO Attending Provider [phone] Josh Bennett DO Referring Provider Dr. Kenya Garcia MD Attending Provider Corina 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-C, Julio Primary Care Provider Tyler NEWMAN, Dr. Muhammad Attending Provider Dr. Pawel Cason MD Emergency Provider Corina 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-C, Julio Primary Care Provider Dr. Kenya Garcia MD Referring Provider Dr. Kenya Garcia MD Other Provider Tyler NEWMAN, Dr. Muhammad Attending Provider Yoav NEWMAN, Dr. Armas Attending Provider SHAWN BELTRAN Attending Unavailable JULIO ARRIAGA Primary Care Unavailable SIDNEY JOYA Referring Unavailable JULIO ARRIAGA Primary Care Unavailable JOSH BENNETT Referring Unavailable JULIO ARRIAGA Primary Care Unavailable JULIO ARRIAGA Primary Care Unavailable SIDNEY JOYA Referring Unavailable JULIO ARRIAGA Primary Care Unavailable TOAN, DAESUNG Referring Unavailable JULIO ARRIAGA Primary Care Unavailable TOAN, DAESUNG Referring Unavailable MASCI, JOSH A Referring Unavailable JULIO ARRIAGA Primary Care Unavailable ALONZO TRACY Referring Unavailable JULIO ARRIAGA Primary Care Unavailable MASCI, JOSH A Referring Unavailable JULIO ARRIAGA Primary Care Unavailable TOAN, DAESUNG Referring Unavailable JULIO ARRIAGA Primary Care Unavailable JULIO ARRIAGA Primary Care Unavailable MASCI, JOSH A Referring Unavailable JULIO ARRIAGA Primary Care Unavailable JOHNREYNA DOWANDA Yaquelin Referring Unavailable JULIO ARRIAGA Primary Care Unavailable MASCI, JOSH A Referring Unavailable JULIO ARRIAGA Primary Care Unavailable JULIO ARRIAGA Primary Care Unavailable TOAN, DAESUNG Referring Unavailable JULIO ARRIAGA Primary Care Unavailable JULIO ARRIAGA Primary Care Unavailable TOAN, DAESUNG Referring Unavailable TOAN, DAESUNG Referring Unavailable JULIO ARRIAGA Primary Care Unavailable TOAN, DAESUNG Referring Unavailable JULIO ARRIAGA Primary Care Unavailable JULIO ARRIAGA Primary Care Unavailable TOAN, DAESUNG Attending Unavailable DELVIN RON Attending Unavailable JULIO ARRIAGA Primary Care Unavailable JULIO ARRIAGA Primary Care Unavailable JULIO ARRIAGA Primary Care Unavailable TOAN, DAESUNG Referring Unavailable JULIO ARRIAGA Primary Care Unavailable TOAN, DAESUNG Attending Unavailable JULIO ARRIAGA Primary Care Unavailable TOAN, DAESUNG Referring Unavailable TOAN, DAESUNG Referring Unavailable TOAN, DAESUNG Attending Unavailable JULIO ARRIAGA Primary Care Unavailable DELVIN RON Attending Unavailable JULIO ARRIAGA Primary Care Unavailable JULIO ARRIAGA Primary Care Unavailable JULIO ARRIAGA Primary Care Unavailable TOAN, DAESUNG Referring Unavailable JULIO ARRIAGA Primary Care Unavailable TOAN, DAESUNG Referring Unavailable MASCAnn, JOSH A Referring Unavailable JULIO ARRIAGA Primary [...] Primary Care Unavailable TOAN, DAESUNG Attending Unavailable JOSH BENNETT Attending Unavailable MASCJOSH Juarez A Referring Unavailable JULIO ARRIAGA Primary Care Unavailable SARAH PEARSON Referring Unavailable MASCI, JOSH Mcduffie Attending Unavailable JULIO ARRIAGA Primary Care Unavailable JULIO ARRIAGA Primary Care Unavailable JULIO ARRIAGA Primary Care Unavailable TOAN, DAESUNG Attending Unavailable JULIO ARRIAGA Primary Care Unavailable TOAN, DAESUNG Referring Unavailable TOAN, DAESUNG Attending Unavailable MASCAnn, JOSH A Referring Unavailable JULIO ARRIAGA Primary Care Unavailable JULIO ARRIAGA Primary Care Unavailable JUAN JOSÉ CHEEMA Referring Unavailable MASCJOSH Juarez Referring Unavailable JULIO ARRIAGA Primary Care Unavailable JUAN JOSÉ CHEEMA Attending Unavailable JULIO ARRIAGA Primary Care Unavailable MASCI, JOSH A Referring Unavailable JULIO ARRIAGA Primary Care Unavailable TOAN, DAESUNG Referring Unavailable JULIO ARRIAGA Primary Care Unavailable TOAN, DAESUNG Referring Unavailable JULIO ARRIAGA Primary Care Unavailable RICCI ABREU Attending Unavailable JULIO ARRIAGA Primary Care Unavailable TOAN, DAESUNG Referring Unavailable JULIO ARRIAGA Primary Care Unavailable TOAN, DAESUNG Referring Unavailable MASCI, JOSH A Referring Unavailable JULIO ARRIAGA Primary Care Unavailable JULIO ARRIAGA Primary Care Unavailable TOAN, DAESUNG Referring Unavailable ARIAS, JENNIFER Referring Unavailable JULIO ARRIAGA [...] Referring Unavailable JULIO ARRIAGA Primary Care Unavailable SABRINA, JOSH A Attending Unavailable KENYA GARCIA Referring Unavailable JULIO ARRIAGA Primary Care Unavailable JULIO ARRIAGA Primary Care Unavailable JULIO ARRIAGA Primary Care Unavailable JULIO ARRIAGA Primary Care Unavailable TOAN, DAESUNG Referring Unavailable TOAN, DAESUNG Referring Unavailable JULIO ARRIAGA Primary Care Unavailable TOAN, DAESUNG Referring Unavailable JULIO ARRIAGA Primary Care Unavailable TOAN, DAESUNG Referring Unavailable JULIO ARRIAGA Primary Care Unavailable JULIO ARRIAGA Primary Care Unavailable TOAN, DAESUNG Referring Unavailable TOAN, DAESUNG Attending Unavailable JULIO ARRIAGA Primary Care Unavailable SABRINA, JOSH A Attending Unavailable JULIO ARRIAGA Primary Care Unavailable Corina 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, Julio Primary Care Unavailable Woo Thapa Attending Unavailable Cason, Pawel Attending Unavailable Cason, Pawel Referring Unavailable Corina 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, Julio Primary Care Unavailable Rigoberto Dow Attending Unavailable Corina 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, Julio Primary Care Unavailable Juan JoséMichelle Attending Unavailable Juan José Michelle Referring Unavailable Corina 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, Julio Primary Care Unavailable Corina 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, Julio Primary Care Unavailable Gaudencio Ambriz Attending Unavailable Corina 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, Julio Referring Unavailable Corina 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, Julio Primary Care Unavailable Corina 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, Julio Attending Unavailable Juan José, Michelle Attending Unavailable Corina 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, Julio Primary Care Unavailable Juan José Michelle Referring Unavailable Kenya Garcia Attending Unavailable Kenya Garcia Admitting Unavailable Corina 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, Julio Primary Care Unavailable Juan José Michelle Attending Unavailable Corina 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, Julio Referring Unavailable Corina 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, Julio Primary Care Unavailable Friend, Andrez Attending Unavailable Corina 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, Julio Referring Unavailable Corina 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, Julio Primary Care Unavailable Wanek, Kenya A Attending Unavailable Corina 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, Julio Referring Unavailable Corina 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, Julio Primary Care Unavailable Masci, Josh Attending Unavailable Masci, Josh Referring Unavailable Corina 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, Julio Primary Care Unavailable Corina 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, Julio Primary Care Unavailable Cason, Pawel Attending Unavailable Masci, Josh Referring Unavailable Masci, Josh Attending Unavailable Corina 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, Julio Primary Care Unavailable Masci, Josh Referring Unavailable Masci, Josh Attending Unavailable Corina 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, Julio Primary Care Unavailable Friend, Andrez Attending Unavailable Friend, Andrez Referring Unavailable Corina 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, Julio Primary Care Unavailable Corina 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, Julio Referring Unavailable Corina 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, Julio Attending Unavailable Corina 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, Julio Primary Care Unavailable Wanek, Kenya A Attending Unavailable Wanek, Kenya A Referring Unavailable Wanek, Kenya A Consulting Unavailable Corina 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, Julio Primary Care Unavailable Corina 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, Julio Primary Care Unavailable Michelle Baker Attending Unavailable Corina 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, Julio Referring Unavailable Wanek, Kenya A Attending Unavailable Corina 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, Julio Primary Care Unavailable Corina 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, Julio Referring Unavailable Wanek, Kenya A Attending Unavailable Wanek, Kenya A Referring Unavailable Corina 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, Julio Primary Care Unavailable Friend, Andrez Attending Unavailable Corina 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, Julio Referring Unavailable Corina 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, Julio Primary Care Unavailable Gaudencio Ambriz Attending Unavailable Corina 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, Julio Primary Care Unavailable Corina 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, Julio Primary Care Unavailable Michelle Baker Attending Unavailable Corina 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, Julio Referring Unavailable Wanek, Kenya A Attending Unavailable Wanek, Kenya A Consulting Unavailable Corina 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, Julio Primary Care Unavailable Wanek, Kenya A Admitting Unavailable Wanek, Kenya A Consulting Unavailable Wanek, Kenya A Attending Unavailable Corina 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, Julio Primary Care Unavailable Lincoln Richards Attending Unavailable Masci, Josh Referring Unavailable Corina 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, Julio Primary Care Unavailable FriendAndrez Attending Unavailable Corina 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, Julio Primary Care Unavailable Corina 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, Julio Referring Unavailable Corina 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, Julio Referring Unavailable Corina 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, Julio Primary Care Unavailable Friend, Andrez Attending Unavailable Allergies Allergy Classification Reported Allergen(s) Allergy Type Date of Onset Reaction(s) Facility Acetaminophen / HYDROcodone (1 source) Acetaminophen / HYDROcodone Drug Allergy 4 Vomiting [facility] Doxycycline (1 source) Doxycycline Drug Allergy 5 Anaphylaxis [facility] DULoxetine (1 source) DULoxetine Drug Allergy 4 Intolerance [facility] Opioid Agonists (2 sources) HYDROmorphone Drug Allergy 4 Vomiting [facility] (20 sources) Acetaminophen / HYDROcodone; Translations: [acetaminophen-hy drocodone] Drug Allergy 5 Vomiting [facility] (4 sources) Doxycycline; Translations: [doxycycline] Drug Allergy ORAL SWELLING, ITCHING [facility] (4 sources) HYDROmorphone; Translations: [hydromorphone] Drug Allergy NAUSEA AND VOMITING [facility] (4 sources) Naproxen; Translations: [naproxen] Drug Allergy ANAPHYLAXIS [facility] (4 sources) misc non-codified allergy 1 Drug allergy [facility] Comment on above: horse serum (20 sources) Doxycycline; Translations: [DOXYCYCLINE CALCIUM] Drug Allergy 5 Anaphylaxis [facility] Work Phone: (20 sources) DULoxetine; Translations: [DULOXETINE] Drug Allergy 5 Intolerance [facility] (20 sources) HYDROmorphone; Translations: [HYDROMORPHONE (BULK)] Drug Allergy 2 Vomiting [facility] (20 sources) Morphine; Translations: [MORPHINE] Drug Allergy 6 Vomiting [facility] (20 sources) Non-steroidal anti-inflammatory agent; Translations: [NSAIDS (NON-STEROIDAL ANTI-INFLAMMATORY DRUG)] Drug Allergy 5 Anaphylaxis [facility] Work Phone: (20 sources) horse serum [Other] Propensity to adverse reactions 5 [facility] Work Phone: (20 sources) Non-steroidal anti-inflammatory agent Drug Allergy 5 Anaphylaxis [facility] Work Phone: (20 sources) Doxycycline; Translations: [doxycycline hyclate] Drug Allergy 3 Anaphylaxis [facility] (20 sources) Doxycycline; Translations: [doxycycline monohydrate] Drug Allergy 3 Anaphylaxis [facility] (20 sources) HYDROcodone; Translations: [hydrocodone bitartrate] Drug Allergy 3 STOMACH UPSET [facility] (20 sources) HYDROmorphone; Translations: [hydromorphone HCl] Drug Allergy 3 Vomiting [facility] (20 sources) Nonsteroidal Anti-inflammatory Compounds Allergy to substance 3 Anaphylaxis [facility] (20 sources) Horse/Equine Containing Products; Translations: [HORSE/EQUINE CONTAINING PRODUCTS] Drug Allergy 4 Swelling [facility] (1 source) Acetaminophen / HYDROcodone Drug Allergy [facility] (1 source) celecoxib Drug Allergy [facility] (1 source) Doxycycline Drug Allergy [facility] (1 source) DULoxetine Drug Allergy [facility] (1 source) HYDROmorphone Drug Allergy [facility] (1 source) Morphine Drug Allergy [facility] (1 source) NSAID Drug allergy (disorder) [facility] (3 sources) Acetaminophen / HYDROcodone; Translations: [HYDROCODONE-ACET AMINOPHEN] Drug Allergy 4 [facility] Other [place] Rep[facility] (1 source) Doxycycline Drug Allergy 5 [facility] Repository (1 source) DULoxetine Drug Allergy 5 [facility] Repository (1 source) Morphine Drug Allergy 5 [facility] Rep[facility] (1 source) NSAIDs Drug allergy (disorder) 5 [facility] Rep[facility] Medications Current Medications Medication Drug [...] 0.4 ml abatacept 125 mg/ml prefilled syringe (20 sources) Selective T Cell Costimulation Modulator Start: 12-17-2022 Abatacept (Orencia) 50 mg/0.4 mL syringe Active 50 mg SC EVERY MONTH December 17, 2022 12:00am RA Start: 08-15-2022 Abatacept (Ore ncia) 50 mg/0.4 mL syringe Active MG SC August 15, 2022 1:00am abatacept/maltose (ORENCIA, WITH MALTOSE, INTRAVENOUS) (20 sources) abatacept/julian e (ORENCIA, WITH MALTOSE, INTRAVENOUS) Inject intravenously. Active abatacept/julian e (ORENCIA, WITH MALTOSE, INTRAVENOUS) Inject intravenously. 0 Active Comment on above: Inject intravenously . [id number] 200 actuat albuterol 0.09 mg/actuat metered dose [...] / diphenoxylate hydrochloride 2.5 mg oral tablet (4 sources) Anticholinergic, Cholinergic Muscarinic Antagonist, Antidiarrheal Start: 02-02-2025 Diphenoxylate-Atro pine (Lomotil) 2.5-0.025 mg tablet Active 1 {tbl} PO THREE TIMES A DAY as needed for diarrhea 90 0 February 02, 2025 12:00am smoking cessation 12 hr buPROPion hydrochloride 150 [...] Take 1 tablet by brielle once daily. calcium carbonate 600 mg chewable tablet (4 sources) Start: 10-07-19 16 calcium carbonate 600 mg oral tablet, chewable Dose : 1,200 mg = 2 tab(s), Chewed, TID, 0 Refill(s) Start Date: 10/07/15 Status: Ordered Centrum Silver oral tablet (4 sources) Start: 10-07-19 16 take 1 tablet by mouth once daily Centrum Silver oral tablet Dose = 1 tab(s), Oral, Daily, 0 Refill(s) Start Date: 10/07/15 Status: Ordered cholecalciferol 1.25 mg oral capsule (20 sources) Vitamin D Start: 10-25-19 take 1 capsule by mouth every other week Cholecalciferol (Vitamin D3) 1,250 mcg (50,000 unit) capsule Active 1250 ug PO Q14D October 24, 2024 12:00am Start: 10-24-2024 take 1 capsule by mo [facility] once daily Cholecalciferol (Vitamin D3) 1,250 mcg [...] on above: Take 1 capsule by mo [facility] one time a week. Take 1 capsule by mo [facility] every other week. clindamycin 300 mg oral [...] Discontinued 300 mg PO 4 TIMES DAILY 7 September 25, 2024 1:00am October 02, 2024 10:58am docusate sodium 100 mg oral capsule (4 sources) Start: 08-31-2021 Colace 100 mg oral capsule Dose : 100 mg = 1 cap(s), Oral, BID, PRN Constipation, 0 Refill(s) Start Date: 08/31/21 Status: Ordered Dulera 100 mcg-5 mcg/inh Metered Dose Inhaler (4 sources) Start: 08-29-2021 take 1 dose by inhalation twice daily Dulera 100 mcg-5 mcg/inh Metered Dose Inhaler Dose = 2 puff(s), Inhalation, BID, # 13 gram(s), 0 Refill(s) Start Date: 08/29/21 Status: Ordered enteric contrast (will be provided with radiology test) (3 sources) Start: 03-19-2025 End: 03-20-2025 enteric contrast (will be provided with radiology test) Indications: Malignant neoplasm of anus (HCC) For CT CHESTABD/PEL W IVCON Routine order Administer, As Directed One Time Only, via Oral, Rectal, both Oral and Rectal, Enteric Tube, Stoma or Indwelling Catheter, Enteric Contrast as designated per enteric contrast guidelines 1 each 03/19/2025 03/20/2025 Active ergocalciferol (D2) 1000 units oral tablet (4 [...] End: 03-12-2022 take 3 capsules by mouth at bedtime Fluoxetine 20 MG capsule Active 60 mg PO AT BEDTIME December 13, 2015 12:00am MENTAL HE[facility] Start: 12-13-2015 take 60 mg by mouth at bedtime Fluoxetine Active 60 MG PO AT BEDTIME December 13, 2015 12:00am Start: 10-07-2015 FLUoxetine 20 mg oral tablet Dose : 60 mg = 3 tab(s), Oral, qDay, # 30 tab(s), 0 Refill(s) Start Date: 10/07/15 Status: Ordered Comment on above: Take 3 capsules by [facility] once daily. furosemide 20 mg oral tablet [...] solution (20 sources) Non-Standardized Chemical Allergen Start: 8 take 15 mL into the eye(s) four times daily Peg 305-Wwtkmznnnemt-Ainmve in (Dry Eye Relief) 15 ML drops Active 1 NMA OP 4 TIMES DAILY November 13, 2017 12:00am DRY EYES iv contrast (will be provided with radiology test) (20 sources) Start: End: iv contrast (will be provided with radiology test) Indications: Malignant neoplasm of anus (HCC) CT Chest ABD/PEL-Inject, intravenously, once for 1 dose.No IV access, [...] the CT contrast administration guidelines link. 1 each 03/19/2025 03/20/2025 Active Start: 09-16-2024 End: 09-17-2024 iv contrast [...] EVERY 8 HOURS as needed for Vertigo 12 0 December 14, 2015 2:15pm July 12, 2017 2:25pm take 1 tablet by brielle th every eight hours as needed meclizine (ANTIVERT) 25 mg tab Take 25 mg by mouth three times a day as needed (for dizziness). Active miconazole nitrate 20 mg/ml vaginal cream (20 [...] g 1 11/09/2024 Active Start: 11-15-2023 End: 04-26-2024 take 1 mL by mouth three times daily Nystatin 100,000 unit/mL suspension Discontinued 1 mL PO THREE TIMES A DAY 7 0 November 15, 2023 12:00am November 21, 2023 12:00am November 22, 2023 12:06am swish and swallow OLANZapine 5 mg oral tablet (3 sources) Atypical Antipsychotic Start: 10-12-2024 End: 10-16-2024 take 1 tablet by mouth once daily at bedtime OLANZapine (ZYPREXA) 5 mg tablet Take 1 tablet by mouth daily at bedtime. 30 tablet 2 10/12/2024 10/16/2024 Discontinued pregabalin 150 mg oral capsule (20 sources) [...] on above: Take 1 capsule by mo [facility] twice daily for 180 days. Take 1 capsule by mo [facility] twice daily for 90 days. prochlorperazine 10 mg oral tablet (20 sources) Phenothiazine Start: 2024 take 1 tablet by mouth three times daily as needed for nausea and vomiting Prochlorperazine Maleate (Compazine) 10 mg tablet Active 10 mg PO THREE TIMES A DAY as needed for nausea and vomiting 27 08March 16, 2025 12:00am Start: 10-16-2024 End: 01-14-2025 take 1 tablet by mouth every six hours as needed prochlorperazine (COMPAZINE) 10 mg tablet Take 1 tablet by mouth every 6 hours as needed. 30 tablet 11/30/2024 Active silver sulfADIAZINE 10 mg/ml topical cream (20 sources) Sulfonamide Antibacterial Start: 10-30-2024 End: 11-16-2024 SSD 1 % cream APPLY TO AFFECTED AREA TWICE DAILY 50 g 11/16/2024 Active traMADol hydrochloride 50 mg oral tablet (20 sources) Opioid Agonist Start: 02-24-2025 take 1 tablet by mouth every six hours as needed for pain Tramadol 50 mg tablet Active 50 mg PO EVERY 6 HOURS NEEDED as needed for pain February 24, 2025 12:00am Start: 09-02-2024 End: 10-02-2024 take 1 tablet [...] 13, 2015 12:00am July 12, 2017 2:26pm vitamin b12 1 mg oral tablet (20 sources) Vitamin B12 Start: 11-24-2022 take 1 tablet by mouth once daily VITAMIN B-12 1,000 mcg tab DISSOLVE 1 TABLET BY MOUTH ONCE DAILY 11/24/2022 Active Comment on above: DISSOLVE 1 TABLET BY MOUTH ONCE DAILY Completed/Discontinued Medications Medication Drug Class(es) Dates Sig (Normalized) Sig (Original) abatacept 750 mg in NaCl 0.9% 100 mL (ORENCIA) (11 sources) Start: 03-18-2025 End: 03-18-2025 750 mg, INTRAVENOUS, at 200 mL/hr, Administer over 30 Minutes, ONCE, 1 dose, On [place] 03/18/25 at 1030, Dose for patients weighing greater than or equal to 60 kg and less than or equal to 100 kg is equal to 750 mg. Total Volume: 100 mL Administer with 0.2 micron filter. Start: 02-18-2025 End: 02-18-2025 750 mg, INTRAVENOUS, at 200 mL/hr, Administer over 30 Minutes, ONCE, 1 dose, On [place] 02/18/25 at 1300, TOTAL VOLUME - Expires: 02/19/25 [...] over 30 Minutes, ONCE, 1 dose, On Sat01/07/25 at 1030, TOTAL VOLUME - Expires: 01/08/25 @ 1030 Administer with 0.2 micron filter. Start: 06-18-2024 End: 06-18-2024 750 mg, INTRAVENOUS, at 200 mL/hr, Administer over 30 Minutes, ONCE, 1 dose, On Sat06/18/24 at 1000, Dose for patients weighing greater than or equal to 60 kg and less than or equal to 100 kg is equal to 750 mg. Total Volume: 100 mL Administer with 0.2 micron filter. Start: 05-21-2024 End: 05-21-2024 750 mg, INTRAVENOUS, at 200 mL/hr, Administer over 30 Minutes, ONCE, 1 dose, On Sat05/21/24 at 1330, Dose for patients weighing greater [...] Active 1000 MG PO EVERY 6 HOURS January 24, 2023 12:00am Start: 07-12-2017 acetaminophen [...] / HYDROcodone bitartrate 5 mg oral tablet (19 sources) Opioid Agonist Start: 12-27-2024 End: 02-02-2025 [...] part of trunk Start: 08-29-2021 End: 09-05-2021 Luther 325- 5 mg oral tablet Dose = 1 tab(s), Oral, q4h, PRN for pain, May take 1-2 tablets / dose, X 7 day(s), # 28 tab(s), 0 Refill(s), Displaced fracture of left femoral neck, 97 Start Date: 08/29/21 Stop Date: 09/05/21 Status: Ordered acetaminophen 325 mg / oxyCODONE hydrochloride 5 mg oral tablet (20 sources) Opioid Agonist Start: 02-27-2025 End: 03-16-2025 Oxycodone-Acetaminophen 5-32 5 mg tablet Discontinued 1 {tbl} PO EVERY 6 HOURS NEEDED as needed for pain 20 5 0 February 27, 2025 March 16, 2025 10:35am Chronic left sacroiliac joint pain Anaphylaxis due to nonsteroidal anti-inflammatory drug (NSAID) Sacrococcygeal disorders, not elsewhere classified Other chronic pain Start: 09-03-2024 End: 01-14-2025 Oxycodone-Acetaminophen (Per cocet) 5-325 mg tablet Discontinued 1 {tbl} PO EVERY 6 HOURS as needed for pain 12 3 0 October 30, 2024 January 14, 2025 8:25am Contusion of hip and thigh Contusion of unspecified hip, initial encounter Contusion of unspecified thigh, initial encounter Start: 09-03-2024 End: 09-15-2024 Oxycodone-Acetaminophen (Per cocet) 5-325 mg tablet Discontinued 1 {tbl} PO Q8H as needed for pain 14 3 0 September 03, 2024 September 15, 2024 2:23pm Perirectal abscess Mass of anus Rectal abscess Other specified diseases of anus and rectum Start: 12-13-2023 End: 03-17-2024 Oxycodone-Acetaminophen (Per cocet) [...] 1000 MG PO TWICE A DAY 40 10 July 30, 2018 1:00am August 09, 2018 [...] Discontinued 1 {tbl} PO TWICE A DAY January 11, 2021 12:00am July 13, 2022 10:07am Start: 01-11-2021 End: 07-13-2022 take 1 tablet by mouth twice daily Amoxicillin-Pot Clavulanate Discontinued 1 TABLET PO TWICE A DAY January 11, 2021 12:00am July 13, 2022 10:07am Start: 09-18-2018 End: 10-24-2018 Amoxicillin-Pot Clavulanate 875-125 mg tablet Discontinued 1 {tbl} PO TWICE A DAY September 18, 2018 [...] Discontinued 1 {tbl} PO Q12H 20 10 August 02, 2017 1:00am August 11, 2017 1:00am August 12, 2017 1:06am Acute sinusitis, unspecified Start: 07-12-2017 End: 07-22-2017 Amoxicillin-Pot Clavulanate (Augmentin) 875-125 mg tablet Discontinued 1 {tbl} PO Q12H 20 10 0 July 12, 2017 1:00am July 21, 2017 1:00am July 22, 2017 1:05am Acute sinusitis, unspecified amylase 318225 unt / lipase 04137 unt / protease [id number] unt delayed release oral capsule (20 sources) Start: 09-25-2023 End: 02-02-2025 Ltboho-Kwxucfaq-Aehnojb (Cre on) 36,000-114,000- 180,000 unit capsule,delayed release(DR/EC) Discontinued 0 PO .COMPLEX 300 11 January 25, 2025 4:25pm February 02, 2025 11:29am take 1-2 with snacks and 2-3 with meals End: 03-19-2025 take 1-3 capsules by mouth at bedtime [id number] (CREON 36) 36,000-114,000- 180,000 unit delayed release capsule Take 1-3 capsules by mouth with meals and at bedtime. With snacks also 03/19/2025 Discontinued aspirin 81 mg oral tablet (20 sources) [...] 200 MG PO THREE TIMES A DAY July 13, 2022 1:00am August 15, 2022 [...] infantis 4 mg oral capsule (2 sources) Start: End: take 1 capsule by mouth once daily Bifidobacterium Infantis (ALIGN) 4 mg cap Take 1 capsule by mouth once daily. 30 capsule 2 11/11/2020 05/19/2021 Discontinued (Course of therapy completed) Comment on above: Take 1 capsule by mo [facility] once daily. budesonide 3 mg delayed release oral capsule (20 sources) Corticosteroid Start: 024 End: 025 take 2 capsules by mouth once budesonide, enteric coated (ENTOCORT EC) 3 mg 24 hr capsule Take 2 capsules by mouth every afternoon. 11/04/2023 03/19/2025 Discontinued Start: 07-05-2023 End: 02-09-2025 take 2 capsules by mouth once daily Budesonide 3 mg capsule,delayed,extend.release Discontinued 6 mg PO DAILY 60 5 January 25, 2025 4:24pm February 09, 2025 9:48am Start: 07-05-2023 take 6 mg by mouth o nce daily Budesonide Active 6 MG PO DAILY 60 30 July 05, 2023 1:00am carboxymethylcellulose 0.01 mg/mg ophthalmic gel (20 sources) Start: 11-13-2017 End: 07-05-2022 Carboxymethylcellulose Sodium 15 ML drops, liquid gel Discontinued 1 APPLICATIO OP AT BEDTIME November 13, 2017 12:00am July 05, 2022 9:07am DRY EYES cephalexin 500 mg oral capsule (16 sources) Cephalosporin Antibacterial Start: 01-24-2023 End: 03-06-2023 take 1 capsule by mouth three times daily Cephalexin 500 mg capsule Discontinued 500 mg PO THREE TIMES A DAY 21 0 January 24, 2023 12:00am March 06, 2023 3:28pm clopidogrel 75 mg oral tablet (20 sources) [id number] Platelet Inhibitor Start: 03-13-2015 End: 03-19-2025 take 1 tablet by mouth at bedtime Clopidogrel 75 MG tablet Discontinued 75 mg PO AT BEDTIME March 13, 2015 12:00am October 24, 2024 10:22pm BLOOD THINNER Comment on above: Take 75 mg by mouth once daily. clotrimazole 0.01 mg/mg topical ointment (20 sources) Azole Antifungal Start: 08-18-2021 End: 09-15-2021 Clotrimazole 1 % ointment Discontinued 1 NMA TOPICAL TWICE A DAY 56.7 28 0 August 18, 2021 1:00am September 14, 2021 1:00am September 15, 2021 1:03am colestipol hydrochloride 1000 mg oral tablet (20 sources) Bile Acid Sequestrant Start: 10-17-2022 End: 11-15-2023 Colestipol 1 gram tablet Discontinued 1 g [...] 8 mg, INTRAVENOUS, ONCE, 1 dose, On Sat10/16/24 at 1000, Administer over 5 minutes. Start: [...] capsule (20 sources) Anticholinergic Start: 12-27-2023 End: 03-16-2025 take 1 capsule by mouth three times daily as needed for pain Dicyclomine 10 mg capsule Discontinued 10 mg PO THREE TIMES A DAY as needed for for abdominal pain 90 3 January 25, 2025 4:24pm March 16, 2025 11:25am Start: 11-06-2023 End: 12-27-2023 take 1 tablet by mouth twice daily Dicyclomine 20 mg tablet Discontinued 20 mg PO TWICE A DAY 180 90 0 November 06, 2023 1:41pm February 03, 2024 12:00am December 27, 2023 1:16pm IBS Start: 11-21-2022 End: 03-19-2025 take 10 mg by mouth three times daily dicyclomine (BENTYL) 20 mg tablet Take 10 mg by mouth three times a day. 11/21/2022 03/19/2025 Discontinued Start: 11-21-2022 End: 10-22-2023 take 1 tablet [...] 25 mg by mouth daily at bedtime. diphenhydrAMINE-ma alox-lidocaine (BMX 1:1:1) 1:1:1 liqd (20 sources) Start: 10-12-2024 End: 03-19-2025 take 10 mL by mouth every four hours as needed diphenhydrAMINE-maalox -lidocaine (BMX 1:1:1) 1:1:1 liqd Indications: Stomatitis and mucositis Take 10 mL by mouth every 4 hours as needed. 300 mL 1 10/12/2024 03/19/2025 Discontinued Start: 10-12-2024 take 10 mL by mouth every four hours as needed [id number]-xgfzsg-mvhssjjuf (BMX 1: 1:1) 1:1:1 liqd Indications: Stomatitis and mucositis Take 10 mL by mouth every 4 hours as needed. 300 mL 1 10/12/2024 Active ergocalciferol 1.25 mg oral capsule (20 sources) Provitamin D2 Compound Start: 11-05-2022 End: 02-24-2025 Ergocalciferol (Vitamin D2) (Vitamin D2) 1,250 mcg (50,000 unit) Capsule Discontinued 1250 ug PO .EVERY OTHER WEEK November 05, 2022 12:00am February 24, 2025 2:20pm SUPPELEMNT Start: 11-05-2022 Ergocalciferol (Vitamin D2) (Vitamin D2) 1,250 mcg (50,000 unit) Capsule Active 1250 MCG PO WE November 05, 2022 12:00am Start: 11-13-2017 End: 07-05-2022 Ergocalciferol (Vitamin D2) 50,000 UNIT capsule Discontinued 31033 U PO MORALEZ November 13, 2017 12:00am July 05, 2022 9:07am SUPPLEMENT erythromycin 0.005 mg/mg ophthalmic ointment (20 sources) [...] 20 mg PO TWICE A DAY 28 January 24, 2020 12:00am August 15, 2022 11:26am fluconazole 150 mg oral tablet (11 sources) Azole Antifungal Start: 09-25-2024 End: 10-02-2024 Fluconazole 150 mg tablet Discontinued 150 mg PO Every 3 Days 3 0 September 25, 2024 1:00am March 7th, 2025 10:58am fluorouracil (ADRUCIL) 7,920 mg 158.4 mL [...] cream (20 sources) Corticosteroid Start: 024 End: Hydrocortisone 2.5 % cream with perineal applicator [...] twice daily. Hydrocortisone Acetate 25 mg suppository (11 sources) Start: 11-15-2023 End: 11-29-2023 Hydrocortisone Acetate 25 mg suppository Discontinued 25 mg RC TWICE A DAY 24 18 09November 15, 2023 12:00am November 29, 2023 1:29pm Start: 11-15-2023 End: 11-29-2023 Hydrocortisone Acetate 25 mg suppository Discontinued 25 mg RC TWICE A DAY 24 November 15, 2023 12:00am November 29, 2023 [...] Comment on above: Take 1 tablet by [facility] every 6 hours as needed. 10 ml [...] observation. loperamide hydrochloride 2 mg oral capsule (6 sources) Opioid Agonist Start: 01-14-2025 End: 02-02-2025 take 1 capsule by mouth every six hours as needed Loperamide (Imodium A-D) 2 mg capsule Discontinued 2 mg PO EVERY 6 HOURS as needed for loose stool 360 January 14, 2025 12:00am February 02, 2025 11:31am LORazepam 1 mg oral tablet (14 sources) Benzodiazepine Start: 07-24-2023 End: 11-15-2023 take 1 tablet by mouth once daily as needed for anxiety Lorazepam (Ativan) 1 mg tablet Discontinued 1 mg PO DAILY as needed for anxiety 3 0 July 24, 2023 1:00am November 15, 2023 7:31am lubiprostone 0.008 mg oral capsule (20 sources) Chloride Channel Activator Start: 12-27-2023 End: 09-02-2024 take 1 capsule by mouth twice daily as needed for constipation Lubiprostone 8 mcg capsule Discontinued 8 ug PO TWICE A DAY as needed for for constipation 60 3 January 26, 2024 2:03pm September 02, 2024 4:50pm mecobalamin 1 mg sublingual tablet (18 sources) Start: 12-06-2022 End: 03-16-2025 Mecobalamin (Vitamin B12) 1,000 mcg tablet,disintegr ating Discontinued 1000 ug SL AT BEDTIME December 06, 2022 12:00am March 16, 2025 10:35am SUPPLEMENT place tablet under tongue and allow to dissolve for at least30 secs before swallowing Start: 12-06-2022 Mecobalamin (V itamin B12) Active 1000 MCG SL DAILY December 06, 2022 12:00am place tablet under tongue and allow to dissolve for at least30 secs before swallowing methylPREDNISolone 4 mg oral tablet (20 sources) [...] Recorded weight), INTRAVENOUS, ONCE, 1 dose, On Sat10/05/24 at 1030, - SYRINGE - IV Push [...] Comment on above: Take 1 capsule by [facility] once daily. 2 ml ondansetron 2 mg/ml [...] above: Take 1 tablet by brielle th every 6 hours as needed for Nausea/Vomiting. oseltamivir 75 mg oral capsule (20 sources) Neuraminidase Inhibitor Start: 018 End: take 1 capsule by mouth every twelve [...] acute postprocedural pain Other acute postprocedural pain pantoprazole 40 mg delayed release oral tablet (20 sources) Proton Pump Inhibitor Start: 11-07-2022 End: 03-19-2025 take 1 tablet by mouth once daily pantoprazole DR (PROTONIX) 40 mg tablet Take 40 mg by mouth once daily. 12/05/2022 03/19/2025 Discontinued Comment on above: Take 40 mg by mouth once daily. polyethylene glycol 3350 03866 mg powder for oral solution (20 sources) [...] 2022 3:47pm follow directions for colonoscopy prep potassium chloride 10 meq extended release oral tablet (20 sources) Start: 10-19-2024 End: 03-19-2025 take 1 tablet by mouth twice daily potassium chloride (K-TAB) 10 mEq tablet Take 1 tablet by mouth two times a day. 60 tablet 2 10/19/2024 03/19/2025 Discontinued predniSONE 20 mg oral tablet (20 sources) Start: 02-27-2025 End: 03-16-2025 take 3 tablets by mouth once daily Prednisone 20 mg tablet Discontinued 60 mg PO DAILY 15 0 February 27, 2025 12:00am March 16, 2025 10:35am Start: 12-01-2024 End: 03-19-2025 take 1 tablet by mouth once daily predniSONE (DELTASONE) 5 mg tablet Take 1 tablet by mouth once daily. 21 tablet 12/01/2024 03/19/2025 Discontinued Start: 04-09-2019 End: 07-13-2022 take 1 tablet by mouth once daily Prednisone 50 mg tablet Discontinued 50 mg PO DAILY 5 April 09, 2019 12:00am July 13, 2022 [...] then 1/2 pill daily x 4 days. promethazine hydrochloride 25 mg oral tablet (20 sources) Phenothiazine Start: 10-08-2019 End: 03-16-2025 take 1 tablet by mouth every six hours as needed for nausea Promethazine 25 mg tablet Discontinued 25 mg PO EVERY 6 HOURS NEEDED as needed for Nausea 30 January 25, 2025 4:24pm February 02, 2025 11:42am Comment on above: Take 1 tablet by brielle every 6 hours as needed for nausea/vomiting. raNITIdine 150 mg oral tablet (20 sources) [...] Status: Ordered rifAXIMin 550 mg oral tablet (12 sources) Rifamycin Antibacterial Start: 09-25-2023 End: 10-09-2023 [...] on above: Take 1 tablet by brielle twice daily. sulfacetamide sodium 100 mg/ml ophthalmic [...] Both eyes while awake for 5 days ubidecarenone 30 mg oral capsule (20 sources) [...] [Acute bronchitis, unspecified] 11-13-2017 Episodic Anxiety disorders (9 sources) Mixed anxiety and depressive disorder; Translations: [Anxiety disorder, unspecified] Chronic Asthma (20 sources) Asthma; Translations: [Unspecified asthma, uncomplicated] Onset: 4 10-07-2015 Chronic Cancer of rectum and anus (20 sources) Malignant tumor of anus; Translations: [Malignant neoplasm of anus, unspecified] Onset: 5 09-15-2024 Chronic Cancer of rectum and anus (7 sources) History of malignant neoplasm of rectum; [...] 5 07-24-2021 Chronic Deficiency and other anemia (1 source) Iron deficiency anemia secondary to blood loss (chronic); Translations: [Iron 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 blood loss] Onset: 1 Chronic Deficiency and other anemia (20 sources) [...] without bleeding] 11-13-2017 Chronic E Codes: Fall (20 sources) Fall; Translations: [Unspecified fall, initial encounter] [...] fracture with routine healing] Episodic Immunity disorders (11 sources) Immunosuppression; Translations: [Immunodeficiency, unspecified] 09-02-2024 Chronic [...] other respiratory manifestations] 11-13-2017 Episodic Intracranial injury (12 sources) Concussion injury of brain; Translations: [Closed head injury with concussion] 10-19-2023 Episodic Joint disorders and dislocations; trauma-related (20 sources) Derangement of right knee; Translations: [Unspecified internal derangement of right knee] 11-15-2022 Chronic Malaise and fatigue (2 sources) Other malaise and fatigue; Translations: [Post-COVID chronic fatigue] Onset: 4 05-01-2021 Episodic Malignant neoplasm without specification of site (11 sources) Squamous cell carcinoma 10-03-2024 Chronic Mood disorders (20 sources) Depressive disorder; Translations: [Depression] Onset: 4 10-07-2015 Chronic Mycoses (20 sources) Tinea corporis; Translations: [Tinea corporis] 08-18-2021 Episodic Nausea and vomiting (20 sources) Nausea; Translations: [Nausea] 09-19-2022 Episodic Noninfectious gastroenteritis (20 sources) Gastroenteritis; Translations: [Noninfective gastroenteritis and colitis, unspecified] 05-26-2018 Episodic Nonspecific chest pain (20 sources) Chest discomfort; Translations: [Other chest pain] [...] fracture] Onset: 6 01-08-2017 Chronic Other aftercare (15 sources) Follow-up status; Translations: [Encounter for other [...] than malignant neoplasm] 12-07-2024 Episodic Other aftercare (7 sources) Long-term current use of anticoagulant; Translations: [correction (current) use of anticoagulants] 11-07-2024 Episodic Other circulatory disease (1 source) Peripherally inserted central venous catheter in situ 10-19-2024 Chronic Other circulatory disease (3 sources) Elevated blood-pressure reading without diagnosis of hypertension; Translations: [Elevated blood-pressure reading, without diagnosis of hypertension] 02-27-2025 Episodic Other connective tissue disease (20 sources) History [...] other site] Episodic Other connective tissue disease (20 sources) Pain in right lower limb; Translations: [Pain in right lower leg] 11-14-2022 Episodic Other connective tissue disease (4 sources) Pain in right lower leg; Translations: [Pain in limb] 11-14-2022 Episodic Other connective tissue disease (2 sources) Fibromyalgia; Translations: [Myalgia and myositis, unspecified] 12-17-2022 Episodic Other connective tissue disease (7 sources) Pain in buttock; Translations: [Myalgia, other site] 12-27-2024 Episodic Other diseases of bladder and urethra (1 source) Spasm of bladder; Translations: [Other specified disorders of bladder] 10-30-2024 Chronic Other endocrine disorders (4 sources) Hormone increase; Translations: [Endocrine disorder, unspecified] 10-22-2022 Episodic Other eye disorders (20 sources) Bilateral vitreous floaters; Translations: [Other vitreous opacities, bilateral] Onset: 6 08-25-2015 Chronic Other fractures (12 sources) Fracture of multiple ribs ; Translations: [Multiple fractures of ribs, unspecified side, initial encounter for closed fracture] 10-19-2023 Episodic Other gastrointestinal disorders (20 sources) Malabsorption - iron; Translations: [Intestinal malabsorption, unspecified] Onset: 5 03-18-2015 Chronic Other gastrointestinal disorders (15 sources) Irritable bowel syndrome; Translations: [Irritable bowel syndrome without diarrhea] 04-27-2024 Chronic Other gastrointestinal disorders (14 sources) Irritable bowel syndrome with diarrhea; Translations: [Irritable bowel syndrome with diarrhea] 01-14-2025 Chronic Other gastrointestinal disorders (3 sources) Irritable bowel syndrome with diarrhea; Translations: [Irritable bowel syndrome with diarrhea] Onset: 5 Chronic Other gastrointestinal disorders (20 sources) Diarrhea; Translations: [Diarrhea, unspecified] 09-19-2022 Episodic Other gastrointestinal disorders (17 sources) Diarrhea, unspecified; Translations: [Diarrhea] Onset: 5 09-19-2022 Episodic Other gastrointestinal disorders (15 sources) Dysphagia; Translations: [Dysphagia, unspecified] 03-10-2024 Episodic Comment on above: OCC Other injuries and conditions due to external causes (20 sources) Foreign body in conjunctival sac, left eye, initial encounter; Translations: [Foreign body of left conjunctival sac, initial encounter] 10-08-2019 Episodic Other injuries and conditions due to external causes (11 sources) H/O: fracture; Translations: [Personal history of (healed) traumatic fracture] 12-21-2023 Episodic Other injuries and conditions due to external causes (11 sources) Closed injury of head; Translations: [Unspecified injury of head, initial encounter] 06-14-2024 Episodic Other injuries and conditions due to external causes (5 sources) Contusion of rib; Translations: [Other specified injuries of thorax, initial encounter] 06-14-2024 Episodic Other nervous system disorders (1 source) Chronic pain syndrome; Translations: [Chronic pain syndrome] Onset: 2 Chronic Other nervous system disorders (20 sources) Piriformis syndrome; Translations: [Lesion of sciatic nerve, unspecified lower limb] Onset: 5 09-30-2014 Chronic Other nervous system disorders (16 sources) Acute postoperative pain; Translations: [Other acute postprocedural pain] 01-24-2023 Episodic Other non-epithelial cancer of skin (20 sources) Squamous cell carcinoma of skin of [...] on above: RESOLVED Pancreatic disorders (not diabetes) (15 sources) Pancreatic insufficiency; Translations: [Other specified diseases [...] postprocedural states] 01-25-2020 Episodic Residual codes; unclassified (20 sources) History of fundoplication; Translations: [Other specified postprocedural states] 10-09-2022 Episodic Residual codes; unclassified (1 source) Other amnesia; Translations: [Other amnesia] Onset: Episodic Residual codes; unclassified (1 source) Pain; [...] disc] Onset: 1 Resolved: 1 10-07-2015 Chronic Spondylosis; intervertebral disc disorders; other back problems (20 sources) Thoracic and lumbosacral neuritis; Translations: [Thoracic or lumbosacral neuritis or radiculitis, unspecified] Onset: 5 09-30-2014 Episodic Superficial injury; contusion (20 sources) Contusion of head; Translations: [Contusion of unspecified part of head, initial encounter] 10-19-2023 Episodic Unclassified (1 source) Blood Draw (CVAD) Onset: 5 Viral infection (12 sources) Disease caused by 2019-nCoV; Translations: [COVID-19] [...] 07-31-2019 Episodic Genitourinary symptoms and ill-defined conditions (13 sources) Increased frequency of urination; Translations: [Frequency of micturition] Onset: 5 09-24-2024 Episodic Joint disorders and dislocations; trauma-related (20 sources) Tear of meniscus of knee; Translations: [Unspecified tear of unspecified meniscus, current injury, right knee, initial encounter] Onset: 0 Resolved: 0 12-06-2022 Episodic Other aftercare (20 sources) Taking high risk medication; Translations: [Other [employer] (current) drug therapy] Onset: 0 12-01-2019 Episodic Other aftercare (1 source) Other [employer] (current) drug therapy; Translations: [High risk medication [...] Onset: 5 Resolved: 0 07-31-2019 Episodic Other injuries and conditions due to [...] Translations: [Insomnia, unspecified] Onset: 5 07-24-2021 Episodic Unclassified (2 sources) Patient encounter status 09-30-2024 Results Test Name Value Interpretation Reference Range Facility CBC W Auto Differential pane l (Bld)on 03-19-2025 Basophils (Bld) [#/Vol] 0.05 10*3/uL [facility] Basophils/100 WBC (Bld) 1.1 % C [facility] Differential cell count method Nom (Bld) Auto [facility] Eosinophils (Bld) [#/Vol] 0.19 10*3/uL [facility] Eosinophils/100 WBC (Bld) 4.0 % [facility] Erythrocyte distribution width (RBC) [Ratio] 14.3 % 11.5 - 15.0 % [facility] Hematocrit (Bld) [Volume fraction] 37.0 % 36.0 - 46.0 % [facility] Hemoglobin (Bld) [Mass/Vol] 11.6 g/dL 11.5 - 15.5 g/dL [facility] Immature granulocytes (Bld) [#/Vol] [facility] Immature granulocytes/100 WBC (Bld) 0.4 % [facility] Interpretation and review of laboratory results Abnormal [facility] Lymphocytes (Bld) [#/Vol] 0.45 10*3/uL Low [facility] Lymphocytes/100 WBC (Bld) 9.5 % [facility] MCH (RBC) [Entitic mass] 27.8 pg 26.0 - 34.0 pg [facility] MCHC (RBC) [Mass/Vol] 31.4 g/dL 30.5 - 36.0 g/dL [facility] MCV (RBC) [Entitic vol] 88.7 fL 80.0 - 100.0 fL [facility] Monocytes (Bld) [#/Vol] 0.53 10*3/uL [facility] Monocytes/100 WBC (Bld) 11.1 % C [facility] Neutrophils (Bld) [#/Vol] 3.52 10*3/uL [facility] Neutrophils/100 WBC (Bld) 73.9 % [facility] Nucleated RBC (Bld) [#/Vol] [facility] Nucleated RBC/100 WBC (Bld) [Ratio] 0.0 % /100 WBC [facility] Platelet mean volume (Bld) [Entitic vol] 10.3 fL 9.0 - 12.7 fL [facility] Platelets (Bld) [#/Vol] 210 10*3/uL [facility] RBC (Bld) [#/Vol] 4.17 10*6/uL 3.90 - 5.2 0 m/uL [facility] WBC (Bld) [#/Vol] 4.76 10*3/uL [facility] Basophils (Bld) [#/Vol] 0.05 10*3/uL Normal <0.11 [facility] Comment on above: Order Comment: Speci men Type: BLOOD SPECIMENOrdering Facility: [facility] Address: [address] [place] [address] Performed By: #### 5 7021-8 ####[facility] [id number] [place] [address] [place] Basophils/100 WBC (Bld) 1.1 % Normal [facility] Comment on above: Order Comment: Speci men Type: BLOOD SPECIMENOrdering Facility: [facility] Address: [address] [place] [address] Performed By: #### 5 7021-8 ####[facility] [id number] [place] [address] [place] Differential cell count method Nom (Bld) Auto Normal [facility] Comment on above: Order Comment: Speci men Type: BLOOD SPECIMENOrdering Facility: [facility] Address: [address] [place] [address] Performed By: #### 5 7021-8 ####[facility] [id number] [place] [address] [place] Eosinophils (Bld) [#/Vol] 0.19 10*3/uL Normal <0.46 [facility] Comment on above: Order Comment: Speci men Type: BLOOD SPECIMENOrdering Facility: [facility] Address: [address] [place] [address] Performed By: #### 5 7021-8 ####[facility] NINA [id number] [place] [address] [place] Eosinophils/100 WBC (Bld) 4.0 % Normal [facility] Comment on above: Order Comment: Speci men Type: BLOOD SPECIMENOrdering Facility: [facility] Address: [address] [place] [address] Performed By: #### 5 7021-8 ####[facility] ALYSSAPHOENIXNICOLE [id number] [place] [address] [place] Erythrocyte distribution width (RBC) [Ratio] 14.3 % Normal 11.5-15.0 [facility] Comment on above: Order Comment: Speci men Type: BLOOD SPECIMENOrdering Facility: [facility] Address: [address] [place] [address] Performed By: #### 5 7021-8 ####[facility] HOSPITALZEVTIFFANIA [id number] [place] [address] [place] Hematocrit (Bld) [Volume fraction] 37.0 % Normal 36.0-46.0 [facility] Comment on above: Order Comment: Speci men Type: BLOOD SPECIMENOrdering Facility: [facility] Address: [address] [place] [address] Performed By: #### 5 7021-8 ####[facility] HOS[facility]ITALNCLIA [id number] [place] [address] [place] Hemoglobin (Bld) [Mass/Vol] 11.6 g/dL Normal 11.5-15.5 [facility] Comment on above: Order Comment: Speci men Type: BLOOD SPECIMENOrdering Facility: [facility] Address: [address] [place] [address] Performed By: #### 5 7021-8 ####[facility] FLORIDAWNCLIA [id number] [place] [address] [place] Immature granulocytes (Bld) [#/Vol] 10*3/uL Normal <0.10 [facility] Comment on above: Order Comment: Speci men Type: BLOOD SPECIMENOrdering Facility: [facility] Address: [address] [place] [address] Performed By: #### 5 7021-8 ####[facility] [id number] [place] [address] [place] Immature granulocytes/100 WBC (Bld) 0.4 % Normal [facility] Comment on above: Order Comment: Speci men Type: BLOOD SPECIMENOrdering Facility: [facility] Address: [address] [place] [address] Performed By: #### 5 7021-8 ####[facility] [id number] [place] [address] [place] Lymphocytes (Bld) [#/Vol] 0.45 10*3/uL Low 1.00-4.00 [facility] Comment on above: Order Comment: Speci men Type: BLOOD SPECIMENOrdering Facility: [facility] Address: [address] [place] [address] Performed By: #### 5 7021-8 ####[facility] [id number] [place] [address] [place] Lymphocytes/100 WBC (Bld) 9.5 % Normal [facility] Comment on above: Order Comment: Speci men Type: BLOOD SPECIMENOrdering Facility: [facility] Address: [address] [place] [address] Performed By: #### 5 7021-8 ####[facility] [id number] [place] [address] [place] MCH (RBC) [Entitic mass] 27.8 pg Normal 26.0-34.0 [facility] Comment on above: Order Comment: Speci men Type: BLOOD SPECIMENOrdering Facility: [facility] Address: [address] [place] [address] Performed By: #### 5 7021-8 ####[facility]ITALNCTOOELE [facility] [id number] [place] [address] [place] MCHC (RBC) [Mass/Vol] 31.4 g/dL Normal 30.5-36.0 [facility] Comment on above: Order Comment: Speci men Type: BLOOD SPECIMENOrdering Facility: [facility] Address: [address] [place] [address] Performed By: #### 5 7021-8 ####[facility]ITALNCTOOELE [facility] [id number] [place] [address] [place] MCV (RBC) [Entitic vol] 88.7 fL Normal 80.0-100.0 C [facility] Comment on above: Order Comment: Speci men Type: BLOOD SPECIMENOrdering Facility: [facility] Address: [address] [place] [address] Performed By: #### 5 7021-8 ####[facility] [id number] [place] [address] [place] Monocytes (Bld) [#/Vol] 0.53 10*3/uL Normal <0.87 [facility] Comment on above: Order Comment: Speci men Type: BLOOD SPECIMENOrdering Facility: [facility] Address: [address] [place] [address] Performed By: #### 5 7021-8 ####[facility] HOSPITALNCLI [id number] [address] [place] Monocytes/100 WBC (Bld) 11.1 % Normal C [facility] Comment on above: Order Comment: Speci men Type: BLOOD SPECIMENOrdering Facility: [facility] Address: [address] [place] [address] Performed By: #### 5 7021-8 ####[facility] ALYSSAWNCLIA [id number] [place] [address] [place] Neutrophils (Bld) [#/Vol] 3.52 10*3/uL Normal 1.45-7.50 [facility] Comment on above: Order Comment: Speci men Type: BLOOD SPECIMENOrdering Facility: [facility] Address: [address] [place] [address] Performed By: #### 5 7021-8 ####[facility] HOS[facility]ITALNCLIA [id number] [place] [address] [place] Neutrophils/100 WBC (Bld) 73.9 % Normal [facility] Comment on above: Order Comment: Speci men Type: BLOOD SPECIMENOrdering Facility: [facility] Address: [address] [place] [address] Performed By: #### 5 7021-8 ####[facility] HOSPITALNCLIA [id number] [place] [address] [place] Nucleated RBC (Bld) [#/Vol] 10*3/uL Normal <0.01 [facility] Comment on above: Order Comment: Speci men Type: BLOOD SPECIMENOrdering Facility: [facility] Address: [address] [place] [address] Performed By: #### 5 7021-8 ####[facility] MILLWNCLIA [id number] [place] [address] [place] Nucleated RBC/100 WBC (Bld) [Ratio] 0.0 /100 WBC Normal [facility] Comment on above: Order Comment: Speci men Type: BLOOD SPECIMENOrdering Facility: [facility] Address: [address] [place] [address] Performed By: #### 5 7021-8 ####[facility] CENTERLIA [id number] [place] [address] [place] Platelet mean volume (Bld) [Entitic vol] 10.3 fL Normal 9.0-12.7 [facility] Comment on above: Order Comment: Speci men Type: BLOOD SPECIMENOrdering Facility: [facility] Address: [address] [place] [address] Performed By: #### 5 7021-8 ####[facility] ALYSSAALEJANDRINALIA [id number] [place] [address] [place] Platelets (Bld) [#/Vol] 210 10*3/uL Normal 150-400 [facility] Comment on above: Order Comment: Speci men Type: BLOOD SPECIMENOrdering Facility: [facility] Address: [address] [place] [address] Performed By: #### 5 7021-8 ####[facility] HOSPITALZEVLIA [id number] [place] [address] [place] RBC (Bld) [#/Vol] 4.17 10*6/uL Normal 3.90-5.20 [facility] Comment on above: Order Comment: Speci men Type: BLOOD SPECIMENOrdering Facility: [facility] Address: [address] [place] [address] Performed By: #### 5 7021-8 ####[facility] ALYSSAPHOENIXZEVLIA [id number] [place] [address] [place] WBC (Bld) [#/Vol] 4.76 10*3/uL Normal 3.70-11.00 [facility] Comment on above: Order Comment: Speci men Type: BLOOD SPECIMENOrdering Facility: [facility] Address: [address] [place] [address] Performed By: #### 5 7021-8 ####[facility] HOSPITALNCLIA [id number] [place] [address] [place] CNOVSPon 03-19-2025 CNOVSP Normal [facility] CNPNon 03-19-2025 CNPN Normal [facility] Gastroenterology Visit Repor ton 03-16-2025 Gastroenterology Visit Report [facility] Gastroenterology [address] [place] [address] OFFICE VISIT Date of Service: 03/16/25 MR#: [id number] Acct: [id number] Name: MARIMAR WANG Rep #: [id number] : 1960 Provider: SINAI arriaza Age/Sex: 64/F [facility] Status: Signed Intake Vital Signs 02/02/25 11:01 03/02/25 08:37 03/16/25 10:37 Height 5 ft 2 in 5 ft 2.5 in 5 ft 2 in Weight: 171 lb 6 oz BMI 31.3 BP 127/81 H Respiration 18 Pulse 72 Temp 97.9 F Temp Source Temporal Pulse Oximetry (%) 98 Oxygen Delivery Method room air Intake Visit Reasons: 6 wk FU Chief Complaint: follow-up of ongoing diarrhea Certified Hyperbaric Technician Required: No Accompanied by: Self Is patient in pain?: No Allergies doxycycline calcium (From Vibramycin) Allergy (Verified 03/16/25 10:33) Anaphylaxis doxycycline hyclate (From Vibramycin) Allergy (Verified 03/16/25 10:33) Anaphylaxis doxycycline monohydrate (From Vibramycin) Allergy (Verified 03/16/25 10:33) Anaphylaxis NSAIDS (Non-Steroidal Anti-Inflamma Allergy (Verified 03/16/25 10:33) Anaphylaxis duloxetine (From Cymbalta) Adverse Reaction (Verified 03/16/25 10:33) HEADACHE AND UPSET STOMACH hydrocodone bitartrate (From Vicodin) Adverse Reaction (Verified 03/16/25 10:33) STOMACH UPSET hydromorphone HCl (From Dilaudid) Adverse Reaction (Verified 03/16/25 10:33) Vomiting morphine Adverse Reaction (Verified 03/16/25 10:33) Vomiting Medications ???Medication ???Instructions ???Recorded ???Confirmed ???Type albuterol sulfate 90 mcg/actuation 2 puff inhalation Q4H PRN PRN 03/16/25 History aerosol inhaler Shortness Of Breath fluoxetine 20 mg capsule 60 mg PO QHS MENTAL HEALTH 6 03/16/25 History peg [id number]-kcoihgp n 1 1 drp OP 4X/DAY DRY EYES 11/13/17 03/16/25 History %-0.2 %-0.2 % eye drops (Dry Eye Relief) leflunomide 20 mg tablet (Arava) 20 mg PO QHS RA 03/22/18 03/16/25 History amlodipine 5 mg tablet 7.5 mg PO QHS BP 08/15/22 03/16/25 History mometasone 50 mcg/actuation nasal 2 spray intranasal .QAM ALLERGIES 08/15/22 03/16/25 History spray abatacept 50 mg/0.4 mL 50 mg subcut QMONTH RA 12/17/22 History subcutaneous syringe (Orencia) acetaminophen 500 mg tablet 1,000 mg PO Q6H PRN fever or pain 11/15/23 03/16/25 History atorvastatin 80 mg tablet 80 mg PO QHS 11/15/23 03/16/25 His tory meclizine 25 mg tablet 25 mg PO DAILY PRN PRN dizziness 0 03/17/24 03/16/25 History bupropion HCl (smoking deter) 150 150 mg PO QHS 09/02/24 03/16/25 H istory mg tablet,12 hr sustained-release(smokin g deterrent) apixaban 5 mg (74 tabs) tablets in 10 mg PO Q12H 10/24/24 03/16/25 History a dose pack (Eliquis DVT-PE Treat 30D Start) cholecalciferol (vitamin D3) 1,250 1,250 mcg PO Q14D 10/24/2403/16 History mcg (50,000 unit) capsule furosemide 20 mg tablet 20 mg PO DAILY 10/24/24 03/16/25 H istory alprazolam 1 mg tablet 1 mg PO TID 30 days #90 tabs 12/0203/16/25 Rx diphenoxylate-atropine 2.5 1 tab PO TID PRN diarrhea #90 tabs 02/02/25 03/16/25 Rx mg-0.025 mg tablet (Lomotil) tramadol 50 mg tablet 50 mg PO Q6H PRN PRN pain 02/24/25 03/16/25 History prochlorperazine maleate 10 mg 10 mg PO TID PRN nausea and 03/16/25 Rx tablet (Compazine) vomiting #30 tabs Have you fallen in the past year?: Yes Nurse's Note: Can't keep food down, it either comes up or runs back out. [facility] Medical History (Updated 03/16/25 @ 14:44 by Michelle Baker NP-C) Pancreatic insufficiency Crohn disease Cancer Walker as ambulation aid DVT (deep [...] spondylosis Osteoporosis Congenital cataract Intermittent palpitations Nausea (more content not included)... Normal [facility] Flex Sigmoidoscopy Reporton 03-02-2025 Flex Sigmoidoscopy Report [facility] Medical Records Department [address] [place] [address] Flex Sigmoidoscopy Report MR#: [id number] Acct: [id number] Name: MARIMAR WANG Rep #: [id number] : 1960 64 From: Kenya Garcia MD PCP: Julio Arriaga NP-C Status[place] Patient Name: Marimar Wang Procedure Date: 03/02/2025 10:02 AM Date of : 1960 Age: 64 Procedure: Flexible Sigmoidoscopy Indications: High risk colon cancer surveillance: Personal history of anal cancer Providers: Kenya Garcia MD Referring MD: Kenya Garcia MD Medicines: Monitored Anesthesia Care Patient Profile: Refer to note in patient chart for documentation of history and physical. Complications: No immediate complications. Estimated blood loss: Minimal. Procedure: Pre-Anesthesia Assessment: - Prior to the procedure, a History and Physical was performed, and patient medications and allergies were reviewed. The patient's tolerance of previous anesthesia was also reviewed. The risks and benefits of the procedure and the sedation options and risks were discussed with the patient. All questions were answered, and informed consent was obtained. Prior Anticoagulants: The patient has taken no anticoagulant or antiplatelet agents. ASA Grade Assessment: II - A patient with mild systemic disease. After reviewing the risks and benefits, the patient was deemed in satisfactory condition to undergo the procedure. After obtaining informed consent, the endoscope was passed under direct vision. Throughout the procedure, the patient's blood pressure, pulse, and oxygen saturations were monitored continuously. The was introduced through the anus and advanced to the rectosigmoid junction. The flexible sigmoidoscopy was accomplished without difficulty. The patient tolerated the procedure well. The quality of the bowel preparation was fair. Moderate Sedation: See the other procedure note for documentation of moderate sedation with intraservice time. Scope In: 10:27:27 AM Scope Out: 10:37:48 AM Total Procedure Duration Time 0 hours 10 minutes 21 seconds Findings: The digital rectal exam was normal. Pertinent negatives include no anal lesion or abnormality. The entire examined colon appeared normal. The anus at site of previous mass was biopsied with a cold forceps for histology. Verification of patient identification for the specimen was done by the nurse using the patient's name, date and medical record number. Estimated blood loss was minimal. Impression: - Preparation of the colon was fair. - The entire examined colon is normal. Biopsied. Procedure Code(s): --- Professional --- 58983, 52, Sigmoidoscopy, flexible; with biopsy, single or multiple Diagnosis Code(s): --- Professional --- Z85.048, Personal history of other malignant neoplasm of rectum, rectosigmoid junction, and anus CPT copyright 2021 [employer]. All rights reserved. The codes documented in this report are preliminary and upon junior web designer review may be revised to meet current compliance requirements. Kenya Garcia MD 03/02/2025 10:43:59 AM This report has been signed electronically. Number of Addenda: 0 Note Initiated On: 03/02/2025 10:02 AM 03/02/25 104 Date Kenya Garcia MD Cosigner Signature: Date (if indicated) CC: SINAI Arriaga; Dr. Kenya Garcia MD Date Dictated: 03/02/25 1002 Date Transcribed: Pumping Plant Operator: SHILPA Pineda [facility] Medical Records Department [address] [place] [address] Provation Physician Letter MR#: [id number] Acct: [id number] Name: MARIMAR WANG Rep #: [id number] : 1960 64 From: Kenya Garcia MD PCP: SINAI Arriola [place] 03/02/2025 [facility] Arriola Re : Flexible Sigmoidoscopy procedure for Marimar Wang Dear Corina This procedure was performed on Sunday, March 02, 2025. My impressions and recommendations are as follows: Impressions : - Preparation of the colon was fair. - The entire examined colon is normal. Biopsied. Recommendations : My findings are described in the full procedure note, which is enclosed. If I can be of further assistance, please feel free to contact me at . Sincerely, Kenya Garcia MD 03/02/2025 10:43:59 AM This report has been signed electronically. 03/02/25 104 Date Kenya Garcia MD Cosigner Signature: Date (if indicated) CC: 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-C Julio Arriaga; Dr. Kenya Garcia MD Date Dictated: 03/02/251001 Date Transcribed: Pumping Plant Operator: SW Signed [facility] MR/POSTOP.ANE 03-02-2025 MR/POSTOP.[facility] Medical Records Department [address] [place] [address] Anesthesia Postop Eval I 03/02/251044 MR#: [id number] Acct: [id number] Name: TIMMYJODIMalenaMARIMAR Rep #: [id number] : 1960 64 From: Quang Hagen CRNA PCP: SINAI Arriola Status:[facility] Y Race: C Location: [place] [address] Anesthesia: Postop Eval I Current Vital Signs Temperature: 97 F Pulse Rate: 78 Blood Pressure: 107/64 Respiratory Rate: 16 Pulse Ox: 96 Assessment Airway patent: Yes Spontaneous unlabored respirations: Yes nausea: No Vomiting: No Anesthesia Complication: No Fluid Hydration Crystalloid volume administer (ml): 300 Total IV fluid infused: 300 Progress Note Anesthesia document: Postop Eval 1 completed: Yes 03/02/251044 Date uQang Hagen CAMP MANAGER Cosigner Signature: Date CC: Signed [facility] MR/[id number] 03-02-2025 MR/POSTOPAN2 [facility] Medical Records Department [address] [place] [address] Anesthesia Postop Eval II 03/02/252015 MR#: [id number] Acct: [id number] Name: MARIMAR WANG Rep #: [id number] : 1960 64 From: Nikita Aguiar MD PCP: Julio Arriaga, 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-C Status:[facility] Y Race: C Location: EN Anesthesia Postop Eval I Sum Postop Eval Completion status Anesthesia document: Postop Eval 1 completed: Yes Anesthesia Postop Eval I Summary Anesthesia Postop Eval I Summary: Anesthesia Postop Eval I: Assessment Summary Airway patent Yes 03/02/25 10:45 CAMP MANAGER.TNES Spontaneous unlabored Yes 03/02/25 10:45 CAMP MANAGER.TNES respirations Mental status nausea No 03/02/25 10:45 CAMP MANAGER.TNES Vomiting No 03/02/25 10:45 CAMP MANAGER.TNES Anesthesia Postop Eval I: Fluid Summary Crystalloid volume administer 300 03/02/25 10:45 CAMP MANAGER.TNES (ml) Colloids volume administered ( ml) Blood Product volume administered (ml) Total IV fluid infused 300 03/02/25 10:45 CAMP MANAGER.TNES Anesthesia Postop Eval I: Summary Notes Anesthesia Complication No 03/02/25 10:45 CAMP MANAGER.TNES Anesthesia Complication Comment: Post-operative progress note Anesthesia: Postop Eval II Evaluation Mental status: Awake and Calm Pain Level: 1 nausea: No Vomiting: No Complications Anesthesia Complication: No 03/02/252015 Date Nikita Aguiar [facility] Signature: Date CC: Signed Normal [facility] Surgery Specimen Level Nubia 03-02-2025 Surgery Specimen Level IV Patient Age/Sex Location Account Attending Physician MARIMAR WANG 64/F EN [id number] Dr. Kenya Garcia MD Specimen: [id number] Received: 03/02/25 Status: SAMREEN Aparicio Num: [id number] Spec Type: COLON BX Subm Dr: Dr. 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 Anus, biopsy: - Benign squamous mucosa with hyperkeratosis. - Negative for malignancy. MICROSCOPIC DESCRIPTION Slides are reviewed. GROSS DESCRIPTION A. Received in fixative is one container labeled with the patient's name and designated Anus biopsy. The specimen consists of three irregular fragments of light akhtar soft tissue that measure 0.3 to 0.6 cm. The specimen is totally submitted in one cassette. CPT:18766 Patient Age/Sex Location Account Attending Physician MARIMAR WANG 64/F EN [id number] Dr. Kenya Garcia MD Signed (signature on file) Dr. Lizzie Coelho MD 03/05/25 1420 Normal [facility] Comment on above: Performed By: #### L 499.0042 #### [facility] Laboratory [facility] [address] [place], [place], [address] Emergency Department Summary on 02-27-2025 Emergency Department Summary [facility] Medical Records Department [address] [place] [address] Emergency Department Summary 02/27/25 MR#: [id number] Acct: [id number] Name: MARIMAR WANG Rep #: [id number] : 1960 64 From: Pawel Cason MD PCP: STEFANO ArriolaC Status:REG ER Location: ED HPI History of Present Illness Chief Complaint: Lower Extremity Injury Detail of Chief Complaint: Pain left buttocks area Informant: patient Onset/Context/Timing Onset: Weeks Context: Gradual Onset Timing: Continuous Quality: Pain Location: Left SI region Current Severity: Mild Maximum Severity: Severe Worsened by: Pressure, certain movements Relieved by: Nothing Associated Symptoms Associated Symptoms: None Narrative Narrative: Patient is a 64-year-old woman. She had images of her left hip pelvis October of this year. 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 The films were reviewed. There is inflammation. She had a CT of the pelvis which revealed no acute abnormality. I believe there is some inflammation of the SI joint on the left as well. Patient denies dysuria, frequency, urgency or hematuria. Patient denies change in caliber, color or consistency of her stool. Patient denies vaginal symptoms. There is no history of trauma. She has not noted a rash or bruising. She is on no anticoagulant. She is presently taking 2 tramadol tablets every 8 hours without any improvement. She denies radicular pain. Denies foot drop. Buckling of her knees. She denies any recent orthopedic procedure or dental procedure. Prior similar symptoms: Yes Recent Illness/Hospitalization: No PFSH PFSH Medical History Cancer Walker as ambulation aid DVT (deep [...] QHS MENTAL HEALTH 6 09/01/24 History peg 035-gcqylibzzeme-bwqozal n 1 1 drp OP 4X/DAY DRY EYES 11/13/17 03/19/24 History %-0.2 %-0.2 % eye drops (Dry Eye Relief) leflunomide 20 mg tablet (Arava) 20 mg PO QHS RA 03/22/18 09/01/24 History amlodipine 5 mg tablet 7.5 mg PO QHS BP 08/15/22 09/01/24 History mometasone 50 mcg/actuation nasal 2 spray intranasal .QAM ALLERGIES 08/15/22 09/01/24 History spray mecobalamin (vitamin B12) 1,000 1,000 mcg sublingual QHS SUPPLEMEN T 12/06/22 09/01/24 History mcg disintegrating tablet,sublingual abatacept 50 mg/0.4 mL 50 mg subcut QMONTH RA 12/17/22 History subcutaneous syringe (Orencia) acetaminophen 500 mg tablet 1,000 mg PO Q6H PRN fever or pain 11/15/23 09/01/24 History atorvastatin 80 mg tablet 80 mg PO QHS 11/15/23 09/01/24 His tory meclizine 25 mg tablet 25 mg PO DAILY PRN PRN dizziness 0 03/17/24 Unknown History bupropion HCl (smoking deter) 150 150 mg PO QHS 09/02/24 09/01/24 H istory mg tablet,12 hr sustained-release(smokin g deterrent) apixaban 5 mg (74 tabs) tablets in 10 mg PO Q12H 10/24/24 Unknown H istory a dose pack (Eliquis DVT-PE Treat 30D Start) cholecalciferol (vitamin D3) 1,250 1,250 mcg PO Q14D 10/24/24 Unkno wn History mcg (50,000 (more content not included)... 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 Hx Hospitalization Yes: AUG 2024, ANAL CANCER [...] take am of surgery PONV PONV - 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: PONV - 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 Female Yes 02/24/25 14:24 HX of Motion [...] 02/09/25 09:46 Respiratory Assessment Respiratory Assessment - 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: Respiratory Tract Infection Hx - 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 Hx Respiratory Tract Infection No 02/24/25 14:24 STOP Sleep Apnea STOP Sleep Apnea - 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: STOP Sleep Apnea - 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 Hx Hypertension Yes 02/24/25 14:24 Hx Sleep [...] 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 Tobacco Use Smoking Status Former smoker 02/24/25 14:24 Hx Tobacco Use No 02/24/25 14:24 Years Smoking Packs Smoked per Day Smoking Cessation Date was Yes - quit smoking within 15 02/24/25 14:24 within the last 15 years years Hx Smoking Cessation Date 12/27/13 02/24/25 14:24 Hx Smoking Cessation No 02/24/25 14:24 Counseling Hematologic Medial History Hematologic Hx - 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 Specify any problems Hx of Preganancy in last 3 No 02/24/25 14:24 Months Nurse Filling Out Transfusion [facility] 02/24/25 14:24 Questions: Date: 02/24/25 02/24/25 14:24 Time: 14:37 02/24/25 14:24 Patient unable to answer at this time (ie. 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 Normal [facility] CNPNon 02-17-2025 CNPN Normal [facility] CNPNon 02-15-2025 CNPN Normal [facility] CNPNon 02-12-2025 CNPN Normal [facility] CNPNon 02-09-2025 CNPN Normal [facility] Surgery Visit Reporton 02-09 Surgery Visit Report [facility] [address] [place] [address] OFFICE VISIT Date of Service: 02/09/25 MR#: [id number] Acct: [id number] Name: MARIMAR WANG Rep #: [id number] : 1960 Provider: Dr. Kenya fuentes MD Age/Sex: 64/F Location: [facility] Status: Signed Intake Vital Signs [...] QHS MENTAL HEALTH 6 02/09/25 History peg 667-zhdvhvtlypvf-hrycnzg n 1 1 drp OP 4X/DAY DRY [...] Q12H 10/24/24 02/09/25 History a dose pack (Lekiosque.fr DVT-PE Treat 30D Start) cholecalciferol (vitamin D3) [...] you fallen in the past year?: No [facility] Medical History Squamous cell [...] bipolar pros (more content not included)... Normal [facility] Gastroenterology Visit Repor ton 02-02-2025 Gastroenterology Visit Report [facility] Gastroenterology [address] [place] [address] OFFICE VISIT Date of Service: 02/02/25 MR#: [id number] Acct: [id number] Name: MARIMAR WANG Rep #: [id number] : 1960 Provider: SINAI arriaza Age/Sex: 64/F Location: [facility] Status: Signed Intake Vital Signs 01/14/25 [...] QHS MENTAL HEALTH 6 02/02/25 History peg 983-gkyudgyiquic-vkoknms n 1 1 drp OP 4X/DAY DRY [...] bipolar pro (more content not included)... Normal [facility] CBC W Auto Differential pane l (Bld)on 02-01-2025 Basophils (Bld) [#/Vol] 0.05 10*3/uL [facility] Basophils/100 WBC (Bld) 1.1 % C [facility] Differential cell count method Nom (Bld) Auto [facility] Eosinophils (Bld) [#/Vol] 0.2 10*3/uL [facility] Eosinophils/100 WBC (Bld) 4.4 % [facility] Erythrocyte distribution width (RBC) [Ratio] 14.1 % 11.5 - 15.0 % [facility] Hematocrit (Bld) [Volume fraction] 34.2 % Low 36.0 - 46.0 % [facility] Hemoglobin (Bld) [Mass/Vol] 10.9 g/dL Low 11.5 - 15.5 g/dL [facility] Immature granulocytes (Bld) [#/Vol] [facility] Immature granulocytes/100 WBC (Bld) 0.4 % [facility] Interpretation and review of laboratory results Abnormal [facility] Lymphocytes (Bld) [#/Vol] 0.39 10*3/uL Low [facility] Lymphocytes/100 WBC (Bld) 8.6 % [facility] MCH (RBC) [Entitic mass] 29.2 pg 26.0 - 34.0 pg [facility] MCHC (RBC) [Mass/Vol] 31.9 g/dL 30.5 - 36.0 g/dL [facility] MCV (RBC) [Entitic vol] 91.7 fL 80.0 - 100.0 fL [facility] Monocytes (Bld) [#/Vol] 0.51 10*3/uL [facility] Monocytes/100 WBC (Bld) 11.2 % C [facility] Neutrophils (Bld) [#/Vol] 3.39 10*3/uL [facility] Neutrophils/100 WBC (Bld) 74.3 % [facility] Nucleated RBC (Bld) [#/Vol] [facility] Nucleated RBC/100 WBC (Bld) [Ratio] 0 % /100 WBC [facility] Platelet mean volume (Bld) [Entitic vol] 10.4 fL 9.0 - 12.7 fL [facility] Platelets (Bld) [#/Vol] 202 10*3/uL [facility] RBC (Bld) [#/Vol] 3.73 10*6/uL Low 3.90 - 5.2 0 m/uL [facility] WBC (Bld) [#/Vol] 4.56 10*3/uL [facility] Basophils (Bld) [#/Vol] 0.05 10*3/uL Normal <0.11 [facility] Comment on above: Order Comment: Speci men Type: BLOOD SPECIMENOrdering Facility: [facility] Address: [address] [place] [address] Performed By: #### 5 7021-8 ####[facility]ITALA [id number] [place] [address] [place] Basophils/100 WBC (Bld) 1.1 % Normal [facility]Formerly [facility] Comment on above: Order Comment: Speci men Type: BLOOD SPECIMENOrdering Facility: [facility] Address: [address] [place] [address] Performed By: #### 5 7021-8 ####[facility] [id number] [place] [address] [place] Differential cell count method Nom (Bld) Auto Normal [facility] Comment on above: Order Comment: Speci men Type: BLOOD SPECIMENOrdering Facility: [facility] Address: [address] [place] [address] Performed By: #### 5 7021-8 ####[facility] HOSPITALNCLIA [id number] [place] [address] [place] Eosinophils (Bld) [#/Vol] 0.20 10*3/uL Normal <0.46 [facility] Comment on above: Order Comment: Speci men Type: BLOOD SPECIMENOrdering Facility: [facility] Address: [address] [place] [address] Performed By: #### 5 7021-8 ####[facility] SERVICESKAREEMA [id number] [place] [address] [place] Eosinophils/100 WBC (Bld) 4.4 % Normal [facility] Comment on above: Order Comment: Speci men Type: BLOOD SPECIMENOrdering Facility: [facility] Address: [address] [place] [address] Performed By: #### 5 7021-8 ####[facility] HOSPITALZEVBLAKE [id number] [place] [address] [place] Erythrocyte distribution width (RBC) [Ratio] 14.1 % Normal 11.5-15.0 [facility] Comment on above: Order Comment: Speci men Type: BLOOD SPECIMENOrdering Facility: [facility] Address: [address] [place] [address] Performed By: #### 5 7021-8 ####[facility] HOSPITALNCTOOELE VALLEY [facility] [id number] [place] [address] [place] Hematocrit (Bld) [Volume fraction] 34.2 % Low 36.0-46.0 [facility] Comment on above: Order Comment: Speci men Type: BLOOD SPECIMENOrdering Facility: [facility] Address: [address] [place] [address] Performed By: #### 5 7021-8 ####[facility] HOSPITALNCLIA [id number] [place] [address] [place] Hemoglobin (Bld) [Mass/Vol] 10.9 g/dL Low 11.5-15.5 [facility] Comment on above: Order Comment: Speci men Type: BLOOD SPECIMENOrdering Facility: [facility] Address: [address] [place] [address] Performed By: #### 5 7021-8 ####[facility] HOSPITALNCLIA [id number] [place] [address] [place] Immature granulocytes (Bld) [#/Vol] 10*3/uL Normal <0.10 [facility] Comment on above: Order Comment: Speci men Type: BLOOD SPECIMENOrdering Facility: [facility] Address: [address] [place] [address] Performed By: #### 5 7021-8 ####[facility] HOSPITALNCTOOELE VALLEY [facility] [id number] [place] [address] [place] Immature granulocytes/100 WBC (Bld) 0.4 % Normal [facility] Comment on above: Order Comment: Speci men Type: BLOOD SPECIMENOrdering Facility: [facility] Address: [address] [place] [address] Performed By: #### 5 7021-8 ####[facility] [id number] [place] [address] [place] Lymphocytes (Bld) [#/Vol] 0.39 10*3/uL Low 1.00-4.00 [facility] Comment on above: Order Comment: Speci men Type: BLOOD SPECIMENOrdering Facility: [facility] Address: [address] [place] [address] Performed By: #### 5 7021-8 ####[facility] [id number] [address] [place] Lymphocytes/100 WBC (Bld) 8.6 % Normal [facility] Comment on above: Order Comment: Speci men Type: BLOOD SPECIMENOrdering Facility: [facility] Address: [address] [place] [address] Performed By: #### 5 7021-8 ####[facility] [id number] [place] [address] [place] MCH (RBC) [Entitic mass] 29.2 pg Normal 26.0-34.0 [facility] Comment on above: Order Comment: Speci men Type: BLOOD SPECIMENOrdering Facility: [facility] Address: [address] [place] [address] Performed By: #### 5 7021-8 ####[facility] NABILNCLIA [id number] [place] [address] [place] MCHC (RBC) [Mass/Vol] 31.9 g/dL Normal 30.5-36.0 [facility] Comment on above: Order Comment: Speci men Type: BLOOD SPECIMENOrdering Facility: [facility] Address: [address] [place] [address] Performed By: #### 5 7021-8 ####[facility]S HOSPITALNCLIA [id number] [place] [address] [place] MCV (RBC) [Entitic vol] 91.7 fL Normal 80.0-100.0 [facility] Comment on above: Order Comment: Speci men Type: BLOOD SPECIMENOrdering Facility: [facility] Address: [address] [place] [address] Performed By: #### 5 7021-8 ####[facility] HOSPITALNCLIA [id number] [place] [address] [place] Monocytes (Bld) [#/Vol] 0.51 10*3/uL Normal <0.87 [facility] Comment on above: Order Comment: Speci men Type: BLOOD SPECIMENOrdering Facility: [facility] Address: [address] [place] [address] Performed By: #### 5 7021-8 ####[facility] HOSPITALNCLIA [id number] [place] [address] [place] Monocytes/100 WBC (Bld) 11.2 % Normal [facility] Comment on above: Order Comment: Speci men Type: BLOOD SPECIMENOrdering Facility: [facility] Address: [address] [place] [address] Performed By: #### 5 7021-8 ####[facility]EN'S HOSPITALZEVLIA [id number] [place] [address] [place] Neutrophils (Bld) [#/Vol] 3.39 10*3/uL Normal 1.45-7.50 [facility] Comment on above: Order Comment: Speci men Type: BLOOD SPECIMENOrdering Facility: [facility] Address: [address] [place] [address] Performed By: #### 5 7021-8 ####[facility] MEDICAL CENTERLIA [id number] [place] [address] [place] Neutrophils/100 WBC (Bld) 74.3 % Normal [facility] Comment on above: Order Comment: Speci men Type: BLOOD SPECIMENOrdering Facility: [facility] Address: [address] [place] [address] Performed By: #### 5 7021-8 ####[facility] [id number] [place] [address] [place] Nucleated RBC (Bld) [#/Vol] 10*3/uL Normal <0.01 [facility] Comment on above: Order Comment: Speci men Type: BLOOD SPECIMENOrdering Facility: [facility] Address: [address] [place] [address] Performed By: #### 5 7021-8 ####[facility]A [id number] [place] [address] [place] Nucleated RBC/100 WBC (Bld) [Ratio] 0.0 /100 WBC Normal [facility] Comment on above: Order Comment: Speci men Type: BLOOD SPECIMENOrdering Facility: [facility] Address: [address] [place] [address] Performed By: #### 5 7021-8 ####[facility]EN'S HOSPITALNCLI [id number] [place] [address] [place] Platelet mean volume (Bld) [Entitic vol] 10.4 fL Normal 9.0-12.7 [facility] Comment on above: Order Comment: Speci men Type: BLOOD SPECIMENOrdering Facility: [facility] Address: [address] [place] [address] Performed By: #### 5 7021-8 ####[facility] HOSPITALNCLIA [id number] [place] [address] [place] Platelets (Bld) [#/Vol] 202 10*3/uL Normal 150-400 [facility] Comment on above: Order Comment: Speci men Type: BLOOD SPECIMENOrdering Facility: [facility] Address: [address] [place] [address] Performed By: #### 5 7021-8 ####[facility]EN[facility]S HOSPITALNCA [id number] [place] [address] [place] RBC (Bld) [#/Vol] 3.73 10*6/uL Low 3.90-5.20 [facility] Comment on above: Order Comment: Speci men Type: BLOOD SPECIMENOrdering Facility: [facility] Address: [address] [place] [address] Performed By: #### 5 7021-8 ####[facility]A [id number] [place] [address] [place] WBC (Bld) [#/Vol] 4.56 10*3/uL Normal 3.70-11.00 [facility] Comment on above: Order Comment: Speci men Type: BLOOD SPECIMENOrdering Facility: [facility] Address: [address] [place] [address] Performed By: #### 5 7021-8 ####[facility] HOSPITALNCLIA [id number] [place] [address] [place] Comprehensive metabolic 2000 panelOrdered By: Tala Mejia on 02-01-2025 Albumin [Mass/Vol] 3.6 g/dL Low 3.9 - 4.9 g/dL [facility] ALP [Catalytic activity/Vol] 85 U/L 34 - 123 U/L [facility] ALT [Catalytic activity/Vol] 8 U/L 7 - 38 U/L [facility] Anion gap [Moles/Vol] 13 mmol/L 8 - 15 mmol/L [facility] AST [Catalytic activity/Vol] 15 U/L 13 - 35 U/L [facility] Bilirubin [Mass/Vol] 0.2 mg/dL 0.2 - 1 .3 mg/dL [facility] Calcium [Mass/Vol] 8.8 mg/dL 8.5 - 10. 2 mg/dL [facility] Chloride [Moles/Vol] 101 mmol/L 98 - 10 7 mmol/L [facility] CO2 [Moles/Vol] 21 mmol/L Low 22 - 30 mmol/L [facility] Creatinine [Mass/Vol] 0.62 mg/dL 0.58 - 0.96 mg/dL [facility] GFR/1.73 sq M.predicted among non-blacks MDRD (S/P/Bld) [Vol rate/Area] 99 mL/min/{1.73_m2} - PINF [facility] Comment on above: Estimated Glomerular Filtration [...] [Mass/Vol] 92 mg/dL 74 - 99 mg/dL [facility] Comment on above: The [place] Di[employer] Association (ADA) provides guidance for [...] Standards of Medical Care in Diabetes 2016, [place] [employer]. Diabetes Care. 2016.39(Suppl 1). Interpretation and review of laboratory results Abnormal [facility] Potassium [Moles/Vol] 4.4 mmol/L 3.7 - 5.1 mmol/L [facility] Protein [Mass/Vol] 6.3 g/dL 6.3 - 8.0 g/dL [facility] Sodium [Moles/Vol] 135 mmol/L Low 136 - 144 mmol/L [facility] Urea nitrogen [Mass/Vol] 7 mg/dL 7 - 21 mg/dL [facility] Comprehensive metabolic 2000 panelon 02-01-2025 Albumin [Mass/Vol] 3.6 g/dL Low 3.9-4.9 [facility] Comment on above: Order Comment: Speci men Type: BLOOD SPECIMENOrdering Facility: [facility] Address: [address] [place] [address] Performed By: #### 2 4323-8 ####[facility] MILLWZEVLIA [id number] [address] [place] LABCLIA [id number] [place] [address] [place] ALP [Catalytic activity/Vol] 85 U/L Normal 34-123 [facility] Comment on above: Order Comment: Speci men Type: BLOOD SPECIMENOrdering Facility: [facility] Address: [address] [place] [address] Performed By: #### 2 4323-8 ####[facility] BE[facility] HEALTH SERVICESTOWNCLIA [id number] [address] [place] LABCLIA [id number] [place] [address] [place] ALT [Catalytic activity/Vol] 8 U/L Normal 7-38 [facility] Comment on above: Order Comment: Speci men Type: BLOOD SPECIMENOrdering Facility: [facility] Address: [address] [place] [address] Performed By: #### 2 4323-8 ####[facility] MILLWNCLIA [id number] [place], [place] [id number] [place] [address] OF AMERICAAKRON GENERAL [place] LABCLIA [id number] [place] [address] [place] Anion gap [Moles/Vol] 13 mmol/L Normal 8-15 [facility] Comment on above: Order Comment: Speci men Type: BLOOD SPECIMENOrdering Facility: [facility] Address: [address] [place] [address] Performed By: #### 2 4323-8 ####[facility] RIGOBERTO MILLTOWNCLIA [id number] [address] OF [facility] [place] LABCLIA [id number] [place] [address] [place] AST [Catalytic activity/Vol] 15 U/L Normal 13-35 [facility] Comment on above: Order Comment: Speci men Type: BLOOD SPECIMENOrdering Facility: [facility] Address: [address] [place] [address] Performed By: #### 2 4323-8 ####[facility] RIGOBERTO MILLTOWNCLIA [id number] [address] OF [facility] [place] LABCLIA [id number] [place] [address] [place] Bilirubin [Mass/Vol] 0.2 mg/dL Normal 0.2-1.3 [facility] Comment on above: Order Comment: Speci men Type: BLOOD SPECIMENOrdering Facility: [facility] Address: [address] [place], [place] [id number] Performed By: #### 2 4323-8 ####[facility] RIGOBERTO MILLTOWNCLIA [id number] [address] STATES OF AMERICAAKRON GENERAL [place] LABCLIA [id number] [place] [address] [place] Calcium [Mass/Vol] 8.8 mg/dL Normal 8.5-10.2 [facility] Comment on above: Order Comment: Speci men Type: BLOOD SPECIMENOrdering Facility: [facility] Address: [address] [place] [address] Performed By: #### 2 4323-8 ####[facility] RIGOBERTO MILLTOWNCLIA [id number] [place] [address] [facility] [place] LABCLIA [id number] [place] [facility] [place] [address] [place] Chloride [Moles/Vol] 101 mmol/L Normal 98-107 [facility] Comment on above: Order Comment: Speci men Type: BLOOD SPECIMENOrdering Facility: [facility] Address: [address] [place] [address] Performed By: #### 2 4323-8 ####[facility] RIGOBERTO MILLTOWNCLIA [id number] [place] [address] [facility] [place] LABCLIA [id number] [place] [facility] [place] [address] [place] CO2 [Moles/Vol] 21 mmol/L Low 22-30 [facility] Comment on above: Order Comment: Speci men Type: BLOOD SPECIMENOrdering Facility: [facility] Address: [address] [place] [address] Performed By: #### 2 4323-8 ####[facility] RIGOBERTO MILLTOWNCLIA [id number] [address] [facility] [place] LABCLIA [id number] YRIA [facility] [place] [address] [place] Creatinine [Mass/Vol] 0.62 mg/dL Normal 0.58-0.96 [facility] Comment on above: Order Comment: Speci men Type: BLOOD SPECIMENOrdering Facility: [facility] Address: [address] [place] [address] Performed By: #### 2 4323-8 ####[facility] RIGOBERTO MILLTOWNCLIA [id number] [address] LABCLIA [id number] [place] [id number] [place] [facility] Creatinine and Glomerular filtration rate.predicted panel (S/P/Bld) 99 mL/min/1.73m??? Normal >=60 [facility] Comment on above: Order Comment: Mindy mcfarlane Type: BLOOD SPECIMENOrdering Facility: [facility] Address: [address] [place] [address] Result Comment: Sonia mated Glomerular Filtration Rate [...] actual GFR. Performed By: #### 2 4323-8 ####[facility] [id number] [address] LABSOUTHWESTERN VER[facility] [id number] [place] [address] [place] Glucose [Mass/Vol] 92 mg/dL Normal 74-99 [facility] Comment on above: Order Comment: Mindy mcfarlane Type: BLOOD SPECIMENOrdering Facility: [facility] Address: [address] [place] [address] Result Comment: The [place] Diabetes Association (ADA) provides guidance for cutoff [...] Standards of Medical Care in Diabetes 2016, [place] [employer]. Diabetes Care. 2016.39(Suppl 1). Performed By: #### 2 4323-8 ####[facility] RIGOBERTO MILLTOWNCLIA [id number] [address] [place] LABCLIA [id number] [place] [address] [place] Potassium [Moles/Vol] 4.4 mmol/L Normal 3.7-5.1 [facility] Comment on above: Order Comment: Speci men Type: BLOOD SPECIMENOrdering Facility: [facility] Address: [address] [place] [address] Performed By: #### 2 4323-8 ####[facility] MILLTOWNCLIA [id number] [address] [place] LABCLIA [id number] [place] [address] [place] Protein [Mass/Vol] 6.3 g/dL Normal 6.3-8.0 [facility] Comment on above: Order Comment: Speci men Type: BLOOD SPECIMENOrdering Facility: [facility] Address: [address] [place] [address] Performed By: #### 2 4323-8 ####[facility] MILLTOWNCLIA [id number] [address] [place] LABCLIA [id number] [place] [address] [place] Sodium [Moles/Vol] 135 mmol/L Low 136-144 [facility] Comment on above: Order Comment: Speci men Type: BLOOD SPECIMENOrdering Facility: [facility] Address: [address] [place] [address] Performed By: #### 2 4323-8 ####[facility] MILLTOWNCLIA [id number] [address] [place] LABCLIA [id number] [place] [address] [place] Urea nitrogen [Mass/Vol] 7 mg/dL Normal 7-21 [facility] Comment on above: Order Comment: Speci men Type: BLOOD SPECIMENOrdering Facility: [facility] Address: [address] [place] [address] Performed By: #### 2 4323-8 ####[facility] RIGOBERTO [facility] HOSPITALLIA [id number] [place] [address] [place] [facility] [place] LABCLIA [id number] [place] [address] [place] MRI PELVIS WO/W IVCONon 07-0 MRI PELVIS WO/W IVCON Normal [facility] 25(OH)D3 SerPl-mCncon 2024 25-hydroxyvitamin D3 [Mass/Vol] 33.8 ng/mL Normal 31.0-80.0 [facility] Comment on above: Order Comment: Speci men Type: BLOOD SPECIMENOrdering Facility: External Submitter Address: , , Result Comment: Clas sification of 25 [place] Vitamin D status:Deficiency/Insufficiency: < or = 30 ng/ml.Sufficiency/Optimal Levels: 31-80 ng/mLToxicity: > 100 ng/mL.Test performed by chemiluminescent immunoassay. Performed By: #### 1 989-3 ####[facility] LABCLIA [id number] [address] [place] CBC W Auto Differential pane l (Bld)on 01-14-2025 Basophils (Bld) [#/Vol] 0.05 10*3/uL [facility] Basophils/100 WBC (Bld) 1 % [facility] Differential cell count method Nom (Bld) Auto [facility] Eosinophils (Bld) [#/Vol] 0.12 10*3/uL [facility] Eosinophils/100 WBC (Bld) 2.5 % [facility] Erythrocyte distribution width (RBC) [Ratio] 15.8 % High 11.5 - 15.0 % [facility] Hematocrit (Bld) [Volume fraction] 35.3 % Low 36.0 - 46.0 % [facility] Hemoglobin (Bld) [Mass/Vol] 11.3 g/dL Low 11.5 - 15.5 g/dL [facility] Immature granulocytes (Bld) [#/Vol] 0.03 10*3/uL [facility] Immature granulocytes/100 WBC (Bld) 0.6 % [facility] Interpretation and review of laboratory results Abnormal [facility] Lymphocytes (Bld) [#/Vol] 0.41 10*3/uL Low [facility] Lymphocytes/100 WBC (Bld) 8.4 % [facility] MCH (RBC) [Entitic mass] 29.1 pg 26.0 - 34.0 pg [facility] MCHC (RBC) [Mass/Vol] 32 g/dL 30.5 - 36.0 g/dL [facility] MCV (RBC) [Entitic vol] 91 fL 80.0 - 100.0 fL [facility] Monocytes (Bld) [#/Vol] 0.64 10*3/uL [facility] Monocytes/100 WBC (Bld) 13.2 % C [facility] Neutrophils (Bld) [#/Vol] 3.61 10*3/uL [facility] Neutrophils/100 WBC (Bld) 74.3 % [facility] Nucleated RBC (Bld) [#/Vol] [facility] Nucleated RBC/100 WBC (Bld) [Ratio] 0 % /100 WBC [facility] Platelet mean volume (Bld) [Entitic vol] 10.2 fL 9.0 - 12.7 fL [facility] Platelets (Bld) [#/Vol] 213 10*3/uL [facility] RBC (Bld) [#/Vol] 3.88 10*6/uL Low 3.90 - 5.2 0 m/uL [facility] WBC (Bld) [#/Vol] 4.86 10*3/uL [facility] Basophils (Bld) [#/Vol] 0.05 10*3/uL Normal <0.11 [facility] Comment on above: Order Comment: Speci men Type: BLOOD SPECIMENOrdering Facility: External Submitter Address: , , Performed By: #### 5 7021-8 ####[facility] [id number] [place] [address] [place] Basophils/100 WBC (Bld) 1.0 % Normal [facility] Comment on above: Order Comment: Speci men Type: BLOOD SPECIMENOrdering Facility: External Submitter Address: , , Performed By: #### 5 7021-8 ####[facility] [id number] [address] [place] Differential cell count method Nom (Bld) Auto Normal [facility] Comment on above: Order Comment: Speci men Type: BLOOD SPECIMENOrdering Facility: External Submitter Address: , , Performed By: #### 5 7021-8 ####[facility] [id number] [place] [address] [place] Eosinophils (Bld) [#/Vol] 0.12 10*3/uL Normal <0.46 [facility] Comment on above: Order Comment: Speci men Type: BLOOD SPECIMENOrdering Facility: External Submitter Address: , , Performed By: #### 5 7021-8 ####[facility] [id number] [address] [facility] Eosinophils/100 WBC (Bld) 2.5 % Normal [facility] Comment on above: Order Comment: Speci men Type: BLOOD SPECIMENOrdering Facility: External Submitter Address: , , Performed By: #### 5 7021-8 ####[facility] [id number] [place] [address] [place] Erythrocyte distribution width (RBC) [Ratio] 15.8 % High 11.5-15.0 [facility] Comment on above: Order Comment: Speci men Type: BLOOD SPECIMENOrdering Facility: External Submitter Address: , , Performed By: #### 5 7021-8 ####[facility] [id number] [place] [address] [place] Hematocrit (Bld) [Volume fraction] 35.3 % Low 36.0-46.0 [facility] Comment on above: Order Comment: Speci men Type: BLOOD SPECIMENOrdering Facility: External Submitter Address: , , Performed By: #### 5 7021-8 ####[facility] [id number] [place] [address] [place] Hemoglobin (Bld) [Mass/Vol] 11.3 g/dL Low 11.5-15.5 [facility] Comment on above: Order Comment: Speci men Type: BLOOD SPECIMENOrdering Facility: External Submitter Address: , , Performed By: #### 5 7021-8 ####[facility] [id number] [place] [address] [place] Immature granulocytes (Bld) [#/Vol] 0.03 10*3/uL Normal <0.10 [facility] Comment on above: Order Comment: Speci men Type: BLOOD SPECIMENOrdering Facility: External Submitter Address: , , Performed By: #### 5 7021-8 ####[facility] [id number] [address] [place] Immature granulocytes/100 WBC (Bld) 0.6 % Normal [facility] Comment on above: Order Comment: Speci men Type: BLOOD SPECIMENOrdering Facility: External Submitter Address: , , Performed By: #### 5 7021-8 ####[facility] [id number] [place] [address] [place] Lymphocytes (Bld) [#/Vol] 0.41 10*3/uL Low 1.00-4.00 [facility] Comment on above: Order Comment: Speci men Type: BLOOD SPECIMENOrdering Facility: External Submitter Address: , , Performed By: #### 5 7021-8 ####[facility] [id number] [place] [address] [place] Lymphocytes/100 WBC (Bld) 8.4 % Normal [facility] Comment on above: Order Comment: Speci men Type: BLOOD SPECIMENOrdering Facility: External Submitter Address: , , Performed By: #### 5 7021-8 ####[facility] [id number] [address] MCH (RBC) [Entitic mass] 29.1 pg Normal 26.0-34.0 [facility] Comment on above: Order Comment: Speci men Type: BLOOD SPECIMENOrdering Facility: External Submitter Address: , , Performed By: #### 5 7021-8 ####[facility] [id number] [address] [place] MCHC (RBC) [Mass/Vol] 32.0 g/dL Normal 30.5-36.0 [facility] Comment on above: Order Comment: Speci men Type: BLOOD SPECIMENOrdering Facility: External Submitter Address: , , Performed By: #### 5 7021-8 ####[facility] [id number] [address] [place] MCV (RBC) [Entitic vol] 91.0 fL Normal 80.0-100.0 [facility] Comment on above: Order Comment: Speci men Type: BLOOD SPECIMENOrdering Facility: External Submitter Address: , , Performed By: #### 5 7021-8 ####[facility] [id number] [address] Monocytes (Bld) [#/Vol] 0.64 10*3/uL Normal <0.87 [facility] Comment on above: Order Comment: Speci men Type: BLOOD SPECIMENOrdering Facility: External Submitter Address: , , Performed By: #### 5 7021-8 ####[facility] ALYSSAPHOENIXNICOLE [id number] [place] [address] [place] Monocytes/100 WBC (Bld) 13.2 % Normal [facility] Comment on above: Order Comment: Speci men Type: BLOOD SPECIMENOrdering Facility: External Submitter Address: , , Performed By: #### 5 7021-8 ####[facility] [id number] [place] [address] [place] Neutrophils (Bld) [#/Vol] 3.61 10*3/uL Normal 1.45-7.50 [facility] Comment on above: Order Comment: Speci men Type: BLOOD SPECIMENOrdering Facility: External Submitter Address: , , Performed By: #### 5 7021-8 ####[facility] [id number] [address] [place] Neutrophils/100 WBC (Bld) 74.3 % Normal [facility] Comment on above: Order Comment: Speci men Type: BLOOD SPECIMENOrdering Facility: External Submitter Address: , , Performed By: #### 5 7021-8 ####[facility] [id number] [address] [place] Nucleated RBC (Bld) [#/Vol] 10*3/uL Normal <0.01 [facility] Comment on above: Order Comment: Speci men Type: BLOOD SPECIMENOrdering Facility: External Submitter Address: , , Performed By: #### 5 7021-8 ####[facility] [id number] [address] [place] Nucleated RBC/100 WBC (Bld) [Ratio] 0.0 /100 WBC Normal [facility] Comment on above: Order Comment: Speci men Type: BLOOD SPECIMENOrdering Facility: External Submitter Address: , , Performed By: #### 5 7021-8 ####[facility] HOSPITALNCTIFFANI [id number] [place] [address] [place] Platelet mean volume (Bld) [Entitic vol] 10.2 fL Normal 9.0-12.7 [facility] Comment on above: Order Comment: Speci men Type: BLOOD SPECIMENOrdering Facility: External Submitter Address: , , Performed By: #### 5 7021-8 ####[facility] CENTERTIFFANI [id number] [place] [address] [place] Platelets (Bld) [#/Vol] 213 10*3/uL Normal 150-400 [facility] Comment on above: Order Comment: Speci men Type: BLOOD SPECIMENOrdering Facility: External Submitter Address: , , Performed By: #### 5 7021-8 ####[facility]ITALNCTOO[facility] [id number] [place] [address] [place] RBC (Bld) [#/Vol] 3.88 10*6/uL Low 3.90-5.20 [facility] Comment on above: Order Comment: Speci men Type: BLOOD SPECIMENOrdering Facility: External Submitter Address: , , Performed By: #### 5 7021-8 ####[facility]ITALNCTOO[facility] [id number] [place] [address] [place] WBC (Bld) [#/Vol] 4.86 10*3/uL Normal 3.70-11.00 [facility] Comment on above: Order Comment: Speci men Type: BLOOD SPECIMENOrdering Facility: External Submitter Address: , , Performed By: #### 5 7021-8 ####[facility] HOSPITALNCLI [id number] [place] [address] [place] CRP [facility]2025 CRP [Mass/Vol] 0.4 mg/dL Normal <0.9 [facility] Comment on above: Order Comment: Speci men Type: BLOOD SPECIMENOrdering Facility: External Submitter Address: , , Performed By: #### 2 132-9, 1987-11 ####[facility] LABCLIA [id number] AMAURYKarol [address] Comprehensive metabolic 2000 panelOrdered By: Cyndie Zhou on 01-14-2025 Albumin [Mass/Vol] 3.7 g/dL Low 3.9 - 4.9 g/dL [facility] ALP [Catalytic activity/Vol] 81 U/L 34 - 123 U/L [facility] ALT [Catalytic activity/Vol] 11 U/L 7 - 38 U/L [facility] Anion gap [Moles/Vol] 11 mmol/L 8 - 15 mmol/L [facility] AST [Catalytic activity/Vol] 20 U/L 13 - 35 U/L [facility] Bilirubin [Mass/Vol] 0.2 mg/dL 0.2 - 1 .3 mg/dL [facility] Calcium [Mass/Vol] 9.1 mg/dL 8.5 - 10. 2 mg/dL [facility] Chloride [Moles/Vol] 102 mmol/L 98 - 10 7 mmol/L [facility] CO2 [Moles/Vol] 21 mmol/L Low 22 - 30 mmol/L [facility] Creatinine [Mass/Vol] 0.59 mg/dL 0.58 - 0.96 mg/dL [facility] GFR/1.73 sq M.predicted among non-blacks MDRD (S/P/Bld) [Vol rate/Area] 100 mL/min/{1.73_m2} - PINF [facility] Comment on above: Estimated Glomerular Filtration [...] 106 mg/dL High 74 - 99 mg/dL [facility] Comment on above: The [place] Diabete s Association (ADA) provides guidance for [...] Standards of Medical Care in Diabetes 2016, [place] [employer]. Diabetes Care. 2016.39(Suppl 1). Interpretation and review of laboratory results Abnormal [facility] Potassium [Moles/Vol] 4.2 mmol/L 3.7 - 5.1 mmol/L [facility] Protein [Mass/Vol] 6.1 g/dL Low 6.3 - 8.0 g/dL [facility] Sodium [Moles/Vol] 134 mmol/L Low 136 - 144 mmol/L [facility] Urea nitrogen [Mass/Vol] 9 mg/dL 7 - 21 mg/dL [facility] Comprehensive metabolic 2000 panelon 01-14-2025 Albumin [Mass/Vol] 3.7 g/dL Low 3.9-4.9 [facility] Comment on above: Order Comment: Mindy mcfarlane Type: BLOOD SPECIMENOrdering Facility: External Submitter Address: , , Performed By: #### 2 4323-8 ####[facility] [id number] [place] [address] [place] ALP [Catalytic activity/Vol] 81 U/L Normal 34-123 [facility] Comment on above: Order Comment: Mindy mcfarlane Type: BLOOD SPECIMENOrdering Facility: External Submitter Address: , , Performed By: #### 2 4323-8 ####[facility] [id number] [place] [address] [place] ALT [Catalytic activity/Vol] 11 U/L Normal 7-38 [facility] Comment on above: Order Comment: Mindy mcfarlane Type: BLOOD SPECIMENOrdering Facility: External Submitter Address: , , Performed By: #### 2 4323-8 ####[facility] CENTERTIFFANIA [id number] [place] [address] [place] Anion gap [Moles/Vol] 11 mmol/L Normal 8-15 [facility] Comment on above: Order Comment: Speci men Type: BLOOD SPECIMENOrdering Facility: External Submitter Address: , , Performed By: #### 2 4323-8 ####[facility] [id number] [place] [address] [place] AST [Catalytic activity/Vol] 20 U/L Normal 13-35 [facility] Comment on above: Order Comment: Speci men Type: BLOOD SPECIMENOrdering Facility: External Submitter Address: , , Performed By: #### 2 4323-8 ####[facility] [id number] [place] [address] [place] Bilirubin [Mass/Vol] 0.2 mg/dL Normal 0.2-1.3 [facility] Comment on above: Order Comment: Speci men Type: BLOOD SPECIMENOrdering Facility: External Submitter Address: , , Performed By: #### 2 4323-8 ####[facility] [id number] [place] [address] [place] Calcium [Mass/Vol] 9.1 mg/dL Normal 8.5-10.2 [facility] Comment on above: Order Comment: Speci men Type: BLOOD SPECIMENOrdering Facility: External Submitter Address: , , Performed By: #### 2 4323-8 ####[facility] [id number] [place] [address] [place] Chloride [Moles/Vol] 102 mmol/L Normal 98-107 [facility] Comment on above: Order Comment: Speci men Type: BLOOD SPECIMENOrdering Facility: External Submitter Address: , , Performed By: #### 2 4323-8 ####[facility] [id number] [place] [address] [place] CO2 [Moles/Vol] 21 mmol/L Low 22-30 [facility] Comment on above: Order Comment: Speci men Type: BLOOD SPECIMENOrdering Facility: External Submitter Address: , , Performed By: #### 2 4323-8 ####[facility] [id number] [address] [place] Creatinine [Mass/Vol] 0.59 mg/dL Normal 0.58-0.96 [facility] Comment on above: Order Comment: Speci men Type: BLOOD SPECIMENOrdering Facility: External Submitter Address: , , Performed By: #### 2 4323-8 ####[facility] [id number] [address] Creatinine and Glomerular filtration rate.predicted panel (S/P/Bld) 100 mL/min/1.73m??? Normal >=60 [facility] Comment on above: Order Comment: Speci [...] actual GFR. Performed By: #### 2 4323-8 ####[facility] [id number] [place] [address] [place] Glucose [Mass/Vol] 106 mg/dL High 74-99 [facility] Comment on above: Order Comment: Speci men Type: BLOOD SPECIMENOrdering Facility: External Submitter Address: , , Result Comment: The [place] Diabetes Association (ADA) provides guidance for cutoff [...] Standards of Medical Care in Diabetes 2016, [place] [employer]. Diabetes Care. 2016.39(Suppl 1). Performed By: #### 2 4323-8 ####[facility] [id number] [place] [address] [place] Potassium [Moles/Vol] 4.2 mmol/L Normal 3.7-5.1 [facility] Comment on above: Order Comment: Mindy mcfarlane Type: BLOOD SPECIMENOrdering Facility: External Submitter Address: , , Performed By: #### 2 4323-8 ####[facility] [id number] [place] [address] [place] Protein [Mass/Vol] 6.1 g/dL Low 6.3-8.0 [facility] Comment on above: Order Comment: Mindy mcfarlane Type: BLOOD SPECIMENOrdering Facility: External Submitter Address: , , Performed By: #### 2 4323-8 ####[facility] CENTERLIA [id number] [place] [address] [place] Sodium [Moles/Vol] 134 mmol/L Low 136-144 [facility] Comment on above: Order Comment: Mindy mcfarlane Type: BLOOD SPECIMENOrdering Facility: External Submitter Address: , , Performed By: #### 2 4323-8 ####[facility] [id number] [place] [id number] [place] Urea nitrogen [Mass/Vol] 9 mg/dL Normal 7-21 [facility] Comment on above: Order Comment: Speci men Type: BLOOD SPECIMENOrdering Facility: External Submitter Address: , , Performed By: #### 2 4323-8 ####[facility] [id number] [place] [id number] [place] [address] [place] Gastroenterology Visit Repor ton 01-14-2025 Gastroenterology Visit Report [facility]enterology [address] [place] [id number] OFFICE VISIT Date of Service: 01/14/25 MR#: [id number] Acct: [id number] Name: MARIMAR WANG Rep #: [id number] : 1960 Provider: [facility] ar[facility]aza Age/Sex: 64/F [facility] Status: Signed Intake Vital Signs 10/30/24 00:58 12/27/24 14:43 01/14/25 08:27 Height 5 ft 2 in 5 ft 2 in 5 ft 2 in Weight: 183 lb BMI 33.5 BP 167/84 H Respiration 20 H Pulse 74 Temp 97.6 F L Temp Source Temporal Pulse Oximetry (%) 96 Oxygen Delivery Method room air Intake Visit Reasons: FU Chief Complaint: Crohn's follow-up Certified Hyperbaric Technician Required: No Accompanied by: Self Is patient [...] [facility] MENTAL HEALTH 6 01/14/25 History peg 571-qrzyuvpwrzhk-kpsgvph n 1 1 drp OP 4X/DAY DRY [...] Constipation 01/14/25 History gram/dose oral powder (Miralax) argjkm-vodjscxv-qlzbiln See Rx Instructions PO .COMPLEX 01/14/25 Rx [...] Q12H 10/24/24 01/14/25 History a dose pack (EliquMashape DVT-PE Treat 30D Start) cholecalciferol (vitamin D3) [...] you fallen in the past year?: No [facility] Medical History 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 Normal [facility] HBV core Ab Ser Qlon 025 HBV core Ab Ql (S) Negative Normal Negative [facility] Comment on above: Order Comment: Speci men Type: BLOOD SPECIMENOrdering Facility: External Submitter Address: , , Result Comment: No e vidence of current or past infection with Hepatitis B virus. Should recent infection be suspected, repeat testing may be considered 3-4 weeks after this draw. Performed By: #### 2 2322-2, 5195-3, 39672-2 ####[facility] [id number] [place] [address] [place] HBV surface Ab Ql (S)on 12-27 HBV surface Ab Qn (S) <8.00 Normal [facility] Comment on above: Order Comment: Speci men Type: BLOOD SPECIMENOrdering Facility: External Submitter Address: , , Result Comment: <8 m IU/mL: No serological evidence of immunity to Hepatitis B Virus.>/= 8 to <12 mIU/mL: No serological evidence of immunity to Hepatitis B Virus.>/= 12 mIU/mL: Consistent with serological evidence of immunity to Hepatitis B Virus. Performed By: #### 2 2322-2, 5195-3, 60962-1 ####[facility] LABIA [id number] [place] [address] [place] HBV surface Ab Ser Qlon 12-27 HBV surface Ab Ql (S) Negative Normal [facility] Comment on above: Order Comment: Speci men Type: BLOOD SPECIMENOrdering Facility: External Submitter Address: , , Result Comment: No s erological evidence of immunity to Hepatitis B Virus. Performed By: #### 2 2322-2, 5195-3, 12219-0 ####[facility] LABIA [id number] [place] [id number] [facility] [place] HBV surface Ag Ser Qlon 12-27 HBV surface Ag Ql (S) Negative Normal Negative [facility] Comment on above: Order Comment: Speci men Type: BLOOD SPECIMENOrdering Facility: External Submitter Address: , , Performed By: #### 2 2322-2, 5195-3, 36417-0 ####[facility] LABCLIA [id number] [place] [id number] [place] Vit B12 SerPl-mCncon 025 Cobalamin (Vitamin B12) [Mass/Vol] 1301 pg/mL High 232-1245 [facility] Comment on above: Order Comment: Speci men Type: BLOOD SPECIMENOrdering Facility: External Submitter Address: , , Performed By: #### 2 132-9, 1987-11 ####[facility] LABCLIA [id number] [place] [id number] [facility] [place] CNPNon 01-05-2025 CNPN Normal [facility] Emergency Department Summary on 12-27-2024 Emergency Department Summary [facility] Medical Records Department [address] [place] [address] Emergency Department Summary 12/27/24 MR#: [id number] Acct: [id number] Name: MARIMAR WANG Rep #: [id number] : 1960 64 From: Woo Thapa MD PCP: Julio Arriaga NP-C Status:DEP ER Location: ED HPI History of [...] injury. She has no fever or chills. [facility] Medical History Squamous cell cancer of [...] [facility] 6 09/01/24 History peg 494-nejfnbhaqtaj-rnemtbo n 1 1 drp OP 4X/DAY DRY [...] Constipation Unknown History gram/dose oral powder (Miralax) qloblt-ujmxlfjs-kqjppym See Rx Instructions PO .COMPLEX 09/01/24 Rx [...] HCl 1 (more content not included)... Normal [facility] Pelvis without IV Contraston 12-27-2024 Pelvis without IV Contrast [facility] Imaging Services [address] [place] [address] Pelvis without IV Contrast MR#: [id number] Acct: [id number] Name: MARIMAR WANG Rep #: [id number] : 1960 F 64 From: Pablo Mendoza MD PCP: SINAI Arriola Status: REG ER Study: Pelvis without IV Contrast Date of Exam: 12/27 Exam# [id number] Ordering Dr: Ekaterina Wadsworth PROCEDURE: PELVIS WITHOUT [...] Contrast IMPRESSION: No acute abnormalities. Reading Location: [id number] CC: SINAI Arriaga; [place] [employer] Operator: Signed [facility] 12-11-2024 [facility] 12-04-2024 [facility] Telephone (RHBATH) -------- MARIMAR WANG ([id number]) 1960 F Date Time Provider Department 12/04/24 [...] Date Reviewed: 11/30/2024 Reviewed by: Delvin Ron APRN.REGULATORY LEADER - Fully Assessed Reason for Visit: Patient [...] by mouth two times a day. - nkwbikavdwWGSJU-iewpkb-s idocaine (BMX 1:1:1) 1:1:1 liqd Take 10 [...] 80 mg by mouth once daily. - cwhyee-yyahzkfy-fmuyizf (CREON 36) 36,000-114,000- 180,000 unit delayed release [...] of Breath (more content not included)... Normal [facility] CBC W/Diff, Automatedon PATH REV N/A Normal [facility] Comment on above: Result Comment: Path ology review canceled due to updated review criteria. AMENDED REPORT 12/03/24 1202 PATH REV previously reported as: November Performed By: #### L 100.0100, L500.2500 #### [facility] Laboratory [facility] [place], [address] CBC W Auto Differential pane l (Bld)on 11-30-2024 Basophils (Bld) [#/Vol] 0.07 10*3/uL [facility] Basophils/100 WBC (Bld) 1.5 % [facility] Differential cell count method Nom (Bld) Auto [facility] Eosinophils (Bld) [#/Vol] 0.18 10*3/uL [facility] Eosinophils/100 WBC (Bld) 3.8 % [facility] Erythrocyte distribution width (RBC) [Ratio] 20.7 % High 11.5 - 15.0 % [facility] Hematocrit (Bld) [Volume fraction] 35 % Low 36.0 - 46.0 % [facility] Hemoglobin (Bld) [Mass/Vol] 11.2 g/dL Low 11.5 - 15.5 g/dL [facility] Immature granulocytes (Bld) [#/Vol] 0.03 10*3/uL [facility] Immature granulocytes/100 WBC (Bld) 0.6 % [facility] Interpretation and review of laboratory results Abnormal [facility] Lymphocytes (Bld) [#/Vol] 0.24 10*3/uL Low [facility] Lymphocytes/100 WBC (Bld) 5 % [facility] MCH (RBC) [Entitic mass] 28.9 pg 26.0 - 34.0 pg [facility] MCHC (RBC) [Mass/Vol] 32 g/dL 30.5 - 36.0 g/dL [facility] MCV (RBC) [Entitic vol] 90.2 fL 80.0 - 100.0 fL [facility] Monocytes (Bld) [#/Vol] 0.63 10*3/uL [facility] Monocytes/100 WBC (Bld) 13.1 % [facility] Neutrophils (Bld) [#/Vol] 3.65 10*3/uL [facility] Neutrophils/100 WBC (Bld) 76 % [facility] Nucleated RBC (Bld) [#/Vol] [facility] Nucleated RBC/100 WBC (Bld) [Ratio] 0 % /100 WBC [facility] Platelet mean volume (Bld) [Entitic vol] 10 fL 9.0 - 12.7 fL [facility] Platelets (Bld) [#/Vol] 194 10*3/uL [facility] RBC (Bld) [#/Vol] 3.88 10*6/uL Low 3.90 - 5.2 0 m/uL [facility] WBC (Bld) [#/Vol] 4.8 10*3/uL [facility] Basophils (Bld) [#/Vol] 0.07 10*3/uL Normal <0.11 [facility] Comment on above: Order Comment: Speci men Type: BLOOD SPECIMENOrdering Facility: [facility] Address: [address] [place] [address] Performed By: #### 5 7021-8 ####[facility] RIGOBERTOSELECT [facility]ICAL [facility] [id number] [address] [place] Basophils/100 WBC (Bld) 1.5 % Normal [facility] Comment on above: Order Comment: Speci men Type: BLOOD SPECIMENOrdering Facility: [facility] Address: [address] [place] [address] Performed By: #### 5 7021-8 ####[facility] HOSPITALZEVLIA [id number] [place] [address] [place] Differential cell count method Nom (Bld) Auto Normal [facility] Comment on above: Order Comment: Speci men Type: BLOOD SPECIMENOrdering Facility: [facility] Address: [address] [place] [address] Performed By: #### 5 7021-8 ####[facility] HOSPITALZEVA [id number] [place] [address] [place] Eosinophils (Bld) [#/Vol] 0.18 10*3/uL Normal <0.46 [facility] Comment on above: Order Comment: Speci men Type: BLOOD SPECIMENOrdering Facility: [facility] Address: [address] [place] [address] Performed By: #### 5 7021-8 ####[facility] [id number] [place] [address] [place] Eosinophils/100 WBC (Bld) 3.8 % Normal [facility] Comment on above: Order Comment: Speci men Type: BLOOD SPECIMENOrdering Facility: [facility] Address: [address] [place] [address] Performed By: #### 5 7021-8 ####[facility] HOSPITALNCA [id number] [place] [address] [place] Erythrocyte distribution width (RBC) [Ratio] 20.7 % High 11.5-15.0 [facility] Comment on above: Order Comment: Speci men Type: BLOOD SPECIMENOrdering Facility: [facility] Address: [address] [place] [address] Performed By: #### 5 7021-8 ####[facility] SHALONDAWNCLIA [id number] [place] [address] [place] Hematocrit (Bld) [Volume fraction] 35.0 % Low 36.0-46.0 [facility] Comment on above: Order Comment: Speci men Type: BLOOD SPECIMENOrdering Facility: [facility] Address: [address] [place] [address] Performed By: #### 5 7021-8 ####[facility] CENTERLIA [id number] [place] [address] [place] Hemoglobin (Bld) [Mass/Vol] 11.2 g/dL Low 11.5-15.5 [facility] Comment on above: Order Comment: Speci men Type: BLOOD SPECIMENOrdering Facility: [facility] Address: [address] [place] [address] Performed By: #### 5 7021-8 ####[facility]ITAL[facility] [id number] [place] [address] [place] Immature granulocytes (Bld) [#/Vol] 0.03 10*3/uL Normal <0.10 [facility] Comment on above: Order Comment: Speci men Type: BLOOD SPECIMENOrdering Facility: [facility] Address: [address] [place] [address] Performed By: #### 5 7021-8 ####[facility] CENTERLIA [id number] [place] [address] [place] Immature granulocytes/100 WBC (Bld) 0.6 % Normal [facility] Comment on above: Order Comment: Speci men Type: BLOOD SPECIMENOrdering Facility: [facility] Address: [address] [place] [address] Performed By: #### 5 7021-8 ####[facility] HOSPITALNCLI [id number] [place] [address] [place] Lymphocytes (Bld) [#/Vol] 0.24 10*3/uL Low 1.00-4.00 [facility] Comment on above: Order Comment: Speci men Type: BLOOD SPECIMENOrdering Facility: [facility] Address: [address] [place] [address] Performed By: #### 5 7021-8 ####[facility] [id number] [place] [address] [place] Lymphocytes/100 WBC (Bld) 5.0 % Normal [facility] Comment on above: Order Comment: Speci men Type: BLOOD SPECIMENOrdering Facility: [facility] Address: [address] [place] [address] Performed By: #### 5 7021-8 ####[facility] [id number] [place] [address] [place] MCH (RBC) [Entitic mass] 28.9 pg Normal 26.0-34.0 [facility] Comment on above: Order Comment: Speci men Type: BLOOD SPECIMENOrdering Facility: [facility] Address: [address] [place] [address] Performed By: #### 5 7021-8 ####[facility] [id number] [place] [address] [place] MCHC (RBC) [Mass/Vol] 32.0 g/dL Normal 30.5-36.0 [facility] Comment on above: Order Comment: Speci men Type: BLOOD SPECIMENOrdering Facility: [facility] Address: [address] [place] [address] Performed By: #### 5 7021-8 ####[facility] HOSPITALNCLI [id number] [place] [address] [place] MCV (RBC) [Entitic vol] 90.2 fL Normal 80.0-100.0 [facility] Comment on above: Order Comment: Speci men Type: BLOOD SPECIMENOrdering Facility: [facility] Address: [address] [place] [address] Performed By: #### 5 7021-8 ####[facility] [id number] [place] [address] [place] Monocytes (Bld) [#/Vol] 0.63 10*3/uL Normal <0.87 [facility] Comment on above: Order Comment: Speci men Type: BLOOD SPECIMENOrdering Facility: [facility] Address: [address] [place] [address] Performed By: #### 5 7021-8 ####[facility] [id number] [place] [address] [place] Monocytes/100 WBC (Bld) 13.1 % Normal [facility] Comment on above: Order Comment: Speci men Type: BLOOD SPECIMENOrdering Facility: [facility] Address: [address] [place] [address] Performed By: #### 5 7021-8 ####[facility] [id number] [place] [address] [place] Neutrophils (Bld) [#/Vol] 3.65 10*3/uL Normal 1.45-7.50 [facility] Comment on above: Order Comment: Speci men Type: BLOOD SPECIMENOrdering Facility: [facility] Address: [address] [place] [address] Performed By: #### 5 7021-8 ####[facility] [id number] [place] [address] [place] Neutrophils/100 WBC (Bld) 76.0 % Normal [facility] Comment on above: Order Comment: Speci men Type: BLOOD SPECIMENOrdering Facility: [facility] Address: [address] [place] [address] Performed By: #### 5 7021-8 ####[facility] H[facility]ITALNCLIA [id number] [place] [address] [place] Nucleated RBC (Bld) [#/Vol] 10*3/uL Normal <0.01 [facility] Comment on above: Order Comment: Speci men Type: BLOOD SPECIMENOrdering Facility: [facility] Address: [address] [place] [address] Performed By: #### 5 7021-8 ####[facility]A [id number] [place] [address] [place] Nucleated RBC/100 WBC (Bld) [Ratio] 0.0 /100 WBC Normal [facility] Comment on above: Order Comment: Speci men Type: BLOOD SPECIMENOrdering Facility: [facility] Address: [address] [place] [address] Performed By: #### 5 7021-8 ####[facility] H[facility]ITALNCLIA [id number] [place] [address] [place] Platelet mean volume (Bld) [Entitic vol] 10.0 fL Normal 9.0-12.7 [facility] Comment on above: Order Comment: Speci men Type: BLOOD SPECIMENOrdering Facility: [facility] Address: [address] [place] [address] Performed By: #### 5 7021-8 ####[facility] CENTERLIA [id number] [place] [address] [place] Platelets (Bld) [#/Vol] 194 10*3/uL Normal 150-400 [facility] Comment on above: Order Comment: Speci men Type: BLOOD SPECIMENOrdering Facility: [facility] Address: [address] [place] [address] Performed By: #### 5 7021-8 ####[facility] HOS[facility]ITALNCLI [id number] [place] [address] [place] RBC (Bld) [#/Vol] 3.88 10*6/uL Low 3.90-5.20 [facility] Comment on above: Order Comment: Speci men Type: BLOOD SPECIMENOrdering Facility: [facility] Address: [address] [place] [address] Performed By: #### 5 7021-8 ####[facility] RIGOBERTO ALYSSAPHOENIXNCLIA [id number] [place] [address] [place] WBC (Bld) [#/Vol] 4.80 10*3/uL Normal 3.70-11.00 [facility] Comment on above: Order Comment: Speci men Type: BLOOD SPECIMENOrdering Facility: [facility] Address: [address] [place] [address] Performed By: #### 5 7021-8 ####[facility] RIGOBERTO ALYSSAPHOENIXNCLIA [id number] [place] [address] [place] CNOVSPon 11-30-2024 CNOVSP Normal [facility] CNPNon 11-30-2024 CNPN Telephone (LYN) -------- MARIMAR WANG ([id number]) 1960 F Date Time Provider Department 11/30/24 [...] Date Reviewed: 11/30/2024 Reviewed by: Delvin Ron APRN.REGULATORY LEADER - Fully Assessed Reason for Visit: Appointment [186] Cmt: Reclast Prescriptions as of 12/02/2024 - iv contrast [...] by mouth two times a day. - kfmltsehmfIOKXB-sgzggr-t idocaine (BMX 1:1:1) 1:1:1 liqd Take 10 [...] 80 mg by mouth once daily. - pkdxuc-brahdtbj-kkiiwrm (CREON 36) 36,000-114,000- 180,000 unit delayed release [...] of Breat (more content not included)... Normal [facility] CNPN Normal [facility] Comprehensive metabolic 2000 panelOrdered By: Cyndie Zhou on 11-30-2024 Albumin [Mass/Vol] 3.5 g/dL Low 3.9 - 4.9 g/dL [facility] ALP [Catalytic activity/Vol] 73 U/L 34 - 123 U/L [facility] ALT [Catalytic activity/Vol] 10 U/L 7 - 38 U/L [facility] Anion gap [Moles/Vol] 9 mmol/L 8 - 15 mmol/L [facility] AST [Catalytic activity/Vol] 18 U/L 13 - 35 U/L [facility] Bilirubin [Mass/Vol] 0.2 mg/dL 0.2 - 1 .3 mg/dL [facility] Calcium [Mass/Vol] 9.2 mg/dL 8.5 - 10. 2 mg/dL [facility] Chloride [Moles/Vol] 98 mmol/L 98 - 10 7 mmol/L [facility] CO2 [Moles/Vol] 25 mmol/L 22 - 30 mmol/L [facility] Creatinine [Mass/Vol] 0.63 mg/dL 0.58 - 0.96 mg/dL [facility] GFR/1.73 sq M.predicted among non-blacks MDRD (S/P/Bld) [Vol rate/Area] 99 mL/min/{1.73_m2} - PINF [facility] Comment on above: Estimated Glomerular Filtration [...] 104 mg/dL High 74 - 99 mg/dL [facility] Comment on above: The [place] [employer] Association (ADA) provides guidance for [...] Standards of Medical Care in Diabetes 2016, [place] [employer]. Diabetes Care. 2016.39(Suppl 1). Interpretation and review of laboratory results Abnormal [facility] Potassium [Moles/Vol] 4.4 mmol/L 3.7 - 5.1 mmol/L [facility] Protein [Mass/Vol] 6.4 g/dL 6.3 - 8.0 g/dL [facility] Sodium [Moles/Vol] 132 mmol/L Low 136 - 144 mmol/L [facility] Urea nitrogen [Mass/Vol] 8 mg/dL 7 - 21 mg/dL [facility] Comprehensive metabolic 2000 panelon 11-30-2024 Albumin [Mass/Vol] 3.5 g/dL Low 3.9-4.9 [facility] Comment on above: Order Comment: Speci men Type: BLOOD SPECIMENOrdering Facility: [facility] Address: [address] [place] [address] Performed By: #### 2 4323-8 ####[facility] [id number] [place] [address] [place] ALP [Catalytic activity/Vol] 73 U/L Normal 34-123 [facility] Comment on above: Order Comment: Speci men Type: BLOOD SPECIMENOrdering Facility: [facility] Address: [address] [place], [place] [id number] Performed By: #### 2 4323-8 ####[facility] CENTERLI [id number] [place] [address] [place] ALT [Catalytic activity/Vol] 10 U/L Normal 7-38 [facility] Comment on above: Order Comment: Speci men Type: BLOOD SPECIMENOrdering Facility: [facility] Address: [address] [place] [address] Performed By: #### 2 4323-8 ####[facility] RIGOBERTO MILLTOWNCLIA [id number] [place] [address] [place] Anion gap [Moles/Vol] 9 mmol/L Normal 8-15 [facility] Comment on above: Order Comment: Speci men Type: BLOOD SPECIMENOrdering Facility: [facility] Address: [address] [place] [address] Performed By: #### 2 4323-8 ####[facility] FLORIDAWNCLIA [id number] [place] [address] [place] AST [Catalytic activity/Vol] 18 U/L Normal 13-35 [facility] Comment on above: Order Comment: Speci men Type: BLOOD SPECIMENOrdering Facility: [facility] Address: [address] [place] [address] Performed By: #### 2 4323-8 ####[facility] HOS[facility]ITALNCLIA [id number] [place] [address] [place] Bilirubin [Mass/Vol] 0.2 mg/dL Normal 0.2-1.3 [facility] Comment on above: Order Comment: Speci men Type: BLOOD SPECIMENOrdering Facility: [facility] Address: [address] [place] [address] Performed By: #### 2 4323-8 ####[facility] MILLWNCLIA [id number] [place] [address] [place] Calcium [Mass/Vol] 9.2 mg/dL Normal 8.5-10.2 [facility] Comment on above: Order Comment: Speci men Type: BLOOD SPECIMENOrdering Facility: [facility] Address: [address] [place] [address] Performed By: #### 2 4323-8 ####[facility] ALYSSAJamirNCTIFFANIA [id number] [place] [address] [place] Chloride [Moles/Vol] 98 mmol/L Normal 98-107 [facility] Comment on above: Order Comment: Speci men Type: BLOOD SPECIMENOrdering Facility: [facility] Address: [address] [place] [address] Performed By: #### 2 4323-8 ####[facility] HOSPITALNCA [id number] [place] [address] [place] CO2 [Moles/Vol] 25 mmol/L Normal 22-30 [facility] Comment on above: Order Comment: Speci men Type: BLOOD SPECIMENOrdering Facility: [facility] Address: [address] [place] [address] Performed By: #### 2 4323-8 ####[facility] HOS[facility]ITALNCLIA [id number] [place] [address] [place] Creatinine [Mass/Vol] 0.63 mg/dL Normal 0.58-0.96 [facility] Comment on above: Order Comment: Speci men Type: BLOOD SPECIMENOrdering Facility: [facility] Address: [address] [place] [address] Performed By: #### 2 4323-8 ####[facility] HOS[facility]ITALNCLIA [id number] [place] [address] [place] Creatinine and Glomerular filtration rate.predicted panel (S/P/Bld) 99 mL/min/1.73m??? Normal >=60 [facility] Comment on above: Order Comment: Speci men Type: BLOOD SPECIMENOrdering Facility: [facility] Address: [address] [place] [address] Result Comment: Sonia mated Glomerular Filtration Rate [...] actual GFR. Performed By: #### 2 4323-8 ####[facility] [id number] [place] [address] [place] Glucose [Mass/Vol] 104 mg/dL High 74-99 [facility] [facility] Comment on above: Order Comment: Mindy mcfarlane Type: BLOOD SPECIMENOrdering Facility: [facility] Address: [address] [place] [address] Result Comment: The [employer] [employer] (ADA) provides guidance for cutoff [...] Standards of Medical Care in Diabetes 2016, [employer] [employer]. Diabetes Care. 2016.39(Suppl 1). Performed By: #### 2 4323-8 ####[facility]ITALA [id number] [place] [address] [place] Potassium [Moles/Vol] 4.4 mmol/L Normal 3.7-5.1 [facility] Comment on above: Order Comment: Mindy mcfarlane Type: BLOOD SPECIMENOrdering Facility: [facility] Address: [address] [place] [address] Performed By: #### 2 4323-8 ####[facility] [id number] [place] [address] [place] Protein [Mass/Vol] 6.4 g/dL Normal 6.3-8.0 [facility] Comment on above: Order Comment: Speci men Type: BLOOD SPECIMENOrdering Facility: [facility] Address: [address] [place] [address] Performed By: #### 2 4323-8 ####[facility] HOSPITALHAMLETA [id number] [place] [address] [place] Sodium [Moles/Vol] 132 mmol/L Low 136-144 [facility] Comment on above: Order Comment: Speci men Type: BLOOD SPECIMENOrdering Facility: [facility] Address: [address] [place] [address] Performed By: #### 2 4323-8 ####[facility]S HOSPITALZEVFroy [id number] [place] [address] [place] Urea nitrogen [Mass/Vol] 8 mg/dL Normal 7-21 [facility] Comment on above: Order Comment: Speci men Type: BLOOD SPECIMENOrdering Facility: [facility] Address: [address] [place] [address] Performed By: #### 2 4323-8 ####[facility] HOSPITALNCLIA [id number] [place] [address] [place] CBC W Auto Differential pane l (Bld)on 11-23-2024 Basophils (Bld) [#/Vol] 0.08 10*3/uL Normal <0.11 [facility] Comment on above: Order Comment: Speci men Type: BLOOD SPECIMENOrdering Facility: [facility] Address: [address] [place] [address] Performed By: #### 5 7021-8 ####[facility] CENTERLIA [id number] [place] [address] [place] Basophils/100 WBC (Bld) 2.1 % [facility] Comment on above: Order Comment: Speci men Type: BLOOD SPECIMENOrdering Facility: [facility] Address: [address] [place] [address] Performed By: #### 5 7021-8 ####[facility] HOSPITALHAMLET [id number] [place] [address] [place] Differential cell count method Nom (Bld) Auto Normal [facility] Comment on above: Order Comment: Speci men Type: BLOOD SPECIMENOrdering Facility: [facility] Address: [address] [place] [address] Performed By: #### 5 7021-8 ####[facility] [id number] [place] [address] [place] Eosinophils (Bld) [#/Vol] 0.07 10*3/uL Normal <0.46 [facility] Comment on above: Order Comment: Speci men Type: BLOOD SPECIMENOrdering Facility: [facility] Address: [address] [place] [address] Performed By: #### 5 7021-8 ####[facility] [id number] [place] [address] [place] Eosinophils/100 WBC (Bld) 1.8 % Normal [facility] Comment on above: Order Comment: Speci men Type: BLOOD SPECIMENOrdering Facility: [facility] Address: [address] [place] [address] Performed By: #### 5 7021-8 ####[facility] [id number] [place] [address] [place] Erythrocyte distribution width (RBC) [Ratio] 21.4 % High 11.5-15.0 [facility] Comment on above: Order Comment: Speci men Type: BLOOD SPECIMENOrdering Facility: [facility] Address: [address] [place] [address] Performed By: #### 5 7021-8 ####[facility] HOSPITALNCLIA [id number] [place] [address] [place] Hematocrit (Bld) [Volume fraction] 33.5 % Low 36.0-46.0 [facility] Comment on above: Order Comment: Speci men Type: BLOOD SPECIMENOrdering Facility: [facility] Address: [address] [place] [address] Performed By: #### 5 7021-8 ####[facility]ICAL CENTERTIFFANIA [id number] [place] [address] [place] Hemoglobin (Bld) [Mass/Vol] 10.8 g/dL Low 11.5-15.5 [facility] Comment on above: Order Comment: Speci men Type: BLOOD SPECIMENOrdering Facility: [facility] Address: [address] [place] [address] Performed By: #### 5 7021-8 ####[facility] [id number] [place] [address] [place] Immature granulocytes (Bld) [#/Vol] 0.06 10*3/uL Normal <0.10 [facility] Comment on above: Order Comment: Speci men Type: BLOOD SPECIMENOrdering Facility: [facility] Address: [address] [place] [address] Performed By: #### 5 7021-8 ####[facility] CENTERLIA [id number] [place] [address] [place] Immature granulocytes/100 WBC (Bld) 1.6 % Normal [facility] Comment on above: Order Comment: Speci men Type: BLOOD SPECIMENOrdering Facility: [facility] Address: [address] [place] [address] Performed By: #### 5 7021-8 ####[facility] HOSPITALNCLIA [id number] [place] [address] [place] Lymphocytes (Bld) [#/Vol] 0.21 10*3/uL Low 1.00-4.00 [facility] Comment on above: Order Comment: Speci men Type: BLOOD SPECIMENOrdering Facility: [facility] Address: [address] [place] [address] Performed By: #### 5 7021-8 ####[facility] [id number] [address] [place] Lymphocytes/100 WBC (Bld) 5.5 % Normal [facility] Comment on above: Order Comment: Speci men Type: BLOOD SPECIMENOrdering Facility: [facility] Address: [address] [place] [address] Performed By: #### 5 7021-8 ####[facility] HOSPITALNCTOOELE VALLEY [facility] [id number] [place] [address] [place] MCH (RBC) [Entitic mass] 28.6 pg Normal 26.0-34.0 [facility] Comment on above: Order Comment: Speci men Type: BLOOD SPECIMENOrdering Facility: [facility] Address: [address] [place] [address] Performed By: #### 5 7021-8 ####[facility] [id number] [place] [address] [place] MCHC (RBC) [Mass/Vol] 32.2 g/dL Normal 30.5-36.0 [facility] Comment on above: Order Comment: Speci men Type: BLOOD SPECIMENOrdering Facility: [facility] Address: [address] [place] [address] Performed By: #### 5 7021-8 ####[facility] HOSPITALNCLI [id number] [address] [place] MCV (RBC) [Entitic vol] 88.9 fL Normal 80.0-100.0 [facility] Comment on above: Order Comment: Speci men Type: BLOOD SPECIMENOrdering Facility: [facility] Address: [address] [place] [address] Performed By: #### 5 7021-8 ####[facility] ALYSSAJAZMYN [id number] [place] [address] [place] Monocytes (Bld) [#/Vol] 0.62 10*3/uL Normal <0.87 [facility] Comment on above: Order Comment: Speci men Type: BLOOD SPECIMENOrdering Facility: [facility] Address: [address] [place] [address] Performed By: #### 5 7021-8 ####[facility]ITALA [id number] [place] [address] [place] Monocytes/100 WBC (Bld) 16.2 % Normal C [facility] Comment on above: Order Comment: Speci men Type: BLOOD SPECIMENOrdering Facility: [facility] Address: [address] [place] [address] Performed By: #### 5 7021-8 ####[facility] [id number] [place] [address] [place] Neutrophils (Bld) [#/Vol] 2.78 10*3/uL Normal 1.45-7.50 [facility] Comment on above: Order Comment: Speci men Type: BLOOD SPECIMENOrdering Facility: [facility] Address: [address] [place] [address] Performed By: #### 5 7021-8 ####[facility] CENTERLIA [id number] [place] [address] [place] Neutrophils/100 WBC (Bld) 72.8 % Normal [facility] Comment on above: Order Comment: Speci men Type: BLOOD SPECIMENOrdering Facility: [facility] Address: [address] [place] [address] Performed By: #### 5 7021-8 ####[facility] HOSPITALNCLIA [id number] [place] [address] [place] Nucleated RBC (Bld) [#/Vol] 10*3/uL Normal <0.01 [facility] Comment on above: Order Comment: Speci men Type: BLOOD SPECIMENOrdering Facility: [facility] Address: [address] [place] [address] Performed By: #### 5 7021-8 ####[facility] [id number] [place] [address] [place] Nucleated RBC/100 WBC (Bld) [Ratio] 0.0 /100 WBC Normal [facility] Comment on above: Order Comment: Speci men Type: BLOOD SPECIMENOrdering Facility: [facility] Address: [address] [place] [address] Performed By: #### 5 7021-8 ####[facility] HOSPITALNCTOOELE VALLEY HOSPITAL [id number] [place] [address] [place] Platelet mean volume (Bld) [Entitic vol] 9.9 fL Normal 9.0-12.7 [facility] Comment on above: Order Comment: Speci men Type: BLOOD SPECIMENOrdering Facility: [facility] Address: [address] [place] [address] Performed By: #### 5 7021-8 ####[facility]OS[facility]ITALA [id number] [place] [address] [place] Platelets (Bld) [#/Vol] 210 10*3/uL Normal 150-400 [facility] Comment on above: Order Comment: Speci men Type: BLOOD SPECIMENOrdering Facility: [facility] Address: [address] [place] [address] Performed By: #### 5 7021-8 ####[facility] HOSPITALNCTOOELE VALLEY [facility]PITAL [id number] [place] [id number] [place] RBC (Bld) [#/Vol] 3.77 10*6/uL Low 3.90-5.20 [facility] Comment on above: Order Comment: Speci men Type: BLOOD SPECIMENOrdering Facility: [facility] Address: [address] [place] [address] Performed By: #### 5 7021-8 ####[facility] ALYSSAJAZMYN [id number] [place] [address] [place] WBC (Bld) [#/Vol] 3.82 10*3/uL Normal 3.70-11.00 [facility] Comment on above: Order Comment: Speci men Type: BLOOD SPECIMENOrdering Facility: [facility] Address: [address] [place] [address] Performed By: #### 5 7021-8 ####[facility] HOSPITALNICOLE [id number] [place] [address] [place] Comprehensive metabolic 2000 panelon 11-23-2024 Albumin [Mass/Vol] 3.6 g/dL Low 3.9-4.9 [facility] Comment on above: Order Comment: Speci men Type: BLOOD SPECIMENOrdering Facility: [facility] Address: [address] [place] [address] Performed By: #### 2 4323-8 ####[facility] FLORIDAJAZMYN [id number] [place] [address] [place] ALP [Catalytic activity/Vol] 68 U/L Normal 34-123 [facility] Comment on above: Order Comment: Speci men Type: BLOOD SPECIMENOrdering Facility: [facility] Address: [address] [place] [address] Performed By: #### 2 4323-8 ####[facility] OF FLORIDAWNCLIA [id number] [place] [address] [place] ALT [Catalytic activity/Vol] 11 U/L Normal 7-38 [facility] Comment on above: Order Comment: Speci men Type: BLOOD SPECIMENOrdering Facility: [facility] Address: [address] [place] [address] Performed By: #### 2 4323-8 ####[facility] FLORIDAWNCLIA [id number] [place] [address] [place] Anion gap [Moles/Vol] 9 mmol/L Normal 8-15 [facility] Comment on above: Order Comment: Speci men Type: BLOOD SPECIMENOrdering Facility: [facility] Address: [address] [place] [address] Performed By: #### 2 4323-8 ####[facility] HOSPITALNCLIA [id number] [place] [address] [place] AST [Catalytic activity/Vol] 17 U/L Normal 13-35 [facility] Comment on above: Order Comment: Speci men Type: BLOOD SPECIMENOrdering Facility: [facility] Address: [address] [place] [address] Performed By: #### 2 4323-8 ####[facility]OSPITALA [id number] [place] [address] [place] Bilirubin [Mass/Vol] 0.2 mg/dL Normal 0.2-1.3 [facility] Comment on above: Order Comment: Speci men Type: BLOOD SPECIMENOrdering Facility: [facility] Address: [address] [place] [address] Performed By: #### 2 4323-8 ####[facility] HOSPITALNCLIA [id number] [place] [address] [place] Calcium [Mass/Vol] 9.2 mg/dL Normal 8.5-10.2 [facility] Comment on above: Order Comment: Speci men Type: BLOOD SPECIMENOrdering Facility: [facility] Address: [address] [place] [address] Performed By: #### 2 4323-8 ####[facility] MILLTOWNCLIA [id number] [place] [address] [place] Chloride [Moles/Vol] 99 mmol/L Normal 98-107 [facility] Comment on above: Order Comment: Speci men Type: BLOOD SPECIMENOrdering Facility: [facility] Address: [address] [place] [address] Performed By: #### 2 4323-8 ####[facility] CENTERLIA [id number] [place] [address] [place] CO2 [Moles/Vol] 25 mmol/L Normal 22-30 [facility] Comment on above: Order Comment: Speci men Type: BLOOD SPECIMENOrdering Facility: [facility] Address: [address] [place] [address] Performed By: #### 2 4323-8 ####[facility] CENTERLIA [id number] [place] [address] [place] Creatinine [Mass/Vol] 0.60 mg/dL Normal 0.58-0.96 [facility] Comment on above: Order Comment: Speci men Type: BLOOD SPECIMENOrdering Facility: [facility] Address: [address] [place] [address] Performed By: #### 2 4323-8 ####[facility] CENTERLIA [id number] [address] Creatinine and Glomerular filtration rate.predicted panel (S/P/Bld) 100 mL/min/1.73m??? Normal >=60 [facility] Comment on above: Order Comment: Speci men Type: BLOOD SPECIMENOrdering Facility: [facility] Address: [address] [place] [address] Result Comment: Sonia mated Glomerular Filtration Rate [...] GFR. Performed By: #### 2 4323-8 ####[facility] FLORIDAWZEVLIFroy [id number] [place] [address] [place] Glucose [Mass/Vol] 99 mg/dL Normal 74-99 [facility] Comment on above: Order Comment: Speci men Type: BLOOD SPECIMENOrdering Facility: [facility] Address: [address] [id number] Result Comment: The [place] [employer] (ADA) provides guidance for cutoff [...] Standards of Medical Care in Diabetes 2016, [place] [employer]. Diabetes Care. 2016.39(Suppl 1). Performed By: #### 2 4323-8 ####[facility]ITALA [id number] [place] [address] [place] Potassium [Moles/Vol] 4.1 mmol/L Normal 3.7-5.1 [facility] Comment on above: Order Comment: Speci men Type: BLOOD SPECIMENOrdering Facility: [facility] Address: [address] [place] [address] Performed By: #### 2 4323-8 ####[facility] HOSPITALNCLIA [id number] [place] [address] [place] Protein [Mass/Vol] 6.4 g/dL Normal 6.3-8.0 [facility] Comment on above: Order Comment: Speci men Type: BLOOD SPECIMENOrdering Facility: [facility] Address: [address] [place] [address] Performed By: #### 2 4323-8 ####[facility] FLORIDAWKSLIA [id number] [place] [address] [place] Sodium [Moles/Vol] 133 mmol/L Low 136-144 [facility] Comment on above: Order Comment: Speci men Type: BLOOD SPECIMENOrdering Facility: [facility] Address: [address] [place] [address] Performed By: #### 2 4323-8 ####[facility] CENTERLIA [id number] [place] [address] [place] Urea nitrogen [Mass/Vol] 5 mg/dL Low 7-21 [facility] Comment on above: Order Comment: Speci men Type: BLOOD SPECIMENOrdering Facility: [facility] Address: [address] [place] [address] Performed By: #### 2 4323-8 ####[facility]ITALA [id number] [place] [address] [place] CNPNon 11-19-2024 CNPN Normal [facility] CBC W Auto Differential pane l (Bld)on 11-16-2024 Basophils (Bld) [#/Vol] 0.05 10*3/uL [facility] Basophils/100 WBC (Bld) 1.1 % [facility] Differential cell count method Nom (Bld) Auto [facility] Eosinophils (Bld) [#/Vol] 0.16 10*3/uL [facility] Eosinophils/100 WBC (Bld) 3.4 % [facility] Erythrocyte distribution width (RBC) [Ratio] 21.2 % High 11.5 - 15.0 % [facility] Hematocrit (Bld) [Volume fraction] 31.9 % Low 36.0 - 46.0 % [facility] Hemoglobin (Bld) [Mass/Vol] 10.2 g/dL Low 11.5 - 15.5 g/dL [facility] Immature granulocytes (Bld) [#/Vol] 0.03 10*3/uL [facility] Immature granulocytes/100 WBC (Bld) 0.6 % [facility] Interpretation and review of laboratory results Abnormal [facility] Lymphocytes (Bld) [#/Vol] 0.15 10*3/uL Low [facility] Lymphocytes/100 WBC (Bld) 3.2 % [facility] MCH (RBC) [Entitic mass] 28.2 pg 26.0 - 34.0 pg [facility] MCHC (RBC) [Mass/Vol] 32 g/dL 30.5 - 36.0 g/dL [facility] MCV (RBC) [Entitic vol] 88.1 fL 80.0 - 100.0 fL [facility] Monocytes (Bld) [#/Vol] 0.72 10*3/uL [facility] Monocytes/100 WBC (Bld) 15.5 % [facility] Neutrophils (Bld) [#/Vol] 3.55 10*3/uL [facility] Neutrophils/100 WBC (Bld) 76.2 % [facility] Nucleated RBC (Bld) [#/Vol] [facility] Nucleated RBC/100 WBC (Bld) [Ratio] 0 % /100 WBC [facility] Platelet mean volume (Bld) [Entitic vol] 9.3 fL 9.0 - 12.7 fL [facility] Platelets (Bld) [#/Vol] 173 10*3/uL [facility] RBC (Bld) [#/Vol] 3.62 10*6/uL Low 3.90 - 5.2 0 m/uL [facility] WBC (Bld) [#/Vol] 4.66 10*3/uL [facility] Basophils (Bld) [#/Vol] 0.05 10*3/uL Normal <0.11 [facility] Comment on above: Order Comment: Speci men Type: BLOOD SPECIMENOrdering Facility: [facility] Address: [address] [place] [address] Performed By: #### 5 7021-8 ####[facility] RIGOBERTO WOOD [id number] [place] [address] [place] Basophils/100 WBC (Bld) 1.1 % Normal [facility] Comment on above: Order Comment: Speci men Type: BLOOD SPECIMENOrdering Facility: [facility] Address: [address] [place] [address] Performed By: #### 5 7021-8 ####[facility] [id number] [place] [address] [place] Differential cell count method Nom (Bld) Auto Normal [facility] Comment on above: Order Comment: Speci men Type: BLOOD SPECIMENOrdering Facility: [facility] Address: [address] [place] [address] Performed By: #### 5 7021-8 ####[facility] [id number] [place] [address] [place] Eosinophils (Bld) [#/Vol] 0.16 10*3/uL Normal <0.46 [facility] Comment on above: Order Comment: Speci men Type: BLOOD SPECIMENOrdering Facility: [facility] Address: [address] [place] [address] Performed By: #### 5 7021-8 ####[facility] [id number] [place] [address] [place] Eosinophils/100 WBC (Bld) 3.4 % Normal [facility] Comment on above: Order Comment: Speci men Type: BLOOD SPECIMENOrdering Facility: [facility] Address: [address] [place] [address] Performed By: #### 5 7021-8 ####[facility] [id number] [place] [address] [place] Erythrocyte distribution width (RBC) [Ratio] 21.2 % High 11.5-15.0 [facility] Comment on above: Order Comment: Speci men Type: BLOOD SPECIMENOrdering Facility: [facility] Address: [address] [place] [address] Performed By: #### 5 7021-8 ####[facility] ALYSSAJAZMYN [id number] [place] [address] [place] Hematocrit (Bld) [Volume fraction] 31.9 % Low 36.0-46.0 [facility] Comment on above: Order Comment: Speci men Type: BLOOD SPECIMENOrdering Facility: [facility] Address: [address] [place] [address] Performed By: #### 5 7021-8 ####[facility] HOSPITALNCTIFFANI [id number] [place] [address] [place] Hemoglobin (Bld) [Mass/Vol] 10.2 g/dL Low 11.5-15.5 [facility] Comment on above: Order Comment: Speci men Type: BLOOD SPECIMENOrdering Facility: [facility] Address: [address] [place] [address] Performed By: #### 5 7021-8 ####[facility]EN'S HOSPITALZEVFroy [id number] [place] [address] [place] Immature granulocytes (Bld) [#/Vol] 0.03 10*3/uL Normal <0.10 [facility] Comment on above: Order Comment: Speci men Type: BLOOD SPECIMENOrdering Facility: [facility] Address: [address] [place] [address] Performed By: #### 5 7021-8 ####[facility] HOS[facility]ITALNCLIA [id number] [place] [address] [place] Immature granulocytes/100 WBC (Bld) 0.6 % Normal [facility] Comment on above: Order Comment: Speci men Type: BLOOD SPECIMENOrdering Facility: [facility] Address: [address] [place] [address] Performed By: #### 5 7021-8 ####[facility] FLORIDAWNCLIA [id number] [place] [address] [place] Lymphocytes (Bld) [#/Vol] 0.15 10*3/uL Low 1.00-4.00 [facility] Comment on above: Order Comment: Speci men Type: BLOOD SPECIMENOrdering Facility: [facility] Address: [address] [place] [address] Performed By: #### 5 7021-8 ####[facility]ITALA [id number] [place] [address] [place] Lymphocytes/100 WBC (Bld) 3.2 % Normal [facility] Comment on above: Order Comment: Speci men Type: BLOOD SPECIMENOrdering Facility: [facility] Address: [address] [place] [address] Performed By: #### 5 7021-8 ####[facility] [id number] [place] [address] [place] MCH (RBC) [Entitic mass] 28.2 pg Normal 26.0-34.0 [facility] Comment on above: Order Comment: Speci men Type: BLOOD SPECIMENOrdering Facility: [facility] Address: [address] [place] [address] Performed By: #### 5 7021-8 ####[facility]ITALA [id number] [place] [address] [place] MCHC (RBC) [Mass/Vol] 32.0 g/dL Normal 30.5-36.0 [facility] Comment on above: Order Comment: Speci men Type: BLOOD SPECIMENOrdering Facility: [facility] Address: [address] [place] [address] Performed By: #### 5 7021-8 ####[facility] HOSPITALNCLI [id number] [place] [address] [place] MCV (RBC) [Entitic vol] 88.1 fL Normal 80.0-100.0 [facility] Comment on above: Order Comment: Speci men Type: BLOOD SPECIMENOrdering Facility: [facility] Address: [address] [place] [address] Performed By: #### 5 7021-8 ####[facility] HOSPITALNCA [id number] [place] [address] [place] Monocytes (Bld) [#/Vol] 0.72 10*3/uL Normal <0.87 [facility] Comment on above: Order Comment: Speci men Type: BLOOD SPECIMENOrdering Facility: [facility] Address: [address] [place] [address] Performed By: #### 5 7021-8 ####[facility] HOSPITALNCA [id number] [place] [address] [place] Monocytes/100 WBC (Bld) 15.5 % Normal [facility] Comment on above: Order Comment: Speci men Type: BLOOD SPECIMENOrdering Facility: [facility] Address: [address] [place] [address] Performed By: #### 5 7021-8 ####[facility] MEDICAL CENTERLIA [id number] [place] [address] [place] Neutrophils (Bld) [#/Vol] 3.55 10*3/uL Normal 1.45-7.50 [facility] Comment on above: Order Comment: Speci men Type: BLOOD SPECIMENOrdering Facility: [facility] Address: [address] [place] [address] Performed By: #### 5 7021-8 ####[facility] HOS[facility]ITALNCLIA [id number] [place] [address] [place] Neutrophils/100 WBC (Bld) 76.2 % Normal [facility] Comment on above: Order Comment: Speci men Type: BLOOD SPECIMENOrdering Facility: [facility] Address: [address] [place] [address] Performed By: #### 5 7021-8 ####[facility] HOSPITALNICOLE [id number] [place] [address] [place] Nucleated RBC (Bld) [#/Vol] 10*3/uL Normal <0.01 [facility] Comment on above: Order Comment: Speci men Type: BLOOD SPECIMENOrdering Facility: [facility] Address: [address] [place] [address] Performed By: #### 5 7021-8 ####[facility] [id number] [place] [address] [place] Nucleated RBC/100 WBC (Bld) [Ratio] 0.0 /100 WBC Normal [facility] Comment on above: Order Comment: Speci men Type: BLOOD SPECIMENOrdering Facility: [facility] Address: [address] [place] [address] Performed By: #### 5 7021-8 ####[facility] [id number] [place] [address] [place] Platelet mean volume (Bld) [Entitic vol] 9.3 fL Normal 9.0-12.7 [facility] Comment on above: Order Comment: Speci men Type: BLOOD SPECIMENOrdering Facility: [facility] Address: [address] [place] [address] Performed By: #### 5 7021-8 ####[facility] [id number] [place] [address] [place] Platelets (Bld) [#/Vol] 173 10*3/uL Normal 150-400 [facility] Comment on above: Order Comment: Speci men Type: BLOOD SPECIMENOrdering Facility: [facility] Address: [address] [place] [address] Performed By: #### 5 7021-8 ####[facility] HOSPITALNCLIA [id number] [place] [address] [place] RBC (Bld) [#/Vol] 3.62 10*6/uL Low 3.90-5.20 [facility] Comment on above: Order Comment: Speci men Type: BLOOD SPECIMENOrdering Facility: [facility] Address: [address] [place] [address] Performed By: #### 5 7021-8 ####[facility] HOS[facility]ITALNCLIA [id number] [place] [address] [place] WBC (Bld) [#/Vol] 4.66 10*3/uL Normal 3.70-11.00 [facility] Comment on above: Order Comment: Speci men Type: BLOOD SPECIMENOrdering Facility: [facility] Address: [address] [place] [address] Performed By: #### 5 7021-8 ####[facility] HOSPITALNCLIA [id number] [place] [address] [place] CNCNPATEDon 11-16-2024 CNCNPATED Normal [facility] metabolic 2000 panelOrdered By: Cyndie Zhou on 11-16-2024 Albumin [Mass/Vol] 3.5 g/dL Low 3.9 - 4.9 g/dL [facility] ALP [Catalytic activity/Vol] 63 U/L 34 - 123 U/L [facility] ALT [Catalytic activity/Vol] 9 U/L 7 - 38 U/L [facility] Anion gap [Moles/Vol] 8 mmol/L 8 - 15 mmol/L [facility] AST [Catalytic activity/Vol] 16 U/L 13 - 35 U/L [facility] Bilirubin [Mass/Vol] 0.2 mg/dL 0.2 - 1 .3 mg/dL [facility] Calcium [Mass/Vol] 9.2 mg/dL 8.5 - 10. 2 mg/dL [facility] Chloride [Moles/Vol] 99 mmol/L 98 - 10 7 mmol/L [facility] CO2 [Moles/Vol] 24 mmol/L 22 - 30 mmol/L [facility] Creatinine [Mass/Vol] 0.65 mg/dL 0.58 - 0.96 mg/dL [facility] GFR/1.73 sq M.predicted among non-blacks MDRD (S/P/Bld) [Vol rate/Area] 98 mL/min/{1.73_m2} - PINF [facility] Comment on above: Estimated Glomerular Filtration [...] 106 mg/dL High 74 - 99 mg/dL [facility] Comment on above: The [place] [employer] (ADA) provides guidance for [...] Standards of Medical Care in Diabetes 2016, [place] [employer]. Diabetes Care. 2016.39(Suppl 1). Interpretation and review of laboratory results Abnormal [facility] Potassium [Moles/Vol] 4 mmol/L 3.7 - 5.1 mmol/L [facility] Protein [Mass/Vol] 6.4 g/dL 6.3 - 8.0 g/dL [facility] Sodium [Moles/Vol] 131 mmol/L Low 136 - 144 mmol/L [facility] Urea nitrogen [Mass/Vol] 12 mg/dL 7 - 21 mg/dL [facility] metabolic 2000 panelon 11-16-2024 Albumin [Mass/Vol] 3.5 g/dL Low 3.9-4.9 [facility] Comment on above: Order Comment: Speci men Type: BLOOD SPECIMENOrdering Facility: [facility] Address: [address] [place] [address] Performed By: #### 2 4323-8 ####[facility] ALYSSATOWNCLIA [id number] [place] [address] [place] ALP [Catalytic activity/Vol] 63 U/L Normal 34-123 [facility] Comment on above: Order Comment: Speci men Type: BLOOD SPECIMENOrdering Facility: [facility] Address: [address] [place] [address] Performed By: #### 2 4323-8 ####[facility] MILLTOWNCLIA [id number] [place] [address] [place] ALT [Catalytic activity/Vol] 9 U/L Normal 7-38 [facility] Comment on above: Order Comment: Speci men Type: BLOOD SPECIMENOrdering Facility: [facility] Address: [address] [place] [address] Performed By: #### 2 4323-8 ####[facility] FLORIDAWNCLIA [id number] [place] [address] [place] Anion gap [Moles/Vol] 8 mmol/L Normal 8-15 [facility] Comment on above: Order Comment: Speci men Type: BLOOD SPECIMENOrdering Facility: [facility] Address: [address] [place] [address] Performed By: #### 2 4323-8 ####[facility] MILLTOWNCLIA [id number] [place] [address] [place] AST [Catalytic activity/Vol] 16 U/L Normal 13-35 [facility] Comment on above: Order Comment: Speci men Type: BLOOD SPECIMENOrdering Facility: [facility] Address: [address] [place] [address] Performed By: #### 2 4323-8 ####[facility] MILLTOWNCLIA [id number] [place] [address] [place] Bilirubin [Mass/Vol] 0.2 mg/dL Normal 0.2-1.3 [facility] Comment on above: Order Comment: Speci men Type: BLOOD SPECIMENOrdering Facility: [facility] Address: [address] [place] [address] Performed By: #### 2 4323-8 ####[facility] MILLWNCLIA [id number] [place] [address] [place] Calcium [Mass/Vol] 9.2 mg/dL Normal 8.5-10.2 [facility] Comment on above: Order Comment: Speci men Type: BLOOD SPECIMENOrdering Facility: [facility] Address: [address] [place] [address] Performed By: #### 2 4323-8 ####[facility] HOS[facility]ITALNCLIA [id number] [place] [address] [place] Chloride [Moles/Vol] 99 mmol/L Normal 98-107 [facility] Comment on above: Order Comment: Speci men Type: BLOOD SPECIMENOrdering Facility: [facility] Address: [address] [place] [address] Performed By: #### 2 4323-8 ####[facility] FLORIDAWNCLIA [id number] [place] [address] [place] CO2 [Moles/Vol] 24 mmol/L Normal 22-30 [facility] Comment on above: Order Comment: Speci men Type: BLOOD SPECIMENOrdering Facility: [facility] Address: [address] [place] [address] Performed By: #### 2 4323-8 ####[facility] HOS[facility]ITALNCLIA [id number] [place] [address] [place] Creatinine [Mass/Vol] 0.65 mg/dL Normal 0.58-0.96 [facility] Comment on above: Order Comment: Mindy mcfarlane Type: BLOOD SPECIMENOrdering Facility: [facility] Address: [address] [place] [address] Performed By: #### 2 4323-8 ####[facility] [id number] [place] [address] [place] Creatinine and Glomerular filtration rate.predicted panel (S/P/Bld) 98 mL/min/1.73m??? Normal >=60 [facility] Comment on above: Order Comment: Mindy mcfarlane Type: BLOOD SPECIMENOrdering Facility: [facility] Address: [address] [place] [address] Result Comment: Sonia mated Glomerular Filtration Rate [...] actual GFR. Performed By: #### 2 4323-8 ####[facility] [id number] [place] [address] [place] Glucose [Mass/Vol] 106 mg/dL High 74-99 [facility] Comment on above: Order Comment: Mindy mcfarlane Type: BLOOD SPECIMENOrdering Facility: [facility] Address: [address] [place] [address] Result Comment: The [place] Diabetes Association (ADA) provides guidance for cutoff [...] Standards of Medical Care in Diabetes 2016, [place] [employer]. Diabetes Care. 2016.39(Suppl 1). Performed By: #### 2 4323-8 ####[facility] RIGOBERTO SHAHKEATONA [id number] [place] [address] [place] Potassium [Moles/Vol] 4.0 mmol/L Normal 3.7-5.1 [facility] Comment on above: Order Comment: Speci men Type: BLOOD SPECIMENOrdering Facility: [facility] Address: [address] [place] [address] Performed By: #### 2 4323-8 ####[facility] SERVICESMICK [id number] [place] [address] [place] Protein [Mass/Vol] 6.4 g/dL Normal 6.3-8.0 [facility] Comment on above: Order Comment: Speci men Type: BLOOD SPECIMENOrdering Facility: [facility] Address: [address] [place] [address] Performed By: #### 2 4323-8 ####[facility] HOSPITALHAMLETA [id number] [place] [address] [place] Sodium [Moles/Vol] 131 mmol/L Low 136-144 [facility] Comment on above: Order Comment: Speci men Type: BLOOD SPECIMENOrdering Facility: [facility] Address: [address] [place] [address] Performed By: #### 2 4323-8 ####[facility] SERVICESROBERTLIA [id number] [place] [address] [place] Urea nitrogen [Mass/Vol] 12 mg/dL Normal 7-21 [facility] Comment on above: Order Comment: Speci men Type: BLOOD SPECIMENOrdering Facility: [facility] Address: [address] [place] [address] Performed By: #### 2 4323-8 ####[facility] HOSPITALZEVTOOELE VALLEY [facility] [id number] [place] [address] [place] CNOVon 11-10-2024 CNOV Normal [facility] CBC W Auto Differential pane l (Bld)on 11-09-2024 Basophils (Bld) [#/Vol] 0.03 10*3/uL [facility] Basophils/100 WBC (Bld) 1.1 % C [facility] Differential cell count method Nom (Bld) Auto [facility] Eosinophils (Bld) [#/Vol] 0.09 10*3/uL [facility] Eosinophils/100 WBC (Bld) 3.4 % [facility] Erythrocyte distribution width (RBC) [Ratio] 20.2 % High 11.5 - 15.0 % [facility] Hematocrit (Bld) [Volume fraction] 32.4 % Low 36.0 - 46.0 % [facility] Hemoglobin (Bld) [Mass/Vol] 10.6 g/dL Low 11.5 - 15.5 g/dL [facility] Immature granulocytes (Bld) [#/Vol] [facility] Immature granulocytes/100 WBC (Bld) 0.8 % [facility] Interpretation and review of laboratory results Abnormal [facility] Lymphocytes (Bld) [#/Vol] 0.17 10*3/uL Low [facility] Lymphocytes/100 WBC (Bld) 6.5 % [facility] MCH (RBC) [Entitic mass] 28.3 pg 26.0 - 34.0 pg [facility] MCHC (RBC) [Mass/Vol] 32.7 g/dL 30.5 - 36.0 g/dL [facility] MCV (RBC) [Entitic vol] 86.6 fL 80.0 - 100.0 fL [facility] Monocytes (Bld) [#/Vol] 0.25 10*3/uL [facility] Monocytes/100 WBC (Bld) 9.6 % C [facility] Neutrophils (Bld) [#/Vol] 2.05 10*3/uL [facility] Neutrophils/100 WBC (Bld) 78.6 % [facility] Nucleated RBC (Bld) [#/Vol] [facility] Nucleated RBC/100 WBC (Bld) [Ratio] 0 % /100 WBC [facility] Platelet mean volume (Bld) [Entitic vol] 9.9 fL 9.0 - 12.7 fL [facility] Platelets (Bld) [#/Vol] 219 10*3/uL [facility] RBC (Bld) [#/Vol] 3.74 10*6/uL Low 3.90 - 5.2 0 m/uL [facility] WBC (Bld) [#/Vol] 2.61 10*3/uL Low [facility] Basophils (Bld) [#/Vol] 0.03 10*3/uL Normal <0.11 [facility] Comment on above: Order Comment: Speci men Type: BLOOD SPECIMENOrdering Facility: [facility] Address: [address] [place] [address] Performed By: #### 5 7021-8 ####[facility] [id number] [place] [address] [place] Basophils/100 WBC (Bld) 1.1 % Normal [facility] Comment on above: Order Comment: Speci men Type: BLOOD SPECIMENOrdering Facility: [facility] Address: [address] [place] [address] Performed By: #### 5 7021-8 ####[facility] [id number] [place] [address] [place] Differential cell count method Nom (Bld) Auto Normal [facility] Comment on above: Order Comment: Speci men Type: BLOOD SPECIMENOrdering Facility: [facility] Address: [address] [place] [address] Performed By: #### 5 7021-8 ####[facility] [id number] [place] [address] [place] Eosinophils (Bld) [#/Vol] 0.09 10*3/uL Normal <0.46 [facility] Comment on above: Order Comment: Speci men Type: BLOOD SPECIMENOrdering Facility: [facility] Address: [address] [place] [address] Performed By: #### 5 7021-8 ####[facility] MILLWNCLIA [id number] [place] [address] [place] Eosinophils/100 WBC (Bld) 3.4 % Normal [facility] Comment on above: Order Comment: Speci men Type: BLOOD SPECIMENOrdering Facility: [facility] Address: [address] [place] [address] Performed By: #### 5 7021-8 ####[facility] HOSPITALZEVLIA [id number] [place] [address] [place] Erythrocyte distribution width (RBC) [Ratio] 20.2 % High 11.5-15.0 [facility] Comment on above: Order Comment: Speci men Type: BLOOD SPECIMENOrdering Facility: [facility] Address: [address] [place] [address] Performed By: #### 5 7021-8 ####[facility] CENTERLIA [id number] [place] [address] [place] Hematocrit (Bld) [Volume fraction] 32.4 % Low 36.0-46.0 [facility] Comment on above: Order Comment: Speci men Type: BLOOD SPECIMENOrdering Facility: [facility] Address: [address] [place] [address] Performed By: #### 5 7021-8 ####[facility] FL[facility]IDAWNCLIA [id number] [place] [address] [place] Hemoglobin (Bld) [Mass/Vol] 10.6 g/dL Low 11.5-15.5 [facility] Comment on above: Order Comment: Speci men Type: BLOOD SPECIMENOrdering Facility: [facility] Address: [address] [place] [address] Performed By: #### 5 7021-8 ####[facility] HOSPITALNCLIA [id number] [place] [address] [place] Immature granulocytes (Bld) [#/Vol] 10*3/uL Normal <0.10 [facility] Comment on above: Order Comment: Speci men Type: BLOOD SPECIMENOrdering Facility: [facility] Address: [address] [place] [address] Performed By: #### 5 7021-8 ####[facility] CENTERLIA [id number] [place] [address] [place] Immature granulocytes/100 WBC (Bld) 0.8 % Normal [facility] Comment on above: Order Comment: Speci men Type: BLOOD SPECIMENOrdering Facility: [facility] Address: [address] [place] [address] Performed By: #### 5 7021-8 ####[facility] HOSPITALNCLI [id number] [place] [address] [place] Lymphocytes (Bld) [#/Vol] 0.17 10*3/uL Low 1.00-4.00 [facility] Comment on above: Order Comment: Speci men Type: BLOOD SPECIMENOrdering Facility: [facility] Address: [address] [place] [address] Performed By: #### 5 7021-8 ####[facility] CENTERLIA [id number] [place] [address] [place] Lymphocytes/100 WBC (Bld) 6.5 % Normal [facility] Comment on above: Order Comment: Speci men Type: BLOOD SPECIMENOrdering Facility: [facility] Address: [address] [place] [address] Performed By: #### 5 7021-8 ####[facility] HOSPITALNCLIA [id number] [place] [address] [place] MCH (RBC) [Entitic mass] 28.3 pg Normal 26.0-34.0 [facility] Comment on above: Order Comment: Speci men Type: BLOOD SPECIMENOrdering Facility: [facility] Address: [address] [place] [address] Performed By: #### 5 7021-8 ####[facility] NABILNCBLAKE [id number] [place] [address] [place] MCHC (RBC) [Mass/Vol] 32.7 g/dL Normal 30.5-36.0 [facility] Comment on above: Order Comment: Speci men Type: BLOOD SPECIMENOrdering Facility: [facility] Address: [address] [place] [address] Performed By: #### 5 7021-8 ####[facility] HOSPITALNICOLE [id number] [place] [address] [place] MCV (RBC) [Entitic vol] 86.6 fL Normal 80.0-100.0 C [facility] Comment on above: Order Comment: Speci men Type: BLOOD SPECIMENOrdering Facility: [facility] Address: [address] [place], [place] [id number] Performed By: #### 5 7021-8 ####[facility] HOSPITALNICOLE [id number] [place] [address] [place] Monocytes (Bld) [#/Vol] 0.25 10*3/uL Normal <0.87 [facility] Comment on above: Order Comment: Speci men Type: BLOOD SPECIMENOrdering Facility: [facility] Address: [address] [place] [address] Performed By: #### 5 7021-8 ####[facility] HOSPITALNCLIA [id number] [place] [address] [place] Monocytes/100 WBC (Bld) 9.6 % Normal C [facility] Comment on above: Order Comment: Speci men Type: BLOOD SPECIMENOrdering Facility: [facility] Address: [address] [place] [address] Performed By: #### 5 7021-8 ####[facility] MILLWNCLIA [id number] [place] [address] [place] Neutrophils (Bld) [#/Vol] 2.05 10*3/uL Normal 1.45-7.50 [facility] Comment on above: Order Comment: Speci men Type: BLOOD SPECIMENOrdering Facility: [facility] Address: [address] [place] [address] Performed By: #### 5 7021-8 ####[facility] MED[facility] CENTERLIA [id number] [place] [address] [place] Neutrophils/100 WBC (Bld) 78.6 % Normal [facility] Comment on above: Order Comment: Speci men Type: BLOOD SPECIMENOrdering Facility: [facility] Address: [address] [place] [address] Performed By: #### 5 7021-8 ####[facility] MEDICAL CENTERLIA [id number] [place] [address] [place] Nucleated RBC (Bld) [#/Vol] 10*3/uL Normal <0.01 [facility] Comment on above: Order Comment: Speci men Type: BLOOD SPECIMENOrdering Facility: [facility] Address: [address] [place] [address] Performed By: #### 5 7021-8 ####[facility] CENTERLIA [id number] [place] [address] [place] Nucleated RBC/100 WBC (Bld) [Ratio] 0.0 /100 WBC Normal [facility] Comment on above: Order Comment: Speci men Type: BLOOD SPECIMENOrdering Facility: [facility] Address: [address] [place] [address] Performed By: #### 5 7021-8 ####[facility] HOSPITALNCTOOELE VAL[facility] [id number] [place] [address] [place] Platelet mean volume (Bld) [Entitic vol] 9.9 fL Normal 9.0-12.7 [facility] Comment on above: Order Comment: Speci men Type: BLOOD SPECIMENOrdering Facility: [facility] Address: [address] [place] [address] Performed By: #### 5 7021-8 ####[facility] ALYSSAPHOENIXNICOLE [id number] [place] [address] [place] Platelets (Bld) [#/Vol] 219 10*3/uL Normal 150-400 [facility] Comment on above: Order Comment: Speci men Type: BLOOD SPECIMENOrdering Facility: [facility] Address: [address] [place] [address] Performed By: #### 5 7021-8 ####[facility]S HOSPITALHAMLETFroy [id number] [place] [address] [place] RBC (Bld) [#/Vol] 3.74 10*6/uL Low 3.90-5.20 [facility] Comment on above: Order Comment: Speci men Type: BLOOD SPECIMENOrdering Facility: [facility] Address: [address] [place] [address] Performed By: #### 5 7021-8 ####[facility] HOSPITALNCLIA [id number] [place] [address] [place] WBC (Bld) [#/Vol] 2.61 10*3/uL Low 3.70-11.00 [facility] Comment on above: Order Comment: Speci men Type: BLOOD SPECIMENOrdering Facility: [facility] Address: [address] [place] [address] Performed By: #### 5 7021-8 ####[facility]S HOSPITALNCLIA [id number] [place] [address] [place] CNOVSPon 11-09-2024 CNOVSP Normal [facility] metabolic 2000 panelOrdered By: Frannie Puente on 11-09-2024 Albumin [Mass/Vol] 3.7 g/dL Low 3.9 - 4.9 g/dL [facility] ALP [Catalytic activity/Vol] 68 U/L 34 - 123 U/L [facility] ALT [Catalytic activity/Vol] 13 U/L 7 - 38 U/L [facility] Anion gap [Moles/Vol] 11 mmol/L 8 - 15 mmol/L [facility] AST [Catalytic activity/Vol] 15 U/L 13 - 35 U/L [facility] Bilirubin [Mass/Vol] 0.2 mg/dL 0.2 - 1 .3 mg/dL [facility] Calcium [Mass/Vol] 9.7 mg/dL 8.5 - 10. 2 mg/dL [facility] Chloride [Moles/Vol] 98 mmol/L 98 - 10 7 mmol/L [facility] CO2 [Moles/Vol] 24 mmol/L 22 - 30 mmol/L [facility] Creatinine [Mass/Vol] 0.64 mg/dL 0.58 - 0.96 mg/dL [facility] GFR/1.73 sq M.predicted among non-blacks MDRD (S/P/Bld) [Vol rate/Area] 98 mL/min/{1.73_m2} - PINF [facility] Comment on above: Estimated Glomerular Filtration [...] 103 mg/dL High 74 - 99 mg/dL [facility] Comment on above: The [place] Di[employer] Association (ADA) provides guidance for [...] Standards of Medical Care in Diabetes 2016, [place] [employer]. Diabetes Care. 2016.39(Suppl 1). Interpretation and review of laboratory results Abnormal [facility] Potassium [Moles/Vol] 4.1 mmol/L 3.7 - 5.1 mmol/L [facility] Protein [Mass/Vol] 6.5 g/dL 6.3 - 8.0 g/dL [facility] Sodium [Moles/Vol] 133 mmol/L Low 136 - 144 mmol/L [facility] Urea nitrogen [Mass/Vol] 15 mg/dL 7 - 21 mg/dL [facility] Comprehensive metabolic 2000 panelon 11-09-2024 Albumin [Mass/Vol] 3.7 g/dL Low 3.9-4.9 [facility] Comment on above: Order Comment: Speci men Type: BLOOD SPECIMENOrdering Facility: [facility] Address: [address] [place] [address] Performed By: #### 2 4323-8 ####[facility] CENTERLI [id number] [place] [address] [place] ALP [Catalytic activity/Vol] 68 U/L Normal 34-123 [facility] Comment on above: Order Comment: Stanislavi men Type: BLOOD SPECIMENOrdering Facility: [facility] Address: [address] [place] [address] Performed By: #### 2 4323-8 ####[facility] CENTERLIA [id number] [place] [address] [place] ALT [Catalytic activity/Vol] 13 U/L Normal 7-38 [facility] Comment on above: Order Comment: Stanislavi men Type: BLOOD SPECIMENOrdering Facility: [facility] Address: [address] [place] [address] Performed By: #### 2 4323-8 ####[facility]S HOSPITALNCLIA [id number] [place] [address] [place] Anion gap [Moles/Vol] 11 mmol/L Normal 8-15 [facility] Comment on above: Order Comment: Speci men Type: BLOOD SPECIMENOrdering Facility: [facility] Address: [address] [place] [address] Performed By: #### 2 4323-8 ####[facility] FLORIDAWKSLIA [id number] [place] [address] [place] AST [Catalytic activity/Vol] 15 U/L Normal 13-35 [facility] Comment on above: Order Comment: Speci men Type: BLOOD SPECIMENOrdering Facility: [facility] Address: [address] [place] [address] Performed By: #### 2 4323-8 ####[facility] HOSPITALA [id number] [place] [address] [place] Bilirubin [Mass/Vol] 0.2 mg/dL Normal 0.2-1.3 [facility] Comment on above: Order Comment: Speci men Type: BLOOD SPECIMENOrdering Facility: [facility] Address: [address] [place] [address] Performed By: #### 2 4323-8 ####[facility] CENTERLIA [id number] [place] [address] [place] Calcium [Mass/Vol] 9.7 mg/dL Normal 8.5-10.2 [facility] Comment on above: Order Comment: Speci men Type: BLOOD SPECIMENOrdering Facility: [facility] Address: [address] [place], [place] [address] Performed By: #### 2 4323-8 ####[facility] HOSPITALNCLIA [id number] [place] [address] [place] Chloride [Moles/Vol] 98 mmol/L Normal 98-107 [facility] Comment on above: Order Comment: Speci men Type: BLOOD SPECIMENOrdering Facility: [facility] Address: [address] [place] [address] Performed By: #### 2 4323-8 ####[facility] [id number] [place] [address] [place] CO2 [Moles/Vol] 24 mmol/L Normal 22-30 [facility] Comment on above: Order Comment: Speci men Type: BLOOD SPECIMENOrdering Facility: [facility] Address: [address] [place] [address] Performed By: #### 2 4323-8 ####[facility] [id number] [place] [address] [place] Creatinine [Mass/Vol] 0.64 mg/dL Normal 0.58-0.96 [facility] Comment on above: Order Comment: Speci men Type: BLOOD SPECIMENOrdering Facility: [facility] Address: [address] [place] [address] Performed By: #### 2 4323-8 ####[facility] [id number] [address] [place] Creatinine and Glomerular filtration rate.predicted panel (S/P/Bld) 98 mL/min/1.73m??? Normal >=60 [facility] Comment on above: Order Comment: Speci men Type: BLOOD SPECIMENOrdering Facility: [facility] Address: [address] [place] [address] Result Comment: Sonia mated Glomerular Filtration Rate [...] actual GFR. Performed By: #### 2 4323-8 ####[facility]S HOSPITALNCLI [id number] [place] [address] [place] Glucose [Mass/Vol] 103 mg/dL High 74-99 [facility] Comment on above: Order Comment: Speci men Type: BLOOD SPECIMENOrdering Facility: [facility] Address: [address] [place] [address] Result Comment: The [place] Diabetes Association (ADA) provides guidance for cutoff [...] Standards of Medical Care in Diabetes 2016, [place] Diabetes [employer]. Diabetes Care. 2016.39(Suppl 1). Performed By: #### 2 4323-8 ####[facility] HE[facility] SERVICESTOWZEVLIA [id number] [place] [address] [place] Potassium [Moles/Vol] 4.1 mmol/L Normal 3.7-5.1 [facility] Comment on above: Order Comment: Speci men Type: BLOOD SPECIMENOrdering Facility: [facility] Address: [address] [place] [address] Performed By: #### 2 4323-8 ####[facility] FLORIDAWNCLIA [id number] [place] [address] [place] Protein [Mass/Vol] 6.5 g/dL Normal 6.3-8.0 [facility] Comment on above: Order Comment: Speci men Type: BLOOD SPECIMENOrdering Facility: [facility] Address: [address] [place], [place] [address] Performed By: #### 2 4323-8 ####[facility]DREN'S HOSPITALZEVLIA [id number] [place] [address] [place] Sodium [Moles/Vol] 133 mmol/L Low 136-144 [facility] Comment on above: Order Comment: Speci men Type: BLOOD SPECIMENOrdering Facility: [facility] Address: [address] [place] [address] Performed By: #### 2 4323-8 ####[facility] [id number] [place] [address] [place] Urea nitrogen [Mass/Vol] 15 mg/dL Normal 7-21 [facility] Comment on above: Order Comment: Speci men Type: BLOOD SPECIMENOrdering Facility: [facility] Address: [address] [place] [address] Performed By: #### 2 4323-8 ####[facility] [id number] [place] [address] [place] CNPNon 11-05-2024 CNPN Normal [facility] CNOVon 11-03-2024 CNOV Normal [facility] BRIEF OP NOTon 10-30-2024 BRIEF OP NOT HNO ID: [id number] Author: ORTEGA CARDENAS MD Service: Radiology Author Type: Physician Type: Brief Op Note Filed: 10/30/2024 14:35 Note Text: RADIOLOGY BRIEF PROCEDURE NOTE LOG ID: [id number] Surgery/Procedure Date: 10/30/2024 Incision/Procedure Start Time: 1:53 PM Incision Close/Procedure End Time: 2:28 PM Informed Consent obtained under separate note. ATTENDING RADIOLOGIST: Interventional: Dr. Ortega Cardenas DRIVEWAY SEALER: None PRE-PROCEDURAL DIAGNOSIS: Anal cancer ANESTHESIA: Procedural Sedation PROCEDURE: A ported central venous catheter was placed via the right internal jugular vein under imaging guidance. POST-PROCEDURAL DIAGNOSIS: Same COMPLICATIONS: None ESTIMATED BLOOD LOSS: Minimal INDWELLING DEVICES: Vaccess CT Power-Injectable Port with 8 Nepalese polyurethane catheter SPECIMENS: None DISPOSITION: Patient hemodynamically stable, alert and awake. Patient transferred to Radiology Recovery/PACU for monitoring prior to anticipated discharge home. FULL REPORT TO FOLLOW (under the Imaging tab in the Chart Review section) SIGNATURE: Ortega Cardenas MD PATIENT NAME: Marimar Wang DATE: October 30, 2024 TIME: 2:33 PM CONTACT #: [phone] [facility] Brain/Head without Contrasto n 10-30-2024 Brain/Head without Contrast [facility] Imaging Services [address] [place] [address] Brain/Head without Contrast MR#: [id number] Acct: [id number] Name: MARIMAR WANG Rep #: [id number] : 1960 F 64 From: Jaiden Mariee MD PCP: STEFANO ArriolaC Status: REG ER Study: Brain/Head without Contrast Date of Exam: 11/20 Exam# [id number] Ordering Dr: Gaudencio Ambriz DO PROCEDURE: BRAIN/HEAD [...] fracture. Reading Location: [facility] CC: 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MadayC Julio Arriaga; Gaudencio Ambriz DO Pumping Plant Operator: Signed Normal [facility] CBC W Auto Differential pane l (Bld)on 10-30-2024 Basophils (Bld) [#/Vol] 0.04 10*3/uL Normal <0.11 [facility] Comment on above: Order Comment: Speci men Type: BLOOD SPECIMENOrdering Facility: [facility] Address: [address] [place] [address] Performed By: #### 5 7021-8 ####[facility] MILLWNCLIA [id number] [place] [address] [place] Basophils/100 WBC (Bld) 1.0 % Normal [facility] Comment on above: Order Comment: Speci men Type: BLOOD SPECIMENOrdering Facility: [facility] Address: [address] [place] [address] Performed By: #### 5 7021-8 ####[facility] CENTERLIA [id number] [place] [address] [place] Differential cell count method Nom (Bld) Auto Normal [facility] Comment on above: Order Comment: Speci men Type: BLOOD SPECIMENOrdering Facility: [facility] Address: [address] [place] [address] Performed By: #### 5 7021-8 ####[facility] CENTERLIA [id number] [place] [address] [place] Eosinophils (Bld) [#/Vol] 10*3/uL Normal <0.46 [facility] Comment on above: Order Comment: Speci men Type: BLOOD SPECIMENOrdering Facility: [facility] Address: [address] [place] [address] Performed By: #### 5 7021-8 ####[facility] HOSPITALA [id number] [place] [address] [place] Eosinophils/100 WBC (Bld) 0.5 % Normal [facility] Comment on above: Order Comment: Speci men Type: BLOOD SPECIMENOrdering Facility: [facility] Address: [address] [place] [address] Performed By: #### 5 7021-8 ####[facility] CENTERLIA [id number] [place] [address] [place] Erythrocyte distribution width (RBC) [Ratio] 20.9 % High 11.5-15.0 [facility] Comment on above: Order Comment: Speci men Type: BLOOD SPECIMENOrdering Facility: [facility] Address: [address] [place] [address] Performed By: #### 5 7021-8 ####[facility] [id number] [place] [address] [place] Hematocrit (Bld) [Volume fraction] 34.4 % Low 36.0-46.0 [facility] Comment on above: Order Comment: Speci men Type: BLOOD SPECIMENOrdering Facility: [facility] Address: [address] [place] [address] Performed By: #### 5 7021-8 ####[facility] HOSPITALNCTOOELE VALLEY [facility] [id number] [place] [address] [place] Hemoglobin (Bld) [Mass/Vol] 10.9 g/dL Low 11.5-15.5 [facility] Comment on above: Order Comment: Speci men Type: BLOOD SPECIMENOrdering Facility: [facility] Address: [address] [place] [address] Performed By: #### 5 7021-8 ####[facility] [id number] [place] [address] [place] Immature granulocytes (Bld) [#/Vol] 10*3/uL Normal <0.10 [facility] Comment on above: Order Comment: Speci men Type: BLOOD SPECIMENOrdering Facility: [facility] Address: [address] [place] [address] Performed By: #### 5 7021-8 ####[facility]DR[facility]'S HOSPITALNCLI [id number] [place] [address] [place] Immature granulocytes/100 WBC (Bld) 0.5 % Normal [facility] Comment on above: Order Comment: Speci men Type: BLOOD SPECIMENOrdering Facility: [facility] Address: [address] [place] [address] Performed By: #### 5 7021-8 ####[facility] ALYSSAPHOENIXNICOLE [id number] [place] [address] [place] Lymphocytes (Bld) [#/Vol] 0.31 10*3/uL Low 1.00-4.00 [facility] Comment on above: Order Comment: Speci men Type: BLOOD SPECIMENOrdering Facility: [facility] Address: [address] [place] [address] Performed By: #### 5 7021-8 ####[facility] [id number] [place] [address] [place] Lymphocytes/100 WBC (Bld) 7.7 % Normal [facility] Comment on above: Order Comment: Speci men Type: BLOOD SPECIMENOrdering Facility: [facility] Address: [address] [place] [address] Performed By: #### 5 7021-8 ####[facility] MEDICAL CENTERBLAKE [id number] [place] [address] [place] MCH (RBC) [Entitic mass] 27.3 pg Normal 26.0-34.0 [facility] Comment on above: Order Comment: Speci men Type: BLOOD SPECIMENOrdering Facility: [facility] Address: [address] [place] [address] Performed By: #### 5 7021-8 ####[facility] CENTERLIA [id number] [place] [address] [place] MCHC (RBC) [Mass/Vol] 31.7 g/dL Normal 30.5-36.0 [facility] Comment on above: Order Comment: Speci men Type: BLOOD SPECIMENOrdering Facility: [facility] Address: [address] [place] [address] Performed By: #### 5 7021-8 ####[facility] ALYSSAWNCLIA [id number] [place] [address] [place] MCV (RBC) [Entitic vol] 86.2 fL Normal 80.0-100.0 [facility] Comment on above: Order Comment: Speci men Type: BLOOD SPECIMENOrdering Facility: [facility] Address: [address] [place] [address] Performed By: #### 5 7021-8 ####[facility] [id number] [place] [address] [place] Monocytes (Bld) [#/Vol] 0.47 10*3/uL Normal <0.87 [facility] Comment on above: Order Comment: Speci men Type: BLOOD SPECIMENOrdering Facility: [facility] Address: [address] [place] [address] Performed By: #### 5 7021-8 ####[facility] [id number] [place] [address] [place] Monocytes/100 WBC (Bld) 11.7 % Normal C [facility] Comment on above: Order Comment: Speci men Type: BLOOD SPECIMENOrdering Facility: [facility] Address: [address] [place] [address] Performed By: #### 5 7021-8 ####[facility] CENTERLIA [id number] [place] [address] [place] Neutrophils (Bld) [#/Vol] 3.16 10*3/uL Normal 1.45-7.50 [facility] Comment on above: Order Comment: Speci men Type: BLOOD SPECIMENOrdering Facility: [facility] Address: [address] [place] [address] Performed By: #### 5 7021-8 ####[facility] HOSPITALNCLIA [id number] [place] [address] [place] Neutrophils/100 WBC (Bld) 78.6 % Normal [facility] Comment on above: Order Comment: Speci men Type: BLOOD SPECIMENOrdering Facility: [facility] Address: [address] [place] [address] Performed By: #### 5 7021-8 ####[facility] HOSPITALNCTOOELE VALLEY [facility] [id number] [place] [address] [place] Nucleated RBC (Bld) [#/Vol] 10*3/uL Normal <0.01 [facility] Comment on above: Order Comment: Speci men Type: BLOOD SPECIMENOrdering Facility: [facility] Address: [address] [place] [address] Performed By: #### 5 7021-8 ####[facility] [id number] [place] [address] [place] Nucleated RBC/100 WBC (Bld) [Ratio] 0.0 /100 WBC Normal [facility] Comment on above: Order Comment: Speci men Type: BLOOD SPECIMENOrdering Facility: [facility] Address: [address] [place] [address] Performed By: #### 5 7021-8 ####[facility] HOSPITALNCTOOELE VALLEY [facility]PITAL [id number] [place] [address] [place] Platelet mean volume (Bld) [Entitic vol] 9.7 fL Normal 9.0-12.7 [facility] Comment on above: Order Comment: Speci men Type: BLOOD SPECIMENOrdering Facility: [facility] Address: [address] [place] [address] Performed By: #### 5 7021-8 ####[facility] [id number] [place] [address] [place] Platelets (Bld) [#/Vol] 179 10*3/uL Normal 150-400 [facility] Comment on above: Order Comment: Speci men Type: BLOOD SPECIMENOrdering Facility: [facility] Address: [address] [place] [address] Performed By: #### 5 7021-8 ####[facility] NINA [id number] [place] [address] [place] RBC (Bld) [#/Vol] 3.99 10*6/uL Normal 3.90-5.20 [facility] Comment on above: Order Comment: Speci men Type: BLOOD SPECIMENOrdering Facility: [facility] Address: [address] [place] [address] Performed By: #### 5 7021-8 ####[facility] NABILNCBLAKE [id number] [place] [address] [place] WBC (Bld) [#/Vol] 4.02 10*3/uL Normal 3.70-11.00 [facility] Comment on above: Order Comment: Speci men Type: BLOOD SPECIMENOrdering Facility: [facility] Address: [address] [place] [address] Performed By: #### 5 7021-8 ####[facility] ALYSSAJamirNCLIA [id number] [place] [address] [place] CNOVSPon 10-30-2024 CNOVSP Normal [facility] Comprehensive metabolic 2000 panelon 10-30-2024 Albumin [Mass/Vol] 3.9 g/dL Normal 3.9-4.9 [facility] Comment on above: Order Comment: Speci men Type: BLOOD SPECIMENOrdering Facility: [facility] Address: [address] [place], [place] [address] Performed By: #### 2 4323-8 ####[facility] ALYSSAPHOENIXNCLIA [id number] [place] [address] [place] ALP [Catalytic activity/Vol] 81 U/L Normal 34-123 [facility] Comment on above: Order Comment: Speci men Type: BLOOD SPECIMENOrdering Facility: [facility] Address: [address] [place] [address] Performed By: #### 2 4323-8 ####[facility] MILLTOWNCLIA [id number] [place] [address] [place] ALT [Catalytic activity/Vol] 17 U/L Normal 7-38 [facility] Comment on above: Order Comment: Speci men Type: BLOOD SPECIMENOrdering Facility: [facility] Address: [address] [place] [address] Performed By: #### 2 4323-8 ####[facility] HOSPITALNCLIA [id number] [place] [address] [place] Anion gap [Moles/Vol] 8 mmol/L Normal 8-15 [facility] Comment on above: Order Comment: Speci men Type: BLOOD SPECIMENOrdering Facility: [facility] Address: [address] [place] [address] Performed By: #### 2 4323-8 ####[facility] HOSPITALNCLIA [id number] [place] [address] [place] AST [Catalytic activity/Vol] 21 U/L Normal 13-35 [facility] Comment on above: Order Comment: Speci men Type: BLOOD SPECIMENOrdering Facility: [facility] Address: [address] [place] [address] Performed By: #### 2 4323-8 ####[facility] MILLTOWNCLIA [id number] [place] [address] [place] Bilirubin [Mass/Vol] 0.4 mg/dL Normal 0.2-1.3 [facility] Comment on above: Order Comment: Speci men Type: BLOOD SPECIMENOrdering Facility: [facility] Address: [address] [place] [address] Performed By: #### 2 4323-8 ####[facility] MILLPHOENIXNCLIA [id number] [place] [address] [place] Calcium [Mass/Vol] 9.6 mg/dL Normal 8.5-10.2 [facility] Comment on above: Order Comment: Speci men Type: BLOOD SPECIMENOrdering Facility: [facility] Address: [address] [place] [address] Performed By: #### 2 4323-8 ####[facility] MILLWNCLIA [id number] [place] [address] [place] Chloride [Moles/Vol] 102 mmol/L Normal 98-107 [facility] Comment on above: Order Comment: Speci men Type: BLOOD SPECIMENOrdering Facility: [facility] Address: [address] [place] [address] Performed By: #### 2 4323-8 ####[facility] HOSPITALNCLIA [id number] [place] [address] [place] CO2 [Moles/Vol] 26 mmol/L Normal 22-30 [facility] Comment on above: Order Comment: Speci men Type: BLOOD SPECIMENOrdering Facility: [facility] Address: [address] [place] [address] Performed By: #### 2 4323-8 ####[facility] MILLWNCLIA [id number] [place] [address] [place] Creatinine [Mass/Vol] 0.65 mg/dL Normal 0.58-0.96 [facility] Comment on above: Order Comment: Speci men Type: BLOOD SPECIMENOrdering Facility: [facility] Address: [address] [place] [address] Performed By: #### 2 4323-8 ####[facility] MILLPHOENIXNCLIA [id number] [place] [address] [place] Creatinine and Glomerular filtration rate.predicted panel (S/P/Bld) 98 mL/min/1.73m??? Normal >=60 [facility] Comment on above: Order Comment: Mindy mcfarlane Type: BLOOD SPECIMENOrdering Facility: [facility] Address: [address] [id number] Result Comment: Sonia mated Glomerular Filtration Rate [...] actual GFR. Performed By: #### 2 4323-8 ####[facility] [id number] [place] [address] [place] Glucose [Mass/Vol] 111 mg/dL High 74-99 [facility] Comment on above: Order Comment: Mindy mcfarlane Type: BLOOD SPECIMENOrdering Facility: [facility] Address: [address] [place] [address] Result Comment: The [place] [employer] (ADA) provides guidance for cutoff [...] Standards of Medical Care in Diabetes 2016, [place] [employer]. Diabetes Care. 2016.39(Suppl 1). Performed By: #### 2 4323-8 ####[facility] [id number] [place] [address] [place] Potassium [Moles/Vol] 3.7 mmol/L Normal 3.7-5.1 [facility] Comment on above: Order Comment: Mindy mcfarlane Type: BLOOD SPECIMENOrdering Facility: [facility] Address: [address] [place], [place] [address] Performed By: #### 2 4323-8 ####[facility] HOSPITALNCLI [id number] [place] [address] [place] Protein [Mass/Vol] 6.9 g/dL Normal 6.3-8.0 [facility] Comment on above: Order Comment: Speci men Type: BLOOD SPECIMENOrdering Facility: [facility] Address: [address] [place] [address] Performed By: #### 2 4323-8 ####[facility] HOSPITALNCTOOELE VALLEY [facility] [id number] [place] [address] [place] Sodium [Moles/Vol] 136 mmol/L Normal 136-144 [facility] Comment on above: Order Comment: Speci men Type: BLOOD SPECIMENOrdering Facility: [facility] Address: [address] [place] [address] Performed By: #### 2 4323-8 ####[facility] HOSPITALNCLIA [id number] [place] [address] [place] Urea nitrogen [Mass/Vol] 6 mg/dL Low 7-21 [facility] Comment on above: Order Comment: Speci men Type: BLOOD SPECIMENOrdering Facility: [facility] Address: [address] [place] [address] Performed By: #### 2 4323-8 ####[facility] HOSPITALNCLIA [id number] [place] [address] [place] Emergency Department Summary on 10-30-2024 Emergency Department Summary [facility] Medical Records Department [address] [place] [address] Emergency Department Summary 10/30/24 MR#: [id number] Acct: [id number] Name: MARIMAR WANG Rep #: [id number] : 1960 64 From: Gaudencio Ambriz DO PCP: Julio Arriaga NP-C Status:DEP ER Location: ED HPI History of [...] therefore she was brought in for evaluation [facility] Medical History Squamous cell cancer of [...] [facility] MENTAL HEALTH 6 09/01/24 History peg 276-oxkxtrxxhmpy-pbhonyy n 1 1 drp OP 4X/DAY DRY [...] Constipation Unknown History gram/dose oral powder (Miralax) vjaqwg-riavierv-ijqsrze See Rx Instructions PO .COMPLEX 09/01/24 Rx [...] Rx capsule,delayed (more content not included)... Normal [facility] HIP, UNI W/ Pelvis 2-3 Views on 10-30-2024 HIP, UNI W/ Pelvis 2-3 Views [facility] Imaging Services [address] [place], [place] [id number] HIP, UNI W/ Pelvis 2-3 Views MR#: [id number] Acct: [id number] Name: MARIMAR WANG Rep #: [id number] : 1960 F 64 From: Jaiden Mariee MD PCP: SINAI Arriola Status: REG ER Study: HIP, UNI W/ Pelvis 2-3 Views Date of Exam: 11/20 Exam# [id number] Ordering Dr: Gaudencio Ambriz DO PROCEDURE: HIP, [...] lower left sacroiliac joint noted. Reading Location: [facility] CC: 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-C Julio Arriaga; Gaudencio Ambriz DO Pumping Plant Operator: Signed Normal [facility] HISTORY PHYSICALon HISTORY PHYSICAL HNO ID: [id number] Author: ORTEGA CARDENAS MD Service: Radiology Author [...] 01/30/2019 Carotid artery stenosis bilateral- US in [facility] COPD (chronic obstructive pulmonary disease) [...] mg by mouth once daily. 10/29/2024 Yes ntoyyu-qhclbhrf-yizyapp (CREON 36) 36,000-114,000- 180,000 unit delayed release [...] Patient not taking: Reported on 10/30/2024 10/28/2024 msaixahjmeMXHBC-xbokwp-j idocaine (BMX 1:1:1) 1:1:1 liqd Take 10 mL by mouth every 4 hours as needed. iv contrast (will be provided with radiology test) CT Chest W -Inject, intravenously, once for 1 dose.No IV access, insert saline lock prior to the beginning of se (more content not included)... Normal [facility] IR FLU GD RIO CVA PLACEon IR FLU GD RIO CVA PLACE * * *Final Repor t* * * DATE OF EXAM: Oct 30 2024 2:27PM [facility] 7444 - IR FLU GD RIO CVA PLACE / PROCEDURE REASON: [...] placed: Vaccess CT Power-Injectable Port with 8 Nepalese polyurethane catheter Catheter tip position: Cavoatrial junction [...] INSERTION OF RIGHT-SI (more content not included)... [facility] IR PORTOCATH PLACEMENTon IR PORTOCATH PLACEMENT * * *Final Report * * * DATE OF EXAM: Oct 30 2024 2:27PM [facility] 8966 - IR PORTOCATH PLACEMENT / PROCEDURE [...] placed: Vaccess CT Power-Injectable Port with 8 Nepalese polyurethane catheter Catheter tip position: Cavoatrial junction [...] INSERTION OF RIGHT-NENITA (more content not included)... [facility] IR US VASCULAR ACCESS GUIDEo n 10-30-2024 IR US VASCULAR ACCESS GUIDE * * *Final Report* * * DATE OF EXAM: Oct 30 2024 2:27PM [facility] 7765 - IR US VASCULAR ACCESS GUIDE / PROCEDURE REASON: [...] placed: Vaccess CT Power-Injectable Port with 8 Nepalese polyurethane catheter Catheter tip position: Cavoatrial junction [...] INSERTION OF RIGH (more content not included)... [facility] NURSING PROGon 10-30-2024 NURSING PROG HNO ID: [id number] Author: JACKIE CANDELARIA, RN Service: Nursing Author Type: Registered Nurse Type: Nursing Progress Note Filed: 11/02/2024 17:59 Note Text: Completed post procedure phone call. Vidya is feeling well and has returned to her baseline diet and activity. Vidya denies questions or concerns related to she appointment and had no surgical site concerns. [facility] NURSING PROG HNO ID: [id number] Author: RADHA QUIROZ, LÓPEZ Service: ? Author Type: Registered Nurse Type: [...] (RECOMMENDATION): None Electronically Signed By: Radha Quiroz [facility] CNPNon 10-28-2024 CNPN [facility] CNOVon 10-27-2024 CNOV [facility] CBC W Auto Differential pane l (Bld)on 10-26-2024 Basophils (Bld) [#/Vol] 0.04 10*3/uL Normal <0.11 [facility] Comment on above: Order Comment: Speci men Type: BLOOD SPECIMENOrdering Facility: [facility] Address: [address] [place] [address] Performed By: #### 5 7021-8 ####[facility] MILLWNCLIA [id number] [place] [address] [place] Basophils/100 WBC (Bld) 1.7 % Normal [facility] Comment on above: Order Comment: Speci men Type: BLOOD SPECIMENOrdering Facility: [facility] Address: [address] [place] [address] Performed By: #### 5 7021-8 ####[facility] CENTERLIA [id number] [place] [address] [place] Differential cell count method Nom (Bld) Auto Normal [facility] Comment on above: Order Comment: Speci men Type: BLOOD SPECIMENOrdering Facility: [facility] Address: [address] [place] [address] Performed By: #### 5 7021-8 ####[facility] CENTERLIA [id number] [place] [address] [place] Eosinophils (Bld) [#/Vol] 10*3/uL Normal <0.46 [facility] Comment on above: Order Comment: Speci men Type: BLOOD SPECIMENOrdering Facility: [facility] Address: [address] [place] [address] Performed By: #### 5 7021-8 ####[facility] CENTERLIA [id number] [place] [address] [place] Eosinophils/100 WBC (Bld) 0.4 % Normal [facility] Comment on above: Order Comment: Speci men Type: BLOOD SPECIMENOrdering Facility: [facility] Address: [address] [place] [address] Performed By: #### 5 7021-8 ####[facility] HOS[facility]ITALNCLIA [id number] [place] [address] [place] Erythrocyte distribution width (RBC) [Ratio] 19.6 % High 11.5-15.0 [facility] Comment on above: Order Comment: Speci men Type: BLOOD SPECIMENOrdering Facility: [facility] Address: [address] [place] [address] Performed By: #### 5 7021-8 ####[facility] HOSPITALNCTOOELE VALLEY [facility] [id number] [place] [address] [place] Hematocrit (Bld) [Volume fraction] 34.8 % Low 36.0-46.0 [facility] Comment on above: Order Comment: Speci men Type: BLOOD SPECIMENOrdering Facility: [facility] Address: [address] [place] [address] Performed By: #### 5 7021-8 ####[facility]OS[facility]ITALNCTOOELE VALLEY [facility] [id number] [place] [address] [place] Hemoglobin (Bld) [Mass/Vol] 11.0 g/dL Low 11.5-15.5 [facility] Comment on above: Order Comment: Speci men Type: BLOOD SPECIMENOrdering Facility: [facility] Address: [address] [place] [address] Performed By: #### 5 7021-8 ####[facility] CENTERLIA [id number] [place] [address] [place] Immature granulocytes (Bld) [#/Vol] 10*3/uL Normal <0.10 [facility] Comment on above: Order Comment: Speci men Type: BLOOD SPECIMENOrdering Facility: [facility] Address: [address] [place] [address] Performed By: #### 5 7021-8 ####[facility] HOSPITALNCLI [id number] [place] [address] [place] Immature granulocytes/100 WBC (Bld) 0.9 % Normal [facility] Comment on above: Order Comment: Speci men Type: BLOOD SPECIMENOrdering Facility: [facility] Address: [address] [place] [address] Performed By: #### 5 7021-8 ####[facility] ALYSSAJAZMYN [id number] [place] [address] [place] Lymphocytes (Bld) [#/Vol] 0.36 10*3/uL Low 1.00-4.00 [facility] Comment on above: Order Comment: Speci men Type: BLOOD SPECIMENOrdering Facility: [facility] Address: [address] [place] [address] Performed By: #### 5 7021-8 ####[facility] HOSPITALZEVTOOELE VALLEY HOSPITAL [id number] [place] [address] [place] Lymphocytes/100 WBC (Bld) 15.3 % Normal [facility] Comment on above: Order Comment: Speci men Type: BLOOD SPECIMENOrdering Facility: [facility] Address: [address] [place] [address] Performed By: #### 5 7021-8 ####[facility] HOSPITALNICOLE [id number] [place] [address] [place] MCH (RBC) [Entitic mass] 27.0 pg Normal 26.0-34.0 [facility] Comment on above: Order Comment: Speci men Type: BLOOD SPECIMENOrdering Facility: [facility] Address: [address] [place] [address] Performed By: #### 5 7021-8 ####[facility] HOSPITALNCLIA [id number] [place] [address] [place] MCHC (RBC) [Mass/Vol] 31.6 g/dL Normal 30.5-36.0 [facility] Comment on above: Order Comment: Speci men Type: BLOOD SPECIMENOrdering Facility: [facility] Address: [address] [place] [address] Performed By: #### 5 7021-8 ####[facility] FLORIDAWNCLIA [id number] [place] [address] [place] MCV (RBC) [Entitic vol] 85.3 fL Normal 80.0-100.0 [facility] Comment on above: Order Comment: Speci men Type: BLOOD SPECIMENOrdering Facility: [facility] Address: [address] [place] [address] Performed By: #### 5 7021-8 ####[facility] CENTERLIA [id number] [place] [address] [place] Monocytes (Bld) [#/Vol] 0.32 10*3/uL Normal <0.87 [facility] Comment on above: Order Comment: Speci men Type: BLOOD SPECIMENOrdering Facility: [facility] Address: [address] [place] [address] Performed By: #### 5 7021-8 ####[facility]OSPITALA [id number] [place] [address] [place] Monocytes/100 WBC (Bld) 13.6 % Normal C [facility] Comment on above: Order Comment: Speci men Type: BLOOD SPECIMENOrdering Facility: [facility] Address: [address] [place] [address] Performed By: #### 5 7021-8 ####[facility] CENTERLIA [id number] [place] [address] [place] Neutrophils (Bld) [#/Vol] 1.60 10*3/uL Normal 1.45-7.50 [facility] Comment on above: Order Comment: Speci men Type: BLOOD SPECIMENOrdering Facility: [facility] Address: [address] [place] [address] Performed By: #### 5 7021-8 ####[facility] HOSPITALNCLI [id number] [place] [address] [place] Neutrophils/100 WBC (Bld) 68.1 % Normal [facility] Comment on above: Order Comment: Speci men Type: BLOOD SPECIMENOrdering Facility: [facility] Address: [address] [place] [address] Performed By: #### 5 7021-8 ####[facility] HOSPITALNCTOOELE VALLEY [facility] [id number] [place] [address] [place] Nucleated RBC (Bld) [#/Vol] 10*3/uL Normal <0.01 [facility] Comment on above: Order Comment: Speci men Type: BLOOD SPECIMENOrdering Facility: [facility] Address: [address] [place] [address] Performed By: #### 5 7021-8 ####[facility] HOSPITALNCTOOELE VALLEY [facility] [id number] [place] [address] [place] Nucleated RBC/100 WBC (Bld) [Ratio] 0.0 /100 WBC Normal [facility] Comment on above: Order Comment: Speci men Type: BLOOD SPECIMENOrdering Facility: [facility] Address: [address] [place] [address] Performed By: #### 5 7021-8 ####[facility] HOSPITALNCTOOELE VALLEY [facility] [id number] [place] [address] [place] Platelet mean volume (Bld) [Entitic vol] 9.6 fL Normal 9.0-12.7 [facility] Comment on above: Order Comment: Speci men Type: BLOOD SPECIMENOrdering Facility: [facility] Address: [address] [place] [address] Performed By: #### 5 7021-8 ####[facility] HOSPITALNCTOOELE VALLEY [facility] [id number] [place] [address] [place] Platelets (Bld) [#/Vol] 147 10*3/uL Low 150-400 [facility] Comment on above: Order Comment: Speci men Type: BLOOD SPECIMENOrdering Facility: [facility] Address: [address] [place] [address] Performed By: #### 5 7021-8 ####[facility] HOSPITALNCLIA [id number] [place] [address] [place] RBC (Bld) [#/Vol] 4.08 10*6/uL Normal 3.90-5.20 [facility] Comment on above: Order Comment: Speci men Type: BLOOD SPECIMENOrdering Facility: [facility] Address: [address] [place] [address] Performed By: #### 5 7021-8 ####[facility] HOSPITALNCLIA [id number] [place] [address] [place] WBC (Bld) [#/Vol] 2.35 10*3/uL Low 3.70-11.00 [facility] Comment on above: Order Comment: Speci men Type: BLOOD SPECIMENOrdering Facility: [facility] Address: [address] [place] [address] Performed By: #### 5 7021-8 ####[facility] HOSPITALNCLIA [id number] [address] [place] Jeremy 10-26-2024 [facility] -------- MARIMAR WANG ([id number]) 1960 F Date Time Provider Department 10/26/24 JESSICA DIAS AVXRPR During your visit today, we recorded the [...] mouth every 6 hours as needed. - xlnevcvgmuJHAKO-pjhtqo-b idocaine (BMX 1:1:1) 1:1:1 liqd Take 10 [...] 80 mg by mouth once daily. - nkkvwr-esbjtshk-wyrwftn (CREON 36) 36,000-114,000- 180,000 unit delayed release [...] and pneumonia Meds Comments as of 02/06/2017: Xeljanz use pharmacy [facility] [place] [address] Problem List As Of Date 10/26/2024 Noted [...] [G47.00] 09/03/2014 (more content not included)... Normal [facility] CNPN Telephone (AVXRPR) -------- MARIMAR WANG ([id number]) 1960 F Date Time Provider Department 10/26/24 JESSICA DIAS During your visit today, we recorded the following information about you: Jessica Dias, LÓPEZ 10/26/2024 4:13 PM Signed You are scheduled for a medi port placement, On 10/30/2024. You are to arrive at 1200 pm and Report to [facility]: [facility]: Radiology Outpatient Desk [id number] You can expect [...] Labs: Lab-work needs to be drawn? No.. Kiln Firer/Transportation: How will you be arriving for your procedure? Private car. You will need a responsible adult to accompany you to and from the procedure. Your piledriver carpenter is required to stay with you until you are taken into the procedure room. Call [phone] with questions Allergies As of Date: 10/26/2024 [...] Date Reviewed: 10/20/2024 Reviewed by: Tamia Rodriguez, RN - Fully Assessed Prescriptions as of 10/26/2024 [...] mouth every 6 hours as needed. - bbimzjqpcsSNLXD-rknwzh-v idocaine (BMX 1:1:1) 1:1:1 liqd Take 10 [...] 80 mg by mouth once daily. - pxiiku-yjstmheu-kuudjtr (CREON 36) 36,000-114,000- 180,000 unit delayed release [...] 1 t (more content not included)... Normal [facility] CNPN Normal [facility] L499.0042on 10-25-2024 Trop T High Sen 13 ng/L Normal <=14 [facility] Comment on above: Result Comment: Hemo lysis present, Results??could be affected. ?? Performed By: #### L 499.0042 #### [facility] Laboratory [address] [place], [address] 12 Lead EKGon 10-24-2024 12 Lead EKG [facility] Cardiovascular Services [address] [place] [address] 12 Lead EKG 10/24/242128 MR#: [id number] Acct: [id number] Name: MARIMAR WANG Rep #: [id number] : 1960 64 From: Ortega Wallis MD Attending Dr: Dr. Rigoberto Dow DO Status: DEP ER Ordering Dr: Josh Bates Date: 10/24/24 Location: ED Sex: F C [...] in Lateral leads Confirmed by Ortega Wallis ([id number]), editorial director SARAH SIDDIQI ([id number]) on 10/29/2024 10:02:59 AM Referred By: Confirmed By: Ortega Wallis 10/29/24 1003 Date Ortega Wallis MD CC: [facility] Arriaga; [facility] Bates; Dr. Rigoberto Dow, Signed Normal [facility] Abdomen/Pelvis W IV Cont ONL Yon 10-24-2024 Abdomen/Pelvis W IV Cont ONLY [facility] Imaging Services [address] [place], [place] [id number] Abdomen/Pelvis W IV Cont ONLY MR#: [id number] Acct: [id number] Name: MARIMAR WANG Rep #: [id number] : 1960 F 64 From: Betsey Obrien MD PCP: [facility] Arriola Status: REG ER Study: Abdomen/Pelvis W IV Cont ONLY Date of Exam: Exam# [id number] Ordering Dr: Josh Bates 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Rowan PROCEDURE: ABDOMEN/PELVIS W IV CONT ONLY 10/24/2024 [...] a chronic postinfectious/inflammat ory process. 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 Normal [facility] Absolute lymphocyte countOrd ered By: Josh Bates on 10-24-2024 Lymphocytes Auto (Unsp spec) [#/Vol] 0.48 10*3/uL Low 0.83-4.51 [facility] Absolute neutrophil countOrd ered By: Josh Bates on 10-24-2024 Neutrophils (Bld) [#/Vol] 1.5 10*3/uL Low 2.0-7.7 [facility] Anion gap in Serum or Plasma Ordered By: Josh Bates on 10-24-2024 Anion gap [Moles/Vol] 11 mmol/L 5-15 [facility] Automated lymphocyte count a s percentage of total leukocytesOrdered By: Josh Bates on 10-24-2024 Lymphocytes/100 WBC Auto (Unsp spec) 18.2 % Low 19-41 [facility] BUN/creatinine ratioOrdered By: Josh Bates on 10-24-2024 Urea nitrogen/Creatinine [Mass ratio] 11.6 mg/mg 10- [facility] Basic Metabolic Profile (BMP )on 10-24-2024 BUN/CRE 11.6 RATIO Normal - [facility] Comment on above: Performed By: #### L 100.0100, L500.2500 #### [facility] [address] [place], [address] Calcium [Mass/Vol] 8.9 mg/dL Normal 7.6-11.0 [facility] Comment on above: Performed By: #### L 100.0100, L500.2500 #### [facility] [address] [place], [address] Chloride [Moles/Vol] 105 mmol/L Normal 98-108 [facility] Comment on above: Performed By: #### L 100.0100, L500.2500 #### [facility] [address] [place], [address] CO2 [Moles/Vol] 21.7 mmol/L Normal 21.0-32.0 [facility] Comment on above: Performed By: #### L 100.0100, L500.2500 #### [facility] [address] [place], [address] Creatinine [Mass/Vol] 0.67 mg/dL Low 0.70-1.20 [facility] Comment on above: Performed By: #### L 100.0100, L500.2500 #### [facility] [address] [place], [address] ECRCL 73.11 ml/min Normal 50-250 [facility] Comment on above: Performed By: #### L 100.0100, L500.2500 #### [facility] [address] [place], [address] GAP 11 Normal 5-15 [facility] Comment on above: Performed By: #### L 100.0100, L500.2500 #### [facility] [address] [place], [address] GFR/1.73 sq M.predicted among non-blacks MDRD (S/P/Bld) [Vol rate/Area] 97 mL/min/{1.73_m2} Normal >60 [facility] Comment on above: Result Comment: mL/m in/1.73m2 CKD-EPI Creatinine Equation (2020) Performed By: #### L 100.0100, L500.2500 #### [facility] [address] [place], [address] Glucose [Mass/Vol] 85 mg/dL Normal 70-99 [facility] Comment on above: Performed By: #### L 100.0100, L500.2500 #### [facility] [address] [place], [address] Potassium [Moles/Vol] 3.1 mmol/L Low 3.3-5.1 [facility] Comment on above: Performed By: #### L 100.0100, L500.2500 #### [facility] [address] [place], [address] Sodium [Moles/Vol] 137 mmol/L Normal 133-145 [facility] Comment on above: Performed By: #### L 100.0100, L500.2500 #### [facility] [address] [place], [address] Urea nitrogen [Mass/Vol] 8 mg/dL Normal 4-19 [facility] Comment on above: Performed By: #### L 100.0100, L500.2500 #### [facility] [address] [place], [address] Basophil percentageOrdered B y: Josh Bates on 10-24-2024 Basophils/100 WBC (Bld) 0.8 % 0-1 [facility] Bilirubin Test strip Ql (U)O rdered By: Josh Bates on 10-24-2024 Bilirubin Ql (U) Negative Negative [facility] Blood manual differential co mment interpretation (narrative result)Ordered By: Josh Bates on 10-24-2024 Manual differential comment Yair (Bld) [Interp] SCANNED [facility] Comment on above: LYMPHOPENIA PRESENT CTA Chest W/WO Contraston CTA Chest W/WO Contrast [facility] Imaging Services [address] [facility] [place] [address] CTA Chest W/WO Contrast MR#: [id number] Acct: [id number] Name: MARIMAR WANG Rep #: [id number] : 1960 F 64 From: Betsey Obrien MD PCP: SINAI Arriola Status: REG ER Study: CTA Chest W/WO Contrast Date of Exam: 10/24/24 Exam# [id number] Ordering Dr: Josh Bates 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MadayC PROCEDURE: CTA CHEST W/WO CONTRAST 10/24/2024 REASON [...] in the upper lung zones. Reading Location: [facility] CC: SINAI Arriaga; SINAI Bates [employer] Operator: Signed Normal [facility] Carbon dioxide, total [Moles /volume] in Central venous bloodOrdered By: Josh Bates on 10-24-2024 CO2 [Moles/Vol] 21.7 mmol/L 21.0-32.0 [facility] Chloride assayOrdered By: Cy Bates on 10-24-2024 Chloride [Moles/Vol] 105 mmol/L 98-108 [facility] Emergency Department Summary on 10-24-2024 Emergency Department Summary [facility] Medical Records Department [address] [place] [address] Emergency Department Summary 10/24/24 MR#: [id number] Acct: [id number] Name: MARIMAR WANG Rep #: [id number] : 1960 64 From: [place] Napier PCP: Julio Arriaga, 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-C Status:DEP ER Location: ED HPI History of [...] and not feeling like she is emptying. [facility] Medical History Squamous cell cancer of [...] [facility] 6 09/01/24 History peg [id number] n 1 1 drp OP 4X/DAY DRY [...] 10/02/24. Instru (more content not included)... Normal [facility] Eosinophil percentageOrdered By: Josh Bates on 10-24-2024 Eosinophils/100 WBC (Bld) 0.8 % 0-5 [facility] Epithelial cells.squamous LM Ql (Urine sed)Ordered By: Josh aBtes on 10-24-2024 Epithelial cells.squamous LM.HPF (Urine sed) [#/Area] 0 /[HPF] 5-10 [facility] Erythrocyte distribution wid th ratioOrdered By: Josh Bates on 10-24-2024 Erythrocyte distribution width (RBC) [Ratio] 18.9 % High 11.6-14.6 [facility] Erythrocyte distribution wid th standard deviationOrdered By: Josh Bates on 10-24-2024 Erythrocyte distribution width (RBC) [Entitic vol] 54.4 fL High 35.1-43.9 [facility] Erythrocyte distribution width (RBC) [Ratio] 54.4 fl High 35.1-43.9 [facility] Estimation of creatinine olga aranceOrdered By: Josh Bates on 10-24-2024 Estimated Creatinine Clearance Calc 73.11 ml/min 50-250 [facility] GFR/1.73 sq M.predicted brunilda g non-blacks MDRD (S/P/Bld) [Vol rate/Area]Ordered By: Josh Bates on 10-24-2024 Estimated GFR (MDRD) Non-Af Amer 97 >60 [facility] Comment on above: mL/min/1.73m2 CKD-EP I Creatinine Equation (2020) Glomerular filtration rate ( GFR) estimation/1.73 sq m using serum, plasma, or whole bOrdered By: Josh Bates on 10-24-2024 GFR/1.73 sq M.predicted among non-blacks MDRD (S/P/Bld) [Vol rate/Area] 97 mL/min/{1.73_m2} >60 [facility] Comment on above: mL/min/1.73m2 CKD-EP I Creatinine Equation (2020) Glucose Ql (U)Ordered By: Cy Bates on 10-24-2024 Urine Glucose (UA) Normal mg/dl Normal [facility] Hematocrit Auto (Bld) [Volum e fraction]Ordered By: Josh Bates on 10-24-2024 Hematocrit (Bld) [Volume fraction] 31.2 % Low 37-47 [facility] Hemoglobin measurementOrdere d By: Josh Bates on 10-24-2024 Hemoglobin (Bld) [Mass/Vol] 10.1 g/dL Low 12.0-15.0 [facility] Immature granulocytes/100 WB C Auto (Bld)Ordered By: Josh Bates on 10-24-2024 Immature granulocytes/100 WBC (Bld) 0.400 % 0.0-0.9 [facility] Comment on above: IG% - Immature Granu locytes (promyelocytes, myelocytes and metamyelocytes) > 1% indicates that a LEFT SHIFT is Present. Influenza virus A and B and SARS-CoV-2 (COVID-19) and Respiratory syncytial virus RNAOrdered By: Josh Bates on 10-24-2024 SARS-CoV-2 (COVID-19) RNA CORAL+probe Ql (Unsp spec) [facility] Ketones Test strip Ql (U)Ord ered By: Josh Bates on 10-24-2024 Ketones Ql (U) Negative Negative [facility] L501.4021on 10-24-2024 Trop T High Sen 14 ng/L Normal <=14 [facility] Comment on above: Performed By: #### L 503.7505, L501.4021 ####[facility] [address] [place], [address] L503.7505on 10-24-2024 Natriuretic peptide B (Bld) [Mass/Vol] 1345 pg/mL High <=900 [facility] Comment on above: Result Comment: Hear t Failure Unlikely: < 300 pg/mL Heart Failure Likely < 50 Years: > 450 pg/mL 50-75 Years: > 900 pg/mL >75 Years: > 1800 pg/mL Performed By: #### L 503.7505, L501.4021 ####[facility] [address] [place], [place], [id number] Laboratory - Chemistry and C hemistry - challengeOrdered By: Josh Bates on 10-24-2024 Natriuretic peptide B (Bld) [Mass/Vol] 1345 pg/mL High <900 [facility] Comment on above: Heart Failure Unlike ly: < 300 pg/mLHeart Failure Likely< 50 Years: > 450 pg/mL50-75 Years: > 900 pg/mL>75 Years: > 1800 pg/mL Lymphocytes Auto (Unsp spec) [#/Vol]Ordered By: Josh Bates on 10-24-2024 Lymphocytes (Bld) [#/Vol] 0.48 10*3/uL Low 0.83-4.51 [facility] Lymphocytes/100 WBC Auto (Un sp spec)Ordered By: Josh Bates on 10-24-2024 Lymphocytes/100 WBC (Bld) 18.2 % Low 19-41 [facility] M100.678on 10-24-2024 M100.678 SARS-CoV-2 (COVID 19 ) Negative INFLUENZA A Negative INFLUENZA B Negative RSV PCR Negative Normal [facility] Comment on above: Performed By: #### M 100.678 ####[facility] [address] [place], [place], [id number] MCV (mean corpuscular volume ) determinationOrdered By: Josh Bates on 10-24-2024 MCV (RBC) [Entitic vol] 84.6 fL 81-99 [facility] Manual differential comment Yair (Bld) [Interp]Ordered By: Josh Bates on 10-24-2024 Differential Comment SCANNED [facility] Comment on above: LYMPHOPENIA PRESENT Mean corpuscular hemoglobin (MCH) determinationOrdered By: Josh Bates on 10-24-2024 MCH (RBC) [Entitic mass] 27.4 pg 27.0-32.0 [facility] Mean corpuscular hemoglobin concentration (MCHC) determinationOrdered By: Josh Bates on 10-24-2024 MCHC (RBC) [Mass/Vol] 32.4 g/dL 32-36 [facility] Mean platelet volume determi nationOrdered By: Josh Bates on 10-24-2024 Platelet mean volume (Bld) [Entitic vol] 10.2 fL 6.2-12.0 [facility] Microscopic analysis of urin e for red blood cells (RBC)Ordered By: oJsh Bates on 10-24-2024 Microscopic analysis of urine for red blood cells (RBC) 0 SEEN /hpf 0-5 [facility] Urine RBC 0 SEEN /hpf 0-5 [facility] Monocyte percentageOrdered B y: Josh Bates on 10-24-2024 Monocytes/100 WBC (Bld) 24.2 % High 0-10 [facility] Mucus LM Ql (Urine sed)Order ed By: Josh Bates on 10-24-2024 Mucus Ql (Urine sed) 0 SEEN /hpf [facility] Neutrophil percentageOrdered By: Josh Bates on 10-24-2024 Neutrophils/100 WBC (Bld) 55.6 % 47-70 [facility] Nitrite Test strip Ql (U)Ord ered By: Josh Bates on 10-24-2024 Nitrite Ql (U) Negative Negative [facility] No Panel InformationOrdered By: Josh Bates on 10-24-2024 Troponin T High Sensitivity 14 ng/L <14 [facility] Nucleated red blood cell per centageOrdered By: Josh Bates on 10-24-2024 Nucleated RBC/100 WBC (Bld) [Ratio] 0 % 0-5 [facility] Pathologist review Yair (Unsp spec) [Interp]Ordered By: Josh Bates on 10-24-2024 Differential Pathologist's Review May foll [facility] Platelet countOrdered By: Cy Bates on 10-24-2024 Platelets (Bld) [#/Vol] 110 10*3/uL Low 150-450 [facility] Potassium (Unsp spec) [Mass/ Vol]Ordered By: Josh Bates on 10-24-2024 Potassium [Moles/Vol] 3.1 mmol/L Low 3.3-5.1 [facility] Potassium measurement (mass/ volume)Ordered By: Josh Bates on 10-24-2024 Potassium (Unsp spec) [Mass/Vol] 3.1 mmol/L Low 3.3-5.1 [facility] Protein Test strip Ql (U)Ord ered By: Josh Bates on 10-24-2024 Protein Ql (U) 15 mg/dl High Negative [facility] RBC Auto (Bld) [#/Vol]Ordere d By: Josh Bates on 10-24-2024 RBC (Bld) [#/Vol] 3.69 10*6/uL Low 4.2-5.4 [facility] Review by pathologistOrdered By: Josh Bates on 10-24-2024 Pathologist review Yair (Unsp spec) [Interp] N/A [facility] Comment on above: Pathology review can celed due to updated review criteria.Previous reported result: Mary swain Edited by: TIFF on 12/03/24:1202 AMENDED REPORT 12/03/24 1202 PATH REV previously reported as: Mary swain Serum creatinine measurement (mass/volume)Ordered By: Josh Bates on 10-24-2024 Creatinine [Mass/Vol] 0.67 mg/dL Low 0.70-1.20 [facility] Serum glucose measurement (m ass/volume)Ordered By: Josh Bates on 10-24-2024 Glucose [Mass/Vol] 85 mg/dL 70-99 [facility] Serum or plasma calcium alexis urement (mass/volume)Ordered By: Josh Bates on 10-24-2024 Calcium [Mass/Vol] 8.9 mg/dL 7.6-11.0 [facility] Serum or plasma urea nitroge n measurement (mass/volume)Ordered By: Josh Bates on 10-24-2024 Urea nitrogen [Mass/Vol] 8 mg/dL 4-19 [facility] Sodium levelOrdered By: Josh Bates on 10-24-2024 Sodium [Moles/Vol] 137 mmol/L 133-145 [facility] Squamous epithelial cells de tection in urine sediment by light microscopyOrdered By: Josh Bates on 10-24-2024 Epithelial cells.squamous LM Ql (Urine sed) 0 SEEN /hpf -10 [facility] Troponin T.cardiac High sens itivity method [Mass/Vol]Ordered By: Josh Bates on 10-24-2024 Troponin T High Sensitivity 2 Hour 13 ng/L <14 [facility] Comment on above: Hemolysis present, R esults could be affected. Troponin T.cardiac [Mass/vol ume] in Serum or Plasma by High sensitivity methodOrdered By: Josh Bates on 10-24-2024 Troponin T.cardiac High sensitivity method [Mass/Vol] 13 ng/L <14 [facility] Comment on above: Hemolysis present, R esults could be affected. Urinalysis, Completeon 10-24 BACTERIA 0 SEEN Normal None Seen [facility] Comment on above: Order Comment: RENALDO TER SPECIMEN Performed By: #### L 400.0001 #### [facility] [address] [place], [address] EPI,SQUAMOUS 0 SEEN Normal - [facility] Comment on above: Order Comment: RENALDO TER SPECIMEN Performed By: #### L 400.0001 #### [facility] [address] [place], [address] Mucus Ql (Urine sed) 0 SEEN Normal [facility] Comment on above: Order Comment: RENALDO TER SPECIMEN Performed By: #### L 400.0001 #### [facility] [address] [place], [address] RBC 0 SEEN Normal 0-5 [facility] Comment on above: Order Comment: RENALDO TER SPECIMEN Performed By: #### L 400.0001 #### [facility] [address] [place], [address] WBC 0 SEEN Normal 0-5 [facility] Comment on above: Order Comment: RENALDO TER SPECIMEN Performed By: #### L 400.0001 #### [facility] [address] [place], [address] Urine blood detectionOrdered By: Josh Bates on 10-24-2024 Urine Occult Blood 10 /ul High Negative [facility] Urine clarityOrdered By: Maegan Bates on 10-24-2024 Clarity (U) Clear Clear [facility] Urine color determinationOrd ered By: Josh Bates on 10-24-2024 Color (U) Yellow Yellow [facility] Urine glucose detectionOrder ed By: Josh Bates on 10-24-2024 Glucose Ql (U) Normal mg/dl Normal [facility] Urine leukocyte esterase det ection by dipstickOrdered By: Josh Bates on 10-24-2024 Leukocyte esterase Test strip Ql (U) Negative Negative [facility] Urine pHOrdered By: Josh russ on 10-24-2024 pH (U) 6.0 [pH] 5.0 - 8.0 [facility] Urine sediment bacteria coun t by microscopy (number/high power field)Ordered By: Josh Bates on 10-24-2024 Bacteria LM.HPF (Urine sed) [#/Area] 0 /[HPF] None Seen [facility] Urine specific gravity measu rementOrdered By: Josh Bates on 10-24-2024 Specific gravity (U) [Rel density] 1.010 1.002-1.030 [facility] Urine urobilinogen measureme ntOrdered By: Josh Bates on 10-24-2024 Urobilinogen Ql (U) Normal mg/dl Normal [facility] Urobilinogen Ql (U)Ordered B y: Josh Bates on 10-24-2024 Urine Urobilinogen Normal mg/dl Normal [facility] White blood cell (WBC) count Ordered By: Josh Bates on 10-24-2024 WBC (Bld) [#/Vol] 2.6 10*3/uL Low 4.4-11.0 [facility] White blood cell countOrdere d By: Josh Bates on 10-24-2024 Urine WBC 0 SEEN /hpf 0-5 [facility] White blood cell count 0 SEEN /hpf 0-5 [facility] Urinalysis complete panel (U )on 10-22-2024 Bacteria uL 1121.1 uL High - 941 uL [facility] Bilirubin Ql (U) Negative Negative [facility] Clarity (Unsp spec) Clear Clear [facility] Color (U) Yellow Yellow [facility] Epithelial cells LM.HPF (Urine sed) [#/Area] None Seen /HPF [facility] Glucose Test strip (U) [Mass/Vol] Negative Negative [facility] Hemoglobin Ql (U) Negative Negative [facility] Hyaline casts (Urine sed) [#/Area] 0 /[LPF] 0 /LPF [facility] Interpretation and review of laboratory results Abnormal [facility] Ketones Ql (U) Trace Abnormal Negative [facility] Leukocyte esterase Test strip Ql (U) Negative Negative [facility] Nitrite Ql (U) Negative Negative [facility] pH (U) 6 [pH] NINF - 8.5 [facility] Protein (U) [Mass/Vol] 1+ Abnormal Negative [facility] RBC LM.HPF (Urine sed) [#/Area] 3-5 /HPF Abnormal 0-2 /HPF [facility] Specific gravity (U) [Rel density] 1.024 1.005 - 1.030 [facility] Urobilinogen Ql (U) 0.2 EU/dL 0.2-1.0 EU/dL [facility] WBC LM.HPF (Urine sed) [#/Area] 6-10 /HPF Abnormal 0-5 /HPF [facility] This test was candelaria chaudhary and its performance characteristics determined by [facility] [place] ([facility]). It has not been cleared or approved by the FDA. [facility] is regulated under CLIA as qualified to perform high-complexity testing. This test is used for clinical purposes. It should not be regarded as investigational or for research. [facility] BACTERIA UL 1121.1 uL High Negative [facility] Comment on above: Order Comment: Speci men Type: URINE SPECIMENOrdering Facility: [facility] Address: [address] [place] [address] Performed By: #### 2 4356-8 ####[facility] LABCLIA [id number] [place] [address] [place] Bilirubin Ql (U) Negative Normal Negative [facility] Comment on above: Order Comment: Speci men Type: URINE SPECIMENOrdering Facility: [facility] Address: [address] [place] [id number] Performed By: #### 2 4356-8 ####[facility] LABCLIA [id number] [address], [facility] [place] Clarity (Unsp spec) Clear Normal Clear [facility] Comment on above: Order Comment: Speci men Type: URINE SPECIMENOrdering Facility: [facility] Address: [address] [place] [address] Performed By: #### 2 4356-8 ####[facility] LABCLIA [id number] [place] [address] [place] Color (U) Yellow Normal Yellow [facility] Comment on above: Order Comment: Speci men Type: URINE SPECIMENOrdering Facility: [facility] Address: [address] [place] [address] Performed By: #### 2 4356-8 ####[facility] LABIA [id number] [address], [place] [address] [place] Epithelial cells LM.HPF (Urine sed) [#/Area] None Seen Normal [facility] Comment on above: Order Comment: Speci men Type: URINE SPECIMENOrdering Facility: [facility] Address: [address] [place] [address] Performed By: #### 2 4356-8 ####[facility] LABCLIA [id number] [address], [facility] [place] Glucose Test strip (U) [Mass/Vol] Negative Normal Negative [facility] Comment on above: Order Comment: Speci men Type: URINE SPECIMENOrdering Facility: [facility] Address: [address] [place] [address] Performed By: #### 2 4356-8 ####[facility] LABCLIA [id number] [place] [id number] [place] Hemoglobin Ql (U) Negative Normal Negative [facility] Comment on above: Order Comment: Speci men Type: URINE SPECIMENOrdering Facility: [facility] Address: [address] [place] [address] Performed By: #### 2 4356-8 ####[facility] LABCLIA [id number] [address] [place] [address] [place] Hyaline casts (Urine sed) [#/Area] 0 /[LPF] Normal 0 /LPF [facility] Comment on above: Order Comment: Speci men Type: URINE SPECIMENOrdering Facility: [facility] Address: [address] [place] [address] Performed By: #### 2 4356-8 ####[facility] LABCLIA [id number] [address], [facility] [place] Ketones Ql (U) Trace Abnormal Negative [facility] Comment on above: Order Comment: Speci men Type: URINE SPECIMENOrdering Facility: [facility] Address: [address] [place] [address] Performed By: #### 2 4356-8 ####[facility] LABCLIA [id number] [address], [facility] [place] Leukocyte esterase Test strip Ql (U) Negative Normal Negative [facility] Comment on above: Order Comment: Speci men Type: URINE SPECIMENOrdering Facility: [facility] Address: [address] [place] [address] Performed By: #### 2 4356-8 ####[facility] LABCLIA [id number] [address] [place] [address] [place] Nitrite Ql (U) Negative Normal Negative [facility] Comment on above: Order Comment: Speci men Type: URINE SPECIMENOrdering Facility: [facility] Address: [address] [place] [address] Performed By: #### 2 4356-8 ####[facility] LABCLIA [id number] [address] [place] [address] [place] pH (U) 6.0 [pH] Normal <8.5 [facility] Comment on above: Order Comment: Speci men Type: URINE SPECIMENOrdering Facility: [facility] Address: [address] [place] [address] Performed By: #### 2 4356-8 ####[facility] LABIA [id number] [place] [address] [place] Protein (U) [Mass/Vol] 1+ Abnormal Negative [facility] Comment on above: Order Comment: Speci men Type: URINE SPECIMENOrdering Facility: [facility] Address: [address] [place] [address] Performed By: #### 2 4356-8 ####[facility] LABIA [id number] [place] [address] [place] RBC LM.HPF (Urine sed) [#/Area] 3-5 /HPF Abnormal 0-2 /HPF [facility] Comment on above: Order Comment: Speci men Type: URINE SPECIMENOrdering Facility: [facility] Address: [address] [place] [address] Performed By: #### 2 4356-8 ####[facility] [id number] [address] [place] Specific gravity (U) [Rel density] 1.024 Normal 1.005-1.030 [facility] Comment on above: Order Comment: Speci men Type: URINE SPECIMENOrdering Facility: [facility] Address: [address] [place] [address] Performed By: #### 2 4356-8 ####[facility] [id number] [place] [address] [place] Urobilinogen Ql (U) 0.2 EU/dL Normal 0.2-1.0 EU/dL [facility] Comment on above: Order Comment: Speci men Type: URINE SPECIMENOrdering Facility: [facility] Address: [address] [place] [address] Performed By: #### 2 4356-8 ####[facility] [id number] [place] [address] [place] WBC LM.HPF (Urine sed) [#/Area] 6-10 /HPF Abnormal 0-5 /HPF [facility] Comment on above: Order Comment: Speci men Type: URINE SPECIMENOrdering Facility: [facility] Address: [address] [place] [address] Performed By: #### 2 4356-8 ####[facility] LABIA [id number] [place] [address] [place] CNPNon 10-21-2024 CNPN Normal [facility] CNOVon 10-20-2024 CNOV Normal [facility] CBC W Auto Differential pane l (Bld)on 10-19-2024 Basophils (Bld) [#/Vol] 10*3/uL Normal <0.11 [facility] Comment on above: Order Comment: Speci men Type: BLOOD SPECIMENOrdering Facility: [facility] Address: [address] [place] [address] Performed By: #### 5 7021-8 ####[facility] [id number] [place] [address] [place] Basophils/100 WBC (Bld) 0.4 % Normal [facility] Comment on above: Order Comment: Speci men Type: BLOOD SPECIMENOrdering Facility: [facility] Address: [address] [place] [address] Performed By: #### 5 7021-8 ####[facility] [id number] [place] [address] [place] Differential cell count method Nom (Bld) Auto Normal [facility] Comment on above: Order Comment: Speci men Type: BLOOD SPECIMENOrdering Facility: [facility] Address: [address] [place] [address] Performed By: #### 5 7021-8 ####[facility] MILLWNCLIA [id number] [place] [address] [place] Eosinophils (Bld) [#/Vol] 0.03 10*3/uL Normal <0.46 [facility] Comment on above: Order Comment: Speci men Type: BLOOD SPECIMENOrdering Facility: [facility] Address: [address] [place] [address] Performed By: #### 5 7021-8 ####[facility] CENTERLIA [id number] [place] [address] [place] Eosinophils/100 WBC (Bld) 1.2 % Normal [facility] Comment on above: Order Comment: Speci men Type: BLOOD SPECIMENOrdering Facility: [facility] Address: [address] [place] [address] Performed By: #### 5 7021-8 ####[facility] CENTERLIA [id number] [place] [address] [place] Erythrocyte distribution width (RBC) [Ratio] 17.1 % High 11.5-15.0 [facility] Comment on above: Order Comment: Speci men Type: BLOOD SPECIMENOrdering Facility: [facility] Address: [address] [place] [address] Performed By: #### 5 7021-8 ####[facility] FLORIDAWNCLIA [id number] [place] [address] [place] Hematocrit (Bld) [Volume fraction] 34.3 % Low 36.0-46.0 [facility] Comment on above: Order Comment: Speci men Type: BLOOD SPECIMENOrdering Facility: [facility] Address: [address] [place] [address] Performed By: #### 5 7021-8 ####[facility] CENTERLIA [id number] [place] [address] [place] Hemoglobin (Bld) [Mass/Vol] 10.8 g/dL Low 11.5-15.5 [facility] Comment on above: Order Comment: Speci men Type: BLOOD SPECIMENOrdering Facility: [facility] Address: [address] [place] [address] Performed By: #### 5 7021-8 ####[facility] [id number] [place] [address] [place] Immature granulocytes (Bld) [#/Vol] 10*3/uL Normal <0.10 [facility] Comment on above: Order Comment: Speci men Type: BLOOD SPECIMENOrdering Facility: [facility] Address: [address] [place] [address] Performed By: #### 5 7021-8 ####[facility] [id number] [place] [address] [place] Immature granulocytes/100 WBC (Bld) 0.4 % Normal [facility] Comment on above: Order Comment: Speci men Type: BLOOD SPECIMENOrdering Facility: [facility] Address: [address] [place] [address] Performed By: #### 5 7021-8 ####[facility] [id number] [place] [address] [place] Lymphocytes (Bld) [#/Vol] 0.26 10*3/uL Low 1.00-4.00 [facility] Comment on above: Order Comment: Speci men Type: BLOOD SPECIMENOrdering Facility: [facility] Address: [address] [place] [address] Performed By: #### 5 7021-8 ####[facility] CENTERLIA [id number] [place] [address] [place] Lymphocytes/100 WBC (Bld) 10.4 % Normal [facility] Comment on above: Order Comment: Speci men Type: BLOOD SPECIMENOrdering Facility: [facility] Address: [address] [place] [address] Performed By: #### 5 7021-8 ####[facility] ALYSSAJamirNCBLAKE [id number] [place] [address] [place] MCH (RBC) [Entitic mass] 26.9 pg Normal 26.0-34.0 [facility] Comment on above: Order Comment: Speci men Type: BLOOD SPECIMENOrdering Facility: [facility] Address: [address] [place] [address] Performed By: #### 5 7021-8 ####[facility] HOSPITALNCTOOELE VAL[facility] [id number] [place] [address] [place] MCHC (RBC) [Mass/Vol] 31.5 g/dL Normal 30.5-36.0 [facility] Comment on above: Order Comment: Speci men Type: BLOOD SPECIMENOrdering Facility: [facility] Address: [address] [place] [address] Performed By: #### 5 7021-8 ####[facility] HOSPITALNCA [id number] [place] [address] [place] MCV (RBC) [Entitic vol] 85.5 fL Normal 80.0-100.0 [facility] Comment on above: Order Comment: Speci men Type: BLOOD SPECIMENOrdering Facility: [facility] Address: [address] [place] [address] Performed By: #### 5 7021-8 ####[facility] HOSPITALNCA [id number] [place] [address] [place] Monocytes (Bld) [#/Vol] 0.36 10*3/uL Normal <0.87 [facility] Comment on above: Order Comment: Speci men Type: BLOOD SPECIMENOrdering Facility: [facility] Address: [address] [place] [address] Performed By: #### 5 7021-8 ####[facility] ALYSSAPHOENIXZEVLIA [id number] [place] [address] [place] Monocytes/100 WBC (Bld) 14.4 % Normal [facility] Comment on above: Order Comment: Speci men Type: BLOOD SPECIMENOrdering Facility: [facility] Address: [address] [place] [address] Performed By: #### 5 7021-8 ####[facility] CENTERLIA [id number] [place] [address] [place] Neutrophils (Bld) [#/Vol] 1.83 10*3/uL Normal 1.45-7.50 [facility] Comment on above: Order Comment: Speci men Type: BLOOD SPECIMENOrdering Facility: [facility] Address: [address] [place] [address] Performed By: #### 5 7021-8 ####[facility]ITALA [id number] [place] [address] [place] Neutrophils/100 WBC (Bld) 73.2 % Normal [facility] Comment on above: Order Comment: Speci men Type: BLOOD SPECIMENOrdering Facility: [facility] Address: [address] [place] [address] Performed By: #### 5 7021-8 ####[facility] CENTERLIA [id number] [place] [address] [place] Nucleated RBC (Bld) [#/Vol] 10*3/uL Normal <0.01 [facility] Comment on above: Order Comment: Speci men Type: BLOOD SPECIMENOrdering Facility: [facility] Address: [address] [place] [address] Performed By: #### 5 7021-8 ####[facility] CENTERLIA [id number] [place] [address] [place] Nucleated RBC/100 WBC (Bld) [Ratio] 0.0 /100 WBC Normal [facility] Comment on above: Order Comment: Speci men Type: BLOOD SPECIMENOrdering Facility: [facility] Address: [address] [place] [address] Performed By: #### 5 7021-8 ####[facility]'S HOSPITALNICOLE [id number] [place] [address] [place] Platelet mean volume (Bld) [Entitic vol] 10.8 fL Normal 9.0-12.7 [facility] Comment on above: Order Comment: Speci men Type: BLOOD SPECIMENOrdering Facility: [facility] Address: [address] [place] [address] Performed By: #### 5 7021-8 ####[facility]'S HOSPITALZEVFroy [id number] [place] [address] [place] Platelets (Bld) [#/Vol] 118 10*3/uL Low 150-400 [facility] Comment on above: Order Comment: Speci men Type: BLOOD SPECIMENOrdering Facility: [facility] Address: [address] [place] [address] Performed By: #### 5 7021-8 ####[facility] CENTERBLAKE [id number] [place] [address] [place] RBC (Bld) [#/Vol] 4.01 10*6/uL Normal 3.90-5.20 [facility] Comment on above: Order Comment: Speci men Type: BLOOD SPECIMENOrdering Facility: [facility] Address: [address] [place] [address] Performed By: #### 5 7021-8 ####[facility] HOSPITALNCLIA [id number] [place] [address] [place] WBC (Bld) [#/Vol] 2.50 10*3/uL Low 3.70-11.00 [facility] Comment on above: Order Comment: Speci men Type: BLOOD SPECIMENOrdering Facility: [facility] Address: [address] [place] [address] Performed By: #### 5 7021-8 ####[facility] HOSPITALNCLIA [id number] [place] [address] [place] CNPNon 10-19-2024 CNPN Normal [facility] Comprehensive metabolic 2000 panelon 10-19-2024 Albumin [Mass/Vol] 3.7 g/dL Low 3.9-4.9 [facility] Comment on above: Order Comment: Speci men Type: BLOOD SPECIMENOrdering Facility: [facility] Address: [address] [place] [address] Performed By: #### 2 4323-8 ####[facility] HOSPITALNCA [id number] [place] [address] [place] ALP [Catalytic activity/Vol] 83 U/L Normal 34-123 [facility] Comment on above: Order Comment: Speci men Type: BLOOD SPECIMENOrdering Facility: [facility] Address: [address] [place] [address] Performed By: #### 2 4323-8 ####[facility] CENTERLIA [id number] [place] [address] [place] ALT [Catalytic activity/Vol] 13 U/L Normal 7-38 [facility] Comment on above: Order Comment: Speci men Type: BLOOD SPECIMENOrdering Facility: [facility] Address: [address] [place] [address] Performed By: #### 2 4323-8 ####[facility] HOSPITALNCLIA [id number] [place] [address] [place] Anion gap [Moles/Vol] 12 mmol/L Normal 8-15 [facility] Comment on above: Order Comment: Speci men Type: BLOOD SPECIMENOrdering Facility: [facility] Address: [address] [place] [address] Performed By: #### 2 4323-8 ####[facility] ALYSSAJAZMYN [id number] [place] [address] [place] AST [Catalytic activity/Vol] 18 U/L Normal 13-35 [facility] Comment on above: Order Comment: Speci men Type: BLOOD SPECIMENOrdering Facility: [facility] Address: [address] [place] [address] Performed By: #### 2 4323-8 ####[facility]'S HOSPITALNCBLAKE [id number] [place] [address] [place] Bilirubin [Mass/Vol] 0.2 mg/dL Normal 0.2-1.3 [facility] Comment on above: Order Comment: Speci men Type: BLOOD SPECIMENOrdering Facility: [facility] Address: [address] [place] [address] Performed By: #### 2 4323-8 ####[facility] HOSPITALNCLIA [id number] [place] [address] [place] Calcium [Mass/Vol] 9.2 mg/dL Normal 8.5-10.2 [facility] Comment on above: Order Comment: Speci men Type: BLOOD SPECIMENOrdering Facility: [facility] Address: [address] [place] [address] Performed By: #### 2 4323-8 ####[facility] HOSPITALNCLIA [id number] [place] [address] [place] Chloride [Moles/Vol] 101 mmol/L Normal 98-107 [facility] Comment on above: Order Comment: Speci men Type: BLOOD SPECIMENOrdering Facility: [facility] Address: [address] [place] [address] Performed By: #### 2 4323-8 ####[facility] SHALONDAWNCLIA [id number] [place] [address] [place] CO2 [Moles/Vol] 23 mmol/L Normal 22-30 [facility] Comment on above: Order Comment: Speci men Type: BLOOD SPECIMENOrdering Facility: [facility] Address: [address] [place] [address] Performed By: #### 2 4323-8 ####[facility] CENTERLIA [id number] [place] [address] [place] Creatinine [Mass/Vol] 0.64 mg/dL Normal 0.58-0.96 [facility] Comment on above: Order Comment: Speci men Type: BLOOD SPECIMENOrdering Facility: [facility] Address: [address] [place] [address] Performed By: #### 2 4323-8 ####[facility]ITALA [id number] [place] [address] [place] Creatinine and Glomerular filtration rate.predicted panel (S/P/Bld) 98 mL/min/1.73m??? Normal >=60 [facility] Comment on above: Order Comment: Speci men Type: BLOOD SPECIMENOrdering Facility: [facility] Address: [address] [place] [address] Result Comment: Sonia mated Glomerular Filtration Rate [...] actual GFR. Performed By: #### 2 4323-8 ####[facility] HOSPITALNCLIA [id number] [place] [address] [place] Glucose [Mass/Vol] 103 mg/dL High 74-99 [facility] Comment on above: Order Comment: Speci men Type: BLOOD SPECIMENOrdering Facility: [facility] Address: [address] [place], [place] [id number] Result Comment: The [place] [employer] (ADA) provides guidance for cutoff [...] Standards of Medical Care in Diabetes 2016, [place] [employer]. Diabetes Care. 2016.39(Suppl 1). Performed By: #### 2 4323-8 ####[facility] [id number] [place] [address] [place] Potassium [Moles/Vol] 3.2 mmol/L Low 3.7-5.1 [facility] Comment on above: Order Comment: Speci men Type: BLOOD SPECIMENOrdering Facility: [facility] Address: [address] [place] [address] Performed By: #### 2 4323-8 ####[facility] [id number] [place] [address] [place] Protein [Mass/Vol] 6.6 g/dL Normal 6.3-8.0 [facility] Comment on above: Order Comment: Speci men Type: BLOOD SPECIMENOrdering Facility: [facility] Address: [address] [place], [place] [address] Performed By: #### 2 4323-8 ####[facility] [id number] [place] [address] [place] Sodium [Moles/Vol] 136 mmol/L Normal 136-144 [facility] Comment on above: Order Comment: Speci men Type: BLOOD SPECIMENOrdering Facility: [facility] Address: [address] [id number] Performed By: #### 2 4323-8 ####[facility] ALYSSAPHOENIXNICOLE [id number] [address] [facility] Urea nitrogen [Mass/Vol] 9 mg/dL Normal 7-21 [facility] Comment on above: Order Comment: Speci men Type: BLOOD SPECIMENOrdering Facility: [facility] Address: [address] [place] [address] Performed By: #### 2 4323-8 ####[facility] [id number] [address] [place] Venous Duplex US, Unilateral on 10-19-2024 Venous Duplex US, Unilateral [facility] [address] [place] [address] Venous Duplex US, Unilateral 10/19/24 1404 MR#: [id number] Acct: [id number] Name: MARIMAR WANG Rep #: [id number] : 1960 64 From: Lincoln Richards MD Attending Dr: Dr. Josh Bennett, Status: REG CL I Ordering Dr: Josh Bennett DO Date: 10/19/24 Location: [facility] Sex: F C Admitted: Reason For Study [...] By: Kamilah Grider RVT ??? 10/19/241755 Date Lincoln Richards MD CC: 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-C Julio Arriaga; Dr. 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 [address] Venous Duplex US, Unilateral 10/19/241403 MR#: [id number] Acct: [id number] Name: MARIMAR WANG Rep #:[id number] : 1960 64 From: Lincoln Roberson [...] 10/19/241755 Date _ Lincoln Richards MD CC: 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-C Julio Arriaga; Dr. 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 [facility] Work Phone: CNPNon 10-16-2024 CNPN Normal [facility] CNOVon 10-13-2024 CNOV Normal [facility] CBC W Auto Differential pane l (Bld)on 10-12-2024 Basophils (Bld) [#/Vol] 0.05 10*3/uL [facility] Basophils/100 WBC (Bld) 1.4 % C [facility] Differential cell count method Nom (Bld) Auto [facility] Eosinophils (Bld) [#/Vol] 0.04 10*3/uL [facility] Eosinophils/100 WBC (Bld) 1.1 % [facility] Erythrocyte distribution width (RBC) [Ratio] 15.6 % High 11.5 - 15.0 % [facility] Hematocrit (Bld) [Volume fraction] 33.8 % Low 36.0 - 46.0 % [facility] Hemoglobin (Bld) [Mass/Vol] 10.4 g/dL Low 11.5 - 15.5 g/dL [facility] Immature granulocytes (Bld) [#/Vol] [facility] Immature granulocytes/100 WBC (Bld) 0.6 % [facility] Interpretation and review of laboratory results Abnormal [facility] Lymphocytes (Bld) [#/Vol] 0.48 10*3/uL Low [facility] Lymphocytes/100 WBC (Bld) 13.7 % [facility] MCH (RBC) [Entitic mass] 25.9 pg Low 26.0 - 34.0 pg [facility] MCHC (RBC) [Mass/Vol] 30.8 g/dL 30.5 - 36.0 g/dL [facility] MCV (RBC) [Entitic vol] 84.1 fL 80.0 - 100.0 fL [facility] Monocytes (Bld) [#/Vol] 0.07 10*3/uL [facility] Monocytes/100 WBC (Bld) 2 % C [facility] Neutrophils (Bld) [#/Vol] 2.85 10*3/uL [facility] Neutrophils/100 WBC (Bld) 81.2 % [facility] Nucleated RBC (Bld) [#/Vol] [facility] Nucleated RBC/100 WBC (Bld) [Ratio] 0 % /100 WBC [facility] Platelet mean volume (Bld) [Entitic vol] 9.9 fL 9.0 - 12.7 fL [facility] Platelets (Bld) [#/Vol] 166 10*3/uL [facility] RBC (Bld) [#/Vol] 4.02 10*6/uL 3.90 - 5.2 0 m/uL [facility] WBC (Bld) [#/Vol] 3.51 10*3/uL Low [facility] Basophils (Bld) [#/Vol] 0.05 10*3/uL Normal <0.11 [facility] Comment on above: Order Comment: Speci men Type: BLOOD SPECIMENOrdering Facility: [facility] Address: [address] [place], [place] [address] Performed By: #### 5 7021-8 ####[facility] MILLWNCLIA [id number] [place] [address] [place] Basophils/100 WBC (Bld) 1.4 % Normal [facility] Comment on above: Order Comment: Speci men Type: BLOOD SPECIMENOrdering Facility: [facility] Address: [address] [place] [address] Performed By: #### 5 7021-8 ####[facility] CENTERLIA [id number] [place] [address] [place] Differential cell count method Nom (Bld) Auto Normal [facility] Comment on above: Order Comment: Speci men Type: BLOOD SPECIMENOrdering Facility: [facility] Address: [address] [place] [address] Performed By: #### 5 7021-8 ####[facility] CENTERLIA [id number] [place] [address] [place] Eosinophils (Bld) [#/Vol] 0.04 10*3/uL Normal <0.46 [facility] Comment on above: Order Comment: Speci men Type: BLOOD SPECIMENOrdering Facility: [facility] Address: [address] [place] [address] Performed By: #### 5 7021-8 ####[facility] CENTERLIA [id number] [place] [address] [place] Eosinophils/100 WBC (Bld) 1.1 % Normal [facility] Comment on above: Order Comment: Speci men Type: BLOOD SPECIMENOrdering Facility: [facility] Address: [address] [place] [address] Performed By: #### 5 7021-8 ####[facility] HOSPITALNCLIA [id number] [place] [address] [place] Erythrocyte distribution width (RBC) [Ratio] 15.6 % High 11.5-15.0 [facility] Comment on above: Order Comment: Speci men Type: BLOOD SPECIMENOrdering Facility: [facility] Address: [address] [place] [address] Performed By: #### 5 7021-8 ####[facility] [id number] [place] [address] [place] Hematocrit (Bld) [Volume fraction] 33.8 % Low 36.0-46.0 [facility] Comment on above: Order Comment: Speci men Type: BLOOD SPECIMENOrdering Facility: [facility] Address: [address] [place] [address] Performed By: #### 5 7021-8 ####[facility] [id number] [place] [address] [place] Hemoglobin (Bld) [Mass/Vol] 10.4 g/dL Low 11.5-15.5 [facility] Comment on above: Order Comment: Speci men Type: BLOOD SPECIMENOrdering Facility: [facility] Address: [address] [place] [address] Performed By: #### 5 7021-8 ####[facility] [id number] [place] [address] [place] Immature granulocytes (Bld) [#/Vol] 10*3/uL Normal <0.10 [facility] Comment on above: Order Comment: Speci men Type: BLOOD SPECIMENOrdering Facility: [facility] Address: [address] [place] [address] Performed By: #### 5 7021-8 ####[facility] [id number] [place] [address] [place] Immature granulocytes/100 WBC (Bld) 0.6 % Normal [facility] Comment on above: Order Comment: Speci men Type: BLOOD SPECIMENOrdering Facility: [facility] Address: [address] [place] [address] Performed By: #### 5 7021-8 ####[facility] HOSPITALNICOLE [id number] [place] [address] [place] Lymphocytes (Bld) [#/Vol] 0.48 10*3/uL Low 1.00-4.00 [facility] Comment on above: Order Comment: Speci men Type: BLOOD SPECIMENOrdering Facility: [facility] Address: [address] [place] [address] Performed By: #### 5 7021-8 ####[facility] [id number] [place] [address] [place] Lymphocytes/100 WBC (Bld) 13.7 % Normal [facility] Comment on above: Order Comment: Speci men Type: BLOOD SPECIMENOrdering Facility: [facility] Address: [address] [place] [address] Performed By: #### 5 7021-8 ####[facility] [id number] [place] [address] [place] MCH (RBC) [Entitic mass] 25.9 pg Low 26.0-34.0 [facility] Comment on above: Order Comment: Speci men Type: BLOOD SPECIMENOrdering Facility: [facility] Address: [address] [place] [address] Performed By: #### 5 7021-8 ####[facility] HOSPITALNCLIA [id number] [place] [address] [place] MCHC (RBC) [Mass/Vol] 30.8 g/dL Normal 30.5-36.0 [facility] Comment on above: Order Comment: Speci men Type: BLOOD SPECIMENOrdering Facility: [facility] Address: [address] [place] [address] Performed By: #### 5 7021-8 ####[facility] MILLWNCLIA [id number] [place] [address] [place] MCV (RBC) [Entitic vol] 84.1 fL Normal 80.0-100.0 [facility] Comment on above: Order Comment: Speci men Type: BLOOD SPECIMENOrdering Facility: [facility] Address: [address] [place] [address] Performed By: #### 5 7021-8 ####[facility] FLORIDAWNCLIA [id number] [place] [address] [place] Monocytes (Bld) [#/Vol] 0.07 10*3/uL Normal <0.87 [facility] Comment on above: Order Comment: Speci men Type: BLOOD SPECIMENOrdering Facility: [facility] Address: [address] [place] [address] Performed By: #### 5 7021-8 ####[facility] CENTERLIA [id number] [place] [address] [place] Monocytes/100 WBC (Bld) 2.0 % Normal [facility] Comment on above: Order Comment: Speci men Type: BLOOD SPECIMENOrdering Facility: [facility] Address: [address] [place] [address] Performed By: #### 5 7021-8 ####[facility] FLORIDAWNCLIA [id number] [place] [address] [place] Neutrophils (Bld) [#/Vol] 2.85 10*3/uL Normal 1.45-7.50 [facility] Comment on above: Order Comment: Speci men Type: BLOOD SPECIMENOrdering Facility: [facility] Address: [address] [place] [address] Performed By: #### 5 7021-8 ####[facility] HOSPITALNCLIA [id number] [place] [address] [place] Neutrophils/100 WBC (Bld) 81.2 % Normal [facility] Comment on above: Order Comment: Speci men Type: BLOOD SPECIMENOrdering Facility: [facility] Address: [address] [place] [address] Performed By: #### 5 7021-8 ####[facility] [id number] [place] [address] [place] Nucleated RBC (Bld) [#/Vol] 10*3/uL Normal <0.01 [facility] Comment on above: Order Comment: Speci men Type: BLOOD SPECIMENOrdering Facility: [facility] Address: [address] [place] [address] Performed By: #### 5 7021-8 ####[facility] [id number] [place] [address] [place] Nucleated RBC/100 WBC (Bld) [Ratio] 0.0 /100 WBC Normal [facility] Comment on above: Order Comment: Speci men Type: BLOOD SPECIMENOrdering Facility: [facility] Address: [address] [place] [address] Performed By: #### 5 7021-8 ####[facility] [id number] [place] [address] [place] Platelet mean volume (Bld) [Entitic vol] 9.9 fL Normal 9.0-12.7 [facility] Comment on above: Order Comment: Speci men Type: BLOOD SPECIMENOrdering Facility: [facility] Address: [address] [place], [place] [id number] Performed By: #### 5 7021-8 ####[facility] [id number] [place] [address] [place] Platelets (Bld) [#/Vol] 166 10*3/uL Normal 150-400 [facility] Comment on above: Order Comment: Speci men Type: BLOOD SPECIMENOrdering Facility: [facility] Address: [address] [place] [address] Performed By: #### 5 7021-8 ####[facility] ALYSSAPHOENIXHAMLETA [id number] [place] [address] [place] RBC (Bld) [#/Vol] 4.02 10*6/uL Normal 3.90-5.20 [facility] Comment on above: Order Comment: Speci men Type: BLOOD SPECIMENOrdering Facility: [facility] Address: [address] [place] [address] Performed By: #### 5 7021-8 ####[facility] ALYSSAPHOENIXNCLIA [id number] [place] [address] [place] WBC (Bld) [#/Vol] 3.51 10*3/uL Low 3.70-11.00 [facility] Comment on above: Order Comment: Speci men Type: BLOOD SPECIMENOrdering Facility: [facility] Address: [address] [place] [address] Performed By: #### 5 7021-8 ####[facility]ICAL CENTERTIFFANIA [id number] [place] [address] [place] CNPNon 10-12-2024 CNPN Normal [facility] CNPNon 10-08-2024 CNPN Normal [facility] CNOVon 10-06-2024 CNOV Normal [facility] CNPNon 10-06-2024 CNPN Normal [facility] CBC W Auto Differential pane l (Bld)on 10-05-2024 Basophils (Bld) [#/Vol] 0.08 10*3/uL [facility] Basophils/100 WBC (Bld) 1.2 % [facility] Differential cell count method Nom (Bld) Auto [facility] Eosinophils (Bld) [#/Vol] 0.18 10*3/uL [facility] Eosinophils/100 WBC (Bld) 2.6 % [facility] Erythrocyte distribution width (RBC) [Ratio] 16.5 % High 11.5 - 15.0 % [facility] Hematocrit (Bld) [Volume fraction] 36.2 % 36.0 - 46.0 % [facility] Hemoglobin (Bld) [Mass/Vol] 11.1 g/dL Low 11.5 - 15.5 g/dL [facility] Immature granulocytes (Bld) [#/Vol] 0.03 10*3/uL [facility] Immature granulocytes/100 WBC (Bld) 0.4 % [facility] Interpretation and review of laboratory results Abnormal [facility] Lymphocytes (Bld) [#/Vol] 1.27 10*3/uL [facility] Lymphocytes/100 WBC (Bld) 18.4 % [facility] MCH (RBC) [Entitic mass] 25.6 pg Low 26.0 - 34.0 pg [facility] MCHC (RBC) [Mass/Vol] 30.7 g/dL 30.5 - 36.0 g/dL [facility] MCV (RBC) [Entitic vol] 83.6 fL 80.0 - 100.0 fL [facility] Monocytes (Bld) [#/Vol] 0.5 10*3/uL [facility] Monocytes/100 WBC (Bld) 7.2 % [facility] Neutrophils (Bld) [#/Vol] 4.84 10*3/uL [facility] Neutrophils/100 WBC (Bld) 70.2 % [facility] Nucleated RBC (Bld) [#/Vol] [facility] Nucleated RBC/100 WBC (Bld) [Ratio] 0 % /100 WBC [facility] Platelet mean volume (Bld) [Entitic vol] 10.6 fL 9.0 - 12.7 fL [facility] Platelets (Bld) [#/Vol] 240 10*3/uL [facility] RBC (Bld) [#/Vol] 4.33 10*6/uL 3.90 - 5.2 0 m/uL [facility] WBC (Bld) [#/Vol] 6.9 10*3/uL [facility] Basophils (Bld) [#/Vol] 0.08 10*3/uL Normal <0.11 [facility] Comment on above: Order Comment: Speci men Type: BLOOD SPECIMENOrdering Facility: [facility] Address: [address] [place] [address] Performed By: #### 5 7021-8 ####[facility] HOSPITALZEVLIA [id number] [place] [address] [place] Basophils/100 WBC (Bld) 1.2 % Normal [facility] Comment on above: Order Comment: Speci men Type: BLOOD SPECIMENOrdering Facility: [facility] Address: [address] [place] [address] Performed By: #### 5 7021-8 ####[facility] CENTERLIA [id number] [place] [address] [place] Differential cell count method Nom (Bld) Auto Normal [facility] Comment on above: Order Comment: Speci men Type: BLOOD SPECIMENOrdering Facility: [facility] Address: [address] [place] [address] Performed By: #### 5 7021-8 ####[facility]PITALA [id number] [place] [address] [place] Eosinophils (Bld) [#/Vol] 0.18 10*3/uL Normal <0.46 [facility] Comment on above: Order Comment: Speci men Type: BLOOD SPECIMENOrdering Facility: [facility] Address: [address] [place] [address] Performed By: #### 5 7021-8 ####[facility] CENTERLIA [id number] [place] [address] [place] Eosinophils/100 WBC (Bld) 2.6 % Normal [facility] Comment on above: Order Comment: Speci men Type: BLOOD SPECIMENOrdering Facility: [facility] Address: [address] [place] [address] Performed By: #### 5 7021-8 ####[facility] HOSPITALNCLIA [id number] [place] [id number] [place] Erythrocyte distribution width (RBC) [Ratio] 16.5 % High 11.5-15.0 [facility] Comment on above: Order Comment: Speci men Type: BLOOD SPECIMENOrdering Facility: [facility] Address: [address] [place] [address] Performed By: #### 5 7021-8 ####[facility] HOSPITALNCTIFFANIA [id number] [place] [address] [place] Hematocrit (Bld) [Volume fraction] 36.2 % Normal 36.0-46.0 [facility] Comment on above: Order Comment: Speci men Type: BLOOD SPECIMENOrdering Facility: [facility] Address: [address] [place] [address] Performed By: #### 5 7021-8 ####[facility] HOSPITALNCTOOELE VALLEY [facility] [id number] [place] [address] [place] Hemoglobin (Bld) [Mass/Vol] 11.1 g/dL Low 11.5-15.5 [facility] Comment on above: Order Comment: Speci men Type: BLOOD SPECIMENOrdering Facility: [facility] Address: [address] [place] [address] Performed By: #### 5 7021-8 ####[facility] HOSPITALNCLIA [id number] [place] [address] [place] Immature granulocytes (Bld) [#/Vol] 0.03 10*3/uL Normal <0.10 [facility] Comment on above: Order Comment: Speci men Type: BLOOD SPECIMENOrdering Facility: [facility] Address: [address] [place] [address] Performed By: #### 5 7021-8 ####[facility] HOSPITALNCLIA [id number] [place] [address] [place] Immature granulocytes/100 WBC (Bld) 0.4 % Normal [facility] Comment on above: Order Comment: Speci men Type: BLOOD SPECIMENOrdering Facility: [facility] Address: [address] [place] [address] Performed By: #### 5 7021-8 ####[facility] ALYSSAJamirNCBLAKE [id number] [place] [address] [place] Lymphocytes (Bld) [#/Vol] 1.27 10*3/uL Normal 1.00-4.00 [facility] Comment on above: Order Comment: Speci men Type: BLOOD SPECIMENOrdering Facility: [facility] Address: [address] [place] [address] Performed By: #### 5 7021-8 ####[facility] HOSPITALNCTOOELE VALLEY HOSPITAL [id number] [place] [address] [place] Lymphocytes/100 WBC (Bld) 18.4 % Normal [facility] Comment on above: Order Comment: Speci men Type: BLOOD SPECIMENOrdering Facility: [facility] Address: [address] [place] [address] Performed By: #### 5 7021-8 ####[facility] HOSPITALNCLI [id number] [place] [address] [place] MCH (RBC) [Entitic mass] 25.6 pg Low 26.0-34.0 [facility] Comment on above: Order Comment: Speci men Type: BLOOD SPECIMENOrdering Facility: [facility] Address: [address] [place] [address] Performed By: #### 5 7021-8 ####[facility] HOSPITALNCLIA [id number] [place] [address] [place] MCHC (RBC) [Mass/Vol] 30.7 g/dL Normal 30.5-36.0 [facility] Comment on above: Order Comment: Speci men Type: BLOOD SPECIMENOrdering Facility: [facility] Address: [address] [place] [address] Performed By: #### 5 7021-8 ####[facility] ALYSSAWNCLIA [id number] [place] [address] [place] MCV (RBC) [Entitic vol] 83.6 fL Normal 80.0-100.0 [facility] Comment on above: Order Comment: Speci men Type: BLOOD SPECIMENOrdering Facility: [facility] Address: [address] [place] [address] Performed By: #### 5 7021-8 ####[facility] CENTERLIA [id number] [place] [address] [place] Monocytes (Bld) [#/Vol] 0.50 10*3/uL Normal <0.87 [facility] Comment on above: Order Comment: Speci men Type: BLOOD SPECIMENOrdering Facility: [facility] Address: [address] [place] [address] Performed By: #### 5 7021-8 ####[facility] HOSPITALA [id number] [place] [address] [place] Monocytes/100 WBC (Bld) 7.2 % Normal [facility] Comment on above: Order Comment: Speci men Type: BLOOD SPECIMENOrdering Facility: [facility] Address: [address] [place] [address] Performed By: #### 5 7021-8 ####[facility] CENTERLIA [id number] [place] [address] [place] Neutrophils (Bld) [#/Vol] 4.84 10*3/uL Normal 1.45-7.50 [facility] Comment on above: Order Comment: Speci men Type: BLOOD SPECIMENOrdering Facility: [facility] Address: [address] [place] [address] Performed By: #### 5 7021-8 ####[facility] HOSPITALNCLIA [id number] [place] [address] [place] Neutrophils/100 WBC (Bld) 70.2 % Normal [facility] Comment on above: Order Comment: Speci men Type: BLOOD SPECIMENOrdering Facility: [facility] Address: [address] [place] [address] Performed By: #### 5 7021-8 ####[facility] HOSPITALNCTOOELE VALLEY H[facility]PITAL [id number] [place] [address] [place] Nucleated RBC (Bld) [#/Vol] 10*3/uL Normal <0.01 [facility] Comment on above: Order Comment: Speci men Type: BLOOD SPECIMENOrdering Facility: [facility] Address: [address] [place] [address] Performed By: #### 5 7021-8 ####[facility] HOSPITALNCTOOELE VALLEY HOSP[facility] [id number] [place] [address] [place] Nucleated RBC/100 WBC (Bld) [Ratio] 0.0 /100 WBC Normal [facility] Comment on above: Order Comment: Speci men Type: BLOOD SPECIMENOrdering Facility: [facility] Address: [address] [place] [address] Performed By: #### 5 7021-8 ####[facility] HOSPITALNCLIA [id number] [place] [address] [place] Platelet mean volume (Bld) [Entitic vol] 10.6 fL Normal 9.0-12.7 [facility] Comment on above: Order Comment: Speci men Type: BLOOD SPECIMENOrdering Facility: [facility] Address: [address] [place] [address] Performed By: #### 5 7021-8 ####[facility] HOSPITALNCLIA [id number] [place] [address] [place] Platelets (Bld) [#/Vol] 240 10*3/uL Normal 150-400 [facility] Comment on above: Order Comment: Speci men Type: BLOOD SPECIMENOrdering Facility: [facility] Address: [address] [place] [address] Performed By: #### 5 7021-8 ####[facility] RIGOBERTOPORTER MEDICAL CENTERWNCLIA [id number] [place] [address] [place] RBC (Bld) [#/Vol] 4.33 10*6/uL Normal 3.90-5.20 [facility] Comment on above: Order Comment: Speci men Type: BLOOD SPECIMENOrdering Facility: [facility] Address: [address] [place] [address] Performed By: #### 5 7021-8 ####[facility] HOSPITALNCLIA [id number] [place] [address] [place] WBC (Bld) [#/Vol] 6.90 10*3/uL Normal 3.70-11.00 [facility] Comment on above: Order Comment: Speci men Type: BLOOD SPECIMENOrdering Facility: [facility] Address: [address] [place] [address] Performed By: #### 5 7021-8 ####[facility] HOSPITALNCLIA [id number] [place] [address] [place] Comprehensive metabolic 2000 panelOrdered By: Cyndie Zhou on 10-05-2024 Albumin [Mass/Vol] 3.7 g/dL Low 3.9 - 4.9 g/dL [facility] ALP [Catalytic activity/Vol] 83 U/L 34 - 123 U/L [facility] ALT [Catalytic activity/Vol] 8 U/L 7 - 38 U/L [facility] Anion gap [Moles/Vol] 9 mmol/L 8 - 15 mmol/L [facility] AST [Catalytic activity/Vol] 16 U/L 13 - 35 U/L [facility] Bilirubin [Mass/Vol] 0.2 mg/dL 0.2 - 1 .3 mg/dL [facility] Calcium [Mass/Vol] 9.1 mg/dL 8.5 - 10. 2 mg/dL [facility] Chloride [Moles/Vol] 100 mmol/L 98 - 10 7 mmol/L [facility] CO2 [Moles/Vol] 25 mmol/L 22 - 30 mmol/L [facility] Creatinine [Mass/Vol] 0.67 mg/dL 0.58 - 0.96 mg/dL [facility] GFR/1.73 sq M.predicted among non-blacks MDRD (S/P/Bld) [Vol rate/Area] 97 mL/min/{1.73_m2} - PINF [facility] Comment on above: Estimated Glomerular Filtration [...] 105 mg/dL High 74 - 99 mg/dL [facility] Comment on above: The [place] [employer] (ADA) provides guidance for [...] Standards of Medical Care in Diabetes 2016, [place] [employer]. Diabetes Care. 2016.39(Suppl 1). Interpretation and review of laboratory results Abnormal [facility] Potassium [Moles/Vol] 4.1 mmol/L 3.7 - 5.1 mmol/L [facility] Protein [Mass/Vol] 6.7 g/dL 6.3 - 8.0 g/dL [facility] Sodium [Moles/Vol] 134 mmol/L Low 136 - 144 mmol/L [facility] Urea nitrogen [Mass/Vol] 11 mg/dL 7 - 21 mg/dL [facility] Comprehensive metabolic 2000 panelon 10-05-2024 Albumin [Mass/Vol] 3.7 g/dL Low 3.9-4.9 [facility] Comment on above: Order Comment: Speci men Type: BLOOD SPECIMENOrdering Facility: [facility] Address: [address] [place] [address] Performed By: #### 2 4323-8 ####[facility] MILLWNCLIA [id number] [place] [address] [place] ALP [Catalytic activity/Vol] 83 U/L Normal 34-123 [facility] Comment on above: Order Comment: Speci men Type: BLOOD SPECIMENOrdering Facility: [facility] Address: [address] [place] [address] Performed By: #### 2 4323-8 ####[facility] CENTERLIA [id number] [place] [address] [place] ALT [Catalytic activity/Vol] 8 U/L Normal 7-38 [facility] Comment on above: Order Comment: Speci men Type: BLOOD SPECIMENOrdering Facility: [facility] Address: [address] [place] [address] Performed By: #### 2 4323-8 ####[facility] CENTERLIA [id number] [place] [address] [place] Anion gap [Moles/Vol] 9 mmol/L Normal 8-15 [facility] Comment on above: Order Comment: Speci men Type: BLOOD SPECIMENOrdering Facility: [facility] Address: [address] [place] [address] Performed By: #### 2 4323-8 ####[facility] CENTERLIA [id number] [place] [address] [place] AST [Catalytic activity/Vol] 16 U/L Normal 13-35 [facility] Comment on above: Order Comment: Speci men Type: BLOOD SPECIMENOrdering Facility: [facility] Address: [address] [place] [address] Performed By: #### 2 4323-8 ####[facility] MILLTOWNCLIA [id number] [place] [address] [place] Bilirubin [Mass/Vol] 0.2 mg/dL Normal 0.2-1.3 [facility] Comment on above: Order Comment: Speci men Type: BLOOD SPECIMENOrdering Facility: [facility] Address: [address] [place] [address] Performed By: #### 2 4323-8 ####[facility] MILLTOWNCLIA [id number] [place] [address] [place] Calcium [Mass/Vol] 9.1 mg/dL Normal 8.5-10.2 [facility] Comment on above: Order Comment: Speci men Type: BLOOD SPECIMENOrdering Facility: [facility] Address: [address] [place] [address] Performed By: #### 2 4323-8 ####[facility]IDAW[facility]CL[facility] [id number] [place] [address] [place] Chloride [Moles/Vol] 100 mmol/L Normal 98-107 [facility] Comment on above: Order Comment: Speci men Type: BLOOD SPECIMENOrdering Facility: [facility] Address: [address] [place] [address] Performed By: #### 2 4323-8 ####[facility] MILLTOWNCLIA [id number] [place] [address] [place] CO2 [Moles/Vol] 25 mmol/L Normal 22-30 [facility] Comment on above: Order Comment: Speci men Type: BLOOD SPECIMENOrdering Facility: [facility] Address: [address] [place] [address] Performed By: #### 2 4323-8 ####[facility] MILLTOWNCLIA [id number] [place] [address] [place] Creatinine [Mass/Vol] 0.67 mg/dL Normal 0.58-0.96 [facility] Comment on above: Order Comment: Mindy mcfarlane Type: BLOOD SPECIMENOrdering Facility: [facility] Address: [address] [place] [address] Performed By: #### 2 4323-8 ####[facility] [id number] [place] [address] [place] [facility] Creatinine and Glomerular filtration rate.predicted panel (S/P/Bld) 97 mL/min/1.73m??? Normal >=60 [facility] Comment on above: Order Comment: Mindy mcfarlane Type: BLOOD SPECIMENOrdering Facility: [facility] Address: [address] [place] [address] Result Comment: Sonia mated Glomerular Filtration Rate [...] actual GFR. Performed By: #### 2 4323-8 ####[facility] [id number] [place] [address] [place] Glucose [Mass/Vol] 105 mg/dL High 74-99 [facility] Comment on above: Order Comment: Mindy mcfarlane Type: BLOOD SPECIMENOrdering Facility: [facility] Address: [address] [place] [address] Result Comment: The [place] [employer] (ADA) provides guidance for cutoff [...] Standards of Medical Care in Diabetes 2016, [place] [employer]. Diabetes Care. 2016.39(Suppl 1). Performed By: #### 2 4323-8 ####[facility] [id number] [place] [address] [place] Potassium [Moles/Vol] 4.1 mmol/L Normal 3.7-5.1 [facility] Comment on above: Order Comment: Speci men Type: BLOOD SPECIMENOrdering Facility: [facility] Address: [address] [place] [address] Performed By: #### 2 4323-8 ####[facility] [id number] [place] [address] [place] Protein [Mass/Vol] 6.7 g/dL Normal 6.3-8.0 [facility] Comment on above: Order Comment: Speci men Type: BLOOD SPECIMENOrdering Facility: [facility] Address: [address] [place] [address] Performed By: #### 2 4323-8 ####[facility] [id number] [place] [address] [place] Sodium [Moles/Vol] 134 mmol/L Low 136-144 [facility] Comment on above: Order Comment: Speci men Type: BLOOD SPECIMENOrdering Facility: [facility] Address: [address] [place] [address] Performed By: #### 2 4323-8 ####[facility] [id number] [place] [address] [place] Urea nitrogen [Mass/Vol] 11 mg/dL Normal 7-21 [facility] Comment on above: Order Comment: Speci men Type: BLOOD SPECIMENOrdering Facility: [facility] Address: [address] [place] [address] Performed By: #### 2 4323-8 ####[facility] [id number] [place] [address] [place] CNOVon 09-30-2024 CNOV Normal [facility] Culture, Blood (WB)on 2024 CUB Blood cultures x2, f rom two different sites No growth in 5 days. Normal [facility] Comment on above: Performed By: #### L 500.4050, L100.0100, M200.1000, L503.6005 ####[facility] [address] [place], [place], [id number] HIGH RISK HUMAN PAPILLOMA ART (HPV), PCR FOR DETECTION AND GENOTYPINGon 09-30-2024 HPV 16 Ag Ql (Unsp spec) Not detected Normal Not detected [facility] Comment on above: Order Comment: Speci men Type: FLUID SPECIMENOrdering Facility: [facility] Address: [address] [place] [address] Performed By: #### H PVHRT ####[facility] [id number] [place] [address] [place] HPV 18 Ag Ql (Unsp spec) Not detected Normal Not detected [facility] Comment on above: Order Comment: Speci men Type: FLUID SPECIMENOrdering Facility: [facility] Address: [address] [place] [address] Performed By: #### H PVHRT ####[facility] [id number] [place] [address] [place] HPV 31+33+35+39+45+51+52+56 +58+59+66+68 DNA CORAL+probe Ql (Cvx) Not detected Normal Not detected [facility] Comment on above: Order Comment: Speci men Type: FLUID SPECIMENOrdering Facility: [facility] Address: [address] [place] [address] Result Comment: High Risk HPV Other Type includes HPV types 31, 33, 35, 39, 45, 51, 52, 56, 58, 59, 66 and 68. Performed By: #### H PVHRT ####[facility] LABCLIA [id number] [address] [address] [place] MARIA TERESA SCREENING W TOMOon 09-30 MARIA TERESA SCREENING W CAMERON Normal [facility] PAP TESTon 09-30-2024 ADEQUACY Satisfactory for interpretation. Normal [facility] Comment on above: Order Comment: Speci men Type: FLUID SPECIMENOrdering Facility: [facility] Address: [address] [place] [address] Performed By: #### L [id number] ####[facility]ATORYCL[facility] [id number] [address] LABCLIA [id number] [place] [address] [place] CASE REPORT Normal [facility] Comment on above: Order Comment: Speci men Type: FLUID SPECIMENOrdering Facility: [facility] Address: [address] [place] [address] Result Comment: Gyne cologic Cytology Report Case: [id number] Provider: Juan José Cheema MD Collected: 09/30/2024 10:46 AMOrdering Location: OB/Gynecology Received: 09/30/2024 02:02 PMFirst Screen: Gmitro, Willie, CT, ASCPSpecimen: Pap Test, ThinPrep, Cervix Performed By: #### L [id number] ####[facility]ORATORYCLIA [id number] [address] LABCLIA [id number] [place] [address] [place] CLINICAL HISTORY, CYTOLOGY, MAINTENANCE MACHINE REPAIRER Routine Exam Normal [facility] Comment on above: Order Comment: Speci men Type: FLUID SPECIMENOrdering Facility: [facility] Address: [address] [place] [address] Performed By: #### L [id number] ####[facility] [id number] [place] [address] [facility] LABCLIA [id number] [place] [id number] [place] [facility] CYTOLOGY PAP OTHER INTERPRETATION Atrophic specimen. Normal [facility] Comment on above: Order Comment: Speci men Type: FLUID SPECIMENOrdering Facility: [facility] Address: [address] [place] [address] Performed By: #### L [id number] ####[facility]ATORYCLIA [id number] [place] [id number] [facility] LABCLIA [id number] [address] FINAL PERFORMING LAB Normal [facility] Comment on above: Order Comment: Speci men Type: FLUID SPECIMENOrdering Facility: [facility] Address: [address] [place] [address] Result Comment: Tech nical component, mine wirer screening performed at [facility], [address] [place] [address] CLIA# [id number] interpretation performed at [facility], [address] [place] [address] CLIA# [id number] Director: Joan Riley M.D. Performed By: #### L [id number] ####[facility]ORYCLIA [id number] [place] [id number] [facility] LABCLIA [id number] [address] [address] [facility] [place] INTERPRETATION, CYTOLOGY, MAINTENANCE MACHINE REPAIRER Normal [facility] Comment on above: Order Comment: Speci men Type: FLUID SPECIMENOrdering Facility: [facility] Address: [address] [place] [address] Result Comment: Nega tive for intraepithelial lesion or malignancy. at 1545 EDT Performed By: #### L [id number] ####[facility]ORATORYCLIA [id number] [place] [address] [facility] LABCLIA [id number] [address] [place] [address] [place] LMP 01/22/2010 Normal [facility] Comment on above: Order Comment: Speci men Type: FLUID SPECIMENOrdering Facility: [facility] Address: [address] [place] [address] Performed By: #### L [id number] ####[facility]ORATORYCLIA [id number] [place] [address] [facility] LABCLIA [id number] [address] [place] [address] [place] PAP DISCLAIMER COMMENT The Pap Smear is a screening test for cervical cancer. False negative results occur with all screening tests, emphasizing the need for rescreening at recommended intervals, and clinical correlation. Normal [facility] Comment on above: Order Comment: Speci men Type: FLUID SPECIMENOrdering Facility: [facility] Address: [address] [place] [address] Performed By: #### L [id number] ####[facility]ORATORYCLIA [id number] [place] [id number] [facility] LABCLIA [id number] [address] [place] [address] [place] PAP BRASS BOBBIN WINDER COMMENT Normal [facility] Comment on above: Order Comment: Speci men Type: FLUID SPECIMENOrdering Facility: [facility] Address: [address] [place], [place] [id number] Performed By: #### L [id number] ####[facility]ORATORYCLIA [id number] [place] [address] [facility] LABCLIA [id number] [facility] [address] [place] [address] [place] CNADon 09-29-2024 MARIMAR ROSADO ([id number]) 1960 F Date Time Provider Department 09/29/24 RAUL HENDRIX Normal [facility] CNPNon 09-28-2024 CNPN Telephone (MARINAHEUHWN ) -------- MARIMAR WANG ([id number]) 1960 F Date Time Provider Department 09/28/24 SARAH PEARSONUHJUSTICE During your visit today, we recorded the [...] 80 mg by mouth once daily. - zqunjo-dkfhkyli-dtrgvcs (CREON 36) 36,000-114,000- 180,000 unit delayed release [...] and pneumonia Meds Comments as of 02/06/2017: Xeldebby use pharmacy [facility] Specialty pharmacy [place] [phone] Problem List As Of Date 09/28/2024 Noted [...] PVC's (premature (more content not included)... Normal [facility] Absolute lymphocyte countOrd ered By: Pawel Cason on 09-24-2024 Lymphocytes Auto (Unsp spec) [#/Vol] 1.59 10*3/uL 0.83-4.51 [facility] Absolute neutrophil countOrd ered By: Pawel Cason on 09-24-2024 Neutrophils (Bld) [#/Vol] 7.0 10*3/uL 2.0-7.7 [facility] Automated lymphocyte count a s percentage of total leukocytesOrdered By: Pawel Cason on 09-24-2024 Lymphocytes/100 WBC Auto (Unsp spec) 15.7 % Low 19-41 [facility] BUN/creatinine ratioOrdered By: Pawel Cason on 09-24-2024 Urea nitrogen/Creatinine [Mass ratio] 15.0 mg/mg 10-20 [facility] Basophil percentageOrdered B y: Pawel Cason on 09-24-2024 Basophils/100 WBC (Bld) 1.1 % High 0-1 [facility] Bilirubin, totalOrdered By: Pawelladonna Cason on 09-24-2024 Bilirubin [Mass/Vol] 0.18 mg/dL 0.00-1.30 [facility] Blood cultureOrdered By: [facility] on 09-24-2024 Bacteria identified Cx Nom (Bld) No growth in 5 days. [facility] Bacteria identified Cx Nom (Bld) No growth in 5 days. [facility] CBC W/Diff, Automatedon 08-30 Absolute Lymph 1.59 X10 3/uL Normal 0.83-4.51 [facility] Comment on above: Performed By: #### L 500.4050, L100.0100, M200.1000, L503.6005 #### [facility] [address] [place], [address] Absolute Neut 7.0 X10 3/uL Normal 2.0-7.7 [facility] Comment on above: Performed By: #### L 500.4050, L100.0100, M200.1000, L503.6005 #### [facility] [address] [place], [address] Basophils/100 WBC (Bld) 1.1 % High 0-1 [facility] Comment on above: Performed By: #### L 500.4050, L100.0100, M200.1000, L503.6005 #### [facility] [address] [place], [address] Eosinophils/100 WBC (Bld) 1.9 % Normal 0-5 [facility] Comment on above: Performed By: #### L 500.4050, L100.0100, M200.1000, L503.6005 #### [facility] [address] [place], [address] Erythrocyte distribution width (RBC) [Ratio] 16.3 % High 11.6-14.6 [facility] Comment on above: Performed By: #### L 500.4050, L100.0100, M200.1000, L503.6005 #### [facility] [address] [place], [address] Hematocrit (Bld) [Volume fraction] 34.4 % Low 37-47 [facility] Comment on above: Performed By: #### L 500.4050, L100.0100, M200.1000, L503.6005 #### [facility] [address] [place], [address] Hemoglobin (Bld) [Mass/Vol] 10.7 g/dL Low 12.0-15.0 [facility] Comment on above: Performed By: #### L 500.4050, L100.0100, M200.1000, L503.6005 #### [facility] [address] [place], [address] IG% 1.000 High 0.0-0.9 [facility] Comment on above: Result Comment: IG% - Immature Granulocytes (promyelocytes, myelocytes and metamyelocytes) > 1% indicates that a LEFT SHIFT is Present. Performed By: #### L 500.4050, L100.0100, M200.1000, L503.6005 #### [facility] [address] [place], [address] Lymphocytes/100 WBC (Bld) 15.7 % Low 19-41 [facility] Comment on above: Performed By: #### L 500.4050, L100.0100, M200.1000, L503.6005 #### [facility] [address] [place], [address] MCH (RBC) [Entitic mass] 25.8 pg Low 27.0-32.0 [facility] Comment on above: Performed By: #### L 500.4050, L100.0100, M200.1000, L503.6005 #### [facility] [address] [place], [address] MCHC (RBC) [Mass/Vol] 31.1 g/dL Low 32-36 [facility] Comment on above: Performed By: #### L 500.4050, L100.0100, M200.1000, L503.6005 #### [facility] [address] [place], [address] MCV (RBC) [Entitic vol] 83.1 fL Normal 81-99 [facility] Comment on above: Performed By: #### L 500.4050, L100.0100, M200.1000, L503.6005 #### [facility] [address] [place], [address] Monocytes/100 WBC (Bld) 11.2 % High 0-10 [facility] Comment on above: Performed By: #### L 500.4050, L100.0100, M200.1000, L503.6005 #### [facility] [address] [place], [address] Neutrophils/100 WBC (Bld) 69.1 % Normal 47-70 [facility] Comment on above: Performed By: #### L 500.4050, L100.0100, M200.1000, L503.6005 #### [facility] [address] [place], [address] Nucleated RBC (Bld) [#/Vol] 0 10*3/uL Normal 0-5 [facility] Comment on above: Performed By: #### L 500.4050, L100.0100, M200.1000, L503.6005 #### [facility] [address] [place], [address] Platelet mean volume (Bld) [Entitic vol] 11.3 fL Normal 6.2-12.0 [facility] Comment on above: Performed By: #### L 500.4050, L100.0100, M200.1000, L503.6005 #### [facility] [address] [place], [address] Platelets (Bld) [#/Vol] 258 10*3/uL Normal 150-450 [facility] Comment on above: Performed By: #### L 500.4050, L100.0100, M200.1000, L503.6005 #### [facility] [address] [place], [address] RBC (Bld) [#/Vol] 4.14 10*6/uL Low 4.2-5.4 [facility] Comment on above: Performed By: #### L 500.4050, L100.0100, M200.1000, L503.6005 #### [facility] [address] [place], [address] RDW SD 49.1 fl High 35.1-43.9 [facility] Comment on above: Performed By: #### L 500.4050, L100.0100, M200.1000, L503.6005 #### [facility] [address] [place], [address] WBC (Bld) [#/Vol] 10.1 10*3/uL Normal 4.4-11.0 [facility] Comment on above: Performed By: #### L 500.4050, L100.0100, M200.1000, L503.6005 #### [facility] [address] [place], [address] CNOVon 09-24-2024 CNOV Normal [facility] CNPNon 09-24-2024 CNPN Normal [facility] Carbon dioxide measurementOr dered By: Pawel Cason on 09-24-2024 CO2 [Moles/Vol] 23.1 mmol/L 22.0-29.0 [facility] Chloride measurementOrdered By: Pawel Cason on 09-24-2024 Chloride [Moles/Vol] 99 mmol/L 96-108 [facility] Comprehensive Metabolic Prof ilon 09-24-2024 Albumin [Mass/Vol] 3.5 g/dL Normal 3.4-4.8 [facility] Comment on above: Performed By: #### L 500.4050, L100.0100, M200.1000, L503.6005 #### [facility] [address] [place], [address] Albumin/Globulin [Mass ratio] 1.0 {ratio} Normal 0.9-2.4 [facility] Comment on above: Performed By: #### L 500.4050, L100.0100, M200.1000, L503.6005 #### [facility] [address] [place], [address] ALK PHOS 97 U/L Normal 35-104 [facility] Comment on above: Performed By: #### L 500.4050, L100.0100, M200.1000, L503.6005 #### [facility] [address] [place], [address] ALT [Catalytic activity/Vol] 10 U/L Normal <=34 [facility] Comment on above: Performed By: #### L 500.4050, L100.0100, M200.1000, L503.6005 #### [facility] [address] [place], [address] Anion gap [Moles/Vol] 11 mmol/L Normal 5-15 [facility] Comment on above: Performed By: #### L 500.4050, L100.0100, M200.1000, L503.6005 #### [facility] [address] [place], [address] AST [Catalytic activity/Vol] 20 U/L Normal <=31 [facility] Comment on above: Performed By: #### L 500.4050, L100.0100, M200.1000, L503.6005 #### [facility] [address] [place], [address] Bilirubin [Mass/Vol] 0.18 mg/dL Normal 0.00-1.30 [facility] Comment on above: Performed By: #### L 500.4050, L100.0100, M200.1000, L503.6005 #### [facility] [address] [place], [address] BUN/CRE 15.0 RATIO Normal 10-20 [facility] Comment on above: Performed By: #### L 500.4050, L100.0100, M200.1000, L503.6005 #### [facility] [address] [place], [address] Calcium [Mass/Vol] 8.7 mg/dL Normal 7.6-11.0 [facility] Comment on above: Performed By: #### L 500.4050, L100.0100, M200.1000, L503.6005 #### [facility] [address] [place], [address] Chloride [Moles/Vol] 99 mmol/L Normal 96-108 [facility] Comment on above: Performed By: #### L 500.4050, L100.0100, M200.1000, L503.6005 #### [facility] [address] [place], [address] CO2 [Moles/Vol] 23.1 mmol/L Normal 22.0-29.0 [facility] Comment on above: Performed By: #### L 500.4050, L100.0100, M200.1000, L503.6005 #### [facility] [address] [place], [address] Creatinine [Mass/Vol] 0.69 mg/dL Low 0.70-1.20 [facility] Comment on above: Performed By: #### L 500.4050, L100.0100, M200.1000, L503.6005 #### [facility] [address] [place], [address] ECRCL 72.55 ml/min Normal [facility] Comment on above: Performed By: #### L 500.4050, L100.0100, M200.1000, L503.6005 #### [facility] [address] [place], [address] GFR/1.73 sq M.predicted among non-blacks MDRD (S/P/Bld) [Vol rate/Area] 96 mL/min/{1.73_m2} Normal >60 [facility] Comment on above: Result Comment: mL/m in/1.73m2 CKD-EPI Creatinine Equation (2020) Performed By: #### L 500.4050, L100.0100, M200.1000, L503.6005 #### [facility] [address] [place], [address] Globulin (S) [Mass/Vol] 3.3 g/dL Normal 2.2-4.2 [facility] Comment on above: Performed By: #### L 500.4050, L100.0100, M200.1000, L503.6005 #### [facility] [address] [place], [address] Glucose [Mass/Vol] 78 mg/dL Normal 70-99 [facility] Comment on above: Performed By: #### L 500.4050, L100.0100, M200.1000, L503.6005 #### [facility] [address] [place], [address] Potassium [Moles/Vol] 3.9 mmol/L Normal 3.3-5.1 [facility] Comment on above: Performed By: #### L 500.4050, L100.0100, M200.1000, L503.6005 #### [facility] [address] [place], [address] Sodium [Moles/Vol] 133 mmol/L Normal 133-145 [facility] Comment on above: Performed By: #### L 500.4050, L100.0100, M200.1000, L503.6005 #### [facility] [address] [place], [address] T PROT 6.8 g/dL Normal 5.9-8.4 [facility] Comment on above: Performed By: #### L 500.4050, L100.0100, M200.1000, L503.6005 #### [facility] [address] [place], [address] Urea nitrogen [Mass/Vol] 10 mg/dL Normal 4-19 [facility] Comment on above: Performed By: #### L 500.4050, L100.0100, M200.1000, L503.6005 #### [facility] [address] [place], [address] Emergency Department Summary on 09-24-2024 Emergency Department Summary [facility] Medical Records Department [address] [place] [address] Emergency Department Summary 09/24/24 MR#: [id number] Acct: [id number] Name: MARIMAR WANG Rep #: [id number] : 1960 64 From: Pawel Cason MD PCP: Julio Arriaga NP-C Status:DEP ER Location: ED HPI History of [...] Prior similar symptoms: Yes Recent Illness/Hospitalization: Yes [facility] Medical History Squamous cell [...] QHS MENTAL HEALTH 6 09/01/24 History peg 583-vbyhjlirgunw-zqawzgn n 1 1 drp OP 4X/DAY DRY [...] Constipation Unknown History gram/dose oral powder (Miralax) pivpgq-yaooztqe-mkaobng See Rx Instructions PO .COMPLEX 09/01/24 Rx 36,000-114,000-180,000 unit #300 caps capsule,delay rel (Creon) acetaminophen 500 mg tablet 1,000 mg PO Q6H PRN fever or pain 11/15/23 09/01/24 History atorvastatin 80 mg tablet 80 mg PO QHS 11/15/23 09/01/24 His tory hydrocortisone 2. (more content not included)... Normal [facility] Eosinophil percentageOrdered By: Pawel Cason on 09-24-2024 Eosinophils/100 WBC (Bld) 1.9 % 0-5 [facility] Erythrocyte distribution wid th ratioOrdered By: Pawel Cason on 09-24-2024 Erythrocyte distribution width (RBC) [Ratio] 16.3 % High 11.6-14.6 [facility] Erythrocyte distribution wid th standard deviationOrdered By: Pawel Cason on 09-24-2024 Erythrocyte distribution width (RBC) [Entitic vol] 49.1 fL High 35.1-43.9 [facility] Erythrocyte distribution width (RBC) [Ratio] 49.1 fl High 35.1-43.9 [facility] Estimation of creatinine olga aranceOrdered By: Pawel Cason on 09-24-2024 Estimated Creatinine Clearance Calc 72.55 ml/min [facility] GFR/1.73 sq M.predicted brunilda g non-blacks MDRD (S/P/Bld) [Vol rate/Area]Ordered By: Pawel Cason on 09-24-2024 Estimated GFR (MDRD) Non-Af Amer 96 >60 [facility] Comment on above: mL/min/1.73m2 CKD-EP I Creatinine Equation (2020) Glomerular filtration rate ( GFR) estimation/1.73 sq m using serum, plasma, or whole bOrdered By: Pawel Cason on 09-24-2024 GFR/1.73 sq M.predicted among non-blacks MDRD (S/P/Bld) [Vol rate/Area] 96 mL/min/{1.73_m2} >60 [facility] Comment on above: mL/min/1.73m2 CKD-EP I Creatinine Equation (2020) Hematocrit Auto (Bld) [Volum e fraction]Ordered By: Pawel Cason on 09-24-2024 Hematocrit (Bld) [Volume fraction] 34.4 % Low 37-47 [facility] Hemoglobin measurementOrdere d By: Pawel Cason on 09-24-2024 Hemoglobin (Bld) [Mass/Vol] 10.7 g/dL Low 12.0-15.0 [facility] Immature granulocytes/100 WB C Auto (Bld)Ordered By: Pawelladonna Cason on 09-24-2024 Immature granulocytes/100 WBC (Bld) 1.000 % High 0.0-0.9 [facility] Comment on above: IG% - Immature Granu locytes (promyelocytes, myelocytes and metamyelocytes) > 1% indicates that a LEFT SHIFT is Present. Laboratory - Chemistry and C hemistry - challengeOrdered By: Pawelladonna Cason on 09-24-2024 AST [Catalytic activity/Vol] 20 U/L <32 [facility] Lactic acid measurementOrder ed By: Pawel Cason on 09-24-2024 Lactate [Moles/Vol] mmol/L Normal 0.0-2.0 [facility] Comment on above: Order Comment: Y Performed By: #### L 500.4050, L100.0100, M200.1000, L503.6005 #### [facility] Laboratory [address] [place], [address] Lymphocytes Auto (Unsp spec) [#/Vol]Ordered By: Maria Parham [facility] on 09-24-2024 Lymphocytes (Bld) [#/Vol] 1.59 10*3/uL 0.83-4.51 [facility] Lymphocytes/100 WBC Auto (Un sp spec)Ordered By: Pawelladonna Cason on 09-24-2024 Lymphocytes/100 WBC (Bld) 15.7 % Low 19-41 [facility] MCV (mean corpuscular volume ) determinationOrdered By: Pawelladonna Cason on 09-24-2024 MCV (RBC) [Entitic vol] 83.1 fL 81-99 [facility] Mean corpuscular hemoglobin (MCH) determinationOrdered By: Pawel Cason on 09-24-2024 MCH (RBC) [Entitic mass] 25.8 pg Low 27.0-32.0 [facility] Mean corpuscular hemoglobin concentration (MCHC) determinationOrdered By: Pawel Cason on 09-24-2024 MCHC (RBC) [Mass/Vol] 31.1 g/dL Low 32-36 [facility] Mean platelet volume determi nationOrdered By: Pawelladonna Cason on 09-24-2024 Platelet mean volume (Bld) [Entitic vol] 11.3 fL 6.2-12.0 [facility] Monocyte percentageOrdered B y: Pawel Cason on 09-24-2024 Monocytes/100 WBC (Bld) 11.2 % High 0-10 [facility] Neutrophil percentageOrdered By: Pawelladonna Greeno on 09-24-2024 Neutrophils/100 WBC (Bld) 69.1 % 47-70 [facility] Nucleated red blood cell per centageOrdered By: Pawelladonna Cason on 09-24-2024 Nucleated RBC/100 WBC (Bld) [Ratio] 0 % 0-5 [facility] Pelvis WITH IV Contraston Pelvis WITH IV Contrast [facility] Imaging Services [address] [place] [address] Pelvis WITH IV Contrast MR#: [id number] Acct: [id number] Name: MARIMAR WANG Rep #: [id number] : 1960 F 64 From: Jaiden Mariee MD PCP: Julio Arriaga, REGINA-C Status: REG ER Study: Pelvis WITH IV Contrast Date of Exam: 09/24/24 Exam# [id number] Ordering Dr: Pawel Cason MD PROCEDURE: PELVIS WITH IV CONTRAST REASON FOR EXAM: Perirectal pain, fullness, concern for recurrent abscess COMPARISON: September 02, 2024 TECHNIQUE: CT of the pelvis with contrast with coronal and sagittal reformatted images CONTRAST: 96 cc Isovue 370 FINDINGS: [place] artifact from left hip replacement. Right posterior [...] use of iterative reconstruction technique). Reading Location: [facility] CC: SINAI Arriaga; Dr. 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: Signed Normal [facility] Platelet countOrdered By: Akiko Casno on 09-24-2024 Platelets (Bld) [#/Vol] 258 10*3/uL 150-450 [facility] RBC Auto (Bld) [#/Vol]Ordere d By: Pawel Cason on 09-24-2024 RBC (Bld) [#/Vol] 4.14 10*6/uL Low 4.2-5.4 [facility] Serum creatinine measurement (mass/volume)Ordered By: Pawel Cason on 09-24-2024 Creatinine [Mass/Vol] 0.69 mg/dL Low 0.70-1.20 [facility] Serum globulin measurementOr dered By: Pawel Cason on 09-24-2024 Globulin (S) [Mass/Vol] 3.3 g/dL 2.2-4.2 [facility] Serum glucose measurement (m ass/volume)Ordered By: Pawel Cason on 09-24-2024 Glucose [Mass/Vol] 78 mg/dL 70-99 [facility] Serum or plasma alanine alarcon otransferase (ALT) measurementOrdered By: Pawel Cason on 09-24-2024 ALT [Catalytic activity/Vol] 10 U/L <35 [facility] Serum or plasma albumin alexis urement (mass/volume)Ordered By: Pawel Cason on 09-24-2024 Albumin [Mass/Vol] 3.5 g/dL 3.4-4.8 [facility] Serum or plasma albumin/glob ulin mass ratioOrdered By: Pawelladonna Cason on 09-24-2024 Albumin/Globulin [Mass ratio] 1.0 {ratio} 0.9-2.4 [facility] Serum or plasma alkaline [place] sphatase measurementOrdered By: Pawel Cason on 09-24-2024 ALP [Catalytic activity/Vol] 97 U/L 35-104 [facility] Serum or plasma anion gap de termination (moles/volume)Ordered By: Pawel Cason on 09-24-2024 Anion gap [Moles/Vol] 11 mmol/L 5-15 [facility] Serum or plasma calcium alexis urement (mass/volume)Ordered By: Pawel Cason on 09-24-2024 Calcium [Mass/Vol] 8.7 mg/dL 7.6-11.0 [facility] Serum or plasma potassium me asurementOrdered By: Pawel Cason on 09-24-2024 Potassium [Moles/Vol] 3.9 mmol/L 3.3-5.1 [facility] Serum or plasma sodium measu rement (moles/volume)Ordered By: Pawel Cason on 09-24-2024 Sodium [Moles/Vol] 133 mmol/L 133-145 [facility] Serum or plasma urea nitroge n measurement (mass/volume)Ordered By: Pawel Cason on 09-24-2024 Urea nitrogen [Mass/Vol] 10 mg/dL 4-19 [facility] Total proteinOrdered By: Pawel Cason on 09-24-2024 Protein [Mass/Vol] 6.8 g/dL 5.9-8.4 [facility] UA DIP, URINE (POC)on 2024 BILIRUBIN UA (POCT) Negative Negative [facility] CLARITY UA (POCT) Clear [facility] COLOR UA (POCT) Yellow [facility] GLUCOSE UA (POCT) Negative Negative mg/dL [facility] Hemoglobin Ql (U) Negative Negative [facility] Interpretation and review of laboratory results Abnormal [facility] KETONE UA (POCT) Negative Negative mg/dL [facility] LEUKOCYTES UA (POCT) Small Abnormal [facility]IT[facility] ([facility]) Negative Negative [facility] PH UA (POCT) 5.5 4.5 - 8.0 [facility] Protein Ql (U) Negative Negative mg/dL [facility] SPECIFIC GRAVITY UA (POCT) 1.01 1.005 - 1.030 [facility] UROBILINOGEN UA (POCT) 1 Mary Ellen l E.U./dL [facility] Location:[facility], [address] [place] [address], [place], [place], [id number] [place] [address] POINT OF CARE [facility] White blood cell (WBC) count Ordered By: Pawel Cason on 09-24-2024 WBC (Bld) [#/Vol] 10.1 10*3/uL 4.4-11.0 [facility] CT CHEST W IVCONon CT CHEST W IVCON Normal [facility] CT Chest W contrast Nubia IMPRESSION: 1. No CT evidence of metastatic disease to the chest. 2. Sequela of prior granulomatous exposure. 3. Mild pulmonary fibrosis. Pumping Plant Operator[facility] Transcribe Date/Time: Sep 23 2024 4:37P Dictated by : BIBI MEJIA MD This examination was interpreted and the report reviewed and electronically signed by: BIBI MEJIA MD on Sep 23 2024 4:44PM [facility] DIVISION OF RADIOLOGY * * *Final Report* * * DATE OF EXAM: Sep 23 2024 4:19PM [facility] 0539 - CT CHEST W IVCON / [...] Left hip arthroplasty. DIVISION OF RADIOLOGY Provider, [facility] - 09/23/2024 * * *Final Report* * * DATE OF EXAM: Sep 23 2024 4:19PM [facility] 0539 - CT CHEST W IVCON / [...] prior granulomatous exposure. 3. Mild pulmonary fibrosis. Pumping Plant Operator: SABINO Transcribe Date/Time: Sep 23 2024 4:37P Dictated by : BIBI MEJIA MD This examination was interpreted and the report reviewed and electronically signed by: BIBI MEJIA MD on Sep 23 2024 4:44PM [facility] Radiology Study observation (narrative) [facility] CT Chest W contrast IVOrdere d By: [facility] Provider on 09-23-2024 [facility] MRI PELVIS WO/W IVCONon 08-30 MRI PELVIS WO/W IVCON Normal [facility] CNPNon 09-22-2024 CNPN Normal [facility] CNPNon 09-18-2024 CNPN Normal [facility] CNOVon 09-17-2024 CNOV Normal [facility] CBC W Auto Differential pane l (Bld)on 09-16-2024 Basophils (Bld) [#/Vol] 0.12 10*3/uL High [facility] Basophils/100 WBC (Bld) 1.2 % [facility] Differential cell count method Nom (Bld) Auto [facility] Eosinophils (Bld) [#/Vol] 0.09 10*3/uL [facility] Eosinophils/100 WBC (Bld) 0.9 % [facility] Erythrocyte distribution width (RBC) [Ratio] 17.1 % High 11.5 - 15.0 % [facility] Hematocrit (Bld) [Volume fraction] 38.8 % 36.0 - 46.0 % [facility] Hemoglobin (Bld) [Mass/Vol] 12 g/dL 11.5 - 15.5 g/dL [facility] Immature granulocytes (Bld) [#/Vol] 0.03 10*3/uL [facility] Immature granulocytes/100 WBC (Bld) 0.3 % [facility] Interpretation and review of laboratory results Abnormal [facility] Lymphocytes (Bld) [#/Vol] 1.13 10*3/uL [facility] Lymphocytes/100 WBC (Bld) 11.5 % [facility] MCH (RBC) [Entitic mass] 25.9 pg Low 26.0 - 34.0 pg [facility] MCHC (RBC) [Mass/Vol] 30.9 g/dL 30.5 - 36.0 g/dL [facility] MCV (RBC) [Entitic vol] 83.8 fL 80.0 - 100.0 fL [facility] Monocytes (Bld) [#/Vol] 0.82 10*3/uL [facility] Monocytes/100 WBC (Bld) 8.3 % [facility] Neutrophils (Bld) [#/Vol] 7.64 10*3/uL High [facility] Neutrophils/100 WBC (Bld) 77.8 % [facility] Nucleated RBC (Bld) [#/Vol] [facility] Nucleated RBC/100 WBC (Bld) [Ratio] 0 % /100 WBC [facility] Platelet mean volume (Bld) [Entitic vol] 10.9 fL 9.0 - 12.7 fL [facility] Platelets (Bld) [#/Vol] 275 10*3/uL [facility] RBC (Bld) [#/Vol] 4.63 10*6/uL 3.90 - 5.2 0 m/uL [facility] WBC (Bld) [#/Vol] 9.83 10*3/uL [facility] Basophils (Bld) [#/Vol] 0.12 10*3/uL High <0.11 [facility] Comment on above: Order Comment: Speci men Type: BLOOD SPECIMENOrdering Facility: [facility] Address: [address] [place], [place] [id number] Performed By: #### 5 7021-8 ####[facility] MILLCLIFFWNCLIA [id number] [place] [address] [place] Basophils/100 WBC (Bld) 1.2 % Normal [facility] Comment on above: Order Comment: Speci men Type: BLOOD SPECIMENOrdering Facility: [facility] Address: [address] [place] [address] Performed By: #### 5 7021-8 ####[facility] ALYSSAWZEVLIA [id number] [place] [address] [place] Differential cell count method Nom (Bld) Auto Normal [facility] Comment on above: Order Comment: Speci men Type: BLOOD SPECIMENOrdering Facility: [facility] Address: [address] [place] [address] Performed By: #### 5 7021-8 ####[facility] HOSPITALZEVA [id number] [place] [address] [place] Eosinophils (Bld) [#/Vol] 0.09 10*3/uL Normal <0.46 [facility] Comment on above: Order Comment: Speci men Type: BLOOD SPECIMENOrdering Facility: [facility] Address: [address] [place] [address] Performed By: #### 5 7021-8 ####[facility] HOS[facility]ITALHAMLETA [id number] [place] [address] [place] Eosinophils/100 WBC (Bld) 0.9 % Normal [facility] Comment on above: Order Comment: Speci men Type: BLOOD SPECIMENOrdering Facility: [facility] Address: [address] [place] [address] Performed By: #### 5 7021-8 ####[facility] CENTERLIA [id number] [place] [address] [place] Erythrocyte distribution width (RBC) [Ratio] 17.1 % High 11.5-15.0 [facility] Comment on above: Order Comment: Speci men Type: BLOOD SPECIMENOrdering Facility: [facility] Address: [address] [place] [address] Performed By: #### 5 7021-8 ####[facility]ITALNCTOOELE [facility] [id number] [place] [address] [place] Hematocrit (Bld) [Volume fraction] 38.8 % Normal 36.0-46.0 [facility] Comment on above: Order Comment: Speci men Type: BLOOD SPECIMENOrdering Facility: [facility] Address: [address] [place] [address] Performed By: #### 5 7021-8 ####[facility]ITALNCTOO[facility] [id number] [place] [address] [place] Hemoglobin (Bld) [Mass/Vol] 12.0 g/dL Normal 11.5-15.5 [facility] Comment on above: Order Comment: Speci men Type: BLOOD SPECIMENOrdering Facility: [facility] Address: [address] [place] [address] Performed By: #### 5 7021-8 ####[facility]ITALA [id number] [place] [address] [place] Immature granulocytes (Bld) [#/Vol] 0.03 10*3/uL Normal <0.10 [facility] Comment on above: Order Comment: Speci men Type: BLOOD SPECIMENOrdering Facility: [facility] Address: [address] [place] [address] Performed By: #### 5 7021-8 ####[facility] HOSPITALNCLIA [id number] [place] [address] [place] Immature granulocytes/100 WBC (Bld) 0.3 % Normal [facility] Comment on above: Order Comment: Speci men Type: BLOOD SPECIMENOrdering Facility: [facility] Address: [address] [place] [address] Performed By: #### 5 7021-8 ####[facility] MILLWNCLIA [id number] [place] [address] [place] Lymphocytes (Bld) [#/Vol] 1.13 10*3/uL Normal 1.00-4.00 [facility] Comment on above: Order Comment: Speci men Type: BLOOD SPECIMENOrdering Facility: [facility] Address: [address] [place] [address] Performed By: #### 5 7021-8 ####[facility] HOSPITALNCLIA [id number] [place] [address] [place] Lymphocytes/100 WBC (Bld) 11.5 % Normal [facility] Comment on above: Order Comment: Speci men Type: BLOOD SPECIMENOrdering Facility: [facility] Address: [address] [place] [address] Performed By: #### 5 7021-8 ####[facility] HOSPITALNCLIA [id number] [place] [address] [place] MCH (RBC) [Entitic mass] 25.9 pg Low 26.0-34.0 [facility] Comment on above: Order Comment: Speci men Type: BLOOD SPECIMENOrdering Facility: [facility] Address: [address] [place] [address] Performed By: #### 5 7021-8 ####[facility] HOSPITALNCLIA [id number] [place] [address] [place] MCHC (RBC) [Mass/Vol] 30.9 g/dL Normal 30.5-36.0 [facility] Comment on above: Order Comment: Speci men Type: BLOOD SPECIMENOrdering Facility: [facility] Address: [address] [place] [address] Performed By: #### 5 7021-8 ####[facility] CENTERLIA [id number] [place] [address] [place] MCV (RBC) [Entitic vol] 83.8 fL Normal 80.0-100.0 [facility] Comment on above: Order Comment: Speci men Type: BLOOD SPECIMENOrdering Facility: [facility] Address: [address] [place] [address] Performed By: #### 5 7021-8 ####[facility] [id number] [place] [address] [place] Monocytes (Bld) [#/Vol] 0.82 10*3/uL Normal <0.87 [facility] Comment on above: Order Comment: Speci men Type: BLOOD SPECIMENOrdering Facility: [facility] Address: [address] [place] [address] Performed By: #### 5 7021-8 ####[facility] [id number] [place] [address] [place] Monocytes/100 WBC (Bld) 8.3 % Normal [facility] Comment on above: Order Comment: Speci men Type: BLOOD SPECIMENOrdering Facility: [facility] Address: [address] [place] [address] Performed By: #### 5 7021-8 ####[facility] [id number] [place] [address] [place] Neutrophils (Bld) [#/Vol] 7.64 10*3/uL High 1.45-7.50 [facility] Comment on above: Order Comment: Speci men Type: BLOOD SPECIMENOrdering Facility: [facility] Address: [address] [place] [address] Performed By: #### 5 7021-8 ####[facility] [id number] [place] [address] [place] Neutrophils/100 WBC (Bld) 77.8 % Normal [facility] Comment on above: Order Comment: Speci men Type: BLOOD SPECIMENOrdering Facility: [facility] Address: [address] [place] [address] Performed By: #### 5 7021-8 ####[facility] [id number] [place] [address] [place] Nucleated RBC (Bld) [#/Vol] 10*3/uL Normal <0.01 [facility] Comment on above: Order Comment: Speci men Type: BLOOD SPECIMENOrdering Facility: [facility] Address: [address] [place] [address] Performed By: #### 5 7021-8 ####[facility]ITALNCTOOELE [facility] [id number] [place] [address] [place] Nucleated RBC/100 WBC (Bld) [Ratio] 0.0 /100 WBC Normal [facility] Comment on above: Order Comment: Speci men Type: BLOOD SPECIMENOrdering Facility: [facility] Address: [address] [place] [address] Performed By: #### 5 7021-8 ####[facility] [id number] [place] [address] [place] Platelet mean volume (Bld) [Entitic vol] 10.9 fL Normal 9.0-12.7 [facility] Comment on above: Order Comment: Speci men Type: BLOOD SPECIMENOrdering Facility: [facility] Address: [address] [place] [address] Performed By: #### 5 7021-8 ####[facility] [id number] [place] [address] [place] Platelets (Bld) [#/Vol] 275 10*3/uL Normal 150-400 [facility] Comment on above: Order Comment: Speci men Type: BLOOD SPECIMENOrdering Facility: [facility] Address: [address] [place] [address] Performed By: #### 5 7021-8 ####[facility] ALYSSAPHOENIXNCLIA [id number] [place] [address] [place] RBC (Bld) [#/Vol] 4.63 10*6/uL Normal 3.90-5.20 [facility] Comment on above: Order Comment: Speci men Type: BLOOD SPECIMENOrdering Facility: [facility] Address: [address] [place] [address] Performed By: #### 5 7021-8 ####[facility] HOSPITALNCLIA [id number] [place] [address] [place] WBC (Bld) [#/Vol] 9.83 10*3/uL Normal 3.70-11.00 [facility] Comment on above: Order Comment: Speci men Type: BLOOD SPECIMENOrdering Facility: [facility] Address: [address] [place] [address] Performed By: #### 5 7021-8 ####[facility] HOSPITALNCLIA [id number] [place] [address] [place] CNPNon 09-16-2024 CNPN Normal [facility] metabolic 2000 panelOrdered By: Frannie Puente on 09-16-2024 Albumin [Mass/Vol] 3.9 g/dL 3.9 - 4.9 g/dL [facility] ALP [Catalytic activity/Vol] 104 U/L 34 - 123 U/L [facility] ALT [Catalytic activity/Vol] 10 U/L 7 - 38 U/L [facility] Anion gap [Moles/Vol] 10 mmol/L 8 - 15 mmol/L [facility] AST [Catalytic activity/Vol] 19 U/L 13 - 35 U/L [facility] Bilirubin [Mass/Vol] 0.3 mg/dL 0.2 - 1 .3 mg/dL [facility] Calcium [Mass/Vol] 9.4 mg/dL 8.5 - 10. 2 mg/dL [facility] Chloride [Moles/Vol] 102 mmol/L 98 - 10 7 mmol/L [facility] CO2 [Moles/Vol] 22 mmol/L 22 - 30 mmol/L [facility] Creatinine [Mass/Vol] 0.7 mg/dL 0.58 - 0.96 mg/dL [facility] GFR/1.73 sq M.predicted among non-blacks MDRD (S/P/Bld) [Vol rate/Area] 96 mL/min/{1.73_m2} - PINF [facility] Comment on above: Estimated Glomerular Filtration [...] [Mass/Vol] 94 mg/dL 74 - 99 mg/dL [facility] Comment on above: The [place] [employer] (ADA) provides guidance for [...] Standards of Medical Care in Diabetes 2016, [place] [employer]. Diabetes Care. 2016.39(Suppl 1). Interpretation and review of laboratory results Abnormal [facility] Potassium [Moles/Vol] 3.8 mmol/L 3.7 - 5.1 mmol/L [facility] Protein [Mass/Vol] 7.4 g/dL 6.3 - 8.0 g/dL [facility] Sodium [Moles/Vol] 134 mmol/L Low 136 - 144 mmol/L [facility] Urea nitrogen [Mass/Vol] 14 mg/dL 7 - 21 mg/dL [facility] metabolic 2000 panelon 09-16-2024 Albumin [Mass/Vol] 3.9 g/dL Normal 3.9-4.9 [facility] Comment on above: Order Comment: Speci men Type: BLOOD SPECIMENOrdering Facility: [facility] Address: [address] [place] [address] Performed By: #### 2 4323-8 ####[facility] FLORIDAWNCLIA [id number] [place] [address] [place] ALP [Catalytic activity/Vol] 104 U/L Normal 34-123 [facility] Comment on above: Order Comment: Speci men Type: BLOOD SPECIMENOrdering Facility: [facility] Address: [address] [place] [address] Performed By: #### 2 4323-8 ####[facility] FLORIDAWNCLIA [id number] [place] [address] [place] ALT [Catalytic activity/Vol] 10 U/L Normal 7-38 [facility] Comment on above: Order Comment: Speci men Type: BLOOD SPECIMENOrdering Facility: [facility] Address: [address] [place] [address] Performed By: #### 2 4323-8 ####[facility] CENTERLIA [id number] [place] [address] [place] Anion gap [Moles/Vol] 10 mmol/L Normal 8-15 [facility] Comment on above: Order Comment: Speci men Type: BLOOD SPECIMENOrdering Facility: [facility] Address: [address] [place] [address] Performed By: #### 2 4323-8 ####[facility] MILLWNCLIA [id number] [place] [address] [place] AST [Catalytic activity/Vol] 19 U/L Normal 13-35 [facility] Comment on above: Order Comment: Speci men Type: BLOOD SPECIMENOrdering Facility: [facility] Address: [address] [place] [address] Performed By: #### 2 4323-8 ####[facility] RIGOBERTO MILLTOWNCLIA [id number] [place] [address] [place] Bilirubin [Mass/Vol] 0.3 mg/dL Normal 0.2-1.3 [facility] Comment on above: Order Comment: Speci men Type: BLOOD SPECIMENOrdering Facility: [facility] Address: [address] [place] [address] Performed By: #### 2 4323-8 ####[facility] FLORIDAWNCLIA [id number] [place] [address] [place] Calcium [Mass/Vol] 9.4 mg/dL Normal 8.5-10.2 [facility] Comment on above: Order Comment: Speci men Type: BLOOD SPECIMENOrdering Facility: [facility] Address: [address] [place] [address] Performed By: #### 2 4323-8 ####[facility] HOS[facility]ITALNCLIA [id number] [place] [address] [place] Chloride [Moles/Vol] 102 mmol/L Normal 98-107 [facility] Comment on above: Order Comment: Speci men Type: BLOOD SPECIMENOrdering Facility: [facility] Address: [address] [place] [address] Performed By: #### 2 4323-8 ####[facility] MILLTOWNCLIA [id number] [place] [address] [place] CO2 [Moles/Vol] 22 mmol/L Normal 22-30 [facility] Comment on above: Order Comment: Speci men Type: BLOOD SPECIMENOrdering Facility: [facility] Address: [address] [place] [address] Performed By: #### 2 4323-8 ####[facility] FLORIDAWNCLIA [id number] [place] [address] [place] Creatinine [Mass/Vol] 0.70 mg/dL Normal 0.58-0.96 [facility] Comment on above: Order Comment: Minyd mcfarlane Type: BLOOD SPECIMENOrdering Facility: [facility] Address: [address] [place] [address] Performed By: #### 2 4323-8 ####[facility] [id number] [place] [address] [place] Creatinine and Glomerular filtration rate.predicted panel (S/P/Bld) 96 mL/min/1.73m??? Normal >=60 [facility] Comment on above: Order Comment: Mindy mcfarlane Type: BLOOD SPECIMENOrdering Facility: [facility] Address: [address] [place] [address] Result Comment: Sonia mated Glomerular Filtration Rate [...] actual GFR. Performed By: #### 2 4323-8 ####[facility] [id number] [place] [address] [place] Glucose [Mass/Vol] 94 mg/dL Normal 74-99 [facility] Comment on above: Order Comment: Mindy mcfarlane Type: BLOOD SPECIMENOrdering Facility: [facility] Address: [address] [place] [address] Result Comment: The [place] Diabetes Association (ADA) provides guidance for cutoff [...] Standards of Medical Care in Diabetes 2016, [place] [employer] Association. Diabetes Care. 2016.39(Suppl 1). Performed By: #### 2 4323-8 ####[facility] RIGOBERTO SHAHMICK [id number] [place] [address] [place] Potassium [Moles/Vol] 3.8 mmol/L Normal 3.7-5.1 [facility] Comment on above: Order Comment: Speci men Type: BLOOD SPECIMENOrdering Facility: [facility] Address: [address] [place], [place] [address] Performed By: #### 2 4323-8 ####[facility] HOSPITALNICOLE [id number] [place] [address] [place] Protein [Mass/Vol] 7.4 g/dL Normal 6.3-8.0 [facility] Comment on above: Order Comment: Speci men Type: BLOOD SPECIMENOrdering Facility: [facility] Address: [address] [place], [place] [address] Performed By: #### 2 4323-8 ####[facility] HOSPITALNICOLE [id number] [place] [address] [place] Sodium [Moles/Vol] 134 mmol/L Low 136-144 [facility] Comment on above: Order Comment: Speci men Type: BLOOD SPECIMENOrdering Facility: [facility] Address: [address] [place] [address] Performed By: #### 2 4323-8 ####[facility] HOSPITALNCBLAKE [id number] [place] [address] [place] Urea nitrogen [Mass/Vol] 14 mg/dL Normal 7-21 [facility] Comment on above: Order Comment: Speci men Type: BLOOD SPECIMENOrdering Facility: [facility] Address: [address] [place] [address] Performed By: #### 2 4323-8 ####[facility] RIGOBERTO SHAHPHOENIXNICOLE [id number] [place] [address] [place] DPYD/UGT1A1 GENOTYPING PANEL on 09-16-2024 DPYD/UGT1A1 GENOTYPING PANEL RESULT Normal [facility] Comment on above: Order Comment: Speci men Type: BLOOD SPECIMENOrdering Facility: [facility] Address: [facility] [place] [address] Result Comment: [facility] (PGx) DPYD and UGT1A1 GenotypingLaboratory Accession Number: [id number] Genotype: *1/*1DPYD Activity Score: 2DPYD Predicted Phenotype: DPYD Normal AdqggjdnxszOXE7A8 Genotype: *1/*7XRF2K8 Predicted Phenotype: UGT1A1 Normal MetabolizerInterpretation:Two normal function [...] increased function UGT1A1 allele or two increased snflmauiDBF3A1 alleles were observed in this sample (see [...] involved in the metabolism of fluoropyrimidines. The FQO1T3vzja encodes UDP-glucuronosyltransferase (UGT). UGT is involved in [...] an autosomalrecessive inborn error of metabolism (OMIM: 047670). DPD deficiencyexhibits a wide range of phenotypic [...] list below) in the DPYD gene (OMIM 890203) tqtHJO2D0 gene (OMIM 439086). This test does not detect all sequencevariants [...] orabsence of the following variants, RefSNP ID: [id number], [id number] (TA repeats), and [id number].DPYD star alleles and targeted variants:RefSNP ID Legacy Total Allele Highest Allele Name Frequency Frequency General Population (Population)No variantdetected *[id number] *2A 0.6% 2.4% (Eur F)[id number] *8 0.01% 0.03% (S )bp1131612 *10 n/iee12686214 *12 0.0008% 0.003% (S )[id number] *13 0.03% 0.06% (Eur F)[id number] Y186C 0.2% 2.15% ()[id number] c.2846A>T 0.3% 0.5% (Eur NF)[id number] HapB3 1.4% 2.1 % (Eur NF)[id number] HapB3(c.1236G>A) 1.4% 2.1% (Eur NF)Population frequencies are from gnomAD and may be different inspecific ethnic groups. The allele frequency shown is the total allelefrequency in all populations. The highest allele frequency for asingle population is also noted (Eur F = Micronesian, Eur NF = non-Micronesian, S = South ). Note: [id number] (HapB3)and [id number] (c.1236G>A) are in linkage disequilibrium thus aretypically seen together.References:1) Clinical Pharmacogenetics Implementation Consortium (CPIC):www.CPICpgx.org2) Pharmacogene Variation Consortium (PharmVar): www.PharmVar.org3) Genome Aggregation Database V2.1.1 (gnomAD), accessed July2021, https://gnomad.[facility].org4) Yumiko M, Adrián EM, Kings JM, et al. PharmacogenomicsKnowledge for Personalized Medicine Clinical Pharmacology andTherapeutics (2012) 92(4): 414-417.5) Sky U, Jerilyn LM, Rosita SM, et al. Clinical PharmacogeneticsImplementation Consortium (CPIC) Guideline for DihydropyrimidineDehydrogenase Genotype and Fluoropyrimidine Dosin Update. ClinPharmacol Ther. 2018;103(2):210-216.6) Hoffmeister Leuchten, [employer] of Medicine 2020. Dihydropyrimidinedehydrogenase deficiency, accessed 14 February 2021,https://medlineplus.gov/genetics/condition/dihydropyrimid qdb-sdpflmzidnjlp-crkyilhmxv/#resources7) Meredith N, Nicol MATHEW, Vicky RCM, van shilpi ABP. Purine andPyrimidine Metabolism: Pyrimidine Metabolism: DihydropyrimidineDehydrogenase. Frank's Principles and Practice of MedicalGenetics and Genomics: Metabolic Disorders, Seventh Edition. Edited byDelfina Rodriguez al, Elsevier. 2020. Sections 6.3.4 - 6.3.4.4https://tcl-netibpkmken-cwt.ccmain.[facility].org/#!/freeman nt/book/3-s2.0-X2608975508514453523?scrollTo=%56bm22258174) Violette RS, Maggi MH, Nasreen CE, et al. Clinical PharmacogeneticsImplementation Consortium (CPIC) Guideline for UGT1A1 and AtazanavirPrescribing. Clinical Pharmacology and Therapeutics (2016) Apr;99(4):363-9.9) King Karol, Viky TRINIDAD. Overview of Glibert's syndrome. Drug TherBull. 2019 b 57(2):27-30.10) [facility] 2020, Gilbert Syndrome, accessed 14 February 2021,https://my.[facility].org/health/diseases/97644-iobs erts-syndromeDisclaimer:This test was developed and its performance characteristics determinedby [facility]'s Pathology and Laboratory Medicine Department. Ithas not been cleared or approved by the FDA. [facility] is regulated under CLIAas certified to perform high-complexity testing. This test is used forclinical purposes. It should not be regarded as investigational or forresearch.Testing and interpretation performed at [facility], [address] [place] [address]. CLIA Number: [id number] reviewed by Keri Yancey MD Performed By: #### D UPNL1 ####[facility] LIMSCLIA [id number] [place] [address] [place] HBV core Ab Ser Qlon 025 HBV core Ab Ql (S) Negative Normal Negative [facility] Comment on above: Order Comment: Speci men Type: BLOOD SPECIMENOrdering Facility: [facility] Address: [address] [place] [address] Result Comment: No e vidence of current or past infection with Hepatitis B virus. Should recent infection be suspected, repeat testing may be considered 3-4 weeks after this draw. Performed By: #### 2 2322-2, 57264-0, 5195-3, 43487-0 ####[facility] LABCLIA [id number] [place] [address] [place] HBV surface Ab Ql (S)on 08-29 HBV surface Ab Qn (S) <8.00 Normal [facility] Comment on above: Order Comment: Speci men Type: BLOOD SPECIMENOrdering Facility: [facility] Address: [address] [place] [address] Result Comment: <8 m IU/mL: No serological evidence of immunity to Hepatitis B Virus.>/= 8 to <12 mIU/mL: No serological evidence of immunity to Hepatitis B Virus.>/= 12 mIU/mL: Consistent with serological evidence of immunity to Hepatitis B Virus. Performed By: #### 2 2322-2, 53588-1, 5195-3, 91346-3 ####[facility] LABCLIA [id number] [place] [address] [place] HBV surface Ab Ser Qlon 08-29 HBV surface Ab Ql (S) Negative Normal [facility] Comment on above: Order Comment: Speci men Type: BLOOD SPECIMENOrdering Facility: [facility] Address: [address] [place] [address] Result Comment: No s erological evidence of immunity to Hepatitis B Virus. Performed By: #### 2 2322-2, 94017-0, 5195-3, 24385-5 ####[facility] LABCLIA [id number] [place] [address] [place] HBV surface Ag Ser Qlon 08-29 HBV surface Ag Ql (S) Negative Normal Negative [facility] Comment on above: Order Comment: Speci men Type: BLOOD SPECIMENOrdering Facility: [facility] Address: [address] [place] [address] Performed By: #### 2 2322-2, 81914-2, 5195-3, 04812-8 ####[facility] LABCLIA [id number] [place] [address] [place] HCV Ab Ser Qlon 09-16-2024 HCV Ab Ql (S) Negative Normal Negative [facility] Comment on above: Order Comment: Speci men Type: BLOOD SPECIMENOrdering Facility: [facility] Address: [address] [place] [address] Result Comment: The result suggests no evidence of active infection with Hepatitis C virus. Should recent infection be suspected, repeat testing may be considered 4-6 weeks after this draw. Performed By: #### 1 6128-1 ####[facility] LABCLIA [id number] [place] [address] [place] HIV 1+2 Ab IA Qlon 5 HIV 1 and 2 Ab IA.rapid Nom (S/P/Bld) Normal [facility] Comment on above: Order Comment: Speci men Type: BLOOD SPECIMENOrdering Facility: [facility] Address: [address] [place] [address] Result Comment: Test not indicated. Performed By: #### 2 2322-2, 58120-3, 5195-3, 97961-8 ####[facility] LABCLIA [id number] [place] [address] [place] HIV 1+2 Ab+HIV1 p24 Ag IA Ql Non-Reactive Normal Nonreactive [facility] Comment on above: Order Comment: Speci men Type: BLOOD SPECIMENOrdering Facility: [facility] Address: [address] [place] [address] Performed By: #### 2 2322-2, 51720-4, 5-3, 90921-4 ####[facility] LABCLIA [id number] [place] [address] [place] HIV immunoassay testing algorithm interpretation (S/P/Bld) [Interp] Normal [facility] Comment on above: Order Comment: Speci men Type: BLOOD SPECIMENOrdering Facility: [facility] Address: [address] [place] [address] Result Comment: No e vidence of HIV-1 or HIV-2 infection. Should recent infection be suspected, repeat testing may be considered 2-3 weeks after this draw.[place] Rev. Code 3701.243(E): This information has been [...] test results or diagnoses. Performed By: #### 2 2322-2, 14666-6, 5195-3, 72358-5 ####[facility] LABCLIA [id number] [facility] [id number] [address] [place] US LEG VEIN DVT UNL VAS LABo n 09-16-2024 US LEG VEIN DVT UNL VAS LAB Normal [facility] CNOVSPon 09-15-2024 CNOVSP Normal [facility] CNPNon 09-15-2024 CNPN Normal [facility] Surgery Visit Reporton 09-15 Surgery Visit Report [facility] [address] [place] [address] OFFICE VISIT Date of Service: 09/15/24 MR#: [id number] Acct: [id number] Name: MARIMAR WANG Rep #: [id number] : 1960 Provider: Dr. Kenya fuentes MD Age/Sex: 64/F Location: [facility] Status: Signed Intake Vital Signs 09/03/24 14:00 [...] QHS MENTAL HEALTH 6 09/15/24 History peg 643-kkefkskuhvwb-qkgskhi n 1 1 drp OP 4X/DAY DRY [...] Constipation 09/15/24 History gram/dose oral powder (Miralax) zoslnq-akilwsxb-wmoztyz See Rx Instructions PO .COMPLEX 09/15/24 Rx 36,000-114,000-180,000 unit #300 caps capsule,delay rel (Creon) acetaminophen 500 mg tablet 1,000 mg PO Q6H PRN fever or pain 11/15/23 09/15/24 History atorvastatin 80 mg tablet 80 mg PO QHS 11/15/23 09/15/24 His tory hydrocortisone 2.5 % topical cream 1 applic AZ BID PRN Crohn's 10/1909/15/24 Rx with perineal [...] right groin (more content not included)... Normal [facility] Jeremy 09-10-2024 [facility] MARIMAR WANG ([id number]) 1960 F Date Time Provider Department 09/10/24 JENNIFER ARIAS During your visit today, we [...] is established in Rheumatology with Dr. Jennifer rAias. The patient is scheduled to see you [...] Buck LPN Nurse for Dr. Jennifer Arias, User Experience Lead [facility] Sarah Pearson PA-C 09/16/2024 11:56 AM Signed Josh Bennett DO Sharma, Jennifer, MD; Sarah Pearson PA-C Hi Amanda. Rosio [...] stable on just Arava 20 mg daily. Sarah Pearson PA-C Allergies As of Date: 09/10/2024 Noted Allergy [...] Fully Assessed Reason for Visit: Patient Question [2747] Continuity Of Care [906] Cmt: Dr. Josh Bennett, Oncology Prescriptions as [...] 80 mg by mouth once daily. - bdredr-uwfmklwr-zmpdipz (CREON 36) 36,000-114,000- 180,000 unit delayed release [...] mg tab (more content not included)... Normal [facility] CNPNon 09-07-2024 CNPN Normal [facility] Absolute lymphocyte countOrd ered By: Kenya Garcia on 09-03-2024 Lymphocytes Auto (Unsp spec) [#/Vol] 0.97 10*3/uL 0.83-4.51 [facility] Absolute neutrophil countOrd ered By: Kenya Garcia on 09-03-2024 Neutrophils (Bld) [#/Vol] 6.1 10*3/uL 2.0-7.7 [facility] Automated lymphocyte count a s percentage of total leukocytesOrdered By: Kenya Garcia on 09-03-2024 Lymphocytes/100 WBC Auto (Unsp spec) 11.9 % Low 19-41 [facility] Basic Metabolic Profile (BMP )on 09-03-2024 BUN/CRE 16.0 RATIO Normal 10-20 [facility] Comment on above: Performed By: #### L 500.2500, L100.0100 ####[facility] [address] [place], [address] [place],Total 8.2 mg/dL Low 8.5-10.1 [facility] Comment on above: Performed By: #### L 500.2500, L100.0100 ####[facility] [address] [place], [address] Chloride [Moles/Vol] 102 mmol/L Normal 98-107 [facility] Comment on above: Performed By: #### L 500.2500, L100.0100 ####[facility] [address] [place], [address] CO2 [Moles/Vol] 24.0 mmol/L Normal 21.0-32.0 [facility] Comment on above: Performed By: #### L 500.2500, L100.0100 ####[facility] [address] [place], [address] Creatinine [Mass/Vol] 0.50 mg/dL Low 0.55-1.02 [facility] Comment on above: Result Comment: The validity of the calculated GFR GFRAA in patients over 70 years has not been determined. Clinical correlation is essential. Performed By: #### L 500.2500, L100.0100 ####[facility] [address] [place], [address] ECRCL 76.90 ml/min Normal [facility] Comment on above: Performed By: #### L 500.2500, L100.0100 ####[facility] [address] [place], [address] EST GFR - AA 159 mL/min Normal >60 [facility] Comment on above: Result Comment: Afri can Turk[place] GFR Calc Performed By: #### L 500.2500, L100.0100 ####[facility] [address] [place], [address] GAP 7 Normal 5-15 [facility] Comment on above: Performed By: #### L 500.2500, L100.0100 ####[facility] [address] [place], [address] GFR/1.73 sq M.predicted among non-blacks MDRD (S/P/Bld) [Vol rate/Area] 132 mL/min/{1.73_m2} Normal >60 [facility] Comment on above: Result Comment: Non- GFR Calc Performed By: #### L 500.2500, L100.0100 ####[facility] [address] [place], [address] Glucose [Mass/Vol] 92 mg/dL Normal 74-106 [facility] Comment on above: Performed By: #### L 500.2500, L100.0100 ####[facility] [address] [place], [address] Potassium [Moles/Vol] 3.2 mmol/L Low 3.5-5.1 [facility] Comment on above: Performed By: #### L 500.2500, L100.0100 ####[facility] [address] [place], [address] Sodium [Moles/Vol] 133 mmol/L Low 136-145 [facility] Comment on above: Performed By: #### L 500.2500, L100.0100 ####[facility] [address] [place], [address] Urea nitrogen [Mass/Vol] 8 mg/dL Normal 7-18 [facility] Comment on above: Performed By: #### L 500.2500, L100.0100 ####[facility] [address] [place], [address] Basophil percentageOrdered B y: Kenya Garcia on 09-03-2024 Basophils/100 WBC (Bld) 0.7 % 0-1 [facility] Blood urea nitrogen (BUN)/cr eatinine ratioOrdered By: Kenya Garcia on 09-03-2024 Urea nitrogen/Creatinine [Mass ratio] 16.0 mg/mg 10-20 [facility] CBC W/Diff, Automatedon Absolute Lymph 0.97 X10 3/uL Normal 0.83-4.51 [facility] Comment on above: Performed By: #### L 500.2500, L100.0100 ####[facility] [address] [place], [address] Absolute Neut 6.1 X10 3/uL Normal 2.0-7.7 [facility] Comment on above: Performed By: #### L 500.2500, L100.0100 ####[facility] [address] [place], [address] Basophils/100 WBC (Bld) 0.7 % Normal 0-1 [facility] Comment on above: Performed By: #### L 500.2500, L100.0100 ####[facility] [address] [place], [address] Eosinophils/100 WBC (Bld) 0.5 % Normal 0-5 [facility] Comment on above: Performed By: #### L 500.2500, L100.0100 ####[facility] [address] [place], [address] Erythrocyte distribution width (RBC) [Ratio] 17.3 % High 11.6-14.6 [facility] Comment on above: Performed By: #### L 500.2500, L100.0100 ####[facility] [address] [place], [address] Hematocrit (Bld) [Volume fraction] 31.2 % Low 37-47 [facility] Comment on above: Performed By: #### L 500.2500, L100.0100 ####[facility] [address] [place], [address] Hemoglobin (Bld) [Mass/Vol] 9.6 g/dL Low 12.0-15.0 [facility] Comment on above: Performed By: #### L 500.2500, L100.0100 ####[facility] [address] [place], [address] IG% 0.500 Normal 0.0-0.9 [facility] Comment on above: Result Comment: IG% - Immature Granulocytes (promyelocytes, myelocytes and metamyelocytes) > 1% indicates that a LEFT SHIFT is Present. Performed By: #### L 500.2500, L100.0100 ####[facility] [address] [place], [address] Lymphocytes/100 WBC (Bld) 11.9 % Low 19-41 [facility] Comment on above: Performed By: #### L 500.2500, L100.0100 ####[facility] [address] [place], [address] MCH (RBC) [Entitic mass] 25.5 pg Low 27.0-32.0 [facility] Comment on above: Performed By: #### L 500.2500, L100.0100 ####[facility] [address] [place], [address] MCHC (RBC) [Mass/Vol] 30.8 g/dL Low 32-36 [facility] Comment on above: Performed By: #### L 500.2500, L100.0100 ####[facility] [address] [place], [address] MCV (RBC) [Entitic vol] 83.0 fL Normal 81-99 [facility] Comment on above: Performed By: #### L 500.2500, L100.0100 ####[facility] [address] [place], [address] Monocytes/100 WBC (Bld) 11.7 % High 0-10 [facility] [facility] Comment on above: Performed By: #### L 500.2500, L100.0100 ####[facility] [address] [place], [address] Neutrophils/100 WBC (Bld) 74.7 % High 47-70 [facility] Comment on above: Performed By: #### L 500.2500, L100.0100 ####[facility] [address] [place], [address] Nucleated RBC (Bld) [#/Vol] 0 10*3/uL Normal 0-5 [facility] Comment on above: Performed By: #### L 500.2500, L100.0100 ####[facility] [address] [place], [address] Platelet mean volume (Bld) [Entitic vol] 11.4 fL Normal 6.2-12.0 [facility] Comment on above: Performed By: #### L 500.2500, L100.0100 ####[facility] [address] [place], [address] Platelets (Bld) [#/Vol] 219 10*3/uL Normal 150-450 [facility] Comment on above: Performed By: #### L 500.2500, L100.0100 ####[facility] [address] [place], [address] RBC (Bld) [#/Vol] 3.76 10*6/uL Low 4.2-5.4 [facility] Comment on above: Performed By: #### L 500.2500, L100.0100 ####[facility] [address] [place], [address] RDW SD 52.7 fl High 35.1-43.9 [facility] Comment on above: Performed By: #### L 500.2500, L100.0100 ####[facility] [address] [place], [place], [address] WBC (Bld) [#/Vol] 8.1 10*3/uL Normal 4.4-11.0 [facility] Comment on above: Performed By: #### L 500.2500, L100.0100 ####[facility] [address] [place], [place], [address] Carbon dioxide measurementOr dered By: Kenya Garcia on 09-03-2024 CO2 [Moles/Vol] 24.0 mmol/L 21.0-32.0 [facility] Chloride measurementOrdered By: Kenya Garcia on 09-03-2024 Chloride [Moles/Vol] 102 mmol/L 98-107 [facility] Eosinophil percentageOrdered By: Kenya Garcia on 09-03-2024 Eosinophils/100 WBC (Bld) 0.5 % 0-5 [facility] Erythrocyte distribution wid th ratioOrdered By: Kenya Garcia on 09-03-2024 Erythrocyte distribution width (RBC) [Ratio] 17.3 % High 11.6-14.6 [facility] Erythrocyte distribution wid th standard deviationOrdered By: Kenya Garcia on 09-03-2024 Erythrocyte distribution width (RBC) [Entitic vol] 52.7 fL High 35.1-43.9 [facility] Erythrocyte distribution width (RBC) [Ratio] 52.7 fl High 35.1-43.9 [facility] Estimated glomerular filtrat ion rate (GFR) AmericanOrdered By: Kenya Garcia on 09-03-2024 Estimated GFR (MDRD) Amer 159 mL/min >60 [facility] Comment on above: GFR Calc Estimation of creatinine olga aranceOrdered By: Kenya Garcia on 09-03-2024 Estimated Creatinine Clearance Calc 76.90 ml/min [facility] Glomerular filtration rate ( GFR) estimationOrdered By: Kenya Garcia on 09-03-2024 Estimated GFR (MDRD) Non-Af Amer 132 mL/min >60 [facility] Comment on above: Non- GFR Calc GFR/1.73 sq M.predicted among non-blacks MDRD (S/P/Bld) [Vol rate/Area] 132 mL/min/{1.73_m2} >60 [facility] Comment on above: Non- GFR Calc Glucose measurementOrdered B y: Kenya Radha on 09-03-2024 Glucose [Mass/Vol] 92 mg/dL 74-106 [facility] Hematocrit Auto (Bld) [Volum e fraction]Ordered By: Kenya Garcia on 09-03-2024 Hematocrit (Bld) [Volume fraction] 31.2 % Low 37-47 [facility] Hemoglobin measurementOrdere d By: Kenya Garcia on 09-03-2024 Hemoglobin (Bld) [Mass/Vol] 9.6 g/dL Low 12.0-15.0 [facility] Immature granulocytes/100 WB C Auto (Bld)Ordered By: Kenya Garcia on 09-03-2024 Immature granulocytes/100 WBC (Bld) 0.500 % 0.0-0.9 [facility] Comment on above: IG% - Immature Granu locytes (promyelocytes, myelocytes and metamyelocytes) > 1% indicates that a LEFT SHIFT is Present. Lymphocytes Auto (Unsp spec) [#/Vol]Ordered By: Kenya Garcia on 09-03-2024 Lymphocytes (Bld) [#/Vol] 0.97 10*3/uL 0.83-4.51 [facility] Lymphocytes/100 WBC Auto (Un sp spec)Ordered By: Kenya Garcia on 09-03-2024 Lymphocytes/100 WBC (Bld) 11.9 % Low 19-41 [facility] MCV (mean corpuscular volume ) determinationOrdered By: Kenya Garcia on 09-03-2024 MCV (RBC) [Entitic vol] 83.0 fL 81-99 [facility] MR/[id number] 09-03-2024 MR/POSTOPAN2 [facility] Medical Records Department [address] [place] [address] Anesthesia Postop Eval II 09/03/24 1608 MR#: [id number] Acct: [id number] Name: MARIMAR WANG Rep #: [id number] : 1960 64 From: Stas Young MD PCP: Julio Corina, 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-C Status:ADM AMOR Y Race: C [place] [facility] [id number] Anesthesia Postop Eval I Sum Postop Eval [...] MD Cosigner Signature: Date CC: Signed Normal [facility] Mean corpuscular hemoglobin (MCH) determinationOrdered By: Kenya Garcia on 09-03-2024 MCH (RBC) [Entitic mass] 25.5 pg Low 27.0-32.0 [facility] Mean corpuscular hemoglobin concentration (MCHC) determinationOrdered By: Kenya Garcia on 09-03-2024 MCHC (RBC) [Mass/Vol] 30.8 g/dL Low 32-36 [facility] Mean platelet volume determi nationOrdered By: Kenya Garcia on 09-03-2024 Platelet mean volume (Bld) [Entitic vol] 11.4 fL 6.2-12.0 [facility] Monocyte percentageOrdered B y: Kenya Garcia on 09-03-2024 Monocytes/100 WBC (Bld) 11.7 % High 0-10 [facility] Neutrophil percentageOrdered By: Kenya Garcia on 09-03-2024 Neutrophils/100 WBC (Bld) 74.7 % High 47-70 [facility] Nucleated red blood cell per centageOrdered By: Kenya Garcia on 09-03-2024 Nucleated RBC/100 WBC (Bld) [Ratio] 0 % 0-5 [facility] Platelet countOrdered By: St yury Garcia on 09-03-2024 Platelets (Bld) [#/Vol] 219 10*3/uL 150-450 [facility] Potassium measurementOrdered By: Kenya Garcia on 09-03-2024 Potassium [Moles/Vol] 3.2 mmol/L Low 3.5-5.1 [facility] RBC Auto (Bld) [#/Vol]Ordere d By: Kenya Garcia on 09-03-2024 RBC (Bld) [#/Vol] 3.76 10*6/uL Low 4.2-5.4 [facility] Serum anion gap measurementO rdered By: Kenya Garcia on 09-03-2024 Anion gap [Moles/Vol] 7 mmol/L 5-15 [facility] Serum or plasma calcium alexis urement (mass/volume)Ordered By: Kenya Garcia on 09-03-2024 Calcium [Mass/Vol] 8.2 mg/dL Low 8.5-10.1 [facility] Serum or plasma creatinine m easurement (mass/volume)Ordered By: Kenya Garcia on 09-03-2024 Creatinine [Mass/Vol] 0.50 mg/dL Low 0.55-1.02 [facility] Comment on above: The validity of the calculated GFR & GFRAA in patients over 70 years has not been determined. Clinical correlation is essential. Serum or plasma urea nitroge n measurement (mass/volume)Ordered By: Kenya Garcia on 09-03-2024 Urea nitrogen [Mass/Vol] 8 mg/dL 7-18 [facility] Sodium levelOrdered By: Swapnil paez Riveraalfredo on 09-03-2024 Sodium [Moles/Vol] 133 mmol/L Low 136-145 [facility] White blood cell (WBC) count Ordered By: Kenya Riveraalfredo on 09-03-2024 WBC (Bld) [#/Vol] 8.1 10*3/uL 4.4-11.0 [facility] Abdomen/Pelvis W IV Cont ONL Yon 09-02-2024 Abdomen/Pelvis W IV Cont ONLY [facility] Imaging Services [address] [place] [address] Abdomen/Pelvis W IV Cont ONLY MR#: [id number] Acct: [id number] Name: MARIMAR WANG Rep #: [id number] : 1960 F 64 From: Pablo Mendoza MD PCP: Julio Arriaga NP-C Status: REG ER Study: Abdomen/Pelvis W IV Cont ONLY Date of Exam: Exam# [id number] Ordering Dr: Sonia Germain DO PROCEDURE: ABDOMEN/PELVIS [...] use of iterative reconstruction technique). Reading Location: [facility] CC: SINAI Arriaga; Dr. Sonia Germain DO Pumping Plant Operator: Signed Normal [facility] Albumin to globulin ratioOrd ered By: Sonia Germain on 09-02-2024 Albumin/Globulin [Mass ratio] 0.7 {ratio} Low 0.9-2.4 [facility] Bilirubin Test strip Ql (U)O rdered By: Sonia Germain on 09-02-2024 Bilirubin Ql (U) Negative Negative [facility] Bilirubin, totalOrdered By: Sonia Germain on 09-02-2024 Bilirubin [Mass/Vol] 0.30 mg/dL 0.20-1.00 [facility] Comment on above: For patients on eltr ombopag therapy, use of Dimension [place] TBIL is not recommended. CBC W/Diff, Automatedon Absolute Lymph 0.64 X10 3/uL Low 0.83-4.51 [facility] Comment on above: Performed By: #### L 499.0042 #### [facility] [address] [place], [address] Absolute Neut 9.5 X10 3/uL High 2.0-7.7 [facility] Comment on above: Performed By: #### L 499.0042 #### [facility] [address] [place], [address] Basophils/100 WBC (Bld) 0.8 % Normal 0-1 [facility] Comment on above: Performed By: #### L 499.0042 #### [facility] [address] [place], [address] Eosinophils/100 WBC (Bld) 0.4 % Normal 0-5 [facility] Comment on above: Performed By: #### L 499.0042 #### [facility] [address] [place], [address] Erythrocyte distribution width (RBC) [Ratio] 17.3 % High 11.6-14.6 [facility] Comment on above: Performed By: #### L 499.0042 #### [facility] [address] [place], [address] Hematocrit (Bld) [Volume fraction] 34.1 % Low 37-47 [facility] Comment on above: Performed By: #### L 499.0042 #### [facility] [address] [place], [address] Hemoglobin (Bld) [Mass/Vol] 10.4 g/dL Low 12.0-15.0 [facility] Comment on above: Performed By: #### L 499.0042 #### [facility] [address] [place], [address] IG% 0.600 Normal 0.0-0.9 [facility] Comment on above: Result Comment: IG% - Immature Granulocytes (promyelocytes, myelocytes and metamyelocytes) > 1% indicates that a LEFT SHIFT is Present. Performed By: #### L 499.0042 #### [facility] [address] [place], [address] Lymphocytes/100 WBC (Bld) 5.7 % Low 19-41 [facility] Comment on above: Performed By: #### L 499.0042 #### [facility] [address] [place], [address] MCH (RBC) [Entitic mass] 25.7 pg Low 27.0-32.0 [facility] Comment on above: Performed By: #### L 499.0042 #### [facility] [address] [place], [address] MCHC (RBC) [Mass/Vol] 30.5 g/dL Low 32-36 [facility] Comment on above: Performed By: #### L 499.0042 #### [facility] [address] [place], [address] MCV (RBC) [Entitic vol] 84.4 fL Normal 81-99 [facility] Comment on above: Performed By: #### L 499.0042 #### [facility] [address] [place], [address] Monocytes/100 WBC (Bld) 8.7 % Normal 0-10 [facility] Comment on above: Performed By: #### L 499.0042 #### [facility] [address] [place], [address] Neutrophils/100 WBC (Bld) 83.8 % High 47-70 [facility] Comment on above: Performed By: #### L 499.0042 #### [facility] [address] [place], [address] Nucleated RBC (Bld) [#/Vol] 0 10*3/uL Normal 0-5 [facility] Comment on above: Performed By: #### L 499.0042 #### [facility] [address] [place], [address] Platelet mean volume (Bld) [Entitic vol] 11.0 fL Normal 6.2-12.0 [facility] Comment on above: Performed By: #### L 499.0042 #### [facility] [address] [place], [address] Platelets (Bld) [#/Vol] 247 10*3/uL Normal 150-450 [facility] Comment on above: Performed By: #### L 499.0042 #### [facility] [address] [place], [address] RBC (Bld) [#/Vol] 4.04 10*6/uL Low 4.2-5.4 [facility] Comment on above: Performed By: #### L 499.0042 #### [facility] [address] [place], [address] RDW SD 53.5 fl High 35.1-43.9 [facility] Comment on above: Performed By: #### L 499.0042 #### [facility] [address] [place], [place], [address] WBC (Bld) [#/Vol] 11.3 10*3/uL High 4.4-11.0 [facility] Comment on above: Performed By: #### L 499.0042 #### [facility] [address] [place], [address] CNOVon 09-02-2024 CNOV Normal [facility] Chest PA and Lateralon 09-02 Chest PA and Lateral [facility] Imaging Services [address] [place], [place] [address] Chest PA and Lateral MR#: [id number] Acct: [id number] Name: MARIMAR WANG Rep #: [id number] : 1960 F 64 From: Joan Dow MD PCP: Julio Arriaga NP-C Status: [facility] Study: Chest PA and Lateral Date of Exam: 09/02/24 Exam# [id number] Ordering Dr: Sonia Germain DO EXAM: XR Chest, 2 Views CLINICAL INDICATION: TECHNIQUE: Frontal and lateral views of the chest. COMPARISON: No relevant prior studies available. FINDINGS: LUNGS AND PLEURAL SPACES: Unremarkable. No consolidation. No pneumothorax. HEART: Unremarkable. No cardiomegaly. MEDIASTINUM: Unremarkable. Normal mediastinal contour. BONES/JOINTS: Unremarkable. No acute fracture. RAD/Chest PA and Lateral IMPRESSION: No acute cardiopulmonary process. Reading Location[facility] CC: 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-C Julio Arriaga; Dr. Sonia Germain DO Pumping Plant Operator: Signed Normal [facility] Comprehensive Metabolic Prof ilon 09-02-2024 Albumin [Mass/Vol] 2.7 g/dL Low 3.2-5.0 [facility] Comment on above: Performed By: #### L 499.0042 #### [facility] [address] [place], [address] Albumin/Globulin [Mass ratio] 0.7 {ratio} Low 0.9-2.4 [facility] Comment on above: Performed By: #### L 499.0042 #### [facility] [address] [place], [address] ALK P 87 U/L Normal 45-117 [facility] Comment on above: Performed By: #### L 499.0042 #### [facility] [address] [place], [address] ALT [Catalytic activity/Vol] 17 U/L Normal 13-56 [facility] Comment on above: Performed By: #### L 499.0042 #### [facility] [address] [place], [address] AST [Catalytic activity/Vol] 18 U/L Normal 15-37 [facility] Comment on above: Performed By: #### L 499.0042 #### [facility] [address] [place], [address] Bilirubin [Mass/Vol] 0.30 mg/dL Normal 0.20-1.00 [facility] Comment on above: Result Comment: For patients on eltrombopag therapy, use of Dimension [place] TBIL is not recommended. Performed By: #### L 499.0042 #### [facility] [address] [place], [address] BUN/CRE 13.9 RATIO Normal 10-20 [facility] Comment on above: Performed By: #### L 499.0042 #### [facility] [address] [place], [address] CA,Total 8.7 mg/dL Normal 8.5-10.1 [facility] Comment on above: Performed By: #### L 499.0042 #### [facility] [address] [place], [address] Chloride [Moles/Vol] 102 mmol/L Normal 98-107 [facility] Comment on above: Performed By: #### L 499.0042 #### [facility] [address] [place], [address] CO2 [Moles/Vol] 24.0 mmol/L Normal 21.0-32.0 [facility] Comment on above: Performed By: #### L 499.0042 #### [facility] [address] [place], [address] Creatinine [Mass/Vol] 0.72 mg/dL Normal 0.55-1.02 [facility] Comment on above: Result Comment: The validity of the calculated GFR GFRAA in patients over 70 years has not been determined. Clinical correlation is essential. Performed By: #### L 499.0042 #### [facility] [address] [place], [address] ECRCL 74.18 ml/min Normal [facility] Comment on above: Performed By: #### L 499.0042 #### [facility] [address] [place], [address] EST GFR - AA 104 mL/min Normal >60 [facility] Comment on above: Result Comment: Afri can Turkmen GFR Calc Performed By: #### L 499.0042 #### [facility] [address] [place], [address] GAP 9 Normal 5-15 [facility] Comment on above: Performed By: #### L 499.0042 #### [facility] [address] [place], [address] GFR/1.73 sq M.predicted among non-blacks MDRD (S/P/Bld) [Vol rate/Area] 86 mL/min/{1.73_m2} Normal >60 [facility] Comment on above: Result Comment: Non- GFR Calc Performed By: #### L 499.0042 #### [facility] [address] [place], [address] Globulin (S) [Mass/Vol] 4.0 g/dL Normal 2.2-4.2 [facility] Comment on above: Performed By: #### L 499.0042 #### [facility] [address] [place], [address] Glucose [Mass/Vol] 91 mg/dL Normal 74-106 [facility] Comment on above: Performed By: #### L 499.0042 #### [facility] [address] [place], [address] Potassium [Moles/Vol] 3.3 mmol/L Low 3.5-5.1 [facility] Comment on above: Performed By: #### L 499.0042 #### [facility] [address] [place], [address] Sodium [Moles/Vol] 134 mmol/L Low 136-145 [facility] Comment on above: Performed By: #### L 499.0042 #### [facility] [address] [place], [address] T PROT 6.7 g/dL Normal 6.4-8.2 [facility] Comment on above: Performed By: #### L 499.0042 #### [facility] [address] [place], [address] Urea nitrogen [Mass/Vol] 10 mg/dL Normal 7-18 [facility] Comment on above: Performed By: #### L 499.0042 #### [facility] [address] [place], [address] Emergency Department Summary on 09-02-2024 Emergency Department Summary [facility] Medical Records Department [address] [place] [address] Emergency Department Summary 09/02/24 MR#: [id number] Acct: [id number] Name: MARIMAR WANG Rep #: [id number] : 1960 64 From: Sonia Germain DO PCP: Julio Arriaga NP-Marga Status:ADM AMOR Location: MS3 [id number] HPI History of Present Illness Chief Complaint: [...] complaints or concerns reported at this time. [facility] Medical History Mass of anus Perirectal abscess [...] [facility] 6 09/01/24 History peg 628-sonfntsuaxij-fzteivd n 1 1 drp OP 4X/DAY DRY [...] Constipation Unknown History gram/dose oral powder (Miralax) nhtzez-afrakbtn-bosepip See Rx Instructions PO .COMPLEX 09/01/24 Rx 36,000-114,000-180,000 unit #300 caps capsule,delay rel (Creon) acetaminophen 500 mg tablet 1,000 mg PO Q6H PRN fever or pain 11/15/23 09/01/24 History atorvastatin 80 mg tablet 80 mg PO QHS 11/15/23 09/01/24 His tory hydrocortisone 2.5 % topical cream 1 applic [place] BID PRN Crohn's 10/19 Unknown Rx with perineal applicator disease #30 grams meclizine 25 mg tablet 25 mg PO DAILY PRN PRN dizziness 0 03/17/24 Unknown History budesonide 3 mg 6 mg (2 x 3 mg) PO DAILY #60 caps 04/09/24 09/01/24 Rx capsule,delayed,extended release herron (more content not included)... Normal [facility] Epithelial cells.squamous LM Ql (Urine sed)Ordered By: Sonia Germain on 09-02-2024 Epithelial cells.squamous LM.HPF (Urine sed) [#/Area] 0 /[HPF] 5-10 [facility] Glucose Ql (U)Ordered By: Joshua Germain on 09-02-2024 Urine Glucose (UA) Normal mg/dl Normal [facility] Hyaline casts LM.LPF (Urine sed) [#/Area]Ordered By: Sonia Germain on 09-02-2024 Hyaline casts (Urine sed) [#/Area] 0 /[LPF] 0-5 [facility] Hyaline casts LM Ql (Urine sed) 0-5 SEEN /lpf 0-5 [facility] Influenza virus A and B and SARS-CoV-2 (COVID-19) and Respiratory syncytial virus RNAOrdered By: Sonia Germain on 09-02-2024 SARS-CoV-2 (COVID-19) RNA CORAL+probe Ql (Unsp spec) SARS-CoV-2 (COVID 19 PCR) Abnormal [facility] Ketones Test strip Ql (U)Ord ered By: Sonia Gemrain on 09-02-2024 Ketones Ql (U) Negative Negative [facility] Laboratory - Chemistry and C hemistry - challengeOrdered By: Sonia Germain on 09-02-2024 AST [Catalytic activity/Vol] 18 U/L 15-37 [facility] M100.678on 09-02-2024 M100.678 Copy of report sent to Infection Control Printer MS#[id number] 09/02/24 1313 JPARLET. FLUABV+SARS-CoV-2+RSV Pnl Resp CORAL+probe FLUABV+SARS-CoV-2+RSV Pnl Resp CORAL+probe SARS-CoV-2 (COVID 19) A Positive A INFLUENZA A Negative INFLUENZA B Negative RSV PCR Negative SARS-CoV-2 (COVID 19 PCR) [facility] Comment on above: Performed By: #### L 400.0001, M100.678 ####[facility] [address] [facility] [place], [address] MR/POSTOP.ANE 09-02-2024 MR/POSTOP.[facility] Medical Records Department [address] [place] [address] Anesthesia Postop Eval I 09/02/24 1717 MR#: [id number] Acct: [id number] Name: MARIMAR WANG Rep #: [id number] : 1960 64 From: Stas Young MD PCP: Julio Arriaga 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-C Status:DIS AMOR Y Race: C Location: [place] [address] Anesthesia: Postop Eval I Current Vital Signs [...] document: Postop Eval 1 completed: Yes 09/03/24 1608 Date Stas Young MD 11/30/24 1656 Cosigner Signature: Date Luke Hearn CRNA CC: Signed [facility] Microscopic analysis of urin e for red blood cells (RBC)Ordered By: Sonia Germain on 09-02-2024 Microscopic analysis of urine for red blood cells (RBC) 0 SEEN /hpf 0-5 [facility] Urine RBC 0 SEEN /hpf 0-5 [facility] Mucus LM Ql (Urine sed)Order ed By: Sonia Germain on 09-02-2024 Mucus Ql (Urine sed) 0 SEEN /hpf [facility] Nitrite Test strip Ql (U)Ord ered By: Sonia Germain on 09-02-2024 Nitrite Ql (U) Negative Negative [facility] Operative Reporton Operative Report [facility] Medical Records Department [address] [facility] [facility] [place] [address] Operative Report 09/02/24 1723 MR#: [id number] Acct: [id number] Name: MARIMAR WANG Rep #: [id number] : 1960 64 From: Kenya Garcia MD PCP: SINAI Arriola Status:ADM AMOR Location: [place] [id number] Problems Associated Problem List Diagnoses (1) Perirectal abscess: (2) Mass of anus: Multi Select Codes Digestive Digestive CPT Codes: 64205 Incision of rectal abscess [place] [address] Anoscopy and biopsy Operative Report (Standard) Operative Information Date of Procedure: 09/02/24 Pre-Operative Diagnosis: Right-sided perirectal abscess Post-Operative Diagnosis: Suspect perianal mass with associated fluid collection/abscess Surgery/Procedure Performed: 1. Incision and drainage of perirectal abscess/fluid collection 2. Biopsy of perianal mass transportation coordinator: No Type of Anesthesia: Local and MAC [...] female who presented earlier today to the [place] emergency department with complaints of perianal pain [...] to have a perianal mass. This extended senior care external to the anal verge and seemed [...] prophylaxis not ordered: Treatment Not Indicated 09/02/24 5789 Cosigner Signature (if applicable): CC: [facility] Arriaga; Dr. Kenya Garcia MD Signed Normal [facility] Protein Test strip Ql (U)Ord ered By: Sonia Germain on 09-02-2024 Protein Ql (U) 30 mg/dl High Negative [facility] Serum globulin measurementOr dered By: Sonia Germain on 09-02-2024 Globulin (S) [Mass/Vol] 4.0 g/dL 2.2-4.2 [facility] Serum or plasma alanine alarcon otransferase (ALT) measurementOrdered By: Sonia Germain on 09-02-2024 ALT [Catalytic activity/Vol] 17 U/L 13-56 [facility] Serum or plasma albumin alexis urement (mass/volume)Ordered By: Sonia Germain on 09-02-2024 Albumin [Mass/Vol] 2.7 g/dL Low 3.2-5.0 [facility] Serum or plasma alkaline [place] sphatase measurementOrdered By: Sonia Germain on 09-02-2024 ALP [Catalytic activity/Vol] 87 U/L 45-117 [facility] Squamous epithelial cells de tection in urine sediment by light microscopyOrdered By: Sonia Germain on 09-02-2024 Epithelial cells.squamous LM Ql (Urine sed) 0-5 SEEN /hpf 5-10 [facility] Surgery Specimen Level Nubia 09-02-2024 Surgery Specimen Level IV Patient Age/Sex Location Account Attending Physician MARIMAR WANG 64/F MS3 [id number] Dr. Kenya Garcia MD Specimen: [id number] Received: 09/02/24 Status: SAMREEN Aparicio Num: [id number] Spec Type: Mass Subm Dr: Dr. 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 See comment. 09/04/2024 COMMENT Immunohistochemistry ([id number]) for surrogate HPV marker (p16) will be [...] entire specimen is submitted in one cassette. 09/03/2024 TC:0 CPT:68693 Patient Age/Sex Location Account Attending Physician MARIMAR WANG 64/F MS3 [id number] Dr. Kenya Garcia MD Signed (signature on file) Dr. Fred Gonzales MD 09/04/24 1212 [facility] Comment on above: Performed By: #### P IRMA ####[facility] [address] [place], [address] Total proteinOrdered By: Ariane Germain on 09-02-2024 Protein [Mass/Vol] 6.7 g/dL 6.4-8.2 [facility] Urate crystals LM.HPF (Urine sed) [#/Area]Ordered By: Sonia Germain on 09-02-2024 Urine Uric Acid Crystals 1+ /hpf [facility] Urinalysis, Completeon 09-02 URIC CRYSTALS 1+ /hpf Normal [facility] Comment on above: Order Comment: CLEAN CATCH Performed By: #### L 400.0001, M100.678 ####[facility] [address] [place], [address] CAST,HYALINE 0-5 SEEN Normal 0-5 [facility] Comment on above: Order Comment: CLEAN CATCH Performed By: #### L 400.0001, M1 ####[facility] [address] [place], [address] EPI,SQUAMOUS 0-5 SEEN Normal 5-10 [facility] Comment on above: Order Comment: CLEAN CATCH Performed By: #### L 400.0001, M100.8 ####[facility] [address] [place], [address] WBC 0-5 SEEN Normal 0-5 [facility] Comment on above: Order Comment: CLEAN CATCH Performed By: #### L 400.0001, M18 ####[facility] [address] [place], [address] BACTERIA 0 SEEN Normal None Seen [facility] Comment on above: Order Comment: CLEAN CATCH Performed By: #### L 400.0001, [id number] ####[facility] [address] [place], [address] Mucus Ql (Urine sed) 0 SEEN Normal [facility] Comment on above: Order Comment: CLEAN CATCH Performed By: #### L 400.0001, M100.678 ####[facility] [address] [place], [place], [address] RBC 0 SEEN Normal 0-5 [facility] Comment on above: Order Comment: CLEAN CATCH Performed By: #### L 400.0001, M100.678 ####[facility] [address] [place], [place], [address] Urine blood detectionOrdered By: Sonia Germain on 09-02-2024 Urine Occult Blood Negative Negative [facility] Urine clarityOrdered By: Ariane Germain on 09-02-2024 Clarity (U) Clear Clear [facility] Urine color determinationOrd ered By: Sonia Germain on 09-02-2024 Color (U) Yellow Yellow [facility] Urine glucose detectionOrder ed By: Sonia Germain on 09-02-2024 Glucose Ql (U) Normal mg/dl Normal [facility] Urine leukocyte esterase det ection by dipstickOrdered By: Sonia Germain on 09-02-2024 Leukocyte esterase Test strip Ql (U) 25 /ul High Negative [facility] Urine pHOrdered By: Sonia corbett on 09-02-2024 pH (U) 6.0 [pH] 5.0 - 8.0 [facility] Urine sediment bacteria coun t by microscopy (number/high power field)Ordered By: Sonia Germain on 09-02-2024 Bacteria LM.HPF (Urine sed) [#/Area] 0 /[HPF] None Seen [facility] Urine sediment uric acid cry stal count by microscopy (number/high power field)Ordered By: Sonia Germain on 09-02-2024 Urate crystals LM.HPF (Urine sed) [#/Area] 1 /[HPF] [facility] Urine specific gravity measu rementOrdered By: Sonia Germain on 09-02-2024 Specific gravity (U) [Rel density] 1.015 1.002-1.030 [facility] Urine urobilinogen measureme ntOrdered By: Sonia Germain on 09-02-2024 Urobilinogen Ql (U) 1 mg/dl High Normal [facility] Urobilinogen Ql (U)Ordered B y: Sonia Germain on 09-02-2024 Urobilinogen (U) [Mass/Vol] 1 mg/dL High Normal [facility] White blood cell countOrdere d By: Sonia Germain on 09-02-2024 Urine WBC 0-5 SEEN /hpf 0-5 [facility] White blood cell count 0-5 SEEN /hpf 0-5 [facility] p16 (initial)on 09-02-2024 p16 (initial) ---- Patient Age/Sex Location Account Attending Physician MARIMAR WANG 64/F MS3 [id number] Dr. Kenya Garcia MD Specimen: [id number] Received: 09/04/24 Status: SAMREEN Aparicio Num: [id number] Spec Type: IMMUNO Subm Dr: Dr. Kenya Garcia MD [facility] [address] [address] SPECIMEN INFORMATION: Tissue Source: Perianal mass biopsy Clinical Info: Perirectal abscesses Specimen Number: [id number] CPT code: 99943,05391 METHODOLOGY: Deparaffinized sections of prefer/formalin-fixed tissue or [...] developed and their performance characteristics determined by [facility]. They may not have been [...] Dr. Fred Gonzales MD 09/07/24 1146 Normal [facility] Comment on above: Performed By: #### L 499.0042 #### [facility] [address] [place], [address] Gastroenterology Visit Repor ton 08-27-2024 Gastroenterology Visit Report [facility] Gastroenterology [address] [place] [address] OFFICE VISIT Date of Service: 08/27/24 MR#: [id number] Acct: [id number] Name: MARIMAR WANG Rep #: [id number] : 1960 Provider: Andrez Friend, DO Age/Sex: 64/F Location: [facility] Status: Signed Intake Vital Signs 03/20/24 [...] capsule 60 mg PO Q MENTAL HEALTH 6 08/27/24 History bupropion HCl 150 mg 24 hr tablet, 150 mg PO Q MENTAL HEALTH 10/2708/27/24 History extended release peg 814-lkuxxqyhopmk-iourvzo n 1 1 drp OP 4X/DAY DRY EYES 11/13/17 08/27/24 History %-0.2 %-0.2 % eye drops (Dry Eye Relief) leflunomide 20 mg tablet (Arava) 20 mg PO DAILY RA 03/22/1808/27/ 5 History amlodipine 5 mg tablet 7.5 mg PO DAILY BP 08/15/22 History mometasone 50 mcg/actuation nasal 2 spray intranasal DAILY ALLERGIE S 08/15/22 08/27/24 History spray ergocalciferol (vitamin D2) 1,250 1,250 mcg PO .EVERY OTHER WEEK 08/27/24 History mcg (50,000 unit) capsule (Vitamin SUPPELEMNT D2) mecobalamin (vitamin B12) 1,000 1,000 mcg sublingual DAILY 3 08/27/24 History mcg disintegrating SUPPLEMENT tablet,sublingual abatacept 50 mg/0.4 mL 50 mg subcut QMONTH RA 12/17/22 History subcutaneous syringe (Orencia) polyethylene glycol 3350 17 4 g PO PRN PRN Constipation 08/27/24 History gram/dose oral powder (Miralax) wajynv-nhjlzkme-tzokgdy See Rx Instructions PO .COMPLEX 08/27/24 Rx 36,000-114,000-180,000 unit #300 caps capsule,delay rel (Creon) acetaminophen 500 mg tablet 1,000 mg PO Q6H PRN fever or pain 11/15/23 08/27/24 History atorvastatin 80 mg tablet 80 mg PO QDAY 11/15/23 08/27/24 Hi story hydrocortisone 2.5 % topical cream 1 applic [place] BID PRN Crohn's 10/1908/27/24 Rx with perineal applicator disease #30 [...] Osteoporosis Con (more content not included)... Normal [facility] BD DXA - AXIAL SKELETONon BD DXA - AXIAL SKELETON Normal [facility] CBC W Auto Differential pane l (Bld)on 08-20-2024 Basophils (Bld) [#/Vol] 0.10 10*3/uL Normal <0.11 [facility] Comment on above: Order Comment: Speci men Type: BLOOD SPECIMENOrdering Facility: [facility] Address: [address] [place] [address] Performed By: #### 5 7021-8 ####[facility] [id number] [place] [address] [place] Basophils/100 WBC (Bld) 1.1 % Normal [facility] Comment on above: Order Comment: Speci men Type: BLOOD SPECIMENOrdering Facility: [facility] Address: [address] [place] [address] Performed By: #### 5 7021-8 ####[facility] [id number] [place] [address] [place] Differential cell count method Nom (Bld) Auto Normal [facility] Comment on above: Order Comment: Speci men Type: BLOOD SPECIMENOrdering Facility: [facility] Address: [address] [place] [address] Performed By: #### 5 7021-8 ####[facility] MARSHALTIFFANIFroy [id number] [place] [address] [place] Eosinophils (Bld) [#/Vol] 0.19 10*3/uL Normal <0.46 [facility] Comment on above: Order Comment: Speci men Type: BLOOD SPECIMENOrdering Facility: [facility] Address: [address] [place] [address] Performed By: #### 5 7021-8 ####[facility]ITALNICOLE [id number] [place] [address] [place] Eosinophils/100 WBC (Bld) 2.2 % Normal [facility] Comment on above: Order Comment: Speci men Type: BLOOD SPECIMENOrdering Facility: [facility] Address: [address] [place] [address] Performed By: #### 5 7021-8 ####[facility]OS[facility]ITALNCBLAKE [id number] [place] [address] [place] Erythrocyte distribution width (RBC) [Ratio] 18.5 % High 11.5-15.0 [facility] Comment on above: Order Comment: Speci men Type: BLOOD SPECIMENOrdering Facility: [facility] Address: [address] [place] [address] Performed By: #### 5 7021-8 ####[facility] HOSPITALZEVLIA [id number] [place] [address] [place] Hematocrit (Bld) [Volume fraction] 38.2 % Normal 36.0-46.0 [facility] Comment on above: Order Comment: Speci men Type: BLOOD SPECIMENOrdering Facility: [facility] Address: [address] [place] [address] Performed By: #### 5 7021-8 ####[facility] HOS[facility]ITALNCLIA [id number] [place] [address] [place] Hemoglobin (Bld) [Mass/Vol] 11.7 g/dL Normal 11.5-15.5 [facility] Comment on above: Order Comment: Speci men Type: BLOOD SPECIMENOrdering Facility: [facility] Address: [address] [place], [place] [address] Performed By: #### 5 7021-8 ####[facility]ITALA [id number] [place] [address] [place] Immature granulocytes (Bld) [#/Vol] 0.04 10*3/uL Normal <0.10 [facility] Comment on above: Order Comment: Speci men Type: BLOOD SPECIMENOrdering Facility: [facility] Address: [address] [place] [address] Performed By: #### 5 7021-8 ####[facility]A [id number] [place] [address] [place] Immature granulocytes/100 WBC (Bld) 0.5 % Normal [facility] Comment on above: Order Comment: Speci men Type: BLOOD SPECIMENOrdering Facility: [facility] Address: [address] [place], [place] [address] Performed By: #### 5 7021-8 ####[facility]A [id number] [place] [address] [place] Lymphocytes (Bld) [#/Vol] 1.22 10*3/uL Normal 1.00-4.00 [facility] Comment on above: Order Comment: Speci men Type: BLOOD SPECIMENOrdering Facility: [facility] Address: [address] [place], [place] [address] Performed By: #### 5 7021-8 ####[facility] CENTERLI [id number] [place] [address] [place] Lymphocytes/100 WBC (Bld) 13.9 % Normal [facility] Comment on above: Order Comment: Speci men Type: BLOOD SPECIMENOrdering Facility: [facility] Address: [address] [place] [address] Performed By: #### 5 7021-8 ####[facility]ITALZEVTOOELE [facility] [id number] [place] [address] [place] MCH (RBC) [Entitic mass] 25.2 pg Low 26.0-34.0 [facility] Comment on above: Order Comment: Speci men Type: BLOOD SPECIMENOrdering Facility: [facility] Address: [address] [place] [address] Performed By: #### 5 7021-8 ####[facility]ITALZEVTOOELE [facility] [id number] [place] [address] [place] MCHC (RBC) [Mass/Vol] 30.6 g/dL Normal 30.5-36.0 [facility] Comment on above: Order Comment: Speci men Type: BLOOD SPECIMENOrdering Facility: [facility] Address: [address] [place] [address] Performed By: #### 5 7021-8 ####[facility] [id number] [place] [address] [place] MCV (RBC) [Entitic vol] 82.2 fL Normal 80.0-100.0 [facility] Comment on above: Order Comment: Speci men Type: BLOOD SPECIMENOrdering Facility: [facility] Address: [address] [place] [address] Performed By: #### 5 7021-8 ####[facility] HOSPITALNCLI [id number] [place] [address] [place] Monocytes (Bld) [#/Vol] 0.84 10*3/uL Normal <0.87 [facility] Comment on above: Order Comment: Speci men Type: BLOOD SPECIMENOrdering Facility: [facility] Address: [address] [place] [address] Performed By: #### 5 7021-8 ####[facility] HOSPITALNCLIA [id number] [place] [address] [place] Monocytes/100 WBC (Bld) 9.6 % Normal [facility] Comment on above: Order Comment: Speci men Type: BLOOD SPECIMENOrdering Facility: [facility] Address: [address] [place] [address] Performed By: #### 5 7021-8 ####[facility] HOSPITALNCA [id number] [place] [address] [place] Neutrophils (Bld) [#/Vol] 6.37 10*3/uL Normal 1.45-7.50 [facility] Comment on above: Order Comment: Speci men Type: BLOOD SPECIMENOrdering Facility: [facility] Address: [address] [place] [address] Performed By: #### 5 7021-8 ####[facility]ITALA [id number] [place] [address] [place] Neutrophils/100 WBC (Bld) 72.7 % Normal [facility] Comment on above: Order Comment: Speci men Type: BLOOD SPECIMENOrdering Facility: [facility] Address: [address] [place] [address] Performed By: #### 5 7021-8 ####[facility] CENTERLIA [id number] [place] [address] [place] Nucleated RBC (Bld) [#/Vol] 10*3/uL Normal <0.01 [facility] Comment on above: Order Comment: Speci men Type: BLOOD SPECIMENOrdering Facility: [facility] Address: [address] [place] [address] Performed By: #### 5 7021-8 ####[facility] MILLWNCLIA [id number] [place] [address] [place] Nucleated RBC/100 WBC (Bld) [Ratio] 0.0 /100 WBC Normal [facility] Comment on above: Order Comment: Speci men Type: BLOOD SPECIMENOrdering Facility: [facility] Address: [address] [place] [address] Performed By: #### 5 7021-8 ####[facility] HOSPITALZEVLIA [id number] [place] [address] [place] Platelet mean volume (Bld) [Entitic vol] 10.9 fL Normal 9.0-12.7 [facility] Comment on above: Order Comment: Speci men Type: BLOOD SPECIMENOrdering Facility: [facility] Address: [address] [place] [address] Performed By: #### 5 7021-8 ####[facility]ITALA [id number] [place] [address] [place] Platelets (Bld) [#/Vol] 263 10*3/uL Normal 150-400 [facility] Comment on above: Order Comment: Speci men Type: BLOOD SPECIMENOrdering Facility: [facility] Address: [address] [place] [address] Performed By: #### 5 7021-8 ####[facility] CENTERLIA [id number] [place] [address] [place] RBC (Bld) [#/Vol] 4.65 10*6/uL Normal 3.90-5.20 [facility] Comment on above: Order Comment: Speci men Type: BLOOD SPECIMENOrdering Facility: [facility] Address: [address] [place] [address] Performed By: #### 5 7021-8 ####[facility] CENTERLIA [id number] [place] [address] [place] WBC (Bld) [#/Vol] 8.76 10*3/uL Normal 3.70-11.00 [facility] Comment on above: Order Comment: Speci men Type: BLOOD SPECIMENOrdering Facility: [facility] Address: [address] [place] [address] Performed By: #### 5 7021-8 ####[facility] RIGOBERTO [facility]ITALA [id number] [place] [address] [place] Ferritin SerPl-ncon 2024 Ferritin [Mass/Vol] 117.0 ng/mL Normal 14.7-205.1 [facility] Comment on above: Order Comment: Speci men Type: BLOOD SPECIMENOrdering Facility: [facility] Address: [address] [place] [address] Performed By: #### 2 276-4, 73969-4 ####[facility] LABCLIA [id number] [place] [address] [place] Iron and Iron binding capaci ty panelon 08-20-2024 Iron [Mass/Vol] 21 ug/dL Low 41-186 [facility] Comment on above: Order Comment: Speci men Type: BLOOD SPECIMENOrdering Facility: [facility] Address: [address] [place] [address] Performed By: #### 2 276-4, 87493-1 ####[facility] LABCLIA [id number] [place] [address] [place] Iron binding capacity [Mass/Vol] 281 ug/dL Normal 232-386 [facility] Comment on above: Order Comment: Speci men Type: BLOOD SPECIMENOrdering Facility: [facility] Address: [address] [place] [address] Performed By: #### 2 276-4, 91760-1 ####[facility] LABCLIA [id number] [place] [address] [place] Iron/TIBC [Molar ratio] 7.5 % Low 15.0-57.0 [facility] Comment on above: Order Comment: Speci men Type: BLOOD SPECIMENOrdering Facility: [facility] Address: [address] [place] [address] Performed By: #### 2 276-4, 24059-8 ####[facility] LABCLIA [id number] [place] [id number] [place] CNPNon 08-17-2024 CNPN Normal [facility] RPR [CCL]on 06-30-2024 Reagin Ab RPR Ql (S) Non-Reactive Normal Nonreactive J l [facility] Comment on above: Result Comment: Rapi d plasma reagin (RPR) test detects non-treponemal antibodies. RPR may be reactive in a variety of infectious and non-infectious conditions. Correlation with clinical picture and with treponemal antibody results is required [place] [address] Bladimir Jean-Baptiste III, M.D. [id number] Performed By: #### 2 [address]40 #### [place] [id number] FOLATESon 06-29-2024 FOLATES 8.7 ng/ml Normal 8.6 - 58.9 [facility] Comment on above: Performed By: #### 2 64319 #### [facility],[address] [place], [place] [id number] RPR Ser Qlon 06-29-2024 Reagin Ab RPR Ql (S) Non-Reactive Normal Nonreactive C [facility] Comment on above: Order Comment: Speci men Type: BLOOD SPECIMENOrdering Facility: [facility] Address: [address] [place], [place] [id number] Result Comment: Rapi d plasma reagin (RPR) test detects non-treponemal antibodies. RPR may be reactive in a variety of infectious and non-infectious conditions. Correlation with clinical picture and with treponemal antibody results is required for final interpretation. Performed By: #### 2 0507-0 ####[facility] LABANY [id number] [place] [id number] [place] Jeremy 06-16-2024 CNPN Telephone (RHBATH) -------- MARIMAR WANG ([id number]) 1960 F Date Time Provider Department 06/16/24 JENNIFER ARIAS RHBATH During your visit today, we recorded the following information about you: Rosio Buck LPN 06/16/2024 12:37 PM Signed Patient asking if she can have her Orencia infusions at [facility] at [facility] On[facility]. Patient does not drive [...] that the authorization/orders could be flipped to [place] and there shouldn't be an issue with the authorization. Patient was agreeable to having all treatments in [place]. Spoke with patient and she does want to have treatments here. Advised that her authorization for [place] is no longer open/available and that she will be treated in [place] as she has requested. Patient will reschedule balance of iron infusions when she comes in for her treatment on 06/18. Rosio Nails LPN 06/22/2024 2:26 PM Signed FYI, no further action needed. Infusions completed at [facility] as scheduled on 06/18/2024. Rosio Buck LPN [...] 80 mg by mouth once daily. - yjaiho-telchnoh-oszahfq (CREON 36) 36,000-114,000- 180,000 unit delayed release [...] Comments as of 02/06/2017: Herlinda use pharmacy [facility] [place] [address] Problem List As Of Date 06/16/2024 Noted Resolved Fractur (more content not included)... Normal [facility] CNPN Normal [facility] CBC W Auto Differential pane l (Bld)on 06-15-2024 Basophils (Bld) [#/Vol] 0.10 10*3/uL [facility] Basophils/100 WBC (Bld) 1.3 % C [facility] Differential cell count method Nom (Bld) Auto [facility] Eosinophils (Bld) [#/Vol] 0.16 10*3/uL [facility] Eosinophils/100 WBC (Bld) 2.1 % [facility] Erythrocyte distribution width (RBC) [Ratio] 16.7 % High 11.5 - 15.0 % [facility] Hematocrit (Bld) [Volume fraction] 32.8 % Low 36.0 - 46.0 % [facility] Hemoglobin (Bld) [Mass/Vol] 9.9 g/dL Low 11.5 - 15.5 g/dL [facility] Immature granulocytes (Bld) [#/Vol] [facility] Immature granulocytes/100 WBC (Bld) 0.3 % [facility] Interpretation and review of laboratory results Abnormal [facility] Lymphocytes (Bld) [#/Vol] 1.53 10*3/uL [facility] Lymphocytes/100 WBC (Bld) 20.0 % [facility] MCH (RBC) [Entitic mass] 23.8 pg Low 26.0 - 34.0 pg [facility] MCHC (RBC) [Mass/Vol] 30.2 g/dL Low 30.5 - 36.0 g/dL [facility] MCV (RBC) [Entitic vol] 78.8 fL Low 80.0 - 100.0 fL [facility] Monocytes (Bld) [#/Vol] 0.65 10*3/uL [facility] Monocytes/100 WBC (Bld) 8.5 % [facility] Neutrophils (Bld) [#/Vol] 5.19 10*3/uL [facility] Neutrophils/100 WBC (Bld) 67.8 % [facility] Nucleated RBC (Bld) [#/Vol] [facility] Nucleated RBC/100 WBC (Bld) [Ratio] 0.0 % /100 WBC [facility] Platelet mean volume (Bld) [Entitic vol] 11.4 fL 9.0 - 12.7 fL [facility] Platelets (Bld) [#/Vol] 248 10*3/uL [facility] RBC (Bld) [#/Vol] 4.16 10*6/uL 3.90 - 5.2 0 m/uL [facility] WBC (Bld) [#/Vol] 7.65 10*3/uL [facility] Basophils (Bld) [#/Vol] 0.10 10*3/uL Normal <0.11 [facility] Comment on above: Order Comment: Speci men Type: BLOOD SPECIMENOrdering Facility: [facility] Address: [address] [place] [address] Performed By: #### 5 7021-8 ####[facility] ALYSSAALEJANDRINALIA [id number] [place] [address] [place] Basophils/100 WBC (Bld) 1.3 % Normal [facility] Comment on above: Order Comment: Speci men Type: BLOOD SPECIMENOrdering Facility: [facility] Address: [address] [place] [address] Performed By: #### 5 7021-8 ####[facility] CENTERLIA [id number] [place] [address] [place] Differential cell count method Nom (Bld) Auto Normal [facility] Comment on above: Order Comment: Speci men Type: BLOOD SPECIMENOrdering Facility: [facility] Address: [address] [place] [address] Performed By: #### 5 7021-8 ####[facility] CENTERLIA [id number] [place] [address] [place] Eosinophils (Bld) [#/Vol] 0.16 10*3/uL Normal <0.46 [facility] Comment on above: Order Comment: Speci men Type: BLOOD SPECIMENOrdering Facility: [facility] Address: [address] [place] [address] Performed By: #### 5 7021-8 ####[facility] MILLWNCLIA [id number] [place] [address] [place] Eosinophils/100 WBC (Bld) 2.1 % Normal [facility] Comment on above: Order Comment: Speci men Type: BLOOD SPECIMENOrdering Facility: [facility] Address: [address] [place] [address] Performed By: #### 5 7021-8 ####[facility] SERVICESWNCLIA [id number] [place] [address] [place] Erythrocyte distribution width (RBC) [Ratio] 16.7 % High 11.5-15.0 [facility] Comment on above: Order Comment: Speci men Type: BLOOD SPECIMENOrdering Facility: [facility] Address: [address] [place] [address] Performed By: #### 5 7021-8 ####[facility] HOSPITALZEVLIA [id number] [place] [address] [place] Hematocrit (Bld) [Volume fraction] 32.8 % Low 36.0-46.0 [facility] Comment on above: Order Comment: Speci men Type: BLOOD SPECIMENOrdering Facility: [facility] Address: [address] [place] [address] Performed By: #### 5 7021-8 ####[facility] HOSPITALZEVLI [id number] [place] [address] [place] Hemoglobin (Bld) [Mass/Vol] 9.9 g/dL Low 11.5-15.5 [facility] Comment on above: Order Comment: Speci men Type: BLOOD SPECIMENOrdering Facility: [facility] Address: [address] [place] [address] Performed By: #### 5 7021-8 ####[facility] CENTERLIA [id number] [place] [address] [place] Immature granulocytes (Bld) [#/Vol] 10*3/uL Normal <0.10 [facility] Comment on above: Order Comment: Speci men Type: BLOOD SPECIMENOrdering Facility: [facility] Address: [address] [place] [address] Performed By: #### 5 7021-8 ####[facility] HOSPITALNCLIA [id number] [place] [address] [place] Immature granulocytes/100 WBC (Bld) 0.3 % Normal [facility] Comment on above: Order Comment: Speci men Type: BLOOD SPECIMENOrdering Facility: [facility] Address: [address] [place] [address] Performed By: #### 5 7021-8 ####[facility] HOSPITALNCTOOELE [facility] [id number] [place] [address] [place] Lymphocytes (Bld) [#/Vol] 1.53 10*3/uL Normal 1.00-4.00 [facility] Comment on above: Order Comment: Speci men Type: BLOOD SPECIMENOrdering Facility: [facility] Address: [address] [place] [address] Performed By: #### 5 7021-8 ####[facility] [id number] [place] [address] [place] Lymphocytes/100 WBC (Bld) 20.0 % Normal [facility] Comment on above: Order Comment: Speci men Type: BLOOD SPECIMENOrdering Facility: [facility] Address: [address] [place] [address] Performed By: #### 5 7021-8 ####[facility] [id number] [place] [address] [place] MCH (RBC) [Entitic mass] 23.8 pg Low 26.0-34.0 [facility] Comment on above: Order Comment: Speci men Type: BLOOD SPECIMENOrdering Facility: [facility] Address: [address] [place], [place] [id number] Performed By: #### 5 7021-8 ####[facility] [id number] [place] [address] [place] MCHC (RBC) [Mass/Vol] 30.2 g/dL Low 30.5-36.0 [facility] Comment on above: Order Comment: Speci men Type: BLOOD SPECIMENOrdering Facility: [facility] Address: [address] [place] [address] Performed By: #### 5 7021-8 ####[facility] HOSPITALNICOLE [id number] [place] [address] [place] MCV (RBC) [Entitic vol] 78.8 fL Low 80.0-100.0 [facility] Comment on above: Order Comment: Speci men Type: BLOOD SPECIMENOrdering Facility: [facility] Address: [address] [place] [address] Performed By: #### 5 7021-8 ####[facility] [id number] [place] [address] [place] Monocytes (Bld) [#/Vol] 0.65 10*3/uL Normal <0.87 [facility] Comment on above: Order Comment: Speci men Type: BLOOD SPECIMENOrdering Facility: [facility] Address: [address] [place] [address] Performed By: #### 5 7021-8 ####[facility] HOSPITALNCA [id number] [place] [address] [place] Monocytes/100 WBC (Bld) 8.5 % Normal [facility] Comment on above: Order Comment: Speci men Type: BLOOD SPECIMENOrdering Facility: [facility] Address: [address] [place] [address] Performed By: #### 5 7021-8 ####[facility] HOSPITALNCLIA [id number] [place] [address] [place] Neutrophils (Bld) [#/Vol] 5.19 10*3/uL Normal 1.45-7.50 [facility] Comment on above: Order Comment: Speci men Type: BLOOD SPECIMENOrdering Facility: [facility] Address: [address] [place] [address] Performed By: #### 5 7021-8 ####[facility] ALYSSAWZEVLIA [id number] [place] [address] [place] Neutrophils/100 WBC (Bld) 67.8 % Normal [facility] Comment on above: Order Comment: Speci men Type: BLOOD SPECIMENOrdering Facility: [facility] Address: [address] [place] [address] Performed By: #### 5 7021-8 ####[facility] HOSPITALZEVLIA [id number] [place] [address] [place] Nucleated RBC (Bld) [#/Vol] 10*3/uL Normal <0.01 [facility] Comment on above: Order Comment: Speci men Type: BLOOD SPECIMENOrdering Facility: [facility] Address: [address] [place] [address] Performed By: #### 5 7021-8 ####[facility] [id number] [place] [address] [place] Nucleated RBC/100 WBC (Bld) [Ratio] 0.0 /100 WBC Normal [facility] Comment on above: Order Comment: Speci men Type: BLOOD SPECIMENOrdering Facility: [facility] Address: [address] [place] [address] Performed By: #### 5 7021-8 ####[facility] CENTERTIFFANIA [id number] [place] [address] [place] Platelet mean volume (Bld) [Entitic vol] 11.4 fL Normal 9.0-12.7 [facility] Comment on above: Order Comment: Speci men Type: BLOOD SPECIMENOrdering Facility: [facility] Address: [address] [place] [address] Performed By: #### 5 7021-8 ####[facility] CENTERLIA [id number] [place] [address] [place] Platelets (Bld) [#/Vol] 248 10*3/uL Normal 150-400 [facility] Comment on above: Order Comment: Speci men Type: BLOOD SPECIMENOrdering Facility: [facility] Address: [address] [place] [address] Performed By: #### 5 7021-8 ####[facility] HOSPITALNCA [id number] [place] [address] [place] RBC (Bld) [#/Vol] 4.16 10*6/uL Normal 3.90-5.20 [facility] Comment on above: Order Comment: Speci men Type: BLOOD SPECIMENOrdering Facility: [facility] Address: [address] [place] [address] Performed By: #### 5 7021-8 ####[facility] HOSPITALNCA [id number] [place] [address] [place] WBC (Bld) [#/Vol] 7.65 10*3/uL Normal 3.70-11.00 [facility] Comment on above: Order Comment: Speci men Type: BLOOD SPECIMENOrdering Facility: [facility] Address: [address] [place] [address] Performed By: #### 5 7021-8 ####[facility] CENTERLIA [id number] [place] [address] [place] CNOVSPon 06-15-2024 CNOVSP Normal [facility] Ferritin SerPl-mCncon 2023 Ferritin [Mass/Vol] 20.9 ng/mL Normal 14.7-205.1 [facility] Comment on above: Order Comment: Speci men Type: BLOOD SPECIMENOrdering Facility: [facility] Address: [address] [place] [address] Performed By: #### 2 276-4, 11914-0 ####[facility] LABCLIA [id number] [place] [address] [place] Iron and Iron binding capaci ty panelon 06-15-2024 Iron [Mass/Vol] 19 ug/dL Low 41-186 [facility] Comment on above: Order Comment: Speci men Type: BLOOD SPECIMENOrdering Facility: [facility] Address: [address] [place] [address] Performed By: #### 2 276-4, 38846-6 ####[facility] LABCLIA [id number] [address] Iron binding capacity [Mass/Vol] 372 ug/dL Normal 232-386 [facility] Comment on above: Order Comment: Speci men Type: BLOOD SPECIMENOrdering Facility: [facility] Address: [address] [place] [address] Performed By: #### 2 276-4, 90826-3 ####[facility] LABCLIA [id number] [address] [facility] Iron/TIBC [Molar ratio] 5.1 % Low 15.0-57.0 [facility] Comment on above: Order Comment: Speci men Type: BLOOD SPECIMENOrdering Facility: [facility] Address: [address] [place] [address] Performed By: #### 2 276-4, 85037-1 ####[facility] LABIA [id number] [place] [address] [place] Chest PA and Lateralon 06-09 Chest PA and Lateral [facility] Imaging Services [address] [place], [place] [address] Chest PA and Lateral MR#: [id number] Acct: [id number] Name: MARIMAR WANG Rep #: [id number] : 1960 F 64 From: Edgard Flores DO PCP: [facility] Arriola Status: REG CLI Study: Chest PA and Lateral Date of Exam: 06/09/24 Exam# [id number] Ordering Dr: Julio Arriaga NP 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 -C [id number] INDICATION: ABNORMAL CHEST XRAY EXAMINATION/TECHNIQUE: X-RAY - [...] 10:50 EST Reading Location ID and State: [facility] / [place] Tel [phone], Service support , CC: S[facility] Arriaga Pumping Plant Operator: Signed Normal [facility] Brain/Head without Contrasto n 06-06-2024 Brain/Head without Contrast [facility] Imaging Services [address] [place] [address] Brain/Head without Contrast MR#: [id number] Acct: [id number] Name: MARIMAR WANG Rep #: [id number] : 1960 F 64 From: Gaudencio Riggs MD PCP: [facility] Arriola Status: REG ER Study: Brain/Head without Contrast Date of Exam: 04/21 Exam# [id number] Ordering Dr: Gaudencio Ambriz DO [id number] EXAM: CT HEAD WITHOUT INTRAVENOUS CONTRAST CLINICAL [...] Signed: Gaudencio Riggs MD at 4:15 EST , CC: [facility] Arriaga; Gaudencio Ambriz DO Pumping Plant Operator: Signed Normal [facility] Emergency Department Summary on 06-06-2024 Emergency Department Summary [facility] Medical Records Department [address] [place] [address] Emergency Department Summary 06/06/24 MR#: [id number] Acct: [id number] Name: MARIMAR WANG Rep #: [id number] : 1960 64 From: Gaudencio Ambriz DO [...] underlying trauma was brought in for evaluation [facility] Medical History History of Crohn's disease Psoriatic [...] 60 mg PO Q [facility]ENTAL [facility] 12/13/15 03/19/24 History bupropion HCl 150 mg 24 hr tablet, 150 mg PO Q MENTAL HEALTH 11/13/17 03/19/24 History extended release peg 555-hodqtesdslmr-bxjddyo n 1 1 drp OP 4X/DAY DRY [...] 01/09/23 Unknown History gram/dose oral powder (Miralax) lzjimk-pkdxbfsj-qdniugt See Rx Instructions PO .COMPLEX 09/25/23 03/19/24 Rx 36,000-114,000-180,000 unit #300 caps capsule,delay rel (Creon) acetaminophen 500 mg tablet 1,000 mg PO Q6H PRN fever or pain 11/15/23 Unknown History atorvastatin 80 mg tablet 80 mg PO QDAY 11/15/23 Unknown History hydrocortisone 2.5 % topical cream 1 applic [place] BID PRN Crohn's 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 Normal [facility] HIP, UNI W/ Pelvis 2-3 Views on 06-06-2024 HIP, UNI W/ Pelvis 2-3 Views [facility] Imaging Services [address] [place] [address] HIP, UNI W/ Pelvis 2-3 Views MR#: [id number] Acct: [id number] Name: MARIMAR WANG Rep #: [id number] : 1960 F 64 From: Gaudencio Riggs MD PCP: Julio Arriaga NP-C Status: REG ER Study: HIP, UNI W/ Pelvis 2-3 Views Date of Exam: 04/21 Exam# [id number] Ordering Dr: Gaudencio Ambriz DO [id number] EXAM: XR LEFT HIP WITH PELVIS WHEN [...] Signed: Gaudencio Riggs MD at 3:52 EST Reading Location ID and State: [facility] / [place] Tel , Service support , CC: 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-C Julio Arriaga; Gaudencio Ambriz DO Pumping Plant Operator: Signed Normal [facility] Hand Min 3 Viewson 4 Hand Min 3 Views [facility] Imaging Services [address] [place] [address] Hand Min 3 Views MR#: [id number] Acct: [id number] Name: MARIMAR WANG Rep #: [id number] : 1960 F 64 From: Gaudencio Riggs MD PCP: [facility] Arriola Status: REG ER Study: Hand Min 3 Views Date of Exam: 06/06/24 Exam# [id number] Ordering Dr: Gaudencio Ambriz DO [id number] EXAM: XR LEFT HAND COMPLETE, 3 OR [...] Signed: Gaudencio Riggs MD at 4:21 EST Reading Location ID and State: [address] [place] [address] Tel , Service support , CC: [facility] Arriaga; Gaudencio Ambriz DO Pumping Plant Operator: Signed Normal [facility] Lumbar Spine 2 or 3 Viewson 06-06-2024 Lumbar Spine 2 or 3 Views [facility] Imaging Services [address] [place] [address] Lumbar Spine 2 or 3 Views MR#: [id number] Acct: [id number] Name: MARIMAR WANG Rep #: [id number] : 1960 F 64 From: Gaudencio Riggs MD PCP: [facility] Arriola Status: REG ER Study: Lumbar Spine 2 or 3 Views Date of Exam: Exam# [id number] Ordering Dr: Gaudencio Ambriz DO [id number] EXAM: XR LUMBOSACRAL SPINE, 2 OR 3 [...] Riggs MD at 4:14 EST , CC: [facility] Arriaga; Gaudencio Ambriz DO Pumping Plant Operator: Signed Normal [facility] Ribs Uni Min 3V w/PA Cheston 06-06-2024 Ribs Uni Min 3V w/PA Chest [facility] Imaging Services [address] [place] [address] Ribs Uni Min 3V w/PA Chest MR#: [id number] Acct: [id number] Name: MARIMAR WANG Rep #: [id number] : 1960 F 64 From: Karla Roberson PCP: [facility] Arriola Status: REG ER Study: Ribs Uni Min 3V w/PA Chest Date of Exam: 06/06 Exam# [id number] Ordering Dr: Gaudencio Ambriz DO [id number] INDICATION: pain EXAMINATION/TECHNIQUE: X-RAY - XR Ribs [...] 4:43 EST Reading Location ID and State: [facility] / [place] Tel , Service support , CC: 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-C Julio Arriaga; Gaudencio Ambriz DO Pumping Plant Operator: Signed Normal [facility] Spine Cervical without Contr ason 06-06-2024 Spine Cervical without Contras [facility] Imaging Services [address] [place] [address] Spine Cervical without Contras MR#: [id number] Acct: [id number] Name: MARIMAR WANG Rep #: [id number] : 1960 F 64 From: Gaudencio Riggs MD PCP: [facility] Arriola Status: REG ER Study: Spine Cervical without Contras Date of Exam: 08/06/23 Exam# [id number] Ordering Dr: Gaudencio Ambriz DO [id number] EXAM: CT CERVICAL SPINE WITHOUT INTRAVENOUS CONTRAST [...] 4:18 EST Reading Location ID and State: [facility] / [place] Tel , Service support , CC: [facility] Arriaga; Gaudencio Ambriz DO Pumping Plant Operator: Signed Normal [facility] Thoracic Spine 3 Viewson Thoracic Spine 3 Views [facility] Imaging Services [address] [place] [id number] Thoracic Spine 3 Views MR#: [id number] Acct: [id number] Name: MARIMAR WANG Rep #: [id number] : 1960 F 64 From: Gaudencio Riggs MD PCP: [facility] Arriola Status: REG ER Study: Thoracic Spine 3 Views Date of Exam: 06/06/24 Exam# [id number] Ordering Dr: Gaudencio Ambriz DO [id number] EXAM: XR THORACIC SPINE, 3 VIEWS CLINICAL [...] , CC: [facility] Arriaga; Gaudencio Ambriz DO Pumping Plant Operator: Signed [facility]29-[facility] -------- MARIMAR WANG ([id number]) 1960 F Date Time Provider Department 05/29/24 [...] start taking at least 1 tablet daily kdbj-aja-rathfgj. Her protein levels are also low, increase protein in diet. Sarah Pearson PA-C 05/29/24 Candace Alvarenga MA 05/29/2024 4:12 PM Signed Called patient and relayed message. She voiced understanding. Patient states she is unable to take Iron tablets. She states it causes vomiting. She states she received Iron IV through heme/onc in [facility] several years ago. Relayed protein enriched foods to patient. Sarah Pearson PA-C 05/29/2024 4:23 PM Signed If she can remember who she saw- I recommend reaching back out for an appt. Consult placed LIZZIE Cruz Amanda K, PA-C 05/29/2024 4:23 PM Signed Addended by: SARAH PEARSON on: 05/29/2024 04:23 PM Modules accepted: Candace Stephen MA 06/01/2024 11:33 AM Signed Called patient [...] [D50.9] Order(s):CONSULT TO HEMATOLOGY [9014] Order #: [id number]: 1 FUTURE Prescriptions as of 06/01/2024 - [...] 80 mg by mouth once daily. - ogfctj-xwspzwtc-arwmnnu (CREON 36) 36,000-114,000- 180,000 unit delayed release [...] Comments as of 02/06/2017: Herlinda use pharmacy [facility] [place] [address] Problem List As Of Date 05/29/2024 Noted Resolved Fracture of triquetrum of left wrist, closed [S* (more content not included)... Normal [facility] CBC W Auto Differential pane l (Bld)on 05-21-2024 Basophils (Bld) [#/Vol] 0.09 10*3/uL [facility] Basophils/100 WBC (Bld) 1.3 % C [facility] Differential cell count method Nom (Bld) Auto [facility] Eosinophils (Bld) [#/Vol] 0.19 10*3/uL [facility] Eosinophils/100 WBC (Bld) 2.8 % [facility] Erythrocyte distribution width (RBC) [Ratio] 17.1 % High 11.5 - 15.0 % [facility] Hematocrit (Bld) [Volume fraction] 33.5 % Low 36.0 - 46.0 % [facility] Hemoglobin (Bld) [Mass/Vol] 10.1 g/dL Low 11.5 - 15.5 g/dL [facility] Immature granulocytes (Bld) [#/Vol] 0.03 10*3/uL [facility] Immature granulocytes/100 WBC (Bld) 0.4 % [facility] Interpretation and review of laboratory results Abnormal [facility] Lymphocytes (Bld) [#/Vol] 1.23 10*3/uL [facility] Lymphocytes/100 WBC (Bld) 18.2 % [facility] MCH (RBC) [Entitic mass] 24.5 pg Low 26.0 - 34.0 pg [facility] MCHC (RBC) [Mass/Vol] 30.1 g/dL Low 30.5 - 36.0 g/dL [facility] MCV (RBC) [Entitic vol] 81.3 fL 80.0 - 100.0 fL [facility] Monocytes (Bld) [#/Vol] 0.46 10*3/uL [facility] Monocytes/100 WBC (Bld) 6.8 % C [facility] Neutrophils (Bld) [#/Vol] 4.75 10*3/uL [facility] Neutrophils/100 WBC (Bld) 70.5 % [facility] Nucleated RBC (Bld) [#/Vol] [facility] Nucleated RBC/100 WBC (Bld) [Ratio] 0.0 % /100 WBC [facility] Platelet mean volume (Bld) [Entitic vol] 12.3 fL 9.0 - 12.7 fL [facility] Platelets (Bld) [#/Vol] 240 10*3/uL [facility] RBC (Bld) [#/Vol] 4.12 10*6/uL 3.90 - 5.2 0 m/uL [facility] WBC (Bld) [#/Vol] 6.75 10*3/uL [facility] Basophils (Bld) [#/Vol] 0.09 10*3/uL Normal <0.11 [facility] Comment on above: Order Comment: Speci men Type: BLOOD SPECIMEN Ordering Facility: [facility] Address: [address] [place] [address] Performed By: #### 5 7021-8 #### [facility] CLIA [id number] [address] Basophils/100 WBC (Bld) 1.3 % Normal [facility] Comment on above: Order Comment: Speci men Type: BLOOD SPECIMEN Ordering Facility: [facility] Address: [address] [place] [address] Performed By: #### 5 7021-8 #### [facility] CLIA [id number] [address] [facility] Differential cell count method Nom (Bld) Auto Normal [facility] Comment on above: Order Comment: Speci men Type: BLOOD SPECIMEN Ordering Facility: [facility] Address: [address] [place] [address] Performed By: #### 5 7021-8 #### [facility] CLIA [id number] [address] [place] Eosinophils (Bld) [#/Vol] 0.19 10*3/uL Normal <0.46 [facility] Comment on above: Order Comment: Speci men Type: BLOOD SPECIMEN Ordering Facility: [facility] Address: [facility] [place] [address] Performed By: #### 5 7021-8 #### [facility] CLIA [id number] [address] [place] Eosinophils/100 WBC (Bld) 2.8 % Normal [facility] Comment on above: Order Comment: Speci men Type: BLOOD SPECIMEN Ordering Facility: [facility] Address: [address] [place] [address] Performed By: #### 5 7021-8 #### [facility] CLIA [id number] [address] [place] Erythrocyte distribution width (RBC) [Ratio] 17.1 % High 11.5-15.0 [facility] Comment on above: Order Comment: Speci men Type: BLOOD SPECIMEN Ordering Facility: [facility] Address: [facility] [place] [address] Performed By: #### 5 7021-8 #### [facility] CLIA [id number] [address] [place] Hematocrit (Bld) [Volume fraction] 33.5 % Low 36.0-46.0 [facility] Comment on above: Order Comment: Speci men Type: BLOOD SPECIMEN Ordering Facility: [facility] Address: [address] [place] [address] Performed By: #### 5 7021-8 #### [facility] CLIA [id number] [address] [place] Hemoglobin (Bld) [Mass/Vol] 10.1 g/dL Low 11.5-15.5 [facility] Comment on above: Order Comment: Speci men Type: BLOOD SPECIMEN Ordering Facility: [facility] Address: [address] [place] [address] Performed By: #### 5 7021-8 #### [facility] CLIA [id number] [address] [place] Immature granulocytes (Bld) [#/Vol] 0.03 10*3/uL Normal <0.10 [facility] Comment on above: Order Comment: Speci men Type: BLOOD SPECIMEN Ordering Facility: [facility] Address: [address] [place] [address] Performed By: #### 5 7021-8 #### [facility] CLIA [id number] [address] [place] Immature granulocytes/100 WBC (Bld) 0.4 % Normal [facility] Comment on above: Order Comment: Speci men Type: BLOOD SPECIMEN Ordering Facility: [facility] Address: [address] [place] [address] Performed By: #### 5 7021-8 #### [facility] CLIA [id number] 1 [place] [address] [place] Lymphocytes (Bld) [#/Vol] 1.23 10*3/uL Normal 1.00-4.00 [facility] Comment on above: Order Comment: Speci men Type: BLOOD SPECIMEN Ordering Facility: [facility] Address: [address] [place] [address] Performed By: #### 5 7021-8 #### [facility] CLIA [id number] [address] [facility] Lymphocytes/100 WBC (Bld) 18.2 % Normal [facility] Comment on above: Order Comment: Speci men Type: BLOOD SPECIMEN Ordering Facility: [facility] Address: [address] [place] [address] Performed By: #### 5 7021-8 #### [facility] CLIA [id number] [address] [place] MCH (RBC) [Entitic mass] 24.5 pg Low 26.0-34.0 [facility] Comment on above: Order Comment: Speci men Type: BLOOD SPECIMEN Ordering Facility: [facility] Address: [address] [place] [address] Performed By: #### 5 7021-8 #### [facility] CLIA [id number] [address] [place] MCHC (RBC) [Mass/Vol] 30.1 g/dL Low 30.5-36.0 [facility] Comment on above: Order Comment: Speci men Type: BLOOD SPECIMEN Ordering Facility: [facility] Address: [address] [place] [address] Performed By: #### 5 7021-8 #### [facility] CLIA [id number] [address] MCV (RBC) [Entitic vol] 81.3 fL Normal 80.0-100.[address] [facility] Comment on above: Order Comment: Speci men Type: BLOOD SPECIMEN Ordering Facility: [facility] Address: [address] [place] [address] Performed By: #### 5 7021-8 #### [facility] CLIA [id number] [address] [place] Monocytes (Bld) [#/Vol] 0.46 10*3/uL Normal <0.87 [facility] Comment on above: Order Comment: Speci men Type: BLOOD SPECIMEN Ordering Facility: [facility] Address: [address] [place] [address] Performed By: #### 5 7021-8 #### [facility] CLIA [id number] [address] Monocytes/100 WBC (Bld) 6.8 % Normal [facility] Comment on above: Order Comment: Speci men Type: BLOOD SPECIMEN Ordering Facility: [facility] Address: [address] [place] [address] Performed By: #### 5 7021-8 #### [facility] CLIA [id number] [address] Neutrophils (Bld) [#/Vol] 4.75 10*3/uL Normal 1.45-7.50 [facility] Comment on above: Order Comment: Speci men Type: BLOOD SPECIMEN Ordering Facility: [facility] Address: [address] [place] [address] Performed By: #### 5 7021-8 #### [facility] CLIA [id number] [address] [place] Neutrophils/100 WBC (Bld) 70.5 % Normal [facility] Comment on above: Order Comment: Speci men Type: BLOOD SPECIMEN Ordering Facility: [facility] Address: [address] [place] [address] Performed By: #### 5 7021-8 #### [facility] CLIA [id number] [address] [place] Nucleated RBC (Bld) [#/Vol] 10*3/uL Normal <0.01 [facility] Comment on above: Order Comment: Speci men Type: BLOOD SPECIMEN Ordering Facility: [facility] Address: [address] [place] [address] Performed By: #### 5 7021-8 #### [facility] CLIA [id number] [address] [place] Nucleated RBC/100 WBC (Bld) [Ratio] 0.0 /100 WBC Normal [facility] Comment on above: Order Comment: Speci men Type: BLOOD SPECIMEN Ordering Facility: [facility] Address: [address] [place] [address] Performed By: #### 5 7021-8 #### [facility] CLIA [id number] [address] [place] Platelet mean volume (Bld) [Entitic vol] 12.3 fL Normal 9.0-12.7 [facility] Comment on above: Order Comment: Speci men Type: BLOOD SPECIMEN Ordering Facility: [facility] Address: [address] [place] [address] Performed By: #### 5 7021-8 #### [facility] CLIA [id number] [address] [place] Platelets (Bld) [#/Vol] 240 10*3/uL Normal 150-400 [facility] Comment on above: Order Comment: Speci men Type: BLOOD SPECIMEN Ordering Facility: [facility] Address: [address] [place] [address] Performed By: #### 5 7021-8 #### [facility] CLIA [id number] [address] [place] RBC (Bld) [#/Vol] 4.12 10*6/uL Normal 3.90-5.20 [facility] Comment on above: Order Comment: Speci men Type: BLOOD SPECIMEN Ordering Facility: [facility] Address: [address] [place] [address] Performed By: #### 5 7021-8 #### [facility] CLIA [id number] [address] WBC (Bld) [#/Vol] 6.75 10*3/uL Normal 3.70-11.00 [facility] Comment on above: Order Comment: Speci men Type: BLOOD SPECIMEN Ordering Facility: [facility] Address: [address] [place] [address] Performed By: #### 5 7021-8 #### [facility] CLIA [id number] [address] Comprehensive metabolic 2000 panelon 05-21-2024 Albumin [Mass/Vol] 3.7 g/dL Low 3.9-4.9 [facility] Comment on above: Order Comment: Speci men Type: BLOOD SPECIMEN Ordering Facility: [facility] Address: [address] [place] [address] Performed By: #### 2 4323-8 #### [facility] CLIA [id number] [address] ALP [Catalytic activity/Vol] 82 U/L Normal 34-123 [facility] Comment on above: Order Comment: Speci men Type: BLOOD SPECIMEN Ordering Facility: [facility] Address: [address] [place] [address] Performed By: #### 2 4323-8 #### [facility] CLIA [id number] [address] ALT With P-5'-P [Catalytic activity/Vol] 20 U/L Normal 7-38 [facility] Comment on above: Order Comment: Speci men Type: BLOOD SPECIMEN Ordering Facility: [facility] Address: [address] [place] [address] Performed By: #### 2 4323-8 #### [facility] CLIA [id number] [address] Anion gap [Moles/Vol] 11 mmol/L Normal 8-15 [facility] Comment on above: Order Comment: Speci men Type: BLOOD SPECIMEN Ordering Facility: [facility] Address: [address] [place] [address] Performed By: #### 2 4323-8 #### [facility] CLIA [id number] [address] [facility] AST With P-5'-P [Catalytic activity/Vol] 21 U/L Normal 13-35 [facility] Comment on above: Order Comment: Speci men Type: BLOOD SPECIMEN Ordering Facility: [facility] Address: [address] [place] [address] Performed By: #### 2 4323-8 #### [facility] CLIA [id number] [address] [facility] Bilirubin [Mass/Vol] mg/dL Low 0.2-1.3 [facility] Comment on above: Order Comment: Speci men Type: BLOOD SPECIMEN Ordering Facility: [facility] Address: [address] [place] [address] Performed By: #### 2 4323-8 #### [facility] CLIA [id number] [address] Calcium [Mass/Vol] 8.6 mg/dL Normal 8.5-10.2 [facility] Comment on above: Order Comment: Speci men Type: BLOOD SPECIMEN Ordering Facility: [facility] Address: [address] [place] [address] Performed By: #### 2 4323-8 #### [facility] CLIA [id number] [address] [place] Chloride [Moles/Vol] 104 mmol/L Normal 98-107 [facility] Comment on above: Order Comment: Speci men Type: BLOOD SPECIMEN Ordering Facility: [facility] Address: [address] [place] [address] Performed By: #### 2 4323-8 #### [facility] CLIA [id number] [address] [place] CO2 [Moles/Vol] 22 mmol/L Normal 22-30 [facility] Comment on above: Order Comment: Speci men Type: BLOOD SPECIMEN Ordering Facility: [facility] Address: [address] [place] [address] Performed By: #### 2 4323-8 #### [facility] CLIA [id number] [address] Creatinine [Mass/Vol] 0.77 mg/dL Normal 0.58-0.96 [facility] Comment on above: Order Comment: Speci men Type: BLOOD SPECIMEN Ordering Facility: [facility] Address: [address] [place] [address] Performed By: #### 2 4323-8 #### [facility] CLIA [id number] [address] Creatinine and Glomerular filtration rate.predicted panel (S/P/Bld) 86 mL/min/1.73m??? Normal >=60 [facility] Comment on above: Order Comment: Speci men Type: BLOOD SPECIMEN Ordering Facility: [facility] Address: [address] [place] [address] Result Comment: Sonia mated Glomerular Filtration Rate [...] GFR. Performed By: #### 2 4323-8 #### [facility] CLIA [id number] [address] Glucose [Mass/Vol] 166 mg/dL High 74-99 [facility] Comment on above: Order Comment: Speci denys Type: BLOOD SPECIMEN Ordering Facility: [facility] Address: [address] [place] [address] Result Comment: The [place] [employer] (ADA) provides guidance for cutoff [...] Standards of Medical Care in Diabetes 2016, [place]. Diabetes Care. 2016.39(Suppl 1). Performed By: #### 2 4323-8 #### [facility] CLIA [id number] [address] [place] Potassium [Moles/Vol] 4.3 mmol/L Normal 3.7-5.1 [facility] Comment on above: Order Comment: Speci men Type: BLOOD SPECIMEN Ordering Facility: [facility] Address: [address] [place] [address] Performed By: #### 2 432-8 #### [facility] CLIA [id number] 1 [place] [address] [place] Protein [Mass/Vol] 6.1 g/dL Low 6.3-8.0 [facility] Comment on above: Order Comment: Speci men Type: BLOOD SPECIMEN Ordering Facility: [facility] Address: [address] [place] [address] Performed By: #### 2 4323-8 #### [facility] CLIA [id number] [address] [place] [address] [place] Sodium [Moles/Vol] 137 mmol/L Normal 136-144 [facility] Comment on above: Order Comment: Speci men Type: BLOOD SPECIMEN Ordering Facility: [facility] Address: [address] [place] [address] Performed By: #### 2 4323-8 #### [facility] CLIA [id number] [address] [place] [address] [place] Urea nitrogen [Mass/Vol] 12 mg/dL Normal 7-21 [facility] Comment on above: Order Comment: Speci men Type: BLOOD SPECIMEN Ordering Facility: [facility] Address: [facility] [place] [id number] Performed By: #### 2 4323-8 #### [facility] CLIA [id number] 1 [place] [address] [place] Gastroenterology Visit Repor ton 04-27-2024 Gastroenterology Visit Report [facility] [address] [place] [address] OFFICE VISIT Date of Service: 04/27/24 MR#: [id number] Acct: [id number] Name: MARIMAR WANG Rep #: [id number] : 1960 Provider: Andrez Pitts DO Age/Sex: 64/F Location: [facility] Status: Signed Intake Vital Signs 12/13/23 [...] 60 mg PO QHS MENTAL HEALTH 12/13/15 04/27/24 History bupropion HCl 150 mg 24 hr tablet, 150 mg PO QHS MENTAL HEALTH 11/13/17 04/27/24 History extended release peg [id number] n 1 1 drp OP 4X/DAY DRY [...] 01/09/23 04/27/24 History gram/dose oral powder (Miralax) [id number] See Rx Instructions PO .COMPLEX 09/25/23 04/27/24 Rx 36,000-114,000-180,000 unit #300 caps capsule,delay rel (Creon) acetaminophen 500 mg tablet 1,000 mg PO Q6H PRN fever or pain 11/15/23 04/27/24 History atorvastatin 80 mg tablet 80 mg PO QDAY 11/15/23 04/27/24 History hydrocortisone 2.5 % topical cream 1 applic [place] BID PRN Crohn's 11/29/23 04/27/24 Rx with [...] cataract Intermittent (more content not included)... Normal [facility] Abdomen Limitedon 03-25-2024 Abdomen Limited [facility] Services [address] [place] [address] Abdomen Limited MR#: [id number] Acct: [id number] Name: MARIMAR WANG Rep #: [id number] : 1960 F 63 From: Juan Antonio hernandez MD PCP: Julio Arriaga NP-C Status: REG CLI Study: Abdomen Limited Date of Exam: 03/25/24 Exam# [id number] Ordering Dr: Andrez Pitts DO [id number] STUDY: ABDOMINAL ULTRASOUND - RIGHT UPPER QUADRANT [...] , CC: [facility] Arriaga; Andrez Pitts DO [employer]umping [employer]: Signed Normal [facility] CBC W Auto Differential pane l (Bld)on 01-29-2024 Basophils (Bld) [#/Vol] 0.05 10*3/uL [facility] Basophils/100 WBC (Bld) 0.8 % C [facility] Differential cell count method Nom (Bld) Auto [facility] Eosinophils (Bld) [#/Vol] 0.11 10*3/uL [facility] Eosinophils/100 WBC (Bld) 1.7 % [facility] Erythrocyte distribution width (RBC) [Ratio] 16.1 % High 11.5 - 15.0 % [facility] Hematocrit (Bld) [Volume fraction] 33.2 % Low 36.0 - 46.0 % [facility] Hemoglobin (Bld) [Mass/Vol] 10.2 g/dL Low 11.5 - 15.5 g/dL [facility] Immature granulocytes (Bld) [#/Vol] [facility] Immature granulocytes/100 WBC (Bld) 0.2 % [facility] Interpretation and review of laboratory results Abnormal [facility] Lymphocytes (Bld) [#/Vol] 0.95 10*3/uL Low [facility] Lymphocytes/100 WBC (Bld) 15.1 % [facility] MCH (RBC) [Entitic mass] 24.5 pg Low 26.0 - 34.0 pg [facility] MCHC (RBC) [Mass/Vol] 30.7 g/dL 30.5 - 36.0 g/dL [facility] MCV (RBC) [Entitic vol] 79.8 fL Low 80.0 - 100.0 fL [facility] Monocytes (Bld) [#/Vol] 0.59 10*3/uL [facility] Monocytes/100 WBC (Bld) 9.4 % C [facility] Neutrophils (Bld) [#/Vol] 4.60 10*3/uL [facility] Neutrophils/100 WBC (Bld) 72.8 % [facility] Nucleated RBC (Bld) [#/Vol] [facility] Nucleated RBC/100 WBC (Bld) [Ratio] [facility] Platelet mean volume (Bld) [Entitic vol] 10.8 fL 9.0 - 12.7 fL [facility] Platelets (Bld) [#/Vol] 216 10*3/uL [facility] RBC (Bld) [#/Vol] 4.16 10*6/uL 3.90 - 5.2 0 m/uL [facility] WBC (Bld) [#/Vol] 6.31 10*3/uL [facility] Basophils (Bld) [#/Vol] 0.05 10*3/uL Normal <0.11 [facility] Comment on above: Order Comment: Speci men Type: BLOOD SPECIMEN Ordering Facility: [facility] Address: [address] [place] [address] Performed By: #### 5 7021-8 #### [facility] CLIA [id number] [address] [place] [address] [place] Basophils/100 WBC (Bld) 0.8 % Normal [facility] Comment on above: Order Comment: Speci men Type: BLOOD SPECIMEN Ordering Facility: [facility] Address: [address] [place] [address] Performed By: #### 5 7021-8 #### [facility] CLIA [id number] [address] [place] [address] [place] Differential cell count method Nom (Bld) Auto Normal [facility] Comment on above: Order Comment: Speci men Type: BLOOD SPECIMEN Ordering Facility: [facility] Address: [address] [place] [address] Performed By: #### 5 7021-8 #### [facility] CLIA [id number] [address] [place] [address] [place] Eosinophils (Bld) [#/Vol] 0.11 10*3/uL Normal <0.46 [facility] Comment on above: Order Comment: Speci men Type: BLOOD SPECIMEN Ordering Facility: [facility] Address: [address] [place] [address] Performed By: #### 5 7021-8 #### [facility] CLIA [id number] [address] [place] [address] [place] Eosinophils/100 WBC (Bld) 1.7 % Normal [facility] Comment on above: Order Comment: Speci men Type: BLOOD SPECIMEN Ordering Facility: [facility] Address: [address] [place] [address] Performed By: #### 5 7021-8 #### [facility] CLIA [id number] [address] [place] [address] [place] Erythrocyte distribution width (RBC) [Ratio] 16.1 % High 11.5-15.0 [facility] Comment on above: Order Comment: Speci men Type: BLOOD SPECIMEN Ordering Facility: [facility] Address: [address] [place] [address] Performed By: #### 5 7021-8 #### [facility] CLIA [id number] [address] [place], [place] [id number] [place] Hematocrit (Bld) [Volume fraction] 33.2 % Low 36.0-46.0 [facility] Comment on above: Order Comment: Speci men Type: BLOOD SPECIMEN Ordering Facility: [facility] Address: [facility] [place] [address] Performed By: #### 5 7021-8 #### [facility] CLIA [id number] [address] [place], [place] [id number] [place] Hemoglobin (Bld) [Mass/Vol] 10.2 g/dL Low 11.5-15.5 [facility] Comment on above: Order Comment: Speci men Type: BLOOD SPECIMEN Ordering Facility: [facility] Address: [address] [place] [address] Performed By: #### 5 7021-8 #### [facility] CLIA [id number] [address] [place], [place] [id number] [place] Immature granulocytes (Bld) [#/Vol] 10*3/uL Normal <0.10 [facility] Comment on above: Order Comment: Speci men Type: BLOOD SPECIMEN Ordering Facility: [facility] Address: [facility] [place] [address] Performed By: #### 5 7021-8 #### [facility] CLIA [id number] [address] [place], [place] [id number] [place] Immature granulocytes/100 WBC (Bld) 0.2 % Normal [facility] Comment on above: Order Comment: Speci men Type: BLOOD SPECIMEN Ordering Facility: [facility] Address: [facility] [place] [address] Performed By: #### 5 7021-8 #### [facility] CLIA [id number] [address] [place] [address] [place] Lymphocytes (Bld) [#/Vol] 0.95 10*3/uL Low 1.00-4.00 [facility] Comment on above: Order Comment: Speci men Type: BLOOD SPECIMEN Ordering Facility: [facility] Address: [address] [place] [address] Performed By: #### 5 7021-8 #### [facility] CLIA [id number] [address] [place], [place] [id number] [place] Lymphocytes/100 WBC (Bld) 15.1 % Normal [facility] Comment on above: Order Comment: Speci men Type: BLOOD SPECIMEN Ordering Facility: [facility] Address: [address] [place] [address] Performed By: #### [id number] #### [facility] CLIA [id number] [address] [place], [place] [id number] [place] MCH (RBC) [Entitic mass] 24.5 pg Low 26.0-34.0 [facility] Comment on above: Order Comment: Speci men Type: BLOOD SPECIMEN Ordering Facility: [facility] Address: [address] [place] [address] Performed By: #### 5 7021-8 #### [facility] CLIA [id number] [address] [place] [address] [place] MCHC (RBC) [Mass/Vol] 30.7 g/dL Normal 30.5-36.0 [facility] Comment on above: Order Comment: Speci men Type: BLOOD SPECIMEN Ordering Facility: [facility] Address: [address] [place] [address] Performed By: #### 5 7021-8 #### [facility] CLIA [id number] [address] [place] [address] [place] MCV (RBC) [Entitic vol] 79.8 fL Low 80.0-100.[address] [facility] Comment on above: Order Comment: Speci men Type: BLOOD SPECIMEN Ordering Facility: [facility] Address: [address] [place] [address] Performed By: #### 5 7021-8 #### [facility] CLIA [id number] [address] [place] [address] [place] Monocytes (Bld) [#/Vol] 0.59 10*3/uL Normal <0.87 [facility] Comment on above: Order Comment: Speci men Type: BLOOD SPECIMEN Ordering Facility: [facility] Address: [address] [place] [address] Performed By: #### 5 7021-8 #### [facility] CLIA [id number] [address] [place] [address] OF [place] Monocytes/100 WBC (Bld) 9.4 % Normal [facility] Comment on above: Order Comment: Speci men Type: BLOOD SPECIMEN Ordering Facility: [facility] Address: [address] [place] [address] Performed By: #### 5 7021-8 #### [facility] CLIA [id number] [address] [place] [address] [place] Neutrophils (Bld) [#/Vol] 4.60 10*3/uL Normal 1.45-7.50 [facility] Comment on above: Order Comment: Speci men Type: BLOOD SPECIMEN Ordering Facility: [facility] Address: [address] [place] [address] Performed By: #### 5 7021-8 #### [facility] CLIA [id number] [address] [place], [place] [id number] [place] Neutrophils/100 WBC (Bld) 72.8 % Normal [facility] Comment on above: Order Comment: Speci men Type: BLOOD SPECIMEN Ordering Facility: [facility] Address: [address] [place] [address] Performed By: #### 5 7021-8 #### [facility] CLIA [id number] [address] [place] [address] [place] Nucleated RBC (Bld) [#/Vol] Normal [facility] Comment on above: Order Comment: Speci men Type: BLOOD SPECIMEN Ordering Facility: [facility] Address: [address] [place] [address] Performed By: #### 5 7021-8 #### [facility] CLIA [id number] [address] [place] [address] [place] Nucleated RBC/100 WBC (Bld) [Ratio] Normal [facility] Comment on above: Order Comment: Speci men Type: BLOOD SPECIMEN Ordering Facility: [facility] Address: [address] [place] [address] Performed By: #### 5 7021-8 #### [facility] CLIA [id number] [address] [place] [address] [place] Platelet mean volume (Bld) [Entitic vol] 10.8 fL Normal 9.0-12.7 [facility] Comment on above: Order Comment: Speci men Type: BLOOD SPECIMEN Ordering Facility: [facility] Address: [address] [place] [address] Performed By: #### 5 7021-8 #### [facility] CLIA [id number] [address] [place] [address] [place] Platelets (Bld) [#/Vol] 216 10*3/uL Normal 150-400 [facility] Comment on above: Order Comment: Speci men Type: BLOOD SPECIMEN Ordering Facility: [facility] Address: [address] [place] [address] Performed By: #### 5 7021-8 #### [facility] CLIA [id number] [address] [place] [address] [place] RBC (Bld) [#/Vol] 4.16 10*6/uL Normal 3.90-5.20 [facility] Comment on above: Order Comment: Speci men Type: BLOOD SPECIMEN Ordering Facility: [facility] Address: [address] [place] [address] Performed By: #### 5 7021-8 #### [facility] CLIA [id number] [address] [place] [address] [place] WBC (Bld) [#/Vol] 6.31 10*3/uL Normal 3.70-11.00 [facility] Comment on above: Order Comment: Speci men Type: BLOOD SPECIMEN Ordering Facility: [facility] Address: [address] [place] [address] Performed By: #### 5 7021-8 #### [facility] CLIA [id number] [facility] [place] [address] [facility] [place] Comprehensive metabolic 2000 panelon 01-29-2024 Albumin [Mass/Vol] 3.7 g/dL Low 3.9 - 4.9 g/dL [facility] ALP [Catalytic activity/Vol] 92 U/L 34 - 123 U/L [facility] ALT With P-5'-P [Catalytic activity/Vol] 17 U/L 7 - 38 U/L [facility] Anion gap [Moles/Vol] 13 mmol/L 8 - 15 mmol/L [facility] AST With P-5'-P [Catalytic activity/Vol] 27 U/L 13 - 35 U/L [facility] Bilirubin [Mass/Vol] 0.2 mg/dL 0.2 - 1 .3 mg/dL [facility] Calcium [Mass/Vol] 9.0 mg/dL 8.5 - 10. 2 mg/dL [facility] Chloride [Moles/Vol] 103 mmol/L 98 - 10 7 mmol/L [facility] CO2 [Moles/Vol] 21 mmol/L Low 22 - 30 mmol/L [facility] Creatinine [Mass/Vol] 0.82 mg/dL 0.58 - 0.96 mg/dL [facility] GFR/1.73 sq M.predicted among non-blacks MDRD (S/P/Bld) [Vol rate/Area] 80 mL/min/{1.73_m2} - PINF [facility] Comment on above: Estimated Glomerular Filtration [...] [Mass/Vol] 97 mg/dL 74 - 99 mg/dL [facility] Comment on above: The [place] Diabete s Association (ADA) provides guidance for [...] Standards of Medical Care in Diabetes 2016, [place] [employer]. Diabetes Care. 2016.39(Suppl 1). Interpretation and review of laboratory results Abnormal [facility] Potassium [Moles/Vol] 4.3 mmol/L 3.7 - 5.1 mmol/L [facility] Protein [Mass/Vol] 6.5 g/dL 6.3 - 8.0 g/dL [facility] Sodium [Moles/Vol] 137 mmol/L 136 - 144 mmol/L [facility] Urea nitrogen [Mass/Vol] 8 mg/dL 7 - 21 mg/dL [facility] Albumin [Mass/Vol] 3.7 g/dL Low 3.9-4.9 [facility] Comment on above: Order Comment: Mindy mcfarlane Type: BLOOD SPECIMEN Ordering Facility: [facility] Address: [address] [place] [address] Performed By: #### 2 4323-8 #### [facility] CLIA [id number] [address] [place] [address] [place] ALP [Catalytic activity/Vol] 92 U/L Normal 34-123 [facility] Comment on above: Order Comment: Mindy mcfarlane Type: BLOOD SPECIMEN Ordering Facility: [facility] Address: [address] [place] [address] Performed By: #### 2 4323-8 #### [facility] CLIA [id number] [address] [place] [address] [place] ALT With P-5'-P [Catalytic activity/Vol] 17 U/L Normal 7-38 [facility] Comment on above: Order Comment: Speci men Type: BLOOD SPECIMEN Ordering Facility: [facility] Address: [address] [place] [address] Performed By: #### 2 4323-8 #### [facility] CLIA [id number] [address] STATES [place] Anion gap [Moles/Vol] 13 mmol/L Normal 8-15 [facility] Comment on above: Order Comment: Speci men Type: BLOOD SPECIMEN Ordering Facility: [facility] Address: [address] [place] [address] Performed By: #### 2 4323-8 #### [facility] CLIA [id number] [address] STATES OF [facility] AST With P-5'-P [Catalytic activity/Vol] 27 U/L Normal 13-35 [facility] Comment on above: Order Comment: Speci men Type: BLOOD SPECIMEN Ordering Facility: [facility] Address: [address] [place] [address] Performed By: #### 2 4323-8 #### [facility] CLIA [id number] [address] [place] Bilirubin [Mass/Vol] 0.2 mg/dL Normal 0.2-1.3 [facility] Comment on above: Order Comment: Speci men Type: BLOOD SPECIMEN Ordering Facility: [facility] Address: [address] [place] [address] Performed By: #### 2 4323-8 #### [facility] CLIA [id number] [address] [place] Calcium [Mass/Vol] 9.0 mg/dL Normal 8.5-10.2 [facility] Comment on above: Order Comment: Speci men Type: BLOOD SPECIMEN Ordering Facility: [facility] Address: [address] [place] [address] Performed By: #### 2 4323-8 #### [facility] CLIA [id number] [address] [place] Chloride [Moles/Vol] 103 mmol/L Normal 98-107 [facility] Comment on above: Order Comment: Speci men Type: BLOOD SPECIMEN Ordering Facility: [facility] Address: [address] [place] [address] Performed By: #### 2 4323-8 #### [facility] CLIA [id number] [address] [place] CO2 [Moles/Vol] 21 mmol/L Low 22-30 [facility] Comment on above: Order Comment: Speci men Type: BLOOD SPECIMEN Ordering Facility: [facility] Address: [address] [place] [address] Performed By: #### 2 4323-8 #### [facility] CLIA [id number] [address] OF [facility] Creatinine [Mass/Vol] 0.82 mg/dL Normal 0.58-0.96 [facility] Comment on above: Order Comment: Speci men Type: BLOOD SPECIMEN Ordering Facility: [facility] Address: [address] [place] [address] Performed By: #### 2 4323-8 #### [facility] CLIA [id number] [address] Creatinine and Glomerular filtration rate.predicted panel (S/P/Bld) 80 mL/min/1.73m??? Normal >=60 [facility] Comment on above: Order Comment: Speci men Type: BLOOD SPECIMEN Ordering Facility: [facility] Address: [address] [place] [address] Result Comment: Sonia mated Glomerular Filtration Rate [...] GFR. Performed By: #### 2 4323-8 #### [facility] CLIA [id number] [address] [place] [address] [place] Glucose [Mass/Vol] 97 mg/dL Normal 74-99 [facility] Comment on above: Order Comment: Mindy mcfarlane Type: BLOOD SPECIMEN Ordering Facility: [facility] Address: [address] [place] [address] Result Comment: The [place] Diabetes Association (ADA) provides guidance for cutoff [...] Standards of Medical Care in Diabetes 2016, [place] [employer]. Diabetes Care. 2016.39(Suppl 1). Performed By: #### 2 4323-8 #### [facility] CLIA [id number] [address] [place] [address] [place] Potassium [Moles/Vol] 4.3 mmol/L Normal 3.7-5.1 [facility] Comment on above: Order Comment: Mindy mcfarlane Type: BLOOD SPECIMEN Ordering Facility: [facility] Address: [address] [place] [address] Performed By: #### 2 4323-8 #### [facility] CLIA [id number] [address] [place] [address] [place] Protein [Mass/Vol] 6.5 g/dL Normal 6.3-8.0 [facility] Comment on above: Order Comment: Mindy mcfarlane Type: BLOOD SPECIMEN Ordering Facility: [facility] Address: [address] [place] [address] Performed By: #### 2 4323-8 #### [facility] CLIA [id number] [address] Sodium [Moles/Vol] 137 mmol/L Normal 136-144 [facility] Comment on above: Order Comment: Speci men Type: BLOOD SPECIMEN Ordering Facility: [facility] Address: [address] [place] [address] Performed By: #### 2 4323-8 #### [facility] CLIA [id number] [address] Urea nitrogen [Mass/Vol] 8 mg/dL Normal 7-21 [facility] Comment on above: Order Comment: Speci men Type: BLOOD SPECIMEN Ordering Facility: [facility] Address: [address] [place] [address] Performed By: #### 2 4323-8 #### [facility] CLIA [id number] [address] 12-31-2023 CNPN Telephone (RHBATH) -------- MARIMAR WANG ([id number]) 1960 F Date Time Provider Department 12/31/23 [facility] During your visit today, we recorded [...] Fully Assessed Reason for Visit: Patient Question [2996] Visit Diagnoses:High risk medication use [Z79.899] Rheumatoid [...] 80 mg by mouth once daily. - afoszt-yrzcadnq-ubodtgn (CREON 36) 36,000-114,000- 180,000 unit delayed release [...] Comments as of 02/06/2017: Herlinda use pharmacy [facility] [place] [address] Problem List As Of Date 12/31/2023 Noted [...] [K90.9] 03/18/2015 (more content not included)... Normal [facility] PULMONARY FUNCTION STUDYon 0 12-04-[address] [facility] PULMONARY FUNCTION TEST NAME ACCOUNT SEX AGE VISIT DATE ROOM PT MEDICAL REC. # NUMBER TYPE MARIMAR WANG [id number] F 63 10/16/2023 2 L [address]2827 DATE OF : 1960 DICTATING PHYSICIAN: Ernesto [...] Ernesto Carrillo MD 10/24/23 16:59 JOB #: [id number] Transcribed By: am 10/25/23 07:34 Electronically signed by: Mik Carrillo M.D. 12/04/23 14:22 MARIMAR WANG Page 1 of 1 Normal [facility] 25-hydroxyvitamin D3 [Mass/V ol]on 11-20-2023 Interpretation and review of laboratory results Normal [facility] C-REACTIVE PROTEINon 024 CRP [Mass/Vol] mg/dL [facility] mg/dL [facility] CBC W Auto Differential pane l (Bld)on 11-20-2023 Basophils (Bld) [#/Vol] 0.05 10*3/uL [facility] Basophils/100 WBC (Bld) 0.7 % C [facility] Differential cell count method Nom (Bld) Auto [facility] Eosinophils (Bld) [#/Vol] 0.12 10*3/uL [facility] Eosinophils/100 WBC (Bld) 1.7 % [facility] Erythrocyte distribution width (RBC) [Ratio] 14.3 % 11.5 - 15.0 % [facility] Hematocrit (Bld) [Volume fraction] 34.3 % Low 36.0 - 46.0 % [facility] Hemoglobin (Bld) [Mass/Vol] 10.6 g/dL Low 11.5 - 15.5 g/dL [facility] Immature granulocytes (Bld) [#/Vol] [facility] Immature granulocytes/100 WBC (Bld) 0.1 % [facility] Interpretation and review of laboratory results Abnormal [facility] Lymphocytes (Bld) [#/Vol] 1.62 10*3/uL [facility] Lymphocytes/100 WBC (Bld) 23.3 % [facility] MCH (RBC) [Entitic mass] 26.0 pg 26.0 - 34.0 pg [facility] MCHC (RBC) [Mass/Vol] 30.9 g/dL 30.5 - 36.0 g/dL [facility] MCV (RBC) [Entitic vol] 84.3 fL 80.0 - 100.0 fL [facility] Monocytes (Bld) [#/Vol] 0.52 10*3/uL [facility] Monocytes/100 WBC (Bld) 7.5 % C [facility] Neutrophils (Bld) [#/Vol] 4.63 10*3/uL [facility] Neutrophils/100 WBC (Bld) 66.7 % [facility] Nucleated RBC (Bld) [#/Vol] [facility] Nucleated RBC/100 WBC (Bld) [Ratio] [facility] Platelet mean volume (Bld) [Entitic vol] 11.1 fL 9.0 - 12.7 fL [facility] Platelets (Bld) [#/Vol] 244 10*3/uL [facility] RBC (Bld) [#/Vol] 4.07 10*6/uL 3.90 - 5.2 0 m/uL [facility] WBC (Bld) [#/Vol] 6.95 10*3/uL [facility] CRP [Mass/Vol]on 11-20-2023 Interpretation and review of laboratory results Normal [facility] Comprehensive metabolic 2000 panelon 11-20-2023 Albumin [Mass/Vol] 4.0 g/dL 3.9 - 4.9 g/dL [facility] ALP [Catalytic activity/Vol] 95 U/L 34 - 123 U/L [facility] ALT With P-5'-P [Catalytic activity/Vol] 12 U/L 7 - 38 U/L [facility] Anion gap [Moles/Vol] 11 mmol/L 9 - 18 mmol/L [facility] AST With P-5'-P [Catalytic activity/Vol] 20 U/L 13 - 35 U/L [facility] Bilirubin [Mass/Vol] 0.2 mg/dL 0.2 - 1 .3 mg/dL [facility] Calcium [Mass/Vol] 8.9 mg/dL 8.5 - 10. 2 mg/dL [facility] Chloride [Moles/Vol] 103 mmol/L 97 - 10 5 mmol/L [facility] CO2 [Moles/Vol] 23 mmol/L 22 - 30 mmol/L [facility] Creatinine [Mass/Vol] 0.70 mg/dL 0.58 - 0.96 mg/dL [facility] GFR/1.73 sq M.predicted among non-blacks MDRD (S/P/Bld) [Vol rate/Area] 97 mL/min/{1.73_m2} - PINF [facility] Comment on above: Estimated Glomerular Filtration [...] 119 mg/dL High 74 - 99 mg/dL [facility] Comment on above: The [place] Diabete s Association (ADA) provides guidance for [...] Standards of Medical Care in Diabetes 2016, [place] [employer]. Diabetes Care. 2016.39(Suppl 1). Interpretation and review of laboratory results Abnormal [facility] Potassium [Moles/Vol] 3.6 mmol/L Low 3.7 - 5.1 mmol/L [facility] Protein [Mass/Vol] 6.7 g/dL 6.3 - 8.0 g/dL [facility] Sodium [Moles/Vol] 137 mmol/L 136 - 144 mmol/L [facility] Urea nitrogen [Mass/Vol] 9 mg/dL 7 - 21 mg/dL [facility] ESR Westergren method (Bld) [Velocity]on 11-20-2023 ESR (Bld) [Velocity] 20 mm/h [facility] Interpretation and review of laboratory results Normal [facility] No Panel Informationon 11-19 [facility] VITAMIN D 25 HYDROXYon 11-19 25-hydroxyvitamin D3 [Mass/Vol] 62.6 ng/mL 30.0 - PINF ng/mL [facility] Comment on above: Classification of 25 [place] Vitamin D status: Deficiency: <= 20.0 ng/ml. Insufficiency: 21.0-29.0 ng/ml. Sufficiency: >= 30.0 ng/ml. CMP with eGFRon 09-26-2023 /SGPT 17 Normal [facility] Comment on above: Performed By: #### 2 [address]408 #### [place] [id number] AGE 63 years Normal [facility] Comment on above: Performed By: #### 2 85239 #### [address] [address] Albumin [Mass/Vol] 3.0 g/dL Low 3.4 - 5.0 [facility] Comment on above: Performed By: #### 2 87650 #### [place] [id number] Albumin/Globulin [Mass ratio] 0.8 {ratio} Low 0.9 - 1.6 [facility] Comment on above: Performed By: #### 2 85382 #### [facility],[address] [place], [place] [id number] ALK PHOS 81 U/L Normal 46 - 116 [facility] Comment on above: Performed By: #### 2 49156 #### [facility],[address] [place] [address] Anion gap [Moles/Vol] 9 mmol/L Low 10 - 20 [facility] Comment on above: Performed By: #### 2 91187 #### [facility],[address] [place] [address] AST [Catalytic activity/Vol] 20 U/L Normal 13 - 39 [facility] Comment on above: Performed By: #### 2 91009 #### [facility],[address] [place] [address] B/C RATIO 16 ratio Normal 0 - 30 [facility] Comment on above: Performed By: #### 2 46435 #### [facility],[address] [place] [address] Bilirubin [Mass/Vol] 0.3 mg/dL Normal 0.2 - 1.0 [facility] Comment on above: Performed By: #### 2 09792 #### [facility],[address] [place], [place] [id number] Calcium [Mass/Vol] 9.0 mg/dL Normal 8.5 - 10.1 [facility] Comment on above: Performed By: #### 2 73767 #### [facility],[address] [place], [place] [id number] Chloride [Moles/Vol] 106 mmol/L Normal 98 - 107 [facility] Comment on above: Performed By: #### 2 27891 #### [facility],[address] [place], [place] [id number] CMP with eGFR Normal [facility] Comment on above: Result Comment: COMP REHENSIVE METABOLIC PANEL Performed By: #### 2 32506 #### [facility],[address] [place], [place] [id number] CO2 [Moles/Vol] 27.4 mmol/L Normal 21.0 - 32.0 [facility] Comment on above: Performed By: #### 2 00008 #### [facility],[address] [place] [address] Creatinine [Mass/Vol] 0.82 mg/dL Normal 0.55 - 1.02 [facility] Comment on above: Performed By: #### 2 73463 #### [facility],[address] [place] [address] GFR/1.73 sq M.predicted among non-blacks MDRD (S/P/Bld) [Vol rate/Area] mL/min/{1.73_m2} Normal 60 - 999 [facility] Comment on above: Performed By: #### 2 82222 #### [facility],[address] [place] [address] Result Comment: ACCO RDING TO THE NATIONAL KIDNEY DISEASE EDUCATION PROGRAM(NKDE), A NORMAL eGFR IS A VALUE GREATER THAN OR EQUAL TO 60 ML/MIN/1.73 SQ METERS. CHRONIC KIDNEY DISEASE: <60mL/MIN/1.73 SQ METERS KIDNEY FAILURE: <15mL/MIN/1.73 SQ METERS THIS TEST SHOULD ONLY BE USED FOR PATIENTS 18 YEARS OF AGE AND OLDER. Globulin (S) [Mass/Vol] 3.8 g/dL Normal 1.5 - 3.8 [facility] Comment on above: Performed By: #### 2 62863 #### [facility],[address] [place], [place] [id number] Glucose [Mass/Vol] 103 mg/dL Normal 74 - 106 [facility] Comment on above: Performed By: #### 2 97761 #### [facility],[address] [place] [address] Potassium [Moles/Vol] 4.1 mmol/L Normal 3.5 - 5.1 [facility] Comment on above: Performed By: #### 2 05937 #### [facility],[address] [place] [address] Protein [Mass/Vol] 6.8 g/dL Normal 6.4 - 8.2 [facility] Comment on above: Performed By: #### 2 98041 #### [facility],[address] [place], [place] [id number] Sodium [Moles/Vol] 138 mmol/L Normal 136 - 145 [facility] Comment on above: Performed By: #### 2 53714 #### [facility],[address] [place] [address] Urea nitrogen [Mass/Vol] 13 mg/dL Normal 7 - 18 [facility] Comment on above: Performed By: #### 2 01786 #### [facility],[address] [place], [place] [id number] HEMOGLOBIN A1C (POM)on Glucose [Mass/Vol] 111.2 mg/dL High 0.0 - 0.0 [facility] Comment on above: Result Comment: BLDo HEMOGLOBIN A1C REFERENCE RANGESBLDo Suggested Diagnosis HbA1c(%) HbA1C (mmol/mol Diabetic >/=6.5 >/=48 Prediabetes 5.7 - 6.4 39 - 47 Normal <5.7 <39 Performed By: #### 2 15186 #### [facility],[address] [place], [place] [id number] HbA1c (Bld) [Mass fraction] 5.5 % Normal 0.0 - 6.5 [facility] Comment on above: Performed By: #### 2 30540 #### [facility],[address] [place], [place] [id number] LIPID PROFILEon 09-26-2023 Cholesterol [Mass/Vol] 213 mg/dL Normal 0 - 240 [facility] Comment on above: Performed By: #### 2 73542 #### [facility],[address] [place] [address] Cholesterol in HDL [Mass/Vol] 83 mg/dL High 40 - 60 [facility] Comment on above: Performed By: #### 2 87452 #### [facility],[address] [place] [address] Cholesterol in LDL [Mass/Vol] 119 mg/dL Normal 0 - 129 [facility] Comment on above: Performed By: #### 2 78467 #### [facility],[address] [place] [address] Cholesterol.total/Wendy sterol in HDL [Mass ratio] 2.6 {ratio} Normal 0.0 - 5.0 [facility] Comment on above: Performed By: #### 2 22714 #### [facility],[address] [place] [address] Lipid 1996 panel Normal [facility] Comment on above: Result Comment: LIPI D PROFILE Performed By: #### 2 01898 #### [facility],[address] [place] [address] Triglyceride [Mass/Vol] 57 mg/dL Normal 0 - 150 [facility] Comment on above: Performed By: #### 2 09289 #### [facility],[address] [place] [address] MAGNESIUMon 09-26-2023 Magnesium [Mass/Vol] 2.1 mg/dL Normal 1.8 - 2.4 [facility] Comment on above: Performed By: #### 2 36982 #### [facility] [facility],[address] [place] [id number] NT-proBNPon 09-19-2023 Natriuretic peptide B (Bld) [Mass/Vol] 511 pg/mL High 0 - 125 [facility] Comment on above: Performed By: #### [id number] #### [facility],[address] [place] [id number] Giardia lamblia ag stool EIA Ordered By: Andrez Pitts on 09-06-2023 G. lamblia Ag IA Ql (Stl) Negative Negative [facility] Comment on above: Performed at: [facility] - [facility] [address] [id number] Director: Beverley Cleveland MD, Phone: [phone] at: [facility] [id number] [place], [place] [id number] Director: Emmanuel Osorio PhD, Phone: [phone] No Panel InformationOrdered By: Andrez Pitts on 09-06-2023 Miscellaneous Test See comment [facility] Comment on above: TEST RESULTS LIMITSA [id number], Fecal, Qn A, 0.173 mg/g 0.041-0.336 CommentsA: Results of this test are labeled for research purposes only by the assay's financial planner. The performance characteristics of this assay have not been established by the financial planner. The result should not be used for treatment or for diagnostic purposes without confirmation of the diagnosis by anothermedically established diagnostic product or procedure. The performance characteristics were determined by [email or web address]. TESTING PERFORMED AT [facility]. ORIGINAL REPORT ON FILE IN LAB CONTAINS ADDITIONAL TEST SITE INFORMATION. Stool Calprotectin 81 ug/g 0-120 [facility] Comment on above: Concentration Interp retation Follow-Up< 5 - 50 ug/g Normal None>50 -120 ug/g Borderline Re-evaluate in 4-6 weeks >120 ug/g Abnormal Repeat as clinically indicatedPerformed at: - [facility] [address] [id number] Director: Beverley Cleveland MD, Phone: [phone] Ova and parasitesOrdered By: Andrez Pitts on 09-06-2023 Ova and parasites identified LM Nom (Unsp spec) [facility] Stool pancreatic elastase me asurement (mass/mass)Ordered By: Andrez Pitts on 09-06-2023 Elastase.pancreatic (Stl) [Mass/Mass] 76 >200 [facility] Comment on above: Result Units: ug Christina st./gResults verified by repeat testing Severe Pancreatic Insufficiency: <100 Moderate Pancreatic Insufficiency: 100 - 200 Normal: >200 Basophil percentageOrdered B y: Andrez Pitts on 07-25-2023 Basophil percentage < 1.0 mg/dL 0.55-1.02 [facility] No Panel InformationOrdered By: Andrez Pitts on 07-25-2023 Bedside Estimated GFR (eGFR) > 60.0000 mL/min >60 [facility] Chocolate RASTOrdered By: Ra ny Pitts on 07-05-2023 Chocolate IgE Qn (S) <0.10 kU/L Class 0 [facility] Hemoglobin in reticulocytes (mass per reticulocyte)Ordered By: Andrez Pitts on 07-05-2023 Hemoglobin (Reticulocytes) [Entitic mass] 31.7 pg 30-35 [facility] Iron measurement (mass/mass) Ordered By: Andrez Pitts on 07-05-2023 Iron (Unsp spec) [Mass/Mass] 46 ug/dL 50-170 [facility] Laboratory - Miscellaneous t estsOrdered By: Andrez Pitts on 07-05-2023 Service comment (Unsp spec) [Interp] Comment . [facility] Comment on above: Levels of Specific [...] 07-05-2023 Hepatitis A IgM Antibody Negative Negative [facility] Hepatitis B Core IgM Antibody Negative Negative [facility] Hepatitis C Antibody (EIA) Non-Reactive Non Reactive [facility] Hepatitis C Antibody Comment Comment . [facility] Comment on above: Not infected with HC V unless early or acute infection issuspected (which may be delayed in an immunocompromisedindividual), or other evidence exists to indicate HCVinfection. Immature Reticulocyte Fraction 11.20 % 3.00-15.90 [facility] Immunoglobulin E 10 IU/mL 6-495 [facility] Comment on above: Performed at: [address] [id number] Director: Emmanuel Osorio PhD, Phone: [phone] at: [facility] [address] [id number] Director: Beverley Cleveland MD, Phone: [phone] Mussel Allergen IgE Antibody <0.10 kU/L Class 0 [facility] Reticulocyte Count 1.61 % 0.5-1.5 [facility] Shrimp Allergen <0.10 kU/L Class 0 [facility] Total Iron Binding Capacity 311 ug/dL 250-450 [facility] Qualitative QuantiFERON-TB g old in tube testOrdered By: Andrez Pitts on 07-05-2023 M. tuberculosis tuberculin stim IFN-g Ql (Bld) See comment [facility] Comment on above: TEST RESULTS LIMITSQ [...] interferon gamma.Chemiluminescence immunoassay methodology TESTING PERFORMED AT [facility]. ORIGINAL REPORT ON FILE IN LAB CONTAINS [...] interferon gamma.Chemiluminescence immunoassay methodology TESTING PERFORMED AT [facility]. ORIGINAL REPORT ON FILE IN LAB CONTAINS ADDITIONAL TEST SITE INFORMATION. Serum beef IgE antibody assa y (units/volume)Ordered By: Andrez Pitts on 07-05-2023 Beef IgE Qn (S) <0.10 kU/L Class 0 [facility] Serum codfish IgE antibody a ssay (units/volume)Ordered By: Andrez Pitts on 07-05-2023 Codfish IgE Qn (S) <0.10 kU/L Class 0 [facility] Serum corn IgE antibody assa y (units/volume)Ordered By: Andrez Pitts on 07-05-2023 [place] IgE Qn (S) <0.10 kU/L Class 0 [facility] Serum cow milk IgE antibody assay (units/volume)Ordered By: Andrez Pitts on 07-05-2023 Cow milk IgE Qn (S) <0.10 kU/L Class 0 [facility] Serum or plasma C reactive p rotein measurement (mass/volume)Ordered By: Andrez Pitts on 07-05-2023 CRP [Mass/Vol] mg/L 0.0-3.0 [facility] Comment on above: C-Reactive Protein ( CRP) provides useful information for thediagnosis, therapy and monitoring of inflammatory processesand associated diseases. For the evaluation of Relative Riskfor Cardiovascular Disease, a High Sensitivity CRP (HSCRP)should be ordered. Serum or plasma IgA measurem ent (mass/volume)Ordered By: Andrez Pitts on 07-05-2023 IgA [Mass/Vol] 106 mg/dL 87-352 [facility] Serum or plasma IgG measurem ent (mass/volume)Ordered By: Andrez Pitts on 07-05-2023 IgG [Mass/Vol] 967 mg/dL [phone] [facility] Serum or plasma IgM measurem ent (mass/volume)Ordered By: Andrez Pitts on 07-05-2023 IgM [Mass/Vol] 54 mg/dL 26-217 [facility] Serum or plasma ferritin anastacio surement (mass/volume)Ordered By: Andrez Pitts on 07-05-2023 Ferritin [Mass/Vol] 63 ng/mL 8-252 [facility] Serum or plasma hepatitis B virus surface antigen detection by immunoassayOrdered By: Andrez Pitts on 07-05-2023 HBV surface Ag IA Ql Negative Negative [facility] Serum or plasma iron saturat ion measurement (mass fraction)Ordered By: Andrez Pitts on 07-05-2023 Iron saturation [Mass fraction] 14.8 % 15.0-55.0 [facility] Serum peanut IgE antibody as say (units/volume)Ordered By: Andrez Pitts on 07-05-2023 Peanut IgE Qn (S) <0.10 kU/L Class 0 [facility] Serum pork IgE antibody assa y (units/volume)Ordered By: Andrez Pitts on 07-05-2023 Pork IgE Qn (S) <0.10 kU/L Class 0 [facility] Serum salmon IgE antibody as say (units/volume)Ordered By: Andrez Pitts on 07-05-2023 [place] IgE Qn (S) <0.10 kU/L Class 0 [facility] Serum soybean IgE antibody a ssay (units/volume)Ordered By: Andrez Pitts on 07-05-2023 Soybean IgE Qn (S) <0.10 kU/L Class 0 [facility] Serum tuna IgE antibody assa y (units/volume)Ordered By: Andrez Pitts on 07-05-2023 Tuna IgE Qn (S) <0.10 kU/L Class 0 [facility] Serum wheat IgE antibody ass ay (units/volume)Ordered By: Andrez Pitts on 07-05-2023 Wheat IgE Qn (S) <0.10 kU/L Class 0 [facility] Serum whole egg IgE antibody assay (units/volume)Ordered By: Andrez Pitts on 07-05-2023 Whole Egg IgE Qn (S) <0.10 kU/L Class 0 [facility] Comment on above: Performed at: [address] [id number] Director: Beverley Cleveland MD, Phone: [phone] Thin prep Papanicolaou smear with manual screeningOrdered By: Andrez Pitts on 07-05-2023 Thin prep Papanicolaou smear with manual screening Not Reportable [facility] C-REACTIVE PROTEIN (CRP)on 0 04-25-2023 CRP [Mass/Vol] 0.4 mg/dL <0.9 mg/dL [facility] CBC panel Auto (Bld)on 04-25 Erythrocyte distribution width (RBC) [Ratio] 14.0 % 11.5 - 15.0 % [facility] Hematocrit (Bld) [Volume fraction] 38.4 % 36.0 - 46.0 % [facility] Hemoglobin (Bld) [Mass/Vol] 12.0 g/dL 11.5 - 15.5 g/dL [facility] MCH (RBC) [Entitic mass] 27.1 pg 26.0 - 34.0 pg [facility] MCHC (RBC) [Mass/Vol] 31.3 g/dL 30.5 - 36.0 g/dL [facility] MCV (RBC) [Entitic vol] 86.7 fL 80.0 - 100.0 fL [facility] Nucleated RBC (Bld) [#/Vol] <0.01 k/uL [facility] Platelet mean volume (Bld) [Entitic vol] 12.3 fL 9.0 - 12.7 fL [facility] Platelets (Bld) [#/Vol] 263 10*3/uL 150 - 400 k/uL [facility] RBC (Bld) [#/Vol] 4.43 10*6/uL 3.90 - 5.2 0 m/uL [facility] WBC (Bld) [#/Vol] 6.72 10*3/uL 3.70 - 11. 00 k/uL [facility] CREATININE BLDon 04-25-2023 Creatinine [Mass/Vol] 0.80 mg/dL 0.60 - 1.30 mg/dL [facility] Estimated Glomerular Filtration Rate 82 mL/min/1.73m >=60 mL/min/1.73m [facility] Comprehensive metabolic 2000 panelon 04-25-2023 Albumin [Mass/Vol] 4.0 g/dL 3.9 - 4.9 g/dL [facility] ALP [Catalytic activity/Vol] 94 U/L 34 - 123 U/L [facility] ALT With P-5'-P [Catalytic activity/Vol] 9 U/L 7 - 38 U/L [facility] Anion gap [Moles/Vol] 13 mmol/L 9 - 18 mmol/L [facility] AST With P-5'-P [Catalytic activity/Vol] 17 U/L 13 - 35 U/L [facility] Bilirubin [Mass/Vol] 0.2 mg/dL 0.2 - 1 .3 mg/dL [facility] Calcium [Mass/Vol] 9.2 mg/dL 8.5 - 10. 2 mg/dL [facility] Chloride [Moles/Vol] 104 mmol/L 97 - 10 5 mmol/L [facility] CO2 [Moles/Vol] 21 mmol/L Low 22 - 30 mmol/L [facility] Creatinine [Mass/Vol] 0.80 mg/dL 0.58 - 0.96 mg/dL [facility] Estimated Glomerular Filtration Rate 82 mL/min/1.73m >=60 mL/min/1.73m [facility] Glucose [Mass/Vol] 159 mg/dL High 74 - 99 mg/dL [facility] Potassium [Moles/Vol] 4.1 mmol/L 3.7 - 5.1 mmol/L [facility] Protein [Mass/Vol] 6.2 g/dL Low 6.3 - 8.0 g/dL [facility] Sodium [Moles/Vol] 138 mmol/L 136 - 144 mmol/L [facility] Urea nitrogen [Mass/Vol] 9 mg/dL 7 - 21 mg/dL [facility] ESR Westergren method (Bld) [Velocity]on 04-25-2023 ESR (Bld) [Velocity] 26 mm/h High 0 - 20 mm/hr [facility] HBV surface Ab Ql (S)on 03-30 HBV surface Ab Qn (S) [facility] HEP B SURF ABon 04-25-2023 HBV surface Ab Ql (S) Negative [facility] HEP B SURF AG SCRNon 023 HBV surface Ag Ql (S) Non-Reactive Nonreactive [facility] HEPATITIS C ANTIBODY IA WITH CONFIRMATIONon 04-25-2023 HCV Ab Ql (S) Non-Reactive Nonreactive [facility] VITAMIN D 25 HYDROXYon 04-25 25-hydroxyvitamin D3 [Mass/Vol] 89.2 ng/mL >=30.0 ng/mL [facility] Basophil percentageOrdered B y: Michael Rawls on 01-24-2023 Chloride [Moles/Vol] 109 mmol/L 98-107 [facility] Glucose [Mass/Vol] 138 mg/dL 74-106 [facility] Comment on above: Fasting Glucose resu lt greater than or equal to 126 mg/dL suggests DIABETES MELLITUS per A.D.A. criteria. Potassium [Moles/Vol] 4.3 mmol/L 3.5-5.1 [facility] Sodium [Moles/Vol] 135 mmol/L 136-145 [facility] WBC (Bld) [#/Vol] 11.2 10*3/uL 4.4-11.0 [facility] Blood erythrocytes count (nu mber/volume)Ordered By: Michael Rawls on 01-24-2023 RBC (Bld) [#/Vol] 3.40 10*6/uL 4.2-5.4 [facility] Blood hemoglobin measurement (mass/volume)Ordered By: Michael Rawls on 01-24-2023 Hemoglobin (Bld) [Mass/Vol] 9.5 g/dL 12.0-15.0 [facility] Blood platelet mean volumeOr dered By: Michael Rawls on 01-24-2023 Platelet mean volume (Bld) [Entitic vol] 11.4 fL 6.2-12.0 [facility] Determination of erythrocyte mean corpuscular volume (MCV)Ordered By: Michael Rawls on 06-29-2023 MCV (RBC) [Entitic vol] 90.0 fL 81-99 [facility] Hematocrit Auto (Bld) [Volum e fraction]Ordered By: Michael Rawls on 01-24-2023 Hematocrit (Bld) [Volume fraction] 30.6 % 37-47 [facility] Laboratory - Chemistry and C hemistry - challengeOrdered By: Michael Rawls on 01-24-2023 CO2 [Moles/Vol] 23.0 mmol/L 21.0-32.0 [facility] Urea nitrogen/Creatinine [Mass ratio] 12.1 mg/mg 10-20 [facility] Laboratory - Hematology and Cell countsOrdered By: Michael Rawls on 01-24-2023 Erythrocyte distribution width (RBC) [Entitic vol] 41.4 fL 35.1-43.9 [facility] Erythrocyte distribution width (RBC) [Ratio] 12.6 % 11.6-14.6 [facility] MCH (RBC) [Entitic mass] 27.9 pg 27.0-32.0 [facility] MCHC Auto (RBC) [Mass/Vol]Or dered By: Michael Rawls on 01-24-2023 MCHC (RBC) [Mass/Vol] 31.0 g/dL 32-36 [facility] No Panel InformationOrdered By: Michael Rawls on 01-24-2023 Estimated Creatinine Clearance Calc 61.54 ml/min [facility] Estimated GFR (MDRD) Amer 101 mL/min >60 [facility] Comment on above: GFR Calc Estimated GFR (MDRD) Non-Af Amer 84 mL/min >60 [facility] Comment on above: Non- GFR Calc Platelets bldOrdered By: Jef Rawls on 01-24-2023 Platelets (Bld) [#/Vol] 199 10*3/uL 150-450 [facility] Serum or plasma calcium alexis urement (mass/volume)Ordered By: Michael Rawls on 01-24-2023 Calcium [Mass/Vol] 7.8 mg/dL 8.5-10.1 [facility] Serum or plasma creatinine m easurement (mass/volume)Ordered By: Michael Rawls on 01-24-2023 Creatinine [Mass/Vol] 0.74 mg/dL 0.55-1.02 [facility] Comment on above: The validity of the calculated GFR & GFRAA in patients over 70 years has not been determined. Clinical correlation is essential. Serum or plasma urea nitroge n measurement (mass/volume)Ordered By: Michael Rawls on 01-24-2023 Urea nitrogen [Mass/Vol] 9 mg/dL 7-18 [facility] Thin prep Papanicolaou smear with manual screeningOrdered By: Michael Rawls on 01-24-2023 Thin prep Papanicolaou smear with manual screening 3 5-15 [facility] INR in Blood by Coagulation assayOrdered By: Michael Rawls on 01-11-2023 INR Coag (Bld) [Relative time] 1.1 {INR} [facility] Laboratory - Chemistry and C hemistry - challengeOrdered By: Stas Young on 01-11-2023 Magnesium [Mass/Vol] 1.9 mg/dL 1.6-2.6 [facility] Laboratory - CoagulationOrde red By: Michael Rawls on 01-11-2023 aPTT Coag (Bld) [Time] 31.4 s 24.1-36.2 [facility] PT Coag (PPP) [Time] 14.0 s 11.7-14.9 [facility] No Panel InformationOrdered By: Michael Rawls on 01-11-2023 Fructosamine 241 umol/L 0-285 [facility] Comment on above: Published reference interval for apparently healthysubjects between age 20 and 60 is 205 - 285 umol/L and in apoorly controlled diabetic population is 228 - 563 umol/Lwith a mean of 396 umol/L.Performed at: [employer] - [facility] [address] [id number] Director: Emmanuel Osorio PhD, Phone: [phone] Nasal Screen MRSA/MSSA [facility] Whole blood hemoglobin A1c/t otal hemoglobin ratio (mass fraction)Ordered By: Michael Rawls on 01-11-2023 HbA1c (Bld) [Mass fraction] 5.4 % 3.8-5.6 [facility] Comment on above: Normal < 5.7 % Predi abetic 5.7 - 6.4 % Diabetic >or= 6.5 % Please note range changes. No Panel InformationOrdered By: Jaci Warren on 12-05-2022 Stool Calprotectin 57 ug/g 0-120 [facility] Comment on above: Concentration Interp retation Follow-Up<16 - 50 ug/g Normal None>50 -120 ug/g Borderline Re-evaluate in 4-6 weeks >120 ug/g Abnormal Repeat as clinically indicatedPerformed at: [facility] [address] [id number] Director: Beverley Cleveland MD, Phone: [phone] Stool lactoferrin detection by immunoassayOrdered By: Jaci Warren on 12-05-2022 Lactoferrin IA Ql (Stl) [facility] CBC W Auto Differential pane l (Bld)on 10-18-2022 Basophils (Bld) [#/Vol] 0.08 10*3/uL <0.11 k/uL [facility] Basophils/100 WBC (Bld) 1.3 % [facility] Differential cell count method Nom (Bld) Auto [facility] Eosinophils (Bld) [#/Vol] 0.19 10*3/uL <0.46 k/uL [facility] Eosinophils/100 WBC (Bld) 3.2 % [facility] Erythrocyte distribution width (RBC) [Ratio] 13.5 % 11.5 - 15.0 % [facility] Hematocrit (Bld) [Volume fraction] 40.3 % 36.0 - 46.0 % [facility] Hemoglobin (Bld) [Mass/Vol] 12.5 g/dL 11.5 - 15.5 g/dL [facility] Immature granulocytes (Bld) [#/Vol] <0.10 k/uL [facility] Immature granulocytes/100 WBC (Bld) 0.3 % [facility] Lymphocytes (Bld) [#/Vol] 1.57 10*3/uL 1.00 - 4.00 k/uL [facility] Lymphocytes/100 WBC (Bld) 26.3 % [facility] MCH (RBC) [Entitic mass] 28.1 pg 26.0 - 34.0 pg [facility] MCHC (RBC) [Mass/Vol] 31.0 g/dL 30.5 - 36.0 g/dL [facility] MCV (RBC) [Entitic vol] 90.6 fL 80.0 - 100.0 fL [facility] Monocytes (Bld) [#/Vol] 0.55 10*3/uL <0.87 k/uL [facility] Monocytes/100 WBC (Bld) 9.2 % [facility] Neutrophils (Bld) [#/Vol] 3.55 10*3/uL 1.45 - 7.50 k/uL [facility] Neutrophils/100 WBC (Bld) 59.7 % [facility] Nucleated RBC (Bld) [#/Vol] <0.01 k/uL [facility] Nucleated RBC/100 WBC (Bld) [Ratio] 0.0 /100 WBC [facility] Platelet mean volume (Bld) [Entitic vol] 12.0 fL 9.0 - 12.7 fL [facility] Platelets (Bld) [#/Vol] 233 10*3/uL 150 - 400 k/uL [facility] RBC (Bld) [#/Vol] 4.45 10*6/uL 3.90 - 5.2 0 m/uL [facility] WBC (Bld) [#/Vol] 5.96 10*3/uL 3.70 - 11. 00 k/uL [facility] Absolute lymphocyte countOrd ered By: Jaci Warren on 09-19-2022 Lymphocytes Auto (Unsp spec) [#/Vol] 1.24 10*3/uL 0.83-4.51 [facility] Albumin Elph [Mass/Vol]Order ed By: Jaci Warren on 09-19-2022 Albumin [Mass/Vol] 3.5 g/dL 2.9-4.4 [facility] Atypical perinuclear antineu trophil cytoplasmic antibodies measurementOrdered By: Jaci Warren on 09-19-2022 Neutrophil cytoplasmic Ab.perinuclear.atypical IF (S) [Titer] <1:20 titer Neg:<1:20 [facility] Comment on above: The atypical pANCA p attern has been observed in asignificant percentage of patients with ulcerative colitis,primary sclerosing cholangitis and autoimmune hepatitis.Performed at: - [address] [id number] Director: Emmanuel Osorio PhD, Phone: [phone] at: [facility] - [facility] [address] [id number] Director: Beverley Cleveland MD, Phone: [phone] Basophil percentageOrdered B y: Jaci Warren on 09-19-2022 Basophil percentage < 0.2 AI 0.0-0.9 [facility] Basophils/100 WBC (Bld) 0.9 % 0-1 [facility] Bilirubin [Mass/Vol] 0.60 mg/dL 0.20-1.00 [facility] Comment on above: For patients on eltr ombopag therapy, use of Dimension [place] TBIL is not recommended. Chloride [Moles/Vol] 105 mmol/L 98-107 [facility] Eosinophils/100 WBC (Bld) 2.2 % 0-5 [facility] Glucose [Mass/Vol] 99 mg/dL 74-106 [facility] LDH [Catalytic activity/Vol] 227 U/L 84-246 [facility] Neutrophils (Bld) [#/Vol] 4.5 10*3/uL 2.0-7.7 [facility] Neutrophils/100 WBC (Bld) 69.9 % 47-70 [facility] Potassium [Moles/Vol] 4.0 mmol/L 3.5-5.1 [facility] Protein [Mass/Vol] 7.4 g/dL 6.4-8.2 [facility] Sodium [Moles/Vol] 136 mmol/L 136-145 [facility] WBC (Bld) [#/Vol] 6.5 10*3/uL 4.4-11.0 [facility] Blood erythrocytes count (nu mber/volume)Ordered By: Jaci Warren on 09-19-2022 RBC (Bld) [#/Vol] 4.72 10*6/uL 4.2-5.4 [facility] Blood hemoglobin measurement (mass/volume)Ordered By: Jaci Warren on 09-19-2022 Hemoglobin (Bld) [Mass/Vol] 13.2 g/dL 12.0-15.0 [facility] Blood lymphocytes/100 leukoc ytesOrdered By: Jaci Warren on 09-19-2022 Lymphocytes/100 WBC (Bld) 19.1 % 19-41 [facility] Blood monocytes/100 leukocyt esOrdered By: Jaci Warren on 09-19-2022 Monocytes/100 WBC (Bld) 7.4 % 0-10 [facility] Blood platelet mean volumeOr dered By: Jaci Warren on 09-19-2022 Platelet mean volume (Bld) [Entitic vol] 11.9 fL 6.2-12.0 [facility] Determination of erythrocyte mean corpuscular volume (MCV)Ordered By: Jaci Warren on 09-19-2022 MCV (RBC) [Entitic vol] 90.5 fL 81-99 [facility] Erythrocyte sedimentation ra teOrdered By: Jaci Warren on 09-19-2022 ESR (Bld) [Velocity] 29 mm/h 0-30 [facility] Hematocrit Auto (Bld) [Volum e fraction]Ordered By: Jaci Warren on 09-19-2022 Hematocrit (Bld) [Volume fraction] 42.7 % 37-47 [facility] Interpretation of serum or p lasma protein pattern by immunofixation (narrative resultOrdered By: Jaci Warren on 09-19-2022 Protein Fractions Immunofixation Yair [Interp] See comment [facility] Comment on above: noT oBSERVED Laboratory - Chemistry and C hemistry - challengeOrdered By: Jaci Warren on 09-19-2022 ALP [Catalytic activity/Vol] 99 U/L 45-117 [facility] ALT [Catalytic activity/Vol] 16 U/L 13-56 [facility] CO2 [Moles/Vol] 22.0 mmol/L 21.0-32.0 [facility] Urea nitrogen/Creatinine [Mass ratio] 13.4 mg/mg 10-20 [facility] Laboratory - Hematology and Cell countsOrdered By: Jaci Warren on 09-19-2022 Erythrocyte distribution width (RBC) [Entitic vol] 45.1 fL 35.1-43.9 [facility] Erythrocyte distribution width (RBC) [Ratio] 13.5 % 11.6-14.6 [facility] Immature granulocytes/100 WBC (Bld) 0.500 % 0.0-0.9 [facility] Comment on above: IG% - Immature Granu locytes (promyelocytes, myelocytes and metamyelocytes) > 1% indicates that a LEFT SHIFT is Present. MCH (RBC) [Entitic mass] 28.0 pg 27.0-32.0 [facility] Nucleated RBC/100 WBC (Bld) [Ratio] 0 % 0-5 [facility] MCHC Auto (RBC) [Mass/Vol]Or dered By: Jaci Warren on 09-19-2022 MCHC (RBC) [Mass/Vol] 30.9 g/dL 32-36 [facility] No Panel InformationOrdered By: Jaci Warren on 09-19-2022 Addendum Document Comment . [facility] Comment on above: Protein electrophore sis scan will follow via computer,mail, or sod cutter delivery. [employer] B Antibody <0.2 AI 0.0-0.9 [facility] Endomysial IgA Antibody Negative Negative [facility] Estimated GFR (MDRD) Amer 101 mL/min >60 [facility] Comment on above: GFR Calc Estimated GFR (MDRD) Non-Af Amer 83 mL/min >60 [facility] Comment on above: Non- GFR Calc Immunoglobulin E 11 IU/mL 6-495 [facility] Miscellaneous Test See comment [facility] Comment on above: TEST RESULT LIMITSIB D [...] developed and its performance characteristics determined by [employer]. It has not been cleared or approved by the Food and Drug Administration. The FDA has determined that such clearance or approval is not necessary.Atypical pANCA Negative Negative Comments Abnormal Suggestive of Crohn's Disease with the very high risk of aggressive disease behavior(development of strictures or fistulae) ____ [facility] ORIGINAL REPORT ON FILE IN LAB CONTAINS ADDITIONAL TEST SITE INFORMATION. [employer] Antibody 0.3 AI 0.0-0.9 [facility] Platelets bldOrdered By: Daija Warren on 09-19-2022 Platelets (Bld) [#/Vol] 264 10*3/uL 150-450 [facility] Serum DNA double strand anti body assay (units/volume)Ordered By: Jaci Warren on 09-19-2022 DNA double strand Ab Qn (S) [IU]/mL 0-9 [facility] Comment on above: Negative <5 Equivoca l 5 - 9 Positive >9 Serum Claudine-1 antibody assay (u nits/volume)Ordered By: Jaci Warren on 09-19-2022 Claudine-1 extractable nuclear Ab Qn (S) <0.2 AI 0.0-0.9 [facility] Serum Scl-70 extractable nuc lear antibody assay (units/volume)Ordered By: Jaci Warren on 09-19-2022 SCL-70 extractable nuclear Ab Qn (S) <0.2 AI 0.0-0.9 [facility] Serum Valero extractable nucl ear antibody detectionOrdered By: Jaci Warren on 09-19-2022 Valero extractable nuclear Ab Ql (S) <0.2 AI 0.0-0.9 [facility] Serum [id number] measu rement by electrophoresisOrdered By: Jaci Warren on 09-19-2022 Alpha 1 globulin Elph [Mass/Vol] 0.3 g/dL 0.0-0.4 [facility] Alpha 1 globulin Elph [Mass/Vol] 0.9 g/dL 0.4-1.0 [facility] Serum classic neutrophil cyt oplasmic antibody assay (units/volume)Ordered By: Jaci Warren on 09-19-2022 Neutrophil cytoplasmic Ab.classic Qn (S) <1:20 titer Neg:<1:20 [facility] Serum globulin measurement ( mass/volume)Ordered By: Jaci Warren on 09-19-2022 Globulin (S) [Mass/Vol] 3.0 g/dL 2.2-3.9 [facility] Serum or plasma C reactive p rotein measurement (mass/volume)Ordered By: Jaci Warren on 09-19-2022 CRP [Mass/Vol] 5.02 mg/L 0.0-3.0 [facility] Comment on above: C-Reactive Protein ( CRP) provides useful information for thediagnosis, therapy and monitoring of inflammatory processesand associated diseases. For the evaluation of Relative Riskfor Cardiovascular Disease, a High Sensitivity CRP (HSCRP)should be ordered. Serum or plasma IgA measurem ent (mass/volume)Ordered By: Jaci Warren on 09-19-2022 IgA [Mass/Vol] 103 mg/dL 87-352 [facility] Serum or plasma IgG measurem ent (mass/volume)Ordered By: Jaci Warren on 09-19-2022 IgG [Mass/Vol] 916 mg/dL [phone] [facility] Serum or plasma IgM measurem ent (mass/volume)Ordered By: Jaci Warren on 09-19-2022 IgM [Mass/Vol] 48 mg/dL 26-217 [facility] Serum or plasma albumin alexis urement (mass/volume)Ordered By: Jaci Warren on 09-19-2022 Albumin [Mass/Vol] 3.7 g/dL 3.2-5.0 [facility] Serum or plasma albumin/glob ulin mass ratioOrdered By: Jaci Warren on 09-19-2022 Albumin/Globulin [Mass ratio] 1.0 {ratio} 0.9-2.4 [facility] Serum or plasma beta globuli n measurement by electrophoresis (mass/volume)Ordered By: Jaci Warren on 09-19-2022 Beta globulin Elph [Mass/Vol] 0.9 g/dL 0.7-1.3 [facility] Serum or plasma calcium alexis urement (mass/volume)Ordered By: Jaci Warren on 09-19-2022 Calcium [Mass/Vol] 9.3 mg/dL 8.5-10.1 [facility] Serum or plasma creatinine m easurement (mass/volume)Ordered By: Jaci Warren on 09-19-2022 Creatinine [Mass/Vol] 0.75 mg/dL 0.55-1.02 [facility] Comment on above: The validity of the calculated GFR & GFRAA in patients over 70 years has not been determined. Clinical correlation is essential. Serum or plasma gamma globul in measurement by electrophoresis (mass/volume)Ordered By: Jaci Warren on 09-19-2022 Gamma globulin Elph [Mass/Vol] 0.8 g/dL 0.4-1.8 [facility] Serum or plasma immunoelectr ophoresis interpretation (nominal result)Ordered By: Jaci Warren on 09-19-2022 Interpretation IEP [Interp] Comment . [facility] Comment on above: No monoclonality det ected. Serum or plasma urea nitroge n measurement (mass/volume)Ordered By: Jaci Warren on 09-19-2022 Urea nitrogen [Mass/Vol] 10 mg/dL 7-18 [facility] Serum perinuclear neutrophil cytoplasmic antibody titer by immunofluorescenceOrdered By: Jaci Warren on 09-19-2022 Neutrophil cytoplasmic Ab.perinuclear IF (S) [Titer] <1:20 titer Neg:<1:20 [facility] Comment on above: The presence of posi tive fluorescence exhibiting P-ANCA orC-ANCA patterns alone is not specific for the diagnosis ofWegener's Granulomatosis (WG) or microscopic polyangiitis.Decisions about treatment should not be based solely onANCA IFA results. The International ANCA Group Consensusrecommends follow up testing of positive sera with both AZ-3 and MPO-ANCA enzyme immunoassays. As many as 5% serumsamples are positive only by EIA. Ref. AM J Clin Agrlgy5418;111:507-513. Serum tissue transglutaminas e IgA antibody assay (units/volume)Ordered By: Jaci Warren on 09-19-2022 tTG IgA Qn (S) <2 U/mL 0-3 [facility] Comment on above: Negative 0 - 3 Weak Positive 4 - 10 Positive >10 Tissue Transglutaminase (tTG) has been identified as the endomysial antigen. Studies have demonstr- ated that endomysial IgA antibodies have over 99% specificity for gluten sensitive enteropathy. Thin prep Papanicolaou smear with manual screeningOrdered By: Jaci Warren on 09-19-2022 Thin prep Papanicolaou smear with manual screening 21 U/L 15-37 [facility] Thin prep Papanicolaou smear with manual screening 9 5-15 [facility] Thin prep Papanicolaou smear with manual screening 1.2 0.7-1.7 [facility] Total protein bloodOrdered B y: Jacierika Warren on 09-19-2022 Protein [Mass/Vol] 6.5 g/dL 6.0-8.5 [facility] - Microbiology an d Antimicrobial susceptibilityon 09-12-2022 S. pyogenes Ag IA Ql (Unsp spec) Negative [facility] C-REACTIVE PROTEIN (CRP)on 1 09-17-2021 CRP [Mass/Vol] 0.6 mg/dL <0.9 mg/dL [facility] CBC W Auto Differential pane l (Bld)on 07-17-2022 Basophils (Bld) [#/Vol] 0.08 10*3/uL <0.11 k/uL [facility] Basophils/100 WBC (Bld) 1.3 % [facility] Differential cell count method Nom (Bld) Auto [facility] Eosinophils (Bld) [#/Vol] 0.18 10*3/uL <0.46 k/uL [facility] Eosinophils/100 WBC (Bld) 2.9 % [facility] Erythrocyte distribution width (RBC) [Ratio] 16.4 % High 11.5 - 15.0 % [facility] Hematocrit (Bld) [Volume fraction] 41.4 % 36.0 - 46.0 % [facility] Hemoglobin (Bld) [Mass/Vol] 13.0 g/dL 11.5 - 15.5 g/dL [facility] Immature granulocytes (Bld) [#/Vol] 0.03 10*3/uL <0.10 k/uL [facility] Immature granulocytes/100 WBC (Bld) 0.5 % [facility] Lymphocytes (Bld) [#/Vol] 1.35 10*3/uL 1.00 - 4.00 k/uL [facility] Lymphocytes/100 WBC (Bld) 21.8 % [facility] MCH (RBC) [Entitic mass] 27.1 pg 26.0 - 34.0 pg [facility] MCHC (RBC) [Mass/Vol] 31.4 g/dL 30.5 - 36.0 g/dL [facility] MCV (RBC) [Entitic vol] 86.4 fL 80.0 - 100.0 fL [facility] Monocytes (Bld) [#/Vol] 0.52 10*3/uL <0.87 k/uL [facility] Monocytes/100 WBC (Bld) 8.4 % [facility] [#/Vol] 4.03 10*3/uL 1.45 - 7.50 k/uL [facility] Neutrophils/100 WBC (Bld) 65.1 % [facility] Nucleated RBC (Bld) [#/Vol] <0.01 k/uL [facility] Nucleated RBC/100 WBC (Bld) [Ratio] 0.0 /100 WBC [facility] Platelet mean volume (Bld) [Entitic vol] 11.7 fL 9.0 - 12.7 fL [facility] Platelets (Bld) [#/Vol] 238 10*3/uL 150 - 400 k/uL [facility] RBC (Bld) [#/Vol] 4.79 10*6/uL 3.90 - 5.2 0 m/uL [facility] WBC (Bld) [#/Vol] 6.19 10*3/uL 3.70 - 11. 00 k/uL [facility] Comprehensive metabolic 2000 panelon 07-17-2022 Albumin [Mass/Vol] 4.4 g/dL 3.9 - 4.9 g/dL [facility] ALP [Catalytic activity/Vol] 97 U/L 34 - 123 U/L [facility] ALT With P-5'-P [Catalytic activity/Vol] 13 U/L 7 - 38 U/L [facility] Anion gap [Moles/Vol] 12 mmol/L 9 - 18 mmol/L [facility] AST With P-5'-P [Catalytic activity/Vol] 23 U/L 13 - 35 U/L [facility] Bilirubin [Mass/Vol] 0.2 mg/dL 0.2 - 1 .3 mg/dL [facility] Calcium [Mass/Vol] 9.5 mg/dL 8.5 - 10. 2 mg/dL [facility] Chloride [Moles/Vol] 100 mmol/L 97 - 10 5 mmol/L [facility] CO2 [Moles/Vol] 25 mmol/L 22 - 30 mmol/L [facility] Creatinine [Mass/Vol] 0.67 mg/dL 0.58 - 0.96 mg/dL [facility] Estimated Glomerular Filtration Rate 98 mL/min/1.73m >=60 mL/min/1.73m [facility] Glucose [Mass/Vol] 83 mg/dL 74 - 99 mg/dL [facility] Potassium [Moles/Vol] 4.1 mmol/L 3.7 - 5.1 mmol/L [facility] Protein [Mass/Vol] 7.2 g/dL 6.3 - 8.0 g/dL [facility] Sodium [Moles/Vol] 137 mmol/L 136 - 144 mmol/L [facility] Urea nitrogen [Mass/Vol] 8 mg/dL 7 - 21 mg/dL [facility] Laboratory - Microbiology an d Antimicrobial susceptibilityon 07-13-2022 SARS-CoV-2 (COVID-19) RNA CORAL+probe Ql (Unsp spec) Not detected [facility] No Panel Informationon 07-13 Influenza Types A,B Rapid ([facility]) Not detected [facility] DXA-AXIAL SKELETONon 022 [facility] .Auto Diffon 04-04-2022 Basophil, Absolute 0.1 10 3/mcL Normal 0.0-0.2 [facility] ([place] Comment on above: Performed By: #### B MP, ANEU, GFR, ADIFF, CBC #### [address] [address] Basophils/100 WBC (Bld) 1.4 % Normal 0.0-2.5 [facility] ([place] Comment on above: Performed By: #### B MP, ANEU, GFR, ADIFF, CBC #### [address] [address] Eosinophil, Absolute 0.2 10 3/mcL Normal 0.0-0.4 [facility] ([place] Comment on above: Performed By: #### B MP, ANEU, GFR, ADIFF, CBC #### [address] [address] Eosinophils/100 WBC (Bld) 3.7 % Normal 0.0-7.0 [facility] ([place] Comment on above: Performed By: #### B MP, ANEU, GFR, ADIFF, CBC #### [address] [address] Lymphocyte, Absolute 0.9 10 3/mcL Normal 0.8-3.9 [facility] ([place]) Comment on above: Performed By: #### B MP, ANEU, GFR, ADIFF, CBC #### [address] [address] Lymphocytes/100 WBC (Bld) 13.7 % Normal 10.0-50.0 [facility] ([place]) Comment on above: Performed By: #### B MP, ANEU, GFR, ADIFF, CBC #### [address] [address] Monocyte, Absolute 0.6 10 3/mcL Normal 0.2-1.0 [facility] ([place]) Comment on above: Performed By: #### B MP, ANEU, GFR, ADIFF, CBC #### [address] [address] Monocytes/100 WBC (Bld) 10.2 % Normal 1.7-13.0 [facility] ([place] Comment on above: Performed By: #### B MP, ANEU, GFR, ADIFF, CBC #### [address] [address] Neutrophils/100 WBC (Bld) 71.0 % Normal 37.0-80.0 [facility] ([place]) Comment on above: Performed By: #### B MP, ANEU, GFR, ADIFF, CBC #### [address] [address] .NEUABSon 04-04-2022 Neutrophil, Absolute 4.5 10 3/mcL Normal 2.9-6.2 [facility] ([place]) Comment on above: Performed By: #### B MP, ANEU, GFR, ADIFF, CBC #### [address] [address] CBCon 04-04-2022 Erythrocyte distribution width (RBC) [Ratio] 15.2 % High 11.5-14.5 [facility] ([place] Comment on above: Performed By: #### B MP, ANEU, GFR, ADIFF, CBC #### [place] [address] Hematocrit (Bld) [Volume fraction] 40.3 % Normal 37.0-47.0 [facility] ([place] Comment on above: Performed By: #### B MP, ANEU, GFR, ADIFF, CBC #### [place] [address] Hgb 13.5 G/dL Normal 12.0-16.0 [facility] ([place] Comment on above: Performed By: #### B MP, ANEU, GFR, ADIFF, CBC #### [place] [address] MCH (RBC) [Entitic mass] 27.5 pg Normal 27.0-31.2 [facility] ([place] Comment on above: Performed By: #### B MP, ANEU, GFR, ADIFF, CBC #### [place] [address] MCHC 33.5 G/dL Normal 33.0-37.0 [facility] ([place] Comment on above: Performed By: #### B MP, ANEU, GFR, ADIFF, CBC #### [place] [address] MCV (RBC) [Entitic vol] 82.1 fL Normal 80.0-94.0 [facility] ([place] Comment on above: Performed By: #### B MP, ANEU, GFR, ADIFF, CBC #### [place] [address] Platelet 192 10 3/mcL Normal 130-400 [facility] ([place] Comment on above: Performed By: #### B MP, ANEU, GFR, ADIFF, CBC #### [place] [address] Platelet mean volume (Bld) [Entitic vol] 9.7 fL Normal 7.4-10.4 [facility] ([place] Comment on above: Performed By: #### B MP, ANEU, GFR, ADIFF, CBC #### [place] [address] RBC 4.91 10 6/mcL Normal 4.20-5.40 [facility] ([place] Comment on above: Performed By: #### B MP, ANEU, GFR, ADIFF, CBC #### [place] [address] WBC 6.3 10 3/mcL Normal 4.6-10.8 [facility] ([place] Comment on above: Performed By: #### B MP, ANEU, GFR, ADIFF, CBC #### [place] [address] CRPon 04-04-2022 CRP [Mass/Vol] mg/L Normal 0.0-0.9 [facility] ([place] Comment on above: Performed By: #### B MP, ANEU, GFR, ADIFF, CBC #### [place] [address] ESRon 04-04-2022 Erythrocyte Sed Rate 19 mm/hr Normal 0-30 [facility] ([place] Comment on above: Performed By: #### B MP, ANEU, GFR, ADIFF, CBC #### [place] [address] NM BONE IMAGING WHOLE BODYon 03-29-2022 NM [...] Sign Date: 03/29/2022 3:10:43 PM [facility] BONE IMAGING WHOLE BODYon 03-20-2022 DE BONE IMAGING WHOLE BODY ORIGINAL EXAMINATION: WHOLE [...] Sign Date: 03/20/2022 6:05:15 PM Ordering Provider: BELLA Prabhakar [facility] ([place] C-REACTIVE PROTEIN (CRP)on 0 03-05-2022 CRP [Mass/Vol] 0.3 mg/dL <0.9 mg/dL [facility] CBC W Auto Differential pane l (Bld)on 03-05-2022 Abs Immature Gran <0.10 k/uL [facility] Basophils (Bld) [#/Vol] 0.11 10*3/uL High <0.11 k/uL [facility] Basophils/100 WBC (Bld) 1.8 % C [facility] Differential cell count method Nom (Bld) Auto [facility] Eosinophils (Bld) [#/Vol] 0.30 10*3/uL <0.46 k/uL [facility] Eosinophils/100 WBC (Bld) 4.8 % [facility] Erythrocyte distribution width (RBC) [Ratio] 15.2 % High 11.5 - 15.0 % [facility] Hematocrit (Bld) [Volume fraction] 40.0 % 36.0 - 46.0 % [facility] Hemoglobin (Bld) [Mass/Vol] 12.4 g/dL 11.5 - 15.5 g/dL [facility] Immature Gran % 0.3 % [facility] Lymphocytes (Bld) [#/Vol] 1.39 10*3/uL 1.00 - 4.00 k/uL [facility] Lymphocytes/100 WBC (Bld) 22.2 % [facility] MCH (RBC) [Entitic mass] 26.7 pg 26.0 - 34.0 pg [facility] MCHC (RBC) [Mass/Vol] 31.0 g/dL 30.5 - 36.0 g/dL [facility] MCV (RBC) [Entitic vol] 86.2 fL 80.0 - 100.0 fL [facility] Monocytes (Bld) [#/Vol] 0.55 10*3/uL <0.87 k/uL [facility] Monocytes/100 WBC (Bld) 8.8 % C [facility] Neutrophils (Bld) [#/Vol] 3.88 10*3/uL 1.45 - 7.50 k/uL [facility] Neutrophils/100 WBC (Bld) 62.1 % [facility] Nucleated RBC (Bld) [#/Vol] <0.01 k/uL [facility] Nucleated RBC/100 WBC (Bld) [Ratio] 0.0 /100 WBC [facility] Platelet mean volume (Bld) [Entitic vol] 11.9 fL 9.0 - 12.7 fL [facility] Platelets (Bld) [#/Vol] 205 10*3/uL 150 - 400 k/uL [facility] RBC (Bld) [#/Vol] 4.64 10*6/uL 3.90 - 5.2 0 m/uL [facility] WBC (Bld) [#/Vol] 6.25 10*3/uL 3.70 - 11. 00 k/uL [facility] Comprehensive metabolic 2000 panelon 03-05-2022 Albumin [Mass/Vol] 4.2 g/dL 3.9 - 4.9 g/dL [facility] ALP [Catalytic activity/Vol] 98 U/L 34 - 123 U/L [facility] ALT With P-5'-P [Catalytic activity/Vol] 12 U/L 7 - 38 U/L [facility] Anion gap [Moles/Vol] 10 mmol/L 9 - 18 mmol/L [facility] AST With P-5'-P [Catalytic activity/Vol] 22 U/L 13 - 35 U/L [facility] Bilirubin [Mass/Vol] 0.2 mg/dL 0.2 - 1 .3 mg/dL [facility] Calcium [Mass/Vol] 8.8 mg/dL 8.5 - 10. 2 mg/dL [facility] Chloride [Moles/Vol] 105 mmol/L 97 - 10 5 mmol/L [facility] CO2 [Moles/Vol] 23 mmol/L 22 - 30 mmol/L [facility] Creatinine [Mass/Vol] 0.66 mg/dL 0.58 - 0.96 mg/dL [facility] Estimated Glomerular Filtration Rate 99 mL/min/1.73m >=60 mL/min/1.73m [facility] Glucose [Mass/Vol] 88 mg/dL 74 - 99 mg/dL [facility] Potassium [Moles/Vol] 3.8 mmol/L 3.7 - 5.1 mmol/L [facility] Protein [Mass/Vol] 6.7 g/dL 6.3 - 8.0 g/dL [facility] Sodium [Moles/Vol] 138 mmol/L 136 - 144 mmol/L [facility] Urea nitrogen [Mass/Vol] 9 mg/dL 7 - 21 mg/dL [facility] Final Surgical Pathology Rep natalio 09-01-2021 Final Surgical Pathology Report . Pathology Reports Accession: Collected Date/Time: Received Date/Time: Pathologist: [id number] 08/29/2021 16:24 EST 08/30/2021 07:37 EST DO [...] Electronically Signed by Pathology Report verified by [facility] Electronically signed by JOAN BONILLA DO Sign out Date: 09/01/2021 08:04 Performing Lab: [id number] [place] [address] Normal [facility] ([place] .Auto Diffon 08-31-2021 Basophil, Absolute 0.10 10 3/mcL Normal 0.00-0.27 [facility] ([place] Comment on above: Performed By: #### B MP, ANEU, GFR, ADIFF, CBC #### [address] [address] Basophils/100 WBC (Bld) 0.7 % Normal 0.0-2.5 [facility] ([place] Comment on above: Performed By: #### B MP, ANEU, GFR, ADIFF, CBC #### [address] [address] Eosinophil, Absolute 0.10 10 3/mcL Normal 0.00-0.65 [facility] ([place] Comment on above: Performed By: #### B MP, ANEU, GFR, ADIFF, CBC #### [address] [address] Eosinophils/100 WBC (Bld) 1.2 % Normal 0.0-6.0 [facility] ([place] Comment on above: Performed By: #### B MP, ANEU, GFR, ADIFF, CBC #### [address] [address] Lymphocyte, Absolute 0.80 10 3/mcL Low 0.90-4.32 [facility] ([place] Comment on above: Performed By: #### B MP, ANEU, GFR, ADIFF, CBC #### [address] [address] Lymphocytes/100 WBC (Bld) 8.5 % Low 20.0-40.0 [facility] ([place] Comment on above: Performed By: #### B MP, ANEU, GFR, ADIFF, CBC #### [address] [address] Monocyte, Absolute 1.00 10 3/mcL Normal 0.09-1.40 [facility] ([place] Comment on above: Performed By: #### B MP, ANEU, GFR, ADIFF, CBC #### [address] [address] Monocytes/100 WBC (Bld) 10.3 % Normal 2.0-13.0 [facility] ([place] Comment on above: Performed By: #### B MP, ANEU, GFR, ADIFF, CBC #### [address] [address] Neutrophils/100 WBC (Bld) 79.3 % High 50.0-75.0 [facility] ([place] Comment on above: Performed By: #### B MP, ANEU, GFR, ADIFF, CBC #### [address] [address] .GFRon 08-31-2021 GFR >60 Normal [facility] ([place] Comment on above: Result Comment: GFR Population [...] B MP, ANEU, GFR, ADIFF, CBC #### [address] [address] GFR Non- >60 Normal [facility] ([place] Comment on above: Result Comment: GFR Population [...] B MP, ANEU, GFR, ADIFF, CBC #### [address] [address] .NEUABSon 08-31-2021 Neutrophil, Absolute 7.40 10 3/mcL Normal 2.25-8.10 [facility] ([place] Comment on above: Performed By: #### B MP, ANEU, GFR, ADIFF, CBC #### [address] [address] BMPon 08-31-2021 BUN/Creatinine Ratio 18.4 ratio Normal 10.0-22.0 [facility] ([place] Comment on above: Performed By: #### B MP, ANEU, GFR, ADIFF, CBC #### [address] [address] Calcium [Mass/Vol] 9.2 mg/dL Normal 8.7-10.4 [facility] ([place] Comment on above: Result Comment: No te - New Reference Range in effect 20 Performed By: #### B MP, ANEU, GFR, ADIFF, CBC #### [address] [address] Chloride [Moles/Vol] 106 mmol/L Normal 98-110 [facility] ([place] Comment on above: Performed By: #### B MP, ANEU, GFR, ADIFF, CBC #### [address] [address] CO2 [Moles/Vol] 24 mmol/L Normal 22-32 [facility] ([place] Comment on above: Performed By: #### B MP, ANEU, GFR, ADIFF, CBC #### [place] [id number] Creatinine [Mass/Vol] 0.76 mg/dL Normal 0.50-1.20 [facility] ([place] Comment on above: Performed By: #### B MP, ANEU, GFR, ADIFF, CBC #### [address] [address] Electrolyte Balance 4.0 mEq/L Normal 4.0-15.0 [facility] ([place] Comment on above: Performed By: #### B MP, ANEU, GFR, ADIFF, CBC #### [address] [address] Glucose [Mass/Vol] 123 mg/dL High 82-115 [facility] ([place] Comment on above: Performed By: #### B MP, ANEU, GFR, ADIFF, CBC #### [address] [address] Potassium [Moles/Vol] 4.0 mmol/L Normal 3.5-5.0 [facility] ([place] Comment on above: Result Comment: Spec imen slightly hemolyzed. Performed By: #### B MP, ANEU, GFR, ADIFF, CBC #### [place] [address] Sodium [Moles/Vol] 134 mmol/L Low 136-145 [facility] ([place] Comment on above: Performed By: #### B MP, ANEU, GFR, ADIFF, CBC #### [place] [address] Urea nitrogen [Mass/Vol] 14.0 mg/dL Normal 8.0-22.0 [facility] ([place] Comment on above: Performed By: #### B MP, ANEU, GFR, ADIFF, CBC #### [place] [address] CBCon 08-31-2021 Erythrocyte distribution width (RBC) [Ratio] 14.2 % Normal 11.5-15.5 [facility] ([place] Comment on above: Performed By: #### B MP, ANEU, GFR, ADIFF, CBC #### [place] [address] Hematocrit (Bld) [Volume fraction] 32.4 % Low 34.0-46.0 [facility] ([place] Comment on above: Performed By: #### B MP, ANEU, GFR, ADIFF, CBC #### [place] [address] Hgb 10.7 G/dL Low 12.0-16.0 [facility] ([place] Comment on above: Performed By: #### B MP, ANEU, GFR, ADIFF, CBC #### [place] [address] MCH (RBC) [Entitic mass] 28.0 pg Normal 27.0-33.0 [facility] ([place] Comment on above: Performed By: #### B MP, ANEU, GFR, ADIFF, CBC #### [place] [address] MCHC 33.1 G/dL Normal 32.0-36.0 [facility] ([place] Comment on above: Performed By: #### B MP, ANEU, GFR, ADIFF, CBC #### [place] [address] MCV (RBC) [Entitic vol] 84.6 fL Normal 80.0-99.0 [facility] ([place] Comment on above: Performed By: #### B MP, ANEU, GFR, ADIFF, CBC #### [place] [address] Platelet 170 10 3/mcL Normal 150-450 [facility] [facility], [facility] [place] Comment on above: Performed By: #### B MP, ANEU, GFR, ADIFF, CBC #### [place] [address] Platelet mean volume (Bld) [Entitic vol] 9.5 fL Normal 6.6-10.5 Formerly [facility], [facility] ([place] Comment on above: Performed By: #### B MP, ANEU, GFR, ADIFF, CBC #### [place] [address] RBC 3.83 10 6/mcL Low 4.10-5.30 Formerly [facility], [facility] ([place] Comment on above: Performed By: #### B MP, ANEU, GFR, ADIFF, CBC #### [place] [address] WBC 9.30 10 3/mcL Normal 4.50-10.80 [facility]ly [facility], [facility] ([place] Comment on above: Performed By: #### B MP, ANEU, GFR, ADIFF, CBC #### [place] [address] CVFLURVon 08-31-2021 Date of Onset [id number] Invalid Interpretation Code [facility], [facility] ([place] Comment on above: Performed By: #### C VFLURV #### [place] [address] 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 Normal [facility] [place] Comment on above: Performed By: #### C VFLURV #### [place] [address] First Test Unknown Normal [facility], [facility] [place] Comment on above: Performed By: #### C VFLURV #### [place] [address] FLU A PCR Negative Normal Negative [facility], [facility] [place] Comment on above: Result Comment: [place] [id number] Performed By: #### C VFLURV #### [place] [address] FLU B PCR Negative Normal Negative [facility], [facility] ([place] Comment on above: Result Comment: Note [place] [id number] Performed By: #### C VFLURV #### [place] [address] Hospitalized Yes [facility] [place] Comment on above: Performed By: #### C VFLURV #### [place] [address] ICU No [facility] [place] Comment on above: Performed By: #### C VFLURV #### [place] [address] Not [facility] [place] Comment on above: Performed By: #### C VFLURV #### [place] [address] Resides in Congregate Care Setting Unknown [facility] [place] Comment on above: Performed By: #### C VFLURV #### [place] [address] RSV PCR Negative Normal Negative [facility], [facility] [place] Comment on above: Result Comment: [place] [id number] Performed By: #### C VFLURV #### [place] [address] SARS-CoV-2 (COVID-19) RNA CORAL+probe Ql (Unsp spec) Negative Normal Negative [facility] [place] Comment on above: Result Comment: [place] [id number] This test has been authorized by FDA [...] results. 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 (08/31/21 4:36 PM) Invalid Interpretation Code AH Auto Viro/Sero SS First Test Unknown (08/31/21 4:36 PM) Invalid Interpretation Code AH Auto Viro/Sero SS FLU A PCR Negative 4 (08/31/21 4:36 PM) Invalid Interpretation Code Negative Auto Viro/Sero SS Comment on above: Result Comment: [place] [id number] FLU B PCR Negative 5 (08/31/21 4:36 PM) Invalid Interpretation Code Negative AH Auto Viro/Sero SS Comment on above: Result Comment: [place] s [id number] Hospitalized Yes (08/31/21 4:36 PM) Invalid Interpretation [...] Comment on above: Result Comment: Note s [id number] SARS-CoV-2 (COVID-19) RNA CORAL+probe Ql (Unsp spec) Negative 3 (08/31/21 4:36 PM) Invalid Interpretation Code Negative AH Auto Viro/Sero SS Comment on above: Result Comment: [place] [id number] Symptomatic as Defined by CDC Unknown (08/31/21 [...] - 110 mEq/L ADM SS CO2 [Moles/Vol] 24 mmol/L Invalid [...] (S/P/Bld) [Vol rate/Area] ml/min/1.73sqm Invalid Interpretation Code AH Chemistry S GFR/1.73 sq M.predicted among non-blacks MDRD (S/P/Bld) [Vol rate/Area] ml/min/1.73sqm Invalid Interpretation Code Chemistry S Glucose [Mass/Vol] 123 mg/dL Invalid Interpretation Code 82 - 115 mg/dL AH ADM SS Hematocrit (Bld) [Volume fraction] 32.4 % Invalid Interpretation Code 34.0 - 46.0 % AH Remisol SS Hemoglobin (Bld) [Mass/Vol] 10.7 G/dL Invalid Interpretation Code 12.0 - 16.0 G/dL AH Remisol SS Lymphocytes (Bld) [#/Vol] 0.80 103/mcL Invalid Interpretation Code 0.90 - 4.32 10^3/mcL AH Remisol SS Lymphocytes/100 WBC (Bld) 8.5 % Invalid Interpretation Code 20.0 - 40.0 % AH Remisol SS MCH (RBC) [Entitic mass] 28.0 pg Invalid Interpretation Code 27.0 - 33.0 pg AH Remisol SS MCHC (RBC) [Mass/Vol] 33.1 G/dL [...] Invalid Interpretation Code 136 - 145 mEq/L ADM SS Urea nitrogen [Mass/Vol] 14.0 mg/dL Invalid Interpretation Code 8.0 - 22.0 mg/dL ADM SS Urea nitrogen/Creatinine [Mass ratio] 18.4 ratio Invalid Interpretation Code 10.0 - 22.0 ratio ADM SS WBC (Bld) [#/Vol] 9.30 103/mcL Invalid Interpretation Code 4.50 - 10.80 10^3/mcL Remisol SS .Auto Diffon 08-30-2021 Basophil, Absolute 0.00 10 3/mcL Normal 0.00-0.27 Formerly [facility], [facility] ([place]) Comment on above: Performed By: #### B MP, ANEU, GFR, ADIFF, CBC #### [address] [address] Basophils/100 WBC (Bld) 0.2 % Normal 0.0-2.5 A [facility] [place] Comment on above: Performed By: #### B MP, ANEU, GFR, ADIFF, CBC #### [address] [address] Eosinophil, Absolute 0.00 10 3/mcL Normal 0.00-0.65 [facility] [place] Comment on above: Performed By: #### B MP, ANEU, GFR, ADIFF, CBC #### [address] [address] Eosinophils/100 WBC (Bld) 0.0 % Normal 0.0-6.0 [facility]ly [facility], [facility] [place] Comment on above: Performed By: #### B MP, ANEU, GFR, ADIFF, CBC #### [address] [address] Lymphocyte, Absolute 0.70 10 3/mcL Low 0.90-4.32 [facility] [place] Comment on above: Performed By: #### B MP, ANEU, GFR, ADIFF, CBC #### [address] [address] Lymphocytes/100 WBC (Bld) 7.2 % Low 20.0-40.0 [facility], [facility] [place] Comment on above: Performed By: #### B MP, ANEU, GFR, ADIFF, CBC #### [address] [address] Monocyte, Absolute 1.10 10 3/mcL Normal 0.09-1.40 [facility], [facility] ([place] Comment on above: Performed By: #### B MP, ANEU, GFR, ADIFF, CBC #### [address] [address] Monocytes/100 WBC (Bld) 11.6 % Normal 2.0-13.0 [facility] [place] Comment on above: Performed By: #### B MP, ANEU, GFR, ADIFF, CBC #### [address] [address] Neutrophils/100 WBC (Bld) 81.0 % High 50.0-75.0 [facility], [facility] [place] Comment on above: Performed By: #### B MP, ANEU, GFR, ADIFF, CBC #### [address] [address] .GFRon 08-30-2021 GFR >60 Normal [facility] ([place] Comment on above: Result Comment: GFR Population [...] B MP, ANEU, GFR, ADIFF, CBC #### [address] [address] GFR Non- >60 Normal [facility], [facility] ([place] Comment on above: Result Comment: GFR Population [...] B MP, ANEU, GFR, ADIFF, CBC #### [address] [address] .NEUABSon 08-30-2021 Neutrophil, Absolute 7.50 10 3/mcL Normal 2.25-8.10 [facility] [place] Comment on above: Performed By: #### B MP, ANEU, GFR, ADIFF, CBC #### [address] [address] BMPon 08-30-2021 BUN/Creatinine Ratio 16.7 ratio Normal 10.0-22.0 [facility] ([place] Comment on above: Performed By: #### B MP, ANEU, GFR, ADIFF, CBC #### [address] [address] Calcium [Mass/Vol] 8.4 mg/dL Low 8.7-10.4 [facility] ([place] Comment on above: Result Comment: No te - New Reference Range in effect 20 Performed By: #### B MP, ANEU, GFR, ADIFF, CBC #### [address] [address] Chloride [Moles/Vol] 111 mmol/L High 98-110 [facility] ([place] Comment on above: Performed By: #### B MP, ANEU, GFR, ADIFF, CBC #### [address] [address] CO2 [Moles/Vol] 26 mmol/L Normal 22-32 [facility], [facility] ([place] Comment on above: Performed By: #### B MP, ANEU, GFR, ADIFF, CBC #### [place] [address] Creatinine [Mass/Vol] 0.54 mg/dL Normal 0.50-1.20 [facility], [facility] ([place] Comment on above: Performed By: #### B MP, ANEU, GFR, ADIFF, CBC #### [place] [address] Electrolyte Balance 0.0 mEq/L Low 4.0-15.0 [facility] ([place]) Comment on above: Performed By: #### B MP, ANEU, GFR, ADIFF, CBC #### [place] [address] Glucose [Mass/Vol] 106 mg/dL Normal 82-115 [facility] ([place] Comment on above: Performed By: #### B MP, ANEU, GFR, ADIFF, CBC #### [place] [address] Potassium [Moles/Vol] 4.0 mmol/L Normal 3.5-5.0 [facility], [facility] ([place] Comment on above: Performed By: #### B MP, ANEU, GFR, ADIFF, CBC #### [place] [address] Sodium [Moles/Vol] 137 mmol/L Normal 136-145 [facility] ([place] Comment on above: Performed By: #### B MP, ANEU, GFR, ADIFF, CBC #### [place] [address] Urea nitrogen [Mass/Vol] 9.0 mg/dL Normal 8.0-22.0 [facility], [facility] ([place] Comment on above: Performed By: #### B MP, ANEU, GFR, ADIFF, CBC #### [place] [address] CBCon 08-30-2021 Erythrocyte distribution width (RBC) [Ratio] 13.9 % Normal 11.5-15.5 [facility], [facility] ([place] Comment on above: Performed By: #### B MP, ANEU, GFR, ADIFF, CBC #### [place] [id number] Hematocrit (Bld) [Volume fraction] 35.0 % Normal 34.0-46.0 [facility], [facility] ([place] Comment on above: Performed By: #### B MP, ANEU, GFR, ADIFF, CBC #### [place] [address] Hgb 11.5 G/dL Low 12.0-16.0 [facility], [facility] [place] Comment on above: Performed By: #### B MP, ANEU, GFR, ADIFF, CBC #### [place] [address] MCH (RBC) [Entitic mass] 27.8 pg Normal 27.0-33.0 [facility], [facility] ([place] Comment on above: Performed By: #### B MP, ANEU, GFR, ADIFF, CBC #### [place] [address] MCHC 32.7 G/dL Normal 32.0-36.0 [facility], [facility] ([place] Comment on above: Performed By: #### B MP, ANEU, GFR, ADIFF, CBC #### [place] [address] MCV (RBC) [Entitic vol] 85.1 fL Normal 80.0-99.0 A [facility] [place] Comment on above: Performed By: #### B MP, ANEU, GFR, ADIFF, CBC #### [place] [address] Platelet 193 10 3/mcL Normal 150-450 [facility] [place] Comment on above: Performed By: #### B MP, ANEU, GFR, ADIFF, CBC #### [place] [address] Platelet mean volume (Bld) [Entitic vol] 9.6 fL Normal 6.6-10.5 [facility], [facility] ([place] Comment on above: Performed By: #### B MP, ANEU, GFR, ADIFF, CBC #### [place] [address] RBC 4.12 10 6/mcL Normal 4.10-5.30 [facility], [facility] [place] Comment on above: Performed By: #### B MP, ANEU, GFR, ADIFF, CBC #### [address] [address] WBC 9.20 10 3/mcL Normal 4.50-10.80 [facility], [facility] ([place] Comment on above: Performed By: #### B MP, ANEU, GFR, ADIFF, CBC #### [address] [address] LABORATORYOrdered By: SYSTEM SYSTEM on 08-30-2021 Basophils [...] (S/P/Bld) [Vol rate/Area] ml/min/1.73sqm Invalid Interpretation Code AH Chemistry S GFR/1.73 sq M.predicted among non-blacks MDRD (S/P/Bld) [Vol rate/Area] ml/min/1.73sqm Invalid Interpretation Code Chemistry S Glucose [Mass/Vol] 106 mg/dL Invalid Interpretation Code 82 - 115 mg/dL AH ADM SS Hematocrit (Bld) [Volume fraction] 35.0 % Invalid Interpretation Code 34.0 - 46.0 % AH Remisol SS Hemoglobin (Bld) [Mass/Vol] 11.5 G/dL Invalid Interpretation Code 12.0 - 16.0 G/dL AH Remisol SS Lymphocytes (Bld) [#/Vol] 0.70 103/mcL Invalid Interpretation Code 0.90 - 4.32 10^3/mcL AH Remisol SS Lymphocytes/100 WBC (Bld) 7.2 % Invalid Interpretation Code 20.0 - 40.0 % AH Remisol SS MCH (RBC) [Entitic mass] 27.8 pg Invalid Interpretation Code 27.0 - 33.0 pg AH Remisol SS MCHC (RBC) [Mass/Vol] 32.7 G/dL [...] % AH Remisol SS Neutrophils (Bld) [#/Vol] 7.50 103/mcL [...] Invalid Interpretation Code 8.0 - 22.0 mg/dL ADM SS Urea nitrogen/Creatinine [Mass ratio] 16.7 ratio Invalid Interpretation Code 10.0 - 22.0 ratio ADM SS WBC (Bld) [#/Vol] 9.20 103/mcL Invalid Interpretation Code 4.50 - 10.80 10^3/mcL Remisol SS .Auto Diffon 08-29-2021 Basophil, Absolute 0.10 10 3/mcL Normal 0.00-0.27 [facility], [facility] [place] Comment on above: Performed By: #### B MP, ANEU, GFR, ADIFF, CBC #### [address] [address] Basophils/100 WBC (Bld) 0.9 % Normal 0.0-2.5 A [facility] [place] Comment on above: Performed By: #### B MP, ANEU, GFR, ADIFF, CBC #### [address] [address] Eosinophil, Absolute 0.00 10 3/mcL Normal 0.00-0.65 A [facility] [place] Comment on above: Performed By: #### B MP, ANEU, GFR, ADIFF, CBC #### [address] [address] Eosinophils/100 WBC (Bld) 0.1 % Normal 0.0-6.0 [facility], [facility] ([place] Comment on above: Performed By: #### B MP, ANEU, GFR, ADIFF, CBC #### [address] [address] Lymphocyte, Absolute 0.50 10 3/mcL Low 0.90-4.32 A [facility] [place] Comment on above: Performed By: #### B MP, ANEU, GFR, ADIFF, CBC #### [address] [address] Lymphocytes/100 WBC (Bld) 4.9 % Low 20.0-40.0 [facility], [facility] ([place] Comment on above: Performed By: #### B MP, ANEU, GFR, ADIFF, CBC #### [address] [address] Monocyte, Absolute 0.50 10 3/mcL Normal 0.09-1.40 [facility], [facility] ([place] Comment on above: Performed By: #### B MP, ANEU, GFR, ADIFF, CBC #### [address] [address] Monocytes/100 WBC (Bld) 4.8 % Normal 2.0-13.0 [facility] [place] Comment on above: Performed By: #### B MP, ANEU, GFR, ADIFF, CBC #### [address] [address] Neutrophils/100 WBC (Bld) 89.3 % High 50.0-75.0 [facility], [facility] ([place] Comment on above: Performed By: #### B MP, ANEU, GFR, ADIFF, CBC #### [address] [address] .GFRon 08-29-2021 GFR >60 Normal [facility] ([place] Comment on above: Result Comment: GFR Population [...] B MP, ANEU, GFR, ADIFF, CBC #### [address] [address] GFR Non- >60 Normal [facility] ([place] Comment on above: Result Comment: GFR Population [...] B MP, ANEU, GFR, ADIFF, CBC #### [address] [address] .NEUABSon 08-29-2021 Neutrophil, Absolute 9.00 10 3/mcL High 2.25-8.10 [facility] [place] Comment on above: Performed By: #### B MP, ANEU, GFR, ADIFF, CBC #### [place] [address] ABO/Rh (Gel)on 08-29-2021 ABO/Rh Interp AB POS Invalid Interpretation Code [facility] [place] Comment on above: Performed By: #### B MP, ANEU, GFR, ADIFF, CBC #### [place] [address] ABS (Gel)on 08-29-2021 ABSC Interp (Gel) Negative Normal [facility], [facility] ([place] Comment on above: Performed By: #### B MP, ANEU, GFR, ADIFF, CBC #### [place] [id number] CBCon 08-29-2021 Erythrocyte distribution width (RBC) [Ratio] 14.2 % Normal 11.5-15.5 [facility] ([place] Comment on above: Performed By: #### B MP, ANEU, GFR, ADIFF, CBC #### [place] [address] Hematocrit (Bld) [Volume fraction] 42.5 % Normal 34.0-46.0 [facility], [facility] ([place] Comment on above: Performed By: #### B MP, ANEU, GFR, ADIFF, CBC #### [place] [address] Hgb 13.7 G/dL Normal 12.0-16.0 [facility], [facility] ([place] Comment on above: Performed By: #### B MP, ANEU, GFR, ADIFF, CBC #### [place] [address] MCH (RBC) [Entitic mass] 27.4 pg Normal 27.0-33.0 [facility], [facility] ([place] Comment on above: Performed By: #### B MP, ANEU, GFR, ADIFF, CBC #### [place] [address] MCHC 32.1 G/dL Normal 32.0-36.0 [facility], [facility] ([place] Comment on above: Performed By: #### B MP, ANEU, GFR, ADIFF, CBC #### [place] [address] MCV (RBC) [Entitic vol] 85.3 fL Normal 80.0-99.0 A [facility] [place] Comment on above: Performed By: #### B MP, ANEU, GFR, ADIFF, CBC #### [place] [address] Platelet 211 10 3/mcL Normal 150-450 [facility], [facility] ([place] Comment on above: Performed By: #### B MP, ANEU, GFR, ADIFF, CBC #### [place] [address] Platelet mean volume (Bld) [Entitic vol] 9.6 fL Normal 6.6-10.5 [facility], [facility] ([place] Comment on above: Performed By: #### B MP, ANEU, GFR, ADIFF, CBC #### [place] [address] RBC 4.99 10 6/mcL Normal 4.10-5.30 [facility], [facility] ([place] Comment on above: Performed By: #### B MP, ANEU, GFR, ADIFF, CBC #### [place] [id number] WBC 10.10 10 3/mcL Normal 4.50-10.80 [facility], [facility] ([place] Comment on above: Performed By: #### B MP, ANEU, GFR, ADIFF, CBC #### [place] [id number] CMPon 08-29-2021 Albumin Level 3.1 G/dL Low 3.2-4.8 [facility] ([place] Comment on above: Performed By: #### B MP, ANEU, GFR, ADIFF, CBC #### [place] [address] Albumin/Globulin [Mass ratio] 1.0 {ratio} Normal 0.9-1.6 [facility] ([place] Comment on above: Performed By: #### B MP, ANEU, GFR, ADIFF, CBC #### [place] [address] ALP [Catalytic activity/Vol] 130 U/L High 38-126 [facility] ([place] Comment on above: Performed By: #### B MP, ANEU, GFR, ADIFF, CBC #### [place] [address] ALT [Catalytic activity/Vol] 14 U/L Normal 10-49 [facility] ([place] Comment on above: Performed By: #### B MP, ANEU, GFR, ADIFF, CBC #### [place] [id number] AST [Catalytic activity/Vol] 21 U/L Normal 8-34 [facility] ([place] Comment on above: Performed By: #### B MP, ANEU, GFR, ADIFF, CBC #### [place] [address] Bili Total 0.30 mg/dL Normal 0.20-1.20 [facility] ([place] Comment on above: Result Comment: Use of this assay is not recommended for patients undergoing treatment with eltrombopag due to the potential for falsely elevated results. Performed By: #### B MP, ANEU, GFR, ADIFF, CBC #### [place] [address] BUN/Creatinine Ratio 18.0 ratio Normal 10.0-22.0 [facility] ([place] Comment on above: Performed By: #### B MP, ANEU, GFR, ADIFF, CBC #### [place] [id number] Calcium [Mass/Vol] 8.2 mg/dL Low 8.7-10.4 [facility] ([place] Comment on above: Result Comment: No te - New Reference Range in effect 20 Performed By: #### B MP, ANEU, GFR, ADIFF, CBC #### [place] [address] Chloride [Moles/Vol] 110 mmol/L Normal 98-110 [facility] ([place] Comment on above: Performed By: #### B MP, ANEU, GFR, ADIFF, CBC #### [place] [address] CO2 [Moles/Vol] 19 mmol/L Low 22-32 [facility] ([place] Comment on above: Performed By: #### B MP, ANEU, GFR, ADIFF, CBC #### [place] [address] Creatinine [Mass/Vol] 0.50 mg/dL Normal 0.50-1.20 [facility] ([place] Comment on above: Performed By: #### B MP, ANEU, GFR, ADIFF, CBC #### [place] [address] Electrolyte Balance 5.0 mEq/L Normal 4.0-15.0 [facility] ([place] Comment on above: Performed By: #### B MP, ANEU, GFR, ADIFF, CBC #### [place] [id number] Globulin 3.1 G/dL Normal 1.5-3.8 [facility] ([place] Comment on above: Performed By: #### B MP, ANEU, GFR, ADIFF, CBC #### [place] [id number] Glucose [Mass/Vol] 146 mg/dL High 82-115 [facility] ([place] Comment on above: Performed By: #### B MP, ANEU, GFR, ADIFF, CBC #### [address] [address] Potassium [Moles/Vol] 4.2 mmol/L Normal 3.5-5.0 [facility] ([place] Comment on above: Result Comment: Spec imen slightly hemolyzed. Performed By: #### B MP, ANEU, GFR, ADIFF, CBC #### [address] [address] Sodium [Moles/Vol] 134 mmol/L Low 136-145 [facility] ([place] Comment on above: Performed By: #### B MP, ANEU, GFR, ADIFF, CBC #### [address] [address] Total Protein 6.2 G/dL Normal 5.7-8.2 [facility] ([place] Comment on above: Result Comment: No te - New Reference Range in effect 20 Performed By: #### B MP, ANEU, GFR, ADIFF, CBC #### [address] [address] Urea nitrogen [Mass/Vol] 9.0 mg/dL Normal 8.0-22.0 [facility] ([place] Comment on above: Performed By: #### B MP, ANEU, GFR, ADIFF, CBC #### [address] [address] LABORATORYOrdered By: Latoya Castellon on 08-29-2021 ABO and Rh group Nom (Bld) Blood group AB Rh(D) positive Invalid Interpretation Code AH BB Auto SS Blood group antibody screen Ql NEG (08/29/21 1:33 AM) Invalid Interpretation Code AH BB Auto SS LABORATORYOrdered By: [employer] on 08-29-2021 Albumin BCP dye [Mass/Vol] 3.1 G/dL Invalid Interpretation Code 3.2 - 4.8 G/dL AH ADM SS Albumin/Globulin [Mass ratio] 1.0 {ratio} Invalid Interpretation Code 0.9 - 1.6 ratio AH ADM SS ALP [Catalytic activity/Vol] 130 U/L Invalid Interpretation Code 38 - 126 U/L AH ADM SS ALT No additional P-5'-P [Catalytic activity/Vol] 14 U/L Invalid Interpretation Code 10 - 49 U/L AH ADM SS AST [Catalytic activity/Vol] 21 U/L Invalid Interpretation Code 8 - 34 U/L AH ADM SS Basophils (Bld) [#/Vol] 0.10 103/mcL Invalid Interpretation Code 0.00 - 0.27 10^3/mcL AH Remisol SS Basophils/100 WBC (Bld) 0.9 % Invalid Interpretation Code 0.0 - 2.5 % AH Remisol SS Bilirubin [Mass/Vol] 0.30 mg/dL Invalid Interpretation Code 0.20 - 1.20 mg/dL AH ADM SS Calcium [Mass/Vol] 8.2 mg/dL Invalid Interpretation Code 8.7 - 10.4 mg/dL AH ADM SS Chloride [Moles/Vol] 110 mmol/L Invalid Interpretation Code 98 - 110 mEq/L AH ADM SS CO2 [Moles/Vol] 19 mmol/L Invalid Interpretation Code 22 - 32 mEq/L AH ADM SS Creatinine [Mass/Vol] 0.50 mg/dL Invalid Interpretation Code 0.50 - 1.20 mg/dL AH ADM SS Electrolyte Balance 5.0 mEq/L Invalid Interpretation Code 4.0 - 15.0 mEq/L AH ADM SS Eosinophils (Bld) [#/Vol] 0.00 103/mcL Invalid Interpretation Code 0.00 - 0.65 10^3/mcL AH Remisol SS Eosinophils/100 WBC (Bld) 0.1 % Invalid Interpretation Code 0.0 - 6.0 % AH Remisol SS Erythrocyte distribution width (RBC) [Ratio] 14.2 % Invalid Interpretation Code 11.5 - 15.5 % AH Remisol SS GFR/1.73 sq M.predicted among blacks MDRD (S/P/Bld) [Vol rate/Area] ml/min/1.73sqm Invalid Interpretation Code AH Chemistry S GFR/1.73 sq M.predicted among non-blacks MDRD (S/P/Bld) [Vol rate/Area] ml/min/1.73sqm Invalid Interpretation Code Chemistry S Globulin 3.1 G/dL Invalid Interpretation Code 1.5 - 3.8 G/dL ADM SS Glucose [Mass/Vol] 146 mg/dL Invalid [...] 08/28/2021 11:08:21 PM Ordering Provider: NASREEN REYNAGA [facility] [place] FEMUR MINIMUM 2 VIEWS LEF Ton 08-29-2021 XR FEMUR MINIMUM 2 VIEWS LEFT [...] 08/28/2021 11:09:16 PM Ordering Provider: NASREEN REYNAGA [facility] [place] HIP LEFT W/PELVIS 4 VIEWS on [...] 08/29/2021 6:32:10 PM Ordering Provider: BELLA GILLESPIE [facility]) XR PELVIS 1 OR 2 VIEWSon XR [...] 08/28/2021 11:10:03 PM Ordering Provider: NASREEN REYNAGA [facility]) XR Chest PA and Lateralon IMPRESSION: Chronic interstitial lung changes with increased nodular bandlike density in the left mid lung which could represent mucous plugging or airways inflammation area of previous bronchiectasis and scarring. Otherwise, lungs are stable and clear. Pumping Plant Operator: SABINO Transcribe Date/Time: May 01 2021 2:32P Dictated by : BETSEY DILLON MD This examination was interpreted and the report reviewed and electronically signed by: BETSEY DILLON MD on May 01 2021 2:37PM [facility] DIVISION OF RADIOLOGY * * *Final Report* [...] structures are intact DIVISION OF RADIOLOGY Provider, [facility] - 05/01/2021 * * *Final Report* * [...] scarring. Otherwise, lungs are stable and clear. Pumping Plant Operator: SABINO Transcribe Date/Time: May 01 2021 2:32P Dictated by : BETSEY DILLON MD This examination was interpreted and the report reviewed and electronically signed by: BETSEY DILLON MD on May 01 2021 2:37PM EST [facility] Radiology Study [facility]narrative[facility] Chest PA and LateralOrder ed By: Ccf Provider on 05-01-2021 [facility] XR KNEE GENERAL 4V AP BOTH/P A BOTH/LAT/MERC RTon 02-08-2021 [facility] BD DXA - AXIAL SKELETONon BD DXA - AXIAL SKELETON Final Report DATE OF EXAM: May 10 2020 3:56PM AWX 0804 - BD DXA - AXIAL SKELETON / PROCEDURE REASON: Osteoporosis, unspecified osteoporosis type, unspecified pathological fracture p Physician Interpretation EXAM TITLE: BONE MINERAL DENSITOMETRY COMPARISON:None CLINICAL INDICATION/HISTORY: Postmenopausal TECHNIQUE: DXA AppGyverW-Foxfly v.13.4 examination was performed on the lumbar [...] at high risk for accelerated bone loss). Pumping Plant Operator: SABINO Transcribe Date/Time: May 11 2020 1:27P Dictated by : AMENA LESTER MD This examination was interpreted and the report reviewed and electronically signed by: AMENA LESTER MD on May 11 2020 1:28PM EST Normal [facility] ANES Margaret 10-02-2019 ANES POST HNO ID: [id number] Author: Nilam Lu Service: Anesthesiology Author Type: [...] 02, 2019 TIME: 4:55 PM PAGER/CONTACT #: [phone] [facility] ANES PREOPon 10-02-2019 ANES PREOP HNO ID: [id number] Author: Nilam Lu Service: Anesthesiology Author Type: [...] PROBLEM LIST Rheumatoid Arthritis Involving Multiple Sites (Hcc) Fibromyalgia Depression Asthma Hyperlipidemia With Target Ldl Less Than 130 Insomnia Hip Pain Thoracic Or Lumbosacral Neuritis Or Radiculitis, Unspecified Piriformis Syndrome Intermittent Palpitations Pvc's (Premature Ventricular Contractions) Anemia Iron Deficiency Anemia Due to Chronic Blood Loss Iron Malabsorption Rpe Mottling of [place] Dry Eyes Dermatochalasis of Both Upper Eyelids Rheumatoid Arthritis Involving Multiple Sites With Positive Rheumatoid Factor ([facility]) Vitreous Floaters of Both Eyes Vitamin D [...] Stenosis Chronic Diastolic Chf (Congestive Heart Failure) ([facility]) Copd (Chronic Obstructive Pulmonary Disease) ([facility]) Tear of Medial Meniscus of Right Knee PAST MEDICAL HISTORY Diagnosis Date - Asthma - Homer lesion, acute 01/30/2019 - Carotid artery disease ([facility]) - COPD (chronic obstructive pulmonary disease) ([facility]) - Depression - Diverticulosis - Fibromyalgia - Fibromyalgia - GERD (gastroesophageal reflux disease) - GI bleed 02/2019 - Hiatal hernia - Hyperlipidemia - Hypertension - Insomnia - Iron deficiency anemia - Osteoarthritis - Osteoporosis - Piriformis syndrome - PVC's (premature ventricular contractions) - Rheumatoid arthritis ([facility]) - Sjogren's disease ([facility]) - Vitamin D deficiency PAST SURGICAL HISTORY Procedure Laterality Date - COLONOSCOP W/ OR W/O BRSH SPEC 04/11/2015 Colonoscopy - COLONOSCOP W/ OR [...] Ischemic Heart Disease Father age 42 from [place] - Hypertension Sister - other (Other) Brother [...] injection (XYLOCAINE) 0.1-0.2 mL INTRADERMAL PRN Ana (Cy) Kenyon - lactated ringers infusion 5-30 mL/hr INTRAVENOUS CONTINUOUS Ana (Cy) Kenyon - ceFAZolin iv piggyback 2 g in D5W (iso-osmotic) 100 mL (ANCEF) 2 g INTRAVENOUS Pre-Op Once Ana (Cy) Kenyon Allergies: ALLERGIES Allergen Reactions - Cymbalta [...] October 02, 2019 TIME: 1:00 PM CSN: [id number] [facility] BRIEF OP NOTon 10-02-2019 BRIEF OP NOT HNO ID: [id number] Author: Michael Knott Service: Orthopaedic Surgery Author Type: Physician Type: Brief Op Note Filed: 10/02/2019 3:05 PM Note Text: OPERATIVE/PROCEDURE REPORT LOG ID: [id number] SURGERY/PROCEDURE DATE: 10/02/2019 INCISION/PROCEDURE START TIME: 2:39 PM INCISION CLOSE/PROCEDURE END TIME: 3:00 PM SURGEON(S)/PROCEDURALIST (S) AND DRIVEWAY SEALER(S): Surgeon(s) and Role: * Michael Knott - Primary Physician Retail Assistant: Ana Prescott (Pa) Registered Nurse Pump Room Operator: Mishel (López) LÓPEZ Sow SURGERY/PROCEDURE(S): Right DAK PMM ANESTHESIA: General SURGERY/PROCEDURE DETAILS: above PRE-OP/PRE-PROCEDURE DIAGNOSIS: MMT right knee POST-OP/POST-PROCEDURE DIAGNOSIS: Same as Preop ESTIMATED BLOOD LOSS: 0 ml SPECIMENS: None IMPLANTABLE DEVICES: None DRAINS: None COMPLICATIONS: None PARTICIPATION IN SURGERY/PROCEDURE: I/primary surgeon/proceduralist performed the procedure with assistance. No qualified resident/fellow was available. SIGNATURE: Michael Knott MD FACS PATIENT NAME: Marimar Wang DATE: October 02, 2019 TIME: 3:03 PM PAGER/CONTACT #: [facility] OPERATIVE NOon 10-02-2019 OPERATIVE NO HNO ID: [id number] Author: Michael Knott Service: Orthopaedic Surgery Author Type: Physician Type: Operative Report Filed: 10/05/2019 7:34 AM Note Text: [facility] - Operative Report MARIMAR WANG : 1960 AGE: 59. SEX: F PATIENT TYPE: A HOSP [facility]: OROR LOCATION: [facility] ATTENDING PHYSICIAN: Michael Knott M.D. CSN NUMBER: [id number] DATE OF SURGERY/PROCEDURE: 10/02/2019 INCISION/PROCEDURE START TIME: 1439. INCISION CLOSE/PROCEDURE END TIME: 1505. PREOPERATIVE DIAGNOSIS: 1. Medial meniscal tear of the right knee. 2. Grade 3 localized changes inferior pole patella, medial femoral condyle. POSTOPERATIVE DIAGNOSIS: Medial meniscal tear [facility] SURGEON: Michael Knott M.D. DRIVEWAY SEALER: Ana Prescott PA-C. SURGERY/PROCEDURE: Arthroscopic partial medial [...] surgeon performed the entire procedure with 1st sales and marketing assistant helping with wound closure, dressing application, protecting neurovascular structures. Michael Knott M.D. JBS:[id number] [facility] PLAN OF CAREon 10-02-2019 PLAN OF CARE HNO ID: [id number] Author: Celia Baldwin (Broach Trouble Shooter) Service: Pharmacy Author Type: ? Type: Plan of Care Filed: 10/02/2019 4:10 PM Note Text: [employer] BEDSIDE DELIVERY SURVEY 1. Patient to use [facility] Bedside Delivery - YES Insurance Information as follows: 2. Insurance card on file - YES 3. Credit card for payment - YES PHARMACY BEDSIDE DELIVERY SERVICE Patient Name: Marimar Wang The marked outpatient medications were Filled at: [place] and delivered to the patient's bedside to [...] or your Primary Care Provider. Celia Baldwin (Broach Trouble Shooter) PAGER: [phone] October 02, 2019 4:10 PM [facility] PT EDon 10-02-2019 PT ED HNO ID: [id number] Author: Elisabeth WattsRn) LÓPEZ Alexis Service: Nursing [...] Signed By: Elisabeth Alexis RN In Department: [facility] SURGERY [facility] PT ED HNO ID: [id number] Author: Krystal WattsRn) LÓPEZ Vivar Service: ? Author Type: Registered [...] Signed By: Krystal Vivar RN In Department: [facility] SURGERY [facility] NURSING PROGon 09-21-2019 NURSING PROG HNO ID: [id number] Author: Jaiden Keita (Rn) Constantino RN Service: ? Author Type: Registered Nurse [...] 12 Months: MRI Knee right 01/22/19 see [facility] Chest X-ray 05/05/19 see [facility] No acute radiographic abnormality. Stable cardiac enlargement X-ray Knee Right 12/02/18 see [facility] Cardiac Testing: EKG in last 12 Months: Yes: Date: 02/20/19, Comment: See [facility] NORMAL SINUS RHYTHM POSSIBLE LEFT ATRIAL ENLARGEMENT LEFT VENTRICULAR HYPERTROPHY ECHO Date: 02/13/19, Comment: EF 58% +or-5%-see [facility] Regadenoson NuclearStress Test Date: 03/02/19 , Comment: No ischemia or scar-see [facility] Last Menstrual Period: LMP Date: None recorded Postmenopausal >1yr: Yes, S/P Hysterectomy: No BMI Percentile (PEDS): N/A Risk Assessment: Cardiac Date: 02/20/19 Dr Ronit Rahman, scanned in [facility] 03/19/19(Scanned documents) Anesthesia Review: N/A Narrative: [...] Meeks RN September 25, 2019 7:26 AM [facility] HOSPon 09-01-2019 HOSP Patient:Isabell Wang MRN: Height:5' [...] Thoracic or lumbosacral neuritis or radiculitis, unspecified [[id number]] Piriformis syndrome [G57.00] Intermittent palpitations [R00.2] PVC's [...] [I65.29] Chronic diastolic CHF (congestive heart failure) ([facility]) [I50.32] COPD (chronic obstructive pulmonary disease) ([facility]) [J44.9] Tear of medial meniscus of right knee [S83.241A] Allergies: Cymbalta [Duloxetine] Dilaudid [Hydromorphone (Bulk)] horse serum [Other] Morphine Nsaids (Non-Steroidal Anti-Inflammatory Drug) Vibramycin [Doxycycline Calcium] Vicodin [Hydrocodone-Acetaminoph en] Date Verified: 10/02/19 Lab Values Lab Value Units Date High Low POTA* 4.0 mEq/L 09/15/2019 5.1 3.5 ANDREW* 46.5 % 09/15/2019 44.9 34.1 Progress Notes ([facility]): Priscila Carrillo CMA 09/18/2019 10:10 AM Signed ----- Message from Sarah Pearson (Pa) sent at 09/15/2019 4:28 PM EST ----- Labs are still showing inflammation but improving since being on Orencia infusions. LIZZIE Cruz CMA 09/18/2019 10:11 AM Signed Patient was called and informed. Priscila Carrillo CMA Progress Notes ([facility]): Sarah Pearson PA-C 09/02/2019 12:33 PM [...] Rheumatological history - Patient was seeing a marine engine machinist in [facility]. She was prescribed Xeljanz (she took [...] Laterality Date - COLONOSCOP W/ OR W/O [facility] SPEC 04/11/2015 Colonoscopy - COLONOSCOP W/ [...] for RA, Dr. Arias. Sarah Pearson PA-C [facility] Office Visit ([facility] ) -------- MARIMAR WANG ([id number]) 1960 F Date Time Provider Department 08/26/19 2:00 PM BRIAN RADER (TRACY) [facility] During your visit today, we recorded the following information about you: Pulse Blood pressure Weight 76/minute 143/82 90.7 kg Brian Rader APRN.CNP 08/26/2019 3:18 PM Signed [facility] [place] [facility] OUTPATIENT VISIT DATE August [...] Laterality Date - COLONOSCOP W/ OR W/O [facility] SPEC 04/11/2015 Colonoscopy - COLONOSCOP W/ OR W/O [facility] SPEC 09/23/2017 Colonoscopy repeat 10 years [...] Ischemic Heart Disease Father age 42 from [place] - Hypertension Sister - other (Other) Brother [...] given to patient. Discussed when to call MD/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 or go to ED. Discussed follow up. [...] Discussed red flags and when to call MD/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 or go to ED. Medications reconciled at [...] or concern, you can call me at [phone]. Referring Provider: RONIT RAHMAN [[id number]] Allergies As of Date: 08/26/2019 Noted Allergy [...] time Date Reviewed: 08/26/2019 Reviewed by: Brian Rader - Fully Assessed Reason for Visit: Shortness [...] or concern, you can call me at [phone]. Prescriptions ordered this encounter Disp Refills Start [...] of Service: NEW PATIENT VISIT LEVEL 4 [[id number]] Encounter Status:Closed by BRIAN RADER CNP on 08/26/19 Normal [facility] PROGRESSon 08-26-2019 PROGRESS HNO ID: [id number] Author: Brian Field) Johny Service: ? Author Type: Nurse Practitioner Type: Progress Notes Filed: 08/26/2019 3:18 PM Note Text: [facility] [place] [facility] OUTPATIENT VISIT DATE August [...] - Exam was compared with the prior CC echocardiographic exam performed on 08/16/2017. The amount [...] Laterality Date - COLONOSCOP W/ OR W/O BRSH SPEC 04/11/2015 Colonoscopy - COLONOSCOP W/ OR [...] Ischemic Heart Disease Father age 42 from [place] - Hypertension Sister - other (Other) Brother [...] given to patient. Discussed when to call MD/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 or go to ED. Discussed follow up. [...] Discussed red flags and when to call MD/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 or go to ED. Medications reconciled at end of visit: yes I spent 45 minutes in this visit, with more than 50% of the time devoted to patient counseling. SIGNATURE: Brian Rader APRN.TRACY PATIENT NAME: Marimar Wang DATE: August 26, 2019 TIME: 1:15 PM [facility] 03-02-2019 [facility] HNO ID: [id number] Author: KIM Moffett (Ct) Service: Nuclear Medicine Author Type: Clinical Emergency Medical Technician Type: Allied Health Filed: 03/02/2019 12:03 PM [...] STATUS: Discontinued PROCEDURE TYPE: NM Stress: 15.4mCi [id number] was administered IV for Rest Imaging at 08:53 by KIM Moffett . 46.4 mCi [id number] was administered IV for Stress Imaging at 09:59 by KIM Moffett . ADMINISTRATION TIME: PATIENT DISCHARGED TO: Ambulatory patient, left DE department area. A Diagnostic radioactive procedure has taken place, with no further precautions necessary other than routine body substance precautions. More information regarding radiation safety can be found using this link: [email or web address] ion [email or web address] ear%[email or web address] [email or web address] SIGNATURE: KIM Moffett PATIENT NAME: Marimar Wagn DATE: March 02, 2019 TIME: 12:02 PM PAGER/CONTACT #: Normal [facility] NM CARDIAC PERF STRESS/PHARM on 03-02-2019 NM CARDIAC PERF STRESS/PHARM * * *Final Report* * * DATE OF EXAM: Mar 02 2019 11:00AM ALEX 0006 - NM CARDIAC PERF STRESS/PHARM / PROCEDURE REASON: multiple [...] 60 minutes later. See administered doses below. [facility] Date of service: 03/02/2019 9:02:38 AM Ordering [...] normal sinus rhythm. Stress complications: none. Final Pumping Plant Operator: SRIKANTH Transcritiffany Date/Time: Mar 02 2019 9:02A Dictated by : ORTEGA SON DO This examination was interpreted and the report reviewed and electronically signed by: ORTEGA SON DO on Mar 02 2019 4:18PM EST [id number] [facility] NUCLEAR STRESS LEXISCAN (CAR D)on 03-02-2019 NUCLEAR STRESS LEXISCAN (CARD) NAME : MARIMAR WANG PID : [id number] : 1960 Gender : Female Race : ORD : [id number] Procedure Date : Mar 02 2019 10:16:12 Edit Date : Mar 05 2019 08:53:18 Conclusions:PLEASE REFER TO IMAGING SECTION IN EPIC FOR COMPLETE INTERPRETATION OF STRESS TEST AND MYOCARDIAL PERFUSION IMAGING Protocol Name : LEXISCDAVID Time In Exercise Phase : 00:06:00 Max. Systolic BP : 181 mmHg Max Diastolic BP : 75 mmHg Max Heart Rate : 110 BPM Max Predicted Heart Rate : 161 BPM Recovery ECG Response (OLD) : Reason For Termination : End of Protocol Test Reason : Dyspnea with Exercise Location :[facility] Overread By : ORTEGA SON D.O. Edited By : Yanet Valladares Referred By : RONIT RAHMAN Acquired by : ULISES GARCIA [facility] Jeremy 02-27-2019 CNPN Telephone ([facility]) -------- MARIMAR WANG ([id number]) 1960 F Date Time Provider Department 02/27/19 NIKKIE BOSTON (RN) [facility] During your visit today, we recorded the following information about you: Nikkie Boston RN, RN 02/27/2019 12:56 PM Signed Spoke [...] Fully Assessed Reason for Visit: Reminder Call [[id number]] Prescriptions as of 02/27/2019 Sig: FUROSEMIDE 40 [...] Encounter Status:Closed by NIKKIE BOSTON on 02/27/19 [facility] Vital Signs Date Time Vital Sign Value Performing Clinician Facility 03-19-2025 11:07-0400 Body mass index (BMI) [Ratio] 29.7 kg/m2 Josh Bennett DO Work Phone: [facility] 03-19-2025 11:07-0400 Body temperature 97.7 [degF] Josh Bennett DO Work Phone: [facility] 03-19-2025 11:07-040 Body weight 78.47 kg Josh Bennett DO Work Phone: [facility] 03-19-2025 11:07-0400 Diastolic blood pressure 80 mm[Hg] Josh Bennett DO Work Phone: [place] [address]-22-2025 11:07-0400 Heart rate 77 /min Josh Bennett DO Work Phone: [facility] 03-19-2025 11:07-0400 SaO2% (BldA) [Mass fraction] 96 % Josh Bennett DO Work Phone: [facility] 03-19-2025 11:07-0400 Systolic blood pressure 130 mm[Hg] Josh Bennett DO Work Phone: [facility] 03-18-2025 10:13-0400 Body temperature 97.39 [degF] Treatment Wstr Work Phone: [facility] 03-18-2025 10:13-0400 Diastolic blood pressure 73 mm[Hg] Treatment Wstr Work Phone: [facility] 03-18-2025 10:13-0400 Heart rate 87 /min Treatment Wstr Work Phone: [facility] 03-18-2025 10:13-0400 SaO2% (BldA) [Mass fraction] 95 % Treatment Wstr Work Phone: [facility] 03-18-2025 10:13-0400 Systolic blood pressure 123 mm[Hg] Treatment Wstr Work Phone: [facility] 03-16-2025 10:37-0400 Body height 157.48 cm Woo Thapa MD Work Phone: [facility] 03-16-2025 10:37-0400 Body mass index (BMI) [Ratio] 31.3 kg/m2 Woo Thapa MD Work Phone: [facility] 03-16-2025 10:37-0400 Body temperature 97.9 [degF] Woo Thapa MD Work Phone: [facility] 03-16-2025 10:37-0400 Body weight 77.73 kg Woo Thapa MD Work Phone: [facility] 03-16-2025 10:37-0400 Diastolic blood pressure 81 mm[Hg] Woo Thapa MD Work Phone: 4(021)205-960862 [place] [address] 03-16-2025 10:37-0400 Heart rate 72 /min Woo Thapa MD Work Phone: 6(031)599-971562 [place] [address] 03-16-2025 10:37-0400 Respiratory rate 18 /min Woo Thapa MD Work Phone: 8(593)446-075187 [place] [address] 03-16-2025 10:37-0400 SaO2% (BldA) [Mass fraction] 98 % Woo Thapa MD Work Phone: 6(278)635-210387 [place] [address] 03-16-2025 10:37-0400 Systolic blood pressure 127 mm[Hg] Woo Thapa MD Work Phone: 4(784)430-672187 [place] [address] 03-02-2025 10:59-0400 Body temperature 97.9 [degF] Woo Thapa MD Work Phone: 3(230)551-623287 [place] [address] 03-02-2025 10:59-0400 Diastolic blood pressure 54 mm[Hg] Woo Thapa MD Work Phone: 4(781)513-378487 [place] [address] 03-02-2025 10:59-0400 Heart rate 74 /min Woo Thapa MD Work Phone: 9(735)954-248187 [place] [address] 03-02-2025 10:59-0400 Respiratory rate 16 /min Woo Thapa MD Work Phone: 2(447)022-427387 [place] [address] 03-02-2025 10:59-0400 SaO2% (BldA) [Mass fraction] 95 % Woo Thapa MD Work Phone: 0(103)540-424787 [place] [address] 03-02-2025 10:59-0400 Systolic blood pressure 132 mm[Hg] Woo Thapa MD Work Phone: 6(534)439-665387 [place] [address] 03-02-2025 08:37-0400 Body height 158.75 cm Woo Thapa MD Work Phone: 8(722)902-158787 [place] [address] 03-02-2025 08:37-0400 Body mass index (BMI) [Ratio] 33.8 kg/m2 Woo Thapa MD Work Phone: 3(096)361-140787 [place] [address] 03-02-2025 08:37-0400 Body weight 85.3 kg Woo Thapa MD Work Phone: [facility] 02-27-2025 19:48-0400 Body temperature 98.1 [degF] Julio Arriaga 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-C Work Phone: [facility] 02-27-2025 19:48-0400 Diastolic blood pressure 68 mm[Hg] Julio Arriaga 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-C Work Phone: [facility] 02-27-2025 19:48-0400 Heart rate 91 /min Julio Arriaga 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-C Work Phone: [facility] 02-27-2025 19:48-0400 Respiratory rate 16 /min Julio Arriaga 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-C Work Phone: [facility] 02-27-2025 19:48-0400 SaO2% (BldA) [Mass fraction] 97 % Julio Arriaga 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-C Work Phone: [facility] 02-27-2025 19:48-0400 Systolic blood pressure 147 mm[Hg] Julio Arriaga 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-C Work Phone: [facility] 02-27-2025 17:19-0400 Body height 157.48 cm Julio Arriaga 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-C Work Phone: [facility] 02-27-2025 17:19-0400 Body mass index (BMI) [Ratio] 33.1 kg/m2 Julio Arriaga NP-C Work Phone: [facility] 02-27-2025 17:19-0400 Body weight 82.19 kg Julio Arriaga 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-C Work Phone: [facility] 02-18-2025 12:50-0400 Body temperature 98.91 [degF] Treatment Wstr Work Phone: [facility] 02-18-2025 12:50-0400 Diastolic blood pressure 73 mm[Hg] Treatment Wstr Work Phone: [facility] 02-18-2025 12:50-0400 Heart rate 82 /min Treatment Wstr Work Phone: [facility] 02-18-2025 12:50-0400 SaO2% (BldA) [Mass fraction] 95 % Treatment Wstr Work Phone: [facility] 02-18-2025 12:50-0400 Systolic blood pressure 159 mm[Hg] Treatment Wstr Work Phone: [facility] 02-09-2025 09:46-0400 Body height 157.48 cm Julio Arriaga 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-C Work Phone: [facility] 02-09-2025 09:46-0400 Body mass index (BMI) [Ratio] 33.3 kg/m2 Julio Arriaga 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-C Work Phone: [facility] 02-09-2025 09:46-0400 Body weight 82.55 kg Julio Arriaga 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-C Work Phone: [facility] 02-09-2025 09:46-0400 Diastolic blood pressure 76 mm[Hg] Julio Arriaga 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-C Work Phone: [facility] 02-09-2025 09:46-0400 Heart rate 68 /min Julio Arriaga 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-C Work Phone: [facility] 02-09-2025 09:46-0400 Respiratory rate 17 /min Julio Arriaga 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-C Work Phone: [facility] 02-09-2025 09:46-0400 SaO2% (BldA) [Mass fraction] 96 % Julio Arriaga 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-C Work Phone: [facility] 02-09-2025 09:46-0400 Systolic blood pressure 134 mm[Hg] Julio Arriaga 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-C Work Phone: [facility] 02-05-2025 10:43-0400 Body mass index (BMI) [Ratio] 31.03 kg/m2 Treatment Wstr Work Phone: [facility] 02-05-2025 10:43-0400 Body temperature 99 [degF] Treatment Wstr Work Phone: [facility] 02-05-2025 10:43-0400 Body weight 82 kg Treatment Wstr Work Phone: [facility] 02-05-2025 10:43-0400 Diastolic blood pressure 76 mm[Hg] Treatment Wstr Work Phone: [facility] 02-05-2025 10:43-0400 Heart rate 74 /min Treatment Wstr Work Phone: [facility] 02-05-2025 10:43-0400 Respiratory rate 16 /min Treatment Wstr Work Phone: [facility] 02-05-2025 10:43-0400 SaO2% (BldA) [Mass fraction] 96 % Treatment Wstr Work Phone: [facility] 02-05-2025 10:43-0400 Systolic blood pressure 166 mm[Hg] Treatment Wstr Work Phone: [facility] 02-02-2025 11:01-0400 Body height 157.48 cm Julio Arriaga NP-C Work Phone: [facility] 02-02-2025 11:01-0400 Body mass index (BMI) [Ratio] 33.5 kg/m2 Julio Arriaga NP-C Work Phone: [facility] 02-02-2025 11:01-0400 Body weight 83 kg Julio Arriaga NP-C Work Phone: [facility] 02-02-2025 11:01-0400 Diastolic blood pressure 77 mm[Hg] Julio Arriaga NP-C Work Phone: [facility] 02-02-2025 11:01-0400 Heart rate 75 /min Julio Arriaga NP-C Work Phone: [facility] [facility] 02-02-2025 11:01-0400 SaO2% (BldA) [Mass fraction] 96 % Julio Corina 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-C Work Phone: [facility] 02-02-2025 11:01-0400 Systolic blood pressure 160 mm[Hg] Julio Arriaga 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-C Work Phone: [facility] 01-14-2025 08:27-0400 Body height 157.48 cm Julio Arriaga 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-C Work Phone: [facility] 01-14-2025 08:27-0400 Body mass index (BMI) [Ratio] 33.5 kg/m2 Julio Arriaga 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-C Work Phone: [facility] 01-14-2025 08:27-0400 Body temperature 97.6 [degF] Julio Arriaga 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-C Work Phone: [facility] 01-14-2025 08:27-0400 Body weight 83 kg Julio Arriaga 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-C Work Phone: [facility] 01-14-2025 08:27-0400 Diastolic blood pressure 84 mm[Hg] Julio Arriaga 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-C Work Phone: [facility] 01-14-2025 08:27-0400 Heart rate 74 /min Julio Arriaga 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-C Work Phone: [facility] 01-14-2025 08:27-0400 Respiratory rate 20 /min Julio Arriaga 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-C Work Phone: [facility] 01-14-2025 08:27-0400 SaO2% (BldA) [Mass fraction] 96 % Julio Arriaga 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-C Work Phone: [facility] 01-14-2025 08:27-0400 Systolic blood pressure 167 mm[Hg] Julio Arriaga 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-C Work Phone: [facility] 01-07-2025 10:24-0400 Body temperature 97.11 [degF] Treatment Wstr Work Phone: [facility] 01-07-2025 10:24-0400 Diastolic blood pressure 60 mm[Hg] Treatment Wstr Work Phone: [facility] 01-07-2025 10:24-0400 Heart rate 75 /min Treatment Wstr Work Phone: [facility] 01-07-2025 10:24-0400 SaO2% (BldA) [Mass fraction] 93 % Treatment Wstr Work Phone: [facility] 01-07-2025 10:24-0400 Systolic blood pressure 124 mm[Hg] Treatment Wstr Work Phone: [facility] 12-27-2024 16:27-0400 Body temperature 98.2 [degF] Julio Arriaga 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-C Work Phone: [facility] 12-27-2024 16:27-0400 Diastolic blood pressure 58 mm[Hg] Julio Arriaga 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-C Work Phone: [facility] 12-27-2024 16:27-0400 Heart rate 70 /min Julio Arriaga 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-C Work Phone: [facility] 12-27-2024 16:27-0400 Respiratory rate 18 /min Julio Arriaga 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-C Work Phone: [facility] 12-27-2024 16:27-0400 SaO2% (BldA) [Mass fraction] 96 % Julio Arriaga 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-C Work Phone: [facility] 12-27-2024 16:27-0400 Systolic blood pressure 112 mm[Hg] Julio Arriaga 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-C Work Phone: [facility] 12-27-2024 14:43-0400 Body height 157.48 cm Julio Arriaga 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-C Work Phone: [facility] 12-27-2024 14:43-0400 Body mass index (BMI) [Ratio] 32.3 kg/m2 Julio Arriaga 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-C Work Phone: [facility] 12-27-2024 14:43-0400 Body weight 80.33 kg Julio ECHEVARRIA Work Phone: [facility] 11-30-2024 10:31-0400 Body mass index (BMI) [Ratio] 30.55 kg/m2 Delvin Ron BOAT HOP.REGULATORY LEADER Work Phone: [facility] 11-30-2024 10:31-0400 Body temperature 97.7 [degF] Delvin Rno BOAT HOP.REGULATORY LEADER Work Phone: [facility] 11-30-2024 10:31-0400 Body weight 80.74 kg Delvin Ron BOAT HOP.REGULATORY LEADER Work Phone: [facility] 11-30-2024 10:31-0400 Diastolic blood pressure 75 mm[Hg] Delvin Ron BOAT HOP.REGULATORY LEADER Work Phone: [facility] 11-30-2024 10:31-0400 Heart rate 80 /min Delvin Ron BOAT HOP.REGULATORY LEADER Work Phone: [facility] 11-30-2024 10:31-0400 SaO2% (BldA) [Mass fraction] 95 % Delvin Ron BOAT HOP.REGULATORY LEADER Work Phone: [facility] 11-30-2024 10:31-0400 Systolic blood pressure 129 mm[Hg] Delvin Ron BOAT HOP.REGULATORY LEADER Work Phone: [facility] 11-30-2024 10:18-0400 Body mass index (BMI) [Ratio] 30.64 kg/m2 Lab/Port Wstr Work Phone: [facility] 11-30-2024 10:18-0400 Body weight 80.97 kg Lab/Port Wstr Work Phone: [facility] 11-10-2024 09:49-0400 Body temperature 97.7 [degF] Sidney Joya MD Work Phone: [facility] 11-10-2024 09:49-0400 Diastolic blood pressure 81 mm[Hg] Sidney Joya MD Work Phone: [facility] 11-10-2024 09:49-0400 Heart rate 80 /min Sidney Joya MD Work Phone: [facility] 11-10-2024 09:49-0400 SaO2% (BldA) [Mass fraction] 94 % Sidney Joya MD Work Phone: [facility] 11-10-2024 09:49-0400 Systolic blood pressure 138 mm[Hg] Sidney Joya MD Work Phone: [facility] 11-09-2024 10:55-0400 Body mass index (BMI) [Ratio] 31.75 kg/m2 Delvin Ron BOAT HOP.REGULATORY LEADER Work Phone: [facility] 11-09-2024 10:55-0400 Body temperature 98.1 [degF] Delvin Ron BOAT HOP.REGULATORY LEADER Work Phone: [facility] 11-09-2024 10:55-0400 Body weight 83.9 kg Delvin Ron BOAT HOP.REGULATORY LEADER Work Phone: [facility] 11-09-2024 10:55-0400 Diastolic blood pressure 70 mm[Hg] Delvin Ron BOAT HOP.REGULATORY LEADER Work Phone: [facility] 11-09-2024 10:55-0400 Heart rate 99 /min Delvin Ron BOAT HOP.REGULATORY LEADER Work Phone: [facility] 11-09-2024 10:55-0400 SaO2% (BldA) [Mass fraction] 94 % Delvin Ron BOAT HOP.REGULATORY LEADER Work Phone: [facility] 11-09-2024 10:55-0400 Systolic blood pressure 140 mm[Hg] [place] Ron BOAT HOP.REGULATORY LEADER Work Phone: [facility] 11-06-2024 09:51-0400 Body temperature 97.9 [degF] Lab/Port Wstr Work Phone: [facility] 11-06-2024 09:51-0400 Diastolic blood pressure 75 mm[Hg] Lab/Port Wstr Work Phone: [facility] 11-06-2024 09:51-0400 Heart rate 62 /min Lab/Port Wstr Work Phone: [facility] 11-06-2024 09:51-0400 SaO2% (BldA) [Mass fraction] 98 % Lab/Port Wstr Work Phone: [facility] 11-06-2024 09:51-0400 Systolic blood pressure 122 mm[Hg] Lab/Port Wstr Work Phone: [facility] 11-03-2024 09:42-0400 Body temperature 97.81 [degF] Sidney Joya MD Work Phone: [facility] 11-03-2024 09:42-0400 Diastolic blood pressure 74 mm[Hg] Sidney Joya MD Work Phone: [facility] 11-03-2024 09:42-0400 Heart rate 76 /min Sidney Joya MD Work Phone: [facility] 11-03-2024 09:42-0400 SaO2% (BldA) [Mass fraction] 97 % Sidney Joya MD Work Phone: [facility] 11-03-2024 09:42-0400 Systolic blood pressure 152 mm[Hg] Sidney Joya MD Work Phone: [facility] 11-02-2024 09:34-0400 Body temperature 97.81 [degF] Treatment Wstr Work Phone: [facility] 11-02-2024 09:34-0400 Diastolic blood pressure 80 mm[Hg] Treatment Wstr Work Phone: [facility] 11-02-2024 09:34-0400 Heart rate 77 /min Treatment Wstr Work Phone: [facility] 11-02-2024 09:34-0400 Respiratory rate 18 /min Treatment Wstr Work Phone: [facility] 11-02-2024 09:34-0400 SaO2% (BldA) [Mass fraction] 95 % Treatment Wstr Work Phone: [facility] 11-02-2024 09:34-0400 Systolic blood pressure 136 mm[Hg] Treatment Wstr Work Phone: [facility] 10-30-2024 09:17-0400 Body mass index (BMI) [Ratio] 33.33 kg/m2 Josh Bennett DO Work Phone: [facility] 10-30-2024 09:17-0400 Body temperature 97.59 [degF] Josh Bennett DO Work Phone: [facility] 10-30-2024 09:17-0400 Body weight 88.22 kg Josh Bennett DO Work Phone: [facility] 10-30-2024 09:17-0400 Diastolic blood pressure 75 mm[Hg] Josh Bennett DO Work Phone: [facility] 10-30-2024 09:17-0400 Heart rate 77 /min Josh Bennett DO Work Phone: [facility] 10-30-2024 09:17-0400 SaO2% (BldA) [Mass fraction] 96 % Josh Bennett DO Work Phone: [facility] 10-30-2024 09:17-0400 Systolic blood pressure 125 mm[Hg] Josh Bennett DO Work Phone: [facility] 10-30-2024 03:30-0400 Body temperature 97.1 [degF] Julio Arriaga 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-C Work Phone: [facility] 10-30-2024 03:30-0400 Diastolic blood pressure 78 mm[Hg] Julio Arriaga 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-C Work Phone: [facility] 10-30-2024 03:30-0400 Heart rate 74 /min Julio Arriaga 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-C Work Phone: [facility] 10-30-2024 03:30-0400 Respiratory rate 18 /min Julio Arriaga 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-C Work Phone: [facility] 10-30-2024 03:30-0400 SaO2% (BldA) [Mass fraction] 97 % Julio Arriaga 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-C Work Phone: [facility] 10-30-2024 03:30-0400 Systolic blood pressure 136 mm[Hg] Julio Arriaga 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-C Work Phone: [facility] 10-30-2024 00:58-0400 Body height 157.48 cm Julio Arriaga 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-C Work Phone: [facility] 10-30-2024 00:58-0400 Body mass index (BMI) [Ratio] 35.5 kg/m2 Julio Arriaga 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-C Work Phone: [facility] 10-30-2024 00:58-0400 Body weight 88.1 kg Julio Arriaga 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-C Work Phone: [facility] 10-27-2024 09:47-0400 Body mass index (BMI) [Ratio] 33.48 kg/m2 Ricci Abreu MD Work Phone: [facility] 10-27-2024 09:47-0400 Body temperature 98.01 [degF] Ricci Abreu MD Work Phone: [facility] 10-27-2024 09:47-0400 Body weight 88.63 kg Ricci Abreu MD Work Phone: [facility] 10-27-2024 09:47-0400 Diastolic blood pressure 83 mm[Hg] Ricci Abreu MD Work Phone: [facility] 10-27-2024 09:47-0400 Heart rate 78 /min Ricci Abreu MD Work Phone: [facility] 10-27-2024 09:47-0400 SaO2% (BldA) [Mass fraction] 96 % Ricci Abreu MD Work Phone: [facility] 10-27-2024 09:47-0400 Systolic blood pressure 151 mm[Hg] Ricci Abreu MD Work Phone: [facility] 10-24-2024 23:00-0400 Body temperature 98.2 [degF] Julio Arriaga 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-C Work Phone: [facility] 10-24-2024 23:00-0400 Diastolic blood pressure 70 mm[Hg] Julio Arriaga 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-C Work Phone: [facility] 10-24-2024 23:00-0400 Heart rate 80 /min Julio Arriaga 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-C Work Phone: [facility] 10-24-2024 23:00-0400 Respiratory rate 12 /min Julio Arriaga 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-C Work Phone: [facility] 10-24-2024 23:00-0400 SaO2% (BldA) [Mass fraction] 96 % Julio Arriaga 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-C Work Phone: [facility] 10-24-2024 23:00-0400 Systolic blood pressure 150 mm[Hg] Julio Arriaga 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-C Work Phone: [facility] 10-24-2024 21:03-0400 Body mass index (BMI) [Ratio] 36.3 kg/m2 Julio Arriaga 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-C Work Phone: [facility] 10-24-2024 21:03-0400 Body weight 90 kg Julio Arriaga 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-C Work Phone: [facility] 10-24-2024 20:58-0400 Body height 157.48 cm Julio Arriaga 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-C Work Phone: [facility] 10-20-2024 09:34-0400 Body mass index (BMI) [Ratio] 33.62 kg/m2 Shawn Beltran MD Work Phone: [facility] 10-20-2024 09:34-0400 Body temperature 98.6 [degF] Shawn Beltran MD Work Phone: [facility] 10-20-2024 09:34-0400 Body weight 89 kg Shawn Beltran MD Work Phone: [facility] 10-20-2024 09:34-0400 Diastolic blood pressure 83 mm[Hg] Shawn Beltran MD Work Phone: [facility] Comment on above: hasn't taken BP meds 10-20-2024 09:34-0400 Heart rate 90 /min Shawn Beltran MD Work Phone: [facility] 10-20-2024 09:34-0400 Respiratory rate 20 /min Shawn Beltran MD Work Phone: [facility] 10-20-2024 09:34-0400 SaO2% (BldA) [Mass fraction] 97 % Shawn Beltran MD Work Phone: [facility] 10-20-2024 09:34-0400 Systolic blood pressure 163 mm[Hg] Shawn Beltran MD Work Phone: [facility] Comment on above: hasn't taken BP meds 10-16-2024 09:52-0400 Body mass index (BMI) [Ratio] 33.47 kg/m2 Treatment Wstr Work Phone: [facility] 10-16-2024 09:52-0400 Body temperature 98.2 [degF] Treatment Wstr Work Phone: [facility] 10-16-2024 09:52-0400 Body weight 88.6 kg Treatment Wstr Work Phone: [facility] 10-16-2024 09:52-0400 Diastolic blood pressure 77 mm[Hg] Treatment Wstr Work Phone: [facility] 10-16-2024 09:52-0400 Heart rate 87 /min Treatment Wstr Work Phone: [facility] 10-16-2024 09:52-0400 SaO2% (BldA) [Mass fraction] 96 % Treatment Wstr Work Phone: [facility] 10-16-2024 09:52-0400 Systolic blood pressure 152 mm[Hg] Treatment Wstr Work Phone: [facility] 10-13-2024 09:47-0400 Body mass index (BMI) [Ratio] 33.31 kg/m2 Sidney Joya MD Work Phone: [facility] 10-13-2024 09:47-0400 Body temperature 98.4 [degF] Sidney Joya MD Work Phone: [facility] 10-13-2024 09:47-0400 Body weight 88.18 kg Sidney Joya MD Work Phone: [facility] 10-13-2024 09:47-0400 Diastolic blood pressure 58 mm[Hg] Sidney Joya MD Work Phone: [facility] 10-13-2024 09:47-0400 Heart rate 79 /min Sidney Joya MD Work Phone: [facility] 10-13-2024 09:47-0400 SaO2% (BldA) [Mass fraction] 97 % Sidney Joya MD Work Phone: [facility] 10-13-2024 09:47-0400 Systolic blood pressure 121 mm[Hg] Sidney Joya MD Work Phone: [facility] 10-07-2024 09:52-0400 Body temperature 97.81 [degF] Treatment Wstr Work Phone: [facility] 10-07-2024 09:52-0400 Diastolic blood pressure 76 mm[Hg] Treatment Wstr Work Phone: [facility] 10-07-2024 09:52-0400 Heart rate 94 /min Treatment Wstr Work Phone: [facility] 10-07-2024 09:52-0400 SaO2% (BldA) [Mass fraction] 93 % Treatment Wstr Work Phone: [facility] 10-07-2024 09:52-0400 Systolic blood pressure 135 mm[Hg] Treatment Wstr Work Phone: [facility] 10-06-2024 09:50-0400 Body temperature 98.01 [degF] Sidney Joya MD Work Phone: [facility] 10-06-2024 09:50-0400 Diastolic blood pressure 80 mm[Hg] Sidney Joya MD Work Phone: [facility] 10-06-2024 09:50-0400 Heart rate 78 /min Sidney Joya MD Work Phone: [facility] 10-06-2024 09:50-0400 Respiratory rate 18 /min Sidney Joya MD Work Phone: [facility] 10-06-2024 09:50-0400 SaO2% (BldA) [Mass fraction] 99 % Sidney Joya MD Work Phone: [facility] 10-06-2024 09:50-0400 Systolic blood pressure 153 mm[Hg] Sidney Joya MD Work Phone: [facility] 10-05-2024 09:23-0400 Body height 162.7 cm Treatment Wstr Work Phone: [facility] 10-05-2024 09:23-0400 Body mass index (BMI) [Ratio] 33.33 kg/m2 Treatment Wstr Work Phone: [facility] 10-05-2024 09:23-0400 Body temperature 97 [degF] Treatment Wstr Work Phone: [facility] 10-05-2024 09:23-0400 Body weight 88.22 kg Treatment Wstr Work Phone: [facility] 10-05-2024 09:23-0400 Diastolic blood pressure 69 mm[Hg] Treatment Wstr Work Phone: [facility] 10-05-2024 09:23-0400 Heart rate 63 /min Treatment Wstr Work Phone: [facility] 10-05-2024 09:23-0400 SaO2% (BldA) [Mass fraction] 95 % Treatment Wstr Work Phone: [facility] 10-05-2024 09:23-0400 Systolic blood pressure 142 mm[Hg] Treatment Wstr Work Phone: [facility] 10-02-2024 10:00-0500 Body height 157.48 cm Julio ECHEVARRIA Work Phone: [facility] 10-02-2024 10:00-0500 Body mass index (BMI) [Ratio] 34.4 kg/m2 Julio Arriaga 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-C Work Phone: [facility] 10-02-2024 10:00-0500 Body temperature 97.5 [degF] Julio Arriaga 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-C Work Phone: [facility] 10-02-2024 10:00-0500 Body weight 85.27 kg Julio Arriaga 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-C Work Phone: [facility] 10-02-2024 10:00-0500 Diastolic blood pressure 75 mm[Hg] Julio Arriaga 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-C Work Phone: [facility] 10-02-2024 10:00-0500 Heart rate 72 /min Julio Arriaga 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-C Work Phone: [facility] 10-02-2024 10:00-0500 Respiratory rate 16 /min Julio Arriaga 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-C Work Phone: [facility] 10-02-2024 10:00-0500 SaO2% (BldA) [Mass fraction] 95 % Julio Arriaga 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-C Work Phone: [facility] 10-02-2024 10:00-0500 Systolic blood pressure 172 mm[Hg] Julio Arriaga 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-C Work Phone: [facility] 09-30-2024 09:21-0500 Body mass index (BMI) [Ratio] 33.98 kg/m2 Juan José Cheema MD Work Phone: [facility] 09-30-2024 09:21-0500 Body weight 88.09 kg Juan José Cheema MD Work Phone: [facility] 09-30-2024 09:21-0500 Diastolic blood pressure 68 mm[Hg] Juan José Cheema MD Work Phone: [facility] 09-30-2024 09:21-0500 Systolic blood pressure 122 mm[Hg] Juan José Cheema MD Work Phone: [facility] 09-25-2024 14:00-0500 Body temperature 98.1 [degF] Julio Arriaga 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-C Work Phone: [facility] 09-25-2024 14:00-0500 Diastolic blood pressure 69 mm[Hg] Julio Arriaga 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-C Work Phone: [facility] 09-25-2024 14:00-0500 Heart rate 95 /min Julio Arriaga 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-C Work Phone: [facility] 09-25-2024 14:00-0500 Respiratory rate 18 /min Julio Arriaga 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-C Work Phone: [facility] 09-25-2024 14:00-0500 SaO2% (BldA) [Mass fraction] 96 % Julio Arriaga 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-C Work Phone: [facility] 09-25-2024 14:00-0500 Systolic blood pressure 154 mm[Hg] Julio Arriaga 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-C Work Phone: [facility] 09-24-2024 18:46-0500 Body mass index (BMI) [Ratio] 33.3 kg/m2 Julio Arriaga 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-C Work Phone: [facility] 09-24-2024 18:46-0500 Body weight 85.27 kg Julio Arriaga 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-C Work Phone: [facility] 09-24-2024 18:22-0500 Body mass index (BMI) [Ratio] 33.76 kg/m2 Kimmy Dixon APRN.REGULATORY LEADER Work Phone: [facility] 09-24-2024 18:22-0500 Body temperature 98.2 [degF] Kimmy Dixon APRN.REGULATORY LEADER Work Phone: [facility] 09-24-2024 18:22-0500 Body weight 87.5 kg Kimmy Dixon APRN.REGULATORY LEADER Work Phone: [facility] 09-24-2024 18:22-0500 Diastolic blood pressure 72 mm[Hg] Kimmy Zack BOAT HOP.REGULATORY LEADER Work Phone: [facility] 09-24-2024 18:22-0500 Heart rate 90 /min Kimmy Zack BOAT HOP.REGULATORY LEADER Work Phone: [facility] 09-24-2024 18:22-0500 Respiratory rate 18 /min Kimmy Dixon BOAT HOP.REGULATORY LEADER Work Phone: [facility] 09-24-2024 18:22-0500 SaO2% (BldA) [Mass fraction] 97 % Kimmy Zack BOAT HOP.REGULATORY LEADER Work Phone: [facility] 09-24-2024 18:22-0500 Systolic blood pressure 139 mm[Hg] Kimmy James BOAT HOP.REGULATORY LEADER Work Phone: [facility] 09-17-2024 10:23-0500 Body mass index (BMI) [Ratio] 33.6 kg/m2 Sidney Joya MD Work Phone: [facility] 09-17-2024 10:23-0500 Body temperature 96.69 [degF] Sidney Joya MD Work Phone: [facility] 09-17-2024 10:23-0500 Body weight 87.09 kg Sidney Joya MD Work Phone: [facility] 09-17-2024 10:23-0500 Diastolic blood pressure 80 mm[Hg] Sidney Joya MD Work Phone: [facility] 09-17-2024 10:23-0500 Heart rate 86 /min Sidney Joya MD Work Phone: [facility] 09-17-2024 10:23-0500 Respiratory rate 17 /min Sidney Joya MD Work Phone: [facility] 09-17-2024 10:23-0500 SaO2% (BldA) [Mass fraction] 96 % Sidney Joya MD Work Phone: [facility] 09-17-2024 10:23-0500 Systolic blood pressure 122 mm[Hg] Sidney Joya MD Work Phone: [facility] 09-15-2024 15:15-0500 Body height 161 cm Josh Bennett DO Work Phone: [facility] 09-15-2024 15:15-0500 Body mass index (BMI) [Ratio] 33.86 kg/m2 Josh Bennett DO Work Phone: [facility] 09-15-2024 15:15-0500 Body temperature 98.2 [degF] Josh Bennett DO Work Phone: [facility] 09-15-2024 15:15-0500 Body weight 87.77 kg Josh Bennett DO Work Phone: [facility] 09-15-2024 15:15-0500 Diastolic blood pressure 82 mm[Hg] Josh Bennett DO Work Phone: [facility] 09-15-2024 15:15-0500 Heart rate 82 /min Josh Bennett DO Work Phone: [facility] 09-15-2024 15:15-0500 SaO2% (BldA) [Mass fraction] 95 % Josh Bennett DO Work Phone: [facility] 09-15-2024 15:15-0500 Systolic blood pressure 149 mm[Hg] Josh Bennett DO Work Phone: [facility] 09-03-2024 16:32-0500 Body temperature 98.2 [degF] Julio Arriaga 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-C Work Phone: [facility] 09-03-2024 16:32-0500 Diastolic blood pressure 54 mm[Hg] Julio Arriaga 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-C Work Phone: [facility] 09-03-2024 16:32-0500 Heart rate 82 /min Julio Arriaga 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-C Work Phone: [facility] 09-03-2024 16:32-0500 Respiratory rate 19 /min Julio Arriaga 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-C Work Phone: [facility] 09-03-2024 16:32-0500 SaO2% (BldA) [Mass fraction] 93 % Julio Arriaga 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-C Work Phone: [facility] 09-03-2024 16:32-0500 Systolic blood pressure 119 mm[Hg] Julio Arriaga 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-C Work Phone: [facility] 09-03-2024 16:08-0500 Inhaled oxygen flow rate 3 L/min Julio Arriaga 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-C Work Phone: [facility] 09-03-2024 14:00-0500 Body weight 95.1 kg Julio Arriaga 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-C Work Phone: [facility] 09-02-2024 18:46-0500 Body mass index (BMI) [Ratio] 37.1 kg/m2 Julio Arriaga 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-C Work Phone: [facility] 09-02-2024 09:58-0500 Body mass index (BMI) [Ratio] 34.77 kg/m2 Kimmy Dixon APRN.REGULATORY LEADER Work Phone: [facility] 09-02-2024 09:58-0500 Body temperature 97 [degF] Kimmy Dixon APRN.REGULATORY LEADER Work Phone: [facility] 09-02-2024 09:58-0500 Body weight 89 kg Kimmy Dixon APRN.REGULATORY LEADER Work Phone: [facility] 09-02-2024 09:58-0500 Diastolic blood pressure 72 mm[Hg] Kimmy Dixon APRN.REGULATORY LEADER Work Phone: [facility] 09-02-2024 09:58-0500 Heart rate 87 /min Kimmy Dixon APRN.REGULATORY LEADER Work Phone: [facility] 09-02-2024 09:58-0500 Respiratory rate 18 /min Kimmy Dixon APRN.REGULATORY LEADER Work Phone: [facility] 09-02-2024 09:58-0500 SaO2% (BldA) [Mass fraction] 98 % Kimmy Dixon APRN.REGULATORY LEADER Work Phone: [facility] 09-02-2024 09:58-0500 Systolic blood pressure 122 mm[Hg] Kimmy Dixon APRN.REGULATORY LEADER Work Phone: [facility] 07-02-2024 08:00-0500 Body temperature 97.5 [degF] Treatment Wstr Work Phone: [facility] 07-02-2024 08:00-0500 Diastolic blood pressure 68 mm[Hg] Treatment Wstr Work Phone: [facility] 07-02-2024 08:00-0500 Heart rate 79 /min Treatment Wstr Work Phone: [facility] 07-02-2024 08:00-0500 Respiratory rate 20 /min Treatment Wstr Work Phone: [facility] 07-02-2024 08:00-0500 SaO2% (BldA) [Mass fraction] 97 % Treatment Wstr Work Phone: [facility] 07-02-2024 08:00-0500 Systolic blood pressure 176 mm[Hg] Treatment Wstr Work Phone: [facility] 06-24-2024 09:12-0500 Body temperature 97.81 [degF] Treatment Wstr Work Phone: [facility] 06-24-2024 09:12-0500 Diastolic blood pressure 87 mm[Hg] Treatment Wstr Work Phone: [facility] 06-24-2024 09:12-0500 Heart rate 86 /min Treatment Wstr Work Phone: [facility] 06-24-2024 09:12-0500 Respiratory rate 20 /min Treatment Wstr Work Phone: [facility] 06-24-2024 09:12-0500 SaO2% (BldA) [Mass fraction] 97 % Treatment Wstr Work Phone: [facility] 06-24-2024 09:12-0500 Systolic blood pressure 171 mm[Hg] Treatment Wstr Work Phone: [facility] 06-18-2024 09:57-0500 Body temperature 97.39 [degF] Treatment Wstr Work Phone: [facility] 06-18-2024 09:57-0500 Heart rate 86 /min Treatment Wstr Work Phone: [facility] 06-18-2024 09:57-0500 SaO2% (BldA) [Mass fraction] 96 % Treatment Wstr Work Phone: [facility] 06-15-2024 13:42-0500 Body height 160 cm Josh Masci DO Work Phone: [facility] 06-15-2024 13:42-0500 Body mass index (BMI) [Ratio] 35.17 kg/m2 Josh Masci DO Work Phone: [facility] 06-15-2024 13:42-0500 Body temperature 97.3 [degF] Josh Masci DO Work Phone: [facility] 06-15-2024 13:42-0500 Body weight 90.04 kg Josh Masci DO Work Phone: [facility] 06-15-2024 13:42-0500 Diastolic blood pressure 72 mm[Hg] Josh Masci DO Work Phone: [facility] 06-15-2024 13:42-0500 Heart rate 77 /min Josh Masci DO Work Phone: [facility] 06-15-2024 13:42-0500 SaO2% (BldA) [Mass fraction] 96 % Josh Masci DO Work Phone: [facility] 06-15-2024 13:42-0500 Systolic blood pressure 118 mm[Hg] Josh Masci DO Work Phone: [facility] 05-21-2024 13:18-0400 Body mass index (BMI) [Ratio] 35 kg/m2 [facility] 05-21-2024 13:18-0400 Body temperature 97.2 [degF] [facility] 05-21-2024 13:18-0400 Body weight 89.63 kg [facility] 05-21-2024 13:18-0400 Diastolic blood pressure 74 mm[Hg] [facility] 05-21-2024 13:18-0400 Heart rate 86 /min [facility] 05-21-2024 13:18-0400 Respiratory rate 20 /min [facility] 05-21-2024 13:18-0400 SaO2% (BldA) [Mass fraction] 96 % [facility] 05-21-2024 13:18-0400 Systolic blood pressure 146 mm[Hg] [facility] 04-01-2024 14:37-0400 Body mass index (BMI) [Ratio] 34.58 kg/m2 [facility] 04-01-2024 14:37-0400 Body temperature 98.4 [degF] [facility] 04-01-2024 14:37-0400 Body weight 88.54 kg [facility] 04-01-2024 14:37-0400 Diastolic blood pressure 60 mm[Hg] [facility] 04-01-2024 14:37-0400 Heart rate 71 /min [facility] 04-01-2024 14:37-0400 Respiratory rate 18 /min [facility] 04-01-2024 14:37-0400 SaO2% (BldA) [Mass fraction] 96 % [facility] 04-01-2024 14:37-0400 Systolic blood pressure 149 mm[Hg] [facility] 02-26-2024 10:01-0400 Body mass index (BMI) [Ratio] 33.55 kg/m2 [facility] 02-26-2024 10:01-0400 Body temperature 97.11 [degF] [facility] 02-26-2024 10:01-0400 Body weight 85.91 kg [facility] 02-26-2024 10:01-0400 Diastolic blood pressure 80 mm[Hg] [facility] 02-26-2024 10:01-0400 Heart rate 77 /min [facility] 02-26-2024 10:01-0400 Respiratory rate 16 /min [facility] 02-26-2024 10:01-0400 Systolic blood pressure 165 mm[Hg] [facility] 01-29-2024 09:36-0400 Body mass index (BMI) [Ratio] 34.05 kg/m2 [facility] 01-29-2024 09:36-0400 Body temperature 97.9 [degF] [facility] 01-29-2024 09:36-0400 Body weight 87.18 kg [facility] 01-29-2024 09:36-0400 Diastolic blood pressure 66 mm[Hg] [facility] 01-29-2024 09:36-0400 Heart rate 74 /min [facility] 01-29-2024 09:36-0400 Respiratory rate 18 /min [facility] 01-29-2024 09:36-0400 SaO2% (BldA) [Mass fraction] 97 % [facility] 01-29-2024 09:36-0400 Systolic blood pressure 154 mm[Hg] [facility] 12-31-2023 10:28-0400 Body mass index (BMI) [Ratio] 34.93 kg/m2 [facility] 12-31-2023 10:28-0400 Body temperature 98.1 [degF] [facility] 12-31-2023 10:28-0400 Body weight 89.45 kg [facility] 12-31-2023 10:28-0400 Diastolic blood pressure 61 mm[Hg] [facility] 12-31-2023 10:28-0400 Heart rate 79 /min [facility] 12-31-2023 10:28-0400 Respiratory rate 18 /min [facility] 12-31-2023 10:28-0400 SaO2% (BldA) [Mass fraction] 96 % [facility] 12-31-2023 10:28-0400 Systolic blood pressure 137 mm[Hg] [facility] 11-21-2023 10:58-0400 Body height 160 cm Jennifer Arias MD Work Phone: [facility] 11-21-2023 10:58-0400 Body mass index (BMI) [Ratio] 35.43 kg/m2 Jennifer Arias MD Work Phone: [facility] 11-21-2023 10:58-0400 Body temperature 98.01 [degF] Jennifer Arias MD Work Phone: [facility] 11-21-2023 10:58-0400 Body weight 90.72 kg Jennifer Arias MD Work Phone: [facility] 11-21-2023 10:58-0400 Diastolic blood pressure 82 mm[Hg] Jennifer Arias MD Work Phone: [facility] 11-21-2023 10:58-0400 Heart rate 81 /min Jennifer Arias MD Work Phone: [facility] 11-21-2023 10:58-0400 Respiratory rate 10 /min Jennifer Arias MD Work Phone: [facility] 11-21-2023 10:58-0400 Systolic blood pressure 147 mm[Hg] Jennifer Arias MD Work Phone: [facility] 11-20-2023 10:25-0400 Body temperature 98.2 [degF] [facility] 11-20-2023 10:25-0400 Diastolic blood pressure 65 mm[Hg] [facility] 11-20-2023 10:25-0400 Heart rate 72 /min [facility] 11-20-2023 10:25-0400 Respiratory rate 18 /min [facility] 11-20-2023 10:25-0400 SaO2% (BldA) [Mass fraction] 96 % [facility] 11-20-2023 10:25-0400 Systolic blood pressure 138 mm[Hg] [facility] 10-19-2023 20:04-0400 Body temperature 98.4 [degF] SINAI Arriaga 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 Work Phone: [facility] 10-19-2023 20:04-0400 Diastolic blood pressure 59 mm[Hg] SINAI Arriaga 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 Work Phone: [facility] 10-19-2023 20:04-0400 Heart rate 75 /min 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Rowan Arriaga 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 Work Phone: [facility] 10-19-2023 20:04-0400 Respiratory rate 20 /min 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-Marga Arriaga 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 Work Phone: [facility] 10-19-2023 20:04-0400 SaO2% (BldA) [Mass fraction] 96 % 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-Marga Arriaga 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 Work Phone: [facility] 10-19-2023 20:04-0400 Systolic blood pressure 148 mm[Hg] 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-Marga Arriaga 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 Work Phone: [facility] 10-19-2023 15:17-0400 Body height 160.02 cm 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Rowan Arriaga 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 Work Phone: [facility] 10-19-2023 15:17-0400 Body mass index (BMI) [Ratio] 36.1 kg/m2 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Rowan Arriaga 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 Work Phone: [facility] 10-19-2023 15:17-0400 Body weight 92.4 kg 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-Marga Arriaga 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 Work Phone: [facility] 09-26-2023 10:27-0500 Body temperature 97.9 [degF] [facility] 09-26-2023 10:27-0500 Body weight 89.36 kg [facility] 09-26-2023 10:27-0500 Diastolic blood pressure 51 mm[Hg] [facility] 09-26-2023 10:27-0500 Heart rate 78 /min [facility] 09-26-2023 10:27-0500 Respiratory rate 18 /min [facility] 09-26-2023 10:27-0500 SaO2% (BldA) [Mass fraction] 98 % [facility] 09-26-2023 10:27-0500 Systolic blood pressure 151 mm[Hg] [facility] 08-30-2023 13:14-0500 Body temperature 97.5 [degF] [facility] 08-30-2023 13:14-0500 Body weight 89.72 kg [facility] 08-30-2023 13:14-0500 Diastolic blood pressure 74 mm[Hg] [facility] 08-30-2023 13:14-0500 Heart rate 79 /min [facility] 08-30-2023 13:14-0500 Respiratory rate 16 /min [facility] 08-30-2023 13:14-0500 SaO2% (BldA) [Mass fraction] 98 % [facility] 08-30-2023 13:14-0500 Systolic blood pressure 155 mm[Hg] [facility] 07-25-2023 13:54-0500 Diastolic blood pressure 66 mm[Hg] 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-Marga Arriaga 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 Work Phone: [facility] 07-25-2023 13:54-0500 Heart rate 84 /min 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-Marga Arriaga 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 Work Phone: [facility] 07-25-2023 13:54-0500 Respiratory rate 16 /min 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-Marga Arriaga 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 Work Phone: [facility] 07-25-2023 13:54-0500 SaO2% (BldA) [Mass fraction] 98 % 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-Marga Arriaga 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 Work Phone: [facility] 07-25-2023 13:54-0500 Systolic blood pressure 145 mm[Hg] 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-Marga Arriaga 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 Work Phone: [facility] 07-25-2023 12:14-0500 Body height 160.02 cm 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Rowan Arriaga 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 Work Phone: [facility] 07-25-2023 12:14-0500 Body mass index (BMI) [Ratio] 32.8 kg/m2 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Rowan Arriaga 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 Work Phone: [facility] 07-25-2023 12:14-0500 Body weight 83.91 kg 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Rowan Arriaga 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 Work Phone: [facility] 07-03-2023 11:35-0500 Body weight 85.19 kg Chair Bath Work Phone: [facility] 05-27-2023 13:03-0400 Body temperature 98.29 [degF] Chair Bath Work Phone: [facility] 05-27-2023 13:03-0400 Body weight 83.92 kg Chair Bath Work Phone: [facility] 05-27-2023 13:03-0400 Diastolic blood pressure 73 mm[Hg] Chair Bath Work Phone: [facility] 05-27-2023 13:03-0400 Heart rate 80 /min Chair Bath Work Phone: [facility] 05-27-2023 13:03-0400 Respiratory rate 18 /min Chair Bath Work Phone: [facility] 05-27-2023 13:03-0400 Systolic blood pressure 156 mm[Hg] Chair Bath Work Phone: [facility] 05-21-2023 11:05-0400 Body height 160 cm Sarah Barile PA-C Work Phone: [facility] 05-21-2023 11:05-0400 Body temperature 96.69 [degF] Sarah Barile PA-C Work Phone: [facility] 05-21-2023 11:05-0400 Body weight 84.55 kg Sarah Barile PA-C Work Phone: [facility] 05-21-2023 11:05-0400 Diastolic blood pressure 63 mm[Hg] Sarah Barile PA-C Work Phone: [facility] 05-21-2023 11:05-0400 Heart rate 81 /min Sarah Barile PA-C Work Phone: [facility] 05-21-2023 11:05-0400 SaO2% (BldA) [Mass fraction] 92 % Sarah Barile PA-C Work Phone: [facility] 05-21-2023 11:05-0400 Systolic blood pressure 140 mm[Hg] Sarah Pearson PA-C Work Phone: [facility] 04-25-2023 15:21-0400 Diastolic blood pressure 75 mm[Hg] Bed Bath Work Phone: [facility] 04-25-2023 15:21-0400 Heart rate 68 /min Bed Bath Work Phone: [facility] 04-25-2023 15:21-0400 Systolic blood pressure 127 mm[Hg] Bed Bath Work Phone: [facility] 04-25-2023 15:19-0400 Body weight 83.37 kg Bed Bath Work Phone: [facility] 04-25-2023 12:22-0400 Body height 161.3 cm Bed Bath Work Phone: [facility] 04-25-2023 10:47-0400 Body weight 83.37 kg Bed Bath Work Phone: [facility] 01-24-2023 10:01-0400 SaO2% (BldA) [Mass fraction] 96 % [place] 01-24-2023 08:57-0400 Body temperature 98.4 [degF] [facility] 08:57-0400 Diastolic blood pressure 41 mm[facility]Hg[facility] 08:57-0400 Heart rate 84 /min MD GIANNI CERVANTES [facility] 01-24-2023 08:57-0400 Respiratory rate 18 /min MD GIANNI CERVANTES [facility] 01-24-2023 08:57-0400 Systolic blood pressure 125 mm[Hg] [facility]-23-[facility]23 12:51-0400 Body height 159.99 cm MD GIANNI HANNABRADLEY [facility] 01-23-2023 12:51-0400 Body mass index (BMI) [Ratio] 34.3 kg/m2 MD GIANNI HANNABRADLEY [facility] 01-23-2023 12:51-0400 Body weight 88 kg MD GIANNI CERVANTES [facility] 01-23-2023 11:15-0400 Inhaled oxygen flow rate 4 L/min MD GIANNI HANNABRADLEY [facility] 11-21-2022 12:57-0400 Body height 160.[address] Selene Pierre Work Phone: 6(657)365-883058 [place] [address] 11-21-2022 12:57-0400 Body mass index (BMI) [Ratio] 34.3 kg/m2 Dr. Selene Pierre Work Phone: 4(495)302-145658 [place] [address] 11-21-2022 12:57-0400 Body weight 87.[address] Selene Pierre Work Phone: 6(430)072-527058 [place] [address] 11-21-2022 12:57-0400 Diastolic blood pressure 79 mm[Hg] Dr. Selene Pierre Work Phone: 2(821)557-598858 [place] [address] 11-21-2022 12:57-0400 Heart rate 82 /min Dr. Selene Pierre Work Phone: 1(347)579-899258 [place] [address] 11-21-2022 12:57-0400 SaO2% (BldA) [Mass fraction] 92 % Dr. Selene Pierre Work Phone: 8(811)[phone] [place] [address] 11-21-2022 12:57-0400 Systolic blood pressure 160 mm[Hg] Dr. Selene Pierre Work Phone: 7(961)752-308858 [place] [address] 11-06-2022 15:47-0400 Body temperature 97.3 [degF] Dr. Selene Pierre Work Phone: 7(470)762-552958 [place] [address] 11-06-2022 15:47-0400 Diastolic blood pressure 65 mm[Hg] Dr. Selene Pierre Work Phone: 2(122)976-811358 [place] [address] 11-06-2022 15:47-0400 Heart rate 70 /min Dr. Selene Pierre Work Phone: 9(178)974-974958 [place] [address] 11-06-2022 15:47-0400 Respiratory rate 16 /min Dr. Selene Pierre Work Phone: 0(398)213-038558 [place] [address] 11-06-2022 15:47-0400 SaO2% (BldA) [Mass fraction] 100 % Dr. Seelne Pierre Work Phone: [facility] 11-06-2022 15:47-0400 Systolic blood pressure 148 mm[Hg] Dr. Selene Pierre Work Phone: [facility] 11-06-2022 13:10-0400 Body height 160.[address] Selene Pierre Work Phone: [facility] 11-06-2022 13:10-0400 Body mass index (BMI) [Ratio] 32.8 kg/m2 Dr. Selene Pierre Work Phone: [facility] 11-06-2022 13:10-0400 Body weight [address] Selene Pierre Work Phone: [facility] 11-02-2022 10:26-0400 Body temperature 97.2 [degF] [facility] 11-02-2022 10:26-0400 Body weight 86.91 kg [facility] 11-02-2022 10:26-0400 Diastolic blood pressure 67 mm[Hg] [facility] 11-02-2022 10:26-0400 Heart rate 75 /min [facility] 11-02-2022 10:26-0400 SaO2% (BldA) [Mass fraction] 97 % [facility] 11-02-2022 10:26-0400 Systolic blood pressure 134 mm[Hg] [facility] 10-18-2022 11:56-0400 Body height 161.3 cm Jennifer Arias MD Work Phone: [facility] 10-18-2022 11:56-0400 Body temperature 96.01 [degF] Jennifer Arias MD Work Phone: [facility] 10-18-2022 11:56-0400 Body weight 87.54 kg Jennifer Arias MD Work Phone: [facility] 10-18-2022 11:56-0400 Diastolic blood pressure 50 mm[Hg] Jennifer Arias MD Work Phone: [facility] 10-18-2022 11:56-0400 Heart rate 71 /min Jennifer Arias MD Work Phone: [facility] 10-18-2022 11:56-0400 SaO2% (BldA) [Mass fraction] 96 % Jennifer Arias MD Work Phone: [facility] 10-18-2022 11:56-0400 Systolic blood pressure 141 mm[Hg] Jennifer Arias MD Work Phone: [facility] 09-19-2022 10:25-0500 Body height 160.[address] Selene Pierre Work Phone: [facility] 09-19-2022 10:25-0500 Body mass index (BMI) [Ratio] 34.3 kg/m2 Dr. Selene Pierre Work Phone: [facility] 09-19-2022 10:25-0500 Body weight 87.[address] Selene Pierre Work Phone: [facility] 09-19-2022 10:25-0500 Diastolic blood pressure 73 mm[Hg] Dr. Selene Pierre Work Phone: [facility] 09-19-2022 10:25-0500 Heart rate 76 /min Dr. Selene Pierre Work Phone: [facility] 09-19-2022 10:25-0500 SaO2% (BldA) [Mass fraction] 96 % Dr. Selene Pierre Work Phone: [facility] 09-19-2022 10:25-0500 Systolic blood pressure 114 mm[Hg] Dr. Selene Pierre Work Phone: [facility] 09-12-2022 16:21-0500 Body temperature 97.1 [degF] Dr. Selene Pierre Work Phone: [facility] 09-12-2022 16:21-0500 Diastolic blood pressure 74 mm[Hg] Dr. Selene Pierre Work Phone: [facility] 09-12-2022 16:21-0500 Heart rate 80 /min Dr. Selene Pierre Work Phone: [facility] 09-12-2022 16:21-0500 Respiratory rate 14 /min Dr. Selene Pierre Work Phone: [facility] 09-12-2022 16:21-0500 SaO2% (BldA) [Mass fraction] 95 % Dr. Selene Pierre Work Phone: [facility] 09-12-2022 16:21-0500 Systolic blood pressure 130 mm[Hg] Dr. Selene Pierre Work Phone: [facility] 08-15-2022 10:24-0500 Body height 160.[address] Selene Pierre Work Phone: [facility] 08-02-2022 10:50-0500 Heart rate 68 /min Leilani Colmenares BOAT HOP.REGULATORY LEADER Work Phone: [facility] 08-02-2022 10:50-0500 Respiratory rate 16 /min Leilani Colmenares BOAT HOP.REGULATORY LEADER Work Phone: [facility] 08-02-2022 10:50-0500 SaO2% (BldA) [Mass fraction] 95 % Leilani Colmenares BOAT HOP.REGULATORY LEADER Work Phone: [facility] 07-17-2022 11:32-0500 Body temperature 97.3 [degF] Chair Bath Work Phone: [facility] 07-17-2022 11:32-0500 Body weight 90.9 kg Chair Bath Work Phone: [facility] 07-17-2022 11:32-0500 Diastolic blood pressure 82 mm[Hg] Chair Bath Work Phone: [facility] 07-17-2022 11:32-0500 Heart rate 75 /min Chair Bath Work Phone: [facility] 07-17-2022 11:32-0500 SaO2% (BldA) [Mass fraction] 97 % Chair Bath Work Phone: [facility] 07-17-2022 11:32-0500 Systolic blood pressure 174 mm[Hg] Chair Bath Work Phone: [facility] 07-13-2022 09:06-0500 Body temperature 97.9 [degF] Dr. Selene Pierre Work Phone: [facility] 07-13-2022 09:06-0500 Diastolic blood pressure 78 mm[Hg] Dr. Selene Pierre Work Phone: [facility] 07-13-2022 09:06-0500 Heart rate 76 /min Dr. Selene Pierre Work Phone: [facility] 07-13-2022 09:06-0500 Respiratory rate 17 /min Dr. Selene Pierre Work Phone: [facility] 07-13-2022 09:06-0500 SaO2% (BldA) [Mass fraction] 94 % Dr. Selene Pierre Work Phone: [facility] 07-13-2022 09:06-0500 Systolic blood pressure 130 mm[Hg] Dr. Selene Pierre Work Phone: [facility] 06-26-2022 13:48-0500 Body height 160 cm Sarah Barile PA-C Work Phone: [facility] 06-26-2022 13:48-0500 Body temperature 97.81 [degF] Sarah Barile PA-C Work Phone: [facility] 06-26-2022 13:48-0500 Body weight 91.63 kg Sarah Barile PA-C Work Phone: [facility] 06-26-2022 13:48-0500 Diastolic blood pressure 78 mm[Hg] Sarah Barile PA-C Work Phone: [facility] 06-26-2022 13:48-0500 Heart rate 96 /min Sarah Barile PA-C Work Phone: [facility] 06-26-2022 13:48-0500 Respiratory rate 16 /min Sarah Pearson PA-C Work Phone: [facility] 06-26-2022 13:48-0500 Systolic blood pressure 140 mm[Hg] Sarah Pearsno PA-C Work Phone: [facility] 05-16-2022 09:20-0400 Body temperature 97.59 [degF] Sarah De Luna BOAT HOP.REGULATORY LEADER Work Phone: [facility] 05-16-2022 09:20-0400 Body weight 93.89 kg Sarah Friaser BOAT HOP.REGULATORY LEADER Work Phone: [facility] 05-16-2022 09:20-0400 Diastolic blood pressure 72 mm[Hg] Sarah De Luna BOAT HOP.REGULATORY LEADER Work Phone: [facility] 05-16-2022 09:20-0400 Heart rate 98 /min Sarahbenito Friaser BOAT HOP.REGULATORY LEADER Work Phone: [facility] 05-16-2022 09:20-0400 Respiratory rate 18 /min Sarah De Luna BOAT HOP.REGULATORY LEADER Work Phone: [facility] 05-16-2022 09:20-0400 SaO2% (BldA) [Mass fraction] 99 % Sarah De Luna BOAT HOP.REGULATORY LEADER Work Phone: [facility] 05-16-2022 09:20-0400 Systolic blood pressure 138 mm[Hg] Sarah Friaser BOAT HOP.REGULATORY LEADER Work Phone: [facility] 05-03-2022 11:33-0400 Body weight 96.44 kg Bed Bath Work Phone: [facility] 04-05-2022 13:13-0400 Body temperature 97.9 [degF] Bed Bath Work Phone: [facility] 04-05-2022 13:13-0400 Diastolic blood pressure 71 mm[Hg] Bed Bath Work Phone: [facility] 04-05-2022 13:13-0400 Heart rate 74 /min Bed Bath Work Phone: [facility] 04-05-2022 13:13-0400 Respiratory rate 19 /min Bed Bath Work Phone: [facility] 04-05-2022 13:13-0400 Systolic blood pressure 141 mm[Hg] Bed Bath Work Phone: [facility] 03-05-2022 12:58-0400 Body temperature 97.9 [degF] Chair Bath [facility] 03-05-2022 12:58-0400 Body weight 99.16 kg Chair Bath [facility] 03-05-2022 12:58-0400 Diastolic blood pressure 56 mm[Hg] Chair Bath [facility] 03-05-2022 12:58-0400 Heart rate 87 /min Chair Bath [facility] 03-05-2022 12:58-0400 Respiratory rate 20 /min Chair Bath [facility] 03-05-2022 12:58-0400 Systolic blood pressure 142 mm[Hg] Chair Bath [facility] 02-01-2022 09:20-0400 Heart rate 60 /min Leilani Colmenares BOAT HOP.REGULATORY LEADER Work Phone: [facility] 02-01-2022 09:20-0400 Respiratory rate 16 /min Leilani Colmenares BOAT HOP.REGULATORY LEADER Work Phone: [facility] 02-01-2022 09:20-0400 SaO2% (BldA) [Mass fraction] 95 % Leilani Colmenares BOAT HOP.REGULATORY LEADER Work Phone: [facility] 12-28-2021 11:07-0400 Body temperature 97.5 [degF] Chair Bath Work Phone: [facility] 12-28-2021 11:07-0400 Body weight 96.16 kg Chair Bath Work Phone: [facility] 12-28-2021 11:07-0400 Diastolic blood pressure 79 mm[Hg] Chair Bath Work Phone: [facility] 12-28-2021 11:07-0400 Heart rate 75 /min Chair Bath Work Phone: [facility] 12-28-2021 11:07-0400 Respiratory rate 18 /min Chair Bath Work Phone: [facility] 12-28-2021 11:07-0400 Systolic blood pressure 156 mm[Hg] Chair Bath Work Phone: [facility] 11-30-2021 10:16-0400 Body temperature 97.5 [degF] Chair Bath [facility] 11-30-2021 10:16-0400 Body weight 95.94 kg Chair Bath [facility] 11-30-2021 10:16-0400 Diastolic blood pressure 51 mm[Hg] Chair Bath [facility] 11-30-2021 10:16-0400 Heart rate 90 /min Chair Bath [facility] 11-30-2021 10:16-0400 Respiratory rate 18 /min Chair Bath [facility] 11-30-2021 10:16-0400 Systolic blood pressure 140 mm[Hg] Chair Bath [facility] 11-02-2021 10:54-0400 Body temperature 97.5 [degF] Chair Bath Work Phone: [facility] 11-02-2021 10:54-0400 Body weight 95.62 kg Chair Bath Work Phone: [facility] 11-02-2021 10:54-0400 Diastolic blood pressure 79 mm[Hg] Chair Bath Work Phone: [facility] 11-02-2021 10:54-0400 Heart rate 86 /min Chair Bath Work Phone: [facility] 11-02-2021 10:54-0400 Respiratory rate 18 /min Chair Bath Work Phone: [facility] 11-02-2021 10:54-0400 Systolic blood pressure 126 mm[Hg] Chair Bath Work Phone: [facility] 09-01-2021 16:22-0500 Respiratory rate 18 /min SONG ALMEIDA MD [facility] 09-01-2021 15:04-0500 Heart rate 106 /min SONG ALMEIDA MD [facility] 09-01-2021 15:04-0500 Respiratory rate 20 /min SONG ALMEIDA MD [facility] 09-01-2021 10:11-0500 Heart rate 90 /min SONG ALMEIDA MD [facility] 09-01-2021 10:11-0500 Respiratory rate 18 /min SONG ALMEIDA MD [facility] 09-01-2021 08:06-0500 Body temperature 97.88 [degF] SONG ALMEIDA MD [facility] 09-01-2021 08:06-0500 Diastolic blood pressure 60 mm[Hg] SONG ALMEIDA MD [facility] 09-01-2021 08:06-0500 Heart rate 87 /min SONG ALMEIDA MD [facility] 09-01-2021 08:06-0500 Mean blood pressure 81 mm[Hg] SONG ALMEIDA MD [facility] 09-01-2021 08:06-0500 Reason For Taking VItal Signs SONG ALMEIDA MD [facility] 09-01-2021 08:06-0500 Systolic blood pressure 124 mm[Hg] SONG ALMEIDA MD [facility] 09-01-2021 00:09-0500 Body temperature 98.06 [degF] SONG ALMEIDA MD [facility] 09-01-2021 00:09-0500 Diastolic blood pressure 62 mm[Hg] SONG ALMEIDA MD [facility] 09-01-2021 00:09-0500 Reason For Taking VItal Signs SONG ALMEIDA MD [facility] 09-01-2021 00:09-0500 Systolic blood pressure 122 mm[Hg] SONG ALMEIDA MD [facility] 08-31-2021 20:05-0500 Body temperature 98.24 [degF] SONG ALMEIDA MD [facility] 08-31-2021 20:05-0500 Diastolic blood pressure 59 mm[Hg] SONG ALMEIDA MD [facility] 08-31-2021 20:05-0500 Systolic blood pressure 115 mm[Hg] SONG ALMEIDA MD [facility] 08-31-2021 04:04-0500 Heart rate 90 /min SONG ALMEIDA MD [facility] 08-30-2021 19:04-0500 Heart rate 90 /min SONG ALMEIDA MD [facility] 08-30-2021 15:55-0500 Heart rate 90 /min SONG ALMEIDA MD [facility] 08-29-2021 18:28-0500 Body temperature 97.52 [degF] SONG ALMEIDA MD [facility] 08-29-2021 18:28-0500 Diastolic Blood Pressure NBP 65 1 SONG ALMEIDA MD [facility] 08-29-2021 18:28-0500 Mean blood pressure 90 mm[Hg] SONG ALMEIDA MD [facility] 08-29-2021 18:28-0500 Systolic Blood Pressure NBP 155 1 SONG ALMEIDA MD [facility] 08-29-2021 18:15-0500 Diastolic Blood Pressure NBP 59 1 SONG ALMEIDA MD [facility] 08-29-2021 18:15-0500 Mean blood pressure 84 mm[Hg] SNOG ALMEIDA MD [facility] 08-29-2021 18:15-0500 Systolic Blood Pressure NBP 154 1 SONG ALMEIDA MD [facility] 08-29-2021 18:00-0500 Diastolic Blood Pressure NBP 64 1 SONG ALMEIDA MD [facility] 08-29-2021 18:00-0500 Systolic Blood Pressure NBP 143 1 SONG ALMEIDA MD [facility] 08-29-2021 17:33-0500 Body temperature 97.7 [degF] SONG ALMEIDA MD [facility] 08-29-2021 17:20-0500 Body temperature 97.66 [degF] SONG ALMEIDA MD [facility] 08-29-2021 17:15-0500 Body temperature 97.63 [degF] SONG ALMEIDA MD [facility] 08-29-2021 17:10-0500 Body temperature 97.57 [degF] SONG ALMEIDA MD [facility] 08-29-2021 02:41-0500 Body weight 37.89 kg/m2 SONG ALMEIDA MD [facility] 08-29-2021 02:04-0500 Body height 160 cm SONG ALMEIDA MD [facility] 08-29-2021 02:04-0500 Body weight 97 kg SONG ALMEIDA MD [facility] 08-29-2021 02:04-0500 Body weight 37.89 kg/m2 SONG ALMEIDA MD [facility] Encounters Encounter Date Encounter Type Care Provider Facility Start: 04-02-2025 ambulatory Michelle Gan ty:[facility] Start: 04-01-2025 ambulatory Michelle Gan ty:[facility] Start: 03-19-2025 End: 03-19-2025 Telephone encounter Josh Bennett DO Work Phone: Hematology/Oncology Comment on above: AVS 03/19 Start: 03-19-2025 End: 03-19-2025 Patient encounter procedure Josh Bennett DO Work Phone: Hematology/Oncology Start: 03-19-2025 End: 03-19-2025 ambulatory Lab/[place] [facility] Work Phone: Hematology/Oncology Comment on above: Iron deficiency anem ia due to chronic blood loss Malignant neoplasm o f anus (HCC) (Primary Dx); Iron 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 blood loss Start: 03-18-2025 End: 03-18-2025 ambulatory Treatment Rm 15 [place] [facility] Work Phone: Hematology/Oncology Comment on above: Other osteoporosis w ithout current pathological fracture (Primary Dx); Rheumatoid arthritis involving multiple sites with positive rheumatoid factor (HCC) Start: 03-16-2025 End: 03-16-2025 Patient encounter procedure Michelle AGARWALC -[facility] Work Phone: Start: 03-16-2025 End: 03-16-2025 ambulatory Woo Thapa MD Work Phone: -[facility] Start: 03-02-2025 ambulatory Kenya Garcia Facility :[facility] Start: 03-02-2025 Non-patient / Non-visit Dr. Ronny NEWMAN -[facility] Start: 03-02-2025 End: 03-02-2025 Admission to same day surgery center Dr. Kenya Garcia MD -Endoscopy Work Phone: Start: 03-02-2025 End: 03-02-2025 ambulatory Woo Thapa MD Work Phone: -Endoscopy Start: 02-28-2025 ambulatory Julio Roman [facility] Start: 02-27-2025 End: 02-27-2025 Emergency department patient visit Julio AGARWALC Work Phone: -Emergency Department Work Phone: Start: 02-18-2025 End: 02-18-2025 ambulatory Treatment Rm 18 [place] [facility] Work Phone: Hematology/Oncology Comment on above: Other osteoporosis w ithout current pathological fracture (Primary Dx); Rheumatoid arthritis involving multiple sites with positive rheumatoid factor (HCC) Start: 02-17-2025 End: 02-17-2025 Telephone encounter Josh Bennett DO Work Phone: Hematology/Oncology Comment on above: Appointment Start: 02-15-2025 End: 02-15-2025 Telephone encounter Delvin Ron APRN.REGULATORY LEADER Work Phone: Hematology/Oncology Comment on above: Patient Question Start: 02-09-2025 End: 02-10-2025 Telephone encounter Delvin Ron REGULATORY LEADER Work Phone: Hematology/Oncology Start: 02-09-2025 End: 02-09-[address] Kenya Garcia MD -[facility] Work Phone: Start: 02-09-2025 End: 02-09-2025 ambulatory Julio Arriaga NP-C Work Phone: -[facility] Start: 02-05-2025 End: 02-05-2025 ambulatory Treatment Rm 16 [place] [facility] Work Phone: Hematology/Oncology Comment on above: Other osteoporosis w ithout current pathological fracture (Primary Dx); Rheumatoid arthritis involving multiple sites with positive rheumatoid factor (HCC) Start: 02-03-2025 End: 02-03-2025 Refill Jennifer Arias MD Work Phone: [facility] Rheumatology and Arthritis Comment on above: Refill Request Start: 02-02-2025 End: 02-02-2025 Patient encounter procedure Michelle AGARWALC -[facility] Work Phone: Start: 02-02-2025 End: 02-02-2025 ambulatory Julio Arriaga 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-C Work Phone: -[facility] Start: 02-01-2025 End: 02-01-2025 Subsequent hospital visit by physician Mri Radio [facility] (I-Stat/1.5t) Work Phone: Radiology Comment on above: Malignant neoplasm o f anus (HCC) [C21.0] Start: 02-01-2025 End: 02-01-2025 ambulatory Lab/[place] [facility] Work Phone: Hematology/Oncology Comment on above: Anal cancer (HCC) Start: 01-26-2025 Non-patient / Non-visit Dr. Yony Scott MD -[facility] Work Phone: Start: 01-14-2025 End: 01-14-2025 Patient encounter procedure Michelle ECHEVARRIA -[facility] Work Phone: Start: 01-14-2025 End: 01-14-2025 ambulatory Julio ECHEVARRIA Work Phone: [facility] Work Phone: Comment on above: Crohn's disease with out complication, unspecified gastrointestinal tract location (HCC) (Primary Dx); Irritable bowel syndrome with diarrhea Start: 01-13-2025 End: 01-13-2025 Refill Jennifer Arias MD Work Phone: [facility] Rheumatology and Arthritis Comment on above: Refill Request Start: 01-07-2025 End: 01-07-2025 ambulatory Treatment Rm 15 [place] [facility] Work Phone: Hematology/Oncology Comment on above: Rheumatoid arthritis involving multiple sites with positive rheumatoid factor (HCC) (Primary Dx); Other osteoporosis without current pathological fracture Start: 01-05-2025 End: 01-05-2025 Telephone encounter Josh Bennett DO Work Phone: Hematology/Oncology Comment on above: Refill Request Start: 12-27-2024 End: 12-27-2024 Emergency department patient visit Julio ECHEVARRIA Work Phone: -Emergency Department Work Phone: Start: 12-14-2024 ambulatory Andrez Pitts Facility :[facility] Start: 12-11-2024 End: 12-11-2024 Telephone encounter Jennifer Arias MD Work Phone: Hematology/Oncology Comment on above: Patient Update Start: 12-10-2024 End: 12-10-2024 Refill Sarah Pearson PA-C Work Phone: [facility] Rheumatology and Arthritis Comment on above: Refill Request Start: 12-07-2024 End: 12-07-2024 ambulatory SIDNEY JOYA Facility:[facility] Start: 12-07-2024 End: 12-07-2024 Follow-up encounter Sidney Joya MD Work Phone: Radiation Oncology Comment on above: Radiotherapy follow- up (Primary Dx); Anal cancer (HCC) Start: 12-07-2024 End: 12-07-2024 Telemedicine consultation with patient Sidney Joya MD Work Phone: Radiation Oncology Start: 12-04-2024 End: 12-04-2024 Telephone encounter Jennifer Arais MD Work Phone: [facility] Rheumatology and Arthritis Comment on above: Patient Update Start: 11-30-2024 End: 12-10-2024 Telephone encounter [facility] Provider Hematology/Oncology Comment on above: Appointment (Reclast ) 11/30 AVS Start: 11-30-2024 End: 11-30-2024 Telemedicine consultation with patient Jennifer Arias MD Work Phone: [facility] Rheumatology and Arthritis Start: 11-30-2024 End: 11-30-2024 ambulatory JENNIFER ARIAS Facility:[facility] Start: 11-30-2024 End: 11-30-2024 Patient encounter procedure Jennifer Arias MD Work Phone: [facility] Rheumatology and Arthritis Comment on above: Rheumatoid arthritis involving multiple sites with positive rheumatoid factor (HCC) (Primary Dx); Rheumatoid arthritis involving multiple sites, unspecified whether rheumatoid factor present (HCC); Other osteoporosis without current pathological fracture Start: 11-30-2024 End: 11-30-2024 ambulatory Lab/[place] [facility] Work Phone: Hematology/Oncology Comment on above: Anal cancer (HCC) Anal cancer (HCC) (P rimary Dx) Start: 11-26-2024 End: 11-26-2024 Refill Josh Bennett DO Work Phone: Hematology/Oncology Comment on above: Refill Request Start: 11-23-2024 End: 11-23-2024 ambulatory JULIO ARRIAGA Facility:[facility] Start: 11-18-2024 End: 11-18-2024 Refill Josh [...] Request Start: 11-13-2024 End: 11-13-2024 Refill Josh Bennett DO Work Phone: Hematology/Oncology Comment on above: Refill Request Start: 11-13-2024 End: 11-13-2024 ambulatory SIDNEY JOYA Facility:[facility] Start: 11-12-2024 End: 11-12-2024 ambulatory JULIO ARRIAGA Facility:[facility] Start: 11-11-2024 End: 11-11-2024 ambulatory SIDNEY JOYA Facility:[facility] Start: 11-10-2024 End: 11-10-2024 Patient encounter procedure Sidney Joya MD Work Phone: Radiation Oncology Comment on above: Anal cancer (HCC) (P rimary Dx) Start: 11-10-2024 End: 11-10-2024 ambulatory JULIO ARRIAGA Facility:[facility] Start: 11-09-2024 End: 11-09-2024 Patient encounter procedure Delvin Ron BOAT HOP.REGULATORY LEADER Work Phone: Hematology/Oncology Start: 11-09-2024 End: 11-09-2024 ambulatory [facility] [facility] Work Phone: Hematology/Oncology Comment on above: Anal cancer (HCC) (P rimary Dx) Anal cancer (HCC) (P rimary Dx); Chemotherapy induced nausea and vomiting Start: 11-06-2024 End: 11-06-2024 ambulatory Lab/[place] [facility] Work Phone: Hematology/Oncology Comment on above: Anal cancer (HCC) (P rimary Dx) Start: 11-05-2024 End: 11-05-2024 Telephone encounter Raul ALVARENGA Hematology/Oncology Comment on above: Social Work Services ; Financial Concerns Start: 11-05-2024 End: 11-05-2024 ambulatory JULIO ARRIAGA Facility:[facility] Start: 11-04-2024 End: 11-04-2024 ambulatory JULIO ARRIAGA Facility:[facility] Start: 11-03-2024 End: 11-03-2024 Patient encounter procedure Sidney Joya MD Work Phone: Radiation Oncology Comment on above: Anal cancer (HCC) (P rimary Dx) Start: 11-03-2024 End: 11-03-2024 ambulatory JULIO ARRIAGA Facility:[facility] Start: 11-02-2024 End: 11-02-2024 ambulatory Treatment Rm 8 [facility] Work Phone: Hematology/Oncology Comment on above: Anal [...] Start: 10-29-2024 End: 10-29-2024 ambulatory JULIO ARRIAGA Facility:[facility] Start: 10-28-2024 End: 10-28-2024 Telephone encounter Sidney Joya MD Work Phone: Radiation Oncology Comment on above: Patient Update Start: 10-28-2024 End: 10-28-2024 ambulatory JULIO ARRIAGA Facility:[facility] Start: 10-27-2024 End: 10-27-2024 Patient encounter procedure Ricci Abreu MD Work Phone: Radiation Oncology Comment on above: Anal cancer (HCC) (P rimary Dx) Start: 10-27-2024 End: 10-27-2024 ambulatory JULIO ARRIAGA Facility:[facility] Start: 10-26-2024 End: 10-26-2024 Telephone encounter Melisa Ledesma MD Work Phone: Radiation Oncology Comment on above: Patient Update Radiology Pre Proced ure Instructions Patient Question Start: 10-26-2024 End: 10-26-2024 ambulatory JULIO ARRIAGA Facility:[facility] Start: 10-24-2024 End: 10-25-2024 Emergency department patient visit Julio Arriaga 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-C Work Phone: -Emergency Department Work Phone: Start: 10-23-2024 End: 10-23-2024 ambulatory SIDNEY JOYA Facility:[facility] Start: 10-22-2024 End: 10-22-2024 ambulatory Josh Bennett DO Work Phone: Hematology/Oncology Comment on above: Unine specimen Atten tion Roxanne Start: 10-21-2024 End: 10-26-2024 Telephone encounter Josh Bennett DO Work Phone: Hematology/Oncology Comment on above: Appointment Urinary Problem; Pat ient Update Start: 10-21-2024 End: 10-21-2024 ambulatory XILUKAS TOAN Facility:[facility] Start: 10-20-2024 End: 10-20-2024 Patient encounter procedure Shawn Beltran MD Work Phone: Radiation Oncology Comment on above: Anal cancer (HCC) (P rimary Dx) Start: 10-20-2024 End: 10-21-2024 ambulatory Josh Bennett DO Work Phone: Hematology/Oncology Comment on above: PICC line or port Start: 10-19-2024 Non-patient / Non-visit Dr. Lincoln starks MD -[facility] Start: 10-19-2024 End: 10-19-[address] Josh Bennett DO -Cardiovascular Services Work Phone: Start: 10-19-2024 End: 10-19-2024 Orders Only Josh Bennett DO Work Phone: Hematology/Oncology Comment on above: Arm swelling (Primar y Dx); Anal cancer (HCC); PICC (peripherally inserted central catheter) in place Results Anal cancer (HCC) (P rimary Dx) Start: 10-19-2024 End: 10-19-2024 ambulatory Josh Bennett Facility:[facility] Start: 10-16-2024 End: 10-16-2024 Telephone encounter Josh Bennett DO Work Phone: Hematology/Oncology Comment on above: Patient Update (vomi ting and diarrhea) Start: 10-16-2024 End: 10-16-2024 ambulatory Treatment 17 Andrew [facility] Work Phone: Hematology/Oncology Comment on above: Anal cancer (HCC) (P rimary Dx) Start: 10-15-2024 End: 10-15-2024 ambulatory SIDNEY JOYA Facility:[facility] Start: 10-14-2024 ambulatory Julio Arriaga 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 Facil ity:[facility] Start: 10-14-2024 End: 10-14-2024 ambulatory JULIO ARRIAGA Facility:[facility] Start: 10-13-2024 End: 10-13-2024 Patient encounter procedure Sidney Joya MD Work Phone: Radiation Oncology Comment on above: Anal cancer (HCC) (P rimary Dx) Start: 10-13-2024 End: 10-13-2024 ambulatory Treatment Rm 17 [place] [facility] Work Phone: Hematology/Oncology Comment on above: Anal cancer (HCC) (P rimary Dx) Start: 10-12-2024 End: 10-12-2024 Telephone encounter Josh Bennett DO Work Phone: Hematology/Oncology Comment on above: Patient Update Start: 10-12-2024 End: 10-12-2024 ambulatory Lab/[place] [facility] Work Phone: Hematology/Oncology Comment on above: Anal cancer (HCC) Start: 10-12-2024 End: 10-12-2024 ambulatory JULIO ARRIAGA Facility:[facility] Start: 10-09-2024 End: 10-09-2024 ambulatory Lab/[place] [facility] Work Phone: Hematology/Oncology Comment on above: Anal cancer (HCC) (P rimary Dx) Start: 10-08-2024 End: 10-08-2024 Telephone encounter Roxanne Bland RN Hematology/Oncology Comment on above: Portable Sawyer - O ther (Follow-up ) Start: 10-08-2024 End: 10-08-2024 ambulatory Lab/[place] [facility] Work Phone: Hematology/Oncology Comment on above: Anal cancer (HCC) (P rimary Dx) Start: 10-07-2024 End: 12-07-2024 Follow-up encounter Juan José Cheema MD Work Phone: OB/Gynecology Start: 10-07-2024 End: 10-07-2024 ambulatory Treatment Rm 16 [place] [facility] Work Phone: Hematology/Oncology Comment on above: Anal cancer (HCC) (P rimary Dx) Start: 10-06-2024 End: 10-06-2024 Telephone encounter Roxanne Bland RN Hematology/Oncology Comment on above: Portable Sawyer - O ther (C1D1 Post Treatment Call (5FU/Mitomycin) ) Start: 10-06-2024 End: 10-06-2024 ambulatory JULIO ARRIAGA Facility:[facility] Start: 10-06-2024 End: 10-06-2024 Patient encounter procedure Sidney Joya MD Work Phone: Radiation Oncology Comment on above: Anal cancer (HCC) (P rimary Dx) Start: 10-05-2024 End: 12-05-2024 Follow-up encounter Juan José Cheema MD Work Phone: OB/Gynecology Start: 10-05-2024 End: 10-05-2024 ambulatory JULIO ARRIAGA Facility:[facility] Start: 10-05-2024 End: 10-05-2024 ambulatory Treatment Rm 7 [place] [facility] Work Phone: Hematology/Oncology Comment on above: Anal cancer (HCC) (P rimary Dx) Start: 10-02-2024 End: 10-02-2024 ambulatory Julio Arriaga 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-C Work Phone: [facility] Work Phone: Start: 10-02-2024 End: 10-02-[address] Josh Bennett DO -Radiology, [facility] Work Phone: Start: 10-02-2024 End: 10-02-2024 ambulatory Josh Bennett Facility:[facility] Start: 09-30-2024 End: 09-30-2024 ambulatory JULIO ARRIAGA Facility:[facility] Start: 09-30-2024 Encounter for gynecological examination (general) (routine) without abnormal findings SHAWN BELTRAN [facility] Start: 09-30-2024 End: 09-30-2024 Subsequent hospital visit by physician Screen Mammo [facility] Mammogram Comment on above: Encounter for gyneco logical examination (general) (routine) without abnormal findings [Z01.419] Start: 09-30-2024 End: 09-30-2024 ambulatory JOSH BENNETT Facility:[facility] Start: 09-30-2024 End: 09-30-2024 Patient encounter [...] status Juan José Cheema MD Work Phone: [facility] Start: 09-29-2024 End: 10-03-2024 Radiation Oncology Note Sidney Joya MD Work Phone: Radiation Oncology Comment on above: Simulation Note Treatment Planning Start: 09-29-2024 End: 10-06-2024 Patient encounter procedure Sarah Pearson CYMadayMarga Work Phone: [facility] Rheumatology and Arthritis Comment on above: Rheumatoid arthritis involving multiple sites with positive rheumatoid factor (HCC) (Primary Dx); High risk medication use; Vitamin D deficiency; Localized osteoporosis without current pathological fracture; Iron deficiency anemia, unspecified iron deficiency anemia type Start: 09-29-2024 End: 09-29-2024 Telemedicine consultation with patient Sarah Pearson LIZZIE Work Phone: [facility] Rheumatology and Arthritis Start: 09-29-2024 End: 09-30-2024 ambulatory Raul ALVARENGA Hematology/Oncology Start: 09-28-2024 End: 09-29-2024 ambulatory Sarah Pearson LIZZIE Work Phone: [facility] Comment on above: September 29, 2024 appt Start: 09-28-2024 End: 10-02-2024 Telephone encounter Sarah Ingrambhupendra SAMUEL Work Phone: [facility] Comment on above: appointment change Anal cancer (HCC) (P rimary Dx) Start: 09-25-2024 End: 09-25-2024 director medical affairs [facility] Work Phone: Hematology/Oncology Comment on above: Encounter for educat ion (Primary Dx) Start: 09-24-2024 End: 09-25-2024 Emergency department patient visit Dr. Pawel Cason MD -Emergency Department Work Phone: Start: 09-24-2024 End: 09-24-2024 ambulatory JULIO ARRIAGA Facility:[facility] Start: 09-24-2024 End: 09-24-2024 Patient encounter procedure Kimmy Dioxn APRN.CNP Work Phone: [facility] Comment on above: Urinary frequency (P rimary Dx); Pain Start: 09-24-2024 End: 10-07-2024 Telephone encounter Josh Bennett DO Work Phone: Hematology/Oncology Comment on above: Results Start: 09-23-2024 End: 09-23-2024 ambulatory JOSH Froy SABRINA Facility:[facility] Start: 09-23-2024 End: 09-23-2024 Subsequent hospital visit by physician Mri Radio [facility] (I-Stat/1.5t) Work Phone: Radiology Comment on above: Anal cancer (HCC) [C 21.0] Start: 09-22-2024 End: 09-22-2024 Telephone encounter Josh Bennett DO Work Phone: Hematology/Oncology Comment on above: Results Start: 09-18-2024 End: 09-18-2024 Telephone encounter Raul ALVARENGA Hematology/Oncology Comment on above: Social Work Services Start: 09-17-2024 End: 09-17-2024 ambulatory JOSH BENNETT Facility:[facility] Start: 09-17-2024 End: 09-17-2024 Patient encounter procedure Sidney Joya MD Work Phone: Radiation Oncology Comment on above: Anal cancer (HCC) Start: 09-16-2024 End: 09-16-2024 Telephone encounter Josh Bennett DO Work Phone: Hematology/Oncology Comment on above: Orders Start: 09-16-2024 End: 09-16-2024 ambulatory Josh Bennett DO Work Phone: Hematology/Oncology Comment on above: Plavix. Marimar. Sc aggs 1960 Start: 09-15-2024 End: 09-16-2024 Telephone encounter Josh Bennett DO Work Phone: Hematology/Oncology Comment on above: avs 09/15 Refill Request Start: 09-15-2024 End: 09-15-2024 Patient encounter procedure Josh Bennett DO Work Phone: Hematology/Oncology Start: 09-15-2024 End: 09-15-2024 ambulatory Josh Bennett DO Work Phone: Hematology/Oncology Comment on above: Anal cancer (HCC) (P rimary Dx); Right leg pain; Iron 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 blood loss Start: 09-10-2024 End: 09-10-2024 Telephone encounter Jennifer Arias MD Work Phone: [facility] Rheumatology and Arthritis Comment on above: Patient Question Start: 09-09-2024 End: 09-09-2024 Refill Sarah Pearson PA-C Work Phone: [facility] Rheumatology and Arthritis Comment on above: Refill Request Start: 09-07-2024 End: 09-07-2024 Telephone encounter Josh Bennett DO Work Phone: Hematology/Oncology Comment on above: Appointment Start: 09-03-2024 Non-patient / Non-visit Dr. Ronny NEWMAN -[facility] Start: 09-02-2024 ambulatory Kneya Garcia Facility :[facility] Start: 09-02-2024 Non-patient / Non-visit Dr. Ronny NEWMAN -[facility] Start: 09-02-2024 End: 09-03-2024 ambulatory Kenya Garcia Facility:[facility] Start: 09-02-2024 End: 09-03-2024 Evaluation and management of inpatient Dr. Kenya Garcia MD -Medical Surgical 3 Work Phone: Start: 09-02-2024 End: 09-02-2024 ambulatory JULIO ARRIAGA Facility:[facility] Start: 09-02-2024 End: 09-02-2024 Patient encounter procedure Kimmy Dixon APRN.REGULATORY LEADER Work Phone: [facility] Comment on above: Rectal pain (Primary Dx) Start: 08-27-2024 End: 08-27-2024 Patient encounter procedure Andrez Pitts DO -[facility] Work Phone: Start: 08-27-2024 End: 08-27-2024 ambulatory Andrez Pitts Facility:[facility] Start: 08-20-2024 End: 08-20-2024 ambulatory JOSH BENNETT Facility:[facility] Start: 08-20-2024 End: 08-20-2024 Subsequent hospital visit by physician Bone Density [facility] Work Phone: Radiology Comment on above: Osteoporosis, unspec ified osteoporosis type, unspecified pathological fracture presence [M81.0] Start: 08-17-2024 End: 08-17-2024 Telephone encounter Josh Bennett DO Work Phone: Hematology/Oncology Comment on above: Appointment Start: 07-02-2024 End: 07-02-2024 ambulatory Treatment Rm 15 Andrew [facility] Work Phone: Hematology/Oncology Comment on above: Iron deficiency anem ia due to chronic blood loss (Primary Dx); Iron malabsorption Start: 06-29-2024 End: 06-29-2024 ambulatory JULIO ARRIAGA [facility] Start: 06-24-2024 End: 06-24-2024 ambulatory Treatment Rm 15 Andrew [facility] Work Phone: Hematology/Oncology Comment on above: Iron deficiency anem ia due to chronic blood loss (Primary Dx); Iron malabsorption Start: 06-18-2024 End: 06-18-2024 ambulatory Treatment Rm 17 Andrew [facility] Work Phone: Hematology/Oncology Comment on above: Rheumatoid arthritis involving multiple sites with positive rheumatoid factor (HCC) (Primary Dx); Iron 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 blood loss; Iron malabsorption Start: 06-16-2024 End: 06-16-2024 Telephone encounter Jennifer Arias MD Work Phone: [facility] Rheumatology and Arthritis Comment on above: Patient Question Start: 06-15-2024 End: 06-15-2024 ambulatory Josh Bennett DO Work Phone: Hematology/Oncology Comment on above: Iron deficiency anem ia, unspecified iron deficiency anemia type (Primary Dx) Start: 06-15-2024 End: 06-15-2024 Patient encounter procedure Josh Bennett DO Work Phone: Hematology/Oncology Start: 06-14-2024 End: 06-15-2024 Refill Jennifer Arias MD Work Phone: [facility] Rheumatology and Arthritis Comment on above: Refill Request Start: 06-09-2024 End: 06-09-2024 ambulatory Julio Arriaga NP Facility:[facility] Start: 06-06-2024 End: 06-06-2024 Emergency department patient visit Gaudencio Ambriz Facility:[facility] Start: 06-03-2024 End: 06-03-2024 Telephone encounter Julio Arriaga APRN.CNP Work Phone: [facility] Comment on above: Appointment Start: 05-29-2024 End: 05-29-2024 Telephone encounter Sarah Pearson PA-C Work Phone: [facility] Arthritis & Rheumatology Comment on above: Results Start: 05-21-2024 End: 05-21-2024 ambulatory Chair 1 [facility] Hemat[facility]/Oncology Comment on above: Rheumatoid arthritis involving multiple sites with positive rheumatoid factor (HCC) (Primary Dx) Start: 05-15-2024 End: 05-15-2024 Telemedicine consultation with patient Sarah Jamison Michel SAMUEL Work Phone: [facility] Start: 05-15-2024 End: 05-15-2024 ambulatory Sarah Jamison Michel SAMUEL Work Phone: [facility] Comment on above: Rheumatoid arthritis involving multiple sites with positive rheumatoid factor (HCC) (Primary Dx); Osteoporosis, unspecified osteoporosis type, unspecified pathological fracture presence; High risk medication use; Vitamin D deficiency; Rash and nonspecific skin eruption Start: 04-27-2024 End: 04-27-2024 ambulatory Andrez Pitts Facility:[facility] Start: 04-01-2024 End: 04-01-2024 Patient encounter procedure [facility] Comment on above: Rheumatoid arthritis involving multiple sites with positive rheumatoid factor (HCC) (Primary Dx) Start: 04-01-2024 End: 04-01-2024 ambulatory Chair 1 [facility] Start: 03-25-2024 End: 03-25-2024 ambulatory Andrez Pitts Facility:[facility] Start: 02-26-2024 End: 02-26-2024 Patient encounter procedure [facility] Comment on above: Rheumatoid arthritis involving multiple sites with positive rheumatoid factor (HCC) (Primary Dx) Start: 02-26-2024 End: 02-26-2024 ambulatory Chair 2 [facility] Start: 01-29-2024 End: 01-29-2024 Patient encounter procedure [facility] Comment on above: Rheumatoid arthritis involving multiple sites with positive rheumatoid factor (HCC) (Primary Dx) Start: 01-29-2024 End: 01-29-2024 ambulatory Chair 3 [facility] Start: 12-31-2023 Telephone encounter Jennifer miranda MD Work Phone: [facility] Rheumatology and Arthritis Comment on above: Patient Question Start: 12-31-2023 End: 12-31-2023 ambulatory Chair 1 [facility] Start: 12-31-2023 End: 12-31-2023 Patient encounter procedure [facility] Comment on above: Rheumatoid arthritis involving multiple sites with positive rheumatoid factor (HCC) (Primary Dx) Start: 12-30-2023 End: 03-05-2024 ambulatory CLARICE REGULATORY LEADER [facility] Start: 12-02-2023 ambulatory JULIO REGULATORY LEADER [facility] Start: 11-21-2023 End: 11-21-2023 Patient encounter procedure Jennifer Arias MD Work Phone: [facility] Rheumatology and Arthritis Comment on above: Rheumatoid arthritis involving multiple sites with positive rheumatoid factor (HCC) (Primary Dx); High risk medication use; Localized osteoporosis without current pathological fracture; Vitamin D deficiency Start: 11-20-2023 End: 11-20-2023 ambulatory Chair 1 [facility] Start: 11-20-2023 End: 11-20-2023 Patient encounter procedure [facility] Comment on above: Rheumatoid arthritis involving multiple sites with positive rheumatoid factor (HCC) (Primary Dx); Rheumatoid arthritis involving multiple sites, unspecified whether rheumatoid factor present (HCC); Osteoporosis, unspecified; Vitamin D deficiency Start: 11-12-2023 Orders Only Sarah huynh PA-C Work Phone: [facility] Rheumatology and Arthritis Start: 11-11-2023 Orders Only Tracy Velez PA-C Work Phone: [facility] Start: 11-06-[address] [facility] Start: 10-19-2023 End: 10-19-2023 Emergency department patient visit AUTOMOTIVE SALES MANAGER-Marga Arriaga NP Work Phone: [facility]-Emergency Department Work Phone: Start: 10-18-2023 Refill Sarah huynh PA-C Work Phone: [facility] Rheumatology and Arthritis Comment on above: Refill Request Start: 10-16-2023 End: 10-16-2023 ambulatory FREDI NEWMAN [facility] Start: 10-15-2023 Orders Only Jennifer mcduffie MD Work Phone: [facility]ology [facility] Start: 09-26-2023 End: 09-26-2023 ambulatory Chair 5 [facility] Comment on above: Rheumatoid arthritis involving multiple sites with positive rheumatoid factor (HCC) (Primary Dx); Rheumatoid arthritis involving multiple sites, unspecified whether rheumatoid factor present (HCC) Start: 09-26-2023 End: 09-26-2023 ambulatory JULIO MOLINA [facility] Start: 09-19-2023 End: 09-19-2023 Orders Only Jennifer Arias MD Work Phone: [facility] Rheumatology and Arthritis Start: 09-18-2023 End: 09-18-2023 Patient encounter procedure AUTOMOTIVE SALES MANAGER-Marga Arriaga AUTOMOTIVE SALES MANAGER Work Phone: [facility]opaedic Spec[facility] Work Phone: Start: 09-16-2023 Telephone encounter Jennifer miranda MD Work Phone: [facility] Comment on above: Medication Preauthor ization ([facility] Pending [id number] [facility]/Portal) Start: 09-06-2023 End: 09-06-2023 ambulatory AUTOMOTIVE SALES MANAGERRowan Arriaga NP Work Phone: [facility] Work Phone: Start: 09-06-2023 End: 09-06-2023 Patient encounter procedure AUTOMOTIVE SALES MANAGER-Marga Arriaga AUTOMOTIVE SALES MANAGER Work Phone: [facility]-Laboratory, Specimen Work Phone: Start: 08-30-2023 End: 08-30-2023 ambulatory Chair 4 [facility] Hematology/Oncology Comment on above: Rheumatoid arthritis involving multiple sites with positive rheumatoid factor (HCC) (Primary Dx); Rheumatoid arthritis involving multiple sites, unspecified whether rheumatoid factor present (HCC) Start: 07-25-2023 End: 07-25-2023 ambulatory AUTOMOTIVE SALES MANAGER-C Julio Arriaga AUTOMOTIVE SALES MANAGER Work Phone: [facility] Work Phone: Start: 07-25-2023 End: 07-25-2023 Patient encounter procedure AUTOMOTIVE SALES MANAGER-Marga Arriaga AUTOMOTIVE SALES MANAGER Work Phone: [facility]-MRI - H Work Phone: Start: 07-12-2023 End: 07-12-2023 Patient encounter procedure AUTOMOTIVE SALES MANAGER-Marga Arriaga AUTOMOTIVE SALES MANAGER Work Phone: [facility] Gastroenterology Work Phone: Start: 07-05-2023 End: 07-05-2023 ambulatory AUTOMOTIVE SALES MANAGER-Magra Arriaga AUTOMOTIVE SALES MANAGER Work Phone: [facility] Work Phone: Start: 07-05-2023 End: 07-05-2023 Patient encounter procedure AUTOMOTIVE SALES MANAGER-Marga Arriaga AUTOMOTIVE SALES MANAGER Work Phone: [facility] Gastroenterology Work Phone: Start: 07-03-2023 End: 07-03-2023 ambulatory Chair 7 [facility] Work Phone: Hematology/Oncology Comment on above: Rheumatoid arthritis involving multiple sites with positive rheumatoid factor (HCC) (Primary Dx); Rheumatoid arthritis involving multiple sites, unspecified whether rheumatoid factor present (HCC) Start: 06-19-2023 Orders Only Jennifer mcduffie MD Work Phone: [facility] Rheumatology and Arthritis Start: 05-27-2023 End: 05-27-2023 ambulatory Chair 9 [facility] Work Phone: Hematology/Oncology Comment on above: Rheumatoid arthritis involving multiple sites with positive rheumatoid factor (HCC) (Primary Dx); Rheumatoid arthritis involving multiple sites, unspecified whether rheumatoid factor present (HCC) Start: 05-21-2023 End: 05-21-2023 Patient encounter procedure Sarah Pearson PA-C Work Phone: [facility] Rheumatology and Arthritis Comment on above: Rheumatoid arthritis involving multiple sites with positive rheumatoid factor (HCC) (Primary Dx); High risk medication use; Localized osteoporosis without current pathological fracture; Vitamin D deficiency Start: 04-29-2023 Telephone encounter Sarah cotto PA-C Work Phone: [facility] Comment on above: Results Start: 04-25-2023 End: 04-25-2023 ambulatory Bed 1 [facility] Work Phone: Hematology/Oncology Comment on above: Osteoporosis, unspec ified (Primary Dx) Start: 04-25-2023 End: 04-25-2023 ambulatory Bed 1 [facility] Work Phone: Hematology/Oncology Comment on above: Rheumatoid arthritis involving multiple sites, unspecified whether rheumatoid factor present (HCC) (Primary Dx); Rheumatoid arthritis involving multiple sites with positive rheumatoid factor (HCC); Vitamin D deficiency; Localized osteoporosis without current pathological fracture Start: 04-17-2023 End: 04-17-2023 Patient encounter procedure AUTOMOTIVE SALES MANAGER-C Julio Arriaga NP Work Phone: [facility] Work Phone: Start: 04-13-2023 Refill Jennifer mcduffie MD Work Phone: [facility] Rheumatology and Arthritis Comment on above: Refill Request Start: 04-11-2023 Telephone encounter Jennifer miranda MD Work Phone: [facility] Rheumatology and Arthritis Start: 02-01-2023 Orders Only Jennifer mcduffie MD Work Phone: [facility] [place] [facility] Rhe[facility]ology and Arthritis Start: 01-24-2023 Non-patient / Non-visit MD GIANNI NAM [facility] Start: 01-23-2023 Non-patient / Non-visit MD GIANNI NAM [facility] Start: 01-23-2023 End: 01-24-2023 Evaluation and management of inpatient MD GIANNI CERVANTES [facility]-Medical Surgical 3 Work Phone: Start: 01-09-2023 End: 01-09-[address] Selene Pierre Work Phone: [facility] Start: 01-07-2023 End: 01-07-[address] Selene Pierre Work Phone: [facility] Work Phone: Start: 01-07-2023 End: 01-07-[address] Selene Pierre Work Phone: [facility] Start: 01-02-2023 Telephone encounter Jennifer miranda MD Work Phone: [facility] Rhe[facility] Comment on above: PRECERT NOT REQUIRED (Zoledronic Acid 5mg PRECERT NOT REQUIRED [id number] 01.02.23 - 01.03.24 for 1 visit [facility] Dual/Portal) Start: 12-26-2022 Telephone encounter Jennifer miranda MD Work Phone: [facility] [place] [facility] Rheumatology and Arthritis Comment on above: Patient Question Start: 12-24-2022 Refill Sarah huynh PA-C Work Phone: [facility] Comment on above: Refill Request Start: 12-22-2022 Refill Jennifer mcduffie MD Work Phone: [facility] Rheumatology and Arthritis Comment on above: Refill Request Start: 12-17-2022 End: 12-17-[address] Selene Pierre Work Phone: [facility] Start: 12-06-2022 End: 12-06-[address] Selene Pierre Work Phone: [facility] Start: 12-05-2022 End: 12-05-[address] Selene Pierre Work Phone: [facility] Work Phone: Start: 12-05-2022 End: 12-05-[address] Selene Pierre Work Phone: [facility]-Laboratory, Specimen Start: 11-29-2022 End: 11-29-[address] Selene Pierre Work Phone: [facility] Work Phone: Start: 11-29-2022 End: 11-29-[address] Selene Pierre Work Phone: [facility] Start: 11-26-2022 Orders Only Jennifer mcduffie MD Work Phone: [facility] Rheumatology and Arthritis Start: 11-21-2022 End: 11-21-[address] Selene Pierre Work Phone: [facility] Gastroenterology Start: 11-19-2022 Refill Carol Mathews APRN, .CNP Work Phone: Internal Medicine [place] Comment on above: Refill Request Start: 11-14-2022 End: 11-14-[address] Selene Pierre Work Phone: [facility] Start: 11-06-2022 Non-patient / Non-visit Dr. Sunil Pierre Work Phone: [facility] Start: 11-06-2022 End: 11-06-2022 Admission to same day surgery center Dr. Selene Pierre Work Phone: [facility]-Endoscopy Start: 11-06-2022 End: 11-06-[address] Selene Pierre Work Phone: [facility] Work Phone: Start: 11-02-2022 End: 11-02-2022 ambulatory Chair 1 [facility] Hematology/Oncology Comment on above: Rheumatoid arthritis involving multiple sites, unspecified whether rheumatoid factor present (HCC) (Primary Dx); Vitamin D deficiency; Other osteoporosis with current pathological fracture with malunion, subsequent encounter; Rheumatoid arthritis involving multiple sites with positive rheumatoid factor (HCC) Start: 10-31-2022 Refill Selene Roberson Work Phone: [facility] Comment on above: Refill Request Start: 10-24-2022 Telephone encounter Jennifer miranda MD Work Phone: [facility] Comment on above: APPROVED (Ori JONES PROVED [id number] 09.06.22 - 09.06.23 [facility] Medicare Portal) Start: 10-18-2022 End: 10-18-2022 Patient encounter procedure Jennifer Arias MD Work Phone: [facility] Rheumatology and Arthritis Comment on above: Pain in joint, multi ple sites (Primary Dx); Osteoporosis, unspecified osteoporosis type, unspecified pathological fracture presence Start: 10-17-2022 Non-patient / Non-visit Dr. Sunil Pierre Work Phone: [facility] Start: 10-17-2022 End: 10-17-[address] Selene Pierre Work Phone: [facility] Work Phone: Start: 10-17-2022 End: 10-17-[address] Selene Pierre Work Phone: [facility]-Pulmonary Services/Neurology Start: 10-15-2022 End: 10-15-[address] Selene Pierre Work Phone: [facility] Work Phone: Start: 10-15-2022 End: 10-15-[address] Selene Pierre Work Phone: [facility], [facility] Start: 09-20-2022 Refill Sarah huynh PA-C Work Phone: [facility] Rheumatology and Arthritis Comment on above: Refill Request Start: 09-19-2022 End: 09-19-[address] Selene Pierre Work Phone: [facility] Work Phone: Start: 09-19-2022 End: 09-19-[address] Selene Pierre Work Phone: [facility] Gastroenterology Start: 09-12-2022 End: 09-12-[address] Selene Pierre Work Phone: [facility] Start: 09-06-2022 End: 09-06-[address] Selene Pierre Work Phone: [facility] Work Phone: Start: 09-06-2022 End: 09-06-[address] Selene Pierre Work Phone: [facility]-Pulmonary Services/Neurology Start: 09-05-2022 Telephone encounter Selene brooke MD Work Phone: [facility] [place] Comment on above: Medical Attestation forms Start: 09-03-2022 Orders Only Jennifer mcduffie MD Work Phone: [facility] Rheumatology and Arthritis Start: 08-15-2022 End: 08-15-[address] Selene Pierre Work Phone: [facility] Start: 08-14-2022 End: 08-14-2022 ambulatory Chair 1 [facility] Hematology/Oncology Comment on above: Other osteoporosis w ith current pathological fracture with malunion, subsequent encounter (Primary Dx); Rheumatoid arthritis involving multiple sites with positive rheumatoid factor (HCC); Rheumatoid arthritis involving multiple sites, unspecified whether rheumatoid factor present (HCC) Refill Request Start: 08-09-2022 Orders Only Jennifer mcduffie MD Work Phone: [facility] Start: 08-08-2022 Orders Only Jennifer mcduffie MD Work Phone: [facility] Start: 08-02-2022 End: 08-02-2022 Patient encounter procedure Leilani Colmenares APRN.REGULATORY LEADER Work Phone: [facility] Comment on above: Chronic bilateral lo w back pain without sciatica (Primary Dx); Lumbar spondylosis; Myofascial pain; Fibromyalgia; Sacroiliitis (HCC) Start: 07-17-2022 End: 07-17-2022 ambulatory Chair 8 [facility] Work Phone: Hematology/Oncology Comment on above: Other osteoporosis w ith current pathological fracture with malunion, subsequent encounter (Primary Dx); Rheumatoid arthritis involving multiple sites with positive rheumatoid factor (HCC); Rheumatoid arthritis involving multiple sites, unspecified whether rheumatoid factor present (HCC) Start: 07-13-2022 Orders Only Jennifer mcduffie MD Work Phone: [facility] Rheumatology and Arthritis Start: 07-13-2022 End: 07-13-[address] Selene Pierre Work Phone: [facility] Start: 07-10-2022 End: 07-10-2022 Subsequent hospital visit by physician Bone Density [facility] Work Phone: Radiology Comment on above: Localized osteoporos is without current pathological fracture [M81.6] Start: 06-26-2022 End: 06-26-2022 Subsequent hospital visit by physician Xr [facility] 2 [facility] Comment on above: Pain in left hip [M2 5.552] Start: 06-26-2022 End: 06-26-2022 Patient encounter procedure Sarah Pearson PA-C Work Phone: [facility] Rheumatology and Arthritis Comment on above: Localized osteoporos is without current pathological fracture (Primary Dx); Pain in left hip; Fall, initial encounter; Rash and nonspecific skin eruption; Rheumatoid arthritis involving multiple sites with positive rheumatoid factor (HCC); High risk medication use; Vitamin D deficiency Start: 06-15-2022 Refill Sarah huynh PA-C Work Phone: [facility] Rheumatology and Arthritis Comment on above: Refill Request Start: 06-11-2022 Refill Jacek Mitchell MD Work Phone: [facility] Comment on above: Refill Request Start: 05-30-2022 Orders Only Jennifer mcduffie MD Work Phone: [facility] Rheumatology and Arthritis Start: 05-29-2022 Orders Only Jennifer mcduffie MD Work Phone: [facility] Rheumatology and Arthritis Start: 05-17-2022 Telephone encounter Geronimo hedrick BOAT HOP.REGULATORY LEADER Work Phone: [place] [facility] Comment on above: Results Start: 05-17-2022 End: 05-17-2022 ambulatory Carol Mathews BOAT HOP.REGULATORY LEADER Work Phone: [facility] [place] Comment on above: COVID (Primary Dx) Start: 05-17-2022 End: 05-17-2022 Telemedicine consultation with patient Carol Reid NUNEZREGULATORY LEADER Work Phone: [facility] Start: 05-16-2022 End: 05-16-2022 Patient encounter procedure Sarah De Luna BOAT HOP.REGULATORY LEADER Work Phone: [facility] Comment on above: Exposure to 2018 el coronavirus (Primary Dx) Start: 05-03-2022 End: 05-03-2022 ambulatory Bed 1 [facility] [place] Work Phone: Hematology/Oncology Comment on above: Other osteoporosis w ith current pathological fracture with malunion, subsequent encounter (Primary Dx); Rheumatoid arthritis involving multiple sites with positive rheumatoid factor (HCC); Rheumatoid arthritis involving multiple sites, unspecified whether rheumatoid factor present (HCC) Start: 05-01-2022 Orders Only Jennifer mcduffie MD Work Phone: [facility] Rheumatology and Arthritis Start: 04-18-2022 Refill Sarah huynh PA-C Work Phone: [facility] Rheumatology and Arthritis Comment on above: Refill Request Start: 04-13-2022 Refill Sarah huynh PA-C Work Phone: [facility] Rheumatology and Arthritis Comment on above: Refill Request Start: 04-05-2022 End: 04-05-2022 ambulatory Bed 1 [facility] [place] Work Phone: Hematology/Oncology Comment on above: Other osteoporosis w ith current pathological fracture with malunion, subsequent encounter (Primary Dx); Rheumatoid arthritis involving multiple sites with positive rheumatoid factor ([facility]); Rheumatoid arthritis involving multiple sites, unspecified whether rheumatoid factor present ([facility]) Start: 03-29-2022 End: 03-29-2022 Patient encounter procedure BELLA GILLESPIE MD [facility] Start: 03-27-2022 Telephone encounter Leilani harris BOAT HOP.REGULATORY LEADER Work Phone: [facility] [place] Comment on above: Future Appointment Start: 03-22-2022 Telephone encounter Leilani harris APRN.REGULATORY LEADER Work Phone: [facility] Comment on above: Appointment Start: 03-19-2022 End: 03-19-2022 Patient encounter procedure BELLA GILLESPIE MD [facility] Start: 03-12-2022 Refill Jennifer mcduffie MD Work Phone: [facility] Rheumatology and Arthritis Comment on above: Refill Request Start: 03-05-2022 End: 03-05-2022 ambulatory Chair 4 [facility] [place] Hematology/Oncology Comment on above: Other osteoporosis w ith current pathological fracture with malunion, subsequent encounter (Primary Dx); Rheumatoid arthritis involving multiple sites with positive rheumatoid factor (HCC); Rheumatoid arthritis involving multiple sites, unspecified whether rheumatoid factor present (HCC) Start: 02-01-2022 Telephone encounter Jacek Mitchell MD Work Phone: [facility] Comment on above: Injections (Cable) Future Appointment ( Cable) Lumbar spondylosis ( Primary Dx) Start: 02-01-2022 End: 02-01-2022 Patient encounter procedure Leilani Colmenares BOAT HOP.REGULATORY LEADER Work Phone: [facility] Comment on above: Lumbar spondylosis ( Primary Dx); Chronic bilateral low back pain without sciatica; Myofascial pain; Fibromyalgia Start: 01-30-2022 End: 01-30-2022 ambulatory Sarah Pearson PA-C Work Phone: [facility] Rheumatology and Arthritis Comment on above: Vitamin D deficiency ; Rheumatoid arthritis involving multiple sites with positive rheumatoid factor (HCC) Start: 01-30-2022 End: 01-30-2022 Telemedicine consultation with patient Sarah Pearson PA-C Work Phone: [facility] Start: 01-24-2022 ambulatory Selene Roberson Work Phone: Internal Medicine [facility] [place] Start: 01-23-2022 Orders Only Jennifer mcduffie MD Work Phone: [facility] Rheumatology and Arthritis Start: 01-18-2022 Refill Sarah huynh PA-C Work Phone: [facility] Rheumatology and Arthritis Comment on above: Refill Request Start: 01-18-2022 Refill Carol Mathews BOAT HOP .REGULATORY LEADER Work Phone: [facility] Medicine [place] Comment on above: Refill Request Start: 01-08-2022 Refill Carol Mathews BOAT HOP .REGULATORY LEADER Work Phone: [facility] Medicine [place] Comment on above: Refill Request Start: 01-04-2022 Telephone encounter Jennifer miranda MD Work Phone: [facility] Comment on above: APPROVED (Reclast AP PROVED [id number] 01.25.2022 - 01.25.2023 per [facility] medicare Portal) Start: 12-28-2021 End: 12-28-2021 ambulatory Chair 8 [facility] Work Phone: Hematology/Oncology Comment on above: Other osteoporosis w ith current pathological fracture with malunion, subsequent encounter (Primary Dx); Rheumatoid arthritis involving multiple sites with positive rheumatoid factor (HCC); Rheumatoid arthritis involving multiple sites, unspecified whether rheumatoid factor present (HCC) Start: 12-22-2021 Orders Only Sarah huynh PA-C Work Phone: [facility] Start: 11-30-2021 End: 11-30-2021 ambulatory Chair 1 [facility] Hematology/Oncology Comment on above: Other osteoporosis w ith current pathological fracture with malunion, subsequent encounter (Primary Dx); Rheumatoid arthritis involving multiple sites with positive rheumatoid factor (HCC); Rheumatoid arthritis involving multiple sites, unspecified whether rheumatoid factor present (HCC) Start: 11-27-2021 Orders Only Jennifer mcduffie MD Work Phone: [facility] Rheumatology and Ar[facility]ritis Start: 11-19-2021 Refill Carol Mathews APRN, .CNP Work Phone: [facility] Medicine [place] Comment on above: Refill Request Start: 11-02-2021 End: 11-02-2021 ambulatory Chair 5 [facility] Work Phone: Hematology/Oncology Comment on above: Rheumatoid arthritis involving multiple sites with positive rheumatoid factor (HCC) (Primary Dx); Other osteoporosis with current pathological fracture with malunion, subsequent encounter; Rheumatoid arthritis involving multiple sites, unspecified whether rheumatoid factor present (HCC) Start: 11-01-2021 Telephone encounter Jennifer miranda MD Work Phone: 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, U09.9] Start: 04-19-2021 ambulatory Selene Roberson Work Phone: Internal Medicine [place] Comment on above: Vomiting Start: 02-08-2021 End: 02-08-2021 Subsequent hospital visit by physician Xr [facility] [place] [facility] Comment on above: Right knee pain, uns pecified chronicity [M25.561] Procedures Date Procedure Procedure Detail Performing Clinician Start: 03-19-2025 Blood count complete auto&auto difrntl wbc Josh A Masci DO Work Phone: Start: 03-02-2025 Flexible fiberoptic sigmoidoscopy Woo Thapa MD Work Phone: Start: 02-01-2025 Blood count complete auto&auto difrntl wbc Josh A Masci DO Work Phone: Start: 01-14-2025 Blood count complete auto&auto difrntl wbc Michelle Baker APRN Work Phone: Start: 12-27-2024 CT of pelvis without contrast Julio Arriaga AUTOMOTIVE SALES MANAGER-C Work Phone: Start: 11-30-2024 Blood count complete auto&auto difrntl wbc Josh A Masci DO Work Phone: Start: 11-16-2024 Blood count complete auto&auto difrntl wbc Josh A Masci DO Work Phone: Start: 11-09-2024 Blood count complete auto&auto difrntl wbc Josh A Masci DO Work Phone: Start: 10-30-2024 Plain x-ray of pelvi s and lower extremity Julio Arriaga AUTOMOTIVE SALES MANAGER-C Work Phone: Start: 10-30-2024 CT of head without contrast Julio Arriaga AUTOMOTIVE SALES MANAGER-C Work Phone: Start: 10-24-2024 Urnls dip stick/tabl et reagent auto microscopy Julio Arriaga AUTOMOTIVE SALES MANAGER-C Work Phone: Start: 10-24-2024 Estimated creatinine clearance Julio Arriaga AUTOMOTIVE SALES MANAGER-C Work Phone: Start: 10-24-2024 Computed tomography of abdomen and pelvis with intravenous contrast Julio Arriaga AUTOMOTIVE SALES MANAGER-C Work Phone: Start: 10-24-2024 CT angiography of ch est with contrast Julio Arriaga AUTOMOTIVE SALES MANAGER-C Work Phone: Start: 10-24-2024 SARS-CoV-2, Influenz a & RSV (PCR) Julio Arriaga AUTOMOTIVE SALES MANAGER-C Work Phone: Start: 10-12-2024 Blood count complete auto&auto difrntl wbc Josh Bennett DO Work Phone: Start: 10-05-2024 Blood count complete auto&auto difrntl wbc Josh Bennett DO Work Phone: Start: 09-24-2024 CT of pelvis with contrast Julio Arriaga AUTOMOTIVE SALES MANAGER-C Work Phone: Start: 09-24-2024 Estimated creatinine clearance Julio Arriaga AUTOMOTIVE SALES MANAGER-C Work Phone: Start: 09-24-2024 Urnls dip stick/tabl et rgnt auto w/o microscopy Kimmy Dixon APRN.REGULATORY LEADER Work Phone: Start: 09-24-2024 Blood culture Julio Arriaga AUTOMOTIVE SALES MANAGER-C Work Phone: Start: 09-23-2024 Mri pelvis w/o & w/c ontrast material Josh Bennett DO Work Phone: Start: 09-23-2024 Ct thorax w/contrast material Josh Bennett DO Work Phone: Start: 09-03-2024 Estimated creatinine clearance Julio Arriaga AUTOMOTIVE SALES MANAGER-C Work Phone: Start: 09-03-2024 Measurement of renal function Julio Arriaga AUTOMOTIVE SALES MANAGER-C Work Phone: Comment on above: GFR Calc Start: 09-02-2024 SARS-CoV-2, Influenz a & RSV (PCR) Julio Arriaga AUTOMOTIVE SALES MANAGER-C Work Phone: Start: 09-02-2024 Urnls dip stick/tabl et reagent auto microscopy Julio Arriaga AUTOMOTIVE SALES MANAGER-C Work Phone: Start: 09-02-2024 Computed tomography of abdomen and pelvis with intravenous contrast Julio Arriaga AUTOMOTIVE SALES MANAGER-C Work Phone: Start: 09-02-2024 X-ray of chest, PA a nd lateral views Julio Arriaga AUTOMOTIVE SALES MANAGER-C Work Phone: Start: 05-21-2024 Blood count complete auto&auto difrntl wbc Tracy [place] PA-C Work Phone: Start: 01-29-2024 Blood count complete auto&auto difrntl wbc Tracy [place] PA-C Work Phone: Start: 11-20-2023 Blood count complete auto&auto difrntl wbc Tracy [place] PA-C Work Phone: Start: 11-20-2023 C-reactive protein Daniele Arias MD Work Phone: Start: 10-19-2023 X-ray of unilateral ribs, two views without x-ray of chest AUTOMOTIVE SALES MANAGER-C Julio Arriaga AUTOMOTIVE SALES MANAGER Work Phone: Start: 10-19-2023 CT of head without contrast AUTOMOTIVE SALES MANAGER-C Julio Arriaga AUTOMOTIVE SALES MANAGER Work Phone: Start: 09-18-2023 Radiologic examinati on of knee AUTOMOTIVE SALES MANAGER-C Julio Arriaga AUTOMOTIVE SALES MANAGER Work Phone: Start: 09-06-2023 Ova OR parasites identification AUTOMOTIVE SALES MANAGER-C Julio Arriaga AUTOMOTIVE SALES MANAGER Work Phone: Start: 07-25-2023 MRI of small intestine AUTOMOTIVE SALES MANAGER-C Julio Arriaga AUTOMOTIVE SALES MANAGER Work Phone: Start: 04-25-2023 CREATININE BLD Jennifer Arias MD Work Phone: Start: 04-25-2023 Blood count complete automated Jennifer Arias MD Work Phone: Start: 04-25-2023 Hepatitis c antibody Am benito Jamison Michel PA-C Work Phone: Start: 04-25-2023 Iaad ia hepatitis b surface antigen Sarah Jamison Michel PA-C Work Phone: Start: 01-23-2023 Radiologic examinati [...] Treatment Date Care Activity Detail Author Start: 02-19-2035 Urine microalbumin profile DTaP,Tdap,Td Vaccine (3 - Td or Tdap) [facility] Start: 02-02-2028 Diabetes Screening Diabetes Screening [facility] Start: 01-15-2028 Diabetes Screening Diabetes Screening [facility] Start: 12-01-2027 Diabetes Screening Diabetes Screening [facility] Start: 11-24-2027 Diabetes Screening Diabetes Screening [facility] Start: 11-17-2027 Diabetes Screening Diabetes Screening [facility] Start: 11-10-2027 Diabetes Screening Diabetes Screening [facility] Start: 10-31-2027 Diabetes Screening Diabetes Screening [facility] Start: 10-20-2027 Diabetes Screening Diabetes Screening [facility] Start: 10-06-2027 Diabetes Screening Diabetes Screening [facility] Start: 09-23-2027 Colonoscopy COLONOSCOPY [facility] Start: 09-23-2027 COLORECTAL CANCER SCREENING COLORECTAL CANCER SCREENING [facility] Start: 09-23-2027 Screening for malignant neoplasm of colon [facility] Start: 09-16-2027 Diabetes Screening Diabetes Screening [facility] Start: 05-21-2027 Diabetes Screening Diabetes Screening [facility] Start: 01-28-2027 Diabetes Screening Diabetes Screening [facility] Start: 11-19-2026 Diabetes Screening Diabetes Screening [facility] Start: 08-20-2026 Screening for osteoporosis Bone Density Screening [facility] Start: 07-31-2026 Diabetes Screening Diabetes Screening [facility] Start: 04-25-2026 Diabetes Screening Diabetes Screening [facility] Start: 11-30-2025 BP Controlled (<130/80) BP Controlled (<130/80) [facility] Start: 10-30-2025 BP Controlled (<130/80) BP Controlled (<130/80) [facility] Start: 10-18-2025 DIABETES SCREEN DIABETES SCREEN [facility] Start: 10-18-2025 Diabetes Screening Diabetes Screening [facility] Start: 10-13-2025 BP Controlled (<130/80) BP Controlled (<130/80) [facility] Start: 10-04-2025 End: 10-04-2025 Patient encounter procedure 10/04/2025 8:00 AM EDT Office Visit OB/Gynecology [address] [place] [address] Juan José Cheema MD [address] [place] [address] Annual OB/Gynecology Comment on above: Annual Start: 09-30-2025 BP Controlled (<130/80) BP Controlled (<130/80) [facility] Start: 09-30-2025 Screening for malignant neoplasm of breast Mammogram Screening [facility] Start: 09-30-2025 Screening for malignant neoplasm of cervix Cervical Cancer Screening [facility] Start: 09-27-2025 End: 09-27-2025 ambulatory 09/27/2025 10:50 AM EST Visit (SP) Office Hematology/Oncology [address] [place] [address] Josh Bennett, [address] [place] [address] 6MO OV/LABS AND CT 09/20* Hematology/Oncology Comment on above: 6MO OV/LABS AND CT 09/20* Start: 09-23-2025 Screening for malignant neoplasm of lung Lung Cancer Screening [facility] Start: 09-20-2025 End: 09-20-2025 Patient encounter procedure Cat Scan Comment on above: Malignant neoplasm of anus (HCC) [C21.0] Start: 09-20-2025 End: 09-20-2025 ambulatory 09/20/2025 10:00 AM [facility] Infusion Center Hematology/Oncology [address] [place] [address] Wstr, Lab/[place] [facility] [address] [place] [address] CBC/CMP(PORT)LEAVE OPEN FOR ACCESS FOR IMAGING Hematology/Oncology Comment on above: CBC/CMP(PORT)LEAVE OPEN FOR ACCESS FOR I MAGING Start: 09-02-2025 BP Controlled (<130/80) BP Controlled (<130/80) [facility] Start: 07-17-2025 DIABETES SCREEN DIABETES SCREEN [facility] Start: 06-15-2025 BP Controlled (<130/80) BP Controlled (<130/80) [facility] Start: 05-13-2025 End: 05-13-2025 ambulatory 05/13/2025 11:00 AM [facility] Infusion Center Hematology/Oncology [address] [place] [address] 2ND Hematology/Oncology Comment on above: 2ND Start: 05-03-2025 End: 05-03-2025 Patient encounter procedure 05/03/2025 10:30 AM [facility] Infusion Center [facility] Infusion Center [address] [place] [address] /// relcast [facility] Infusion Center Comment on above: /// relcast Start: 04-15-2025 End: 04-15-2025 ambulatory 04/15/2025 11:00 AM EDT Infusion Center Hematology/Oncology [address] [place] [address] 2ND Hematology/Oncology Comment on above: 2ND Start: 03-29-2025 Influenza vaccination [facility] Start: 03-19-2025 End: 03-19-2025 ambulatory 03/19/2025 11:20 AM EDT Visit (SP) Office Hematology/Oncology [address] [place] [address] Josh Bennett DO [address] [place] [address] OV BX AT [facility]* Hematology/Oncology Comment on above: BX AT [facility]* Start: 03-18-2025 End: 03-18-2025 ambulatory 03/18/2025 10:30 AM EDT Infusion Center Hematology/Oncology [address] [place] [address] 2ND Hematology/Oncology Comment on above: 2ND Start: 03-05-2025 DIABETES SCREEN DIABETES SCREEN [facility] Start: 03-02-2025 Sigmoidoscopy flx w/biopsy single/multiple SIGMOIDOSCOPY AND BIOPSY [facility] Start: 03-02-2025 Patient discharge [facility] Start: 02-27-2025 [facility] Start: 02-18-2025 End: 02-18-2025 ambulatory Hematology/Oncology Comment on above: 2ND pt requested date/ti me Start: 02-04-2025 End: 02-04-2025 ambulatory 02/04/2025 10:00 AM EDT Infusion Center Hematology/Oncology [address] [place] [address] 2ND Hematology/Oncology Comment on above: 2ND Start: 02-01-2025 End: 02-01-2025 Patient encounter procedure 02/01/2025 11:00 AM EDT Appointment Radiology [address] [place] [id number] Malignant neoplasm of anus (HCC) [C21.0] Radiology Comment on above: Malignant neoplasm of anus (HCC) [C21.0] Start: 02-01-2025 End: 02-01-2025 ambulatory 02/01/2025 10:45 AM EDT Infusion Center Hematology/Oncology [address] [place] [address] Wstr, Lab/[place] [facility] [address] [place] [address] CBC/CMP(PORT)/ACCESS FOR MRI TODAY* Hematology/Oncology Comment on above: CBC/CMP(PORT)/ACCESS FOR MRI TODAY* Start: 01-14-2025 End: 04-15-2025 25-hydroxyvitamin D3 [Mass/volume] in Serum or Plasma [facility] Comment on above: Expected: 01/14/2025, Expires: Start: 01-14-2025 End: 04-15-2025 C reactive protein [Mass/volume] in Serum or Plasma [facility] Comment on above: Expected: 01/14/2025, Expires: Start: 01-14-2025 End: 04-15-2025 Cobalamin (Vitamin B12) [Mass/volume] in Serum or Plasma [facility] Comment on above: Expected: 01/14/2025, Expires: Start: 01-14-2025 End: 04-15-2025 Hepatitis B virus core Ab [Presence] in Serum [facility] Comment on above: Expected: 01/14/2025, Expires: Start: 01-14-2025 End: 04-15-2025 Hepatitis B virus surface Ab [Presence] in Serum [facility] Comment on above: Expected: 01/14/2025, Expires: Start: 01-14-2025 End: 04-15-2025 Hepatitis B virus surface Ag [Presence] in Serum [facility] Comment on above: Expected: 01/14/2025, Expires: Start: 01-07-2025 End: 01-07-2025 ambulatory 01/07/2025 10:30 AM EDT Infusion Center Hematology/Oncology [address] [place] [address] 2ND Hematology/Oncology Comment on above: 2ND Start: 12-27-2024 [facility] Start: 12-11-2024 End: 12-11-2024 ambulatory 12/11/2024 10:30 AM EDT Infusion Center Hematology/Oncology [address] [place] [address] 2ND Hematology/Oncology Comment on above: 2ND Start: 12-10-2024 End: 12-10-2024 ambulatory 12/10/2024 11:00 AM EDT [facility] Center Hematology/Oncology [address] [place] [address] RECLAST/Oder Per JENNIFER Garcia* Hematology/Oncology Comment on above: RECLAST/Oder Per JENNIFER Garcia* Start: 12-07-2024 End: 12-07-2024 Follow-up encounter 12/07/2024 11:30 AM EDT [facility] Radiation Oncology [address] [place] [address] Sidney Joya MD [address] [place] [address] 4WK FOLLOW UP Radiation Oncology Comment on above: 4WK FOLLOW UP Start: 11-30-2024 End: 11-30-2024 Patient encounter procedure 11/30/2024 12:00 PM EDT [facility] Rheumatology and Arthritis [address] [facility] [address] [place], [place] [id number] Jennifer Arias MD [address] [facility] [address] [place] [address] 2mth f/up [facility] [place] [facility] Rheumatology and Arthritis Comment on above: 2mth f/up Start: 11-30-2024 End: 11-30-2024 ambulatory Hematology/Oncology Comment on above: QWK CBC(PICC)DRESSING CHANGE* WK8 OV/(PICC)LAB EAR LY* QWK(SO)CBC(PICC)DRES SING CHANGE* 8WK OV(PICC)LAB ERROL Y* QWK(SO)CBC(PORT)OV T SHIRLEY* 8WK OV(PORT)LAB ERROL Y* Start: 11-27-2024 End: 11-27-2024 ambulatory 11/27/2024 10:00 AM EDT Infusion Center Hematology/Oncology [address] [place] [address] Wstr, Lab/[place] c [address] [place] [address] PICC DRESSING CHANGE* Hematology/Oncology Comment on above: PICC DRESSING CHANGE* Start: 11-23-2024 End: 11-23-2024 ambulatory Hematology/Oncology Comment on above: QWK CBC(PICC)DRESSING CHANGE* QWK(SO)CBC(PICC)DRES SING CHANGE* QWK(SO)CBC(PORT)* Start: 11-20-2024 End: 11-20-2024 ambulatory 11/20/2024 10:00 AM EDT Infusion Center Hematology/Oncology [address] [place] [address] Wstr, Lab/[place] [facility] [address] [place] [address] PICC DRESSING CHANGE* Hematology/Oncology Comment on above: PICC DRESSING CHANGE* Start: 11-16-2024 End: 11-16-2024 ambulatory Hematology/Oncology Comment on above: QWK CBC(PICC)DRESSING CHANGE* QWK(SO)CBC(PICC)DRES SING CHANGE* QWK(SO)CBC(PORT)* Start: 11-16-2024 End: 11-16-2024 Patient encounter procedure 11/16/2024 9:30 AM EDT Appointment Radiation Oncology [address] [place] [address] CON CHEMO Radiation Oncology Comment on above: CON CHEMO Start: 11-13-2024 End: 11-13-2024 ambulatory 11/13/2024 10:00 AM EDT Infusion Center Hematology/Oncology [address] [place] [address] Wstr, Lab/[place] [facility] [address] [place] [address] PICC DRESSING CHANGE* Hematology/Oncology Comment on above: PICC DRESSING CHANGE* Start: 11-13-2024 End: 11-13-2024 Patient encounter procedure 11/13/2024 9:30 AM EDT Appointment Radiation Oncology [address] [place] [address] CON CHEMO Radiation Oncology Comment on above: CON CHEMO Start: 11-12-2024 End: 11-12-2024 Patient encounter procedure 11/12/2024 9:30 AM EDT Appointment Radiation Oncology [address] [place] [address] CON CHEMO Radiation Oncology Comment on above: CON CHEMO Start: 11-11-2024 End: 11-11-2024 Patient encounter procedure 11/11/2024 9:30 AM EDT Appointment Radiation Oncology [address] [place] [address] CON CHEMO Radiation Oncology Comment on above: [...] Radiation Oncology [address] [place] [address] CON CHEMO Radiation Oncology Comment on above: CON CHEMO Start: 11-06-2024 End: 11-06-2024 ambulatory 11/06/2024 4:00 PM EDT Infusion Center Hematology/Oncology [address] [place] [address] Wstr, Lab/[place] [facility] [address] [place] [address] D5 DC CADD* Hematology/Oncology Comment on above: D5 DC CADD* Start: 11-06-2024 End: 11-06-2024 Patient encounter procedure 11/06/2024 9:30 AM EDT Appointment Radiation Oncology [address] [place] [address] CON CHEMO Radiation Oncology Comment on above: CON CHEMO Start: 11-05-2024 End: 11-05-2024 Patient encounter procedure OB/Gynecology Comment on above: Comment: General exam/PAP smear CON CHEMO Start: 11-04-2024 End: 11-04-2024 Patient encounter procedure 11/04/2024 9:30 AM EDT Appointment Radiation Oncology [address] [place] [address] CON CHEMO Radiation Oncology Comment on above: CON CHEMO Start: 11-03-2024 End: 11-03-2024 Patient encounter procedure Radiation Oncology Comment on above: CON CHEMO Location: W-ON TREAT MENT VISIT Start: 11-02-2024 DIABETES SCREEN DIABETES SCREEN [facility] Start: 11-02-2024 End: 11-02-2024 ambulatory Hematology/Oncology Comment on above: CBC/CMP(PICC)D29 MITOMYCIN/5FU/LAB EARLY /XRT/AUTH EXP?* (SO)CBC/CMP(S)(PICC) /D29 MITOMYCIN/5FU/XRT/AUTH EXP?* (SO)CBC/CMP(S)(PICC) /D29 5FU/XRT* (SO)CBC/CMP(S)(PORT) /D29 5FU/XRT* Start: 11-02-2024 End: 11-02-2024 Patient encounter procedure 11/02/2024 9:30 AM EDT Appointment Radiation Oncology [address] [place] [address] CON CHEMO Radiation Oncology Comment on above: CON CHEMO Start: 10-30-2024 End: 10-30-2024 Admission to same day surgery center 10/30/2024 1:00 PM EDT - 10/30/2024 2:30 PM EDT Surgery [facility] Procedure [id number] [place] [address] Ortega Cardenas MD [address] [place] [address] INSERTION PORT VENOUS ACCESS ADULT [facility] Procedure Comment on above: INSERTION PORT VENOUS ACCESS ADULT Start: 10-30-2024 End: 10-30-2024 Insj tunneled ctr vad w/subq port age 4 yr/> AV IR Start: 10-30-2024 Subsequent hospital visit by physician 10/30/2024 1:00 PM EDT Hospital Encounter [facility] Procedure [id number] [address] Ortega Cardenas MD [address] [place] [address] Anal cancer (HCC) [C21.0] [facility] Procedure Comment on above: Anal cancer (HCC) [C21.0] Start: 10-30-2024 End: 10-30-2024 Patient encounter procedure 10/30/2024 9:30 AM EDT Appointment Radiation Oncology [address] [place] [address] CON CHEMO Radiation Oncology Comment on above: CON CHEMO Start: 10-30-2024 End: 10-30-2024 ambulatory Hematology/Oncology Comment on above: PICC DRESSING CHANGE* CBC/CMP(PICC)* LAB EARLY(PICC)/OV-P er nursing staff phone note 10/21* (SO)CBC/CMP(S)(PICC) * Start: 10-30-2024 [facility] Start: 10-29-2024 End: 10-29-2024 Patient encounter procedure 10/29/2024 9:30 AM EDT Appointment Radiation Oncology [address] [place] [address] CON CHEMO Radiation Oncology Comment on above: CON CHEMO Start: 10-28-2024 End: 10-28-2024 Patient encounter procedure 10/28/2024 9:30 AM EDT Appointment Radiation Oncology [address] [place] [address] CON CHEMO Radiation Oncology Comment on above: CON CHEMO Start: 10-27-2024 End: 10-27-2024 Patient encounter procedure Radiation Oncology Comment on above: CON CHEMO Location: W-ON TREAT MENT VISIT Start: 10-26-2024 End: 10-26-2024 ambulatory Hematology/Oncology Comment on above: QWK CBC(PICC)DRESSING CHANGE* WK3 OV/(PICC)LAB EAR LY* QWK(SO)CBC(PICC)DRES SING CHANGE* 3WK OV(PICC)LAB ERROL Y* Start: 10-26-2024 End: 10-26-2024 ambulatory 10/26/2024 9:45 AM EDT Results Only [facility] [place] [facility] [address] [place] [address] CBC - No PICC-it is being put in again 10/29/24 [facility] Comment on above: CBC - No PICC-it is being put in again Start: 10-26-2024 End: 10-26-2024 Patient encounter procedure 10/26/2024 9:30 AM EDT Appointment Radiation Oncology [address] [place] [address] CON CHEMO Radiation Oncology Comment on above: CON CHEMO Start: 10-25-2024 [facility] Start: 10-24-2024 [facility] Start: 10-23-2024 End: 10-23-2024 ambulatory 10/23/2024 10:00 AM EDT Infusion Center Hematology/Oncology [address] [place] [address] Wstr, Lab/[place] [facility] [address] [place] [address] PICC DRESSING CHANGE* Hematology/Oncology Comment on above: PICC DRESSING CHANGE* Start: 10-23-2024 End: 10-23-2024 Patient encounter procedure 10/23/2024 9:30 AM EDT Appointment Radiation Oncology [address] [place] [address] CON CHEMO Radiation Oncology Comment on above: CON CHEMO Start: 10-22-2024 End: 10-22-2024 Patient encounter procedure 10/22/2024 9:30 AM EDT Appointment Radiation Oncology [address] [place] [address] CON CHEMO Radiation Oncology Comment on above: CON CHEMO Start: 10-21-2024 End: 10-21-2024 Patient encounter procedure 10/21/2024 9:30 AM EDT Appointment Radiation Oncology [address] [place] [address] CON CHEMO Radiation Oncology Comment on above: CON CHEMO Start: 10-20-2024 End: 10-20-2024 Patient encounter procedure Radiation Oncology Comment on above: CON CHEMO Location: W-ON TREAT MENT VISIT Start: 10-19-2024 End: 10-19-2024 ambulatory Hematology/Oncology Comment on above: QWK CBC(PICC)DRESSING CHANGE* QWK(SO)CBC(PICC)DRES SING CHANGE* Start: 10-19-2024 End: 10-19-2024 Patient encounter procedure 10/19/2024 9:30 AM EDT Appointment Radiation Oncology [address] [place] [address] CON CHEMO Radiation Oncology Comment on above: CON CHEMO Start: 10-16-2024 End: 10-16-2024 ambulatory 10/16/2024 10:00 AM EDT Infusion Center Hematology/Oncology [address] [place] [address] Wstr, Lab/[place] [facility] [address] [place] [address] PICC DRESSING CHANGE* Hematology/Oncology Comment on above: PICC DRESSING CHANGE* Start: 10-16-2024 End: 10-16-2024 Patient encounter procedure 10/16/2024 9:30 AM EDT Appointment Radiation Oncology [address] [place] [address] CON CHEMO Radiation Oncology Comment on above: CON CHEMO Start: 10-15-2024 End: 10-15-2024 Patient encounter procedure 10/15/2024 9:30 AM EDT Appointment Radiation Oncology [address] [place] [address] CON CHEMO Radiation Oncology Comment on above: CON CHEMO Start: 10-14-2024 End: 10-14-2024 Patient encounter procedure 10/14/2024 9:30 AM EDT Appointment Radiation Oncology [address] [place] [address] CON CHEMO Radiation Oncology Comment on above: CON CHEMO Start: 10-13-2024 End: 10-13-2024 Patient encounter procedure Radiation Oncology Comment on above: CON CHEMO Location: W-ON TREAT MENT VISIT Start: 10-12-2024 End: 10-12-2024 ambulatory Hematology/Oncology Comment on above: QWK CBC(PICC)DRESSING CHANGE* QWK(SO)CBC(PICC)DRES SING CHANGE* QWK(SO)CBC(PICC) Start: 10-12-2024 End: 10-12-2024 Patient encounter procedure 10/12/2024 9:30 AM EDT Appointment Radiation Oncology [address] [place] [address] CON CHEMO Radiation Oncology Comment on above: CON CHEMO Start: 10-09-2024 End: 10-09-2024 ambulatory Hematology/Oncology Comment on above: D5 DC CADD* PICC DRESSING CHANGE D5 DC CADD* Start: 10-09-2024 End: 10-09-2024 Patient encounter procedure 10/09/2024 9:30 AM EDT Appointment Radiation Oncology [address] [place] [address] CON CHEMO Radiation Oncology Comment on above: CON CHEMO Start: 10-08-2024 End: 10-08-2024 Patient encounter procedure 10/08/2024 9:30 AM EDT Appointment Radiation Oncology [address] [place] [address] CON CHEMO Radiation Oncology Comment on above: CON CHEMO Start: 10-07-2024 End: 10-07-2024 Patient encounter procedure 10/07/2024 9:30 AM EDT Appointment Radiation Oncology [address] [place] [address] CON CHEMO Radiation Oncology Comment on above: CON CHEMO Start: 10-06-2024 End: 10-06-2024 Patient encounter procedure 10/06/2024 11:30 AM EDT Appointment Radiation Oncology [address] [place] [address] Sidney Joya MD [address] [place] [address] conc chemo Radiation Oncology Comment on above: conc chemo Start: 10-06-2024 End: 10-06-2024 Patient encounter procedure Radiation Oncology Comment on above: CON CHEMO Location: W-ON TREAT MENT VISIT Start: 10-06-2024 End: 10-06-2024 ambulatory 10/06/2024 8:45 AM EDT Results Only [place] [facility] [address] [place] [address] [place] [facility] Start: 10-05-2024 End: 10-05-2024 Patient encounter procedure 10/05/2024 11:00 AM EDT Appointment Radiation Oncology [address] [place], [place] [id number] Sidney Joya MD [address] [place] [id number] CON CHEMO AT 915 WANTS 10 Radiation [...] Office Visit OB/Gynecology [address] [place], [place] [id number] Juan José Cheema MD [address] [place], [place] [id number] Comment: General exam/PAP smear OB/Gynecology Comment on above: Comment: General exam/PAP smear Start: 09-30-2024 End: 09-30-2024 Patient encounter procedure 09/30/2024 9:10 AM EST Office Visit OB/Gynecology [address] [place] [address] Juan José Cheema MD [address] [place] [address] Comment: General exam/PAP smear-Okay to take this spot per Dr. Cheema OB/Gynecology Comment on above: Comment: General exam/PAP smear-Okay to take this spot per Dr. Cheema Start: 09-29-2024 End: 09-29-2024 Nursing evaluation of patient and report 09/29/2024 1:30 PM EST Nurse Visit Radiation Oncology [address] [place] [address] Wstr, Nurse Radt [facility] [address] [place] [id number] consent at 1245 Radiation Oncology Comment on above: consent at 1245 Start: 09-29-2024 End: 09-29-2024 Patient encounter procedure [facility] General Rheumatology and Arthritis Comment on above: 4 mo f/up post Sarah. pe consent at 1245. ful l bladder. conc chemo. marker? Start: 09-25-2024 End: 09-25-2024 ambulatory 09/25/2024 1:30 PM EST [facility] Center Hematology/Oncology [address] [place] [address] Wstr, Portable [place] [facility] [address] [place] [address] CHEMO EDUCATION - ? Hematology/Oncology Comment on above: CHEMO EDUCATION - ? Start: 09-24-2024 End: 09-25-2024 [facility] Start: 09-23-2024 End: 09-23-2024 Patient encounter procedure 09/23/2024 3:20 PM EST Appointment Cat Scan [address] [place] [id number] Dx: Anal cancer (HCC) [C21.0] Cat Scan Comment on above: Dx: Anal cancer (HCC) [C21.0] Start: 09-23-2024 Subsequent hospital visit by physician 09/23/2024 2:30 PM EST Hospital Encounter Radiology [address] [place], [place] [address] Anal cancer (HCC) [C21.0] Radiology Comment on above: Anal cancer (HCC) [C21.0] Start: 09-23-2024 End: 09-23-2024 Patient encounter procedure Radiology Comment on above: Dx: Anal cancer (HCC) [C21.0] Start: 09-18-2024 End: 09-18-2024 Patient encounter procedure 09/18/2024 10:00 AM EST Office Visit [facility] General Rheumatology and Arthritis [address] [address] [address] [place], [place] [id number] Jennifer Arias MD [address] [facility] [address] [place], [place] [id number] 4 mo f/up post Sarah. pe [facility] General Rheumatology and Arthritis Comment on above: 4 mo f/up post Sarah. pe Start: 09-17-2024 End: 09-17-2024 Patient encounter procedure 09/17/2024 10:30 AM EST Office Visit Radiation Oncology [address] [place], [place] [id number] Sidney Joya MD [address] [place] [address] Anal cancer (HCC) [C21.0] Radiation Oncology Comment on above: Anal cancer (HCC) [C21.0] Start: 09-15-2024 End: 09-15-2024 ambulatory 09/15/2024 3:00 PM EST Visit (SP) Office Hematology/Oncology [address] [place] [address] Josh Bennett DO [address] [place] [address] Patient requested this date/time-EST COMPLEX, SEEN HERE [...] (HCC) Expected: 09/15/2024, Expires: 12/15/2024 [facility] Work Phone: Comment on above: Expected: 09/15/2024, Expires: Start: 09-15-2024 End: 12-15-2024 DPYD/UGT1A1 GENOTYPING PANEL DPYD/UGT1A1 GENOTYPING PANEL Lab Routine Anal cancer (HCC) Expected: 09/15/2024, Expires: 12/15/2024 [facility] Comment on above: Expected: 09/15/2024, Expires: Start: 09-15-2024 End: 12-15-2024 HIV 1+2 Ab [Presence] in Serum or Plasma by Immunoassay HIV 1/2 COMBO WITH REFLEX TO DIFFERENTIATION Lab Routine Anal cancer (HCC) Expected: 09/15/2024, Expires: 12/15/2024 [facility] Comment on above: Expected: 09/15/2024, Expires: Start: 09-03-2024 Patient discharge [facility] Start: 09-03-2024 [facility] Start: 09-02-2024 End: 09-03-2024 [facility] Start: 09-02-2024 Following clinical pathway protocol [facility] Start: 09-02-2024 Ambulation without limitation [facility] Start: 09-02-2024 Assessment of risk of venous thromboembolism [facility] Start: 09-02-2024 Catheterization of vein [facility] Start: 09-02-2024 Insertion of catheter into peripheral vein [facility] Start: 09-02-2024 Measuring intake and output [facility] Start: 09-02-2024 Providing care according to standard [facility] Start: 09-02-2024 Admission procedure [facility] Start: 09-02-2024 Anesthesia anorectal procedure ANESTH ANORECTAL SURGERY [facility] Start: 09-02-2024 Anoscopy w/bx single/multiple ANOSCOPY AND BIOPSY [facility] Start: 09-02-2024 I&d intramural im/absc transanal anes INCISION OF RECTAL ABSCESS [facility] Start: 09-02-2024 Patient referral to dietitian [facility] Start: 09-02-2024 [facility] Start: 08-20-2024 End: 08-20-2024 Patient encounter procedure [facility] [place] Comment on above: *orencia Q4wks Osteoporosis, unspec ified osteoporosis type, unspecified pathological fracture presence [M81.0] Start: 08-20-2024 End: 08-20-2024 ambulatory Hematology/Oncology Comment on above: 2 MO OV/LABS 08/17* CBC/IRON STUDIES* Start: 08-19-2024 End: 08-19-2024 ambulatory 08/19/2024 9:30 AM EST Visit (SP) Office Hematology/Oncology [address] [place] [address] Judi Portillo [address] [place] [address] 2 MO OV/LABS 08/17* Hematology/Oncology Comment on above: 2 MO OV/LABS 08/17* Start: 08-17-2024 End: 08-17-2024 ambulatory 08/17/2024 9:00 AM EST Results Only [place] [facility] [address] [place] [address] CBC/IRON STUDIES* [facility] Comment on above: CBC/IRON STUDIES* Start: 08-13-2024 End: 08-13-2024 Patient encounter procedure 08/13/2024 1:30 PM EST Infusion Center [facility] [place] [address] [place] [address] *orencia Q4wks + labs 200C [facility] [place] Comment on above: *orencia Q4wks + labs 200C Start: 07-29-2024 Advance Directive Discussion Advance Directive Discussion [facility] Start: 07-29-2024 Medicare Advantage Annual Wellness Visit Medicare Advantage Annual Wellness Visit [facility] Start: 07-23-2024 End: 07-23-2024 Patient encounter procedure 07/23/2024 10:30 AM EST [facility] [address] [place] [place] [address] *orencia Q4wks [facility] Comment on above: *orencia Q4wks Start: 07-16-2024 End: 07-16-2024 Patient encounter procedure 07/16/2024 1:30 PM EST [facility] [address] [place] [address] *orencia Q4wks + labs 200C [facility] Comment on above: *orencia Q4wks + labs 200C Start: 07-15-2024 End: 07-15-2024 Patient encounter procedure 07/15/2024 10:00 AM EST [facility] [address] [place] [address] /// orencia Q4wks [facility] Comment on above: /// orencia Q4wks Start: 07-10-2024 Screening for osteoporosis Bone Density Screening [facility] Start: 07-10-2024 End: 07-10-2024 ambulatory 07/10/2024 10:00 AM EST Infusion Center Hematology/Oncology [address] [place] [address] 2nd Hematology/Oncology Comment on above: 2nd Start: 07-08-2024 End: 07-08-2024 ambulatory 07/08/2024 9:30 AM EST Infusion Center Hematology/Oncology [address] [place] [address] 2nd Hematology/Oncology Comment on above: 2nd Start: 07-06-2024 End: 07-06-2024 ambulatory 07/06/2024 1:30 PM EST Infusion Center Hematology/Oncology [address] [place] [address] 2nd Hematology/Oncology Comment on above: 2nd Start: 07-03-2024 End: 07-03-2024 ambulatory 07/03/2024 10:00 AM EST Infusion Center Hematology/Oncology [address] [place] [address] START IRON SUCROSE/D1-5/AUTH EXP ?* Hematology/Oncology Comment on above: START IRON SUCROSE/D1-5/AUTH EXP ?* Start: 07-02-2024 End: 07-02-2024 ambulatory 07/02/2024 8:30 AM EST Infusion Center Hematology/Oncology [address] [place] [address] 2nd Hematology/Oncology Comment on above: 2nd Start: 07-01-2024 End: 07-01-2024 ambulatory 07/01/2024 10:00 AM EST Infusion Center Hematology/Oncology [address] [place] [address] START IRON SUCROSE/D1-5/AUTH EXP ?* Hematology/Oncology Comment on above: START IRON SUCROSE/D1-5/AUTH EXP ?* Start: 06-29-2024 End: 06-29-2024 ambulatory 06/29/2024 9:00 AM [facility] Infusion Center Hematology/Oncology [address] [place] [address] START IRON SUCROSE/D1-5/AUTH EXP ?* Hematology/Oncology Comment on above: START IRON SUCROSE/D1-5/AUTH EXP ?* Start: 06-26-2024 End: 06-26-2024 ambulatory 06/26/2024 8:30 AM EST Infusion Center Hematology/Oncology [address] [place] [address] START IRON SUCROSE/D1-5/AUTH EXP ?* Hematology/Oncology Comment on above: START IRON SUCROSE/D1-5/AUTH EXP ?* Start: 06-24-2024 End: 06-24-2024 Patient encounter procedure 06/24/2024 10:30 AM EST Infusion Center [facility] [address] [place] [address] *orencia Q4wks [facility] Comment on above: *orencia Q4wks Start: 06-22-2024 End: 06-22-2024 ambulatory 06/22/2024 9:30 AM EST Infusion Center Hematology/Oncology [address] [place] [address] START IRON SUCROSE/D1-5/AUTH EXP ?* Hematology/Oncology Comment on above: START IRON SUCROSE/D1-5/AUTH EXP ?* Start: 06-18-2024 End: 06-18-2024 Patient encounter procedure 06/18/2024 1:30 PM EST Infusion Center [facility] [address] [place] [address] *orencia Q4wks + labs 200C [facility] Comment on above: *orencia Q4wks + labs 200C Start: 06-18-2024 End: 06-18-2024 ambulatory 06/18/2024 10:00 AM EST Infusion Center Hematology/Oncology [address] [place] [address] 2ND Hematology/Oncology Comment on above: 2ND Start: 06-17-2024 End: 06-17-2024 Patient encounter procedure 06/17/2024 10:00 AM EST Infusion Center [facility] [address] [place] [address] /// orencia Q4wks [facility] Comment on above: /// orencia Q4wks Start: 06-15-2024 End: 09-14-2024 Ferritin [Mass/volume] in Serum or Plasma [facility] Comment on above: Expected: 06/15/2024, Expires: Start: 06-15-2024 End: 09-14-2024 Iron and Iron binding capacity panel - Serum or Plasma [facility] Work Phone: Comment on above: Expected: 06/15/2024, Expires: Start: 06-15-2024 End: 06-15-2024 Patient encounter procedure 06/15/2024 1:30 PM EST Visit (SP) Office Hematology/Oncology [address] [place] [address] Josh Bennett DO [address] [place] [address] (First open appointment)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/Iron deficiency anemia, unspecified iron deficiency anemia type [D50.9]/Sarah Pearson PA-C* Hematology/Oncology Comment on above: (First open appointment)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/Iron deficien cy anemia, unspecified iron deficiency anemia type [D50.9]/Sarah Pearson PA-C* Start: 05-28-2024 End: 05-28-2024 Patient encounter procedure 05/28/2024 10:30 AM EDT Infusion Center [facility] [address] [place] [address] *orencia Q4wks [facility] Comment on above: *orencia Q4wks Start: 05-20-2024 End: 05-20-2024 Patient encounter procedure 05/20/2024 10:00 AM EDT Infusion Center [facility] [address] [place] [address] /// orencia Q4wks [facility] Comment on above: /// orencia Q4wks Start: 05-19-2024 DIABETES SCREEN DIABETES SCREEN [facility] Start: 05-14-2024 End: 05-14-2024 Patient encounter procedure 05/14/2024 11:40 AM EDT Office Visit [facility] Rheumatology and Arthritis [address] [place], [place] [address] Jennifer Arias MD [address] [place] [address] Oct end in office [facility] General Rheumatology and Arthritis Comment on above: Oct end in office Start: 05-06-2024 End: 05-06-2024 Patient encounter procedure 05/06/2024 10:30 AM EDT Infusion Center [facility] [address] [place] [address] orencia [facility] [place] Comment on above: orencia Start: 04-30-2024 End: 04-30-2024 Patient encounter procedure [facility] [place] Comment on above: //// reclast NEW LOCATION //// reclast + Orenc ia * reclast + Orencia Start: 04-22-2024 End: 04-22-2024 Patient encounter procedure 04/22/2024 10:30 AM EDT Infusion Center [facility] [place] [address] [place] [address] *orencia Q4wks [facility] [place] Comment on above: *orencia Q4wks Start: 2024 Advance Directive Discussion Advance Directive Discussion [facility] Start: 2024 PNEUMOCOCCAL (4 - PPSV23 if available, else PCV20) PNEUMOCOCCAL (4 - PPSV23 if available, else PCV20) [facility] Start: 2024 PNEUMOCOCCAL (4 - PPSV23 or PCV20) PNEUMOCOCCAL (4 - PPSV23 or PCV20) [facility] Start: 2024 Pneumococcal vaccination [facility] Start: 2024 Pneumococcal Vaccine: 65+ (4 of 4 - PPSV23 or PCV20) Pneumococcal Vaccine: 65+ (4 of 4 - PPSV23 or PCV20) [facility] Start: 2024 End: 2024 Patient encounter procedure 2024 10:30 AM EDT Infusion Center [facility] [place] [address] [place] [address] orencia [facility] [place] Comment on above: orencia Start: 03-29-2024 Influenza vaccination [facility] Start: 03-25-2024 End: 03-25-2024 Patient encounter procedure 03/25/2024 10:00 AM EDT Infusion Center [facility] [address] [place] [address] *orencia Q4wks [facility] Comment on above: *orencia Q4wks Start: 03-11-2024 Pneumococcal Vaccine: 50+ (4 of 4 - PCV20 or PCV21) Pneumococcal Vaccine: 50+ (4 of 4 - PCV20 or PCV21) [facility] Start: 03-11-2024 Urine microalbumin profile [facility] Start: 03-11-2024 End: 03-11-2024 Patient encounter procedure 03/11/2024 10:30 AM EDT [facility] Center [address] [place] [address] orencia [facility] [place] Comment on above: orencia Start: 03-03-2024 End: 03-03-2024 Patient encounter procedure 03/03/2024 3:20 PM EDT [facility] Rheumatology and Arthritis [address] [place] [address] Sarah Pearson, PA-C [address] [place] [address] Oct end in office [facility] Rheumatology and Arthritis Comment on above: Oct end in office Start: 02-26-2024 End: 02-26-2024 Patient encounter procedure 02/26/2024 10:00 AM EDT Infusion Center [facility] [address] [place] [address] *orencia Q4wks [facility] [place] Comment on above: *orencia Q4wks Start: 02-25-2024 End: 02-25-2024 Patient encounter procedure 02/25/2024 9:40 AM EDT [facility] [address] [place] [address] Sarah Pearson, PA-C [address] [place] [address] Oct end in office [facility] Rheumatology and Arthritis Comment on above: Oct end in office Start: 02-12-2024 End: 02-12-2024 Patient encounter procedure 02/12/2024 10:30 AM EDT Infusion Center [facility] [address] [place] [address] orencia [facility] Comment on above: orencia Start: 01-29-2024 End: 01-29-2024 Patient encounter procedure 01/29/2024 10:00 AM EDT Infusion Center [facility] [address] [place] [address] *orencia Q4wks [facility] Comment on above: *orencia Q4wks Start: 01-15-2024 End: 01-15-2024 Patient encounter procedure 01/15/2024 10:30 AM EDT Infusion Center [facility] [address] [place] [address] orencia [facility] Comment on above: orencia Start: 12-18-2023 End: 12-18-2023 Patient encounter procedure 12/18/2023 10:30 AM EDT Infusion Center [facility] [address] [place] [address] [facility] Comment on above: orencia Start: 11-21-2023 End: 11-21-2023 Patient encounter procedure 11/21/2023 11:00 AM EDT [facility] [address] [place], [place] [id number] Jennifer Arias MD [address] [place] [address] Return in about 6 months (around 11/20/2023) for , Dr. Arias. [facility] Comment on above: Return in about 6 months (around 11/20/19) for RADr. Arias. Start: 11-19-2023 Lipid 1996 panel - Serum or Plasma Lipid Screening [facility] Start: 11-19-2023 Lipid panel Lipid Screening [facility] Start: 11-19-2023 LIPID SCREEN LIPID SCREEN [facility] Start: 10-19-2023 [facility] Start: 10-19-2023 Incentive spirometry [facility] Start: 09-06-2023 Elastase.pancreatic [Presence] in Stool [facility] Start: 09-06-2023 Giardia lamblia Ag [Presence] in Stool by Immunoassay [facility] Start: 09-06-2023 Procedure [facility] Start: 05-17-2023 ANNUAL PCP TEAM CHRONIC DISEASE VISIT ANNUAL PCP TEAM CHRONIC DISEASE VISIT [facility] Start: 04-25-2023 End: 04-23-2024 BLOOD TB SCREEN, INCUBATED [facility] Work Phone: Comment on above: Expected: 04/25/2023, Expires: 4 Start: 04-25-2023 End: 06-25-2023 Chronic hepatitis differentiation between hepatitis B and C virus panel - Serum or Plasma [facility] Work Phone: Comment on above: Expected: 04/25/2023, Expires: 3 Start: 03-29-2023 Influenza vaccination [facility] Start: 02-06-2023 HPV TESTING HPV TESTING [facility] Start: 02-06-2023 PAP TESTING PAP TESTING [facility] Start: 02-06-2023 Screening for malignant neoplasm of cervix [facility] Start: 01-24-2023 Patient discharge [facility] Start: 01-23-2023 Following clinical pathway protocol [facility] Start: 01-23-2023 Application of intermittent pneumatic compression device [facility] Start: 01-23-2023 Provision of overbed trapeze [facility] Start: 01-23-2023 Recommendation to continue with treatment [facility] Start: 01-23-2023 Admission procedure [facility] Start: 01-23-2023 Ambulation therapy management [facility] Start: 01-23-2023 Application of device [facility] Start: 01-23-2023 Assessment of risk of venous thromboembolism [facility] Start: 01-23-2023 Catheterization of vein [facility] Start: 01-23-2023 Exercises [facility] Start: 01-23-2023 Following clinical pathway protocol [facility] Start: 01-23-2023 Incentive spirometry [facility] Start: 01-23-2023 Introduction of urinary catheter [facility] Start: 01-23-2023 Measuring intake and output [facility] Start: 01-23-2023 Neurovascular assessment [facility] Start: 01-23-2023 Patient education [facility] Start: 01-23-2023 Procedure discontinued [facility] Start: 01-23-2023 Provision of activity privileges [facility] Start: 01-23-2023 Referral to occupational therapist [facility] Start: 01-23-2023 Referral to service [facility] Start: 01-23-2023 Vital signs measurements [facility] Start: 01-23-2023 Wound care [facility] Start: 01-23-2023 [facility] Start: 12-05-2022 Protein measurement [facility] Start: 11-06-2022 Colonoscopy w/biopsy single/multiple COLONOSCOPY AND BIOPSY [facility] Start: 11-06-2022 Egd transoral biopsy single/multiple EGD BIOPSY SINGLE/MULTIPLE [facility] Start: 11-06-2022 Patient discharge [facility] Start: 10-18-2022 End: 12-18-2022 25-hydroxyvitamin D3 [Mass/volume] in Serum or Plasma [facility] Work Phone: Comment on above: Expected: 10/18/2022, Expires: 3 Start: 10-18-2022 End: 12-18-2022 C reactive protein [Mass/volume] in Serum or Plasma [facility] Work Phone: Comment on above: Expected: 10/18/2022, Expires: 3 Start: 10-18-2022 End: 12-18-2022 Comprehensive metabolic 2000 panel - Serum or Plasma [facility] Work Phone: Comment on above: Expected: 10/18/2022, Expires: 3 Start: 10-18-2022 End: 12-18-2022 Erythrocyte sedimentation rate [facility] Work Phone: Comment on above: Expected: 10/18/2022, Expires: 3 Start: 10-18-2022 End: 12-18-2022 Parathyrin.intact [Mass/volume] in Serum or Plasma [facility] Work Phone: Comment on above: Expected: 10/18/2022, Expires: 3 Start: 10-06-2022 ANNUAL PCP TEAM CHRONIC DISEASE VISIT ANNUAL PCP TEAM CHRONIC DISEASE VISIT [facility] Start: 10-06-2022 BP CONTROLLED (<130/80) BP CONTROLLED (<130/80) [facility] Start: 03-29-2022 Influenza vaccination INFLUENZA (#1) [facility] Start: 01-23-2022 End: 03-25-2022 Hemoglobin A1c in Blood HGB A1C Lab Routine Class 1 obesity with body mass index (BMI) of 34.0 to 34.9 in adult Expected: 01/23/2022, Expires: 03/25/2022 [facility] Work Phone: Comment on above: Expected: 01/23/2022, Expires: 2 Start: 01-23-2022 End: 03-25-2022 Lipid 1996 panel - Serum or Plasma LIPID PANEL BASIC Lab Routine Hyperlipidemia with target LDL less than 130 Expected: 01/23/2022, Expires: 03/25/2022 [facility] Work Phone: Comment on above: Expected: 01/23/2022, Expires: 2 Start: 01-23-2022 End: 03-25-2022 SCHEDULE LAB TESTING SCHEDULE LAB TESTING Lab Routine Expected: 01/23/2022, Expires: 03/25/2022 [facility] Work Phone: Comment on above: Expected: 01/23/2022, Expires: 2 Start: 03-03-2021 Influenza vaccination LUNG CANCER SCREENING [facility] Start: 03-03-2021 Screening for malignant neoplasm of lung Lung Cancer Screening [facility] Start: 2019 RSV Vaccine (1 - 1-dose 60+ series) RSV Vaccine (1 - 1-dose 60+ series) [facility] Start: 2019 RSV Vaccine (1 - Risk 60-74 years 1-dose series) RSV Vaccine (1 - Risk 60-74 years 1-dose series) [facility] Start: 02-06-2019 Screening for malignant neoplasm of cervix Cervical Cancer Screening [facility] Start: 12-10-2018 Mammography [facility] Start: 12-10-2018 Screening for malignant neoplasm of breast Mammogram Screening [facility] Start: 2009 SHINGRIX VACCINE (1 of 2) SHINGRIX VACCINE (1 of 2) [facility] Start: 2004 COLOGUARD (FIT-DNA) COLOGUARD (FIT-DNA) [facility] Start: [address] COLONOGRAPHY [facility] Start: 2004 FECAL OCCULT BLOOD FECAL OCCULT BLOOD [facility] Start: 2004 Screening for malignant neoplasm of colon [facility] Start: 2004 SIGMOIDOSCOPY SIGMOIDOSCOPY [facility] Start: 1989 Zoledronic acid therapy ALPHA-1 ANTITRYPSIN DEFICIENCY SCREENING [facility] Start: 1978 SHINGRIX VACCINE (1 of 2) SHINGRIX VACCINE (1 of 2) [facility] Start: 1977 Anxiety Screening Anxiety Screening [facility] Start: 1977 BP CONTROLLED (<130/80) BP CONTROLLED (<130/80) [facility] Start: 1977 HIV SCREENING HIV SCREENING [facility] Start: 1977 HIV screening HIV Screening [facility] Start: 1971 COVID-19 VACCINE (1) COVID-19 VACCINE (1) [facility] Start: 1964 COVID-19 VACCINE (#1) COVID-19 VACCINE (#1) [facility] Start: 1959 COVID-19 VACCINE (#1) COVID-19 VACCINE (#1) [facility] End: 10-25-2023 25-hydroxyvitamin D3 [Mass/volume] in Serum or Plasma VITAMIN D 25 HYDROXY Lab Routine Rheumatoid arthritis involving multiple sites, unspecified whether rheumatoid factor present (HCC) Vitamin D deficiency Every 6 months for 2 Occurrences starting 10/25/2022 until 10/25/2023 [facility] Work Phone: Comment on above: Every 6 months for 2 Occurrences startin g 10/25/2022 until 10/25/2023 C reactive protein [Mass/volume] in Serum or Plasma C-REACTIVE PROTEIN (CRP) Lab Routine Rheumatoid arthritis involving multiple sites with positive rheumatoid factor (HCC) 11/02/2021 10:51 AM EDT [facility] Work Phone: End: 10-24-2023 C reactive protein [Mass/volume] in Serum or Plasma C-REACTIVE PROTEIN (CRP) Lab Routine Rheumatoid arthritis involving multiple sites, unspecified whether rheumatoid factor present (HCC) Every 3 months for 4 Occurrences starting 10/25/2022 until 10/24/2023 [facility] Work Phone: Comment on above: Every 3 months for 4 Occurrences startin g 10/25/2022 until 10/24/2023 End: 10-24-2023 CBC panel - Blood by Automated count CBC Lab Routine Rheumatoid arthritis involving multiple sites, unspecified whether rheumatoid factor present (HCC) Every 3 months for 4 Occurrences starting 10/25/2022 until 10/24/2023 [facility] Work Phone: Comment on above: Every 3 months for 4 Occurrences startin g 10/25/2022 until 10/24/2023 CBC W Auto Different ial panel - Blood CBC + DIFF Lab Routine Rheumatoid arthritis involving multiple sites with positive rheumatoid factor (HCC) 11/02/2021 10:51 AM EDT [facility] Work Phone: End: 11-19-2024 CBC W Auto Differential panel - Blood COMPLETE BLOOD COUNT AND DIFFERENTIAL Lab Routine Rheumatoid arthritis involving multiple sites with positive rheumatoid factor (HCC) Every 3 months for 4 Occurrences starting 11/20/2023 until 11/19/2024, 1 completed [facility] Work Phone: Comment on above: Every 3 months for 4 Occurrences startin g 11/20/2023 until 11/19/2024, 1 completed End: 01-28-2025 CBC W Auto Differential panel - Blood COMPLETE BLOOD COUNT AND DIFFERENTIAL Lab Routine Rheumatoid arthritis involving multiple sites with positive rheumatoid factor (HCC) Every 3 months for 4 Occurrences starting 01/29/2024 until 01/28/2025 [facility] Work Phone: Comment on above: Every 3 months for 4 Occurrences startin g 01/29/2024 until 01/28/2025 End: 05-21-2025 CBC W Auto Differential panel - Blood COMPLETE BLOOD COUNT AND DIFFERENTIAL Lab Routine Rheumatoid arthritis involving multiple sites with positive rheumatoid factor (HCC) Every 3 months for 4 Occurrences starting 05/21/2024 until 05/21/2025, 1 completed [facility] Work Phone: Comment on above: Every 3 months for 4 Occurrences startin g 05/21/2024 until 05/21/2025, 1 completed CBC W Auto Different ial panel - Blood [facility] Chronic hepatitis differentiation between hepatitis B and C virus panel - Serum or Plasma HEP REMOTE PANEL BL Lab Routine Anal cancer (HCC) 09/16/2024 12:35 PM [facility] Clostridioides diffi cile DNA [Presence] in Unspecified specimen by CORAL with probe detection [facility] Colonoscopy [facility] Comprehensive metabo lic 2000 panel - Serum or Plasma COMP METABOLIC PANEL Lab Routine Rheumatoid arthritis involving multiple sites with positive rheumatoid factor (HCC) 11/02/2021 10:51 AM EDT [facility] Work Phone: End: 10-24-2023 Comprehensive metabolic 2000 panel - Serum or Plasma COMP METABOLIC PANEL Lab Routine Rheumatoid arthritis involving multiple sites, unspecified whether rheumatoid factor present (HCC) Every 3 months for 4 Occurrences starting 10/25/2022 until 10/24/2023 [facility] Work Phone: Comment on above: Every 3 months for 4 Occurrences startin g 10/25/2022 until 10/24/2023 End: 11-19-2024 Comprehensive metabolic 2000 panel - Serum or Plasma COMPREHENSIVE METABOLIC PANEL Lab Routine Rheumatoid arthritis involving multiple sites with positive rheumatoid factor (HCC) Every 3 months for 4 Occurrences starting 11/20/2023 until 11/19/2024, 1 completed [facility] Comment on above: Every 3 months for 4 Occurrences startin g 11/20/2023 until 11/19/2024, 1 completed End: 01-28-2025 Comprehensive metabolic 2000 panel - Serum or Plasma COMPREHENSIVE METABOLIC PANEL Lab Routine Rheumatoid arthritis involving multiple sites with positive rheumatoid factor (HCC) Every 3 months for 4 Occurrences starting 01/29/2024 until 01/28/2025 [facility] Comment on above: Every 3 months for 4 Occurrences startin g 01/29/2024 until 01/28/2025 End: 05-21-2025 Comprehensive metabolic 2000 panel - Serum or Plasma COMPREHENSIVE METABOLIC PANEL Lab Routine Rheumatoid arthritis involving multiple sites with positive rheumatoid factor (HCC) Every 3 months for 4 Occurrences starting 05/21/2024 until 05/21/2025 [facility] Comment on above: Every 3 months for 4 Occurrences startin g 05/21/2024 until 05/21/2025 Comprehensive metabo lic 2000 panel - Serum or Plasma COMPREHENSIVE METABOLIC PANEL Lab Routine Rheumatoid arthritis involving multiple sites with positive rheumatoid factor (HCC) 05/21/2024 1:31 PM EDT [facility] Comprehensive metabo lic 2000 panel - Serum or Plasma [facility] End: 04-18-2026 CT Abdomen and Pelvis W contrast IV CT ABD/PEL W IVCON Radiology Routine Malignant neoplasm of anus (HCC) 1 Occurrences starting 03/19/2025 until 04/18/2026 [facility] Work Phone: Comment on above: 1 Occurrences starting 03/19/2025 until 04/18/2026 End: 10-16-2025 CT Chest W contrast IV CT CHEST W IVCON Radiology STAT Anal cancer (HCC) 1 Occurrences starting 09/16/2024 until 10/16/2025 [facility] Work Phone: Comment on above: 1 Occurrences starting 09/16/2024 until 10/16/2025 End: 04-18-2026 CT Chest W contrast IV CT CHEST W IVCON Radiology Routine Malignant neoplasm of anus (HCC) 1 Occurrences starting 03/19/2025 until 04/18/2026 [facility] Comment on above: 1 Occurrences starting 03/19/2025 until 04/18/2026 CT Guidance for radi ation treatment of Unspecified body region CT SIM PLANNING RADIATION ONCOLOGY Radiology Routine Anal cancer (HCC) Ordered: 10/01/2024 [facility] Work Phone: Comment on above: Ordered: 10/01/2024 End: 10-30-2025 DBT Breast - bilateral screening MARIA TERESA SCREENING [facility] [place] Radiology Routine Encounter for gynecological examination (general) (routine) without abnormal findings Encounter for screening mammogram for breast cancer 1 Occurrences starting 09/30/2024 until 10/30/2025 [facility] Work Phone: Comment on above: 1 Occurrences starting 09/30/2024 until 10/30/2025 DBT Breast - bilater al screening MARIA TERESA SCREENING [facility] [place] Radiology Routine Encounter for gynecological examination (general) (routine) without abnormal findings Encounter for screening mammogram for breast cancer 09/30/2024 10:49 AM [facility] [id number] GENOTYPI NG PANEL [id number] GENOTYPING PANEL Lab Routine Anal cancer ([facility]) 09/16/2024 12:35 PM [facility] End: 07-26-2023 Dxa bone density study 1/> sites axial skel DXA-AXIAL SKELETON Radiology Routine Localized osteoporosis without current pathological fracture 1 Occurrences starting 06/26/2022 until 07/26/2023 [facility] Work Phone: Comment on above: 1 Occurrences starting 06/26/2022 until 07/26/2023 End: 06-14-2025 DXA Skeletal system.axial Views for bone density DXA-AXIAL SKELETON Radiology Routine Osteoporosis, unspecified osteoporosis type, unspecified pathological fracture presence 1 Occurrences starting 05/15/2024 until 06/14/2025 [facility] Work Phone: Comment on above: 1 Occurrences starting 05/15/2024 until 06/14/2025 DXA Skeletal system. axial Views for bone density DXA-AXIAL SKELETON Radiology Routine Osteoporosis, unspecified osteoporosis type, unspecified pathological fracture presence 08/20/2024 9:45 AM [facility] Work Phone: Elastase, pancreatic (el-1), fecal; quantitative [facility] Erythrocyte sediment ation rate SED RATE WESTERGREN Lab Routine Rheumatoid arthritis involving multiple sites with positive rheumatoid factor ([facility]) 11/02/2021 10:51 AM EDT [facility] Work Phone: Erythrocyte sediment ation rate SED RATE WESTERGREN Lab Routine Rheumatoid arthritis involving multiple sites with positive rheumatoid factor ([facility]) 03/05/2022 1:14 PM EDT [facility] Work Phone: Erythrocyte sediment ation rate SED RATE WESTERGREN Lab Routine Rheumatoid arthritis involving multiple sites with positive rheumatoid factor (HCC) 07/17/2022 11:28 AM EST [facility] Work Phone: End: 10-24-2023 Erythrocyte sedimentation rate SED RATE WESTERGREN Lab Routine Rheumatoid arthritis involving multiple sites, unspecified whether rheumatoid factor present ([facility]) Every 3 months for 4 Occurrences starting 10/25/2022 until 10/24/2023 [facility] Work Phone: Comment on above: Every 3 months for 4 Occurrences startin g 10/25/2022 until 10/24/2023 Gastrointestinal pathogens panel - Stool by CORAL with probe detection [facility] Giardia lamblia Ag [Presence] in Stool by Immunoassay [facility] Hepatitis B virus co re Ab [Presence] in Serum HEP B CORE AB TOTAL Lab Routine Rheumatoid arthritis involving multiple sites, unspecified whether rheumatoid factor present ([facility]) 04/25/2023 10:33 AM EDT [facility] Work Phone: HIV 1+2 Ab [Presence ] in Serum or Plasma by Immunoassay HIV 1/2 COMBO WITH REFLEX TO DIFFERENTIATION Lab Routine Anal cancer ([facility]) 09/16/2024 12:35 PM EST [facility] Influenza virus A an d B RNA and SARS-CoV-2 (COVID-19) N gene panel - Respiratory specimen by CORAL with probe detection COVID WITH FLUA+B, ROUTINE Microbiology Routine Exposure to 2019 novel coronavirus Ordered: 05/16/2022 [facility] Work Phone: Comment on above: Ordered: 05/16/2022 Lactoferrin [Presenc e] in Stool by Immunoassay [facility] Lactoferrin [Presenc e] in Stool by Immunoassay [facility] Lactoferrin [Presenc e] in Stool by Immunoassay [facility] End: 02-23-2023 MARIA TERESA SCREENING [facility] [place] MARIA TERESA SCREENING [facility] [place] Radiology Routine Encounter for screening mammogram for breast cancer 1 Occurrences starting 01/24/2022 until 02/23/2023 [facility] Work Phone: Comment on above: 1 Occurrences starting 01/24/2022 until 02/23/2023 End: 10-16-2025 MR Pelvis WO and W contrast IV MRI PELVIS WO/W IVCON Radiology STAT Anal cancer (HCC) 1 Occurrences starting 09/16/2024 until 10/16/2025 [facility] Comment on above: 1 Occurrences starting 09/16/2024 until 10/16/2025 MR Pelvis WO and W contrast IV MRI PELVIS WO/W IVCON Radiology STAT Anal cancer (HCC) 09/23/2024 4:24 PM EST [facility] Work Phone: MR Pelvis WO and W contrast IV MRI PELVIS WO/W IVCON Radiology Routine Malignant neoplasm of anus (HCC) Anal cancer (HCC) 02/01/2025 11:43 AM EDT [facility] Work Phone: MRI of small intestine [facility] Ova and parasites identified in Unspecified specimen by Light microscopy [facility] PAP TEST PAP TEST Lab Stephaine pickens Encounter for screening for human papillomavirus (HPV) Pap smear for cervical cancer screening 09/30/2024 10:46 AM EST [facility] Patient Education [facility] Work Phone: Patient referral [facility] Work Phone: End: 10-15-2025 PET+CT Guidance for localization of tumor of Skull base to mid-thigh-- W [id number] IV NM PET/CT SKULL-THIGH INITIAL Radiology Routine Anal cancer (HCC) 1 Occurrences starting 09/15/2024 until 10/15/2025 [facility] Comment on above: 1 Occurrences starting 09/15/2024 until 10/15/2025 POST VOID RESIDUAL POST VOID RES IDUAL Procedures Routine Urinary urgency Ordered: 10/21/2024 [facility] Work Phone: Comment on above: Ordered: 10/21/2024 Procedure [facility] Protein measurement [facility] Protein measurement [facility] Protein measurement [facility] Radiologic exam esop hagus double contrast study [facility] Radionuclide gastric emptying study [facility] Stroke after atrial fibrillation 5 year risk [#] Rojelio 2002 IR PORTOCATH PLACEMENT Radiology MORAIMA Anal cancer (HCC) Rheumatoid arthritis involving multiple sites with positive rheumatoid factor (HCC) Ordered: 10/26/2024 [facility] Work Phone: Comment on above: Ordered: 10/26/2024 US Lower extremity vein US LEG V EIN DVT [facility] Vascular Lab STAT Anal cancer (HCC) Right leg pain 09/16/2024 11:36 AM EST [facility] End: 10-19-2025 US Upper extremity veins US ARM VEIN DVT [facility] Vascular Lab STAT Anal cancer (HCC) PICC (peripherally inserted central catheter) in place Arm swelling 1 Occurrences starting 10/19/2024 until 10/19/2025 [facility] Work Phone: Comment on above: 1 Occurrences starting 10/19/2024 until 10/19/2025 Vitamin B12 measurement [facility] Vitamin D, 25-hydrox y measurement [facility] End: 07-26-2023 XR HIP GENERAL 3V PELV/AP/LAT LEFT XR HIP GENERAL 3V PELV/AP/LAT LEFT Radiology Routine Pain in left hip Fall, initial encounter 1 Occurrences starting 06/26/2022 until 07/26/2023 [facility] Work Phone: Comment on above: 1 Occurrences starting 06/26/2022 until 07/26/2023 End: 06-26-2022 XR HIP GENERAL 3V PELV/AP/LAT LEFT [facility] Work Phone: Comment on above: 1 Occurrences starting 06/26/2022 until 06/26/2022 [facility] Immunizations Immunization Date Immunization Notes Care Provider Nilton escobar 08-07-2022 influenza virus vacc ine, unspecified formulation Jennifer Arias MD Work Phone: [facility] 05-01-2021 influenza, injectabl e, quadrivalent, contains preservative Jennifer Arias MD Work Phone: [facility] Work Phone: 06-01-2020 influenza, injectabl e, quadrivalent, contains preservative Jennifer Arias MD Work Phone: [facility] Work Phone: 03-11-2019 pneumococcal polysaccharide vaccine, 23 valent Jennifer Arias MD Work Phone: [facility] Work Phone: 02-09-2019 pneumococcal conjuga te vaccine, 13 valent Jennifer Arias MD Work Phone: [facility] Work Phone: 06-02-2018 influenza, injectabl e, quadrivalent, contains preservative Jennifer Arias MD Work Phone: [facility] Work Phone: 04-16-2017 influenza, injectabl e, quadrivalent, contains preservative Jennifer Arias MD Work Phone: [facility] Work Phone: 07-09-2016 influenza, injectabl e, quadrivalent, contains preservative Jennifer Arias MD Work Phone: [facility] Work Phone: 05-16-2015 influenza, injectabl e, quadrivalent, contains preservative Jennifer Arias MD Work Phone: [facility] 06-03-2014 influenza, seasonal, injectable Jennifer Arias MD Work Phone: [facility] Work Phone: 03-11-2014 pneumococcal polysaccharide vaccine, 23 valent Jennifer Arias MD Work Phone: [facility] Work Phone: 03-11-2014 tetanus toxoid, redu cj diphtheria toxoid, and acellular pertussis vaccine, adsorbed Jennifer Arias MD Work Phone: [facility] Work Phone: 05-12-2012 influenza virus vacc ine, unspecified formulation Jennifer Arias MD Work Phone: [facility] Work Phone: Payers Date Payer Category Payer Medicaid [id number] 2024 Self-pay [id number] 2022 Medicare (Managed Care) 1.2. [id number] 2022 Unknown [id number] 2020 Medicare [facility] MEDICARE [facility] DUAL COMPLETE HMO SNP [id number] 2020-Rust [phone] [address] [place] [address] Medicare [id number] 2020 Medicare [id number] .[id number] 2019 Medicaid [id number]. 1.13.159.2.7 .[id number] 2015 Unknown [id number] 1959 Unknown [id number] 2.16.840.1.307647.3.579.2.6 51 1959 Unknown [id number] 2.16.840.1.592531.3.579.2.6 51 1959 Unknown [id number] 2.16.840.1.973439.3.579.2.6 51 1959 Unknown [id number] 2.16.840.1.885463.3.579.2.6 51 1959 Unknown [id number] 2.16.840.1.214217.3.579.2.6 51 1959 Unknown [id number] 2.16.840.1.988544.3.579.2.6 51 1959 Unknown [id number] 2.16.840.1.944802.3.579.2.6 51 1959 Unknown [id number] 2.16.840.1.185108.3.579.2.6 51 Medicare [id number] Medicare [id number] Private Health Insurance [id number] Unknown [id number] Unknown [id number] 2.16.840.1.421679.3.579.2.4 62 Unknown [id number] 2.16.840.1.922624.3.579.2.4 62 Unknown [id number] 2.16.840.1.506378.3.579.2.4 62 Unknown [id number] 2.16.840.1.018246.3.579.2.4 62 Unknown [id number] 2.16.840.1.693144.3.579.2.4 62 Unknown [id number] 2.16.840.1.710951.3.579.2.4 62 Unknown [id number] 2.16.840.1.907890.3.579.2.4 62 Unknown [id number] 2.16.840.1.605958.3.579.2.4 62 Unknown [id number] 2.16.840.1.251372.3.579.2.4 62 Unknown [id number] 2.16.840.1.990312.3.579.2.4 62 Unknown [id number] 2.16.840.1.407918.3.579.2.4 62 Unknown [id number] 2.16.840.1.971654.3.579.2.4 62 Unknown [id number] 2.16.840.1.845031.3.579.2.4 62 Unknown [id number] 2.16.840.1.337507.3.579.2.4 62 Unknown [id number] 2.16.840.1.438854.3.579.2.4 62 Unknown [id number] 2.16.840.1.662757.3.579.2.4 62 Unknown [id number] 2.16.840.1.585935.3.579.2.4 62 Unknown [id number] 2.16.840.1.278632.3.579.2.4 62 Unknown [id number] 2.16.840.1.970007.3.579.2.4 62 Unknown [id number] 2.16.840.1.095747.3.579.2.4 62 Unknown [id number] 2.16.840.1.802493.3.579.2.4 62 Unknown [id number] 2.16.840.1.537365.3.579.2.4 62 Unknown [id number] 2.16.840.1.805202.3.579.2.4 62 Unknown [id number] 2.16.840.1.856057.3.579.2.4 62 Unknown [id number] 2.16.840.1.530206.3.579.2.4 62 Unknown [id number] 2.16.840.1.838503.3.579.2.4 62 Unknown [id number] 2.16.840.1.391625.3.579.2.4 62 Unknown [id number] 2.16.840.1.019122.3.579.2.4 62 Unknown [id number] 2.16.840.1.088297.3.579.2.4 62 Social History Date Type Detail Facility Start: 01-28-2019 End: 09-02-2024 Ex-smoker (finding) [facility] Start: 1960 Sex Assigned At Female A [facility] Start: 01-02-1984 End: 01-01-2015 History of tobacco use Current smoker [facility] Start: 01-02-1984 End: 01-01-2015 History of tobacco use Cigarette Smoker [facility] Start: 02-08-2012 End: 11-20-2023 Cigarettes smoked current (pack per day) - Reported 1 [facility] Start: 02-08-2012 End: 09-02-2024 Tobacco use and exposure Smokeless tobacco non-user [facility] Start: 10-06-2021 End: 03-19-2025 Alcohol intake Current non-drinker of alcohol (finding) [facility] Start: 05-31-2020 End: 05-17-2022 History SDOH Alcohol Frequency 1 [facility] Start: 05-31-2020 History SDOH Alcohol Std Drinks 98 [facility] Start: 05-31-2020 History SDOH Social Connections Phone 5 [facility] Start: 05-31-2020 End: 05-17-2022 History SDOH Social Connections Get Together 2 [facility] Start: 05-31-2020 History SDOH Physica l Activity DPW 0 [facility] Start: 05-31-2020 History SDOH Financial 3 [facility] Start: 06-11-2019 Education 15 [facility] Start: 03-03-2019 End: 05-16-2022 Tobacco Comment ETS: Father in childhood home. Active smoker in current home. [facility] Start: 1960 Sex Assigned At Not on file C [facility] Start: 10-21-2021 End: 10-31-2021 Exposure to SARS-CoV-2 (event) Unable to assess [facility] Start: 01-09-2021 End: 06-26-2022 Exposure to SARS-CoV-2 (event) Not sure [facility] Start: 05-06-2022 End: 05-16-2022 Exposure to SARS-CoV-2 (event) Yes [facility] Work Phone: Start: 09-12-2022 End: 10-19-2023 Tobacco smoking status NHIS Unknown if ever smoked [facility] Start: 01-24-2020 None [facility] Start: 01-24-2020 With Family [facility] Start: 12-28-2015 Non-smoker [facility] Start: 05-31-2020 End: 11-20-2023 Social connection and isolation panel [facility] Do you belong to any clubs or organizations such as mandaen groups, unions, fraternal or athletic groups, or school groups? No [facility] Are you now , , , , never or living with a partner? [facility] How often to you hav e a drink containing alcohol? Never [facility] Start: 06-29-[address] inks containing alcohol do you have on a typical day? Patient refused [facility] How hard is it for y ou to pay for the very basics like food, housing, medical care, and heating Somewhat hard [facility] Do you feel stress - tense, restless, nervous, or anxious, or unable to sleep at night because your mind is troubled all the time - these days [OSQ] Very much [facility] (I/We) worried niko er (my/our) food would run out before (I/we) got money to buy more. Sometimes true [facility] Start: 10-13-2024 End: 10-30-2024 Sex Female (finding) [facility] NEGATED: Highlighted row [facility] NEGATED: Highlighted row Not [facility] Medical Equipment Procedure Code Equipment Code Equipment Original Text Equipment Identifier Dates FDA Start: 08-29-2021 FDA Start: 08-29-2021 FDA Start: 08-29-2021 Mesh Bio-A Synth etic 10x7cm Surgical Reinforcement Hernia Repair - [id number] Start: 05-07-2019 FDA Start: 08-29-2021 FDA Start: [...] Unknown 08/29/21 Unknown Unknown FDA Start: 08-29-2021 ([id number]) Metal-backed pat babita prosthesis ()[id number] FDA Start: 01-23-2023 ([id number]) Coated knee femu r prosthesis ()[id number] FDA Start: 01-23-2023 ([id number]) Coated knee tibi a prosthesis ()[id number] FDA Start: 01-23-2023 ([id number]) Tibial insert ()[id number] FDA Start: 01-23-[address] Plastic 8f Chronoflex Catheter With Kit - [id number] Start: 10-30-2024 Goals Date Patient Goal Desired Activity /State Functional Status Date Assessment Result Facility 09-03-2024 Functional status Ambulates;Bath room Privilege [facility] Work Phone: 01-24-2023 Functional status Chair [facility] Work Phone: 10-02-2021 Functional Status [facility]-08-2019 Are you deaf, or do you have serious difficulty hearing No 05/08/2019 5:36 PM EDAnyi Kelly, LÓPEZ No [facility] 05-08-2019 Are you blind, or do you have serious difficulty seeing, even when wearing glasses No 05/08/2019 5:36 PM Anyi Herrera, LÓPEZ No [facility] 05-08-2019 Do you have serious difficulty walking or climbing stairs No 05/08/2019 5:36 PM RODRIGOT Anyi Del Toro, LÓPEZ No [facility] 05-08-2019 Do you have difficul ty dressing or bathing No 05/08/2019 5:36 PM EDAnyi Kelly, LÓPEZ No [facility] 05-08-2019 Because of a physica l, mental, or emotional condition, do you have difficulty doing errands alone such as visiting a physician's office or shopping No 05/08/2019 5:36 PM Anyi Herrera RN No [facility] Mental Status Date Assessment Result Facility 03-02-2025 Cognitive function Level Of Cons ciousness Sedated [facility] Work Phone: 03-02-2025 Cognitive function Voice/Name [facility] Work Phone: 12-27-2024 Cognitive function Level Of Cons ciousness Awake;Alert;Appropriate;Fol lows Commands [facility] Work Phone: 10-24-2024 Cognitive function Level Of Cons ciousness Awake;Alert;Appropriate;Fol lows Commands [facility] Work Phone: 10-02-2024 Cognitive function Awake;Alert;Appropriat e [facility] Work Phone: 09-03-2024 Cognitive function Voice/Name [facility] Work Phone: 09-03-2024 Cognitive function Cooperative;Anxious [facility] Work Phone: 07-25-2023 Cognitive function Awake;Alert;Appropriat e [facility] Work Phone: 01-24-2023 Cognitive function Level Of Cons ciousness Awake;Alert;Appropriate;Fol lows Commands [facility] Work Phone: 01-23-2023 Cognitive function Appropriate;Cooperativ e [facility] Work Phone: 01-23-2023 Cognitive function Voice/Name [facility] Work Phone: 11-06-2022 Cognitive function Voice/Name [facility] Work Phone: 11-06-2022 Cognitive function Patient Nia spencer Person;Place;Time [facility] Work Phone: 05-08-2019 Because of a physica l, mental, or emotional condition, do you have serious difficulty concentrating, remembering, or making decisions No 05/08/2019 5:36 PM EDT Anyi Del Toro RN No [facility] Clinical Notes 11-21-2020 to 03-19-2025 Telephone Encounter - Janie Rice - 03/19/2025 2:05 PM EDTTelephone Encounter - Janie Rice - 03/19/2025 2:05 PM EDTTelephone Encounter - Janie Rice - 03/19/2025 11:50 AM EDT Note Date & Type Note Facility 03-19-2025 Telephone encount er Note Spoke with patient and scheduled Janie Rice [facility] 03-19-2025 Miscellaneous Notes Formattin g of this note might be different from the original. Spoke with patient and scheduled Janie Rice AVS 03/19 Labs today.-DONE CBC/CMP CT C/A/P then OV in about 6 months.-Verifying with Dr. Sabrina Rice documented in this encounter [facility] 03-19-2025 Telephone encount er Note AVS 03/19 Labs today.-DONE CBC/CMP CT C/A/P then OV in about 6 months.-Verifying with Dr. Sabrina Rice [facility] 03-19-2025 Note [facility] 03-19-2025 History of Presen t illness Narrative HPI: The patient is a 64-year-old female [...] OV 07/15/2025: Presented to the ED at [facility] on 09/02/2024 with complaint of perianal pain [...] to be a perianal mass. It extended senior care external to the anal verge and another [...] carcinoma in situ. See comment. COMMENT Immunohistochemistry ([id number]) for surrogate HPV marker (p16) will be [...] obtained. No polyps. Pathology demonstrated fragments of small intestinal mucosa from the terminal ileum and fragments of colonic mucosa with no pathologic diagnosis on random colon biopsies. No vaginal discharge or bleeding. Has not had Pap test in quite some time. Has not been sexually active in quite genie time. Describes a tender sensation in the right groin into the right mons pubis. Previous therapy: 1) Infusional 5-fluorouracil with mitomycin and concurrent radiation. Presents for ongoing oncologic management. Interim history: Sigmoidoscopy and biopsy first week of February. WILFREDO. Continued dysphagia. Post-prandial upper abdominal cramping and diarrhea. Also has occasional post-prandial nausea. Can get dry heaves. Changed to Compazine from Phenergan. Follows at Dr. Pitts's office. Scheduled for esophagram. PAST MEDICAL HISTORY Diagnosis Date Asthma (HCC) [...] perianal mass TOTAL KNEE REPLACEMENT Right 2021 cholecalciferol, Vitamin D3, (VITAMIN D3) 1,250 mcg (50,000 unit) cap capsule Take 1 capsule by mouth every other week. leflunomide (ARAVA) 20 mg tablet Take 1 tablet by mouth once daily. apixaban (ELIQUIS) 5 mg tab(s) Take 1 tablet by mouth two times a day. prochlorperazine (COMPAZINE) 10 mg tablet Take 1 tablet by mouth every 6 hours as needed. miconazole (MONISTAT 7) 2 % vaginal cream Use 1 applicator vaginally daily at bedtime. SSD 1 % cream APPLY TO AFFECTED AREA TWICE DAILY nystatin (MYCOSTATIN) powder APPLY TO AFFECTED AREA. lidocaine-prilocaine (EMLA) 2.5-2.5 % cream Apply to affected area as needed. Apply ample amount to port site 60 minutes prior to accessing. meclizine (ANTIVERT) 25 mg tab Take 25 mg by mouth three times a day as needed (for dizziness). furosemide (LASIX) 20 mg tablet Take 20 mg by mouth once daily. VITAMIN B-12 1,000 mcg tab DISSOLVE 1 TABLET BY MOUTH ONCE DAILY amLODIPine (NORVASC) 5 mg tablet Take 7.5 mg by mouth once daily. FLUoxetine (PROZAC) 20 mg capsule Take 3 capsules by mouth once daily. abatacept/maltose (ORENCIA, WITH MALTOSE, INTRAVENOUS) Inject intravenously. (Patient taking differently: Inject intravenously once every month.) albuterol HFA (VENTOLIN HFA) 90 mcg/actuation inhaler Inhale 2 Puffs as instructed every 4 hours as needed for wheezing/shortness of breath. buPROPion XL (WELLBUTRIN [...] persistent asthma with acute exacerbation and pneumonia predniSONE (DELTASONE) 5 mg tablet Take 1 tablet by mouth once daily. potassium chloride (K-TAB) 10 mEq tablet Take 1 tablet by mouth two times a day. xapnpcoijaKOHEC-uuwesj-ezcxdbr ne (BMX 1:1:1) 1:1:1 liqd Take 10 mL by mouth every 4 hours as needed. (Patient not taking: Reported on 03/18/2025) iv contrast (will be provided with radiology [...] in the CT contrast administration guidelines link. atorvastatin (LIPITOR) 80 mg tablet Take 80 mg by mouth once daily. (Patient taking differently: Take 80 mg by mouth once daily. On hold for 10 days) dybqpu-pyupuror-oaakncy (CREON 36) 36,000-114,000- 180,000 unit delayed release capsule Take 1-3 capsules by mouth with meals and at bedtime. With snacks also (Patient not taking: Reported on 02/18/2025) budesonide, enteric coated (ENTOCORT EC) 3 mg 24 hr capsule Take 2 capsules by mouth every afternoon. pantoprazole DR (PROTONIX) 40 mg tablet Take 40 mg by mouth once daily. (Patient not taking: Reported on 03/18/2025) dicyclomine (BENTYL) 20 mg tablet Take 10 mg by mouth three times a day. (Patient not taking: Reported on 03/18/2025) clopidogrel (PLAVIX) 75 mg tablet Take 75 mg by mouth once daily. ALLERGIES Allergen Reactions Cymbalta [Duloxetin* Intolerance Headaches [...] date: 01/02/1984 Quit date: 01/01/2015 Years since quittin.2 Smokeless tobacco: Never Tobacco comments: ETS: Father [...] Ischemic Heart Disease Father age 42 from [place] Hypertension Sister other (Other) Brother 18 MVA [...] Normal mood. PHYSICAL EXAM: Vitals: Blood pressure 130/80, pulse 77, temperature 36.5 C (97.7 F), temperature source Temporal, weight 78.5 kg (173 lb), last menstrual period 01/22/2010, SpO2 96%. Well-appearing and in no acute distress. EYES: Sclerae are anicteric bilaterally. CARDIOVASCULAR: Rhythm is regular. ABDOMEN: The abdomen is nondistended. Very tender in the epigastrium and right upper quadrant. SKIN: No jaundice. 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 - Reviewed MRI from 02/09/2025. - Recent surgical evaluation--WILFREDO. - Reviewed plan for surveillance imaging including CT of chest, pelvis every 6 months for the first 2 years then annually up to 5 years. Plan: -Lab work with CTs in about 6 months. - Continue follow-up with GI. -Gynecology referral for cervical cancer screening. (D50.0) Iron 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 blood loss Assessment: -Multifactorial iron deficiency anemia. History of Homer's lesion, Crohn's disease and bleeding from recently diagnosed tumor. -On a proton pump inhibitor which can impair oral absorption. Plan: -Recheck CBC today. -Iron sucrose as indicated. Portions of this documentation were copied and pasted from my previous office visit note dated 10/30/2024 in order to provide a cohesive continuity of the history. The note has been reviewed and edited and updated as necessary. I spent a total of 20 minutes on the date of the service which included preparing to see the patient, uxlo-fq-dlto patient care, completing clinical documentation, obtaining and/or reviewing separately obtained history, performing a medically appropriate examination, ordering medications, tests, or procedures, communicating with other HCPs (not separately reported), and communicating results to the patient/family/caregiver. Josh Bennett DO documented in this encounter [facility] 03-02-2025 Consult note Note Date/Time March 02, 2025 9:21am [facility] Medical Records Department [address] [place] [address] Pre-Anesthesia Evaluation 03/02/25916 MR#: [id number] Acct: [id number] Name: MARIMAR WANG Rep #:[id number] : 1960 64 From: Nikita Roberson PCP: Julio Arriaga NP-C Status:REG S DC Y Race: C Location: [place] [address] ASA Classification* ASA Classification ASA Classification: 2 Assessment & Plan Anesthesia* Anesthesia Assessment Anesthesia Assessment: Discussed sedation and/or anesthesia options, risks, benefits, and alternatives with patient/parents/legal guardian/POA. Questions invited. The patient/parents/legal guardian/POA seems to understand and agrees to proceedwith anesthesia plan. Reviewed the physical assessment, medical history, allergy history and patient home medications list prior to surgery/procedure/anesthetic and documented any changes. Performed airway and anesthesia risk assessments. Anesthesia Type Anesthesia Type: MAC History Source History Obtained from:: Patient and Chart Anesthesia Focused Assessment* Temperature: 97.4 F Pulse Rate: 74 Blood Pressure: 133/63 Respiratory Rate: 16 Pulse Ox: 95 Oxygen Delivery Method: Room Air Airway Assessment Mouth opens: >3 cm Mallampati Score: II Teeth Condition: Missing Neck Range of motion (ROM): Limited ROM Labs Anesthesia Preop lab: CBC WBC 2.6 K/mm3 (4.4-11.0) L 10/24/24 21:10/24/24 RBC 3.69 M/mm3 (4.2-5.4) L 10/24/24 21:10/24/24 Hgb 10.1 g/dL (12.0-15.0) L 10/24/24 21: 5 Hct 31.2 % (37-47) L 10/24/24 21:23 10/24/24 Plt Count 110 K/mm3 (150-450) L 10/24/24 21:23 10/24/24 CHEMISTRY Potassium 3.1 mmol/L (3.3-5.1) L 10/24/24 21:23 10/24/24 Sodium 137 mmol/L (133-145) 10/24/24 21:10/24/24 Magnesium 1.9 mg/dL (1.6-2.6) 01/11/23 15:05 01/11/23 BUN 8 mg/dL (4-19) 10/24/24 21:10/24/24 Creatinine 0.67 mg/dL (0.70-1.20) L 10/24/24 21: Glucose 85 mg/dL (70-99) 10/24/24 21:23 10/24/24 TSH 0.80 uIU/mL (0.358-3.74) 11/21/15 16:47 COAG PT 14.0 SECONDS (11.7-14.9) 01/11/23 15:06 Pre-Assessment Diagnosis/Proposed Procedure Planned Operative Procedure(s): FLEX SIGMOIDOSCOPY Anesthesia History 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 When Was Last Pacemaker Check QUESTION #4 FULL TEXT: You/Your Family Experience fever (hyperthermia) with Anesthesia Last Oral Intake Last Oral intake: Last Oral Intake NPO since 19:40 03/02/25 08:37 Meds taken in AM with sips of Yes 03/02/25 08:37 water? 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 Female Yes 02/24/25 14:24 HX of Motion Sickness Yes 02/24/25 14:24 HX of N/V After Surgery No 02/24/25 14:24 Non-Smoker Yes 02/24/25 14:24 Duration of Surgery greater No 02/24/25 14:24 than 60 minutes Number of Risk Factors 3 02/24/25 14:24 PONV Score Moderate Risk 02/24/25 14:24 Height & Weight Height & Weight: Anesthesia: Height & Weight Height 5 ft 2.5 in 03/02/25 08:37 Weight: 85.3 kg 03/02/25 08:37 Body Mass Index (BMI) 33.8 03/02/25 08:37 Respiratory Assessment Respiratory Assessment - 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: Respiratory Tract Infection Hx - 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 Hx Respiratory Tract Infection No 02/24/25 14:24 STOP Sleep Apnea STOP Sleep Apnea - 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: STOP Sleep Apnea - 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 Hx Hypertension Yes 02/24/25 14:24 Hx Sleep [...] 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 Tobacco Use Smoking Status Former smoker 02/27/25 17:52 Hx Tobacco Use No 02/24/25 14:24 Years Smoking Packs Smoked per Day Smoking Cessation Date was Yes - quit smoking within 15 02/24/25 14:24 within the last 15 years years Hx Smoking Cessation Date 12/27/13 02/27/25 17:52 Hx Smoking Cessation No 02/27/25 17:52 Counseling Hematologic Medial History Hematologic Hx - 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 Specify any problems Hx of Preganancy in last 3 No 02/24/25 14:24 Months Nurse Filling Out Transfusion EHSEMORA 02/24/25 14:24 & Questions: Date: 02/24/25 02/24/25 14:24 Time: 14:37 02/24/25 14:24 Patient unable to answer at this time (ie. 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 No 02/24/25 14:24 Gestational Age (in weeks): EDC: Hx Hx Para Hx Section SAB No 02/24/25 14:24 Active Medications Active Medications: Current Medications Generic Name Dose Route Start Last Admin Trade Name Freq PRN Reason Stop Dose Admin Lactated Ringer's 1,000 mls @ 15 mls/hr 03/02/25 08:30 03/02/25 08:49 IV 15 mls/hr .Q48H NICOLE Administration PFSH Medical History Cancer Walker as ambulation aid DVT (deep [...] Limb weakness Asthma Anemia Arthritis Home Medications ?Medication ?Instructions ?Recorded ?Last Taken ?Type albuterol sulfate 90 mcg/actuation 2 puff inhalation Q 4H PRN PRN 03/13/15 Unknown History aerosol inhaler Shortness Of Breath fluoxetine 20 mg capsule 60 mg PO QHS MENTAL HEALTH 0 12/13/15 09/01/24 History peg [id number]-[id number]-hzxilhsx 1 1 drp OP 4X/DAY DRY EY ES 11/13/17 03/19/24 History %-0.2 %-0.2 % eye drops (Dry Eye Relief) leflunomide 20 mg tablet (Arava) 20 mg PO QHS RA 03/2209/01/24 History amlodipine 5 mg tablet 7.5 mg PO QHS BP 08/15/22 06:30 History mometasone 50 mcg/actuation nasal 2 spray intranasal . QAM ALLERGIES 08/15/22 09/01/24 History spray mecobalamin (vitamin B12) 1,000 1,000 mcg sublingual Q HS SUPPLEMENT 12/06/22 09/01/24 History mcg disintegrating tablet,sublingual abatacept 50 mg/0.4 mL 50 mg subcut QMONTH RA 12/1702/18/25 History subcutaneous syringe (Orencia) acetaminophen 500 mg tablet 1,000 mg PO Q6H PRN fever or pain 11/15/23 09/01/24 History atorvastatin 80 mg tablet 80 mg PO QHS 11/15/23 History meclizine 25 mg tablet 25 mg PO DAILY PRN PRN dizzi ness 03/17/24 03/02/25 06:30 History bupropion HCl (smoking deter) 150 150 mg PO QHS 09/01/24 History mg tablet,12 hr sustained-release(smoking deterrent) apixaban 5 mg (74 tabs) tablets in 10 mg PO Q12H 10/24 Unknown History a dose pack (Eliquis DVT-PE Treat 30D Start) cholecalciferol (vitamin D3) 1,250 1,250 mcg PO Q14D 0 10/24/24 Unknown History mcg (50,000 unit) capsule furosemide 20 mg tablet 20 mg PO DAILY 10/24/24 Unkn own History alprazolam 1 mg tablet 1 mg PO TID 30 days #90 tabs 12/02/24 Unknown Rx dicyclomine 10 mg capsule 10 mg PO TID PRN for abdomin al 01/25/25 03/02/25 06:30 Rx pain #90 caps pantoprazole 40 mg tablet,delayed 40 mg PO DAILY #90 T ABLETS 01/25/25 03/02/25 06:30 Rx release diphenoxylate-atropine 2.5 1 tab PO TID PRN diarrhea # 90 tabs 02/02/25 Unknown Rx mg-0.025 mg tablet (Lomotil) promethazine 25 mg tablet 25 mg PO Q6H PRN PRN Nausea #30 02/02/25 Unknown Rx tabs tramadol 50 mg tablet 50 mg PO Q6H PRN PRN pain Unknown History oxycodone-acetaminophen 5 mg-325 1 tab PO Q6H PRN PRN pain 5 days 02/27/25 Unknown Rx mg tablet #20 TABLETS prednisone 20 mg tablet 60 mg (3 x 20 mg) PO DAILY # 15 02/27/25 Unknown Rx TABLETS Allergy/AdvReac Type Severity Reaction Status Date / Time doxycycline calcium (From Allergy Anaphylaxis Verified 02/27/25 17:20 Vibramycin) doxycycline hyclate (From Allergy Anaphylaxis Verified 02/27/25 17:20 Vibramycin) doxycycline monohydrate Allergy Anaphylaxis Verified 02/27/25 17:20 (From Vibramycin) NSAIDS (Non-Steroidal Allergy Anaphylaxis Verified 02/27/25 17:20 Anti-Inflamma duloxetine (From Cymbalta) AdvReac HEADACHE Verified 02/27/25 17:20 AND UPSET STOMACH hydrocodone bitartrate (From AdvReac STOMACH Verified 02/27/25 17:20 Vicodin) UPSET hydromorphone HCl (From AdvReac Vomiting Verified 02/27/25 17:20 Dilaudid) morphine AdvReac Vomiting Verified 02/27/25 17:20 Family History Mother Asthma Hypertension Kidney disease Father Asthma Myocardial infarction Daughter Asthma Diabetes Hypertension Sister Asthma Hypertension Surgical History History of left hip replacement History of total right knee replacement (TKR) S/P total knee arthroplasty Hx of esophagogastroduodenoscopy History of cardiac catheterization S/P repair of paraesophageal hernia History of Vanessa fundoplication H/O adenoidectomy History of tonsillectomy H/O hernia repair History of total left knee replacement Hx of section H/O shoulder surgery Social History household members: family housing: house Smoking Status: Former smoker quit date: 07/29/13 alcohol intake: never substance use type: does not use Review of Systems (Anesthesia) ROS Narrative System reviewed and no additional complaints, except as documented. 03/02/25920 <Electronically signed by Nikita Aguiar MD> Date _ Nikita Aguiar MD Cosigner Signature: Date CC: ~ Signed [facility] Work Phone: [phone] 625-163008-05-2025 Consult note [facility] Medical Records Department [address] [place] [address] Anesthesia Postop Eval I 03/02/25 1045 MR#: [id number] Acct: [id number] Name: MARIMAR WANG Rep #:[id number] : 1960 64 From: Quang NATHAN PCP: Julio Arriaga NP-Marga Status:REG S DC Y Race: C Location: [place] [address] Anesthesia: Postop Eval I Current Vital Signs Temperature: 97 F Pulse Rate: 78 Blood Pressure: 107/64 Respiratory Rate: 16 Pulse Ox: 96 Assessment Airway patent: Yes Spontaneous unlabored respirations: Yes nausea: No Vomiting: No Anesthesia Complication: No Fluid Hydration Crystalloid volume administer (ml): 300 Total IV fluid infused: 300 Progress Note Anesthesia document: Postop Eval 1 completed: Yes 03/02/25 1045 CAMP MANAGER> Date _ Quang Xiao CAMP MANAGER Cosigner Signature: Date CC: ~ Signed [facility]08-05-2025 Procedure note [facility] Medical Records Department [address] [place] [address] Flex Sigmoidoscopy Report MR#: [id number] Acct: [id number] Name: MARIMAR WANG Rep #:[id number] : 1960 64 From: Kenya Garcia MD PCP: [facility] Arriola Status:REG S DC Patient Name: Marimar Wang Procedure Date: 03/02/2025 10:02 AM Date of : 1960 Age: 64 Procedure: Flexible Sigmoidoscopy Indications: High risk colon cancer surveillance: Personal history of anal cancer Providers: Kenya Garcia MD Referring MD: Kenya Garcia MD Medicines: Monitored Anesthesia Care Patient Profile: Refer to note in patient chart for documentation of history and physical. Complications: No immediate complications. Estimated blood loss: Minimal. Procedure: Pre-Anesthesia Assessment: - Prior to the procedure, a History and Physical was performed, and patient medications and allergies were reviewed. The patient's tolerance of previous anesthesia was also reviewed. The risks and benefits of the procedure and the sedation options and risks were discussed with the patient. All questions were answered, and informed consent was obtained. Prior Anticoagulants: The patient has taken no anticoagulant or antiplatelet agents. ASA Grade Assessment: II - A patient with mild systemic disease. After reviewing the risks and benefits, the patient was deemed in satisfactory condition to undergo the procedure. After obtaining informed consent, the endoscope was passed under direct vision. Throughout the procedure, the patient's blood pressure, pulse, and oxygen saturations were monitored continuously. The was introduced through the anus and advanced to the rectosigmoid junction. The flexible sigmoidoscopy was accomplished without difficulty. The patient tolerated the procedure well. The quality of the bowel preparation was fair. Moderate Sedation: See the other procedure note for documentation of moderate sedation with intraservice time. Scope In: 10:27:27 AM Scope Out: 10:37:48 AM Total Procedure Duration Time 0 hours 10 minutes 21 seconds Findings: The digital rectal exam was normal. Pertinent negatives include no anal lesion or abnormality. The entire examined colon appeared normal. The anus at site of previous mass was biopsied with a cold forceps for histology. Verification of patient identification for the specimen was done by the nurse using the patient's name, date and medical record number. Estimated blood loss was minimal. Impression: - Preparation of the colon was fair. - The entire examined colon is normal. Biopsied. Procedure Code(s): --- Professional --- 16379, 52, Sigmoidoscopy, flexible; with biopsy, single or multiple Diagnosis Code(s): --- Professional --- Z85.048, Personal history of other malignant neoplasm of rectum, rectosigmoid junction, and anus CPT copyright 2021 [employer]. All rights reserved. The codes documented in this report are preliminary and upon junior web designer review may be revised to meet current compliance requirements. Kenya Garcia MD 03/02/2025 10:43:59 AM This report has been signed electronically. Number of Addenda: 0 Note Initiated On: 03/02/2025 10:02 AM 03/02/25 1044 Date _ Kenya Garcia MD Cosigner Signature: Date (if indicated) CC: [facility] Arriaga; Dr. Kenya Garcia MD ~ Date Dictated: 03/02/25 1002 Date Transcribed: Pumping Plant Operator: SHILPA Signed [facility]08-05-2025 Procedure note [facility] Medical Records Department [address] [place] [address] Provation Physician Letter MR#: [id number] Acct: [id number] Name: MARIMAR WANG Rep #:[id number] : 1960 64 From: Kenya Garcia MD PCP: [facility] Arriola Status:REG S DC 03/02/2025 [facility] Ar[facility]ola Re : Flexible Sigmoidoscopy procedure for Marimar Wang Dear Corina This procedure was performed on Sunday, March 02, 2025. My impressions and recommendations are as follows: Impressions : - Preparation of the colon was fair. - The entire examined colon is normal. Biopsied. Recommendations : My findings are described in the full procedure note, which is enclosed. If I can be of further assistance, please feel free to contact me at . Sincerely, Kenya Garcia MD 03/02/2025 10:43:59 AM This report has been signed electronically. 03/02/25 1044 Date _ Kenya Garcia MD Cosigner Signature: Date (if indicated) CC: [facility] Arriaga; Dr. Kenya Garcia MD ~ Date Dictated: 03/02/25 1002 Date Transcribed: Pumping Plant Operator: SHILPA Signed [facility]08-05-2025 History and physical note [facility] Medical Records Department [address] [facility] [place] [address] History & Physical Exam 03/02/25 1008 MR#: [id number] Acct: [id number] Name: MARIMAR WANG Rep #:[id number] : 1960 64 From: Kenya Garcia MD PCP: Julio Arriaga, AUTOMOTIVE SALES MANAGER-C Status:REG S DC Location: [address] HPI - General General Date of Admission: 03/02/25 Date of Service: 03/02/25 Chief Complaint: Flexible sigmoidoscopy HPI Narrative MARIMAR WANG, is a 64 F who presents for flex sig to evaluate area of 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 She denies any new issues or problems. She has recently undergone chemo and radiation with good results. Today is to biopsy for any residual disease [facility] Medical History Cancer Walker as ambulation aid DVT (deep [...] Limb weakness Asthma Anemia Arthritis Home Medications ?Medication ?Instructions ?Recorded ?Last Taken ?Type albuterol sulfate 90 mcg/actuation 2 puff inhalation Q 4H PRN PRN 03/13/15 Unknown History aerosol inhaler Shortness Of Breath fluoxetine 20 mg capsule 60 mg PO QHS MENTAL HEALTH 0 12/13/15 09/01/24 History peg [id number]-tarsvxva 1 1 drp OP 4X/DAY DRY EY ES 11/13/17 03/19/24 History %-0.2 %-0.2 % eye drops (Dry Eye Relief) leflunomide 20 mg tablet (Arava) 20 mg PO QHS RA 03/2209/01/24 History amlodipine 5 mg tablet 7.5 mg PO QHS BP 08/15/22 06:30 History mometasone 50 mcg/actuation nasal 2 spray intranasal . QAM ALLERGIES 08/15/22 09/01/24 History spray mecobalamin (vitamin B12) 1,000 1,000 mcg sublingual Q HS SUPPLEMENT 12/06/22 09/01/24 History mcg disintegrating tablet,sublingual abatacept 50 mg/0.4 mL 50 mg subcut QMONTH RA 12/1702/18/25 History subcutaneous syringe (Orencia) acetaminophen 500 mg tablet 1,000 mg PO Q6H PRN fever or pain 11/15/23 09/01/24 History atorvastatin 80 mg tablet 80 mg PO QHS 11/15/23 History meclizine 25 mg tablet 25 mg PO DAILY PRN PRN dizzi ness 03/17/24 03/02/25 06:30 History bupropion HCl (smoking deter) 150 150 mg PO QHS 09/01/24 History mg tablet,12 hr sustained-release(smoking deterrent) apixaban 5 mg (74 tabs) tablets in 10 mg PO Q12H 10/24 Unknown History a dose pack (Eliquis DVT-PE Treat 30D Start) cholecalciferol (vitamin D3) 1,250 1,250 mcg PO Q14D 0 10/24/24 Unknown History mcg (50,000 unit) capsule furosemide 20 mg tablet 20 mg PO DAILY 10/24/24 Unkn own History alprazolam 1 mg tablet 1 mg PO TID 30 days #90 tabs 12/02/24 Unknown Rx dicyclomine 10 mg capsule 10 mg PO TID PRN for abdomin al 01/25/25 03/02/25 06:30 Rx pain #90 caps pantoprazole 40 mg tablet,delayed 40 mg PO DAILY #90 T ABLETS 01/25/25 03/02/25 06:30 Rx release diphenoxylate-atropine 2.5 1 tab PO TID PRN diarrhea # 90 tabs 02/02/25 Unknown Rx mg-0.025 mg tablet (Lomotil) promethazine 25 mg tablet 25 mg PO Q6H PRN PRN Nausea #30 02/02/25 Unknown Rx tabs tramadol 50 mg tablet 50 mg PO Q6H PRN PRN pain Unknown History oxycodone-acetaminophen 5 mg-325 1 tab PO Q6H PRN PRN pain 5 days 02/27/25 Unknown Rx mg tablet #20 TABLETS prednisone 20 mg tablet 60 mg (3 x 20 mg) PO DAILY # 15 02/27/25 Unknown Rx TABLETS Allergy/AdvReac Type Severity Reaction Status Date / Time doxycycline calcium (From Allergy Anaphylaxis Verified 02/27/25 17:20 Vibramycin) doxycycline hyclate (From Allergy Anaphylaxis Verified 02/27/25 17:20 Vibramycin) doxycycline monohydrate Allergy Anaphylaxis Verified 02/27/25 17:20 (From Vibramycin) NSAIDS (Non-Steroidal Allergy Anaphylaxis Verified 02/27/25 17:20 Anti-Inflamma duloxetine (From Cymbalta) AdvReac HEADACHE Verified 02/27/25 17:20 AND UPSET STOMACH hydrocodone bitartrate (From AdvReac STOMACH Verified 02/27/25 17:20 Vicodin) UPSET hydromorphone HCl (From AdvReac Vomiting Verified 02/27/25 17:20 Dilaudid) morphine AdvReac Vomiting Verified 02/27/25 17:20 Family History Mother Asthma Hypertension Kidney disease Father Asthma Myocardial infarction Daughter Asthma Diabetes Hypertension Sister Asthma Hypertension Surgical History History of left hip replacement History of total right knee replacement (TKR) S/P total knee arthroplasty Hx of esophagogastroduodenoscopy History of cardiac catheterization S/P repair of paraesophageal hernia History of Vanessa fundoplication H/O adenoidectomy History of tonsillectomy H/O hernia repair History of total left knee replacement Hx of section H/O shoulder surgery Social History household members: family housing: house Smoking Status: Former smoker quit date: 07/29/13 alcohol intake: never substance use type: does not use Vital Signs Vital Signs Vital Signs: 03/02/25 08:37 03/02/25 08:37 03/02/25 09:19 Temperature 97.4 F L 97.4 F L Temperature Source Temporal Pulse Rate 74 74 Respiratory Rate 16 16 Respiratory Pattern Normal Blood Pressure 133/63 H 133/63 H Blood Pressure Mean 86 Blood Pressure Source Monitor Blood Pressure Position Semi-Fowlers Blood Pressure Location Left Arm Pulse Ox 95 95 Oxygen Delivery Method Room Air Room Air Weight Weight: 188 lb 0.869 oz Body Mass Index (BMI) 33.8 Physical Exam Const alert and oriented x3 Assessment & Plan Assessment/Plan (1) 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 She denies any new issues or problems. She has recently undergone chemo and radiation with good results. Today is to biopsy for any residual disease [facility] Medical History Cancer Walker as ambulation aid DVT (deep [...] QHS MENTAL HEALTH 6 09/01/24 History peg 506-zwbxyckiybiq-hvpljxnv 1 1 drp OP 4X/DAY DRY EYES 11/13/17 03/19/24 History %-0.2 %-0.2 % eye drops (Dry Eye Relief) leflunomide 20 mg tablet (Arava) 20 mg PO QHS RA 03/22/18 09/01/24 History amlodipine 5 mg tablet 7.5 mg PO QHS BP 08/15/22 03/02/25 06:30 History mometasone 50 mcg/actuation nasal 2 spray intranasal .QAM ALLERGIES 08/15/22 09/01/24 History spray mecobalamin (vitamin B12) 1,000 1,000 mcg sublingual QHS SUPPLEMEN T 12/06/22 09/01/24 History mcg disintegrating tablet,sublingual abatacept 50 mg/0.4 mL 50 mg subcut QMONTH RA 12/17/22 History subcutaneous syringe (Orencia) acetaminophen 500 mg tablet 1,000 mg PO Q6H PRN fever or pain 11/15/23 09/01/24 History atorvastatin 80 mg tablet 80 mg PO QHS 11/15/23 09/01/24 His tory meclizine 25 mg tablet 25 mg PO DAILY PRN PRN dizziness 0 03/17/24 03/02/25 06:30 History bupropion HCl (smoking deter) 150 150 mg PO QHS 09/02/24 09/01/24 H istory mg tablet,12 hr sustained-release(smoking deterrent) apixaban 5 mg (74 tabs) tablets in 10 mg PO Q12H 10/24/24 Unknown H istory a dose pack (Lekiosque.fr DVT-PE Treat 30D Start) cholecalciferol (vitamin D3) 1,250 1,250 mcg PO Q14D 10/24/24 Unkno wn History mcg (50,000 unit) capsule furosemide 20 mg tablet 20 mg PO DAILY 10/24/24 Unknown Hi story alprazolam 1 mg tablet 1 mg PO TID 30 days #90 tabs 12/02 Unknown Rx dicyclomine 10 mg capsule 10 mg PO TID PRN for abdominal 03/02/25 06:30 Rx pain #90 caps pantoprazole 40 mg tablet,delayed 40 mg PO DAILY #90 TABLETS 03/02/25 06:30 Rx release diphenoxylate-atropine 2.5 1 tab PO TID PRN diarrhea #90 tabs 02/02/25 Unknown Rx mg-0.025 mg tablet (Lomotil) promethazine 25 mg tablet 25 mg PO Q6H PRN PRN Nausea #30 Unknown Rx tabs tramadol 50 mg tablet 50 mg PO Q6H PRN PRN pain 02/24/25 Unknown History oxycodone-acetaminophen 5 mg-325 1 tab PO Q6H PRN PRN pain 5 days 0 02/27/25 Unknown Rx mg tablet #20 TABLETS prednisone 20 mg tablet 60 mg (3 x 20 mg) PO DAILY #15 09/22 Unknown Rx TABLETS Allergy (more content not included)...[facility]08-05-2025 Consult note [facility] Medical Records Department [address] [place] [address] Pre-Anesthesia Evaluation 03/02/25916 MR#: [id number] Acct: [id number] Name: MARIMAR WANG Rep #:[id number] : 1960 64 From: Nikita Roberson PCP: Julio Arriaga NP-C Status:REG S DC Y Race: C Location: [place] [address] ASA Classification* ASA Classification ASA Classification: 2 Assessment & Plan Anesthesia* Anesthesia Assessment Anesthesia Assessment: Discussed sedation and/or anesthesia options, risks, benefits, and alternatives with patient/parents/legal guardian/POA. Questions invited. The patient/parents/legal guardian/POA seems to understand and agrees to proceedwith anesthesia plan. Reviewed the physical assessment, medical history, allergy history and patient home medications list prior to surgery/procedure/anesthetic and documented any changes. Performed airway and anesthesia risk assessments. Anesthesia Type Anesthesia Type: MAC History Source History Obtained from:: Patient and Chart Anesthesia Focused Assessment* Temperature: 97.4 F Pulse Rate: 74 Blood Pressure: 133/63 Respiratory Rate: 16 Pulse Ox: 95 Oxygen Delivery Method: Room Air Airway Assessment Mouth opens: >3 cm Mallampati Score: II Teeth Condition: Missing Neck Range of motion (ROM): Limited ROM Labs Anesthesia Preop lab: CBC WBC 2.6 K/mm3 (4.4-11.0) L 10/24/24 21:10/24/24 RBC 3.69 M/mm3 (4.2-5.4) L 10/24/24 21:23 10/24/24 Hgb 10.1 g/dL (12.0-15.0) L 10/24/24 21: 5 Hct 31.2 % (37-47) L 10/24/24 21:10/24/24 Plt Count 110 K/mm3 (150-450) L 10/24/24 21:23 10/24/24 CHEMISTRY Potassium 3.1 mmol/L (3.3-5.1) L 10/24/24 21:23 10/24/24 Sodium 137 mmol/L (133-145) 10/24/24 21:23 10/24/24 Magnesium 1.9 mg/dL (1.6-2.6) 01/11/23 15:05 01/11/23 BUN 8 mg/dL (4-19) 10/24/24 21:23 10/24/24 Creatinine 0.67 mg/dL (0.70-1.20) L 10/24/24 21:23 Glucose 85 mg/dL (70-99) 10/24/24 21:23 10/24/24 TSH 0.80 uIU/mL (0.358-3.74) 11/21/15 16:47 COAG PT 14.0 SECONDS (11.7-14.9) 01/11/23 15:06 Pre-Assessment Diagnosis/Proposed Procedure Planned Operative Procedure(s): FLEX SIGMOIDOSCOPY Anesthesia History 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 When Was Last Pacemaker Check QUESTION #4 FULL TEXT: You/Your Family Experience fever (hyperthermia) with Anesthesia Last Oral Intake Last Oral intake: Last Oral Intake NPO since 19:40 03/02/25 08:37 Meds taken in AM with sips of Yes 03/02/25 08:37 water? 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 Female Yes 02/24/25 14:24 HX of Motion Sickness Yes 02/24/25 14:24 HX of N/V After Surgery No 02/24/25 14:24 Non-Smoker Yes 02/24/25 14:24 Duration of Surgery greater No 02/24/25 14:24 than 60 minutes Number of Risk Factors 3 02/24/25 14:24 PONV Score Moderate Risk 02/24/25 14:24 Height & Weight Height & Weight: Anesthesia: Height & Weight Height 5 ft 2.5 in 03/02/25 08:37 Weight: 85.3 kg 03/02/25 08:37 Body Mass Index (BMI) 33.8 03/02/25 08:37 Respiratory Assessment Respiratory Assessment - 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 Specify any problems Hx of Preganancy in last 3 No 02/24/25 14:24 Months Nurse Filling Out Transfusion EHSEMORA 02/24/25 14:24 & Questions: Date: 02/24/25 02/24/25 14:24 Time: 14:37 02/24/25 14:24 Patient unable to answer at this time (ie. 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 No 02/24/25 14:24 Gestational Age (in weeks): EDC: Hx Hx Para Hx Section SAB No 02/24/25 14:24 Active Medications Active Medications: Current Medications Generic Name Dose Route Start Last Admin Trade Name Freq PRN Reason Stop Dose Admin Lactated Ringer's 1,000 mls @ 15 mls/hr 03/02/25 08:30 03/02/25 08:49 IV 15 mls/hr .Q48H NICOLE Administration PFSH Medical History Cancer Walker as ambulation aid DVT (deep [...] Limb weakness Asthma Anemia Arthritis Home Medications ?Medication ?Instructions ?Recorded ?Last Taken ?Type albuterol sulfate 90 mcg/actuation 2 puff inhalation Q 4H PRN PRN 03/13/15 Unknown History aerosol inhaler Shortness Of Breath fluoxetine 20 mg capsule 60 mg PO QHS MENTAL HEALTH 0 12/13/15 09/01/24 History peg [id number]-pskiepja 1 1 drp OP 4X/DAY DRY EY ES 11/13/17 03/19/24 History %-0.2 %-0.2 % eye drops (Dry Eye Relief) leflunomide 20 mg tablet (Arava) 20 mg PO QHS RA 03/2209/01/24 History amlodipine 5 mg tablet 7.5 mg PO QHS BP 08/15/22 06:30 History mometasone 50 mcg/actuation nasal 2 spray intranasal . QAM ALLERGIES 08/15/22 09/01/24 History spray mecobalamin (vitamin B12) 1,000 1,000 mcg sublingual Q HS SUPPLEMENT 12/06/22 09/01/24 History mcg disintegrating tablet,sublingual abatacept 50 mg/0.4 mL 50 mg subcut QMONTH RA 12/1702/18/25 History subcutaneous syringe (Orencia) acetaminophen 500 mg tablet 1,000 mg PO Q6H PRN fever or pain 11/15/23 09/01/24 History atorvastatin 80 mg tablet 80 mg PO QHS 11/15/23 History meclizine 25 mg tablet 25 mg PO DAILY PRN PRN dizzi ness 03/17/24 03/02/25 06:30 History bupropion HCl (smoking deter) 150 150 mg PO QHS 09/01/24 History mg tablet,12 hr sustained-release(smoking deterrent) apixaban 5 mg (74 tabs) tablets in 10 mg PO Q12H 10/24 Unknown History a dose pack (Eliquis DVT-PE Treat 30D Start) cholecalciferol (vitamin D3) 1,250 1,250 mcg PO Q14D 0 10/24/24 Unknown History mcg (50,000 unit) capsule furosemide 20 mg tablet 20 mg PO DAILY 10/24/24 Unkn own History alprazolam 1 mg tablet 1 mg PO TID 30 days #90 tabs 12/02/24 Unknown Rx dicyclomine 10 mg capsule 10 mg PO TID PRN for abdomin al 01/25/25 03/02/25 06:30 Rx pain #90 caps pantoprazole 40 mg tablet,delayed 40 mg PO DAILY #90 T ABLETS 01/25/25 03/02/25 06:30 Rx release diphenoxylate-atropine 2.5 1 tab PO TID PRN diarrhea # 90 tabs 02/02/25 Unknown Rx mg-0.025 mg tablet (Lomotil) promethazine 25 mg tablet 25 mg PO Q6H PRN PRN Nausea #30 02/02/25 Unknown Rx tabs tramadol 50 mg tablet 50 mg PO Q6H PRN PRN pain Unknown History oxycodone-acetaminophen 5 mg-325 1 tab PO Q6H PRN PRN pain 5 days 02/27/25 Unknown Rx mg tablet #20 TABLETS prednisone 20 mg tablet 60 mg (3 x 20 mg) PO DAILY # 15 02/27/25 Unknown Rx TABLETS Allergy/AdvReac Type Severity Reaction Status Date / Time doxycycline calcium (From Allergy Anaphylaxis Verified 02/27/25 17:20 Vibramycin) doxycycline hyclate (From Allergy Anaphylaxis Verified 02/27/25 17:20 Vibramycin) doxycycline monohydrate Allergy Anaphylaxis Verified 02/27/25 17:20 (From Vibramycin) NSAIDS (Non-Steroidal Allergy Anaphylaxis Verified 02/27/25 17:20 Anti-Inflamma duloxetine (From Cymbalta) AdvReac HEADACHE Verified 02/27/25 17:20 AND UPSET STOMACH hydrocodone bitartrate (From AdvReac STOMACH Verified 02/27/25 17:20 Vicodin) UPSET hydromorphone HCl (From AdvReac Vomiting Verified 02/27/25 17:20 Dilaudid) morphine AdvReac Vomiting Verified 02/27/25 17:20 Family History Mother Asthma Hypertension Kidney disease Father Asthma Myocardial infarction Daughter Asthma Diabetes Hypertension Sister Asthma Hypertension Surgical History History of left hip replacement History of total right knee replacement (TKR) S/P total knee arthroplasty Hx of esophagogastroduodenoscopy History of cardiac catheterization S/P repair of paraesophageal hernia History of Vanessa fundoplication H/O adenoidectomy History of tonsillectomy H/O hernia repair History of total left knee replacement Hx of section H/O shoulder surgery Social History household members: family housing: house Smoking Status: Former smoker quit date: 07/29/13 alcohol intake: never substance use type: does not use Review of Systems (Anesthesia) ROS Narrative System reviewed and no additional complaints, except as documented. 03/02/25 0921 > Date _ Nikita Aguiar MD Cosigner Signature: Date CC: ~ Signed [facility]08-02-2025 Discharge summary [facility] Medical Records Department [address] [place] [address] Emergency Department Summary 02/27/25 MR#: [id number] Acct: [id number] Name: MARIMAR WANG Rep #:[id number] : 1960 64 From: Pawel Cason MD PCP: Julio Arriaga NP-C Status:REG E R Location: ED HPI History of Present Illness Chief Complaint: Lower Extremity Injury Detail of Chief Complaint: Pain left buttocks area Informant: patient Onset/Context/Timing Onset: Weeks Context: Gradual Onset Timing: Continuous Quality: Pain Location: Left SI region Current Severity: Mild Maximum Severity: Severe Worsened by: Pressure, certain movements Relieved by: Nothing Associated Symptoms Associated Symptoms: None Narrative Narrative: Patient is a 64-year-old woman. She had images of her left hip pelvis October of this year. 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 The films were reviewed. There is inflammation. She had a CT of the pelvis which revealed no acute abnormality. I believe there is some inflammation of the SI joint on the left as well. Patient denies dysuria, frequency, urgency or hematuria. Patient denies change in caliber, color or consistency of her stool. Patient denies vaginal symptoms. There isno history of trauma. She has not noted a rash or bruising. She is on no anticoagulant. She is presently taking 2 tramadol tablets every 8 hours without any improvement. She denies radicular pain. Denies foot drop. Buckling of her knees. She denies any recent orthopedic procedure or dental procedure. Prior similar symptoms: Yes Recent Illness/Hospitalization: No PFSH PFSH Medical History Cancer Walker as ambulation aid DVT (deep [...] Limb weakness Asthma Anemia Arthritis Home Medications ?Medication ?Instructions ?Recorded ?Last Taken ?Type albuterol sulfate 90 mcg/actuation 2 puff inhalation Q 4H PRN PRN 03/13/15 Unknown History aerosol inhaler Shortness Of Breath fluoxetine 20 mg capsule 60 mg PO QHS MENTAL HEALTH 0 12/13/15 09/01/24 History peg [id number] 1 1 drp OP 4X/DAY DRY EY ES 11/13/17 03/19/24 History %-0.2 %-0.2 % eye drops (Dry Eye Relief) leflunomide 20 mg tablet (Arava) 20 mg PO QHS RA 03/2209/01/24 History amlodipine 5 mg tablet 7.5 mg PO QHS BP 08/15/22 History mometasone 50 mcg/actuation nasal 2 spray intranasal . QAM ALLERGIES 08/15/22 09/01/24 History spray mecobalamin (vitamin B12) 1,000 1,000 mcg sublingual Q HS SUPPLEMENT 12/06/22 09/01/24 History mcg disintegrating tablet,sublingual abatacept 50 mg/0.4 mL 50 mg subcut QMONTH RA 12/1702/18/25 History subcutaneous syringe (Orencia) acetaminophen 500 mg tablet 1,000 mg PO Q6H PRN fever or pain 11/15/23 09/01/24 History atorvastatin 80 mg tablet 80 mg PO QHS 11/15/23 History meclizine 25 mg tablet 25 mg PO DAILY PRN PRN dizzi ness 03/17/24 Unknown History bupropion HCl (smoking deter) 150 150 mg PO QHS 09/01/24 History mg tablet,12 hr sustained-release(smoking deterrent) apixaban 5 mg (74 tabs) tablets in 10 mg PO Q12H 10/24 Unknown History a dose pack (Lekiosque.fr DVT-PE Treat 30D Start) cholecalciferol (vitamin D3) 1,250 1,250 mcg PO Q14D 0 10/24/24 Unknown History mcg (50,000 unit) capsule furosemide 20 mg tablet 20 mg PO DAILY 10/24/24 Unkn own History alprazolam 1 mg tablet 1 mg PO TID 30 days #90 tabs 12/02/24 Unknown Rx dicyclomine 10 mg capsule 10 mg PO TID PRN for abdomin al 01/25/25 Unknown Rx pain #90 caps pantoprazole 40 mg tablet,delayed 40 mg PO DAILY #90 T ABLETS 01/25/25 Unknown Rx release diphenoxylate-atropine 2.5 1 tab PO TID PRN diarrhea # 90 tabs 02/02/25 Unknown Rx mg-0.025 mg tablet (Lomotil) promethazine 25 mg tablet 25 mg PO Q6H PRN PRN Nausea #30 02/02/25 Unknown Rx tabs tramadol 50 mg tablet 50 mg PO Q6H PRN PRN pain Unknown History oxycodone-acetaminophen 5 mg-325 1 tab PO Q6H PRN PRN pain 5 days 02/27/25 Unkno wn Rx mg tablet #20 TABLETS prednisone 20 mg tablet 60 mg (3 x 20 mg) PO DAILY # 15 02/27/25 Unknown Rx TABLETS Allergy/AdvReac Type Severity Reaction Status Date / Time doxycycline calcium (From Allergy Anaphylaxis Verified 02/27/25 17:20 Vibramycin) doxycycline hyclate (From Allergy Anaphylaxis Verified 02/27/25 17:20 Vibramycin) doxycycline monohydrate Allergy Anaphylaxis Verified 02/27/25 17:20 (From Vibramycin) NSAIDS (Non-Steroidal Allergy Anaphylaxis Verified 02/27/25 17:20 Anti-Inflamma duloxetine (From Cymbalta) AdvReac HEADACHE Verified 02/27/25 17:20 AND UPSET STOMACH hydrocodone bitartrate (From AdvReac STOMACH Verified 02/27/25 17:20 Vicodin) UPSET hydromorphone HCl (From AdvReac Vomiting Verified 02/27/25 17:20 Dilaudid) morphine AdvReac Vomiting Verified 02/27/25 17:20 Family History Mother Asthma Hypertension Kidney disease Father Asthma Myocardial infarction Daughter Asthma Diabetes Hypertension Sister Asthma Hypertension Surgical History History of left hip replacement History of total right knee replacement (TKR) S/P total knee arthroplasty Hx of esophagogastroduodenoscopy History of cardiac catheterization S/P repair of paraesophageal hernia History of Vanessa fundoplication H/O adenoidectomy History of tonsillectomy H/O hernia repair History of total left knee replacement Hx of section H/O shoulder surgery Social History household members: family housing: house Smoking Status: Former smoker quit date: 07/29/13 alcohol intake: never substance use type: does not use ROS ROS ED Constitutional Constitutional ED: Denies chills, fever(s), subjective, sweats or weight loss Gastrointestinal Gastrointestinal: Denies abdominal pain, constipation, diarrhea, melena, nausea or vomiting Genitourinary Genitourinary ED: Denies dysuria, hematuria or urinary frequency Musculoskeletal Musculoskeletal: Reports other Details: Left buttocks area over the SI joint region. ; Denies arthralgias, back pain, myalgias or neck pain Integumentary Denies rash Neurologic Neurologic: Denies headache(s) or paresthesias Psychiatric Psychiatric: Denies anxiety or depression Hematologic/Lymphatic Hematologic/Lymphatic: Reports systems reviewed and no addt'l complaints, exceptas documented EXAM Physical Exam Const Vital Signs: 02/27/25 17:19 Temperature 97.4 F L Temperature Source Temporal Pulse Rate 76 Respiratory Rate 18 Blood Pressure 133/50 H Blood Pressure Mean 77 Pulse Ox 97 Oxygen Delivery Method Room Air Positive well nourished and well developed Constitutional Narrative: BMI is 33.1. General Appearance ED: well developed; Negative for cyanotic, diaphoretic, NAD or pallor HEENT Reports moist mucous membranes HEENT Narrative: Head is atraumatic normocephalic. Ears normal. Eyes PERRL and EOMs intact bilaterally General Eye ED: Negative for pale conjunctiva or scleral icterus Resp normal respiratory effort Cardio regular rate and regular rhythm GI normal to inspection, nondistended, normoactive bowel sounds, non-tender and non-distended; Negative for hepatosplenomegaly Back/Spine no CVA tenderness Thoracic Spine / Upper Back: Negative for thoracic spinal tenderness Lumbar Spine / Lower Back: Negative for lumbar spinal tenderness Extremity normal to inspection Extremity Narrative: Frank Danelle 4 test causes pain over the SI joints. There is no pain ovation over the left greatertrochanteric region, ischial tuberosity. There is pain ovation in the proximity of the SI joint on the left. There is no midline tenderness over the lumbar vertebrae or sacrum coccyx region midline. Neuro oriented x3 and CN's II-XII intact bilaterally Sensorium / Orientation: alert Motor Exam: strength 5/5 throughout Psych Mood & Affect: anxious Skin no rashes or lesions noted, no wounds and skin turgor normal General Skin Exam: Negative for jaundice or pallor MDM MDM MDM Narrative Medical decision making narrative: Since patient had images and advanced imaging of the pelvic area and reveals degenerative changes of the SI joint will medicate with opiate analgesic. NSAIDs are contraindicated since she has anaphylactic reaction. She also was treated with steroids. Will reassess in 30 to 60 minutes. There is no concern at this time for an infection. History & Record Review Additional record(s) reviewed:: Prior outpatient record (Images obtained October and December of this year.) and Prior ED visit (The CT was performed when she was int ED on December 27, 2024. She was discharged to home. It was felt that her pain was due to chronic left sacral buttocks pain. She was prescribed Luther at that time.) Treatment and Re-Evaluation :: Patient was reassessed at 1931. She feels better. She is discharged to home with prescription for Percocet and prednisone. She was instructed to discontinue the tramadol. Discharge Plan Triage Chief Complaint: Lower Extremity Injury ED Provider: Pawel Cason Dx/Rx/DC Orders Clinical Impression: Chronic left SI joint pain, Elevated blood-pressure reading without diagnosis of hypertension Instructions: Osteoarthritis: Common Sites, ED Chronic Pain Prescriptions: New oxycodone-acetaminophen 5-325 mg tablet 1 tab PO Q6H PRN PRN (Reason: pain) 5 Days Qty: 20 0RF prednisone 20 mg tablet 60 mg PO DAILY Qty: 15 0RF No Action mometasone 50 mcg/actuation spray,non-aerosol 2 spray intranasal .QAM Rx Instructions: administer into each nostril amlodipine 5 mg tablet 7.5 mg PO QHS mecobalamin (vitamin B12) 1,000 mcg tablet,disintegrating 1,000 mcg sublingual QHS Rx Instructions: place tablet under tongue and allow to dissolve for at least30 secs before swallowing Orencia 50 mg/0.4 mL syringe 50 mg subcut QMONTH acetaminophen 500 mg tablet 1,000 mg PO Q6H PRN (Reason: fever or pain) atorvastatin 80 mg tablet 80 mg PO QHS diphenoxylate-atropine [Lomotil] 2.5-0.025 mg tablet 1 tab PO TID PRN (Reason: diarrhea) Qty: 90 0RF promethazine 25 mg tablet 25 mg PO Q6H PRN PRN (Reason: Nausea) Qty: 30 1RF albuterol sulfate 1 INHALER inhaler 2 puff INHALATION Q4H PRN PRN (Reason: Shortness Of Breath) Patient Comments: BREATING fluoxetine 20 MG capsule 60 mg PO QHS Patient Comments: ANXIETY Dry Eye Relief 15 ML drops 1 drp OP 4X/DAY leflunomide [Arava] 20 tablet 20 mg PO QHS Patient Comments: meclizine 25 mg tablet 25 mg PO DAILY PRN PRN (Reason: dizziness) bupropion HCl (smoking deter) 150 mg tablet extended release 12 hr 150 mg PO QHS tramadol 50 mg tablet 50 mg PO Q6H PRN PRN (Reason: pain) Marielle DVT-PE Treat 30D Start 5 mg (74 tabs) tablets,dose pack 10 mg PO Q12H Patient Comments: LAST DOSE WILL BE 02/27 cholecalciferol (vitamin D3) 1,250 mcg (50,000 unit) capsule 1,250 mcg PO Q14D furosemide 20 mg tablet 20 mg PO DAILY alprazolam 1 mg tablet 1 mg PO TID 30 Days Qty: 90 2RF dicyclomine 10 mg capsule 10 mg PO TID PRN (Reason: for abdominal pain) Qty: 90 3RF pantoprazole 40 mg tablet,delayed release (DR/EC) 40 mg PO DAILY Qty: 90 3RF Primary Care Provider: Julio Arriaga NP Referrals: Julio Arriaga NP, [employer] [Primary Care Provider] - 3-5 Days if not improving Activity Restrictions/Additional Instructions: 1. Stop taking the tramadol while you are on Percocet. 2. If you develop fever or chills or pain is unbearable follow-up with your doctor or return to theemergency department Print Language: Faroese Disposition Disposition: Home, Self Care What to do if you have Problems For any increased pain, shortness of breath, bleeding, nausea or vomiting, chestpain, or any unexpected problems, contact your Primary Care Provider. Call [facility] ([phone]) or report tothe closest Emergency Room. Call 911 if necessary. 02/27/251939 Cosigner Signature (if applicable): CC: STEFANOC Julio Arriaga ~ Signed [facility]08-02-2025 Discharge summary Author Pawel Cason [facility] Note Date/Time February 27, 2025 7:4 0pm [facility] Medical Records Department [address] [place] [address] Emergency Department Summary 02/27/25 MR#: [id number] Acct: [id number] Name: MARIMAR WANG Rep #:[id number] : 1960 64 From: Pawel Cason MD PCP: [facility] Arriola Status:REG E R Location: ED HPI History of Present Illness Chief Complaint: Lower Extremity Injury Detail of Chief Complaint: Pain left buttocks area Informant: patient Onset/Context/Timing Onset: Weeks Context: Gradual Onset Timing: Continuous Quality: Pain Location: Left SI region Current Severity: Mild Maximum Severity: Severe Worsened by: Pressure, certain movements Relieved by: Nothing Associated Symptoms Associated Symptoms: None Narrative Narrative: Patient is a 64-year-old woman. She had images of her left hip pelvis October of this year. 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 The films were reviewed. There is inflammation. She had a CT of the pelvis which revealed no acute abnormality. I believe there is some inflammation of the SI joint on the left as well. Patient denies dysuria, frequency, urgency or hematuria. Patient denies change in caliber, color or consistency of her stool. Patient denies vaginal symptoms. There is no history of trauma. She has not noted a rash or bruising. She is on no anticoagulant. She is presently taking 2 tramadol tablets every 8 hours without any improvement. She denies radicular pain. Denies foot drop. Buckling of her knees. She denies any recent orthopedic procedure or dental procedure. Prior similar symptoms: Yes Recent Illness/Hospitalization: No PFSH PFS Medical History Cancer Walker as ambulation aid DVT (deep [...] Limb weakness Asthma Anemia Arthritis Home Medications ?Medication ?Instructions ?Recorded ?Last Taken ?Type albuterol sulfate 90 mcg/actuation 2 puff inhalation Q 4H PRN PRN 03/13/15 Unknown History aerosol inhaler Shortness Of Breath fluoxetine 20 mg capsule 60 mg PO QHS MENTAL HEALTH 0 12/13/15 09/01/24 History peg [id number] 1 1 drp OP 4X/DAY DRY EY ES 11/13/17 03/19/24 History %-0.2 %-0.2 % eye drops (Dry Eye Relief) leflunomide 20 mg tablet (Arava) 20 mg PO QHS RA 03/2209/01/24 History amlodipine 5 mg tablet 7.5 mg PO QHS BP 08/15/22 History mometasone 50 mcg/actuation nasal 2 spray intranasal . QAM ALLERGIES 08/15/22 09/01/24 History spray mecobalamin (vitamin B12) 1,000 1,000 mcg sublingual Q HS SUPPLEMENT 12/06/22 09/01/24 History mcg disintegrating tablet,sublingual abatacept 50 mg/0.4 mL 50 mg subcut QMONTH RA 12/1702/18/25 History subcutaneous syringe (Orencia) acetaminophen 500 mg tablet 1,000 mg PO Q6H PRN fever or pain 11/15/23 09/01/24 History atorvastatin 80 mg tablet 80 mg PO QHS 11/15/23 History meclizine 25 mg tablet 25 mg PO DAILY PRN PRN dizzi ness 03/17/24 Unknown History bupropion HCl (smoking deter) 150 150 mg PO QHS 09/01/24 History mg tablet,12 hr sustained-release(smoking deterrent) apixaban 5 mg (74 tabs) tablets in 10 mg PO Q12H 10/24 Unknown History a dose pack (Eliquis DVT-PE Treat 30D Start) cholecalciferol (vitamin D3) 1,250 1,250 mcg PO Q14D 0 10/24/24 Unknown History mcg (50,000 unit) capsule furosemide 20 mg tablet 20 mg PO DAILY 10/24/24 Unkn own History alprazolam 1 mg tablet 1 mg PO TID 30 days #90 tabs 12/02/24 Unknown Rx dicyclomine 10 mg capsule 10 mg PO TID PRN for abdomin al 01/25/25 Unknown Rx pain #90 caps pantoprazole 40 mg tablet,delayed 40 mg PO DAILY #90 T ABLETS 01/25/25 Unknown Rx release diphenoxylate-atropine 2.5 1 tab PO TID PRN diarrhea # 90 tabs 02/02/25 Unknown Rx mg-0.025 mg tablet (Lomotil) promethazine 25 mg tablet 25 mg PO Q6H PRN PRN Nausea #30 02/02/25 Unknown Rx tabs tramadol 50 mg tablet 50 mg PO Q6H PRN PRN pain Unknown History oxycodone-acetaminophen 5 mg-325 1 tab PO Q6H PRN PRN pain 5 days 02/27/25 Unkno wn Rx mg tablet #20 TABLETS prednisone 20 mg tablet 60 mg (3 x 20 mg) PO DAILY # 15 02/27/25 Unknown Rx TABLETS Allergy/AdvReac Type Severity Reaction Status Date / Time doxycycline calcium (From Allergy Anaphylaxis Verified 02/27/25 17:20 Vibramycin) doxycycline hyclate (From Allergy Anaphylaxis Verified 02/27/25 17:20 Vibramycin) doxycycline monohydrate Allergy Anaphylaxis Verified 02/27/25 17:20 (From Vibramycin) NSAIDS (Non-Steroidal Allergy Anaphylaxis Verified 02/27/25 17:20 Anti-Inflamma duloxetine (From Cymbalta) AdvReac HEADACHE Verified 02/27/25 17:20 AND UPSET STOMACH hydrocodone bitartrate (From AdvReac STOMACH Verified 02/27/25 17:20 Vicodin) UPSET hydromorphone HCl (From AdvReac Vomiting Verified 02/27/25 17:20 Dilaudid) morphine AdvReac Vomiting Verified 02/27/25 17:20 Family History Mother Asthma Hypertension Kidney disease Father Asthma Myocardial infarction Daughter Asthma Diabetes Hypertension Sister Asthma Hypertension Surgical History History of left hip replacement History of total right knee replacement (TKR) S/P total knee arthroplasty Hx of esophagogastroduodenoscopy History of cardiac catheterization S/P repair of paraesophageal hernia History of Vanessa fundoplication H/O adenoidectomy History of tonsillectomy H/O hernia repair History of total left knee replacement Hx of section H/O shoulder surgery Social History household members: family housing: house Smoking Status: Former smoker quit date: 07/29/13 alcohol intake: never substance use type: does not use ROS ROS ED Constitutional Constitutional ED: Denies chills, fever(s), subjective, sweats or weight loss Gastrointestinal Gastrointestinal: Denies abdominal pain, constipation, diarrhea, melena, nausea or vomiting Genitourinary Genitourinary ED: Denies dysuria, hematuria or urinary frequency Musculoskeletal Musculoskeletal: Reports other Details: Left buttocks area over the SI joint region. ; Denies arthralgias, back pain, myalgias or neck pain Integumentary Denies rash Neurologic Neurologic: Denies headache(s) or paresthesias Psychiatric Psychiatric: Denies anxiety or depression Hematologic/Lymphatic Hematologic/Lymphatic: Reports systems reviewed and no addt'l complaints, exceptas documented EXAM Physical Exam Const Vital Signs: 02/27/25 17:19 Temperature 97.4 F L Temperature Source Temporal Pulse Rate 76 Respiratory Rate 18 Blood Pressure 133/50 H Blood Pressure Mean 77 Pulse Ox 97 Oxygen Delivery Method Room Air Positive well nourished and well developed Constitutional Narrative: BMI is 33.1. General Appearance ED: well developed; Negative for cyanotic, diaphoretic, NAD or pallor HEENT Reports moist mucous membranes HEENT Narrative: Head is atraumatic normocephalic. Ears normal. Eyes PERRL and EOMs intact bilaterally General Eye ED: Negative for pale conjunctiva or scleral icterus Resp normal respiratory effort Cardio regular rate and regular rhythm GI normal to inspection, nondistended, normoactive bowel sounds, non-tender and non-distended; Negative for hepatosplenomegaly Back/Spine no CVA tenderness Thoracic Spine / Upper Back: Negative for thoracic spinal tenderness Lumbar Spine / Lower Back: Negative for lumbar spinal tenderness Extremity normal to inspection Extremity Narrative: Frank Danelle 4 test causes pain over the SI joints. There is no pain ovation over the left greater trochanteric region, ischial tuberosity. There is pain ovation in the proximity of the SI joint on the left. There is no midline tenderness over the lumbar vertebrae or sacrum coccyx region midline. Neuro oriented x3 and CN's II-XII intact bilaterally Sensorium / Orientation: alert Motor Exam: strength 5/5 throughout Psych Mood & Affect: anxious Skin no rashes or lesions noted, no wounds and skin turgor normal General Skin Exam: Negative for jaundice or pallor MDM MDM MDM Narrative Medical decision making narrative: Since patient had images and advanced imaging of the pelvic area and reveals degenerative changes of the SI joint will medicate with opiate analgesic. NSAIDs are contraindicated since she has anaphylactic reaction. She also was treated with steroids. Will reassess in 30 to 60 minutes. There is no concern at this time for an infection. History & Record Review Additional record(s) reviewed:: Prior outpatient record (Images obtained October and December of this year.) and Prior ED visit (The CT was performed when she was int ED on December 27, 2024. She was discharged to home. It was felt that her pain was due to chronic left sacral buttocks pain. She was prescribed Luther at that time.) Treatment and Re-Evaluation :: Patient was reassessed at 1931. She feels better. She is discharged to home with prescription for Percocet and prednisone. She was instructed to discontinue the tramadol. Discharge Plan Triage Chief Complaint: Lower Extremity Injury ED Provider: Pawel Cason Dx/Rx/DC Orders Clinical Impression: Chronic left SI joint pain, Elevated blood-pressure reading without diagnosis of hypertension Instructions: Osteoarthritis: Common Sites, ED Chronic Pain Prescriptions: New oxycodone-acetaminophen 5-325 mg tablet 1 tab PO Q6H PRN PRN (Reason: pain) 5 Days Qty: 20 0RF prednisone 20 mg tablet 60 mg PO DAILY Qty: 15 0RF No Action mometasone 50 mcg/actuation spray,non-aerosol 2 spray intranasal .QAM Rx Instructions: administer into each nostril amlodipine 5 mg tablet 7.5 mg PO QHS mecobalamin (vitamin B12) 1,000 mcg tablet,disintegrating 1,000 mcg sublingual QHS Rx Instructions: place tablet under tongue and allow to dissolve for at least30 secs before swallowing Orencia 50 mg/0.4 mL syringe 50 mg subcut QMONTH acetaminophen 500 mg tablet 1,000 mg PO Q6H PRN (Reason: fever or pain) atorvastatin 80 mg tablet 80 mg PO QHS diphenoxylate-atropine [Lomotil] 2.5-0.025 mg tablet 1 tab PO TID PRN (Reason: diarrhea) Qty: 90 0RF promethazine 25 mg tablet 25 mg PO Q6H PRN PRN (Reason: Nausea) Qty: 30 1RF albuterol sulfate 1 INHALER inhaler 2 puff INHALATION Q4H PRN PRN (Reason: Shortness Of Breath) Patient Comments: BREATING fluoxetine 20 MG capsule 60 mg PO QHS Patient Comments: ANXIETY Dry Eye Relief 15 ML drops 1 drp OP 4X/DAY leflunomide [Arava] 20 tablet 20 mg PO QHS Patient Comments: meclizine 25 mg tablet 25 mg PO DAILY PRN PRN (Reason: dizziness) bupropion HCl (smoking deter) 150 mg tablet extended release 12 hr 150 mg PO QHS tramadol 50 mg tablet 50 mg PO Q6H PRN PRN (Reason: pain) Eliquis DVT-PE Treat 30D Start 5 mg (74 tabs) tablets,dose pack 10 mg PO Q12H Patient Comments: LAST DOSE WILL BE 02/27 cholecalciferol (vitamin D3) 1,250 mcg (50,000 unit) capsule 1,250 mcg PO Q14D furosemide 20 mg tablet 20 mg PO DAILY alprazolam 1 mg tablet 1 mg PO TID 30 Days Qty: 90 2RF dicyclomine 10 mg capsule 10 mg PO TID PRN (Reason: for abdominal pain) Qty: 90 3RF pantoprazole 40 mg tablet,delayed release (DR/EC) 40 mg PO DAILY Qty: 90 3RF Primary Care Provider: Julio Arriaga NP Referrals: Julio Arriaga NP, AUTOMOTIVE SALES MANAGER-C [Primary Care Provider] - 3-5 Days if not improving Activity Restrictions/Additional Instructions: 1. Stop taking the tramadol while you are on Percocet. 2. If you develop fever or chills or pain is unbearable follow-up with your doctor or return to the emergency department Print Language: Faroese Disposition Disposition: Home, Self Care What to do if you have Problems For any increased pain, shortness of breath, bleeding, nausea or vomiting, chestpain, or any unexpected problems, contact your Primary Care Provider. Call [facility] ([phone]) or report to the closest Emergency Room. Call 911 if necessary. 02/27/251939 <Electronically signed by Pawel Cason MD> Cosigner Signature (if applicable): CC: [facility] Ar[facility]aga ~ Signed [facility] Work Phone: 1(383) 134-860407-23-2025 Telephone encounter Note* Telephone Encounter - Lawanda Rutherford RN - 02/17/2025 2:17 PM EDT Nurse spoke to pt and requested she come in sooner if possible. Pt stated she will be here around 1. [facility]07-23-2025 Miscellaneous Notes* Telephone Encounter - Lawanda Rutherford RN - 02/17/2025 2:17 PM EDT Nurse spoke to pt and requested she come in sooner if possible. Pt stated she will be here around 1. * Telephone Encounter - Yvette Cheng - 02/17/2025 11:26 AM EDT This has been scheduled as directed. Yvette Cheng * Telephone Encounter - Latoya Cary RN - 02/17/2025 10:55 AM EDT PSS - per patient, please reschedule today's treatment to 02/18 at 2:00 pm. Thank you. documented in this encounterA[facility]07-[facility] Telephone encounter Note * Telephone Encounter - Yvette Cheng - 02/17/2025 11:26 AM EDT This has been scheduled as directed. Yvette Cheng [facility]07-23-2025 Telephone encounter Note* Telephone Encounter - Latoya Cary RN - 02/17/2025 10:55 AM EDT PSS - per patient, please reschedule today's treatment to 02/18 at 2:00 pm. Thank you. [facility]07-21-2025 Telephone encounter Note* Telephone Encounter - Nikkie Walter LPN - 02/15/2025 1:41 PM EDT Patient is aware. Nikkie Walter LPN [facility]07-21-2025 Miscellaneous Notes* Telephone Encounter - Nikkie Walter LPN - 02/15/2025 1:41 PM EDT Patient is aware. Nikkie Walter LPN * Telephone Encounter - Delvin Ron APRN.CNP - 02/15/2025 1:32 PM EDT Yes, follow up with PCP. Delvin Ron APRN.TRACY * Telephone Encounter - Jordyn Fernandez - 02/15/2025 1:13 PM EDT Patient called asking if she could have the following vaccinations: pneumonia RSV shingles flu Hep B Please advise documented in this encounterAultman [facility]07-[facility]-2025 Telephone encounter Note * Telephone Encounter - Delvin Ron APRN.CNP - 02/15/2025 1:32 PM EDT Yes, follow up with PCP. Delvin Ron APRN.CNP [facility]07-21-2025 Telephone encounter Note* Telephone Encounter - Carlos Alberto LuJordyn - 02/15/2025 1:13 PM EDT Patient called asking if she could have the following vaccinations: pneumonia RSV shingles flu Hep B Please advise [facility] Work Phone: 1(190) 813-874007-15-2025 Telephone encounter Note* Telephone Encounter - Yvette Cheng - 02/09/2025 2:27 PM EDT Spoke w pt and she has bx at [facility] on 03/02, next available w Dr Bennett for follow up is 03/19, which I scheduled. Yvette Cheng [facility]07-15-2025 Miscellaneous Notes* Telephone Encounter - Yvette Cheng - 02/09/2025 2:27 PM EDT Spoke w pt and she has bx at [facility] on 03/02, next available w Dr Bennett for follow up is 03/19, which I scheduled. Yvette Cheng * Telephone Encounter - Delvin Ron APRN.CNP - 02/09/2025 1:03 PM EDT Please see phone note on 12/02/24. Pt. needs follow up per the phone note-nothing is scheduled. She needs to see her surgeon as well-pt. was going to schedule. Thank you. Delvin Ron APRN.CNP documented in this encounterAultman Orrville [facility]07-15-2025 Telephone encounter Note * Telephone Encounter - Delvin Ron APRN.CNP - 02/09/2025 1:03 PM EDT Please see phone note on 12/02/24. Pt. needs follow up per the phone note-nothing is scheduled. She needs to see her surgeon as well-pt. was going to schedule. Thank you. Delvin Ron APRN.REGULATORY LEADER [facility]07-15-2025 Progress [facility] [address] [place] [address]. [address] [place] [address] OFFICE VISIT Date of Service: 02/09/25 MR#: [id number] Acct: [id number] Name: MARIMAR WANG Rep #: [id number] : 1960 Provider: Dr. Swapnil Garcia MD Age/Sex: 64/F Location: [facility] Status: Signed Intake Vital Signs [...] MENTAL HEALTH 0 12/13/15 02/09/25 History peg 361-btsrymimivbk-jsytyxmo 1 1 drp OP 4X/DAY DRY EY [...] PO Q12H 10/2402/09/25 History a dose pack (Eliquis DVT-PE Treat [...] and is currently on blood thinners. Apparently shealso has Crohn's disease that has flared up [...] or vomiting, Yes diarrhea, No constipation, No bloodin stool, No acid reflux, No hemorrhoids, No [...] lack of coordination, No loss ofvision, No memoryloss, No numbness, No other visual disturbances, No radicular pain, No restless legs, No sensory deficit, No syncope, No tingling, No tremor(s), No weakness and No other Exam Const General: cooperative, healthy appearing, comfortable and no acute distress HENMT Head: normal to inspection Eyes General: appearance [...] to have her undergo a flex sig withbiopsies. This will be scheduled in a timely manner. 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 [place] [address] OFFICE VISIT Date of Service: 02/09/25 MR#: [id number] Acct: [id number] Name: MARIMAR WANG Rep #: [id number] : 1960 Provider: Dr. Swapnil Garcia MD Age/Sex: 64/F Location: [facility] Status: Signed Intake Vital Signs [...] MENTAL HEALTH 0 12/13/15 02/09/25 History peg 140-wjyctfhyhzuc-mgedkimr 1 1 drp OP 4X/DAY DRY EY [...] PO Q12H 10/2402/09/25 History a dose pack (Eliquis DVT-PE Treat [...] and is currently on blood thinners. Apparently naomiealsladonna has Crohn's disease that has flared up [...] healthy appearing, comfortable and no acute distress HENMT Head: normal to inspection Eyes General: appearance [...] MD Cosigner Signature: Date (if applicable) CC: AUTOMOTIVE SALES MANAGERMadayC Julio Arriaga ~ [facility] [employer] Work Phone: 1(590) 776-968507-09-2025 Telephone encounter Note* Telephone Encounter - Rosio [...] Visit date not found Patient Phone numbers: [phone] (home) Request is for script(s) to be escript to pharmacy. [facility] [place] [id number] - [address] - [phone] Rosio Buck LPN [facility]07-09-2025 Miscellaneous Notes* Telephone Encounter - Rosio [...] Visit date not found Patient Phone numbers: [phone] (home) Request is for script(s) to be escript to pharmacy. [facility] [place] [id number] - [address] - [phone] Rosio Buck LPN documented in this encounterAultman Orrville [facility]07-07-2025 History of Present illness Narrative* Jackie Fan, RT(R) - 02/01/2025 11:00 AM EDT Radiology [...] PATIENT PRESENTS WITH AN IMPLANTABLE OR ATTACHED POLICY LOAN CALCULATOR: No RADIOLOGY DEPARTMENT: MR; Exam(s) Completed: Body: Rectal. Aromatherapy Administered: No PERIPHERAL IV DATA: Site assessment: Clean,Dry and Intact, Site disposition Left in for next appointment SIGNED BY: Jackie Fan, RT(R) February 01, 2025 10:31 AM documented in this encounterAultman [facility]07-07-2025 NoteC[facility]06-19-20[facility] Evaluation note* Diagnosis Onset Date Resolution Status Admit Date Crohn disease acute January 14, 2025 8:19am Irritable bowel syndrome wit h diarrhea acute January 14, 2025 8:19am [facility] Work Phone: 1(342) 805-319006-19-2025 Evaluation note* Diagnosis Onset Date Resolution Status Admit Date Crohn disease acute January 14, 2025 8:19am Irritable bowel syndrome wit h diarrhea acute January 14, 2025 8:19am Diarrhea chronic February 02, 2025 10:53am 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 acute February 09, 2025 9:32am [facility] Work Phone: 1(753) 679-944406-19-2025 Evaluation note* Diagnosis Onset Date Resolution Status Admit Date Crohn disease acute January 14, 2025 8:19am Irritable bowel syndrome wit h diarrhea acute January 14, 2025 8:19am Diarrhea chronic February 02, 2025 10:53am 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 acute February 09, 2025 9:32am 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 acute March 02, 2025 8:14am [facility] Work Phone: 1(959) 788-917006-19-2025 Evaluation note* Diagnosis Onset Date Resolution Status Admit Date Crohn disease acute January 14, 2025 8:19am Irritable bowel syndrome wit h diarrhea acute January 14, 2025 8:19am Diarrhea chronic February 02, 2025 10:53am 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 acute February 09, 2025 9:32am 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 acute March 02, 2025 8:14am Irritable bowel syndrome wit h diarrhea acute March 16 10:07am Diarrhea chronic March 16, 025 10:07am [facility] Work Phone: 1(230) 208-410206-18-2025 Telephone encounter Note* Telephone Encounter - Rosio [...] Visit date not found Patient Phone numbers: [phone] (home) Request is for script(s) to be escript to pharmacy. [facility] [place] [id number] - [address] [facility] 100 - [phone] Rosio Buck LPN [facility]06-18-2025 Miscellaneous Notes* Telephone Encounter - Rosio [...] Visit date not found Patient Phone numbers: [phone] (home) Request is for script(s) to be escript to pharmacy. [facility] [place] [id number] - [address] [facility] 100 - [phone] Rosio Buck LPN documented in this encounterAultman Orrville [facility]06-10-2025 Telephone encounter Note * Telephone Encounter - Lynn New LPN - 01/05/2025 1:50 PM EDT Pt. Notified she can stop the potassium. Pt. Voiced understanding. Lynn New LPN [facility]06-10-2025 Miscellaneous Notes* Telephone Encounter - Lynn [...] time. Kathya Rich LPN documented in this encounterAultman Orrville Hospital06-10-2025 Telephone encounter Note * Telephone Encounter - Josh Bennett DO - 01/05/2025 1:25 PM EDT She can stop potassium. Josh Bennett DO [facility]06-10-2025 Telephone encounter Note* Telephone Encounter - Kathya Rich LPN - 01/05/2025 11:33 AM EDT [facility]ill req from [facility]. Asking for them both to be filled so pt can refill at the same time. Kathya Rich LPN [facility]06-01-2025 Radiology Diagnostic study note [facility] Imaging Services [address] [place] [address] Pelvis without IV Contrast MR#: [id number] Acct: [id number] Name: MARIMAR WANG Rep #: [id number] : 1960 F 64 From: Huey Mendoza MD PCP: [facility] Arriola Status: REG E R Study:Pelvis without IV Contrast Date of Exam : 12/27/24 Exam# [id number] Ordering Dr: Ekaterina Croft PROCEDURE: PELVIS WITHOUT [...] Contrast IMPRESSION: No acute abnormalities. Reading Location: [id number] CC: AUTOMOTIVE SALES MANAGER-C Julio Arriaga; CY Arcos ~ Pumping Plant Operator: Signed [facility]05-16-2025 Telephone encounter Note* Telephone Encounter - Janie Rice - 12/11/2024 2:51 PM EDT Patient called and rescheduled appointment Janie Rice [facility]05-16-2025 Miscellaneous Notes* Telephone Encounter - Janie Rice - 12/11/2024 2:51 PM EDT Patient called and rescheduled appointment Janie Rice * Telephone Encounter - Janie Rice - 12/11/2024 8:45 AM EDT Cancelled 12/11 treatment per secure chat and needs rescheduled in December. 2ND YR RECLAST/QMO ORENCIA/(PORT)ORDERING PROV DR ARIAS* Janie Rice documented in this encounterAultman Orrville Hospital05-16-2025 Telephone encounter Note * Telephone Encounter - Janie Rice - 12/11/2024 8:45 AM EDT Cancelled 12/11 treatment per secure chat and needs rescheduled in December. YR RECLAST/QMO ORENCIA/(PORT)ORDERING PROV DR ARIAS* Janie Rice [facility]05-15-2025 Telephone encounter Note* Telephone Encounter - Candace Alvarenga MA - 12/10/2024 11:28 AM EDT Pharmacy faxed requesting the following refill. Requested Prescriptions Pending Prescriptions Disp Refills leflunomide (ARAVA) 20 mg tablet [Pharmacy Med Name: LEFLUNOMIDE 20MG TAB] 90 tablet 0 Sig: Take 1 tablet by mouth once daily Patient last appointment: 11/30/24 Next Appointment: Visit date not found Patient Phone numbers: [phone] (home) Request is for script(s) to be escript to pharmacy. Candace Alvarenga MA [facility]05-15-2025 Miscellaneous Notes* Telephone Encounter - Candace Alvarenga MA - 12/10/2024 11:28 AM EDT Pharmacy faxed requesting the following refill. Requested Prescriptions Pending Prescriptions Disp Refills leflunomide (ARAVA) 20 mg tablet [Pharmacy Med Name: LEFLUNOMIDE 20MG TAB] 90 tablet 0 Sig: Take 1 tablet by mouth once daily Patient last appointment: 11/30/24 Next Appointment: Visit date not found Patient Phone numbers: [phone] (home) Request is for script(s) to be escript to pharmacy. Candace Alvarenga MA documented in this encounterAultman Orrville [facility]05-15-2025 Telephone encounter Note * Telephone Encounter - Roxanne Bland RN - 12/10/2024 11:10 AM EDT Addressed in a separate phone encounter. Roxanne Bland RN [facility]05-15-2025 Miscellaneous Notes* Telephone Encounter - Roxanne Bland RN - 12/10/2024 11:10 AM EDT Addressed in a separate phone encounter. Roxanne Bland RN * Telephone Encounter - Delvin Ron APRN.CNP - 11/30/2024 3:12 PM EDT Will do after I talk with Dr. Bennett. Delvin Rno APRN.CNP * Telephone Encounter - Jordyn Fernandez - 11/30/2024 2:39 PM EDT Please advise of follow ups, etc from 11/30 office visit documented in this encounterAultman Orrville [facility]05-12-2025 NoteC[facility]05-12-2025 History of Present illness Narrative* Sidney Joya [...] minutes Sidney Joya MD documented in this encounterAultman Orrville [facility]05-09-2025 Telephone encounter Note * Telephone Encounter - Rosio Bukc LPN - 12/04/2024 3:48 PM EDT Patient notified and verbalized understanding. Patient asking if she can have her Orencia infusion on 12/10/2024 when she gets her Reclast infusion. Rosio Buck LPN [facility]05-09-2025 Miscellaneous Notes* Telephone Encounter - Rosio [...] low dose pred course. documented in this encounterAultman Orrville Hospital05-09-2025 Telephone encounter Note * Telephone Encounter - Rosio Buck LPN - 12/04/2024 3:45 PM EDT Images from the original note were not included. Message Received: 3 days ago Jennifer Arias MD Russell, Tina, LPN Let patient know that we will be resuming orencia in a few weeks and I am sending low dose pred course. [facility]05-05-2025 Telephone encounter Note* Telephone Encounter - Delvin Ron APRN.CNP - 11/30/2024 3:12 PM EDT Will do after I talk with Dr. Bennett. Delvin Ron APRN.CNP [facility]05-05-2025 Telephone encounter Note* Telephone Encounter - Jordyn Fernandez - 11/30/2024 2:39 PM EDT Please advise of follow ups, etc from 11/30 office visit [facility] Work Phone: [phone]) 392-218905-05-2025 Telephone encounter Note* Telephone Encounter - Kelly Cooley MA - 11/30/2024 2:02 PM EDT I called and left a message to get patient set up for a reclast infusion ordered by Dr. Arias. Kelly Cooley MA [facility]05-05-2025 Miscellaneous Notes* Telephone Encounter - Kelly Cooley MA - 11/30/2024 2:02 PM EDT I called and left a message to get patient set up for a reclast infusion ordered by Dr. Arias. Kelly Cooley MA documented in this encounterAultman Orrville Hospital05-05-2025 NoteHNO ID: [id number] Author: JENNIFER ARIAS MD Service: ? Author Type: Physician Type: Progress Notes Filed: 11/30/2024 12:48 Note Text: RHEUMATOLOGY PROGRESS NOTE VIRTUAL VISIT PROGRESS NOTE This is a virtual visit using HIPAA compliant video platform. It required patient-provider interaction for the medical decision making as documented below using Peerzt. I have communicated my name and active licensure. The patient?s identity and physical location were verified at the time of this visit. Either the patient or their legal liability claims representative has been informed of the risks and [...] last chemo/radiation Last Orencia 06/21 Chemo/XRT scheduled 3/10 Getting PICC line soon Joint doing well [...] replaced 01/23/2023. Doing well. Dr. Odalis Cooney [facility] No longer seeing pain mgmt- not on [...] 01/30/2019 Carotid artery stenosis bilateral- [facility] in [facility] COPD (chronic obstructive pulmonary disease) [...] Ischemic Heart Disease Father age 42 from [place] Hypertension Sister other (Other) Brother 18 MVA Angioedema Maternal Grandmother other (CHF) Maternal Grandfather Hypertension Paternal Grandmother Stroke Paternal Grandfather Depression Daughter other (PTSD) Daughter other (Anxiety) Daughter other (svt) Daughter Diabetes Daughter Social History Tobacco Use Smoking status: Former Current packs/day: 0.00 Average packs/day: 1 pack/day for 31.0 years (31.0 ttl pk-yrs) Types (more content not included)...[facility]05-05-2025 History of Present illness Narrative* Jennifer Arias MD - 11/30/2024 12:11 PM EDT Images from the original note were not included. RHEUMATOLOGY PROGRESS NOTE VIRTUAL VISIT PROGRESS NOTE This is a virtual visit using HIPAA compliant video platform. It required patient-provider interaction for the medical decision making as documented below using Peerzt. I have communicated my name and active licensure. The patient s identity and physical location wereverified at the time of this visit. Either the patient or their legal liability claims representative has been informed of the risks and [...] replaced 01/23/2023. Doing well. Dr. Odalis Cooney [facility] No longer seeing pain mgmt- not [...] 01/30/2019 Carotid artery stenosis bilateral- [facility] [place] [facility] COPD (chronic obstructive pulmonary disease) [...] Ischemic Heart Disease Father age 42 from [place] Hypertension Sister other (Other) Brother 18 MVA [...] tablet by mouth two times a day. zmcgjoxxtrURNYU-yhkpkf-axcgtftcy (BMX 1:1:1) 1:1:1 liqd Take 10 mL [...] Take 80 mg by mouth once daily. vptcdj-xwwlxnze-epqdtbt (CREON 36) 36,000-114,000- 180,000 unit delayed release [...] which included preparing to see the patient, dxhx-jl-gxgw patient care, completing clinical documentation, obtaining and/or reviewing separately obtained history, performing a medically appropriate examination, counseling and educating the pat ient/family/caregiver, ordering medications, tests, or procedures, independently interpreting results (not separately reported), communicating results to the patient/family/caregiver, and care coordination (not separately reported). documented in this encounterAultman Orrville Hospital05-05-2025 NoteC[facility]05-05-2025 History of Present illness Narrative* Delvin Ron APRN.REGULATORY LEADER - 11/30/2024 10:35 AM EDT Chief Complaint [...] OV 07/15/2025: Presented to the ED at [facility] on 09/02/2024 with complaint of perianal pain [...] to be a perianal mass. It extended senior care external to the anal verge and another [...] carcinoma in situ. See comment. COMMENT Immunohistochemistry ([id number]) for surrogate HPV marker (p16) will be [...] k/uL 0.15 (L) 0.21 (L) 0.24 (L) [place]% % 15.5 16.2 13.1 Abs [place] <0.87 k/uL 0.72 0.62 0.63 Eosin% % [...] current medications. - Follow up with Dr. oJya as scheduled. - Follow up pending discussion with Dr. Bennett. - Pt. aware to call office with any questions/concerns. The patient indicates understanding of these issues and agrees with the plan. All documentation from previous visit of 11/09/24-Dr. Bennett/myself was copied and pasted, documentation has been reviewed and edited as necessary for today's visit. Delvin Ron APRN.REGULATORY LEADER documented in this encounterAultman Orrville [facility]05-01-2025 Telephone encounter Note * Telephone Encounter - Nikkie Walter LPN - 11/26/2024 10:43 AM EDT Patient completed starter pack of Eliquis. Please send refill. Nikkie Walter LPN [facility]05-01-2025 Miscellaneous Notes* Telephone Encounter - Nikkie Walter LPN - 11/26/2024 10:43 AM EDT Patient completed starter pack of Eliquis. Please send refill. Nikkie Walter LPN documented in this encounterAultman Orrville Hospital04-23-2025 Telephone encounter Note * Telephone Encounter - Nikkie Walter LPN - 11/18/2024 12:30 PM EDT Compazine was sent in 11/17/2024 @ 0712 to [place]. Nikkie Walter LPN [facility]04-23-2025 Miscellaneous Notes* Telephone Encounter - Nikkie Walter LPN - 11/18/2024 12:30 PM EDT Compazine was sent in 11/17/2024 @ 0712 to [place]. Nikkie Walter LPN documented in this encounterAultman Orrville Hospital04-21-2025 NoteC[facility]04-21-2025 History of Present illness Narrative* Elisabeth Quintero [...] patient education: 10 minutes. documented in this encounterAultman Orrville Hospital04-21-2025 Telephone encounter Note * Telephone Encounter [...] New LPN November 16, 2024 7:55 AM [facility]04-21-2025 Miscellaneous Notes* Telephone Encounter - Lynn [...] 16, 2024 7:55 AM documented in this encounterAultman Orrville Hospital04-21-2025 NoteC[facility]04-15-2025 NoteC[facility]04-15-2025 History of Present illness Narrative* Kari Harrington RN - 11/10/2024 9:42 AM EDT Radiation Therapy - Nursing Note (OTV) PATIENT NAME: Marimar Wang PATIENT November 10, 2024 [facility] [place]/LOCATION: [place] NURSING NOTE TYPE: RECTAL Subjective Data see pain assessment Additional Data Do you want to see a Ambulatory Technologist? No, strongly encouraged but does not want to Status: Post-menopausal. Stress Scale: On a scale of 0 to 10, what number best describes how much distress you have experienced in the past week?(0 being no distress and 10 being extreme distress) 4 Social work notified: Pt denied need to see hospice social worker at this time. Nursing Assessment Fatigue: moderate; [...] function pain she is expeirencing is from [facility] since fall a few weeks ago SIGNED [...] planned. Sidney Joya MD documented in this encounterAultman Orrville Hospital04-15-2025 NoteC[facility]04-14-2025 NoteC[facility]04-14-2025 History of Present illness Narrative* Delvin Ron [...] OV 07/15/2025: Presented to the ED at [facility] on 09/02/2024 with complaint of perianal pain [...] to be a perianal mass. It extended senior care external to the anal verge and another [...] carcinoma in situ. See comment. COMMENT Immunohistochemistry ([id number]) for surrogate HPV marker (p16) will be [...] k/uL 0.36 (L) 0.31 (L) 0.17 (L) [place]% % 13.6 11.7 9.6 Abs [place] <0.87 k/uL 0.32 0.47 0.25 Eosin% % [...] as necessary for today's visit. Delvin Ron APRN.REGULATORY LEADER documented in this encounterAultman Orr[facility]04-14-2025 [facility]04-14-2025 History of Present illness Narrative* Latoya Cary RN - 11/09/2024 7:25 AM EDT Patient is here for IVAD port flush/blood draw per Nursing [place] protocol. IVAD is located in right upper [...] Patient tolerated procedure well. documented in this encounterAultman Orrville Hospital04-11-2025 NoteHNO ID: [id number] Author: BETSEY GUIDO RN Service: ? Author Type: Registered Nurse Type: Progress Notes Filed: 11/06/2024 09:56 Note Text: Denies any pain or discomfort at this time. States had occasional nausea during treamtentCC[facility]innati [facility]04-11-2025 History of Present illness Narrative* Betsey Guido RN - 11/06/2024 9:56 AM EDT Denies any pain or discomfort at this time. States had occasional nausea during treamtent documented in this encounterAultman Orrville [facility]04-10-2025 Telephone encounter Note * Telephone Encounter [...] the rolator prescription we had sent to [facility] is going to cost her $59/month. Pt is inquiring if there is a different provider that would possible be cheaper. Pt asking if [facility] is an option. SW to call [facility] and obtain quote if possible. Pt also reported concern there her clinic bill is probably really big by now. Pt alluded to overall financial hardship. SW discussed with pt the [employer] [facility] katelyn and provided pt with documents to complete and return to SW. SW also to refer pt to financial [...] listed in Care Team tab: Yes LYLE Massey-Malena [facility]04-10-2025 Miscellaneous Notes* Telephone Encounter - Raul Hendrix LISW - 11/05/2024 9:51 AM EDT SOCIAL WORK FOLLOW UP NOTE: [facility] Date of service: November 05, 2024 Marimar Wang is being seen for a follow up social work visit. Today's visit includes: patient TOPICS ADDRESSED: SW met with pt this date regarding financial concerns. Pt reports the rolator prescription we had sent to [facility] is going to cost her $59/month. Pt is inquiring if there is a different provider that would possible be cheaper. Pt asking if [facility] is an option. SW to call [facility] and obtain quote if possible. Pt also reported concern there her clinic bill is probably really big by now. Pt alluded to overall financial hardship. SW discussed with pt the [facility] katelyn and provided pt with documents [...] listed in Care Team tab: Yes LYLE Massey-Malena documented in this encounterAultman Orrville Hospital2025 NoteC[facility]2025 History of Present illness Narrative* Kari Harrington, RN - 11/03/2024 9:40 AM EDT Radiation Therapy - Nursing Note (OTV) PATIENT NAME: Marimar Wang PATIENT November 03, 2024 [facility], [place]/LOCATION: [place] NURSING NOTE TYPE: RECTAL Subjective Data see pain assessment, using silvadene and aquaphor Additional Data Do you want to see a Ambulatory Technologist? No Status: Post-menopausal. Stress Scale: On a scale of 0 to 10, what number best describes how much distress you have experienced in the past week?(0 being no distress and 10 being extreme distress) 4 Social work notified: Pt denied need to see hospice social worker at this time. Nursing Assessment Fatigue: increased [...] planned. Sidney Joya MD documented in this encounterAultman Orrville Hospital2025 NoteC[facility] Clinic Luther[facility]04-07-2025 NoteC[facility]04-07-2025 History of Present illness Narrative* Estefania Shine RN - 11/02/2024 11:02 AM EDT Patient arrives after radiation treatment with walker. States that she tripped and fell Saturday night using the bedside commode. She lives with her daughter and they went to the [facility] ER where she was evaluated. Report received and states scan of head and hips showed no bleed or fracture respectively.Pt states that she is bruised on my bottom and goes to right hip Taking percocet for the pain that was Rx from [facility] and controlling pain. Port was placed Saturday afternoon and is ecchymotic. Pt has been applying ice that is relieving mostof the pain. Port is working with a good blood return. Dr Bennett updated on the above and no additional orders received. States to proceed with treatment. Rx sent for Emla cream for port. Estefania Shine RN documented in this encounterAultman Orrville Hospital04-04-2025 NoteC[facility]04-04-2025 History of Present illness Narrative* Josh Bennett [...] OV 07/15/2025: Presented to the ED at [facility] on 09/02/2024 with complaint of perianal pain [...] to be a perianal mass. It extended senior care external to the anal verge and another [...] carcinoma in situ. See comment. COMMENT Immunohistochemistry ([id number]) for surrogate HPV marker (p16) will be [...] 01/30/2019 Carotid artery stenosis bilateral- US in [facility] COPD (chronic obstructive pulmonary disease) [...] by mouth every 6 hours as needed. kambicgaxyIFSVE-egdthg-hpwfxfjtb (BMX 1:1:1) 1:1:1 liqd Take 10 mL [...] Take 80 mg by mouth once daily. qusbut-brbwieta-qgogoxb (CREON 36) 36,000-114,000- 180,000 unit delayed release [...] Ischemic Heart Disease Father age 42 from [place] Hypertension Sister other (Other) Brother 18 MVA [...] necessary. Josh Bennett DO documented in this encounterAultman Orrville Hospital04-04-2025 Radiology Diagnostic study note [facility] Imaging Services [address] [place] [address] HIP, UNI W/ Pelvis 2-3 Views MR#: [id number] Acct: [id number] Name: MARIMAR WANG Rep #: [id number] 6 : 1960 F 64 From: Jonel Mariee MD PCP: [facility] Arriola Status: REG E R Study:HIP, UNI W/ Pelvis 2-3 Views Date of Ex am: 10/30/24 Exam# [id number] Ordering Dr: Aleyda Ambriz DO PROCEDURE: HIP, [...] lower left sacroiliac joint noted. Reading Location: [facility] CC: AUTOMOTIVE SALES MANAGER-C Julio Arriaga; Gaudencio Ambriz DO ~ Pumping Plant Operator: Signed [facility]04-04-2025 Radiology Diagnostic study note [facility] Imaging Services [address] [place] [id number] Brain/Head without Contrast MR#: [id number] Acct: [id number] Name: MARIMAR WANG Rep #: [id number] 5 : 1960 F 64 From: Jonel Mariee MD PCP: [facility] Arriola Status: REG E R Study:Brain/Head without Contrast Date of Exa m: 10/30/24 Exam# [id number] Ordering Dr: Aleyda Ambriz DO PROCEDURE: BRAIN/HEAD [...] mass effect or calvarial fracture. Reading Location: [id number] CC: [facility] Arriaga; Gaudencio Ambriz DO ~ Pumping Plant Operator: Signed [facility]04-02-2025 Telephone encounter Note* Telephone Encounter - Kari Harrington RN - 10/28/2024 1:58 PM EDT Pt was seen at [facility] ER over weekend and had a ash cath inserted due to c/o bladder pain and spasm. Dr Viraj Abreu (covering for DR Joya) was aware of this during OTV 10/27/24. Herurine from [facility] was negative. Her residual urine was 100ml.Dr [...] void or feels she is not emptying. [facility]04-02-2025 Miscellaneous Notes* Telephone Encounter - Kari Harrington RN - 10/28/2024 1:58 PM EDT Pt was seen at [facility] ER over weekend and had a ash cath inserted due to c/o bladder pain and spasm. Dr Viraj Abreu (covering for DR Joya) was aware of this during OTV 10/27/24. Herurine from [facility] was negative. Her residual urine was 100ml.Dr [...] she is not emptying. documented in this encounterAultman Orrville [facility]04-01-2025 NoteC[facility]04-01-2025 History of Present illness Narrative* Ricci Abreu MD - 10/27/2024 9:35 AM EDT Radiation Therapy - Nursing Note (OTV) PATIENT NAME: Marimar Wang PATIENT October 27, 2024 [facility] [place]/LOCATION: [place] NURSING NOTE TYPE: RECTAL Subjective Data bladder symptoms improving with ash and AZO use, states had 1200ml output in 12 hour period. Urine clear and discomfort resolved. Mouths sores from chemo have resolved so eating better, only one meal a day but snacking thru out day Additional Data Do you want to see a Ambulatory Technologist? No Status: Post-menopausal. Stress Scale: On a scale of 0 to 10, what number best describes how much distress you have experienced in the past week?(0 being no distress and 10 being extreme distress) 1 Social work notified: Pt denied need to see hospice social worker at this time. Nursing Assessment Fatigue: increased [...] intact clear yellow urine SIGNED by: Kari Harrington, RN Agree with above. I stressed to the patient that she should get a plan for her ash from her outside physician moraima. Continue radiation as planned. Ricci Abreu MD documented in this encounterAultman Orrville Hospital03-31-2025 Telephone encounter Note * Telephone Encounter - Nikkie Walter LPN - 10/26/2024 4:40 PM EDT Patient is scheduled for port placement on 10/30/2024. I will cancel PICC line at [facility]. Left message at [facility] IR to cancel PICC appointment. Patient is aware. Nikkie Walter LPN [facility]03-31-2025 Miscellaneous Notes* Telephone Encounter - Nikkie Walter LPN - 10/26/2024 4:40 PM EDT Patient is scheduled for port placement on 10/30/2024. I will cancel PICC line at [facility]. Left message at [facility] IR to cancel PICC appointment. Patient is aware. Nikkie Walter LPN * Telephone Encounter - Leilani Nayak - 10/26/2024 1:40 PM EDT Secure chat sent to see when the first available IR port placement can be done Leilani Vadlez Pss * Telephone Encounter - Nikkie Walter LPN - 10/26/2024 1:00 PM EDT PSS- please contact patient MORAIMA to schedule IR port placement at first available site patient is willing to go to. If patient can't get port placed prior to 11/02/2024's treatment, she will still need to keep appointment for PICC placement at [facility] on 10/29/2024. Nikkie Walter LPN * Telephone [...] advise. Nikkie Walter LPN documented in this encounterAultman Orrville Hospital03-31-2025 Telephone encounter Note * Telephone Encounter - Jessica Dias RN - 10/26/2024 4:07 PM EDT You are scheduled for a medi port placement, On 10/30/2024. You are to arrive at 1200 pm and Report to [facility]: [facility]: Radiology Outpatient Desk [id number] You can expect [...] Labs: Lab-work needs to be drawn? No.. Kiln Firer/Transportation: How will you be arriving for your procedure? Private car. You will need a responsible adult to accompany you to and from the procedure. Your piledriver carpenter is required to stay with you until you are taken into the procedure room. Call [phone] with questions [facility]03-31-2025 Miscellaneous Notes* Telephone Encounter - Jessica Dias RN - 10/26/2024 4:07 PM EDT You are scheduled for a medi port placement, On 10/30/2024. You are to arrive at 1200 pm and Report to [facility]: [facility]: Radiology Outpatient Desk [id number] You can expect [...] Labs: Lab-work needs to be drawn? No.. Kiln Firer/Transportation: How will you be arriving for your procedure? Private car. You will need a responsible adult to accompany you to and from the procedure. Your piledriver carpenter is required to stay with you until you are taken into the procedure room. Call [phone] with questions documented in this encounterAultman Orrville Hospital03-31-2025 Telephone encounter Note * Telephone Encounter - Jessica Dias RN - 10/26/2024 2:00 PM EDT Unable to reach pt regarding pre procedure instructions. Call back number provided. [facility]03-31-2025 Miscellaneous Notes* Telephone Encounter - Jessica Dias RN - 10/26/2024 2:00 PM EDT Unable to reach pt regarding pre procedure instructions. Call back number provided. documented in this encounterAultman Orrville Hospital03-31-2025 Telephone encounter Note * Telephone Encounter - Leilani Nayak - 10/26/2024 1:40 PM EDT Secure chat sent to see when the first available IR port placement can be done Leilani Valdez Pss [facility]03-31-2025 Telephone encounter Note* Telephone Encounter - Nikkie Walter LPN - 10/26/2024 1:00 PM EDT PSS- please contact patient MORAIMA to schedule IR port placement at first available site patient is willing to go to. If patient can't get port placed prior to 11/02/2024's treatment, she will still need to keep appointment for PICC placement at [facility] on 10/29/2024. Nikkie Walter LPN [facility]03-31-2025 Telephone encounter Note* Telephone Encounter - Josh Bennett DO - 10/26/2024 12:58 PM EDT Filed. Thank you. Josh Bennett DO [facility]03-31-2025 Telephone encounter Note* Telephone Encounter - Josh Bennett DO - 10/26/2024 12:50 PM EDT I have no problem ordering port placement for her if she is going to continue on her Orencia. However, I agree we may not have time to have one placed for her treatment next week. If not, then she will need a PICC line. Josh Bennett DO [facility]03-31-2025 Telephone encounter Note* Telephone Encounter - [...] to 11/02/2024. Please advise. Nikkie Walter LPN [facility]03-31-2025 Telephone encounter Note* Telephone Encounter - Nikkie Walter LPN - 10/26/2024 10:39 AM EDT Patient went to [facility] ER for SOB and chest pain on 10/24/2024. Ash was placed and patient to followup with Dr. Scott. No need to have bladder scan. Dr. Bennett is aware and has reviewed the [facility] records (including new UAresults). Nikkie Walter LPN [facility]03-31-2025 Miscellaneous Notes* Telephone Encounter - Nikkie Walter LPN - 10/26/2024 10:39 AM EDT Patient went to [facility] ER for SOB and chest pain on 10/24/2024. Ash was placed and patient to followup with Dr. Scott. No need to have bladder scan. Dr. Bennett is aware and has reviewed the [facility] records (including new UAresults). Nikkie Walter LPN * Telephone Encounter - Roxanne Bland RN - 10/23/2024 10:14 AM EDT Nurse was unavailable to do bladder scan today. Patient scheduled at [facility] on 10/26. Dr. Bennett, please review UA [...] and is unable to travel outside of [place]. Patient is willing togo to [facility] if this is a possibility. Called [facility]. Faxed order to #[phone]. Patient notified. She will call [facility] to schedule. Roxanne Bland RN * Telephone [...] speak with Nikkie today. documented in this encounterAultman Orrville Hospital03-31-2025 Telephone encounter Note * Telephone Encounter - Kari Harrington RN - 10/26/2024 10:29 AM EDT lona Oliveira [facility]03-31-2025 Miscellaneous Notes* Telephone Encounter - Kari Harrington RN - 10/26/2024 10:29 AM EDT lona Oliveira * Telephone Encounter - Kari Harrington RN - 10/26/2024 10:14 AM EDT Pt here for radiation treatment. She reports going to [facility] ER on 10/24/24. Shewent for shortness of [...] and [facility] We will re-assess tomorrow. documented in this encounterAultman Orrville Hospital03-31-2025 Telephone encounter Note * Telephone Encounter - Kari Harrington RN - 10/26/2024 10:14 AM EDT Pt here for radiation treatment. She reports going to [facility] ER on 10/24/24. Shewent for shortness of [...] and [facility] We will re-assess tomorrow. [facility]03-29-2025 Radiology Diagnostic study note [facility] Imaging Services [address] [place] [address] CTA Chest W/WO Contrast MR#: [id number] Acct: [id number] Name: MARIMAR WANG Rep #: [id number] 5 : 1960 F 64 From: Holly Obrien MD PCP: [facility] Arriola Status: REG E R Study:CTA Chest W/WO Contrast Date of Exam: 10/24/24 Exam# [id number] Ordering Dr: Josh Disla AUTOMOTIVE SALES MANAGER-Marga PROCEDURE: CTA CHEST W/WO CONTRAST 10/24/2024 REASON [...] in the upper lung zones. Reading Location: [facility] CC: [facility] Arriaga; [facility] Bates ~ Pumping Plant Operator: Signed [facility]03-29-2025 Radiology Diagnostic study note [facility] Imaging Services [address], [place] [id number] Abdomen/Pelvis W IV Cont ONLY MR#: [id number] Acct: [id number] Name: MARIMAR WANG Rep #: [id number] 4 : 1960 F 64 From: Holly Obrien MD PCP: [facility] Arriola Status: REG E R Study:Abdomen/Pelvis W IV Cont ONLY Date of E xam: 10/24/24 Exam# [id number] Ordering Dr: Josh Disla PROCEDURE: ABDOMEN/PELVIS W [...] possibly a chronic postinfectious/inflammatory process. Reading Location: [facility] CC: [facility] Arriaga; [facility] Bates ~ Pumping Plant Operator: Signed [facility]03-28-2025 Telephone encounter Note* Telephone Encounter - Roxanne Bland RN - 10/23/2024 10:14 AM EDT Nurse was unavailable to do bladder scan today. Patient scheduled at [facility] on 10/26. Dr. Bennett, please review UA results. Thank you. Roxanne Bland RN [facility]03-27-2025 Telephone encounter Note* Telephone Encounter - [...] and XRT nurse informed. Roxanne Bland RN [facility]03-27-2025 Telephone encounter Note* Telephone Encounter - Roxanne Bland RN - 10/22/2024 2:46 PM EDT Spoke to patient. Patient stated [facility] will contact her to schedule US. Patient will update this nurse once the appointment has been scheduled. Roxanne Bland RN [facility]03-27-2025 Miscellaneous Notes* Telephone Encounter - Roxanne Bland RN - 10/22/2024 2:46 PM EDT Spoke to patient. Patient stated [facility] will contact her to schedule US. Patient will update this nurse once the appointment has been scheduled. Roxanne Bland RN documented in this encounterAultman Orrville Hospital03-27-2025 Telephone encounter Note * Telephone Encounter [...] and is unable to travel outside of [place]. Patient is willing togo to [facility] if this is a possibility. Called [facility]. Faxed order to #[phone]. Patient notified. She will call [facility] to schedule. Roxanne Bland RN [facility]03-27-2025 Telephone encounter Note* Telephone Encounter - Karly Carter LPN - 10/22/2024 9:47 AM EDT Urology is not in clinic until Sunday October 27, 2024. We can see if locations are available if sheis able to go to surrounding facility for appointment. [facility]03-27-2025 Telephone encounter Note* Telephone Encounter - Jordyn Fernandez - 10/22/2024 9:27 AM EDT This would be for today. - can we see if patient can get a post void residual US tomorrow in Urology? T [facility] Work Phone: [phone]) 192-808803-26-2025 Telephone encounter Note* Telephone Encounter - Roxanne Bland RN - 10/21/2024 4:[address]oke to Dr. Bennett, ABDULAZIZ tomorrow. We can check UA tomorrow for blood. Also, could see if can get post void residual if someone can do the US tomorrow in urology. PSS- can we see if patient can get a post void residual US tomorrow in Urology? Thank you. Roxanne Bland, LÓPEZ [facility]03-26-2025 Telephone encounter Note* Telephone Encounter - [...] and this feels different. Nikkie Walter LPN [facility]03-26-2025 Telephone encounter Note* Telephone Encounter - Jordyn Fernandez - 10/21/2024 3:55 PM EDT Patient states she is having urgency and frequency and is unable to go all the way. She is asking to speak with Nikkie today. [facility]03-26-2025 Telephone encounter Note* Telephone Encounter - Nikkie Walter LPN - 10/21/2024 1:28 PM EDT Patient is scheduled for PICC line placement 10/29/2024 @ [facility] with a 10:30 arrival time. Patient isaware of appointment date and time. Nikkie Walter LPN [facility]03-26-2025 Miscellaneous Notes* Telephone Encounter - Nikkie Walter LPN - 10/21/2024 1:28 PM EDT Patient is scheduled for PICC line placement 10/29/2024 @ [facility] with a 10:30 arrival time. Patient isaware of appointment date and time. Nikkie Walter LPN * Telephone Encounter - Nikkie Walter LPN - 10/21/2024 12:19 PM EDT Patient is aware of all appointment dates and times. I will contact her with a time for the PICC line once [facility] IR gets back to me. Please leave [...] updates. Nikkie Walter LPN documented in this encounterAultman Orrville Hospital03-26-2025 Telephone encounter Note * Telephone Encounter - Nikkie Walter LPN - 10/21/2024 12:19 PM EDT Patient is aware of all appointment dates and times. I will contact her with a time for the PICC line once [facility] IR gets back to me. Please leave this note in the box until then. Nikkie Walter LPN [facility]03-26-2025 Telephone encounter Note* Telephone Encounter - Leilani Nayak - 10/21/2024 9:39 AM EDT Patient has been scheduled for the below requested appointments Leilani Lu [facility]03-26-2025 Telephone encounter Note* Telephone Encounter - Nikkie Walter LPN - 10/21/2024 9:28 AM EDT Orders faxed. See phone note. Nikkie Walter LPN [facility]03-26-2025 Miscellaneous Notes* Telephone Encounter - Nikkie Walter LPN - 10/21/2024 9:28 AM EDT Orders faxed. See phone note. Nikkie Walter LPN * Telephone Encounter - Nikkie Walter LPN - 10/20/2024 5:00 PM EDT I will fax orders to [facility] tomorrow (10/21/2024). Nikkie Walter LPN * Telephone [...] port? Nikkie Walter LPN documented in this encounterAultman Orrville Hospital03-26-2025 Telephone encounter Note * Telephone Encounter [...] patient with scheduling updates. Nikkie Walter LPN [facility]03-25-2025 Telephone encounter Note* Telephone Encounter - Nikkie Walter LPN - 10/20/2024 5:00 PM EDT I will fax orders to [facility] tomorrow (10/21/2024). Nikkie Walter LPN [facility]03-25-2025 Telephone encounter Note* Telephone Encounter - Josh Bennett DO - 10/20/2024 4:19 PM EDT Yes, she will need another PICC line since the second cycle is a Sat-Saturday infusion 5FU. Won't be using mitomycin, so hopefully she won't be as sick. We'll pull PICC when pump off on that Saturday. Josh Bennett DO [facility]03-25-2025 Telephone encounter Note* Telephone Encounter - Nikkie Walter LPN - 10/20/2024 11:28 AM EDT Patient's PICC line DC'd d/t clot. She started Eliquis 10/19/2024. Next scheduled lab/OV is 10/26/2024 and next treatment is scheduled 11/02/2024. Should patient have another PICC placed in right arm for treatment or a port? Nikkie Walter LPN [facility]03-25-2025 NoteC[facility]03-25-2025 History of Present illness Narrative* Shawn Beltran [...] with BM, notes spontaneous anal d/c of ofbsao-fhkdrkw-lcwogmph w/o warning 3-4 times a day. EXAM: [...] NAME: Marimar Wang PATIENT October 20, 2024 [facility] [place]/LOCATION: [place] NURSING NOTE TYPE: MAINTENANCE MACHINE REPAIRER - FEMALE PELVIS Subjective Data My arm is doing better now since yesterday. I'm having akhtar/ green discharge x2-3 a day. Additional Data Do you want to see a Ambulatory Technologist? No Status: Post-menopausal. Stress Scale: On a scale of 0 to 10, what number best describes how much distress you have experienced in the past week?(0 being no distress and 10 being extreme distress) 2 Social work notified: Pt denied need to see hospice social worker at this time. Nursing Assessment Fatigue: increased [...] Aquaphor Skin Sensation: mild burning Focused Assessment MAINTENANCE MACHINE REPAIRER - FEMALE 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 Rectal pain: Moderate. Urinary frequency (D/N): 8/2.Vaginal bleeding: No. Rectal pain only when utilizing restroom. SIGNED by: Tamia Rodriguez RN documented in this encounterAultman [facility]03-24-2025 Telephone encounter Note * Telephone Encounter - Nikkie Walter LPN - 10/19/2024 3:14 PM EDT Patient is aware to hold Plavix while on Eliquis. Eliquis medication instructions reviewed. Patient verbalized understanding. Nikkie Walter LPN [facility]03-24-2025 Miscellaneous Notes* Telephone Encounter - Nikkie aWlter LPN - 10/19/2024 3:14 PM EDT Patient [...] while on Eliquis. She will need to fiber picker this Rx today and take as directed. Nikkie Walter LPN * Telephone Encounter - Josh Bennett DO - 10/19/2024 2:47 PM EDT Rx for apixaban sent. Hold Plavix. Josh Bennett DO * Telephone Encounter - Lynn New LPN - 10/19/2024 2:30 PM EDT Vascular lab @ [facility] contacted office, pt. Positive for DVT in left Axillary Vein. Lynn New LPN documented in this encounterAultman Orrville Hospital03-24-2025 Telephone encounter Note * Telephone Encounter - Jordyn Fernandez - 10/19/2024 3:03 PM EDT Message relayed to patient [facility] Work Phone: [phone]) 146-469703-24-2025 Telephone encounter Note* Telephone Encounter - Nikkie Walter LPN - 10/19/2024 2:56 PM EDT Left message for patient to contact office. Eliquis is $0 for the patient and [facility] is filling it now. She is to Hold Plavix while on Eliquis. She will need to fiber picker this Rx today and take as directed. Nikkie Walter LPN [facility]03-24-2025 Telephone encounter Note* Telephone Encounter - Josh Bennett DO - 10/19/2024 2:47 PM EDT Rx for apixaban sent. Hold Plavix. Josh Bennett DO [facility]03-24-2025 Telephone encounter Note* Telephone Encounter - Lynn New LPN - 10/19/2024 2:30 PM EDT Vascular lab @ [facility] contacted office, pt. Positive for DVT in left Axillary Vein. Lynn New LPN [facility]03-24-2025 Telephone encounter Note* Telephone Encounter - Nikkie Walter LPN - 10/19/2024 12:38 PM EDT Patient is aware and verbalized understanding. Nikkie Walter LPN [facility]03-24-2025 Miscellaneous Notes* Telephone Encounter - Nikkie Walter LPN - 10/19/2024 12:38 PM EDT Patient is aware and verbalized understanding. Nikkie Walter LPN * Telephone Encounter - Josh Bennett DO - 10/19/2024 12:12 PM EDT Potassium low. Please start prescription supplement. Josh Bennett DO documented in this encounterAultman Orrville [facility]03-24-2025 Telephone encounter Note * Telephone Encounter - Josh Bennett DO - 10/19/2024 12:12 PM EDT Potassium low. Please start prescription supplement. Josh Bennett DO [facility]03-24-2025 History of Present illness Narrative* Kiley Chase, LÓPEZ - 10/19/2024 10:30 AM EDT Flushed PICC [...] PICC line measured 41cm. documented in this encounterAultman Orrville Hospital03-24-2025 [facility]-2025 NoteC[facility]03-21-2025 History of Present illness Narrative* Raul Carney RN - 10/16/2024 11:20 AM EDT Delvin MOLINA at chairside to assess patient's mouth sores. Per Delvin MOLINA patient is to put baking sodapaste onto blister area of bottom lip. Patient is to continue using BMX as well. Patient stated understanding. documented in this encounterAultman Orrville Hospital03-21-2025 Telephone encounter Note * Telephone Encounter - Roxanne Bland RN - 10/16/2024 9:02 AM EDT Patient informed of IVF appointment. Patient instructed to stop zofran/phenergan and switch to compazine. Patient stated understanding. Roxanne Bland RN [facility]03-21-2025 Miscellaneous Notes* Telephone Encounter - Roxanne [...] advise. Kathya Rich LPN documented in this encounterAultman Orrville Hospital03-21-2025 Telephone encounter Note * Telephone Encounter - Janie Rice - 10/16/2024 8:57 AM EDT Patient added for hydration Janie Rice [facility]03-21-2025 Telephone encounter Note* Telephone Encounter - Josh Bennett DO - 10/16/2024 8:54 AM EDT Hydration orders entered. Have her try Compazine rather than Phenergan and Zofran. Josh Bennett DO [facility]03-21-2025 Telephone encounter Note* Telephone Encounter - Kathya Rich LPN - 10/16/2024 8:33 AM EDT Please add on for hydration (2nd floor) at 10 am this morning. Will add to schedule. Tx nurse notified. Will make pt aware. Kathya Rich LPN [facility]03-21-2025 Telephone encounter Note* Telephone Encounter - [...] can take for nausea. Roxanne Bland RN [facility]03-21-2025 Telephone encounter Note* Telephone Encounter - [...] IV hydration. Please advise. Kathya Rich LPN [facility]03-18-2025 [facility]03-18-2025 History of Present illness Narrative* Sidney Joya [...] NAME: Marimar Wang PATIENT October 13, 2024 [facility] [place]/LOCATION: [place] NURSING NOTE TYPE: RECTAL Subjective Data no radiation related side effects, has had nausea/vomiting, mouth sorea, she got IV fluids last week and on scheduled for today Additional Data Do you want to see a Ambulatory Technologist? No Status: Post-menopausal. Stress Scale: On a scale of 0 to 10, what number best describes how much distress you have experienced in the past week?(0 being no distress and 10 being extreme distress) 0 Social work notified: Pt denied need to see hospice social worker at this time. Nursing Assessment Fatigue: increased [...] < 2 pads per day SIGNED by: Kair Harrington RN documented in this encounterAultman Orrville [facility]03-18-2025 NoteC[facility]03-17-2025 Telephone encounter Note* Telephone Encounter - Roxanne Bland RN - 10/12/2024 11:00 AM EDT Care Coordination Triage Note Cancer [place] Situation: Patient reports Mouth pain/Mucositis , nausea [...] 4 hours. IVF tomorrow? Will discuss with ARCHITECTURAL MODEL MAKER. Roxanne Bland RN October 12, 2024 11:00 AM [facility]03-17-2025 Miscellaneous Notes* Telephone Encounter - Roxanne Bland RN - 10/12/2024 11:00 AM EDT Care Coordination Triage Note Cancer [place] Situation: Patient reports Mouth pain/Mucositis , nausea [...] 4 hours. IVF tomorrow? Will discuss with ARCHITECTURAL MODEL MAKER. Roxanne Bland RN October 12, 2024 11:00 [...] patches noted. Please advise. documented in this encounterAultman Orrville Hospital03-17-2025 Telephone encounter Note * Telephone Encounter [...] mouth. No white patches noted. Please advise. [facility]03-13-2025 Telephone encounter Note* Telephone Encounter - Roxanne Bland RN - 10/08/2024 12:03 PM EDT [facility] Care Coordination FOLLOW-UP NOTE Patient identified by [...] week. Roxanne Bland RN October 08, 2024 [facility]03-13-2025 Miscellaneous Notes* Telephone Encounter - Roxanne Bland RN - 10/08/2024 12:03 PM EDT [facility] Care Coordination FOLLOW-UP NOTE Patient identified by [...] RN October 08, 2024 documented in this encounterAultman Orrville Hospital03-13-2025 NoteC[facility]03-13-2025 History of Present illness Narrative* Lawanda Rutherford RN - 10/08/2024 10:14 AM EDT Pt's pump beeping during/after radiation. New pump connected. Rate/volume checked with second nurse-LÓPEZ MASSEY documented in this encounterCleveland [id number] NoteCleveland Clinic [facility]03-12-2025 History of Present illness Narrative* Raul Carney [...] like to go home. documented in this encounterAultman Orrville [facility]03-11-2025 Telephone encounter Note * Telephone Encounter [...] after hours number protocol. Roxanne Bland RN [facility]03-11-2025 Miscellaneous Notes* Telephone Encounter - Roxanne [...] protocol. 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 Additional Data Do you want to see a Ambulatory Technologist? No Status: Post-menopausal. Stress Scale: On a scale of 0 to 10, what number best describes how much distress you have experienced in the past week?(0 being no distress and 10 being extreme distress) 5 Social work notified: Pt denied need to see hospice social worker at this time. 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 Rectal [...] planned. Sidney Joya MD documented in this encounterAultman Orrville Hospital03-11-2025 NoteC[facility]03-11-2025 NoteC[facility]03-11-2025 History of Present illness Narrative* Raul Hendrix LISW - 10/06/2024 9:26 AM EDT Spoke with pt regarding a rollator prescription to send to [facility]. SW printed [facility] quick script form and will have physician review and sign. Will fax to [facility] once completed and send to internal scanning. HARITHA Massey documented in this encounterAultman Orrville Hospital03-05-2025 Note* ACP (Advance Care Planning) - Raul Hendrix LISW - 09/30/2024 11:02 AM EST Goals of Care Date of Discussion: 09/29/2024 DIscussion Participants: Marimar Wang (pt) Clinical: HARITHA Massey Patient/Family/Decision Makers: Magda Borjas (daughter) P: [phone] [place] [address] In this encounter: Explained the [place] Order of Decision Makers and patient expressed understanding. Assisted patient in completing Healthcare Power of Cage Loader. Patient named Magda Borjas (daughter) as agent. Assisted patient in completing Living Will. Patient shared that they would like Magda Borjsa (daughter) to make health care decisions for them if they are not able to themselves. Gave copy of completed document to patient services to be scanned into patient's electronic medicalrecord. Provided patient with original document along with requested number of copies. Copy of forms given to patient and a copy given to pt's daughter this date. HARITHA Massey [facility]03-05-2025 Miscellaneous Notes* ACP (Advance Care Planning) - Raul Hendrix LISW - 09/30/2024 11:02 AM EST Goals of Care Date of Discussion: 09/29/2024 DIscussion Participants: Marimar Wang (pt) Clinical: HARITHA Massey Patient/Family/Decision Makers: Magda Borjas (daughter) P: [phone] [address] [facility] [place] [address] In this encounter: Explained the [place] Order of Decision Makers and patient expressed understanding. Assisted patient in completing Healthcare Power of Cage Loader. Patient named Magda Borjas (daughter) as agent. Assisted patient in completing Living Will. Patient shared that they would like Magda Borjas (daughter) to make health care decisions for them if they are not able to themselves. Gave copy of completed document to patient services to be scanned into patient's electronic medicalrecord. Provided patient with original document along with requested number of copies. Copy of forms given to patient and a copy given to pt's daughter this date. HARITHA Massey documented in this encounterAultman Orrville Hospital03-05-2025 History of Present illness Narrative* Azul [...] PATIENT PRESENTS WITH AN IMPLANTABLE OR ATTACHED POLICY LOAN CALCULATOR: No RADIOLOGY DEPARTMENT: Mammography PERIPHERAL IV DATA: Not applicable SIGNED BY: Leslie Wrighto Gabrielle September 30, 2024 11:27 AM documented in this encounterAultman Orrville Hospital03-05-2025 NoteC[facility]03-05-2025 NoteC[facility]03-05-2025 History of Present illness Narrative* Juan José Cheema MD - 09/30/2024 8:56 AM EST Armature Winder Helper Repair provided by Olga Jerry LPN. 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 As applicable, any other physician, advance practice provider, medical student, or other health professional student that will be observing or involved in the sensitive examination for educational or training purposes was discussed with the Patient or Authorized Payroll Services Analyst. The Patient or Authorized Payroll Services Analyst has agreed to proceed with the sensitive [...] external genitalia normal, normal Bartholin's glands, urethra, [place]'s glands, no vulvar lesions, no cervical lesions, [...] Juan José Cheema MD documented in this encounterAultman Orrville [facility]03-04-2025 Telephone encounter Note * Telephone Encounter - Sarah Pearson PA-C - 09/29/2024 11:58 AM EST Saw pt virtually this AM Sarah Pearson PA-C [facility]03-04-2025 Miscellaneous Notes* Telephone Encounter - Sarah Pearson PA-C - 09/29/2024 11:58 AM EST Saw pt virtually this AM Sarah Pearson PA-C documented in this encounterAultman Orrville Hospital03-04-2025 NoteHNO ID: [id number] Author: SARAH PEARSON PA-C Service: ? Author Type: Physician Retail Assistant Type: Progress Notes Filed: 09/29/2024 11:42 Note Text: [facility] [place] [facility] Sarah Pearson PA-C [place]- [address] [place] [address] [place]- [address] [place] [address] [place]- [address] [place] [address] ; RHEUMATOLOGY PROGRESS NOTE VIRTUAL VISIT PROGRESS NOTE This is a virtual visit using HIPAA compliant video platform. It required patient-provider interaction for the medical decision making as documented below using Peerzt. I have communicated my name and active licensure. The patient?s identity and physical location were verified at the time of this visit. Either the patient or their legal liability claims representative has been informed of the risks and [...] replaced 01/23/2023. Doing well. Dr. Odalis [facility] No longer seeing pain mgmt- not [...] 01/30/2019 Carotid artery stenosis bilateral- [facility] COPD (chronic obstructive pulmonary disease) [...] Ischemic Heart Disease Father age 42 from [place] Hypertension Sister other (Other) Brother 18 MVA Angioedema Maternal Grandmother other (CHF) Maternal Grandfather Hypertension Paternal Grandmother Stroke Paternal Grandfather Depression Daughter other (PTSD) Daughter other (Anxiety) Daughter other ( (more content not included)...[facility]03-04-2025 History of Present illness Narrative* Sarah Pearson PA-C - 09/29/2024 9:57 AM EST Images from the original note were not included. [facility] [place]- [address] [place] [address] [place]- [address] [place] [address] [place]- [address] [place] [address] ; RHEUMATOLOGY PROGRESS NOTE VIRTUAL VISIT PROGRESS NOTE This is a virtual visit using HIPAA compliant video platform. It required patient-provider interaction for the medical decision making as documented below using Peerzt. I have communicated my name and active licensure. The patient s identity and physical location wereverified at the time of this visit. Either the patient or their legal liability claims representative has been informed of the risks and [...] replaced 01/23/2023. Doing well. Dr. [facility] No longer seeing pain mgmt- not [...] Ischemic Heart Disease Father age 42 from [place] Hypertension Sister other (Other) Brother 18 MVA [...] Take 80 mg by mouth once daily. [id number] (CREON 36) 36,000-114,000- 180,000 unit delayed release [...] which included preparing to see the patient, [id number] patient care, completing clinical documentation, obtaining and/or reviewing separately obtained history, performing a medically appropriate examination, counseling and educating the pat ient/family/caregiver, ordering medications, tests, or procedures, independently interpreting results (not separately reported), communicating results to the patient/family/caregiver, and care coordination (not separately reported). documented in this encounterAultman Orrville Hospital03-04-2025 Telephone encounter Note * Telephone Encounter - Kari Harrington RN - 09/29/2024 9:44 AM EST Radiation therapist notified of change of start date to 10/05/24 [facility]03-04-2025 Miscellaneous Notes* Telephone Encounter - Kari Harrington RN - 09/29/2024 9:44 AM EST Radiation therapist notified of change of start date to 10/05/24 * Telephone Encounter - Nikkie Walter LPN - 09/28/2024 3:27 PM EST Patient is scheduled for PICC placement 10/02/2024 @ 10:00, [facility]. Patient is aware of appointment date and time. Nikkie Walter LPN * Telephone Encounter - Jordyn Fernandez - 09/28/2024 12:37 PM EST Appointments scheduled. Waiting to hear from [facility] regarding PICC line * Telephone Encounter - Jordyn Fernandez - 09/28/2024 10:47 AM EST Nikkie sent an order to [facility] IR requesting PICC line placement * Telephone [...] can schedule as a nurse visit on and complete with weekly labs. Thank you. Roxanne Doup, RN * Telephone Encounter - Jordyn Fernandez [...] weeks 3, 5, 8 (can alternate with AUTOMOTIVE SALES MANAGER) CBC/CMP D29 DONE CBC/CMP week 8 with [...] PM EST Concurrent chemo/XRT- Marimar Wang - [id number] starting XRT on 10/06 per Mitra See [...] weeks 3, 5, 8 (can alternate with AUTOMOTIVE SALES MANAGER) CBC/CMP D29 CBC/CMP week 8 with OV [...] CT and MRI results documented in this encounterAultman Orrville Hospital03-04-2025 History of Present illness Narrative* Sidney Joya MD - 09/29/2024 12:00 AM EST MARIMAR WANG [id number] 09/29/2024 [facility] Department of Radiation Oncology [facility] RADIATION ONCOLOGY SIMULATION NOTE DATE OF SIMULATION: [...] Joya M.D./billie 53:14 PM documented in this encounterAultman Orrville Hospital03-04-2025 History of Present illness Narrative* Sidney Joya MD - 09/29/2024 12:00 AM EST MARIMAR WANG [id number] 09/29/2024 [facility] Department of Radiation Oncology Treatment Planning [...] Joya M.D. 52:38 PM documented in this encounterAultman Orrville Hospital03-04-2025 [facility]03-04-2025 NoteC[facility]03-03-2025 Telephone encounter Note* Telephone Encounter - Candace Alvarenga MA - 09/28/2024 4:04 PM EST Can we change this patient's appointment to a virtual per patient's request? She is scheduled for tomorrow 09-29-24 in [place] with Sarah. [facility]03-03-2025 Miscellaneous Notes* Telephone Encounter - Candace Alvarenga MA - 09/28/2024 4:04 PM EST Can we change this patient's appointment to a virtual per patient's request? She is scheduled for tomorrow 09-29-24 in [place] with Sarah. documented in this encounterAultman Orrville Hospital03-03-2025 Telephone encounter Note * Telephone Encounter - Nikkie Walter LPN - 09/28/2024 3:27 PM EST Patient is scheduled for PICC placement 10/02/2024 @ 10:00, [facility]. Patient is aware of appointment date and time. Nikkie Walter LPN [facility]03-03-2025 Telephone encounter Note* Telephone Encounter - Jordyn Fernandez - 09/28/2024 12:37 PM EST Appointments scheduled. Waiting to hear from [facility] regarding PICC line [facility] Work Phone: 1(544) 184-267203-03-2025 Telephone encounter Note* Telephone Encounter - Jordyn Fernandez - 09/28/2024 10:47 AM EST Nikkie sent an order to [facility] IR requesting PICC line placement [facility]03-03-2025 Telephone encounter Note* Telephone Encounter - Roxanne [...] weekly labs. Thank you. Roxanne Bland RN [facility]03-03-2025 Telephone encounter Note* Telephone Encounter - Jordyn [...] weeks 3, 5, 8 (can alternate with AUTOMOTIVE SALES MANAGER) CBC/CMP D29 DONE CBC/CMP week 8 with OV (3 weeks after last dose of chemo) Thank you. Roxanne Bland RN [facility]03-02-2025 Telephone encounter Note* Telephone Encounter - Josh Bennett DO - 09/27/2024 2:45 PM EST Can treatment start on 10/05? The chemotherapy regiment is a M-F infusion of 5FU. Josh Bennett DO [facility]02-28-2025 Telephone encounter Note* Telephone Encounter - Jordyn Fernandez - 09/25/2024 4:21 PM EST Concurrent chemo/XRT- Marimar Wang - [id number] starting XRT on 10/06 per Mitra See notes from Roxanne below for ov and labs needed with chemo scheduling Patient had chemo ed on 09/25 [facility]02-28-2025 Telephone encounter Note* Telephone Encounter - Kari Harrington RN - 09/25/2024 3:[address] let [address] Joya know we are ready to proceed. We can let you know when sim /treatment is scheduled [facility]02-28-2025 NoteC[facility]02-28-2025 History of Present illness Narrative* Roxanne Bland RN - 09/25/2024 2:52 PM EST This visit was completed by phone. Portable Sawyer Pre Chemo Patient identified by name and date of . YES Confirmed date and time for chemotherapy ? YES Other appointments (labs, imaging) discussed? YES Discussed where to park (collections clerk), charge for parking YES Discussed where to [...] Work Roxanne Bland RN documented in this encounterAultman Orrville [facility]02-28-2025 Telephone encounter Note * Telephone Encounter - Roxanne Bland RN - 09/25/2024 1:36 PM EST Patient would like to know the stage of her anal cancer. Please advise. Kari/Cesilia-- do you know when patient will be set up for sim? Once patient starts treatment, she will need: CBC/CMP D1 CBC weekly x 8 weeks OV weeks 3, 5, 8 (can alternate with AUTOMOTIVE SALES MANAGER) CBC/CMP D29 CBC/CMP week 8 with OV (3 weeks after last dose of chemo) Thank you. Roxanne Bland RN [facility]02-28-2025 Telephone encounter Note* Telephone Encounter - Roxanne Bland RN - 09/25/2024 10:20 AM EST Patient is scheduled for a chemo edu today. I can discuss results at that time. Roxanne Bland RN [facility]02-27-2025 NoteC[facility]02-27-2025 History of Present illness Narrative* Kimmy Dixon [...] granddaughter will take her. documented in this encounterAultman Orrville Hospital02-27-2025 Telephone encounter Note * Telephone Encounter - Josh Bennett DO - 09/24/2024 4:58 PM EST Okay to give her results. Will proceed with chemotherapy and radiation as planned. Josh Bennett DO [facility]02-27-2025 Telephone encounter Note* Telephone Encounter - Jordyn Fernandez - 09/24/2024 3:14 PM EST Patient requesting 09/23 CT and MRI results [facility]02-26-2025 History of Present illness Narrative* Karly Verdugo RT(R) - 09/23/2024 3:20 PM EST Radiology [...] PATIENT PRESENTS WITH AN IMPLANTABLE OR ATTACHED POLICY LOAN CALCULATOR: No ALLERGIES: Reviewed and unchanged CONTRAST ALLERGY: [...] 2024 TIME: 4:31 PM documented in this encounterAultman Orrville Hospital02-26-2025 NoteC[facility]02-26-2025 History of Present illness Narrative* Jackie Fan RT(R) - 09/23/2024 2:30 PM EST Radiology [...] PATIENT PRESENTS WITH AN IMPLANTABLE OR ATTACHED POLICY LOAN CALCULATOR: No ALLERGIES: Reviewed and unchanged CONTRAST ALLERGY: NO. EXAM: MRI - CONTRAST TYPE: GROUP II PERIPHERAL IV DATA: Ambulatory: A peripheral IV was started in the Left WRIST with a Angio cath: 22gauge. RADIOLOGY DEPARTMENT: MR; Exam(s) Completed: Body: Rectal SIGNATURE: RT Sheyla(R) PATIENT NAME: Marimar Wang DATE: September 23, 2024 TIME: 2:39 PM documented in this encounterAultman Or[facility]02-26-2025 NoteC[facility]02-25-[facility]25 Telephone encounter Note* Telephone Encounter - Jordyn Fernandez - 09/22/2024 9:53 AM EST Patient called for genotyping lab results. Informed her they are still in process. [facility] Work Phone: 1(589) 565-943202-25-2025 Miscellaneous Notes* Telephone Encounter - Jordyn Fernandez - 09/22/2024 9:53 AM EST Patient called for genotyping lab results. Informed her they are still in process. documented in this encounterAultman Orrville [facility]02-21-2025 Telephone encounter Note * Telephone Encounter [...] Team tab: Yes Assessment Completed HARITHA Massey [facility]02-21-2025 Miscellaneous Notes* Telephone Encounter - Raul Hendrix LISW - 09/18/2024 10:15 AM EST SOCIAL WORK FOLLOW UP NOTE: [facility] Date of service: September 17, 2024 Marimar Wang is being seen for a follow up social work visit. Today's visit includes: patient TOPICS ADDRESSED: SW met with pt this date. Pt inquiring [...] Assessment Completed HARITHA Massey documented in this encounterAultman Orrville Hospital02-20-2025 NoteC[facility]02-20-2025 History of Present illness Narrative* Elisabeth Quintero RN - 09/17/2024 10:25 AM EST Radiation Therapy - Nursing Note (Consult) PATIENT NAME: Marimar Wang PATIENT September 17, 2024 [facility] [place]/LOCATION: [place] Chief Complaint: consult Reason for visit: Consult. Referring physician: Internal provider Dr Bennett Subjective Data: see pain assessment Additional Data Do you want to see a Ambulatory Technologist? No Are you interested in information about fertility? No Status: Post-menopausal Stress Scale: On a scale of 0 to 10, what number best describes how much distress you have experienced in the past week?(0 being no distress and 10 being extreme distress) 5 Social work notified: Pt denied need to see hospice social worker at this time. SIGNED by: Elisabeth Quintero [...] some stool leakage. She went to the [facility] ED and was found to have anal mass. CT abdomen/pelvis on 09/02/24 showed a 5.4 cm x 1.6 cm fluid collection with adjuvant fat stranding thought to be compatible with an abscess. On examination at that time by Dr. Kenya Garcia, She had a perianal mass. This extended senior care external to the anal verge and seemed [...] Take 80 mg by mouth once daily. ixytrk-kwjoixxd-hilbjoc (CREON 36) 36,000-114,000- 180,000 unit delayed release [...] 01/30/2019 Carotid artery stenosis bilateral- [facility] [place] [facility] COPD (chronic obstructive pulmonary disease) ([facility]) Crohn disease ([facility]) Depression Diverticulosis Fibromyalgia GERD (gastroesophageal reflux disease) GI bleed 02/2019 Hiatal hernia Repaired 05/07/19 Hyperlipidemia Hypertension Insomnia Iron deficiency anemia Iron deficiency anemia Osteoarthritis Osteoporosis Piriformis syndrome PVC's (premature ventricular contractions) Rheumatoid arthritis ([facility]) Sjogren's disease (HCC) Vitamin D deficiency Prior [...] Ischemic Heart Disease Father age 42 from [place] Hypertension Sister other (Other) Brother 18 MVA [...] that other personnel such as radiation therapists, employment service specialist, and physicists will partici pinon in planning [...] by: Sidney Joya MD cc: Julio Arriaga [address] [place] [address] Josh Bennett [address] [facility] [id number] documented in this encounterAultman Orrville Hospital02-20-2025 NoteC[facility]02-19-2025 Telephone encounter Note* Telephone Encounter - Jordyn Fernandez - 09/16/2024 1:08 PM EST Patient called and rescheduled CT and MRI to 09/23 due to transportation. [facility] Work Phone: 1(130) 528-809002-19-2025 Miscellaneous Notes* Telephone Encounter - Jordyn Fernandez [...] Jordyn Fernandez - 09/16/2024 10:28 AM EST [facility] called stating that order for venous doppler [...] tomorrow.-scheduled STAT US right leg here or [facility].-FAXED TO [facility] PET scan MORAIMA. cancel- per Dr. Bennett. Separate te sent Referral to gynecology upstairs. done Referral to Dr. Joya this week if possible.-SCHEDULED CHEMO ED- Patient said to schedule the rest and she will see it on mychart documented in this encounterAultman Orrville Hospital02-19-2025 Telephone encounter Note * Telephone Encounter - Rosio Buck LPN - 09/16/2024 11:18 AM EST Patient sent a [employer] message requesting the following refill. The original prescription was discontinued on 09/16/2024 by Josh Bennett DO. Renewing this prescription may not be appropriate. Requested Prescriptions Pending Prescriptions Disp Refills cholecalciferol, Vitamin D3, (VITAMIN D3) 1,250 mcg (50,000 unit) cap capsule 90 capsule 1 Sig: Take 1 capsule by mouth every other week. Patient last appointment: 05/15/2024 Next Appointment: 09/29/2024 Patient Phone numbers: [phone] (home) Request is for script(s) to be escript to pharmacy. [facility] [place], [place] [id number] - [address] [address] Rosio Buck LPN [facility]02-19-2025 Miscellaneous Notes* Telephone Encounter - Rosio Buck LPN - 09/16/2024 11:18 AM EST Patient sent a [employer] message requesting the following refill. The original prescription was discontinued on 09/16/2024 by Josh Bennett DO. Renewing this prescription may not be appropriate. Requested Prescriptions Pending Prescriptions Disp Refills cholecalciferol, Vitamin D3, (VITAMIN D3) 1,250 mcg (50,000 unit) cap capsule 90 capsule 1 Sig: Take 1 capsule by mouth every other week. Patient last appointment: 05/15/2024 Next Appointment: 09/29/2024 Patient Phone numbers: [phone] (home) Request is for script(s) to be escript to pharmacy. [facility] [address] [place], [place] [id number] - [address] [phone] 181 Rosio Buck LPN documented in this encounterAultman Orrville Hospital02-19-2025 Telephone encounter Note * Telephone Encounter - Nikkie Walter LPN - 09/16/2024 10:32 AM EST PSS- I spoke with Shirley- please put this patient on her scheduled at 11:30 in vascular lab. DONE Thank you. Nikkie Walter LPN [facility]02-19-2025 Telephone encounter Note* Telephone Encounter - Jordyn Fernandez - 09/16/2024 10:28 AM EST [facility] called stating that order for venous doppler needs an electronic signature. She states order came thru, but cut off at signature. Patient called right after stating the same and was informed that they are possibly scheduling intoMarch and is asking if that is ok. [facility]02-19-2025 Telephone encounter Note* Telephone Encounter - Josh Bennett DO - 09/16/2024 10:10 AM EST Thank you orders filed. Josh Bennett DO [facility]02-19-2025 Telephone encounter Note* Telephone Encounter - Nikkie Walter LPN - 09/16/2024 8:[address] Bennett: Cancel PET scan. STAT MRI pelvis and STAT CT chest. DONE Dr. Bennett- please file orders. PSS- please contact patient to schedule. Nikkie Walter LPN previous AVS- Labs tomorrow.-scheduled STAT US right leg here or [facility].-FAXED TO [facility] PET scan MORAIMA. cancel- per Dr. Bennett. Separate te sent Referral to gynecology upstairs. done Referral to Dr. Joya this week if possible.-SCHEDULED CHEMO ED- Patient said to schedule the rest and she will see it on mychart [facility]02-18-2025 Telephone encounter Note* Telephone Encounter - Janie Rice - 09/15/2024 5:00 PM EST Labs tomorrow.-scheduled STAT US right leg here or [facility].-FAXED TO [facility] PET scan MORAIMA. cancel- per Dr. Bennett. Separate te sent Referral to gynecology upstairs. done Referral to Dr. Joya this week if possible.-SCHEDULED CHEMO ED- DONE Patient said to schedule the rest and she will see it on mychart Janie Rice [facility]02-18-2025 Miscellaneous Notes* Telephone Encounter - Janie Rice - 09/15/2024 5:00 PM EST Labs tomorrow.-scheduled STAT US right leg here or [facility].-FAXED TO [facility] PET scan MORAIMA. cancel- per Dr. Bennett. Separate te sent Referral to gynecology upstairs. done Referral to Dr. Joya this week if possible.-SCHEDULED CHEMO ED- DONE Patient said to schedule the rest and she will see it on mychart Janie Rice documented in this encounterAultman Orrville Hospital02-18-2025 History of Present illness Narrative* Josh [...] Interim history: Presented to the ED at [facility] on 09/02/2024 with complaint of perianal pain [...] to be a perianal mass. It extended senior care external to the anal verge and another [...] carcinoma in situ. See comment. COMMENT Immunohistochemistry ([id number]) for surrogate HPV marker (p16) will be [...] 01/30/2019 Carotid artery stenosis bilateral- [facility] [place] [facility] COPD (chronic obstructive pulmonary disease) [...] Take 80 mg by mouth once daily. ofgquj-pseamutq-ijtriky (CREON 36) 36,000-114,000- 180,000 unit delayed release [...] Ischemic Heart Disease Father age 42 from [place] Hypertension Sister other (Other) Brother 18 MVA [...] was discussed with the patient or authorized liability claims representative. The patient or authorized liability claims representative has agreed to proceed with the sensitive [...] her to get in touch with her outsole rounder to see if she can hold Plavix [...] which included preparing to see the patient, sjox-vd-vovf patient care, completing clinical documentation, obtaining and/or reviewing separately obtained history, performing a medically appropriate examination, counseling and educating the pat ient/family/caregiver, ordering medications, tests, or procedures, and communicating results to thepatient/family/caregiver. Josh Bennett DO documented in this encounterAultman [facility]02-18-2025 NoteC[facility]02-13-2025 Telephone encounter Note* Telephone Encounter - Jennifer Arias MD - 09/10/2024 4:30 PM EST We will have to discuss this with her oncologist [facility]02-13-2025 Miscellaneous Notes* Telephone Encounter - Jennifer [...] PCP. Rosio Buck LPN documented in this encounterAultman Orrville Hospital02-13-2025 Telephone encounter Note * Telephone Encounter [...] out to her PCP. Rosio Buck LPN [facility]02-12-2025 Telephone encounter Note* Telephone Encounter - Mary Vicente LPN - 09/09/2024 7:46 AM EST Pharmacy faxed requesting the following refill. Requested Prescriptions Pending Prescriptions Disp Refills leflunomide (ARAVA) 20 mg tablet [Pharmacy Med Name: LEFLUNOMIDE 20MG TAB] 90 tablet 0 Sig: Take 1 tablet by mouth once daily Patient last appointment: 05/15/2024 Next Appointment: 09/18/2024 Patient Phone numbers: [phone] (home) Request is for script(s) to be escript to pharmacy. Mary Vicente LPN [facility]02-12-2025 Miscellaneous Notes* Telephone Encounter - Mary Vicente LPN - 09/09/2024 7:46 AM EST Pharmacy faxed requesting the following refill. Requested Prescriptions Pending Prescriptions Disp Refills leflunomide (ARAVA) 20 mg tablet [Pharmacy Med Name: LEFLUNOMIDE 20MG TAB] 90 tablet 0 Sig: Take 1 tablet by mouth once daily Patient last appointment: 05/15/2024 Next Appointment: 09/18/2024 Patient Phone numbers: [phone] (home) Request is for script(s) to be escript to pharmacy. Mary Vicente LPN documented in this encounterAultman Orrville Hospital02-10-2025 Telephone encounter Note * Telephone Encounter - Leilani Nayak - 09/07/2024 3:31 PM EST New patient information given to the pss staff from nursing to schedule patient as a est complex with for new diagnosis. I called and spoke to Vidya and scheduled her as she requested for 09/15/24 @ 3:00pm, she confirmed this date and time Leilani Lu [facility]02-10-2025 Miscellaneous Notes* Telephone Encounter - Leilani [...] she needs to see , Per at [facility] because she had a mass in [...] on scheduling Leilani Lu documented in this encounterAultman Orrville Hospital02-10-2025 Telephone encounter Note * Telephone Encounter - Leilani Nayak - 09/07/2024 9:16 AM EST Patient called in stating that she needs to see , Per at [facility] because she had a mass in [...] ofthis. Please advise on scheduling Leilani Lu [facility]02-06-2025 [facility] Medical Records Department [address] [place] [address] Discharge Summary 09/03/24 1552 MR#: [id number] Acct: [id number] Name: MARIMAR WANG Rep #: [id number] : 1960 64 From: Kenya Garcia MD PCP: SINAI Arriola Status:ADM AMOR Location: [place] [address] Providers Date of Admission: 09/02/24 Date of [...] mg PO QHS MENTAL HEALTH 12/13/15 peg 450-hqwrveufevwh-xspirmbc 1 %-0.2 %-0.2 % eye drops (Dry [...] 4 g PO PRN PRN Constipation 01/09/23 bkeyfw-ttkyrqhz-fkpebxl 36,000-114,000-180,000 unit capsule,delay rel (Creon) See Rx Instructions PO .COMPLEX #300 caps 09/25/23 acetaminophen 500 mg tablet 1,000 mg PO Q6H PRN fever or pain 11/15/23 atorvastatin 80 mg tablet 80 mg PO QHS 11/15/23 hydrocortisone 2.5 % topical cream with perineal applicator 1 applic [place] BID PRN Crohn's disease #30 grams 11/29/23 [...] Neut % (Auto) 74 (more content not included)...[facility] 09-02-2024 Evaluation note* Diagnosis Onset Date Resolution Status Admit Date Mass of anus acute August 2:24pm Perirectal abscess resolved Februa 2024 2:24pm 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 acute September 15 025 1:12pm [facility] Work Phone: 1(414) 490-897802-05-2025 [facility] Medical Records Department [address] [place] [address] History Physical Exam 09/02/24 1558 MR#: [id number] Acct: [id number] Name: MARIMAR WANG Rep #: [id number] : 1960 64 From: Kenya Garcia MD PCP: Julio Arriaga NP-C [place] [facility] [place]: [place] [address] HPI - General General Date of Admission: 09/02/24 Date of Service: 09/02/24 Chief Complaint: Rectal pain HPI Narrative MARIMAR WANG, is a 64 F who presents to the [place] emergency department with rectal pain for the [...] positive as well. Dr. Pitts is her routing clerk. Surgery consult was obtained and plans were made to admit the patient and perform an I D. [facility] Medical History (Updated 09/02/24 @ 16:01 by [...] QHS MENTAL HEALTH 6 09/01/24 History peg 797-wzecvrashxty-giqbcjgd 1 1 drp OP 4X/DAY DRY EYES [...] Constipation Unknown History gram/dose oral powder (Miralax) vadaso-nzhgafjs-xfqykue See Rx Instructions PO .COMPLEX 09/01/24 Rx 36,000-114,000-180,000 unit #300 caps capsule,delay rel (Creon) acetaminophen 500 mg tablet 1,000 mg PO Q6H PRN fever or pain 11/15/23 09/01/24 History atorvastatin 80 mg tablet 80 mg PO QHS 11/15/23 09/01/24 His tory hydrocortisone 2.5 % topical cream 1 applic [place] BID PRN Crohn's 10/19 Unknown Rx with [...] dicyclomine 10 mg capsul (more content not included)...[facility]02-05-2025 NoteC[facility]02-05-2025 History of Present illness Narrative* Kimmy Dixon [...] to take her self. documented in this encounterAultman Orrville Hospital01-30-2025 Evaluation note* Diagnosis Onset Date Resolution [...] of skin of buttock acute September 15 1:12pm [facility] Work Phone: 1(433) 317-998201-23-2025 History of Present illness Narrative* Jorge Alberto [...] PATIENT PRESENTS WITH AN IMPLANTABLE OR ATTACHED POLICY LOAN CALCULATOR: No RADIOLOGY DEPARTMENT: Bone Density PERIPHERAL IV DATA: Not applicable SIGNED BY: RT Sandra(R) August 20, 2024 9:29 AM documented in this encounterAultman Orrville Hospital01-23-2025 NoteC[facility]01-20-2025 Telephone encounter Note* Telephone Encounter - Jordyn Fernandez - 08/17/2024 4:13 PM EST Lab rescheduled as requested [facility] Work Phone: 1(398) 552-472001-20-2025 Miscellaneous Notes* Telephone Encounter - Jordyn Fernandez - 08/17/2024 4:13 PM EST Lab rescheduled as requested * Telephone Encounter - Kathya Rich LPN - 08/17/2024 2:13 PM EST Pt cannot make it into lab today. Please move her lab apt to after her bone density. Pt aware. Kathya Rich LPN documented in this encounterAultman Orrville Hospital01-20-2025 Telephone encounter Note * Telephone Encounter - Kathya Rich LPN - 08/17/2024 2:13 PM EST Pt cannot make it into lab today. Please move her lab apt to after her bone density. Pt aware. Kathya Rich LPN [facility]11-19-2024 Telephone encounter Note* Telephone Encounter - Lynn New LPN - 06/16/2024 5:01 PM EST Pt. Aware, first dose is Lynn New LPN [facility]11-19-2024 Miscellaneous Notes* Telephone Encounter - Lynn New LPN - 06/16/2024 5:01 PM EST Pt. Aware, first dose is Lynn New LPN * Telephone Encounter - Lynn New LPN - 06/16/2024 4:56 PM EST ----- Message from Josh Bennett DO sent at 06/16/2024 3:08 PM EST ----- Low iron confirmed. Okay to start iron sucrose. documented in this encounterAultman Orrville Hospital11-19-2024 Telephone encounter Note * Telephone Encounter - Lynn New LPN - 06/16/2024 4:56 PM EST ----- Message from Josh Bennett DO sent at 06/16/2024 3:08 PM EST ----- Low iron confirmed. Okay to start iron sucrose. [facility]11-19-2024 Telephone encounter Note* Telephone Encounter - Lawanda Hunter - 06/16/2024 2:05 PM EST Pharmacist on duty spoke with PSS about an hour ago re: scheduling patient here for Orencia and Iron, that we could get the Orencia in time for if that worked for the patient and that the authorization/orders could be flipped to [place] and there shouldn't be an issue with the authorization. Patient was agreeable to having all treatments in [place]. Spoke with patient and she does want to have treatments here. Advised that her authorization for [place] is no longer open/available and that she will be treated in [place] as she has requested. Mando reschedule balance of iron infusions when she comes in for her treatment on 06/18. Lawanda Hunter [facility]11-19-2024 Miscellaneous Notes* Telephone Encounter - Lawanda Hunter - 06/16/2024 2:05 PM EST Pharmacist on duty spoke with PSS about an hour ago re: scheduling patient here for Orencia and Iron, that we could get the Orencia in time for if that worked for the patient and that the authorization/orders could be flipped to [place] and there shouldn't be an issue with the authorization. Patient was agreeable to having all treatments in [place]. Spoke with patient and she does want to have treatments here. Advised that her authorization for [place] is no longer open/available and that she will be treated in [place] as she has requested. Mando reschedule balance [...] she can have her Orencia infusions at [facility]. Patient does not drive in the snow and she will also be going there for iron infusions. Patient is going to contact the infusion center and see if they will be able to administer Orencia and call the office back. Rosio Buck LPN documented in this encounterAultman Orrville Hospital11-19-2024 Telephone encounter Note * Telephone Encounter - Jordyn Fernandez - 06/16/2024 1:27 PM EST Please review orders and advise. Providers office states that patient would start here in June. [facility] Work Phone: 1(457) 586-139711-19-2024 Telephone encounter Note* Telephone Encounter - Rosio Buck LPN - 06/16/2024 12:25 PM EST Patient asking if she can have her Orencia infusions at [facility]. Patient does not drive in the snow and she will also be going there for iron infusions. Patient is going to contact the infusion center and see if they will be able to administer Orencia and call the office back. Rosio Buck LPN [facility]11-18-2024 NoteC[facility]11-18-2024 History of Present illness Narrative* Josh Bennett, - 06/15/2024 1:49 PM EST Patient referred by Sarah Pearson PA-C for BOZENA. HPI: The patient is a 64-year-old female with a past medical history as outlined below. Has h/o GI bleed. HH repair . Vanessa fundoplication. 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 Sees Dr. Hong. EGD earlier this year for reflux. Esophageal [...] 01/30/2019 Carotid artery stenosis bilateral- [facility] [place] [facility] COPD (chronic obstructive pulmonary disease) [...] Take 80 mg by mouth once daily. wnahvt-rqcuguvg-cueamen (CREON 36) 36,000-114,000- 180,000 unit delayed release [...] Ischemic Heart Disease Father age 42 from [place] Hypertension Sister other (Other) Brother 18 MVA [...] patient, reviewing EGD and colonoscopy reports via [facility] portal, wzyf-no-uoho patient care, completing clinical documentation, obtaining and/or reviewing separately obtained history, performing a medically appropriate examination, counseling and educating the patient/family/caregiver, communicating with other HCPs (not separately reported), and communicating results to the patient/family/caregiver. Josh Bennett DO documented in this encounterAultman Orrville Hospital11-18-2024 Telephone encounter Note * Telephone Encounter - Rosio Buck LPN - 06/15/2024 8:28 AM EST Pharmacy requesting the following refill. Requested Prescriptions Pending Prescriptions Disp Refills leflunomide (ARAVA) 20 mg tablet [Pharmacy Med Name: LEFLUNOMIDE 20MG TAB] 30 tablet 0 Sig: Take 1 tablet by mouth once daily Patient last appointment: 05/15/2024 Next Appointment: 09/18/2024 Patient Phone numbers: [phone] (home) Request is for script(s) to be escript to pharmacy. [facility] [address] [place] [id number] [address] [facility] [phone] [address] Rosio Buck LPN [facility]11-18-2024 Miscellaneous Notes* Telephone Encounter - Rosio Buck LPN - 06/15/2024 8:28 AM EST Pharmacy requesting the following refill. Requested Prescriptions Pending Prescriptions Disp Refills leflunomide (ARAVA) 20 mg tablet [Pharmacy Med Name: LEFLUNOMIDE 20MG TAB] 30 tablet 0 Sig: Take 1 tablet by mouth once daily Patient last appointment: 05/15/2024 Next Appointment: 09/18/2024 Patient Phone numbers: [phone] (home) Request is for script(s) to be escript to pharmacy. [facility] [address] [place] [id number] [address] [facility] [phone] Rosio Buck LPN documented in this encounterAultman Orrville Hospital11-06-2024 Telephone encounter Note * Telephone Encounter - Leilani Nayak - 06/03/2024 2:34 PM EST I called and spoke to the patient and she was unable to make any of the sooner appointments with Judi Portillo CNP so she chose to stay with for 06/15/24 Leilani Lu [facility]11-06-2024 Miscellaneous Notes* Telephone Encounter - Leilani Nayak - 06/03/2024 2:34 PM EST I called and spoke to the patient and she was unable to make any of the sooner appointments with Judi Portillo CNP so she chose to stay with for 06/15/24 Leilani Lu * Telephone Encounter - Kathya Rich LPN - 06/03/2024 1:36 PM EST If pt wants something sooner she could go to Judi as a 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 Kathya Rich LPN * Telephone Encounter - [...] 03, 2024 10:38 AM documented in this encounterAultman Orrville Hospital11-06-2024 Telephone encounter Note * Telephone Encounter - Kathya Rich LPN - 06/03/2024 1:36 PM EST If pt wants something sooner she could go to [facility]i as a 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 Kathya Rich LPN [facility]11-06-2024 Telephone encounter Note* Telephone Encounter - Leilani Nayak - 06/03/2024 10:55 AM EST I called and spoke to patient and scheduled her for first open appointment which was 06/15/24 with Please confirm that this appointment is ok and if anything else is needed prior to visit Leilani Lu [facility]11-06-2024 Telephone encounter Note* Telephone Encounter - Amber Rock - 06/03/2024 10:38 AM EST Patient calling in wanting to schedule her consult to hematology. Please review and advise. Amber Rock June 03, 2024 10:38 AM [facility]11-01-2024 Note* Addendum Note - Sarah Pearson PA-C - 05/29/2024 4:23 PM EDTAddended by: SARAH PEARSON on: 05/29/2024 04:23 PM Modules accepted: Orders [facility]11-01-2024 Miscellaneous Notes* Addendum Note - Sarah [...] she received Iron IV through heme/onc in [facility] several years ago. Relayed protein enriched foods [...] start taking at least 1 tablet daily lrhq-gbb-bhmjrsi. Her proteinlevels are also low, increase protein in diet. Sarah Pearson PA-C 05/29/24 documented in this encounterAultman Orr[facility]11-01-2024 Telephone encounter Note * Telephone Encounter - Sarah Pearson PA-C - 05/29/2024 4:21 PM EDT If she can remember who she saw- I recommend reaching back out for an appt. Consult placed Sarah Pearson PA-C [facility]11-01-2024 Telephone encounter Note* Telephone Encounter - Candace Alvarenga MA - 05/29/2024 4:09 PM EDT Called patient and relayed message. She voiced understanding. Patient states she is unable to take Iron tablets. She states it causes vomiting. She states she received Iron IV through heme/onc in [facility] several years ago. Relayed protein enriched foods to patient. [facility]11-01-2024 Telephone encounter Note* Telephone Encounter - [...] start taking at least 1 tablet daily tgzl-dej-udijewj. Her proteinlevels are also low, increase protein in diet. Sarah Pearson PA-C 05/29/24 [facility]10-18-2024 NoteHNO ID: [id number] Author: SARAH PEARSON PA-C Service: ? Author Type: Physician Retail Assistant Type: Progress Notes Filed: 05/15/2024 16:53 Note Text: [facility] Arthritis and Rheumatology Sarah Pearson PA-C [place]- [address] [place] [address] [place]- [address] [place] [address] [place]- [address] [place] [address] ; RHEUMATOLOGY PROGRESS NOTE VIRTUAL VISIT PROGRESS NOTE This is a virtual visit using HIPAA compliant video platform. It required patient-provider interaction for the medical decision making as documented below using XAPPmedia. I have communicated my name and active licensure. The patient?s identity and physical location were verified at the time of this visit. Either the patient or their legal liability claims representative has been informed of the risks and [...] Right knee replaced 01/23/2023. Doing well. Dr. Oadlis Co[facility] No longer seeing pain mgmt- not [...] 01/30/2019 Carotid artery stenosis bilateral- [place] [facility] COPD (chronic obstructive pulmonary disease) [...] Ischemic Heart Disease Father age 42 from [place] Hypertension Sister other (Other) Brother 18 MVA [...] Never Current Outpatient Medications (more content not included)...[facility]10-18-2024 History of Present illness Narrative* Sarah Pearson PA-C - 05/15/2024 4:26 PM EDT Images from the original note were not included. [facility] Arthritis and Rheumatology Sarah Pearson PA-C [place]- [address] [place] [address] [place]- [address] [place] [address] [place]- [address] [place] [address] ; RHEUMATOLOGY PROGRESS NOTE VIRTUAL VISIT PROGRESS NOTE This is a virtual visit using HIPAA compliant video platform. It required patient-provider interaction for the medical decision making as documented below using Peerzt. I have communicated my name and active licensure. The patient s identity and physical location wereverified at the time of this visit. Either the patient or their legal liability claims representative has been informed of the risks and [...] replaced 01/23/2023. Doing well. Dr. Odalis Co[facility] No longer seeing pain mgmt- not [...] 01/30/2019 Carotid artery stenosis bilateral- [place] [facility] COPD (chronic obstructive pulmonary disease) [...] Ischemic Heart Disease Father age 42 from [place] Hypertension Sister other (Other) Brother 18 MVA [...] Take 80 mg by mouth once daily. lelzgl-cdoqghgp-vtruqmd (CREON 36) 36,000-114,000- 180,000 unit delayed release [...] which included preparing to see the patient, uimy-kk-xegd patient care, completing clinical documentation, obtaining and/or reviewing separately obtained history, performing a medically appropriate examination, counseling and educating the pat ient/family/caregiver, ordering medications, tests, or procedures, independently interpreting results (not separately reported), communicating results to the patient/family/caregiver, and care coordination (not separately reported). documented in this encounterAultman [facility]06-04-2024 Note* Addendum Note - Jennifer Arias MD - 12/31/2023 3:25 PM EDTAddended by: JENNIFER ARIAS on: 12/31/2023 03:25 PM Modules accepted: Orders [facility]06-04-2024 Miscellaneous Notes* Addendum Note - Jennifer [...] cancelled. Rosio Buck LPN documented in this encounterAultman Orrville Hospital06-04-2024 Telephone encounter Note * Telephone Encounter - Rosio Buck LPN - 12/31/2023 3:10 PM EDT Patient left vm stating she contacted her pharmacy to get a refill on Arava and they told her the prescription was cancelled. Rosio Buck LPN [facility]04-25-2024 History of Present illness Narrative* Jennifer [...] replaced 01/23/2023. Doing well. Dr. Odalis Co[facility] No longer seeing pain mgmt- not [...] 01/30/2019 Carotid artery stenosis bilateral- [place] [facility] COPD (chronic obstructive pulmonary disease) [...] Ischemic Heart Disease Father age 42 from [place] Hypertension Sister other (Other) Brother 18 MVA [...] Take 80 mg by mouth once daily. ihmead-ifidlsta-fjwqxer (CREON 36) 36,000-114,000- 180,000 unit delayed release [...] visit. Jennifer Arias MD documented in this encounterAultman Orrville Hospital03-23-2024 Discharge summary Author Pawel Cason [facility] October 19, 2023 7:49pm Note Date/Time October 19, 2023 4:2 0pm [facility] Medical Records Department [address] [place] [address] Emergency Department Summary 10/19/23 MR#: [id number] Acct: [id number] Name: MARIMAR WANG Neela Rep #:[id number] 2 : 1960 63 From: Pawel Cason MD PCP: Julio Arriaga NP-Marga Status:REG E R Location: ED HPI History [...] Prior similar symptoms: No Recent Illness/Hospitalization: [facility] Medical History Acute bacterial conjunctivitis Acute bronchitis [...] HEALTH 11/13/17 [History Last Taken 11/12/17] peg 777-mrisuwbrpeqx-mwuwaxni 1 %-0.2 %-0.2 % eye drops (Dry [...] #60 tabs 08/05/23 [Rx Last Taken Unknown] aubbre-yypnuesv-hzkxmbf 36,000-114,000-180,000 unit capsule,delay rel (Creon) See Rx [...] motor deficits and no sensory deficits noted Ricardo Coma Scale: document GCS findings Spontaneous Obeys [...] Provider: Julio Arriaga NP Referrals: Julio Arriaga AUTOMOTIVE SALES MANAGER, AUTOMOTIVE SALES MANAGER-C [Primary Care Provider] - Disposition Disposition: Home, Self Care What to do if you have Problems For any increased pain, shortness of breath, bleeding, nausea or vomiting, chestpain, or any unexpected problems, contact your Primary Care Provider. Call [facility] ([phone]) or report to the closest Emergency Room. Call 911 if necessary. 10/19/231948 <Electronically signed by Pawel Cason MD> Cosigner Signature (if applicable): CC: AUTOMOTIVE SALES MANAGER-C Julio Arriaga ~ Signed [facility] Work Phone: 1(882) 894-746403-22-2024 Miscellaneous Notes* Telephone Encounter - Roxane Reilly MA - 10/18/2023 10:29 AM EDT Pharmacy faxed requesting the following refill. Requested Prescriptions Pending Prescriptions Disp Refills leflunomide (ARAVA) 20 mg tablet [Pharmacy Med Name: LEFLUNOMIDE 20 MG TABLET] 30 tablet 2 Sig: take 1 tablet by mouth once daily Patient last appointment: 05/21/2023 Next Appointment: 11/21/2023 Patient Phone numbers: [phone] (home) Request is for script(s) to be escript to pharmacy. Roxane Reilly MA documented in this encounterAultman Orr[facility]02-19-2024 Miscellaneous Notes* Telephone Encounter - Irma Mensah - 09/16/2023 3:22 PM EST [place]- [place] Pending [id number] [facility]/Portal Irma Joya, Hydrogen Plant Operations Manager documented in this encounterAultman Orrville Hospital10-24-2023 History of Present illness Narrative* Sarah Pearson PA-C - 05/21/2023 11:19 AM EDT Images from the original note were not included. [facility] Arthritis and Rheumatology Sarah Pearson [address] [place] [address] RHEUMATOLOGY PROGRESS NOTE HPI: Marimar Wang is [...] replaced 01/23/2023. Doing well. Dr. Odalis Cooney [facility] No longer seeing pain mgmt- not [...] 01/30/2019 Carotid artery stenosis bilateral- [place] [facility] COPD (chronic obstructive pulmonary disease) [...] Ischemic Heart Disease Father age 42 from [place] Hypertension Sister other (Other) Brother 18 MVA [...] visit. Sarah Pearson PA-C documented in this encounterAultman [facility]10-02-2023 Miscellaneous Notes* Telephone Encounter - Candace [...] for 04/29 @ 10:40am with Sarah. Irma Joya Pss * Telephone Encounter - Candace Alvarenga MA [...] Sarah Pearson PA-C 04/29/23 documented in this encounterAultman [facility]09-18-2023 Miscellaneous Notes* Telephone Encounter - Rosio [...] Visit date not found Patient Phone numbers: [phone] (home) Request is for script(s) to be escript to pharmacy. [id number] [place] [address] [place] [phone] [address] Rosio Buck LPN documented in this encounterAultman Orr[facility]06-29-2023 Discharge summary [facility] January 24, 2023 8:57am Note Date/Time January 24, 2023 8:57 am [facility] Medical Records Department [address] [place] [address] Discharge Summary 01/24/23 0855 MR#: [id number] Acct: [id number] Name: MARIMAR WANG Rep #:[id number] : 1960 62 From: Michael Rawls DO PCP: SINAI Arriola Status:ADM I N Location: [place] [address] Providers Date of Admission: 01/23/23 Primary Care [...] mg PO QHS MENTAL HEALTH 11/13/17 peg 195-rtnusisnfgce-iggixled 1 %-0.2 %-0.2 % eye drops (Dry [...] prior to her surgery 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 There is good alignment. Postoperative soft tissue changes. Electronically Signed: Juan Antonio Becerra MD at 10:50 EDT , D/C Instructions Discharge Diet: No restrictions [...] Michael Rawls Primary Care Provider: Julio Arriaga AUTOMOTIVE SALES MANAGER Discharge Orders/Prescriptions Prescriptions: New acetaminophen 500 mg [...] Referrals / Follow Up: Julio Arriaga NP, AUTOMOTIVE SALES MANAGER-C [Primary Care Provider] - 01/24/23 0857 <Electronically signed by Michael Rawls DO> Cosigner Signature (if applicable): CC: SINAI Arriaga; Dr. Michael Rawls DO~ Signed [facility] Work Phone: 1(513) 139-789406-29-2023 Discharge summary Author Michael Rawls [facility] January 24, 2023 8:55am Note Date/Time January 24, 2023 8:40 am [facility] Medical Records Department [address] [place] [address] Instructions for Home/Discharge Instructions 01/24/23 0839 MR#: [id number] Acct: [id number] Name: MARIMAR WANG Rep #:[id number] : 1960 62 From: Michael Rawls [...] Referrals / Follow Up: Julio Arriaga NP, AUTOMOTIVE SALES MANAGER-C [Primary Care Provider] - 01/24/2355<Electronically signed by [facility] CC: SINAI Arriaga ~ Signed [facility] Work Phone: 1(820) 586-733906-29-2023 Progress note Author [facility] January 24, 2023 8:39am Note Date/Time January 24, 2023 8:39 am [facility] Medical Records Department [address] [place] [address] Progress Note - Orthopedic 01/24/2337 MR#: [id number] Acct: [id number] Name: MARIMAR WANG Rep #:[id number] 1 : 1960 62 From: Michael Rawls DO PCP: Julio Arriaga AUTOMOTIVE SALES MANAGER-C Status:ADM I N Location: MS3 [id number] Subjective Subjective Seen and examined. Doing well. Requesting to go home. She states she has no complaints no concerns and she is ambulating well. Objective Data Objective Data Vital Signs: Vital Signs Temp Pulse Resp BP Pulse Ox O2 Del Method O2 Flow Rate 97.9 F 74 16 119/65 93 Room Air 4 01/24/23 04:25 01/24/23 04:25 01/24/23 04:25 01/24/23 07:07 01/24/23 04:01/24/23 04:01/23/23 11:15 Oxygen Flow Rate (L/min) 4 Oxygen [...] GFR (MDRD) Non-Af 84, BUN/Creatinine Ratio 12.1, Ofpbriw755 H, Calcium 7.8 L Micro: Microbiology 01/11/23 [...] Cosigner Signature (if applicable): CC: ~ Signed [facility] Work Phone: 1(902) 576-567906-28-2023 Procedure [facility] 01-23-2023 History and physical note Author Michael [facility] January 23, 2023 7:40am Note Date/Time January 23, 2023 7:40 am [facility] Medical Records Department [address] [place] [address] History & Physical Exam 01/23/23 0739 MR#: [id number] Acct: [id number] Name: MARIMAR WANG Rep #:[id number] 2 : 1960 62 From: Michael Rawls DO PCP: SINAI Arriola Status:PRE I N Location: [facility] History and Physical Date of Admission: 01/23/23 [facility] [address] [place] [address] [address] [place] [address] OFFICE VISIT Date of Service: 12/17/22 MR#: [id number] Acct: [id number] Name: MARIMAR WANG Rep #: [id number] : 1960 Provider: Dr. Michael Rawls DO Age/Sex: 62/F Location: [facility] Status: Signed Intake Intake Visit Reasons: RIGHT [...] MENTAL HEALTH 11/13/17 [History Confirmed 12/17/22] peg 564-uvsaloycxaxc-husfnvxy 1 %-0.2 %-0.2 % eye drops (Dry Eye Relief) 1 drp OP 4X/DAY DRY EYES 04/18/18 [History Confirmed 12/17/22] leflunomide 20 mg tablet [...] 50 mg subcut 12/17/22 [History Confirmed 12/17/22] PFSH Medical History Acute ethmoidal sinusitis, unspecified Acute [...] right knee pain. She was referred by Palbo Cruz to discuss right TKA. She has [...] rheumatoid arthritis and corresponding medications, I did vocational guidance counselor her off on this. She is [...] will schedule surgery for outpatient surgery. Discussed IOKARIMEA and she wishes to proceed with this [...] SINAI Arriaga; Dr. Michael Rawls DO~ Signed [facility] Work Phone: [phone]) 272-875106-07-2023 Miscellaneous Notes* Telephone Encounter - Elisabet Armenta Hydrogen Plant Operations Manager - 01/02/2023 11:43 AM EDT Zoledronic Acid 5mg PRECERT NOT REQUIRED [id number] 01.02.23 - 01.03.24 for 1 visit [facility] Dual/Portal Elisabet Armenta Hydrogen Plant Operations Manager documented in this encounterAultman [facility]05-31-2023 Miscellaneous Notes* Telephone Encounter - Mary [...] 08? Mary Vicente LPN documented in this encounterAultman Orrville Hospital05-30-2023 Miscellaneous Notes* Telephone Encounter - Candace Alvarenga MA - 12/25/2022 2:11 PM EDT Patient sent a XAPPmedia message requesting the following refill. This prescription has already been requested on 12-25-[address] Arias. Duplicate request Requested Prescriptions Pending Prescriptions Disp Refills leflunomide (ARAVA) 20 mg tablet 30 tablet 2 Sig: Take 1 tablet by mouth once daily. Patient last appointment: 10/18/2022 Next Appointment: no future appointment is scheduled Patient Phone numbers: [phone] (home) Request is for script(s) to be escript to pharmacy. Candace Alvarenga MA documented in this encounterAultman [facility]05-30-2023 Miscellaneous Notes* Telephone Encounter - Mary Vicente LPN - 12/25/2022 1:07 PM EDT Patient sent a XAPPmedia message requesting the following refill. Requested Prescriptions Pending Prescriptions Disp Refills leflunomide (ARAVA) 20 mg tablet [Pharmacy Med Name: LEFLUNOMIDE 20 MG TABLET] 30 tablet 2 Sig: Take 1 tablet by mouth once daily. Patient last appointment: 10/18/2022 Next Appointment: Visit date not found Patient Phone numbers: [phone] (home) Request is for script(s) to be escript to pharmacy. Mary Vicente LPN documented in this encounterAultman [facility]rville [facility]04-11-2023 Procedure [facility]04-11-2023 Procedure [facility]04-11-2023 Procedure [facility]04-11-2023 Procedure [facility]04-06-2023 Miscellaneous Notes* Telephone Encounter - Tracy Jerry LPN - 11/01/2022 8:45 AM EDT documented in this encounterAultman Orrville Hospital03-29-2023 Miscellaneous Notes* Telephone Encounter - Elisabet Armenta Hydrogen Plant Operations Manager - 10/24/2022 11:51 AM EDT Ori APPROVED [id number] 09.06.22 - 09.06.23 [facility] Medicare Portal Elisabet Armenta Hydrogen Plant Operations Manager documented in this encounterAultman Orrville Hospital03-23-2023 History of Present illness Narrative* Jennifer Arias MD - 10/18/2022 12:03 PM EDT Images from the original note were not included. RHEUMATOLOGY PROGRESS NOTE HPI: Marimar Wang is a 62 year old female seen for RA, osteoporosis. Was diagnosed with TIA. Holter monitor for a fib. Saw neurology and cardiology Was diagnosed with Crohn's disease??. [place]. Getting nausea, cramps, diarrhea. Scheduled for EGD, [...] appointment with neurology scheduled for 08/08/2022 in [place]. Plans on possibly scheduling appointment with a [...] 01/30/2019 Carotid artery stenosis bilateral- [place] [facility] COPD (chronic obstructive pulmonary disease) [...] Ischemic Heart Disease Father age 42 from [place] Hypertension Sister other (Other) Brother 18 MVA [...] appointment with neurology scheduled for 08/08/2022 in [place]. Patient has erythematous scaling lesions noted to [...] visit. Jennifer Arias MD documented in this encounterAultman [facility]rville [facility]03-22-2023 Procedure [facility]02-24-2023 Miscellaneous Notes* Telephone Encounter - Candace Alvarenga MA - 09/21/2022 11:00 AM EST Pharmacy faxed requesting the following refill. Requested Prescriptions Pending Prescriptions Disp Refills leflunomide (ARAVA) 20 mg tablet [Pharmacy Med Name: LEFLUNOMIDE 20 MG TABLET] 30 tablet 2 Sig: Take 1 tablet by mouth once daily. Patient last appointment: 06/26/2022 Next Appointment: 10/18/22 Patient Phone numbers: [phone] (home) Request is for script(s) to be escript to pharmacy. Candace Alvarenga MA documented in this encounterAultman [facility]rville Hospital02-10-2023 Miscellaneous Notes* Telephone Encounter - Sarah Vital RN - 09/07/2022 3:41 PM EST Form faxed back to [facility] today by providers nurse. * Telephone Encounter - Kari Calderon LPN - 09/05/2022 4:23 PM EST rec'd from onbase. * Telephone Encounter - Sarah Vital RN - 09/05/2022 4:07 PM EST Radha with [employer] for [facility] called in and reports they have faxed over the Medical Attestation forms again to fax # [phone]. She states they just need a signature and then faxed back to fax # [phone]. documented in this encounterAultman Orrville Hospital02-09-2023 Consult note Author Acute Doctor [facility] September 06, 2022 10:33am Note Date/Time September 06, 2022 1 0:34am [facility] Medical Records Department [address] [place] [address] Telemedicine Confirmation Receipt 09/06/22 MR#: [id number] Acct: [id number] Name: MARIMAR WANG Rep #:[id number] : 1960 62 From: Acute Doctor PCP: SINAI Arriola Status:REG C LI [facility] has confirmed receipt of a request for visit. This document confirms receipt of the order initiating the consult. To find the results of the consultation, please view the patient's reports for the scanned Telemed Consult. [facility] Work Phone: 1(777) 835-124501-17-2023 Miscellaneous Notes* Telephone Encounter - Mandy Buck [...] advise. Mandy Buck LPN documented in this encounterAultman Orrville Hospital01-05-2023 Instructions* Patient Instructions* Leilani Colmenares APRN.TRACY - 08/02/2022 11:12 AM EST Activity as tolerated Use Ice and/or heat as tolerated as needed documented in this encounterAultman Orrville Hospital01-05-2023 History of Present illness Narrative* Elisabet [...] The patient is nervous/anxious. * Leilani Colmenares APRN.TRACY - 08/02/2022 10:45 AM EST Images from the original note were not included. [facility] Today's Date: 08/01/2022 Last Visit: [...] suspiciousactivity was identified. 08/01/2022 by Leilani Colmenares APRN.REGULATORY LEADER Allergies: ALLERGIES Allergen Reactions Nsaids (Non-Steroid* Anaphylaxis [...] and assume there are 5 lumbar-type vertebrae. Pumping Plant Operator: SABINO Transcribe Date/Time: Jul 05 2021 4:28P [...] mg BID (No RF needed today) Functional Pentecostalism: TENS Additional Studies: Referrals: Additional: Consider SPRINT [...] decision making from today's date. Leilani Colmenares APRN.REGULATORY LEADER [facility] documented in this encounterAultman Orrville Hospital12-13-2022 History of Present illness Narrative* Jorge Alberto Vasquez RT(R) - 07/10/2022 12:30 PM EST Radiology [...] 10, 2022 12:29 PM documented in this encounterAultman Orrville Hospital11-29-2022 History of Present illness Narrative* RT Derrick(R) - 06/26/2022 3:15 PM EST Radiology Service [...] 26, 2022 3:18 PM documented in this encounterAultman Orrville Hospital11-29-2022 Instructions* Patient Instructions* Sarah Pearson PA-C - 06/26/2022 2:41 PM EST Check schedule- schedule Orencia infusion soon Continue Arava daily Check vit D with infusion- will decide if need to take Call cardiology and neurology for appt Schedule bone density [phone] Left hip XR today downstairs documented in this encounterAultman Orrville Hospital11-29-2022 History of Present illness Narrative* Sarah Pearson PA-C - 06/26/2022 1:52 PM EST Images from the original note were not included. [facility] Arthritis [facility] Rheumatology Sarah Pearson [address] [facility] [address] [place] [id number] RHEUMATOLOGY PROGRESS NOTE HPI: Marimar Wang is [...] appointment with neurology scheduled for 08/08/2022 in [place]. Plans on possibly scheduling appointment with a [...] 01/30/2019 Carotid artery stenosis bilateral- [place] [facility] COPD (chronic obstructive pulmonary disease) [...] Ischemic Heart Disease Father age 42 from [place] Hypertension Sister other (Other) Brother 18 MVA [...] appointment with neurology scheduled for 08/08/2022 in [place]. Patient has erythematous scaling lesions noted to [...] and neurology for appt Schedule bone density [phone] Left hip XR today downstairs CY Meredith-S2 TEACHING PROVIDER (Physician/PA/BOAT HOP) NOTE OF PERSONAL INVOLVEMENT IN CARE: I have personally seen and examined the patient and performed the medical decision-making components. I have reviewed the Physician Retail Assistant (PA) Student's documentation and verified the findings inthe note as written. Any additions or changes are noted in bold/italics. Signature: Sarah Pearson Date: 06/26/2022 Time: 4:29 PM JEN CruzC documented in this encounterAultman Orrville [facility]11-18-2022 Miscellaneous Notes* Telephone Encounter - Irma Lu - 06/15/2022 3:13 PM EST Patient scheduled with Sarah for 06/26 in [place]. Irma Joya Pss * Telephone Encounter - [...] Visit date not found Patient Phone numbers: [phone] (home) Request is for script(s) to be escript to pharmacy. Jena Fish MA documented in this encounterAultman Orrville Hospital11-15-2022 Miscellaneous Notes* Telephone Encounter - Jacek Mitchell MD - 06/12/2022 1:48 PM EST Lyjeff block approved, has follow-up in Jul. Jacek Mitchell III, MD, SUJATHA * Telephone Encounter - Santa Murray LPN - 06/12/2022 9:06 AM EST [facility] Telephone Medication Refill Request Name/dose: pregabalin (LYRICA) 150 mg capsule Amount dispensed monthly: 60 Date last filled: 06-04-22 Date last seen in office: 02-01-22 (LEILANI) Provider: Jacek Mitchell MD Next scheduled visit: 08-09-22 Pharmacy: [id number] [place] [address] [address] - [phone] [address] Santa Murray LPN documented in this encounterAultman Orrville [facility]11-14-2022 Miscellaneous Notes* Telephone Encounter - Tracy [...] you. Tracy Jerry LPN documented in this encounterAultman Orrville Hospital10-20-2022 Instructions* Patient Instructions* Carol Mathews APRN.TRACY - 05/17/2022 11:50 AM EDT FACT SHEET FOR PATIENTS, PARENTS, AND CAREGIVERS EMERGENCY USE AUTHORIZATION (EUA) OF PAXLOVID FOR CORONAVIRUS DISEASE 2019 (COVID-19) You are being given this Fact Sheet because your healthcare provider believes it is necessary to provide you with PAXLOVID for the treatment of wpsw-pz-jyzbtozf coronavirus disease (COVID-19) caused by the SARS-CoV-2 [...] virus. COVID-19 illnesses have ranged from very pxvq-mq-cnuzjb, including illness resulting in . While information [...] is an investigational medicine used to treat xivh-em-lynropok COVID-19 in adults and children [12 years [...] of using PAXLOVID to treat people with stql-oo-fivymaec COVID-19. The FDA has authorized the emergency use of PAXLOVID for the treatment of ghdv-cc-hcozdmqa COVID-19in adults and children [12 years of [...] the medicines you take, including prescription and rszo-vdg-pounuzo medicines, vitamins, and herbal supplements. Some medicines [...] (remdesivir) is FDA-approved for the treatment of asfx-gf-uhgfpfyz COVID-19 in certain adults and children. Talk with your doctor to see if Veklury is appropriate for you. Like PAXLOVID, FDA may also allow for the emergency use of other medicines to treat people with COVID-19. Go to https://www.fda.gov/badhksppe-kjplahbdrpat-fpjpjibuyay/znq-xsiuw-nkyumvvulr-and- policy-framework/qppdlhwvc-raf-kukrfafxalzeg for information on the emergency use of [...] if I am or ? There is non destructive evaluation manager treating women or mothers with PAXLOVID. For [...] to FDA MedWatch at www.fda.gov/medwatch or call 9-239-PTC2636 or you can reportside effects to [employer] at the contact information provided below. Website Fax number Telephone number [employer] How should I store PAXLOVID? Store PAXLOVID [...] (EUA). The EUA is supported by a [place] of Health and Human Service (HHS) declaration that circumstances exist to justify the emergency use of drugs and biological productsduring the COVID-19 pandemic. PAXLOVID for the treatment of jfkx-kv-anlnwgye COVID-19 in adults and children [12 years [...] telephone number provided below. Website Telephone number [employer] (5-199-X68-PACK) You can also go to www.[employer].Ininal or call for more information. Pfizer Distributed by [employer] [place] [place] [place] [address] LAB-1494-2.1 Revised: 13 October 2021 FACT SHEET FOR PATIENTS, PARENTS, AND CAREGIVERS EMERGENCY USE AUTHORIZATION (EUA) OF PAXLOVID FOR CORONAVIRUS DISEASE 2019 (COVID-19) You are being given this Fact Sheet because your healthcare provider believes it is necessary to provide you with PAXLOVID for the treatment of uyym-qn-ugrqtjut coronavirus disease (COVID-19) caused by the SARS-CoV-2 [...] virus. COVID-19 illnesses have ranged from very xrpe-bt-rpdtzm, including illness resulting in . While information [...] is an investigational medicine used to treat tsbm-yh-hmohnaja COVID-19 in adults and children [12 years [...] of using PAXLOVID to treat people with juis-il-dlirgibx COVID-19. The FDA has authorized the emergency use of PAXLOVID for the treatment of mtss-zs-ijvyepbr COVID-19in adults and children [12 years of [...] the medicines you take, including prescription and efry-xdr-yczjtnc medicines, vitamins, and herbal supplements. Some medicines [...] (remdesivir) is FDA-approved for the treatment of xtfp-de-rwjdsebg COVID-19 in certain adults and children. Talk with your doctor to see if Veklury is appropriate for you. Like PAXLOVID, FDA may also allow for the emergency use of other medicines to treat people with COVID-19. Go to https://www.fda.gov/erpnaaoay-dunjumgxlere-lmprztgrjgi/kpo-uorjd-jujgdgggyr-and- policy-framework/irhaqqmft-nby-ivpjlrsncbhhq for information on the emergency use of [...] if I am or ? There is non destructive evaluation manager treating women or mothers with PAXLOVID. For [...] not go away. Report side effects to [employer] at www.fda.gov/medwatch or call 5-307-GZU8921 or you can reportside effects to [employer] at the contact information provided below. Website Fax number Telephone number [employer] How should I store PAXLOVID? Store PAXLOVID [...] (EUA). The EUA is supported by a [place] of Health and Human Service (HHS) declaration that circumstances exist to justify the emergency use of drugs and biological productsduring the COVID-19 pandemic. PAXLOVID for the treatment of kypu-fz-usuvmpph COVID-19 in adults and children [12 years [...] telephone number provided below. Website Telephone number [employer] (1-436-I07-VNZS) You can also go to www.[employer] or call for more information. Pfizer Distributed by [employer] [place] [place] [address] LAB-1494-2.1 Revised: 13 October 2021 documented in this encounterAultman Orrville Hospital10-20-2022 History of Present illness Narrative* Carol Mathews APRN.CNP - 05/17/2022 11:42 AM EDT This Team Access Model visit is a virtual encounter. It required patient- provider interaction for the medical decision making as documented below. Patient agrees to the visit: Yes Patient Location: [place] CC: Patient presents with: Covid Test Result [...] 01/30/2019 Carotid artery stenosis bilateral- [place] [facility] COPD (chronic obstructive pulmonary disease) [...] Ischemic Heart Disease Father age 42 from [place] Hypertension Sister other (Other) Brother 18 MVA [...] simvastatin while on paxlovid and discuss with marine engine machinist if she should be holding any of [...] APRN.TRACY Nirmatrelvir/Ritonavir (Paxlovid) Eligibility and Patient Discussion [facility] Formulary Restriction Criteria: Adult outpatients 18 [...] 17, 2022 11:52 AM documented in this encounterAultman Orrville Hospital10-20-2022 Miscellaneous Notes* Telephone Encounter - Betsey Mccabe LPN - 05/17/2022 9:05 AM EDT Patient returned call and went over results, notes from [facility] provider with understanding. Scheduled patient with Carol Mathews AUTOMOTIVE SALES MANAGER at 1140 am my chart virtual visit [...] or schedule a virtual visit online through Playrific onlineIf interested in COVID-19 therapies. Continue supportive therapies as discussed. Be seen in the emergency room if red flag symptoms develop such as chest pain shortness of breath or difficulty breathing. Geronimo Cadena APRN.CNP documented in this encounterAultman Orrville Hospital10-19-2022 History of Present illness Narrative* Sarah De Luna APRN.REGULATORY LEADER - 05/16/2022 9:25 AM EDT SUBJECTIVE: Marimar [...] 01/30/2019 Carotid artery stenosis bilateral- [place] [facility] COPD (chronic obstructive pulmonary disease) [...] Ischemic Heart Disease Father age 42 from [place] Hypertension Sister other (Other) Brother 18 MVA [...] My Chart. MDM: Patient presented to [facility] today for COVID and Influenza testing. [...] COVID WITH FLUA+B, ROUTINE Sarah De Luna APRN.TRACY documented in this encounterAultman Orrville Hospital09-22-2022 Miscellaneous Notes* Telephone Encounter - Roxane Reilly MA - 04/19/2022 3:35 PM EDT Pharmacy faxed requesting the following refill. Requested Prescriptions Pending Prescriptions Disp Refills cyclobenzaprine (FLEXERIL) 10 mg tablet 60 tablet 2 Sig: Take 1 tablet by mouth twice daily as needed. Patient last appointment: 09/02/2019 Next Appointment: 05/31/2022 Patient Phone numbers: [phone] (home) Request is for script(s) to be escript to pharmacy. Roxane Reilly MA documented in this encounterAultman Orrville Hospital09-22-2022 Miscellaneous Notes* Telephone Encounter - Roxane Reilly MA - 04/19/2022 3:34 PM EDT Pharmacy faxed requesting the following refill. Requested Prescriptions Pending Prescriptions Disp Refills cyclobenzaprine (FLEXERIL) 10 mg tablet 60 tablet 2 Sig: Take 1 tablet by mouth twice daily as needed. Patient last appointment: 09/02/2019 Next Appointment: 04/18/2022 Patient Phone numbers: [phone] (home) Request is for script(s) to be escript to pharmacy. Roxane Reilly MA documented in this encounterAultman Orrville Hospital09-01-2022 Note ORIGINAL EXAMINATION: WHOLE BODY BONE [...] Sign Date: 03/29/2022 3:10:43 PM Ordering Provider: [facility]09-01-2022 Note ORIGINAL EXAMINATION: WHOLE BODY BONE [...] Sign Date: 03/29/2022 3:10:43 PM Ordering Provider: [facility]08-30-2022 Miscellaneous Notes* Telephone Encounter - Sarah Benedict - 03/27/2022 3:30 PM EDT pATIENTS 05/17/2022 APPOINTMENT NEEDS RESCHEDULED DUE TO PROVIDER BEING OUT OF OFFICE. lEFT MESSAGEFOR PATIENT TO GET RESCHEDULED. documented in this encounterAultman Orrville Hospital08-25-2022 Miscellaneous Notes* Telephone Encounter - Sarah Benedict - 03/22/2022 9:16 AM EDT Canceled appointment for patient, left message that she needs to call back to reschedule. * Telephone Encounter - Sarah Benedict - 03/22/2022 9:16 AM EDT ----- Message from Shelby Almonte sent at 03/22/2022 8:34 AM EDT ----- Regarding: Spine/Leilani Colmenares(REGULATORY LEADER)/Missed Provider Call Subject Line Format: Medicine / [Provider Name] / [Issue] Patient has been identified by name and Date of (Y/N): Y Patient: Marimar Wang Date of : 1960 Provider for this encounter: Leilani Colmenares APRN.TRACY Reason for the call/escalation: Patient missed phone call from provider. Patient requesting a call back. Was Patient Referred to 911/Seek Emergency Treatment (Y/N): N Did Patient Agree (Y/N): na Was An Attempt Made To Transfer The Patient To The Office (Y/N): N Were You Able To Reach Someone At The Office (Y/N): na If Yes - Patient Was Transferred To (Caregivers Name): na If No - Which [facility] Leadership Fly Tier Did You Speak With Regarding This Patient: na Was an appointment scheduled (Y/N): N Reason patient was requesting visit (RFV/signs and symptoms/diagnosis) : Missed Provider Vat House Laborer calling if other than patient: Patient Return call to if other than patient: na Best contact number: [phone] Thank you, Shelby Almonte March 22, 2022 8:34 AM documented in this encounterAultman Orrville Hospital08-15-2022 Miscellaneous Notes* Telephone Encounter - Rosio Buck LPN - 03/12/2022 9:49 AM EDT Pharmacy requesting the following refill. Requested Prescriptions Pending Prescriptions Disp Refills leflunomide (ARAVA) 20 mg tablet [Pharmacy Med Name: LEFLUNOMIDE 20 MG TABLET] 30 tablet 2 Sig: take 1 tablet by mouth once daily Patient last appointment: 01/30/2022 Michel VV Next Appointment: 05/31/2022 Emeka Patient Phone numbers: [phone] (home) Request is for script(s) to be escript to pharmacy. [id number] [place] [address] [phone] [id number] Rosio Buck LPN documented in this encounterAultman Orrville Hospital07-07-2022 Miscellaneous Notes* Telephone Encounter - Taylor Quintanilla - 02/01/2022 10:27 AM EDT I have attempted to contact this patient by phone, Left brief message on cell voicemail stating that our next appointment that we have in [place] is 02/28/22 if this is okay for her to give me a call backat [phone] EXT [phone] Taylor Quintanilla documented in this encounterAultman Orrville Hospital07-07-2022 Miscellaneous Notes* Telephone Encounter - Anyi [...] COVID vaccine.) Anyi Padron documented in this encounterAultman Orrville Hospital07-07-2022 Instructions* Patient Instructions* Leilani Colmenares APRN.CNP - 02/01/2022 9:56 AM EDT Activity as tolerated Use Ice and/or heat as tolerated as needed documented in this encounterAultman Orrville Hospital07-07-2022 History of Present illness Narrative* Leilani Colmenares APRN.CNP - 02/01/2022 9:36 AM EDT Images from the original note were not included. [facility] Today's Date: 02/01/2022 Last Visit: VV 07/26/21 with Crhiss CASTANEDA Name: Marimar Wang : 1960 Purpose: Established Patient Encounter [...] Comments - nothing is helping Pain Assessment (RN/DIRECTOR OF MATERIALS MANAGEMENT) - - Current Pain Medications: o Opioids: [...] DATE OF EXAM: Jul 05 2021 3:27PM [facility] 0303 - MRI LUMBAR SPINE WO IVCON [...] and assume there are 5 lumbar-type vertebrae. Pumping Plant Operator[facility] Transcribe Date/Time: Jul 05 2021 4:28P Dictated [...] suspiciousactivity was identified. 02/01/2022 by Leilani Colmenares APRN.REGULATORY LEADER Last Drug screen: Not Applicable appropriate. Risk [...] Reviewed and consistent, ORT low risk Functional Pentecostalism: No changes-continue current regimen Additional Studies: None [...] decision making from today's date. Leilani Colmenares APRN.REGULATORY LEADER Pain Management [facility] * Kailyn Denney MA - 02/01/2022 9:18 [...] patient is not nervous/anxious. documented in this encounterAultman Orrville Hospital07-05-2022 History of Present illness Narrative* Sarah Pearson PA-C - 01/30/2022 12:54 PM EDT Images from the original note were not included. [facility] Arthritis and Rheumatology Sarah Pearson [address] [place] [id number] RHEUMATOLOGY PROGRESS NOTE VIRTUAL VISIT PROGRESS NOTE This is a virtual visit using X[employer] video visit. It required patient-provider interaction for [...] 01/30/2019 Carotid artery stenosis bilateral- [place] [facility] COPD (chronic obstructive pulmonary disease) [...] 09/23/2017 normal, bxs negative Dr. Tapia [facility] INTRALUMINAL ESOPHAGUS-ILEUM W/I&R 10/04/2017 Normal smallbowel [...] Ischemic Heart Disease Father age 42 from [place] Hypertension Sister other (Other) Brother 18 MVA [...] min Sarah Pearson PA-C documented in this encounterAultman Orrville Hospital06-24-2022 Miscellaneous Notes* Telephone Encounter - Candace Alvarenga MA - 01/19/2022 8:30 AM EDT Pharmacy faxed requesting the following refill. Pending Prescriptions Disp Refills CYCLOBENZAPRINE 10 MG TABLET 60 tablet 2 Sig: take 1 tablet by mouth twice a day if needed SHAUN: Yes Patient last appointment: 10/31/21 Next Appointment: 01/30/2022 Patient Phone numbers: [phone] (home) Request is for script(s) to be escript to pharmacy. Candace Alvarenga MA documented in this encounterAultman Orrville Hospital06-24-2022 Miscellaneous Notes* Telephone Encounter - Kiley [...] advise. Kiley Mejia LPN documented in this encounterAultman Orrville Hospital06-14-2022 Miscellaneous Notes* Telephone Encounter - Tracy Jerry [...] you. Tracy Jerry LPN documented in this encounterAultman Orrville Hospital06-09-2022 Miscellaneous Notes* Telephone Encounter - Savanna Flowers Peel Oven Tender Ppg - 01/04/2022 4:21 PM EDT Re[employer]ast APPROVED [id number] 01.25.2022 - 01.25.2023 per [facility] medicare Portal Savanna Flowers [employer] Oven Tender Ppg documented in this encounterAultman Orrville Hospital04-25-2022 Miscellaneous Notes* Telephone Encounter - Kelly [...] you. Kelly Blakely LPN documented in this encounterAultman Orrville Hospital04-25-2022 Miscellaneous Notes* Telephone Encounter - Kelly [...] you. Kelly Blakely LPN documented in this encounterAultman Orrville Hospital01-31-2022 Hospital Discharge instructions Follow Up Care 08/28/2021 21:53:27 With:BELLA GILLESPIE MD, Orthopedic, Wound Care, Wound Care Service, Orthopedic, Wound Care, Wound Care Service, Orthopedic, Wound Care, Wound Care Service Address: [address] [place] [address] [address] [address]- When:09/13/2021 08:30:00 Comments:Follow up With:Patient is discharged to [facility] skilled LOC. Please call report to [phone] Address:Unknown When:1-2 days With:SELENE PIERRE Address: [address] [place] [id number] Business (1) When:1-2 days [facility] 01-31-2022 Evaluation + Plan noteExtracted from: [...] 05:45:06 EST Preoperative hemoglobin 13.7, platelets [address] [facility] 10-04-2021 History of Present illness Narrative* Lorie Clarke RT(R) - 05/01/2021 2:10 PM EDT Radiology [...] 01, 2021 2:03 PM documented in this encounterAultman Orrville Hospital09-23-2021 Miscellaneous Notes* Telephone Encounter - Selene [...] none today. Last time had diarrhea was yiiqbhpvx-1-7 times last evening. 6. CONTACTS: 3 grandchildren there, but do not have symptoms. 7. CAUSE: Covid 8. HYDRATION STATUS: Dry mouth. Has weakness but can stand, cannot go very far. Last void this morning around 7:30 am. Urine was not dark. 9. OTHER SYMPTOMS: Had headache in the beginning, but they stopped. No dizziness. Not vomiting blood. 10. : No. Protocols used: [id number] documented in this encounterAultman Orrville Hospital07-14-2021 History of Present illness Narrative* Teagan [...] 08, 2021 10:52 AM documented in this encounterAultman Orrville Hospital04-26-2021 History of Past illness Narrative* Problem Noted Date Resolved Date Sacroiliitis 11/21/2020 03/06/2021 Tear of medial meniscus of right knee 09/24/2019 10/02/2019 GI bleed 01/28/2019 07/31/2019 Absolute anemia 09/05/2017 02/06/2018 Overview: Added automatically from request for surgery [id number] Morbid obesity with BMI of 40.0-44.9, adult [...] 07/31/2019 Last Assessment & Plan: 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, she thinks it is from her RA, wants a wrist splint documented as of this encounter (statuses as of 11/01/2021) [facility]04-26-[facility] History of Past illness Narrative* Problem Noted Date Resolved Date Sacroiliitis 11/21/2020 03/06/2021 Tear of medial meniscus of right knee 09/24/2019 10/02/2019 GI bleed 01/28/2019 07/31/2019 Absolute anemia 09/05/2017 02/06/2018 Overview: Added automatically from request for surgery [id number] Morbid obesity with BMI of 40.0-44.9, adult [...] 07/31/2019 Last Assessment & Plan: 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, she thinks it is from her RA, wants a wrist splint documented as of this encounter (statuses as of 11/02/2021) [facility] History of Past illness Narrative* Problem Noted Date Resolved Date Sacroiliitis 11/21/2020 03/06/2021 Tear of medial meniscus of right knee 09/24/2019 10/02/2019 GI bleed 01/28/2019 07/31/2019 Absolute anemia 09/05/2017 02/06/2018 Overview: Added automatically from request for surgery [id number] Morbid obesity with BMI of 40.0-44.9, adult [...] 07/31/2019 Last Assessment & Plan: 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, she thinks it is from her RA, wants a wrist splint documented as of this encounter (statuses as of 11/20/2021) [facility] History of Past illness Narrative* Problem Noted Date Resolved Date Sacroiliitis 11/21/2020 03/06/2021 Tear of medial meniscus of right knee 09/24/2019 10/02/2019 GI bleed 01/28/2019 07/31/2019 Absolute anemia 09/05/2017 02/06/2018 Overview: Added automatically from request for surgery [id number] Morbid obesity with BMI of 40.0-44.9, adult [...] 07/31/2019 Last Assessment & Plan: 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, she thinks it is from her RA, wants a wrist splint documented as of this encounter (statuses as of 11/20/2021) [facility] of Past illness Narrative* Problem Noted Date Resolved Date Sacroiliitis 11/21/2020 03/06/2021 Tear of medial meniscus of right knee 09/24/2019 10/02/2019 GI bleed 01/28/2019 07/31/2019 Absolute anemia 09/05/2017 02/06/2018 Overview: Added automatically from request for surgery [id number] Morbid obesity with BMI of 40.0-44.9, adult [...] 07/31/2019 Last Assessment & Plan: 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, she thinks it is from her RA, wants a wrist splint documented as of this encounter (statuses as of 11/21/2021) [facility] of Past illness Narrative* Problem Noted Date Resolved Date Sacroiliitis 11/21/2020 03/06/2021 Tear of medial meniscus of right knee 09/24/2019 10/02/2019 GI bleed 01/28/2019 07/31/2019 Absolute anemia 09/05/2017 02/06/2018 Overview: Added automatically from request for surgery [id number] Morbid obesity with BMI of 40.0-44.9, adult [...] 07/31/2019 Last Assessment & Plan: 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, she thinks it is from her RA, wants a wrist splint documented as of this encounter (statuses as of 11/27/2021) [facility] of Past illness Narrative* Problem Noted Date Resolved Date Sacroiliitis 11/21/2020 03/06/2021 Tear of medial meniscus of right knee 09/24/2019 10/02/2019 GI bleed 01/28/2019 07/31/2019 Absolute anemia 09/05/2017 02/06/2018 Overview: Added automatically from request for surgery [id number] Morbid obesity with BMI of 40.0-44.9, adult [...] 07/31/2019 Last Assessment & Plan: 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, she thinks it is from her RA, wants a wrist splint documented as of this encounter (statuses as of 11/30/2021) [facility] of Past illness Narrative* Problem Noted Date Resolved Date Sacroiliitis 11/21/2020 03/06/2021 Tear of medial meniscus of right knee 09/24/2019 10/02/2019 GI bleed 01/28/2019 07/31/2019 Absolute anemia 09/05/2017 02/06/2018 Overview: Added automatically from request for surgery [id number] Morbid obesity with BMI of 40.0-44.9, adult [...] 07/31/2019 Last Assessment & Plan: 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, she thinks it is from her RA, wants a wrist splint documented as of this encounter (statuses as of 12/22/2021) [facility] of Past illness Narrative* Problem Noted Date Resolved Date Sacroiliitis 11/21/2020 03/06/2021 Tear of medial meniscus of right knee 09/24/2019 10/02/2019 GI bleed 01/28/2019 07/31/2019 Absolute anemia 09/05/2017 02/06/2018 Overview: Added automatically from request for surgery [id number] Morbid obesity with BMI of 40.0-44.9, adult [...] 07/31/2019 Last Assessment & Plan: 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, she thinks it is from her RA, wants a wrist splint documented as of this encounter (statuses as of 12/28/2021) [facility] of Past illness Narrative* Problem Noted Date Resolved Date Sacroiliitis 11/21/2020 03/06/2021 Tear of medial meniscus of right knee 09/24/2019 10/02/2019 GI bleed 01/28/2019 07/31/2019 Absolute anemia 09/05/2017 02/06/2018 Overview: Added automatically from request for surgery [id number] Morbid obesity with BMI of 40.0-44.9, adult [...] 07/31/2019 Last Assessment & Plan: 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, she thinks it is from her RA, wants a wrist splint documented as of this encounter (statuses as of 01/04/2022) [facility]04-26-2021 History of Past illness Narrative* Problem Noted Date Resolved Date Sacroiliitis 11/21/2020 03/06/2021 Tear of medial meniscus of right knee 09/24/2019 10/02/2019 GI bleed 01/28/2019 07/31/2019 Absolute anemia 09/05/2017 02/06/2018 Overview: Added automatically from request for surgery [id number] Morbid obesity with BMI of 40.0-44.9, adult [...] 07/31/2019 Last Assessment & Plan: 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, she thinks it is from her RA, wants a wrist splint documented as of this encounter (statuses as of 01/10/2022) [facility]04-[facility]21 History of Past illness Narrative* Problem Noted Date Resolved Date Sacroiliitis 11/21/2020 03/06/2021 Tear of medial meniscus of right knee 09/24/2019 10/02/2019 GI bleed 01/28/2019 07/31/2019 Absolute anemia 09/05/2017 02/06/2018 Overview: Added automatically from request for surgery [id number] Morbid obesity with BMI of 40.0-44.9, adult [...] 07/31/2019 Last Assessment & Plan: 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, she thinks it is from her RA, wants a wrist splint documented as of this encounter (statuses as of 01/19/2022) [facility] History of Past illness Narrative* Problem Noted Date Resolved Date Sacroiliitis 11/21/2020 03/06/2021 Tear of medial meniscus of right knee 09/24/2019 10/02/2019 GI bleed 01/28/2019 07/31/2019 Absolute anemia 09/05/2017 02/06/2018 Overview: Added automatically from request for surgery [id number] Morbid obesity with BMI of 40.0-44.9, adult [...] 07/31/2019 Last Assessment & Plan: 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, she thinks it is from her RA, wants a wrist splint documented as of this encounter (statuses as of 01/23/2022) [facility] History of Past illness Narrative* Problem Noted Date Resolved Date Sacroiliitis 11/21/2020 03/06/2021 Tear of medial meniscus of right knee 09/24/2019 10/02/2019 GI bleed 01/28/2019 07/31/2019 Absolute anemia 09/05/2017 02/06/2018 Overview: Added automatically from request for surgery [id number] Morbid obesity with BMI of 40.0-44.9, adult [...] 07/31/2019 Last Assessment & Plan: 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, she thinks it is from her RA, wants a wrist splint documented as of this encounter (statuses as of 01/26/2022) [facility] History of Past illness Narrative* Problem Noted Date Resolved Date Sacroiliitis 11/21/2020 03/06/2021 Tear of medial meniscus of right knee 09/24/2019 10/02/2019 GI bleed 01/28/2019 07/31/2019 Absolute anemia 09/05/2017 02/06/2018 Overview: Added automatically from request for surgery [id number] Morbid obesity with BMI of 40.0-44.9, adult [...] 07/31/2019 Last Assessment & Plan: 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, she thinks it is from her RA, wants a wrist splint documented as of this encounter (statuses as of 01/29/2022) [facility] History of Past illness Narrative* Problem Noted Date Resolved Date Sacroiliitis 11/21/2020 03/06/2021 Tear of medial meniscus of right knee 09/24/2019 10/02/2019 GI bleed 01/28/2019 07/31/2019 Absolute anemia 09/05/2017 02/06/2018 Overview: Added automatically from request for surgery [id number] Morbid obesity with BMI of 40.0-44.9, adult [...] 07/31/2019 Last Assessment & Plan: 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, she thinks it is from her RA, wants a wrist splint documented as of this encounter (statuses as of 01/30/2022) [facility] History of Past illness Narrative* Problem Noted Date Resolved Date Sacroiliitis 11/21/2020 03/06/2021 Tear of medial meniscus of right knee 09/24/2019 10/02/2019 GI bleed 01/28/2019 07/31/2019 Absolute anemia 09/05/2017 02/06/2018 Overview: Added automatically from request for surgery [id number] Morbid obesity with BMI of 40.0-44.9, adult [...] 07/31/2019 Last Assessment & Plan: 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, she thinks it is from her RA, wants a wrist splint documented as of this encounter (statuses as of 02/01/2022) [facility] History of Past illness Narrative* Problem Noted Date Resolved Date Sacroiliitis 11/21/2020 03/06/2021 Tear of medial meniscus of right knee 09/24/2019 10/02/2019 GI bleed 01/28/2019 07/31/2019 Absolute anemia 09/05/2017 02/06/2018 Overview: Added automatically from request for surgery [id number] Morbid obesity with BMI of 40.0-44.9, adult [...] 07/31/2019 Last Assessment & Plan: 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, she thinks it is from her RA, wants a wrist splint documented as of this encounter (statuses as of 02/01/2022) [facility] History of Past illness Narrative* Problem Noted Date Resolved Date Sacroiliitis 11/21/2020 03/06/2021 Tear of medial meniscus of right knee 09/24/2019 10/02/2019 GI bleed 01/28/2019 07/31/2019 Absolute anemia 09/05/2017 02/06/2018 Overview: Added automatically from request for surgery [id number] Morbid obesity with BMI of 40.0-44.9, adult [...] 07/31/2019 Last Assessment & Plan: 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, she thinks it is from her RA, wants a wrist splint documented as of this encounter (statuses as of 02/01/2022) [facility] History of Past illness Narrative* Problem Noted Date Resolved Date Sacroiliitis 11/21/2020 03/06/2021 Tear of medial meniscus of right knee 09/24/2019 10/02/2019 GI bleed 01/28/2019 07/31/2019 Absolute anemia 09/05/2017 02/06/2018 Overview: Added automatically from request for surgery [id number] Morbid obesity with BMI of 40.0-44.9, adult [...] 07/31/2019 Last Assessment & Plan: 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, she thinks it is from her RA, wants a wrist splint documented as of this encounter (statuses as of 03/05/2022) [facility] History of Past illness Narrative* Problem Noted Date Resolved Date Sacroiliitis 11/21/2020 03/06/2021 Tear of medial meniscus of right knee 09/24/2019 10/02/2019 GI bleed 01/28/2019 07/31/2019 Absolute anemia 09/05/2017 02/06/2018 Overview: Added automatically from request for surgery [id number] Morbid obesity with BMI of 40.0-44.9, adult [...] 07/31/2019 Last Assessment & Plan: 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, she thinks it is from her RA, wants a wrist splint documented as of this encounter (statuses as of 03/12/2022) [facility] History of Past illness Narrative* Problem Noted Date Resolved Date Sacroiliitis 11/21/2020 03/06/2021 Tear of medial meniscus of right knee 09/24/2019 10/02/2019 GI bleed 01/28/2019 07/31/2019 Absolute anemia 09/05/2017 02/06/2018 Overview: Added automatically from request for surgery [id number] Morbid obesity with BMI of 40.0-44.9, adult [...] 07/31/2019 Last Assessment & Plan: 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, she thinks it is from her RA, wants a wrist splint documented as of this encounter (statuses as of 03/22/2022) [facility] History of Past illness Narrative* Problem Noted Date Resolved Date Sacroiliitis 11/21/2020 03/06/2021 Tear of medial meniscus of right knee 09/24/2019 10/02/2019 GI bleed 01/28/2019 07/31/2019 Absolute anemia 09/05/2017 02/06/2018 Overview: Added automatically from request for surgery [id number] Morbid obesity with BMI of 40.0-44.9, adult [...] 07/31/2019 Last Assessment & Plan: 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, she thinks it is from her RA, wants a wrist splint documented as of this encounter (statuses as of 03/27/2022) [facility] History of Past illness Narrative* Problem Noted Date Resolved Date Sacroiliitis 11/21/2020 03/06/2021 Tear of medial meniscus of right knee 09/24/2019 10/02/2019 GI bleed 01/28/2019 07/31/2019 Absolute anemia 09/05/2017 02/06/2018 Overview: Added automatically from request for surgery [id number] Morbid obesity with BMI of 40.0-44.9, adult [...] 07/31/2019 Last Assessment & Plan: 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, she thinks it is from her RA, wants a wrist splint documented as of this encounter (statuses as of 04/05/2022) [facility] History of Past illness Narrative* Problem Noted Date Resolved Date Sacroiliitis 11/21/2020 03/06/2021 Tear of medial meniscus of right knee 09/24/2019 10/02/2019 GI bleed 01/28/2019 07/31/2019 Absolute anemia 09/05/2017 02/06/2018 Overview: Added automatically from request for surgery [id number] Morbid obesity with BMI of 40.0-44.9, adult [...] 07/31/2019 Last Assessment & Plan: 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, she thinks it is from her RA, wants a wrist splint documented as of this encounter (statuses as of 04/19/2022) [facility] History of Past illness Narrative* Problem Noted Date Resolved Date Sacroiliitis 11/21/2020 03/06/2021 Tear of medial meniscus of right knee 09/24/2019 10/02/2019 GI bleed 01/28/2019 07/31/2019 Absolute anemia 09/05/2017 02/06/2018 Overview: Added automatically from request for surgery [id number] Morbid obesity with BMI of 40.0-44.9, adult [...] 07/31/2019 Last Assessment & Plan: 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, she thinks it is from her RA, wants a wrist splint documented as of this encounter (statuses as of 05/01/2022) [facility] History of Past illness Narrative* Problem Noted Date Resolved Date Sacroiliitis 11/21/2020 03/06/2021 Tear of medial meniscus of right knee 09/24/2019 10/02/2019 GI bleed 01/28/2019 07/31/2019 Absolute anemia 09/05/2017 02/06/2018 Overview: Added automatically from request for surgery [id number] Morbid obesity with BMI of 40.0-44.9, adult [...] 07/31/2019 Last Assessment & Plan: 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, she thinks it is from her RA, wants a wrist splint documented as of this encounter (statuses as of 05/03/2022) [facility] History of Past illness Narrative* Problem Noted Date Resolved Date Sacroiliitis 11/21/2020 03/06/2021 Tear of medial meniscus of right knee 09/24/2019 10/02/2019 GI bleed 01/28/2019 07/31/2019 Absolute anemia 09/05/2017 02/06/2018 Overview: Added automatically from request for surgery [id number] Morbid obesity with BMI of 40.0-44.9, adult [...] 07/31/2019 Last Assessment & Plan: 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, she thinks it is from her RA, wants a wrist splint documented as of this encounter (statuses as of 05/16/2022) [facility] History of Past illness Narrative* Problem Noted Date Resolved Date Sacroiliitis 11/21/2020 03/06/2021 Tear of medial meniscus of right knee 09/24/2019 10/02/2019 GI bleed 01/28/2019 07/31/2019 Absolute anemia 09/05/2017 02/06/2018 Overview: Added automatically from request for surgery [id number] Morbid obesity with BMI of 40.0-44.9, adult [...] 07/31/2019 Last Assessment & Plan: 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, she thinks it is from her RA, wants a wrist splint documented as of this encounter (statuses as of 05/17/2022) [facility] History of Past illness Narrative* Problem Noted Date Resolved Date Sacroiliitis 11/21/2020 03/06/2021 Tear of medial meniscus of right knee 09/24/2019 10/02/2019 GI bleed 01/28/2019 07/31/2019 Absolute anemia 09/05/2017 02/06/2018 Overview: Added automatically from request for surgery [id number] Morbid obesity with BMI of 40.0-44.9, adult [...] 07/31/2019 Last Assessment & Plan: 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, she thinks it is from her RA, wants a wrist splint documented as of this encounter (statuses as of 05/17/2022) [facility] History of Past illness Narrative* Problem Noted Date Resolved Date Sacroiliitis 11/21/2020 03/06/2021 Tear of medial meniscus of right knee 09/24/2019 10/02/2019 GI bleed 01/28/2019 07/31/2019 Absolute anemia 09/05/2017 02/06/2018 Overview: Added automatically from request for surgery [id number] Morbid obesity with BMI of 40.0-44.9, adult [...] 07/31/2019 Last Assessment & Plan: 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, she thinks it is from her RA, wants a wrist splint documented as of this encounter (statuses as of 05/29/2022) [facility] History of Past illness Narrative* Problem Noted Date Resolved Date Sacroiliitis 11/21/2020 03/06/2021 Tear of medial meniscus of right knee 09/24/2019 10/02/2019 GI bleed 01/28/2019 07/31/2019 Absolute anemia 09/05/2017 02/06/2018 Overview: Added automatically from request for surgery [id number] Morbid obesity with BMI of 40.0-44.9, adult [...] 07/31/2019 Last Assessment & Plan: 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, she thinks it is from her RA, wants a wrist splint documented as of this encounter (statuses as of 05/30/2022) [facility] History of Past illness Narrative* Problem Noted Date Resolved Date Sacroiliitis 11/21/2020 03/06/2021 Tear of medial meniscus of right knee 09/24/2019 10/02/2019 GI bleed 01/28/2019 07/31/2019 Absolute anemia 09/05/2017 02/06/2018 Overview: Added automatically from request for surgery [id number] Morbid obesity with BMI of 40.0-44.9, adult [...] 07/31/2019 Last Assessment & Plan: 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, she thinks it is from her RA, wants a wrist splint documented as of this encounter (statuses as of 06/12/2022) [facility] History of Past illness Narrative* Problem Noted Date Resolved Date Sacroiliitis 11/21/2020 03/06/2021 Tear of medial meniscus of right knee 09/24/2019 10/02/2019 GI bleed 01/28/2019 07/31/2019 Absolute anemia 09/05/2017 02/06/2018 Overview: Added automatically from request for surgery [id number] Morbid obesity with BMI of 40.0-44.9, adult [...] 07/31/2019 Last Assessment & Plan: 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, she thinks it is from her RA, wants a wrist splint documented as of this encounter (statuses as of 06/12/2022) [facility] History of Past illness Narrative* Problem Noted Date Resolved Date Sacroiliitis 11/21/2020 03/06/2021 Tear of medial meniscus of right knee 09/24/2019 10/02/2019 GI bleed 01/28/2019 07/31/2019 Absolute anemia 09/05/2017 02/06/2018 Overview: Added automatically from request for surgery [id number] Morbid obesity with BMI of 40.0-44.9, adult [...] 07/31/2019 Last Assessment & Plan: 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, she thinks it is from her RA, wants a wrist splint documented as of this encounter (statuses as of 06/15/2022) [facility] History of Past illness Narrative* Problem Noted Date Resolved Date Sacroiliitis 11/21/2020 03/06/2021 Tear of medial meniscus of right knee 09/24/2019 10/02/2019 GI bleed 01/28/2019 07/31/2019 Absolute anemia 09/05/2017 02/06/2018 Overview: Added automatically from request for surgery [id number] Morbid obesity with BMI of 40.0-44.9, adult [...] 07/31/2019 Last Assessment & Plan: 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, she thinks it is from her RA, wants a wrist splint documented as of this encounter (statuses as of 06/26/2022) [facility] History of Past illness Narrative* Problem Noted Date Resolved Date Sacroiliitis 11/21/2020 03/06/2021 Tear of medial meniscus of right knee 09/24/2019 10/02/2019 GI bleed 01/28/2019 07/31/2019 Absolute anemia 09/05/2017 02/06/2018 Overview: Added automatically from request for surgery [id number] Morbid obesity with BMI of 40.0-44.9, adult [...] 07/31/2019 Last Assessment & Plan: 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, she thinks it is from her RA, wants a wrist splint documented as of this encounter (statuses as of 06/27/2022) [facility] History of Past illness Narrative* Problem Noted Date Resolved Date Sacroiliitis 11/21/2020 03/06/2021 Tear of medial meniscus of right knee 09/24/2019 10/02/2019 GI bleed 01/28/2019 07/31/2019 Absolute anemia 09/05/2017 02/06/2018 Overview: Added automatically from request for surgery [id number] Morbid obesity with BMI of 40.0-44.9, adult [...] 07/31/2019 Last Assessment & Plan: 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, she thinks it is from her RA, wants a wrist splint documented as of this encounter (statuses as of 07/13/2022) [facility] History of Past illness Narrative* Problem Noted Date Resolved Date Sacroiliitis 11/21/2020 03/06/2021 Tear of medial meniscus of right knee 09/24/2019 10/02/2019 GI bleed 01/28/2019 07/31/2019 Absolute anemia 09/05/2017 02/06/2018 Overview: Added automatically from request for surgery [id number] Morbid obesity with BMI of 40.0-44.9, adult [...] 07/31/2019 Last Assessment & Plan: 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, she thinks it is from her RA, wants a wrist splint documented as of this encounter (statuses as of 07/17/2022) [facility] History of Past illness Narrative* Problem Noted Date Resolved Date Sacroiliitis 11/21/2020 03/06/2021 Tear of medial meniscus of right knee 09/24/2019 10/02/2019 GI bleed 01/28/2019 07/31/2019 Absolute anemia 09/05/2017 02/06/2018 Overview: Added automatically from request for surgery [id number] Morbid obesity with BMI of 40.0-44.9, adult [...] 07/31/2019 Last Assessment & Plan: 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, she thinks it is from her RA, wants a wrist splint documented as of this encounter (statuses as of 08/03/2022) [facility] History of Past illness Narrative* Problem Noted Date Resolved Date Sacroiliitis 11/21/2020 03/06/2021 Tear of medial meniscus of right knee 09/24/2019 10/02/2019 GI bleed 01/28/2019 07/31/2019 Absolute anemia 09/05/2017 02/06/2018 Overview: Added automatically from request for surgery [id number] Morbid obesity with BMI of 40.0-44.9, adult [...] 07/31/2019 Last Assessment & Plan: 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, she thinks it is from her RA, wants a wrist splint documented as of this encounter (statuses as of 08/08/2022) [facility] History of Past illness Narrative* Problem Noted Date Resolved Date Sacroiliitis 11/21/2020 03/06/2021 Tear of medial meniscus of right knee 09/24/2019 10/02/2019 GI bleed 01/28/2019 07/31/2019 Absolute anemia 09/05/2017 02/06/2018 Overview: Added automatically from request for surgery [id number] Morbid obesity with BMI of 40.0-44.9, adult [...] 07/31/2019 Last Assessment & Plan: 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, she thinks it is from her RA, wants a wrist splint documented as of this encounter (statuses as of 08/09/2022) [facility] History of Past illness Narrative* Problem Noted Date Resolved Date Sacroiliitis 11/21/2020 03/06/2021 Tear of medial meniscus of right knee 09/24/2019 10/02/2019 GI bleed 01/28/2019 07/31/2019 Absolute anemia 09/05/2017 02/06/2018 Overview: Added automatically from request for surgery [id number] Morbid obesity with BMI of 40.0-44.9, adult [...] 07/31/2019 Last Assessment & Plan: 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, she thinks it is from her RA, wants a wrist splint documented as of this encounter (statuses as of 08/14/2022) [facility] History of Past illness Narrative* Problem Noted Date Resolved Date Sacroiliitis 11/21/2020 03/06/2021 Tear of medial meniscus of right knee 09/24/2019 10/02/2019 GI bleed 01/28/2019 07/31/2019 Absolute anemia 09/05/2017 02/06/2018 Overview: Added automatically from request for surgery [id number] Morbid obesity with BMI of 40.0-44.9, adult [...] 07/31/2019 Last Assessment & Plan: 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, she thinks it is from her RA, wants a wrist splint documented as of this encounter (statuses as of 08/16/2022) [facility] History of Past illness Narrative* Problem Noted Date Resolved Date Sacroiliitis 11/21/2020 03/06/2021 Tear of medial meniscus of right knee 09/24/2019 10/02/2019 GI bleed 01/28/2019 07/31/2019 Absolute anemia 09/05/2017 02/06/2018 Overview: Added automatically from request for surgery [id number] Morbid obesity with BMI of 40.0-44.9, adult [...] 07/31/2019 Last Assessment & Plan: 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, she thinks it is from her RA, wants a wrist splint documented as of this encounter (statuses as of 09/03/2022) [facility] History of Past illness Narrative* Problem Noted Date Resolved Date Sacroiliitis 11/21/2020 03/06/2021 Tear of medial meniscus of right knee 09/24/2019 10/02/2019 GI bleed 01/28/2019 07/31/2019 Absolute anemia 09/05/2017 02/06/2018 Overview: Added automatically from request for surgery [id number] Morbid obesity with BMI of 40.0-44.9, adult [...] 07/31/2019 Last Assessment & Plan: 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, she thinks it is from her RA, wants a wrist splint documented as of this encounter (statuses as of 09/07/2022) [facility] History of Past illness Narrative* Problem Noted Date Resolved Date Sacroiliitis 11/21/2020 03/06/2021 Tear of medial meniscus of right knee 09/24/2019 10/02/2019 GI bleed 01/28/2019 07/31/2019 Absolute anemia 09/05/2017 02/06/2018 Overview: Added automatically from request for surgery [id number] Morbid obesity with BMI of 40.0-44.9, adult [...] 07/31/2019 Last Assessment & Plan: 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, she thinks it is from her RA, wants a wrist splint documented as of this encounter (statuses as of 09/21/2022) [facility] History of Past illness Narrative* Problem Noted Date Resolved Date Sacroiliitis 11/21/2020 03/06/2021 Tear of medial meniscus of right knee 09/24/2019 10/02/2019 GI bleed 01/28/2019 07/31/2019 Absolute anemia 09/05/2017 02/06/2018 Overview: Added automatically from request for surgery [id number] Morbid obesity with BMI of 40.0-44.9, adult [...] 07/31/2019 Last Assessment & Plan: 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, she thinks it is from her RA, wants a wrist splint documented as of this encounter (statuses as of 10/18/2022) [facility] History of Past illness Narrative* Problem Noted Date Resolved Date Sacroiliitis 11/21/2020 03/06/2021 Tear of medial meniscus of right knee 09/24/2019 10/02/2019 GI bleed 01/28/2019 07/31/2019 Absolute anemia 09/05/2017 02/06/2018 Overview: Added automatically from request for surgery [id number] Morbid obesity with BMI of 40.0-44.9, adult [...] 07/31/2019 Last Assessment & Plan: 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, she thinks it is from her RA, wants a wrist splint documented as of this encounter (statuses as of 10/25/2022) [facility] History of Past illness Narrative* Problem Noted Date Resolved Date Sacroiliitis 11/21/2020 03/06/2021 Tear of medial meniscus of right knee 09/24/2019 10/02/2019 GI bleed 01/28/2019 07/31/2019 Absolute anemia 09/05/2017 02/06/2018 Overview: Added automatically from request for surgery [id number] Morbid obesity with BMI of 40.0-44.9, adult [...] 07/31/2019 Last Assessment & Plan: 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, she thinks it is from her RA, wants a wrist splint documented as of this encounter (statuses as of 11/01/2022) [facility] History of Past illness Narrative* Problem Noted Date Resolved Date Sacroiliitis 11/21/2020 03/06/2021 Tear of medial meniscus of right knee 09/24/2019 10/02/2019 GI bleed 01/28/2019 07/31/2019 Absolute anemia 09/05/2017 02/06/2018 Overview: Added automatically from request for surgery [id number] Morbid obesity with BMI of 40.0-44.9, adult [...] 07/31/2019 Last Assessment & Plan: 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, she thinks it is from her RA, wants a wrist splint documented as of this encounter (statuses as of 11/02/2022) [facility] History of Past illness Narrative* Problem Noted Date Resolved Date Sacroiliitis 11/21/2020 03/06/2021 Tear of medial meniscus of right knee 09/24/2019 10/02/2019 GI bleed 01/28/2019 07/31/2019 Absolute anemia 09/05/2017 02/06/2018 Overview: Added automatically from request for surgery [id number] Morbid obesity with BMI of 40.0-44.9, adult [...] 07/31/2019 Last Assessment & Plan: 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, she thinks it is from her RA, wants a wrist splint documented as of this encounter (statuses as of 11/20/2022) [facility] History of Past illness Narrative* Problem Noted Date Resolved Date Sacroiliitis 11/21/2020 03/06/2021 Tear of medial meniscus of right knee 09/24/2019 10/02/2019 GI bleed 01/28/2019 07/31/2019 Absolute anemia 09/05/2017 02/06/2018 Overview: Added automatically from request for surgery [id number] Morbid obesity with BMI of 40.0-44.9, adult [...] 07/31/2019 Last Assessment & Plan: 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, she thinks it is from her RA, wants a wrist splint documented as of this encounter (statuses as of 11/26/2022) [facility] History of Past illness Narrative* Problem Noted Date Resolved Date Sacroiliitis 11/21/2020 03/06/2021 Tear of medial meniscus of right knee 09/24/2019 10/02/2019 GI bleed 01/28/2019 07/31/2019 Absolute anemia 09/05/2017 02/06/2018 Overview: Added automatically from request for surgery [id number] Morbid obesity with BMI of 40.0-44.9, adult [...] 07/31/2019 Last Assessment & Plan: 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, she thinks it is from her RA, wants a wrist splint documented as of this encounter (statuses as of 12/26/2022) [facility] History of Past illness Narrative* Problem Noted Date Resolved Date Sacroiliitis 11/21/2020 03/06/2021 Tear of medial meniscus of right knee 09/24/2019 10/02/2019 GI bleed 01/28/2019 07/31/2019 Absolute anemia 09/05/2017 02/06/2018 Overview: Added automatically from request for surgery [id number] Morbid obesity with BMI of 40.0-44.9, adult [...] 07/31/2019 Last Assessment & Plan: 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, she thinks it is from her RA, wants a wrist splint documented as of this encounter (statuses as of 12/26/2022) [facility] History of Past illness Narrative* Problem Noted Date Resolved Date Sacroiliitis 11/21/2020 03/06/2021 Tear of medial meniscus of right knee 09/24/2019 10/02/2019 GI bleed 01/28/2019 07/31/2019 Absolute anemia 09/05/2017 02/06/2018 Overview: Added automatically from request for surgery [id number] Morbid obesity with BMI of 40.0-44.9, adult [...] 07/31/2019 Last Assessment & Plan: 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, she thinks it is from her RA, wants a wrist splint documented as of this encounter (statuses as of 01/02/2023) [facility] History of Past illness Narrative* Problem Noted Date Resolved Date Sacroiliitis 11/21/2020 03/06/2021 Tear of medial meniscus of right knee 09/24/2019 10/02/2019 GI bleed 01/28/2019 07/31/2019 Absolute anemia 09/05/2017 02/06/2018 Overview: Added automatically from request for surgery [id number] Morbid obesity with BMI of 40.0-44.9, adult [...] 07/31/2019 Last Assessment & Plan: 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, she thinks it is from her RA, wants a wrist splint documented as of this encounter (statuses as of 02/01/2023) [facility] History of Past illness Narrative* Problem Noted Date Diagnosed Date Resolved Date Sacroiliitis 11/21/2020 03/06/2021 Tear of medial meniscus of right knee 09/24/2019 10/02/2019 GI bleed 01/28/2019 07/31/2019 Absolute anemia 09/05/2017 02/06/2018 Overview: Added automatically from request for surgery [id number] Morbid obesity with BMI of 40.0-44.9, adult [...] 07/31/2019 Last Assessment & Plan: 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, she thinks it is from her RA, wants a wrist splint documented as of this encounter (statuses as of 04/11/2023) [facility] History of Past illness Narrative* Problem Noted Date Diagnosed Date Resolved Date Sacroiliitis 11/21/2020 03/06/2021 Tear of medial meniscus of right knee 09/24/2019 10/02/2019 GI bleed 01/28/2019 07/31/2019 Absolute anemia 09/05/2017 02/06/2018 Overview: Added automatically from request for surgery [id number] Morbid obesity with BMI of 40.0-44.9, adult [...] Beata Nolna about this. Mycoplasma pneumonia 03/23/2014 014 Overview: [...] 07/31/2019 Last Assessment & Plan: 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, she thinks it is from her RA, wants a wrist splint documented as of this encounter (statuses as of 04/15/2023) [facility] History of Past illness Narrative* Problem Noted Date Diagnosed Date Resolved Date Sacroiliitis 11/21/2020 03/06/2021 Tear of medial meniscus of right knee 09/24/2019 10/02/2019 GI bleed 01/28/2019 07/31/2019 Absolute anemia 09/05/2017 02/06/2018 Overview: Added automatically from request for surgery [id number] Morbid obesity with BMI of 40.0-44.9, adult [...] 07/31/2019 Last Assessment & Plan: 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, she thinks it is from her RA, wants a wrist splint documented as of this encounter (statuses as of 04/26/2023) [facility] History of Past illness Narrative* Problem Noted Date Diagnosed Date Resolved Date Sacroiliitis 11/21/2020 03/06/2021 Tear of medial meniscus of right knee 09/24/2019 10/02/2019 GI bleed 01/28/2019 07/31/2019 Absolute anemia 09/05/2017 02/06/2018 Overview: Added automatically from request for surgery [id number] Morbid obesity with BMI of 40.0-44.9, adult [...] 07/31/2019 Last Assessment & Plan: 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, she thinks it is from her RA, wants a wrist splint documented as of this encounter (statuses as of 04/26/2023) [facility] History of Past illness Narrative* Problem Noted Date Diagnosed Date Resolved Date Sacroiliitis 11/21/2020 03/06/2021 Tear of medial meniscus of right knee 09/24/2019 10/02/2019 GI bleed 01/28/2019 07/31/2019 Absolute anemia 09/05/2017 02/06/2018 Overview: Added automatically from request for surgery [id number] Morbid obesity with BMI of 40.0-44.9, adult [...] 07/31/2019 Last Assessment & Plan: 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, she thinks it is from her RA, wants a wrist splint documented as of this encounter (statuses as of 04/30/2023) [facility] History of Past illness Narrative* Problem Noted Date Diagnosed Date Resolved Date Sacroiliitis 11/21/2020 03/06/2021 Tear of medial meniscus of right knee 09/24/2019 10/02/2019 GI bleed 01/28/2019 07/31/2019 Absolute anemia 09/05/2017 02/06/2018 Overview: Added automatically from request for surgery [id number] Morbid obesity with BMI of 40.0-44.9, adult [...] 07/31/2019 Last Assessment & Plan: 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, she thinks it is from her RA, wants a wrist splint documented as of this encounter (statuses as of 05/21/2023) [facility] History of Past illness Narrative* Problem Noted Date Diagnosed Date Resolved Date Sacroiliitis 11/21/2020 03/06/2021 Tear of medial meniscus of right knee 09/24/2019 10/02/2019 GI bleed 01/28/2019 07/31/2019 Absolute anemia 09/05/2017 02/06/2018 Overview: Added automatically from request for surgery [id number] Morbid obesity with BMI of 40.0-44.9, adult [...] 07/31/2019 Last Assessment & Plan: 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, she thinks it is from her RA, wants a wrist splint documented as of this encounter (statuses as of 05/28/2023) [facility] History of Past illness Narrative* Problem Noted Date Diagnosed Date Resolved Date Sacroiliitis 11/21/2020 03/06/2021 Tear of medial meniscus of right knee 09/24/2019 10/02/2019 GI bleed 01/28/2019 07/31/2019 Absolute anemia 09/05/2017 02/06/2018 Overview: Added automatically from request for surgery [id number] Morbid obesity with BMI of 40.0-44.9, adult [...] 07/31/2019 Last Assessment & Plan: 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, she thinks it is from her RA, wants a wrist splint documented as of this encounter (statuses as of 06/03/2023) [facility] History of Past illness Narrative* Problem Noted Date Diagnosed Date Resolved Date Sacroiliitis 11/21/2020 03/06/2021 Tear of medial meniscus of right knee 09/24/2019 10/02/2019 GI bleed 01/28/2019 07/31/2019 Absolute anemia 09/05/2017 02/06/2018 Overview: Added automatically from request for surgery [id number] Morbid obesity with BMI of 40.0-44.9, adult [...] 07/31/2019 Last Assessment & Plan: 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, she thinks it is from her RA, wants a wrist splint documented as of this encounter (statuses as of 06/03/2023) [facility] History of Past illness Narrative* Problem Noted Date Diagnosed Date Resolved Date Sacroiliitis 11/21/2020 03/06/2021 Tear of medial meniscus of right knee 09/24/2019 10/02/2019 GI bleed 01/28/2019 07/31/2019 Absolute anemia 09/05/2017 02/06/2018 Overview: Added automatically from request for surgery [id number] Morbid obesity with BMI of 40.0-44.9, adult [...] 07/31/2019 Last Assessment & Plan: 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, she thinks it is from her RA, wants a wrist splint documented as of this encounter (statuses as of 06/19/2023) [facility] History of Past illness Narrative* Problem Noted Date Diagnosed Date Resolved Date Sacroiliitis 11/21/2020 03/06/2021 Tear of medial meniscus of right knee 09/24/2019 10/02/2019 GI bleed 01/28/2019 07/31/2019 Absolute anemia 09/05/2017 02/06/2018 Overview: Added automatically from request for surgery [id number] Morbid obesity with BMI of 40.0-44.9, adult [...] 07/31/2019 Last Assessment & Plan: 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, she thinks it is from her RA, wants a wrist splint documented as of this encounter (statuses as of 07/04/2023) [facility] History of Past illness Narrative* Problem Noted Date Diagnosed Date Resolved Date Sacroiliitis 11/21/2020 03/06/2021 Tear of medial meniscus of right knee 09/24/2019 10/02/2019 GI bleed 01/28/2019 07/31/2019 Absolute anemia 09/05/2017 02/06/2018 Overview: Added automatically from request for surgery [id number] Morbid obesity with BMI of 40.0-44.9, adult [...] 07/31/2019 Last Assessment & Plan: 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, she thinks it is from her RA, wants a wrist splint documented as of this encounter (statuses as of 08/30/2023) [facility] History of Past illness Narrative* Problem Noted Date Diagnosed Date Resolved Date Sacroiliitis 11/21/2020 03/06/2021 Tear of medial meniscus of right knee 09/24/2019 10/02/2019 GI bleed 01/28/2019 07/31/2019 Absolute anemia 09/05/2017 02/06/2018 Overview: Added automatically from request for surgery [id number] Morbid obesity with BMI of 40.0-44.9, adult [...] 07/31/2019 Last Assessment & Plan: 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, she thinks it is from her RA, wants a wrist splint documented as of this encounter (statuses as of 09/16/2023) [facility] History of Past illness Narrative* Problem Noted Date Diagnosed Date Resolved Date Sacroiliitis 11/21/2020 03/06/2021 Tear of medial meniscus of right knee 09/24/2019 10/02/2019 GI bleed 01/28/2019 07/31/2019 Absolute anemia 09/05/2017 02/06/2018 Overview: Added automatically from request for surgery [id number] Morbid obesity with BMI of 40.0-44.9, adult [...] 07/31/2019 Last Assessment & Plan: 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, she thinks it is from her RA, wants a wrist splint documented as of this encounter (statuses as of 09/19/2023) [facility] History of Past illness Narrative* Problem Noted Date Diagnosed Date Resolved Date Sacroiliitis 11/21/2020 03/06/2021 Tear of medial meniscus of right knee 09/24/2019 10/02/2019 GI bleed 01/28/2019 07/31/2019 Absolute anemia 09/05/2017 02/06/2018 Overview: Added automatically from request for surgery [id number] Morbid obesity with BMI of 40.0-44.9, adult [...] 07/31/2019 Last Assessment & Plan: 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, she thinks it is from her RA, wants a wrist splint documented as of this encounter (statuses as of 09/26/2023) [facility] History of Past illness Narrative* Problem Noted Date Diagnosed Date Resolved Date Sacroiliitis 11/21/2020 03/06/2021 Tear of medial meniscus of right knee 09/24/2019 10/02/2019 GI bleed 01/28/2019 07/31/2019 Absolute anemia 09/05/2017 02/06/2018 Overview: Added automatically from request for surgery [id number] Morbid obesity with BMI of 40.0-44.9, adult [...] 07/31/2019 Last Assessment & Plan: 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, she thinks it is from her RA, wants a wrist splint documented as of this encounter (statuses as of 10/15/2023) [facility] History of Past illness Narrative* Problem Noted Date Diagnosed Date Resolved Date Sacroiliitis 11/21/2020 03/06/2021 Tear of medial meniscus of right knee 09/24/2019 10/02/2019 GI bleed 01/28/2019 07/31/2019 Absolute anemia 09/05/2017 02/06/2018 Overview: Added automatically from request for surgery [id number] Morbid obesity with BMI of 40.0-44.9, adult [...] 07/31/2019 Last Assessment & Plan: 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, she thinks it is from her RA, wants a wrist splint documented as of this encounter (statuses as of 10/18/2023) [facility] History of Past illness Narrative* Problem Noted Date Diagnosed Date Resolved Date Sacroiliitis 11/21/2020 03/06/2021 Tear of medial meniscus of right knee 09/24/2019 10/02/2019 GI bleed 01/28/2019 07/31/2019 Absolute anemia 09/05/2017 02/06/2018 Overview: Added automatically from request for surgery [id number] Morbid obesity with BMI of 40.0-44.9, adult [...] 07/31/2019 Last Assessment & Plan: 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, she thinks it is from her RA, wants a wrist splint documented as of this encounter (statuses as of 11/12/2023) [facility]agen [facility] Note Date/Time March 02, 2025 10: 45am [facility] Medical Records Department [address] [place] [address] Anesthesia Postop Eval I 03/02/251044 MR#: [id number] Acct: [id number] Name: MARIMAR WANG Rep #:[id number] : 1960 64 From: Quang NATHAN PCP: STEFANO ArriolaC Status:REG S DC Y Race: C Location: [place] [address] Anesthesia: Postop Eval I Current Vital Signs Temperature: 97 F Pulse Rate: 78 Blood Pressure: 107/64 Respiratory Rate: 16 Pulse Ox: 96 Assessment Airway patent: Yes Spontaneous unlabored respirations: Yes nausea: No Vomiting: No Anesthesia Complication: No Fluid Hydration Crystalloid volume administer (ml): 300 Total IV fluid infused: 300 Progress Note Anesthesia document: Postop Eval 1 completed: Yes 03/02/251044 <Electronically signed by Quang Hagen CRNA> Date _ Quang Hagen CRNA Cosigner Signature: Date CC: ~ Signed [facility] Work Phone: Evaluation note* Diagnosis Rheumatoid arthritis involving multiple sites, unspecified whether rheumatoid factor present (HCC) Other osteoporosis with current pathological fracture with malunion, subsequent [facility] Anxiety and depression Dysthymic disorder [facility] Other osteoporosis with current pathological fracture with malunion, subsequent encounter- Primary Rheumatoid arthritis involving multiple sites, unspecified whether rheumatoid factor present (HCC) [facility] Other osteoporosis with current pathological fracture with malunion, subsequent encounter- Primary Rheumatoid arthritis involving multiple sites, unspecified whether rheumatoid factor present (HCC) [facility] Radiculopathy, lumbar region Thoracic or lumbosacral neuritis or radiculitis, unspecified [facility] SOB (shortness of breath) Shortness of breath [facility] Diagnosis Class 1 obesity with body mass index (BMI) of 34.0 to 34.9 in adult Hyperlipidemia with target LDL less than 130 Other and unspecified hyperlipidemia [facility] Encounter for screening mammogram for breast cancer [facility] Vitamin D deficiency Unspecified vitamin D deficiency Rheumatoid arthritis involving multiple sites with positive rheumatoid factor (HCC) [facility] Diagnosis Lumbar spondylosis- Primary Lumbosacral spondylosis without myelopathy Chronic bilateral low back pain without sciatica Myofascial pain Mylagia and myositis, unspecified Fibromyalgia Mylagia and myositis, unspecified Lumbar spondylosis Lumbosacral spondylosis without myelopathy [facility] Diagnosis Lumbar spondylosis- Primary Lumbosacral spondylosis without myelopathy Lumbar spondylosis Lumbosacral spondylosis without myelopathy [facility] Diagnosis Other osteoporosis with current pathological fracture with malunion, subsequent encounter- Primary Rheumatoid arthritis involving multiple sites, unspecified whether rheumatoid factor present (HCC) [facility] Diagnosis High risk medication use Encounter for long-term (current) use of other medications Rheumatoid arthritis involving multiple sites with positive rheumatoid factor (HCC) Localized osteoporosis without current pathological fracture [facility] Other osteoporosis with current pathological fracture with malunion, subsequent encounter- Primary Rheumatoid arthritis involving multiple sites, unspecified whether rheumatoid factor present (HCC) [facility] Diagnosis Radiculopathy, lumbar region Thoracic or lumbosacral neuritis or radiculitis, unspecified [facility] Diagnosis Other osteoporosis with current pathological fracture with malunion, subsequent encounter- Primary Rheumatoid arthritis involving multiple sites, unspecified whether rheumatoid factor present (HCC) [facility] Diagnosis Exposure to 2019 novel coronavirus- Primary [facility] Diagnosis COVID- Primary [facility] Diagnosis Radiculopathy, lumbar region Thoracic or lumbosacral neuritis or radiculitis, unspecified [facility] Diagnosis High risk medication use Encounter for long-term (current) use of other medications Rheumatoid arthritis involving multiple sites with positive rheumatoid factor (HCC) Localized osteoporosis without current pathological fracture [facility] Diagnosis Localized osteoporosis without current pathological [...] vitamin D deficiency [facility] Diagnosis Pain in left hip Pain in joint, pelvic region and thigh Fall, initial encounter [facility] Diagnosis Other osteoporosis with current pathological fracture with malunion, subsequent encounter- Primary Rheumatoid arthritis involving multiple sites, unspecified whether rheumatoid factor present (HCC) [facility] Diagnosis Chronic bilateral low back pain without sciatica- Primary Lumbar spondylosis Lumbosacral spondylosis without myelopathy Myofascial pain Mylagia and myositis, unspecified Fibromyalgia Mylagia and myositis, unspecified Sacroiliitis (HCC) Sacroiliitis, not elsewhere classified [facility] Diagnosis Other osteoporosis with current pathological fracture with malunion, subsequent encounter- Primary Rheumatoid arthritis involving multiple sites, unspecified whether rheumatoid factor present (HCC) [facility] Diagnosis Onset Date Resolution Status Acute bronchitis acute Contact with or suspected ex posure to other viral communicable disease acute Osteoarthritis of right knee acute Other instability, right knee acute Right knee pain acute Acute pharyngitis, unspecified acute URI (upper respiratory infection) acute [facility] Work Phone: Evaluation note* Diagnosis High risk medication use Encounter for long-term (current) use of other medications Rheumatoid arthritis involving multiple sites with positive rheumatoid factor ([facility]) Localized osteoporosis without current pathological fracture [facility] Diagnosis Onset Date Resolution Status Acute bronchitis acute Contact with or suspected ex posure to other viral communicable disease acute Osteoarthritis of right knee acute Other instability, right knee acute Right knee pain acute Acute pharyngitis, unspecified acute URI (upper respiratory infection) acute Diarrhea chronic Nausea [facility] Work Phone: Evaluation note* Diagnosis Pain in joint, multiple sites- Primary Osteoporosis, unspecified osteoporosis type, unspecified pathological fracture presence [facility] Diagnosis Rheumatoid arthritis involving multiple sites, unspecified whether rheumatoid factor present ([facility])- Primary Vitamin D deficiency Unspecified vitamin D deficiency Other osteoporosis with current pathological fracture with malunion, subsequent encounter [facility] Diagnosis Anxiety and depression Dysthymic disorder [facility] Diagnosis Onset Date Resolution Status Osteoarthritis of right knee acute Other instability, right knee acute Right knee pain acute Acute pharyngitis, unspecified acute URI (upper respiratory infection) acute Diarrhea chronic Nausea chronic Internal derangement of right knee acute Osteoarthritis of right knee acute Pain in right pelaez acute Diarrhea chronic Nausea chronic [facility] Work Phone: Evaluation note* Diagnosis Onset [...] acute Right knee meniscal tear acu te [facility] Work Phone: Evaluation note* Diagnosis High risk medication use Encounter for long-term (current) use of other medications Rheumatoid arthritis involving multiple sites with positive rheumatoid factor (HCC) Localized osteoporosis without current pathological fracture [facility] High risk medication use Encounter for long-term (current) use of other medications Rheumatoid arthritis involving multiple sites with positive rheumatoid factor (HCC) Localized osteoporosis without current pathological fracture [facility] Diagnosis Onset Date Resolution Status Diarrhea chronic Nausea chronic Internal derangement of right knee acute Osteoarthritis of right knee acute Pain in right pelaez acute Diarrhea chronic Nausea chronic Internal derangement of right knee acute Osteoarthritis of right knee acute Right knee meniscal tear acu te Fibromyalgia acute Rheumatoid arthritis acute Right knee DJD acute [facility] Work Phone: Evaluation note* Diagnosis Onset Date Resolution Status Internal derangement of right knee acute Osteoarthritis of right knee acute Pain in right pelaez acute Diarrhea chronic Nausea chronic Internal derangement of right knee acute Osteoarthritis of right knee acute Right knee meniscal tear acu te Fibromyalgia acute Rheumatoid arthritis acute Right knee DJD acute S/P total knee arthroplasty acute [facility] Work Phone: Evaluation note* Diagnosis High risk medication use Encounter for long-term (current) use of other medications Rheumatoid arthritis involving multiple sites with positive rheumatoid factor (HCC) Localized osteoporosis without current pathological fracture [facility] Rheumatoid arthritis involving multiple sites, unspecified whether rheumatoid factor present (HCC)- Primary Vitamin D deficiency Unspecified vitamin D deficiency Localized osteoporosis without current pathological fracture [facility] Osteoporosis, unspecified- Primary [facility] Diagnosis Vitamin D deficiency Unspecified vitamin D deficiency Rheumatoid arthritis involving multiple sites with positive rheumatoid factor (HCC) [facility] Rheumatoid arthritis involving multiple sites with positive rheumatoid factor (HCC)- Primary High risk medication use Encounter for long-term (current) use of other medications Localized osteoporosis without current pathological fracture Vitamin D deficiency Unspecified vitamin D deficiency [facility] Diagnosis Rheumatoid arthritis involving multiple sites, unspecified whether rheumatoid factor present (HCC) [facility] Right [facility] pain, unspecified chronicity [facility] Diagnosis Localized osteoporosis without current pathological fracture [facility] Diagnosis Rheumatoid arthritis involving multiple sites, unspecified whether rheumatoid factor present (HCC) [facility] Diagnosis Onset Date Resolution Status Orthopedic aftercare acute Diarrhea [facility] Work Phone: Evaluation note* Diagnosis Rheumatoid arthritis involving multiple sites, unspecified whether rheumatoid factor present (HCC) [facility] Diagnosis Onset Date Resolution Status Diarrhea chronic [facility] Work Phone: Evaluation note* Diagnosis High risk medication use Encounter for long-term (current) use of other medications Rheumatoid arthritis involving multiple sites with positive rheumatoid factor (HCC) Localized osteoporosis without current pathological fracture [facility] Diagnosis Onset Date Resolution Status Diarrhea chronic Right knee pain acute [facility] Work Phone: Evaluation note* Diagnosis Rheumatoid arthritis involving multiple sites, unspecified whether rheumatoid factor present (HCC) Osteoporosis, unspecified Vitamin D deficiency Unspecified vitamin D deficiency [facility] Diagnosis Rheumatoid arthritis involving multiple sites with positive rheumatoid factor (HCC)- Primary High risk medication use Encounter for long-term (current) use of other medications Localized osteoporosis without current pathological fracture Vitamin D deficiency Unspecified vitamin D deficiency [facility] Diagnosis Rheumatoid arthritis involving multiple sites with positive rheumatoid factor (HCC)- Primary [facility] Diagnosis High risk medication use Encounter for long-term (current) use of other medications Rheumatoid arthritis involving multiple sites with positive rheumatoid factor (HCC) Localized osteoporosis without current pathological fracture [facility] Diagnosis Rheumatoid arthritis involving multiple sites with positive rheumatoid factor (HCC)- Primary [facility] Diagnosis Rheumatoid arthritis involving multiple sites with positive rheumatoid factor (HCC)- Primary [facility] Diagnosis Establishing care with new [...] factor (HCC)- [facility] Establishing care with new [...] Post-COVID chronic fatigue [facility] Establishing care with new [...] nonspecific skin eruption [facility] Establishing care with new [...] factor (HCC)- Primary [facility] Diagnosis Establishing care with new [...] anemia type- Primary [facility] Diagnosis Establishing care with new [...] anemia type- Primary [facility] Establishing care with new [...] current pathological fracture [facility] Establishing care with new [...] specified intestinal malabsorption [facility] Establishing care with new [...] specified intestinal malabsorption [facility] in [facility] Diagnosis Establishing care with new [...] specified intestinal malabsorption [facility] in [facility] Establishing care with new [...] pathological fracture presence [facility] Diagnosis Establishing care with new [...] or rectal pain [facility] Diagnosis Establishing care with new doctor, [...] current pathological fracture [facility] Establishing care with new [...] blood loss (chronic) [facility] Establishing care with new [...] anus, unspecified site [facility] Establishing care with new [...] vitamin D deficiency [facility] Diagnosis Establishing care with new [...] anus, unspecified site [facility] Diagnosis Establishing care with new [...] anus, unspecified site [facility] Diagnosis Establishing care with new [...] anus, unspecified site [facility] Establishing care with new [...] Pain Generalized pain [facility] Diagnosis Establishing care with new doctor, [...] Primary Counseling NOS [facility] Diagnosis Establishing care with new doctor, [...] deficiency anemia type [facility] Diagnosis Establishing care with new doctor, [...] for breast cancer [facility] Establishing care with new [...] for breast cancer [facility] Establishing care with new [...] recurrent major depressive disorder (HCC) Anal cancer ([facility])- Primary Malignant neoplasm of anus, unspecified site [facility] Establishing care with new [...] anus, unspecified site [facility] Diagnosis Establishing care with new [...] anus, unspecified site [facility] Diagnosis Establishing care with new [...] recurrent major depressive disorder (HCC) Anal cancer ([facility])- Primary Malignant neoplasm of anus, unspecified site [facility] Diagnosis Establishing care with new [...] anus, unspecified site [facility] Diagnosis Establishing care with new [...] anus, unspecified site [facility] Diagnosis Establishing care with new [...] anus, unspecified site [facility] Establishing care with new [...] and mucositis, unspecified [facility] Establishing care with new [...] PVC's (premature ventricular contractions) Other premature beats YT (dyspnea on exertion) Other dyspnea and respiratory [...] anus, unspecified site [facility] Establishing care with new [...] recurrent major depressive disorder (HCC) Anal cancer ([facility])- Primary Malignant neoplasm of anus, unspecified site [facility] Establishing care with new [...] recurrent major depressive disorder (HCC) Anal cancer ([facility])- Primary Malignant neoplasm of anus, unspecified site [facility] Establishing care with new [...] swelling- Primary Swelling of limb Anal cancer ([facility]) Malignant neoplasm of anus, unspecified site PICC (peripherally inserted central catheter) in place Fitting and adjustment of vascular catheter [facility] Establishing care with new [...] anus, unspecified site [facility] Diagnosis Establishing care with new [...] recurrent major depressive disorder (HCC) Anal cancer ([facility])- Primary Malignant neoplasm of anus, unspecified site [facility] Diagnosis Establishing care with new [...] Urinary urgency Urgency of urination Anal cancer (HCC) Malignant neoplasm of anus, unspecified site [facility] Diagnosis Establishing care with new [...] anus, unspecified site [facility] Diagnosis Establishing care with new doctor, [...] anus, unspecified site [facility] Diagnosis Establishing care with new [...] disorders of bladder [facility] Diagnosis Establishing care with new [...] anus, unspecified site [facility] Diagnosis Establishing care with new doctor, [...] anus, unspecified site [facility] Diagnosis Establishing care with new [...] anus, unspecified site [facility] Diagnosis Establishing care with new doctor, [...] of recurrent major depressive disorder Anal cancer ([facility])- Primary Malignant neoplasm of anus, unspecified site [facility] Diagnosis Establishing care with new [...] anus, unspecified site [facility] Diagnosis Establishing care with new [...] Nausea with vomiting [facility] Diagnosis Establishing care with new [...] of recurrent major depressive disorder Anal cancer ([facility])- Primary Malignant neoplasm of anus, unspecified site [facility] Diagnosis Establishing care with new [...] anus, unspecified site [facility] Diagnosis Establishing care with new [...] anus, unspecified site [facility] Diagnosis Establishing care with new [...] current pathological fracture [facility] Diagnosis Establishing care with new [...] anus, unspecified site [facility] Diagnosis Establishing care with new doctor, [...] anus, unspecified site [facility] Diagnosis Establishing care with new doctor, [...] current pathological fracture [facility] Diagnosis Establishing care with new [...] current pathological fracture [facility] Diagnosis Establishing care with new [...] current pathological fracture [facility] Diagnosis Onset Date Resolution Status Admit Date Crohn disease acute January 14, 2025 8:19am Irritable bowel syndrome wit h diarrhea acute January 14, 2025 8:19am [facility] Work Phone: Evaluation note* Diagnosis Establishing [...] disease without complication, unspecified gastrointestinal tract location ([facility])- Primary Irritable bowel syndrome with diarrhea Irritable bowel syndrome [facility] Diagnosis Establishing care with new [...] anus, unspecified site [facility] Diagnosis Establishing care with new [...] anus, unspecified site [facility] Diagnosis Establishing care with new [...] involving multiple sites with positive rheumatoid factor ([facility]) Vitamin D deficiency Unspecified vitamin D deficiency [facility] Diagnosis Establishing care with new [...] involving multiple sites with positive rheumatoid factor ([facility]) [facility] Diagnosis Establishing care with new [...] involving multiple sites with positive rheumatoid factor ([facility]) [facility] Establishing care with new [...] Mild episode of recurrent major depressive disorder Iron 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) [facility] Establishing care with new [...] major depressive disorder Malignant neoplasm of anus (HCC)- Primary Malignant neoplasm of anus, unspecified site Iron 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) [facility] Author Andrez Pitts [facility] November 06, 2022 2:47pm Note Date/Time November 06, 2022 2:4 7pm [facility] Medical Records Department [address] [place] [address] History & Physical Exam 11/06/22 1447 MR#: [id number] Acct: [id number] Name: MARIMAR WANG Rep #:[id number] : 1960 62 From: Andrez Pitts DO PCP: [facility] Arriola Status:REG S DC Location: [place] [address] History and Physical Date of Admission: 11/06/22 ?62 F who presents to the office today to transfer care from another GI practice. She has chronic nausea, chronic diarrhea. In 2018 she had fundoplication for very large hiatal hernia that was in her chest and was causing dyspnea, surgery was done at [facility]. Her surgeon sent her to [facility] for chronic nausea which began after fundoplication, [...] HIDA scan, US, gastric emptying study at [facility], we'll request records 08/2017 EGD normal [...] Mood: euthymic mood Quality Reporting Tobacco Screening ([facility]) Smoking Status: Former smoker Assessment and [...] Pitts DO> Cosigner Signature (if applicable): CC: [employer]GER[employer] Julio Arriaga; Andrez Pitts DO~ Signed [facility] Work Phone: History and physical note Author Kenya Garcia [facility] Note Date/Time March 02, 2025 10: 14am [facility] Medical Records Department [address] [place] [address] History & Physical Exam 03/02/25 1008 MR#: [id number] Acct: [id number] Name: MARIMAR WANG Rep #:[id number] : 1960 64 From: Kenya Garcia MD PCP: [facility] Arriola Status:REG S DC Location: [place] [address] HPI - General General Date of Admission: 03/02/25 Date of Service: 03/02/25 Chief Complaint: Flexible sigmoidoscopy HPI Narrative MARIMAR WANG, is a 64 F who presents for flex sig to evaluate area of 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 She denies any new issues or problems. She has recently undergone chemo and radiation with good results. Today is to biopsy for any residual disease [facility] Medical History Cancer Walker as ambulation aid DVT (deep [...] Limb weakness Asthma Anemia Arthritis Home Medications ?Medication ?Instructions ?Recorded ?Last Taken ?Type albuterol sulfate 90 mcg/actuation 2 puff inhalation Q 4H PRN PRN 03/13/15 Unknown History aerosol inhaler Shortness Of Breath fluoxetine 20 mg capsule 60 mg PO QHS MENTAL HEALTH 0 12/13/15 09/01/24 History peg [id number] 1 1 drp OP 4X/DAY DRY EY ES 11/13/17 03/19/24 History %-0.2 %-0.2 % eye drops (Dry Eye Relief) leflunomide 20 mg tablet (Arava) 20 mg PO QHS RA 03/2209/01/24 History amlodipine 5 mg tablet 7.5 mg PO QHS BP 08/15/22 06:30 History mometasone 50 mcg/actuation nasal 2 spray intranasal . QAM ALLERGIES 08/15/22 09/01/24 History spray mecobalamin (vitamin B12) 1,000 1,000 mcg sublingual Q HS SUPPLEMENT 12/06/22 09/01/24 History mcg disintegrating tablet,sublingual abatacept 50 mg/0.4 mL 50 mg subcut QMONTH RA 12/1702/18/25 History subcutaneous syringe (Orencia) acetaminophen 500 mg tablet 1,000 mg PO Q6H PRN fever or pain 11/15/23 09/01/24 History atorvastatin 80 mg tablet 80 mg PO QHS 11/15/23 History meclizine 25 mg tablet 25 mg PO DAILY PRN PRN dizzi ness 03/17/24 03/02/25 06:30 History bupropion HCl (smoking deter) 150 150 mg PO QHS 09/01/24 History mg tablet,12 hr sustained-release(smoking deterrent) apixaban 5 mg (74 tabs) tablets in 10 mg PO Q12H 10/24 Unknown History a dose pack ([employer] DVT-PE Treat 30D Start) cholecalciferol (vitamin D3) 1,250 1,250 mcg PO Q14D 0 10/24/24 Unknown History mcg (50,000 unit) capsule furosemide 20 mg tablet 20 mg PO DAILY 10/24/24 Unkn own History alprazolam 1 mg tablet 1 mg PO TID 30 days #90 tabs 12/02/24 Unknown Rx dicyclomine 10 mg capsule 10 mg PO TID PRN for abdomin al 01/25/25 03/02/25 06:30 Rx pain #90 caps pantoprazole 40 mg tablet,delayed 40 mg PO DAILY #90 T ABLETS 01/25/25 03/02/25 06:30 Rx release diphenoxylate-atropine 2.5 1 tab PO TID PRN diarrhea # 90 tabs 02/02/25 Unknown Rx mg-0.025 mg tablet (Lomotil) promethazine 25 mg tablet 25 mg PO Q6H PRN PRN Nausea #30 02/02/25 Unknown Rx tabs tramadol 50 mg tablet 50 mg PO Q6H PRN PRN pain Unknown History oxycodone-acetaminophen 5 mg-325 1 tab PO Q6H PRN PRN pain 5 days 02/27/25 Unknown Rx mg tablet #20 TABLETS prednisone 20 mg tablet 60 mg (3 x 20 mg) PO DAILY # 15 02/27/25 Unknown Rx TABLETS Allergy/AdvReac Type Severity Reaction Status Date / Time doxycycline calcium (From Allergy Anaphylaxis Verified 02/27/25 17:20 Vibramycin) doxycycline hyclate (From Allergy Anaphylaxis Verified 02/27/25 17:20 Vibramycin) doxycycline monohydrate Allergy Anaphylaxis Verified 02/27/25 17:20 (From Vibramycin) NSAIDS (Non-Steroidal Allergy Anaphylaxis Verified 02/27/25 17:20 Anti-Inflamma duloxetine (From Cymbalta) AdvReac HEADACHE Verified 02/27/25 17:20 AND UPSET STOMACH hydrocodone bitartrate (From AdvReac STOMACH Verified 02/27/25 17:20 Vicodin) UPSET hydromorphone HCl (From AdvReac Vomiting Verified 02/27/25 17:20 Dilaudid) morphine AdvReac Vomiting Verified 02/27/25 17:20 Family History Mother Asthma Hypertension Kidney disease Father Asthma Myocardial infarction Daughter Asthma Diabetes Hypertension Sister Asthma Hypertension Surgical History History of left hip replacement History of total right knee replacement (TKR) S/P total knee arthroplasty Hx of esophagogastroduodenoscopy History of cardiac catheterization S/P repair of paraesophageal hernia History of Vanessa fundoplication H/O adenoidectomy History of tonsillectomy H/O hernia repair History of total left knee replacement Hx of section H/O shoulder surgery Social History household members: family housing: house Smoking Status: Former smoker quit date: 07/29/13 alcohol intake: never substance use type: does not use Vital Signs Vital Signs Vital Signs: 03/02/25 08:37 03/02/25 08:37 03/02/25 09:19 Temperature 97.4 F L 97.4 F L Temperature Source Temporal Pulse Rate 74 74 Respiratory Rate 16 16 Respiratory Pattern Normal Blood Pressure 133/63 H 133/63 H Blood Pressure Mean 86 Blood Pressure Source Monitor Blood Pressure Position Semi-Fowlers Blood Pressure Location Left Arm Pulse Ox 95 95 Oxygen Delivery Method Room Air Room Air Weight Weight: 188 lb 0.869 oz Body Mass Index (BMI) 33.8 Physical Exam Const alert and oriented x3 Assessment & Plan Assessment/Plan (1) 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 03/02/25 1014 <Electronically signed by Kenya Garcia MD> Cosigner Signature (if applicable): CC: AUTOMOTIVE SALES MANAGERRowan Arriaga; Dr. Kenya Garcia MD~ Signed [facility] Work Phone: Hospital course Narrative No data available for this section [facility] Hospital Discharge instructions No data available for this section [facility] Hospital Discharge instructions Additional Instructions CT with no PE. Cardiac workup negative. CT abdomen pelvis no infectious findings. Urine retention with Ash catheter. Likely from your cancer with radiation therapy. Follow-up with urology. Keep your follow-up with your doctors.[facility] Work Phone: Hospital Discharge instructions Additional Instructions Your head CT showed no sign of skull fracture or brain bleed. Your hip x-rays show degenerative changes without fracture or damage to your previous hardware. You may ice the areas that are painful to help reduce pain and speed healing as well as take the prescribed Percocet. Blzz-qju-brxhzab medication such as lidocaine patches or Salonpas may help as well. Return to the ER should you have any further concerns[facility] Work Phone: Hospital Discharge instructions Additional Instructions I am not sure what is causing her chronic left sacral and buttock pain. Your CT of the pelvis is normal other than osteoporosis. I prescribed Luther for pain. Take a stool softener or MiraLAX while on this. Follow-up with your primary care doctor.[facility] Work Phone: Hospital Discharge instructionsAdditional Instructions 1. Stop taking the tramadol while you are on Percocet. 2.[facility] Work Phone: Progress note No data available for this section [facility] Reason for referral (narrative)* Diagnostic Procedure Only (Routine) - Pending Review Specialty Diagnoses / Procedures Referred By Jordy t Referred To Contact BR IMAGING Diagnoses Encounter for screening mammogram for breast cancer Procedures MARIA TERESA SCREENING W CAMERON SCREENING DIGITAL BREAST TOMOSYNTHESIS BI SCREENING MAMMOGRAPHY BI 2-VIEW BREAST INC Selene Valencia MD [address] [place] [address] Br Imaging [address] [address] Referral ID Status Reason Start Date Expiration Date Visits Requested Visits Authorized [id number] Pending Review Auto-Generat ed Referral 01/24/2022 02/23/2023 1 1 [facility] for referral (narrative)* Diagnostic Procedure Only (Routine) - Closed Specialty Diagnoses / Procedures Referred By Contac t Referred To Contact XR IMAGING Diagnoses Pain in left hip Fall, initial encounter Procedures XR HIP GENERAL 3V PELV/AP/LAT LEFT RADEX HIP UNILATERAL WITH PELVIS 2-3 VIEWS Sarah Pearson PA-C [address] [facility] [address] [place] [address] Xr Imaging Referral ID Status Reason Start Date Expiration Date V isits Requested Visits Authorized [id number] Closed Auto-Generate d Referral 06/26/2022 07/26/2023 1 1 [facility] for referral (narrative)* Diagnostic Procedure Only (Routine) - Closed Specialty Diagnoses / Procedures Referred By Contac t Referred To Contact XR IMAGING Diagnoses Pain in left hip Fall, initial encounter Procedures XR HIP GENERAL 3V PELV/AP/LAT LEFT RADEX HIP UNILATERAL WITH PELVIS 2-3 VIEWS Sarah Pearson PA-C [address] [address] Xr Imaging Referral ID Status Reason Start Date Expiration Date V isits Requested Visits Authorized [id number] Closed Auto-Generate d Referral 06/26/2022 07/26/2023 1 1 [facility] for referral (narrative)* Diagnostic Procedure Only (Routine) - New Request Specialty Diagnoses / Procedures Referred By Contac t Referred To Contact XR IMAGING Diagnoses Osteoporosis, unspecified osteoporosis type, unspecified pathological fracture presence Procedures DXA-AXIAL SKELETON DXA BONE DENSITY STUDY 1/> SITES AXIAL SKEL Sarah Pearson PA-C [address] [place] [address] [place] [address] Referral ID Status Reason Start Date Expiration Date Visits Requested Visits Authorized [id number] New Request Auto-Generat ed Referral 06/14/2025 1 1 [facility] for referral (narrative)No reason for referral information availableWVeterans [facility] Administration Work Phone: [facility] for visit Narrative* Diagnostic Procedure Only (Routine) - Closed Specialty Diagnoses / Procedures Referred By Contac t Referred To Contact XR IMAGING Diagnoses Pain in left hip Fall, initial encounter Procedures XR HIP GENERAL 3V PELV/AP/LAT LEFT RADEX HIP UNILATERAL WITH PELVIS 2-3 VIEWS Sarah Pearson PA-C [address] [address] Xr Imaging Referral ID Status Reason Start Date Expiration Date V isits Requested Visits Authorized [id number] Closed Auto-Generate d Referral 06/26/2022 07/26/2023 1 1 [facility] for visit Narrative* Diagnostic Procedure Only (Routine) - Closed Specialty Diagnoses / Procedures Referred By Contac t Referred To Contact XR IMAGING Diagnoses Osteoporosis, unspecified osteoporosis type, unspecified pathological fracture presence Procedures DXA-AXIAL SKELETON DXA BONE DENSITY STUDY / SITES AXIAL SKEL Sarah Pearson PA-C [address] [place] [address] [place] [address] Referral ID Status Reason Start Date Expiration Date V isits Requested Visits Authorized [id number] Closed Auto-Generate d Referral 05/15/2024 06/14/2025 1 1 [facility] for visit Narrative* MRI/CT (Urgent) - Closed Specialty Diagnoses / Procedures Referred By Contac t Referred To Contact MR IMAGING Diagnoses Anal cancer (HCC) Procedures MRI PELVIS WO/W IVCON MRI PELVIS W/O & W/CONTRAST MATERIAL Josh Bennett DO [address] [place] [address] Phone: tel: fax: [place] [address] Referral ID Status Reason Start Date Expiration Date V isits Requested Visits Authorized [id number] Closed Auto-Generate d Referral 09/16/2024 10/16/2025 1 1 [facility] for visit Narrative* Diagnostic Procedure Only (Routine) - Closed Specialty Diagnoses / Procedures Referred By Jordy nguyen Referred To Contact BR IMAGING Diagnoses Encounter for gynecological examination (general) (routine) without abnormal findings Encounter for screening mammogram for breast cancer Procedures MARIA TERESA SCREENING W CAMERON SCREENING DIGITAL BREAST TOMOSYNTHESIS BI SCREENING MAMMOGRAPHY BI 2-VIEW BREAST INC CAD Juan José Cheema MD [address] [place] [address] Phone: tel: fax: BR IMAGING [address] [place] [address] Referral ID Status Reason Start Date Expiration Date V isits Requested Visits Authorized [id number] Closed Auto-Generate d Referral 09/30/2024 10/30/2025 1 1 [facility] for visit Narrative* MRI/CT (Routine) - Closed Specialty Diagnoses / Procedures Referred By Jordy nguyen Referred To Contact MR IMAGING Diagnoses Malignant neoplasm of anus (HCC) Anal cancer (HCC) Procedures MRI PELVIS WO/W IVCON MRI PELVIS W/O & W/CONTRAST MATERIAL Delvin Ron APRN.TRACY [address] [place] [address] Phone: tel: fax: [place] [address] Referral ID Status Reason Start Date Expiration Date V isits Requested Visits Authorized [id number] Closed Auto-Generate d Referral 02/01/2025 01/01/2026 1 1 [facility] Summary Purpose Family History No Family History Records Found Relationship Condition Age at Onset Recorded Date/T jay mother Asthma Unknown Hypertension Unknown Kidney disorder Unknown father Asthma Unknown Myocardial infarction Unknown daughter Asthma Unknown Diabetes mellitus Unknown sister Asthma Unknown Advance Directives No Advanced Directives Records FoundDocuments on File Type Date Recorded Patient Payroll Services Analyst Expl anation Advance Directive(s) 08/15/2021 1:41 PM [...] Documents on File Type Date Recorded Patient Payroll Services Analyst Expl anation Advance Directive(s) 08/15/2021 1:41 PM [...] Documents on File Type Date Recorded Patient Payroll Services Analyst Expl anation Advance Directive(s) 05/07/2019 9:13 AM Documents on File Type Date Recorded Patient Payroll Services Analyst Expl anation Advance Directive(s) 05/07/2019 9:13 AM Advance Directive Response Recorded Date/ Time Advance Directives No December 12 6 7:43pm Living Will No January 24, 2020 10:32am Power of Cage Loader No January 23 0 10:32am Advance Directive Response Recorded Date/ Time Advance Directives No December 12 6 8:43pm Living Will No January 24, 2020 11:32am Power of Cage Loader No January 23 0 11:32am Advance Directive Response Recorded Date/ Time Advance Directives No December 12 6 8:43pm Living Will No November 05, 2022 10:02am Power of Cage Loader No November 05 10:02am Advance Directive Response Recorded Date/ Time Advance Directives No December 12 6 8:43pm Living Will No January 09, 2023 2:02pm Power of Cage Loader No January 09 2:02pm Advance Directive Response Recorded Date/ Time Advance Directives No December 12 8:43pm Living Will Yes January 23, 2023 12:51pm Power of Cage Loader No January 23 12:51pm Advance Directive Response Recorded Date/ Time Advance Directives No December 12 7:43pm Living Will Yes January 23, 2023 11:51am Power of Cage Loader No January 23 11:51am Advance Directive Response Recorded Date/ Time Name of Medical Power of Cage Loader Anabel fontenot October 19, 2023 4:15pm Advance Directives No December 12 8:43pm Living Will Yes October 19, 2023 4:15pm Power of Cage Loader Yes October 18 4:15pm Documents on File Type Date Recorded Patient Payroll Services Analyst Expl anation Advance Directive(s) 10/13/2024 8:49 AM Documents on File Type Date Recorded Patient Payroll Services Analyst Expl anation Advance Directive(s) 10/13/2024 8:49 AM Advance Directive Response Recorded Date/ Time Living Will Yes March 17 8:51am Power of Cage Loader Yes March 17 024 8:51am Living Will Yes September 02 7:53pm Power of Cage Loader Yes September 02, 2024 7:53pm Name of Medical Power of Cage Loader Annabel keita September 02, 2024 7:53pm Living Will No September 24 025 8:18pm Power of Cage Loader No September 24, 2024 8:18pm Advance Directives No December 12 8:43pm Advance Directive Response Recorded Date/ Time Living Will Yes March 17 8:51am Do you have a Healthcare Pow er of Cage Loader? Yes March 17, 2024 8:51am Living Will Yes September 02 7:53pm Do you have a Healthcare Pow er of Cage Loader? Yes September 02, 2024 7:53pm Name of Medical Power of Cage Loader Annabel keita September 02, 2024 7:53pm Living Will No September 24 8:18pm Do you have a Healthcare Pow er of Cage Loader? No September 24, 2024 8:18pm Living Will Yes October 24, 2024 9:07pm Do you have a Healthcare Pow er of Cage Loader? Yes October 24, 2024 9:07pm Name of Medical Power of Cage Loader annabel banda may October 24, 2024 9:07pm Advance Directives No December 12 6 8:43pm Advance Directive Response Recorded Date/ Time Living Will Yes March 17 8:51am Do you have a Healthcare Pow er of Cage Loader? Yes March 17, 2024 8:51am Living Will Yes September 02 7:53pm Do you have a Healthcare Pow er of Cage Loader? Yes September 02, 2024 7:53pm Name of Medical Power of Cage Loader Annabeltereza Banda neela September 02, 2024 7:53pm Living Will No October 30, 2024 1:05am Do you have a Healthcare Pow er of Cage Loader? No October 30, 2024 1:05am Living Will No September 24 8:18pm Do you have a Healthcare Pow er of Cage Loader? No September 24, 2024 8:18pm Living Will Yes October 24, 2024 9:07pm Do you have a Healthcare Pow er of Cage Loader? Yes October 24, 2024 9:07pm Name of Medical Power of Cage Loader annabel banda may October 24, 2024 9:07pm Advance Directives No December 12 8:43pm Advance Directive Response Recorded Date/ Time Living Will Yes September 02 7:53pm Do you have a Healthcare Pow er of Cage Loader? Yes September 02, 2024 7:53pm Name of Medical Power of Cage Loader Annabel keita September 02, 2024 7:53pm Living Will No October 30, 2024 1:05am Do you have a Healthcare Pow er of Cage Loader? No October 30, 2024 1:05am Do you have a Healthcare Pow er of Cage Loader? No December 27, 2024 3:23pm Living Will No September 24 025 8:18pm Do you have a Healthcare Pow er of Cage Loader? No September 24, 2024 8:18pm Living Will Yes October 24, 2024 9:07pm Do you have a Healthcare Pow er of Cage Loader? Yes October 24, 2024 9:07pm Name of Medical Power of Cage Loader annabeltreeza banda may October 24, 2024 9:07pm Advance Directives No December 12 6 8:43pm Advance Directive Response Recorded Date/ Time Living Will No October 30, 2024 1:05am Do you have a Healthcare Pow er of Cage Loader? No October 30, 2024 1:05am Do you have a Healthcare Pow er of Cage Loader? No December 27, 2024 3:23pm Living Will No September 24 8:18pm Do you have a Healthcare Pow er of Cage Loader? No September 24, 2024 8:18pm Living Will Yes October 24, 2024 9:07pm Do you have a Healthcare Pow er of Cage Loader? Yes October 24, 2024 9:07pm Name of Medical Power of Cage Loader annabel solo may October 24, 2024 9:07pm Advance Directives No December 12 6 8:43pm Advance Directive Response Recorded Date/ Time Living Will No October 30, 2024 1:05am Do you have a Healthcare Power of Cage Loader? No October 30, 2024 1:05am Do you have a Healthcare Power of Cage Loader? No December 27, 2024 3:23pm Living Will Yes October 24, 2024 9:07pm Do you have a Healthcare Power of Cage Loader? Yes October 24, 2024 9:07pm Name of Medical Power of Cage Loader annabel solo may October 24, 2024 9:07pm Advance Directives No December 12 6 8:43pm Advance Directive Response Recorded Date/ Time Living Will No October 30, 2024 1:05am Do you have a Healthcare Pow er of Cage Loader? No October 30, 2024 1:05am Do you have a Healthcare Pow er of Cage Loader? No December 27, 2024 3:23pm Do you have a Healthcare Pow er of Cage Loader? Yes February 27, 2025 5:52pm Name of Medical Power of Cage Loader magda olvera daughter February 27, 2025 5:52pm Advance Directives No December 12 8:43pm Advance Directive Response Recorded Date/ Time Do you have a Healthcare Pow er of Cage Loader? No December 27, 2024 3:23pm Do you have a Healthcare Pow er of Cage Loader? Yes February 24, 2025 2:24pm Do you have a Healthcare Pow er of Cage Loader? Yes February 27, 2025 5:52pm Name of Medical Power of Cage Loader magda olvera daughter February 27, 2025 5:52pm Advance Directives No December 12 8:43pm Medications Administered Section Inactive Administered Medications - up to 3 most recent administrations Medication Order MAR Action Action Date Dose Rate Site abatacept 750 mg in NaCl 0.9% 100 mL (ORENCIA) 750 mg (set by rule on 04/21/2019 2:30 PM), INTRAVENOUS, at 200 mL/hr, Administer over 30 Minutes, ONCE, 1 dose, On [place] 11/02/21 at 1100, Total Volume: 100 mL EXP [...] 30 Minutes, ONCE, 1 dose, On [place] 11/30/21 at 1030, Total Volume: 100 mL EXP [...] 30 Minutes, ONCE, 1 dose, On [place] 12/28/21 at 1130, Total Volume: 100 mL EXP [...] over 30 Minutes, ONCE, 1 dose, On 03/05/22 at 1300, Total Volume: 100 mL EXP [...] 30 Minutes, ONCE, 1 dose, On [place] 05/03/22 at 1130, Total Volume: 100 mL EXP [...] over 30 Minutes, ONCE, 1 dose, On 05/27/23 at 1300, Total Volume: 100 mL; Exp: [...] am Irritable bowel syndrome with diarrhea J [facility] 2024 8:19am Chief Complaint Admit Date [...] am Irritable bowel syndrome with diarrhea J [facility] 2024 8:19am Diarrhea February 02, 2025 10:53 am 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 February 09, 2025 9:32am Chief Complaint Admit Date fall October 30, 2024 12:5 7am BUTTOCK PAIN December 27, 2024 2:42p m FU January 14, 2025 8:19 am 3 WEEK FU February 02, 2025 10:53 am UPDATE H&P, Sigmoidoscopy February 09 9:32am LEFT HIP PAIN February 27, 2025 5:1 9pm Chief Complaint Admit Date BUTTOCK PAIN December 27, 2024 2:42p m FU January 14, 2025 8:19 am 3 WEEK FU February 02, 2025 10:53 am UPDATE H&P, Sigmoidoscopy February 09 9:32am LEFT HIP PAIN February 27, 2025 5:1 9pm Reason for Visit Admit Date Crohn disease January 14, 2025 8:19 am Irritable bowel syndrome with diarrhea J [facility] 2024 8:19am Diarrhea February 02, 2025 10:53 am 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 February 09, 2025 9:32am 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 March 02, 2025 8:14am Chief Complaint Admit Date BUTTOCK PAIN December 27, 2024 2:42p m FU January 14, 2025 8:19 am 3 WEEK FU February 02, 2025 10:53 am UPDATE H&P, Sigmoidoscopy February 09 9:32am LEFT HIP PAIN February 27, 2025 5:1 9pm 6 wk FU March 16, 2025 10 :07am Reason for Visit Admit Date Crohn disease January 14, 2025 8:19 am Irritable bowel syndrome with diarrhea J [facility] 2024 8:19am Diarrhea February 02, 2025 10:53 am 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 February 09, 2025 9:32am 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 March 02, 2025 8:14am Irritable bowel syndrome with diarrhea A ugust 2024 10:07am Diarrhea March 16, 2025 10 :07am Reason for Referral Specialty Diagnoses / Procedures Referred By Jordy t Referred To Contact Hematology Diagnoses Iron deficiency anemia, unspecified iron deficiency anemia type Procedures CONSULT TO HEMATOLOGY OFFICE/OUTPATIENT [facility] 60 MINUTES Sarah Pearson, LIZZIE [address] [place] [address] Referral ID Status Reason Start Date Expiration Date Visits Requested Visits Authorized [id number] Authorized PCP Requested Referral 05/29/2024 08/27/2024 1 1 Additional Source Comments INFORMATION SOURCE (unrecogn ized section and content) DATE CREATED AUTHOR 10/05/2019 [facility] DATE CREATED AUTHOR AUTHOR'S ORGANIZ ATION 05/08/2021 [facility] DATE CREATED AUTHOR AUTHOR'S ORGANIZ ATION 04/05/2022 [facility] ([place]) DATE CREATED AUTHOR AUTHOR'S ORGANIZ ATION 06/30/2024 [facility] DATE CREATED AUTHOR AUTHOR'S ORGANIZ ATION 11/04/2024 [facility] DATE CREATED AUTHOR AUTHOR'S ORGANIZ ATION 12/09/2024 [facility] DATE CREATED AUTHOR AUTHOR'S ORGANIZ ATION 03/20/2025 [facility] DATE CREATED AUTHOR AUTHOR'S ORGANIZ ATION 03/25/2025 [facility] Source Comments (unrecognize d section and content) In the event this informatio n is protected by the Federal Confidentiality of Alcohol and Drug Abuse Patient Records regulations: The Federal rules restrict any use of the information to criminally investigate or prosecute any alcohol or drug abuse patient.[facility] the event this information is protected by the Federal Confidentiality of Alcohol and Drug Abuse Patient Records regulations: The Federal rules restrict any use of the information to criminally investigate or prosecute any alcohol or drug abuse patient.[facility] the event this information is protected by the Federal Confidentiality of Alcohol and Drug Abuse Patient Records regulations: The Federal rules restrict any use of the information to criminally investigate or prosecute any alcohol or drug abuse patient.[facility] the event this information is protected by the Federal Confidentiality of Alcohol and Drug Abuse Patient Records regulations: The Federal rules restrict any use of the information to criminally investigate or prosecute any alcohol or drug abuse patient.[facility] the event this information is protected by the Federal Confidentiality of Alcohol and Drug Abuse Patient Records regulations: The Federal rules restrict any use of the information to criminally investigate or prosecute any alcohol or drug abuse patient.[facility] the event this information is protected by the Federal Confidentiality of Alcohol and Drug Abuse Patient Records regulations: The Federal rules restrict any use of the information to criminally investigate or prosecute any alcohol or drug abuse patient.[facility] the event this information is protected by the Federal Confidentiality of Alcohol and Drug Abuse Patient Records regulations: The Federal rules restrict any use of the information to criminally investigate or prosecute any alcohol or drug abuse patient.[facility] the event this information is protected by the Federal Confidentiality of Alcohol and Drug Abuse Patient Records regulations: The Federal rules restrict any use of the information to criminally investigate or prosecute any alcohol or drug abuse patient.[facility] the event this information is protected by the Federal Confidentiality of Alcohol and Drug Abuse Patient Records regulations: The Federal rules restrict any use of the information to criminally investigate or prosecute any alcohol or drug abuse patient.[facility] the event this information is protected by the Federal Confidentiality of Alcohol and Drug Abuse Patient Records regulations: The Federal rules restrict any use of the information to criminally investigate or prosecute any alcohol or drug abuse patient.[facility] the event this information is protected by the Federal Confidentiality of Alcohol and Drug Abuse Patient Records regulations: The Federal rules restrict any use of the information to criminally investigate or prosecute any alcohol or drug abuse patient.[facility] the event this information is protected by the Federal Confidentiality of Alcohol and Drug Abuse Patient Records regulations: The Federal rules restrict any use of the information to criminally investigate or prosecute any alcohol or drug abuse patient.[facility] the event this information is protected by the Federal Confidentiality of Alcohol and Drug Abuse Patient Records regulations: The Federal rules restrict any use of the information to criminally investigate or prosecute any alcohol or drug abuse patient.[facility] the event this information is protected by the Federal Confidentiality of Alcohol and Drug Abuse Patient Records regulations: The Federal rules restrict any use of the information to criminally investigate or prosecute any alcohol or drug abuse patient.[facility] the event this information is protected by the Federal Confidentiality of Alcohol and Drug Abuse Patient Records regulations: The Federal rules restrict any use of the information to criminally investigate or prosecute any alcohol or drug abuse patient.[facility] the event this information is protected by the Federal Confidentiality of Alcohol and Drug Abuse Patient Records regulations: The Federal rules restrict any use of the information to criminally investigate or prosecute any alcohol or drug abuse patient.[facility] the event this information is protected by the Federal Confidentiality of Alcohol and Drug Abuse Patient Records regulations: The Federal rules restrict any use of the information to criminally investigate or prosecute any alcohol or drug abuse patient.[facility] the event this information is protected by the Federal Confidentiality of Alcohol and Drug Abuse Patient Records regulations: The Federal rules restrict any use of the information to criminally investigate or prosecute any alcohol or drug abuse patient.[facility] the event this information is protected by the Federal Confidentiality of Alcohol and Drug Abuse Patient Records regulations: The Federal rules restrict any use of the information to criminally investigate or prosecute any alcohol or drug abuse patient.[facility] the event this information is protected by the Federal Confidentiality of Alcohol and Drug Abuse Patient Records regulations: The Federal rules restrict any use of the information to criminally investigate or prosecute any alcohol or drug abuse patient.[facility] the event this information is protected by the Federal Confidentiality of Alcohol and Drug Abuse Patient Records regulations: The Federal rules restrict any use of the information to criminally investigate or prosecute any alcohol or drug abuse patient.[facility] the event this information is protected by the Federal Confidentiality of Alcohol and Drug Abuse Patient Records regulations: The Federal rules restrict any use of the information to criminally investigate or prosecute any alcohol or drug abuse patient.[facility]In the event this information is protected by the Federal Confidentiality of Alcohol and Drug Abuse Patient Records regulations: The Federal rules restrict any use of the information to criminally investigate or prosecute any alcohol or drug abuse patient.[facility]In the event this information is protected by the Federal Confidentiality of Alcohol and Drug Abuse Patient Records regulations: The Federal rules restrict any use of the information to criminally investigate or prosecute any alcohol or drug abuse patient.[facility]In the event this information is protected by the Federal Confidentiality of Alcohol and Drug Abuse Patient Records regulations: The Federal rules restrict any use of the information to criminally investigate or prosecute any alcohol or drug abuse patient.[facility]In the event this information is protected by the Federal Confidentiality of Alcohol and Drug Abuse Patient Records regulations: The Federal rules restrict any use of the information to criminally investigate or prosecute any alcohol or drug abuse patient.[facility]In the event this information is protected by the Federal Confidentiality of Alcohol and Drug Abuse Patient Records regulations: The Federal rules restrict any use of the information to criminally investigate or prosecute any alcohol or drug abuse patient.[facility]In the event this information is protected by the Federal Confidentiality of Alcohol and Drug Abuse Patient Records regulations: The Federal rules restrict any use of the information to criminally investigate or prosecute any alcohol or drug abuse patient.[facility]In the event this information is protected by the Federal Confidentiality of Alcohol and Drug Abuse Patient Records regulations: The Federal rules restrict any use of the information to criminally investigate or prosecute any alcohol or drug abuse patient.[facility]In the event this information is protected by the Federal Confidentiality of Alcohol and Drug Abuse Patient Records regulations: The Federal rules restrict any use of the information to criminally investigate or prosecute any alcohol or drug abuse patient.[facility]In the event this information is protected by the Federal Confidentiality of Alcohol and Drug Abuse Patient Records regulations: The Federal rules restrict any use of the information to criminally investigate or prosecute any alcohol or drug abuse patient.[facility]In the event this information is protected by the Federal Confidentiality of Alcohol and Drug Abuse Patient Records regulations: The Federal rules restrict any use of the information to criminally investigate or prosecute any alcohol or drug abuse patient.[facility]In the event this information is protected by the Federal Confidentiality of Alcohol and Drug Abuse Patient Records regulations: The Federal rules restrict any use of the information to criminally investigate or prosecute any alcohol or drug abuse patient.[facility]In the event this information is protected by the Federal Confidentiality of Alcohol and Drug Abuse Patient Records regulations: The Federal rules restrict any use of the information to criminally investigate or prosecute any alcohol or drug abuse patient.[facility]In the event this information is protected by the Federal Confidentiality of Alcohol and Drug Abuse Patient Records regulations: The Federal rules restrict any use of the information to criminally investigate or prosecute any alcohol or drug abuse patient.[facility]In the event this information is protected by the Federal Confidentiality of Alcohol and Drug Abuse Patient Records regulations: The Federal rules restrict any use of the information to criminally investigate or prosecute any alcohol or drug abuse patient.[facility]In the event this information is protected by the Federal Confidentiality of Alcohol and Drug Abuse Patient Records regulations: The Federal rules restrict any use of the information to criminally investigate or prosecute any alcohol or drug abuse patient.[facility]In the event this information is protected by the Federal Confidentiality of Alcohol and Drug Abuse Patient Records regulations: The Federal rules restrict any use of the information to criminally investigate or prosecute any alcohol or drug abuse patient.[facility]In the event this information is protected by the Federal Confidentiality of Alcohol and Drug Abuse Patient Records regulations: The Federal rules restrict any use of the information to criminally investigate or prosecute any alcohol or drug abuse patient.[facility]In the event this information is protected by the Federal Confidentiality of Alcohol and Drug Abuse Patient Records regulations: The Federal rules restrict any use of the information to criminally investigate or prosecute any alcohol or drug abuse patient.[facility]In the event this information is protected by the Federal Confidentiality of Alcohol and Drug Abuse Patient Records regulations: The Federal rules restrict any use of the information to criminally investigate or prosecute any alcohol or drug abuse patient.[facility]In the event this information is protected by the Federal Confidentiality of Alcohol and Drug Abuse Patient Records regulations: The Federal rules restrict any use of the information to criminally investigate or prosecute any alcohol or drug abuse patient.[facility]In the event this information is protected by the Federal Confidentiality of Alcohol and Drug Abuse Patient Records regulations: The Federal rules restrict any use of the information to criminally investigate or prosecute any alcohol or drug abuse patient.[facility]In the event this information is protected by the Federal Confidentiality of Alcohol and Drug Abuse Patient Records regulations: The Federal rules restrict any use of the information to criminally investigate or prosecute any alcohol or drug abuse patient.[facility]In the event this information is protected by the Federal Confidentiality of Alcohol and Drug Abuse Patient Records regulations: The Federal rules restrict any use of the information to criminally investigate or prosecute any alcohol or drug abuse patient.[facility]In the event this information is protected by the Federal Confidentiality of Alcohol and Drug Abuse Patient Records regulations: The Federal rules restrict any use of the information to criminally investigate or prosecute any alcohol or drug abuse patient.[facility]In the event this information is protected by the Federal Confidentiality of Alcohol and Drug Abuse Patient Records regulations: The Federal rules restrict any use of the information to criminally investigate or prosecute any alcohol or drug abuse patient.[facility]In the event this information is protected by the Federal Confidentiality of Alcohol and Drug Abuse Patient Records regulations: The Federal rules restrict any use of the information to criminally investigate or prosecute any alcohol or drug abuse patient.[facility]In the event this information is protected by the Federal Confidentiality of Alcohol and Drug Abuse Patient Records regulations: The Federal rules restrict any use of the information to criminally investigate or prosecute any alcohol or drug abuse patient.[facility]In the event this information is protected by the Federal Confidentiality of Alcohol and Drug Abuse Patient Records regulations: The Federal rules restrict any use of the information to criminally investigate or prosecute any alcohol or drug abuse patient.[facility]In the event this information is protected by the Federal Confidentiality of Alcohol and Drug Abuse Patient Records regulations: The Federal rules restrict any use of the information to criminally investigate or prosecute any alcohol or drug abuse patient.[facility]In the event this information is protected by the Federal Confidentiality of Alcohol and Drug Abuse Patient Records regulations: The Federal rules restrict any use of the information to criminally investigate or prosecute any alcohol or drug abuse patient.[facility]In the event this information is protected by the Federal Confidentiality of Alcohol and Drug Abuse Patient Records regulations: The Federal rules restrict any use of the information to criminally investigate or prosecute any alcohol or drug abuse patient.[facility]In the event this information is protected by the Federal Confidentiality of Alcohol and Drug Abuse Patient Records regulations: The Federal rules restrict any use of the information to criminally investigate or prosecute any alcohol or drug abuse patient.[facility]In the event this information is protected by the Federal Confidentiality of Alcohol and Drug Abuse Patient Records regulations: The Federal rules restrict any use of the information to criminally investigate or prosecute any alcohol or drug abuse patient.[facility]In the event this information is protected by the Federal Confidentiality of Alcohol and Drug Abuse Patient Records regulations: The Federal rules restrict any use of the information to criminally investigate or prosecute any alcohol or drug abuse patient.[facility]In the event this information is protected by the Federal Confidentiality of Alcohol and Drug Abuse Patient Records regulations: The Federal rules restrict any use of the information to criminally investigate or prosecute any alcohol or drug abuse patient.[facility]In the event this information is protected by the Federal Confidentiality of Alcohol and Drug Abuse Patient Records regulations: The Federal rules restrict any use of the information to criminally investigate or prosecute any alcohol or drug abuse patient.[facility]In the event this information is protected by the Federal Confidentiality of Alcohol and Drug Abuse Patient Records regulations: The Federal rules restrict any use of the information to criminally investigate or prosecute any alcohol or drug abuse patient.[facility]In the event this information is protected by the Federal Confidentiality of Alcohol and Drug Abuse Patient Records regulations: The Federal rules restrict any use of the information to criminally investigate or prosecute any alcohol or drug abuse patient.[facility]In the event this information is protected by the Federal Confidentiality of Alcohol and Drug Abuse Patient Records regulations: The Federal rules restrict any use of the information to criminally investigate or prosecute any alcohol or drug abuse patient.[facility]In the event this information is protected by the Federal Confidentiality of Alcohol and Drug Abuse Patient Records regulations: The Federal rules restrict any use of the information to criminally investigate or prosecute any alcohol or drug abuse patient.[facility]In the event this information is protected by the Federal Confidentiality of Alcohol and Drug Abuse Patient Records regulations: The Federal rules restrict any use of the information to criminally investigate or prosecute any alcohol or drug abuse patient.[facility]In the event this information is protected by the Federal Confidentiality of Alcohol and Drug Abuse Patient Records regulations: The Federal rules restrict any use of the information to criminally investigate or prosecute any alcohol or drug abuse patient.[facility]In the event this information is protected by the Federal Confidentiality of Alcohol and Drug Abuse Patient Records regulations: The Federal rules restrict any use of the information to criminally investigate or prosecute any alcohol or drug abuse patient.[facility]In the event this information is protected by the Federal Confidentiality of Alcohol and Drug Abuse Patient Records regulations: The Federal rules restrict any use of the information to criminally investigate or prosecute any alcohol or drug abuse patient.[facility]In the event this information is protected by the Federal Confidentiality of Alcohol and Drug Abuse Patient Records regulations: The Federal rules restrict any use of the information to criminally investigate or prosecute any alcohol or drug abuse patient.[facility]In the event this information is protected by the Federal Confidentiality of Alcohol and Drug Abuse Patient Records regulations: The Federal rules restrict any use of the information to criminally investigate or prosecute any alcohol or drug abuse patient.[facility]In the event this information is protected by the Federal Confidentiality of Alcohol and Drug Abuse Patient Records regulations: The Federal rules restrict any use of the information to criminally investigate or prosecute any alcohol or drug abuse patient.[facility]In the event this information is protected by the Federal Confidentiality of Alcohol and Drug Abuse Patient Records regulations: The Federal rules restrict any use of the information to criminally investigate or prosecute any alcohol or drug abuse patient.[facility]In the event this information is protected by the Federal Confidentiality of Alcohol and Drug Abuse Patient Records regulations: The Federal rules restrict any use of the information to criminally investigate or prosecute any alcohol or drug abuse patient.[facility]In the event this information is protected by the Federal Confidentiality of Alcohol and Drug Abuse Patient Records regulations: The Federal rules restrict any use of the information to criminally investigate or prosecute any alcohol or drug abuse patient.[facility]In the event this information is protected by the Federal Confidentiality of Alcohol and Drug Abuse Patient Records regulations: The Federal rules restrict any use of the information to criminally investigate or prosecute any alcohol or drug abuse patient.[facility]In the event this information is protected by the Federal Confidentiality of Alcohol and Drug Abuse Patient Records regulations: The Federal rules restrict any use of the information to criminally investigate or prosecute any alcohol or drug abuse patient.[facility]In the event this information is protected by the Federal Confidentiality of Alcohol and Drug Abuse Patient Records regulations: The Federal rules restrict any use of the information to criminally investigate or prosecute any alcohol or drug abuse patient.[facility]In the event this information is protected by the Federal Confidentiality of Alcohol and Drug Abuse Patient Records regulations: The Federal rules restrict any use of the information to criminally investigate or prosecute any alcohol or drug abuse patient.[facility]In the event this information is protected by the Federal Confidentiality of Alcohol and Drug Abuse Patient Records regulations: The Federal rules restrict any use of the information to criminally investigate or prosecute any alcohol or drug abuse patient.[facility]In the event this information is protected by the Federal Confidentiality of Alcohol and Drug Abuse Patient Records regulations: The Federal rules restrict any use of the information to criminally investigate or prosecute any alcohol or drug abuse patient.[facility]In the event this information is protected by the Federal Confidentiality of Alcohol and Drug Abuse Patient Records regulations: The Federal rules restrict any use of the information to criminally investigate or prosecute any alcohol or drug abuse patient.[facility]In the event this information is protected by the Federal Confidentiality of Alcohol and Drug Abuse Patient Records regulations: The Federal rules restrict any use of the information to criminally investigate or prosecute any alcohol or drug abuse patient.[facility]In the event this information is protected by the Federal Confidentiality of Alcohol and Drug Abuse Patient Records regulations: The Federal rules restrict any use of the information to criminally investigate or prosecute any alcohol or drug abuse patient.[facility]In the event this information is protected by the Federal Confidentiality of Alcohol and Drug Abuse Patient Records regulations: The Federal rules restrict any use of the information to criminally investigate or prosecute any alcohol or drug abuse patient.[facility]In the event this information is protected by the Federal Confidentiality of Alcohol and Drug Abuse Patient Records regulations: The Federal rules restrict any use of the information to criminally investigate or prosecute any alcohol or drug abuse patient.[facility]In the event this information is protected by the Federal Confidentiality of Alcohol and Drug Abuse Patient Records regulations: The Federal rules restrict any use of the information to criminally investigate or prosecute any alcohol or drug abuse patient.[facility]In the event this information is protected by the Federal Confidentiality of Alcohol and Drug Abuse Patient Records regulations: The Federal rules restrict any use of the information to criminally investigate or prosecute any alcohol or drug abuse patient.[facility]In the event this information is protected by the Federal Confidentiality of Alcohol and Drug Abuse Patient Records regulations: The Federal rules restrict any use of the information to criminally investigate or prosecute any alcohol or drug abuse patient.[facility]In the event this information is protected by the Federal Confidentiality of Alcohol and Drug Abuse Patient Records regulations: The Federal rules restrict any use of the information to criminally investigate or prosecute any alcohol or drug abuse patient.[facility]In the event this information is protected by the Federal Confidentiality of Alcohol and Drug Abuse Patient Records regulations: The Federal rules restrict any use of the information to criminally investigate or prosecute any alcohol or drug abuse patient.[facility]In the event this information is protected by the Federal Confidentiality of Alcohol and Drug Abuse Patient Records regulations: The Federal rules restrict any use of the information to criminally investigate or prosecute any alcohol or drug abuse patient.[facility]In the event this information is protected by the Federal Confidentiality of Alcohol and Drug Abuse Patient Records regulations: The Federal rules restrict any use of the information to criminally investigate or prosecute any alcohol or drug abuse patient.[facility]In the event this information is protected by the Federal Confidentiality of Alcohol and Drug Abuse Patient Records regulations: The Federal rules restrict any use of the information to criminally investigate or prosecute any alcohol or drug abuse patient.[facility]In the event this information is protected by the Federal Confidentiality of Alcohol and Drug Abuse Patient Records regulations: The Federal rules restrict any use of the information to criminally investigate or prosecute any alcohol or drug abuse patient.[facility]In the event this information is protected by the Federal Confidentiality of Alcohol and Drug Abuse Patient Records regulations: The Federal rules restrict any use of the information to criminally investigate or prosecute any alcohol or drug abuse patient.[facility]In the event this information is protected by the Federal Confidentiality of Alcohol and Drug Abuse Patient Records regulations: The Federal rules restrict any use of the information to criminally investigate or prosecute any alcohol or drug abuse patient.[facility]In the event this information is protected by the Federal Confidentiality of Alcohol and Drug Abuse Patient Records regulations: The Federal rules restrict any use of the information to criminally investigate or prosecute any alcohol or drug abuse patient.[facility]In the event this information is protected by the Federal Confidentiality of Alcohol and Drug Abuse Patient Records regulations: The Federal rules restrict any use of the information to criminally investigate or prosecute any alcohol or drug abuse patient.[facility]In the event this information is protected by the Federal Confidentiality of Alcohol and Drug Abuse Patient Records regulations: The Federal rules restrict any use of the information to criminally investigate or prosecute any alcohol or drug abuse patient.[facility]In the event this information is protected by the Federal Confidentiality of Alcohol and Drug Abuse Patient Records regulations: The Federal rules restrict any use of the information to criminally investigate or prosecute any alcohol or drug abuse patient.[facility]In the event this information is protected by the Federal Confidentiality of Alcohol and Drug Abuse Patient Records regulations: The Federal rules restrict any use of the information to criminally investigate or prosecute any alcohol or drug abuse patient.[facility]In the event this information is protected by the Federal Confidentiality of Alcohol and Drug Abuse Patient Records regulations: The Federal rules restrict any use of the information to criminally investigate or prosecute any alcohol or drug abuse patient.[facility]In the event this information is protected by the Federal Confidentiality of Alcohol and Drug Abuse Patient Records regulations: The Federal rules restrict any use of the information to criminally investigate or prosecute any alcohol or drug abuse patient.[facility]In the event this information is protected by the Federal Confidentiality of Alcohol and Drug Abuse Patient Records regulations: The Federal rules restrict any use of the information to criminally investigate or prosecute any alcohol or drug abuse patient.[facility]In the event this information is protected by the Federal Confidentiality of Alcohol and Drug Abuse Patient Records regulations: The Federal rules restrict any use of the information to criminally investigate or prosecute any alcohol or drug abuse patient.[facility]In the event this information is protected by the Federal Confidentiality of Alcohol and Drug Abuse Patient Records regulations: The Federal rules restrict any use of the information to criminally investigate or prosecute any alcohol or drug abuse patient.[facility]In the event this information is protected by the Federal Confidentiality of Alcohol and Drug Abuse Patient Records regulations: The Federal rules restrict any use of the information to criminally investigate or prosecute any alcohol or drug abuse patient.[facility]In the event this information is protected by the Federal Confidentiality of Alcohol and Drug Abuse Patient Records regulations: The Federal rules restrict any use of the information to criminally investigate or prosecute any alcohol or drug abuse patient.[facility]In the event this information is protected by the Federal Confidentiality of Alcohol and Drug Abuse Patient Records regulations: The Federal rules restrict any use of the information to criminally investigate or prosecute any alcohol or drug abuse patient.[facility]In the event this information is protected by the Federal Confidentiality of Alcohol and Drug Abuse Patient Records regulations: The Federal rules restrict any use of the information to criminally investigate or prosecute any alcohol or drug abuse patient.[facility]In the event this information is protected by the Federal Confidentiality of Alcohol and Drug Abuse Patient Records regulations: The Federal rules restrict any use of the information to criminally investigate or prosecute any alcohol or drug abuse patient.[facility]In the event this information is protected by the Federal Confidentiality of Alcohol and Drug Abuse Patient Records regulations: The Federal rules restrict any use of the information to criminally investigate or prosecute any alcohol or drug abuse patient.[facility]In the event this information is protected by the Federal Confidentiality of Alcohol and Drug Abuse Patient Records regulations: The Federal rules restrict any use of the information to criminally investigate or prosecute any alcohol or drug abuse patient.[facility]In the event this information is protected by the Federal Confidentiality of Alcohol and Drug Abuse Patient Records regulations: The Federal rules restrict any use of the information to criminally investigate or prosecute any alcohol or drug abuse patient.[facility]In the event this information is protected by the Federal Confidentiality of Alcohol and Drug Abuse Patient Records regulations: The Federal rules restrict any use of the information to criminally investigate or prosecute any alcohol or drug abuse patient.[facility]In the event this information is protected by the Federal Confidentiality of Alcohol and Drug Abuse Patient Records regulations: The Federal rules restrict any use of the information to criminally investigate or prosecute any alcohol or drug abuse patient.[facility]In the event this information is protected by the Federal Confidentiality of Alcohol and Drug Abuse Patient Records regulations: The Federal rules restrict any use of the information to criminally investigate or prosecute any alcohol or drug abuse patient.[facility]In the event this information is protected by the Federal Confidentiality of Alcohol and Drug Abuse Patient Records regulations: The Federal rules restrict any use of the information to criminally investigate or prosecute any alcohol or drug abuse patient.[facility]In the event this information is protected by the Federal Confidentiality of Alcohol and Drug Abuse Patient Records regulations: The Federal rules restrict any use of the information to criminally investigate or prosecute any alcohol or drug abuse patient.[facility]In the event this information is protected by the Federal Confidentiality of Alcohol and Drug Abuse Patient Records regulations: The Federal rules restrict any use of the information to criminally investigate or prosecute any alcohol or drug abuse patient.[facility]In the event this information is protected by the Federal Confidentiality of Alcohol and Drug Abuse Patient Records regulations: The Federal rules restrict any use of the information to criminally investigate or prosecute any alcohol or drug abuse patient.[facility]In the event this information is protected by the Federal Confidentiality of Alcohol and Drug Abuse Patient Records regulations: The Federal rules restrict any use of the information to criminally investigate or prosecute any alcohol or drug abuse patient.[facility]In the event this information is protected by the Federal Confidentiality of Alcohol and Drug Abuse Patient Records regulations: The Federal rules restrict any use of the information to criminally investigate or prosecute any alcohol or drug abuse patient.[facility]In the event this information is protected by the Federal Confidentiality of Alcohol and Drug Abuse Patient Records regulations: The Federal rules restrict any use of the information to criminally investigate or prosecute any alcohol or drug abuse patient.[facility]In the event this information is protected by the Federal Confidentiality of Alcohol and Drug Abuse Patient Records regulations: The Federal rules restrict any use of the information to criminally investigate or prosecute any alcohol or drug abuse patient.[facility]In the event this information is protected by the Federal Confidentiality of Alcohol and Drug Abuse Patient Records regulations: The Federal rules restrict any use of the information to criminally investigate or prosecute any alcohol or drug abuse patient.[facility]In the event this information is protected by the Federal Confidentiality of Alcohol and Drug Abuse Patient Records regulations: The Federal rules restrict any use of the information to criminally investigate or prosecute any alcohol or drug abuse patient.[facility]In the event this information is protected by the Federal Confidentiality of Alcohol and Drug Abuse Patient Records regulations: The Federal rules restrict any use of the information to criminally investigate or prosecute any alcohol or drug abuse patient.[facility]In the event this information is protected by the Federal Confidentiality of Alcohol and Drug Abuse Patient Records regulations: The Federal rules restrict any use of the information to criminally investigate or prosecute any alcohol or drug abuse patient.[facility]In the event this information is protected by the Federal Confidentiality of Alcohol and Drug Abuse Patient Records regulations: The Federal rules restrict any use of the information to criminally investigate or prosecute any alcohol or drug abuse patient.[facility]In the event this information is protected by the Federal Confidentiality of Alcohol and Drug Abuse Patient Records regulations: The Federal rules restrict any use of the information to criminally investigate or prosecute any alcohol or drug abuse patient.[facility]In the event this information is protected by the Federal Confidentiality of Alcohol and Drug Abuse Patient Records regulations: The Federal rules restrict any use of the information to criminally investigate or prosecute any alcohol or drug abuse patient.[facility]In the event this information is protected by the Federal Confidentiality of Alcohol and Drug Abuse Patient Records regulations: The Federal rules restrict any use of the information to criminally investigate or prosecute any alcohol or drug abuse patient.[facility]In the event this information is protected by the Federal Confidentiality of Alcohol and Drug Abuse Patient Records regulations: The Federal rules restrict any use of the information to criminally investigate or prosecute any alcohol or drug abuse patient.[facility]In the event this information is protected by the Federal Confidentiality of Alcohol and Drug Abuse Patient Records regulations: The Federal rules restrict any use of the information to criminally investigate or prosecute any alcohol or drug abuse patient.[facility]In the event this information is protected by the Federal Confidentiality of Alcohol and Drug Abuse Patient Records regulations: The Federal rules restrict any use of the information to criminally investigate or prosecute any alcohol or drug abuse patient.[facility]In the event this information is protected by the Federal Confidentiality of Alcohol and Drug Abuse Patient Records regulations: The Federal rules restrict any use of the information to criminally investigate or prosecute any alcohol or drug abuse patient.[facility]In the event this information is protected by the Federal Confidentiality of Alcohol and Drug Abuse Patient Records regulations: The Federal rules restrict any use of the information to criminally investigate or prosecute any alcohol or drug abuse patient.[facility]In the event this information is protected by the Federal Confidentiality of Alcohol and Drug Abuse Patient Records regulations: The Federal rules restrict any use of the information to criminally investigate or prosecute any alcohol or drug abuse patient.[facility]In the event this information is protected by the Federal Confidentiality of Alcohol and Drug Abuse Patient Records regulations: The Federal rules restrict any use of the information to criminally investigate or prosecute any alcohol or drug abuse patient.[facility]In the event this information is protected by the Federal Confidentiality of Alcohol and Drug Abuse Patient Records regulations: The Federal rules restrict any use of the information to criminally investigate or prosecute any alcohol or drug abuse patient.[facility]In the event this information is protected by the Federal Confidentiality of Alcohol and Drug Abuse Patient Records regulations: The Federal rules restrict any use of the information to criminally investigate or prosecute any alcohol or drug abuse patient.[facility]In the event this information is protected by the Federal Confidentiality of Alcohol and Drug Abuse Patient Records regulations: The Federal rules restrict any use of the information to criminally investigate or prosecute any alcohol or drug abuse patient.[facility]In the event this information is protected by the Federal Confidentiality of Alcohol and Drug Abuse Patient Records regulations: The Federal rules restrict any use of the information to criminally investigate or prosecute any alcohol or drug abuse patient.[facility]In the event this information is protected by the Federal Confidentiality of Alcohol and Drug Abuse Patient Records regulations: The Federal rules restrict any use of the information to criminally investigate or prosecute any alcohol or drug abuse patient.[facility]In the event this information is protected by the Federal Confidentiality of Alcohol and Drug Abuse Patient Records regulations: The Federal rules restrict any use of the information to criminally investigate or prosecute any alcohol or drug abuse patient.[facility]In the event this information is protected by the Federal Confidentiality of Alcohol and Drug Abuse Patient Records regulations: The Federal rules restrict any use of the information to criminally investigate or prosecute any alcohol or drug abuse patient.[facility]In the event this information is protected by the Federal Confidentiality of Alcohol and Drug Abuse Patient Records regulations: The Federal rules restrict any use of the information to criminally investigate or prosecute any alcohol or drug abuse patient.[facility]In the event this information is protected by the Federal Confidentiality of Alcohol and Drug Abuse Patient Records regulations: The Federal rules restrict any use of the information to criminally investigate or prosecute any alcohol or drug abuse patient.[facility]In the event this information is protected by the Federal Confidentiality of Alcohol and Drug Abuse Patient Records regulations: The Federal rules restrict any use of the information to criminally investigate or prosecute any alcohol or drug abuse patient.[facility]In the event this information is protected by the Federal Confidentiality of Alcohol and Drug Abuse Patient Records regulations: The Federal rules restrict any use of the information to criminally investigate or prosecute any alcohol or drug abuse patient.[facility]In the event this information is protected by the Federal Confidentiality of Alcohol and Drug Abuse Patient Records regulations: The Federal rules restrict any use of the information to criminally investigate or prosecute any alcohol or drug abuse patient.[facility]In the event this information is protected by the Federal Confidentiality of Alcohol and Drug Abuse Patient Records regulations: The Federal rules restrict any use of the information to criminally investigate or prosecute any alcohol or drug abuse patient.[facility]In the event this information is protected by the Federal Confidentiality of Alcohol and Drug Abuse Patient Records regulations: The Federal rules restrict any use of the information to criminally investigate or prosecute any alcohol or drug abuse patient.[facility]In the event this information is protected by the Federal Confidentiality of Alcohol and Drug Abuse Patient Records regulations: The Federal rules restrict any use of the information to criminally investigate or prosecute any alcohol or drug abuse patient.[facility]In the event this information is protected by the Federal Confidentiality of Alcohol and Drug Abuse Patient Records regulations: The Federal rules restrict any use of the information to criminally investigate or prosecute any alcohol or drug abuse patient.[facility]In the event this information is protected by the Federal Confidentiality of Alcohol and Drug Abuse Patient Records regulations: The Federal rules restrict any use of the information to criminally investigate or prosecute any alcohol or drug abuse patient.[facility]In the event this information is protected by the Federal Confidentiality of Alcohol and Drug Abuse Patient Records regulations: The Federal rules restrict any use of the information to criminally investigate or prosecute any alcohol or drug abuse patient.[facility]In the event this information is protected by the Federal Confidentiality of Alcohol and Drug Abuse Patient Records regulations: The Federal rules restrict any use of the information to criminally investigate or prosecute any alcohol or drug abuse patient.[facility]In the event this information is protected by the Federal Confidentiality of Alcohol and Drug Abuse Patient Records regulations: The Federal rules restrict any use of the information to criminally investigate or prosecute any alcohol or drug abuse patient.[facility]In the event this information is protected by the Federal Confidentiality of Alcohol and Drug Abuse Patient Records regulations: The Federal rules restrict any use of the information to criminally investigate or prosecute any alcohol or drug abuse patient.[facility]In the event this information is protected by the Federal Confidentiality of Alcohol and Drug Abuse Patient Records regulations: The Federal rules restrict any use of the information to criminally investigate or prosecute any alcohol or drug abuse patient.[facility]In the event this information is protected by the Federal Confidentiality of Alcohol and Drug Abuse Patient Records regulations: The Federal rules restrict any use of the information to criminally investigate or prosecute any alcohol or drug abuse patient.[facility]In the event this information is protected by the Federal Confidentiality of Alcohol and Drug Abuse Patient Records regulations: The Federal rules restrict any use of the information to criminally investigate or prosecute any alcohol or drug abuse patient.[facility]In the event this information is protected by the Federal Confidentiality of Alcohol and Drug Abuse Patient Records regulations: The Federal rules restrict any use of the information to criminally investigate or prosecute any alcohol or drug abuse patient.[facility]In the event this information is protected by the Federal Confidentiality of Alcohol and Drug Abuse Patient Records regulations: The Federal rules restrict any use of the information to criminally investigate or prosecute any alcohol or drug abuse patient.[facility]In the event this information is protected by the Federal Confidentiality of Alcohol and Drug Abuse Patient Records regulations: The Federal rules restrict any use of the information to criminally investigate or prosecute any alcohol or drug abuse patient.[facility]In the event this information is protected by the Federal Confidentiality of Alcohol and Drug Abuse Patient Records regulations: The Federal rules restrict any use of the information to criminally investigate or prosecute any alcohol or drug abuse patient.[facility]In the event this information is protected by the Federal Confidentiality of Alcohol and Drug Abuse Patient Records regulations: The Federal rules restrict any use of the information to criminally investigate or prosecute any alcohol or drug abuse patient.[facility]In the event this information is protected by the Federal Confidentiality of Alcohol and Drug Abuse Patient Records regulations: The Federal rules restrict any use of the information to criminally investigate or prosecute any alcohol or drug abuse patient.[facility]In the event this information is protected by the Federal Confidentiality of Alcohol and Drug Abuse Patient Records regulations: The Federal rules restrict any use of the information to criminally investigate or prosecute any alcohol or drug abuse patient.[facility]In the event this information is protected by the Federal Confidentiality of Alcohol and Drug Abuse Patient Records regulations: The Federal rules restrict any use of the information to criminally investigate or prosecute any alcohol or drug abuse patient.[facility]In the event this information is protected by the Federal Confidentiality of Alcohol and Drug Abuse Patient Records regulations: The Federal rules restrict any use of the information to criminally investigate or prosecute any alcohol or drug abuse patient.[facility]In the event this information is protected by the Federal Confidentiality of Alcohol and Drug Abuse Patient Records regulations: The Federal rules restrict any use of the information to criminally investigate or prosecute any alcohol or drug abuse patient.[facility]In the event this information is protected by the Federal Confidentiality of Alcohol and Drug Abuse Patient Records regulations: The Federal rules restrict any use of the information to criminally investigate or prosecute any alcohol or drug abuse patient.[facility]In the event this information is protected by the Federal Confidentiality of Alcohol and Drug Abuse Patient Records regulations: The Federal rules restrict any use of the information to criminally investigate or prosecute any alcohol or drug abuse patient.[facility]In the event this information is protected by the Federal Confidentiality of Alcohol and Drug Abuse Patient Records regulations: The Federal rules restrict any use of the information to criminally investigate or prosecute any alcohol or drug abuse patient.[facility]In the event this information is protected by the Federal Confidentiality of Alcohol and Drug Abuse Patient Records regulations: The Federal rules restrict any use of the information to criminally investigate or prosecute any alcohol or drug abuse patient.[facility]In the event this information is protected by the Federal Confidentiality of Alcohol and Drug Abuse Patient Records regulations: The Federal rules restrict any use of the information to criminally investigate or prosecute any alcohol or drug abuse patient.[facility]In the event this information is protected by the Federal Confidentiality of Alcohol and Drug Abuse Patient Records regulations: The Federal rules restrict any use of the information to criminally investigate or prosecute any alcohol or drug abuse patient.[facility]In the event this information is protected by the Federal Confidentiality of Alcohol and Drug Abuse Patient Records regulations: The Federal rules restrict any use of the information to criminally investigate or prosecute any alcohol or drug abuse patient.[facility]In the event this information is protected by the Federal Confidentiality of Alcohol and Drug Abuse Patient Records regulations: The Federal rules restrict any use of the information to criminally investigate or prosecute any alcohol or drug abuse patient.[facility]In the event this information is protected by the Federal Confidentiality of Alcohol and Drug Abuse Patient Records regulations: The Federal rules restrict any use of the information to criminally investigate or prosecute any alcohol or drug abuse patient.[facility]In the event this information is protected by the Federal Confidentiality of Alcohol and Drug Abuse Patient Records regulations: The Federal rules restrict any use of the information to criminally investigate or prosecute any alcohol or drug abuse patient.[facility]In the event this information is protected by the Federal Confidentiality of Alcohol and Drug Abuse Patient Records regulations: The Federal rules restrict any use of the information to criminally investigate or prosecute any alcohol or drug abuse patient.[facility]In the event this information is protected by the Federal Confidentiality of Alcohol and Drug Abuse Patient Records regulations: The Federal rules restrict any use of the information to criminally investigate or prosecute any alcohol or drug abuse patient.[facility]In the event this information is protected by the Federal Confidentiality of Alcohol and Drug Abuse Patient Records regulations: The Federal rules restrict any use of the information to criminally investigate or prosecute any alcohol or drug abuse patient.[facility]In the event this information is protected by the Federal Confidentiality of Alcohol and Drug Abuse Patient Records regulations: The Federal rules restrict any use of the information to criminally investigate or prosecute any alcohol or drug abuse patient.[facility]In the event this information is protected by the Federal Confidentiality of Alcohol and Drug Abuse Patient Records regulations: The Federal rules restrict any use of the information to criminally investigate or prosecute any alcohol or drug abuse patient.[facility]In the event this information is protected by the Federal Confidentiality of Alcohol and Drug Abuse Patient Records regulations: The Federal rules restrict any use of the information to criminally investigate or prosecute any alcohol or drug abuse patient.[facility]In the event this information is protected by the Federal Confidentiality of Alcohol and Drug Abuse Patient Records regulations: The Federal rules restrict any use of the information to criminally investigate or prosecute any alcohol or drug abuse patient.[facility]In the event this information is protected by the Federal Confidentiality of Alcohol and Drug Abuse Patient Records regulations: The Federal rules restrict any use of the information to criminally investigate or prosecute any alcohol or drug abuse patient.[facility]In the event this information is protected by the Federal Confidentiality of Alcohol and Drug Abuse Patient Records regulations: The Federal rules restrict any use of the information to criminally investigate or prosecute any alcohol or drug abuse patient.[facility]In the event this information is protected by the Federal Confidentiality of Alcohol and Drug Abuse Patient Records regulations: The Federal rules restrict any use of the information to criminally investigate or prosecute any alcohol or drug abuse patient.[facility]In the event this information is protected by the Federal Confidentiality of Alcohol and Drug Abuse Patient Records regulations: The Federal rules restrict any use of the information to criminally investigate or prosecute any alcohol or drug abuse patient.[facility] HospitalIn the event this information is protected by the Federal Confidentiality of Alcohol and Drug Abuse Patient Records regulations: The Federal rules restrict any use of the information to criminally investigate or prosecute any alcohol or drug abuse patient.[facility]In the event this information is protected by the Federal Confidentiality of Alcohol and Drug Abuse Patient Records regulations: The Federal rules restrict any use of the information to criminally investigate or prosecute any alcohol or drug abuse patient.[facility] the event this information is protected by the Federal Confidentiality of Alcohol and Drug Abuse Patient Records regulations: The Federal rules restrict any use of the information to criminally investigate or prosecute any alcohol or drug abuse patient.[facility]In the event this information is protected by the Federal Confidentiality of Alcohol and Drug Abuse Patient Records regulations: The Federal rules restrict any use of the information to criminally investigate or prosecute any alcohol or drug abuse patient.[facility]In the event this information is protected by the Federal Confidentiality of Alcohol and Drug Abuse Patient Records regulations: The Federal rules restrict any use of the information to criminally investigate or prosecute any alcohol or drug abuse patient.[facility]In the event this information is protected by the Federal Confidentiality of Alcohol and Drug Abuse Patient Records regulations: The Federal rules restrict any use of the information to criminally investigate or prosecute any alcohol or drug abuse patient.[facility]In the event this information is protected by the Federal Confidentiality of Alcohol and Drug Abuse Patient Records regulations: The Federal rules restrict any use of the information to criminally investigate or prosecute any alcohol or drug abuse patient.[facility] HospitalIn the event this information is protected by the Federal Confidentiality of Alcohol and Drug Abuse Patient Records regulations: The Federal rules restrict any use of the information to criminally investigate or prosecute any alcohol or drug abuse patient.[facility]In the event this information is protected by the Federal Confidentiality of Alcohol and Drug Abuse Patient Records regulations: The Federal rules restrict any use of the information to criminally investigate or prosecute any alcohol or drug abuse patient.[facility]In the event this information is protected by the Federal Confidentiality of Alcohol and Drug Abuse Patient Records regulations: The Federal rules restrict any use of the information to criminally investigate or prosecute any alcohol or drug abuse patient.[facility] HospitalIn the event this information is protected by the Federal Confidentiality of Alcohol and Drug Abuse Patient Records regulations: The Federal rules restrict any use of the information to criminally investigate or prosecute any alcohol or drug abuse patient.[facility] HospitalIn the event this information is protected by the Federal Confidentiality of Alcohol and Drug Abuse Patient Records regulations: The Federal rules restrict any use of the information to criminally investigate or prosecute any alcohol or drug abuse patient.[facility] Reason for Visit (unrecogniz ed section and content) Reason Comments Infusion Specialty Diagnoses / Procedures Referred By Contac t Referred To Contact Diagnoses Rheumatoid arthritis involving multiple sites, unspecified whether rheumatoid factor present (HCC) Rheumatoid arthritis involving multiple sites with positive rheumatoid factor (HCC) Procedures ABATACEPT INJECTION Jennifer Arias MD [address] [place] [address] Andrew [facility] [address] [place] [address] Referral ID Status Reason Start Date Expiration Date V isits Requested Visits Authorized [id number] Authorized 04/11/2023 09/06/2023 12 6 Specialty Diagnoses / Procedures Referred By Contac t Referred To Contact HEMONC INFUSION Diagnoses Other specified rheumatoid arthritis, multiple sites Procedures INJECTION, ZOLEDRONIC ACID, 1 MG Reclast Jennifer Arias MD [address] [place] [address] Andrew [facility] [address] [place] [address] Referral ID Status Reason Start Date Expiration Date V isits Requested Visits Authorized [id number] Authorized 01/18/2021 01/03/2024 1 14 Reason Comments Orders Specialty Diagnoses / Procedures Referred By Contac t Referred To Contact HEMONC INFUSION Diagnoses Other specified rheumatoid arthritis, multiple sites Procedures Jennifer Valderrama MD [address] [place] [address] Andrew [facility] [address] [place] [address] Referral ID Status Reason Start Date Expiration Date Visits Requested Visits Authorized [id number] Authorized Patient Cleared INN/SMCP Payor Auth Obtained 08/17/2021 08/16/2022 99 99 Reason Onset Date Comments Refill Request 11/19/2021 Reason Onset Date Comments Vomiting 04/19/2021 Specialty Diagnoses / Procedures Referred By Contac t Referred To Contact HEMONC INFUSION Diagnoses Other specified rheumatoid arthritis, multiple sites Procedures Jennifer Valderrama MD [address] [place] [address] Andrew [facility] [address] [place] [address] Referral ID Status Reason Start Date Expiration Date Visits Requested Visits Authorized [id number] Pending Review Patient Cleared INN/SMCP Payor Auth Obtained 08/17/2021 08/16/2022 99 99 Referral ID Status Reason Start Date Expiration Date Visits Requested Visits Authorized [id number] Authorized Patient Cleared INN/SMCP Payor Auth Obtained 08/17/2021 08/16/2022 12 99 Reason Comments APPROVED Reclast APPROVED [id number] 01.25.2022 - 01.25.2023 per [facility] medicare Portal Reason Onset Date Comments Refill Request 01/08/2022 Reason Comments Refill Request Reason Onset Date Comments Refill Request 01/18/2022 Reason Comments Rheumatoid Arthritis Osteoporosis Specialty Diagnoses / Procedures Referred By Contac t Referred To Contact Rheumatology / RHEUMATOLOGY Diagnoses RA/Junie sarah January Procedures OFFICE/OUTPATIENT ESTABLISHED MOD MDM 30-39 MIN VIDEO SPEC EST Jennifer Arias MD [address] [place] [address] Sarah Pearson PA-C [address] [place] [address] Referral ID Status Reason Start Date Expiration Date Visits Re quested Visits Authorized [id number] Closed 01/30/2022 07/28/2022 1 1 Reason Comments Injections Cable Reason Comments Follow Up Reason Comments Future Appointment Cable Reason Comments Appointment Reason Comments Future Appointment Referral ID Status Reason Start Date Expiration Date Visits Requested Visits Authorized [id number] Pending Review Patient Cleared INN/SMCP Payor Auth [...] current p athological fracture Reason Comments APPROVED Orencia APPROVED [id number] 09.06.22 - 09.06.23 [facility] Medicare Portal Reason Onset Date Comments Refill Request 10/31/2022 Specialty Diagnoses / Procedures Referred By Contac t Referred To Contact HEMON INFUSION Diagnoses Other specified rheumatoid arthritis, multiple sites Procedures ABATACEPT INJECTION DARRENIA Jennifer Gomez MD [address] [facility] [address] [place] [address] Andrew Treat [facility] [address] [place] [address] Referral ID Status Reason Start Date Expiration Date Visits Requested Visits Authorized [id number] Authorized Patient Cleared INN/SMCP Payor Auth Obtained Financial Clearance Not Required 08/17/2021 09/06/2023 12 99 Reason Onset Date Comments Refill Request 12/24/2022 Reason Comments Patient Question Reason Comments PRECERT NOT REQUIRED Zoledronic Acid 5mg PRECERT NOT REQUIRED [id number] 01.02.23 - 01.03.24 for 1 visit [facility] Dual/Portal Reason Comments Osteoporosis Reason Comments Radio Gen RMP Reason Comments Medication Preauthorization Orencia- Bat h Pending [id number] [facility]/Portal Specialty Diagnoses / Procedures Referred By Contac t Referred To Contact Diagnoses Rheumatoid arthritis involving multiple sites, unspecified whether rheumatoid factor present (HCC) Rheumatoid arthritis involving multiple sites with positive rheumatoid factor (HCC) Procedures ABATACEPT INJECTION ABATACEPT INJECTION Jennifer Arias MD [address] [facility] [address] [place] [address] Andrew Treat [address] [place] [place] [address] Referral ID Status Reason Start Date Expiration Date V isits Requested Visits Authorized [id number] Authorized 04/11/2023 09/16/2024 12 17 Referral ID Status Reason Start Date Expiration Date Visits Re quested Visits Authorized [id number] Closed 04/11/2023 09/16/2024 12 17 Reason Comments Joint Pain Osteoporosis BMD on 07/10/2022 Specialty Diagnoses / Procedures Referred By Contac t Referred To Contact Diagnoses Rheumatoid arthritis involving multiple sites with positive rheumatoid factor (HCC) Procedures ABATACEPT INJECTION Tracy Velez PA-C [address] [place] [address] Andrew [facility] [address] [place] [address] Referral ID Status Reason Start Date Expiration Date V isits Requested Visits Authorized [id number] Authorized 11/11/2023 09/16/2024 1 13 Specialty Diagnoses / Procedures Referred By Contac t Referred To Contact Radiology / [facility] Diagnoses 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, U09.9] Procedures XR CHEST Selene Pierre MD [address] [place] [address] Radio General [facility] [address] [place] [address] Referral ID Status Reason Start Date Expiration Date Visits Re quested Visits Authorized [id number] Closed 05/01/2021 07/28/2021 1 1 Reason Comments Results Reason Comments New Patient Specialty Diagnoses / Procedures Referred By Contac t Referred To Contact Hematology Diagnoses Iron deficiency anemia, unspecified iron deficiency anemia type Procedures CONSULT TO HEMATOLOGY OFFICE/OUTPATIENT NEW HIGH MDM 60 MINUTES Sarah Pearson PA-C [address] [place] [address] Referral ID Status Reason Start Date Expiration Date V isits Requested Visits Authorized [id number] Closed PCP Requested Referral 05/29/2024 08/27/2024 1 1 Reason Comments Non-Chemotherapy Treatment Specialty Diagnoses / Procedures Referred By Contac t Referred To Contact Diagnoses Rheumatoid arthritis involving multiple sites with positive rheumatoid factor (HCC) Procedures ABATACEPT INJECTION Tracy Velez PA-C [address] [place] [address] Andrew [facility] [address] [place] [address] Referral ID Status Reason Start Date Expiration Date Visits Requested Visits Authorized [id number] Authorized Patient Cleared - Admin/Chairm an/Director advise to proceed or did not respond 11/11/2023 06/16/2025 19 19 Specialty Diagnoses / Procedures Referred By Contac t Referred To Contact Diagnoses Iron 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 blood loss Iron malabsorption Procedures IRON SUCROSE INJECTION PER 1 MG Josh Bennett, DO [address] [facility] [place] [address] Andrew [facility] [address] [place] [address] Referral ID Status Reason Start Date Expiration Date V isits Requested Visits Authorized [id number] Authorized 06/15/2024 06/18/2025 10 10 Specialty Diagnoses / Procedures Referred By Contac t Referred To Contact Diagnoses Iron 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 blood loss Iron malabsorption Procedures IRON SUCROSE INJECTION PER 1 MG Josh Bennett, DO [address] [place] [address] Andrew [facility] [address] [place] [address] Reason Comments Rectal Problem Hemorrhoids and yeas [...] OFFICE/OUTPATIENT NEW HIGH MDM 60 MINUTES Josh Bennett DO [address] [facility] [place] [address] Phone: tel: fax: Referral ID Status Reason Start Date Expiration Date V isits Requested Visits Authorized [id number] Closed PCP Requested Referral 09/15/2024 09/15/2025 [address] Specialty Diagnoses / Procedures Referred By Contac t Referred To Contact CT IMAGING Diagnoses Anal cancer (HCC) Procedures CT CHEST W IVCON DIAGNOSTIC COMPUTED TOMOGRAPHY THORAX W/CONTRAST Josh Bennett DO [address] [facility] [place] [address] Phone: tel: fax: [place] [phone] Referral ID Status Reason Start Date Expiration Date V isits Requested Visits Authorized [id number] Closed Auto-Generate d Referral 09/16/2024 10/16/2025 1 1 Reason Comments UTI Low back pain, frequ ency, lower abd pressure, nausea x1 week Reason Comments First Time Treatment Education 5FU/Mitom ycin Reason Comments appointment change Reason Comments Rheumatoid Arthritis Reason Comments Well Woman Specialty Diagnoses / Procedures Referred By Contac t Referred To Contact Gynecology Diagnoses Anal cancer (HCC) Procedures CONSULT TO GYNECOLOGY OFFICE/OUTPATIENT [facility] 60 MINUTES Josh Bennett, DO [address] [place] [address] Phone: tel: fax: Referral ID Status Reason Start Date Expiration Date V isits Requested Visits Authorized [id number] Closed PCP Requested Referral Auto-Generated Referral 09/15/2024 09/15/2025 1 1 Reason Onset Date Comments Simulation Request Form 09/28/2024 Reason Comments Chemotherapy Treatment Specialty Diagnoses / Procedures Referred By Contac t Referred To Contact Diagnoses Anal cancer (HCC) Procedures FLUOROURACIL INJECTION MITOMYCIN 5 MG INJ Josh Bennett, DO [address] [place] [address] Phone: tel: fax: Josh Bennett, DO [address] [facility] [place] [address] Phone: tel: fax: Referral ID Status Reason Start Date Expiration Date V isits Requested Visits Authorized [id number] Authorized 09/21/2024 09/21/2025 99 99 Reason Comments Radiotherapy On-treatment Visit Reason Comments Portable Sawyer - Other C1D1 Post Treat ment Call (5FU/Mitomycin) Reason Comments Established Patient Reason Comments Portable Sawyer - Other Follow-up Reason Comments CADD Pump [...] Appointment Reclast Reason Comments Recheck Reason Comments 11/30 AVS Reason Onset Date Comments Refill Request 01/05/2025 Specialty Diagnoses / Procedures Referred By Contac t Referred To Contact Diagnoses Rheumatoid arthritis involving multiple sites with positive rheumatoid factor (HCC) Other osteoporosis without current pathological fracture Procedures INJECTION, ZOLEDRONIC ACID, 1 MG Jennifer Arias MD [address] [address] Phone: tel: fax: Jennifer Arias MD [address] [place] [address] Phone: tel: fax: Referral ID Status Reason Start Date Expiration Date V isits Requested Visits Authorized [id number] Authorized 01/05/2025 01/05/2026 1 1 Reason Onset Date Comments Refill Request 01/13/2025 Reason Onset Date Comments Refill Request 02/03/2025 Specialty Diagnoses / Procedures Referred By Contac t Referred To Contact Diagnoses Other osteoporosis without current pathological fracture Rheumatoid arthritis involving multiple sites with positive rheumatoid factor (HCC) Procedures ABATACEPT INJECTION Jennifer Arias MD [address] [address] Phone: tel: fax: Jennifer Arias MD [address] [place] [address] Phone: tel: fax: Referral ID Status Reason Start Date Expiration Date V isits Requested Visits Authorized [id number] Authorized 06/16/2024 01/15/2026 17 17 Reason Comments Established Patient Reason Comments AVS 03/19 Care Teams (unrecognized sec tion and content) Fly Tier Relationship Specialty Start Date End Date Selene Pierre MD [address] [place] [address] PCP - General Internal Medicine 06/03/14 Ismael Kidd (Rn)(Hist), RN Specialty Portable Sawyer Hematology/Oncology 08/30/17 Quin Nolan, DO [address] [place], [place] [address] Hospice Physician Peripheral Vascular 01/26/19 Jennifer Arias MD [address] [place], [place] [address] Physician Internal Medicine 02/11/19 Ronit Rahman, DO [address] [place] [address] Physician Cardiology 02/11/19 Kj Rowe MD [address] [place] [address] Physician Pulmonary and Critical Care Medicine 04/29/19 JosiahRonit abdul, DO [address] [place] [address] Primary Staff Physician Cardiology 01/12/20 Fly Tier Relationship Specialty Start Date End Date Selene Pierre MD [address] [place], [place] [id number] PCP - General Internal Medicine 06/03/14 Ismael Kidd (Rn)(Hist), RN Specialty Portable Sawyer Hematology/Oncology 08/30/17 Quin Nolan, DO [address] [place], [place] [address] Hospice Physician Peripheral Vascular 01/26/19 Jennifer Arias MD [address] [place], [place] [address] Physician Internal Medicine 02/11/19 Ronit Rahman, DO [address] [place] [address] Physician Cardiology 02/11/19 Kj Rowe MD [address] [facility] [place], [place] [address] Physician Pulmonary and Critical Care Medicine 04/29/19 Ronit Rahman, DO [address] [place] [address] Primary Staff Physician Cardiology 01/12/20 Fly Tier Relationship Specialty Start Date End Date Selene Pierre MD [address] [place] [address] PCP - General Internal Medicine 06/03/14 Ismael Kidd (Rn)(Hist), RN Specialty Portable Sawyer Hematology/Oncology 08/30/17 Quin Nolan, DO [address] [place], [place] [address] Hospice Physician Peripheral Vascular 01/26/19 Jennifer Arias MD [address] [address] Physician Internal Medicine 02/11/19 Ronit Rahman, DO [address] [place] [address] Physician Cardiology 02/11/19 Kj Rowe MD [address] [place] [address] Physician Pulmonary and Critical Care Medicine 04/29/19 Ronit Rahman DO [address] [place] [address] Primary Staff Physician Cardiology 01/12/20 Fly Tier Relationship Specialty Start Date End Date Selene Pierre MD [address] [place] [address] PCP - General Internal Medicine 06/03/14 Ismael Kidd (Rn)(Hist), RN Specialty Portable Sawyer Hematology/Oncology 08/30/17 Quin Nolan, DO [address] [place], [place] [address] Hospice Physician Peripheral Vascular 01/26/19 Jennifer Arias MD [address] [place], [place] [address] Physician Internal Medicine 02/11/19 Ronit Rahman DO [address] [place] [address] Physician Cardiology 02/11/19 Kj Rowe MD [address] [place], [place] [address] Physician Pulmonary and Critical Care Medicine 04/29/19 Ronit Rahman DO [address] [place] [address] Primary Staff Physician Cardiology 01/12/20 Fly Tier Relationship Specialty Start Date End Date Selene Pierre MD [address] [place], [place] [address] PCP - General Internal Medicine 06/03/14 Ismael Kidd (Rn)(Hist), RN Specialty Portable Sawyer Hematology/Oncology 08/30/17 Quin Nolan, DO [address] [place], [place] [address] Hospice Physician Peripheral Vascular 01/26/19 Jennifer Arias MD [address] [facility] [address] [place], [place] [address] Physician Internal Medicine 02/11/19 Ronit Rahman DO [address] [place] [address] Physician Cardiology 02/11/19 Kj Rowe MD [address] [place], [place] [address]31 Physician Pulmonary and Critical Care Medicine 04/29/19 Ronit Rahman DO [address] [place] [address] Primary Staff Physician Cardiology 01/12/20 Fly Tier Relationship Specialty Start Date End Date Selene Pierre MD [address] [place], [place] [address] PCP - General Internal Medicine 06/03/14 Ismael Kidd (Rn)(Hist), RN Specialty Portable Sawyer Hematology/Oncology 08/30/17 Quin Nolan, DO [address] [place] [address] Hospice Physician Peripheral Vascular 01/26/19 Jennifer Arias MD [address] [place], [place] [address] Physician Internal Medicine 02/11/19 Ronit Rahman, DO [address] [place] [address] Physician Cardiology 02/11/19 Kj Rowe MD [address] [place], [place] [address] Physician Pulmonary and Critical Care Medicine 04/29/19 Ronit Rahman, DO [address] [place] [address] Primary Staff Physician Cardiology 01/12/20 Fly Tier Relationship Specialty Start Date End Date Selene Pierre MD [address] [place] [address] PCP - General Internal Medicine 06/03/14 Ismael Kidd (Rn)(Hist), RN Specialty Portable Sawyer Hematology/Oncology 08/30/17 Quin Nolan, DO [address] [place], [place] [address] Hospice Physician Peripheral Vascular 01/26/19 Jennifer Arias MD [address] [place], [place] [address] Physician Internal Medicine 02/11/19 Ronit Rahman DO [address] [place] [address] Physician Cardiology 02/11/19 Kj Rowe MD [address] [place], [place] [address] Physician Pulmonary and Critical Care Medicine 04/29/19 Ronit Rahman DO [address] [place] [address] Primary Staff Physician Cardiology 01/12/20 Fly Tier Relationship Specialty Start Date End Date Selene Pierre MD [address] [place], [place] [address] PCP - General Internal Medicine 06/03/14 Ismael Kidd (Rn)(Hist), RN Specialty Portable Sawyer Hematology/Oncology 08/30/17 Quin Nolan, DO [address] [place], [place] [address] Hospice Physician Peripheral Vascular 01/26/19 Jennifer Arias MD [address] [address] Physician Internal Medicine 02/11/19 Ronit Rahman DO [address] [place] [address] Physician Cardiology 02/11/19 Kj Rowe MD [address] [place], [place] 408[address] Physician Pulmonary and Critical Care Medicine 04/29/19 Ronit Rahman DO [address] [place] [address] Primary Staff Physician Cardiology 01/12/20 Fly Tier Relationship Specialty Start Date End Date Selene Pierre MD [address] [place], [place] [address] [phone] PCP - General Internal Medicine 06/03/14 Ismael Kidd (Rn)(Hist), RN Specialty Portable Sawyer Hematology/Oncology 08/30/17 Quin Nolan, DO [address] [place], [place] [address] Hospice Physician Peripheral Vascular 01/26/19 Jennifer Arias MD [address] [place], [place] [address] Physician Internal Medicine 02/11/19 Ronit Rahman, DO [address] [place] [address] Physician Cardiology 02/11/19 Kj Rowe MD [address] [place] [address] Physician Pulmonary and Critical Care Medicine 04/29/19 Ronit Rahman, DO [address] [place] [address] Primary Staff Physician Cardiology 01/12/20 Fly Tier Relationship Specialty Start Date End Date Selene Pierre MD [address] [place], [place] [address] PCP - General Internal Medicine 06/03/14 Ismael Kidd (Rn)(Hist), RN Specialty Portable Sawyer Hematology/Oncology 08/30/17 Quin Nolan, DO [address] [place] [address] Hospice Physician Peripheral Vascular 01/26/19 Jennifer Arias MD [address] [place], [place] [address] Physician Internal Medicine 02/11/19 Ronit Rahman, DO [address] [place] [address] Physician Cardiology 02/11/19 Kj Rowe MD [address] [place] [address] Physician Pulmonary and Critical Care Medicine 04/29/19 Ronit Rahman, DO [address] [place] [address] Primary Staff Physician Cardiology 01/12/20 Fly Tier Relationship Specialty Start Date End Date Selene Pierre MD [address] [place] [address] PCP - General Internal Medicine 06/03/14 Ismael Kidd (Rn)(Hist), RN Specialty Portable Sawyer Hematology/Oncology 08/30/17 Quin Nolan, DO [address] [place] [address] Hospice Physician Peripheral Vascular 01/26/19 Jennifer Arias MD [address] [address] Physician Internal Medicine 02/11/19 Ronit Rahman, DO [address] [place] [address] Physician Cardiology 02/11/19 Kj Rowe MD [address] [place] [address] Physician Pulmonary and Critical Care Medicine 04/29/19 Ronit Rahman DO [address] [place] [address] Primary Staff Physician Cardiology 01/12/20 Fly Tier Relationship Specialty Start Date End Date Selene Pierre MD [address] [place] [address] PCP - General Internal Medicine 06/03/14 Ismael Kidd (Rn)(Hist), RN Specialty Portable Sawyer Hematology/Oncology 08/30/17 Quin Nolan, DO [address] [place] [address] Hospice Physician Peripheral Vascular 01/26/19 Jennifer Arias MD [address] [place], [place] [address] Physician Internal Medicine 02/11/19 Ronit Rahman, DO [address] [place] [address] Physician Cardiology 02/11/19 Kj Rowe MD [address] [facility] [place] [place] [address] Physician Pulmonary and Critical Care Medicine 04/29/19 Ronit Rahman DO [address] [place] [address] Primary Staff Physician Cardiology 01/12/20 Fly Tier Relationship Specialty Start Date End Date Selene Pierre MD [address] [place], [place] [address] PCP - General Internal Medicine 06/03/14 Ismael Kidd (Rn)(Hist), RN Specialty Portable Sawyer Hematology/Oncology 08/30/17 Quin Nolan, DO [address] [place], [place] [address] Hospice Physician Peripheral Vascular 01/26/19 Jennifer Arias MD [address] [facility] [address] [place], [place] [id number] Physician Internal Medicine 02/11/19 Ronit Rahman DO [address] [place] [address] Physician Cardiology 02/11/19 Kj Rowe MD [address] [facility] [place] [place] [address] Physician Pulmonary and Critical Care Medicine 04/29/19 Ronit Rahman DO [address] [place] [address] Primary Staff Physician Cardiology 01/12/20 Fly Tier Relationship Specialty Start Date End Date Selene Pierre MD [address] [place] [address] PCP - General Internal Medicine 06/03/14 Ismael Kidd (Rn)(Hist), RN Specialty Portable Sawyer Hematology/Oncology 08/30/17 Quin Nolan, DO [address] [place] [address] Hospice Physician Peripheral Vascular 01/26/19 Jennifer Arias MD [address] [place], [place] [address]203 Physician Internal Medicine 02/11/19 Ronit Rahman, DO [address] [place] [address] Physician Cardiology 02/11/19 Kj Rowe MD [address] [place] [address] Physician Pulmonary and Critical Care Medicine 04/29/19 Ronit Rahman, DO [address] [place] [address] Primary Staff Physician Cardiology 01/12/20 Fly Tier Relationship Specialty Start Date End Date Selene Pierre MD [address] [place] [address] PCP - General Internal Medicine 06/03/14 Ismael Kidd (Rn)(Hist), RN Specialty Portable Sawyer Hematology/Oncology 08/30/17 Quin Nolan, DO [address] [place], [place] [address]85371 Hospice Physician Peripheral Vascular 01/26/19 Jennifer Arias MD [address] [place], [place] [address]123 Physician Internal Medicine 02/11/19 Ronit Rahman DO [address] [place] [address] Physician Cardiology 02/11/19 Kj Rowe MD [address] [facility] [place], [place] 45[address]11 Physician Pulmonary and Critical Care Medicine 04/29/19 Ronit Rahman DO [address] [place] [address] Primary Staff Physician Cardiology 01/12/20 Fly Tier Relationship Specialty Start Date End Date Selene Pierre MD [address] [place], [place] 744081 PCP - General Internal Medicine 06/03/14 Ismael Kidd (Rn)(Hist), RN Specialty Portable Sawyer Hematology/Oncology 08/30/17 Quin Nolan DO [address] [place], [place] 303581 Hospice Physician Peripheral Vascular 01/26/19 Jennifer Arias MD [address] [address] Physician Internal Medicine 02/11/19 Ronit Rahman DO [address] [place] [address] Physician Cardiology 02/11/19 Kj Rowe MD [address] [facility] [place], [place] [address]6431 Physician Pulmonary and Critical Care Medicine 04/29/19 Ronit Rahman DO [address] [place] [address] Primary Staff Physician Cardiology 01/12/20 Fly Tier Relationship Specialty Start Date End Date Selene Pierre MD [address] [place], [place] [address]3033 [phone] PCP - General Internal Medicine 06/03/14 Ismael Kidd (Rn)(Hist), RN Specialty Portable Sawyer Hematology/Oncology 08/30/17 Quin Nolan, DO [address] [place], [place] 978811 Hospice Physician Peripheral Vascular 01/26/19 Jennifer Arias MD [address] [place], [place] [address]03 Physician Internal Medicine 02/11/19 Ronit Rahman, DO [address] [place] [address] Physician Cardiology 02/11/19 Kj Rowe MD [address] [place] [address] Physician Pulmonary and Critical Care Medicine 04/29/19 Ronit Rahman, DO [address] [place] [address] Primary Staff Physician Cardiology 01/12/20 Fly Tier Relationship Specialty Start Date End Date Selene Pierre MD [address] [place], [place] [address]301 PCP - General Internal Medicine 06/03/14 Ismael Kidd (Rn)(Hist), RN Specialty Portable Sawyer Hematology/Oncology 08/30/17 Quin Nolan, DO [address] [place] [address] Hospice Physician Peripheral Vascular 01/26/19 Jennifer Arias MD [address] [place], [place] [address]863 Physician Internal Medicine 02/11/19 Ronit Rahman, DO [address] [place] [address] Physician Cardiology 02/11/19 Kj Rowe MD [address] [place] [address] Physician Pulmonary and Critical Care Medicine 04/29/19 Ronit Rahman, DO [address] [place] [address] Primary Staff Physician Cardiology 01/12/20 Fly Tier Relationship Specialty Start Date End Date Selene Pierre MD [address] [place] [address] PCP - General Internal Medicine 06/03/14 Ismael Kidd (Rn)(Hist), RN Specialty Portable Sawyer Hematology/Oncology 08/30/17 Quin Nolan, DO [address] [place] [address] Hospice Physician Peripheral Vascular 01/26/19 Jennifer Arias MD [address] [address] Physician Internal Medicine 02/11/19 Ronit Rahman, DO [address] [place] [address] Physician Cardiology 02/11/19 Kj Rowe MD [address] [place] [address] Physician Pulmonary and Critical Care Medicine 04/29/19 Ronit Rahman DO [address] [place] [address] Primary Staff Physician Cardiology 01/12/20 Fly Tier Relationship Specialty Start Date End Date Selene Pierre MD [address] [place] [address] PCP - General Internal Medicine 06/03/14 Ismael Kidd (Rn)(Hist), RN Specialty Portable Sawyer Hematology/Oncology 08/30/17 Quin Nolan, DO [address] [place], [place] [address] Hospice Physician Peripheral Vascular 01/26/19 Jennifer Arias MD [address] [place], [place] [address] Physician Internal Medicine 02/11/19 Ronit Rahman DO [address] [place] [address] Physician Cardiology 02/11/19 Kj Rowe MD [address] [place] [place], [place] 2[address]01 Physician Pulmonary and Critical Care Medicine 04/29/19 Ronit Rahman DO [address] [place] [address] Primary Staff Physician Cardiology 01/12/20 Fly Tier Relationship Specialty Start Date End Date Selene Pierre MD [address] [place], [place] 723261 PCP - General Internal Medicine 06/03/14 Ismael Kidd (Rn)(Hist), RN Specialty Portable Sawyer Hematology/Oncology 08/30/17 Quin Nolan, DO [address] [place], [place] 594461 Hospice Physician Peripheral Vascular 01/26/19 Jennifer Arias MD [address] [place], [place] [address]213 Physician Internal Medicine 02/11/19 Ronit Rahman, DO [address] [place] [address] Physician Cardiology 02/11/19 Kj Rowe MD [address] [place], [place] [address] Physician Pulmonary and Critical Care Medicine 04/29/19 Ronit Rahman DO [address] [place] [address] Primary Staff Physician Cardiology 01/12/20 Fly Tier Relationship Specialty Start Date End Date Selene Pierre MD [address] [place] [address] PCP - General Internal Medicine 06/03/14 Ismael Kidd (Rn)(Hist), RN Specialty Portable Sawyer Hematology/Oncology 08/30/17 Quin Nolan, DO [address] [place] [address] Hospice Physician Peripheral Vascular 01/26/19 Jennifer Arias MD [address] [place], [place] 14[address]93 Physician Internal Medicine 02/11/19 Ronit Rahman, DO [address] [place] [address] Physician Cardiology 02/11/19 Kj Rowe MD [address] [place], [place] 685111 Physician Pulmonary and Critical Care Medicine 04/29/19 Ronit Rahman, DO [address] [place] [address] Primary Staff Physician Cardiology 01/12/20 Fly Tier Relationship Specialty Start Date End Date Selene Pierre MD [address] [place] [address] PCP - General Internal Medicine 06/03/14 Ismael Kidd (Rn)(Hist), RN Specialty Portable Sawyer Hematology/Oncology 08/30/17 Quin Nolan, DO [address] [place], [place] 389[address] Hospice Physician Peripheral Vascular 01/26/19 Jennifer Arias MD [address] [place], [place] [address]343 Physician Internal Medicine 02/11/19 Ronit Rahman DO [address] [place] [address] Physician Cardiology 02/11/19 Kj Rowe MD [address] [facility] [place] [address] Physician Pulmonary and Critical Care Medicine 04/29/19 Ronit Rahman DO [address] [place] [address] Primary Staff Physician Cardiology 01/12/20 Fly Tier Relationship Specialty Start Date End Date Selene Pierre MD [address] [place] [address] PCP - General Internal Medicine 06/03/14 Ismael Kidd (Rn)(Hist), RN Specialty Portable Sawyer Hematology/Oncology 08/30/17 Quin Nolan, DO [address] [place] [address] Hospice Physician Peripheral Vascular 01/26/19 Jennifer Arias MD [address] [address] Physician Internal Medicine 02/11/19 Ronit Rahman DO [address] [place] [address] Physician Cardiology 02/11/19 Kj Rowe MD [address] [facility] [place] [place] [address] Physician Pulmonary and Critical Care Medicine 04/29/19 Ronit Rahman DO [address] [place] [address] Primary Staff Physician Cardiology 01/12/20 Fly Tier Relationship Specialty Start Date End Date Selene Pierre MD [address] [place] [address] PCP - General Internal Medicine 06/03/14 Ismael Kidd (Rn)(Hist), RN Specialty Portable Sawyer Hematology/Oncology 08/30/17 Quin Nolan, DO [address] [facility], [place] 782341 Hospice Physician Peripheral Vascular 01/26/19 Jennifer Arias MD [address] [place], [place] [address]323 Physician Internal Medicine 02/11/19 Ronit Rahman, DO [address] [place] [address] Physician Cardiology 02/11/19 Kj Rowe MD [address] [place] [address] Physician Pulmonary and Critical Care Medicine 04/29/19 Ronit Rahman, DO [address] [place] [address] Primary Staff Physician Cardiology 01/12/20 Fly Tier Relationship Specialty Start Date End Date Selene Pierre MD [address] [facility] [place] [address] PCP - General Internal Medicine 06/03/14 Ismael Kidd (Rn)(Hist), RN Specialty Portable Sawyer Hematology/Oncology 08/30/17 Quin Nolan, DO [address] [place] [address] Hospice Physician Peripheral Vascular 01/26/19 Jennifer Arias MD [address] [place], [place] 90[address]93 Physician Internal Medicine 02/11/19 Ronit Rahman, DO [address] [place] [address] Physician Cardiology 02/11/19 Kj Rowe MD [address] [place] [address] Physician Pulmonary and Critical Care Medicine 04/29/19 Ronit Rahman, DO [address] [place] [address] Primary Staff Physician Cardiology 01/12/20 Team Status: Active Member Role Status Dates Dr. Selene Pierre MD Family Provider Active Julio Arriaga AUTOMOTIVE SALES MANAGER, AUTOMOTIVE SALES MANAGER-C Primary Care Provider Active Team Status: Inactive Member Role Status Dates Dr. Selene Pierre MD Primary Care Provider, Referring Provider Active Patel BENOIT, PA Attending Provider Active Team Status: Inactive Member Role Status Dates Dr. Selene Pierre MD Primary Care Provider, Referring Provider Active Pablo Cruz PA, PA Attending Provider Active Team Status: Inactive Member Role Status Dates Dr. Selene Pierre MD Primary Care Provider Active Dr. Usama Sarmiento MD Attending Provider Active Team Status: Inactive Member Role Status Dates Julio Arriaga AUTOMOTIVE SALES MANAGER, AUTOMOTIVE SALES MANAGER-C Primary Care Provider, Referri ng Provider Active Kenya Clark PA, PA Attending Provider Active Team Status: Inactive Member Role Status Dates GIANNI CERVANTES MD Attending Provider Active Julio Arriaga AUTOMOTIVE SALES MANAGER, AUTOMOTIVE SALES MANAGER-C Primary Care Provider Active Fly Tier Relationship Specialty Start Date End Date Selene Pierre MD [address] [place], [place] 424381 PCP - General Internal Medicine 06/03/14 Ismael Kidd (Rn)(Hist), RN Specialty Portable Sawyer Hematology/Oncology 08/30/17 Quin Nolan, DO [address] [facility] [place] [place] 0[address] Hospice Physician Peripheral Vascular 01/26/19 Jennifer Arias MD [address] [address] Physician Internal Medicine 02/11/19 Ronit Rahman, [address] [place] [address] Physician Cardiology 02/11/19 Kj Rowe MD [address] [place], [place] 896271 Physician Pulmonary and Critical Care Medicine 04/29/19 Ronit Rahman, DO [address] [place], [place] [address] Primary Staff Physician Cardiology 01/12/20 Team Status: Inactive Member Role Status Dates Dr. Selene Pierre MD Referring Provider Active Jaci Warren AUTOMOTIVE SALES MANAGER, AUTOMOTIVE SALES MANAGER-C Attending Provider Active Julio Arriaga AUTOMOTIVE SALES MANAGER, AUTOMOTIVE SALES MANAGER-C Primary Care Provider Active Team Status: Inactive Member Role Status Dates Julio Arriaga AUTOMOTIVE SALES MANAGER, AUTOMOTIVE SALES MANAGER-C Primary Care Provider Active Jaci Warren AUTOMOTIVE SALES MANAGER, AUTOMOTIVE SALES MANAGER-C Attending Provider, Referalonzo g Provider Active Fly Tier Relationship Specialty Start Date End Date Julio Arriaga, BOAT HOP.REGULATORY LEADER [address] [place] [phone] PCP - General Internal Medicine 10/18/22 Ismael Kidd (Rn)(Hist), RN Specialty Portable Sawyer Hematology/Oncology 08/30/17 Quin Nolan, DO [address] [place] [address] Hospice Physician Peripheral Vascular 01/26/19 Jennifer Arias MD [address] [address] Physician Internal Medicine 02/11/19 Ronit Rahman DO [address] [place] [address] Physician Cardiology 02/11/19 Kj Rowe MD [address] [place], [place] [address] Physician Pulmonary and Critical Care Medicine 04/29/19 Ronit Rahman DO [address] [place], [place] [address]256 Primary Staff Physician Cardiology 01/12/20 Team Status: Active Member Role Status Dates GIANNI CERVANTES MD Referring Provider, Other Provider Active Julio Arriaga AUTOMOTIVE SALES MANAGER, AUTOMOTIVE SALES MANAGER-C Primary Care Provider Active Dr. Isaac Nichols MD Attending Provider Active Team Status: Active Member Role Status Dates GIANNI CERVANTES MD Attending Provider, Referring Prov ider Active Julio Arriaga AUTOMOTIVE SALES MANAGER, AUTOMOTIVE SALES MANAGER-C Primary Care Provider Active Team Status: Inactive Member Role Status Dates GIANNI CERVANTES MD Attending Provider, Referring Prov ider Active Julio Arriaga AUTOMOTIVE SALES MANAGER, AUTOMOTIVE SALES MANAGER-C Primary Care Provider Active Fly Tier Relationship Specialty Start Date End Date Julio Arriaga, BOAT HOP.REGULATORY LEADER [address] [place] [phone] PCP - General Internal Medicine 10/18/22 Ismael Kidd (Rn)(Hist), RN Specialty Portable Sawyer Hematology/Oncology 08/30/17 Quin Nolan, DO [address] [place] [address] Hospice Physician Peripheral Vascular 01/26/19 Jennifer Arias MD [address] [address] Physician Internal Medicine 02/11/19 [facility] [address] [place] [address] Physician Cardiology 02/11/19 Kj Rowe MD [address] [place] [address] Physician Pulmonary and Critical Care Medicine 04/29/19 JosiahRonit abdul [address] [place] [address] Primary Staff Physician Cardiology 01/12/20 Fly Tier Relationship Specialty Start Date End Date Julio Arriaga, BOAT HOP.REGULATORY LEADER [address] [place] [phone] PCP - General Internal Medicine 10/18/22 Ismael Kidd (Rn)(Hist), RN Specialty Portable Sawyer Hematology/Oncology 08/30/17 Quin Nolan, DO [address] [place], [place] 494[address] Hospice Physician Peripheral Vascular 01/26/19 Jennifer Arias MD [address] [place] [address] Physician Internal Medicine 02/11/19 JosiahRonit abdul, DO [address] [place] [address] Physician Cardiology 02/11/19 Kj Rowe MD [address] [facility] [place], [place] [address] Physician Pulmonary and Critical Care Medicine 04/29/19 Ronit Rahman, DO [address] [place], [place] [address] Primary Staff Physician Cardiology 01/12/20 Team Status: Active Member Role Status Dates Julio Arriaga AUTOMOTIVE SALES MANAGER, AUTOMOTIVE SALES MANAGER-C Primary Care Provider, Referri ng Provider Active Dr. Andrez Pitts , Attending Provider, Other Prov ider Active Team Status: Inactive Member Role Status Dates Julio Arriaga AUTOMOTIVE SALES MANAGER, AUTOMOTIVE SALES MANAGER-C Primary Care Provider, Referri ng Provider Active Dr. Andrez Pitts , Attending Provider Active Fly Tier Relationship Specialty Start Date End Date Julio Arriaga, BOAT HOP.REGULATORY LEADER [address] [place] [phone] PCP - General Internal Medicine 10/18/22 Ismael Kidd (Rn)(Hist), RN Specialty Portable Sawyer Hematology/Oncology 08/30/17 Quin Nolan, DO [address] [facility] [place] [phone] Hospice Physician Peripheral Vascular 01/26/19 Jennifer Arias MD [address] [facility] [address] [place], [place] [address] Physician Internal Medicine 02/11/19 Ronit Rahman, DO [address] [place] [address] Physician Cardiology 02/11/19 Kj Rowe MD [address] [place], [place] 828041 Physician Pulmonary and Critical Care Medicine 04/29/19 Ronit Rahman DO [address] [place] [address] Primary Staff Physician Cardiology 01/12/20 Fly Tier Relationship Specialty Start Date End Date Julio Arriaga, BOAT HOP.REGULATORY LEADER [address] [place] [phone] PCP - General Internal Medicine 10/18/22 Ismael Kidd (Rn)(Hist), RN Specialty Portable Sawyer Hematology/Oncology 08/30/17 Quin Nolan, DO [address] [place], [place] [address]671 Hospice Physician Peripheral Vascular 01/26/19 Jennifer Arias MD [address] [address] Physician Internal Medicine 02/11/19 Ronit Rahman DO [address] [place] [address] Physician Cardiology 02/11/19 Kj Rowe MD [address] [place], [place] [address]241 Physician Pulmonary and Critical Care Medicine 04/29/19 Ronit Rahman DO [address] [place] [address] Primary Staff Physician Cardiology 01/12/20 Team Status: Inactive Member Role Status Dates Julio Arriaga AUTOMOTIVE SALES MANAGER, AUTOMOTIVE SALES MANAGER-C Primary Care Provider, Referri ng Provider Active Jaci Warren AUTOMOTIVE SALES MANAGER, AUTOMOTIVE SALES MANAGER-C Attending Provider Active Team Status: Inactive Member Role Status Dates Julio Arriaga AUTOMOTIVE SALES MANAGER, AUTOMOTIVE SALES MANAGER-C Primary Care Provider, Referri ng Provider Active Pablo BENOIT, PA Attending Provider Active Team Status: Inactive Member Role Status Dates Julio Arriaga AUTOMOTIVE SALES MANAGER, AUTOMOTIVE SALES MANAGER-C Primary Care Provider Active Dr. Usama Sarmiento MD Attending Provider Active Team Status: Inactive Member Role Status Dates Julio Arriaga AUTOMOTIVE SALES MANAGER, AUTOMOTIVE SALES MANAGER-C Primary Care Provider Active Pablo BENOIT, PA Attending Provider, Referring Prov ider Active Fly Tier Relationship Specialty Start Date End Date Julio Arriaga, BOAT HOP.REGULATORY LEADER [address] [place] [phone] PCP - General Internal Medicine 10/18/22 Ismael Kidd (Rn)(Hist), RN Specialty Portable Sawyer Hematology/Oncology 08/30/17 Quin Nolan, DO [address] [place] [address] Hospice Physician Peripheral Vascular 01/26/19 Jennifer Arias MD [address] [address] Physician Internal Medicine 02/11/19 Ronit Rahman, [address] [place] [address] Physician Cardiology 02/11/19 Kj Rowe MD [address] [facility] [place] [place] [address] Physician Pulmonary and Critical Care Medicine 04/29/19 Ronit Rahman, [address] [place] [address] Primary Staff Physician Cardiology 01/12/20 Fly Tier Relationship Specialty Start Date End Date Julio Arriaga, BOAT HOP.REGULATORY LEADER [address] [place] [phone] PCP - General Internal Medicine 10/18/22 Ismael Kidd (Rn)(Hist), RN Specialty Portable Sawyer Hematology/Oncology 08/30/17 Quin Nolan, DO [address] [facility] [place] [place] [address] Hospice Physician Peripheral Vascular 01/26/19 Jennifer Arias MD [address] [place] [address] Physician Internal Medicine 02/11/19 Ronit Rahman, DO [address] [place] [address] Physician Cardiology 02/11/19 Kj Rowe MD [address] [facility] [place], [place] [address] Physician Pulmonary and Critical Care Medicine 04/29/19 Ronit Rahman, DO [address] [place] [address] Primary Staff Physician Cardiology 01/12/20 Fly Tier Relationship Specialty Start Date End Date Julio Arriaga, BOAT HOP.REGULATORY LEADER [address] [place] [phone] PCP - General Internal Medicine 10/18/22 Ismael Kidd (Rn)(Hist), RN Specialty Portable Sawyer Hematology/Oncology 08/30/17 Quin Nolan, DO [address] [facility] [place] [address] Hospice Physician Peripheral Vascular 01/26/19 Jennifer Arias MD [address] [facility] [address] [place], [place] [address] Physician Internal Medicine 02/11/19 Ronit Rahman, DO [address] [place] [address] Physician Cardiology 02/11/19 Kj Rowe MD [address] [facility] [place] [address] Physician Pulmonary and Critical Care Medicine 04/29/19 Ronit Rahman, DO [address] [place], [place] [address] Primary Staff Physician Cardiology 01/12/20 Team Status: Inactive Member Role Status Dates Julio Arriaga AUTOMOTIVE SALES MANAGER, AUTOMOTIVE SALES MANAGER-C Primary Care Provider, Referri ng Provider Active Dr. Michael Rawls DO Attending Provider Active Team Status: Inactive Member Role Status Dates Julio Arriaga AUTOMOTIVE SALES MANAGER, AUTOMOTIVE SALES MANAGER-C Primary Care Provider Active Dr. Michael Rawls DO Attending Provider, Referring Provider Active Team Status: Active Member Role Status Dates Julio Arriaga AUTOMOTIVE SALES MANAGER, AUTOMOTIVE SALES MANAGER-C Primary Care Provider Active Dr. Michael Rawls DO Admit Provider, Attending Provider, Other Provider Active Team Status: Active Member Role Status Dates Julio Arriaga AUTOMOTIVE SALES MANAGER, AUTOMOTIVE SALES MANAGER-C Primary Care Provider Active Dr. Michael Rawls DO Admit Provider, Attending Provider, Referring Provider, Other Provider Active Team Status: Inactive Member Role Status Dates Julio Arriaga AUTOMOTIVE SALES MANAGER, AUTOMOTIVE SALES MANAGER-C Primary Care Provider Active Dr. Michael Rawls DO Admit Provider, Attending Provider, Referring Provider Active Fly Tier Relationship Specialty Start Date End Date Julio Arriaga, BOAT HOP.REGULATORY LEADER [address] [place] [phone] PCP - General Internal Medicine 10/18/22 Ismael Kidd (Rn)(Hist), RN Specialty Portable Sawyer Hematology/Oncology 08/30/17 Quin Nolan, DO [address] [facility] [place] [address] Hospice Physician Peripheral Vascular 01/26/19 Jennifer Arias MD [address] [address] Physician Internal Medicine 02/11/19 Ronit Rhaman DO [address] [place], [place] 1985[address] Physician Cardiology 02/11/19 Kj Rowe MD [address] [facility] [place], [place] [address] Physician Pulmonary and Critical Care Medicine 04/29/19 Ronit Rahman DO [address] [place] [address] Primary Staff Physician Cardiology 01/12/20 Fly Tier Relationship Specialty Start Date End Date Julio Arriaga, BOAT HOP.REGULATORY LEADER [address] [place] [phone] PCP - General Internal Medicine 10/18/22 Ismael Kidd (Rn)(Hist), RN Specialty Portable Sawyer Hematology/Oncology 08/30/17 Quin Nolan DO [address] [place] [address] Hospice Physician Peripheral Vascular 01/26/19 Jennifer Arias MD [address] [address] Physician Internal Medicine 02/11/19 Ronit Rahman DO [address] [place] [address] Physician Cardiology 02/11/19 Kj Rowe MD [address] [place] [address] Physician Pulmonary and Critical Care Medicine 04/29/19 Ronit Rahman DO [address] [place] [address] Primary Staff Physician Cardiology 01/12/20 Fly Tier Relationship Specialty Start Date End Date Julio Arriaga, BOAT HOP.REGULATORY LEADER [address] [place] [phone] PCP - General Internal Medicine 10/18/22 Ismael Kidd (Rn)(Hist), RN Specialty Portable Sawyer Hematology/Oncology 08/30/17 Quin Nolan, DO [address] [place], [place] 9[address]11 Hospice Physician Peripheral Vascular 01/26/19 Jennifer Arias MD [address] [facility] [address] [place] [address] Physician Internal Medicine 02/11/19 Ronit Rahman DO [address] [place] [address] Physician Cardiology 02/11/19 Kj Rowe MD [address] [place], [place] 97[address]71 Physician Pulmonary and Critical Care Medicine 04/29/19 Ronit Rahman DO [address] [place] [address] Primary Staff Physician Cardiology 01/12/20 Fly Tier Relationship Specialty Start Date End Date Julio Arriaga, BOAT HOP.[facility] [address] [place] [phone] PCP - General Internal Medicine 10/18/22 Ismael Kidd (Rn)(Hist), RN Specialty Portable Sawyer Hematology/Oncology 08/30/17 Quin Nloan, DO [address] [place], [place] [address] Hospice Physician Peripheral Vascular 01/26/19 Jennifer Arias MD [address] [facility] [address] [place] [address] Physician Internal Medicine 02/11/19 Ronit Rahman DO [address] [place] [address] Physician Cardiology 02/11/19 Kj Rowe MD [address] [facility] [place], [place] 976451 Physician Pulmonary and Critical Care Medicine 04/29/19 Ronit Rahman DO [address] [place] [address] Primary Staff Physician Cardiology 01/12/20 Fly Tier Relationship Specialty Start Date End Date Julio Arriaga, BOAT HOP.REGULATORY LEADER [address] [place] [phone] PCP - General Internal Medicine 10/18/22 Ismael Kidd (Rn)(Hist), RN Specialty Portable Sawyer Hematology/Oncology 08/30/17 Quin Nolan DO [address] [facility] [place], [place] [address]33[address] Hospice Physician Peripheral Vascular 01/26/19 Jennifer Arias MD [address]125 [facility] [address] [place] [address] Physician Internal Medicine 02/11/19 Ronit Rahman DO [address] [place] [address] Physician Cardiology 02/11/19 Kj Rowe MD [address] [place] [address] Physician Pulmonary and Critical Care Medicine 04/29/19 Ronit Rahman DO [address] [place] [address] Primary Staff Physician Cardiology 01/12/20 Fly Tier Relationship Specialty Start Date End Date Julio Arriaga, BOAT HOP.REGULATORY LEADER [address] [place] [phone] PCP - General Internal Medicine 10/18/22 Ismael Kidd (Rn)(Hist), RN Specialty Portable Sawyer Hematology/Oncology 08/30/17 Quin Nolan DO [address] [place], [place] 128401 Hospice Physician Peripheral Vascular 01/26/19 Jennifer Arias MD [address] [place] [address] Physician Internal Medicine 02/11/19 Ronit Rahman DO [address] [place] [address] Physician Cardiology 02/11/19 Kj Rowe MD [address] [facility] [place], [place] 283291 Physician Pulmonary and Critical Care Medicine 04/29/19 Ronit Rahman DO [address] [place] [address] Primary Staff Physician Cardiology 01/12/20 Fly Tier Relationship Specialty Start Date End Date Julio Arriaga, BOAT HOP.REGULATORY LEADER [address] [place] [phone] PCP - General Internal Medicine 10/18/22 Ismael Kidd (Rn)(Hist), RN Specialty Portable Sawyer Hematology/Oncology 08/30/17 Quin Nolan DO [address] [place], [place] 547861 Hospice Physician Peripheral Vascular 01/26/19 Jennifer Arias MD 4125 [facility] [address] [place], [place] 436973 Physician Internal Medicine 02/11/19 Ronit Rahman DO [address] [place], [place] 39563256 Physician Cardiology 02/11/19 Kj Rowe MD [address] [place], [place] 543501 Physician Pulmonary and Critical Care Medicine 04/29/19 Ronit Rahman DO [address] [place] [address] Primary Staff Physician Cardiology 01/12/20 Fly Tier Relationship Specialty Start Date End Date Selene Pierre MD [address] [place], [place] 404731 PCP - General Internal Medicine 06/03/14 10/17/22 Ismael Kidd (Rn)(Hist), RN Specialty Portable Sawyer Hematology/Oncology 08/30/17 Quin Nolan DO [address] [place], [place] 380901 Hospice Physician Peripheral Vascular 01/26/19 Jennifer Arias MD 4125 [facility] [address] [place] [address] Physician Internal Medicine 02/11/19 Ronit Rahman DO [address] [place] [address] Physician Cardiology 02/11/19 Kj Rowe MD [address] [place], [place] 158581 Physician Pulmonary and Critical Care Medicine 04/29/19 Ronit Rahman DO [address] [place] [address] Primary Staff Physician Cardiology 01/12/20 Fly Tier Relationship Specialty Start Date End Date Selene Pierre MD [address] [place] [address] PCP - General Internal Medicine 06/03/14 10/17/22 Ismael Kidd (Rn)(Hist), RN Specialty Portable Sawyer Hematology/Oncology 08/30/17 Quin Nolan DO [address] [place] [address] Hospice Physician Peripheral Vascular 01/26/19 Jennifer Arias MD [address] [address] Physician Internal Medicine 02/11/19 Ronit Rahman DO [address] [place] [address] Physician Cardiology 02/11/19 Kj Rowe MD [address] [place] [address] Physician Pulmonary and Critical Care Medicine 04/29/19 Ronit Rahman DO [address] [place] [address] Primary Staff Physician Cardiology 01/12/20 Fly Tier Relationship Specialty Start Date End Date Julio Arriaga APRN.REGULATORY LEADER [address] [place] [address] PCP - General Internal Medicine 10/18/22 Ismael Kidd (Rn)(Hist), RN Specialty Portable Sawyer Hematology/Oncology 08/30/17 Quin Nolan DO [address] [place], [place] 398131 Hospice Physician Peripheral Vascular 01/26/19 [place] [address] [place] [address] Physician Internal Medicine 02/11/19 Ronit Rahman DO [address] [place] [address] Physician Cardiology 02/11/19 Kj Rowe MD [address] [place] [address] Physician Pulmonary and Critical Care Medicine 04/29/19 Ronit Rahman DO [address] [place] [address] Primary Staff Physician Cardiology 01/12/20 Team Status: Inactive Member Role Status Dates Julio Arriaga AUTOMOTIVE SALES MANAGER, AUTOMOTIVE SALES MANAGER-C Referring Provider Active Dr. Andrez Pitts DO Attending Provider Active Team Status: Inactive Member Role Status Dates Dr. Michael Rawls DO Attending Provider Active Team Status: Inactive Member Role Status Dates Julio Arriaga AUTOMOTIVE SALES MANAGER, AUTOMOTIVE SALES MANAGER-C Primary Care Provider Active Dr. Andrez Pitts DO Attending Provider, Referring Provider Active Fly Tier Relationship Specialty Start Date End Date Julio Arriaga, BOAT HOP.REGULATORY LEADER [address] [place] [phone] PCP - General Internal Medicine 10/18/22 Ismael Kidd (Rn)(Hist), RN Specialty Portable Sawyer Hematology/Oncology 08/30/17 Quin Nolan, DO [address] [facility] [place] [place] [address] Hospice Physician Peripheral Vascular 01/26/19 Jennifer Arias MD [address] [address] Physician Internal Medicine 02/11/19 Ronit Rahman DO [address] [place] [address] Physician Cardiology 02/11/19 Kj Rowe MD [address] [facility] [place], [place] 646891 Physician Pulmonary and Critical Care Medicine 04/29/19 Ronit Rahman DO [address] [place] [address] Primary Staff Physician Cardiology 01/12/20 Fly Tier Relationship Specialty Start Date End Date Julio Arriaga, BOAT HOP.REGULATORY LEADER [address] [place] [address] PCP - General Internal Medicine 10/18/22 Ismael Kidd (Rn)(Hist), RN Specialty Portable Sawyer Hematology/Oncology 08/30/17 Quin Nolan, DO [address] [facility] [place], [place] 792871 Hospice Physician Peripheral Vascular 01/26/19 Jennifer Arias MD [address] [facility] [address] [place], [place] 477393 Physician Internal Medicine 02/11/19 Ronit Rahman DO [address] [place], [place] 11088256 Physician Cardiology 02/11/19 Kj Rowe MD [address] [facility] [place] [place] 037151 Physician Pulmonary and Critical Care Medicine 04/29/19 Ronit Rahman DO [address] [place] [address] Primary Staff Physician Cardiology 01/12/20 Fly Tier Relationship Specialty Start Date End Date Julio Arriaga, BOAT HOP.REGULATORY LEADER [address] [place] [phone] PCP - General Internal Medicine 10/18/22 Ismael Kidd (Rn)(Hist), RN Specialty Portable Sawyer Hematology/Oncology 08/30/17 Quin Nolan DO [address] [facility] [place], [place] 622591 Hospice Physician Peripheral Vascular 01/26/19 Jennifer Arias MD [address] [facility] [address] [place] [address] Physician Internal Medicine 02/11/19 Ronit Rahman DO [address] [place] [address] Physician Cardiology 02/11/19 Kj Rowe MD [address] [place] [address] Physician Pulmonary and Critical Care Medicine 04/29/19 Ronit Rahman DO [address] [place] [address] Primary Staff Physician Cardiology 01/12/20 Fly Tier Relationship Specialty Start Date End Date Julio Arriaga, BOAT HOP.REGULATORY LEADER [address] [place] [address] PCP - General Internal Medicine 10/18/22 Ismael Kidd (Rn)(Hist), RN Specialty Portable Sawyer Hematology/Oncology 08/30/17 Quin Nolan DO [address] [place] [address] Hospice Physician Peripheral Vascular 01/26/19 Jennifer Arias MD [address] [address] Physician Internal Medicine 02/11/19 Ronit Rahman DO [address] [place] [address] Physician Cardiology 02/11/19 Kj Rowe MD [address] [place] [address] Physician Pulmonary and Critical Care Medicine 04/29/19 Ronit Rahman DO [address] [place] [address] Primary Staff Physician Cardiology 01/12/20 Team Status: Inactive Member Role Status Dates Julio Arriaga AUTOMOTIVE SALES MANAGER, AUTOMOTIVE SALES MANAGER-C Primary Care Provider Active Dr. Pawel Cason MD Emergency Provider Active Fly Tier Relationship Specialty Start Date End Date Julio Arriaga, BOAT HOP.REGULATORY LEADER [address] [place] [phone] PCP - General Internal Medicine 10/18/22 Ismael Kidd (Rn)(Hist), RN Specialty Portable Sawyer Hematology/Oncology 08/30/17 Quin Nolan, DO [address] [facility] [place], [place] 898571 Hospice Physician Peripheral Vascular 01/26/19 Jennifer Arias MD [address] [address] Physician Internal Medicine 02/11/19 Ronit Rahman DO [address] [place] [address] Physician Cardiology 02/11/19 Kj Rowe MD [address] [facility] [place] [address]151 Physician Pulmonary and Critical Care Medicine 04/29/19 Ronit Rahman DO [address] [place] [address] Primary Staff Physician Cardiology 01/12/20 Fly Tier Relationship Specialty Start Date End Date Julio Arriaga, BOAT HOP.REGULATORY LEADER [address] [place] [address] PCP - General Internal Medicine 10/18/22 Ismael Kidd (Rn)(Hist), RN Specialty Portable Sawyer Hematology/Oncology 08/30/17 Quin Nolan, DO [address] [place], [place] 101671 Hospice Physician Peripheral Vascular 01/26/19 Jennifer Arias MD [address] [facility] [address] [place], [place] 322793 Physician Internal Medicine 02/11/19 Ronit Rahman DO [address] [place], [place] 9[address]17256 Physician Cardiology 02/11/19 Kj Rowe MD [address] [facility] [place], [place] 956971 Physician Pulmonary and Critical Care Medicine 04/29/19 Ronit Rahman DO [address] [place] [address] Primary Staff Physician Cardiology 01/12/20 Fly Tier Relationship Specialty Start Date End Date Julio Arriaga, BOAT HOP.REGULATORY LEADER [address] [place] [phone] PCP - General Internal Medicine 10/18/22 Ismael Kidd (Rn)(Hist), RN Specialty Portable Sawyer Hematology/Oncology 08/30/17 Quin Nolan DO [address] [facility] [place], [place] 646331 Hospice Physician Peripheral Vascular 01/26/19 Jennifer Arias MD [address] [facility] [address] [place] [address] Physician Internal Medicine 02/11/19 Ronit Rahman DO [address] [place] [address] Physician Cardiology 02/11/19 Kj Rowe MD [address] [place] [place], [place] 395311 Physician Pulmonary and Critical Care Medicine 04/29/19 Ronit Rahman DO [address] [place] [address] Primary Staff Physician Cardiology 01/12/20 Andrez Pitts DO [address] [facility] [address] [place], [place] 481011 Gastroenterology 11/21/23 Fly Tier Relationship Specialty Start Date End Date Julio Arriaga, BOAT HOP.REGULATORY LEADER [address] [place] [phone] PCP - General Internal Medicine 10/18/22 Ismael Kidd (Rn)(Hist), RN Specialty Portable Sawyer Hematology/Oncology 08/30/17 Quin Nolan DO [address] [place], [place] 534041 Hospice Physician Peripheral Vascular 01/26/19 Jennifer Arias MD 4125 [facility] [address] [place] [address] Physician Internal Medicine 02/11/19 Ronit Rahman DO [address] [place] [address] Physician Cardiology 02/11/19 Kj Rowe MD [address] [address] Physician Pulmonary and Critical Care Medicine 04/29/19 Ronit Rahman DO [address] [place] [address] Primary Staff Physician Cardiology 01/12/20 Andrez Pitts DO 1761 [facility] [address] [place], [place] 148071 Gastroenterology 11/21/23 Fly Tier Relationship Specialty Start Date End Date Julio Arriaga, BOAT HOP.REGULATORY LEADER [address] [place] [address] PCP - General Internal Medicine 10/18/22 Ismael Kidd (Rn)(Hist), RN Specialty Portable Sawyer Hematology/Oncology 08/30/17 Quin Nolan DO [address] [place], [place] 702331 Hospice Physician Peripheral Vascular 01/26/19 Jennifer Arias MD 4125 [facility] [address] [place] [address] Physician Internal Medicine 02/11/19 Ronit Rahman DO [address] [place], [place] 12490256 Physician Cardiology 02/11/19 Kj Rowe MD [address] [address] Physician Pulmonary and Critical Care Medicine 04/29/19 Ronit Rahman DO [address] [place] [address] Primary Staff Physician Cardiology 01/12/20 Andrez Pitts DO 1761 [facility] [address] [place], [place] 660921 Gastroenterology 11/21/23 Fly Tier Relationship Specialty Start Date End Date Julio Arriaga, BOAT HOP.REGULATORY LEADER [address] [place] [phone] PCP - General Internal Medicine 10/18/22 Ismael Kidd (Rn)(Hist), RN Specialty Portable Sawyer Hematology/Oncology 08/30/17 Quin Nolan DO [address] [place] [address] Hospice Physician Peripheral Vascular 01/26/19 Jennifer Arias MD [address] [address] Physician Internal Medicine 02/11/19 Ronit Rahman DO [address] [place], [place] 19469256 Physician Cardiology 02/11/19 Kj Rowe MD [address] [place] [address] Physician Pulmonary and Critical Care Medicine 04/29/19 Ronit Rahman DO [address] [place], [place] 70082256 Primary Staff Physician Cardiology 01/12/20 Andrez Pitts DO 1761 [facility] [address] 7[address] Gastroenterology 11/21/23 Fly Tier Relationship Specialty Start Date End Date Julio Arriaga, BOAT HOP.REGULATORY LEADER [address] [place] [address] PCP - General Internal Medicine 10/18/22 Ismael Kidd (Rn)(Hist), RN Specialty Portable Sawyer Hematology/Oncology 08/30/17 Quin Nolan, DO [address] [place], [place] 076701 Hospice Physician Peripheral Vascular 01/26/19 [place] [address] [place] [address] Physician Internal Medicine 02/11/19 Ronit Rahman DO [address] [place], [place] 79096256 Physician Cardiology 02/11/19 Kj Rowe MD [address] [facility] [place], [place] 52370[address] Physician Pulmonary and Critical Care Medicine 04/29/19 Ronit Rahman DO [address] [place] [address] Primary Staff Physician Cardiology 01/12/20 Andrez Pitts, DO 1761 [facility] [address] [address] Gastroenterology 11/21/23 Fly Tier Relationship Specialty Start Date End Date Julio Arriaga, BOAT HOP.REGULATORY LEADER [address] [place] [address] PCP - General Internal Medicine 10/18/22 Ismael Kidd (Rn)(Hist), RN Specialty Portable Sawyer Hematology/Oncology 08/30/17 Quin Nolan, DO [address] [facility] [place], [place] 43550[address] Hospice Physician Peripheral Vascular 01/26/19 Jennifer Arias MD [address] [facility] 209 [place], [place] 560583 Physician Internal Medicine 02/11/19 Ronit Rahman DO [address] [place], [place] 58536256 Physician Cardiology 02/11/19 Kj Rowe MD [address] [place] [address] Physician Pulmonary and Critical Care Medicine 04/29/19 Ronit Rahman DO [address] [place], [place] 56911256 Primary Staff Physician Cardiology 01/12/20 Andrez Pitts DO 1761 [facility] [address] [place] [address] Gastroenterology 11/21/23 Fly Tier Relationship Specialty Start Date End Date Selene Pierre MD [address] [place] [address] PCP - General Internal Medicine 06/03/14 10/17/22 Ismael Kidd (Rn)(Hist), RN Specialty Portable Sawyer Hematology/Oncology 08/30/17 Quin Nolan DO [address] [place], [place] 43001691 Hospice Physician Peripheral Vascular 01/26/19 Jennifer Arias MD 4125 [facility] [address] [place], [place] 974993 Physician Internal Medicine 02/11/19 Ronit Rahman DO [address] [place], [place] 59427256 Physician Cardiology 02/11/19 Kj Rowe MD [address] [place], [place] 844691 Physician Pulmonary and Critical Care Medicine 04/29/19 Ronit Rahman DO [address] [place] [address] Primary Staff Physician Cardiology 01/12/20 Fly Tier Relationship Specialty Start Date End Date Julio Arriaga, BOAT HOP.REGULATORY LEADER [address] [place] [address] PCP - General Internal Medicine 10/18/22 Ismael Kidd (Rn)(Hist), RN Specialty Portable Sawyer Hematology/Oncology 08/30/17 Quin Nolan DO [address] [place] [place], [place] 213221 Hospice Physician Peripheral Vascular 01/26/19 Jennifer Arias MD [address] [address] Physician Internal Medicine 02/11/19 Ronit Rahman DO [address] [place] [address] Physician Cardiology 02/11/19 Kj Rowe MD [address] [place] [place], [place] 208941 Physician Pulmonary and Critical Care Medicine 04/29/19 Ronit Rahman DO [address] [place] [address] Primary Staff Physician Cardiology 01/12/20 Andrez Pitts DO 1761 [facility] [address] [place], [place] 837951 Gastroenterology 11/21/23 Fly Tier Relationship Specialty Start Date End Date Julio Arriaga, BOAT HOP.REGULATORY LEADER [address] [place] [address] PCP - General Internal Medicine 10/18/22 Ismael Kidd (Rn)(Hist), RN Specialty Portable Sawyer Hematology/Oncology 08/30/17 Quin Nolan DO [address] [place] [address] Hospice Physician Peripheral Vascular 01/26/19 Jennifer Arias MD [address] [address] Physician Internal Medicine 02/11/19 Ronit Rahman DO [address] [place], [place] 82174256 Physician Cardiology 02/11/19 Kj Rowe MD [address] [place] [address] Physician Pulmonary and Critical Care Medicine 04/29/19 Ronit Rahman DO [address] [place] [address] Primary Staff Physician Cardiology 01/12/20 Andrez Pitts DO 1761 [facility] [address] [place] [address] Gastroenterology 11/21/23 Fly Tier Relationship Specialty Start Date End Date Julio Arriaga, BOAT HOP.REGULATORY LEADER [address] [place] [phone] PCP - General Internal Medicine 10/18/22 Ismael Kidd (Rn)(Hist), RN Specialty Portable Sawyer Hematology/Oncology 08/30/17 Quin Nolan DO [address] [place] [address] Hospice Physician Peripheral Vascular 01/26/19 Jennifer Arias MD [address] [address] Physician Internal Medicine 02/11/19 Ronit Rahman DO [address] [place], [place] 41956256 Physician Cardiology 02/11/19 Kj Rowe MD [address] [place] 515591 Physician Pulmonary and Critical Care Medicine 04/29/19 Ronit Rahman DO [address] [place], [place] 35435256 Primary Staff Physician Cardiology 01/12/20 Andrez Pitts DO [address] 830511 Gastroenterology 11/21/23 Fly Tier Relationship Specialty Start Date End Date Julio Arriaga, BOAT HOP.REGULATORY LEADER [address] [place] [address] PCP - General Internal Medicine 10/18/22 Ismael Kidd (Rn)(Hist), RN Specialty Portable Sawyer Hematology/Oncology 08/30/17 Quin Nolan, DO [address] [facility] [place], [place] 598611 Hospice Physician Peripheral Vascular 01/26/19 Jennifer Arias MD 4125 [facility] [address] [place] [address] Physician Internal Medicine 02/11/19 Ronit Rahman DO [address] [place] [address] Physician Cardiology 02/11/19 Kj Rowe MD [address] [facility] [place] [address] Physician Pulmonary and Critical Care Medicine 04/29/19 Ronit Rahman DO [address] [place] [address] Primary Staff Physician Cardiology 01/12/20 Andrez Pitts, DO [address]61 [facility] [address] [place], [place] 626041 Gastroenterology 11/21/23 Fly Tier Relationship Specialty Start Date End Date Julio Arriaga, BOAT HOP.REGULATORY LEADER [address] [place] [address] PCP - General Internal Medicine 10/18/22 Ismael Kidd (Rn)(Hist), RN Specialty Portable Sawyer Hematology/Oncology 08/30/17 Quin Nolan, DO [address] [place] [address] Hospice Physician Peripheral Vascular 01/26/19 Jennifer Arias MD 4125 [facility] [address] [place] [address] Physician Internal Medicine 02/11/19 Ronit Rahman DO [address] [place], [place] 41345256 Physician Cardiology 02/11/19 Kj Rowe MD [address] [place], [place] 068901 Physician Pulmonary and Critical Care Medicine 04/29/19 Ronit Rahman DO [address] [place] [address] Primary Staff Physician Cardiology 01/12/20 Andrez Pitts DO [address] [facility] [address] [place], [place] 961741 Gastroenterology 11/21/23 Fly Tier Relationship Specialty Start Date End Date Julio Arriaga, BOAT HOP.REGULATORY LEADER [address] [place] [address] PCP - General Internal Medicine 10/18/22 Ismael Kidd (Rn)(Hist), RN Specialty Portable Sawyer Hematology/Oncology 08/30/17 Quin Nolan DO [address] [place], [place] 997161 Hospice Physician Peripheral Vascular 01/26/19 Jennifer Arias MD 4125 [facility] [address] [place], [place] 998023 Physician Internal Medicine 02/11/19 Ronit Rahman DO [address] [place], [place] 34922256 Physician Cardiology 02/11/19 Kj Rowe MD [address] [place] [place], [place] 913551 Physician Pulmonary and Critical Care Medicine 04/29/19 Ronit Rahman DO [address] [place] [address] Primary Staff Physician Cardiology 01/12/20 Andrez Pitts DO [address] 6617[address] Gastroenterology 11/21/23 Fly Tier Relationship Specialty Start Date End Date Julio Arriaga, BOAT HOP.REGULATORY LEADER [address] [place] [phone] PCP - General Internal Medicine 10/18/22 Ismael Kidd (Rn)(Hist), RN Specialty Portable Sawyer Hematology/Oncology 08/30/17 Quin Nolan DO [address] [address] Hospice Physician Peripheral Vascular 01/26/19 Jennifer Arias MD [address] [address] Physician Internal Medicine 02/11/19 Ronit Rahman DO [address] [place] [address] Physician Cardiology 02/11/19 Kj Rowe MD [address] [place] [address] Physician Pulmonary and Critical Care Medicine 04/29/19 Ronit Rahman DO [address] [place] [address] Primary Staff Physician Cardiology 01/12/20 Andrez Pitts DO 1761 [facility] [address] [place] [address] Gastroenterology 11/21/23 Fly Tier Relationship Specialty Start Date End Date Julio Arriaga, BOAT HOP.REGULATORY LEADER [address] [place] [phone] PCP - General Internal Medicine 10/18/22 Ismael Kidd (Rn)(Hist), RN Specialty Portable Sawyer Hematology/Oncology 08/30/17 Quin Nolan DO [address] [facility] [place], [place] 758301 Hospice Physician Peripheral Vascular 01/26/19 Jennifer Arias MD 4125 [facility] [address] [place] [address] Physician Internal Medicine 02/11/19 Ronit Rahman DO [address] [place] [address] Physician Cardiology 02/11/19 Kj Rowe MD [address] [place] [address] Physician Pulmonary and Critical Care Medicine 04/29/19 Ronit Rahman DO [address] [place] [address] Primary Staff Physician Cardiology 01/12/20 Andrez Pitts DO 1761 [facility] [address] [place], [place] 842951 Gastroenterology 11/21/23 Fly Tier Relationship Specialty Start Date End Date Julio Arriaga, BOAT HOP.REGULATORY LEADER [address] [place] [address]1568 PCP - General Internal Medicine 10/18/22 Ismael Kidd (Rn)(Hist), RN Specialty Portable Sawyer Hematology/Oncology 08/30/17 Quin Nolan DO [address] [place] 32710691 Hospice Physician Peripheral Vascular 01/26/19 Jennifer Arias MD [address] [address] Physician Internal Medicine 02/11/19 Ronit Rahman DO [address] [place], [place] 83651256 Physician Cardiology 02/11/19 Kj Rowe MD [address] [place], [place] 209361 Physician Pulmonary and Critical Care Medicine 04/29/19 Ronit Rahman DO [address] [place], [place] 96231256 Primary Staff Physician Cardiology 01/12/20 Andrez Pitts DO [address] [id number] Gastroenterology 11/21/23 Fly Tier Relationship Specialty Start Date End Date Julio Arriaga, BOAT HOP.REGULATORY LEADER [address] [place] [phone] PCP - General Internal Medicine 10/18/22 Ismael Kidd (Rn)(Hist), RN Specialty Portable Sawyer Hematology/Oncology 08/30/17 Quin Nolan, DO [address] [facility] [place] 000441 Hospice Physician Peripheral Vascular 01/26/19 Jennifer Arias MD [address] [address] Physician Internal Medicine 02/11/19 Ronit Rahman DO [address] [place], [place] 30453256 Physician Cardiology 02/11/19 Kj Rowe MD [address] [facility] [place], [place] 271851 Physician Pulmonary and Critical Care Medicine 04/29/19 Ronit Rahman DO [address] [place], [place] 03503256 Primary Staff Physician Cardiology 01/12/20 Andrez Pitts, DO 1761 [facility] [address] [address] Gastroenterology 11/21/23 Fly Tier Relationship Specialty Start Date End Date Julio Arriaga, BOAT HOP.REGULATORY LEADER [address] [place] [address] PCP - General Internal Medicine 10/18/22 Ismael Kidd (Rn)(Hist), RN Specialty Portable Sawyer Hematology/Oncology 08/30/17 Quin Nolan, DO [address] [place], [place] 778341 Hospice Physician Peripheral Vascular 01/26/19 Jennifer Arias MD 4125 [facility] [address] [place], [place] 122433 Physician Internal Medicine 02/11/19 Ronit Rahman DO [address] [place] [address] Physician Cardiology 02/11/19 Kj Rowe MD [address] [place], [place] 538861 Physician Pulmonary and Critical Care Medicine 04/29/19 Ronit Rahman DO [address] [place] [address] Primary Staff Physician Cardiology 01/12/20 Andrez Pitts DO 1761 [facility] [address] [place], [place] 258691 Gastroenterology 11/21/23 Fly Tier Relationship Specialty Start Date End Date Julio Arriaga, BOAT HOP.REGULATORY LEADER [address] [place] [phone] PCP - General Internal Medicine 10/18/22 Ismael Kidd (Rn)(Hist), RN Specialty Portable Sawyer Hematology/Oncology 08/30/17 Quin Nolan DO [address] [place], [place] 24555691 Hospice Physician Peripheral Vascular 01/26/19 Jennifer Arias MD 4125 [facility] [address] [place], [place] 799963 Physician Internal Medicine 02/11/19 Ronit Rahman DO [address] [place] [address] Physician Cardiology 02/11/19 Kj Rowe MD [address] [place] [address] Physician Pulmonary and Critical Care Medicine 04/29/19 Ronit Rahman DO [address] [place] [address] Primary Staff Physician Cardiology 01/12/20 Andrez Pitts DO [address] 217021 Gastroenterology 11/21/23 Fly Tier Relationship Specialty Start Date End Date Julio Arriaga, BOAT HOP.REGULATORY LEADER [address] [place] [phone] PCP - General Internal Medicine 10/18/22 Ismael Kidd (Rn)(Hist), RN Specialty Portable Sawyer Hematology/Oncology 08/30/17 Quin Nolan DO [address] [place] [address] Hospice Physician Peripheral Vascular 01/26/19 Jennifer Arias MD [address] [address] Physician Internal Medicine 02/11/19 Ronit Rahman DO [address] [place] [address] Physician Cardiology 02/11/19 09/15/24 Kj Rowe MD [address] [place] [address] Physician Pulmonary and Critical Care Medicine 04/29/19 09/15/24 Ronit Rahman DO [address] [place] [address] Primary Staff Physician Cardiology 01/12/20 09/15/24 Andrez Pitts DO [address] [address] Gastroenterology 11/21/23 Kenya Garcia MD [address] [place] [address] General Surgery 09/15/24 Sidney Joya MD [address] [place] [address] Radiation Oncology 09/16/24 [place] [address] [place] [address] 262784 Cardiology 09/16/24 Sarah Pearson PA-C [address] [place], [place] 752210 Rheumatology 09/16/24 Fly Tier Relationship Specialty Start Date End Date Julio Arriaga, BOAT HOP.REGULATORY LEADER [address] [place] [phone] PCP - General Internal Medicine 10/18/22 Ismael Kidd (Rn)(Hist), RN Specialty Portable Sawyer Hematology/Oncology 08/30/17 Quin Nolan DO [address] [place] [address] Hospice Physician Peripheral Vascular 01/26/19 Jennifer Arias MD [address] [place] [address] Physician Internal Medicine 02/11/19 Ronit Rahman DO [address] [place] [address] Physician Cardiology 02/11/19 09/15/24 Kj Rowe MD [address] [place], [place] 419721 Physician Pulmonary and Critical Care Medicine 04/29/19 09/15/24 Ronit Rahman DO [address] [place] [address] Primary Staff Physician Cardiology 01/12/20 09/15/24 Andrez Pitts DO [address] 561671 Gastroenterology 11/21/23 Kenya Garcia MD 1761 [facility] [place] [address] General Surgery 09/15/24 Fly Tier Relationship Specialty Start Date End Date Julio Arriaga, BOAT HOP.REGULATORY LEADER [address] [place] [phone] PCP - General Internal Medicine 10/18/22 Ismael Kidd (Rn)(Hist), RN Specialty Portable Sawyer Hematology/Oncology 08/30/17 Quin Nolan DO [address] [place], [place] 871791 Hospice Physician Peripheral Vascular 01/26/19 Jennifer Arias MD [address] [facility] 209 [place], [place] 403833 Physician Internal Medicine 02/11/19 Andrez Pitts DO [address] [facility] [address] [place], [place] 438841 Gastroenterology 11/21/23 Kenya Garcia MD [address] [place] [address] General Surgery 09/15/24 Sidney Joya MD [address] [place] [address] Radiation Oncology 09/16/24 Fredi Jones MD 1261 [facility] 110 [place], [place] 585154 Cardiology 09/16/24 Sarah Pearson, PAMadayC [address] [place], [place] 520570 Rheumatology 09/16/24 Fly Tier Relationship Specialty Start Date End Date Julio Arriaga, BOAT HOP.REGULATORY LEADER [address] [place] [phone] PCP - General Internal Medicine 10/18/22 Ismael Kidd (Rn)(Hist), RN Specialty Portable Sawyer Hematology/Oncology 08/30/17 Quin Nolan DO [address] [place] [address] Hospice Physician Peripheral Vascular 01/26/19 Jennifer Arias MD 4125 [facility] 209 [place], [place] 472983 Physician Internal Medicine 02/11/19 Andrez Pitts DO [address] [facility] [address] [place], [place] 649931 Gastroenterology 11/21/23 Kenya Garcia MD [address] [place] [address] General Surgery 09/15/24 Sidney Joya MD [address] [place], [place] [id number] Radiation Oncology 09/16/24 Fredi Jones MD 1261 [facility] 110 [place], [place] [id number] Cardiology 09/16/24 Sarah Pearson PA-C [address] [place], [place] [id number] Rheumatology 09/16/24 Fly Tier Relationship Specialty Start Date End Date Julio Arriaga, BOAT HOP.REGULATORY LEADER [address] [place] [phone] PCP - General Internal Medicine 10/18/22 Ismael Kidd (Rn)(Hist), RN Specialty Portable Sawyer Hematology/Oncology 08/30/17 Quin Nolan DO [address] [place], [place] 25043691 Hospice Physician Peripheral Vascular 01/26/19 Jennifer Arias MD 4125 [facility] 209 [place], [place] 653773 Physician Internal Medicine 02/11/19 Andrez Pitts DO [address] [facility] [address] [place], [place] 471201 Gastroenterology 11/21/23 Kenya Garcia MD [address] [place] [address] General Surgery 09/15/24 Sidney Joya MD [address] [place], [place] 089291 Radiation Oncology 09/16/24 Fredi Jones MD 1261 [facility] 110 [place], [place] 865984 Cardiology 09/16/24 Sarah Pearson PA-C [address] [place], [place] 185210 Rheumatology 09/16/24 Raul Hendrix LISW [address] [place] [address] In Home Aide Hematology/Oncology 09/18/24 Fly Tier Relationship Specialty Start Date End Date Julio Arriaga, BOAT HOP.REGULATORY LEADER [address] [place] [phone] PCP - General Internal Medicine 10/18/22 Ismael Kidd (Rn)(Hist), RN Specialty Portable Sawyer Hematology/Oncology 08/30/17 Quin Nolan DO [address] [place], [place] 987951 Hospice Physician Peripheral Vascular 01/26/19 Jennifer Arias MD 4125 [facility] 209 [place], [place] 166533 Physician Internal Medicine 02/11/19 Andrez Pitts DO [address] [facility] [address] [place], [place] 318261 Gastroenterology 11/21/23 Kenya Garcia MD [address] [place] [address] General Surgery 09/15/24 Sidney Joya MD [address] [place], [place] 080241 Radiation Oncology 09/16/24 Fredi Jones MD 1261 [facility] [address] [place], [place] [id number] Cardiology 09/16/24 Sarah Pearson PA-C [address] [place], [place] [id number] Rheumatology 09/16/24 Raul Hendrix LISW [address] [place] [address] In Home Aide Hematology/Oncology 09/18/24 Fly Tier Relationship Specialty Start Date End Date Julio Arriaga, BOAT HOP.REGULATORY LEADER [address] [place] [phone] PCP - General Internal Medicine 10/18/22 Ismael Kidd (Rn)(Hist), RN Specialty Portable Sawyer Hematology/Oncology 08/30/17 Quin Nolan DO [address] [place], [place] 152681 Hospice Physician Peripheral Vascular 01/26/19 Jennifer Arias MD [address] [facility] 209 [place], [place] 211543 Physician Internal Medicine 02/11/19 Andrez Pitts DO [address] [facility] [address] [place], [place] 482221 Gastroenterology 11/21/23 Kenya Garcia MD [address] [place], [place] 547301 General Surgery 09/15/24 Sidney Joya MD [address] [place], [place] 65070691 Radiation Oncology 09/16/24 Fredi Jones MD 1261 [facility] [address] [place], [place] [id number] Cardiology 09/16/24 Sarah Pearson PA-C [address] [place], [place] 138210 Rheumatology 09/16/24 Fly Tier Relationship Specialty Start Date End Date Julio Arriaga, BOAT HOP.REGULATORY LEADER [address] [place] [phone] PCP - General Internal Medicine 10/18/22 Ismael Kidd (Rn)(Hist), RN Specialty Portable Sawyer Hematology/Oncology 08/30/17 Quin Nolan DO [address] [place], [place] 10284691 Hospice Physician Peripheral Vascular 01/26/19 Jennifer Arias MD [address] [facility] 209 [place], [place] 637413 Physician Internal Medicine 02/11/19 Andrez Pitts DO [address] [facility] [address] [place], [place] 900471 Gastroenterology 11/21/23 Kenya Garcia MD [address] [place] [address] General Surgery 09/15/24 Sidney Joya MD [address] [place] [place], [place] 945911 Radiation Oncology 09/16/24 Fredi Jones MD 1261 [facility] 110 [place], [place] 264294 Cardiology 09/16/24 Sarah Pearson, LIZZIE [address] [place], [place] 172310 Rheumatology 09/16/24 Raul Hendrix LISW [address] [place] [address] In Home Aide Hematology/Oncology 09/18/24 Fly Tier Relationship Specialty Start Date End Date Julio Arriaga, BOAT HOP.REGULATORY LEADER [address] [place] [phone] PCP - General Internal Medicine 10/18/22 Ismael Kidd (Rn)(Hist), RN Specialty Portable Sawyer Hematology/Oncology 08/30/17 Quin Nolan DO [address] [place], [place] 663921 Hospice Physician Peripheral Vascular 01/26/19 Jennifer Arias MD [address] [facility] 209 [place], [place] 828893 Physician Internal Medicine 02/11/19 Andrez Pitts DO [address] [facility] [address] [place], [place] 151271 Gastroenterology 11/21/23 Kenya Garcia MD [address] [place] [address] General Surgery 09/15/24 Sidney Joya MD [address] [place] [address] Radiation Oncology 09/16/24 Fredi Jones MD 1261 [facility] 110 [place] [address] Cardiology 09/16/24 Sarah Pearson PA-C [address] [place] [address] Rheumatology 09/16/24 Raul Hendrix LISW 721 [place] [address] In Home Aide Hematology/Oncology 09/18/24 Josh Bennett DO [address] [place], [place] 508121 Hematology/Oncology 09/25/24 Roxanne Bland RN Specialty Portable Sawyer Oncology 09/25/24 Fly Tier Relationship Specialty Start Date End Date Julio Arriaga, BOAT HOP.REGULATORY LEADER [address] [place] [phone] PCP - General Internal Medicine 10/18/22 Ismael Kidd (Rn)(Hist), RN Specialty Portable Sawyer Hematology/Oncology 08/30/17 Quin Nolan DO [address] [place] [address]44231 Hospice Physician Peripheral Vascular 01/26/19 Jennifer Arias MD [address] [facility] 209 [place] [address] Physician Internal Medicine 02/11/19 Andrez Pitts DO [address] [facility] [address] [place] [address] [address]401 Gastroenterology 11/21/23 Kenya Garcia MD [address] [place] [address] General Surgery 09/15/24 Sidney Joya MD [address] [place], [place] 996201 Radiation Oncology 09/16/24 Fredi Jones MD 1261 [facility] 110 [place], [place] 40652654 Cardiology 09/16/24 Sarah Pearson PA-C [address] [place], [place] 254470 Rheumatology 09/16/24 Raul Hendrix LISW [address] [place] [address] In Home Aide Hematology/Oncology 09/18/24 Josh Bennett DO [address] [place] [place], [place] 05447691 Hematology/Oncology 09/25/24 Roxanne Bland RN Specialty Portable Sawyer Oncology 09/25/24 Fly Tier Relationship Specialty Start Date End Date Julio Arriaga, BOAT HOP.REGULATORY LEADER [address] [place] [phone] PCP - General Internal Medicine 10/18/22 Ismael Kidd (Rn)(Hist), RN Specialty Portable Sawyer Hematology/Oncology 08/30/17 Quin Nolan DO [address] [place] [address] Hospice Physician Peripheral Vascular 01/26/19 Jennifer Arias MD [address] [facility] 209 [place], [place] 778643 Physician Internal Medicine 02/11/19 Andrez Pitts DO 1761 [facility] [address] [place], [place] 855281 Gastroenterology 11/21/23 Kenya Garcia MD [address] [place] [address] General Surgery 09/15/24 Sidney Joya MD [address] [place] [address] Radiation Oncology 09/16/24 Fredi oJnes MD 1261 [facility] 110 [place], [place] 645594 Cardiology 09/16/24 Sarah Pearson PA-C [address] [place] [address] [place], [place] 97554[address] Rheumatology 09/16/24 Raul Hendrix LISW [address] [place] [address] In Home Aide Hematology/Oncology 09/18/24 Josh Bennett DO [address] [place] [address] Hematology/Oncology 09/25/24 Roxanne Bland, RN Specialty Portable Sawyer Oncology 09/25/24 Fly Tier Relationship Specialty Start Date End Date Julio Arriaga, BOAT HOP.REGULATORY LEADER [address] [place] [phone] PCP - General Internal Medicine 10/18/22 Ismael Kidd (Rn)(Hist), RN Specialty Portable Sawyer Hematology/Oncology 08/30/17 Quin Nolan DO [address] [place], [place] 798271 Hospice Physician Peripheral Vascular 01/26/19 Jennifer Arias MD 4125 [facility] 209 [place], [place] 768713 Physician Internal Medicine 02/11/19 Andrez Pitts DO [address] [facility] [address]B [place] [address] Gastroenterology 11/21/23 Kenya Garcia MD [address] [place] [address] General Surgery 09/15/24 Sidney Joya MD [address] [place] [address] Radiation Oncology 09/16/24 Fredi Jones MD 1261 [facility] 110 [place] [address] Cardiology 09/16/24 Sarah Pearson PA-C [address] [place] [address] [place], [place] 303600 Rheumatology 09/16/24 Raul Hendrix LISW [address] [place] [address] In Home Aide Hematology/Oncology 09/18/24 Josh Bennett DO [address] [place] [address] Hematology/Oncology 09/25/24 Roxanne Bland RN Specialty Portable Sawyer Oncology 09/25/24 Fly Tier Relationship Specialty Start Date End Date Julio Arriaga, BOAT HOP.REGULATORY LEADER [address]61 [place] [phone] PCP - General Internal Medicine 10/18/22 Ismael Kidd (Rn)(Hist), RN Specialty Portable Sawyer Hematology/Oncology 08/30/17 Quin Nolan DO [address] [place], [place] 170901 Hospice Physician Peripheral Vascular 01/26/19 Jennifer Arias MD [address] [place] [address] Physician Internal Medicine 02/11/19 Andrez Pitts DO [address] 390691 Gastroenterology 11/21/23 Kenya Garcia MD [address] [place] [address] General Surgery 09/15/24 Sidney Joya MD [address] [place] [address] Radiation Oncology 09/16/24 Fredi Jones MD 1261 [facility] 110 [place] [address] Cardiology 09/16/24 Sarah Pearson PA-C [address] [place] [address] Rheumatology 09/16/24 Raul Hendrix LISW 721 [place] [address] In Home Aide Hematology/Oncology 09/18/24 Josh Bennett DO 7[address] [place] [address] Hematology/Oncology 09/25/24 Roxanne Bland RN Specialty Portable Sawyer Oncology 09/25/24 Fly Tier Relationship Specialty Start Date End Date Julio Arriaga, BOAT HOP.REGULATORY LEADER [address] [place] [phone] PCP - General Internal Medicine 10/18/22 Ismael Kidd (Rn)(Hist), RN Specialty Portable Sawyer Hematology/Oncology 08/30/17 Quin Nolan DO [address] [place], [place] 880331 Hospice Physician Peripheral Vascular 01/26/19 Jennifer Arias MD [address] [facility] 209 [place] [address] Physician Internal Medicine 02/11/19 Andrez Pitts DO [address] [facility] [address] [place], [place] 084391 Gastroenterology 11/21/23 Kenya Garcia MD [address] [place], [place] 514031 General Surgery 09/15/24 Sidney Joya MD [address] [facility], [place] 602111 Radiation Oncology 09/16/24 Fredi Jones MD 1261 [facility] 110 [place], [place] 622224 Cardiology 09/16/24 Sarah Pearson PA-C [address] [place], [place] [id number] Rheumatology 09/16/24 Raul Hendrix LISW [address] [place] [address] In Home Aide Hematology/Oncology 09/18/24 Josh Bennett DO [address] [place] [address] Hematology/Oncology 09/25/24 Roxanne Bland, LÓPEZ Specialty Portable Sawyer Oncology 09/25/24 Fly Tier Relationship Specialty Start Date End Date Julio Arriaga, BOAT HOP.REGULATORY LEADER [address] [place] [phone] PCP - General Internal Medicine 10/18/22 Ismael Kidd (Rn)(Hist), RN Specialty Portable Sawyer Hematology/Oncology 08/30/17 Quin Nolan DO [address] [place], [place] 30894691 Hospice Physician Peripheral Vascular 01/26/19 Jennifer Arias MD [address] [facility] 209 [place], [place] 488153 Physician Internal Medicine 02/11/19 Andrez Pitts DO [address] [facility] [address] [place] [address] Gastroenterology 11/21/23 Kenya Garcia MD [address] [place] [address] General Surgery 09/15/24 Sidney Joya MD [address] [place] [address] Radiation Oncology 09/16/24 Fredi Jones MD 1261 [facility] 110 [place] [address] Cardiology 09/16/24 Sarah Pearson PA-C [address] [place] [address] Rheumatology 09/16/24 Raul Hendrix LISW 721 [place] [address] In Home Aide Hematology/Oncology 09/18/24 Josh Bennett DO [address] [place] [address] Hematology/Oncology 09/25/24 Roxanne Bland RN Specialty Portable Sawyer Oncology 09/25/24 Fly Tier Relationship Specialty Start Date End Date Julio Arriaga, BOAT HOP.REGULATORY LEADER [address] [place] [phone] PCP - General Internal Medicine 10/18/22 Ismael Kidd (Rn)(Hist), RN Specialty Portable Sawyer Hematology/Oncology 08/30/17 Quin Nolan DO [address] [place], [place] 39113691 Hospice Physician Peripheral Vascular 01/26/19 Jennifer Arias MD [address] [facility] 209 [place], [place] 532363 Physician Internal Medicine 02/11/19 Andrez Pitts DO 1761 [facility] [address] [place], [place] 966431 Gastroenterology 11/21/23 Kenya Garcia MD 1761 [facility] [place] [address] General Surgery 09/15/24 Sidney Joya MD [address] E [facility] [place], [place] 507231 Radiation Oncology 09/16/24 Fredi Jones MD 1261 [facility] 110 [place], [place] 414884 Cardiology 09/16/24 Sarah Pearson PA-C [address] [place], [place] 158060 Rheumatology 09/16/24 Raul Hendrix LISW [address] [place] [address] In Home Aide Hematology/Oncology 09/18/24 Josh Bennett DO [address] [place], [place] 827141 Hematology/Oncology 09/25/24 Roxanne Bland, LÓPEZ Specialty Portable Sawyer Oncology 09/25/24 Fly Tier Relationship Specialty Start Date End Date Julio Arriaga, BOAT HOP.REGULATORY LEADER [address] [place] [phone] PCP - General Internal Medicine 10/18/22 Ismael Kidd (Rn)(Hist), RN Specialty Portable Sawyer Hematology/Oncology 08/30/17 Quin Nolan DO [address] [place] [address] Hospice Physician Peripheral Vascular 01/26/19 Jennifer Arias MD [address] [facility] 209 [place], [place] 435903 Physician Internal Medicine 02/11/19 Andrez Pitts DO [address] [facility] [address] [place], [place] 937021 Gastroenterology 11/21/23 Kenya Garcia MD [address] [place] [address] General Surgery 09/15/24 Sidney Joya MD [address] [place] [address] Radiation Oncology 09/16/24 Fredi Jones MD 1261 [facility] 110 [place], [place] 054354 Cardiology 09/16/24 Sarah Pearson, PARowan [address] [place], [place] 589320 Rheumatology 09/16/24 Raul Hendrix LISW [address] [place] [address] In Home Aide Hematology/Oncology 09/18/24 Josh Bennett DO [address] [place] [address] Hematology/Oncology 09/25/24 Roxanne Bland, LÓPEZ Specialty Portable Sawyer Oncology 09/25/24 Fly Tier Relationship Specialty Start Date End Date Julio Arriaga, BOAT HOP.REGULATORY LEADER [address] [place] [address] PCP - General Internal Medicine 10/18/22 Ismael Kidd (Rn)(Hist), RN Specialty Portable Sawyer Hematology/Oncology 08/30/17 Quin Nolan DO [address] [place], [place] 273251 Hospice Physician Peripheral Vascular 01/26/19 Jennifer Arias MD [address] [facility] [address] [place], [place] 191113 Physician Internal Medicine 02/11/19 Andrez Pitts DO [address] [facility] [address]B [place] [address] Gastroenterology 11/21/23 Kenya Garcia MD [address] [place] [address] General Surgery 09/15/24 Sidney Joya MD [address] [place] [address] Radiation Oncology 09/16/24 Fredi Jones MD [address] JUAN A [address] [place], [place] 901824 Cardiology 09/16/24 Sarah Pearson PA-C [address] [place], [place] 117860 Rheumatology 09/16/24 Raul Hendrix LISW [address] [place] [address] In Home Aide Hematology/Oncology 09/18/24 Josh Bennett DO [address] [place] [address] Hematology/Oncology 09/25/24 Roxanne Bland RN Specialty Portable Sawyer Oncology 09/25/24 Fly Tier Relationship Specialty Start Date End Date Julio Arriaga, BOAT HOP.REGULATORY LEADER [address] [place] [phone] PCP - General Internal Medicine 10/18/22 Ismael Kidd (Rn)(Hist), RN Specialty Portable Sawyer Hematology/Oncology 08/30/17 Quin Nolan DO [address] [place] [address] Hospice Physician Peripheral Vascular 01/26/19 Jennifer Arias MD [address] JUAN A [address] [place], [place] 560133 Physician Internal Medicine 02/11/19 Andrez Pitts DO [address] [facility] [address] [place] [address] Gastroenterology 11/21/23 Kenya Garcia MD [address] [place] [address] General Surgery 09/15/24 Sidney Joya MD [address] [place] [address] Radiation Oncology 09/16/24 Fredi Jones MD [address] JUAN A [address] [place] [address] Cardiology 09/16/24 Sarah Pearson PA-C [address] [place], [place] 922960 Rheumatology 09/16/24 Raul Hendrix LISW [address] [address] In Home Aide Hematology/Oncology 09/18/24 Josh Bennett DO [address] [place], [place] 006751 Hematology/Oncology 09/25/24 Roxanne Bland RN Specialty Portable Sawyer Oncology 09/25/24 Fly Tier Relationship Specialty Start Date End Date Julio Arriaga, BOAT HOP.REGULATORY LEADER 1261 [place] [phone] PCP - General Internal Medicine 10/18/22 Ismael Kidd (Rn)(Hist), RN Specialty Portable Sawyer Hematology/Oncology 08/30/17 Quin Nolan DO [address] [place] [address] Hospice Physician Peripheral Vascular 01/26/19 Jennifer Arias MD [address] [address]47363 Physician Internal Medicine 02/11/19 Andrez Pitts DO [address] [place], [place] 43801691 Gastroenterology 11/21/23 Kenya Garcia MD [address] [place] [address] General Surgery 09/15/24 Sidney Joya MD [address] [place], [place] 478331 Radiation Oncology 09/16/24 Fredi Jones MD [address] [facility] 110 [place] [address] Cardiology 09/16/24 Sarah Pearson PA-C [address] [place], [place] 897580 Rheumatology 09/16/24 Raul Hendrix LISW [address] [place] [address] In Home Aide Hematology/Oncology 09/18/24 Josh Bennett DO [address] [place], [place] 857761 Hematology/Oncology 09/25/24 Roxanne Bland RN Specialty Portable Sawyer Oncology 09/25/24 Fly Tier Relationship Specialty Start Date End Date Julio Arriaga, BOAT HOP.REGULATORY LEADER [address] [place] [phone] PCP - General Internal Medicine 10/18/22 Ismael Kidd (Rn)(Hist), RN Specialty Portable Sawyer Hematology/Oncology 08/30/17 Quin Nolan DO [address] [place], [place] 134921 Hospice Physician Peripheral Vascular 01/26/19 Jennifer Arias MD [address] [facility] 209 [place], [place] 806903 Physician Internal Medicine 02/11/19 Andrez Pitts DO [address] [facility] [address] [place] [address] Gastroenterology 11/21/23 Kenya Garcia MD [address] [place] [address] General Surgery 09/15/24 Sidney Joya MD [address] [place] [address] Radiation Oncology 09/16/24 Fredi Jones MD 1261 [facility] 110 [place], [place] 994184 Cardiology 09/16/24 Sarah Pearson PA-C [address] [place], [place] 156350 Rheumatology 09/16/24 Raul Hendrix LISW 721 [place] [address] In Home Aide Hematology/Oncology 09/18/24 Josh Bennett DO 7[address] [place] [address] Hematology/Oncology 09/25/24 Roxanne Bland RN Specialty Portable Sawyer Oncology 09/25/24 Fly Tier Relationship Specialty Start Date End Date Julio Arriaga, BOAT HOP.REGULATORY LEADER [address] [place] [address] PCP - General Internal Medicine 10/18/22 Ismael Kidd (Rn)(Hist), RN Specialty Portable Sawyer Hematology/Oncology 08/30/17 Quin Nolan DO [address] [place], [place] 405611 Hospice Physician Peripheral Vascular 01/26/19 Jennifer Arias MD [address] [facility] 209 [place], [place] 507833 Physician Internal Medicine 02/11/19 Andrez Pitts DO [address] [facility] [address] [place] [address], [place] 537611 Gastroenterology 11/21/23 Kenya Garcia MD [address] [place] [address] General Surgery 09/15/24 Sidney Joya MD [address]21 E [facility] [place] [address] Radiation Oncology 09/16/24 Fredi Jones MD 1261 [facility] 110 [place], [place] 997934 Cardiology 09/16/24 Sarah Pearson, PAMadayC [address] [place], [place] 632750 Rheumatology 09/16/24 Raul Hendrix LISW [address] [place] [address] In Home Aide Hematology/Oncology 09/18/24 Josh Bennett DO [address] [facility] [address] Hematology/Oncology 09/25/24 Roxanne Bland, ÓLPEZ Specialty Portable Sawyer Oncology 09/25/24 Fly Tier Relationship Specialty Start Date End Date Julio Arriaga, BOAT HOP.REGULATORY LEADER [address] [place] [address] PCP - General Internal Medicine 10/18/22 Ismael Kidd (Rn)(Hist), RN Specialty Portable Sawyer Hematology/Oncology 08/30/17 Quin Nolan DO [address] [place], [place] [address] Hospice Physician Peripheral Vascular 01/26/19 Jennifer Arias MD 4125 [facility] 209 [place], [place] [address] Physician Internal Medicine 02/11/19 Andrez Pitts DO [address]61 [facility] [address] [place] [address], [place] [address] Gastroenterology 11/21/23 Kenya Garcia MD [address] [place] [address] General Surgery 09/15/24 Sidney Joya MD [address] [place] [address], [place] [address] Radiation Oncology 09/16/24 Fredi Jones MD 1261 [facility] [address] [place], [place] [address] Cardiology 09/16/24 Sarah Pearson PA-C [address] [place], [place] [address]130 Rheumatology 09/16/24 Raul Hendrix LISW [address] [place] [address] In Home Aide Hematology/Oncology 09/18/24 Josh Bennett DO [address] [place] [address] Hematology/Oncology 09/25/24 Doup, Roxanne, RN Specialty Portable Sawyer Oncology 09/25/24 Fly Tier Relationship Specialty Start Date End Date Julio Arriaga, BOAT HOP.REGULATORY LEADER [address] [place] [phone] PCP - General Internal Medicine 10/18/22 Ismael Kidd (Rn)(Hist), RN Specialty Portable Sawyer Hematology/Oncology 08/30/17 Quin oNlan DO [address] [facility] [place], [place] [address] Hospice Physician Peripheral Vascular 01/26/19 Jennifer Arias MD 4125 [facility] 209 [place], [place] [address] Physician Internal Medicine 02/11/19 Andrez Pitts DO 1761 [facility] [address] [place] [address] Gastroenterology 11/21/23 Kenya Garcia MD [address] [place], [place] [address]351 General Surgery 09/15/24 Sidney Joya MD [address] [place], [place] 113[address] Radiation Oncology 09/16/24 Fredi Jones MD 1261 [facility] [address] [place], [place] [address] Cardiology 09/16/24 Sarah Pearson PA-C [address] [place] [address], [place] [address] Rheumatology 09/16/24 Raul Hendrix LISW [address] [place] [address] In Home Aide Hematology/Oncology 09/18/24 Josh Bennett DO [address] [address] Hematology/Oncology 09/25/24 Roxanne Bland, LÓPEZ Specialty Portable Sawyer Oncology 09/25/24 Fly Tier Relationship Specialty Start Date End Date Julio Arriaga, BOAT HOP.REGULATORY LEADER [address] [place] [address] PCP - General Internal Medicine 10/18/22 Ismael Kidd (Rn)(Hist), RN Specialty Portable Sawyer Hematology/Oncology 08/30/17 Quin Nolan DO [address] [place], [place] [address] Hospice Physician Peripheral Vascular 01/26/19 Jennifer Arias MD [address] [place] [facility] 209 [place] [address] Physician Internal Medicine 02/11/19 Andrez Pitts DO [address] [facility] [address] [place] [address] Gastroenterology 11/21/23 Kenya Garcia MD [address] [place] [address] General Surgery 09/15/24 Sidney Joya MD [address] [place], [place] [address] Radiation Oncology 09/16/24 Fredi Jones MD 1261 [facility] [address] [place] [address] Cardiology 09/16/24 Sarah Pearson PA-C [address] [place], [place] [address] Rheumatology 09/16/24 Raul Hendrix LISW [address] [place] [address] In Home Aide Hematology/Oncology 09/18/24 Josh Bennett DO [address] [place] [address] Hematology/Oncology 09/25/24 Roxanne Bland, LÓPEZ Specialty Portable Sawyer Oncology 09/25/24 Fly Tier Relationship Specialty Start Date End Date Julio Arriaga, BOAT HOP.REGULATORY LEADER [address] [place] [phone] PCP - General Internal Medicine 10/18/22 Ismael Kidd (Rn)(Hist), RN Specialty Portable Sawyer Hematology/Oncology 08/30/17 Quin Nolan DO [address] [place] [address] Hospice Physician Peripheral Vascular 01/26/19 Jennifer Arias MD [address] [facility] 209 [place], [place] [address]223 Physician Internal Medicine 02/11/19 Andrez Pitts DO [address] [place], [place] 52[address] Gastroenterology 11/21/23 Kenya Garcia MD [address] [place] [address] General Surgery 09/15/24 Sidney Joya MD [address] [place] [address] Radiation Oncology 09/16/24 Fredi Jones MD 1261 [facility] [address] [place] [address] Cardiology 09/16/24 Sarah Pearson PA-C [address] [place] [place], [place] [address] Rheumatology 09/16/24 Raul Hendrix LISW 721 [place] [address] In Home Aide Hematology/Oncology 09/18/24 Josh Bennett DO [address] [facility] [place] [address] Hematology/Oncology 09/25/24 Roxanne Bland RN Specialty Portable Sawyer Oncology 09/25/24 Fly Tier Relationship Specialty Start Date End Date Julio Arriaga, BOAT HOP.REGULATORY LEADER [address] [place] [phone] PCP - General Internal Medicine 10/18/22 Ismael Kidd (Rn)(Hist), RN Specialty Portable Sawyer Hematology/Oncology 08/30/17 Quin Nolan DO [address] [place] [place], [place] [address] Hospice Physician Peripheral Vascular 01/26/19 Jennifer Arias MD [address] [facility] 209 [place], [place] [address] Physician Internal Medicine 02/11/19 Andrez Pitts DO [address] [facility] [address] [place], [place] [address] Gastroenterology 11/21/23 Kenya Garcia MD [address] [place] [address] General Surgery 09/15/24 Sidney Joya MD [address] [address] Radiation Oncology 09/16/24 Fredi Jones MD 1261 [facility] 110 [place] [address] Cardiology 09/16/24 Sarah Pearson PA-C [address] [place], [place] [address] Rheumatology 09/16/24 Ralu Hendrix LISW [address] [place] [address] In Home Aide Hematology/Oncology 09/18/24 Josh Bennett DO 721 [place] [address] Hematology/Oncology 09/25/24 Roxanne Bland RN Specialty Portable Sawyer Oncology 09/25/24 Fly Tier Relationship Specialty Start Date End Date Julio Arriaga, BOAT HOP.REGULATORY LEADER [address] [place] [phone] PCP - General Internal Medicine 10/18/22 Ismael Kidd (Rn)(Hist), RN Specialty Portable Sawyer Hematology/Oncology 08/30/17 Quin Nolan DO [address] [place] [place], [place] 77[address] Hospice Physician Peripheral Vascular 01/26/19 Jennifer Arias MD [address]125 [address] 209 [place], [place] [address] Physician Internal Medicine 02/11/19 Andrez Pitts DO [address] [facility] [address] [place], [place] [address] Gastroenterology 11/21/23 Kenya Garcia MD [address] [place] [address] General Surgery 09/15/24 Sidney Joya MD [address] [facility] [address] [place] [address] [address] Radiation Oncology 09/16/24 Fredi Jones MD [address] [facility] 110 [place], [place] [address] Cardiology 09/16/24 Sarah Pearson PA-C [address] [place], [place] [id number] Rheumatology 09/16/24 Raul Hendrix LISW [address] [place] [address] In Home Aide Hematology/Oncology 09/18/24 Josh Bennett DO [address] [place] [address], [place] [address] Hematology/Oncology 09/25/24 Roxanne Bland, LÓPEZ Specialty Portable Sawyer Oncology 09/25/24 Team Status: Active Member Role Status Dates Julio Arriaga NP, AUTOMOTIVE SALES MANAGER-C Primary Care Provider Active Team Status: Inactive Member Role Status Dates Julio Arriaga NP, AUTOMOTIVE SALES MANAGER-C Primary Care Provider Active Start: August 27, 2024 End: August 27, 2024 Julio Arriaga NP, AUTOMOTIVE SALES MANAGER-C Referring Provider Active Start: August 27, 2024 End: August 27, 2024 Dr. Andrez Pitts DO Attending Provider Active Start: August 27, 2024 End: August 27, 2024 Team Status: Inactive Member Role Status Dates Julio Arriaga NP, AUTOMOTIVE SALES MANAGER-C Primary Care Provider Active Start: September 02, [...] Member Role Status Dates Julio Arriaga NP, AUTOMOTIVE SALES MANAGER-C Primary Care Provider Active Start: September 02, 2024 Dr. Sonia Germain DO Emergency Provider Active Start: September 02, 2024 Dr. Kenya Garcia MD Attending Provider Active Start: September 02, 2024 Dr. Kenya Garcia MD Other Provider Active St art: September 02, 2024 Team Status: Active Member Role Status Dates Julio Arriaga NP, AUTOMOTIVE SALES MANAGER-C Primary Care Provider Active Start: September 03, [...] Member Role Status Dates Julio Arriaga NP, AUTOMOTIVE SALES MANAGER-C Primary Care Provider Active Start: September 15, 2024 End: September 15, 2024 Julio Arriaga NP, AUTOMOTIVE SALES MANAGER-C Referring Provider Active Start: September 15, 2024 End: September 15, 2024 Dr. Kenya Garcia MD Attending Provider Active Start: September 15, 2024 End: September 15, 2024 Team Status: Inactive Member Role Status Dates Julio Arriaga NP, AUTOMOTIVE SALES MANAGER-C Primary Care Provider Active Start: September 24, [...] Team Status: Inactive Member Role Status Dates Juilo Arriaga AUTOMOTIVE SALES MANAGER, AUTOMOTIVE SALES MANAGER-C Primary Care Provider Active Start: October 02, 2024 End: October 02, 2024 Dr. Josh Bennett DO Attending Provider Active St art: October 02, 2024 End: October 02, 2024 Dr. Josh Bennett DO Referring Provider Active St art: October 02, 2024 End: October 02, 2024 Team Status: Active Member Role Status Dates Julio Arriaga AUTOMOTIVE SALES MANAGER, AUTOMOTIVE SALES MANAGER-C Primary Care Provider Active Start: October 19, 2024 Dr. Josh Bennett DO Attending Provider Active St art: October 19, 2024 Dr. Josh Bennett DO Referring Provider Active St art: October 19, 2024 Team Status: Active Member Role Status Dates Julio Arriaga AUTOMOTIVE SALES MANAGER, AUTOMOTIVE SALES MANAGER-C Primary Care Provider Active Start: October 19, 2024 Dr. Lincoln Richards MD Attending Provider Active S tart: October 19, 2024 Team Status: Inactive Member Role Status Dates Julio Arriaga AUTOMOTIVE SALES MANAGER, AUTOMOTIVE SALES MANAGER-C Primary Care Provider Active Start: October 24, 2024 End: October 25, 2024 Dr. Rigoberto Dow DO Emergency Provider Active Start : October 24, 2024 End: October 25, 2024 Team Status: Inactive Member Role Status Dates Julio Arriaga AUTOMOTIVE SALES MANAGER, AUTOMOTIVE SALES MANAGER-C Primary Care Provider Active Start: October 19, 2024 End: October 19, 2024 Dr. Josh Bennett DO Attending Provider Active St art: October 19, 2024 End: October 19, 2024 Dr. Josh Bennett DO Referring Provider Active St art: October 19, 2024 End: October 19, 2024 Fly Tier Relationship Specialty Start Date End Date Julio Arriaga, BOAT HOP.REGULATORY LEADER [address] [place] [address] PCP - General Internal Medicine 10/18/22 Ismael Kidd (Rn)(Hist), RN Specialty Portable Sawyer Hematology/Oncology 08/30/17 Quin Nolan DO [address] [place] [address] Hospice Physician Peripheral Vascular 01/26/19 Jennifer Arias MD 4125 [facility] 209 [place] [address] Physician Internal Medicine 02/11/19 Andrez Pitts DO 1761 [facility] [address] [place] [address], [place] [address]321 Gastroenterology 11/21/23 Kenya Garcia MD [address] [place] [address] General Surgery 09/15/24 Sidney Joya MD [address] [place], [place] [address] Radiation Oncology 09/16/24 Fredi Jones MD 1261 [facility] [address] [place], [place] [id number] Cardiology 09/16/24 Sarah Pearson PA-C [address] [place] 339400 Rheumatology 09/16/24 Raul Hendrix LISW [address] [place] [address] In Home Aide Hematology/Oncology 09/18/24 Josh Bennett DO [address] [place], [place] [address] Hematology/Oncology 09/25/24 Roxanne Bland RN Specialty Portable Sawyer Oncology 09/25/24 Fly Tier Relationship Specialty Start Date End Date Julio Arriaga, BOAT HOP.REGULATORY LEADER [address] [place] [phone] PCP - General Internal Medicine 10/18/22 Ismael Kidd (Rn)(Hist), RN Specialty Portable Sawyer Hematology/Oncology 08/30/17 Quin Nolan DO [address] [place] [place] [address] Hospice Physician Peripheral Vascular 01/26/19 Jennifer Arias MD [address] [place] [facility] 209 [place], [place] [address] Physician Internal Medicine 02/11/19 Andrez Pitts DO [address] [facility] [address] [place] [address] Gastroenterology 11/21/23 Kenya Garcia MD [address] [place] [address] General Surgery 09/15/24 Sidney Joya MD [address] [place] [address] Radiation Oncology 09/16/24 Fredi Jones MD 1261 [facility] 110 [place] [address] Cardiology 09/16/24 Sarah Pearson PA-C [address] [place], [place] [id number] Rheumatology 09/16/24 Raul Hendrix LISW [address] [place] [address] In Home Aide Hematology/Oncology 09/18/24 Josh Bennett DO [address] [place] [address] Hematology/Oncology 09/25/24 Roxanne Bland, RN Specialty Portable Sawyer Oncology 09/25/24 Fly Tier Relationship Specialty Start Date End Date Julio Arriaga, BOAT HOP.REGULATORY LEADER [address] [place] [phone] PCP - General Internal Medicine 10/18/22 Ismael Kidd (Rn)(Hist), RN Specialty Portable Sawyer Hematology/Oncology 08/30/17 Quin Nolan DO [address] [place] [address] Hospice Physician Peripheral Vascular 01/26/19 Jennifer Arias MD 4125 [facility] 209 [place] [address] Physician Internal Medicine 02/11/19 Andrez Pitts DO [address] [facility] [address] [place] [address] Gastroenterology 11/21/23 Kenya Garcia MD [address] [place] [address] General Surgery 09/15/24 Sidney Joya MD [address] [place] [address] Radiation Oncology 09/16/24 Fredi Jones MD 1261 [facility] [address] [place] [address] Cardiology 09/16/24 Sarah Pearson, PAMadayC [address] [place] [address] Rheumatology 09/16/24 Raul Hendrix LISW [address] [place] [address] In Home Aide Hematology/Oncology 09/18/24 Josh Bennett DO [address] [place] [place] [address] Hematology/Oncology 09/25/24 Roxanne Bland RN Specialty Portable Sawyer Oncology 09/25/24 Fly Tier Relationship Specialty Start Date End Date Julio Arriaga, BOAT HOP.REGULATORY LEADER [address] [place] [phone] PCP - General Internal Medicine 10/18/22 Ismael Kidd (Rn)(Hist), RN Specialty Portable Sawyer Hematology/Oncology 08/30/17 Quin Nolan DO [address] [place] [place], [place] [address]681 Hospice Physician Peripheral Vascular 01/26/19 Jennifer Arias MD [address] [address] [address] Physician Internal Medicine 02/11/19 Andrez Pitts DO [address] [place] [address] Gastroenterology 11/21/23 Kenya Garcia MD [address]61 [place], [place] 177[address] General Surgery 09/15/24 Sidney Joya MD [address] [place], [place] [address]78[address] Radiation Oncology 09/16/24 Fredi Jones MD 1261 [facility] [address] [place] [address] Cardiology 09/16/24 Sarah Pearson PA-C [address] [place] [address] Rheumatology 09/16/24 Raul Hendrix LISW 721 [place] [address] In Home Aide Hematology/Oncology 09/18/24 Josh Bennett DO [address] [place], [place] 6[address]01 Hematology/Oncology 09/25/24 Roxanne Bland RN Specialty Portable Sawyer Oncology 09/25/24 Fly Tier Relationship Specialty Start Date End Date Julio Arriaga, BOAT HOP.REGULATORY LEADER [address] [place] [address] PCP - General Internal Medicine 10/18/22 Ismael Kidd (Rn)(Hist), RN Specialty Portable Sawyer Hematology/Oncology 08/30/17 Quin Nolan DO [address] [facility] [place], [place] 20[address] Hospice Physician Peripheral Vascular 01/26/19 Jennifer Arias MD [address] [facility] 209 [place] [address] Physician Internal Medicine 02/11/19 Andrez Pitts DO [address] [facility] [address] [place] [address] Gastroenterology 11/21/23 Kenya Garcia MD [address] [place] [address] General Surgery 09/15/24 Sidney Joya MD [address] [facility] [place] [address] Radiation Oncology 09/16/24 Fredi Jones MD 1261 [facility] 110 [place], [place] [address] Cardiology 09/16/24 Sarah Pearson, PAMadayC 136[address] [place], [place] [id number] Rheumatology 09/16/24 Raul Hendrix LISW 721 [place] [address] In Home Aide Hematology/Oncology 09/18/24 Josh Bennett DO [address] [facility] [place], [place] [address] Hematology/Oncology 09/25/24 Roxanne Bland RN Specialty Portable Sawyer Oncology 09/25/24 Fly Tier Relationship Specialty Start Date End Date Julio Arriaga, BOAT HOP.REGULATORY LEADER [address] [place] [phone] PCP - General Internal Medicine 10/18/22 Ismael Kidd (Rn)(Hist), RN Specialty Portable Sawyer Hematology/Oncology 08/30/17 Quin Nolan DO [address] [facility] [place], [place] 374[address] Hospice Physician Peripheral Vascular 01/26/19 Jennifer Arias MD [address] [place] [facility] 209 [place], [place] [address] Physician Internal Medicine 02/11/19 Andrez Pitts DO 1761 [facility] [address] [place] [address], [place] [address] Gastroenterology 11/21/23 Kenya Garcia MD [address] [place] [address] General Surgery 09/15/24 Sidney Joya MD [address] [place] 495141 Radiation Oncology 09/16/24 Fredi Jones MD [address] [facility] 110 [place] [address] Cardiology 09/16/24 Sarah Pearson PAMadayC [address]5 [place] [address] Rheumatology 09/16/24 Raul Hendrix LISW [address] [place] [address] In Home Aide Hematology/Oncology 09/18/24 Josh Bennett DO [address] [place], [place] [address]561 Hematology/Oncology 09/25/24 Roxanne Bland, RN Specialty Portable Sawyer Oncology 09/25/24 Team Status: Active Member Role Status Dates Julio Arriaga AUTOMOTIVE SALES MANAGER, AUTOMOTIVE SALES MANAGER-C Primary Care Provider Active Start: October 19, 2024 Dr. Licnoln Richards MD Attending Provider Active S tart: October 19, 2024 Dr. Josh Bennett DO Referring Provider Active St art: October 19, 2024 Team Status: Inactive Member Role Status Dates Julio Arriaga AUTOMOTIVE SALES MANAGER, AUTOMOTIVE SALES MANAGER-C Primary Care Provider Active Start: October 24, 2024 End: October 25, 2024 Dr. Rigoberto Dow DO Attending Provider Active Start : October 24, 2024 End: October 25, 2024 Dr. Rigoberto Dow , DO Emergency Provider Active Start : October 24, 2024 End: October 25, 2024 Team Status: Inactive Member Role Status Dates Julio Arriaga AUTOMOTIVE SALES MANAGER, AUTOMOTIVE SALES MANAGER-C Primary Care Provider Active Start: October 30, 2024 End: October 30, 2024 Dr. Gaudencio Ambriz DO Emergency Provider Active Start: October 30, 2024 End: October 30, 2024 Fly Tier Relationship Specialty Start Date End Date Julio Arriaga, BOAT HOP.REGULATORY LEADER [address]61 [place] [address] PCP - General Internal Medicine 10/18/22 Ismael Kidd (Rn)(Hist), RN Specialty Portable Sawyer Hematology/Oncology 08/30/17 Quin Nolan DO [address] [place], [place] [address]2631 Hospice Physician Peripheral Vascular 01/26/19 Jennifer Arias MD [address] [place] [facility] 209 [place], [place] [address] Physician Internal Medicine 02/11/19 Andrez Pitts DO [address] [facility] [address] [place], [place] [address] Gastroenterology 11/21/23 Kenya Garcia MD [address] [place] [address] General Surgery 09/15/24 Sidney Joya MD [address] [place] [address] Radiation Oncology 09/16/24 Fredi Jones MD 1261 [facility] [address] [place], [place] [address] Cardiology 09/16/24 Sarah Pearson PA-C [address] [place], [place] [address]10 Rheumatology 09/16/24 Raul Hendrix LISW 721 [place] [address] In Home Aide Hematology/Oncology 09/18/24 Josh Bennett DO 7[address] [facility] [place], [place] [address] Hematology/Oncology 09/25/24 Roxanne Bland, LÓPEZ Specialty Portable Sawyer Oncology 09/25/24 Fly Tier Relationship Specialty Start Date End Date Julio Arriaga, BOAT HOP.REGULATORY LEADER [address] [place] [phone] PCP - General Internal Medicine 10/18/22 Ismael Kidd (Rn)(Hist), RN Specialty Portable Sawyer Hematology/Oncology 08/30/17 Quin Nolan DO [address] [place], [place] 8[address]861 Hospice Physician Peripheral Vascular 01/26/19 Jennifer Arias MD [address] [address] Physician Internal Medicine 02/11/19 Andrez Pitts DO [address] [place], [place] [address] Gastroenterology 11/21/23 Kenya Garcia MD [address] [place] [address] General Surgery 09/15/24 Sidney Joya MD [address] [place] [address] Radiation Oncology 09/16/24 Fredi Jones MD 1261 [facility] [address] [place] [address] Cardiology 09/16/24 Sarah Pearson, PAMadayC [address] [place] [place], [place] [address]80 Rheumatology 09/16/24 Raul Hendrix LISW 721 [place] [address] In Home Aide Hematology/Oncology 09/18/24 Josh Bennett DO 7[address] [place] [address] Hematology/Oncology 09/25/24 Roxanne Bland RN Specialty Portable Sawyer Oncology 09/25/24 Fly Tier Relationship Specialty Start Date End Date Julio Arriaga, BOAT HOP.REGULATORY LEADER [address] [place] [phone] PCP - General Internal Medicine 10/18/22 Ismael Kidd (Rn)(Hist), RN Specialty Portable Sawyer Hematology/Oncology 08/30/17 Quin Nolan DO [address] [place], [place] [phone] Hospice Physician Peripheral Vascular 01/26/19 Jennifer Arias MD [address] [facility] 209 [place], [place] [address]283 Physician Internal Medicine 02/11/19 Andrez Pitts DO [address] [facility] [address] [place], [place] [address] Gastroenterology 11/21/23 Kenya Garcia MD [address] [place], [place] 991641 General Surgery 09/15/24 Sidney Joya MD 721 [place] [address] Radiation Oncology 09/16/24 Fredi Jones MD [address] 9[address] Cardiology 09/16/24 Sarah Pearson, PARowan 1365 [place] [address] Rheumatology 09/16/24 Raul Hendrix LISW 721 [place] [address] In Home Aide Hematology/Oncology 09/18/24 Josh Bennett DO 721 [place] [address] Hematology/Oncology 09/25/24 Roxanne Bland RN Specialty Portable Sawyer Oncology 09/25/24 Fly Tier Relationship Specialty Start Date End Date Julio Arriaga, BOAT HOP.REGULATORY LEADER [address] [place] [phone] PCP - General Internal Medicine 10/18/22 Ismael Kidd (Rn)(Hist), RN Specialty Portable Sawyer Hematology/Oncology 08/30/17 Quin Nolan DO [address] [place] [address] Hospice Physician Peripheral Vascular 01/26/19 Jennifer Arias MD [address] [place] [facility] 209 [place] [address] Physician Internal Medicine 02/11/19 Andrez Pitts DO [address] [facility] [address] [place] [address] Gastroenterology 11/21/23 Kenya Garcia MD [address] [place] [address] General Surgery 09/15/24 Sidney Joya MD [address] [place], [place] 895771 Radiation Oncology 09/16/24 Fredi Jones MD 1261 [facility] [address] [place], [place] [id number] Cardiology 09/16/24 Sarah Pearson, PARowan 136[address] [place], [place] 563530 Rheumatology 09/16/24 Raul Hendrix LISW 721 [place] [address] In Home Aide Hematology/Oncology 09/18/24 Josh Bennett DO [address] [place] [address] Hematology/Oncology 09/25/24 Roxanne Bland RN Specialty Portable Sawyer Oncology 09/25/24 Fly Tier Relationship Specialty Start Date End Date Julio Arriaga, BOAT HOP.REGULATORY LEADER [address] [place] [phone] PCP - General Internal Medicine 10/18/22 Ismael Kidd (Rn)(Hist), RN Specialty Portable Sawyer Hematology/Oncology 08/30/17 Quin Nolan DO [address] [place], [place] [address]851 Hospice Physician Peripheral Vascular 01/26/19 Jennifer Arias MD [address] [facility] 209 [place], [place] [address] Physician Internal Medicine 02/11/19 Andrez Pitts DO [address] [facility] [address] [place], [place] [address]351 Gastroenterology 11/21/23 Kenya Garcia MD [address] [place] [address] General Surgery 09/15/24 Sidney Joya MD [address] [place] [address], [place] 112[address] Radiation Oncology 09/16/24 Fredi Jones MD [address] [facility] [address] [place], [place] [address] Cardiology 09/16/24 Sarah Pearson PA-Marga [address] [place], [place] 319490 Rheumatology 09/16/24 Raul Hendrix LISW [address] [place] [address] In Home Aide Hematology/Oncology 09/18/24 Josh Bennett DO [address] [place] [address], [place] [address] Hematology/Oncology 09/25/24 Roxanne Bland RN Specialty Portable Sawyer Oncology 09/25/24 Fly Tier Relationship Specialty Start Date End Date Corina, Julio D, BOAT HOP.REGULATORY LEADER [address] [place] [phone] PCP - General Internal Medicine 10/18/22 Ismael Kidd (Rn)(Hist), RN Specialty Portable Sawyer Hematology/Oncology 08/30/17 Quin Nolan DO [address] [place] [address] Hospice Physician Peripheral Vascular 01/26/19 Jennifer Arias MD 4125 [facility] 209 [place], [place] [address] Physician Internal Medicine 02/11/19 Andrez Pitts DO [address] [facility] [address] [place] [address] Gastroenterology 11/21/23 Kenya Garcia MD [address] [place] [address] General Surgery 09/15/24 Sidney Joya MD [address] [place] [address] Radiation Oncology 09/16/24 Fredi Jones MD 1261 [facility] [address] [place], [place] [address] Cardiology 09/16/24 Sarah Pearson PA-C [address] [place], [place] 6[address]20 Rheumatology 09/16/24 Raul Hendrix LISW [address] [place] [address] In Home Aide Hematology/Oncology 09/18/24 Josh Bennett DO [address] [place] [address] Hematology/Oncology 09/25/24 Roxanne Bland, LÓPEZ Specialty Portable Sawyer Oncology 09/25/24 Fly Tier Relationship Specialty Start Date End Date Julio Arriaga, BOAT HOP.REGULATORY LEADER [address] [place] [phone] PCP - General Internal Medicine 10/18/22 Ismael Kidd (Rn)(Hist), RN Specialty Portable Sawyer Hematology/Oncology 08/30/17 Quin Nolan DO [address] [place], [place] [address] Hospice Physician Peripheral Vascular 01/26/19 Jennifer Arias MD [address] [facility] 209 [place], [place] [address] Physician Internal Medicine 02/11/19 Andrez Pitts DO [address] [facility] [address] [place] [address] Gastroenterology 11/21/23 Kenya Garcia MD [address] [place] [address] General Surgery 09/15/24 Sidney Joya MD [address] [place] [address] Radiation Oncology 09/16/24 Fredi Jones MD [address] JUAN A [address] [place] [address] Cardiology 09/16/24 Sarah Pearson PA-C [address] [place] [address] Rheumatology 09/16/24 Raul Hendrix LISW [address] [place] [address] In Home Aide Hematology/Oncology 09/18/24 Josh Bennett DO [address] [place] [address] Hematology/Oncology 09/25/24 Roxanne Bland RN Specialty Portable Sawyer Oncology 09/25/24 Fly Tier Relationship Specialty Start Date End Date Julio Arriaga, BOAT HOP.REGULATORY LEADER [address]61 [place] [phone] PCP - General Internal Medicine 10/18/22 Ismael Kidd (Rn)(Hist), RN Specialty Portable Sawyer Hematology/Oncology 08/30/17 Quin Nolan DO [address] [place], [place] [id number] Hospice Physician Peripheral Vascular 01/26/19 Jennifer Arias MD [address] [facility] 209 [place], [place] [address]523 Physician Internal Medicine 02/11/19 Andrez Pitts DO [address] [place], [place] [address] Gastroenterology 11/21/23 Kenya Garcia MD [address] [place] [address] General Surgery 09/15/24 Sidney Joya MD [address] [place] [address] Radiation Oncology 09/16/24 Fredi Jones MD 1261 [facility] [address] [place], [place] [address]134 Cardiology 09/16/24 Sarah Pearson, LIZZIE [address] [place] [place], [place] [address]40 Rheumatology 09/16/24 Raul Hendrix LISW [address] [place] [address] In Home Aide Hematology/Oncology 09/18/24 Josh Bennett DO [address] [place] [address] Hematology/Oncology 09/25/24 Roxanne Bland RN Specialty Portable Sawyer Oncology 09/25/24 Fly Tier Relationship Specialty Start Date End Date Julio Arriaga, BOAT HOP.REGULATORY LEADER [address] [place] [phone] PCP - General Internal Medicine 10/18/22 Ismael Kidd (Rn)(Hist), RN Specialty Portable Sawyer Hematology/Oncology 08/30/17 Quin Nolan DO [address] [facility] [place] [place], [place] [address] Hospice Physician Peripheral Vascular 01/26/19 Jennifer Arias MD [address] [place] [facility] 209 [place], [place] [address]2843 Physician Internal Medicine 02/11/19 Andrez Pitts DO [address] [place], [place] [id number] Gastroenterology 11/21/23 Kenya Garcia MD [address] [place] [address] General Surgery 09/15/24 Sidney Joya MD [address] [place] [address] Radiation Oncology 09/16/24 Fredi Jones MD 1261 [facility] [address] [place], [place] 422334 Cardiology 09/16/24 Sarah Pearson, PAMadayC [address] [place], [place] 743440 Rheumatology 09/16/24 Raul Hendrix LISW 721 [place] [address] In Home Aide Hematology/Oncology 09/18/24 Josh Bennett DO [address] [place], [place] 794441 Hematology/Oncology 09/25/24 Roxanne Bland RN Specialty Portable Sawyer Oncology 09/25/24 Fly Tier Relationship Specialty Start Date End Date Julio Arriaga, BOAT HOP.REGULATORY LEADER [address] [place] [phone] PCP - General Internal Medicine 10/18/22 Ismael Kidd (Rn)(Hist), RN Specialty Portable Sawyer Hematology/Oncology 08/30/17 Quin Nolan DO [address] [place], [place] [address] Hospice Physician Peripheral Vascular 01/26/19 Jennifer Arias MD [address] [facility] 209 [place], [place] [address] Physician Internal Medicine 02/11/19 Andrez Pitts DO [address] [address] Gastroenterology 11/21/23 Kenya Garcia MD [address] [place] [address] General Surgery 09/15/24 Sidney Joya MD [address] [place], [place] [address] Radiation Oncology 09/16/24 Fredi Jones MD [address] [id number] Cardiology 09/16/24 Sarah Pearson, LIZZIE [address] [place], [place] [address] Rheumatology 09/16/24 Raul Hendrix LISW 721 [place] [address] In Home Aide Hematology/Oncology 09/18/24 Josh Bennett DO [address] [place], [place] 564521 Hematology/Oncology 09/25/24 Roxanne Bland RN Specialty Portable Sawyer Oncology 09/25/24 Fly Tier Relationship Specialty Start Date End Date Julio Arriaga, BOAT HOP.REGULATORY LEADER [address] [place] [phone] PCP - General Internal Medicine 10/18/22 Ismael Kidd (Rn)(Hist), RN Specialty Portable Sawyer Hematology/Oncology 08/30/17 Quin Nolan DO [address] [place] [address] Hospice Physician Peripheral Vascular 01/26/19 Jennifer Arias MD [address] [facility] 209 [place] [address] Physician Internal Medicine 02/11/19 Andrez Pitts DO [address] [facility] [address] [place] [address], [place] [address]311 Gastroenterology 11/21/23 Kenya Garcia MD [address] [place] [address] General Surgery 09/15/24 Sidney Joya MD [address] [place] 426[address] Radiation Oncology 09/16/24 Fredi Jones MD 1261 [facility] [address] [place], [place] [address] Cardiology 09/16/24 Sarah Pearson, LIZZIE [address] [place], [place] [address]350 Rheumatology 09/16/24 Raul Hendrix LISW [address] [place] [address] In Home Aide Hematology/Oncology 09/18/24 Josh Bennett DO [address] [place], [place] [address] Hematology/Oncology 09/25/24 Roxanne Bland RN Specialty Portable Sawyer Oncology 09/25/24 Fly Tier Relationship Specialty Start Date End Date Julio Arriaga, BOAT HOP.REGULATORY LEADER [address]61 [place] [address] PCP - General Internal Medicine 10/18/22 Ismael Kidd (Rn)(Hist), RN Specialty Portable Sawyer Hematology/Oncology 08/30/17 Quin Nolan DO [address] [place] [address] Hospice Physician Peripheral Vascular 01/26/19 Jennifer Arias MD [address] [place] [facility] 209 [place], [place] [address]443 Physician Internal Medicine 02/11/19 Andrez Pitts DO 1761 [facility] 3B [place] [address] Gastroenterology 11/21/23 Kenya Garcia MD 1761 [facility] [place] [address] General Surgery 09/15/24 Sidney Joya MD [address] [place] [address] Radiation Oncology 09/16/24 Fredi Jones MD 1261 [facility] 110 [place] [address] Cardiology 09/16/24 Sarah Pearson PA-C [address] [place], [place] [address] Rheumatology 09/16/24 Raul Hendrix LISW [address] [place] [address] In Home Aide Hematology/Oncology 09/18/24 Josh Bennett DO [address] [address] Hematology/Oncology 09/25/24 Roxanne Bland, RN Specialty Portable Sawyer Oncology 09/25/24 Fly Tier Relationship Specialty Start Date End Date Julio Arriaga, BOAT HOP.REGULATORY LEADER [address] [place] [phone] PCP - General Internal Medicine 10/18/22 Ismael Kidd (Rn)(Hist), RN Specialty Portable Sawyer Hematology/Oncology 08/30/17 Quin Nolan DO [address] [place] [address] Hospice Physician Peripheral Vascular 01/26/19 Jennifer Arias MD 4125 [facility] 209 [place], [place] [address]903 Physician Internal Medicine 02/11/19 Andrez Pitts DO 1761 [facility] RUBA [facility] 3B [place] [address] Gastroenterology 11/21/23 Kenya Garcia MD 1761 [facility] [place] [address] General Surgery 09/15/24 Sidney Joya MD [address] [place] [address] Radiation Oncology 09/16/24 Fredi Jones MD 1261 [facility] [address] [place] [address] Cardiology 09/16/24 Sarah Pearson, PA-C [address] [place] [address] Rheumatology 09/16/24 Raul Hendrix LISW [address] [place] [address] In Home Aide Hematology/Oncology 09/18/24 Josh Bennett DO [address] [place], [place] [address] Hematology/Oncology 09/25/24 Roxanne Bland RN Specialty Portable Sawyer Oncology 09/25/24 Fly Tier Relationship Specialty Start Date End Date Julio Arriaga, BOAT HOP.REGULATORY LEADER [address] [place] [phone] PCP - General Internal Medicine 10/18/22 Ismael Kidd (Rn)(Hist), RN Specialty Portable Sawyer Hematology/Oncology 08/30/17 Quin Nolan DO [address] [place], [place] 58[address]71 Hospice Physician Peripheral Vascular 01/26/19 Jennifer Arias MD [address] 7255[address] Physician Internal Medicine 02/11/19 Andrez Pitts DO [address] [place] [address] Gastroenterology 11/21/23 Kenya Garcia MD [address]61 [place] [address] General Surgery 09/15/24 Sidney Joya MD [address] [place], [place] 54[address] Radiation Oncology 09/16/24 Fredi Jones MD 1261 [facility] 110 [place] [address] Cardiology 09/16/24 Sarah Pearson PA-C [address] [place] [address] Rheumatology 09/16/24 Raul Hendrix LISW 721 [place] [address] In Home Aide Hematology/Oncology 09/18/24 Josh Bennett DO [address] [place], [place] 97[address]21 Hematology/Oncology 09/25/24 Roxanne Bland RN Specialty Portable Sawyer Oncology 09/25/24 Fly Tier Relationship Specialty Start Date End Date Julio Arriaga, BOAT HOP.REGULATORY LEADER [address] [place] [phone] PCP - General Internal Medicine 10/18/22 Ismael Kidd (Rn)(Hist), RN Specialty Portable Sawyer Hematology/Oncology 08/30/17 Quin Nolan DO [address] [facility] [place], [place] [address] Hospice Physician Peripheral Vascular 01/26/19 Jennifer Arias MD [address] [facility] 209 [place] [address] Physician Internal Medicine 02/11/19 Andrez Pitts DO [address] [facility] [address] [place] [address] Gastroenterology 11/21/23 Kenya Garcia MD [address] [place] [address] General Surgery 09/15/24 Sidney Joya MD [address] [place] [address] Radiation Oncology 09/16/24 Fredi Jones MD [address] 4[address] Cardiology 09/16/24 Sarah Pearson PAMadayC [address] [place], [place] 156150 Rheumatology 09/16/24 Raul Hendrix LISW 721 [place] [address] In Home Aide Hematology/Oncology 09/18/24 Josh Bennett DO [address] [place] [address] Hematology/Oncology 09/25/24 Roxanne Bland, LÓPEZ Specialty Portable Sawyer Oncology 09/25/24 Team Status: Inactive Member Role Status Dates Julio Arriaga NP, AUTOMOTIVE SALES MANAGER-C Primary Care Provider Active Start: October 30, [...] End: December 27, 2024 Julio Arriaga NP, AUTOMOTIVE SALES MANAGER-C Primary Care Provider Active Start: December 27, 2024 End: December 27, 2024 Fly Tier Relationship Specialty Start Date End Date Julio Arriaga, BOAT HOP.REGULATORY LEADER [address] [place] [phone] PCP - General Internal Medicine 10/18/22 Ismael Kidd (Rn)(Hist), RN Specialty Portable Sawyer Hematology/Oncology 08/30/17 Quin Nolan DO [address] [place] [address] Hospice Physician Peripheral Vascular 01/26/19 Jennifer Arias MD [address] [facility] 209 [place], [place] 68[address] Physician Internal Medicine 02/11/19 Andrez Pitts DO [address] [facility] [address] [place] [address], [place] [address] Gastroenterology 11/21/23 Kenya Garcia MD [address] [place] [address] General Surgery 09/15/24 Sidney Joya MD [address] [place] [address] Radiation Oncology 09/16/24 Fredi Jones MD 1261 [facility] [address] [place], [place] [address] Cardiology 09/16/24 Sarah Pearson PA-C [address] [place] [address] Rheumatology 09/16/24 Raul Hendrix LISW [address] [place] [address] In Home Aide Hematology/Oncology 09/18/24 Josh Bennett DO [address] [place], [place] 88[address]51 Hematology/Oncology 09/25/24 Roxanne Bland RN Specialty Portable Sawyer Oncology 09/25/24 Fly Tier Relationship Specialty Start Date End Date Julio Arriaga, BOAT HOP.REGULATORY LEADER [address]61 [place] [address] PCP - General Internal Medicine 10/18/22 Ismael Kidd (Rn)(Hist), RN Specialty Portable Sawyer Hematology/Oncology 08/30/17 Quin Nolan DO [address] [place], [place] 9[address]251 Hospice Physician Peripheral Vascular 01/26/19 Jennifer Arias MD [address] [facility] 209 [place], [place] [address] Physician Internal Medicine 02/11/19 Andrez Pitts DO 1761 [facility] 3[address] [place] [address] Gastroenterology 11/21/23 Kenya Garcia MD 1761 [facility] [place] [address] General Surgery 09/15/24 Sidney Joya MD [address] [place] [address] Radiation Oncology 09/16/24 Fredi Jones MD 1261 [facility] 110 [place], [place] [address] Cardiology 09/16/24 Sarah Pearson PA-C [address] [place], [place] [address] Rheumatology 09/16/24 Raul Hendrix LISW 721 [place] [address] In Home Aide Hematology/Oncology 09/18/24 Josh Bennett DO 721 [place] [address] Hematology/Oncology 09/25/24 Roxanne Bland RN Specialty Portable Sawyer Oncology 09/25/24 Team Status: Inactive Member Role Status Dates Woo Thapa MD Attending Provider Active Star t: December 27, 2024 End: December 27, 2024 Woo Thapa MD Emergency Provider Active Star t: December 27, 2024 End: December 27, 2024 Julio Arriaga NP, AUTOMOTIVE SALES MANAGER-C Primary Care Provider Active Start: December 27, 2024 End: December 27, 2024 Team Status: Inactive Member Role Status Dates Michelle Baker NP-C Attending Provider Active Start: January 14, 2025 End: January 14, 2025 Julio Arriaga NP, AUTOMOTIVE SALES MANAGER-C Primary Care Provider Active Start: January 14, 2025 End: January 14, 2025 Julio Arriaga NP, AUTOMOTIVE SALES MANAGER-C Referring Provider Active Start: January 14, 2025 End: January 14, 2025 Fly Tier Relationship Specialty Start Date End Date Julio Arriaga, BOAT HOP.REGULATORY LEADER [address] [place] [address] PCP - General Internal Medicine 10/18/22 Ismael Kidd (Rn)(Hist), RN Specialty Portable Sawyer Hematology/Oncology 08/30/17 Quin Nolan DO [address] [place], [place] 141351 Hospice Physician Peripheral Vascular 01/26/19 Jennifer Arias MD [address] [address] Physician Internal Medicine 02/11/19 Andrez Pitts DO [address] [facility] [address] [place] [address] Gastroenterology 11/21/23 Kenya Garcia MD [address] [place] [address] General Surgery 09/15/24 Sidney Joya MD [address] [place] [address] Radiation Oncology 09/16/24 Fredi Jones MD 1261 [facility] 110 [place], [place] [address] Cardiology 09/16/24 Sarah Pearson PA-C [address] [place], [place] [address]370 Rheumatology 09/16/24 Raul Hendrix LISW 721 [place] [address] In Home Aide Hematology/Oncology 09/18/24 Josh Bennett DO [address] [place] [address] Hematology/Oncology 09/25/24 Roxanne Bland RN Specialty Portable Sawyer Oncology 09/25/24 Fly Tier Relationship Specialty Start Date End Date Julio Arriaga, BOAT HOP.REGULATORY LEADER [address] [place] [phone] PCP - General Internal Medicine 10/18/22 Ismael Kidd (Rn)(Hist), RN Specialty Portable Sawyer Hematology/Oncology 08/30/17 Quin Nolan DO [address] [place], [place] [address] Hospice Physician Peripheral Vascular 01/26/19 Jennifer Arias MD [address] [facility] 209 [place], [place] [address]3 Physician Internal Medicine 02/11/19 Andrez Pitts DO 1761 [facility] [address] [place], [place] [address]23[address] Gastroenterology 11/21/23 Kenya Garcia MD [address] [place] [address] General Surgery 09/15/24 Sidney Joya MD [address] [place] [address] Radiation Oncology 09/16/24 Fredi Jones MD 1261 [facility] [address] [place], [place] [address]224 Cardiology 09/16/24 Sarah Pearson PA-C [address] [place], [place] 477820 Rheumatology 09/16/24 Raul Hendrix LISW [address] [place] [address] In Home Aide Hematology/Oncology 09/18/24 Josh Bennett DO [address] [address] Hematology/Oncology 09/25/24 Roxanne Bland, LÓPEZ Specialty Portable Sawyer Oncology 09/25/24 Team Status: Active Member Role/Relationship Status Dates Julio Arriaga NP, AUTOMOTIVE SALES MANAGER-C Primary Care Provider Active Team Status: Inactive Member Role/Relationship Status Dates Julio Arriaga NP, AUTOMOTIVE SALES MANAGER-C Primary Care Provider Active Start: October 19, 2024 End: October 19, 2024 Dr. Josh Bennett DO Attending Provider Active St art: October 19, 2024 End: October 19, 2024 Dr. Josh Bennett , Referring Provider Active St art: October 19, 2024 End: October 19, 2024 Team Status: Active Member Role/Relationship Status Dates Julio Arriaga AUTOMOTIVE SALES MANAGER, AUTOMOTIVE SALES MANAGER-C Primary Care Provider Active Start: October 19, 2024 Dr. Lincoln Richards MD Attending Provider Active S tart: October 19, 2024 Dr. Josh Bennett , Referring Provider Active St art: October 19, 2024 Team Status: Inactive Member Role/Relationship Status Dates Julio Arriaga NP, AUTOMOTIVE SALES MANAGER-C Primary Care Provider Active Start: October 24, 2024 End: October 25, 2024 Dr. Rigoberto Dow DO Attending Provider Active Start : October 24, 2024 End: October 25, 2024 Dr. Rigoberto Dow DO Emergency Provider Active Start : October 24, 2024 End: October 25, 2024 Team Status: Inactive Member Role/Relationship Status Dates Julio Arriaga NP, AUTOMOTIVE SALES MANAGER-C Primary Care Provider Active Start: October 30, [...] End: December 27, 2024 Julio Arriaga NP, AUTOMOTIVE SALES MANAGER-C Primary Care Provider Active Start: December 27, 2024 End: December 27, 2024 Team Status: Inactive Member Role/Relationship Status Dates Michelle Baker NP-C Attending Provider Active Start: January 14, 2025 End: January 14, 2025 Julio Arriaga AUTOMOTIVE SALES MANAGER, AUTOMOTIVE SALES MANAGER-C Primary Care Provider Active Start: January 14, 2025 End: January 14, 2025 Julio Arriaga AUTOMOTIVE SALES MANAGER, AUTOMOTIVE SALES MANAGER-C Referring Provider Active Start: January 14, 2025 End: January 14, 2025 Team Status: Inactive Member Role/Relationship Status Dates Julio Corina AUTOMOTIVE SALES MANAGER, AUTOMOTIVE SALES MANAGER-C Primary Care Provider Active Start: February 02, 2025 End: February 02, 2025 Julio Arriaga AUTOMOTIVE SALES MANAGER, AUTOMOTIVE SALES MANAGER-C Referring Provider Active Start: February 02, 2025 End: February 02, 2025 Michelle Baker NP-Marga Attending Provider Active Start: February 02, 2025 End: February 02, 2025 Team Status: Inactive Member Role/Relationship Status Dates Julio Arriaga AUTOMOTIVE SALES MANAGER, AUTOMOTIVE SALES MANAGER-C Primary Care Provider Active Start: February 09, 2025 End: February 09, 2025 Julio Arriaga NP, AUTOMOTIVE SALES MANAGER-C Referring Provider Active Start: February 09, 2025 End: February 09, 2025 Dr. Kenya Garcia MD Attending Provider Active Start: February 09, 2025 End: February 09, 2025 Fly Tier Relationship Specialty Start Date End Date Julio Arriaga, BOAT HOP.REGULATORY LEADER [address] [place] [address] PCP - General Internal Medicine 10/18/22 Ismael Kidd (Rn)(Hist), RN Specialty Portable Sawyer Hematology/Oncology 08/30/17 Quin Nolan DO [address] [place], [place] [address] Hospice Physician Peripheral Vascular 01/26/19 Jennifer Arias MD [address] [address] Physician Internal Medicine 02/11/19 Andrez Pitts DO [address] [place] [id number] Gastroenterology 11/21/23 Kenya Garcia MD [address]61 [place] [address] General Surgery 09/15/24 Sidney Joya MD [address] [place] [address] Radiation Oncology 09/16/24 Fredi Jones MD [address] [facility] 110 [place] [address] Cardiology 09/16/24 Sarah Pearson PA-C [address] [place] [address] Rheumatology 09/16/24 Raul Hendrix LISW [address] [place] [address] In Home Aide Hematology/Oncology 09/18/24 Josh Bennett DO [address] [place] [address] Hematology/Oncology 09/25/24 Roxanne Bland RN Specialty Portable Sawyer Oncology 09/25/24 Team Status: Inactive Member Role/Relationship Status Dates Julio Arriaga NP, AUTOMOTIVE SALES MANAGER-C Primary Care Provider Active Start: October 30, [...] End: December 27, 2024 Julio Arriaga NP, AUTOMOTIVE SALES MANAGER-C Primary Care Provider Active Start: December 27, 2024 End: December 27, 2024 Team Status: Inactive Member Role/Relationship Status Dates Michelle Baker NP-C Attending Provider Active Start: January 14, 2025 End: January 14, 2025 Julio Arriaga NP, AUTOMOTIVE SALES MANAGER-C Primary Care Provider Active Start: January 14, 2025 End: January 14, 2025 Julio Arriaga NP, AUTOMOTIVE SALES MANAGER-C Referring Provider Active Start: January 14, 2025 End: January 14, 2025 Team Status: Inactive Member Role/Relationship Status Dates Julio Arriaga NP, AUTOMOTIVE SALES MANAGER-C Primary Care Provider Active Start: January 26, 2025 Dr. Sabina Scott MD Attending Provider Active Start: January 26, 2025 Team Status: Inactive Member Role/Relationship Status Dates Julio Arriaga AUTOMOTIVE SALES MANAGER, AUTOMOTIVE SALES MANAGER-C Primary Care Provider Active Start: February 02, 2025 End: February 02, 2025 Julio Arriaga AUTOMOTIVE SALES MANAGER, AUTOMOTIVE SALES MANAGER-C Referring Provider Active Start: February 02, 2025 End: February 02, 2025 Michelle Baker NP-C Attending Provider Active Start: February 02, 2025 End: February 02, 2025 Team Status: Inactive Member Role/Relationship Status Dates Julio Arriaga AUTOMOTIVE SALES MANAGER, AUTOMOTIVE SALES MANAGER-C Primary Care Provider Active Start: February 09, 2025 End: February 09, 2025 Julio Arriaga AUTOMOTIVE SALES MANAGER, AUTOMOTIVE SALES MANAGER-C Referring Provider Active Start: February 09, 2025 End: February 09, 2025 Dr. Kenya Garcia MD Attending Provider Active Start: February 09, 2025 End: February 09, 2025 Team Status: Inactive Member Role/Relationship Status Dates Julio Arriaga AUTOMOTIVE SALES MANAGER, AUTOMOTIVE SALES MANAGER-C Primary Care Provider Active Start: February 27, 2025 End: February 27, 2025 Dr. Pawel Cason MD Emergency Provider Active Sta rt: February 27, 2025 End: February 27, 2025 Team Status: Inactive Member Role/Relationship Status Dates Woo Thapa MD Attending Provider Active Star t: December 27, 2024 End: December 27, 2024 Woo Thapa MD Emergency Provider Active Star t: December 27, 2024 End: December 27, 2024 Julio Arriaga AUTOMOTIVE SALES MANAGER, AUTOMOTIVE SALES MANAGER-C Primary Care Provider Active Start: December 27, 2024 End: December 27, 2024 Team Status: Inactive Member Role/Relationship Status Dates Michelle Baker NP-C Attending Provider Active Start: January 14, 2025 End: January 14, 2025 Julio Arriaga AUTOMOTIVE SALES MANAGER, AUTOMOTIVE SALES MANAGER-C Primary Care Provider Active Start: January 14, 2025 End: January 14, 2025 Julio Arriaga AUTOMOTIVE SALES MANAGER, AUTOMOTIVE SALES MANAGER-C Referring Provider Active Start: January 14, 2025 End: January 14, 2025 Team Status: Inactive Member Role/Relationship Status Dates Julio Arriaga AUTOMOTIVE SALES MANAGER, AUTOMOTIVE SALES MANAGER-C Primary Care Provider Active Start: January 26, 2025 Dr. Sabina Scott MD Attending Provider Active Start: January 26, 2025 Team Status: Inactive Member Role/Relationship Status Dates Julio Arriaga AUTOMOTIVE SALES MANAGER, AUTOMOTIVE SALES MANAGER-C Primary Care Provider Active Start: February 02, 2025 End: February 02, 2025 Julio Arriaga AUTOMOTIVE SALES MANAGER, AUTOMOTIVE SALES MANAGER-C Referring Provider Active Start: February 02, 2025 End: February 02, 2025 Michelle Baker NP-C Attending Provider Active Start: February 02, 2025 End: February 02, 2025 Team Status: Inactive Member Role/Relationship Status Dates Julio Arriaga AUTOMOTIVE SALES MANAGER, AUTOMOTIVE SALES MANAGER-C Primary Care Provider Active Start: February 09, 2025 End: February 09, 2025 Julio Arriaga AUTOMOTIVE SALES MANAGER, AUTOMOTIVE SALES MANAGER-C Referring Provider Active Start: February 09, 2025 End: February 09, 2025 Dr. Kenya Garcia MD Attending Provider Active Start: February 09, 2025 End: February 09, 2025 Team Status: Inactive Member Role/Relationship Status Dates Julio Arriaga AUTOMOTIVE SALES MANAGER, AUTOMOTIVE SALES MANAGER-C Primary Care Provider Active Start: February 27, 2025 End: February 27, 2025 Dr. Pawel Cason MD Emergency Provider Active Sta rt: February 27, 2025 End: February 27, 2025 Team Status: Inactive Member Role/Relationship Status Dates Julio Arriaga AUTOMOTIVE SALES MANAGER, AUTOMOTIVE SALES MANAGER-C Primary Care Provider Active Start: March 02, 2025 End: March 02, 2025 Dr. Kenya Garcia MD Attending Provider Active Start: March 02, 2025 End: March 02, 2025 Dr. Kenya Garcia MD Referring Provider Active Start: March 02, 2025 End: March 02, 2025 Team Status: Active Member Role/Relationship Status Dates Julio Arriaga AUTOMOTIVE SALES MANAGER, AUTOMOTIVE SALES MANAGER-C Primary Care Provider Active Start: March 02, 2025 Dr. Kenya Garcia MD Attending Provider Active Start: March 02, 2025 Dr. Kenya Garcia MD Referring Provider Active Start: March 02, 2025 Dr. Kenya Garcia MD Other Provider Active St art: March 02, 2025 Team Status: Inactive Member Role/Relationship Status Dates Julio Arriaga AUTOMOTIVE SALES MANAGER, AUTOMOTIVE SALES MANAGER-C Primary Care Provider Active Start: February 27, 2025 End: February 27, 2025 Dr. Pawel Cason MD Attending Provider Active Sta rt: February 27, 2025 End: February 27, 2025 Dr. Pawel Cason MD Emergency Provider Active Sta rt: February 27, 2025 End: February 27, 2025 Team Status: Inactive Member Role/Relationship Status Dates Julio Arriaga NP, AUTOMOTIVE SALES MANAGER-C Primary Care Provider Active Start: March 16, 2025 End: March 16, 2025 Julio Arriaga NP, AUTOMOTIVE SALES MANAGER-C Referring Provider Active Start: March 16, 2025 End: March 16, 2025 [facility] Carl Attending Provider Active Start: March 16, 2025 End: March 16, 2025 Fly Tier Relationship Specialty Start Date End Date Julio Arriaga, BOAT HOP.[facility] [address] [place] [address] PCP - General Internal Medicine 10/18/22 Ismael Kidd (Rn)(Hist), RN Specialty Portable Sawyer Hematology/Oncology 08/30/17 Quin Nolan DO [address] [place], [place] [id number] Hospice Physician Peripheral Vascular 01/26/19 Jennifer Arias MD [address] [address] Physician Internal Medicine 02/11/19 Andrez Pitts DO [address] [id number] Gastroenterology 11/21/23 Kenya Garcia MD [address] [place] [address] General Surgery 09/15/24 Sidney Joya MD [address] [place], [place] [id number] Radiation Oncology 09/16/24 Fredi Jones MD [address] [facility] [address] [place] [address] Cardiology 09/16/24 Sarah Pearson PA-C [address] [place] [place], [place] [address] Rheumatology 09/16/24 Raul Hendrix LISW [address] [place] [address] In Home Aide Hematology/Oncology 09/18/24 Josh Bennett DO [address] [place] [address] Hematology/Oncology 09/25/24 Roxanne Bland RN Specialty Portable Sawyer Oncology 09/25/24 Fly Tier Relationship Specialty Start Date End Date Julio Arriaga, BOAT HOP.[employer]AT[employer] LEADER [address] [place] [id number] PCP - General Internal Medicine 10/18/22 Ismael Kidd (Rn)(Hist), RN Specialty Portable Sawyer Hematology/Oncology 08/30/17 Quin Nolan DO [address] [place], [place] [address] Hospice Physician Peripheral Vascular 01/26/19 Jennifer Arias MD [address] [facility] [address] [place], [place] [address] Physician Internal Medicine 02/11/19 Andrez Pitts DO [address] [place], [place] [address] Gastroenterology 11/21/23 Kenya Garcia MD [address] [place] [address] General Surgery 09/15/24 Sidney Joya MD [address] [facility] [place] [address] Radiation Oncology 09/16/24 Fredi Jones MD [address] [facility] [address] [place] [address] Cardiology 09/16/24 Sarah Pearson PA-C [address] [place] [address] Rheumatology 09/16/24 Raul Hendrix LISW [address] [place] [address] In Home Aide Hematology/Oncology 09/18/24 Josh Bennett DO [address] [place] [address] Hematology/Oncology 09/25/24 Roxanne Bland, LÓPEZ Specialty Portable Sawyer Oncology 09/25/24 Care Team (unrecognized sect ion and content) Care Team Personnel Name: SELENE PIERRE MD Member Role: Primary Care Physician Address: Address: [address] [place] [address]- Care Team Related Persons Name: TAYLOR HILL Name: MAGDA BORJAS Address: [facility] Care Team Personnel Name: SELENE PIERRE MD Member Role: Primary Care Physician Address: Address: [address] [place] [address] Care Team Related Persons Name: TAYLOR HILL Name: MAGDA BORJAS Address: [facility] Goals (unrecognized section and content) Goals may [...] over 30 Minutes, ONCE, 1 dose, On Sat09/26/23 at 1030, Total Volume: 100 mL EXP [...] BE BASED ON THE PRIMARY CLINICAL RECORDS. [employer] [facility]. provides no warranty or guarantee of the accuracy or completeness of information in this document.
--- NOTE | 2025-03-27 16:01 | EKG12_ITS ---
Test Reason : Blood Pressure : */* mmHG Vent. Rate : 71 BPM Atrial Rate : 71 BPM P-R Int : 146 ms QRS Dur : 98 ms QT Int : 416 ms P-R-T Axes : 56 48 52 degrees QTcB Int : 452 ms Sinus rhythm with occasional Premature ventricular complexes Left ventricular hypertrophy with repolarization abnormality ( Sokolow-Raines ) Abnormal ECG Confirmed by Russel Wallis ([id number]), video tape editor ELISHA PIERCE ([id number]) on 03/30/2025 10:32:59 AM Referred By: Confirmed By: Russel Wallis
--- NOTE | 2025-03-27 16:01 | ED.VIS.GI ---
HPI HPI - GI History of Present Illness Chief Complaint: Abd Pain Informant: patient Narrative Narrative: Patient is a 64-year-old female with history of irritable bowel syndrome with diarrhea, exocrine pancreatic insufficiency, Crohn's disease (states this is recently in question), diverticulitis, rheumatoid arthritis, fibromyalgia and anal cancer (fully treated earlier this year) presenting with worsening right sided abdominal pain nausea vomiting. Patient states her symptoms have been going on for months but they became particularly severe yesterday. She does not have a reason why. States the pain is in her right upper quadrant radiates to her back. She notes sometimes the pain is periumbilical. She has chronic watery diarrhea with no blood and no acute change in this. She states she last vomited prior to arrival despite taking Compazine. She denies any fever but does report feeling cold. She follows with Dr. Pitts and his nurse practitioner Michelle. States that she recently was taken off of her Creon, budesonide and Bentyl since some of seem to be worse helping however her symptoms have now worsened. She states that she does have gastric follow-through and esophagram scheduled. GI note from 03/16/2025 with Michelle Baker reviewed. Patient has ongoing chronic diarrhea. She has previously had a nondiagnostic colonoscopy without definitive findings of Crohn's disease. Blood work was consistent with possible pancreatic insufficiency however she did not respond to Creon. Follows with Dr. 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 Plan for taper of budesonide and trial of Imodium for management of diarrhea. [facility] Medical History Pancreatic insufficiency Crohn disease Cancer Walker as ambulation aid DVT (deep venous thrombosis) Gastric reflux 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 Mass of anus Perirectal abscess History of Crohn's disease Psoriatic arthritis Psoriasis Internal derangement of right knee Wears glasses Post-menopausal Depression Anxiety Ambulates with cane Injury of back Difficulty swallowing History of IBS History of hiatal hernia Former smoker Shortness of breath on exertion Chronic cough History of echocardiogram History of stress test Hypertension Cardiology follow-up encounter History of CHF (congestive heart failure) History of irregular heartbeat Acute pharyngitis, unspecified URI (upper respiratory infection) Contact with or suspected exposure to other viral communicable disease History of partial replacement of left hip joint using bipolar prosthesis Vitamin D deficiency HLD (hyperlipidemia) Insomnia Dry eye Regular astigmatism, bilateral PVCs (premature ventricular contractions) Coronary artery stenosis Chronic diastolic CHF (congestive heart failure) Iron malabsorption Osteoarthritis Lumbar spondylosis Osteoporosis Congenital cataract Intermittent palpitations Nausea TIA (transient ischemic attack) Acute maxillary sinusitis, unspecified Acute ethmoidal sinusitis, unspecified Acute frontal sinusitis, unspecified COPD exacerbation Foreign body in conjunctival sac, left eye, initial encounter Acute bacterial conjunctivitis Influenza A Acute bronchitis Back pain Limb weakness Asthma Anemia Arthritis Home Medications ?Medication ?Instructions ?Recorded ?Last Taken ?Type albuterol sulfate 90 mcg/actuation 2 puff inhalation Q4H PRN PRN 03/13/15 Unknown History aerosol inhaler Shortness Of Breath fluoxetine 20 mg capsule 60 mg PO QHS MENTAL HEALTH 12/13/15 09/01/24 History peg 140-[id number]-nbrehckt 1 1 drp OP 4X/DAY DRY EYES 11/13/17 03/19/24 History %-0.2 %-0.2 % eye drops (Dry Eye Relief) leflunomide 20 mg tablet (Arava) 20 mg PO QHS RA 03/22/18 09/01/24 History amlodipine 5 mg tablet 7.5 mg PO DAILY BP 08/15/22 03/02/25 06:30 History mometasone 50 mcg/actuation nasal 2 spray intranasal DAILY ALLERGIES 08/15/22 09/01/24 History spray abatacept 50 mg/0.4 mL 50 mg subcut QMONTH RA 12/17/22 02/18/25 History subcutaneous syringe (Orencia) acetaminophen 500 mg tablet 1,000 mg PO Q6H PRN fever or pain 11/15/23 09/01/24 History atorvastatin 80 mg tablet 80 mg PO QHS CHOLESTEROL 11/15/23 09/01/24 History meclizine 25 mg tablet 25 mg PO QHS PRN PRN dizziness 03/17/24 03/02/25 06:30 History bupropion HCl (smoking deter) 150 150 mg PO QHS DEPRESSION 09/02/24 09/01/24 History mg tablet,12 hr sustained-release(smoking deterrent) cholecalciferol (vitamin D3) 1,250 1,250 mcg PO Q14D REPLACEMENT 10/24/24 Unknown History mcg (50,000 unit) capsule furosemide 20 mg tablet 20 mg PO DAILY WATER PILL 10/24/24 Unknown History alprazolam 1 mg tablet 1 mg PO TID ANXIETY 30 days #90 12/02/24 Unknown Rx tabs diphenoxylate-atropine 2.5 1 tab PO TID PRN diarrhea #90 tabs 02/02/25 Unknown Rx mg-0.025 mg tablet (Lomotil) tramadol 50 mg tablet 50 mg PO Q6H PRN PRN pain 02/24/25 Unknown History prochlorperazine maleate 10 mg 10 mg PO TID PRN nausea and 03/16/25 Unknown Rx tablet (Compazine) vomiting #30 tabs apixaban 5 mg tablet (Eliquis) 5 mg PO BID HX DVT, CAROTID ARTERY 03/27/25 Unknown History DISEASE primidone 50 mg tablet 100 mg PO QHS TREMORS 03/27/25 Unknown History Allergy/AdvReac Type Severity Reaction Status Date / Time doxycycline calcium (From Allergy Anaphylaxis Verified 03/27/25 14:59 Vibramycin) doxycycline hyclate (From Allergy Anaphylaxis Verified 03/27/25 14:59 Vibramycin) doxycycline monohydrate Allergy Anaphylaxis Verified 03/27/25 14:59 (From Vibramycin) NSAIDS (Non-Steroidal Allergy Anaphylaxis Verified 03/27/25 14:59 Anti-Inflamma duloxetine (From Cymbalta) AdvReac HEADACHE Verified 03/27/25 14:59 AND UPSET STOMACH hydrocodone bitartrate (From AdvReac STOMACH Verified 03/27/25 14:59 Vicodin) UPSET hydromorphone HCl (From AdvReac Vomiting Verified 03/27/25 14:59 Dilaudid) morphine AdvReac Vomiting Verified 03/27/25 14:59 Family History Mother Asthma Hypertension Kidney disease Father Asthma Myocardial infarction Daughter Asthma Diabetes Hypertension Sister Asthma Hypertension Surgical History History of left hip replacement History of total right knee replacement (TKR) S/P total knee arthroplasty Hx of esophagogastroduodenoscopy History of cardiac catheterization S/P repair of paraesophageal hernia History of Vanessa fundoplication H/O adenoidectomy History of tonsillectomy H/O hernia repair History of total left knee replacement Hx of section H/O shoulder surgery Social History household members: family housing: house Smoking Status: Former smoker quit date: 07/29/13 alcohol intake: never substance use type: does not use ROS ROS ED Constitutional Constitutional ED: Denies chills or fever(s) Cardiovascular Cardiovascular: Denies chest pain Respiratory/Chest Respiratory/Chest: Denies cough or dyspnea Gastrointestinal Gastrointestinal: Reports abdominal pain, diarrhea, nausea and vomiting Musculoskeletal Musculoskeletal: Denies arthralgias or myalgias Neurologic Neurologic: Reports weakness Psychiatric Psychiatric: Reports anxiety Hematologic/Lymphatic Hematologic/Lymphatic: Denies easy bleeding or easy bruising EXAM Physical Exam Const Vital Signs: 03/27/25 14:57 03/27/25 16:57 Temperature 98.3 F 97.8 F Temperature Source Oral Oral Pulse Rate 80 74 Respiratory Rate 16 17 Blood Pressure 190/82 H 137/83 H Blood Pressure Mean 118 101 Pulse Ox 100 95 Oxygen Delivery Method Room Air Room Air Positive well nourished and well developed Constitutional Narrative: Uncomfortable appearing secondary to abdominal pain General Appearance ED: well developed; Negative for pallor HEENT Reports dry mucous membranes Mouth ED: Yes dry mucous membranes Mouth: dry mucous membranes Neck supple and no JVD Resp normal respiratory effort and clear to auscultation bilaterally Cardio regular rate and regular rhythm GI Inspection: Negative for abdominal distention Auscultation: hypoactive bowel sounds Palpation: soft and tender epigastric and RUQ; Negative for guarding or rigid Back/Spine no CVA tenderness Extremity full ROM General Extremety ED: Negative for edema General Extremity: Negative for edema Neuro Sensorium / Orientation: alert, oriented to person, oriented to place and oriented to time Motor Exam: general weakness Psych mental status grossly normal and thought process normal Skin no wounds General Skin Exam: Negative for jaundice or pallor MDM MDM MDM Narrative Medical decision making narrative: Patient has chronic abdominal pain and diarrhea but is presenting with significantly worsening right upper quadrant abdominal pain as well as nausea and vomiting. Differential includes pancreatitis, cholecystitis, biliary colic, colitis, bowel obstruction, diverticulitis. Patient given IV morphine and Zofran. She initially is hypertensive but I suspect this is more pain related. Will obtain EKG to ensure this is not referred cardiac symptoms however lower clinical suspicion of this. Patient is given IV fluids. On repeat evaluation she does feel improved but does continue to have pain in her right upper abdomen. No vomiting in the emergency room. She has pancytopenia but these appear near her baseline. She states that she has had low white blood cell count since having radiation treatment/her rectal cancer. CMP largely normal. Normal lipase. Urinalysis not consistent with infection. CT abdomen pelvis does show diverticulitis and/or proctitis involving the distal small colon of the proximal rectum. Is possible this could be more of a proctitis associate with radiation. However given the severity of her pain, her immunocompromise state (on monthly injections of abatacept for RA) and CT findings we will start IV antibiotics and admit to ensure she tolerates treatment before transitioning to oral antibiotics. Patient feels more comfortable with this plan. Case discussed with hospitalist, Dr. Alva for admission History & Record Review Additional record(s) reviewed:: Prior outpatient record (See HPI- GI note) Lab Data Attestation: I reviewed the patient's lab results. Labs: Laboratory Results - last 24 hr 03/27/25 03/27/25 03/27/25 16:27 16:30 16:55 WBC 3.3 L RBC 3.66 L Hgb 10.5 L Hct 36.0 L MCV 98.4 MCH 28.7 MCHC 29.2 L RDW Std Deviation 69.2 H RDW Coeff of Pepe 23.9 H Plt Count 110 L MPV 12.8 H Immature Gran % (Auto) 0.300 Neut % (Auto) 70.5 H Lymph % (Auto) 11.9 L Brooks % (Auto) 13.4 H Eos % (Auto) 2.7 Baso % (Auto) 1.2 H Absolute Neuts (auto) 2.3 Absolute Lymphs (auto) 0.39 L Nucleated RBC % 0 Differential Comment SCANNED RBC Morphology N CHROM Polychromasia RARE Anisocytosis 1+ Macrocytosis RARE Eran Cells RARE Sodium Cancelled 134 Potassium Cancelled 4.1 Chloride Cancelled 102 Carbon Dioxide Cancelled 22.2 Anion Gap Cancelled 10 BUN Cancelled 8 Creatinine Cancelled 0.61 L Estim Creat Clear Calc Cancelled 66.80 Est GFR (MDRD) Non-Af Cancelled 99 BUN/Creatinine Ratio Cancelled 12.9 Glucose Cancelled 83 Calcium Cancelled 8.8 Total Bilirubin Cancelled 0.26 Direct Bilirubin Cancelled 0.12 AST Cancelled 24 ALT Cancelled 10 Alkaline Phosphatase Cancelled 78 Total Protein Cancelled 6.4 Albumin Cancelled 3.6 Globulin Cancelled 2.7 Lipase Cancelled 23 Urine Color Straw Urine Clarity Clear Urine pH 6.5 Ur Specific [place] 1.010 Urine Protein Negative Urine Glucose (UA) Normal Urine Ketones Negative Urine Occult Blood Negative Urine Nitrite Negative Urine Bilirubin Negative Urine Urobilinogen Normal Ur Leukocyte Esterase Negative Urine RBC 0 SEEN Urine WBC 0-5 SEEN Ur Squamous Epith Cells 0-5 SEEN Urine Bacteria RARE Urine Mucus 0 SEEN Radiography Diagnostic Testing: Clinical Impression(s) from Imaging Studies Abdomen/Pelvis CT 03/27/25 17:07 IMPRESSION: Diverticulitis and/or proctitis involving distal sigmoid colon proximal rectum [facility] Rhythm Strip Rhythm Strip: Sinus Rhythm Rate: 71 Ectopy: PVC(s) EKG Initial EKG: Attestation: I personally reviewed and interpreted this EKG as follows: Interpretation: Sinus Rhythm Comments: Normal sinus rhythm at a rate of 71 bpm with PVCs Normal axis Normal intervals LVH with repolarization abnormality No significant change compared to prior EKG on 10/24/2024 Management Discussion w/another healthcare provider: Hospitalist Discharge Plan Dx/Rx/DC Orders Clinical Impression: Epigastric abdominal pain, Nausea and vomiting, Diverticulitis, Rheumatoid arthritis Disposition Disposition: Acute Care Hospital [facility] Discharge Date/Time: 03/27/25 19:24
[2025-03-27] MEDS: 0.9% Normal Saline (1000mL) 1,000 ML 999 ML IV (16:11)
[2025-03-27 16:36] LABS: Mucous, Urine 0 SEEN /hpf (<or=2+); Red Blood Cells-Urine 0 SEEN /hpf (0-5)
[2025-03-27 16:40] LABS: Color, Urine Straw (Yellow); Glucose, Dipstick Normal (Normal); Ketone-Dipstick Negative (Negative); Leukocyte Esterase-Dipstick Negative /ul (Negative); Nitrite-Dipstick Negative (Negative); Occult Blood-Urine Negative /ul (Negative); Protein-Dipstick Negative (Negative); Specific Gravity, Urine 1.010 (1.002-1.030); Urine Bilirubin Dipstick Negative (Negative)
[2025-03-27 16:41] LABS: Hematocrit 36.0 % (37-47); Hemoglobin 10.5 g/dL (12.0-15.0); Immature Granulocytes Count 0.010 X10^3/uL (0.0-0.0); Mean Corp Hgb Conc 29.2 g/dL (32-36); Mean Corpuscular Volume 98.4 fL (81-99); Mean Platelet Vol. 12.8 fl (6.2-12.0); NRBC Flagged by Analyzer 0 % (0-5); POSITIVE DIFFERENTIAL YES; POSITIVE MORPHOLOGY YES; Platelet Count 110 K/mm3 (150-450); RBC Distribution Width CV 23.9 % (11.6-14.6); RBC Distribution Width SD 69.2 fl (35.1-43.9); Red Blood Count 3.66 M/mm3 (4.2-5.4); White Blood Count 3.3 K/mm3 (4.4-11.0)
[2025-03-27 16:47] LABS: Differential Indicated SCAN CRITERIA MET
[2025-03-27 16:53] LABS: Squamous Epithelial Cells - UA 0-5 SEEN /hpf (5-10)
[2025-03-27 16:57] VITALS: BP 137/83; PULSE 74; RESP 17; TEMP 36.6; O2SAT 95
[2025-03-27 17:04] LABS: Differential Comment SCANNED; Red Cell Morphology N CHROM NORMAL (NORM C&C)
[2025-03-27 17:05] LABS: Anisocytosis 1+; Burr Cells RARE; Polychromasia RARE
[2025-03-27 17:06] LABS: Macrocytosis RARE
--- NOTE | 2025-03-27 17:07 | CT_ITS ---
PROCEDURE: ABDOMEN/PELVIS W IV CONT ONLY 03/27/2025 REASON FOR EXAM: RIGHT SIDED ABD PAIN TECHNIQUE: Procedure Code: CTABD Modality: CT Procedure: ABDOMEN/PELVIS W IV CONT ONLY Coronal and Sagittal reconstruction series were provided. CONTRAST: ISOVUE 370 VOLUME: 99 mL One or more dose reduction techniques were used (e.g., Automated exposure control, adjustment of the mA and/or kV according to patient size, use of iterative reconstruction technique. RADIATION DOSE SUMMARY: CTDlvol: 9.97 AND 15.72 mGy DLP: 833.66 mGycm COMPARISON: OCTOBER 24, 2024 FINDINGS: Lung bases: Pleural thickening/scarring right base, stable. Lung bases otherwise clear Liver: Unremarkable. Gallbladder: Unremarkable. Spleen: Normal. Pancreas: Within normal limits Adrenals: Unremarkable normal Kidneys: Normal Bladder: Normal Reproductive Organs: Unremarkable Bowel: Distal sigmoid colon and rectum wall thickening in pericolonic fat stranding suggesting diverticulitis, proctitis or other similar or related process Appendix: Not identified. No inflammatory process in the right lower quadrant. Lymph nodes: Adenopathy by CT size criteria. Vasculature: Some scattered and some confluent calcific atherosclerotic abdominal aortic plaque Peritoneum / Retroperitoneum: No free fluid. No free air. Bones: Left hip arthroplasty. No aggressive process CT/Abdomen/Pelvis W IV Cont ONLY IMPRESSION: Diverticulitis and/or proctitis involving distal sigmoid colon proximal rectum Reading [facility]
[2025-03-27 17:56] LABS: AST(SGOT) 24 U/L (<=31); Alanine Aminotransfer ALT/SGPT 10 U/L (<=34); Albumin, Serum 3.6 g/dL (3.4-4.8); Alkaline Phosphatase 78 U/L (35-104); Anion Gap 10 (5-15); BUN 8 mg/dL (4-19); BUN/Creat Ratio 12.9 RATIO (10-20); Bilirubin, Direct 0.12 mg/dL (0.00-0.30); Calcium,Total 8.8 mg/dL (7.6-11.0); Carbon Dioxide 22.2 mmol/L (21.0-32.0); Chloride 102 mmol/L (98-108); Estimated Creatinine Clearance 66.80 ml/min (50-250); Globulin 2.7 g/dL (2.2-4.2); Glucose 83 mg/dL (70-99); Lipase 23 U/L (13-75); Potassium 4.1 mmol/L (3.3-5.1)
--- NOTE | 2025-03-27 18:04 | CM.ED ---
Social Work Date of referral: 03/27/25 Reason for referral: Advanced Care Directives (ACD's) not on file. Patient provided consent to social work visit. Rag Shredder requested patient to bring in copy of ACD's which patient agreed to do. Michelle Alvares, EXERCISE EQUIPMENT SPECIALIST, BOWLING BALL PATCHER.
[2025-03-27] MEDS: metroNIDAZOLE 500 MG/100 ML BAG 100 MG IV (18:55)
--- NOTE | 2025-03-27 18:57 | PCM.HP.STD ---
[facility] - General General Date of Admission: 03/27/25 Date of Service: 03/27/25 Chief Complaint: Abdominal pain mainly right upper quadrant, diarrhea, dysphagia/multiple complaints, acute on chronic. HPI Narrative DEWEY HORTA, is a 64 F with multiple issues including anal cancer completed chemoradiation in September/October 2024 in remission, suspicion of chronic pancreatic insufficiency/Crohn's disease came to ED with worsening right-sided abdominal pain with radiation to right upper back, nausea, vomiting and diarrhea worse for last 2 days. She has all this issues for 2 to 3 months and follows in the GI office, recently saw Michellepapo Bkaer on 03/16. She states whenever she tries to eat she throws up right back. She feels food not going through at the neck/upper chest but passes well through lower chest and stomach. She had hiatus hernia/Vanessa's fundoplication surgery in 2019. Michelle Baekr did noninvasive workup for Crohn's disease and pancreatic insufficiency but were negative and her Crohn's disease and chronic pancreatic insufficiency did not get better with budesonide and Creon respectively. She also had a nondiagnostic colonoscopy without definitive findings of Crohn's disease. She has been vomiting about 4-5 times and has not eaten anything today. She feels dehydrated. Her bowel movement frequency is about 4-5 times per day in the last 2 days, liquid to semisolid, stool mixed with watery without blood or mucus. No fever or chills. In ED, patient had CT abdomen and pelvis with IV contrast which shows distal sigmoid colon rectal wall thickening in pericolonic fat additional history of diverticulitis/proctitis. Patient had anal/rectal chemoradiation [facility] Medical History Pancreatic insufficiency Crohn disease Cancer Walker as ambulation aid DVT (deep venous thrombosis) Gastric reflux 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 Mass of anus Perirectal abscess History of Crohn's disease Psoriatic arthritis Psoriasis Internal derangement of right knee Wears glasses Post-menopausal Depression Anxiety Ambulates with cane Injury of back Difficulty swallowing History of IBS History of hiatal hernia Former smoker Shortness of breath on exertion Chronic cough History of echocardiogram History of stress test Hypertension Cardiology follow-up encounter History of CHF (congestive heart failure) History of irregular heartbeat Acute pharyngitis, unspecified URI (upper respiratory infection) Contact with or suspected exposure to other viral communicable disease History of partial replacement of left hip joint using bipolar prosthesis Vitamin D deficiency HLD (hyperlipidemia) Insomnia Dry eye Regular astigmatism, bilateral PVCs (premature ventricular contractions) Coronary artery stenosis Chronic diastolic CHF (congestive heart failure) Iron malabsorption Osteoarthritis Lumbar spondylosis Osteoporosis Congenital cataract Intermittent palpitations Nausea TIA (transient ischemic attack) Acute maxillary sinusitis, unspecified Acute ethmoidal sinusitis, unspecified Acute frontal sinusitis, unspecified COPD exacerbation Foreign body in conjunctival sac, left eye, initial encounter Acute bacterial conjunctivitis Influenza A Acute bronchitis Back pain Limb weakness Asthma Anemia Arthritis Home Medications ?Medication ?Instructions ?Recorded ?Last Taken ?Type albuterol sulfate 90 mcg/actuation 2 puff inhalation Q4H PRN PRN 03/13/15 Unknown History aerosol inhaler Shortness Of Breath fluoxetine 20 mg capsule 60 mg PO QHS MENTAL HEALTH 12/13/15 09/01/24 History peg [id number] 1 1 drp OP 4X/DAY DRY EYES 11/13/17 03/19/24 History %-0.2 %-0.2 % eye drops (Dry Eye Relief) leflunomide 20 mg tablet (Arava) 20 mg PO QHS RA 03/22/18 09/01/24 History amlodipine 5 mg tablet 7.5 mg PO DAILY BP 08/15/22 03/02/25 06:30 History mometasone 50 mcg/actuation nasal 2 spray intranasal DAILY ALLERGIES 08/15/22 09/01/24 History spray abatacept 50 mg/0.4 mL 50 mg subcut QMONTH RA 12/17/22 02/18/25 History subcutaneous syringe (Orencia) acetaminophen 500 mg tablet 1,000 mg PO Q6H PRN fever or pain 11/15/23 09/01/24 History atorvastatin 80 mg tablet 80 mg PO QHS CHOLESTEROL 11/15/23 09/01/24 History meclizine 25 mg tablet 25 mg PO QHS PRN PRN dizziness 03/17/24 03/02/25 06:30 History bupropion HCl (smoking deter) 150 150 mg PO QHS DEPRESSION 09/02/24 09/01/24 History mg tablet,12 hr sustained-release(smoking deterrent) cholecalciferol (vitamin D3) 1,250 1,250 mcg PO Q14D REPLACEMENT 03/29/25 Unknown History mcg (50,000 unit) capsule furosemide 20 mg tablet 20 mg PO DAILY WATER PILL 10/24/24 Unknown History alprazolam 1 mg tablet 1 mg PO TID ANXIETY 30 days #90 12/02/24 Unknown Rx tabs diphenoxylate-atropine 2.5 1 tab PO TID PRN diarrhea #90 tabs 02/02/25 Unknown Rx mg-0.025 mg tablet (Lomotil) tramadol 50 mg tablet 50 mg PO Q6H PRN PRN pain 02/24/25 Unknown History prochlorperazine maleate 10 mg 10 mg PO TID PRN nausea and 03/16/25 Unknown Rx tablet (Compazine) vomiting #30 tabs apixaban 5 mg tablet (Eliquis) 5 mg PO BID HX DVT, CAROTID ARTERY 03/27/25 Unknown History DISEASE primidone 50 mg tablet 100 mg PO QHS TREMORS 03/27/25 Unknown History Allergy/AdvReac Type Severity Reaction Status Date / Time doxycycline calcium (From Allergy Anaphylaxis Verified 03/27/25 14:59 Vibramycin) doxycycline hyclate (From Allergy Anaphylaxis Verified 03/27/25 14:59 Vibramycin) doxycycline monohydrate Allergy Anaphylaxis Verified 03/27/25 14:59 (From Vibramycin) NSAIDS (Non-Steroidal Allergy Anaphylaxis Verified 03/27/25 14:59 Anti-Inflamma duloxetine (From Cymbalta) AdvReac HEADACHE Verified 03/27/25 14:59 AND UPSET STOMACH hydrocodone bitartrate (From AdvReac STOMACH Verified 03/27/25 14:59 Vicodin) UPSET hydromorphone HCl (From AdvReac Vomiting Verified 03/27/25 14:59 Dilaudid) morphine AdvReac Vomiting Verified 03/27/25 14:59 Family History Mother Asthma Hypertension Kidney disease Father Asthma Myocardial infarction Daughter Asthma Diabetes Hypertension Sister Asthma Hypertension Surgical History History of left hip replacement History of total right knee replacement (TKR) S/P total knee arthroplasty Hx of esophagogastroduodenoscopy History of cardiac catheterization S/P repair of paraesophageal hernia History of Vanessa fundoplication H/O adenoidectomy History of tonsillectomy H/O hernia repair History of total left knee replacement Hx of section H/O shoulder surgery Social History household members: family housing: house Smoking Status: Former smoker quit date: 07/29/13 alcohol intake: never substance use type: does not use ROS ROS Narrative Constitutional: Reports chronic fatigue and weakness. No fever. HEENT: Reports systems reviewed and no addt'l complaints, except as documented Respiratory/Chest: No acute shortness of breath or respiratory distress or wheezing. CVS: No chest pain/shortness of breath. Gastrointestinal: No hematemesis or GI bleed. Rest as described in HPI Genitourinary: Denies burning urination or new urinary tract symptoms Musculoskeletal: Uses cane. Denies acute joint pain or limited range of motion. No acute injury Neurologic: Denies seizure-like symptoms. skin: No ulcer. No rash Endocrinology: Reports systems reviewed and no addt'l complaints, except as documented Hematologic/Lymphatic: Reports systems reviewed and no addt'l complaints, except as documented Rest 14 ROS are negative except as mentioned in HPI Vital Signs Vital Signs Vital Signs: 03/27/25 14:57 03/27/25 16:57 Temperature 98.3 F 97.8 F Temperature Source Oral Oral Pulse Rate 80 74 Respiratory Rate 16 17 Blood Pressure 190/82 H 137/83 H Blood Pressure Mean 118 101 Pulse Ox 100 95 Oxygen Delivery Method Room Air Room Air Weight Weight: 167 lb Body Mass Index (BMI) 30.5 Physical Exam Narrative General: Alert, Oriented x3, Cooperative HEENT: Atraumatic, PERRLA, EOMI, Normocephalic. Oral: Oral mucosa very dry. No Gingival or Mucosal Lesions/ Ulcerations Neck: Supple, No JVD, Negative Carotid Bruits Chest wall/Lungs: Right upper chest Mediport. Air entry diminished in bilateral lung bases. No crepitation/rhonchi Cardiovascular: Regular rate and rhythm, Normal S1,S2, No M/G/R Abdomen: Bowel Sounds Present, Soft, tenderness present in right upper quadrant/epigastric region. Non-Distended : No dysuria. No renal angle tenderness. No suprapubic tenderness. Extremities: No edema, Capillary Refill Less than 3 Seconds Skin: No rashes, No breakdown Musculoskeletal: No Tenderness to Palpation of Joints or Extremities Neurological: Cranial nerves II-XII grossly intact, DTR 2+/4. No acute focal neurological deficit. Psych/Mental Status: Normal Affect, Appropriate. Results Lab / Micro Data 03/27/25 16:27 03/27/25 16:55 Labs: Laboratory Results - last 24 hr 03/27/25 16:27: WBC 3.3 L, RBC 3.66 L, Hgb 10.5 L, Hct 36.0 L, MCV 98.4, MCH 28.7, MCHC 29.2 L, RDW Std Deviation 69.2 H, RDW Coeff of Pepe 23.9 H, Plt Count 110 L, MPV 12.8 H, Immature Gran % (Auto) 0.300, Neut % (Auto) 70.5 H, Lymph % (Auto) 11.9 L, [place] % (Auto) 13.4 H, Eos % (Auto) 2.7, Baso % (Auto) 1.2 H, Absolute Neuts (auto) 2.3, Absolute Lymphs (auto) 0.39 L, Nucleated RBC % 0, Differential Comment SCANNED, RBC Morphology N CHROM, Polychromasia RARE, Anisocytosis 1+, Macrocytosis RARE, Eran Cells RARE, Sodium Cancelled, Potassium Cancelled, Chloride Cancelled, Carbon Dioxide Cancelled, Anion Gap Cancelled, BUN Cancelled, Creatinine Cancelled, Estim Creat Clear Calc Cancelled, Est GFR (MDRD) Non-Af Cancelled, BUN/Creatinine Ratio Cancelled, Glucose Cancelled, Calcium Cancelled, Total Bilirubin Cancelled, Direct Bilirubin Cancelled, AST Cancelled, ALT Cancelled, Alkaline Phosphatase Cancelled, Total Protein Cancelled, Albumin Cancelled, Globulin Cancelled, Lipase Cancelled 03/27/25 16:30: Urine Color Straw, Urine Clarity Clear, Urine pH 6.5, Ur Specific [place] 1.010, Urine Protein Negative, Urine Glucose (UA) Normal, Urine Ketones Negative, Urine Occult Blood Negative, Urine Nitrite Negative, Urine Bilirubin Negative, Urine Urobilinogen Normal, Ur Leukocyte Esterase Negative, Urine RBC 0 SEEN, Urine WBC 0-5 SEEN, Ur Squamous Epith Cells 0-5 SEEN, Urine Bacteria RARE, Urine Mucus 0 SEEN 03/27/25 16:55: Sodium 134, Potassium 4.1, Chloride 102, Carbon Dioxide 22.2, Anion Gap 10, BUN 8, Creatinine 0.61 L, Estim Creat Clear Calc 66.80, Est GFR (MDRD) Non-Af 99, BUN/Creatinine Ratio 12.9, Glucose 83, Calcium 8.8, Total Bilirubin 0.26, Direct Bilirubin 0.12, AST 24, ALT 10, Alkaline Phosphatase 78, Total Protein 6.4, Albumin 3.6, Globulin 2.7, Lipase 23 Imaging Radiology Impression Abdomen/Pelvis CT 03/27/25 17:07 IMPRESSION: Diverticulitis and/or proctitis involving distal sigmoid colon proximal rectum Reading [facility] Assessment & Plan Assessment/Plan (1) Epigastric abdominal pain: (2) Nausea and vomiting: (3) Diverticulitis of sigmoid colon: PLAN: Plan This is a 64-year female being admitted for acute on chronic nausea vomiting abdominal pain and diarrhea 1. Sigmoid diverticulitis/proctitis: CT abdomen shows sigmoid wall and rectal wall thickening with pericolonic fat infiltration but she had chemoradiation for anal cancer and also right upper quadrant/epigastric pain is not accounted by the CT findings. Patient was given IV Cipro and Flagyl in ED. Started on IV ceftriaxone and Flagyl. Symptomatic management for nausea and vomiting. IV fluid for resuscitation. Clear liquid diet. GI consulted 2. Chronic diarrhea/abdominal pain possible chronic IBS and dysphagia: Patient follows in GI office with Dr. Pitts and Michelle Baker. She had random colonic biopsy, terminal ileum biopsy which were reported no pathologic diagnosis. Noninvasive workup for chronic pancreatic insufficiency and Crohn's disease was also negative and she did not respond with Creon and budesonide. Symptomatic management. Speech therapy evaluation. 3. Anal cancer status post chemoradiation in remission: Patient had flexible sigmoidoscopy with biopsy by Dr. Garcia in February 2025. It was negative for malignancy. Biopsy showed benign squamous mucosa with hyperkeratosis 4. Chronic psoriatic arthritis, Sjogren disease, lumbar spondylosis, osteoporosis: Patient uses cane for walking. PT and OT. Outpatient follow-up with bi specialist 5. Chronic HFpEF, CAD, hypertension and dyslipidemia: Currently patient does not have any chest pain or shortness of breath. Twelve-lead EKG done in the ED shows NSR 71 beats minute, occasional PVC, LVH with repolarization abnormality. QTc 452 ms. 6. Possible history of COPD: Former smoker quit in July 2013. DuoNeb as needed. Incentive spirometry. No acute issues of COPD exacerbation 7. Chronic normocytic normochromic anemia: H&H 10.5/36% on baseline. Her hemoglobin ranges from 9 to 10 g%. DVT prophylaxis, high risk: Lovenox 40 mg subcu daily. Bilateral SCDs. Living will/advanced directive/end of life care: Patient does have living will or advanced directive. She stated her daughter is power of collections rep for health. After discussion of benefits/risks procedures involved with full code, DNR CC arrest and DNR CC, the patient opted for full code. Patient does want artificial life support including intubation, tube feed, ventilator and/chest compression, central venous catheter, vasopressor and DC shock if needed Total time spent in [id number] encounter in discussion of advanced directive 17 minutes. Laboratory Results 03/27/25 16:27: WBC 3.3 L, RBC 3.66 L, Hgb 10.5 L, Hct 36.0 L, MCV 98.4, MCH 28.7, MCHC 29.2 L, RDW Std Deviation 69.2 H, RDW Coeff of Pepe 23.9 H, Plt Count 110 L, MPV 12.8 H, Immature Gran % (Auto) 0.300, Neut % (Auto) 70.5 H, Lymph % (Auto) 11.9 L, [place] % (Auto) 13.4 H, Eos % (Auto) 2.7, Baso % (Auto) 1.2 H, Absolute Neuts (auto) 2.3, Absolute Lymphs (auto) 0.39 L, Nucleated RBC % 0, Differential Comment SCANNED, RBC Morphology N CHROM, Polychromasia RARE, Anisocytosis 1+, Macrocytosis RARE, [place] Cells RARE, 03/27/25 16:30: Urine Color Straw, Urine Clarity Clear, Urine pH 6.5, Ur Specific [place] 1.010, Urine Protein Negative, Urine Glucose (UA) Normal, Urine Ketones Negative, Urine Occult Blood Negative, Urine Nitrite Negative, Urine Bilirubin Negative, Urine Urobilinogen Normal, Ur Leukocyte Esterase Negative, Urine RBC 0 SEEN, Urine WBC 0-5 SEEN, Ur Squamous Epith Cells 0-5 SEEN, Urine Bacteria RARE, Urine Mucus 0 SEEN 03/27/25 16:55: Sodium 134, Potassium 4.1, Chloride 102, Carbon Dioxide 22.2, Anion Gap 10, BUN 8, Creatinine 0.61 L, Estim Creat Clear Calc 66.80, Est GFR (MDRD) Non-Af 99, BUN/Creatinine Ratio 12.9, Glucose 83, Calcium 8.8, Total Bilirubin 0.26, Direct Bilirubin 0.12, AST 24, ALT 10, Alkaline Phosphatase 78, Total Protein 6.4, Albumin 3.6, Globulin 2.7, Lipase 23 Clinical Impression(s) from Imaging Studies Abdomen/Pelvis CT 03/27/25 17:07 IMPRESSION: Diverticulitis and/or proctitis involving distal sigmoid colon proximal rectum Reading [facility] Charges/Coding Visit Charges Inpatient E&M: 63036 Init Hosp L3 Procedures Hospitalists Procedures: 49506 Advncd Care Plan 30 Min
[2025-03-27 19:19] VITALS: BP 132/65; PULSE 72; RESP 17; TEMP 36.3; O2SAT 97
--- OUTSIDE RECORDS SUMMARY | 2025-03-27 19:19 | XMS RPT_ITS | CCD ---
Author Organization [facility] Care Team Providers Care Learning And Development Intern Name Role Phone IGNACIO NEWMAN, DR SELENE [...] DO Unavailable Kj Rowe MD Unavailable Ronit Rhaman DO Unavailable Selene Pierre MD Primary Care [...] [phone] Dr. Usama Sarmiento Attending Provider Corina CARBON PRINTER, CARBON PRINTER-C Julio Primary Care Provider [phone] Corina CARBON PRINTER, CARBON PRINTER-C Julio Referring Provider Eduardo BENOIT PA Kenya Mazariegos Attending Provider Briana CARBON PRINTER, CARBON PRINTER-C Jaci Mazariegos Attending Provider [phone] Corina RANGEL.TRACY, Julio Roberson Primary Care Provider Dr. Selene Pierre Primary Care Provider Dr. Selene Pierre Referring Provider Tony BENOIT, CY Sweeney Attending Provider Nancy BENOIT, PA Pablo Attending Provider [phone] Dr. Usama Sarmiento Attending Provider [phone] Corina TAPIA, CARBON PRINTER-C Julio Primary Care Provider Corina TAPIA, CARBON PRINTER-C Julio Referring Provider CY Reeves Attending Provider Briana TAPIA, CARBON PRINTER-C Jaci Mazariegos Attending Provider [phone] MD GIANNI CERVANTES Referring Provider MD GIANNI Valencia Other Provider Unavailable Dr. Isaac Nichols Attending Provider Dr. Andrez Pitts Attending Provider [phone] Dr. Andrez Pitts Other Provider [phone] Selene Pierre Primary Care Provider Dr. Selene Pierre Referring Provider Dr. Isaac Nichols Attending Provider Dr. Selene Pierre Referring Provider Corina TAPIA, CARBON PRINTER-C Julio Primary Care Provider Corina TAPIA, CARBON PRINTER-C Julio Referring Provider [phone] CY Mclain Attending Provider [phone] Dr. Usama Sarmiento Attending Provider [phone] Michael Rawls Attending Provider [phone] Corina TAPIA, CARBON PRINTER-C Julio Primary Care Provider [phone] Briana TAPIA, CARBON PRINTER-C Jaci Mazariegos Attending Provider Dr. Michael Rawls Admit Provider [phone] Michael Rawls Other Provider [phone] Michael Rawls Referring Provider [phone] Marti ROJAS, Ismael Guy (Rn)(Hist) Unavailable Unavailable Quin Nolan DO Unavailable Ronit Rahman DO Unavailable Corina PROCTORN.Julio MOLINA Primary Care Provider Selene Pierre MD Primary Care Provider Dr. Michael Rawls Attending Provider [phone] Corina TAPIA, CARBON PRINTER-C Julio Referring Provider [phone] Dr. Andrez Pitts Attending Provider [phone] Corina TAPIA, CARBON PRINTER-C Julio Primary Care Provider [phone] Ronit Rahman DO Unavailable Ronit Rahman DO Unavailable Corina TAPIA, CARBON PRINTER-C Julio Referring Provider Dr. Andrez Pitts Attending Provider [phone] Corina TAPIA, CARBON PRINTER-C Julio Primary Care Provider Dr. Michael Rawls Attending Provider [phone] Dr. Usama Sarmiento Attending Provider [phone] Corina RANGEL.Julio MOLINA Primary Care Provider Andrez Pitts DO Unavailable [phone] Selene Pierre MD Primary Care Provider [phone] JULIO ARRIAGA CNP Consulting Unavailable FREDI JONES [...] Rahman DO Unavailable Kenya Garcia MD Unavailable [phone] Toan MD, Daesung Unavailable Karen NEWMAN, Fredi D Unavailable Michel SAMUEL, Sarah Jamison Unavailable Raul Woody Unavailable Unavailabl e Karen NEWMAN, Fredi Unavailable [phone] Sabrina BENAVIDES, Josh Mcduffie Unavailable Doup RN, Roxanne Unavailable Unavailable Corina TAPIA-C, Julio Primary Care Provider [phone] Corina TAPIA-C, Julio Referring Provider Hong DO, [...] Provider Dr. Rigoberto Dow DO Emergency Provider Dr. Rigoberto Dow DO Attending Provider [phone] [...] Unavailable JULIO ARRIAGA Primary Care Unavailable Corina CARBON PRINTER-C, Julio Primary Care Provider [phone] Corina CARBON PRINTER-C, Julio Referring Provider Dr. Gaudencio Ambriz DO Attending Provider Alanis NEWMAN, Woo Emergency Provider Corina CARBON PRINTER-C, Julio Primary Care Provider Woo Thapa MD Attending Provider Juan José CARBON PRINTER-CMichelle Attending Provider Corina CARBON PRINTER-C, Julio Referring Provider Corina CARBON PRINTER-C, Julio Primary Care Provider [phone] Dr. Josh Bennett DO Attending Provider [phone] Josh Bennett DO Referring Provider Dr. Kenya Garcia MD Attending Provider Corina CARBON PRINTER-C, Julio Primary Care Provider Tyler NEWMAN, Dr. Muhammad Attending Provider Dr. Pawel Cason MD Emergency Provider Corina CARBON PRINTER-C, Julio Primary Care Provider Dr. Kenya Garcia [...] Referring Unavailable JULIO ARRIAGA Primary Care Unavailable JOHNREYAN DOWANDA Yaquelin Referring Unavailable JULIO ARRIAGA Primary [...] Primary Care Unavailable TOAN, DAESUNG Referring Unavailable JUILO ARRIAGA Primary Care Unavailable TOAN, DAESUNG Attending [...] Primary Care Unavailable RON, DELVIN Referring Unavailable JLUIO ARRIAGA Primary Care Unavailable ARIAS, [...] Unavailable JULIO ARRIAGA Primary Care Unavailable Corina CARBON PRINTER, Julio Primary Care Unavailable Woo Thapa Attending Unavailable Cason, Pawel Attending Unavailable Cason, Pawel Referring Unavailable Corina CARBON PRINTER, Julio Primary Care Unavailable Rigoberto Dow Attending Unavailable Corina CARBON PRINTER, Julio Primary Care Unavailable Juan JoséMichelle Attending Unavailable Juan José Michelle Referring Unavailable Corina CARBON PRINTER, Julio Primary Care Unavailable Corina CARBON PRINTER, Julio Primary Care Unavailable Gaudencio Ambriz Attending Unavailable Corina CARBON PRINTER, Julio Referring Unavailable Corina CARBON PRINTER, Julio Primary Care Unavailable Corina CARBON PRINTER, Julio Attending Unavailable Juan José, Michelle Attending Unavailable Corina CARBON PRINTER, Julio Primary Care Unavailable Juan José Michelle Referring Unavailable Kenya Garcia Attending Unavailable Kenya Garcia Admitting Unavailable Corina CARBON PRINTER, Julio Primary Care Unavailable Juan José Michelle Attending Unavailable Corina CARBON PRINTER, Julio Referring Unavailable Corina CARBON PRINTER, Julio Primary Care Unavailable Friend, Andrez Attending Unavailable Corina CARBON PRINTER, Julio Referring Unavailable Corina CARBON PRINTER, Julio Primary Care Unavailable Wanek, Kenya A Attending Unavailable Corina CARBON PRINTER, Julio Referring Unavailable Corina CARBON PRINTER, Julio Primary Care Unavailable Masci, Josh Attending Unavailable Masci, Josh Referring Unavailable Corina CARBON PRINTER, Julio Primary Care Unavailable Corina CARBON PRINTER, Julio Primary Care Unavailable Cason, Pawel Attending Unavailable Masci, Josh Referring Unavailable Masci, Josh Attending Unavailable Corina CARBON PRINTER, Julio Primary Care Unavailable Masci, Josh Referring Unavailable Masci, Josh Attending Unavailable Corina CARBON PRINTER, Julio Primary Care Unavailable Friend, Andrez Attending Unavailable Friend, Andrez Referring Unavailable Corina CARBON PRINTER, Julio Primary Care Unavailable Corina CARBON PRINTER, Julio Referring Unavailable Corina CARBON PRINTER, Julio Attending Unavailable Corina CARBON PRINTER, Julio Primary Care Unavailable Wanek, Kenya A Attending Unavailable Wanek, Kenya A Referring Unavailable Wanek, Kenya A Consulting Unavailable Corina CARBON PRINTER, Julio Primary Care Unavailable Corina CARBON PRINTER, Julio Primary Care Unavailable Michelle Baker Attending Unavailable Corina CARBON PRINTER, Julio Referring Unavailable Wanek, Kenya A Attending Unavailable Corina CARBON PRINTER, Julio Primary Care Unavailable Corina CARBON PRINTER, Julio Referring Unavailable Wanek, Kenya A Attending Unavailable Wanek, Kenya A Referring Unavailable Corina CARBON PRINTER, Julio Primary Care Unavailable Friend, Andrez Attending Unavailable Corina CARBON PRINTER, Julio Referring Unavailable Corina CARBON PRINTER, Julio Primary Care Unavailable Gaudencio Ambriz Attending Unavailable Corina CARBON PRINTER, Julio Primary Care Unavailable Corina CARBON PRINTER, Julio Primary Care Unavailable Michelle Baker Attending Unavailable Corina CARBON PRINTER, Julio Referring Unavailable Wanek, Kenya A Attending Unavailable Wanek, Kenya A Consulting Unavailable Corina CARBON PRINTER, Julio Primary Care Unavailable Wanek, Kenya A Admitting Unavailable Wanek, Kenya A Consulting Unavailable Wanek, Kenya A Attending Unavailable Corina CARBON PRINTER, Julio Primary Care Unavailable Lincoln Richards Attending Unavailable Masci, Josh Referring Unavailable Corina CARBON PRINTER, Julio Primary Care Unavailable FriendAndrez Attending Unavailable Corina CARBON PRINTER, Julio Primary Care Unavailable Corina CARBON PRINTER, Julio Referring Unavailable Corina CARBON PRINTER, Julio Referring Unavailable Corina CARBON PRINTER, Julio Primary Care Unavailable Friend, Andrez Attending Unavailable Allergies Allergy Classification Reported Allergen(s) Allergy Type Date of Onset Reaction(s) Facility Acetaminophen / HYDROcodone (1 source) Acetaminophen / HYDROcodone Drug Allergy 4 Vomiting [facility] Doxycycline (1 source) Doxycycline Drug Allergy 5 Anaphylaxis [facility] DULoxetine (1 source) DULoxetine Drug Allergy 4 Intolerance [facility] Opioid Agonists (2 sources) HYDROmorphone Drug Allergy 4 Vomiting [facility] (20 sources) Acetaminophen / HYDROcodone; Translations: [acetaminophen-hy drocodone] Drug Allergy 5 Vomiting [facility] (4 sources) Doxycycline; Translations: [doxycycline] Drug Allergy ORAL SWELLING, ITCHING [facility] (4 sources) HYDROmorphone; Translations: [hydromorphone] Drug Allergy NAUSEA AND VOMITING [facility] (4 sources) Naproxen; Translations: [naproxen] Drug Allergy ANAPHYLAXIS [facility] (4 sources) misc non-codified allergy 1 Drug allergy [facility] Comment on above: horse serum (20 sources) Doxycycline; Translations: [DOXYCYCLINE CALCIUM] Drug Allergy 5 Anaphylaxis [facility] Work Phone: (20 sources) DULoxetine; Translations: [DULOXETINE] Drug Allergy 5 Intolerance [facility] (20 sources) HYDROmorphone; Translations: [HYDROMORPHONE (BULK)] Drug Allergy 2 Vomiting [facility] (20 sources) Morphine; Translations: [MORPHINE] Drug Allergy 6 Vomiting [facility] (20 sources) Non-steroidal anti-inflammatory agent; Translations: [NSAIDS (NON-STEROIDAL ANTI-INFLAMMATORY DRUG)] Drug Allergy 5 Anaphylaxis [facility] Work Phone: (20 sources) horse serum [Other] Propensity to adverse reactions 5 [facility] Work Phone: (20 sources) Non-steroidal anti-inflammatory agent Drug Allergy 5 Anaphylaxis [facility] Work Phone: (20 sources) Doxycycline; Translations: [doxycycline hyclate] Drug Allergy 3 Anaphylaxis [facility] (20 sources) Doxycycline; Translations: [doxycycline monohydrate] Drug Allergy 3 Anaphylaxis [facility] (20 sources) HYDROcodone; Translations: [hydrocodone bitartrate] Drug Allergy 3 STOMACH UPSET [facility] (20 sources) HYDROmorphone; Translations: [hydromorphone HCl] Drug Allergy 3 Vomiting [facility] (20 sources) Nonsteroidal Anti-inflammatory Compounds Allergy to substance 3 Anaphylaxis [facility] (20 sources) Horse/Equine Containing Products; Translations: [HORSE/EQUINE CONTAINING PRODUCTS] Drug Allergy 4 Swelling [facility] (1 source) Acetaminophen / HYDROcodone Drug Allergy [facility] (1 source) celecoxib Drug Allergy [facility] (1 source) Doxycycline Drug Allergy [facility] (1 source) DULoxetine Drug Allergy [facility] (1 source) HYDROmorphone Drug Allergy [facility] (1 source) Morphine Drug Allergy [facility] (1 source) NSAID Drug allergy (disorder) [facility] (3 sources) Acetaminophen / HYDROcodone; Translations: [HYDROCODONE-ACET AMINOPHEN] Drug Allergy 4 [facility] Other [facility] (1 source) Doxycycline Drug Allergy 5 [facility] (1 source) DULoxetine Drug Allergy 5 [facility] (1 source) Morphine Drug Allergy 5 [facility] (1 source) NSAIDs Drug allergy (disorder) 5 [facility] Medications Current Medications Medication Drug [...] Active Comment on above: Inject intravenously . [id number] 200 actuat albuterol 0.09 mg/actuat metered dose [...] Start: 10-24-2024 take 1 capsule by mo [facility] once daily Cholecalciferol (Vitamin D3) 1,250 mcg [...] on above: Take 1 capsule by mo [facility] one time a week. Take 1 capsule by mo [facility] every other week. clindamycin 300 mg [...] Comment on above: Take 3 capsules by [facility] once daily. furosemide 20 mg [...] into the eye(s) four times daily Peg 827-Gallrbiliwbe-Gegyhe in (Dry Eye Relief) 15 ML drops [...] on above: Take 1 capsule by mo [facility] twice daily for 180 days. Take 1 capsule by mo [facility] twice daily for 90 days. prochlorperazine [...] part of trunk Start: 08-29-2021 End: 09-05-2021 [place] 325- 5 mg oral tablet Dose = [...] 22, 2017 1:05am Acute sinusitis, unspecified amylase 885414 unt / lipase 42429 unt / protease 257604 unt delayed release oral capsule (20 sources) Start: 09-25-2023 End: 02-02-2025 Mzpipr-Kjsyswhy-Gstxbzx (Cre on) 36,000-114,000- 180,000 unit capsule,delayed release(DR/EC) Discontinued 0 PO .COMPLEX 300 11 January 25, 2025 4:25pm February 02, 2025 11:29am take 1-2 with snacks and 2-3 with meals End: 03-19-2025 take 1-3 capsules by mouth at bedtime zwyfyo-oxwxdqcv-wxhrqqv (CREON 36) 36,000-114,000- 180,000 unit delayed release [...] on above: Take 1 capsule by mo [facility] once daily. budesonide 3 mg delayed release [...] by mouth every four hours as needed ylowpgitdzRGHWA-csnunw-rburaqeod (BMX 1: 1:1) 1:1:1 liqd Indications: Stomatitis [...] Ergocalciferol (Vitamin D2) 50,000 UNIT capsule Discontinued 02599 U PO MORALEZ November 13, 2017 12:00am [...] Comment on above: Take 1 tablet by [facility] every 6 hours as needed. [...] Comment on above: Take 1 capsule by [facility] once daily. 2 ml ondansetron 2 [...] by mouth once daily. 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0 % [facility] Hematocrit (Bld) [Volume fraction] 37.0 % 36.0 - 46.0 % [facility] Hemoglobin (Bld) [Mass/Vol] 11.6 g/dL 11.5 - 15.5 g/dL [facility] Immature granulocytes (Bld) [#/Vol] [facility] Immature granulocytes/100 WBC (Bld) 0.4 % [facility] Interpretation and review of laboratory results Abnormal [facility] Lymphocytes (Bld) [#/Vol] 0.45 10*3/uL Low [facility] Lymphocytes/100 WBC (Bld) 9.5 % [facility] MCH (RBC) [Entitic mass] 27.8 pg 26.0 - 34.0 pg [facility] MCHC (RBC) [Mass/Vol] 31.4 g/dL 30.5 - 36.0 g/dL [facility] MCV (RBC) [Entitic vol] 88.7 fL 80.0 - 100.0 fL [facility] Monocytes (Bld) [#/Vol] 0.53 10*3/uL [facility] Monocytes/100 WBC (Bld) 11.1 % [facility] Neutrophils (Bld) [#/Vol] 3.52 10*3/uL [facility] Neutrophils/100 WBC (Bld) 73.9 % [facility] Nucleated RBC (Bld) [#/Vol] [facility] Nucleated RBC/100 WBC (Bld) [Ratio] 0.0 % /100 WBC [facility] Platelet mean volume (Bld) [Entitic vol] 10.3 fL 9.0 - 12.7 fL [facility] Platelets (Bld) [#/Vol] 210 10*3/uL [facility] RBC (Bld) [#/Vol] 4.17 10*6/uL 3.90 - 5.2 0 m/uL [facility] WBC (Bld) [#/Vol] 4.76 10*3/uL [facility] Basophils (Bld) [#/Vol] 0.05 10*3/uL Normal <0.11 [facility] Comment on above: Order Comment: Speci men Type: BLOOD SPECIMENOrdering Facility: [facility] Address: [address] [place] [address] Performed By: #### 5 7021-8 ####[facility] DORAL [id number] [place] [address] [place] Basophils/100 WBC (Bld) 1.1 % Normal C [facility] Comment on above: Order Comment: Speci men Type: BLOOD SPECIMENOrdering Facility: [facility] Address: [address] [place] [address] Performed By: #### 5 7021-8 ####[facility] [id number] [place] [address] [place] Differential cell count method Nom (Bld) Auto Normal [facility] Comment on above: Order Comment: Speci men Type: BLOOD SPECIMENOrdering Facility: [facility] Address: [address] [place] [address] Performed By: #### 5 7021-8 ####[facility] [id number] [place] [address] [place] Eosinophils (Bld) [#/Vol] 0.19 10*3/uL Normal <0.46 [facility] Comment on above: Order Comment: Speci men Type: BLOOD SPECIMENOrdering Facility: [facility] Address: [address] [place] [address] Performed By: #### 5 7021-8 ####[facility] NINA [id number] [place] [address] [place] Eosinophils/100 WBC (Bld) 4.0 % Normal [facility] Comment on above: Order Comment: Speci men Type: BLOOD SPECIMENOrdering Facility: [facility] Address: [address] [place] [address] Performed By: #### 5 7021-8 ####[facility] ALYSSAKEENENICOLE [id number] [place] [address] [place] Erythrocyte distribution width (RBC) [Ratio] 14.3 % Normal 11.5-15.0 [facility] Comment on above: Order Comment: Speci men Type: BLOOD SPECIMENOrdering Facility: [facility] Address: [address] [place] [address] Performed By: #### 5 7021-8 ####[facility]ITALZEVTIFFANIA [id number] [place] [address] [place] Hematocrit (Bld) [Volume fraction] 37.0 % Normal 36.0-46.0 [facility] Comment on above: Order Comment: Speci men Type: BLOOD SPECIMENOrdering Facility: [facility] Address: [address] [place] [address] Performed By: #### 5 7021-8 ####[facility]ITALNCLIA [id number] [place] [address] [place] Hemoglobin (Bld) [Mass/Vol] 11.6 g/dL Normal 11.5-15.5 [facility] Comment on above: Order Comment: Speci men Type: BLOOD SPECIMENOrdering Facility: [facility] Address: [address] [place] [address] Performed By: #### 5 7021-8 ####[facility]ENWNCLIA [id number] [place] [address] [place] Immature granulocytes (Bld) [#/Vol] 10*3/uL Normal <0.10 [facility] Comment on above: Order Comment: Speci men Type: BLOOD SPECIMENOrdering Facility: [facility] Address: [address] [place] [address] Performed By: #### 5 7021-8 ####[facility] DORAL [id number] [place] [address] [place] Immature granulocytes/100 WBC (Bld) 0.4 % Normal [facility] Comment on above: Order Comment: Speci men Type: BLOOD SPECIMENOrdering Facility: [facility] Address: [address] [place] [address] Performed By: #### 5 7021-8 ####[facility] DORAL [id number] [place] [address] [place] Lymphocytes (Bld) [#/Vol] 0.45 10*3/uL Low 1.00-4.00 [facility] Comment on above: Order Comment: Speci men Type: BLOOD SPECIMENOrdering Facility: [facility] Address: [address] [place] [address] Performed By: #### 5 7021-8 ####[facility] D[facility]AL [id number] [place] [address] [place] Lymphocytes/100 WBC (Bld) 9.5 % Normal [facility] Comment on above: Order Comment: Speci men Type: BLOOD SPECIMENOrdering Facility: [facility] Address: [address] [place] [address] Performed By: #### 5 7021-8 ####[facility] D[facility] [id number] [place] [address] [place] MCH (RBC) [Entitic mass] 27.8 pg Normal 26.0-34.0 [facility] Comment on above: Order Comment: Speci men Type: BLOOD SPECIMENOrdering Facility: [facility] Address: [address] [place] [address] Performed By: #### 5 7021-8 ####[facility] [id number] [place] [address] [place] MCHC (RBC) [Mass/Vol] 31.4 g/dL Normal 30.5-36.0 [facility] Comment on above: Order Comment: Speci men Type: BLOOD SPECIMENOrdering Facility: [facility] Address: [address] [place] [address] Performed By: #### 5 7021-8 ####[facility] [id number] [place] [address] [place] MCV (RBC) [Entitic vol] 88.7 fL Normal 80.0-100.0 C [facility] Comment on above: Order Comment: Speci men Type: BLOOD SPECIMENOrdering Facility: [facility] Address: [address] [place] [address] Performed By: #### 5 7021-8 ####[facility] [id number] [place] [address] [place] Monocytes (Bld) [#/Vol] 0.53 10*3/uL Normal <0.87 [facility] Comment on above: Order Comment: Speci men Type: BLOOD SPECIMENOrdering Facility: [facility] Address: [address] [place] [address] Performed By: #### 5 7021-8 ####[facility]ITALNCLI [id number] [address] [place] Monocytes/100 WBC (Bld) 11.1 % Normal C [facility] Comment on above: Order Comment: Speci men Type: BLOOD SPECIMENOrdering Facility: [facility] Address: [address] [place] [address] Performed By: #### 5 7021-8 ####[facility] ALYSSAWNCLIA [id number] [place] [address] [place] Neutrophils (Bld) [#/Vol] 3.52 10*3/uL Normal 1.45-7.50 [facility] Comment on above: Order Comment: Speci men Type: BLOOD SPECIMENOrdering Facility: [facility] Address: [address] [place] [address] Performed By: #### 5 7021-8 ####[facility]ITALNCLIA [id number] [place] [address] [place] Neutrophils/100 WBC (Bld) 73.9 % Normal [facility] Comment on above: Order Comment: Speci men Type: BLOOD SPECIMENOrdering Facility: [facility] Address: [address] [place] [address] Performed By: #### 5 7021-8 ####[facility]ITALNCLIA [id number] [place] [address] [place] Nucleated RBC (Bld) [#/Vol] 10*3/uL Normal <0.01 [facility] Comment on above: Order Comment: Speci men Type: BLOOD SPECIMENOrdering Facility: [facility] Address: [address] [place] [address] Performed By: #### 5 7021-8 ####[facility] MILLWNCLIA [id number] [place] [address] [place] Nucleated RBC/100 WBC (Bld) [Ratio] 0.0 /100 WBC Normal [facility] Comment on above: Order Comment: Speci men Type: BLOOD SPECIMENOrdering Facility: [facility] Address: [address] [place] [address] Performed By: #### 5 7021-8 ####[facility] HOSPITALLIA [id number] [place] [address] [place] Platelet mean volume (Bld) [Entitic vol] 10.3 fL Normal 9.0-12.7 [facility] Comment on above: Order Comment: Speci men Type: BLOOD SPECIMENOrdering Facility: [facility] Address: [address] [place] [address] Performed By: #### 5 7021-8 ####[facility] ALYSSAALEJANDRINALIA [id number] [place] [address] [place] Platelets (Bld) [#/Vol] 210 10*3/uL Normal 150-400 [facility] Comment on above: Order Comment: Speci men Type: BLOOD SPECIMENOrdering Facility: [facility] Address: [address] [place] [address] Performed By: #### 5 7021-8 ####[facility] HOSPITALZEVLIA [id number] [place] [address] [place] RBC (Bld) [#/Vol] 4.17 10*6/uL Normal 3.90-5.20 [facility] Comment on above: Order Comment: Speci men Type: BLOOD SPECIMENOrdering Facility: [facility] Address: [address] [place] [address] Performed By: #### 5 7021-8 ####[facility] ALYSSAKEENEZEVLIA [id number] [place] [address] [place] WBC (Bld) [#/Vol] 4.76 10*3/uL Normal 3.70-11.00 [facility] Comment on above: Order Comment: Speci men Type: BLOOD SPECIMENOrdering Facility: [facility] Address: [address] [place] [address] Performed By: #### 5 7021-8 ####[facility] HOSPITALNCLIA [id number] [place] [address] [place] CNOVSPon 03-19-2025 CNOVSP Normal [facility] CNPNon 03-19-2025 CNPN Normal [facility] Gastroenterology Visit Repor ton 03-16-2025 Gastroenterology Visit Report [facility] Gastroenterology [address] [place] [address] OFFICE VISIT Date of Service: 03/16/25 MR#: [id number] Acct: [id number] Name: MARIMAR WANG Rep #: [id number] : 1960 Provider: SINAI arriaza Age/Sex: 64/F Location: [facility] Status: Signed Intake Vital Signs 02/02/25 11:01 [...] FU Chief Complaint: follow-up of ongoing diarrhea Special Events Assistant Required: No Accompanied by: Self Is patient [...] [facility]HS MENTAL HEALTH 6 03/16/25 History peg 619-dyxwyqhlpbcu-ykfhcth n 1 1 drp OP 4X/DAY DRY [...] either comes up or runs back out. [facility] Medical History (Updated 03/16/25 [...] palpitations Nausea (more content not included)... Normal [facility] Flex Sigmoidoscopy Reporton 03-02-2025 Flex Sigmoidoscopy Report [facility] Medical Records Department [address] [place] [address] Flex Sigmoidoscopy Report MR#: [id number] Acct: [id number] Name: MARIMAR WANG Rep #: [id number] : 1960 64 From: Kenya Garcia MD PCP: Julio Arriaga NP-C Status:REG [facility] Patient Name: Marimar Wang Procedure Date: 03/02/2025 [...] normal. Biopsied. Procedure Code(s): --- Professional --- 45458, 52, Sigmoidoscopy, flexible; with biopsy, single or multiple Diagnosis Code(s): --- Professional --- Z85.048, Personal history of other malignant neoplasm of rectum, rectosigmoid junction, and anus CPT copyright 2021 [employer]. All rights reserved. The codes documented in this report are preliminary and upon optical worker review may be revised to meet current compliance requirements. Kenya Garcia MD 03/02/2025 10:43:59 AM This report has been signed electronically. Number of Addenda: 0 Note Initiated On: 03/02/2025 10:02 AM 03/02/25 104 Date Kenya Garcia MD Cosigner Signature: Date (if indicated) CC: SINAI Arriaga; Dr. Kenya Garcia MD Date Dictated: 03/02/25 1002 Date Transcribed: Pre Owned Sales Manager: SHILPA Pineda [facility] MR[facility]OP.[facility] Medical Records Department [address] [place] [address] Provation Physician Letter MR#: [id number] Acct: [id number] Name: MARIMAR WANG Rep #: [id number] : 1960 64 From: Kenya Garcia MD PCP: SINAI Arriola Status:REG [facility] 03/02/2025 Sinai Arriola Re : Flexible Sigmoidoscopy [...] MD Cosigner Signature: Date (if indicated) CC: CAR[employer]INTER-C Julio Arriaga; Dr. Kenya Garcia MD Date Dictated: 03/02/251001 Date Transcribed: Pre Owned Sales Manager: SW Signed [facility] MR/POSTOP.ANE 03-02-2025 MR/POSTOP.[facility] Medical Records Department [address] [place] [address] Anesthesia Postop Eval I 03/02/251044 MR#: [id number] Acct: [id number] Name: TIMMYJODIMalenaMARIMAR Rep #: [id number] : 1960 64 From: Quang Hagen CRNA PCP: SINAI Arriola Status:REG [facility] Y Race: C Location: [place] [address] Anesthesia: Postop Eval I Current Vital Signs Temperature: 97 F Pulse Rate: 78 Blood Pressure: 107/64 Respiratory Rate: 16 Pulse Ox: 96 Assessment Airway patent: Yes Spontaneous unlabored respirations: Yes nausea: No Vomiting: No Anesthesia Complication: No Fluid Hydration Crystalloid volume administer (ml): 300 Total IV fluid infused: 300 Progress Note Anesthesia document: Postop Eval 1 completed: Yes 03/02/251044 Date Quang Hagen EBD TEACHER Cosigner Signature: Date CC: Signed [facility] MR/YNZBEALI1no 03-02-2025 MR/POSTOPAN2 [facility] Medical Records Department [address] [place] [address] Anesthesia Postop Eval II 03/02/252015 MR#: [id number] Acct: [id number] Name: MARIMAR WANG Rep #: [id number] : 1960 64 From: Nikita Aguiar MD PCP: Julio Arriaga, [employer]INTER-C Status:DEP [facility] Y Race: C Location: [place] Anesthesia Postop Eval I Sum Postop Eval Completion status Anesthesia document: Postop Eval 1 completed: Yes Anesthesia Postop Eval I Summary Anesthesia Postop Eval I Summary: Anesthesia Postop Eval I: Assessment Summary Airway patent Yes 03/02/25 10:45 EBD TEACHER.TNES Spontaneous unlabored Yes 03/02/25 10:45 EBD TEACHER.TNES respirations Mental status nausea No 03/02/25 10:45 EBD TEACHER.TNES Vomiting No 03/02/25 10:45 EBD TEACHER.TNES Anesthesia Postop Eval I: Fluid Summary Crystalloid volume administer 300 03/02/25 10:45 EBD TEACHER.TNES (ml) Colloids volume administered ( ml) Blood Product volume administered (ml) Total IV fluid infused 300 03/02/25 10:45 EBD TEACHER.TNES Anesthesia Postop Eval I: Summary Notes Anesthesia Complication No 03/02/25 10:45 EBD TEACHER.TNES Anesthesia Complication Comment: Post-operative progress note Anesthesia: Postop Eval II Evaluation Mental status: Awake and Calm Pain Level: 1 nausea: No Vomiting: No Complications Anesthesia Complication: No 03/02/252015 Date [facility]ita Aguiar [facility] Signature: Date CC: Signed Normal [facility] Surgery Specimen Level Nubia 03-02-2025 Surgery Specimen Level IV Patient Age/Sex Location Account Attending Physician MARIMAR WANG 64/F EN [id number] Dr. Kenya Garcia MD Specimen: [id number] Received: 03/02/25 Status: SAMREEN pAaricio Num: [id number] Spec Type: COLON BX Subm Dr: Dr. [...] specimen is totally submitted in one cassette. CPT:96828 Patient Age/Sex Location Account Attending Physician MARIMAR WANG 64/F EN [id number] Dr. Kenya Garcia MD Signed (signature on file) Dr. Lizzie Coelho MD 03/05/25 1420 Normal [facility] Comment on above: Performed By: #### L 499.0042 #### [facility] Laboratory [facility] [address] [place], [place], [address] Emergency Department Summary on 02-27-2025 Emergency Department Summary [facility] Medical Records Department [address] [place] [address] Emergency Department Summary 02/27/25 MR#: [id number] Acct: [id number] Name: MARIMAR WANG Rep #: [id number] : 1960 64 From: Pawel Cason MD [...] QHS MENTAL HEALTH 6 09/01/24 History peg 844-zheskkhfkcaq-wuwmleo n 1 1 drp OP 4X/DAY DRY [...] mcg (50,000 (more content not included)... Normal [facility] MR/PAT.ANEon 02-24-2025 MR/PAT.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 Hx Hospitalization Yes: AUG 2024, ANAL CANCER [...] take am of surgery PONV 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 Female Yes 02/24/25 14:24 HX of Motion [...] 02/09/25 09:46 Respiratory Assessment 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: Respiratory Tract Infection Hx - 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 Hx Respiratory Tract Infection No 02/24/25 14:24 STOP Sleep Apnea STOP Sleep Apnea - 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: STOP Sleep Apnea - 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 Hx Hypertension Yes 02/24/25 14:24 Hx Sleep [...] Tobacco Use History 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 Tobacco Use Smoking Status Former smoker 02/24/25 14:24 Hx Tobacco Use No 02/24/25 14:24 Years Smoking Packs Smoked per Day Smoking Cessation Date was Yes - quit smoking within 15 02/24/25 14:24 within the last 15 years years Hx Smoking Cessation Date 12/27/13 02/24/25 14:24 Hx Smoking Cessation No 02/24/25 14:24 Counseling Hematologic Medial History 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 Specify any problems Hx of Preganancy in last 3 No 02/24/25 14:24 Months Nurse Filling Out Transfusion [facility] 02/24/25 14:24 Questions: Date: 02/24/25 02/24/25 14:24 Time: 14:37 02/24/25 14:24 Patient unable to answer at this time (ie. 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 Normal [facility] CNPNon 02-17-2025 CNPN Normal [facility] CNPNon 02-15-2025 CNPN Normal [facility] CNPNon 02-12-2025 CNPN Normal [facility] CNPNon 02-09-2025 CNPN Normal [facility] Surgery Visit Reporton 02-09 Surgery Visit Report [facility] [address] [place] [address] OFFICE VISIT Date of Service: 02/09/25 MR#: [id number] Acct: [id number] Name: MARIMAR WANG Rep #: [id number] : 1960 Provider: Dr. Kenya fuentes MD Age/Sex: 64/F Location: [facility] Status: Signed Intake Vital Signs 10/30/24 00:58 [...] QHS MENTAL HEALTH 6 02/09/25 History peg 288-oywwdllvwgjn-phodgbj n 1 1 drp OP 4X/DAY DRY [...] Q12H 10/24/24 02/09/25 History a dose pack ([facility] DVT-PE Treat 30D Start) cholecalciferol (vitamin D3) [...] you fallen in the past year?: No [facility] Medical History Squamous cell [...] bipolar pros (more content not included)... Normal [facility] Gastroenterology Visit Repor ton 02-02-2025 Gastroenterology Visit Report [facility] Gastroenterology [address] [place] [address] OFFICE VISIT Date of Service: 02/02/25 MR#: [id number] Acct: [id number] Name: MARIMAR WANG Rep #: [id number] : 1960 Provider: SINAI arriaza Age/Sex: 64/F Location: [facility] Status: Signed Intake Vital Signs 01/14/25 08:27 [...] QHS MENTAL HEALTH 6 02/02/25 History peg 822-zfssukryyjba-wybsbyu n 1 1 drp OP 4X/DAY DRY [...] bipolar pro (more content not included)... Normal [facility] CBC W Auto Differential pane l (Bld)on 02-01-2025 Basophils (Bld) [#/Vol] 0.05 10*3/uL [facility] Basophils/100 WBC (Bld) 1.1 % C [facility] Differential cell count method Nom (Bld) Auto [facility] Eosinophils (Bld) [#/Vol] 0.2 10*3/uL [facility] Eosinophils/100 WBC (Bld) 4.4 % [facility] Erythrocyte distribution width (RBC) [Ratio] 14.1 % 11.5 - 15.0 % [facility] Hematocrit (Bld) [Volume fraction] 34.2 % Low 36.0 - 46.0 % [facility] Hemoglobin (Bld) [Mass/Vol] 10.9 g/dL Low 11.5 - 15.5 g/dL [facility] Immature granulocytes (Bld) [#/Vol] [facility] Immature granulocytes/100 WBC (Bld) 0.4 % [facility] Interpretation and review of laboratory results Abnormal [facility] Lymphocytes (Bld) [#/Vol] 0.39 10*3/uL Low [facility] Lymphocytes/100 WBC (Bld) 8.6 % [facility] MCH (RBC) [Entitic mass] 29.2 pg 26.0 - 34.0 pg [facility] MCHC (RBC) [Mass/Vol] 31.9 g/dL 30.5 - 36.0 g/dL [facility] MCV (RBC) [Entitic vol] 91.7 fL 80.0 - 100.0 fL [facility] Monocytes (Bld) [#/Vol] 0.51 10*3/uL [facility] Monocytes/100 WBC (Bld) 11.2 % [facility] Neutrophils (Bld) [#/Vol] 3.39 10*3/uL [facility] Neutrophils/100 WBC (Bld) 74.3 % [facility] Nucleated RBC (Bld) [#/Vol] [facility] Nucleated RBC/100 WBC (Bld) [Ratio] 0 % /100 WBC [facility] Platelet mean volume (Bld) [Entitic vol] 10.4 fL 9.0 - 12.7 fL [facility] Platelets (Bld) [#/Vol] 202 10*3/uL [facility] RBC (Bld) [#/Vol] 3.73 10*6/uL Low 3.90 - 5.2 0 m/uL [facility] WBC (Bld) [#/Vol] 4.56 10*3/uL [facility] Basophils (Bld) [#/Vol] 0.05 10*3/uL Normal <0.11 [facility] Comment on above: Order Comment: Speci men Type: BLOOD SPECIMENOrdering Facility: [facility] Address: [address] [place] [address] Performed By: #### 5 7021-8 ####[facility]ITALA [id number] [place] [address] [place] Basophils/100 WBC (Bld) 1.1 % Normal [facility] Comment on above: Order Comment: Speci men Type: BLOOD SPECIMENOrdering Facility: [facility] Address: [address] [place] [address] Performed By: #### 5 7021-8 ####[facility]ITALA [id number] [place] [address] [place] Differential cell count method Nom (Bld) Auto Normal [facility] Comment on above: Order Comment: Speci men Type: BLOOD SPECIMENOrdering Facility: [facility] Address: [address] [place] [address] Performed By: #### 5 7021-8 ####[facility] HOSPITALNCLIA [id number] [place] [address] [place] Eosinophils (Bld) [#/Vol] 0.20 10*3/uL Normal <0.46 [facility] Comment on above: Order Comment: Speci men Type: BLOOD SPECIMENOrdering Facility: [facility] Address: [address] [place] [address] Performed By: #### 5 7021-8 ####[facility] HOSPITALKAREEMA [id number] [place] [address] [place] Eosinophils/100 WBC (Bld) 4.4 % Normal [facility] Comment on above: Order Comment: Speci men Type: BLOOD SPECIMENOrdering Facility: [facility] Address: [address] [place] [address] Performed By: #### 5 7021-8 ####[facility] HOSPITALZEVBLAKE [id number] [place] [address] [place] Erythrocyte distribution width (RBC) [Ratio] 14.1 % Normal 11.5-15.0 [facility] Comment on above: Order Comment: Speci men Type: BLOOD SPECIMENOrdering Facility: [facility] Address: [address] [place] [address] Performed By: #### 5 7021-8 ####[facility]ITALNCSEVI[facility] [id number] [place] [address] [place] Hematocrit (Bld) [Volume fraction] 34.2 % Low 36.0-46.0 [facility] Comment on above: Order Comment: Speci men Type: BLOOD SPECIMENOrdering Facility: [facility] Address: [address] [place] [address] Performed By: #### 5 7021-8 ####[facility] HOSPITALNCLIA [id number] [place] [address] [place] Hemoglobin (Bld) [Mass/Vol] 10.9 g/dL Low 11.5-15.5 [facility] Comment on above: Order Comment: Speci men Type: BLOOD SPECIMENOrdering Facility: [facility] Address: [address] [place] [address] Performed By: #### 5 7021-8 ####[facility] HOSPITALNCLIA [id number] [place] [address] [place] Immature granulocytes (Bld) [#/Vol] 10*3/uL Normal <0.10 [facility] Comment on above: Order Comment: Speci men Type: BLOOD SPECIMENOrdering Facility: [facility] Address: [address] [place] [address] Performed By: #### 5 7021-8 ####[facility]PITALNCSEVIER [facility]LEY [facility] [id number] [place] [address] [place] Immature granulocytes/100 WBC (Bld) 0.4 % Normal [facility] Comment on above: Order Comment: Speci men Type: BLOOD SPECIMENOrdering Facility: [facility] Address: [address] [place] [address] Performed By: #### 5 7021-8 ####[facility] DORAL [id number] [place] [address] [place] Lymphocytes (Bld) [#/Vol] 0.39 10*3/uL Low 1.00-4.00 [facility] Comment on above: Order Comment: Speci men Type: BLOOD SPECIMENOrdering Facility: [facility] Address: [address] [place] [address] Performed By: #### 5 7021-8 ####[facility] DORAL [id number] [address] [place] Lymphocytes/100 WBC (Bld) 8.6 % Normal [facility] Comment on above: Order Comment: Speci men Type: BLOOD SPECIMENOrdering Facility: [facility] Address: [address] [place] [address] Performed By: #### 5 7021-8 ####[facility] D[facility]AL [id number] [place] [address] [place] MCH (RBC) [Entitic mass] 29.2 pg Normal 26.0-34.0 [facility] Comment on above: Order Comment: Speci men Type: BLOOD SPECIMENOrdering Facility: [facility] Address: [address] [place] [address] Performed By: #### 5 7021-8 ####[facility] NABILNCLIA [id number] [place] [address] [place] MCHC (RBC) [Mass/Vol] 31.9 g/dL Normal 30.5-36.0 [facility] Comment on above: Order Comment: Speci men Type: BLOOD SPECIMENOrdering Facility: [facility] Address: [address] [place] [address] Performed By: #### 5 7021-8 ####[facility] HOSPITALNCLIA [id number] [place] [address] [place] MCV (RBC) [Entitic vol] 91.7 fL Normal 80.0-100.0 [facility] Comment on above: Order Comment: Speci men Type: BLOOD SPECIMENOrdering Facility: [facility] Address: [address] [place] [address] Performed By: #### 5 7021-8 ####[facility] HOSPITALNCLIA [id number] [place] [address] [place] Monocytes (Bld) [#/Vol] 0.51 10*3/uL Normal <0.87 [facility] Comment on above: Order Comment: Speci men Type: BLOOD SPECIMENOrdering Facility: [facility] Address: [address] [place] [address] Performed By: #### 5 7021-8 ####[facility]PITALNCLIA [id number] [place] [address] [place] Monocytes/100 WBC (Bld) 11.2 % Normal C [facility] Comment on above: Order Comment: Speci men Type: BLOOD SPECIMENOrdering Facility: [facility] Address: [address] [place] [address] Performed By: #### 5 7021-8 ####[facility] HOSPITALZEVLIA [id number] [place] [address] [place] Neutrophils (Bld) [#/Vol] 3.39 10*3/uL Normal 1.45-7.50 [facility] Comment on above: Order Comment: Speci men Type: BLOOD SPECIMENOrdering Facility: [facility] Address: [address] [place] [address] Performed By: #### 5 7021-8 ####[facility] HOSPITALLIA [id number] [place] [address] [place] Neutrophils/100 WBC (Bld) 74.3 % Normal [facility] Comment on above: Order Comment: Speci men Type: BLOOD SPECIMENOrdering Facility: [facility] Address: [address] [place] [address] Performed By: #### 5 7021-8 ####[facility] DORAL [id number] [place] [address] [place] Nucleated RBC (Bld) [#/Vol] 10*3/uL Normal <0.01 [facility] Comment on above: Order Comment: Speci men Type: BLOOD SPECIMENOrdering Facility: [facility] Address: [address] [place] [address] Performed By: #### 5 7021-8 ####[facility]ITALA [id number] [place] [address] [place] Nucleated RBC/100 WBC (Bld) [Ratio] 0.0 /100 WBC Normal [facility] Comment on above: Order Comment: Speci men Type: BLOOD SPECIMENOrdering Facility: [facility] Address: [address] [place] [address] Performed By: #### 5 7021-8 ####[facility] HOSPITALNCLI [id number] [place] [address] [place] Platelet mean volume (Bld) [Entitic vol] 10.4 fL Normal 9.0-12.7 [facility] Comment on above: Order Comment: Speci men Type: BLOOD SPECIMENOrdering Facility: [facility] Address: [address] [place] [address] Performed By: #### 5 7021-8 ####[facility]ITALNCLIA [id number] [place] [address] [place] Platelets (Bld) [#/Vol] 202 10*3/uL Normal 150-400 [facility] Comment on above: Order Comment: Speci men Type: BLOOD SPECIMENOrdering Facility: [facility] Address: [address] [place] [address] Performed By: #### 5 7021-8 ####[facility] HOSPITALNCA [id number] [place] [address] [place] RBC (Bld) [#/Vol] 3.73 10*6/uL Low 3.90-5.20 [facility] Comment on above: Order Comment: Speci men Type: BLOOD SPECIMENOrdering Facility: [facility] Address: [address] [place] [address] Performed By: #### 5 7021-8 ####[facility]ITALA [id number] [place] [address] [place] WBC (Bld) [#/Vol] 4.56 10*3/uL Normal 3.70-11.00 [facility] Comment on above: Order Comment: Speci men Type: BLOOD SPECIMENOrdering Facility: [facility] Address: [address] [place] [address] Performed By: #### 5 7021-8 ####[facility]PITALNCLIA [id number] [place] [address] [place] Comprehensive metabolic 2000 panelOrdered By: Tala Mejia on 02-01-2025 Albumin [Mass/Vol] 3.6 g/dL Low 3.9 - 4.9 g/dL [facility] ALP [Catalytic activity/Vol] 85 U/L 34 - 123 U/L [facility] [facility] ALT [Catalytic activity/Vol] 8 U/L 7 - 38 U/L [facility] Anion gap [Moles/Vol] 13 mmol/L 8 - 15 mmol/L [facility] AST [Catalytic activity/Vol] 15 U/L 13 - 35 U/L [facility] Bilirubin [Mass/Vol] 0.2 mg/dL 0.2 - 1 .3 mg/dL [facility] Calcium [Mass/Vol] 8.8 mg/dL 8.5 - 10. 2 mg/dL [facility] Chloride [Moles/Vol] 101 mmol/L 98 - 10 7 mmol/L [facility] CO2 [Moles/Vol] 21 mmol/L Low 22 - 30 mmol/L [facility] Creatinine [Mass/Vol] 0.62 mg/dL 0.58 - 0.96 mg/dL [facility] GFR/1.73 sq M.predicted among non-blacks MDRD (S/P/Bld) [Vol rate/Area] 99 mL/min/{1.73_m2} - PINF [facility] Comment on above: Estimated Glomerular Filtration Rate [...] [Mass/Vol] 92 mg/dL 74 - 99 mg/dL [facility] Comment on above: The [place] Diabete s Association (ADA) provides guidance for [...] Standards of Medical Care in Diabetes 2016, [place] [employer] Association. Diabetes Care. 2016.39(Suppl 1). Interpretation and review of laboratory results Abnormal [facility] Potassium [Moles/Vol] 4.4 mmol/L 3.7 - 5.1 mmol/L [facility] Protein [Mass/Vol] 6.3 g/dL 6.3 - 8.0 g/dL [facility] Sodium [Moles/Vol] 135 mmol/L Low 136 - 144 mmol/L [facility] Urea nitrogen [Mass/Vol] 7 mg/dL 7 - 21 mg/dL [facility] Comprehensive metabolic 2000 panelon 02-01-2025 Albumin [Mass/Vol] 3.6 g/dL Low 3.9-4.9 [facility] Comment on above: Order Comment: Speci men Type: BLOOD SPECIMENOrdering Facility: [facility] Address: [address] [place] [address] Performed By: #### 2 4323-8 ####[facility] MILLWZEVLIA [id number] [address] [place] LABCLIA [id number] [place] [address] [place] ALP [Catalytic activity/Vol] 85 U/L Normal 34-123 [facility] Comment on above: Order Comment: Speci men Type: BLOOD SPECIMENOrdering Facility: [facility] Address: [address] [place] [address] Performed By: #### 2 4323-8 ####[facility]ALTOWNCLIA [id number] [address] [place] LABCLIA [id number] [place] [address] [place] ALT [Catalytic activity/Vol] 8 U/L Normal 7-38 [facility] Comment on above: Order Comment: Speci men Type: BLOOD SPECIMENOrdering Facility: [facility] Address: [address] [place] [address] Performed By: #### 2 4323-8 ####[facility] MILLWNCLIA [id number] [place], [place] [id number] [place] [address] OF AMERICAAKRON GENERAL [place] LABCLIA [id number] [place] [address] [place] Anion gap [Moles/Vol] 13 mmol/L Normal 8-15 [facility] Comment on above: Order Comment: Speci men Type: BLOOD SPECIMENOrdering Facility: [facility] Address: [address] [place] [address] Performed By: #### 2 4323-8 ####[facility] RIGOBERTO MILLTOWNCLIA [id number] [address] OF [facility] [place] LABCLIA [id number] [place] [address] [place] AST [Catalytic activity/Vol] 15 U/L Normal 13-35 [facility] Comment on above: Order Comment: Speci men Type: BLOOD SPECIMENOrdering Facility: [facility] Address: [address] [place] [address] Performed By: #### 2 4323-8 ####[facility] RIGOBERTO MILLTOWNCLIA [id number] [address] OF [facility] [place] LABCLIA [id number] [place] [address] [place] Bilirubin [Mass/Vol] 0.2 mg/dL Normal 0.2-1.3 [facility] Comment on above: Order Comment: Speci men Type: BLOOD SPECIMENOrdering Facility: [facility] Address: [address] [place], [place] [address] Performed By: #### 2 4323-8 ####[facility] RIGOBERTO MILLTOWNCLIA [id number] [address] STATES OF AMERICAAKRON GENERAL [place] LABCLIA [id number] [place] [address] [place] Calcium [Mass/Vol] 8.8 mg/dL Normal 8.5-10.2 [facility] Comment on above: Order Comment: Speci men Type: BLOOD SPECIMENOrdering Facility: [facility] Address: [address] [place] [address] Performed By: #### 2 4323-8 ####[facility] RIGOBERTO MILLTOWNCLIA [id number] [place] [address] [facility] [place] LABCLIA [id number] [place] [address] [place] Chloride [Moles/Vol] 101 mmol/L Normal 98-107 [facility] Comment on above: Order Comment: Speci men Type: BLOOD SPECIMENOrdering Facility: [facility] Address: [address] [place] [address] Performed By: #### 2 4323-8 ####[facility] RIGOBERTO MILLTOWNCLIA [id number] [place] [address] [facility] OF AMERICAAKRON GENERAL [place] LABCLIA [id number] [place] [address] [place] CO2 [Moles/Vol] 21 mmol/L Low 22-30 [facility] Comment on above: Order Comment: Speci men Type: BLOOD SPECIMENOrdering Facility: [facility] Address: [address] [place] [address] Performed By: #### 2 4323-8 ####[facility] RIGOBERTO MILLTOWNCLIA [id number] [address] [place] LABCLIA [id number] [place] [address] [place] Creatinine [Mass/Vol] 0.62 mg/dL Normal 0.58-0.96 [facility] Comment on above: Order Comment: Speci men Type: BLOOD SPECIMENOrdering Facility: [facility] Address: [address] [place] [address] Performed By: #### 2 4323-8 ####[facility] RIGOBERTO MILLTOWNCLIA [id number] [address] LABCLIA [id number] [place] [id number] [place] [facility] Creatinine and Glomerular filtration rate.predicted panel (S/P/Bld) 99 mL/min/1.73m??? Normal >=60 [facility] Comment on above: Order Comment: Mindy mcfarlane Type: BLOOD SPECIMENOrdering Facility: [facility] Address: [address] [place] [address] Result Comment: Sonia mated Glomerular Filtration Rate [...] actual GFR. Performed By: #### 2 4323-8 ####[facility] D[facility]AL [id number] [address] LABMA[facility] [id number] [place] [address] [place] Glucose [Mass/Vol] 92 mg/dL Normal 74-99 [facility] Comment on above: Order Comment: Mindy mcfarlane Type: BLOOD SPECIMENOrdering Facility: [facility] Address: [address] [place] [address] Result Comment: The [place] Diabetes Association (ADA) provides guidance for cutoff [...] Standards of Medical Care in Diabetes 2016, [place] [employer]. Diabetes Care. 2016.39(Suppl 1). Performed By: #### 2 4323-8 ####[facility] RIGOBERTO MILLTOWNCLIA [id number] [address] [place] LABCLIA [id number] [place] [address] [place] Potassium [Moles/Vol] 4.4 mmol/L Normal 3.7-5.1 [facility] Comment on above: Order Comment: Speci men Type: BLOOD SPECIMENOrdering Facility: [facility] Address: [address] [place] [address] Performed By: #### 2 4323-8 ####[facility] MILLTOWNCLIA [id number] [address] [place] LABCLIA [id number] [place] [address] [place] Protein [Mass/Vol] 6.3 g/dL Normal 6.3-8.0 [facility] Comment on above: Order Comment: Speci men Type: BLOOD SPECIMENOrdering Facility: [facility] Address: [address] [place] [address] Performed By: #### 2 4323-8 ####[facility] MILLTOWNCLIA [id number] [address] [place] LABCLIA [id number] [place] [address] [place] Sodium [Moles/Vol] 135 mmol/L Low 136-144 [facility] Comment on above: Order Comment: Speci men Type: BLOOD SPECIMENOrdering Facility: [facility] Address: [address] [place] [address] Performed By: #### 2 4323-8 ####[facility] MILLTOWNCLIA [id number] [address] [place] LABCLIA [id number] [place] [address] [place] Urea nitrogen [Mass/Vol] 7 mg/dL Normal 7-21 [facility] Comment on above: Order Comment: Speci men Type: BLOOD SPECIMENOrdering Facility: [facility] Address: [address] [place] [address] Performed By: #### 2 4323-8 ####[facility] RIGOBERTO [facility] SERVICESLIA [id number] [place] [address] [place] [facility] [place] LABCLIA [id number] [place] [address] [place] MRI PELVIS WO/W IVCONon 07-0 MRI PELVIS WO/W IVCON Normal [facility] 25(OH)D3 SerPl-mCncon 2024 25-hydroxyvitamin D3 [Mass/Vol] 33.8 ng/mL Normal 31.0-80.0 [facility] Comment on above: Order Comment: Speci men Type: BLOOD SPECIMENOrdering Facility: External Submitter Address: , , Result Comment: Clas sification of 25 [place] Vitamin D status:Deficiency/Insufficiency: < or = 30 ng/ml.Sufficiency/Optimal Levels: 31-80 ng/mLToxicity: > 100 ng/mL.Test performed by chemiluminescent immunoassay. Performed By: #### 1 989-3 ####[facility] LABCLIA [id number] [address] [place] CBC W Auto Differential pane l (Bld)on 01-14-2025 Basophils (Bld) [#/Vol] 0.05 10*3/uL [facility] Basophils/100 WBC (Bld) 1 % [facility] Differential cell count method Nom (Bld) Auto [facility] Eosinophils (Bld) [#/Vol] 0.12 10*3/uL [facility] Eosinophils/100 WBC (Bld) 2.5 % [facility] Erythrocyte distribution width (RBC) [Ratio] 15.8 % High 11.5 - 15.0 % [facility] Hematocrit (Bld) [Volume fraction] 35.3 % Low 36.0 - 46.0 % [facility] Hemoglobin (Bld) [Mass/Vol] 11.3 g/dL Low 11.5 - 15.5 g/dL [facility] Immature granulocytes (Bld) [#/Vol] 0.03 10*3/uL [facility] Immature granulocytes/100 WBC (Bld) 0.6 % [facility] Interpretation and review of laboratory results Abnormal [facility] Lymphocytes (Bld) [#/Vol] 0.41 10*3/uL Low [facility] Lymphocytes/100 WBC (Bld) 8.4 % [facility] MCH (RBC) [Entitic mass] 29.1 pg 26.0 - 34.0 pg [facility] MCHC (RBC) [Mass/Vol] 32 g/dL 30.5 - 36.0 g/dL [facility] MCV (RBC) [Entitic vol] 91 fL 80.0 - 100.0 fL [facility] Monocytes (Bld) [#/Vol] 0.64 10*3/uL [facility] Monocytes/100 WBC (Bld) 13.2 % [facility] Neutrophils (Bld) [#/Vol] 3.61 10*3/uL [facility] Neutrophils/100 WBC (Bld) 74.3 % [facility] Nucleated RBC (Bld) [#/Vol] [facility] Nucleated RBC/100 WBC (Bld) [Ratio] 0 % /100 WBC [facility] Platelet mean volume (Bld) [Entitic vol] 10.2 fL 9.0 - 12.7 fL [facility] Platelets (Bld) [#/Vol] 213 10*3/uL [facility] RBC (Bld) [#/Vol] 3.88 10*6/uL Low 3.90 - 5.2 0 m/uL [facility] WBC (Bld) [#/Vol] 4.86 10*3/uL [facility] Basophils (Bld) [#/Vol] 0.05 10*3/uL Normal <0.11 [facility] Comment on above: Order Comment: Speci men Type: BLOOD SPECIMENOrdering Facility: External Submitter Address: , , Performed By: #### 5 7021-8 ####[facility] [id number] [place] [address] [place] Basophils/100 WBC (Bld) 1.0 % Normal [facility] Comment on above: Order Comment: Speci men Type: BLOOD SPECIMENOrdering Facility: External Submitter Address: , , Performed By: #### 5 7021-8 ####[facility] [id number] [address] [place] Differential cell count method Nom (Bld) Auto Normal [facility] Comment on above: Order Comment: Speci men Type: BLOOD SPECIMENOrdering Facility: External Submitter Address: , , Performed By: #### 5 7021-8 ####[facility] [id number] [place] [address] [place] Eosinophils (Bld) [#/Vol] 0.12 10*3/uL Normal <0.46 [facility] Comment on above: Order Comment: Speci men Type: BLOOD SPECIMENOrdering Facility: External Submitter Address: , , Performed By: #### 5 7021-8 ####[facility] [id number] [address] OF [facility] Eosinophils/100 WBC (Bld) 2.5 % Normal [facility] Comment on above: Order Comment: Speci men Type: BLOOD SPECIMENOrdering Facility: External Submitter Address: , , Performed By: #### 5 7021-8 ####[facility] [id number] [place] [address] [place] Erythrocyte distribution width (RBC) [Ratio] 15.8 % High 11.5-15.0 [facility] Comment on above: Order Comment: Speci men Type: BLOOD SPECIMENOrdering Facility: External Submitter Address: , , Performed By: #### 5 7021-8 ####[facility] [id number] [place] [address] [place] Hematocrit (Bld) [Volume fraction] 35.3 % Low 36.0-46.0 [facility] Comment on above: Order Comment: Speci men Type: BLOOD SPECIMENOrdering Facility: External Submitter Address: , , Performed By: #### 5 7021-8 ####[facility] [id number] [place] [address] [place] Hemoglobin (Bld) [Mass/Vol] 11.3 g/dL Low 11.5-15.5 [facility] Comment on above: Order Comment: Speci men Type: BLOOD SPECIMENOrdering Facility: External Submitter Address: , , Performed By: #### 5 7021-8 ####[facility] [id number] [place] [address] [place] Immature granulocytes (Bld) [#/Vol] 0.03 10*3/uL Normal <0.10 [facility] Comment on above: Order Comment: Speci men Type: BLOOD SPECIMENOrdering Facility: External Submitter Address: , , Performed By: #### 5 7021-8 ####[facility] [id number] [address] [place] Immature granulocytes/100 WBC (Bld) 0.6 % Normal [facility] Comment on above: Order Comment: Speci men Type: BLOOD SPECIMENOrdering Facility: External Submitter Address: , , Performed By: #### 5 7021-8 ####[facility] [id number] [place] [address] [place] Lymphocytes (Bld) [#/Vol] 0.41 10*3/uL Low 1.00-4.00 [facility] Comment on above: Order Comment: Speci men Type: BLOOD SPECIMENOrdering Facility: External Submitter Address: , , Performed By: #### 5 7021-8 ####[facility] [id number] [place] [address] [place] Lymphocytes/100 WBC (Bld) 8.4 % Normal [facility] Comment on above: Order Comment: Speci men Type: BLOOD SPECIMENOrdering Facility: External Submitter Address: , , Performed By: #### 5 7021-8 ####[facility] [id number] [address] MCH (RBC) [Entitic mass] 29.1 pg Normal 26.0-34.0 [facility] Comment on above: Order Comment: Speci men Type: BLOOD SPECIMENOrdering Facility: External Submitter Address: , , Performed By: #### 5 7021-8 ####[facility] [id number] [address] [place] MCHC (RBC) [Mass/Vol] 32.0 g/dL Normal 30.5-36.0 [facility] Comment on above: Order Comment: Speci men Type: BLOOD SPECIMENOrdering Facility: External Submitter Address: , , Performed By: #### 5 7021-8 ####[facility] [id number] [address] [place] MCV (RBC) [Entitic vol] 91.0 fL Normal 80.0-100.0 [facility] Comment on above: Order Comment: Speci men Type: BLOOD SPECIMENOrdering Facility: External Submitter Address: , , Performed By: #### 5 7021-8 ####[facility] [id number] [address] Monocytes (Bld) [#/Vol] 0.64 10*3/uL Normal <0.87 [facility] Comment on above: Order Comment: Speci men Type: BLOOD SPECIMENOrdering Facility: External Submitter Address: , , Performed By: #### 5 7021-8 ####[facility] ALYSSAKEENENICOLE [id number] [place] [address] [place] Monocytes/100 WBC (Bld) 13.2 % Normal C [facility] Comment on above: Order Comment: Speci men Type: BLOOD SPECIMENOrdering Facility: External Submitter Address: , , Performed By: #### 5 7021-8 ####[facility] [id number] [place] [address] [place] Neutrophils (Bld) [#/Vol] 3.61 10*3/uL Normal 1.45-7.50 [facility] Comment on above: Order Comment: Speci men Type: BLOOD SPECIMENOrdering Facility: External Submitter Address: , , Performed By: #### 5 7021-8 ####[facility] [id number] [address] [place] Neutrophils/100 WBC (Bld) 74.3 % Normal [facility] Comment on above: Order Comment: Speci men Type: BLOOD SPECIMENOrdering Facility: External Submitter Address: , , Performed By: #### 5 7021-8 ####[facility] [id number] [address] [place] Nucleated RBC (Bld) [#/Vol] 10*3/uL Normal <0.01 [facility] Comment on above: Order Comment: Speci men Type: BLOOD SPECIMENOrdering Facility: External Submitter Address: , , Performed By: #### 5 7021-8 ####[facility] [id number] [address] [place] Nucleated RBC/100 WBC (Bld) [Ratio] 0.0 /100 WBC Normal [facility] Comment on above: Order Comment: Speci men Type: BLOOD SPECIMENOrdering Facility: External Submitter Address: , , Performed By: #### 5 7021-8 ####[facility]ITALNCTIFFANI [id number] [place] [address] [place] Platelet mean volume (Bld) [Entitic vol] 10.2 fL Normal 9.0-12.7 [facility] Comment on above: Order Comment: Speci men Type: BLOOD SPECIMENOrdering Facility: External Submitter Address: , , Performed By: #### 5 7021-8 ####[facility]ITALTIFFANI [id number] [place] [address] [place] Platelets (Bld) [#/Vol] 213 10*3/uL Normal 150-400 [facility] Comment on above: Order Comment: Speci men Type: BLOOD SPECIMENOrdering Facility: External Submitter Address: , , Performed By: #### 5 7021-8 ####[facility]ITALNC[facility] [id number] [place] [address] [place] RBC (Bld) [#/Vol] 3.88 10*6/uL Low 3.90-5.20 [facility] Comment on above: Order Comment: Speci men Type: BLOOD SPECIMENOrdering Facility: External Submitter Address: , , Performed By: #### 5 7021-8 ####[facility]ITALNCSEVI[facility] [id number] [place] [address] [place] WBC (Bld) [#/Vol] 4.86 10*3/uL Normal 3.70-11.00 [facility] Comment on above: Order Comment: Speci men Type: BLOOD SPECIMENOrdering Facility: External Submitter Address: , , Performed By: #### 5 7021-8 ####[facility] HOSPITALNCLI [id number] [place] [address] [place] CRP [facility]20[facility] CRP [Mass/Vol] 0.4 mg/dL Normal <0.9 [facility] Comment on above: Order Comment: Speci men Type: BLOOD SPECIMENOrdering Facility: External Submitter Address: , , Performed By: #### 2 132-9, 1987-11 ####[facility] LABCLIA [id number] [address]URYKarol [address] Comprehensive metabolic 2000 panelOrdered By: Cyndie Zhou on 01-14-2025 Albumin [Mass/Vol] 3.7 g/dL Low 3.9 - 4.9 g/dL [facility] ALP [Catalytic activity/Vol] 81 U/L 34 - 123 U/L [facility] ALT [Catalytic activity/Vol] 11 U/L 7 - 38 U/L [facility] Anion gap [Moles/Vol] 11 mmol/L 8 - 15 mmol/L [facility] AST [Catalytic activity/Vol] 20 U/L 13 - 35 U/L [facility] Bilirubin [Mass/Vol] 0.2 mg/dL 0.2 - 1 .3 mg/dL [facility] Calcium [Mass/Vol] 9.1 mg/dL 8.5 - 10. 2 mg/dL [facility] Chloride [Moles/Vol] 102 mmol/L 98 - 10 7 mmol/L [facility] CO2 [Moles/Vol] 21 mmol/L Low 22 - 30 mmol/L [facility] Creatinine [Mass/Vol] 0.59 mg/dL 0.58 - 0.96 mg/dL [facility] GFR/1.73 sq M.predicted among non-blacks MDRD (S/P/Bld) [Vol rate/Area] 100 mL/min/{1.73_m2} - PINF [facility] Comment on above: Estimated Glomerular Filtration Rate [...] 106 mg/dL High 74 - 99 mg/dL [facility] Comment on above: The [place] Diabete [employer] Association (ADA) provides guidance for [...] Standards of Medical Care in Diabetes 2016, [place] [employer]. Diabetes Care. 2016.39(Suppl 1). Interpretation and review of laboratory results Abnormal [facility] Potassium [Moles/Vol] 4.2 mmol/L 3.7 - 5.1 mmol/L [facility] Protein [Mass/Vol] 6.1 g/dL Low 6.3 - 8.0 g/dL [facility] Sodium [Moles/Vol] 134 mmol/L Low 136 - 144 mmol/L [facility] Urea nitrogen [Mass/Vol] 9 mg/dL 7 - 21 mg/dL [facility] Comprehensive metabolic 2000 panelon 01-14-2025 Albumin [Mass/Vol] 3.7 g/dL Low 3.9-4.9 [facility] Comment on above: Order Comment: Mindy mcfarlane Type: BLOOD SPECIMENOrdering Facility: External Submitter Address: , , Performed By: #### 2 4323-8 ####[facility] [id number] [place] [address] [place] ALP [Catalytic activity/Vol] 81 U/L Normal 34-123 [facility] Comment on above: Order Comment: Mindy mcfarlane Type: BLOOD SPECIMENOrdering Facility: External Submitter Address: , , Performed By: #### 2 4323-8 ####[facility] [id number] [place] [address] [place] ALT [Catalytic activity/Vol] 11 U/L Normal 7-38 [facility] Comment on above: Order Comment: Mindy mcfarlane Type: BLOOD SPECIMENOrdering Facility: External Submitter Address: , , Performed By: #### 2 4323-8 ####[facility]ITALTIFFANIA [id number] [place] [address] [place] Anion gap [Moles/Vol] 11 mmol/L Normal 8-15 [facility] Comment on above: Order Comment: Speci men Type: BLOOD SPECIMENOrdering Facility: External Submitter Address: , , Performed By: #### 2 4323-8 ####[facility] [id number] [place] [address] [place] AST [Catalytic activity/Vol] 20 U/L Normal 13-35 [facility] Comment on above: Order Comment: Speci men Type: BLOOD SPECIMENOrdering Facility: External Submitter Address: , , Performed By: #### 2 4323-8 ####[facility] [id number] [place] [address] [place] Bilirubin [Mass/Vol] 0.2 mg/dL Normal 0.2-1.3 [facility] Comment on above: Order Comment: Speci men Type: BLOOD SPECIMENOrdering Facility: External Submitter Address: , , Performed By: #### 2 4323-8 ####[facility] [id number] [place] [address] [place] Calcium [Mass/Vol] 9.1 mg/dL Normal 8.5-10.2 [facility] Comment on above: Order Comment: Speci men Type: BLOOD SPECIMENOrdering Facility: External Submitter Address: , , Performed By: #### 2 4323-8 ####[facility] [id number] [place] [address] [place] Chloride [Moles/Vol] 102 mmol/L Normal 98-107 [facility] Comment on above: Order Comment: Speci men Type: BLOOD SPECIMENOrdering Facility: External Submitter Address: , , Performed By: #### 2 4323-8 ####[facility] [id number] [place] [address] [place] CO2 [Moles/Vol] 21 mmol/L Low 22-30 [facility] Comment on above: Order Comment: Speci men Type: BLOOD SPECIMENOrdering Facility: External Submitter Address: , , Performed By: #### 2 4323-8 ####[facility] [id number] [address] [place] Creatinine [Mass/Vol] 0.59 mg/dL Normal 0.58-0.96 [facility] Comment on above: Order Comment: Speci men Type: BLOOD SPECIMENOrdering Facility: External Submitter Address: , , Performed By: #### 2 4323-8 ####[facility] [id number] [address] Creatinine and Glomerular filtration rate.predicted panel (S/P/Bld) 100 mL/min/1.73m??? Normal >=60 [facility] Comment on above: Order Comment: Speci [...] actual GFR. Performed By: #### 2 4323-8 ####[facility] [id number] [place] [address] [place] Glucose [Mass/Vol] 106 mg/dL High 74-99 [facility] Comment on above: Order Comment: Speci men Type: BLOOD SPECIMENOrdering Facility: External Submitter Address: , , Result Comment: The [place] Diabetes Association (ADA) provides guidance for cutoff [...] Standards of Medical Care in Diabetes 2016, [place] [employer] Association. Diabetes Care. 2016.39(Suppl 1). Performed By: #### 2 4323-8 ####[facility] [id number] [place] [address] [place] Potassium [Moles/Vol] 4.2 mmol/L Normal 3.7-5.1 [facility] Comment on above: Order Comment: Mindy mcfarlane Type: BLOOD SPECIMENOrdering Facility: External Submitter Address: , , Performed By: #### 2 4323-8 ####[facility] [id number] [place] [address] [place] Protein [Mass/Vol] 6.1 g/dL Low 6.3-8.0 [facility] Comment on above: Order Comment: Mindy mcfarlane Type: BLOOD SPECIMENOrdering Facility: External Submitter Address: , , Performed By: #### 2 4323-8 ####[facility] [id number] [place] [address] [place] Sodium [Moles/Vol] 134 mmol/L Low 136-144 [facility] Comment on above: Order Comment: Mindy mcfarlane Type: BLOOD SPECIMENOrdering Facility: External Submitter Address: , , Performed By: #### 2 4323-8 ####[facility] [id number] [place] [id number] [place] Urea nitrogen [Mass/Vol] 9 mg/dL Normal 7-21 [facility] Comment on above: Order Comment: Speci men Type: BLOOD SPECIMENOrdering Facility: External Submitter Address: , , Performed By: #### 2 4323-8 ####[facility] [id number] [place] [id number] [place] [address] [place] Gastroenterology Visit Repor ton 01-14-2025 Gastroenterology Visit Report [facility] Gastroenterology [address] [place] [id number] OFFICE VISIT Date of Service: 01/14/25 MR#: [id number] Acct: [id number] Name: MARIMAR WANG Rep #: [id number] : 1960 Provider: SINAI arriaza Age/Sex: 64/F Location: [facility] Status: Signed Intake Vital Signs 10/30/24 00:58 12/27/24 14:43 01/14/25 08:27 Height 5 ft 2 in 5 ft 2 in 5 ft 2 in Weight: 183 lb BMI 33.5 BP 167/84 H Respiration 20 H Pulse 74 Temp 97.6 F L Temp Source Temporal Pulse Oximetry (%) 96 Oxygen Delivery Method room air Intake Visit Reasons: FU Chief Complaint: Crohn's follow-up Special Events Assistant Required: No Accompanied by: Self Is patient [...] QHS MENTAL HEALTH 6 01/14/25 History peg 511-bcuedukwagbx-jewhbzv n 1 1 drp OP 4X/DAY DRY [...] Constipation 01/14/25 History gram/dose oral powder (Miralax) crupzx-lhofeedc-knltdnb See Rx Instructions PO .COMPLEX 01/14/25 Rx [...] Q12H 10/24/24 01/14/25 History a dose pack (EliquTriNovus DVT-PE Treat 30D Start) cholecalciferol (vitamin D3) [...] you fallen in the past year?: No [facility] Medical History 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 Normal [facility] HBV core Ab Ser Qlon 025 HBV core Ab Ql (S) Negative Normal Negative [facility] Comment on above: Order Comment: Speci men Type: BLOOD SPECIMENOrdering Facility: External Submitter Address: , , Result Comment: No e vidence of current or past infection with Hepatitis B virus. Should recent infection be suspected, repeat testing may be considered 3-4 weeks after this draw. Performed By: #### 2 2322-2, 5195-3, 74437-6 ####[facility] [id number] [place] [address] [place] HBV surface Ab Ql (S)on 12-27 HBV surface Ab Qn (S) <8.00 Normal [facility] Comment on above: Order Comment: Speci men Type: BLOOD SPECIMENOrdering Facility: External Submitter Address: , , Result Comment: <8 m IU/mL: No serological evidence of immunity to Hepatitis B Virus.>/= 8 to <12 mIU/mL: No serological evidence of immunity to Hepatitis B Virus.>/= 12 mIU/mL: Consistent with serological evidence of immunity to Hepatitis B Virus. Performed By: #### 2 2322-2, 5195-3, 83432-1 ####[facility] [id number] [place] [address] [place] HBV surface Ab Ser Qlon 12-27 HBV surface Ab Ql (S) Negative Normal [facility] Comment on above: Order Comment: Speci men Type: BLOOD SPECIMENOrdering Facility: External Submitter Address: , , Result Comment: No s erological evidence of immunity to Hepatitis B Virus. Performed By: #### 2 2322-2, 5195-3, 94222-6 ####[facility] [id number] [place] [id number] [facility] [place] HBV surface Ag Ser Qlon 12-27 HBV surface Ag Ql (S) Negative Normal Negative [facility] Comment on above: Order Comment: Speci men Type: BLOOD SPECIMENOrdering Facility: External Submitter Address: , , Performed By: #### 2 2322-2, 5195-3, 39900-7 ####[facility] LABCLIA [id number] [place] [id number] [place] Vit B12 SerPl-mCncon 025 Cobalamin (Vitamin B12) [Mass/Vol] 1301 pg/mL High 232-1245 [facility] Comment on above: Order Comment: Speci men Type: BLOOD SPECIMENOrdering Facility: External Submitter Address: , , Performed By: #### 2 132-9, 1987-11 ####[facility] LABCLIA [id number] [place] [id number] [facility] [place] CNPNon 01-05-2025 CNPN Normal [facility] Emergency Department Summary on 12-27-2024 Emergency Department Summary [facility] Records Department [address] [place] [address] Emergency Department Summary 12/27/24 MR#: [id number] Acct: [id number] Name: MARIMAR WANG Rep #: [id number] : 1960 64 From: Woo Thapa MD [...] injury. She has no fever or chills. [facility] Medical History Squamous cell cancer of [...] QHS MENTAL HEALTH 6 09/01/24 History peg 738-zeatugzvlomm-fpvfetl n 1 1 drp OP 4X/DAY DRY [...] Constipation Unknown History gram/dose oral powder (Miralax) mcjjti-rfapaehn-nmwixwz See Rx Instructions PO .COMPLEX 09/01/24 Rx [...] HCl 1 (more content not included)... Normal [facility] Pelvis without IV Contraston 12-27-2024 Pelvis without IV Contrast [facility] Imaging Services [address] [place] [address] Pelvis without IV Contrast MR#: [id number] Acct: [id number] Name: MARIMAR WANG Rep #: [id number] : 1960 F 64 From: Pablo Mendoza MD PCP: [facility] Arriola Status: REG ER Study: Pelvis without IV Contrast Date of Exam: 12/27 Exam# [id number] Ordering Dr: Ekaterina Wadsworth PROCEDURE: PELVIS WITHOUT [...] Contrast IMPRESSION: No acute abnormalities. Reading Location: [id number] CC: SINAI Arriaga; CY Arcos Pre Owned Sales Manager: Signed [facility] 12-11-2024 [facility] 12-04-2024 [facility] Telephone (RHBATH) -------- MARIMAR WANG ([id number]) 1960 F Date Time Provider Department 12/04/24 [...] Date Reviewed: 11/30/2024 Reviewed by: Delvin Ron APRN.FOLDER TIER - Fully Assessed Reason for Visit: Patient [...] by mouth two times a day. - pzpzmhzzgiSDOIP-ckgnqo-o idocaine (BMX 1:1:1) 1:1:1 liqd Take 10 [...] 80 mg by mouth once daily. - enbwjl-hdglakkv-drusjnh (CREON 36) 36,000-114,000- 180,000 unit delayed release [...] of Breath (more content not included)... Normal [facility] CBC W/Diff, Automatedon PATH REV N/A Normal [facility] Comment on above: Result Comment: Path ology review canceled due to updated review criteria. AMENDED REPORT 12/03/24 1202 PATH REV previously reported as: November Performed By: #### L 100.0100, L500.2500 #### [facility] Laboratory [facility] [place] [address], [address] CBC W Auto Differential pane l (Bld)on 11-30-2024 Basophils (Bld) [#/Vol] 0.07 10*3/uL [facility] Basophils/100 WBC (Bld) 1.5 % [facility] Differential cell count method Nom (Bld) Auto [facility] Eosinophils (Bld) [#/Vol] 0.18 10*3/uL [facility] Eosinophils/100 WBC (Bld) 3.8 % [facility] Erythrocyte distribution width (RBC) [Ratio] 20.7 % High 11.5 - 15.0 % [facility] Hematocrit (Bld) [Volume fraction] 35 % Low 36.0 - 46.0 % [facility] Hemoglobin (Bld) [Mass/Vol] 11.2 g/dL Low 11.5 - 15.5 g/dL [facility] Immature granulocytes (Bld) [#/Vol] 0.03 10*3/uL [facility] Immature granulocytes/100 WBC (Bld) 0.6 % [facility] Interpretation and review of laboratory results Abnormal [facility] Lymphocytes (Bld) [#/Vol] 0.24 10*3/uL Low [facility] Lymphocytes/100 WBC (Bld) 5 % [facility] MCH (RBC) [Entitic mass] 28.9 pg 26.0 - 34.0 pg [facility] MCHC (RBC) [Mass/Vol] 32 g/dL 30.5 - 36.0 g/dL [facility] MCV (RBC) [Entitic vol] 90.2 fL 80.0 - 100.0 fL [facility] Monocytes (Bld) [#/Vol] 0.63 10*3/uL [facility] Monocytes/100 WBC (Bld) 13.1 % [facility] Neutrophils (Bld) [#/Vol] 3.65 10*3/uL [facility] Neutrophils/100 WBC (Bld) 76 % [facility] Nucleated RBC (Bld) [#/Vol] [facility] Nucleated RBC/100 WBC (Bld) [Ratio] 0 % /100 WBC [facility] Platelet mean volume (Bld) [Entitic vol] 10 fL 9.0 - 12.7 fL [facility] Platelets (Bld) [#/Vol] 194 10*3/uL [facility] RBC (Bld) [#/Vol] 3.88 10*6/uL Low 3.90 - 5.2 0 m/uL [facility] WBC (Bld) [#/Vol] 4.8 10*3/uL [facility] Basophils (Bld) [#/Vol] 0.07 10*3/uL Normal <0.11 [facility] Comment on above: Order Comment: Speci men Type: BLOOD SPECIMENOrdering Facility: [facility] Address: [address] [place] [address] Performed By: #### 5 7021-8 ####[facility] [id number] [address] [place] Basophils/100 WBC (Bld) 1.5 % Normal C [facility] Comment on above: Order Comment: Speci men Type: BLOOD SPECIMENOrdering Facility: [facility] Address: [address] [place] [address] Performed By: #### 5 7021-8 ####[facility]ITALZEVLIA [id number] [place] [address] [place] Differential cell count method Nom (Bld) Auto Normal [facility] Comment on above: Order Comment: Speci men Type: BLOOD SPECIMENOrdering Facility: [facility] Address: [address] [place] [address] Performed By: #### 5 7021-8 ####[facility]ITALZEVA [id number] [place] [address] [place] Eosinophils (Bld) [#/Vol] 0.18 10*3/uL Normal <0.46 [facility] Comment on above: Order Comment: Speci men Type: BLOOD SPECIMENOrdering Facility: [facility] Address: [address] [place] [address] Performed By: #### 5 7021-8 ####[facility] [id number] [place] [address] [place] Eosinophils/100 WBC (Bld) 3.8 % Normal [facility] Comment on above: Order Comment: Speci men Type: BLOOD SPECIMENOrdering Facility: [facility] Address: [address] [place] [address] Performed By: #### 5 7021-8 ####[facility]ITALNCA [id number] [place] [address] [place] Erythrocyte distribution width (RBC) [Ratio] 20.7 % High 11.5-15.0 [facility] Comment on above: Order Comment: Speci men Type: BLOOD SPECIMENOrdering Facility: [facility] Address: [address] [place] [address] Performed By: #### 5 7021-8 ####[facility] SHALONDAWNCLIA [id number] [place] [address] [place] Hematocrit (Bld) [Volume fraction] 35.0 % Low 36.0-46.0 [facility] Comment on above: Order Comment: Speci men Type: BLOOD SPECIMENOrdering Facility: [facility] Address: [address] [place] [address] Performed By: #### 5 7021-8 ####[facility] [id number] [place] [address] [place] Hemoglobin (Bld) [Mass/Vol] 11.2 g/dL Low 11.5-15.5 [facility] Comment on above: Order Comment: Speci men Type: BLOOD SPECIMENOrdering Facility: [facility] Address: [address] [place] [address] Performed By: #### 5 7021-8 ####[facility] [id number] [place] [address] [place] Immature granulocytes (Bld) [#/Vol] 0.03 10*3/uL Normal <0.10 [facility] Comment on above: Order Comment: Speci men Type: BLOOD SPECIMENOrdering Facility: [facility] Address: [address] [place] [address] Performed By: #### 5 7021-8 ####[facility] [id number] [place] [address] [place] Immature granulocytes/100 WBC (Bld) 0.6 % Normal [facility] Comment on above: Order Comment: Speci men Type: BLOOD SPECIMENOrdering Facility: [facility] Address: [address] [place] [address] Performed By: #### 5 7021-8 ####[facility]ITALNCLI [id number] [place] [address] [place] Lymphocytes (Bld) [#/Vol] 0.24 10*3/uL Low 1.00-4.00 [facility] Comment on above: Order Comment: Speci men Type: BLOOD SPECIMENOrdering Facility: [facility] Address: [address] [place] [address] Performed By: #### 5 7021-8 ####[facility] [id number] [place] [address] [place] Lymphocytes/100 WBC (Bld) 5.0 % Normal [facility] Comment on above: Order Comment: Speci men Type: BLOOD SPECIMENOrdering Facility: [facility] Address: [address] [place] [address] Performed By: #### 5 7021-8 ####[facility] [id number] [place] [address] [place] MCH (RBC) [Entitic mass] 28.9 pg Normal 26.0-34.0 [facility] Comment on above: Order Comment: Speci men Type: BLOOD SPECIMENOrdering Facility: [facility] Address: [address] [place] [address] Performed By: #### 5 7021-8 ####[facility] [id number] [place] [address] [place] MCHC (RBC) [Mass/Vol] 32.0 g/dL Normal 30.5-36.0 [facility] Comment on above: Order Comment: Speci men Type: BLOOD SPECIMENOrdering Facility: [facility] Address: [address] [place] [address] Performed By: #### 5 7021-8 ####[facility]ITALNCLI [id number] [place] [address] [place] MCV (RBC) [Entitic vol] 90.2 fL Normal 80.0-100.0 [facility] Comment on above: Order Comment: Speci men Type: BLOOD SPECIMENOrdering Facility: [facility] Address: [address] [place] [address] Performed By: #### 5 7021-8 ####[facility] [id number] [place] [address] [place] Monocytes (Bld) [#/Vol] 0.63 10*3/uL Normal <0.87 [facility] Comment on above: Order Comment: Speci men Type: BLOOD SPECIMENOrdering Facility: [facility] Address: [address] [place] [address] Performed By: #### 5 7021-8 ####[facility] [id number] [place] [address] [place] Monocytes/100 WBC (Bld) 13.1 % Normal C [facility] Comment on above: Order Comment: Speci men Type: BLOOD SPECIMENOrdering Facility: [facility] Address: [address] [place] [address] Performed By: #### 5 7021-8 ####[facility] [id number] [place] [address] [place] Neutrophils (Bld) [#/Vol] 3.65 10*3/uL Normal 1.45-7.50 [facility] Comment on above: Order Comment: Speci men Type: BLOOD SPECIMENOrdering Facility: [facility] Address: [address] [place] [address] Performed By: #### 5 7021-8 ####[facility] [id number] [place] [address] [place] Neutrophils/100 WBC (Bld) 76.0 % Normal [facility] Comment on above: Order Comment: Speci men Type: BLOOD SPECIMENOrdering Facility: [facility] Address: [address] [place] [address] Performed By: #### 5 7021-8 ####[facility]ITALNCLIA [id number] [place] [address] [place] Nucleated RBC (Bld) [#/Vol] 10*3/uL Normal <0.01 [facility] Comment on above: Order Comment: Speci men Type: BLOOD SPECIMENOrdering Facility: [facility] Address: [address] [place] [address] Performed By: #### 5 7021-8 ####[facility] [id number] [place] [address] [place] Nucleated RBC/100 WBC (Bld) [Ratio] 0.0 /100 WBC Normal [facility] Comment on above: Order Comment: Speci men Type: BLOOD SPECIMENOrdering Facility: [facility] Address: [address] [place] [address] Performed By: #### 5 7021-8 ####[facility]ITALNCLIA [id number] [place] [address] [place] Platelet mean volume (Bld) [Entitic vol] 10.0 fL Normal 9.0-12.7 [facility] Comment on above: Order Comment: Speci men Type: BLOOD SPECIMENOrdering Facility: [facility] Address: [address] [place] [address] Performed By: #### 5 7021-8 ####[facility]ALL[facility] [id number] [place] [address] [place] Platelets (Bld) [#/Vol] 194 10*3/uL Normal 150-400 [facility] Comment on above: Order Comment: Speci men Type: BLOOD SPECIMENOrdering Facility: [facility] Address: [address] [place] [address] Performed By: #### 5 7021-8 ####[facility]ITALNCLI [id number] [place] [address] [place] RBC (Bld) [#/Vol] 3.88 10*6/uL Low 3.90-5.20 [facility] Comment on above: Order Comment: Speci men Type: BLOOD SPECIMENOrdering Facility: [facility] Address: [address] [place] [address] Performed By: #### 5 7021-8 ####[facility] RIOGBERTO ALYSSAKEENENCLIA [id number] [place] [address] [place] WBC (Bld) [#/Vol] 4.80 10*3/uL Normal 3.70-11.00 [facility] Comment on above: Order Comment: Speci men Type: BLOOD SPECIMENOrdering Facility: [facility] Address: [address] [place] [address] Performed By: #### 5 7021-8 ####[facility] RIGOBERTO ALYSSAKEENENCLIA [id number] [place] [address] [place] CNOVSPon 11-30-2024 CNOVSP Normal [facility] CNPNon 11-30-2024 CNPN Telephone (LYN) -------- MARIMAR WANG ([id number]) 1960 F Date Time Provider Department 11/30/24 [...] Date Reviewed: 11/30/2024 Reviewed by: Delvin Ron APRN.FOLDER TIER - Fully Assessed Reason for Visit: Appointment [...] by mouth two times a day. - kblzyvooimOUBOR-xddqwh-h idocaine (BMX 1:1:1) 1:1:1 liqd Take 10 [...] 80 mg by mouth once daily. - scdqup-xewjvkkx-nhcylhi (CREON 36) 36,000-114,000- 180,000 unit delayed release [...] of Breat (more content not included)... Normal [facility] CNPN Normal [facility] Comprehensive metabolic 2000 panelOrdered By: Cyndie Zhou on 11-30-2024 Albumin [Mass/Vol] 3.5 g/dL Low 3.9 - 4.9 g/dL [facility] ALP [Catalytic activity/Vol] 73 U/L 34 - 123 U/L [facility] ALT [Catalytic activity/Vol] 10 U/L 7 - 38 U/L [facility] Anion gap [Moles/Vol] 9 mmol/L 8 - 15 mmol/L [facility] AST [Catalytic activity/Vol] 18 U/L 13 - 35 U/L [facility] Bilirubin [Mass/Vol] 0.2 mg/dL 0.2 - 1 .3 mg/dL [facility] Calcium [Mass/Vol] 9.2 mg/dL 8.5 - 10. 2 mg/dL [facility] Chloride [Moles/Vol] 98 mmol/L 98 - 10 7 mmol/L [facility] CO2 [Moles/Vol] 25 mmol/L 22 - 30 mmol/L [facility] Creatinine [Mass/Vol] 0.63 mg/dL 0.58 - 0.96 mg/dL [facility] GFR/1.73 sq M.predicted among non-blacks MDRD (S/P/Bld) [Vol rate/Area] 99 mL/min/{1.73_m2} - PINF [facility] Comment on above: Estimated Glomerular Filtration Rate [...] 104 mg/dL High 74 - 99 mg/dL [facility] Comment on above: The [place] Diab[employer] Association (ADA) provides guidance for [...] Standards of Medical Care in Diabetes 2016, [place] [employer]. Diabetes Care. 2016.39(Suppl 1). Interpretation and review of laboratory results Abnormal [facility] Potassium [Moles/Vol] 4.4 mmol/L 3.7 - 5.1 mmol/L [facility] Protein [Mass/Vol] 6.4 g/dL 6.3 - 8.0 g/dL [facility] Sodium [Moles/Vol] 132 mmol/L Low 136 - 144 mmol/L [facility] Urea nitrogen [Mass/Vol] 8 mg/dL 7 - 21 mg/dL [facility] Comprehensive metabolic 2000 panelon 11-30-2024 Albumin [Mass/Vol] 3.5 g/dL Low 3.9-4.9 [facility] Comment on above: Order Comment: Speci men Type: BLOOD SPECIMENOrdering Facility: [facility] Address: [address] [place] [address] Performed By: #### 2 4323-8 ####[facility] [id number] [place] [address] [place] ALP [Catalytic activity/Vol] 73 U/L Normal 34-123 [facility] Comment on above: Order Comment: Speci men Type: BLOOD SPECIMENOrdering Facility: [facility] Address: [address] [place], [place] [address] Performed By: #### 2 4323-8 ####[facility] HOSPITALLI [id number] [place] [address] [place] ALT [Catalytic activity/Vol] 10 U/L Normal 7-38 [facility] Comment on above: Order Comment: Speci men Type: BLOOD SPECIMENOrdering Facility: [facility] Address: [address] [place] [address] Performed By: #### 2 4323-8 ####[facility] RIGOBERTO MILLTOWNCLIA [id number] [place] [address] [place] Anion gap [Moles/Vol] 9 mmol/L Normal 8-15 [facility] Comment on above: Order Comment: Speci men Type: BLOOD SPECIMENOrdering Facility: [facility] Address: [address] [place] [address] Performed By: #### 2 4323-8 ####[facility] CHILDRENWNCLIA [id number] [place] [address] [place] AST [Catalytic activity/Vol] 18 U/L Normal 13-35 [facility] Comment on above: Order Comment: Speci men Type: BLOOD SPECIMENOrdering Facility: [facility] Address: [address] [place] [address] Performed By: #### 2 4323-8 ####[facility] HOSPITALNCLIA [id number] [place] [address] [place] Bilirubin [Mass/Vol] 0.2 mg/dL Normal 0.2-1.3 [facility] Comment on above: Order Comment: Speci men Type: BLOOD SPECIMENOrdering Facility: [facility] Address: [address] [place] [address] Performed By: #### 2 4323-8 ####[facility] MILLWNCLIA [id number] [place] [address] [place] Calcium [Mass/Vol] 9.2 mg/dL Normal 8.5-10.2 [facility] Comment on above: Order Comment: Speci men Type: BLOOD SPECIMENOrdering Facility: [facility] Address: [address] [place] [address] Performed By: #### 2 4323-8 ####[facility] ALYSSAJamirNCTIFFANIA [id number] [place] [address] [place] Chloride [Moles/Vol] 98 mmol/L Normal 98-107 [facility] Comment on above: Order Comment: Speci men Type: BLOOD SPECIMENOrdering Facility: [facility] Address: [address] [place] [address] Performed By: #### 2 4323-8 ####[facility] HOSPITALNCA [id number] [place] [address] [place] CO2 [Moles/Vol] 25 mmol/L Normal 22-30 [facility] Comment on above: Order Comment: Speci men Type: BLOOD SPECIMENOrdering Facility: [facility] Address: [address] [place] [address] Performed By: #### 2 4323-8 ####[facility] HOSPITALNCLIA [id number] [place] [address] [place] Creatinine [Mass/Vol] 0.63 mg/dL Normal 0.58-0.96 [facility] Comment on above: Order Comment: Speci men Type: BLOOD SPECIMENOrdering Facility: [facility] Address: [address] [place] [address] Performed By: #### 2 4323-8 ####[facility] HOSPITALNCLIA [id number] [place] [address] [place] Creatinine and Glomerular filtration rate.predicted panel (S/P/Bld) 99 mL/min/1.73m??? Normal >=60 [facility] Comment on above: Order Comment: Speci men Type: BLOOD SPECIMENOrdering Facility: [facility] Address: [address] [place] [address] Result Comment: Sonia mated Glomerular Filtration Rate [...] actual GFR. Performed By: #### 2 4323-8 ####[facility] DORAL [id number] [place] [address] [place] Glucose [Mass/Vol] 104 mg/dL High 74-99 [facility] Comment on above: Order Comment: Mindy mcfarlane Type: BLOOD SPECIMENOrdering Facility: [facility] Address: [address] [place] [address] Result Comment: The [place] [employer] (ADA) provides guidance for cutoff [...] Standards of Medical Care in Diabetes 2016, [place] [employer]. Diabetes Care. 2016.39(Suppl 1). Performed By: #### 2 4323-8 ####[facility]PITALA [id number] [place] [address] [place] Potassium [Moles/Vol] 4.4 mmol/L Normal 3.7-5.1 [facility] Comment on above: Order Comment: Mindy mcfarlane Type: BLOOD SPECIMENOrdering Facility: [facility] Address: [address] [place] [address] Performed By: #### 2 4323-8 ####[facility] DORAL [id number] [place] [address] [place] Protein [Mass/Vol] 6.4 g/dL Normal 6.3-8.0 [facility] Comment on above: Order Comment: Speci men Type: BLOOD SPECIMENOrdering Facility: [facility] Address: [address] [place] [address] Performed By: #### 2 4323-8 ####[facility] HOSPITALHAMLETA [id number] [place] [address] [place] Sodium [Moles/Vol] 132 mmol/L Low 136-144 [facility] Comment on above: Order Comment: Speci men Type: BLOOD SPECIMENOrdering Facility: [facility] Address: [address] [place] [address] Performed By: #### 2 4323-8 ####[facility] HOSPITALZEVFroy [id number] [place] [address] [place] Urea nitrogen [Mass/Vol] 8 mg/dL Normal 7-21 [facility] Comment on above: Order Comment: Speci men Type: BLOOD SPECIMENOrdering Facility: [facility] Address: [address] [place] [address] Performed By: #### 2 4323-8 ####[facility]ITALNCLIA [id number] [place] [address] [place] CBC W Auto Differential pane l (Bld)on 11-23-2024 Basophils (Bld) [#/Vol] 0.08 10*3/uL Normal <0.11 [facility] Comment on above: Order Comment: Speci men Type: BLOOD SPECIMENOrdering Facility: [facility] Address: [address] [place] [address] Performed By: #### 5 7021-8 ####[facility] HOSPITALLIA [id number] [place] [address] [place] Basophils/100 WBC (Bld) 2.1 % [facility] Comment on above: Order Comment: Speci men Type: BLOOD SPECIMENOrdering Facility: [facility] Address: [address] [place] [address] Performed By: #### 5 7021-8 ####[facility] HOSPITALHAMLET [id number] [place] [address] [place] Differential cell count method Nom (Bld) Auto Normal [facility] Comment on above: Order Comment: Speci men Type: BLOOD SPECIMENOrdering Facility: [facility] Address: [address] [place] [address] Performed By: #### 5 7021-8 ####[facility] DORAL [id number] [place] [address] [place] Eosinophils (Bld) [#/Vol] 0.07 10*3/uL Normal <0.46 [facility] Comment on above: Order Comment: Speci men Type: BLOOD SPECIMENOrdering Facility: [facility] Address: [address] [place] [address] Performed By: #### 5 7021-8 ####[facility] DORAL [id number] [place] [address] [place] Eosinophils/100 WBC (Bld) 1.8 % Normal [facility] Comment on above: Order Comment: Speci men Type: BLOOD SPECIMENOrdering Facility: [facility] Address: [address] [place] [address] Performed By: #### 5 7021-8 ####[facility] D[facility] [id number] [place] [address] [place] Erythrocyte distribution width (RBC) [Ratio] 21.4 % High 11.5-15.0 [facility] Comment on above: Order Comment: Speci men Type: BLOOD SPECIMENOrdering Facility: [facility] Address: [address] [place] [address] Performed By: #### 5 7021-8 ####[facility] HOSPITALNCLIA [id number] [place] [address] [place] Hematocrit (Bld) [Volume fraction] 33.5 % Low 36.0-46.0 [facility] Comment on above: Order Comment: Speci men Type: BLOOD SPECIMENOrdering Facility: [facility] Address: [address] [place] [address] Performed By: #### 5 7021-8 ####[facility] HOSPITALTIFFANIA [id number] [place] [address] [place] Hemoglobin (Bld) [Mass/Vol] 10.8 g/dL Low 11.5-15.5 [facility] Comment on above: Order Comment: Speci men Type: BLOOD SPECIMENOrdering Facility: [facility] Address: [address] [place] [address] Performed By: #### 5 7021-8 ####[facility] [id number] [place] [address] [place] Immature granulocytes (Bld) [#/Vol] 0.06 10*3/uL Normal <0.10 [facility] Comment on above: Order Comment: Speci men Type: BLOOD SPECIMENOrdering Facility: [facility] Address: [address] [place] [address] Performed By: #### 5 7021-8 ####[facility] HOSPITALLIA [id number] [place] [address] [place] Immature granulocytes/100 WBC (Bld) 1.6 % Normal [facility] Comment on above: Order Comment: Speci men Type: BLOOD SPECIMENOrdering Facility: [facility] Address: [address] [place] [address] Performed By: #### 5 7021-8 ####[facility] H[facility]PITALNCLIA [id number] [place] [address] [place] Lymphocytes (Bld) [#/Vol] 0.21 10*3/uL Low 1.00-4.00 [facility] Comment on above: Order Comment: Speci men Type: BLOOD SPECIMENOrdering Facility: [facility] Address: [address] [place] [address] Performed By: #### 5 7021-8 ####[facility] DORAL [id number] [address] [place] Lymphocytes/100 WBC (Bld) 5.5 % Normal [facility] Comment on above: Order Comment: Speci men Type: BLOOD SPECIMENOrdering Facility: [facility] Address: [address] [place] [address] Performed By: #### 5 7021-8 ####[facility]ITALNCSEVI[facility] [id number] [place] [address] [place] MCH (RBC) [Entitic mass] 28.6 pg Normal 26.0-34.0 [facility] Comment on above: Order Comment: Speci men Type: BLOOD SPECIMENOrdering Facility: [facility] Address: [address] [place] [address] Performed By: #### 5 7021-8 ####[facility] D[facility]AL [id number] [place] [address] [place] MCHC (RBC) [Mass/Vol] 32.2 g/dL Normal 30.5-36.0 [facility] Comment on above: Order Comment: Speci men Type: BLOOD SPECIMENOrdering Facility: [facility] Address: [address] [place] [address] Performed By: #### 5 7021-8 ####[facility] HOSPITALNCLI [id number] [address] [place] MCV (RBC) [Entitic vol] 88.9 fL Normal 80.0-100.0 C [facility] Comment on above: Order Comment: Speci men Type: BLOOD SPECIMENOrdering Facility: [facility] Address: [address] [place] [address] Performed By: #### 5 7021-8 ####[facility] ALYSSAJAZMYN [id number] [place] [address] [place] Monocytes (Bld) [#/Vol] 0.62 10*3/uL Normal <0.87 [facility] Comment on above: Order Comment: Speci men Type: BLOOD SPECIMENOrdering Facility: [facility] Address: [address] [place] [address] Performed By: #### 5 7021-8 ####[facility] HOSPITALA [id number] [place] [address] [place] Monocytes/100 WBC (Bld) 16.2 % Normal C [facility] Comment on above: Order Comment: Speci men Type: BLOOD SPECIMENOrdering Facility: [facility] Address: [address] [place] [address] Performed By: #### 5 7021-8 ####[facility] D[facility] [id number] [place] [address] [place] Neutrophils (Bld) [#/Vol] 2.78 10*3/uL Normal 1.45-7.50 [facility] Comment on above: Order Comment: Speci men Type: BLOOD SPECIMENOrdering Facility: [facility] Address: [address] [place] [address] Performed By: #### 5 7021-8 ####[facility] HOSPITALLIA [id number] [place] [address] [place] Neutrophils/100 WBC (Bld) 72.8 % Normal [facility] Comment on above: Order Comment: Speci men Type: BLOOD SPECIMENOrdering Facility: [facility] Address: [address] [place] [address] Performed By: #### 5 7021-8 ####[facility]OSPITALNCLIA [id number] [place] [address] [place] Nucleated RBC (Bld) [#/Vol] 10*3/uL Normal <0.01 [facility] Comment on above: Order Comment: Speci men Type: BLOOD SPECIMENOrdering Facility: [facility] Address: [address] [place] [address] Performed By: #### 5 7021-8 ####[facility] D[facility] [id number] [place] [address] [place] Nucleated RBC/100 WBC (Bld) [Ratio] 0.0 /100 WBC Normal [facility] Comment on above: Order Comment: Speci men Type: BLOOD SPECIMENOrdering Facility: [facility] Address: [address] [place] [address] Performed By: #### 5 7021-8 ####[facility]ITALNCSEVI[facility] [id number] [place] [address] [place] Platelet mean volume (Bld) [Entitic vol] 9.9 fL Normal 9.0-12.7 [facility] Comment on above: Order Comment: Speci men Type: BLOOD SPECIMENOrdering Facility: [facility] Address: [address] [place] [address] Performed By: #### 5 7021-8 ####[facility]OSPITALA [id number] [place] [address] [place] Platelets (Bld) [#/Vol] 210 10*3/uL Normal 150-400 [facility] Comment on above: Order Comment: Speci men Type: BLOOD SPECIMENOrdering Facility: [facility] Address: [address] [place] [address] Performed By: #### 5 7021-8 ####[facility]ITALNCSEVI[facility] [id number] [place] [id number] [place] RBC (Bld) [#/Vol] 3.77 10*6/uL Low 3.90-5.20 [facility] Comment on above: Order Comment: Speci men Type: BLOOD SPECIMENOrdering Facility: [facility] Address: [address] [place] [address] Performed By: #### 5 7021-8 ####[facility] ALYSSAJAZMYN [id number] [place] [address] [place] WBC (Bld) [#/Vol] 3.82 10*3/uL Normal 3.70-11.00 [facility] Comment on above: Order Comment: Speci men Type: BLOOD SPECIMENOrdering Facility: [facility] Address: [address] [place] [address] Performed By: #### 5 7021-8 ####[facility] HOSPITALNICOLE [id number] [place] [address] [place] Comprehensive metabolic 2000 panelon 11-23-2024 Albumin [Mass/Vol] 3.6 g/dL Low 3.9-4.9 [facility] Comment on above: Order Comment: Speci men Type: BLOOD SPECIMENOrdering Facility: [facility] Address: [address] [place] [address] Performed By: #### 2 4323-8 ####[facility] FOR CHILDRENJAZMYN [id number] [place] [address] [place] ALP [Catalytic activity/Vol] 68 U/L Normal 34-123 [facility] Comment on above: Order Comment: Speci men Type: BLOOD SPECIMENOrdering Facility: [facility] Address: [address] [place] [address] Performed By: #### 2 4323-8 ####[facility] CHILDRENWNCLIA [id number] [place] [address] [place] ALT [Catalytic activity/Vol] 11 U/L Normal 7-38 [facility] Comment on above: Order Comment: Speci men Type: BLOOD SPECIMENOrdering Facility: [facility] Address: [address] [place] [address] Performed By: #### 2 4323-8 ####[facility]ILDRENWNCLIA [id number] [place] [address] [place] Anion gap [Moles/Vol] 9 mmol/L Normal 8-15 [facility] Comment on above: Order Comment: Speci men Type: BLOOD SPECIMENOrdering Facility: [facility] Address: [address] [place] [address] Performed By: #### 2 4323-8 ####[facility]ITALNCLIA [id number] [place] [address] [place] AST [Catalytic activity/Vol] 17 U/L Normal 13-35 [facility] Comment on above: Order Comment: Speci men Type: BLOOD SPECIMENOrdering Facility: [facility] Address: [address] [place] [address] Performed By: #### 2 4323-8 ####[facility] HOSPITALA [id number] [place] [address] [place] Bilirubin [Mass/Vol] 0.2 mg/dL Normal 0.2-1.3 [facility] Comment on above: Order Comment: Speci men Type: BLOOD SPECIMENOrdering Facility: [facility] Address: [address] [place] [address] Performed By: #### 2 4323-8 ####[facility]ITALNCLIA [id number] [place] [address] [place] Calcium [Mass/Vol] 9.2 mg/dL Normal 8.5-10.2 [facility] Comment on above: Order Comment: Speci men Type: BLOOD SPECIMENOrdering Facility: [facility] Address: [address] [place] [address] Performed By: #### 2 4323-8 ####[facility] MILLTOWNCLIA [id number] [place] [address] [place] Chloride [Moles/Vol] 99 mmol/L Normal 98-107 [facility] Comment on above: Order Comment: Speci men Type: BLOOD SPECIMENOrdering Facility: [facility] Address: [address] [place] [address] Performed By: #### 2 4323-8 ####[facility] HOSPITALLIA [id number] [place] [address] [place] CO2 [Moles/Vol] 25 mmol/L Normal 22-30 [facility] Comment on above: Order Comment: Speci men Type: BLOOD SPECIMENOrdering Facility: [facility] Address: [address] [place] [address] Performed By: #### 2 4323-8 ####[facility] HOSPITALLIA [id number] [place] [address] [place] Creatinine [Mass/Vol] 0.60 mg/dL Normal 0.58-0.96 [facility] Comment on above: Order Comment: Speci men Type: BLOOD SPECIMENOrdering Facility: [facility] Address: [address] [place] [address] Performed By: #### 2 4323-8 ####[facility] HOSPITALLIA [id number] [address] Creatinine and Glomerular filtration rate.predicted panel (S/P/Bld) 100 mL/min/1.73m??? Normal >=60 [facility] Comment on above: Order Comment: Speci men Type: BLOOD SPECIMENOrdering Facility: [facility] Address: [address] [place] [address] Result Comment: Sonia mated Glomerular Filtration Rate [...] GFR. Performed By: #### 2 4323-8 ####[facility] CHILDRENWZEVLIFroy [id number] [place] [address] [place] Glucose [Mass/Vol] 99 mg/dL Normal 74-99 [facility] Comment on above: Order Comment: Speci men Type: BLOOD SPECIMENOrdering Facility: [facility] Address: [address] [place] [place] [id number] Result Comment: The [place] [employer] (ADA) provides guidance for cutoff [...] Standards of Medical Care in Diabetes 2016, [place] [employer]. Diabetes Care. 2016.39(Suppl 1). Performed By: #### 2 4323-8 ####[facility]ITALA [id number] [place] [address] [place] Potassium [Moles/Vol] 4.1 mmol/L Normal 3.7-5.1 [facility] Comment on above: Order Comment: Speci men Type: BLOOD SPECIMENOrdering Facility: [facility] Address: [address] [place] [address] Performed By: #### 2 4323-8 ####[facility]ITALNCLIA [id number] [place] [address] [place] Protein [Mass/Vol] 6.4 g/dL Normal 6.3-8.0 [facility] Comment on above: Order Comment: Speci men Type: BLOOD SPECIMENOrdering Facility: [facility] Address: [address] [place] [address] Performed By: #### 2 4323-8 ####[facility] CHILDRENWORLIA [id number] [place] [address] [place] Sodium [Moles/Vol] 133 mmol/L Low 136-144 [facility] Comment on above: Order Comment: Speci men Type: BLOOD SPECIMENOrdering Facility: [facility] Address: [address] [place] [address] Performed By: #### 2 4323-8 ####[facility] HOSPITALLIA [id number] [place] [address] [place] Urea nitrogen [Mass/Vol] 5 mg/dL Low 7-21 [facility] Comment on above: Order Comment: Speci men Type: BLOOD SPECIMENOrdering Facility: [facility] Address: [address] [place] [address] Performed By: #### 2 4323-8 ####[facility]ITALA [id number] [place] [address] [place] CNPNon 11-19-2024 CNPN Normal [facility] CBC W Auto Differential pane l (Bld)on 11-16-2024 Basophils (Bld) [#/Vol] 0.05 10*3/uL [facility] Basophils/100 WBC (Bld) 1.1 % [facility] Differential cell count method Nom (Bld) Auto [facility] Eosinophils (Bld) [#/Vol] 0.16 10*3/uL [facility] Eosinophils/100 WBC (Bld) 3.4 % [facility] Erythrocyte distribution width (RBC) [Ratio] 21.2 % High 11.5 - 15.0 % [facility] Hematocrit (Bld) [Volume fraction] 31.9 % Low 36.0 - 46.0 % [facility] Hemoglobin (Bld) [Mass/Vol] 10.2 g/dL Low 11.5 - 15.5 g/dL [facility] Immature granulocytes (Bld) [#/Vol] 0.03 10*3/uL [facility] Immature granulocytes/100 WBC (Bld) 0.6 % [facility] Interpretation and review of laboratory results Abnormal [facility] Lymphocytes (Bld) [#/Vol] 0.15 10*3/uL Low [facility] Lymphocytes/100 WBC (Bld) 3.2 % [facility] MCH (RBC) [Entitic mass] 28.2 pg 26.0 - 34.0 pg [facility] MCHC (RBC) [Mass/Vol] 32 g/dL 30.5 - 36.0 g/dL [facility] MCV (RBC) [Entitic vol] 88.1 fL 80.0 - 100.0 fL [facility] Monocytes (Bld) [#/Vol] 0.72 10*3/uL [facility] Monocytes/100 WBC (Bld) 15.5 % [facility] Neutrophils (Bld) [#/Vol] 3.55 10*3/uL [facility] Neutrophils/100 WBC (Bld) 76.2 % [facility] Nucleated RBC (Bld) [#/Vol] [facility] Nucleated RBC/100 WBC (Bld) [Ratio] 0 % /100 WBC [facility] Platelet mean volume (Bld) [Entitic vol] 9.3 fL 9.0 - 12.7 fL [facility] Platelets (Bld) [#/Vol] 173 10*3/uL [facility] RBC (Bld) [#/Vol] 3.62 10*6/uL Low 3.90 - 5.2 0 m/uL [facility] WBC (Bld) [#/Vol] 4.66 10*3/uL [facility] Basophils (Bld) [#/Vol] 0.05 10*3/uL Normal <0.11 [facility] Comment on above: Order Comment: Speci men Type: BLOOD SPECIMENOrdering Facility: [facility] Address: [address] [place] [address] Performed By: #### 5 7021-8 ####[facility] RIGOBERTO WOOD [id number] [place] [address] [place] Basophils/100 WBC (Bld) 1.1 % Normal [facility] Comment on above: Order Comment: Speci men Type: BLOOD SPECIMENOrdering Facility: [facility] Address: [address] [place] [address] Performed By: #### 5 7021-8 ####[facility] DORAL [id number] [place] [address] [place] Differential cell count method Nom (Bld) Auto Normal [facility] Comment on above: Order Comment: Speci men Type: BLOOD SPECIMENOrdering Facility: [facility] Address: [address] [place] [address] Performed By: #### 5 7021-8 ####[facility] D[facility] [id number] [place] [address] [place] Eosinophils (Bld) [#/Vol] 0.16 10*3/uL Normal <0.46 [facility] Comment on above: Order Comment: Speci men Type: BLOOD SPECIMENOrdering Facility: [facility] Address: [address] [place] [address] Performed By: #### 5 7021-8 ####[facility] [id number] [place] [address] [place] Eosinophils/100 WBC (Bld) 3.4 % Normal [facility] Comment on above: Order Comment: Speci men Type: BLOOD SPECIMENOrdering Facility: [facility] Address: [address] [place] [address] Performed By: #### 5 7021-8 ####[facility] [id number] [place] [address] [place] Erythrocyte distribution width (RBC) [Ratio] 21.2 % High 11.5-15.0 [facility] Comment on above: Order Comment: Speci men Type: BLOOD SPECIMENOrdering Facility: [facility] Address: [address] [place] [address] Performed By: #### 5 7021-8 ####[facility] ALYSSAJAZMYN [id number] [place] [address] [place] Hematocrit (Bld) [Volume fraction] 31.9 % Low 36.0-46.0 [facility] Comment on above: Order Comment: Speci men Type: BLOOD SPECIMENOrdering Facility: [facility] Address: [address] [place] [address] Performed By: #### 5 7021-8 ####[facility] HOSPITALNCTIFFANI [id number] [place] [address] [place] Hemoglobin (Bld) [Mass/Vol] 10.2 g/dL Low 11.5-15.5 [facility] Comment on above: Order Comment: Speci men Type: BLOOD SPECIMENOrdering Facility: [facility] Address: [address] [place] [address] Performed By: #### 5 7021-8 ####[facility] HOSPITALZEVFroy [id number] [place] [address] [place] Immature granulocytes (Bld) [#/Vol] 0.03 10*3/uL Normal <0.10 [facility] Comment on above: Order Comment: Speci men Type: BLOOD SPECIMENOrdering Facility: [facility] Address: [address] [place] [address] Performed By: #### 5 7021-8 ####[facility] HOSPITALNCLIA [id number] [place] [address] [place] Immature granulocytes/100 WBC (Bld) 0.6 % Normal [facility] Comment on above: Order Comment: Speci men Type: BLOOD SPECIMENOrdering Facility: [facility] Address: [address] [place] [address] Performed By: #### 5 7021-8 ####[facility]ILDRENWNCLIA [id number] [place] [address] [place] Lymphocytes (Bld) [#/Vol] 0.15 10*3/uL Low 1.00-4.00 [facility] Comment on above: Order Comment: Speci men Type: BLOOD SPECIMENOrdering Facility: [facility] Address: [address] [place] [address] Performed By: #### 5 7021-8 ####[facility]ITALA [id number] [place] [address] [place] Lymphocytes/100 WBC (Bld) 3.2 % Normal [facility] Comment on above: Order Comment: Speci men Type: BLOOD SPECIMENOrdering Facility: [facility] Address: [address] [place] [address] Performed By: #### 5 7021-8 ####[facility] DORAL [id number] [place] [address] [place] MCH (RBC) [Entitic mass] 28.2 pg Normal 26.0-34.0 [facility] Comment on above: Order Comment: Speci men Type: BLOOD SPECIMENOrdering Facility: [facility] Address: [address] [place] [address] Performed By: #### 5 7021-8 ####[facility] HOSPITALA [id number] [place] [address] [place] MCHC (RBC) [Mass/Vol] 32.0 g/dL Normal 30.5-36.0 [facility] Comment on above: Order Comment: Speci men Type: BLOOD SPECIMENOrdering Facility: [facility] Address: [address] [place] [address] Performed By: #### 5 7021-8 ####[facility] HOSPITALNCLI [id number] [place] [address] [place] MCV (RBC) [Entitic vol] 88.1 fL Normal 80.0-100.0 [facility] Comment on above: Order Comment: Speci men Type: BLOOD SPECIMENOrdering Facility: [facility] Address: [address] [place] [address] Performed By: #### 5 7021-8 ####[facility] HOSPITALNCA [id number] [place] [address] [place] Monocytes (Bld) [#/Vol] 0.72 10*3/uL Normal <0.87 [facility] Comment on above: Order Comment: Speci men Type: BLOOD SPECIMENOrdering Facility: [facility] Address: [address] [place] [address] Performed By: #### 5 7021-8 ####[facility] HOSPITALNCA [id number] [place] [address] [place] Monocytes/100 WBC (Bld) 15.5 % Normal C [facility] Comment on above: Order Comment: Speci men Type: BLOOD SPECIMENOrdering Facility: [facility] Address: [address] [place] [address] Performed By: #### 5 7021-8 ####[facility] HOSPITALLIA [id number] [place] [address] [place] Neutrophils (Bld) [#/Vol] 3.55 10*3/uL Normal 1.45-7.50 [facility] Comment on above: Order Comment: Speci men Type: BLOOD SPECIMENOrdering Facility: [facility] Address: [address] [place] [address] Performed By: #### 5 7021-8 ####[facility] HOSPITALNCLIA [id number] [place] [address] [place] Neutrophils/100 WBC (Bld) 76.2 % Normal [facility] Comment on above: Order Comment: Speci men Type: BLOOD SPECIMENOrdering Facility: [facility] Address: [address] [place] [address] Performed By: #### 5 7021-8 ####[facility] HOSPITALNICOLE [id number] [place] [address] [place] Nucleated RBC (Bld) [#/Vol] 10*3/uL Normal <0.01 [facility] Comment on above: Order Comment: Speci men Type: BLOOD SPECIMENOrdering Facility: [facility] Address: [address] [place] [address] Performed By: #### 5 7021-8 ####[facility] DORAL [id number] [place] [address] [place] Nucleated RBC/100 WBC (Bld) [Ratio] 0.0 /100 WBC Normal [facility] Comment on above: Order Comment: Speci men Type: BLOOD SPECIMENOrdering Facility: [facility] Address: [address] [place] [address] Performed By: #### 5 7021-8 ####[facility] DORAL [id number] [place] [address] [place] Platelet mean volume (Bld) [Entitic vol] 9.3 fL Normal 9.0-12.7 [facility] Comment on above: Order Comment: Speci men Type: BLOOD SPECIMENOrdering Facility: [facility] Address: [address] [place] [address] Performed By: #### 5 7021-8 ####[facility] DORAL [id number] [place] [address] [place] Platelets (Bld) [#/Vol] 173 10*3/uL Normal 150-400 [facility] Comment on above: Order Comment: Speci men Type: BLOOD SPECIMENOrdering Facility: [facility] Address: [address] [place] [address] Performed By: #### 5 7021-8 ####[facility] HOSPITALNCLIA [id number] [place] [address] [place] RBC (Bld) [#/Vol] 3.62 10*6/uL Low 3.90-5.20 [facility] Comment on above: Order Comment: Speci men Type: BLOOD SPECIMENOrdering Facility: [facility] Address: [address] [place] [address] Performed By: #### 5 7021-8 ####[facility] HOSPITALNCLIA [id number] [place] [address] [place] WBC (Bld) [#/Vol] 4.66 10*3/uL Normal 3.70-11.00 [facility] Comment on above: Order Comment: Speci men Type: BLOOD SPECIMENOrdering Facility: [facility] Address: [address] [place] [address] Performed By: #### 5 7021-8 ####[facility]ITALNCLIA [id number] [place] [address] [place] CNCNPATEDon 11-16-2024 CNCNPATED Normal [facility] metabolic 2000 panelOrdered By: Cyndie Zhou on 11-16-2024 Albumin [Mass/Vol] 3.5 g/dL Low 3.9 - 4.9 g/dL [facility] ALP [Catalytic activity/Vol] 63 U/L 34 - 123 U/L [facility] ALT [Catalytic activity/Vol] 9 U/L 7 - 38 U/L [facility] Anion gap [Moles/Vol] 8 mmol/L 8 - 15 mmol/L [facility] AST [Catalytic activity/Vol] 16 U/L 13 - 35 U/L [facility] Bilirubin [Mass/Vol] 0.2 mg/dL 0.2 - 1 .3 mg/dL [facility] Calcium [Mass/Vol] 9.2 mg/dL 8.5 - 10. 2 mg/dL [facility] Chloride [Moles/Vol] 99 mmol/L 98 - 10 7 mmol/L [facility] CO2 [Moles/Vol] 24 mmol/L 22 - 30 mmol/L [facility] Creatinine [Mass/Vol] 0.65 mg/dL 0.58 - 0.96 mg/dL [facility] GFR/1.73 sq M.predicted among non-blacks MDRD (S/P/Bld) [Vol rate/Area] 98 mL/min/{1.73_m2} - PINF [facility] Comment on above: Estimated Glomerular Filtration Rate [...] 106 mg/dL High 74 - 99 mg/dL [facility] Comment on above: The [place] Diab[employer] Association (ADA) provides guidance for [...] Standards of Medical Care in Diabetes 2016, [place] [employer]. Diabetes Care. 2016.39(Suppl 1). Interpretation and review of laboratory results Abnormal [facility] Potassium [Moles/Vol] 4 mmol/L 3.7 - 5.1 mmol/L [facility] Protein [Mass/Vol] 6.4 g/dL 6.3 - 8.0 g/dL [facility] Sodium [Moles/Vol] 131 mmol/L Low 136 - 144 mmol/L [facility] Urea nitrogen [Mass/Vol] 12 mg/dL 7 - 21 mg/dL [facility] Comprehensive metabolic 2000 panelon 11-16-2024 Albumin [Mass/Vol] 3.5 g/dL Low 3.9-4.9 [facility] Comment on above: Order Comment: Speci men Type: BLOOD SPECIMENOrdering Facility: [facility] Address: [address] [place] [address] Performed By: #### 2 4323-8 ####[facility] ALYSSATOWNCLIA [id number] [place] [address] [place] ALP [Catalytic activity/Vol] 63 U/L Normal 34-123 [facility] Comment on above: Order Comment: Speci men Type: BLOOD SPECIMENOrdering Facility: [facility] Address: [address] [place] [address] Performed By: #### 2 4323-8 ####[facility] MILLTOWNCLIA [id number] [place] [address] [place] ALT [Catalytic activity/Vol] 9 U/L Normal 7-38 [facility] Comment on above: Order Comment: Speci men Type: BLOOD SPECIMENOrdering Facility: [facility] Address: [address] [place] [address] Performed By: #### 2 4323-8 ####[facility] CHILDRENWNCLIA [id number] [place] [address] [place] Anion gap [Moles/Vol] 8 mmol/L Normal 8-15 [facility] Comment on above: Order Comment: Speci men Type: BLOOD SPECIMENOrdering Facility: [facility] Address: [address] [place] [address] Performed By: #### 2 4323-8 ####[facility] MILLTOWNCLIA [id number] [place] [address] [place] AST [Catalytic activity/Vol] 16 U/L Normal 13-35 [facility] Comment on above: Order Comment: Speci men Type: BLOOD SPECIMENOrdering Facility: [facility] Address: [address] [place] [address] Performed By: #### 2 4323-8 ####[facility] MILLTOWNCLIA [id number] [place] [address] [place] Bilirubin [Mass/Vol] 0.2 mg/dL Normal 0.2-1.3 [facility] Comment on above: Order Comment: Speci men Type: BLOOD SPECIMENOrdering Facility: [facility] Address: [address] [place] [address] Performed By: #### 2 4323-8 ####[facility] MILLWNCLIA [id number] [place] [address] [place] Calcium [Mass/Vol] 9.2 mg/dL Normal 8.5-10.2 [facility] Comment on above: Order Comment: Speci men Type: BLOOD SPECIMENOrdering Facility: [facility] Address: [address] [place] [address] Performed By: #### 2 4323-8 ####[facility]ITALNCLIA [id number] [place] [address] [place] Chloride [Moles/Vol] 99 mmol/L Normal 98-107 [facility] Comment on above: Order Comment: Speci men Type: BLOOD SPECIMENOrdering Facility: [facility] Address: [address] [place] [address] Performed By: #### 2 4323-8 ####[facility] CHILDRENWNCLIA [id number] [place] [address] [place] CO2 [Moles/Vol] 24 mmol/L Normal 22-30 [facility] Comment on above: Order Comment: Speci men Type: BLOOD SPECIMENOrdering Facility: [facility] Address: [address] [place] [address] Performed By: #### 2 4323-8 ####[facility]ITALNCLIA [id number] [place] [address] [place] Creatinine [Mass/Vol] 0.65 mg/dL Normal 0.58-0.96 [facility] Comment on above: Order Comment: Mindy mcfarlane Type: BLOOD SPECIMENOrdering Facility: [facility] Address: [address] [place] [address] Performed By: #### 2 4323-8 ####[facility] DORAL [id number] [place] [address] [place] Creatinine and Glomerular filtration rate.predicted panel (S/P/Bld) 98 mL/min/1.73m??? Normal >=60 [facility] Comment on above: Order Comment: Mindy mcfarlane Type: BLOOD SPECIMENOrdering Facility: [facility] Address: [address] [place] [address] Result Comment: Sonia mated Glomerular Filtration Rate [...] actual GFR. Performed By: #### 2 4323-8 ####[facility] DORAL [id number] [place] [address] [place] Glucose [Mass/Vol] 106 mg/dL High 74-99 [facility] Comment on above: Order Comment: Mindy mcfarlane Type: BLOOD SPECIMENOrdering Facility: [facility] Address: [address] [place] [address] Result Comment: The [place] Diabetes Association (ADA) provides guidance for cutoff [...] Standards of Medical Care in Diabetes 2016, [place] [employer]. Diabetes Care. 2016.39(Suppl 1). Performed By: #### 2 4323-8 ####[facility] RIGOBERTO SHAHKEATONA [id number] [place] [address] [place] Potassium [Moles/Vol] 4.0 mmol/L Normal 3.7-5.1 [facility] Comment on above: Order Comment: Speci men Type: BLOOD SPECIMENOrdering Facility: [facility] Address: [address] [place] [address] Performed By: #### 2 4323-8 ####[facility] HOSPITALMICK [id number] [place] [address] [place] Protein [Mass/Vol] 6.4 g/dL Normal 6.3-8.0 [facility] Comment on above: Order Comment: Speci men Type: BLOOD SPECIMENOrdering Facility: [facility] Address: [address] [place] [address] Performed By: #### 2 4323-8 ####[facility] HOSPITALHAMLETA [id number] [place] [address] [place] Sodium [Moles/Vol] 131 mmol/L Low 136-144 [facility] Comment on above: Order Comment: Speci men Type: BLOOD SPECIMENOrdering Facility: [facility] Address: [address] [place] [address] Performed By: #### 2 4323-8 ####[facility] HOSPITALROBERTLIA [id number] [place] [address] [place] Urea nitrogen [Mass/Vol] 12 mg/dL Normal 7-21 [facility] Comment on above: Order Comment: Speci men Type: BLOOD SPECIMENOrdering Facility: [facility] Address: [address] [place] [address] Performed By: #### 2 4323-8 ####[facility] HOSPITALZEVSEVIER [facility] [id number] [place] [address] [place] CNOVon 11-10-2024 CNOV Normal [facility] CBC W Auto Differential pane l (Bld)on 11-09-2024 Basophils (Bld) [#/Vol] 0.03 10*3/uL [facility] Basophils/100 WBC (Bld) 1.1 % C [facility] Differential cell count method Nom (Bld) Auto [facility] Eosinophils (Bld) [#/Vol] 0.09 10*3/uL [facility] Eosinophils/100 WBC (Bld) 3.4 % [facility] Erythrocyte distribution width (RBC) [Ratio] 20.2 % High 11.5 - 15.0 % [facility] Hematocrit (Bld) [Volume fraction] 32.4 % Low 36.0 - 46.0 % [facility] Hemoglobin (Bld) [Mass/Vol] 10.6 g/dL Low 11.5 - 15.5 g/dL [facility] Immature granulocytes (Bld) [#/Vol] [facility] Immature granulocytes/100 WBC (Bld) 0.8 % [facility] Interpretation and review of laboratory results Abnormal [facility] Lymphocytes (Bld) [#/Vol] 0.17 10*3/uL Low [facility] Lymphocytes/100 WBC (Bld) 6.5 % [facility] MCH (RBC) [Entitic mass] 28.3 pg 26.0 - 34.0 pg [facility] MCHC (RBC) [Mass/Vol] 32.7 g/dL 30.5 - 36.0 g/dL [facility] MCV (RBC) [Entitic vol] 86.6 fL 80.0 - 100.0 fL [facility] Monocytes (Bld) [#/Vol] 0.25 10*3/uL [facility] Monocytes/100 WBC (Bld) 9.6 % C [facility] Neutrophils (Bld) [#/Vol] 2.05 10*3/uL [facility] Neutrophils/100 WBC (Bld) 78.6 % [facility] Nucleated RBC (Bld) [#/Vol] [facility] Nucleated RBC/100 WBC (Bld) [Ratio] 0 % /100 WBC [facility] Platelet mean volume (Bld) [Entitic vol] 9.9 fL 9.0 - 12.7 fL [facility] Platelets (Bld) [#/Vol] 219 10*3/uL [facility] RBC (Bld) [#/Vol] 3.74 10*6/uL Low 3.90 - 5.2 0 m/uL [facility] WBC (Bld) [#/Vol] 2.61 10*3/uL Low [facility] Basophils (Bld) [#/Vol] 0.03 10*3/uL Normal <0.11 [facility] Comment on above: Order Comment: Speci men Type: BLOOD SPECIMENOrdering Facility: [facility] Address: [address] [place] [address] Performed By: #### 5 7021-8 ####[facility] DORAL [id number] [place] [address] [place] Basophils/100 WBC (Bld) 1.1 % Normal C [facility] Comment on above: Order Comment: Speci men Type: BLOOD SPECIMENOrdering Facility: [facility] Address: [address] [place] [address] Performed By: #### 5 7021-8 ####[facility] DORAL [id number] [place] [address] [place] Differential cell count method Nom (Bld) Auto Normal [facility] Comment on above: Order Comment: Speci men Type: BLOOD SPECIMENOrdering Facility: [facility] Address: [address] [place] [address] Performed By: #### 5 7021-8 ####[facility] DORAL [id number] [place] [address] [place] Eosinophils (Bld) [#/Vol] 0.09 10*3/uL Normal <0.46 [facility] Comment on above: Order Comment: Speci men Type: BLOOD SPECIMENOrdering Facility: [facility] Address: [address] [place] [address] Performed By: #### 5 7021-8 ####[facility] MILLWNCLIA [id number] [place] [address] [place] Eosinophils/100 WBC (Bld) 3.4 % Normal [facility] Comment on above: Order Comment: Speci men Type: BLOOD SPECIMENOrdering Facility: [facility] Address: [address] [place] [address] Performed By: #### 5 7021-8 ####[facility] HOSPITALZEVLIA [id number] [place] [address] [place] Erythrocyte distribution width (RBC) [Ratio] 20.2 % High 11.5-15.0 [facility] Comment on above: Order Comment: Speci men Type: BLOOD SPECIMENOrdering Facility: [facility] Address: [address] [place] [address] Performed By: #### 5 7021-8 ####[facility] HOSPITALLIA [id number] [place] [address] [place] Hematocrit (Bld) [Volume fraction] 32.4 % Low 36.0-46.0 [facility] Comment on above: Order Comment: Speci men Type: BLOOD SPECIMENOrdering Facility: [facility] Address: [address] [place] [address] Performed By: #### 5 7021-8 ####[facility] CHILDRENWNCLIA [id number] [place] [address] [place] Hemoglobin (Bld) [Mass/Vol] 10.6 g/dL Low 11.5-15.5 [facility] Comment on above: Order Comment: Speci men Type: BLOOD SPECIMENOrdering Facility: [facility] Address: [address] [place] [address] Performed By: #### 5 7021-8 ####[facility]ITALNCLIA [id number] [place] [address] [place] Immature granulocytes (Bld) [#/Vol] 10*3/uL Normal <0.10 [facility] Comment on above: Order Comment: Speci men Type: BLOOD SPECIMENOrdering Facility: [facility] Address: [address] [place] [address] Performed By: #### 5 7021-8 ####[facility] HOSPITALLIA [id number] [place] [address] [place] Immature granulocytes/100 WBC (Bld) 0.8 % Normal [facility] Comment on above: Order Comment: Speci men Type: BLOOD SPECIMENOrdering Facility: [facility] Address: [address] [place] [address] Performed By: #### 5 7021-8 ####[facility]ITALNCLI [id number] [place] [address] [place] Lymphocytes (Bld) [#/Vol] 0.17 10*3/uL Low 1.00-4.00 [facility] Comment on above: Order Comment: Speci men Type: BLOOD SPECIMENOrdering Facility: [facility] Address: [address] [place] [address] Performed By: #### 5 7021-8 ####[facility] HOSPITALLIA [id number] [place] [address] [place] Lymphocytes/100 WBC (Bld) 6.5 % Normal [facility] Comment on above: Order Comment: Speci men Type: BLOOD SPECIMENOrdering Facility: [facility] Address: [address] [place] [address] Performed By: #### 5 7021-8 ####[facility]ITALNCLIA [id number] [place] [address] [place] MCH (RBC) [Entitic mass] 28.3 pg Normal 26.0-34.0 [facility] Comment on above: Order Comment: Speci men Type: BLOOD SPECIMENOrdering Facility: [facility] Address: [address] [place] [address] Performed By: #### 5 7021-8 ####[facility] NABILNCBLAKE [id number] [place] [address] [place] MCHC (RBC) [Mass/Vol] 32.7 g/dL Normal 30.5-36.0 [facility] Comment on above: Order Comment: Speci men Type: BLOOD SPECIMENOrdering Facility: [facility] Address: [address] [place] [address] Performed By: #### 5 7021-8 ####[facility] HOSPITALNICOLE [id number] [place] [address] [place] MCV (RBC) [Entitic vol] 86.6 fL Normal 80.0-100.0 C [facility] Comment on above: Order Comment: Speci men Type: BLOOD SPECIMENOrdering Facility: [facility] Address: [address] [place], [place] [address] Performed By: #### 5 7021-8 ####[facility] HOSPITALNICOLE [id number] [place] [address] [place] Monocytes (Bld) [#/Vol] 0.25 10*3/uL Normal <0.87 [facility] Comment on above: Order Comment: Speci men Type: BLOOD SPECIMENOrdering Facility: [facility] Address: [address] [place] [address] Performed By: #### 5 7021-8 ####[facility]ITALNCLIA [id number] [place] [address] [place] Monocytes/100 WBC (Bld) 9.6 % Normal C [facility] Comment on above: Order Comment: Speci men Type: BLOOD SPECIMENOrdering Facility: [facility] Address: [address] [place] [address] Performed By: #### 5 7021-8 ####[facility] MILLWNCLIA [id number] [place] [address] [place] Neutrophils (Bld) [#/Vol] 2.05 10*3/uL Normal 1.45-7.50 [facility] Comment on above: Order Comment: Speci men Type: BLOOD SPECIMENOrdering Facility: [facility] Address: [address] [place] [address] Performed By: #### 5 7021-8 ####[facility] HOSPITALLIA [id number] [place] [address] [place] Neutrophils/100 WBC (Bld) 78.6 % Normal [facility] Comment on above: Order Comment: Speci men Type: BLOOD SPECIMENOrdering Facility: [facility] Address: [address] [place] [address] Performed By: #### 5 7021-8 ####[facility] [id number] [place] [address] [place] Nucleated RBC (Bld) [#/Vol] 10*3/uL Normal <0.01 [facility] Comment on above: Order Comment: Speci men Type: BLOOD SPECIMENOrdering Facility: [facility] Address: [address] [place] [address] Performed By: #### 5 7021-8 ####[facility] [facility] [id number] [place] [address] [place] Nucleated RBC/100 WBC (Bld) [Ratio] 0.0 /100 WBC Normal [facility] Comment on above: Order Comment: Speci men Type: BLOOD SPECIMENOrdering Facility: [facility] Address: [address] [place] [address] Performed By: #### 5 7021-8 ####[facility] [id number] [place] [address] [place] Platelet mean volume (Bld) [Entitic vol] 9.9 fL Normal 9.0-12.7 [facility] Comment on above: Order Comment: Speci men Type: BLOOD SPECIMENOrdering Facility: [facility] Address: [address] [place] [address] Performed By: #### 5 7021-8 ####[facility] ALYSSAKEENENICOLE [id number] [place] [address] [place] Platelets (Bld) [#/Vol] 219 10*3/uL Normal 150-400 [facility] Comment on above: Order Comment: Speci men Type: BLOOD SPECIMENOrdering Facility: [facility] Address: [address] [place] [address] Performed By: #### 5 7021-8 ####[facility] HOSPITALHAMLETFroy [id number] [place] [address] [place] RBC (Bld) [#/Vol] 3.74 10*6/uL Low 3.90-5.20 [facility] Comment on above: Order Comment: Speci men Type: BLOOD SPECIMENOrdering Facility: [facility] Address: [address] [place] [address] Performed By: #### 5 7021-8 ####[facility]ITALNCLIA [id number] [place] [address] [place] WBC (Bld) [#/Vol] 2.61 10*3/uL Low 3.70-11.00 [facility] Comment on above: Order Comment: Speci men Type: BLOOD SPECIMENOrdering Facility: [facility] Address: [address] [place] [address] Performed By: #### 5 7021-8 ####[facility]ITALNCLIA [id number] [place] [address] [place] CNOVSPon 11-09-2024 CNOVSP Normal [facility] metabolic 2000 panelOrdered By: Frannie Puente on 11-09-2024 Albumin [Mass/Vol] 3.7 g/dL Low 3.9 - 4.9 g/dL [facility] ALP [Catalytic activity/Vol] 68 U/L 34 - 123 U/L [facility] ALT [Catalytic activity/Vol] 13 U/L 7 - 38 U/L [facility] Anion gap [Moles/Vol] 11 mmol/L 8 - 15 mmol/L [facility] AST [Catalytic activity/Vol] 15 U/L 13 - 35 U/L [facility] Bilirubin [Mass/Vol] 0.2 mg/dL 0.2 - 1 .3 mg/dL [facility] Calcium [Mass/Vol] 9.7 mg/dL 8.5 - 10. 2 mg/dL [facility] Chloride [Moles/Vol] 98 mmol/L 98 - 10 7 mmol/L [facility] CO2 [Moles/Vol] 24 mmol/L 22 - 30 mmol/L [facility] Creatinine [Mass/Vol] 0.64 mg/dL 0.58 - 0.96 mg/dL [facility] GFR/1.73 sq M.predicted among non-blacks MDRD (S/P/Bld) [Vol rate/Area] 98 mL/min/{1.73_m2} - PINF [facility] Comment on above: Estimated Glomerular Filtration Rate [...] 103 mg/dL High 74 - 99 mg/dL [facility] Comment on above: The [place] Diabete [place] Association (ADA) provides guidance for [...] Standards of Medical Care in Diabetes 2016, [place] [employer]. Diabetes Care. 2016.39(Suppl 1). Interpretation and review of laboratory results Abnormal [facility] Potassium [Moles/Vol] 4.1 mmol/L 3.7 - 5.1 mmol/L [facility] Protein [Mass/Vol] 6.5 g/dL 6.3 - 8.0 g/dL [facility] Sodium [Moles/Vol] 133 mmol/L Low 136 - 144 mmol/L [facility] Urea nitrogen [Mass/Vol] 15 mg/dL 7 - 21 mg/dL [facility] Comprehensive metabolic 2000 panelon 11-09-2024 Albumin [Mass/Vol] 3.7 g/dL Low 3.9-4.9 [facility] Comment on above: Order Comment: Speci men Type: BLOOD SPECIMENOrdering Facility: [facility] Address: [address] [place] [address] Performed By: #### 2 4323-8 ####[facility] [id number] [place] [address] [place] ALP [Catalytic activity/Vol] 68 U/L Normal 34-123 [facility] Comment on above: Order Comment: Stanislavi men Type: BLOOD SPECIMENOrdering Facility: [facility] Address: [address] [place] [address] Performed By: #### 2 4323-8 ####[facility] [id number] [place] [address] [place] ALT [Catalytic activity/Vol] 13 U/L Normal 7-38 [facility] Comment on above: Order Comment: Stanislavi men Type: BLOOD SPECIMENOrdering Facility: [facility] Address: [address] [place] [address] Performed By: #### 2 4323-8 ####[facility]ITALNCLIA [id number] [place] [address] [place] Anion gap [Moles/Vol] 11 mmol/L Normal 8-15 [facility] Comment on above: Order Comment: Speci men Type: BLOOD SPECIMENOrdering Facility: [facility] Address: [address] [place] [address] Performed By: #### 2 4323-8 ####[facility]DRENWORLIA [id number] [place] [address] [place] AST [Catalytic activity/Vol] 15 U/L Normal 13-35 [facility] Comment on above: Order Comment: Speci men Type: BLOOD SPECIMENOrdering Facility: [facility] Address: [address] [place] [address] Performed By: #### 2 4323-8 ####[facility]ITALA [id number] [place] [address] [place] Bilirubin [Mass/Vol] 0.2 mg/dL Normal 0.2-1.3 [facility] Comment on above: Order Comment: Speci men Type: BLOOD SPECIMENOrdering Facility: [facility] Address: [address] [place] [address] Performed By: #### 2 4323-8 ####[facility] [id number] [place] [address] [place] Calcium [Mass/Vol] 9.7 mg/dL Normal 8.5-10.2 [facility] Comment on above: Order Comment: Speci men Type: BLOOD SPECIMENOrdering Facility: [facility] Address: [address] [place], [place] [address] Performed By: #### 2 4323-8 ####[facility]ITALNCLIA [id number] [place] [address] [place] Chloride [Moles/Vol] 98 mmol/L Normal 98-107 [facility] Comment on above: Order Comment: Speci men Type: BLOOD SPECIMENOrdering Facility: [facility] Address: [address] [place] [address] Performed By: #### 2 4323-8 ####[facility] DORAL [id number] [place] [address] [place] CO2 [Moles/Vol] 24 mmol/L Normal 22-30 [facility] Comment on above: Order Comment: Speci men Type: BLOOD SPECIMENOrdering Facility: [facility] Address: [address] [place] [address] Performed By: #### 2 4323-8 ####[facility] DORAL [id number] [place] [address] [place] Creatinine [Mass/Vol] 0.64 mg/dL Normal 0.58-0.96 [facility] Comment on above: Order Comment: Speci men Type: BLOOD SPECIMENOrdering Facility: [facility] Address: [address] [place] [address] Performed By: #### 2 4323-8 ####[facility] DORAL [id number] [address] [place] Creatinine and Glomerular filtration rate.predicted panel (S/P/Bld) 98 mL/min/1.73m??? Normal >=60 [facility] Comment on above: Order Comment: Speci men Type: BLOOD SPECIMENOrdering Facility: [facility] Address: [address] [place] [address] Result Comment: Sonia mated Glomerular Filtration Rate [...] Performed By: #### 2 4323-8 ####[facility]ITALNCLI [id number] [place] [address] [place] Glucose [Mass/Vol] 103 mg/dL High 74-99 [facility] Comment on above: Order Comment: Speci men Type: BLOOD SPECIMENOrdering Facility: [facility] Address: [address] [place] [address] Result Comment: The [place] Diabetes Association (ADA) provides guidance for cutoff [...] Standards of Medical Care in Diabetes 2016, [place] [employer]. Diabetes Care. 2016.39(Suppl 1). Performed By: #### 2 4323-8 ####[facility]OSPITALTOWZEVLIA [id number] [place] [address] [place] Potassium [Moles/Vol] 4.1 mmol/L Normal 3.7-5.1 [facility] Comment on above: Order Comment: Speci men Type: BLOOD SPECIMENOrdering Facility: [facility] Address: [address] [place] [address] Performed By: #### 2 4323-8 ####[facility] CHILDRENWNCLIA [id number] [place] [address] [place] Protein [Mass/Vol] 6.5 g/dL Normal 6.3-8.0 [facility] Comment on above: Order Comment: Speci men Type: BLOOD SPECIMENOrdering Facility: [facility] Address: [address] [place], [place] [address] Performed By: #### 2 4323-8 ####[facility] HOSPITALZEVLIA [id number] [place] [address] [place] Sodium [Moles/Vol] 133 mmol/L Low 136-144 [facility] Comment on above: Order Comment: Speci men Type: BLOOD SPECIMENOrdering Facility: [facility] Address: [address] [place] [address] Performed By: #### 2 4323-8 ####[facility] DORAL [id number] [place] [address] [place] Urea nitrogen [Mass/Vol] 15 mg/dL Normal 7-21 [facility] Comment on above: Order Comment: Speci men Type: BLOOD SPECIMENOrdering Facility: [facility] Address: [address] [place] [address] Performed By: #### 2 4323-8 ####[facility] DORAL [id number] [place] [address] [place] CNPNon 11-05-2024 CNPN Normal [facility] CNOVon 11-03-2024 CNOV Normal [facility] BRIEF OP NOTon 10-30-2024 BRIEF OP NOT HNO ID: [id number] Author: ORTEGA CARDENAS MD Service: Radiology Author Type: Physician Type: Brief Op Note Filed: 10/30/2024 14:35 Note Text: RADIOLOGY BRIEF PROCEDURE NOTE LOG ID: [id number] Surgery/Procedure Date: 10/30/2024 Incision/Procedure Start Time: 1:53 PM Incision Close/Procedure End Time: 2:28 PM Informed Consent obtained under separate note. ATTENDING RADIOLOGIST: Interventional: Dr. Ortega Cardenas TRANSIT BUS OPERATOR: None PRE-PROCEDURAL DIAGNOSIS: Anal cancer ANESTHESIA: Procedural Sedation PROCEDURE: A ported central venous catheter was placed via the right internal jugular vein under imaging guidance. POST-PROCEDURAL DIAGNOSIS: Same COMPLICATIONS: None ESTIMATED BLOOD LOSS: Minimal INDWELLING DEVICES: Vaccess CT Power-Injectable Port with 8 Romanian polyurethane catheter SPECIMENS: None DISPOSITION: Patient hemodynamically stable, alert and awake. Patient transferred to Radiology Recovery/PACU for monitoring prior to anticipated discharge home. FULL REPORT TO FOLLOW (under the Imaging tab in the Chart Review section) SIGNATURE: Ortega Cardenas MD PATIENT NAME: Marimar Wang DATE: October 30, 2024 TIME: 2:33 PM CONTACT #: [phone] [facility] Brain/Head without Contrasto n 10-30-2024 Brain/Head without Contrast [facility] Imaging Services [address] [place] [address] Brain/Head without Contrast MR#: [id number] Acct: [id number] Name: MARIMAR WANG Rep #: [id number] : 1960 F 64 From: Jaiden Mariee MD PCP: STEFANO ArriolaC Status: REG ER Study: Brain/Head without Contrast Date of Exam: 11/20 Exam# [id number] Ordering Dr: Gaudencio Ambriz DO PROCEDURE: BRAIN/HEAD [...] mass effect or calvarial fracture. Reading Location: [facility] CC: CARBON PRINTERMadayC Julio Arriaga; Gaudencio Ambriz DO Pre Owned Sales Manager: Signed Normal [facility] CBC W Auto Differential pane l (Bld)on 10-30-2024 Basophils (Bld) [#/Vol] 0.04 10*3/uL Normal <0.11 [facility] Comment on above: Order Comment: Speci men Type: BLOOD SPECIMENOrdering Facility: [facility] Address: [address] [place] [address] Performed By: #### 5 7021-8 ####[facility] MILLWNCLIA [id number] [place] [address] [place] Basophils/100 WBC (Bld) 1.0 % Normal C [facility] Comment on above: Order Comment: Speci men Type: BLOOD SPECIMENOrdering Facility: [facility] Address: [address] [place] [address] Performed By: #### 5 7021-8 ####[facility] [id number] [place] [address] [place] Differential cell count method Nom (Bld) Auto Normal [facility] Comment on above: Order Comment: Speci men Type: BLOOD SPECIMENOrdering Facility: [facility] Address: [address] [place] [address] Performed By: #### 5 7021-8 ####[facility] [id number] [place] [address] [place] Eosinophils (Bld) [#/Vol] 10*3/uL Normal <0.46 [facility] Comment on above: Order Comment: Speci men Type: BLOOD SPECIMENOrdering Facility: [facility] Address: [address] [place] [address] Performed By: #### 5 7021-8 ####[facility]PITALA [id number] [place] [address] [place] Eosinophils/100 WBC (Bld) 0.5 % Normal [facility] Comment on above: Order Comment: Speci men Type: BLOOD SPECIMENOrdering Facility: [facility] Address: [address] [place] [address] Performed By: #### 5 7021-8 ####[facility] [id number] [place] [address] [place] Erythrocyte distribution width (RBC) [Ratio] 20.9 % High 11.5-15.0 [facility] Comment on above: Order Comment: Speci men Type: BLOOD SPECIMENOrdering Facility: [facility] Address: [address] [place] [address] Performed By: #### 5 7021-8 ####[facility] DORAL [id number] [place] [address] [place] Hematocrit (Bld) [Volume fraction] 34.4 % Low 36.0-46.0 [facility] Comment on above: Order Comment: Speci men Type: BLOOD SPECIMENOrdering Facility: [facility] Address: [address] [place] [address] Performed By: #### 5 7021-8 ####[facility]ITALNC[facility] [id number] [place] [address] [place] Hemoglobin (Bld) [Mass/Vol] 10.9 g/dL Low 11.5-15.5 [facility] Comment on above: Order Comment: Speci men Type: BLOOD SPECIMENOrdering Facility: [facility] Address: [address] [place] [address] Performed By: #### 5 7021-8 ####[facility] D[facility]AL [id number] [place] [address] [place] Immature granulocytes (Bld) [#/Vol] 10*3/uL Normal <0.10 [facility] Comment on above: Order Comment: Speci men Type: BLOOD SPECIMENOrdering Facility: [facility] Address: [address] [place] [address] Performed By: #### 5 7021-8 ####[facility]ITALNCLI [id number] [place] [address] [place] Immature granulocytes/100 WBC (Bld) 0.5 % Normal [facility] Comment on above: Order Comment: Speci men Type: BLOOD SPECIMENOrdering Facility: [facility] Address: [address] [place] [address] Performed By: #### 5 7021-8 ####[facility] ALYSSAKEENENICOLE [id number] [place] [address] [place] Lymphocytes (Bld) [#/Vol] 0.31 10*3/uL Low 1.00-4.00 [facility] Comment on above: Order Comment: Speci men Type: BLOOD SPECIMENOrdering Facility: [facility] Address: [address] [place] [address] Performed By: #### 5 7021-8 ####[facility] D[facility] [id number] [place] [address] [place] Lymphocytes/100 WBC (Bld) 7.7 % Normal [facility] Comment on above: Order Comment: Speci men Type: BLOOD SPECIMENOrdering Facility: [facility] Address: [address] [place] [address] Performed By: #### 5 7021-8 ####[facility] H[facility]PITALBLAKE [id number] [place] [address] [place] MCH (RBC) [Entitic mass] 27.3 pg Normal 26.0-34.0 [facility] Comment on above: Order Comment: Speci men Type: BLOOD SPECIMENOrdering Facility: [facility] Address: [address] [place] [address] Performed By: #### 5 7021-8 ####[facility] [id number] [place] [address] [place] MCHC (RBC) [Mass/Vol] 31.7 g/dL Normal 30.5-36.0 [facility] Comment on above: Order Comment: Speci men Type: BLOOD SPECIMENOrdering Facility: [facility] Address: [address] [place] [address] Performed By: #### 5 7021-8 ####[facility] ALYSSAWNCLIA [id number] [place] [address] [place] MCV (RBC) [Entitic vol] 86.2 fL Normal 80.0-100.0 C [facility] Comment on above: Order Comment: Speci men Type: BLOOD SPECIMENOrdering Facility: [facility] Address: [address] [place] [address] Performed By: #### 5 7021-8 ####[facility] D[facility]AL [id number] [place] [address] [place] Monocytes (Bld) [#/Vol] 0.47 10*3/uL Normal <0.87 [facility] Comment on above: Order Comment: Speci men Type: BLOOD SPECIMENOrdering Facility: [facility] Address: [address] [place] [address] Performed By: #### 5 7021-8 ####[facility] D[facility]AL [id number] [place] [address] [place] Monocytes/100 WBC (Bld) 11.7 % Normal C [facility] Comment on above: Order Comment: Speci men Type: BLOOD SPECIMENOrdering Facility: [facility] Address: [address] [place] [address] Performed By: #### 5 7021-8 ####[facility] [id number] [place] [address] [place] Neutrophils (Bld) [#/Vol] 3.16 10*3/uL Normal 1.45-7.50 [facility] Comment on above: Order Comment: Speci men Type: BLOOD SPECIMENOrdering Facility: [facility] Address: [address] [place] [address] Performed By: #### 5 7021-8 ####[facility]ITALNCLIA [id number] [place] [address] [place] Neutrophils/100 WBC (Bld) 78.6 % Normal [facility] Comment on above: Order Comment: Speci men Type: BLOOD SPECIMENOrdering Facility: [facility] Address: [address] [place] [address] Performed By: #### 5 7021-8 ####[facility]ITALNC[facility] [id number] [place] [address] [place] Nucleated RBC (Bld) [#/Vol] 10*3/uL Normal <0.01 [facility] Comment on above: Order Comment: Speci men Type: BLOOD SPECIMENOrdering Facility: [facility] Address: [address] [place] [address] Performed By: #### 5 7021-8 ####[facility] D[facility]AL [id number] [place] [address] [place] Nucleated RBC/100 WBC (Bld) [Ratio] 0.0 /100 WBC Normal [facility] Comment on above: Order Comment: Speci men Type: BLOOD SPECIMENOrdering Facility: [facility] Address: [address] [place] [address] Performed By: #### 5 7021-8 ####[facility]ITALNC[facility] [id number] [place] [address] [place] Platelet mean volume (Bld) [Entitic vol] 9.7 fL Normal 9.0-12.7 [facility] Comment on above: Order Comment: Speci men Type: BLOOD SPECIMENOrdering Facility: [facility] Address: [address] [place] [address] Performed By: #### 5 7021-8 ####[facility] DORAL [id number] [place] [address] [place] Platelets (Bld) [#/Vol] 179 10*3/uL Normal 150-400 [facility] Comment on above: Order Comment: Speci men Type: BLOOD SPECIMENOrdering Facility: [facility] Address: [address] [place] [address] Performed By: #### 5 7021-8 ####[facility] NINA [id number] [place] [address] [place] RBC (Bld) [#/Vol] 3.99 10*6/uL Normal 3.90-5.20 [facility] Comment on above: Order Comment: Speci men Type: BLOOD SPECIMENOrdering Facility: [facility] Address: [address] [place] [address] Performed By: #### 5 7021-8 ####[facility] NABILNCBLAKE [id number] [place] [address] [place] WBC (Bld) [#/Vol] 4.02 10*3/uL Normal 3.70-11.00 [facility] Comment on above: Order Comment: Speci men Type: BLOOD SPECIMENOrdering Facility: [facility] Address: [address] [place] [address] Performed By: #### 5 7021-8 ####[facility] ALYSSAJamirNCLIA [id number] [place] [address] [place] CNOVSPon 10-30-2024 CNOVSP Normal [facility] Comprehensive metabolic 2000 panelon 10-30-2024 Albumin [Mass/Vol] 3.9 g/dL Normal 3.9-4.9 [facility] Comment on above: Order Comment: Speci men Type: BLOOD SPECIMENOrdering Facility: [facility] Address: [address] [place], [place] [address] Performed By: #### 2 4323-8 ####[facility] ALYSSAKEENENCLIA [id number] [place] [address] [place] ALP [Catalytic activity/Vol] 81 U/L Normal 34-123 [facility] Comment on above: Order Comment: Speci men Type: BLOOD SPECIMENOrdering Facility: [facility] Address: [address] [place] [address] Performed By: #### 2 4323-8 ####[facility] MILLTOWNCLIA [id number] [place] [address] [place] ALT [Catalytic activity/Vol] 17 U/L Normal 7-38 [facility] Comment on above: Order Comment: Speci men Type: BLOOD SPECIMENOrdering Facility: [facility] Address: [address] [place] [address] Performed By: #### 2 4323-8 ####[facility]ITALNCLIA [id number] [place] [address] [place] Anion gap [Moles/Vol] 8 mmol/L Normal 8-15 [facility] Comment on above: Order Comment: Speci men Type: BLOOD SPECIMENOrdering Facility: [facility] Address: [address] [place] [address] Performed By: #### 2 4323-8 ####[facility]ITALNCLIA [id number] [place] [address] [place] AST [Catalytic activity/Vol] 21 U/L Normal 13-35 [facility] Comment on above: Order Comment: Speci men Type: BLOOD SPECIMENOrdering Facility: [facility] Address: [address] [place] [address] Performed By: #### 2 4323-8 ####[facility] MILLTOWNCLIA [id number] [place] [address] [place] Bilirubin [Mass/Vol] 0.4 mg/dL Normal 0.2-1.3 [facility] Comment on above: Order Comment: Speci men Type: BLOOD SPECIMENOrdering Facility: [facility] Address: [address] [place] [address] Performed By: #### 2 4323-8 ####[facility] MILLKEENENCLIA [id number] [place] [address] [place] Calcium [Mass/Vol] 9.6 mg/dL Normal 8.5-10.2 [facility] Comment on above: Order Comment: Speci men Type: BLOOD SPECIMENOrdering Facility: [facility] Address: [address] [place] [address] Performed By: #### 2 4323-8 ####[facility] MILLWNCLIA [id number] [place] [address] [place] Chloride [Moles/Vol] 102 mmol/L Normal 98-107 [facility] Comment on above: Order Comment: Speci men Type: BLOOD SPECIMENOrdering Facility: [facility] Address: [address] [place] [address] Performed By: #### 2 4323-8 ####[facility] [id number] [place] [address] [place] CO2 [Moles/Vol] 26 mmol/L Normal 22-30 [facility] Comment on above: Order Comment: Speci men Type: BLOOD SPECIMENOrdering Facility: [facility] Address: [address] [place] [address] Performed By: #### 2 4323-8 ####[facility] MILLWNCLIA [id number] [place] [address] [place] Creatinine [Mass/Vol] 0.65 mg/dL Normal 0.58-0.96 [facility] Comment on above: Order Comment: Speci men Type: BLOOD SPECIMENOrdering Facility: [facility] Address: [address] [place] [address] Performed By: #### 2 4323-8 ####[facility] MILLKEENENCLIA [id number] [place] [address] [place] Creatinine and Glomerular filtration rate.predicted panel (S/P/Bld) 98 mL/min/1.73m??? Normal >=60 [facility] Comment on above: Order Comment: Mindy mcfarlane Type: BLOOD SPECIMENOrdering Facility: [facility] Address: [address] [id number] Result Comment: Sonia mated Glomerular Filtration Rate [...] actual GFR. Performed By: #### 2 4323-8 ####[facility] DORAL [id number] [place] [address] [place] Glucose [Mass/Vol] 111 mg/dL High 74-99 [facility] Comment on above: Order Comment: Mindy mcfarlane Type: BLOOD SPECIMENOrdering Facility: [facility] Address: [address] [place] [address] Result Comment: The [place] Diabetes Association (ADA) provides guidance for cutoff [...] Standards of Medical Care in Diabetes 2016, [place] [employer]. Diabetes Care. 2016.39(Suppl 1). Performed By: #### 2 4323-8 ####[facility] DORAL [id number] [place] [address] [place] Potassium [Moles/Vol] 3.7 mmol/L Normal 3.7-5.1 [facility] Comment on above: Order Comment: Mindy mcfarlane Type: BLOOD SPECIMENOrdering Facility: [facility] Address: [address] [place], [place] [address] Performed By: #### 2 4323-8 ####[facility]ITALNCLI [id number] [place] [address] [place] Protein [Mass/Vol] 6.9 g/dL Normal 6.3-8.0 [facility] Comment on above: Order Comment: Speci men Type: BLOOD SPECIMENOrdering Facility: [facility] Address: [address] [place] [address] Performed By: #### 2 4323-8 ####[facility]ITAL[facility] [id number] [place] [address] [place] Sodium [Moles/Vol] 136 mmol/L Normal 136-144 [facility] Comment on above: Order Comment: Speci men Type: BLOOD SPECIMENOrdering Facility: [facility] Address: [address] [place] [address] Performed By: #### 2 4323-8 ####[facility]ITALNCLIA [id number] [place] [address] [place] Urea nitrogen [Mass/Vol] 6 mg/dL Low 7-21 [facility] Comment on above: Order Comment: Speci men Type: BLOOD SPECIMENOrdering Facility: [facility] Address: [address] [place] [address] Performed By: #### 2 4323-8 ####[facility]ITALNCLIA [id number] [place] [address] [place] Emergency Department Summary on 10-30-2024 Emergency Department Summary [facility] [address] [place] [address] Emergency Department Summary 10/30/24 MR#: [id number] Acct: [id number] Name: MARIMAR WANG Rep #: [id number] : 1960 64 From: Gaudencio Ambriz DO [...] therefore she was brought in for evaluation [facility] Medical History Squamous cell cancer of [...] [facility]HS MENTAL HEALTH 6 09/01/24 History peg 057-rmiltdcazqlr-iugvuis n 1 1 drp OP 4X/DAY DRY [...] Constipation Unknown History gram/dose oral powder (Miralax) qfemwi-kjrusnal-dlpfnga See Rx Instructions PO .COMPLEX 09/01/24 Rx [...] Rx capsule,delayed (more content not included)... Normal [facility] HIP, UNI W/ Pelvis 2-3 Views on 10-30-2024 HIP, UNI W/ Pelvis 2-3 Views [facility] Imaging Services [address] [place], [place] [id number] HIP, UNI W/ Pelvis 2-3 Views MR#: [id number] Acct: [id number] Name: MARIMAR WANG Rep #: [id number] : 1960 F 64 From: Jaiden Mariee MD PCP: [facility] Arriola Status: REG ER Study: HIP, UNI W/ Pelvis 2-3 Views Date of Exam: 11/20 Exam# [id number] Ordering Dr: Gaudencio Ambriz DO PROCEDURE: HIP, [...] lower left sacroiliac joint noted. Reading Location: [facility] CC: [employer] Julio Arriaga; Gaudencio Ambriz DO Pre Owned Sales Manager: Signed Normal [facility] HISTORY PHYSICALon HISTORY PHYSICAL HNO ID: [id number] Author: ORTEGA CARDENAS MD Service: Radiology Author [...] 01/30/2019 [facility]otid [facility] COPD (chronic obstructive pulmonary disease) (HCC) [...] mg by mouth once daily. 10/29/2024 Yes kciftp-goqukaxk-hzfhzfe (CREON 36) 36,000-114,000- 180,000 unit delayed release [...] Patient not taking: Reported on 10/30/2024 10/28/2024 sfqcftmvezUFCJE-kbpbbw-y idocaine (BMX 1:1:1) 1:1:1 liqd Take 10 mL by mouth every 4 hours as needed. iv contrast (will be provided with radiology test) CT Chest W -Inject, intravenously, once for 1 dose.No IV access, insert saline lock prior to the beginning of se (more content not included)... Normal [facility] IR FLU GD RIO CVA PLACEon IR FLU GD RIO CVA PLACE * * *Final Repor t* * * DATE OF EXAM: Oct 30 2024 2:27PM [facility] 7444 - IR FLU GD RIO [...] placed: Vaccess CT Power-Injectable Port with 8 Romanian polyurethane catheter Catheter tip position: Cavoatrial junction [...] INSERTION OF RIGHT-SI (more content not included)... [facility] IR PORTOCATH PLACEMENTon IR PORTOCATH PLACEMENT * * *Final Report * * * DATE OF EXAM: Oct 30 2024 2:27PM [facility] 8966 - IR PORTOCATH PLACEMENT / [...] placed: Vaccess CT Power-Injectable Port with 8 Romanian polyurethane catheter Catheter tip position: Cavoatrial junction [...] INSERTION OF RIGHT-NENITA (more content not included)... [facility] IR US VASCULAR ACCESS GUIDEo n 10-30-2024 IR US VASCULAR ACCESS GUIDE * * *Final Report* * * DATE OF EXAM: Oct 30 2024 2:27PM [facility] 7765 - IR US VASCULAR ACCESS [...] placed: Vaccess CT Power-Injectable Port with 8 Romanian polyurethane catheter Catheter tip position: Cavoatrial junction [...] INSERTION OF RIGH (more content not included)... [facility] NURSING PROGon 10-30-2024 NURSING PROG HNO ID: [id number] Author: JACKIE CANDELARIA, RN Service: Nursing Author Type: Registered Nurse Type: Nursing Progress Note Filed: 11/02/2024 17:59 Note Text: Completed post procedure phone call. Vidya is feeling well and has returned to her baseline diet and activity. Vidya denies questions or concerns related to she appointment and had no surgical site concerns. [facility] NURSING PROG HNO ID: [id number] Author: RADHA QUIROZ, LÓPEZ Service: ? Author [...] (RECOMMENDATION): None Electronically Signed By: Radha Quiroz [facility] CNPNon 10-28-2024 CNPN [facility] CNOVon 10-27-2024 CNOV [facility] CBC W Auto Differential pane l (Bld)on 10-26-2024 Basophils (Bld) [#/Vol] 0.04 10*3/uL Normal <0.11 [facility] Comment on above: Order Comment: Speci men Type: BLOOD SPECIMENOrdering Facility: [facility] Address: [address] [place] [address] Performed By: #### 5 7021-8 ####[facility] MILLWNCLIA [id number] [place] [address] [place] Basophils/100 WBC (Bld) 1.7 % Normal C [facility] Comment on above: Order Comment: Speci men Type: BLOOD SPECIMENOrdering Facility: [facility] Address: [address] [place] [address] Performed By: #### 5 7021-8 ####[facility] HOSPITALLIA [id number] [place] [address] [place] Differential cell count method Nom (Bld) Auto Normal [facility] Comment on above: Order Comment: Speci men Type: BLOOD SPECIMENOrdering Facility: [facility] Address: [address] [place] [address] Performed By: #### 5 7021-8 ####[facility] HOSPITALLIA [id number] [place] [address] [place] Eosinophils (Bld) [#/Vol] 10*3/uL Normal <0.46 [facility] Comment on above: Order Comment: Speci men Type: BLOOD SPECIMENOrdering Facility: [facility] Address: [address] [place] [address] Performed By: #### 5 7021-8 ####[facility]ITALLIA [id number] [place] [address] [place] Eosinophils/100 WBC (Bld) 0.4 % Normal [facility] Comment on above: Order Comment: Speci men Type: BLOOD SPECIMENOrdering Facility: [facility] Address: [address] [place] [address] Performed By: #### 5 7021-8 ####[facility]ITALNCLIA [id number] [place] [address] [place] Erythrocyte distribution width (RBC) [Ratio] 19.6 % High 11.5-15.0 [facility] Comment on above: Order Comment: Speci men Type: BLOOD SPECIMENOrdering Facility: [facility] Address: [address] [place] [address] Performed By: #### 5 7021-8 ####[facility]ITALNC[facility] [id number] [place] [address] [place] Hematocrit (Bld) [Volume fraction] 34.8 % Low 36.0-46.0 [facility] Comment on above: Order Comment: Speci men Type: BLOOD SPECIMENOrdering Facility: [facility] Address: [address] [place] [address] Performed By: #### 5 7021-8 ####[facility]ITALNC[facility] [id number] [place] [address] [place] Hemoglobin (Bld) [Mass/Vol] 11.0 g/dL Low 11.5-15.5 [facility] Comment on above: Order Comment: Speci men Type: BLOOD SPECIMENOrdering Facility: [facility] Address: [address] [place] [address] Performed By: #### 5 7021-8 ####[facility] H[facility]ITALLIA [id number] [place] [address] [place] Immature granulocytes (Bld) [#/Vol] 10*3/uL Normal <0.10 [facility] Comment on above: Order Comment: Speci men Type: BLOOD SPECIMENOrdering Facility: [facility] Address: [address] [place] [address] Performed By: #### 5 7021-8 ####[facility]ITALNCLI [id number] [place] [address] [place] Immature granulocytes/100 WBC (Bld) 0.9 % Normal [facility] Comment on above: Order Comment: Speci men Type: BLOOD SPECIMENOrdering Facility: [facility] Address: [address] [place] [address] Performed By: #### 5 7021-8 ####[facility] ALYSSAJAZMYN [id number] [place] [address] [place] Lymphocytes (Bld) [#/Vol] 0.36 10*3/uL Low 1.00-4.00 [facility] Comment on above: Order Comment: Speci men Type: BLOOD SPECIMENOrdering Facility: [facility] Address: [address] [place] [address] Performed By: #### 5 7021-8 ####[facility]ITALZEVSEVIER VAL[facility] [id number] [place] [address] [place] Lymphocytes/100 WBC (Bld) 15.3 % Normal [facility] Comment on above: Order Comment: Speci men Type: BLOOD SPECIMENOrdering Facility: [facility] Address: [address] [place] [address] Performed By: #### 5 7021-8 ####[facility] HOSPITALNICOLE [id number] [place] [address] [place] MCH (RBC) [Entitic mass] 27.0 pg Normal 26.0-34.0 [facility] Comment on above: Order Comment: Speci men Type: BLOOD SPECIMENOrdering Facility: [facility] Address: [address] [place] [address] Performed By: #### 5 7021-8 ####[facility]ITALNCLIA [id number] [place] [address] [place] MCHC (RBC) [Mass/Vol] 31.6 g/dL Normal 30.5-36.0 [facility] Comment on above: Order Comment: Speci men Type: BLOOD SPECIMENOrdering Facility: [facility] Address: [address] [place] [address] Performed By: #### 5 7021-8 ####[facility]ENWNCLIA [id number] [place] [address] [place] MCV (RBC) [Entitic vol] 85.3 fL Normal 80.0-100.0 C [facility] Comment on above: Order Comment: Speci men Type: BLOOD SPECIMENOrdering Facility: [facility] Address: [address] [place] [address] Performed By: #### 5 7021-8 ####[facility] HOSPITALLIA [id number] [place] [address] [place] Monocytes (Bld) [#/Vol] 0.32 10*3/uL Normal <0.87 [facility] Comment on above: Order Comment: Speci men Type: BLOOD SPECIMENOrdering Facility: [facility] Address: [address] [place] [address] Performed By: #### 5 7021-8 ####[facility] H[facility]PITALA [id number] [place] [address] [place] Monocytes/100 WBC (Bld) 13.6 % Normal C [facility] Comment on above: Order Comment: Speci men Type: BLOOD SPECIMENOrdering Facility: [facility] Address: [address] [place] [address] Performed By: #### 5 7021-8 ####[facility]ITALLIA [id number] [place] [address] [place] Neutrophils (Bld) [#/Vol] 1.60 10*3/uL Normal 1.45-7.50 [facility] Comment on above: Order Comment: Speci men Type: BLOOD SPECIMENOrdering Facility: [facility] Address: [address] [place] [address] Performed By: #### 5 7021-8 ####[facility]ITALNCLI [id number] [place] [address] [place] Neutrophils/100 WBC (Bld) 68.1 % Normal [facility] Comment on above: Order Comment: Speci men Type: BLOOD SPECIMENOrdering Facility: [facility] Address: [address] [place] [address] Performed By: #### 5 7021-8 ####[facility]ITALNC[facility] [id number] [place] [address] [place] Nucleated RBC (Bld) [#/Vol] 10*3/uL Normal <0.01 [facility] Comment on above: Order Comment: Speci men Type: BLOOD SPECIMENOrdering Facility: [facility] Address: [address] [place] [address] Performed By: #### 5 7021-8 ####[facility]ITALNC[facility] [id number] [place] [address] [place] Nucleated RBC/100 WBC (Bld) [Ratio] 0.0 /100 WBC Normal [facility] Comment on above: Order Comment: Speci men Type: BLOOD SPECIMENOrdering Facility: [facility] Address: [address] [place] [address] Performed By: #### 5 7021-8 ####[facility]ITALNC[facility] [id number] [place] [address] [place] Platelet mean volume (Bld) [Entitic vol] 9.6 fL Normal 9.0-12.7 [facility] Comment on above: Order Comment: Speci men Type: BLOOD SPECIMENOrdering Facility: [facility] Address: [address] [place] [address] Performed By: #### 5 7021-8 ####[facility]ITALNC[facility] [id number] [place] [address] [place] Platelets (Bld) [#/Vol] 147 10*3/uL Low 150-400 [facility] Comment on above: Order Comment: Speci men Type: BLOOD SPECIMENOrdering Facility: [facility] Address: [address] [place] [address] Performed By: #### 5 7021-8 ####[facility]ITALNCLIA [id number] [place] [address] [place] RBC (Bld) [#/Vol] 4.08 10*6/uL Normal 3.90-5.20 [facility] Comment on above: Order Comment: Speci men Type: BLOOD SPECIMENOrdering Facility: [facility] Address: [address] [place] [address] Performed By: #### 5 7021-8 ####[facility]ITALNCLIA [id number] [place] [address] [place] WBC (Bld) [#/Vol] 2.35 10*3/uL Low 3.70-11.00 [facility] Comment on above: Order Comment: Speci men Type: BLOOD SPECIMENOrdering Facility: [facility] Address: [address] [place] [address] Performed By: #### 5 7021-8 ####[facility]ITALNCLIA [id number] [address] [place] Jeremy 10-26-2024 [facility] Telephone (AVXRPR) -------- MARIMAR WANG ([id number]) 1960 F Date Time Provider Department 10/26/24 [...] mouth every 6 hours as needed. - kwkbvrfjjaYNHQN-vxqmkw-h idocaine (BMX 1:1:1) 1:1:1 liqd Take 10 [...] 80 mg by mouth once daily. - txoewg-hojkrecd-gpeyzgx (CREON 36) 36,000-114,000- 180,000 unit delayed release [...] Comments as of 02/06/2017: [facility] use pharmacy [facility] [place] [address] Problem List As Of Date 10/26/2024 Noted [...] [G47.00] 09/03/2014 (more content not included)... Normal [facility] CNPN Telephone (AVXRPR) -------- MARIMAR WANG ([id number]) 1960 F Date Time Provider Department 10/26/24 JESSICA DIAS During your visit today, we recorded the following information about you: Jessica Dias, LÓPEZ 10/26/2024 4:13 PM Signed You are scheduled for a medi port placement, On 10/30/2024. You are to arrive at 1200 pm and Report to [facility]: [facility]: Radiology Outpatient Desk [id number] You can [...] Labs: Lab-work needs to be drawn? No.. Legal Adviser/Transportation: How will you be arriving for your procedure? Private car. You will need a responsible adult to accompany you to and from the procedure. Your bus driver is required to stay with you until you are taken into the procedure room. Call [phone] with questions Allergies As of Date: 10/26/2024 [...] mouth every 6 hours as needed. - bhmvogotnuAZNZX-bzchxa-w idocaine (BMX 1:1:1) 1:1:1 liqd Take 10 [...] 80 mg by mouth once daily. - exshdp-gjzvczpb-gdbngmz (CREON 36) 36,000-114,000- 180,000 unit delayed release [...] 1 t (more content not included)... Normal [facility] CNPN Normal [facility] L499.0042on 10-25-2024 Trop T High Sen 13 ng/L Normal <=14 [facility] Comment on above: Result Comment: Hemo lysis present, Results??could be affected. ?? Performed By: #### L 499.0042 #### [facility] Laboratory [address] [place], [address] 12 Lead EKGon 10-24-2024 12 Lead EKG [facility] Cardiovascular Services [address] [place] [address] 12 Lead EKG 10/24/242128 MR#: [id number] Acct: [id number] Name: MARIMAR WANG Rep #: [id number] : 1960 64 From: Ortega Wallis MD [...] in Lateral leads Confirmed by Ortega Wallis ([id number]), staff editor SARAH SIDDIQI ([id number]) on 10/29/2024 10:02:59 AM Referred By: Confirmed By: Ortega Wallis 10/29/24 1003 Date Ortega Wallis MD CC: [facility] Arriaga; [facility] Bates; Dr. [place] Dow, Signed Normal [facility] Abdomen/Pelvis W IV Cont ONL Yon 10-24-2024 Abdomen/Pelvis W IV Cont ONLY [facility] Imaging Services [address] [place], [place] [id number] Abdomen/Pelvis W IV Cont ONLY MR#: [id number] Acct: [id number] Name: MARIMAR WANG Rep #: [id number] : 1960 F 64 From: Betsey Obrien MD PCP: [facility] Arriola Status: REG ER Study: Abdomen/Pelvis W IV Cont ONLY Date of Exam: Exam# [id number] Ordering Dr: Josh Bates CARBON PRINTERRowan PROCEDURE: ABDOMEN/PELVIS W IV CONT ONLY 10/24/2024 [...] a chronic postinfectious/inflammat ory process. Reading [facility] CC: [facility] Arriaga; [facility] Bates Pre Owned Sales Manager: Signed Normal [facility] Absolute lymphocyte countOrd ered By: Josh Bates on 10-24-2024 Lymphocytes Auto (Unsp spec) [#/Vol] 0.48 10*3/uL Low 0.83-4.51 [facility] Absolute neutrophil countOrd ered By: Josh Bates on 10-24-2024 Neutrophils (Bld) [#/Vol] 1.5 10*3/uL Low 2.0-7.7 [facility] Anion gap in Serum or Plasma Ordered By: Josh Bates on 10-24-2024 Anion gap [Moles/Vol] 11 mmol/L 5-15 [facility] Automated lymphocyte count a s percentage of total leukocytesOrdered By: Josh Bates on 10-24-2024 Lymphocytes/100 WBC Auto (Unsp spec) 18.2 % Low 19-41 [facility] BUN/creatinine ratioOrdered By: Josh Bates on 10-24-2024 Urea nitrogen/Creatinine [Mass ratio] 11.6 mg/mg 10- [facility] Basic Metabolic Profile (BMP )on 10-24-2024 BUN/CRE 11.6 RATIO Normal - [facility] Comment on above: Performed By: #### L 100.0100, L500.2500 #### [facility] Laboratory [address] [place], [address] Calcium [Mass/Vol] 8.9 mg/dL Normal 7.6-11.0 [facility] Comment on above: Performed By: #### L 100.0100, L500.2500 #### [facility] [address] [place], [address] Chloride [Moles/Vol] 105 mmol/L Normal 98-108 [facility] Comment on above: Performed By: #### L 100.0100, L500.2500 #### [facility] [address] [place], [address] CO2 [Moles/Vol] 21.7 mmol/L Normal 21.0-32.0 [facility] Comment on above: Performed By: #### L 100.0100, L500.2500 #### [facility] [address] [place], [address] Creatinine [Mass/Vol] 0.67 mg/dL Low 0.70-1.20 [facility] Comment on above: Performed By: #### L 100.0100, L500.2500 #### [facility] [address] [place], [address] ECRCL 73.11 ml/min Normal 50-250 [facility] Comment on above: Performed By: #### L 100.0100, L500.2500 #### [facility] [address] [place], [address] GAP 11 Normal 5-15 [facility] Comment on above: Performed By: #### L 100.0100, L500.2500 #### [facility] [address] [place], [address] GFR/1.73 sq M.predicted among non-blacks MDRD (S/P/Bld) [Vol rate/Area] 97 mL/min/{1.73_m2} Normal >60 [facility] Comment on above: Result Comment: mL/m in/1.73m2 CKD-EPI Creatinine Equation (2020) Performed By: #### L 100.0100, L500.2500 #### [facility] [address] [place], [address] Glucose [Mass/Vol] 85 mg/dL Normal 70-99 [facility] Comment on above: Performed By: #### L 100.0100, L500.2500 #### [facility] [address] [place], [address] Potassium [Moles/Vol] 3.1 mmol/L Low 3.3-5.1 [facility] Comment on above: Performed By: #### L 100.0100, L500.2500 #### [facility] [address] [place], [address] Sodium [Moles/Vol] 137 mmol/L Normal 133-145 [facility] Comment on above: Performed By: #### L 100.0100, L500.2500 #### [facility] [address] [place], [address] Urea nitrogen [Mass/Vol] 8 mg/dL Normal 4-19 [facility] Comment on above: Performed By: #### L 100.0100, L500.2500 #### [facility] [address] [place], [address] Basophil percentageOrdered B y: Josh Bates on 10-24-2024 Basophils/100 WBC (Bld) 0.8 % 0-1 [facility] Bilirubin Test strip Ql (U)O rdered By: Josh Bates on 10-24-2024 Bilirubin Ql (U) Negative Negative [facility] Blood manual differential co mment interpretation (narrative result)Ordered By: Josh Bates on 10-24-2024 Manual differential comment Yair (Bld) [Interp] SCANNED [facility] Comment on above: LYMPHOPENIA PRESENT CTA Chest W/WO Contraston CTA Chest W/WO Contrast [facility] Imaging Services [address] [place] [address] CTA Chest W/WO Contrast MR#: [id number] Acct: [id number] Name: MARIMAR WANG Rep #: [id number] : 1960 F 64 From: Betsey Obrien MD PCP: [facility] Arriola Status: REG ER Study: CTA Chest W/WO Contrast Date of Exam: 10/24/24 Exam# [id number] Ordering Dr: Josh Bates [employer] PR[employer]MadayC PROCEDURE: CTA CHEST W/WO CONTRAST 10/24/2024 REASON [...] Location: [facility] CC: [facility]AI Arriaga; SINAI Bates Pre Owned Sales Manager: Signed Normal [facility] Carbon dioxide, total [Moles /volume] in Central venous bloodOrdered By: Josh Bates on 10-24-2024 CO2 [Moles/Vol] 21.7 mmol/L 21.0-32.0 [facility] Chloride assayOrdered By: Cy Bates on 10-24-2024 Chloride [Moles/Vol] 105 mmol/L 98-108 [facility] Emergency Department Summary on 10-24-2024 Emergency Department Summary [facility] Department [address] [place] [address] Emergency Department Summary 10/24/24 MR#: [id number] Acct: [id number] Name: MARIMAR WANG Rep #: [id number] : 1960 64 From: Rigoberto Napier PCP: Julio Arriaga, [employer] Status:DEP ER Location: ED HPI History of [...] who told him to go to the [facility] apartment. Patient also states that over the [...] who told him to go to the [facility] apartment. Patient also states that over the last several weeks has been having difficulty urinating, and not feeling like she is emptying. [facility] Medical History Squamous cell cancer of [...] [facility] 6 09/01/24 History peg [id number] n 1 1 drp OP 4X/DAY DRY [...] 10/02/24. Instru (more content not included)... Normal [facility] Eosinophil percentageOrdered By: Josh Bates on 10-24-2024 Eosinophils/100 WBC (Bld) 0.8 % 0-5 [facility] Epithelial cells.squamous LM Ql (Urine sed)Ordered By: Josh Bates on 10-24-2024 Epithelial cells.squamous LM.HPF (Urine sed) [#/Area] 0 /[HPF] 5-10 [facility] Erythrocyte distribution wid th ratioOrdered By: Josh Bates on 10-24-2024 Erythrocyte distribution width (RBC) [Ratio] 18.9 % High 11.6-14.6 [facility] Erythrocyte distribution wid th standard deviationOrdered By: Josh Bates on 10-24-2024 Erythrocyte distribution width (RBC) [Entitic vol] 54.4 fL High 35.1-43.9 [facility] Erythrocyte distribution width (RBC) [Ratio] 54.4 fl High 35.1-43.9 [facility] Estimation of creatinine olga aranceOrdered By: Josh Bates on 10-24-2024 Estimated Creatinine Clearance Calc 73.11 ml/min 50-250 [facility] GFR/1.73 sq M.predicted brunilda g non-blacks MDRD (S/P/Bld) [Vol rate/Area]Ordered By: Josh Bates on 10-24-2024 Estimated GFR (MDRD) Non-Af Amer 97 >60 [facility] Comment on above: mL/min/1.73m2 CKD-EP I Creatinine Equation (2020) Glomerular filtration rate ( GFR) estimation/1.73 sq m using serum, plasma, or whole bOrdered By: Josh Bates on 10-24-2024 GFR/1.73 sq M.predicted among non-blacks MDRD (S/P/Bld) [Vol rate/Area] 97 mL/min/{1.73_m2} >60 [facility] Comment on above: mL/min/1.73m2 CKD-EP I Creatinine Equation (2020) Glucose Ql (U)Ordered By: Cy Bates on 10-24-2024 Urine Glucose (UA) Normal mg/dl Normal [facility] Hematocrit Auto (Bld) [Volum e fraction]Ordered By: Josh Bates on 10-24-2024 Hematocrit (Bld) [Volume fraction] 31.2 % Low 37-47 [facility] Hemoglobin measurementOrdere d By: Josh Bates on 10-24-2024 Hemoglobin (Bld) [Mass/Vol] 10.1 g/dL Low 12.0-15.0 [facility] Immature granulocytes/100 WB C Auto (Bld)Ordered By: Josh Bates on 10-24-2024 Immature granulocytes/100 WBC (Bld) 0.400 % 0.0-0.9 [facility] Comment on above: IG% - Immature Granu locytes (promyelocytes, myelocytes and metamyelocytes) > 1% indicates that a LEFT SHIFT is Present. Influenza virus A and B and SARS-CoV-2 (COVID-19) and Respiratory syncytial virus RNAOrdered By: Josh Bates on 10-24-2024 SARS-CoV-2 (COVID-19) RNA CORAL+probe Ql (Unsp spec) [facility] Ketones Test strip Ql (U)Ord ered By: Josh Bates on 10-24-2024 Ketones Ql (U) Negative Negative [facility] L501.4021on 10-24-2024 Trop T High Sen 14 ng/L Normal <=14 [facility] Comment on above: Performed By: #### L 503.7505, L501.4021 ####[facility] [address] [place], [address] L503.7505on 10-24-2024 Natriuretic peptide B (Bld) [Mass/Vol] 1345 pg/mL High <=900 [facility] Comment on above: Result Comment: Hear t Failure Unlikely: < 300 pg/mL Heart Failure Likely < 50 Years: > 450 pg/mL 50-75 Years: > 900 pg/mL >75 Years: > 1800 pg/mL Performed By: #### L 503.7505, L501.4021 ####[facility] [address] [place], [place], [id number] Laboratory - Chemistry and C hemistry - challengeOrdered By: Josh Bates on 10-24-2024 Natriuretic peptide B (Bld) [Mass/Vol] 1345 pg/mL High <900 [facility] Comment on above: Heart Failure Unlike ly: < 300 pg/mLHeart Failure Likely< 50 Years: > 450 pg/mL50-75 Years: > 900 pg/mL>75 Years: > 1800 pg/mL Lymphocytes Auto (Unsp spec) [#/Vol]Ordered By: Josh Bates on 10-24-2024 Lymphocytes (Bld) [#/Vol] 0.48 10*3/uL Low 0.83-4.51 [facility] Lymphocytes/100 WBC Auto (Un sp spec)Ordered By: Josh Bates on 10-24-2024 Lymphocytes/100 WBC (Bld) 18.2 % Low 19-41 [facility] M100.678on 10-24-2024 M100.678 SARS-CoV-2 (COVID 19 ) Negative INFLUENZA A Negative INFLUENZA B Negative RSV PCR Negative Normal [facility] Comment on above: Performed By: #### M 100.678 ####[facility] [address] [place], [place], [id number] MCV (mean corpuscular volume ) determinationOrdered By: Josh Bates on 10-24-2024 MCV (RBC) [Entitic vol] 84.6 fL 81-99 [facility] Manual differential comment Yair (Bld) [Interp]Ordered By: Josh Bates on 10-24-2024 Differential Comment SCANNED [facility] Comment on above: LYMPHOPENIA PRESENT Mean corpuscular hemoglobin (MCH) determinationOrdered By: Josh Bates on 10-24-2024 MCH (RBC) [Entitic mass] 27.4 pg 27.0-32.0 [facility] Mean corpuscular hemoglobin concentration (MCHC) determinationOrdered By: Josh Bates on 10-24-2024 MCHC (RBC) [Mass/Vol] 32.4 g/dL 32-36 [facility] Mean platelet volume determi nationOrdered By: Josh Bates on 10-24-2024 Platelet mean volume (Bld) [Entitic vol] 10.2 fL 6.2-12.0 [facility] Microscopic analysis of urin e for red blood cells (RBC)Ordered By: Josh Bates on 10-24-2024 Microscopic analysis of urine for red blood cells (RBC) 0 SEEN /hpf 0-5 [facility] Urine RBC 0 SEEN /hpf 0-5 [facility] Monocyte percentageOrdered B y: Josh Bates on 10-24-2024 Monocytes/100 WBC (Bld) 24.2 % High 0-10 [facility] Mucus LM Ql (Urine sed)Order ed By: Josh Bates on 10-24-2024 Mucus Ql (Urine sed) 0 SEEN /hpf [facility] Neutrophil percentageOrdered By: Josh Bates on 10-24-2024 Neutrophils/100 WBC (Bld) 55.6 % 47-70 [facility] Nitrite Test strip Ql (U)Ord ered By: Josh Bates on 10-24-2024 Nitrite Ql (U) Negative Negative [facility] No Panel InformationOrdered By: Josh Bates on 10-24-2024 Troponin T High Sensitivity 14 ng/L <14 [facility] Nucleated red blood cell per centageOrdered By: Josh Bates on 10-24-2024 Nucleated RBC/100 WBC (Bld) [Ratio] 0 % 0-5 [facility] Pathologist review Yair (Unsp spec) [Interp]Ordered By: Josh Bates on 10-24-2024 Differential Pathologist's Review May foll [facility] Platelet countOrdered By: Cy Bates on 10-24-2024 Platelets (Bld) [#/Vol] 110 10*3/uL Low 150-450 [facility] Potassium (Unsp spec) [Mass/ Vol]Ordered By: Josh Bates on 10-24-2024 Potassium [Moles/Vol] 3.1 mmol/L Low 3.3-5.1 [facility] Potassium measurement (mass/ volume)Ordered By: Josh Bates on 10-24-2024 Potassium (Unsp spec) [Mass/Vol] 3.1 mmol/L Low 3.3-5.1 [facility] Protein Test strip Ql (U)Ord ered By: Josh Bates on 10-24-2024 Protein Ql (U) 15 mg/dl High Negative [facility] RBC Auto (Bld) [#/Vol]Ordere d By: Josh Bates on 10-24-2024 RBC (Bld) [#/Vol] 3.69 10*6/uL Low 4.2-5.4 [facility] Review by pathologistOrdered By: Josh Bates on 10-24-2024 Pathologist review Yair (Unsp spec) [Interp] N/A [facility] Comment on above: Pathology review can celed due to updated review criteria.Previous reported result: Mary swain Edited by: TIFF on 12/03/24:1202 AMENDED REPORT 12/03/24 1202 PATH REV previously reported as: Mary swain Serum creatinine measurement (mass/volume)Ordered By: Josh Bates on 10-24-2024 Creatinine [Mass/Vol] 0.67 mg/dL Low 0.70-1.20 [facility] Serum glucose measurement (m ass/volume)Ordered By: Josh Bates on 10-24-2024 Glucose [Mass/Vol] 85 mg/dL 70-99 [facility] Serum or plasma calcium alexis urement (mass/volume)Ordered By: Josh Bates on 10-24-2024 Calcium [Mass/Vol] 8.9 mg/dL 7.6-11.0 [facility] Serum or plasma urea nitroge n measurement (mass/volume)Ordered By: Josh Bates on 10-24-2024 Urea nitrogen [Mass/Vol] 8 mg/dL 4-19 [facility] Sodium levelOrdered By: Josh Bates on 10-24-2024 Sodium [Moles/Vol] 137 mmol/L 133-145 [facility] Squamous epithelial cells de tection in urine sediment by light microscopyOrdered By: Josh Bates on 10-24-2024 Epithelial cells.squamous LM Ql (Urine sed) 0 SEEN /hpf -10 [facility] Troponin T.cardiac High sens itivity method [Mass/Vol]Ordered By: Josh Bates on 10-24-2024 Troponin T High Sensitivity 2 Hour 13 ng/L <14 [facility] Comment on above: Hemolysis present, R esults could be affected. Troponin T.cardiac [Mass/vol ume] in Serum or Plasma by High sensitivity methodOrdered By: Josh Bates on 10-24-2024 Troponin T.cardiac High sensitivity method [Mass/Vol] 13 ng/L <14 [facility] Comment on above: Hemolysis present, R esults could be affected. Urinalysis, Completeon 10-24 BACTERIA 0 SEEN Normal None Seen [facility] Comment on above: Order Comment: RENALDO TER SPECIMEN Performed By: #### L 400.0001 #### [facility] Laboratory [address] [place], [address] EPI,SQUAMOUS 0 SEEN Normal - [facility] Comment on above: Order Comment: RENALDO TER SPECIMEN Performed By: #### L 400.0001 #### [facility] [address] [place], [address] Mucus Ql (Urine sed) 0 SEEN Normal [facility] Comment on above: Order Comment: RENALDO TER SPECIMEN Performed By: #### L 400.0001 #### [facility] [address] [place], [address] RBC 0 SEEN Normal 0-5 [facility] Comment on above: Order Comment: RENALDO TER SPECIMEN Performed By: #### L 400.0001 #### [facility] [address] [place], [address] WBC 0 SEEN Normal 0-5 [facility] Comment on above: Order Comment: RENALDO TER SPECIMEN Performed By: #### L 400.0001 #### [facility] [address] [place], [address] Urine blood detectionOrdered By: Josh Bates on 10-24-2024 Urine Occult Blood 10 /ul High Negative [facility] Urine clarityOrdered By: Maegan Bates on 10-24-2024 Clarity (U) Clear Clear [facility] Urine color determinationOrd ered By: Josh Bates on 10-24-2024 Color (U) Yellow Yellow [facility] Urine glucose detectionOrder ed By: Josh Bates on 10-24-2024 Glucose Ql (U) Normal mg/dl Normal [facility] Urine leukocyte esterase det ection by dipstickOrdered By: Josh Bates on 10-24-2024 Leukocyte esterase Test strip Ql (U) Negative Negative [facility] Urine pHOrdered By: Josh russ on 10-24-2024 pH (U) 6.0 [pH] 5.0 - 8.0 [facility] Urine sediment bacteria coun t by microscopy (number/high power field)Ordered By: Josh Bates on 10-24-2024 Bacteria LM.HPF (Urine sed) [#/Area] 0 /[HPF] None Seen [facility] Urine specific gravity measu rementOrdered By: Josh Bates on 10-24-2024 Specific gravity (U) [Rel density] 1.010 1.002-1.030 [facility] Urine urobilinogen measureme ntOrdered By: Josh Bates on 10-24-2024 Urobilinogen Ql (U) Normal mg/dl Normal [facility] Urobilinogen Ql (U)Ordered B y: Josh Bates on 10-24-2024 Urine Urobilinogen Normal mg/dl Normal [facility] White blood cell (WBC) count Ordered By: Josh Bates on 10-24-2024 WBC (Bld) [#/Vol] 2.6 10*3/uL Low 4.4-11.0 [facility] White blood cell countOrdere d By: Josh Bates on 10-24-2024 Urine WBC 0 SEEN /hpf 0-5 [facility] White blood cell count 0 SEEN /hpf 0-5 [facility] Urinalysis complete panel (U )on 10-22-2024 Bacteria uL 1121.1 uL High - 941 uL [facility] Bilirubin Ql (U) Negative Negative [facility] Clarity (Unsp spec) Clear Clear [facility] Color (U) Yellow Yellow [facility] Epithelial cells LM.HPF (Urine sed) [#/Area] None Seen /HPF [facility] Glucose Test strip (U) [Mass/Vol] Negative Negative [facility] Hemoglobin Ql (U) Negative Negative [facility] Hyaline casts (Urine sed) [#/Area] 0 /[LPF] 0 /LPF [facility] Interpretation and review of laboratory results Abnormal [facility] Ketones Ql (U) Trace Abnormal Negative [facility] Leukocyte esterase Test strip Ql (U) Negative Negative [facility] Nitrite Ql (U) Negative Negative [facility] pH (U) 6 [pH] NINF - 8.5 [facility] Protein (U) [Mass/Vol] 1+ Abnormal Negative [facility] RBC LM.HPF (Urine sed) [#/Area] 3-5 /HPF Abnormal 0-2 /HPF [facility] Specific gravity (U) [Rel density] 1.024 1.005 - 1.030 [facility] Urobilinogen Ql (U) 0.2 EU/dL 0.2-1.0 EU/dL [facility] WBC LM.HPF (Urine sed) [#/Area] 6-10 /HPF Abnormal 0-5 /HPF [facility] This test was candelaria chaudhary and its performance characteristics determined by [facility]'s [facility] ([facility]). It has not been cleared or approved by the FDA. [facility] is regulated under CLIA as qualified to perform high-complexity testing. This test is used for clinical purposes. It should not be regarded as investigational or for research. [facility] BACTERIA UL 1121.1 uL High Negative [facility] Comment on above: Order Comment: Speci men Type: URINE SPECIMENOrdering Facility: [facility] Address: [address] [place] [address] Performed By: #### 2 4356-8 ####[facility] LABCLIA [id number] [place] [address] [place] Bilirubin Ql (U) Negative Normal Negative [facility] Comment on above: Order Comment: Speci men Type: URINE SPECIMENOrdering Facility: [facility] Address: [address] [place] [place] [id number] Performed By: #### 2 4356-8 ####[facility] LABCLIA [id number] [address], [facility]95 [place] Clarity (Unsp spec) Clear Normal Clear [facility] Comment on above: Order Comment: Speci men Type: URINE SPECIMENOrdering Facility: [facility] Address: [address] [place] [address] Performed By: #### 2 4356-8 ####[facility] LABCLIA [id number] [place] [address] [place] Color (U) Yellow Normal Yellow [facility] Comment on above: Order Comment: Speci men Type: URINE SPECIMENOrdering Facility: [facility] Address: [address] [place] [address] Performed By: #### 2 4356-8 ####[facility] LABIA [id number] [address], [place] [address] [place] Epithelial cells LM.HPF (Urine sed) [#/Area] None Seen Normal [facility] Comment on above: Order Comment: Speci men Type: URINE SPECIMENOrdering Facility: [facility] Address: [address] [place] [address] Performed By: #### 2 4356-8 ####[facility] LABCLIA [id number] [address], [facility]95 [place] Glucose Test strip (U) [Mass/Vol] Negative Normal Negative [facility] Comment on above: Order Comment: Speci men Type: URINE SPECIMENOrdering Facility: [facility] Address: [address] [place] [address] Performed By: #### 2 4356-8 ####[facility] LABCLIA [id number] [place] [id number] [place] Hemoglobin Ql (U) Negative Normal Negative [facility] Comment on above: Order Comment: Speci men Type: URINE SPECIMENOrdering Facility: [facility] Address: [address] [place] [address] Performed By: #### 2 4356-8 ####[facility] LABCLIA [id number] [address] [place] [address] [place] Hyaline casts (Urine sed) [#/Area] 0 /[LPF] Normal 0 /LPF [facility] Comment on above: Order Comment: Speci men Type: URINE SPECIMENOrdering Facility: [facility] Address: [address] [place] [address] Performed By: #### 2 4356-8 ####[facility] LABCLIA [id number] [address], [facility]95 [place] Ketones Ql (U) Trace Abnormal Negative [facility] Comment on above: Order Comment: Speci men Type: URINE SPECIMENOrdering Facility: [facility] Address: [address] [place] [address] Performed By: #### 2 4356-8 ####[facility] LABCLIA [id number] [address], [facility]95 [place] Leukocyte esterase Test strip Ql (U) Negative Normal Negative [facility] Comment on above: Order Comment: Speci men Type: URINE SPECIMENOrdering Facility: [facility] Address: [address] [place] [address] Performed By: #### 2 4356-8 ####[facility] LABCLIA [id number] [address] [place] [address] [place] Nitrite Ql (U) Negative Normal Negative [facility] Comment on above: Order Comment: Speci men Type: URINE SPECIMENOrdering Facility: [facility] Address: [address] [place] [address] Performed By: #### 2 4356-8 ####[facility] LABCLIA [id number] [address] [place] [address] [place] pH (U) 6.0 [pH] Normal <8.5 [facility] Comment on above: Order Comment: Speci men Type: URINE SPECIMENOrdering Facility: [facility] Address: [address] [place] [address] Performed By: #### 2 4356-8 ####[facility] LABIA [id number] [place] [address] [place] Protein (U) [Mass/Vol] 1+ Abnormal Negative [facility] Comment on above: Order Comment: Speci men Type: URINE SPECIMENOrdering Facility: [facility] Address: [address] [place] [address] Performed By: #### 2 4356-8 ####[facility] LABIA [id number] [place] [address] [place] RBC LM.HPF (Urine sed) [#/Area] 3-5 /HPF Abnormal 0-2 /HPF [facility] Comment on above: Order Comment: Speci men Type: URINE SPECIMENOrdering Facility: [facility] Address: [address] [place] [address] Performed By: #### 2 4356-8 ####[facility] [id number] [address] [place] Specific gravity (U) [Rel density] 1.024 Normal 1.005-1.030 [facility] Comment on above: Order Comment: Speci men Type: URINE SPECIMENOrdering Facility: [facility] Address: [address] [place] [address] Performed By: #### 2 4356-8 ####[facility] [id number] [place] [address] [place] Urobilinogen Ql (U) 0.2 EU/dL Normal 0.2-1.0 EU/dL [facility] Comment on above: Order Comment: Speci men Type: URINE SPECIMENOrdering Facility: [facility] Address: [address] [place] [address] Performed By: #### 2 4356-8 ####[facility] [id number] [place] [address] [place] WBC LM.HPF (Urine sed) [#/Area] 6-10 /HPF Abnormal 0-5 /HPF [facility] Comment on above: Order Comment: Speci men Type: URINE SPECIMENOrdering Facility: [facility] Address: [address] [place] [address] Performed By: #### 2 4356-8 ####[facility] LABIA [id number] [place] [address] [place] CNPNon 10-21-2024 CNPN Normal [facility] CNOVon 10-20-2024 CNOV Normal [facility] CBC W Auto Differential pane l (Bld)on 10-19-2024 Basophils (Bld) [#/Vol] 10*3/uL Normal <0.11 C [facility] Comment on above: Order Comment: Speci men Type: BLOOD SPECIMENOrdering Facility: [facility] Address: [address] [place] [address] Performed By: #### 5 7021-8 ####[facility] [id number] [place] [address] [place] Basophils/100 WBC (Bld) 0.4 % Normal C [facility] Comment on above: Order Comment: Speci men Type: BLOOD SPECIMENOrdering Facility: [facility] Address: [address] [place] [address] Performed By: #### 5 7021-8 ####[facility] [id number] [place] [address] [place] Differential cell count method Nom (Bld) Auto Normal [facility] Comment on above: Order Comment: Speci men Type: BLOOD SPECIMENOrdering Facility: [facility] Address: [address] [place] [address] Performed By: #### 5 7021-8 ####[facility] MILLWNCLIA [id number] [place] [address] [place] Eosinophils (Bld) [#/Vol] 0.03 10*3/uL Normal <0.46 [facility] Comment on above: Order Comment: Speci men Type: BLOOD SPECIMENOrdering Facility: [facility] Address: [address] [place] [address] Performed By: #### 5 7021-8 ####[facility] HOSPITALLIA [id number] [place] [address] [place] Eosinophils/100 WBC (Bld) 1.2 % Normal [facility] Comment on above: Order Comment: Speci men Type: BLOOD SPECIMENOrdering Facility: [facility] Address: [address] [place] [address] Performed By: #### 5 7021-8 ####[facility] H[facility]ITALLIA [id number] [place] [address] [place] Erythrocyte distribution width (RBC) [Ratio] 17.1 % High 11.5-15.0 [facility] Comment on above: Order Comment: Speci men Type: BLOOD SPECIMENOrdering Facility: [facility] Address: [address] [place] [address] Performed By: #### 5 7021-8 ####[facility]ILDRENWNCLIA [id number] [place] [address] [place] Hematocrit (Bld) [Volume fraction] 34.3 % Low 36.0-46.0 [facility] Comment on above: Order Comment: Speci men Type: BLOOD SPECIMENOrdering Facility: [facility] Address: [address] [place] [address] Performed By: #### 5 7021-8 ####[facility]ITALLIA [id number] [place] [address] [place] Hemoglobin (Bld) [Mass/Vol] 10.8 g/dL Low 11.5-15.5 [facility] Comment on above: Order Comment: Speci men Type: BLOOD SPECIMENOrdering Facility: [facility] Address: [address] [place] [address] Performed By: #### 5 7021-8 ####[facility]ITALA [id number] [place] [address] [place] Immature granulocytes (Bld) [#/Vol] 10*3/uL Normal <0.10 [facility] Comment on above: Order Comment: Speci men Type: BLOOD SPECIMENOrdering Facility: [facility] Address: [address] [place] [address] Performed By: #### 5 7021-8 ####[facility] DORAL [id number] [place] [address] [place] Immature granulocytes/100 WBC (Bld) 0.4 % Normal [facility] Comment on above: Order Comment: Speci men Type: BLOOD SPECIMENOrdering Facility: [facility] Address: [address] [place] [address] Performed By: #### 5 7021-8 ####[facility]ITALA [id number] [place] [address] [place] Lymphocytes (Bld) [#/Vol] 0.26 10*3/uL Low 1.00-4.00 [facility] Comment on above: Order Comment: Speci men Type: BLOOD SPECIMENOrdering Facility: [facility] Address: [address] [place] [address] Performed By: #### 5 7021-8 ####[facility]ALL[facility] [id number] [place] [address] [place] Lymphocytes/100 WBC (Bld) 10.4 % Normal [facility] Comment on above: Order Comment: Speci men Type: BLOOD SPECIMENOrdering Facility: [facility] Address: [address] [place] [address] Performed By: #### 5 7021-8 ####[facility] ALYSSAJamirNCBALKE [id number] [place] [address] [place] MCH (RBC) [Entitic mass] 26.9 pg Normal 26.0-34.0 [facility] Comment on above: Order Comment: Speci men Type: BLOOD SPECIMENOrdering Facility: [facility] Address: [address] [place] [address] Performed By: #### 5 7021-8 ####[facility]ITALNC[facility] [id number] [place] [address] [place] MCHC (RBC) [Mass/Vol] 31.5 g/dL Normal 30.5-36.0 [facility] Comment on above: Order Comment: Speci men Type: BLOOD SPECIMENOrdering Facility: [facility] Address: [address] [place] [address] Performed By: #### 5 7021-8 ####[facility] HOSPITALNCA [id number] [place] [address] [place] MCV (RBC) [Entitic vol] 85.5 fL Normal 80.0-100.0 [facility] Comment on above: Order Comment: Speci men Type: BLOOD SPECIMENOrdering Facility: [facility] Address: [address] [place] [address] Performed By: #### 5 7021-8 ####[facility] HOSPITALNCA [id number] [place] [address] [place] Monocytes (Bld) [#/Vol] 0.36 10*3/uL Normal <0.87 [facility] Comment on above: Order Comment: Speci men Type: BLOOD SPECIMENOrdering Facility: [facility] Address: [address] [place] [address] Performed By: #### 5 7021-8 ####[facility] ALYSSAKEENEZEVLIA [id number] [place] [address] [place] Monocytes/100 WBC (Bld) 14.4 % Normal C [facility] Comment on above: Order Comment: Speci men Type: BLOOD SPECIMENOrdering Facility: [facility] Address: [address] [place] [address] Performed By: #### 5 7021-8 ####[facility]ITALLIA [id number] [place] [address] [place] Neutrophils (Bld) [#/Vol] 1.83 10*3/uL Normal 1.45-7.50 [facility] Comment on above: Order Comment: Speci men Type: BLOOD SPECIMENOrdering Facility: [facility] Address: [address] [place] [address] Performed By: #### 5 7021-8 ####[facility]ITALA [id number] [place] [address] [place] Neutrophils/100 WBC (Bld) 73.2 % Normal [facility] Comment on above: Order Comment: Speci men Type: BLOOD SPECIMENOrdering Facility: [facility] Address: [address] [place] [address] Performed By: #### 5 7021-8 ####[facility]ALL[facility] [id number] [place] [address] [place] Nucleated RBC (Bld) [#/Vol] 10*3/uL Normal <0.01 [facility] Comment on above: Order Comment: Speci men Type: BLOOD SPECIMENOrdering Facility: [facility] Address: [address] [place] [address] Performed By: #### 5 7021-8 ####[facility]ITALLIA [id number] [place] [address] [place] Nucleated RBC/100 WBC (Bld) [Ratio] 0.0 /100 WBC Normal [facility] Comment on above: Order Comment: Speci men Type: BLOOD SPECIMENOrdering Facility: [facility] Address: [address] [place] [address] Performed By: #### 5 7021-8 ####[facility] HOSPITALNICOLE [id number] [place] [address] [place] Platelet mean volume (Bld) [Entitic vol] 10.8 fL Normal 9.0-12.7 [facility] Comment on above: Order Comment: Speci men Type: BLOOD SPECIMENOrdering Facility: [facility] Address: [address] [place] [address] Performed By: #### 5 7021-8 ####[facility] HOSPITALZEVFroy [id number] [place] [address] [place] Platelets (Bld) [#/Vol] 118 10*3/uL Low 150-400 [facility] Comment on above: Order Comment: Speci men Type: BLOOD SPECIMENOrdering Facility: [facility] Address: [address] [place] [address] Performed By: #### 5 7021-8 ####[facility] HOSPITALBLAKE [id number] [place] [address] [place] RBC (Bld) [#/Vol] 4.01 10*6/uL Normal 3.90-5.20 [facility] Comment on above: Order Comment: Speci men Type: BLOOD SPECIMENOrdering Facility: [facility] Address: [address] [place] [address] Performed By: #### 5 7021-8 ####[facility]PITALNCLIA [id number] [place] [address] [place] WBC (Bld) [#/Vol] 2.50 10*3/uL Low 3.70-11.00 [facility] Comment on above: Order Comment: Speci men Type: BLOOD SPECIMENOrdering Facility: [facility] Address: [address] [place] [address] Performed By: #### 5 7021-8 ####[facility]ITALNCLIA [id number] [place] [address] [place] CNPNon 10-19-2024 CNPN Normal [facility] Comprehensive metabolic 2000 panelon 10-19-2024 Albumin [Mass/Vol] 3.7 g/dL Low 3.9-4.9 [facility] Comment on above: Order Comment: Speci men Type: BLOOD SPECIMENOrdering Facility: [facility] Address: [address] [place] [address] Performed By: #### 2 4323-8 ####[facility] HOSPITALNCA [id number] [place] [address] [place] ALP [Catalytic activity/Vol] 83 U/L Normal 34-123 [facility] Comment on above: Order Comment: Speci men Type: BLOOD SPECIMENOrdering Facility: [facility] Address: [address] [place] [address] Performed By: #### 2 4323-8 ####[facility]ITALLIA [id number] [place] [address] [place] ALT [Catalytic activity/Vol] 13 U/L Normal 7-38 [facility] Comment on above: Order Comment: Speci men Type: BLOOD SPECIMENOrdering Facility: [facility] Address: [address] [place] [address] Performed By: #### 2 4323-8 ####[facility]PITALNCLIA [id number] [place] [address] [place] Anion gap [Moles/Vol] 12 mmol/L Normal 8-15 [facility] Comment on above: Order Comment: Speci men Type: BLOOD SPECIMENOrdering Facility: [facility] Address: [address] [place] [address] Performed By: #### 2 4323-8 ####[facility] ALYSSAJAZMYN [id number] [place] [address] [place] AST [Catalytic activity/Vol] 18 U/L Normal 13-35 [facility] Comment on above: Order Comment: Speci men Type: BLOOD SPECIMENOrdering Facility: [facility] Address: [address] [place] [address] Performed By: #### 2 4323-8 ####[facility] HOSPITALNCBLAKE [id number] [place] [address] [place] Bilirubin [Mass/Vol] 0.2 mg/dL Normal 0.2-1.3 [facility] Comment on above: Order Comment: Speci men Type: BLOOD SPECIMENOrdering Facility: [facility] Address: [address] [place] [address] Performed By: #### 2 4323-8 ####[facility]ITALNCLIA [id number] [place] [address] [place] Calcium [Mass/Vol] 9.2 mg/dL Normal 8.5-10.2 [facility] Comment on above: Order Comment: Speci men Type: BLOOD SPECIMENOrdering Facility: [facility] Address: [address] [place] [address] Performed By: #### 2 4323-8 ####[facility]ITALNCLIA [id number] [place] [address] [place] Chloride [Moles/Vol] 101 mmol/L Normal 98-107 [facility] Comment on above: Order Comment: Speci men Type: BLOOD SPECIMENOrdering Facility: [facility] Address: [address] [place] [address] Performed By: #### 2 4323-8 ####[facility] SHALONDAWNCLIA [id number] [place] [address] [place] CO2 [Moles/Vol] 23 mmol/L Normal 22-30 [facility] Comment on above: Order Comment: Speci men Type: BLOOD SPECIMENOrdering Facility: [facility] Address: [address] [place] [address] Performed By: #### 2 4323-8 ####[facility]OSPITALLIA [id number] [place] [address] [place] Creatinine [Mass/Vol] 0.64 mg/dL Normal 0.58-0.96 [facility] Comment on above: Order Comment: Speci men Type: BLOOD SPECIMENOrdering Facility: [facility] Address: [address] [place] [address] Performed By: #### 2 4323-8 ####[facility]PITALA [id number] [place] [address] [place] Creatinine and Glomerular filtration rate.predicted panel (S/P/Bld) 98 mL/min/1.73m??? Normal >=60 [facility] Comment on above: Order Comment: Speci men Type: BLOOD SPECIMENOrdering Facility: [facility] Address: [address] [place] [address] Result Comment: Sonia mated Glomerular Filtration Rate [...] Performed By: #### 2 4323-8 ####[facility]ITALNCLIA [id number] [place] [address] [place] Glucose [Mass/Vol] 103 mg/dL High 74-99 [facility] Comment on above: Order Comment: Speci men Type: BLOOD SPECIMENOrdering Facility: [facility] Address: [address] [place], [place] [address] Result Comment: The [place] [employer] (ADA) provides guidance for cutoff [...] Standards of Medical Care in Diabetes 2016, [place] [employer]. Diabetes Care. 2016.39(Suppl 1). Performed By: #### 2 4323-8 ####[facility] DORAL [id number] [place] [address] [place] Potassium [Moles/Vol] 3.2 mmol/L Low 3.7-5.1 [facility] Comment on above: Order Comment: Speci men Type: BLOOD SPECIMENOrdering Facility: [facility] Address: [address] [place] [address] Performed By: #### 2 4323-8 ####[facility] [id number] [place] [address] [place] Protein [Mass/Vol] 6.6 g/dL Normal 6.3-8.0 [facility] Comment on above: Order Comment: Speci men Type: BLOOD SPECIMENOrdering Facility: [facility] Address: [address] [place], [place] [address] Performed By: #### 2 4323-8 ####[facility] D[facility] [id number] [place] [address] [place] Sodium [Moles/Vol] 136 mmol/L Normal 136-144 [facility] Comment on above: Order Comment: Speci men Type: BLOOD SPECIMENOrdering Facility: [facility] Address: [address] [id number] Performed By: #### 2 4323-8 ####[facility] ALYSSAKEENENICOLE [id number] [address] OF [facility] Urea nitrogen [Mass/Vol] 9 mg/dL Normal 7-21 [facility] Comment on above: Order Comment: Speci men Type: BLOOD SPECIMENOrdering Facility: [facility] Address: [address] [place] [address] Performed By: #### 2 4323-8 ####[facility] D[facility]AL [id number] [address] [place] Venous Duplex US, Unilateral on 10-19-2024 Venous Duplex US, Unilateral [facility] [address] [place] [address] Venous Duplex US, Unilateral 10/19/24 1404 MR#: [id number] Acct: [id number] Name: MARIMAR WANG Rep #: [id number] : 1960 64 From: Lincoln Richards MD Attending Dr: Dr. Josh Bennett, Status: REG CL I Ordering Dr: Josh Bennett DO Date: 10/19/24 Location: [facility] Sex: F C Admitted: Reason For Study [...] ??? 10/19/241755 Date Lincoln Richards MD CC: [employer] Julio Arriaga; Dr. Josh Bennett DO Date Dictated: 10/19/241403 Date Transcribed: 10/19/241755 Pre Owned Sales Manager: Signed Normal [facility] Venous duplex ultrasound rep ortOrdered By: Lincoln Richards on 10-19-2024 US Vein [facility] [address] [place] [address] Venous Duplex US, Unilateral 10/19/241403 MR#: [id number] Acct: [id number] Name: MARIMAR WANG Rep #:[id number] : 1960 64 From: Lincoln Roberson [...] 10/19/241755 Date _ Lincoln Richards MD CC: [employer] Julio Arriaga; Dr. Josh Bennett, ~ Date Dictated: 10/19/24 1404 Date Transcribed: 10/19/241755 Pre Owned Sales Manager: Signed [facility] Work Phone: CNPNon 10-16-2024 CNPN Normal [facility] CNOVon 10-13-2024 CNOV Normal [facility] CBC W Auto Differential pane l (Bld)on 10-12-2024 Basophils (Bld) [#/Vol] 0.05 10*3/uL [facility] Basophils/100 WBC (Bld) 1.4 % C [facility] Differential cell count method Nom (Bld) Auto [facility] Eosinophils (Bld) [#/Vol] 0.04 10*3/uL [facility] Eosinophils/100 WBC (Bld) 1.1 % [facility] Erythrocyte distribution width (RBC) [Ratio] 15.6 % High 11.5 - 15.0 % [facility] Hematocrit (Bld) [Volume fraction] 33.8 % Low 36.0 - 46.0 % [facility] Hemoglobin (Bld) [Mass/Vol] 10.4 g/dL Low 11.5 - 15.5 g/dL [facility] Immature granulocytes (Bld) [#/Vol] [facility] Immature granulocytes/100 WBC (Bld) 0.6 % [facility] Interpretation and review of laboratory results Abnormal [facility] Lymphocytes (Bld) [#/Vol] 0.48 10*3/uL Low [facility] Lymphocytes/100 WBC (Bld) 13.7 % [facility] MCH (RBC) [Entitic mass] 25.9 pg Low 26.0 - 34.0 pg [facility] MCHC (RBC) [Mass/Vol] 30.8 g/dL 30.5 - 36.0 g/dL [facility] MCV (RBC) [Entitic vol] 84.1 fL 80.0 - 100.0 fL [facility] Monocytes (Bld) [#/Vol] 0.07 10*3/uL [facility] Monocytes/100 WBC (Bld) 2 % [facility] Neutrophils (Bld) [#/Vol] 2.85 10*3/uL [facility] Neutrophils/100 WBC (Bld) 81.2 % [facility] Nucleated RBC (Bld) [#/Vol] [facility] Nucleated RBC/100 WBC (Bld) [Ratio] 0 % /100 WBC [facility] Platelet mean volume (Bld) [Entitic vol] 9.9 fL 9.0 - 12.7 fL [facility] Platelets (Bld) [#/Vol] 166 10*3/uL [facility] RBC (Bld) [#/Vol] 4.02 10*6/uL 3.90 - 5.2 0 m/uL [facility] WBC (Bld) [#/Vol] 3.51 10*3/uL Low [facility] Basophils (Bld) [#/Vol] 0.05 10*3/uL Normal <0.11 [facility] Comment on above: Order Comment: Speci men Type: BLOOD SPECIMENOrdering Facility: [facility] Address: [address] [place], [place] [address] Performed By: #### 5 7021-8 ####[facility] MILLWNCLIA [id number] [place] [address] [place] Basophils/100 WBC (Bld) 1.4 % Normal [facility] Comment on above: Order Comment: Speci men Type: BLOOD SPECIMENOrdering Facility: [facility] Address: [address] [place] [address] Performed By: #### 5 7021-8 ####[facility] HOSPITALLIA [id number] [place] [address] [place] Differential cell count method Nom (Bld) Auto Normal [facility] Comment on above: Order Comment: Speci men Type: BLOOD SPECIMENOrdering Facility: [facility] Address: [address] [place] [address] Performed By: #### 5 7021-8 ####[facility] H[facility]ITALLIA [id number] [place] [address] [place] Eosinophils (Bld) [#/Vol] 0.04 10*3/uL Normal <0.46 [facility] Comment on above: Order Comment: Speci men Type: BLOOD SPECIMENOrdering Facility: [facility] Address: [address] [place] [address] Performed By: #### 5 7021-8 ####[facility]ITALLIA [id number] [place] [address] [place] Eosinophils/100 WBC (Bld) 1.1 % Normal [facility] Comment on above: Order Comment: Speci men Type: BLOOD SPECIMENOrdering Facility: [facility] Address: [address] [place] [address] Performed By: #### 5 7021-8 ####[facility]ITALNCLIA [id number] [place] [address] [place] Erythrocyte distribution width (RBC) [Ratio] 15.6 % High 11.5-15.0 [facility] Comment on above: Order Comment: Speci men Type: BLOOD SPECIMENOrdering Facility: [facility] Address: [address] [place] [address] Performed By: #### 5 7021-8 ####[facility] D[facility] [id number] [place] [address] [place] Hematocrit (Bld) [Volume fraction] 33.8 % Low 36.0-46.0 [facility] Comment on above: Order Comment: Speci men Type: BLOOD SPECIMENOrdering Facility: [facility] Address: [address] [place] [address] Performed By: #### 5 7021-8 ####[facility] [id number] [place] [address] [place] Hemoglobin (Bld) [Mass/Vol] 10.4 g/dL Low 11.5-15.5 [facility] Comment on above: Order Comment: Speci men Type: BLOOD SPECIMENOrdering Facility: [facility] Address: [address] [place] [address] Performed By: #### 5 7021-8 ####[facility] [id number] [place] [address] [place] Immature granulocytes (Bld) [#/Vol] 10*3/uL Normal <0.10 [facility] Comment on above: Order Comment: Speci men Type: BLOOD SPECIMENOrdering Facility: [facility] Address: [address] [place] [address] Performed By: #### 5 7021-8 ####[facility] [id number] [place] [address] [place] Immature granulocytes/100 WBC (Bld) 0.6 % Normal [facility] Comment on above: Order Comment: Speci men Type: BLOOD SPECIMENOrdering Facility: [facility] Address: [address] [place] [address] Performed By: #### 5 7021-8 ####[facility] HOSPITALNICOLE [id number] [place] [address] [place] Lymphocytes (Bld) [#/Vol] 0.48 10*3/uL Low 1.00-4.00 [facility] Comment on above: Order Comment: Speci men Type: BLOOD SPECIMENOrdering Facility: [facility] Address: [address] [place] [address] Performed By: #### 5 7021-8 ####[facility] [id number] [place] [address] [place] Lymphocytes/100 WBC (Bld) 13.7 % Normal [facility] Comment on above: Order Comment: Speci men Type: BLOOD SPECIMENOrdering Facility: [facility] Address: [address] [place] [address] Performed By: #### 5 7021-8 ####[facility] [id number] [place] [address] [place] MCH (RBC) [Entitic mass] 25.9 pg Low 26.0-34.0 [facility] Comment on above: Order Comment: Speci men Type: BLOOD SPECIMENOrdering Facility: [facility] Address: [address] [place] [address] Performed By: #### 5 7021-8 ####[facility]ITALNCLIA [id number] [place] [address] [place] MCHC (RBC) [Mass/Vol] 30.8 g/dL Normal 30.5-36.0 [facility] Comment on above: Order Comment: Speci men Type: BLOOD SPECIMENOrdering Facility: [facility] Address: [address] [place] [address] Performed By: #### 5 7021-8 ####[facility] MILLWNCLIA [id number] [place] [address] [place] MCV (RBC) [Entitic vol] 84.1 fL Normal 80.0-100.0 C [facility] Comment on above: Order Comment: Speci men Type: BLOOD SPECIMENOrdering Facility: [facility] Address: [address] [place] [address] Performed By: #### 5 7021-8 ####[facility]DRENWNCLIA [id number] [place] [address] [place] Monocytes (Bld) [#/Vol] 0.07 10*3/uL Normal <0.87 [facility] Comment on above: Order Comment: Speci men Type: BLOOD SPECIMENOrdering Facility: [facility] Address: [address] [place] [address] Performed By: #### 5 7021-8 ####[facility] HOSPITALLIA [id number] [place] [address] [place] Monocytes/100 WBC (Bld) 2.0 % Normal C [facility] Comment on above: Order Comment: Speci men Type: BLOOD SPECIMENOrdering Facility: [facility] Address: [address] [place] [address] Performed By: #### 5 7021-8 ####[facility]EN[facility]CL[facility] [id number] [place] [address] [place] Neutrophils (Bld) [#/Vol] 2.85 10*3/uL Normal 1.45-7.50 [facility] Comment on above: Order Comment: Speci men Type: BLOOD SPECIMENOrdering Facility: [facility] Address: [address] [place] [address] Performed By: #### 5 7021-8 ####[facility]ITAL[facility]CLIA [id number] [place] [address] [place] Neutrophils/100 WBC (Bld) 81.2 % Normal [facility] Comment on above: Order Comment: Speci men Type: BLOOD SPECIMENOrdering Facility: [facility] Address: [address] [place] [address] Performed By: #### 5 7021-8 ####[facility] DORAL [id number] [place] [address] [place] Nucleated RBC (Bld) [#/Vol] 10*3/uL Normal <0.01 [facility] Comment on above: Order Comment: Speci men Type: BLOOD SPECIMENOrdering Facility: [facility] Address: [address] [place] [address] Performed By: #### 5 7021-8 ####[facility] D[facility]AL [id number] [place] [address] [place] Nucleated RBC/100 WBC (Bld) [Ratio] 0.0 /100 WBC Normal [facility] Comment on above: Order Comment: Speci men Type: BLOOD SPECIMENOrdering Facility: [facility] Address: [address] [place] [address] Performed By: #### 5 7021-8 ####[facility] D[facility] [id number] [place] [address] [place] Platelet mean volume (Bld) [Entitic vol] 9.9 fL Normal 9.0-12.7 [facility] Comment on above: Order Comment: Speci men Type: BLOOD SPECIMENOrdering Facility: [facility] Address: [address] [place], [place] [address] Performed By: #### 5 7021-8 ####[facility] D[facility] [id number] [place] [address] [place] Platelets (Bld) [#/Vol] 166 10*3/uL Normal 150-400 [facility] Comment on above: Order Comment: Speci men Type: BLOOD SPECIMENOrdering Facility: [facility] Address: [address] [place] [address] Performed By: #### 5 7021-8 ####[facility] ALYSSAKEENEHAMLETA [id number] [place] [address] [place] RBC (Bld) [#/Vol] 4.02 10*6/uL Normal 3.90-5.20 [facility] Comment on above: Order Comment: Speci men Type: BLOOD SPECIMENOrdering Facility: [facility] Address: [address] [place] [address] Performed By: #### 5 7021-8 ####[facility] ALYSSAKEENENCLIA [id number] [place] [address] [place] WBC (Bld) [#/Vol] 3.51 10*3/uL Low 3.70-11.00 [facility] Comment on above: Order Comment: Speci men Type: BLOOD SPECIMENOrdering Facility: [facility] Address: [address] [place] [address] Performed By: #### 5 7021-8 ####[facility] HOSPITALTIFFANIA [id number] [place] [address] [place] CNPNon 10-12-2024 CNPN Normal [facility] CNPNon 10-08-2024 CNPN Normal [facility] CNOVon 10-06-2024 CNOV Normal [facility] CNPNon 10-06-2024 CNPN Normal [facility] CBC W Auto Differential pane l (Bld)on 10-05-2024 Basophils (Bld) [#/Vol] 0.08 10*3/uL [facility] Basophils/100 WBC (Bld) 1.2 % [facility] Differential cell count method Nom (Bld) Auto [facility] Eosinophils (Bld) [#/Vol] 0.18 10*3/uL [facility] Eosinophils/100 WBC (Bld) 2.6 % [facility] Erythrocyte distribution width (RBC) [Ratio] 16.5 % High 11.5 - 15.0 % [facility] Hematocrit (Bld) [Volume fraction] 36.2 % 36.0 - 46.0 % [facility] Hemoglobin (Bld) [Mass/Vol] 11.1 g/dL Low 11.5 - 15.5 g/dL [facility] Immature granulocytes (Bld) [#/Vol] 0.03 10*3/uL [facility] Immature granulocytes/100 WBC (Bld) 0.4 % [facility] Interpretation and review of laboratory results Abnormal [facility] Lymphocytes (Bld) [#/Vol] 1.27 10*3/uL [facility] Lymphocytes/100 WBC (Bld) 18.4 % [facility] MCH (RBC) [Entitic mass] 25.6 pg Low 26.0 - 34.0 pg [facility] MCHC (RBC) [Mass/Vol] 30.7 g/dL 30.5 - 36.0 g/dL [facility] MCV (RBC) [Entitic vol] 83.6 fL 80.0 - 100.0 fL [facility] Monocytes (Bld) [#/Vol] 0.5 10*3/uL [facility] Monocytes/100 WBC (Bld) 7.2 % [facility] Neutrophils (Bld) [#/Vol] 4.84 10*3/uL [facility] Neutrophils/100 WBC (Bld) 70.2 % [facility] Nucleated RBC (Bld) [#/Vol] [facility] Nucleated RBC/100 WBC (Bld) [Ratio] 0 % /100 WBC [facility] Platelet mean volume (Bld) [Entitic vol] 10.6 fL 9.0 - 12.7 fL [facility] Platelets (Bld) [#/Vol] 240 10*3/uL [facility] RBC (Bld) [#/Vol] 4.33 10*6/uL 3.90 - 5.2 0 m/uL [facility] WBC (Bld) [#/Vol] 6.9 10*3/uL [facility] Basophils (Bld) [#/Vol] 0.08 10*3/uL Normal <0.11 [facility] Comment on above: Order Comment: Speci men Type: BLOOD SPECIMENOrdering Facility: [facility] Address: [address] [place] [address] Performed By: #### 5 7021-8 ####[facility] HOSPITALZEVLIA [id number] [place] [address] [place] Basophils/100 WBC (Bld) 1.2 % Normal [facility] Comment on above: Order Comment: Speci men Type: BLOOD SPECIMENOrdering Facility: [facility] Address: [address] [place] [address] Performed By: #### 5 7021-8 ####[facility] HOSPITALLIA [id number] [place] [address] [place] Differential cell count method Nom (Bld) Auto Normal [facility] Comment on above: Order Comment: Speci men Type: BLOOD SPECIMENOrdering Facility: [facility] Address: [address] [place] [address] Performed By: #### 5 7021-8 ####[facility] HOSPITALA [id number] [place] [address] [place] Eosinophils (Bld) [#/Vol] 0.18 10*3/uL Normal <0.46 [facility] Comment on above: Order Comment: Speci men Type: BLOOD SPECIMENOrdering Facility: [facility] Address: [address] [place] [address] Performed By: #### 5 7021-8 ####[facility] HOSPITALLIA [id number] [place] [address] [place] Eosinophils/100 WBC (Bld) 2.6 % Normal [facility] Comment on above: Order Comment: Speci men Type: BLOOD SPECIMENOrdering Facility: [facility] Address: [address] [place] [address] Performed By: #### 5 7021-8 ####[facility] HOSPITALNCLIA [id number] [place] [address] [place] Erythrocyte distribution width (RBC) [Ratio] 16.5 % High 11.5-15.0 [facility] Comment on above: Order Comment: Speci men Type: BLOOD SPECIMENOrdering Facility: [facility] Address: [address] [place] [address] Performed By: #### 5 7021-8 ####[facility] HOSPITALNCTIFFANIA [id number] [place] [address] [place] Hematocrit (Bld) [Volume fraction] 36.2 % Normal 36.0-46.0 [facility] Comment on above: Order Comment: Speci men Type: BLOOD SPECIMENOrdering Facility: [facility] Address: [address] [place] [address] Performed By: #### 5 7021-8 ####[facility]OSPITALNCSEVIER [facility] [id number] [place] [address] [place] Hemoglobin (Bld) [Mass/Vol] 11.1 g/dL Low 11.5-15.5 [facility] Comment on above: Order Comment: Speci men Type: BLOOD SPECIMENOrdering Facility: [facility] Address: [address] [place] [address] Performed By: #### 5 7021-8 ####[facility] HOSPITALNCLIA [id number] [place] [address] [place] Immature granulocytes (Bld) [#/Vol] 0.03 10*3/uL Normal <0.10 [facility] Comment on above: Order Comment: Speci men Type: BLOOD SPECIMENOrdering Facility: [facility] Address: [address] [place] [address] Performed By: #### 5 7021-8 ####[facility] HOSPITALNCLIA [id number] [place] [address] [place] Immature granulocytes/100 WBC (Bld) 0.4 % Normal [facility] Comment on above: Order Comment: Speci men Type: BLOOD SPECIMENOrdering Facility: [facility] Address: [address] [place] [address] Performed By: #### 5 7021-8 ####[facility] ALYSSAJamirNCBLAKE [id number] [place] [address] [place] Lymphocytes (Bld) [#/Vol] 1.27 10*3/uL Normal 1.00-4.00 [facility] Comment on above: Order Comment: Speci men Type: BLOOD SPECIMENOrdering Facility: [facility] Address: [address] [place] [address] Performed By: #### 5 7021-8 ####[facility]OSPITALNCSEVIER VAL[facility] [id number] [place] [address] [place] Lymphocytes/100 WBC (Bld) 18.4 % Normal [facility] Comment on above: Order Comment: Speci men Type: BLOOD SPECIMENOrdering Facility: [facility] Address: [address] [place] [address] Performed By: #### 5 7021-8 ####[facility] HOSPITALNCLI [id number] [place] [address] [place] MCH (RBC) [Entitic mass] 25.6 pg Low 26.0-34.0 [facility] Comment on above: Order Comment: Speci men Type: BLOOD SPECIMENOrdering Facility: [facility] Address: [address] [place] [address] Performed By: #### 5 7021-8 ####[facility] HOSPITALNCLIA [id number] [place] [address] [place] MCHC (RBC) [Mass/Vol] 30.7 g/dL Normal 30.5-36.0 [facility] Comment on above: Order Comment: Speci men Type: BLOOD SPECIMENOrdering Facility: [facility] Address: [address] [place] [address] Performed By: #### 5 7021-8 ####[facility] ALYSSAWNCLIA [id number] [place] [address] [place] MCV (RBC) [Entitic vol] 83.6 fL Normal 80.0-100.0 C [facility] Comment on above: Order Comment: Speci men Type: BLOOD SPECIMENOrdering Facility: [facility] Address: [address] [place] [address] Performed By: #### 5 7021-8 ####[facility] HOSPITALLIA [id number] [place] [address] [place] Monocytes (Bld) [#/Vol] 0.50 10*3/uL Normal <0.87 [facility] Comment on above: Order Comment: Speci men Type: BLOOD SPECIMENOrdering Facility: [facility] Address: [address] [place] [address] Performed By: #### 5 7021-8 ####[facility] HOSPITALA [id number] [place] [address] [place] Monocytes/100 WBC (Bld) 7.2 % Normal C [facility] Comment on above: Order Comment: Speci men Type: BLOOD SPECIMENOrdering Facility: [facility] Address: [address] [place] [address] Performed By: #### 5 7021-8 ####[facility] HOSPITALLIA [id number] [place] [address] [place] Neutrophils (Bld) [#/Vol] 4.84 10*3/uL Normal 1.45-7.50 [facility] Comment on above: Order Comment: Speci men Type: BLOOD SPECIMENOrdering Facility: [facility] Address: [address] [place] [address] Performed By: #### 5 7021-8 ####[facility] HOSPITALNCLIA [id number] [place] [address] [place] Neutrophils/100 WBC (Bld) 70.2 % Normal [facility] Comment on above: Order Comment: Speci men Type: BLOOD SPECIMENOrdering Facility: [facility] Address: [address] [place] [address] Performed By: #### 5 7021-8 ####[facility]PITALNCSEVI[facility] [id number] [place] [address] [place] Nucleated RBC (Bld) [#/Vol] 10*3/uL Normal <0.01 [facility] Comment on above: Order Comment: Speci men Type: BLOOD SPECIMENOrdering Facility: [facility] Address: [address] [place] [address] Performed By: #### 5 7021-8 ####[facility]ITALNCSEVI[facility] [id number] [place] [address] [place] Nucleated RBC/100 WBC (Bld) [Ratio] 0.0 /100 WBC Normal [facility] Comment on above: Order Comment: Speci men Type: BLOOD SPECIMENOrdering Facility: [facility] Address: [address] [place] [address] Performed By: #### 5 7021-8 ####[facility] HOSPITALNCLIA [id number] [place] [address] [place] Platelet mean volume (Bld) [Entitic vol] 10.6 fL Normal 9.0-12.7 [facility] Comment on above: Order Comment: Speci men Type: BLOOD SPECIMENOrdering Facility: [facility] Address: [address] [place] [address] Performed By: #### 5 7021-8 ####[facility] HOSPITALNCLIA [id number] [place] [address] [place] Platelets (Bld) [#/Vol] 240 10*3/uL Normal 150-400 [facility] Comment on above: Order Comment: Speci men Type: BLOOD SPECIMENOrdering Facility: [facility] Address: [address] [place] [address] Performed By: #### 5 7021-8 ####[facility] RIGOBERTOWHITE RIVER JUNCTION VA MEDICAL CENTERWNCLIA [id number] [place] [address] [place] RBC (Bld) [#/Vol] 4.33 10*6/uL Normal 3.90-5.20 [facility] Comment on above: Order Comment: Speci men Type: BLOOD SPECIMENOrdering Facility: [facility] Address: [address] [place] [address] Performed By: #### 5 7021-8 ####[facility] HOSPITALNCLIA [id number] [place] [address] [place] WBC (Bld) [#/Vol] 6.90 10*3/uL Normal 3.70-11.00 [facility] Comment on above: Order Comment: Speci men Type: BLOOD SPECIMENOrdering Facility: [facility] Address: [address] [place] [address] Performed By: #### 5 7021-8 ####[facility] HOSPITALNCLIA [id number] [place] [address] [place] Comprehensive metabolic 2000 panelOrdered By: Cyndie Zhou on 10-05-2024 Albumin [Mass/Vol] 3.7 g/dL Low 3.9 - 4.9 g/dL [facility] ALP [Catalytic activity/Vol] 83 U/L 34 - 123 U/L [facility] ALT [Catalytic activity/Vol] 8 U/L 7 - 38 U/L [facility] Anion gap [Moles/Vol] 9 mmol/L 8 - 15 mmol/L [facility] AST [Catalytic activity/Vol] 16 U/L 13 - 35 U/L [facility] Bilirubin [Mass/Vol] 0.2 mg/dL 0.2 - 1 .3 mg/dL [facility] Calcium [Mass/Vol] 9.1 mg/dL 8.5 - 10. 2 mg/dL [facility] Chloride [Moles/Vol] 100 mmol/L 98 - 10 7 mmol/L [facility] CO2 [Moles/Vol] 25 mmol/L 22 - 30 mmol/L [facility] Creatinine [Mass/Vol] 0.67 mg/dL 0.58 - 0.96 mg/dL [facility] GFR/1.73 sq M.predicted among non-blacks MDRD (S/P/Bld) [Vol rate/Area] 97 mL/min/{1.73_m2} - PINF [facility] Comment on above: Estimated Glomerular Filtration Rate [...] 105 mg/dL High 74 - 99 mg/dL [facility] Comment on above: The [place] Diabete [employer] Association (ADA) provides guidance for [...] Standards of Medical Care in Diabetes 2016, [place] [employer]. Diabetes Care. 2016.39(Suppl 1). Interpretation and review of laboratory results Abnormal [facility] Potassium [Moles/Vol] 4.1 mmol/L 3.7 - 5.1 mmol/L [facility] Protein [Mass/Vol] 6.7 g/dL 6.3 - 8.0 g/dL [facility] Sodium [Moles/Vol] 134 mmol/L Low 136 - 144 mmol/L [facility] Urea nitrogen [Mass/Vol] 11 mg/dL 7 - 21 mg/dL [facility] Comprehensive metabolic 2000 panelon 10-05-2024 Albumin [Mass/Vol] 3.7 g/dL Low 3.9-4.9 [facility] Comment on above: Order Comment: Speci men Type: BLOOD SPECIMENOrdering Facility: [facility] Address: [address] [place] [address] Performed By: #### 2 4323-8 ####[facility] MILLWNCLIA [id number] [place] [address] [place] ALP [Catalytic activity/Vol] 83 U/L Normal 34-123 [facility] Comment on above: Order Comment: Speci men Type: BLOOD SPECIMENOrdering Facility: [facility] Address: [address] [place] [address] Performed By: #### 2 4323-8 ####[facility] HOSPITALLIA [id number] [place] [address] [place] ALT [Catalytic activity/Vol] 8 U/L Normal 7-38 [facility] Comment on above: Order Comment: Speci men Type: BLOOD SPECIMENOrdering Facility: [facility] Address: [address] [place] [address] Performed By: #### 2 4323-8 ####[facility] HOSPITALLIA [id number] [place] [address] [place] Anion gap [Moles/Vol] 9 mmol/L Normal 8-15 [facility] Comment on above: Order Comment: Speci men Type: BLOOD SPECIMENOrdering Facility: [facility] Address: [address] [place] [address] Performed By: #### 2 4323-8 ####[facility] HOSPITALLIA [id number] [place] [address] [place] AST [Catalytic activity/Vol] 16 U/L Normal 13-35 [facility] Comment on above: Order Comment: Speci men Type: BLOOD SPECIMENOrdering Facility: [facility] Address: [address] [place] [address] Performed By: #### 2 4323-8 ####[facility] MILLTOWNCLIA [id number] [place] [address] [place] Bilirubin [Mass/Vol] 0.2 mg/dL Normal 0.2-1.3 [facility] Comment on above: Order Comment: Speci men Type: BLOOD SPECIMENOrdering Facility: [facility] Address: [address] [place] [address] Performed By: #### 2 4323-8 ####[facility] MILLTOWNCLIA [id number] [place] [address] [place] Calcium [Mass/Vol] 9.1 mg/dL Normal 8.5-10.2 [facility] Comment on above: Order Comment: Speci men Type: BLOOD SPECIMENOrdering Facility: [facility] Address: [address] [place] [address] Performed By: #### 2 4323-8 ####[facility] CHILDRENWNCLIA [id number] [place] [address] [place] Chloride [Moles/Vol] 100 mmol/L Normal 98-107 [facility] Comment on above: Order Comment: Speci men Type: BLOOD SPECIMENOrdering Facility: [facility] Address: [address] [place] [address] Performed By: #### 2 4323-8 ####[facility] MILLTOWNCLIA [id number] [place] [address] [place] CO2 [Moles/Vol] 25 mmol/L Normal 22-30 [facility] Comment on above: Order Comment: Speci men Type: BLOOD SPECIMENOrdering Facility: [facility] Address: [address] [place] [address] Performed By: #### 2 4323-8 ####[facility] MILLTOWNCLIA [id number] [place] [address] [place] Creatinine [Mass/Vol] 0.67 mg/dL Normal 0.58-0.96 [facility] Comment on above: Order Comment: Mindy mcfarlane Type: BLOOD SPECIMENOrdering Facility: [facility] Address: [address] [place] [address] Performed By: #### 2 4323-8 ####[facility] DORAL [id number] [place] [address] [place] [facility] Creatinine and Glomerular filtration rate.predicted panel (S/P/Bld) 97 mL/min/1.73m??? Normal >=60 [facility] Comment on above: Order Comment: Mindy mcfarlane Type: BLOOD SPECIMENOrdering Facility: [facility] Address: [address] [place] [address] Result Comment: Sonia mated Glomerular Filtration Rate [...] actual GFR. Performed By: #### 2 4323-8 ####[facility] D[facility] [id number] [place] [address] [place] Glucose [Mass/Vol] 105 mg/dL High 74-99 [facility] Comment on above: Order Comment: Mindy mcfarlane Type: BLOOD SPECIMENOrdering Facility: [facility] Address: [address] [place] [address] Result Comment: The [place] Diabetes Association (ADA) provides guidance for cutoff [...] Standards of Medical Care in Diabetes 2016, [place] [employer]. Diabetes Care. 2016.39(Suppl 1). Performed By: #### 2 4323-8 ####[facility] DORAL [id number] [place] [address] [place] Potassium [Moles/Vol] 4.1 mmol/L Normal 3.7-5.1 [facility] Comment on above: Order Comment: Speci men Type: BLOOD SPECIMENOrdering Facility: [facility] Address: [address] [place] [address] Performed By: #### 2 4323-8 ####[facility] [id number] [place] [address] [place] Protein [Mass/Vol] 6.7 g/dL Normal 6.3-8.0 [facility] Comment on above: Order Comment: Speci men Type: BLOOD SPECIMENOrdering Facility: [facility] Address: [address] [place] [address] Performed By: #### 2 4323-8 ####[facility] [id number] [place] [address] [place] Sodium [Moles/Vol] 134 mmol/L Low 136-144 [facility] Comment on above: Order Comment: Speci men Type: BLOOD SPECIMENOrdering Facility: [facility] Address: [address] [place] [address] Performed By: #### 2 4323-8 ####[facility] [id number] [place] [address] [place] Urea nitrogen [Mass/Vol] 11 mg/dL Normal 7-21 [facility] Comment on above: Order Comment: Speci men Type: BLOOD SPECIMENOrdering Facility: [facility] Address: [address] [place] [address] Performed By: #### 2 4323-8 ####[facility] D[facility] [id number] [place] [address] [place] CNOVon 09-30-2024 CNOV Normal [facility] Culture, Blood (WB)on 2024 CUB Blood cultures x2, f rom two different sites No growth in 5 days. Normal [facility] Comment on above: Performed By: #### L 500.4050, L100.0100, M200.1000, L503.6005 ####[facility] [id number] [place], [place], [id number] HIGH RISK HUMAN PAPILLOMA ART (HPV), PCR FOR DETECTION AND GENOTYPINGon 09-30-2024 HPV 16 Ag Ql (Unsp spec) Not detected Normal Not detected [facility] Comment on above: Order Comment: Speci men Type: FLUID SPECIMENOrdering Facility: [facility] Address: [address] [place] [address] Performed By: #### H PVHRT ####[facility] [id number] [place] [address] [place] HPV 18 Ag Ql (Unsp spec) Not detected Normal Not detected [facility] Comment on above: Order Comment: Speci men Type: FLUID SPECIMENOrdering Facility: [facility] Address: [address] [place] [address] Performed By: #### H PVHRT ####[facility] [id number] [place] [address] [place] HPV 31+33+35+39+45+51+52+56 +58+59+66+68 DNA CORAL+probe Ql (Cvx) Not detected Normal Not detected [facility] Comment on above: Order Comment: Speci men Type: FLUID SPECIMENOrdering Facility: [facility] Address: [address] [place] [address] Result Comment: High Risk HPV Other Type includes HPV types 31, 33, 35, 39, 45, 51, 52, 56, 58, 59, 66 and 68. Performed By: #### H PVHRT ####[facility] LABCLIA [id number] [address] [address] [place] MARIA TERESA SCREENING W TOMOon 09-30 MARIA TERESA SCREENING W CAMERON Normal [facility] PAP TESTon 09-30-2024 ADEQUACY Satisfactory for interpretation. Normal [facility] Comment on above: Order Comment: Speci men Type: FLUID SPECIMENOrdering Facility: [facility] Address: [address] [place] [address] Performed By: #### L [id number] ####[facility]ORY[facility] [id number] [address] LABCLIA [id number] [place] [address] [place] CASE REPORT Normal [facility] [facility] Comment on above: Order Comment: Speci men Type: FLUID SPECIMENOrdering Facility: [facility] Address: [address] [place] [address] Result Comment: Gyne cologic Cytology Report Case: [id number] Provider: Juan José Cheema MD Collected: 09/30/2024 10:46 AMOrdering Location: OB/Gynecology Received: 09/30/2024 02:02 PMFirst Screen: Gmitro, Willie, CT, ASCPSpecimen: Pap Test, ThinPrep, Cervix Performed By: #### L [id number] ####[facility] LABORATORYCLIA [id number] [address] LABCLIA [id number] [place] [address] [place] CLINICAL HISTORY, CYTOLOGY, CHARGING CRANE OPERATOR Routine Exam Normal [facility] Comment on above: Order Comment: Speci men Type: FLUID SPECIMENOrdering Facility: [facility] Address: [address] [place] [address] Performed By: #### L [id number] ####[facility] LABORATORYCLIA [id number] [place] [address] [facility] LABCLIA [id number] [place] [id number] [place] [facility] CYTOLOGY PAP OTHER INTERPRETATION Atrophic specimen. Normal [facility] Comment on above: Order Comment: Speci men Type: FLUID SPECIMENOrdering Facility: [facility] Address: [address] [place] [address] Performed By: #### L [id number] ####[facility] LABORATORYCLIA [id number] [place] [id number] [facility] LABCLIA [id number] [address] FINAL PERFORMING LAB Normal [facility] Comment on above: Order Comment: Speci men Type: FLUID SPECIMENOrdering Facility: [facility] Address: [address] [place] [address] Result Comment: Tech nical component, vba programmer screening performed at [facility], [address] [place] [address] CLIA# [id number] interpretation performed at [facility], [address] [place] [address] CLIA# [id number] Director: Joan Riley M.D. Performed By: #### L [id number] ####[facility] LABORATORYCLIA [id number] [place] [id number] [facility] LABCLIA [id number] [address] [address] [facility] INTERPRETATION, CYTOLOGY, CHARGING CRANE OPERATOR Normal [facility] Comment on above: Order Comment: Speci men Type: FLUID SPECIMENOrdering Facility: [facility] Address: [address] [place] [address] Result Comment: Nega tive for intraepithelial lesion or malignancy. at 1545 EDT Performed By: #### L [id number] ####[facility] LABORATORYCLIA [id number] [place] [address] [facility] LABCLIA [id number] [address] [place] [address] [place] LMP 01/22/2010 Normal [facility] Comment on above: Order Comment: Speci men Type: FLUID SPECIMENOrdering Facility: [facility] Address: [address] [place] [address] Performed By: #### L [id number] ####[facility] LABORATORYCLIA [id number] [place] [address] [facility] LABCLIA [id number] [address] [place] [address] [place] PAP DISCLAIMER COMMENT The Pap Smear is a screening test for cervical cancer. False negative results occur with all screening tests, emphasizing the need for rescreening at recommended intervals, and clinical correlation. Normal [facility] Comment on above: Order Comment: Speci men Type: FLUID SPECIMENOrdering Facility: [facility] Address: [address] [place] [address] Performed By: #### L [id number] ####[facility] LABORATORYCLIA [id number] [place] [id number] [facility] LABCLIA [id number] [address] [place] [address] [place] PAP SQL CONSULTANT COMMENT Normal [facility] Comment on above: Order Comment: Speci men Type: FLUID SPECIMENOrdering Facility: [facility] Address: [address] [place], [place] [address] Performed By: #### L [id number] ####[facility] LABORATORYCLIA [id number] [place] [address] [facility] LABCLIA [id number] [facility] [address] [place] [address] [place] CNADon 09-29-2024 MARIMAR ROSADO ([id number]) 1960 F Date Time Provider Department 09/29/24 RAUL HENDRIX Normal [facility] CNPNon 09-28-2024 CNPN Telephone (MARINAHEUHWN ) -------- MARIMAR WANG ([id number]) 1960 F Date Time Provider Department 09/28/24 [...] time Date Reviewed: 09/24/2024 Reviewed by: Fiona Rtuherford MA - Fully Assessed Reason for Visit: [...] 80 mg by mouth once daily. - iyjnvq-bqnmktgo-wqqshet (CREON 36) 36,000-114,000- 180,000 unit delayed release [...] Comments as of 02/06/2017: Xeldebby use pharmacy [facility] Specialty pharmacy [place] [phone] Problem List As Of Date 09/28/2024 Noted [...] PVC's (premature (more content not included)... Normal [facility] Absolute lymphocyte countOrd ered By: Pawel Cason on 09-24-2024 Lymphocytes Auto (Unsp spec) [#/Vol] 1.59 10*3/uL 0.83-4.51 [facility] Absolute neutrophil countOrd ered By: Pawel Cason on 09-24-2024 Neutrophils (Bld) [#/Vol] 7.0 10*3/uL 2.0-7.7 [facility] Automated lymphocyte count a s percentage of total leukocytesOrdered By: Pawel Cason on 09-24-2024 Lymphocytes/100 WBC Auto (Unsp spec) 15.7 % Low 19-41 [facility] BUN/creatinine ratioOrdered By: Pawel Cason on 09-24-2024 Urea nitrogen/Creatinine [Mass ratio] 15.0 mg/mg 10-20 [facility] Basophil percentageOrdered B y: Pawel Cason on 09-24-2024 Basophils/100 WBC (Bld) 1.1 % High 0-1 [facility] Bilirubin, totalOrdered By: Pawelladonna Cason on 09-24-2024 Bilirubin [Mass/Vol] 0.18 mg/dL 0.00-1.30 [facility] Blood cultureOrdered By: [facility] on 09-24-2024 Bacteria identified Cx Nom (Bld) No growth in 5 days. [facility] Bacteria identified Cx Nom (Bld) No growth in 5 days. [facility] CBC W/Diff, Automatedon 08-30 Absolute Lymph 1.59 X10 3/uL Normal 0.83-4.51 [facility] Comment on above: Performed By: #### L 500.4050, L100.0100, M200.1000, L503.6005 #### [facility] Laboratory [address] [place], [address] Absolute Neut 7.0 X10 3/uL Normal 2.0-7.7 [facility] Comment on above: Performed By: #### L 500.4050, L100.0100, M200.1000, L503.6005 #### [facility] Laboratory [address] [place], [address] Basophils/100 WBC (Bld) 1.1 % High 0-1 [facility] Comment on above: Performed By: #### L 500.4050, L100.0100, M200.1000, L503.6005 #### [facility] [address] [place], [address] Eosinophils/100 WBC (Bld) 1.9 % Normal 0-5 [facility] Comment on above: Performed By: #### L 500.4050, L100.0100, M200.1000, L503.6005 #### [facility] [address] [place], [address] Erythrocyte distribution width (RBC) [Ratio] 16.3 % High 11.6-14.6 [facility] Comment on above: Performed By: #### L 500.4050, L100.0100, M200.1000, L503.6005 #### [facility] [address] [place], [address] Hematocrit (Bld) [Volume fraction] 34.4 % Low 37-47 [facility] Comment on above: Performed By: #### L 500.4050, L100.0100, M200.1000, L503.6005 #### [facility] [address] [place], [address] Hemoglobin (Bld) [Mass/Vol] 10.7 g/dL Low 12.0-15.0 [facility] Comment on above: Performed By: #### L 500.4050, L100.0100, M200.1000, L503.6005 #### [facility] [address] [place], [address] IG% 1.000 High 0.0-0.9 [facility] Comment on above: Result Comment: IG% - Immature Granulocytes (promyelocytes, myelocytes and metamyelocytes) > 1% indicates that a LEFT SHIFT is Present. Performed By: #### L 500.4050, L100.0100, M200.1000, L503.6005 #### [facility] [address] [place], [address] Lymphocytes/100 WBC (Bld) 15.7 % Low 19-41 [facility] Comment on above: Performed By: #### L 500.4050, L100.0100, M200.1000, L503.6005 #### [facility] [address] [place], [address] MCH (RBC) [Entitic mass] 25.8 pg Low 27.0-32.0 [facility] Comment on above: Performed By: #### L 500.4050, L100.0100, M200.1000, L503.6005 #### [facility] [address] [place], [address] MCHC (RBC) [Mass/Vol] 31.1 g/dL Low 32-36 [facility] Comment on above: Performed By: #### L 500.4050, L100.0100, M200.1000, L503.6005 #### [facility] [address] [place], [address] MCV (RBC) [Entitic vol] 83.1 fL Normal 81-99 [facility] Comment on above: Performed By: #### L 500.4050, L100.0100, M200.1000, L503.6005 #### [facility] [address] [place], [address] Monocytes/100 WBC (Bld) 11.2 % High 0-10 [facility] Comment on above: Performed By: #### L 500.4050, L100.0100, M200.1000, L503.6005 #### [facility] [address] [place], [address] Neutrophils/100 WBC (Bld) 69.1 % Normal 47-70 [facility] Comment on above: Performed By: #### L 500.4050, L100.0100, M200.1000, L503.6005 #### [facility] [address] [place], [address] Nucleated RBC (Bld) [#/Vol] 0 10*3/uL Normal 0-5 [facility] Comment on above: Performed By: #### L 500.4050, L100.0100, M200.1000, L503.6005 #### [facility] [address] [place], [address] Platelet mean volume (Bld) [Entitic vol] 11.3 fL Normal 6.2-12.0 [facility] Comment on above: Performed By: #### L 500.4050, L100.0100, M200.1000, L503.6005 #### [facility] [address] [place], [address] Platelets (Bld) [#/Vol] 258 10*3/uL Normal 150-450 [facility] Comment on above: Performed By: #### L 500.4050, L100.0100, M200.1000, L503.6005 #### [facility] [address] [place], [address] RBC (Bld) [#/Vol] 4.14 10*6/uL Low 4.2-5.4 [facility] Comment on above: Performed By: #### L 500.4050, L100.0100, M200.1000, L503.6005 #### [facility] [address] [place], [address] RDW SD 49.1 fl High 35.1-43.9 [facility] Comment on above: Performed By: #### L 500.4050, L100.0100, M200.1000, L503.6005 #### [facility] [address] [place], [address] WBC (Bld) [#/Vol] 10.1 10*3/uL Normal 4.4-11.0 [facility] Comment on above: Performed By: #### L 500.4050, L100.0100, M200.1000, L503.6005 #### [facility] [address] [place], [address] CNOVon 09-24-2024 CNOV Normal [facility] CNPNon 09-24-2024 CNPN Normal [facility] Carbon dioxide measurementOr dered By: Pawel Cason on 09-24-2024 CO2 [Moles/Vol] 23.1 mmol/L 22.0-29.0 [facility] Chloride measurementOrdered By: Pawel Cason on 09-24-2024 Chloride [Moles/Vol] 99 mmol/L 96-108 [facility] Comprehensive Metabolic Prof ilon 09-24-2024 Albumin [Mass/Vol] 3.5 g/dL Normal 3.4-4.8 [facility] Comment on above: Performed By: #### L 500.4050, L100.0100, M200.1000, L503.6005 #### [facility] [address] [place], [address] Albumin/Globulin [Mass ratio] 1.0 {ratio} Normal 0.9-2.4 [facility] Comment on above: Performed By: #### L 500.4050, L100.0100, M200.1000, L503.6005 #### [facility] [address] [place], [address] ALK PHOS 97 U/L Normal 35-104 [facility] Comment on above: Performed By: #### L 500.4050, L100.0100, M200.1000, L503.6005 #### [facility] [address] [place], [address] ALT [Catalytic activity/Vol] 10 U/L Normal <=34 [facility] Comment on above: Performed By: #### L 500.4050, L100.0100, M200.1000, L503.6005 #### [facility] [address] [place], [address] Anion gap [Moles/Vol] 11 mmol/L Normal 5-15 [facility] Comment on above: Performed By: #### L 500.4050, L100.0100, M200.1000, L503.6005 #### [facility] [address] [place], [address] AST [Catalytic activity/Vol] 20 U/L Normal <=31 [facility] Comment on above: Performed By: #### L 500.4050, L100.0100, M200.1000, L503.6005 #### [facility] [address] [place], [address] Bilirubin [Mass/Vol] 0.18 mg/dL Normal 0.00-1.30 [facility] Comment on above: Performed By: #### L 500.4050, L100.0100, M200.1000, L503.6005 #### [facility] [address] [place], [address] BUN/CRE 15.0 RATIO Normal 10-20 [facility] Comment on above: Performed By: #### L 500.4050, L100.0100, M200.1000, L503.6005 #### [facility] [address] [place], [address] Calcium [Mass/Vol] 8.7 mg/dL Normal 7.6-11.0 [facility] Comment on above: Performed By: #### L 500.4050, L100.0100, M200.1000, L503.6005 #### [facility] [address] [place], [address] Chloride [Moles/Vol] 99 mmol/L Normal 96-108 [facility] Comment on above: Performed By: #### L 500.4050, L100.0100, M200.1000, L503.6005 #### [facility] [address] [place], [address] CO2 [Moles/Vol] 23.1 mmol/L Normal 22.0-29.0 [facility] Comment on above: Performed By: #### L 500.4050, L100.0100, M200.1000, L503.6005 #### [facility] [address] [place], [address] Creatinine [Mass/Vol] 0.69 mg/dL Low 0.70-1.20 [facility] Comment on above: Performed By: #### L 500.4050, L100.0100, M200.1000, L503.6005 #### [facility] [address] [place], [address] ECRCL 72.55 ml/min Normal [facility] Comment on above: Performed By: #### L 500.4050, L100.0100, M200.1000, L503.6005 #### [facility] [address] [place], [address] GFR/1.73 sq M.predicted among non-blacks MDRD (S/P/Bld) [Vol rate/Area] 96 mL/min/{1.73_m2} Normal >60 [facility] Comment on above: Result Comment: mL/m in/1.73m2 CKD-EPI Creatinine Equation (2020) Performed By: #### L 500.4050, L100.0100, M200.1000, L503.6005 #### [facility] [address] [place], [address] Globulin (S) [Mass/Vol] 3.3 g/dL Normal 2.2-4.2 [facility] Comment on above: Performed By: #### L 500.4050, L100.0100, M200.1000, L503.6005 #### [facility] [address] [place], [address] Glucose [Mass/Vol] 78 mg/dL Normal 70-99 [facility] Comment on above: Performed By: #### L 500.4050, L100.0100, M200.1000, L503.6005 #### [facility] [address] [place], [address] Potassium [Moles/Vol] 3.9 mmol/L Normal 3.3-5.1 [facility] Comment on above: Performed By: #### L 500.4050, L100.0100, M200.1000, L503.6005 #### [facility] [address] [place], [address] Sodium [Moles/Vol] 133 mmol/L Normal 133-145 [facility] Comment on above: Performed By: #### L 500.4050, L100.0100, M200.1000, L503.6005 #### [facility] [address] [place], [address] T PROT 6.8 g/dL Normal 5.9-8.4 [facility] Comment on above: Performed By: #### L 500.4050, L100.0100, M200.1000, L503.6005 #### [facility] [address] [place], [address] Urea nitrogen [Mass/Vol] 10 mg/dL Normal 4-19 [facility] Comment on above: Performed By: #### L 500.4050, L100.0100, M200.1000, L503.6005 #### [facility] [address] [place], [address] Emergency Department Summary on 09-24-2024 Emergency Department Summary [facility] Department [address] [place] [address] Emergency Department Summary 09/24/24 MR#: [id number] Acct: [id number] Name: MARIMAR WANG Rep #: [id number] : 1960 64 From: Pawel Cason MD [...] similar symptoms: Yes Recent Illness/Hospitalization: Yes [facility] Medical History Squamous cell [...] QHS MENTAL HEALTH 6 09/01/24 History peg 682-scvrczbihohe-gjnrobl n 1 1 drp OP 4X/DAY DRY [...] Constipation Unknown History gram/dose oral powder (Miralax) aksvhq-ofopxaip-rjbtokn See Rx Instructions PO .COMPLEX 09/01/24 Rx 36,000-114,000-180,000 unit #300 caps capsule,delay rel (Creon) acetaminophen 500 mg tablet 1,000 mg PO Q6H PRN fever or pain 11/15/23 09/01/24 History atorvastatin 80 mg tablet 80 mg PO QHS 11/15/23 09/01/24 His tory hydrocortisone 2. (more content not included)... Normal [facility] Eosinophil percentageOrdered By: Pawel Cason on 09-24-2024 Eosinophils/100 WBC (Bld) 1.9 % 0-5 [facility] Erythrocyte distribution wid th ratioOrdered By: Pawel Cason on 09-24-2024 Erythrocyte distribution width (RBC) [Ratio] 16.3 % High 11.6-14.6 [facility] Erythrocyte distribution wid th standard deviationOrdered By: Pawel Cason on 09-24-2024 Erythrocyte distribution width (RBC) [Entitic vol] 49.1 fL High 35.1-43.9 [facility] Erythrocyte distribution width (RBC) [Ratio] 49.1 fl High 35.1-43.9 [facility] Estimation of creatinine olga aranceOrdered By: Pawel Cason on 09-24-2024 Estimated Creatinine Clearance Calc 72.55 ml/min [facility] GFR/1.73 sq M.predicted brunilda g non-blacks MDRD (S/P/Bld) [Vol rate/Area]Ordered By: Pawel Cason on 09-24-2024 Estimated GFR (MDRD) Non-Af Amer 96 >60 [facility] Comment on above: mL/min/1.73m2 CKD-EP I Creatinine Equation (2020) Glomerular filtration rate ( GFR) estimation/1.73 sq m using serum, plasma, or whole bOrdered By: Pawel Cason on 09-24-2024 GFR/1.73 sq M.predicted among non-blacks MDRD (S/P/Bld) [Vol rate/Area] 96 mL/min/{1.73_m2} >60 [facility] Comment on above: mL/min/1.73m2 CKD-EP I Creatinine Equation (2020) Hematocrit Auto (Bld) [Volum e fraction]Ordered By: Pawel Cason on 09-24-2024 Hematocrit (Bld) [Volume fraction] 34.4 % Low 37-47 [facility] Hemoglobin measurementOrdere d By: Pawel Cason on 09-24-2024 Hemoglobin (Bld) [Mass/Vol] 10.7 g/dL Low 12.0-15.0 [facility] Immature granulocytes/100 WB C Auto (Bld)Ordered By: Pawelladonna Cason on 09-24-2024 Immature granulocytes/100 WBC (Bld) 1.000 % High 0.0-0.9 [facility] Comment on above: IG% - Immature Granu locytes (promyelocytes, myelocytes and metamyelocytes) > 1% indicates that a LEFT SHIFT is Present. Laboratory - Chemistry and C hemistry - challengeOrdered By: Pawelladonna Cason on 09-24-2024 AST [Catalytic activity/Vol] 20 U/L <32 [facility] Lactic acid measurementOrder ed By: Pawel Cason on 09-24-2024 Lactate [Moles/Vol] mmol/L Normal 0.0-2.0 [facility] Comment on above: Order Comment: Y Performed By: #### L 500.4050, L100.0100, M200.1000, L503.6005 #### [facility] [address] [place], [address] Lymphocytes Auto (Unsp spec) [#/Vol]Ordered By: [facility] on 09-24-2024 Lymphocytes (Bld) [#/Vol] 1.59 10*3/uL 0.83-4.51 [facility] Lymphocytes/100 WBC Auto (Un sp spec)Ordered By: Pawelladonna Cason on 09-24-2024 Lymphocytes/100 WBC (Bld) 15.7 % Low 19-41 [facility] MCV (mean corpuscular volume ) determinationOrdered By: Pawelladonna Cason on 09-24-2024 MCV (RBC) [Entitic vol] 83.1 fL 81-99 [facility] Mean corpuscular hemoglobin (MCH) determinationOrdered By: Pawel Cason on 09-24-2024 MCH (RBC) [Entitic mass] 25.8 pg Low 27.0-32.0 [facility] Mean corpuscular hemoglobin concentration (MCHC) determinationOrdered By: Pawel Cason on 09-24-2024 MCHC (RBC) [Mass/Vol] 31.1 g/dL Low 32-36 [facility] Mean platelet volume determi nationOrdered By: Pawelladonna Cason on 09-24-2024 Platelet mean volume (Bld) [Entitic vol] 11.3 fL 6.2-12.0 [facility] Monocyte percentageOrdered B y: Pawel Cason on 09-24-2024 Monocytes/100 WBC (Bld) 11.2 % High 0-10 [facility] Neutrophil percentageOrdered By: Pawelladonna Greeno on 09-24-2024 Neutrophils/100 WBC (Bld) 69.1 % 47-70 [facility] Nucleated red blood cell per centageOrdered By: Pawelladonna Cason on 09-24-2024 Nucleated RBC/100 WBC (Bld) [Ratio] 0 % 0-5 [facility] Pelvis WITH IV Contraston Pelvis WITH IV Contrast [facility] Services [address] [place], [place] [address] Pelvis WITH IV Contrast MR#: [id number] Acct: [id number] Name: MARIMAR WANG Rep #: [id number] : 1960 F 64 From: Jaiden Mariee MD PCP: Julio Arriaga, REGINA-C Status: REG ER Study: Pelvis WITH IV Contrast Date of Exam: 09/24/24 Exam# [id number] Ordering Dr: Pawel Cason MD PROCEDURE: PELVIS WITH IV CONTRAST REASON FOR EXAM: Perirectal pain, fullness, concern for recurrent abscess COMPARISON: September 02, 2024 TECHNIQUE: CT of the pelvis with contrast with coronal and sagittal reformatted images CONTRAST: 96 cc Isovue 370 FINDINGS: Dow artifact from left hip replacement. Right posterior [...] use of iterative reconstruction technique). Reading Location: [facility] CC: SINAI Arriaga; Dr. Pawel Cason MD Pre Owned Sales Manager: Signed Normal [facility] Platelet countOrdered By: Akiko Cason on 09-24-2024 Platelets (Bld) [#/Vol] 258 10*3/uL 150-450 [facility] RBC Auto (Bld) [#/Vol]Ordere d By: Pawel Cason on 09-24-2024 RBC (Bld) [#/Vol] 4.14 10*6/uL Low 4.2-5.4 [facility] Serum creatinine measurement (mass/volume)Ordered By: Pawel Cason on 09-24-2024 Creatinine [Mass/Vol] 0.69 mg/dL Low 0.70-1.20 [facility] Serum globulin measurementOr dered By: Pawel Cason on 09-24-2024 Globulin (S) [Mass/Vol] 3.3 g/dL 2.2-4.2 [facility] Serum glucose measurement (m ass/volume)Ordered By: Pawel Cason on 09-24-2024 Glucose [Mass/Vol] 78 mg/dL 70-99 [facility] Serum or plasma alanine alarcon otransferase (ALT) measurementOrdered By: Pawel Cason on 09-24-2024 ALT [Catalytic activity/Vol] 10 U/L <35 [facility] Serum or plasma albumin alexis urement (mass/volume)Ordered By: Pawel Cason on 09-24-2024 Albumin [Mass/Vol] 3.5 g/dL 3.4-4.8 [facility] Serum or plasma albumin/glob ulin mass ratioOrdered By: Pawelladonna Cason on 09-24-2024 Albumin/Globulin [Mass ratio] 1.0 {ratio} 0.9-2.4 [facility] Serum or plasma alkaline [place] sphatase measurementOrdered By: Pawel Cason on 09-24-2024 ALP [Catalytic activity/Vol] 97 U/L 35-104 [facility] Serum or plasma anion gap de termination (moles/volume)Ordered By: Pawel Cason on 09-24-2024 Anion gap [Moles/Vol] 11 mmol/L 5-15 [facility] Serum or plasma calcium alexis urement (mass/volume)Ordered By: Pawel Cason on 09-24-2024 Calcium [Mass/Vol] 8.7 mg/dL 7.6-11.0 [facility] Serum or plasma potassium me asurementOrdered By: Pawel Cason on 09-24-2024 Potassium [Moles/Vol] 3.9 mmol/L 3.3-5.1 [facility] Serum or plasma sodium measu rement (moles/volume)Ordered By: Pawel Cason on 09-24-2024 Sodium [Moles/Vol] 133 mmol/L 133-145 [facility] Serum or plasma urea nitroge n measurement (mass/volume)Ordered By: Pawel Cason on 09-24-2024 Urea nitrogen [Mass/Vol] 10 mg/dL 4-19 [facility] Total proteinOrdered By: Pawel Cason on 09-24-2024 Protein [Mass/Vol] 6.8 g/dL 5.9-8.4 [facility] UA DIP, URINE (POC)on 2024 BILIRUBIN UA (POCT) Negative Negative [facility] CLARITY UA (POCT) Clear [facility] COLOR UA (POCT) Yellow [facility] GLUCOSE UA (POCT) Negative Negative mg/dL [facility] Hemoglobin Ql (U) Negative Negative [facility] Interpretation and review of laboratory results Abnormal [facility] KETONE UA (POCT) Negative Negative mg/dL [facility] LEUKOCYTES UA (POCT) Small Abnormal Negative [facility] NITRITE UA (POCT) Negative Negative [facility] PH UA (POCT) 5.5 4.5 - 8.0 [facility] Protein Ql (U) Negative Negative mg/dL [facility] SPECIFIC GRAVITY UA (POCT) 1.01 1.005 - 1.030 [facility] UROBILINOGEN UA (POCT) 1 Mary Ellen l E.U./dL [facility] Location:[facility], [address] [place] [address], [place], [place], [id number] [place] [address] POINT OF CARE [facility] White blood cell (WBC) count Ordered By: Pawel Cason on 09-24-2024 WBC (Bld) [#/Vol] 10.1 10*3/uL 4.4-11.[address] [facility] [address] CHEST W IVCONon CT CHEST W IVCON Normal [facility] CT Chest W contrast Nubia IMPRESSION: 1. No CT evidence of metastatic disease to the chest. 2. Sequela of prior granulomatous exposure. 3. Mild pulmonary fibrosis. Pre Owned Sales Manager[facility] Transcribe Date/Time: Sep 23 2024 4:37P Dictated by : BIBI MEJIA MD This examination was interpreted and the report reviewed and electronically signed by: BIBI MEJIA MD on Sep 23 2024 4:44PM [facility] DIVISION OF RADIOLOGY * * *Final Report* * * DATE OF EXAM: Sep 23 2024 4:19PM [facility] 0539 - CT CHEST W IVCON [...] Left hip arthroplasty. DIVISION OF RADIOLOGY Provider, [facility] - 09/23/2024 * * *Final Report* * * DATE OF EXAM: Sep 23 2024 4:19PM [facility] 0539 - CT CHEST W IVCON [...] prior granulomatous exposure. 3. Mild pulmonary fibrosis. Pre Owned Sales Manager: SABINO Transcribe Date/Time: Sep 23 2024 4:37P Dictated by : BIBI MEJIA MD This examination was interpreted and the report reviewed and electronically signed by: BIBI MEJIA MD on Sep 23 2024 4:44PM [facility] Radiology Study observation (narrative) [facility] CT Chest W contrast IVOrdere d By: Ccf Provider on 09-23-2024 [facility] MRI PELVIS WO/W IVCONon 08-30 MRI PELVIS WO/W IVCON Normal [facility] CNPNon 09-22-2024 CNPN Normal [facility] CNPNon 09-18-2024 CNPN Normal [facility] CNOVon 09-17-2024 CNOV Normal [facility] CBC W Auto Differential pane l (Bld)on 09-16-2024 Basophils (Bld) [#/Vol] 0.12 10*3/uL High [facility] Basophils/100 WBC (Bld) 1.2 % [facility] Differential cell count method Nom (Bld) Auto [facility] Eosinophils (Bld) [#/Vol] 0.09 10*3/uL [facility] Eosinophils/100 WBC (Bld) 0.9 % [facility] Erythrocyte distribution width (RBC) [Ratio] 17.1 % High 11.5 - 15.0 % [facility] Hematocrit (Bld) [Volume fraction] 38.8 % 36.0 - 46.0 % [facility] Hemoglobin (Bld) [Mass/Vol] 12 g/dL 11.5 - 15.5 g/dL [facility] Immature granulocytes (Bld) [#/Vol] 0.03 10*3/uL [facility] Immature granulocytes/100 WBC (Bld) 0.3 % [facility] Interpretation and review of laboratory results Abnormal [facility] Lymphocytes (Bld) [#/Vol] 1.13 10*3/uL [facility] Lymphocytes/100 WBC (Bld) 11.5 % [facility] MCH (RBC) [Entitic mass] 25.9 pg Low 26.0 - 34.0 pg [facility] MCHC (RBC) [Mass/Vol] 30.9 g/dL 30.5 - 36.0 g/dL [facility] MCV (RBC) [Entitic vol] 83.8 fL 80.0 - 100.0 fL [facility] Monocytes (Bld) [#/Vol] 0.82 10*3/uL [facility] Monocytes/100 WBC (Bld) 8.3 % [facility] Neutrophils (Bld) [#/Vol] 7.64 10*3/uL High [facility] Neutrophils/100 WBC (Bld) 77.8 % [facility] Nucleated RBC (Bld) [#/Vol] [facility] Nucleated RBC/100 WBC (Bld) [Ratio] 0 % /100 WBC [facility] Platelet mean volume (Bld) [Entitic vol] 10.9 fL 9.0 - 12.7 fL [facility] Platelets (Bld) [#/Vol] 275 10*3/uL [facility] RBC (Bld) [#/Vol] 4.63 10*6/uL 3.90 - 5.2 0 m/uL [facility] WBC (Bld) [#/Vol] 9.83 10*3/uL [facility] Basophils (Bld) [#/Vol] 0.12 10*3/uL High <0.11 [facility] Comment on above: Order Comment: Speci men Type: BLOOD SPECIMENOrdering Facility: [facility] Address: [address] [place], [place] [address] Performed By: #### 5 7021-8 ####[facility] MILLCLIFFWNCLIA [id number] [place] [address] [place] Basophils/100 WBC (Bld) 1.2 % Normal [facility] Comment on above: Order Comment: Speci men Type: BLOOD SPECIMENOrdering Facility: [facility] Address: [address] [place] [address] Performed By: #### 5 7021-8 ####[facility] ALYSSAWZEVLIA [id number] [place] [address] [place] Differential cell count method Nom (Bld) Auto Normal [facility] Comment on above: Order Comment: Speci men Type: BLOOD SPECIMENOrdering Facility: [facility] Address: [address] [place] [address] Performed By: #### 5 7021-8 ####[facility] HOSPITALZEVA [id number] [place] [address] [place] Eosinophils (Bld) [#/Vol] 0.09 10*3/uL Normal <0.46 [facility] Comment on above: Order Comment: Speci men Type: BLOOD SPECIMENOrdering Facility: [facility] Address: [address] [place] [address] Performed By: #### 5 7021-8 ####[facility] HOSPITALHAMLETA [id number] [place] [address] [place] Eosinophils/100 WBC (Bld) 0.9 % Normal [facility] Comment on above: Order Comment: Speci men Type: BLOOD SPECIMENOrdering Facility: [facility] Address: [address] [place] [address] Performed By: #### 5 7021-8 ####[facility] HOSPITALLIA [id number] [place] [address] [place] Erythrocyte distribution width (RBC) [Ratio] 17.1 % High 11.5-15.0 [facility] Comment on above: Order Comment: Speci men Type: BLOOD SPECIMENOrdering Facility: [facility] Address: [address] [place] [address] Performed By: #### 5 7021-8 ####[facility]ITALNCSEVI[facility] [id number] [place] [address] [place] Hematocrit (Bld) [Volume fraction] 38.8 % Normal 36.0-46.0 [facility] Comment on above: Order Comment: Speci men Type: BLOOD SPECIMENOrdering Facility: [facility] Address: [address] [place] [address] Performed By: #### 5 7021-8 ####[facility]ITALNCSEVIER VAL[facility] [id number] [place] [address] [place] Hemoglobin (Bld) [Mass/Vol] 12.0 g/dL Normal 11.5-15.5 [facility] Comment on above: Order Comment: Speci men Type: BLOOD SPECIMENOrdering Facility: [facility] Address: [address] [place] [address] Performed By: #### 5 7021-8 ####[facility] HOSPITALA [id number] [place] [address] [place] Immature granulocytes (Bld) [#/Vol] 0.03 10*3/uL Normal <0.10 [facility] Comment on above: Order Comment: Speci men Type: BLOOD SPECIMENOrdering Facility: [facility] Address: [address] [place] [address] Performed By: #### 5 7021-8 ####[facility] HOSPITALNCLIA [id number] [place] [address] [place] Immature granulocytes/100 WBC (Bld) 0.3 % Normal [facility] Comment on above: Order Comment: Speci men Type: BLOOD SPECIMENOrdering Facility: [facility] Address: [address] [place] [address] Performed By: #### 5 7021-8 ####[facility] MILLWNCLIA [id number] [place] [address] [place] Lymphocytes (Bld) [#/Vol] 1.13 10*3/uL Normal 1.00-4.00 [facility] Comment on above: Order Comment: Speci men Type: BLOOD SPECIMENOrdering Facility: [facility] Address: [address] [place] [address] Performed By: #### 5 7021-8 ####[facility] HOSPITALNCLIA [id number] [place] [address] [place] Lymphocytes/100 WBC (Bld) 11.5 % Normal [facility] Comment on above: Order Comment: Speci men Type: BLOOD SPECIMENOrdering Facility: [facility] Address: [address] [place] [address] Performed By: #### 5 7021-8 ####[facility] HOSPITALNCLIA [id number] [place] [address] [place] MCH (RBC) [Entitic mass] 25.9 pg Low 26.0-34.0 [facility] Comment on above: Order Comment: Speci men Type: BLOOD SPECIMENOrdering Facility: [facility] Address: [address] [place] [address] Performed By: #### 5 7021-8 ####[facility] HOSPITALNCLIA [id number] [place] [address] [place] MCHC (RBC) [Mass/Vol] 30.9 g/dL Normal 30.5-36.0 [facility] Comment on above: Order Comment: Speci men Type: BLOOD SPECIMENOrdering Facility: [facility] Address: [address] [place] [address] Performed By: #### 5 7021-8 ####[facility] HOSPITALLIA [id number] [place] [address] [place] MCV (RBC) [Entitic vol] 83.8 fL Normal 80.0-100.0 C [facility] Comment on above: Order Comment: Speci men Type: BLOOD SPECIMENOrdering Facility: [facility] Address: [address] [place] [address] Performed By: #### 5 7021-8 ####[facility] DORAL [id number] [place] [address] [place] Monocytes (Bld) [#/Vol] 0.82 10*3/uL Normal <0.87 [facility] Comment on above: Order Comment: Speci men Type: BLOOD SPECIMENOrdering Facility: [facility] Address: [address] [place] [address] Performed By: #### 5 7021-8 ####[facility] DORAL [id number] [place] [address] [place] Monocytes/100 WBC (Bld) 8.3 % Normal C [facility] Comment on above: Order Comment: Speci men Type: BLOOD SPECIMENOrdering Facility: [facility] Address: [address] [place] [address] Performed By: #### 5 7021-8 ####[facility] DORAL [id number] [place] [address] [place] Neutrophils (Bld) [#/Vol] 7.64 10*3/uL High 1.45-7.50 [facility] Comment on above: Order Comment: Speci men Type: BLOOD SPECIMENOrdering Facility: [facility] Address: [address] [place] [address] Performed By: #### 5 7021-8 ####[facility] DORAL [id number] [place] [address] [place] Neutrophils/100 WBC (Bld) 77.8 % Normal [facility] Comment on above: Order Comment: Speci men Type: BLOOD SPECIMENOrdering Facility: [facility] Address: [address] [place] [address] Performed By: #### 5 7021-8 ####[facility] DORAL [id number] [place] [address] [place] Nucleated RBC (Bld) [#/Vol] 10*3/uL Normal <0.01 [facility] Comment on above: Order Comment: Speci men Type: BLOOD SPECIMENOrdering Facility: [facility] Address: [address] [place] [address] Performed By: #### 5 7021-8 ####[facility]ITALNCSEVI[facility] [id number] [place] [address] [place] Nucleated RBC/100 WBC (Bld) [Ratio] 0.0 /100 WBC Normal [facility] Comment on above: Order Comment: Speci men Type: BLOOD SPECIMENOrdering Facility: [facility] Address: [address] [place] [address] Performed By: #### 5 7021-8 ####[facility] D[facility]AL [id number] [place] [address] [place] Platelet mean volume (Bld) [Entitic vol] 10.9 fL Normal 9.0-12.7 [facility] Comment on above: Order Comment: Speci men Type: BLOOD SPECIMENOrdering Facility: [facility] Address: [address] [place] [address] Performed By: #### 5 7021-8 ####[facility] DORAL [id number] [place] [address] [place] Platelets (Bld) [#/Vol] 275 10*3/uL Normal 150-400 [facility] Comment on above: Order Comment: Speci men Type: BLOOD SPECIMENOrdering Facility: [facility] Address: [address] [place] [address] Performed By: #### 5 7021-8 ####[facility] ALYSSAKEENENCLIA [id number] [place] [address] [place] RBC (Bld) [#/Vol] 4.63 10*6/uL Normal 3.90-5.20 [facility] Comment on above: Order Comment: Speci men Type: BLOOD SPECIMENOrdering Facility: [facility] Address: [address] [place] [address] Performed By: #### 5 7021-8 ####[facility]ITALNCLIA [id number] [place] [address] [place] WBC (Bld) [#/Vol] 9.83 10*3/uL Normal 3.70-11.00 [facility] Comment on above: Order Comment: Speci men Type: BLOOD SPECIMENOrdering Facility: [facility] Address: [address] [place] [address] Performed By: #### 5 7021-8 ####[facility]ITALNCLIA [id number] [place] [address] [place] CNPNon 09-16-2024 CNPN Normal [facility] metabolic 2000 panelOrdered By: Frannie Puente on 09-16-2024 Albumin [Mass/Vol] 3.9 g/dL 3.9 - 4.9 g/dL [facility] ALP [Catalytic activity/Vol] 104 U/L 34 - 123 U/L [facility] ALT [Catalytic activity/Vol] 10 U/L 7 - 38 U/L [facility] Anion gap [Moles/Vol] 10 mmol/L 8 - 15 mmol/L [facility] AST [Catalytic activity/Vol] 19 U/L 13 - 35 U/L [facility] Bilirubin [Mass/Vol] 0.3 mg/dL 0.2 - 1 .3 mg/dL [facility] Calcium [Mass/Vol] 9.4 mg/dL 8.5 - 10. 2 mg/dL [facility] Chloride [Moles/Vol] 102 mmol/L 98 - 10 7 mmol/L [facility] CO2 [Moles/Vol] 22 mmol/L 22 - 30 mmol/L [facility] Creatinine [Mass/Vol] 0.7 mg/dL 0.58 - 0.96 mg/dL [facility] GFR/1.73 sq M.predicted among non-blacks MDRD (S/P/Bld) [Vol rate/Area] 96 mL/min/{1.73_m2} - PINF [facility] Comment on above: Estimated Glomerular Filtration Rate [...] [Mass/Vol] 94 mg/dL 74 - 99 mg/dL [facility] Comment on above: The [place] Diabete [employer] Association (ADA) provides guidance for [...] Standards of Medical Care in Diabetes 2016, [place] [employer]. Diabetes Care. 2016.39(Suppl 1). Interpretation and review of laboratory results Abnormal [facility] Potassium [Moles/Vol] 3.8 mmol/L 3.7 - 5.1 mmol/L [facility] Protein [Mass/Vol] 7.4 g/dL 6.3 - 8.0 g/dL [facility] Sodium [Moles/Vol] 134 mmol/L Low 136 - 144 mmol/L [facility] Urea nitrogen [Mass/Vol] 14 mg/dL 7 - 21 mg/dL [facility] Comprehensive metabolic 2000 panelon 09-16-2024 Albumin [Mass/Vol] 3.9 g/dL Normal 3.9-4.9 [facility] Comment on above: Order Comment: Speci men Type: BLOOD SPECIMENOrdering Facility: [facility] Address: [address] [place] [address] Performed By: #### 2 4323-8 ####[facility] CHILDRENWNCLIA [id number] [place] [address] [place] ALP [Catalytic activity/Vol] 104 U/L Normal 34-123 [facility] Comment on above: Order Comment: Speci men Type: BLOOD SPECIMENOrdering Facility: [facility] Address: [address] [place] [address] Performed By: #### 2 4323-8 ####[facility] CHILDRENWNCLIA [id number] [place] [address] [place] ALT [Catalytic activity/Vol] 10 U/L Normal 7-38 [facility] Comment on above: Order Comment: Speci men Type: BLOOD SPECIMENOrdering Facility: [facility] Address: [address] [place] [address] Performed By: #### 2 4323-8 ####[facility] HOSPITALLIA [id number] [place] [address] [place] Anion gap [Moles/Vol] 10 mmol/L Normal 8-15 [facility] Comment on above: Order Comment: Speci men Type: BLOOD SPECIMENOrdering Facility: [facility] Address: [address] [place] [address] Performed By: #### 2 4323-8 ####[facility] MILLWNCLIA [id number] [place] [address] [place] AST [Catalytic activity/Vol] 19 U/L Normal 13-35 [facility] Comment on above: Order Comment: Speci men Type: BLOOD SPECIMENOrdering Facility: [facility] Address: [address] [place] [address] Performed By: #### 2 4323-8 ####[facility] RIGOBERTO MILLTOWNCLIA [id number] [place] [address] [place] Bilirubin [Mass/Vol] 0.3 mg/dL Normal 0.2-1.3 [facility] Comment on above: Order Comment: Speci men Type: BLOOD SPECIMENOrdering Facility: [facility] Address: [address] [place] [address] Performed By: #### 2 4323-8 ####[facility] CHILDRENWNCLIA [id number] [place] [address] [place] Calcium [Mass/Vol] 9.4 mg/dL Normal 8.5-10.2 [facility] Comment on above: Order Comment: Speci men Type: BLOOD SPECIMENOrdering Facility: [facility] Address: [address] [place] [address] Performed By: #### 2 4323-8 ####[facility]ITALNCLIA [id number] [place] [address] [place] Chloride [Moles/Vol] 102 mmol/L Normal 98-107 [facility] Comment on above: Order Comment: Speci men Type: BLOOD SPECIMENOrdering Facility: [facility] Address: [address] [place] [address] Performed By: #### 2 4323-8 ####[facility] MILLTOWNCLIA [id number] [place] [address] [place] CO2 [Moles/Vol] 22 mmol/L Normal 22-30 [facility] Comment on above: Order Comment: Speci men Type: BLOOD SPECIMENOrdering Facility: [facility] Address: [address] [place] [address] Performed By: #### 2 4323-8 ####[facility] CHILDRENWNCLIA [id number] [place] [address] [place] Creatinine [Mass/Vol] 0.70 mg/dL Normal 0.58-0.96 [facility] Comment on above: Order Comment: Mindy mcfarlane Type: BLOOD SPECIMENOrdering Facility: [facility] Address: [address] [place] [address] Performed By: #### 2 4323-8 ####[facility] DORAL [id number] [place] [address] [place] Creatinine and Glomerular filtration rate.predicted panel (S/P/Bld) 96 mL/min/1.73m??? Normal >=60 [facility] Comment on above: Order Comment: Mindy mcfarlane Type: BLOOD SPECIMENOrdering Facility: [facility] Address: [address] [place] [address] Result Comment: Sonia mated Glomerular Filtration Rate [...] actual GFR. Performed By: #### 2 4323-8 ####[facility] DORAL [id number] [place] [address] [place] Glucose [Mass/Vol] 94 mg/dL Normal 74-99 [facility] Comment on above: Order Comment: Mindy mcfarlane Type: BLOOD SPECIMENOrdering Facility: [facility] Address: [address] [place] [address] Result Comment: The [place] Diabetes Association (ADA) provides guidance for cutoff [...] Standards of Medical Care in Diabetes 2016, [place] [employer]. Diabetes Care. 2016.39(Suppl 1). Performed By: #### 2 4323-8 ####[facility] RIGOBERTO SHAHMICK [id number] [place] [address] [place] Potassium [Moles/Vol] 3.8 mmol/L Normal 3.7-5.1 [facility] Comment on above: Order Comment: Speci men Type: BLOOD SPECIMENOrdering Facility: [facility] Address: [address] [place], [place] [address] Performed By: #### 2 4323-8 ####[facility] HOSPITALNICOLE [id number] [place] [address] [place] Protein [Mass/Vol] 7.4 g/dL Normal 6.3-8.0 [facility] Comment on above: Order Comment: Speci men Type: BLOOD SPECIMENOrdering Facility: [facility] Address: [address] [place], [place] [address] Performed By: #### 2 4323-8 ####[facility] HOSPITALNICOLE [id number] [place] [address] [place] Sodium [Moles/Vol] 134 mmol/L Low 136-144 [facility] Comment on above: Order Comment: Speci men Type: BLOOD SPECIMENOrdering Facility: [facility] Address: [address] [place] [address] Performed By: #### 2 4323-8 ####[facility] HOSPITALNCBLAKE [id number] [place] [address] [place] Urea nitrogen [Mass/Vol] 14 mg/dL Normal 7-21 [facility] Comment on above: Order Comment: Speci men Type: BLOOD SPECIMENOrdering Facility: [facility] Address: [address] [place] [address] Performed By: #### 2 4323-8 ####[facility] RIGOBERTO SHAHKEENENICOLE [id number] [place] [address] [place] DPYD/UGT1A1 GENOTYPING PANEL on 09-16-2024 DPYD/UGT1A1 GENOTYPING PANEL RESULT Normal [facility] Comment on above: Order Comment: Speci men Type: BLOOD SPECIMENOrdering Facility: [facility] Address: [facility] [place] [address] Result Comment: [facility] GTxcel (PGx) DPYD and UGT1A1 GenotypingLaboratory Accession Number: [id number] Genotype: *1/*1DPYD Activity Score: 2DPYD Predicted Phenotype: DPYD Normal UpjftoiinfqSPR8A8 Genotype: *1/*8KWI6J4 Predicted Phenotype: UGT1A1 Normal MetabolizerInterpretation:Two normal function [...] increased function UGT1A1 allele or two increased oxkcjbhnXRM5L7 alleles were observed in this sample (see [...] involved in the metabolism of fluoropyrimidines. The MMA9N3ectj encodes UDP-glucuronosyltransferase (UGT). UGT is involved in [...] an autosomalrecessive inborn error of metabolism (OMIM: 443382). DPD deficiencyexhibits a wide range of phenotypic [...] list below) in the DPYD gene (OMIM 971615) wiuEEG2M6 gene (OMIM 541092). This test does not detect all sequencevariants [...] orabsence of the following variants, RefSNP ID: [id number], [id number] (TA repeats), and [id number].DPYD star alleles and targeted variants:RefSNP ID Legacy Total Allele Highest Allele Name Frequency Frequency General Population (Population)No variantdetected *[id number] *2A 0.6% 2.4% (Eur F)[id number] *8 0.01% 0.03% (S )[id number] *10 n/gak48372454 *12 0.0008% 0.003% (S )[id number] *13 0.03% 0.06% (Eur F)[id number] Y186C 0.2% 2.15% ()[id number] c.2846A>T 0.3% 0.5% (Eur NF)[id number] HapB3 1.4% 2.1 % (Eur NF)[id number] HapB3(c.1236G>A) 1.4% 2.1% (Eur NF)Population frequencies are from gnomAD and may be different inspecific ethnic groups. The allele frequency shown is the total allelefrequency in all populations. The highest allele frequency for asingle population is also noted (Eur F = Barbadian, Eur NF = non-Barbadian, S = South ). Note: [id number] (HapB3)and [id number] (c.1236G>A) are in linkage disequilibrium thus aretypically seen together.References:1) Clinical Pharmacogenetics Implementation Consortium (CPIC):www.CPICpgx.org2) Pharmacogene Variation Consortium (PharmVar): www.PharmVar.org3) Genome Aggregation Database V2.1.1 (gnomAD), accessed July2021, https://gnomad.broadinstitfort smith.org4) Yumiko M, Adrián EM, Kings JM, et al. PharmacogenomicsKnowledge for Personalized Medicine Clinical Pharmacology andTherapeutics (2012) 92(4): 414-417.5) Sky U, Jerilyn LM, Rosita SM, et al. Clinical PharmacogeneticsImplementation Consortium (CPIC) Guideline for DihydropyrimidineDehydrogenase Genotype and Fluoropyrimidine Dosin Update. ClinPharmacol Ther. 2018;103(2):210-216.6) Taggs, Vaccibody of Medicine 2020. Dihydropyrimidinedehydrogenase deficiency, accessed 14 February 2021,https://medlineplus.gov/genetics/condition/dihydropyrimid caz-tcjscyzfhkxlz-qeknugfloe/#resources7) Meredith N, Nicol MATHEW, Vicky RCM, van shilpi ABP. Purine andPyrimidine Metabolism: Pyrimidine Metabolism: DihydropyrimidineDehydrogenase. Frank's Principles and Practice of MedicalGenetics and Genomics: Metabolic Disorders, Seventh Edition. Edited byDelfina Rodriguez al, Elsevier. 2020. Sections 6.3.4 - 6.3.4.4https://xyl-dulhqkynbth-jbw.ccmain.[facility].org/#!/freeman nt/book/3-s2.0-U2517673311320316547?scrollTo=%25yr76830450) Violette RS, Maggi MH, Nasreen CE, et al. Clinical PharmacogeneticsImplementation Consortium (CPIC) Guideline for UGT1A1 and AtazanavirPrescribing. Clinical Pharmacology and Therapeutics (2016) Apr;99(4):363-9.9) King Karol, Viky TRINIDAD. Overview of Glibert's syndrome. Drug TherBull. 2019 b 57(2):27-30.10) [facility] 2020, Gilbert Syndrome, accessed 14 February 2021,https://my.[facility].org/health/diseases/17451-zfpa erts-syndromeDisclaimer:This test was developed and its performance characteristics determinedby [facility]'s Pathology and Laboratory Medicine Department. Ithas not been cleared or approved by the FDA. [facility] is regulated under CLIAas certified to perform high-complexity testing. This test is used forclinical purposes. It should not be regarded as investigational or forresearch.Testing and interpretation performed at [facility], [address] [place] [address]. CLIA Number: [id number] reviewed by Keri Yancey MD Performed By: #### D UPNL1 ####[facility] LIMSCLIA [id number] [place] [address] [place] HBV core Ab Ser Qlon 025 HBV core Ab Ql (S) Negative Normal Negative [facility] Comment on above: Order Comment: Speci men Type: BLOOD SPECIMENOrdering Facility: [facility] Address: [address] [place] [address] Result Comment: No e vidence of current or past infection with Hepatitis B virus. Should recent infection be suspected, repeat testing may be considered 3-4 weeks after this draw. Performed By: #### 2 2322-2, 35322-2, 5195-3, 41144-5 ####[facility] LABCLIA [id number] [place] [address] [place] HBV surface Ab Ql (S)on 08-29 HBV surface Ab Qn (S) <8.00 Normal [facility] Comment on above: Order Comment: Speci men Type: BLOOD SPECIMENOrdering Facility: [facility] Address: [address] [place] [address] Result Comment: <8 m IU/mL: No serological evidence of immunity to Hepatitis B Virus.>/= 8 to <12 mIU/mL: No serological evidence of immunity to Hepatitis B Virus.>/= 12 mIU/mL: Consistent with serological evidence of immunity to Hepatitis B Virus. Performed By: #### 2 2322-2, 79533-8, 5195-3, 78087-6 ####[facility] LABCLIA [id number] [place] [address] [place] HBV surface Ab Ser Qlon 08-29 HBV surface Ab Ql (S) Negative Normal [facility] Comment on above: Order Comment: Speci men Type: BLOOD SPECIMENOrdering Facility: [facility] Address: [address] [place] [address] Result Comment: No s erological evidence of immunity to Hepatitis B Virus. Performed By: #### 2 2322-2, 11916-5, 5195-3, 89655-5 ####[facility] LABCLIA [id number] [place] [address] [place] HBV surface Ag Ser Qlon 08-29 HBV surface Ag Ql (S) Negative Normal Negative [facility] Comment on above: Order Comment: Speci men Type: BLOOD SPECIMENOrdering Facility: [facility] Address: [address] [place] [address] Performed By: #### 2 2322-2, 52300-0, 5195-3, 97461-4 ####[facility] LABCLIA [id number] [place] [address] [place] HCV Ab Ser Qlon 09-16-2024 HCV Ab Ql (S) Negative Normal Negative [facility] Comment on above: Order Comment: Speci men Type: BLOOD SPECIMENOrdering Facility: [facility] Address: [address] [place] [address] Result Comment: The result suggests no evidence of active infection with Hepatitis C virus. Should recent infection be suspected, repeat testing may be considered 4-6 weeks after this draw. Performed By: #### 1 6128-1 ####[facility] LABCLIA [id number] [place] [address] [place] HIV 1+2 Ab IA Qlon 5 HIV 1 and 2 Ab IA.rapid Nom (S/P/Bld) Normal [facility] Comment on above: Order Comment: Speci men Type: BLOOD SPECIMENOrdering Facility: [facility] Address: [address] [place] [address] Result Comment: Test not indicated. Performed By: #### 2 2322-2, 99082-6, 5195-3, 41097-6 ####[facility] LABCLIA [id number] [place] [address] [place] HIV 1+2 Ab+HIV1 p24 Ag IA Ql Non-Reactive Normal Nonreactive [facility] Comment on above: Order Comment: Speci men Type: BLOOD SPECIMENOrdering Facility: [facility] Address: [address] [place] [address] Performed By: #### 2 2322-2, 81264-4, 5-3, 37391-0 ####[facility] LABCLIA [id number] [place] [address] [place] HIV immunoassay testing algorithm interpretation (S/P/Bld) [Interp] Normal [facility] Comment on above: Order Comment: Speci men Type: BLOOD SPECIMENOrdering Facility: [facility] Address: [address] [place] [address] Result Comment: No e vidence of HIV-1 or HIV-2 infection. Should recent infection be suspected, repeat testing may be considered 2-3 weeks after this draw.[place] Rev. Code 3701.243(E): This information has been [...] or diagnoses. Performed By: #### 2 2322-2, 37632-8, 5195-3, 61332-8 ####[facility] LABCLIA [id number] [facility] [id number] [address] [place] US LEG VEIN DVT UNL VAS LABo n 09-16-2024 US LEG VEIN DVT UNL VAS LAB Normal [facility] CNOVSPon 09-15-2024 CNOVSP Normal [facility] CNPNon 09-15-2024 CNPN Normal [facility] Surgery Visit Reporton 09-15 Surgery Visit Report [facility] [address] [place] [address] OFFICE VISIT Date of Service: 09/15/24 MR#: [id number] Acct: [id number] Name: MARIMAR WANG Rep #: [id number] : 1960 Provider: Dr. Kenya fuentes MD Age/Sex: 64/F Location: [facility] Status: Signed Intake Vital Signs 09/03/24 14:00 [...] QHS MENTAL HEALTH 6 09/15/24 History peg 961-cvquyhfzzfgq-vvqvlsf n 1 1 drp OP 4X/DAY DRY [...] Constipation 09/15/24 History gram/dose oral powder (Miralax) atgwmb-xgwpcjfq-fbzibvs See Rx Instructions PO .COMPLEX 09/15/24 Rx 36,000-114,000-180,000 unit #300 caps capsule,delay rel (Creon) acetaminophen 500 mg tablet 1,000 mg PO Q6H PRN fever or pain 11/15/23 09/15/24 History atorvastatin 80 mg tablet 80 mg PO QHS 11/15/23 09/15/24 His tory hydrocortisone 2.5 % topical cream 1 applic [place] BID PRN Crohn's 10/1909/15/24 Rx with perineal [...] right groin (more content not included)... Normal [facility] Jeremy 09-10-2024 [facility] MARIMAR WANG ([id number]) 1960 F Date Time Provider Department 09/10/24 [...] Buck LPN Nurse for Dr. Jennifer Arias, Division Human Resources Manager [facility] Sarah Pearson PA-C 09/16/2024 11:56 AM Signed [...] Fully Assessed Reason for Visit: Patient Question [2597] Continuity Of Care [906] Cmt: Dr. Josh [...] 80 mg by mouth once daily. - cahuwo-lcqpuqkd-cvfytuz (CREON 36) 36,000-114,000- 180,000 unit delayed release [...] mg tab (more content not included)... Normal [facility] CNPNon 09-07-2024 CNPN Normal [facility] Absolute lymphocyte countOrd ered By: Kenya Garcia on 09-03-2024 Lymphocytes Auto (Unsp spec) [#/Vol] 0.97 10*3/uL 0.83-4.51 [facility] Absolute neutrophil countOrd ered By: Kenya Garcia on 09-03-2024 Neutrophils (Bld) [#/Vol] 6.1 10*3/uL 2.0-7.7 [facility] Automated lymphocyte count a s percentage of total leukocytesOrdered By: Kenya Garcia on 09-03-2024 Lymphocytes/100 WBC Auto (Unsp spec) 11.9 % Low 19-41 [facility] Basic Metabolic Profile (BMP )on 09-03-2024 BUN/CRE 16.0 RATIO Normal 10-20 [facility] Comment on above: Performed By: #### L 500.2500, L100.0100 ####[facility] [address] [place], [address] CA,Total 8.2 mg/dL Low 8.5-10.1 [facility] Comment on above: Performed By: #### L 500.2500, L100.0100 ####[facility] [address] [place], [address] Chloride [Moles/Vol] 102 mmol/L Normal 98-107 [facility] Comment on above: Performed By: #### L 500.2500, L100.0100 ####[facility] [address] [place], [address] CO2 [Moles/Vol] 24.0 mmol/L Normal 21.0-32.0 [facility] Comment on above: Performed By: #### L 500.2500, L100.0100 ####[facility] [address] [place], [address] Creatinine [Mass/Vol] 0.50 mg/dL Low 0.55-1.02 [facility] Comment on above: Result Comment: The validity of the calculated GFR GFRAA in patients over 70 years has not been determined. Clinical correlation is essential. Performed By: #### L 500.2500, L100.0100 ####[facility] [address] [place], [address] ECRCL 76.90 ml/min Normal [facility] Comment on above: Performed By: #### L 500.2500, L100.0100 ####[facility] [address] [place], [address] EST GFR - AA 159 mL/min Normal >60 [facility] Comment on above: Result Comment: Afri can Malawian GFR Calc Performed By: #### L 500.2500, L100.0100 ####[facility] [address] [place], [address] GAP 7 Normal 5-15 [facility] Comment on above: Performed By: #### L 500.2500, L100.0100 ####[facility] [address] [place], [address] GFR/1.73 sq M.predicted among non-blacks MDRD (S/P/Bld) [Vol rate/Area] 132 mL/min/{1.73_m2} Normal >60 [facility] Comment on above: Result Comment: Non- GFR Calc Performed By: #### L 500.2500, L100.0100 ####[facility] [address] [place], [address] Glucose [Mass/Vol] 92 mg/dL Normal 74-106 [facility] Comment on above: Performed By: #### L 500.2500, L100.0100 ####[facility] [address] [place], [address] Potassium [Moles/Vol] 3.2 mmol/L Low 3.5-5.1 [facility] Comment on above: Performed By: #### L 500.2500, L100.0100 ####[facility] [address] [place], [address] Sodium [Moles/Vol] 133 mmol/L Low 136-145 [facility] Comment on above: Performed By: #### L 500.2500, L100.0100 ####[facility] [address] [place], [address] Urea nitrogen [Mass/Vol] 8 mg/dL Normal 7-18 [facility] Comment on above: Performed By: #### L 500.2500, L100.0100 ####[facility] [address] [place], [address] Basophil percentageOrdered B y: Kenya Garcia on 09-03-2024 Basophils/100 WBC (Bld) 0.7 % 0-1 [facility] Blood urea nitrogen (BUN)/cr eatinine ratioOrdered By: Kenya Garcia on 09-03-2024 Urea nitrogen/Creatinine [Mass ratio] 16.0 mg/mg 10-20 [facility] CBC W/Diff, Automatedon Absolute Lymph 0.97 X10 3/uL Normal 0.83-4.51 [facility] Comment on above: Performed By: #### L 500.2500, L100.0100 ####[facility] [address] [place], [address] Absolute Neut 6.1 X10 3/uL Normal 2.0-7.7 [facility] Comment on above: Performed By: #### L 500.2500, L100.0100 ####[facility] [address] [place], [address] Basophils/100 WBC (Bld) 0.7 % Normal 0-1 [facility] Comment on above: Performed By: #### L 500.2500, L100.0100 ####[facility] [address] [place], [address] Eosinophils/100 WBC (Bld) 0.5 % Normal 0-5 [facility] Comment on above: Performed By: #### L 500.2500, L100.0100 ####[facility] [address] [place], [address] Erythrocyte distribution width (RBC) [Ratio] 17.3 % High 11.6-14.6 [facility] Comment on above: Performed By: #### L 500.2500, L100.0100 ####[facility] [address] [place], [address] Hematocrit (Bld) [Volume fraction] 31.2 % Low 37-47 [facility] Comment on above: Performed By: #### L 500.2500, L100.0100 ####[facility] [address] [place], [address] Hemoglobin (Bld) [Mass/Vol] 9.6 g/dL Low 12.0-15.0 [facility] Comment on above: Performed By: #### L 500.2500, L100.0100 ####[facility] [address] [place], [address] IG% 0.500 Normal 0.0-0.9 [facility] Comment on above: Result Comment: IG% - Immature Granulocytes (promyelocytes, myelocytes and metamyelocytes) > 1% indicates that a LEFT SHIFT is Present. Performed By: #### L 500.2500, L100.0100 ####[facility] [address] [place], [address] Lymphocytes/100 WBC (Bld) 11.9 % Low 19-41 [facility] Comment on above: Performed By: #### L 500.2500, L100.0100 ####[facility] [address] [place], [address] MCH (RBC) [Entitic mass] 25.5 pg Low 27.0-32.0 [facility] Comment on above: Performed By: #### L 500.2500, L100.0100 ####[facility] [address] [place], [address] MCHC (RBC) [Mass/Vol] 30.8 g/dL Low 32-36 [facility] Comment on above: Performed By: #### L 500.2500, L100.0100 ####[facility] [address] [place], [address] MCV (RBC) [Entitic vol] 83.0 fL Normal 81-99 [facility] Comment on above: Performed By: #### L 500.2500, L100.0100 ####[facility] [address] [place], [address] Monocytes/100 WBC (Bld) 11.7 % High 0-10 [facility] Comment on above: Performed By: #### L 500.2500, L100.0100 ####[facility] [address] [place], [address] Neutrophils/100 WBC (Bld) 74.7 % High 47-70 [facility] Comment on above: Performed By: #### L 500.2500, L100.0100 ####[facility] [address] [place], [address] Nucleated RBC (Bld) [#/Vol] 0 10*3/uL Normal 0-5 [facility] Comment on above: Performed By: #### L 500.2500, L100.0100 ####[facility] [address] [place], [address] Platelet mean volume (Bld) [Entitic vol] 11.4 fL Normal 6.2-12.0 [facility] Comment on above: Performed By: #### L 500.2500, L100.0100 ####[facility] [address] [place], [address] Platelets (Bld) [#/Vol] 219 10*3/uL Normal 150-450 [facility] Comment on above: Performed By: #### L 500.2500, L100.0100 ####[facility] [address] [place], [address] RBC (Bld) [#/Vol] 3.76 10*6/uL Low 4.2-5.4 [facility] Comment on above: Performed By: #### L 500.2500, L100.0100 ####[facility] [address] [place], [address] RDW SD 52.7 fl High 35.1-43.9 [facility] Comment on above: Performed By: #### L 500.2500, L100.0100 ####[facility] [address] [place], [place], [address] WBC (Bld) [#/Vol] 8.1 10*3/uL Normal 4.4-11.0 [facility] Comment on above: Performed By: #### L 500.2500, L100.0100 ####[facility] [address] [place], [place], [address] Carbon dioxide measurementOr dered By: Kenya Garcia on 09-03-2024 CO2 [Moles/Vol] 24.0 mmol/L 21.0-32.0 [facility] Chloride measurementOrdered By: Kenya Garcia on 09-03-2024 Chloride [Moles/Vol] 102 mmol/L 98-107 [facility] Eosinophil percentageOrdered By: Kenya Garcia on 09-03-2024 Eosinophils/100 WBC (Bld) 0.5 % 0-5 [facility] Erythrocyte distribution wid th ratioOrdered By: Kenya Garcia on 09-03-2024 Erythrocyte distribution width (RBC) [Ratio] 17.3 % High 11.6-14.6 [facility] Erythrocyte distribution wid th standard deviationOrdered By: Kenya Garcia on 09-03-2024 Erythrocyte distribution width (RBC) [Entitic vol] 52.7 fL High 35.1-43.9 [facility] Erythrocyte distribution width (RBC) [Ratio] 52.7 fl High 35.1-43.9 [facility] Estimated glomerular filtrat ion rate (GFR) AmericanOrdered By: Kenya Garcia on 09-03-2024 Estimated GFR (MDRD) Amer 159 mL/min >60 [facility] Comment on above: GFR Calc Estimation of creatinine olga aranceOrdered By: Kenya Garcia on 09-03-2024 Estimated Creatinine Clearance Calc 76.90 ml/min [facility] Glomerular filtration rate ( GFR) estimationOrdered By: Kenya Garcia on 09-03-2024 Estimated GFR (MDRD) Non-Af Amer 132 mL/min >60 [facility] Comment on above: Non- GFR Calc GFR/1.73 sq M.predicted among non-blacks MDRD (S/P/Bld) [Vol rate/Area] 132 mL/min/{1.73_m2} >60 [facility] Comment on above: Non- GFR Calc Glucose measurementOrdered B y: Kenya Radha on 09-03-2024 Glucose [Mass/Vol] 92 mg/dL 74-106 [facility] Hematocrit Auto (Bld) [Volum e fraction]Ordered By: Kenya Garcia on 09-03-2024 Hematocrit (Bld) [Volume fraction] 31.2 % Low 37-47 [facility] Hemoglobin measurementOrdere d By: Kenya Garcia on 09-03-2024 Hemoglobin (Bld) [Mass/Vol] 9.6 g/dL Low 12.0-15.0 [facility] Immature granulocytes/100 WB C Auto (Bld)Ordered By: Kenya Garcia on 09-03-2024 Immature granulocytes/100 WBC (Bld) 0.500 % 0.0-0.9 [facility] Comment on above: IG% - Immature Granu locytes (promyelocytes, myelocytes and metamyelocytes) > 1% indicates that a LEFT SHIFT is Present. Lymphocytes Auto (Unsp spec) [#/Vol]Ordered By: Kenya Garcia on 09-03-2024 Lymphocytes (Bld) [#/Vol] 0.97 10*3/uL 0.83-4.51 [facility] Lymphocytes/100 WBC Auto (Un sp spec)Ordered By: Kenya Garcia on 09-03-2024 Lymphocytes/100 WBC (Bld) 11.9 % Low 19-41 [facility] MCV (mean corpuscular volume ) determinationOrdered By: Kenya Garcia on 09-03-2024 MCV (RBC) [Entitic vol] 83.0 fL 81-99 [facility] MR/PTBWTRYS5qg 09-03-2024 MR/POSTOPAN2 [facility] Medical Records Department [address] [place] [address] Anesthesia Postop Eval II 09/03/24 1608 MR#: [id number] Acct: [id number] Name: MARIMAR WANG Rep #: [id number] : 1960 64 From: Stas Young MD PCP: Julio Corina, [employer]-C Status:ADM AMOR Y Race: C Location: [facility] PO563-5 Anesthesia Postop Eval I Sum Postop Eval [...] MD Cosigner Signature: Date CC: Signed Normal [facility] Mean corpuscular hemoglobin (MCH) determinationOrdered By: Kenya Garcia on 09-03-2024 MCH (RBC) [Entitic mass] 25.5 pg Low 27.0-32.0 [facility] Mean corpuscular hemoglobin concentration (MCHC) determinationOrdered By: Kenya Garcia on 09-03-2024 MCHC (RBC) [Mass/Vol] 30.8 g/dL Low 32-36 [facility] Mean platelet volume determi nationOrdered By: Kenya Garcia on 09-03-2024 Platelet mean volume (Bld) [Entitic vol] 11.4 fL 6.2-12.0 [facility] Monocyte percentageOrdered B y: Kenya Garcia on 09-03-2024 Monocytes/100 WBC (Bld) 11.7 % High 0-10 [facility] Neutrophil percentageOrdered By: Kenya Garcia on 09-03-2024 Neutrophils/100 WBC (Bld) 74.7 % High 47-70 [facility] Nucleated red blood cell per centageOrdered By: Kenya Garcia on 09-03-2024 Nucleated RBC/100 WBC (Bld) [Ratio] 0 % 0-5 [facility] Platelet countOrdered By: St yury Garcia on 09-03-2024 Platelets (Bld) [#/Vol] 219 10*3/uL 150-450 [facility] Potassium measurementOrdered By: Kenya Garcia on 09-03-2024 Potassium [Moles/Vol] 3.2 mmol/L Low 3.5-5.1 [facility] RBC Auto (Bld) [#/Vol]Ordere d By: Kenya Garcia on 09-03-2024 RBC (Bld) [#/Vol] 3.76 10*6/uL Low 4.2-5.4 [facility] Serum anion gap measurementO rdered By: Kenya Garcia on 09-03-2024 Anion gap [Moles/Vol] 7 mmol/L 5-15 [facility] Serum or plasma calcium alexis urement (mass/volume)Ordered By: Kenya Garcia on 09-03-2024 Calcium [Mass/Vol] 8.2 mg/dL Low 8.5-10.1 [facility] Serum or plasma creatinine m easurement (mass/volume)Ordered By: Kenya Garcia on 09-03-2024 Creatinine [Mass/Vol] 0.50 mg/dL Low 0.55-1.02 [facility] Comment on above: The validity of the calculated GFR & GFRAA in patients over 70 years has not been determined. Clinical correlation is essential. Serum or plasma urea nitroge n measurement (mass/volume)Ordered By: Kenya Garcia on 09-03-2024 Urea nitrogen [Mass/Vol] 8 mg/dL 7-18 [facility] Sodium levelOrdered By: Swapnil paez Riveraalfredo on 09-03-2024 Sodium [Moles/Vol] 133 mmol/L Low 136-145 [facility] White blood cell (WBC) count Ordered By: Kenya Riveraalfredo on 09-03-2024 WBC (Bld) [#/Vol] 8.1 10*3/uL 4.4-11.0 [facility] Abdomen/Pelvis W IV Cont ONL Yon 09-02-2024 Abdomen/Pelvis W IV Cont ONLY [facility] Imaging Services [address] [place] [address] Abdomen/Pelvis W IV Cont ONLY MR#: [id number] Acct: [id number] Name: MARIMAR WANG Rep #: [id number] : 1960 F 64 From: Pablo Mendoza MD PCP: Julio Arriaga NP-C Status: REG ER Study: Abdomen/Pelvis W IV Cont ONLY Date of Exam: Exam# [id number] Ordering Dr: Sonia Germain DO PROCEDURE: ABDOMEN/PELVIS [...] use of iterative reconstruction technique). Reading Location: [facility] CC: SINAI Arriaga; Dr. Sonia Germain DO Pre Owned Sales Manager: Signed Normal [facility] Albumin to globulin ratioOrd ered By: Sonia Germain on 09-02-2024 Albumin/Globulin [Mass ratio] 0.7 {ratio} Low 0.9-2.4 [facility] Bilirubin Test strip Ql (U)O rdered By: Sonia Germain on 09-02-2024 Bilirubin Ql (U) Negative Negative [facility] Bilirubin, totalOrdered By: Sonia Germain on 09-02-2024 Bilirubin [Mass/Vol] 0.30 mg/dL 0.20-1.00 [facility] Comment on above: For patients on eltr ombopag therapy, use of Dimension [place] TBIL is not recommended. CBC W/Diff, Automatedon Absolute Lymph 0.64 X10 3/uL Low 0.83-4.51 [facility] Comment on above: Performed By: #### L 499.0042 #### [facility] Laboratory [address] [place], [address] Absolute Neut 9.5 X10 3/uL High 2.0-7.7 [facility] Comment on above: Performed By: #### L 499.0042 #### [facility] [address] [place], [address] Basophils/100 WBC (Bld) 0.8 % Normal 0-1 [facility] Comment on above: Performed By: #### L 499.0042 #### [facility] [address] [place], [address] Eosinophils/100 WBC (Bld) 0.4 % Normal 0-5 [facility] Comment on above: Performed By: #### L 499.0042 #### [facility] [address] [place], [address] Erythrocyte distribution width (RBC) [Ratio] 17.3 % High 11.6-14.6 [facility] Comment on above: Performed By: #### L 499.0042 #### [facility] [address] [place], [address] Hematocrit (Bld) [Volume fraction] 34.1 % Low 37-47 [facility] Comment on above: Performed By: #### L 499.0042 #### [facility] [address] [place], [address] Hemoglobin (Bld) [Mass/Vol] 10.4 g/dL Low 12.0-15.0 [facility] Comment on above: Performed By: #### L 499.0042 #### [facility] [address] [place], [address] IG% 0.600 Normal 0.0-0.9 [facility] Comment on above: Result Comment: IG% - Immature Granulocytes (promyelocytes, myelocytes and metamyelocytes) > 1% indicates that a LEFT SHIFT is Present. Performed By: #### L 499.0042 #### [facility] [address] [place], [address] Lymphocytes/100 WBC (Bld) 5.7 % Low 19-41 [facility] Comment on above: Performed By: #### L 499.0042 #### [facility] [address] [place], [address] MCH (RBC) [Entitic mass] 25.7 pg Low 27.0-32.0 [facility] Comment on above: Performed By: #### L 499.0042 #### [facility] [address] [place], [address] MCHC (RBC) [Mass/Vol] 30.5 g/dL Low 32-36 [facility] Comment on above: Performed By: #### L 499.0042 #### [facility] [address] [place], [address] MCV (RBC) [Entitic vol] 84.4 fL Normal 81-99 [facility] Comment on above: Performed By: #### L 499.0042 #### [facility] [address] [place], [address] Monocytes/100 WBC (Bld) 8.7 % Normal 0-10 [facility] Comment on above: Performed By: #### L 499.0042 #### [facility] [address] [place], [address] Neutrophils/100 WBC (Bld) 83.8 % High 47-70 [facility] Comment on above: Performed By: #### L 499.0042 #### [facility] [address] [place], [address] Nucleated RBC (Bld) [#/Vol] 0 10*3/uL Normal 0-5 [facility] Comment on above: Performed By: #### L 499.0042 #### [facility] [address] [place], [address] Platelet mean volume (Bld) [Entitic vol] 11.0 fL Normal 6.2-12.0 [facility] Comment on above: Performed By: #### L 499.0042 #### [facility] [address] [place], [address] Platelets (Bld) [#/Vol] 247 10*3/uL Normal 150-450 [facility] Comment on above: Performed By: #### L 499.0042 #### [facility] [address] [place], [address] RBC (Bld) [#/Vol] 4.04 10*6/uL Low 4.2-5.4 [facility] Comment on above: Performed By: #### L 499.0042 #### [facility] [address] [place], [address] RDW SD 53.5 fl High 35.1-43.9 [facility] Comment on above: Performed By: #### L 499.0042 #### [facility] [address] [place], [place], [address] WBC (Bld) [#/Vol] 11.3 10*3/uL High 4.4-11.0 [facility] Comment on above: Performed By: #### L 499.0042 #### [facility] Laboratory [address] [place], [address] CNOVon 09-02-2024 CNOV Normal [facility] Chest PA and Lateralon 09-02 Chest PA and Lateral [facility] Imaging Services [address] [place], [place] [address] Chest PA and Lateral MR#: [id number] Acct: [id number] Name: MARIMAR WANG Rep #: [id number] : 1960 F 64 From: Joan Dow MD PCP: Julio Arriaga NP-C Status: [facility] Study: Chest PA and Lateral Date of Exam: 09/02/24 Exam# [id number] Ordering Dr: Sonia Germain DO EXAM: XR Chest, 2 Views CLINICAL INDICATION: TECHNIQUE: Frontal and lateral views of the chest. COMPARISON: No relevant prior studies available. FINDINGS: LUNGS AND PLEURAL SPACES: Unremarkable. No consolidation. No pneumothorax. HEART: Unremarkable. No cardiomegaly. MEDIASTINUM: Unremarkable. Normal mediastinal contour. BONES/JOINTS: Unremarkable. No acute fracture. RAD/Chest PA and Lateral IMPRESSION: No acute cardiopulmonary process. Reading Location: [facility] CC: [employer]-C Julio Arriaga; Dr. Sonia Germain DO Pre Owned Sales Manager: Signed Normal [facility] Comprehensive Metabolic Prof ilon 09-02-2024 Albumin [Mass/Vol] 2.7 g/dL Low 3.2-5.0 [facility] Comment on above: Performed By: #### L 499.0042 #### [facility] Laboratory [address] [place], [address] Albumin/Globulin [Mass ratio] 0.7 {ratio} Low 0.9-2.4 [facility] Comment on above: Performed By: #### L 499.0042 #### [facility] [address] [place], [address] ALK P 87 U/L Normal 45-117 [facility] Comment on above: Performed By: #### L 499.0042 #### [facility] [address] [place], [address] ALT [Catalytic activity/Vol] 17 U/L Normal 13-56 [facility] Comment on above: Performed By: #### L 499.0042 #### [facility] [address] [place], [address] AST [Catalytic activity/Vol] 18 U/L Normal 15-37 [facility] Comment on above: Performed By: #### L 499.0042 #### [facility] [address] [place], [address] Bilirubin [Mass/Vol] 0.30 mg/dL Normal 0.20-1.00 [facility] Comment on above: Result Comment: For patients on eltrombopag therapy, use of Dimension [place] TBIL is not recommended. Performed By: #### L 499.0042 #### [facility] [address] [place], [address] BUN/CRE 13.9 RATIO Normal 10-20 [facility] Comment on above: Performed By: #### L 499.0042 #### [facility] [address] [place], [address] CA,Total 8.7 mg/dL Normal 8.5-10.1 [facility] Comment on above: Performed By: #### L 499.0042 #### [facility] [address] [place], [address] Chloride [Moles/Vol] 102 mmol/L Normal 98-107 [facility] Comment on above: Performed By: #### L 499.0042 #### [facility] [address] [place], [address] CO2 [Moles/Vol] 24.0 mmol/L Normal 21.0-32.0 [facility] Comment on above: Performed By: #### L 499.0042 #### [facility] [address] [place], [address] Creatinine [Mass/Vol] 0.72 mg/dL Normal 0.55-1.02 [facility] Comment on above: Result Comment: The validity of the calculated GFR GFRAA in patients over 70 years has not been determined. Clinical correlation is essential. Performed By: #### L 499.0042 #### [facility] [address] [place], [address] ECRCL 74.18 ml/min Normal [facility] Comment on above: Performed By: #### L 499.0042 #### [facility] [address] [place], [address] EST GFR - AA 104 mL/min Normal >60 [facility] Comment on above: Result Comment: Afri can Mal[place]ian GFR Calc Performed By: #### L 499.0042 #### [facility] [address] [place], [address] GAP 9 Normal 5-15 [facility] Comment on above: Performed By: #### L 499.0042 #### [facility] [address] [place], [address] GFR/1.73 sq M.predicted among non-blacks MDRD (S/P/Bld) [Vol rate/Area] 86 mL/min/{1.73_m2} Normal >60 [facility] Comment on above: Result Comment: Non- GFR Calc Performed By: #### L 499.0042 #### [facility] [address] [place], [address] Globulin (S) [Mass/Vol] 4.0 g/dL Normal 2.2-4.2 [facility] Comment on above: Performed By: #### L 499.0042 #### [facility] [address] [place], [address] Glucose [Mass/Vol] 91 mg/dL Normal 74-106 [facility] Comment on above: Performed By: #### L 499.0042 #### [facility] [address] [place], [address] Potassium [Moles/Vol] 3.3 mmol/L Low 3.5-5.1 [facility] Comment on above: Performed By: #### L 499.0042 #### [facility] [address] [place], [address] Sodium [Moles/Vol] 134 mmol/L Low 136-145 [facility] Comment on above: Performed By: #### L 499.0042 #### [facility] [address] [place], [address] T PROT 6.7 g/dL Normal 6.4-8.2 [facility] Comment on above: Performed By: #### L 499.0042 #### [facility] [address] [place], [address] Urea nitrogen [Mass/Vol] 10 mg/dL Normal 7-18 [facility] Comment on above: Performed By: #### L 499.0042 #### [facility] [address] [place], [address] Emergency Department Summary on 09-02-2024 Emergency Department Summary [facility] Medical Records Department [address] [place] [address] Emergency Department Summary 09/02/24 MR#: [id number] Acct: [id number] Name: MARIMAR WANG Rep #: [id number] : 1960 64 From: Sonia Germain DO PCP: Julio Arriaga NP-Marga Status:ADM AMOR Location: MS3 [id number] History of Present Illness Chief Complaint: [...] complaints or concerns reported at this time. [facility] Medical History Mass of anus Perirectal [...] QHS MENTAL HEALTH 6 09/01/24 History peg 413-uuzapusvonsr-abqmtgb n 1 1 drp OP 4X/DAY DRY [...] Constipation Unknown History gram/dose oral powder (Miralax) iwlrhr-ciyylewy-pszovdi See Rx Instructions PO .COMPLEX 09/01/24 Rx 36,000-114,000-180,000 unit #300 caps capsule,delay rel (Creon) acetaminophen 500 mg tablet 1,000 mg PO Q6H PRN fever or pain 11/15/23 09/01/24 History atorvastatin 80 mg tablet 80 mg PO QHS 11/15/23 09/01/24 His tory hydrocortisone 2.5 % topical cream 1 applic KY BID PRN Crohn's 10/19 Unknown Rx with perineal applicator disease #30 grams meclizine 25 mg tablet 25 mg PO DAILY PRN PRN dizziness 0 03/17/24 Unknown History budesonide 3 mg 6 mg (2 x 3 mg) PO DAILY #60 caps 04/09/24 09/01/24 Rx capsule,delayed,extended release herron (more content not included)... Normal [facility] Epithelial cells.squamous LM Ql (Urine sed)Ordered By: Sonia Germain on 09-02-2024 Epithelial cells.squamous LM.HPF (Urine sed) [#/Area] 0 /[HPF] 5-10 [facility] Glucose Ql (U)Ordered By: Joshua Germain on 09-02-2024 Urine Glucose (UA) Normal mg/dl Normal [facility] Hyaline casts LM.LPF (Urine sed) [#/Area]Ordered By: Sonia Germain on 09-02-2024 Hyaline casts (Urine sed) [#/Area] 0 /[LPF] 0-5 [facility] Hyaline casts LM Ql (Urine sed) 0-5 SEEN /lpf 0-5 [facility] Influenza virus A and B and SARS-CoV-2 (COVID-19) and Respiratory syncytial virus RNAOrdered By: Sonia Germain on 09-02-2024 SARS-CoV-2 (COVID-19) RNA CORAL+probe Ql (Unsp spec) SARS-CoV-2 (COVID 19 PCR) Abnormal [facility] Ketones Test strip Ql (U)Ord ered By: Sonia Germain on 09-02-2024 Ketones Ql (U) Negative Negative [facility] Laboratory - Chemistry and C hemistry - challengeOrdered By: Sonia Germain on 09-02-2024 AST [Catalytic activity/Vol] 18 U/L 15-37 [facility] M100.678on 09-02-2024 M100.678 Copy of report sent to Infection Control Printer MS#[id number] 09/02/24 1313 JPARLET. FLUABV+SARS-CoV-2+RSV Pnl Resp CORAL+probe FLUABV+SARS-CoV-2+RSV Pnl Resp CORAL+probe SARS-CoV-2 (COVID 19) A Positive A INFLUENZA A Negative INFLUENZA B Negative RSV PCR Negative SARS-CoV-2 (COVID 19 PCR) [facility] Comment on above: Performed By: #### L 400.0001, M100.678 ####[facility] [id number] [facility] [place], [address] MR/POSTOP.ANE 09-02-2024 MR/POSTOP.[facility] Medical Records Department [address] [place] [address] Anesthesia Postop Eval I 09/02/24 1717 MR#: [id number] Acct: [id number] Name: MARIMAR WANG Rep #: [id number] : 1960 64 From: Stas Young MD PCP: Julio Arriaga [employer]-C Status:DIS AMOR Y Race: C Location: [place] [address] Anesthesia: Postop Eval I Current Vital Signs [...] Signature: Date Luke Hearn CRNA CC: Signed [facility] Microscopic analysis of urin e for red blood cells (RBC)Ordered By: Sonia Germain on 09-02-2024 Microscopic analysis of urine for red blood cells (RBC) 0 SEEN /hpf 0-5 [facility] Urine RBC 0 SEEN /hpf 0-5 [facility] Mucus LM Ql (Urine sed)Order ed By: Sonia Germain on 09-02-2024 Mucus Ql (Urine sed) 0 SEEN /hpf [facility] Nitrite Test strip Ql (U)Ord ered By: Sonia Germain on 09-02-2024 Nitrite Ql (U) Negative Negative [facility] Operative Reporton Operative Report [facility] Medical Records Department [address] [place] [address] Operative Report 09/02/24 1723 MR#: [id number] Acct: [id number] Name: MARIMAR WANG Rep #: [id number] : 1960 64 From: Kenya Garcia MD PCP: SINAI Arriola Status:ADM AMOR Location: [place] [id number] Problems Associated Problem List Diagnoses (1) Perirectal abscess: (2) Mass of anus: Multi Select Codes Digestive Digestive CPT Codes: 53052 Incision of rectal [place] [address] Anoscopy and biopsy Operative Report (Standard) Operative Information Date of Procedure: 09/02/24 Pre-Operative Diagnosis: Right-sided perirectal abscess Post-Operative Diagnosis: Suspect perianal mass with associated fluid collection/abscess Surgery/Procedure Performed: 1. Incision and drainage of perirectal abscess/fluid collection 2. Biopsy of perianal mass product mgr: No Type of Anesthesia: Local and MAC [...] female who presented earlier today to the [place] emergency department with complaints of perianal pain [...] to have a perianal mass. This extended [facility] external to the anal verge and seemed [...] prophylaxis not ordered: Treatment Not Indicated 09/02/24 6247 Cosigner Signature (if applicable): CC: SINAI Arriaga; Dr. Kenya Garcia MD Signed Normal [facility] Protein Test strip Ql (U)Ord ered By: Sonia Germain on 09-02-2024 Protein Ql (U) 30 mg/dl High Negative [facility] Serum globulin measurementOr dered By: Sonia Germain on 09-02-2024 Globulin (S) [Mass/Vol] 4.0 g/dL 2.2-4.2 [facility] Serum or plasma alanine aalrcon otransferase (ALT) measurementOrdered By: Sonia Germain on 09-02-2024 ALT [Catalytic activity/Vol] 17 U/L 13-56 [facility] Serum or plasma albumin alexis urement (mass/volume)Ordered By: Sonia Germain on 09-02-2024 Albumin [Mass/Vol] 2.7 g/dL Low 3.2-5.0 [facility] Serum or plasma alkaline [place] sphatase measurementOrdered By: Sonia Germain on 09-02-2024 ALP [Catalytic activity/Vol] 87 U/L 45-117 [facility] Squamous epithelial cells de tection in urine sediment by light microscopyOrdered By: Sonia Germain on 09-02-2024 Epithelial cells.squamous LM Ql (Urine sed) 0-5 SEEN /hpf 5-10 [facility] Surgery Specimen Level Nubia 09-02-2024 Surgery Specimen Level IV Patient Age/Sex Location Account Attending Physician MARIMAR WANG 64/F [place]3 [id number] Dr. Kenya Garcia MD Specimen: [id number] Received: 09/02/24 Status: SAMREEN Aparicio Num: [id number] Spec Type: Mass Subm Dr: Dr. 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 See comment. 09/04/2024 COMMENT Immunohistochemistry ([id number]) for surrogate HPV marker (p16) will be [...] is submitted in one cassette. 09/03/2024 TC:0 CPT:88371 Patient Age/Sex Location Account Attending Physician MARIMAR WANG 64/F MS3 [id number] Dr. Kenya Garcia MD Signed (signature on file) Dr. Fred Gonzales MD 09/04/24 1212 [facility] Comment on above: Performed By: #### P IRMA ####[facility] [address] [place], [address] Total proteinOrdered By: Ariane Germain on 09-02-2024 Protein [Mass/Vol] 6.7 g/dL 6.4-8.2 [facility] Urate crystals LM.HPF (Urine sed) [#/Area]Ordered By: Sonia Germain on 09-02-2024 Urine Uric Acid Crystals 1+ /hpf [facility] Urinalysis, Completeon 09-02 URIC CRYSTALS 1+ /hpf Normal [facility] Comment on above: Order Comment: CLEAN CATCH Performed By: #### L 400.0001, M100.678 ####[facility] [address] [place], [address] CAST,HYALINE 0-5 SEEN Normal 0-5 [facility] Comment on above: Order Comment: CLEAN CATCH Performed By: #### L 400.0001, M1 ####[facility] [address] [place], [address] EPI,SQUAMOUS 0-5 SEEN Normal 5-10 [facility] Comment on above: Order Comment: CLEAN CATCH Performed By: #### L 400.0001, M100.8 ####[facility] [address] [place], [address] WBC 0-5 SEEN Normal 0-5 [facility] Comment on above: Order Comment: CLEAN CATCH Performed By: #### L 400.0001, M18 ####[facility] [address] [place], [address] BACTERIA 0 SEEN Normal None Seen [facility] [facility] Comment on above: Order Comment: CLEAN CATCH Performed By: #### L 400.0001, [id number] ####[facility] [address] [place], [address] Mucus Ql (Urine sed) 0 SEEN Normal [facility] Comment on above: Order Comment: CLEAN CATCH Performed By: #### L 400.0001, M100.678 ####[facility] [address] [place], [place], [address] RBC 0 SEEN Normal 0-5 [facility] Comment on above: Order Comment: CLEAN CATCH Performed By: #### L 400.0001, M100.678 ####[facility] [address] [place], [place], [address] Urine blood detectionOrdered By: Sonia Germain on 09-02-2024 Urine Occult Blood Negative Negative [facility] Urine clarityOrdered By: Ariane Germain on 09-02-2024 Clarity (U) Clear Clear [facility] Urine color determinationOrd ered By: Sonia Germain on 09-02-2024 Color (U) Yellow Yellow [facility] Urine glucose detectionOrder ed By: Sonia Germain on 09-02-2024 Glucose Ql (U) Normal mg/dl Normal [facility] Urine leukocyte esterase det ection by dipstickOrdered By: Sonia Germain on 09-02-2024 Leukocyte esterase Test strip Ql (U) 25 /ul High Negative [facility] Urine pHOrdered By: Sonia corbett on 09-02-2024 pH (U) 6.0 [pH] 5.0 - 8.0 [facility] Urine sediment bacteria coun t by microscopy (number/high power field)Ordered By: Sonia Germain on 09-02-2024 Bacteria LM.HPF (Urine sed) [#/Area] 0 /[HPF] None Seen [facility] Urine sediment uric acid cry stal count by microscopy (number/high power field)Ordered By: Sonia Germain on 09-02-2024 Urate crystals LM.HPF (Urine sed) [#/Area] 1 /[HPF] [facility] Urine specific gravity measu rementOrdered By: Sonia Germain on 09-02-2024 Specific gravity (U) [Rel density] 1.015 1.002-1.030 [facility] Urine urobilinogen measureme ntOrdered By: Sonia Germain on 09-02-2024 Urobilinogen Ql (U) 1 mg/dl High Normal [facility] Urobilinogen Ql (U)Ordered B y: Sonia Germain on 09-02-2024 Urobilinogen (U) [Mass/Vol] 1 mg/dL High Normal [facility] White blood cell countOrdere d By: Sonia Germain on 09-02-2024 Urine WBC 0-5 SEEN /hpf 0-5 [facility] White blood cell count 0-5 SEEN /hpf 0-5 [facility] p16 (initial)on 09-02-2024 p16 (initial) ---- Patient Age/Sex Location Account Attending Physician MARIMAR WANG 64/F MS3 [id number] Dr. Kenya Garcia MD Specimen: [id number] Received: 09/04/24 Status: SAMREEN Aparicio Num: [id number] Spec Type: IMMUNO Subm Dr: Dr. Kenya Garcia MD [facility] [address] [address] SPECIMEN INFORMATION: Tissue Source: Perianal mass biopsy Clinical Info: Perirectal abscesses Specimen Number: [id number] CPT code: 39639,62082 METHODOLOGY: Deparaffinized sections of prefer/formalin-fixed tissue or [...] developed and their performance characteristics determined by [facility]. They may not have been [...] Dr. Fred Gonzales MD 09/07/24 1146 Normal [facility] Comment on above: Performed By: #### L 499.0042 #### [facility] [address] [place], [address] Gastroenterology Visit Repor ton 08-27-2024 Gastroenterology Visit Report [facility] Gastroenterology [address] [place] [address] OFFICE VISIT Date of Service: 08/27/24 MR#: [id number] Acct: [id number] Name: MARIMAR WANG Rep #: [id number] : 1960 Provider: Andrez Friend, DO Age/Sex: 64/F Location: [facility] Status: Signed Intake Vital Signs 03/20/24 12:59 [...] MENTAL HEALTH 10/2708/27/24 History extended release peg [id number]-sbpayjpcwjbd-wvpnrlp n 1 1 drp OP 4X/DAY DRY [...] Constipation 08/27/24 History gram/dose oral powder (Miralax) rohwyn-nvwacroe-zqgcpky See Rx Instructions PO .COMPLEX 08/27/24 Rx 36,000-114,000-180,000 unit #300 caps capsule,delay rel (Creon) acetaminophen 500 mg tablet 1,000 mg PO Q6H PRN fever or pain 11/15/23 08/27/24 History atorvastatin 80 mg tablet 80 mg PO QDAY 11/15/23 08/27/24 Hi story hydrocortisone 2.5 % topical cream 1 applic [place] BID PRN Crohn's 10/1908/27/24 Rx with perineal [...] Osteoporosis Con (more content not included)... Normal [facility] BD DXA - AXIAL SKELETONon BD DXA - AXIAL SKELETON Normal C [facility] CBC W Auto Differential pane l (Bld)on 08-20-2024 Basophils (Bld) [#/Vol] 0.10 10*3/uL Normal <0.11 [facility] Comment on above: Order Comment: Speci men Type: BLOOD SPECIMENOrdering Facility: [facility] Address: [address] [place] [address] Performed By: #### 5 7021-8 ####[facility] DORAL [id number] [place] [address] [place] Basophils/100 WBC (Bld) 1.1 % Normal C [facility] Comment on above: Order Comment: Speci men Type: BLOOD SPECIMENOrdering Facility: [facility] Address: [address] [place] [address] Performed By: #### 5 7021-8 ####[facility] DORAL [id number] [place] [address] [place] Differential cell count method Nom (Bld) Auto Normal [facility] Comment on above: Order Comment: Speci men Type: BLOOD SPECIMENOrdering Facility: [facility] Address: [address] [place] [address] Performed By: #### 5 7021-8 ####[facility] MARSHALTIFFANIFroy [id number] [place] [address] [place] Eosinophils (Bld) [#/Vol] 0.19 10*3/uL Normal <0.46 [facility] Comment on above: Order Comment: Speci men Type: BLOOD SPECIMENOrdering Facility: [facility] Address: [address] [place] [address] Performed By: #### 5 7021-8 ####[facility]ITALNICOLE [id number] [place] [address] [place] Eosinophils/100 WBC (Bld) 2.2 % Normal [facility] Comment on above: Order Comment: Speci men Type: BLOOD SPECIMENOrdering Facility: [facility] Address: [address] [place] [address] Performed By: #### 5 7021-8 ####[facility]OSPITALNCBALKE [id number] [place] [address] [place] Erythrocyte distribution width (RBC) [Ratio] 18.5 % High 11.5-15.0 [facility] Comment on above: Order Comment: Speci men Type: BLOOD SPECIMENOrdering Facility: [facility] Address: [address] [place] [address] Performed By: #### 5 7021-8 ####[facility] HOSPITALZEVLIA [id number] [place] [address] [place] Hematocrit (Bld) [Volume fraction] 38.2 % Normal 36.0-46.0 [facility] Comment on above: Order Comment: Speci men Type: BLOOD SPECIMENOrdering Facility: [facility] Address: [address] [place] [address] Performed By: #### 5 7021-8 ####[facility]ITALNCLIA [id number] [place] [address] [place] Hemoglobin (Bld) [Mass/Vol] 11.7 g/dL Normal 11.5-15.5 [facility] Comment on above: Order Comment: Speci men Type: BLOOD SPECIMENOrdering Facility: [facility] Address: [address] [place], [place] [address] Performed By: #### 5 7021-8 ####[facility]ITALA [id number] [place] [address] [place] Immature granulocytes (Bld) [#/Vol] 0.04 10*3/uL Normal <0.10 [facility] Comment on above: Order Comment: Speci men Type: BLOOD SPECIMENOrdering Facility: [facility] Address: [address] [place] [address] Performed By: #### 5 7021-8 ####[facility]ITALA [id number] [place] [address] [place] Immature granulocytes/100 WBC (Bld) 0.5 % Normal [facility] Comment on above: Order Comment: Speci men Type: BLOOD SPECIMENOrdering Facility: [facility] Address: [address] [place], [place] [address] Performed By: #### 5 7021-8 ####[facility]ITALA [id number] [place] [address] [place] Lymphocytes (Bld) [#/Vol] 1.22 10*3/uL Normal 1.00-4.00 [facility] Comment on above: Order Comment: Speci men Type: BLOOD SPECIMENOrdering Facility: [facility] Address: [address] [place], [place] [address] Performed By: #### 5 7021-8 ####[facility] HOSPITALLI [id number] [place] [address] [place] Lymphocytes/100 WBC (Bld) 13.9 % Normal [facility] Comment on above: Order Comment: Speci men Type: BLOOD SPECIMENOrdering Facility: [facility] Address: [address] [place] [address] Performed By: #### 5 7021-8 ####[facility]PITALZEVSEVIER VAL[facility] [id number] [place] [address] [place] MCH (RBC) [Entitic mass] 25.2 pg Low 26.0-34.0 [facility] Comment on above: Order Comment: Speci men Type: BLOOD SPECIMENOrdering Facility: [facility] Address: [address] [place] [address] Performed By: #### 5 7021-8 ####[facility]ITALZEVSEVIER VALLEY [facility]ITAL [id number] [place] [address] [place] MCHC (RBC) [Mass/Vol] 30.6 g/dL Normal 30.5-36.0 [facility] Comment on above: Order Comment: Speci men Type: BLOOD SPECIMENOrdering Facility: [facility] Address: [address] [place] [address] Performed By: #### 5 7021-8 ####[facility] DORAL [id number] [place] [address] [place] MCV (RBC) [Entitic vol] 82.2 fL Normal 80.0-100.0 C [facility] Comment on above: Order Comment: Speci men Type: BLOOD SPECIMENOrdering Facility: [facility] Address: [address] [place] [address] Performed By: #### 5 7021-8 ####[facility] HOSPITALNCLI [id number] [place] [address] [place] Monocytes (Bld) [#/Vol] 0.84 10*3/uL Normal <0.87 [facility] Comment on above: Order Comment: Speci men Type: BLOOD SPECIMENOrdering Facility: [facility] Address: [address] [place] [address] Performed By: #### 5 7021-8 ####[facility] HOSPITALNCLIA [id number] [place] [address] [place] Monocytes/100 WBC (Bld) 9.6 % Normal [facility] Comment on above: Order Comment: Speci men Type: BLOOD SPECIMENOrdering Facility: [facility] Address: [address] [place] [address] Performed By: #### 5 7021-8 ####[facility] HOSPITALNCA [id number] [place] [address] [place] Neutrophils (Bld) [#/Vol] 6.37 10*3/uL Normal 1.45-7.50 [facility] Comment on above: Order Comment: Speci men Type: BLOOD SPECIMENOrdering Facility: [facility] Address: [address] [place] [address] Performed By: #### 5 7021-8 ####[facility]ITALA [id number] [place] [address] [place] Neutrophils/100 WBC (Bld) 72.7 % Normal [facility] Comment on above: Order Comment: Speci men Type: BLOOD SPECIMENOrdering Facility: [facility] Address: [address] [place] [address] Performed By: #### 5 7021-8 ####[facility] HOSPITALLIA [id number] [place] [address] [place] Nucleated RBC (Bld) [#/Vol] 10*3/uL Normal <0.01 [facility] Comment on above: Order Comment: Speci men Type: BLOOD SPECIMENOrdering Facility: [facility] Address: [address] [place] [address] Performed By: #### 5 7021-8 ####[facility] MILLWNCLIA [id number] [place] [address] [place] Nucleated RBC/100 WBC (Bld) [Ratio] 0.0 /100 WBC Normal [facility] Comment on above: Order Comment: Speci men Type: BLOOD SPECIMENOrdering Facility: [facility] Address: [address] [place] [address] Performed By: #### 5 7021-8 ####[facility]OSPITALZEVLIA [id number] [place] [address] [place] Platelet mean volume (Bld) [Entitic vol] 10.9 fL Normal 9.0-12.7 [facility] Comment on above: Order Comment: Speci men Type: BLOOD SPECIMENOrdering Facility: [facility] Address: [address] [place] [address] Performed By: #### 5 7021-8 ####[facility]PITALA [id number] [place] [address] [place] Platelets (Bld) [#/Vol] 263 10*3/uL Normal 150-400 [facility] Comment on above: Order Comment: Speci men Type: BLOOD SPECIMENOrdering Facility: [facility] Address: [address] [place] [address] Performed By: #### 5 7021-8 ####[facility] HOSPITALLIA [id number] [place] [address] [place] RBC (Bld) [#/Vol] 4.65 10*6/uL Normal 3.90-5.20 [facility] Comment on above: Order Comment: Speci men Type: BLOOD SPECIMENOrdering Facility: [facility] Address: [address] [place] [address] Performed By: #### 5 7021-8 ####[facility] HOSPITALLIA [id number] [place] [address] [place] WBC (Bld) [#/Vol] 8.76 10*3/uL Normal 3.70-11.00 [facility] Comment on above: Order Comment: Speci men Type: BLOOD SPECIMENOrdering Facility: [facility] Address: [address] [place] [address] Performed By: #### 5 7021-8 ####[facility] RIGOBERTO [facility]IAL HOSPITALA [id number] [place] [address] [place] Ferritin SerPl-ncon 2024 Ferritin [Mass/Vol] 117.0 ng/mL Normal 14.7-205.1 [facility] Comment on above: Order Comment: Speci men Type: BLOOD SPECIMENOrdering Facility: [facility] Address: [address] [place] [address] Performed By: #### 2 276-4, 64395-9 ####[facility] LABCLIA [id number] [place] [address] [place] Iron and Iron binding capaci ty panelon 08-20-2024 Iron [Mass/Vol] 21 ug/dL Low 41-186 [facility] Comment on above: Order Comment: Speci men Type: BLOOD SPECIMENOrdering Facility: [facility] Address: [address] [place] [address] Performed By: #### 2 276-4, 49615-8 ####[facility] LABCLIA [id number] [place] [address] [place] Iron binding capacity [Mass/Vol] 281 ug/dL Normal 232-386 [facility] Comment on above: Order Comment: Speci men Type: BLOOD SPECIMENOrdering Facility: [facility] Address: [address] [place] [address] Performed By: #### 2 276-4, 76120-1 ####[facility] LABCLIA [id number] [place] [address] [place] Iron/TIBC [Molar ratio] 7.5 % Low 15.0-57.0 C [facility] Comment on above: Order Comment: Speci men Type: BLOOD SPECIMENOrdering Facility: [facility] Address: [address] [place] [address] Performed By: #### 2 276-4, 35926-3 ####[facility] LABCLIA [id number] [place] [id number] [place] CNPNon 08-17-2024 CNPN Normal [facility] RPR [CCL]on 06-30-2024 Reagin Ab RPR Ql (S) Non-Reactive Normal Nonreactive J l [facility] Comment on above: Result Comment: Rapi d plasma reagin (RPR) test detects non-treponemal antibodies. RPR may be reactive in a variety of infectious and non-infectious conditions. Correlation with clinical picture and with treponemal antibody results is [place] [address] Bladimir Jean-Baptiste III, M.D. [id number] Performed By: #### 2 [address]57 #### [place] [id number] FOLATESon 06-29-2024 FOLATES 8.7 ng/ml Normal 8.6 - 58.9 [facility] Comment on above: Performed By: #### 2 25431 #### [facility],[address] [place], [place] [address] RPR Ser Qlon 06-29-2024 Reagin Ab RPR Ql (S) Non-Reactive Normal Nonreactive C [facility] Comment on above: Order Comment: Speci men Type: BLOOD SPECIMENOrdering Facility: [facility] Address: [address] [place], [place] [address] Result Comment: Rapi d plasma reagin (RPR) test detects non-treponemal antibodies. RPR may be reactive in a variety of infectious and non-infectious conditions. Correlation with clinical picture and with treponemal antibody results is required for final interpretation. Performed By: #### 2 0507-0 ####[facility] LABANY [id number] [place] [id number] [place] Jeremy 06-16-2024 CNPN Telephone (RHBATH) -------- MARIMAR WANG ([id number]) 1960 F Date Time Provider Department 06/16/24 JENNIFER ARIAS RHBATH During your visit today, we recorded the following information about you: Rosio Buck LPN 06/16/2024 12:37 PM Signed Patient asking if she can have her Orencia infusions at [facility] at Hematology Oncology. Patient does not [...] that the authorization/orders could be flipped to Doran and there shouldn't be an issue with [...] no further action needed. Infusions completed at [facility] as scheduled on 06/18/2024. Rosio Buck [...] 80 mg by mouth once daily. - gmembc-rnhrixco-qjpgona (CREON 36) 36,000-114,000- 180,000 unit delayed release [...] Comments as of 02/06/2017: Herlinda use pharmacy [facility] [place] [address] Problem List As Of Date 06/16/2024 Noted Resolved Fractur (more content not included)... Normal [facility] CNPN Normal [facility] CBC W Auto Differential pane l (Bld)on 06-15-2024 Basophils (Bld) [#/Vol] 0.10 10*3/uL [facility] Basophils/100 WBC (Bld) 1.3 % C [facility] Differential cell count method Nom (Bld) Auto [facility] Eosinophils (Bld) [#/Vol] 0.16 10*3/uL [facility] Eosinophils/100 WBC (Bld) 2.1 % [facility] Erythrocyte distribution width (RBC) [Ratio] 16.7 % High 11.5 - 15.0 % [facility] Hematocrit (Bld) [Volume fraction] 32.8 % Low 36.0 - 46.0 % [facility] Hemoglobin (Bld) [Mass/Vol] 9.9 g/dL Low 11.5 - 15.5 g/dL [facility] Immature granulocytes (Bld) [#/Vol] [facility] Immature granulocytes/100 WBC (Bld) 0.3 % [facility] Interpretation and review of laboratory results Abnormal [facility] Lymphocytes (Bld) [#/Vol] 1.53 10*3/uL [facility] Lymphocytes/100 WBC (Bld) 20.0 % [facility] MCH (RBC) [Entitic mass] 23.8 pg Low 26.0 - 34.0 pg [facility] MCHC (RBC) [Mass/Vol] 30.2 g/dL Low 30.5 - 36.0 g/dL [facility] MCV (RBC) [Entitic vol] 78.8 fL Low 80.0 - 100.0 fL [facility] Monocytes (Bld) [#/Vol] 0.65 10*3/uL [facility] Monocytes/100 WBC (Bld) 8.5 % [facility] Neutrophils (Bld) [#/Vol] 5.19 10*3/uL [facility] Neutrophils/100 WBC (Bld) 67.8 % [facility] Nucleated RBC (Bld) [#/Vol] [facility] Nucleated RBC/100 WBC (Bld) [Ratio] 0.0 % /100 WBC [facility] Platelet mean volume (Bld) [Entitic vol] 11.4 fL 9.0 - 12.7 fL [facility] Platelets (Bld) [#/Vol] 248 10*3/uL [facility] RBC (Bld) [#/Vol] 4.16 10*6/uL 3.90 - 5.2 0 m/uL [facility] WBC (Bld) [#/Vol] 7.65 10*3/uL [facility] Basophils (Bld) [#/Vol] 0.10 10*3/uL Normal <0.11 [facility] Comment on above: Order Comment: Speci men Type: BLOOD SPECIMENOrdering Facility: [facility] Address: [address] [place] [address] Performed By: #### 5 7021-8 ####[facility] ALYSSAALEJANDRINALIA [id number] [place] [address] [place] Basophils/100 WBC (Bld) 1.3 % Normal [facility] Comment on above: Order Comment: Speci men Type: BLOOD SPECIMENOrdering Facility: [facility] Address: [address] [place] [address] Performed By: #### 5 7021-8 ####[facility] HOSPITALLIA [id number] [place] [address] [place] Differential cell count method Nom (Bld) Auto Normal [facility] Comment on above: Order Comment: Speci men Type: BLOOD SPECIMENOrdering Facility: [facility] Address: [address] [place] [address] Performed By: #### 5 7021-8 ####[facility] HOSPITALLIA [id number] [place] [address] [place] Eosinophils (Bld) [#/Vol] 0.16 10*3/uL Normal <0.46 [facility] Comment on above: Order Comment: Speci men Type: BLOOD SPECIMENOrdering Facility: [facility] Address: [address] [place] [address] Performed By: #### 5 7021-8 ####[facility] MILLWNCLIA [id number] [place] [address] [place] Eosinophils/100 WBC (Bld) 2.1 % Normal [facility] Comment on above: Order Comment: Speci men Type: BLOOD SPECIMENOrdering Facility: [facility] Address: [address] [place] [address] Performed By: #### 5 7021-8 ####[facility]ITALWNCLIA [id number] [place] [address] [place] Erythrocyte distribution width (RBC) [Ratio] 16.7 % High 11.5-15.0 [facility] Comment on above: Order Comment: Speci men Type: BLOOD SPECIMENOrdering Facility: [facility] Address: [address] [place] [address] Performed By: #### 5 7021-8 ####[facility]PITALZEVLIA [id number] [place] [address] [place] Hematocrit (Bld) [Volume fraction] 32.8 % Low 36.0-46.0 [facility] Comment on above: Order Comment: Speci men Type: BLOOD SPECIMENOrdering Facility: [facility] Address: [address] [place] [address] Performed By: #### 5 7021-8 ####[facility]ITALZEVLI [id number] [place] [address] [place] Hemoglobin (Bld) [Mass/Vol] 9.9 g/dL Low 11.5-15.5 [facility] Comment on above: Order Comment: Speci men Type: BLOOD SPECIMENOrdering Facility: [facility] Address: [address] [place] [address] Performed By: #### 5 7021-8 ####[facility] HOSPITALLIA [id number] [place] [address] [place] Immature granulocytes (Bld) [#/Vol] 10*3/uL Normal <0.10 [facility] Comment on above: Order Comment: Speci men Type: BLOOD SPECIMENOrdering Facility: [facility] Address: [address] [place] [address] Performed By: #### 5 7021-8 ####[facility]ITALNCLIA [id number] [place] [address] [place] Immature granulocytes/100 WBC (Bld) 0.3 % Normal [facility] Comment on above: Order Comment: Speci men Type: BLOOD SPECIMENOrdering Facility: [facility] Address: [address] [place] [address] Performed By: #### 5 7021-8 ####[facility]ITALNCSEVI[facility] [id number] [place] [address] [place] Lymphocytes (Bld) [#/Vol] 1.53 10*3/uL Normal 1.00-4.00 [facility] Comment on above: Order Comment: Speci men Type: BLOOD SPECIMENOrdering Facility: [facility] Address: [address] [place] [address] Performed By: #### 5 7021-8 ####[facility] DORAL [id number] [place] [address] [place] Lymphocytes/100 WBC (Bld) 20.0 % Normal [facility] Comment on above: Order Comment: Speci men Type: BLOOD SPECIMENOrdering Facility: [facility] Address: [address] [place] [address] Performed By: #### 5 7021-8 ####[facility] D[facility]AL [id number] [place] [address] [place] MCH (RBC) [Entitic mass] 23.8 pg Low 26.0-34.0 [facility] Comment on above: Order Comment: Speci men Type: BLOOD SPECIMENOrdering Facility: [facility] Address: [address] [place], [place] [address] Performed By: #### 5 7021-8 ####[facility] [id number] [place] [address] [place] MCHC (RBC) [Mass/Vol] 30.2 g/dL Low 30.5-36.0 [facility] Comment on above: Order Comment: Speci men Type: BLOOD SPECIMENOrdering Facility: [facility] Address: [address] [place] [address] Performed By: #### 5 7021-8 ####[facility] [id number] [place] [address] [place] MCV (RBC) [Entitic vol] 78.8 fL Low 80.0-100.0 C [facility] [place] Comment on above: Order Comment: Speci men Type: BLOOD SPECIMENOrdering Facility: [facility] Address: [address] [place] [address] Performed By: #### 5 7021-8 ####[facility] [id number] [place] [address] [place] Monocytes (Bld) [#/Vol] 0.65 10*3/uL Normal <0.87 [facility] Comment on above: Order Comment: Speci men Type: BLOOD SPECIMENOrdering Facility: [facility] Address: [address] [place] [address] Performed By: #### 5 7021-8 ####[facility]CA [id number] [place] [address] [place] Monocytes/100 WBC (Bld) 8.5 % Normal C [facility] [place] Comment on above: Order Comment: Speci men Type: BLOOD SPECIMENOrdering Facility: [facility] Address: [address] [place] [address] Performed By: #### 5 7021-8 ####[facility]ITALNCLIA [id number] [place] [address] [place] Neutrophils (Bld) [#/Vol] 5.19 10*3/uL Normal 1.45-7.50 [facility] Comment on above: Order Comment: Speci men Type: BLOOD SPECIMENOrdering Facility: [facility] Address: [address] [place] [address] Performed By: #### 5 7021-8 ####[facility] ALYSSAWZEVLIA [id number] [place] [address] [place] Neutrophils/100 WBC (Bld) 67.8 % Normal [facility] Comment on above: Order Comment: Speci men Type: BLOOD SPECIMENOrdering Facility: [facility] Address: [address] [place] [address] Performed By: #### 5 7021-8 ####[facility]ITALZEVLIA [id number] [place] [address] [place] Nucleated RBC (Bld) [#/Vol] 10*3/uL Normal <0.01 [facility] Comment on above: Order Comment: Speci men Type: BLOOD SPECIMENOrdering Facility: [facility] Address: [address] [place] [address] Performed By: #### 5 7021-8 ####[facility] [id number] [place] [address] [place] Nucleated RBC/100 WBC (Bld) [Ratio] 0.0 /100 WBC Normal [facility] Comment on above: Order Comment: Speci men Type: BLOOD SPECIMENOrdering Facility: [facility] Address: [address] [place] [address] Performed By: #### 5 7021-8 ####[facility] HOSPITALTIFFANIA [id number] [place] [address] [place] Platelet mean volume (Bld) [Entitic vol] 11.4 fL Normal 9.0-12.7 [facility] Comment on above: Order Comment: Speci men Type: BLOOD SPECIMENOrdering Facility: [facility] Address: [address] [place] [address] Performed By: #### 5 7021-8 ####[facility] HOSPITALLIA [id number] [place] [address] [place] Platelets (Bld) [#/Vol] 248 10*3/uL Normal 150-400 [facility] Comment on above: Order Comment: Speci men Type: BLOOD SPECIMENOrdering Facility: [facility] Address: [address] [place] [address] Performed By: #### 5 7021-8 ####[facility]ITALNCA [id number] [place] [address] [place] RBC (Bld) [#/Vol] 4.16 10*6/uL Normal 3.90-5.20 [facility] Comment on above: Order Comment: Speci men Type: BLOOD SPECIMENOrdering Facility: [facility] Address: [address] [place] [address] Performed By: #### 5 7021-8 ####[facility]ITALNCA [id number] [place] [address] [place] WBC (Bld) [#/Vol] 7.65 10*3/uL Normal 3.70-11.00 [facility] Comment on above: Order Comment: Speci men Type: BLOOD SPECIMENOrdering Facility: [facility] Address: [address] [place] [address] Performed By: #### 5 7021-8 ####[facility] H[facility]ITALLIA [id number] [place] [address] [place] CNOVSPon 06-15-2024 CNOVSP Normal [facility] Ferritin SerPl-mCncon 2023 Ferritin [Mass/Vol] 20.9 ng/mL Normal 14.7-205.1 [facility] Comment on above: Order Comment: Speci men Type: BLOOD SPECIMENOrdering Facility: [facility] Address: [address] [place] [address] Performed By: #### 2 276-4, 55904-3 ####[facility] LABCLIA [id number] [place] [address] [place] Iron and Iron binding capaci ty panelon 06-15-2024 Iron [Mass/Vol] 19 ug/dL Low 41-186 [facility] Comment on above: Order Comment: Speci men Type: BLOOD SPECIMENOrdering Facility: [facility] Address: [address] [place] [address] Performed By: #### 2 276-4, 16980-4 ####[facility] LABCLIA [id number] [address] Iron binding capacity [Mass/Vol] 372 ug/dL Normal 232-386 [facility] Comment on above: Order Comment: Speci men Type: BLOOD SPECIMENOrdering Facility: [facility] Address: [address] [place] [address] Performed By: #### 2 276-4, 49492-9 ####[facility] LABCLIA [id number] [address] STATES OF [facility] Iron/TIBC [Molar ratio] 5.1 % Low 15.0-57.0 C [facility] Comment on above: Order Comment: Speci men Type: BLOOD SPECIMENOrdering Facility: [facility] Address: [address] [place] [address] Performed By: #### 2 276-4, 90603-7 ####[facility] LABIA [id number] [place] [address] [place] Chest PA and Lateralon 06-09 Chest PA and Lateral [facility] Services [address] [place], [place] [address] Chest PA and Lateral MR#: [id number] Acct: [id number] Name: MARIMAR WNAG Rep #: [id number] : 1960 F 64 From: Edgard Flores DO PCP: SINAI Arriola Status: REG CLI Study: Chest PA and Lateral Date of Exam: 06/09/24 Exam# [id number] Ordering Dr: Julio Arriaga NP [employer] -C [id number] INDICATION: ABNORMAL CHEST XRAY EXAMINATION/TECHNIQUE: X-RAY - [...] 10:50 EST Reading Location ID and State: [facility] / [place] Tel [phone], Service support , CC: SINAI Arriaga Pre Owned Sales Manager: Signed Normal [facility] Brain/Head without Contrasto n 06-06-2024 Brain/Head without Contrast [facility] Imaging Services [address] [place] [address] Brain/Head without Contrast MR#: [id number] Acct: [id number] Name: MARIMAR WANG Rep #: [id number] : 1960 F 64 From: Gaudencio Riggs MD PCP: SINAI Arriola Status: REG ER Study: Brain/Head without Contrast Date of Exam: 04/21 Exam# [id number] Ordering Dr: Gaudencio Ambriz DO [id number] EXAM: CT HEAD WITHOUT INTRAVENOUS CONTRAST CLINICAL [...] , CC: SINAI Arriaga; Gaudencio Ambriz DO Pre Owned Sales Manager: Signed Normal [facility] Emergency Department Summary on 06-06-2024 Emergency Department Summary [facility] [address] [place] [address] Emergency Department Summary 06/06/24 MR#: [id number] Acct: [id number] Name: MARIMAR WANG Rep #: [id number] : 1960 64 From: Gaudencio Ambriz DO [...] underlying trauma was brought in for evaluation [facility] Medical History History of Crohn's disease [...] HEALTH 11/13/17 03/19/24 History extended release peg 827-xudnohcmbtoa-ubqlnki n 1 1 drp OP 4X/DAY DRY [...] 01/09/23 Unknown History gram/dose oral powder (Miralax) ktrkuh-zhcqmlrl-vrmgjmm See Rx Instructions PO .COMPLEX 09/25/23 03/19/24 Rx 36,000-114,000-180,000 unit #300 caps capsule,delay rel (Creon) acetaminophen 500 mg tablet 1,000 mg PO Q6H PRN fever or pain 11/15/23 Unknown History atorvastatin 80 mg tablet 80 mg PO QDAY 11/15/23 Unknown History hydrocortisone 2.5 % topical cream 1 applic [place] BID PRN Crohn's 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 Normal [facility] HIP, UNI W/ Pelvis 2-3 Views on 06-06-2024 HIP, UNI W/ Pelvis 2-3 Views [facility] Services [address] [place] [address] HIP, UNI W/ Pelvis 2-3 Views MR#: [id number] Acct: [id number] Name: MARIMAR WANG Rep #: [id number] : 1960 F 64 From: Gaudencio Riggs MD PCP: Julio Arriaga NP-C Status: REG ER Study: HIP, UNI W/ Pelvis 2-3 Views Date of Exam: 04/21 Exam# [id number] Ordering Dr: Gaudencio Ambriz DO [id number] EXAM: XR LEFT HIP WITH PELVIS WHEN [...] EST Reading Location ID and State: [facility] / [place] Tel , Service support , CC: [employer] Julio Arriaga; Gaudencio Ambriz DO Pre Owned Sales Manager: Signed Normal [facility] Hand Min 3 Viewson 4 Hand Min 3 Views [facility] [address] [place] [address] Hand Min 3 Views MR#: [id number] Acct: [id number] Name: MARIMAR WANG Rep #: [id number] : 1960 F 64 From: Gaudencio Riggs MD PCP: SINAI Arriola Status: REG ER Study: Hand Min 3 Views Date of Exam: 06/06/24 Exam# [id number] Ordering Dr: Gaudencio Ambriz DO [id number] EXAM: XR LEFT HAND COMPLETE, 3 OR [...] 4:21 EST Reading Location ID and State: [address] [place] [address] Tel , Service support , CC: SINAI Arriaga; Gaudencio Ambriz DO Pre Owned Sales Manager: Signed Normal [facility] Lumbar Spine 2 or 3 Viewson 06-06-2024 Lumbar Spine 2 or 3 Views [facility] Services [address] [place] [address] Lumbar Spine 2 or 3 Views MR#: [id number] Acct: [id number] Name: MARIMAR WANG Rep #: [id number] : 1960 F 64 From: Gaudencio Riggs MD PCP: SINAI Arriola Status: REG ER Study: Lumbar Spine 2 or 3 Views Date of Exam: Exam# [id number] Ordering Dr: Gaudencio Ambriz DO [id number] EXAM: XR LUMBOSACRAL SPINE, 2 OR 3 [...] , CC: SINAI Arriaga; Gaudencio Ambriz DO Pre Owned Sales Manager: Signed Normal [facility] Ribs Uni Min 3V w/PA Cheston 06-06-2024 Ribs Uni Min 3V w/PA Chest [facility] Services [address] [place] [address] Ribs Uni Min 3V w/PA Chest MR#: [id number] Acct: [id number] Name: MARIMAR WANG Rep #: [id number] : 1960 F 64 From: Karla Roberson PCP: SINAI Arriola Status: REG ER Study: Ribs Uni Min 3V w/PA Chest Date of Exam: 06/06 Exam# [id number] Ordering Dr: Gaudencio Ambriz DO [id number] INDICATION: pain EXAMINATION/TECHNIQUE: X-RAY - XR Ribs [...] 4:43 EST Reading Location ID and State: [facility] / [place] Tel , Service support , CC: [employer] Julio Arriaga; Gaudencio Ambriz DO Pre Owned Sales Manager: Signed Normal [facility] Spine Cervical without Contr ason 06-06-2024 Spine Cervical without Contras [facility] [address] [place] [address] Spine Cervical without Contras MR#: [id number] Acct: [id number] Name: MARIMAR WANG Rep #: [id number] : 1960 F 64 From: Gaudencio Riggs MD PCP: SINAI Arriola Status: REG ER Study: Spine Cervical without Contras Date of Exam: 08/06/23 Exam# [id number] Ordering Dr: Gaudencio Ambriz DO [id number] EXAM: CT CERVICAL SPINE WITHOUT INTRAVENOUS CONTRAST [...] EST Reading Location ID and State: [facility] / [place] Tel , Service support , CC: SINAI Arriaga; Gaudencio Ambriz DO Pre Owned Sales Manager: Signed Normal [facility] Thoracic Spine 3 Viewson Thoracic Spine 3 Views [facility] [address] [place] [address] Thoracic Spine 3 Views MR#: [id number] Acct: [id number] Name: MARIMAR WANG Rep #: [id number] : 1960 F 64 From: Gaudencio Riggs MD PCP: SINAI Arriola Status: REG ER Study: Thoracic Spine 3 Views Date of Exam: 06/06/24 Exam# [id number] Ordering Dr: Gaudencio Ambriz DO [id number] EXAM: XR THORACIC SPINE, 3 VIEWS CLINICAL [...] , CC: SINAI Arriaga; Gaudencio Ambriz DO Pre Owned Sales Manager: Signed [facility] 06-03-2024 [employer] Normal [facility] 05-29-2024 [employer] [facility] ([facility] ) -------- MARIMAR WANG ([id number]) 1960 F Date Time Provider Department 05/29/24 SARHA PEARSON During your visit today, we recorded [...] start taking at least 1 tablet daily pfls-qcf-glehjip. Her protein levels are also low, increase protein in diet. Sarah Pearson PA-C 05/29/24 Candace Alvarenga MA 05/29/2024 4:12 PM Signed Called patient and relayed message. She voiced understanding. Patient states she is unable to take Iron tablets. She states it causes vomiting. She states she received Iron IV through heme/onc in [facility] several years ago. Relayed protein enriched [...] [D50.9] Order(s):CONSULT TO HEMATOLOGY [9014] Order #: [id number]: 1 FUTURE Prescriptions as of 06/01/2024 - [...] 80 mg by mouth once daily. - xbvpds-qxndxxdj-alksspf (CREON 36) 36,000-114,000- 180,000 unit delayed release [...] Comments as of 02/06/2017: [facility] use pharmacy [facility] [place] [place] [address] Problem List As Of Date 05/29/2024 Noted Resolved Fracture of triquetrum of left wrist, closed [S* (more content not included)... Normal [facility] CBC W Auto Differential pane l (Bld)on 05-21-2024 Basophils (Bld) [#/Vol] 0.09 10*3/uL [facility] Basophils/100 WBC (Bld) 1.3 % C [facility] Differential cell count method Nom (Bld) Auto [facility] Eosinophils (Bld) [#/Vol] 0.19 10*3/uL [facility] Eosinophils/100 WBC (Bld) 2.8 % [facility] Erythrocyte distribution width (RBC) [Ratio] 17.1 % High 11.5 - 15.0 % [facility] Hematocrit (Bld) [Volume fraction] 33.5 % Low 36.0 - 46.0 % [facility] Hemoglobin (Bld) [Mass/Vol] 10.1 g/dL Low 11.5 - 15.5 g/dL [facility] Immature granulocytes (Bld) [#/Vol] 0.03 10*3/uL [facility] Immature granulocytes/100 WBC (Bld) 0.4 % [facility] Interpretation and review of laboratory results Abnormal [facility] Lymphocytes (Bld) [#/Vol] 1.23 10*3/uL [facility] Lymphocytes/100 WBC (Bld) 18.2 % [facility] MCH (RBC) [Entitic mass] 24.5 pg Low 26.0 - 34.0 pg [facility] MCHC (RBC) [Mass/Vol] 30.1 g/dL Low 30.5 - 36.0 g/dL [facility] MCV (RBC) [Entitic vol] 81.3 fL 80.0 - 100.0 fL [facility] Monocytes (Bld) [#/Vol] 0.46 10*3/uL [facility] Monocytes/100 WBC (Bld) 6.8 % C [facility] Neutrophils (Bld) [#/Vol] 4.75 10*3/uL [facility] Neutrophils/100 WBC (Bld) 70.5 % [facility] Nucleated RBC (Bld) [#/Vol] [facility] Nucleated RBC/100 WBC (Bld) [Ratio] 0.0 % /100 WBC [facility] Platelet mean volume (Bld) [Entitic vol] 12.3 fL 9.0 - 12.7 fL [facility] Platelets (Bld) [#/Vol] 240 10*3/uL [facility] RBC (Bld) [#/Vol] 4.12 10*6/uL 3.90 - 5.2 0 m/uL [facility] WBC (Bld) [#/Vol] 6.75 10*3/uL [facility] Basophils (Bld) [#/Vol] 0.09 10*3/uL Normal <0.11 [facility] Comment on above: Order Comment: Speci men Type: BLOOD SPECIMEN [facility] Address: [address] [place] [address] Performed By: #### 5 7021-8 #### [facility] CLIA [id number] [address] Basophils/100 WBC (Bld) 1.3 % Normal [facility] Comment on above: Order Comment: Speci men Type: BLOOD SPECIMEN [facility] Address: [address] [place] [address] Performed By: #### 5 7021-8 #### [facility] CLIA [id number] [address] OF [facility] Differential cell count method Nom (Bld) Auto Normal [facility] Comment on above: Order Comment: Speci men Type: BLOOD SPECIMEN [facility] Address: [address] [place] [address] Performed By: #### 5 7021-8 #### [facility] CLIA [id number] [address] [place] Eosinophils (Bld) [#/Vol] 0.19 10*3/uL Normal <0.46 [facility] Comment on above: Order Comment: Speci men Type: BLOOD SPECIMEN [facility] Address: [facility] [place] [address] Performed By: #### 5 7021-8 #### [facility] CLIA [id number] [address] [place] Eosinophils/100 WBC (Bld) 2.8 % Normal [facility] Comment on above: Order Comment: Speci men Type: BLOOD SPECIMEN [facility] Address: [address] [place] [address] Performed By: #### 5 7021-8 #### [facility] CLIA [id number] [address] [place] Erythrocyte distribution width (RBC) [Ratio] 17.1 % High 11.5-15.0 [facility] Comment on above: Order Comment: Speci men Type: BLOOD SPECIMEN [facility] Address: [facility] [place] [address] Performed By: #### 5 7021-8 #### [facility] CLIA [id number] [address] [place] Hematocrit (Bld) [Volume fraction] 33.5 % Low 36.0-46.0 [facility] Comment on above: Order Comment: Speci men Type: BLOOD SPECIMEN [facility] Address: [address] [place] [address] Performed By: #### 5 7021-8 #### [facility] CLIA [id number] [address] [place] Hemoglobin (Bld) [Mass/Vol] 10.1 g/dL Low 11.5-15.5 [facility] Comment on above: Order Comment: Speci men Type: BLOOD SPECIMEN [facility] Facility[facility] Address: [address] [place] [address] Performed By: #### 5 7021-8 #### [facility] CLIA [id number] [address] [place] Immature granulocytes (Bld) [#/Vol] 0.03 10*3/uL Normal <0.10 [facility] Comment on above: Order Comment: Speci men Type: BLOOD SPECIMEN [facility] Address: [address] [place] [address] Performed By: #### 5 7021-8 #### [facility] CLIA [id number] [address] [place] Immature granulocytes/100 WBC (Bld) 0.4 % Normal [facility] Comment on above: Order Comment: Speci men Type: BLOOD SPECIMEN [facility] Facility[facility] Address: [address] [place] [address] Performed By: #### 5 7021-8 #### [facility] CLIA [id number] 1 [place] [address] [place] Lymphocytes (Bld) [#/Vol] 1.23 10*3/uL Normal 1.00-4.00 [facility] Comment on above: Order Comment: Speci men Type: BLOOD SPECIMEN [facility] Facility[facility] Address: [address] [place] [address] Performed By: #### 5 7021-8 #### [facility] CLIA [id number] [address] STATES OF [facility] Lymphocytes/100 WBC (Bld) 18.2 % Normal [facility] Comment on above: Order Comment: Speci men Type: BLOOD SPECIMEN [facility]ing Facility: [facility] Address: [address] [place] [address] Performed By: #### 5 7021-8 #### [facility] CLIA [id number] [address] [place] MCH (RBC) [Entitic mass] 24.5 pg Low 26.0-34.0 [facility] Comment on above: Order Comment: Speci men Type: BLOOD SPECIMEN Ordering Facility: [facility] Address: [address] [place] [address] Performed By: #### 5 7021-8 #### [facility] CLIA [id number] [address] [place] MCHC (RBC) [Mass/Vol] 30.1 g/dL Low 30.5-36.0 [facility] Comment on above: Order Comment: Speci men Type: BLOOD SPECIMEN Ordering Facility: [facility] Address: [address] [place] [address] Performed By: #### 5 7021-8 #### [facility] CLIA [id number] [address] MCV (RBC) [Entitic vol] 81.3 fL Normal 80.0-100.[address] [facility] Comment on above: Order Comment: Speci men Type: BLOOD SPECIMEN Ordering Facility: [facility] Address: [address] [place] [address] Performed By: #### 5 7021-8 #### [facility] CLIA [id number] [address] [place] Monocytes (Bld) [#/Vol] 0.46 10*3/uL Normal <0.87 [facility] Comment on above: Order Comment: Speci men Type: BLOOD SPECIMEN Ordering Facility: [facility] Address: [address] [place] [address] Performed By: #### 5 7021-8 #### [facility] CLIA [id number] [address] Monocytes/100 WBC (Bld) 6.8 % Normal [facility] Comment on above: Order Comment: Speci men Type: BLOOD SPECIMEN Ordering Facility: [facility] Address: [address] [place] [address] Performed By: #### 5 7021-8 #### [facility] CLIA [id number] [address] Neutrophils (Bld) [#/Vol] 4.75 10*3/uL Normal 1.45-7.50 [facility] Comment on above: Order Comment: Speci men Type: BLOOD SPECIMEN Ordering Facility: [facility] Address: [address] [place] [address] Performed By: #### 5 7021-8 #### [facility] CLIA [id number] [address] [place] Neutrophils/100 WBC (Bld) 70.5 % Normal [facility] Comment on above: Order Comment: Speci men Type: BLOOD SPECIMEN Ordering Facility: [facility] Address: [address] [place] [address] Performed By: #### 5 7021-8 #### [facility] CLIA [id number] [address] [place] Nucleated RBC (Bld) [#/Vol] 10*3/uL Normal <0.01 [facility] Comment on above: Order Comment: Speci men Type: BLOOD SPECIMEN [facility]ing Facility[facility] Address: [address] [place] [address] Performed By: #### 5 7021-8 #### [facility] CLIA [id number] [address] [place] Nucleated RBC/100 WBC (Bld) [Ratio] 0.0 /100 WBC Normal [facility] Comment on above: Order Comment: Speci men Type: BLOOD SPECIMEN Ordering Facility: [facility] Address: [address] [place] [address] Performed By: #### 5 7021-8 #### [facility] CLIA [id number] [address] [place] Platelet mean volume (Bld) [Entitic vol] 12.3 fL Normal 9.0-12.7 [facility] Comment on above: Order Comment: Speci men Type: BLOOD SPECIMEN [facility]ing Facility: [facility] Address: [address] [place] [address] Performed By: #### 5 7021-8 #### [facility] CLIA [id number] [address] [place] Platelets (Bld) [#/Vol] 240 10*3/uL Normal 150-400 [facility] Comment on above: Order Comment: Speci men Type: BLOOD SPECIMEN Ordering Facility: [facility] Address: [address] [place] [address] Performed By: #### 5 7021-8 #### [facility] CLIA [id number] [address] [place] RBC (Bld) [#/Vol] 4.12 10*6/uL Normal 3.90-5.20 [facility] Comment on above: Order Comment: Speci men Type: BLOOD SPECIMEN Ordering Facility: [facility] Address: [address] [place] [address] Performed By: #### 5 7021-8 #### [facility] CLIA [id number] [address] WBC (Bld) [#/Vol] 6.75 10*3/uL Normal 3.70-11.00 [facility] Comment on above: Order Comment: Speci men Type: BLOOD SPECIMEN Ordering Facility: [facility] Address: [address] [place] [address] Performed By: #### 5 7021-8 #### [facility] CLIA [id number] [address] Comprehensive metabolic 2000 panelon 05-21-2024 Albumin [Mass/Vol] 3.7 g/dL Low 3.9-4.9 [facility] Comment on above: Order Comment: Speci men Type: BLOOD SPECIMEN Ordering Facility: [facility] Address: [address] [place] [address] Performed By: #### 2 4323-8 #### [facility] CLIA [id number] [address] ALP [Catalytic activity/Vol] 82 U/L Normal 34-123 [facility] Comment on above: Order Comment: Speci men Type: BLOOD SPECIMEN Ordering Facility: [facility] Address: [address] [place] [address] Performed By: #### 2 4323-8 #### [facility] CLIA [id number] [address] ALT With P-5'-P [Catalytic activity/Vol] 20 U/L Normal 7-38 [facility] Comment on above: Order Comment: Speci men Type: BLOOD SPECIMEN Ordering Facility: [facility] Address: [address] [place] [address] Performed By: #### 2 4323-8 #### [facility] CLIA [id number] [address] Anion gap [Moles/Vol] 11 mmol/L Normal 8-15 [facility] Comment on above: Order Comment: Speci men Type: BLOOD SPECIMEN Ordering Facility: [facility] Address: [address] [place] [address] Performed By: #### 2 4323-8 #### [facility] CLIA [id number] [address] STATES OF [facility] AST With P-5'-P [Catalytic activity/Vol] 21 U/L Normal 13-35 [facility] Comment on above: Order Comment: Speci men Type: BLOOD SPECIMEN Ordering Facility: [facility] Address: [address] [place] [address] Performed By: #### 2 4323-8 #### [facility] CLIA [id number] [address] STATES OF [facility] Bilirubin [Mass/Vol] mg/dL Low 0.2-1.3 [facility] Comment on above: Order Comment: Speci men Type: BLOOD SPECIMEN Ordering Facility: [facility] Address: [address] [place] [address] Performed By: #### 2 4323-8 #### [facility] CLIA [id number] [address] Calcium [Mass/Vol] 8.6 mg/dL Normal 8.5-10.2 [facility] Comment on above: Order Comment: Speci men Type: BLOOD SPECIMEN Ordering Facility: [facility] Address: [address] [place] [address] Performed By: #### 2 4323-8 #### [facility] CLIA [id number] [address] STATES [place] Chloride [Moles/Vol] 104 mmol/L Normal 98-107 [facility] Comment on above: Order Comment: Speci men Type: BLOOD SPECIMEN Ordering Facility: [facility] Address: [address] [place] [address] Performed By: #### 2 4323-8 #### [facility] CLIA [id number] [address] [place] CO2 [Moles/Vol] 22 mmol/L Normal 22-30 [facility] Comment on above: Order Comment: Speci men Type: BLOOD SPECIMEN Ordering Facility: [facility] Address: [address] [place] [address] Performed By: #### 2 4323-8 #### [facility] CLIA [id number] [address] Creatinine [Mass/Vol] 0.77 mg/dL Normal 0.58-0.96 [facility] Comment on above: Order Comment: Speci men Type: BLOOD SPECIMEN Ordering Facility: [facility] Address: [address] [place] [address] Performed By: #### 2 4323-8 #### [facility] CLIA [id number] [address] Creatinine and Glomerular filtration rate.predicted panel (S/P/Bld) 86 mL/min/1.73m??? Normal >=60 [facility] Comment on above: Order Comment: Speci men Type: BLOOD SPECIMEN Ordering Facility: [facility] Address: [address] [place] [address] Result Comment: Sonia mated Glomerular Filtration Rate [...] Performed By: #### 2 4323-8 #### [facility] CLIA [id number] [address] Glucose [Mass/Vol] 166 mg/dL High 74-99 [facility] Comment on above: Order Comment: Speci denys Type: BLOOD SPECIMEN Ordering Facility: [facility] Address: [address] [place] [address] Result Comment: The [place] Diabetes Association (ADA) provides guidance for cutoff [...] Standards of Medical Care in Diabetes 2016, [place] [employer]. Diabetes Care. 2016.39(Suppl 1). Performed By: #### 2 4323-8 #### [facility] CLIA [id number] [address] [place] Potassium [Moles/Vol] 4.3 mmol/L Normal 3.7-5.1 [facility] Comment on above: Order Comment: Speci men Type: BLOOD SPECIMEN Ordering Facility: [facility] Address: [address] [place] [address] Performed By: #### 2 432-8 #### [facility] CLIA [id number] 1 [place] [address] [place] Protein [Mass/Vol] 6.1 g/dL Low 6.3-8.0 [facility] Comment on above: Order Comment: Speci men Type: BLOOD SPECIMEN Ordering Facility: [facility] Address: [address] [place] [address] Performed By: #### 2 4323-8 #### [facility] CLIA [id number] 1 [place] [address] [place] Sodium [Moles/Vol] 137 mmol/L Normal 136-144 [facility] Comment on above: Order Comment: Speci men Type: BLOOD SPECIMEN Ordering Facility: [facility] Address: [address] [place] [address] Performed By: #### 2 4323-8 #### [facility] CLIA [id number] 1 [place] [address] [place] Urea nitrogen [Mass/Vol] 12 mg/dL Normal 7-21 [facility] Comment on above: Order Comment: Speci men Type: BLOOD SPECIMEN Ordering Facility: [facility] Address: [facility] [place] [id number] Performed By: #### 2 4323-8 #### [facility] CLIA [id number] 1 [place] [address] [place] Gastroenterology Visit Repor ton 04-27-2024 Gastroenterology Visit Report [facility] Gastroenterology [address] [place] [address] OFFICE VISIT Date of Service: 04/27/24 MR#: [id number] Acct: [id number] Name: MARIMAR WANG Rep #: [id number] : 1960 Provider: Andrez Pitts DO Age/Sex: 64/F Location: [facility] Status: Signed Intake Vital Signs 12/13/23 16:46 [...] HEALTH 11/13/17 04/27/24 History extended release peg 552-vombrbtnekka-kacpcsb n 1 1 drp OP 4X/DAY DRY [...] 01/09/23 04/27/24 History gram/dose oral powder (Miralax) jhatvy-yguzxqku-jjcvkac See Rx Instructions PO .COMPLEX 09/25/23 04/27/24 Rx 36,000-114,000-180,000 unit #300 caps capsule,delay rel (Creon) acetaminophen 500 mg tablet 1,000 mg PO Q6H PRN fever or pain 11/15/23 04/27/24 History atorvastatin 80 mg tablet 80 mg PO QDAY 11/15/23 04/27/24 History hydrocortisone 2.5 % topical cream 1 applic [place] BID PRN Crohn's 11/29/23 04/27/24 Rx with [...] cataract Intermittent (more content not included)... Normal [facility] Abdomen Limitedon 03-25-2024 Abdomen Limited [facility] [address] [place] [address] Abdomen Limited MR#: [id number] Acct: [id number] Name: MARIMAR WANG Rep #: [id number] : 1960 F 63 From: Juan Antonio hernandez MD PCP: Julio Arriaga NP-C Status: REG CLI Study: Abdomen Limited Date of Exam: 03/25/24 Exam# [id number] Ordering Dr: Andrez Pitts DO [id number] STUDY: ABDOMINAL ULTRASOUND - RIGHT UPPER QUADRANT [...] , CC: SIN[facility] Arriaga; Andrez Pitts DO Pre Owned Sales Manager: Signed Normal [facility] CBC W Auto Differential pane l (Bld)on 01-29-2024 Basophils (Bld) [#/Vol] 0.05 10*3/uL [facility] Basophils/100 WBC (Bld) 0.8 % [facility] Differential cell count method Nom (Bld) Auto [facility] Eosinophils (Bld) [#/Vol] 0.11 10*3/uL [facility] Eosinophils/100 WBC (Bld) 1.7 % [facility] Erythrocyte distribution width (RBC) [Ratio] 16.1 % High 11.5 - 15.0 % [facility] Hematocrit (Bld) [Volume fraction] 33.2 % Low 36.0 - 46.0 % [facility] Hemoglobin (Bld) [Mass/Vol] 10.2 g/dL Low 11.5 - 15.5 g/dL [facility] Immature granulocytes (Bld) [#/Vol] [facility] Immature granulocytes/100 WBC (Bld) 0.2 % [facility] Interpretation and review of laboratory results Abnormal [facility] Lymphocytes (Bld) [#/Vol] 0.95 10*3/uL Low [facility] Lymphocytes/100 WBC (Bld) 15.1 % [facility] MCH (RBC) [Entitic mass] 24.5 pg Low 26.0 - 34.0 pg [facility] MCHC (RBC) [Mass/Vol] 30.7 g/dL 30.5 - 36.0 g/dL [facility] MCV (RBC) [Entitic vol] 79.8 fL Low 80.0 - 100.0 fL [facility] Monocytes (Bld) [#/Vol] 0.59 10*3/uL [facility] Monocytes/100 WBC (Bld) 9.4 % [facility] Neutrophils (Bld) [#/Vol] 4.60 10*3/uL [facility] Neutrophils/100 WBC (Bld) 72.8 % [facility] Nucleated RBC (Bld) [#/Vol] [facility] Nucleated RBC/100 WBC (Bld) [Ratio] [facility] Platelet mean volume (Bld) [Entitic vol] 10.8 fL 9.0 - 12.7 fL [facility] Platelets (Bld) [#/Vol] 216 10*3/uL [facility] RBC (Bld) [#/Vol] 4.16 10*6/uL 3.90 - 5.2 0 m/uL [facility] WBC (Bld) [#/Vol] 6.31 10*3/uL [facility] Basophils (Bld) [#/Vol] 0.05 10*3/uL Normal <0.11 [facility] Comment on above: Order Comment: Speci men Type: BLOOD SPECIMEN Ordering Facility: [facility] Address: [address] [place] [address] Performed By: #### 5 7021-8 #### [facility] CLIA [id number] [address] [place] [address] [place] Basophils/100 WBC (Bld) 0.8 % Normal A [facility] Comment on above: Order Comment: Speci men Type: BLOOD SPECIMEN Ordering Facility: [facility] Address: [address] [place] [address] Performed By: #### 5 7021-8 #### [facility] CLIA [id number] [address] [place] [address] [place] Differential cell count method Nom (Bld) Auto Normal [facility] Comment on above: Order Comment: Speci men Type: BLOOD SPECIMEN Ordering Facility: [facility] Address: [address] [place] [address] Performed By: #### 5 7021-8 #### [facility] CLIA [id number] [address] [place] [address] [place] Eosinophils (Bld) [#/Vol] 0.11 10*3/uL Normal <0.46 [facility] Comment on above: Order Comment: Speci men Type: BLOOD SPECIMEN Ordering Facility: [facility] Address: [address] [place] [address] Performed By: #### 5 7021-8 #### [facility] CLIA [id number] [address] [place] [address] [place] Eosinophils/100 WBC (Bld) 1.7 % Normal [facility] Comment on above: Order Comment: Speci men Type: BLOOD SPECIMEN Ordering Facility: [facility] Address: [address] [place] [address] Performed By: #### 5 7021-8 #### [facility] CLIA [id number] [address] [place] [address] [place] Erythrocyte distribution width (RBC) [Ratio] 16.1 % High 11.5-15.0 [facility] Comment on above: Order Comment: Speci men Type: BLOOD SPECIMEN Ordering Facility: [facility] Address: [address] [place] [address] Performed By: #### 5 7021-8 #### [facility] CLIA [id number] [address] [place], [place] [address] [place] Hematocrit (Bld) [Volume fraction] 33.2 % Low 36.0-46.0 [facility] Comment on above: Order Comment: Speci men Type: BLOOD SPECIMEN Ordering Facility: [facility] Address: [facility] [place] [address] Performed By: #### 5 7021-8 #### [facility] CLIA [id number] [address] [place], [place] [address] [place] Hemoglobin (Bld) [Mass/Vol] 10.2 g/dL Low 11.5-15.5 [facility] Comment on above: Order Comment: Speci men Type: BLOOD SPECIMEN Ordering Facility: [facility] Address: [address] [place] [address] Performed By: #### 5 7021-8 #### [facility] CLIA [id number] [address] [place], [place] [address] [place] Immature granulocytes (Bld) [#/Vol] 10*3/uL Normal <0.10 [facility] Comment on above: Order Comment: Speci men Type: BLOOD SPECIMEN Ordering Facility: [facility] Address: [facility] [place] [address] Performed By: #### 5 7021-8 #### [facility] CLIA [id number] [address] [place], [place] [address] [place] Immature granulocytes/100 WBC (Bld) 0.2 % Normal [facility] Comment on above: Order Comment: Speci men Type: BLOOD SPECIMEN Ordering Facility: [facility] Address: [facility] [place] [address] Performed By: #### 5 7021-8 #### [facility] CLIA [id number] [address] [place] [address] [place] Lymphocytes (Bld) [#/Vol] 0.95 10*3/uL Low 1.00-4.00 [facility] Comment on above: Order Comment: Speci men Type: BLOOD SPECIMEN Ordering Facility: [facility] Address: [address] [place] [address] Performed By: #### 5 7021-8 #### [facility] CLIA [id number] [address] [place], [place] [address] [place] Lymphocytes/100 WBC (Bld) 15.1 % Normal [facility] Comment on above: Order Comment: Speci men Type: BLOOD SPECIMEN Ordering Facility: [facility] Address: [address] [place] [address] Performed By: #### 5 7021-8 #### [facility] CLIA [id number] [address] [place], [place] [address] [place] MCH (RBC) [Entitic mass] 24.5 pg Low 26.0-34.0 [facility] Comment on above: Order Comment: Speci men Type: BLOOD SPECIMEN Ordering Facility: [facility] Address: [address] [place] [address] Performed By: #### 5 7021-8 #### [facility] CLIA [id number] [address] [place] [address] [place] MCHC (RBC) [Mass/Vol] 30.7 g/dL Normal 30.5-36.0 [facility] Comment on above: Order Comment: Speci men Type: BLOOD SPECIMEN Ordering Facility: [facility] Address: [address] [place] [address] Performed By: #### 5 7021-8 #### [facility] CLIA [id number] [address] [place] [address] [place] MCV (RBC) [Entitic vol] 79.8 fL Low 80.0-100.[address] [facility] Comment on above: Order Comment: Speci men Type: BLOOD SPECIMEN Ordering Facility: [facility] Address: [address] [place] [address] Performed By: #### 5 7021-8 #### [facility] CLIA [id number] [address] [place] [address] [place] Monocytes (Bld) [#/Vol] 0.59 10*3/uL Normal <0.87 [facility] Comment on above: Order Comment: Speci men Type: BLOOD SPECIMEN Ordering Facility: [facility] Address: [address] [place] [address] Performed By: #### 5 7021-8 #### [facility] CLIA [id number] [address] [place] [address] [place] Monocytes/100 WBC (Bld) 9.4 % Normal A [facility] Comment on above: Order Comment: Speci men Type: BLOOD SPECIMEN Ordering Facility: [facility] Address: [address] [place] [address] Performed By: #### 5 7021-8 #### [facility] CLIA [id number] [address] [place] [address] [place] Neutrophils (Bld) [#/Vol] 4.60 10*3/uL Normal 1.45-7.50 [facility] Comment on above: Order Comment: Speci men Type: BLOOD SPECIMEN Ordering Facility: [facility] Address: [address] [place] [address] Performed By: #### 5 7021-8 #### [facility] CLIA [id number] [address] [place], [place] [address] [place] Neutrophils/100 WBC (Bld) 72.8 % Normal [facility] Comment on above: Order Comment: Speci men Type: BLOOD SPECIMEN Ordering Facility: [facility] Address: [address] [place] [address] Performed By: #### 5 7021-8 #### [facility] CLIA [id number] [address] [place] [address] [place] Nucleated RBC (Bld) [#/Vol] Normal [facility] Comment on above: Order Comment: Speci men Type: BLOOD SPECIMEN Ordering Facility: [facility] Address: [address] [place] [address] Performed By: #### 5 7021-8 #### [facility] CLIA [id number] [address] [place] [address] [place] Nucleated RBC/100 WBC (Bld) [Ratio] Normal [facility] Comment on above: Order Comment: Speci men Type: BLOOD SPECIMEN Ordering Facility: [facility] Address: [address] [place] [address] Performed By: #### 5 7021-8 #### [facility] CLIA [id number] [address] [place] [address] [place] Platelet mean volume (Bld) [Entitic vol] 10.8 fL Normal 9.0-12.7 [facility] Comment on above: Order Comment: Speci men Type: BLOOD SPECIMEN Ordering Facility: [facility] Address: [address] [place] [address] Performed By: #### 5 7021-8 #### [facility] CLIA [id number] [address] [place] [address] [place] Platelets (Bld) [#/Vol] 216 10*3/uL Normal 150-400 [facility] Comment on above: Order Comment: Speci men Type: BLOOD SPECIMEN Ordering Facility: [facility] Address: [address] [place] [address] Performed By: #### 5 7021-8 #### [facility] CLIA [id number] [address] [place] [address] [place] RBC (Bld) [#/Vol] 4.16 10*6/uL Normal 3.90-5.20 [facility] Comment on above: Order Comment: Speci men Type: BLOOD SPECIMEN Ordering Facility: [facility] Address: [address] [place] [address] Performed By: #### 5 7021-8 #### [facility] CLIA [id number] [address] [place] [address] [place] WBC (Bld) [#/Vol] 6.31 10*3/uL Normal 3.70-11.00 [facility] Comment on above: Order Comment: Speci men Type: BLOOD SPECIMEN Ordering Facility: [facility] Address: [address] [place] [address] Performed By: #### 5 7021-8 #### [facility] CLIA [id number] [facility] [place] [address] [facility] [place] Comprehensive metabolic 2000 panelon 01-29-2024 Albumin [Mass/Vol] 3.7 g/dL Low 3.9 - 4.9 g/dL [facility] ALP [Catalytic activity/Vol] 92 U/L 34 - 123 U/L [facility] ALT With P-5'-P [Catalytic activity/Vol] 17 U/L 7 - 38 U/L [facility] Anion gap [Moles/Vol] 13 mmol/L 8 - 15 mmol/L [facility] AST With P-5'-P [Catalytic activity/Vol] 27 U/L 13 - 35 U/L [facility] Bilirubin [Mass/Vol] 0.2 mg/dL 0.2 - 1 .3 mg/dL [facility] Calcium [Mass/Vol] 9.0 mg/dL 8.5 - 10. 2 mg/dL [facility] Chloride [Moles/Vol] 103 mmol/L 98 - 10 7 mmol/L [facility] CO2 [Moles/Vol] 21 mmol/L Low 22 - 30 mmol/L [facility] Creatinine [Mass/Vol] 0.82 mg/dL 0.58 - 0.96 mg/dL [facility] GFR/1.73 sq M.predicted among non-blacks MDRD (S/P/Bld) [Vol rate/Area] 80 mL/min/{1.73_m2} - PINF [facility] Comment on above: Estimated Glomerular Filtration Rate [...] [Mass/Vol] 97 mg/dL 74 - 99 mg/dL [facility] Comment on above: The [place] Diab[employer] s Association (ADA) provides guidance for [...] Standards of Medical Care in Diabetes 2016, [place] [employer]. Diabetes Care. 2016.39(Suppl 1). Interpretation and review of laboratory results Abnormal [facility] Potassium [Moles/Vol] 4.3 mmol/L 3.7 - 5.1 mmol/L [facility] Protein [Mass/Vol] 6.5 g/dL 6.3 - 8.0 g/dL [facility] Sodium [Moles/Vol] 137 mmol/L 136 - 144 mmol/L [facility] Urea nitrogen [Mass/Vol] 8 mg/dL 7 - 21 mg/dL [facility] Albumin [Mass/Vol] 3.7 g/dL Low 3.9-4.9 [facility] Comment on above: Order Comment: Mindy mcfarlane Type: BLOOD SPECIMEN Ordering Facility: [facility] Address: [address] [place] [address] Performed By: #### 2 4323-8 #### [facility] CLIA [id number] [address] [place] [address] [place] ALP [Catalytic activity/Vol] 92 U/L Normal 34-123 [facility] Comment on above: Order Comment: Mindy mcfarlane Type: BLOOD SPECIMEN Ordering Facility: [facility] Address: [address] [place] [address] Performed By: #### 2 4323-8 #### [facility] CLIA [id number] [address] [place] [address] [place] ALT With P-5'-P [Catalytic activity/Vol] 17 U/L Normal 7-38 [facility] Comment on above: Order Comment: Speci men Type: BLOOD SPECIMEN Ordering Facility: [facility] Address: [address] [place] [address] Performed By: #### 2 4323-8 #### [facility] CLIA [id number] [address] STATES [place] Anion gap [Moles/Vol] 13 mmol/L Normal 8-15 [facility] Comment on above: Order Comment: Speci men Type: BLOOD SPECIMEN Ordering Facility: [facility] Address: [address] [place] [address] Performed By: #### 2 4323-8 #### [facility] CLIA [id number] [address] STATES OF [facility] AST With P-5'-P [Catalytic activity/Vol] 27 U/L Normal 13-35 [facility] Comment on above: Order Comment: Speci men Type: BLOOD SPECIMEN Ordering Facility: [facility] Address: [address] [place] [address] Performed By: #### 2 4323-8 #### [facility] CLIA [id number] [address] [place] Bilirubin [Mass/Vol] 0.2 mg/dL Normal 0.2-1.3 [facility] Comment on above: Order Comment: Speci men Type: BLOOD SPECIMEN Ordering Facility: [facility] Address: [address] [place] [address] Performed By: #### 2 4323-8 #### [facility] CLIA [id number] [address] [place] Calcium [Mass/Vol] 9.0 mg/dL Normal 8.5-10.2 [facility] Comment on above: Order Comment: Speci men Type: BLOOD SPECIMEN Ordering Facility: [facility] Address: [address] [place] [address] Performed By: #### 2 4323-8 #### [facility] CLIA [id number] [address] [place] Chloride [Moles/Vol] 103 mmol/L Normal 98-107 [facility] Comment on above: Order Comment: Speci men Type: BLOOD SPECIMEN Ordering Facility: [facility] Address: [address] [place] [address] Performed By: #### 2 4323-8 #### [facility] CLIA [id number] [address] [place] CO2 [Moles/Vol] 21 mmol/L Low 22-30 [facility] Comment on above: Order Comment: Speci men Type: BLOOD SPECIMEN Ordering Facility: [facility] Address: [address] [place] [address] Performed By: #### 2 4323-8 #### [facility] CLIA [id number] [address] [facility] Creatinine [Mass/Vol] 0.82 mg/dL Normal 0.58-0.96 [facility] Comment on above: Order Comment: Speci men Type: BLOOD SPECIMEN Ordering Facility: [facility] Address: [address] [place] [address] Performed By: #### 2 4323-8 #### [facility] CLIA [id number] [address] Creatinine and Glomerular filtration rate.predicted panel (S/P/Bld) 80 mL/min/1.73m??? Normal >=60 [facility] Comment on above: Order Comment: Speci men Type: BLOOD SPECIMEN Ordering Facility: [facility] Address: [address] [place] [address] Result Comment: Sonia mated Glomerular Filtration Rate [...] 2 4323-8 #### [facility] CLIA [id number] 1 [place] [address] [place] Glucose [Mass/Vol] 97 mg/dL Normal 74-99 [facility] Comment on above: Order Comment: Mindy mcfarlane Type: BLOOD SPECIMEN Ordering Facility: [facility] Address: [address] [place] [address] Result Comment: The [place] Diabetes Association (ADA) provides guidance for cutoff [...] Standards of Medical Care in Diabetes 2016, [place] [employer] Association. Diabetes Care. 2016.39(Suppl 1). Performed By: #### 2 4323-8 #### [facility] CLIA [id number] 1 [place] [address] [place] Potassium [Moles/Vol] 4.3 mmol/L Normal 3.7-5.1 [facility] Comment on above: Order Comment: Mindy mcfarlane Type: BLOOD SPECIMEN Ordering Facility: [facility] Address: [address] [place] [address] Performed By: #### 2 4323-8 #### [facility] CLIA [id number] 1 [place] [address] [place] Protein [Mass/Vol] 6.5 g/dL Normal 6.3-8.0 [facility] Comment on above: Order Comment: Mindy mcfarlane Type: BLOOD SPECIMEN Ordering Facility: [facility] Address: [address] [place] [address] Performed By: #### 2 4323-8 #### [facility] CLIA [id number] [address] Sodium [Moles/Vol] 137 mmol/L Normal 136-144 [facility] Comment on above: Order Comment: Speci men Type: BLOOD SPECIMEN Ordering Facility: [facility] Address: [address] [place] [address] Performed By: #### 2 4323-8 #### [facility] CLIA [id number] [address] Urea nitrogen [Mass/Vol] 8 mg/dL Normal 7-21 [facility] Comment on above: Order Comment: Speci men Type: BLOOD SPECIMEN Ordering Facility: [facility] Address: [address] [place] [address] Performed By: #### 2 4323-8 #### [facility] CLIA [id number] [address] 12-31-2023 CNPN Telephone (RHBATH) -------- MARIMAR WANG ([id number]) 1960 F Date Time Provider Department 12/31/23 JENNIFER ARIAS [facility] During your visit today, we recorded [...] Fully Assessed Reason for Visit: Patient Question [3571] Visit Diagnoses:High risk medication use [Z79.899] Rheumatoid [...] 80 mg by mouth once daily. - [id number]-[id number]-zctwxyd (CREON 36) 36,000-114,000- 180,000 unit delayed release [...] Comments as of 02/06/2017: Herlinda use pharmacy [facility] [place] [address] Problem List As Of Date 12/31/2023 Noted [...] [K90.9] 03/18/2015 (more content not included)... Normal [facility] PULMONARY FUNCTION STUDYon 0 12-04-2023 PULMONARY FUNCTION STUDY [facility] PULMONARY FUNCTION TEST NAME ACCOUNT SEX AGE VISIT DATE ROOM PT MEDICAL REC. # NUMBER TYPE MARIMAR WANG [id number] F 63 10/16/2023 2 L [id number] DATE OF : 1960 DICTATING PHYSICIAN: Ernesto [...] Ernesto Carrillo MD 10/24/23 16:59 JOB #: [id number] Transcribed By: am 10/25/23 07:34 Electronically signed by: Mik Carrillo M.D. 12/04/23 14:22 MARIMAR WANG Page 1 of 1 Normal [facility] 25-hydroxyvitamin D3 [Mass/V ol]on 11-20-2023 Interpretation and review of laboratory results Normal [facility] C-REACTIVE PROTEINon 024 CRP [Mass/Vol] mg/dL [facility]dL [facility] CBC W Auto Differential pane l (Bld)on 11-20-2023 Basophils (Bld) [#/Vol] 0.05 10*3/uL [facility] Basophils/100 WBC (Bld) 0.7 % [facility] Differential cell count method Nom (Bld) Auto [facility] Eosinophils (Bld) [#/Vol] 0.12 10*3/uL [facility] Eosinophils/100 WBC (Bld) 1.7 % [facility] Erythrocyte distribution width (RBC) [Ratio] 14.3 % 11.5 - 15.0 % [facility] Hematocrit (Bld) [Volume fraction] 34.3 % Low 36.0 - 46.0 % [facility] Hemoglobin (Bld) [Mass/Vol] 10.6 g/dL Low 11.5 - 15.5 g/dL [facility] Immature granulocytes (Bld) [#/Vol] [facility] Immature granulocytes/100 WBC (Bld) 0.1 % [facility] Interpretation and review of laboratory results Abnormal [facility] Lymphocytes (Bld) [#/Vol] 1.62 10*3/uL [facility] Lymphocytes/100 WBC (Bld) 23.3 % [facility] MCH (RBC) [Entitic mass] 26.0 pg 26.0 - 34.0 pg [facility] MCHC (RBC) [Mass/Vol] 30.9 g/dL 30.5 - 36.0 g/dL [facility] MCV (RBC) [Entitic vol] 84.3 fL 80.0 - 100.0 fL [facility] Monocytes (Bld) [#/Vol] 0.52 10*3/uL [facility] Monocytes/100 WBC (Bld) 7.5 % [facility] Neutrophils (Bld) [#/Vol] 4.63 10*3/uL [facility] Neutrophils/100 WBC (Bld) 66.7 % [facility] Nucleated RBC (Bld) [#/Vol] [facility] Nucleated RBC/100 WBC (Bld) [Ratio] [facility] Platelet mean volume (Bld) [Entitic vol] 11.1 fL 9.0 - 12.7 fL [facility] Platelets (Bld) [#/Vol] 244 10*3/uL [facility] RBC (Bld) [#/Vol] 4.07 10*6/uL 3.90 - 5.2 0 m/uL [facility] WBC (Bld) [#/Vol] 6.95 10*3/uL [facility] CRP [Mass/Vol]on 11-20-2023 Interpretation and review of laboratory results Normal [facility] Comprehensive metabolic 2000 panelon 11-20-2023 Albumin [Mass/Vol] 4.0 g/dL 3.9 - 4.9 g/dL [facility] ALP [Catalytic activity/Vol] 95 U/L 34 - 123 U/L [facility] ALT With P-5'-P [Catalytic activity/Vol] 12 U/L 7 - 38 U/L [facility] Anion gap [Moles/Vol] 11 mmol/L 9 - 18 mmol/L [facility] AST With P-5'-P [Catalytic activity/Vol] 20 U/L 13 - 35 U/L [facility] Bilirubin [Mass/Vol] 0.2 mg/dL 0.2 - 1 .3 mg/dL [facility] Calcium [Mass/Vol] 8.9 mg/dL 8.5 - 10. 2 mg/dL [facility] Chloride [Moles/Vol] 103 mmol/L 97 - 10 5 mmol/L [facility] CO2 [Moles/Vol] 23 mmol/L 22 - 30 mmol/L [facility] Creatinine [Mass/Vol] 0.70 mg/dL 0.58 - 0.96 mg/dL [facility] GFR/1.73 sq M.predicted among non-blacks MDRD (S/P/Bld) [Vol rate/Area] 97 mL/min/{1.73_m2} - PINF [facility] Comment on above: Estimated Glomerular Filtration Rate [...] 119 mg/dL High 74 - 99 mg/dL [facility] Comment on above: The [place] Diabete s Association (ADA) provides guidance for [...] Standards of Medical Care in Diabetes 2016, [place] Diabetes [employer]. Diabetes Care. 2016.39(Suppl 1). Interpretation and review of laboratory results Abnormal [facility] Potassium [Moles/Vol] 3.6 mmol/L Low 3.7 - 5.1 mmol/L [facility] Protein [Mass/Vol] 6.7 g/dL 6.3 - 8.0 g/dL [facility] Sodium [Moles/Vol] 137 mmol/L 136 - 144 mmol/L [facility] Urea nitrogen [Mass/Vol] 9 mg/dL 7 - 21 mg/dL [facility] ESR Westergren method (Bld) [Velocity]on 11-20-2023 ESR (Bld) [Velocity] 20 mm/h [facility] Interpretation and review of laboratory results Normal [facility] No Panel Informationon 11-19 [facility] VITAMIN D 25 HYDROXYon 11-19 25-hydroxyvitamin D3 [Mass/Vol] 62.6 ng/mL 30.0 - PINF ng/mL [facility] Comment on above: Classification of 25 [place] Vitamin D status: Deficiency: <= 20.0 ng/ml. Insufficiency: 21.0-29.0 ng/ml. Sufficiency: >= 30.0 ng/ml. CMP with eGFRon 09-26-2023 /SGPT 17 Normal [facility] Comment on above: Performed By: #### 2 66148 #### [place] [id number] AGE 63 years Normal [facility] Comment on above: Performed By: #### 2 26202 #### [address] [address] Albumin [Mass/Vol] 3.0 g/dL Low 3.4 - 5.0 [facility] Comment on above: Performed By: #### 2 00326 #### [place] [id number] Albumin/Globulin [Mass ratio] 0.8 {ratio} Low 0.9 - 1.6 [facility] Comment on above: Performed By: #### 2 25667 #### [facility],[address] [place], [place] [id number] ALK PHOS 81 U/L Normal 46 - 116 [facility] Comment on above: Performed By: #### 2 48217 #### [facility],[address] [place] [address] Anion gap [Moles/Vol] 9 mmol/L Low 10 - 20 [facility] Comment on above: Performed By: #### 2 38266 #### [facility],[address] [place] [address] AST [Catalytic activity/Vol] 20 U/L Normal 13 - 39 [facility] Comment on above: Performed By: #### 2 53164 #### [facility],[address] [place] [address] B/C RATIO 16 ratio Normal 0 - 30 [facility] Comment on above: Performed By: #### 2 44705 #### [facility],[address] [place] [address] Bilirubin [Mass/Vol] 0.3 mg/dL Normal 0.2 - 1.0 [facility] Comment on above: Performed By: #### 2 82756 #### [facility],[address] [place], [place] [id number] Calcium [Mass/Vol] 9.0 mg/dL Normal 8.5 - 10.1 [facility] Comment on above: Performed By: #### 2 55392 #### [facility],[address] [place], [place] [id number] Chloride [Moles/Vol] 106 mmol/L Normal 98 - 107 [facility] Comment on above: Performed By: #### 2 82070 #### [facility],[address] [place], [place] [id number] CMP with eGFR Normal [facility] Comment on above: Result Comment: COMP REHENSIVE METABOLIC PANEL Performed By: #### 2 65146 #### [facility],[address] [place], [place] [id number] CO2 [Moles/Vol] 27.4 mmol/L Normal 21.0 - 32.0 [facility] Comment on above: Performed By: #### 2 59631 #### [facility],[address] [place] [address] Creatinine [Mass/Vol] 0.82 mg/dL Normal 0.55 - 1.02 [facility] Comment on above: Performed By: #### 2 19247 #### [facility],[address] [place] [address] GFR/1.73 sq M.predicted among non-blacks MDRD (S/P/Bld) [Vol rate/Area] mL/min/{1.73_m2} Normal 60 - 999 [facility] Comment on above: Performed By: #### 2 30163 #### [facility],[address] [place] [address] Result Comment: ACCO RDING TO THE NATIONAL KIDNEY DISEASE EDUCATION PROGRAM(NKDE), A NORMAL eGFR IS A VALUE GREATER THAN OR EQUAL TO 60 ML/MIN/1.73 SQ METERS. CHRONIC KIDNEY DISEASE: <60mL/MIN/1.73 SQ METERS KIDNEY FAILURE: <15mL/MIN/1.73 SQ METERS THIS TEST SHOULD ONLY BE USED FOR PATIENTS 18 YEARS OF AGE AND OLDER. Globulin (S) [Mass/Vol] 3.8 g/dL Normal 1.5 - 3.8 [facility] Comment on above: Performed By: #### 2 23291 #### [facility],[address] [place], [place] [id number] Glucose [Mass/Vol] 103 mg/dL Normal 74 - 106 [facility] Comment on above: Performed By: #### 2 28080 #### [facility],[address] [place] [address] Potassium [Moles/Vol] 4.1 mmol/L Normal 3.5 - 5.1 [facility] Comment on above: Performed By: #### 2 62776 #### [facility],[address] [place] [address] Protein [Mass/Vol] 6.8 g/dL Normal 6.4 - 8.2 [facility] Comment on above: Performed By: #### 2 62654 #### [facility],[address] [place], [place] [address] Sodium [Moles/Vol] 138 mmol/L Normal 136 - 145 [facility] Comment on above: Performed By: #### 2 74060 #### [facility],[address] [place] [address] Urea nitrogen [Mass/Vol] 13 mg/dL Normal 7 - 18 [facility] Comment on above: Performed By: #### 2 33472 #### [facility],[address] [place], [place] [id number] HEMOGLOBIN A1C (POM)on Glucose [Mass/Vol] 111.2 mg/dL High 0.0 - 0.0 [facility] Comment on above: Result Comment: BLDo HEMOGLOBIN A1C REFERENCE RANGESBLDo Suggested Diagnosis HbA1c(%) HbA1C (mmol/mol Diabetic >/=6.5 >/=48 Prediabetes 5.7 - 6.4 39 - 47 Normal <5.7 <39 Performed By: #### 2 15545 #### [facility],[address] [place], [place] [address] HbA1c (Bld) [Mass fraction] 5.5 % Normal 0.0 - 6.5 [facility] Comment on above: Performed By: #### 2 19935 #### [facility],[address] [place], [place] [phone] LIPID PROFILEon 09-26-2023 Cholesterol [Mass/Vol] 213 mg/dL Normal 0 - 240 [facility] Comment on above: Performed By: #### 2 83666 #### [facility],[address] [place] [address] Cholesterol in HDL [Mass/Vol] 83 mg/dL High 40 - 60 [facility] Comment on above: Performed By: #### 2 18430 #### [facility],[address] [place] [address] Cholesterol in LDL [Mass/Vol] 119 mg/dL Normal 0 - 129 [facility] Comment on above: Performed By: #### 2 68775 #### [facility],[address] [place] [address] Cholesterol.total/Wendy sterol in HDL [Mass ratio] 2.6 {ratio} Normal 0.0 - 5.0 [facility] Comment on above: Performed By: #### 2 84340 #### [facility],[address] [place] [address] Lipid 1996 panel Normal [facility] Comment on above: Result Comment: LIPI D PROFILE Performed By: #### 2 85919 #### [facility],[address] [place] [address] Triglyceride [Mass/Vol] 57 mg/dL Normal 0 - 150 [facility] Comment on above: Performed By: #### 2 15054 #### [facility],[address] [place] [address] MAGNESIUMon 09-26-2023 Magnesium [Mass/Vol] 2.1 mg/dL Normal 1.8 - 2.4 [facility] Comment on above: Performed By: #### 2 30068 #### [facility],[address] [place] [address] NT-proBNPon 09-19-2023 Natriuretic peptide B (Bld) [Mass/Vol] 511 pg/mL High 0 - 125 [facility] Comment on above: Performed By: #### 2 43518 #### [facility],[address] [place] [address] Giardia lamblia ag stool EIA Ordered By: Andrez Pitts on 09-06-2023 G. lamblia Ag IA Ql (Stl) Negative Negative [facility] Comment on above: Performed at: BN - [facility] [address] [id number] Director: Beverley Cleveland MD, Phone: [phone] at: [facility] [id number] [place], [place] [id number] Director: Emmanuel Osorio PhD, Phone: [phone] No Panel InformationOrdered By: Andrez Pitts on 09-06-2023 Miscellaneous Test See comment [facility] Comment on above: TEST RESULTS LIMITSA [id number], Fecal, Qn A, 0.173 mg/g 0.041-0.336 CommentsA: Results of this test are labeled for research purposes only by the assay's extrusion manager. The performance characteristics of this assay have not been established by the extrusion manager. The result should not be used for treatment or for diagnostic purposes without confirmation of the diagnosis by anothermedically established diagnostic product or procedure. The performance characteristics were determined by [employer]. TESTING PERFORMED AT [facility]. ORIGINAL REPORT ON FILE IN LAB CONTAINS ADDITIONAL TEST SITE INFORMATION. Stool Calprotectin 81 ug/g 0-120 [facility] Comment on above: Concentration Interp retation Follow-Up< 5 - 50 ug/g Normal None>50 -120 ug/g Borderline Re-evaluate in 4-6 weeks >120 ug/g Abnormal Repeat as clinically indicatedPerformed at: - [facility] [address] [id number] Director: Beverley Cleveland MD, Phone: [phone] Ova and parasitesOrdered By: Andrez Pitts on 09-06-2023 Ova and parasites identified LM Nom (Unsp spec) [facility] Stool pancreatic elastase me asurement (mass/mass)Ordered By: Andrez Pitts on 09-06-2023 Elastase.pancreatic (Stl) [Mass/Mass] 76 >200 [facility] Comment on above: Result Units: ug Christina st./gResults verified by repeat testing Severe Pancreatic Insufficiency: <100 Moderate Pancreatic Insufficiency: 100 - 200 Normal: >200 Basophil percentageOrdered B y: Andrez Pitts on 07-25-2023 Basophil percentage < 1.0 mg/dL 0.55-1.02 [facility] No Panel InformationOrdered By: Andrez Pitts on 07-25-2023 Bedside Estimated GFR (eGFR) > 60.0000 mL/min >60 [facility] Chocolate RASTOrdered By: Ra ny Pitts on 07-05-2023 Chocolate IgE Qn (S) <0.10 kU/L Class 0 [facility] Hemoglobin in reticulocytes (mass per reticulocyte)Ordered By: Andrez Pitts on 07-05-2023 Hemoglobin (Reticulocytes) [Entitic mass] 31.7 pg 30-35 [facility] Iron measurement (mass/mass) Ordered By: Andrez Pitts on 07-05-2023 Iron (Unsp spec) [Mass/Mass] 46 ug/dL 50-170 [facility] Laboratory - Miscellaneous t estsOrdered By: Andrez Pitts on 07-05-2023 Service comment (Unsp spec) [Interp] Comment . [facility] Comment on above: Levels of Specific [...] 07-05-2023 Hepatitis A IgM Antibody Negative Negative [facility] Hepatitis B Core IgM Antibody Negative Negative [facility] Hepatitis C Antibody (EIA) Non-Reactive Non Reactive [facility] Hepatitis C Antibody Comment Comment . [facility] Comment on above: Not infected with HC V unless early or acute infection issuspected (which may be delayed in an immunocompromisedindividual), or other evidence exists to indicate HCVinfection. Immature Reticulocyte Fraction 11.20 % 3.00-15.90 [facility] Immunoglobulin E 10 IU/mL 6-495 [facility] Comment on above: Performed at: [address] [id number] Director: Emmanuel Osorio PhD, Phone: [phone] at: [facility] [address] [id number] Director: Beverley Cleveland MD, Phone: [phone] Mussel Allergen IgE Antibody <0.10 kU/L Class 0 [facility] Reticulocyte Count 1.61 % 0.5-1.5 [facility] Shrimp Allergen <0.10 kU/L Class 0 [facility] Total Iron Binding Capacity 311 ug/dL 250-450 [facility] Qualitative QuantiFERON-TB g old in tube testOrdered By: Andrez Pitts on 07-05-2023 M. tuberculosis tuberculin stim IFN-g Ql (Bld) See comment [facility] Comment on above: TEST RESULTS LIMITSQ [...] interferon gamma.Chemiluminescence immunoassay methodology TESTING PERFORMED AT [facility]. ORIGINAL REPORT ON FILE IN LAB CONTAINS [...] interferon gamma.Chemiluminescence immunoassay methodology TESTING PERFORMED AT [facility]. ORIGINAL REPORT ON FILE IN LAB CONTAINS ADDITIONAL TEST SITE INFORMATION. Serum beef IgE antibody assa y (units/volume)Ordered By: Andrez Pitts on 07-05-2023 Beef IgE Qn (S) <0.10 kU/L Class 0 [facility] Serum codfish IgE antibody a ssay (units/volume)Ordered By: Andrez Pitts on 07-05-2023 Codfish IgE Qn (S) <0.10 kU/L Class 0 [facility] Serum corn IgE antibody assa y (units/volume)Ordered By: Andrez Pitts on 07-05-2023 Veteran IgE Qn (S) <0.10 kU/L Class 0 [facility] Serum cow milk IgE antibody assay (units/volume)Ordered By: Andrez Pitts on 07-05-2023 Cow milk IgE Qn (S) <0.10 kU/L Class 0 [facility] Serum or plasma C reactive p rotein measurement (mass/volume)Ordered By: Andrez Pitts on 07-05-2023 CRP [Mass/Vol] mg/L 0.0-3.0 [facility] Comment on above: C-Reactive Protein ( CRP) provides useful information for thediagnosis, therapy and monitoring of inflammatory processesand associated diseases. For the evaluation of Relative Riskfor Cardiovascular Disease, a High Sensitivity CRP (HSCRP)should be ordered. Serum or plasma IgA measurem ent (mass/volume)Ordered By: Andrez Pitts on 07-05-2023 IgA [Mass/Vol] 106 mg/dL 87-352 [facility] Serum or plasma IgG measurem ent (mass/volume)Ordered By: Andrez Pitts on 07-05-2023 IgG [Mass/Vol] 967 mg/dL [phone] [facility] Serum or plasma IgM measurem ent (mass/volume)Ordered By: Andrez Pitts on 07-05-2023 IgM [Mass/Vol] 54 mg/dL 26-217 [facility] Serum or plasma ferritin anastacio surement (mass/volume)Ordered By: Andrez Pitts on 07-05-2023 Ferritin [Mass/Vol] 63 ng/mL 8-252 [facility] Serum or plasma hepatitis B virus surface antigen detection by immunoassayOrdered By: Andrez Pitts on 07-05-2023 HBV surface Ag IA Ql Negative Negative [facility] Serum or plasma iron saturat ion measurement (mass fraction)Ordered By: Andrez Pitst on 07-05-2023 Iron saturation [Mass fraction] 14.8 % 15.0-55.0 [facility] Serum peanut IgE antibody as say (units/volume)Ordered By: Andrez Pitts on 07-05-2023 Peanut IgE Qn (S) <0.10 kU/L Class 0 [facility] Serum pork IgE antibody assa y (units/volume)Ordered By: Andrez Pitts on 07-05-2023 Pork IgE Qn (S) <0.10 kU/L Class 0 [facility] Serum salmon IgE antibody as say (units/volume)Ordered By: Andrez Pitts on 07-05-2023 Hartwell IgE Qn (S) <0.10 kU/L Class 0 [facility] Serum soybean IgE antibody a ssay (units/volume)Ordered By: Andrez Pitts on 07-05-2023 Soybean IgE Qn (S) <0.10 kU/L Class 0 [facility] Serum tuna IgE antibody assa y (units/volume)Ordered By: Andrez Pitts on 07-05-2023 Tuna IgE Qn (S) <0.10 kU/L Class 0 [facility] Serum wheat IgE antibody ass ay (units/volume)Ordered By: Andrez Pitts on 07-05-2023 Wheat IgE Qn (S) <0.10 kU/L Class 0 [facility] Serum whole egg IgE antibody assay (units/volume)Ordered By: Andrez Pitts on 07-05-2023 Whole Egg IgE Qn (S) <0.10 kU/L Class 0 [facility] Comment on above: Performed at: [address] [id number] Director: Beverley Cleveland MD, Phone: [phone] Thin prep Papanicolaou smear with manual screeningOrdered By: Andrez Pitts on 07-05-2023 Thin prep Papanicolaou smear with manual screening Not Reportable [facility] C-REACTIVE PROTEIN (CRP)on 0 04-25-2023 CRP [Mass/Vol] 0.4 mg/dL <0.9 mg/dL [facility] CBC panel Auto (Bld)on 04-25 Erythrocyte distribution width (RBC) [Ratio] 14.0 % 11.5 - 15.0 % [facility] Hematocrit (Bld) [Volume fraction] 38.4 % 36.0 - 46.0 % [facility] Hemoglobin (Bld) [Mass/Vol] 12.0 g/dL 11.5 - 15.5 g/dL [facility] MCH (RBC) [Entitic mass] 27.1 pg 26.0 - 34.0 pg [facility] MCHC (RBC) [Mass/Vol] 31.3 g/dL 30.5 - 36.0 g/dL [facility] MCV (RBC) [Entitic vol] 86.7 fL 80.0 - 100.0 fL [facility] Nucleated RBC (Bld) [#/Vol] <0.01 k/uL [facility] Platelet mean volume (Bld) [Entitic vol] 12.3 fL 9.0 - 12.7 fL [facility] Platelets (Bld) [#/Vol] 263 10*3/uL 150 - 400 k/uL [facility] RBC (Bld) [#/Vol] 4.43 10*6/uL 3.90 - 5.2 0 m/uL [facility] WBC (Bld) [#/Vol] 6.72 10*3/uL 3.70 - 11. 00 k/uL [facility] CREATININE BLDon 04-25-2023 Creatinine [Mass/Vol] 0.80 mg/dL 0.60 - 1.30 mg/dL [facility] Estimated Glomerular Filtration Rate 82 mL/min/1.73m >=60 mL/min/1.73m [facility] Comprehensive metabolic 2000 panelon 04-25-2023 Albumin [Mass/Vol] 4.0 g/dL 3.9 - 4.9 g/dL [facility] ALP [Catalytic activity/Vol] 94 U/L 34 - 123 U/L [facility] ALT With P-5'-P [Catalytic activity/Vol] 9 U/L 7 - 38 U/L [facility] Anion gap [Moles/Vol] 13 mmol/L 9 - 18 mmol/L [facility] AST With P-5'-P [Catalytic activity/Vol] 17 U/L 13 - 35 U/L [facility] Bilirubin [Mass/Vol] 0.2 mg/dL 0.2 - 1 .3 mg/dL [facility] Calcium [Mass/Vol] 9.2 mg/dL 8.5 - 10. 2 mg/dL [facility] Chloride [Moles/Vol] 104 mmol/L 97 - 10 5 mmol/L [facility] CO2 [Moles/Vol] 21 mmol/L Low 22 - 30 mmol/L [facility] Creatinine [Mass/Vol] 0.80 mg/dL 0.58 - 0.96 mg/dL [facility] Estimated Glomerular Filtration Rate 82 mL/min/1.73m >=60 mL/min/1.73m [facility] Glucose [Mass/Vol] 159 mg/dL High 74 - 99 mg/dL [facility] Potassium [Moles/Vol] 4.1 mmol/L 3.7 - 5.1 mmol/L [facility] Protein [Mass/Vol] 6.2 g/dL Low 6.3 - 8.0 g/dL [facility] Sodium [Moles/Vol] 138 mmol/L 136 - 144 mmol/L [facility] Urea nitrogen [Mass/Vol] 9 mg/dL 7 - 21 mg/dL [facility] ESR Westergren method (Bld) [Velocity]on 04-25-2023 ESR (Bld) [Velocity] 26 mm/h High 0 - 20 mm/hr [facility] HBV surface Ab Ql (S)on 03-30 HBV surface Ab Qn (S) [facility] HEP B SURF ABon 04-25-2023 HBV surface Ab Ql (S) Negative [facility] HEP B SURF AG SCRNon 023 HBV surface Ag Ql (S) Non-Reactive Nonreactive [facility] HEPATITIS C ANTIBODY IA WITH CONFIRMATIONon 04-25-2023 HCV Ab Ql (S) Non-Reactive Nonreactive [facility] VITAMIN D 25 HYDROXYon 04-25 25-hydroxyvitamin D3 [Mass/Vol] 89.2 ng/mL >=30.0 ng/mL [facility] Basophil percentageOrdered B y: Michael Rawls on 01-24-2023 Chloride [Moles/Vol] 109 mmol/L 98-107 [facility] Glucose [Mass/Vol] 138 mg/dL 74-106 [facility] Comment on above: Fasting Glucose resu lt greater than or equal to 126 mg/dL suggests DIABETES MELLITUS per A.D.A. criteria. Potassium [Moles/Vol] 4.3 mmol/L 3.5-5.1 [facility] Sodium [Moles/Vol] 135 mmol/L 136-145 [facility] WBC (Bld) [#/Vol] 11.2 10*3/uL 4.4-11.0 [facility] Blood erythrocytes count (nu mber/volume)Ordered By: Michael Rawls on 01-24-2023 RBC (Bld) [#/Vol] 3.40 10*6/uL 4.2-5.4 [facility] Blood hemoglobin measurement (mass/volume)Ordered By: Michael Rawls on 01-24-2023 Hemoglobin (Bld) [Mass/Vol] 9.5 g/dL 12.0-15.0 [facility] Blood platelet mean volumeOr dered By: Michael Rawls on 01-24-2023 Platelet mean volume (Bld) [Entitic vol] 11.4 fL 6.2-12.0 [facility] Determination of erythrocyte mean corpuscular volume (MCV)Ordered By: Michael Rawls on 06-29-2023 MCV (RBC) [Entitic vol] 90.0 fL 81-99 [facility] Hematocrit Auto (Bld) [Volum e fraction]Ordered By: Michael Rawls on 01-24-2023 Hematocrit (Bld) [Volume fraction] 30.6 % 37-47 [facility] Laboratory - Chemistry and C hemistry - challengeOrdered By: Michael Rawls on 01-24-2023 CO2 [Moles/Vol] 23.0 mmol/L 21.0-32.0 [facility] Urea nitrogen/Creatinine [Mass ratio] 12.1 mg/mg 10-20 [facility] Laboratory - Hematology and Cell countsOrdered By: Michael Rawls on 01-24-2023 Erythrocyte distribution width (RBC) [Entitic vol] 41.4 fL 35.1-43.9 [facility] Erythrocyte distribution width (RBC) [Ratio] 12.6 % 11.6-14.6 [facility] MCH (RBC) [Entitic mass] 27.9 pg 27.0-32.0 [facility] MCHC Auto (RBC) [Mass/Vol]Or dered By: Michael Rawls on 01-24-2023 MCHC (RBC) [Mass/Vol] 31.0 g/dL 32-36 [facility] No Panel InformationOrdered By: Michael Rawls on 01-24-2023 Estimated Creatinine Clearance Calc 61.54 ml/min [facility] Estimated GFR (MDRD) Amer 101 mL/min >60 [facility] Comment on above: GFR Calc Estimated GFR (MDRD) Non-Af Amer 84 mL/min >60 [facility] Comment on above: Non- GFR Calc Platelets bldOrdered By: Jef Rawls on 01-24-2023 Platelets (Bld) [#/Vol] 199 10*3/uL 150-450 [facility] Serum or plasma calcium alexis urement (mass/volume)Ordered By: Michael Rawls on 01-24-2023 Calcium [Mass/Vol] 7.8 mg/dL 8.5-10.1 [facility] Serum or plasma creatinine m easurement (mass/volume)Ordered By: Michael Rawls on 01-24-2023 Creatinine [Mass/Vol] 0.74 mg/dL 0.55-1.02 [facility] Comment on above: The validity of the calculated GFR & GFRAA in patients over 70 years has not been determined. Clinical correlation is essential. Serum or plasma urea nitroge n measurement (mass/volume)Ordered By: Michael Rawls on 01-24-2023 Urea nitrogen [Mass/Vol] 9 mg/dL 7-18 [facility] Thin prep Papanicolaou smear with manual screeningOrdered By: Michael Rawls on 01-24-2023 Thin prep Papanicolaou smear with manual screening 3 5-15 [facility] INR in Blood by Coagulation assayOrdered By: Michael Rawls on 01-11-2023 INR Coag (Bld) [Relative time] 1.1 {INR} [facility] Laboratory - Chemistry and C hemistry - challengeOrdered By: Stas Young on 01-11-2023 Magnesium [Mass/Vol] 1.9 mg/dL 1.6-2.6 [facility] Laboratory - CoagulationOrde red By: Michael Rawls on 01-11-2023 aPTT Coag (Bld) [Time] 31.4 s 24.1-36.2 [facility] PT Coag (PPP) [Time] 14.0 s 11.7-14.9 [facility] No Panel InformationOrdered By: Michael Rawls on 01-11-2023 Fructosamine 241 umol/L 0-285 [facility] Comment on above: Published reference interval for apparently healthysubjects between age 20 and 60 is 205 - 285 umol/L and in apoorly controlled diabetic population is 228 - 563 umol/Lwith a mean of 396 umol/L.Performed at: [facility] [address] [id number] Director: Emmanuel Osorio PhD, Phone: [phone] Nasal Screen MRSA/MSSA [facility] Whole blood hemoglobin A1c/t otal hemoglobin ratio (mass fraction)Ordered By: Michael Rawls on 01-11-2023 HbA1c (Bld) [Mass fraction] 5.4 % 3.8-5.6 [facility] Comment on above: Normal < 5.7 % Predi abetic 5.7 - 6.4 % Diabetic >or= 6.5 % Please note range changes. No Panel InformationOrdered By: Jaci Warren on 12-05-2022 Stool Calprotectin 57 ug/g 0-120 [facility] Comment on above: Concentration Interp retation Follow-Up<16 - 50 ug/g Normal None>50 -120 ug/g Borderline Re-evaluate in 4-6 weeks >120 ug/g Abnormal Repeat as clinically indicatedPerformed at: [facility] [address] [id number] Director: Beverley Cleveland MD, Phone: [phone] Stool lactoferrin detection by immunoassayOrdered By: Jaci Warren on 12-05-2022 Lactoferrin IA Ql (Stl) [facility] CBC W Auto Differential pane l (Bld)on 10-18-2022 Basophils (Bld) [#/Vol] 0.08 10*3/uL <0.11 k/uL [facility] Basophils/100 WBC (Bld) 1.3 % [facility] Differential cell count method Nom (Bld) Auto [facility] Eosinophils (Bld) [#/Vol] 0.19 10*3/uL <0.46 k/uL [facility] Eosinophils/100 WBC (Bld) 3.2 % [facility] Erythrocyte distribution width (RBC) [Ratio] 13.5 % 11.5 - 15.0 % [facility] Hematocrit (Bld) [Volume fraction] 40.3 % 36.0 - 46.0 % [facility] Hemoglobin (Bld) [Mass/Vol] 12.5 g/dL 11.5 - 15.5 g/dL [facility] Immature granulocytes (Bld) [#/Vol] <0.10 k/uL [facility] Immature granulocytes/100 WBC (Bld) 0.3 % [facility] Lymphocytes (Bld) [#/Vol] 1.57 10*3/uL 1.00 - 4.00 k/uL [facility] Lymphocytes/100 WBC (Bld) 26.3 % [facility] MCH (RBC) [Entitic mass] 28.1 pg 26.0 - 34.0 pg [facility] MCHC (RBC) [Mass/Vol] 31.0 g/dL 30.5 - 36.0 g/dL [facility] MCV (RBC) [Entitic vol] 90.6 fL 80.0 - 100.0 fL [facility] Monocytes (Bld) [#/Vol] 0.55 10*3/uL <0.87 k/uL [facility] Monocytes/100 WBC (Bld) 9.2 % [facility] Neutrophils (Bld) [#/Vol] 3.55 10*3/uL 1.45 - 7.50 k/uL [facility] Neutrophils/100 WBC (Bld) 59.7 % [facility] Nucleated RBC (Bld) [#/Vol] <0.01 k/uL [facility] Nucleated RBC/100 WBC (Bld) [Ratio] 0.0 /100 WBC [facility] Platelet mean volume (Bld) [Entitic vol] 12.0 fL 9.0 - 12.7 fL [facility] Platelets (Bld) [#/Vol] 233 10*3/uL 150 - 400 k/uL [facility] RBC (Bld) [#/Vol] 4.45 10*6/uL 3.90 - 5.2 0 m/uL [facility] WBC (Bld) [#/Vol] 5.96 10*3/uL 3.70 - 11. 00 k/uL [facility] Absolute lymphocyte countOrd ered By: Jaci Warren on 09-19-2022 Lymphocytes Auto (Unsp spec) [#/Vol] 1.24 10*3/uL 0.83-4.51 [facility] Albumin Elph [Mass/Vol]Order ed By: Jaci Warren on 09-19-2022 Albumin [Mass/Vol] 3.5 g/dL 2.9-4.4 [facility] Atypical perinuclear antineu trophil cytoplasmic antibodies measurementOrdered By: Jaci Warren on 09-19-2022 Neutrophil cytoplasmic Ab.perinuclear.atypical IF (S) [Titer] <1:20 titer Neg:<1:20 [facility] Comment on above: The atypical pANCA p attern has been observed in asignificant percentage of patients with ulcerative colitis,primary sclerosing cholangitis and autoimmune hepatitis.Performed at: - [address] [id number] Director: Emmanuel Osorio PhD, Phone: [phone] at: [facility] [address] [id number] Director: Beverley Cleveland MD, Phone: [phone] Basophil percentageOrdered B y: Jaci Warren on 09-19-2022 Basophil percentage < 0.2 AI 0.0-0.9 [facility] Basophils/100 WBC (Bld) 0.9 % 0-1 [facility] Bilirubin [Mass/Vol] 0.60 mg/dL 0.20-1.00 [facility] Comment on above: For patients on eltr ombopag therapy, use of Dimension [place] TBIL is not recommended. Chloride [Moles/Vol] 105 mmol/L 98-107 [facility] Eosinophils/100 WBC (Bld) 2.2 % 0-5 [facility] Glucose [Mass/Vol] 99 mg/dL 74-106 [facility] LDH [Catalytic activity/Vol] 227 U/L 84-246 [facility] Neutrophils (Bld) [#/Vol] 4.5 10*3/uL 2.0-7.7 [facility] Neutrophils/100 WBC (Bld) 69.9 % 47-70 [facility] Potassium [Moles/Vol] 4.0 mmol/L 3.5-5.1 [facility] Protein [Mass/Vol] 7.4 g/dL 6.4-8.2 [facility] Sodium [Moles/Vol] 136 mmol/L 136-145 [facility] WBC (Bld) [#/Vol] 6.5 10*3/uL 4.4-11.0 [facility] Blood erythrocytes count (nu mber/volume)Ordered By: Jaci Warren on 09-19-2022 RBC (Bld) [#/Vol] 4.72 10*6/uL 4.2-5.4 [facility] Blood hemoglobin measurement (mass/volume)Ordered By: Jaci Warren on 09-19-2022 Hemoglobin (Bld) [Mass/Vol] 13.2 g/dL 12.0-15.0 [facility] Blood lymphocytes/100 leukoc ytesOrdered By: Jaci Warren on 09-19-2022 Lymphocytes/100 WBC (Bld) 19.1 % 19-41 [facility] Blood monocytes/100 leukocyt esOrdered By: Jaci Warren on 09-19-2022 Monocytes/100 WBC (Bld) 7.4 % 0-10 [facility] Blood platelet mean volumeOr dered By: Jaci Warren on 09-19-2022 Platelet mean volume (Bld) [Entitic vol] 11.9 fL 6.2-12.0 [facility] Determination of erythrocyte mean corpuscular volume (MCV)Ordered By: Jaci Warren on 09-19-2022 MCV (RBC) [Entitic vol] 90.5 fL 81-99 [facility] Erythrocyte sedimentation ra teOrdered By: Jaci Warren on 09-19-2022 ESR (Bld) [Velocity] 29 mm/h 0-30 [facility] Hematocrit Auto (Bld) [Volum e fraction]Ordered By: Jaci Warren on 09-19-2022 Hematocrit (Bld) [Volume fraction] 42.7 % 37-47 [facility] Interpretation of serum or p lasma protein pattern by immunofixation (narrative resultOrdered By: Jaci Warren on 09-19-2022 Protein Fractions Immunofixation Yair [Interp] See comment [facility] Comment on above: noT oBSERVED Laboratory - Chemistry and C hemistry - challengeOrdered By: Jaci Warren on 09-19-2022 ALP [Catalytic activity/Vol] 99 U/L 45-117 [facility] ALT [Catalytic activity/Vol] 16 U/L 13-56 [facility] CO2 [Moles/Vol] 22.0 mmol/L 21.0-32.0 [facility] Urea nitrogen/Creatinine [Mass ratio] 13.4 mg/mg 10-20 [facility] Laboratory - Hematology and Cell countsOrdered By: Jaci Warren on 09-19-2022 Erythrocyte distribution width (RBC) [Entitic vol] 45.1 fL 35.1-43.9 [facility] Erythrocyte distribution width (RBC) [Ratio] 13.5 % 11.6-14.6 [facility] Immature granulocytes/100 WBC (Bld) 0.500 % 0.0-0.9 [facility] Comment on above: IG% - Immature Granu locytes (promyelocytes, myelocytes and metamyelocytes) > 1% indicates that a LEFT SHIFT is Present. MCH (RBC) [Entitic mass] 28.0 pg 27.0-32.0 [facility] Nucleated RBC/100 WBC (Bld) [Ratio] 0 % 0-5 [facility] MCHC Auto (RBC) [Mass/Vol]Or dered By: Jaci Warren on 09-19-2022 MCHC (RBC) [Mass/Vol] 30.9 g/dL 32-36 [facility] No Panel InformationOrdered By: Jaci Warren on 09-19-2022 Addendum Document Comment . [facility] Comment on above: Protein electrophore sis scan will follow via computer,mail, or maintenance shop technician delivery. Centromere B Antibody <0.2 AI 0.0-0.9 [facility] Endomysial IgA Antibody Negative Negative [facility] Estimated GFR (MDRD) Amer 101 mL/min >60 [facility] Comment on above: GFR Calc Estimated GFR (MDRD) Non-Af Amer 83 mL/min >60 [facility] Comment on above: Non- GFR Calc Immunoglobulin E 11 IU/mL 6-495 [facility] Miscellaneous Test See comment [facility] Comment on above: TEST RESULT LIMITSIB [...] developed and its performance characteristics determined by [facility]. It has not been cleared or approved by the Food and Drug Administration. The FDA has determined that such clearance or approval is not necessary.Atypical pANCA Negative Negative Comments Abnormal Suggestive of Crohn's Disease with the very high risk of aggressive disease behavior(development of strictures or fistulae) ____ [facility] ORIGINAL REPORT ON FILE IN LAB CONTAINS ADDITIONAL TEST SITE INFORMATION. DIE MAKER STAMPING Antibody 0.3 AI 0.0-0.9 [facility] Platelets bldOrdered By: Daija Warren on 09-19-2022 Platelets (Bld) [#/Vol] 264 10*3/uL 150-450 [facility] Serum DNA double strand anti body assay (units/volume)Ordered By: Jaci Warren on 09-19-2022 DNA double strand Ab Qn (S) [IU]/mL 0-9 [facility] Comment on above: Negative <5 Equivoca l 5 - 9 Positive >9 Serum Claudine-1 antibody assay (u nits/volume)Ordered By: Jaci Warren on 09-19-2022 Claudine-1 extractable nuclear Ab Qn (S) <0.2 AI 0.0-0.9 [facility] Serum Scl-70 extractable nuc lear antibody assay (units/volume)Ordered By: Jaci Warren on 09-19-2022 SCL-70 extractable nuclear Ab Qn (S) <0.2 AI 0.0-0.9 [facility] Serum Valero extractable nucl ear antibody detectionOrdered By: Jaci Warren on 09-19-2022 Valero extractable nuclear Ab Ql (S) <0.2 AI 0.0-0.9 [facility] Serum [id number] measu rement by electrophoresisOrdered By: Jaci Warren on 09-19-2022 Alpha 1 globulin Elph [Mass/Vol] 0.3 g/dL 0.0-0.4 [facility] Alpha 1 globulin Elph [Mass/Vol] 0.9 g/dL 0.4-1.0 [facility] Serum classic neutrophil cyt oplasmic antibody assay (units/volume)Ordered By: Jaci Warren on 09-19-2022 Neutrophil cytoplasmic Ab.classic Qn (S) <1:20 titer Neg:<1:20 [facility] Serum globulin measurement ( mass/volume)Ordered By: Jaci Warren on 09-19-2022 Globulin (S) [Mass/Vol] 3.0 g/dL 2.2-3.9 [facility] Serum or plasma C reactive p rotein measurement (mass/volume)Ordered By: Jaci Warren on 09-19-2022 CRP [Mass/Vol] 5.02 mg/L 0.0-3.0 [facility] Comment on above: C-Reactive Protein ( CRP) provides useful information for thediagnosis, therapy and monitoring of inflammatory processesand associated diseases. For the evaluation of Relative Riskfor Cardiovascular Disease, a High Sensitivity CRP (HSCRP)should be ordered. Serum or plasma IgA measurem ent (mass/volume)Ordered By: Jaci Warren on 09-19-2022 IgA [Mass/Vol] 103 mg/dL 87-352 [facility] Serum or plasma IgG measurem ent (mass/volume)Ordered By: Jaci Warren on 09-19-2022 IgG [Mass/Vol] 916 mg/dL [phone] [facility] Serum or plasma IgM measurem ent (mass/volume)Ordered By: Jaci Warren on 09-19-2022 IgM [Mass/Vol] 48 mg/dL 26-217 [facility] Serum or plasma albumin alexis urement (mass/volume)Ordered By: Jaci Warren on 09-19-2022 Albumin [Mass/Vol] 3.7 g/dL 3.2-5.0 [facility] Serum or plasma albumin/glob ulin mass ratioOrdered By: Jaci Warren on 09-19-2022 Albumin/Globulin [Mass ratio] 1.0 {ratio} 0.9-2.4 [facility] Serum or plasma beta globuli n measurement by electrophoresis (mass/volume)Ordered By: Jaci Warren on 09-19-2022 Beta globulin Elph [Mass/Vol] 0.9 g/dL 0.7-1.3 [facility] Serum or plasma calcium alexis urement (mass/volume)Ordered By: Jaci Warren on 09-19-2022 Calcium [Mass/Vol] 9.3 mg/dL 8.5-10.1 [facility] Serum or plasma creatinine m easurement (mass/volume)Ordered By: Jaci Warren on 09-19-2022 Creatinine [Mass/Vol] 0.75 mg/dL 0.55-1.02 [facility] Comment on above: The validity of the calculated GFR & GFRAA in patients over 70 years has not been determined. Clinical correlation is essential. Serum or plasma gamma globul in measurement by electrophoresis (mass/volume)Ordered By: Jaci Warren on 09-19-2022 Gamma globulin Elph [Mass/Vol] 0.8 g/dL 0.4-1.8 [facility] Serum or plasma immunoelectr ophoresis interpretation (nominal result)Ordered By: Jaci Warren on 09-19-2022 Interpretation IEP [Interp] Comment . [facility] Comment on above: No monoclonality det ected. Serum or plasma urea nitroge n measurement (mass/volume)Ordered By: Jaci Warren on 09-19-2022 Urea nitrogen [Mass/Vol] 10 mg/dL 7-18 [facility] Serum perinuclear neutrophil cytoplasmic antibody titer by immunofluorescenceOrdered By: Jaci Warren on 09-19-2022 Neutrophil cytoplasmic Ab.perinuclear IF (S) [Titer] <1:20 titer Neg:<1:20 [facility] Comment on above: The presence of posi tive fluorescence exhibiting P-ANCA orC-ANCA patterns alone is not specific for the diagnosis ofWegener's Granulomatosis (WG) or microscopic polyangiitis.Decisions about treatment should not be based solely onANCA IFA results. The [employer] Consensusrecommends follow up testing of positive sera with both KY-3 and MPO-ANCA enzyme immunoassays. As many as 5% serumsamples are positive only by EIA. Ref. AM J Clin Gsppyn1977;111:507-513. Serum tissue transglutaminas e IgA antibody assay (units/volume)Ordered By: Jaci Warren on 09-19-2022 tTG IgA Qn (S) <2 U/mL 0-3 [facility] Comment on above: Negative 0 - 3 Weak Positive 4 - 10 Positive >10 Tissue Transglutaminase (tTG) has been identified as the endomysial antigen. Studies have demonstr- ated that endomysial IgA antibodies have over 99% specificity for gluten sensitive enteropathy. Thin prep Papanicolaou smear with manual screeningOrdered By: Jaci Warren on 09-19-2022 Thin prep Papanicolaou smear with manual screening 21 U/L 15-37 [facility] Thin prep Papanicolaou smear with manual screening 9 5-15 [facility] Thin prep Papanicolaou smear with manual screening 1.2 0.7-1.7 [facility] Total protein bloodOrdered B y: Jacierika Warren on 09-19-2022 Protein [Mass/Vol] 6.5 g/dL 6.0-8.5 [facility] - Microbiology an d Antimicrobial susceptibilityon 09-12-2022 S. pyogenes Ag IA Ql (Unsp spec) Negative [facility] C-REACTIVE PROTEIN (CRP)on 1 09-17-2021 CRP [Mass/Vol] 0.6 mg/dL <0.9 mg/dL [facility] CBC W Auto Differential pane l (Bld)on 07-17-2022 Basophils (Bld) [#/Vol] 0.08 10*3/uL <0.11 k/uL [facility] Basophils/100 WBC (Bld) 1.3 % [facility] Differential cell count method Nom (Bld) Auto [facility] Eosinophils (Bld) [#/Vol] 0.18 10*3/uL <0.46 k/uL [facility] Eosinophils/100 WBC (Bld) 2.9 % [facility] Erythrocyte distribution width (RBC) [Ratio] 16.4 % High 11.5 - 15.0 % [facility] Hematocrit (Bld) [Volume fraction] 41.4 % 36.0 - 46.0 % [facility] Hemoglobin (Bld) [Mass/Vol] 13.0 g/dL 11.5 - 15.5 g/dL [facility] Immature granulocytes (Bld) [#/Vol] 0.03 10*3/uL <0.10 k/uL [facility] Immature granulocytes/100 WBC (Bld) 0.5 % [facility] Lymphocytes (Bld) [#/Vol] 1.35 10*3/uL 1.00 - 4.00 k/uL [facility] Lymphocytes/100 WBC (Bld) 21.8 % [facility] MCH (RBC) [Entitic mass] 27.1 pg 26.0 - 34.0 pg [facility] MCHC (RBC) [Mass/Vol] 31.4 g/dL 30.5 - 36.0 g/dL [facility] MCV (RBC) [Entitic vol] 86.4 fL 80.0 - 100.0 fL [facility] Monocytes (Bld) [#/Vol] 0.52 10*3/uL <0.87 k/uL [facility] Monocytes/100 WBC (Bld) 8.4 % [facility] Neutrophils (Bld) [#/Vol] 4.03 10*3/uL 1.45 - 7.50 k/uL [facility] Neutrophils/100 WBC (Bld) 65.1 % [facility] Nucleated RBC (Bld) [#/Vol] <0.01 k/uL [facility] Nucleated RBC/100 WBC (Bld) [Ratio] 0.0 /100 WBC [facility] Platelet mean volume (Bld) [Entitic vol] 11.7 fL 9.0 - 12.7 fL [facility] Platelets (Bld) [#/Vol] 238 10*3/uL 150 - 400 k/uL [facility] RBC (Bld) [#/Vol] 4.79 10*6/uL 3.90 - 5.2 0 m/uL [facility] WBC (Bld) [#/Vol] 6.19 10*3/uL 3.70 - 11. 00 k/uL [facility] Comprehensive metabolic 2000 panelon 07-17-2022 Albumin [Mass/Vol] 4.4 g/dL 3.9 - 4.9 g/dL [facility] ALP [Catalytic activity/Vol] 97 U/L 34 - 123 U/L [facility] ALT With P-5'-P [Catalytic activity/Vol] 13 U/L 7 - 38 U/L [facility] Anion gap [Moles/Vol] 12 mmol/L 9 - 18 mmol/L [facility] AST With P-5'-P [Catalytic activity/Vol] 23 U/L 13 - 35 U/L [facility] Bilirubin [Mass/Vol] 0.2 mg/dL 0.2 - 1 .3 mg/dL [facility] Calcium [Mass/Vol] 9.5 mg/dL 8.5 - 10. 2 mg/dL [facility] Chloride [Moles/Vol] 100 mmol/L 97 - 10 5 mmol/L [facility] CO2 [Moles/Vol] 25 mmol/L 22 - 30 mmol/L [facility] Creatinine [Mass/Vol] 0.67 mg/dL 0.58 - 0.96 mg/dL [facility] Estimated Glomerular Filtration Rate 98 mL/min/1.73m >=60 mL/min/1.73m [facility] Glucose [Mass/Vol] 83 mg/dL 74 - 99 mg/dL [facility] Potassium [Moles/Vol] 4.1 mmol/L 3.7 - 5.1 mmol/L [facility] Protein [Mass/Vol] 7.2 g/dL 6.3 - 8.0 g/dL [facility] Sodium [Moles/Vol] 137 mmol/L 136 - 144 mmol/L [facility] Urea nitrogen [Mass/Vol] 8 mg/dL 7 - 21 mg/dL [facility] Laboratory - Microbiology an d Antimicrobial susceptibilityon 07-13-2022 SARS-CoV-2 (COVID-19) RNA CORAL+probe Ql (Unsp spec) Not detected [facility] No Panel Informationon 07-13 Influenza Types A,B Rapid ([facility]) Not detected [facility] DXA-AXIAL SKELETONon 022 [facility] .Auto Diffon 04-04-2022 Basophil, Absolute 0.1 10 3/mcL Normal 0.0-0.2 [facility] ([place] Comment on above: Performed By: #### B MP, ANEU, GFR, ADIFF, CBC #### [address] [address] Basophils/100 WBC (Bld) 1.4 % Normal 0.0-2.5 [facility] ([place] Comment on above: Performed By: #### B MP, ANEU, GFR, ADIFF, CBC #### [address] [address] Eosinophil, Absolute 0.2 10 3/mcL Normal 0.0-0.4 [facility] ([place]) Comment on above: Performed By: #### B MP, ANEU, GFR, ADIFF, CBC #### [address] [address] Eosinophils/100 WBC (Bld) 3.7 % Normal 0.0-7.0 [facility] ([place] Comment on above: Performed By: #### B MP, ANEU, GFR, ADIFF, CBC #### [address] [address] Lymphocyte, Absolute 0.9 10 3/mcL Normal 0.8-3.9 [facility] ([place]) Comment on above: Performed By: #### B MP, ANEU, GFR, ADIFF, CBC #### [address] [address] Lymphocytes/100 WBC (Bld) 13.7 % Normal 10.0-50.0 [facility] ([place]) Comment on above: Performed By: #### B MP, ANEU, GFR, ADIFF, CBC #### [address] [address] Monocyte, Absolute 0.6 10 3/mcL Normal 0.2-1.0 [facility] ([place]) Comment on above: Performed By: #### B MP, ANEU, GFR, ADIFF, CBC #### [address] [address] Monocytes/100 WBC (Bld) 10.2 % Normal 1.7-13.0 [facility] ([place] Comment on above: Performed By: #### B MP, ANEU, GFR, ADIFF, CBC #### [address] [address] Neutrophils/100 WBC (Bld) 71.0 % Normal 37.0-80.0 [facility] ([place] Comment on above: Performed By: #### B MP, ANEU, GFR, ADIFF, CBC #### [address] [address] .NEUABSon 04-04-2022 Neutrophil, Absolute 4.5 10 3/mcL Normal 2.9-6.2 [facility] ([place]) Comment on above: Performed By: #### B MP, ANEU, GFR, ADIFF, CBC #### [address] [address] CBCon 04-04-2022 Erythrocyte distribution width (RBC) [Ratio] 15.2 % High 11.5-14.5 [facility] ([place] Comment on above: Performed By: #### B MP, ANEU, GFR, ADIFF, CBC #### [place] [address] Hematocrit (Bld) [Volume fraction] 40.3 % Normal 37.0-47.0 [facility] ([place] Comment on above: Performed By: #### B MP, ANEU, GFR, ADIFF, CBC #### [place] [address] Hgb 13.5 G/dL Normal 12.0-16.0 [facility] ([place] Comment on above: Performed By: #### B MP, ANEU, GFR, ADIFF, CBC #### [place] [address] MCH (RBC) [Entitic mass] 27.5 pg Normal 27.0-31.2 [facility] ([place] Comment on above: Performed By: #### B MP, ANEU, GFR, ADIFF, CBC #### [place] [address] MCHC 33.5 G/dL Normal 33.0-37.0 [facility] ([place] Comment on above: Performed By: #### B MP, ANEU, GFR, ADIFF, CBC #### [place] [address] MCV (RBC) [Entitic vol] 82.1 fL Normal 80.0-94.0 [facility] ([place] Comment on above: Performed By: #### B MP, ANEU, GFR, ADIFF, CBC #### [place] [address] Platelet 192 10 3/mcL Normal 130-400 [facility] ([place] Comment on above: Performed By: #### B MP, ANEU, GFR, ADIFF, CBC #### [place] [address] Platelet mean volume (Bld) [Entitic vol] 9.7 fL Normal 7.4-10.4 [facility] ([place] Comment on above: Performed By: #### B MP, ANEU, GFR, ADIFF, CBC #### [place] [address] RBC 4.91 10 6/mcL Normal 4.20-5.40 [facility] ([place] Comment on above: Performed By: #### B MP, ANEU, GFR, ADIFF, CBC #### [place] [address] WBC 6.3 10 3/mcL Normal 4.6-10.8 [facility] ([place] Comment on above: Performed By: #### B MP, ANEU, GFR, ADIFF, CBC #### [place] [address] CRPon 04-04-2022 CRP [Mass/Vol] mg/L Normal 0.0-0.9 [facility] ([place] Comment on above: Performed By: #### B MP, ANEU, GFR, ADIFF, CBC #### [place] [address] ESRon 04-04-2022 Erythrocyte Sed Rate 19 mm/hr Normal 0-30 [facility] ([place] Comment on above: Performed By: #### B MP, ANEU, GFR, ADIFF, CBC #### [place] [address] NM BONE IMAGING WHOLE BODYon 03-29-2022 NM [...] Sign Date: 03/29/2022 3:10:43 PM [facility] BONE IMAGING WHOLE BODYon 03-20-2022 [place] BONE [...] 03/20/2022 6:05:15 PM Ordering Provider: BELLA Prabhakar [facility] ([place] C-REACTIVE PROTEIN (CRP)on 0 03-05-2022 CRP [Mass/Vol] 0.3 mg/dL <0.9 mg/dL [facility] CBC W Auto Differential pane l (Bld)on 03-05-2022 Abs Immature Gran <0.10 k/uL [facility] Basophils (Bld) [#/Vol] 0.11 10*3/uL High <0.11 k/uL [facility] Basophils/100 WBC (Bld) 1.8 % [facility] Differential cell count method Nom (Bld) Auto [facility] Eosinophils (Bld) [#/Vol] 0.30 10*3/uL <0.46 k/uL [facility] Eosinophils/100 WBC (Bld) 4.8 % [facility] Erythrocyte distribution width (RBC) [Ratio] 15.2 % High 11.5 - 15.0 % [facility] Hematocrit (Bld) [Volume fraction] 40.0 % 36.0 - 46.0 % [facility] Hemoglobin (Bld) [Mass/Vol] 12.4 g/dL 11.5 - 15.5 g/dL [facility] Immature Gran % 0.3 % [facility] Lymphocytes (Bld) [#/Vol] 1.39 10*3/uL 1.00 - 4.00 k/uL [facility] Lymphocytes/100 WBC (Bld) 22.2 % [facility] MCH (RBC) [Entitic mass] 26.7 pg 26.0 - 34.0 pg [facility] MCHC (RBC) [Mass/Vol] 31.0 g/dL 30.5 - 36.0 g/dL [facility] MCV (RBC) [Entitic vol] 86.2 fL 80.0 - 100.0 fL [facility] Monocytes (Bld) [#/Vol] 0.55 10*3/uL <0.87 k/uL [facility] Monocytes/100 WBC (Bld) 8.8 % [facility] Neutrophils (Bld) [#/Vol] 3.88 10*3/uL 1.45 - 7.50 k/uL [facility] Neutrophils/100 WBC (Bld) 62.1 % [facility] Nucleated RBC (Bld) [#/Vol] <0.01 k/uL [facility] Nucleated RBC/100 WBC (Bld) [Ratio] 0.0 /100 WBC [facility] Platelet mean volume (Bld) [Entitic vol] 11.9 fL 9.0 - 12.7 fL [facility] Platelets (Bld) [#/Vol] 205 10*3/uL 150 - 400 k/uL [facility] RBC (Bld) [#/Vol] 4.64 10*6/uL 3.90 - 5.2 0 m/uL [facility] WBC (Bld) [#/Vol] 6.25 10*3/uL 3.70 - 11. 00 k/uL [facility] Comprehensive metabolic 2000 panelon 03-05-2022 Albumin [Mass/Vol] 4.2 g/dL 3.9 - 4.9 g/dL [facility] ALP [Catalytic activity/Vol] 98 U/L 34 - 123 U/L [facility] ALT With P-5'-P [Catalytic activity/Vol] 12 U/L 7 - 38 U/L [facility] Anion gap [Moles/Vol] 10 mmol/L 9 - 18 mmol/L [facility] AST With P-5'-P [Catalytic activity/Vol] 22 U/L 13 - 35 U/L [facility] Bilirubin [Mass/Vol] 0.2 mg/dL 0.2 - 1 .3 mg/dL [facility] Calcium [Mass/Vol] 8.8 mg/dL 8.5 - 10. 2 mg/dL [facility] Chloride [Moles/Vol] 105 mmol/L 97 - 10 5 mmol/L [facility] CO2 [Moles/Vol] 23 mmol/L 22 - 30 mmol/L [facility] Creatinine [Mass/Vol] 0.66 mg/dL 0.58 - 0.96 mg/dL [facility] Estimated Glomerular Filtration Rate 99 mL/min/1.73m >=60 mL/min/1.73m [facility] Glucose [Mass/Vol] 88 mg/dL 74 - 99 mg/dL [facility] Potassium [Moles/Vol] 3.8 mmol/L 3.7 - 5.1 mmol/L [facility] Protein [Mass/Vol] 6.7 g/dL 6.3 - 8.0 g/dL [facility] Sodium [Moles/Vol] 138 mmol/L 136 - 144 mmol/L [facility] Urea nitrogen [Mass/Vol] 9 mg/dL 7 - 21 mg/dL [facility] Final Surgical Pathology Rep natalio 09-01-2021 Final Surgical Pathology Report . Pathology Reports Accession: Collected Date/Time: Received Date/Time: Pathologist: [id number] 08/29/2021 16:24 EST 08/30/2021 07:37 EST DO [...] Electronically Signed by Pathology Report verified by [facility] Electronically signed by JOAN BONILLA DO Sign out Date: 09/01/2021 08:04 Performing Lab: [id number] [place] [address] Normal [facility] ([place]) .Auto Diffon 08-31-2021 Basophil, Absolute 0.10 10 3/mcL Normal 0.00-0.27 [facility] ([place]) Comment on above: Performed By: #### B MP, ANEU, GFR, ADIFF, CBC #### [address] [address] Basophils/100 WBC (Bld) 0.7 % Normal 0.0-2.5 [facility] ([place] Comment on above: Performed By: #### B MP, ANEU, GFR, ADIFF, CBC #### [address] [address] Eosinophil, Absolute 0.10 10 3/mcL Normal 0.00-0.65 [facility] ([place] Comment on above: Performed By: #### B MP, ANEU, GFR, ADIFF, CBC #### [address] [address] Eosinophils/100 WBC (Bld) 1.2 % Normal 0.0-6.0 [facility] ([place] Comment on above: Performed By: #### B MP, ANEU, GFR, ADIFF, CBC #### [address] [address] Lymphocyte, Absolute 0.80 10 3/mcL Low 0.90-4.32 [facility] ([place] Comment on above: Performed By: #### B MP, ANEU, GFR, ADIFF, CBC #### [address] [address] Lymphocytes/100 WBC (Bld) 8.5 % Low 20.0-40.0 [facility] ([place] Comment on above: Performed By: #### B MP, ANEU, GFR, ADIFF, CBC #### [address] [address] Monocyte, Absolute 1.00 10 3/mcL Normal 0.09-1.40 [facility] ([place] Comment on above: Performed By: #### B MP, ANEU, GFR, ADIFF, CBC #### [address] [address] Monocytes/100 WBC (Bld) 10.3 % Normal 2.0-13.0 [facility] ([place] Comment on above: Performed By: #### B MP, ANEU, GFR, ADIFF, CBC #### [address] [address] Neutrophils/100 WBC (Bld) 79.3 % High 50.0-75.0 [facility] ([place] Comment on above: Performed By: #### B MP, ANEU, GFR, ADIFF, CBC #### [address] [address] .GFRon 08-31-2021 GFR >60 Normal [facility] ([place] Comment on above: Result Comment: GFR Population [...] B MP, ANEU, GFR, ADIFF, CBC #### [address] [address] GFR Non- >60 Normal [facility] ([place] Comment on above: Result Comment: GFR Population [...] B MP, ANEU, GFR, ADIFF, CBC #### [address] [address] .NEUABSon 08-31-2021 Neutrophil, Absolute 7.40 10 3/mcL Normal 2.25-8.10 [facility] ([place] Comment on above: Performed By: #### B MP, ANEU, GFR, ADIFF, CBC #### [address] [address] BMPon 08-31-2021 BUN/Creatinine Ratio 18.4 ratio Normal 10.0-22.0 [facility] ([place] Comment on above: Performed By: #### B MP, ANEU, GFR, ADIFF, CBC #### [address] [address] Calcium [Mass/Vol] 9.2 mg/dL Normal 8.7-10.4 [facility] ([place] Comment on above: Result Comment: No te - New Reference Range in effect 20 Performed By: #### B MP, ANEU, GFR, ADIFF, CBC #### [address] [address] Chloride [Moles/Vol] 106 mmol/L Normal 98-110 [facility] ([place] Comment on above: Performed By: #### B MP, ANEU, GFR, ADIFF, CBC #### [address] [address] CO2 [Moles/Vol] 24 mmol/L Normal 22-32 [facility] ([place] Comment on above: Performed By: #### B MP, ANEU, GFR, ADIFF, CBC #### [place] [id number] Creatinine [Mass/Vol] 0.76 mg/dL Normal 0.50-1.20 [facility] ([place] Comment on above: Performed By: #### B MP, ANEU, GFR, ADIFF, CBC #### [address] [address] Electrolyte Balance 4.0 mEq/L Normal 4.0-15.0 [facility] ([place] Comment on above: Performed By: #### B MP, ANEU, GFR, ADIFF, CBC #### [address] [address] Glucose [Mass/Vol] 123 mg/dL High 82-115 [facility] ([place] Comment on above: Performed By: #### B MP, ANEU, GFR, ADIFF, CBC #### [address] [address] Potassium [Moles/Vol] 4.0 mmol/L Normal 3.5-5.0 [facility] ([place] Comment on above: Result Comment: Spec imen slightly hemolyzed. Performed By: #### B MP, ANEU, GFR, ADIFF, CBC #### [place] [address] Sodium [Moles/Vol] 134 mmol/L Low 136-145 [facility] ([place] Comment on above: Performed By: #### B MP, ANEU, GFR, ADIFF, CBC #### [place] [address] Urea nitrogen [Mass/Vol] 14.0 mg/dL Normal 8.0-22.0 [facility] ([place] Comment on above: Performed By: #### B MP, ANEU, GFR, ADIFF, CBC #### [place] [address] CBCon 08-31-2021 Erythrocyte distribution width (RBC) [Ratio] 14.2 % Normal 11.5-15.5 [facility] ([place] Comment on above: Performed By: #### B MP, ANEU, GFR, ADIFF, CBC #### [place] [address] Hematocrit (Bld) [Volume fraction] 32.4 % Low 34.0-46.0 [facility] ([place] Comment on above: Performed By: #### B MP, ANEU, GFR, ADIFF, CBC #### [place] [address] Hgb 10.7 G/dL Low 12.0-16.0 [facility] ([place] Comment on above: Performed By: #### B MP, ANEU, GFR, ADIFF, CBC #### [place] [address] MCH (RBC) [Entitic mass] 28.0 pg Normal 27.0-33.0 [facility] ([place] Comment on above: Performed By: #### B MP, ANEU, GFR, ADIFF, CBC #### [place] [address] MCHC 33.1 G/dL Normal 32.0-36.0 [facility] ([place] Comment on above: Performed By: #### B MP, ANEU, GFR, ADIFF, CBC #### [place] [address] MCV (RBC) [Entitic vol] 84.6 fL Normal 80.0-99.0 [facility] ([place] Comment on above: Performed By: #### B MP, ANEU, GFR, ADIFF, CBC #### [place] [address] Platelet 170 10 3/mcL Normal 150-450 [facility] ([place] Comment on above: Performed By: #### B MP, ANEU, GFR, ADIFF, CBC #### [place] [address] Platelet mean volume (Bld) [Entitic vol] 9.5 fL Normal 6.6-10.5 [facility] ([place] Comment on above: Performed By: #### B MP, ANEU, GFR, ADIFF, CBC #### [place] [address] RBC 3.83 10 6/mcL Low 4.10-5.30 [facility] ([place] Comment on above: Performed By: #### B MP, ANEU, GFR, ADIFF, CBC #### [place] [address] WBC 9.30 10 3/mcL Normal 4.50-10.80 [facility] ([place] Comment on above: Performed By: #### B MP, ANEU, GFR, ADIFF, CBC #### [place] [address] CVFLURVon 08-31-2021 Date of Onset [id number] Invalid Interpretation Code [facility] ([place] Comment on above: Performed By: #### C VFLURV #### [place] [address] 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 Normal [facility] ([place]) Comment on above: Performed By: #### C VFLURV #### [place] [address] First Test Unknown Normal [facility] ([place] Comment on above: Performed By: #### C VFLURV #### [place] [address] FLU A PCR Negative Normal Negative [facility] ([place] Comment on above: Result Comment: [place] [id number] Performed By: #### C VFLURV #### [place] [address] FLU B PCR Negative Normal Negative [facility] ([place] Comment on above: Result Comment: [place] [id number] Performed By: #### C VFLURV #### [place] [address] Hospitalized Yes [facility] [place] Comment on above: Performed By: #### C VFLURV #### [place] [address] ICU No [facility] [place] Comment on above: Performed By: #### C VFLURV #### [place] [address] Not [facility] ([place] Comment on above: Performed By: #### C VFLURV #### [place] [address] Resides in Congregate Care Setting Unknown [facility] ([place] Comment on above: Performed By: #### C VFLURV #### [place] [address] RSV PCR Negative Normal Negative [facility] ([place] Comment on above: Result [place]: [place] [id number] Performed By: #### C VFLURV #### [place] [address] SARS-CoV-2 (COVID-19) RNA CORAL+probe Ql (Unsp spec) Negative Normal Negative [facility] ([place] Comment on above: Result Comment: [place] [id number] This test has been authorized by FDA [...] results. Performed By: #### C VFLURV #### [place] [address] Symptomatic as Defined by [facility] Unknown Normal [facility] ([place] Comment on above: Performed By: #### C VFLURV #### [place] [address] LABORATORYOrdered By: Urmila Parisi on 08-31-2021 Date [...] Comment on above: Result [place]: [place] [id number] FLU B PCR Negative 5 (08/31/21 4:36 PM) Invalid Interpretation Code Negative [facility] Comment on above: Result Comment: [place] [id number] Hospitalized Yes (08/31/21 4:36 PM) Invalid Interpretation [...] Comment on above: Result Comment: [place] [id number] SARS-CoV-2 (COVID-19) RNA CORAL+probe Ql (Unsp spec) Negative 3 (08/31/21 4:36 PM) Invalid Interpretation Code Negative [facility] SS Comment on above: Result [place]: [place] [id number] Symptomatic as Defined by CDC Unknown (08/31/21 [...] Basophil, Absolute 0.00 10 3/mcL Normal 0.00-0.27 [facility] ([place] Comment on above: Performed By: #### B MP, ANEU, GFR, ADIFF, CBC #### [address] [address] Basophils/100 WBC (Bld) 0.2 % Normal 0.0-2.5 [facility] ([place] Comment on above: Performed By: #### B MP, ANEU, GFR, ADIFF, CBC #### [address] [address] Eosinophil, Absolute 0.00 10 3/mcL Normal 0.00-0.65 [facility] ([place] Comment on above: Performed By: #### B MP, ANEU, GFR, ADIFF, CBC #### [address] [address] Eosinophils/100 WBC (Bld) 0.0 % Normal 0.0-6.0 [facility] ([place] Comment on above: Performed By: #### B MP, ANEU, GFR, ADIFF, CBC #### [address] [address] Lymphocyte, Absolute 0.70 10 3/mcL Low 0.90-4.32 [facility] ([place] Comment on above: Performed By: #### B MP, ANEU, GFR, ADIFF, CBC #### [address] [address] Lymphocytes/100 WBC (Bld) 7.2 % Low 20.0-40.0 [facility] ([place] Comment on above: Performed By: #### B MP, ANEU, GFR, ADIFF, CBC #### [address] [address] Monocyte, Absolute 1.10 10 3/mcL Normal 0.09-1.40 [facility] ([place] Comment on above: Performed By: #### B MP, ANEU, GFR, ADIFF, CBC #### [address] [address] Monocytes/100 WBC (Bld) 11.6 % Normal 2.0-13.0 [facility] ([place] Comment on above: Performed By: #### B MP, ANEU, GFR, ADIFF, CBC #### [address] [address] Neutrophils/100 WBC (Bld) 81.0 % High 50.0-75.0 [facility] ([place] Comment on above: Performed By: #### B MP, ANEU, GFR, ADIFF, CBC #### [address] [address] .GFRon 08-30-2021 GFR >60 Normal [facility] ([place] Comment on above: Result Comment: GFR Population [...] B MP, ANEU, GFR, ADIFF, CBC #### [address] [address] GFR Non- >60 Normal [facility] ([place] Comment on above: Result Comment: GFR Population [...] B MP, ANEU, GFR, ADIFF, CBC #### [address] [address] .NEUABSon 08-30-2021 Neutrophil, Absolute 7.50 10 3/mcL Normal 2.25-8.10 [facility] ([place] Comment on above: Performed By: #### B MP, ANEU, GFR, ADIFF, CBC #### [address] [address] BMPon 08-30-2021 BUN/Creatinine Ratio 16.7 ratio Normal 10.0-22.0 [facility] ([place] Comment on above: Performed By: #### B MP, ANEU, GFR, ADIFF, CBC #### [address] [address] Calcium [Mass/Vol] 8.4 mg/dL Low 8.7-10.4 [facility] ([place] Comment on above: Result Comment: No te - New Reference Range in effect 20 Performed By: #### B MP, ANEU, GFR, ADIFF, CBC #### [address] [address] Chloride [Moles/Vol] 111 mmol/L High 98-110 [facility] ([place] Comment on above: Performed By: #### B MP, ANEU, GFR, ADIFF, CBC #### [address] [address] CO2 [Moles/Vol] 26 mmol/L Normal 22-32 [facility] ([place] Comment on above: Performed By: #### B MP, ANEU, GFR, ADIFF, CBC #### [place] [address] Creatinine [Mass/Vol] 0.54 mg/dL Normal 0.50-1.20 [facility] ([place] Comment on above: Performed By: #### B MP, ANEU, GFR, ADIFF, CBC #### [place] [address] Electrolyte Balance 0.0 mEq/L Low 4.0-15.0 [facility] ([place] Comment on above: Performed By: #### B MP, ANEU, GFR, ADIFF, CBC #### [place] [address] Glucose [Mass/Vol] 106 mg/dL Normal 82-115 [facility] ([place] Comment on above: Performed By: #### B MP, ANEU, GFR, ADIFF, CBC #### [place] [address] Potassium [Moles/Vol] 4.0 mmol/L Normal 3.5-5.0 [facility] ([place] Comment on above: Performed By: #### B MP, ANEU, GFR, ADIFF, CBC #### [place] [address] Sodium [Moles/Vol] 137 mmol/L Normal 136-145 [facility] ([place] Comment on above: Performed By: #### B MP, ANEU, GFR, ADIFF, CBC #### [place] [address] Urea nitrogen [Mass/Vol] 9.0 mg/dL Normal 8.0-22.0 [facility] ([place]) Comment on above: Performed By: #### B MP, ANEU, GFR, ADIFF, CBC #### [place] [address] CBCon 08-30-2021 Erythrocyte distribution width (RBC) [Ratio] 13.9 % Normal 11.5-15.5 [facility] ([place]) Comment on above: Performed By: #### B MP, ANEU, GFR, ADIFF, CBC #### [place] [id number] Hematocrit (Bld) [Volume fraction] 35.0 % Normal 34.0-46.0 [facility] ([place] Comment on above: Performed By: #### B MP, ANEU, GFR, ADIFF, CBC #### [place] [address] Hgb 11.5 G/dL Low 12.0-16.0 [facility] ([place] Comment on above: Performed By: #### B MP, ANEU, GFR, ADIFF, CBC #### [place] [address] MCH (RBC) [Entitic mass] 27.8 pg Normal 27.0-33.0 [facility] ([place] Comment on above: Performed By: #### B MP, ANEU, GFR, ADIFF, CBC #### [place] [address] MCHC 32.7 G/dL Normal 32.0-36.0 [facility] ([place] Comment on above: Performed By: #### B MP, ANEU, GFR, ADIFF, CBC #### [place] [address] MCV (RBC) [Entitic vol] 85.1 fL Normal 80.0-99.0 [facility] ([place]) Comment on above: Performed By: #### B MP, ANEU, GFR, ADIFF, CBC #### [place] [address] Platelet 193 10 3/mcL Normal 150-450 [facility] ([place]) Comment on above: Performed By: #### B MP, ANEU, GFR, ADIFF, CBC #### [place] [address] Platelet mean volume (Bld) [Entitic vol] 9.6 fL Normal 6.6-10.5 [facility] ([place]) Comment on above: Performed By: #### B MP, ANEU, GFR, ADIFF, CBC #### [place] [address] RBC 4.12 10 6/mcL Normal 4.10-5.30 [facility] ([place]) Comment on above: Performed By: #### B MP, ANEU, GFR, ADIFF, CBC #### [address] [address] WBC 9.20 10 3/mcL Normal 4.50-10.80 [facility] ([place]) Comment on above: Performed By: #### B MP, ANEU, GFR, ADIFF, CBC #### [address] [address] LABORATORYOrdered By: SYSTEM SYSTEM on 08-30-2021 Basophils [...] Basophil, Absolute 0.10 10 3/mcL Normal 0.00-0.27 [facility] ([place]) Comment on above: Performed By: #### B MP, ANEU, GFR, ADIFF, CBC #### [address] [address] Basophils/100 WBC (Bld) 0.9 % Normal 0.0-2.5 [facility] ([place]) Comment on above: Performed By: #### B MP, ANEU, GFR, ADIFF, CBC #### [address] [address] Eosinophil, Absolute 0.00 10 3/mcL Normal 0.00-0.65 [facility] ([place]) Comment on above: Performed By: #### B MP, ANEU, GFR, ADIFF, CBC #### [address] [address] Eosinophils/100 WBC (Bld) 0.1 % Normal 0.0-6.0 [facility] ([place]) Comment on above: Performed By: #### B MP, ANEU, GFR, ADIFF, CBC #### [address] [address] Lymphocyte, Absolute 0.50 10 3/mcL Low 0.90-4.32 [facility] ([place]) Comment on above: Performed By: #### B MP, ANEU, GFR, ADIFF, CBC #### [address] [address] Lymphocytes/100 WBC (Bld) 4.9 % Low 20.0-40.0 [facility] ([place]) Comment on above: Performed By: #### B MP, ANEU, GFR, ADIFF, CBC #### [address] [address] Monocyte, Absolute 0.50 10 3/mcL Normal 0.09-1.40 [facility] ([place]) Comment on above: Performed By: #### B MP, ANEU, GFR, ADIFF, CBC #### [address] [address] Monocytes/100 WBC (Bld) 4.8 % Normal 2.0-13.0 [facility] ([place]) Comment on above: Performed By: #### B MP, ANEU, GFR, ADIFF, CBC #### [address] [address] Neutrophils/100 WBC (Bld) 89.3 % High 50.0-75.0 [facility] ([place]) Comment on above: Performed By: #### B MP, ANEU, GFR, ADIFF, CBC #### [address] [address] .GFRon 08-29-2021 GFR >60 Normal [facility] ([place]) Comment on above: Result Comment: GFR Population [...] B MP, ANEU, GFR, ADIFF, CBC #### [address] [address] GFR Non- >60 Normal [facility] ([place]) Comment on above: Result Comment: GFR Population [...] B MP, ANEU, GFR, ADIFF, CBC #### [address] [address] .NEUABSon 08-29-2021 Neutrophil, Absolute 9.00 10 3/mcL High 2.25-8.10 [facility] ([place]) Comment on above: Performed By: #### B MP, ANEU, GFR, ADIFF, CBC #### [place] [address] ABO/Rh (Gel)on 08-29-2021 ABO/Rh Interp AB POS Invalid Interpretation Code [facility] ([place]) Comment on above: Performed By: #### B MP, ANEU, GFR, ADIFF, CBC #### [place] [address] ABS (Gel)on 08-29-2021 ABSC Interp (Gel) Negative Normal [facility] ([place]) Comment on above: Performed By: #### B MP, ANEU, GFR, ADIFF, CBC #### [place] [id number] CBCon 08-29-2021 Erythrocyte distribution width (RBC) [Ratio] 14.2 % Normal 11.5-15.5 [facility] ([place] Comment on above: Performed By: #### B MP, ANEU, GFR, ADIFF, CBC #### [place] [address] Hematocrit (Bld) [Volume fraction] 42.5 % Normal 34.0-46.0 [facility] ([place] Comment on above: Performed By: #### B MP, ANEU, GFR, ADIFF, CBC #### [place] [address] Hgb 13.7 G/dL Normal 12.0-16.0 [facility] ([place] Comment on above: Performed By: #### B MP, ANEU, GFR, ADIFF, CBC #### [place] [address] MCH (RBC) [Entitic mass] 27.4 pg Normal 27.0-33.0 [facility] ([place] Comment on above: Performed By: #### B MP, ANEU, GFR, ADIFF, CBC #### [place] [address] MCHC 32.1 G/dL Normal 32.0-36.0 [facility] ([place] Comment on above: Performed By: #### B MP, ANEU, GFR, ADIFF, CBC #### [place] [address] MCV (RBC) [Entitic vol] 85.3 fL Normal 80.0-99.0 [facility] ([place] Comment on above: Performed By: #### B MP, ANEU, GFR, ADIFF, CBC #### [place] [address] Platelet 211 10 3/mcL Normal 150-450 [facility] ([place] Comment on above: Performed By: #### B MP, ANEU, GFR, ADIFF, CBC #### [place] [address] Platelet mean volume (Bld) [Entitic vol] 9.6 fL Normal 6.6-10.5 [facility] ([place]) Comment on above: Performed By: #### B MP, ANEU, GFR, ADIFF, CBC #### [place] [address] RBC 4.99 10 6/mcL Normal 4.10-5.30 [facility] ([place] Comment on above: Performed By: #### B MP, ANEU, GFR, ADIFF, CBC #### [place] [id number] WBC 10.10 10 3/mcL Normal 4.50-10.80 [facility] ([place]) Comment on above: Performed By: #### B MP, ANEU, GFR, ADIFF, CBC #### [place] [id number] CMPon 08-29-2021 Albumin Level 3.1 G/dL Low 3.2-4.8 [facility] ([place]) Comment on above: Performed By: #### B MP, ANEU, GFR, ADIFF, CBC #### [place] [address] Albumin/Globulin [Mass ratio] 1.0 {ratio} Normal 0.9-1.6 [facility] ([place]) Comment on above: Performed By: #### B MP, ANEU, GFR, ADIFF, CBC #### [place] [address] ALP [Catalytic activity/Vol] 130 U/L High 38-126 [facility] ([place]) Comment on above: Performed By: #### B MP, ANEU, GFR, ADIFF, CBC #### [place] [address] ALT [Catalytic activity/Vol] 14 U/L Normal 10-49 [facility] ([place]) Comment on above: Performed By: #### B MP, ANEU, GFR, ADIFF, CBC #### [place] [id number] AST [Catalytic activity/Vol] 21 U/L Normal 8-34 [facility] ([place]) Comment on above: Performed By: #### B MP, ANEU, GFR, ADIFF, CBC #### [place] [address] Bili Total 0.30 mg/dL Normal 0.20-1.20 [facility] ([place]) Comment on above: Result Comment: Use of this assay is not recommended for patients undergoing treatment with eltrombopag due to the potential for falsely elevated results. Performed By: #### B MP, ANEU, GFR, ADIFF, CBC #### [place] [address] BUN/Creatinine Ratio 18.0 ratio Normal 10.0-22.0 [facility] ([place]) Comment on above: Performed By: #### B MP, ANEU, GFR, ADIFF, CBC #### [place] [id number] Calcium [Mass/Vol] 8.2 mg/dL Low 8.7-10.4 [facility] ([place]) Comment on above: Result Comment: No te - New Reference Range in effect 20 Performed By: #### B MP, ANEU, GFR, ADIFF, CBC #### [place] [address] Chloride [Moles/Vol] 110 mmol/L Normal 98-110 [facility] ([place]) Comment on above: Performed By: #### B MP, ANEU, GFR, ADIFF, CBC #### [place] [address] CO2 [Moles/Vol] 19 mmol/L Low 22-32 [facility] ([place]) Comment on above: Performed By: #### B MP, ANEU, GFR, ADIFF, CBC #### [place] [address] Creatinine [Mass/Vol] 0.50 mg/dL Normal 0.50-1.20 [facility] ([place]) Comment on above: Performed By: #### B MP, ANEU, GFR, ADIFF, CBC #### [place] [address] Electrolyte Balance 5.0 mEq/L Normal 4.0-15.0 [facility] ([place]) Comment on above: Performed By: #### B MP, ANEU, GFR, ADIFF, CBC #### [place] [id number] Globulin 3.1 G/dL Normal 1.5-3.8 [facility] ([place]) Comment on above: Performed By: #### B MP, ANEU, GFR, ADIFF, CBC #### [place] [id number] Glucose [Mass/Vol] 146 mg/dL High 82-115 [facility] ([place]) Comment on above: Performed By: #### B MP, ANEU, GFR, ADIFF, CBC #### [address] [address] Potassium [Moles/Vol] 4.2 mmol/L Normal 3.5-5.0 [facility] ([place]) Comment on above: Result Comment: Spec imen slightly hemolyzed. Performed By: #### B MP, ANEU, GFR, ADIFF, CBC #### [address] [address] Sodium [Moles/Vol] 134 mmol/L Low 136-145 [facility] ([place]) Comment on above: Performed By: #### B MP, ANEU, GFR, ADIFF, CBC #### [address] [address] Total Protein 6.2 G/dL Normal 5.7-8.2 [facility] ([place]) Comment on above: Result Comment: No te - New Reference Range in effect 20 Performed By: #### B MP, ANEU, GFR, ADIFF, CBC #### [address] [address] Urea nitrogen [Mass/Vol] 9.0 mg/dL Normal 8.0-22.0 [facility] ([place] Comment on above: Performed By: #### B MP, ANEU, GFR, ADIFF, CBC #### [address] [address] LABORATORYOrdered By: Latoya Castellon on 08-29-2021 ABO and Rh group Nom (Bld) Blood group AB Rh(D) positive Invalid Interpretation Code AH BB Auto SS Blood group antibody screen Ql NEG (08/29/21 1:33 AM) Invalid Interpretation Code AH BB Auto SS LABORATORYOrdered By: Linquet SYSTEM on 08-29-2021 Albumin BCP dye [Mass/Vol] [...] 08/28/2021 11:08:21 PM Ordering Provider: NASREEN REYNA[facility] ([place]) XR FEMUR MINIMUM 2 VIEWS LEF Ton [...] 08/28/2021 11:09:16 PM Ordering Provider: NASREEN REYNAGA [facility] ([place] XR HIP LEFT W/PELVIS 4 VIEWS on [...] 08/29/2021 6:32:10 PM Ordering Provider: BELLA GILLESPIE [facility]) XR PELVIS 1 OR 2 VIEWSon XR [...] 08/28/2021 11:10:03 PM Ordering Provider: NASREEN REYNAGA [facility]) XR Chest PA and Lateralon IMPRESSION: Chronic interstitial lung changes with increased nodular bandlike density in the left mid lung which could represent mucous plugging or airways inflammation area of previous bronchiectasis and scarring. Otherwise, lungs are stable and clear. Pre Owned Sales Manager: SABINO Transcribe Date/Time: May 01 2021 2:32P Dictated by : BETSEY DILLON MD This examination was interpreted and the report reviewed and electronically signed by: BETSEY DILLON MD on May 01 2021 2:37PM [facility] DIVISION OF RADIOLOGY * * [...] structures are intact DIVISION OF RADIOLOGY Provider, [facility] - 05/01/2021 * * *Final Report* [...] scarring. Otherwise, lungs are stable and clear. Pre Owned Sales Manager: SABINO Transcribe Date/Time: May 01 2021 2:32P Dictated by : BETSEY DILLON MD This examination was interpreted and the report reviewed and electronically signed by: BETSEY DILLON MD on May 01 2021 2:37PM EST [facility] Radiology Study observation (narrative) [facility] XR Chest PA and LateralOrder ed By: [facility] Provider on 05-01-2021 [facility] XR KNEE GENERAL 4V AP BOTH/P A BOTH/LAT/MERC RTon 02-08-2021 [facility] BD DXA - AXIAL SKELETONon BD DXA - AXIAL SKELETON Final Report DATE OF EXAM: May 10 2020 3:56PM AWX 0804 - BD DXA - AXIAL SKELETON / PROCEDURE REASON: Osteoporosis, unspecified osteoporosis type, unspecified pathological fracture p Physician Interpretation EXAM TITLE: BONE MINERAL DENSITOMETRY COMPARISON:None CLINICAL INDICATION/HISTORY: Postmenopausal TECHNIQUE: DXA [employer] v.13.4 examination was performed on the lumbar [...] at high risk for accelerated bone loss). Pre Owned Sales Manager: SABINO Transcribe Date/Time: May 11 2020 1:27P Dictated by : AMENA LESTER MD This examination was interpreted and the report reviewed and electronically signed by: AMENA LESTER MD on May 11 2020 1:28PM EST Normal [facility] ANES Margaret 10-02-2019 ANES POST HNO ID: [id number] Author: Nilam Lu Service: Anesthesiology Author Type: [...] 02, 2019 TIME: 4:55 PM PAGER/CONTACT #: [phone] [facility] ANES PREOPon 10-02-2019 ANES PREOP HNO ID: [id number] Author: Nilam Lu Service: Anesthesiology Author Type: [...] Involving Multiple Sites With Positive Rheumatoid Factor ([facility]) Vitreous Floaters of Both Eyes [...] Stenosis Chronic Diastolic Chf (Congestive Heart Failure) ([facility]) Copd (Chronic Obstructive Pulmonary Disease) ([facility]) Tear of Medial Meniscus of Right Knee PAST MEDICAL HISTORY Diagnosis Date - Asthma - Homer lesion, acute 01/30/2019 - Carotid artery disease ([facility]) - COPD (chronic obstructive pulmonary disease) ([facility]) - Depression - Diverticulosis - Fibromyalgia - Fibromyalgia - GERD (gastroesophageal reflux disease) - GI bleed 02/2019 - Hiatal hernia - Hyperlipidemia - Hypertension - Insomnia - Iron deficiency anemia - Osteoarthritis - Osteoporosis - Piriformis syndrome - PVC's (premature ventricular contractions) - Rheumatoid arthritis ([facility]) - Sjogren's disease ([facility]) - Vitamin D deficiency PAST SURGICAL HISTORY [...] Ischemic Heart Disease Father age 42 from [place] - Hypertension Sister - other (Other) Brother [...] October 02, 2019 TIME: 1:00 PM CSN: [id number] [facility] BRIEF OP NOTon 10-02-2019 BRIEF OP NOT HNO ID: [id number] Author: Michael Knott Service: Orthopaedic Surgery Author Type: Physician Type: Brief Op Note Filed: 10/02/2019 3:05 PM Note Text: OPERATIVE/PROCEDURE REPORT LOG ID: [id number] SURGERY/PROCEDURE DATE: 10/02/2019 INCISION/PROCEDURE START TIME: 2:39 PM INCISION CLOSE/PROCEDURE END TIME: 3:00 PM SURGEON(S)/PROCEDURALIST (S) AND TRANSIT BUS OPERATOR(S): Surgeon(s) and Role: * Michael Knott - Primary Physician Forestry Adviser: Ana Prescott (Pa) Registered Nurse Oracle Erp Architect: Mishel (López) LÓPEZ Sow SURGERY/PROCEDURE(S): Right DAK [...] 02, 2019 TIME: 3:03 PM PAGER/CONTACT #: [facility] OPERATIVE NOon 10-02-2019 OPERATIVE NO HNO ID: [id number] Author: Michael Knott Service: Orthopaedic Surgery Author Type: Physician Type: Operative Report Filed: 10/05/2019 7:34 AM Note Text: [facility] - Operative Report MARIMAR WANG : 1960 AGE: 59. SEX: F PATIENT TYPE: A HOSP [facility]: OROR LOCATION: [facility] ATTENDING PHYSICIAN: Michael Knott M.D. CSN NUMBER: [id number] DATE OF SURGERY/PROCEDURE: 10/02/2019 INCISION/PROCEDURE START TIME: 1439. INCISION CLOSE/PROCEDURE END TIME: 1505. PREOPERATIVE DIAGNOSIS: 1. Medial meniscal tear of the right knee. 2. Grade 3 localized changes inferior pole patella, medial femoral condyle. POSTOPERATIVE DIAGNOSIS: Medial meniscal tear [facility] SURGEON: Michael Knott M.D. TRANSIT BUS OPERATOR: Ana Prescott PA-C. SURGERY/PROCEDURE: Arthroscopic partial medial [...] surgeon performed the entire procedure with 1st insurance claims assistant helping with wound closure, dressing application, protecting neurovascular structures. Michael Knott M.D. JBS:[id number] /[id number] [facility] PLAN OF CAREon 10-02-2019 PLAN OF CARE HNO ID: [id number] Author: Celia Baldwin (Hand Ornament Maker) Service: Pharmacy Author Type: ? Type: Plan of Care Filed: 10/02/2019 4:10 PM Note Text: [employer] BEDSIDE DELIVERY SURVEY 1. Patient to use [facility] Bedside Delivery - YES Insurance Information as follows: 2. Insurance card on file - YES 3. Credit card for payment - YES PHARMACY BEDSIDE DELIVERY SERVICE Patient Name: Marimar Wang The marked outpatient medications were Filled at: [facility] and delivered to the patient's bedside to [...] or your Primary Care Provider. Celia Baldwin (Hand Ornament Maker) PAGER: [phone] October 02, 2019 4:10 PM [facility] PT EDon 10-02-2019 PT ED HNO ID: [id number] Author: Elisabeth WattsRn) LÓPEZ Alexis Service: Nursing [...] Signed By: Elisabeth Alexis RN In Department: [facility] SURGERY [facility] PT ED HNO ID: [id number] Author: Krystal WattsRn) LÓPEZ Vivar Service: ? [...] Signed By: Krystal Vivar RN In Department: [facility] SURGERY [facility] NURSING PROGon 09-21-2019 NURSING PROG HNO ID: [id number] Author: Jaiden Keita (Rn) Constantino RN Service: [...] 12 Months: MRI Knee right 01/22/19 see [facility] Chest X-ray 05/05/19 see [facility] No acute radiographic abnormality. Stable cardiac enlargement X-ray Knee Right 12/02/18 see [facility] Cardiac Testing: EKG in last 12 Months: Yes: Date: 02/20/19, Comment: See [facility] NORMAL SINUS RHYTHM POSSIBLE LEFT ATRIAL ENLARGEMENT LEFT VENTRICULAR HYPERTROPHY ECHO Date: 02/13/19, Comment: EF 58% +or-5%-see [facility] Regadenoson NuclearStress Test Date: 03/02/19 , Comment: No ischemia or scar-see [facility] Last Menstrual Period: LMP Date: None recorded Postmenopausal >1yr: Yes, S/P Hysterectomy: No BMI Percentile (PEDS): N/A Risk Assessment: Cardiac Date: 02/20/19 Dr Ronit Rahman, scanned in [facility] 03/19/19(Scanned documents) Anesthesia Review: N/A Narrative: [...] Meeks RN September 25, 2019 7:26 AM [facility] HOSPon 09-01-2019 HOSP Patient:Isabell Wang MRN: [...] Thoracic or lumbosacral neuritis or radiculitis, unspecified [[id number]] Piriformis syndrome [G57.00] Intermittent palpitations [R00.2] PVC's [...] [I65.29] Chronic diastolic CHF (congestive heart failure) ([facility]) [I50.32] COPD (chronic obstructive pulmonary disease) ([facility]) [J44.9] Tear of medial meniscus of right knee [S83.241A] Allergies: Cymbalta [Duloxetine] Dilaudid [Hydromorphone (Bulk)] horse serum [Other] Morphine Nsaids (Non-Steroidal Anti-Inflammatory Drug) Vibramycin [Doxycycline Calcium] Vicodin [Hydrocodone-Acetaminoph en] Date Verified: 10/02/19 Lab Values Lab Value Units Date High Low POTA* 4.0 mEq/L 09/15/2019 5.1 3.5 ANDREW* 46.5 % 09/15/2019 44.9 34.1 Progress Notes ([facility]): Priscila Carrillo CMA 09/18/2019 10:10 AM Signed ----- Message from Sarah Pearson (Pa) sent at 09/15/2019 4:28 PM EST ----- Labs are still showing inflammation but improving since being on Orencia infusions. LIZZIE Cruz CMA 09/18/2019 10:11 AM Signed Patient was called and informed. Priscila Carrillo CMA Progress Notes ([facility]): Sarah Pearson PA-C 09/02/2019 12:33 PM [...] Rheumatological history - Patient was seeing a rapid transit operator in [facility]. She was prescribed Xeljanz (she took it [...] Laterality Date - COLONOSCOP W/ OR W/O [facility] SPEC 04/11/2015 Colonoscopy - COLONOSCOP W/ [...] for RA, Dr. Arias. [facility] Office Visit ([facility] ) -------- MARIMAR WANG ([id number]) 1960 F Date Time Provider Department 08/26/19 2:00 PM BRIAN RADER (TRACY) [facility] During your visit today, we recorded the following information about you: Pulse Blood pressure Weight 76/minute 143/82 90.7 kg Brian Rader APRN.CNP 08/26/2019 3:18 PM Signed Heart [facility] Vascular [facility] Heart Failure [facility] OUTPATIENT VISIT DATE August [...] Laterality Date - COLONOSCOP W/ OR W/O [facility] SPEC 04/11/2015 Colonoscopy - COLONOSCOP W/ OR W/O [facility] SPEC 09/23/2017 Colonoscopy repeat 10 years [...] Ischemic Heart Disease Father age 42 from [place] - Hypertension Sister - other (Other) Brother [...] given to patient. Discussed when to call MD/CARBON PRINTER or go to ED. Discussed follow up. [...] Discussed red flags and when to call MD/CARBON PRINTER or go to ED. Medications reconciled at [...] or concern, you can call me at [phone]. Referring Provider: RONIT RAHMAN [[id number]] Allergies As of Date: 08/26/2019 Noted Allergy [...] or concern, you can call me at [phone]. Prescriptions ordered this encounter Disp Refills Start [...] of Service: NEW PATIENT VISIT LEVEL 4 [[id number]] Encounter Status:Closed by BRIAN RADER CNP on 08/26/19 Normal [facility] PROGRESSon 08-26-2019 PROGRESS HNO ID: [id number] Author: Brian Field) Johny Service: ? Author Type: Nurse Practitioner Type: Progress Notes Filed: 08/26/2019 3:18 PM Note Text: Heart and Vascular [facility] Heart Failure Clinic OUTPATIENT VISIT DATE August [...] Ischemic Heart Disease Father age 42 from [place] - Hypertension Sister - other (Other) Brother [...] given to patient. Discussed when to call MD/CARBON PRINTER or go to ED. Discussed follow up. [...] Discussed red flags and when to call MD/CARBON PRINTER or go to ED. Medications reconciled at end of visit: yes I spent 45 minutes in this visit, with more than 50% of the time devoted to patient counseling. SIGNATURE: Brian Rader APRN.TRACY PATIENT NAME: Marimar Wang DATE: August 26, 2019 TIME: 1:15 PM [facility] 03-02-2019 [facility] HNO ID: [id number] Author: KIM Moffett (Ct) Service: Nuclear Medicine Author Type: Clinical Fur Trimmer Type: Allied Health Filed: 03/02/2019 12:03 PM [...] STATUS: Discontinued PROCEDURE TYPE: NM Stress: 15.4mCi [id number] was administered IV for Rest Imaging at 08:53 by KIM Moffett . 46.4 mCi [id number]-Chdzjgn was administered IV for Stress Imaging at [...] 2019 TIME: 12:02 PM PAGER/CONTACT #: Normal [facility] NM CARDIAC PERF STRESS/PHARM on 03-02-2019 NM [...] 60 minutes later. See administered doses below. [facility] Date of service: 03/02/2019 9:02:38 AM Ordering [...] normal sinus rhythm. Stress complications: none. Final Pre Owned Sales Manager: SRIKANTH Transcritiffany Date/Time: Mar 02 2019 9:02A Dictated by : ORTEGA SON DO This examination was interpreted and the report reviewed and electronically signed by: ORTEGA SON DO on Mar 02 2019 4:18PM EST [id number] [facility] NUCLEAR STRESS LEXISCAN (CAR D)on 03-02-2019 NUCLEAR STRESS LEXISCAN (CARD) NAME : MARIMAR WANG PID : [id number] : 1960 Gender : Female Race : ORD : [id number] Procedure Date : Mar 02 2019 10:16:12 [...] Test Reason : Dyspnea with Exercise Location :[facility] Overread By : ORTEGA SON D.O. Edited By : Yanet Valladares Referred By : RONIT RAHMAN Acquired by : ULISES GARCIA [facility] Jeremy 02-27-2019 CNPN Telephone (CD[facility]) -------- MARIMAR WANG ([id number]) 1960 F Date Time Provider Department 02/27/19 [...] Fully Assessed Reason for Visit: Reminder Call [[id number]] Prescriptions as of 02/27/2019 Sig: FUROSEMIDE 40 [...] Encounter Status:Closed by NIKKIE BOSTON on 02/27/19 [facility] Vital Signs Date Time Vital Sign Value Performing Clinician Facility 03-19-2025 11:07-0400 Body mass index (BMI) [Ratio] 29.7 kg/m2 Josh Bennett DO Work Phone: [facility] 03-19-2025 11:07-0400 Body temperature 97.7 [degF] Josh Bennett DO Work Phone: [facility] 03-19-2025 11:07-040 Body weight 78.47 kg Josh Bennett DO [facility] [facility] 11:07-0400 Diastolic blood pressure 80 mm[Hg] Josh Bennett DO Work Phone: [place] [id number] 11:07-0400 Heart rate 77 /min Josh Bennett DO Work Phone: [facility] 03-19-2025 11:07-0400 SaO2% (BldA) [Mass fraction] 96 % Josh Bennett DO Work Phone: [facility] 03-19-2025 11:07-0400 Systolic blood pressure 130 mm[Hg] Josh Bennett DO Work Phone: [facility] 03-18-2025 10:13-0400 Body temperature 97.39 [degF] Treatment Wstr Work Phone: [facility] 03-18-2025 10:13-0400 Diastolic blood pressure 73 mm[Hg] Treatment Wstr Work Phone: [facility] 03-18-2025 10:13-0400 Heart rate 87 /min Treatment Wstr Work Phone: [facility] 03-18-2025 10:13-0400 SaO2% (BldA) [Mass fraction] 95 % Treatment Wstr Work Phone: [facility] 03-18-2025 10:13-0400 Systolic blood pressure 123 mm[Hg] Treatment Wstr Work Phone: [facility] 03-16-2025 10:37-0400 Body height 157.48 cm Woo Thapa MD Work Phone: [facility] 03-16-2025 10:37-0400 Body mass index (BMI) [Ratio] 31.3 kg/m2 Woo Thapa MD Work Phone: [facility] 03-16-2025 10:37-0400 Body temperature 97.9 [degF] Woo Thapa MD Work Phone: [facility] 03-16-2025 10:37-0400 Body weight 77.73 kg Woo Thapa MD Work Phone: [facility] 03-16-2025 10:37-0400 Diastolic blood pressure 81 mm[Hg] Woo Thapa MD Work Phone: 5(533)961-164173 [place] [address] 03-16-2025 10:37-0400 Heart rate 72 /min Woo Thapa MD Work Phone: 4(817)563-547073 [place] [address] 03-16-2025 10:37-0400 Respiratory rate 18 /min Woo Thapa MD Work Phone: 5(006)633-684525 [place] [address] 03-16-2025 10:37-0400 SaO2% (BldA) [Mass fraction] 98 % Woo Thapa MD Work Phone: 3(662)871-585225 [place] [address] 03-16-2025 10:37-0400 Systolic blood pressure 127 mm[Hg] Woo Thapa MD Work Phone: 7(213)497-286025 [place] [address] 03-02-2025 10:59-0400 Body temperature 97.9 [degF] Woo Thapa MD Work Phone: 0(069)703-798425 [place] [address] 03-02-2025 10:59-0400 Diastolic blood pressure 54 mm[Hg] Woo Thapa MD Work Phone: 3(538)365-662925 [place] [address] 03-02-2025 10:59-0400 Heart rate 74 /min Woo Thapa MD Work Phone: 9(511)636-825125 [place] [address] 03-02-2025 10:59-0400 Respiratory rate 16 /min Woo Thapa MD Work Phone: 5(434)497-797925 [place] [address] 03-02-2025 10:59-0400 SaO2% (BldA) [Mass fraction] 95 % Woo Thapa MD Work Phone: 2(946)580-028125 [place] [address] 03-02-2025 10:59-0400 Systolic blood pressure 132 mm[Hg] Woo Thapa MD Work Phone: 7(662)876-217325 [place] [address] 03-02-2025 08:37-0400 Body height 158.75 cm Woo Thapa MD Work Phone: 3(149)699-060225 [place] [address] 03-02-2025 08:37-0400 Body mass index (BMI) [Ratio] 33.8 kg/m2 Woo Thapa MD Work Phone: 6(679)728-930625 [place] [address] 03-02-2025 08:37-0400 Body weight 85.3 kg Woo Thapa MD Work Phone: [facility] 02-27-2025 19:48-0400 Body temperature 98.1 [degF] Julio Arriaga [employer] Work Phone: [facility] 02-27-2025 19:48-0400 Diastolic blood pressure 68 mm[Hg] Julio Arriaga [employer] Work Phone: [facility] 02-27-2025 19:48-0400 Heart rate 91 /min Julio Arriaga [employer] Work Phone: [facility] 02-27-2025 19:48-0400 Respiratory rate 16 /min Julio Arriaga [employer] Work Phone: [facility] 02-27-2025 19:48-0400 SaO2% (BldA) [Mass fraction] 97 % Julio Arriaga [employer] Work Phone: [facility] 02-27-2025 19:48-0400 Systolic blood pressure 147 mm[Hg] Julio Arriaga [employer] Work Phone: [facility] 02-27-2025 17:19-0400 Body height 157.48 cm Julio Arriaga [employer] Work Phone: [facility] 02-27-2025 17:19-0400 Body mass index (BMI) [Ratio] 33.1 kg/m2 Julio Arriaga NP-C Work Phone: [facility] 02-27-2025 17:19-0400 Body weight 82.19 kg Julio Arriaga [employer] Work Phone: [facility] 02-18-2025 12:50-0400 Body temperature 98.91 [degF] Treatment Wstr Work Phone: [facility] 02-18-2025 12:50-0400 Diastolic blood pressure 73 mm[Hg] Treatment Wstr Work Phone: [facility] 02-18-2025 12:50-0400 Heart rate 82 /min Treatment Wstr Work Phone: [facility] 02-18-2025 12:50-0400 SaO2% (BldA) [Mass fraction] 95 % Treatment Wstr Work Phone: [facility] 02-18-2025 12:50-0400 Systolic blood pressure 159 mm[Hg] Treatment Wstr Work Phone: [facility] 02-09-2025 09:46-0400 Body height 157.48 cm Julio Arriaga [employer] Work Phone: [facility] 02-09-2025 09:46-0400 Body mass index (BMI) [Ratio] 33.3 kg/m2 Julio Arriaga [employer] Work Phone: [facility] 02-09-2025 09:46-0400 Body weight 82.55 kg Julio Arriaga [employer] Work Phone: [facility] 02-09-2025 09:46-0400 Diastolic blood pressure 76 mm[Hg] Julio Arriaga [employer] Work Phone: [facility] 02-09-2025 09:46-0400 Heart rate 68 /min Julio Arriaga [employer] Work Phone: [facility] 02-09-2025 09:46-0400 Respiratory rate 17 /min Julio Arriaga [employer] Work Phone: [facility] 02-09-2025 09:46-0400 SaO2% (BldA) [Mass fraction] 96 % Julio Arriaga [employer] Work Phone: [facility] 02-09-2025 09:46-0400 Systolic blood pressure 134 mm[Hg] Julio Arriaga [employer] Work Phone: [facility] 02-05-2025 10:43-0400 Body mass index (BMI) [Ratio] 31.03 kg/m2 Treatment Wstr Work Phone: [facility] 02-05-2025 10:43-0400 Body temperature 99 [degF] Treatment Wstr Work Phone: [facility] 02-05-2025 10:43-0400 Body weight 82 kg Treatment Wstr Work Phone: [facility] 02-05-2025 10:43-0400 Diastolic blood pressure 76 mm[Hg] Treatment Wstr Work Phone: [facility] 02-05-2025 10:43-0400 Heart rate 74 /min Treatment Wstr Work Phone: [facility] 02-05-2025 10:43-0400 Respiratory rate 16 /min Treatment Wstr Work Phone: [facility] 02-05-2025 10:43-0400 SaO2% (BldA) [Mass fraction] 96 % Treatment Wstr Work Phone: [facility] 02-05-2025 10:43-0400 Systolic blood pressure 166 mm[Hg] Treatment Wstr Work Phone: [facility] 02-02-2025 11:01-0400 Body height 157.48 cm Julio Arriaga NP-C Work Phone: [facility] 02-02-2025 11:01-0400 Body mass index (BMI) [Ratio] 33.5 kg/m2 Julio Arriaga NP-C Work Phone: [facility] 02-02-2025 11:01-0400 Body weight 83 kg Julio Arriaga NP-C Work Phone: [facility] 02-02-2025 11:01-0400 Diastolic blood pressure 77 mm[Hg] Julio Arriaga NP-C Work Phone: [facility] 02-02-2025 11:01-0400 Heart rate 75 /min Julio Arriaga NP-C Work Phone: [facility] 02-02-2025 11:01-0400 SaO2% (BldA) [Mass fraction] 96 % Julio Corina [employer] Work Phone: [facility] 02-02-2025 11:01-0400 Systolic blood pressure 160 mm[Hg] Julio Arriaga [employer] Work Phone: [facility] 01-14-2025 08:27-0400 Body height 157.48 cm Julio Arriaga [employer] Work Phone: [facility] 01-14-2025 08:27-0400 Body mass index (BMI) [Ratio] 33.5 kg/m2 Julio Arriaga [employer] Work Phone: [facility] 01-14-2025 08:27-0400 Body temperature 97.6 [degF] Julio Arriaga [employer] Work Phone: [facility] 01-14-2025 08:27-0400 Body weight 83 kg Julio Arriaga [employer] Work Phone: [facility] 01-14-2025 08:27-0400 Diastolic blood pressure 84 mm[Hg] Julio Arriaga [employer] Work Phone: [facility] 01-14-2025 08:27-0400 Heart rate 74 /min Julio Arriaga [employer] Work Phone: [facility] 01-14-2025 08:27-0400 Respiratory rate 20 /min Julio Arriaga [employer] Work Phone: [facility] 01-14-2025 08:27-0400 SaO2% (BldA) [Mass fraction] 96 % Julio Arriaga [employer] Work Phone: [facility] 01-14-2025 08:27-0400 Systolic blood pressure 167 mm[Hg] Julio Arriaga [employer] Work Phone: [facility] 01-07-2025 10:24-0400 Body temperature 97.11 [degF] Treatment Wstr Work Phone: [facility] 01-07-2025 10:24-0400 Diastolic blood pressure 60 mm[Hg] Treatment Wstr Work Phone: [facility] 01-07-2025 10:24-0400 Heart rate 75 /min Treatment Wstr Work Phone: [facility] 01-07-2025 10:24-0400 SaO2% (BldA) [Mass fraction] 93 % Treatment Wstr Work Phone: [facility] 01-07-2025 10:24-0400 Systolic blood pressure 124 mm[Hg] Treatment Wstr Work Phone: [facility] 12-27-2024 16:27-0400 Body temperature 98.2 [degF] Julio Arriaga [employer] Work Phone: [facility] 12-27-2024 16:27-0400 Diastolic blood pressure 58 mm[Hg] Julio Arriaga [employer] Work Phone: [facility] 12-27-2024 16:27-0400 Heart rate 70 /min Julio Arriaga [employer] Work Phone: [facility] 12-27-2024 16:27-0400 Respiratory rate 18 /min Julio Arriaga [employer] Work Phone: [facility] 12-27-2024 16:27-0400 SaO2% (BldA) [Mass fraction] 96 % Julio Arriaga [employer] Work Phone: [facility] 12-27-2024 16:27-0400 Systolic blood pressure 112 mm[Hg] Julio Arriaga [employer] Work Phone: [facility] 12-27-2024 14:43-0400 Body height 157.48 cm Julio Arriaga [employer] Work Phone: [facility] 12-27-2024 14:43-0400 Body mass index (BMI) [Ratio] 32.3 kg/m2 Julio Arriaga [employer] Work Phone: [facility] 12-27-2024 14:43-0400 Body weight 80.33 kg Julio ECHEVARRIA Work Phone: [facility] 11-30-2024 10:31-0400 Body mass index (BMI) [Ratio] 30.55 kg/m2 Delvin Ron [employer]GER.[employer] Work Phone: [facility] 11-30-2024 10:31-0400 Body temperature 97.7 [degF] Delvin Ron [employer] MANAGER.[employer] Work Phone: [facility] 11-30-2024 10:31-0400 Body weight 80.74 kg Delvin Ron [employer] MANAGER.F[employer] TI[employer] Work Phone: [facility] 11-30-2024 10:31-0400 Diastolic blood pressure 75 mm[Hg] Delvin Ron [employer] MANAGER.F[employer]DER TIER Work Phone: [facility] 11-30-2024 10:31-0400 Heart rate 80 /min Delvin Ron [employer] MANAGER.F[employer]DER TIER Work Phone: [facility] 11-30-2024 10:31-0400 SaO2% (BldA) [Mass fraction] 95 % Delvin Ron [employer] MANAGER.FOLDER TIER Work Phone: [facility] 11-30-2024 10:31-0400 Systolic blood pressure 129 mm[Hg] Delvin Ron [employer] MANAGER.FOLDER TIER Work Phone: [facility] 11-30-2024 10:18-0400 Body mass index (BMI) [Ratio] 30.64 kg/m2 Lab/Port Wstr Work Phone: [facility] 11-30-2024 10:18-0400 Body weight 80.97 kg Lab/Port Wstr Work Phone: [facility] 11-10-2024 09:49-0400 Body temperature 97.7 [degF] Sidney Joya MD Work Phone: [facility] 11-10-2024 09:49-0400 Diastolic blood pressure 81 mm[Hg] Sidney Joya MD Work Phone: [facility] 11-10-2024 09:49-0400 Heart rate 80 /min Sidney Joya MD Work Phone: [facility] 11-10-2024 09:49-0400 SaO2% (BldA) [Mass fraction] 94 % Sidney Joya MD Work Phone: [facility] 11-10-2024 09:49-0400 Systolic blood pressure 138 mm[Hg] Sidney Joya MD Work Phone: [facility] 11-09-2024 10:55-0400 Body mass index (BMI) [Ratio] 31.75 kg/m2 Delvin Ron [employer] MANAGER.F[employer]DER TIER Work Phone: [facility] 11-09-2024 10:55-0400 Body temperature 98.1 [degF] Delvin Ron [employer] MANAGER.FOLDER TIER Work Phone: [facility] 11-09-2024 10:55-0400 Body weight 83.9 kg Delvin Ron [employer] SERVICES MANAGER.FOLDER TIER Work Phone: [facility] 11-09-2024 10:55-0400 Diastolic blood pressure 70 mm[Hg] Delvin Ron [employer] SERVICES MANAGER.FOLDER TIER Work Phone: [facility] 11-09-2024 10:55-0400 Heart rate 99 /min Delvin Ron [employer] SERVICES MANAGER.FOLDER TIER Work Phone: [facility] 11-09-2024 10:55-0400 SaO2% (BldA) [Mass fraction] 94 % Delvin Ron [employer] SERVICES MANAGER.FOLDER TIER Work Phone: [facility] 11-09-2024 10:55-0400 Systolic blood pressure 140 mm[Hg] [place] Ron [employer] SERVICES MANAGER.FOLDER TIER Work Phone: [facility] 11-06-2024 09:51-0400 Body temperature 97.9 [degF] Lab/Port Wstr Work Phone: [facility] 11-06-2024 09:51-0400 Diastolic blood pressure 75 mm[Hg] Lab/Port Wstr Work Phone: [facility] 11-06-2024 09:51-0400 Heart rate 62 /min Lab/Port Wstr Work Phone: [facility] 11-06-2024 09:51-0400 SaO2% (BldA) [Mass fraction] 98 % Lab[facility]Port [facility]str Work Phone: [facility] 11-06-2024 09:51-0400 Systolic blood pressure 122 mm[Hg] Lab/Port Wstr Work Phone: [facility] 11-03-2024 09:42-0400 Body temperature 97.81 [degF] Sidney Joya MD Work Phone: [facility] 11-03-2024 09:42-0400 Diastolic blood pressure 74 mm[Hg] Sidney Joya MD Work Phone: [facility] 11-03-2024 09:42-0400 Heart rate 76 /min Sidney Joya MD Work Phone: [facility] 11-03-2024 09:42-0400 SaO2% (BldA) [Mass fraction] 97 % Sidney Joya MD Work Phone: [facility] 11-03-2024 09:42-0400 Systolic blood pressure 152 mm[Hg] Sidney Joya MD Work Phone: [facility] 11-02-2024 09:34-0400 Body temperature 97.81 [degF] Treatment Wstr Work Phone: [facility] 11-02-2024 09:34-0400 Diastolic blood pressure 80 mm[Hg] Treatment Wstr Work Phone: [facility] 11-02-2024 09:34-0400 Heart rate 77 /min Treatment Wstr Work Phone: [facility] 11-02-2024 09:34-0400 Respiratory rate 18 /min Treatment Wstr Work Phone: [facility] 11-02-2024 09:34-0400 SaO2% (BldA) [Mass fraction] 95 % Treatment Wstr Work Phone: [facility] 11-02-2024 09:34-0400 Systolic blood pressure 136 mm[Hg] Treatment Wstr Work Phone: [facility] 10-30-2024 09:17-0400 Body mass index (BMI) [Ratio] 33.33 kg/m2 Josh Bennett DO Work Phone: [facility] 10-30-2024 09:17-0400 Body temperature 97.59 [degF] Josh Bennett DO Work Phone: [facility] 10-30-2024 09:17-0400 Body weight 88.22 kg Josh Bennett DO Work Phone: [facility] 10-30-2024 09:17-0400 Diastolic blood pressure 75 mm[Hg] Josh Bennett DO Work Phone: [facility] 10-30-2024 09:17-0400 Heart rate 77 /min Josh Bennett DO Work Phone: [facility] 10-30-2024 09:17-0400 SaO2% (BldA) [Mass fraction] 96 % Josh Bennett DO Work Phone: [facility] 10-30-2024 09:17-0400 Systolic blood pressure 125 mm[Hg] Josh Bennett DO Work Phone: [facility] 10-30-2024 03:30-0400 Body temperature 97.1 [degF] Julio Arriaga [employer] Work Phone: [facility] 10-30-2024 03:30-0400 Diastolic blood pressure 78 mm[Hg] Julio Arriaga [employer] Work Phone: [facility] 10-30-2024 03:30-0400 Heart rate 74 /min Julio Arriaga [employer] Work Phone: [facility] 10-30-2024 03:30-0400 Respiratory rate 18 /min Julio Arriaga [employer] Work Phone: [facility] 10-30-2024 03:30-0400 SaO2% (BldA) [Mass fraction] 97 % Julio Arriaga [employer] Work Phone: [facility] 10-30-2024 03:30-0400 Systolic blood pressure 136 mm[Hg] Julio Arriaga [employer] Work Phone: [facility] 10-30-2024 00:58-0400 Body height 157.48 cm Julio Arriaga [employer] Work Phone: [facility] 10-30-2024 00:58-0400 Body mass index (BMI) [Ratio] 35.5 kg/m2 Julio Arriaga [employer] Work Phone: [facility] 10-30-2024 00:58-0400 Body weight 88.1 kg Julio Arriaga [employer] Work Phone: [facility] 10-27-2024 09:47-0400 Body mass index (BMI) [Ratio] 33.48 kg/m2 Ricci Abreu MD Work Phone: [facility] 10-27-2024 09:47-0400 Body temperature 98.01 [degF] Ricci Abreu MD Work Phone: [facility] 10-27-2024 09:47-0400 Body weight 88.63 kg Ricci Abreu MD Work Phone: [facility] 10-27-2024 09:47-0400 Diastolic blood pressure 83 mm[Hg] Ricci Abreu MD Work Phone: [facility] 10-27-2024 09:47-0400 Heart rate 78 /min Ricci Abreu MD Work Phone: [facility] 10-27-2024 09:47-0400 SaO2% (BldA) [Mass fraction] 96 % Ricci Abreu MD Work Phone: [facility] 10-27-2024 09:47-0400 Systolic blood pressure 151 mm[Hg] Ricci Abreu MD Work Phone: [facility] 10-24-2024 23:00-0400 Body temperature 98.2 [degF] Julio Arriaga [employer] Work Phone: [facility] 10-24-2024 23:00-0400 Diastolic blood pressure 70 mm[Hg] Julio Arriaga [employer] Work Phone: [facility] 10-24-2024 23:00-0400 Heart rate 80 /min Julio Arriaga [employer] Work Phone: [facility] 10-24-2024 23:00-0400 Respiratory rate 12 /min Julio Arriaga [employer] Work Phone: [facility] 10-24-2024 23:00-0400 SaO2% (BldA) [Mass fraction] 96 % Julio Arriaga [employer] Work Phone: [facility] 10-24-2024 23:00-0400 Systolic blood pressure 150 mm[Hg] Julio Arriaga [employer] Work Phone: [facility] 10-24-2024 21:03-0400 Body mass index (BMI) [Ratio] 36.3 kg/m2 Julio Arriaga [employer] Work Phone: [facility] 10-24-2024 21:03-0400 Body weight 90 kg Julio Arriaga [employer] Work Phone: [facility] 10-24-2024 20:58-0400 Body height 157.48 cm Julio Arriaga [employer] Work Phone: [facility] 10-20-2024 09:34-0400 Body mass index (BMI) [Ratio] 33.62 kg/m2 Shawn Beltran MD Work Phone: [facility] 10-20-2024 09:34-0400 Body temperature 98.6 [degF] Shawn Beltran MD Work Phone: [facility] 10-20-2024 09:34-0400 Body weight 89 kg Shawn Beltran MD Work Phone: [facility] 10-20-2024 09:34-0400 Diastolic blood pressure 83 mm[Hg] Shawn Beltran MD Work Phone: [facility] Comment on above: hasn't taken BP meds 10-20-2024 09:34-0400 Heart rate 90 /min Shawn Beltran MD Work Phone: [facility] 10-20-2024 09:34-0400 Respiratory rate 20 /min Shawn Beltran MD Work Phone: [facility] 10-20-2024 09:34-0400 SaO2% (BldA) [Mass fraction] 97 % Shawn Beltran MD Work Phone: [facility] 10-20-2024 09:34-0400 Systolic blood pressure 163 mm[Hg] Shawn Beltran MD Work Phone: [facility] Comment on above: hasn't taken BP meds 10-16-2024 09:52-0400 Body mass index (BMI) [Ratio] 33.47 kg/m2 Treatment Wstr Work Phone: [facility] 10-16-2024 09:52-0400 Body temperature 98.2 [degF] Treatment Wstr Work Phone: [facility] 10-16-2024 09:52-0400 Body weight 88.6 kg Treatment Wstr Work Phone: [facility] 10-16-2024 09:52-0400 Diastolic blood pressure 77 mm[Hg] Treatment Wstr Work Phone: [facility] 10-16-2024 09:52-0400 Heart rate 87 /min Treatment Wstr Work Phone: [facility] 10-16-2024 09:52-0400 SaO2% (BldA) [Mass fraction] 96 % Treatment Wstr Work Phone: [facility] 10-16-2024 09:52-0400 Systolic blood pressure 152 mm[Hg] Treatment Wstr Work Phone: [facility] 10-13-2024 09:47-0400 Body mass index (BMI) [Ratio] 33.31 kg/m2 Sidney Joya MD Work Phone: [facility] 10-13-2024 09:47-0400 Body temperature 98.4 [degF] Sidney Joya MD Work Phone: [facility] 10-13-2024 09:47-0400 Body weight 88.18 kg Sidney Joya MD Work Phone: [facility] 10-13-2024 09:47-0400 Diastolic blood pressure 58 mm[Hg] Sidney Joya MD Work Phone: [facility] 10-13-2024 09:47-0400 Heart rate 79 /min Sidney Joya MD Work Phone: [facility] 10-13-2024 09:47-0400 SaO2% (BldA) [Mass fraction] 97 % Sidney Joya MD Work Phone: [facility] 10-13-2024 09:47-0400 Systolic blood pressure 121 mm[Hg] Sidney Joya MD Work Phone: [facility] 10-07-2024 09:52-0400 Body temperature 97.81 [degF] Treatment Wstr Work Phone: [facility] 10-07-2024 09:52-0400 Diastolic blood pressure 76 mm[Hg] Treatment Wstr Work Phone: [facility] 10-07-2024 09:52-0400 Heart rate 94 /min Treatment Wstr Work Phone: [facility] 10-07-2024 09:52-0400 SaO2% (BldA) [Mass fraction] 93 % Treatment Wstr Work Phone: [facility] 10-07-2024 09:52-0400 Systolic blood pressure 135 mm[Hg] Treatment Wstr Work Phone: [facility] 10-06-2024 09:50-0400 Body temperature 98.01 [degF] Sidney Joya MD Work Phone: [facility] 10-06-2024 09:50-0400 Diastolic blood pressure 80 mm[Hg] Sidney Joya MD Work Phone: [facility] 10-06-2024 09:50-0400 Heart rate 78 /min Sidney Joya MD Work Phone: [facility] 10-06-2024 09:50-0400 Respiratory rate 18 /min Sidney Joya MD Work Phone: [facility] 10-06-2024 09:50-0400 SaO2% (BldA) [Mass fraction] 99 % Sidney Joya MD Work Phone: [facility] 10-06-2024 09:50-0400 Systolic blood pressure 153 mm[Hg] Sidney Joya MD Work Phone: [facility] 10-05-2024 09:23-0400 Body height 162.7 cm Treatment Wstr Work Phone: [facility] 10-05-2024 09:23-0400 Body mass index (BMI) [Ratio] 33.33 kg/m2 Treatment Wstr Work Phone: [facility] 10-05-2024 09:23-0400 Body temperature 97 [degF] Treatment Wstr Work Phone: [facility] 10-05-2024 09:23-0400 Body weight 88.22 kg Treatment Wstr Work Phone: [facility] 10-05-2024 09:23-0400 Diastolic blood pressure 69 mm[Hg] Treatment Wstr Work Phone: [facility] 10-05-2024 09:23-0400 Heart rate 63 /min Treatment Wstr Work Phone: [facility] 10-05-2024 09:23-0400 SaO2% (BldA) [Mass fraction] 95 % Treatment Wstr Work Phone: [facility] 10-05-2024 09:23-0400 Systolic blood pressure 142 mm[Hg] Treatment Wstr Work Phone: [facility] 10-02-2024 10:00-0500 Body height 157.48 cm Julio ECHEVARRIA Work Phone: [facility] 10-02-2024 10:00-0500 Body mass index (BMI) [Ratio] 34.4 kg/m2 Julio Arriaga [employer] PRINTER[employer]C Work Phone: [facility] 10-02-2024 10:00-0500 Body temperature 97.5 [degF] Julio Arriaga [employer]C Work Phone: [facility] 10-02-2024 10:00-0500 Body weight 85.27 kg Julio Arriaga [employer] PR[employer]C Work Phone: [facility] 10-02-2024 10:00-0500 Diastolic blood pressure 75 mm[Hg] Julio Arriaga [employer] PRINTER[employer]C Work Phone: [facility] 10-02-2024 10:00-0500 Heart rate 72 /min Julio Arriaga [employer] PRINTER-C Work Phone: [facility] 10-02-2024 10:00-0500 Respiratory rate 16 /min Julio Arriaga [employer]INTER[employer]C Work Phone: [facility] 10-02-2024 10:00-0500 SaO2% (BldA) [Mass fraction] 95 % Julio Arriaga [employer] PRINTER-C Work Phone: [facility] 10-02-2024 10:00-0500 Systolic blood pressure 172 mm[Hg] Julio Arriaga [employer] PRINTER-C Work Phone: [facility] 09-30-2024 09:21-0500 Body mass index (BMI) [Ratio] 33.98 kg/m2 Juan José Cheema MD Work Phone: [facility] 09-30-2024 09:21-0500 Body weight 88.09 kg Juan José Cheema MD Work Phone: [facility] 09-30-2024 09:21-0500 Diastolic blood pressure 68 mm[Hg] Juan José Cheema MD Work Phone: [facility] 09-30-2024 09:21-0500 Systolic blood pressure 122 mm[Hg] Juan José Cheema MD Work Phone: [facility] 09-25-2024 14:00-0500 Body temperature 98.1 [degF] Julio Arriaga [employer] PRINTER[employer]C Work Phone: [facility] 09-25-2024 14:00-0500 Diastolic blood pressure 69 mm[Hg] Julio Arriaga [employer] PRINTER[employer]C Work Phone: [facility] 09-25-2024 14:00-0500 Heart rate 95 /min Julio Arriaga [employer]C Work Phone: [facility] 09-25-2024 14:00-0500 Respiratory rate 18 /min Julio Arriaga [employer]C Work Phone: [facility] 09-25-2024 14:00-0500 SaO2% (BldA) [Mass fraction] 96 % Julio Arriaga [employer]INTER[employer]C Work Phone: [facility] 09-25-2024 14:00-0500 Systolic blood pressure 154 mm[Hg] Julio Arriaga [employer]C Work Phone: [facility] 09-24-2024 18:46-0500 Body mass index (BMI) [Ratio] 33.3 kg/m2 Julio Arriaga [employer]C Work Phone: [facility] 09-24-2024 18:46-0500 Body weight 85.27 kg Julio Arriaga [employer]C Work Phone: [facility] 09-24-2024 18:22-0500 Body mass index (BMI) [Ratio] 33.76 kg/m2 Kimmy Dixon APRN.FOLDER TIER Work Phone: [facility] 09-24-2024 18:22-0500 Body temperature 98.2 [degF] Kimmy Dixon APRN.FOLDER TIER Work Phone: [facility] 09-24-2024 18:22-0500 Body weight 87.5 kg Kimmy Dxion APRN.FOLDER TIER Work Phone: [facility] 09-24-2024 18:22-0500 Diastolic blood pressure 72 mm[Hg] Kimmy Zack [employer] EM[employer] SERVICES MANAGER.FOLDER TIER Work Phone: [facility] 09-24-2024 18:22-0500 Heart rate 90 /min Kimmy Zack [employer]RO[employer] EMERGENCY SERVICES MANAGER.FOLDER TIER Work Phone: [facility] 09-24-2024 18:22-0500 Respiratory rate 18 /min Kimmy Dixon [employer]RO[employer] EMERGENCY SERVICES MANAGER.FOLDER TIER Work Phone: [facility] 09-24-2024 18:22-0500 SaO2% (BldA) [Mass fraction] 97 % Kimmy Zack [employer]RO[employer] EMERGENCY SERVICES MANAGER.FOLDER TIER Work Phone: [facility] 09-24-2024 18:22-0500 Systolic blood pressure 139 mm[Hg] Kimmy James [employer]RO[employer] EMERGENCY SERVICES MANAGER.FOLDER TIER Work Phone: [facility] 09-17-2024 10:23-0500 Body mass index (BMI) [Ratio] 33.6 kg/m2 Sidney Joya MD Work Phone: [facility] 09-17-2024 10:23-0500 Body temperature 96.69 [degF] Sidney Joya MD Work Phone: [facility] 09-17-2024 10:23-0500 Body weight 87.09 kg Sidney Joya MD Work Phone: [facility] 09-17-2024 10:23-0500 Diastolic blood pressure 80 mm[Hg] Sidney Joya MD Work Phone: [facility] 09-17-2024 10:23-0500 Heart rate 86 /min Sidney Joya MD Work Phone: [facility] 09-17-2024 10:23-0500 Respiratory rate 17 /min Sidney Joya MD Work Phone: [facility] 09-17-2024 10:23-0500 SaO2% (BldA) [Mass fraction] 96 % Sidney Joya MD Work Phone: [facility] 09-17-2024 10:23-0500 Systolic blood pressure 122 mm[Hg] Sidney Joya MD Work Phone: [facility] 09-15-2024 15:15-0500 Body height 161 cm Josh Bennett DO Work Phone: [facility] 09-15-2024 15:15-0500 Body mass index (BMI) [Ratio] 33.86 kg/m2 Josh Bennett DO Work Phone: [facility] 09-15-2024 15:15-0500 Body temperature 98.2 [degF] Josh Bennett DO Work Phone: [facility] 09-15-2024 15:15-0500 Body weight 87.77 kg Josh Bennett DO Work Phone: [facility] 09-15-2024 15:15-0500 Diastolic blood pressure 82 mm[Hg] Josh Bennett DO Work Phone: [facility] 09-15-2024 15:15-0500 Heart rate 82 /min Josh Bennett DO Work Phone: [facility] 09-15-2024 15:15-0500 SaO2% (BldA) [Mass fraction] 95 % Josh Bennett DO Work Phone: [facility] 09-15-2024 15:15-0500 Systolic blood pressure 149 mm[Hg] Josh Bennett DO Work Phone: [facility] 09-03-2024 16:32-0500 Body temperature 98.2 [degF] Julio Arriaga [employer] PR[employer]C Work Phone: [facility] 09-03-2024 16:32-0500 Diastolic blood pressure 54 mm[Hg] Julio Arriaga [employer]C Work Phone: [facility] 09-03-2024 16:32-0500 Heart rate 82 /min Julio Arriaga [employer] PR[employer]C Work Phone: [facility] 09-03-2024 16:32-0500 Respiratory rate 19 /min Julio Arriaga [employer]C Work Phone: [facility] 09-03-2024 16:32-0500 SaO2% (BldA) [Mass fraction] 93 % Julio Arriaga [employer] PR[employer]C Work Phone: [facility] 09-03-2024 16:32-0500 Systolic blood pressure 119 mm[Hg] Julio Arriaga [employer] PR[employer]-C Work Phone: [facility] 09-03-2024 16:08-0500 Inhaled oxygen flow rate 3 L/min Julio Arriaga [employer] PRINTER-C Work Phone: [facility] 09-03-2024 14:00-0500 Body weight 95.1 kg Julio Arriaga [employer]C Work Phone: [facility] 09-02-2024 18:46-0500 Body mass index (BMI) [Ratio] 37.1 kg/m2 Julio Arriaga [employer]C Work Phone: [facility] 09-02-2024 09:58-0500 Body mass index (BMI) [Ratio] 34.77 kg/m2 Kimmy Dixon APRN.FOLDER TIER Work Phone: [facility] 09-02-2024 09:58-0500 Body temperature 97 [degF] Kimym Dixon APRN.FOLDER TIER Work Phone: [facility] 09-02-2024 09:58-0500 Body weight 89 kg Kimmy Dixon APRN.FOLDER TIER Work Phone: [facility] 09-02-2024 09:58-0500 Diastolic blood pressure 72 mm[Hg] Kimmy Dixon APRN.FOLDER TIER Work Phone: [facility] 09-02-2024 09:58-0500 Heart rate 87 /min Kimmy Dixon APRN.FOLDER TIER Work Phone: [facility] 09-02-2024 09:58-0500 Respiratory rate 18 /min Kimmy Dixon APRN.FOLDER TIER Work Phone: [facility] 09-02-2024 09:58-0500 SaO2% (BldA) [Mass fraction] 98 % Kimmy Dixon APRN.FOLDER TIER Work Phone: [facility] 09-02-2024 09:58-0500 Systolic blood pressure 122 mm[Hg] Kimmy Dixon APRN.FOLDER TIER Work Phone: [facility] 07-02-2024 08:00-0500 Body temperature 97.5 [degF] Treatment Wstr Work Phone: [facility] 07-02-2024 08:00-0500 Diastolic blood pressure 68 mm[Hg] Treatment Wstr Work Phone: [facility] 07-02-2024 08:00-0500 Heart rate 79 /min Treatment Wstr Work Phone: [facility] 07-02-2024 08:00-0500 Respiratory rate 20 /min Treatment Wstr Work Phone: [facility] 07-02-2024 08:00-0500 SaO2% (BldA) [Mass fraction] 97 % Treatment Wstr Work Phone: [facility] 07-02-2024 08:00-0500 Systolic blood pressure 176 mm[Hg] Treatment Wstr Work Phone: [facility] 06-24-2024 09:12-0500 Body temperature 97.81 [degF] Treatment Wstr Work Phone: [facility] 06-24-2024 09:12-0500 Diastolic blood pressure 87 mm[Hg] Treatment Wstr Work Phone: [facility] 06-24-2024 09:12-0500 Heart rate 86 /min Treatment Wstr Work Phone: [facility] 06-24-2024 09:12-0500 Respiratory rate 20 /min Treatment Wstr Work Phone: [facility] 06-24-2024 09:12-0500 SaO2% (BldA) [Mass fraction] 97 % Treatment Wstr Work Phone: [facility] 06-24-2024 09:12-0500 Systolic blood pressure 171 mm[Hg] Treatment Wstr Work Phone: [facility] 06-18-2024 09:57-0500 Body temperature 97.39 [degF] Treatment Wstr Work Phone: [facility] 06-18-2024 09:57-0500 Heart rate 86 /min Treatment Wstr Work Phone: [facility] 06-18-2024 09:57-0500 SaO2% (BldA) [Mass fraction] 96 % Treatment Wstr Work Phone: [facility] 06-15-2024 13:42-0500 Body height 160 cm Josh Masci DO Work Phone: [facility] 06-15-2024 13:42-0500 Body mass index (BMI) [Ratio] 35.17 kg/m2 Josh Masci DO Work Phone: [facility] 06-15-2024 13:42-0500 Body temperature 97.3 [degF] Josh Masci DO Work Phone: [facility] 06-15-2024 13:42-0500 Body weight 90.04 kg Josh Masci DO Work Phone: [facility] 06-15-2024 13:42-0500 Diastolic blood pressure 72 mm[Hg] Josh Masci DO Work Phone: [facility] 06-15-2024 13:42-0500 Heart rate 77 /min Josh Masci DO Work Phone: [facility] 06-15-2024 13:42-0500 SaO2% (BldA) [Mass fraction] 96 % Josh Masci DO Work Phone: [facility] 06-15-2024 13:42-0500 Systolic blood pressure 118 mm[Hg] Josh Masci DO Work Phone: [facility] 05-21-2024 13:18-0400 Body mass index (BMI) [Ratio] 35 kg/m2 [facility] 05-21-2024 13:18-0400 Body temperature 97.2 [degF] [facility] 05-21-2024 13:18-0400 Body weight 89.63 kg [facility] 05-21-2024 13:18-0400 Diastolic blood pressure 74 mm[Hg] [facility] 05-21-2024 13:18-0400 Heart rate 86 /min [facility] 05-21-2024 13:18-0400 Respiratory rate 20 /min [facility] 05-21-2024 13:18-0400 SaO2% (BldA) [Mass fraction] 96 % [facility] 05-21-2024 13:18-0400 Systolic blood pressure 146 mm[Hg] [facility] 04-01-2024 14:37-0400 Body mass index (BMI) [Ratio] 34.58 kg/m2 [facility] 04-01-2024 14:37-0400 Body temperature 98.4 [degF] [facility] 04-01-2024 14:37-0400 Body weight 88.54 kg [facility] 04-01-2024 14:37-0400 Diastolic blood pressure 60 mm[Hg] [facility] 04-01-2024 14:37-0400 Heart rate 71 /min [facility] 04-01-2024 14:37-0400 Respiratory rate 18 /min [facility] 04-01-2024 14:37-0400 SaO2% (BldA) [Mass fraction] 96 % [facility] 04-01-2024 14:37-0400 Systolic blood pressure 149 mm[Hg] [facility] 02-26-2024 10:01-0400 Body mass index (BMI) [Ratio] 33.55 kg/m2 [facility] 02-26-2024 10:01-0400 Body temperature 97.11 [degF] [facility] 02-26-2024 10:01-0400 Body weight 85.91 kg [facility] 02-26-2024 10:01-0400 Diastolic blood pressure 80 mm[Hg] [facility] 02-26-2024 10:01-0400 Heart rate 77 /min [facility] 02-26-2024 10:01-0400 Respiratory rate 16 /min [facility] 02-26-2024 10:01-0400 Systolic blood pressure 165 mm[Hg] [facility] 01-29-2024 09:36-0400 Body mass index (BMI) [Ratio] 34.05 kg/m2 [facility] 01-29-2024 09:36-0400 Body temperature 97.9 [degF] [facility] 01-29-2024 09:36-0400 Body weight 87.18 kg [facility] 01-29-2024 09:36-0400 Diastolic blood pressure 66 mm[Hg] [facility] 01-29-2024 09:36-0400 Heart rate 74 /min [facility] 01-29-2024 09:36-0400 Respiratory rate 18 /min [facility] 01-29-2024 09:36-0400 SaO2% (BldA) [Mass fraction] 97 % [facility] 01-29-2024 09:36-0400 Systolic blood pressure 154 mm[Hg] [facility] 12-31-2023 10:28-0400 Body mass index (BMI) [Ratio] 34.93 kg/m2 [facility] 12-31-2023 10:28-0400 Body temperature 98.1 [degF] [facility] 12-31-2023 10:28-0400 Body weight 89.45 kg [facility] 12-31-2023 10:28-0400 Diastolic blood pressure 61 mm[Hg] [facility] 12-31-2023 10:28-0400 Heart rate 79 /min [facility] 12-31-2023 10:28-0400 Respiratory rate 18 /min [facility] 12-31-2023 10:28-0400 SaO2% (BldA) [Mass fraction] 96 % [facility] 12-31-2023 10:28-0400 Systolic blood pressure 137 mm[Hg] [facility] 11-21-2023 10:58-0400 Body height 160 cm Jennifer Arias MD Work Phone: [facility] 11-21-2023 10:58-0400 Body mass index (BMI) [Ratio] 35.43 kg/m2 Jennifer Arias MD Work Phone: [facility] 11-21-2023 10:58-0400 Body temperature 98.01 [degF] Jennifer Arias MD Work Phone: [facility] 11-21-2023 10:58-0400 Body weight 90.72 kg Jennifer Arias MD Work Phone: [facility] 11-21-2023 10:58-0400 Diastolic blood pressure 82 mm[Hg] Jennifer Arias MD Work Phone: [facility] 11-21-2023 10:58-0400 Heart rate 81 /min Jennifer Arias MD Work Phone: [facility] 11-21-2023 10:58-0400 Respiratory rate 10 /min Jennifer Arias MD Work Phone: [facility] 11-21-2023 10:58-0400 Systolic blood pressure 147 mm[Hg] Jennifer Arias MD Work Phone: [facility] 11-20-2023 10:25-0400 Body temperature 98.2 [degF] [facility] 11-20-2023 10:25-0400 Diastolic blood pressure 65 mm[Hg] [facility] 11-20-2023 10:25-0400 Heart rate 72 /min [facility] 11-20-2023 10:25-0400 Respiratory rate 18 /min [facility] 11-20-2023 10:25-0400 SaO2% (BldA) [Mass fraction] 96 % [facility] 11-20-2023 10:25-0400 Systolic blood pressure 138 mm[Hg] [facility] 10-19-2023 20:04-0400 Body temperature 98.4 [degF] SINAI Arriaga CAR[employer]ON PRINTER Work Phone: [facility] 10-19-2023 20:04-0400 Diastolic blood pressure 59 mm[Hg] SINAI Arriaga [employer]ON PRINTER Work Phone: [facility] 10-19-2023 20:04-0400 Heart rate 75 /min CARBON PRINTERRowan Arriaga CARBON PRINTER Work Phone: [facility] 10-19-2023 20:04-0400 Respiratory rate 20 /min CARBON PRINTER-Marga Arriaga [employer]BON PRINTER Work Phone: [facility] 10-19-2023 20:04-0400 SaO2% (BldA) [Mass fraction] 96 % CARBON PRINTER-Marga Arriaga [employer]ON PRINTER Work Phone: [facility] 10-19-2023 20:04-0400 Systolic blood pressure 148 mm[Hg] CARBON PRINTER-Marga Arriaga CARBON PRINTER Work Phone: [facility] 10-19-2023 15:17-0400 Body height 160.02 cm CARBON PRINTERRowan Arriaga CARBON PRINTER Work Phone: [facility] 10-19-2023 15:17-0400 Body mass index (BMI) [Ratio] 36.1 kg/m2 CARBON PRINTERRowan Arriaga CARBON PRINTER Work Phone: [facility] 10-19-2023 15:17-0400 Body weight 92.4 kg CAR[employer]ON PRINTER-Marga Arriaga [employer]ON PRINTER Work Phone: [facility] 09-26-2023 10:27-0500 Body temperature 97.9 [degF] [facility] 09-26-2023 10:27-0500 Body weight 89.36 kg [facility] 09-26-2023 10:27-0500 Diastolic blood pressure 51 mm[Hg] [facility] 09-26-2023 10:27-0500 Heart rate 78 /min [facility] 09-26-2023 10:27-0500 Respiratory rate 18 /min [facility] 09-26-2023 10:27-0500 SaO2% (BldA) [Mass fraction] 98 % [facility] 09-26-2023 10:27-0500 Systolic blood pressure 151 mm[Hg] [facility] 08-30-2023 13:14-0500 Body temperature 97.5 [degF] [facility] 08-30-2023 13:14-0500 Body weight 89.72 kg [facility] 08-30-2023 13:14-0500 Diastolic blood pressure 74 mm[Hg] [facility] 08-30-2023 13:14-0500 Heart rate 79 /min [facility] 08-30-2023 13:14-0500 Respiratory rate 16 /min [facility] 08-30-2023 13:14-0500 SaO2% (BldA) [Mass fraction] 98 % [facility] 08-30-2023 13:14-0500 Systolic blood pressure 155 mm[Hg] [facility] 07-25-2023 13:54-0500 Diastolic blood pressure 66 mm[Hg] CARBON PRINTER-Marga Arriaga [employer]ON PRINTER Work Phone: [facility] 07-25-2023 13:54-0500 Heart rate 84 /min CARBON PRINTER-Marga Arriaga [employer]ON PRINTER Work Phone: [facility] 07-25-2023 13:54-0500 Respiratory rate 16 /min CARBON PRINTER-Marga Arriaga [employer]BON PRINTER Work Phone: [facility] 07-25-2023 13:54-0500 SaO2% (BldA) [Mass fraction] 98 % CARBON PRINTER-Marga Arriaga [employer]ON PRINTER Work Phone: [facility] 07-25-2023 13:54-0500 Systolic blood pressure 145 mm[Hg] CARBON PRINTER-Marga Arriaga [employer]BON PRINTER Work Phone: [facility] 07-25-2023 12:14-0500 Body height 160.02 cm CARBON PRINTERRowan Arriaga CARBON PRINTER Work Phone: [facility] 07-25-2023 12:14-0500 Body mass index (BMI) [Ratio] 32.8 kg/m2 CARBON PRINTERRowan Arriaga CARBON PRINTER Work Phone: [facility] 07-25-2023 12:14-0500 Body weight 83.91 kg CARBON PRINTERRowan Arriaga CARBON PRINTER Work Phone: [facility] 07-03-2023 11:35-0500 Body weight 85.19 kg Chair Bath Work Phone: [facility] 05-27-2023 13:03-0400 Body temperature 98.29 [degF] Chair Bath Work Phone: [facility] 05-27-2023 13:03-0400 Body weight 83.92 kg Chair Bath Work Phone: [facility] 05-27-2023 13:03-0400 Diastolic blood pressure 73 mm[Hg] Chair Bath Work Phone: [facility] 05-27-2023 13:03-0400 Heart rate 80 /min Chair Bath Work Phone: [facility] 05-27-2023 13:03-0400 Respiratory rate 18 /min Chair Bath Work Phone: [facility] 05-27-2023 13:03-0400 Systolic blood pressure 156 mm[Hg] Chair Bath Work Phone: [facility] 05-21-2023 11:05-0400 Body height 160 cm Sarah Barile PA-C Work Phone: [facility] 05-21-2023 11:05-0400 Body temperature 96.69 [degF] Sarah Barile PA-C Work Phone: [facility] 05-21-2023 11:05-0400 Body weight 84.55 kg Sarah Barile PA-C Work Phone: [facility] 05-21-2023 11:05-0400 Diastolic blood pressure 63 mm[Hg] Sarah Barile PA-C Work Phone: [facility] 05-21-2023 11:05-0400 Heart rate 81 /min Sarah Barile PA-C Work Phone: [facility] 05-21-2023 11:05-0400 SaO2% (BldA) [Mass fraction] 92 % Sarah Barile PA-C Work Phone: [facility] 05-21-2023 11:05-0400 Systolic blood pressure 140 mm[Hg] Sarah Pearson PA-C Work Phone: [facility] 04-25-2023 15:21-0400 Diastolic blood pressure 75 mm[Hg] Bed Bath Work Phone: [facility] 04-25-2023 15:21-0400 Heart rate 68 /min Bed Bath Work Phone: [facility] 04-25-2023 15:21-0400 Systolic blood pressure 127 mm[Hg] Bed Bath Work Phone: [facility] 04-25-2023 15:19-0400 Body weight 83.37 kg Bed Bath Work Phone: [facility] 04-25-2023 12:22-0400 Body height 161.3 cm Bed Bath Work Phone: [facility] 04-25-2023 10:47-0400 Body weight 83.37 kg Bed Bath Work Phone: [facility] 01-24-2023 10:01-0400 SaO2% (BldA) [Mass fraction] 96 % [facility] 01-24-2023 08:57-0400 Body temperature 98.4 [degF] [facility] 08:57-0400 Diastolic blood pressure 41 mm[Hg[facility] 08:57-0400 Heart rate 84 /min MD GIANNI CERVANTES [facility] 01-24-2023 08:57-0400 Respiratory rate 18 /min MD GIANNI CERVANTES [facility] 01-24-2023 08:57-0400 Systolic blood pressure 125 mm[Hg] [facility]-23-2023 12:51-0400 Body height 159.99 cm MD GIANNI HANNABRADLEY [facility] 01-23-2023 12:51-0400 Body mass index (BMI) [Ratio] 34.3 kg/m2 MD GIANNI HANNABRADLEY [facility] 01-23-2023 12:51-0400 Body weight 88 kg MD GIANNI CERVANTES [facility] 01-23-2023 11:15-0400 Inhaled oxygen flow rate 4 L/min MD GIANNI HANNABRADLEY [facility] 11-21-2022 12:57-0400 Body height 160.[address] Selene Pierre Work Phone: [phone] [place] [address] 11-21-2022 12:57-0400 Body mass index (BMI) [Ratio] 34.3 kg/m2 Dr. Selene Pierre Work Phone: [phone] [place] [address] 11-21-2022 12:57-0400 Body weight 87.[address] Selene Pierre Work Phone: 3(156)[phone] [place] [address] 11-21-2022 12:57-0400 Diastolic blood pressure 79 mm[Hg] Dr. Selene Pierre Work Phone: 6(217)[phone] [place] [address] 11-21-2022 12:57-0400 Heart rate 82 /min Dr. Selene Pierre Work Phone: 2(965)946-942363 [place] [address] 11-21-2022 12:57-0400 SaO2% (BldA) [Mass fraction] 92 % Dr. Selene Pierre Work Phone: 7(478)172-293163 [place] [address] 11-21-2022 12:57-0400 Systolic blood pressure 160 mm[Hg] Dr. Selene Pierre Work Phone: 4(513)[phone] [place] [address] 11-06-2022 15:47-0400 Body temperature 97.3 [degF] Dr. Selene Pierre Work Phone: 1(231)592-823263 [place] [address] 11-06-2022 15:47-0400 Diastolic blood pressure 65 mm[Hg] Dr. Selene Pierre Work Phone: 0(592)692-132863 [place] [address] 11-06-2022 15:47-0400 Heart rate 70 /min Dr. Selene Pierre Work Phone: 3(667)468-089663 [place] [address] 11-06-2022 15:47-0400 Respiratory rate 16 /min Dr. Selene Pierre Work Phone: 2(206)201-940463 [place] [address] 11-06-2022 15:47-0400 SaO2% (BldA) [Mass fraction] 100 % Dr. Selene Pierre Work Phone: [facility] 11-06-2022 15:47-0400 Systolic blood pressure 148 mm[Hg] Dr. Selene Pierre Work Phone: [facility] 11-06-2022 13:10-0400 Body height 160.[address] Selene Pierre Work Phone: [facility] 11-06-2022 13:10-0400 Body mass index (BMI) [Ratio] 32.8 kg/m2 Dr. Selene Pierre Work Phone: [facility] 11-06-2022 13:10-0400 Body weight [address] Selene Pierre Work Phone: [facility] 11-02-2022 10:26-0400 Body temperature 97.2 [degF] [facility] 11-02-2022 10:26-0400 Body weight 86.91 kg [facility] 11-02-2022 10:26-0400 Diastolic blood pressure 67 mm[Hg] [facility] 11-02-2022 10:26-0400 Heart rate 75 /min [facility] 11-02-2022 10:26-0400 SaO2% (BldA) [Mass fraction] 97 % [facility] 11-02-2022 10:26-0400 Systolic blood pressure 134 mm[Hg] [facility] 10-18-2022 11:56-0400 Body height 161.3 cm Jennifer Arias MD Work Phone: [facility] 10-18-2022 11:56-0400 Body temperature 96.01 [degF] Jennifer Arias MD Work Phone: [facility] 10-18-2022 11:56-0400 Body weight 87.54 kg Jennifer Arias MD Work Phone: [facility] 10-18-2022 11:56-0400 Diastolic blood pressure 50 mm[Hg] Jennifer Arias MD Work Phone: [facility] 10-18-2022 11:56-0400 Heart rate 71 /min Jennifer Arias MD Work Phone: [facility] 10-18-2022 11:56-0400 SaO2% (BldA) [Mass fraction] 96 % Jennifer Arias MD Work Phone: [facility] 10-18-2022 11:56-0400 Systolic blood pressure 141 mm[Hg] Jennifer Arias MD Work Phone: [facility] 09-19-2022 10:25-0500 Body height 160.[address] Selene Pierre Work Phone: [facility] 09-19-2022 10:25-0500 Body mass index (BMI) [Ratio] 34.3 kg/m2 Dr. Selene Pierre Work Phone: [facility] 09-19-2022 10:25-0500 Body weight 87.[address] Selene Pierre Work Phone: [facility] 09-19-2022 10:25-0500 Diastolic blood pressure 73 mm[Hg] Dr. Selene Pierre Work Phone: [facility] 09-19-2022 10:25-0500 Heart rate 76 /min Dr. Selene Pierre Work Phone: [facility] 09-19-2022 10:25-0500 SaO2% (BldA) [Mass fraction] 96 % Dr. Selene Pierre Work Phone: [facility] 09-19-2022 10:25-0500 Systolic blood pressure 114 mm[Hg] Dr. Selene Pierre Work Phone: [facility] 09-12-2022 16:21-0500 Body temperature 97.1 [degF] Dr. Selene Pierre Work Phone: [facility] 09-12-2022 16:21-0500 Diastolic blood pressure 74 mm[Hg] Dr. Selene Pierre Work Phone: [facility] 09-12-2022 16:21-0500 Heart rate 80 /min Dr. Selene Pierre Work Phone: [facility] 09-12-2022 16:21-0500 Respiratory rate 14 /min Dr. Selene Pierre Work Phone: [facility] 09-12-2022 16:21-0500 SaO2% (BldA) [Mass fraction] 95 % Dr. Selene Pierre Work Phone: [facility] 09-12-2022 16:21-0500 Systolic blood pressure 130 mm[Hg] Dr. Selene Pierre Work Phone: [facility] 08-15-2022 10:24-0500 Body height 160.[address] Selene Pierre Work Phone: [facility] 08-02-2022 10:50-0500 Heart rate 68 /min Leilani Colmenares [employer]RO[employer] EMERGENCY SERVICES MANAGER.FOLDER TIER Work Phone: [facility] 08-02-2022 10:50-0500 Respiratory rate 16 /min Leilani Colmenares [employer]RO[employer] EMERGENCY SERVICES MANAGER.FOLDER TIER Work Phone: [facility] 08-02-2022 10:50-0500 SaO2% (BldA) [Mass fraction] 95 % Leilani Colmenares [employer]ILRO[employer] EMERGENCY SERVICES MANAGER.FOLDER TIER Work Phone: [facility] 07-17-2022 11:32-0500 Body temperature 97.3 [degF] Chair Bath Work Phone: [facility] 07-17-2022 11:32-0500 Body weight 90.9 kg Chair Bath Work Phone: [facility] 07-17-2022 11:32-0500 Diastolic blood pressure 82 mm[Hg] Chair Bath Work Phone: [facility] 07-17-2022 11:32-0500 Heart rate 75 /min Chair Bath Work Phone: [facility] 07-17-2022 11:32-0500 SaO2% (BldA) [Mass fraction] 97 % Chair Bath Work Phone: [facility] 07-17-2022 11:32-0500 Systolic blood pressure 174 mm[Hg] Chair Bath Work Phone: [facility] 07-13-2022 09:06-0500 Body temperature 97.9 [degF] Dr. Selene Pierre Work Phone: [facility] 07-13-2022 09:06-0500 Diastolic blood pressure 78 mm[Hg] Dr. Selene Pierre Work Phone: [facility] 07-13-2022 09:06-0500 Heart rate 76 /min Dr. Selene Pierre Work Phone: [facility] 07-13-2022 09:06-0500 Respiratory rate 17 /min Dr. Selene Pierre Work Phone: [facility] 07-13-2022 09:06-0500 SaO2% (BldA) [Mass fraction] 94 % Dr. Selene Pierre Work Phone: [facility] 07-13-2022 09:06-0500 Systolic blood pressure 130 mm[Hg] Dr. Selene Pierre Work Phone: [facility] 06-26-2022 13:48-0500 Body height 160 cm Sarah Barile PA-C Work Phone: [facility] 06-26-2022 13:48-0500 Body temperature 97.81 [degF] Sarah Barile PA-C Work Phone: [facility] 06-26-2022 13:48-0500 Body weight 91.63 kg Sarah Barile PA-C Work Phone: [facility] 06-26-2022 13:48-0500 Diastolic blood pressure 78 mm[Hg] Sarah Barile PA-C Work Phone: [facility] 06-26-2022 13:48-0500 Heart rate 96 /min Sarah Barile PA-C Work Phone: [facility] 06-26-2022 13:48-0500 Respiratory rate 16 /min Sarah Pearson PA-C Work Phone: [facility] 06-26-2022 13:48-0500 Systolic blood pressure 140 mm[Hg] Sarah Pearson PA-C Work Phone: [facility] 05-16-2022 09:20-0400 Body temperature 97.59 [degF] Sarah De Luna [employer]ILRO[employer] EMERGENCY SERVICES MANAGER.FOLDER TIER Work Phone: [facility] 05-16-2022 09:20-0400 Body weight 93.89 kg Sarah Friaser [employer]ILRO[employer] EMERGENCY SERVICES MANAGER.FOLDER TIER Work Phone: [facility] 05-16-2022 09:20-0400 Diastolic blood pressure 72 mm[Hg] Sarah De Luna RAILROAD EMERGENCY SERVICES MANAGER.FOLDER TIER Work Phone: [facility] 05-16-2022 09:20-0400 Heart rate 98 /min Sarahbenito Friaser [employer]ILROAD EMERGENCY SERVICES MANAGER.FOLDER TIER Work Phone: [facility] 05-16-2022 09:20-0400 Respiratory rate 18 /min Sarah De Luna RAILROAD EMERGENCY SERVICES MANAGER.FOLDER TIER Work Phone: [facility] 05-16-2022 09:20-0400 SaO2% (BldA) [Mass fraction] 99 % Sarah De Luna [employer]ILRO[employer] EMERGENCY SERVICES MANAGER.FOLDER TIER Work Phone: [facility] 05-16-2022 09:20-0400 Systolic blood pressure 138 mm[Hg] Sarah Friaser [employer]ILRO[employer] EMERGENCY SERVICES MANAGER.FOLDER TIER Work Phone: [facility] 05-03-2022 11:33-0400 Body weight 96.44 kg Bed Bath Work Phone: [facility] 04-05-2022 13:13-0400 Body temperature 97.9 [degF] Bed Bath Work Phone: [facility] 04-05-2022 13:13-0400 Diastolic blood pressure 71 mm[Hg] Bed Bath Work Phone: [facility] 04-05-2022 13:13-0400 Heart rate 74 /min Bed Bath Work Phone: [facility] 04-05-2022 13:13-0400 Respiratory rate 19 /min Bed Bath Work Phone: [facility] 04-05-2022 13:13-0400 Systolic blood pressure 141 mm[Hg] Bed Bath Work Phone: [facility] 03-05-2022 12:58-0400 Body temperature 97.9 [degF] Chair Bath [facility] 03-05-2022 12:58-0400 Body weight 99.16 kg Chair Bath [facility] 03-05-2022 12:58-0400 Diastolic blood pressure 56 mm[Hg] Chair Bath [facility] 03-05-2022 12:58-0400 Heart rate 87 /min Chair Bath [facility] 03-05-2022 12:58-0400 Respiratory rate 20 /min Chair Bath [facility] 03-05-2022 12:58-0400 Systolic blood pressure 142 mm[Hg] Chair Bath [facility] 02-01-2022 09:20-0400 Heart rate 60 /min Leilani Colmenares [employer]ILRO[employer] EMERGENCY SERVICES MANAGER.FOLDER TIER Work Phone: [facility] 02-01-2022 09:20-0400 Respiratory rate 16 /min Leilani Colmenares RAILRO[employer] EMERGENCY SERVICES MANAGER.FOLDER TIER Work Phone: [facility] 02-01-2022 09:20-0400 SaO2% (BldA) [Mass fraction] 95 % Leilani Colmenares [employer]ILRO[employer] EMERGENCY SERVICES MANAGER.FOLDER TIER Work Phone: [facility] 12-28-2021 11:07-0400 Body temperature 97.5 [degF] Chair Bath Work Phone: [facility] 12-28-2021 11:07-0400 Body weight 96.16 kg Chair Bath Work Phone: [facility] 12-28-2021 11:07-0400 Diastolic blood pressure 79 mm[Hg] Chair Bath Work Phone: [facility] 12-28-2021 11:07-0400 Heart rate 75 /min Chair Bath Work Phone: [facility] 12-28-2021 11:07-0400 Respiratory rate 18 /min Chair Bath Work Phone: [facility] 12-28-2021 11:07-0400 Systolic blood pressure 156 mm[Hg] Chair Bath Work Phone: [facility] 11-30-2021 10:16-0400 Body temperature 97.5 [degF] Chair Bath [facility] 11-30-2021 10:16-0400 Body weight 95.94 kg Chair Bath [facility] 11-30-2021 10:16-0400 Diastolic blood pressure 51 mm[Hg] Chair Bath [facility] 11-30-2021 10:16-0400 Heart rate 90 /min Chair Bath [facility] 11-30-2021 10:16-0400 Respiratory rate 18 /min Chair Bath [facility] 11-30-2021 10:16-0400 Systolic blood pressure 140 mm[Hg] Chair Bath [facility] 11-02-2021 10:54-0400 Body temperature 97.5 [degF] Chair Bath Work Phone: [facility] 11-02-2021 10:54-0400 Body weight 95.62 kg Chair Bath Work Phone: [facility] 11-02-2021 10:54-0400 Diastolic blood pressure 79 mm[Hg] Chair Bath Work Phone: [facility] 11-02-2021 10:54-0400 Heart rate 86 /min Chair Bath Work Phone: [facility] 11-02-2021 10:54-0400 Respiratory rate 18 /min Chair Bath Work Phone: [facility] 11-02-2021 10:54-0400 Systolic blood pressure 126 mm[Hg] Chair Bath Work Phone: [facility] 09-01-2021 16:22-0500 Respiratory rate 18 /min SONG ALMEIDA MD [facility] 09-01-2021 15:04-0500 Heart rate 106 /min SONG ALMEIDA MD [facility] 09-01-2021 15:04-0500 Respiratory rate 20 /min SONG ALMEIDA MD [facility] 09-01-2021 10:11-0500 Heart rate 90 /min SONG ALMEIDA MD [facility] 09-01-2021 10:11-0500 Respiratory rate 18 /min SONG ALMEIDA MD [facility] 09-01-2021 08:06-0500 Body temperature 97.88 [degF] SONG ALMEIDA MD [facility] 09-01-2021 08:06-0500 Diastolic blood pressure 60 mm[Hg] SONG ALMEIDA MD [facility] 09-01-2021 08:06-0500 Heart rate 87 /min SONG ALMEIDA MD [facility] 09-01-2021 08:06-0500 Mean blood pressure 81 mm[Hg] SONG ALMEIDA MD [facility] 09-01-2021 08:06-0500 Reason For Taking VItal Signs SONG ALMEIDA MD [facility] 09-01-2021 08:06-0500 Systolic blood pressure 124 mm[Hg] SONG ALMEIDA MD [facility] 09-01-2021 00:09-0500 Body temperature 98.06 [degF] SONG ALMEIDA MD [facility] 09-01-2021 00:09-0500 Diastolic blood pressure 62 mm[Hg] SONG ALMEIDA MD [facility] 09-01-2021 00:09-0500 Reason For Taking VItal Signs SONG ALMEIDA MD [facility] 09-01-2021 00:09-0500 Systolic blood pressure 122 mm[Hg] SONG ALMEIDA MD [facility] 08-31-2021 20:05-0500 Body temperature 98.24 [degF] SONG ALMEIDA MD [facility] 08-31-2021 20:05-0500 Diastolic blood pressure 59 mm[Hg] SONG ALMEIDA MD [facility] 08-31-2021 20:05-0500 Systolic blood pressure 115 mm[Hg] SONG ALMEIDA MD [facility] 08-31-2021 04:04-0500 Heart rate 90 /min SONG ALMEIDA MD [facility] 08-30-2021 19:04-0500 Heart rate 90 /min SONG ALMEIDA MD [facility] 08-30-2021 15:55-0500 Heart rate 90 /min SONG ALMEIDA MD [facility] 08-29-2021 18:28-0500 Body temperature 97.52 [degF] SONG ALMEIDA MD [facility] 08-29-2021 18:28-0500 Diastolic Blood Pressure NBP 65 1 SONG ALMEIDA MD [facility] 08-29-2021 18:28-0500 Mean blood pressure 90 mm[Hg] SONG ALMEIDA MD [facility] 08-29-2021 18:28-0500 Systolic Blood Pressure NBP 155 1 SONG ALMEIDA MD [facility] 08-29-2021 18:15-0500 Diastolic Blood Pressure NBP 59 1 SONG ALMEIDA MD [facility] 08-29-2021 18:15-0500 Mean blood pressure 84 mm[Hg] SONG ALMEIDA MD [facility] 08-29-2021 18:15-0500 Systolic Blood Pressure NBP 154 1 SONG ALMEIDA MD [facility] 08-29-2021 18:00-0500 Diastolic Blood Pressure NBP 64 1 SONG ALMEIDA MD [facility] 08-29-2021 18:00-0500 Systolic Blood Pressure NBP 143 1 SONG ALMEIDA MD [facility] 08-29-2021 17:33-0500 Body temperature 97.7 [degF] SONG ALMEIDA MD [facility] 08-29-2021 17:20-0500 Body temperature 97.66 [degF] SONG ALMEIDA MD [facility] 08-29-2021 17:15-0500 Body temperature 97.63 [degF] SONG ALMEIDA MD [facility] 08-29-2021 17:10-0500 Body temperature 97.57 [degF] SONG ALMEIDA MD [facility] 08-29-2021 02:41-0500 Body weight 37.89 kg/m2 SONG ALMEIDA MD [facility] 08-29-2021 02:04-0500 Body height 160 cm SONG ALMEIDA MD [facility] 08-29-2021 02:04-0500 Body weight 97 kg SONG ALMEIDA MD [facility] 08-29-2021 02:04-0500 Body weight 37.89 kg/m2 SONG ALMEIDA MD [facility] Encounters Encounter Date Encounter Type Care Provider Facility Start: 04-02-2025 ambulatory Michelle Gan ty:[facility] Start: 04-01-2025 ambulatory Michelle Gan ty:[facility] Start: 03-19-2025 End: 03-19-2025 Telephone encounter oJsh Bennett DO Work Phone: Hematology/Oncology Comment on above: AVS 03/19 Start: 03-19-2025 End: 03-19-2025 Patient encounter procedure Josh Bennett DO Work Phone: Hematology/Oncology Start: 03-19-2025 End: 03-19-2025 ambulatory Lab/[facility] Work Phone: Hematology/Oncology Comment on above: Iron deficiency anem ia due to chronic blood loss Malignant neoplasm o f anus (HCC) (Primary Dx); Iron 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 blood loss Start: 03-18-2025 End: 03-18-2025 ambulatory Treatment Rm 15 [facility] Work Phone: Hematology/Oncology Comment on above: Other osteoporosis w ithout current pathological fracture (Primary Dx); Rheumatoid arthritis involving multiple sites with positive rheumatoid factor (HCC) Start: 03-16-2025 End: 03-16-2025 Patient encounter procedure Michelle AGARWALC -[facility] Work Phone: Start: 03-16-2025 End: 03-16-2025 ambulatory Woo Thapa MD Work Phone: -[facility] Start: 03-02-2025 ambulatory Kenya Gacria Facility :[facility] Start: 03-02-2025 Non-patient / Non-visit Dr. Ronny NEWMAN -[facility] Start: 03-02-2025 End: 03-02-2025 Admission to same day surgery center Dr. Kenya Garcia MD -Endoscopy Work Phone: Start: 03-02-2025 End: 03-02-2025 ambulatory Woo Thapa MD Work Phone: -Endoscopy Start: 02-28-2025 ambulatory Julio [facility] Start: 02-27-2025 End: 02-27-2025 Emergency department patient visit Julio AGARWALC Work Phone: -Emergency Department Work Phone: Start: 02-18-2025 End: 02-18-2025 ambulatory Treatment Rm 18 [facility] Work Phone: Hematology/Oncology Comment on above: Other osteoporosis w ithout current pathological fracture (Primary Dx); Rheumatoid arthritis involving multiple sites with positive rheumatoid factor (HCC) Start: 02-17-2025 End: 02-17-2025 Telephone encounter Josh Bennett DO Work Phone: Hematology/Oncology Comment on above: Appointment Start: 02-15-2025 End: 02-15-2025 Telephone encounter Delvin Ron APRN.FOLDER TIER Work Phone: Hematology/Oncology Comment on above: Patient Question Start: 02-09-2025 End: 02-10-2025 Telephone encounter Delvin Ron FOLDER TIER Work Phone: Hematology/Oncology Start: 02-09-2025 End: 02-09-[address] Kenya Garcia MD -[facility] Work Phone: Start: 02-09-2025 End: 02-09-2025 ambulatory Julio Arriaga NP-C Work Phone: -[facility] Start: 02-05-2025 End: 02-05-2025 ambulatory Treatment Rm 16 [facility] Work Phone: Hematology/Oncology Comment on above: Other osteoporosis w ithout current pathological fracture (Primary Dx); Rheumatoid arthritis involving multiple sites with positive rheumatoid factor (HCC) Start: 02-03-2025 End: 02-03-2025 Refill Jennifer Arias MD Work Phone: [facility] Comment on above: Refill Request Start: 02-02-2025 End: 02-02-2025 Patient encounter procedure Michelle AGARWALC -[facility] Work Phone: Start: 02-02-2025 End: 02-02-2025 ambulatory Julio Arriaga CARBON PRINTER-C Work Phone: -[facility] Start: 02-01-2025 End: 02-01-2025 Subsequent hospital visit by physician [facility] (I-Stat/1.5t) Work Phone: Radiology Comment on above: Malignant neoplasm o f anus (HCC) [C21.0] Start: 02-01-2025 End: 02-01-2025 ambulatory Lab/[facility] Work Phone: Hematology/Oncology Comment on above: Anal cancer (HCC) Start: 01-26-2025 Non-patient / Non-visit Dr. Yony Scott MD -[facility] Work Phone: Start: 01-14-2025 End: 01-14-2025 Patient encounter procedure Michelle ECHEVARRIA -[facility] Work Phone: Start: 01-14-2025 End: 01-14-2025 ambulatory Julio ECHEVARRIA Work Phone: [facility] Work Phone: Comment on above: Crohn's disease with out complication, unspecified gastrointestinal tract location (HCC) (Primary Dx); Irritable bowel syndrome with diarrhea Start: 01-13-2025 End: 01-13-2025 Refill Jennifer Arias MD Work Phone: [facility] Comment on above: Refill Request Start: 01-07-2025 End: 01-07-2025 ambulatory Treatment Rm 15 [facility] Work Phone: Hematology/Oncology Comment on [...] Phone: Start: 12-14-2024 ambulatory Andrez Pitts Facility :[facility] Start: 12-11-2024 End: 12-11-2024 Telephone encounter Jennifer Arias MD Work Phone: Hematology/Oncology Comment on above: Patient Update Start: 12-10-2024 End: 12-10-2024 Refill Sarah Pearson PA-C Work Phone: [facility] Comment on above: Refill Request Start: 12-07-2024 End: 12-07-2024 ambulatory SIDNEY JOYA Facility:[facility] Start: 12-07-2024 End: 12-07-2024 Follow-up encounter Sidney Joya MD Work Phone: Radiation Oncology Comment on above: Radiotherapy follow- up (Primary Dx); Anal cancer (HCC) Start: 12-07-2024 End: 12-07-2024 Telemedicine consultation with patient Sidney Joya MD Work Phone: Radiation Oncology Start: 12-04-2024 End: 12-04-2024 Telephone encounter Jennifer Arias MD Work Phone: [facility] Comment on above: Patient Update Start: 11-30-2024 End: 12-10-2024 Telephone encounter [facility] Provider Hematology/Oncology Comment on above: Appointment (Reclast ) 11/30 AVS Start: 11-30-2024 End: 11-30-2024 Telemedicine consultation with patient Jennifer Arias MD Work Phone: [facility] Start: 11-30-2024 End: 11-30-2024 ambulatory JENNIFER ARIAS Facility:[facility] Start: 11-30-2024 End: 11-30-2024 Patient encounter procedure Jennifer Arias MD Work Phone: [facility] Comment on above: Rheumatoid arthritis involving multiple sites with positive rheumatoid factor (HCC) (Primary Dx); Rheumatoid arthritis involving multiple sites, unspecified whether rheumatoid factor present (HCC); Other osteoporosis without current pathological fracture Start: 11-30-2024 End: 11-30-2024 ambulatory Lab/[facility] Work Phone: Hematology/Oncology Comment on above: Anal cancer (HCC) Anal cancer (HCC) (P rimary Dx) Start: 11-26-2024 End: 11-26-2024 Refill Josh Bennett DO Work Phone: Hematology/Oncology Comment on above: Refill Request Start: 11-23-2024 End: 11-23-2024 ambulatory JULIO ARRIAGA Facility:[facility] Start: 11-18-2024 End: 11-18-2024 Refill Josh Bennett [...] Start: 11-13-2024 End: 11-13-2024 ambulatory SIDNEY JOYA Facility:[facility] Start: 11-12-2024 End: 11-12-2024 ambulatory JULIO ARRIAGA Facility:[facility] Start: 11-11-2024 End: 11-11-2024 ambulatory SIDNEY JOYA Facility:[facility] Start: 11-10-2024 End: 11-10-2024 Patient encounter procedure Sidney Joya MD Work Phone: Radiation Oncology Comment on above: Anal cancer (HCC) (P rimary Dx) Start: 11-10-2024 End: 11-10-2024 ambulatory JULIO ARRIAGA Facility:[facility] Start: 11-09-2024 End: 11-09-2024 Patient encounter procedure Delvin Ron RAILROAD EMERGENCY SERVICES MANAGER.FOLDER TIER Work Phone: Hematology/Oncology Start: 11-09-2024 End: 11-09-2024 ambulatory [facility] Work Phone: Hematology/Oncology Comment on above: Anal cancer (HCC) (P rimary Dx) Anal cancer (HCC) (P rimary Dx); Chemotherapy induced nausea and vomiting Start: 11-06-2024 End: 11-06-2024 ambulatory [facility] Work Phone: Hematology/Oncology Comment on above: Anal cancer (HCC) (P rimary Dx) Start: 11-05-2024 End: 11-05-2024 Telephone encounter Raul ALVARENGA Hematology/Oncology Comment on above: Social Work Services ; Financial Concerns Start: 11-05-2024 End: 11-05-2024 ambulatory JULIO ARRIAGA Facility:[facility] Start: 11-04-2024 End: 11-04-2024 ambulatory JULIO ARRIAGA Facility:[facility] Start: 11-03-2024 End: 11-03-2024 Patient encounter procedure Sidney Joya MD Work Phone: Radiation Oncology Comment on above: Anal cancer (HCC) (P rimary Dx) Start: 11-03-2024 End: 11-03-2024 ambulatory JULIO ARRIAGA Facility:[facility] Start: 11-02-2024 End: 11-02-2024 ambulatory Treatment Rm 8 [facility] Work Phone: Hematology/Oncology Comment on above: Anal [...] Start: 10-29-2024 End: 10-29-2024 ambulatory JULIO ARRIAGA Facility:[facility] Start: 10-28-2024 End: 10-28-2024 Telephone encounter Sidney Joya MD Work Phone: Radiation Oncology Comment on above: Patient Update Start: 10-28-2024 End: 10-28-2024 ambulatory JULIO ARRIAGA Facility:[facility] Start: 10-27-2024 End: 10-27-2024 Patient encounter procedure Ricci Abreu MD Work Phone: Radiation Oncology Comment on above: Anal cancer (HCC) (P rimary Dx) Start: 10-27-2024 End: 10-27-2024 ambulatory JULIO ARRIAGA Facility:[facility] Start: 10-26-2024 End: 10-26-2024 Telephone encounter Melisa Ledesma MD Work Phone: Radiation Oncology Comment on above: Patient Update Radiology Pre Proced ure Instructions Patient Question Start: 10-26-2024 End: 10-26-2024 ambulatory JULIO ARRIAGA Facility:[facility] Start: 10-24-2024 End: 10-25-2024 Emergency department patient visit Julio Arriaga [employer] PRINTER-C Work Phone: -Emergency Department Work Phone: Start: 10-23-2024 End: 10-23-2024 ambulatory SIDNEY JOYA Facility:[facility] Start: 10-22-2024 End: 10-22-2024 ambulatory Josh Bennett DO Work Phone: Hematology/Oncology Comment on above: Unine specimen Atten tion Roxanne Start: 10-21-2024 End: 10-26-2024 Telephone encounter Josh Bennett DO Work Phone: Hematology/Oncology Comment on above: Appointment Urinary Problem; Pat ient Update Start: 10-21-2024 End: 10-21-2024 ambulatory XILUKAS TOAN Facility:[facility] Start: 10-20-2024 End: 10-20-2024 Patient encounter procedure Shawn Beltran MD Work Phone: Radiation Oncology Comment on above: Anal cancer (HCC) (P rimary Dx) Start: 10-20-2024 End: 10-21-2024 ambulatory Josh Bennett DO Work Phone: Hematology/Oncology Comment on above: PICC line or port Start: 10-19-2024 Non-patient / Non-visit Dr. Lincoln starks MD -[facility] Start: 10-19-2024 End: 10-19-[address] Josh Bennett DO -Cardiovascular Services Work Phone: Start: 10-19-2024 End: 10-19-2024 Orders Only Josh Bennett DO Work Phone: Hematology/Oncology Comment on above: Arm swelling (Primar y Dx); Anal cancer (HCC); PICC (peripherally inserted central catheter) in place Results Anal cancer (HCC) (P rimary Dx) Start: 10-19-2024 End: 10-19-2024 ambulatory Josh Bennett Facility:[facility] Start: 10-16-2024 End: 10-16-2024 Telephone encounter Josh Bennett DO Work Phone: Hematology/Oncology Comment on above: Patient Update (vomi ting and diarrhea) Start: 10-16-2024 End: 10-16-2024 ambulatory Treatment 17 [facility] Work Phone: Hematology/Oncology Comment on above: Anal cancer (HCC) (P rimary Dx) Start: 10-15-2024 End: 10-15-2024 ambulatory SIDNEY JOYA Facility:[facility] Start: 10-14-2024 ambulatory Julio Arriaga CARBON PRINTER Facil ity:[facility] Start: 10-14-2024 End: 10-14-2024 ambulatory JULIO ARRIAGA Facility:[facility] Start: 10-13-2024 End: 10-13-2024 Patient encounter procedure Sidney Joya MD Work Phone: Radiation Oncology Comment on above: Anal cancer (HCC) (P rimary Dx) Start: 10-13-2024 End: 10-13-2024 ambulatory Treatment Rm 17 [facility] Work Phone: Hematology/Oncology Comment on above: Anal cancer (HCC) (P rimary Dx) Start: 10-12-2024 End: 10-12-2024 Telephone encounter Josh Bennett DO Work Phone: Hematology/Oncology Comment on above: Patient Update Start: 10-12-2024 End: 10-12-2024 ambulatory Lab/Port [facility] Work Phone: Hematology/Oncology Comment on above: Anal cancer (HCC) Start: 10-12-2024 End: 10-12-2024 ambulatory JULIO ARRIAGA Facility:[facility] Start: 10-09-2024 End: 10-09-2024 ambulatory Lab/[facility] Work Phone: Hematology/Oncology Comment on above: Anal cancer (HCC) (P rimary Dx) Start: 10-08-2024 End: 10-08-2024 Telephone encounter Roxanne Bland RN Hematology/Oncology Comment on above: 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 ) Start: 10-08-2024 End: 10-08-2024 ambulatory Lab/[facility] Work Phone: Hematology/Oncology Comment on above: Anal cancer (HCC) (P rimary Dx) Start: 10-07-2024 End: 12-07-2024 Follow-up encounter Juan José Cheema MD Work Phone: OB/Gynecology Start: 10-07-2024 End: 10-07-2024 ambulatory Treatment Rm 16 [facility] Work Phone: Hematology/Oncology Comment on above: Anal cancer (HCC) (P rimary Dx) Start: 10-06-2024 End: 10-06-2024 Telephone encounter Roxanne Bland RN Hematology/Oncology 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: 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 Post Treatment Call (5FU/Mitomycin) ) Start: 10-06-2024 End: 10-06-2024 ambulatory JULIO ARRIAGA Facility:[facility] Start: 10-06-2024 End: 10-06-2024 Patient encounter procedure Sidney Joya MD Work Phone: Radiation Oncology Comment on above: Anal cancer (HCC) (P rimary Dx) Start: 10-05-2024 End: 12-05-2024 Follow-up encounter Juan José Cheema MD Work Phone: OB/Gynecology Start: 10-05-2024 End: 10-05-2024 ambulatory JULIO ARRIAGA Facility:[facility] Start: 10-05-2024 End: 10-05-2024 ambulatory Treatment Rm 7 [facility] Work Phone: Hematology/Oncology Comment on above: Anal cancer (HCC) (P rimary Dx) Start: 10-02-2024 End: 10-02-2024 ambulatory Julio Arriaga [employer]INTER-C Work Phone: [facility] Work Phone: Start: 10-02-2024 End: 10-02-[address] Josh Bennett DO -Radiology, [facility] Work Phone: Start: 10-02-2024 End: 10-02-2024 ambulatory Josh Bennett Facility:[facility] Start: 09-30-2024 End: 09-30-2024 ambulatory JULIO ARRIAGA Facility:[facility] Start: 09-30-2024 Encounter for gynecological examination (general) (routine) without abnormal findings SHAWN BELTRAN [facility] Start: 09-30-2024 End: 09-30-2024 Subsequent hospital visit by physician Screen Mammo [facility] Mammogram Comment on above: Encounter for gyneco logical examination (general) (routine) without abnormal findings [Z01.419] Start: 09-30-2024 End: 09-30-2024 ambulatory JOSH BENNETT Facility:[facility] Start: 09-30-2024 End: 09-30-2024 Patient encounter procedure [...] status Juan José Cheema MD Work Phone: [facility] Start: 09-29-2024 End: 10-03-2024 Radiation Oncology Note Sidney Joya MD Work Phone: Radiation Oncology Comment on above: Simulation Note Treatment Planning Start: 09-29-2024 End: 10-06-2024 Patient encounter procedure Sarah Pearson CYMadayMarga Work Phone: [facility] Rheumatology and Arthritis Comment on above: Rheumatoid arthritis involving multiple sites with positive rheumatoid factor (HCC) (Primary Dx); High risk medication use; Vitamin D deficiency; Localized osteoporosis without current pathological fracture; Iron deficiency anemia, unspecified iron deficiency anemia type Start: 09-29-2024 End: 09-29-2024 Telemedicine consultation with patient Sarah Pearson LIZZIE Work Phone: [facility] Rheumatology and Arthritis Start: 09-29-2024 End: 09-30-2024 ambulatory Raul ALVARENGA Hematology/Oncology Start: 09-28-2024 End: 09-29-2024 ambulatory Sarah Pearson LIZZIE Work Phone: [facility] Comment on above: September 29, 2024 appt Start: 09-28-2024 End: 10-02-2024 Telephone encounter Sarah Ingrambhupendra SAMUEL Work Phone: [facility] Comment on above: appointment change Anal cancer (HCC) (P rimary Dx) Start: 09-25-2024 End: 09-25-2024 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 Pawel Cason MD -Emergency Department Work Phone: Start: 09-24-2024 End: 09-24-2024 ambulatory JULIO ARRIAGA Facility:[facility] Start: 09-24-2024 End: 09-24-2024 Patient encounter procedure Kimmy Dixon APRN.CNP Work Phone: [facility] Comment on above: Urinary frequency (P rimary Dx); Pain Start: 09-24-2024 End: 10-07-2024 Telephone encounter Josh Bennett DO Work Phone: Hematology/Oncology Comment on above: Results Start: 09-23-2024 End: 09-23-2024 ambulatory JOSH Froy SABRINA Facility:[facility] Start: 09-23-2024 End: 09-23-2024 Subsequent hospital visit by physician Mri Radio [facility] (I-Stat/1.5t) Work Phone: Radiology Comment on above: Anal cancer (HCC) [C 21.0] Start: 09-22-2024 End: 09-22-2024 Telephone encounter Josh Bennett DO Work Phone: Hematology/Oncology Comment on above: Results Start: 09-18-2024 End: 09-18-2024 Telephone encounter Raul ALVARENGA Hematology/Oncology Comment on above: Social Work Services Start: 09-17-2024 End: 09-17-2024 ambulatory JOSH BENNETT Facility:[facility] Start: 09-17-2024 End: 09-17-2024 Patient encounter procedure [...] Telephone encounter Jennifer Arias MD Work Phone: [facility] Rheumatology and Arthritis Comment on above: Patient Question Start: 09-09-2024 End: 09-09-2024 Refill Sarah Pearson PA-C Work Phone: [facility] Rheumatology and Arthritis Comment on above: Refill Request Start: 09-07-2024 End: 09-07-2024 Telephone encounter Josh Bennett DO Work Phone: Hematology/Oncology Comment on above: Appointment Start: 09-03-2024 Non-patient / Non-visit Dr. Ronny NEWMAN -[facility] Start: 09-02-2024 ambulatory Kenya Garcia Facility :[facility] Start: 09-02-2024 Non-patient / Non-visit Dr. Ronny NEWMAN -[facility] Start: 09-02-2024 End: 09-03-2024 ambulatory Kenya Garcia Facility:[facility] Start: 09-02-2024 End: 09-03-2024 Evaluation and management of inpatient Dr. Kenya Garcia MD -Medical Surgical 3 Work Phone: Start: 09-02-2024 End: 09-02-2024 ambulatory JULIO ARRIAGA Facility:[facility] Start: 09-02-2024 End: 09-02-2024 Patient encounter procedure Kimmy Dixon APRN.FOLDER TIER Work Phone: [facility] Comment on above: Rectal pain (Primary Dx) Start: 08-27-2024 End: 08-27-2024 Patient encounter procedure Andrez Pitts DO -[facility] Work Phone: Start: 08-27-2024 End: 08-27-2024 ambulatory Andrez Pitts Facility:[facility] Start: 08-20-2024 End: 08-20-2024 ambulatory JOSH BENNETT Facility:[facility] Start: 08-20-2024 End: 08-20-2024 Subsequent hospital visit by physician Bone Density [facility] Work Phone: Radiology Comment on above: Osteoporosis, unspec ified osteoporosis type, unspecified pathological fracture presence [M81.0] Start: 08-17-2024 End: 08-17-2024 Telephone encounter Josh Bennett DO Work Phone: Hematology/Oncology Comment on above: Appointment Start: 07-02-2024 End: 07-02-2024 ambulatory Treatment Rm 15 [facility] Work Phone: Hematology/Oncology Comment on above: Iron deficiency anem ia due to chronic blood loss (Primary Dx); Iron malabsorption Start: 06-29-2024 End: 06-29-2024 ambulatory JULIO ARRIAGA [facility] Start: 06-24-2024 End: 06-24-2024 ambulatory Treatment Rm 15 [facility] Work Phone: Hematology/Oncology Comment on above: Iron deficiency anem ia due to chronic blood loss (Primary Dx); Iron malabsorption Start: 06-18-2024 End: 06-18-2024 ambulatory Treatment Rm 17 [facility] Work Phone: Hematology/Oncology Comment on above: Rheumatoid arthritis involving multiple sites with positive rheumatoid factor (HCC) (Primary Dx); Iron 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 blood loss; Iron malabsorption Start: 06-16-2024 End: 06-16-2024 Telephone encounter Jennifer Arias MD Work Phone: [facility] Rheumatology and Arthritis Comment on above: Patient Question Start: 06-15-2024 End: 06-15-2024 ambulatory Josh Bennett DO Work Phone: Hematology/Oncology Comment on above: Iron deficiency anem ia, unspecified iron deficiency anemia type (Primary Dx) Start: 06-15-2024 End: 06-15-2024 Patient encounter procedure Josh Bennett DO Work Phone: Hematology/Oncology Start: 06-14-2024 End: 06-15-2024 Refill Jennifer Arias MD Work Phone: [facility] Rheumatology and Arthritis Comment on above: Refill Request Start: 06-09-2024 End: 06-09-2024 ambulatory Julio Arriaga NP Facility:[facility] Start: 06-06-2024 End: 06-06-2024 Emergency department patient visit Gaudencio Ambriz Facility:[facility] Start: 06-03-2024 End: 06-03-2024 Telephone encounter Julio Arriaga APRN.CNP Work Phone: [facility] Comment on above: Appointment Start: 05-29-2024 End: 05-29-2024 Telephone encounter Sarah Pearson PA-C Work Phone: [facility] Arthritis & Rheumatology Comment on above: Results Start: 05-21-2024 End: 05-21-2024 ambulatory Chair 1 [facility] Hemat[facility]/Oncology Comment on above: Rheumatoid arthritis involving multiple sites with positive rheumatoid factor (HCC) (Primary Dx) Start: 05-15-2024 End: 05-15-2024 Telemedicine consultation with patient Sarah Jamison Michel SAMUEL Work Phone: [facility]thritis & Rheumatology Start: 05-15-2024 End: 05-15-2024 ambulatory Sarah Jamison Michel SAMUEL Work Phone: [facility] Arthritis & Rheumatology Comment on above: Rheumatoid arthritis involving multiple sites with positive rheumatoid factor (HCC) (Primary Dx); Osteoporosis, unspecified osteoporosis type, unspecified pathological fracture presence; High risk medication use; Vitamin D deficiency; Rash and nonspecific skin eruption Start: 04-27-2024 End: 04-27-2024 ambulatory Andrez Pitts Facility:[facility] Start: 04-01-2024 End: 04-01-2024 Patient encounter procedure [facility] Comment on above: Rheumatoid arthritis involving multiple sites with positive rheumatoid factor (HCC) (Primary Dx) Start: 04-01-2024 End: 04-01-2024 ambulatory Chair 1 [facility] Start: 03-25-2024 End: 03-25-2024 ambulatory Andrez Pitts Facility:[facility] Start: 02-26-2024 End: 02-26-2024 Patient encounter procedure [facility] Comment on above: Rheumatoid arthritis involving multiple sites with positive rheumatoid factor (HCC) (Primary Dx) Start: 02-26-2024 End: 02-26-2024 ambulatory Chair 2 [facility] Start: 01-29-2024 End: 01-29-2024 Patient encounter procedure [facility] Comment on above: Rheumatoid arthritis involving multiple sites with positive rheumatoid factor (HCC) (Primary Dx) Start: 01-29-2024 End: 01-29-2024 ambulatory Chair 3 [facility] Start: 12-31-2023 Telephone encounter Jennifer miranda MD Work Phone: [facility] Rheumatology and Arthritis Comment on above: Patient Question Start: 12-31-2023 End: 12-31-2023 ambulatory Chair 1 [facility] Start: 12-31-2023 End: 12-31-2023 Patient encounter procedure [facility] Comment on above: Rheumatoid arthritis involving multiple sites with positive rheumatoid factor (HCC) (Primary Dx) Start: 12-30-2023 End: 03-05-2024 ambulatory CLARICE FOLDER TIER [facility] Start: 12-02-2023 ambulatory JULIO FOLDER TIER [facility] Start: 11-21-2023 End: 11-21-2023 Patient encounter procedure Jennifer Arias MD Work Phone: [facility] Rheumatology and Arthritis Comment on above: Rheumatoid arthritis involving multiple sites with positive rheumatoid factor (HCC) (Primary Dx); High risk medication use; Localized osteoporosis without current pathological fracture; Vitamin D deficiency Start: 11-20-2023 End: 11-20-2023 ambulatory Chair 1 [facility] Start: 11-20-2023 End: 11-20-2023 Patient encounter procedure [facility] Comment on above: Rheumatoid arthritis involving multiple sites with positive rheumatoid factor (HCC) (Primary Dx); Rheumatoid arthritis involving multiple sites, unspecified whether rheumatoid factor present (HCC); Osteoporosis, unspecified; Vitamin D deficiency Start: 11-12-2023 Orders Only Sarah huynh PA-C Work Phone: [facility] Rheumatology [facility] Arthritis Start: 11-11-2023 Orders Only Tracy Velez PA-C Work Phone: [facility] Start: 11-06-2023 ambulatory JULIO MOLINA [facility] Start: 10-19-2023 End: 10-19-2023 Emergency department patient visit CARBON PRINTER-Marga Arriaga NP Work Phone: [facility]-Emergency Department Work Phone: Start: 10-18-2023 Refill Sarah huynh PA-C Work Phone: [facility] Rheumatology and Arthritis Comment on above: Refill Request Start: 10-16-2023 End: 10-16-2023 ambulatory FREDI NEWMAN [facility] Start: 10-15-2023 Orders Only Jennifer mcduffie MD Work Phone: [facility] Rheumatology and Arthritis Start: 09-26-2023 End: 09-26-2023 ambulatory Chair 5 [facility] Comment on above: Rheumatoid arthritis involving multiple sites with positive rheumatoid factor (HCC) (Primary Dx); Rheumatoid arthritis involving multiple sites, unspecified whether rheumatoid factor present (HCC) Start: 09-26-2023 End: 09-26-2023 ambulatory JULIO MOLINA [facility] Start: 09-19-2023 End: 09-19-2023 Orders Only Jennifer Arias MD Work Phone: [facility] Rheumatology and Arthritis Start: 09-18-2023 End: 09-18-2023 Patient encounter procedure CARBON PRINTER-Marga Arriaga CARBON PRINTER Work Phone: [facility] Work Phone: Start: 09-16-2023 Telephone encounter Jennifer miranda MD Work Phone: [facility] Arthritis & Rheumatology Comment on above: Medication Preauthor ization ([place] Pending [id number] [facility]/Portal) Start: 09-06-2023 End: 09-06-2023 ambulatory CARBON PRINTERRowan Arriaga NP Work Phone: [facility] Work Phone: Start: 09-06-2023 End: 09-06-2023 Patient encounter procedure CARBON PRINTER-Marga Arriaga CARBON PRINTER Work Phone: [facility]-Laboratory, Specimen Work Phone: Start: 08-30-2023 End: 08-30-2023 ambulatory Chair 4 [facility] Hematology/Oncology Comment on above: Rheumatoid arthritis involving multiple sites with positive rheumatoid factor (HCC) (Primary Dx); Rheumatoid arthritis involving multiple sites, unspecified whether rheumatoid factor present (HCC) Start: 07-25-2023 End: 07-25-2023 ambulatory CARBON PRINTER-C Julio Arriaga CARBON PRINTER Work Phone: [facility] Work Phone: Start: 07-25-2023 End: 07-25-2023 Patient encounter procedure CARBON PRINTER-Marga Arriaga CARBON PRINTER Work Phone: [facility]-MRI - H Work Phone: Start: 07-12-2023 End: 07-12-2023 Patient encounter procedure CARBON PRINTER-Marga Arriaga CARBON PRINTER Work Phone: [facility] Work Phone: Start: 07-05-2023 End: 07-05-2023 ambulatory CARBON PRINTER-Marga Arriaga CARBON PRINTER Work Phone: [facility] Work Phone: Start: 07-05-2023 End: 07-05-2023 Patient encounter procedure CARBON PRINTER-Marga Arriaga CARBON PRINTER Work Phone: [facility] Work Phone: Start: 07-03-2023 End: 07-03-2023 ambulatory Chair 7 [facility] Work Phone: Hematology/Oncology Comment on above: Rheumatoid arthritis involving multiple sites with positive rheumatoid factor (HCC) (Primary Dx); Rheumatoid arthritis involving multiple sites, unspecified whether rheumatoid factor present (HCC) Start: 06-19-2023 Orders Only Jennifer mcduffie MD Work Phone: [facility] Rheumatology and Arthritis Start: 05-27-2023 End: 05-27-2023 ambulatory Chair 9 [facility] Work Phone: Hematology/Oncology Comment on above: Rheumatoid arthritis involving multiple sites with positive rheumatoid factor (HCC) (Primary Dx); Rheumatoid arthritis involving multiple sites, unspecified whether rheumatoid factor present (HCC) Start: 05-21-2023 End: 05-21-2023 Patient encounter procedure Sarah Pearson PA-C Work Phone: [facility] Rheumatology and Arthritis Comment on above: Rheumatoid arthritis involving multiple sites with positive rheumatoid factor (HCC) (Primary Dx); High risk medication use; Localized osteoporosis without current pathological fracture; Vitamin D deficiency Start: 04-29-2023 Telephone encounter Sarah cotto PA-C Work Phone: [facility]ritis [facility] Rheumatology Comment on above: Results Start: 04-25-2023 End: 04-25-2023 ambulatory Bed 1 [facility] Work Phone: Hematology/Oncology Comment on above: Osteoporosis, unspec ified (Primary Dx) Start: 04-25-2023 End: 04-25-2023 ambulatory Bed 1 [facility] Work Phone: Hematology/Oncology Comment on above: Rheumatoid arthritis involving multiple sites, unspecified whether rheumatoid factor present (HCC) (Primary Dx); Rheumatoid arthritis involving multiple sites with positive rheumatoid factor (HCC); Vitamin D deficiency; Localized osteoporosis without current pathological fracture Start: 04-17-2023 End: 04-17-2023 Patient encounter procedure CARBON PRINTER-C Julio Arriaga NP Work Phone: [facility] Work Phone: Start: 04-13-2023 Refill Jennifer mcduffie MD Work Phone: [facility] Rheumatology and Arthritis Comment on above: Refill Request Start: 04-11-2023 Telephone encounter Jennifer miranda MD Work Phone: [facility]ology [facility] Start: 02-01-2023 Orders Only Jennifer mcduffie MD Work Phone: [facility] Rhe[facility]ology [facility] Start: 01-24-2023 Non-patient / Non-visit MD GIANNI NAM [facility] Start: 01-23-2023 Non-patient / Non-visit MD GIANNI NAM [facility] Start: 01-23-2023 End: 01-24-2023 Evaluation and management of inpatient MD GIANNI CERVANTES [facility]-Medical Surgical 3 Work Phone: Start: 01-09-2023 End: 01-09-[address] Selene Pierre Work Phone: [facility] Start: 01-07-2023 End: 01-07-[address] Selene Pierre Work Phone: [facility] [facility] Work Phone: Start: 01-07-2023 End: 01-07-[address] Selene Pierre Work Phone: [facility] Start: 01-02-2023 Telephone encounter Jennifer miranda MD Work Phone: [facility] Arthritis & Rheumatology Comment on above: PRECERT NOT REQUIRED (Zoledronic Acid 5mg PRECERT NOT REQUIRED [id number] 01.02.23 - 01.03.24 for 1 visit [facility] Dual/Portal) Start: 12-26-2022 Telephone encounter Jennifer miranda MD Work Phone: [facility] [place] General Rheumatology and Arthritis Comment on above: Patient Question Start: 12-24-2022 Refill Sarah huynh PA-C Work Phone: [facility] Rheumatology and Arthritis Comment on above: Refill Request Start: 12-22-2022 Refill Jennifer mcduffie MD Work Phone: [facility] General Rheumatology and Arthritis Comment on above: Refill Request Start: 12-17-2022 End: 12-17-[address] Selene Pierre Work Phone: [facility] Start: 12-06-2022 End: 12-06-[address] Selene Pierre Work Phone: [facility] Start: 12-05-2022 End: 12-05-[address] Selene Pierre Work Phone: [facility] Work Phone: Start: 12-05-2022 End: 12-05-[address] Selene Pierre Work Phone: [facility]-Laboratory, Specimen Start: 11-29-2022 End: 11-29-[address] Seleen Pierre Work Phone: [facility] Work Phone: Start: 11-29-2022 End: 11-29-[address] Selene Pierre Work Phone: [facility] Start: 11-26-2022 Orders Only Jennifer mcduffie MD Work Phone: [facility] General Rheumatology and Arthritis Start: 11-21-2022 End: 11-21-[address] Selene Pierre Work Phone: [facility] Gastroenterology Start: 11-19-2022 Refill Carol Mathews APRN, .CNP Work Phone: [facility] [place] Comment on above: Refill Request Start: 11-14-2022 End: 11-14-[address] Selene Pierre Work Phone: [facility] Start: 11-06-2022 Non-patient / Non-visit Dr. Sunil Pierre Work Phone: [facility] Start: 11-06-2022 End: 11-06-2022 Admission to same day surgery center Dr. Selene Pierre Work Phone: [facility]-Endoscopy Start: 11-06-2022 End: 11-06-[address] Selene Pirere Work Phone: [facility] Work Phone: Start: 11-02-2022 End: 11-02-2022 ambulatory Chair 1 [facility] Hematology/Oncology Comment on above: Rheumatoid arthritis involving multiple sites, unspecified whether rheumatoid factor present (HCC) (Primary Dx); Vitamin D deficiency; Other osteoporosis with current pathological fracture with malunion, subsequent encounter; Rheumatoid arthritis involving multiple sites with positive rheumatoid factor (HCC) Start: 10-31-2022 Refill Selene Roberson Work Phone: [facility] Comment on above: Refill Request Start: 10-24-2022 Telephone encounter Jennifer miranda MD Work Phone: [facility] Arthritis & Rheumatology Comment on above: APPROVED (Ori JONES PROVED [id number] 09.06.22 - 09.06.23 [facility] Medicare Portal) Start: 10-18-2022 End: 10-18-2022 Patient encounter procedure Jennifer Arias MD Work Phone: [facility] General Rheumatology and Arthritis Comment on above: Pain in joint, multi ple sites (Primary Dx); Osteoporosis, unspecified osteoporosis type, unspecified pathological fracture presence Start: 10-17-2022 Non-patient / Non-visit Dr. Sunil Pierre Work Phone: [facility] Start: 10-17-2022 End: 10-17-[address] Selene Pierre Work Phone: [facility] Work Phone: Start: 10-17-2022 End: 10-17-[address] Selene Pierre Work Phone: [facility]-Pulmonary Services/Neurology Start: 10-15-2022 End: 10-15-[address] Selene Pierre Work Phone: [facility] Work Phone: Start: 10-15-2022 End: 10-15-[address] Selene Pierre Work Phone: [facility], [facility] Start: 09-20-2022 Refill Sarah huynh PA-C Work Phone: [facility] Rheumatology and Arthritis Comment on above: Refill Request Start: 09-19-2022 End: 09-19-[address] Selene Pierre Work Phone: [facility] Work Phone: Start: 09-19-2022 End: 09-19-[address] Selene Pierre Work Phone: [facility] Gastroenterology Start: 09-12-2022 End: 09-12-[address] Selene Pierre Work Phone: [facility] Start: 09-06-2022 End: 09-06-[address] Selene Pierre Work Phone: [facility] Work Phone: Start: 09-06-2022 End: 09-06-[address] Selene Pierre Work Phone: [facility]-Pulmonary Services/Neurology Start: 09-05-2022 Telephone encounter Selene brooke MD Work Phone: [facility] [place] Comment on above: Medical Attestation forms Start: 09-03-2022 Orders Only Jennifer mcduffie MD Work Phone: [facility] General Rheumatology and Arthritis Start: 08-15-2022 End: 08-15-[address] Selene Pierre Work Phone: [facility] Start: 08-14-2022 End: 08-14-2022 ambulatory Chair 1 [facility] Hematology/Oncology Comment on above: Other osteoporosis w ith current pathological fracture with malunion, subsequent encounter (Primary Dx); Rheumatoid arthritis involving multiple sites with positive rheumatoid factor (HCC); Rheumatoid arthritis involving multiple sites, unspecified whether rheumatoid factor present (HCC) Refill Request Start: 08-09-2022 Orders Only Jennifer mcduffie MD Work Phone: [facility] Arthritis & Rheumatology Start: 08-08-2022 Orders Only Jennifer mcduffie MD Work Phone: [facility] Arthritis & Rheumatology Start: 08-02-2022 End: 08-02-2022 Patient encounter procedure Leilani Colmenares APRN.FOLDER TIER Work Phone: [facility] Comment on above: [...] Orders Only Jennifer mcduffie MD Work Phone: [facility] Rheumatology and Arthritis Start: 07-13-2022 End: 07-13-[address] Selene Pierre Work Phone: [facility] Start: 07-10-2022 End: 07-10-2022 Subsequent hospital visit by physician Bone Density [facility] Work Phone: Radiology Comment on above: Localized osteoporos is without current pathological fracture [M81.6] Start: 06-26-2022 End: 06-26-2022 Subsequent hospital visit by physician Xr [place] 2 [facility] Comment on above: Pain in left hip [M2 5.552] Start: 06-26-2022 End: 06-26-2022 Patient encounter procedure Sarah Pearson PA-C Work Phone: [facility] Rheumatology and Arthritis Comment on above: Localized osteoporos is without current pathological fracture (Primary Dx); Pain in left hip; Fall, initial encounter; Rash and nonspecific skin eruption; Rheumatoid arthritis involving multiple sites with positive rheumatoid factor (HCC); High risk medication use; Vitamin D deficiency Start: 06-15-2022 Refill Sarah huynh PA-C Work Phone: [facility] Rheumatology and Arthritis Comment on above: Refill Request Start: 06-11-2022 Refill Jacek Mitchell MD Work Phone: [facility] Comment on above: Refill Request Start: 05-30-2022 Orders Only Jennifer mcduffie MD Work Phone: [facility] Rheumatology and Arthritis Start: 05-29-2022 Orders Only Jennifer mcduffie MD Work Phone: [facility] Rheumatology and Arthritis Start: 05-17-2022 Telephone encounter Geronimo hedrick RAILROAD EMERGENCY SERVICES MANAGER.FOLDER TIER Work Phone: [facility] Comment on above: Results Start: 05-17-2022 End: 05-17-2022 ambulatory Carol Mathews RAILROAD EMERGENCY SERVICES MANAGER.FOLDER TIER Work Phone: [facility] [place] Comment on above: COVID (Primary Dx) Start: 05-17-2022 End: 05-17-2022 Telemedicine consultation with patient Carol Reid NUNEZFOLDER TIER Work Phone: [facility] Start: 05-16-2022 End: 05-16-2022 Patient encounter procedure Sarah De Luna RAILROAD EMERGENCY SERVICES MANAGER.FOLDER TIER Work Phone: [facility] Comment on [...] Orders Only Jennifer mcduffie MD Work Phone: [facility] General Rheumatology and Arthritis Start: 04-18-2022 Refill Sarah huynh PA-C Work Phone: [facility] Rheumatology and Arthritis Comment on above: Refill Request Start: 04-13-2022 Refill Sarah huynh PA-C Work Phone: [facility] Rheumatology and Arthritis Comment on above: Refill Request Start: 04-05-2022 End: 04-05-2022 ambulatory Bed 1 [facility] Work Phone: Hematology/Oncology Comment on above: Other osteoporosis w ith current pathological fracture with malunion, subsequent encounter (Primary Dx); Rheumatoid arthritis involving multiple sites with positive rheumatoid factor ([facility]); Rheumatoid arthritis involving multiple sites, unspecified whether rheumatoid factor present ([facility]) Start: 03-29-2022 End: 03-29-2022 Patient encounter procedure BELLA GILLESPIE MD [facility] Start: 03-27-2022 Telephone encounter Leilani harris RAILROAD EMERGENCY SERVICES MANAGER.FOLDER TIER Work Phone: [facility] Comment on above: Future Appointment Start: 03-22-2022 Telephone encounter Leilani harris APRN.FOLDER TIER Work Phone: [facility] Comment on above: Appointment Start: 03-19-2022 End: 03-19-2022 Patient encounter procedure BELLA GILLESPIE MD [facility] Start: 03-12-2022 Refill Jennifer mcduffie MD Work Phone: [facility] Rheumatology and Arthritis Comment on above: Refill [...] Telephone encounter Jacek Mitchell MD Work Phone: [facility] Comment on above: Injections ([place]) Future Appointment ( [place]) Lumbar spondylosis ( Primary Dx) Start: 02-01-2022 End: 02-01-2022 Patient encounter procedure Leilani Colmenares RAILROAD EMERGENCY SERVICES MANAGER.FOLDER TIER Work Phone: [facility] Comment on above: Lumbar spondylosis ( Primary Dx); Chronic bilateral low back pain without sciatica; Myofascial pain; Fibromyalgia Start: 01-30-2022 End: 01-30-2022 ambulatory Sarah Pearson PA-C Work Phone: [facility] Rheumatology and Arthritis Comment on above: Vitamin D deficiency ; Rheumatoid arthritis involving multiple sites with positive rheumatoid factor (HCC) Start: 01-30-2022 End: 01-30-2022 Telemedicine consultation with patient Sarah Pearson PA-C Work Phone: [facility] Start: 01-24-2022 ambulatory Selene Roberson Work Phone: [facility] [place] Start: 01-23-2022 Orders Only Jennifer mcduffie MD Work Phone: [facility] General Rheumatology and Arthritis Start: 01-18-2022 Refill Sarah huynh PA-C Work Phone: [facility] Rheumatology and Arthritis Comment on above: Refill Request Start: 01-18-2022 Refill Carol Mathews RAILROAD EMERGENCY SERVICES MANAGER .FOLDER TIER Work Phone: [facility] [place] Comment on above: Refill Request Start: 01-08-2022 Refill Carol Mathews RAILROAD EMERGENCY SERVICES MANAGER .FOLDER TIER Work Phone: [facility] [place] Comment on above: Refill Request Start: 01-04-2022 Telephone encounter Jennifer miranda MD Work Phone: [facility] Arthritis & Rheumatology Comment on above: APPROVED (Reclast AP PROVED [id number] 01.25.2022 - 01.25.2023 per [facility] medicare Portal) Start: 12-28-2021 End: 12-28-2021 ambulatory Chair 8 [facility] Work Phone: Hematology/Oncology Comment on above: Other osteoporosis w ith current pathological fracture with malunion, subsequent encounter (Primary Dx); Rheumatoid arthritis involving multiple sites with positive rheumatoid factor (HCC); Rheumatoid arthritis involving multiple sites, unspecified whether rheumatoid factor present (HCC) Start: 12-22-2021 Orders Only Sarah huynh PA-C Work Phone: [facility] Arthritis & Rheumatology Start: 11-30-2021 End: 11-30-2021 ambulatory Chair 1 [facility] Hematology/Oncology Comment on above: Other osteoporosis w ith current pathological fracture with malunion, subsequent encounter (Primary Dx); Rheumatoid arthritis involving multiple sites with positive rheumatoid factor (HCC); Rheumatoid arthritis involving multiple sites, unspecified whether rheumatoid factor present (HCC) Start: 11-27-2021 Orders Only Jennifer mcduffie MD Work Phone: [facility] General Rheumatology and Arthritis Start: 11-19-2021 Refill Carol Mathews APRN, .CNP Work Phone: [facility] [place] Comment on above: Refill Request Start: 11-02-2021 End: 11-02-2021 ambulatory Chair 5 [facility] [place] Work Phone: Hematology/Oncology Comment on above: Rheumatoid arthritis involving multiple sites with positive rheumatoid factor (HCC) (Primary Dx); Other osteoporosis with current pathological fracture with malunion, subsequent encounter; Rheumatoid arthritis involving multiple sites, unspecified whether rheumatoid factor present (HCC) Start: 11-01-2021 Telephone encounter Jennifer miranda MD Work Phone: [facility] Rheumatology and Arthritis Comment on above: Orders Start: 10-02-2021 End: 12-12-2021 Physical therapy management BELLA GILLESPIE MD [facility] Start: 08-28-2021 End: 09-01-2021 Evaluation and management of inpatient SONG ALMEIDA MD [facility] Start: 05-01-2021 End: 05-01-2021 Subsequent hospital visit by physician Xr [facility] [place] Work Phone: Radiology Comment on above: 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, U09.9] Start: 04-19-2021 ambulatory Selene Roberson Work Phone: Internal [facility] [place] Comment on above: Vomiting Start: 02-08-2021 End: 02-08-2021 Subsequent hospital visit by physician Xr [facility] [place] Radiology Comment on above: Right knee [...] CT of pelvis without contrast Julio Arriaga [employer]C Work Phone: Start: 11-30-2024 Blood count complete auto&auto difrntl wbc Josh A Masci DO Work Phone: Start: 11-16-2024 Blood count complete auto&auto difrntl wbc Josh A Masci DO Work Phone: Start: 11-09-2024 Blood count complete auto&auto difrntl wbc Josh A Masci DO Work Phone: Start: 10-30-2024 Plain x-ray of pelvi s and lower extremity Julio Arriaga [employer] Work Phone: Start: 10-30-2024 CT of head without contrast Julio Arriaga [employer] Work Phone: Start: 10-24-2024 Urnls dip stick/tabl et reagent auto microscopy Julio Arriaga [employer] Work Phone: Start: 10-24-2024 Estimated creatinine clearance Julio Arriaga [employer] Work Phone: Start: 10-24-2024 Computed tomography of abdomen and pelvis with intravenous contrast Julio Arriaga [employer] Work Phone: Start: 10-24-2024 CT angiography of ch est with contrast Julio Arriaga [employer] Work Phone: Start: 10-24-2024 SARS-CoV-2, Influenz a & RSV (PCR) Julio Arriaga [employer] Work Phone: Start: 10-12-2024 Blood count complete auto&auto difrntl wbc Josh Bennett DO Work Phone: Start: 10-05-2024 Blood count complete auto&auto difrntl wbc Josh Bennett DO Work Phone: Start: 09-24-2024 CT of pelvis with contrast Julio Arriaga [employer] Work Phone: Start: 09-24-2024 Estimated creatinine clearance Julio Arriaga [employer] Work Phone: Start: 09-24-2024 Urnls dip stick/tabl et rgnt auto w/o microscopy Kimmy Dixon APRN.FOLDER TIER Work Phone: Start: 09-24-2024 Blood culture Julio Arriaga [employer] Work Phone: Start: 09-23-2024 Mri pelvis w/o & w/c ontrast material Josh Bennett DO Work Phone: Start: 09-23-2024 Ct thorax w/contrast material Josh Bennett DO Work Phone: Start: 09-03-2024 Estimated creatinine clearance Julio Arriaga [employer] Work Phone: Start: 09-03-2024 Measurement of renal function Julio Arriaga [employer]C Work Phone: Comment on above: GFR Calc Start: 09-02-2024 SARS-CoV-2, Influenz a & RSV (PCR) Julio Arriaga [employer] Work Phone: Start: 09-02-2024 Urnls dip stick/tabl et reagent auto microscopy Julio Arriaga [employer] Work Phone: Start: 09-02-2024 Computed tomography of abdomen and pelvis with intravenous contrast Julio Arriaga [employer] Work Phone: Start: 09-02-2024 X-ray of chest, PA a nd lateral views Julio Arriaga [employer] Work Phone: Start: 05-21-2024 Blood count complete auto&auto difrntl wbc Tracy [place] PA-C Work Phone: Start: 01-29-2024 Blood count complete auto&auto difrntl wbc Tracy [place] PA-C Work Phone: Start: 11-20-2023 Blood count complete auto&auto difrntl wbc Tracy [place] PA-C Work Phone: Start: 11-20-2023 C-reactive protein Daniele Arias MD Work Phone: Start: 10-19-2023 X-ray of unilateral ribs, two views without x-ray of chest [employer] Julio Arriaga [employer]ON PRINTER Work Phone: Start: 10-19-2023 CT of head without contrast [employer] Julio Arriaga [employer] PRINTER Work Phone: Start: 09-18-2023 Radiologic examinati on of knee [employer] Julio Arriaga [employer] PRINTER Work Phone: Start: 09-06-2023 Ova OR parasites identification [employer] Julio Arriaga [employer] PRINTER Work Phone: Start: 07-25-2023 MRI of small intestine [employer] Julio Arriaga [employer] PRINTER Work Phone: Start: 04-25-2023 CREATININE BLD Jennifer [...] DTaP,Tdap,Td Vaccine (3 - Td or Tdap) [facility] Start: 02-02-2028 Diabetes Screening Diabetes Screening [facility] Start: 01-15-2028 Diabetes Screening Diabetes Screening [facility] Start: 12-01-2027 Diabetes Screening Diabetes Screening [facility] Start: 11-24-2027 Diabetes Screening Diabetes Screening [facility] Start: 11-17-2027 Diabetes Screening Diabetes Screening [facility] Start: 11-10-2027 Diabetes Screening Diabetes Screening [facility] Start: 10-31-2027 Diabetes Screening Diabetes Screening [facility] Start: 10-20-2027 Diabetes Screening Diabetes Screening [facility] Start: 10-06-2027 Diabetes Screening Diabetes Screening [facility] Start: 09-23-2027 Colonoscopy COLONOSCOPY [facility] Start: 09-23-2027 COLORECTAL CANCER SCREENING COLORECTAL CANCER SCREENING [facility] Start: 09-23-2027 Screening for malignant neoplasm of colon [facility] Start: 09-16-2027 Diabetes Screening Diabetes Screening [facility] Start: 05-21-2027 Diabetes Screening Diabetes Screening [facility] Start: 01-28-2027 Diabetes Screening Diabetes Screening [facility] Start: 11-19-2026 Diabetes Screening Diabetes Screening [facility] Start: 08-20-2026 Screening for osteoporosis Bone Density Screening [facility] Start: 07-31-2026 Diabetes Screening Diabetes Screening [facility] Start: 04-25-2026 Diabetes Screening Diabetes Screening [facility] Start: 11-30-2025 BP Controlled (<130/80) BP Controlled (<130/80) [facility] Start: 10-30-2025 BP Controlled (<130/80) BP Controlled (<130/80) [facility] Start: 10-18-2025 DIABETES SCREEN DIABETES SCREEN [facility] Start: 10-18-2025 Diabetes Screening Diabetes Screening [facility] Start: 10-13-2025 BP Controlled (<130/80) BP Controlled (<130/80) [facility] Start: 10-04-2025 End: 10-04-2025 Patient encounter procedure 10/04/2025 8:00 AM EDT Office Visit OB/Gynecology [address] [place] [address] Juan José Cheema MD [address] [place] [address] Annual OB/Gynecology Comment on above: Annual Start: 09-30-2025 BP Controlled (<130/80) BP Controlled (<130/80) [facility] Start: 09-30-2025 Screening for malignant neoplasm of breast Mammogram Screening [facility] Start: 09-30-2025 Screening for malignant neoplasm of cervix Cervical Cancer Screening [facility] Start: 09-27-2025 End: 09-27-2025 ambulatory 09/27/2025 10:50 AM EST Visit (SP) Office Hematology/Oncology [address] [place] [address] Josh Bennett, [address] [place] [address] 6MO OV/LABS AND CT 09/20* Hematology/Oncology Comment on above: 6MO OV/LABS AND CT 09/20* Start: 09-23-2025 Screening for malignant neoplasm of lung Lung Cancer Screening [facility] Start: 09-20-2025 End: 09-20-2025 Patient encounter procedure Cat Scan Comment on above: Malignant neoplasm of anus (HCC) [C21.0] Start: 09-20-2025 End: 09-20-2025 ambulatory 09/20/2025 10:00 AM [facility] Infusion Center Hematology/Oncology [address] [place] [address] Wstr, Lab/Port [facility] [address] [place] [address] CBC/CMP(PORT)LEAVE OPEN FOR ACCESS FOR IMAGING Hematology/Oncology Comment on above: CBC/CMP(PORT)LEAVE OPEN FOR ACCESS FOR I MAGING Start: 09-02-2025 BP Controlled (<130/80) BP Controlled (<130/80) [facility] Start: 07-17-2025 DIABETES SCREEN DIABETES SCREEN [facility] Start: 06-15-2025 BP Controlled (<130/80) BP Controlled (<130/80) [facility] Start: 05-13-2025 End: 05-13-2025 ambulatory 05/13/2025 11:00 AM [facility] Infusion Center Hematology/Oncology [address] [place] [address] 2ND Hematology/Oncology Comment on above: 2ND Start: 05-03-2025 End: 05-03-2025 Patient encounter procedure 05/03/2025 10:30 AM [facility] Infusion Center [facility] Infusion Center [address] [place] [address] /// relcast [facility] Infusion Center Comment on above: /// relcast Start: 04-15-2025 End: 04-15-2025 ambulatory 04/15/2025 11:00 AM EDT Infusion Center Hematology/Oncology [address] [place] [address] 2ND Hematology/Oncology Comment on above: 2ND Start: 03-29-2025 Influenza vaccination [facility] Start: 03-19-2025 End: 03-19-2025 ambulatory 03/19/2025 11:20 AM EDT Visit (SP) Office Hematology/Oncology [address] [place] [address] Josh Bennett DO [address] [place] [address] OV BX AT [facility]* Hematology/Oncology Comment on above: BX AT [facility]* Start: 03-18-2025 End: 03-18-2025 ambulatory 03/18/2025 10:30 AM EDT Infusion Center Hematology/Oncology [address] [place] [address] 2ND Hematology/Oncology Comment on above: 2ND Start: 03-05-2025 DIABETES SCREEN DIABETES SCREEN [facility] Start: 03-02-2025 Sigmoidoscopy flx w/biopsy single/multiple SIGMOIDOSCOPY AND BIOPSY [facility] Start: 03-02-2025 Patient discharge [facility] Start: 02-27-2025 [facility] Start: 02-18-2025 End: 02-18-2025 ambulatory Hematology/Oncology Comment on above: 2ND pt requested date/ti me Start: 02-04-2025 End: 02-04-2025 ambulatory 02/04/2025 10:00 AM EDT Infusion Center Hematology/Oncology [address] [place] [address] 2ND Hematology/Oncology Comment on above: 2ND Start: 02-01-2025 End: 02-01-2025 Patient encounter procedure 02/01/2025 11:00 AM EDT Appointment Radiology [address] [place] [id number] Malignant neoplasm of anus (HCC) [C21.0] Radiology Comment on above: Malignant neoplasm of anus (HCC) [C21.0] Start: 02-01-2025 End: 02-01-2025 ambulatory 02/01/2025 10:45 AM EDT Infusion Center Hematology/Oncology [address] [place] [address] Wstr, Lab/[place] [facility] [address] [place] [address] CBC/CMP(PORT)/ACCESS FOR MRI TODAY* Hematology/Oncology Comment on above: CBC/CMP(PORT)/ACCESS FOR MRI TODAY* Start: 01-14-2025 End: 04-15-2025 25-hydroxyvitamin D3 [Mass/volume] in Serum or Plasma [facility] Comment on above: Expected: 01/14/2025, Expires: Start: 01-14-2025 End: 04-15-2025 C reactive protein [Mass/volume] in Serum or Plasma [facility] Comment on above: Expected: 01/14/2025, Expires: Start: 01-14-2025 End: 04-15-2025 Cobalamin (Vitamin B12) [Mass/volume] in Serum or Plasma [facility] Comment on above: Expected: 01/14/2025, Expires: Start: 01-14-2025 End: 04-15-2025 Hepatitis B virus core Ab [Presence] in Serum [facility] Comment on above: Expected: 01/14/2025, Expires: Start: 01-14-2025 End: 04-15-2025 Hepatitis B virus surface Ab [Presence] in Serum [facility] Comment on above: Expected: 01/14/2025, Expires: Start: 01-14-2025 End: 04-15-2025 Hepatitis B virus surface Ag [Presence] in Serum [facility] Comment on above: Expected: 01/14/2025, Expires: Start: 01-07-2025 End: 01-07-2025 ambulatory 01/07/2025 10:30 AM EDT Infusion Center Hematology/Oncology [address] [place] [address] 2ND Hematology/Oncology Comment on above: 2ND Start: 12-27-2024 [facility] Start: 12-11-2024 End: 12-11-2024 ambulatory 12/11/2024 10:30 AM EDT Infusion Center Hematology/Oncology [address] [place] [address] 2ND Hematology/Oncology Comment on above: 2ND Start: 12-10-2024 End: 12-10-2024 ambulatory 12/10/2024 11:00 AM EDT [facility] Hematology/Oncology [address] [place] [address] RECLAST/Oder Per JENNIFER Garcia* Hematology/Oncology Comment on above: RECLAST/Oder Per JENNIFER Garcia* Start: 12-07-2024 End: 12-07-2024 Follow-up encounter 12/07/2024 11:30 AM EDT [facility] Radiation Oncology [address] [place] [address] Sidney Joya MD [address] [place] [address] 4WK FOLLOW UP Radiation Oncology Comment on above: 4WK FOLLOW UP Start: 11-30-2024 End: 11-30-2024 Patient encounter procedure 11/30/2024 12:00 PM EDT [facility] [place] [facility] Rhe[facility]ology and Arthritis [address] [facility] [address] [place], [place] [id number] Jennifer Arias MD [address] [facility] [address] [place] [address] 2mth f/up [facility] [place] [facility] Rheumatology and Arthritis Comment on above: 2mth f/up Start: 11-30-2024 End: 11-30-2024 ambulatory Hematology/Oncology Comment on above: QWK CBC(PICC)DRESSING CHANGE* WK8 OV/(PICC)LAB EAR LY* QWK(SO)CBC(PICC)DRES SING CHANGE* 8WK OV(PICC)LAB ERROL Y* QWK(SO)CBC(PORT)OV T SHIRLEY* 8WK OV(PORT)LAB ERROL Y* Start: 11-27-2024 End: 11-27-2024 ambulatory 11/27/2024 10:00 AM EDT Infusion Center Hematology/Oncology [address] [place] [address] Wstr, Lab/[place] [facility] [address] [place] [address] PICC DRESSING CHANGE* Hematology/Oncology Comment on above: PICC DRESSING CHANGE* Start: 11-23-2024 End: 11-23-2024 ambulatory Hematology/Oncology Comment on above: QWK CBC(PICC)DRESSING CHANGE* QWK(SO)CBC(PICC)DRES SING CHANGE* QWK(SO)CBC(PORT)* Start: 11-20-2024 End: 11-20-2024 ambulatory 11/20/2024 10:00 AM EDT Infusion Center Hematology/Oncology [address] [place] [address] Wstr, Lab/[place] [facility] [address] [place] [address] PICC DRESSING CHANGE* Hematology/Oncology Comment on above: PICC DRESSING CHANGE* Start: 11-16-2024 End: 11-16-2024 ambulatory Hematology/Oncology Comment on above: QWK CBC(PICC)DRESSING CHANGE* QWK(SO)CBC(PICC)DRES SING CHANGE* QWK(SO)CBC(PORT)* Start: 11-16-2024 End: 11-16-2024 Patient encounter procedure 11/16/2024 9:30 AM EDT Appointment Radiation Oncology [address] [place] [address] CON CHEMO Radiation Oncology Comment on above: CON CHEMO Start: 11-13-2024 End: 11-13-2024 ambulatory 11/13/2024 10:00 AM EDT Infusion Center Hematology/Oncology [address] [place] [address] Wstr, Lab/[place] [facility] [address] [place] [address] PICC DRESSING CHANGE* Hematology/Oncology Comment on above: PICC DRESSING CHANGE* Start: 11-13-2024 End: 11-13-2024 Patient encounter procedure 11/13/2024 9:30 AM EDT Appointment Radiation Oncology [address] [place] [address] CON CHEMO Radiation Oncology Comment on above: CON CHEMO Start: 11-12-2024 End: 11-12-2024 Patient encounter procedure 11/12/2024 9:30 AM EDT Appointment Radiation Oncology [address] [place] [address] CON CHEMO Radiation Oncology Comment on above: CON CHEMO Start: 11-11-2024 End: 11-11-2024 Patient encounter procedure 11/11/2024 9:30 AM EDT Appointment Radiation Oncology [address] [place] [address] CON CHEMO Radiation Oncology Comment on above: [...] Radiation Oncology [address] [place] [address] CON CHEMO Radiation Oncology Comment on above: CON CHEMO Start: 11-06-2024 End: 11-06-2024 ambulatory 11/06/2024 4:00 PM EDT Infusion Center Hematology/Oncology [address] [place] [address] Wstr, Lab/[place] [facility] [address] [place] [address] D5 DC CADD* Hematology/Oncology Comment on above: D5 DC CADD* Start: 11-06-2024 End: 11-06-2024 Patient encounter procedure 11/06/2024 9:30 AM EDT Appointment Radiation Oncology [address] [place] [address] CON CHEMO Radiation Oncology Comment on above: CON CHEMO Start: 11-05-2024 End: 11-05-2024 Patient encounter procedure OB/Gynecology Comment on above: Comment: General exam/PAP smear CON CHEMO Start: 11-04-2024 End: 11-04-2024 Patient encounter procedure 11/04/2024 9:30 AM EDT Appointment Radiation Oncology [address] [place] [address] CON CHEMO Radiation Oncology Comment on above: CON CHEMO Start: 11-03-2024 End: 11-03-2024 Patient encounter procedure Radiation Oncology Comment on above: CON CHEMO Location: W-ON TREAT MENT VISIT Start: 11-02-2024 DIABETES SCREEN DIABETES SCREEN [facility] Start: 11-02-2024 End: 11-02-2024 ambulatory Hematology/Oncology Comment on above: CBC/CMP(PICC)D29 MITOMYCIN/5FU/LAB EARLY /XRT/AUTH EXP?* (SO)CBC/CMP(S)(PICC) /D29 MITOMYCIN/5FU/XRT/AUTH EXP?* (SO)CBC/CMP(S)(PICC) /D29 5FU/XRT* (SO)CBC/CMP(S)(PORT) /D29 5FU/XRT* Start: 11-02-2024 End: 11-02-2024 Patient encounter procedure 11/02/2024 9:30 AM EDT Appointment Radiation Oncology [address] [place] [address] CON CHEMO Radiation Oncology Comment on above: CON CHEMO Start: 10-30-2024 End: 10-30-2024 Admission to same day surgery center 10/30/2024 1:00 PM EDT - 10/30/2024 2:30 PM EDT Surgery [facility] Radiology Procedure [address] [place] [address] Ortega Cardenas MD [address] [place] [address] INSERTION PORT VENOUS ACCESS ADULT [facility] Radiology Procedure Comment on above: INSERTION PORT VENOUS ACCESS ADULT Start: 10-30-2024 End: 10-30-2024 Insj tunneled ctr vad w/subq port age 4 yr/> AV IR Start: 10-30-2024 Subsequent hospital visit by physician 10/30/2024 1:00 PM EDT Hospital Encounter [facility] Radiology Procedure [address] [place] [address] Ortega Cardenas MD [address] [place] [address] Anal cancer (HCC) [C21.0] [facility] Radiology Procedure Comment on above: Anal cancer (HCC) [C21.0] Start: 10-30-2024 End: 10-30-2024 Patient encounter procedure 10/30/2024 9:30 AM EDT Appointment Radiation Oncology [address] [place] [address] CON CHEMO Radiation Oncology Comment on above: CON CHEMO Start: 10-30-2024 End: 10-30-2024 ambulatory Hematology/Oncology Comment on above: PICC DRESSING CHANGE* CBC/CMP(PICC)* LAB EARLY(PICC)/OV-P er nursing staff phone note 10/21* (SO)CBC/CMP(S)(PICC) * Start: 10-30-2024 [facility] Start: 10-29-2024 End: 10-29-2024 Patient encounter procedure 10/29/2024 9:30 AM EDT Appointment Radiation Oncology [address] [place] [address] CON CHEMO Radiation Oncology Comment on above: CON CHEMO Start: 10-28-2024 End: 10-28-2024 Patient encounter procedure 10/28/2024 9:30 AM EDT Appointment Radiation Oncology [address] [place] [address] CON CHEMO Radiation Oncology Comment on above: CON CHEMO Start: 10-27-2024 End: 10-27-2024 Patient encounter procedure Radiation Oncology Comment on above: CON CHEMO Location: W-ON TREAT MENT VISIT Start: 10-26-2024 End: 10-26-2024 ambulatory Hematology/Oncology Comment on above: QWK CBC(PICC)DRESSING CHANGE* WK3 OV/(PICC)LAB EAR LY* QWK(SO)CBC(PICC)DRES SING CHANGE* 3WK OV(PICC)LAB ERROL Y* Start: 10-26-2024 End: 10-26-2024 ambulatory 10/26/2024 9:45 AM EDT Results Only [place] [facility] Laboratory [address] [place] [address] CBC - No PICC-it is being put in again 10/29/24 [facility] Comment on above: CBC - No PICC-it is being put in again Start: 10-26-2024 End: 10-26-2024 Patient encounter procedure 10/26/2024 9:30 AM EDT Appointment Radiation Oncology [address] [place] [address] CON CHEMO Radiation Oncology Comment on above: CON CHEMO Start: 10-25-2024 [facility] Start: 10-24-2024 [facility] Start: 10-23-2024 End: 10-23-2024 ambulatory 10/23/2024 10:00 AM EDT Infusion Center Hematology/Oncology [address] [place] [address] Wstr, Lab/[place] [facility] [address] [place] [address] PICC DRESSING CHANGE* Hematology/Oncology Comment on above: PICC DRESSING CHANGE* Start: 10-23-2024 End: 10-23-2024 Patient encounter procedure 10/23/2024 9:30 AM EDT Appointment Radiation Oncology [address] [place] [address] CON CHEMO Radiation Oncology Comment on above: CON CHEMO Start: 10-22-2024 End: 10-22-2024 Patient encounter procedure 10/22/2024 9:30 AM EDT Appointment Radiation Oncology [address] [place] [address] CON CHEMO Radiation Oncology Comment on above: CON CHEMO Start: 10-21-2024 End: 10-21-2024 Patient encounter procedure 10/21/2024 9:30 AM EDT Appointment Radiation Oncology [address] [place] [address] CON CHEMO Radiation Oncology Comment on above: CON CHEMO Start: 10-20-2024 End: 10-20-2024 Patient encounter procedure Radiation Oncology Comment on above: CON CHEMO Location: W-ON TREAT MENT VISIT Start: 10-19-2024 End: 10-19-2024 ambulatory Hematology/Oncology Comment on above: QWK CBC(PICC)DRESSING CHANGE* QWK(SO)CBC(PICC)DRES SING CHANGE* Start: 10-19-2024 End: 10-19-2024 Patient encounter procedure 10/19/2024 9:30 AM EDT Appointment Radiation Oncology [address] [place] [address] CON CHEMO Radiation Oncology Comment on above: CON CHEMO Start: 10-16-2024 End: 10-16-2024 ambulatory 10/16/2024 10:00 AM EDT Infusion Center Hematology/Oncology [address] [place] [address] Wstr, Lab/[place] [facility] [address] [place] [address] PICC DRESSING CHANGE* Hematology/Oncology Comment on above: PICC DRESSING CHANGE* Start: 10-16-2024 End: 10-16-2024 Patient encounter procedure 10/16/2024 9:30 AM EDT Appointment Radiation Oncology [address] [place] [address] CON CHEMO Radiation Oncology Comment on above: CON CHEMO Start: 10-15-2024 End: 10-15-2024 Patient encounter procedure 10/15/2024 9:30 AM EDT Appointment Radiation Oncology [address] [place] [address] CON CHEMO Radiation Oncology Comment on above: CON CHEMO Start: 10-14-2024 End: 10-14-2024 Patient encounter procedure 10/14/2024 9:30 AM EDT Appointment Radiation Oncology [address] [place] [address] CON CHEMO Radiation Oncology Comment on above: CON CHEMO Start: 10-13-2024 End: 10-13-2024 Patient encounter procedure Radiation Oncology Comment on above: CON CHEMO Location: W-ON TREAT MENT VISIT Start: 10-12-2024 End: 10-12-2024 ambulatory Hematology/Oncology Comment on above: QWK CBC(PICC)DRESSING CHANGE* QWK(SO)CBC(PICC)DRES SING CHANGE* QWK(SO)CBC(PICC) Start: 10-12-2024 End: 10-12-2024 Patient encounter procedure 10/12/2024 9:30 AM EDT Appointment Radiation Oncology [address] [place] [address] CON CHEMO Radiation Oncology Comment on above: CON CHEMO Start: 10-09-2024 End: 10-09-2024 ambulatory Hematology/Oncology Comment on above: D5 DC CADD* PICC DRESSING CHANGE D5 DC CADD* Start: 10-09-2024 End: 10-09-2024 Patient encounter procedure 10/09/2024 9:30 AM EDT Appointment Radiation Oncology [address] [place] [address] CON CHEMO Radiation Oncology Comment on above: CON CHEMO Start: 10-08-2024 End: 10-08-2024 Patient encounter procedure 10/08/2024 9:30 AM EDT Appointment Radiation Oncology [address] [place] [address] CON CHEMO Radiation Oncology Comment on above: CON CHEMO Start: 10-07-2024 End: 10-07-2024 Patient encounter procedure 10/07/2024 9:30 AM EDT Appointment Radiation Oncology [address] [place] [address] CON CHEMO Radiation Oncology Comment on above: CON CHEMO Start: 10-06-2024 End: 10-06-2024 Patient encounter procedure 10/06/2024 11:30 AM EDT Appointment Radiation Oncology [address] [place] [address] Sidney Joya MD [address] [place] [address] conc chemo Radiation Oncology Comment on above: conc chemo Start: 10-06-2024 End: 10-06-2024 Patient encounter procedure Radiation Oncology Comment on above: CON CHEMO Location: W-ON TREAT MENT VISIT Start: 10-06-2024 End: 10-06-2024 ambulatory 10/06/2024 8:45 AM EDT Results Only [place] [facility] Laboratory [address] [place] [address] [place] [facility] Laboratory Start: 10-05-2024 End: 10-05-2024 Patient encounter procedure 10/05/2024 11:00 AM EDT Appointment Radiation Oncology [address] [place], [place] [address] Sidney Joya MD [address] [place] [id number] CON CHEMO AT 915 WANTS 10 Radiation [...] Office Visit OB/Gynecology [address] [place], [place] [id number] Juan José Cheema MD [address] [place], [place] [address] Comment: General exam/PAP smear OB/Gynecology Comment on above: Comment: General exam/PAP smear Start: 09-30-2024 End: 09-30-2024 Patient encounter procedure 09/30/2024 9:10 AM EST Office Visit OB/Gynecology [address] [place] [address] Juan José Cheema MD [address] [place] [address] Comment: General exam/PAP smear-Okay to take this spot per Dr. Cheema OB/Gynecology Comment on above: Comment: General exam/PAP smear-Okay to take this spot per Dr. Cheema Start: 09-29-2024 End: 09-29-2024 Nursing evaluation of patient and report 09/29/2024 1:30 PM EST Nurse Visit Radiation Oncology [address] [place] [address] Wstr, Nurse Radt [facility] [address] [place] [id number] consent at 1245 Radiation Oncology Comment on above: consent at 1245 Start: 09-29-2024 End: 09-29-2024 Patient encounter procedure [facility] General Rheumatology and Arthritis Comment on above: 4 mo f/up post Sarah. pe consent at 1245. ful l bladder. conc chemo. marker? Start: 09-25-2024 End: 09-25-2024 ambulatory 09/25/2024 1:30 PM EST [facility] Hematology/Oncology [address] [place] [address] Wstr, 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 [facility] [address] [place] [address] CHEMO EDUCATION - ? Hematology/Oncology Comment on above: CHEMO EDUCATION - ? Start: 09-24-2024 End: 09-25-2024 [facility] Start: 09-23-2024 End: 09-23-2024 Patient encounter procedure 09/23/2024 3:20 PM EST Appointment Cat Scan [address] [place] [id number] Dx: Anal cancer (HCC) [C21.0] Cat Scan Comment on above: Dx: Anal cancer (HCC) [C21.0] Start: 09-23-2024 Subsequent hospital visit by physician 09/23/2024 2:30 PM EST Hospital Encounter Radiology [address] [place], [place] [address] Anal cancer (HCC) [C21.0] Radiology Comment on above: Anal cancer (HCC) [C21.0] Start: 09-23-2024 End: 09-23-2024 Patient encounter procedure Radiology Comment on above: Dx: Anal cancer (HCC) [C21.0] Start: 09-18-2024 End: 09-18-2024 Patient encounter procedure 09/18/2024 10:00 AM EST Office Visit [facility] General Rheumatology and Arthritis [address] [facility] [place], [place] [id number] Jennifer Arias MD [address] [facility] [address] [place], [place] [phone] 4 mo f/up post Sarah. pe [facility] General Rheumatology and Arthritis Comment on above: 4 mo f/up post Sarah. pe Start: 09-17-2024 End: 09-17-2024 Patient encounter procedure 09/17/2024 10:30 AM EST Office Visit Radiation Oncology [address] [place], [place] [id number] Sidney Joya MD [address] [place] [address] Anal cancer (HCC) [C21.0] Radiation Oncology Comment on above: Anal cancer (HCC) [C21.0] Start: 09-15-2024 End: 09-15-2024 ambulatory 09/15/2024 3:00 PM EST Visit (SP) Office Hematology/Oncology [address] [place] [address] Josh Bennett DO [address] [place] [address] Patient requested this date/time-EST COMPLEX, SEEN HERE [...] Anal cancer (HCC) Expected: 09/15/2024, Expires: 12/15/2024 [facility] Work Phone: Comment on above: Expected: 09/15/2024, Expires: Start: 09-15-2024 End: 12-15-2024 DPYD/UGT1A1 GENOTYPING PANEL DPYD/UGT1A1 GENOTYPING PANEL Lab Routine Anal cancer (HCC) Expected: 09/15/2024, Expires: 12/15/2024 [facility] Comment on above: Expected: 09/15/2024, Expires: Start: 09-15-2024 End: 12-15-2024 HIV 1+2 Ab [Presence] in Serum or Plasma by Immunoassay HIV 1/2 COMBO WITH REFLEX TO DIFFERENTIATION Lab Routine Anal cancer (HCC) Expected: 09/15/2024, Expires: 12/15/2024 [facility] Comment on above: Expected: 09/15/2024, Expires: Start: 09-03-2024 Patient discharge [facility] Start: 09-03-2024 [facility] Start: 09-02-2024 End: 09-03-2024 [facility] Start: 09-02-2024 Following clinical pathway protocol [facility] Start: 09-02-2024 Ambulation without limitation [facility] Start: 09-02-2024 Assessment of risk of venous thromboembolism [facility] Start: 09-02-2024 Catheterization of vein [facility] Start: 09-02-2024 Insertion of catheter into peripheral vein [facility] Start: 09-02-2024 Measuring intake and output [facility] Start: 09-02-2024 Providing care according to standard [facility] Start: 09-02-2024 Admission procedure [facility] Start: 09-02-2024 Anesthesia anorectal procedure ANESTH ANORECTAL SURGERY [facility] Start: 09-02-2024 Anoscopy w/bx single/multiple ANOSCOPY AND BIOPSY [facility] Start: 09-02-2024 I&d intramural im/absc transanal anes INCISION OF RECTAL ABSCESS [facility] Start: 09-02-2024 Patient referral to dietitian [facility] Start: 09-02-2024 [facility] Start: 08-20-2024 End: 08-20-2024 Patient encounter procedure [facility] [place] Comment on above: *orencia Q4wks Osteoporosis, unspec ified osteoporosis type, unspecified pathological fracture presence [M81.0] Start: 08-20-2024 End: 08-20-2024 ambulatory Hematology/Oncology Comment on above: 2 MO OV/LABS 08/17* CBC/IRON STUDIES* Start: 08-19-2024 End: 08-19-2024 ambulatory 08/19/2024 9:30 AM EST Visit (SP) Office Hematology/Oncology [address] [place] [address] Judi Portillo [address] [place] [address] 2 MO OV/LABS 08/17* Hematology/Oncology Comment on above: 2 MO OV/LABS 08/17* Start: 08-17-2024 End: 08-17-2024 ambulatory 08/17/2024 9:00 AM EST Results Only [place] [facility] Laboratory [address] [place] [address] CBC/IRON STUDIES* [facility] Laboratory Comment on above: CBC/IRON STUDIES* Start: 08-13-2024 End: 08-13-2024 Patient encounter procedure 08/13/2024 1:30 PM EST Infusion Center [facility] [place] [address] [place] [address] *orencia Q4wks + labs 200C [facility] [place] Comment on above: *orencia Q4wks + labs 200C Start: 07-29-2024 Advance Directive Discussion Advance Directive Discussion [facility] Start: 07-29-2024 Medicare Advantage Annual Wellness Visit Medicare Advantage Annual Wellness Visit [facility] Start: 07-23-2024 End: 07-23-2024 Patient encounter procedure 07/23/2024 10:30 AM EST [facility] [address] [place] [address] *orencia Q4wks [facility] Comment on above: *orencia Q4wks Start: 07-16-2024 End: 07-16-2024 Patient encounter procedure 07/16/2024 1:30 PM EST [facility]fusion [facility] [address] [place] [address] *orencia Q4wks + labs 200C [facility] Comment on above: *orencia Q4wks + labs 200C Start: 07-15-2024 End: 07-15-2024 Patient encounter procedure 07/15/2024 10:00 AM EST [facility]fusion [facility] [address] [place] [address] /// orencia Q4wks [facility] Infusion Center Comment on above: /// orencia Q4wks Start: 07-10-2024 Screening for osteoporosis Bone Density Screening [facility] Start: 07-10-2024 End: 07-10-2024 ambulatory 07/10/2024 10:00 AM EST Infusion Center Hematology/Oncology [address] [place] [address] 2nd Hematology/Oncology Comment on above: 2nd Start: 07-08-2024 End: 07-08-2024 ambulatory 07/08/2024 9:30 AM EST Infusion Center Hematology/Oncology [address] [place] [address] 2nd Hematology/Oncology Comment on above: 2nd Start: 07-06-2024 End: 07-06-2024 ambulatory 07/06/2024 1:30 PM EST Infusion Center Hematology/Oncology [address] [place] [address] 2nd Hematology/Oncology Comment on above: 2nd Start: 07-03-2024 End: 07-03-2024 ambulatory 07/03/2024 10:00 AM EST Infusion Center Hematology/Oncology [address] [place] [address] START IRON SUCROSE/D1-5/AUTH EXP ?* Hematology/Oncology Comment on above: START IRON SUCROSE/D1-5/AUTH EXP ?* Start: 07-02-2024 End: 07-02-2024 ambulatory 07/02/2024 8:30 AM EST Infusion Center Hematology/Oncology [address] [place] [address] 2nd Hematology/Oncology Comment on above: 2nd Start: 07-01-2024 End: 07-01-2024 ambulatory 07/01/2024 10:00 AM EST Infusion Center Hematology/Oncology [address] [place] [address] START IRON SUCROSE/D1-5/AUTH EXP ?* Hematology/Oncology Comment on above: START IRON SUCROSE/D1-5/AUTH EXP ?* Start: 06-29-2024 End: 06-29-2024 ambulatory 06/29/2024 9:00 AM [facility] Infusion Center Hematology/Oncology [address] [place] [address] START IRON SUCROSE/D1-5/AUTH EXP ?* Hematology/Oncology Comment on above: START IRON SUCROSE/D1-5/AUTH EXP ?* Start: 06-26-2024 End: 06-26-2024 ambulatory 06/26/2024 8:30 AM EST Infusion Center Hematology/Oncology [address] [place] [address] START IRON SUCROSE/D1-5/AUTH EXP ?* Hematology/Oncology Comment on above: START IRON SUCROSE/D1-5/AUTH EXP ?* Start: 06-24-2024 End: 06-24-2024 Patient encounter procedure 06/24/2024 10:30 AM EST Infusion Center [facility] [address] [place] [address] *orencia Q4wks [facility] Comment on above: *orencia Q4wks Start: 06-22-2024 End: 06-22-2024 ambulatory 06/22/2024 9:30 AM EST Infusion Center Hematology/Oncology [address] [place] [address] START IRON SUCROSE/D1-5/AUTH EXP ?* Hematology/Oncology Comment on above: START IRON SUCROSE/D1-5/AUTH EXP ?* Start: 06-18-2024 End: 06-18-2024 Patient encounter procedure 06/18/2024 1:30 PM EST Infusion Center [facility] [address] [place] [address] *orencia Q4wks + labs 200C [facility] Comment on above: *orencia Q4wks + labs 200C Start: 06-18-2024 End: 06-18-2024 ambulatory 06/18/2024 10:00 AM EST Infusion Center Hematology/Oncology [address] [place] [address] 2ND Hematology/Oncology Comment on above: 2ND Start: 06-17-2024 End: 06-17-2024 Patient encounter procedure 06/17/2024 10:00 AM EST Infusion Center [facility] [address] [place] [address] /// orencia Q4wks [facility] Comment on above: /// orencia Q4wks Start: 06-15-2024 End: 09-14-2024 Ferritin [Mass/volume] in Serum or Plasma [facility] Comment on above: Expected: 06/15/2024, Expires: Start: 06-15-2024 End: 09-14-2024 Iron and Iron binding capacity panel - Serum or Plasma [facility] Work Phone: Comment on above: Expected: 06/15/2024, Expires: Start: 06-15-2024 End: 06-15-2024 Patient encounter procedure 06/15/2024 1:30 PM EST Visit (SP) Office Hematology/Oncology [address] [place] [address] Josh Bennett DO [address] [address] (First open appointment)CARBON PRINTER/Iron deficiency anemia, unspecified iron deficiency anemia type [D50.9]/Sarah Pearson PA-C* Hematology/Oncology Comment on above: (First open appointment)CARBON PRINTER/Iron deficien cy anemia, unspecified iron deficiency anemia type [D50.9]/Sarah Pearson PA-C* Start: 05-28-2024 End: 05-28-2024 Patient encounter procedure 05/28/2024 10:30 AM EDT Infusion Center [facility] [address] [place] [address] *orencia Q4wks [facility] Comment on above: *orencia Q4wks Start: 05-20-2024 End: 05-20-2024 Patient encounter procedure 05/20/2024 10:00 AM EDT Infusion Center [facility] [address] [place] [address] /// orencia Q4wks [facility] Comment on above: /// orencia Q4wks Start: 05-19-2024 DIABETES SCREEN DIABETES SCREEN [facility] Start: 05-14-2024 End: 05-14-2024 Patient encounter procedure 05/14/2024 11:40 AM EDT Office Visit [facility] Rheumatology and Arthritis [address] [place], [place] [address] Jennifer Arias MD [address] [place] [address] Oct end in office [facility] General Rheumatology and Arthritis Comment on above: Oct end in office Start: 05-06-2024 End: 05-06-2024 Patient encounter procedure 05/06/2024 10:30 AM EDT Infusion Center [facility] [address] [place] [address] orencia [facility] [place] Comment on above: orencia Start: 04-30-2024 End: 04-30-2024 Patient encounter procedure [facility] [place] Comment on above: //// reclast NEW LOCATION //// reclast + Orenc ia * reclast + Orencia Start: 04-22-2024 End: 04-22-2024 Patient encounter procedure 04/22/2024 10:30 AM EDT Infusion Center [facility] [place] [address] [place] [address] *orencia Q4wks [facility] [place] Comment on above: *orencia Q4wks Start: 2024 Advance Directive Discussion Advance Directive Discussion [facility] Start: 2024 PNEUMOCOCCAL (4 - PPSV23 if available, else PCV20) PNEUMOCOCCAL (4 - PPSV23 if available, else PCV20) [facility] Start: 2024 PNEUMOCOCCAL (4 - PPSV23 or PCV20) PNEUMOCOCCAL (4 - PPSV23 or PCV20) [facility] Start: 2024 Pneumococcal vaccination [facility] Start: 2024 Pneumococcal Vaccine: 65+ (4 of 4 - PPSV23 or PCV20) Pneumococcal Vaccine: 65+ (4 of 4 - PPSV23 or PCV20) [facility] Start: 2024 End: 2024 Patient encounter procedure 2024 10:30 AM EDT Infusion Center [facility] [place] [address] [place] [address] orencia [facility] [place] Comment on above: orencia Start: 03-29-2024 Influenza vaccination [facility] Start: 03-25-2024 End: 03-25-2024 Patient encounter procedure 03/25/2024 10:00 AM EDT Infusion Center [facility] [address] [place] [address] *orencia Q4wks [facility] Comment on above: *orencia Q4wks Start: 03-11-2024 Pneumococcal Vaccine: 50+ (4 of 4 - PCV20 or PCV21) Pneumococcal Vaccine: 50+ (4 of 4 - PCV20 or PCV21) [facility] Start: 03-11-2024 Urine microalbumin profile [facility] Start: 03-11-2024 End: 03-11-2024 Patient encounter procedure 03/11/2024 10:30 AM EDT [facility] Infusion Center [address] [place] [address] orencia [facility] [place] Comment on above: orencia Start: 03-03-2024 End: 03-03-2024 Patient encounter procedure 03/03/2024 3:[address] [facility] General Rheumatology and Arthritis [address] [place] [address] Sarah Pearson, PA-C [address] [place] [address] Oct end in office [facility] Rheumatology and Arthritis Comment on above: Oct end in office Start: 02-26-2024 End: 02-26-2024 Patient encounter procedure 02/26/2024 10:00 AM EDT Infusion Center [facility] [address] [place] [address] *orencia Q4wks [facility] [place] Comment on above: *orencia Q4wks Start: 02-25-2024 End: 02-25-2024 Patient encounter procedure 02/25/2024 9:40 AM EDT [facility] [address] [place] [address] Sarah Pearson, PA-C [address] [place] [address] Oct end in office [facility] Rhe[facility]ology [facility] Arthritis Comment on above: Oct end in office Start: 02-12-2024 End: 02-12-2024 Patient encounter procedure 02/12/2024 10:30 AM EDT Infusion Center [facility] [address] [place] [address] orencia [facility] Comment on above: orencia Start: 01-29-2024 End: 01-29-2024 Patient encounter procedure 01/29/2024 10:00 AM EDT Infusion Center [facility] [address] [place] [address] *orencia Q4wks [facility] Comment on above: *orencia Q4wks Start: 01-15-2024 End: 01-15-2024 Patient encounter procedure 01/15/2024 10:30 AM EDT Infusion Center [facility] [address] [place] [address] orencia [facility] Comment on above: orencia Start: 12-18-2023 End: 12-18-2023 Patient encounter procedure 12/18/2023 10:30 AM EDT Infusion Center [facility] [address] [place] [address] [facility] Comment on above: orencia Start: 11-21-2023 End: 11-21-2023 Patient encounter procedure 11/21/2023 11:00 AM EDT [facility] [address] [place], [place] [address] Jennifer Arias MD [address] [place] [address] Return in about 6 months (around 11/20/2023) for , Dr. Arias. [facility] Comment on above: Return in about 6 months (around 11/20/19) for RADr. Arias. Start: 11-19-2023 Lipid 1996 panel - Serum or Plasma Lipid Screening [facility] Start: 11-19-2023 Lipid panel Lipid Screening [facility] Start: 11-19-2023 LIPID SCREEN LIPID SCREEN [facility] Start: 10-19-2023 [facility] Start: 10-19-2023 Incentive spirometry [facility] Start: 09-06-2023 Elastase.pancreatic [Presence] in Stool [facility] Start: 09-06-2023 Giardia lamblia Ag [Presence] in Stool by Immunoassay [facility] Start: 09-06-2023 Procedure [facility] Start: 05-17-2023 ANNUAL PCP TEAM CHRONIC DISEASE VISIT ANNUAL PCP TEAM CHRONIC DISEASE VISIT [facility] Start: 04-25-2023 End: 04-23-2024 BLOOD TB SCREEN, INCUBATED [facility] Work Phone: Comment on above: Expected: 04/25/2023, Expires: 4 Start: 04-25-2023 End: 06-25-2023 Chronic hepatitis differentiation between hepatitis B and C virus panel - Serum or Plasma [facility] Work Phone: Comment on above: Expected: 04/25/2023, Expires: 3 Start: 03-29-2023 Influenza vaccination [facility] Start: 02-06-2023 HPV TESTING HPV TESTING [facility] Start: 02-06-2023 PAP TESTING PAP TESTING [facility] Start: 02-06-2023 Screening for malignant neoplasm of cervix [facility] Start: 01-24-2023 Patient discharge [facility] Start: 01-23-2023 Following clinical pathway protocol [facility] Start: 01-23-2023 Application of intermittent pneumatic compression device [facility] Start: 01-23-2023 Provision of overbed trapeze [facility] Start: 01-23-2023 Recommendation to continue with treatment [facility] Start: 01-23-2023 Admission procedure [facility] Start: 01-23-2023 Ambulation therapy management [facility] Start: 01-23-2023 Application of device [facility] Start: 01-23-2023 Assessment of risk of venous thromboembolism [facility] Start: 01-23-2023 Catheterization of vein [facility] Start: 01-23-2023 Exercises [facility] Start: 01-23-2023 Following clinical pathway protocol [facility] Start: 01-23-2023 Incentive spirometry [facility] Start: 01-23-2023 Introduction of urinary catheter [facility] Start: 01-23-2023 Measuring intake and output [facility] Start: 01-23-[address] [facility] Start: 01-23-2023 Patient education [facility] Start: 01-23-2023 Procedure discontinued [facility] Start: 01-23-2023 Provision of activity privileges [facility] Start: 01-23-2023 Referral to occupational therapist [facility] Start: 01-23-2023 Referral to service [facility] Start: 01-23-[address] [facility] Start: 01-23-2023 Wound care [facility] Start: 01-23-2023 [facility] Start: 12-05-2022 Protein measurement [facility] Start: 11-06-2022 Colonoscopy w/biopsy single/multiple COLONOSCOPY AND BIOPSY [facility] Start: 11-06-2022 Egd transoral biopsy single/multiple EGD BIOPSY SINGLE/MULTIPLE [facility] Start: 11-06-2022 Patient discharge [facility] Start: 10-18-2022 End: 12-18-2022 25-hydroxyvitamin D3 [Mass/volume] in Serum or Plasma [facility] Work Phone: Comment on above: Expected: 10/18/2022, Expires: 3 Start: 10-18-2022 End: 12-18-2022 C reactive protein [Mass/volume] in Serum or Plasma [facility] Work Phone: Comment on above: Expected: 10/18/2022, Expires: 3 Start: 10-18-2022 End: 12-18-2022 Comprehensive metabolic 2000 panel - Serum or Plasma [facility] Work Phone: Comment on above: Expected: 10/18/2022, Expires: 3 Start: 10-18-2022 End: 12-18-2022 Erythrocyte sedimentation rate [facility] Work Phone: Comment on above: Expected: 10/18/2022, Expires: 3 Start: 10-18-2022 End: 12-18-2022 Parathyrin.intact [Mass/volume] in Serum or Plasma [facility] Work Phone: Comment on above: Expected: 10/18/2022, Expires: 3 Start: 10-06-2022 ANNUAL PCP TEAM CHRONIC DISEASE VISIT ANNUAL PCP TEAM CHRONIC DISEASE VISIT [facility] Start: 10-06-2022 BP CONTROLLED (<130/80) BP CONTROLLED (<130/80) [facility] Start: 03-29-2022 Influenza vaccination INFLUENZA (#1) [facility] Start: 01-23-2022 End: 03-25-2022 Hemoglobin A1c in Blood HGB A1C Lab Routine Class 1 obesity with body mass index (BMI) of 34.0 to 34.9 in adult Expected: 01/23/2022, Expires: 03/25/2022 [facility] Work Phone: Comment on above: Expected: 01/23/2022, Expires: 2 Start: 01-23-2022 End: 03-25-2022 Lipid 1996 panel - Serum or Plasma LIPID PANEL BASIC Lab Routine Hyperlipidemia with target LDL less than 130 Expected: 01/23/2022, Expires: 03/25/2022 [facility] Work Phone: Comment on above: Expected: 01/23/2022, Expires: 2 Start: 01-23-2022 End: 03-25-2022 SCHEDULE LAB TESTING SCHEDULE LAB TESTING Lab Routine Expected: 01/23/2022, Expires: 03/25/2022 [facility] Work Phone: Comment on above: Expected: 01/23/2022, Expires: 2 Start: 03-03-2021 Influenza vaccination LUNG CANCER SCREENING [facility] Start: 03-03-2021 Screening for malignant neoplasm of lung Lung Cancer Screening [facility] Start: 2019 RSV Vaccine (1 - 1-dose 60+ series) RSV Vaccine (1 - 1-dose 60+ series) [facility] Start: 2019 RSV Vaccine (1 - Risk 60-74 years 1-dose series) RSV Vaccine (1 - Risk 60-74 years 1-dose series) [facility] Start: 02-06-2019 Screening for malignant neoplasm of cervix Cervical Cancer Screening [facility] Start: 12-10-2018 Mammography [facility] Start: 12-10-2018 Screening for malignant neoplasm of breast Mammogram Screening [facility] Start: 2009 SHINGRIX VACCINE (1 of 2) SHINGRIX VACCINE (1 of 2) [facility] Start: 2004 COLOGUARD (FIT-DNA) COLOGUARD (FIT-DNA) [facility] Start: [address] COLONOGRAPHY [facility] Start: 2004 FECAL OCCULT BLOOD FECAL OCCULT BLOOD [facility] Start: 2004 Screening for malignant neoplasm of colon [facility] Start: 2004 SIGMOIDOSCOPY SIGMOIDOSCOPY [facility] Start: 1989 Zoledronic acid therapy ALPHA-1 ANTITRYPSIN DEFICIENCY SCREENING [facility] Start: 1978 SHINGRIX VACCINE (1 of 2) SHINGRIX VACCINE (1 of 2) [facility] Start: 1977 Anxiety Screening Anxiety Screening [facility] Start: 1977 BP CONTROLLED (<130/80) BP CONTROLLED (<130/80) [facility] Start: 1977 HIV SCREENING HIV SCREENING [facility] Start: 1977 HIV screening HIV Screening [facility] Start: 1971 COVID-19 VACCINE (1) COVID-19 VACCINE (1) [facility] Start: 1964 COVID-19 VACCINE (#1) COVID-19 VACCINE (#1) [facility] Start: 1959 COVID-19 VACCINE (#1) COVID-19 VACCINE (#1) [facility] End: 10-25-2023 25-hydroxyvitamin D3 [Mass/volume] in Serum or Plasma VITAMIN D 25 HYDROXY Lab Routine Rheumatoid arthritis involving multiple sites, unspecified whether rheumatoid factor present (HCC) Vitamin D deficiency Every 6 months for 2 Occurrences starting 10/25/2022 until 10/25/2023 [facility] Work Phone: Comment on above: Every 6 months for 2 Occurrences startin g 10/25/2022 until 10/25/2023 C reactive protein [Mass/volume] in Serum or Plasma C-REACTIVE PROTEIN (CRP) Lab Routine Rheumatoid arthritis involving multiple sites with positive rheumatoid factor (HCC) 11/02/2021 10:51 AM EDT [facility] Work Phone: End: 10-24-2023 C reactive protein [Mass/volume] in Serum or Plasma C-REACTIVE PROTEIN (CRP) Lab Routine Rheumatoid arthritis involving multiple sites, unspecified whether rheumatoid factor present (HCC) Every 3 months for 4 Occurrences starting 10/25/2022 until 10/24/2023 [facility] Work Phone: Comment on above: Every 3 months for 4 Occurrences startin g 10/25/2022 until 10/24/2023 End: 10-24-2023 CBC panel - Blood by Automated count CBC Lab Routine Rheumatoid arthritis involving multiple sites, unspecified whether rheumatoid factor present (HCC) Every 3 months for 4 Occurrences starting 10/25/2022 until 10/24/2023 [facility] Work Phone: Comment on above: Every 3 months for 4 Occurrences startin g 10/25/2022 until 10/24/2023 CBC W Auto Different ial panel - Blood CBC + DIFF Lab Routine Rheumatoid arthritis involving multiple sites with positive rheumatoid factor (HCC) 11/02/2021 10:51 AM EDT [facility] Work Phone: End: 11-19-2024 CBC W Auto Differential panel - Blood COMPLETE BLOOD COUNT AND DIFFERENTIAL Lab Routine Rheumatoid arthritis involving multiple sites with positive rheumatoid factor (HCC) Every 3 months for 4 Occurrences starting 11/20/2023 until 11/19/2024, 1 completed [facility] Work Phone: Comment on above: Every 3 months for 4 Occurrences startin g 11/20/2023 until 11/19/2024, 1 completed End: 01-28-2025 CBC W Auto Differential panel - Blood COMPLETE BLOOD COUNT AND DIFFERENTIAL Lab Routine Rheumatoid arthritis involving multiple sites with positive rheumatoid factor (HCC) Every 3 months for 4 Occurrences starting 01/29/2024 until 01/28/2025 [facility] Work Phone: Comment on above: Every 3 months for 4 Occurrences startin g 01/29/2024 until 01/28/2025 End: 05-21-2025 CBC W Auto Differential panel - Blood COMPLETE BLOOD COUNT AND DIFFERENTIAL Lab Routine Rheumatoid arthritis involving multiple sites with positive rheumatoid factor (HCC) Every 3 months for 4 Occurrences starting 05/21/2024 until 05/21/2025, 1 completed [facility] Work Phone: Comment on above: Every 3 months for 4 Occurrences startin g 05/21/2024 until 05/21/2025, 1 completed CBC W Auto Different ial panel - Blood [facility] Chronic hepatitis differentiation between hepatitis B and C virus panel - Serum or Plasma HEP REMOTE PANEL BL Lab Routine Anal cancer (HCC) 09/16/2024 12:35 PM [facility] Clostridioides diffi cile DNA [Presence] in Unspecified specimen by CORAL with probe detection [facility] Colonoscopy [facility] Comprehensive metabo lic 2000 panel - Serum or Plasma COMP METABOLIC PANEL Lab Routine Rheumatoid arthritis involving multiple sites with positive rheumatoid factor (HCC) 11/02/2021 10:51 AM EDT [facility] Work Phone: End: 10-24-2023 Comprehensive metabolic 2000 panel - Serum or Plasma COMP METABOLIC PANEL Lab Routine Rheumatoid arthritis involving multiple sites, unspecified whether rheumatoid factor present (HCC) Every 3 months for 4 Occurrences starting 10/25/2022 until 10/24/2023 [facility] Work Phone: Comment on above: Every 3 months for 4 Occurrences startin g 10/25/2022 until 10/24/2023 End: 11-19-2024 Comprehensive metabolic 2000 panel - Serum or Plasma COMPREHENSIVE METABOLIC PANEL Lab Routine Rheumatoid arthritis involving multiple sites with positive rheumatoid factor (HCC) Every 3 months for 4 Occurrences starting 11/20/2023 until 11/19/2024, 1 completed [facility] Comment on above: Every 3 months for 4 Occurrences startin g 11/20/2023 until 11/19/2024, 1 completed End: 01-28-2025 Comprehensive metabolic 2000 panel - Serum or Plasma COMPREHENSIVE METABOLIC PANEL Lab Routine Rheumatoid arthritis involving multiple sites with positive rheumatoid factor (HCC) Every 3 months for 4 Occurrences starting 01/29/2024 until 01/28/2025 [facility] Comment on above: Every 3 months for 4 Occurrences startin g 01/29/2024 until 01/28/2025 End: 05-21-2025 Comprehensive metabolic 2000 panel - Serum or Plasma COMPREHENSIVE METABOLIC PANEL Lab Routine Rheumatoid arthritis involving multiple sites with positive rheumatoid factor (HCC) Every 3 months for 4 Occurrences starting 05/21/2024 until 05/21/2025 [facility] Comment on above: Every 3 months for 4 Occurrences startin g 05/21/2024 until 05/21/2025 Comprehensive metabo lic 2000 panel - Serum or Plasma COMPREHENSIVE METABOLIC PANEL Lab Routine Rheumatoid arthritis involving multiple sites with positive rheumatoid factor (HCC) 05/21/2024 1:31 PM EDT [facility] Comprehensive metabo lic 2000 panel - Serum or Plasma [facility] End: 04-18-2026 CT Abdomen and Pelvis W contrast IV CT ABD/PEL W IVCON Radiology Routine Malignant neoplasm of anus (HCC) 1 Occurrences starting 03/19/2025 until 04/18/2026 [facility] Work Phone: Comment on above: 1 Occurrences starting 03/19/2025 until 04/18/2026 End: 10-16-2025 CT Chest W contrast IV CT CHEST W IVCON Radiology STAT Anal cancer (HCC) 1 Occurrences starting 09/16/2024 until 10/16/2025 [facility] Work Phone: Comment on above: 1 Occurrences starting 09/16/2024 until 10/16/2025 End: 04-18-2026 CT Chest W contrast IV CT CHEST W IVCON Radiology Routine Malignant neoplasm of anus (HCC) 1 Occurrences starting 03/19/2025 until 04/18/2026 [facility] Comment on above: 1 Occurrences starting 03/19/2025 until 04/18/2026 CT Guidance for radi ation treatment of Unspecified body region CT SIM PLANNING RADIATION ONCOLOGY Radiology Routine Anal cancer (HCC) Ordered: 10/01/2024 [facility] Work Phone: Comment on above: Ordered: 10/01/2024 End: 10-30-2025 DBT Breast - bilateral screening MARIA TERESA SCREENING W [place] Radiology Routine Encounter for gynecological examination (general) (routine) without abnormal findings Encounter for screening mammogram for breast cancer 1 Occurrences starting 09/30/2024 until 10/30/2025 [facility] Work Phone: Comment on above: 1 Occurrences starting 09/30/2024 until 10/30/2025 DBT Breast - bilater al screening MARIA TERESA SCREENING W [facility]ER[facility] Radiology Routine Encounter for gynecological examination (general) (routine) without abnormal findings Encounter for screening mammogram for breast cancer 09/30/2024 10:49 AM [facility] DPYD/UGT1A1 GENOTYPI NG PANEL DPYD/UGT1A1 GENOTYPING PANEL Lab Routine Anal cancer ([facility]) 09/16/2024 12:35 PM [facility] End: 07-26-2023 Dxa bone density study 1/> sites axial skel DXA-AXIAL SKELETON Radiology Routine Localized osteoporosis without current pathological fracture 1 Occurrences starting 06/26/2022 until 07/26/2023 [facility] Work Phone: Comment on above: 1 Occurrences starting 06/26/2022 until 07/26/2023 End: 06-14-2025 DXA Skeletal system.axial Views for bone density DXA-AXIAL SKELETON Radiology Routine Osteoporosis, unspecified osteoporosis type, unspecified pathological fracture presence 1 Occurrences starting 05/15/2024 until 06/14/2025 [facility] Work Phone: Comment on above: 1 Occurrences starting 05/15/2024 until 06/14/2025 DXA Skeletal system. axial Views for bone density DXA-AXIAL SKELETON Radiology Routine Osteoporosis, unspecified osteoporosis type, unspecified pathological fracture presence 08/20/2024 9:45 AM [facility] Work Phone: Elastase, pancreatic (el-1), fecal; quantitative [facility] Erythrocyte sediment ation rate SED RATE WESTERGREN Lab Routine Rheumatoid arthritis involving multiple sites with positive rheumatoid factor ([facility]) 11/02/2021 10:51 AM EDT [facility] Work Phone: Erythrocyte sediment ation rate SED RATE WESTERGREN Lab Routine Rheumatoid arthritis involving multiple sites with positive rheumatoid factor ([facility]) 03/05/2022 1:14 PM EDT [facility] Work Phone: Erythrocyte sediment ation rate SED RATE WESTERGREN Lab Routine Rheumatoid arthritis involving multiple sites with positive rheumatoid factor (HCC) 07/17/2022 11:28 AM EST [facility] Work Phone: End: 10-24-2023 Erythrocyte sedimentation rate SED RATE WESTERGREN Lab Routine Rheumatoid arthritis involving multiple sites, unspecified whether rheumatoid factor present ([facility]) Every 3 months for 4 Occurrences starting 10/25/2022 until 10/24/2023 [facility] Work Phone: Comment on above: Every 3 months for 4 Occurrences startin g 10/25/2022 until 10/24/2023 Gastrointestinal pathogens panel - Stool by CORAL with probe detection [facility] Giardia lamblia Ag [Presence] in Stool by Immunoassay [facility] Hepatitis B virus co re Ab [Presence] in Serum HEP B CORE AB TOTAL Lab Routine Rheumatoid arthritis involving multiple sites, unspecified whether rheumatoid factor present ([facility]) 04/25/2023 10:33 AM EDT [facility] Work Phone: HIV 1+2 Ab [Presence ] in Serum or Plasma by Immunoassay HIV 1/2 COMBO WITH REFLEX TO DIFFERENTIATION Lab Routine Anal cancer ([facility]) 09/16/2024 12:35 PM EST [facility] Influenza virus A an d B RNA and SARS-CoV-2 (COVID-19) N gene panel - Respiratory specimen by CORAL with probe detection COVID WITH FLUA+B, ROUTINE Microbiology Routine Exposure to 2019 novel coronavirus Ordered: 05/16/2022 [facility] Work Phone: Comment on above: Ordered: 05/16/2022 Lactoferrin [Presenc e] in Stool by Immunoassay [facility] Lactoferrin [Presenc e] in Stool by Immunoassay [facility] Lactoferrin [Presenc e] in Stool by Immunoassay [facility] End: 02-23-2023 MARIA TERESA SCREENING W CAMERON MARIA TERESA SCREENING W CAMER[facility] Radiology Routine Encounter for screening mammogram for breast cancer 1 Occurrences starting 01/24/2022 until 02/23/2023 [facility] Work Phone: Comment on above: 1 Occurrences starting 01/24/2022 until 02/23/2023 End: 10-16-2025 MR Pelvis WO and W contrast IV MRI PELVIS WO/W IVCON Radiology STAT Anal cancer (HCC) 1 Occurrences starting 09/16/2024 until 10/16/2025 [facility] Comment on above: 1 Occurrences starting 09/16/2024 until 10/16/2025 MR Pelvis WO and W contrast IV MRI PELVIS WO/W IVCON Radiology STAT Anal cancer (HCC) 09/23/2024 4:24 PM EST [facility] Work Phone: MR Pelvis WO and W contrast IV MRI PELVIS WO/W IVCON Radiology Routine Malignant neoplasm of anus (HCC) Anal cancer (HCC) 02/01/2025 11:43 AM EDT [facility] Work Phone: MRI of small intestine [facility] Ova and parasites identified in Unspecified specimen by Light microscopy [facility] PAP TEST PAP TEST Lab Stephanie pickens Encounter for screening for human papillomavirus (HPV) Pap smear for cervical cancer screening 09/30/2024 10:46 AM EST [facility] Patient Education [facility] Work Phone: Patient referral [facility] Work Phone: End: 10-15-2025 PET+CT Guidance for localization of tumor of Skull base to mid-thigh-- W 18F-FDG IV NM PET/CT SKULL-THIGH INITIAL Radiology Routine Anal cancer (HCC) 1 Occurrences starting 09/15/2024 until 10/15/2025 [facility] Comment on above: 1 Occurrences starting 09/15/2024 until 10/15/2025 POST VOID RESIDUAL POST VOID RES IDUAL Procedures Routine Urinary urgency Ordered: 10/21/2024 [facility] Work Phone: Comment on above: Ordered: 10/21/[address] [facility] Protein measurement [facility] Protein measurement [facility] Protein measurement [facility] Radiologic exam esop hagus double contrast study [facility] Radionuclide gastric emptying study [facility] Stroke after atrial fibrillation 5 year risk [#] Rojelio 2002 IR PORTOCATH PLACEMENT Radiology MORAIMA Anal cancer (HCC) Rheumatoid arthritis involving multiple sites with positive rheumatoid factor (HCC) Ordered: 10/26/2024 [facility] Work Phone: Comment on above: Ordered: 10/26/2024 US Lower extremity vein US LEG V EIN DVT [facility] Vascular Lab STAT Anal cancer (HCC) Right leg pain 09/16/2024 11:36 AM EST [facility] End: 10-19-2025 US Upper extremity veins US ARM VEIN DVT [facility] Vascular Lab STAT Anal cancer (HCC) PICC (peripherally inserted central catheter) in place Arm swelling 1 Occurrences starting 10/19/2024 until 10/19/2025 [facility] Work Phone: Comment on above: 1 Occurrences starting 10/19/2024 until 10/19/2025 Vitamin B12 measurement [facility] Vitamin D, 25-hydrox y measurement [facility] End: 07-26-2023 XR HIP GENERAL 3V PELV/AP/LAT LEFT XR HIP GENERAL 3V PELV/AP/LAT LEFT Radiology Routine Pain in left hip Fall, initial encounter 1 Occurrences starting 06/26/2022 until 07/26/2023 [facility] Work Phone: Comment on above: 1 Occurrences starting 06/26/2022 until 07/26/2023 End: 06-26-2022 XR HIP GENERAL 3V PELV/AP/LAT LEFT [facility] Work Phone: Comment on above: 1 Occurrences starting 06/26/2022 until 06/26/2022 [facility] Immunizations Immunization Date Immunization Notes Care Provider Nilton escobar 08-07-2022 influenza virus vacc ine, unspecified formulation Jenniefr Arias MD Work Phone: [facility] 05-01-2021 influenza, injectabl e, quadrivalent, contains preservative Jennifer Arias MD Work Phone: [facility] Work Phone: 06-01-2020 influenza, injectabl e, quadrivalent, contains preservative Jennifer Arias MD Work Phone: [facility] Work Phone: 03-11-2019 pneumococcal polysaccharide vaccine, 23 valent Jennifer Arias MD Work Phone: [facility] Work Phone: 02-09-2019 pneumococcal conjuga te vaccine, 13 valent Jennifer Arias MD Work Phone: [facility] Work Phone: 06-02-2018 influenza, injectabl e, quadrivalent, contains preservative Jennifer Arias MD Work Phone: [facility] Work Phone: 04-16-2017 influenza, injectabl e, quadrivalent, contains preservative Jennifer Arias MD Work Phone: [facility] Work Phone: 07-09-2016 influenza, injectabl e, quadrivalent, contains preservative Jennifer Arias MD Work Phone: [facility] Work Phone: 05-16-2015 influenza, injectabl e, quadrivalent, contains preservative Jennifer Arias MD Work Phone: [facility] 06-03-2014 influenza, seasonal, injectable Jennifer Arias MD Work Phone: [facility] Work Phone: 03-11-2014 pneumococcal polysaccharide vaccine, 23 valent Jennifer Arias MD Work Phone: [facility] Work Phone: 03-11-2014 tetanus toxoid, redu cj diphtheria toxoid, and acellular pertussis vaccine, adsorbed Jennifer Arias MD Work Phone: [facility] Work Phone: 05-12-2012 influenza virus vacc ine, unspecified formulation Jennifer Arias MD Work Phone: [facility] Work Phone: Payers Date Payer Category Payer Medicaid [id number] 2024 Self-pay [id number] 2022 Medicare (Managed Care) 1.2. [id number] 2022 Unknown [id number] 2020 Medicare [facility] MEDICARE [facility] DUAL COMPLETE HMO SNP [id number] 2020-[facility] [phone] [address] [place] [address] Medicare [id number] 2020 Medicare [id number] .[id number] 2019 Medicaid [id number]. [id number] .[id number] 2015 Unknown [id number] 1959 Unknown [id number] 2.16.840.1.901903.3.579.2.6 51 1959 Unknown [id number] 2.16.840.1.447089.3.579.2.6 51 1959 Unknown [id number] 2.16.840.1.822400.3.579.2.6 51 1959 Unknown [id number] 2.16.840.1.192578.3.579.2.6 51 1959 Unknown [id number] 2.16.840.1.341175.3.579.2.6 51 1959 Unknown [id number] 2.16.840.1.237456.3.579.2.6 51 1959 Unknown [id number] 2.16.840.1.714395.3.579.2.6 51 1959 Unknown [id number] 2.16.840.1.241720.3.579.2.6 51 Medicare [id number] Medicare [id number] Private Health Insurance [id number] Unknown [id number] Unknown [id number] 2.16.840.1.957603.3.579.2.4 62 Unknown [id number] 2.16.840.1.297656.3.579.2.4 62 Unknown [id number] 2.16.840.1.613069.3.579.2.4 62 Unknown [id number] 2.16.840.1.534389.3.579.2.4 62 Unknown [id number] 2.16.840.1.012261.3.579.2.4 62 Unknown [id number] 2.16.840.1.452290.3.579.2.4 62 Unknown [id number] 2.16.840.1.008034.3.579.2.4 62 Unknown [id number] 2.16.840.1.756766.3.579.2.4 62 Unknown [id number] 2.16.840.1.556136.3.579.2.4 62 Unknown [id number] 2.16.840.1.511539.3.579.2.4 62 Unknown [id number] 2.16.840.1.719086.3.579.2.4 62 Unknown [id number] 2.16.840.1.584270.3.579.2.4 62 Unknown [id number] 2.16.840.1.980483.3.579.2.4 62 Unknown [id number] 2.16.840.1.569586.3.579.2.4 62 Unknown [id number] 2.16.840.1.255908.3.579.2.4 62 Unknown [id number] 2.16.840.1.703686.3.579.2.4 62 Unknown [id number] 2.16.840.1.984182.3.579.2.4 62 Unknown [id number] 2.16.840.1.372477.3.579.2.4 62 Unknown [id number] 2.16.840.1.622527.3.579.2.4 62 Unknown [id number] 2.16.840.1.819270.3.579.2.4 62 Unknown [id number] 2.16.840.1.853635.3.579.2.4 62 Unknown [id number] 2.16.840.1.962999.3.579.2.4 62 Unknown [id number] 2.16.840.1.327783.3.579.2.4 62 Unknown [id number] 2.16.840.1.992525.3.579.2.4 62 Unknown [id number] 2.16.840.1.029472.3.579.2.4 62 Unknown [id number] 2.16.840.1.323740.3.579.2.4 62 Unknown [id number] 2.16.840.1.973718.3.579.2.4 62 Unknown [id number] 2.16.840.1.411824.3.579.2.4 62 Unknown [id number] 2.16.840.1.630958.3.579.2.4 62 Social History Date Type Detail Facility Start: 01-28-2019 End: 09-02-2024 Ex-smoker (finding) [facility] Start: 1960 Sex Assigned At Female A [facility] Start: 01-02-1984 End: 01-01-2015 History of tobacco use Current smoker [facility] Start: 01-02-1984 End: 01-01-2015 History of tobacco use Cigarette Smoker [facility] Start: 02-08-2012 End: 11-20-2023 Cigarettes smoked current (pack per day) - Reported 1 [facility] Start: 02-08-2012 End: 09-02-2024 Tobacco use and exposure Smokeless tobacco non-user [facility] Start: 10-06-2021 End: 03-19-2025 Alcohol intake Current non-drinker of alcohol (finding) [facility] Start: 05-31-2020 End: 05-17-2022 History SDOH Alcohol Frequency 1 [facility] Start: 05-31-2020 History SDOH Alcohol Std Drinks 98 [facility] Start: 05-31-2020 History SDOH Social Connections Phone 5 [facility] Start: 05-31-2020 End: 05-17-2022 History SDOH Social Connections Get Together 2 [facility] Start: 05-31-2020 History SDOH Physica l Activity DPW 0 [facility] Start: 05-31-2020 History SDOH Financial 3 [facility] Start: 06-11-2019 Education 15 [facility] Start: 03-03-2019 End: 05-16-2022 Tobacco Comment ETS: Father in childhood home. Active smoker in current home. [facility] Start: 1960 Sex Assigned At Not on file [facility] Start: 10-21-2021 End: 10-31-2021 Exposure to SARS-CoV-2 (event) Unable to assess [facility] Start: 01-09-2021 End: 06-26-2022 Exposure to SARS-CoV-2 (event) Not sure [facility] Start: 05-06-2022 End: 05-16-2022 Exposure to SARS-CoV-2 (event) Yes [facility] Work Phone: Start: 09-12-2022 End: 10-19-2023 Tobacco smoking status NHIS Unknown if ever smoked [facility] Start: 01-24-2020 None [facility] Start: 01-24-2020 With Family [facility] Start: 12-28-2015 Non-smoker [facility] Start: 05-31-2020 End: 11-20-2023 Social connection and isolation panel [facility] Do you belong to any clubs or organizations such as worship groups, unions, fraternal or athletic groups, or school groups? No [facility] Are you now , , , , never or living with a partner? [facility] How often to you hav e a drink containing alcohol? Never [facility] Start: 06-29-[address] inks containing alcohol do you have on a typical day? Patient refused [facility] How hard is it for y ou to pay for the very basics like food, housing, medical care, and heating Somewhat hard [facility] Do you feel stress - tense, restless, nervous, or anxious, or unable to sleep at night because your mind is troubled all the time - these days [OSQ] Very much [facility] (I/We) worried niko er (my/our) food would run out before (I/we) got money to buy more. Sometimes true [facility] Start: 10-13-2024 End: 10-30-2024 Sex Female (finding) [facility] NEGATED: Highlighted row [facility] NEGATED: Highlighted row Not [facility] Medical Equipment Procedure Code Equipment Code Equipment Original Text Equipment Identifier Dates FDA Start: 08-29-2021 FDA Start: 08-29-2021 FDA Start: 08-29-2021 Mesh Bio-A Synth etic 10x7cm Surgical Reinforcement Hernia Repair - [id number]_[facility] Start: 05-07-2019 FDA Start: 08-29-2021 FDA Start: [...] Unknown 08/29/21 Unknown Unknown FDA Start: 08-29-2021 ([id number]) Metal-backed pat babita prosthesis ()[id number] FDA Start: 01-23-2023 ([id number]) Coated knee femu r prosthesis ()[id number] FDA Start: 01-23-2023 ([id number]) Coated knee tibi a prosthesis ()[id number] FDA Start: 01-23-2023 ([id number]) Tibial insert ()[id number] FDA Start: 01-23-[address] Plastic 8f Chronoflex Catheter With Kit - [id number] Start: 10-30-2024 Goals Date Patient Goal Desired Activity /State Functional Status Date Assessment Result Facility 09-03-2024 Functional status Ambulates;Bath room Privilege [facility] Work Phone: 01-24-2023 Functional status Chair [facility] Work Phone: 10-02-2021 Functional [facility] 05-08-2019 Are you deaf, or do you have serious difficulty hearing No 05/08/2019 5:36 PM EDAnyi Kelly, LÓPEZ No [facility] 05-08-2019 Are you blind, or do you have serious difficulty seeing, even when wearing glasses No 05/08/2019 5:36 PM Anyi Herrera, LÓPEZ No [facility] 05-08-2019 Do you have serious difficulty walking or climbing stairs No 05/08/2019 5:36 PM RODRIGOT Anyi Del Toro, LÓPEZ No [facility] 05-08-2019 Do you have difficul ty dressing or bathing No 05/08/2019 5:36 PM EDAnyi Kelly, LÓPEZ No [facility] 05-08-2019 Because of a physica l, mental, or emotional condition, do you have difficulty doing errands alone such as visiting a physician's office or shopping No 05/08/2019 5:36 PM Anyi Herrera RN No [facility] Mental Status Date Assessment Result Facility 03-02-2025 Cognitive function Level Of Cons ciousness Sedated [facility] Work Phone: 03-02-2025 Cognitive function Voice/Name [facility] Work Phone: 12-27-2024 Cognitive function Level Of Cons ciousness Awake;Alert;Appropriate;Fol lows Commands [facility] Work Phone: 10-24-2024 Cognitive function Level Of Cons ciousness Awake;Alert;Appropriate;Fol lows Commands [facility] Work Phone: 10-02-2024 Cognitive function Awake;Alert;Appropriat e [facility] Work Phone: 09-03-2024 Cognitive function Voice/Name [facility] Work Phone: 09-03-2024 Cognitive function Cooperative;Anxious [facility] Work Phone: 07-25-2023 Cognitive function Awake;Alert;Appropriat e [facility] Work Phone: 01-24-2023 Cognitive function Level Of Cons ciousness Awake;Alert;Appropriate;Fol lows Commands [facility] Work Phone: 01-23-2023 Cognitive function Appropriate;Cooperativ e [facility] Work Phone: 01-23-2023 Cognitive function Voice/Name [facility] Work Phone: 11-06-2022 Cognitive function Voice/Name [facility] Work Phone: 11-06-2022 Cognitive function Patient Nia spencer Person;Place;Time [facility] Work Phone: 05-08-2019 Because of a physica l, mental, or emotional condition, do you have serious difficulty concentrating, remembering, or making decisions No 05/08/2019 5:36 PM EDT Anyi Del Toro RN No [facility] Clinical Notes 11-21-2020 to 03-19-2025 Telephone Encounter - Janie Rice - 03/19/2025 2:05 PM EDTTelephone Encounter - Janie Rice - 03/19/2025 2:05 PM EDTTelephone Encounter - Janie Rice - 03/19/2025 11:50 AM EDT Note Date & Type Note Facility 03-19-2025 Telephone encount er Note Spoke with patient and scheduled Janie Rice [facility] 03-19-2025 Miscellaneous Notes Formattin g of this note might be different from the original. Spoke with patient and scheduled Janie Rice AVS 03/19 Labs today.-DONE CBC/CMP CT C/A/P then OV in about 6 months.-Verifying with Dr. Sabrina Rice documented in this encounter [facility] 03-19-2025 Telephone encount er Note AVS 03/19 Labs today.-DONE CBC/CMP CT C/A/P then OV in about 6 months.-Verifying with Dr. Sabrina Rice [facility] 03-19-2025 Note [facility] 03-19-2025 History of Presen t illness [...] OV 07/15/2025: Presented to the ED at [facility] on 09/02/2024 with complaint of perianal [...] to be a perianal mass. It extended [facility] external to the anal verge and another [...] carcinoma in situ. See comment. COMMENT Immunohistochemistry ([id number]) for surrogate HPV marker (p16) will be [...] tablet by mouth two times a day. rebalywhlaZEJEC-ntmeqe-evjlafv ne (BMX 1:1:1) 1:1:1 liqd Take 10 [...] once daily. On hold for 10 days) hagsyu-ceyytltk-jtwlmjo (CREON 36) 36,000-114,000- 180,000 unit delayed release [...] Ischemic Heart Disease Father age 42 from [place] Hypertension Sister other (Other) Brother 18 MVA [...] which included preparing to see the patient, xuhx-ad-pdha patient care, completing clinical documentation, obtaining and/or reviewing separately obtained history, performing a medically appropriate examination, ordering medications, tests, or procedures, communicating with other HCPs (not separately reported), and communicating results to the patient/family/caregiver. 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 Hx Hospitalization Yes: AUG 2024, ANAL CANCER [...] of surgery protonix meclizine PONV 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 Female Yes 02/24/25 14:24 HX of Motion [...] 03/02/25 08:37 Respiratory Assessment 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: Respiratory Tract Infection Hx - 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 Hx Respiratory Tract Infection No 02/24/25 14:24 STOP Sleep Apnea STOP Sleep Apnea - 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: STOP Sleep Apnea - 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 Hx Hypertension Yes 02/24/25 14:24 Hx Sleep [...] Tobacco Use History 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 Tobacco Use Smoking Status Former smoker 02/27/25 17:52 Hx Tobacco Use No 02/24/25 14:24 Years Smoking Packs Smoked per Day Smoking Cessation Date was Yes - quit smoking within 15 02/24/25 14:24 within the last 15 years years Hx Smoking Cessation Date 12/27/13 02/27/25 17:52 Hx Smoking Cessation No 02/27/25 17:52 Counseling Hematologic Medial History 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 Specify any problems Hx of Preganancy in last 3 No 02/24/25 14:24 Months Nurse Filling Out Transfusion EHEARLY 02/24/25 14:24 & Questions: Date: 02/24/25 02/24/25 14:24 Time: 14:37 02/24/25 14:24 Patient unable to answer at this time (ie. 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: /Reproductive Hx- 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 Hx Now No 02/24/25 14:24 Gestational Age [...] MENTAL HEALTH 0 12/13/15 09/01/24 History peg 662-lgwtfufpelku-upnhtenq 1 1 drp OP 4X/DAY DRY EY [...] MD Cosigner Signature: Date CC: ~ Signed [facility] Work Phone: 1(860) 990-484708-05-2025 Consult note [facility] Medical Records Department [address] [place] [address] Anesthesia Postop Eval I 03/02/25 1045 MR#: [id number] Acct: [id number] Name: MARIMAR WANG Rep #:[id number] : 1960 64 From: Quang NATHAN PCP: Jluio Arriaga NP-Marga Status:REG S DC Y Race: C Location: [place] [address] Anesthesia: Postop Eval I Current Vital Signs Temperature: 97 F Pulse Rate: 78 Blood Pressure: 107/64 Respiratory Rate: 16 Pulse Ox: 96 Assessment Airway patent: Yes Spontaneous unlabored respirations: Yes nausea: No Vomiting: No Anesthesia Complication: No Fluid Hydration Crystalloid volume administer (ml): 300 Total IV fluid infused: 300 Progress Note Anesthesia document: Postop Eval 1 completed: Yes 03/02/25 1045 EBD TEACHER> Date _ Quang Xiao EBD TEACHER Cosigner Signature: Date CC: ~ Signed [facility]08-05-2025 Procedure note [facility] Medical Records Department [address] [place] [address] Flex Sigmoidoscopy Report MR#: [id number] Acct: [id number] Name: MARIMAR WANG Rep #:[id number] : 1960 64 From: Kenya Garcia [...] normal. Biopsied. Procedure Code(s): --- Professional --- 31679, 52, Sigmoidoscopy, flexible; with biopsy, single or multiple Diagnosis Code(s): --- Professional --- Z85.048, Personal history of other malignant neoplasm of rectum, rectosigmoid junction, and anus CPT copyright 2021 [employer]. All rights reserved. The codes documented in this report are preliminary and upon optical worker review may be revised to meet current compliance requirements. Kenya Garcia MD 03/02/2025 10:43:59 AM This report has been signed electronically. Number of Addenda: 0 Note Initiated On: 03/02/2025 10:02 AM 03/02/25 1044 Date _ Kenya Garcia MD Cosigner Signature: Date (if indicated) CC: SINAI Arriaga; Dr. Kenya Garcia MD ~ Date Dictated: 03/02/25 1002 Date Transcribed: Pre Owned Sales Manager: SHILPA Signed [facility]08-05-2025 Procedure note [facility] Medical Records Department [address] [place] [address] Provation Physician Letter MR#: [id number] Acct: [id number] Name: MARIMAR WANG Rep #:[id number] : 1960 64 From: Kenya Garcia [...] ~ Date Dictated: 03/02/25 1002 Date Transcribed: Pre Owned Sales Manager: SHILPA Signed [facility]08-05-2025 History and physical note [facility] Medical Records Department [address] [facility] [place] [address] History & Physical Exam 03/02/25 1008 MR#: [id number] Acct: [id number] Name: MARIMAR WANG Rep #:[id number] : 1960 64 From: Kenya Garcia MD PCP: Julio Arriaga, [employer] Status:REG S DC Location: [address] HPI - General General Date of [...] is to biopsy for any residual disease [facility] Medical History Cancer Walker [...] MENTAL HEALTH 0 12/13/15 09/01/24 History peg 088-lkxoaixdeiev-trelqzqz 1 1 drp OP 4X/DAY DRY EY [...] SINAI Arriaga; Dr. Kenya Garcia MD~ Signed [facility]08-05-2025 [facility] Medical Records Department [address] [place] [address] History Physical Exam 03/02/25 1008 MR#: [id number] Acct: [id number] Name: MARIMAR WANG Rep #: [id number] : 1960 64 From: Kenya Garcia MD PCP: SINAI Arriola Status:[facility] Location: [place] [address] HPI - General General Date of Admission: [...] is to biopsy for any residual disease [facility] Medical History Cancer Walker [...] [facility] MENTAL HEALTH 6 09/01/24 History peg 794-njbrcmxsnxaq-rmksyghp 1 1 drp OP 4X/DAY DRY EYES [...] 10/24/24 Unknown H istory a dose pack (Aks[facility] Wellness DVT-PE Treat 30D Start) cholecalciferol (vitamin D3) [...] Unknown Rx TABLETS Allergy (more content not included)...[facility]08-05-2025 Consult note [facility] Medical Records Department [address] [place] [address] Pre-Anesthesia Evaluation 03/02/25916 MR#: [id number] Acct: [id number] Name: MARIMAR WANG Rep #:[id number] : 1960 64 From: Nikita Roberson PCP: Julio Arriaga NP-C Status:REG S DC Y Race: C Location: [place] [address] ASA Classification* ASA Classification ASA Classification: 2 [...] FLEX SIGMOIDOSCOPY Anesthesia History 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 Hx Hospitalization Yes: AUG 2024, ANAL CANCER [...] of surgery protonix meclizine PONV 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 Female Yes 02/24/25 14:24 HX of Motion [...] 03/02/25 08:37 Respiratory Assessment 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: Respiratory Tract Infection Hx - 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 Hx Respiratory Tract Infection No 02/24/25 14:24 STOP Sleep Apnea STOP Sleep Apnea - 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: STOP Sleep Apnea - 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 Hx Hypertension Yes 02/24/25 14:24 Hx Sleep [...] Tobacco Use History 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 Tobacco Use Smoking Status Former smoker 02/27/25 17:52 Hx Tobacco Use No 02/24/25 14:24 Years Smoking Packs Smoked per Day Smoking Cessation Date was Yes - quit smoking within 15 02/24/25 14:24 within the last 15 years years Hx Smoking Cessation Date 12/27/13 02/27/25 17:52 Hx Smoking Cessation No 02/27/25 17:52 Counseling Hematologic Medial History 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 Specify any problems Hx of Preganancy in last 3 No 02/24/25 14:24 Months Nurse Filling Out Transfusion EHEARLY 02/24/25 14:24 & Questions: Date: 02/24/25 02/24/25 14:24 Time: 14:37 02/24/25 14:24 Patient unable to answer at this time (ie. 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: /Reproductive Hx- 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 Hx Now No 02/24/25 14:24 Gestational Age [...] MENTAL HEALTH 0 12/13/15 09/01/24 History peg 340-kngmiieisoul-gcpcgsgb 1 1 drp OP 4X/DAY DRY EY [...] MD Cosigner Signature: Date CC: ~ Signed [facility]08-02-2025 Discharge summary [facility] Medical Records Department [address] [place] [address] Emergency Department Summary 02/27/25 MR#: [id number] Acct: [id number] Name: MARIMAR WANG Rep #:[id number] : 1960 64 From: Pawel Cason [...] MENTAL HEALTH 0 12/13/15 09/01/24 History peg 586-bbhmrjntdehw-fomunqbn 1 1 drp OP 4X/DAY DRY EY [...] Q12H 10/24 Unknown History a dose pack (Akshay Wellness DVT-PE Treat 30D Start) cholecalciferol (vitamin D3) [...] left sacral buttocks pain. She was prescribed [place] at that time.) Treatment and Re-Evaluation :: [...] Julio Arriaga NP Referrals: Julio Arriaga NP, [employer] [Primary Care Provider] - 3-5 Days if not improving Activity Restrictions/Additional Instructions: 1. Stop taking the tramadol while you are on Percocet. 2. If you develop fever or chills or pain is unbearable follow-up with your doctor or return to theemergency department Print Language: Swedish Disposition Disposition: Home, Self Care What to do if you have Problems For any increased pain, shortness of breath, bleeding, nausea or vomiting, chestpain, or any unexpected problems, contact your Primary Care Provider. Call [facility] ([phone]) or report tothe closest Emergency Room. Call 911 if necessary. 02/27/251939 Cosigner Signature (if applicable): CC: STEFANOC Julio Arriaga ~ Signed [facility]08-02-2025 Discharge summary Author Pawel Cason [facility] Note Date/Time February 27, 2025 7:4 0pm [facility] Medical Records Department [address] [place] [address] Emergency Department Summary 02/27/25 MR#: [id number] Acct: [id number] Name: MARIMAR WANG Rep #:[id number] : 1960 64 From: Pawel Cason [...] MENTAL HEALTH 0 12/13/15 09/01/24 History peg 374-tfwmsrukcikd-bzmbzjrx 1 1 drp OP 4X/DAY DRY EY [...] left sacral buttocks pain. She was prescribed [place] at that time.) Treatment and Re-Evaluation :: [...] Julio Arriaga NP Referrals: Julio Arriaga NP, [employer] [Primary Care Provider] - 3-5 Days if not improving Activity Restrictions/Additional Instructions: 1. Stop taking the tramadol while you are on Percocet. 2. If you develop fever or chills or pain is unbearable follow-up with your doctor or return to the emergency department Print Language: Swedish Disposition Disposition: Home, Self Care What to do if you have Problems For any increased pain, shortness of breath, bleeding, nausea or vomiting, chestpain, or any unexpected problems, contact your Primary Care Provider. Call [facility] ([phone]) or report to the closest Emergency Room. Call 911 if necessary. 02/27/251939 <Electronically signed by Pawel Cason MD> Cosigner Signature (if applicable): CC: SINAI Arriaga ~ Signed [facility] Work Phone: 1(796) 830-980607-23-2025 Telephone encounter Note* Telephone Encounter - Lawanda Rutherford RN - 02/17/2025 2:17 PM EDT Nurse spoke to pt and requested she come in sooner if possible. Pt stated she will be here around 1. [facility]07-23-2025 Miscellaneous Notes* Telephone Encounter - Lawanda Rutherford [...] 2:00 pm. Thank you. documented in this encounterCrystal [facility]07-23-2025 Telephone encounter Note * Telephone Encounter - Yvette Cheng - 02/17/2025 11:26 AM EDT This has been scheduled as directed. Yvette Cheng [facility]07-23-2025 Telephone encounter Note* Telephone Encounter - Latoya Cary RN - 02/17/2025 10:55 AM EDT PSS - per patient, please reschedule today's treatment to 02/18 at 2:00 pm. Thank you. [facility]07-21-2025 Telephone encounter Note* Telephone Encounter - Nikkie Walter LPN - 02/15/2025 1:41 PM EDT Patient is aware. Nikkie Walter LPN [facility]07-21-2025 Miscellaneous Notes* Telephone Encounter - Nikkie Walter [...] Hep B Please advise documented in this encounterCrystal Clinic [facility]07-21-2025 Telephone encounter Note * Telephone Encounter - Delvin Ron APRN.CNP - 02/15/2025 1:32 PM EDT Yes, follow up with PCP. Delvin Ron APRN.CNP [facility]07-21-2025 Telephone encounter Note* Telephone Encounter - Carlos Alberto LuJordyn - 02/15/2025 1:13 PM EDT Patient called asking if she could have the following vaccinations: pneumonia RSV shingles flu Hep B Please advise [facility] Work Phone: 1(132) 134-829607-15-2025 Telephone encounter Note* Telephone Encounter - Yvette Cheng - 02/09/2025 2:27 PM EDT Spoke w pt and she has bx at [facility] on 03/02, next available w Dr Bennett for follow up is 03/19, which I scheduled. Yvette Cheng [facility]07-15-2025 Miscellaneous Notes* Telephone Encounter - Yvette Cheng - 02/09/2025 2:27 PM EDT Spoke w pt and she has bx at [facility] on 03/02, next available w Dr [...] you. Delvin Ron APRN.CNP documented in this encounterCrystal Clinic [facility]07-15-2025 Telephone encounter Note * Telephone Encounter - Delvin Ron APRN.CNP - 02/09/2025 1:03 PM EDT Please see phone note on 12/02/24. Pt. needs follow up per the phone note-nothing is scheduled. She needs to see her surgeon as well-pt. was going to schedule. Thank you. Delvin Ron APRN.FOLDER TIER [facility]07-15-2025 [facility] [address] [place] [address]. [address] [place] [address] OFFICE VISIT Date of Service: 02/09/25 MR#: [id number] Acct: [id number] Name: MARIMAR WANG Rep #: [id number] : 1960 Provider: Dr. Swapnil Garcia MD Age/Sex: 64/F Location: [facility] Status: Signed Intake Vital Signs 10/30/24 00:58 [...] MENTAL HEALTH 0 12/13/15 02/09/25 History peg 669-kjdwukrkkyei-chpucpcs 1 1 drp OP 4X/DAY DRY EY [...] Date (if applicable) CC: SINAI Arriaga ~ [facility]07-15-2025 Progress note Author Kenya Garcia [facility] Note Date/Time February 09, 2025 10:0 2am [facility] [address] [place] [address] OFFICE VISIT Date of Service: 02/09/25 MR#: [id number] Acct: [id number] Name: MARIMAR WANG Rep #: [id number] : 1960 Provider: Dr. Swapnil Garcia MD Age/Sex: 64/F Location: [facility] Status: Signed Intake Vital Signs 10/30/24 00:58 [...] MENTAL HEALTH 0 12/13/15 02/09/25 History peg 473-zsbrmdirjitg-rnmqeeoc 1 1 drp OP 4X/DAY DRY EY [...] MD Cosigner Signature: Date (if applicable) CC: [employer] PRINTERMadayC Julio Arriaga ~ [facility] [employer] Work Phone: 1(967) 242-632807-09-2025 Telephone encounter Note* Telephone Encounter - Rosio [...] Visit date not found Patient Phone numbers: [phone] (home) Request is for script(s) to be escript to pharmacy. [facility] [place] [id number] - [address] - [phone] Rosio Buck LPN [facility]07-09-2025 Miscellaneous Notes* Telephone Encounter - Rosio Buck [...] Visit date not found Patient Phone numbers: [phone] (home) Request is for script(s) to be escript to pharmacy. 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 Aromatherapy Administered: No PERIPHERAL IV DATA: Site assessment: Clean,Dry and Intact, Site disposition Left in for next appointment SIGNED BY: Jackie Fan, RT(R) February 01, 2025 10:31 AM documented in this encounterCrystal [facility]07-07-20[facility] note* Diagnosis Onset Date Resolution Status Admit Date Crohn disease acute January 14, 2025 8:19am Irritable bowel syndrome wit h diarrhea acute January 14, 2025 8:19am [facility] [employer] Work Phone: 1(987) 198-825606-19-2025 Evaluation note* Diagnosis Onset Date Resolution Status Admit Date Crohn disease acute January 14, 2025 8:19am Irritable bowel syndrome wit h diarrhea acute January 14, 2025 8:19am Diarrhea chronic February 02, 2025 10:53am 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 acute February 09, 2025 9:32am [place] [employer] Work Phone: 1(804) 490-623906-19-2025 Evaluation note* Diagnosis Onset Date Resolution Status Admit Date Crohn disease acute January 14, 2025 8:19am Irritable bowel syndrome wit h diarrhea acute January 14, 2025 8:19am Diarrhea chronic February 02, 2025 10:53am 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 [facility] [place] [id number] - [address] [facility] 100 - [phone] Rosio Buck LPN [facility]06-18-2025 Miscellaneous Notes* Telephone Encounter - Rosio Buck [...] Visit date not found Patient Phone numbers: [phone] (home) Request is for script(s) to be escript to pharmacy. [facility] [place] [id number] - [address] [facility] 100 - [phone] Rosio Buck LPN documented in this encounterCrystal Clinic [facility]06-10-2025 Telephone encounter Note * Telephone Encounter - Lynn New LPN - 01/05/2025 1:50 PM EDT Pt. Notified she can stop the potassium. Pt. Voiced understanding. Lynn eNw LPN [facility]06-10-2025 Miscellaneous Notes* Telephone Encounter - Lynn New [...] time. Kathya Rich LPN documented in this encounterCrystal Clinic [facility]06-10-2025 Telephone encounter Note * Telephone Encounter - Josh Bennett DO - 01/05/2025 1:25 PM EDT She can stop potassium. Josh Bennett DO [facility]06-10-2025 Telephone encounter Note* Telephone Encounter - Kathya Rich LPN - 01/05/2025 11:33 AM EDT Refill req from [facility]. Asking for them both to be filled so pt can refill at the same time. Kathya Rich LPN [facility]06-01-2025 Radiology Diagnostic study note [facility] Imaging Services [address] [place] [address] Pelvis without IV Contrast MR#: [id number] Acct: [id number] Name: MARIMAR WANG Rep #: [id number] : 1960 F 64 From: Huey Mendoza MD PCP: SINAI Arriola Status: REG E R Study:Pelvis without IV Contrast Date of Exam : 12/27/24 Exam# [id number] Ordering Dr: Ekaterina Croft PROCEDURE: PELVIS WITHOUT [...] Contrast IMPRESSION: No acute abnormalities. Reading Location: [id number] CC: [employer] Julio Arriaga; [place] Ar[place] ~ Pre Owned Sales Manager: Signed [facility]05-16-2025 Telephone encounter Note* Telephone Encounter - Janie Rice - 12/11/2024 2:51 PM EDT Patient called and rescheduled appointment Janie Rice [facility]05-16-2025 Miscellaneous Notes* Telephone Encounter - Janie Rice - 12/11/2024 2:51 PM EDT Patient called and rescheduled appointment Janie Rice * Telephone Encounter - Janie Rice - 12/11/2024 8:45 AM EDT Cancelled 12/11 treatment per secure chat and needs rescheduled in December. 2ND YR RECLAST/QMO ORENCIA/(PORT)ORDERING PROV DR ARIAS* Janie Rice documented in this encounterCrystal Clinic [facility] Center05-16-2025 Telephone encounter Note * Telephone Encounter - Janie Rice - 12/11/2024 8:45 AM EDT Cancelled 12/11 treatment per secure chat and needs rescheduled in December. YR RECLAST/QMO ORENCIA/(PORT)ORDERING PROV DR ARIAS* Janie Rice [facility]05-15-2025 Telephone encounter Note* Telephone Encounter - Candace Alvarenga MA - 12/10/2024 11:28 AM EDT Pharmacy faxed requesting the following refill. Requested Prescriptions Pending Prescriptions Disp Refills leflunomide (ARAVA) 20 mg tablet [Pharmacy Med Name: LEFLUNOMIDE 20MG TAB] 90 tablet 0 Sig: Take 1 tablet by mouth once daily Patient last appointment: 11/30/24 Next Appointment: Visit date not found Patient Phone numbers: [phone] (home) Request is for script(s) to be escript to pharmacy. Candace Alvarenga MA [facility]05-15-2025 Miscellaneous Notes* Telephone Encounter - Candace Alvarenga MA - 12/10/2024 11:28 AM EDT Pharmacy faxed requesting the following refill. Requested Prescriptions Pending Prescriptions Disp Refills leflunomide (ARAVA) 20 mg tablet [Pharmacy Med Name: LEFLUNOMIDE 20MG TAB] 90 tablet 0 Sig: Take 1 tablet by mouth once daily Patient last appointment: 11/30/24 Next Appointment: Visit date not found Patient Phone numbers: [phone] (home) Request is for script(s) to be escript to pharmacy. Candace Alvarenga MA documented in this encounterC[facility]05-15-2025 Telephone encounter Note * Telephone Encounter - Roxanne Bland RN - 12/10/2024 11:10 AM EDT Addressed in a separate phone encounter. Roxanne Bland RN [facility]05-15-2025 Miscellaneous Notes* Telephone Encounter - Roxanne Bland RN - 12/10/2024 11:10 AM EDT Addressed in a separate phone encounter. Roxanne Bland RN * Telephone Encounter - Delvin Ron APRN.CNP - 11/30/2024 3:12 PM EDT Will do after I talk with Dr. Bennett. Delvin Ron APRN.CNP * Telephone Encounter - Jordyn Fernandez - 11/30/2024 2:39 PM EDT Please advise of follow ups, etc from 11/30 office visit documented in this encounterCrystal Clinic [facility]05-12-2025 [facility]Ke[facility] History of Present illness Narrative* Sidney [...] minutes Sidney Joya MD documented in this encounterCrystal [facility]05-09-2025 Telephone encounter Note * Telephone Encounter - Rosio Buck LPN - 12/04/2024 3:48 PM EDT Patient notified and verbalized understanding. Patient asking if she can have her Orencia infusion on 12/10/2024 when she gets her Reclast infusion. Rosio Buck LPN [facility]05-09-2025 Miscellaneous Notes* Telephone Encounter - Rosio Buck [...] low dose pred course. documented in this encounterCrystal Clinic [facility] Center05-09-2025 Telephone encounter Note * Telephone Encounter - Rosio Buck LPN - 12/04/2024 3:45 PM EDT Images from the original note were not included. Message Received: 3 days ago Jennifer Arias MD Russell, Tina, LPN Let patient know that we will be resuming orencia in a few weeks and I am sending low dose pred course. [facility]05-05-2025 Telephone encounter Note* Telephone Encounter - Delvin Ron APRN.CNP - 11/30/2024 3:12 PM EDT Will do after I talk with Dr. Bennett. Delvin Ron APRN.CNP [facility]05-05-2025 Telephone encounter Note* Telephone Encounter - Jordyn Fernandez - 11/30/2024 2:39 PM EDT Please advise of follow ups, etc from 11/30 office visit [facility] Work Phone: 1(933) 880-259505-05-2025 Telephone encounter Note* Telephone Encounter - Kelly Cooley MA - 11/30/2024 2:02 PM EDT I called and left a message to get patient set up for a reclast infusion ordered by Dr. Arias. Kelly Cooley MA [facility]05-05-2025 Miscellaneous Notes* Telephone Encounter - Kelly Cooley MA - 11/30/2024 2:02 PM EDT I called and left a message to get patient set up for a reclast infusion ordered by Dr. Arias. Kelly Cooley MA documented in this encounterCrystal Clinic [facility]05-05-2025 NoteHNO ID: [id number] Author: JENNIFER ARIAS MD Service: ? Author Type: Physician Type: Progress Notes Filed: 11/30/2024 12:48 Note Text: RHEUMATOLOGY PROGRESS NOTE VIRTUAL VISIT PROGRESS NOTE This is a virtual visit using HIPAA compliant video platform. It required patient-provider interaction for the medical decision making as documented below using [employer]t. I have communicated my name and active licensure. The patient?s identity and physical location were verified at the time of this visit. Either the patient or their legal insurance healthcare representative has been informed of the risks [...] replaced 01/23/2023. Doing well. Dr. Odalis Cooney [facility] No longer seeing pain mgmt- not [...] 01/30/2019 Carotid artery stenosis bilateral- [facility] COPD (chronic obstructive pulmonary disease) (HCC) [...] Ischemic Heart Disease Father age 42 from [place] Hypertension Sister other (Other) Brother 18 MVA Angioedema Maternal Grandmother other (CHF) Maternal Grandfather Hypertension Paternal Grandmother Stroke Paternal Grandfather Depression Daughter other (PTSD) Daughter other (Anxiety) Daughter other (svt) Daughter Diabetes Daughter Social History Tobacco Use Smoking status: Former Current packs/day: 0.00 Average packs/day: 1 pack/day for 31.0 years (31.0 ttl pk-yrs) Types (more content not included)...[facility]05-05-2025 History of Present illness Narrative* Jennifer Arias MD - 11/30/2024 12:11 PM EDT Images from the original note were not included. RHEUMATOLOGY PROGRESS NOTE VIRTUAL VISIT PROGRESS NOTE This is a virtual visit using HIPAA compliant video platform. It required patient-provider interaction for the medical decision making as documented below using [employer]t. I have communicated my name and active licensure. The patient s identity and physical location wereverified at the time of this visit. Either the patient or their legal insurance healthcare representative has been informed of the risks [...] replaced 01/23/2023. Doing well. Dr. Odalis Cooney [facility] No longer seeing pain mgmt- not [...] 01/30/2019 Carotid artery stenosis bilateral- [facility] COPD (chronic obstructive pulmonary disease) (HCC) [...] Ischemic Heart Disease Father age 42 from [place] Hypertension Sister other (Other) Brother 18 MVA [...] tablet by mouth two times a day. gzpinkegyrSPIYA-mixnzi-dkumvsyot (BMX 1:1:1) 1:1:1 liqd Take 10 mL [...] Take 80 mg by mouth once daily. ynstwd-uasodctr-pyqhjzy (CREON 36) 36,000-114,000- 180,000 unit delayed release [...] which included preparing to see the patient, qxys-wh-ztwv patient care, completing clinical documentation, obtaining and/or reviewing separately obtained history, performing a medically appropriate examination, counseling and educating the pat ient/family/caregiver, ordering medications, tests, or procedures, independently interpreting results (not separately reported), communicating results to the patient/family/caregiver, and care coordination (not separately reported). documented in this encounterCrystal Clinic [facility]05-05-2025 [facility]Ke[facility] History of Present illness Narrative* Delvin Ron APRN.FOLDER TIER - 11/30/2024 10:35 AM EDT Chief Complaint [...] OV 07/15/2025: Presented to the ED at [facility] on 09/02/2024 with complaint of perianal [...] to be a perianal mass. It extended [facility] external to the anal verge and another [...] carcinoma in situ. See comment. COMMENT Immunohistochemistry ([id number]) for surrogate HPV marker (p16) will be [...] k/uL 0.15 (L) 0.21 (L) 0.24 (L) [place]% % 15.5 16.2 13.1 Abs [place] <0.87 k/uL 0.72 0.62 0.63 Eosin% % [...] as necessary for today's visit. Delvin Ron APRN.FOLDER TIER documented in this encounterCrystal Clinic Orthopedic Center05-01-2025 Telephone encounter Note * Telephone Encounter - Nikkie Walter LPN - 11/26/2024 10:43 AM EDT Patient completed starter pack of Eliquis. Please send refill. Nikkie Walter LPN [facility]05-01-2025 Miscellaneous Notes* Telephone Encounter - Nikkie Walter LPN - 11/26/2024 10:43 AM EDT Patient completed starter pack of Eliquis. Please send refill. Nikkie Walter LPN documented in this encounterCrystal Clinic Orthopedic Center04-23-2025 Telephone encounter Note * Telephone Encounter - Nikkie Walter LPN - 11/18/2024 12:30 PM EDT Compazine was sent in 11/17/2024 @ 0712 to [place]. Nikkie Walter LPN [facility]04-23-2025 Miscellaneous Notes* Telephone Encounter - Nikkie Walter LPN - 11/18/2024 12:30 PM EDT Compazine was sent in 11/17/2024 @ 0712 to [place]. Nikkie Walter LPN documented in this encounterCrystal Clinic Orthopedic Center04-21-2025 [facility]Keenan [facility]04-21-2025 History of Present illness Narrative* Elisabeth [...] patient education: 10 minutes. documented in this encounterCrystal Clinic Orthopedic Center04-21-2025 Telephone encounter Note * Telephone Encounter - [...] New LPN November 16, 2024 7:55 AM [facility]04-21-2025 Miscellaneous Notes* Telephone Encounter - Lynn New [...] 16, 2024 7:55 AM documented in this encounterCrystal Clinic Orthopedic Center04-21-2025 [facility]Keen[facility]04-15-2025 NoteKeen[facility]04-15-2025 History of Present illness Narrative* Kari Harrington RN - 11/10/2024 9:42 AM EDT Radiation Therapy - Nursing Note (OTV) PATIENT NAME: Marimar Wang PATIENT November 10, 2024 [facility]LOCATION: [place] NURSING NOTE TYPE: RECTAL Subjective Data see pain assessment Additional Data Do you want to see a Dog Boarder? No, strongly encouraged but does not want to Status: Post-menopausal. Stress Scale: On a scale of 0 to 10, what number best describes how much distress you have experienced in the past week?(0 being no distress and 10 being extreme distress) 4 Social work notified: Pt denied need to see drug abuse social worker at this time. Nursing Assessment [...] expeirencing is from [facility] since fall a few weeks ago SIGNED [...] planned. Sidney Joya MD documented in this encounterCrystal Clinic Orthopedic Center04-15-2025 [facility]Keen[facility]04-14-2025 NoteKe[facility]04-14-2025 History of Present illness Narrative* Delvin [...] OV 07/15/2025: Presented to the ED at [facility] on 09/02/2024 with complaint of perianal [...] to be a perianal mass. It extended [facility] external to the anal verge and another [...] carcinoma in situ. See comment. COMMENT Immunohistochemistry ([id number]) for surrogate HPV marker (p16) will be [...] k/uL 0.36 (L) 0.31 (L) 0.17 (L) [place]% % 13.6 11.7 9.6 Abs [place] <0.87 k/uL 0.32 0.47 0.25 Eosin% % [...] as necessary for today's visit. Delvin Ron APRN.FOLDER TIER documented in this encounterCrystal Clinic Orthopedic Center04-14-2025 [facility]04-14-2025 History of Present illness Narrative* Latoya Cary RN - 11/09/2024 7:25 AM EDT Patient is here for IVAD port flush/blood draw per Nursing [facility] protocol. IVAD is located in right upper [...] Patient tolerated procedure well. documented in this encounterCrystal Clinic Orthopedic Center04-11-2025 NoteHNO ID: [id number] Author: BETSEY GUIDO RN Service: ? Author Type: Registered Nurse Type: Progress Notes Filed: 11/06/2024 09:56 Note Text: Denies any pain or discomfort at this time. States had occasional nausea during treamtentCSelect [facility]04-11-2025 History of Present illness Narrative* Betsey Guido RN - 11/06/2024 9:56 AM EDT Denies any pain or discomfort at this time. States had occasional nausea during treamtent documented in this encounterCrystal Clinic Orthopedic Center04-10-2025 Telephone encounter Note * Telephone Encounter - [...] the rolator prescription we had sent to [facility] is going to cost her $59/month. Pt is inquiring if there is a different provider that would possible be cheaper. Pt asking if [facility] is an option. SW to call [facility] [...] in Care Team tab: Yes LYLE Massey-Malena [facility]04-10-2025 Miscellaneous Notes* Telephone Encounter - Raul Hendrix LISW - 11/05/2024 9:51 AM EDT SOCIAL WORK FOLLOW UP NOTE: [facility] Date of service: November 05, 2024 Marimar Wang is being seen for a follow up social work visit. Today's visit includes: patient TOPICS ADDRESSED: SW met with pt this date regarding financial concerns. Pt reports the rolator prescription we had sent to [facility] is going to cost her $59/month. Pt is inquiring if there is a different provider that would possible be cheaper. Pt asking if [facility] is an option. SW to call [facility] and obtain quote if possible. Pt also reported concern there her clinic bill is probably really big by now. Pt alluded to overall financial hardship. SW discussed with pt the [facility] katelyn and provided pt [...] tab: Yes LYLE Massey-Malena documented in this encounterCrystal Clinic Orthopedic Center2025 NoteKeenan Private Hospital2025 History of Present illness Narrative* Kari Harrington, RN - 11/03/2024 9:40 AM EDT Radiation Therapy - Nursing Note (OTV) PATIENT NAME: Marimar Wang PATIENT November 03, 2024 [facility]ATION: [place] NURSING NOTE TYPE: RECTAL Subjective Data see pain assessment, using silvadene and aquaphor Additional Data Do you want to see a Dog Boarder? No Status: Post-menopausal. Stress Scale: On a scale of 0 to 10, what number best describes how much distress you have experienced in the past week?(0 being no distress and 10 being extreme distress) 4 Social work notified: Pt denied need to see drug abuse social worker at this time. Nursing Assessment [...] planned. Sidney Joya MD documented in this encounterCrystal Clinic Orthopedic Center2025 NoteKeenan Private Hospital04-07-2025 NoteKeenan [facility] Hospital04-07-2025 History of Present illness Narrative* Estefania Shine RN - 11/02/2024 11:02 AM EDT Patient arrives after radiation treatment with walker. States that she tripped and fell Saturday night using the bedside commode. She lives with her daughter and they went to the [facility] ER where she was evaluated. Report received and states scan of head and hips showed no bleed or fracture respectively.Pt states that she is bruised on my bottom and goes to right hip Taking percocet for the pain that was Rx from [facility] and controlling pain. Port was placed Saturday afternoon and is ecchymotic. Pt has been applying ice that is relieving mostof the pain. Port is working with a good blood return. Dr Bennett updated on the above and no additional orders received. States to proceed with treatment. Rx sent for Emla cream for port. Estefania Shine RN documented in this encounterCrystal Clinic Orthopedic Center04-04-2025 NoteKeenan [facility] Hospital04-04-2025 History of Present illness Narrative* Josh [...] OV 07/15/2025: Presented to the ED at [facility] on 09/02/2024 with complaint of perianal [...] to be a perianal mass. It extended [facility] external to the anal verge and another [...] carcinoma in situ. See comment. COMMENT Immunohistochemistry ([id number]) for surrogate HPV marker (p16) will be [...] 01/30/2019 Carotid artery stenosis bilateral- [facility] COPD (chronic obstructive pulmonary disease) (HCC) [...] by mouth every 6 hours as needed. fwgjvxswuhWFOMT-rgeaui-dznfqlkck (BMX 1:1:1) 1:1:1 liqd Take 10 mL [...] Take 80 mg by mouth once daily. bxehsw-gukmkemw-ibekfaa (CREON 36) 36,000-114,000- 180,000 unit delayed release [...] Ischemic Heart Disease Father age 42 from [place] Hypertension Sister other (Other) Brother 18 MVA [...] necessary. Josh Bennett DO documented in this encounterCrystal Clinic Orthopedic Center04-04-2025 Radiology Diagnostic study note [facility] Imaging Services [address] [place] [address] HIP, UNI W/ Pelvis 2-3 Views MR#: [id number] Acct: [id number] Name: MARIMAR WANG Rep #: [id number] 6 : 1960 F 64 From: Jonel Mariee MD PCP: [facility] Arriola Status: REG E R Study:HIP, UNI W/ Pelvis 2-3 Views Date of Ex am: 10/30/24 Exam# [id number] Ordering Dr: Aleyda Ambriz DO PROCEDURE: HIP, [...] lower left sacroiliac joint noted. Reading Location: [facility] CC: [employer] Julio Arriaga; Gaudencio Ambriz DO ~ Pre Owned Sales Manager: Signed [facility]04-04-2025 Radiology Diagnostic study note [facility] Imaging Services [address] [place] [address] [id number] Brain/Head without Contrast MR#: [id number] Acct: [id number] Name: MARIMAR WANG Rep #: [id number] 5 : 1960 F 64 From: Jonel Mariee MD PCP: [facility] Ar[facility] Status: REG E R Study:Brain/Head without Contrast Date of Exa m: 10/30/24 Exam# [id number] Ordering Dr: Aleyda Ambriz DO PROCEDURE: BRAIN/HEAD [...] mass effect or calvarial fracture. Reading Location: [id number] CC: [facility] Arriaga; Gaudencio Ambriz DO ~ Pre Owned Sales Manager: Signed [facility]04-02-2025 Telephone encounter Note* Telephone Encounter - Kari Harrington RN - 10/28/2024 1:58 PM EDT Pt was seen at [facility] ER over weekend and had a ash cath inserted due to c/o bladder pain and spasm. Dr Viraj Abreu (covering for DR Joya) was aware of this during OTV 10/27/24. Herurine from [facility] was negative. Her residual urine was 100ml.Dr [...] void or feels she is not emptying. [facility]04-02-2025 Miscellaneous Notes* Telephone Encounter - Kari Harrington RN - 10/28/2024 1:58 PM EDT Pt was seen at [facility] ER over weekend and had a ash cath inserted due to c/o bladder pain and spasm. Dr Viraj Abreu (covering for DR Joya) was aware of this during OTV 10/27/24. Herurine from [facility] was negative. Her residual urine was 100ml.Dr [...] she is not emptying. documented in this encounterCrystal Clinic Orthopedic Center04-01-2025 NoteKeenan [facility]04-01-2025 History of Present illness Narrative* Ricci Abreu MD - 10/27/2024 9:35 AM EDT Radiation Therapy - Nursing Note (OTV) PATIENT NAME: Marimar Wang PATIENT October 27, 2024 [facility]LOCATION: [place] NURSING NOTE TYPE: RECTAL Subjective Data bladder symptoms improving with ash and AZO use, states had 1200ml output in 12 hour period. Urine clear and discomfort resolved. Mouths sores from chemo have resolved so eating better, only one meal a day but snacking thru out day Additional Data Do you want to see a Dog Boarder? No Status: Post-menopausal. Stress Scale: On a scale of 0 to 10, what number best describes how much distress you have experienced in the past week?(0 being no distress and 10 being extreme distress) 1 Social work notified: Pt denied need to see drug abuse social worker at this time. Nursing Assessment [...] planned. Ricci Abreu MD documented in this encounterCrystal Clinic Orthopedic Center03-31-2025 Telephone encounter Note * Telephone Encounter - Nikkie Walter LPN - 10/26/2024 4:40 PM EDT Patient is scheduled for port placement on 10/30/2024. I will cancel PICC line at [facility]. Left message at [facility] IR to cancel PICC appointment. Patient is aware. Nikkie Walter LPN [facility]03-31-2025 Miscellaneous Notes* Telephone Encounter - Nikkie Walter LPN - 10/26/2024 4:40 PM EDT Patient is scheduled for port placement on 10/30/2024. I will cancel PICC line at [facility]. Left message at [facility] IR to cancel PICC appointment. Patient [...] to keep appointment for PICC placement at [facility] on 10/29/2024. Nikkie Walter LPN * [...] advise. Nikkie Walter LPN documented in this encounterCrystal Clinic Orthopedic Center03-31-2025 Telephone encounter Note * Telephone Encounter - Jessica Dias RN - 10/26/2024 4:07 PM EDT You are scheduled for a medi port placement, On 10/30/2024. You are to arrive at 1200 pm and [facility]: Radiology Outpatient Desk [id number] You can [...] Labs: Lab-work needs to be drawn? No.. Legal Adviser/Transportation: How will you be arriving for your procedure? Private car. You will need a responsible adult to accompany you to and from the procedure. Your bus driver is required to stay with you until you are taken into the procedure room. Call [phone] with questions [facility]03-31-2025 Miscellaneous Notes* Telephone Encounter - Jessica Dias RN - 10/26/2024 4:07 PM EDT You are scheduled for a medi port placement, On 10/30/2024. You are to arrive at 1200 pm and [facility]: Radiology Outpatient Desk [id number] You can [...] Labs: Lab-work needs to be drawn? No.. Legal Adviser/Transportation: How will you be arriving for your procedure? Private car. You will need a responsible adult to accompany you to and from the procedure. Your bus driver is required to stay with you until you are taken into the procedure room. Call [phone] with questions documented in this encounterCrystal Clinic Orthopedic Center03-31-2025 Telephone encounter Note * Telephone Encounter - Jessica Dias RN - 10/26/2024 2:00 PM EDT Unable to reach pt regarding pre procedure instructions. Call back number provided. [facility]03-31-2025 Miscellaneous Notes* Telephone Encounter - Jessica Dias RN - 10/26/2024 2:00 PM EDT Unable to reach pt regarding pre procedure instructions. Call back number provided. documented in this encounterCrystal Clinic Orthopedic Center03-31-2025 Telephone encounter Note * Telephone Encounter - Leilani Nayak - 10/26/2024 1:40 PM EDT Secure chat sent to see when the first available IR port placement can be done Leilani Valdez Pss [facility]03-31-2025 Telephone encounter Note* Telephone Encounter - Nikkie Walter LPN - 10/26/2024 1:00 PM EDT PSS- please contact patient MORAIMA to schedule IR port placement at first available site patient is willing to go to. If patient can't get port placed prior to 11/02/2024's treatment, she will still need to keep appointment for PICC placement at [facility] on 10/29/2024. Nikkie Walter LPN [facility]03-31-2025 Telephone encounter Note* Telephone Encounter - Josh Bennett DO - 10/26/2024 12:58 PM EDT Filed. Thank you. Josh Bennett DO [facility]03-31-2025 Telephone encounter Note* Telephone Encounter - Josh Bennett DO - 10/26/2024 12:50 PM EDT I have no problem ordering port placement for her if she is going to continue on her [place]ren[place]. However, I agree we may not have time to have one placed for her treatment next week. If not, then she will need a PICC line. Josh Bennett DO [facility]03-31-2025 Telephone encounter Note* Telephone Encounter - Nikkie [...] to 11/02/2024. Please advise. Nikkie Walter LPN [facility]03-31-2025 Telephone encounter Note* Telephone Encounter - Nikkie Walter LPN - 10/26/2024 10:39 AM EDT Patient went to [facility] ER for SOB and chest pain on 10/24/2024. Ash was placed and patient to followup with Dr. Scott. No need to have bladder scan. Dr. Bennett is aware and has reviewed the [facility] records (including new UAresults). Nikkie Walter LPN [facility]03-31-2025 Miscellaneous Notes* Telephone Encounter - Nikkie Walter LPN - 10/26/2024 10:39 AM EDT Patient went to [facility] ER for SOB and chest pain on 10/24/2024. Ash was placed and patient to followup with Dr. Scott. No need to have bladder scan. Dr. Bennett is aware and has reviewed the [facility] records (including new UAresults). Nikkie Walter LPN * Telephone Encounter - Roxanne Bland RN - 10/23/2024 10:14 AM EDT Nurse was unavailable to do bladder scan today. Patient scheduled at [facility] on 10/26. Dr. Bennett, please review [...] and is unable to travel outside of [place]. Patient is willing togo to [facility] if this is a possibility. Called [facility]. Faxed order to #[phone]. Patient notified. She will call [facility] to schedule. Roxanne Bland RN * [...] speak with Nikkie today. documented in this encounterCrystal Clinic Orthopedic Center03-31-2025 Telephone encounter Note * Telephone Encounter - Kari Harrington RN - 10/26/2024 10:29 AM EDT lona Oliveira [facility]03-31-2025 Miscellaneous Notes* Telephone Encounter - Kari Harrington RN - 10/26/2024 10:29 AM EDT lona Oliveira * Telephone Encounter - Kari Harrington RN - 10/26/2024 10:14 AM EDT Pt here for radiation treatment. She reports going to [facility] ER on 10/24/24. Shewent for shortness of [...] and [facility] We will re-assess tomorrow. documented in this encounterCrystal Clinic Orthopedic Center03-31-2025 Telephone encounter Note * Telephone Encounter - Kari Harrington RN - 10/26/2024 10:14 AM EDT Pt here for radiation treatment. She reports going to [facility] ER on 10/24/24. Shewent for shortness of [...] and [facility] We will re-assess tomorrow. [facility]03-29-2025 Radiology Diagnostic study note [facility] Imaging Services [address] [place] [address] CTA Chest W/WO Contrast MR#: [id number] Acct: [id number] Name: MARIMAR WANG Rep #: [id number] 5 : 1960 F 64 From: Holly Obrien MD PCP: [facility] Status: REG E R Study:CTA Chest W/WO Contrast Date of Exam: 10/24/24 Exam# [id number] Ordering Dr: Josh Disla [employer]Marga PROCEDURE: CTA CHEST W/WO CONTRAST 10/24/2024 REASON [...] in the upper lung zones. Reading Location: [facility] CC: [facility] Arriaga; [facility] Bates ~ Pre Owned Sales Manager: Signed [facility]03-29-2025 Radiology Diagnostic study note [facility] Imaging Services [address] [place], [place] [address] Abdomen/Pelvis W IV Cont ONLY MR#: [id number] Acct: [id number] Name: MARIMAR WANG Rep #: [id number] 4 : 1960 F 64 From: Holly Obrien MD PCP: [facility] Status: REG E R Study:Abdomen/Pelvis W IV Cont ONLY Date of E xam: 10/24/24 Exam# [id number] Ordering Dr: Josh Disla PROCEDURE: ABDOMEN/PELVIS W [...] ROSALIEJUAN CC: [facility] Arriaga; [facility] Bates ~ Pre Owned Sales Manager: Signed [facility]03-28-2025 Telephone encounter Note* Telephone Encounter - Roxanne Bland RN - 10/23/2024 10:14 AM EDT Nurse was unavailable to do bladder scan today. Patient scheduled at [facility] on 10/26. Dr. Bennett, please review UA results. Thank you. Roxanne Bland RN [facility]03-27-2025 Telephone encounter Note* Telephone Encounter - Roxanne [...] and XRT nurse informed. Roxanne Bland RN [facility]03-27-2025 Telephone encounter Note* Telephone Encounter - Roxanne Bland RN - 10/22/2024 2:46 PM EDT Spoke to patient. Patient stated [facility] will contact her to schedule US. Patient will update this nurse once the appointment has been scheduled. Roxanne Bland RN [facility]03-27-2025 Miscellaneous Notes* Telephone Encounter - Roxanne Bland RN - 10/22/2024 2:46 PM EDT Spoke to patient. Patient stated [facility] will contact her to schedule US. Patient will update this nurse once the appointment has been scheduled. Roxanne Bland RN documented in this encounterCrystal Clinic Orthopedic Center03-27-2025 Telephone encounter Note * Telephone Encounter - [...] and is unable to travel outside of [place]. Patient is willing togo to [facility] if this is a possibility. Called [facility]. Faxed order to #[phone]. Patient notified. She will call [facility] to schedule. Roxanne Bland RN [facility]03-27-2025 Telephone encounter Note* Telephone Encounter - Karly Carter LPN - 10/22/2024 9:47 AM EDT Urology is not in clinic until Sunday October 27, 2024. We can see if locations are available if sheis able to go to surrounding facility for appointment. [facility]03-27-2025 Telephone encounter Note* Telephone Encounter - Jordyn Fernandez - 10/22/2024 9:27 AM EDT This would be for today. - can we see if patient can get a post void residual US tomorrow in Urology? T [facility] Work Phone: 1(262) 708-238103-26-2025 Telephone encounter Note* Telephone Encounter - Roxanne [...] in Urology? Thank you. Roxanne Bland, LÓPEZ [facility]03-26-2025 Telephone encounter Note* Telephone Encounter - Nikkie [...] and this feels different. Nikkie Walter LPN [facility]03-26-2025 Telephone encounter Note* Telephone Encounter - Jordyn Fernandez - 10/21/2024 3:55 PM EDT Patient states she is having urgency and frequency and is unable to go all the way. She is asking to speak with Nikkie today. [facility]03-26-2025 Telephone encounter Note* Telephone Encounter - Nikkie Walter LPN - 10/21/2024 1:28 PM EDT Patient is scheduled for PICC line placement 10/29/2024 @ [facility] with a 10:30 arrival time. Patient isaware of appointment date and time. Nikkie Walter LPN [facility]03-26-2025 Miscellaneous Notes* Telephone Encounter - Nikkie Walter LPN - 10/21/2024 1:28 PM EDT Patient is scheduled for PICC line placement 10/29/2024 @ [facility] with a 10:30 arrival time. Patient isaware of appointment date and time. Nikkie Walter LPN * Telephone Encounter - Nikkie Walter LPN - 10/21/2024 12:19 PM EDT Patient is aware of all appointment dates and times. I will contact her with a time for the PICC line once [facility] gets back to me. Please [...] updates. Nikkie Walter LPN documented in this encounterCrystal Clinic [facility] Center03-26-2025 Telephone encounter Note * Telephone Encounter - Nikkie Walter LPN - 10/21/2024 12:19 PM EDT Patient is aware of all appointment dates and times. I will contact her with a time for the PICC line once [facility] gets back to me. Please leave this note in the box until then. Nikkie Walter LPN [facility]03-26-2025 Telephone encounter Note* Telephone Encounter - Leilani Nayak - 10/21/2024 9:39 AM EDT Patient has been scheduled for the below requested appointments Leilani Lu [facility]03-26-2025 Telephone encounter Note* Telephone Encounter - Nikkie Walter LPN - 10/21/2024 9:28 AM EDT Orders faxed. See phone note. Nikkie Walter LPN [facility]03-26-2025 Miscellaneous Notes* Telephone Encounter - Nikkie Walter LPN - 10/21/2024 9:28 AM EDT Orders faxed. See phone note. Nikkie Walter LPN * Telephone Encounter - Nikkie Walter LPN - 10/20/2024 5:00 PM EDT I will fax orders to [facility] tomorrow (10/21/2024). Nikkie Walter LPN * [...] port? Nikkie Walter LPN documented in this encounterCrystal Clinic Orth[facility] Center03-26-2025 Telephone encounter Note * Telephone Encounter - [...] patient with scheduling updates. Nikkie Walter LPN [facility]03-25-2025 Telephone encounter Note* Telephone Encounter - Nikkie Walter LPN - 10/20/2024 5:00 PM EDT I will fax orders to [facility] tomorrow (10/21/2024). Nikkie Walter LPN [facility]03-25-2025 Telephone encounter Note* Telephone Encounter - Josh Bennett DO - 10/20/2024 4:19 PM EDT Yes, she will need another PICC line since the second cycle is a Sat-Saturday infusion 5FU. Won't be using mitomycin, so hopefully she won't be as sick. We'll pull PICC when pump off on that Saturday. Josh Bennett DO [facility]03-25-2025 Telephone encounter Note* Telephone Encounter - Nikkie Walter LPN - 10/20/2024 11:28 AM EDT Patient's PICC line DC'd d/t clot. She started Eliquis 10/19/2024. Next scheduled lab/OV is 10/26/2024 and next treatment is scheduled 11/02/2024. Should patient have another PICC placed in right arm for treatment or a port? Nikkie Walter LPN [facility]03-25-2025 [facility] History of Present illness Narrative* Shawn [...] with BM, notes spontaneous anal d/c of [id number]-tkfxkab-ssnghyvp w/o warning 3-4 times a day. EXAM: [...] NAME: Marimar Wang PATIENT October 20, 2024 [facility]LOCATION: [place] NURSING NOTE TYPE: CHARGING CRANE OPERATOR - FEMALE PELVIS Subjective Data My arm is doing better now since yesterday. I'm having akhtar/ green discharge x2-3 a day. Additional Data Do you want to see a Dog Boarder? No Status: Post-menopausal. Stress Scale: On a scale of 0 to 10, what number best describes how much distress you have experienced in the past week?(0 being no distress and 10 being extreme distress) 2 Social work notified: Pt denied need to see drug abuse social worker at this time. Nursing Assessment [...] Aquaphor Skin Sensation: mild burning Focused Assessment CHARGING CRANE OPERATOR - FEMALE 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 Rectal pain: Moderate. Urinary frequency (D/N): 8/2.Vaginal bleeding: No. Rectal pain only when utilizing restroom. SIGNED by: Tamia Rodriguez RN documented in this encounterCrystal Clinic Orth[facility] Center03-24-2025 Telephone encounter Note * Telephone Encounter - Nikkie Walter LPN - 10/19/2024 3:14 PM EDT Patient is aware to hold Plavix while on Eliquis. Eliquis medication instructions reviewed. Patient verbalized understanding. Nikkie Walter LPN [facility]03-24-2025 Miscellaneous Notes* Telephone Encounter - Nikkie Walter [...] while on Eliquis. She will need to waste picker this Rx today and take as directed. Nikkie Walter LPN * Telephone Encounter - Josh Bennett DO - 10/19/2024 2:47 PM EDT Rx for apixaban sent. Hold Plavix. Josh Bennett DO * Telephone Encounter - Lynn New LPN - 10/19/2024 2:30 PM EDT Vascular lab @ [facility] contacted office, pt. Positive for DVT in left Axillary Vein. Lynn New LPN documented in this encounterCrystal Clinic Orth[facility] Center03-24-2025 Telephone encounter Note * Telephone Encounter - Jordyn Fernandez - 10/19/2024 3:03 PM EDT Message relayed to patient [facility] Work Phone: [phone]) 347-957903-24-2025 Telephone encounter Note* Telephone Encounter - Nikkie Walter LPN - 10/19/2024 2:56 PM EDT Left message for patient to contact office. Eliquis is $0 for the patient and [facility] is filling it now. She is to Hold Plavix while on Eliquis. She will need to waste picker this Rx today and take as directed. Nikkie Walter LPN [facility]03-24-2025 Telephone encounter Note* Telephone Encounter - Josh Bennett DO - 10/19/2024 2:47 PM EDT Rx for apixaban sent. Hold Plavix. Josh Bennett DO [facility]03-24-2025 Telephone encounter Note* Telephone Encounter - Lynn New LPN - 10/19/2024 2:30 PM EDT Vascular lab @ [facility] contacted office, pt. Positive for DVT in left Axillary Vein. Lynn New LPN [facility]03-24-2025 Telephone encounter Note* Telephone Encounter - Nikkie Walter LPN - 10/19/2024 12:38 PM EDT Patient is aware and verbalized understanding. Nikkie Walter LPN [facility]03-24-2025 Miscellaneous Notes* Telephone Encounter - Nikkie Walter LPN - 10/19/2024 12:38 PM EDT Patient is aware and verbalized understanding. Nikkie Walter LPN * Telephone Encounter - Josh Bennett DO - 10/19/2024 12:12 PM EDT Potassium low. Please start prescription supplement. Josh Bennett DO documented in this encounterCrystal Clinic [facility] Center03-24-2025 Telephone encounter Note * Telephone Encounter - Josh Bennett DO - 10/19/2024 12:12 PM EDT Potassium low. Please start prescription supplement. Josh Bennett DO [facility]03-24-2025 History of Present illness Narrative* Kiley Chase, [...] PICC line measured 41cm. documented in this encounterCrystal Clinic Orthopedic Center03-24-2025 [facility]Ke[facility]-2025 NoteKe[facility]03-21-2025 History of Present illness Narrative* Raul Carney RN - 10/16/2024 11:20 AM EDT Delvin MOLINA at chairside to assess patient's mouth sores. Per Delvin MOLINA patient is to put baking sodapaste onto blister area of bottom lip. Patient is to continue using BMX as well. Patient stated understanding. documented in this encounterCrystal Clinic Orth[facility] Center03-21-2025 Telephone encounter Note * Telephone Encounter - Roxanne Bland RN - 10/16/2024 9:02 AM EDT Patient informed of IVF appointment. Patient instructed to stop zofran/phenergan and switch to compazine. Patient stated understanding. Roxanne Bland RN [facility]03-21-2025 Miscellaneous Notes* Telephone Encounter - Roxanne Bland [...] advise. Kathya Rich LPN documented in this encounterCrystal Clinic Orth[facility] Center03-21-2025 Telephone encounter Note * Telephone Encounter - Janie Rice - 10/16/2024 8:57 AM EDT Patient added for hydration Janie Rice [facility]03-21-2025 Telephone encounter Note* Telephone Encounter - Josh Bennett DO - 10/16/2024 8:54 AM EDT Hydration orders entered. Have her try Compazine rather than Phenergan and Zofran. Josh Bennett DO [facility]03-21-2025 Telephone encounter Note* Telephone Encounter - Kathya Rich LPN - 10/16/2024 8:33 AM EDT Please add on for hydration (2nd floor) at 10 am this morning. Will add to schedule. Tx nurse notified. Will make pt aware. Kathya Rich LPN [facility]03-21-2025 Telephone encounter Note* Telephone Encounter - Roxanne [...] can take for nausea. Roxanne Bland RN [facility]03-21-2025 Telephone encounter Note* Telephone Encounter - Kathya [...] IV hydration. Please advise. Kathya Rich LPN [facility]03-18-2025 [facility]Ke[facility]03-[facility]-2025 History of Present illness Narrative* Sidney [...] NAME: Marimar Wang PATIENT October 13, 2024 [facility]AC[facility]LOCATION: [place] NURSING NOTE TYPE: RECTAL Subjective Data no radiation related side effects, has had nausea/vomiting, mouth sorea, she got IV fluids last week and on scheduled for today Additional Data Do you want to see a Dog Boarder? No Status: Post-menopausal. Stress Scale: On a scale of 0 to 10, what number best describes how much distress you have experienced in the past week?(0 being no distress and 10 being extreme distress) 0 Social work notified: Pt denied need to see drug abuse social worker at this time. Nursing Assessment [...] by: Kari Harrington RN documented in this encounterCrystal Clinic Orth[facility] Center03-18-2025 [facility]Ke[facility]03-17-2025 Telephone encounter Note* Telephone Encounter - Roxanne Bland RN - 10/12/2024 11:00 AM EDT Care Coordination Triage Note Cancer Hooper Situation: Patient reports Mouth pain/Mucositis , nausea [...] 4 hours. IVF tomorrow? Will discuss with GARBAGE COLLECTION SUPERVISOR. Roxanne Bland RN October 12, 2024 11:00 AM [facility]03-17-2025 Miscellaneous Notes* Telephone Encounter - Roxanne Bland RN - 10/12/2024 11:00 AM EDT Care Coordination Triage Note Cancer Hooper Situation: Patient reports Mouth pain/Mucositis , nausea [...] 4 hours. IVF tomorrow? Will discuss with GARBAGE COLLECTION SUPERVISOR. Roxanne Bland RN October 12, 2024 11:00 [...] patches noted. Please advise. documented in this encounterCrystal Clinic Orth[facility] Center03-17-2025 Telephone encounter Note * Telephone Encounter - [...] mouth. No white patches noted. Please advise. [facility]03-13-2025 Telephone encounter Note* Telephone Encounter - Roxanne Bland RN - 10/08/2024 12:03 PM EDT [facility] Care Coordination FOLLOW-UP NOTE Patient identified by [...] week. Roxanne Bland RN October 08, 2024 [facility]03-13-2025 Miscellaneous Notes* Telephone Encounter - Roxanne Bland RN - 10/08/2024 12:03 PM EDT [facility] Care Coordination FOLLOW-UP NOTE Patient identified by [...] RN October 08, 2024 documented in this encounterCrystal Clinic [facility] Center03-13-2025 NoteKeen[facility]03-13-2025 History of Present illness Narrative* Lawanda Rutherford RN - 10/08/2024 10:14 AM EDT Pt's pump beeping during/after radiation. New pump connected. Rate/volume checked with second nurse-LÓPEZ MASSEY documented in this encounterCleveland [id number] NoteKeenan Private Hospital03-12-2025 History of Present illness Narrative* Raul Carney RN - 10/07/2024 11:12 AM EDT Patient here for IV hydration d/t vomiting. She states she had 5 episodes of vomiting since yesterday. Patient has completed her hydration and CADD pump restarted. Patient states she is too tired to have her radiation today. Cseilia RN notified that patient does not want to go through with radiation today. Patient educated on the risks of not getting radiation today and patient would still like to go home. documented in this encounterCrystal Clinic [facility] Center03-11-2025 Telephone encounter Note * Telephone Encounter - [...] after hours number protocol. Roxanne Bland RN [facility]03-11-2025 Miscellaneous Notes* Telephone Encounter - Roxanne Bland [...] protocol. Roxanne Bland RN documented in this encounterCrystal Clinic [facility] Center03-11-2025 [facility]Ke[facility]03-11-2025 History of Present illness Narrative* Tamia Rodriguez RN - 10/06/2024 9:53 AM EDT Radiation Therapy - Nursing Note (OTV) PATIENT NAME: Marimar Wang PATIENT October 06, 2024 [facility]ATION: [place] NURSING NOTE TYPE: CHARGING CRANE OPERATOR - FEMALE PELVIS Subjective Data I've been nauseous. Additional Data Do you want to see a Dog Boarder? No Status: Post-menopausal. Stress Scale: On a scale of 0 to 10, what number best describes how much distress you have experienced in the past week?(0 being no distress and 10 being extreme distress) 5 Social work notified: Pt denied need to see drug abuse social worker at this time. Nursing Assessment [...] Skin Sensation: Within Normal Limits Focused Assessment CHARGING CRANE OPERATOR - FEMALE PELVIS: Rectal bleeding: No. [...] planned. Sidney Joya MD documented in this encounterCrystal Clinic [facility] Center03-11-2025 [facility]Ke[facility]03-11-2025 NoteKe[facility]03-11-2025 History of Present illness Narrative* Raul Hendrix LISW - 10/06/2024 9:26 AM EDT Spoke with pt regarding a rollator prescription to send to [employer]. SW printed [employer]'s quick script form and will have physician review and sign. Will fax to [employer] once completed and send to internal scanning. HARITHA Massey documented in this encounterCrystal Clinic [facility] Center03-05-2025 Note* ACP (Advance Care Planning) - Raul Hendrix LISW - 09/30/2024 11:02 AM EST Goals of Care Date of Discussion: 09/29/2024 DIscussion Participants: Marimar Wang (pt) Clinical: HARITHA Massey Patient/Family/Decision Makers: Magda Borjas (daughter) P: [phone] [place] [address] In this encounter: Explained the [place] Order of Decision Makers and patient expressed understanding. Assisted patient in completing Healthcare Power of Mission Planner. Patient named Magda Borjas (daughter) as agent. [...] to pt's daughter this date. HARITHA Massey [facility]03-05-2025 Miscellaneous Notes* ACP (Advance Care Planning) - Raul Hendrix LISW - 09/30/2024 11:02 AM EST Goals of Care Date of Discussion: 09/29/2024 DIscussion Participants: Marimar Wang (pt) Clinical: HARITHA Massey Patient/Family/Decision Makers: Magda Borjas (daughter) P: [phone] [address] [facility] [place] [address] In this encounter: Explained the [place] Order of Decision Makers and patient expressed understanding. Assisted patient in completing Healthcare Power of Mission Planner. Patient named Magda Borjas (daughter) as agent. [...] this date. HARITHA Massey documented in this encounterCrystal Clinic [facility] Center03-05-2025 History of Present illness Narrative* Azul Nair [...] PATIENT PRESENTS WITH AN IMPLANTABLE OR ATTACHED RUBBER MILL TENDER: No RADIOLOGY DEPARTMENT: Mammography PERIPHERAL IV DATA: Not applicable SIGNED BY: Leslie Wrighto Gabrielle September 30, 2024 11:27 AM documented in this encounterCrystal Clinic [facility] Center03-05-2025 [facility]Ke[facility]03-05-2025 NoteKe[facility]03-05-2025 History of Present illness Narrative* Juan José Cheema MD - 09/30/2024 8:56 AM EST Wired Music Operator provided by Olga Jerry LPN. Vidya is [...] Living2 SAB0 IAB0 Ectopic0 Multiple0 Live Births0 Fisheries Biologist History LMP: 01/22/2010, Postmenopausal Age at Menarche: 9 Age at First : Age at Menopause: Fisheries Biologist History Comments: Sexual Activity: Not Currently; No [...] Ischemic Heart Disease Father age 42 from [place] Hypertension Sister other (Other) Brother 18 MVA [...] discussed with the Patient or Patient's Authorized Instructor Of Sociology. As applicable, any other physician, advance practice provider, medical student, or other health professional student that will be observing or involved in the sensitive examination for educational or training purposes was discussed with the Patient or Authorized Instructor Of Sociology. The Patient or Authorized Instructor Of Sociology has agreed to proceed with the sensitive [...] external genitalia normal, normal Bartholin's glands, urethra, [place]'s glands, no vulvar lesions, no cervical lesions, [...] Juan José Cheema MD documented in this encounterCrystal Clinic [facility] Center03-04-2025 Telephone encounter Note * Telephone Encounter - Sarah Pearson PA-C - 09/29/2024 11:58 AM EST Saw pt virtually this AM Sarah Pearson PA-C [facility]03-04-2025 Miscellaneous Notes* Telephone Encounter - Sarah Pearson PA-C - 09/29/2024 11:58 AM EST Saw pt virtually this AM Sarah Pearson PA-C documented in this encounterCrystal Clinic Orthopedic Center03-04-2025 NoteHNO ID: [id number] Author: SARAH PEARSON PA-C Service: ? Author Type: Physician Forestry Adviser Type: Progress Notes Filed: 09/29/2024 11:42 Note Text: [facility] [place] [facility] Sarah Pearson PA-C [place]- [address] [place] [address] [place]- [address] [place] [address] [place]- [address] [place] [address] ; RHEUMATOLOGY PROGRESS NOTE VIRTUAL VISIT PROGRESS NOTE This is a virtual visit using HIPAA compliant video platform. It required patient-provider interaction for the medical decision making as documented below using [employer]t. I have communicated my name and active licensure. The patient?s identity and physical location were verified at the time of this visit. Either the patient or their legal insurance healthcare representative has been informed of the risks [...] replaced 01/23/2023. Doing well. Dr. Odalis Cooney [facility] No longer seeing pain mgmt- not [...] 01/30/2019 Carotid artery stenosis bilateral- [facility] COPD (chronic obstructive pulmonary disease) (HCC) [...] Ischemic Heart Disease Father age 42 from [place] Hypertension Sister other (Other) Brother 18 MVA Angioedema Maternal Grandmother other (CHF) Maternal Grandfather Hypertension Paternal Grandmother Stroke Paternal Grandfather Depression Daughter other (PTSD) Daughter other (Anxiety) Daughter other ( (more content not included)...[facility]03-04-2025 History of Present illness Narrative* Sarah Pearson PA-C - 09/29/2024 9:57 AM EST Images from the original note were not included. [facility] [place]- [address] [place] [address] [place]- [address] [place] [address] [place]- [address] [place] [address] ; RHEUMATOLOGY PROGRESS NOTE VIRTUAL VISIT PROGRESS NOTE This is a virtual visit using HIPAA compliant video platform. It required patient-provider interaction for the medical decision making as documented below using [employer]t. I have communicated my name and active licensure. The patient s identity and physical location wereverified at the time of this visit. Either the patient or their legal insurance healthcare representative has been informed of the risks [...] replaced 01/23/2023. Doing well. Dr. Odalis Co[facility] No longer seeing pain mgmt- not [...] Ischemic Heart Disease Father age 42 from [place] Hypertension Sister other (Other) Brother 18 MVA [...] Take 80 mg by mouth once daily. nuzkkr-qdwvlyka-shuasto (CREON 36) 36,000-114,000- 180,000 unit delayed release [...] which included preparing to see the patient, fill-lm-evsl patient care, completing clinical documentation, obtaining and/or reviewing separately obtained history, performing a medically appropriate examination, counseling and educating the pat ient/family/caregiver, ordering medications, tests, or procedures, independently interpreting results (not separately reported), communicating results to the patient/family/caregiver, and care coordination (not separately reported). documented in this encounterCrystal Clinic Orth[facility] Center03-04-2025 Telephone encounter Note * Telephone Encounter - Kari Harrington RN - 09/29/2024 9:44 AM EST Radiation therapist notified of change of start date to 10/05/24 [facility]03-04-2025 Miscellaneous Notes* Telephone Encounter - Kari Harrington RN - 09/29/2024 9:44 AM EST Radiation therapist notified of change of start date to 10/05/24 * Telephone Encounter - Nikkie Walter LPN - 09/28/2024 3:27 PM EST Patient is scheduled for PICC placement 10/02/2024 @ 10:00, [facility]. Patient is aware of appointment date and time. Nikkie Walter LPN * Telephone Encounter - Jordyn Fernandez - 09/28/2024 12:37 PM EST Appointments scheduled. Waiting to hear from [facility] regarding PICC line * Telephone Encounter - Jrodyn Fernandez - 09/28/2024 10:47 AM EST Nikkie sent an order to [facility] requesting PICC line placement * [...] weeks 3, 5, 8 (can alternate with CARBON PRINTER) CBC/CMP D29 DONE CBC/CMP week 8 with OV (3 weeks after last dose of chemo) Thank you. Roxanne Bland RN * Telephone Encounter - Josh Bennett DO - 09/27/2024 2:45 PM EST Can treatment start on 10/05? The chemotherapy regiment is a M-F infusion of 5FU. Josh Bennett DO * Telephone Encounter - Jordyn Fernandez - 09/25/2024 4:21 PM EST Concurrent chemo/XRT- Mairmar Wang - [id number] starting XRT on 10/06 per Mitra See [...] weeks 3, 5, 8 (can alternate with CARBON PRINTER) CBC/CMP D29 CBC/CMP week 8 with OV [...] CT and MRI results documented in this encounterCrystal Clinic Orthopedic Center03-04-2025 History of Present illness Narrative* Sidney Joya MD - 09/29/2024 12:00 AM EST MARIMAR WANG [id number] 09/29/2024 [facility] Department of Radiation Oncology [facility] RADIATION ONCOLOGY SIMULATION NOTE DATE OF SIMULATION: [...] Joya M.D./billie 53:14 PM documented in this encounterCrystal Clinic Orth[facility] Center03-04-2025 History of Present illness Narrative* Sidney Joya MD - 09/29/2024 12:00 AM EST MARIMAR WANG [id number] 09/29/2024 [facility] Department of Radiation Oncology Treatment Planning Note For reasons stated in the consult note, Marimar Wang is a candidate for radiation therapy. Basedon review and interpretation of the relevant diagnostic studies together with the exam findings, Mariamr Wang was simulated on 09/29/2024 at which [...] Joya M.D. 52:38 PM documented in this encounterCrystal Clinic Orthopedic Center03-04-2025 [facility]03-04-2025 [facility]Ke[facility]03-03-2025 Telephone encounter Note* Telephone Encounter - Candace Alvarenga MA - 09/28/2024 4:04 PM EST Can we change this patient's appointment to a virtual per patient's request? She is scheduled for tomorrow 09-29-24 in [place] with Sarah. [facility]03-03-2025 Miscellaneous Notes* Telephone Encounter - Candace Alvarenga MA - 09/28/2024 4:04 PM EST Can we change this patient's appointment to a virtual per patient's request? She is scheduled for tomorrow 09-29-24 in [place] with Sarah. documented in this encounterCrystal Clinic Orth[facility] Center03-03-2025 Telephone encounter Note * Telephone Encounter - Nikkie Walter LPN - 09/28/2024 3:27 PM EST Patient is scheduled for PICC placement 10/02/2024 @ 10:00, [facility]. Patient is aware of appointment date and time. Nikkie Walter LPN [facility]03-03-2025 Telephone encounter Note* Telephone Encounter - Jordyn Fernandez - 09/28/2024 12:37 PM EST Appointments scheduled. Waiting to hear from [facility] regarding PICC line [facility] Work Phone: [phone] Telephone encounter Note* Telephone Encounter - Jordyn Fernandez - 09/28/2024 10:47 AM EST Nikkie sent an order to [facility] requesting PICC line placement [facility]03-03-2025 Telephone encounter Note* Telephone Encounter - Roxanne [...] weekly labs. Thank you. Roxanne Bland RN [facility]03-03-2025 Telephone encounter Note* Telephone Encounter - Jordyn [...] weeks 3, 5, 8 (can alternate with CARBON PRINTER) CBC/CMP D29 DONE CBC/CMP week 8 with OV (3 weeks after last dose of chemo) Thank you. Roxanne Bland RN [facility]03-02-2025 Telephone encounter Note* Telephone Encounter - Josh Bennett DO - 09/27/2024 2:45 PM EST Can treatment start on 10/05? The chemotherapy regiment is a M-F infusion of 5FU. Josh Bennett DO [facility]02-28-2025 Telephone encounter Note* Telephone Encounter - Jordyn Fernandez - 09/25/2024 4:21 PM EST Concurrent chemo/XRT- Marimar Wang - [id number] starting XRT on 10/06 per Mitra See notes from Roxanne below for ov and labs needed with chemo scheduling Patient had chemo ed on 09/25 [facility]02-28-2025 Telephone encounter Note* Telephone Encounter - Kari Harrington RN - 09/25/2024 3:[address] let [address] Joya know we are ready to proceed. We can let you know when sim /treatment is scheduled [facility]02-28-2025 [facility] History of Present illness Narrative* Roxanne Bland RN - 09/25/2024 2:52 PM EST This visit was completed by phone. 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 YES Confirmed date and time for chemotherapy ? YES Other appointments (labs, imaging) discussed? 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 Please advise. Kari/Cesilia-- do you know when patient will be set up for sim? Once patient starts treatment, she will need: CBC/CMP D1 CBC weekly x 8 weeks OV weeks 3, 5, 8 (can alternate with CARBON PRINTER) CBC/CMP D29 CBC/CMP week 8 with OV (3 weeks after last dose of chemo) Thank you. Roxanne Bland RN [facility]02-28-2025 Telephone encounter Note* Telephone Encounter - Roxanne Bland RN - 09/25/2024 10:20 AM EST Patient is scheduled for a chemo edu today. I can discuss results at that time. Roxanne Bland RN [facility]02-27-2025 [facility] History of Present illness Narrative* Kimmy [...] granddaughter will take her. documented in this encounterCrystal Clinic [facility] Center02-27-2025 Telephone encounter Note * Telephone Encounter - Josh Bennett DO - 09/24/2024 4:58 PM EST Okay to give her results. Will proceed with chemotherapy and radiation as planned. Josh Bennett DO [facility]02-27-2025 Telephone encounter Note* Telephone Encounter - Jordyn Fernandez - 09/24/2024 3:14 PM EST Patient requesting 09/23 CT and MRI results [facility]02-26-2025 History of Present illness Narrative* Karly Verdugo [...] PATIENT PRESENTS WITH AN IMPLANTABLE OR ATTACHED RUBBER MILL TENDER: No ALLERGIES: Reviewed and unchanged CONTRAST ALLERGY: [...] 2024 TIME: 4:31 PM documented in this encounterCrystal Clinic [facility] Center02-26-2025 [facility] History of Present illness Narrative* Jackie [...] PATIENT PRESENTS WITH AN IMPLANTABLE OR ATTACHED RUBBER MILL TENDER: No ALLERGIES: Reviewed and unchanged CONTRAST ALLERGY: NO. EXAM: MRI - CONTRAST TYPE: GROUP II PERIPHERAL IV DATA: Ambulatory: A peripheral IV was started in the Left WRIST with a Angio cath: 22gauge. RADIOLOGY DEPARTMENT: MR; Exam(s) Completed: Body: Rectal SIGNATURE: RT Sheyla(R) PATIENT NAME: Marimar Wang DATE: September 23, 2024 TIME: 2:39 PM documented in this encounterCrystal Clinic [facility] Center02-26-2025 [facility]02-25-2025 Telephone encounter Note* Telephone Encounter - Jordyn Fernandez - 09/22/2024 9:53 AM EST Patient called for genotyping lab results. Informed her they are still in process. [facility] Work Phone: 1(855) 926-264002-25-2025 Miscellaneous Notes* Telephone Encounter - Jordyn Fernandez - 09/22/2024 9:53 AM EST Patient called for genotyping lab results. Informed her they are still in process. documented in this encounterCrystal Clinic [facility] Center02-21-2025 Telephone encounter Note * Telephone Encounter - [...] Team tab: Yes Assessment Completed HARITHA Massey [facility]02-21-2025 Miscellaneous Notes* Telephone Encounter - Raul Hendrix [...] Assessment Completed HARITHA Massey documented in this encounterCrystal Clinic [facility] Center02-20-2025 [facility] History of Present illness Narrative* Elisabeth Quintero RN - 09/17/2024 10:25 AM EST Radiation Therapy - Nursing Note (Consult) PATIENT NAME: Marimar Wang PATIENT September 17, 2024 [facility]: [place] Chief Complaint: consult Reason for visit: Consult. Referring physician: Internal provider Dr Bennett Subjective Data: see pain assessment Additional Data Do you want to see a Dog Boarder? No Are you interested in information about fertility? No Status: Post-menopausal Stress Scale: On a scale of 0 to 10, what number best describes how much distress you have experienced in the past week?(0 being no distress and 10 being extreme distress) 5 Social work notified: Pt denied need to see drug abuse social worker at this time. SIGNED by: [...] some stool leakage. She went to the [facility] ED and was found to have anal mass. CT abdomen/pelvis on 09/02/24 showed a 5.4 cm x 1.6 cm fluid collection with adjuvant fat stranding thought to be compatible with an abscess. On examination at that time by Dr. Kenya Garcia, She had a perianal mass. This extended [facility] external to the anal verge and seemed [...] Take 80 mg by mouth once daily. rqnmfy-rtlkoixy-yanptft (CREON 36) 36,000-114,000- 180,000 unit delayed release [...] 01/30/2019 Carotid artery stenosis bilateral- [facility] COPD (chronic obstructive pulmonary disease) ([facility]) Crohn disease ([facility]) Depression Diverticulosis Fibromyalgia GERD (gastroesophageal reflux disease) GI bleed 02/2019 Hiatal hernia Repaired 05/07/19 Hyperlipidemia Hypertension Insomnia Iron deficiency anemia Iron deficiency anemia Osteoarthritis Osteoporosis Piriformis syndrome PVC's (premature ventricular contractions) Rheumatoid arthritis ([facility]) Sjogren's disease (HCC) Vitamin D deficiency Prior [...] Ischemic Heart Disease Father age 42 from [place] Hypertension Sister other (Other) Brother 18 MVA [...] that other personnel such as radiation therapists, gear inspector, and physicists will partici pinon in planning [...] by: Sidney Joya MD cc: Julio Arriaga [address] [place] [address] Josh Bennett [address] [facility] [id number] documented in this encounterCrystal Clinic Orth[facility] Center02-20-2025 [facility]02-19-2025 Telephone encounter Note* Telephone Encounter - Jordyn Fernandez - 09/16/2024 1:08 PM EST Patient called and rescheduled CT and MRI to 09/23 due to transportation. [facility] Work Phone: 1(701) 598-822902-19-2025 Miscellaneous Notes* Telephone Encounter - Jordyn Fernandez [...] Jordyn Fernandez - 09/16/2024 10:28 AM EST [facility] called stating that order for venous [...] tomorrow.-scheduled STAT US right leg here or [facility].-FAXED TO [facility] PET scan MORAIMA. cancel- per Dr. Bennett. Separate te sent Referral to gynecology upstairs. done Referral to Dr. Joya this week if possible.-SCHEDULED CHEMO ED- Patient said to schedule the rest and she will see it on mychart documented in this encounterCrystal Clinic Orthopedic Center02-19-2025 Telephone encounter Note * Telephone Encounter - Rosio Buck LPN - 09/16/2024 11:18 AM EST Patient sent a [id number] message requesting the following refill. The original prescription was discontinued on 09/16/2024 by Josh Bennett DO. Renewing this prescription may not be appropriate. Requested Prescriptions Pending Prescriptions Disp Refills cholecalciferol, Vitamin D3, (VITAMIN D3) 1,250 mcg (50,000 unit) cap capsule 90 capsule 1 Sig: Take 1 capsule by mouth every other week. Patient last appointment: 05/15/2024 Next Appointment: 09/29/2024 Patient Phone numbers: [phone] (home) Request is for script(s) to be escript to pharmacy. [facility] [place], [place] [id number] - [address] [address] Rosio Buck LPN [facility]02-19-2025 Miscellaneous Notes* Telephone Encounter - Rosio Buck LPN - 09/16/2024 11:18 AM EST Patient sent a [id number] message requesting the following refill. The original prescription was discontinued on 09/16/2024 by Josh Bennett DO. Renewing this prescription may not be appropriate. Requested Prescriptions Pending Prescriptions Disp Refills cholecalciferol, Vitamin D3, (VITAMIN D3) 1,250 mcg (50,000 unit) cap capsule 90 capsule 1 Sig: Take 1 capsule by mouth every other week. Patient last appointment: 05/15/2024 Next Appointment: 09/29/2024 Patient Phone numbers: [phone] (home) Request is for script(s) to be escript to pharmacy. [facility] [address] [place], [place] [id number] - [address] [phone] 181 Rosio Buck LPN documented in this encounterCrystal Clinic [facility] Center02-19-2025 Telephone encounter Note * Telephone Encounter - Nikkie Walter LPN - 09/16/2024 10:32 AM EST PSS- I spoke with Shirley- please put this patient on her scheduled at 11:30 in vascular lab. DONE Thank you. Nikkie Walter LPN [facility]02-19-2025 Telephone encounter Note* Telephone Encounter - Jordyn Fernandez - 09/16/2024 10:28 AM EST [facility] called stating that order for venous doppler needs an electronic signature. She states order came thru, but cut off at signature. Patient called right after stating the same and was informed that they are possibly scheduling intoMarch and is asking if that is ok. [facility]02-19-2025 Telephone encounter Note* Telephone Encounter - Josh Bennett DO - 09/16/2024 10:10 AM EST Thank you orders filed. Josh Bennett DO [facility]02-19-2025 Telephone encounter Note* Telephone Encounter - Nikkie Walter LPN - 09/16/2024 8:[address] Bennett: Cancel PET scan. STAT MRI pelvis and STAT CT chest. DONE Dr. Bennett- please file orders. PSS- please contact patient to schedule. Nikkie Walter LPN previous AVS- Labs tomorrow.-scheduled STAT US right leg here or [facility].-FAXED TO [facility] PET scan MORAIMA. cancel- per Dr. Bennett. Separate te sent Referral to gynecology upstairs. done Referral to Dr. Joya this week if possible.-SCHEDULED CHEMO ED- Patient said to schedule the rest and she will see it on mychart [facility]02-18-2025 Telephone encounter Note* Telephone Encounter - Janie Rice - 09/15/2024 5:00 PM EST Labs tomorrow.-scheduled STAT US right leg here or [facility].-FAXED TO [facility] PET scan MORAIMA. cancel- per Dr. Bennett. Separate te sent Referral to gynecology upstairs. done Referral to Dr. Joya this week if possible.-SCHEDULED CHEMO ED- DONE Patient said to schedule the rest and she will see it on mychart Janie Rice [facility]02-18-2025 Miscellaneous Notes* Telephone Encounter - Janie Rice - 09/15/2024 5:00 PM EST Labs tomorrow.-scheduled STAT US right leg here or [facility].-FAXED TO [facility] PET scan MORAIMA. cancel- per Dr. Bennett. Separate te sent Referral to gynecology upstairs. done Referral to Dr. Joya this week if possible.-SCHEDULED CHEMO ED- DONE Patient said to schedule the rest and she will see it on mychart Janie Rice documented in this encounterCrystal Clinic Orth[facility] Center02-18-2025 History of Present illness Narrative* Josh Bennett [...] Interim history: Presented to the ED at [facility] on 09/02/2024 with complaint of perianal [...] to be a perianal mass. It extended [facility] external to the anal verge and another [...] carcinoma in situ. See comment. COMMENT Immunohistochemistry ([id number]) for surrogate HPV marker (p16) will be [...] 01/30/2019 Carotid artery stenosis bilateral- [facility] COPD (chronic obstructive pulmonary disease) (HCC) [...] Take 80 mg by mouth once daily. tbxfab-tnlwznee-mylysgo (CREON 36) 36,000-114,000- 180,000 unit delayed release [...] Ischemic Heart Disease Father age 42 from [place] Hypertension Sister other (Other) Brother 18 MVA [...] was discussed with the patient or authorized insurance healthcare representative. The patient or authorized insurance healthcare representative has agreed to proceed with the [...] her to get in touch with her aligner barrel and receiver to see if she can hold Plavix [...] which included preparing to see the patient, oehd-od-ejxe patient care, completing clinical documentation, obtaining and/or reviewing separately obtained history, performing a medically appropriate examination, counseling and educating the pat ient/family/caregiver, ordering medications, tests, or procedures, and communicating results to thepatient/family/caregiver. Josh Bennett DO documented in this encounterCrystal Clinic [facility]02-18-2025 [facility]02-13-2025 Telephone encounter Note* Telephone Encounter - Jennifer Arias MD - 09/10/2024 4:30 PM EST We will have to discuss this with her oncologist [facility]02-13-2025 Miscellaneous Notes* Telephone Encounter - Jennifer Arias [...] PCP. Rosio Buck LPN documented in this encounterCrystal Clinic [facility] Center02-13-2025 Telephone encounter Note * Telephone Encounter - [...] out to her PCP. Rosio Buck LPN [facility]02-12-2025 Telephone encounter Note* Telephone Encounter - Mary Vicente LPN - 09/09/2024 7:46 AM EST Pharmacy faxed requesting the following refill. Requested Prescriptions Pending Prescriptions Disp Refills leflunomide (ARAVA) 20 mg tablet [Pharmacy Med Name: LEFLUNOMIDE 20MG TAB] 90 tablet 0 Sig: Take 1 tablet by mouth once daily Patient last appointment: 05/15/2024 Next Appointment: 09/18/2024 Patient Phone numbers: [phone] (home) Request is for script(s) to be escript to pharmacy. Mary Vicente LPN [facility]02-12-2025 Miscellaneous Notes* Telephone Encounter - Mary Vicente LPN - 09/09/2024 7:46 AM EST Pharmacy faxed requesting the following refill. Requested Prescriptions Pending Prescriptions Disp Refills leflunomide (ARAVA) 20 mg tablet [Pharmacy Med Name: LEFLUNOMIDE 20MG TAB] 90 tablet 0 Sig: Take 1 tablet by mouth once daily Patient last appointment: 05/15/2024 Next Appointment: 09/18/2024 Patient Phone numbers: [phone] (home) Request is for script(s) to be escript to pharmacy. Mary Vicente LPN documented in this encounterCrystal Clinic [facility] Center02-10-2025 Telephone encounter Note * Telephone Encounter - Leilani Nayak - 09/07/2024 3:31 PM EST New patient information given to the pss staff from nursing to schedule patient as a est complex with for new diagnosis. I called and spoke to Vidya and scheduled her as she requested for 09/15/24 @ 3:00pm, she confirmed this date and time Leilani Lu [facility]02-10-2025 Miscellaneous Notes* Telephone Encounter - Leilani Nayak [...] she needs to see , Per at [facility] because she had a mass in [...] on scheduling Leilani Lu documented in this encounterCrystal Clinic [facility] Center02-10-2025 Telephone encounter Note * Telephone Encounter - Leilani Nayak - 09/07/2024 9:16 AM EST Patient called in stating that she needs to see , Per at [facility] because she had a mass in [...] ofthis. Please advise on scheduling Leilani Lu [facility]02-06-2025 [facility] Medical Records Department [address] [place] [address] Discharge Summary 09/03/24 1552 MR#: [id number] Acct: [id number] Name: MARIMAR WANG Rep #: [id number] : 1960 64 From: Kenya Garcia MD PCP: SINAI Arriola Status:ADM AMOR Location: [place] [address] Providers Date of Admission: 09/02/24 Date of [...] mg PO QHS MENTAL HEALTH 12/13/15 peg 863-wffmhgqtyplc-ogcqvijz 1 %-0.2 %-0.2 % eye drops (Dry [...] 4 g PO PRN PRN Constipation 01/09/23 xjwmdx-ficlyvjs-prmrlzh 36,000-114,000-180,000 unit capsule,delay rel (Creon) See Rx Instructions PO .COMPLEX #300 caps 09/25/23 acetaminophen 500 mg tablet 1,000 mg PO Q6H PRN fever or pain 11/15/23 atorvastatin 80 mg tablet 80 mg PO QHS 11/15/23 hydrocortisone 2.5 % topical cream with perineal applicator 1 applic [place] BID PRN Crohn's disease #30 grams 11/29/23 [...] Neut % (Auto) 74 (more content not included)...[facility] 09-02-2024 Evaluation note* Diagnosis Onset Date Resolution Status Admit Date Mass of anus acute August 2:24pm Perirectal abscess resolved Februa 2024 2:24pm 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 acute September 15 025 1:12pm [facility] Work Phone: 1(209) 952-711902-05-2025 [facility] Medical Records Department [address] [place] [address] History Physical Exam 09/02/24 1558 MR#: [id number] Acct: [id number] Name: MARIMAR WANG Rep #: [id number] : 1960 64 From: Kenya Garcia MD PCP: Julio Arriaga NP-C Status:[facility] Location: [place] [address] HPI - General General Date of Admission: 09/02/24 Date of Service: 09/02/24 Chief Complaint: Rectal pain HPI Narrative MARIMAR WANG, is a 64 F who presents to the [place] emergency department with rectal pain for the [...] positive as well. Dr. Pitts is her synchronizer. Surgery consult was obtained and plans were made to admit the patient and perform an I D. [facility] Medical History (Updated 09/02/24 [...] QHS MENTAL HEALTH 6 09/01/24 History peg 688-yyopqfdscavm-bntwkweb 1 1 drp OP 4X/DAY DRY EYES [...] Constipation Unknown History gram/dose oral powder (Miralax) njrwij-igrpvpqp-dgevuht See Rx Instructions PO .COMPLEX 09/01/24 Rx 36,000-114,000-180,000 unit #300 caps capsule,delay rel (Creon) acetaminophen 500 mg tablet 1,000 mg PO Q6H PRN fever or pain 11/15/23 09/01/24 History atorvastatin 80 mg tablet 80 mg PO QHS 11/15/23 09/01/24 His tory hydrocortisone 2.5 % topical cream 1 applic [place] BID PRN Crohn's 10/19 Unknown Rx with [...] dicyclomine 10 mg capsul (more content not included)...[facility]02-05-2025 [facility]02-05-2025 History of Present illness Narrative* Kimmy [...] to take her self. documented in this encounterCrystal Clinic Orthopedic Center01-30-2025 Evaluation note* Diagnosis Onset Date Resolution Status [...] skin of buttock acute September 15 1:12pm [facility] Work Phone: 1(137) 177-248101-23-2025 History of Present illness Narrative* Jorge Alberto [...] PATIENT PRESENTS WITH AN IMPLANTABLE OR ATTACHED RUBBER MILL TENDER: No RADIOLOGY DEPARTMENT: Bone Density PERIPHERAL IV DATA: Not applicable SIGNED BY: RT Sandra(R) August 20, 2024 9:29 AM documented in this encounterCrystal Clinic [facility] Center01-23-2025 [facility]01-20-2025 Telephone encounter Note* Telephone Encounter - Jordyn Fernandez - 08/17/2024 4:13 PM EST Lab rescheduled as requested [facility] Work Phone: 1(126) 899-184901-20-2025 Miscellaneous Notes* Telephone Encounter - Jordyn Fernandez - 08/17/2024 4:13 PM EST Lab rescheduled as requested * Telephone Encounter - Kathya Rich LPN - 08/17/2024 2:13 PM EST Pt cannot make it into lab today. Please move her lab apt to after her bone density. Pt aware. Kathya Rich LPN documented in this encounterCrystal Clinic Orth[facility] Center01-20-2025 Telephone encounter Note * Telephone Encounter - Kathya Rich LPN - 08/17/2024 2:13 PM EST Pt cannot make it into lab today. Please move her lab apt to after her bone density. Pt aware. Kathya Rich LPN [facility]11-19-2024 Telephone encounter Note* Telephone Encounter - Lynn New LPN - 06/16/2024 5:01 PM EST Pt. Aware, first dose is Lynn New LPN [facility]11-19-2024 Miscellaneous Notes* Telephone Encounter - Lynn New LPN - 06/16/2024 5:01 PM EST Pt. Aware, first dose is Lynn Nwe LPN * Telephone Encounter - Lynn New LPN - 06/16/2024 4:56 PM EST ----- Message from Josh Bennett DO sent at 06/16/2024 3:08 PM EST ----- Low iron confirmed. Okay to start iron sucrose. documented in this encounterCrystal Clinic Orthopedic Center11-19-2024 Telephone encounter Note * Telephone Encounter - Lynn New LPN - 06/16/2024 4:56 PM EST ----- Message from Josh Bennett DO sent at 06/16/2024 3:08 PM EST ----- Low iron confirmed. Okay to start iron sucrose. [facility]11-19-2024 Telephone encounter Note* Telephone Encounter - Lawanda [...] was agreeable to having all treatments in [place]. Spoke with patient and she does want to have treatments here. Advised that her authorization for [place] is no longer open/available and that she will be treated in [place] as she has requested. Mando reschedule balance of iron infusions when she comes in for her treatment on 06/18. Lawanda Hunter [facility]11-19-2024 Miscellaneous Notes* Telephone Encounter - Lawanda Hunter - 06/16/2024 2:05 PM EST Pharmacist on duty spoke with PSS about an hour ago re: scheduling patient here for Orencia and Iron, that we could get the Orencia in time for if that worked for the patient and that the authorization/orders could be flipped to [place] and there shouldn't be an issue with [...] comes in for her treatment on 06/18. Laawnda Hunter * Telephone Encounter - Jordyn Fernandez - 06/16/2024 1:27 PM EST Please review orders and advise. Providers office states that patient would start here in June. * Telephone Encounter - Rosio Buck LPN - 06/16/2024 12:25 PM EST Patient asking if she can have her Orencia infusions at [facility]. Patient does not drive in the snow and she will also be going there for iron infusions. Patient is going to contact the infusion center and see if they will be able to administer Orencia and call the office back. Rosio Buck LPN documented in this encounterCrystal Clinic Orthopedic Center11-19-2024 Telephone encounter Note * Telephone Encounter - Jordyn Fernandez - 06/16/2024 1:27 PM EST Please review orders and advise. Providers office states that patient would start here in June. [facility] Work Phone: 1(968) 862-933911-19-2024 Telephone encounter Note* Telephone Encounter - Rosio Buck LPN - 06/16/2024 12:25 PM EST Patient asking if she can have her Orencia infusions at [facility]. Patient does not drive in the snow and she will also be going there for iron infusions. Patient is going to contact the infusion center and see if they will be able to administer Orencia and call the office back. Rosio Buck LPN [facility]11-18-2024 [facility]Ke[facility]11-18-2024 History of Present illness Narrative* Josh [...] 01/30/2019 Carotid artery stenosis bilateral- [facility] COPD (chronic obstructive pulmonary disease) (HCC) [...] Take 80 mg by mouth once daily. sunjph-ocrvcjtb-xnkbroc (CREON 36) 36,000-114,000- 180,000 unit delayed release [...] Ischemic Heart Disease Father age 42 from [place] Hypertension Sister other (Other) Brother 18 MVA [...] patient, reviewing EGD and colonoscopy reports via [facility] portal, jttv-ub-fpwm patient care, completing clinical documentation, obtaining and/or reviewing separately obtained history, performing a medically appropriate examination, counseling and educating the patient/family/caregiver, communicating with other HCPs (not separately reported), and communicating results to the patient/family/caregiver. Josh Bennett DO documented in this encounterCrystal Clinic [facility] Center11-18-2024 Telephone encounter Note * Telephone Encounter - Rosio Buck LPN - 06/15/2024 8:28 AM EST Pharmacy requesting the following refill. Requested Prescriptions Pending Prescriptions Disp Refills leflunomide (ARAVA) 20 mg tablet [Pharmacy Med Name: LEFLUNOMIDE 20MG TAB] 30 tablet 0 Sig: Take 1 tablet by mouth once daily Patient last appointment: 05/15/2024 Next Appointment: 09/18/2024 Patient Phone numbers: [phone] (home) Request is for script(s) to be escript to pharmacy. [facility] [address] [place] [address] [facility] [phone] 1811 Rosio Buck LPN [facility]11-18-2024 Miscellaneous Notes* Telephone Encounter - Rosio Buck LPN - 06/15/2024 8:28 AM EST Pharmacy requesting the following refill. Requested Prescriptions Pending Prescriptions Disp Refills leflunomide (ARAVA) 20 mg tablet [Pharmacy Med Name: LEFLUNOMIDE 20MG TAB] 30 tablet 0 Sig: Take 1 tablet by mouth once daily Patient last appointment: 05/15/2024 Next Appointment: 09/18/2024 Patient Phone numbers: [phone] (home) Request is for script(s) to be escript to pharmacy. [facility] [address] [place] [address] [facility] [phone] Rosio Buck LPN documented in this encounterCrystal Clinic Orthopedic Center11-06-2024 Telephone encounter Note * Telephone Encounter - Leilani Nayak - 06/03/2024 2:34 PM EST I called and spoke to the patient and she was unable to make any of the sooner appointments with Judi Portillo CNP so she chose to stay with for 06/15/24 Leilani Lu [facility]11-06-2024 Miscellaneous Notes* Telephone Encounter - Leilani Nayak [...] she could go to Judi as a CARBON PRINTER. Kathya Rich LPN * Telephone Encounter - [...] 03, 2024 10:38 AM documented in this encounterCrystal Clinic Orthopedic Center11-06-2024 Telephone encounter Note * Telephone Encounter - Kathya Rich LPN - 06/03/2024 1:36 PM EST If pt wants something sooner she could go to [facility]i as a CARBON PRINTER. Kathya Rich LPN [facility]11-06-2024 Telephone encounter Note* Telephone Encounter - Leilani Nayak - 06/03/2024 10:55 AM EST I called and spoke to patient and scheduled her for first open appointment which was 06/15/24 with Please confirm that this appointment is ok and if anything else is needed prior to visit Leilani Lu [facility]11-06-2024 Telephone encounter Note* Telephone Encounter - Amber Rock - 06/03/2024 10:38 AM EST Patient calling in wanting to schedule her consult to hematology. Please review and advise. Amber Rock June 03, 2024 10:38 AM [facility]11-01-2024 Note* Addendum Note - Sarah Pearson PA-C - 05/29/2024 4:23 PM EDTAddended by: SARAH PEARSON on: 05/29/2024 04:23 PM Modules accepted: Orders [facility]11-01-2024 Miscellaneous Notes* Addendum Note - Sarah Pearson [...] she received Iron IV through heme/onc in [facility] several years ago. Relayed protein enriched [...] start taking at least 1 tablet daily svwi-npq-zwmussh. Her proteinlevels are also low, increase protein in diet. Sarah Pearson PA-C 05/29/24 documented in this encounterCrystal Clinic Orthopedic Center11-01-2024 Telephone encounter Note * Telephone Encounter - Sarah Pearson PA-C - 05/29/2024 4:21 PM EDT If she can remember who she saw- I recommend reaching back out for an appt. Consult placed Sarah Pearson PA-C [facility]11-01-2024 Telephone encounter Note* Telephone Encounter - Candace Alvarenga MA - 05/29/2024 4:09 PM EDT Called patient and relayed message. She voiced understanding. Patient states she is unable to take Iron tablets. She states it causes vomiting. She states she received Iron IV through heme/onc in [facility] several years ago. Relayed protein enriched foods to patient. [facility]11-01-[facility]24 Telephone encounter Note* Telephone Encounter - Candace [...] start taking at least 1 tablet daily nkqh-blq-pienlbc. Her proteinlevels are also low, increase protein in diet. Sarah Pearson PA-C 05/29/24 [facility]10-18-2024 NoteHNO ID: [id number] Author: SARAH PEARSON PA-C Service: ? Author Type: Physician Forestry Adviser Type: Progress Notes Filed: 05/15/2024 16:53 Note Text: [facility] Arthritis and Rheumatology Sarah Pearson PA-C [place]- [address] [place] [address] [place]- [address] [place] [address] [place]- [address] [place] [address] ; RHEUMATOLOGY PROGRESS NOTE VIRTUAL VISIT PROGRESS NOTE This is a virtual visit using HIPAA compliant video platform. It required patient-provider interaction for the medical decision making as documented below using [employer]. I have communicated my name and active licensure. The patient?s identity and physical location were verified at the time of this visit. Either the patient or their legal insurance healthcare representative has been informed of the risks [...] replaced 01/23/2023. Doing well. Dr. Odalis Cooney [facility] No longer seeing pain mgmt- not [...] 01/30/2019 Carotid artery stenosis bilateral- [facility] COPD (chronic obstructive pulmonary disease) (HCC) [...] Ischemic Heart Disease Father age 42 from [place] Hypertension Sister other (Other) Brother 18 MVA [...] Never Current Outpatient Medications (more content not included)...[facility]10-18-2024 History of Present illness Narrative* Sarah Pearson PA-C - 05/15/2024 4:26 PM EDT Images from the original note were not included. [facility] Arthritis and Rheumatology Sarah Pearson PA-C [place]- [address] [place] [address] [place]- [address] [place] [address] [place]- [address] [place] [address] ; RHEUMATOLOGY PROGRESS NOTE VIRTUAL VISIT PROGRESS NOTE This is a virtual visit using HIPAA compliant video platform. It required patient-provider interaction for the medical decision making as documented below using [employer]. I have communicated my name and active licensure. The patient s identity and physical location wereverified at the time of this visit. Either the patient or their legal insurance healthcare representative has been informed of the risks [...] replaced 01/23/2023. Doing well. Dr. Odalis Cooney [facility] No longer seeing pain mgmt- not [...] 01/30/2019 Carotid artery stenosis bilateral- [facility] COPD (chronic obstructive pulmonary disease) (HCC) [...] Ischemic Heart Disease Father age 42 from [place] Hypert[place] Sister other (Other) Brother 18 MVA [...] Take 80 mg by mouth once daily. bgqzbd-qzoopono-lpfbwnv (CREON 36) 36,000-114,000- 180,000 unit delayed release [...] which included preparing to see the patient, uvwy-pz-qeuc patient care, completing clinical documentation, obtaining and/or reviewing separately obtained history, performing a medically appropriate examination, counseling and educating the pat ient/family/caregiver, ordering medications, tests, or procedures, independently interpreting results (not separately reported), communicating results to the patient/family/caregiver, and care coordination (not separately reported). documented in this encounterCrystal Clinic Orthopedic Center06-04-2024 Note* Addendum Note - Jennifer Arias MD - 12/31/2023 3:25 PM EDTAddended by: JENNIFER ARIAS on: 12/31/2023 03:25 PM Modules accepted: Orders [facility]06-04-2024 Miscellaneous Notes* Addendum Note - Jennifer Arias MD - 12/31/2023 3:25 PM EDTAddended by: JENNIFER ARIAS on: 12/31/2023 03:25 PM Modules accepted: Orders * Telephone Encounter - Rosio Buck LPN - 12/31/2023 3:10 PM EDT Patient left vm stating she contacted her pharmacy to get a refill on Arava and they told her the prescription was cancelled. Rosio Buck LPN documented in this encounterCrystal Clinic Orthopedic Center06-04-2024 Telephone encounter Note * Telephone Encounter - Rosio Buck LPN - 12/31/2023 3:10 PM EDT Patient left vm stating she contacted her pharmacy to get a refill on Arava and they told her the prescription was cancelled. Rosio Buck LPN [facility]04-25-2024 History of Present illness Narrative* Jennifer Arias [...] replaced 01/23/2023. Doing well. Dr. Odalis Cooney [facility] No longer seeing pain mgmt- not [...] 01/30/2019 Carotid artery stenosis bilateral- [facility] COPD (chronic obstructive pulmonary disease) (HCC) [...] Ischemic Heart Disease Father age 42 from [place] Hypert[place] Sister other (Other) Brother 18 MVA [...] Take 80 mg by mouth once daily. jmnhrn-sgrzwxqz-cyceson (CREON 36) 36,000-114,000- 180,000 unit delayed release [...] visit. Jennifer Arias MD documented in this encounterCrystal Clinic Orthopedic Center03-23-2024 Discharge summary Author Pawel Cason [facility] October 19, 2023 7:49pm Note Date/Time October 19, 2023 4:2 0pm [facility] Medical Records Department [address] [place] [address] Emergency Department Summary 10/19/23 MR#: [id number] Acct: [id number] Name: MARIMAR WANG Neela Rep #:[id number] 2 : 1960 63 From: Pawel Cason [...] Prior similar symptoms: No Recent Ill[facility] Medical History Acute bacterial [...] HEALTH 11/13/17 [History Last Taken 11/12/17] peg 522-dxunwuvcohfi-iylxhvgx 1 %-0.2 %-0.2 % eye drops (Dry [...] #60 tabs 08/05/23 [Rx Last Taken Unknown] mbpydr-evxbkmqn-rwtibnz 36,000-114,000-180,000 unit capsule,delay rel (Creon) See Rx [...] Provider: Julio Arriaga NP Referrals: Julio Arriaga [employer] PRINTER, CAR[employer] PRINTER-C [Primary Care Provider] - Disposition Disposition: Home, Self Care What to do if you have Problems For any increased pain, shortness of breath, bleeding, nausea or vomiting, chestpain, or any unexpected problems, contact your Primary Care Provider. Call [facility] ([phone]) or report to the closest Emergency Room. Call 911 if necessary. 10/19/231948 <Electronically signed by Pawel Cason MD> Cosigner Signature (if applicable): CC: CARBON PRINTER-C Julio Arriaga ~ Signed [facility] Work Phone: 1(342) 275-231103-22-2024 Miscellaneous Notes* Telephone Encounter - Roxane Reilly MA - 10/18/2023 10:29 AM EDT Pharmacy faxed requesting the following refill. Requested Prescriptions Pending Prescriptions Disp Refills leflunomide (ARAVA) 20 mg tablet [Pharmacy Med Name: LEFLUNOMIDE 20 MG TABLET] 30 tablet 2 Sig: take 1 tablet by mouth once daily Patient last appointment: 05/21/2023 Next Appointment: 11/21/2023 Patient Phone numbers: [phone] (home) Request is for script(s) to be escript to pharmacy. Roxane Reilly MA documented in this encounterCrystal Clinic Orthopedic Center02-19-2024 Miscellaneous Notes* Telephone Encounter - Irma Mensah - 09/16/2023 3:22 PM EST [place] [place] Pending [id number] [facility]/Portal Irma Joya, Care Transition Mgr documented in this encounterCrystal Clinic Orthopedic Center10-24-2023 History of Present illness Narrative* Sarah Pearson PA-C - 05/21/2023 11:19 AM EDT Images from the original note were not included. [facility] Arthritis and Rheumatology Sarah Pearson [address] [place] [address] RHEUMATOLOGY PROGRESS NOTE HPI: Marimar Wang is [...] replaced 01/23/2023. Doing well. Dr. Odalis Cooney [facility] No longer seeing pain mgmt- not [...] 01/30/2019 Carotid artery stenosis bilateral- [facility] COPD (chronic obstructive pulmonary disease) (HCC) [...] Ischemic Heart Disease Father age 42 from [place] Hypert[place] Sister other (Other) Brother 18 MVA [...] visit. Sarah Pearson PA-C documented in this encounterCrystal Clinic Orthopedic Center10-02-2023 Miscellaneous Notes* Telephone Encounter - Candace Alvarenga [...] Sarah Pearson PA-C 04/29/23 documented in this encounterCrystal Clinic Orthopedic Center09-18-2023 Miscellaneous Notes* Telephone Encounter - Rosio Buck LPN - 04/15/2023 12:55 PM EDT Pharmacy requesting the following refill. Patient needs appt Requested Prescriptions Pending Prescriptions Disp Refills leflunomide (ARAVA) 20 mg tablet [Pharmacy Med Name: LEFLUNOMIDE 20 MG TABLET] 30 tablet 2 Sig: take 1 tablet by mouth once daily Patient last appointment: 10/18/2022 Next Appointment: Visit date not found Patient Phone numbers: [phone] (home) Request is for script(s) to be escript to pharmacy. [id number] [place] [address] [place] [phone] [address] Rosio Buck LPN documented in this encounterCrystal Clinic Orthopedic Center06-29-2023 Discharge summary [facility] January 24, 2023 8:57am Note Date/Time January 24, 2023 8:57 am [facility] Medical Records Department [address] [place] [address] Discharge Summary 01/24/23 0855 MR#: [id number] Acct: [id number] Name: MARIMAR WANG Rep #:[id number] : 1960 62 From: Michael Rawls DO PCP: SINAI Arriola Status:ADM I N Location: [place] [address] Providers Date of Admission: 01/23/23 Primary Care [...] mg PO QHS MENTAL HEALTH 11/13/17 peg 021-sojobmgaudlz-ogaoivir 1 %-0.2 %-0.2 % eye drops (Dry [...] prior 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 Michael Rawls DO~ Signed [facility] Work Phone: 1(175) 483-910006-29-2023 Discharge summary Author Michael Rawls [facility] January 24, 2023 8:55am Note Date/Time January 24, 2023 8:40 am [facility] Medical Records Department [address] [place] [address] Instructions for Home/Discharge Instructions 01/24/23 0839 MR#: [id number] Acct: [id number] Name: MARIMAR WANG Rep #:[id number] : 1960 62 From: Michael Rawls [...] Referrals / Follow Up: Julio Arriaga NP, CARBON PRINTER-C [Primary Care Provider] - 01/24/2355<Electronically signed by [facility] CC: SINAI Arriaga ~ Signed [facility] Work Phone: 1(856) 606-602806-29-2023 Progress note Author [facility] January 24, 2023 8:39am Note Date/Time January 24, 2023 8:39 am [facility] Medical Records Department [address] [place] [address] Progress Note - Orthopedic 01/24/2337 MR#: [id number] Acct: [id number] Name: MARIMAR WANG Rep #:[id number] 1 : 1960 62 From: Michael Rawls DO PCP: Julio Arriaga CARBON PRINTER-C Status:ADM I N Location: [place]3 [id number] Subjective Subjective Seen and examined. Doing well. [...] GFR (MDRD) Non-Af 84, BUN/Creatinine Ratio 12.1, Ohhuwoh256 H, Calcium 7.8 L Micro: Microbiology 01/11/23 [...] Cosigner Signature (if applicable): CC: ~ Signed [facility] Work Phone: [phone]) 899-746706-28-2023 Procedure [facility] 01-23-2023 History and physical note Author Michael [facility] January 23, 2023 7:40am Note Date/Time January 23, 2023 7:40 am [facility] Medical Records Department [address] [place] [address] History & Physical Exam 01/23/23 0739 MR#: [id number] Acct: [id number] Name: MARIMAR WANG Rep #:[id number] 2 : 1960 62 From: Michael Rawls DO PCP: SINAI Arriola Status:PRE I N Location: [facility] History and Physical Date of Admission: 01/23/23 [facility] [address] [place] [address] 5 [place] [address] OFFICE VISIT Date of Service: 12/17/22 MR#: [id number] Acct: [id number] Name: MARIMAR WANG Rep #: [id number] : 1960 Provider: Dr. Michael Rawls DO Age/Sex: 62/F Location: [facility].C[place]EL[facility] Status: Signed Intake Intake Visit Reasons: RIGHT [...] MENTAL HEALTH 11/13/17 [History Confirmed 12/17/22] peg 719-ueqxdajhpuwn-lxnvmuwg 1 %-0.2 %-0.2 % eye drops (Dry [...] rheumatoid arthritis and corresponding medications, I did certified substance abuse counselor her off on this. She is [...] SINAI Arriaga; Dr. Michael Rawls DO~ Signed [facility] Work Phone: [phone]) 517-795606-07-2023 Miscellaneous Notes* Telephone Encounter - Elisabet Armenta Care Transition Mgr - 01/02/2023 11:43 AM EDT Zoledronic Acid 5mg PRECERT NOT REQUIRED [id number] 01.02.23 - 01.03.24 for 1 visit [facility] Dual/Portal lEisabet Armenta Care Transition Mgr documented in this encounterCrystal Clinic Orthopedic Center05-31-2023 Miscellaneous Notes* Telephone Encounter - Mary Vicente [...] 08? Mary Vicente LPN documented in this encounterCrystal Clinic Orthopedic Center05-30-2023 Miscellaneous Notes* Telephone Encounter - Candace Alvarenga MA - 12/25/2022 2:11 PM EDT Patient sent a [employer] message requesting the following refill. This prescription has already been requested on 12-25-[address] Arias. Duplicate request Requested Prescriptions Pending Prescriptions Disp Refills leflunomide (ARAVA) 20 mg tablet 30 tablet 2 Sig: Take 1 tablet by mouth once daily. Patient last appointment: 10/18/2022 Next Appointment: no future appointment is scheduled Patient Phone numbers: [phone] (home) Request is for script(s) to be escript to pharmacy. Candace Alvarenga MA documented in this encounterCrystal Clinic Orthopedic Center05-30-2023 Miscellaneous Notes* Telephone Encounter - Mary Vicente LPN - 12/25/2022 1:07 PM EDT Patient sent a [employer] message requesting the following refill. Requested Prescriptions Pending Prescriptions Disp Refills leflunomide (ARAVA) 20 mg tablet [Pharmacy Med Name: LEFLUNOMIDE 20 MG TABLET] 30 tablet 2 Sig: Take 1 tablet by mouth once daily. Patient last appointment: 10/18/2022 Next Appointment: Visit date not found Patient Phone numbers: [phone] (home) Request is for script(s) to be escript to pharmacy. Mary Vicente LPN documented in this encounterCrystal Clinic Orthopedic Center04-11-2023 Procedure [facility]04-11-2023 Procedure [facility]04-11-2023 Procedure [facility]04-11-2023 Procedure [facility]04-06-2023 Miscellaneous Notes* Telephone Encounter - Tracy Jerry LPN - 11/01/2022 8:45 AM EDT documented in this encounterCrystal Clinic Orthopedic Center03-29-2023 Miscellaneous Notes* Telephone Encounter - Elisabet Armenta Care Transition Mgr - 10/24/2022 11:51 AM EDT Ori APPROVED [id number] 09.06.22 - 09.06.23 [facility] Medicare Portal Elisabet Armenta Care Transition Mgr documented in this encounterCrystal Clinic Orthopedic Center03-23-2023 History of Present illness Narrative* Jennifer Arias [...] appointment with neurology scheduled for 08/08/2022 in [place]. Plans on possibly scheduling appointment with a [...] 01/30/2019 Carotid [facility] stenosis [facility]- [facility] COPD (chronic obstructive pulmonary disease) (HCC) [...] Ischemic Heart Disease Father age 42 from [place] Hypertension Sister other (Other) Brother 18 MVA [...] appointment with neurology scheduled for 08/08/2022 in [place]. Patient has erythematous scaling lesions noted to [...] visit. Jennifer Arias MD documented in this encounterCrystal Clinic Orthopedic Center03-22-2023 Procedure [facility]02-24-2023 Miscellaneous Notes* Telephone Encounter - Candace Alvarenga MA - 09/21/2022 11:00 AM EST Pharmacy faxed requesting the following refill. Requested Prescriptions Pending Prescriptions Disp Refills leflunomide (ARAVA) 20 mg tablet [Pharmacy Med Name: LEFLUNOMIDE 20 MG TABLET] 30 tablet 2 Sig: Take 1 tablet by mouth once daily. Patient last appointment: 06/26/2022 Next Appointment: 10/18/22 Patient Phone numbers: [phone] (home) Request is for script(s) to be escript to pharmacy. Candace Alvarenga MA documented in this encounterCrystal Clinic Orthopedic Center02-10-2023 Miscellaneous Notes* Telephone Encounter - Sarah Vital RN - 09/07/2022 3:41 PM EST Form faxed back to [facility] today by providers nurse. * Telephone Encounter - Kari Calderon LPN - 09/05/2022 4:23 PM EST rec'd from onbase. * Telephone Encounter - Sarah Vital RN - 09/05/2022 4:07 PM EST Radha with [employer] for [facility] called in and reports they have faxed over the Medical Attestation forms again to fax # [phone]. She states they just need a signature and then faxed back to fax # [phone]. documented in this encounterCrystal Clinic Orthopedic Center02-09-2023 Consult note Author Acute Doctor [facility] September 06, 2022 10:33am Note Date/Time September 06, 2022 1 0:34am [facility] Medical Records Department [address] [place] [address] Telemedicine Confirmation Receipt 09/06/22 MR#: [id number] Acct: [id number] Name: MARIMAR WANG Rep #:[id number] : 1960 62 From: Acute Doctor PCP: SINAI Arriola Status:REG C LI [facility] has confirmed receipt of a request for visit. This document confirms receipt of the order initiating the consult. To find the results of the consultation, please view the patient's reports for the scanned Telemed Consult. [facility] Work Phone: [phone]) 484-678101-17-2023 Miscellaneous Notes* Telephone Encounter - Mandy Buck [...] advise. Mandy Buck LPN documented in this encounterCrystal Clinic Orthopedic Center01-05-2023 Instructions* Patient Instructions* Leilani Colmenares APRN.TRACY - 08/02/2022 11:12 AM EST Activity as tolerated Use Ice and/or heat as tolerated as needed documented in this encounterCrystal Clinic Orthopedic Center01-05-2023 History of Present illness Narrative* Elisabet Landin [...] not included. [facility] Today's Date: 08/01/2022 Last Visit: 02/01/22 [...] suspiciousactivity was identified. 08/01/2022 by Leilani Colmenares APRN.FOLDER TIER Allergies: ALLERGIES Allergen Reactions Nsaids (Non-Steroid* Anaphylaxis [...] and assume there are 5 lumbar-type vertebrae. Pre Owned Sales Manager: SABINO Transcribe Date/Time: Jul 05 2021 4:28P [...] mg BID (No RF needed today) Functional Jew: TENS Additional Studies: Referrals: Additional: Consider SPRINT [...] decision making from today's date. Leilani Colmenares APRN.FOLDER TIER Pain Management [facility] documented in this encounterCrystal Clinic Orthopedic Center12-13-2022 History of Present illness Narrative* Jorge Alberto [...] 10, 2022 12:29 PM documented in this encounterCrystal Clinic Orthopedic Center11-29-2022 History of Present illness Narrative* RT Derrick(R) [...] 26, 2022 3:18 PM documented in this encounterCrystal Clinic Orthopedic Center11-29-2022 Instructions* Patient Instructions* Sarah Pearson PA-C - 06/26/2022 2:41 PM EST Check schedule- schedule [facility] infusion soon Continue Arava daily Check vit D with infusion- will decide if need to take Call cardiology and neurology for appt Schedule bone density [phone] Left hip XR today downstairs documented in this encounterCrystal [facility] Center11-29-2022 History of Present illness Narrative* Sarah Pearson PA-C - 06/26/2022 1:52 PM EST Images from the original note were not included. [facility] Arthritis and Rheumatology Sarah Pearson [address] [facility] [address] [id number] RHEUMATOLOGY PROGRESS NOTE HPI: Marimar Wang is [...] appointment with neurology scheduled for 08/08/2022 in [place]. Plans on possibly scheduling appointment with a [...] 01/30/2019 Carotid artery stenosis bilateral- [facility] COPD (chronic obstructive pulmonary disease) (HCC) [...] Ischemic Heart Disease Father age 42 from [place] Hypertension Sister other (Other) Brother 18 MVA [...] appointment with neurology scheduled for 08/08/2022 in [place]. Patient has erythematous scaling lesions noted to [...] and neurology for appt Schedule bone density [phone] Left hip XR today downstairs CY Meredith-S2 TEACHING PROVIDER (Physician/PA/RAILROAD EMERGENCY SERVICES MANAGER) NOTE OF PERSONAL INVOLVEMENT IN CARE: I have personally seen and examined the patient and performed the medical decision-making components. I have reviewed the Physician Forestry Adviser (PA) Student's documentation and verified the findings inthe note as written. Any additions or changes are noted in bold/italics. Signature: Sarah Pearson Date: 06/26/2022 Time: 4:29 PM JEN CruzC documented in this encounterCrystal Clinic Orthopedic Center11-18-2022 Miscellaneous Notes* Telephone Encounter - Irma Lu [...] Visit date not found Patient Phone numbers: [phone] (home) Request is for script(s) to be escript to pharmacy. Jena Fish MA documented in this encounterCrystal Clinic Orthopedic Center11-15-2022 Miscellaneous Notes* Telephone Encounter - Jacek Mitchell MD - 06/12/2022 1:48 PM EST Lyjeff block approved, has follow-up in Jul. Jacek Mitchell III, MD, SUJATHA * Telephone Encounter - Santa Murray LPN - 06/12/2022 9:06 AM EST [facility] Telephone Medication Refill Request Name/dose: pregabalin (LYRICA) 150 mg capsule Amount dispensed monthly: 60 Date last filled: 06-04-22 Date last seen in office: 02-01-22 (LEILANI) Provider: Jacek Mitchell MD Next scheduled visit: 08-09-22 Pharmacy: [id number] [place] [address] [address] - [phone] [address] Santa Murray LPN documented in this encounterCrystal Clinic Orthopedic Center11-14-2022 Miscellaneous Notes* Telephone Encounter - Tracy Jerry [...] you. Tracy Jerry LPN documented in this encounterCrystal Clinic Orthopedic Center10-20-2022 Instructions* Patient Instructions* Carol Mathews APRN.TRACY - 05/17/2022 11:50 AM EDT FACT SHEET FOR PATIENTS, PARENTS, AND CAREGIVERS EMERGENCY USE AUTHORIZATION (EUA) OF PAXLOVID FOR CORONAVIRUS DISEASE 2019 (COVID-19) You are being given this Fact Sheet because your healthcare provider believes it is necessary to provide you with PAXLOVID for the treatment of azxj-uv-vctutxod coronavirus disease (COVID-19) caused by the SARS-CoV-2 [...] virus. COVID-19 illnesses have ranged from very wimz-bu-nijkwx, including illness resulting in . While information [...] is an investigational medicine used to treat oekw-gv-hfkqbmov COVID-19 in adults and children [12 years [...] of using PAXLOVID to treat people with dwau-vd-gbmjivij COVID-19. The FDA has authorized the emergency use of PAXLOVID for the treatment of tjdr-tq-zhmzjaxf COVID-19in adults and children [12 years of [...] the medicines you take, including prescription and ifpc-gju-wxdpamm medicines, vitamins, and herbal supplements. Some medicines [...] (remdesivir) is FDA-approved for the treatment of qhaj-qh-hhjqktwd COVID-19 in certain adults and children. Talk with your doctor to see if Veklury is appropriate for you. Like PAXLOVID, FDA may also allow for the emergency use of other medicines to treat people with COVID-19. Go to https://www.fda.gov/beecepyqg-hkmklesogzty-jtowscgcdfl/uph-zynsf-jqnwtbglru-and- policy-framework/iltuhozsn-slz-jgicbzuvziysh for information on the emergency use of [...] I am or ? There is non categorical preschool teacher treating women or mothers with PAXLOVID. For [...] to FDA MedWatch at www.fda.gov/medwatch or call 5-876-JDK7919 or you can reportside effects to [employer]. at the contact information provided below. Website Fax number Telephone number Kairos How should I store PAXLOVID? Store PAXLOVID [...] (EUA). The EUA is supported by a [place]ora of Health and Human Service (HHS) declaration that circumstances exist to justify the emergency use of drugs and biological productsduring the COVID-19 pandemic. PAXLOVID for the treatment of lybg-ol-bdgyoinp COVID-19 in adults and children [12 years [...] telephone number provided below. Website Telephone number wwwMak[employer] (7-946-Z31-PACK) You can also go to www.Perficient.CoachLogix or call for more information. Pfizer Distributed by [employer] [place] [address] LAB-1494-2.1 Revised: 13 October 2021 FACT SHEET FOR PATIENTS, PARENTS, AND CAREGIVERS EMERGENCY USE AUTHORIZATION (EUA) OF PAXLOVID FOR CORONAVIRUS DISEASE 2019 (COVID-19) You are being given this Fact Sheet because your healthcare provider believes it is necessary to provide you with PAXLOVID for the treatment of ytjl-xd-unvgmfet coronavirus disease (COVID-19) caused by the SARS-CoV-2 [...] virus. COVID-19 illnesses have ranged from very uiej-ks-hyydsy, including illness resulting in . While information [...] is an investigational medicine used to treat ltgo-ko-ryjjeyot COVID-19 in adults and children [12 years [...] of using PAXLOVID to treat people with wulk-jt-xnyiatwh COVID-19. The FDA has authorized the emergency use of PAXLOVID for the treatment of lgug-oq-stfheekb COVID-19in adults and children [12 years of [...] the medicines you take, including prescription and efqy-ptg-oiltird medicines, vitamins, and herbal supplements. Some medicines [...] (remdesivir) is FDA-approved for the treatment of zmlu-ng-gddfqorw COVID-19 in certain adults and children. Talk with your doctor to see if Veklury is appropriate for you. Like PAXLOVID, FDA may also allow for the emergency use of other medicines to treat people with COVID-19. Go to https://www.fda.gov/gzrhxsadf-mbenijpfctdx-gfowlmlnbdz/cwt-akams-khtlpebthg-and- policy-framework/gxptskkmh-rgb-pggrvzjpdtvmd for information on the emergency use of [...] I am or ? There is non categorical preschool teacher treating women or mothers with PAXLOVID. For [...] not go away. Report side effects to [employer] at www.fda.gov/medwatch or call 1-350-OMQ0961 or you can reportside effects to [employer] at the contact information provided below. Website Fax number Telephone number Kairos How should I store PAXLOVID? Store PAXLOVID [...] (EUA). The EUA is supported by a Flora of Health and Human Service (HHS) declaration that circumstances exist to justify the emergency use of drugs and biological productsduring the COVID-19 pandemic. PAXLOVID for the treatment of vifk-to-uaflrfue COVID-19 in adults and children [12 years [...] telephone number provided below. Website Telephone number [employer] (7-799-D77-XSBT) You can also go to www.Arbsource or call for more information. Pfizer Distributed by [employer] [place] [address] LAB-1494-2.1 Revised: 13 October 2021 documented in this encounterCrystal Clinic Orthopedic Center10-20-2022 History of Present illness Narrative* Carol Mathews APRN.CNP - 05/17/2022 11:42 AM EDT This Team Access Model visit is a virtual encounter. It required patient- provider interaction for the medical decision making as documented below. Patient agrees to the visit: Yes Patient Location: [place] CC: Patient presents with: Covid Test Result [...] 01/30/2019 Carotid artery stenosis bilateral- [facility] COPD (chronic obstructive pulmonary disease) (HCC) [...] Ischemic Heart Disease Father age 42 from [place] Hypert[place] Sister other (Other) Brother 18 MVA [...] simvastatin while on paxlovid and discuss with rapid transit operator if she should be holding any of [...] APRN.TRACY Nirmatrelvir/Ritonavir (Paxlovid) Eligibility and Patient Discussion [facility] Formulary Restriction Criteria: Adult outpatients 18 years [...] 17, 2022 11:52 AM documented in this encounterCrystal Clinic Orthopedic Center10-20-2022 Miscellaneous Notes* Telephone Encounter - Betsey Mccabe LPN - 05/17/2022 9:05 AM EDT Patient returned call and went over results, notes from [facility] provider with understanding. Scheduled patient with Carol Mathews CARBON PRINTER at 1140 am my chart virtual visit [...] or schedule a virtual visit online through [employer] onlineIf interested in COVID-19 therapies. Continue supportive therapies as discussed. Be seen in the emergency room if red flag symptoms develop such as chest pain shortness of breath or difficulty breathing. Geronimo Cadena APRN.CNP documented in this encounterCrystal Clinic Orthopedic Center10-19-2022 History of Present illness Narrative* Sarah De Luna APRN.FOLDER TIER - 05/16/2022 9:25 AM EDT SUBJECTIVE: Marimar [...] 01/30/2019 Carotid artery stenosis bilateral- [facility] COPD (chronic obstructive pulmonary disease) (HCC) [...] Ischemic Heart Disease Father age 42 from [place] Hypert[place] Sister other (Other) Brother 18 MVA [...] My Chart. MDM: Patient [facility] today for COVID and Influenza testing. [...] Sarah De Luna APRN.TRACY documented in this encounterCrystal Clinic Orthopedic Center09-22-2022 Miscellaneous Notes* Telephone Encounter - Roxane Reilly MA - 04/19/2022 3:35 PM EDT Pharmacy faxed requesting the following refill. Requested Prescriptions Pending Prescriptions Disp Refills cyclobenzaprine (FLEXERIL) 10 mg tablet 60 tablet 2 Sig: Take 1 tablet by mouth twice daily as needed. Patient last appointment: 09/02/2019 Next Appointment: 05/31/2022 Patient Phone numbers: [phone] (home) Request is for script(s) to be escript to pharmacy. Roxane Reilly MA documented in this encounterCrystal Clinic Orthopedic Center09-22-2022 Miscellaneous Notes* Telephone Encounter - Roxane Reilly MA - 04/19/2022 3:34 PM EDT Pharmacy faxed requesting the following refill. Requested Prescriptions Pending Prescriptions Disp Refills cyclobenzaprine (FLEXERIL) 10 mg tablet 60 tablet 2 Sig: Take 1 tablet by mouth twice daily as needed. Patient last appointment: 09/02/2019 Next Appointment: 04/18/2022 Patient Phone numbers: [phone] (home) Request is for script(s) to be escript to pharmacy. Roxane Reilly MA documented in this encounterCrystal Clinic Orthopedic Center09-01-2022 Note ORIGINAL EXAMINATION: WHOLE BODY BONE SCAN03/29/2022 [...] incidental findings as described above. Interpreted by: Boal Ridley DO Preliminary Report By: Bola Ridley DO Electronically signed By Bola Ridley DO Dictated Date: 03/29/2022 3:03:34 PM Prelim Date: 03/29/2022 3:10:43 PM Sign Date: 03/29/2022 3:10:43 PM Ordering Provider: [facility]09-01-2022 Note ORIGINAL EXAMINATION: WHOLE BODY BONE SCAN03/29/2022 [...] Sign Date: 03/29/2022 3:10:43 PM Ordering Provider: [facility]08-30-2022 Miscellaneous Notes* Telephone Encounter - Sarah Benedict - 03/27/2022 3:30 PM EDT pATIENTS 05/17/2022 APPOINTMENT NEEDS RESCHEDULED DUE TO PROVIDER BEING OUT OF OFFICE. lEFT MESSAGEFOR PATIENT TO GET RESCHEDULED. documented in this encounterCrystal Clinic Orthopedic Center08-25-2022 Miscellaneous Notes* Telephone Encounter - Sarah Benedict - 03/22/2022 9:16 AM EDT Canceled appointment for patient, left message that she needs to call back to reschedule. * Telephone Encounter - Sarah Benedict - 03/22/2022 9:16 AM EDT ----- Message from Shelby Almonte sent at 03/22/2022 8:34 AM EDT ----- Regarding: Spine/Leilani Colmenares(FOLDER TIER)/Missed Provider Call Subject Line Format: Medicine / [...] (Caregivers Name): na If No - Which [facility] Leadership Learning And Development Intern Did You Speak With Regarding This Patient: na Was an appointment scheduled (Y/N): N Reason patient was requesting visit (RFV/signs and symptoms/diagnosis) : Missed Provider Auto Glass Technician calling if other than patient: Patient Return call to if other than patient: na Best contact number: [phone] Thank you, Shelby Almonte March 22, 2022 8:34 AM documented in this encounterCrystal Clinic Orthopedic Center08-15-2022 Miscellaneous Notes* Telephone Encounter - Rosio Buck LPN - 03/12/2022 9:49 AM EDT Pharmacy requesting the following refill. Requested Prescriptions Pending Prescriptions Disp Refills leflunomide (ARAVA) 20 mg tablet [Pharmacy Med Name: LEFLUNOMIDE 20 MG TABLET] 30 tablet 2 Sig: take 1 tablet by mouth once daily Patient last appointment: 01/30/2022 Michel VV Next Appointment: 05/31/2022 Emeka Patient Phone numbers: [phone] (home) Request is for script(s) to be escript to pharmacy. [id number] [place] [address] [phone] [id number] Rosio Buck LPN documented in this encounterCrystal Clinic Orthopedic Center07-07-2022 Miscellaneous Notes* Telephone Encounter - Taylor Quintanilla - 02/01/2022 10:27 AM EDT I have attempted to contact this patient by phone, Left brief message on cell voicemail stating that our next appointment that we have in [place] is 02/28/22 if this is okay for her to give me a call backat [phone] EXT [phone] Taylor Quintanilla documented in this encounterCrystal Clinic Orthopedic Center07-07-2022 Miscellaneous Notes* Telephone Encounter - Anyi Padron [...] COVID vaccine.) Anyi Padron documented in this encounterCrystal Clinic Orthopedic Center07-07-2022 Instructions* Patient Instructions* Leilani Colmenares APRN.CNP - 02/01/2022 9:56 AM EDT Activity as tolerated Use Ice and/or heat as tolerated as needed documented in this encounterCrystal Clinic Orthopedic Center07-07-2022 History of Present illness Narrative* Leilani Colmenares APRN.CNP - 02/01/2022 9:36 AM EDT Images from the original note were not included. [facility] [place] [facility] Today's Date: 02/01/2022 Last Visit: VV 07/26/21 with Chriss CASTANEDA Name: Marimar Wang : 1960 Purpose: [...] Comments - nothing is helping Pain Assessment (RN/INSTRUMENT ASSEMBLY SUPERVISOR) - - Current Pain Medications: o Opioids: [...] DATE OF EXAM: Jul 05 2021 3:27PM [facility] 0303 - MRI LUMBAR SPINE WO [...] and assume there are 5 lumbar-type vertebrae. [facility] Owned [facility] Transcribe Date/Time: Jul 05 2021 4:28P [...] suspiciousactivity was identified. 02/01/2022 by Leilani Colmenares APRN.FOLDER TIER Last Drug screen: Not Applicable appropriate. Risk Assessment: BHAAVNA-7: No flowsheet data found.(0-4) minimal anxiety, (5-9) [...] Reviewed and consistent, ORT low risk Functional Jew: No changes-continue current regimen Additional Studies: None [...] decision making from today's date. Leilani Colmenares APRN.FOLDER TIER Pain Management [facility] * Kailyn Denney MA - 02/01/2022 9:18 [...] patient is not nervous/anxious. documented in this encounterCrystal Clinic Orthopedic Center07-05-2022 History of Present illness Narrative* Sarah Pearson PA-C - 01/30/2022 12:54 PM EDT Images from the original note were not included. [facility] Arthritis and Rheumatology Sarah Pearson [address] [facility] [address] [id number] RHEUMATOLOGY PROGRESS NOTE VIRTUAL VISIT PROGRESS NOTE This is a virtual visit using [employer] video visit. It required patient-provider interaction for [...] 01/30/2019 Carotid artery stenosis bilateral- [facility] COPD (chronic obstructive pulmonary disease) (HCC) [...] 09/23/2017 normal, bxs negative Dr. Tapia [facility] IMG INTRALUMINAL ESOPHAGUS-ILEUM W/I&R 10/04/2017 Normal smallbowel [...] Ischemic Heart Disease Father age 42 from [place] Hypertension Sister other (Other) Brother 18 MVA [...] min Sarah Pearson PA-C documented in this encounterCrystal Clinic Orthopedic Center06-24-2022 Miscellaneous Notes* Telephone Encounter - Candace Alvarenga MA - 01/19/2022 8:30 AM EDT Pharmacy faxed requesting the following refill. Pending Prescriptions Disp Refills CYCLOBENZAPRINE 10 MG TABLET 60 tablet 2 Sig: take 1 tablet by mouth twice a day if needed SHAUN: Yes Patient last appointment: 10/31/21 Next Appointment: 01/30/2022 Patient Phone numbers: [phone] (home) Request is for script(s) to be escript to pharmacy. Candace Alvarenga MA documented in this encounterCrystal Clinic Orthopedic Center06-24-2022 Miscellaneous Notes* Telephone Encounter - Kiley Mejia LPN - 01/19/2022 7:41 AM EDT Patient phones requesting refills as follows: Pending Prescriptions Disp Refills ALBUTEROL SULFATE HFA 90 MCG/ACTUATION AEROSOL INHALER 1 Inhaler 0 Sig: Inhale 2 Puffs as instructed every 4 hours as needed for wheezing/shortness of breath. SHAUN: No DAAINA-10/06/21 Labs-11/02/21 NOV-02/06/22 Please review and advise. Kiley Mejia LPN documented in this encounterCrystal Clinic Orthopedic Center06-14-2022 Miscellaneous Notes* Telephone Encounter - Tracy Jerry [...] you. Tracy Jerry LPN documented in this encounterCrystal Clinic Orthopedic Center06-09-2022 Miscellaneous Notes* Telephone Encounter - Savanna Flowers Chief Executive Ppg - 01/04/2022 4:21 PM EDT [employer] APPROVED [id number] 01.25.2022 - 01.25.2023 per [facility] medicare Portal Savanna Flowers Chief Executive Ppg documented in this encounterCrystal Clinic Orthopedic Center04-25-2022 Miscellaneous Notes* Telephone Encounter - Kelly Blakely [...] you. Kelly Blakely LPN documented in this encounterCrystal Clinic Orthopedic Center04-25-2022 Miscellaneous Notes* Telephone Encounter - Kelly Blakely [...] you. Kelly Blakely LPN documented in this encounterCrystal Clinic Orthopedic Center01-31-2022 Hospital Discharge instructions Follow Up Care 08/28/2021 21:53:27 With:BELLA GILLESPIE MD, Orthopedic, Wound Care, Wound Care Service, Orthopedic, Wound Care, Wound Care Service, Orthopedic, Wound Care, Wound Care Service Address: [address] [place] [address] [address]- When:09/13/2021 08:30:00 Comments:Follow up With:Patient is discharged to [facility] skilled LOC. Please call report to [phone] Address:Unknown When:1-2 days With:SELENE PIERRE Address: [address] [place] [id number] Business (1) When:1-2 days [facility] 01-31-2022 Evaluation + Plan noteExtracted from: [...] 05:45:06 EST Preoperative hemoglobin 13.7, platelets 211 [facility] 10-04-2021 History of Present illness Narrative* [...] 01, 2021 2:03 PM documented in this encounterCrystal Clinic Orthopedic Center09-23-2021 Miscellaneous Notes* Telephone Encounter - Selene Pierre [...] none today. Last time had diarrhea was amcwotfqs-4-5 times last evening. 6. CONTACTS: 3 grandchildren there, but do not have symptoms. 7. CAUSE: Covid 8. HYDRATION STATUS: Dry mouth. Has weakness but can stand, cannot go very far. Last void this morning around 7:30 am. Urine was not dark. 9. OTHER SYMPTOMS: Had headache in the beginning, but they stopped. No dizziness. Not vomiting blood. 10. : No. Protocols used: [id number] documented in this encounterCrystal Clinic Orthopedic Center07-14-2021 History of Present illness Narrative* Teagan Marin [...] 08, 2021 10:52 AM documented in this encounterCrystal Clinic Orthopedic Center04-26-2021 History of Past illness Narrative* Problem Noted Date Resolved Date Sacroiliitis 11/21/2020 03/06/2021 Tear of medial meniscus of right knee 09/24/2019 10/02/2019 GI bleed 01/28/2019 07/31/2019 Absolute anemia 09/05/2017 02/06/2018 Overview: Added automatically from request for surgery [id number] Morbid obesity with BMI of 40.0-44.9, adult [...] 07/31/2019 Last Assessment & Plan: 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, she thinks it is from her RA, wants a wrist splint documented as of this encounter (statuses as of 11/01/2021) [facility]04-26-[facility] History of Past illness Narrative* Problem Noted Date Resolved Date Sacroiliitis 11/21/2020 03/06/2021 Tear of medial meniscus of right knee 09/24/2019 10/02/2019 GI bleed 01/28/2019 07/31/2019 Absolute anemia 09/05/2017 02/06/2018 Overview: Added automatically from request for surgery [id number] Morbid obesity with BMI of 40.0-44.9, adult [...] 07/31/2019 Last Assessment & Plan: 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, she thinks it is from her RA, wants a wrist splint documented as of this encounter (statuses as of 11/02/2021) [facility]04[facility] History of Past illness Narrative* Problem Noted Date Resolved Date Sacroiliitis 11/21/2020 03/06/2021 Tear of medial meniscus of right knee 09/24/2019 10/02/2019 GI bleed 01/28/2019 07/31/2019 Absolute anemia 09/05/2017 02/06/2018 Overview: Added automatically from request for surgery [id number] Morbid obesity with BMI of 40.0-44.9, adult [...] 07/31/2019 Last Assessment & Plan: 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, she thinks it is from her RA, wants a wrist splint documented as of this encounter (statuses as of 11/20/2021) [facility] History of Past illness Narrative* Problem Noted Date Resolved Date Sacroiliitis 11/21/2020 03/06/2021 Tear of medial meniscus of right knee 09/24/2019 10/02/2019 GI bleed 01/28/2019 07/31/2019 Absolute anemia 09/05/2017 02/06/2018 Overview: Added automatically from request for surgery [id number] Morbid obesity with BMI of 40.0-44.9, adult [...] 07/31/2019 Last Assessment & Plan: 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, she thinks it is from her RA, wants a wrist splint documented as of this encounter (statuses as of 11/20/2021) [facility] History of Past illness Narrative* Problem Noted Date Resolved Date Sacroiliitis 11/21/2020 03/06/2021 Tear of medial meniscus of right knee 09/24/2019 10/02/2019 GI bleed 01/28/2019 07/31/2019 Absolute anemia 09/05/2017 02/06/2018 Overview: Added automatically from request for surgery [id number] Morbid obesity with BMI of 40.0-44.9, adult [...] 07/31/2019 Last Assessment & Plan: 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, she thinks it is from her RA, wants a wrist splint documented as of this encounter (statuses as of 11/21/2021) [facility] History of Past illness Narrative* Problem Noted Date Resolved Date Sacroiliitis 11/21/2020 03/06/2021 Tear of medial meniscus of right knee 09/24/2019 10/02/2019 GI bleed 01/28/2019 07/31/2019 Absolute anemia 09/05/2017 02/06/2018 Overview: Added automatically from request for surgery [id number] Morbid obesity with BMI of 40.0-44.9, adult [...] 07/31/2019 Last Assessment & Plan: 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, she thinks it is from her RA, wants a wrist splint documented as of this encounter (statuses as of 11/27/2021) [facility] History of Past illness Narrative* Problem Noted Date Resolved Date Sacroiliitis 11/21/2020 03/06/2021 Tear of medial meniscus of right knee 09/24/2019 10/02/2019 GI bleed 01/28/2019 07/31/2019 Absolute anemia 09/05/2017 02/06/2018 Overview: Added automatically from request for surgery [id number] Morbid obesity with BMI of 40.0-44.9, adult [...] 07/31/2019 Last Assessment & Plan: 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, she thinks it is from her RA, wants a wrist splint documented as of this encounter (statuses as of 12/22/2021) [facility] History of Past illness Narrative* Problem Noted Date Resolved Date Sacroiliitis 11/21/2020 03/06/2021 Tear of medial meniscus of right knee 09/24/2019 10/02/2019 GI bleed 01/28/2019 07/31/2019 Absolute anemia 09/05/2017 02/06/2018 Overview: Added automatically from request for surgery [id number] Morbid obesity with BMI of 40.0-44.9, adult [...] 07/31/2019 Last Assessment & Plan: 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, she thinks it is from her RA, wants a wrist splint documented as of this encounter (statuses as of 12/28/2021) [facility] History of Past illness Narrative* Problem Noted Date Resolved Date Sacroiliitis 11/21/2020 03/06/2021 Tear of medial meniscus of right knee 09/24/2019 10/02/2019 GI bleed 01/28/2019 07/31/2019 Absolute anemia 09/05/2017 02/06/2018 Overview: Added automatically from request for surgery [id number] Morbid obesity with BMI of 40.0-44.9, adult [...] 07/31/2019 Last Assessment & Plan: 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, she thinks it is from her RA, wants a wrist splint documented as of this encounter (statuses as of 01/04/2022) [facility] History of Past illness Narrative* Problem Noted Date Resolved Date Sacroiliitis 11/21/2020 03/06/2021 Tear of medial meniscus of right knee 09/24/2019 10/02/2019 GI bleed 01/28/2019 07/31/2019 Absolute anemia 09/05/2017 02/06/2018 Overview: Added automatically from request for surgery [id number] Morbid obesity with BMI of 40.0-44.9, adult [...] 07/31/2019 Last Assessment & Plan: 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, she thinks it is from her RA, wants a wrist splint documented as of this encounter (statuses as of 01/10/2022) [facility] History of Past illness Narrative* Problem Noted Date Resolved Date Sacroiliitis 11/21/2020 03/06/2021 Tear of medial meniscus of right knee 09/24/2019 10/02/2019 GI bleed 01/28/2019 07/31/2019 Absolute anemia 09/05/2017 02/06/2018 Overview: Added automatically from request for surgery [id number] Morbid obesity with BMI of 40.0-44.9, adult [...] 07/31/2019 Last Assessment & Plan: 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, she thinks it is from her RA, wants a wrist splint documented as of this encounter (statuses as of 01/19/2022) [facility] History of Past illness Narrative* Problem Noted Date Resolved Date Sacroiliitis 11/21/2020 03/06/2021 Tear of medial meniscus of right knee 09/24/2019 10/02/2019 GI bleed 01/28/2019 07/31/2019 Absolute anemia 09/05/2017 02/06/2018 Overview: Added automatically from request for surgery [id number] Morbid obesity with BMI of 40.0-44.9, adult [...] 07/31/2019 Last Assessment & Plan: 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, she thinks it is from her RA, wants a wrist splint documented as of this encounter (statuses as of 01/23/2022) [facility] History of Past illness Narrative* Problem Noted Date Resolved Date Sacroiliitis 11/21/2020 03/06/2021 Tear of medial meniscus of right knee 09/24/2019 10/02/2019 GI bleed 01/28/2019 07/31/2019 Absolute anemia 09/05/2017 02/06/2018 Overview: Added automatically from request for surgery [id number] Morbid obesity with BMI of 40.0-44.9, adult [...] 07/31/2019 Last Assessment & Plan: 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, she thinks it is from her RA, wants a wrist splint documented as of this encounter (statuses as of 01/26/2022) [facility] History of Past illness Narrative* Problem Noted Date Resolved Date Sacroiliitis 11/21/2020 03/06/2021 Tear of medial meniscus of right knee 09/24/2019 10/02/2019 GI bleed 01/28/2019 07/31/2019 Absolute anemia 09/05/2017 02/06/2018 Overview: Added automatically from request for surgery [id number] Morbid obesity with BMI of 40.0-44.9, adult [...] 07/31/2019 Last Assessment & Plan: 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, she thinks it is from her RA, wants a wrist splint documented as of this encounter (statuses as of 01/29/2022) [facility] History of Past illness Narrative* Problem Noted Date Resolved Date Sacroiliitis 11/21/2020 03/06/2021 Tear of medial meniscus of right knee 09/24/2019 10/02/2019 GI bleed 01/28/2019 07/31/2019 Absolute anemia 09/05/2017 02/06/2018 Overview: Added automatically from request for surgery [id number] Morbid obesity with BMI of 40.0-44.9, adult [...] 07/31/2019 Last Assessment & Plan: 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, she thinks it is from her RA, wants a wrist splint documented as of this encounter (statuses as of 01/30/2022) [facility] History of Past illness Narrative* Problem Noted Date Resolved Date Sacroiliitis 11/21/2020 03/06/2021 Tear of medial meniscus of right knee 09/24/2019 10/02/2019 GI bleed 01/28/2019 07/31/2019 Absolute anemia 09/05/2017 02/06/2018 Overview: Added automatically from request for surgery [id number] Morbid obesity with BMI of 40.0-44.9, adult [...] 07/31/2019 Last Assessment & Plan: 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, she thinks it is from her RA, wants a wrist splint documented as of this encounter (statuses as of 02/01/2022) [facility] History of Past illness Narrative* Problem Noted Date Resolved Date Sacroiliitis 11/21/2020 03/06/2021 Tear of medial meniscus of right knee 09/24/2019 10/02/2019 GI bleed 01/28/2019 07/31/2019 Absolute anemia 09/05/2017 02/06/2018 Overview: Added automatically from request for surgery [id number] Morbid obesity with BMI of 40.0-44.9, adult [...] 07/31/2019 Last Assessment & Plan: 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, she thinks it is from her RA, wants a wrist splint documented as of this encounter (statuses as of 02/01/2022) [facility] History of Past illness Narrative* Problem Noted Date Resolved Date Sacroiliitis 11/21/2020 03/06/2021 Tear of medial meniscus of right knee 09/24/2019 10/02/2019 GI bleed 01/28/2019 07/31/2019 Absolute anemia 09/05/2017 02/06/2018 Overview: Added automatically from request for surgery [id number] Morbid obesity with BMI of 40.0-44.9, adult [...] 07/31/2019 Last Assessment & Plan: 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, she thinks it is from her RA, wants a wrist splint documented as of this encounter (statuses as of 02/01/2022) [facility] History of Past illness Narrative* Problem Noted Date Resolved Date Sacroiliitis 11/21/2020 03/06/2021 Tear of medial meniscus of right knee 09/24/2019 10/02/2019 GI bleed 01/28/2019 07/31/2019 Absolute anemia 09/05/2017 02/06/2018 Overview: Added automatically from request for surgery [id number] Morbid obesity with BMI of 40.0-44.9, adult [...] 07/31/2019 Last Assessment & Plan: 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, she thinks it is from her RA, wants a wrist splint documented as of this encounter (statuses as of 03/05/2022) [facility] History of Past illness Narrative* Problem Noted Date Resolved Date Sacroiliitis 11/21/2020 03/06/2021 Tear of medial meniscus of right knee 09/24/2019 10/02/2019 GI bleed 01/28/2019 07/31/2019 Absolute anemia 09/05/2017 02/06/2018 Overview: Added automatically from request for surgery [id number] Morbid obesity with BMI of 40.0-44.9, adult [...] 07/31/2019 Last Assessment & Plan: 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, she thinks it is from her RA, wants a wrist splint documented as of this encounter (statuses as of 03/12/2022) [facility] History of Past illness Narrative* Problem Noted Date Resolved Date Sacroiliitis 11/21/2020 03/06/2021 Tear of medial meniscus of right knee 09/24/2019 10/02/2019 GI bleed 01/28/2019 07/31/2019 Absolute anemia 09/05/2017 02/06/2018 Overview: Added automatically from request for surgery [id number] Morbid obesity with BMI of 40.0-44.9, adult [...] 07/31/2019 Last Assessment & Plan: 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, she thinks it is from her RA, wants a wrist splint documented as of this encounter (statuses as of 03/22/2022) [facility] History of Past illness Narrative* Problem Noted Date Resolved Date Sacroiliitis 11/21/2020 03/06/2021 Tear of medial meniscus of right knee 09/24/2019 10/02/2019 GI bleed 01/28/2019 07/31/2019 Absolute anemia 09/05/2017 02/06/2018 Overview: Added automatically from request for surgery [id number] Morbid obesity with BMI of 40.0-44.9, adult [...] 07/31/2019 Last Assessment & Plan: 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, she thinks it is from her RA, wants a wrist splint documented as of this encounter (statuses as of 03/27/2022) [facility] History of Past illness Narrative* Problem Noted Date Resolved Date Sacroiliitis 11/21/2020 03/06/2021 Tear of medial meniscus of right knee 09/24/2019 10/02/2019 GI bleed 01/28/2019 07/31/2019 Absolute anemia 09/05/2017 02/06/2018 Overview: Added automatically from request for surgery [id number] Morbid obesity with BMI of 40.0-44.9, adult [...] 07/31/2019 Last Assessment & Plan: 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, she thinks it is from her RA, wants a wrist splint documented as of this encounter (statuses as of 04/05/2022) [facility] History of Past illness Narrative* Problem Noted Date Resolved Date Sacroiliitis 11/21/2020 03/06/2021 Tear of medial meniscus of right knee 09/24/2019 10/02/2019 GI bleed 01/28/2019 07/31/2019 Absolute anemia 09/05/2017 02/06/2018 Overview: Added automatically from request for surgery [id number] Morbid obesity with BMI of 40.0-44.9, adult [...] 07/31/2019 Last Assessment & Plan: 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, she thinks it is from her RA, wants a wrist splint documented as of this encounter (statuses as of 04/19/2022) [facility] History of Past illness Narrative* Problem Noted Date Resolved Date Sacroiliitis 11/21/2020 03/06/2021 Tear of medial meniscus of right knee 09/24/2019 10/02/2019 GI bleed 01/28/2019 07/31/2019 Absolute anemia 09/05/2017 02/06/2018 Overview: Added automatically from request for surgery [id number] Morbid obesity with BMI of 40.0-44.9, adult [...] 07/31/2019 Last Assessment & Plan: 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, she thinks it is from her RA, wants a wrist splint documented as of this encounter (statuses as of 05/01/2022) [facility] History of Past illness Narrative* Problem Noted Date Resolved Date Sacroiliitis 11/21/2020 03/06/2021 Tear of medial meniscus of right knee 09/24/2019 10/02/2019 GI bleed 01/28/2019 07/31/2019 Absolute anemia 09/05/2017 02/06/2018 Overview: Added automatically from request for surgery [id number] Morbid obesity with BMI of 40.0-44.9, adult [...] 07/31/2019 Last Assessment & Plan: 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, she thinks it is from her RA, wants a wrist splint documented as of this encounter (statuses as of 05/03/2022) [facility] History of Past illness Narrative* Problem Noted Date Resolved Date Sacroiliitis 11/21/2020 03/06/2021 Tear of medial meniscus of right knee 09/24/2019 10/02/2019 GI bleed 01/28/2019 07/31/2019 Absolute anemia 09/05/2017 02/06/2018 Overview: Added automatically from request for surgery [id number] Morbid obesity with BMI of 40.0-44.9, adult [...] 07/31/2019 Last Assessment & Plan: 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, she thinks it is from her RA, wants a wrist splint documented as of this encounter (statuses as of 05/16/2022) [facility] History of Past illness Narrative* Problem Noted Date Resolved Date Sacroiliitis 11/21/2020 03/06/2021 Tear of medial meniscus of right knee 09/24/2019 10/02/2019 GI bleed 01/28/2019 07/31/2019 Absolute anemia 09/05/2017 02/06/2018 Overview: Added automatically from request for surgery [id number] Morbid obesity with BMI of 40.0-44.9, adult [...] 07/31/2019 Last Assessment & Plan: 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, she thinks it is from her RA, wants a wrist splint documented as of this encounter (statuses as of 05/17/2022) [facility] History of Past illness Narrative* Problem Noted Date Resolved Date Sacroiliitis 11/21/2020 03/06/2021 Tear of medial meniscus of right knee 09/24/2019 10/02/2019 GI bleed 01/28/2019 07/31/2019 Absolute anemia 09/05/2017 02/06/2018 Overview: Added automatically from request for surgery [id number] Morbid obesity with BMI of 40.0-44.9, adult [...] 07/31/2019 Last Assessment & Plan: 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, she thinks it is from her RA, wants a wrist splint documented as of this encounter (statuses as of 05/17/2022) [facility] History of Past illness Narrative* Problem Noted Date Resolved Date Sacroiliitis 11/21/2020 03/06/2021 Tear of medial meniscus of right knee 09/24/2019 10/02/2019 GI bleed 01/28/2019 07/31/2019 Absolute anemia 09/05/2017 02/06/2018 Overview: Added automatically from request for surgery [id number] Morbid obesity with BMI of 40.0-44.9, adult [...] 07/31/2019 Last Assessment & Plan: 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, she thinks it is from her RA, wants a wrist splint documented as of this encounter (statuses as of 05/29/2022) [facility] History of Past illness Narrative* Problem Noted Date Resolved Date Sacroiliitis 11/21/2020 03/06/2021 Tear of medial meniscus of right knee 09/24/2019 10/02/2019 GI bleed 01/28/2019 07/31/2019 Absolute anemia 09/05/2017 02/06/2018 Overview: Added automatically from request for surgery [id number] Morbid obesity with BMI of 40.0-44.9, adult [...] 07/31/2019 Last Assessment & Plan: 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, she thinks it is from her RA, wants a wrist splint documented as of this encounter (statuses as of 05/30/2022) [facility] History of Past illness Narrative* Problem Noted Date Resolved Date Sacroiliitis 11/21/2020 03/06/2021 Tear of medial meniscus of right knee 09/24/2019 10/02/2019 GI bleed 01/28/2019 07/31/2019 Absolute anemia 09/05/2017 02/06/2018 Overview: Added automatically from request for surgery [id number] Morbid obesity with BMI of 40.0-44.9, adult [...] 07/31/2019 Last Assessment & Plan: 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, she thinks it is from her RA, wants a wrist splint documented as of this encounter (statuses as of 06/12/2022) [facility] History of Past illness Narrative* Problem Noted Date Resolved Date Sacroiliitis 11/21/2020 03/06/2021 Tear of medial meniscus of right knee 09/24/2019 10/02/2019 GI bleed 01/28/2019 07/31/2019 Absolute anemia 09/05/2017 02/06/2018 Overview: Added automatically from request for surgery [id number] Morbid obesity with BMI of 40.0-44.9, adult [...] 07/31/2019 Last Assessment & Plan: 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, she thinks it is from her RA, wants a wrist splint documented as of this encounter (statuses as of 06/12/2022) [facility] History of Past illness Narrative* Problem Noted Date Resolved Date Sacroiliitis 11/21/2020 03/06/2021 Tear of medial meniscus of right knee 09/24/2019 10/02/2019 GI bleed 01/28/2019 07/31/2019 Absolute anemia 09/05/2017 02/06/2018 Overview: Added automatically from request for surgery [id number] Morbid obesity with BMI of 40.0-44.9, adult [...] 07/31/2019 Last Assessment & Plan: 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, she thinks it is from her RA, wants a wrist splint documented as of this encounter (statuses as of 06/15/2022) [facility] History of Past illness Narrative* Problem Noted Date Resolved Date Sacroiliitis 11/21/2020 03/06/2021 Tear of medial meniscus of right knee 09/24/2019 10/02/2019 GI bleed 01/28/2019 07/31/2019 Absolute anemia 09/05/2017 02/06/2018 Overview: Added automatically from request for surgery [id number] Morbid obesity with BMI of 40.0-44.9, adult [...] 07/31/2019 Last Assessment & Plan: 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, she thinks it is from her RA, wants a wrist splint documented as of this encounter (statuses as of 06/26/2022) [facility] History of Past illness Narrative* Problem Noted Date Resolved Date Sacroiliitis 11/21/2020 03/06/2021 Tear of medial meniscus of right knee 09/24/2019 10/02/2019 GI bleed 01/28/2019 07/31/2019 Absolute anemia 09/05/2017 02/06/2018 Overview: Added automatically from request for surgery [id number] Morbid obesity with BMI of 40.0-44.9, adult [...] 07/31/2019 Last Assessment & Plan: 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, she thinks it is from her RA, wants a wrist splint documented as of this encounter (statuses as of 06/27/2022) [facility] History of Past illness Narrative* Problem Noted Date Resolved Date Sacroiliitis 11/21/2020 03/06/2021 Tear of medial meniscus of right knee 09/24/2019 10/02/2019 GI bleed 01/28/2019 07/31/2019 Absolute anemia 09/05/2017 02/06/2018 Overview: Added automatically from request for surgery [id number] Morbid obesity with BMI of 40.0-44.9, adult [...] 07/31/2019 Last Assessment & Plan: 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, she thinks it is from her RA, wants a wrist splint documented as of this encounter (statuses as of 07/13/2022) [facility] History of Past illness Narrative* Problem Noted Date Resolved Date Sacroiliitis 11/21/2020 03/06/2021 Tear of medial meniscus of right knee 09/24/2019 10/02/2019 GI bleed 01/28/2019 07/31/2019 Absolute anemia 09/05/2017 02/06/2018 Overview: Added automatically from request for surgery [id number] Morbid obesity with BMI of 40.0-44.9, adult [...] 07/31/2019 Last Assessment & Plan: 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, she thinks it is from her RA, wants a wrist splint documented as of this encounter (statuses as of 07/17/2022) [facility] History of Past illness Narrative* Problem Noted Date Resolved Date Sacroiliitis 11/21/2020 03/06/2021 Tear of medial meniscus of right knee 09/24/2019 10/02/2019 GI bleed 01/28/2019 07/31/2019 Absolute anemia 09/05/2017 02/06/2018 Overview: Added automatically from request for surgery [id number] Morbid obesity with BMI of 40.0-44.9, adult [...] 07/31/2019 Last Assessment & Plan: 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, she thinks it is from her RA, wants a wrist splint documented as of this encounter (statuses as of 08/08/2022) [facility] History of Past illness Narrative* Problem Noted Date Resolved Date Sacroiliitis 11/21/2020 03/06/2021 Tear of medial meniscus of right knee 09/24/2019 10/02/2019 GI bleed 01/28/2019 07/31/2019 Absolute anemia 09/05/2017 02/06/2018 Overview: Added automatically from request for surgery [id number] Morbid obesity with BMI of 40.0-44.9, adult [...] 07/31/2019 Last Assessment & Plan: 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, she thinks it is from her RA, wants a wrist splint documented as of this encounter (statuses as of 08/09/2022) [facility] History of Past illness Narrative* Problem Noted Date Resolved Date Sacroiliitis 11/21/2020 03/06/2021 Tear of medial meniscus of right knee 09/24/2019 10/02/2019 GI bleed 01/28/2019 07/31/2019 Absolute anemia 09/05/2017 02/06/2018 Overview: Added automatically from request for surgery [id number] Morbid obesity with BMI of 40.0-44.9, adult [...] 07/31/2019 Last Assessment & Plan: 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, she thinks it is from her RA, wants a wrist splint documented as of this encounter (statuses as of 08/14/2022) [facility] History of Past illness Narrative* Problem Noted Date Resolved Date Sacroiliitis 11/21/2020 03/06/2021 Tear of medial meniscus of right knee 09/24/2019 10/02/2019 GI bleed 01/28/2019 07/31/2019 Absolute anemia 09/05/2017 02/06/2018 Overview: Added automatically from request for surgery [id number] Morbid obesity with BMI of 40.0-44.9, adult [...] 07/31/2019 Last Assessment & Plan: 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, she thinks it is from her RA, wants a wrist splint documented as of this encounter (statuses as of 08/16/2022) [facility] History of Past illness Narrative* Problem Noted Date Resolved Date Sacroiliitis 11/21/2020 03/06/2021 Tear of medial meniscus of right knee 09/24/2019 10/02/2019 GI bleed 01/28/2019 07/31/2019 Absolute anemia 09/05/2017 02/06/2018 Overview: Added automatically from request for surgery [id number] Morbid obesity with BMI of 40.0-44.9, adult [...] 07/31/2019 Last Assessment & Plan: 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, she thinks it is from her RA, wants a wrist splint documented as of this encounter (statuses as of 09/03/2022) [facility] History of Past illness Narrative* Problem Noted Date Resolved Date Sacroiliitis 11/21/2020 03/06/2021 Tear of medial meniscus of right knee 09/24/2019 10/02/2019 GI bleed 01/28/2019 07/31/2019 Absolute anemia 09/05/2017 02/06/2018 Overview: Added automatically from request for surgery [id number] Morbid obesity with BMI of 40.0-44.9, adult [...] 07/31/2019 Last Assessment & Plan: 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, she thinks it is from her RA, wants a wrist splint documented as of this encounter (statuses as of 09/07/2022) [facility] History of Past illness Narrative* Problem Noted Date Resolved Date Sacroiliitis 11/21/2020 03/06/2021 Tear of medial meniscus of right knee 09/24/2019 10/02/2019 GI bleed 01/28/2019 07/31/2019 Absolute anemia 09/05/2017 02/06/2018 Overview: Added automatically from request for surgery [id number] Morbid obesity with BMI of 40.0-44.9, adult [...] 07/31/2019 Last Assessment & Plan: 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, she thinks it is from her RA, wants a wrist splint documented as of this encounter (statuses as of 09/21/2022) [facility] History of Past illness Narrative* Problem Noted Date Resolved Date Sacroiliitis 11/21/2020 03/06/2021 Tear of medial meniscus of right knee 09/24/2019 10/02/2019 GI bleed 01/28/2019 07/31/2019 Absolute anemia 09/05/2017 02/06/2018 Overview: Added automatically from request for surgery [id number] Morbid obesity with BMI of 40.0-44.9, adult [...] 07/31/2019 Last Assessment & Plan: 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, she thinks it is from her RA, wants a wrist splint documented as of this encounter (statuses as of 10/25/2022) [facility] History of Past illness Narrative* Problem Noted Date Resolved Date Sacroiliitis 11/21/2020 03/06/2021 Tear of medial meniscus of right knee 09/24/2019 10/02/2019 GI bleed 01/28/2019 07/31/2019 Absolute anemia 09/05/2017 02/06/2018 Overview: Added automatically from request for surgery [id number] Morbid obesity with BMI of 40.0-44.9, adult [...] 07/31/2019 Last Assessment & Plan: 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, she thinks it is from her RA, wants a wrist splint documented as of this encounter (statuses as of 11/01/2022) [facility] History of Past illness Narrative* Problem Noted Date Resolved Date Sacroiliitis 11/21/2020 03/06/2021 Tear of medial meniscus of right knee 09/24/2019 10/02/2019 GI bleed 01/28/2019 07/31/2019 Absolute anemia 09/05/2017 02/06/2018 Overview: Added automatically from request for surgery [id number] Morbid obesity with BMI of 40.0-44.9, adult [...] 07/31/2019 Last Assessment & Plan: 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, she thinks it is from her RA, wants a wrist splint documented as of this encounter (statuses as of 11/02/2022) [facility] History of Past illness Narrative* Problem Noted Date Resolved Date Sacroiliitis 11/21/2020 03/06/2021 Tear of medial meniscus of right knee 09/24/2019 10/02/2019 GI bleed 01/28/2019 07/31/2019 Absolute anemia 09/05/2017 02/06/2018 Overview: Added automatically from request for surgery [id number] Morbid obesity with BMI of 40.0-44.9, adult [...] 07/31/2019 Last Assessment & Plan: 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, she thinks it is from her RA, wants a wrist splint documented as of this encounter (statuses as of 11/20/2022) [facility] History of Past illness Narrative* Problem Noted Date Resolved Date Sacroiliitis 11/21/2020 03/06/2021 Tear of medial meniscus of right knee 09/24/2019 10/02/2019 GI bleed 01/28/2019 07/31/2019 Absolute anemia 09/05/2017 02/06/2018 Overview: Added automatically from request for surgery [id number] Morbid obesity with BMI of 40.0-44.9, adult [...] 07/31/2019 Last Assessment & Plan: 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, she thinks it is from her RA, wants a wrist splint documented as of this encounter (statuses as of 11/26/2022) [facility] History of Past illness Narrative* Problem Noted Date Resolved Date Sacroiliitis 11/21/2020 03/06/2021 Tear of medial meniscus of right knee 09/24/2019 10/02/2019 GI bleed 01/28/2019 07/31/2019 Absolute anemia 09/05/2017 02/06/2018 Overview: Added automatically from request for surgery [id number] Morbid obesity with BMI of 40.0-44.9, adult [...] 07/31/2019 Last Assessment & Plan: 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, she thinks it is from her RA, wants a wrist splint documented as of this encounter (statuses as of 12/26/2022) [facility] History of Past illness Narrative* Problem Noted Date Resolved Date Sacroiliitis 11/21/2020 03/06/2021 Tear of medial meniscus of right knee 09/24/2019 10/02/2019 GI bleed 01/28/2019 07/31/2019 Absolute anemia 09/05/2017 02/06/2018 Overview: Added automatically from request for surgery [id number] Morbid obesity with BMI of 40.0-44.9, adult [...] 07/31/2019 Last Assessment & Plan: 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, she thinks it is from her RA, wants a wrist splint documented as of this encounter (statuses as of 12/26/2022) [facility] History of Past illness Narrative* Problem Noted Date Resolved Date Sacroiliitis 11/21/2020 03/06/2021 Tear of medial meniscus of right knee 09/24/2019 10/02/2019 GI bleed 01/28/2019 07/31/2019 Absolute anemia 09/05/2017 02/06/2018 Overview: Added automatically from request for surgery [id number] Morbid obesity with BMI of 40.0-44.9, adult [...] 07/31/2019 Last Assessment & Plan: 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, she thinks it is from her RA, wants a wrist splint documented as of this encounter (statuses as of 01/02/2023) [facility] History of Past illness Narrative* Problem Noted Date Resolved Date Sacroiliitis 11/21/2020 03/06/2021 Tear of medial meniscus of right knee 09/24/2019 10/02/2019 GI bleed 01/28/2019 07/31/2019 Absolute anemia 09/05/2017 02/06/2018 Overview: Added automatically from request for surgery [id number] Morbid obesity with BMI of 40.0-44.9, adult [...] 07/31/2019 Last Assessment & Plan: 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, she thinks it is from her RA, wants a wrist splint documented as of this encounter (statuses as of 02/01/2023) [facility] History of Past illness Narrative* Problem Noted Date Diagnosed Date Resolved Date Sacroiliitis 11/21/2020 03/06/2021 Tear of medial meniscus of right knee 09/24/2019 10/02/2019 GI bleed 01/28/2019 07/31/2019 Absolute anemia 09/05/2017 02/06/2018 Overview: Added automatically from request for surgery [id number] Morbid obesity with BMI of 40.0-44.9, adult [...] 07/31/2019 Last Assessment & Plan: 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, she thinks it is from her RA, wants a wrist splint documented as of this encounter (statuses as of 04/11/2023) [facility] History of Past illness Narrative* Problem Noted Date Diagnosed Date Resolved Date Sacroiliitis 11/21/2020 03/06/2021 Tear of medial meniscus of right knee 09/24/2019 10/02/2019 GI bleed 01/28/2019 07/31/2019 Absolute anemia 09/05/2017 02/06/2018 Overview: Added automatically from request for surgery [id number] Morbid obesity with BMI of 40.0-44.9, adult [...] 07/31/2019 Last Assessment & Plan: 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, she thinks it is from her RA, wants a wrist splint documented as of this encounter (statuses as of 04/15/2023) [facility] History of Past illness Narrative* Problem Noted Date Diagnosed Date Resolved Date Sacroiliitis 11/21/2020 03/06/2021 Tear of medial meniscus of right knee 09/24/2019 10/02/2019 GI bleed 01/28/2019 07/31/2019 Absolute anemia 09/05/2017 02/06/2018 Overview: Added automatically from request for surgery [id number] Morbid obesity with BMI of 40.0-44.9, adult [...] 07/31/2019 Last Assessment & Plan: 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, she thinks it is from her RA, wants a wrist splint documented as of this encounter (statuses as of 04/26/2023) [facility] History of Past illness Narrative* Problem Noted Date Diagnosed Date Resolved Date Sacroiliitis 11/21/2020 03/06/2021 Tear of medial meniscus of right knee 09/24/2019 10/02/2019 GI bleed 01/28/2019 07/31/2019 Absolute anemia 09/05/2017 02/06/2018 Overview: Added automatically from request for surgery [id number] Morbid obesity with BMI of 40.0-44.9, adult [...] 07/31/2019 Last Assessment & Plan: 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, she thinks it is from her RA, wants a wrist splint documented as of this encounter (statuses as of 04/26/2023) [facility] History of Past illness Narrative* Problem Noted Date Diagnosed Date Resolved Date Sacroiliitis 11/21/2020 03/06/2021 Tear of medial meniscus of right knee 09/24/2019 10/02/2019 GI bleed 01/28/2019 07/31/2019 Absolute anemia 09/05/2017 02/06/2018 Overview: Added automatically from request for surgery [id number] Morbid obesity with BMI of 40.0-44.9, adult [...] 07/31/2019 Last Assessment & Plan: 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, she thinks it is from her RA, wants a wrist splint documented as of this encounter (statuses as of 04/30/2023) [facility] History of Past illness Narrative* Problem Noted Date Diagnosed Date Resolved Date Sacroiliitis 11/21/2020 03/06/2021 Tear of medial meniscus of right knee 09/24/2019 10/02/2019 GI bleed 01/28/2019 07/31/2019 Absolute anemia 09/05/2017 02/06/2018 Overview: Added automatically from request for surgery [id number] Morbid obesity with BMI of 40.0-44.9, adult [...] 07/31/2019 Last Assessment & Plan: 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, she thinks it is from her RA, wants a wrist splint documented as of this encounter (statuses as of 05/21/2023) [facility] History of Past illness Narrative* Problem Noted Date Diagnosed Date Resolved Date Sacroiliitis 11/21/2020 03/06/2021 Tear of medial meniscus of right knee 09/24/2019 10/02/2019 GI bleed 01/28/2019 07/31/2019 Absolute anemia 09/05/2017 02/06/2018 Overview: Added automatically from request for surgery [id number] Morbid obesity with BMI of 40.0-44.9, adult [...] 07/31/2019 Last Assessment & Plan: 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, she thinks it is from her RA, wants a wrist splint documented as of this encounter (statuses as of 05/28/2023) [facility] History of Past illness Narrative* Problem Noted Date Diagnosed Date Resolved Date Sacroiliitis 11/21/2020 03/06/2021 Tear of medial meniscus of right knee 09/24/2019 10/02/2019 GI bleed 01/28/2019 07/31/2019 Absolute anemia 09/05/2017 02/06/2018 Overview: Added automatically from request for surgery [id number] Morbid obesity with BMI of 40.0-44.9, adult [...] 07/31/2019 Last Assessment & Plan: 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, she thinks it is from her RA, wants a wrist splint documented as of this encounter (statuses as of 06/03/2023) [facility] History of Past illness Narrative* Problem Noted Date Diagnosed Date Resolved Date Sacroiliitis 11/21/2020 03/06/2021 Tear of medial meniscus of right knee 09/24/2019 10/02/2019 GI bleed 01/28/2019 07/31/2019 Absolute anemia 09/05/2017 02/06/2018 Overview: Added automatically from request for surgery [id number] Morbid obesity with BMI of 40.0-44.9, adult [...] 07/31/2019 Last Assessment & Plan: 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, she thinks it is from her RA, wants a wrist splint documented as of this encounter (statuses as of 06/03/2023) [facility] History of Past illness Narrative* Problem Noted Date Diagnosed Date Resolved Date Sacroiliitis 11/21/2020 03/06/2021 Tear of medial meniscus of right knee 09/24/2019 10/02/2019 GI bleed 01/28/2019 07/31/2019 Absolute anemia 09/05/2017 02/06/2018 Overview: Added automatically from request for surgery [id number] Morbid obesity with BMI of 40.0-44.9, adult [...] 07/31/2019 Last Assessment & Plan: 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, she thinks it is from her RA, wants a wrist splint documented as of this encounter (statuses as of 06/19/2023) [facility] History of Past illness Narrative* Problem Noted Date Diagnosed Date Resolved Date Sacroiliitis 11/21/2020 03/06/2021 Tear of medial meniscus of right knee 09/24/2019 10/02/2019 GI bleed 01/28/2019 07/31/2019 Absolute anemia 09/05/2017 02/06/2018 Overview: Added automatically from request for surgery [id number] Morbid obesity with BMI of 40.0-44.9, adult [...] 07/31/2019 Last Assessment & Plan: 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, she thinks it is from her RA, wants a wrist splint documented as of this encounter (statuses as of 07/04/2023) [facility] History of Past illness Narrative* Problem Noted Date Diagnosed Date Resolved Date Sacroiliitis 11/21/2020 03/06/2021 Tear of medial meniscus of right knee 09/24/2019 10/02/2019 GI bleed 01/28/2019 07/31/2019 Absolute anemia 09/05/2017 02/06/2018 Overview: Added automatically from request for surgery [id number] Morbid obesity with BMI of 40.0-44.9, adult [...] 07/31/2019 Last Assessment & Plan: 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, she thinks it is from her RA, wants a wrist splint documented as of this encounter (statuses as of 08/30/2023) [facility] History of Past illness Narrative* Problem Noted Date Diagnosed Date Resolved Date Sacroiliitis 11/21/2020 03/06/2021 Tear of medial meniscus of right knee 09/24/2019 10/02/2019 GI bleed 01/28/2019 07/31/2019 Absolute anemia 09/05/2017 02/06/2018 Overview: Added automatically from request for surgery [id number] Morbid obesity with BMI of 40.0-44.9, adult [...] 07/31/2019 Last Assessment & Plan: 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, she thinks it is from her RA, wants a wrist splint documented as of this encounter (statuses as of 09/16/2023) [facility] History of Past illness Narrative* Problem Noted Date Diagnosed Date Resolved Date Sacroiliitis 11/21/2020 03/06/2021 Tear of medial meniscus of right knee 09/24/2019 10/02/2019 GI bleed 01/28/2019 07/31/2019 Absolute anemia 09/05/2017 02/06/2018 Overview: Added automatically from request for surgery [id number] Morbid obesity with BMI of 40.0-44.9, adult [...] 07/31/2019 Last Assessment & Plan: 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, she thinks it is from her RA, wants a wrist splint documented as of this encounter (statuses as of 09/19/2023) [facility] History of Past illness Narrative* Problem Noted Date Diagnosed Date Resolved Date Sacroiliitis 11/21/2020 03/06/2021 Tear of medial meniscus of right knee 09/24/2019 10/02/2019 GI bleed 01/28/2019 07/31/2019 Absolute anemia 09/05/2017 02/06/2018 Overview: Added automatically from request for surgery [id number] Morbid obesity with BMI of 40.0-44.9, adult [...] 07/31/2019 Last Assessment & Plan: 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, she thinks it is from her RA, wants a wrist splint documented as of this encounter (statuses as of 09/26/2023) [facility] History of Past illness Narrative* Problem Noted Date Diagnosed Date Resolved Date Sacroiliitis 11/21/2020 03/06/2021 Tear of medial meniscus of right knee 09/24/2019 10/02/2019 GI bleed 01/28/2019 07/31/2019 Absolute anemia 09/05/2017 02/06/2018 Overview: Added automatically from request for surgery [id number] Morbid obesity with BMI of 40.0-44.9, adult [...] 07/31/2019 Last Assessment & Plan: 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, she thinks it is from her RA, wants a wrist splint documented as of this encounter (statuses as of 10/15/2023) [facility] History of Past illness Narrative* Problem Noted Date Diagnosed Date Resolved Date Sacroiliitis 11/21/2020 03/06/2021 Tear of medial meniscus of right knee 09/24/2019 10/02/2019 GI bleed 01/28/2019 07/31/2019 Absolute anemia 09/05/2017 02/06/2018 Overview: Added automatically from request for surgery [id number] Morbid obesity with BMI of 40.0-44.9, adult [...] 07/31/2019 Last Assessment & Plan: 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, she thinks it is from her RA, wants a wrist splint documented as of this encounter (statuses as of 10/18/2023) [facility] History of Past illness Narrative* Problem Noted Date Diagnosed Date Resolved Date Sacroiliitis 11/21/2020 03/06/2021 Tear of medial meniscus of right knee 09/24/2019 10/02/2019 GI bleed 01/28/2019 07/31/2019 Absolute anemia 09/05/2017 02/06/2018 Overview: Added automatically from request for surgery [id number] Morbid obesity with BMI of 40.0-44.9, adult [...] 07/31/2019 Last Assessment & Plan: 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, she thinks it is from her RA, wants a wrist splint documented as of this encounter (statuses as of 11/12/2023) [facility] Author Quang Hagen [facility] Note Date/Time March 02, 2025 10: 45am [facility] Medical Records Department [address] [place] [address] Anesthesia Postop Eval I 03/02/251044 MR#: [id number] Acct: [id number] Name: MARIMAR WANG Rep #:[id number] : 1960 64 From: Quang NATHAN PCP: STEFANO ArriolaC Status:REG S DC Y Race: C Location: [place] [address] Anesthesia: Postop Eval I Current Vital Signs [...] CRNA Cosigner Signature: Date CC: ~ Signed [facility] Work Phone: Evaluation note* Diagnosis Rheumatoid arthritis involving multiple sites, unspecified whether rheumatoid factor present (HCC) Other osteoporosis with current pathological fracture with malunion, subsequent encounter [facility] Anxiety and depression Dysthymic disorder [facility] Diagnosis Other osteoporosis with current [...] or radiculitis, unspecified [facility] Diagnosis SOB (shortness of breath) Shortness of breath [facility] Diagnosis Class 1 obesity with body mass index (BMI) of 34.0 to 34.9 in adult Hyperlipidemia with target LDL less than 130 Other and unspecified hyperlipidemia [facility] Encounter for screening mammogram for breast cancer [facility] Diagnosis Vitamin D deficiency Unspecified vitamin D deficiency Rheumatoid arthritis involving multiple sites with positive rheumatoid factor (HCC) [facility] Diagnosis Lumbar spondylosis- Primary Lumbosacral spondylosis without myelopathy Chronic bilateral low back pain without sciatica Myofascial pain Mylagia and myositis, unspecified Fibromyalgia Mylagia and myositis, unspecified Lumbar spondylosis Lumbosacral spondylosis without myelopathy [facility] Diagnosis Lumbar spondylosis- Primary Lumbosacral spondylosis without myelopathy Lumbar spondylosis Lumbosacral spondylosis without myelopathy [facility] Diagnosis Other osteoporosis with current pathological fracture with malunion, subsequent encounter- Primary Rheumatoid arthritis involving multiple sites, unspecified whether rheumatoid factor present (HCC) [facility] Diagnosis High risk medication use Encounter for long-term (current) use of other medications Rheumatoid arthritis involving multiple sites with positive rheumatoid factor (HCC) Localized osteoporosis without current pathological fracture [facility] Other osteoporosis with current pathological fracture with malunion, subsequent encounter- Primary Rheumatoid arthritis involving multiple sites, unspecified whether rheumatoid factor present (HCC) [facility] Diagnosis Radiculopathy, lumbar region Thoracic or lumbosacral neuritis or radiculitis, unspecified [facility] Diagnosis Other osteoporosis with current pathological fracture with malunion, subsequent encounter- Primary Rheumatoid arthritis involving multiple sites, unspecified whether rheumatoid factor present (HCC) [facility] Diagnosis Exposure to 2019 novel coronavirus- Primary [facility] Diagnosis COVID- Primary [facility] Diagnosis Radiculopathy, lumbar region Thoracic or lumbosacral neuritis or radiculitis, unspecified [facility] Diagnosis High risk medication use Encounter for long-term (current) use of other medications Rheumatoid arthritis involving multiple sites with positive rheumatoid factor (HCC) Localized osteoporosis without current pathological fracture [facility] Diagnosis Localized osteoporosis without current pathological [...] vitamin D deficiency [facility] Diagnosis Pain in left hip Pain in joint, pelvic region and thigh Fall, initial encounter [facility] Diagnosis Other osteoporosis with current pathological fracture with malunion, subsequent encounter- Primary Rheumatoid arthritis involving multiple sites, unspecified whether rheumatoid factor present (HCC) [facility] Diagnosis Chronic bilateral low back pain without sciatica- Primary Lumbar spondylosis Lumbosacral spondylosis without myelopathy Myofascial pain Mylagia and myositis, unspecified Fibromyalgia Mylagia and myositis, unspecified Sacroiliitis (HCC) Sacroiliitis, not elsewhere classified [facility] Diagnosis Other osteoporosis with current pathological fracture with malunion, subsequent encounter- Primary Rheumatoid arthritis involving multiple sites, unspecified whether rheumatoid factor present (HCC) [facility] Diagnosis Onset Date Resolution Status Acute bronchitis acute Contact with or suspected ex posure to other viral communicable disease acute Osteoarthritis of right knee acute Other instability, right knee acute Right knee pain acute Acute pharyngitis, unspecified acute URI (upper respiratory infection) acute [facility] Work Phone: Evaluation note* Diagnosis High risk medication use Encounter for long-term (current) use of other medications Rheumatoid arthritis involving multiple sites with positive rheumatoid factor ([facility]) Localized osteoporosis without current pathological fracture [facility] Diagnosis Onset Date Resolution Status Acute bronchitis acute Contact with or suspected ex posure to other viral communicable disease acute Osteoarthritis of right knee acute Other instability, right knee acute Right knee pain acute Acute pharyngitis, unspecified acute URI (upper respiratory infection) acute Diarrhea chronic Nausea [facility] Work Phone: Evaluation note* Diagnosis Pain in joint, multiple sites- Primary Osteoporosis, unspecified osteoporosis type, unspecified pathological fracture presence [facility] Rheumatoid arthritis involving multiple sites, unspecified whether rheumatoid factor present ([facility])- Primary Vitamin D deficiency Unspecified vitamin D deficiency Other osteoporosis with current pathological fracture with malunion, subsequent [facility] Anxiety and depression Dysthymic disorder [facility] Diagnosis Onset Date Resolution Status Osteoarthritis of right knee acute Other instability, right knee acute Right knee pain acute Acute pharyngitis, unspecified acute URI (upper respiratory infection) acute Diarrhea chronic Nausea chronic Internal derangement of right knee acute Osteoarthritis of right knee acute Pain in right pelaez acute Diarrhea chronic Nausea chronic [facility] Work Phone: Evaluation note* Diagnosis Onset [...] acute Right knee meniscal tear acu te [facility] Work Phone: Evaluation note* Diagnosis High risk medication use Encounter for long-term (current) use of other medications Rheumatoid arthritis involving multiple sites with positive rheumatoid factor (HCC) Localized osteoporosis without current pathological fracture [facility] Diagnosis High risk medication use Encounter for long-term (current) use of other medications Rheumatoid arthritis involving multiple sites with positive rheumatoid factor (HCC) Localized osteoporosis without current pathological fracture [facility] Diagnosis Onset Date Resolution Status Diarrhea chronic Nausea chronic Internal derangement of right knee acute Osteoarthritis of right knee acute Pain in right pelaez acute Diarrhea chronic Nausea chronic Internal derangement of right knee acute Osteoarthritis of right knee acute Right knee meniscal tear acu te Fibromyalgia acute Rheumatoid arthritis acute Right knee DJD acute [facility] Work Phone: Evaluation note* Diagnosis Onset Date Resolution Status Internal derangement of right knee acute Osteoarthritis of right knee acute Pain in right pelaez acute Diarrhea chronic Nausea chronic Internal derangement of right knee acute Osteoarthritis of right knee acute Right knee meniscal tear acu te Fibromyalgia acute Rheumatoid arthritis acute Right knee DJD acute S/P total knee arthroplasty acute [facility] Work Phone: Evaluation note* Diagnosis High risk medication use Encounter for long-term (current) use of other medications Rheumatoid arthritis involving multiple sites with positive rheumatoid factor (HCC) Localized osteoporosis without current pathological fracture [facility] Diagnosis Rheumatoid arthritis involving multiple sites, unspecified whether rheumatoid factor present (HCC)- Primary Vitamin D deficiency Unspecified vitamin D deficiency Localized osteoporosis without current pathological fracture [facility] Diagnosis Osteoporosis, unspecified- Primary [facility] Diagnosis Vitamin D deficiency Unspecified vitamin D deficiency Rheumatoid arthritis involving multiple sites with positive rheumatoid factor (HCC) [facility] Diagnosis Rheumatoid arthritis involving multiple sites with positive rheumatoid factor (HCC)- Primary High risk medication use Encounter for long-term (current) use of other medications Localized osteoporosis without current pathological fracture Vitamin D deficiency Unspecified vitamin D deficiency [facility]* Diagnosis Rheumatoid arthritis involving multiple sites, unspecified whether rheumatoid factor present (HCC) [facility] Right knee pain, unspecified chronicity [facility]* Diagnosis Localized osteoporosis without current pathological fracture [facility]* Diagnosis Rheumatoid arthritis involving multiple sites, unspecified whether rheumatoid factor present (HCC) [facility] Diagnosis Onset Date Resolution Status Orthopedic aftercare acute Diarrhea [facility] Work Phone: Evaluation note* Diagnosis Rheumatoid arthritis involving multiple sites, unspecified whether rheumatoid factor present (HCC) [facility] Diagnosis Onset Date Resolution Status Diarrhea chronic [facility] Work Phone: Evaluation note* Diagnosis High risk medication use Encounter for long-term (current) use of other medications Rheumatoid arthritis involving multiple sites with positive rheumatoid factor (HCC) Localized osteoporosis without current pathological fracture [facility] Diagnosis Onset Date Resolution Status Diarrhea chronic Right knee pain acute [facility] Work Phone: Evaluation note* Diagnosis Rheumatoid arthritis involving multiple sites, unspecified whether rheumatoid factor present (HCC) Osteoporosis, unspecified Vitamin D deficiency Unspecified vitamin D deficiency [facility] Diagnosis Rheumatoid arthritis involving multiple sites with positive rheumatoid factor (HCC)- Primary High risk medication use Encounter for long-term (current) use of other medications Localized osteoporosis without current pathological fracture Vitamin D deficiency Unspecified vitamin D deficiency [facility] Diagnosis Rheumatoid arthritis involving multiple sites with positive rheumatoid factor (HCC)- Primary [facility] Diagnosis High risk medication use Encounter for long-term (current) use of other medications Rheumatoid arthritis involving multiple sites with positive rheumatoid factor (HCC) Localized osteoporosis without current pathological fracture [facility] Diagnosis Rheumatoid arthritis involving multiple sites with positive rheumatoid factor (HCC)- Primary [facility] Diagnosis Rheumatoid arthritis involving multiple sites with positive rheumatoid factor (HCC)- Primary [facility]* Diagnosis Establishing care with new [...] factor (HCC)- Primary [facility] Establishing care with new doctor, [...] Post-COVID chronic fatigue [facility] Diagnosis Establishing care with new doctor, [...] nonspecific skin eruption [facility] Diagnosis Establishing care with new doctor, [...] factor (HCC)- Primary [facility] Diagnosis Establishing care with new doctor, [...] anemia type- Primary [facility] Diagnosis Establishing care with new doctor, [...] anemia type- Primary [facility] Diagnosis Establishing care with new doctor, [...] current pathological fracture [facility] Diagnosis Establishing care with new doctor, [...] specified intestinal malabsorption [facility] Diagnosis Establishing care with new doctor, [...] specified intestinal malabsorption [facility] Diagnosis Establishing care with new doctor, [...] specified intestinal malabsorption [facility] Diagnosis Establishing care with new doctor, [...] pathological fracture presence [facility]* Diagnosis Establishing care with new doctor, [...] or rectal pain [facility] Diagnosis Establishing care with new doctor, [...] current pathological fracture [facility] Diagnosis Establishing care with new doctor, [...] blood loss (chronic) [facility] Diagnosis Establishing care with new doctor, [...] anus, unspecified site [facility] Diagnosis Establishing care with new doctor, [...] vitamin D deficiency [facility] Diagnosis Establishing care with new doctor, [...] anus, unspecified site [facility] Diagnosis Establishing care with new doctor, [...] anus, unspecified site [facility] Diagnosis Establishing care with new doctor, [...] anus, unspecified site [facility] Diagnosis Establishing care with new doctor, [...] Pain Generalized pain [facility] Diagnosis Establishing care with new doctor, [...] Primary Counseling NOS [facility]* Diagnosis Establishing care with new doctor, [...] deficiency anemia type [facility]* Diagnosis Establishing care with new doctor, [...] for breast cancer [facility]* Diagnosis Establishing care with new doctor, [...] for breast cancer [facility] Diagnosis Establishing care with new doctor, [...] recurrent major depressive disorder (HCC) Anal cancer ([facility])- Primary Malignant neoplasm of anus, unspecified site [facility] Diagnosis Establishing care with new doctor, [...] anus, unspecified site [facility] Diagnosis Establishing care with new doctor, [...] anus, unspecified site [facility] Diagnosis Establishing care with new doctor, [...] recurrent major depressive disorder (HCC) Anal cancer ([facility])- Primary Malignant neoplasm of anus, unspecified site [facility] Diagnosis Establishing care with new doctor, [...] anus, unspecified site [facility] Diagnosis Establishing care with new doctor, [...] anus, unspecified site [facility] Diagnosis Establishing care with new doctor, [...] anus, unspecified site [facility] Diagnosis Establishing care with new doctor, [...] and mucositis, unspecified [facility] Diagnosis Establishing care with new doctor, [...] anus, unspecified site [facility] Diagnosis Establishing care with new doctor, [...] recurrent major depressive disorder (HCC) Anal cancer ([facility])- Primary Malignant neoplasm of anus, unspecified site [facility] Diagnosis Establishing care with new doctor, [...] recurrent major depressive disorder (HCC) Anal cancer ([facility])- Primary Malignant neoplasm of anus, unspecified site [facility] Diagnosis Establishing care with new doctor, [...] swelling- Primary Swelling of limb Anal cancer ([facility]) Malignant neoplasm of anus, unspecified site PICC (peripherally inserted central catheter) in place Fitting and adjustment of vascular catheter [facility] Diagnosis Establishing care with new doctor, [...] anus, unspecified site [facility] Diagnosis Establishing care with new doctor, [...] recurrent major depressive disorder (HCC) Anal cancer ([facility])- Primary Malignant neoplasm of anus, unspecified site [facility] Diagnosis Establishing care with new doctor, [...] anus, unspecified site [facility] Diagnosis Establishing care with new doctor, [...] anus, unspecified site [facility]* Diagnosis Establishing care with new doctor, [...] anus, unspecified site [facility]* Diagnosis Establishing care with new doctor, [...] disorders of bladder [facility] Diagnosis Establishing care with new doctor, [...] anus, unspecified site [facility]* Diagnosis Establishing care with new doctor, [...] anus, unspecified site [facility] Diagnosis Establishing care with new doctor, [...] anus, unspecified site [facility]* Diagnosis Establishing care with new doctor, [...] of recurrent major depressive disorder Anal cancer ([facility])- Primary Malignant neoplasm of anus, unspecified site [facility]* Diagnosis Establishing care with new doctor, [...] anus, unspecified site [facility] Diagnosis Establishing care with new doctor, [...] Nausea with vomiting [facility] Diagnosis Establishing care with new doctor, [...] of recurrent major depressive disorder Anal cancer ([facility])- Primary Malignant neoplasm of anus, unspecified site [facility] Diagnosis Establishing care with new doctor, [...] anus, unspecified site [facility] Diagnosis Establishing care with new doctor, [...] anus, unspecified site [facility] Diagnosis Establishing care with new doctor, [...] current pathological fracture [facility] Diagnosis Establishing care with new doctor, [...] anus, unspecified site [facility]* Diagnosis Establishing care with new doctor, [...] anus, unspecified site [facility]* Diagnosis Establishing care with new doctor, [...] current pathological fracture [facility] Diagnosis Establishing care with new doctor, [...] current pathological fracture [facility] Diagnosis Establishing care with new doctor, [...] current pathological fracture [facility]* Diagnosis Onset Date Resolution Status Admit Date Crohn disease acute January 14, 2025 8:19am Irritable bowel syndrome wit h diarrhea acute January 14, 2025 8:19am [place] [employer] [facility] Work Phone: Evaluation note* Diagnosis Establishing [...] disease without complication, unspecified gastrointestinal tract location ([facility])- Primary Irritable bowel syndrome with diarrhea Irritable bowel syndrome [facility] Diagnosis Establishing care with new doctor, [...] anus, unspecified site [facility] Diagnosis Establishing care with new doctor, [...] anus, unspecified site [facility] Diagnosis Establishing care with new doctor, [...] involving multiple sites with positive rheumatoid factor ([facility]) Vitamin D deficiency Unspecified vitamin D deficiency [facility] Diagnosis Establishing care with new doctor, [...] involving multiple sites with positive rheumatoid factor ([facility]) [facility] Diagnosis Establishing care with new doctor, [...] involving multiple sites with positive rheumatoid factor ([facility]) [facility] Diagnosis Establishing care with new doctor, [...] blood loss (chronic) [facility] Diagnosis Establishing care with new doctor, [...] blood loss (chronic) [facility] Author Andrez Pitts [facility] November 06, 2022 2:47pm Note Date/Time November 06, 2022 2:4 7pm [facility] Medical Records Department [address] [place] [address] History & Physical Exam 11/06/22 1447 MR#: [id number] Acct: [id number] Name: MARIMAR WAGN Rep #:[id number] : 1960 62 From: Andrez Pitts DO PCP: SINAI Arriola Status:REG S DC Location: [place] [address] History and Physical Date of Admission: 11/06/22 ?62 F who presents to the office today to transfer care from another GI practice. She has chronic nausea, chronic diarrhea. In 2018 she had fundoplication for very large hiatal hernia that was in her chest and was causing dyspnea, surgery was done at [facility]. Her surgeon sent her to [facility] for chronic nausea which began after fundoplication, [...] She used to take esomeprazole. No hx Acrtwright's esophagus. One hour after eating she has diarrhea. Stool is always loose, never formed, this started about 6 mos ago. No melena or hematochezia. Rare nocturnal diarrhea. Gets painful abd cramps before diarrhea. If she took hyoscyamine before eating, then it helped minimize the diarrhea. No relief with dicyclomine.Hasn't been on cholestyramine or colestipol. Had HIDA scan, US, gastric emptying study at [facility], we'll request records 08/2017 EGD normal [...] Mood: euthymic mood Quality Reporting Tobacco Screening ([facility]) Smoking Status: Former smoker Assessment and [...] Pitts DO> Cosigner Signature (if applicable): CC: [employer] Julio Arriaga; Andrez Pitts DO~ Signed [facility] Work Phone: History and physical note Author Kenya Garcia [facility] Note Date/Time March 02, 2025 10: 14am [facility] Medical Records Department [address] [place] [address] History & Physical Exam 03/02/25 1008 MR#: [id number] Acct: [id number] Name: MARIMAR WANG Rep #:[id number] 2 : 1960 64 From: Kenya Garcia MD PCP: [facility] Arriola Status:REG S DC Location: [place] [address] HPI - General General Date of Admission: [...] is to biopsy for any residual disease [facility] Medical History Cancer Walker [...] MENTAL HEALTH 0 12/13/15 09/01/24 History peg [id number] 1 1 drp OP 4X/DAY DRY EY [...] Q12H 10/24 Unknown History a dose pack ([employer] DVT-PE Treat 30D Start) cholecalciferol (vitamin D3) [...] Garcia MD> Cosigner Signature (if applicable): CC: CARBON PRINTERRowan Arriaga; Dr. Kenya Garcia MD~ Signed [facility] Work Phone: Hospital course Narrative No data available for this section [facility] Hospital Discharge instructions No data available for this section [facility] Hospital Discharge instructions Additional Instructions CT with no PE. Cardiac workup negative. CT abdomen pelvis no infectious findings. Urine retention with Ash catheter. Likely from your cancer with radiation therapy. Follow-up with urology. Keep your follow-up with your doctors.[facility] Work Phone: Hospital Discharge instructions Additional Instructions Your head CT showed no sign of skull fracture or brain bleed. Your hip x-rays show degenerative changes without fracture or damage to your previous hardware. You may ice the areas that are painful to help reduce pain and speed healing as well as take the prescribed Percocet. Mrcy-eve-lihhqwr medication such as lidocaine patches or Salonpas may help as well. [facility] the ER should [facility] Work Phone: Hospital Discharge instructions Additional Instructions I am not sure what is causing her chronic left sacral and buttock pain. Your CT of the pelvis is normal other than osteoporosis. I prescribed [place] for pain. Take a stool softener or MiraLAX while on this. Follow-up with your primary care doctor.[facility] Work Phone: Hospital Discharge instructionsAdditional Instructions 1. Stop taking the tramadol while you are on Percocet. 2.[facility] Work Phone: Progress note No data available for this section [facility] Reason for referral (narrative)* Diagnostic Procedure Only (Routine) - Pending Review Specialty Diagnoses / Procedures Referred By Jordy t Referred To Contact [facility] Diagnoses Encounter for screening mammogram for breast cancer Procedures MARIA TERESA SCREENING W CAMERON SCREENING DIGITAL BREAST TOMOSYNTHESIS BI SCREENING MAMMOGRAPHY BI 2-VIEW BREAST INC Selene Valencia MD [address] [place] [address] [facility] [address] [facility] [place] [address] Referral ID Status Reason Start Date Expiration Date Visits Requested Visits Authorized [id number] Pending Review Auto-Generat ed Referral 01/24/2022 02/23/2023 1 1 [facility] for referral (narrative)* Diagnostic Procedure Only (Routine) - Closed Specialty Diagnoses / Procedures Referred By Contac t Referred To Contact XR IMAGING Diagnoses Pain in left hip Fall, initial encounter Procedures XR HIP GENERAL 3V PELV/AP/LAT LEFT RADEX HIP UNILATERAL WITH PELVIS 2-3 VIEWS Sarah Pearson PA-C [id number] [facility] [address] [place] [address] Xr Imaging Referral ID Status Reason Start Date Expiration Date V isits Requested Visits Authorized [id number] Closed Auto-Generate d Referral 06/26/2022 07/26/2023 1 1 [facility] [place] for referral (narrative)* Diagnostic Procedure Only (Routine) - Closed Specialty Diagnoses / Procedures Referred By Contac t Referred To Contact XR IMAGING Diagnoses Pain in left hip Fall, initial encounter Procedures XR HIP GENERAL 3V PELV/AP/LAT LEFT RADEX HIP UNILATERAL WITH PELVIS 2-3 VIEWS Sarah Pearson PA-C [address] [address] Xr Imaging Referral ID Status Reason Start Date Expiration Date V isits Requested Visits Authorized [id number] Closed Auto-Generate d Referral 06/26/2022 07/26/2023 1 1 [facility] [place] for referral (narrative)* Diagnostic Procedure Only (Routine) - New Request Specialty Diagnoses / Procedures Referred By Contac t Referred To Contact XR IMAGING Diagnoses Osteoporosis, unspecified osteoporosis type, unspecified pathological fracture presence Procedures DXA-AXIAL SKELETON DXA BONE DENSITY STUDY 1/> SITES AXIAL SKEL Sarah Pearson PA-C [address] [place] [address] [place] [address] Referral ID Status Reason Start Date Expiration Date Visits Requested Visits Authorized [id number] New Request Auto-Generat ed Referral 06/14/2025 1 1 [facility] [place] for referral (narrative)No reason for referral information [facility] Narrative* Diagnostic Procedure Only (Routine) - Closed Specialty Diagnoses / Procedures Referred By Contac t Referred To Contact XR IMAGING Diagnoses Pain in left hip Fall, initial encounter Procedures XR HIP GENERAL 3V PELV/AP/LAT LEFT RADEX HIP UNILATERAL WITH PELVIS 2-3 VIEWS Sarah Pearson PA-C [address] [address] Xr Imaging Referral ID Status Reason Start Date Expiration Date V isits Requested Visits Authorized [id number] Closed Auto-Generate d Referral 06/26/2022 07/26/2023 1 1 [facility] [place] for visit Narrative* Diagnostic Procedure Only (Routine) - Closed Specialty Diagnoses / Procedures Referred By Contac t Referred To Contact XR IMAGING Diagnoses Osteoporosis, unspecified osteoporosis type, unspecified pathological fracture presence Procedures DXA-AXIAL SKELETON DXA BONE DENSITY STUDY / SITES AXIAL SKEL Sarah Pearson PA-C [address] [place] [address] [place] [address] Referral ID Status Reason Start Date Expiration Date V isits Requested Visits Authorized [id number] Closed Auto-Generate d Referral 05/15/2024 06/14/2025 1 1 [facility] [place] for visit Narrative* MRI/CT (Urgent) - Closed Specialty Diagnoses / Procedures Referred By Contac t Referred To Contact MR IMAGING Diagnoses Anal cancer (HCC) Procedures MRI PELVIS WO/W IVCON MRI PELVIS W/O & W/CONTRAST MATERIAL Josh Bennett DO [address] [place] [address] Phone: tel: fax: [place] [address] Referral ID Status Reason Start Date Expiration Date V isits Requested Visits Authorized [id number] Closed Auto-Generate d Referral 09/16/2024 10/16/2025 1 1 [facility] [place] for visit Narrative* Diagnostic Procedure Only (Routine) [...] José Cheema MD [address] [place] [address] Phone: tel: fax: [facility] [address] [place] [address] Referral ID Status Reason Start Date Expiration Date V isits Requested Visits Authorized [id number] Closed Auto-Generate d Referral 09/30/2024 10/30/2025 1 1 [facility] [place] for visit Narrative* MRI/CT (Routine) - Closed Specialty Diagnoses / Procedures Referred By Jordy nguyen Referred To Contact MR IMAGING Diagnoses Malignant neoplasm of anus (HCC) Anal cancer (HCC) Procedures MRI PELVIS WO/W IVCON MRI PELVIS W/O & W/CONTRAST MATERIAL Delvin Ron APRN.TRACY [address] [place] [address] Phone: tel: fax: [place] [address] Referral ID Status Reason Start Date Expiration Date V isits Requested Visits Authorized [id number] Closed Auto-Generate d Referral 02/01/2025 01/01/2026 1 1 [facility] Summary Purpose Family History No Family History Records Found Relationship Condition Age at Onset Recorded Date/T jay mother Asthma Unknown Hypertension Unknown Kidney disorder Unknown father Asthma Unknown Myocardial infarction Unknown daughter Asthma Unknown Diabetes mellitus Unknown sister Asthma Unknown Advance Directives No Advanced Directives Records FoundDocuments on File Type Date Recorded Patient Instructor Of Sociology Expl anation Advance Directive(s) 08/15/2021 1:41 PM [...] Documents on File Type Date Recorded Patient Instructor Of Sociology Expl anation Advance Directive(s) 08/15/2021 1:41 PM [...] Documents on File Type Date Recorded Patient Instructor Of Sociology Expl anation Advance Directive(s) 05/07/2019 9:13 AM Documents on File Type Date Recorded Patient Instructor Of Sociology Expl anation Advance Directive(s) 05/07/2019 9:13 AM Advance Directive Response Recorded Date/ Time Advance Directives No December 12 6 7:43pm Living Will No January 24, 2020 10:32am Power of Mission Planner No January 23 0 10:32am Advance Directive Response Recorded Date/ Time Advance Directives No December 12 6 8:43pm Living Will No January 24, 2020 11:32am Power of Mission Planner No January 23 0 11:32am Advance Directive Response Recorded Date/ Time Advance Directives No December 12 6 8:43pm Living Will No November 05, 2022 10:02am Power of Mission Planner No November 05 10:02am Advance Directive Response Recorded Date/ Time Advance Directives No December 12 6 8:43pm Living Will No January 09, 2023 2:02pm Power of Mission Planner No January 09 2:02pm Advance Directive Response Recorded Date/ Time Advance Directives No December 12 8:43pm Living Will Yes January 23, 2023 12:51pm Power of Mission Planner No January 23 12:51pm Advance Directive Response Recorded Date/ Time Advance Directives No December 12 7:43pm Living Will Yes January 23, 2023 11:51am Power of Mission Planner No January 23 11:51am Advance Directive Response Recorded Date/ Time Name of Medical Power of Mission Planner Anabel fontenot October 19, 2023 4:15pm Advance Directives No December 12 8:43pm Living Will Yes October 19, 2023 4:15pm Power of Mission Planner Yes October 18 4:15pm Documents on File Type Date Recorded Patient Instructor Of Sociology Expl anation Advance Directive(s) 10/13/2024 8:49 AM Documents on File Type Date Recorded Patient Instructor Of Sociology Expl anation Advance Directive(s) 10/13/2024 8:49 AM Advance Directive Response Recorded Date/ Time Living Will Yes March 17 8:51am Power of Mission Planner Yes March 17 024 8:51am Living Will Yes September 02 7:53pm Power of Mission Planner Yes September 02, 2024 7:53pm Name of Medical Power of Mission Planner Annabel keita September 02, 2024 7:53pm Living Will No September 24 025 8:18pm Power of Mission Planner No September 24, 2024 8:18pm Advance Directives No December 12 8:43pm Advance Directive Response Recorded Date/ Time Living Will Yes March 17 8:51am Do you have a Healthcare Pow er of Mission Planner? Yes March 17, 2024 8:51am Living Will Yes September 02 7:53pm Do you have a Healthcare Pow er of Mission Planner? Yes September 02, 2024 7:53pm Name of Medical Power of Mission Planner Annabel keita September 02, 2024 7:53pm Living Will No September 24 8:18pm Do you have a Healthcare Pow er of Mission Planner? No September 24, 2024 8:18pm Living Will Yes October 24, 2024 9:07pm Do you have a Healthcare Pow er of Mission Planner? Yes October 24, 2024 9:07pm Name of Medical Power of Mission Planner annabel banda may October 24, 2024 9:07pm Advance Directives No December 12 6 8:43pm Advance Directive Response Recorded Date/ Time Living Will Yes March 17 8:51am Do you have a Healthcare Pow er of Mission Planner? Yes March 17, 2024 8:51am Living Will Yes September 02 7:53pm Do you have a Healthcare Pow er of Mission Planner? Yes September 02, 2024 7:53pm Name of Medical Power of Mission Planner Annabeltereza Banda neela September 02, 2024 7:53pm Living Will No October 30, 2024 1:05am Do you have a Healthcare Pow er of Mission Planner? No October 30, 2024 1:05am Living Will No September 24 8:18pm Do you have a Healthcare Pow er of Mission Planner? No September 24, 2024 8:18pm Living Will Yes October 24, 2024 9:07pm Do you have a Healthcare Pow er of Mission Planner? Yes October 24, 2024 9:07pm Name of Medical Power of Mission Planner annabel banda may October 24, 2024 9:07pm Advance Directives No December 12 8:43pm Advance Directive Response Recorded Date/ Time Living Will Yes September 02 7:53pm Do you have a Healthcare Pow er of Mission Planner? Yes September 02, 2024 7:53pm Name of Medical Power of Mission Planner Annabel keita September 02, 2024 7:53pm Living Will No October 30, 2024 1:05am Do you have a Healthcare Pow er of Mission Planner? No October 30, 2024 1:05am Do you have a Healthcare Pow er of Mission Planner? No December 27, 2024 3:23pm Living Will No September 24 025 8:18pm Do you have a Healthcare Pow er of Mission Planner? No September 24, 2024 8:18pm Living Will Yes October 24, 2024 9:07pm Do you have a Healthcare Pow er of Mission Planner? Yes October 24, 2024 9:07pm Name of Medical Power of Mission Planner annabeltereza banda may October 24, 2024 9:07pm Advance Directives No December 12 6 8:43pm Advance Directive Response Recorded Date/ Time Living Will No October 30, 2024 1:05am Do you have a Healthcare Pow er of Mission Planner? No October 30, 2024 1:05am Do you have a Healthcare Pow er of Mission Planner? No December 27, 2024 3:23pm Living Will No September 24 8:18pm Do you have a Healthcare Pow er of Mission Planner? No September 24, 2024 8:18pm Living Will Yes October 24, 2024 9:07pm Do you have a Healthcare Pow er of Mission Planner? Yes October 24, 2024 9:07pm Name of Medical Power of Mission Planner annabel solo may October 24, 2024 9:07pm Advance Directives No December 12 6 8:43pm Advance Directive Response Recorded Date/ Time Living Will No October 30, 2024 1:05am Do you have a Healthcare Power of Mission Planner? No October 30, 2024 1:05am Do you have a Healthcare Power of Mission Planner? No December 27, 2024 3:23pm Living Will Yes October 24, 2024 9:07pm Do you have a Healthcare Power of Mission Planner? Yes October 24, 2024 9:07pm Name of Medical Power of Mission Planner annabel solo may October 24, 2024 9:07pm Advance Directives No December 12 6 8:43pm Advance Directive Response Recorded Date/ Time Living Will No October 30, 2024 1:05am Do you have a Healthcare Pow er of Mission Planner? No October 30, 2024 1:05am Do you have a Healthcare Pow er of Mission Planner? No December 27, 2024 3:23pm Do you have a Healthcare Pow er of Mission Planner? Yes February 27, 2025 5:52pm Name of Medical Power of Mission Planner magda olvera daughter February 27, 2025 5:52pm Advance Directives No December 12 8:43pm Advance Directive Response Recorded Date/ Time Do you have a Healthcare Pow er of Mission Planner? No December 27, 2024 3:23pm Do you have a Healthcare Pow er of Mission Planner? Yes February 24, 2025 2:24pm Do you have a Healthcare Pow er of Mission Planner? Yes February 27, 2025 5:52pm Name of Medical Power of Mission Planner magda olvera daughter February 27, 2025 5:52pm [...] am Irritable bowel syndrome with diarrhea [facility] 2024 8:19am Chief Complaint Admit Date RULE [...] am Irritable bowel syndrome with diarrhea [facility] 2024 8:19am Diarrhea February 02, 2025 10:53 [...] am Irritable bowel syndrome with diarrhea [facility] 2024 8:19am Diarrhea February 02, 2025 10:53 [...] am Irritable bowel syndrome with diarrhea [facility] 2024 8:19am Diarrhea February 02, 2025 10:53 [...] anemia type Procedures CONSULT TO HEMATOLOGY OFFICE/OUTPATIENT [facility] 60 MINUTES Sarah Pearson, LIZZIE [address] [place] [address] Referral ID Status Reason Start Date Expiration Date Visits Requested Visits Authorized [id number] Authorized PCP Requested Referral 05/29/2024 08/27/2024 1 1 Additional Source Comments INFORMATION SOURCE (unrecogn ized section and content) DATE CREATED AUTHOR 10/05/2019 [facility] DATE CREATED AUTHOR AUTHOR'S ORGANIZ ATION 05/08/2021 [facility] DATE CREATED AUTHOR AUTHOR'S ORGANIZ ATION 04/05/2022 [facility] ([place]) DATE CREATED AUTHOR AUTHOR'S ORGANIZ ATION 06/30/2024 [facility] DATE CREATED AUTHOR AUTHOR'S ORGANIZ ATION 11/04/2024 [facility] DATE CREATED AUTHOR AUTHOR'S ORGANIZ ATION 12/09/2024 [facility] DATE CREATED AUTHOR AUTHOR'S ORGANIZ ATION 03/20/2025 [facility] DATE CREATED AUTHOR AUTHOR'S ORGANIZ ATION 03/25/2025 [facility] Source Comments (unrecognize d section and content) In the event this informatio n is protected by the Federal Confidentiality of Alcohol and Drug Abuse Patient Records regulations: The Federal rules restrict any use of the information to criminally investigate or prosecute any alcohol or drug abuse patient.[facility] the event this information is protected by the Federal Confidentiality of Alcohol and Drug Abuse Patient Records regulations: The Federal rules restrict any use of the information to criminally investigate or prosecute any alcohol or drug abuse patient.[facility] CenterIn the event this information is protected by the Federal Confidentiality of Alcohol and Drug Abuse Patient Records regulations: The Federal rules restrict any use of the information to criminally investigate or prosecute any alcohol or drug abuse patient.[facility] Center[facility] the event this information is protected by the Federal Confidentiality of Alcohol and Drug Abuse Patient Records regulations: The Federal rules restrict any use of the information to criminally investigate or prosecute any alcohol or drug abuse patient.[facility] Center[facility] the event this information is protected by the Federal Confidentiality of Alcohol and Drug Abuse Patient Records regulations: The Federal rules restrict any use of the information to criminally investigate or prosecute any alcohol or drug abuse patient.[facility] Center[facility] the event this information is protected by the Federal Confidentiality of Alcohol and Drug Abuse Patient Records regulations: The Federal rules restrict any use of the information to criminally investigate or prosecute any alcohol or drug abuse patient.[facility] CenterIn the event this information is protected by the Federal Confidentiality of Alcohol and Drug Abuse Patient Records regulations: The Federal rules restrict any use of the information to criminally investigate or prosecute any alcohol or drug abuse patient.[facility] CenterIn the event this information is protected by the Federal Confidentiality of Alcohol and Drug Abuse Patient Records regulations: The Federal rules restrict any use of the information to criminally investigate or prosecute any alcohol or drug abuse patient.[facility] CenterIn the event this information is protected by the Federal Confidentiality of Alcohol and Drug Abuse Patient Records regulations: The Federal rules restrict any use of the information to criminally investigate or prosecute any alcohol or drug abuse patient.[facility] CenterIn the event this information is protected by the Federal Confidentiality of Alcohol and Drug Abuse Patient Records regulations: The Federal rules restrict any use of the information to criminally investigate or prosecute any alcohol or drug abuse patient.[facility] CenterIn the event this information is protected by the Federal Confidentiality of Alcohol and Drug Abuse Patient Records regulations: The Federal rules restrict any use of the information to criminally investigate or prosecute any alcohol or drug abuse patient.[facility] CenterIn the event this information is protected by the Federal Confidentiality of Alcohol and Drug Abuse Patient Records regulations: The Federal rules restrict any use of the information to criminally investigate or prosecute any alcohol or drug abuse patient.[facility] CenterIn the event this information is protected by the Federal Confidentiality of Alcohol and Drug Abuse Patient Records regulations: The Federal rules restrict any use of the information to criminally investigate or prosecute any alcohol or drug abuse patient.[facility] CenterIn the event this information is protected by the Federal Confidentiality of Alcohol and Drug Abuse Patient Records regulations: The Federal rules restrict any use of the information to criminally investigate or prosecute any alcohol or drug abuse patient.[facility] CenterIn the event this information is protected by the Federal Confidentiality of Alcohol and Drug Abuse Patient Records regulations: The Federal rules restrict any use of the information to criminally investigate or prosecute any alcohol or drug abuse patient.[facility] CenterIn the event this information is protected by the Federal Confidentiality of Alcohol and Drug Abuse Patient Records regulations: The Federal rules restrict any use of the information to criminally investigate or prosecute any alcohol or drug abuse patient.[facility] CenterIn the event this information is protected by the Federal Confidentiality of Alcohol and Drug Abuse Patient Records regulations: The Federal rules restrict any use of the information to criminally investigate or prosecute any alcohol or drug abuse patient.[facility] CenterIn the event this information is protected by the Federal Confidentiality of Alcohol and Drug Abuse Patient Records regulations: The Federal rules restrict any use of the information to criminally investigate or prosecute any alcohol or drug abuse patient.[facility] CenterIn the event this information is protected by the Federal Confidentiality of Alcohol and Drug Abuse Patient Records regulations: The Federal rules restrict any use of the information to criminally investigate or prosecute any alcohol or drug abuse patient.[facility] CenterIn the event this information is protected by the Federal Confidentiality of Alcohol and Drug Abuse Patient Records regulations: The Federal rules restrict any use of the information to criminally investigate or prosecute any alcohol or drug abuse patient.[facility] CenterIn the event this information is protected by the Federal Confidentiality of Alcohol and Drug Abuse Patient Records regulations: The Federal rules restrict any use of the information to criminally investigate or prosecute any alcohol or drug abuse patient.[facility] CenterIn the event this information is protected by the Federal Confidentiality of Alcohol and Drug Abuse Patient Records regulations: The Federal rules restrict any use of the information to criminally investigate or prosecute any alcohol or drug abuse patient.[facility] CenterIn the event this information is protected by the Federal Confidentiality of Alcohol and Drug Abuse Patient Records regulations: The Federal rules restrict any use of the information to criminally investigate or prosecute any alcohol or drug abuse patient.[facility] CenterIn the event this information is protected by the Federal Confidentiality of Alcohol and Drug Abuse Patient Records regulations: The Federal rules restrict any use of the information to criminally investigate or prosecute any alcohol or drug abuse patient.[facility] CenterIn the event this information is protected by the Federal Confidentiality of Alcohol and Drug Abuse Patient Records regulations: The Federal rules restrict any use of the information to criminally investigate or prosecute any alcohol or drug abuse patient.[facility] CenterIn the event this information is protected by the Federal Confidentiality of Alcohol and Drug Abuse Patient Records regulations: The Federal rules restrict any use of the information to criminally investigate or prosecute any alcohol or drug abuse patient.[facility] CenterIn the event this information is protected by the Federal Confidentiality of Alcohol and Drug Abuse Patient Records regulations: The Federal rules restrict any use of the information to criminally investigate or prosecute any alcohol or drug abuse patient.[facility] CenterIn the event this information is protected by the Federal Confidentiality of Alcohol and Drug Abuse Patient Records regulations: The Federal rules restrict any use of the information to criminally investigate or prosecute any alcohol or drug abuse patient.[facility] CenterIn the event this information is protected by the Federal Confidentiality of Alcohol and Drug Abuse Patient Records regulations: The Federal rules restrict any use of the information to criminally investigate or prosecute any alcohol or drug abuse patient.[facility] CenterIn the event this information is protected by the Federal Confidentiality of Alcohol and Drug Abuse Patient Records regulations: The Federal rules restrict any use of the information to criminally investigate or prosecute any alcohol or drug abuse patient.[facility] CenterIn the event this information is protected by the Federal Confidentiality of Alcohol and Drug Abuse Patient Records regulations: The Federal rules restrict any use of the information to criminally investigate or prosecute any alcohol or drug abuse patient.[facility] CenterIn the event this information is protected by the Federal Confidentiality of Alcohol and Drug Abuse Patient Records regulations: The Federal rules restrict any use of the information to criminally investigate or prosecute any alcohol or drug abuse patient.[facility] CenterIn the event this information is protected by the Federal Confidentiality of Alcohol and Drug Abuse Patient Records regulations: The Federal rules restrict any use of the information to criminally investigate or prosecute any alcohol or drug abuse patient.[facility] CenterIn the event this information is protected by the Federal Confidentiality of Alcohol and Drug Abuse Patient Records regulations: The Federal rules restrict any use of the information to criminally investigate or prosecute any alcohol or drug abuse patient.[facility] CenterIn the event this information is protected by the Federal Confidentiality of Alcohol and Drug Abuse Patient Records regulations: The Federal rules restrict any use of the information to criminally investigate or prosecute any alcohol or drug abuse patient.[facility] CenterIn the event this information is protected by the Federal Confidentiality of Alcohol and Drug Abuse Patient Records regulations: The Federal rules restrict any use of the information to criminally investigate or prosecute any alcohol or drug abuse patient.[facility] CenterIn the event this information is protected by the Federal Confidentiality of Alcohol and Drug Abuse Patient Records regulations: The Federal rules restrict any use of the information to criminally investigate or prosecute any alcohol or drug abuse patient.[facility] CenterIn the event this information is protected by the Federal Confidentiality of Alcohol and Drug Abuse Patient Records regulations: The Federal rules restrict any use of the information to criminally investigate or prosecute any alcohol or drug abuse patient.[facility] CenterIn the event this information is protected by the Federal Confidentiality of Alcohol and Drug Abuse Patient Records regulations: The Federal rules restrict any use of the information to criminally investigate or prosecute any alcohol or drug abuse patient.[facility] CenterIn the event this information is protected by the Federal Confidentiality of Alcohol and Drug Abuse Patient Records regulations: The Federal rules restrict any use of the information to criminally investigate or prosecute any alcohol or drug abuse patient.[facility] CenterIn the event this information is protected by the Federal Confidentiality of Alcohol and Drug Abuse Patient Records regulations: The Federal rules restrict any use of the information to criminally investigate or prosecute any alcohol or drug abuse patient.[facility] CenterIn the event this information is protected by the Federal Confidentiality of Alcohol and Drug Abuse Patient Records regulations: The Federal rules restrict any use of the information to criminally investigate or prosecute any alcohol or drug abuse patient.[facility] CenterIn the event this information is protected by the Federal Confidentiality of Alcohol and Drug Abuse Patient Records regulations: The Federal rules restrict any use of the information to criminally investigate or prosecute any alcohol or drug abuse patient.[facility] CenterIn the event this information is protected by the Federal Confidentiality of Alcohol and Drug Abuse Patient Records regulations: The Federal rules restrict any use of the information to criminally investigate or prosecute any alcohol or drug abuse patient.[facility] CenterIn the event this information is protected by the Federal Confidentiality of Alcohol and Drug Abuse Patient Records regulations: The Federal rules restrict any use of the information to criminally investigate or prosecute any alcohol or drug abuse patient.[facility] CenterIn the event this information is protected by the Federal Confidentiality of Alcohol and Drug Abuse Patient Records regulations: The Federal rules restrict any use of the information to criminally investigate or prosecute any alcohol or drug abuse patient.[facility] CenterIn the event this information is protected by the Federal Confidentiality of Alcohol and Drug Abuse Patient Records regulations: The Federal rules restrict any use of the information to criminally investigate or prosecute any alcohol or drug abuse patient.[facility] CenterIn the event this information is protected by the Federal Confidentiality of Alcohol and Drug Abuse Patient Records regulations: The Federal rules restrict any use of the information to criminally investigate or prosecute any alcohol or drug abuse patient.[facility] CenterIn the event this information is protected by the Federal Confidentiality of Alcohol and Drug Abuse Patient Records regulations: The Federal rules restrict any use of the information to criminally investigate or prosecute any alcohol or drug abuse patient.[facility] CenterIn the event this information is protected by the Federal Confidentiality of Alcohol and Drug Abuse Patient Records regulations: The Federal rules restrict any use of the information to criminally investigate or prosecute any alcohol or drug abuse patient.[facility] CenterIn the event this information is protected by the Federal Confidentiality of Alcohol and Drug Abuse Patient Records regulations: The Federal rules restrict any use of the information to criminally investigate or prosecute any alcohol or drug abuse patient.[facility] CenterIn the event this information is protected by the Federal Confidentiality of Alcohol and Drug Abuse Patient Records regulations: The Federal rules restrict any use of the information to criminally investigate or prosecute any alcohol or drug abuse patient.[facility] CenterIn the event this information is protected by the Federal Confidentiality of Alcohol and Drug Abuse Patient Records regulations: The Federal rules restrict any use of the information to criminally investigate or prosecute any alcohol or drug abuse patient.[facility] CenterIn the event this information is protected by the Federal Confidentiality of Alcohol and Drug Abuse Patient Records regulations: The Federal rules restrict any use of the information to criminally investigate or prosecute any alcohol or drug abuse patient.[facility] CenterIn the event this information is protected by the Federal Confidentiality of Alcohol and Drug Abuse Patient Records regulations: The Federal rules restrict any use of the information to criminally investigate or prosecute any alcohol or drug abuse patient.[facility] CenterIn the event this information is protected by the Federal Confidentiality of Alcohol and Drug Abuse Patient Records regulations: The Federal rules restrict any use of the information to criminally investigate or prosecute any alcohol or drug abuse patient.[facility] CenterIn the event this information is protected by the Federal Confidentiality of Alcohol and Drug Abuse Patient Records regulations: The Federal rules restrict any use of the information to criminally investigate or prosecute any alcohol or drug abuse patient.[facility] CenterIn the event this information is protected by the Federal Confidentiality of Alcohol and Drug Abuse Patient Records regulations: The Federal rules restrict any use of the information to criminally investigate or prosecute any alcohol or drug abuse patient.[facility] CenterIn the event this information is protected by the Federal Confidentiality of Alcohol and Drug Abuse Patient Records regulations: The Federal rules restrict any use of the information to criminally investigate or prosecute any alcohol or drug abuse patient.[facility] CenterIn the event this information is protected by the Federal Confidentiality of Alcohol and Drug Abuse Patient Records regulations: The Federal rules restrict any use of the information to criminally investigate or prosecute any alcohol or drug abuse patient.[facility] CenterIn the event this information is protected by the Federal Confidentiality of Alcohol and Drug Abuse Patient Records regulations: The Federal rules restrict any use of the information to criminally investigate or prosecute any alcohol or drug abuse patient.[facility] CenterIn the event this information is protected by the Federal Confidentiality of Alcohol and Drug Abuse Patient Records regulations: The Federal rules restrict any use of the information to criminally investigate or prosecute any alcohol or drug abuse patient.[facility] CenterIn the event this information is protected by the Federal Confidentiality of Alcohol and Drug Abuse Patient Records regulations: The Federal rules restrict any use of the information to criminally investigate or prosecute any alcohol or drug abuse patient.[facility] CenterIn the event this information is protected by the Federal Confidentiality of Alcohol and Drug Abuse Patient Records regulations: The Federal rules restrict any use of the information to criminally investigate or prosecute any alcohol or drug abuse patient.[facility] CenterIn the event this information is protected by the Federal Confidentiality of Alcohol and Drug Abuse Patient Records regulations: The Federal rules restrict any use of the information to criminally investigate or prosecute any alcohol or drug abuse patient.[facility] CenterIn the event this information is protected by the Federal Confidentiality of Alcohol and Drug Abuse Patient Records regulations: The Federal rules restrict any use of the information to criminally investigate or prosecute any alcohol or drug abuse patient.[facility] CenterIn the event this information is protected by the Federal Confidentiality of Alcohol and Drug Abuse Patient Records regulations: The Federal rules restrict any use of the information to criminally investigate or prosecute any alcohol or drug abuse patient.[facility] CenterIn the event this information is protected by the Federal Confidentiality of Alcohol and Drug Abuse Patient Records regulations: The Federal rules restrict any use of the information to criminally investigate or prosecute any alcohol or drug abuse patient.[facility] CenterIn the event this information is protected by the Federal Confidentiality of Alcohol and Drug Abuse Patient Records regulations: The Federal rules restrict any use of the information to criminally investigate or prosecute any alcohol or drug abuse patient.[facility] CenterIn the event this information is protected by the Federal Confidentiality of Alcohol and Drug Abuse Patient Records regulations: The Federal rules restrict any use of the information to criminally investigate or prosecute any alcohol or drug abuse patient.[facility] CenterIn the event this information is protected by the Federal Confidentiality of Alcohol and Drug Abuse Patient Records regulations: The Federal rules restrict any use of the information to criminally investigate or prosecute any alcohol or drug abuse patient.[facility] CenterIn the event this information is protected by the Federal Confidentiality of Alcohol and Drug Abuse Patient Records regulations: The Federal rules restrict any use of the information to criminally investigate or prosecute any alcohol or drug abuse patient.[facility] CenterIn the event this information is protected by the Federal Confidentiality of Alcohol and Drug Abuse Patient Records regulations: The Federal rules restrict any use of the information to criminally investigate or prosecute any alcohol or drug abuse patient.[facility] CenterIn the event this information is protected by the Federal Confidentiality of Alcohol and Drug Abuse Patient Records regulations: The Federal rules restrict any use of the information to criminally investigate or prosecute any alcohol or drug abuse patient.[facility] CenterIn the event this information is protected by the Federal Confidentiality of Alcohol and Drug Abuse Patient Records regulations: The Federal rules restrict any use of the information to criminally investigate or prosecute any alcohol or drug abuse patient.[facility] CenterIn the event this information is protected by the Federal Confidentiality of Alcohol and Drug Abuse Patient Records regulations: The Federal rules restrict any use of the information to criminally investigate or prosecute any alcohol or drug abuse patient.[facility] CenterIn the event this information is protected by the Federal Confidentiality of Alcohol and Drug Abuse Patient Records regulations: The Federal rules restrict any use of the information to criminally investigate or prosecute any alcohol or drug abuse patient.[facility] CenterIn the event this information is protected by the Federal Confidentiality of Alcohol and Drug Abuse Patient Records regulations: The Federal rules restrict any use of the information to criminally investigate or prosecute any alcohol or drug abuse patient.[facility] CenterIn the event this information is protected by the Federal Confidentiality of Alcohol and Drug Abuse Patient Records regulations: The Federal rules restrict any use of the information to criminally investigate or prosecute any alcohol or drug abuse patient.[facility] CenterIn the event this information is protected by the Federal Confidentiality of Alcohol and Drug Abuse Patient Records regulations: The Federal rules restrict any use of the information to criminally investigate or prosecute any alcohol or drug abuse patient.[facility] CenterIn the event this information is protected by the Federal Confidentiality of Alcohol and Drug Abuse Patient Records regulations: The Federal rules restrict any use of the information to criminally investigate or prosecute any alcohol or drug abuse patient.[facility] CenterIn the event this information is protected by the Federal Confidentiality of Alcohol and Drug Abuse Patient Records regulations: The Federal rules restrict any use of the information to criminally investigate or prosecute any alcohol or drug abuse patient.[facility] CenterIn the event this information is protected by the Federal Confidentiality of Alcohol and Drug Abuse Patient Records regulations: The Federal rules restrict any use of the information to criminally investigate or prosecute any alcohol or drug abuse patient.[facility] CenterIn the event this information is protected by the Federal Confidentiality of Alcohol and Drug Abuse Patient Records regulations: The Federal rules restrict any use of the information to criminally investigate or prosecute any alcohol or drug abuse patient.[facility] CenterIn the event this information is protected by the Federal Confidentiality of Alcohol and Drug Abuse Patient Records regulations: The Federal rules restrict any use of the information to criminally investigate or prosecute any alcohol or drug abuse patient.[facility] CenterIn the event this information is protected by the Federal Confidentiality of Alcohol and Drug Abuse Patient Records regulations: The Federal rules restrict any use of the information to criminally investigate or prosecute any alcohol or drug abuse patient.[facility] CenterIn the event this information is protected by the Federal Confidentiality of Alcohol and Drug Abuse Patient Records regulations: The Federal rules restrict any use of the information to criminally investigate or prosecute any alcohol or drug abuse patient.[facility] CenterIn the event this information is protected by the Federal Confidentiality of Alcohol and Drug Abuse Patient Records regulations: The Federal rules restrict any use of the information to criminally investigate or prosecute any alcohol or drug abuse patient.[facility] CenterIn the event this information is protected by the Federal Confidentiality of Alcohol and Drug Abuse Patient Records regulations: The Federal rules restrict any use of the information to criminally investigate or prosecute any alcohol or drug abuse patient.[facility] CenterIn the event this information is protected by the Federal Confidentiality of Alcohol and Drug Abuse Patient Records regulations: The Federal rules restrict any use of the information to criminally investigate or prosecute any alcohol or drug abuse patient.[facility] CenterIn the event this information is protected by the Federal Confidentiality of Alcohol and Drug Abuse Patient Records regulations: The Federal rules restrict any use of the information to criminally investigate or prosecute any alcohol or drug abuse patient.[facility] CenterIn the event this information is protected by the Federal Confidentiality of Alcohol and Drug Abuse Patient Records regulations: The Federal rules restrict any use of the information to criminally investigate or prosecute any alcohol or drug abuse patient.[facility] CenterIn the event this information is protected by the Federal Confidentiality of Alcohol and Drug Abuse Patient Records regulations: The Federal rules restrict any use of the information to criminally investigate or prosecute any alcohol or drug abuse patient.[facility] CenterIn the event this information is protected by the Federal Confidentiality of Alcohol and Drug Abuse Patient Records regulations: The Federal rules restrict any use of the information to criminally investigate or prosecute any alcohol or drug abuse patient.[facility] CenterIn the event this information is protected by the Federal Confidentiality of Alcohol and Drug Abuse Patient Records regulations: The Federal rules restrict any use of the information to criminally investigate or prosecute any alcohol or drug abuse patient.[facility] CenterIn the event this information is protected by the Federal Confidentiality of Alcohol and Drug Abuse Patient Records regulations: The Federal rules restrict any use of the information to criminally investigate or prosecute any alcohol or drug abuse patient.[facility] CenterIn the event this information is protected by the Federal Confidentiality of Alcohol and Drug Abuse Patient Records regulations: The Federal rules restrict any use of the information to criminally investigate or prosecute any alcohol or drug abuse patient.[facility] CenterIn the event this information is protected by the Federal Confidentiality of Alcohol and Drug Abuse Patient Records regulations: The Federal rules restrict any use of the information to criminally investigate or prosecute any alcohol or drug abuse patient.[facility] CenterIn the event this information is protected by the Federal Confidentiality of Alcohol and Drug Abuse Patient Records regulations: The Federal rules restrict any use of the information to criminally investigate or prosecute any alcohol or drug abuse patient.[facility] CenterIn the event this information is protected by the Federal Confidentiality of Alcohol and Drug Abuse Patient Records regulations: The Federal rules restrict any use of the information to criminally investigate or prosecute any alcohol or drug abuse patient.[facility] CenterIn the event this information is protected by the Federal Confidentiality of Alcohol and Drug Abuse Patient Records regulations: The Federal rules restrict any use of the information to criminally investigate or prosecute any alcohol or drug abuse patient.[facility] CenterIn the event this information is protected by the Federal Confidentiality of Alcohol and Drug Abuse Patient Records regulations: The Federal rules restrict any use of the information to criminally investigate or prosecute any alcohol or drug abuse patient.[facility] CenterIn the event this information is protected by the Federal Confidentiality of Alcohol and Drug Abuse Patient Records regulations: The Federal rules restrict any use of the information to criminally investigate or prosecute any alcohol or drug abuse patient.[facility] CenterIn the event this information is protected by the Federal Confidentiality of Alcohol and Drug Abuse Patient Records regulations: The Federal rules restrict any use of the information to criminally investigate or prosecute any alcohol or drug abuse patient.[facility] CenterIn the event this information is protected by the Federal Confidentiality of Alcohol and Drug Abuse Patient Records regulations: The Federal rules restrict any use of the information to criminally investigate or prosecute any alcohol or drug abuse patient.[facility] CenterIn the event this information is protected by the Federal Confidentiality of Alcohol and Drug Abuse Patient Records regulations: The Federal rules restrict any use of the information to criminally investigate or prosecute any alcohol or drug abuse patient.[facility] CenterIn the event this information is protected by the Federal Confidentiality of Alcohol and Drug Abuse Patient Records regulations: The Federal rules restrict any use of the information to criminally investigate or prosecute any alcohol or drug abuse patient.[facility] CenterIn the event this information is protected by the Federal Confidentiality of Alcohol and Drug Abuse Patient Records regulations: The Federal rules restrict any use of the information to criminally investigate or prosecute any alcohol or drug abuse patient.[facility] CenterIn the event this information is protected by the Federal Confidentiality of Alcohol and Drug Abuse Patient Records regulations: The Federal rules restrict any use of the information to criminally investigate or prosecute any alcohol or drug abuse patient.[facility] CenterIn the event this information is protected by the Federal Confidentiality of Alcohol and Drug Abuse Patient Records regulations: The Federal rules restrict any use of the information to criminally investigate or prosecute any alcohol or drug abuse patient.[facility] CenterIn the event this information is protected by the Federal Confidentiality of Alcohol and Drug Abuse Patient Records regulations: The Federal rules restrict any use of the information to criminally investigate or prosecute any alcohol or drug abuse patient.[facility] CenterIn the event this information is protected by the Federal Confidentiality of Alcohol and Drug Abuse Patient Records regulations: The Federal rules restrict any use of the information to criminally investigate or prosecute any alcohol or drug abuse patient.[facility] CenterIn the event this information is protected by the Federal Confidentiality of Alcohol and Drug Abuse Patient Records regulations: The Federal rules restrict any use of the information to criminally investigate or prosecute any alcohol or drug abuse patient.[facility] CenterIn the event this information is protected by the Federal Confidentiality of Alcohol and Drug Abuse Patient Records regulations: The Federal rules restrict any use of the information to criminally investigate or prosecute any alcohol or drug abuse patient.[facility] CenterIn the event this information is protected by the Federal Confidentiality of Alcohol and Drug Abuse Patient Records regulations: The Federal rules restrict any use of the information to criminally investigate or prosecute any alcohol or drug abuse patient.[facility] CenterIn the event this information is protected by the Federal Confidentiality of Alcohol and Drug Abuse Patient Records regulations: The Federal rules restrict any use of the information to criminally investigate or prosecute any alcohol or drug abuse patient.[facility] CenterIn the event this information is protected by the Federal Confidentiality of Alcohol and Drug Abuse Patient Records regulations: The Federal rules restrict any use of the information to criminally investigate or prosecute any alcohol or drug abuse patient.[facility] CenterIn the event this information is protected by the Federal Confidentiality of Alcohol and Drug Abuse Patient Records regulations: The Federal rules restrict any use of the information to criminally investigate or prosecute any alcohol or drug abuse patient.[facility] CenterIn the event this information is protected by the Federal Confidentiality of Alcohol and Drug Abuse Patient Records regulations: The Federal rules restrict any use of the information to criminally investigate or prosecute any alcohol or drug abuse patient.[facility] CenterIn the event this information is protected by the Federal Confidentiality of Alcohol and Drug Abuse Patient Records regulations: The Federal rules restrict any use of the information to criminally investigate or prosecute any alcohol or drug abuse patient.[facility] CenterIn the event this information is protected by the Federal Confidentiality of Alcohol and Drug Abuse Patient Records regulations: The Federal rules restrict any use of the information to criminally investigate or prosecute any alcohol or drug abuse patient.[facility] CenterIn the event this information is protected by the Federal Confidentiality of Alcohol and Drug Abuse Patient Records regulations: The Federal rules restrict any use of the information to criminally investigate or prosecute any alcohol or drug abuse patient.[facility] CenterIn the event this information is protected by the Federal Confidentiality of Alcohol and Drug Abuse Patient Records regulations: The Federal rules restrict any use of the information to criminally investigate or prosecute any alcohol or drug abuse patient.[facility] CenterIn the event this information is protected by the Federal Confidentiality of Alcohol and Drug Abuse Patient Records regulations: The Federal rules restrict any use of the information to criminally investigate or prosecute any alcohol or drug abuse patient.[facility] CenterIn the event this information is protected by the Federal Confidentiality of Alcohol and Drug Abuse Patient Records regulations: The Federal rules restrict any use of the information to criminally investigate or prosecute any alcohol or drug abuse patient.[facility] CenterIn the event this information is protected by the Federal Confidentiality of Alcohol and Drug Abuse Patient Records regulations: The Federal rules restrict any use of the information to criminally investigate or prosecute any alcohol or drug abuse patient.[facility] CenterIn the event this information is protected by the Federal Confidentiality of Alcohol and Drug Abuse Patient Records regulations: The Federal rules restrict any use of the information to criminally investigate or prosecute any alcohol or drug abuse patient.[facility] CenterIn the event this information is protected by the Federal Confidentiality of Alcohol and Drug Abuse Patient Records regulations: The Federal rules restrict any use of the information to criminally investigate or prosecute any alcohol or drug abuse patient.[facility] CenterIn the event this information is protected by the Federal Confidentiality of Alcohol and Drug Abuse Patient Records regulations: The Federal rules restrict any use of the information to criminally investigate or prosecute any alcohol or drug abuse patient.[facility] CenterIn the event this information is protected by the Federal Confidentiality of Alcohol and Drug Abuse Patient Records regulations: The Federal rules restrict any use of the information to criminally investigate or prosecute any alcohol or drug abuse patient.[facility] CenterIn the event this information is protected by the Federal Confidentiality of Alcohol and Drug Abuse Patient Records regulations: The Federal rules restrict any use of the information to criminally investigate or prosecute any alcohol or drug abuse patient.[facility] CenterIn the event this information is protected by the Federal Confidentiality of Alcohol and Drug Abuse Patient Records regulations: The Federal rules restrict any use of the information to criminally investigate or prosecute any alcohol or drug abuse patient.[facility] CenterIn the event this information is protected by the Federal Confidentiality of Alcohol and Drug Abuse Patient Records regulations: The Federal rules restrict any use of the information to criminally investigate or prosecute any alcohol or drug abuse patient.[facility] CenterIn the event this information is protected by the Federal Confidentiality of Alcohol and Drug Abuse Patient Records regulations: The Federal rules restrict any use of the information to criminally investigate or prosecute any alcohol or drug abuse patient.[facility] CenterIn the event this information is protected by the Federal Confidentiality of Alcohol and Drug Abuse Patient Records regulations: The Federal rules restrict any use of the information to criminally investigate or prosecute any alcohol or drug abuse patient.[facility] CenterIn the event this information is protected by the Federal Confidentiality of Alcohol and Drug Abuse Patient Records regulations: The Federal rules restrict any use of the information to criminally investigate or prosecute any alcohol or drug abuse patient.[facility] CenterIn the event this information is protected by the Federal Confidentiality of Alcohol and Drug Abuse Patient Records regulations: The Federal rules restrict any use of the information to criminally investigate or prosecute any alcohol or drug abuse patient.[facility] CenterIn the event this information is protected by the Federal Confidentiality of Alcohol and Drug Abuse Patient Records regulations: The Federal rules restrict any use of the information to criminally investigate or prosecute any alcohol or drug abuse patient.[facility] CenterIn the event this information is protected by the Federal Confidentiality of Alcohol and Drug Abuse Patient Records regulations: The Federal rules restrict any use of the information to criminally investigate or prosecute any alcohol or drug abuse patient.[facility] CenterIn the event this information is protected by the Federal Confidentiality of Alcohol and Drug Abuse Patient Records regulations: The Federal rules restrict any use of the information to criminally investigate or prosecute any alcohol or drug abuse patient.[facility] CenterIn the event this information is protected by the Federal Confidentiality of Alcohol and Drug Abuse Patient Records regulations: The Federal rules restrict any use of the information to criminally investigate or prosecute any alcohol or drug abuse patient.[facility] CenterIn the event this information is protected by the Federal Confidentiality of Alcohol and Drug Abuse Patient Records regulations: The Federal rules restrict any use of the information to criminally investigate or prosecute any alcohol or drug abuse patient.[facility] CenterIn the event this information is protected by the Federal Confidentiality of Alcohol and Drug Abuse Patient Records regulations: The Federal rules restrict any use of the information to criminally investigate or prosecute any alcohol or drug abuse patient.[facility] CenterIn the event this information is protected by the Federal Confidentiality of Alcohol and Drug Abuse Patient Records regulations: The Federal rules restrict any use of the information to criminally investigate or prosecute any alcohol or drug abuse patient.[facility] CenterIn the event this information is protected by the Federal Confidentiality of Alcohol and Drug Abuse Patient Records regulations: The Federal rules restrict any use of the information to criminally investigate or prosecute any alcohol or drug abuse patient.[facility] CenterIn the event this information is protected by the Federal Confidentiality of Alcohol and Drug Abuse Patient Records regulations: The Federal rules restrict any use of the information to criminally investigate or prosecute any alcohol or drug abuse patient.[facility] CenterIn the event this information is protected by the Federal Confidentiality of Alcohol and Drug Abuse Patient Records regulations: The Federal rules restrict any use of the information to criminally investigate or prosecute any alcohol or drug abuse patient.[facility] CenterIn the event this information is protected by the Federal Confidentiality of Alcohol and Drug Abuse Patient Records regulations: The Federal rules restrict any use of the information to criminally investigate or prosecute any alcohol or drug abuse patient.[facility] CenterIn the event this information is protected by the Federal Confidentiality of Alcohol and Drug Abuse Patient Records regulations: The Federal rules restrict any use of the information to criminally investigate or prosecute any alcohol or drug abuse patient.[facility] CenterIn the event this information is protected by the Federal Confidentiality of Alcohol and Drug Abuse Patient Records regulations: The Federal rules restrict any use of the information to criminally investigate or prosecute any alcohol or drug abuse patient.[facility] CenterIn the event this information is protected by the Federal Confidentiality of Alcohol and Drug Abuse Patient Records regulations: The Federal rules restrict any use of the information to criminally investigate or prosecute any alcohol or drug abuse patient.[facility] CenterIn the event this information is protected by the Federal Confidentiality of Alcohol and Drug Abuse Patient Records regulations: The Federal rules restrict any use of the information to criminally investigate or prosecute any alcohol or drug abuse patient.[facility] CenterIn the event this information is protected by the Federal Confidentiality of Alcohol and Drug Abuse Patient Records regulations: The Federal rules restrict any use of the information to criminally investigate or prosecute any alcohol or drug abuse patient.[facility] CenterIn the event this information is protected by the Federal Confidentiality of Alcohol and Drug Abuse Patient Records regulations: The Federal rules restrict any use of the information to criminally investigate or prosecute any alcohol or drug abuse patient.[facility] CenterIn the event this information is protected by the Federal Confidentiality of Alcohol and Drug Abuse Patient Records regulations: The Federal rules restrict any use of the information to criminally investigate or prosecute any alcohol or drug abuse patient.[facility] CenterIn the event this information is protected by the Federal Confidentiality of Alcohol and Drug Abuse Patient Records regulations: The Federal rules restrict any use of the information to criminally investigate or prosecute any alcohol or drug abuse patient.[facility] CenterIn the event this information is protected by the Federal Confidentiality of Alcohol and Drug Abuse Patient Records regulations: The Federal rules restrict any use of the information to criminally investigate or prosecute any alcohol or drug abuse patient.[facility] CenterIn the event this information is protected by the Federal Confidentiality of Alcohol and Drug Abuse Patient Records regulations: The Federal rules restrict any use of the information to criminally investigate or prosecute any alcohol or drug abuse patient.[facility] CenterIn the event this information is protected by the Federal Confidentiality of Alcohol and Drug Abuse Patient Records regulations: The Federal rules restrict any use of the information to criminally investigate or prosecute any alcohol or drug abuse patient.[facility] CenterIn the event this information is protected by the Federal Confidentiality of Alcohol and Drug Abuse Patient Records regulations: The Federal rules restrict any use of the information to criminally investigate or prosecute any alcohol or drug abuse patient.[facility] CenterIn the event this information is protected by the Federal Confidentiality of Alcohol and Drug Abuse Patient Records regulations: The Federal rules restrict any use of the information to criminally investigate or prosecute any alcohol or drug abuse patient.[facility] CenterIn the event this information is protected by the Federal Confidentiality of Alcohol and Drug Abuse Patient Records regulations: The Federal rules restrict any use of the information to criminally investigate or prosecute any alcohol or drug abuse patient.[facility] CenterIn the event this information is protected by the Federal Confidentiality of Alcohol and Drug Abuse Patient Records regulations: The Federal rules restrict any use of the information to criminally investigate or prosecute any alcohol or drug abuse patient.[facility] CenterIn the event this information is protected by the Federal Confidentiality of Alcohol and Drug Abuse Patient Records regulations: The Federal rules restrict any use of the information to criminally investigate or prosecute any alcohol or drug abuse patient.[facility] CenterIn the event this information is protected by the Federal Confidentiality of Alcohol and Drug Abuse Patient Records regulations: The Federal rules restrict any use of the information to criminally investigate or prosecute any alcohol or drug abuse patient.[facility] CenterIn the event this information is protected by the Federal Confidentiality of Alcohol and Drug Abuse Patient Records regulations: The Federal rules restrict any use of the information to criminally investigate or prosecute any alcohol or drug abuse patient.[facility] CenterIn the event this information is protected by the Federal Confidentiality of Alcohol and Drug Abuse Patient Records regulations: The Federal rules restrict any use of the information to criminally investigate or prosecute any alcohol or drug abuse patient.[facility] CenterIn the event this information is protected by the Federal Confidentiality of Alcohol and Drug Abuse Patient Records regulations: The Federal rules restrict any use of the information to criminally investigate or prosecute any alcohol or drug abuse patient.[facility] CenterIn the event this information is protected by the Federal Confidentiality of Alcohol and Drug Abuse Patient Records regulations: The Federal rules restrict any use of the information to criminally investigate or prosecute any alcohol or drug abuse patient.[facility] CenterIn the event this information is protected by the Federal Confidentiality of Alcohol and Drug Abuse Patient Records regulations: The Federal rules restrict any use of the information to criminally investigate or prosecute any alcohol or drug abuse patient.[facility] CenterIn the event this information is protected by the Federal Confidentiality of Alcohol and Drug Abuse Patient Records regulations: The Federal rules restrict any use of the information to criminally investigate or prosecute any alcohol or drug abuse patient.[facility] CenterIn the event this information is protected by the Federal Confidentiality of Alcohol and Drug Abuse Patient Records regulations: The Federal rules restrict any use of the information to criminally investigate or prosecute any alcohol or drug abuse patient.[facility] CenterIn the event this information is protected by the Federal Confidentiality of Alcohol and Drug Abuse Patient Records regulations: The Federal rules restrict any use of the information to criminally investigate or prosecute any alcohol or drug abuse patient.[facility] CenterIn the event this information is protected by the Federal Confidentiality of Alcohol and Drug Abuse Patient Records regulations: The Federal rules restrict any use of the information to criminally investigate or prosecute any alcohol or drug abuse patient.[facility] CenterIn the event this information is protected by the Federal Confidentiality of Alcohol and Drug Abuse Patient Records regulations: The Federal rules restrict any use of the information to criminally investigate or prosecute any alcohol or drug abuse patient.[facility] CenterIn the event this information is protected by the Federal Confidentiality of Alcohol and Drug Abuse Patient Records regulations: The Federal rules restrict any use of the information to criminally investigate or prosecute any alcohol or drug abuse patient.[facility] CenterIn the event this information is protected by the Federal Confidentiality of Alcohol and Drug Abuse Patient Records regulations: The Federal rules restrict any use of the information to criminally investigate or prosecute any alcohol or drug abuse patient.[facility] CenterIn the event this information is protected by the Federal Confidentiality of Alcohol and Drug Abuse Patient Records regulations: The Federal rules restrict any use of the information to criminally investigate or prosecute any alcohol or drug abuse patient.[facility] CenterIn the event this information is protected by the Federal Confidentiality of Alcohol and Drug Abuse Patient Records regulations: The Federal rules restrict any use of the information to criminally investigate or prosecute any alcohol or drug abuse patient.[facility] CenterIn the event this information is protected by the Federal Confidentiality of Alcohol and Drug Abuse Patient Records regulations: The Federal rules restrict any use of the information to criminally investigate or prosecute any alcohol or drug abuse patient.[facility] CenterIn the event this information is protected by the Federal Confidentiality of Alcohol and Drug Abuse Patient Records regulations: The Federal rules restrict any use of the information to criminally investigate or prosecute any alcohol or drug abuse patient.[facility] CenterIn the event this information is protected by the Federal Confidentiality of Alcohol and Drug Abuse Patient Records regulations: The Federal rules restrict any use of the information to criminally investigate or prosecute any alcohol or drug abuse patient.[facility] CenterIn the event this information is protected by the Federal Confidentiality of Alcohol and Drug Abuse Patient Records regulations: The Federal rules restrict any use of the information to criminally investigate or prosecute any alcohol or drug abuse patient.[facility] CenterIn the event this information is protected by the Federal Confidentiality of Alcohol and Drug Abuse Patient Records regulations: The Federal rules restrict any use of the information to criminally investigate or prosecute any alcohol or drug abuse patient.[facility] CenterIn the event this information is protected by the Federal Confidentiality of Alcohol and Drug Abuse Patient Records regulations: The Federal rules restrict any use of the information to criminally investigate or prosecute any alcohol or drug abuse patient.[facility] CenterIn the event this information is protected by the Federal Confidentiality of Alcohol and Drug Abuse Patient Records regulations: The Federal rules restrict any use of the information to criminally investigate or prosecute any alcohol or drug abuse patient.[facility] CenterIn the event this information is protected by the Federal Confidentiality of Alcohol and Drug Abuse Patient Records regulations: The Federal rules restrict any use of the information to criminally investigate or prosecute any alcohol or drug abuse patient.[facility] CenterIn the event this information is protected by the Federal Confidentiality of Alcohol and Drug Abuse Patient Records regulations: The Federal rules restrict any use of the information to criminally investigate or prosecute any alcohol or drug abuse patient.[facility] CenterIn the event this information is protected by the Federal Confidentiality of Alcohol and Drug Abuse Patient Records regulations: The Federal rules restrict any use of the information to criminally investigate or prosecute any alcohol or drug abuse patient.[facility] CenterIn the event this information is protected by the Federal Confidentiality of Alcohol and Drug Abuse Patient Records regulations: The Federal rules restrict any use of the information to criminally investigate or prosecute any alcohol or drug abuse patient.[facility] CenterIn the event this information is protected by the Federal Confidentiality of Alcohol and Drug Abuse Patient Records regulations: The Federal rules restrict any use of the information to criminally investigate or prosecute any alcohol or drug abuse patient.[facility] CenterIn the event this information is protected by the Federal Confidentiality of Alcohol and Drug Abuse Patient Records regulations: The Federal rules restrict any use of the information to criminally investigate or prosecute any alcohol or drug abuse patient.[facility] CenterIn the event this information is protected by the Federal Confidentiality of Alcohol and Drug Abuse Patient Records regulations: The Federal rules restrict any use of the information to criminally investigate or prosecute any alcohol or drug abuse patient.[facility] CenterIn the event this information is protected by the Federal Confidentiality of Alcohol and Drug Abuse Patient Records regulations: The Federal rules restrict any use of the information to criminally investigate or prosecute any alcohol or drug abuse patient.[facility] CenterIn the event this information is protected by the Federal Confidentiality of Alcohol and Drug Abuse Patient Records regulations: The Federal rules restrict any use of the information to criminally investigate or prosecute any alcohol or drug abuse patient.[facility] CenterIn the event this information is protected by the Federal Confidentiality of Alcohol and Drug Abuse Patient Records regulations: The Federal rules restrict any use of the information to criminally investigate or prosecute any alcohol or drug abuse patient.[facility] CenterIn the event this information is protected by the Federal Confidentiality of Alcohol and Drug Abuse Patient Records regulations: The Federal rules restrict any use of the information to criminally investigate or prosecute any alcohol or drug abuse patient.[facility] CenterIn the event this information is protected by the Federal Confidentiality of Alcohol and Drug Abuse Patient Records regulations: The Federal rules restrict any use of the information to criminally investigate or prosecute any alcohol or drug abuse patient.[facility] CenterIn the event this information is protected by the Federal Confidentiality of Alcohol and Drug Abuse Patient Records regulations: The Federal rules restrict any use of the information to criminally investigate or prosecute any alcohol or drug abuse patient.[facility] CenterIn the event this information is protected by the Federal Confidentiality of Alcohol and Drug Abuse Patient Records regulations: The Federal rules restrict any use of the information to criminally investigate or prosecute any alcohol or drug abuse patient.[facility] CenterIn the event this information is protected by the Federal Confidentiality of Alcohol and Drug Abuse Patient Records regulations: The Federal rules restrict any use of the information to criminally investigate or prosecute any alcohol or drug abuse patient.[facility] CenterIn the event this information is protected by the Federal Confidentiality of Alcohol and Drug Abuse Patient Records regulations: The Federal rules restrict any use of the information to criminally investigate or prosecute any alcohol or drug abuse patient.[facility] CenterIn the event this information is protected by the Federal Confidentiality of Alcohol and Drug Abuse Patient Records regulations: The Federal rules restrict any use of the information to criminally investigate or prosecute any alcohol or drug abuse patient.[facility] CenterIn the event this information is protected by the Federal Confidentiality of Alcohol and Drug Abuse Patient Records regulations: The Federal rules restrict any use of the information to criminally investigate or prosecute any alcohol or drug abuse patient.[facility] CenterIn the event this information is protected by the Federal Confidentiality of Alcohol and Drug Abuse Patient Records regulations: The Federal rules restrict any use of the information to criminally investigate or prosecute any alcohol or drug abuse patient.[facility] Reason for Visit (unrecogniz ed section and content) Reason Comments Infusion Specialty Diagnoses / Procedures Referred By Contac t Referred To Contact Diagnoses Rheumatoid arthritis involving multiple sites, unspecified whether rheumatoid factor present (HCC) Rheumatoid arthritis involving multiple sites with positive rheumatoid factor (HCC) Procedures ABATACEPT INJECTION Jennifer Arias MD [address] [place] [address] [facility] [address] [place] [address] Referral ID Status Reason Start Date Expiration Date V isits Requested Visits Authorized [id number] Authorized 04/11/2023 09/06/2023 12 6 Specialty Diagnoses / Procedures Referred By Contac t Referred To Contact HEMONC INFUSION Diagnoses Other specified rheumatoid arthritis, multiple sites Procedures INJECTION, ZOLEDRONIC ACID, 1 MG Reclast Jennifer Arais MD [address] [place] [address] [facility] [address] [place] [address] Referral ID Status Reason Start Date Expiration Date V isits Requested Visits Authorized [id number] Authorized 01/18/2021 01/03/2024 1 14 Reason Comments Orders Specialty Diagnoses / Procedures Referred By Contac t Referred To Contact HEMONC INFUSION Diagnoses Other specified rheumatoid arthritis, multiple sites Procedures Jennifer Valderrama MD [address] [place] [address] [facility] [address] [place] [address] Referral ID Status Reason Start Date Expiration Date Visits Requested Visits Authorized [id number] Authorized Patient Cleared INN/SMCP Payor Auth Obtained 08/17/2021 08/16/2022 99 99 Reason Onset Date Comments Refill Request 11/19/2021 Reason Onset Date Comments Vomiting 04/19/2021 Specialty Diagnoses / Procedures Referred By Contac t Referred To Contact HEMONC INFUSION Diagnoses Other specified rheumatoid arthritis, multiple sites Procedures Jennifer Valderrama MD [address] [place] [address] [facility] [address] [place] [address] Referral ID Status Reason Start Date Expiration Date Visits Requested Visits Authorized [id number] Pending Review Patient Cleared INN/SMCP Payor Auth Obtained 08/17/2021 08/16/2022 99 99 Referral ID Status Reason Start Date Expiration Date Visits Requested Visits Authorized [id number] Authorized Patient Cleared INN/SMCP Payor Auth Obtained 08/17/2021 08/16/2022 12 99 Reason Comments APPROVED Reclast APPROVED [id number] 01.25.2022 - 01.25.2023 per [facility] medicare Portal Reason Onset Date Comments Refill Request 01/08/2022 Reason Comments Refill Request Reason Onset Date Comments Refill Request 01/18/2022 Reason Comments Rheumatoid Arthritis Osteoporosis Specialty Diagnoses / Procedures Referred By Contac t Referred To Contact Rheumatology / RHEUMATOLOGY Diagnoses RA/Junie sarah January Procedures OFFICE/OUTPATIENT ESTABLISHED MOD MDM 30-39 MIN VIDEO SPEC EST Jennifer Arias MD [address] [place] [address] Sarah Pearson PA-C [address] [place] [address] Referral ID Status Reason Start Date Expiration Date Visits Re quested Visits Authorized [id number] Closed 01/30/2022 07/28/2022 1 1 Reason Comments Injections [place] Reason Comments Follow Up Reason Comments Future Appointment [place] Reason Comments Appointment Reason Comments Future Appointment Referral ID Status Reason Start Date Expiration Date Visits Requested Visits Authorized [id number] Pending Review Patient Cleared INN/SMCP Payor Auth [...] fracture Reason Comments APPROVED Orencia APPROVED [id number] 09.06.22 - 09.06.23 [facility] Medicare Portal Reason Onset Date Comments Refill Request 10/31/2022 Specialty Diagnoses / Procedures Referred By Contac t Referred To Contact HEMON INFUSION Diagnoses Other specified rheumatoid arthritis, multiple sites Procedures ABATACEPT INJECTION [place] Jennifer Gomez MD [address] [facility] [address] [place] [address] [facility] [address] [place] [address] Referral ID Status Reason Start Date Expiration Date Visits Requested Visits Authorized [id number] Authorized Patient Cleared INN/SMCP Payor Auth Obtained Financial Clearance Not Required 08/17/2021 09/06/2023 12 99 Reason Onset Date Comments Refill Request 12/24/2022 Reason Comments Patient Question Reason Comments PRECERT NOT REQUIRED Zoledronic Acid 5mg PRECERT NOT REQUIRED [id number] 01.02.23 - 01.03.24 for 1 visit [facility] Dual/Portal Reason Comments Osteoporosis Reason Comments Radio Gen RMP Reason Comments Medication Preauthorization Orencia- Bat h Pending [id number] [facility]/Portal Specialty Diagnoses / Procedures Referred By Contac t Referred To Contact Diagnoses Rheumatoid arthritis involving multiple sites, unspecified whether rheumatoid factor present (HCC) Rheumatoid arthritis involving multiple sites with positive rheumatoid factor (HCC) Procedures ABATACEPT INJECTION ABATACEPT INJECTION Jennifer Arias MD [address] [facility] [address] [place] [address] [facility] [id number] [place] [address] Referral ID Status Reason Start Date Expiration Date V isits Requested Visits Authorized [id number] Authorized 04/11/2023 09/16/2024 12 17 Referral ID Status Reason Start Date Expiration Date Visits Re quested Visits Authorized [id number] Closed 04/11/2023 09/16/2024 12 17 Reason Comments Joint Pain Osteoporosis BMD on 07/10/2022 Specialty Diagnoses / Procedures Referred By Contac t Referred To Contact Diagnoses Rheumatoid arthritis involving multiple sites with positive rheumatoid factor (HCC) Procedures ABATACEPT INJECTION Tracy Velez PA-C [address] [place] [address] [facility] [address] [place] [address] Referral ID Status Reason Start Date Expiration Date V isits Requested Visits Authorized [id number] Authorized 11/11/2023 09/16/2024 1 13 Specialty Diagnoses / Procedures Referred By Contac t Referred To Contact Radiology / [facility] Diagnoses 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, U09.9] Procedures XR CHEST Selene Pierre MD [address] [place] [address] [facility] [address] [place] [address] Referral ID Status Reason Start Date Expiration Date Visits Re quested Visits Authorized [id number] Closed 05/01/2021 07/28/2021 1 1 Reason Comments Results Reason Comments New Patient Specialty Diagnoses / Procedures Referred By Contac t Referred To Contact Hematology Diagnoses Iron deficiency anemia, unspecified iron deficiency anemia type Procedures CONSULT TO HEMATOLOGY OFFICE/OUTPATIENT NEW HIGH MDM 60 MINUTES Sarah Pearson PA-C [address] [place] [address] Referral ID Status Reason Start Date Expiration Date V isits Requested Visits Authorized [id number] Closed PCP Requested Referral 05/29/2024 08/27/2024 1 1 Reason Comments Non-Chemotherapy Treatment Specialty Diagnoses / Procedures Referred By Contac t Referred To Contact Diagnoses Rheumatoid arthritis involving multiple sites with positive rheumatoid factor (HCC) Procedures ABATACEPT INJECTION Tracy Velez PA-C [address] [place] [address] [facility] [address] [place] [address] Referral ID Status Reason Start Date Expiration Date Visits Requested Visits Authorized [id number] Authorized Patient Cleared - Admin/Chairm an/Director advise to proceed or did not respond 11/11/2023 06/16/2025 19 19 Specialty Diagnoses / Procedures Referred By Contac t Referred To Contact Diagnoses Iron 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 blood loss Iron malabsorption Procedures IRON SUCROSE INJECTION PER 1 MG Josh Bennett, DO [address] [place] [address] [facility] [address] [place] [address] Referral ID Status Reason Start Date Expiration Date V isits Requested Visits Authorized [id number] Authorized 06/15/2024 06/18/2025 10 10 Specialty Diagnoses / Procedures Referred By Contac t Referred To Contact Diagnoses Iron 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 blood loss Iron malabsorption Procedures IRON SUCROSE INJECTION PER 1 MG Josh Bennett, DO [address] [place] [address] [facility] [address] [place] [address] Reason Comments Rectal Problem Hemorrhoids and yeas [...] 60 MINUTES Josh Bennett DO [address] [facility] [place] [address] Phone: tel: fax: Referral ID Status Reason Start Date Expiration Date V isits Requested Visits Authorized [id number] Closed PCP Requested Referral 09/15/2024 09/15/2025 [address] Specialty Diagnoses / Procedures Referred By Contac t Referred To Contact CT IMAGING Diagnoses Anal cancer (HCC) Procedures CT CHEST W IVCON DIAGNOSTIC COMPUTED TOMOGRAPHY THORAX W/CONTRAST Josh Bennett DO [address] [facility] [place] [address] Phone: tel: fax: [place] [address] Referral ID Status Reason Start Date Expiration Date V isits Requested Visits Authorized [id number] Closed Auto-Generate d Referral 09/16/2024 10/16/2025 1 1 Reason Comments UTI Low back pain, frequ ency, lower abd pressure, nausea x1 week Reason Comments First Time Treatment Education 5FU/Mitom ycin Reason Comments appointment change Reason Comments Rheumatoid Arthritis Reason Comments Well Woman Specialty Diagnoses / Procedures Referred By Contac t Referred To Contact Gynecology Diagnoses Anal cancer (HCC) Procedures CONSULT TO GYNECOLOGY OFFICE/OUTPATIENT [facility] 60 MINUTES Josh Bennett, DO [address] [place] [address] Phone: tel: fax: Referral ID Status Reason Start Date Expiration Date V isits Requested Visits Authorized [id number] Closed PCP Requested Referral Auto-Generated Referral 09/15/2024 09/15/2025 1 1 Reason Onset Date Comments Simulation Request Form 09/28/2024 Reason Comments Chemotherapy Treatment Specialty Diagnoses / Procedures Referred By Contac t Referred To Contact Diagnoses Anal cancer (HCC) Procedures FLUOROURACIL INJECTION MITOMYCIN 5 MG INJ Josh Bennett, DO [address] [place] [address] Phone: tel: fax: Josh Bennett, DO [address] [facility] [place] [address] Phone: tel: fax: Referral ID Status Reason Start Date Expiration Date V isits Requested Visits Authorized [id number] Authorized 09/21/2024 09/21/2025 99 99 Reason Comments Radiotherapy On-treatment Visit 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 (5FU/Mitomycin) Reason Comments Established Patient 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 Reason Comments CADD Pump [...] ACID, 1 MG Jennifer Arias MD [address] [address] Phone: tel: fax: Jennifer Arias MD [address] [place] [address] Phone: tel: fax: Referral ID Status Reason Start Date Expiration Date V isits Requested Visits Authorized [id number] Authorized 01/05/2025 01/05/2026 1 1 Reason Onset Date Comments Refill Request 01/13/2025 Reason Onset Date Comments Refill Request 02/03/2025 Specialty Diagnoses / Procedures Referred By Contac t Referred To Contact Diagnoses Other osteoporosis without current pathological fracture Rheumatoid arthritis involving multiple sites with positive rheumatoid factor (HCC) Procedures ABATACEPT INJECTION Jennifer Arias MD [address] [address] Phone: tel: fax: Jennifer Arias MD [address] [place] [address] Phone: tel: fax: Referral ID Status Reason Start Date Expiration Date V isits Requested Visits Authorized [id number] Authorized 06/16/2024 01/15/2026 17 17 Reason Comments Established Patient Reason Comments AVS 03/19 Care Teams (unrecognized sec tion and content) Learning And Development Intern Relationship Specialty Start Date End Date Selene Pierre MD [address] [place] [address] PCP - General Internal Medicine 06/03/14 Ismael Kidd (Rn)(Hist), RN Specialty [employer] 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 Teacher Hematology/Oncology 08/30/17 Quin Nolan, DO [address] [place], [place] [address] Hospice Physician Peripheral Vascular 01/26/19 Jennifer Arias MD [address] [place], [place] [address] Physician Internal Medicine 02/11/19 Ronit Rahman, DO [address] [place] [address] Physician Cardiology 02/11/19 Kj Rowe MD [address] [place] [address] Physician Pulmonary and Critical Care Medicine 04/29/19 JosiahRonit abdul, DO [address] [place] [address] Primary Staff Physician Cardiology 01/12/20 Learning And Development Intern Relationship Specialty Start Date End Date Selene Pierre MD [address] [place], [place] [id number] PCP - General Internal Medicine 06/03/14 Ismael Kidd (Rn)(Hist), RN 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 [employer] 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 Teacher Hematology/Oncology 08/30/17 Quin Nolan, DO [address] [place], [place] [address] Hospice Physician Peripheral Vascular 01/26/19 Jennifer Arias MD [address] [place], [place] [address] Physician Internal Medicine 02/11/19 Ronit Rahman, DO [address] [place] [address] Physician Cardiology 02/11/19 Kj Rowe MD [address] [facility] [place] [place] [address] Physician Pulmonary and Critical Care Medicine 04/29/19 Ronit Rahman, DO [address] [place] [address] Primary Staff Physician Cardiology 01/12/20 Learning And Development Intern Relationship Specialty Start Date End Date Selene Pierre MD [address] [place] [address] PCP - General Internal Medicine 06/03/14 Ismael Kidd (Rn)(Hist), RN Specialty [employer] 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 Teacher Hematology/Oncology 08/30/17 Quin Nolan, DO [address] [place], [place] [address] Hospice Physician Peripheral Vascular 01/26/19 Jennifer Arias MD [address] [address] Physician Internal Medicine 02/11/19 Ronit Rahman, DO [address] [place] [address] Physician Cardiology 02/11/19 Kj Rowe MD [address] [place] [address] Physician Pulmonary and Critical Care Medicine 04/29/19 Ronit Rahman DO [address] [place] [address] Primary Staff Physician Cardiology 01/12/20 Learning And Development Intern Relationship Specialty Start Date End Date Selene Pierre MD [address] [place] [address] PCP - General Internal Medicine 06/03/14 Ismael Kidd (Rn)(Hist), RN Specialty [employer] 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 Teacher Hematology/Oncology 08/30/17 Quin Nolan, DO [address] [place], [place] [address] Hospice Physician Peripheral Vascular 01/26/19 Jennifer Arias MD [address] [place], [place] [address] Physician Internal Medicine 02/11/19 Ronit Rahman DO [address] [place] [address] Physician Cardiology 02/11/19 Kj Rowe MD [address] [place], [place] [address] Physician Pulmonary and Critical Care Medicine 04/29/19 Ronit Rahman DO [address] [place] [address] Primary Staff Physician Cardiology 01/12/20 Learning And Development Intern Relationship Specialty Start Date End Date Selene Pierre MD [address] [place], [place] [address] PCP - General Internal Medicine 06/03/14 Ismael Kidd (Rn)(Hist), RN Specialty [employer] 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 Teacher Hematology/Oncology 08/30/17 Quin Nolan, DO [address] [place], [place] [address] Hospice Physician Peripheral Vascular 01/26/19 Jennifer Arias MD [address] [facility] [address] [place], [place] [address] Physician Internal Medicine 02/11/19 Ronit Rahman DO [address] [place] [address] Physician Cardiology 02/11/19 Kj Rowe MD [address] [place], [place] [address] Physician Pulmonary and Critical Care Medicine 04/29/19 Ronit Rahman DO [address] [place] [address] Primary Staff Physician Cardiology 01/12/20 Learning And Development Intern Relationship Specialty Start Date End Date Selene Pierre MD [address] [place], [place] [address] PCP - General Internal Medicine 06/03/14 Ismael Kidd (Rn)(Hist), RN Specialty [employer] 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 Teacher Hematology/Oncology 08/30/17 Quin Nolan, DO [address] [place] [address] Hospice Physician Peripheral Vascular 01/26/19 Jennifer Arias MD [address] [place], [place] [address] Physician Internal Medicine 02/11/19 Ronit Rahman, DO [address] [place] [address] Physician Cardiology 02/11/19 Kj Rowe MD [address] [place], [place] [address] Physician Pulmonary and Critical Care Medicine 04/29/19 Ronit Rahman, DO [address] [place] [address] Primary Staff Physician Cardiology 01/12/20 Learning And Development Intern Relationship Specialty Start Date End Date Selene Pierre MD [address] [place] [address] PCP - General Internal Medicine 06/03/14 Ismael Kidd (Rn)(Hist), RN Specialty 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 Teacher Hematology/Oncology 08/30/17 Quin Nolan, DO [address] [place], [place] [address] Hospice Physician Peripheral Vascular 01/26/19 Jennifer Arias MD [address] [place], [place] [address] Physician Internal Medicine 02/11/19 Ronit Rahman DO [address] [place] [address] Physician Cardiology 02/11/19 Kj Rowe MD [address] [place], [place] [address] Physician Pulmonary and Critical Care Medicine 04/29/19 Ronit Rahman DO [address] [place] [address] Primary Staff Physician Cardiology 01/12/20 Learning And Development Intern Relationship Specialty Start Date End Date Selene Pierre MD [address] [place], [place] 8550[address] PCP - General Internal Medicine 06/03/14 Ismael Kidd (Rn)(Hist), RN Specialty [employer] 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 Teacher Hematology/Oncology 08/30/17 Quin Nolan, DO [address] [place], [place] [address] Hospice Physician Peripheral Vascular 01/26/19 Jennifer Arias MD [address] [address] Physician Internal Medicine 02/11/19 Ronit Rahman DO [address] [place] [address] Physician Cardiology 02/11/19 Kj Rowe MD [address] [place] [place], [place] 404881 Physician Pulmonary and Critical Care Medicine 04/29/19 Ronit Rahman DO [address] [place] [address] Primary Staff Physician Cardiology 01/12/20 Learning And Development Intern Relationship Specialty Start Date End Date Selene Pierre MD [address] [place], [place] 780518 [phone] PCP - General Internal Medicine 06/03/14 Ismael Kidd (Rn)(Hist), RN Specialty [employer] 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 Teacher Hematology/Oncology 08/30/17 Quin Nolan, DO [address] [place], [place] [address] Hospice Physician Peripheral Vascular 01/26/19 Jennifer Arias MD [address] [place], [place] [address] Physician Internal Medicine 02/11/19 Ronit Rahman, DO [address] [place] [address] Physician Cardiology 02/11/19 Kj Rowe MD [address] [place] [address] Physician Pulmonary and Critical Care Medicine 04/29/19 Ronit Rahman, DO [address] [place] [address] Primary Staff Physician Cardiology 01/12/20 Learning And Development Intern Relationship Specialty Start Date End Date Selene Pierre MD [address] [place], [place] 2860[address] PCP - General Internal Medicine 06/03/14 Ismael Kidd (Rn)(Hist), RN Specialty [employer] 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 Teacher Hematology/Oncology 08/30/17 Quin Nolan, DO [address] [place] [address] Hospice Physician Peripheral Vascular 01/26/19 Jennifer Arias MD [address] [place], [place] [address] Physician Internal Medicine 02/11/19 Ronit Rahman, DO [address] [place] [address] Physician Cardiology 02/11/19 Kj Rowe MD [address] [place] [address] Physician Pulmonary and Critical Care Medicine 04/29/19 Ronit Rahman, DO [address] [place] [address] Primary Staff Physician Cardiology 01/12/20 Learning And Development Intern Relationship Specialty Start Date End Date Selene Pierre MD [address] [place] [address] PCP - General Internal Medicine 06/03/14 Ismael Kidd (Rn)(Hist), RN Specialty [employer] 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 Teacher Hematology/Oncology 08/30/17 Quin Nolan, DO [address] [place] [address] Hospice Physician Peripheral Vascular 01/26/19 Jennifer Arias MD [address] [address] Physician Internal Medicine 02/11/19 Ronit Rahman, DO [address] [place] [address] Physician Cardiology 02/11/19 Kj Rowe MD [address] [place] [address] Physician Pulmonary and Critical Care Medicine 04/29/19 Ronit Rahman DO [address] [place] [address] Primary Staff Physician Cardiology 01/12/20 Learning And Development Intern Relationship Specialty Start Date End Date Selene Pierre MD [address] [place] [address] PCP - General Internal Medicine 06/03/14 Ismael Kidd (Rn)(Hist), RN Specialty [employer] 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 Teacher Hematology/Oncology 08/30/17 Quin Nolan, DO [address] [place] [address] Hospice Physician Peripheral Vascular 01/26/19 Jennifer Arias MD [address] [place], [place] [address] Physician Internal Medicine 02/11/19 Ronit Rahman, DO [address] [place] [address] Physician Cardiology 02/11/19 Kj Rowe MD [address] [facility] [place] [place] [address] Physician Pulmonary and Critical Care Medicine 04/29/19 Ronit Rahman DO [address] [place] [address] Primary Staff Physician Cardiology 01/12/20 Learning And Development Intern Relationship Specialty Start Date End Date Selene Pierre MD [address] [place], [place] [address] PCP - General Internal Medicine 06/03/14 Ismael Kidd (Rn)(Hist), RN Specialty [employer] 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 Teacher Hematology/Oncology 08/30/17 Quin Nolan, DO [address] [place] [address] Hospice Physician Peripheral Vascular 01/26/19 Jennifer Arias MD [address] [facility] [address] [place], [place] [address] Physician Internal Medicine 02/11/19 Ronit Rahman DO [address] [place] [address] Physician Cardiology 02/11/19 Kj Rowe MD [address] [facility] [place] [place] [address] Physician Pulmonary and Critical Care Medicine 04/29/19 Ronit Rahman DO [address] [place] [address] Primary Staff Physician Cardiology 01/12/20 Learning And Development Intern Relationship Specialty Start Date End Date Selene Pierre MD [address] [place] [address] PCP - General Internal Medicine 06/03/14 Ismael Kidd (Rn)(Hist), RN Specialty High 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 Teacher Hematology/Oncology 08/30/17 Quin Nolan, DO [address] [place] [address] Hospice Physician Peripheral Vascular 01/26/19 Jennifer Arias MD [address] [place], [place] [address] Physician Internal Medicine 02/11/19 Ronit Rahman, DO [address] [place] [address] Physician Cardiology 02/11/19 Kj Rowe MD [address] [place] [address] Physician Pulmonary and Critical Care Medicine 04/29/19 Ronit Rahman, DO [address] [place] [address] Primary Staff Physician Cardiology 01/12/20 Learning And Development Intern Relationship Specialty Start Date End Date Selene Pierre MD [address] [place] [address] PCP - General Internal Medicine 06/03/14 Ismael Kidd (Rn)(Hist), RN Specialty [employer] 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 Teacher Hematology/Oncology 08/30/17 Quin Nolan, DO [address] [place], [place] [address] Hospice Physician Peripheral Vascular 01/26/19 Jennifer Arias MD [address] [place], [place] [address] Physician Internal Medicine 02/11/19 Ronit Rahman DO [address] [place] [address] Physician Cardiology 02/11/19 Kj Rowe MD [address] [facility] [place] [place] [address] Physician Pulmonary and Critical Care Medicine 04/29/19 Ronit Rahman DO [address] [place] [address] Primary Staff Physician Cardiology 01/12/20 Learning And Development Intern Relationship Specialty Start Date End Date Selene Pierre MD [address] [place], [place] [address]25[address] PCP - General Internal Medicine 06/03/14 Ismael Kidd (Rn)(Hist), RN Specialty High 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 Teacher Hematology/Oncology 08/30/17 Quin Nolan DO [address] [place], [place] [address] Hospice Physician Peripheral Vascular 01/26/19 Jennifer Arias MD [address] [address] Physician Internal Medicine 02/11/19 Ronit Rahman DO [address] [place] [address] Physician Cardiology 02/11/19 Kj Rowe MD [address] [facility] [place] [place] [address] Physician Pulmonary and Critical Care Medicine 04/29/19 Ronit Rahman DO [address] [place] [address] Primary Staff Physician Cardiology 01/12/20 Learning And Development Intern Relationship Specialty Start Date End Date Selene Pierre MD [address] [place], [place] 117402 [phone] PCP - General Internal Medicine 06/03/14 Ismael Kidd (Rn)(Hist), RN Specialty [employer] 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 Teacher Hematology/Oncology 08/30/17 Quin Nolan, DO [address] [place], [place] [address] Hospice Physician Peripheral Vascular 01/26/19 Jennifer Arias MD [address] [place], [place] [address] Physician Internal Medicine 02/11/19 Ronit Rahman, DO [address] [place] [address] Physician Cardiology 02/11/19 Kj Rowe MD [address] [place] [address] Physician Pulmonary and Critical Care Medicine 04/29/19 Ronit Rahman, DO [address] [place] [address] Primary Staff Physician Cardiology 01/12/20 Learning And Development Intern Relationship Specialty Start Date End Date Selene Pierre MD [address] [place], [place] [address] PCP - General Internal Medicine 06/03/14 Ismael Kidd (Rn)(Hist), RN Specialty High 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 Teacher Hematology/Oncology 08/30/17 Quin Nolan, DO [address] [place] [address] Hospice Physician Peripheral Vascular 01/26/19 Jennifer Arias MD [address] [place], [place] [address] Physician Internal Medicine 02/11/19 Ronit Rahman, DO [address] [place] [address] Physician Cardiology 02/11/19 Kj Rowe MD [address] [place] [address] Physician Pulmonary and Critical Care Medicine 04/29/19 Ronit Rahman, DO [address] [place] [address] Primary Staff Physician Cardiology 01/12/20 Learning And Development Intern Relationship Specialty Start Date End Date Selene Pierre MD [address] [place] [address] PCP - General Internal Medicine 06/03/14 Ismael Kidd (Rn)(Hist), RN Specialty [employer] 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 Teacher Hematology/Oncology 08/30/17 Quin Nolan, DO [address] [place] [address] Hospice Physician Peripheral Vascular 01/26/19 Jennifer Arias MD [address] [address] Physician Internal Medicine 02/11/19 Ronit Rahman, DO [address] [place] [address] Physician Cardiology 02/11/19 Kj Rowe MD [address] [place] [address] Physician Pulmonary and Critical Care Medicine 04/29/19 Ronit Rahman DO [address] [place] [address] Primary Staff Physician Cardiology 01/12/20 Learning And Development Intern Relationship Specialty Start Date End Date Selene Pierre MD [address] [place] [address] PCP - General Internal Medicine 06/03/14 Ismael Kidd (Rn)(Hist), RN Specialty [employer] 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 Teacher Hematology/Oncology 08/30/17 Quin Nolan, DO [address] [place], [place] [address]41 Hospice Physician Peripheral Vascular 01/26/19 Jennifer Arias MD [address] [place], [place] [address] Physician Internal Medicine 02/11/19 oRnit Rahman DO [address] [place] [address] Physician Cardiology 02/11/19 Kj Rowe MD [address] [place], [place] [address]871 Physician Pulmonary and Critical Care Medicine 04/29/19 Ronit Rahman DO [address] [place] [address] Primary Staff Physician Cardiology 01/12/20 Learning And Development Intern Relationship Specialty Start Date End Date Selene Pierre MD [address] [place], [place] 138931 PCP - General Internal Medicine 06/03/14 Ismael Kidd (Rn)(Hist), RN Specialty 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 Teacher Hematology/Oncology 08/30/17 Quin Nolan, DO [address], [place] 57[address]61 Hospice Physician Peripheral Vascular 01/26/19 Jennifer Arias MD [address] [place], [place] [address]673 Physician Internal Medicine 02/11/19 Ronit Rahman, DO [address] [place] [address] Physician Cardiology 02/11/19 Kj Rowe MD [address] [place], [place] 67[address]91 Physician Pulmonary and Critical Care Medicine 04/29/19 Ronit Rahman DO [address] [place] [address] Primary Staff Physician Cardiology 01/12/20 Learning And Development Intern Relationship Specialty Start Date End Date Selene Pierre MD [address] [place] [address] PCP - General Internal Medicine 06/03/14 Ismael Kidd (Rn)(Hist), RN Specialty 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 Teacher Hematology/Oncology 08/30/17 Quin Nolan, DO [address] [place] [address] Hospice Physician Peripheral Vascular 01/26/19 Jennifer Arias MD [address] [place], [place] 3[address]83 Physician Internal Medicine 02/11/19 Ronit Rahman, DO [address] [place] [address] Physician Cardiology 02/11/19 Kj Rowe MD [address] [place], [place] 755731 Physician Pulmonary and Critical Care Medicine 04/29/19 Ronit Rahman, DO [address] [place] [address] Primary Staff Physician Cardiology 01/12/20 Learning And Development Intern Relationship Specialty Start Date End Date Selene Pierre MD [address] [place] [address] PCP - General Internal Medicine 06/03/14 Ismael Kidd (Rn)(Hist), RN Specialty 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 Teacher Hematology/Oncology 08/30/17 Quin Nolan, DO [address] [place], [place] 77[address]41 Hospice Physician Peripheral Vascular 01/26/19 Jennifer Arias MD [address] [place], [place] [address] Physician Internal Medicine 02/11/19 Ronit Rahman DO [address] [place] [address] Physician Cardiology 02/11/19 Kj Rowe MD [address] [place] [address] Physician Pulmonary and Critical Care Medicine 04/29/19 Ronit Rahman DO [address] [place] [address] Primary Staff Physician Cardiology 01/12/20 Learning And Development Intern Relationship Specialty Start Date End Date Selene Pierre MD [address] [place] [address] PCP - General Internal Medicine 06/03/14 Ismael Kidd (Rn)(Hist), RN Specialty [employer] 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 Teacher Hematology/Oncology 08/30/17 Quin Nolan, DO [address] [place] [address] Hospice Physician Peripheral Vascular 01/26/19 Jennifer Arias MD [address] [address] Physician Internal Medicine 02/11/19 Ronit Rahman DO [address] [place] [address] Physician Cardiology 02/11/19 Kj Rowe MD [address] [facility] [place] [place] [address] Physician Pulmonary and Critical Care Medicine 04/29/19 Ronit Rahman DO [address] [place] [address] Primary Staff Physician Cardiology 01/12/20 Learning And Development Intern Relationship Specialty Start Date End Date Selene Pierre MD [address] [place] [address] PCP - General Internal Medicine 06/03/14 Ismael Kidd (Rn)(Hist), RN Specialty 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 Teacher Hematology/Oncology 08/30/17 Quin Nolan, DO [address] [facility], [place] 971391 Hospice Physician Peripheral Vascular 01/26/19 Jennifer Arias MD [address] [place], [place] [address]53 Physician Internal Medicine 02/11/19 Ronit Rahman, DO [address] [place] [address] Physician Cardiology 02/11/19 Kj Rowe MD [address] [place] [address] Physician Pulmonary and Critical Care Medicine 04/29/19 Ronit Rahman, DO [address] [place] [address] Primary Staff Physician Cardiology 01/12/20 Learning And Development Intern Relationship Specialty Start Date End Date Selene Pierre MD [address] [facility] [place] [address] PCP - General Internal Medicine 06/03/14 Ismael Kidd (Rn)(Hist), RN Specialty 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 Teacher Hematology/Oncology 08/30/17 Quin Nolan, DO [address] [place] [address] Hospice Physician Peripheral Vascular 01/26/19 Jennifer Arias MD [address] [place], [place] 48[address]83 Physician Internal Medicine 02/11/19 Ronit Rahman, DO [address] [place] [address] Physician Cardiology 02/11/19 Kj Rowe MD [address] [place] [address] Physician Pulmonary and Critical Care Medicine 04/29/19 Ronit Rahman, DO [address] [place] [address] Primary Staff Physician Cardiology 01/12/20 Team Status: Active Member Role Status Dates Dr. Selene Pierre MD Family Provider Active Julio Arriaga [employer] PRINTER, [employer] PRINTER-C Primary Care Provider Active Team Status: Inactive [...] Inactive Member Role Status Dates Julio Arriaga [employer] PRINTER, [employer] PRINTER-[employer] Primary Care Provider, Referri ng Provider Active Kenya Clark PA, PA Attending Provider Active Team Status: Inactive Member Role Status Dates GIANNI CERVANTES MD Attending Provider Active Julio Arriaga [employer]BON PRINTER, [employer] PRINTER-C Primary Care Provider Active Learning And Development Intern Relationship Specialty Start Date End Date Selene Pierre MD [address] [place], [place] 347901 PCP - General Internal Medicine 06/03/14 Ismael Kidd (Rn)(Hist), RN Specialty 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 Teacher Hematology/Oncology 08/30/17 Quin Nolan, DO [address] [facility] [place] [place] [address] Hospice Physician Peripheral Vascular 01/26/19 Jennifer Arias MD [address] [address] Physician Internal Medicine 02/11/19 Ronit Rahman, [address] [place] [address] Physician Cardiology 02/11/19 Kj Rowe MD [address] [place], [place] [address]31 Physician Pulmonary and Critical Care Medicine 04/29/19 Ronit Rahman, DO [address] [place], [place] [address]256 Primary Staff Physician Cardiology 01/12/20 Team Status: Inactive Member Role Status Dates Dr. Selene Pierre MD Referring Provider Active Jaci Warren [employer] PRINTER, [employer] PRINTER-C Attending Provider Active Julio Arriaga [employer] PRINTER, [employer] PRINTER-C Primary Care Provider Active Team Status: Inactive Member Role Status Dates Julio Arriaga [employer]BON PRINTER, [employer] PRINTER-C Primary Care Provider Active Jaci Warren CARBON PRINTER, [employer] PRINTER-C Attending Provider, Referalonzo g Provider Active Learning And Development Intern Relationship Specialty Start Date End Date Julio Arriaga, RAILROAD EMERGENCY SERVICES MANAGER.FOLDER TIER [address] [place] [phone] PCP - General Internal Medicine 10/18/22 Ismael Kidd (Rn)(Hist), RN Specialty [employer] 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 Teacher Hematology/Oncology 08/30/17 Quin Nolan, DO [address] [place] [address] Hospice Physician Peripheral Vascular 01/26/19 Jennifer Arias MD [address] [address] Physician Internal Medicine 02/11/19 Ronit Rahman DO [address] [place] [address] Physician Cardiology 02/11/19 Kj Rowe MD [address] [place], [place] [address] Physician Pulmonary and Critical Care Medicine 04/29/19 Ronit Rahman DO [address] [place], [place] [address] Primary Staff Physician Cardiology 01/12/20 Team Status: Active Member Role Status Dates GIANNI CERVANTES MD Referring Provider, Other Provider Active Julio Arriaga CARB[employer] PRINTER, [employer] PRINTER-C Primary Care Provider Active Dr. Isaac Nichols MD Attending Provider Active Team Status: Active Member Role Status Dates GIANNI CERVANTES MD Attending Provider, Referring Prov ider Active Julio Arriaga [employer] PRINTER, [employer] PRINTER-C Primary Care Provider Active Team Status: Inactive Member Role Status Dates GIANNI CERVANTES MD Attending Provider, Referring Prov ider Active Julio Arriaga [employer]BON PRINTER, [employer] PRINTER-C Primary Care Provider Active Learning And Development Intern Relationship Specialty Start Date End Date Julio Arriaga, RAILROAD EMERGENCY SERVICES MANAGER.FOLDER TIER [address] [place] [phone] PCP - General Internal Medicine 10/18/22 Ismael Kidd (Rn)(Hist), RN Specialty 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 Teacher Hematology/Oncology 08/30/17 Quin Nolan, DO [address] [place] [address] Hospice Physician Peripheral Vascular 01/26/19 Jennifer Arias MD [address] [address] Physician Internal Medicine 02/11/19 [facility] [address] [place] [address] Physician Cardiology 02/11/19 Kj Rowe MD [address] [place] [address] Physician Pulmonary and Critical Care Medicine 04/29/19 JosiahRonit abdul [address] [place] [address] Primary Staff Physician Cardiology 01/12/20 Learning And Development Intern Relationship Specialty Start Date End Date Julio Arriaga, RAILROAD EMERGENCY SERVICES MANAGER.FOLDER TIER [address] [place] [phone] PCP - General Internal Medicine 10/18/22 Ismael Kidd (Rn)(Hist), RN Specialty 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 Teacher Hematology/Oncology 08/30/17 Quin Nolan, DO [address] [place], [place] [address]21 Hospice Physician Peripheral Vascular 01/26/19 Jennifer Arias MD [address] [place] [address] Physician Internal Medicine 02/11/19 JosiahRonit abdul, DO [address] [place] [address] Physician Cardiology 02/11/19 Kj Rowe MD [address] [facility] [place] [place] [address] Physician Pulmonary and Critical Care Medicine 04/29/19 Roint Rahman, DO [address] [place], [place] 23927[address] Primary Staff Physician Cardiology 01/12/20 Team Status: Active Member Role Status Dates Julio Arriaga CARBON PRINTER, [employer] PRINTER-C Primary Care Provider, Referri ng Provider Active Dr. Andrez Pitts , Attending Provider, Other Prov ider Active Team Status: Inactive Member Role Status Dates Julio Arriaga CARBON PRINTER, [employer] PRINTER-C Primary Care Provider, Referri ng Provider Active Dr. Andrez Pitts , Attending Provider Active Learning And Development Intern Relationship Specialty Start Date End Date Julio Arriaga, RAILROAD EMERGENCY SERVICES MANAGER.FOLDER TIER [address] [place] [address] PCP - General Internal Medicine 10/18/22 Ismael Kidd (Rn)(Hist), RN Specialty 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 Teacher Hematology/Oncology 08/30/17 Quin Nolan, DO [address] [facility] [place], [place] [address] Hospice Physician Peripheral Vascular 01/26/19 Jennifer Arias MD [address] [facility] [address] [place], [place] 6[address]43 Physician Internal Medicine 02/11/19 Ronit Rahman, DO [address] [place] [address] Physician Cardiology 02/11/19 Kj Rowe MD [address] [place], [place] 408811 Physician Pulmonary and Critical Care Medicine 04/29/19 Ronit Rahman DO [address] [place] [address] Primary Staff Physician Cardiology 01/12/20 Learning And Development Intern Relationship Specialty Start Date End Date Julio Arriaga, RAILROAD EMERGENCY SERVICES MANAGER.FOLDER TIER [address] [place] [phone] PCP - General Internal Medicine 10/18/22 Ismael Kidd (Rn)(Hist), RN Specialty 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 Teacher Hematology/Oncology 08/30/17 Quin Nolan, DO [address] [place], [place] [address]331 Hospice Physician Peripheral Vascular 01/26/19 Jennifer Arias MD [address] [address] Physician Internal Medicine 02/11/19 Ronit Rahman DO [address] [place] [address] Physician Cardiology 02/11/19 Kj Rowe MD [address] [place], [place] 2[address]21 Physician Pulmonary and Critical Care Medicine 04/29/19 Ronit Rahman DO [address] [place] [address] Primary Staff Physician Cardiology 01/12/20 Team Status: Inactive Member Role Status Dates Julio Arriaga CARBON PRINTER, CAR[employer]ON PRINTER-C Primary Care Provider, Referri ng Provider Active Jaci Warren CARBON PRINTER, [employer]ON PRINTER-C Attending Provider Active Team Status: Inactive Member Role Status Dates Julio Arriaga CARBON PRINTER, [employer] PRINTER-C Primary Care Provider, Referri ng Provider Active Pablo BENOIT, PA Attending Provider Active Team Status: Inactive Member Role Status Dates Julio Arriaga CARBON PRINTER, CAR[employer]ON PRINTER-C Primary Care Provider Active Dr. Usama Sarmiento MD Attending Provider Active Team Status: Inactive Member Role Status Dates Julio Arriaga CARBON PRINTER, [employer] PRINTER-C Primary Care Provider Active Pablo BENOIT, PA Attending Provider, Referring Prov ider Active Learning And Development Intern Relationship Specialty Start Date End Date Julio Arriaga, RAILROAD EMERGENCY SERVICES MANAGER.FOLDER TIER [address] [place] [phone] PCP - General Internal Medicine 10/18/22 Ismael Kidd (Rn)(Hist), RN Specialty [employer] 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 Teacher Hematology/Oncology 08/30/17 Quin Nolan, DO [address] [place] [address] Hospice Physician Peripheral Vascular 01/26/19 Jennifer Arias MD [address] [address] Physician Internal Medicine 02/11/19 Ronit Rahman, [address] [place] [address] Physician Cardiology 02/11/19 Kj Rowe MD [address] [place] [address] Physician Pulmonary and Critical Care Medicine 04/29/19 Ronit Rahman, [address] [place] [address] Primary Staff Physician Cardiology 01/12/20 Learning And Development Intern Relationship Specialty Start Date End Date Julio Arriaga, RAILROAD EMERGENCY SERVICES MANAGER.FOLDER TIER [address] [place] [phone] PCP - General Internal Medicine 10/18/22 Ismael Kidd (Rn)(Hist), RN Specialty [employer] 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 Teacher Hematology/Oncology 08/30/17 Quin Nolan, DO [address] [facility] [place] [place] 262951 Hospice Physician Peripheral Vascular 01/26/19 Jennifer Arias MD [address] [place] [address] Physician Internal Medicine 02/11/19 Ronit Rahman, DO [address] [place] [address] Physician Cardiology 02/11/19 Kj Rowe MD [address] [facility] [place], [place] [address] Physician Pulmonary and Critical Care Medicine 04/29/19 Ronit Rahman, DO [address] [place] [address] Primary Staff Physician Cardiology 01/12/20 Learning And Development Intern Relationship Specialty Start Date End Date Julio Arriaga, RAILROAD EMERGENCY SERVICES MANAGER.FOLDER TIER [address] [place] [phone] PCP - General Internal Medicine 10/18/22 Ismael Kidd (Rn)(Hist), RN Specialty High 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 Teacher Hematology/Oncology 08/30/17 Quin Nolan, DO [address] [place] [address] Hospice Physician Peripheral Vascular 01/26/19 Jennifer Arias MD [address] [facility] [address] [place], [place] [address]363 Physician Internal Medicine 02/11/19 Ronit Rahman, DO [address] [place] [address] Physician Cardiology 02/11/19 Kj Rowe MD [address] [place] [address] Physician Pulmonary and Critical Care Medicine 04/29/19 Ronit Rahman, DO [address] [place], [place] [address] Primary Staff Physician Cardiology 01/12/20 Team Status: Inactive Member Role Status Dates Julio Arriaga CARBON PRINTER, CAR[employer]ON PRINTER-C Primary Care Provider, Referri ng Provider Active Dr. Michael Rawls DO Attending Provider Active Team Status: Inactive Member Role Status Dates Julio Arriaga CARBON PRINTER, CAR[employer]ON PRINTER-C Primary Care Provider Active Dr. Michael Rawls DO Attending Provider, Referring Provider Active Team Status: Active Member Role Status Dates Julio Arriaga CARBON PRINTER, CAR[employer]ON PRINTER-C Primary Care Provider Active Dr. Michael Rawls DO Admit Provider, Attending Provider, Other Provider Active Team Status: Active Member Role Status Dates Julio Arriaga CARBON PRINTER, CARBON PRINTER-C Primary Care Provider Active Dr. Michael Rawls DO Admit Provider, Attending Provider, Referring Provider, Other Provider Active Team Status: Inactive Member Role Status Dates Julio Arriaga CARBON PRINTER, [employer]ON PRINTER-C Primary Care Provider Active Dr. Michael Rawls DO Admit Provider, Attending Provider, Referring Provider Active Learning And Development Intern Relationship Specialty Start Date End Date Julio Arriaga, RAILROAD EMERGENCY SERVICES MANAGER.FOLDER TIER [address] [place] [phone] PCP - General Internal Medicine 10/18/22 Ismael Kidd (Rn)(Hist), RN Specialty [employer] 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 Teacher Hematology/Oncology 08/30/17 Quin Nolan, DO [address] [place] [address] Hospice Physician Peripheral Vascular 01/26/19 Jennifer Arias MD [address] [address] Physician Internal Medicine 02/11/19 Ronit Rahman DO [address] [place], [place] [address] Physician Cardiology 02/11/19 Kj Rowe MD [address] [facility] [place] [place] [address] Physician Pulmonary and Critical Care Medicine 04/29/19 Ronit Rahman DO [address] [place] [address] Primary Staff Physician Cardiology 01/12/20 Learning And Development Intern Relationship Specialty Start Date End Date Julio Arriaga, RAILROAD EMERGENCY SERVICES MANAGER.FOLDER TIER [address] [place] [phone] PCP - General Internal Medicine 10/18/22 Ismael Kidd (Rn)(Hist), RN Specialty 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 Teacher Hematology/Oncology 08/30/17 Quin Nolan DO [address] [place] [address] Hospice Physician Peripheral Vascular 01/26/19 Jennifer Arias MD [address] [address] Physician Internal Medicine 02/11/19 Ronit Rahman DO [address] [place] [address] Physician Cardiology 02/11/19 Kj Rowe MD [address] [place] [address] Physician Pulmonary and Critical Care Medicine 04/29/19 Ronit Rahman DO [address] [place] [address] Primary Staff Physician Cardiology 01/12/20 Learning And Development Intern Relationship Specialty Start Date End Date Julio Arriaga, RAILROAD EMERGENCY SERVICES MANAGER.FOLDER TIER [address] [place] [phone] PCP - General Internal Medicine 10/18/22 Ismael Kidd (Rn)(Hist), RN Specialty 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 Teacher Hematology/Oncology 08/30/17 Quin Nolan, DO [address] [place], [place] [address]01 Hospice Physician Peripheral Vascular 01/26/19 Jennifer Arias MD [address] [facility] [address] [place] [address] Physician Internal Medicine 02/11/19 Ronit Rahman DO [address] [place] [address] Physician Cardiology 02/11/19 Kj Rowe MD [address] [place], [place] 59[address]11 Physician Pulmonary and Critical Care Medicine 04/29/19 Ronit Rahman DO [address] [place] [address] Primary Staff Physician Cardiology 01/12/20 Learning And Development Intern Relationship Specialty Start Date End Date Julio Arriaga, RAILROAD EMERGENCY SERVICES MANAGER.[employer] [address] [place] [phone] PCP - General Internal Medicine 10/18/22 Ismael Kidd (Rn)(Hist), RN Specialty [employer] 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 Teacher Hematology/Oncology 08/30/17 Quin Nolan, DO [address] [place], [place] [address] Hospice Physician Peripheral Vascular 01/26/19 Jennifer Arias MD [address] [facility] [address] [place] [address] Physician Internal Medicine 02/11/19 Ronit Rahman DO [address] [place] [address] Physician Cardiology 02/11/19 Kj Rowe MD [address] [facility] [place] [place] [address]481 Physician Pulmonary and Critical Care Medicine 04/29/19 Ronit Rahman DO [address] [place] [address] Primary Staff Physician Cardiology 01/12/20 Learning And Development Intern Relationship Specialty Start Date End Date Julio Arriaga, RAILROAD EMERGENCY SERVICES MANAGER.FOLDER TIER [address] [place] [phone] PCP - General Internal Medicine 10/18/22 Ismael Kidd (Rn)(Hist), RN Specialty 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 Teacher Hematology/Oncology 08/30/17 Quin Nolan DO [address] [facility] [place] [place] [address] Hospice Physician Peripheral Vascular 01/26/19 Jennifer Arias MD [address]125 [facility] [address] [place] [address] Physician Internal Medicine 02/11/19 Ronit Rahman DO [address] [place] [address] Physician Cardiology 02/11/19 Kj Rowe MD [address] [place], [place] 518841 Physician Pulmonary and Critical Care Medicine 04/29/19 Ronit Rahman DO [address] [place] [address] Primary Staff Physician Cardiology 01/12/20 Learning And Development Intern Relationship Specialty Start Date End Date Julio Arriaga, RAILROAD EMERGENCY SERVICES MANAGER.FOLDER TIER [address] [place] [phone] PCP - General Internal Medicine 10/18/22 Ismael Kidd (Rn)(Hist), RN Specialty 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 Teacher Hematology/Oncology 08/30/17 Quin Nolan DO [address] [place], [place] 79[address]91 Hospice Physician Peripheral Vascular 01/26/19 Jennifer Arias MD [address] [place] [address] Physician Internal Medicine 02/11/19 Ronit Rahman DO [address] [place] [address] Physician Cardiology 02/11/19 Kj Rowe MD [address] [facility] [place] [place] 0[address]11 Physician Pulmonary and Critical Care Medicine 04/29/19 Ronit aRhman DO [address] [place] [address] Primary Staff Physician Cardiology 01/12/20 Learning And Development Intern Relationship Specialty Start Date End Date Julio Arriaga, RAILROAD EMERGENCY SERVICES MANAGER.FOLDER TIER [address] [place] [phone] PCP - General Internal Medicine 10/18/22 Ismael Kidd (Rn)(Hist), RN Specialty [employer] 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 Teacher Hematology/Oncology 08/30/17 Quin Nolan DO [address] [place] [place], [place] [address] Hospice Physician Peripheral Vascular 01/26/19 Jennifer Arias MD [address]125 [facility] [address] [place], [place] [address]33 Physician Internal Medicine 02/11/19 Ronit Rahman DO [address] [place], [place] [address] Physician Cardiology 02/11/19 Kj Rowe MD [address] [place], [place] 603161 Physician Pulmonary and Critical Care Medicine 04/29/19 Ronit Rahman DO [address] [place] [address] Primary Staff Physician Cardiology 01/12/20 Learning And Development Intern Relationship Specialty Start Date End Date Selene Pierre MD [address] [place], [place] [address]321 PCP - General Internal Medicine 06/03/14 10/17/22 Ismael Kidd (Rn)(Hist), RN Specialty 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 Teacher Hematology/Oncology 08/30/17 Quin Nolan DO [address] [place], [place] [address]301 Hospice Physician Peripheral Vascular 01/26/19 Jennifer Arias MD [address]125 [facility] [address] [place] [address] Physician Internal Medicine 02/11/19 Ronit Rahman DO [address] [place] [address] Physician Cardiology 02/11/19 Kj Rowe MD [address] [place], [place] 978061 Physician Pulmonary and Critical Care Medicine 04/29/19 Ronit Rahman DO [address] [place] [address] Primary Staff Physician Cardiology 01/12/20 Learning And Development Intern Relationship Specialty Start Date End Date Selene Pierre MD [address] [place] [address] PCP - General Internal Medicine 06/03/14 10/17/22 Ismael Kidd (Rn)(Hist), RN Specialty 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 Teacher Hematology/Oncology 08/30/17 Quin Nolan DO [address] [place] [address] Hospice Physician Peripheral Vascular 01/26/19 Jennifer Arias MD [address] [address] Physician Internal Medicine 02/11/19 Ronit Rahman DO [address] [place] [address] Physician Cardiology 02/11/19 Kj Rowe MD [address] [place] [address] Physician Pulmonary and Critical Care Medicine 04/29/19 Ronit Rahman DO [address] [place] [address] Primary Staff Physician Cardiology 01/12/20 Learning And Development Intern Relationship Specialty Start Date End Date Julio Arriaga APRN.FOLDER TIER [address] [place] [address] PCP - General Internal Medicine 10/18/22 Ismael Kidd (Rn)(Hist), RN Specialty 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 Teacher Hematology/Oncology 08/30/17 Quin Nolan DO [address] [place], [place] [address] Hospice Physician Peripheral Vascular 01/26/19 [place] [address] [address] Physician Internal Medicine 02/11/19 Ronit Rahman DO [address] [place] [address] Physician Cardiology 02/11/19 Kj Rowe MD [address] [place] [address] Physician Pulmonary and Critical Care Medicine 04/29/19 Ronit Rahman DO [address] [place] [address] Primary Staff Physician Cardiology 01/12/20 Team Status: Inactive Member Role Status Dates Julio Arriaga CARBON PRINTER, CARBON PRINTER-C Referring Provider Active Dr. Andrez Pitts DO Attending Provider Active Team Status: Inactive Member Role Status Dates Dr. Michael Rawls DO Attending Provider Active Team Status: Inactive Member Role Status Dates Julio Arriaga CARBON PRINTER, CARBON PRINTER-C Primary Care Provider Active Dr. Andrez Pitts DO Attending Provider, Referring Provider Active Learning And Development Intern Relationship Specialty Start Date End Date Julio Arriaga, RAILROAD EMERGENCY SERVICES MANAGER.FOLDER TIER [address] [place] [phone] PCP - General Internal Medicine 10/18/22 Ismael Kidd (Rn)(Hist), RN Specialty High 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 Teacher Hematology/Oncology 08/30/17 Quin Nolan, DO [address] [facility] [place], [place] [address] Hospice Physician Peripheral Vascular 01/26/19 Jennifer Arias MD [address] [address] Physician Internal Medicine 02/11/19 Ronit Rahman DO [address] [place] [address] Physician Cardiology 02/11/19 Kj Rowe MD [address] [facility] [place] [address] Physician Pulmonary and Critical Care Medicine 04/29/19 Ronit Rahman DO [address] [place] [address] Primary Staff Physician Cardiology 01/12/20 Learning And Development Intern Relationship Specialty Start Date End Date Julio Arriaga, RAILROAD EMERGENCY SERVICES MANAGER.FOLDER TIER [address] [place] [phone] PCP - General Internal Medicine 10/18/22 Ismael Kidd (Rn)(Hist), RN Specialty [employer] 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 Teacher Hematology/Oncology 08/30/17 Quin Nolan, DO [address] [place] [place], [place] [address] Hospice Physician Peripheral Vascular 01/26/19 Jennifer Arias MD [address] [facility] [address] [place], [place] 389203 Physician Internal Medicine 02/11/19 Ronit Rahman DO [address] [place], [place] [address]256 Physician Cardiology 02/11/19 Kj Rowe MD [address] [facility] [place] [place] 515[address] Physician Pulmonary and Critical Care Medicine 04/29/19 Ronit Rahman DO [address] [place] [address] Primary Staff Physician Cardiology 01/12/20 Learning And Development Intern Relationship Specialty Start Date End Date Julio Arriaga, RAILROAD EMERGENCY SERVICES MANAGER.FOLDER TIER [address] [place] [address] PCP - General Internal Medicine 10/18/22 Ismael Kidd (Rn)(Hist), RN Specialty [employer] 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 Teacher Hematology/Oncology 08/30/17 Quin Nolan DO [address] [facility] [place], [place] 3130[address] Hospice Physician Peripheral Vascular 01/26/19 Jennifer Arias MD [address] [facility] [address] [place] [address] Physician Internal Medicine 02/11/19 Ronit Rahman DO [address] [place] [address] Physician Cardiology 02/11/19 Kj Rowe MD [address] [place] [address] Physician Pulmonary and Critical Care Medicine 04/29/19 Ronit Rahman DO [address] [place] [address] Primary Staff Physician Cardiology 01/12/20 Learning And Development Intern Relationship Specialty Start Date End Date Julio Arriaga, RAILROAD EMERGENCY SERVICES MANAGER.FOLDER TIER [address] [place] [address] PCP - General Internal Medicine 10/18/22 Ismael Kidd (Rn)(Hist), RN Specialty 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 Teacher Hematology/Oncology 08/30/17 Quin Nolan DO [address] [place] [address] Hospice Physician Peripheral Vascular 01/26/19 Jennifer Arias MD [address] [address] Physician Internal Medicine 02/11/19 Ronit Rahman DO [address] [place] [address] Physician Cardiology 02/11/19 Kj Rowe MD [address] [place] [address] Physician Pulmonary and Critical Care Medicine 04/29/19 Ronit Rahman DO [address] [place] [address] Primary Staff Physician Cardiology 01/12/20 Team Status: Inactive Member Role Status Dates Julio Arriaga CARBON PRINTER, CARBON PRINTER-C Primary Care Provider Active Dr. Pawel Cason MD Emergency Provider Active Learning And Development Intern Relationship Specialty Start Date End Date Julio Arriaga, RAILROAD EMERGENCY SERVICES MANAGER.FOLDER TIER [address] [place] [phone] PCP - General Internal Medicine 10/18/22 Ismael Kidd (Rn)(Hist), RN Specialty 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 Teacher Hematology/Oncology 08/30/17 Quin Nolan, DO [address] [facility] [place], [place] 48[address] Hospice Physician Peripheral Vascular 01/26/19 Jennifer Arias MD [address] [address] Physician Internal Medicine 02/11/19 Ronit Rahman DO [address] [place] [address] Physician Cardiology 02/11/19 Kj Rowe MD [address] [facility] [place] [place] 332[address] Physician Pulmonary and Critical Care Medicine 04/29/19 Ronit Rahman DO [address] [place] [address] Primary Staff Physician Cardiology 01/12/20 Learning And Development Intern Relationship Specialty Start Date End Date Julio Arriaga, RAILROAD EMERGENCY SERVICES MANAGER.FOLDER TIER [address] [place] [address]68 PCP - General Internal Medicine 10/18/22 Ismael Kidd (Rn)(Hist), RN Specialty 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 Teacher Hematology/Oncology 08/30/17 Quin Nolan, DO [address] [place] [place], [place] 16[address] Hospice Physician Peripheral Vascular 01/26/19 Jennifer Arias MD [address] [facility] [address] [place], [place] [address]683 Physician Internal Medicine 02/11/19 Ronit Rahman DO [address], [place] [address]683256 Physician Cardiology 02/11/19 Kj Rowe MD [address] [facility] [place] 5368[address] Physician Pulmonary and Critical Care Medicine 04/29/19 Ronit Rahman DO [address] [place] [address] Primary Staff Physician Cardiology 01/12/20 Learning And Development Intern Relationship Specialty Start Date End Date Julio Arriaga, RAILROAD EMERGENCY SERVICES MANAGER.FOLDER TIER [address] [place] [phone] PCP - General Internal Medicine 10/18/22 Ismael Kidd (Rn)(Hist), RN Specialty 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 Teacher Hematology/Oncology 08/30/17 Quin Nolan DO [address] [facility] [place] [place] [address] Hospice Physician Peripheral Vascular 01/26/19 Jennifer Arias MD [address] [facility] [address] [place] [address] Physician Internal Medicine 02/11/19 Ronit Rahman DO [address] [place] [address] Physician Cardiology 02/11/19 Kj Rowe MD [address] [place] [place], [place] 547481 Physician Pulmonary and Critical Care Medicine 04/29/19 Ronit Rahman DO [address] [place] [address] Primary Staff Physician Cardiology 01/12/20 Andrez Pitts DO [address] [facility] [address] [place], [place] 23[address]31 Gastroenterology 11/21/23 Learning And Development Intern Relationship Specialty Start Date End Date Julio Arriaga, RAILROAD EMERGENCY SERVICES MANAGER.FOLDER TIER [address] [place] [phone] PCP - General Internal Medicine 10/18/22 Ismael Kidd (Rn)(Hist), RN Specialty 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 Teacher Hematology/Oncology 08/30/17 Quin oNlan DO [address] [place], [place] 87[address] Hospice Physician Peripheral Vascular 01/26/19 Jennifer Arias MD 4125 [facility] [address] [place] [address] Physician Internal Medicine 02/11/19 Ronit Rahman DO [address] [place] [address] Physician Cardiology 02/11/19 Kj Rowe MD [address] [place] [address] Physician Pulmonary and Critical Care Medicine 04/29/19 Ronit Rahman DO [address] [place] [address] Primary Staff Physician Cardiology 01/12/20 Andrez Pitts DO [address]61 [facility] [address] [place], [place] [address]161 Gastroenterology 11/21/23 Learning And Development Intern Relationship Specialty Start Date End Date Julio Arriaga, RAILROAD EMERGENCY SERVICES MANAGER.FOLDER TIER [address] [place] [address] PCP - General Internal Medicine 10/18/22 Ismael Kidd (Rn)(Hist), RN Specialty 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 Teacher Hematology/Oncology 08/30/17 Quin Nolan DO [address] [place], [place] 688881 Hospice Physician Peripheral Vascular 01/26/19 Jennifer Arias MD 4125 [facility] [address] [place] [address] Physician Internal Medicine 02/11/19 Ronit Rahman DO [address], [place] 99081256 Physician Cardiology 02/11/19 Kj Rowe MD [address] [address] Physician Pulmonary and Critical Care Medicine 04/29/19 Ronit Rahman DO [address] [place] [address] Primary Staff Physician Cardiology 01/12/20 Andrez Pitts DO [address] [facility] [address] [place], [place] 448381 Gastroenterology 11/21/23 Learning And Development Intern Relationship Specialty Start Date End Date Julio Arriaga, RAILROAD EMERGENCY SERVICES MANAGER.FOLDER TIER [address] [place] [phone] PCP - General Internal Medicine 10/18/22 Ismael Kidd (Rn)(Hist), RN Specialty 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 Teacher Hematology/Oncology 08/30/17 Quin Nolan DO [address] [place] [address] Hospice Physician Peripheral Vascular 01/26/19 Jennifer Arias MD [address] [address] Physician Internal Medicine 02/11/19 Ronit Rahman DO [address] [place], [place] 48549256 Physician Cardiology 02/11/19 Kj Rowe MD [address] [place] [address] Physician Pulmonary and Critical Care Medicine 04/29/19 Ronit Rahman DO [address] [place], [place] [address]5588256 Primary Staff Physician Cardiology 01/12/20 Andrez Pitts DO 1761 [facility] [address] [address] Gastroenterology 11/21/23 Learning And Development Intern Relationship Specialty Start Date End Date Julio Arriaga, RAILROAD EMERGENCY SERVICES MANAGER.FOLDER TIER [address] [place] [address]68 PCP - General Internal Medicine 10/18/22 Ismael Kidd (Rn)(Hist), RN Specialty 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 Teacher Hematology/Oncology 08/30/17 Quin Nolan, DO [address] [place], [place] 040281 Hospice Physician Peripheral Vascular 01/26/19 [place] [address] [place] [address] Physician Internal Medicine 02/11/19 Ronit Rahman DO [address] [place], [place] 14406256 Physician Cardiology 02/11/19 Kj Rowe MD [address] [facility] [place] [place] 09586691 Physician Pulmonary and Critical Care Medicine 04/29/19 Ronit Rahman DO [address] [place] [address] Primary Staff Physician Cardiology 01/12/20 Andrez Pitts, DO [address] [facility] [address] [address] Gastroenterology 11/21/23 Learning And Development Intern Relationship Specialty Start Date End Date Julio Arriaga, RAILROAD EMERGENCY SERVICES MANAGER.FOLDER TIER [address] [place] [phone] PCP - General Internal Medicine 10/18/22 Ismael Kidd (Rn)(Hist), RN Specialty 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 Teacher Hematology/Oncology 08/30/17 Quin Nolan, DO [address] [facility] [place] 47[address] Hospice Physician Peripheral Vascular 01/26/19 Jennifer Arias MD [address] [facility] [address] [place], [place] [address] Physician Internal Medicine 02/11/19 Ronit Rahman DO [address] [place], [place] 11417256 Physician Cardiology 02/11/19 Kj Rowe MD [address] [place] [address] Physician Pulmonary and Critical Care Medicine 04/29/19 Ronit Rahman DO [address] [place], [place] 27079256 Primary Staff Physician Cardiology 01/12/20 Andrez Pitts DO 1761 [facility] [address] [place] [address] Gastroenterology 11/21/23 Learning And Development Intern Relationship Specialty Start Date End Date Selene Pierre MD [address] [place] [address] PCP - General Internal Medicine 06/03/14 10/17/22 Ismael Kidd (Rn)(Hist), RN Specialty 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 Teacher Hematology/Oncology 08/30/17 Quin Nolan DO [address] [place], [place] 26037691 Hospice Physician Peripheral Vascular 01/26/19 Jennifer Arias MD 4125 [facility] [address] [place], [place] 350653 Physician Internal Medicine 02/11/19 Ronit Rahman DO [address] [place], [place] 87560256 Physician Cardiology 02/11/19 Kj Rowe MD [address] [place], [place] 609941 Physician Pulmonary and Critical Care Medicine 04/29/19 Ronit Rahman DO [address] [place] [address] Primary Staff Physician Cardiology 01/12/20 Learning And Development Intern Relationship Specialty Start Date End Date Julio Arriaga, RAILROAD EMERGENCY SERVICES MANAGER.FOLDER TIER [address] [place] [address]68 PCP - General Internal Medicine 10/18/22 Ismael Kidd (Rn)(Hist), RN Specialty 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 Teacher Hematology/Oncology 08/30/17 Quin Nolan DO [address] [place], [place] 638301 Hospice Physician Peripheral Vascular 01/26/19 Jennifer Arias MD [address] [address] Physician Internal Medicine 02/11/19 Ronit Rahman DO [address] [place] [address] Physician Cardiology 02/11/19 Kj Rowe MD [address] [place], [place] 047481 Physician Pulmonary and Critical Care Medicine 04/29/19 Ronit Rahman DO [address] [place] [address] Primary Staff Physician Cardiology 01/12/20 Andrez Pitts DO 1761 [facility] [address] [place], [place] 392471 Gastroenterology 11/21/23 Learning And Development Intern Relationship Specialty Start Date End Date Julio Arriaga, RAILROAD EMERGENCY SERVICES MANAGER.FOLDER TIER [address] [place] [address] PCP - General Internal Medicine 10/18/22 Ismael Kidd (Rn)(Hist), RN Specialty 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 Teacher Hematology/Oncology 08/30/17 Quin Nolan DO [address] [place] [address] Hospice Physician Peripheral Vascular 01/26/19 Jennifer Arias MD [address] [address] Physician Internal Medicine 02/11/19 Ronit Rahman DO [address] [place], [place] 68847256 Physician Cardiology 02/11/19 Kj Rowe MD [address] [place] [address] Physician Pulmonary and Critical Care Medicine 04/29/19 Ronit Rahman DO [address] [place] [address] Primary Staff Physician Cardiology 01/12/20 Andrez Pitts DO 1761 [facility] [address] [place] [address] Gastroenterology 11/21/23 Learning And Development Intern Relationship Specialty Start Date End Date Julio Arriaga, RAILROAD EMERGENCY SERVICES MANAGER.FOLDER TIER [address] [place] [address] PCP - General Internal Medicine 10/18/22 Ismael Kidd (Rn)(Hist), RN Specialty 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 Teacher Hematology/Oncology 08/30/17 Quin Nolan DO [address] [place] [address] Hospice Physician Peripheral Vascular 01/26/19 Jennifer Arias MD [address] [address] Physician Internal Medicine 02/11/19 Ronit Rahman DO [address] [place], [place] 58573256 Physician Cardiology 02/11/19 Kj Rowe MD [address] [place], [place] 794651 Physician Pulmonary and Critical Care Medicine 04/29/19 Ronit Rahman DO [address] [place], [place] 03455256 Primary Staff Physician Cardiology 01/12/20 Andrez Pitts DO [address] 6015[address] Gastroenterology 11/21/23 Learning And Development Intern Relationship Specialty Start Date End Date Julio Arriaga, RAILROAD EMERGENCY SERVICES MANAGER.FOLDER TIER [address] [place] [address] PCP - General Internal Medicine 10/18/22 Ismael Kidd (Rn)(Hist), RN Specialty 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 Teacher Hematology/Oncology 08/30/17 Quin Nolan, DO [address] [facility] [place] [place] [address] Hospice Physician Peripheral Vascular 01/26/19 Jennifer Arias MD 4125 [facility] [address] [place] [address] Physician Internal Medicine 02/11/19 Ronit Rahman DO [address] [place] [address] Physician Cardiology 02/11/19 Kj Rowe MD [address] [place] [address] Physician Pulmonary and Critical Care Medicine 04/29/19 Ronit Rahman DO [address] [place] [address] Primary Staff Physician Cardiology 01/12/20 Andrez Pitts, DO 1761 [facility] [address] [place], [place] 380371 Gastroenterology 11/21/23 Learning And Development Intern Relationship Specialty Start Date End Date Julio Arriaga, RAILROAD EMERGENCY SERVICES MANAGER.FOLDER TIER [address] [place] [phone] PCP - General Internal Medicine 10/18/22 Ismael Kidd (Rn)(Hist), RN Specialty 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 Teacher Hematology/Oncology 08/30/17 Quin Nolan, DO [address] [place] [address] Hospice Physician Peripheral Vascular 01/26/19 Jennifer Arias MD 4125 [facility] [address] [place] [address] Physician Internal Medicine 02/11/19 Ronit Rahman DO [address] [place], [place] 05848256 Physician Cardiology 02/11/19 Kj Rowe MD [address] [place], [place] 0[address]951 Physician Pulmonary and Critical Care Medicine 04/29/19 Ronit Rahman DO [address] [place] [address] Primary Staff Physician Cardiology 01/12/20 Andrez Pitts DO [address] [facility] [address] [place], [place] [address]3021 Gastroenterology 11/21/23 Learning And Development Intern Relationship Specialty Start Date End Date Julio Arriaga, RAILROAD EMERGENCY SERVICES MANAGER.FOLDER TIER [address] [place] [address] PCP - General Internal Medicine 10/18/22 Ismael Kidd (Rn)(Hist), RN Specialty 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 Teacher Hematology/Oncology 08/30/17 Quin Nolan DO [address] [place], [place] [address]89251 Hospice Physician Peripheral Vascular 01/26/19 Jennifer Arias MD 4125 [facility] [address] [place], [place] 951083 Physician Internal Medicine 02/11/19 Ronit Rahamn DO [address] [place], [place] 19779256 Physician Cardiology 02/11/19 Kj Rowe MD [address] [place], [place] 654051 Physician Pulmonary and Critical Care Medicine 04/29/19 Ronit Rahman DO [address] [place] [address] Primary Staff Physician Cardiology 01/12/20 Andrez Pitts DO [address] [address] Gastroenterology 11/21/23 Learning And Development Intern Relationship Specialty Start Date End Date Julio Arriaga, RAILROAD EMERGENCY SERVICES MANAGER.FOLDER TIER [address] [place] [phone] PCP - General Internal Medicine 10/18/22 Ismael Kidd (Rn)(Hist), RN Specialty 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 Teacher Hematology/Oncology 08/30/17 Quin Nolan DO [address] [place] [address] Hospice Physician Peripheral Vascular 01/26/19 Jennifer Arias MD [address] [address] Physician Internal Medicine 02/11/19 Ronit Rahman DO [address] [place] [address] Physician Cardiology 02/11/19 Kj Rowe MD [address] [place] [address] Physician Pulmonary and Critical Care Medicine 04/29/19 Ronit Rahman DO [address] [place] [address] Primary Staff Physician Cardiology 01/12/20 Andrez Pitts DO 1761 [facility] [address] [place] [address] Gastroenterology 11/21/23 Learning And Development Intern Relationship Specialty Start Date End Date Julio Arriaga, RAILROAD EMERGENCY SERVICES MANAGER.FOLDER TIER [address] [place] [phone] PCP - General Internal Medicine 10/18/22 Ismael Kidd (Rn)(Hist), RN Specialty 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 Teacher Hematology/Oncology 08/30/17 Quin Nolan DO [address] [facility] [place] [place] 262671 Hospice Physician Peripheral Vascular 01/26/19 Jennifer Arias MD 4125 [facility] [address] [place] [address] Physician Internal Medicine 02/11/19 Ronit Rahman DO [address] [place] [address] Physician Cardiology 02/11/19 Kj Rowe MD [address] [place] [address] Physician Pulmonary and Critical Care Medicine 04/29/19 Ronit Rahman DO [address] [place] [address] Primary Staff Physician Cardiology 01/12/20 Andrez Pitts DO 1761 [facility] [address] [place], [place] 263091 Gastroenterology 11/21/23 Learning And Development Intern Relationship Specialty Start Date End Date Julio Arriaga, RAILROAD EMERGENCY SERVICES MANAGER.FOLDER TIER [address] [place] [phone] PCP - General Internal Medicine 10/18/22 Ismael Kidd (Rn)(Hist), RN Specialty 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 Teacher Hematology/Oncology 08/30/17 Quin Nolan DO [address], [place] 77457691 Hospice Physician Peripheral Vascular 01/26/19 Jennifer Arias MD [address] [address] Physician Internal Medicine 02/11/19 Ronit Rahman DO [address] [place], [place] 98661256 Physician Cardiology 02/11/19 Kj Rowe MD [address] [place], [place] 054041 Physician Pulmonary and Critical Care Medicine 04/29/19 Ronit Rahman DO [address] [place], [place] 20281256 Primary Staff Physician Cardiology 01/12/20 Andrez Pitts DO [address] [id number] Gastroenterology 11/21/23 Learning And Development Intern Relationship Specialty Start Date End Date Julio Arriaga, RAILROAD EMERGENCY SERVICES MANAGER.FOLDER TIER [address] [place] [phone] PCP - General Internal Medicine 10/18/22 Ismael Kidd (Rn)(Hist), RN Specialty 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 Teacher Hematology/Oncology 08/30/17 Quin Nolan, DO [address] [facility] [place], [place] [address] Hospice Physician Peripheral Vascular 01/26/19 Jennifer Arias MD [address] [address] Physician Internal Medicine 02/11/19 Ronit Rahman DO [address] [place], [place] 97373256 Physician Cardiology 02/11/19 Kj Rowe MD [address] [facility] [place], [place] [address] Physician Pulmonary and Critical Care Medicine 04/29/19 Ronit Rahman DO [address] [place], [place] 85169256 Primary Staff Physician Cardiology 01/12/20 Andrez Pitts, DO 1761 [facility] [address] [address]01 Gastroenterology 11/21/23 Learning And Development Intern Relationship Specialty Start Date End Date Julio Arriaga, RAILROAD EMERGENCY SERVICES MANAGER.FOLDER TIER [address] [place] [phone] PCP - General Internal Medicine 10/18/22 Ismael Kidd (Rn)(Hist), RN Specialty 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 Teacher Hematology/Oncology 08/30/17 Quin Nolan, DO [address] [place], [place] 168381 Hospice Physician Peripheral Vascular 01/26/19 Jennifer Arias MD 4125 [facility] [address] [place], [place] 415213 Physician Internal Medicine 02/11/19 Ronit Rahman DO [address] [place] [address] Physician Cardiology 02/11/19 Kj Rowe MD [address] [place], [place] 524611 Physician Pulmonary and Critical Care Medicine 04/29/19 Ronit Rahman DO [address] [place] [address] Primary Staff Physician Cardiology 01/12/20 Andrez Pitts DO 1761 [facility] [place], [place] [address]13581 Gastroenterology 11/21/23 Learning And Development Intern Relationship Specialty Start Date End Date Julio Arriaga, RAILROAD EMERGENCY SERVICES MANAGER.FOLDER TIER [address] [place] [phone] PCP - General Internal Medicine 10/18/22 Ismael Kidd (Rn)(Hist), RN Specialty 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 Teacher Hematology/Oncology 08/30/17 Quin Nolan DO [address] [place], [place] 67405691 Hospice Physician Peripheral Vascular 01/26/19 Jennifer Arias MD 4125 [facility] [address] [place], [place] 930653 Physician Internal Medicine 02/11/19 Ronit Rahman DO [address] [place] [address] Physician Cardiology 02/11/19 Kj Rowe MD [address] [place] [address] Physician Pulmonary and Critical Care Medicine 04/29/19 Ronit Rahman DO [address] [place] [address] Primary Staff Physician Cardiology 01/12/20 Andrez Pitts DO [address] 532411 Gastroenterology 11/21/23 Learning And Development Intern Relationship Specialty Start Date End Date Julio Arriaga, RAILROAD EMERGENCY SERVICES MANAGER.FOLDER TIER [address] [place] [address] PCP - General Internal Medicine 10/18/22 Ismael Kidd (Rn)(Hist), RN Specialty 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 Teacher Hematology/Oncology 08/30/17 Quin Nolan DO [address] [place] [address] Hospice Physician Peripheral Vascular 01/26/19 Jennifer Arias MD [address] [address] Physician Internal Medicine 02/11/19 Ronit Rahman DO [address] [place] [address] Physician Cardiology 02/11/19 09/15/24 Kj Rowe MD [address] [place] [address] Physician Pulmonary and Critical Care Medicine 04/29/19 09/15/24 Ronit Rahman DO [address] [place] [address] Primary Staff Physician Cardiology 01/12/20 09/15/24 Andrez Pitts DO [address] [address] Gastroenterology 11/21/23 Kenya Garcia MD [address] [place] [address] General Surgery 09/15/24 Sidney Joya MD [address] [place] [address] Radiation Oncology 09/16/24 [place] [address] [place] [address] Cardiology 09/16/24 Sarah Pearson PA-C [address] [place], [place] 824450 Rheumatology 09/16/24 Learning And Development Intern Relationship Specialty Start Date End Date Julio Arriaga, RAILROAD EMERGENCY SERVICES MANAGER.FOLDER TIER [address] [place] [phone] PCP - General Internal Medicine 10/18/22 Ismael Kidd (Rn)(Hist), RN Specialty 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 Teacher Hematology/Oncology 08/30/17 Quin oNlan DO [address] [place] [address] Hospice Physician Peripheral Vascular 01/26/19 Jennifer Arias MD [address] [place] [address] Physician Internal Medicine 02/11/19 Ronit Rahman DO [address] [place] [address] Physician Cardiology 02/11/19 09/15/24 Kj Rowe MD [address] [place], [place] 641881 Physician Pulmonary and Critical Care Medicine 04/29/19 09/15/24 Ronit Rahman DO [address] [place] [address] Primary Staff Physician Cardiology 01/12/20 09/15/24 Andrez Pitts DO [address] [address] Gastroenterology 11/21/23 Kenya Garcia MD 1761 [facility] [place] [address] General Surgery 09/15/24 Learning And Development Intern Relationship Specialty Start Date End Date Julio Arriaga, RAILROAD EMERGENCY SERVICES MANAGER.FOLDER TIER [address] [place] [phone] PCP - General Internal Medicine 10/18/22 Ismael Kidd (Rn)(Hist), RN Specialty 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 Teacher Hematology/Oncology 08/30/17 Quin Nolan DO [address] [place], [place] 999301 Hospice Physician Peripheral Vascular 01/26/19 Jennifer Arias MD [address] [facility] [address] [place], [place] 542773 Physician Internal Medicine 02/11/19 Andrez Pitts DO [address] [facility] [address] [place], [place] 59[address]81 Gastroenterology 11/21/23 Kenya Garcia MD [address] [place] [address] General Surgery 09/15/24 Sidney Joya MD [address] [place] [address] Radiation Oncology 09/16/24 Fredi Jones MD 1261 [facility] 110 [place], [place] 69[address]94 Cardiology 09/16/24 Sarah Pearson, PAMadayC [address] [place], [place] 449970 Rheumatology 09/16/24 Learning And Development Intern Relationship Specialty Start Date End Date Julio Arriaga, RAILROAD EMERGENCY SERVICES MANAGER.FOLDER TIER [address] [place] [phone] PCP - General Internal Medicine 10/18/22 Ismael Kidd (Rn)(Hist), RN Specialty 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 Teacher Hematology/Oncology 08/30/17 Quin Nolan DO [address] [place] [address] Hospice Physician Peripheral Vascular 01/26/19 Jennifer Arias MD 4125 [facility] 209 [place], [place] 733393 Physician Internal Medicine 02/11/19 Andrez Pitts DO [address] [facility] [address] [place], [place] [address]01 Gastroenterology 11/21/23 Kenya Garcai MD [address] [place] [address] General Surgery 09/15/24 Sidney Joya MD [address] [place], [place] 65120691 Radiation Oncology 09/16/24 Fredi Jones MD 1261 [facility] 110 [place], [place] [id number] Cardiology 09/16/24 Sarah Pearson PA-C [address] [place], [place] [id number] Rheumatology 09/16/24 Learning And Development Intern Relationship Specialty Start Date End Date Julio Arriaga, RAILROAD EMERGENCY SERVICES MANAGER.FOLDER TIER [address] [place] [phone] PCP - General Internal Medicine 10/18/22 Ismael Kidd (Rn)(Hist), RN Specialty 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 Teacher Hematology/Oncology 08/30/17 Quin Nolan DO [address] [place], [place] 21354691 Hospice Physician Peripheral Vascular 01/26/19 Jennifer Arias MD 4125 [facility] 209 [place], [place] 839583 Physician Internal Medicine 02/11/19 Andrez Pitts DO [address] [facility] [address] [place], [place] 817241 Gastroenterology 11/21/23 Kenya Garcia MD [address] [place] [address] General Surgery 09/15/24 Sidney Joya MD [address] [place], [place] 705221 Radiation Oncology 09/16/24 Fredi Jones MD 1261 [facility] 110 [place], [place] 385764 Cardiology 09/16/24 Sarah Pearson PA-C [address] [place], [place] 685340 Rheumatology 09/16/24 Raul Hendrix LISW [address] [place] [address] Transport Assistant Hematology/Oncology 09/18/24 Learning And Development Intern Relationship Specialty Start Date End Date Julio Arriaga, RAILROAD EMERGENCY SERVICES MANAGER.FOLDER TIER [address] [place] [phone] PCP - General Internal Medicine 10/18/22 Ismael Kidd (Rn)(Hist), RN Specialty 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 Teacher Hematology/Oncology 08/30/17 Quin Nolan DO [address] [place], [place] 216771 Hospice Physician Peripheral Vascular 01/26/19 Jennifer Arias MD 4125 [facility] 209 [place], [place] 179943 Physician Internal Medicine 02/11/19 Andrez Pitts DO [address] [facility] [address] [place], [place] [address] Gastroenterology 11/21/23 Kenya Garcia MD [address] [place] [address] General Surgery 09/15/24 Sidney Joya MD [address] [place], [place] 406341 Radiation Oncology 09/16/24 Fredi Jones MD 1261 [facility] 110 [place], [place] [id number] Cardiology 09/16/24 Sarah Pearson PA-C [address] [place], [place] [phone] Rheumatology 09/16/24 Raul Hendrix LISW [address] [place] [address] Transport Assistant Hematology/Oncology 09/18/24 Learning And Development Intern Relationship Specialty Start Date End Date Julio Arriaga, RAILROAD EMERGENCY SERVICES MANAGER.FOLDER TIER [address] [place] [phone] PCP - General Internal Medicine 10/18/22 Ismael Kidd (Rn)(Hist), RN Specialty 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 Teacher Hematology/Oncology 08/30/17 Quin Nolan DO [address] [place], [place] 086891 Hospice Physician Peripheral Vascular 01/26/19 Jennifer Arias MD [address] [facility] 209 [place], [place] 662523 Physician Internal Medicine 02/11/19 Andrez Pitts DO [address] [facility] [address] [place], [place] [address]8021 Gastroenterology 11/21/23 Kenya Garcia MD [address] [place], [place] 195521 General Surgery 09/15/24 Sidney Joya MD [address] [place], [place] 35130691 Radiation Oncology 09/16/24 Fredi Jones MD 1261 [facility] 110 [place], [place] 85924654 Cardiology 09/16/24 Sarah Pearson PA-C [address] [place], [place] 689240 Rheumatology 09/16/24 Learning And Development Intern Relationship Specialty Start Date End Date Julio Arriaga, RAILROAD EMERGENCY SERVICES MANAGER.FOLDER TIER [address] [place] [phone] PCP - General Internal Medicine 10/18/22 Ismael Kidd (Rn)(Hist), RN Specialty 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 Teacher Hematology/Oncology 08/30/17 Quin Nolan DO [address] [place], [place] 46635691 Hospice Physician Peripheral Vascular 01/26/19 Jennifer Arias MD [address] [facility] 209 [place], [place] 688673 Physician Internal Medicine 02/11/19 Andrez Pitts DO [address] [facility] [address] [place], [place] 736511 Gastroenterology 11/21/23 Kenya Garcia MD [address] [place] [address] General Surgery 09/15/24 Sidney Joya MD [address] [place], [place] 956471 Radiation Oncology 09/16/24 Fredi Jones MD 1261 [facility] 110 [place], [place] 982944 Cardiology 09/16/24 Sarah Pearson, LIZZIE [address] [place], [place] 664140 Rheumatology 09/16/24 Raul Hendrix LISW [address] [place] [address] Transport Assistant Hematology/Oncology 09/18/24 Learning And Development Intern Relationship Specialty Start Date End Date Julio Arriaga, RAILROAD EMERGENCY SERVICES MANAGER.FOLDER TIER [address] [place] [phone] PCP - General Internal Medicine 10/18/22 Ismael Kidd (Rn)(Hist), RN Specialty 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 Teacher Hematology/Oncology 08/30/17 Quin Nolan DO [address] [place], [place] 334671 Hospice Physician Peripheral Vascular 01/26/19 Jennifer Arias MD [address] [facility] 209 [place], [place] 783563 Physician Internal Medicine 02/11/19 Andrez Pitts DO [address] [facility] [address] [place], [place] 977081 Gastroenterology 11/21/23 Kenya Garcia MD [address] [place] [address] General Surgery 09/15/24 Sidney Joya MD [address] [place] [address] Radiation Oncology 09/16/24 Fredi Jones MD 1261 [facility] 110 [place] [address] Cardiology 09/16/24 Sarah Pearson PA-C [address] [place] [address] Rheumatology 09/16/24 Raul Hendrix LISW 7[address] [place] [address] Transport Assistant Hematology/Oncology 09/18/24 Josh Bennett DO [address] [place], [place] 284881 Hematology/Oncology 09/25/24 Roxanne Bland RN [employer]ty 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 Teacher Oncology 09/25/24 Learning And Development Intern Relationship Specialty Start Date End Date Julio Arriaga, RAILROAD EMERGENCY SERVICES MANAGER.FOLDER TIER [address] [place] [phone] PCP - General Internal Medicine 10/18/22 Ismael Kidd (Rn)(Hist), RN Specialty 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 Teacher Hematology/Oncology 08/30/17 Quin Nolan DO [address] [place], [place] 318591 Hospice Physician Peripheral Vascular 01/26/19 Jennifer Arias MD [address] [facility] 209 [place] [address] Physician Internal Medicine 02/11/19 Andrze Pitts DO [address] [facility] [address] [place], [place] 981051 Gastroenterology 11/21/23 Kenya Garcia MD [address] [place] [address] General Surgery 09/15/24 Sidney Joya MD [address] [place] [place], [place] 387091 Radiation Oncology 09/16/24 Fredi Jones MD 1261 [facility] 110 [place], [place] 47770654 Cardiology 09/16/24 Sarah Pearson PA-C [address] [place], [place] 706620 Rheumatology 09/16/24 Raul Hendrix LISW [address] [place] [address] Transport Assistant Hematology/Oncology 09/18/24 Josh Bennett DO [address] [place], [place] 81706691 Hematology/Oncology 09/25/24 Roxanne Bland RN [employer]ty 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 Teacher Oncology 09/25/24 Learning And Development Intern Relationship Specialty Start Date End Date Julio Arriaga, RAILROAD EMERGENCY SERVICES MANAGER.FOLDER TIER [address] [place] [phone] PCP - General Internal Medicine 10/18/22 Ismael Kidd (Rn)(Hist), RN Specialty 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 Teacher Hematology/Oncology 08/30/17 Quin Nolan DO [address] [place] [address] Hospice Physician Peripheral Vascular 01/26/19 Jennifer Arias MD [address] [facility] 209 [place], [place] 283853 Physician Internal Medicine 02/11/19 Andrez Pitts DO 1761 [facility] 3B [place], [place] 080451 Gastroenterology 11/21/23 Kenya Garcia MD [address] [place] [address] General Surgery 09/15/24 Sidney Joya MD [address] [place] [address] Radiation Oncology 09/16/24 Fredi Jones MD 1261 [facility] 110 [place], [place] 247004 Cardiology 09/16/24 Sarah Pearson PA-C [address] [place], [place] 70972240 Rheumatology 09/16/24 Raul Hendrix LISW [address] [place] [address] Transport Assistant Hematology/Oncology 09/18/24 Josh Bennett DO [address] [place] [address] Hematology/Oncology 09/25/24 Roxanne Bland, RN Specialty 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 Teacher Oncology 09/25/24 Learning And Development Intern Relationship Specialty Start Date End Date Julio Arriaga, RAILROAD EMERGENCY SERVICES MANAGER.FOLDER TIER [address]61 [place] [phone] PCP - General Internal Medicine 10/18/22 Ismael Kidd (Rn)(Hist), RN Specialty 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 Teacher Hematology/Oncology 08/30/17 Quin Nolan DO [address] [place], [place] 969271 Hospice Physician Peripheral Vascular 01/26/19 Jennifer Arias MD 4125 [facility] 209 [place], [place] 455343 Physician Internal Medicine 02/11/19 Andrez Pitts DO [address] [facility] 3[address] [place] [address] Gastroenterology 11/21/23 Kenya Garcia MD [address] [place] [address] General Surgery 09/15/24 Sidney Joya MD [address] [place] [address] Radiation Oncology 09/16/24 Fredi Jones MD 1261 [facility] 110 [place] [address] Cardiology 09/16/24 Sarah Pearson PA-C [address] [place], [place] 615380 Rheumatology 09/16/24 Raul Hendrix LISW [address] [place] [address] Transport Assistant Hematology/Oncology 09/18/24 Josh Bennett DO [address] [place] [address] Hematology/Oncology 09/25/24 Roxanne Bland RN [employer]ty 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 Teacher Oncology 09/25/24 Learning And Development Intern Relationship Specialty Start Date End Date Julio Arriaga, RAILROAD EMERGENCY SERVICES MANAGER.FOLDER TIER [address] [place] [phone] PCP - General Internal Medicine 10/18/22 Ismael Kidd (Rn)(Hist), RN [employer]ty 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 Teacher Hematology/Oncology 08/30/17 Quin Nolan DO [address] [place], [place] 532371 Hospice Physician Peripheral Vascular 01/26/19 Jennifer Arias MD [address] [place] [address] Physician Internal Medicine 02/11/19 Andrez Pitts DO [address] [address] Gastroenterology 11/21/23 Kenya Garcia MD [address] [place] [address] General Surgery 09/15/24 Sidney Joya MD [address] [place] [address] Radiation Oncology 09/16/24 Fredi Jones MD 1261 [facility] 110 [place] [address] Cardiology 09/16/24 Sarah Pearson PA-C [address] [place] [address] Rheumatology 09/16/24 Raul Hendrix LISW 721 [place] [address] Transport Assistant Hematology/Oncology 09/18/24 Josh Bennett DO [address] [place] [address] Hematology/Oncology 09/25/24 Roxanne Bland RN [employer]ty 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 Teacher Oncology 09/25/24 Learning And Development Intern Relationship Specialty Start Date End Date Julio Arriaga, RAILROAD EMERGENCY SERVICES MANAGER.FOLDER TIER [address] [place] [phone] PCP - General Internal Medicine 10/18/22 Ismael Kidd (Rn)(Hist), RN [employer]ty 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 Teacher Hematology/Oncology 08/30/17 Quin Nolan DO [address] [place], [place] 020041 Hospice Physician Peripheral Vascular 01/26/19 Jennifer Arias MD [address] [facility] 209 [place] [address] Physician Internal Medicine 02/11/19 Andrez Pitts DO [address] [facility] 3[address] [place], [place] 269641 Gastroenterology 11/21/23 Kenya Garcia MD [address] [place], [place] 040921 General Surgery 09/15/24 Sidney Joya MD [address] [facility] 278031 Radiation Oncology 09/16/24 Fredi Jones MD 1261 [facility] 110 [place], [place] [address]3814 Cardiology 09/16/24 Sarah Pearson PA-C [address] [place], [place] [id number] Rheumatology 09/16/24 Raul Hendrix LISW [address] [place] [address] Transport Assistant Hematology/Oncology 09/18/24 Josh Bennett DO [address] [place] [address] Hematology/Oncology 09/25/24 Roxanne Bland, LÓPEZ [employer]ty 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 Teacher Oncology 09/25/24 Learning And Development Intern Relationship Specialty Start Date End Date Julio Arriaga, RAILROAD EMERGENCY SERVICES MANAGER.FOLDER TIER [address] [place] [phone] PCP - General Internal Medicine 10/18/22 Ismael Kidd (Rn)(Hist), RN [employer]ty 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 Teacher Hematology/Oncology 08/30/17 Quin Nolan DO [address] [place], [place] 28520691 Hospice Physician Peripheral Vascular 01/26/19 Jennifer Arias MD [address] [facility] 209 [place], [place] 275383 Physician Internal Medicine 02/11/19 Andrez Pitts DO [address] [facility] 3B [place] [address] Gastroenterology 11/21/23 Kenya Garcia MD [address] [place] [address] General Surgery 09/15/24 Sidney Joya MD [address] [place] [address] Radiation Oncology 09/16/24 Fredi Jones MD 1261 [facility] 110 [place] [address] Cardiology 09/16/24 Sarah Pearson PA-C [address] [place] [address] Rheumatology 09/16/24 Raul Hendrix LISW 721 [place] [address] Transport Assistant Hematology/Oncology 09/18/24 Josh Bennett DO [address] [place] [address] Hematology/Oncology 09/25/24 Roxanne Bland RN [employer]ty 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 Teacher Oncology 09/25/24 Learning And Development Intern Relationship Specialty Start Date End Date Julio Arriaga, RAILROAD EMERGENCY SERVICES MANAGER.FOLDER TIER [address] [place] [phone] PCP - General Internal Medicine 10/18/22 Ismael Kidd (Rn)(Hist), RN Specialty 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 Teacher Hematology/Oncology 08/30/17 Quin Nolan DO [address] [place], [place] 70167691 Hospice Physician Peripheral Vascular 01/26/19 Jennifer Arias MD [address] [facility] 209 [place], [place] 020603 Physician Internal Medicine 02/11/19 Andrez Pitts DO 1761 [facility] 3B [place], [place] [address]2621 Gastroenterology 11/21/23 Kenya Garcia MD 1761 [facility] [place] [address] General Surgery 09/15/24 Sidney Joya MD [address] [facility] [place], [place] 429551 Radiation Oncology 09/16/24 Fredi Jones MD 1261 [facility] 110 [place], [place] 756364 Cardiology 09/16/24 Sarah Pearson PA-C [address] [place], [place] 127210 Rheumatology 09/16/24 Raul Hendrix LISW [address] [place] [address] Transport Assistant Hematology/Oncology 09/18/24 Josh Bennett DO [address] [place], [place] 659451 Hematology/Oncology 09/25/24 Roxanne Bland, LÓPEZ Specialty 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 Teacher Oncology 09/25/24 Learning And Development Intern Relationship Specialty Start Date End Date Julio Arriaga, RAILROAD EMERGENCY SERVICES MANAGER.FOLDER TIER [address] [place] [phone] PCP - General Internal Medicine 10/18/22 Ismael Kidd (Rn)(Hist), RN [employer]ty 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 Teacher Hematology/Oncology 08/30/17 Quin Nolan DO [address] [place] [address] Hospice Physician Peripheral Vascular 01/26/19 Jennifer Arias MD [address] [facility] 209 [place], [place] 711883 Physician Internal Medicine 02/11/19 Andrez Pitts DO [address] [facility] 3B [place], [place] 121441 Gastroenterology 11/21/23 Kenya Garcia MD [address] [place] [address] General Surgery 09/15/24 Sidney Joya MD [address] [place] [address] Radiation Oncology 09/16/24 Fredi Jones MD 1261 [facility] 110 [place], [place] 757704 Cardiology 09/16/24 Sarah Pearson, PARowan [address] [place], [place] 501960 Rheumatology 09/16/24 Raul Hendrix LISW [address] [place] [address] Transport Assistant Hematology/Oncology 09/18/24 Josh Bennett DO [address] [place] [address] Hematology/Oncology 09/25/24 Roxanne Bland, LÓPEZ [employer]ty 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 Teacher Oncology 09/25/24 Learning And Development Intern Relationship Specialty Start Date End Date Julio Arriaga, RAILROAD EMERGENCY SERVICES MANAGER.FOLDER TIER [address] [place] [address] PCP - General Internal Medicine 10/18/22 Ismael Kidd (Rn)(Hist), RN [employer]ty 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 Teacher Hematology/Oncology 08/30/17 Quin Nolan DO [address] [place] [place], [place] 402931 Hospice Physician Peripheral Vascular 01/26/19 Jennifer Arias MD [address] [facility] [address] [place], [place] 528343 Physician Internal Medicine 02/11/19 Andrez Pitts DO [address] [facility] 3[address] [place] [address] Gastroenterology 11/21/23 Kenya Garcia MD [address] [place] [address] General Surgery 09/15/24 Sidney Joya MD [address] [place] [address] Radiation Oncology 09/16/24 Fredi Jones MD [address] JUAN A [address] [place], [place] 548544 Cardiology 09/16/24 Sarah Pearson PA-C [address] [place], [place] 658880 Rheumatology 09/16/24 Raul Hendrix LISW [address] [place] [address] Transport Assistant Hematology/Oncology 09/18/24 Josh Bennett DO [address] [place] [address] Hematology/Oncology 09/25/24 Roxanne Bland RN [employer]ty 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 Teacher Oncology 09/25/24 Learning And Development Intern Relationship Specialty Start Date End Date Julio Arriaga, RAILROAD EMERGENCY SERVICES MANAGER.FOLDER TIER [address] [place] [phone] PCP - General Internal Medicine 10/18/22 Ismael Kidd (Rn)(Hist), RN [employer]ty 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 Teacher Hematology/Oncology 08/30/17 Quin Nolan DO [address] [place] [address] Hospice Physician Peripheral Vascular 01/26/19 Jennifer Arias MD [address] JUAN A [address] [place], [place] 925153 Physician Internal Medicine 02/11/19 Andrez Pitts DO [address] [facility] [address] [place] [address] Gastroenterology 11/21/23 Kenya Garcia MD [address] [place] [address] General Surgery 09/15/24 Sidney Joya MD [address] [place] [address] Radiation Oncology 09/16/24 Fredi Jones MD [address] JUAN A [address] [place] [address] Cardiology 09/16/24 Sarah Pearson PA-C [address] [place], [place] 054700 Rheumatology 09/16/24 Raul Hendrix LISW [address] [place] [address] Transport Assistant Hematology/Oncology 09/18/24 Josh Bennett DO [address] [place], [place] 970991 Hematology/Oncology 09/25/24 Roxanne Bland RN [employer]ty 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 Teacher Oncology 09/25/24 Learning And Development Intern Relationship Specialty Start Date End Date Julio Arriaga, RAILROAD EMERGENCY SERVICES MANAGER.FOLDER TIER [address]61 [place] [phone] PCP - General Internal Medicine 10/18/22 Ismael Kidd (Rn)(Hist), RN [employer]ty 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 Teacher Hematology/Oncology 08/30/17 Quin Nolan DO [address] [place], [place] 930971 Hospice Physician Peripheral Vascular 01/26/19 Jennifer Arias MD [address] 209[address] Physician Internal Medicine 02/11/19 Andrez Pitts DO [address] [place], [place] 98768691 Gastroenterology 11/21/23 Kenya Garcia MD [address] [place] [address] General Surgery 09/15/24 Sidney Joya MD [address] [place], [place] 418051 Radiation Oncology 09/16/24 Fredi Jones MD [address] [facility] 110 [place] [address] Cardiology 09/16/24 Sarah Pearson PA-C [address] [place], [place] 479450 Rheumatology 09/16/24 Raul Hendrix LISW [address] [place] [address] Transport Assistant Hematology/Oncology 09/18/24 Josh Bennett DO [address] [place] [place], [place] 626941 Hematology/Oncology 09/25/24 Roxanne Bland RN [employer]ty 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 Teacher Oncology 09/25/24 Learning And Development Intern Relationship Specialty Start Date End Date Julio Arriaga, RAILROAD EMERGENCY SERVICES MANAGER.FOLDER TIER [address] [place] [phone] PCP - General Internal Medicine 10/18/22 Ismael Kidd (Rn)(Hist), RN [employer]ty 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 Teacher Hematology/Oncology 08/30/17 Quin Nolan DO [address] [place], [place] 280121 Hospice Physician Peripheral Vascular 01/26/19 Jennifer Arias MD [address] [facility] 209 [place], [place] 395893 Physician Internal Medicine 02/11/19 Andrez Pitts DO [address] [facility] 3[address] [place] [address] Gastroenterology 11/21/23 Kenya Garcia MD [address] [place] [address] General Surgery 09/15/24 Sidney Joya MD [address] [place] [address] Radiation Oncology 09/16/24 Fredi Jones MD 1261 [facility] 110 [place], [place] 282114 Cardiology 09/16/24 Sarah Pearson PA-C [address] [place], [place] 927310 Rheumatology 09/16/24 Raul Hendrix LISW 721 [place] [address] Transport Assistant Hematology/Oncology 09/18/24 Josh Bennett DO [address] [place] [address] Hematology/Oncology 09/25/24 Roxanne Bland RN [employer]ty 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 Teacher Oncology 09/25/24 Learning And Development Intern Relationship Specialty Start Date End Date Julio Arriaga, RAILROAD EMERGENCY SERVICES MANAGER.FOLDER TIER [address] [place] [address] PCP - General Internal Medicine 10/18/22 Ismael Kidd (Rn)(Hist), RN Specialty 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 Teacher Hematology/Oncology 08/30/17 Quin Nolan DO [address] [place], [place] 638711 Hospice Physician Peripheral Vascular 01/26/19 Jennifer Arias MD [address] [facility] 209 [place], [place] [address]93 Physician Internal Medicine 02/11/19 Andrez Pitts DO [address] [facility] 3[address] [place], [place] 440301 Gastroenterology 11/21/23 Kenya Garcia MD [address] [place] [address] General Surgery 09/15/24 Sidney Joya MD [address] [facility] [place] [address] Radiation Oncology 09/16/24 Fredi Jones MD 1261 [facility] 110 [place], [place] 129374 Cardiology 09/16/24 Sarah Pearson, PAMadayC [address] [place], [place] [address] Rheumatology 09/16/24 Raul Hendrix LISW [address] [place] [address] Transport Assistant Hematology/Oncology 09/18/24 Josh Bennett DO [address] [facility] [place] [address] Hematology/Oncology 09/25/24 Roxanne Bland, LÓPEZ Specialty 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 Teacher Oncology 09/25/24 Learning And Development Intern Relationship Specialty Start Date End Date Julio Arriaga, RAILROAD EMERGENCY SERVICES MANAGER.FOLDER TIER [address] [place] [address] PCP - General Internal Medicine 10/18/22 Ismael Kidd (Rn)(Hist), RN [employer]ty 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 Teacher Hematology/Oncology 08/30/17 Quin Nolan DO [address] [place], [place] [address] Hospice Physician Peripheral Vascular 01/26/19 Jennifer Arias MD 4125 [facility] 209 [place], [place] [address]113 Physician Internal Medicine 02/11/19 Andrez Pitts DO 1761 [facility] 3[facility] [place], [place] [address] Gastroenterology 11/21/23 Kenya Garcia MD [address] [place] [address] General Surgery 09/15/24 Sidney Joya MD [address] [place], [place] [address] Radiation Oncology 09/16/24 Fredi Jones MD 1261 [facility] 110 [place], [place] [address] Cardiology 09/16/24 Sarah Pearson PA-C 136[address] [place], [place] 234200 Rheumatology 09/16/24 Raul Hendrix LISW [address] [place] [address] Transport Assistant Hematology/Oncology 09/18/24 Josh Bennett DO [address] [place] [address] Hematology/Oncology 09/25/24 Doup, Roxanne, RN [employer]ty 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 Teacher Oncology 09/25/24 Learning And Development Intern Relationship Specialty Start Date End Date Julio Arriaga, RAILROAD EMERGENCY SERVICES MANAGER.FOLDER TIER [address] [place] [phone] PCP - General Internal Medicine 10/18/22 Ismael Kidd (Rn)(Hist), RN [employer]ty 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 Teacher Hematology/Oncology 08/30/17 Quin Nolan DO [address] [facility] [place] [place], [place] [address] Hospice Physician Peripheral Vascular 01/26/19 Jennifer Arias MD 4125 [facility] 209 [place], [place] [address]63 Physician Internal Medicine 02/11/19 Andrez Pitts DO 1761 [facility] 3B [place] [address] Gastroenterology 11/21/23 Kenya Garcai MD [address] [place], [place] [address] General Surgery 09/15/24 Sidney Joya MD [address] [place], [place] 2[address]81 Radiation Oncology 09/16/24 Fredi Jones MD 1261 [facility] 110 [place], [place] [address]134 Cardiology 09/16/24 Sarah Pearson PA-C [address] [place], [place] [address] Rheumatology 09/16/24 Raul Hendrix LISW [address] [place] [address] Transport Assistant Hematology/Oncology 09/18/24 Josh Bennett DO [address] [place] [address] Hematology/Oncology 09/25/24 Roxanne Bland, LÓPEZ Specialty 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 Teacher Oncology 09/25/24 Learning And Development Intern Relationship Specialty Start Date End Date Julio Arriaga, RAILROAD EMERGENCY SERVICES MANAGER.FOLDER TIER [address] [place] [address] PCP - General Internal Medicine 10/18/22 Ismael Kidd (Rn)(Hist), RN [employer]ty 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 Teacher Hematology/Oncology 08/30/17 Quin Nolan DO [address] [place], [place] [address] Hospice Physician Peripheral Vascular 01/26/19 Jennifer Arias MD [address] [place] [facility] 209 [place] [address] Physician Internal Medicine 02/11/19 Andrez Pitts DO [address] [facility] 3[address] [place] [address] Gastroenterology 11/21/23 Kenya Garcia MD [address] [place] [address] General Surgery 09/15/24 Sidney Joya MD [address] [place], [place] 612631 Radiation Oncology 09/16/24 Fredi Jones MD 1261 [facility] 110 [place] [address] Cardiology 09/16/24 Sarah Pearson PA-C [address] [place], [place] [address] Rheumatology 09/16/24 Raul Hendrix LISW [address] [place] [address] Transport Assistant Hematology/Oncology 09/18/24 Josh Bennett DO [address] [place] [address] Hematology/Oncology 09/25/24 Roxanne Bland, LÓPEZ Specialty 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 Teacher Oncology 09/25/24 Learning And Development Intern Relationship Specialty Start Date End Date Julio Arriaga, RAILROAD EMERGENCY SERVICES MANAGER.FOLDER TIER [address] [place] [phone] PCP - General Internal Medicine 10/18/22 Ismael Kidd (Rn)(Hist), RN [employer]ty 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 Teacher Hematology/Oncology 08/30/17 Quin Nolan DO [address] [place], [place] 8[address]71 Hospice Physician Peripheral Vascular 01/26/19 Jennifer Arias MD [address] [facility] 209 [place], [place] [address]23 Physician Internal Medicine 02/11/19 Andrez Pitts DO [address] [place], [place] [address] Gastroenterology 11/21/23 Kenya Garcia MD [address] [place] [address] General Surgery 09/15/24 Sidney Joya MD [address] [place] [address] Radiation Oncology 09/16/24 Fredi Jones MD 1261 [facility] 110 [place] [address] Cardiology 09/16/24 Sarah Pearson PA-C [address] [place], [place] 255300 Rheumatology 09/16/24 Raul Hendrix LISW 721 [place] [address] Transport Assistant Hematology/Oncology 09/18/24 Josh Bennett DO [address] [place] [address] Hematology/Oncology 09/25/24 Roxanne Bland RN [employer]ty 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 Teacher Oncology 09/25/24 Learning And Development Intern Relationship Specialty Start Date End Date Julio Arriaga, RAILROAD EMERGENCY SERVICES MANAGER.FOLDER TIER 1261 [place] [phone] PCP - General Internal Medicine 10/18/22 Ismael Kidd (Rn)(Hist), RN [employer]ty 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 Teacher Hematology/Oncology 08/30/17 Quin Nolan DO [address] [place] [place], [place] [address] Hospice Physician Peripheral Vascular 01/26/19 Jennifer Arias MD [address] [facility] 209 [place], [place] [id number] Physician Internal Medicine 02/11/19 Andrez Pitts DO [address] [facility] [address] [place], [place] [id number] Gastroenterology 11/21/23 Kenya Garcia MD [address] [place] [address] General Surgery 09/15/24 Sidney Joya MD [address] [place] [address] Radiation Oncology 09/16/24 Fredi Jones MD 1261 [facility] 110 [place] [address] Cardiology 09/16/24 Sarah Pearson PA-C [address] [place] [address] Rheumatology 09/16/24 Raul Hendrix LISW [address] [place] [address] Transport Assistant Hematology/Oncology 09/18/24 Josh Bennett DO [address] [place] [address] Hematology/Oncology 09/25/24 Roxanne Bland RN [employer]ty 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 Teacher Oncology 09/25/24 Learning And Development Intern Relationship Specialty Start Date End Date Julio Arriaga, RAILROAD EMERGENCY SERVICES MANAGER.FOLDER TIER 1261 [place] [phone] PCP - General Internal Medicine 10/18/22 Ismael Kidd (Rn)(Hist), RN [employer]ty 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 Teacher Hematology/Oncology 08/30/17 Quin Nolan DO [address] [place] [place], [place] 222871 Hospice Physician Peripheral Vascular 01/26/19 Jennifer Arias MD [address]125 [place] 209 [place], [place] [address]763 Physician Internal Medicine 02/11/19 Andrez Pitts DO [address] [facility] [address] [place], [place] [address] Gastroenterology 11/21/23 Kenya Garcia MD [address] [place] [address] General Surgery 09/15/24 Sidney Joya MD [address] [facility] [place], [place] 99[address] Radiation Oncology 09/16/24 Fredi Jones MD [address] [facility] 110 [place], [place] [address]74 Cardiology 09/16/24 Sarah Pearson PA-C [address] [place], [place] [id number] Rheumatology 09/16/24 Raul Hendrix LISW [address] [place] [address] Transport Assistant Hematology/Oncology 09/18/24 Josh Bennett DO [address] [place], [place] 370741 Hematology/Oncology 09/25/24 Roxanne Bland, LÓPEZ Specialty 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 Teacher Oncology 09/25/24 Team Status: Active Member Role Status Dates Julio Arriaga NP, CARBON PRINTER-C Primary Care Provider Active Team Status: Inactive Member Role Status Dates Julio Arriaga NP, CARBON PRINTER-C Primary Care Provider Active Start: August 27, 2024 End: August 27, 2024 Julio Arriaga NP, CARBON PRINTER-C Referring Provider Active Start: August 27, 2024 End: August 27, 2024 Dr. Andrez Pitts DO Attending Provider Active Start: August 27, 2024 End: August 27, 2024 Team Status: Inactive Member Role Status Dates Julio Arriaga NP, CARBON PRINTER-C Primary Care Provider Active Start: September 02, [...] Member Role Status Dates Julio Arriaga NP, CARBON PRINTER-C Primary Care Provider Active Start: September 02, 2024 Dr. Sonia Germain DO Emergency Provider Active Start: September 02, 2024 Dr. Kenya Garcia MD Attending Provider Active Start: September 02, 2024 Dr. Kenya Garcia MD Other Provider Active St art: September 02, 2024 Team Status: Active Member Role Status Dates Julio Arriaga NP, CARBON PRINTER-C Primary Care Provider Active Start: September 03, [...] Member Role Status Dates Julio Arriaga NP, CARBON PRINTER-C Primary Care Provider Active Start: September 15, 2024 End: September 15, 2024 Julio Arriaga NP, CARBON PRINTER-C Referring Provider Active Start: September 15, 2024 End: September 15, 2024 Dr. Kenya Garcia MD Attending Provider Active Start: September 15, 2024 End: September 15, 2024 Team Status: Inactive Member Role Status Dates Julio Arriaga NP, CARBON PRINTER-C Primary Care Provider Active Start: September 24, [...] Inactive Member Role Status Dates Julio Arriaga CARBON PRINTER, CARBON PRINTER-C Primary Care Provider Active Start: October 02, 2024 End: October 02, 2024 Dr. Josh Bennett DO Attending Provider Active St art: October 02, 2024 End: October 02, 2024 Dr. Josh Bennett DO Referring Provider Active St art: October 02, 2024 End: October 02, 2024 Team Status: Active Member Role Status Dates Julio Arriaga CARBON PRINTER, CARBON PRINTER-C Primary Care Provider Active Start: October 19, 2024 Dr. Josh Bennett DO Attending Provider Active St art: October 19, 2024 Dr. Josh Bennett DO Referring Provider Active St art: October 19, 2024 Team Status: Active Member Role Status Dates Julio Arriaga CARBON PRINTER, CARBON PRINTER-C Primary Care Provider Active Start: October 19, 2024 Dr. Lincoln Richards MD Attending Provider Active S tart: October 19, 2024 Team Status: Inactive Member Role Status Dates Julio Arriaga CARBON PRINTER, CARBON PRINTER-C Primary Care Provider Active Start: October 24, 2024 End: October 25, 2024 Dr. Rigoberto Dow DO Emergency Provider Active Start : October 24, 2024 End: October 25, 2024 Team Status: Inactive Member Role Status Dates Julio Arriaga CARBON PRINTER, CARBON PRINTER-C Primary Care Provider Active Start: October 19, 2024 End: October 19, 2024 Dr. Josh Bennett DO Attending Provider Active St art: October 19, 2024 End: October 19, 2024 Dr. Josh Bennett DO Referring Provider Active St art: October 19, 2024 End: October 19, 2024 Learning And Development Intern Relationship Specialty Start Date End Date Julio Arriaga, RAILROAD EMERGENCY SERVICES MANAGER.FOLDER TIER [address] [place] [address] PCP - General Internal Medicine 10/18/22 Ismael Kidd (Rn)(Hist), RN Specialty 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 Teacher Hematology/Oncology 08/30/17 Quin Nolan DO [address] [place], [place] [address] Hospice Physician Peripheral Vascular 01/26/19 Jennifer Arias MD 4125 [facility] 209 [place] [address] Physician Internal Medicine 02/11/19 Andrez Pitts DO 1761 [facility] 3B [place], [place] 120791 Gastroenterology 11/21/23 Kenya Garcia MD [address] [place] [address] General Surgery 09/15/24 Sidney Joya MD [address] [place], [place] 430[address] Radiation Oncology 09/16/24 Fredi Jones MD 1261 [facility] 110 [place], [place] [address] Cardiology 09/16/24 Sarah Pearson PA-C [address] [place], [place] [address] Rheumatology 09/16/24 Raul Hendrix LISW [address] [place] [address] Transport Assistant Hematology/Oncology 09/18/24 Josh Bennett DO [address] [place], [place] [address] Hematology/Oncology 09/25/24 Roxanne Bland RN [employer]ty 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 Teacher Oncology 09/25/24 Learning And Development Intern Relationship Specialty Start Date End Date Julio Arriaga, RAILROAD EMERGENCY SERVICES MANAGER.FOLDER TIER [address] [place] [phone] PCP - General Internal Medicine 10/18/22 Ismael Kidd (Rn)(Hist), RN [employer]ty 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 Teacher Hematology/Oncology 08/30/17 Quin Nolan DO [address] [place], [place] 994611 Hospice Physician Peripheral Vascular 01/26/19 Jennifer Arias MD [address] [place] [facility] 209 [place], [place] [address]303 Physician Internal Medicine 02/11/19 Andrez Pitts DO [address] [facility] 3B [place] [address] Gastroenterology 11/21/23 Kenya Garcia MD [address] [place] [address] General Surgery 09/15/24 Sidney Joya MD [address] [place] [address] Radiation Oncology 09/16/24 Fredi Jones MD 1261 [facility] 110 [place] [address] Cardiology 09/16/24 Sarah Pearson PA-C [address] [place], [place] [address] Rheumatology 09/16/24 Raul Hendrix LISW [address] [place] [address] Transport Assistant Hematology/Oncology 09/18/24 Josh Bennett DO [address] [place] [address] Hematology/Oncology 09/25/24 Roxanne Bland, RN [employer]ty 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 Teacher Oncology 09/25/24 Learning And Development Intern Relationship Specialty Start Date End Date Julio Arriaga, RAILROAD EMERGENCY SERVICES MANAGER.FOLDER TIER 1261 [place] [phone] PCP - General Internal Medicine 10/18/22 Ismael Kidd (Rn)(Hist), RN Specialty 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 Teacher Hematology/Oncology 08/30/17 Quin Nolan DO [address] [place] [address] Hospice Physician Peripheral Vascular 01/26/19 Jennifer Arias MD 4125 [facility] 209 [place] [address] Physician Internal Medicine 02/11/19 Andrez Pitts DO [address] [facility] 3[address] [place] [address] Gastroenterology 11/21/23 Kenya Garcia MD [address] [place] [address] General Surgery 09/15/24 Sidney Joya MD [address] [place] [address] Radiation Oncology 09/16/24 Fredi Jones MD 1261 [facility] 110 [place] [address] Cardiology 09/16/24 Sarah Pearson, PAMadayC [address] [place] [address] Rheumatology 09/16/24 Raul Hendrix LISW [address] [place] [address] Transport Assistant Hematology/Oncology 09/18/24 Josh Bennett DO [address] [place] [place], [place] [address]851 Hematology/Oncology 09/25/24 Roxanne Bland RN [employer]ty 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 Teacher Oncology 09/25/24 Learning And Development Intern Relationship Specialty Start Date End Date Julio Arriaga, RAILROAD EMERGENCY SERVICES MANAGER.FOLDER TIER [address] [place] [phone] PCP - General Internal Medicine 10/18/22 Ismael Kidd (Rn)(Hist), RN [employer]ty 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 Teacher Hematology/Oncology 08/30/17 Quin Nolan DO [address] [place] [place], [place] 213411 Hospice Physician Peripheral Vascular 01/26/19 Jennifer Arias MD [address] [place] [address] 7[address]153 Physician Internal Medicine 02/11/19 Andrez Pitts DO [address] [place] [address] Gastroenterology 11/21/23 Kenya Garcia MD [address] [place], [place] 050721 General Surgery 09/15/24 Sidney Joya MD [address] [place], [place] 1894[address] Radiation Oncology 09/16/24 Fredi Jones MD 1261 [facility] 110 [place] [address] Cardiology 09/16/24 Sarah Pearson PA-C [address] [place] [address] Rheumatology 09/16/24 Raul Hendrix LISW 721 [place] [address] Transport Assistant Hematology/Oncology 09/18/24 Josh Bennett DO [address] [place] [place], [place] 582281 Hematology/Oncology 09/25/24 Roxanne Bland RN [employer]ty 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 Teacher Oncology 09/25/24 Learning And Development Intern Relationship Specialty Start Date End Date Julio Arriaga, RAILROAD EMERGENCY SERVICES MANAGER.FOLDER TIER [address] [place] [address] PCP - General Internal Medicine 10/18/22 Ismael Kidd (Rn)(Hist), RN Specialty 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 Teacher Hematology/Oncology 08/30/17 Quin Nolan DO [address] [facility] [place], [place] 795231 Hospice Physician Peripheral Vascular 01/26/19 Jennifer Arias MD [address] [facility] 209 [place] [address] Physician Internal Medicine 02/11/19 Andrez Pitts DO [address] [facility] 3[address] [place] [address] Gastroenterology 11/21/23 Kenya Garcia MD [address] [place] [address] General Surgery 09/15/24 Sidney Joya MD [address] [facility] [place] [address] Radiation Oncology 09/16/24 Fredi Jones MD 1261 [facility] 110 [place], [place] [address] Cardiology 09/16/24 Sarah Pearson, PAMadayC 136[address] [place], [place] [id number] Rheumatology 09/16/24 Raul Hendrix LISW 721 [place] [address] Transport Assistant Hematology/Oncology 09/18/24 Josh Bennett DO [address] [facility] [place] [address] Hematology/Oncology 09/25/24 Roxanne Bland RN [employer]ty 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 Teacher Oncology 09/25/24 Learning And Development Intern Relationship Specialty Start Date End Date Julio Arriaga, RAILROAD EMERGENCY SERVICES MANAGER.FOLDER TIER 12[address] [place] [phone] PCP - General Internal Medicine 10/18/22 Ismael Kidd (Rn)(Hist), RN [employer]ty 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 Teacher Hematology/Oncology 08/30/17 Quin Nolan DO [address] [facility] [place] [address] Hospice Physician Peripheral Vascular 01/26/19 Jennifer Arias MD [address] [place] [facility] 209 [place], [place] [address]63503 Physician Internal Medicine 02/11/19 Andrez Pitts DO 1761 [facility] [address] [place], [place] 630771 Gastroenterology 11/21/23 Kenya Garcia MD [address] [place] [address] General Surgery 09/15/24 Sidney Joya MD [address] [place], [place] 345591 Radiation Oncology 09/16/24 Fredi Jones MD [address] [facility] 110 [place] [address] Cardiology 09/16/24 Sarah Pearson PAMadayC 1365 [place] [address] Rheumatology 09/16/24 Raul Hendrix LISW [address] [place] [address] Transport Assistant Hematology/Oncology 09/18/24 Josh Bennett DO [address] [place], [place] 362481 Hematology/Oncology 09/25/24 Roxanne Bland, RN [employer]ty 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 Teacher Oncology 09/25/24 Team Status: Active Member Role Status Dates Julio Arriaga CARBON PRINTER, CARBON PRINTER-C Primary Care Provider Active Start: October 19, 2024 Dr. Lincoln Richards MD Attending Provider Active S tart: October 19, 2024 Dr. Josh Bennett DO Referring Provider Active St art: October 19, 2024 Team Status: Inactive Member Role Status Dates Julio Arriaga CARBON PRINTER, CARBON PRINTER-C Primary Care Provider Active Start: October 24, 2024 End: October 25, 2024 Dr. Rigoberto Dow DO Attending Provider Active Start : October 24, 2024 End: October 25, 2024 Dr. Rigoberto Dow , DO Emergency Provider Active Start : October 24, 2024 End: October 25, 2024 Team Status: Inactive Member Role Status Dates Julio Arriaga CARBON PRINTER, CARBON PRINTER-C Primary Care Provider Active Start: October 30, 2024 End: October 30, 2024 Dr. Gaudencio Ambriz DO Emergency Provider Active Start: October 30, 2024 End: October 30, 2024 Learning And Development Intern Relationship Specialty Start Date End Date Julio Arriaga, RAILROAD EMERGENCY SERVICES MANAGER.FOLDER TIER [address] [place] [address] PCP - General Internal Medicine 10/18/22 Ismael Kidd (Rn)(Hist), RN [employer]ty 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 Teacher Hematology/Oncology 08/30/17 Quin Nolan DO [address] [place], [place] 346851 Hospice Physician Peripheral Vascular 01/26/19 Jennifer Arias MD [address] [place] [facility] 209 [place], [place] [address]793 Physician Internal Medicine 02/11/19 Andrez Pitts DO [address] [facility] 3B [place], [place] [address]991 Gastroenterology 11/21/23 Kenya Garcia MD [address] [place] [address] General Surgery 09/15/24 Sidney Joya MD [address] [place] [address] Radiation Oncology 09/16/24 Fredi Jones MD 1261 [facility] [address] [place], [place] [address]44944 Cardiology 09/16/24 Sarah Pearson PA-C [address] [place] [place], [place] 333530 Rheumatology 09/16/24 Raul Hendrix LISW 721 [place] [address] Transport Assistant Hematology/Oncology 09/18/24 Josh Bennett DO [address] [facility] [place], [place] 251161 Hematology/Oncology 09/25/24 Roxanne Bland, LÓPZE Specialty 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 Teacher Oncology 09/25/24 Learning And Development Intern Relationship Specialty Start Date End Date Julio Arriaga, RAILROAD EMERGENCY SERVICES MANAGER.FOLDER TIER [address] [place] [phone] PCP - General Internal Medicine 10/18/22 Ismael Kidd (Rn)(Hist), RN [employer]ty 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 Teacher Hematology/Oncology 08/30/17 Quin Nolan DO [address] [place], [place] 450711 Hospice Physician Peripheral Vascular 01/26/19 Jennifer Arias MD [address] [place] [address] [address] Physician Internal Medicine 02/11/19 Andrez Ptits DO [address] [place], [place] 462491 Gastroenterology 11/21/23 Kneya Garcia MD [address] [place] [address] General Surgery 09/15/24 Sidney Joya MD [address] [place] [address] Radiation Oncology 09/16/24 Fredi Jones MD 1261 [facility] 110 [place] [address] Cardiology 09/16/24 Sarah Pearson, PAMadayC [address] [place] [place], [place] 419870 Rheumatology 09/16/24 Raul Hendrix LISW 721 [place] [address] Transport Assistant Hematology/Oncology 09/18/24 Josh Bennett DO [address] [place] [address] Hematology/Oncology 09/25/24 Roxanne Bland RN [employer]ty 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 Teacher Oncology 09/25/24 Learning And Development Intern Relationship Specialty Start Date End Date Julio Arriaga, RAILROAD EMERGENCY SERVICES MANAGER.FOLDER TIER [address] [place] [phone] PCP - General Internal Medicine 10/18/22 Ismael Kidd (Rn)(Hist), RN [employer]ty 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 Teacher Hematology/Oncology 08/30/17 Quin Nolan DO [address] [place], [place] [id number] Hospice Physician Peripheral Vascular 01/26/19 Jennifer Arias MD [address] 209 [place], [place] 105083 Physician Internal Medicine 02/11/19 Andrez Pitts DO [address] [facility] 3[address] [place], [place] 391251 Gastroenterology 11/21/23 Kenya Garcia MD [address] [place], [place] 294901 General Surgery 09/15/24 Sidney Joya MD [address] [place] [address] Radiation Oncology 09/16/24 Fredi Jones MD [address] 6694[address] Cardiology 09/16/24 Sarah Pearson, PARowan 1365 [place] [address] Rheumatology 09/16/24 Raul Hendrix LISW 721 [place] [address] Transport Assistant Hematology/Oncology 09/18/24 Josh Bennett DO [address] [place] [address] Hematology/Oncology 09/25/24 Roxanne Bland RN [employer]ty 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 Teacher Oncology 09/25/24 Learning And Development Intern Relationship Specialty Start Date End Date Julio Arriaga, RAILROAD EMERGENCY SERVICES MANAGER.FOLDER TIER [address] [place] [phone] PCP - General Internal Medicine 10/18/22 Ismael Kidd (Rn)(Hist), RN [employer]ty 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 Teacher Hematology/Oncology 08/30/17 Quin Nolan DO [address] [place] [address] Hospice Physician Peripheral Vascular 01/26/19 Jennifer Arias MD [address] [place] [facility] 209 [place] [address] Physician Internal Medicine 02/11/19 Andrez Pitts DO [address] [facility] 3[address] [place] [address] Gastroenterology 11/21/23 Kenya Garcia MD [address] [place] [address] General Surgery 09/15/24 Sidney Joya MD [address] [place], [place] 0[address]791 Radiation Oncology 09/16/24 Fredi Jones MD 1261 [facility] 110 [place], [place] [id number] Cardiology 09/16/24 Sarah Pearson, PARowan 136[address] [place], [place] 743800 Rheumatology 09/16/24 Raul Hendrix LISW 721 [place] [address] Transport Assistant Hematology/Oncology 09/18/24 Josh Bennett DO [address] [place] [address] Hematology/Oncology 09/25/24 Roxanne Bland RN [employer]ty 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 Teacher Oncology 09/25/24 Learning And Development Intern Relationship Specialty Start Date End Date Julio Arriaga, RAILROAD EMERGENCY SERVICES MANAGER.FOLDER TIER [address] [place] [phone] PCP - General Internal Medicine 10/18/22 Ismael Kidd (Rn)(Hist), RN [employer]ty 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 Teacher Hematology/Oncology 08/30/17 Quin Nolan DO [address] [place], [place] 597831 Hospice Physician Peripheral Vascular 01/26/19 Jennifer Arias MD [address] [facility] [facility] [address] [place], [place] [address]863 Physician Internal Medicine 02/11/19 Andrez Pitts DO [address] [facility] [address] [place], [place] [address] Gastroenterology 11/21/23 Kenya Garcia MD [address] [place] [address] General Surgery 09/15/24 Sidney Joya MD [address] [place] [place], [place] [address] Radiation Oncology 09/16/24 Fredi Jones MD 1261 [facility] [address] [place], [place] [address]474 Cardiology 09/16/24 Sarah Pearson PA-Marga [address] [place], [place] 65[address]60 Rheumatology 09/16/24 Raul Hendrix LISW [address] [place] [address] Transport Assistant Hematology/Oncology 09/18/24 Josh Bennett DO [address] [place] [place], [place] [address] Hematology/Oncology 09/25/24 Roxanne Bland RN [employer]ty 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 Teacher Oncology 09/25/24 Learning And Development Intern Relationship Specialty Start Date End Date Corina, Julio D, RAILROAD EMERGENCY SERVICES MANAGER.FOLDER TIER [address] [place] [phone] PCP - General Internal Medicine 10/18/22 Ismael Kidd (Rn)(Hist), RN [employer]ty 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 Teacher Hematology/Oncology 08/30/17 Quin Nolan DO [address] [place] [address] Hospice Physician Peripheral Vascular 01/26/19 Jennifer Arias MD 4125 [facility] [address] [place], [place] [address]083 Physician Internal Medicine 02/11/19 Andrez Pitts DO [address] [facility] [address] [place] [address] Gastroenterology 11/21/23 Kenya Garcia MD [address] [place] [address] General Surgery 09/15/24 Sidney Joya MD [address] [address] Radiation Oncology 09/16/24 Fredi Jones MD 1261 [facility] 110 [place], [place] [address]354 Cardiology 09/16/24 Sarah Pearson PA-C [address] [place], [place] 00[address]10 Rheumatology 09/16/24 Raul Hendrix LISW [address] [place] [address] Transport Assistant Hematology/Oncology 09/18/24 Josh Bennett DO [address] [place] [address] Hematology/Oncology 09/25/24 Roxanne Bland, LÓPEZ [employer]ty 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 Teacher Oncology 09/25/24 Learning And Development Intern Relationship Specialty Start Date End Date Julio Arriaga, RAILROAD EMERGENCY SERVICES MANAGER.FOLDER TIER [address] [place] [phone] PCP - General Internal Medicine 10/18/22 Ismael Kidd (Rn)(Hist), RN [employer]ty 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 Teacher Hematology/Oncology 08/30/17 Quin Nolan DO [address] [place] [place], [place] [address] Hospice Physician Peripheral Vascular 01/26/19 Jennifer Arias MD [address] [place] [facility] [address] [place], [place] 13[address]63 Physician Internal Medicine 02/11/19 Andrez Pitts DO [address] [facility] [address] [place] [address] Gastroenterology 11/21/23 Kenya Garcia MD [address] [place] [address] General Surgery 09/15/24 Sidney Joya MD [address] [place] [address] Radiation Oncology 09/16/24 Fredi Jones MD [address] [place] [address] [facility] [address] [place] [address] Cardiology 09/16/24 Sarah Pearson PA-C [address] [place] [address] Rheumatology 09/16/24 Raul Hendrix LISW [address] [place] [address] Transport Assistant Hematology/Oncology 09/18/24 Josh Bennett DO [address] [place] [place], [place] [address] Hematology/Oncology 09/25/24 Roxanne Bland RN [employer]ty 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 Teacher Oncology 09/25/24 Learning And Development Intern Relationship Specialty Start Date End Date Julio Arriaga, RAILROAD EMERGENCY SERVICES MANAGER.FOLDER TIER [address] [place] [phone] PCP - General Internal Medicine 10/18/22 Ismael Kidd (Rn)(Hist), RN [employer]ty 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 Teacher Hematology/Oncology 08/30/17 Quin Nolan DO [address] [place], [place] [id number] Hospice Physician Peripheral Vascular 01/26/19 Jennifer Arias MD [address] [facility] [address] [place], [place] 707883 Physician Internal Medicine 02/11/19 Andrez iPtts DO [address] [place], [place] 288541 Gastroenterology 11/21/23 Kenya Garcia MD [address] [place] [address] General Surgery 09/15/24 Sidney Joya MD [address] [address] Radiation Oncology 09/16/24 Fredi Jones MD 1261 [facility] 110 [place], [place] 107054 Cardiology 09/16/24 Sarah Pearson, LIZZIE [address] [place] [place], [place] 84[address]40 Rheumatology 09/16/24 Raul Hendrix LISW [address] [place] [address] Transport Assistant Hematology/Oncology 09/18/24 Josh Bennett DO [address] [place], [place] 47[address]01 Hematology/Oncology 09/25/24 Roxanne Bland RN [employer]ty 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 Teacher Oncology 09/25/24 Learning And Development Intern Relationship Specialty Start Date End Date Julio Arriaga, RAILROAD EMERGENCY SERVICES MANAGER.FOLDER TIER [address] [place] [phone] PCP - General Internal Medicine 10/18/22 Ismael Kidd (Rn)(Hist), RN [employer]ty 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 Teacher Hematology/Oncology 08/30/17 Quin Nolan DO [address] [facility] [place] [address] Hospice Physician Peripheral Vascular 01/26/19 Jennifer Arias MD [address] [place] [facility] [address] [place], [place] [address]43 Physician Internal Medicine 02/11/19 Andrez Pitts DO [address] [place], [place] [id number] Gastroenterology 11/21/23 Kenya Garcia MD [address] [place] [address] General Surgery 09/15/24 Sidney Joya MD [address] [place] [address] Radiation Oncology 09/16/24 Fredi Jones MD 1261 [facility] 110 [place], [place] 116194 Cardiology 09/16/24 Sarah Pearson, PAMadayC [address] [place], [place] 600140 Rheumatology 09/16/24 Raul Hendrix LISW 721 [place] [address] Transport Assistant Hematology/Oncology 09/18/24 Josh Bennett DO [address] [place], [place] 36[address]11 Hematology/Oncology 09/25/24 Roxanne Bland RN [employer]ty 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 Teacher Oncology 09/25/24 Learning And Development Intern Relationship Specialty Start Date End Date Julio Arriaga, RAILROAD EMERGENCY SERVICES MANAGER.FOLDER TIER [address] [place] [phone] PCP - General Internal Medicine 10/18/22 Ismael Kidd (Rn)(Hist), RN [employer]ty 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 Teacher Hematology/Oncology 08/30/17 Quin Nolan DO [address] [place] [place], [place] [address] Hospice Physician Peripheral Vascular 01/26/19 Jennifer Arias MD [address] [facility] [address] [place], [place] [address]23 Physician Internal Medicine 02/11/19 Andrez Pitts DO [address] [address] Gastroenterology 11/21/23 Kenya Garcia MD [address] [place] [address] General Surgery 09/15/24 Sidney Joya MD [address] [place], [place] [address] Radiation Oncology 09/16/24 Fredi Jones MD [address] [id number] Cardiology 09/16/24 Sarah Pearson, LIZZIE [address] [place], [place] [address] Rheumatology 09/16/24 Raul Hendrix LISW 721 [place] [address] Transport Assistant Hematology/Oncology 09/18/24 Josh Bennett DO [address] [place], [place] [address]071 Hematology/Oncology 09/25/24 Roxanne Bland RN [employer]ty 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 Teacher Oncology 09/25/24 Learning And Development Intern Relationship Specialty Start Date End Date Julio Arrigaa, RAILROAD EMERGENCY SERVICES MANAGER.FOLDER TIER [address] [place] [phone] PCP - General Internal Medicine 10/18/22 Ismael Kidd (Rn)(Hist), RN [employer]ty 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 Teacher Hematology/Oncology 08/30/17 Quin Nolan DO [address] [place], [place] 8[address] Hospice Physician Peripheral Vascular 01/26/19 Jennifer Arias MD [address] [facility] 209 [place] [address] Physician Internal Medicine 02/11/19 Andrez Pitts DO [address] [facility] [address] [place], [place] [address] Gastroenterology 11/21/23 Kenya Garcia MD [address] [place] [address] General Surgery 09/15/24 Sidney Joya MD [address] [place], [place] 24[address] Radiation Oncology 09/16/24 Fredi Jones MD 1261 [facility] 110 [place], [place] 272484 Cardiology 09/16/24 Sarah Pearson, LIZZIE [address] [place], [place] 6[address]30 Rheumatology 09/16/24 Raul Hendrix LISW [address] [place] [address] Transport Assistant Hematology/Oncology 09/18/24 Josh Bennett DO [address] [place], [place] [address] Hematology/Oncology 09/25/24 Roxanne Bland RN [employer]ty 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 Teacher Oncology 09/25/24 Learning And Development Intern Relationship Specialty Start Date End Date Julio Arriaga, RAILROAD EMERGENCY SERVICES MANAGER.FOLDER TIER [address] [place] [address] PCP - General Internal Medicine 10/18/22 Ismael Kidd (Rn)(Hist), RN [employer]ty 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 Teacher Hematology/Oncology 08/30/17 Quin Nolan DO [address] [place] [address] Hospice Physician Peripheral Vascular 01/26/19 Jennifer Arias MD [address] [place] [facility] [address] [place], [place] [address]703 Physician Internal Medicine 02/11/19 Andrez Pitts DO [address] [facility] [address] [place] [address] Gastroenterology 11/21/23 Kenya Garcia MD [address] [facility] [place] [address] General Surgery 09/15/24 Sidney Joya MD [address] [place] [address] Radiation Oncology 09/16/24 Fredi Jones MD 1261 [facility] 110 [place] [address] Cardiology 09/16/24 Sarah Pearson PA-C [address] [place], [place] [address] Rheumatology 09/16/24 aRul Hendrix LISW [address] [place] [address] Transport Assistant Hematology/Oncology 09/18/24 Josh Bennett DO [address] [place] [address] Hematology/Oncology 09/25/24 Roxanne Bland, RN Specialty 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 Teacher Oncology 09/25/24 Learning And Development Intern Relationship Specialty Start Date End Date Julio Arriaga, RAILROAD EMERGENCY SERVICES MANAGER.FOLDER TIER [address] [place] [phone] PCP - General Internal Medicine 10/18/22 Ismael Kidd (Rn)(Hist), RN [employer]ty 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 Teacher Hematology/Oncology 08/30/17 Quin Nolan DO [address] [place] [address] Hospice Physician Peripheral Vascular 01/26/19 Jennifer Arias MD 4125 [facility] 209 [place], [place] [address]233 Physician Internal Medicine 02/11/19 Andrez Pitts DO 1761 [facility] RUBA [facility] [address] [place] [address] Gastroenterology 11/21/23 Kenya Garcia MD [address] [facility] [place] [address] General Surgery 09/15/24 Sidney Joya MD [address] [place] [address] Radiation Oncology 09/16/24 Fredi Jones MD 1261 [facility] 110 [place] [address] Cardiology 09/16/24 Sarah Pearson, PA-C [address] [place] [address] Rheumatology 09/16/24 Raul Hendrix LISW [address] [place] [address] Transport Assistant Hematology/Oncology 09/18/24 Josh Bennett DO [address] [place], [place] [address] Hematology/Oncology 09/25/24 Roxanne Bland RN [employer]ty 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 Teacher Oncology 09/25/24 Learning And Development Intern Relationship Specialty Start Date End Date Julio Arriaga, RAILROAD EMERGENCY SERVICES MANAGER.FOLDER TIER [address] [place] [phone] PCP - General Internal Medicine 10/18/22 Ismael Kidd (Rn)(Hist), RN [employer]ty 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 Teacher Hematology/Oncology 08/30/17 Quin Nolan DO [address] [place], [place] [address] Hospice Physician Peripheral Vascular 01/26/19 Jennifer Arias MD [address] [address] Physician Internal Medicine 02/11/19 Andrez Pitts DO [address] [place] [address] Gastroenterology 11/21/23 Kenya Garcia MD [address] [place] [address] General Surgery 09/15/24 Sidney Joya MD [address] [place] [place], [place] [address] Radiation Oncology 09/16/24 Fredi Jones MD 1261 [facility] 110 [place] [address] Cardiology 09/16/24 Sarah Pearson PA-C [address] [place] [address] Rheumatology 09/16/24 Raul Hendrix LISW 721 [place] [address] Transport Assistant Hematology/Oncology 09/18/24 Josh Bennett DO [address] [place], [place] [address]161 Hematology/Oncology 09/25/24 Roxanne Bland RN [employer]ty 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 Teacher Oncology 09/25/24 Learning And Development Intern Relationship Specialty Start Date End Date Julio Arriaga, RAILROAD EMERGENCY SERVICES MANAGER.FOLDER TIER [address] [place] [phone] PCP - General Internal Medicine 10/18/22 Ismael Kidd (Rn)(Hist), RN [employer]ty 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 Teacher Hematology/Oncology 08/30/17 Quin Nolan DO [address] [facility] [place], [place] [address] Hospice Physician Peripheral Vascular 01/26/19 Jennifer Arias MD [address] [facility] 209 [place] [address] Physician Internal Medicine 02/11/19 Andrez Pitts DO [address] [facility] [address] [place] [address] Gastroenterology 11/21/23 Kenya Garcia MD [address] [place] [address] General Surgery 09/15/24 Sidney Joya MD [address] [address] Radiation Oncology 09/16/24 Fredi Jones MD [address] [address] Cardiology 09/16/24 Sarah Pearson PAMadayC 136[address] [place], [place] [address]800 Rheumatology 09/16/24 Raul Hendrix LISW 721 [place] [address] Transport Assistant Hematology/Oncology 09/18/24 Josh Benntet DO [address] [place] [address] Hematology/Oncology 09/25/24 Roxanne Bland, LÓPEZ [employer]ty 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 Teacher Oncology 09/25/24 Team Status: Inactive Member Role Status Dates Julio Arriaga NP, CARBON PRINTER-C Primary Care Provider Active Start: October 30, [...] End: December 27, 2024 Julio Arriaga NP, CARBON PRINTER-C Primary Care Provider Active Start: December 27, 2024 End: December 27, 2024 Learning And Development Intern Relationship Specialty Start Date End Date Julio Arriaga, RAILROAD EMERGENCY SERVICES MANAGER.FOLDER TIER [address] [place] [phone] PCP - General Internal Medicine 10/18/22 Ismael Kidd (Rn)(Hist), RN [employer]ty 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 Teacher Hematology/Oncology 08/30/17 uQin Nolan DO [address] [place] [address] Hospice Physician Peripheral Vascular 01/26/19 Jennifer Arias MD [address] [facility] 209 [place], [place] 476013 Physician Internal Medicine 02/11/19 Andrez Pitts DO [address] [facility] [address] [place], [place] [address]441 Gastroenterology 11/21/23 Kenya Garcia MD [address] [place] [address] General Surgery 09/15/24 Sidney Joya MD [address] [place] [address] Radiation Oncology 09/16/24 Fredi Jones MD 1261 [facility] 110 [place], [place] [address] Cardiology 09/16/24 Sarah Pearson PA-C [address] [place] [address] Rheumatology 09/16/24 Raul Hendrix LISW [address] [place] [address] Transport Assistant Hematology/Oncology 09/18/24 Josh Bennett DO [address] [place], [place] 6[address]161 Hematology/Oncology 09/25/24 Roxanne Bland RN [employer]ty 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 Teacher Oncology 09/25/24 Learning And Development Intern Relationship Specialty Start Date End Date Julio Arriaga, RAILROAD EMERGENCY SERVICES MANAGER.FOLDER TIER [address] [place] [address] PCP - General Internal Medicine 10/18/22 Ismael Kidd (Rn)(Hist), RN [employer]ty 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 Teacher Hematology/Oncology 08/30/17 Quin Nolan DO [address] [place], [place] [address]31 Hospice Physician Peripheral Vascular 01/26/19 Jennifer Arias MD [address] [facility] [address] [place], [place] [address] Physician Internal Medicine 02/11/19 Andrez Pitts DO 1761 [facility] 3B [place] [address] Gastroenterology 11/21/23 Kenya Garcia MD [address] [facility] [place] [address] General Surgery 09/15/24 Sidney Joya MD [address] [place] [address] Radiation Oncology 09/16/24 Fredi Jones MD 1261 [facility] 110 [place], [place] [address]704 Cardiology 09/16/24 Sarah Pearson PA-C [address] [place] [address] Rheumatology 09/16/24 Raul Hendrix LISW 721 [place] [address] Transport Assistant Hematology/Oncology 09/18/24 Josh Bennett DO [address] [place] [address] Hematology/Oncology 09/25/24 Roxanne Bland RN [employer]ty 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 Teacher Oncology 09/25/24 Team Status: Inactive Member Role Status Dates Woo Thapa MD Attending Provider Active Star t: December 27, 2024 End: December 27, 2024 Woo Thapa MD Emergency Provider Active Star t: December 27, 2024 End: December 27, 2024 Julio Arriaga NP, CARBON PRINTER-C Primary Care Provider Active Start: December 27, 2024 End: December 27, 2024 Team Status: Inactive Member Role Status Dates Michelle Baker NP-C Attending Provider Active Start: January 14, 2025 End: January 14, 2025 Julio Arriaga NP, CARBON PRINTER-C Primary Care Provider Active Start: January 14, 2025 End: January 14, 2025 Julio Arriaga NP, [employer]BON PRINTER-C Referring Provider Active Start: January 14, 2025 End: January 14, 2025 Learning And Development Intern Relationship Specialty Start Date End Date Julio Arriaga, RAILROAD EMERGENCY SERVICES MANAGER.FOLDER TIER [address] [place] [address] PCP - General Internal Medicine 10/18/22 Ismael Kidd (Rn)(Hist), RN [employer]ty 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 Teacher Hematology/Oncology 08/30/17 Quin Nolan DO [address] [place] [place], [place] 411041 Hospice Physician Peripheral Vascular 01/26/19 Jennifer Arias MD [address] [address] Physician Internal Medicine 02/11/19 Andrez Pitts DO [address] [facility] [address] [place] [address] Gastroenterology 11/21/23 Kenya Garcia MD [address] [place] [address] General Surgery 09/15/24 Sidney Joya MD [address] [place] [address] Radiation Oncology 09/16/24 Fredi Jones MD 1261 [facility] 110 [place], [place] 510384 Cardiology 09/16/24 Sarah Pearson PA-C [address] [place], [place] 839370 Rheumatology 09/16/24 Raul Hendrix LISW 721 [place] [address] Transport Assistant Hematology/Oncology 09/18/24 Josh Bennett DO [address] [address] Hematology/Oncology 09/25/24 Roxanne Bland RN [employer]ty 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 Teacher Oncology 09/25/24 Learning And Development Intern Relationship Specialty Start Date End Date Julio Arriaga, RAILROAD EMERGENCY SERVICES MANAGER.FOLDER TIER [address] [place] [phone] PCP - General Internal Medicine 10/18/22 Ismael Kidd (Rn)(Hist), RN [employer]ty 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 Teacher Hematology/Oncology 08/30/17 Quin Nolan DO [address] [place], [place] [address] Hospice Physician Peripheral Vascular 01/26/19 Jennifer Arias MD [address] [facility] 209 [place], [place] 467083 Physician Internal Medicine 02/11/19 Andrez Pitts DO 1761 [facility] [place], [place] [address] Gastroenterology 11/21/23 Kenya Garcia MD [address] [place] [address] General Surgery 09/15/24 Sidney Joya MD [address] [place] [address] Radiation Oncology 09/16/24 Fredi Jones MD 1261 [facility] 110 [place], [place] [address] Cardiology 09/16/24 Sarah Pearson PA-C [address] [place], [place] 391790 Rheumatology 09/16/24 Raul Hendrix LISW [address] [place] [address] Transport Assistant Hematology/Oncology 09/18/24 Josh Bennett DO [address] [address] Hematology/Oncology 09/25/24 Roxanne Bland, LÓPEZ Specialty 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 Teacher Oncology 09/25/24 Team Status: Active Member Role/Relationship Status Dates Julio Arriaga NP, CARBON PRINTER-C Primary Care Provider Active Team Status: Inactive Member Role/Relationship Status Dates Julio Arriaga NP, CARBON PRINTER-C Primary Care Provider Active Start: October 19, 2024 End: October 19, 2024 Dr. Josh Bennett DO Attending Provider Active St art: October 19, 2024 End: October 19, 2024 Dr. Josh Bennett , Referring Provider Active St art: October 19, 2024 End: October 19, 2024 Team Status: Active Member Role/Relationship Status Dates Julio Arriaga CARBON PRINTER, CARBON PRINTER-C Primary Care Provider Active Start: October 19, 2024 Dr. Lincoln Richards MD Attending Provider Active S tart: October 19, 2024 Dr. Josh Bennett , Referring Provider Active St art: October 19, 2024 Team Status: Inactive Member Role/Relationship Status Dates Julio Arriaga NP, CARBON PRINTER-C Primary Care Provider Active Start: October 24, 2024 End: October 25, 2024 Dr. Rigoberto Dow DO Attending Provider Active Start : October 24, 2024 End: October 25, 2024 Dr. Rigoberto Dow DO Emergency Provider Active Start : October 24, 2024 End: October 25, 2024 Team Status: Inactive Member Role/Relationship Status Dates Julio Arriaga NP, CARBON PRINTER-C Primary Care Provider Active Start: October 30, [...] End: December 27, 2024 Julio Arriaga NP, CARBON PRINTER-C Primary Care Provider Active Start: December 27, 2024 End: December 27, 2024 Team Status: Inactive Member Role/Relationship Status Dates Michelle Baker NP-C Attending Provider Active Start: January 14, 2025 End: January 14, 2025 Julio Arriaga CARBON PRINTER, CARBON PRINTER-C Primary Care Provider Active Start: January 14, 2025 End: January 14, 2025 Julio Arriaga CARBON PRINTER, CARBON PRINTER-C Referring Provider Active Start: January 14, 2025 End: January 14, 2025 Team Status: Inactive Member Role/Relationship Status Dates Julio Corina CARBON PRINTER, CARBON PRINTER-C Primary Care Provider Active Start: February 02, 2025 End: February 02, 2025 Julio Arriaga CARBON PRINTER, CARBON PRINTER-C Referring Provider Active Start: February 02, 2025 End: February 02, 2025 Michelle Baker NP-Marga Attending Provider Active Start: February 02, 2025 End: February 02, 2025 Team Status: Inactive Member Role/Relationship Status Dates Julio Arriaga CARBON PRINTER, CARBON PRINTER-C Primary Care Provider Active Start: February 09, 2025 End: February 09, 2025 Julio Arriaga NP, CARBON PRINTER-C Referring Provider Active Start: February 09, 2025 End: February 09, 2025 Dr. Kenya Garcia MD Attending Provider Active Start: February 09, 2025 End: February 09, 2025 Learning And Development Intern Relationship Specialty Start Date End Date Julio Arriaga, RAILROAD EMERGENCY SERVICES MANAGER.FOLDER TIER [address] [place] [address] PCP - General Internal Medicine 10/18/22 Ismael Kidd (Rn)(Hist), RN Specialty 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 Teacher Hematology/Oncology 08/30/17 Quin Nolan DO [address] [place], [place] [address] Hospice Physician Peripheral Vascular 01/26/19 Jennifer Arias MD [address] [address] Physician Internal Medicine 02/11/19 Andrez Pitts DO [address] [place] [id number] Gastroenterology 11/21/23 Kenya Garcia MD [address] [place] [address] General Surgery 09/15/24 Sidney Joya MD [address] [place] [address] Radiation Oncology 09/16/24 Fredi Jones MD [address] [facility] 110 [place] [address] Cardiology 09/16/24 Sarah Pearson PA-C [address] [place] [address] Rheumatology 09/16/24 Raul Hendrix LISW [address] [place] [address] Transport Assistant Hematology/Oncology 09/18/24 Josh Bennett DO [address] [place], [place] [address] Hematology/Oncology 09/25/24 Roxanne Bland RN Specialty 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 Teacher Oncology 09/25/24 Team Status: Inactive Member Role/Relationship Status Dates Julio Arriaga NP, [employer] PRINTER-C Primary Care Provider Active Start: October 30, [...] End: December 27, 2024 Julio Arriaga NP, [employer] PRINTER-C Primary Care Provider Active Start: December 27, 2024 End: December 27, 2024 Team Status: Inactive Member Role/Relationship Status Dates Michelle Baker NP-C Attending Provider Active Start: January 14, 2025 End: January 14, 2025 Julio Arriaga NP, CARBON PRINTER-C Primary Care Provider Active Start: January 14, 2025 End: January 14, 2025 Julio Arriaga NP, CARBON PRINTER-C Referring Provider Active Start: January 14, 2025 End: January 14, 2025 Team Status: Inactive Member Role/Relationship Status Dates Julio Arriaga NP, [employer]BON PRINTER-C Primary Care Provider Active Start: January 26, 2025 Dr. Sabina Scott MD Attending Provider Active Start: January 26, 2025 Team Status: Inactive Member Role/Relationship Status Dates Julio Arriaga CARBON PRINTER, CARBON PRINTER-C Primary Care Provider Active Start: February 02, 2025 End: February 02, 2025 Julio Arriaga CARBON PRINTER, CARBON PRINTER-C Referring Provider Active Start: February 02, 2025 End: February 02, 2025 Michelle Baker NP-C Attending Provider Active Start: February 02, 2025 End: February 02, 2025 Team Status: Inactive Member Role/Relationship Status Dates Julio Arriaga CAR[employer]ON PRINTER, [employer]ON PRINTER-C Primary Care Provider Active Start: February 09, 2025 End: February 09, 2025 Julio Arriaga [employer]BON PRINTER, [employer]ON PRINTER-C Referring Provider Active Start: February 09, 2025 End: February 09, 2025 Dr. Kenya Garcia MD Attending Provider Active Start: February 09, 2025 End: February 09, 2025 Team Status: Inactive Member Role/Relationship Status Dates Julio Arriaga CARBON PRINTER, [employer]ON PRINTER-C Primary Care Provider Active Start: February 27, [...] 2024 End: December 27, 2024 Julio Arriaga CARBON PRINTER, [employer]BON PRINTER-C Primary Care Provider Active Start: December 27, 2024 End: December 27, 2024 Team Status: Inactive Member Role/Relationship Status Dates Michelle Baker NP-C Attending Provider Active Start: January 14, 2025 End: January 14, 2025 Julio Arriaga CARBON PRINTER, [employer]BON PRINTER-C Primary Care Provider Active Start: January 14, 2025 End: January 14, 2025 Julio Arriaga CARBON PRINTER, [employer]ON PRINTER-C Referring Provider Active Start: January 14, 2025 End: January 14, 2025 Team Status: Inactive Member Role/Relationship Status Dates Julio Arriaga CARBON PRINTER, [employer]ON PRINTER-C Primary Care Provider Active Start: January 26, 2025 Dr. Sabina Scott MD Attending Provider Active Start: January 26, 2025 Team Status: Inactive Member Role/Relationship Status Dates Julio Arriaga [employer]BON PRINTER, [employer]ON PRINTER-C Primary Care Provider Active Start: February 02, 2025 End: February 02, 2025 Julio Arriaga CARBON PRINTER, [employer]ON PRINTER-C Referring Provider Active Start: February 02, 2025 End: February 02, 2025 Michelle Baker NP-C Attending Provider Active Start: February 02, 2025 End: February 02, 2025 Team Status: Inactive Member Role/Relationship Status Dates Julio Arriaga CARBON PRINTER, CAR[employer]ON PRINTER-C Primary Care Provider Active Start: February 09, 2025 End: February 09, 2025 Julio Arriaga CARBON PRINTER, [employer]BON PRINTER-C Referring Provider Active Start: February 09, 2025 End: February 09, 2025 Dr. Kenya Garcia MD Attending Provider Active Start: February 09, 2025 End: February 09, 2025 Team Status: Inactive Member Role/Relationship Status Dates Julio Arriaga CARBON PRINTER, CAR[employer]ON PRINTER-C Primary Care Provider Active Start: February 27, 2025 End: February 27, 2025 Dr. Pawel Cason MD Emergency Provider Active Sta rt: February 27, 2025 End: February 27, 2025 Team Status: Inactive Member Role/Relationship Status Dates Julio Arriaga CARBON PRINTER, CARBON PRINTER-C Primary Care Provider Active Start: March 02, 2025 End: March 02, 2025 Dr. Kenya Garcia MD Attending Provider Active Start: March 02, 2025 End: March 02, 2025 Dr. Kenya Garcia MD Referring Provider Active Start: March 02, 2025 End: March 02, 2025 Team Status: Active Member Role/Relationship Status Dates Julio Arriaga CARBON PRINTER, [employer]ON PRINTER-C Primary Care Provider Active Start: March 02, 2025 Dr. Kenya Garcia MD Attending Provider Active Start: March 02, 2025 Dr. Kenya Garcia MD Referring Provider Active Start: March 02, 2025 Dr. Kenya Garcia MD Other Provider Active St art: March 02, 2025 Team Status: Inactive Member Role/Relationship Status Dates Julio Arriaga CARBON PRINTER, [employer]ON PRINTER-C Primary Care Provider Active Start: February 27, 2025 End: February 27, 2025 Dr. Pawel Cason MD Attending Provider Active Sta rt: February 27, 2025 End: February 27, 2025 Dr. Pawel Cason MD Emergency Provider Active Sta rt: February 27, 2025 End: February 27, 2025 Team Status: Inactive Member Role/Relationship Status Dates Julio Arriaga NP, [employer]BON PRINTER-C Primary Care Provider Active Start: March 16, 2025 End: March 16, 2025 Julio Arriaga NP, CARBON PRINTER-C Referring Provider Active Start: March 16, 2025 End: March 16, 2025 [facility] Attending Provider Active Start: March 16, 2025 End: March 16, 2025 Learning And Development Intern Relationship Specialty Start Date End Date Julio Arriaga, RAILROAD EMERGENCY SERVICES MANAGER.[employer] [address] [place] [address] PCP - General Internal Medicine 10/18/22 Ismael Kidd (Rn)(Hist), RN Specialty High 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 Teacher Hematology/Oncology 08/30/17 Quin Nolan DO [address] [place], [place] [address] Hospice Physician Peripheral Vascular 01/26/19 Jennifer Arias MD [address] [address] Physician Internal Medicine 02/11/19 Andrez Pitts DO [address] [address] Gastroenterology 11/21/23 Kenya Garcia MD [address] [place] [address] General Surgery 09/15/24 Sidney Joya MD [address] [place], [place] [id number] Radiation Oncology 09/16/24 Fredi Jones MD [address] [facility] [address] [place] [address] Cardiology 09/16/24 Sarah Pearson PA-C [address] [place], [place] [address] Rheumatology 09/16/24 Raul Hendrix LISW [address] [place] [address] Transport Assistant Hematology/Oncology 09/18/24 Josh Bennett DO [address] [place] [address] Hematology/Oncology 09/25/24 Roxanne Bland RN Specialty 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 Teacher Oncology 09/25/24 Learning And Development Intern Relationship Specialty Start Date End Date Julio Arriaga, RAILROAD EMERGENCY SERVICES MANAGER.[employer] [address] [place] [id number] PCP - General Internal Medicine 10/18/22 Ismael Kidd (Rn)(Hist), RN Specialty 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 Teacher Hematology/Oncology 08/30/17 Quin Nolan DO [address] [place], [place] [address] Hospice Physician Peripheral Vascular 01/26/19 Jennifer Arias MD [address] [facility] [address] [place], [place] [address] Physician Internal Medicine 02/11/19 Andrez Pitts DO [address] [place], [place] [address] Gastroenterology 11/21/23 Kenya Garcia MD [address] [place] [address] General Surgery 09/15/24 Sidney Joya MD [address] [place] [address] Radiation Oncology 09/16/24 Fredi Jones MD [address] [facility] [address] [place] [address] Cardiology 09/16/24 Sarah Pearson PA-C [address] [place] [address] Rheumatology 09/16/24 Raul Hendrix LISW [address] [place] [address] Transport Assistant Hematology/Oncology 09/18/24 Josh Bennett DO [address] [place] [address] Hematology/Oncology 09/25/24 Roxanne Bland, LÓPEZ Specialty High 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 Teacher Oncology 09/25/24 Care Team (unrecognized sect ion and content) Care Team Personnel Name: SELENE PIERRE MD Member Role: Primary Care Physician Address: Address: [address] [place] [address]- Care Team Related Persons Name: TAYLOR HILL Name: MAGDA BORJAS Address: [facility] Care Team Personnel Name: SELENE PIERRE MD Member Role: Primary Care Physician Address: Address: [address] [place] [address] Care Team Related Persons Name: TAYLOR HILL Name: MAGAD BORJAS Address: [facility] Goals (unrecognized section and content) Goals [...] BE BASED ON THE PRIMARY CLINICAL RECORDS. [employer] [facility]. provides no warranty or guarantee of the accuracy or completeness of information in this document.
--- OUTSIDE RECORDS SUMMARY | 2025-03-27 19:29 | XMS RPT_ITS | CCD ---
Author Organization [facility] Care Team Providers Care Splitter Machine Name Role Phone IGNACIO NEWMAN, DR SELENE Gresham Primary Care Physician Selene Pierre MD Primary Care Provider Marti ROJAS, Ismael uGy (Rn)(Hist) Unavailable Unavailable Quin Nolan DO Unavailable [...] [phone] Dr. Usama Sarmiento Attending Provider Corina GEOLOGY ASSOCIATE, GEOLOGY ASSOCIATE-C Julio Primary Care Provider Corina GEOLOGY ASSOCIATE, GEOLOGY ASSOCIATE-C Julio Referring Provider Eduardo BENOIT PA Kenya Mazariegos Attending Provider Briana GEOLOGY ASSOCIATE, GEOLOGY ASSOCIATE-C Jaci Mazariegos Attending Provider [phone] Corina RANGEL.TRACY, Julio Roberson Primary Care Provider Dr. Selene Pierre Primary Care Provider Dr. Selene Pierre Referring Provider Tony BENOIT, CY Sweeney Attending Provider Nancy BENOIT, PA Pablo Attending Provider [phone] Dr. Usama Sarmiento Attending Provider [phone] Corina TAPIA, GEOLOGY ASSOCIATE-C Julio Primary Care Provider Corina TAPIA, GEOLOGY ASSOCIATE-C Julio Referring Provider CY Reeves Attending Provider Briana TAPIA, GEOLOGY ASSOCIATE-C Jaci Mazariegos Attending Provider [phone] MD GIANNI CERVANTES Referring Provider MD GIANNI Valencia Other Provider Unavailable Dr. Isaac Nichols Attending Provider Dr. Andrez Pitts Attending Provider [phone] Dr. Andrez Pitts Other Provider [phone] Selene Pierre Primary Care Provider Dr. Selene Pierre Referring Provider Dr. Isaac Nichols Attending Provider Dr. Selene Pierre Referring Provider Corina TAPIA, GEOLOGY ASSOCIATE-C Julio Primary Care Provider Corina TAPIA, GEOLOGY ASSOCIATE-C Julio Referring Provider CY Mclain Attending Provider [phone] Dr. Usama Sarmiento Attending Provider [phone] Michael Rawls Attending Provider [phone] Corina TAPIA, GEOLOGY ASSOCIATE-C Julio Primary Care Provider Briana TAPIA, GEOLOGY ASSOCIATE-C Jaci Mazariegos Attending Provider Dr. Michael Rawls Admit Provider [phone] Michael Rawls Other Provider [phone] Michael Rawls Referring Provider [phone] Marti ROJAS, Ismael Guy (Rn)(Hist) Unavailable Unavailable Quin Nolan DO Unavailable Ronit Rahman DO Unavailable Corina PROCTORN.Julio MOLINA Primary Care Provider Selene Pierre MD Primary Care Provider Dr. Michael Rawls Attending Provider [phone] Corina TAPIA, GEOLOGY ASSOCIATE-C Julio Referring Provider Dr. Andrez Pitts Attending Provider [phone] Corina TAPIA, GEOLOGY ASSOCIATE-C Julio Primary Care Provider Ronit Rahman DO Unavailable Ronit Rahman DO Unavailable Corina TAPIA, GEOLOGY ASSOCIATE-C Julio Referring Provider [phone] Dr. Andrez Pitts Attending Provider [phone] Corina TAPIA, GEOLOGY ASSOCIATE-C Julio Primary Care Provider Dr. Michael Rawls Attending Provider [phone] Dr. Usama Sarmiento Attending Provider [phone] Corina RANGEL.Julio MOLINA Primary Care Provider Andrez Pitts DO Unavailable [phone] Selene Pierre MD Primary Care Provider JULIO [...] DO Unavailable Kenya Garcia MD Unavailable Toan MD, Daesung Unavailable Karen NEWMAN, Fredi D Unavailable Michel SAMUEL, Sarah Jamison Unavailable Raul Woody Unavailable Unavailabl e Karen NEWMAN, Fredi Unavailable Sabrina BENAVIDES, Josh Mcduffie Unavailable Doup RN, Roxanne Unavailable Unavailable Corina TAPIA-C, Julio Primary Care Provider Corina TAPIA-C, Julio Referring Provider Hong DO, [...] Provider Dr. Rigoberto Dow DO Emergency Provider [phone] Rigoberto Dow DO Attending Provider [...] Unavailable JULIO ARRIAGA Primary Care Unavailable Corina GEOLOGY ASSOCIATE-C, Julio Primary Care Provider Corina GEOLOGY ASSOCIATE-C, Julio Referring Provider Dr. Gaudencio Ambriz DO Attending Provider Alanis NEWMAN, Woo Emergency Provider Corina GEOLOGY ASSOCIATE-C, Julio Primary Care Provider Woo Thapa MD Attending Provider Juan José GEOLOGY ASSOCIATE-CMichelle Attending Provider Corina GEOLOGY ASSOCIATE-C, Julio Referring Provider Corina GEOLOGY ASSOCIATE-C, Julio Primary Care Provider Dr. Josh Bennett DO Attending Provider [phone] Josh Bennett DO Referring Provider Dr. Kenya Garcia MD Attending Provider Corina GEOLOGY ASSOCIATE-C, Julio Primary Care Provider Tyler NEWMAN, Dr. Muhammad Attending Provider Dr. Pawel Cason MD Emergency Provider Corina GEOLOGY ASSOCIATE-C, Julio Primary Care Provider Dr. Kenya Garcia [...] Primary Care Unavailable TOAN, DAESUNG Referring Unavailable TAON, DAESUNG Referring Unavailable JULIO ARRIAGA Primary Care [...] Unavailable JULIO ARRIAGA Primary Care Unavailable RON, DELIVN Referring Unavailable JULIO ARRIAGA Primary Care Unavailable [...] Unavailable JULIO ARRIAGA Primary Care Unavailable Corina GEOLOGY ASSOCIATE, Julio Primary Care Unavailable Woo Thapa Attending Unavailable Cason, Pawel Attending Unavailable Cason, Pawel Referring Unavailable Corina GEOLOGY ASSOCIATE, Julio Primary Care Unavailable Rigoberto Dow Attending Unavailable Corina GEOLOGY ASSOCIATE, Julio Primary Care Unavailable Juan JoséMichelle Attending Unavailable Juan José Michelle Referring Unavailable Corina GEOLOGY ASSOCIATE, Julio Primary Care Unavailable Corina GEOLOGY ASSOCIATE, Julio Primary Care Unavailable Gaudencio Ambriz Attending Unavailable Corina GEOLOGY ASSOCIATE, Julio Referring Unavailable Corina GEOLOGY ASSOCIATE, Julio Primary Care Unavailable Corina GEOLOGY ASSOCIATE, Julio Attending Unavailable Juan José, Michelle Attending Unavailable Corina GEOLOGY ASSOCIATE, Julio Primary Care Unavailable Juan José Michelle Referring Unavailable Kenya Garcia Attending Unavailable Kenya Garcia Admitting Unavailable Corina GEOLOGY ASSOCIATE, Julio Primary Care Unavailable Juan José Michelle Attending Unavailable Corina GEOLOGY ASSOCIATE, Julio Referring Unavailable Corina GEOLOGY ASSOCIATE, Julio Primary Care Unavailable Friend, Andrez Attending Unavailable Corina GEOLOGY ASSOCIATE, Julio Referring Unavailable Corina GEOLOGY ASSOCIATE, Julio Primary Care Unavailable Wanek, Kenya A Attending Unavailable Corina GEOLOGY ASSOCIATE, Julio Referring Unavailable Corina GEOLOGY ASSOCIATE, Julio Primary Care Unavailable Masci, Josh Attending Unavailable Masci, Josh Referring Unavailable Corina GEOLOGY ASSOCIATE, Julio Primary Care Unavailable Corina GEOLOGY ASSOCIATE, Julio Primary Care Unavailable Cason, Pawel Attending Unavailable Masci, Josh Referring Unavailable Masci, Josh Attending Unavailable Corina GEOLOGY ASSOCIATE, Julio Primary Care Unavailable Masci, Josh Referring Unavailable Masci, Josh Attending Unavailable Corina GEOLOGY ASSOCIATE, Julio Primary Care Unavailable Friend, Andrez Attending Unavailable Friend, Andrez Referring Unavailable Corina GEOLOGY ASSOCIATE, Julio Primary Care Unavailable Corina GEOLOGY ASSOCIATE, Julio Referring Unavailable Corina GEOLOGY ASSOCIATE, Julio Attending Unavailable Corina GEOLOGY ASSOCIATE, Julio Primary Care Unavailable Wanek, Kenya A Attending Unavailable Wanek, Kenya A Referring Unavailable Wanek, Kenya A Consulting Unavailable Corina GEOLOGY ASSOCIATE, Julio Primary Care Unavailable Corina GEOLOGY ASSOCIATE, Julio Primary Care Unavailable Michelle Baker Attending Unavailable Corina GEOLOGY ASSOCIATE, Julio Referring Unavailable Wanek, Kenya A Attending Unavailable Corina GEOLOGY ASSOCIATE, Julio Primary Care Unavailable Corina GEOLOGY ASSOCIATE, Julio Referring Unavailable Wanek, Kenya A Attending Unavailable Wanek, Kenya A Referring Unavailable Corina GEOLOGY ASSOCIATE, Julio Primary Care Unavailable Friend, Andrez Attending Unavailable Corina GEOLOGY ASSOCIATE, Julio Referring Unavailable Corina GEOLOGY ASSOCIATE, Julio Primary Care Unavailable Gaudencio Ambriz Attending Unavailable Corina GEOLOGY ASSOCIATE, Julio Primary Care Unavailable Corina GEOLOGY ASSOCIATE, Julio Primary Care Unavailable Michelle Baker Attending Unavailable Corina GEOLOGY ASSOCIATE, Julio Referring Unavailable Wanek, Kenya A Attending Unavailable Wanek, Kenya A Consulting Unavailable Corina GEOLOGY ASSOCIATE, Julio Primary Care Unavailable Wanek, Kenya A Admitting Unavailable Wanek, Kenya A Consulting Unavailable Wanek, Kenya A Attending Unavailable Corina GEOLOGY ASSOCIATE, Julio Primary Care Unavailable Lincoln Richards Attending Unavailable Masci, Josh Referring Unavailable Corina GEOLOGY ASSOCIATE, Julio Primary Care Unavailable FriendAndrez Attending Unavailable Corina GEOLOGY ASSOCIATE, Julio Primary Care Unavailable Corina GEOLOGY ASSOCIATE, Julio Referring Unavailable Corina GEOLOGY ASSOCIATE, Julio Referring Unavailable Corina GEOLOGY ASSOCIATE, Julio Primary Care Unavailable Friend, Andrez Attending Unavailable Allergies Allergy Classification Reported Allergen(s) Allergy Type Date of Onset Reaction(s) Facility Acetaminophen / HYDROcodone (1 source) Acetaminophen / HYDROcodone Drug Allergy 4 Vomiting [facility] Doxycycline (1 source) Doxycycline Drug Allergy 5 Anaphylaxis [facility] DULoxetine (1 source) DULoxetine Drug Allergy 4 Intolerance [facility] Opioid Agonists (2 sources) HYDROmorphone Drug Allergy 4 Vomiting [facility] (20 sources) Acetaminophen / HYDROcodone; Translations: [acetaminophen-hy drocodone] Drug Allergy 5 Vomiting [facility] (4 sources) Doxycycline; Translations: [doxycycline] Drug Allergy ORAL SWELLING, ITCHING [facility] (4 sources) HYDROmorphone; Translations: [hydromorphone] Drug Allergy NAUSEA AND VOMITING [facility] (4 sources) Naproxen; Translations: [naproxen] Drug Allergy ANAPHYLAXIS [facility] (4 sources) misc non-codified allergy 1 Drug allergy [facility] Comment on above: horse serum (20 sources) Doxycycline; Translations: [DOXYCYCLINE CALCIUM] Drug Allergy 5 Anaphylaxis [facility] Work Phone: (20 sources) DULoxetine; Translations: [DULOXETINE] Drug Allergy 5 Intolerance [facility] (20 sources) HYDROmorphone; Translations: [HYDROMORPHONE (BULK)] Drug Allergy 2 Vomiting [facility] (20 sources) Morphine; Translations: [MORPHINE] Drug Allergy 6 Vomiting [facility] (20 sources) Non-steroidal anti-inflammatory agent; Translations: [NSAIDS (NON-STEROIDAL ANTI-INFLAMMATORY DRUG)] Drug Allergy 5 Anaphylaxis [facility] Work Phone: (20 sources) horse serum [Other] Propensity to adverse reactions 5 [facility] Work Phone: (20 sources) Non-steroidal anti-inflammatory agent Drug Allergy 5 Anaphylaxis [facility] Work Phone: (20 sources) Doxycycline; Translations: [doxycycline hyclate] Drug Allergy 3 Anaphylaxis [facility] (20 sources) Doxycycline; Translations: [doxycycline monohydrate] Drug Allergy 3 Anaphylaxis [facility] (20 sources) HYDROcodone; Translations: [hydrocodone bitartrate] Drug Allergy 3 STOMACH UPSET [facility] (20 sources) HYDROmorphone; Translations: [hydromorphone HCl] Drug Allergy 3 Vomiting [facility] (20 sources) Nonsteroidal Anti-inflammatory Compounds Allergy to substance 3 Anaphylaxis [facility] (20 sources) Horse/Equine Containing Products; Translations: [HORSE/EQUINE CONTAINING PRODUCTS] Drug Allergy 4 Swelling [facility] (1 source) Acetaminophen / HYDROcodone Drug Allergy [facility] (1 source) celecoxib Drug Allergy [facility] (1 source) Doxycycline Drug Allergy [facility] (1 source) DULoxetine Drug Allergy [facility] (1 source) HYDROmorphone Drug Allergy [facility] (1 source) Morphine Drug Allergy [facility] (1 source) NSAID Drug allergy (disorder) [facility] (3 sources) Acetaminophen / HYDROcodone; Translations: [HYDROCODONE-ACET AMINOPHEN] Drug Allergy 4 [facility] Other [place] [facility] (1 source) Doxycycline Drug Allergy 5 [facility] (1 source) DULoxetine Drug Allergy 5 [facility] (1 source) Morphine Drug Allergy 5 [facility] (1 source) NSAIDs Drug allergy (disorder) 5 [facility] Medications Current Medications Medication Drug [...] Active Comment on above: Inject intravenously . [id number] 200 actuat albuterol 0.09 mg/actuat metered dose [...] Start: 10-24-2024 take 1 capsule by mo [facility] once daily Cholecalciferol (Vitamin D3) 1,250 [...] on above: Take 1 capsule by mo [facility] one time a week. Take 1 capsule by mo [facility] every other week. clindamycin 300 mg [...] Comment on above: Take [address] [facility] once daily. furosemide 20 mg [...] into the eye(s) four times daily Peg 029-Recoezrxxwhu-Rsnfzv in (Dry Eye Relief) 15 ML drops [...] on above: Take 1 capsule by mo [facility] twice daily for 180 days. Take 1 capsule by mo [facility] twice daily for 90 days. prochlorperazine [...] part of trunk Start: 08-29-2021 End: 09-05-2021 [place] 325- 5 mg oral tablet Dose = [...] 22, 2017 1:05am Acute sinusitis, unspecified amylase 649003 unt / lipase 68113 unt / protease 235573 unt delayed release oral capsule (20 sources) Start: 09-25-2023 End: 02-02-2025 Pxcajw-Ozmflmdn-Heytazv (Cre on) 36,000-114,000- 180,000 unit capsule,delayed release(DR/EC) Discontinued 0 PO .COMPLEX 300 11 January 25, 2025 4:25pm February 02, 2025 11:29am take 1-2 with snacks and 2-3 with meals End: 03-19-2025 take 1-3 capsules by mouth at bedtime fxxolr-yrzodfpq-inkdpxh (CREON 36) 36,000-114,000- 180,000 unit delayed release [...] on above: Take 1 capsule by mo [facility] once daily. budesonide 3 mg delayed [...] by mouth every four hours as needed oimrvtxtosQERKP-arvtqw-nykfcawwi (BMX 1: 1:1) 1:1:1 liqd Indications: Stomatitis [...] Ergocalciferol (Vitamin D2) 50,000 UNIT capsule Discontinued 86559 U PO MORALEZ November 13, 2017 12:00am [...] Comment on above: Take 1 tablet by [facility] every 6 hours as needed. 10 [...] Comment on above: Take 1 capsule by [facility] once daily. 2 ml ondansetron 2 [...] by mouth once daily. polyethylene glycol 3350 77021 mg powder for oral solution (20 sources) [...] sources) Long-term current use of anticoagulant; Translations: [senior care (current) use of anticoagulants] 11-07-2024 Episodic Other [...] sources) Taking high risk medication; Translations: [Other adjunct faculty for medical terminology (current) drug therapy] Onset: 0 12-01-2019 Episodic Other aftercare (1 source) Other adjunct faculty for medical terminology (current) drug therapy; Translations: [High risk medication [...] (Bld)on 03-19-2025 Basophils (Bld) [#/Vol] 0.05 10*3/uL [facility] Basophils/100 WBC (Bld) 1.1 % [facility] Differential cell count method Nom (Bld) Auto [facility] Eosinophils (Bld) [#/Vol] 0.19 10*3/uL [facility] Eosinophils/100 WBC (Bld) 4.0 % [facility] Erythrocyte distribution width (RBC) [Ratio] 14.3 % 11.5 - 15.0 % [facility] Hematocrit (Bld) [Volume fraction] 37.0 % 36.0 - 46.0 % [facility] Hemoglobin (Bld) [Mass/Vol] 11.6 g/dL 11.5 - 15.5 g/dL [facility] Immature granulocytes (Bld) [#/Vol] [facility] Immature granulocytes/100 WBC (Bld) 0.4 % [facility] Interpretation and review of laboratory results Abnormal [facility] Lymphocytes (Bld) [#/Vol] 0.45 10*3/uL Low [facility] Lymphocytes/100 WBC (Bld) 9.5 % [facility] MCH (RBC) [Entitic mass] 27.8 pg 26.0 - 34.0 pg [facility] MCHC (RBC) [Mass/Vol] 31.4 g/dL 30.5 - 36.0 g/dL [facility] MCV (RBC) [Entitic vol] 88.7 fL 80.0 - 100.0 fL [facility] Monocytes (Bld) [#/Vol] 0.53 10*3/uL [facility] Monocytes/100 WBC (Bld) 11.1 % [facility] Neutrophils (Bld) [#/Vol] 3.52 10*3/uL [facility] Neutrophils/100 WBC (Bld) 73.9 % [facility] Nucleated RBC (Bld) [#/Vol] [facility] Nucleated RBC/100 WBC (Bld) [Ratio] 0.0 % /100 WBC [facility] Platelet mean volume (Bld) [Entitic vol] 10.3 fL 9.0 - 12.7 fL [facility] Platelets (Bld) [#/Vol] 210 10*3/uL [facility] RBC (Bld) [#/Vol] 4.17 10*6/uL 3.90 - 5.2 0 m/uL [facility] WBC (Bld) [#/Vol] 4.76 10*3/uL [facility] Basophils (Bld) [#/Vol] 0.05 10*3/uL Normal <0.11 [facility] Comment on above: Order Comment: Speci men Type: BLOOD SPECIMENOrdering Facility: [facility] Address: [address] [place] [address] Performed By: #### 5 7021-8 ####[facility] [id number] [place] [address] [place] Basophils/100 WBC (Bld) 1.1 % Normal [facility] Comment on above: Order Comment: Speci men Type: BLOOD SPECIMENOrdering Facility: [facility] Address: [address] [place] [address] Performed By: #### 5 7021-8 ####[facility] [id number] [place] [address] [place] Differential cell count method Nom (Bld) Auto Normal [facility] Comment on above: Order Comment: Speci men Type: BLOOD SPECIMENOrdering Facility: [facility] Address: [address] [place] [address] Performed By: #### 5 7021-8 ####[facility] [id number] [place] [address] [place] Eosinophils (Bld) [#/Vol] 0.19 10*3/uL Normal <0.46 [facility] Comment on above: Order Comment: Speci men Type: BLOOD SPECIMENOrdering Facility: [facility] Address: [address] [place] [address] Performed By: #### 5 7021-8 ####[facility] NINA [id number] [place] [address] [place] Eosinophils/100 WBC (Bld) 4.0 % Normal [facility] Comment on above: Order Comment: Speci men Type: BLOOD SPECIMENOrdering Facility: [facility] Address: [address] [place] [address] Performed By: #### 5 7021-8 ####[facility] ALYSSAALBANYNICOLE [id number] [place] [address] [place] Erythrocyte distribution width (RBC) [Ratio] 14.3 % Normal 11.5-15.0 [facility] Comment on above: Order Comment: Speci men Type: BLOOD SPECIMENOrdering Facility: [facility] Address: [address] [place] [address] Performed By: #### 5 7021-8 ####[facility] FL[facility]IDAZEVTIFFANIA [id number] [place] [address] [place] Hematocrit (Bld) [Volume fraction] 37.0 % Normal 36.0-46.0 [facility] Comment on above: Order Comment: Speci men Type: BLOOD SPECIMENOrdering Facility: [facility] Address: [address] [place] [address] Performed By: #### 5 7021-8 ####[facility] FLORIDANCLIA [id number] [place] [address] [place] Hemoglobin (Bld) [Mass/Vol] 11.6 g/dL Normal 11.5-15.5 [facility] Comment on above: Order Comment: Speci men Type: BLOOD SPECIMENOrdering Facility: [facility] Address: [address] [place] [address] Performed By: #### 5 7021-8 ####[facility] [id number] [place] [address] [place] Immature granulocytes (Bld) [#/Vol] 10*3/uL Normal <0.10 [facility] Comment on above: Order Comment: Speci men Type: BLOOD SPECIMENOrdering Facility: [facility] Address: [address] [place] [address] Performed By: #### 5 7021-8 ####[facility] [id number] [place] [address] [place] Immature granulocytes/100 WBC (Bld) 0.4 % Normal [facility] Comment on above: Order Comment: Speci men Type: BLOOD SPECIMENOrdering Facility: [facility] Address: [address] [place] [address] Performed By: #### 5 7021-8 ####[facility] [id number] [place] [address] [place] Lymphocytes (Bld) [#/Vol] 0.45 10*3/uL Low 1.00-4.00 [facility] Comment on above: Order Comment: Speci men Type: BLOOD SPECIMENOrdering Facility: [facility] Address: [address] [place] [address] Performed By: #### 5 7021-8 ####[facility] [id number] [place] [address] [place] Lymphocytes/100 WBC (Bld) 9.5 % Normal [facility] Comment on above: Order Comment: Speci men Type: BLOOD SPECIMENOrdering Facility: [facility] Address: [address] [place] [address] Performed By: #### 5 7021-8 ####[facility] [id number] [place] [address] [place] MCH (RBC) [Entitic mass] 27.8 pg Normal 26.0-34.0 [facility] Comment on above: Order Comment: Speci men Type: BLOOD SPECIMENOrdering Facility: [facility] Address: [address] [place] [address] Performed By: #### 5 7021-8 ####[facility] [id number] [place] [address] [place] MCHC (RBC) [Mass/Vol] 31.4 g/dL Normal 30.5-36.0 [facility] Comment on above: Order Comment: Speci men Type: BLOOD SPECIMENOrdering Facility: [facility] Address: [address] [place] [address] Performed By: #### 5 7021-8 ####[facility] [id number] [place] [address] [place] MCV (RBC) [Entitic vol] 88.7 fL Normal 80.0-100.[address] [facility] Comment on above: Order Comment: Speci men Type: BLOOD SPECIMENOrdering Facility: [facility] Address: [address] [place] [address] Performed By: #### 5 7021-8 ####[facility] [id number] [place] [address] [place] Monocytes (Bld) [#/Vol] 0.53 10*3/uL Normal <0.87 [facility] Comment on above: Order Comment: Speci men Type: BLOOD SPECIMENOrdering Facility: [facility] Address: [address] [place] [address] Performed By: #### 5 7021-8 ####[facility] FLORIDANCLI [id number] [address] [place] Monocytes/100 WBC (Bld) 11.1 % Normal [facility] Comment on above: Order Comment: Speci men Type: BLOOD SPECIMENOrdering Facility: [facility] Address: [address] [place] [address] Performed By: #### 5 7021-8 ####[facility] ALYSSAWNCLIA [id number] [place] [address] [place] Neutrophils (Bld) [#/Vol] 3.52 10*3/uL Normal 1.45-7.50 [facility] Comment on above: Order Comment: Speci men Type: BLOOD SPECIMENOrdering Facility: [facility] Address: [address] [place] [address] Performed By: #### 5 7021-8 ####[facility] [facility]CLIA [id number] [place] [address] [place] Neutrophils/100 WBC (Bld) 73.9 % Normal [facility] Comment on above: Order Comment: Speci men Type: BLOOD SPECIMENOrdering Facility: [facility] Address: [address] [place] [address] Performed By: #### 5 7021-8 ####[facility] FLORIDANCLIA [id number] [place] [address] [place] Nucleated RBC (Bld) [#/Vol] 10*3/uL Normal <0.01 [facility] Comment on above: Order Comment: Speci men Type: BLOOD SPECIMENOrdering Facility: [facility] Address: [address] [place] [address] Performed By: #### 5 7021-8 ####[facility] MILLWNCLIA [id number] [place] [address] [place] Nucleated RBC/100 WBC (Bld) [Ratio] 0.0 /100 WBC Normal [facility] Comment on above: Order Comment: Speci men Type: BLOOD SPECIMENOrdering Facility: [facility] Address: [address] [place] [address] Performed By: #### 5 7021-8 ####[facility] CENTERLIA [id number] [place] [address] [place] Platelet mean volume (Bld) [Entitic vol] 10.3 fL Normal 9.0-12.7 [facility] Comment on above: Order Comment: Speci men Type: BLOOD SPECIMENOrdering Facility: [facility] Address: [address] [place] [address] Performed By: #### 5 7021-8 ####[facility] ALYSSAALEJANDRINALIA [id number] [place] [address] [place] Platelets (Bld) [#/Vol] 210 10*3/uL Normal 150-400 [facility] Comment on above: Order Comment: Speci men Type: BLOOD SPECIMENOrdering Facility: [facility] Address: [address] [place] [address] Performed By: #### 5 7021-8 ####[facility] FLORIDAZEVLIA [id number] [place] [address] [place] RBC (Bld) [#/Vol] 4.17 10*6/uL Normal 3.90-5.20 [facility] Comment on above: Order Comment: Speci men Type: BLOOD SPECIMENOrdering Facility: [facility] Address: [address] [place] [address] Performed By: #### 5 7021-8 ####[facility] ALYSSAALBANYZEVLIA [id number] [place] [address] [place] WBC (Bld) [#/Vol] 4.76 10*3/uL Normal 3.70-11.00 [facility] Comment on above: Order Comment: Speci men Type: BLOOD SPECIMENOrdering Facility: [facility] Address: [address] [place] [address] Performed By: #### 5 7021-8 ####[facility] FLORIDANCLIA [id number] [place] [address] [place] CNOVSPon 03-19-2025 CNOVSP Normal [facility] CNPNon 03-19-2025 CNPN Normal [facility] Gastroenterology Visit Repor ton 03-16-2025 Gastroenterology Visit Report [facility] Gastroenterology [address] [place] [address] OFFICE VISIT Date of Service: 03/16/25 MR#: [id number] Acct: [id number] Name: MARIMAR WANG Rep #: [id number] : 1960 Provider: SINAI arriaza Age/Sex: 64/F Location[facility] Status: Signed Intake Vital Signs 02/02/25 11:01 [...] FU Chief Complaint: follow-up of ongoing diarrhea Supervisor Electronic Coils Required: No Accompanied by: Self Is patient [...] [facility]HS MENTAL HEALTH 6 03/16/25 History peg 411-haanzgzrswqs-tfcyetm n 1 1 drp OP 4X/DAY DRY [...] either comes up or runs back out. [facility] Medical History (Updated 03/16/25 @ [...] palpitations Nausea (more content not included)... Normal [facility] Flex Sigmoidoscopy Reporton 03-02-2025 Flex Sigmoidoscopy Report [facility] Medical Records Department [address] [place] [address] Flex Sigmoidoscopy Report MR#: [id number] Acct: [id number] Name: MARIMAR WANG Rep #: [id number] : 1960 64 From: Kenya Garcia MD PCP: Julio Arriaga NP-C Status:REG [facility] Patient Name: Marimar Wang Procedure Date: 03/02/2025 [...] normal. Biopsied. Procedure Code(s): --- Professional --- 79450, 52, Sigmoidoscopy, flexible; with biopsy, single or multiple Diagnosis Code(s): --- Professional --- Z85.048, Personal history of other malignant neoplasm of rectum, rectosigmoid junction, and anus CPT copyright 2021 [employer]. All rights reserved. The codes documented in this report are preliminary and upon surgical coder review may be revised to meet current compliance requirements. Kenya Garcia MD 03/02/2025 10:43:59 AM This report has been signed electronically. Number of Addenda: 0 Note Initiated On: 03/02/2025 10:02 AM 03/02/25 104 Date Kenya Garcia MD Cosigner Signature: Date (if indicated) CC: SINAI Arriaga; Dr. Kenya Garcia MD Date Dictated: 03/02/25 1002 Date Transcribed: Melt Supervisor: SHILPA Pineda [facility] MR[facility]OP.[facility] Medical Records Department [address] [place] [address] Provation Physician Letter MR#: [id number] Acct: [id number] Name: MARIMAR WANG Rep #: [id number] : 1960 64 From: Kenya Garcia MD PCP: SINAI Arriola Status:REG [facility] 03/02/2025 Sinai Arriola Re : Flexible Sigmoidoscopy [...] MD Cosigner Signature: Date (if indicated) CC: GEOLOGY ASSOCIATE-C Julio Arriaga; Dr. Kenya Garcia MD Date Dictated: 03/02/251001 Date Transcribed: Melt Supervisor: SW Signed [facility] MR/POSTOP.ANE 03-02-2025 MR/POSTOP.[facility] Medical Records Department [address] [place] [address] Anesthesia Postop Eval I 03/02/251044 MR#: [id number] Acct: [id number] Name: TIMMYJODIMalenaMARIMAR Rep #: [id number] : 1960 64 From: Quang Hagen CRNA PCP: SINAI Arriola Status:REG [facility] Y Race: C Location: [place] [address] Anesthesia: Postop Eval I Current Vital Signs Temperature: 97 F Pulse Rate: 78 Blood Pressure: 107/64 Respiratory Rate: 16 Pulse Ox: 96 Assessment Airway patent: Yes Spontaneous unlabored respirations: Yes nausea: No Vomiting: No Anesthesia Complication: No Fluid Hydration Crystalloid volume administer (ml): 300 Total IV fluid infused: 300 Progress Note Anesthesia document: Postop Eval 1 completed: Yes 03/02/251044 Date Quang Hagen NURSE OB Cosigner Signature: Date CC: Signed [facility] MR/DEZOWMZA7cb 03-02-2025 MR/POSTOPAN2 [facility] Medical Records Department [address] [place] [address] Anesthesia Postop Eval II 03/02/252015 MR#: [id number] Acct: [id number] Name: MARIMAR WANG Rep #: [id number] : 1960 64 From: Nikita Aguiar MD PCP: Julio Arriaga, GEOLOGY ASSOCIATE-C Status:DEP [facility] Y Race: C Location: EN Anesthesia Postop Eval I Sum Postop Eval Completion status Anesthesia document: Postop Eval 1 completed: Yes Anesthesia Postop Eval I Summary Anesthesia Postop Eval I Summary: Anesthesia Postop Eval I: Assessment Summary Airway patent Yes 03/02/25 10:45 NURSE OB.TNES Spontaneous unlabored Yes 03/02/25 10:45 NURSE OB.TNES respirations Mental status nausea No 03/02/25 10:45 NURSE OB.TNES Vomiting No 03/02/25 10:45 NURSE OB.TNES Anesthesia Postop Eval I: Fluid Summary Crystalloid volume administer 300 03/02/25 10:45 NURSE OB.TNES (ml) Colloids volume administered ( ml) Blood Product volume administered (ml) Total IV fluid infused 300 03/02/25 10:45 NURSE OB.TNES Anesthesia Postop Eval I: Summary Notes Anesthesia Complication No 03/02/25 10:45 NURSE OB.TNES Anesthesia Complication Comment: Post-operative progress note Anesthesia: Postop Eval II Evaluation Mental status: Awake and Calm Pain Level: 1 nausea: No Vomiting: No Complications Anesthesia Complication: No 03/02/252015 Date Nikita Aguiar MD [facility] Signature: Date CC: Signed Normal [facility] Surgery Specimen Level Nubia 03-02-2025 Surgery Specimen Level IV Patient Age/Sex Location Account Attending Physician MARIMAR WANG 64/F EN [id number] Dr. Kenya Garcia MD Specimen: [id number] Received: 03/02/25 Status: SAMREEN Aparicio Num: [id number] Spec Type: COLON BX Subm Dr: Dr. [...] specimen is totally submitted in one cassette. CPT:42148 Patient Age/Sex Location Account Attending Physician MARIMAR WANG 64/F EN [id number] Dr. Kenya Garcia MD Signed (signature on file) Dr. Lizzie Coelho MD 03/05/25 1420 Normal [facility] Comment on above: Performed By: #### L [phone] #### [facility] [address] [place], [place], [address] Emergency Department Summary on 02-27-2025 Emergency Department Summary [facility] Medical Records Department [address] [place] [address] Emergency Department Summary 02/27/25 MR#: [id number] Acct: [id number] Name: MARIMAR WANG Rep #: [id number] : 1960 64 From: Pawel Cason MD [...] QHS MENTAL HEALTH 6 09/01/24 History peg 380-lmxlgyxjwpei-hqmfybo n 1 1 drp OP 4X/DAY DRY [...] mcg (50,000 (more content not included)... 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 Hx Hospitalization Yes: AUG 2024, ANAL CANCER [...] take am of surgery PONV PONV - filling machine set up mechanic: PONV - filling machine set up mechanic Female Yes 02/24/25 14:24 HX of Motion [...] 02/09/25 09:46 Respiratory Assessment Respiratory Assessment - filling machine set up mechanic: Respiratory Tract Infection Hx - filling machine set up mechanic Hx Respiratory Tract Infection No 02/24/25 14:24 STOP Sleep Apnea STOP Sleep Apnea - filling machine set up mechanic: STOP Sleep Apnea - filling machine set up mechanic Hx Hypertension Yes 02/24/25 14:24 Hx Sleep [...] Tobacco Use History Tobacco Use History - filling machine set up mechanic: Tobacco Use History - filling machine set up mechanic Tobacco Use Smoking Status Former smoker 02/24/25 14:24 Hx Tobacco Use No 02/24/25 14:24 Years Smoking Packs Smoked per Day Smoking Cessation Date was Yes - quit smoking within 15 02/24/25 14:24 within the last 15 years years Hx Smoking Cessation Date 12/27/13 02/24/25 14:24 Hx Smoking Cessation No 02/24/25 14:24 Counseling Hematologic Medial History Hematologic Hx - filling 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 Specify any problems Hx of Preganancy in last 3 No 02/24/25 14:24 Months Nurse Filling Out Transfusion [facility] 02/24/25 14:24 Questions: Date: 02/24/25 02/24/25 14:24 Time: 14:37 02/24/25 14:24 Patient unable to answer at this time (ie. 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 History - filling machine set up mechanic: /Reproductive Hx- filling machine set up mechanic Hx Now No 02/24/25 14:24 Gestational Age (in weeks): EDC: Hx Hx Para Hx Section SAB No 02/24/25 14:24 [facility] Medical History (Updated 02/24/25 @ [...] viral com (more content not included)... Normal [facility] CNPNon 02-17-2025 CNPN Normal [facility] CNPNon 02-15-2025 CNPN Normal [facility] CNPNon 02-12-2025 CNPN Normal [facility] CNPNon 02-09-2025 CNPN Normal [facility] Surgery Visit Reporton 02-09 Surgery Visit Report [facility] [address] [place] [address] OFFICE VISIT Date of Service: 02/09/25 MR#: [id number] Acct: [id number] Name: MARIMAR WANG Rep #: [id number] : 1960 Provider: Dr. Kenya fuentes MD Age/Sex: 64/F Location: [facility] Status: Signed Intake Vital Signs 10/30/24 00:58 [...] QHS MENTAL HEALTH 6 02/09/25 History peg 490-phktahstdexz-nwrskle n 1 1 drp OP 4X/DAY DRY [...] Q12H 10/24/24 02/09/25 History a dose pack ([employer] DVT-PE Treat 30D Start) cholecalciferol (vitamin D3) [...] you fallen in the past year?: No [facility] Medical History Squamous cell cancer [...] bipolar pros (more content not included)... Normal [facility] Gastroenterology Visit Repor ton 02-02-2025 Gastroenterology Visit Report [facility] Gastroenterology [address] [place] [address] OFFICE VISIT Date of Service: 02/02/25 MR#: [id number] Acct: [id number] Name: MARIMAR WANG Rep #: [id number] : 1960 Provider: SINAI arriaza Age/Sex: 64/F Location[place] [facility] Status: Signed Intake Vital Signs 01/14/25 08:27 [...] QHS MENTAL HEALTH 6 02/02/25 History peg 991-gailqfldbbes-xqduiwh n 1 1 drp OP 4X/DAY DRY [...] bipolar pro (more content not included)... Normal [facility] CBC W Auto Differential pane l (Bld)on 02-01-2025 Basophils (Bld) [#/Vol] 0.05 10*3/uL [facility] Basophils/100 WBC (Bld) 1.1 % [facility] Differential cell count method Nom (Bld) Auto [facility] Eosinophils (Bld) [#/Vol] 0.2 10*3/uL [facility] Eosinophils/100 WBC (Bld) 4.4 % [facility] Erythrocyte distribution width (RBC) [Ratio] 14.1 % 11.5 - 15.0 % [facility] Hematocrit (Bld) [Volume fraction] 34.2 % Low 36.0 - 46.0 % [facility] Hemoglobin (Bld) [Mass/Vol] 10.9 g/dL Low 11.5 - 15.5 g/dL [facility] Immature granulocytes (Bld) [#/Vol] [facility] Immature granulocytes/100 WBC (Bld) 0.4 % [facility] Interpretation and review of laboratory results Abnormal [facility] Lymphocytes (Bld) [#/Vol] 0.39 10*3/uL Low [facility] Lymphocytes/100 WBC (Bld) 8.6 % [facility] MCH (RBC) [Entitic mass] 29.2 pg 26.0 - 34.0 pg [facility] MCHC (RBC) [Mass/Vol] 31.9 g/dL 30.5 - 36.0 g/dL [facility] MCV (RBC) [Entitic vol] 91.7 fL 80.0 - 100.0 fL [facility] Monocytes (Bld) [#/Vol] 0.51 10*3/uL [facility] Monocytes/100 WBC (Bld) 11.2 % [facility] Neutrophils (Bld) [#/Vol] 3.39 10*3/uL [facility] Neutrophils/100 WBC (Bld) 74.3 % [facility] Nucleated RBC (Bld) [#/Vol] [facility] Nucleated RBC/100 WBC (Bld) [Ratio] 0 % /100 WBC [facility] Platelet mean volume (Bld) [Entitic vol] 10.4 fL 9.0 - 12.7 fL [facility] Platelets (Bld) [#/Vol] 202 10*3/uL [facility] RBC (Bld) [#/Vol] 3.73 10*6/uL Low 3.90 - 5.2 0 m/uL [facility] WBC (Bld) [#/Vol] 4.56 10*3/uL [facility] Basophils (Bld) [#/Vol] 0.05 10*3/uL Normal <0.11 [facility] Comment on above: Order Comment: Speci men Type: BLOOD SPECIMENOrdering Facility: [facility] Address: [address] [place] [address] Performed By: #### 5 7021-8 ####[facility]PITALA [id number] [place] [address] [place] Basophils/100 WBC (Bld) 1.1 % [facility] Comment on above: Order Comment: Speci men Type: BLOOD SPECIMENOrdering Facility: [facility] Address: [address] [place] [address] Performed By: #### 5 7021-8 ####[facility]OSPITALA [id number] [place] [address] [place] Differential cell count method Nom (Bld) Auto Normal [facility] Comment on above: Order Comment: Speci men Type: BLOOD SPECIMENOrdering Facility: [facility] Address: [address] [place] [address] Performed By: #### 5 7021-8 ####[facility]IDANCLIA [id number] [place] [address] [place] Eosinophils (Bld) [#/Vol] 0.20 10*3/uL Normal <0.46 [facility] Comment on above: Order Comment: Speci men Type: BLOOD SPECIMENOrdering Facility: [facility] Address: [address] [place] [address] Performed By: #### 5 7021-8 ####[facility]ITALKAREEMA [id number] [place] [address] [place] Eosinophils/100 WBC (Bld) 4.4 % Normal [facility] Comment on above: Order Comment: Speci men Type: BLOOD SPECIMENOrdering Facility: [facility] Address: [address] [place] [address] Performed By: #### 5 7021-8 ####[facility] FLORIDAZEVBLAKE [id number] [place] [address] [place] Erythrocyte distribution width (RBC) [Ratio] 14.1 % Normal 11.5-15.0 [facility] Comment on above: Order Comment: Speci men Type: BLOOD SPECIMENOrdering Facility: [facility] Address: [address] [place] [address] Performed By: #### 5 7021-8 ####[facility] [id number] [place] [address] [place] Hematocrit (Bld) [Volume fraction] 34.2 % Low 36.0-46.0 [facility] Comment on above: Order Comment: Speci men Type: BLOOD SPECIMENOrdering Facility: [facility] Address: [address] [place] [address] Performed By: #### 5 7021-8 ####[facility]IDANCLIA [id number] [place] [address] [place] Hemoglobin (Bld) [Mass/Vol] 10.9 g/dL Low 11.5-15.5 [facility] Comment on above: Order Comment: Speci men Type: BLOOD SPECIMENOrdering Facility: [facility] Address: [address] [place] [address] Performed By: #### 5 7021-8 ####[facility] FL[facility]IDANCLIA [id number] [place] [address] [place] Immature granulocytes (Bld) [#/Vol] 10*3/uL Normal <0.10 [facility] Comment on above: Order Comment: Speci men Type: BLOOD SPECIMENOrdering Facility: [facility] Address: [address] [place] [address] Performed By: #### 5 7021-8 ####[facility] [id number] [place] [address] [place] Immature granulocytes/100 WBC (Bld) 0.4 % Normal [facility] Comment on above: Order Comment: Speci men Type: BLOOD SPECIMENOrdering Facility: [facility] Address: [address] [place] [address] Performed By: #### 5 7021-8 ####[facility] [id number] [place] [address] [place] Lymphocytes (Bld) [#/Vol] 0.39 10*3/uL Low 1.00-4.00 [facility] Comment on above: Order Comment: Speci men Type: BLOOD SPECIMENOrdering Facility: [facility] Address: [address] [place] [address] Performed By: #### 5 7021-8 ####[facility] [id number] [address] [place] Lymphocytes/100 WBC (Bld) 8.6 % Normal [facility] Comment on above: Order Comment: Speci men Type: BLOOD SPECIMENOrdering Facility: [facility] Address: [address] [place] [address] Performed By: #### 5 7021-8 ####[facility] [id number] [place] [address] [place] MCH (RBC) [Entitic mass] 29.2 pg Normal 26.0-34.0 [facility] Comment on above: Order Comment: Speci men Type: BLOOD SPECIMENOrdering Facility: [facility] Address: [address] [place] [address] Performed By: #### 5 7021-8 ####[facility] NABILNCLIA [id number] [place] [address] [place] MCHC (RBC) [Mass/Vol] 31.9 g/dL Normal 30.5-36.0 [facility] Comment on above: Order Comment: Speci men Type: BLOOD SPECIMENOrdering Facility: [facility] Address: [address] [place] [address] Performed By: #### 5 7021-8 ####[facility] FLORIDANCLIA [id number] [place] [address] [place] MCV (RBC) [Entitic vol] 91.7 fL Normal 80.0-100.[address] [facility] Comment on above: Order Comment: Speci men Type: BLOOD SPECIMENOrdering Facility: [facility] Address: [address] [place] [address] Performed By: #### 5 7021-8 ####[facility] FL[facility]IDANCLIA [id number] [place] [address] [place] Monocytes (Bld) [#/Vol] 0.51 10*3/uL Normal <0.87 [facility] Comment on above: Order Comment: Speci men Type: BLOOD SPECIMENOrdering Facility: [facility] Address: [address] [place] [address] Performed By: #### 5 7021-8 ####[facility] FL[facility]IDANCLIA [id number] [place] [address] [place] Monocytes/100 WBC (Bld) 11.2 % Normal [facility] Comment on above: Order Comment: Speci men Type: BLOOD SPECIMENOrdering Facility: [facility] Address: [address] [place] [address] Performed By: #### 5 7021-8 ####[facility] FLORIDAZEVLIA [id number] [place] [address] [place] Neutrophils (Bld) [#/Vol] 3.39 10*3/uL Normal 1.45-7.50 [facility] Comment on above: Order Comment: Speci men Type: BLOOD SPECIMENOrdering Facility: [facility] Address: [address] [place] [address] Performed By: #### 5 7021-8 ####[facility] CENTERLIA [id number] [place] [address] [place] Neutrophils/100 WBC (Bld) 74.3 % Normal [facility] Comment on above: Order Comment: Speci men Type: BLOOD SPECIMENOrdering Facility: [facility] Address: [address] [place] [address] Performed By: #### 5 7021-8 ####[facility] [id number] [place] [address] [place] Nucleated RBC (Bld) [#/Vol] 10*3/uL Normal <0.01 [facility] Comment on above: Order Comment: Speci men Type: BLOOD SPECIMENOrdering Facility: [facility] Address: [address] [place] [address] Performed By: #### 5 7021-8 ####[facility] [id number] [place] [address] [place] Nucleated RBC/100 WBC (Bld) [Ratio] 0.0 /100 WBC Normal [facility] Comment on above: Order Comment: Speci men Type: BLOOD SPECIMENOrdering Facility: [facility] Address: [address] [place] [address] Performed By: #### 5 7021-8 ####[facility]IDANCLI [id number] [place] [address] [place] Platelet mean volume (Bld) [Entitic vol] 10.4 fL Normal 9.0-12.7 [facility] Comment on above: Order Comment: Speci men Type: BLOOD SPECIMENOrdering Facility: [facility] Address: [address] [place] [address] Performed By: #### 5 7021-8 ####[facility] FL[facility]IDANCLIA [id number] [place] [address] [place] Platelets (Bld) [#/Vol] 202 10*3/uL Normal 150-400 [facility] Comment on above: Order Comment: Speci men Type: BLOOD SPECIMENOrdering Facility: [facility] Address: [address] [place] [address] Performed By: #### 5 7021-8 ####[facility] FLORIDANCA [id number] [place] [address] [place] RBC (Bld) [#/Vol] 3.73 10*6/uL Low 3.90-5.20 [facility] Comment on above: Order Comment: Speci men Type: BLOOD SPECIMENOrdering Facility: [facility] Address: [address] [place] [address] Performed By: #### 5 7021-8 ####[facility] [id number] [place] [address] [place] WBC (Bld) [#/Vol] 4.56 10*3/uL Normal 3.70-11.00 [facility] Comment on above: Order Comment: Speci men Type: BLOOD SPECIMENOrdering Facility: [facility] Address: [address] [place] [address] Performed By: #### 5 7021-8 ####[facility] FLORIDANCLIA [id number] [place] [address] [place] Comprehensive metabolic 2000 panelOrdered By: Tala Mejia on 02-01-2025 Albumin [Mass/Vol] 3.6 g/dL Low 3.9 - 4.9 g/dL [facility] ALP [Catalytic activity/Vol] 85 U/L 34 - 123 U/L [facility] ALT [Catalytic activity/Vol] 8 U/L 7 - 38 U/L [facility] Anion gap [Moles/Vol] 13 mmol/L 8 - 15 mmol/L [facility] AST [Catalytic activity/Vol] 15 U/L 13 - 35 U/L [facility] Bilirubin [Mass/Vol] 0.2 mg/dL 0.2 - 1 .3 mg/dL [facility] Calcium [Mass/Vol] 8.8 mg/dL 8.5 - 10. 2 mg/dL [facility] Chloride [Moles/Vol] 101 mmol/L 98 - 10 7 mmol/L [facility] CO2 [Moles/Vol] 21 mmol/L Low 22 - 30 mmol/L [facility] Creatinine [Mass/Vol] 0.62 mg/dL 0.58 - 0.96 mg/dL [facility] GFR/1.73 sq M.predicted among non-blacks MDRD (S/P/Bld) [Vol rate/Area] 99 mL/min/{1.73_m2} - PINF [facility] Comment on above: Estimated Glomerular Filtration [...] [Mass/Vol] 92 mg/dL 74 - 99 mg/dL [facility] Comment on above: The [place] Diabete s Association (ADA) provides guidance for [...] Standards of Medical Care in Diabetes 2016, [place] Diabetes Association. Diabetes Care. 2016.39(Suppl 1). Interpretation and review of laboratory results Abnormal [facility] Potassium [Moles/Vol] 4.4 mmol/L 3.7 - 5.1 mmol/L [facility] Protein [Mass/Vol] 6.3 g/dL 6.3 - 8.0 g/dL [facility] Sodium [Moles/Vol] 135 mmol/L Low 136 - 144 mmol/L [facility] Urea nitrogen [Mass/Vol] 7 mg/dL 7 - 21 mg/dL [facility] Comprehensive metabolic 2000 panelon 02-01-2025 Albumin [Mass/Vol] 3.6 g/dL Low 3.9-4.9 [facility] Comment on above: Order Comment: Speci men Type: BLOOD SPECIMENOrdering Facility: [facility] Address: [address] [place] [address] Performed By: #### 2 4323-8 ####[facility] MILLWZEVLIA [id number] [address] [place] LABCLIA [id number] [place] [address] [place] ALP [Catalytic activity/Vol] 85 U/L Normal 34-123 [facility] Comment on above: Order Comment: Speci men Type: BLOOD SPECIMENOrdering Facility: [facility] Address: [address] [place] [address] Performed By: #### 2 4323-8 ####[facility] HOSPITALTOWNCLIA [id number] [address] [place] LABCLIA [id number] [place] [address] [place] ALT [Catalytic activity/Vol] 8 U/L Normal 7-38 [facility] Comment on above: Order Comment: Speci men Type: BLOOD SPECIMENOrdering Facility: [facility] Address: [address] [place] [address] Performed By: #### 2 4323-8 ####[facility] MILLWNCLIA [id number] [place], [place] [address] [place] [address] OF AMERICAAKRON GENERAL [place] LABCLIA [id number] [place] [address] [place] Anion gap [Moles/Vol] 13 mmol/L Normal 8-15 [facility] Comment on above: Order Comment: Speci men Type: BLOOD SPECIMENOrdering Facility: [facility] Address: [address] [place] [address] Performed By: #### 2 4323-8 ####[facility] RIGOBERTO MILLTOWNCLIA [id number] [address] OF [facility] [place] LABCLIA [id number] [place] [address] [place] AST [Catalytic activity/Vol] 15 U/L Normal 13-35 [facility] Comment on above: Order Comment: Speci men Type: BLOOD SPECIMENOrdering Facility: [facility] Address: [address] [place] [address] Performed By: #### 2 4323-8 ####[facility] RIGOBERTO MILLTOWNCLIA [id number] [address] OF [facility] [place] LABCLIA [id number] [place] [address] [place] Bilirubin [Mass/Vol] 0.2 mg/dL Normal 0.2-1.3 [facility] Comment on above: Order Comment: Speci men Type: BLOOD SPECIMENOrdering Facility: [facility] Address: [address] [place], [place] [address] Performed By: #### 2 4323-8 ####[facility] RIGOBERTO MILLTOWNCLIA [id number] [address] STATES OF AMERICAAKRON GENERAL [place] LABCLIA [id number] [place] [address] [place] Calcium [Mass/Vol] 8.8 mg/dL Normal 8.5-10.2 [facility] Comment on above: Order Comment: Speci men Type: BLOOD SPECIMENOrdering Facility: [facility] Address: [address] [place] [address] Performed By: #### 2 4323-8 ####[facility] RIGOBERTO MILLTOWNCLIA [id number] [place] [address] [place] [facility] [place] LABCLIA [id number] [place] [address] [place] Chloride [Moles/Vol] 101 mmol/L Normal 98-107 [facility] Comment on above: Order Comment: Speci men Type: BLOOD SPECIMENOrdering Facility: [facility] Address: [address] [place] [address] Performed By: #### 2 4323-8 ####[facility] RIGOBERTO MILLTOWNCLIA [id number] [place] [address] UNITED [facility] OF AMERICAAKRON GENERAL [place] LABCLIA [id number] [place] [address] [place] CO2 [Moles/Vol] 21 mmol/L Low 22-30 [facility] Comment on above: Order Comment: Speci men Type: BLOOD SPECIMENOrdering Facility: [facility] Address: [address] [place] [address] Performed By: #### 2 4323-8 ####[facility] RIGOBERTO MILLTOWNCLIA [id number] [address] [facility] [place] LABCLIA [id number] [place] [address] [place] Creatinine [Mass/Vol] 0.62 mg/dL Normal 0.58-0.96 [facility] Comment on above: Order Comment: Speci men Type: BLOOD SPECIMENOrdering Facility: [facility] Address: [address] [place] [address] Performed By: #### 2 4323-8 ####[facility] RIGOBERTO MILLTOWNCLIA [id number] [address] LABCLIA [id number] [place] [id number] [place] [facility] Creatinine and Glomerular filtration rate.predicted panel (S/P/Bld) 99 mL/min/1.73m??? Normal >=60 [facility] Comment on above: Order Comment: Mindy mcfarlane Type: BLOOD SPECIMENOrdering Facility: [facility] Address: [address] [place] [address] Result Comment: Sonia mated Glomerular Filtration Rate [...] actual GFR. Performed By: #### 2 4323-8 ####[facility] [id number] [address] LABVERMONT [facility] [id number] [place] [address] [place] Glucose [Mass/Vol] 92 mg/dL Normal 74-99 [facility] Comment on above: Order Comment: Mindy mcfarlane Type: BLOOD SPECIMENOrdering Facility: [facility] Address: [address] [place] [address] Result Comment: The [place] Diabetes Association (ADA) provides guidance for cutoff [...] Standards of Medical Care in Diabetes 2016, [place] Diabetes Association. Diabetes Care. 2016.39(Suppl 1). Performed By: #### 2 4323-8 ####[facility] RIGOBERTO MILLTOWNCLIA [id number] [address] [facility] [place] LABCLIA [id number] [place] [address] [place] Potassium [Moles/Vol] 4.4 mmol/L Normal 3.7-5.1 [facility] Comment on above: Order Comment: Speci men Type: BLOOD SPECIMENOrdering Facility: [facility] Address: [address] [place] [address] Performed By: #### 2 4323-8 ####[facility] MILLTOWNCLIA [id number] [address] [place] LABCLIA [id number] [place] [address] [place] Protein [Mass/Vol] 6.3 g/dL Normal 6.3-8.0 [facility] Comment on above: Order Comment: Speci men Type: BLOOD SPECIMENOrdering Facility: [facility] Address: [address] [place] [address] Performed By: #### 2 4323-8 ####[facility] MILLTOWNCLIA [id number] [address] [place] LABCLIA [id number] [place] [address] [place] Sodium [Moles/Vol] 135 mmol/L Low 136-144 [facility] Comment on above: Order Comment: Speci men Type: BLOOD SPECIMENOrdering Facility: [facility] Address: [address] [place] [address] Performed By: #### 2 4323-8 ####[facility] MILLTOWNCLIA [id number] [address] [place] LABCLIA [id number] [place] [address] [place] Urea nitrogen [Mass/Vol] 7 mg/dL Normal 7-21 [facility] Comment on above: Order Comment: Speci men Type: BLOOD SPECIMENOrdering Facility: [facility] Address: [address] [place] [address] Performed By: #### 2 4323-8 ####[facility] RIGOBERTO [facility] COMM[facility] HOSPITALLIA [id number] [place] [address] [place] [facility] [place] LABCLIA [id number] [place] [address] [place] MRI PELVIS WO/W IVCONon 07-0 MRI PELVIS WO/W IVCON Normal [facility] 25(OH)D3 SerPl-mCncon 2024 25-hydroxyvitamin D3 [Mass/Vol] 33.8 ng/mL Normal 31.0-80.0 [facility] Comment on above: Order Comment: Speci men Type: BLOOD SPECIMENOrdering Facility: External Submitter Address: , , Result Comment: Clas sification of 25 [place] Vitamin D status:Deficiency/Insufficiency: < or = 30 ng/ml.Sufficiency/Optimal Levels: 31-80 ng/mLToxicity: > 100 ng/mL.Test performed by chemiluminescent immunoassay. Performed By: #### 1 989-3 ####[facility] LABCLIA [id number] [address] [place] CBC W Auto Differential pane l (Bld)on 01-14-2025 Basophils (Bld) [#/Vol] 0.05 10*3/uL [facility] Basophils/100 WBC (Bld) 1 % [facility] Differential cell count method Nom (Bld) Auto [facility] Eosinophils (Bld) [#/Vol] 0.12 10*3/uL [facility] Eosinophils/100 WBC (Bld) 2.5 % [facility] Erythrocyte distribution width (RBC) [Ratio] 15.8 % High 11.5 - 15.0 % [facility] Hematocrit (Bld) [Volume fraction] 35.3 % Low 36.0 - 46.0 % [facility] Hemoglobin (Bld) [Mass/Vol] 11.3 g/dL Low 11.5 - 15.5 g/dL [facility] Immature granulocytes (Bld) [#/Vol] 0.03 10*3/uL [facility] Immature granulocytes/100 WBC (Bld) 0.6 % [facility] Interpretation and review of laboratory results Abnormal [facility] Lymphocytes (Bld) [#/Vol] 0.41 10*3/uL Low [facility] Lymphocytes/100 WBC (Bld) 8.4 % [facility] MCH (RBC) [Entitic mass] 29.1 pg 26.0 - 34.0 pg [facility] MCHC (RBC) [Mass/Vol] 32 g/dL 30.5 - 36.0 g/dL [facility] MCV (RBC) [Entitic vol] 91 fL 80.0 - 100.0 fL [facility] Monocytes (Bld) [#/Vol] 0.64 10*3/uL [facility] Monocytes/100 WBC (Bld) 13.2 % [facility] Neutrophils (Bld) [#/Vol] 3.61 10*3/uL [facility] Neutrophils/100 WBC (Bld) 74.3 % [facility] Nucleated RBC (Bld) [#/Vol] [facility] Nucleated RBC/100 WBC (Bld) [Ratio] 0 % /100 WBC [facility] Platelet mean volume (Bld) [Entitic vol] 10.2 fL 9.0 - 12.7 fL [facility] Platelets (Bld) [#/Vol] 213 10*3/uL [facility] RBC (Bld) [#/Vol] 3.88 10*6/uL Low 3.90 - 5.2 0 m/uL [facility] WBC (Bld) [#/Vol] 4.86 10*3/uL [facility] Basophils (Bld) [#/Vol] 0.05 10*3/uL Normal <0.11 [facility] Comment on above: Order Comment: Speci men Type: BLOOD SPECIMENOrdering Facility: External Submitter Address: , , Performed By: #### 5 7021-8 ####[facility] [id number] [place] [address] [place] Basophils/100 WBC (Bld) 1.0 % Normal [facility] Comment on above: Order Comment: Speci men Type: BLOOD SPECIMENOrdering Facility: External Submitter Address: , , Performed By: #### 5 7021-8 ####[facility] [id number] [address] [place] Differential cell count method Nom (Bld) Auto Normal [facility] Comment on above: Order Comment: Speci men Type: BLOOD SPECIMENOrdering Facility: External Submitter Address: , , Performed By: #### 5 7021-8 ####[facility] [id number] [place] [address] [place] Eosinophils (Bld) [#/Vol] 0.12 10*3/uL Normal <0.46 [facility] Comment on above: Order Comment: Speci men Type: BLOOD SPECIMENOrdering Facility: External Submitter Address: , , Performed By: #### 5 7021-8 ####[facility] [id number] [address] OF [facility] Eosinophils/100 WBC (Bld) 2.5 % Normal [facility] Comment on above: Order Comment: Speci men Type: BLOOD SPECIMENOrdering Facility: External Submitter Address: , , Performed By: #### 5 7021-8 ####[facility] [id number] [place] [address] [place] Erythrocyte distribution width (RBC) [Ratio] 15.8 % High 11.5-15.0 [facility] Comment on above: Order Comment: Speci men Type: BLOOD SPECIMENOrdering Facility: External Submitter Address: , , Performed By: #### 5 7021-8 ####[facility] [id number] [place] [address] [place] Hematocrit (Bld) [Volume fraction] 35.3 % Low 36.0-46.0 [facility] Comment on above: Order Comment: Speci men Type: BLOOD SPECIMENOrdering Facility: External Submitter Address: , , Performed By: #### 5 7021-8 ####[facility] [id number] [place] [address] [place] Hemoglobin (Bld) [Mass/Vol] 11.3 g/dL Low 11.5-15.5 [facility] Comment on above: Order Comment: Speci men Type: BLOOD SPECIMENOrdering Facility: External Submitter Address: , , Performed By: #### 5 7021-8 ####[facility] [id number] [place] [address] [place] Immature granulocytes (Bld) [#/Vol] 0.03 10*3/uL Normal <0.10 [facility] Comment on above: Order Comment: Speci men Type: BLOOD SPECIMENOrdering Facility: External Submitter Address: , , Performed By: #### 5 7021-8 ####[facility] [id number] [address] [place] Immature granulocytes/100 WBC (Bld) 0.6 % Normal [facility] Comment on above: Order Comment: Speci men Type: BLOOD SPECIMENOrdering Facility: External Submitter Address: , , Performed By: #### 5 7021-8 ####[facility] [id number] [place] [address] [place] Lymphocytes (Bld) [#/Vol] 0.41 10*3/uL Low 1.00-4.00 [facility] Comment on above: Order Comment: Speci men Type: BLOOD SPECIMENOrdering Facility: External Submitter Address: , , Performed By: #### 5 7021-8 ####[facility] [id number] [place] [address] [place] Lymphocytes/100 WBC (Bld) 8.4 % Normal [facility] Comment on above: Order Comment: Speci men Type: BLOOD SPECIMENOrdering Facility: External Submitter Address: , , Performed By: #### 5 7021-8 ####[facility] [id number] [address] MCH (RBC) [Entitic mass] 29.1 pg Normal 26.0-34.0 [facility] Comment on above: Order Comment: Speci men Type: BLOOD SPECIMENOrdering Facility: External Submitter Address: , , Performed By: #### 5 7021-8 ####[facility] [id number] [address] [place] MCHC (RBC) [Mass/Vol] 32.0 g/dL Normal 30.5-36.0 [facility] Comment on above: Order Comment: Speci men Type: BLOOD SPECIMENOrdering Facility: External Submitter Address: , , Performed By: #### 5 7021-8 ####[facility] [id number] [address] [place] MCV (RBC) [Entitic vol] 91.0 fL Normal 80.0-100.[address] [facility] Comment on above: Order Comment: Speci men Type: BLOOD SPECIMENOrdering Facility: External Submitter Address: , , Performed By: #### 5 7021-8 ####[facility] [id number] [address] Monocytes (Bld) [#/Vol] 0.64 10*3/uL Normal <0.87 [facility] Comment on above: Order Comment: Speci men Type: BLOOD SPECIMENOrdering Facility: External Submitter Address: , , Performed By: #### 5 7021-8 ####[facility] ALYSSAALBANYNICOLE [id number] [place] [address] [place] Monocytes/100 WBC (Bld) 13.2 % Normal [facility] Comment on above: Order Comment: Speci men Type: BLOOD SPECIMENOrdering Facility: External Submitter Address: , , Performed By: #### 5 7021-8 ####[facility] [id number] [place] [address] [place] Neutrophils (Bld) [#/Vol] 3.61 10*3/uL Normal 1.45-7.50 [facility] Comment on above: Order Comment: Speci men Type: BLOOD SPECIMENOrdering Facility: External Submitter Address: , , Performed By: #### 5 7021-8 ####[facility] [id number] [address] [place] Neutrophils/100 WBC (Bld) 74.3 % Normal [facility] Comment on above: Order Comment: Speci men Type: BLOOD SPECIMENOrdering Facility: External Submitter Address: , , Performed By: #### 5 7021-8 ####[facility] [id number] [address] [place] Nucleated RBC (Bld) [#/Vol] 10*3/uL Normal <0.01 [facility] Comment on above: Order Comment: Speci men Type: BLOOD SPECIMENOrdering Facility: External Submitter Address: , , Performed By: #### 5 7021-8 ####[facility] [id number] [address] [place] Nucleated RBC/100 WBC (Bld) [Ratio] 0.0 /100 WBC Normal [facility] Comment on above: Order Comment: Speci men Type: BLOOD SPECIMENOrdering Facility: External Submitter Address: , , Performed By: #### 5 7021-8 ####[facility] FLORIDANCTIFFANI [id number] [place] [address] [place] Platelet mean volume (Bld) [Entitic vol] 10.2 fL Normal 9.0-12.7 [facility] Comment on above: Order Comment: Speci men Type: BLOOD SPECIMENOrdering Facility: External Submitter Address: , , Performed By: #### 5 7021-8 ####[facility] CENTERTIFFANI [id number] [place] [address] [place] Platelets (Bld) [#/Vol] 213 10*3/uL Normal 150-400 [facility] Comment on above: Order Comment: Speci men Type: BLOOD SPECIMENOrdering Facility: External Submitter Address: , , Performed By: #### 5 7021-8 ####[facility] [id number] [place] [address] [place] RBC (Bld) [#/Vol] 3.88 10*6/uL Low 3.90-5.20 [facility] Comment on above: Order Comment: Speci men Type: BLOOD SPECIMENOrdering Facility: External Submitter Address: , , Performed By: #### 5 7021-8 ####[facility] [id number] [place] [address] [place] WBC (Bld) [#/Vol] 4.86 10*3/uL Normal 3.70-11.00 [facility] Comment on above: Order Comment: Speci men Type: BLOOD SPECIMENOrdering Facility: External Submitter Address: , , Performed By: #### 5 7021-8 ####[facility] FLORIDANCLI [id number] [place] [address] [place] CRP [facility] 01[facility]-2025 CRP [Mass/Vol] 0.4 mg/dL Normal <0.9 [facility] Comment on above: Order Comment: Speci men Type: BLOOD SPECIMENOrdering Facility: External Submitter Address: , , Performed By: #### 2 132-9, 1987-11 ####[facility] LABCLIA [id number] AMAURYKarol [address] Comprehensive metabolic 2000 panelOrdered By: Cyndie Zhou on 01-14-2025 Albumin [Mass/Vol] 3.7 g/dL Low 3.9 - 4.9 g/dL [facility] ALP [Catalytic activity/Vol] 81 U/L 34 - 123 U/L [facility] ALT [Catalytic activity/Vol] 11 U/L 7 - 38 U/L [facility] Anion gap [Moles/Vol] 11 mmol/L 8 - 15 mmol/L [facility] AST [Catalytic activity/Vol] 20 U/L 13 - 35 U/L [facility] Bilirubin [Mass/Vol] 0.2 mg/dL 0.2 - 1 .3 mg/dL [facility] Calcium [Mass/Vol] 9.1 mg/dL 8.5 - 10. 2 mg/dL [facility] Chloride [Moles/Vol] 102 mmol/L 98 - 10 7 mmol/L [facility] CO2 [Moles/Vol] 21 mmol/L Low 22 - 30 mmol/L [facility] Creatinine [Mass/Vol] 0.59 mg/dL 0.58 - 0.96 mg/dL [facility] GFR/1.73 sq M.predicted among non-blacks MDRD (S/P/Bld) [Vol rate/Area] 100 mL/min/{1.73_m2} - PINF [facility] Comment on above: Estimated Glomerular Filtration [...] 106 mg/dL High 74 - 99 mg/dL [facility] Comment on above: The [place] Diabete s Association (ADA) provides guidance for [...] Standards of Medical Care in Diabetes 2016, [place] Diabetes Association. Diabetes Care. 2016.39(Suppl 1). Interpretation and review of laboratory results Abnormal [facility] Potassium [Moles/Vol] 4.2 mmol/L 3.7 - 5.1 mmol/L [facility] Protein [Mass/Vol] 6.1 g/dL Low 6.3 - 8.0 g/dL [facility] Sodium [Moles/Vol] 134 mmol/L Low 136 - 144 mmol/L [facility] Urea nitrogen [Mass/Vol] 9 mg/dL 7 - 21 mg/dL [facility] Comprehensive metabolic 2000 panelon 01-14-2025 Albumin [Mass/Vol] 3.7 g/dL Low 3.9-4.9 [facility] Comment on above: Order Comment: Mindy mcfarlane Type: BLOOD SPECIMENOrdering Facility: External Submitter Address: , , Performed By: #### 2 4323-8 ####[facility] [id number] [place] [address] [place] ALP [Catalytic activity/Vol] 81 U/L Normal 34-123 [facility] Comment on above: Order Comment: Mindy mcfarlane Type: BLOOD SPECIMENOrdering Facility: External Submitter Address: , , Performed By: #### 2 4323-8 ####[facility] [id number] [place] [address] [place] ALT [Catalytic activity/Vol] 11 U/L Normal 7-38 [facility] Comment on above: Order Comment: Mindy mcfarlane Type: BLOOD SPECIMENOrdering Facility: External Submitter Address: , , Performed By: #### 2 4323-8 ####[facility]IA [id number] [place] [address] [place] Anion gap [Moles/Vol] 11 mmol/L Normal 8-15 [facility] Comment on above: Order Comment: Speci men Type: BLOOD SPECIMENOrdering Facility: External Submitter Address: , , Performed By: #### 2 4323-8 ####[facility] [id number] [place] [address] [place] AST [Catalytic activity/Vol] 20 U/L Normal 13-35 [facility] Comment on above: Order Comment: Speci men Type: BLOOD SPECIMENOrdering Facility: External Submitter Address: , , Performed By: #### 2 4323-8 ####[facility] [id number] [place] [address] [place] Bilirubin [Mass/Vol] 0.2 mg/dL Normal 0.2-1.3 [facility] Comment on above: Order Comment: Speci men Type: BLOOD SPECIMENOrdering Facility: External Submitter Address: , , Performed By: #### 2 4323-8 ####[facility] [id number] [place] [address] [place] Calcium [Mass/Vol] 9.1 mg/dL Normal 8.5-10.2 [facility] Comment on above: Order Comment: Speci men Type: BLOOD SPECIMENOrdering Facility: External Submitter Address: , , Performed By: #### 2 4323-8 ####[facility] [id number] [place] [address] [place] Chloride [Moles/Vol] 102 mmol/L Normal 98-107 [facility] Comment on above: Order Comment: Speci men Type: BLOOD SPECIMENOrdering Facility: External Submitter Address: , , Performed By: #### 2 4323-8 ####[facility] [id number] [place] [address] [place] CO2 [Moles/Vol] 21 mmol/L Low 22-30 [facility] Comment on above: Order Comment: Speci men Type: BLOOD SPECIMENOrdering Facility: External Submitter Address: , , Performed By: #### 2 4323-8 ####[facility] [id number] [address] [place] Creatinine [Mass/Vol] 0.59 mg/dL Normal 0.58-0.96 [facility] Comment on above: Order Comment: Speci men Type: BLOOD SPECIMENOrdering Facility: External Submitter Address: , , Performed By: #### 2 4323-8 ####[facility] [id number] [address] Creatinine and Glomerular filtration rate.predicted panel (S/P/Bld) 100 mL/min/1.73m??? Normal >=60 [facility] Comment on above: Order Comment: Speci men [...] actual GFR. Performed By: #### 2 4323-8 ####[facility] [id number] [place] [address] [place] Glucose [Mass/Vol] 106 mg/dL High 74-99 [facility] Comment on above: Order Comment: Speci men Type: BLOOD SPECIMENOrdering Facility: External Submitter Address: , , Result Comment: The [place] Diabetes Association (ADA) provides guidance for cutoff [...] Standards of Medical Care in Diabetes 2016, [place] [employer]. Diabetes Care. 2016.39(Suppl 1). Performed By: #### 2 4323-8 ####[facility] [id number] [place] [address] [place] Potassium [Moles/Vol] 4.2 mmol/L Normal 3.7-5.1 [facility] Comment on above: Order Comment: Mnidy mcfarlane Type: BLOOD SPECIMENOrdering Facility: External Submitter Address: , , Performed By: #### 2 4323-8 ####[facility] [id number] [place] [address] [place] Protein [Mass/Vol] 6.1 g/dL Low 6.3-8.0 [facility] Comment on above: Order Comment: Mindy mcfarlane Type: BLOOD SPECIMENOrdering Facility: External Submitter Address: , , Performed By: #### 2 4323-8 ####[facility] CENTERLIA [id number] [place] [address] [place] Sodium [Moles/Vol] 134 mmol/L Low 136-144 [facility] Comment on above: Order Comment: Mindy mcfarlane Type: BLOOD SPECIMENOrdering Facility: External Submitter Address: , , Performed By: #### 2 4323-8 ####[facility] [id number] [place] [id number] [place] Urea nitrogen [Mass/Vol] 9 mg/dL Normal 7-21 [facility] Comment on above: Order Comment: Speci men Type: BLOOD SPECIMENOrdering Facility: External Submitter Address: , , Performed By: #### 2 4323-8 ####[facility] [id number] [place] [id number] [place] [address] [place] Gastroenterology Visit Repor ton 01-14-2025 Gastroenterology Visit Report [facility] Gastroenterology [address] [place] [id number] OFFICE VISIT Date of Service: 01/14/25 MR#: [id number] Acct: [id number] Name: MARIMAR WANG Rep #: [id number] : 1960 Provider: [facility] arriaza Age/Sex: 64/F Location: [facility] Status: Signed Intake Vital Signs 10/30/24 00:58 12/27/24 14:43 01/14/25 08:27 Height 5 ft 2 in 5 ft 2 in 5 ft 2 in Weight: 183 lb BMI 33.5 BP 167/84 H Respiration 20 H Pulse 74 Temp 97.6 F L Temp Source Temporal Pulse Oximetry (%) 96 Oxygen Delivery Method room air Intake Visit Reasons: FU Chief Complaint: Crohn's follow-up Supervisor Electronic Coils Required: No Accompanied by: Self Is patient [...] QHS MENTAL HEALTH 6 01/14/25 History peg 501-yxijmfmdxsgd-vboqgvu n 1 1 drp OP 4X/DAY DRY [...] Constipation 01/14/25 History gram/dose oral powder (Miralax) yrllzb-hyikucze-wvivvnr See Rx Instructions PO .COMPLEX 01/14/25 Rx [...] Q12H 10/24/24 01/14/25 History a dose pack (EliquMibio DVT-PE Treat 30D Start) cholecalciferol (vitamin D3) [...] you fallen in the past year?: No [facility] Medical History 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 Normal [facility] HBV core Ab Ser Qlon 025 HBV core Ab Ql (S) Negative Normal Negative [facility] Comment on above: Order Comment: Speci men Type: BLOOD SPECIMENOrdering Facility: External Submitter Address: , , Result Comment: No e vidence of current or past infection with Hepatitis B virus. Should recent infection be suspected, repeat testing may be considered 3-4 weeks after this draw. Performed By: #### 2 2322-2, 5195-3, 13738-7 ####[facility]PITALIA [id number] [place] [address] [place] HBV surface Ab Ql (S)on 12-27 HBV surface Ab Qn (S) <8.00 Normal [facility] Comment on above: Order Comment: Speci men Type: BLOOD SPECIMENOrdering Facility: External Submitter Address: , , Result Comment: <8 m IU/mL: No serological evidence of immunity to Hepatitis B Virus.>/= 8 to <12 mIU/mL: No serological evidence of immunity to Hepatitis B Virus.>/= 12 mIU/mL: Consistent with serological evidence of immunity to Hepatitis B Virus. Performed By: #### 2 2322-2, 5195-3, 09530-5 ####[facility] LABIA [id number] [place] [address] [place] HBV surface Ab Ser Qlon 12-27 HBV surface Ab Ql (S) Negative Normal [facility] Comment on above: Order Comment: Speci men Type: BLOOD SPECIMENOrdering Facility: External Submitter Address: , , Result Comment: No s erological evidence of immunity to Hepatitis B Virus. Performed By: #### 2 2322-2, 5195-3, 77252-4 ####[facility] LABIA [id number] [place] [id number] [facility] [place] HBV surface Ag Ser Qlon 12-27 HBV surface Ag Ql (S) Negative Normal Negative [facility] Comment on above: Order Comment: Speci men Type: BLOOD SPECIMENOrdering Facility: External Submitter Address: , , Performed By: #### 2 2322-2, 5195-3, 65721-3 ####[facility] LABCLIA [id number] [place] [id number] [place] Vit B12 SerPl-mCncon 025 Cobalamin (Vitamin B12) [Mass/Vol] 1301 pg/mL High 232-1245 [facility] Comment on above: Order Comment: Speci men Type: BLOOD SPECIMENOrdering Facility: External Submitter Address: , , Performed By: #### 2 132-9, 1987-11 ####[facility] LABCLIA [id number] [place] [id number] [facility] OF [place] CNPNon 01-05-2025 CNPN Normal [facility] Emergency Department Summary on 12-27-2024 Emergency Department Summary [facility] Medical Records Department [address] [place] [address] Emergency Department Summary 12/27/24 MR#: [id number] Acct: [id number] Name: MARIMAR WANG Rep #: [id number] : 1960 64 From: Woo Thapa MD [...] injury. She has no fever or chills. [facility] Medical History Squamous cell cancer [...] QHS MENTAL HEALTH 6 09/01/24 History peg 610-lodlhrofjshw-sbmrciz n 1 1 drp OP 4X/DAY DRY [...] Constipation Unknown History gram/dose oral powder (Miralax) zvwojp-fpqaqono-ljqwowp See Rx Instructions PO .COMPLEX 09/01/24 Rx [...] HCl 1 (more content not included)... Normal [facility] Pelvis without IV Contraston 12-27-2024 Pelvis without IV Contrast [facility] Imaging Services [address] [place] [address] Pelvis without IV Contrast MR#: [id number] Acct: [id number] Name: MARIMAR WANG Rep #: [id number] : 1960 F 64 From: Pablo Mendoza MD PCP: [facility] Arriola Status: REG ER Study: Pelvis without IV Contrast Date of Exam: 12/27 Exam# [id number] Ordering Dr: Ekaterina Wadsworth PROCEDURE: PELVIS WITHOUT [...] Contrast IMPRESSION: No acute abnormalities. Reading Location: [id number] CC: [facility] Arriaga; CY Arcos Melt Supervisor: Signed [facility] 12-11-2024 [facility] 12-04-2024 [facility] Telephone (RHBATH) -------- MARIMAR WANG ([id number]) 1960 F Date Time Provider Department 12/04/24 [...] Date Reviewed: 11/30/2024 Reviewed by: Delvin Ron APRN.QUAL FIELD MANAGER - Fully Assessed Reason for Visit: Patient [...] by mouth two times a day. - hldkcmewtkHDFUZ-uadqjn-j idocaine (BMX 1:1:1) 1:1:1 liqd Take 10 [...] 80 mg by mouth once daily. - ifmyoc-gwzahjts-uqgxyei (CREON 36) 36,000-114,000- 180,000 unit delayed release [...] of Breath (more content not included)... Normal [facility] CBC W/Diff, Automatedon PATH REV N/A Normal [facility] Comment on above: Result Comment: Path ology review canceled due to updated review criteria. AMENDED REPORT 12/03/24 1202 PATH REV previously reported as: November Performed By: #### L 100.0100, L500.2500 #### [facility] Laboratory [facility] [place] [address] [place], [address] CBC W Auto Differential pane l (Bld)on 11-30-2024 Basophils (Bld) [#/Vol] 0.07 10*3/uL [facility] Basophils/100 WBC (Bld) 1.5 % [facility] Differential cell count method Nom (Bld) Auto [facility] Eosinophils (Bld) [#/Vol] 0.18 10*3/uL [facility] Eosinophils/100 WBC (Bld) 3.8 % [facility] Erythrocyte distribution width (RBC) [Ratio] 20.7 % High 11.5 - 15.0 % [facility] Hematocrit (Bld) [Volume fraction] 35 % Low 36.0 - 46.0 % [facility] Hemoglobin (Bld) [Mass/Vol] 11.2 g/dL Low 11.5 - 15.5 g/dL [facility] Immature granulocytes (Bld) [#/Vol] 0.03 10*3/uL [facility] Immature granulocytes/100 WBC (Bld) 0.6 % [facility] Interpretation and review of laboratory results Abnormal [facility] Lymphocytes (Bld) [#/Vol] 0.24 10*3/uL Low [facility] Lymphocytes/100 WBC (Bld) 5 % [facility] MCH (RBC) [Entitic mass] 28.9 pg 26.0 - 34.0 pg [facility] MCHC (RBC) [Mass/Vol] 32 g/dL 30.5 - 36.0 g/dL [facility] MCV (RBC) [Entitic vol] 90.2 fL 80.0 - 100.0 fL [facility] Monocytes (Bld) [#/Vol] 0.63 10*3/uL [facility] Monocytes/100 WBC (Bld) 13.1 % [facility] Neutrophils (Bld) [#/Vol] 3.65 10*3/uL [facility] Neutrophils/100 WBC (Bld) 76 % [facility] Nucleated RBC (Bld) [#/Vol] [facility] Nucleated RBC/100 WBC (Bld) [Ratio] 0 % /100 WBC [facility] Platelet mean volume (Bld) [Entitic vol] 10 fL 9.0 - 12.7 fL [facility] Platelets (Bld) [#/Vol] 194 10*3/uL [facility] RBC (Bld) [#/Vol] 3.88 10*6/uL Low 3.90 - 5.2 0 m/uL [facility] WBC (Bld) [#/Vol] 4.8 10*3/uL [facility] Basophils (Bld) [#/Vol] 0.07 10*3/uL Normal <0.11 [facility] Comment on above: Order Comment: Speci men Type: BLOOD SPECIMENOrdering Facility: [facility] Address: [address] [place] [address] Performed By: #### 5 7021-8 ####[facility] [id number] [address] [place] Basophils/100 WBC (Bld) 1.5 % Normal [facility] Comment on above: Order Comment: Speci men Type: BLOOD SPECIMENOrdering Facility: [facility] Address: [address] [place] [address] Performed By: #### 5 7021-8 ####[facility] FLORIDAZEVLIA [id number] [place] [address] [place] Differential cell count method Nom (Bld) Auto Normal [facility] Comment on above: Order Comment: Speci men Type: BLOOD SPECIMENOrdering Facility: [facility] Address: [address] [place] [address] Performed By: #### 5 7021-8 ####[facility] FLORIDAZEVA [id number] [place] [address] [place] Eosinophils (Bld) [#/Vol] 0.18 10*3/uL Normal <0.46 [facility] Comment on above: Order Comment: Speci men Type: BLOOD SPECIMENOrdering Facility: [facility] Address: [address] [place] [address] Performed By: #### 5 7021-8 ####[facility]ITAL[facility] [id number] [place] [address] [place] Eosinophils/100 WBC (Bld) 3.8 % Normal [facility] Comment on above: Order Comment: Speci men Type: BLOOD SPECIMENOrdering Facility: [facility] Address: [address] [place] [address] Performed By: #### 5 7021-8 ####[facility] FLORIDANCA [id number] [place] [address] [place] Erythrocyte distribution width (RBC) [Ratio] 20.7 % High 11.5-15.0 [facility] Comment on above: Order Comment: Speci men Type: BLOOD SPECIMENOrdering Facility: [facility] Address: [address] [place] [address] Performed By: #### 5 7021-8 ####[facility] SHALONDAWNCLIA [id number] [place] [address] [place] Hematocrit (Bld) [Volume fraction] 35.0 % Low 36.0-46.0 [facility] Comment on above: Order Comment: Speci men Type: BLOOD SPECIMENOrdering Facility: [facility] Address: [address] [place] [address] Performed By: #### 5 7021-8 ####[facility]ENTERLIA [id number] [place] [address] [place] Hemoglobin (Bld) [Mass/Vol] 11.2 g/dL Low 11.5-15.5 [facility] Comment on above: Order Comment: Speci men Type: BLOOD SPECIMENOrdering Facility: [facility] Address: [address] [place] [address] Performed By: #### 5 7021-8 ####[facility] [id number] [place] [address] [place] Immature granulocytes (Bld) [#/Vol] 0.03 10*3/uL Normal <0.10 [facility] Comment on above: Order Comment: Speci men Type: BLOOD SPECIMENOrdering Facility: [facility] Address: [address] [place] [address] Performed By: #### 5 7021-8 ####[facility]ENTERLIA [id number] [place] [address] [place] Immature granulocytes/100 WBC (Bld) 0.6 % Normal [facility] Comment on above: Order Comment: Speci men Type: BLOOD SPECIMENOrdering Facility: [facility] Address: [address] [place] [address] Performed By: #### 5 7021-8 ####[facility] FL[facility]IDANCLI [id number] [place] [address] [place] Lymphocytes (Bld) [#/Vol] 0.24 10*3/uL Low 1.00-4.00 [facility] Comment on above: Order Comment: Speci men Type: BLOOD SPECIMENOrdering Facility: [facility] Address: [address] [place] [address] Performed By: #### 5 7021-8 ####[facility] [id number] [place] [address] [place] Lymphocytes/100 WBC (Bld) 5.0 % Normal [facility] Comment on above: Order Comment: Speci men Type: BLOOD SPECIMENOrdering Facility: [facility] Address: [address] [place] [address] Performed By: #### 5 7021-8 ####[facility] [id number] [place] [address] [place] MCH (RBC) [Entitic mass] 28.9 pg Normal 26.0-34.0 [facility] Comment on above: Order Comment: Speci men Type: BLOOD SPECIMENOrdering Facility: [facility] Address: [address] [place] [address] Performed By: #### 5 7021-8 ####[facility] [id number] [place] [address] [place] MCHC (RBC) [Mass/Vol] 32.0 g/dL Normal 30.5-36.0 [facility] Comment on above: Order Comment: Speci men Type: BLOOD SPECIMENOrdering Facility: [facility] Address: [address] [place] [address] Performed By: #### 5 7021-8 ####[facility] FL[facility]IDANCLI [id number] [place] [address] [place] MCV (RBC) [Entitic vol] 90.2 fL Normal 80.0-100.0 [facility] Comment on above: Order Comment: Speci men Type: BLOOD SPECIMENOrdering Facility: [facility] Address: [address] [place] [address] Performed By: #### 5 7021-8 ####[facility] [id number] [place] [address] [place] Monocytes (Bld) [#/Vol] 0.63 10*3/uL Normal <0.87 [facility] Comment on above: Order Comment: Speci men Type: BLOOD SPECIMENOrdering Facility: [facility] Address: [address] [place] [address] Performed By: #### 5 7021-8 ####[facility] [id number] [place] [address] [place] Monocytes/100 WBC (Bld) 13.1 % Normal [facility] Comment on above: Order Comment: Speci men Type: BLOOD SPECIMENOrdering Facility: [facility] Address: [address] [place] [address] Performed By: #### 5 7021-8 ####[facility] [id number] [place] [address] [place] Neutrophils (Bld) [#/Vol] 3.65 10*3/uL Normal 1.45-7.50 [facility] Comment on above: Order Comment: Speci men Type: BLOOD SPECIMENOrdering Facility: [facility] Address: [address] [place] [address] Performed By: #### 5 7021-8 ####[facility] [id number] [place] [address] [place] Neutrophils/100 WBC (Bld) 76.0 % Normal [facility] Comment on above: Order Comment: Speci men Type: BLOOD SPECIMENOrdering Facility: [facility] Address: [address] [place] [address] Performed By: #### 5 7021-8 ####[facility] FLORIDANCLIA [id number] [place] [address] [place] Nucleated RBC (Bld) [#/Vol] 10*3/uL Normal <0.01 [facility] Comment on above: Order Comment: Speci men Type: BLOOD SPECIMENOrdering Facility: [facility] Address: [address] [place] [address] Performed By: #### 5 7021-8 ####[facility] [id number] [place] [address] [place] Nucleated RBC/100 WBC (Bld) [Ratio] 0.0 /100 WBC Normal [facility] Comment on above: Order Comment: Speci men Type: BLOOD SPECIMENOrdering Facility: [facility] Address: [address] [place] [address] Performed By: #### 5 7021-8 ####[facility] FL[facility]IDANCLIA [id number] [place] [address] [place] Platelet mean volume (Bld) [Entitic vol] 10.0 fL Normal 9.0-12.7 [facility] Comment on above: Order Comment: Speci men Type: BLOOD SPECIMENOrdering Facility: [facility] Address: [address] [place] [address] Performed By: #### 5 7021-8 ####[facility]ENTERLIA [id number] [place] [address] [place] Platelets (Bld) [#/Vol] 194 10*3/uL Normal 150-400 [facility] Comment on above: Order Comment: Speci men Type: BLOOD SPECIMENOrdering Facility: [facility] Address: [address] [place] [address] Performed By: #### 5 7021-8 ####[facility] FL[facility]IDANCLI [id number] [place] [address] [place] RBC (Bld) [#/Vol] 3.88 10*6/uL Low 3.90-5.20 [facility] Comment on above: Order Comment: Speci men Type: BLOOD SPECIMENOrdering Facility: [facility] Address: [address] [place] [address] Performed By: #### 5 7021-8 ####[facility] RIGOBERTO ALYSSAALBANYNCLIA [id number] [place] [address] [place] WBC (Bld) [#/Vol] 4.80 10*3/uL Normal 3.70-11.00 [facility] Comment on above: Order Comment: Speci men Type: BLOOD SPECIMENOrdering Facility: [facility] Address: [address] [place] [address] Performed By: #### 5 7021-8 ####[facility] RIGOBERTO ALYSSAALBANYNCLIA [id number] [place] [address] [place] CNOVSPon 11-30-2024 CNOVSP Normal [facility] CNPNon 11-30-2024 CNPN Telephone (LYN) -------- MARIMAR WANG ([id number]) 1960 F Date Time Provider Department 11/30/24 [...] Date Reviewed: 11/30/2024 Reviewed by: Delvin Ron APRN.QUAL FIELD MANAGER - Fully Assessed Reason for Visit: Appointment [...] by mouth two times a day. - ojupiroetyBAWLM-omjlje-a idocaine (BMX 1:1:1) 1:1:1 liqd Take 10 [...] 80 mg by mouth once daily. - aqylnb-bqhjphqw-mnylxpq (CREON 36) 36,000-114,000- 180,000 unit delayed release [...] of Breat (more content not included)... Normal [facility] CNPN Normal [facility] Comprehensive metabolic 2000 panelOrdered By: Cyndie Zhou on 11-30-2024 Albumin [Mass/Vol] 3.5 g/dL Low 3.9 - 4.9 g/dL [facility] ALP [Catalytic activity/Vol] 73 U/L 34 - 123 U/L [facility] ALT [Catalytic activity/Vol] 10 U/L 7 - 38 U/L [facility] Anion gap [Moles/Vol] 9 mmol/L 8 - 15 mmol/L [facility] AST [Catalytic activity/Vol] 18 U/L 13 - 35 U/L [facility] Bilirubin [Mass/Vol] 0.2 mg/dL 0.2 - 1 .3 mg/dL [facility] Calcium [Mass/Vol] 9.2 mg/dL 8.5 - 10. 2 mg/dL [facility] Chloride [Moles/Vol] 98 mmol/L 98 - 10 7 mmol/L [facility] CO2 [Moles/Vol] 25 mmol/L 22 - 30 mmol/L [facility] Creatinine [Mass/Vol] 0.63 mg/dL 0.58 - 0.96 mg/dL [facility] GFR/1.73 sq M.predicted among non-blacks MDRD (S/P/Bld) [Vol rate/Area] 99 mL/min/{1.73_m2} - PINF [facility] Comment on above: Estimated Glomerular Filtration [...] 104 mg/dL High 74 - 99 mg/dL [facility] Comment on above: The [place] Diabete s Association (ADA) provides guidance for [...] Standards of Medical Care in Diabetes 2016, [place] Diabetes Association. Diabetes Care. 2016.39(Suppl 1). Interpretation and review of laboratory results Abnormal [facility] Potassium [Moles/Vol] 4.4 mmol/L 3.7 - 5.1 mmol/L [facility] Protein [Mass/Vol] 6.4 g/dL 6.3 - 8.0 g/dL [facility] Sodium [Moles/Vol] 132 mmol/L Low 136 - 144 mmol/L [facility] Urea nitrogen [Mass/Vol] 8 mg/dL 7 - 21 mg/dL [facility] Comprehensive metabolic 2000 panelon 11-30-2024 Albumin [Mass/Vol] 3.5 g/dL Low 3.9-4.9 [facility] Comment on above: Order Comment: Speci men Type: BLOOD SPECIMENOrdering Facility: [facility] Address: [address] [place] [address] Performed By: #### 2 4323-8 ####[facility] [id number] [place] [address] [place] ALP [Catalytic activity/Vol] 73 U/L Normal 34-123 [facility] Comment on above: Order Comment: Speci men Type: BLOOD SPECIMENOrdering Facility: [facility] Address: [address] [place], [place] [address] Performed By: #### 2 4323-8 ####[facility]ENTERLI [id number] [place] [address] [place] ALT [Catalytic activity/Vol] 10 U/L Normal 7-38 [facility] Comment on above: Order Comment: Speci men Type: BLOOD SPECIMENOrdering Facility: [facility] Address: [address] [place] [address] Performed By: #### 2 4323-8 ####[facility] RIGOBERTO MILLTOWNCLIA [id number] [place] [address] [place] Anion gap [Moles/Vol] 9 mmol/L Normal 8-15 [facility] Comment on above: Order Comment: Speci men Type: BLOOD SPECIMENOrdering Facility: [facility] Address: [address] [place] [address] Performed By: #### 2 4323-8 ####[facility]WNCL[facility] [id number] [place] [address] [place] AST [Catalytic activity/Vol] 18 U/L Normal 13-35 [facility] Comment on above: Order Comment: Speci men Type: BLOOD SPECIMENOrdering Facility: [facility] Address: [address] [place] [address] Performed By: #### 2 4323-8 ####[facility] FLORIDANCLIA [id number] [place] [address] [place] Bilirubin [Mass/Vol] 0.2 mg/dL Normal 0.2-1.3 [facility] Comment on above: Order Comment: Speci men Type: BLOOD SPECIMENOrdering Facility: [facility] Address: [address] [place] [address] Performed By: #### 2 4323-8 ####[facility] MILLWNCLIA [id number] [place] [address] [place] Calcium [Mass/Vol] 9.2 mg/dL Normal 8.5-10.2 [facility] Comment on above: Order Comment: Speci men Type: BLOOD SPECIMENOrdering Facility: [facility] Address: [address] [place] [address] Performed By: #### 2 4323-8 ####[facility] ALYSSAJamirNCTIFFANIA [id number] [place] [address] [place] Chloride [Moles/Vol] 98 mmol/L Normal 98-107 [facility] Comment on above: Order Comment: Speci men Type: BLOOD SPECIMENOrdering Facility: [facility] Address: [address] [place] [address] Performed By: #### 2 4323-8 ####[facility] FLORIDANCA [id number] [place] [address] [place] CO2 [Moles/Vol] 25 mmol/L Normal 22-30 [facility] Comment on above: Order Comment: Speci men Type: BLOOD SPECIMENOrdering Facility: [facility] Address: [address] [place] [address] Performed By: #### 2 4323-8 ####[facility] FLORIDANCLIA [id number] [place] [address] [place] Creatinine [Mass/Vol] 0.63 mg/dL Normal 0.58-0.96 [facility] Comment on above: Order Comment: Speci men Type: BLOOD SPECIMENOrdering Facility: [facility] Address: [address] [place] [address] Performed By: #### 2 4323-8 ####[facility] FLORIDANCLIA [id number] [place] [address] [place] Creatinine and Glomerular filtration rate.predicted panel (S/P/Bld) 99 mL/min/1.73m??? Normal >=60 [facility] Comment on above: Order Comment: Speci men Type: BLOOD SPECIMENOrdering Facility: [facility] Address: [address] [place] [address] Result Comment: Sonia mated Glomerular Filtration Rate [...] actual GFR. Performed By: #### 2 4323-8 ####[facility] [id number] [place] [address] [place] Glucose [Mass/Vol] 104 mg/dL High 74-99 [facility] Comment on above: Order Comment: Mindy mcfarlane Type: BLOOD SPECIMENOrdering Facility: [facility] Address: [address] [place] [address] Result Comment: The [place] Diabetes Association (ADA) provides guidance for cutoff [...] Standards of Medical Care in Diabetes 2016, [place] Diabetes Association. Diabetes Care. 2016.39(Suppl 1). Performed By: #### 2 4323-8 ####[facility]ITALA [id number] [place] [address] [place] Potassium [Moles/Vol] 4.4 mmol/L Normal 3.7-5.1 [facility] Comment on above: Order Comment: Mindy mcfarlane Type: BLOOD SPECIMENOrdering Facility: [facility] Address: [address] [place] [address] Performed By: #### 2 4323-8 ####[facility] [id number] [place] [address] [place] Protein [Mass/Vol] 6.4 g/dL Normal 6.3-8.0 [facility] Comment on above: Order Comment: Speci men Type: BLOOD SPECIMENOrdering Facility: [facility] Address: [address] [place] [address] Performed By: #### 2 4323-8 ####[facility] FLORIDAHAMLETA [id number] [place] [address] [place] Sodium [Moles/Vol] 132 mmol/L Low 136-144 [facility] Comment on above: Order Comment: Speci men Type: BLOOD SPECIMENOrdering Facility: [facility] Address: [address] [place] [address] Performed By: #### 2 4323-8 ####[facility] FLORIDAZEVFroy [id number] [place] [address] [place] Urea nitrogen [Mass/Vol] 8 mg/dL Normal 7-21 [facility] Comment on above: Order Comment: Speci men Type: BLOOD SPECIMENOrdering Facility: [facility] Address: [address] [place] [address] Performed By: #### 2 4323-8 ####[facility] FLORIDANCLIA [id number] [place] [address] [place] CBC W Auto Differential pane l (Bld)on 11-23-2024 Basophils (Bld) [#/Vol] 0.08 10*3/uL Normal <0.11 [facility] Comment on above: Order Comment: Speci men Type: BLOOD SPECIMENOrdering Facility: [facility] Address: [address] [place] [address] Performed By: #### 5 7021-8 ####[facility] CENTERLIA [id number] [place] [address] [place] Basophils/100 WBC (Bld) 2.1 % Normal [facility] Comment on above: Order Comment: Speci men Type: BLOOD SPECIMENOrdering Facility: [facility] Address: [address] [place] [address] Performed By: #### 5 7021-8 ####[facility] FLORIDAHAMLET [id number] [place] [address] [place] Differential cell count method Nom (Bld) Auto Normal [facility] Comment on above: Order Comment: Speci men Type: BLOOD SPECIMENOrdering Facility: [facility] Address: [address] [place] [address] Performed By: #### 5 7021-8 ####[facility] [id number] [place] [address] [place] Eosinophils (Bld) [#/Vol] 0.07 10*3/uL Normal <0.46 [facility] Comment on above: Order Comment: Speci men Type: BLOOD SPECIMENOrdering Facility: [facility] Address: [address] [place] [address] Performed By: #### 5 7021-8 ####[facility] [id number] [place] [address] [place] Eosinophils/100 WBC (Bld) 1.8 % Normal [facility] Comment on above: Order Comment: Speci men Type: BLOOD SPECIMENOrdering Facility: [facility] Address: [address] [place] [address] Performed By: #### 5 7021-8 ####[facility] [id number] [place] [address] [place] Erythrocyte distribution width (RBC) [Ratio] 21.4 % High 11.5-15.0 [facility] Comment on above: Order Comment: Speci men Type: BLOOD SPECIMENOrdering Facility: [facility] Address: [address] [place] [address] Performed By: #### 5 7021-8 ####[facility] FLORIDANCLIA [id number] [place] [address] [place] Hematocrit (Bld) [Volume fraction] 33.5 % Low 36.0-46.0 [facility] Comment on above: Order Comment: Speci men Type: BLOOD SPECIMENOrdering Facility: [facility] Address: [address] [place] [address] Performed By: #### 5 7021-8 ####[facility] CENTERTIFFANIA [id number] [place] [address] [place] Hemoglobin (Bld) [Mass/Vol] 10.8 g/dL Low 11.5-15.5 [facility] Comment on above: Order Comment: Speci men Type: BLOOD SPECIMENOrdering Facility: [facility] Address: [address] [place] [address] Performed By: #### 5 7021-8 ####[facility] [id number] [place] [address] [place] Immature granulocytes (Bld) [#/Vol] 0.06 10*3/uL Normal <0.10 [facility] Comment on above: Order Comment: Speci men Type: BLOOD SPECIMENOrdering Facility: [facility] Address: [address] [place] [address] Performed By: #### 5 7021-8 ####[facility] CENTERLIA [id number] [place] [address] [place] Immature granulocytes/100 WBC (Bld) 1.6 % Normal [facility] Comment on above: Order Comment: Speci men Type: BLOOD SPECIMENOrdering Facility: [facility] Address: [address] [place] [address] Performed By: #### 5 7021-8 ####[facility] FLORIDANCLIA [id number] [place] [address] [place] Lymphocytes (Bld) [#/Vol] 0.21 10*3/uL Low 1.00-4.00 [facility] Comment on above: Order Comment: Speci men Type: BLOOD SPECIMENOrdering Facility: [facility] Address: [address] [place] [address] Performed By: #### 5 7021-8 ####[facility] [id number] [address] [place] Lymphocytes/100 WBC (Bld) 5.5 % Normal [facility] Comment on above: Order Comment: Speci men Type: BLOOD SPECIMENOrdering Facility: [facility] Address: [address] [place] [address] Performed By: #### 5 7021-8 ####[facility]IDANCDEL[facility] [id number] [place] [address] [place] MCH (RBC) [Entitic mass] 28.6 pg Normal 26.0-34.0 [facility] Comment on above: Order Comment: Speci men Type: BLOOD SPECIMENOrdering Facility: [facility] Address: [address] [place] [address] Performed By: #### 5 7021-8 ####[facility] [id number] [place] [address] [place] MCHC (RBC) [Mass/Vol] 32.2 g/dL Normal 30.5-36.0 [facility] Comment on above: Order Comment: Speci men Type: BLOOD SPECIMENOrdering Facility: [facility] Address: [address] [place] [address] Performed By: #### 5 7021-8 ####[facility] FLORIDANCLI [id number] [address] [place] MCV (RBC) [Entitic vol] 88.9 fL Normal 80.0-100.[address] [facility] Comment on above: Order Comment: Speci men Type: BLOOD SPECIMENOrdering Facility: [facility] Address: [address] [place] [address] Performed By: #### 5 7021-8 ####[facility] ALYSSAJAZMYN [id number] [place] [address] [place] Monocytes (Bld) [#/Vol] 0.62 10*3/uL Normal <0.87 [facility] Comment on above: Order Comment: Speci men Type: BLOOD SPECIMENOrdering Facility: [facility] Address: [address] [place] [address] Performed By: #### 5 7021-8 ####[facility]PITALA [id number] [place] [address] [place] Monocytes/100 WBC (Bld) 16.2 % Normal [facility] Comment on above: Order Comment: Speci men Type: BLOOD SPECIMENOrdering Facility: [facility] Address: [address] [place] [address] Performed By: #### 5 7021-8 ####[facility] [id number] [place] [address] [place] Neutrophils (Bld) [#/Vol] 2.78 10*3/uL Normal 1.45-7.50 [facility] Comment on above: Order Comment: Speci men Type: BLOOD SPECIMENOrdering Facility: [facility] Address: [address] [place] [address] Performed By: #### 5 7021-8 ####[facility] CENTERLIA [id number] [place] [address] [place] Neutrophils/100 WBC (Bld) 72.8 % Normal [facility] Comment on above: Order Comment: Speci men Type: BLOOD SPECIMENOrdering Facility: [facility] Address: [address] [place] [address] Performed By: #### 5 7021-8 ####[facility] FLORIDANCLIA [id number] [place] [address] [place] Nucleated RBC (Bld) [#/Vol] 10*3/uL Normal <0.01 [facility] Comment on above: Order Comment: Speci men Type: BLOOD SPECIMENOrdering Facility: [facility] Address: [address] [place] [address] Performed By: #### 5 7021-8 ####[facility] [id number] [place] [address] [place] Nucleated RBC/100 WBC (Bld) [Ratio] 0.0 /100 WBC Normal [facility] Comment on above: Order Comment: Speci men Type: BLOOD SPECIMENOrdering Facility: [facility] Address: [address] [place] [address] Performed By: #### 5 7021-8 ####[facility] [id number] [place] [address] [place] Platelet mean volume (Bld) [Entitic vol] 9.9 fL Normal 9.0-12.7 [facility] Comment on above: Order Comment: Speci men Type: BLOOD SPECIMENOrdering Facility: [facility] Address: [address] [place] [address] Performed By: #### 5 7021-8 ####[facility]OSPITALA [id number] [place] [address] [place] Platelets (Bld) [#/Vol] 210 10*3/uL Normal 150-400 [facility] Comment on above: Order Comment: Speci men Type: BLOOD SPECIMENOrdering Facility: [facility] Address: [address] [place] [address] Performed By: #### 5 7021-8 ####[facility] [id number] [place] [id number] [place] RBC (Bld) [#/Vol] 3.77 10*6/uL Low 3.90-5.20 [facility] Comment on above: Order Comment: Speci men Type: BLOOD SPECIMENOrdering Facility: [facility] Address: [address] [place] [address] Performed By: #### 5 7021-8 ####[facility] ALYSSAJAZMYN [id number] [place] [address] [place] WBC (Bld) [#/Vol] 3.82 10*3/uL Normal 3.70-11.00 [facility] Comment on above: Order Comment: Speci men Type: BLOOD SPECIMENOrdering Facility: [facility] Address: [address] [place] [address] Performed By: #### 5 7021-8 ####[facility] FLORIDANICOLE [id number] [place] [address] [place] Comprehensive metabolic 2000 panelon 11-23-2024 Albumin [Mass/Vol] 3.6 g/dL Low 3.9-4.9 [facility] Comment on above: Order Comment: Speci men Type: BLOOD SPECIMENOrdering Facility: [facility] Address: [address] [place] [address] Performed By: #### 2 4323-8 ####[facility] HOSPITALJAZMYN [id number] [place] [address] [place] ALP [Catalytic activity/Vol] 68 U/L Normal 34-123 [facility] Comment on above: Order Comment: Speci men Type: BLOOD SPECIMENOrdering Facility: [facility] Address: [address] [place] [address] Performed By: #### 2 4323-8 ####[facility] HOSPITALWNCLIA [id number] [place] [address] [place] ALT [Catalytic activity/Vol] 11 U/L Normal 7-38 [facility] Comment on above: Order Comment: Speci men Type: BLOOD SPECIMENOrdering Facility: [facility] Address: [address] [place] [address] Performed By: #### 2 4323-8 ####[facility]ITALWNCLIA [id number] [place] [address] [place] Anion gap [Moles/Vol] 9 mmol/L Normal 8-15 [facility] Comment on above: Order Comment: Speci men Type: BLOOD SPECIMENOrdering Facility: [facility] Address: [address] [place] [address] Performed By: #### 2 4323-8 ####[facility] FLORIDANCLIA [id number] [place] [address] [place] AST [Catalytic activity/Vol] 17 U/L Normal 13-35 [facility] Comment on above: Order Comment: Speci men Type: BLOOD SPECIMENOrdering Facility: [facility] Address: [address] [place] [address] Performed By: #### 2 4323-8 ####[facility]ITALA [id number] [place] [address] [place] Bilirubin [Mass/Vol] 0.2 mg/dL Normal 0.2-1.3 [facility] Comment on above: Order Comment: Speci men Type: BLOOD SPECIMENOrdering Facility: [facility] Address: [address] [place] [address] Performed By: #### 2 4323-8 ####[facility] FLORIDANCLIA [id number] [place] [address] [place] Calcium [Mass/Vol] 9.2 mg/dL Normal 8.5-10.2 [facility] Comment on above: Order Comment: Speci men Type: BLOOD SPECIMENOrdering Facility: [facility] Address: [address] [place] [address] Performed By: #### 2 4323-8 ####[facility] MILLTOWNCLIA [id number] [place] [address] [place] Chloride [Moles/Vol] 99 mmol/L Normal 98-107 [facility] Comment on above: Order Comment: Speci men Type: BLOOD SPECIMENOrdering Facility: [facility] Address: [address] [place] [address] Performed By: #### 2 4323-8 ####[facility] CENTERLIA [id number] [place] [address] [place] CO2 [Moles/Vol] 25 mmol/L Normal 22-30 [facility] Comment on above: Order Comment: Speci men Type: BLOOD SPECIMENOrdering Facility: [facility] Address: [address] [place] [address] Performed By: #### 2 4323-8 ####[facility] CENTERLIA [id number] [place] [address] [place] Creatinine [Mass/Vol] 0.60 mg/dL Normal 0.58-0.96 [facility] Comment on above: Order Comment: Speci men Type: BLOOD SPECIMENOrdering Facility: [facility] Address: [address] [place] [address] Performed By: #### 2 4323-8 ####[facility] CENTERLIA [id number] [address] Creatinine and Glomerular filtration rate.predicted panel (S/P/Bld) 100 mL/min/1.73m??? Normal >=60 [facility] Comment on above: Order Comment: Speci men Type: BLOOD SPECIMENOrdering Facility: [facility] Address: [address] [place] [address] Result Comment: Sonia mated Glomerular Filtration Rate [...] actual GFR. Performed By: #### 2 4323-8 ####[facility] HOSPITALWZEVLIFroy [id number] [place] [address] [place] Glucose [Mass/Vol] 99 mg/dL Normal 74-99 [facility] Comment on above: Order Comment: Speci men Type: BLOOD SPECIMENOrdering Facility: [facility] Address: [address] [place] [id number] Result Comment: The [place] [employer] (ADA) provides guidance for cutoff [...] Standards of Medical Care in Diabetes 2016, [place] [employer]. Diabetes Care. 2016.39(Suppl 1). Performed By: #### 2 4323-8 ####[facility]PITALA [id number] [place] [address] [place] Potassium [Moles/Vol] 4.1 mmol/L Normal 3.7-5.1 [facility] Comment on above: Order Comment: Speci men Type: BLOOD SPECIMENOrdering Facility: [facility] Address: [address] [place] [address] Performed By: #### 2 4323-8 ####[facility] FLORIDANCLIA [id number] [place] [address] [place] Protein [Mass/Vol] 6.4 g/dL Normal 6.3-8.0 [facility] Comment on above: Order Comment: Speci men Type: BLOOD SPECIMENOrdering Facility: [facility] Address: [address] [place] [address] Performed By: #### 2 4323-8 ####[facility] HOSPITALWILLIA [id number] [place] [address] [place] Sodium [Moles/Vol] 133 mmol/L Low 136-144 [facility] Comment on above: Order Comment: Speci men Type: BLOOD SPECIMENOrdering Facility: [facility] Address: [address] [place] [address] Performed By: #### 2 4323-8 ####[facility] CENTERLIA [id number] [place] [address] [place] Urea nitrogen [Mass/Vol] 5 mg/dL Low 7-21 [facility] Comment on above: Order Comment: Speci men Type: BLOOD SPECIMENOrdering Facility: [facility] Address: [address] [place] [address] Performed By: #### 2 4323-8 ####[facility]PITALA [id number] [place] [address] [place] CNPNon 11-19-2024 CNPN Normal [facility] CBC W Auto Differential pane l (Bld)on 11-16-2024 Basophils (Bld) [#/Vol] 0.05 10*3/uL [facility] Basophils/100 WBC (Bld) 1.1 % [facility] Differential cell count method Nom (Bld) Auto [facility] Eosinophils (Bld) [#/Vol] 0.16 10*3/uL [facility] Eosinophils/100 WBC (Bld) 3.4 % [facility] Erythrocyte distribution width (RBC) [Ratio] 21.2 % High 11.5 - 15.0 % [facility] Hematocrit (Bld) [Volume fraction] 31.9 % Low 36.0 - 46.0 % [facility] Hemoglobin (Bld) [Mass/Vol] 10.2 g/dL Low 11.5 - 15.5 g/dL [facility] Immature granulocytes (Bld) [#/Vol] 0.03 10*3/uL [facility] Immature granulocytes/100 WBC (Bld) 0.6 % [facility] Interpretation and review of laboratory results Abnormal [facility] Lymphocytes (Bld) [#/Vol] 0.15 10*3/uL Low [facility] Lymphocytes/100 WBC (Bld) 3.2 % [facility] MCH (RBC) [Entitic mass] 28.2 pg 26.0 - 34.0 pg [facility] MCHC (RBC) [Mass/Vol] 32 g/dL 30.5 - 36.0 g/dL [facility] MCV (RBC) [Entitic vol] 88.1 fL 80.0 - 100.0 fL [facility] Monocytes (Bld) [#/Vol] 0.72 10*3/uL [facility] Monocytes/100 WBC (Bld) 15.5 % [facility] Neutrophils (Bld) [#/Vol] 3.55 10*3/uL [facility] Neutrophils/100 WBC (Bld) 76.2 % [facility] Nucleated RBC (Bld) [#/Vol] [facility] Nucleated RBC/100 WBC (Bld) [Ratio] 0 % /100 WBC [facility] Platelet mean volume (Bld) [Entitic vol] 9.3 fL 9.0 - 12.7 fL [facility] Platelets (Bld) [#/Vol] 173 10*3/uL [facility] RBC (Bld) [#/Vol] 3.62 10*6/uL Low 3.90 - 5.2 0 m/uL [facility] WBC (Bld) [#/Vol] 4.66 10*3/uL [facility] Basophils (Bld) [#/Vol] 0.05 10*3/uL Normal <0.11 [facility] Comment on above: Order Comment: Speci men Type: BLOOD SPECIMENOrdering Facility: [facility] Address: [address] [place] [address] Performed By: #### 5 7021-8 ####[facility] RIGOBERTO WOOD [id number] [place] [address] [place] Basophils/100 WBC (Bld) 1.1 % Normal [facility] Comment on above: Order Comment: Speci men Type: BLOOD SPECIMENOrdering Facility: [facility] Address: [address] [place] [address] Performed By: #### 5 7021-8 ####[facility] [id number] [place] [address] [place] Differential cell count method Nom (Bld) Auto Normal [facility] Comment on above: Order Comment: Speci men Type: BLOOD SPECIMENOrdering Facility: [facility] Address: [address] [place] [address] Performed By: #### 5 7021-8 ####[facility] [id number] [place] [address] [place] Eosinophils (Bld) [#/Vol] 0.16 10*3/uL Normal <0.46 [facility] Comment on above: Order Comment: Speci men Type: BLOOD SPECIMENOrdering Facility: [facility] Address: [address] [place] [address] Performed By: #### 5 7021-8 ####[facility] [id number] [place] [address] [place] Eosinophils/100 WBC (Bld) 3.4 % Normal [facility] Comment on above: Order Comment: Speci men Type: BLOOD SPECIMENOrdering Facility: [facility] Address: [address] [place] [address] Performed By: #### 5 7021-8 ####[facility] [id number] [place] [address] [place] Erythrocyte distribution width (RBC) [Ratio] 21.2 % High 11.5-15.0 [facility] Comment on above: Order Comment: Speci men Type: BLOOD SPECIMENOrdering Facility: [facility] Address: [address] [place] [address] Performed By: #### 5 7021-8 ####[facility] ALYSSAJAZMYN [id number] [place] [address] [place] Hematocrit (Bld) [Volume fraction] 31.9 % Low 36.0-46.0 [facility] Comment on above: Order Comment: Speci men Type: BLOOD SPECIMENOrdering Facility: [facility] Address: [address] [place] [address] Performed By: #### 5 7021-8 ####[facility] FLORIDANCTIFFANI [id number] [place] [address] [place] Hemoglobin (Bld) [Mass/Vol] 10.2 g/dL Low 11.5-15.5 [facility] Comment on above: Order Comment: Speci men Type: BLOOD SPECIMENOrdering Facility: [facility] Address: [address] [place] [address] Performed By: #### 5 7021-8 ####[facility] FLORIDAZEVFroy [id number] [place] [address] [place] Immature granulocytes (Bld) [#/Vol] 0.03 10*3/uL Normal <0.10 [facility] Comment on above: Order Comment: Speci men Type: BLOOD SPECIMENOrdering Facility: [facility] Address: [address] [place] [address] Performed By: #### 5 7021-8 ####[facility] FLORIDANCLIA [id number] [place] [address] [place] Immature granulocytes/100 WBC (Bld) 0.6 % Normal [facility] Comment on above: Order Comment: Speci men Type: BLOOD SPECIMENOrdering Facility: [facility] Address: [address] [place] [address] Performed By: #### 5 7021-8 ####[facility]OSPITALWNCLIA [id number] [place] [address] [place] Lymphocytes (Bld) [#/Vol] 0.15 10*3/uL Low 1.00-4.00 [facility] Comment on above: Order Comment: Speci men Type: BLOOD SPECIMENOrdering Facility: [facility] Address: [address] [place] [address] Performed By: #### 5 7021-8 ####[facility]OSPITALA [id number] [place] [address] [place] Lymphocytes/100 WBC (Bld) 3.2 % Normal [facility] Comment on above: Order Comment: Speci men Type: BLOOD SPECIMENOrdering Facility: [facility] Address: [address] [place] [address] Performed By: #### 5 7021-8 ####[facility] [id number] [place] [address] [place] MCH (RBC) [Entitic mass] 28.2 pg Normal 26.0-34.0 [facility] Comment on above: Order Comment: Speci men Type: BLOOD SPECIMENOrdering Facility: [facility] Address: [address] [place] [address] Performed By: #### 5 7021-8 ####[facility]OSPITALA [id number] [place] [address] [place] MCHC (RBC) [Mass/Vol] 32.0 g/dL Normal 30.5-36.0 [facility] Comment on above: Order Comment: Speci men Type: BLOOD SPECIMENOrdering Facility: [facility] Address: [address] [place] [address] Performed By: #### 5 7021-8 ####[facility] FLORIDANCLI [id number] [place] [address] [place] MCV (RBC) [Entitic vol] 88.1 fL Normal 80.0-100.[address] [facility] Comment on above: Order Comment: Speci men Type: BLOOD SPECIMENOrdering Facility: [facility] Address: [address] [place] [address] Performed By: #### 5 7021-8 ####[facility] FLORIDANCA [id number] [place] [address] [place] Monocytes (Bld) [#/Vol] 0.72 10*3/uL Normal <0.87 [facility] Comment on above: Order Comment: Speci men Type: BLOOD SPECIMENOrdering Facility: [facility] Address: [address] [place] [address] Performed By: #### 5 7021-8 ####[facility] FLORIDANCA [id number] [place] [address] [place] Monocytes/100 WBC (Bld) 15.5 % Normal [facility] Comment on above: Order Comment: Speci men Type: BLOOD SPECIMENOrdering Facility: [facility] Address: [address] [place] [address] Performed By: #### 5 7021-8 ####[facility] MEDICAL CENTERLIA [id number] [place] [address] [place] Neutrophils (Bld) [#/Vol] 3.55 10*3/uL Normal 1.45-7.50 [facility] Comment on above: Order Comment: Speci men Type: BLOOD SPECIMENOrdering Facility: [facility] Address: [address] [place] [address] Performed By: #### 5 7021-8 ####[facility] FLORIDANCLIA [id number] [place] [address] [place] Neutrophils/100 WBC (Bld) 76.2 % Normal [facility] Comment on above: Order Comment: Speci men Type: BLOOD SPECIMENOrdering Facility: [facility] Address: [address] [place] [address] Performed By: #### 5 7021-8 ####[facility] FLORIDANICOLE [id number] [place] [address] [place] Nucleated RBC (Bld) [#/Vol] 10*3/uL Normal <0.01 [facility] Comment on above: Order Comment: Speci men Type: BLOOD SPECIMENOrdering Facility: [facility] Address: [address] [place] [address] Performed By: #### 5 7021-8 ####[facility] [id number] [place] [address] [place] Nucleated RBC/100 WBC (Bld) [Ratio] 0.0 /100 WBC Normal [facility] Comment on above: Order Comment: Speci men Type: BLOOD SPECIMENOrdering Facility: [facility] Address: [address] [place] [address] Performed By: #### 5 7021-8 ####[facility] [id number] [place] [address] [place] Platelet mean volume (Bld) [Entitic vol] 9.3 fL Normal 9.0-12.7 [facility] Comment on above: Order Comment: Speci men Type: BLOOD SPECIMENOrdering Facility: [facility] Address: [address] [place] [address] Performed By: #### 5 7021-8 ####[facility] [id number] [place] [address] [place] Platelets (Bld) [#/Vol] 173 10*3/uL Normal 150-400 [facility] Comment on above: Order Comment: Speci men Type: BLOOD SPECIMENOrdering Facility: [facility] Address: [address] [place] [address] Performed By: #### 5 7021-8 ####[facility] FLORIDANCLIA [id number] [place] [address] [place] RBC (Bld) [#/Vol] 3.62 10*6/uL Low 3.90-5.20 [facility] Comment on above: Order Comment: Speci men Type: BLOOD SPECIMENOrdering Facility: [facility] Address: [address] [place] [address] Performed By: #### 5 7021-8 ####[facility] FLORIDANCLIA [id number] [place] [address] [place] WBC (Bld) [#/Vol] 4.66 10*3/uL Normal 3.70-11.00 [facility] Comment on above: Order Comment: Speci men Type: BLOOD SPECIMENOrdering Facility: [facility] Address: [address] [place] [address] Performed By: #### 5 7021-8 ####[facility] FLORIDANCLIA [id number] [place] [address] [place] CNCNPATEDon 11-16-[address] [facility] metabolic 2000 panelOrdered By: Cyndie Zhou on 11-16-2024 Albumin [Mass/Vol] 3.5 g/dL Low 3.9 - 4.9 g/dL [facility] ALP [Catalytic activity/Vol] 63 U/L 34 - 123 U/L [facility] ALT [Catalytic activity/Vol] 9 U/L 7 - 38 U/L [facility] Anion gap [Moles/Vol] 8 mmol/L 8 - 15 mmol/L [facility] AST [Catalytic activity/Vol] 16 U/L 13 - 35 U/L [facility] Bilirubin [Mass/Vol] 0.2 mg/dL 0.2 - 1 .3 mg/dL [facility] Calcium [Mass/Vol] 9.2 mg/dL 8.5 - 10. 2 mg/dL [facility] Chloride [Moles/Vol] 99 mmol/L 98 - 10 7 mmol/L [facility] CO2 [Moles/Vol] 24 mmol/L 22 - 30 mmol/L [facility] Creatinine [Mass/Vol] 0.65 mg/dL 0.58 - 0.96 mg/dL [facility] GFR/1.73 sq M.predicted among non-blacks MDRD (S/P/Bld) [Vol rate/Area] 98 mL/min/{1.73_m2} - PINF [facility] Comment on above: Estimated Glomerular Filtration [...] 106 mg/dL High 74 - 99 mg/dL [facility] Comment on above: The [place] Diab[employer] s Association (ADA) provides guidance for [...] Standards of Medical Care in Diabetes 2016, [place] [employer]. Diabetes Care. 2016.39(Suppl 1). Interpretation and review of laboratory results Abnormal [facility] Potassium [Moles/Vol] 4 mmol/L 3.7 - 5.1 mmol/L [facility] Protein [Mass/Vol] 6.4 g/dL 6.3 - 8.0 g/dL [facility] Sodium [Moles/Vol] 131 mmol/L Low 136 - 144 mmol/L [facility] Urea nitrogen [Mass/Vol] 12 mg/dL 7 - 21 mg/dL [facility] Comprehensive metabolic 2000 panelon 11-16-2024 Albumin [Mass/Vol] 3.5 g/dL Low 3.9-4.9 [facility] Comment on above: Order Comment: Speci men Type: BLOOD SPECIMENOrdering Facility: [facility] Address: [address] [place] [address] Performed By: #### 2 4323-8 ####[facility] ALYSSATOWNCLIA [id number] [place] [address] [place] ALP [Catalytic activity/Vol] 63 U/L Normal 34-123 [facility] Comment on above: Order Comment: Speci men Type: BLOOD SPECIMENOrdering Facility: [facility] Address: [address] [place] [address] Performed By: #### 2 4323-8 ####[facility] MILLTOWNCLIA [id number] [place] [address] [place] ALT [Catalytic activity/Vol] 9 U/L Normal 7-38 [facility] Comment on above: Order Comment: Speci men Type: BLOOD SPECIMENOrdering Facility: [facility] Address: [address] [place] [address] Performed By: #### 2 4323-8 ####[facility]OSPITALWNCLIA [id number] [place] [address] [place] Anion gap [Moles/Vol] 8 mmol/L Normal 8-15 [facility] Comment on above: Order Comment: Speci men Type: BLOOD SPECIMENOrdering Facility: [facility] Address: [address] [place] [address] Performed By: #### 2 4323-8 ####[facility] MILLTOWNCLIA [id number] [place] [address] [place] AST [Catalytic activity/Vol] 16 U/L Normal 13-35 [facility] Comment on above: Order Comment: Speci men Type: BLOOD SPECIMENOrdering Facility: [facility] Address: [address] [place] [address] Performed By: #### 2 4323-8 ####[facility] MILLTOWNCLIA [id number] [place] [address] [place] Bilirubin [Mass/Vol] 0.2 mg/dL Normal 0.2-1.3 [facility] Comment on above: Order Comment: Speci men Type: BLOOD SPECIMENOrdering Facility: [facility] Address: [address] [place] [address] Performed By: #### 2 4323-8 ####[facility] MILLWNCLIA [id number] [place] [address] [place] Calcium [Mass/Vol] 9.2 mg/dL Normal 8.5-10.2 [facility] Comment on above: Order Comment: Speci men Type: BLOOD SPECIMENOrdering Facility: [facility] Address: [address] [place] [address] Performed By: #### 2 4323-8 ####[facility] FLORIDANCLIA [id number] [place] [address] [place] Chloride [Moles/Vol] 99 mmol/L Normal 98-107 [facility] Comment on above: Order Comment: Speci men Type: BLOOD SPECIMENOrdering Facility: [facility] Address: [address] [place] [address] Performed By: #### 2 4323-8 ####[facility]ITALWNCLIA [id number] [place] [address] [place] CO2 [Moles/Vol] 24 mmol/L Normal 22-30 [facility] Comment on above: Order Comment: Speci men Type: BLOOD SPECIMENOrdering Facility: [facility] Address: [address] [place] [address] Performed By: #### 2 4323-8 ####[facility] FLORIDANCLIA [id number] [place] [address] [place] Creatinine [Mass/Vol] 0.65 mg/dL Normal 0.58-0.96 [facility] Comment on above: Order Comment: Mindy mcfarlane Type: BLOOD SPECIMENOrdering Facility: [facility] Address: [address] [place] [address] Performed By: #### 2 4323-8 ####[facility] [id number] [place] [address] [place] Creatinine and Glomerular filtration rate.predicted panel (S/P/Bld) 98 mL/min/1.73m??? Normal >=60 [facility] Comment on above: Order Comment: Mindy mcfarlane Type: BLOOD SPECIMENOrdering Facility: [facility] Address: [address] [place] [address] Result Comment: Sonia mated Glomerular Filtration Rate [...] actual GFR. Performed By: #### 2 4323-8 ####[facility] [id number] [place] [address] [place] Glucose [Mass/Vol] 106 mg/dL High 74-99 [facility] Comment on above: Order Comment: Mindy mcfarlane Type: BLOOD SPECIMENOrdering Facility: [facility] Address: [address] [place] [address] Result Comment: The [place] Diabetes Association (ADA) provides guidance for cutoff [...] Standards of Medical Care in Diabetes 2016, [place] Diabetes [employer]. Diabetes Care. 2016.39(Suppl 1). Performed By: #### 2 4323-8 ####[facility] RIGOBERTO SHAHKEATONA [id number] [place] [address] [place] Potassium [Moles/Vol] 4.0 mmol/L Normal 3.7-5.1 [facility] Comment on above: Order Comment: Speci men Type: BLOOD SPECIMENOrdering Facility: [facility] Address: [address] [place] [address] Performed By: #### 2 4323-8 ####[facility] HOSPITALMICK [id number] [place] [address] [place] Protein [Mass/Vol] 6.4 g/dL Normal 6.3-8.0 [facility] Comment on above: Order Comment: Speci men Type: BLOOD SPECIMENOrdering Facility: [facility] Address: [address] [place] [address] Performed By: #### 2 4323-8 ####[facility] FLORIDAHAMLETA [id number] [place] [address] [place] Sodium [Moles/Vol] 131 mmol/L Low 136-144 [facility] Comment on above: Order Comment: Speci men Type: BLOOD SPECIMENOrdering Facility: [facility] Address: [address] [place] [address] Performed By: #### 2 4323-8 ####[facility] HOSPITALROBERTLIA [id number] [place] [address] [place] Urea nitrogen [Mass/Vol] 12 mg/dL Normal 7-21 [facility] Comment on above: Order Comment: Speci men Type: BLOOD SPECIMENOrdering Facility: [facility] Address: [address] [place] [address] Performed By: #### 2 4323-8 ####[facility] FLORIDAZEVDEL[facility] [id number] [place] [address] [place] CNOVon 11-10-2024 CNOV Normal [facility] CBC W Auto Differential pane l (Bld)on 11-09-2024 Basophils (Bld) [#/Vol] 0.03 10*3/uL [facility] Basophils/100 WBC (Bld) 1.1 % [facility] Differential cell count method Nom (Bld) Auto [facility] Eosinophils (Bld) [#/Vol] 0.09 10*3/uL [facility] Eosinophils/100 WBC (Bld) 3.4 % [facility] Erythrocyte distribution width (RBC) [Ratio] 20.2 % High 11.5 - 15.0 % [facility] Hematocrit (Bld) [Volume fraction] 32.4 % Low 36.0 - 46.0 % [facility] Hemoglobin (Bld) [Mass/Vol] 10.6 g/dL Low 11.5 - 15.5 g/dL [facility] Immature granulocytes (Bld) [#/Vol] [facility] Immature granulocytes/100 WBC (Bld) 0.8 % [facility] Interpretation and review of laboratory results Abnormal [facility] Lymphocytes (Bld) [#/Vol] 0.17 10*3/uL Low [facility] Lymphocytes/100 WBC (Bld) 6.5 % [facility] MCH (RBC) [Entitic mass] 28.3 pg 26.0 - 34.0 pg [facility] MCHC (RBC) [Mass/Vol] 32.7 g/dL 30.5 - 36.0 g/dL [facility] MCV (RBC) [Entitic vol] 86.6 fL 80.0 - 100.0 fL [facility] Monocytes (Bld) [#/Vol] 0.25 10*3/uL [facility] Monocytes/100 WBC (Bld) 9.6 % [facility] Neutrophils (Bld) [#/Vol] 2.05 10*3/uL [facility] Neutrophils/100 WBC (Bld) 78.6 % [facility] Nucleated RBC (Bld) [#/Vol] [facility] Nucleated RBC/100 WBC (Bld) [Ratio] 0 % /100 WBC [facility] Platelet mean volume (Bld) [Entitic vol] 9.9 fL 9.0 - 12.7 fL [facility] Platelets (Bld) [#/Vol] 219 10*3/uL [facility] RBC (Bld) [#/Vol] 3.74 10*6/uL Low 3.90 - 5.2 0 m/uL [facility] WBC (Bld) [#/Vol] 2.61 10*3/uL Low [facility] Basophils (Bld) [#/Vol] 0.03 10*3/uL Normal <0.11 [facility] Comment on above: Order Comment: Speci men Type: BLOOD SPECIMENOrdering Facility: [facility] Address: [address] [place] [address] Performed By: #### 5 7021-8 ####[facility] [id number] [place] [address] [place] Basophils/100 WBC (Bld) 1.1 % Normal [facility] Comment on above: Order Comment: Speci men Type: BLOOD SPECIMENOrdering Facility: [facility] Address: [address] [place] [address] Performed By: #### 5 7021-8 ####[facility] [id number] [place] [address] [place] Differential cell count method Nom (Bld) Auto Normal [facility] Comment on above: Order Comment: Speci men Type: BLOOD SPECIMENOrdering Facility: [facility] Address: [address] [place] [address] Performed By: #### 5 7021-8 ####[facility] [id number] [place] [address] [place] Eosinophils (Bld) [#/Vol] 0.09 10*3/uL Normal <0.46 [facility] Comment on above: Order Comment: Speci men Type: BLOOD SPECIMENOrdering Facility: [facility] Address: [address] [place] [address] Performed By: #### 5 7021-8 ####[facility] MILLWNCLIA [id number] [place] [address] [place] Eosinophils/100 WBC (Bld) 3.4 % Normal [facility] Comment on above: Order Comment: Speci men Type: BLOOD SPECIMENOrdering Facility: [facility] Address: [address] [place] [address] Performed By: #### 5 7021-8 ####[facility] FLORIDAZEVLIA [id number] [place] [address] [place] Erythrocyte distribution width (RBC) [Ratio] 20.2 % High 11.5-15.0 [facility] Comment on above: Order Comment: Speci men Type: BLOOD SPECIMENOrdering Facility: [facility] Address: [address] [place] [address] Performed By: #### 5 7021-8 ####[facility] CENTERLIA [id number] [place] [address] [place] Hematocrit (Bld) [Volume fraction] 32.4 % Low 36.0-46.0 [facility] Comment on above: Order Comment: Speci men Type: BLOOD SPECIMENOrdering Facility: [facility] Address: [address] [place] [address] Performed By: #### 5 7021-8 ####[facility]PITALWNCLIA [id number] [place] [address] [place] Hemoglobin (Bld) [Mass/Vol] 10.6 g/dL Low 11.5-15.5 [facility] Comment on above: Order Comment: Speci men Type: BLOOD SPECIMENOrdering Facility: [facility] Address: [address] [place] [address] Performed By: #### 5 7021-8 ####[facility] FLORIDANCLIA [id number] [place] [address] [place] Immature granulocytes (Bld) [#/Vol] 10*3/uL Normal <0.10 [facility] Comment on above: Order Comment: Speci men Type: BLOOD SPECIMENOrdering Facility: [facility] Address: [address] [place] [address] Performed By: #### 5 7021-8 ####[facility] CENTERLIA [id number] [place] [address] [place] Immature granulocytes/100 WBC (Bld) 0.8 % Normal [facility] Comment on above: Order Comment: Speci men Type: BLOOD SPECIMENOrdering Facility: [facility] Address: [address] [place] [address] Performed By: #### 5 7021-8 ####[facility] FLORIDANCLI [id number] [place] [address] [place] Lymphocytes (Bld) [#/Vol] 0.17 10*3/uL Low 1.00-4.00 [facility] Comment on above: Order Comment: Speci men Type: BLOOD SPECIMENOrdering Facility: [facility] Address: [address] [place] [address] Performed By: #### 5 7021-8 ####[facility] CENTERLIA [id number] [place] [address] [place] Lymphocytes/100 WBC (Bld) 6.5 % Normal [facility] Comment on above: Order Comment: Speci men Type: BLOOD SPECIMENOrdering Facility: [facility] Address: [address] [place] [address] Performed By: #### 5 7021-8 ####[facility] FLORIDANCLIA [id number] [place] [address] [place] MCH (RBC) [Entitic mass] 28.3 pg Normal 26.0-34.0 [facility] Comment on above: Order Comment: Speci men Type: BLOOD SPECIMENOrdering Facility: [facility] Address: [address] [place] [address] Performed By: #### 5 7021-8 ####[facility] NABILNCBLAKE [id number] [place] [address] [place] MCHC (RBC) [Mass/Vol] 32.7 g/dL Normal 30.5-36.0 [facility] Comment on above: Order Comment: Speci men Type: BLOOD SPECIMENOrdering Facility: [facility] Address: [address] [place] [address] Performed By: #### 5 7021-8 ####[facility] FLORIDANICOLE [id number] [place] [address] [place] MCV (RBC) [Entitic vol] 86.6 fL Normal 80.0-100.[address] [facility] Comment on above: Order Comment: Speci men Type: BLOOD SPECIMENOrdering Facility: [facility] Address: [address] [place], [place] [address] Performed By: #### 5 7021-8 ####[facility] FLORIDANICOLE [id number] [place] [address] [place] Monocytes (Bld) [#/Vol] 0.25 10*3/uL Normal <0.87 [facility] Comment on above: Order Comment: Speci men Type: BLOOD SPECIMENOrdering Facility: [facility] Address: [address] [place] [address] Performed By: #### 5 7021-8 ####[facility] FLORIDANCLIA [id number] [place] [address] [place] Monocytes/100 WBC (Bld) 9.6 % Normal [facility] Comment on above: Order Comment: Speci men Type: BLOOD SPECIMENOrdering Facility: [facility] Address: [address] [place] [address] Performed By: #### 5 7021-8 ####[facility] MILLWNCLIA [id number] [place] [address] [place] Neutrophils (Bld) [#/Vol] 2.05 10*3/uL Normal 1.45-7.50 [facility] Comment on above: Order Comment: Speci men Type: BLOOD SPECIMENOrdering Facility: [facility] Address: [address] [place] [address] Performed By: #### 5 7021-8 ####[facility] CENTERLIA [id number] [place] [address] [place] Neutrophils/100 WBC (Bld) 78.6 % Normal [facility] Comment on above: Order Comment: Speci men Type: BLOOD SPECIMENOrdering Facility: [facility] Address: [address] [place] [address] Performed By: #### 5 7021-8 ####[facility] CENTERLIA [id number] [place] [address] [place] Nucleated RBC (Bld) [#/Vol] 10*3/uL Normal <0.01 [facility] Comment on above: Order Comment: Speci men Type: BLOOD SPECIMENOrdering Facility: [facility] Address: [address] [place] [address] Performed By: #### 5 7021-8 ####[facility] CENTERLIA [id number] [place] [address] [place] Nucleated RBC/100 WBC (Bld) [Ratio] 0.0 /100 WBC Normal [facility] Comment on above: Order Comment: Speci men Type: BLOOD SPECIMENOrdering Facility: [facility] Address: [address] [place] [address] Performed By: #### 5 7021-8 ####[facility]IDANCDEL[facility] [id number] [place] [address] [place] Platelet mean volume (Bld) [Entitic vol] 9.9 fL Normal 9.0-12.7 [facility] Comment on above: Order Comment: Speci men Type: BLOOD SPECIMENOrdering Facility: [facility] Address: [address] [place] [address] Performed By: #### 5 7021-8 ####[facility] ALYSSAALBANYNICOLE [id number] [place] [address] [place] Platelets (Bld) [#/Vol] 219 10*3/uL Normal 150-400 [facility] Comment on above: Order Comment: Speci men Type: BLOOD SPECIMENOrdering Facility: [facility] Address: [address] [place] [address] Performed By: #### 5 7021-8 ####[facility] FLORIDAHAMLETFroy [id number] [place] [address] [place] RBC (Bld) [#/Vol] 3.74 10*6/uL Low 3.90-5.20 [facility] Comment on above: Order Comment: Speci men Type: BLOOD SPECIMENOrdering Facility: [facility] Address: [address] [place] [address] Performed By: #### 5 7021-8 ####[facility] FLORIDANCLIA [id number] [place] [address] [place] WBC (Bld) [#/Vol] 2.61 10*3/uL Low 3.70-11.00 [facility] Comment on above: Order Comment: Speci men Type: BLOOD SPECIMENOrdering Facility: [facility] Address: [address] [place] [address] Performed By: #### 5 7021-8 ####[facility] FLORIDANCLIA [id number] [place] [address] [place] CNOVSPon 11-09-[address] [facility] metabolic 2000 panelOrdered By: Frannie Puente on 11-09-2024 Albumin [Mass/Vol] 3.7 g/dL Low 3.9 - 4.9 g/dL [facility] ALP [Catalytic activity/Vol] 68 U/L 34 - 123 U/L [facility] ALT [Catalytic activity/Vol] 13 U/L 7 - 38 U/L [facility] Anion gap [Moles/Vol] 11 mmol/L 8 - 15 mmol/L [facility] AST [Catalytic activity/Vol] 15 U/L 13 - 35 U/L [facility] Bilirubin [Mass/Vol] 0.2 mg/dL 0.2 - 1 .3 mg/dL [facility] Calcium [Mass/Vol] 9.7 mg/dL 8.5 - 10. 2 mg/dL [facility] Chloride [Moles/Vol] 98 mmol/L 98 - 10 7 mmol/L [facility] CO2 [Moles/Vol] 24 mmol/L 22 - 30 mmol/L [facility] Creatinine [Mass/Vol] 0.64 mg/dL 0.58 - 0.96 mg/dL [facility] GFR/1.73 sq M.predicted among non-blacks MDRD (S/P/Bld) [Vol rate/Area] 98 mL/min/{1.73_m2} - PINF [facility] Comment on above: Estimated Glomerular Filtration [...] 103 mg/dL High 74 - 99 mg/dL [facility] Comment on above: The [place] Diabete s Association (ADA) provides guidance for [...] Standards of Medical Care in Diabetes 2016, [place] [employer] Association. Diabetes Care. 2016.39(Suppl 1). Interpretation and review of laboratory results Abnormal [facility] Potassium [Moles/Vol] 4.1 mmol/L 3.7 - 5.1 mmol/L [facility] Protein [Mass/Vol] 6.5 g/dL 6.3 - 8.0 g/dL [facility] Sodium [Moles/Vol] 133 mmol/L Low 136 - 144 mmol/L [facility] Urea nitrogen [Mass/Vol] 15 mg/dL 7 - 21 mg/dL [facility] Comprehensive metabolic 2000 panelon 11-09-2024 Albumin [Mass/Vol] 3.7 g/dL Low 3.9-4.9 [facility] Comment on above: Order Comment: Speci men Type: BLOOD SPECIMENOrdering Facility: [facility] Address: [address] [place] [address] Performed By: #### 2 4323-8 ####[facility] CENTERLI [id number] [place] [address] [place] ALP [Catalytic activity/Vol] 68 U/L Normal 34-123 [facility] Comment on above: Order Comment: Stanislavi men Type: BLOOD SPECIMENOrdering Facility: [facility] Address: [address] [place] [address] Performed By: #### 2 4323-8 ####[facility] CENTERLIA [id number] [place] [address] [place] ALT [Catalytic activity/Vol] 13 U/L Normal 7-38 [facility] Comment on above: Order Comment: Stanislavi men Type: BLOOD SPECIMENOrdering Facility: [facility] Address: [address] [place] [address] Performed By: #### 2 4323-8 ####[facility] FLORIDANCLIA [id number] [place] [address] [place] Anion gap [Moles/Vol] 11 mmol/L Normal 8-15 [facility] Comment on above: Order Comment: Speci men Type: BLOOD SPECIMENOrdering Facility: [facility] Address: [address] [place] [address] Performed By: #### 2 4323-8 ####[facility] HOSPITALWILLIA [id number] [place] [address] [place] AST [Catalytic activity/Vol] 15 U/L Normal 13-35 [facility] Comment on above: Order Comment: Speci men Type: BLOOD SPECIMENOrdering Facility: [facility] Address: [address] [place] [address] Performed By: #### 2 4323-8 ####[facility] HOSPITALA [id number] [place] [address] [place] Bilirubin [Mass/Vol] 0.2 mg/dL Normal 0.2-1.3 [facility] Comment on above: Order Comment: Speci men Type: BLOOD SPECIMENOrdering Facility: [facility] Address: [address] [place] [address] Performed By: #### 2 4323-8 ####[facility] CENTERLIA [id number] [place] [address] [place] Calcium [Mass/Vol] 9.7 mg/dL Normal 8.5-10.2 [facility] Comment on above: Order Comment: Speci men Type: BLOOD SPECIMENOrdering Facility: [facility] Address: [address] [place], [place] [address] Performed By: #### 2 4323-8 ####[facility] FLORIDANCLIA [id number] [place] [address] [place] Chloride [Moles/Vol] 98 mmol/L Normal 98-107 [facility] Comment on above: Order Comment: Speci men Type: BLOOD SPECIMENOrdering Facility: [facility] Address: [address] [place] [address] Performed By: #### 2 4323-8 ####[facility] [id number] [place] [address] [place] CO2 [Moles/Vol] 24 mmol/L Normal 22-30 [facility] Comment on above: Order Comment: Speci men Type: BLOOD SPECIMENOrdering Facility: [facility] Address: [address] [place] [address] Performed By: #### 2 4323-8 ####[facility] [id number] [place] [address] [place] Creatinine [Mass/Vol] 0.64 mg/dL Normal 0.58-0.96 [facility] Comment on above: Order Comment: Speci men Type: BLOOD SPECIMENOrdering Facility: [facility] Address: [address] [place] [address] Performed By: #### 2 4323-8 ####[facility] [id number] [address] [place] Creatinine and Glomerular filtration rate.predicted panel (S/P/Bld) 98 mL/min/1.73m??? Normal >=60 [facility] Comment on above: Order Comment: Speci men Type: BLOOD SPECIMENOrdering Facility: [facility] Address: [address] [place] [address] Result Comment: Sonia mated Glomerular Filtration Rate [...] actual GFR. Performed By: #### 2 4323-8 ####[facility] FLORIDANCLI [id number] [place] [address] [place] Glucose [Mass/Vol] 103 mg/dL High 74-99 [facility] Comment on above: Order Comment: Speci men Type: BLOOD SPECIMENOrdering Facility: [facility] Address: [address] [place] [address] Result Comment: The [place] Diabetes Association (ADA) provides guidance for cutoff [...] Standards of Medical Care in Diabetes 2016, [place] Diabetes Association. Diabetes Care. 2016.39(Suppl 1). Performed By: #### 2 4323-8 ####[facility] HOSPITALTOWZEVLIA [id number] [place] [address] [place] Potassium [Moles/Vol] 4.1 mmol/L Normal 3.7-5.1 [facility] Comment on above: Order Comment: Speci men Type: BLOOD SPECIMENOrdering Facility: [facility] Address: [address] [place] [address] Performed By: #### 2 4323-8 ####[facility] HOSPITALWNCLIA [id number] [place] [address] [place] Protein [Mass/Vol] 6.5 g/dL Normal 6.3-8.0 [facility] Comment on above: Order Comment: Speci men Type: BLOOD SPECIMENOrdering Facility: [facility] Address: [address] [place], [place] [address] Performed By: #### 2 4323-8 ####[facility] FLORIDAZEVLIA [id number] [place] [address] [place] Sodium [Moles/Vol] 133 mmol/L Low 136-144 [facility] Comment on above: Order Comment: Speci men Type: BLOOD SPECIMENOrdering Facility: [facility] Address: [address] [place] [address] Performed By: #### 2 4323-8 ####[facility] [id number] [place] [address] [place] Urea nitrogen [Mass/Vol] 15 mg/dL Normal 7-21 [facility] Comment on above: Order Comment: Speci men Type: BLOOD SPECIMENOrdering Facility: [facility] Address: [address] [place] [address] Performed By: #### 2 4323-8 ####[facility] [id number] [place] [address] [place] CNPNon 11-05-2024 CNPN Normal [facility] CNOVon 11-03-2024 CNOV Normal [facility] BRIEF OP NOTon 10-30-2024 BRIEF OP NOT HNO ID: [id number] Author: ORTEGA CARDENAS MD Service: Radiology Author Type: Physician Type: Brief Op Note Filed: 10/30/2024 14:35 Note Text: RADIOLOGY BRIEF PROCEDURE NOTE LOG ID: [id number] Surgery/Procedure Date: 10/30/2024 Incision/Procedure Start Time: 1:53 PM Incision Close/Procedure End Time: 2:28 PM Informed Consent obtained under separate note. ATTENDING RADIOLOGIST: Interventional: Dr. Ortega Cardenas STOVE BOTTOM WORKER: None PRE-PROCEDURAL DIAGNOSIS: Anal cancer ANESTHESIA: Procedural Sedation PROCEDURE: A ported central venous catheter was placed via the right internal jugular vein under imaging guidance. POST-PROCEDURAL DIAGNOSIS: Same COMPLICATIONS: None ESTIMATED BLOOD LOSS: Minimal INDWELLING DEVICES: Vaccess CT Power-Injectable Port with 8 Micronesian polyurethane catheter SPECIMENS: None DISPOSITION: Patient hemodynamically stable, alert and awake. Patient transferred to Radiology Recovery/PACU for monitoring prior to anticipated discharge home. FULL REPORT TO FOLLOW (under the Imaging tab in the Chart Review section) SIGNATURE: Ortega Cardenas MD PATIENT NAME: Marimar Wang DATE: October 30, 2024 TIME: 2:33 PM CONTACT #: [phone] [facility] Brain/Head without Contrasto n 10-30-2024 Brain/Head without Contrast [facility] Imaging Services [address] [place] [address] Brain/Head without Contrast MR#: [id number] Acct: [id number] Name: MARIMAR WANG Rep #: [id number] : 1960 F 64 From: Jaiden Mariee MD PCP: STEFANO ArriolaC Status: REG ER Study: Brain/Head without Contrast Date of Exam: 11/20 Exam# [id number] Ordering Dr: Gaudencio Ambriz DO PROCEDURE: BRAIN/HEAD [...] mass effect or calvarial fracture. Reading Location: [facility] CC: GEOLOGY ASSOCIATEMadayC Julio Arriaga; Gaudencio Ambriz DO Melt Supervisor: Signed Normal [facility] CBC W Auto Differential pane l (Bld)on 10-30-2024 Basophils (Bld) [#/Vol] 0.04 10*3/uL Normal <0.11 [facility] Comment on above: Order Comment: Speci men Type: BLOOD SPECIMENOrdering Facility: [facility] Address: [address] [place] [address] Performed By: #### 5 7021-8 ####[facility] MILLWNCLIA [id number] [place] [address] [place] Basophils/100 WBC (Bld) 1.0 % Normal [facility] Comment on above: Order Comment: Speci men Type: BLOOD SPECIMENOrdering Facility: [facility] Address: [address] [place] [address] Performed By: #### 5 7021-8 ####[facility] CENTERLIA [id number] [place] [address] [place] Differential cell count method Nom (Bld) Auto Normal [facility] Comment on above: Order Comment: Speci men Type: BLOOD SPECIMENOrdering Facility: [facility] Address: [address] [place] [address] Performed By: #### 5 7021-8 ####[facility] CENTERLIA [id number] [place] [address] [place] Eosinophils (Bld) [#/Vol] 10*3/uL Normal <0.46 [facility] Comment on above: Order Comment: Speci men Type: BLOOD SPECIMENOrdering Facility: [facility] Address: [address] [place] [address] Performed By: #### 5 7021-8 ####[facility] HOSPITALA [id number] [place] [address] [place] Eosinophils/100 WBC (Bld) 0.5 % Normal [facility] Comment on above: Order Comment: Speci men Type: BLOOD SPECIMENOrdering Facility: [facility] Address: [address] [place] [address] Performed By: #### 5 7021-8 ####[facility] CENTERLIA [id number] [place] [address] [place] Erythrocyte distribution width (RBC) [Ratio] 20.9 % High 11.5-15.0 [facility] Comment on above: Order Comment: Speci men Type: BLOOD SPECIMENOrdering Facility: [facility] Address: [address] [place] [address] Performed By: #### 5 7021-8 ####[facility] [id number] [place] [address] [place] Hematocrit (Bld) [Volume fraction] 34.4 % Low 36.0-46.0 [facility] Comment on above: Order Comment: Speci men Type: BLOOD SPECIMENOrdering Facility: [facility] Address: [address] [place] [address] Performed By: #### 5 7021-8 ####[facility] [id number] [place] [address] [place] Hemoglobin (Bld) [Mass/Vol] 10.9 g/dL Low 11.5-15.5 [facility] Comment on above: Order Comment: Speci men Type: BLOOD SPECIMENOrdering Facility: [facility] Address: [address] [place] [address] Performed By: #### 5 7021-8 ####[facility] [id number] [place] [address] [place] Immature granulocytes (Bld) [#/Vol] 10*3/uL Normal <0.10 [facility] Comment on above: Order Comment: Speci men Type: BLOOD SPECIMENOrdering Facility: [facility] Address: [address] [place] [address] Performed By: #### 5 7021-8 ####[facility]IDANCLI [id number] [place] [address] [place] Immature granulocytes/100 WBC (Bld) 0.5 % Normal [facility] Comment on above: Order Comment: Speci men Type: BLOOD SPECIMENOrdering Facility: [facility] Address: [address] [place] [address] Performed By: #### 5 7021-8 ####[facility] ALYSSAALBANYNICOLE [id number] [place] [address] [place] Lymphocytes (Bld) [#/Vol] 0.31 10*3/uL Low 1.00-4.00 [facility] Comment on above: Order Comment: Speci men Type: BLOOD SPECIMENOrdering Facility: [facility] Address: [address] [place] [address] Performed By: #### 5 7021-8 ####[facility] [id number] [place] [address] [place] Lymphocytes/100 WBC (Bld) 7.7 % Normal [facility] Comment on above: Order Comment: Speci men Type: BLOOD SPECIMENOrdering Facility: [facility] Address: [address] [place] [address] Performed By: #### 5 7021-8 ####[facility] MEDICAL CENTERBLAKE [id number] [place] [address] [place] MCH (RBC) [Entitic mass] 27.3 pg Normal 26.0-34.0 [facility] Comment on above: Order Comment: Speci men Type: BLOOD SPECIMENOrdering Facility: [facility] Address: [address] [place] [address] Performed By: #### 5 7021-8 ####[facility] CENTERLIA [id number] [place] [address] [place] MCHC (RBC) [Mass/Vol] 31.7 g/dL Normal 30.5-36.0 [facility] Comment on above: Order Comment: Speci men Type: BLOOD SPECIMENOrdering Facility: [facility] Address: [address] [place] [address] Performed By: #### 5 7021-8 ####[facility] ALYSSAWNCLIA [id number] [place] [address] [place] MCV (RBC) [Entitic vol] 86.2 fL Normal 80.0-100.[address] [facility] Comment on above: Order Comment: Speci men Type: BLOOD SPECIMENOrdering Facility: [facility] Address: [address] [place] [address] Performed By: #### 5 7021-8 ####[facility] [id number] [place] [address] [place] Monocytes (Bld) [#/Vol] 0.47 10*3/uL Normal <0.87 [facility] Comment on above: Order Comment: Speci men Type: BLOOD SPECIMENOrdering Facility: [facility] Address: [address] [place] [address] Performed By: #### 5 7021-8 ####[facility] [id number] [place] [address] [place] Monocytes/100 WBC (Bld) 11.7 % Normal [facility] Comment on above: Order Comment: Speci men Type: BLOOD SPECIMENOrdering Facility: [facility] Address: [address] [place] [address] Performed By: #### 5 7021-8 ####[facility] CENTERLIA [id number] [place] [address] [place] Neutrophils (Bld) [#/Vol] 3.16 10*3/uL Normal 1.45-7.50 [facility] Comment on above: Order Comment: Speci men Type: BLOOD SPECIMENOrdering Facility: [facility] Address: [address] [place] [address] Performed By: #### 5 7021-8 ####[facility] FL[facility]IDANCLIA [id number] [place] [address] [place] Neutrophils/100 WBC (Bld) 78.6 % Normal [facility] Comment on above: Order Comment: Speci men Type: BLOOD SPECIMENOrdering Facility: [facility] Address: [address] [place] [address] Performed By: #### 5 7021-8 ####[facility] [id number] [place] [address] [place] Nucleated RBC (Bld) [#/Vol] 10*3/uL Normal <0.01 [facility] Comment on above: Order Comment: Speci men Type: BLOOD SPECIMENOrdering Facility: [facility] Address: [address] [place] [address] Performed By: #### 5 7021-8 ####[facility] [id number] [place] [address] [place] Nucleated RBC/100 WBC (Bld) [Ratio] 0.0 /100 WBC Normal [facility] Comment on above: Order Comment: Speci men Type: BLOOD SPECIMENOrdering Facility: [facility] Address: [address] [place] [address] Performed By: #### 5 7021-8 ####[facility] [id number] [place] [address] [place] Platelet mean volume (Bld) [Entitic vol] 9.7 fL Normal 9.0-12.7 [facility] Comment on above: Order Comment: Speci men Type: BLOOD SPECIMENOrdering Facility: [facility] Address: [address] [place] [address] Performed By: #### 5 7021-8 ####[facility] [id number] [place] [address] [place] Platelets (Bld) [#/Vol] 179 10*3/uL Normal 150-400 [facility] Comment on above: Order Comment: Speci men Type: BLOOD SPECIMENOrdering Facility: [facility] Address: [address] [place] [address] Performed By: #### 5 7021-8 ####[facility] [id number] [place] [address] [place] RBC (Bld) [#/Vol] 3.99 10*6/uL Normal 3.90-5.20 [facility] Comment on above: Order Comment: Speci men Type: BLOOD SPECIMENOrdering Facility: [facility] Address: [address] [place] [address] Performed By: #### 5 7021-8 ####[facility] NABILNCBLAKE [id number] [place] [address] [place] WBC (Bld) [#/Vol] 4.02 10*3/uL Normal 3.70-11.00 [facility] Comment on above: Order Comment: Speci men Type: BLOOD SPECIMENOrdering Facility: [facility] Address: [address] [place] [address] Performed By: #### 5 7021-8 ####[facility] ALYSSAJamirNCLIA [id number] [place] [address] [place] CNOVSPon 10-30-2024 CNOVSP Normal [facility] Comprehensive metabolic 2000 panelon 10-30-2024 Albumin [Mass/Vol] 3.9 g/dL Normal 3.9-4.9 [facility] Comment on above: Order Comment: Speci men Type: BLOOD SPECIMENOrdering Facility: [facility] Address: [address] [place], [place] [address] Performed By: #### 2 4323-8 ####[facility] ALYSSAALBANYNCLIA [id number] [place] [address] [place] ALP [Catalytic activity/Vol] 81 U/L Normal 34-123 [facility] Comment on above: Order Comment: Speci men Type: BLOOD SPECIMENOrdering Facility: [facility] Address: [address] [place] [address] Performed By: #### 2 4323-8 ####[facility] MILLTOWNCLIA [id number] [place] [address] [place] ALT [Catalytic activity/Vol] 17 U/L Normal 7-38 [facility] Comment on above: Order Comment: Speci men Type: BLOOD SPECIMENOrdering Facility: [facility] Address: [address] [place] [address] Performed By: #### 2 4323-8 ####[facility] FLORIDANCLIA [id number] [place] [address] [place] Anion gap [Moles/Vol] 8 mmol/L Normal 8-15 [facility] Comment on above: Order Comment: Speci men Type: BLOOD SPECIMENOrdering Facility: [facility] Address: [address] [place] [address] Performed By: #### 2 4323-8 ####[facility] FLORIDANCLIA [id number] [place] [address] [place] AST [Catalytic activity/Vol] 21 U/L Normal 13-35 [facility] Comment on above: Order Comment: Speci men Type: BLOOD SPECIMENOrdering Facility: [facility] Address: [address] [place] [address] Performed By: #### 2 4323-8 ####[facility] MILLTOWNCLIA [id number] [place] [address] [place] Bilirubin [Mass/Vol] 0.4 mg/dL Normal 0.2-1.3 [facility] Comment on above: Order Comment: Speci men Type: BLOOD SPECIMENOrdering Facility: [facility] Address: [address] [place] [address] Performed By: #### 2 4323-8 ####[facility] MILLALBANYNCLIA [id number] [place] [address] [place] Calcium [Mass/Vol] 9.6 mg/dL Normal 8.5-10.2 [facility] Comment on above: Order Comment: Speci men Type: BLOOD SPECIMENOrdering Facility: [facility] Address: [address] [place] [address] Performed By: #### 2 4323-8 ####[facility] MILLWNCLIA [id number] [place] [address] [place] Chloride [Moles/Vol] 102 mmol/L Normal 98-107 [facility] Comment on above: Order Comment: Speci men Type: BLOOD SPECIMENOrdering Facility: [facility] Address: [address] [place] [address] Performed By: #### 2 4323-8 ####[facility] FLORIDANCLIA [id number] [place] [address] [place] CO2 [Moles/Vol] 26 mmol/L Normal 22-30 [facility] Comment on above: Order Comment: Speci men Type: BLOOD SPECIMENOrdering Facility: [facility] Address: [address] [place] [address] Performed By: #### 2 4323-8 ####[facility] MILLWNCLIA [id number] [place] [address] [place] Creatinine [Mass/Vol] 0.65 mg/dL Normal 0.58-0.96 [facility] Comment on above: Order Comment: Speci men Type: BLOOD SPECIMENOrdering Facility: [facility] Address: [address] [place] [address] Performed By: #### 2 4323-8 ####[facility] MILLALBANYNCLIA [id number] [place] [address] [place] Creatinine and Glomerular filtration rate.predicted panel (S/P/Bld) 98 mL/min/1.73m??? Normal >=60 [facility] Comment on above: Order Comment: Mindy mcfarlane Type: BLOOD SPECIMENOrdering Facility: [facility] Address: [address] [id number] Result Comment: Sonia mated Glomerular Filtration Rate [...] actual GFR. Performed By: #### 2 4323-8 ####[facility] [id number] [place] [address] [place] Glucose [Mass/Vol] 111 mg/dL High 74-99 [facility] Comment on above: Order Comment: Mindy mcfarlane Type: BLOOD SPECIMENOrdering Facility: [facility] Address: [address] [place] [address] Result Comment: The [place] Diabetes Association (ADA) provides guidance for cutoff [...] Standards of Medical Care in Diabetes 2016, [place] [employer] Association. Diabetes Care. 2016.39(Suppl 1). Performed By: #### 2 4323-8 ####[facility] [id number] [place] [address] [place] Potassium [Moles/Vol] 3.7 mmol/L Normal 3.7-5.1 [facility] Comment on above: Order Comment: Mindy mcfarlane Type: BLOOD SPECIMENOrdering Facility: [facility] Address: [address] [place], [place] [address] Performed By: #### 2 4323-8 ####[facility] FLORIDANCLI [id number] [place] [address] [place] Protein [Mass/Vol] 6.9 g/dL Normal 6.3-8.0 [facility] Comment on above: Order Comment: Speci men Type: BLOOD SPECIMENOrdering Facility: [facility] Address: [address] [place] [address] Performed By: #### 2 4323-8 ####[facility] [id number] [place] [address] [place] Sodium [Moles/Vol] 136 mmol/L Normal 136-144 [facility] Comment on above: Order Comment: Speci men Type: BLOOD SPECIMENOrdering Facility: [facility] Address: [address] [place] [address] Performed By: #### 2 4323-8 ####[facility] FLORIDANCLIA [id number] [place] [address] [place] Urea nitrogen [Mass/Vol] 6 mg/dL Low 7-21 [facility] Comment on above: Order Comment: Speci men Type: BLOOD SPECIMENOrdering Facility: [facility] Address: [address] [place] [address] Performed By: #### 2 4323-8 ####[facility] FLORIDANCLIA [id number] [place] [address] [place] Emergency Department Summary on 10-30-2024 Emergency Department Summary [facility] Medical Records Department [address] [place] [address] Emergency Department Summary 10/30/24 MR#: [id number] Acct: [id number] Name: MARIMAR WANG Rep #: [id number] : 1960 64 From: Gaudencio Ambriz DO [...] therefore she was brought in for evaluation [facility] Medical History Squamous cell cancer [...] [facility] MENTAL HEALTH 6 09/01/24 History peg 351-pefwlsohknfl-lwzxeiy n 1 1 drp OP 4X/DAY DRY [...] Constipation Unknown History gram/dose oral powder (Miralax) onpnjx-fdodtldy-gbhtwvw See Rx Instructions PO .COMPLEX 09/01/24 Rx [...] Rx capsule,delayed (more content not included)... Normal [facility] HIP, UNI W/ Pelvis 2-3 Views on 10-30-2024 HIP, UNI W/ Pelvis 2-3 Views [facility] Imaging Services [address] [place], [place] [id number] HIP, UNI W/ Pelvis 2-3 Views MR#: [id number] Acct: [id number] Name: MARIMAR WANG Rep #: [id number] : 1960 F 64 From: Jaiden Mariee MD PCP: [facility] Ar[facility] Status: REG ER Study: HIP, UNI W/ Pelvis 2-3 Views Date of Exam: 11/20 Exam# [id number] Ordering Dr: Gaudencio Ambriz DO PROCEDURE: HIP, [...] lower left sacroiliac joint noted. Reading Location: [facility] CC: GEOLOGY ASSOCIATE-C Julio Arriaga; Gaudencio Ambriz DO Melt Supervisor: Signed Normal [facility] HISTORY PHYSICALon HISTORY PHYSICAL HNO ID: [id number] Author: ORTEGA CARDENAS MD Service: Radiology Author [...] 01/30/2019 Carotid artery stenosis bilateral- US in [facility] COPD (chronic obstructive pulmonary disease) (HCC) [...] mg by mouth once daily. 10/29/2024 Yes qkzfqu-mjeqxwql-jtmvrba (CREON 36) 36,000-114,000- 180,000 unit delayed release [...] Patient not taking: Reported on 10/30/2024 10/28/2024 plhocrlwbbBNJEJ-ptmokn-g idocaine (BMX 1:1:1) 1:1:1 liqd Take 10 mL by mouth every 4 hours as needed. iv contrast (will be provided with radiology test) CT Chest W -Inject, intravenously, once for 1 dose.No IV access, insert saline lock prior to the beginning of se (more content not included)... Normal [facility] IR FLU GD RIO CVA PLACEon IR FLU GD RIO CVA PLACE * * *Final Repor t* * * DATE OF EXAM: Oct 30 2024 2:27PM [facility] 7444 - IR FLU GD RIO [...] placed: Vaccess CT Power-Injectable Port with 8 Micronesian polyurethane catheter Catheter tip position: Cavoatrial junction [...] INSERTION OF RIGHT-SI (more content not included)... [facility] IR PORTOCATH PLACEMENTon IR PORTOCATH PLACEMENT * * *Final Report * * * DATE OF EXAM: Oct 30 2024 2:27PM [facility] 8966 - IR PORTOCATH PLACEMENT / [...] placed: Vaccess CT Power-Injectable Port with 8 Micronesian polyurethane catheter Catheter tip position: Cavoatrial junction [...] INSERTION OF RIGHT-NENITA (more content not included)... [facility] IR US VASCULAR ACCESS GUIDEo n 10-30-2024 IR US VASCULAR ACCESS GUIDE * * *Final Report* * * DATE OF EXAM: Oct 30 2024 2:27PM [facility] 7765 - IR US VASCULAR ACCESS [...] placed: Vaccess CT Power-Injectable Port with 8 Micronesian polyurethane catheter Catheter tip position: Cavoatrial junction [...] INSERTION OF RIGH (more content not included)... [facility] NURSING PROGon 10-30-2024 NURSING PROG HNO ID: [id number] Author: JACKIE CADNELARIA, RN Service: Nursing Author Type: Registered Nurse Type: Nursing Progress Note Filed: 11/02/2024 17:59 Note Text: Completed post procedure phone call. Vidya is feeling well and has returned to her baseline diet and activity. Vidya denies questions or concerns related to she appointment and had no surgical site concerns. [facility] NURSING PROG HNO ID: [id number] Author: RADHA QUIROZ, LÓPEZ Service: ? Author [...] (RECOMMENDATION): None Electronically Signed By: Radha Quiroz [facility] CNPNon 10-28-2024 CNPN [facility] CNOVon 10-27-2024 CNOV [facility] CBC W Auto Differential pane l (Bld)on 10-26-2024 Basophils (Bld) [#/Vol] 0.04 10*3/uL Normal <0.11 [facility] Comment on above: Order Comment: Speci men Type: BLOOD SPECIMENOrdering Facility: [facility] Address: [address] [place] [address] Performed By: #### 5 7021-8 ####[facility] MILLWNCLIA [id number] [place] [address] [place] Basophils/100 WBC (Bld) 1.7 % Normal [facility] Comment on above: Order Comment: Speci men Type: BLOOD SPECIMENOrdering Facility: [facility] Address: [address] [place] [address] Performed By: #### 5 7021-8 ####[facility] CENTERLIA [id number] [place] [address] [place] Differential cell count method Nom (Bld) Auto Normal [facility] Comment on above: Order Comment: Speci men Type: BLOOD SPECIMENOrdering Facility: [facility] Address: [address] [place] [address] Performed By: #### 5 7021-8 ####[facility] CENTERLIA [id number] [place] [address] [place] Eosinophils (Bld) [#/Vol] 10*3/uL Normal <0.46 [facility] Comment on above: Order Comment: Speci men Type: BLOOD SPECIMENOrdering Facility: [facility] Address: [address] [place] [address] Performed By: #### 5 7021-8 ####[facility] CENTERLIA [id number] [place] [address] [place] Eosinophils/100 WBC (Bld) 0.4 % Normal [facility] Comment on above: Order Comment: Speci men Type: BLOOD SPECIMENOrdering Facility: [facility] Address: [address] [place] [address] Performed By: #### 5 7021-8 ####[facility] FLORIDANCLIA [id number] [place] [address] [place] Erythrocyte distribution width (RBC) [Ratio] 19.6 % High 11.5-15.0 [facility] Comment on above: Order Comment: Speci men Type: BLOOD SPECIMENOrdering Facility: [facility] Address: [address] [place] [address] Performed By: #### 5 7021-8 ####[facility] [id number] [place] [address] [place] Hematocrit (Bld) [Volume fraction] 34.8 % Low 36.0-46.0 [facility] Comment on above: Order Comment: Speci men Type: BLOOD SPECIMENOrdering Facility: [facility] Address: [address] [place] [address] Performed By: #### 5 7021-8 ####[facility] [id number] [place] [address] [place] Hemoglobin (Bld) [Mass/Vol] 11.0 g/dL Low 11.5-15.5 [facility] Comment on above: Order Comment: Speci men Type: BLOOD SPECIMENOrdering Facility: [facility] Address: [address] [place] [address] Performed By: #### 5 7021-8 ####[facility] CENTERLIA [id number] [place] [address] [place] Immature granulocytes (Bld) [#/Vol] 10*3/uL Normal <0.10 [facility] Comment on above: Order Comment: Speci men Type: BLOOD SPECIMENOrdering Facility: [facility] Address: [address] [place] [address] Performed By: #### 5 7021-8 ####[facility] FLORIDANCLI [id number] [place] [address] [place] Immature granulocytes/100 WBC (Bld) 0.9 % Normal [facility] Comment on above: Order Comment: Speci men Type: BLOOD SPECIMENOrdering Facility: [facility] Address: [address] [place] [address] Performed By: #### 5 7021-8 ####[facility] ALYSSAJAZMYN [id number] [place] [address] [place] Lymphocytes (Bld) [#/Vol] 0.36 10*3/uL Low 1.00-4.00 [facility] Comment on above: Order Comment: Speci men Type: BLOOD SPECIMENOrdering Facility: [facility] Address: [address] [place] [address] Performed By: #### 5 7021-8 ####[facility] FL[facility]IDAZEVDEL[facility] [id number] [place] [address] [place] Lymphocytes/100 WBC (Bld) 15.3 % Normal [facility] Comment on above: Order Comment: Speci men Type: BLOOD SPECIMENOrdering Facility: [facility] Address: [address] [place] [address] Performed By: #### 5 7021-8 ####[facility] FLORIDANICOLE [id number] [place] [address] [place] MCH (RBC) [Entitic mass] 27.0 pg Normal 26.0-34.0 [facility] Comment on above: Order Comment: Speci men Type: BLOOD SPECIMENOrdering Facility: [facility] Address: [address] [place] [address] Performed By: #### 5 7021-8 ####[facility] FLORIDANCLIA [id number] [place] [address] [place] MCHC (RBC) [Mass/Vol] 31.6 g/dL Normal 30.5-36.0 [facility] Comment on above: Order Comment: Speci men Type: BLOOD SPECIMENOrdering Facility: [facility] Address: [address] [place] [address] Performed By: #### 5 7021-8 ####[facility]PITALWNCLIA [id number] [place] [address] [place] MCV (RBC) [Entitic vol] 85.3 fL Normal 80.0-100.[address] [facility] Comment on above: Order Comment: Speci men Type: BLOOD SPECIMENOrdering Facility: [facility] Address: [address] [place] [address] Performed By: #### 5 7021-8 ####[facility] CENTERLIA [id number] [place] [address] [place] Monocytes (Bld) [#/Vol] 0.32 10*3/uL Normal <0.87 [facility] Comment on above: Order Comment: Speci men Type: BLOOD SPECIMENOrdering Facility: [facility] Address: [address] [place] [address] Performed By: #### 5 7021-8 ####[facility]OSPITALA [id number] [place] [address] [place] Monocytes/100 WBC (Bld) 13.6 % Normal [facility] Comment on above: Order Comment: Speci men Type: BLOOD SPECIMENOrdering Facility: [facility] Address: [address] [place] [address] Performed By: #### 5 7021-8 ####[facility] CENTERLIA [id number] [place] [address] [place] Neutrophils (Bld) [#/Vol] 1.60 10*3/uL Normal 1.45-7.50 [facility] Comment on above: Order Comment: Speci men Type: BLOOD SPECIMENOrdering Facility: [facility] Address: [address] [place] [address] Performed By: #### 5 7021-8 ####[facility] FLORIDANCLI [id number] [place] [address] [place] Neutrophils/100 WBC (Bld) 68.1 % Normal [facility] Comment on above: Order Comment: Speci men Type: BLOOD SPECIMENOrdering Facility: [facility] Address: [address] [place] [address] Performed By: #### 5 7021-8 ####[facility] [id number] [place] [address] [place] Nucleated RBC (Bld) [#/Vol] 10*3/uL Normal <0.01 [facility] Comment on above: Order Comment: Speci men Type: BLOOD SPECIMENOrdering Facility: [facility] Address: [address] [place] [address] Performed By: #### 5 7021-8 ####[facility] [id number] [place] [address] [place] Nucleated RBC/100 WBC (Bld) [Ratio] 0.0 /100 WBC Normal [facility] Comment on above: Order Comment: Speci men Type: BLOOD SPECIMENOrdering Facility: [facility] Address: [address] [place] [address] Performed By: #### 5 7021-8 ####[facility] [id number] [place] [address] [place] Platelet mean volume (Bld) [Entitic vol] 9.6 fL Normal 9.0-12.7 [facility] Comment on above: Order Comment: Speci men Type: BLOOD SPECIMENOrdering Facility: [facility] Address: [address] [place] [address] Performed By: #### 5 7021-8 ####[facility] [id number] [place] [address] [place] Platelets (Bld) [#/Vol] 147 10*3/uL Low 150-400 [facility] Comment on above: Order Comment: Speci men Type: BLOOD SPECIMENOrdering Facility: [facility] Address: [address] [place] [address] Performed By: #### 5 7021-8 ####[facility] FLORIDANCLIA [id number] [place] [address] [place] RBC (Bld) [#/Vol] 4.08 10*6/uL Normal 3.90-5.20 [facility] Comment on above: Order Comment: Speci men Type: BLOOD SPECIMENOrdering Facility: [facility] Address: [address] [place] [address] Performed By: #### 5 7021-8 ####[facility] FLORIDANCLIA [id number] [place] [address] [place] WBC (Bld) [#/Vol] 2.35 10*3/uL Low 3.70-11.00 [facility] Comment on above: Order Comment: Speci men Type: BLOOD SPECIMENOrdering Facility: [facility] Address: [address] [place] [address] Performed By: #### 5 7021-8 ####[facility] FLORIDANCLIA [id number] [address] [place] Jeremy 10-26-2024 [facility] Tele[facility] (AVXRPR) -------- MARIMAR WANG ([id number]) 1960 F Date Time Provider Department 10/26/24 [...] mouth every 6 hours as needed. - fkhwszblwiPLAFV-wqcoaj-k idocaine (BMX 1:1:1) 1:1:1 liqd Take 10 [...] 80 mg by mouth once daily. - vwxobb-xagaoujt-pkolpro (CREON 36) 36,000-114,000- 180,000 unit delayed release [...] Comments as of 02/06/2017: Xeljanz use pharmacy [facility] [place] [address] Problem List As Of Date 10/26/2024 Noted [...] [G47.00] 09/03/2014 (more content not included)... Normal [facility] CNPN Telephone (AVXRPR) -------- MARIMAR WANG ([id number]) 1960 F Date Time Provider Department 10/26/24 JESSICA DIAS During your visit today, we recorded the following information about you: Jessica Dias, LÓPEZ 10/26/2024 4:13 PM Signed You are scheduled for a medi port placement, On 10/30/2024. You are to arrive at 1200 pm and Report to [facility]: [facility]: Radiology Outpatient Desk [id number] You can [...] Labs: Lab-work needs to be drawn? No.. Purchasing Officer/Transportation: How will you be arriving for your procedure? Private car. You will need a responsible adult to accompany you to and from the procedure. Your patrol driver is required to stay with you until you are taken into the procedure room. Call [phone] with questions Allergies As of Date: 10/26/2024 [...] mouth every 6 hours as needed. - gieqxpqcgrHTBPF-rsrecv-r idocaine (BMX 1:1:1) 1:1:1 liqd Take 10 [...] 80 mg by mouth once daily. - wskjff-zxbfnjwe-tjactom (CREON 36) 36,000-114,000- 180,000 unit delayed release [...] 1 t (more content not included)... Normal [facility] CNPN Normal [facility] L499.0042on 10-25-2024 Trop T High Sen 13 ng/L Normal <=14 [facility] Comment on above: Result Comment: Hemo lysis present, Results??could be affected. ?? Performed By: #### L 499.0042 #### [facility] [address] [place], [address] 12 Lead EKGon 10-24-2024 12 Lead EKG [facility] Cardiovascular Services [address] [place] [address] 12 Lead EKG 10/24/242128 MR#: [id number] Acct: [id number] Name: MARIMAR WANG Rep #: [id number] : 1960 64 From: Ortega Wallis MD [...] in Lateral leads Confirmed by Ortega Wallis ([id number]), proposal editor SARAH SIDDIQI ([id number]) on 10/29/2024 10:02:59 AM Referred By: Confirmed By: Ortega Wallis 10/29/24 1003 Date Ortega Wallis MD CC: [facility]; [facility] Bates; Dr. Rigoberto Dow, Signed Normal [facility] Abdomen/Pelvis W IV Cont ONL Yon 10-24-2024 Abdomen/Pelvis W IV Cont ONLY [facility] Imaging Services [address] [place], [place] [id number] Abdomen/Pelvis W IV Cont ONLY MR#: [id number] Acct: [id number] Name: MARIMAR WANG Rep #: [id number] : 1960 F 64 From: Betsey Obrien MD PCP: [facility] Status: REG ER Study: Abdomen/Pelvis W IV Cont ONLY Date of Exam: Exam# [id number] Ordering Dr: Josh Bates [facility] ASSOCIATERowan PROCEDURE: ABDOMEN/PELVIS W IV CONT ONLY 10/24/2024 [...] a chronic postinfectious/inflammat ory process. [facility] CC: [facility]; [facility] Melt Supervisor: Signed Normal [facility] Absolute lymphocyte countOrd ered By: Josh Bates on 10-24-2024 Lymphocytes Auto (Unsp spec) [#/Vol] 0.48 10*3/uL Low 0.83-4.51 [facility] Absolute neutrophil countOrd ered By: Josh Bates on 10-24-2024 Neutrophils (Bld) [#/Vol] 1.5 10*3/uL Low 2.0-7.7 [facility] Anion gap in Serum or Plasma Ordered By: Josh Bates on 10-24-2024 Anion gap [Moles/Vol] 11 mmol/L 5-15 [facility] Automated lymphocyte count a s percentage of total leukocytesOrdered By: Josh Bates on 10-24-2024 Lymphocytes/100 WBC Auto (Unsp spec) 18.2 % Low 19-41 [facility] BUN/creatinine ratioOrdered By: Josh Bates on 10-24-2024 Urea nitrogen/Creatinine [Mass ratio] 11.6 mg/mg 10- [facility] Basic Metabolic Profile (BMP )on 10-24-2024 BUN/CRE 11.6 RATIO Normal - [facility] Comment on above: Performed By: #### L 100.0100, L500.2500 #### [facility] [address] [place], [address] Calcium [Mass/Vol] 8.9 mg/dL Normal 7.6-11.0 [facility] Comment on above: Performed By: #### L 100.0100, L500.2500 #### [facility] [address] [place], [address] Chloride [Moles/Vol] 105 mmol/L Normal 98-108 [facility] Comment on above: Performed By: #### L 100.0100, L500.2500 #### [facility] [address] [place], [address] CO2 [Moles/Vol] 21.7 mmol/L Normal 21.0-32.0 [facility] Comment on above: Performed By: #### L 100.0100, L500.2500 #### [facility] [address] [place], [address] Creatinine [Mass/Vol] 0.67 mg/dL Low 0.70-1.20 [facility] Comment on above: Performed By: #### L 100.0100, L500.2500 #### [facility] [address] [place], [address] ECRCL 73.11 ml/min Normal 50-250 [facility] Comment on above: Performed By: #### L 100.0100, L500.2500 #### [facility] [address] [place], [address] GAP 11 Normal 5-15 [facility] Comment on above: Performed By: #### L 100.0100, L500.2500 #### [facility] [address] [place], [address] GFR/1.73 sq M.predicted among non-blacks MDRD (S/P/Bld) [Vol rate/Area] 97 mL/min/{1.73_m2} Normal >60 [facility] Comment on above: Result Comment: mL/m in/1.73m2 CKD-EPI Creatinine Equation (2020) Performed By: #### L 100.0100, L500.2500 #### [facility] [address] [place], [address] Glucose [Mass/Vol] 85 mg/dL Normal 70-99 [facility] Comment on above: Performed By: #### L 100.0100, L500.2500 #### [facility] [address] [place], [address] Potassium [Moles/Vol] 3.1 mmol/L Low 3.3-5.1 [facility] Comment on above: Performed By: #### L 100.0100, L500.2500 #### [facility] [address] [place], [address] Sodium [Moles/Vol] 137 mmol/L Normal 133-145 [facility] Comment on above: Performed By: #### L 100.0100, L500.2500 #### [facility] [address] [place], [address] Urea nitrogen [Mass/Vol] 8 mg/dL Normal 4-19 [facility] Comment on above: Performed By: #### L 100.0100, L500.2500 #### [facility] [address] [place], [address] Basophil percentageOrdered B y: Josh Bates on 10-24-2024 Basophils/100 WBC (Bld) 0.8 % 0-1 [facility] Bilirubin Test strip Ql (U)O rdered By: Josh Bates on 10-24-2024 Bilirubin Ql (U) Negative Negative [facility] Blood manual differential co mment interpretation (narrative result)Ordered By: Josh Bates on 10-24-2024 Manual differential comment Yair (Bld) [Interp] SCANNED [facility] Comment on above: LYMPHOPENIA PRESENT CTA Chest W/WO Contraston CTA Chest W/WO Contrast [facility] Imaging Services [address] [facility] [place] [address] CTA Chest W/WO Contrast MR#: [id number] Acct: [id number] Name: MARIMAR WANG Rep #: [id number] : 1960 F 64 From: Betsey Obrien MD PCP: SINAI Arriola Status: REG ER Study: CTA Chest W/WO Contrast Date of Exam: 10/24/24 Exam# [id number] Ordering Dr: Josh Bates GEOLOGY ASSOCIATEMadayC PROCEDURE: CTA CHEST W/WO CONTRAST 10/24/2024 REASON [...] Location: [facility] CC: SINAI Arriaga; SINAI Bates Melt Supervisor: Signed Normal [facility] Carbon dioxide, total [Moles /volume] in Central venous bloodOrdered By: Josh Bates on 10-24-2024 CO2 [Moles/Vol] 21.7 mmol/L 21.0-32.0 [facility] Chloride assayOrdered By: Cy Bates on 10-24-2024 Chloride [Moles/Vol] 105 mmol/L 98-108 [facility] Emergency Department Summary on 10-24-2024 Emergency Department Summary [facility] Medical Records Department [address] [place] [address] Emergency Department Summary 10/24/24 MR#: [id number] Acct: [id number] Name: MARIMAR WANG Rep #: [id number] : 1960 64 From: [place] Napier PCP: Julio Arriaga, GEOLOGY ASSOCIATE-C Status:DEP ER Location: ED HPI History of [...] who told him to go to the [facility] apartment. Patient also states that over the [...] who told him to go to the [facility] apartment. Patient also states that over the last several weeks has been having difficulty urinating, and not feeling like she is emptying. [facility] Medical History Squamous cell cancer [...] [facility] 6 09/01/24 History peg 137-wislsnpyddgy-ehuqnfo n 1 1 drp OP 4X/DAY DRY [...] 10/02/24. Instru (more content not included)... Normal [facility] Eosinophil percentageOrdered By: Josh Bates on 10-24-2024 Eosinophils/100 WBC (Bld) 0.8 % 0-5 [facility] Epithelial cells.squamous LM Ql (Urine sed)Ordered By: Josh Bates on 10-24-2024 Epithelial cells.squamous LM.HPF (Urine sed) [#/Area] 0 /[HPF] 5-10 [facility] Erythrocyte distribution wid th ratioOrdered By: Josh Bates on 10-24-2024 Erythrocyte distribution width (RBC) [Ratio] 18.9 % High 11.6-14.6 [facility] Erythrocyte distribution wid th standard deviationOrdered By: Josh Bates on 10-24-2024 Erythrocyte distribution width (RBC) [Entitic vol] 54.4 fL High 35.1-43.9 [facility] Erythrocyte distribution width (RBC) [Ratio] 54.4 fl High 35.1-43.9 [facility] Estimation of creatinine olga aranceOrdered By: Josh Bates on 10-24-2024 Estimated Creatinine Clearance Calc 73.11 ml/min 50-250 [facility] GFR/1.73 sq M.predicted brunilda g non-blacks MDRD (S/P/Bld) [Vol rate/Area]Ordered By: Josh Bates on 10-24-2024 Estimated GFR (MDRD) Non-Af Amer 97 >60 [facility] Comment on above: mL/min/1.73m2 CKD-EP I Creatinine Equation (2020) Glomerular filtration rate ( GFR) estimation/1.73 sq m using serum, plasma, or whole bOrdered By: Josh Bates on 10-24-2024 GFR/1.73 sq M.predicted among non-blacks MDRD (S/P/Bld) [Vol rate/Area] 97 mL/min/{1.73_m2} >60 [facility] Comment on above: mL/min/1.73m2 CKD-EP I Creatinine Equation (2020) Glucose Ql (U)Ordered By: Cy Bates on 10-24-2024 Urine Glucose (UA) Normal mg/dl Normal [facility] Hematocrit Auto (Bld) [Volum e fraction]Ordered By: Josh Bates on 10-24-2024 Hematocrit (Bld) [Volume fraction] 31.2 % Low 37-47 [facility] Hemoglobin measurementOrdere d By: Josh Bates on 10-24-2024 Hemoglobin (Bld) [Mass/Vol] 10.1 g/dL Low 12.0-15.0 [facility] Immature granulocytes/100 WB C Auto (Bld)Ordered By: Josh Bates on 10-24-2024 Immature granulocytes/100 WBC (Bld) 0.400 % 0.0-0.9 [facility] Comment on above: IG% - Immature Granu locytes (promyelocytes, myelocytes and metamyelocytes) > 1% indicates that a LEFT SHIFT is Present. Influenza virus A and B and SARS-CoV-2 (COVID-19) and Respiratory syncytial virus RNAOrdered By: Josh Bates on 10-24-2024 SARS-CoV-2 (COVID-19) RNA CORAL+probe Ql (Unsp spec) [facility] Ketones Test strip Ql (U)Ord ered By: Josh Bates on 10-24-2024 Ketones Ql (U) Negative Negative [facility] L501.4021on 10-24-2024 Trop T High Sen 14 ng/L Normal <=14 [facility] Comment on above: Performed By: #### L 503.7505, L501.4021 ####[facility] [address] [place], [address] L503.7505on 10-24-2024 Natriuretic peptide B (Bld) [Mass/Vol] 1345 pg/mL High <=900 [facility] Comment on above: Result Comment: Hear t Failure Unlikely: < 300 pg/mL Heart Failure Likely < 50 Years: > 450 pg/mL 50-75 Years: > 900 pg/mL >75 Years: > 1800 pg/mL Performed By: #### L 503.7505, L501.4021 ####[facility] [address] [place], [place], [id number] Laboratory - Chemistry and C hemistry - challengeOrdered By: Josh Bates on 10-24-2024 Natriuretic peptide B (Bld) [Mass/Vol] 1345 pg/mL High <900 [facility] Comment on above: Heart Failure Unlike ly: < 300 pg/mLHeart Failure Likely< 50 Years: > 450 pg/mL50-75 Years: > 900 pg/mL>75 Years: > 1800 pg/mL Lymphocytes Auto (Unsp spec) [#/Vol]Ordered By: Josh Bates on 10-24-2024 Lymphocytes (Bld) [#/Vol] 0.48 10*3/uL Low 0.83-4.51 [facility] Lymphocytes/100 WBC Auto (Un sp spec)Ordered By: Josh Bates on 10-24-2024 Lymphocytes/100 WBC (Bld) 18.2 % Low 19-41 [facility] M100.678on 10-24-2024 M100.678 SARS-CoV-2 (COVID 19 ) Negative INFLUENZA A Negative INFLUENZA B Negative RSV PCR Negative Normal [facility] Comment on above: Performed By: #### M 100.678 ####[facility] [address] [place], [place], [id number] MCV (mean corpuscular volume ) determinationOrdered By: Josh Bates on 10-24-2024 MCV (RBC) [Entitic vol] 84.6 fL 81-99 [facility] Manual differential comment Yair (Bld) [Interp]Ordered By: Josh Bates on 10-24-2024 Differential Comment SCANNED [facility] Comment on above: LYMPHOPENIA PRESENT Mean corpuscular hemoglobin (MCH) determinationOrdered By: Josh Bates on 10-24-2024 MCH (RBC) [Entitic mass] 27.4 pg 27.0-32.0 [facility] Mean corpuscular hemoglobin concentration (MCHC) determinationOrdered By: Josh Bates on 10-24-2024 MCHC (RBC) [Mass/Vol] 32.4 g/dL 32-36 [facility] Mean platelet volume determi nationOrdered By: Josh Bates on 10-24-2024 Platelet mean volume (Bld) [Entitic vol] 10.2 fL 6.2-12.0 [facility] Microscopic analysis of urin e for red blood cells (RBC)Ordered By: Josh Bates on 10-24-2024 Microscopic analysis of urine for red blood cells (RBC) 0 SEEN /hpf 0-5 [facility] Urine RBC 0 SEEN /hpf 0-5 [facility] Monocyte percentageOrdered B y: Josh Bates on 10-24-2024 Monocytes/100 WBC (Bld) 24.2 % High 0-10 [facility] Mucus LM Ql (Urine sed)Order ed By: Josh Bates on 10-24-2024 Mucus Ql (Urine sed) 0 SEEN /hpf [facility] Neutrophil percentageOrdered By: Josh Bates on 10-24-2024 Neutrophils/100 WBC (Bld) 55.6 % 47-70 [facility] Nitrite Test strip Ql (U)Ord ered By: Josh Bates on 10-24-2024 Nitrite Ql (U) Negative Negative [facility] No Panel InformationOrdered By: Josh Bates on 10-24-2024 Troponin T High Sensitivity 14 ng/L <14 [facility] Nucleated red blood cell per centageOrdered By: Josh Bates on 10-24-2024 Nucleated RBC/100 WBC (Bld) [Ratio] 0 % 0-5 [facility] Pathologist review Yair (Unsp spec) [Interp]Ordered By: Josh Bates on 10-24-2024 Differential Pathologist's Review May foll [facility] Platelet countOrdered By: Cy Bates on 10-24-2024 Platelets (Bld) [#/Vol] 110 10*3/uL Low 150-450 [facility] Potassium (Unsp spec) [Mass/ Vol]Ordered By: Josh Bates on 10-24-2024 Potassium [Moles/Vol] 3.1 mmol/L Low 3.3-5.1 [facility] Potassium measurement (mass/ volume)Ordered By: Josh Bates on 10-24-2024 Potassium (Unsp spec) [Mass/Vol] 3.1 mmol/L Low 3.3-5.1 [facility] Protein Test strip Ql (U)Ord ered By: Josh Bates on 10-24-2024 Protein Ql (U) 15 mg/dl High Negative [facility] RBC Auto (Bld) [#/Vol]Ordere d By: Josh Bates on 10-24-2024 RBC (Bld) [#/Vol] 3.69 10*6/uL Low 4.2-5.4 [facility] Review by pathologistOrdered By: Josh Bates on 10-24-2024 Pathologist review Yair (Unsp spec) [Interp] N/A [facility] Comment on above: Pathology review can celed due to updated review criteria.Previous reported result: Mary swain Edited by: TIFF on 12/03/24:1202 AMENDED REPORT 12/03/24 1202 PATH REV previously reported as: Mary swain Serum creatinine measurement (mass/volume)Ordered By: Josh Bates on 10-24-2024 Creatinine [Mass/Vol] 0.67 mg/dL Low 0.70-1.20 [facility] Serum glucose measurement (m ass/volume)Ordered By: Josh Bates on 10-24-2024 Glucose [Mass/Vol] 85 mg/dL 70-99 [facility] Serum or plasma calcium alexis urement (mass/volume)Ordered By: Josh Bates on 10-24-2024 Calcium [Mass/Vol] 8.9 mg/dL 7.6-11.0 [facility] Serum or plasma urea nitroge n measurement (mass/volume)Ordered By: Josh Bates on 10-24-2024 Urea nitrogen [Mass/Vol] 8 mg/dL 4-19 [facility] Sodium levelOrdered By: Josh Bates on 10-24-2024 Sodium [Moles/Vol] 137 mmol/L 133-145 [facility] Squamous epithelial cells de tection in urine sediment by light microscopyOrdered By: Josh Bates on 10-24-2024 Epithelial cells.squamous LM Ql (Urine sed) 0 SEEN /hpf -10 [facility] Troponin T.cardiac High sens itivity method [Mass/Vol]Ordered By: Josh Bates on 10-24-2024 Troponin T High Sensitivity 2 Hour 13 ng/L <14 [facility] Comment on above: Hemolysis present, R esults could be affected. Troponin T.cardiac [Mass/vol ume] in Serum or Plasma by High sensitivity methodOrdered By: Josh Bates on 10-24-2024 Troponin T.cardiac High sensitivity method [Mass/Vol] 13 ng/L <14 [facility] Comment on above: Hemolysis present, R esults could be affected. Urinalysis, Completeon 10-24 BACTERIA 0 SEEN Normal None Seen [facility] Comment on above: Order Comment: RENALDO TER SPECIMEN Performed By: #### L 400.0001 #### [facility] [address] [place], [address] EPI,SQUAMOUS 0 SEEN Normal - [facility] Comment on above: Order Comment: RENALDO TER SPECIMEN Performed By: #### L 400.0001 #### [facility] [address] [place], [address] Mucus Ql (Urine sed) 0 SEEN Normal [facility] Comment on above: Order Comment: RENALDO TER SPECIMEN Performed By: #### L 400.0001 #### [facility] [address] [place], [address] RBC 0 SEEN Normal 0-5 [facility] Comment on above: Order Comment: RENALDO TER SPECIMEN Performed By: #### L 400.0001 #### [facility] [address] [place], [address] WBC 0 SEEN Normal 0-5 [facility] Comment on above: Order Comment: RENALDO TER SPECIMEN Performed By: #### L 400.0001 #### [facility] [address] [place], [address] Urine blood detectionOrdered By: Josh Bates on 10-24-2024 Urine Occult Blood 10 /ul High Negative [facility] Urine clarityOrdered By: Maegan Bates on 10-24-2024 Clarity (U) Clear Clear [facility] Urine color determinationOrd ered By: Josh Bates on 10-24-2024 Color (U) Yellow Yellow [facility] Urine glucose detectionOrder ed By: Josh Bates on 10-24-2024 Glucose Ql (U) Normal mg/dl Normal [facility] Urine leukocyte esterase det ection by dipstickOrdered By: Josh Bates on 10-24-2024 Leukocyte esterase Test strip Ql (U) Negative Negative [facility] Urine pHOrdered By: Josh russ on 10-24-2024 pH (U) 6.0 [pH] 5.0 - 8.0 [facility] Urine sediment bacteria coun t by microscopy (number/high power field)Ordered By: Josh Bates on 10-24-2024 Bacteria LM.HPF (Urine sed) [#/Area] 0 /[HPF] None Seen [facility] Urine specific gravity measu rementOrdered By: Josh Bates on 10-24-2024 Specific gravity (U) [Rel density] 1.010 1.002-1.030 [facility] Urine urobilinogen measureme ntOrdered By: Josh Bates on 10-24-2024 Urobilinogen Ql (U) Normal mg/dl Normal [facility] Urobilinogen Ql (U)Ordered B y: Josh Bates on 10-24-2024 Urine Urobilinogen Normal mg/dl Normal [facility] White blood cell (WBC) count Ordered By: Josh Bates on 10-24-2024 WBC (Bld) [#/Vol] 2.6 10*3/uL Low 4.4-11.0 [facility] White blood cell countOrdere d By: Josh Bates on 10-24-2024 Urine WBC 0 SEEN /hpf 0-5 [facility] White blood cell count 0 SEEN /hpf 0-5 [facility] Urinalysis complete panel (U )on 10-22-2024 Bacteria uL 1121.1 uL High - 941 uL [facility] Bilirubin Ql (U) Negative Negative [facility] Clarity (Unsp spec) Clear Clear [facility] Color (U) Yellow Yellow [facility] Epithelial cells LM.HPF (Urine sed) [#/Area] None Seen /HPF [facility] Glucose Test strip (U) [Mass/Vol] Negative Negative [facility] Hemoglobin Ql (U) Negative Negative [facility] Hyaline casts (Urine sed) [#/Area] 0 /[LPF] 0 /LPF [facility] Interpretation and review of laboratory results Abnormal [facility] Ketones Ql (U) Trace Abnormal Negative [facility] Leukocyte esterase Test strip Ql (U) Negative Negative [facility] Nitrite Ql (U) Negative Negative [facility] pH (U) 6 [pH] NINF - 8.5 [facility] Protein (U) [Mass/Vol] 1+ Abnormal Negative [facility] RBC LM.HPF (Urine sed) [#/Area] 3-5 /HPF Abnormal 0-2 /HPF [facility] Specific gravity (U) [Rel density] 1.024 1.005 - 1.030 [facility] Urobilinogen Ql (U) 0.2 EU/dL 0.2-1.0 EU/dL [facility] WBC LM.HPF (Urine sed) [#/Area] 6-10 /HPF Abnormal 0-5 /HPF [facility] This test was candelaria chaudhary and its performance characteristics determined by [facility]'s [facility] Pathology and Laboratory Medicine [place] ([facility]). It has not been cleared or approved by the FDA. [facility] is regulated under CLIA as qualified to perform high-complexity testing. This test is used for clinical purposes. It should not be regarded as investigational or for research. [facility] BACTERIA UL 1121.1 uL High Negative [facility] Comment on above: Order Comment: Speci men Type: URINE SPECIMENOrdering Facility: [facility] Address: [address] [place] [address] Performed By: #### 2 4356-8 ####[facility] LABCLIA [id number] [place] [address] [place] Bilirubin Ql (U) Negative Normal Negative [facility] Comment on above: Order Comment: Speci men Type: URINE SPECIMENOrdering Facility: [facility] Address: [address] [place] [id number] Performed By: #### 2 4356-8 ####[facility] LABCLIA [id number] [address], [facility]95 [place] Clarity (Unsp spec) Clear Normal Clear [facility] Comment on above: Order Comment: Speci men Type: URINE SPECIMENOrdering Facility: [facility] Address: [address] [place] [address] Performed By: #### 2 4356-8 ####[facility] LABCLIA [id number] [place] [address] [place] Color (U) Yellow Normal Yellow [facility] Comment on above: Order Comment: Speci men Type: URINE SPECIMENOrdering Facility: [facility] Address: [address] [place] [address] Performed By: #### 2 4356-8 ####[facility] LABIA [id number] [address], [place] [address] [place] Epithelial cells LM.HPF (Urine sed) [#/Area] None Seen Normal [facility] Comment on above: Order Comment: Speci men Type: URINE SPECIMENOrdering Facility: [facility] Address: [address] [place] [address] Performed By: #### 2 4356-8 ####[facility] LABCLIA [id number] [address], [facility]95 [place] Glucose Test strip (U) [Mass/Vol] Negative Normal Negative [facility] Comment on above: Order Comment: Speci men Type: URINE SPECIMENOrdering Facility: [facility] Address: [address] [place] [address] Performed By: #### 2 4356-8 ####[facility] LABCLIA [id number] [place] [id number] [place] Hemoglobin Ql (U) Negative Normal Negative [facility] Comment on above: Order Comment: Speci men Type: URINE SPECIMENOrdering Facility: [facility] Address: [address] [place] [address] Performed By: #### 2 4356-8 ####[facility] LABCLIA [id number] [address] [place] [address] [place] Hyaline casts (Urine sed) [#/Area] 0 /[LPF] Normal 0 /LPF [facility] Comment on above: Order Comment: Speci men Type: URINE SPECIMENOrdering Facility: [facility] Address: [address] [place] [address] Performed By: #### 2 4356-8 ####[facility] LABCLIA [id number] [address], [facility]95 [place] Ketones Ql (U) Trace Abnormal Negative [facility] Comment on above: Order Comment: Speci men Type: URINE SPECIMENOrdering Facility: [facility] Address: [address] [place] [address] Performed By: #### 2 4356-8 ####[facility] LABCLIA [id number] [address], [facility]95 [place] Leukocyte esterase Test strip Ql (U) Negative Normal Negative [facility] Comment on above: Order Comment: Speci men Type: URINE SPECIMENOrdering Facility: [facility] Address: [address] [place] [address] Performed By: #### 2 4356-8 ####[facility] LABCLIA [id number] [address] [place] [address] [place] Nitrite Ql (U) Negative Normal Negative [facility] Comment on above: Order Comment: Speci men Type: URINE SPECIMENOrdering Facility: [facility] Address: [address] [place] [address] Performed By: #### 2 4356-8 ####[facility] LABCLIA [id number] [address] [place] [address] [place] pH (U) 6.0 [pH] Normal <8.5 [facility] Comment on above: Order Comment: Speci men Type: URINE SPECIMENOrdering Facility: [facility] Address: [address] [place] [address] Performed By: #### 2 4356-8 ####[facility] LABIA [id number] [place] [address] [place] Protein (U) [Mass/Vol] 1+ Abnormal Negative [facility] Comment on above: Order Comment: Speci men Type: URINE SPECIMENOrdering Facility: [facility] Address: [address] [place] [address] Performed By: #### 2 4356-8 ####[facility] LABIA [id number] [place] [address] [place] RBC LM.HPF (Urine sed) [#/Area] 3-5 /HPF Abnormal 0-2 /HPF [facility] Comment on above: Order Comment: Speci men Type: URINE SPECIMENOrdering Facility: [facility] Address: [address] [place] [address] Performed By: #### 2 4356-8 ####[facility] [id number] [address] [place] Specific gravity (U) [Rel density] 1.024 Normal 1.005-1.030 [facility] Comment on above: Order Comment: Speci men Type: URINE SPECIMENOrdering Facility: [facility] Address: [address] [place] [address] Performed By: #### 2 4356-8 ####[facility] [id number] [place] [address] [place] Urobilinogen Ql (U) 0.2 EU/dL Normal 0.2-1.0 EU/dL [facility] Comment on above: Order Comment: Speci men Type: URINE SPECIMENOrdering Facility: [facility] Address: [address] [place] [address] Performed By: #### 2 4356-8 ####[facility] [id number] [place] [address] [place] WBC LM.HPF (Urine sed) [#/Area] 6-10 /HPF Abnormal 0-5 /HPF [facility] Comment on above: Order Comment: Speci men Type: URINE SPECIMENOrdering Facility: [facility] Address: [address] [place] [address] Performed By: #### 2 4356-8 ####[facility] LABIA [id number] [place] [address] [place] CNPNon 10-21-2024 CNPN Normal [facility] CNOVon 10-20-2024 CNOV Normal [facility] CBC W Auto Differential pane l (Bld)on 10-19-2024 Basophils (Bld) [#/Vol] 10*3/uL Normal <0.[address] [facility] Comment on above: Order Comment: Speci men Type: BLOOD SPECIMENOrdering Facility: [facility] Address: [address] [place] [address] Performed By: #### 5 7021-8 ####[facility] [id number] [place] [address] [place] Basophils/100 WBC (Bld) 0.4 % Normal [facility] Comment on above: Order Comment: Speci men Type: BLOOD SPECIMENOrdering Facility: [facility] Address: [address] [place] [address] Performed By: #### 5 7021-8 ####[facility] [id number] [place] [address] [place] Differential cell count method Nom (Bld) Auto Normal [facility] Comment on above: Order Comment: Speci men Type: BLOOD SPECIMENOrdering Facility: [facility] Address: [address] [place] [address] Performed By: #### 5 7021-8 ####[facility] MILLWNCLIA [id number] [place] [address] [place] Eosinophils (Bld) [#/Vol] 0.03 10*3/uL Normal <0.46 [facility] Comment on above: Order Comment: Speci men Type: BLOOD SPECIMENOrdering Facility: [facility] Address: [address] [place] [address] Performed By: #### 5 7021-8 ####[facility] CENTERLIA [id number] [place] [address] [place] Eosinophils/100 WBC (Bld) 1.2 % Normal [facility] Comment on above: Order Comment: Speci men Type: BLOOD SPECIMENOrdering Facility: [facility] Address: [address] [place] [address] Performed By: #### 5 7021-8 ####[facility] CENTERLIA [id number] [place] [address] [place] Erythrocyte distribution width (RBC) [Ratio] 17.1 % High 11.5-15.0 [facility] Comment on above: Order Comment: Speci men Type: BLOOD SPECIMENOrdering Facility: [facility] Address: [address] [place] [address] Performed By: #### 5 7021-8 ####[facility]ITALWNCL[facility] [id number] [place] [address] [place] Hematocrit (Bld) [Volume fraction] 34.3 % Low 36.0-46.0 [facility] Comment on above: Order Comment: Speci men Type: BLOOD SPECIMENOrdering Facility: [facility] Address: [address] [place] [address] Performed By: #### 5 7021-8 ####[facility] CENTERLIA [id number] [place] [address] [place] Hemoglobin (Bld) [Mass/Vol] 10.8 g/dL Low 11.5-15.5 [facility] Comment on above: Order Comment: Speci men Type: BLOOD SPECIMENOrdering Facility: [facility] Address: [address] [place] [address] Performed By: #### 5 7021-8 ####[facility] [id number] [place] [address] [place] Immature granulocytes (Bld) [#/Vol] 10*3/uL Normal <0.10 [facility] Comment on above: Order Comment: Speci men Type: BLOOD SPECIMENOrdering Facility: [facility] Address: [address] [place] [address] Performed By: #### 5 7021-8 ####[facility] [id number] [place] [address] [place] Immature granulocytes/100 WBC (Bld) 0.4 % Normal [facility] Comment on above: Order Comment: Speci men Type: BLOOD SPECIMENOrdering Facility: [facility] Address: [address] [place] [address] Performed By: #### 5 7021-8 ####[facility]ITALA [id number] [place] [address] [place] Lymphocytes (Bld) [#/Vol] 0.26 10*3/uL Low 1.00-4.00 [facility] Comment on above: Order Comment: Speci men Type: BLOOD SPECIMENOrdering Facility: [facility] Address: [address] [place] [address] Performed By: #### 5 7021-8 ####[facility] CENTERLIA [id number] [place] [address] [place] Lymphocytes/100 WBC (Bld) 10.4 % Normal [facility] Comment on above: Order Comment: Speci men Type: BLOOD SPECIMENOrdering Facility: [facility] Address: [address] [place] [address] Performed By: #### 5 7021-8 ####[facility] ALYSSAJamirNCBLAKE [id number] [place] [address] [place] MCH (RBC) [Entitic mass] 26.9 pg Normal 26.0-34.0 [facility] Comment on above: Order Comment: Speci men Type: BLOOD SPECIMENOrdering Facility: [facility] Address: [address] [place] [address] Performed By: #### 5 7021-8 ####[facility]ID[facility] [id number] [place] [address] [place] MCHC (RBC) [Mass/Vol] 31.5 g/dL Normal 30.5-36.0 [facility] Comment on above: Order Comment: Speci men Type: BLOOD SPECIMENOrdering Facility: [facility] Address: [address] [place] [address] Performed By: #### 5 7021-8 ####[facility] FLORIDANCA [id number] [place] [address] [place] MCV (RBC) [Entitic vol] 85.5 fL Normal 80.0-100.[address] [facility] Comment on above: Order Comment: Speci men Type: BLOOD SPECIMENOrdering Facility: [facility] Address: [address] [place] [address] Performed By: #### 5 7021-8 ####[facility] FLORIDANCA [id number] [place] [address] [place] Monocytes (Bld) [#/Vol] 0.36 10*3/uL Normal <0.87 [facility] Comment on above: Order Comment: Speci men Type: BLOOD SPECIMENOrdering Facility: [facility] Address: [address] [place] [address] Performed By: #### 5 7021-8 ####[facility] ALYSSAALBANYZEVLIA [id number] [place] [address] [place] Monocytes/100 WBC (Bld) 14.4 % Normal [facility] Comment on above: Order Comment: Speci men Type: BLOOD SPECIMENOrdering Facility: [facility] Address: [address] [place] [address] Performed By: #### 5 7021-8 ####[facility] CENTERLIA [id number] [place] [address] [place] Neutrophils (Bld) [#/Vol] 1.83 10*3/uL Normal 1.45-7.50 [facility] Comment on above: Order Comment: Speci men Type: BLOOD SPECIMENOrdering Facility: [facility] Address: [address] [place] [address] Performed By: #### 5 7021-8 ####[facility]ITALA [id number] [place] [address] [place] Neutrophils/100 WBC (Bld) 73.2 % Normal [facility] Comment on above: Order Comment: Speci men Type: BLOOD SPECIMENOrdering Facility: [facility] Address: [address] [place] [address] Performed By: #### 5 7021-8 ####[facility] CENTERLIA [id number] [place] [address] [place] Nucleated RBC (Bld) [#/Vol] 10*3/uL Normal <0.01 [facility] Comment on above: Order Comment: Speci men Type: BLOOD SPECIMENOrdering Facility: [facility] Address: [address] [place] [address] Performed By: #### 5 7021-8 ####[facility] CENTERLIA [id number] [place] [address] [place] Nucleated RBC/100 WBC (Bld) [Ratio] 0.0 /100 WBC Normal [facility] Comment on above: Order Comment: Speci men Type: BLOOD SPECIMENOrdering Facility: [facility] Address: [address] [place] [address] Performed By: #### 5 7021-8 ####[facility] FLORIDAINCOLE [id number] [place] [address] [place] Platelet mean volume (Bld) [Entitic vol] 10.8 fL Normal 9.0-12.7 [facility] Comment on above: Order Comment: Speci men Type: BLOOD SPECIMENOrdering Facility: [facility] Address: [address] [place] [address] Performed By: #### 5 7021-8 ####[facility] FLORIDAZEVFroy [id number] [place] [address] [place] Platelets (Bld) [#/Vol] 118 10*3/uL Low 150-400 [facility] Comment on above: Order Comment: Speci men Type: BLOOD SPECIMENOrdering Facility: [facility] Address: [address] [place] [address] Performed By: #### 5 7021-8 ####[facility] CENTERBLAKE [id number] [place] [address] [place] RBC (Bld) [#/Vol] 4.01 10*6/uL Normal 3.90-5.20 [facility] Comment on above: Order Comment: Speci men Type: BLOOD SPECIMENOrdering Facility: [facility] Address: [address] [place] [address] Performed By: #### 5 7021-8 ####[facility] FLORIDANCLIA [id number] [place] [address] [place] WBC (Bld) [#/Vol] 2.50 10*3/uL Low 3.70-11.00 [facility] Comment on above: Order Comment: Speci men Type: BLOOD SPECIMENOrdering Facility: [facility] Address: [address] [place] [address] Performed By: #### 5 7021-8 ####[facility] FLORIDANCLIA [id number] [place] [address] [place] CNPNon 10-19-2024 CNPN Normal [facility] Comprehensive metabolic 2000 panelon 10-19-2024 Albumin [Mass/Vol] 3.7 g/dL Low 3.9-4.9 [facility] Comment on above: Order Comment: Speci men Type: BLOOD SPECIMENOrdering Facility: [facility] Address: [address] [place] [address] Performed By: #### 2 4323-8 ####[facility] FLORIDANCA [id number] [place] [address] [place] ALP [Catalytic activity/Vol] 83 U/L Normal 34-123 [facility] Comment on above: Order Comment: Speci men Type: BLOOD SPECIMENOrdering Facility: [facility] Address: [address] [place] [address] Performed By: #### 2 4323-8 ####[facility] CENTERLIA [id number] [place] [address] [place] ALT [Catalytic activity/Vol] 13 U/L Normal 7-38 [facility] Comment on above: Order Comment: Speci men Type: BLOOD SPECIMENOrdering Facility: [facility] Address: [address] [place] [address] Performed By: #### 2 4323-8 ####[facility] FLORIDANCLIA [id number] [place] [address] [place] Anion gap [Moles/Vol] 12 mmol/L Normal 8-15 [facility] Comment on above: Order Comment: Speci men Type: BLOOD SPECIMENOrdering Facility: [facility] Address: [address] [place] [address] Performed By: #### 2 4323-8 ####[facility] ALYSSAJAZMYN [id number] [place] [address] [place] AST [Catalytic activity/Vol] 18 U/L Normal 13-35 [facility] Comment on above: Order Comment: Speci men Type: BLOOD SPECIMENOrdering Facility: [facility] Address: [address] [place] [address] Performed By: #### 2 4323-8 ####[facility] FLORIDANCBLAKE [id number] [place] [address] [place] Bilirubin [Mass/Vol] 0.2 mg/dL Normal 0.2-1.3 [facility] Comment on above: Order Comment: Speci men Type: BLOOD SPECIMENOrdering Facility: [facility] Address: [address] [place] [address] Performed By: #### 2 4323-8 ####[facility] FLORIDANCLIA [id number] [place] [address] [place] Calcium [Mass/Vol] 9.2 mg/dL Normal 8.5-10.2 [facility] Comment on above: Order Comment: Speci men Type: BLOOD SPECIMENOrdering Facility: [facility] Address: [address] [place] [address] Performed By: #### 2 4323-8 ####[facility] FLORIDANCLIA [id number] [place] [address] [place] Chloride [Moles/Vol] 101 mmol/L Normal 98-107 [facility] Comment on above: Order Comment: Speci men Type: BLOOD SPECIMENOrdering Facility: [facility] Address: [address] [place] [address] Performed By: #### 2 4323-8 ####[facility] SHALONDAWNCLIA [id number] [place] [address] [place] CO2 [Moles/Vol] 23 mmol/L Normal 22-30 [facility] Comment on above: Order Comment: Speci men Type: BLOOD SPECIMENOrdering Facility: [facility] Address: [address] [place] [address] Performed By: #### 2 4323-8 ####[facility] CENTERLIA [id number] [place] [address] [place] Creatinine [Mass/Vol] 0.64 mg/dL Normal 0.58-0.96 [facility] Comment on above: Order Comment: Speci men Type: BLOOD SPECIMENOrdering Facility: [facility] Address: [address] [place] [address] Performed By: #### 2 4323-8 ####[facility]ITALA [id number] [place] [address] [place] Creatinine and Glomerular filtration rate.predicted panel (S/P/Bld) 98 mL/min/1.73m??? Normal >=60 [facility] Comment on above: Order Comment: Speci men Type: BLOOD SPECIMENOrdering Facility: [facility] Address: [address] [place] [address] Result Comment: Sonia mated Glomerular Filtration Rate [...] actual GFR. Performed By: #### 2 4323-8 ####[facility] FLORIDANCLIA [id number] [place] [address] [place] Glucose [Mass/Vol] 103 mg/dL High 74-99 [facility] Comment on above: Order Comment: Speci men Type: BLOOD SPECIMENOrdering Facility: [facility] Address: [address] [place], [place] [address] Result Comment: The [place] [employer] (ADA) provides guidance for cutoff [...] Standards of Medical Care in Diabetes 2016, [place] [employer]. Diabetes Care. 2016.39(Suppl 1). Performed By: #### 2 4323-8 ####[facility] [id number] [place] [address] [place] Potassium [Moles/Vol] 3.2 mmol/L Low 3.7-5.1 [facility] Comment on above: Order Comment: Speci men Type: BLOOD SPECIMENOrdering Facility: [facility] Address: [address] [place] [address] Performed By: #### 2 4323-8 ####[facility] [id number] [place] [address] [place] Protein [Mass/Vol] 6.6 g/dL Normal 6.3-8.0 [facility] Comment on above: Order Comment: Speci men Type: BLOOD SPECIMENOrdering Facility: [facility] Address: [address] [place], [place] [address] Performed By: #### 2 4323-8 ####[facility] [id number] [place] [address] [place] Sodium [Moles/Vol] 136 mmol/L Normal 136-144 [facility] Comment on above: Order Comment: Speci men Type: BLOOD SPECIMENOrdering Facility: [facility] Address: [address] [place] [id number] Performed By: #### 2 4323-8 ####[facility] ALYSSAALBANYNICOLE [id number] [address] OF [facility] Urea nitrogen [Mass/Vol] 9 mg/dL Normal 7-21 [facility] Comment on above: Order Comment: Speci men Type: BLOOD SPECIMENOrdering Facility: [facility] Address: [address] [place] [address] Performed By: #### 2 4323-8 ####[facility] [id number] [address] [place] Venous Duplex US, Unilateral on 10-19-2024 Venous Duplex US, Unilateral [facility] [address] [place] [address] Venous Duplex US, Unilateral 10/19/24 1404 MR#: [id number] Acct: [id number] Name: MARIMAR WANG Rep #: [id number] : 1960 64 From: Lincoln Richards MD Attending Dr: Dr. Josh Bennett, Status: REG CL I Ordering Dr: Josh Bennett DO Date: 10/19/24 Location: [facility] Sex: F C Admitted: Reason For Study [...] ??? 10/19/241755 Date Lincoln Richards MD CC: GEOLOGY ASSOCIATE-C Julio Arriaga; Dr. Josh Bennett DO Date Dictated: 10/19/241403 Date Transcribed: 10/19/241755 Melt Supervisor: Signed Normal [facility] Venous duplex ultrasound rep ortOrdered By: Lincoln Richards on 10-19-2024 US Vein [facility] [address] [place] [address] Venous Duplex US, Unilateral 10/19/241403 MR#: [id number] Acct: [id number] Name: MARIMAR WANG Rep #:[id number] : 1960 64 From: Lincoln Roberson [...] 10/19/241755 Date _ Lincoln Richards MD CC: GEOLOGY ASSOCIATE-C Julio Arriaga; Dr. Josh Bennett, ~ Date Dictated: 10/19/24 1404 Date Transcribed: 10/19/241755 Melt Supervisor: Signed [facility] Work Phone: CNPNon 10-16-2024 CNPN Normal [facility] CNOVon 10-13-2024 CNOV Normal [facility] CBC W Auto Differential pane l (Bld)on 10-12-2024 Basophils (Bld) [#/Vol] 0.05 10*3/uL [facility] Basophils/100 WBC (Bld) 1.4 % C [facility] Differential cell count method Nom (Bld) Auto [facility] Eosinophils (Bld) [#/Vol] 0.04 10*3/uL [facility] Eosinophils/100 WBC (Bld) 1.1 % [facility] Erythrocyte distribution width (RBC) [Ratio] 15.6 % High 11.5 - 15.0 % [facility] Hematocrit (Bld) [Volume fraction] 33.8 % Low 36.0 - 46.0 % [facility] Hemoglobin (Bld) [Mass/Vol] 10.4 g/dL Low 11.5 - 15.5 g/dL [facility] Immature granulocytes (Bld) [#/Vol] [facility] Immature granulocytes/100 WBC (Bld) 0.6 % [facility] Interpretation and review of laboratory results Abnormal [facility] Lymphocytes (Bld) [#/Vol] 0.48 10*3/uL Low [facility] Lymphocytes/100 WBC (Bld) 13.7 % [facility] MCH (RBC) [Entitic mass] 25.9 pg Low 26.0 - 34.0 pg [facility] MCHC (RBC) [Mass/Vol] 30.8 g/dL 30.5 - 36.0 g/dL [facility] MCV (RBC) [Entitic vol] 84.1 fL 80.0 - 100.0 fL [facility] Monocytes (Bld) [#/Vol] 0.07 10*3/uL [facility] Monocytes/100 WBC (Bld) 2 % [facility] Neutrophils (Bld) [#/Vol] 2.85 10*3/uL [facility] Neutrophils/100 WBC (Bld) 81.2 % [facility] Nucleated RBC (Bld) [#/Vol] [facility] Nucleated RBC/100 WBC (Bld) [Ratio] 0 % /100 WBC [facility] Platelet mean volume (Bld) [Entitic vol] 9.9 fL 9.0 - 12.7 fL [facility] Platelets (Bld) [#/Vol] 166 10*3/uL [facility] RBC (Bld) [#/Vol] 4.02 10*6/uL 3.90 - 5.2 0 m/uL [facility] WBC (Bld) [#/Vol] 3.51 10*3/uL Low [facility] Basophils (Bld) [#/Vol] 0.05 10*3/uL Normal <0.11 [facility] Comment on above: Order Comment: Speci men Type: BLOOD SPECIMENOrdering Facility: [facility] Address: [address] [place], [place] [address] Performed By: #### 5 7021-8 ####[facility] MILLWNCLIA [id number] [place] [address] [place] Basophils/100 WBC (Bld) 1.4 % Normal [facility] Comment on above: Order Comment: Speci men Type: BLOOD SPECIMENOrdering Facility: [facility] Address: [address] [place] [address] Performed By: #### 5 7021-8 ####[facility] CENTERLIA [id number] [place] [address] [place] Differential cell count method Nom (Bld) Auto Normal [facility] Comment on above: Order Comment: Speci men Type: BLOOD SPECIMENOrdering Facility: [facility] Address: [address] [place] [address] Performed By: #### 5 7021-8 ####[facility] CENTERLIA [id number] [place] [address] [place] Eosinophils (Bld) [#/Vol] 0.04 10*3/uL Normal <0.46 [facility] Comment on above: Order Comment: Speci men Type: BLOOD SPECIMENOrdering Facility: [facility] Address: [address] [place] [address] Performed By: #### 5 7021-8 ####[facility] CENTERLIA [id number] [place] [address] [place] Eosinophils/100 WBC (Bld) 1.1 % Normal [facility] Comment on above: Order Comment: Speci men Type: BLOOD SPECIMENOrdering Facility: [facility] Address: [address] [place] [address] Performed By: #### 5 7021-8 ####[facility] FLORIDANCLIA [id number] [place] [address] [place] Erythrocyte distribution width (RBC) [Ratio] 15.6 % High 11.5-15.0 [facility] Comment on above: Order Comment: Speci men Type: BLOOD SPECIMENOrdering Facility: [facility] Address: [address] [place] [address] Performed By: #### 5 7021-8 ####[facility] [id number] [place] [address] [place] Hematocrit (Bld) [Volume fraction] 33.8 % Low 36.0-46.0 [facility] Comment on above: Order Comment: Speci men Type: BLOOD SPECIMENOrdering Facility: [facility] Address: [address] [place] [address] Performed By: #### 5 7021-8 ####[facility] [id number] [place] [address] [place] Hemoglobin (Bld) [Mass/Vol] 10.4 g/dL Low 11.5-15.5 [facility] Comment on above: Order Comment: Speci men Type: BLOOD SPECIMENOrdering Facility: [facility] Address: [address] [place] [address] Performed By: #### 5 7021-8 ####[facility] [id number] [place] [address] [place] Immature granulocytes (Bld) [#/Vol] 10*3/uL Normal <0.10 [facility] Comment on above: Order Comment: Speci men Type: BLOOD SPECIMENOrdering Facility: [facility] Address: [address] [place] [address] Performed By: #### 5 7021-8 ####[facility] [id number] [place] [address] [place] Immature granulocytes/100 WBC (Bld) 0.6 % Normal [facility] Comment on above: Order Comment: Speci men Type: BLOOD SPECIMENOrdering Facility: [facility] Address: [address] [place] [address] Performed By: #### 5 7021-8 ####[facility] FLORIDANICOLE [id number] [place] [address] [place] Lymphocytes (Bld) [#/Vol] 0.48 10*3/uL Low 1.00-4.00 [facility] Comment on above: Order Comment: Speci men Type: BLOOD SPECIMENOrdering Facility: [facility] Address: [address] [place] [address] Performed By: #### 5 7021-8 ####[facility] [id number] [place] [address] [place] Lymphocytes/100 WBC (Bld) 13.7 % Normal [facility] Comment on above: Order Comment: Speci men Type: BLOOD SPECIMENOrdering Facility: [facility] Address: [address] [place] [address] Performed By: #### 5 7021-8 ####[facility] [id number] [place] [address] [place] MCH (RBC) [Entitic mass] 25.9 pg Low 26.0-34.0 [facility] Comment on above: Order Comment: Speci men Type: BLOOD SPECIMENOrdering Facility: [facility] Address: [address] [place] [address] Performed By: #### 5 7021-8 ####[facility] FLORIDANCLIA [id number] [place] [address] [place] MCHC (RBC) [Mass/Vol] 30.8 g/dL Normal 30.5-36.0 [facility] Comment on above: Order Comment: Speci men Type: BLOOD SPECIMENOrdering Facility: [facility] Address: [address] [place] [address] Performed By: #### 5 7021-8 ####[facility] MILLWNCLIA [id number] [place] [address] [place] MCV (RBC) [Entitic vol] 84.1 fL Normal 80.0-100.[address] [facility] Comment on above: Order Comment: Speci men Type: BLOOD SPECIMENOrdering Facility: [facility] Address: [address] [place] [address] Performed By: #### 5 7021-8 ####[facility]OS[facility]ITALWNCLIA [id number] [place] [address] [place] Monocytes (Bld) [#/Vol] 0.07 10*3/uL Normal <0.87 [facility] Comment on above: Order Comment: Speci men Type: BLOOD SPECIMENOrdering Facility: [facility] Address: [address] [place] [address] Performed By: #### 5 7021-8 ####[facility] CENTERLIA [id number] [place] [address] [place] Monocytes/100 WBC (Bld) 2.0 % Normal [facility] Comment on above: Order Comment: Speci men Type: BLOOD SPECIMENOrdering Facility: [facility] Address: [address] [place] [address] Performed By: #### 5 7021-8 ####[facility] HOSPITALWNCLIA [id number] [place] [address] [place] Neutrophils (Bld) [#/Vol] 2.85 10*3/uL Normal 1.45-7.50 [facility] Comment on above: Order Comment: Speci men Type: BLOOD SPECIMENOrdering Facility: [facility] Address: [address] [place] [address] Performed By: #### 5 7021-8 ####[facility] FLORIDANCLIA [id number] [place] [address] [place] Neutrophils/100 WBC (Bld) 81.2 % Normal [facility] Comment on above: Order Comment: Speci men Type: BLOOD SPECIMENOrdering Facility: [facility] Address: [address] [place] [address] Performed By: #### 5 7021-8 ####[facility] [id number] [place] [address] [place] Nucleated RBC (Bld) [#/Vol] 10*3/uL Normal <0.01 [facility] Comment on above: Order Comment: Speci men Type: BLOOD SPECIMENOrdering Facility: [facility] Address: [address] [place] [address] Performed By: #### 5 7021-8 ####[facility] [id number] [place] [address] [place] Nucleated RBC/100 WBC (Bld) [Ratio] 0.0 /100 WBC Normal [facility] Comment on above: Order Comment: Speci men Type: BLOOD SPECIMENOrdering Facility: [facility] Address: [address] [place] [address] Performed By: #### 5 7021-8 ####[facility] [id number] [place] [address] [place] Platelet mean volume (Bld) [Entitic vol] 9.9 fL Normal 9.0-12.7 [facility] Comment on above: Order Comment: Speci men Type: BLOOD SPECIMENOrdering Facility: [facility] Address: [address] [place], [place] [address] Performed By: #### 5 7021-8 ####[facility] [id number] [place] [address] [place] Platelets (Bld) [#/Vol] 166 10*3/uL Normal 150-400 [facility] Comment on above: Order Comment: Speci men Type: BLOOD SPECIMENOrdering Facility: [facility] Address: [address] [place] [address] Performed By: #### 5 7021-8 ####[facility] ALYSSAALBANYHAMLETA [id number] [place] [address] [place] RBC (Bld) [#/Vol] 4.02 10*6/uL Normal 3.90-5.20 [facility] Comment on above: Order Comment: Speci men Type: BLOOD SPECIMENOrdering Facility: [facility] Address: [address] [place] [address] Performed By: #### 5 7021-8 ####[facility] ALYSSAALBANYNCLIA [id number] [place] [address] [place] WBC (Bld) [#/Vol] 3.51 10*3/uL Low 3.70-11.00 [facility] Comment on above: Order Comment: Speci men Type: BLOOD SPECIMENOrdering Facility: [facility] Address: [address] [place] [address] Performed By: #### 5 7021-8 ####[facility] MEDICAL CENTERTIFFANIA [id number] [place] [address] [place] CNPNon 10-12-2024 CNPN Normal [facility] CNPNon 10-08-2024 CNPN Normal [facility] CNOVon 10-06-2024 CNOV Normal [facility] CNPNon 10-06-2024 CNPN Normal [facility] CBC W Auto Differential pane l (Bld)on 10-05-2024 Basophils (Bld) [#/Vol] 0.08 10*3/uL [facility] Basophils/100 WBC (Bld) 1.2 % [facility] Differential cell count method Nom (Bld) Auto [facility] Eosinophils (Bld) [#/Vol] 0.18 10*3/uL [facility] Eosinophils/100 WBC (Bld) 2.6 % [facility] Erythrocyte distribution width (RBC) [Ratio] 16.5 % High 11.5 - 15.0 % [facility] Hematocrit (Bld) [Volume fraction] 36.2 % 36.0 - 46.0 % [facility] Hemoglobin (Bld) [Mass/Vol] 11.1 g/dL Low 11.5 - 15.5 g/dL [facility] Immature granulocytes (Bld) [#/Vol] 0.03 10*3/uL [facility] Immature granulocytes/100 WBC (Bld) 0.4 % [facility] Interpretation and review of laboratory results Abnormal [facility] Lymphocytes (Bld) [#/Vol] 1.27 10*3/uL [facility] Lymphocytes/100 WBC (Bld) 18.4 % [facility] MCH (RBC) [Entitic mass] 25.6 pg Low 26.0 - 34.0 pg [facility] MCHC (RBC) [Mass/Vol] 30.7 g/dL 30.5 - 36.0 g/dL [facility] MCV (RBC) [Entitic vol] 83.6 fL 80.0 - 100.0 fL [facility] Monocytes (Bld) [#/Vol] 0.5 10*3/uL [facility] Monocytes/100 WBC (Bld) 7.2 % [facility] Neutrophils (Bld) [#/Vol] 4.84 10*3/uL [facility] Neutrophils/100 WBC (Bld) 70.2 % [facility] Nucleated RBC (Bld) [#/Vol] [facility] Nucleated RBC/100 WBC (Bld) [Ratio] 0 % /100 WBC [facility] Platelet mean volume (Bld) [Entitic vol] 10.6 fL 9.0 - 12.7 fL [facility] Platelets (Bld) [#/Vol] 240 10*3/uL [facility] RBC (Bld) [#/Vol] 4.33 10*6/uL 3.90 - 5.2 0 m/uL [facility] WBC (Bld) [#/Vol] 6.9 10*3/uL [facility] Basophils (Bld) [#/Vol] 0.08 10*3/uL Normal <0.11 [facility] Comment on above: Order Comment: Speci men Type: BLOOD SPECIMENOrdering Facility: [facility] Address: [address] [place] [address] Performed By: #### 5 7021-8 ####[facility] FLORIDAZEVLIA [id number] [place] [address] [place] Basophils/100 WBC (Bld) 1.2 % Normal [facility] Comment on above: Order Comment: Speci men Type: BLOOD SPECIMENOrdering Facility: [facility] Address: [address] [place] [address] Performed By: #### 5 7021-8 ####[facility] CENTERLIA [id number] [place] [address] [place] Differential cell count method Nom (Bld) Auto Normal [facility] Comment on above: Order Comment: Speci men Type: BLOOD SPECIMENOrdering Facility: [facility] Address: [address] [place] [address] Performed By: #### 5 7021-8 ####[facility]ITALA [id number] [place] [address] [place] Eosinophils (Bld) [#/Vol] 0.18 10*3/uL Normal <0.46 [facility] Comment on above: Order Comment: Speci men Type: BLOOD SPECIMENOrdering Facility: [facility] Address: [address] [place] [address] Performed By: #### 5 7021-8 ####[facility] CENTERLIA [id number] [place] [address] [place] Eosinophils/100 WBC (Bld) 2.6 % Normal [facility] Comment on above: Order Comment: Speci men Type: BLOOD SPECIMENOrdering Facility: [facility] Address: [address] [place] [address] Performed By: #### 5 7021-8 ####[facility] FLORIDANCLIA [id number] [place] [address] [place] Erythrocyte distribution width (RBC) [Ratio] 16.5 % High 11.5-15.0 [facility] Comment on above: Order Comment: Speci men Type: BLOOD SPECIMENOrdering Facility: [facility] Address: [address] [place] [address] Performed By: #### 5 7021-8 ####[facility] FLORIDANCTIFFANIA [id number] [place] [address] [place] Hematocrit (Bld) [Volume fraction] 36.2 % Normal 36.0-46.0 [facility] Comment on above: Order Comment: Speci men Type: BLOOD SPECIMENOrdering Facility: [facility] Address: [address] [place] [address] Performed By: #### 5 7021-8 ####[facility]IDANCDEL[facility] [id number] [place] [address] [place] Hemoglobin (Bld) [Mass/Vol] 11.1 g/dL Low 11.5-15.5 [facility] Comment on above: Order Comment: Speci men Type: BLOOD SPECIMENOrdering Facility: [facility] Address: [address] [place] [address] Performed By: #### 5 7021-8 ####[facility] FLORIDANCLIA [id number] [place] [address] [place] Immature granulocytes (Bld) [#/Vol] 0.03 10*3/uL Normal <0.10 [facility] Comment on above: Order Comment: Speci men Type: BLOOD SPECIMENOrdering Facility: [facility] Address: [address] [place] [address] Performed By: #### 5 7021-8 ####[facility] FLORIDANCLIA [id number] [place] [address] [place] Immature granulocytes/100 WBC (Bld) 0.4 % Normal [facility] Comment on above: Order Comment: Speci men Type: BLOOD SPECIMENOrdering Facility: [facility] Address: [address] [place] [address] Performed By: #### 5 7021-8 ####[facility] ALYSSAJamirNCBLAKE [id number] [place] [address] [place] Lymphocytes (Bld) [#/Vol] 1.27 10*3/uL Normal 1.00-4.00 [facility] Comment on above: Order Comment: Speci men Type: BLOOD SPECIMENOrdering Facility: [facility] Address: [address] [place] [address] Performed By: #### 5 7021-8 ####[facility] [id number] [place] [address] [place] Lymphocytes/100 WBC (Bld) 18.4 % Normal [facility] Comment on above: Order Comment: Speci men Type: BLOOD SPECIMENOrdering Facility: [facility] Address: [address] [place] [address] Performed By: #### 5 7021-8 ####[facility] FLORIDANCLI [id number] [place] [address] [place] MCH (RBC) [Entitic mass] 25.6 pg Low 26.0-34.0 [facility] Comment on above: Order Comment: Speci men Type: BLOOD SPECIMENOrdering Facility: [facility] Address: [address] [place] [address] Performed By: #### 5 7021-8 ####[facility] FLORIDANCLIA [id number] [place] [address] [place] MCHC (RBC) [Mass/Vol] 30.7 g/dL Normal 30.5-36.0 [facility] Comment on above: Order Comment: Speci men Type: BLOOD SPECIMENOrdering Facility: [facility] Address: [address] [place] [address] Performed By: #### 5 7021-8 ####[facility] ALYSSAWNCLIA [id number] [place] [address] [place] MCV (RBC) [Entitic vol] 83.6 fL Normal 80.0-100.[address] [facility] Comment on above: Order Comment: Speci men Type: BLOOD SPECIMENOrdering Facility: [facility] Address: [address] [place] [address] Performed By: #### 5 7021-8 ####[facility] CENTERLIA [id number] [place] [address] [place] Monocytes (Bld) [#/Vol] 0.50 10*3/uL Normal <0.87 [facility] Comment on above: Order Comment: Speci men Type: BLOOD SPECIMENOrdering Facility: [facility] Address: [address] [place] [address] Performed By: #### 5 7021-8 ####[facility]OSPITALA [id number] [place] [address] [place] Monocytes/100 WBC (Bld) 7.2 % Normal [facility] Comment on above: Order Comment: Speci men Type: BLOOD SPECIMENOrdering Facility: [facility] Address: [address] [place] [address] Performed By: #### 5 7021-8 ####[facility] CENTERLIA [id number] [place] [address] [place] Neutrophils (Bld) [#/Vol] 4.84 10*3/uL Normal 1.45-7.50 [facility] Comment on above: Order Comment: Speci men Type: BLOOD SPECIMENOrdering Facility: [facility] Address: [address] [place] [address] Performed By: #### 5 7021-8 ####[facility] FLORIDANCLIA [id number] [place] [address] [place] Neutrophils/100 WBC (Bld) 70.2 % Normal [facility] Comment on above: Order Comment: Speci men Type: BLOOD SPECIMENOrdering Facility: [facility] Address: [address] [place] [address] Performed By: #### 5 7021-8 ####[facility] [id number] [place] [address] [place] Nucleated RBC (Bld) [#/Vol] 10*3/uL Normal <0.01 [facility] Comment on above: Order Comment: Speci men Type: BLOOD SPECIMENOrdering Facility: [facility] Address: [address] [place] [address] Performed By: #### 5 7021-8 ####[facility] [id number] [place] [address] [place] Nucleated RBC/100 WBC (Bld) [Ratio] 0.0 /100 WBC Normal [facility] Comment on above: Order Comment: Speci men Type: BLOOD SPECIMENOrdering Facility: [facility] Address: [address] [place] [address] Performed By: #### 5 7021-8 ####[facility] FLORIDANCLIA [id number] [place] [address] [place] Platelet mean volume (Bld) [Entitic vol] 10.6 fL Normal 9.0-12.7 [facility] Comment on above: Order Comment: Speci men Type: BLOOD SPECIMENOrdering Facility: [facility] Address: [address] [place] [address] Performed By: #### 5 7021-8 ####[facility] FLORIDANCLIA [id number] [place] [address] [place] Platelets (Bld) [#/Vol] 240 10*3/uL Normal 150-400 [facility] Comment on above: Order Comment: Speci men Type: BLOOD SPECIMENOrdering Facility: [facility] Address: [address] [place] [address] Performed By: #### 5 7021-8 ####[facility] RIGOBERTOSPRINGFIELD HOSPITALWNCLIA [id number] [place] [address] [place] RBC (Bld) [#/Vol] 4.33 10*6/uL Normal 3.90-5.20 [facility] Comment on above: Order Comment: Speci men Type: BLOOD SPECIMENOrdering Facility: [facility] Address: [address] [place] [address] Performed By: #### 5 7021-8 ####[facility] FLORIDANCLIA [id number] [place] [address] [place] WBC (Bld) [#/Vol] 6.90 10*3/uL Normal 3.70-11.00 [facility] Comment on above: Order Comment: Speci men Type: BLOOD SPECIMENOrdering Facility: [facility] Address: [address] [place] [address] Performed By: #### 5 7021-8 ####[facility] FLORIDANCLIA [id number] [place] [address] [place] Comprehensive metabolic 2000 panelOrdered By: Cyndie Zhou on 10-05-2024 Albumin [Mass/Vol] 3.7 g/dL Low 3.9 - 4.9 g/dL [facility] ALP [Catalytic activity/Vol] 83 U/L 34 - 123 U/L [facility] ALT [Catalytic activity/Vol] 8 U/L 7 - 38 U/L [facility] Anion gap [Moles/Vol] 9 mmol/L 8 - 15 mmol/L [facility] AST [Catalytic activity/Vol] 16 U/L 13 - 35 U/L [facility] Bilirubin [Mass/Vol] 0.2 mg/dL 0.2 - 1 .3 mg/dL [facility] Calcium [Mass/Vol] 9.1 mg/dL 8.5 - 10. 2 mg/dL [facility] Chloride [Moles/Vol] 100 mmol/L 98 - 10 7 mmol/L [facility] CO2 [Moles/Vol] 25 mmol/L 22 - 30 mmol/L [facility] Creatinine [Mass/Vol] 0.67 mg/dL 0.58 - 0.96 mg/dL [facility] GFR/1.73 sq M.predicted among non-blacks MDRD (S/P/Bld) [Vol rate/Area] 97 mL/min/{1.73_m2} - PINF [facility] Comment on above: Estimated Glomerular Filtration [...] 105 mg/dL High 74 - 99 mg/dL [facility] Comment on above: The [place] Diab[employer] s Association (ADA) provides guidance for [...] Standards of Medical Care in Diabetes 2016, [place] [employer]. Diabetes Care. 2016.39(Suppl 1). Interpretation and review of laboratory results Abnormal [facility] Potassium [Moles/Vol] 4.1 mmol/L 3.7 - 5.1 mmol/L [facility] Protein [Mass/Vol] 6.7 g/dL 6.3 - 8.0 g/dL [facility] Sodium [Moles/Vol] 134 mmol/L Low 136 - 144 mmol/L [facility] Urea nitrogen [Mass/Vol] 11 mg/dL 7 - 21 mg/dL [facility] Comprehensive metabolic 2000 panelon 10-05-2024 Albumin [Mass/Vol] 3.7 g/dL Low 3.9-4.9 [facility] Comment on above: Order Comment: Speci men Type: BLOOD SPECIMENOrdering Facility: [facility] Address: [address] [place] [address] Performed By: #### 2 4323-8 ####[facility] MILLWNCLIA [id number] [place] [address] [place] ALP [Catalytic activity/Vol] 83 U/L Normal 34-123 [facility] Comment on above: Order Comment: Speci men Type: BLOOD SPECIMENOrdering Facility: [facility] Address: [address] [place] [address] Performed By: #### 2 4323-8 ####[facility] CENTERLIA [id number] [place] [address] [place] ALT [Catalytic activity/Vol] 8 U/L Normal 7-38 [facility] Comment on above: Order Comment: Speci men Type: BLOOD SPECIMENOrdering Facility: [facility] Address: [address] [place] [address] Performed By: #### 2 4323-8 ####[facility] CENTERLIA [id number] [place] [address] [place] Anion gap [Moles/Vol] 9 mmol/L Normal 8-15 [facility] Comment on above: Order Comment: Speci men Type: BLOOD SPECIMENOrdering Facility: [facility] Address: [address] [place] [address] Performed By: #### 2 4323-8 ####[facility] CENTERLIA [id number] [place] [address] [place] AST [Catalytic activity/Vol] 16 U/L Normal 13-35 [facility] Comment on above: Order Comment: Speci men Type: BLOOD SPECIMENOrdering Facility: [facility] Address: [address] [place] [address] Performed By: #### 2 4323-8 ####[facility] MILLTOWNCLIA [id number] [place] [address] [place] Bilirubin [Mass/Vol] 0.2 mg/dL Normal 0.2-1.3 [facility] Comment on above: Order Comment: Speci men Type: BLOOD SPECIMENOrdering Facility: [facility] Address: [address] [place] [address] Performed By: #### 2 4323-8 ####[facility] MILLTOWNCLIA [id number] [place] [address] [place] Calcium [Mass/Vol] 9.1 mg/dL Normal 8.5-10.2 [facility] Comment on above: Order Comment: Speci men Type: BLOOD SPECIMENOrdering Facility: [facility] Address: [address] [place] [address] Performed By: #### 2 4323-8 ####[facility]OSPITALWNCLIA [id number] [place] [address] [place] Chloride [Moles/Vol] 100 mmol/L Normal 98-107 [facility] Comment on above: Order Comment: Speci men Type: BLOOD SPECIMENOrdering Facility: [facility] Address: [address] [place] [address] Performed By: #### 2 4323-8 ####[facility] MILLTOWNCLIA [id number] [place] [address] [place] CO2 [Moles/Vol] 25 mmol/L Normal 22-30 [facility] Comment on above: Order Comment: Speci men Type: BLOOD SPECIMENOrdering Facility: [facility] Address: [address] [place] [address] Performed By: #### 2 4323-8 ####[facility] MILLTOWNCLIA [id number] [place] [address] [place] Creatinine [Mass/Vol] 0.67 mg/dL Normal 0.58-0.96 [facility] Comment on above: Order Comment: Mindy mcfarlane Type: BLOOD SPECIMENOrdering Facility: [facility] Address: [address] [place] [address] Performed By: #### 2 4323-8 ####[facility] [id number] [place] [address] [place] [facility] Creatinine and Glomerular filtration rate.predicted panel (S/P/Bld) 97 mL/min/1.73m??? Normal >=60 [facility] Comment on above: Order Comment: Mindy mcfarlane Type: BLOOD SPECIMENOrdering Facility: [facility] Address: [address] [place] [address] Result Comment: Sonia mated Glomerular Filtration Rate [...] actual GFR. Performed By: #### 2 4323-8 ####[facility] [id number] [place] [address] [place] Glucose [Mass/Vol] 105 mg/dL High 74-99 [facility] Comment on above: Order Comment: Mindy mcfarlane Type: BLOOD SPECIMENOrdering Facility: [facility] Address: [address] [place] [address] Result Comment: The [place] Diabetes Association (ADA) provides guidance for cutoff [...] Standards of Medical Care in Diabetes 2016, [place] [employer]. Diabetes Care. 2016.39(Suppl 1). Performed By: #### 2 4323-8 ####[facility] [id number] [place] [address] [place] Potassium [Moles/Vol] 4.1 mmol/L Normal 3.7-5.1 [facility] Comment on above: Order Comment: Speci men Type: BLOOD SPECIMENOrdering Facility: [facility] Address: [address] [place] [address] Performed By: #### 2 4323-8 ####[facility] [id number] [place] [address] [place] Protein [Mass/Vol] 6.7 g/dL Normal 6.3-8.0 [facility] Comment on above: Order Comment: Speci men Type: BLOOD SPECIMENOrdering Facility: [facility] Address: [address] [place] [address] Performed By: #### 2 4323-8 ####[facility] [id number] [place] [address] [place] Sodium [Moles/Vol] 134 mmol/L Low 136-144 [facility] Comment on above: Order Comment: Speci men Type: BLOOD SPECIMENOrdering Facility: [facility] [facility] Address: [address] [place] [address] Performed By: #### 2 4323-8 ####[facility] [id number] [place] [address] [place] Urea nitrogen [Mass/Vol] 11 mg/dL Normal 7-21 [facility] Comment on above: Order Comment: Speci men Type: BLOOD SPECIMENOrdering Facility: [facility] Address: [address] [place] [address] Performed By: #### 2 4323-8 ####[facility] [id number] [place] [id number] [place] CNOVon 09-30-2024 CNOV Normal [facility] Culture, Blood (WB)on 2024 CUB Blood cultures x2, f rom two different sites No growth in 5 days. Normal [facility] Comment on above: Performed By: #### L 500.4050, L100.0100, M200.1000, L503.6005 ####[facility] [address] [place], [place], [id number] HIGH RISK HUMAN PAPILLOMA ART (HPV), PCR FOR DETECTION AND GENOTYPINGon 09-30-2024 HPV 16 Ag Ql (Unsp spec) Not detected Normal Not detected [facility] Comment on above: Order Comment: Speci men Type: FLUID SPECIMENOrdering Facility: [facility] Address: [address] [place] [address] Performed By: #### H PVHRT ####[facility] [id number] [place] [address] [place] HPV 18 Ag Ql (Unsp spec) Not detected Normal Not detected [facility] Comment on above: Order Comment: Speci men Type: FLUID SPECIMENOrdering Facility: [facility] Address: [address] [place] [address] Performed By: #### H PVHRT ####[facility] [id number] [place] [address] [place] HPV 31+33+35+39+45+51+52+56 +58+59+66+68 DNA CORAL+probe Ql (Cvx) Not detected Normal Not detected [facility] Comment on above: Order Comment: Speci men Type: FLUID SPECIMENOrdering Facility: [facility] Address: [address] [place] [address] Result Comment: High Risk HPV Other Type includes HPV types 31, 33, 35, 39, 45, 51, 52, 56, 58, 59, 66 and 68. Performed By: #### H PVHRT ####[facility] LABCLIA [id number] [address] [address] [place] MARIA TERESA SCREENING W TOMOon 09-30 MARIA TERESA SCREENING W CAMERON Normal [facility] PAP TESTon 09-30-2024 ADEQUACY Satisfactory for interpretation. Normal [facility] Comment on above: Order Comment: Speci men Type: FLUID SPECIMENOrdering Facility: [facility] Address: [address] [place] [address] Performed By: #### L [id number] ####[facility] [id number] [address] LABCLIA [id number] [place] [address] [place] CASE REPORT Normal [facility] Comment on above: Order Comment: Speci men Type: FLUID SPECIMENOrdering Facility: [facility] Address: [address] [place] [address] Result Comment: Gyne cologic Cytology Report Case: [id number] Provider: Juan José Cheema MD Collected: 09/30/2024 10:46 AMOrdering Location: OB/Gynecology Received: 09/30/2024 02:02 PMFirst Screen: Gmitro, Willie, CT, ASCPSpecimen: Pap Test, ThinPrep, Cervix Performed By: #### L [id number] ####[facility] [id number] [address] LABCLIA [id number] [place] [address] [place] CLINICAL HISTORY, CYTOLOGY, ATHLETE MANAGER Routine Exam Normal [facility] Comment on above: Order Comment: Speci men Type: FLUID SPECIMENOrdering Facility: [facility] Address: [address] [place] [address] Performed By: #### L [id number] ####[facility] [id number] [place] [address] [facility] LABCLIA [id number] [place] [id number] [place] [facility] CYTOLOGY PAP OTHER INTERPRETATION Atrophic specimen. Normal [facility] Comment on above: Order Comment: Speci men Type: FLUID SPECIMENOrdering Facility: [facility] Address: [address] [place] [address] Performed By: #### L [id number] ####[facility] [id number] [place] [id number] [facility] LABCLIA [id number] [address] FINAL PERFORMING LAB Normal [facility] Comment on above: Order Comment: Speci men Type: FLUID SPECIMENOrdering Facility: [facility] Address: [address] [place] [address] Result Comment: Tech nical component, preform plate maker screening performed at [facility], [address] [place] [address] CLIA# [id number] interpretation performed at [facility], [address] [place] [address] CLIA# [id number] Director: Joan Riley M.D. Performed By: #### L [id number] ####[facility] [id number] [place] [id number] [facility] LABCLIA [id number] [address] [address] [facility] [place] INTERPRETATION, CYTOLOGY, ATHLETE MANAGER Normal [facility] Comment on above: Order Comment: Speci men Type: FLUID SPECIMENOrdering Facility: [facility] Address: [address] [place] [address] Result Comment: Nega tive for intraepithelial lesion or malignancy. at 1545 EDT Performed By: #### L [id number] ####[facility]ORYCL[facility] [id number] [place] [address] [facility] LABCLIA [id number] [address] [place] [address] [place] LMP 01/22/2010 Normal [facility] Comment on above: Order Comment: Speci men Type: FLUID SPECIMENOrdering Facility: [facility] Address: [address] [place] [address] Performed By: #### L [id number] ####[facility]ORYCLIA [id number] [place] [address] [facility] LABCLIA [id number] [address] [place] [address] [place] PAP DISCLAIMER COMMENT The Pap Smear is a screening test for cervical cancer. False negative results occur with all screening tests, emphasizing the need for rescreening at recommended intervals, and clinical correlation. Normal [facility] Comment on above: Order Comment: Speci men Type: FLUID SPECIMENOrdering Facility: [facility] Address: [address] [place] [address] Performed By: #### L [id number] ####[facility]ATORYCL[facility] [id number] [place] [id number] [facility] LABCLIA [id number] [address] [place] [address] [place] PAP EXTERNAL GRINDER TENDER COMMENT Normal [facility] Comment on above: Order Comment: Speci men Type: FLUID SPECIMENOrdering Facility: [facility] Address: [address] [place], [place] [address] Performed By: #### L [id number] ####[facility]ATORYCLIA [id number] [place] [address] [facility] LABCLIA [id number] [facility] [address] [place] [address] [place] CNADon 09-29-2024 MARIMAR ROSADO ([id number]) 1960 F Date Time Provider Department 09/29/24 RAUL HENDRIX Normal [facility] CNPNon 09-28-2024 CNPN Telephone (MARINAHEUHWN ) -------- MARIMAR WANG ([id number]) 1960 F Date Time Provider Department 09/28/24 [...] 80 mg by mouth once daily. - dmfsqo-btktxgiv-tqerecf (CREON 36) 36,000-114,000- 180,000 unit delayed release [...] Comments as of 02/06/2017: Xeldebby use pharmacy [facility] Specialty pharmacy [place] [id number] Problem List As Of Date 09/28/2024 Noted [...] PVC's (premature (more content not included)... Normal [facility] Absolute lymphocyte countOrd ered By: Pawel Cason on 09-24-2024 Lymphocytes Auto (Unsp spec) [#/Vol] 1.59 10*3/uL 0.83-4.51 [facility] Absolute neutrophil countOrd ered By: Pwael Cason on 09-24-2024 Neutrophils (Bld) [#/Vol] 7.0 10*3/uL 2.0-7.7 [facility] Automated lymphocyte count a s percentage of total leukocytesOrdered By: Pawel Cason on 09-24-2024 Lymphocytes/100 WBC Auto (Unsp spec) 15.7 % Low 19-41 [facility] BUN/creatinine ratioOrdered By: Pawel Cason on 09-24-2024 Urea nitrogen/Creatinine [Mass ratio] 15.0 mg/mg 10-20 [facility] Basophil percentageOrdered B y: Pawel Cason on 09-24-2024 Basophils/100 WBC (Bld) 1.1 % High 0-1 [facility] Bilirubin, totalOrdered By: Pawelladonna Cason on 09-24-2024 Bilirubin [Mass/Vol] 0.18 mg/dL 0.00-1.30 [facility] Blood cultureOrdered By: [facility] on 09-24-2024 Bacteria identified Cx Nom (Bld) No growth in 5 days. [facility] Bacteria identified Cx Nom (Bld) No growth in 5 days. [facility] CBC W/Diff, Automatedon 08-30 Absolute Lymph 1.59 X10 3/uL Normal 0.83-4.51 [facility] Comment on above: Performed By: #### L 500.4050, L100.0100, M200.1000, L503.6005 #### [facility] [address] [place], [address] Absolute Neut 7.0 X10 3/uL Normal 2.0-7.7 [facility] Comment on above: Performed By: #### L 500.4050, L100.0100, M200.1000, L503.6005 #### [facility] [address] [place], [address] Basophils/100 WBC (Bld) 1.1 % High 0-1 [facility] Comment on above: Performed By: #### L 500.4050, L100.0100, M200.1000, L503.6005 #### [facility] [address] [place], [address] Eosinophils/100 WBC (Bld) 1.9 % Normal 0-5 [facility] Comment on above: Performed By: #### L 500.4050, L100.0100, M200.1000, L503.6005 #### [facility] [address] [place], [address] Erythrocyte distribution width (RBC) [Ratio] 16.3 % High 11.6-14.6 [facility] Comment on above: Performed By: #### L 500.4050, L100.0100, M200.1000, L503.6005 #### [facility] [address] [place], [address] Hematocrit (Bld) [Volume fraction] 34.4 % Low 37-47 [facility] Comment on above: Performed By: #### L 500.4050, L100.0100, M200.1000, L503.6005 #### [facility] [address] [place], [address] Hemoglobin (Bld) [Mass/Vol] 10.7 g/dL Low 12.0-15.0 [facility] Comment on above: Performed By: #### L 500.4050, L100.0100, M200.1000, L503.6005 #### [facility] [address] [place], [address] IG% 1.000 High 0.0-0.9 [facility] Comment on above: Result Comment: IG% - Immature Granulocytes (promyelocytes, myelocytes and metamyelocytes) > 1% indicates that a LEFT SHIFT is Present. Performed By: #### L 500.4050, L100.0100, M200.1000, L503.6005 #### [facility] [address] [place], [address] Lymphocytes/100 WBC (Bld) 15.7 % Low 19-41 [facility] Comment on above: Performed By: #### L 500.4050, L100.0100, M200.1000, L503.6005 #### [facility] [address] [place], [address] MCH (RBC) [Entitic mass] 25.8 pg Low 27.0-32.0 [facility] Comment on above: Performed By: #### L 500.4050, L100.0100, M200.1000, L503.6005 #### [facility] [address] [place], [address] MCHC (RBC) [Mass/Vol] 31.1 g/dL Low 32-36 [facility] Comment on above: Performed By: #### L 500.4050, L100.0100, M200.1000, L503.6005 #### [facility] [address] [place], [address] MCV (RBC) [Entitic vol] 83.1 fL Normal 81-99 [facility] Comment on above: Performed By: #### L 500.4050, L100.0100, M200.1000, L503.6005 #### [facility] [address] [place], [address] Monocytes/100 WBC (Bld) 11.2 % High 0-10 [facility] Comment on above: Performed By: #### L 500.4050, L100.0100, M200.1000, L503.6005 #### [facility] [address] [place], [address] Neutrophils/100 WBC (Bld) 69.1 % Normal 47-70 [facility] Comment on above: Performed By: #### L 500.4050, L100.0100, M200.1000, L503.6005 #### [facility] [address] [place], [address] Nucleated RBC (Bld) [#/Vol] 0 10*3/uL Normal 0-5 [facility] Comment on above: Performed By: #### L 500.4050, L100.0100, M200.1000, L503.6005 #### [facility] [address] [place], [address] Platelet mean volume (Bld) [Entitic vol] 11.3 fL Normal 6.2-12.0 [facility] Comment on above: Performed By: #### L 500.4050, L100.0100, M200.1000, L503.6005 #### [facility] [address] [place], [address] Platelets (Bld) [#/Vol] 258 10*3/uL Normal 150-450 [facility] Comment on above: Performed By: #### L 500.4050, L100.0100, M200.1000, L503.6005 #### [facility] [address] [place], [address] RBC (Bld) [#/Vol] 4.14 10*6/uL Low 4.2-5.4 [facility] Comment on above: Performed By: #### L 500.4050, L100.0100, M200.1000, L503.6005 #### [facility] [address] [place], [address] RDW SD 49.1 fl High 35.1-43.9 [facility] Comment on above: Performed By: #### L 500.4050, L100.0100, M200.1000, L503.6005 #### [facility] [address] [place], [address] WBC (Bld) [#/Vol] 10.1 10*3/uL Normal 4.4-11.0 [facility] Comment on above: Performed By: #### L 500.4050, L100.0100, M200.1000, L503.6005 #### [facility] [address] [place], [address] CNOVon 09-24-2024 CNOV Normal [facility] CNPNon 09-24-2024 CNPN Normal [facility] Carbon dioxide measurementOr dered By: Pawel Cason on 09-24-2024 CO2 [Moles/Vol] 23.1 mmol/L 22.0-29.0 [facility] Chloride measurementOrdered By: Pawel Cason on 09-24-2024 Chloride [Moles/Vol] 99 mmol/L 96-108 [facility] Comprehensive Metabolic Prof ilon 09-24-2024 Albumin [Mass/Vol] 3.5 g/dL Normal 3.4-4.8 [facility] Comment on above: Performed By: #### L 500.4050, L100.0100, M200.1000, L503.6005 #### [facility] [address] [place], [address] Albumin/Globulin [Mass ratio] 1.0 {ratio} Normal 0.9-2.4 [facility] Comment on above: Performed By: #### L 500.4050, L100.0100, M200.1000, L503.6005 #### [facility] [address] [place], [address] ALK PHOS 97 U/L Normal 35-104 [facility] Comment on above: Performed By: #### L 500.4050, L100.0100, M200.1000, L503.6005 #### [facility] [address] [place], [address] ALT [Catalytic activity/Vol] 10 U/L Normal <=34 [facility] Comment on above: Performed By: #### L 500.4050, L100.0100, M200.1000, L503.6005 #### [facility] [address] [place], [address] Anion gap [Moles/Vol] 11 mmol/L Normal 5-15 [facility] Comment on above: Performed By: #### L 500.4050, L100.0100, M200.1000, L503.6005 #### [facility] [address] [place], [address] AST [Catalytic activity/Vol] 20 U/L Normal <=31 [facility] Comment on above: Performed By: #### L 500.4050, L100.0100, M200.1000, L503.6005 #### [facility] [address] [place], [address] Bilirubin [Mass/Vol] 0.18 mg/dL Normal 0.00-1.30 [facility] Comment on above: Performed By: #### L 500.4050, L100.0100, M200.1000, L503.6005 #### [facility] [address] [place], [address] BUN/CRE 15.0 RATIO Normal 10-20 [facility] Comment on above: Performed By: #### L 500.4050, L100.0100, M200.1000, L503.6005 #### [facility] [address] [place], [address] Calcium [Mass/Vol] 8.7 mg/dL Normal 7.6-11.0 [facility] Comment on above: Performed By: #### L 500.4050, L100.0100, M200.1000, L503.6005 #### [facility] [address] [place], [address] Chloride [Moles/Vol] 99 mmol/L Normal 96-108 [facility] Comment on above: Performed By: #### L 500.4050, L100.0100, M200.1000, L503.6005 #### [facility] [address] [place], [address] CO2 [Moles/Vol] 23.1 mmol/L Normal 22.0-29.0 [facility] Comment on above: Performed By: #### L 500.4050, L100.0100, M200.1000, L503.6005 #### [facility] [address] [place], [address] Creatinine [Mass/Vol] 0.69 mg/dL Low 0.70-1.20 [facility] Comment on above: Performed By: #### L 500.4050, L100.0100, M200.1000, L503.6005 #### [facility] [address] [place], [address] ECRCL 72.55 ml/min Normal [facility] Comment on above: Performed By: #### L 500.4050, L100.0100, M200.1000, L503.6005 #### [facility] [address] [place], [address] GFR/1.73 sq M.predicted among non-blacks MDRD (S/P/Bld) [Vol rate/Area] 96 mL/min/{1.73_m2} Normal >60 [facility] Comment on above: Result Comment: mL/m in/1.73m2 CKD-EPI Creatinine Equation (2020) Performed By: #### L 500.4050, L100.0100, M200.1000, L503.6005 #### [facility] [address] [place], [address] Globulin (S) [Mass/Vol] 3.3 g/dL Normal 2.2-4.2 [facility] Comment on above: Performed By: #### L 500.4050, L100.0100, M200.1000, L503.6005 #### [facility] [address] [place], [address] Glucose [Mass/Vol] 78 mg/dL Normal 70-99 [facility] Comment on above: Performed By: #### L 500.4050, L100.0100, M200.1000, L503.6005 #### [facility] [address] [place], [address] Potassium [Moles/Vol] 3.9 mmol/L Normal 3.3-5.1 [facility] Comment on above: Performed By: #### L 500.4050, L100.0100, M200.1000, L503.6005 #### [facility] [address] [place], [address] Sodium [Moles/Vol] 133 mmol/L Normal 133-145 [facility] Comment on above: Performed By: #### L 500.4050, L100.0100, M200.1000, L503.6005 #### [facility] [address] [place], [address] T PROT 6.8 g/dL Normal 5.9-8.4 [facility] Comment on above: Performed By: #### L 500.4050, L100.0100, M200.1000, L503.6005 #### [facility] [address] [place], [address] Urea nitrogen [Mass/Vol] 10 mg/dL Normal 4-19 [facility] Comment on above: Performed By: #### L 500.4050, L100.0100, M200.1000, L503.6005 #### [facility] [address] [place], [address] Emergency Department Summary on 09-24-2024 Emergency Department Summary [facility] Medical Records Department [address] [place] [address] Emergency Department Summary 09/24/24 MR#: [id number] Acct: [id number] Name: MARIMAR WANG Rep #: [id number] : 1960 64 From: Pawel Cason MD [...] similar symptoms: Yes Recent Illness/Hospitalization: Yes PFSH [facility] Medical History Squamous cell cancer [...] QHS MENTAL HEALTH 6 09/01/24 History peg 558-mltudugzfmmy-kgubvzw n 1 1 drp OP 4X/DAY DRY [...] Constipation Unknown History gram/dose oral powder (Miralax) uypzve-nhjgzmkn-wlqegan See Rx Instructions PO .COMPLEX 09/01/24 Rx 36,000-114,000-180,000 unit #300 caps capsule,delay rel (Creon) acetaminophen 500 mg tablet 1,000 mg PO Q6H PRN fever or pain 11/15/23 09/01/24 History atorvastatin 80 mg tablet 80 mg PO QHS 11/15/23 09/01/24 His tory hydrocortisone 2. (more content not included)... Normal [facility] Eosinophil percentageOrdered By: Pawel Cason on 09-24-2024 Eosinophils/100 WBC (Bld) 1.9 % 0-5 [facility] Erythrocyte distribution wid th ratioOrdered By: Pawel Cason on 09-24-2024 Erythrocyte distribution width (RBC) [Ratio] 16.3 % High 11.6-14.6 [facility] Erythrocyte distribution wid th standard deviationOrdered By: Pawel Cason on 09-24-2024 Erythrocyte distribution width (RBC) [Entitic vol] 49.1 fL High 35.1-43.9 [facility] Erythrocyte distribution width (RBC) [Ratio] 49.1 fl High 35.1-43.9 [facility] Estimation of creatinine olga aranceOrdered By: Pawel Cason on 09-24-2024 Estimated Creatinine Clearance Calc 72.55 ml/min [facility] GFR/1.73 sq M.predicted brunilda g non-blacks MDRD (S/P/Bld) [Vol rate/Area]Ordered By: Pawel Cason on 09-24-2024 Estimated GFR (MDRD) Non-Af Amer 96 >60 [facility] Comment on above: mL/min/1.73m2 CKD-EP I Creatinine Equation (2020) Glomerular filtration rate ( GFR) estimation/1.73 sq m using serum, plasma, or whole bOrdered By: Pawel Cason on 09-24-2024 GFR/1.73 sq M.predicted among non-blacks MDRD (S/P/Bld) [Vol rate/Area] 96 mL/min/{1.73_m2} >60 [facility] Comment on above: mL/min/1.73m2 CKD-EP I Creatinine Equation (2020) Hematocrit Auto (Bld) [Volum e fraction]Ordered By: Pawel Cason on 09-24-2024 Hematocrit (Bld) [Volume fraction] 34.4 % Low 37-47 [facility] Hemoglobin measurementOrdere d By: Pawel Cason on 09-24-2024 Hemoglobin (Bld) [Mass/Vol] 10.7 g/dL Low 12.0-15.0 [facility] Immature granulocytes/100 WB C Auto (Bld)Ordered By: Pawelladonna Cason on 09-24-2024 Immature granulocytes/100 WBC (Bld) 1.000 % High 0.0-0.9 [facility] Comment on above: IG% - Immature Granu locytes (promyelocytes, myelocytes and metamyelocytes) > 1% indicates that a LEFT SHIFT is Present. Laboratory - Chemistry and C hemistry - challengeOrdered By: Pawelladonna Cason on 09-24-2024 AST [Catalytic activity/Vol] 20 U/L <32 [facility] Lactic acid measurementOrder ed By: Pawel Cason on 09-24-2024 Lactate [Moles/Vol] mmol/L Normal 0.0-2.0 [facility] Comment on above: Order Comment: Y Performed By: #### L 500.4050, L100.0100, M200.1000, L503.6005 #### [facility] [address] [place], [address] Lymphocytes Auto (Unsp spec) [#/Vol]Or[facility] Lymphocytes (Bld) [#/Vol] 1.59 10*3/uL 0.83-4.51 [facility] Lymphocytes/100 WBC Auto (Un sp spec)Ordered By: Pawelladonna Cason on 09-24-2024 Lymphocytes/100 WBC (Bld) 15.7 % Low 19-41 [facility] MCV (mean corpuscular volume ) determinationOrdered By: Pawelladonna Cason on 09-24-2024 MCV (RBC) [Entitic vol] 83.1 fL 81-99 [facility] Mean corpuscular hemoglobin (MCH) determinationOrdered By: Pawel Cason on 09-24-2024 MCH (RBC) [Entitic mass] 25.8 pg Low 27.0-32.0 [facility] Mean corpuscular hemoglobin concentration (MCHC) determinationOrdered By: Pawel Cason on 09-24-2024 MCHC (RBC) [Mass/Vol] 31.1 g/dL Low 32-36 [facility] Mean platelet volume determi nationOrdered By: Pawelladonna Cason on 09-24-2024 Platelet mean volume (Bld) [Entitic vol] 11.3 fL 6.2-12.0 [facility] Monocyte percentageOrdered B y: Pawel Cason on 09-24-2024 Monocytes/100 WBC (Bld) 11.2 % High 0-10 [facility] Neutrophil percentageOrdered By: Pawelladonna Greeno on 09-24-2024 Neutrophils/100 WBC (Bld) 69.1 % 47-70 [facility] Nucleated red blood cell per centageOrdered By: Pawelladonna Cason on 09-24-2024 Nucleated RBC/100 WBC (Bld) [Ratio] 0 % 0-5 [facility] Pelvis WITH IV Contraston Pelvis WITH IV Contrast [facility] Imaging Services [address] [place], [place] [address] Pelvis WITH IV Contrast MR#: [id number] Acct: [id number] Name: MARIMAR WANG Rep #: [id number] : 1960 F 64 From: Jaiden Mariee MD PCP: Julio Arriaga, REGINA-C Status: REG ER Study: Pelvis WITH IV Contrast Date of Exam: 09/24/24 Exam# [id number] Ordering Dr: Pawel Cason MD PROCEDURE: PELVIS WITH IV CONTRAST REASON FOR EXAM: Perirectal pain, fullness, concern for recurrent abscess COMPARISON: September 02, 2024 TECHNIQUE: CT of the pelvis with contrast with coronal and sagittal reformatted images CONTRAST: 96 cc Isovue 370 FINDINGS: [place] artifact from left hip replacement. Right posterior [...] use of iterative reconstruction technique). Reading Location: [facility] CC: SINAI Arriaga; Dr. Pawel Cason MD Melt Supervisor: Signed Normal [facility] Platelet countOrdered By: Akiko Cason on 09-24-2024 Platelets (Bld) [#/Vol] 258 10*3/uL 150-450 [facility] RBC Auto (Bld) [#/Vol]Ordere d By: Pawel Cason on 09-24-2024 RBC (Bld) [#/Vol] 4.14 10*6/uL Low 4.2-5.4 [facility] Serum creatinine measurement (mass/volume)Ordered By: Pawel Cason on 09-24-2024 Creatinine [Mass/Vol] 0.69 mg/dL Low 0.70-1.20 [facility] Serum globulin measurementOr dered By: Pawel Cason on 09-24-2024 Globulin (S) [Mass/Vol] 3.3 g/dL 2.2-4.2 [facility] Serum glucose measurement (m ass/volume)Ordered By: Pawel Cason on 09-24-2024 Glucose [Mass/Vol] 78 mg/dL 70-99 [facility] Serum or plasma alanine alarcon otransferase (ALT) measurementOrdered By: Pawel Cason on 09-24-2024 ALT [Catalytic activity/Vol] 10 U/L <35 [facility] Serum or plasma albumin alexis urement (mass/volume)Ordered By: Pawel Cason on 09-24-2024 Albumin [Mass/Vol] 3.5 g/dL 3.4-4.8 [facility] Serum or plasma albumin/glob ulin mass ratioOrdered By: Pawelladonna Cason on 09-24-2024 Albumin/Globulin [Mass ratio] 1.0 {ratio} 0.9-2.4 [facility] Serum or plasma alkaline [place] sphatase measurementOrdered By: Pawel Cason on 09-24-2024 ALP [Catalytic activity/Vol] 97 U/L 35-104 [facility] Serum or plasma anion gap de termination (moles/volume)Ordered By: Pawel Cason on 09-24-2024 Anion gap [Moles/Vol] 11 mmol/L 5-15 [facility] Serum or plasma calcium alexis urement (mass/volume)Ordered By: Pawel Cason on 09-24-2024 Calcium [Mass/Vol] 8.7 mg/dL 7.6-11.0 [facility] Serum or plasma potassium me asurementOrdered By: Pawel Cason on 09-24-2024 Potassium [Moles/Vol] 3.9 mmol/L 3.3-5.1 [facility] Serum or plasma sodium measu rement (moles/volume)Ordered By: Pawel Cason on 09-24-2024 Sodium [Moles/Vol] 133 mmol/L 133-145 [facility] Serum or plasma urea nitroge n measurement (mass/volume)Ordered By: Pawel Cason on 09-24-2024 Urea nitrogen [Mass/Vol] 10 mg/dL 4-19 [facility] Total proteinOrdered By: Pawel Cason on 09-24-2024 Protein [Mass/Vol] 6.8 g/dL 5.9-8.4 [facility] UA DIP, URINE (POC)on 2024 BILIRUBIN UA (POCT) Negative Negative [facility] CLARITY UA (POCT) Clear [facility] COLOR UA (POCT) Yellow [facility] GLUCOSE UA (POCT) Negative Negative mg/dL [facility] Hemoglobin Ql (U) Negative Negative [facility] Interpretation and review of laboratory results Abnormal [facility] KETONE UA (POCT) Negative Negative mg/dL [facility] LEUKOCYTES UA (POCT) Small Abnormal [facility] NITRITE [facility] (POCT) Negative Negative [facility] PH UA (POCT) 5.5 4.5 - 8.0 [facility] Protein Ql (U) Negative Negative mg/dL [facility] SPECIFIC GRAVITY UA (POCT) 1.01 1.005 - 1.030 [facility] UROBILINOGEN UA (POCT) 1 Mary Ellen l E.U./dL [facility] Location:[facility], [address] [place] [address], [place], [place], [id number] [place] [address] POINT OF CARE [facility] White blood cell (WBC) count Ordered By: Pawel Casno on 09-24-2024 WBC (Bld) [#/Vol] 10.1 10*3/uL 4.4-11.[address] [facility] [address] CHEST W IVCONon CT CHEST W IVCON Normal [facility] CT Chest W contrast Nubia IMPRESSION: 1. No CT evidence of metastatic disease to the chest. 2. Sequela of prior granulomatous exposure. 3. Mild pulmonary fibrosis. Melt Supervisor: [facility] Transcribe Date/Time: Sep 23 2024 4:37P Dictated by : BIBI MEJIA MD This examination was interpreted and the report reviewed and electronically signed by: BIBI MEJIA MD on Sep 23 2024 4:44PM [facility] DIVISION OF RADIOLOGY * * *Final Report* * * DATE OF EXAM: Sep 23 2024 4:19PM [facility] 0539 - CT CHEST W IVCON [...] Left hip arthroplasty. DIVISION OF RADIOLOGY Provider, [facility] - 09/23/2024 * * *Final Report* * * DATE OF EXAM: Sep 23 2024 4:19PM [facility] 0539 - CT CHEST W IVCON [...] prior granulomatous exposure. 3. Mild pulmonary fibrosis. Melt Supervisor: SABINO Transcribe Date/Time: Sep 23 2024 4:37P Dictated by : BIBI MEJIA MD This examination was interpreted and the report reviewed and electronically signed by: BIBI MEJIA MD on Sep 23 2024 4:44PM [facility] Radiology Study observation (narrative) [facility] CT Chest W contrast IVOrdere d By: [facility] Provider on 09-23-2024 [facility] MRI PELVIS WO/W IVCONon 08-30 MRI PELVIS WO/W IVCON Normal [facility] CNPNon 09-22-2024 CNPN Normal [facility] CNPNon 09-18-2024 CNPN Normal [facility] CNOVon 09-17-2024 CNOV Normal [facility] CBC W Auto Differential pane l (Bld)on 09-16-2024 Basophils (Bld) [#/Vol] 0.12 10*3/uL High [facility] Basophils/100 WBC (Bld) 1.2 % [facility] Differential cell count method Nom (Bld) Auto [facility] Eosinophils (Bld) [#/Vol] 0.09 10*3/uL [facility] Eosinophils/100 WBC (Bld) 0.9 % [facility] Erythrocyte distribution width (RBC) [Ratio] 17.1 % High 11.5 - 15.0 % [facility] Hematocrit (Bld) [Volume fraction] 38.8 % 36.0 - 46.0 % [facility] Hemoglobin (Bld) [Mass/Vol] 12 g/dL 11.5 - 15.5 g/dL [facility] Immature granulocytes (Bld) [#/Vol] 0.03 10*3/uL [facility] Immature granulocytes/100 WBC (Bld) 0.3 % [facility] Interpretation and review of laboratory results Abnormal [facility] Lymphocytes (Bld) [#/Vol] 1.13 10*3/uL [facility] Lymphocytes/100 WBC (Bld) 11.5 % [facility] MCH (RBC) [Entitic mass] 25.9 pg Low 26.0 - 34.0 pg [facility] MCHC (RBC) [Mass/Vol] 30.9 g/dL 30.5 - 36.0 g/dL [facility] MCV (RBC) [Entitic vol] 83.8 fL 80.0 - 100.0 fL [facility] Monocytes (Bld) [#/Vol] 0.82 10*3/uL [facility] Monocytes/100 WBC (Bld) 8.3 % [facility] Neutrophils (Bld) [#/Vol] 7.64 10*3/uL High [facility] Neutrophils/100 WBC (Bld) 77.8 % [facility] Nucleated RBC (Bld) [#/Vol] [facility] Nucleated RBC/100 WBC (Bld) [Ratio] 0 % /100 WBC [facility] Platelet mean volume (Bld) [Entitic vol] 10.9 fL 9.0 - 12.7 fL [facility] Platelets (Bld) [#/Vol] 275 10*3/uL [facility] RBC (Bld) [#/Vol] 4.63 10*6/uL 3.90 - 5.2 0 m/uL [facility] WBC (Bld) [#/Vol] 9.83 10*3/uL [facility] Basophils (Bld) [#/Vol] 0.12 10*3/uL High <0.11 [facility] Comment on above: Order Comment: Speci men Type: BLOOD SPECIMENOrdering Facility: [facility] Address: [address] [place], [place] [address] Performed By: #### 5 7021-8 ####[facility] MILLCLIFFWNCLIA [id number] [place] [address] [place] Basophils/100 WBC (Bld) 1.2 % Normal [facility] Comment on above: Order Comment: Speci men Type: BLOOD SPECIMENOrdering Facility: [facility] Address: [address] [place] [address] Performed By: #### 5 7021-8 ####[facility] ALYSSAWZEVLIA [id number] [place] [address] [place] Differential cell count method Nom (Bld) Auto Normal [facility] Comment on above: Order Comment: Speci men Type: BLOOD SPECIMENOrdering Facility: [facility] Address: [address] [place] [address] Performed By: #### 5 7021-8 ####[facility] FLORIDAZEVA [id number] [place] [address] [place] Eosinophils (Bld) [#/Vol] 0.09 10*3/uL Normal <0.46 [facility] Comment on above: Order Comment: Speci men Type: BLOOD SPECIMENOrdering Facility: [facility] Address: [address] [place] [address] Performed By: #### 5 7021-8 ####[facility] FLORIDAHAMLETA [id number] [place] [address] [place] Eosinophils/100 WBC (Bld) 0.9 % Normal [facility] Comment on above: Order Comment: Speci men Type: BLOOD SPECIMENOrdering Facility: [facility] Address: [address] [place] [address] Performed By: #### 5 7021-8 ####[facility] CENTERLIA [id number] [place] [address] [place] Erythrocyte distribution width (RBC) [Ratio] 17.1 % High 11.5-15.0 [facility] Comment on above: Order Comment: Speci men Type: BLOOD SPECIMENOrdering Facility: [facility] Address: [address] [place] [address] Performed By: #### 5 7021-8 ####[facility] FL[facility]IDANCDEL[facility] [id number] [place] [address] [place] Hematocrit (Bld) [Volume fraction] 38.8 % Normal 36.0-46.0 [facility] Comment on above: Order Comment: Speci men Type: BLOOD SPECIMENOrdering Facility: [facility] Address: [address] [place] [address] Performed By: #### 5 7021-8 ####[facility] [id number] [place] [address] [place] Hemoglobin (Bld) [Mass/Vol] 12.0 g/dL Normal 11.5-15.5 [facility] Comment on above: Order Comment: Speci men Type: BLOOD SPECIMENOrdering Facility: [facility] Address: [address] [place] [address] Performed By: #### 5 7021-8 ####[facility] HOSPITALA [id number] [place] [address] [place] Immature granulocytes (Bld) [#/Vol] 0.03 10*3/uL Normal <0.10 [facility] Comment on above: Order Comment: Speci men Type: BLOOD SPECIMENOrdering Facility: [facility] Address: [address] [place] [address] Performed By: #### 5 7021-8 ####[facility] FLORIDANCLIA [id number] [place] [address] [place] Immature granulocytes/100 WBC (Bld) 0.3 % Normal [facility] Comment on above: Order Comment: Speci men Type: BLOOD SPECIMENOrdering Facility: [facility] Address: [address] [place] [address] Performed By: #### 5 7021-8 ####[facility] MILLWNCLIA [id number] [place] [address] [place] Lymphocytes (Bld) [#/Vol] 1.13 10*3/uL Normal 1.00-4.00 [facility] Comment on above: Order Comment: Speci men Type: BLOOD SPECIMENOrdering Facility: [facility] Address: [address] [place] [address] Performed By: #### 5 7021-8 ####[facility] FLORIDANCLIA [id number] [place] [address] [place] Lymphocytes/100 WBC (Bld) 11.5 % Normal [facility] Comment on above: Order Comment: Speci men Type: BLOOD SPECIMENOrdering Facility: [facility] Address: [address] [place] [address] Performed By: #### 5 7021-8 ####[facility] FLORIDANCLIA [id number] [place] [address] [place] MCH (RBC) [Entitic mass] 25.9 pg Low 26.0-34.0 [facility] Comment on above: Order Comment: Speci men Type: BLOOD SPECIMENOrdering Facility: [facility] Address: [address] [place] [address] Performed By: #### 5 7021-8 ####[facility] FLORIDANCLIA [id number] [place] [address] [place] MCHC (RBC) [Mass/Vol] 30.9 g/dL Normal 30.5-36.0 [facility] Comment on above: Order Comment: Speci men Type: BLOOD SPECIMENOrdering Facility: [facility] Address: [address] [place] [address] Performed By: #### 5 7021-8 ####[facility] CENTERLIA [id number] [place] [address] [place] MCV (RBC) [Entitic vol] 83.8 fL Normal 80.0-100.[address] [facility] Comment on above: Order Comment: Speci men Type: BLOOD SPECIMENOrdering Facility: [facility] Address: [address] [place] [address] Performed By: #### 5 7021-8 ####[facility] [id number] [place] [address] [place] Monocytes (Bld) [#/Vol] 0.82 10*3/uL Normal <0.87 [facility] Comment on above: Order Comment: Speci men Type: BLOOD SPECIMENOrdering Facility: [facility] Address: [address] [place] [address] Performed By: #### 5 7021-8 ####[facility] [id number] [place] [address] [place] Monocytes/100 WBC (Bld) 8.3 % Normal [facility] Comment on above: Order Comment: Speci men Type: BLOOD SPECIMENOrdering Facility: [facility] Address: [address] [place] [address] Performed By: #### 5 7021-8 ####[facility] [id number] [place] [address] [place] Neutrophils (Bld) [#/Vol] 7.64 10*3/uL High 1.45-7.50 [facility] Comment on above: Order Comment: Speci men Type: BLOOD SPECIMENOrdering Facility: [facility] Address: [address] [place] [address] Performed By: #### 5 7021-8 ####[facility] [id number] [place] [address] [place] Neutrophils/100 WBC (Bld) 77.8 % Normal [facility] Comment on above: Order Comment: Speci men Type: BLOOD SPECIMENOrdering Facility: [facility] Address: [address] [place] [address] Performed By: #### 5 7021-8 ####[facility] [id number] [place] [address] [place] Nucleated RBC (Bld) [#/Vol] 10*3/uL Normal <0.01 [facility] Comment on above: Order Comment: Speci men Type: BLOOD SPECIMENOrdering Facility: [facility] Address: [address] [place] [address] Performed By: #### 5 7021-8 ####[facility] [id number] [place] [address] [place] Nucleated RBC/100 WBC (Bld) [Ratio] 0.0 /100 WBC Normal [facility] Comment on above: Order Comment: Speci men Type: BLOOD SPECIMENOrdering Facility: [facility] Address: [address] [place] [address] Performed By: #### 5 7021-8 ####[facility] [id number] [place] [address] [place] Platelet mean volume (Bld) [Entitic vol] 10.9 fL Normal 9.0-12.7 [facility] Comment on above: Order Comment: Speci men Type: BLOOD SPECIMENOrdering Facility: [facility] Address: [address] [place] [address] Performed By: #### 5 7021-8 ####[facility] [id number] [place] [address] [place] Platelets (Bld) [#/Vol] 275 10*3/uL Normal 150-400 [facility] Comment on above: Order Comment: Speci men Type: BLOOD SPECIMENOrdering Facility: [facility] Address: [address] [place] [address] Performed By: #### 5 7021-8 ####[facility] ALYSSAALBANYNCLIA [id number] [place] [address] [place] RBC (Bld) [#/Vol] 4.63 10*6/uL Normal 3.90-5.20 [facility] Comment on above: Order Comment: Speci men Type: BLOOD SPECIMENOrdering Facility: [facility] Address: [address] [place] [address] Performed By: #### 5 7021-8 ####[facility] FLORIDANCLIA [id number] [place] [address] [place] WBC (Bld) [#/Vol] 9.83 10*3/uL Normal 3.70-11.00 [facility] Comment on above: Order Comment: Speci men Type: BLOOD SPECIMENOrdering Facility: [facility] Address: [address] [place] [address] Performed By: #### 5 7021-8 ####[facility] FLORIDANCLIA [id number] [place] [address] [place] CNPNon 09-16-[address] [facility] metabolic 2000 panelOrdered By: Frannie Puente on 09-16-2024 Albumin [Mass/Vol] 3.9 g/dL 3.9 - 4.9 g/dL [facility] ALP [Catalytic activity/Vol] 104 U/L 34 - 123 U/L [facility] ALT [Catalytic activity/Vol] 10 U/L 7 - 38 U/L [facility] Anion gap [Moles/Vol] 10 mmol/L 8 - 15 mmol/L [facility] AST [Catalytic activity/Vol] 19 U/L 13 - 35 U/L [facility] Bilirubin [Mass/Vol] 0.3 mg/dL 0.2 - 1 .3 mg/dL [facility] Calcium [Mass/Vol] 9.4 mg/dL 8.5 - 10. 2 mg/dL [facility] Chloride [Moles/Vol] 102 mmol/L 98 - 10 7 mmol/L [facility] CO2 [Moles/Vol] 22 mmol/L 22 - 30 mmol/L [facility] Creatinine [Mass/Vol] 0.7 mg/dL 0.58 - 0.96 mg/dL [facility] GFR/1.73 sq M.predicted among non-blacks MDRD (S/P/Bld) [Vol rate/Area] 96 mL/min/{1.73_m2} - PINF [facility] Comment on above: Estimated Glomerular Filtration [...] [Mass/Vol] 94 mg/dL 74 - 99 mg/dL [facility] Comment on above: The [place] Diabete s Association (ADA) provides guidance for [...] Standards of Medical Care in Diabetes 2016, [place] [employer] Association. Diabetes Care. 2016.39(Suppl 1). Interpretation and review of laboratory results Abnormal [facility] Potassium [Moles/Vol] 3.8 mmol/L 3.7 - 5.1 mmol/L [facility] Protein [Mass/Vol] 7.4 g/dL 6.3 - 8.0 g/dL [facility] Sodium [Moles/Vol] 134 mmol/L Low 136 - 144 mmol/L [facility] Urea nitrogen [Mass/Vol] 14 mg/dL 7 - 21 mg/dL [facility] Comprehensive metabolic 2000 panelon 09-16-2024 Albumin [Mass/Vol] 3.9 g/dL Normal 3.9-4.9 [facility] Comment on above: Order Comment: Speci men Type: BLOOD SPECIMENOrdering Facility: [facility] Address: [address] [place] [address] Performed By: #### 2 4323-8 ####[facility] HOSPITALWNCLIA [id number] [place] [address] [place] ALP [Catalytic activity/Vol] 104 U/L Normal 34-123 [facility] Comment on above: Order Comment: Speci men Type: BLOOD SPECIMENOrdering Facility: [facility] Address: [address] [place] [address] Performed By: #### 2 4323-8 ####[facility] HOSPITALWNCLIA [id number] [place] [address] [place] ALT [Catalytic activity/Vol] 10 U/L Normal 7-38 [facility] Comment on above: Order Comment: Speci men Type: BLOOD SPECIMENOrdering Facility: [facility] Address: [address] [place] [address] Performed By: #### 2 4323-8 ####[facility] CENTERLIA [id number] [place] [address] [place] Anion gap [Moles/Vol] 10 mmol/L Normal 8-15 [facility] Comment on above: Order Comment: Speci men Type: BLOOD SPECIMENOrdering Facility: [facility] Address: [address] [place] [address] Performed By: #### 2 4323-8 ####[facility] MILLWNCLIA [id number] [place] [address] [place] AST [Catalytic activity/Vol] 19 U/L Normal 13-35 [facility] Comment on above: Order Comment: Speci men Type: BLOOD SPECIMENOrdering Facility: [facility] Address: [address] [place] [address] Performed By: #### 2 4323-8 ####[facility] RIGOBERTO MILLTOWNCLIA [id number] [place] [address] [place] Bilirubin [Mass/Vol] 0.3 mg/dL Normal 0.2-1.3 [facility] Comment on above: Order Comment: Speci men Type: BLOOD SPECIMENOrdering Facility: [facility] Address: [address] [place] [address] Performed By: #### 2 4323-8 ####[facility]ITALWNCLIA [id number] [place] [address] [place] Calcium [Mass/Vol] 9.4 mg/dL Normal 8.5-10.2 [facility] Comment on above: Order Comment: Speci men Type: BLOOD SPECIMENOrdering Facility: [facility] Address: [address] [place] [address] Performed By: #### 2 4323-8 ####[facility] FLORIDANCLIA [id number] [place] [address] [place] Chloride [Moles/Vol] 102 mmol/L Normal 98-107 [facility] Comment on above: Order Comment: Speci men Type: BLOOD SPECIMENOrdering Facility: [facility] Address: [address] [place] [address] Performed By: #### 2 4323-8 ####[facility] MILLTOWNCLIA [id number] [place] [address] [place] CO2 [Moles/Vol] 22 mmol/L Normal 22-30 [facility] Comment on above: Order Comment: Speci men Type: BLOOD SPECIMENOrdering Facility: [facility] Address: [address] [place] [address] Performed By: #### 2 4323-8 ####[facility] HOSPITALWNCLIA [id number] [place] [address] [place] Creatinine [Mass/Vol] 0.70 mg/dL Normal 0.58-0.96 [facility] Comment on above: Order Comment: Mindy mcfarlane Type: BLOOD SPECIMENOrdering Facility: [facility] Address: [address] [place] [address] Performed By: #### 2 4323-8 ####[facility] [id number] [place] [address] [place] Creatinine and Glomerular filtration rate.predicted panel (S/P/Bld) 96 mL/min/1.73m??? Normal >=60 [facility] Comment on above: Order Comment: Mindy mcfarlane Type: BLOOD SPECIMENOrdering Facility: [facility] Address: [address] [place] [address] Result Comment: Sonia mated Glomerular Filtration Rate [...] actual GFR. Performed By: #### 2 4323-8 ####[facility] [id number] [place] [address] [place] Glucose [Mass/Vol] 94 mg/dL Normal 74-99 [facility] Comment on above: Order Comment: Mindy mcfarlane Type: BLOOD SPECIMENOrdering Facility: [facility] Address: [address] [place] [address] Result Comment: The [place] Diabetes Association (ADA) provides guidance for cutoff [...] Standards of Medical Care in Diabetes 2016, [place] Diabetes [employer]. Diabetes Care. 2016.39(Suppl 1). Performed By: #### 2 4323-8 ####[facility] RIGOBERTO SHAHMICK [id number] [place] [address] [place] Potassium [Moles/Vol] 3.8 mmol/L Normal 3.7-5.1 [facility] Comment on above: Order Comment: Speci men Type: BLOOD SPECIMENOrdering Facility: [facility] Address: [address] [place], [place] [address] Performed By: #### 2 4323-8 ####[facility] FLORIDANICOLE [id number] [place] [address] [place] Protein [Mass/Vol] 7.4 g/dL Normal 6.3-8.0 [facility] Comment on above: Order Comment: Speci men Type: BLOOD SPECIMENOrdering Facility: [facility] Address: [address] [place], [place] [address] Performed By: #### 2 4323-8 ####[facility] FLORIDANICOLE [id number] [place] [address] [place] Sodium [Moles/Vol] 134 mmol/L Low 136-144 [facility] Comment on above: Order Comment: Speci men Type: BLOOD SPECIMENOrdering Facility: [facility] Address: [address] [place] [address] Performed By: #### 2 4323-8 ####[facility] [id number] [place] [address] [place] Urea nitrogen [Mass/Vol] 14 mg/dL Normal 7-21 [facility] Comment on above: Order Comment: Speci men Type: BLOOD SPECIMENOrdering Facility: [facility] Address: [address] [place] [address] Performed By: #### 2 4323-8 ####[facility] [place]IGOBERTO SHAHALBANYNICOLE [id number] [place] [address] [place] DPYD/UGT1A1 GENOTYPING PANEL on 09-16-2024 DPYD/UGT1A1 GENOTYPING PANEL RESULT Normal [facility] Comment on above: Order Comment: Speci men Type: BLOOD SPECIMENOrdering Facility: [facility] Address: [facility] [place] [address] Result Comment: [facility] ([facility]) DPYD and UGT1A1 GenotypingLaboratory Accession Number: [id number] Genotype: *1/*1DPYD Activity Score: 2DPYD Predicted Phenotype: DPYD Normal CczvvqsuuevCPJ4V9 Genotype: *1/*4HPR8C3 Predicted Phenotype: UGT1A1 Normal MetabolizerInterpretation:Two normal function [...] increased function UGT1A1 allele or two increased hcjqygkxOXX9T9 alleles were observed in this sample (see [...] involved in the metabolism of fluoropyrimidines. The CUK5Q8ynhy encodes UDP-glucuronosyltransferase (UGT). UGT is involved in [...] an autosomalrecessive inborn error of metabolism (OMIM: 004576). DPD deficiencyexhibits a wide range of phenotypic [...] list below) in the DPYD gene (OMIM 834534) ahoHNO5R5 gene (OMIM 480329). This test does not detect all sequencevariants [...] orabsence of the following variants, RefSNP ID: [id number], [id number] (TA repeats), and [id number].DPYD star alleles and targeted variants:RefSNP ID Legacy Total Allele Highest Allele Name Frequency Frequency General Population (Population)No variantdetected *[id number] *2A 0.6% 2.4% (Eur F)[id number] *8 0.01% 0.03% (S )[id number] *10 n/[id number] *12 0.0008% 0.003% (S )[id number] *13 0.03% 0.06% (Eur F)[id number] Y186C 0.2% 2.15% ()[id number] c.2846A>T 0.3% 0.5% (Eur NF)[id number] HapB3 1.4% 2.1 % (Eur NF)[id number] HapB3(c.1236G>A) 1.4% 2.1% (Eur NF)Population frequencies are from gnomAD and may be different inspecific ethnic groups. The allele frequency shown is the total allelefrequency in all populations. The highest allele frequency for asingle population is also noted (Eur F = Guyanese, Eur NF = non-Guyanese, S = South ). Note: [id number] (HapB3)and [id number] (c.1236G>A) are in linkage disequilibrium thus aretypically seen together.References:1) Clinical Pharmacogenetics Implementation Consortium (CPIC):www.CPICpgx.org2) Pharmacogene Variation Consortium (PharmVar): www.PharmVar.org3) Genome Aggregation Database V2.1.1 (gnomAD), accessed July2021, https://gnomad.broadinstitrayle.org4) Yumiko M, Adrián EM, Kings JM, et al. PharmacogenomicsKnowledge for Personalized Medicine Clinical Pharmacology andTherapeutics (2012) 92(4): 414-417.5) Sky U, Jerilyn LM, Rosita SM, et al. Clinical PharmacogeneticsImplementation Consortium (CPIC) Guideline for DihydropyrimidineDehydrogenase Genotype and Fluoropyrimidine Dosin Update. ClinPharmacol Ther. 2018;103(2):210-216.6) Vitals (vitals.com), [place] of Medicine 2020. Dihydropyrimidinedehydrogenase deficiency, accessed 14 February 2021,https://medlineplus.gov/genetics/condition/dihydropyrimid gem-lqyhivkfesidf-rdkgarbwjc/#resources7) Meredith N, Nicol MATHEW, Vicky RCM, van shilpi ABP. Purine andPyrimidine Metabolism: Pyrimidine Metabolism: DihydropyrimidineDehydrogenase. Frank's Principles and Practice of MedicalGenetics and Genomics: Metabolic Disorders, Seventh Edition. Edited byDelfina Rodriguez al, Elsevier. 2020. Sections 6.3.4 - 6.3.4.4https://zhn-zodhaumgprp-sxp.ccmain.[facility].org/#!/freeman nt/book/3-s2.0-Z4746597316860595865?scrollTo=%06ll44326875) Violette RS, Maggi MH, Nasreen CE, et al. Clinical PharmacogeneticsImplementation Consortium (CPIC) Guideline for UGT1A1 and AtazanavirPrescribing. Clinical Pharmacology and Therapeutics (2016) Apr;99(4):363-9.9) King Karol, Viky TRINIDAD. Overview of Glibert's syndrome. Drug TherBull. 2019 b 57(2):27-30.10) [facility] 2020, Gilbert Syndrome, accessed 14 February 2021,https://my.[facility].org/health/diseases/34951-cxsh erts-syndromeDisclaimer:This test was developed and its performance characteristics determinedby [facility]'s Pathology and Laboratory Medicine Department. Ithas not been cleared or approved by the FDA. [facility] is regulated under CLIAas certified to perform high-complexity testing. This test is used forclinical purposes. It should not be regarded as investigational or forresearch.Testing and interpretation performed at [facility], [address] [place] [address]. CLIA Number: [id number] reviewed by Keri Yancey MD Performed By: #### D UPNL1 ####[facility]LLUM[facility] LIMSCLIA [id number] [place] [address] [place] HBV core Ab Ser Qlon 025 HBV core Ab Ql (S) Negative Normal Negative [facility] Comment on above: Order Comment: Speci men Type: BLOOD SPECIMENOrdering Facility: [facility] Address: [address] [place] [address] Result Comment: No e vidence of current or past infection with Hepatitis B virus. Should recent infection be suspected, repeat testing may be considered 3-4 weeks after this draw. Performed By: #### 2 2322-2, 00008-1, 5195-3, 16985-0 ####[facility] LABCLIA [id number] [place] [address] [place] HBV surface Ab Ql (S)on 08-29 HBV surface Ab Qn (S) <8.00 Normal [facility] Comment on above: Order Comment: Speci men Type: BLOOD SPECIMENOrdering Facility: [facility] Address: [address] [place] [address] Result Comment: <8 m IU/mL: No serological evidence of immunity to Hepatitis B Virus.>/= 8 to <12 mIU/mL: No serological evidence of immunity to Hepatitis B Virus.>/= 12 mIU/mL: Consistent with serological evidence of immunity to Hepatitis B Virus. Performed By: #### 2 2322-2, 07695-0, 5195-3, 59983-0 ####[facility] LABCLIA [id number] [place] [address] [place] HBV surface Ab Ser Qlon 08-29 HBV surface Ab Ql (S) Negative Normal [facility] Comment on above: Order Comment: Speci men Type: BLOOD SPECIMENOrdering Facility: [facility] Address: [address] [place] [address] Result Comment: No s erological evidence of immunity to Hepatitis B Virus. Performed By: #### 2 2322-2, 66350-3, 5195-3, 42294-2 ####[facility] LABCLIA [id number] [place] [address] [place] HBV surface Ag Ser Qlon 08-29 HBV surface Ag Ql (S) Negative Normal Negative [facility] Comment on above: Order Comment: Speci men Type: BLOOD SPECIMENOrdering Facility: [facility] Address: [address] [place] [address] Performed By: #### 2 2322-2, 01504-1, 5195-3, 32938-6 ####[facility] LABCLIA [id number] [place] [address] [place] HCV Ab Ser Qlon 09-16-2024 HCV Ab Ql (S) Negative Normal Negative [facility] Comment on above: Order Comment: Speci men Type: BLOOD SPECIMENOrdering Facility: [facility] Address: [address] [place] [address] Result Comment: The result suggests no evidence of active infection with Hepatitis C virus. Should recent infection be suspected, repeat testing may be considered 4-6 weeks after this draw. Performed By: #### 1 6128-1 ####[facility] LABCLIA [id number] [place] [address] [place] HIV 1+2 Ab IA Qlon 5 HIV 1 and 2 Ab IA.rapid Nom (S/P/Bld) Normal [facility] Comment on above: Order Comment: Speci men Type: BLOOD SPECIMENOrdering Facility: [facility] Address: [address] [place] [address] Result Comment: Test not indicated. Performed By: #### 2 2322-2, 62487-8, 5195-3, 97660-1 ####[facility] LABCLIA [id number] [place] [address] [place] HIV 1+2 Ab+HIV1 p24 Ag IA Ql Non-Reactive Normal Nonreactive [facility] Comment on above: Order Comment: Speci men Type: BLOOD SPECIMENOrdering Facility: [facility] Address: [address] [place] [address] Performed By: #### 2 2322-2, 68145-8, 5-3, 71775-1 ####[facility] LABCLIA [id number] [place] [address] [place] HIV immunoassay testing algorithm interpretation (S/P/Bld) [Interp] Normal [facility] Comment on above: Order Comment: Speci men Type: BLOOD SPECIMENOrdering Facility: [facility] Address: [address] [place] [address] Result Comment: No e vidence of HIV-1 or HIV-2 infection. Should recent infection be suspected, repeat testing may be considered 2-3 weeks after this draw.[place] Rev. Code 3701.243(E): This information has been [...] or diagnoses. Performed By: #### 2 2322-2, 81584-1, 5195-3, 35856-2 ####[facility] LABCLIA [id number] [facility] [place] [place] [address] [place] US LEG VEIN DVT UNL VAS LABo n 09-16-2024 US LEG VEIN DVT UNL VAS LAB Normal [facility] CNOVSPon 09-15-2024 CNOVSP Normal [facility] CNPNon 09-15-2024 CNPN Normal [facility] Surgery Visit Reporton 09-15 Surgery Visit Report [facility] [address] [place] [address] OFFICE VISIT Date of Service: 09/15/24 MR#: [id number] Acct: [id number] Name: MARIMAR WANG Rep #: [id number] : 1960 Provider: Dr. Kenya fuentes MD Age/Sex: 64/F Location: [facility] Status: Signed Intake Vital Signs 09/03/24 14:00 [...] QHS MENTAL HEALTH 6 09/15/24 History peg 969-lsbcijxiqjqb-fqptowz n 1 1 drp OP 4X/DAY DRY [...] Constipation 09/15/24 History gram/dose oral powder (Miralax) bulwjr-ztzymwrr-wrlptmf See Rx Instructions PO .COMPLEX 09/15/24 Rx 36,000-114,000-180,000 unit #300 caps capsule,delay rel (Creon) acetaminophen 500 mg tablet 1,000 mg PO Q6H PRN fever or pain 11/15/23 09/15/24 History atorvastatin 80 mg tablet 80 mg PO QHS 11/15/23 09/15/24 His tory hydrocortisone 2.5 % topical cream 1 applic MT BID PRN Crohn's 10/1909/15/24 Rx with perineal [...] right groin (more content not included)... Normal [facility] Jeremy 09-10-2024 [facility] MARIMAR WANG ([id number]) 1960 F Date Time Provider Department 09/10/24 [...] Buck LPN Nurse for Dr. Jennifer Arias, [employer] [facility] Sarah Pearson PA-C 09/16/2024 11:56 AM [...] Fully Assessed Reason for Visit: Patient Question [8007] Continuity Of Care [906] Cmt: Dr. Josh [...] 80 mg by mouth once daily. - lvwsfi-qvhejbwz-tbxwkuv (CREON 36) 36,000-114,000- 180,000 unit delayed release [...] mg tab (more content not included)... Normal [facility] CNPNon 09-07-2024 CNPN Normal [facility] Absolute lymphocyte countOrd ered By: Kenya Garcia on 09-03-2024 Lymphocytes Auto (Unsp spec) [#/Vol] 0.97 10*3/uL 0.83-4.51 [facility] Absolute neutrophil countOrd ered By: Kenya Garcia on 09-03-2024 Neutrophils (Bld) [#/Vol] 6.1 10*3/uL 2.0-7.7 [facility] Automated lymphocyte count a s percentage of total leukocytesOrdered By: Kenya Garcia on 09-03-2024 Lymphocytes/100 WBC Auto (Unsp spec) 11.9 % Low 19-41 [facility] Basic Metabolic Profile (BMP )on 09-03-2024 BUN/CRE 16.0 RATIO Normal 10-20 [facility] Comment on above: Performed By: #### L 500.2500, L100.0100 ####[facility] [address] [place], [address] CA,Total 8.2 mg/dL Low 8.5-10.1 [facility] Comment on above: Performed By: #### L 500.2500, L100.0100 ####[facility] [address] [place], [address] Chloride [Moles/Vol] 102 mmol/L Normal 98-107 [facility] Comment on above: Performed By: #### L 500.2500, L100.0100 ####[facility] [address] [place], [address] CO2 [Moles/Vol] 24.0 mmol/L Normal 21.0-32.0 [facility] Comment on above: Performed By: #### L 500.2500, L100.0100 ####[facility] [address] [place], [address] Creatinine [Mass/Vol] 0.50 mg/dL Low 0.55-1.02 [facility] Comment on above: Result Comment: The validity of the calculated GFR GFRAA in patients over 70 years has not been determined. Clinical correlation is essential. Performed By: #### L 500.2500, L100.0100 ####[facility] [address] [place], [address] ECRCL 76.90 ml/min Normal [facility] Comment on above: Performed By: #### L 500.2500, L100.0100 ####[facility] [address] [place], [address] EST GFR - AA 159 mL/min Normal >60 [facility] Comment on above: Result Comment: Afri can Ghanaian GFR Calc Performed By: #### L 500.2500, L100.0100 ####[facility] [address] [place], [address] GAP 7 Normal 5-15 [facility] Comment on above: Performed By: #### L 500.2500, L100.0100 ####[facility] [address] [place], [address] GFR/1.73 sq M.predicted among non-blacks MDRD (S/P/Bld) [Vol rate/Area] 132 mL/min/{1.73_m2} Normal >60 [facility] Comment on above: Result Comment: Non- GFR Calc Performed By: #### L 500.2500, L100.0100 ####[facility] [address] [place], [address] Glucose [Mass/Vol] 92 mg/dL Normal 74-106 [facility] Comment on above: Performed By: #### L 500.2500, L100.0100 ####[facility] [address] [place], [address] Potassium [Moles/Vol] 3.2 mmol/L Low 3.5-5.1 [facility] Comment on above: Performed By: #### L 500.2500, L100.0100 ####[facility] [address] [place], [address] Sodium [Moles/Vol] 133 mmol/L Low 136-145 [facility] Comment on above: Performed By: #### L 500.2500, L100.0100 ####[facility] [address] [place], [address] Urea nitrogen [Mass/Vol] 8 mg/dL Normal 7-18 [facility] Comment on above: Performed By: #### L 500.2500, L100.0100 ####[facility] [address] [place], [address] Basophil percentageOrdered B y: Kenya Garcia on 09-03-2024 Basophils/100 WBC (Bld) 0.7 % 0-1 [facility] Blood urea nitrogen (BUN)/cr eatinine ratioOrdered By: Kenya Garcia on 09-03-2024 Urea nitrogen/Creatinine [Mass ratio] 16.0 mg/mg 10-20 [facility] CBC W/Diff, Automatedon Absolute Lymph 0.97 X10 3/uL Normal 0.83-4.51 [facility] Comment on above: Performed By: #### L 500.2500, L100.0100 ####[facility] [address] [place], [address] Absolute Neut 6.1 X10 3/uL Normal 2.0-7.7 [facility] Comment on above: Performed By: #### L 500.2500, L100.0100 ####[facility] [address] [place], [address] Basophils/100 WBC (Bld) 0.7 % Normal 0-1 [facility] Comment on above: Performed By: #### L 500.2500, L100.0100 ####[facility] [address] [place], [address] Eosinophils/100 WBC (Bld) 0.5 % Normal 0-5 [facility] Comment on above: Performed By: #### L 500.2500, L100.0100 ####[facility] [address] [place], [address] Erythrocyte distribution width (RBC) [Ratio] 17.3 % High 11.6-14.6 [facility] Comment on above: Performed By: #### L 500.2500, L100.0100 ####[facility] [address] [place], [address] Hematocrit (Bld) [Volume fraction] 31.2 % Low 37-47 [facility] Comment on above: Performed By: #### L 500.2500, L100.0100 ####[facility] [address] [place], [address] Hemoglobin (Bld) [Mass/Vol] 9.6 g/dL Low 12.0-15.0 [facility] Comment on above: Performed By: #### L 500.2500, L100.0100 ####[facility] [address] [place], [address] IG% 0.500 Normal 0.0-0.9 [facility] Comment on above: Result Comment: IG% - Immature Granulocytes (promyelocytes, myelocytes and metamyelocytes) > 1% indicates that a LEFT SHIFT is Present. Performed By: #### L 500.2500, L100.0100 ####[facility] [address] [place], [address] Lymphocytes/100 WBC (Bld) 11.9 % Low 19-41 [facility] Comment on above: Performed By: #### L 500.2500, L100.0100 ####[facility] [address] [place], [address] MCH (RBC) [Entitic mass] 25.5 pg Low 27.0-32.0 [facility] Comment on above: Performed By: #### L 500.2500, L100.0100 ####[facility] [address] [place], [address] MCHC (RBC) [Mass/Vol] 30.8 g/dL Low 32-36 [facility] Comment on above: Performed By: #### L 500.2500, L100.0100 ####[facility] [address] [place], [address] MCV (RBC) [Entitic vol] 83.0 fL Normal 81-99 [facility] Comment on above: Performed By: #### L 500.2500, L100.0100 ####[facility] [address] [place], [address] Monocytes/100 WBC (Bld) 11.7 % High 0-10 [facility] Comment on above: Performed By: #### L 500.2500, L100.0100 ####[facility] [address] [place], [address] Neutrophils/100 WBC (Bld) 74.7 % High 47-70 [facility] Comment on above: Performed By: #### L 500.2500, L100.0100 ####[facility] [address] [place], [address] Nucleated RBC (Bld) [#/Vol] 0 10*3/uL Normal 0-5 [facility] Comment on above: Performed By: #### L 500.2500, L100.0100 ####[facility] [address] [place], [address] Platelet mean volume (Bld) [Entitic vol] 11.4 fL Normal 6.2-12.0 [facility] Comment on above: Performed By: #### L 500.2500, L100.0100 ####[facility] [address] [place], [address] Platelets (Bld) [#/Vol] 219 10*3/uL Normal 150-450 [facility] Comment on above: Performed By: #### L 500.2500, L100.0100 ####[facility] [address] [place], [address] RBC (Bld) [#/Vol] 3.76 10*6/uL Low 4.2-5.4 [facility] Comment on above: Performed By: #### L 500.2500, L100.0100 ####[facility] [address] [place], [address] RDW SD 52.7 fl High 35.1-43.9 [facility] Comment on above: Performed By: #### L 500.2500, L100.0100 ####[facility] [address] [place], [place], [address] WBC (Bld) [#/Vol] 8.1 10*3/uL Normal 4.4-11.0 [facility] Comment on above: Performed By: #### L 500.2500, L100.0100 ####[facility] [address] [place], [place], [address] Carbon dioxide measurementOr dered By: Kenya Garcia on 09-03-2024 CO2 [Moles/Vol] 24.0 mmol/L 21.0-32.0 [facility] Chloride measurementOrdered By: Kenya Garcia on 09-03-2024 Chloride [Moles/Vol] 102 mmol/L 98-107 [facility] Eosinophil percentageOrdered By: Kenya Garcia on 09-03-2024 Eosinophils/100 WBC (Bld) 0.5 % 0-5 [facility] Erythrocyte distribution wid th ratioOrdered By: Kenya Garcia on 09-03-2024 Erythrocyte distribution width (RBC) [Ratio] 17.3 % High 11.6-14.6 [facility] Erythrocyte distribution wid th standard deviationOrdered By: Kenya Garcia on 09-03-2024 Erythrocyte distribution width (RBC) [Entitic vol] 52.7 fL High 35.1-43.9 [facility] Erythrocyte distribution width (RBC) [Ratio] 52.7 fl High 35.1-43.9 [facility] Estimated glomerular filtrat ion rate (GFR) AmericanOrdered By: Kenya Garcia on 09-03-2024 Estimated GFR (MDRD) Amer 159 mL/min >60 [facility] Comment on above: GFR Calc Estimation of creatinine olga aranceOrdered By: Kenya Garcia on 09-03-2024 Estimated Creatinine Clearance Calc 76.90 ml/min [facility] Glomerular filtration rate ( GFR) estimationOrdered By: Kenya Garcia on 09-03-2024 Estimated GFR (MDRD) Non-Af Amer 132 mL/min >60 [facility] Comment on above: Non- GFR Calc GFR/1.73 sq M.predicted among non-blacks MDRD (S/P/Bld) [Vol rate/Area] 132 mL/min/{1.73_m2} >60 [facility] Comment on above: Non- GFR Calc Glucose measurementOrdered B y: Kenya Radha on 09-03-2024 Glucose [Mass/Vol] 92 mg/dL 74-106 [facility] Hematocrit Auto (Bld) [Volum e fraction]Ordered By: Kenya Garcia on 09-03-2024 Hematocrit (Bld) [Volume fraction] 31.2 % Low 37-47 [facility] Hemoglobin measurementOrdere d By: Kenya Garcia on 09-03-2024 Hemoglobin (Bld) [Mass/Vol] 9.6 g/dL Low 12.0-15.0 [facility] Immature granulocytes/100 WB C Auto (Bld)Ordered By: Kenya Garcia on 09-03-2024 Immature granulocytes/100 WBC (Bld) 0.500 % 0.0-0.9 [facility] Comment on above: IG% - Immature Granu locytes (promyelocytes, myelocytes and metamyelocytes) > 1% indicates that a LEFT SHIFT is Present. Lymphocytes Auto (Unsp spec) [#/Vol]Ordered By: Kenya Garcia on 09-03-2024 Lymphocytes (Bld) [#/Vol] 0.97 10*3/uL 0.83-4.51 [facility] Lymphocytes/100 WBC Auto (Un sp spec)Ordered By: Kenya Garcia on 09-03-2024 Lymphocytes/100 WBC (Bld) 11.9 % Low 19-41 [facility] MCV (mean corpuscular volume ) determinationOrdered By: Kenya Garcia on 09-03-2024 MCV (RBC) [Entitic vol] 83.0 fL 81-99 [facility] MR/[id number] 09-03-2024 MR/POSTOPAN2 [facility] Medical Records Department [address] [place] [address] Anesthesia Postop Eval II 09/03/24 1608 MR#: [id number] Acct: [id number] Name: MARIMAR WANG Rep #: [id number] : 1960 64 From: Stas Young MD PCP: Julio Corina, GEOLOGY ASSOCIATE-C Status:ADM AMOR Y Race: C Location: [facility] [id number] Anesthesia Postop Eval I Sum Postop Eval [...] MD Cosigner Signature: Date CC: Signed Normal [facility] Mean corpuscular hemoglobin (MCH) determinationOrdered By: Kenya Garcia on 09-03-2024 MCH (RBC) [Entitic mass] 25.5 pg Low 27.0-32.0 [facility] Mean corpuscular hemoglobin concentration (MCHC) determinationOrdered By: Kenya Garcia on 09-03-2024 MCHC (RBC) [Mass/Vol] 30.8 g/dL Low 32-36 [facility] Mean platelet volume determi nationOrdered By: Kenya Garcia on 09-03-2024 Platelet mean volume (Bld) [Entitic vol] 11.4 fL 6.2-12.0 [facility] Monocyte percentageOrdered B y: Kenya Garcia on 09-03-2024 Monocytes/100 WBC (Bld) 11.7 % High 0-10 [facility] Neutrophil percentageOrdered By: Kenya Garcia on 09-03-2024 Neutrophils/100 WBC (Bld) 74.7 % High 47-70 [facility] Nucleated red blood cell per centageOrdered By: Kenya Garcia on 09-03-2024 Nucleated RBC/100 WBC (Bld) [Ratio] 0 % 0-5 [facility] Platelet countOrdered By: St yury Garcia on 09-03-2024 Platelets (Bld) [#/Vol] 219 10*3/uL 150-450 [facility] Potassium measurementOrdered By: Kenya Garcia on 09-03-2024 Potassium [Moles/Vol] 3.2 mmol/L Low 3.5-5.1 [facility] RBC Auto (Bld) [#/Vol]Ordere d By: Kenya Garcia on 09-03-2024 RBC (Bld) [#/Vol] 3.76 10*6/uL Low 4.2-5.4 [facility] Serum anion gap measurementO rdered By: Kenya Garcia on 09-03-2024 Anion gap [Moles/Vol] 7 mmol/L 5-15 [facility] Serum or plasma calcium alexis urement (mass/volume)Ordered By: Kenya Garcia on 09-03-2024 Calcium [Mass/Vol] 8.2 mg/dL Low 8.5-10.1 [facility] Serum or plasma creatinine m easurement (mass/volume)Ordered By: Kenya Garcia on 09-03-2024 Creatinine [Mass/Vol] 0.50 mg/dL Low 0.55-1.02 [facility] Comment on above: The validity of the calculated GFR & GFRAA in patients over 70 years has not been determined. Clinical correlation is essential. Serum or plasma urea nitroge n measurement (mass/volume)Ordered By: Kenya Garcia on 09-03-2024 Urea nitrogen [Mass/Vol] 8 mg/dL 7-18 [facility] Sodium levelOrdered By: Swapnil paez Riveraalfredo on 09-03-2024 Sodium [Moles/Vol] 133 mmol/L Low 136-145 [facility] White blood cell (WBC) count Ordered By: Kenya Riveraalfredo on 09-03-2024 WBC (Bld) [#/Vol] 8.1 10*3/uL 4.4-11.0 [facility] Abdomen/Pelvis W IV Cont ONL Yon 09-02-2024 Abdomen/Pelvis W IV Cont ONLY [facility] Imaging Services [address] [place] [address] Abdomen/Pelvis W IV Cont ONLY MR#: [id number] Acct: [id number] Name: MARIMAR WANG Rep #: [id number] : 1960 F 64 From: Pablo Mendoza MD PCP: Julio Arriaga NP-C Status: REG ER Study: Abdomen/Pelvis W IV Cont ONLY Date of Exam: Exam# [id number] Ordering Dr: Sonia Germain DO PROCEDURE: ABDOMEN/PELVIS [...] technique). Reading Location: [facility] CC: SINAI Arriaga; Dr. Sonia Gemrain DO Melt Supervisor: Signed Normal [facility] Albumin to globulin ratioOrd ered By: Sonia Germain on 09-02-2024 Albumin/Globulin [Mass ratio] 0.7 {ratio} Low 0.9-2.4 [facility] Bilirubin Test strip Ql (U)O rdered By: Sonia Germain on 09-02-2024 Bilirubin Ql (U) Negative Negative [facility] Bilirubin, totalOrdered By: Sonia Germain on 09-02-2024 Bilirubin [Mass/Vol] 0.30 mg/dL 0.20-1.00 [facility] Comment on above: For patients on eltr ombopag therapy, use of Dimension [place] TBIL is not recommended. CBC W/Diff, Automatedon Absolute Lymph 0.64 X10 3/uL Low 0.83-4.51 [facility] Comment on above: Performed By: #### L 499.0042 #### [facility] [address] [place], [address] Absolute Neut 9.5 X10 3/uL High 2.0-7.7 [facility] Comment on above: Performed By: #### L 499.0042 #### [facility] [address] [place], [address] Basophils/100 WBC (Bld) 0.8 % Normal 0-1 [facility] Comment on above: Performed By: #### L 499.0042 #### [facility] [address] [place], [address] Eosinophils/100 WBC (Bld) 0.4 % Normal 0-5 [facility] Comment on above: Performed By: #### L 499.0042 #### [facility] [address] [place], [address] Erythrocyte distribution width (RBC) [Ratio] 17.3 % High 11.6-14.6 [facility] Comment on above: Performed By: #### L 499.0042 #### [facility] [address] [place], [address] Hematocrit (Bld) [Volume fraction] 34.1 % Low 37-47 [facility] Comment on above: Performed By: #### L 499.0042 #### [facility] [address] [place], [address] Hemoglobin (Bld) [Mass/Vol] 10.4 g/dL Low 12.0-15.0 [facility] Comment on above: Performed By: #### L 499.0042 #### [facility] [address] [place], [address] IG% 0.600 Normal 0.0-0.9 [facility] Comment on above: Result Comment: IG% - Immature Granulocytes (promyelocytes, myelocytes and metamyelocytes) > 1% indicates that a LEFT SHIFT is Present. Performed By: #### L 499.0042 #### [facility] [address] [place], [address] Lymphocytes/100 WBC (Bld) 5.7 % Low 19-41 [facility] Comment on above: Performed By: #### L 499.0042 #### [facility] [address] [place], [address] MCH (RBC) [Entitic mass] 25.7 pg Low 27.0-32.0 [facility] Comment on above: Performed By: #### L 499.0042 #### [facility] [address] [place], [address] MCHC (RBC) [Mass/Vol] 30.5 g/dL Low 32-36 [facility] Comment on above: Performed By: #### L 499.0042 #### [facility] [address] [place], [address] MCV (RBC) [Entitic vol] 84.4 fL Normal 81-99 [facility] Comment on above: Performed By: #### L 499.0042 #### [facility] [address] [place], [address] Monocytes/100 WBC (Bld) 8.7 % Normal 0-10 [facility] Comment on above: Performed By: #### L 499.0042 #### [facility] [address] [place], [address] Neutrophils/100 WBC (Bld) 83.8 % High 47-70 [facility] Comment on above: Performed By: #### L 499.0042 #### [facility] [address] [place], [address] Nucleated RBC (Bld) [#/Vol] 0 10*3/uL Normal 0-5 [facility] Comment on above: Performed By: #### L 499.0042 #### [facility] [address] [place], [address] Platelet mean volume (Bld) [Entitic vol] 11.0 fL Normal 6.2-12.0 [facility] Comment on above: Performed By: #### L 499.0042 #### [facility] [address] [place], [address] Platelets (Bld) [#/Vol] 247 10*3/uL Normal 150-450 [facility] Comment on above: Performed By: #### L 499.0042 #### [facility] [address] [place], [address] RBC (Bld) [#/Vol] 4.04 10*6/uL Low 4.2-5.4 [facility] Comment on above: Performed By: #### L 499.0042 #### [facility] [address] [place], [address] RDW SD 53.5 fl High 35.1-43.9 [facility] Comment on above: Performed By: #### L 499.0042 #### [facility] [address] [place], [place], [address] WBC (Bld) [#/Vol] 11.3 10*3/uL High 4.4-11.0 [facility] Comment on above: Performed By: #### L 499.0042 #### [facility] [address] [place], [address] CNOVon 09-02-2024 CNOV Normal [facility] Chest PA and Lateralon 09-02 Chest PA and Lateral [facility] Imaging Services [address] [place], [place] [address] Chest PA and Lateral MR#: [id number] Acct: [id number] Name: MARIMAR WANG Rep #: [id number] : 1960 F 64 From: Joan Dow MD PCP: Julio Arriaga NP-C Status: [facility] Study: Chest PA and Lateral Date of Exam: 09/02/24 Exam# [id number] Ordering Dr: Sonia Germain DO EXAM: XR Chest, 2 Views CLINICAL INDICATION: TECHNIQUE: Frontal and lateral views of the chest. COMPARISON: No relevant prior studies available. FINDINGS: LUNGS AND PLEURAL SPACES: Unremarkable. No consolidation. No pneumothorax. HEART: Unremarkable. No cardiomegaly. MEDIASTINUM: Unremarkable. Normal mediastinal contour. BONES/JOINTS: Unremarkable. No acute fracture. RAD/Chest PA and Lateral IMPRESSION: No acute cardiopulmonary process. Reading Location: [facility] CC: GEOLOGY ASSOCIATE-C Julio Arriaga; Dr. Sonia Germain DO Melt Supervisor: Signed Normal [facility] Comprehensive Metabolic Prof ilon 09-02-2024 Albumin [Mass/Vol] 2.7 g/dL Low 3.2-5.0 [facility] Comment on above: Performed By: #### L 499.0042 #### [facility] [address] [place], [address] Albumin/Globulin [Mass ratio] 0.7 {ratio} Low 0.9-2.4 [facility] Comment on above: Performed By: #### L 499.0042 #### [facility] [address] [place], [address] ALK P 87 U/L Normal 45-117 [facility] Comment on above: Performed By: #### L 499.0042 #### [facility] [address] [place], [address] ALT [Catalytic activity/Vol] 17 U/L Normal 13-56 [facility] Comment on above: Performed By: #### L 499.0042 #### [facility] [address] [place], [address] AST [Catalytic activity/Vol] 18 U/L Normal 15-37 [facility] Comment on above: Performed By: #### L 499.0042 #### [facility] [address] [place], [address] Bilirubin [Mass/Vol] 0.30 mg/dL Normal 0.20-1.00 [facility] Comment on above: Result Comment: For patients on eltrombopag therapy, use of Dimension [place] TBIL is not recommended. Performed By: #### L 499.0042 #### [facility] [address] [place], [address] BUN/CRE 13.9 RATIO Normal 10-20 [facility] Comment on above: Performed By: #### L 499.0042 #### [facility] [address] [place], [address] CA,Total 8.7 mg/dL Normal 8.5-10.1 [facility] Comment on above: Performed By: #### L 499.0042 #### [facility] [address] [place], [address] Chloride [Moles/Vol] 102 mmol/L Normal 98-107 [facility] Comment on above: Performed By: #### L 499.0042 #### [facility] [address] [place], [address] CO2 [Moles/Vol] 24.0 mmol/L Normal 21.0-32.0 [facility] Comment on above: Performed By: #### L 499.0042 #### [facility] [address] [place], [address] Creatinine [Mass/Vol] 0.72 mg/dL Normal 0.55-1.02 [facility] Comment on above: Result Comment: The validity of the calculated GFR GFRAA in patients over 70 years has not been determined. Clinical correlation is essential. Performed By: #### L 499.0042 #### [facility] [address] [place], [address] ECRCL 74.18 ml/min Normal [facility] Comment on above: Performed By: #### L 499.0042 #### [facility] [address] [place], [address] EST GFR - AA 104 mL/min Normal >60 [facility] Comment on above: Result Comment: Afri can Ghanaian GFR Calc Performed By: #### L 499.0042 #### [facility] [address] [place], [address] GAP 9 Normal 5-15 [facility] Comment on above: Performed By: #### L 499.0042 #### [facility] [address] [place], [address] GFR/1.73 sq M.predicted among non-blacks MDRD (S/P/Bld) [Vol rate/Area] 86 mL/min/{1.73_m2} Normal >60 [facility] Comment on above: Result Comment: Non- GFR Calc Performed By: #### L 499.0042 #### [facility] [address] [place], [address] Globulin (S) [Mass/Vol] 4.0 g/dL Normal 2.2-4.2 [facility] Comment on above: Performed By: #### L 499.0042 #### [facility] [address] [place], [address] Glucose [Mass/Vol] 91 mg/dL Normal 74-106 [facility] Comment on above: Performed By: #### L 499.0042 #### [facility] [address] [place], [address] Potassium [Moles/Vol] 3.3 mmol/L Low 3.5-5.1 [facility] Comment on above: Performed By: #### L 499.0042 #### [facility] [address] [place], [address] Sodium [Moles/Vol] 134 mmol/L Low 136-145 [facility] Comment on above: Performed By: #### L 499.0042 #### [facility] [address] [place], [address] T PROT 6.7 g/dL Normal 6.4-8.2 [facility] Comment on above: Performed By: #### L 499.0042 #### [facility] [address] [place], [address] Urea nitrogen [Mass/Vol] 10 mg/dL Normal 7-18 [facility] Comment on above: Performed By: #### L 499.0042 #### [facility] [address] [place], [address] Emergency Department Summary on 09-02-2024 Emergency Department Summary [facility] Medical Records Department [address] [place] [address] Emergency Department Summary 09/02/24 MR#: [id number] Acct: [id number] Name: MARIMAR WANG Rep #: [id number] : 1960 64 From: Sonia Germain DO PCP: Julio Arriaga NP-Marga Status:ADM AMOR Location: MS3 [id number] History of Present Illness Chief Complaint: [...] complaints or concerns reported at this time. [facility] Medical History Mass of anus [...] QHS MENTAL HEALTH 6 09/01/24 History peg 501-crqymoonkiyw-vjjrupd n 1 1 drp OP 4X/DAY DRY [...] Constipation Unknown History gram/dose oral powder (Miralax) fbwwen-cxfvabnk-iefvtjb See Rx Instructions PO .COMPLEX 09/01/24 Rx 36,000-114,000-180,000 unit #300 caps capsule,delay rel (Creon) acetaminophen 500 mg tablet 1,000 mg PO Q6H PRN fever or pain 11/15/23 09/01/24 History atorvastatin 80 mg tablet 80 mg PO QHS 11/15/23 09/01/24 His tory hydrocortisone 2.5 % topical cream 1 applic MT BID PRN Crohn's 10/19 Unknown Rx with perineal applicator disease #30 grams meclizine 25 mg tablet 25 mg PO DAILY PRN PRN dizziness 0 03/17/24 Unknown History budesonide 3 mg 6 mg (2 x 3 mg) PO DAILY #60 caps 04/09/24 09/01/24 Rx capsule,delayed,extended release herron (more content not included)... Normal [facility] Epithelial cells.squamous LM Ql (Urine sed)Ordered By: Sonia Germain on 09-02-2024 Epithelial cells.squamous LM.HPF (Urine sed) [#/Area] 0 /[HPF] 5-10 [facility] Glucose Ql (U)Ordered By: Joshua Germain on 09-02-2024 Urine Glucose (UA) Normal mg/dl Normal [facility] Hyaline casts LM.LPF (Urine sed) [#/Area]Ordered By: Sonia Germain on 09-02-2024 Hyaline casts (Urine sed) [#/Area] 0 /[LPF] 0-5 [facility] Hyaline casts LM Ql (Urine sed) 0-5 SEEN /lpf 0-5 [facility] Influenza virus A and B and SARS-CoV-2 (COVID-19) and Respiratory syncytial virus RNAOrdered By: Sonia Germain on 09-02-2024 SARS-CoV-2 (COVID-19) RNA CORAL+probe Ql (Unsp spec) SARS-CoV-2 (COVID 19 PCR) Abnormal [facility] Ketones Test strip Ql (U)Ord ered By: Sonia Germain on 09-02-2024 Ketones Ql (U) Negative Negative [facility] - Chemistry and C hemistry - challengeOrdered By: Sonia Germain on 09-02-2024 AST [Catalytic activity/Vol] 18 U/L 15-37 [facility] M100.678on 09-02-2024 M100.678 Copy of report sent to Infection Control Printer MS#[id number] 09/02/24 1313 JPARLET. FLUABV+SARS-CoV-2+RSV Pnl Resp CORAL+probe FLUABV+SARS-CoV-2+RSV Pnl Resp CORAL+probe SARS-CoV-2 (COVID 19) A Positive A INFLUENZA A Negative INFLUENZA B Negative RSV PCR Negative SARS-CoV-2 (COVID 19 PCR) [facility] Comment on above: Performed By: #### L 400.0001, M100.678 ####[facility] [address] [place], [address] MR/POSTOP.ANE 09-02-2024 MR/POSTOP.[facility] Medical Records Department [address] [place] [address] Anesthesia Postop Eval I 09/02/24 1717 MR#: [id number] Acct: [id number] Name: MARIMAR WANG Rep #: [id number] : 1960 64 From: Stas Young MD PCP: Julio Arriaga GEOLOGY ASSOCIATE-C Status:DIS AMOR Y Race: C Location: [place] [address] Anesthesia: Postop Eval I Current Vital Signs [...] Signature: Date Luke Hearn CRNA CC: Signed [facility] Microscopic analysis of urin e for red blood cells (RBC)Ordered By: Sonia Germain on 09-02-2024 Microscopic analysis of urine for red blood cells (RBC) 0 SEEN /hpf 0-5 [facility] Urine RBC 0 SEEN /hpf 0-5 [facility] Mucus LM Ql (Urine sed)Order ed By: Sonia Germain on 09-02-2024 Mucus Ql (Urine sed) 0 SEEN /hpf [facility] Nitrite Test strip Ql (U)Ord ered By: Sonia Germain on 09-02-2024 Nitrite Ql (U) Negative Negative [facility] Operative Reporton Operative Report [facility] Medical Records Department [address] [place] [address] Operative Report 09/02/24 1723 MR#: [id number] Acct: [id number] Name: MARIMAR WANG Rep #: [id number] : 1960 64 From: Kenya Garcia MD PCP: SINAI Arriola Status:ADM AMOR Location: [place] [id number] Problems Associated Problem List Diagnoses (1) Perirectal abscess: (2) Mass of anus: Multi Select Codes Digestive Digestive CPT Codes: 75242 Incision of rectal abscess [place] [address] Anoscopy and biopsy Operative Report (Standard) Operative Information Date of Procedure: 09/02/24 Pre-Operative Diagnosis: Right-sided perirectal abscess Post-Operative Diagnosis: Suspect perianal mass with associated fluid collection/abscess Surgery/Procedure Performed: 1. Incision and drainage of perirectal abscess/fluid collection 2. Biopsy of perianal mass memorial counselor: No Type of Anesthesia: Local and MAC [...] female who presented earlier today to the [place] emergency department with complaints of perianal pain [...] to have a perianal mass. This extended retirement external to the anal verge and seemed [...] prophylaxis not ordered: Treatment Not Indicated 09/02/24 1897 Cosigner Signature (if applicable): CC: SINAI Arriaga; Dr. Kenya Garcia MD Signed Normal [facility] Protein Test strip Ql (U)Ord ered By: Sonia Germain on 09-02-2024 Protein Ql (U) 30 mg/dl High Negative [facility] Serum globulin measurementOr dered By: Sonia Germain on 09-02-2024 Globulin (S) [Mass/Vol] 4.0 g/dL 2.2-4.2 [facility] Serum or plasma alanine alarcon otransferase (ALT) measurementOrdered By: Sonia Germain on 09-02-2024 ALT [Catalytic activity/Vol] 17 U/L 13-56 [facility] Serum or plasma albumin alexis urement (mass/volume)Ordered By: Sonia Germain on 09-02-2024 Albumin [Mass/Vol] 2.7 g/dL Low 3.2-5.0 [facility] Serum or plasma alkaline [place] sphatase measurementOrdered By: Sonia Germain on 09-02-2024 ALP [Catalytic activity/Vol] 87 U/L 45-117 [facility] Squamous epithelial cells de tection in urine sediment by light microscopyOrdered By: Sonia Germain on 09-02-2024 Epithelial cells.squamous LM Ql (Urine sed) 0-5 SEEN /hpf 5-10 [facility] Surgery Specimen Level Nubia 09-02-2024 Surgery Specimen Level IV Patient Age/Sex Location Account Attending Physician MARIMAR WANG 64/F MS3 [id number] Dr. Kenya Garcia MD Specimen: [id number] Received: 09/02/24 Status: SAMREEN Aparicio Num: [id number] Spec Type: Mass Subm Dr: Dr. 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 See comment. 09/04/2024 COMMENT Immunohistochemistry ([id number]) for surrogate HPV marker (p16) will be [...] is submitted in one cassette. 09/03/2024 TC:0 CPT:47533 Patient Age/Sex Location Account Attending Physician MARIMAR WANG 64/F MS3 [id number] Dr. Kenya Garcia MD Signed (signature on file) Dr. Fred Gonzales MD 09/04/24 1212 [facility] Comment on above: Performed By: #### P IRMA ####[facility] [address] [place], [address] Total proteinOrdered By: Ariane Germain on 09-02-2024 Protein [Mass/Vol] 6.7 g/dL 6.4-8.2 [facility] Urate crystals LM.HPF (Urine sed) [#/Area]Ordered By: Sonia Germain on 09-02-2024 Urine Uric Acid Crystals 1+ /hpf [facility] Urinalysis, Completeon 09-02 URIC CRYSTALS 1+ /hpf Normal [facility] Comment on above: Order Comment: CLEAN CATCH Performed By: #### L 400.0001, M100.678 ####[facility] [address] [place], [address] CAST,HYALINE 0-5 SEEN Normal 0-5 [facility] Comment on above: Order Comment: CLEAN CATCH Performed By: #### L 400.0001, M1 ####[facility] [address] [place], [address] EPI,SQUAMOUS 0-5 SEEN Normal 5-10 [facility] Comment on above: Order Comment: CLEAN CATCH Performed By: #### L 400.0001, M100.8 ####[facility] [address] [place], [address] WBC 0-5 SEEN Normal 0-5 [facility] Comment on above: Order Comment: CLEAN CATCH Performed By: #### L 400.0001, M18 ####[facility] [address] [place], [address] BACTERIA 0 SEEN Normal None Seen [facility] Comment on above: Order Comment: CLEAN CATCH Performed By: #### L 400.0001, [id number] ####[facility] [address] [place], [address] Mucus Ql (Urine sed) 0 SEEN Normal [facility] Comment on above: Order Comment: CLEAN CATCH Performed By: #### L 400.0001, M100.678 ####[facility] [address] [place], [place], [address] RBC 0 SEEN Normal 0-5 [facility] Comment on above: Order Comment: CLEAN CATCH Performed By: #### L 400.0001, M100.678 ####[facility] [address] [place], [place], [address] Urine blood detectionOrdered By: Sonia Germain on 09-02-2024 Urine Occult Blood Negative Negative [facility] Urine clarityOrdered By: Ariane Germain on 09-02-2024 Clarity (U) Clear Clear [facility] Urine color determinationOrd ered By: Sonia Germain on 09-02-2024 Color (U) Yellow Yellow [facility] Urine glucose detectionOrder ed By: Sonia Germain on 09-02-2024 Glucose Ql (U) Normal mg/dl Normal [facility] Urine leukocyte esterase det ection by dipstickOrdered By: Snoia Germain on 09-02-2024 Leukocyte esterase Test strip Ql (U) 25 /ul High Negative [facility] Urine pHOrdered By: Sonia corbett on 09-02-2024 pH (U) 6.0 [pH] 5.0 - 8.0 [facility] Urine sediment bacteria coun t by microscopy (number/high power field)Ordered By: Sonia Germain on 09-02-2024 Bacteria LM.HPF (Urine sed) [#/Area] 0 /[HPF] None Seen [facility] Urine sediment uric acid cry stal count by microscopy (number/high power field)Ordered By: Sonia Germain on 09-02-2024 Urate crystals LM.HPF (Urine sed) [#/Area] 1 /[HPF] [facility] Urine specific gravity measu rementOrdered By: Sonia Germain on 09-02-2024 Specific gravity (U) [Rel density] 1.015 1.002-1.030 [facility] Urine urobilinogen measureme ntOrdered By: Sonia Germain on 09-02-2024 Urobilinogen Ql (U) 1 mg/dl High Normal [facility] Urobilinogen Ql (U)Ordered B y: Sonia Germain on 09-02-2024 Urobilinogen (U) [Mass/Vol] 1 mg/dL High Normal [facility] White blood cell countOrdere d By: Sonia Germain on 09-02-2024 Urine WBC 0-5 SEEN /hpf 0-5 [facility] White blood cell count 0-5 SEEN /hpf 0-5 [facility] p16 (initial)on 09-02-2024 p16 (initial) ---- Patient Age/Sex Location Account Attending Physician MARIMAR WANG 64/F [facility]3 [id number] Dr. Kenya Garcia MD Specimen: [id number] Received: 09/04/24 Status: SAMREEN Aparicio Num: [id number] Spec Type: IMMUNO Subm Dr: Dr. Kenya Garcia MD [facility]STIT[facility] [address] [address] SPECIMEN INFORMATION: Tissue Source: Perianal mass biopsy Clinical Info: Perirectal abscesses Specimen Number: [id number] CPT code: 62653,77920 METHODOLOGY: Deparaffinized sections of prefer/formalin-fixed tissue or [...] developed and their performance characteristics determined by [facility]. They may not have been [...] Dr. Fred Gonzales MD 09/07/24 1146 Normal [facility] Comment on above: Performed By: #### L 499.0042 #### [facility] [address] [place], [address] Gastroenterology Visit Repor ton 08-27-2024 Gastroenterology Visit Report [facility] Gastroenterology [address] [place] [address] OFFICE VISIT Date of Service: 08/27/24 MR#: [id number] Acct: [id number] Name: MARIMAR WANG Rep #: [id number] : 1960 Provider: Andrez Friend, DO Age/Sex: 64/F Location: [facility] Status: Signed Intake Vital Signs 03/20/24 12:59 [...] MENTAL HEALTH 10/2708/27/24 History extended release peg 545-kqzuczbnjkyb-ahydifn n 1 1 drp OP 4X/DAY DRY [...] Constipation 08/27/24 History gram/dose oral powder (Miralax) grnxaj-mapuaaxo-xfwbqvj See Rx Instructions PO .COMPLEX 08/27/24 Rx 36,000-114,000-180,000 unit #300 caps capsule,delay rel (Creon) acetaminophen 500 mg tablet 1,000 mg PO Q6H PRN fever or pain 11/15/23 08/27/24 History atorvastatin 80 mg tablet 80 mg PO QDAY 11/15/23 08/27/24 Hi story hydrocortisone 2.5 % topical cream 1 applic MT BID PRN Crohn's 10/1908/27/24 Rx with perineal [...] Osteoporosis Con (more content not included)... Normal [facility] BD DXA - AXIAL SKELETONon BD DXA - AXIAL SKELETON Normal [facility] CBC W Auto Differential pane l (Bld)on 08-20-2024 Basophils (Bld) [#/Vol] 0.10 10*3/uL Normal <0.11 [facility] Comment on above: Order Comment: Speci men Type: BLOOD SPECIMENOrdering Facility: [facility] Address: [address] [place] [address] Performed By: #### 5 7021-8 ####[facility] [id number] [place] [address] [place] Basophils/100 WBC (Bld) 1.1 % Normal [facility] Comment on above: Order Comment: Speci men Type: BLOOD SPECIMENOrdering Facility: [facility] Address: [address] [place] [address] Performed By: #### 5 7021-8 ####[facility] [id number] [place] [address] [place] Differential cell count method Nom (Bld) Auto Normal [facility] Comment on above: Order Comment: Speci men Type: BLOOD SPECIMENOrdering Facility: [facility] Address: [address] [place] [address] Performed By: #### 5 7021-8 ####[facility] MARSHALTIFFANIFroy [id number] [place] [address] [place] Eosinophils (Bld) [#/Vol] 0.19 10*3/uL Normal <0.46 [facility] Comment on above: Order Comment: Speci men Type: BLOOD SPECIMENOrdering Facility: [facility] Address: [address] [place] [address] Performed By: #### 5 7021-8 ####[facility]IDANICOLE [id number] [place] [address] [place] Eosinophils/100 WBC (Bld) 2.2 % Normal [facility] Comment on above: Order Comment: Speci men Type: BLOOD SPECIMENOrdering Facility: [facility] Address: [address] [place] [address] Performed By: #### 5 7021-8 ####[facility] FLORIDANCBLAKE [id number] [place] [address] [place] Erythrocyte distribution width (RBC) [Ratio] 18.5 % High 11.5-15.0 [facility] Comment on above: Order Comment: Speci men Type: BLOOD SPECIMENOrdering Facility: [facility] Address: [address] [place] [address] Performed By: #### 5 7021-8 ####[facility] FLORIDAZEVLIA [id number] [place] [address] [place] Hematocrit (Bld) [Volume fraction] 38.2 % Normal 36.0-46.0 [facility] Comment on above: Order Comment: Speci men Type: BLOOD SPECIMENOrdering Facility: [facility] Address: [address] [place] [address] Performed By: #### 5 7021-8 ####[facility] FLORIDANCLIA [id number] [place] [address] [place] Hemoglobin (Bld) [Mass/Vol] 11.7 g/dL Normal 11.5-15.5 [facility] Comment on above: Order Comment: Speci men Type: BLOOD SPECIMENOrdering Facility: [facility] Address: [address] [place], [place] [address] Performed By: #### 5 7021-8 ####[facility]ITALA [id number] [place] [address] [place] Immature granulocytes (Bld) [#/Vol] 0.04 10*3/uL Normal <0.10 [facility] Comment on above: Order Comment: Speci men Type: BLOOD SPECIMENOrdering Facility: [facility] Address: [address] [place] [address] Performed By: #### 5 7021-8 ####[facility]A [id number] [place] [address] [place] Immature granulocytes/100 WBC (Bld) 0.5 % Normal [facility] Comment on above: Order Comment: Speci men Type: BLOOD SPECIMENOrdering Facility: [facility] Address: [address] [place], [place] [address] Performed By: #### 5 7021-8 ####[facility]ITALA [id number] [place] [address] [place] Lymphocytes (Bld) [#/Vol] 1.22 10*3/uL Normal 1.00-4.00 [facility] Comment on above: Order Comment: Speci men Type: BLOOD SPECIMENOrdering Facility: [facility] Address: [address] [place], [place] [address] Performed By: #### 5 7021-8 ####[facility] CENTERLI [id number] [place] [address] [place] Lymphocytes/100 WBC (Bld) 13.9 % Normal [facility] Comment on above: Order Comment: Speci men Type: BLOOD SPECIMENOrdering Facility: [facility] Address: [address] [place] [address] Performed By: #### 5 7021-8 ####[facility] FLORIDAZEVDELTA [facility] [id number] [place] [address] [place] MCH (RBC) [Entitic mass] 25.2 pg Low 26.0-34.0 [facility] Comment on above: Order Comment: Speci men Type: BLOOD SPECIMENOrdering Facility: [facility] Address: [address] [place] [address] Performed By: #### 5 7021-8 ####[facility] FL[facility]IDAZEVDELTA [facility] [id number] [place] [address] [place] MCHC (RBC) [Mass/Vol] 30.6 g/dL Normal 30.5-36.0 [facility] Comment on above: Order Comment: Speci men Type: BLOOD SPECIMENOrdering Facility: [facility] Address: [address] [place] [address] Performed By: #### 5 7021-8 ####[facility] [id number] [place] [address] [place] MCV (RBC) [Entitic vol] 82.2 fL Normal 80.0-100.[address] [facility] Comment on above: Order Comment: Speci men Type: BLOOD SPECIMENOrdering Facility: [facility] Address: [address] [place] [address] Performed By: #### 5 7021-8 ####[facility] FLORIDANCLI [id number] [place] [address] [place] Monocytes (Bld) [#/Vol] 0.84 10*3/uL Normal <0.87 [facility] Comment on above: Order Comment: Speci men Type: BLOOD SPECIMENOrdering Facility: [facility] Address: [address] [place] [address] Performed By: #### 5 7021-8 ####[facility] FLORIDANCLIA [id number] [place] [address] [place] Monocytes/100 WBC (Bld) 9.6 % Normal [facility] Comment on above: Order Comment: Speci men Type: BLOOD SPECIMENOrdering Facility: [facility] Address: [address] [place] [address] Performed By: #### 5 7021-8 ####[facility] FLORIDANCA [id number] [place] [address] [place] Neutrophils (Bld) [#/Vol] 6.37 10*3/uL Normal 1.45-7.50 [facility] Comment on above: Order Comment: Speci men Type: BLOOD SPECIMENOrdering Facility: [facility] Address: [address] [place] [address] Performed By: #### 5 7021-8 ####[facility]A [id number] [place] [address] [place] Neutrophils/100 WBC (Bld) 72.7 % Normal [facility] Comment on above: Order Comment: Speci men Type: BLOOD SPECIMENOrdering Facility: [facility] Address: [address] [place] [address] Performed By: #### 5 7021-8 ####[facility] CENTERLIA [id number] [place] [address] [place] Nucleated RBC (Bld) [#/Vol] 10*3/uL Normal <0.01 [facility] Comment on above: Order Comment: Speci men Type: BLOOD SPECIMENOrdering Facility: [facility] Address: [address] [place] [address] Performed By: #### 5 7021-8 ####[facility] MILLWNCLIA [id number] [place] [address] [place] Nucleated RBC/100 WBC (Bld) [Ratio] 0.0 /100 WBC Normal [facility] Comment on above: Order Comment: Speci men Type: BLOOD SPECIMENOrdering Facility: [facility] Address: [address] [place] [address] Performed By: #### 5 7021-8 ####[facility] FLORIDAZEVLIA [id number] [place] [address] [place] Platelet mean volume (Bld) [Entitic vol] 10.9 fL Normal 9.0-12.7 [facility] Comment on above: Order Comment: Speci men Type: BLOOD SPECIMENOrdering Facility: [facility] Address: [address] [place] [address] Performed By: #### 5 7021-8 ####[facility]ITALA [id number] [place] [address] [place] Platelets (Bld) [#/Vol] 263 10*3/uL Normal 150-400 [facility] Comment on above: Order Comment: Speci men Type: BLOOD SPECIMENOrdering Facility: [facility] Address: [address] [place] [address] Performed By: #### 5 7021-8 ####[facility] CENTERLIA [id number] [place] [address] [place] RBC (Bld) [#/Vol] 4.65 10*6/uL Normal 3.90-5.20 [facility] Comment on above: Order Comment: Speci men Type: BLOOD SPECIMENOrdering Facility: [facility] Address: [address] [place] [address] Performed By: #### 5 7021-8 ####[facility] CENTERLIA [id number] [place] [address] [place] WBC (Bld) [#/Vol] 8.76 10*3/uL Normal 3.70-11.00 [facility] Comment on above: Order Comment: Speci men Type: BLOOD SPECIMENOrdering Facility: [facility] Address: [address] [place] [address] Performed By: #### 5 7021-8 ####[facility] RIGOBERTO [facility] HOSPITALA [id number] [place] [address] [place] Ferritin SerPl-ncon 2024 Ferritin [Mass/Vol] 117.0 ng/mL Normal 14.7-205.1 [facility] Comment on above: Order Comment: Speci men Type: BLOOD SPECIMENOrdering Facility: [facility] Address: [address] [place] [address] Performed By: #### 2 276-4, 95614-6 ####[facility] LABCLIA [id number] [place] [address] [place] Iron and Iron binding capaci ty panelon 08-20-2024 Iron [Mass/Vol] 21 ug/dL Low 41-186 [facility] Comment on above: Order Comment: Speci men Type: BLOOD SPECIMENOrdering Facility: [facility] Address: [address] [place] [address] Performed By: #### 2 276-4, 41390-3 ####[facility] LABCLIA [id number] [place] [address] [place] Iron binding capacity [Mass/Vol] 281 ug/dL Normal 232-386 [facility] Comment on above: Order Comment: Speci men Type: BLOOD SPECIMENOrdering Facility: [facility] Address: [address] [place] [address] Performed By: #### 2 276-4, 05312-6 ####[facility] LABCLIA [id number] [place] [address] [place] Iron/TIBC [Molar ratio] 7.5 % Low 15.0-57.[address] [facility] Comment on above: Order Comment: Speci men Type: BLOOD SPECIMENOrdering Facility: [facility] Address: [address] [place] [address] Performed By: #### 2 276-4, 76847-7 ####[facility] LABCLIA [id number] [place] [id number] [place] CNPNon 08-17-2024 CNPN Normal [facility] RPR [CCL]on 06-30-2024 Reagin Ab RPR Ql (S) Non-Reactive Normal Nonreactive J l [facility] Comment on above: Result Comment: Rapi d plasma reagin (RPR) test detects non-treponemal antibodies. RPR may be reactive in a variety of infectious and non-infectious conditions. Correlation with clinical picture and with treponemal antibody results is required [place] [address] Bladimir Jean-Baptiste III, M.D. [id number] Performed By: #### 2 [address] #### [place] [id number] FOLATESon 06-29-2024 FOLATES 8.7 ng/ml Normal 8.6 - 58.9 [facility] Comment on above: Performed By: #### 2 [address]773 #### [facility],[address] [place], [place] [id number] RPR Ser Qlon 06-29-2024 Reagin Ab RPR Ql (S) Non-Reactive Normal Nonreactive [facility] Comment on above: Order Comment: Speci men Type: BLOOD SPECIMENOrdering Facility: [facility] Address: [address] [place], [place] [id number] Result Comment: Rapi d plasma reagin (RPR) test detects non-treponemal antibodies. RPR may be reactive in a variety of infectious and non-infectious conditions. Correlation with clinical picture and with treponemal antibody results is required for final interpretation. Performed By: #### 2 0507-0 ####[facility] LABANY [id number] [place] [id number] [place] Jeremy 06-16-2024 CNPN Telephone (RHBATH) -------- MARIMAR WANG ([id number]) 1960 F Date Time Provider Department 06/16/24 JENNIFER ARIAS RHBATH During your visit today, we recorded the following information about you: Rosio Buck LPN 06/16/2024 12:37 PM Signed Patient asking if she can have her Orencia infusions at [facility] at Hematology Oncology. Patient does not [...] that the authorization/orders could be flipped to [place] and there shouldn't be an issue with [...] no further action needed. Infusions completed at [facility] as scheduled on 06/18/2024. Rosio Buck LPN [...] 80 mg by mouth once daily. - xipzjo-dwchigay-drncbeh (CREON 36) 36,000-114,000- 180,000 unit delayed release [...] Comments as of 02/06/2017: [facility] use pharmacy [facility] [place] [place] [address] Problem List As Of Date 06/16/2024 Noted Resolved Fractur (more content not included)... Normal [facility] CNPN Normal [facility] CBC W Auto Differential pane l (Bld)on 06-15-2024 Basophils (Bld) [#/Vol] 0.10 10*3/uL [facility] Basophils/100 WBC (Bld) 1.3 % [facility] Differential cell count method Nom (Bld) Auto [facility] Eosinophils (Bld) [#/Vol] 0.16 10*3/uL [facility] Eosinophils/100 WBC (Bld) 2.1 % [facility] Erythrocyte distribution width (RBC) [Ratio] 16.7 % High 11.5 - 15.0 % [facility] Hematocrit (Bld) [Volume fraction] 32.8 % Low 36.0 - 46.0 % [facility] Hemoglobin (Bld) [Mass/Vol] 9.9 g/dL Low 11.5 - 15.5 g/dL [facility] Immature granulocytes (Bld) [#/Vol] [facility] Immature granulocytes/100 WBC (Bld) 0.3 % [facility] Interpretation and review of laboratory results Abnormal [facility] Lymphocytes (Bld) [#/Vol] 1.53 10*3/uL [facility] Lymphocytes/100 WBC (Bld) 20.0 % [facility] MCH (RBC) [Entitic mass] 23.8 pg Low 26.0 - 34.0 pg [facility] MCHC (RBC) [Mass/Vol] 30.2 g/dL Low 30.5 - 36.0 g/dL [facility] MCV (RBC) [Entitic vol] 78.8 fL Low 80.0 - 100.0 fL [facility] Monocytes (Bld) [#/Vol] 0.65 10*3/uL [facility] Monocytes/100 WBC (Bld) 8.5 % [facility] Neutrophils (Bld) [#/Vol] 5.19 10*3/uL [facility] Neutrophils/100 WBC (Bld) 67.8 % [facility] Nucleated RBC (Bld) [#/Vol] [facility] Nucleated RBC/100 WBC (Bld) [Ratio] 0.0 % /100 WBC [facility] Platelet mean volume (Bld) [Entitic vol] 11.4 fL 9.0 - 12.7 fL [facility] Platelets (Bld) [#/Vol] 248 10*3/uL [facility] RBC (Bld) [#/Vol] 4.16 10*6/uL 3.90 - 5.2 0 m/uL [facility] WBC (Bld) [#/Vol] 7.65 10*3/uL [facility] Basophils (Bld) [#/Vol] 0.10 10*3/uL Normal <0.11 [facility] Comment on above: Order Comment: Speci men Type: BLOOD SPECIMENOrdering Facility: [facility] Address: [address] [place] [address] Performed By: #### 5 7021-8 ####[facility] ALYSSAALEJANDRINALIA [id number] [place] [address] [place] Basophils/100 WBC (Bld) 1.3 % Normal [facility] Comment on above: Order Comment: Speci men Type: BLOOD SPECIMENOrdering Facility: [facility] Address: [address] [place] [address] Performed By: #### 5 7021-8 ####[facility] CENTERLIA [id number] [place] [address] [place] Differential cell count method Nom (Bld) Auto Normal [facility] Comment on above: Order Comment: Speci men Type: BLOOD SPECIMENOrdering Facility: [facility] Address: [address] [place] [address] Performed By: #### 5 7021-8 ####[facility] CENTERLIA [id number] [place] [address] [place] Eosinophils (Bld) [#/Vol] 0.16 10*3/uL Normal <0.46 [facility] Comment on above: Order Comment: Speci men Type: BLOOD SPECIMENOrdering Facility: [facility] Address: [address] [place] [address] Performed By: #### 5 7021-8 ####[facility] MILLWNCLIA [id number] [place] [address] [place] Eosinophils/100 WBC (Bld) 2.1 % Normal [facility] Comment on above: Order Comment: Speci men Type: BLOOD SPECIMENOrdering Facility: [facility] Address: [address] [place] [address] Performed By: #### 5 7021-8 ####[facility] HOSPITALWNCLIA [id number] [place] [address] [place] Erythrocyte distribution width (RBC) [Ratio] 16.7 % High 11.5-15.0 [facility] Comment on above: Order Comment: Speci men Type: BLOOD SPECIMENOrdering Facility: [facility] Address: [address] [place] [address] Performed By: #### 5 7021-8 ####[facility] FLORIDAZEVLIA [id number] [place] [address] [place] Hematocrit (Bld) [Volume fraction] 32.8 % Low 36.0-46.0 [facility] Comment on above: Order Comment: Speci men Type: BLOOD SPECIMENOrdering Facility: [facility] Address: [address] [place] [address] Performed By: #### 5 7021-8 ####[facility] FLORIDAZEVLI [id number] [place] [address] [place] Hemoglobin (Bld) [Mass/Vol] 9.9 g/dL Low 11.5-15.5 [facility] Comment on above: Order Comment: Speci men Type: BLOOD SPECIMENOrdering Facility: [facility] Address: [address] [place] [address] Performed By: #### 5 7021-8 ####[facility] CENTERLIA [id number] [place] [address] [place] Immature granulocytes (Bld) [#/Vol] 10*3/uL Normal <0.10 [facility] Comment on above: Order Comment: Speci men Type: BLOOD SPECIMENOrdering Facility: [facility] Address: [address] [place] [address] Performed By: #### 5 7021-8 ####[facility] FLORIDANCLIA [id number] [place] [address] [place] Immature granulocytes/100 WBC (Bld) 0.3 % Normal [facility] Comment on above: Order Comment: Speci men Type: BLOOD SPECIMENOrdering Facility: [facility] Address: [address] [place] [address] Performed By: #### 5 7021-8 ####[facility] FL[facility]IDANCDEL[facility] [id number] [place] [address] [place] Lymphocytes (Bld) [#/Vol] 1.53 10*3/uL Normal 1.00-4.00 [facility] Comment on above: Order Comment: Speci men Type: BLOOD SPECIMENOrdering Facility: [facility] Address: [address] [place] [address] Performed By: #### 5 7021-8 ####[facility] [id number] [place] [address] [place] Lymphocytes/100 WBC (Bld) 20.0 % Normal [facility] Comment on above: Order Comment: Speci men Type: BLOOD SPECIMENOrdering Facility: [facility] Address: [address] [place] [address] Performed By: #### 5 7021-8 ####[facility] [id number] [place] [address] [place] MCH (RBC) [Entitic mass] 23.8 pg Low 26.0-34.0 [facility] Comment on above: Order Comment: Speci men Type: BLOOD SPECIMENOrdering Facility: [facility] Address: [address] [place], [place] [address] Performed By: #### 5 7021-8 ####[facility] [id number] [place] [address] [place] MCHC (RBC) [Mass/Vol] 30.2 g/dL Low 30.5-36.0 [facility] Comment on above: Order Comment: Speci men Type: BLOOD SPECIMENOrdering Facility: [facility] Address: [address] [place] [address] Performed By: #### 5 7021-8 ####[facility] FLORIDANICOLE [id number] [place] [address] [place] MCV (RBC) [Entitic vol] 78.8 fL Low 80.0-100.[address] [facility] Comment on above: Order Comment: Speci men Type: BLOOD SPECIMENOrdering Facility: [facility] Address: [address] [place] [address] Performed By: #### 5 7021-8 ####[facility] [id number] [place] [address] [place] Monocytes (Bld) [#/Vol] 0.65 10*3/uL Normal <0.87 [facility] Comment on above: Order Comment: Speci men Type: BLOOD SPECIMENOrdering Facility: [facility] Address: [address] [place] [address] Performed By: #### 5 7021-8 ####[facility] FLORIDANCA [id number] [place] [address] [place] Monocytes/100 WBC (Bld) 8.5 % Normal [facility] Comment on above: Order Comment: Speci men Type: BLOOD SPECIMENOrdering Facility: [facility] Address: [address] [place] [address] Performed By: #### 5 7021-8 ####[facility] FLORIDANCLIA [id number] [place] [address] [place] Neutrophils (Bld) [#/Vol] 5.19 10*3/uL Normal 1.45-7.50 [facility] Comment on above: Order Comment: Speci men Type: BLOOD SPECIMENOrdering Facility: [facility] Address: [address] [place] [address] Performed By: #### 5 7021-8 ####[facility] ALYSSAWZEVLIA [id number] [place] [address] [place] Neutrophils/100 WBC (Bld) 67.8 % Normal [facility] Comment on above: Order Comment: Speci men Type: BLOOD SPECIMENOrdering Facility: [facility] Address: [address] [place] [address] Performed By: #### 5 7021-8 ####[facility] FLORIDAZEVLIA [id number] [place] [address] [place] Nucleated RBC (Bld) [#/Vol] 10*3/uL Normal <0.01 [facility] Comment on above: Order Comment: Speci men Type: BLOOD SPECIMENOrdering Facility: [facility] Address: [address] [place] [address] Performed By: #### 5 7021-8 ####[facility] [id number] [place] [address] [place] Nucleated RBC/100 WBC (Bld) [Ratio] 0.0 /100 WBC Normal [facility] Comment on above: Order Comment: Speci men Type: BLOOD SPECIMENOrdering Facility: [facility] Address: [address] [place] [address] Performed By: #### 5 7021-8 ####[facility] MED[facility] CENTERTIFFANIA [id number] [place] [address] [place] Platelet mean volume (Bld) [Entitic vol] 11.4 fL Normal 9.0-12.7 [facility] Comment on above: Order Comment: Speci men Type: BLOOD SPECIMENOrdering Facility: [facility] Address: [address] [place] [address] Performed By: #### 5 7021-8 ####[facility] CENTERLIA [id number] [place] [address] [place] Platelets (Bld) [#/Vol] 248 10*3/uL Normal 150-400 [facility] Comment on above: Order Comment: Speci men Type: BLOOD SPECIMENOrdering Facility: [facility] Address: [address] [place] [address] Performed By: #### 5 7021-8 ####[facility] FLORIDANCA [id number] [place] [address] [place] RBC (Bld) [#/Vol] 4.16 10*6/uL Normal 3.90-5.20 [facility] Comment on above: Order Comment: Speci men Type: BLOOD SPECIMENOrdering Facility: [facility] Address: [address] [place] [address] Performed By: #### 5 7021-8 ####[facility] [id number] [place] [address] [place] WBC (Bld) [#/Vol] 7.65 10*3/uL Normal 3.70-11.00 [facility] Comment on above: Order Comment: Speci men Type: BLOOD SPECIMENOrdering Facility: [facility] Address: [address] [place] [address] Performed By: #### 5 7021-8 ####[facility] [id number] [place] [address] [place] CNOVSPon 06-15-2024 CNOVSP Normal [facility] Ferritin SerPl-mCncon 2023 Ferritin [Mass/Vol] 20.9 ng/mL Normal 14.7-205.1 [facility] Comment on above: Order Comment: Speci men Type: BLOOD SPECIMENOrdering Facility: [facility] Address: [address] [place] [address] Performed By: #### 2 276-4, 55737-2 ####[facility] LABCLIA [id number] [place] [address] [place] Iron and Iron binding capaci ty panelon 06-15-2024 Iron [Mass/Vol] 19 ug/dL Low 41-186 [facility] Comment on above: Order Comment: Speci men Type: BLOOD SPECIMENOrdering Facility: [facility] Address: [address] [place] [address] Performed By: #### 2 276-4, 97953-8 ####[facility] LABCLIA [id number] [address] Iron binding capacity [Mass/Vol] 372 ug/dL Normal 232-386 [facility] Comment on above: Order Comment: Speci men Type: BLOOD SPECIMENOrdering Facility: [facility] Address: [address] [place] [address] Performed By: #### 2 276-4, 16944-6 ####[facility] LABCLIA [id number] [address] STATES OF [facility] Iron/TIBC [Molar ratio] 5.1 % Low 15.0-57.[address] [facility] Comment on above: Order Comment: Speci men Type: BLOOD SPECIMENOrdering Facility: [facility] Address: [address] [place] [address] Performed By: #### 2 276-4, 63278-6 ####[facility] LABIA [id number] [place] [address] [place] Chest PA and Lateralon 06-09 Chest PA and Lateral [facility] Imaging Services [address] [place], [place] [address] Chest PA and Lateral MR#: [id number] Acct: [id number] Name: MARIMAR WANG Rep #: [id number] : 1960 F 64 From: Edgard Flores DO PCP: SINAI Arriola Status: REG CLI Study: Chest PA and Lateral Date of Exam: 06/09/24 Exam# [id number] Ordering Dr: Julio Arriaga NP GEOLOGY ASSOCIATE -C [id number] INDICATION: ABNORMAL CHEST XRAY EXAMINATION/TECHNIQUE: X-RAY - [...] 10:50 EST Reading Location ID and State: [facility] / [place] Tel [phone], Service support , CC: SINAI Arriaga Melt Supervisor: Signed Normal [facility] Brain/Head without Contrasto n 06-06-2024 Brain/Head without Contrast [facility] Imaging Services [address] [place] [address] Brain/Head without Contrast MR#: [id number] Acct: [id number] Name: MARIMAR WANG Rep #: [id number] : 1960 F 64 From: Gaudencio Riggs MD PCP: SINAI Arriola Status: REG ER Study: Brain/Head without Contrast Date of Exam: 04/21 Exam# [id number] Ordering Dr: Gaudencio Ambriz DO [id number] EXAM: CT HEAD WITHOUT INTRAVENOUS CONTRAST CLINICAL [...] , CC: SINAI Arriaga; Gaudencio Ambriz DO Melt Supervisor: Signed Normal [facility] Emergency Department Summary on 06-06-2024 Emergency Department Summary [facility] Medical Records Department [address] [place] [address] Emergency Department Summary 06/06/24 MR#: [id number] Acct: [id number] Name: MARIMAR WANG Rep #: [id number] : 1960 64 From: Gaudencio Ambriz DO [...] underlying trauma was brought in for evaluation [facility] Medical History History of Crohn's [...] HEALTH 11/13/17 03/19/24 History extended release peg 443-hfhsqojonbel-tchkwjl n 1 1 drp OP 4X/DAY DRY [...] 01/09/23 Unknown History gram/dose oral powder (Miralax) qbfdje-zrhvqmst-brxfdbd See Rx Instructions PO .COMPLEX 09/25/23 03/19/24 Rx 36,000-114,000-180,000 unit #300 caps capsule,delay rel (Creon) acetaminophen 500 mg tablet 1,000 mg PO Q6H PRN fever or pain 11/15/23 Unknown History atorvastatin 80 mg tablet 80 mg PO QDAY 11/15/23 Unknown History hydrocortisone 2.5 % topical cream 1 applic MT BID PRN Crohn's 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 Normal [facility] HIP, UNI W/ Pelvis 2-3 Views on 06-06-2024 HIP, UNI W/ Pelvis 2-3 Views [facility] Imaging Services [address] [place] [address] HIP, UNI W/ Pelvis 2-3 Views MR#: [id number] Acct: [id number] Name: MARIMAR WANG Rep #: [id number] : 1960 F 64 From: Gaudencio Riggs MD PCP: Julio Arriaga NP-C Status: REG ER Study: HIP, UNI W/ Pelvis 2-3 Views Date of Exam: 04/21 Exam# [id number] Ordering Dr: Gaudencio Ambriz DO [id number] EXAM: XR LEFT HIP WITH PELVIS WHEN [...] 3:52 EST Reading Location ID and State: [facility] / [place] Tel , Service support , CC: GEOLOGY ASSOCIATE-C Julio Arriaga; Gaudencio Ambriz DO Melt Supervisor: Signed Normal [facility] Hand Min 3 Viewson 4 Hand Min 3 Views [facility] Imaging Services [address] [place] [address] Hand Min 3 Views MR#: [id number] Acct: [id number] Name: MARIMAR WANG Rep #: [id number] : 1960 F 64 From: Gaudencio Riggs MD PCP: SINAI Arriola Status: REG ER Study: Hand Min 3 Views Date of Exam: 06/06/24 Exam# [id number] Ordering Dr: Gaudencio Ambriz DO [id number] EXAM: XR LEFT HAND COMPLETE, 3 OR [...] 4:21 EST Reading Location ID and State: [address] [place] [address] Tel , Service support , CC: SINAI Arriaga; Gaudencio Ambriz DO Melt Supervisor: Signed Normal [facility] Lumbar Spine 2 or 3 Viewson 06-06-2024 Lumbar Spine 2 or 3 Views [facility] Imaging Services [address] [place] [address] Lumbar Spine 2 or 3 Views MR#: [id number] Acct: [id number] Name: MARIMAR WANG Rep #: [id number] : 1960 F 64 From: Gaudencio Riggs MD PCP: SINAI Arriola Status: REG ER Study: Lumbar Spine 2 or 3 Views Date of Exam: Exam# [id number] Ordering Dr: Gaudencio Ambriz DO [id number] EXAM: XR LUMBOSACRAL SPINE, 2 OR 3 [...] , CC: SINAI Arriaga; Gaudencio Ambriz DO Melt Supervisor: Signed Normal [facility] Ribs Uni Min 3V w/PA Cheston 06-06-2024 Ribs Uni Min 3V w/PA Chest [facility] Imaging Services [address] [place] [address] Ribs Uni Min 3V w/PA Chest MR#: [id number] Acct: [id number] Name: MARIMAR WANG Rep #: [id number] : 1960 F 64 From: Karla Roberson PCP: S[facility]AI Arriola Status: REG ER Study: Ribs Uni Min 3V w/PA Chest Date of Exam: 06/06 Exam# [id number] Ordering Dr: Gaudencio Ambriz DO [id number] INDICATION: pain EXAMINATION/TECHNIQUE: X-RAY - XR Ribs [...] Location ID and State: [facility] / [place] Tel , Service support , CC: GEOLOGY ASSOCIATE-C Julio Arriaga; Gaudencio Ambriz DO Melt Supervisor: Signed Normal [facility] Spine Cervical without Contr ason 06-06-2024 Spine Cervical without Contras [facility] Imaging Services [address] [place] [address] Spine Cervical without Contras MR#: [id number] Acct: [id number] Name: MARIMAR WANG Rep #: [id number] : 1960 F 64 From: Gaudencio Riggs MD PCP: SINAI Arriola Status: REG ER Study: Spine Cervical without Contras Date of Exam: 08/06/23 Exam# [id number] Ordering Dr: Gaudencio Ambriz DO [id number] EXAM: CT CERVICAL SPINE WITHOUT INTRAVENOUS CONTRAST [...] 4:18 EST Reading Location ID and State: [facility] / [place] Tel , Service support , CC: SINAI Arriaga; Gaudencio Ambriz DO Melt Supervisor: Signed Normal [facility] Thoracic Spine 3 Viewson Thoracic Spine 3 Views [facility] Imaging Services [address] [place] [address] [id number] Thoracic Spine 3 Views MR#: [id number] Acct: [id number] Name: MARIMAR WANG Rep #: [id number] : 1960 F 64 From: Gaudencio Riggs MD PCP: SINIA Arriola Status: REG ER Study: Thoracic Spine 3 Views Date of Exam: 06/06/24 Exam# [id number] Ordering Dr: Gaudencio Ambriz DO [id number] EXAM: XR THORACIC SPINE, 3 VIEWS CLINICAL [...] , CC: SINAI Arriaga; Gaudencio Ambriz DO Melt Supervisor: Signed [facility] 06-03-2024 [facility] 05-29-2024 [facility] Tele[facility] ([address] ) -------- MARIMAR WANG ([id number]) 1960 F Date Time Provider Department 05/29/24 [...] start taking at least 1 tablet daily ltqe-ldm-doummos. Her protein levels are also low, increase protein in diet. Sarah Pearson PA-C 05/29/24 Candace Alvarenga MA 05/29/2024 4:12 PM Signed Called patient and relayed message. She voiced understanding. Patient states she is unable to take Iron tablets. She states it causes vomiting. She states she received Iron IV through heme/onc in [facility] several years ago. Relayed protein enriched [...] [D50.9] Order(s):CONSULT TO HEMATOLOGY [9014] Order #: [id number]: 1 FUTURE Prescriptions as of 06/01/2024 - [...] 80 mg by mouth once daily. - xxrput-wpawrngw-fcnllew (CREON 36) 36,000-114,000- 180,000 unit delayed release [...] Comments as of 02/06/2017: [facility] use pharmacy [facility] [place] [place] [address] Problem List As Of Date 05/29/2024 Noted Resolved Fracture of triquetrum of left wrist, closed [S* (more content not included)... Normal [facility] CBC W Auto Differential pane l (Bld)on 05-21-2024 Basophils (Bld) [#/Vol] 0.09 10*3/uL [facility] Basophils/100 WBC (Bld) 1.3 % [facility] Differential cell count method Nom (Bld) Auto [facility] Eosinophils (Bld) [#/Vol] 0.19 10*3/uL [facility] Eosinophils/100 WBC (Bld) 2.8 % [facility] Erythrocyte distribution width (RBC) [Ratio] 17.1 % High 11.5 - 15.0 % [facility] Hematocrit (Bld) [Volume fraction] 33.5 % Low 36.0 - 46.0 % [facility] Hemoglobin (Bld) [Mass/Vol] 10.1 g/dL Low 11.5 - 15.5 g/dL [facility] Immature granulocytes (Bld) [#/Vol] 0.03 10*3/uL [facility] Immature granulocytes/100 WBC (Bld) 0.4 % [facility] Interpretation and review of laboratory results Abnormal [facility] Lymphocytes (Bld) [#/Vol] 1.23 10*3/uL [facility] Lymphocytes/100 WBC (Bld) 18.2 % [facility] MCH (RBC) [Entitic mass] 24.5 pg Low 26.0 - 34.0 pg [facility] MCHC (RBC) [Mass/Vol] 30.1 g/dL Low 30.5 - 36.0 g/dL [facility] MCV (RBC) [Entitic vol] 81.3 fL 80.0 - 100.0 fL [facility] Monocytes (Bld) [#/Vol] 0.46 10*3/uL [facility] Monocytes/100 WBC (Bld) 6.8 % [facility] Neutrophils (Bld) [#/Vol] 4.75 10*3/uL [facility] Neutrophils/100 WBC (Bld) 70.5 % [facility] Nucleated RBC (Bld) [#/Vol] [facility] Nucleated RBC/100 WBC (Bld) [Ratio] 0.0 % /100 WBC [facility] Platelet mean volume (Bld) [Entitic vol] 12.3 fL 9.0 - 12.7 fL [facility] Platelets (Bld) [#/Vol] 240 10*3/uL [facility] RBC (Bld) [#/Vol] 4.12 10*6/uL 3.90 - 5.2 0 m/uL [facility] WBC (Bld) [#/Vol] 6.75 10*3/uL [facility] Basophils (Bld) [#/Vol] 0.09 10*3/uL Normal <0.11 [facility] Comment on above: Order Comment: Speci men Type: BLOOD SPECIMEN Ordering Facility: [facility] Address: [address] [place] [address] Performed By: #### 5 7021-8 #### [facility] CLIA [id number] [address] Basophils/100 WBC (Bld) 1.3 % Normal [facility] Comment on above: Order Comment: Speci men Type: BLOOD SPECIMEN Ordering Facility: [facility] Address: [address] [place] [address] Performed By: #### 5 7021-8 #### [facility] CLIA [id number] [address] OF [facility] Differential cell count method Nom (Bld) Auto Normal [facility] Comment on above: Order Comment: Speci men Type: BLOOD SPECIMEN Ordering Facility: [facility] Address: [address] [place] [address] Performed By: #### 5 7021-8 #### [facility] CLIA [id number] [address] [place] Eosinophils (Bld) [#/Vol] 0.19 10*3/uL Normal <0.46 [facility] Comment on above: Order Comment: Speci men Type: BLOOD SPECIMEN Ordering Facility: [facility] Address: [facility] [place] [address] Performed By: #### 5 7021-8 #### [facility] CLIA [id number] [address] [place] Eosinophils/100 WBC (Bld) 2.8 % Normal [facility] Comment on above: Order Comment: Speci men Type: BLOOD SPECIMEN Ordering Facility: [facility] Address: [address] [place] [address] Performed By: #### 5 7021-8 #### [facility] CLIA [id number] [address] [place] Erythrocyte distribution width (RBC) [Ratio] 17.1 % High 11.5-15.0 [facility] Comment on above: Order Comment: Speci men Type: BLOOD SPECIMEN Ordering Facility: [facility] Address: [facility] [place] [address] Performed By: #### 5 7021-8 #### [facility] CLIA [id number] [address] [place] Hematocrit (Bld) [Volume fraction] 33.5 % Low 36.0-46.0 [facility] Comment on above: Order Comment: Speci men Type: BLOOD SPECIMEN Ordering Facility: [facility] Address: [address] [place] [address] Performed By: #### 5 7021-8 #### [facility] CLIA [id number] [address] [place] Hemoglobin (Bld) [Mass/Vol] 10.1 g/dL Low 11.5-15.5 [facility] Comment on above: Order Comment: Speci men Type: BLOOD SPECIMEN Ordering Facility: [facility] Address: [address] [place] [address] Performed By: #### 5 7021-8 #### [facility] CLIA [id number] [address] [place] Immature granulocytes (Bld) [#/Vol] 0.03 10*3/uL Normal <0.10 [facility] Comment on above: Order Comment: Speci men Type: BLOOD SPECIMEN Ordering Facility: [facility] Address: [address] [place] [address] Performed By: #### 5 7021-8 #### [facility] CLIA [id number] [address] [place] Immature granulocytes/100 WBC (Bld) 0.4 % Normal [facility] Comment on above: Order Comment: Speci men Type: BLOOD SPECIMEN Ordering Facility: [facility] Address: [address] [place] [address] Performed By: #### 5 7021-8 #### [facility] CLIA [id number] [address] [place] [address] [place] Lymphocytes (Bld) [#/Vol] 1.23 10*3/uL Normal 1.00-4.00 [facility] Comment on above: Order Comment: Speci men Type: BLOOD SPECIMEN Ordering Facility: [facility] Address: [address] [place] [address] Performed By: #### 5 7021-8 #### [facility] CLIA [id number] [address] STATES OF [facility] Lymphocytes/100 WBC (Bld) 18.2 % Normal [facility] Comment on above: Order Comment: Speci men Type: BLOOD SPECIMEN Ordering Facility: [facility] Address: [address] [place] [address] Performed By: #### 5 7021-8 #### [facility] CLIA [id number] [address] [place] MCH (RBC) [Entitic mass] 24.5 pg Low 26.0-34.0 [facility] Comment on above: Order Comment: Speci men Type: BLOOD SPECIMEN Ordering Facility: [facility] Address: [address] [place] [address] Performed By: #### 5 7021-8 #### [facility] CLIA [id number] [address] [place] MCHC (RBC) [Mass/Vol] 30.1 g/dL Low 30.5-36.0 [facility] Comment on above: Order Comment: Speci men Type: BLOOD SPECIMEN Ordering Facility: [facility] Address: [address] [place] [address] Performed By: #### 5 7021-8 #### [facility] CLIA [id number] [address] MCV (RBC) [Entitic vol] 81.3 fL Normal 80.0-100.0 [facility] Comment on above: Order Comment: Speci men Type: BLOOD SPECIMEN Ordering Facility: [facility] Address: [address] [place] [address] Performed By: #### 5 7021-8 #### [facility] CLIA [id number] [address] [place] Monocytes (Bld) [#/Vol] 0.46 10*3/uL Normal <0.87 [facility] Comment on above: Order Comment: Speci men Type: BLOOD SPECIMEN Ordering Facility: [facility] Address: [address] [place] [address] Performed By: #### 5 7021-8 #### [facility] CLIA [id number] [address] Monocytes/100 WBC (Bld) 6.8 % Normal [facility] Comment on above: Order Comment: Speci men Type: BLOOD SPECIMEN Ordering Facility: [facility] Address: [address] [place] [address] Performed By: #### 5 7021-8 #### [facility] CLIA [id number] [address] Neutrophils (Bld) [#/Vol] 4.75 10*3/uL Normal 1.45-7.50 [facility] Comment on above: Order Comment: Speci men Type: BLOOD SPECIMEN Ordering Facility: [facility] Address: [address] [place] [address] Performed By: #### 5 7021-8 #### [facility] CLIA [id number] [address] [place] Neutrophils/100 WBC (Bld) 70.5 % Normal [facility] Comment on above: Order Comment: Speci men Type: BLOOD SPECIMEN Ordering Facility: [facility] Address: [address] [place] [address] Performed By: #### 5 7021-8 #### [facility] CLIA [id number] [address] [place] Nucleated RBC (Bld) [#/Vol] 10*3/uL Normal <0.01 [facility] Comment on above: Order Comment: Speci men Type: BLOOD SPECIMEN Ordering Facility: [facility] Address: [address] [place] [address] Performed By: #### 5 7021-8 #### [facility] CLIA [id number] [address] [place] Nucleated RBC/100 WBC (Bld) [Ratio] 0.0 /100 WBC Normal [facility] Comment on above: Order Comment: Speci men Type: BLOOD SPECIMEN Ordering Facility: [facility] Address: [address] [place] [address] Performed By: #### 5 7021-8 #### [facility] CLIA [id number] [address] [place] Platelet mean volume (Bld) [Entitic vol] 12.3 fL Normal 9.0-12.7 [facility] Comment on above: Order Comment: Speci men Type: BLOOD SPECIMEN Ordering Facility: [facility] Address: [address] [place] [address] Performed By: #### 5 7021-8 #### [facility] CLIA [id number] [address] OF [place] Platelets (Bld) [#/Vol] 240 10*3/uL Normal 150-400 [facility] Comment on above: Order Comment: Speci men Type: BLOOD SPECIMEN Ordering Facility: [facility] Address: [address] [place] [address] Performed By: #### 5 7021-8 #### [facility] CLIA [id number] [address] OF [place] RBC (Bld) [#/Vol] 4.12 10*6/uL Normal 3.90-5.20 [facility] Comment on above: Order Comment: Speci men Type: BLOOD SPECIMEN Ordering Facility: [facility] Address: [address] [place] [address] Performed By: #### 5 7021-8 #### [facility] CLIA [id number] [address] WBC (Bld) [#/Vol] 6.75 10*3/uL Normal 3.70-11.00 [facility] Comment on above: Order Comment: Speci men Type: BLOOD SPECIMEN Ordering Facility: [facility] Address: [address] [place] [address] Performed By: #### 5 7021-8 #### [facility] CLIA [id number] [address] Comprehensive metabolic 2000 panelon 05-21-2024 Albumin [Mass/Vol] 3.7 g/dL Low 3.9-4.9 [facility] Comment on above: Order Comment: Speci men Type: BLOOD SPECIMEN Ordering Facility: [facility] Address: [address] [place] [address] Performed By: #### 2 4323-8 #### [facility] CLIA [id number] [address] ALP [Catalytic activity/Vol] 82 U/L Normal 34-123 [facility] Comment on above: Order Comment: Speci men Type: BLOOD SPECIMEN Ordering Facility: [facility] Address: [address] [place] [address] Performed By: #### 2 4323-8 #### [facility] CLIA [id number] [address] ALT With P-5'-P [Catalytic activity/Vol] 20 U/L Normal 7-38 [facility] Comment on above: Order Comment: Speci men Type: BLOOD SPECIMEN Ordering Facility: [facility] Address: [address] [place] [address] Performed By: #### 2 4323-8 #### [facility] CLIA [id number] [address] Anion gap [Moles/Vol] 11 mmol/L Normal 8-15 [facility] Comment on above: Order Comment: Speci men Type: BLOOD SPECIMEN Ordering Facility: [facility] Address: [address] [place] [address] Performed By: #### 2 4323-8 #### [facility] CLIA [id number] [address] STATES OF [facility] AST With P-5'-P [Catalytic activity/Vol] 21 U/L Normal 13-35 [facility] Comment on above: Order Comment: Speci men Type: BLOOD SPECIMEN Ordering Facility: [facility] Address: [address] [place] [address] Performed By: #### 2 4323-8 #### [facility] CLIA [id number] [address] STATES OF [facility] Bilirubin [Mass/Vol] mg/dL Low 0.2-1.3 [facility] Comment on above: Order Comment: Speci men Type: BLOOD SPECIMEN Ordering Facility: [facility] Address: [address] [place] [address] Performed By: #### 2 4323-8 #### [facility] CLIA [id number] [address] Calcium [Mass/Vol] 8.6 mg/dL Normal 8.5-10.2 [facility] Comment on above: Order Comment: Speci men Type: BLOOD SPECIMEN Ordering Facility: [facility] Address: [address] [place] [address] Performed By: #### 2 4323-8 #### [facility] CLIA [id number] [address] [place] Chloride [Moles/Vol] 104 mmol/L Normal 98-107 [facility] Comment on above: Order Comment: Speci men Type: BLOOD SPECIMEN Ordering Facility: [facility] Address: [address] [place] [address] Performed By: #### 2 4323-8 #### [facility] CLIA [id number] [address] [place] CO2 [Moles/Vol] 22 mmol/L Normal 22-30 [facility] Comment on above: Order Comment: Speci men Type: BLOOD SPECIMEN Ordering Facility: [facility] Address: [address] [place] [address] Performed By: #### 2 4323-8 #### [facility] CLIA [id number] [address] Creatinine [Mass/Vol] 0.77 mg/dL Normal 0.58-0.96 [facility] Comment on above: Order Comment: Speci men Type: BLOOD SPECIMEN Ordering Facility: [facility] Address: [address] [place] [address] Performed By: #### 2 4323-8 #### [facility] CLIA [id number] [address] Creatinine and Glomerular filtration rate.predicted panel (S/P/Bld) 86 mL/min/1.73m??? Normal >=60 [facility] Comment on above: Order Comment: Speci men Type: BLOOD SPECIMEN Ordering Facility: [facility] Address: [address] [place] [address] Result Comment: Sonia mated Glomerular Filtration Rate [...] GFR. Performed By: #### 2 4323-8 #### [facility] CLIA [id number] [address] Glucose [Mass/Vol] 166 mg/dL High 74-99 [facility] Comment on above: Order Comment: Speci denys Type: BLOOD SPECIMEN Ordering Facility: [facility] Address: [address] [place] [address] Result Comment: The [place] Diabetes Association (ADA) provides guidance for cutoff [...] Standards of Medical Care in Diabetes 2016, [place] Diabetes Association. Diabetes Care. 2016.39(Suppl 1). Performed By: #### 2 4323-8 #### [facility] CLIA [id number] [address] [place] Potassium [Moles/Vol] 4.3 mmol/L Normal 3.7-5.1 [facility] Comment on above: Order Comment: Speci men Type: BLOOD SPECIMEN Ordering Facility: [facility] Address: [address] [place] [address] Performed By: #### 2 432-8 #### [facility] CLIA [id number] 1 [place] [address] [place] Protein [Mass/Vol] 6.1 g/dL Low 6.3-8.0 [facility] Comment on above: Order Comment: Speci men Type: BLOOD SPECIMEN Ordering Facility: [facility] Address: [address] [place] [address] Performed By: #### 2 4323-8 #### [facility] CLIA [id number] 1 [place] [address] [place] Sodium [Moles/Vol] 137 mmol/L Normal 136-144 [facility] Comment on above: Order Comment: Speci men Type: BLOOD SPECIMEN Ordering Facility: [facility] Address: [address] [place] [address] Performed By: #### 2 4323-8 #### [facility] CLIA [id number] 1 [place] [address] [place] Urea nitrogen [Mass/Vol] 12 mg/dL Normal 7-21 [facility] Comment on above: Order Comment: Speci men Type: BLOOD SPECIMEN Ordering Facility: [facility] Address: [facility] [place] [id number] Performed By: #### 2 4323-8 #### [facility] CLIA [id number] 1 [place] [address] [place] Gastroenterology Visit Repor ton 04-27-2024 Gastroenterology Visit Report [facility] Gastroenterology [address] [place] [address] OFFICE VISIT Date of Service: 04/27/24 MR#: [id number] Acct: [id number] Name: MARIMAR WANG Rep #: [id number] : 1960 Provider: Andrez Pitts DO Age/Sex: 64/F Location: [facility] Status: Signed Intake Vital Signs 12/13/23 16:46 [...] HEALTH 11/13/17 04/27/24 History extended release peg [id number]-uxfxqdu n 1 1 drp OP 4X/DAY DRY [...] 01/09/23 04/27/24 History gram/dose oral powder (Miralax) gsefnw-gzlkhzes-cileycp See Rx Instructions PO .COMPLEX 09/25/23 04/27/24 Rx 36,000-114,000-180,000 unit #300 caps capsule,delay rel (Creon) acetaminophen 500 mg tablet 1,000 mg PO Q6H PRN fever or pain 11/15/23 04/27/24 History atorvastatin 80 mg tablet 80 mg PO QDAY 11/15/23 04/27/24 History hydrocortisone 2.5 % topical cream 1 applic MT BID PRN Crohn's 11/29/23 04/27/24 Rx with [...] cataract Intermittent (more content not included)... Normal [facility] Abdomen Limitedon 03-25-2024 Abdomen Limited [facility] [address] [place] [address] Abdomen Limited MR#: [id number] Acct: [id number] Name: MARIMAR WANG Rep #: [id number] : 1960 F 63 From: Juan Antonio hernandez MD PCP: Julio Arriaga NP-C Status: REG CLI Study: Abdomen Limited Date of Exam: 03/25/24 Exam# [id number] Ordering Dr: Andrez Pitts DO [id number] STUDY: ABDOMINAL ULTRASOUND - RIGHT UPPER QUADRANT [...] , CC: SINAI Arriaga; Andrez Pitts DO Melt Supervisor: Signed Normal [facility] CBC W Auto Differential pane l (Bld)on 01-29-2024 Basophils (Bld) [#/Vol] 0.05 10*3/uL [facility] Basophils/100 WBC (Bld) 0.8 % [facility] Differential cell count method Nom (Bld) Auto [facility] Eosinophils (Bld) [#/Vol] 0.11 10*3/uL [facility] Eosinophils/100 WBC (Bld) 1.7 % [facility] Erythrocyte distribution width (RBC) [Ratio] 16.1 % High 11.5 - 15.0 % [facility] Hematocrit (Bld) [Volume fraction] 33.2 % Low 36.0 - 46.0 % [facility] Hemoglobin (Bld) [Mass/Vol] 10.2 g/dL Low 11.5 - 15.5 g/dL [facility] Immature granulocytes (Bld) [#/Vol] [facility] Immature granulocytes/100 WBC (Bld) 0.2 % [facility] Interpretation and review of laboratory results Abnormal [facility] Lymphocytes (Bld) [#/Vol] 0.95 10*3/uL Low [facility] Lymphocytes/100 WBC (Bld) 15.1 % [facility] MCH (RBC) [Entitic mass] 24.5 pg Low 26.0 - 34.0 pg [facility] MCHC (RBC) [Mass/Vol] 30.7 g/dL 30.5 - 36.0 g/dL [facility] MCV (RBC) [Entitic vol] 79.8 fL Low 80.0 - 100.0 fL [facility] Monocytes (Bld) [#/Vol] 0.59 10*3/uL [facility] Monocytes/100 WBC (Bld) 9.4 % [facility] Neutrophils (Bld) [#/Vol] 4.60 10*3/uL [facility] Neutrophils/100 WBC (Bld) 72.8 % [facility] Nucleated RBC (Bld) [#/Vol] [facility] Nucleated RBC/100 WBC (Bld) [Ratio] [facility] Platelet mean volume (Bld) [Entitic vol] 10.8 fL 9.0 - 12.7 fL [facility] Platelets (Bld) [#/Vol] 216 10*3/uL [facility] RBC (Bld) [#/Vol] 4.16 10*6/uL 3.90 - 5.2 0 m/uL [facility] WBC (Bld) [#/Vol] 6.31 10*3/uL [facility] Basophils (Bld) [#/Vol] 0.05 10*3/uL Normal <0.11 [facility] Comment on above: Order Comment: Speci men Type: BLOOD SPECIMEN Ordering Facility: [facility] Address: [address] [place] [address] Performed By: #### 5 7021-8 #### [facility] CLIA [id number] [address] [place] [address] [place] Basophils/100 WBC (Bld) 0.8 % Normal A [facility] Comment on above: Order Comment: Speci men Type: BLOOD SPECIMEN Ordering Facility: [facility] Address: [address] [place] [address] Performed By: #### 5 7021-8 #### [facility] CLIA [id number] [address] [place] [address] [place] Differential cell count method Nom (Bld) Auto Normal [facility] Comment on above: Order Comment: Speci men Type: BLOOD SPECIMEN Ordering Facility: [facility] Address: [address] [place] [address] Performed By: #### 5 7021-8 #### [facility] CLIA [id number] [address] [place] [address] [place] Eosinophils (Bld) [#/Vol] 0.11 10*3/uL Normal <0.46 [facility] Comment on above: Order Comment: Speci men Type: BLOOD SPECIMEN Ordering Facility: [facility] Address: [address] [place] [address] Performed By: #### 5 7021-8 #### [facility] CLIA [id number] [address] [place] [address] [place] Eosinophils/100 WBC (Bld) 1.7 % Normal [facility] Comment on above: Order Comment: Speci men Type: BLOOD SPECIMEN Ordering Facility: [facility] Address: [address] [place] [address] Performed By: #### 5 7021-8 #### [facility] CLIA [id number] [address] [place] [address] [place] Erythrocyte distribution width (RBC) [Ratio] 16.1 % High 11.5-15.0 [facility] Comment on above: Order Comment: Speci men Type: BLOOD SPECIMEN Ordering Facility: [facility] Address: [address] [place] [address] Performed By: #### 5 7021-8 #### [facility] CLIA [id number] [address] [place], [place] [address] [place] Hematocrit (Bld) [Volume fraction] 33.2 % Low 36.0-46.0 [facility] Comment on above: Order Comment: Speci men Type: BLOOD SPECIMEN Ordering Facility: [facility] Address: [facility] [place] [address] Performed By: #### 5 7021-8 #### [facility] CLIA [id number] [address] [place], [place] [address] [place] Hemoglobin (Bld) [Mass/Vol] 10.2 g/dL Low 11.5-15.5 [facility] Comment on above: Order Comment: Speci men Type: BLOOD SPECIMEN Ordering Facility: [facility] Address: [address] [place] [address] Performed By: #### 5 7021-8 #### [facility] CLIA [id number] [address] [place], [place] [address] [place] Immature granulocytes (Bld) [#/Vol] 10*3/uL Normal <0.10 [facility] Comment on above: Order Comment: Speci men Type: BLOOD SPECIMEN Ordering Facility: [facility] Address: [facility] [place] [address] Performed By: #### 5 7021-8 #### [facility] CLIA [id number] [address] [place], [place] [address] [place] Immature granulocytes/100 WBC (Bld) 0.2 % Normal [facility] Comment on above: Order Comment: Speci men Type: BLOOD SPECIMEN Ordering Facility: [facility] Address: [facility] [place] [address] Performed By: #### 5 7021-8 #### [facility] CLIA [id number] [address] [place] [address] [place] Lymphocytes (Bld) [#/Vol] 0.95 10*3/uL Low 1.00-4.00 [facility] Comment on above: Order Comment: Speci men Type: BLOOD SPECIMEN Ordering Facility: [facility] Address: [address] [place] [address] Performed By: #### 5 7021-8 #### [facility] CLIA [id number] [address] [place], [place] [address] [place] Lymphocytes/100 WBC (Bld) 15.1 % Normal [facility] Comment on above: Order Comment: Speci men Type: BLOOD SPECIMEN Ordering Facility: [facility] Address: [address] [place] [address] Performed By: #### 5 7021-8 #### [facility] CLIA [id number] [address] [place], [place] [address] [place] MCH (RBC) [Entitic mass] 24.5 pg Low 26.0-34.0 [facility] Comment on above: Order Comment: Speci men Type: BLOOD SPECIMEN Ordering Facility: [facility] Address: [address] [place] [address] Performed By: #### 5 7021-8 #### [facility] CLIA [id number] [address] [place] [address] [place] MCHC (RBC) [Mass/Vol] 30.7 g/dL Normal 30.5-36.0 [facility] Comment on above: Order Comment: Speci men Type: BLOOD SPECIMEN Ordering Facility: [facility] Address: [address] [place] [address] Performed By: #### 5 7021-8 #### [facility] CLIA [id number] [address] [place] [address] [place] MCV (RBC) [Entitic vol] 79.8 fL Low 80.0-100.0 [facility] Comment on above: Order Comment: Speci men Type: BLOOD SPECIMEN Ordering Facility: [facility] Address: [address] [place] [address] Performed By: #### 5 7021-8 #### [facility] CLIA [id number] [address] [place] [address] [place] Monocytes (Bld) [#/Vol] 0.59 10*3/uL Normal <0.87 [facility] Comment on above: Order Comment: Speci men Type: BLOOD SPECIMEN Ordering Facility: [facility] Address: [address] [place] [address] Performed By: #### 5 7021-8 #### [facility] CLIA [id number] [address] [place] [address] [place] Monocytes/100 WBC (Bld) 9.4 % Normal A [facility] Comment on above: Order Comment: Speci men Type: BLOOD SPECIMEN Ordering Facility: [facility] Address: [address] [place] [address] Performed By: #### 5 7021-8 #### [facility] CLIA [id number] [address] [place] [address] [place] Neutrophils (Bld) [#/Vol] 4.60 10*3/uL Normal 1.45-7.50 [facility] Comment on above: Order Comment: Speci men Type: BLOOD SPECIMEN Ordering Facility: [facility] Address: [address] [place] [address] Performed By: #### 5 7021-8 #### [facility] CLIA [id number] [address] [place], [place] [address] [place] Neutrophils/100 WBC (Bld) 72.8 % Normal [facility] Comment on above: Order Comment: Speci men Type: BLOOD SPECIMEN Ordering Facility: [facility] Address: [address] [place] [address] Performed By: #### 5 7021-8 #### [facility] CLIA [id number] [address] [place] [address] [place] Nucleated RBC (Bld) [#/Vol] Normal [facility] Comment on above: Order Comment: Speci men Type: BLOOD SPECIMEN Ordering Facility: [facility] Address: [address] [place] [address] Performed By: #### 5 7021-8 #### [facility] CLIA [id number] [address] [place] [address] [place] Nucleated RBC/100 WBC (Bld) [Ratio] Normal [facility] Comment on above: Order Comment: Speci men Type: BLOOD SPECIMEN Ordering Facility: [facility] Address: [address] [place] [address] Performed By: #### 5 7021-8 #### [facility] CLIA [id number] [address] [place] [address] [place] Platelet mean volume (Bld) [Entitic vol] 10.8 fL Normal 9.0-12.7 [facility] Comment on above: Order Comment: Speci men Type: BLOOD SPECIMEN Ordering Facility: [facility] Address: [address] [place] [address] Performed By: #### 5 7021-8 #### [facility] CLIA [id number] [address] [place] [address] [place] Platelets (Bld) [#/Vol] 216 10*3/uL Normal 150-400 [facility] Comment on above: Order Comment: Speci men Type: BLOOD SPECIMEN Ordering Facility: [facility] Address: [address] [place] [address] Performed By: #### 5 7021-8 #### [facility] CLIA [id number] [address] [place] [address] [place] RBC (Bld) [#/Vol] 4.16 10*6/uL Normal 3.90-5.20 [facility] Comment on above: Order Comment: Speci men Type: BLOOD SPECIMEN Ordering Facility: [facility] Address: [address] [place] [address] Performed By: #### 5 7021-8 #### [facility] CLIA [id number] [address] [place] [address] [place] WBC (Bld) [#/Vol] 6.31 10*3/uL Normal 3.70-11.00 [facility] Comment on above: Order Comment: Speci men Type: BLOOD SPECIMEN Ordering Facility: [facility] Address: [address] [place] [address] Performed By: #### 5 7021-8 #### [facility] CLIA [id number] [facility] [place] [address] [facility] [place] Comprehensive metabolic 2000 panelon 01-29-2024 Albumin [Mass/Vol] 3.7 g/dL Low 3.9 - 4.9 g/dL [facility] ALP [Catalytic activity/Vol] 92 U/L 34 - 123 U/L [facility] ALT With P-5'-P [Catalytic activity/Vol] 17 U/L 7 - 38 U/L [facility] Anion gap [Moles/Vol] 13 mmol/L 8 - 15 mmol/L [facility] AST With P-5'-P [Catalytic activity/Vol] 27 U/L 13 - 35 U/L [facility] Bilirubin [Mass/Vol] 0.2 mg/dL 0.2 - 1 .3 mg/dL [facility] Calcium [Mass/Vol] 9.0 mg/dL 8.5 - 10. 2 mg/dL [facility] Chloride [Moles/Vol] 103 mmol/L 98 - 10 7 mmol/L [facility] CO2 [Moles/Vol] 21 mmol/L Low 22 - 30 mmol/L [facility] Creatinine [Mass/Vol] 0.82 mg/dL 0.58 - 0.96 mg/dL [facility] GFR/1.73 sq M.predicted among non-blacks MDRD (S/P/Bld) [Vol rate/Area] 80 mL/min/{1.73_m2} - PINF [facility] Comment on above: Estimated Glomerular Filtration [...] [Mass/Vol] 97 mg/dL 74 - 99 mg/dL [facility] Comment on above: The [place] Diabete s Association (ADA) provides guidance for [...] Standards of Medical Care in Diabetes 2016, [place] Diabetes Association. Diabetes Care. 2016.39(Suppl 1). Interpretation and review of laboratory results Abnormal [facility] Potassium [Moles/Vol] 4.3 mmol/L 3.7 - 5.1 mmol/L [facility] Protein [Mass/Vol] 6.5 g/dL 6.3 - 8.0 g/dL [facility] Sodium [Moles/Vol] 137 mmol/L 136 - 144 mmol/L [facility] Urea nitrogen [Mass/Vol] 8 mg/dL 7 - 21 mg/dL [facility] Albumin [Mass/Vol] 3.7 g/dL Low 3.9-4.9 [facility] Comment on above: Order Comment: Mindy mcfarlane Type: BLOOD SPECIMEN Ordering Facility: [facility] Address: [address] [place] [address] Performed By: #### 2 4323-8 #### [facility] CLIA [id number] 1 [place] [address] [place] ALP [Catalytic activity/Vol] 92 U/L Normal 34-123 [facility] Comment on above: Order Comment: Mindy mcfarlane Type: BLOOD SPECIMEN Ordering Facility: [facility] Address: [address] [place] [address] Performed By: #### 2 4323-8 #### [facility] CLIA [id number] 1 [place] [address] [place] ALT With P-5'-P [Catalytic activity/Vol] 17 U/L Normal 7-38 [facility] Comment on above: Order Comment: Speci men Type: BLOOD SPECIMEN Ordering Facility: [facility] Address: [address] [place] [address] Performed By: #### 2 4323-8 #### [facility] CLIA [id number] [address] [place] Anion gap [Moles/Vol] 13 mmol/L Normal 8-15 [facility] Comment on above: Order Comment: Speci men Type: BLOOD SPECIMEN Ordering Facility: [facility] Address: [address] [place] [address] Performed By: #### 2 4323-8 #### [facility] CLIA [id number] [address] STATES OF [facility] AST With P-5'-P [Catalytic activity/Vol] 27 U/L Normal 13-35 [facility] Comment on above: Order Comment: Speci men Type: BLOOD SPECIMEN Ordering Facility: [facility] Address: [address] [place] [address] Performed By: #### 2 4323-8 #### [facility] CLIA [id number] [address] [place] Bilirubin [Mass/Vol] 0.2 mg/dL Normal 0.2-1.3 [facility] Comment on above: Order Comment: Speci men Type: BLOOD SPECIMEN Ordering Facility: [facility] Address: [address] [place] [address] Performed By: #### 2 4323-8 #### [facility] CLIA [id number] [address] [place] Calcium [Mass/Vol] 9.0 mg/dL Normal 8.5-10.2 [facility] Comment on above: Order Comment: Speci men Type: BLOOD SPECIMEN Ordering Facility: [facility] Address: [address] [place] [address] Performed By: #### 2 4323-8 #### [facility] CLIA [id number] [address] [place] Chloride [Moles/Vol] 103 mmol/L Normal 98-107 [facility] Comment on above: Order Comment: Speci men Type: BLOOD SPECIMEN Ordering Facility: [facility] Address: [address] [place] [address] Performed By: #### 2 4323-8 #### [facility] CLIA [id number] [address] [place] CO2 [Moles/Vol] 21 mmol/L Low 22-30 [facility] Comment on above: Order Comment: Speci men Type: BLOOD SPECIMEN Ordering Facility: [facility] Address: [address] [place] [address] Performed By: #### 2 4323-8 #### [facility] CLIA [id number] [address] OF [facility] Creatinine [Mass/Vol] 0.82 mg/dL Normal 0.58-0.96 [facility] Comment on above: Order Comment: Speci men Type: BLOOD SPECIMEN Ordering Facility: [facility] Address: [address] [place] [address] Performed By: #### 2 4323-8 #### [facility] CLIA [id number] [address] Creatinine and Glomerular filtration rate.predicted panel (S/P/Bld) 80 mL/min/1.73m??? Normal >=60 [facility] Comment on above: Order Comment: Speci men Type: BLOOD SPECIMEN Ordering Facility: [facility] Address: [address] [place] [address] Result Comment: Sonia mated Glomerular Filtration Rate [...] 2 4323-8 #### [facility] CLIA [id number] [address] [place] [address] [place] Glucose [Mass/Vol] 97 mg/dL Normal 74-99 [facility] Comment on above: Order Comment: Mindy mcfarlane Type: BLOOD SPECIMEN Ordering Facility: [facility] Address: [address] [place] [address] Result Comment: The [place] Diabetes Association (ADA) provides guidance for cutoff [...] Standards of Medical Care in Diabetes 2016, [place] Diabetes Association. Diabetes Care. 2016.39(Suppl 1). Performed By: #### 2 4323-8 #### [facility] CLIA [id number] [address] [place] [address] [place] Potassium [Moles/Vol] 4.3 mmol/L Normal 3.7-5.1 [facility] Comment on above: Order Comment: Mindy mcfarlane Type: BLOOD SPECIMEN Ordering Facility: [facility] Address: [address] [place] [address] Performed By: #### 2 4323-8 #### [facility] CLIA [id number] [address] [place] [address] [place] Protein [Mass/Vol] 6.5 g/dL Normal 6.3-8.0 [facility] Comment on above: Order Comment: Mindy mcfarlane Type: BLOOD SPECIMEN Ordering Facility: [facility] Address: [address] [place] [address] Performed By: #### 2 4323-8 #### [facility] CLIA [id number] [address] Sodium [Moles/Vol] 137 mmol/L Normal 136-144 [facility] Comment on above: Order Comment: Speci men Type: BLOOD SPECIMEN Ordering Facility: [facility] Address: [address] [place] [address] Performed By: #### 2 4323-8 #### [facility] CLIA [id number] [address] Urea nitrogen [Mass/Vol] 8 mg/dL Normal 7-21 [facility] Comment on above: Order Comment: Speci men Type: BLOOD SPECIMEN Ordering Facility: [facility] Address: [address] [place] [address] Performed By: #### 2 4323-8 #### [facility] CLIA [id number] [address] 12-31-2023 CNPN Telephone (RHBATH) -------- MARIMAR WANG ([id number]) 1960 F Date Time Provider Department 12/31/23 JENNIFER ARIAS [facility] During your visit today, we recorded [...] Fully Assessed Reason for Visit: Patient Question [5951] Visit Diagnoses:High risk medication use [Z79.899] Rheumatoid [...] 80 mg by mouth once daily. - dlaeul-nhrexlwq-cnaobyq (CREON 36) 36,000-114,000- 180,000 unit delayed release [...] Comments as of 02/06/2017: Herlinda use pharmacy [facility] [place] [place] [address] Problem List As Of Date 12/31/2023 Noted [...] [K90.9] 03/18/2015 (more content not included)... Normal [facility] [facility] PULMONARY FUNCTION STUDYon 0 12-04-2023 PULMONARY FUNCTION STUDY [facility] PULMONARY FUNCTION TEST NAME ACCOUNT SEX AGE VISIT DATE ROOM PT MEDICAL REC. # NUMBER TYPE MARIMAR WANG [id number] F 63 10/16/2023 2 L [id number] DATE OF : 1960 DICTATING PHYSICIAN: Ernesto [...] Ernesto Carrillo MD 10/24/23 16:59 JOB #: [id number] Transcribed By: am 10/25/23 07:34 Electronically signed by: Mik Carrillo M.D. 12/04/23 14:22 MARIMAR WANG Page 1 of 1 Normal [facility] 25-hydroxyvitamin D3 [Mass/V ol]on 11-20-2023 Interpretation and review of laboratory results Normal [facility] C-REACTIVE PROTEINon 024 CRP [Mass/Vol] mg/dL [facility] mg/dL [facility] CBC W Auto Differential pane l (Bld)on 11-20-2023 Basophils (Bld) [#/Vol] 0.05 10*3/uL [facility] Basophils/100 WBC (Bld) 0.7 % [facility] Differential cell count method Nom (Bld) Auto [facility] Eosinophils (Bld) [#/Vol] 0.12 10*3/uL [facility] Eosinophils/100 WBC (Bld) 1.7 % [facility] Erythrocyte distribution width (RBC) [Ratio] 14.3 % 11.5 - 15.0 % [facility] Hematocrit (Bld) [Volume fraction] 34.3 % Low 36.0 - 46.0 % [facility] Hemoglobin (Bld) [Mass/Vol] 10.6 g/dL Low 11.5 - 15.5 g/dL [facility] Immature granulocytes (Bld) [#/Vol] [facility] Immature granulocytes/100 WBC (Bld) 0.1 % [facility] Interpretation and review of laboratory results Abnormal [facility] Lymphocytes (Bld) [#/Vol] 1.62 10*3/uL [facility] Lymphocytes/100 WBC (Bld) 23.3 % [facility] MCH (RBC) [Entitic mass] 26.0 pg 26.0 - 34.0 pg [facility] MCHC (RBC) [Mass/Vol] 30.9 g/dL 30.5 - 36.0 g/dL [facility] MCV (RBC) [Entitic vol] 84.3 fL 80.0 - 100.0 fL [facility] Monocytes (Bld) [#/Vol] 0.52 10*3/uL [facility] Monocytes/100 WBC (Bld) 7.5 % [facility] Neutrophils (Bld) [#/Vol] 4.63 10*3/uL [facility] Neutrophils/100 WBC (Bld) 66.7 % [facility] Nucleated RBC (Bld) [#/Vol] [facility] Nucleated RBC/100 WBC (Bld) [Ratio] [facility] Platelet mean volume (Bld) [Entitic vol] 11.1 fL 9.0 - 12.7 fL [facility] Platelets (Bld) [#/Vol] 244 10*3/uL [facility] RBC (Bld) [#/Vol] 4.07 10*6/uL 3.90 - 5.2 0 m/uL [facility] WBC (Bld) [#/Vol] 6.95 10*3/uL [facility] CRP [Mass/Vol]on 11-20-2023 Interpretation and review of laboratory results Normal [facility] Comprehensive metabolic 2000 panelon 11-20-2023 Albumin [Mass/Vol] 4.0 g/dL 3.9 - 4.9 g/dL [facility] ALP [Catalytic activity/Vol] 95 U/L 34 - 123 U/L [facility] ALT With P-5'-P [Catalytic activity/Vol] 12 U/L 7 - 38 U/L [facility] Anion gap [Moles/Vol] 11 mmol/L 9 - 18 mmol/L [facility] AST With P-5'-P [Catalytic activity/Vol] 20 U/L 13 - 35 U/L [facility] Bilirubin [Mass/Vol] 0.2 mg/dL 0.2 - 1 .3 mg/dL [facility] Calcium [Mass/Vol] 8.9 mg/dL 8.5 - 10. 2 mg/dL [facility] Chloride [Moles/Vol] 103 mmol/L 97 - 10 5 mmol/L [facility] CO2 [Moles/Vol] 23 mmol/L 22 - 30 mmol/L [facility] Creatinine [Mass/Vol] 0.70 mg/dL 0.58 - 0.96 mg/dL [facility] GFR/1.73 sq M.predicted among non-blacks MDRD (S/P/Bld) [Vol rate/Area] 97 mL/min/{1.73_m2} - PINF [facility] Comment on above: Estimated Glomerular Filtration [...] 119 mg/dL High 74 - 99 mg/dL [facility] Comment on above: The [place] Diab[employer] s Association (ADA) provides guidance for [...] Standards of Medical Care in Diabetes 2016, [place] [employer]. Diabetes Care. 2016.39(Suppl 1). Interpretation and review of laboratory results Abnormal [facility] Potassium [Moles/Vol] 3.6 mmol/L Low 3.7 - 5.1 mmol/L [facility] Protein [Mass/Vol] 6.7 g/dL 6.3 - 8.0 g/dL [facility] Sodium [Moles/Vol] 137 mmol/L 136 - 144 mmol/L [facility] Urea nitrogen [Mass/Vol] 9 mg/dL 7 - 21 mg/dL [facility] ESR Westergren method (Bld) [Velocity]on 11-20-2023 ESR (Bld) [Velocity] 20 mm/h [facility] Interpretation and review of laboratory results Normal [facility] No Panel Informationon 11-19 [facility] VITAMIN D 25 HYDROXYon 11-19 25-hydroxyvitamin D3 [Mass/Vol] 62.6 ng/mL 30.0 - PINF ng/mL [facility] Comment on above: Classification of 25 [place] Vitamin D status: Deficiency: <= 20.0 ng/ml. Insufficiency: 21.0-29.0 ng/ml. Sufficiency: >= 30.0 ng/ml. CMP with eGFRon 09-26-2023 /SGPT 17 Normal [facility] Comment on above: Performed By: #### 2 [id number] #### [place] [id number] AGE 63 years Normal [facility] Comment on above: Performed By: #### 2 51060 #### [address] [address] Albumin [Mass/Vol] 3.0 g/dL Low 3.4 - 5.0 [facility] Comment on above: Performed By: #### 2 99576 #### [place] [id number] Albumin/Globulin [Mass ratio] 0.8 {ratio} Low 0.9 - 1.6 [facility] Comment on above: Performed By: #### 2 84949 #### [facility] [place],[address] [place], [place] [id number] ALK PHOS 81 U/L Normal 46 - 116 [facility] Comment on above: Performed By: #### 2 11074 #### [facility] [place],[address] [place] [address] Anion gap [Moles/Vol] 9 mmol/L Low 10 - 20 [facility] Comment on above: Performed By: #### 2 44634 #### [facility] [place],[address] [place] [address] AST [Catalytic activity/Vol] 20 U/L Normal 13 - 39 [facility] [place] Comment on above: Performed By: #### 2 62238 #### [facility] [place],[address] [place] [address] B/C RATIO 16 ratio Normal 0 - 30 [facility] Comment on above: Performed By: #### 2 62165 #### [facility] [place],[address] [place] [address] Bilirubin [Mass/Vol] 0.3 mg/dL Normal 0.2 - 1.0 [facility] Comment on above: Performed By: #### 2 16404 #### [facility] [place],[address] [place], [place] [id number] Calcium [Mass/Vol] 9.0 mg/dL Normal 8.5 - 10.1 [facility] Comment on above: Performed By: #### 2 71174 #### [facility] [place],[address] [place], [place] [id number] Chloride [Moles/Vol] 106 mmol/L Normal 98 - 107 [facility] Comment on above: Performed By: #### 2 38249 #### [facility] [place],[address] [place], [place] [id number] CMP with eGFR Normal [facility] Comment on above: Result Comment: COMP REHENSIVE METABOLIC PANEL Performed By: #### 2 19660 #### [facility] [place],[address] [place], [place] [id number] CO2 [Moles/Vol] 27.4 mmol/L Normal 21.0 - 32.0 [facility] Comment on above: Performed By: #### 2 87582 #### [facility] [place],[address] [place] [address] Creatinine [Mass/Vol] 0.82 mg/dL Normal 0.55 - 1.02 [facility] Comment on above: Performed By: #### 2 58239 #### [facility] [place],[address] [place] [address] GFR/1.73 sq M.predicted among non-blacks MDRD (S/P/Bld) [Vol rate/Area] mL/min/{1.73_m2} Normal 60 - 999 [facility] Comment on above: Performed By: #### 2 10245 #### [facility] [place],[address] [place] [address] Result Comment: ACCO RDING TO THE NATIONAL KIDNEY DISEASE EDUCATION PROGRAM(NKDE), A NORMAL eGFR IS A VALUE GREATER THAN OR EQUAL TO 60 ML/MIN/1.73 SQ METERS. CHRONIC KIDNEY DISEASE: <60mL/MIN/1.73 SQ METERS KIDNEY FAILURE: <15mL/MIN/1.73 SQ METERS THIS TEST SHOULD ONLY BE USED FOR PATIENTS 18 YEARS OF AGE AND OLDER. Globulin (S) [Mass/Vol] 3.8 g/dL Normal 1.5 - 3.8 [facility] Comment on above: Performed By: #### 2 20338 #### [facility] [place],[address] [place], [place] [id number] Glucose [Mass/Vol] 103 mg/dL Normal 74 - 106 [facility] Comment on above: Performed By: #### 2 16412 #### [facility] [place],[address] [place] [address] Potassium [Moles/Vol] 4.1 mmol/L Normal 3.5 - 5.1 [facility] Comment on above: Performed By: #### 2 78189 #### [facility] [place],[address] [place] [address] Protein [Mass/Vol] 6.8 g/dL Normal 6.4 - 8.2 [facility] Comment on above: Performed By: #### 2 44314 #### [facility] [place],[address] [place], [place] [id number] Sodium [Moles/Vol] 138 mmol/L Normal 136 - 145 [facility] Comment on above: Performed By: #### 2 78132 #### [facility] [place],[address] [place] [address] Urea nitrogen [Mass/Vol] 13 mg/dL Normal 7 - 18 [facility] Comment on above: Performed By: #### 2 68594 #### [facility] [place],[address] [place], [place] [id number] HEMOGLOBIN A1C (POM)on Glucose [Mass/Vol] 111.2 mg/dL High 0.0 - 0.0 [facility] Comment on above: Result Comment: BLDo HEMOGLOBIN A1C REFERENCE RANGESBLDo Suggested Diagnosis HbA1c(%) HbA1C (mmol/mol Diabetic >/=6.5 >/=48 Prediabetes 5.7 - 6.4 39 - 47 Normal <5.7 <39 Performed By: #### 2 53435 #### [facility] [place],[address] [place], [place] [id number] HbA1c (Bld) [Mass fraction] 5.5 % Normal 0.0 - 6.5 [facility] Comment on above: Performed By: #### 2 18805 #### [facility] [place],[address] [place], [place] [id number] LIPID PROFILEon 09-26-2023 Cholesterol [Mass/Vol] 213 mg/dL Normal 0 - 240 [facility] Comment on above: Performed By: #### 2 29414 #### [facility] [place],[address] [place] [address] Cholesterol in HDL [Mass/Vol] 83 mg/dL High 40 - 60 [facility] Comment on above: Performed By: #### 2 83179 #### [facility] [place],[address] [place] [address] Cholesterol in LDL [Mass/Vol] 119 mg/dL Normal 0 - 129 [facility] Comment on above: Performed By: #### 2 07918 #### [facility] [place],[address] [place] [address] Cholesterol.total/Wendy sterol in HDL [Mass ratio] 2.6 {ratio} Normal 0.0 - 5.0 [facility] Comment on above: Performed By: #### 2 02678 #### [facility] [place],[address] [place] [address] Lipid 1996 panel Normal [facility] Comment on above: Result Comment: LIPI D PROFILE Performed By: #### 2 85091 #### [facility] [place],[address] [place] [address] Triglyceride [Mass/Vol] 57 mg/dL Normal 0 - 150 [facility] Comment on above: Performed By: #### 2 95488 #### [facility] [place],[address] [place] [address] MAGNESIUMon 09-26-2023 Magnesium [Mass/Vol] 2.1 mg/dL Normal 1.8 - 2.4 [facility] Comment on above: Performed By: #### 2 75618 #### [facility] [place],[address] [place] [address] NT-proBNPon 09-19-2023 Natriuretic peptide B (Bld) [Mass/Vol] 511 pg/mL High 0 - 125 [facility] Comment on above: Performed By: #### 2 40246 #### [facility] [place],[address] [place] [address] Giardia lamblia ag stool EIA Ordered By: Andrez Pitts on 09-06-2023 G. lamblia Ag IA Ql (Stl) Negative Negative [facility] Comment on above: Performed at: BN - [facility] [address] [id number] Director: Beverley Cleveland MD, Phone: [phone] at: [facility] [id number] [place], [place] [id number] Director: Emmanuel Osorio PhD, Phone: [phone] No Panel InformationOrdered By: Andrez Pitts on 09-06-2023 Miscellaneous Test See comment [facility] Comment on above: TEST RESULTS LIMITSA [id number], Fecal, Qn A, 0.173 mg/g 0.041-0.336 CommentsA: Results of this test are labeled for research purposes only by the assay's neck band setter. The performance characteristics of this assay have not been established by the neck band setter. The result should not be used for treatment or for diagnostic purposes without confirmation of the diagnosis by anothermedically established diagnostic product or procedure. The performance characteristics were determined by [employer]. TESTING PERFORMED AT [facility]. ORIGINAL REPORT ON FILE IN LAB CONTAINS ADDITIONAL TEST SITE INFORMATION. Stool Calprotectin 81 ug/g 0-120 [facility] Comment on above: Concentration Interp retation Follow-Up< 5 - 50 ug/g Normal None>50 -120 ug/g Borderline Re-evaluate in 4-6 weeks >120 ug/g Abnormal Repeat as clinically indicatedPerformed at: - [facility] [address] [id number] Director: Beverley Cleveland MD, Phone: [phone] Ova and parasitesOrdered By: Andrez Pitts on 09-06-2023 Ova and parasites identified LM Nom (Unsp spec) [facility] Stool pancreatic elastase me asurement (mass/mass)Ordered By: Andrez Pitts on 09-06-2023 Elastase.pancreatic (Stl) [Mass/Mass] 76 >200 [facility] Comment on above: Result Units: ug Christina st./gResults verified by repeat testing Severe Pancreatic Insufficiency: <100 Moderate Pancreatic Insufficiency: 100 - 200 Normal: >200 Basophil percentageOrdered B y: Andrez Pitts on 07-25-2023 Basophil percentage < 1.0 mg/dL 0.55-1.02 [facility] No Panel InformationOrdered By: Andrez Pitts on 07-25-2023 Bedside Estimated GFR (eGFR) > 60.0000 mL/min >60 [facility] Chocolate RASTOrdered By: Ra ny Pitts on 07-05-2023 Chocolate IgE Qn (S) <0.10 kU/L Class 0 [facility] Hemoglobin in reticulocytes (mass per reticulocyte)Ordered By: Andrez Pitts on 07-05-2023 Hemoglobin (Reticulocytes) [Entitic mass] 31.7 pg 30-35 [facility] Iron measurement (mass/mass) Ordered By: Andrez Pitts on 07-05-2023 Iron (Unsp spec) [Mass/Mass] 46 ug/dL 50-170 [facility] Laboratory - Miscellaneous t estsOrdered By: Andrez Pitts on 07-05-2023 Service comment (Unsp spec) [Interp] Comment . [facility] Comment on above: Levels of Specific [...] 07-05-2023 Hepatitis A IgM Antibody Negative Negative [facility] Hepatitis B Core IgM Antibody Negative Negative [facility] Hepatitis C Antibody (EIA) Non-Reactive Non Reactive [facility] Hepatitis C Antibody Comment Comment . [facility] Comment on above: Not infected with HC V unless early or acute infection issuspected (which may be delayed in an immunocompromisedindividual), or other evidence exists to indicate HCVinfection. Immature Reticulocyte Fraction 11.20 % 3.00-15.90 [facility] Immunoglobulin E 10 IU/mL 6-495 [facility] Comment on above: Performed at: [address] [id number] Director: Emmanuel Osorio PhD, Phone: [phone] at: [facility] [id number] Director: Beverley Cleveland MD, Phone: [phone] Mussel Allergen IgE Antibody <0.10 kU/L Class 0 [facility] Reticulocyte Count 1.61 % 0.5-1.5 [facility] Shrimp Allergen <0.10 kU/L Class 0 [facility] Total Iron Binding Capacity 311 ug/dL 250-450 [facility] Qualitative QuantiFERON-TB g old in tube testOrdered By: Andrez Pitts on 07-05-2023 M. tuberculosis tuberculin stim IFN-g Ql (Bld) See comment [facility] Comment on above: TEST RESULTS LIMITSQ [...] interferon gamma.Chemiluminescence immunoassay methodology TESTING PERFORMED AT [facility]. ORIGINAL REPORT ON FILE IN LAB [...] interferon gamma.Chemiluminescence immunoassay methodology TESTING PERFORMED AT [facility]. ORIGINAL REPORT ON FILE IN LAB CONTAINS ADDITIONAL TEST SITE INFORMATION. Serum beef IgE antibody assa y (units/volume)Ordered By: Andrez Pitts on 07-05-2023 Beef IgE Qn (S) <0.10 kU/L Class 0 [facility] Serum codfish IgE antibody a ssay (units/volume)Ordered By: Andrez Pitts on 07-05-2023 Codfish IgE Qn (S) <0.10 kU/L Class 0 [facility] Serum corn IgE antibody assa y (units/volume)Ordered By: Andrez Pitts on 07-05-2023 [place] IgE Qn (S) <0.10 kU/L Class 0 [facility] Serum cow milk IgE antibody assay (units/volume)Ordered By: Andrez Pitts on 07-05-2023 Cow milk IgE Qn (S) <0.10 kU/L Class 0 [facility] Serum or plasma C reactive p rotein measurement (mass/volume)Ordered By: Andrez Pitts on 07-05-2023 CRP [Mass/Vol] mg/L 0.0-3.0 [facility] Comment on above: C-Reactive Protein ( CRP) provides useful information for thediagnosis, therapy and monitoring of inflammatory processesand associated diseases. For the evaluation of Relative Riskfor Cardiovascular Disease, a High Sensitivity CRP (HSCRP)should be ordered. Serum or plasma IgA measurem ent (mass/volume)Ordered By: Andrez Pitts on 07-05-2023 IgA [Mass/Vol] 106 mg/dL 87-352 [facility] Serum or plasma IgG measurem ent (mass/volume)Ordered By: nAdrez Pitts on 07-05-2023 IgG [Mass/Vol] 967 mg/dL [phone] [facility] Serum or plasma IgM measurem ent (mass/volume)Ordered By: Andrez Pitts on 07-05-2023 IgM [Mass/Vol] 54 mg/dL 26-217 [facility] Serum or plasma ferritin anastacio surement (mass/volume)Ordered By: Andrez Pitts on 07-05-2023 Ferritin [Mass/Vol] 63 ng/mL 8-252 [facility] Serum or plasma hepatitis B virus surface antigen detection by immunoassayOrdered By: Andrez Pitts on 07-05-2023 HBV surface Ag IA Ql Negative Negative [facility] Serum or plasma iron saturat ion measurement (mass fraction)Ordered By: Andrez Pitts on 07-05-2023 Iron saturation [Mass fraction] 14.8 % 15.0-55.0 [facility] Serum peanut IgE antibody as say (units/volume)Ordered By: Andrez Pitts on 07-05-2023 Peanut IgE Qn (S) <0.10 kU/L Class 0 [facility] Serum pork IgE antibody assa y (units/volume)Ordered By: Andrez Pitts on 07-05-2023 Pork IgE Qn (S) <0.10 kU/L Class 0 [facility] Serum salmon IgE antibody as say (units/volume)Ordered By: Andrez Pitts on 07-05-2023 [place] IgE Qn (S) <0.10 kU/L Class 0 [facility] Serum soybean IgE antibody a ssay (units/volume)Ordered By: Andrez Pitts on 07-05-2023 Soybean IgE Qn (S) <0.10 kU/L Class 0 [facility] Serum tuna IgE antibody assa y (units/volume)Ordered By: Andrez Pitts on 07-05-2023 Tuna IgE Qn (S) <0.10 kU/L Class 0 [facility] Serum wheat IgE antibody ass ay (units/volume)Ordered By: Andrez Pitts on 07-05-2023 Wheat IgE Qn (S) <0.10 kU/L Class 0 [facility] Serum whole egg IgE antibody assay (units/volume)Ordered By: Andrez Pitts on 07-05-2023 Whole Egg IgE Qn (S) <0.10 kU/L Class 0 [facility] Comment on above: Performed at: [address] [id number] Director: Beverley [place] MD, Phone: [phone] Thin prep Papanicolaou smear with manual screeningOrdered By: Andrez Pitts on 07-05-2023 Thin prep Papanicolaou smear with manual screening Not Reportable [facility] C-REACTIVE PROTEIN (CRP)on 0 04-25-2023 CRP [Mass/Vol] 0.4 mg/dL <0.9 mg/dL [facility] CBC panel Auto (Bld)on 04-25 Erythrocyte distribution width (RBC) [Ratio] 14.0 % 11.5 - 15.0 % [facility] Hematocrit (Bld) [Volume fraction] 38.4 % 36.0 - 46.0 % [facility] Hemoglobin (Bld) [Mass/Vol] 12.0 g/dL 11.5 - 15.5 g/dL [facility] MCH (RBC) [Entitic mass] 27.1 pg 26.0 - 34.0 pg [facility] MCHC (RBC) [Mass/Vol] 31.3 g/dL 30.5 - 36.0 g/dL [facility] MCV (RBC) [Entitic vol] 86.7 fL 80.0 - 100.0 fL [facility] Nucleated RBC (Bld) [#/Vol] <0.01 k/uL [facility] Platelet mean volume (Bld) [Entitic vol] 12.3 fL 9.0 - 12.7 fL [facility] Platelets (Bld) [#/Vol] 263 10*3/uL 150 - 400 k/uL [facility] RBC (Bld) [#/Vol] 4.43 10*6/uL 3.90 - 5.2 0 m/uL [facility] WBC (Bld) [#/Vol] 6.72 10*3/uL 3.70 - 11. 00 k/uL [facility] CREATININE BLDon 04-25-2023 Creatinine [Mass/Vol] 0.80 mg/dL 0.60 - 1.30 mg/dL [facility] Estimated Glomerular Filtration Rate 82 mL/min/1.73m >=60 mL/min/1.73m [facility] [facility] 2000 panelon 04-25-2023 Albumin [Mass/Vol] 4.0 g/dL 3.9 - 4.9 g/dL [facility] ALP [Catalytic activity/Vol] 94 U/L 34 - 123 U/L [facility] ALT With P-5'-P [Catalytic activity/Vol] 9 U/L 7 - 38 U/L [facility] Anion gap [Moles/Vol] 13 mmol/L 9 - 18 mmol/L [facility] AST With P-5'-P [Catalytic activity/Vol] 17 U/L 13 - 35 U/L [facility] Bilirubin [Mass/Vol] 0.2 mg/dL 0.2 - 1 .3 mg/dL [facility] Calcium [Mass/Vol] 9.2 mg/dL 8.5 - 10. 2 mg/dL [facility] Chloride [Moles/Vol] 104 mmol/L 97 - 10 5 mmol/L [facility] CO2 [Moles/Vol] 21 mmol/L Low 22 - 30 mmol/L [facility] Creatinine [Mass/Vol] 0.80 mg/dL 0.58 - 0.96 mg/dL [facility] Estimated Glomerular Filtration Rate 82 mL/min/1.73m >=60 mL/min/1.73m [facility] Glucose [Mass/Vol] 159 mg/dL High 74 - 99 mg/dL [facility] Potassium [Moles/Vol] 4.1 mmol/L 3.7 - 5.1 mmol/L [facility] Protein [Mass/Vol] 6.2 g/dL Low 6.3 - 8.0 g/dL [facility] Sodium [Moles/Vol] 138 mmol/L 136 - 144 mmol/L [facility] Urea nitrogen [Mass/Vol] 9 mg/dL 7 - 21 mg/dL [facility] ESR Westergren method (Bld) [Velocity]on 04-25-2023 ESR (Bld) [Velocity] 26 mm/h High 0 - 20 mm/hr [facility] HBV surface Ab Ql (S)on 03-30 HBV surface Ab Qn (S) [facility] HEP B SURF ABon 04-25-2023 HBV surface Ab Ql (S) Negative [facility] HEP B SURF AG SCRNon 023 HBV surface Ag Ql (S) Non-Reactive Nonreactive [facility] HEPATITIS C ANTIBODY IA WITH CONFIRMATIONon 04-25-2023 HCV Ab Ql (S) Non-Reactive Nonreactive [facility] VITAMIN D 25 HYDROXYon 04-25 25-hydroxyvitamin D3 [Mass/Vol] 89.2 ng/mL >=30.0 ng/mL [facility] Basophil percentageOrdered B y: Michael Rawls on 01-24-2023 Chloride [Moles/Vol] 109 mmol/L 98-107 [facility] Glucose [Mass/Vol] 138 mg/dL 74-106 [facility] Comment on above: Fasting Glucose resu lt greater than or equal to 126 mg/dL suggests DIABETES MELLITUS per A.D.A. criteria. Potassium [Moles/Vol] 4.3 mmol/L 3.5-5.1 [facility] Sodium [Moles/Vol] 135 mmol/L 136-145 [facility] WBC (Bld) [#/Vol] 11.2 10*3/uL 4.4-11.0 [facility] Blood erythrocytes count (nu mber/volume)Ordered By: Michael Rawls on 01-24-2023 RBC (Bld) [#/Vol] 3.40 10*6/uL 4.2-5.4 [facility] Blood hemoglobin measurement (mass/volume)Ordered By: Michael Rawls on 01-24-2023 Hemoglobin (Bld) [Mass/Vol] 9.5 g/dL 12.0-15.0 [facility] Blood platelet mean volumeOr dered By: Michael Rawls on 01-24-2023 Platelet mean volume (Bld) [Entitic vol] 11.4 fL 6.2-12.0 [facility] Determination of erythrocyte mean corpuscular volume (MCV)Ordered By: Michael Rawls on 06-29-2023 MCV (RBC) [Entitic vol] 90.0 fL 81-99 [facility] Hematocrit Auto (Bld) [Volum e fraction]Ordered By: Michael Rawls on 01-24-2023 Hematocrit (Bld) [Volume fraction] 30.6 % 37-47 [facility] Laboratory - Chemistry and C hemistry - challengeOrdered By: Michael Rawls on 01-24-2023 CO2 [Moles/Vol] 23.0 mmol/L 21.0-32.0 [facility] Urea nitrogen/Creatinine [Mass ratio] 12.1 mg/mg 10-20 [facility] Laboratory - Hematology and Cell countsOrdered By: Michael Rawls on 01-24-2023 Erythrocyte distribution width (RBC) [Entitic vol] 41.4 fL 35.1-43.9 [facility] Erythrocyte distribution width (RBC) [Ratio] 12.6 % 11.6-14.6 [facility] MCH (RBC) [Entitic mass] 27.9 pg 27.0-32.0 [facility] MCHC Auto (RBC) [Mass/Vol]Or dered By: Michael Rawls on 01-24-2023 MCHC (RBC) [Mass/Vol] 31.0 g/dL 32-36 [facility] No Panel InformationOrdered By: Michael Rawls on 01-24-2023 Estimated Creatinine Clearance Calc 61.54 ml/min [facility] Estimated GFR (MDRD) Amer 101 mL/min >60 [facility] Comment on above: GFR Calc Estimated GFR (MDRD) Non-Af Amer 84 mL/min >60 [facility] Comment on above: Non- GFR Calc Platelets bldOrdered By: Jef Rawls on 01-24-2023 Platelets (Bld) [#/Vol] 199 10*3/uL 150-450 [facility] Serum or plasma calcium alexis urement (mass/volume)Ordered By: Michael Rawls on 01-24-2023 Calcium [Mass/Vol] 7.8 mg/dL 8.5-10.1 [facility] Serum or plasma creatinine m easurement (mass/volume)Ordered By: Michael Rawls on 01-24-2023 Creatinine [Mass/Vol] 0.74 mg/dL 0.55-1.02 [facility] Comment on above: The validity of the calculated GFR & GFRAA in patients over 70 years has not been determined. Clinical correlation is essential. Serum or plasma urea nitroge n measurement (mass/volume)Ordered By: Michael Rawls on 01-24-2023 Urea nitrogen [Mass/Vol] 9 mg/dL 7-18 [facility] Thin prep Papanicolaou smear with manual screeningOrdered By: Michael Rawls on 01-24-2023 Thin prep Papanicolaou smear with manual screening 3 5-15 [facility] INR in Blood by Coagulation assayOrdered By: Michael Rawls on 01-11-2023 INR Coag (Bld) [Relative time] 1.1 {INR} [facility] Laboratory - Chemistry and C hemistry - challengeOrdered By: Stas Young on 01-11-2023 Magnesium [Mass/Vol] 1.9 mg/dL 1.6-2.6 [facility] Laboratory - CoagulationOrde red By: Michael Rawls on 01-11-2023 aPTT Coag (Bld) [Time] 31.4 s 24.1-36.2 [facility] PT Coag (PPP) [Time] 14.0 s 11.7-14.9 [facility] No Panel InformationOrdered By: Michael Rawls on 01-11-2023 Fructosamine 241 umol/L 0-285 [facility] Comment on above: Published reference interval for apparently healthysubjects between age 20 and 60 is 205 - 285 umol/L and in apoorly controlled diabetic population is 228 - 563 umol/Lwith a mean of 396 umol/L.Performed at: [place] [facility] [address] [id number] Director: Emmanuel Osorio PhD, Phone: [phone] Nasal Screen MRSA/MSSA [facility] Whole blood hemoglobin A1c/t otal hemoglobin ratio (mass fraction)Ordered By: Michael Rawls on 01-11-2023 HbA1c (Bld) [Mass fraction] 5.4 % 3.8-5.6 [facility] Comment on above: Normal < 5.7 % Predi abetic 5.7 - 6.4 % Diabetic >or= 6.5 % Please note range changes. No Panel InformationOrdered By: Jaci Warren on 12-05-2022 Stool Calprotectin 57 ug/g 0-120 [facility] Comment on above: Concentration Interp retation Follow-Up<16 - 50 ug/g Normal None>50 -120 ug/g Borderline Re-evaluate in 4-6 weeks >120 ug/g Abnormal Repeat as clinically indicatedPerformed at: [facility] [address] [id number] Director: Beverley Cleveland MD, Phone: [phone] Stool lactoferrin detection by immunoassayOrdered By: Jaci Warren on 12-05-2022 Lactoferrin IA Ql (Stl) [facility] CBC W Auto Differential pane l (Bld)on 10-18-2022 Basophils (Bld) [#/Vol] 0.08 10*3/uL <0.11 k/uL [facility] Basophils/100 WBC (Bld) 1.3 % [facility] Differential cell count method Nom (Bld) Auto [facility] Eosinophils (Bld) [#/Vol] 0.19 10*3/uL <0.46 k/uL [facility] Eosinophils/100 WBC (Bld) 3.2 % [facility] Erythrocyte distribution width (RBC) [Ratio] 13.5 % 11.5 - 15.0 % [facility] Hematocrit (Bld) [Volume fraction] 40.3 % 36.0 - 46.0 % [facility] Hemoglobin (Bld) [Mass/Vol] 12.5 g/dL 11.5 - 15.5 g/dL [facility] Immature granulocytes (Bld) [#/Vol] <0.10 k/uL [facility] Immature granulocytes/100 WBC (Bld) 0.3 % [facility] Lymphocytes (Bld) [#/Vol] 1.57 10*3/uL 1.00 - 4.00 k/uL [facility] Lymphocytes/100 WBC (Bld) 26.3 % [facility] MCH (RBC) [Entitic mass] 28.1 pg 26.0 - 34.0 pg [facility] MCHC (RBC) [Mass/Vol] 31.0 g/dL 30.5 - 36.0 g/dL [facility] MCV (RBC) [Entitic vol] 90.6 fL 80.0 - 100.0 fL [facility] Monocytes (Bld) [#/Vol] 0.55 10*3/uL <0.87 k/uL [facility] Monocytes/100 WBC (Bld) 9.2 % [facility] Neutrophils (Bld) [#/Vol] 3.55 10*3/uL 1.45 - 7.50 k/uL [facility] Neutrophils/100 WBC (Bld) 59.7 % [facility] Nucleated RBC (Bld) [#/Vol] <0.01 k/uL [facility] Nucleated RBC/100 WBC (Bld) [Ratio] 0.0 /100 WBC [facility] Platelet mean volume (Bld) [Entitic vol] 12.0 fL 9.0 - 12.7 fL [facility] Platelets (Bld) [#/Vol] 233 10*3/uL 150 - 400 k/uL [facility] RBC (Bld) [#/Vol] 4.45 10*6/uL 3.90 - 5.2 0 m/uL [facility] WBC (Bld) [#/Vol] 5.96 10*3/uL 3.70 - 11. 00 k/uL [facility] Absolute lymphocyte countOrd ered By: Jaci Warren on 09-19-2022 Lymphocytes Auto (Unsp spec) [#/Vol] 1.24 10*3/uL 0.83-4.51 [facility] Albumin Elph [Mass/Vol]Order ed By: Jaci Warren on 09-19-2022 Albumin [Mass/Vol] 3.5 g/dL 2.9-4.4 [facility] Atypical perinuclear antineu trophil cytoplasmic antibodies measurementOrdered By: Jaci Warren on 09-19-2022 Neutrophil cytoplasmic Ab.perinuclear.atypical IF (S) [Titer] <1:20 titer Neg:<1:20 [facility] Comment on above: The atypical pANCA p attern has been observed in asignificant percentage of patients with ulcerative colitis,primary sclerosing cholangitis and autoimmune hepatitis.Performed at: - [address] [id number] Director: Emmanuel Osorio PhD, Phone: [phone] at: [place] - [facility] [address] [id number] Director: Beverley Cleveland MD, Phone: [phone] Basophil percentageOrdered B y: Jaci Warren on 09-19-2022 Basophil percentage < 0.2 AI 0.0-0.9 [facility] Basophils/100 WBC (Bld) 0.9 % 0-1 [facility] Bilirubin [Mass/Vol] 0.60 mg/dL 0.20-1.00 [facility] Comment on above: For patients on eltr ombopag therapy, use of Dimension [place] TBIL is not recommended. Chloride [Moles/Vol] 105 mmol/L 98-107 [facility] Eosinophils/100 WBC (Bld) 2.2 % 0-5 [facility] Glucose [Mass/Vol] 99 mg/dL 74-106 [facility] LDH [Catalytic activity/Vol] 227 U/L 84-246 [facility] Neutrophils (Bld) [#/Vol] 4.5 10*3/uL 2.0-7.7 [facility] Neutrophils/100 WBC (Bld) 69.9 % 47-70 [facility] Potassium [Moles/Vol] 4.0 mmol/L 3.5-5.1 [facility] Protein [Mass/Vol] 7.4 g/dL 6.4-8.2 [facility] Sodium [Moles/Vol] 136 mmol/L 136-145 [facility] WBC (Bld) [#/Vol] 6.5 10*3/uL 4.4-11.0 [facility] Blood erythrocytes count (nu mber/volume)Ordered By: Jaci Warren on 09-19-2022 RBC (Bld) [#/Vol] 4.72 10*6/uL 4.2-5.4 [facility] Blood hemoglobin measurement (mass/volume)Ordered By: Jaci Warren on 09-19-2022 Hemoglobin (Bld) [Mass/Vol] 13.2 g/dL 12.0-15.0 [facility] Blood lymphocytes/100 leukoc ytesOrdered By: Jaci Warren on 09-19-2022 Lymphocytes/100 WBC (Bld) 19.1 % 19-41 [facility] Blood monocytes/100 leukocyt esOrdered By: Jaci Warren on 09-19-2022 Monocytes/100 WBC (Bld) 7.4 % 0-10 [facility] Blood platelet mean volumeOr dered By: Jaci Warren on 09-19-2022 Platelet mean volume (Bld) [Entitic vol] 11.9 fL 6.2-12.0 [facility] Determination of erythrocyte mean corpuscular volume (MCV)Ordered By: Jaci Warren on 09-19-2022 MCV (RBC) [Entitic vol] 90.5 fL 81-99 [facility] Erythrocyte sedimentation ra teOrdered By: Jaci Warren on 09-19-2022 ESR (Bld) [Velocity] 29 mm/h 0-30 [facility] Hematocrit Auto (Bld) [Volum e fraction]Ordered By: Jaci Warren on 09-19-2022 Hematocrit (Bld) [Volume fraction] 42.7 % 37-47 [facility] Interpretation of serum or p lasma protein pattern by immunofixation (narrative resultOrdered By: Jaci Warren on 09-19-2022 Protein Fractions Immunofixation Yair [Interp] See comment [facility] Comment on above: noT oBSERVED Laboratory - Chemistry and C hemistry - challengeOrdered By: Jaci Warren on 09-19-2022 ALP [Catalytic activity/Vol] 99 U/L 45-117 [facility] ALT [Catalytic activity/Vol] 16 U/L 13-56 [facility] CO2 [Moles/Vol] 22.0 mmol/L 21.0-32.0 [facility] Urea nitrogen/Creatinine [Mass ratio] 13.4 mg/mg 10-20 [facility] Laboratory - Hematology and Cell countsOrdered By: Jaci Warren on 09-19-2022 Erythrocyte distribution width (RBC) [Entitic vol] 45.1 fL 35.1-43.9 [facility] Erythrocyte distribution width (RBC) [Ratio] 13.5 % 11.6-14.6 [facility] Immature granulocytes/100 WBC (Bld) 0.500 % 0.0-0.9 [facility] Comment on above: IG% - Immature Granu locytes (promyelocytes, myelocytes and metamyelocytes) > 1% indicates that a LEFT SHIFT is Present. MCH (RBC) [Entitic mass] 28.0 pg 27.0-32.0 [facility] Nucleated RBC/100 WBC (Bld) [Ratio] 0 % 0-5 [facility] MCHC Auto (RBC) [Mass/Vol]Or dered By: Jaci Warren on 09-19-2022 MCHC (RBC) [Mass/Vol] 30.9 g/dL 32-36 [facility] No Panel InformationOrdered By: Jaci Warren on 09-19-2022 Addendum Document Comment . [facility] Comment on above: Protein electrophore sis scan will follow via computer,mail, or certified flex endoscope reprocessor delivery. Centromere B Antibody <0.2 AI 0.0-0.9 [facility] Endomysial IgA Antibody Negative Negative [facility] Estimated GFR (MDRD) Amer 101 mL/min >60 [facility] Comment on above: GFR Calc Estimated GFR (MDRD) Non-Af Amer 83 mL/min >60 [facility] Comment on above: Non- GFR Calc Immunoglobulin E 11 IU/mL 6-495 [facility] Miscellaneous Test See comment [facility] Comment on above: TEST RESULT LIMITSIB [...] developed and its performance characteristics determined by [facility]. It has not been cleared or approved by the Food and Drug Administration. The FDA has determined that such clearance or approval is not necessary.Atypical pANCA Negative Negative Comments Abnormal Suggestive of Crohn's Disease with the very high risk of aggressive disease behavior(development of strictures or fistulae) ____ [facility] ORIGINAL REPORT ON FILE IN LAB CONTAINS ADDITIONAL TEST SITE INFORMATION. AUDIO INSTALLER Antibody 0.3 AI 0.0-0.9 [facility] Platelets bldOrdered By: Daija Warren on 09-19-2022 Platelets (Bld) [#/Vol] 264 10*3/uL 150-450 [facility] Serum DNA double strand anti body assay (units/volume)Ordered By: Jaci Warren on 09-19-2022 DNA double strand Ab Qn (S) [IU]/mL 0-9 [facility] Comment on above: Negative <5 Equivoca l 5 - 9 Positive >9 Serum Claudine-1 antibody assay (u nits/volume)Ordered By: Jaci Warren on 09-19-2022 Claudine-1 extractable nuclear Ab Qn (S) <0.2 AI 0.0-0.9 [facility] Serum Scl-70 extractable nuc lear antibody assay (units/volume)Ordered By: Jaci Warren on 09-19-2022 SCL-70 extractable nuclear Ab Qn (S) <0.2 AI 0.0-0.9 [facility] Serum Valero extractable nucl ear antibody detectionOrdered By: Jaci Warren on 09-19-2022 Valero extractable nuclear Ab Ql (S) <0.2 AI 0.0-0.9 [facility] Serum [id number] measu rement by electrophoresisOrdered By: Jaci Warren on 09-19-2022 Alpha 1 globulin Elph [Mass/Vol] 0.3 g/dL 0.0-0.4 [facility] Alpha 1 globulin Elph [Mass/Vol] 0.9 g/dL 0.4-1.0 [facility] Serum classic neutrophil cyt oplasmic antibody assay (units/volume)Ordered By: Jaci Warren on 09-19-2022 Neutrophil cytoplasmic Ab.classic Qn (S) <1:20 titer Neg:<1:20 [facility] Serum globulin measurement ( mass/volume)Ordered By: Jaci Warren on 09-19-2022 Globulin (S) [Mass/Vol] 3.0 g/dL 2.2-3.9 [facility] Serum or plasma C reactive p rotein measurement (mass/volume)Ordered By: Jaci Warren on 09-19-2022 CRP [Mass/Vol] 5.02 mg/L 0.0-3.0 [facility] Comment on above: C-Reactive Protein ( CRP) provides useful information for thediagnosis, therapy and monitoring of inflammatory processesand associated diseases. For the evaluation of Relative Riskfor Cardiovascular Disease, a High Sensitivity CRP (HSCRP)should be ordered. Serum or plasma IgA measurem ent (mass/volume)Ordered By: Jaci Warren on 09-19-2022 IgA [Mass/Vol] 103 mg/dL 87-352 [facility] Serum or plasma IgG measurem ent (mass/volume)Ordered By: Jaci Warren on 09-19-2022 IgG [Mass/Vol] 916 mg/dL [phone] [facility] Serum or plasma IgM measurem ent (mass/volume)Ordered By: Jaci Warren on 09-19-2022 IgM [Mass/Vol] 48 mg/dL 26-217 [facility] Serum or plasma albumin alexis urement (mass/volume)Ordered By: Jaci Warren on 09-19-2022 Albumin [Mass/Vol] 3.7 g/dL 3.2-5.0 [facility] Serum or plasma albumin/glob ulin mass ratioOrdered By: Jaci Warren on 09-19-2022 Albumin/Globulin [Mass ratio] 1.0 {ratio} 0.9-2.4 [facility] Serum or plasma beta globuli n measurement by electrophoresis (mass/volume)Ordered By: Jaci Warren on 09-19-2022 Beta globulin Elph [Mass/Vol] 0.9 g/dL 0.7-1.3 [facility] Serum or plasma calcium alexis urement (mass/volume)Ordered By: Jaci Warren on 09-19-2022 Calcium [Mass/Vol] 9.3 mg/dL 8.5-10.1 [facility] Serum or plasma creatinine m easurement (mass/volume)Ordered By: Jaci Warren on 09-19-2022 Creatinine [Mass/Vol] 0.75 mg/dL 0.55-1.02 [facility] Comment on above: The validity of the calculated GFR & GFRAA in patients over 70 years has not been determined. Clinical correlation is essential. Serum or plasma gamma globul in measurement by electrophoresis (mass/volume)Ordered By: Jaci Warren on 09-19-2022 Gamma globulin Elph [Mass/Vol] 0.8 g/dL 0.4-1.8 [facility] Serum or plasma immunoelectr ophoresis interpretation (nominal result)Ordered By: Jaci Warren on 09-19-2022 Interpretation IEP [Interp] Comment . [facility] Comment on above: No monoclonality det ected. Serum or plasma urea nitroge n measurement (mass/volume)Ordered By: Jaci Warren on 09-19-2022 Urea nitrogen [Mass/Vol] 10 mg/dL 7-18 [facility] Serum perinuclear neutrophil cytoplasmic antibody titer by immunofluorescenceOrdered By: Jaci Warren on 09-19-2022 Neutrophil cytoplasmic Ab.perinuclear IF (S) [Titer] <1:20 titer Neg:<1:20 [facility] Comment on above: The presence of posi tive fluorescence exhibiting P-ANCA orC-ANCA patterns alone is not specific for the diagnosis ofWegener's Granulomatosis (WG) or microscopic polyangiitis.Decisions about treatment should not be based solely onANCA IFA results. The [employer] ANCA Group Consensusrecommends follow up testing of positive sera with both MT-3 and MPO-ANCA enzyme immunoassays. As many as 5% serumsamples are positive only by EIA. Ref. AM J Clin [id number];111:507-513. Serum tissue transglutaminas e IgA antibody assay (units/volume)Ordered By: Jaci Warren on 09-19-2022 tTG IgA Qn (S) <2 U/mL 0-3 [facility] Comment on above: Negative 0 - 3 Weak Positive 4 - 10 Positive >10 Tissue Transglutaminase (tTG) has been identified as the endomysial antigen. Studies have demonstr- ated that endomysial IgA antibodies have over 99% specificity for gluten sensitive enteropathy. Thin prep Papanicolaou smear with manual screeningOrdered By: Jaci Warren on 09-19-2022 Thin prep Papanicolaou smear with manual screening 21 U/L 15-37 [facility] Thin prep Papanicolaou smear with manual screening 9 5-15 [facility] Thin prep Papanicolaou smear with manual screening 1.2 0.7-1.7 [facility] Total protein bloodOrdered B y: Jacierika Warren on 09-19-2022 Protein [Mass/Vol] 6.5 g/dL 6.0-8.5 [facility] Laboratory - Microbiology an d Antimicrobial susceptibilityon 09-12-2022 S. pyogenes Ag IA Ql (Unsp spec) Negative [facility] C-REACTIVE PROTEIN (CRP)on 1 09-17-2021 CRP [Mass/Vol] 0.6 mg/dL <0.9 mg/dL [facility] CBC W Auto Differential pane l (Bld)on 07-17-2022 Basophils (Bld) [#/Vol] 0.08 10*3/uL <0.11 k/uL [facility] Basophils/100 WBC (Bld) 1.3 % [facility] Differential cell count method Nom (Bld) Auto [facility] Eosinophils (Bld) [#/Vol] 0.18 10*3/uL <0.46 k/uL [facility] Eosinophils/100 WBC (Bld) 2.9 % [facility] Erythrocyte distribution width (RBC) [Ratio] 16.4 % High 11.5 - 15.0 % [facility] Hematocrit (Bld) [Volume fraction] 41.4 % 36.0 - 46.0 % [facility] Hemoglobin (Bld) [Mass/Vol] 13.0 g/dL 11.5 - 15.5 g/dL [facility] Immature granulocytes (Bld) [#/Vol] 0.03 10*3/uL <0.10 k/uL [facility] Immature granulocytes/100 WBC (Bld) 0.5 % [facility] Lymphocytes (Bld) [#/Vol] 1.35 10*3/uL 1.00 - 4.00 k/uL [facility] Lymphocytes/100 WBC (Bld) 21.8 % [facility] MCH (RBC) [Entitic mass] 27.1 pg 26.0 - 34.0 pg [facility] MCHC (RBC) [Mass/Vol] 31.4 g/dL 30.5 - 36.0 g/dL [facility] MCV (RBC) [Entitic vol] 86.4 fL 80.0 - 100.0 fL [facility] Monocytes (Bld) [#/Vol] 0.52 10*3/uL <0.87 k/uL [facility] Monocytes/100 WBC (Bld) 8.4 % [facility] Neutrophils (Bld) [#/Vol] 4.03 10*3/uL 1.45 - 7.50 k/uL [facility] Neutrophils/100 WBC (Bld) 65.1 % [facility] Nucleated RBC (Bld) [#/Vol] <0.01 k/uL [facility] Nucleated RBC/100 WBC (Bld) [Ratio] 0.0 /100 WBC [facility] Platelet mean volume (Bld) [Entitic vol] 11.7 fL 9.0 - 12.7 fL [facility] Platelets (Bld) [#/Vol] 238 10*3/uL 150 - 400 k/uL [facility] RBC (Bld) [#/Vol] 4.79 10*6/uL 3.90 - 5.2 0 m/uL [facility] WBC (Bld) [#/Vol] 6.19 10*3/uL 3.70 - 11. 00 k/uL [facility] Comprehensive metabolic 2000 panelon 07-17-2022 Albumin [Mass/Vol] 4.4 g/dL 3.9 - 4.9 g/dL [facility] ALP [Catalytic activity/Vol] 97 U/L 34 - 123 U/L [facility] ALT With P-5'-P [Catalytic activity/Vol] 13 U/L 7 - 38 U/L [facility] Anion gap [Moles/Vol] 12 mmol/L 9 - 18 mmol/L [facility] AST With P-5'-P [Catalytic activity/Vol] 23 U/L 13 - 35 U/L [facility] Bilirubin [Mass/Vol] 0.2 mg/dL 0.2 - 1 .3 mg/dL [facility] Calcium [Mass/Vol] 9.5 mg/dL 8.5 - 10. 2 mg/dL [facility] Chloride [Moles/Vol] 100 mmol/L 97 - 10 5 mmol/L [facility] CO2 [Moles/Vol] 25 mmol/L 22 - 30 mmol/L [facility] Creatinine [Mass/Vol] 0.67 mg/dL 0.58 - 0.96 mg/dL [facility] Estimated Glomerular Filtration Rate 98 mL/min/1.73m >=60 mL/min/1.73m [facility] Glucose [Mass/Vol] 83 mg/dL 74 - 99 mg/dL [facility] Potassium [Moles/Vol] 4.1 mmol/L 3.7 - 5.1 mmol/L [facility] Protein [Mass/Vol] 7.2 g/dL 6.3 - 8.0 g/dL [facility] Sodium [Moles/Vol] 137 mmol/L 136 - 144 mmol/L [facility] Urea nitrogen [Mass/Vol] 8 mg/dL 7 - 21 mg/dL [facility] Laboratory - Microbiology an d Antimicrobial susceptibilityon 07-13-2022 SARS-CoV-2 (COVID-19) RNA CORAL+probe Ql (Unsp spec) Not detected [facility] No Panel Informationon 07-13 Influenza Types A,B Rapid ([facility]) Not detected [facility] DXA-AXIAL SKELETONon 022 [facility] .Auto Diffon 04-04-2022 Basophil, Absolute 0.1 10 3/mcL Normal 0.0-0.2 [facility] ([place] Comment on above: Performed By: #### B MP, ANEU, GFR, ADIFF, CBC #### [address] [address] Basophils/100 WBC (Bld) 1.4 % Normal 0.0-2.5 [facility] ([place]) Comment on above: Performed By: #### B MP, ANEU, GFR, ADIFF, CBC #### [address] [address] Eosinophil, Absolute 0.2 10 3/mcL Normal 0.0-0.4 Replaced by [facility] ([place]) Comment on above: Performed By: #### B MP, ANEU, GFR, ADIFF, CBC #### [address] [address] Eosinophils/100 WBC (Bld) 3.7 % Normal 0.0-7.0 [facility] ([place]) Comment on above: Performed By: #### B MP, ANEU, GFR, ADIFF, CBC #### [address] [address] Lymphocyte, Absolute 0.9 10 3/mcL Normal 0.8-3.9 Replaced by [facility] ([place]) Comment on above: Performed By: #### B MP, ANEU, GFR, ADIFF, CBC #### [address] [address] Lymphocytes/100 WBC (Bld) 13.7 % Normal 10.0-50.0 [facility] ([place]) Comment on above: Performed By: #### B MP, ANEU, GFR, ADIFF, CBC #### [address] [address] Monocyte, Absolute 0.6 10 3/mcL Normal 0.2-1.0 [facility] ([place]) Comment on above: Performed By: #### B MP, ANEU, GFR, ADIFF, CBC #### [address] [address] Monocytes/100 WBC (Bld) 10.2 % Normal 1.7-13.0 [facility] ([place]) Comment on above: Performed By: #### B MP, ANEU, GFR, ADIFF, CBC #### [address] [address] Neutrophils/100 WBC (Bld) 71.0 % Normal 37.0-80.0 [facility] ([place]) Comment on above: Performed By: #### B MP, ANEU, GFR, ADIFF, CBC #### [address] [address] .NEUABSon 04-04-2022 Neutrophil, Absolute 4.5 10 3/mcL Normal 2.9-6.2 Replaced by [facility] ([place]) Comment on above: Performed By: #### B MP, ANEU, GFR, ADIFF, CBC #### [address] [address] CBCon 04-04-2022 Erythrocyte distribution width (RBC) [Ratio] 15.2 % High 11.5-14.5 [facility] ([place]) Comment on above: Performed By: #### B MP, ANEU, GFR, ADIFF, CBC #### [place] [address] Hematocrit (Bld) [Volume fraction] 40.3 % Normal 37.0-47.0 [facility] ([place]) Comment on above: Performed By: #### B MP, ANEU, GFR, ADIFF, CBC #### [place] [address] Hgb 13.5 G/dL Normal 12.0-16.0 [facility] ([place]) Comment on above: Performed By: #### B MP, ANEU, GFR, ADIFF, CBC #### [place] [address] MCH (RBC) [Entitic mass] 27.5 pg Normal 27.0-31.2 [facility] ([place]) Comment on above: Performed By: #### B MP, ANEU, GFR, ADIFF, CBC #### [place] [address] MCHC 33.5 G/dL Normal 33.0-37.0 [facility] ([place]) Comment on above: Performed By: #### B MP, ANEU, GFR, ADIFF, CBC #### [place] [address] MCV (RBC) [Entitic vol] 82.1 fL Normal 80.0-94.0 [facility] ([place]) Comment on above: Performed By: #### B MP, ANEU, GFR, ADIFF, CBC #### [place] [address] Platelet 192 10 3/mcL Normal 130-400 [facility] ([place]) Comment on above: Performed By: #### B MP, ANEU, GFR, ADIFF, CBC #### [place] [address] Platelet mean volume (Bld) [Entitic vol] 9.7 fL Normal 7.4-10.4 [facility] ([place]) Comment on above: Performed By: #### B MP, ANEU, GFR, ADIFF, CBC #### [place] [address] RBC 4.91 10 6/mcL Normal 4.20-5.40 [facility] ([place]) Comment on above: Performed By: #### B MP, ANEU, GFR, ADIFF, CBC #### [place] [address] WBC 6.3 10 3/mcL Normal 4.6-10.8 [facility] ([place]) Comment on above: Performed By: #### B MP, ANEU, GFR, ADIFF, CBC #### [place] [address] CRPon 04-04-2022 CRP [Mass/Vol] mg/L Normal 0.0-0.9 [facility] ([place]) Comment on above: Performed By: #### B MP, ANEU, GFR, ADIFF, CBC #### [place] [address] ESRon 04-04-2022 Erythrocyte Sed Rate 19 mm/hr Normal 0-30 [facility] ([place]) Comment on above: Performed By: #### B MP, ANEU, GFR, ADIFF, CBC #### [place] [address] NM BONE IMAGING WHOLE BODYon 03-29-2022 NM [...] Sign Date: 03/29/2022 3:10:43 PM [facility] BONE IMAGING WHOLE BODYon 03-20-2022 [place] BONE IMAGING WHOLE BODY ORIGINAL EXAMINATION: WHOLE [...] 03/20/2022 6:05:15 PM Ordering Provider: BELLA Prabhakar [facility] ([place]) C-REACTIVE PROTEIN (CRP)on 0 03-05-2022 CRP [Mass/Vol] 0.3 mg/dL <0.9 mg/dL [facility] CBC W Auto Differential pane l (Bld)on 03-05-2022 Abs Immature Gran <0.10 k/uL [facility] Basophils (Bld) [#/Vol] 0.11 10*3/uL High <0.11 k/uL [facility] Basophils/100 WBC (Bld) 1.8 % [facility] Differential cell count method Nom (Bld) Auto [facility] Eosinophils (Bld) [#/Vol] 0.30 10*3/uL <0.46 k/uL [facility] Eosinophils/100 WBC (Bld) 4.8 % [facility] Erythrocyte distribution width (RBC) [Ratio] 15.2 % High 11.5 - 15.0 % [facility] Hematocrit (Bld) [Volume fraction] 40.0 % 36.0 - 46.0 % [facility] Hemoglobin (Bld) [Mass/Vol] 12.4 g/dL 11.5 - 15.5 g/dL [facility] Immature Gran % 0.3 % [facility] Lymphocytes (Bld) [#/Vol] 1.39 10*3/uL 1.00 - 4.00 k/uL [facility] Lymphocytes/100 WBC (Bld) 22.2 % [facility] MCH (RBC) [Entitic mass] 26.7 pg 26.0 - 34.0 pg [facility] MCHC (RBC) [Mass/Vol] 31.0 g/dL 30.5 - 36.0 g/dL [facility] MCV (RBC) [Entitic vol] 86.2 fL 80.0 - 100.0 fL [facility] Monocytes (Bld) [#/Vol] 0.55 10*3/uL <0.87 k/uL [facility] Monocytes/100 WBC (Bld) 8.8 % [facility] Neutrophils (Bld) [#/Vol] 3.88 10*3/uL 1.45 - 7.50 k/uL [facility] Neutrophils/100 WBC (Bld) 62.1 % [facility] Nucleated RBC (Bld) [#/Vol] <0.01 k/uL [facility] Nucleated RBC/100 WBC (Bld) [Ratio] 0.0 /100 WBC [facility] Platelet mean volume (Bld) [Entitic vol] 11.9 fL 9.0 - 12.7 fL [facility] Platelets (Bld) [#/Vol] 205 10*3/uL 150 - 400 k/uL [facility] RBC (Bld) [#/Vol] 4.64 10*6/uL 3.90 - 5.2 0 m/uL [facility] WBC (Bld) [#/Vol] 6.25 10*3/uL 3.70 - 11. 00 k/uL [facility] Comprehensive metabolic 2000 panelon 03-05-2022 Albumin [Mass/Vol] 4.2 g/dL 3.9 - 4.9 g/dL [facility] ALP [Catalytic activity/Vol] 98 U/L 34 - 123 U/L [facility] ALT With P-5'-P [Catalytic activity/Vol] 12 U/L 7 - 38 U/L [facility] Anion gap [Moles/Vol] 10 mmol/L 9 - 18 mmol/L [facility] AST With P-5'-P [Catalytic activity/Vol] 22 U/L 13 - 35 U/L [facility] Bilirubin [Mass/Vol] 0.2 mg/dL 0.2 - 1 .3 mg/dL [facility] Calcium [Mass/Vol] 8.8 mg/dL 8.5 - 10. 2 mg/dL [facility] Chloride [Moles/Vol] 105 mmol/L 97 - 10 5 mmol/L [facility] CO2 [Moles/Vol] 23 mmol/L 22 - 30 mmol/L [facility] Creatinine [Mass/Vol] 0.66 mg/dL 0.58 - 0.96 mg/dL [facility] Estimated Glomerular Filtration Rate 99 mL/min/1.73m >=60 mL/min/1.73m [facility] Glucose [Mass/Vol] 88 mg/dL 74 - 99 mg/dL [facility] Potassium [Moles/Vol] 3.8 mmol/L 3.7 - 5.1 mmol/L [facility] Protein [Mass/Vol] 6.7 g/dL 6.3 - 8.0 g/dL [facility] Sodium [Moles/Vol] 138 mmol/L 136 - 144 mmol/L [facility] Urea nitrogen [Mass/Vol] 9 mg/dL 7 - 21 mg/dL [facility] Final Surgical Pathology Rep natalio 09-01-2021 Final Surgical Pathology Report . Pathology Reports Accession: Collected Date/Time: Received Date/Time: Pathologist: [id number] 08/29/2021 16:24 EST 08/30/2021 07:37 EST DO [...] Electronically Signed by Pathology Report verified by [facility] Electronically signed by JOAN BONILLA DO Sign out Date: 09/01/2021 08:04 Performing Lab: [id number] [place] [address] Normal [facility] ([place]) .Auto Diffon 08-31-2021 Basophil, Absolute 0.10 10 3/mcL Normal 0.00-0.27 [facility] ([place]) Comment on above: Performed By: #### B MP, ANEU, GFR, ADIFF, CBC #### [address] [address] Basophils/100 WBC (Bld) 0.7 % Normal 0.0-2.5 [facility] ([place]) Comment on above: Performed By: #### B MP, ANEU, GFR, ADIFF, CBC #### [address] [address] Eosinophil, Absolute 0.10 10 3/mcL Normal 0.00-0.65 [facility] ([place]) Comment on above: Performed By: #### B MP, ANEU, GFR, ADIFF, CBC #### [address] [address] Eosinophils/100 WBC (Bld) 1.2 % Normal 0.0-6.0 [facility] ([place]) Comment on above: Performed By: #### B MP, ANEU, GFR, ADIFF, CBC #### [address] [address] Lymphocyte, Absolute 0.80 10 3/mcL Low 0.90-4.32 [facility] ([place]) Comment on above: Performed By: #### B MP, ANEU, GFR, ADIFF, CBC #### [address] [address] Lymphocytes/100 WBC (Bld) 8.5 % Low 20.0-40.0 [facility] ([place]) Comment on above: Performed By: #### B MP, ANEU, GFR, ADIFF, CBC #### [address] [address] Monocyte, Absolute 1.00 10 3/mcL Normal 0.09-1.40 [facility] ([place]) Comment on above: Performed By: #### B MP, ANEU, GFR, ADIFF, CBC #### [address] [address] Monocytes/100 WBC (Bld) 10.3 % Normal 2.0-13.0 [facility] ([place]) Comment on above: Performed By: #### B MP, ANEU, GFR, ADIFF, CBC #### [address] [address] Neutrophils/100 WBC (Bld) 79.3 % High 50.0-75.0 [facility] ([place]) Comment on above: Performed By: #### B MP, ANEU, GFR, ADIFF, CBC #### [address] [address] .GFRon 08-31-2021 GFR >60 Normal [facility] ([place]) Comment on above: Result Comment: GFR Population [...] MP, ANEU, GFR, ADIFF, CBC #### [address] [address] GFR Non- >60 Normal [facility] ([place]) Comment on above: Result Comment: GFR Population [...] MP, ANEU, GFR, ADIFF, CBC #### [address] [address] .NEUABSon 08-31-2021 Neutrophil, Absolute 7.40 10 3/mcL Normal 2.25-8.10 [facility] ([place]) Comment on above: Performed By: #### B MP, ANEU, GFR, ADIFF, CBC #### [address] [address] BMPon 08-31-2021 BUN/Creatinine Ratio 18.4 ratio Normal 10.0-22.0 [facility] ([place]) Comment on above: Performed By: #### B MP, ANEU, GFR, ADIFF, CBC #### [address] [address] Calcium [Mass/Vol] 9.2 mg/dL Normal 8.7-10.4 [facility] ([place]) Comment on above: Result Comment: No te - New Reference Range in effect 20 Performed By: #### B MP, ANEU, GFR, ADIFF, CBC #### [address] [address] Chloride [Moles/Vol] 106 mmol/L Normal 98-110 [facility] ([place]) Comment on above: Performed By: #### B MP, ANEU, GFR, ADIFF, CBC #### [address] [address] CO2 [Moles/Vol] 24 mmol/L Normal 22-32 [facility] ([place]) Comment on above: Performed By: #### B MP, ANEU, GFR, ADIFF, CBC #### [place] [id number] Creatinine [Mass/Vol] 0.76 mg/dL Normal 0.50-1.20 [facility] ([place]) Comment on above: Performed By: #### B MP, ANEU, GFR, ADIFF, CBC #### [address] [address] Electrolyte Balance 4.0 mEq/L Normal 4.0-15.0 [facility] ([place]) Comment on above: Performed By: #### B MP, ANEU, GFR, ADIFF, CBC #### [address] [address] Glucose [Mass/Vol] 123 mg/dL High 82-115 [facility] ([place]) Comment on above: Performed By: #### B MP, ANEU, GFR, ADIFF, CBC #### [address] [address] Potassium [Moles/Vol] 4.0 mmol/L Normal 3.5-5.0 [facility] ([place]) Comment on above: Result Comment: Spec imen slightly hemolyzed. Performed By: #### B MP, ANEU, GFR, ADIFF, CBC #### [place] [address] Sodium [Moles/Vol] 134 mmol/L Low 136-145 [facility] ([place] Comment on above: Performed By: #### B MP, ANEU, GFR, ADIFF, CBC #### [place] [address] Urea nitrogen [Mass/Vol] 14.0 mg/dL Normal 8.0-22.0 [facility] ([place]) Comment on above: Performed By: #### B MP, ANEU, GFR, ADIFF, CBC #### [place] [address] CBCon 08-31-2021 Erythrocyte distribution width (RBC) [Ratio] 14.2 % Normal 11.5-15.5 [facility] ([place]) Comment on above: Performed By: #### B MP, ANEU, GFR, ADIFF, CBC #### [place] [address] Hematocrit (Bld) [Volume fraction] 32.4 % Low 34.0-46.0 [facility] ([place]) Comment on above: Performed By: #### B MP, ANEU, GFR, ADIFF, CBC #### [place] [address] Hgb 10.7 G/dL Low 12.0-16.0 [facility] ([place]) Comment on above: Performed By: #### B MP, ANEU, GFR, ADIFF, CBC #### [place] [address] MCH (RBC) [Entitic mass] 28.0 pg Normal 27.0-33.0 [facility] ([place]) Comment on above: Performed By: #### B MP, ANEU, GFR, ADIFF, CBC #### [place] [address] MCHC 33.1 G/dL Normal 32.0-36.0 [facility] ([place]) Comment on above: Performed By: #### B MP, ANEU, GFR, ADIFF, CBC #### [place] [address] MCV (RBC) [Entitic vol] 84.6 fL Normal 80.0-99.0 [facility] ([place]) Comment on above: Performed By: #### B MP, ANEU, GFR, ADIFF, CBC #### [place] [address] Platelet 170 10 3/mcL Normal 150-450 [facility] ([place]) Comment on above: Performed By: #### B MP, ANEU, GFR, ADIFF, CBC #### [place] [address] Platelet mean volume (Bld) [Entitic vol] 9.5 fL Normal 6.6-10.5 [facility] ([place]) Comment on above: Performed By: #### B MP, ANEU, GFR, ADIFF, CBC #### [place] [address] RBC 3.83 10 6/mcL Low 4.10-5.30 [facility] ([place]) Comment on above: Performed By: #### B MP, ANEU, GFR, ADIFF, CBC #### [place] [address] WBC 9.30 10 3/mcL Normal 4.50-10.80 [facility] ([place]) Comment on above: Performed By: #### B MP, ANEU, GFR, ADIFF, CBC #### [place] [address] CVFLURVon 08-31-2021 Date of Onset [id number] Invalid Interpretation Code [facility] ([place]) Comment on above: Performed By: #### C VFLURV #### [place] [address] 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 Normal Replaced by [facility] ([place]) Comment on above: Performed By: #### C VFLURV #### [place] [address] First Test Unknown Normal [facility] ([place]) Comment on above: Performed By: #### C VFLURV #### [place] [address] FLU A PCR Negative Normal Negative [facility] ([place]) Comment on above: Result Comment: [place] [id number] Performed By: #### C VFLURV #### [place] [address] FLU B PCR Negative Normal Negative [facility] ([place]) Comment on above: Result Comment: [place] [id number] Performed By: #### C VFLURV #### [place] [address] Hospitalized Yes [facility] ([place]) Comment on above: Performed By: #### C VFLURV #### [place] [address] ICU No [facility] ([place] Comment on above: Performed By: #### C VFLURV #### [place] [address] Not [facility] ([place] Comment on above: Performed By: #### C VFLURV #### [place] [address] Resides in Congregate Care Setting Unknown [facility] ([place] Comment on above: Performed By: #### C VFLURV #### [place] [address] RSV PCR Negative Normal Negative [facility] ([place] Comment on above: Result [place]: [place] [id number] Performed By: #### C VFLURV #### [place] [address] SARS-CoV-2 (COVID-19) RNA CORAL+probe Ql (Unsp spec) Negative Normal Negative [facility] ([place]) Comment on above: Result Comment: [place] [id number] This test has been authorized by FDA [...] results. Performed By: #### C VFLURV #### [place] [address] Symptomatic as Defined by [facility] Unknown Normal [facility] ([place]) Comment on above: Performed By: #### C VFLURV #### [place] [address] LABORATORYOrdered By: Urmila Parisi on 08-31-2021 Date [...] Comment on above: Result [place]: [place] [id number] FLU B PCR Negative 5 (08/31/21 4:36 PM) Invalid Interpretation Code Negative [facility] Comment on above: Result Comment: [place] [id number] Hospitalized Yes (08/31/21 4:36 PM) Invalid Interpretation [...] Comment on above: Result Comment: [place] [id number] SARS-CoV-2 (COVID-19) RNA CORAL+probe Ql (Unsp spec) Negative 3 (08/31/21 4:36 PM) Invalid Interpretation Code Negative [facility]ero SS Comment on above: Result Comment: [place] [id number] Symptomatic as Defined by CDC Unknown (08/31/21 [...] Basophil, Absolute 0.00 10 3/mcL Normal 0.00-0.27 [facility] ([place]) Comment on above: Performed By: #### B MP, ANEU, GFR, ADIFF, CBC #### [address] [address] Basophils/100 WBC (Bld) 0.2 % Normal 0.0-2.5 [facility] ([place]) Comment on above: Performed By: #### B MP, ANEU, GFR, ADIFF, CBC #### [address] [address] Eosinophil, Absolute 0.00 10 3/mcL Normal 0.00-0.65 [facility] ([place] Comment on above: Performed By: #### B MP, ANEU, GFR, ADIFF, CBC #### [address] [address] Eosinophils/100 WBC (Bld) 0.0 % Normal 0.0-6.0 [facility] ([place]) Comment on above: Performed By: #### B MP, ANEU, GFR, ADIFF, CBC #### [address] [address] Lymphocyte, Absolute 0.70 10 3/mcL Low 0.90-4.32 [facility] ([place] Comment on above: Performed By: #### B MP, ANEU, GFR, ADIFF, CBC #### [address] [address] Lymphocytes/100 WBC (Bld) 7.2 % Low 20.0-40.0 [facility] ([place]) Comment on above: Performed By: #### B MP, ANEU, GFR, ADIFF, CBC #### [address] [address] Monocyte, Absolute 1.10 10 3/mcL Normal 0.09-1.40 [facility] ([place]) Comment on above: Performed By: #### B MP, ANEU, GFR, ADIFF, CBC #### [address] [address] Monocytes/100 WBC (Bld) 11.6 % Normal 2.0-13.0 [facility] ([place]) Comment on above: Performed By: #### B MP, ANEU, GFR, ADIFF, CBC #### [address] [address] Neutrophils/100 WBC (Bld) 81.0 % High 50.0-75.0 [facility] ([place]) Comment on above: Performed By: #### B MP, ANEU, GFR, ADIFF, CBC #### [address] [address] .GFRon 08-30-2021 GFR >60 Normal [facility] ([place]) Comment on above: Result Comment: GFR Population [...] MP, ANEU, GFR, ADIFF, CBC #### [address] [address] GFR Non- >60 Normal [facility] ([place]) Comment on above: Result Comment: GFR Population [...] MP, ANEU, GFR, ADIFF, CBC #### [address] [address] .NEUABSon 08-30-2021 Neutrophil, Absolute 7.50 10 3/mcL Normal 2.25-8.10 [facility] ([place] Comment on above: Performed By: #### B MP, ANEU, GFR, ADIFF, CBC #### [address] [address] BMPon 08-30-2021 BUN/Creatinine Ratio 16.7 ratio Normal 10.0-22.0 [facility] ([place] Comment on above: Performed By: #### B MP, ANEU, GFR, ADIFF, CBC #### [address] [address] Calcium [Mass/Vol] 8.4 mg/dL Low 8.7-10.4 [facility] ([place] Comment on above: Result Comment: No te - New Reference Range in effect 20 Performed By: #### B MP, ANEU, GFR, ADIFF, CBC #### [address] [address] Chloride [Moles/Vol] 111 mmol/L High 98-110 [facility] ([place]) Comment on above: Performed By: #### B MP, ANEU, GFR, ADIFF, CBC #### [address] [address] CO2 [Moles/Vol] 26 mmol/L Normal 22-32 [facility] ([place]) Comment on above: Performed By: #### B MP, ANEU, GFR, ADIFF, CBC #### [place] [address] Creatinine [Mass/Vol] 0.54 mg/dL Normal 0.50-1.20 [facility] ([place]) Comment on above: Performed By: #### B MP, ANEU, GFR, ADIFF, CBC #### [place] [address] Electrolyte Balance 0.0 mEq/L Low 4.0-15.0 [facility] ([place]) Comment on above: Performed By: #### B MP, ANEU, GFR, ADIFF, CBC #### [place] [address] Glucose [Mass/Vol] 106 mg/dL Normal 82-115 [facility] ([place] Comment on above: Performed By: #### B MP, ANEU, GFR, ADIFF, CBC #### [place] [address] Potassium [Moles/Vol] 4.0 mmol/L Normal 3.5-5.0 [facility] ([place]) Comment on above: Performed By: #### B MP, ANEU, GFR, ADIFF, CBC #### [place] [address] Sodium [Moles/Vol] 137 mmol/L Normal 136-145 [facility] ([place] Comment on above: Performed By: #### B MP, ANEU, GFR, ADIFF, CBC #### [place] [address] Urea nitrogen [Mass/Vol] 9.0 mg/dL Normal 8.0-22.0 [facility] ([place]) Comment on above: Performed By: #### B MP, ANEU, GFR, ADIFF, CBC #### [place] [address] CBCon 08-30-2021 Erythrocyte distribution width (RBC) [Ratio] 13.9 % Normal 11.5-15.5 [facility] ([place]) Comment on above: Performed By: #### B MP, ANEU, GFR, ADIFF, CBC #### [place] [id number] Hematocrit (Bld) [Volume fraction] 35.0 % Normal 34.0-46.0 [facility] ([place]) Comment on above: Performed By: #### B MP, ANEU, GFR, ADIFF, CBC #### [place] [address] Hgb 11.5 G/dL Low 12.0-16.0 [facility] ([place]) Comment on above: Performed By: #### B MP, ANEU, GFR, ADIFF, CBC #### [place] [address] MCH (RBC) [Entitic mass] 27.8 pg Normal 27.0-33.0 [facility] ([place]) Comment on above: Performed By: #### B MP, ANEU, GFR, ADIFF, CBC #### [place] [address] MCHC 32.7 G/dL Normal 32.0-36.0 [facility] ([place]) Comment on above: Performed By: #### B MP, ANEU, GFR, ADIFF, CBC #### [place] [address] MCV (RBC) [Entitic vol] 85.1 fL Normal 80.0-99.0 [facility] ([place]) Comment on above: Performed By: #### B MP, ANEU, GFR, ADIFF, CBC #### [place] [address] Platelet 193 10 3/mcL Normal 150-450 [facility] ([place]) Comment on above: Performed By: #### B MP, ANEU, GFR, ADIFF, CBC #### [place] [address] Platelet mean volume (Bld) [Entitic vol] 9.6 fL Normal 6.6-10.5 [facility] ([place]) Comment on above: Performed By: #### B MP, ANEU, GFR, ADIFF, CBC #### [place] [address] RBC 4.12 10 6/mcL Normal 4.10-5.30 [facility] ([place]) Comment on above: Performed By: #### B MP, ANEU, GFR, ADIFF, CBC #### [address] [address] WBC 9.20 10 3/mcL Normal 4.50-10.80 [facility] ([place]) Comment on above: Performed By: #### B MP, ANEU, GFR, ADIFF, CBC #### [address] [address] LABORATORYOrdered By: SYSTEM SYSTEM on 08-30-2021 Basophils [...] Basophil, Absolute 0.10 10 3/mcL Normal 0.00-0.27 [facility] ([place] Comment on above: Performed By: #### B MP, ANEU, GFR, ADIFF, CBC #### [address] [address] Basophils/100 WBC (Bld) 0.9 % Normal 0.0-2.5 [facility] ([place] Comment on above: Performed By: #### B MP, ANEU, GFR, ADIFF, CBC #### [address] [address] Eosinophil, Absolute 0.00 10 3/mcL Normal 0.00-0.65 [facility] ([place] Comment on above: Performed By: #### B MP, ANEU, GFR, ADIFF, CBC #### [address] [address] Eosinophils/100 WBC (Bld) 0.1 % Normal 0.0-6.0 [facility] ([place]) Comment on above: Performed By: #### B MP, ANEU, GFR, ADIFF, CBC #### [address] [address] Lymphocyte, Absolute 0.50 10 3/mcL Low 0.90-4.32 [facility] ([place]) Comment on above: Performed By: #### B MP, ANEU, GFR, ADIFF, CBC #### [address] [address] Lymphocytes/100 WBC (Bld) 4.9 % Low 20.0-40.0 [facility] ([place]) Comment on above: Performed By: #### B MP, ANEU, GFR, ADIFF, CBC #### [address] [address] Monocyte, Absolute 0.50 10 3/mcL Normal 0.09-1.40 [facility] ([place]) Comment on above: Performed By: #### B MP, ANEU, GFR, ADIFF, CBC #### [address] [address] Monocytes/100 WBC (Bld) 4.8 % Normal 2.0-13.0 [facility] ([place]) Comment on above: Performed By: #### B MP, ANEU, GFR, ADIFF, CBC #### [address] [address] Neutrophils/100 WBC (Bld) 89.3 % High 50.0-75.0 [facility] ([place]) Comment on above: Performed By: #### B MP, ANEU, GFR, ADIFF, CBC #### [address] [address] .GFRon 08-29-2021 GFR >60 Normal [facility] ([place]) Comment on above: Result Comment: GFR Population [...] MP, ANEU, GFR, ADIFF, CBC #### [address] [address] GFR Non- >60 Normal [facility] ([place]) Comment on above: Result Comment: GFR Population [...] MP, ANEU, GFR, ADIFF, CBC #### [address] [address] .NEUABSon 08-29-2021 Neutrophil, Absolute 9.00 10 3/mcL High 2.25-8.10 [facility] ([place] Comment on above: Performed By: #### B MP, ANEU, GFR, ADIFF, CBC #### [place] [address] ABO/Rh (Gel)on 08-29-2021 ABO/Rh Interp AB POS Invalid Interpretation Code [facility] ([place] Comment on above: Performed By: #### B MP, ANEU, GFR, ADIFF, CBC #### [place] [address] ABS (Gel)on 08-29-2021 ABSC Interp (Gel) Negative Normal [facility] ([place]) Comment on above: Performed By: #### B MP, ANEU, GFR, ADIFF, CBC #### [place] [id number] CBCon 08-29-2021 Erythrocyte distribution width (RBC) [Ratio] 14.2 % Normal 11.5-15.5 [facility] ([place] Comment on above: Performed By: #### B MP, ANEU, GFR, ADIFF, CBC #### [place] [address] Hematocrit (Bld) [Volume fraction] 42.5 % Normal 34.0-46.0 [facility] ([place]) Comment on above: Performed By: #### B MP, ANEU, GFR, ADIFF, CBC #### [place] [address] Hgb 13.7 G/dL Normal 12.0-16.0 [facility] ([place]) Comment on above: Performed By: #### B MP, ANEU, GFR, ADIFF, CBC #### [place] [address] MCH (RBC) [Entitic mass] 27.4 pg Normal 27.0-33.0 [facility] ([place]) Comment on above: Performed By: #### B MP, ANEU, GFR, ADIFF, CBC #### [place] [address] MCHC 32.1 G/dL Normal 32.0-36.0 [facility] ([place]) Comment on above: Performed By: #### B MP, ANEU, GFR, ADIFF, CBC #### [place] [address] MCV (RBC) [Entitic vol] 85.3 fL Normal 80.0-99.0 [facility] ([place]) Comment on above: Performed By: #### B MP, ANEU, GFR, ADIFF, CBC #### [place] [address] Platelet 211 10 3/mcL Normal 150-450 [facility] ([place]) Comment on above: Performed By: #### B MP, ANEU, GFR, ADIFF, CBC #### [place] [address] Platelet mean volume (Bld) [Entitic vol] 9.6 fL Normal 6.6-10.5 [facility] ([place]) Comment on above: Performed By: #### B MP, ANEU, GFR, ADIFF, CBC #### [place] [address] RBC 4.99 10 6/mcL Normal 4.10-5.30 [facility] ([place]) Comment on above: Performed By: #### B MP, ANEU, GFR, ADIFF, CBC #### [place] [id number] WBC 10.10 10 3/mcL Normal 4.50-10.80 [facility] ([place]) Comment on above: Performed By: #### B MP, ANEU, GFR, ADIFF, CBC #### [place] [id number] CMPon 08-29-2021 Albumin Level 3.1 G/dL Low 3.2-4.8 [facility] ([place]) Comment on above: Performed By: #### B MP, ANEU, GFR, ADIFF, CBC #### [place] [address] Albumin/Globulin [Mass ratio] 1.0 {ratio} Normal 0.9-1.6 [facility] ([place]) Comment on above: Performed By: #### B MP, ANEU, GFR, ADIFF, CBC #### [place] [address] ALP [Catalytic activity/Vol] 130 U/L High 38-126 [facility] ([place]) Comment on above: Performed By: #### B MP, ANEU, GFR, ADIFF, CBC #### [place] [address] ALT [Catalytic activity/Vol] 14 U/L Normal 10-49 [facility] ([place]) Comment on above: Performed By: #### B MP, ANEU, GFR, ADIFF, CBC #### [place] [id number] AST [Catalytic activity/Vol] 21 U/L Normal 8-34 [facility] ([place]) Comment on above: Performed By: #### B MP, ANEU, GFR, ADIFF, CBC #### [place] [address] Bili Total 0.30 mg/dL Normal 0.20-1.20 [facility] ([place]) Comment on above: Result Comment: Use of this assay is not recommended for patients undergoing treatment with eltrombopag due to the potential for falsely elevated results. Performed By: #### B MP, ANEU, GFR, ADIFF, CBC #### [place] [address] BUN/Creatinine Ratio 18.0 ratio Normal 10.0-22.0 [facility] ([place] Comment on above: Performed By: #### B MP, ANEU, GFR, ADIFF, CBC #### [place] [id number] Calcium [Mass/Vol] 8.2 mg/dL Low 8.7-10.4 [facility] ([place]) Comment on above: Result Comment: No te - New Reference Range in effect 20 Performed By: #### B MP, ANEU, GFR, ADIFF, CBC #### [place] [address] Chloride [Moles/Vol] 110 mmol/L Normal 98-110 [facility] ([place] Comment on above: Performed By: #### B MP, ANEU, GFR, ADIFF, CBC #### [place] [address] CO2 [Moles/Vol] 19 mmol/L Low 22-32 [facility] ([place]) Comment on above: Performed By: #### B MP, ANEU, GFR, ADIFF, CBC #### [place] [address] Creatinine [Mass/Vol] 0.50 mg/dL Normal 0.50-1.20 [facility] ([place]) Comment on above: Performed By: #### B MP, ANEU, GFR, ADIFF, CBC #### [place] [address] Electrolyte Balance 5.0 mEq/L Normal 4.0-15.0 [facility] ([place]) Comment on above: Performed By: #### B MP, ANEU, GFR, ADIFF, CBC #### [place] [id number] Globulin 3.1 G/dL Normal 1.5-3.8 [facility] ([place]) Comment on above: Performed By: #### B MP, ANEU, GFR, ADIFF, CBC #### [place] [phone] Glucose [Mass/Vol] 146 mg/dL High 82-115 [facility] ([place] Comment on above: Performed By: #### B MP, ANEU, GFR, ADIFF, CBC #### [address] [address] Potassium [Moles/Vol] 4.2 mmol/L Normal 3.5-5.0 [facility] ([place]) Comment on above: Result Comment: Spec imen slightly hemolyzed. Performed By: #### B MP, ANEU, GFR, ADIFF, CBC #### [address] [address] Sodium [Moles/Vol] 134 mmol/L Low 136-145 [facility] ([place] Comment on above: Performed By: #### B MP, ANEU, GFR, ADIFF, CBC #### [address] [address] Total Protein 6.2 G/dL Normal 5.7-8.2 [facility] ([place]) Comment on above: Result Comment: No te - New Reference Range in effect 20 Performed By: #### B MP, ANEU, GFR, ADIFF, CBC #### [address] [address] Urea nitrogen [Mass/Vol] 9.0 mg/dL Normal 8.0-22.0 [facility] ([place]) Comment on above: Performed By: #### B MP, ANEU, GFR, ADIFF, CBC #### [address] [address] LABORATORYOrdered By: Latoya Castellon on 08-29-2021 ABO and Rh group Nom (Bld) Blood group AB Rh(D) positive Invalid Interpretation Code AH BB Auto SS Blood group antibody screen Ql NEG (08/29/21 1:33 AM) Invalid Interpretation Code AH BB Auto SS LABORATORYOrdered By: CFBank SYSTEM on 08-29-2021 Albumin BCP dye [Mass/Vol] [...] 08/28/2021 11:08:21 PM Ordering Provider: NASREEN REYNAGA [facility] ([place]) XR FEMUR MINIMUM 2 VIEWS LEF Ton [...] 08/28/2021 11:09:16 PM Ordering Provider: NASREEN REYNAGA [facility] ([place]) XR HIP LEFT W/PELVIS 4 VIEWS on [...] 08/29/2021 6:32:10 PM Ordering Provider: BELLA GILLESPIE [facility]) XR PELVIS 1 OR 2 VIEWSon XR [...] 08/28/2021 11:10:03 PM Ordering Provider: NASREEN REYNAGA [facility]) XR Chest PA and Lateralon IMPRESSION: Chronic interstitial lung changes with increased nodular bandlike density in the left mid lung which could represent mucous plugging or airways inflammation area of previous bronchiectasis and scarring. Otherwise, lungs are stable and clear. Melt Supervisor: SABINO Transcribe Date/Time: May 01 2021 2:32P Dictated by : BETSEY DILLON MD This examination was interpreted and the report reviewed and electronically signed by: BETSEY DILLON MD on May 01 2021 2:37PM [facility] DIVISION OF RADIOLOGY * * *Final Report* [...] structures are intact DIVISION OF RADIOLOGY Provider, [facility] - 05/01/2021 * * *Final Report* * [...] scarring. Otherwise, lungs are stable and clear. Melt Supervisor: SABINO Transcribe Date/Time: May 01 2021 2:32P Dictated by : BETSEY DILLON MD This examination was interpreted and the report reviewed and electronically signed by: BETSEY DILLON MD on May 01 2021 2:37PM EST [facility] Radiology Study observation (narrative) [facility] X[facility] Chest PA and LateralOrder ed By: Ccf Provider on 05-01-2021 [facility] XR KNEE GENERAL 4V AP BOTH/P A BOTH/LAT/MERC RTon 02-08-2021 [facility] BD DXA - AXIAL SKELETONon BD DXA - AXIAL SKELETON Final Report DATE OF EXAM: May 10 2020 3:56PM AWX 0804 - BD DXA - AXIAL SKELETON / PROCEDURE REASON: Osteoporosis, unspecified osteoporosis type, unspecified pathological fracture p Physician Interpretation EXAM TITLE: BONE MINERAL DENSITOMETRY COMPARISON:None CLINICAL INDICATION/HISTORY: Postmenopausal TECHNIQUE: DXA [id number] v.13.4 examination was performed on the lumbar [...] at high risk for accelerated bone loss). Melt Supervisor: SABINO Transcribe Date/Time: May 11 2020 1:27P Dictated by : AMENA LESTER MD This examination was interpreted and the report reviewed and electronically signed by: AMENA LESTER MD on May 11 2020 1:28PM EST Normal [facility] ANES Margaret 10-02-2019 ANES POST HNO ID: [id number] Author: Nilam Lu Service: Anesthesiology Author Type: [...] 02, 2019 TIME: 4:55 PM PAGER/CONTACT #: [phone] [facility] ANES PREOPon 10-02-2019 ANES PREOP HNO ID: [id number] Author: Nilam Lu Service: Anesthesiology Author Type: [...] Sites With Positive Rheumatoid Factor ([facility]) Vitreous Floaters of Both Eyes Vitamin [...] Diastolic Chf (Congestive Heart Failure) ([facility]) Copd (Chronic Obstructive Pulmonary Disease) ([facility]) Tear of Medial Meniscus of Right Knee PAST MEDICAL HISTORY Diagnosis Date - Asthma - Homer lesion, acute 01/30/2019 - Carotid artery disease ([facility]) - COPD (chronic obstructive pulmonary disease) ([facility]) - Depression - Diverticulosis - Fibromyalgia - Fibromyalgia - GERD (gastroesophageal reflux disease) - GI bleed 02/2019 - Hiatal hernia - Hyperlipidemia - Hypertension - Insomnia - Iron deficiency anemia - Osteoarthritis - Osteoporosis - Piriformis syndrome - PVC's (premature ventricular contractions) - Rheumatoid arthritis ([facility]) - Sjogren's disease ([facility]) - Vitamin D deficiency PAST SURGICAL HISTORY [...] Ischemic Heart Disease Father age 42 from [place] - Hypertension Sister - other (Other) Brother [...] October 02, 2019 TIME: 1:00 PM CSN: [id number] [facility] BRIEF OP NOTon 10-02-2019 BRIEF OP NOT HNO ID: [id number] Author: Michael Knott Service: Orthopaedic Surgery Author Type: Physician Type: Brief Op Note Filed: 10/02/2019 3:05 PM Note Text: OPERATIVE/PROCEDURE REPORT LOG ID: [id number] SURGERY/PROCEDURE DATE: 10/02/2019 INCISION/PROCEDURE START TIME: 2:39 PM INCISION CLOSE/PROCEDURE END TIME: 3:00 PM SURGEON(S)/PROCEDURALIST (S) AND STOVE BOTTOM WORKER(S): Surgeon(s) and Role: * Michael Knott - Primary Physician Imaging Specialist: Ana Prescott (Pa) Registered Nurse Graduate Teaching Assistant: Mishel (López) LÓPEZ Sow SURGERY/PROCEDURE(S): Right DAK [...] 02, 2019 TIME: 3:03 PM PAGER/CONTACT #: [facility] OPERATIVE NOon 10-02-2019 OPERATIVE NO HNO ID: [id number] Author: Michael Knott Service: Orthopaedic Surgery Author Type: Physician Type: Operative Report Filed: 10/05/2019 7:34 AM Note Text: [facility] - Operative Report MARIMAR WANG : 1960 AGE: 59. SEX: F PATIENT TYPE: A HOSP [facility]: OROR LOCATION: [facility] ATTENDING PHYSICIAN: Michael Knott M.D. CSN NUMBER: [id number] DATE OF SURGERY/PROCEDURE: 10/02/2019 INCISION/PROCEDURE START TIME: 1439. INCISION CLOSE/PROCEDURE END TIME: 1505. PREOPERATIVE DIAGNOSIS: 1. Medial meniscal tear of the right knee. 2. Grade 3 localized changes inferior pole patella, medial femoral condyle. POSTOPERATIVE DIAGNOSIS: Medial meniscal tear [facility] SURGEON: Michael Knott M.D. STOVE BOTTOM WORKER: Ana Prescott PA-C. SURGERY/PROCEDURE: Arthroscopic partial medial [...] surgeon performed the entire procedure with 1st certified medical technician assistant helping with wound closure, dressing application, protecting neurovascular structures. Michael Knott M.D. JBS:[id number] [facility] PLAN OF CAREon 10-02-2019 PLAN OF CARE HNO ID: [id number] Author: Celia Baldwin (Waste Management Recycling Technician) Service: Pharmacy Author Type: ? Type: Plan of Care Filed: 10/02/2019 4:10 PM Note Text: BRAND REPRESENTATIVE BEDSIDE DELIVERY SURVEY 1. Patient to use [facility] Bedside Delivery - YES Insurance Information [...] or your Primary Care Provider. Celia Baldwin (Waste Management Recycling Technician) PAGER: [phone] October 02, 2019 4:10 PM [facility] PT EDon 10-02-2019 PT ED HNO ID: [id number] Author: Elisabeth WattsRn) LÓPEZ Alexis Service: Nursing [...] None REFERRAL (RECOMMENDATION): None Electronically Signed By: Elisabteh Alexis RN In Department: [facility] SURGERY [facility] PT ED HNO ID: [id number] Author: Krystal WattsRn) LÓPEZ Vivar Service: ? [...] Signed By: Krystal Vivar RN In Department: [facility] SURGERY [facility] NURSING PROGon 09-21-2019 NURSING PROG HNO ID: [id number] Author: Jaiden Keita (Rn) Constantino RN Service: [...] 12 Months: MRI Knee right 01/22/19 see [facility] Chest X-ray 05/05/19 see [facility] No acute radiographic abnormality. Stable cardiac enlargement X-ray Knee Right 12/02/18 see [facility] Cardiac Testing: EKG in last 12 Months: Yes: Date: 02/20/19, Comment: See [facility] NORMAL SINUS RHYTHM POSSIBLE LEFT ATRIAL ENLARGEMENT LEFT VENTRICULAR HYPERTROPHY ECHO Date: 02/13/19, Comment: EF 58% +or-5%-see [facility] Regadenoson NuclearStress Test Date: 03/02/19 , Comment: No ischemia or scar-see [facility] Last Menstrual Period: LMP Date: None recorded Postmenopausal >1yr: Yes, S/P Hysterectomy: No BMI Percentile (PEDS): N/A Risk Assessment: Cardiac Date: 02/20/19 Dr Ronit Rahman, scanned in [facility] 03/19/19(Scanned documents) Anesthesia Review: N/A Narrative: [...] Meeks RN September 25, 2019 7:26 AM [facility] HOSPon 09-01-2019 HOSP Patient:Isabell Wang MRN: [...] Thoracic or lumbosacral neuritis or radiculitis, unspecified [[id number]] Piriformis syndrome [G57.00] Intermittent palpitations [R00.2] PVC's [...] [I65.29] Chronic diastolic CHF (congestive heart failure) ([facility]) [I50.32] COPD (chronic obstructive pulmonary disease) ([facility]) [J44.9] Tear of medial meniscus of right knee [S83.241A] Allergies: Cymbalta [Duloxetine] Dilaudid [Hydromorphone (Bulk)] horse serum [Other] Morphine Nsaids (Non-Steroidal Anti-Inflammatory Drug) Vibramycin [Doxycycline Calcium] Vicodin [Hydrocodone-Acetaminoph en] Date Verified: 10/02/19 Lab Values Lab Value Units Date High Low POTA* 4.0 mEq/L 09/15/2019 5.1 3.5 ANDREW* 46.5 % 09/15/2019 44.9 34.1 Progress Notes ([facility]): Priscila Carrillo CMA 09/18/2019 10:10 AM Signed ----- Message from Sarah Pearson (Pa) sent at 09/15/2019 4:28 PM EST ----- Labs are still showing inflammation but improving since being on Orencia infusions. LIZZIE Cruz CMA 09/18/2019 10:11 AM Signed Patient was called and informed. Priscila Carrillo CMA Progress Notes ([facility]): Sarah Pearson PA-C 09/02/2019 12:33 PM [...] Rheumatological history - Patient was seeing a woodwind instruments inspector in [facility]. She was prescribed Xeljanz (she [...] Laterality Date - COLONOSCOP W/ OR W/O [facility] SPEC 04/11/2015 Colonoscopy - COLONOSCOP W/ OR [...] for RA, Dr. Arias. Sarah Pearson PA-C [facility] Office Visit ([facility] ) -------- MARIMAR WANG ([id number]) 1960 F Date Time Provider Department 08/26/19 2:00 PM BRIAN RADER (TRACY) [facility] During your visit today, we recorded the following information about you: Pulse Blood pressure Weight 76/minute 143/82 90.7 kg Brian Rader APRN.CNP 08/26/2019 3:18 PM Signed [facility] OUTPATIENT VISIT DATE [...] Laterality Date - COLONOSCOP W/ OR W/O [facility] SPEC 04/11/2015 Colonoscopy - COLONOSCOP W/ OR W/O [facility] SPEC 09/23/2017 Colonoscopy repeat 10 years - [...] Ischemic Heart Disease Father age 42 from [place] - Hypertension Sister - other (Other) Brother [...] given to patient. Discussed when to call MD/GEOLOGY ASSOCIATE or go to ED. Discussed follow up. [...] Discussed red flags and when to call MD/GEOLOGY ASSOCIATE or go to ED. Medications reconciled at [...] or concern, you can call me at [phone]. Referring Provider: RONIT RAHMAN [[id number]] Allergies As of Date: 08/26/2019 Noted Allergy [...] or concern, you can call me at [phone]. Prescriptions ordered this encounter Disp Refills Start [...] of Service: NEW PATIENT VISIT LEVEL 4 [[id number]] Encounter Status:Closed by BRIAN RADER CNP on 08/26/19 Normal [facility] PROGRESSon 08-26-2019 PROGRESS HNO ID: [id number] Author: Brian Field) Johny Service: ? Author Type: Nurse Practitioner Type: Progress Notes Filed: 08/26/2019 3:18 PM Note Text: [facility] OUTPATIENT VISIT DATE [...] Ischemic Heart Disease Father age 42 from [place] - Hypertension Sister - other (Other) Brother [...] given to patient. Discussed when to call MD/GEOLOGY ASSOCIATE or go to ED. Discussed follow up. [...] until she can be seen by Dr. Rwoe. Rx sent to pharmacy of choice. Her [...] Discussed red flags and when to call MD/GEOLOGY ASSOCIATE or go to ED. Medications reconciled at end of visit: yes I spent 45 minutes in this visit, with more than 50% of the time devoted to patient counseling. SIGNATURE: Brian Rader APRN.TRACY PATIENT NAME: Marimar Wang DATE: August 26, 2019 TIME: 1:15 PM [facility] 03[facility]2019 [facility] HNO ID: [id number] Author: KIM Moffett (Ct) Service: Nuclear Medicine Author Type: Clinical Laundry Bag Punch Operator Type: Allied Health Filed: 03/02/2019 12:03 PM [...] STATUS: Discontinued PROCEDURE TYPE: NM Stress: 15.4mCi Gu03h-Weptbos was administered IV for Rest Imaging at 08:53 by KIM Moffett . 46.4 mCi Pa24y-[id number] was administered IV for Stress Imaging at 09:59 by KIM Moffett . ADMINISTRATION TIME: PATIENT DISCHARGED TO: Ambulatory patient, left [place] department area. A Diagnostic radioactive procedure has taken place, with no further precautions necessary other than routine body substance precautions. More information regarding radiation safety can be found using this link: [email or web address] ion [email or web address] [email or web address] [email or web address] SIGNATURE: KIM Moffett PATIENT NAME: Marimar Wang DATE: March 02, 2019 TIME: 12:02 PM PAGER/CONTACT #: Normal [facility] NM CARDIAC PERF STRESS/PHARM on 03-02-2019 NM [...] 60 minutes later. See administered doses below. [facility] Date of service: 03/02/2019 9:02:38 AM [...] normal sinus rhythm. Stress complications: none. Final Melt Supervisor: SRIKANTH Transcritiffany Date/Time: Mar 02 2019 9:02A Dictated by : ORTEGA SON DO This examination was interpreted and the report reviewed and electronically signed by: ORTEGA SON DO on Mar 02 2019 4:18PM EST [id number] [facility] NUCLEAR STRESS LEXISCAN (CAR D)on 03-02-2019 NUCLEAR STRESS LEXISCAN (CARD) NAME : MARIMAR WANG PID : [id number] : 1960 Gender : Female Race : ORD : [id number] Procedure Date : Mar 02 2019 10:16:12 [...] Test Reason : Dyspnea with Exercise Location :[facility] Overread By : ORTEGA SON D.O. Edited By : Yanet Valladares Referred By : RONIT RAHMAN Acquired by : ULISES GARCIA [facility] Jeremy 02-27-2019 CNPN Telephone ([facility]) -------- MARIMAR WANG ([id number]) 1960 F Date Time Provider Department 02/27/19 [...] Fully Assessed Reason for Visit: Reminder Call [3289] Prescriptions as of 02/27/2019 Sig: FUROSEMIDE 40 [...] Encounter Status:Closed by NIKKIE BOSTON on 02/27/19 [facility] Vital Signs Date Time Vital Sign Value Performing Clinician Facility 03-19-2025 11:07-0400 Body mass index (BMI) [Ratio] 29.7 kg/m2 Josh Bennett DO Work Phone: [facility] 03-19-2025 11:07-0400 Body temperature 97.7 [degF] Josh Bennett DO Work Phone: [facility] 03-19-2025 11:07-040 Body weight 78.47 kg Josh Bennett DO Work Phone: [facility] 03-19-2025 11:07-0400 Diastolic blood pressure 80 mm[Hg] Josh Bennett DO Work Phone: [place] [address]-22-2025 11:07-0400 Heart rate 77 /min Josh Bennett DO Work Phone: [facility] 03-19-2025 11:07-0400 SaO2% (BldA) [Mass fraction] 96 % Josh Bennett DO Work Phone: [facility] 03-19-2025 11:07-0400 Systolic blood pressure 130 mm[Hg] Josh Bennett DO Work Phone: [facility] 03-18-2025 10:13-0400 Body temperature 97.39 [degF] Treatment Wstr Work Phone: [facility] 03-18-2025 10:13-0400 Diastolic blood pressure 73 mm[Hg] Treatment Wstr Work Phone: [facility] 03-18-2025 10:13-0400 Heart rate 87 /min Treatment Wstr Work Phone: [facility] 03-18-2025 10:13-0400 SaO2% (BldA) [Mass fraction] 95 % Treatment Wstr Work Phone: [facility] 03-18-2025 10:13-0400 Systolic blood pressure 123 mm[Hg] Treatment Wstr Work Phone: [facility] 03-16-2025 10:37-0400 Body height 157.48 cm Woo Thapa MD Work Phone: [facility] 03-16-2025 10:37-0400 Body mass index (BMI) [Ratio] 31.3 kg/m2 Woo Thapa MD Work Phone: [facility] 03-16-2025 10:37-0400 Body temperature 97.9 [degF] Woo Thapa MD Work Phone: [facility] 03-16-2025 10:37-0400 Body weight 77.73 kg Woo Thapa MD Work Phone: [facility] 03-16-2025 10:37-0400 Diastolic blood pressure 81 mm[Hg] Woo Thapa MD Work Phone: 2([phone] [place] [address] 03-16-2025 10:37-0400 Heart rate 72 /min Woo Thapa MD Work Phone: 2([phone])[phone] [place] [address] 03-16-2025 10:37-0400 Respiratory rate 18 /min Woo Thapa MD Work Phone: 2(485)[phone] [place] [address] 03-16-2025 10:37-0400 SaO2% (BldA) [Mass fraction] 98 % Woo Thapa MD Work Phone: [phone] [place] [place] [address] 03-16-2025 10:37-0400 Systolic blood pressure 127 mm[Hg] Woo Thapa MD Work Phone: 8(221)[phone] [place] [address] 03-02-2025 10:59-0400 Body temperature 97.9 [degF] Woo Thapa MD Work Phone: 8(664)[phone] [place] [address] 03-02-2025 10:59-0400 Diastolic blood pressure 54 mm[Hg] Woo Thapa MD Work Phone: 9(555)287-193387 [place] [address] 03-02-2025 10:59-0400 Heart rate 74 /min Woo Thapa MD Work Phone: 9(692)941-397587 [place] [address] 03-02-2025 10:59-0400 Respiratory rate 16 /min Woo Thapa MD Work Phone: 0(902)[phone] [place] [address] 03-02-2025 10:59-0400 SaO2% (BldA) [Mass fraction] 95 % Woo Thapa MD Work Phone: 0(370)[phone] [place] [address] 03-02-2025 10:59-0400 Systolic blood pressure 132 mm[Hg] Woo Thapa MD Work Phone: 0(461)[phone] [place] [address] 03-02-2025 08:37-0400 Body height 158.75 cm Woo Thapa MD Work Phone: 5(814)[phone] [place] [address] 03-02-2025 08:37-0400 Body mass index (BMI) [Ratio] 33.8 kg/m2 Woo Thapa MD Work Phone: 0(455)[phone] [place] [address] 03-02-2025 08:37-0400 Body weight 85.3 kg Woo Thapa MD Work Phone: [facility] 02-27-2025 19:48-0400 Body temperature 98.1 [degF] Julio Arriaga GEOLOGY ASSOCIATE-C Work Phone: [facility] 02-27-2025 19:48-0400 Diastolic blood pressure 68 mm[Hg] Julio Arriaga GEOLOGY ASSOCIATE-C Work Phone: [facility] 02-27-2025 19:48-0400 Heart rate 91 /min Julio Arriaga GEOLOGY ASSOCIATE-C Work Phone: [facility] 02-27-2025 19:48-0400 Respiratory rate 16 /min Julio Arriaga GEOLOGY ASSOCIATE-C Work Phone: [facility] 02-27-2025 19:48-0400 SaO2% (BldA) [Mass fraction] 97 % Julio Arriaga GEOLOGY ASSOCIATE-C Work Phone: [facility] 02-27-2025 19:48-0400 Systolic blood pressure 147 mm[Hg] Julio Arriaga GEOLOGY ASSOCIATE-C Work Phone: [facility] 02-27-2025 17:19-0400 Body height 157.48 cm Julio Arriaga GEOLOGY ASSOCIATE-C Work Phone: [facility] 02-27-2025 17:19-0400 Body mass index (BMI) [Ratio] 33.1 kg/m2 Julio Arriaga NP-C Work Phone: [facility] 02-27-2025 17:19-0400 Body weight 82.19 kg Julio Arriaga GEOLOGY ASSOCIATE-C Work Phone: [facility] 02-18-2025 12:50-0400 Body temperature 98.91 [degF] Treatment Wstr Work Phone: [facility] 02-18-2025 12:50-0400 Diastolic blood pressure 73 mm[Hg] Treatment Wstr Work Phone: [facility] 02-18-2025 12:50-0400 Heart rate 82 /min Treatment Wstr Work Phone: [facility] 02-18-2025 12:50-0400 SaO2% (BldA) [Mass fraction] 95 % Treatment Wstr Work Phone: [facility] 02-18-2025 12:50-0400 Systolic blood pressure 159 mm[Hg] Treatment Wstr Work Phone: [facility] 02-09-2025 09:46-0400 Body height 157.48 cm Julio Arriaga GEOLOGY ASSOCIATE-C Work Phone: [facility] 02-09-2025 09:46-0400 Body mass index (BMI) [Ratio] 33.3 kg/m2 Julio Arriaga GEOLOGY ASSOCIATE-C Work Phone: [facility] 02-09-2025 09:46-0400 Body weight 82.55 kg Julio Arriaga GEOLOGY ASSOCIATE-C Work Phone: [facility] 02-09-2025 09:46-0400 Diastolic blood pressure 76 mm[Hg] Julio Arriaga GEOLOGY ASSOCIATE-C Work Phone: [facility] 02-09-2025 09:46-0400 Heart rate 68 /min Julio Arriaga GEOLOGY ASSOCIATE-C Work Phone: [facility] 02-09-2025 09:46-0400 Respiratory rate 17 /min Julio Arriaga GEOLOGY ASSOCIATE-C Work Phone: [facility] 02-09-2025 09:46-0400 SaO2% (BldA) [Mass fraction] 96 % Julio Arriaga GEOLOGY ASSOCIATE-C Work Phone: [facility] 02-09-2025 09:46-0400 Systolic blood pressure 134 mm[Hg] Julio Arriaga GEOLOGY ASSOCIATE-C Work Phone: [facility] 02-05-2025 10:43-0400 Body mass index (BMI) [Ratio] 31.03 kg/m2 Treatment Wstr Work Phone: [facility] 02-05-2025 10:43-0400 Body temperature 99 [degF] Treatment Wstr Work Phone: [facility] 02-05-2025 10:43-0400 Body weight 82 kg Treatment Wstr Work Phone: [facility] 02-05-2025 10:43-0400 Diastolic blood pressure 76 mm[Hg] Treatment Wstr Work Phone: [facility] 02-05-2025 10:43-0400 Heart rate 74 /min Treatment Wstr Work Phone: [facility] 02-05-2025 10:43-0400 Respiratory rate 16 /min Treatment Wstr Work Phone: [facility] 02-05-2025 10:43-0400 SaO2% (BldA) [Mass fraction] 96 % Treatment Wstr Work Phone: [facility] 02-05-2025 10:43-0400 Systolic blood pressure 166 mm[Hg] Treatment Wstr Work Phone: [facility] 02-02-2025 11:01-0400 Body height 157.48 cm Julio Arriaga NP-C Work Phone: [facility] 02-02-2025 11:01-0400 Body mass index (BMI) [Ratio] 33.5 kg/m2 Julio Arriaga NP-C Work Phone: [facility] 02-02-2025 11:01-0400 Body weight 83 kg Julio Arriaga NP-C Work Phone: [facility] 02-02-2025 11:01-0400 Diastolic blood pressure 77 mm[Hg] Julio Arriaga NP-C Work Phone: [facility] 02-02-2025 11:01-0400 Heart rate 75 /min Julio Arriaga NP-C Work Phone: [facility] 02-02-2025 11:01-0400 SaO2% (BldA) [Mass fraction] 96 % Julio Corina GEOLOGY ASSOCIATE-C Work Phone: [facility] 02-02-2025 11:01-0400 Systolic blood pressure 160 mm[Hg] Julio Arriaga GEOLOGY ASSOCIATE-C Work Phone: [facility] 01-14-2025 08:27-0400 Body height 157.48 cm Julio Arriaga GEOLOGY ASSOCIATE-C Work Phone: [facility] 01-14-2025 08:27-0400 Body mass index (BMI) [Ratio] 33.5 kg/m2 Julio Arriaga GEOLOGY ASSOCIATE-C Work Phone: [facility] 01-14-2025 08:27-0400 Body temperature 97.6 [degF] Julio Arriaga GEOLOGY ASSOCIATE-C Work Phone: [facility] 01-14-2025 08:27-0400 Body weight 83 kg Julio Arriaga GEOLOGY ASSOCIATE-C Work Phone: [facility] 01-14-2025 08:27-0400 Diastolic blood pressure 84 mm[Hg] Julio Arriaga GEOLOGY ASSOCIATE-C Work Phone: [facility] 01-14-2025 08:27-0400 Heart rate 74 /min Julio Arriaga GEOLOGY ASSOCIATE-C Work Phone: [facility] 01-14-2025 08:27-0400 Respiratory rate 20 /min Julio Arriaga GEOLOGY ASSOCIATE-C Work Phone: [facility] 01-14-2025 08:27-0400 SaO2% (BldA) [Mass fraction] 96 % Julio Arriaga GEOLOGY ASSOCIATE-C Work Phone: [facility] 01-14-2025 08:27-0400 Systolic blood pressure 167 mm[Hg] Julio Arriaga GEOLOGY ASSOCIATE-C Work Phone: [facility] 01-07-2025 10:24-0400 Body temperature 97.11 [degF] Treatment Wstr Work Phone: [facility] 01-07-2025 10:24-0400 Diastolic blood pressure 60 mm[Hg] Treatment Wstr Work Phone: [facility] 01-07-2025 10:24-0400 Heart rate 75 /min Treatment Wstr Work Phone: [facility] 01-07-2025 10:24-0400 SaO2% (BldA) [Mass fraction] 93 % Treatment Wstr Work Phone: [facility] 01-07-2025 10:24-0400 Systolic blood pressure 124 mm[Hg] Treatment Wstr Work Phone: [facility] 12-27-2024 16:27-0400 Body temperature 98.2 [degF] Julio Arriaga GEOLOGY ASSOCIATE-C Work Phone: [facility] 12-27-2024 16:27-0400 Diastolic blood pressure 58 mm[Hg] Julio Arriaga GEOLOGY ASSOCIATE-C Work Phone: [facility] 12-27-2024 16:27-0400 Heart rate 70 /min Julio Arriaga GEOLOGY ASSOCIATE-C Work Phone: [facility] 12-27-2024 16:27-0400 Respiratory rate 18 /min Julio Arriaga GEOLOGY ASSOCIATE-C Work Phone: [facility] 12-27-2024 16:27-0400 SaO2% (BldA) [Mass fraction] 96 % Julio Arriaga GEOLOGY ASSOCIATE-C Work Phone: [facility] 12-27-2024 16:27-0400 Systolic blood pressure 112 mm[Hg] Julio Arriaga GEOLOGY ASSOCIATE-C Work Phone: [facility] 12-27-2024 14:43-0400 Body height 157.48 cm Julio Arriaga GEOLOGY ASSOCIATE-C Work Phone: [facility] 12-27-2024 14:43-0400 Body mass index (BMI) [Ratio] 32.3 kg/m2 Julio Arriaga GEOLOGY ASSOCIATE-C Work Phone: [facility] 12-27-2024 14:43-0400 Body weight 80.33 kg Julio ECHEVARRIA Work Phone: [facility] 11-30-2024 10:31-0400 Body mass index (BMI) [Ratio] 30.55 kg/m2 Delvin Ron PUNCHING MACHINE OPERATOR.QUAL FIELD MANAGER Work Phone: [facility] 11-30-2024 10:31-0400 Body temperature 97.7 [degF] Delvin Ron PUNCHING MACHINE OPERATOR.QUAL FIELD MANAGER Work Phone: [facility] 11-30-2024 10:31-0400 Body weight 80.74 kg Delvin Ron PUNCHING MACHINE OPERATOR.QUAL FIELD MANAGER Work Phone: [facility] 11-30-2024 10:31-0400 Diastolic blood pressure 75 mm[Hg] Delvin Ron PUNCHING MACHINE OPERATOR.QUAL FIELD MANAGER Work Phone: [facility] 11-30-2024 10:31-0400 Heart rate 80 /min Delvin Ron PUNCHING MACHINE OPERATOR.QUAL FIELD MANAGER Work Phone: [facility] 11-30-2024 10:31-0400 SaO2% (BldA) [Mass fraction] 95 % Delvin Ron PUNCHING MACHINE OPERATOR.QUAL FIELD MANAGER Work Phone: [facility] 11-30-2024 10:31-0400 Systolic blood pressure 129 mm[Hg] Delvin Ron PUNCHING MACHINE OPERATOR.QUAL FIELD MANAGER Work Phone: [facility] 11-30-2024 10:18-0400 Body mass index (BMI) [Ratio] 30.64 kg/m2 Lab/Port Wstr Work Phone: [facility] 11-30-2024 10:18-0400 Body weight 80.97 kg Lab/Port Wstr Work Phone: [facility] 11-10-2024 09:49-0400 Body temperature 97.7 [degF] Sidney Joya MD Work Phone: [facility] 11-10-2024 09:49-0400 Diastolic blood pressure 81 mm[Hg] Sidney Joya MD Work Phone: [facility] 11-10-2024 09:49-0400 Heart rate 80 /min Sidney Joya MD Work Phone: [facility] 11-10-2024 09:49-0400 SaO2% (BldA) [Mass fraction] 94 % Sidney Joya MD Work Phone: [facility] 11-10-2024 09:49-0400 Systolic blood pressure 138 mm[Hg] Sidney Joya MD Work Phone: [facility] 11-09-2024 10:55-0400 Body mass index (BMI) [Ratio] 31.75 kg/m2 Delvin Ron PUNCHING MACHINE OPERATOR.QUAL FIELD MANAGER Work Phone: [facility] 11-09-2024 10:55-0400 Body temperature 98.1 [degF] Delvin Ron PUNCHING MACHINE OPERATOR.QUAL FIELD MANAGER Work Phone: [facility] 11-09-2024 10:55-0400 Body weight 83.9 kg Delvin Ron PUNCHING MACHINE OPERATOR.QUAL FIELD MANAGER Work Phone: [facility] 11-09-2024 10:55-0400 Diastolic blood pressure 70 mm[Hg] Delvin Ron PUNCHING MACHINE OPERATOR.QUAL FIELD MANAGER Work Phone: [facility] 11-09-2024 10:55-0400 Heart rate 99 /min Delvin Ron PUNCHING MACHINE OPERATOR.QUAL FIELD MANAGER Work Phone: [facility] 11-09-2024 10:55-0400 SaO2% (BldA) [Mass fraction] 94 % Delvin Ron PUNCHING MACHINE OPERATOR.QUAL FIELD MANAGER Work Phone: [facility] 11-09-2024 10:55-0400 Systolic blood pressure 140 mm[Hg] Theresa Ron PUNCHING MACHINE OPERATOR.QUAL FIELD MANAGER Work Phone: [facility] 11-06-2024 09:51-0400 Body temperature 97.9 [degF] Lab/Port Wstr Work Phone: [facility] 11-06-2024 09:51-0400 Diastolic blood pressure 75 mm[Hg] Lab/Port Wstr Work Phone: [facility] 11-06-2024 09:51-0400 Heart rate 62 /min Lab/Port Wstr Work Phone: [facility] 11-06-2024 09:51-0400 SaO2% (BldA) [Mass fraction] 98 % Lab[facility]Port [facility] Work Phone: [facility] 11-06-2024 09:51-0400 Systolic blood pressure 122 mm[Hg] Lab/Port Wstr Work Phone: [facility] 11-03-2024 09:42-0400 Body temperature 97.81 [degF] Sidney Joya MD Work Phone: [facility] 11-03-2024 09:42-0400 Diastolic blood pressure 74 mm[Hg] Sidney Joya MD Work Phone: [facility] 11-03-2024 09:42-0400 Heart rate 76 /min Sidney Joya MD Work Phone: [facility] 11-03-2024 09:42-0400 SaO2% (BldA) [Mass fraction] 97 % Sidney Joya MD Work Phone: [facility] 11-03-2024 09:42-0400 Systolic blood pressure 152 mm[Hg] Sidney Joya MD Work Phone: [facility] 11-02-2024 09:34-0400 Body temperature 97.81 [degF] Treatment Wstr Work Phone: [facility] 11-02-2024 09:34-0400 Diastolic blood pressure 80 mm[Hg] Treatment Wstr Work Phone: [facility] 11-02-2024 09:34-0400 Heart rate 77 /min Treatment Wstr Work Phone: [facility] 11-02-2024 09:34-0400 Respiratory rate 18 /min Treatment Wstr Work Phone: [facility] 11-02-2024 09:34-0400 SaO2% (BldA) [Mass fraction] 95 % Treatment Wstr Work Phone: [facility] 11-02-2024 09:34-0400 Systolic blood pressure 136 mm[Hg] Treatment Wstr Work Phone: [facility] 10-30-2024 09:17-0400 Body mass index (BMI) [Ratio] 33.33 kg/m2 Josh Bennett DO Work Phone: [facility] 10-30-2024 09:17-0400 Body temperature 97.59 [degF] Josh Bennett DO Work Phone: [facility] 10-30-2024 09:17-0400 Body weight 88.22 kg Josh Bennett DO Work Phone: [facility] 10-30-2024 09:17-0400 Diastolic blood pressure 75 mm[Hg] Josh Bennett DO Work Phone: [facility] 10-30-2024 09:17-0400 Heart rate 77 /min Josh Bennett DO Work Phone: [facility] 10-30-2024 09:17-0400 SaO2% (BldA) [Mass fraction] 96 % Josh Bennett DO Work Phone: [facility] 10-30-2024 09:17-0400 Systolic blood pressure 125 mm[Hg] Josh Bennett DO Work Phone: [facility] 10-30-2024 03:30-0400 Body temperature 97.1 [degF] Julio Arriaga GEOLOGY ASSOCIATE-C Work Phone: [facility] 10-30-2024 03:30-0400 Diastolic blood pressure 78 mm[Hg] Julio Arriaga GEOLOGY ASSOCIATE-C Work Phone: [facility] 10-30-2024 03:30-0400 Heart rate 74 /min Julio Arriaga GEOLOGY ASSOCIATE-C Work Phone: [facility] 10-30-2024 03:30-0400 Respiratory rate 18 /min Julio Arriaga GEOLOGY ASSOCIATE-C Work Phone: [facility] 10-30-2024 03:30-0400 SaO2% (BldA) [Mass fraction] 97 % Julio Arriaga GEOLOGY ASSOCIATE-C Work Phone: [facility] 10-30-2024 03:30-0400 Systolic blood pressure 136 mm[Hg] Julio Arriaga GEOLOGY ASSOCIATE-C Work Phone: [facility] 10-30-2024 00:58-0400 Body height 157.48 cm Julio Arriaga GEOLOGY ASSOCIATE-C Work Phone: [facility] 10-30-2024 00:58-0400 Body mass index (BMI) [Ratio] 35.5 kg/m2 Julio Arriaga GEOLOGY ASSOCIATE-C Work Phone: [facility] 10-30-2024 00:58-0400 Body weight 88.1 kg Julio Arriaga GEOLOGY ASSOCIATE-C Work Phone: [facility] 10-27-2024 09:47-0400 Body mass index (BMI) [Ratio] 33.48 kg/m2 Ricci Abreu MD Work Phone: [facility] 10-27-2024 09:47-0400 Body temperature 98.01 [degF] Ricci Abreu MD Work Phone: [facility] 10-27-2024 09:47-0400 Body weight 88.63 kg iRcci Abreu MD Work Phone: [facility] 10-27-2024 09:47-0400 Diastolic blood pressure 83 mm[Hg] Ricci Abreu MD Work Phone: [facility] 10-27-2024 09:47-0400 Heart rate 78 /min Ricci Abreu MD Work Phone: [facility] 10-27-2024 09:47-0400 SaO2% (BldA) [Mass fraction] 96 % Ricci Abreu MD Work Phone: [facility] 10-27-2024 09:47-0400 Systolic blood pressure 151 mm[Hg] Ricci Abreu MD Work Phone: [facility] 10-24-2024 23:00-0400 Body temperature 98.2 [degF] Julio Arriaga GEOLOGY ASSOCIATE-C Work Phone: [facility] 10-24-2024 23:00-0400 Diastolic blood pressure 70 mm[Hg] Julio Arriaga GEOLOGY ASSOCIATE-C Work Phone: [facility] 10-24-2024 23:00-0400 Heart rate 80 /min Julio Arriaga GEOLOGY ASSOCIATE-C Work Phone: [facility] 10-24-2024 23:00-0400 Respiratory rate 12 /min Julio Arriaga GEOLOGY ASSOCIATE-C Work Phone: [facility] 10-24-2024 23:00-0400 SaO2% (BldA) [Mass fraction] 96 % Julio Arriaga GEOLOGY ASSOCIATE-C Work Phone: [facility] 10-24-2024 23:00-0400 Systolic blood pressure 150 mm[Hg] Julio Arriaga GEOLOGY ASSOCIATE-C Work Phone: [facility] 10-24-2024 21:03-0400 Body mass index (BMI) [Ratio] 36.3 kg/m2 Julio Arriaga GEOLOGY ASSOCIATE-C Work Phone: [facility] 10-24-2024 21:03-0400 Body weight 90 kg Julio Arriaga GEOLOGY ASSOCIATE-C Work Phone: [facility] 10-24-2024 20:58-0400 Body height 157.48 cm Julio Arriaga GEOLOGY ASSOCIATE-C Work Phone: [facility] 10-20-2024 09:34-0400 Body mass index (BMI) [Ratio] 33.62 kg/m2 Shawn Beltran MD Work Phone: [facility] 10-20-2024 09:34-0400 Body temperature 98.6 [degF] Shawn Beltran MD Work Phone: [facility] 10-20-2024 09:34-0400 Body weight 89 kg Shawn Beltran MD Work Phone: [facility] 10-20-2024 09:34-0400 Diastolic blood pressure 83 mm[Hg] Shawn Beltran MD Work Phone: [facility] Comment on above: hasn't taken BP meds 10-20-2024 09:34-0400 Heart rate 90 /min Shawn Beltran MD Work Phone: [facility] 10-20-2024 09:34-0400 Respiratory rate 20 /min Shawn Beltran MD Work Phone: [facility] 10-20-2024 09:34-0400 SaO2% (BldA) [Mass fraction] 97 % Shawn Beltran MD Work Phone: [facility] 10-20-2024 09:34-0400 Systolic blood pressure 163 mm[Hg] Shawn Beltran MD Work Phone: [facility] Comment on above: hasn't taken BP meds 10-16-2024 09:52-0400 Body mass index (BMI) [Ratio] 33.47 kg/m2 Treatment Wstr Work Phone: [facility] 10-16-2024 09:52-0400 Body temperature 98.2 [degF] Treatment Wstr Work Phone: [facility] 10-16-2024 09:52-0400 Body weight 88.6 kg Treatment Wstr Work Phone: [facility] 10-16-2024 09:52-0400 Diastolic blood pressure 77 mm[Hg] Treatment Wstr Work Phone: [facility] 10-16-2024 09:52-0400 Heart rate 87 /min Treatment Wstr Work Phone: [facility] 10-16-2024 09:52-0400 SaO2% (BldA) [Mass fraction] 96 % Treatment Wstr Work Phone: [facility] 10-16-2024 09:52-0400 Systolic blood pressure 152 mm[Hg] Treatment Wstr Work Phone: [facility] 10-13-2024 09:47-0400 Body mass index (BMI) [Ratio] 33.31 kg/m2 Sidney Joya MD Work Phone: [facility] 10-13-2024 09:47-0400 Body temperature 98.4 [degF] Sidney Joya MD Work Phone: [facility] 10-13-2024 09:47-0400 Body weight 88.18 kg Sidney Joya MD Work Phone: [facility] 10-13-2024 09:47-0400 Diastolic blood pressure 58 mm[Hg] Sidney Joya MD Work Phone: [facility] 10-13-2024 09:47-0400 Heart rate 79 /min Sidney Joya MD Work Phone: [facility] 10-13-2024 09:47-0400 SaO2% (BldA) [Mass fraction] 97 % Sidney Joya MD Work Phone: [facility] 10-13-2024 09:47-0400 Systolic blood pressure 121 mm[Hg] Sidney Joya MD Work Phone: [facility] 10-07-2024 09:52-0400 Body temperature 97.81 [degF] Treatment Wstr Work Phone: [facility] 10-07-2024 09:52-0400 Diastolic blood pressure 76 mm[Hg] Treatment Wstr Work Phone: [facility] 10-07-2024 09:52-0400 Heart rate 94 /min Treatment Wstr Work Phone: [facility] 10-07-2024 09:52-0400 SaO2% (BldA) [Mass fraction] 93 % Treatment Wstr Work Phone: [facility] 10-07-2024 09:52-0400 Systolic blood pressure 135 mm[Hg] Treatment Wstr Work Phone: [facility] 10-06-2024 09:50-0400 Body temperature 98.01 [degF] Sidney Joya MD Work Phone: [facility] 10-06-2024 09:50-0400 Diastolic blood pressure 80 mm[Hg] Sidney Joya MD Work Phone: [facility] 10-06-2024 09:50-0400 Heart rate 78 /min Sidney Joya MD Work Phone: [facility] 10-06-2024 09:50-0400 Respiratory rate 18 /min Sidney Joya MD Work Phone: [facility] 10-06-2024 09:50-0400 SaO2% (BldA) [Mass fraction] 99 % Sidney Joya MD Work Phone: [facility] 10-06-2024 09:50-0400 Systolic blood pressure 153 mm[Hg] Sidney Joya MD Work Phone: [facility] 10-05-2024 09:23-0400 Body height 162.7 cm Treatment Wstr Work Phone: [facility] 10-05-2024 09:23-0400 Body mass index (BMI) [Ratio] 33.33 kg/m2 Treatment Wstr Work Phone: [facility] 10-05-2024 09:23-0400 Body temperature 97 [degF] Treatment Wstr Work Phone: [facility] 10-05-2024 09:23-0400 Body weight 88.22 kg Treatment Wstr Work Phone: [facility] 10-05-2024 09:23-0400 Diastolic blood pressure 69 mm[Hg] Treatment Wstr Work Phone: [facility] 10-05-2024 09:23-0400 Heart rate 63 /min Treatment Wstr Work Phone: [facility] 10-05-2024 09:23-0400 SaO2% (BldA) [Mass fraction] 95 % Treatment Wstr Work Phone: [facility] 10-05-2024 09:23-0400 Systolic blood pressure 142 mm[Hg] Treatment Wstr Work Phone: [facility] 10-02-2024 10:00-0500 Body height 157.48 cm Julio ECHEVARRIA Work Phone: [facility] 10-02-2024 10:00-0500 Body mass index (BMI) [Ratio] 34.4 kg/m2 Julio Arriaga GEOLOGY ASSOCIATE-C Work Phone: [facility] 10-02-2024 10:00-0500 Body temperature 97.5 [degF] Julio Arriaga GEOLOGY ASSOCIATE-C Work Phone: [facility] 10-02-2024 10:00-0500 Body weight 85.27 kg Julio Arriaga GEOLOGY ASSOCIATE-C Work Phone: [facility] 10-02-2024 10:00-0500 Diastolic blood pressure 75 mm[Hg] Julio Arriaga GEOLOGY ASSOCIATE-C Work Phone: [facility] 10-02-2024 10:00-0500 Heart rate 72 /min Julio Arriaga GEOLOGY ASSOCIATE-C Work Phone: [facility] 10-02-2024 10:00-0500 Respiratory rate 16 /min Julio Arriaga GEOLOGY ASSOCIATE-C Work Phone: [facility] 10-02-2024 10:00-0500 SaO2% (BldA) [Mass fraction] 95 % Julio Arriaga GEOLOGY ASSOCIATE-C Work Phone: [facility] 10-02-2024 10:00-0500 Systolic blood pressure 172 mm[Hg] Julio Arriaga GEOLOGY ASSOCIATE-C Work Phone: [facility] 09-30-2024 09:21-0500 Body mass index (BMI) [Ratio] 33.98 kg/m2 Juan José Cheema MD Work Phone: [facility] 09-30-2024 09:21-0500 Body weight 88.09 kg Juan José Cheema MD Work Phone: [facility] 09-30-2024 09:21-0500 Diastolic blood pressure 68 mm[Hg] Juan José Cheema MD Work Phone: [facility] 09-30-2024 09:21-0500 Systolic blood pressure 122 mm[Hg] Juan José Cheema MD Work Phone: [facility] 09-25-2024 14:00-0500 Body temperature 98.1 [degF] Julio Arriaga GEOLOGY ASSOCIATE-C Work Phone: [facility] 09-25-2024 14:00-0500 Diastolic blood pressure 69 mm[Hg] Julio Arriaga GEOLOGY ASSOCIATE-C Work Phone: [facility] 09-25-2024 14:00-0500 Heart rate 95 /min Julio Arriaga GEOLOGY ASSOCIATE-C Work Phone: [facility] 09-25-2024 14:00-0500 Respiratory rate 18 /min Julio Arriaga GEOLOGY ASSOCIATE-C Work Phone: [facility] 09-25-2024 14:00-0500 SaO2% (BldA) [Mass fraction] 96 % Julio Arriaga GEOLOGY ASSOCIATE-C Work Phone: [facility] 09-25-2024 14:00-0500 Systolic blood pressure 154 mm[Hg] Julio Arriaga GEOLOGY ASSOCIATE-C Work Phone: [facility] 09-24-2024 18:46-0500 Body mass index (BMI) [Ratio] 33.3 kg/m2 Julio Arriaga GEOLOGY ASSOCIATE-C Work Phone: [facility] 09-24-2024 18:46-0500 Body weight 85.27 kg Julio Arriaga GEOLOGY ASSOCIATE-C Work Phone: [facility] 09-24-2024 18:22-0500 Body mass index (BMI) [Ratio] 33.76 kg/m2 Kimmy Dixon APRN.QUAL FIELD MANAGER Work Phone: [facility] 09-24-2024 18:22-0500 Body temperature 98.2 [degF] Kimmy Dixon APRN.QUAL FIELD MANAGER Work Phone: [facility] 09-24-2024 18:22-0500 Body weight 87.5 kg Kimmy Dixon APRN.QUAL FIELD MANAGER Work Phone: [facility] 09-24-2024 18:22-0500 Diastolic blood pressure 72 mm[Hg] Kimmy Zack PUNCHING MACHINE OPERATOR.QUAL FIELD MANAGER Work Phone: [facility] 09-24-2024 18:22-0500 Heart rate 90 /min Kimmy Zack PUNCHING MACHINE OPERATOR.QUAL FIELD MANAGER Work Phone: [facility] 09-24-2024 18:22-0500 Respiratory rate 18 /min Kimmy Dixon PUNCHING MACHINE OPERATOR.QUAL FIELD MANAGER Work Phone: [facility] 09-24-2024 18:22-0500 SaO2% (BldA) [Mass fraction] 97 % Kimmy Zack PUNCHING MACHINE OPERATOR.QUAL FIELD MANAGER Work Phone: [facility] 09-24-2024 18:22-0500 Systolic blood pressure 139 mm[Hg] Kimmy James PUNCHING MACHINE OPERATOR.QUAL FIELD MANAGER Work Phone: [facility] 09-17-2024 10:23-0500 Body mass index (BMI) [Ratio] 33.6 kg/m2 Sidney Joya MD Work Phone: [facility] 09-17-2024 10:23-0500 Body temperature 96.69 [degF] Sidney Joya MD Work Phone: [facility] 09-17-2024 10:23-0500 Body weight 87.09 kg Sidney Joya MD Work Phone: [facility] 09-17-2024 10:23-0500 Diastolic blood pressure 80 mm[Hg] Sidney Joya MD Work Phone: [facility] 09-17-2024 10:23-0500 Heart rate 86 /min Sidney Joya MD Work Phone: [facility] 09-17-2024 10:23-0500 Respiratory rate 17 /min Sidney Joya MD Work Phone: [facility] 09-17-2024 10:23-0500 SaO2% (BldA) [Mass fraction] 96 % Sidney Joya MD Work Phone: [facility] 09-17-2024 10:23-0500 Systolic blood pressure 122 mm[Hg] Sidney Joya MD Work Phone: [facility] 09-15-2024 15:15-0500 Body height 161 cm Josh Bennett DO Work Phone: [facility] 09-15-2024 15:15-0500 Body mass index (BMI) [Ratio] 33.86 kg/m2 Josh Bennett DO Work Phone: [facility] 09-15-2024 15:15-0500 Body temperature 98.2 [degF] Josh Bennett DO Work Phone: [facility] 09-15-2024 15:15-0500 Body weight 87.77 kg Josh Bennett DO Work Phone: [facility] 09-15-2024 15:15-0500 Diastolic blood pressure 82 mm[Hg] Josh Bennett DO Work Phone: [facility] 09-15-2024 15:15-0500 Heart rate 82 /min Josh Bennett DO Work Phone: [facility] 09-15-2024 15:15-0500 SaO2% (BldA) [Mass fraction] 95 % Josh Bennett DO Work Phone: [facility] 09-15-2024 15:15-0500 Systolic blood pressure 149 mm[Hg] Josh Bennett DO Work Phone: [facility] 09-03-2024 16:32-0500 Body temperature 98.2 [degF] Julio Arriaga GEOLOGY ASSOCIATE-C Work Phone: [facility] 09-03-2024 16:32-0500 Diastolic blood pressure 54 mm[Hg] Julio Arriaga GEOLOGY ASSOCIATE-C Work Phone: [facility] 09-03-2024 16:32-0500 Heart rate 82 /min Julio Arriaga GEOLOGY ASSOCIATE-C Work Phone: [facility] 09-03-2024 16:32-0500 Respiratory rate 19 /min Julio Arriaga GEOLOGY ASSOCIATE-C Work Phone: [facility] 09-03-2024 16:32-0500 SaO2% (BldA) [Mass fraction] 93 % Julio Arriaga GEOLOGY ASSOCIATE-C Work Phone: [facility] 09-03-2024 16:32-0500 Systolic blood pressure 119 mm[Hg] Julio Arriaga GEOLOGY ASSOCIATE-C Work Phone: [facility] 09-03-2024 16:08-0500 Inhaled oxygen flow rate 3 L/min Julio Arriaga GEOLOGY ASSOCIATE-C Work Phone: [facility] 09-03-2024 14:00-0500 Body weight 95.1 kg Julio Arriaga GEOLOGY ASSOCIATE-C Work Phone: [facility] 09-02-2024 18:46-0500 Body mass index (BMI) [Ratio] 37.1 kg/m2 Julio Arriaga GEOLOGY ASSOCIATE-C Work Phone: [facility] 09-02-2024 09:58-0500 Body mass index (BMI) [Ratio] 34.77 kg/m2 Kimmy Dixon APRN.QUAL FIELD MANAGER Work Phone: [facility] 09-02-2024 09:58-0500 Body temperature 97 [degF] Kimmy Dixon APRN.QUAL FIELD MANAGER Work Phone: [facility] 09-02-2024 09:58-0500 Body weight 89 kg Kimmy Dixon APRN.QUAL FIELD MANAGER Work Phone: [facility] 09-02-2024 09:58-0500 Diastolic blood pressure 72 mm[Hg] Kimmy Dixon APRN.QUAL FIELD MANAGER Work Phone: [facility] 09-02-2024 09:58-0500 Heart rate 87 /min Kimmy Dixon APRN.QUAL FIELD MANAGER Work Phone: [facility] 09-02-2024 09:58-0500 Respiratory rate 18 /min Kimmy Dixon APRN.QUAL FIELD MANAGER Work Phone: [facility] 09-02-2024 09:58-0500 SaO2% (BldA) [Mass fraction] 98 % Kimmy Dixon APRN.QUAL FIELD MANAGER Work Phone: [facility] 09-02-2024 09:58-0500 Systolic blood pressure 122 mm[Hg] Kimmy Dixon APRN.QUAL FIELD MANAGER Work Phone: [facility] 07-02-2024 08:00-0500 Body temperature 97.5 [degF] Treatment Wstr Work Phone: [facility] 07-02-2024 08:00-0500 Diastolic blood pressure 68 mm[Hg] Treatment Wstr Work Phone: [facility] 07-02-2024 08:00-0500 Heart rate 79 /min Treatment Wstr Work Phone: [facility] 07-02-2024 08:00-0500 Respiratory rate 20 /min Treatment Wstr Work Phone: [facility] 07-02-2024 08:00-0500 SaO2% (BldA) [Mass fraction] 97 % Treatment Wstr Work Phone: [facility] 07-02-2024 08:00-0500 Systolic blood pressure 176 mm[Hg] Treatment Wstr Work Phone: [facility] 06-24-2024 09:12-0500 Body temperature 97.81 [degF] Treatment Wstr Work Phone: [facility] 06-24-2024 09:12-0500 Diastolic blood pressure 87 mm[Hg] Treatment Wstr Work Phone: [facility] 06-24-2024 09:12-0500 Heart rate 86 /min Treatment Wstr Work Phone: [facility] 06-24-2024 09:12-0500 Respiratory rate 20 /min Treatment Wstr Work Phone: [facility] 06-24-2024 09:12-0500 SaO2% (BldA) [Mass fraction] 97 % Treatment Wstr Work Phone: [facility] 06-24-2024 09:12-0500 Systolic blood pressure 171 mm[Hg] Treatment Wstr Work Phone: [facility] 06-18-2024 09:57-0500 Body temperature 97.39 [degF] Treatment Wstr Work Phone: [facility] 06-18-2024 09:57-0500 Heart rate 86 /min Treatment Wstr Work Phone: [facility] 06-18-2024 09:57-0500 SaO2% (BldA) [Mass fraction] 96 % Treatment Wstr Work Phone: [facility] 06-15-2024 13:42-0500 Body height 160 cm Josh Masci DO Work Phone: [facility] 06-15-2024 13:42-0500 Body mass index (BMI) [Ratio] 35.17 kg/m2 Josh Masci DO Work Phone: [facility] 06-15-2024 13:42-0500 Body temperature 97.3 [degF] Josh Masci DO Work Phone: [facility] 06-15-2024 13:42-0500 Body weight 90.04 kg Josh Masci DO Work Phone: [facility] 06-15-2024 13:42-0500 Diastolic blood pressure 72 mm[Hg] Josh Masci DO Work Phone: [facility] 06-15-2024 13:42-0500 Heart rate 77 /min Josh Masci DO Work Phone: [facility] 06-15-2024 13:42-0500 SaO2% (BldA) [Mass fraction] 96 % Josh Masci DO Work Phone: [facility] 06-15-2024 13:42-0500 Systolic blood pressure 118 mm[Hg] Josh Masci DO Work Phone: [facility] 05-21-2024 13:18-0400 Body mass index (BMI) [Ratio] 35 kg/m2 [facility] 05-21-2024 13:18-0400 Body temperature 97.2 [degF] [facility] 05-21-2024 13:18-0400 Body weight 89.63 kg [facility] 05-21-2024 13:18-0400 Diastolic blood pressure 74 mm[Hg] [facility] 05-21-2024 13:18-0400 Heart rate 86 /min [facility] 05-21-2024 13:18-0400 Respiratory rate 20 /min [facility] 05-21-2024 13:18-0400 SaO2% (BldA) [Mass fraction] 96 % [facility] 05-21-2024 13:18-0400 Systolic blood pressure 146 mm[Hg] [facility] 04-01-2024 14:37-0400 Body mass index (BMI) [Ratio] 34.58 kg/m2 [facility] 04-01-2024 14:37-0400 Body temperature 98.4 [degF] [facility] 04-01-2024 14:37-0400 Body weight 88.54 kg [facility] 04-01-2024 14:37-0400 Diastolic blood pressure 60 mm[Hg] [facility] 04-01-2024 14:37-0400 Heart rate 71 /min [facility] 04-01-2024 14:37-0400 Respiratory rate 18 /min [facility] 04-01-2024 14:37-0400 SaO2% (BldA) [Mass fraction] 96 % [facility] 04-01-2024 14:37-0400 Systolic blood pressure 149 mm[Hg] [facility] 02-26-2024 10:01-0400 Body mass index (BMI) [Ratio] 33.55 kg/m2 [facility] 02-26-2024 10:01-0400 Body temperature 97.11 [degF] [facility] 02-26-2024 10:01-0400 Body weight 85.91 kg [facility] 02-26-2024 10:01-0400 Diastolic blood pressure 80 mm[Hg] [facility] 02-26-2024 10:01-0400 Heart rate 77 /min [facility] 02-26-2024 10:01-0400 Respiratory rate 16 /min [facility] 02-26-2024 10:01-0400 Systolic blood pressure 165 mm[Hg] [facility] 01-29-2024 09:36-0400 Body mass index (BMI) [Ratio] 34.05 kg/m2 [facility] 01-29-2024 09:36-0400 Body temperature 97.9 [degF] [facility] 01-29-2024 09:36-0400 Body weight 87.18 kg [facility] 01-29-2024 09:36-0400 Diastolic blood pressure 66 mm[Hg] [facility] 01-29-2024 09:36-0400 Heart rate 74 /min [facility] 01-29-2024 09:36-0400 Respiratory rate 18 /min [facility] 01-29-2024 09:36-0400 SaO2% (BldA) [Mass fraction] 97 % [facility] 01-29-2024 09:36-0400 Systolic blood pressure 154 mm[Hg] [facility] 12-31-2023 10:28-0400 Body mass index (BMI) [Ratio] 34.93 kg/m2 [facility] 12-31-2023 10:28-0400 Body temperature 98.1 [degF] [facility] 12-31-2023 10:28-0400 Body weight 89.45 kg [facility] 12-31-2023 10:28-0400 Diastolic blood pressure 61 mm[Hg] [facility] 12-31-2023 10:28-0400 Heart rate 79 /min [facility] 12-31-2023 10:28-0400 Respiratory rate 18 /min [facility] 12-31-2023 10:28-0400 SaO2% (BldA) [Mass fraction] 96 % [facility] 12-31-2023 10:28-0400 Systolic blood pressure 137 mm[Hg] [facility] 11-21-2023 10:58-0400 Body height 160 cm Jennifer Arias MD Work Phone: [facility] 11-21-2023 10:58-0400 Body mass index (BMI) [Ratio] 35.43 kg/m2 Jennifer Arias MD Work Phone: [facility] 11-21-2023 10:58-0400 Body temperature 98.01 [degF] Jennifer Arias MD Work Phone: [facility] 11-21-2023 10:58-0400 Body weight 90.72 kg Jennifer Arias MD Work Phone: [facility] 11-21-2023 10:58-0400 Diastolic blood pressure 82 mm[Hg] Jennifer Arias MD Work Phone: [facility] 11-21-2023 10:58-0400 Heart rate 81 /min Jennifer Arias MD Work Phone: [facility] 11-21-2023 10:58-0400 Respiratory rate 10 /min Jennifer Arias MD Work Phone: [facility] 11-21-2023 10:58-0400 Systolic blood pressure 147 mm[Hg] Jennifer Arias MD Work Phone: [facility] 11-20-2023 10:25-0400 Body temperature 98.2 [degF] [facility] 11-20-2023 10:25-0400 Diastolic blood pressure 65 mm[Hg] [facility] 11-20-2023 10:25-0400 Heart rate 72 /min [facility] 11-20-2023 10:25-0400 Respiratory rate 18 /min [facility] 11-20-2023 10:25-0400 SaO2% (BldA) [Mass fraction] 96 % [facility] 11-20-2023 10:25-0400 Systolic blood pressure 138 mm[Hg] [facility] 10-19-2023 20:04-0400 Body temperature 98.4 [degF] SINAI Arriaga GEOLOGY ASSOCIATE Work Phone: [facility] 10-19-2023 20:04-0400 Diastolic blood pressure 59 mm[Hg] SINAI Arriaga GEOLOGY ASSOCIATE Work Phone: [facility] 10-19-2023 20:04-0400 Heart rate 75 /min GEOLOGY ASSOCIATERowan Arriaga GEOLOGY ASSOCIATE Work Phone: [facility] 10-19-2023 20:04-0400 Respiratory rate 20 /min GEOLOGY ASSOCIATE-Marga Arriaga GEOLOGY ASSOCIATE Work Phone: [facility] 10-19-2023 20:04-0400 SaO2% (BldA) [Mass fraction] 96 % GEOLOGY ASSOCIATE-Marga Arriaga GEOLOGY ASSOCIATE Work Phone: [facility] 10-19-2023 20:04-0400 Systolic blood pressure 148 mm[Hg] GEOLOGY ASSOCIATE-Marga Arriaga GEOLOGY ASSOCIATE Work Phone: [facility] 10-19-2023 15:17-0400 Body height 160.02 cm GEOLOGY ASSOCIATERowan Arriaga GEOLOGY ASSOCIATE Work Phone: [facility] 10-19-2023 15:17-0400 Body mass index (BMI) [Ratio] 36.1 kg/m2 GEOLOGY ASSOCIATERowan Arriaga GEOLOGY ASSOCIATE Work Phone: [facility] 10-19-2023 15:17-0400 Body weight 92.4 kg GEOLOGY ASSOCIATE-Marga Arriaga GEOLOGY ASSOCIATE Work Phone: [facility] 09-26-2023 10:27-0500 Body temperature 97.9 [degF] [facility] 09-26-2023 10:27-0500 Body weight 89.36 kg [facility] 09-26-2023 10:27-0500 Diastolic blood pressure 51 mm[Hg] [facility] 09-26-2023 10:27-0500 Heart rate 78 /min [facility] 09-26-2023 10:27-0500 Respiratory rate 18 /min [facility] 09-26-2023 10:27-0500 SaO2% (BldA) [Mass fraction] 98 % [facility] 09-26-2023 10:27-0500 Systolic blood pressure 151 mm[Hg] [facility] 08-30-2023 13:14-0500 Body temperature 97.5 [degF] [facility] 08-30-2023 13:14-0500 Body weight 89.72 kg [facility] 08-30-2023 13:14-0500 Diastolic blood pressure 74 mm[Hg] [facility] 08-30-2023 13:14-0500 Heart rate 79 /min [facility] 08-30-2023 13:14-0500 Respiratory rate 16 /min [facility] 08-30-2023 13:14-0500 SaO2% (BldA) [Mass fraction] 98 % [facility] 08-30-2023 13:14-0500 Systolic blood pressure 155 mm[Hg] [facility] 07-25-2023 13:54-0500 Diastolic blood pressure 66 mm[Hg] GEOLOGY ASSOCIATE-Marga Arriaga GEOLOGY ASSOCIATE Work Phone: [facility] 07-25-2023 13:54-0500 Heart rate 84 /min GEOLOGY ASSOCIATE-Marga Arriaga GEOLOGY ASSOCIATE Work Phone: [facility] 07-25-2023 13:54-0500 Respiratory rate 16 /min GEOLOGY ASSOCIATE-Marga Arriaga GEOLOGY ASSOCIATE Work Phone: [facility] 07-25-2023 13:54-0500 SaO2% (BldA) [Mass fraction] 98 % GEOLOGY ASSOCIATE-Marga Arriaga GEOLOGY ASSOCIATE Work Phone: [facility] 07-25-2023 13:54-0500 Systolic blood pressure 145 mm[Hg] GEOLOGY ASSOCIATE-Marga Arriaga GEOLOGY ASSOCIATE Work Phone: [facility] 07-25-2023 12:14-0500 Body height 160.02 cm GEOLOGY ASSOCIATERowan Arriaga GEOLOGY ASSOCIATE Work Phone: [facility] 07-25-2023 12:14-0500 Body mass index (BMI) [Ratio] 32.8 kg/m2 GEOLOGY ASSOCIATERowan Arriaga GEOLOGY ASSOCIATE Work Phone: [facility] 07-25-2023 12:14-0500 Body weight 83.91 kg GEOLOGY ASSOCIATERowan Arriaga GEOLOGY ASSOCIATE Work Phone: [facility] 07-03-2023 11:35-0500 Body weight 85.19 kg Chair Bath Work Phone: [facility] 05-27-2023 13:03-0400 Body temperature 98.29 [degF] Chair Bath Work Phone: [facility] 05-27-2023 13:03-0400 Body weight 83.92 kg Chair Bath Work Phone: [facility] 05-27-2023 13:03-0400 Diastolic blood pressure 73 mm[Hg] Chair Bath Work Phone: [facility] 05-27-2023 13:03-0400 Heart rate 80 /min Chair Bath Work Phone: [facility] 05-27-2023 13:03-0400 Respiratory rate 18 /min Chair Bath Work Phone: [facility] 05-27-2023 13:03-0400 Systolic blood pressure 156 mm[Hg] Chair Bath Work Phone: [facility] 05-21-2023 11:05-0400 Body height 160 cm Sarah Barile PA-C Work Phone: [facility] 05-21-2023 11:05-0400 Body temperature 96.69 [degF] Sarah Barile PA-C Work Phone: [facility] 05-21-2023 11:05-0400 Body weight 84.55 kg Sarah Barile PA-C Work Phone: [facility] 05-21-2023 11:05-0400 Diastolic blood pressure 63 mm[Hg] Sarah Barile PA-C Work Phone: [facility] 05-21-2023 11:05-0400 Heart rate 81 /min Sarah Barile PA-C Work Phone: [facility] 05-21-2023 11:05-0400 SaO2% (BldA) [Mass fraction] 92 % Sarah Barile PA-C Work Phone: [facility] 05-21-2023 11:05-0400 Systolic blood pressure 140 mm[Hg] Sarah Pearson PA-C Work Phone: [facility] 04-25-2023 15:21-0400 Diastolic blood pressure 75 mm[Hg] Bed Bath Work Phone: [facility] 04-25-2023 15:21-0400 Heart rate 68 /min Bed [facility] Work Phone: [facility] 04-25-2023 15:21-0400 Systolic blood pressure 127 mm[Hg] Bed Bath Work Phone: [facility] 04-25-2023 15:19-0400 Body weight 83.37 kg Bed Bath Work Phone: [facility] 04-25-2023 12:22-0400 Body height 161.3 cm Bed Bath Work Phone: [facility] 04-25-2023 10:47-0400 Body weight 83.37 kg Bed Bath Work Phone: [facility] 01-24-2023 10:01-0400 SaO2% (BldA) [Mass fraction] 96 % [facility] 01-24-2023 08:57-0400 Body temperature 98.4 [degF] [facility] 01-24-2023 08:57-0400 Diastolic blood pressure 41 mm[Hg] [facility] 01-24-2023 08:57-0400 Heart rate 84 /min MD GIANNI CERVANTES [facility] 01-24-2023 08:57-0400 Respiratory rate 18 /min MD GIANNI CERVANTES [facility] 01-24-2023 08:57-0400 Systolic blood pressure 125 mm[Hg] [facility] 01-23-2023 12:51-0400 Body height 159.99 cm MD GIANNI HANNABRADLEY [facility] 01-23-2023 12:51-0400 Body mass index (BMI) [Ratio] 34.3 kg/m2 MD GIANNI HANNABRADLEY [facility] 01-23-2023 12:51-0400 Body weight 88 kg MD GIANNI CERVANTES [facility] 01-23-2023 11:15-0400 Inhaled oxygen flow rate 4 L/min MD GIANNI HANNABRADLEY [facility] 11-21-2022 12:57-0400 Body height 160.[address] Selene Pierre Work Phone: 3(996)[phone] [place] [address] 11-21-2022 12:57-0400 Body mass index (BMI) [Ratio] 34.3 kg/m2 Dr. Selene Pierre Work Phone: 2(726)453-834292 [place] [address] 11-21-2022 12:57-0400 Body weight 87.[address] Selene Pierre Work Phone: 3(448)768-725992 [place] [address] 11-21-2022 12:57-0400 Diastolic blood pressure 79 mm[Hg] Dr. Selene Pierre Work Phone: 3(280)107-579192 [place] [address] 11-21-2022 12:57-0400 Heart rate 82 /min Dr. Selene Pierre Work Phone: 5(823)[phone] [place] [address] 11-21-2022 12:57-0400 SaO2% (BldA) [Mass fraction] 92 % Dr. Selene Pierre Work Phone: 4(380)[phone] [place] [address] 11-21-2022 12:57-0400 Systolic blood pressure 160 mm[Hg] Dr. Selene Pierre Work Phone: 9(520)[phone] [place] [address] 11-06-2022 15:47-0400 Body temperature 97.3 [degF] Dr. Selene Pierre Work Phone: 9(647)[phone] [place] [address] 11-06-2022 15:47-0400 Diastolic blood pressure 65 mm[Hg] Dr. Selene Pierre Work Phone: 3(148)[phone] [place] [address] 11-06-2022 15:47-0400 Heart rate 70 /min Dr. Selene Pierre Work Phone: 1(820)[phone] [place] [address] 11-06-2022 15:47-0400 Respiratory rate 16 /min Dr. Selene Pierre Work Phone: [phone] [place] [address] 11-06-2022 15:47-0400 SaO2% (BldA) [Mass fraction] 100 % Dr. Selene Pierre Work Phone: [facility] 11-06-2022 15:47-0400 Systolic blood pressure 148 mm[Hg] Dr. Selene Pierre Work Phone: [facility] 11-06-2022 13:10-0400 Body height 160.[address] Selene Pierre Work Phone: [facility] 11-06-2022 13:10-0400 Body mass index (BMI) [Ratio] 32.8 kg/m2 Dr. Selene Pierre Work Phone: [facility] 11-06-2022 13:10-0400 Body weight [address] Selene Pierre Work Phone: [facility] 11-02-2022 10:26-0400 Body temperature 97.2 [degF] [facility] 11-02-2022 10:26-0400 Body weight 86.91 kg [facility] 11-02-2022 10:26-0400 Diastolic blood pressure 67 mm[Hg] [facility] 11-02-2022 10:26-0400 Heart rate 75 /min [facility] 11-02-2022 10:26-0400 SaO2% (BldA) [Mass fraction] 97 % [facility] 11-02-2022 10:26-0400 Systolic blood pressure 134 mm[Hg] [facility] 10-18-2022 11:56-0400 Body height 161.3 cm Jennifer Arias MD Work Phone: [facility] 10-18-2022 11:56-0400 Body temperature 96.01 [degF] Jennifer Arias MD Work Phone: [facility] 10-18-2022 11:56-0400 Body weight 87.54 kg eJnnifer Arias MD Work Phone: [facility] 10-18-2022 11:56-0400 Diastolic blood pressure 50 mm[Hg] Jennifer Arias MD Work Phone: [facility] 10-18-2022 11:56-0400 Heart rate 71 /min Jennifer Arias MD Work Phone: [facility] 10-18-2022 11:56-0400 SaO2% (BldA) [Mass fraction] 96 % Jennifer Arias MD Work Phone: [facility] 10-18-2022 11:56-0400 Systolic blood pressure 141 mm[Hg] Jennifer Arias MD Work Phone: [facility] 09-19-2022 10:25-0500 Body height 160.[address] Selene Pierre Work Phone: [facility] 09-19-2022 10:25-0500 Body mass index (BMI) [Ratio] 34.3 kg/m2 Dr. Selene Pierre Work Phone: [facility] 09-19-2022 10:25-0500 Body weight 87.[address] Selene Pierre Work Phone: [facility] 09-19-2022 10:25-0500 Diastolic blood pressure 73 mm[Hg] Dr. Selene Pierre Work Phone: [facility] 09-19-2022 10:25-0500 Heart rate 76 /min Dr. Selene Pierre Work Phone: [facility] 09-19-2022 10:25-0500 SaO2% (BldA) [Mass fraction] 96 % Dr. Selene Pierre Work Phone: [facility] 09-19-2022 10:25-0500 Systolic blood pressure 114 mm[Hg] Dr. Selene Pierre Work Phone: [facility] 09-12-2022 16:21-0500 Body temperature 97.1 [degF] Dr. Selene Pierre Work Phone: [facility] 09-12-2022 16:21-0500 Diastolic blood pressure 74 mm[Hg] Dr. Selene Pierre Work Phone: [facility] 09-12-2022 16:21-0500 Heart rate 80 /min Dr. Selene Pierre Work Phone: [facility] 09-12-2022 16:21-0500 Respiratory rate 14 /min Dr. Selene Pierre Work Phone: [facility] 09-12-2022 16:21-0500 SaO2% (BldA) [Mass fraction] 95 % Dr. Selene Pierre Work Phone: [facility] 09-12-2022 16:21-0500 Systolic blood pressure 130 mm[Hg] Dr. Selene Pierre Work Phone: [facility] 08-15-2022 10:24-0500 Body height 160.[address] Selene Pierre Work Phone: [facility] 08-02-2022 10:50-0500 Heart rate 68 /min Leilani Colmenares PUNCHING MACHINE OPERATOR.QUAL FIELD MANAGER Work Phone: [facility] 08-02-2022 10:50-0500 Respiratory rate 16 /min Leilani Colmenares PUNCHING MACHINE OPERATOR.QUAL FIELD MANAGER Work Phone: [facility] 08-02-2022 10:50-0500 SaO2% (BldA) [Mass fraction] 95 % Leilani Colmenares PUNCHING MACHINE OPERATOR.QUAL FIELD MANAGER Work Phone: [facility] 07-17-2022 11:32-0500 Body temperature 97.3 [degF] Chair Bath Work Phone: [facility] 07-17-2022 11:32-0500 Body weight 90.9 kg Chair Bath Work Phone: [facility] 07-17-2022 11:32-0500 Diastolic blood pressure 82 mm[Hg] Chair Bath Work Phone: [facility] 07-17-2022 11:32-0500 Heart rate 75 /min Chair Bath Work Phone: [facility] 07-17-2022 11:32-0500 SaO2% (BldA) [Mass fraction] 97 % Chair Bath Work Phone: [facility] 07-17-2022 11:32-0500 Systolic blood pressure 174 mm[Hg] Chair Bath Work Phone: [facility] 07-13-2022 09:06-0500 Body temperature 97.9 [degF] Dr. Selene Pierre Work Phone: [facility] 07-13-2022 09:06-0500 Diastolic blood pressure 78 mm[Hg] Dr. Selene Pierre Work Phone: [facility] 07-13-2022 09:06-0500 Heart rate 76 /min Dr. Selene Pierre Work Phone: [facility] 07-13-2022 09:06-0500 Respiratory rate 17 /min Dr. Selene Pierre Work Phone: [facility] 07-13-2022 09:06-0500 SaO2% (BldA) [Mass fraction] 94 % Dr. Selene Pierre Work Phone: [facility] 07-13-2022 09:06-0500 Systolic blood pressure 130 mm[Hg] Dr. Selene Pierre Work Phone: [facility] 06-26-2022 13:48-0500 Body height 160 cm Sarah Barile PA-C Work Phone: [facility] 06-26-2022 13:48-0500 Body temperature 97.81 [degF] Sarah Barile PA-C Work Phone: [facility] 06-26-2022 13:48-0500 Body weight 91.63 kg Sarah Barile PA-C Work Phone: [facility] 06-26-2022 13:48-0500 Diastolic blood pressure 78 mm[Hg] Sarah Barile PA-C Work Phone: [facility] 06-26-2022 13:48-0500 Heart rate 96 /min Sarah Barile PA-C Work Phone: [facility] 06-26-2022 13:48-0500 Respiratory rate 16 /min Sarah Pearson PA-C Work Phone: [facility] 06-26-2022 13:48-0500 Systolic blood pressure 140 mm[Hg] Sarah Pearson PA-C Work Phone: [facility] 05-16-2022 09:20-0400 Body temperature 97.59 [degF] Sarah De Luna PUNCHING MACHINE OPERATOR.QUAL FIELD MANAGER Work Phone: [facility] 05-16-2022 09:20-0400 Body weight 93.89 kg Sarah Friaser PUNCHING MACHINE OPERATOR.QUAL FIELD MANAGER Work Phone: [facility] 05-16-2022 09:20-0400 Diastolic blood pressure 72 mm[Hg] Sarah De Luna PUNCHING MACHINE OPERATOR.QUAL FIELD MANAGER Work Phone: [facility] 05-16-2022 09:20-0400 Heart rate 98 /min Sarahbenito Friaser PUNCHING MACHINE OPERATOR.QUAL FIELD MANAGER Work Phone: [facility] 05-16-2022 09:20-0400 Respiratory rate 18 /min Sarah De Luna PUNCHING MACHINE OPERATOR.QUAL FIELD MANAGER Work Phone: [facility] 05-16-2022 09:20-0400 SaO2% (BldA) [Mass fraction] 99 % Sarah De Luna PUNCHING MACHINE OPERATOR.QUAL FIELD MANAGER Work Phone: [facility] 05-16-2022 09:20-0400 Systolic blood pressure 138 mm[Hg] Sarah Friaser PUNCHING MACHINE OPERATOR.QUAL FIELD MANAGER Work Phone: [facility] 05-03-2022 11:33-0400 Body weight 96.44 kg Bed Bath Work Phone: [facility] 04-05-2022 13:13-0400 Body temperature 97.9 [degF] Bed Bath Work Phone: [facility] 04-05-2022 13:13-0400 Diastolic blood pressure 71 mm[Hg] Bed Bath Work Phone: [facility] 04-05-2022 13:13-0400 Heart rate 74 /min Bed Bath Work Phone: [facility] 04-05-2022 13:13-0400 Respiratory rate 19 /min Bed Bath Work Phone: [facility] 04-05-2022 13:13-0400 Systolic blood pressure 141 mm[Hg] Bed Bath Work Phone: [facility] 03-05-2022 12:58-0400 Body temperature 97.9 [degF] Chair Bath [facility] 03-05-2022 12:58-0400 Body weight 99.16 kg Chair Bath [facility] 03-05-2022 12:58-0400 Diastolic blood pressure 56 mm[Hg] Chair Bath [facility] 03-05-2022 12:58-0400 Heart rate 87 /min Chair Bath [facility] 03-05-2022 12:58-0400 Respiratory rate 20 /min Chair Bath [facility] 03-05-2022 12:58-0400 Systolic blood pressure 142 mm[Hg] Chair Bath [facility] 02-01-2022 09:20-0400 Heart rate 60 /min Leilani Colmenares PUNCHING MACHINE OPERATOR.QUAL FIELD MANAGER Work Phone: [facility] 02-01-2022 09:20-0400 Respiratory rate 16 /min Leilani Colmenares PUNCHING MACHINE OPERATOR.QUAL FIELD MANAGER Work Phone: [facility] 02-01-2022 09:20-0400 SaO2% (BldA) [Mass fraction] 95 % Leilani Colmenares PUNCHING MACHINE OPERATOR.QUAL FIELD MANAGER Work Phone: [facility] 12-28-2021 11:07-0400 Body temperature 97.5 [degF] Chair Bath Work Phone: [facility] 12-28-2021 11:07-0400 Body weight 96.16 kg Chair Bath Work Phone: [facility] 12-28-2021 11:07-0400 Diastolic blood pressure 79 mm[Hg] Chair Bath Work Phone: [facility] 12-28-2021 11:07-0400 Heart rate 75 /min Chair Bath Work Phone: [facility] 12-28-2021 11:07-0400 Respiratory rate 18 /min Chair Bath Work Phone: [facility] 12-28-2021 11:07-0400 Systolic blood pressure 156 mm[Hg] Chair Bath Work Phone: [facility] 11-30-2021 10:16-0400 Body temperature 97.5 [degF] Chair Bath [facility] 11-30-2021 10:16-0400 Body weight 95.94 kg Chair Bath [facility] 11-30-2021 10:16-0400 Diastolic blood pressure 51 mm[Hg] Chair Bath [facility] 11-30-2021 10:16-0400 Heart rate 90 /min Chair Bath [facility] 11-30-2021 10:16-0400 Respiratory rate 18 /min Chair Bath [facility] 11-30-2021 10:16-0400 Systolic blood pressure 140 mm[Hg] Chair Bath [facility] 11-02-2021 10:54-0400 Body temperature 97.5 [degF] Chair Bath Work Phone: [facility] 11-02-2021 10:54-0400 Body weight 95.62 kg Chair Bath Work Phone: [facility] 11-02-2021 10:54-0400 Diastolic blood pressure 79 mm[Hg] Chair Bath Work Phone: [facility] 11-02-2021 10:54-0400 Heart rate 86 /min Chair Bath Work Phone: [facility] 11-02-2021 10:54-0400 Respiratory rate 18 /min Chair Bath Work Phone: [facility] 11-02-2021 10:54-0400 Systolic blood pressure 126 mm[Hg] Chair Bath Work Phone: [facility] 09-01-2021 16:22-0500 Respiratory rate 18 /min SONG ALMEIDA MD [facility] 09-01-2021 15:04-0500 Heart rate 106 /min SONG ALMEIDA MD [facility] 09-01-2021 15:04-0500 Respiratory rate 20 /min SONG ALMEIDA MD [facility] 09-01-2021 10:11-0500 Heart rate 90 /min SONG ALMEIDA MD [facility] 09-01-2021 10:11-0500 Respiratory rate 18 /min SONG ALMEIDA MD [facility] 09-01-2021 08:06-0500 Body temperature 97.88 [degF] SONG ALMEIDA MD [facility] 09-01-2021 08:06-0500 Diastolic blood pressure 60 mm[Hg] SONG ALMEIDA MD [facility] 09-01-2021 08:06-0500 Heart rate 87 /min SONG ALMEIDA MD [facility] 09-01-2021 08:06-0500 Mean blood pressure 81 mm[Hg] SONG ALMEIDA MD [facility] 09-01-2021 08:06-0500 Reason For Taking VItal Signs SONG ALMEIDA MD [facility] 09-01-2021 08:06-0500 Systolic blood pressure 124 mm[Hg] SONG ALMEIDA MD [facility] 09-01-2021 00:09-0500 Body temperature 98.06 [degF] SONG ALMEIDA MD [facility] 09-01-2021 00:09-0500 Diastolic blood pressure 62 mm[Hg] SONG ALMEIDA MD [facility] 09-01-2021 00:09-0500 Reason For Taking VItal Signs SONG ALMEIDA MD [facility] 09-01-2021 00:09-0500 Systolic blood pressure 122 mm[Hg] SONG ALMEIDA MD [facility] 08-31-2021 20:05-0500 Body temperature 98.24 [degF] SONG ALMEIDA MD [facility] 08-31-2021 20:05-0500 Diastolic blood pressure 59 mm[Hg] SONG ALMEIDA MD [facility] 08-31-2021 20:05-0500 Systolic blood pressure 115 mm[Hg] SONG ALMEIDA MD [facility] 08-31-2021 04:04-0500 Heart rate 90 /min SONG ALMEIDA MD [facility] 08-30-2021 19:04-0500 Heart rate 90 /min SONG ALMEIDA MD [facility] 08-30-2021 15:55-0500 Heart rate 90 /min SONG ALMEIDA MD [facility] 08-29-2021 18:28-0500 Body temperature 97.52 [degF] SONG ALMEIDA MD [facility] 08-29-2021 18:28-0500 Diastolic Blood Pressure NBP 65 1 SONG ALMEIDA MD [facility] 08-29-2021 18:28-0500 Mean blood pressure 90 mm[Hg] SONG ALMEIDA MD [facility] 08-29-2021 18:28-0500 Systolic Blood Pressure NBP 155 1 SONG ALMEIDA MD [facility] 08-29-2021 18:15-0500 Diastolic Blood Pressure NBP 59 1 SONG ALMEIDA MD [facility] 08-29-2021 18:15-0500 Mean blood pressure 84 mm[Hg] SONG ALMEIDA MD [facility] 08-29-2021 18:15-0500 Systolic Blood Pressure NBP 154 1 SONG ALMEIDA MD [facility] 08-29-2021 18:00-0500 Diastolic Blood Pressure NBP 64 1 SONG ALMEIDA MD [facility] 08-29-2021 18:00-0500 Systolic Blood Pressure NBP 143 1 SONG ALMEIDA MD [facility] 08-29-2021 17:33-0500 Body temperature 97.7 [degF] SONG ALMEIDA MD [facility] 08-29-2021 17:20-0500 Body temperature 97.66 [degF] SONG ALMEIDA MD [facility] 08-29-2021 17:15-0500 Body temperature 97.63 [degF] SONG ALMEIDA MD [facility] 08-29-2021 17:10-0500 Body temperature 97.57 [degF] SONG ALMEIDA MD [facility] 08-29-2021 02:41-0500 Body weight 37.89 kg/m2 SONG ALMEIDA MD [facility] 08-29-2021 02:04-0500 Body height 160 cm SONG ALMEIDA MD [facility] 08-29-2021 02:04-0500 Body weight 97 kg SONG ALMEIDA MD [facility] 08-29-2021 02:04-0500 Body weight 37.89 kg/m2 SONG ALMEIDA MD [facility] Encounters Encounter Date Encounter Type Care Provider Facility Start: 04-02-2025 ambulatory Michelle Gan ty:[facility] Start: 04-01-2025 ambulatory Michelle Gan ty:[facility] Start: 03-19-2025 End: 03-19-2025 Telephone encounter Josh Bennett DO Work Phone: Hematology/Oncology Comment on above: AVS 03/19 Start: 03-19-2025 End: 03-19-2025 Patient encounter procedure Josh Bennett DO Work Phone: Hematology/Oncology Start: 03-19-2025 End: 03-19-2025 ambulatory Lab/[place] [facility] Work Phone: Hematology/Oncology Comment on above: Iron deficiency anem ia due to chronic blood loss Malignant neoplasm o f anus (HCC) (Primary Dx); Iron 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 blood loss Start: 03-18-2025 End: 03-18-2025 ambulatory Treatment Rm 15 [place] [facility] Work Phone: Hematology/Oncology Comment on above: Other osteoporosis w ithout current pathological fracture (Primary Dx); Rheumatoid arthritis involving multiple sites with positive rheumatoid factor (HCC) Start: 03-16-2025 End: 03-16-2025 Patient encounter procedure Michelle AGARWALC -[facility] Work Phone: Start: 03-16-2025 End: 03-16-2025 ambulatory Woo Thapa MD Work Phone: -[facility] Start: 03-02-2025 ambulatory Kenya Garcia Facility :[facility] Start: 03-02-2025 Non-patient / Non-visit Dr. Ronny NEWMAN -[facility] Start: 03-02-2025 End: 03-02-2025 Admission to same day surgery center Dr. Kenya Garcia MD -Endoscopy Work Phone: Start: 03-02-2025 End: 03-02-2025 ambulatory Woo Thapa MD Work Phone: -Endoscopy Start: 02-28-2025 ambulatory Julio Roman [facility] Start: 02-27-2025 End: 02-27-2025 Emergency department patient visit Julio AGARWALC Work Phone: -Emergency Department Work Phone: Start: 02-18-2025 End: 02-18-2025 ambulatory Treatment Rm 18 [place] [facility] Work Phone: Hematology/Oncology Comment on above: Other osteoporosis w ithout current pathological fracture (Primary Dx); Rheumatoid arthritis involving multiple sites with positive rheumatoid factor (HCC) Start: 02-17-2025 End: 02-17-2025 Telephone encounter Josh Bennett DO Work Phone: Hematology/Oncology Comment on above: Appointment Start: 02-15-2025 End: 02-15-2025 Telephone encounter Delvin Ron APRN.QUAL FIELD MANAGER Work Phone: Hematology/Oncology Comment on above: Patient Question Start: 02-09-2025 End: 02-10-2025 Telephone encounter Delvin Ron QUAL FIELD MANAGER Work Phone: Hematology/Oncology Start: 02-09-2025 End: 02-09-[address] Kenya Garcia MD -[facility] Work Phone: Start: 02-09-2025 End: 02-09-2025 ambulatory Julio Arriaga NP-C Work Phone: -[facility] Start: 02-05-2025 End: 02-05-2025 ambulatory Treatment Rm 16 [place] [facility] Work Phone: Hematology/Oncology Comment on above: Other osteoporosis w ithout current pathological fracture (Primary Dx); Rheumatoid arthritis involving multiple sites with positive rheumatoid factor (HCC) Start: 02-03-2025 End: 02-03-2025 Refill Jennifer Arias MD Work Phone: [facility] Comment on above: Refill Request Start: 02-02-2025 End: 02-02-2025 Patient encounter procedure Michelle AGARWALC -[facility] Work Phone: Start: 02-02-2025 End: 02-02-2025 ambulatory Julio Arriaga GEOLOGY ASSOCIATE-C Work Phone: -[facility] Start: 02-01-2025 End: 02-01-2025 Subsequent hospital visit by physician Mri Radio [facility] (I-Stat/1.5t) Work Phone: Radiology Comment on above: Malignant neoplasm o f anus (HCC) [C21.0] Start: 02-01-2025 End: 02-01-2025 ambulatory Lab/[place] [facility] Work Phone: Hematology/Oncology Comment on above: Anal cancer (HCC) Start: 01-26-2025 Non-patient / Non-visit Dr. Yony Scott MD -[facility] Work Phone: Start: 01-14-2025 End: 01-14-2025 Patient encounter procedure Michelle ECHEVARRIA -[facility] Work Phone: Start: 01-14-2025 End: 01-14-2025 ambulatory Julio ECHEVARRIA Work Phone: [facility] Work Phone: Comment on above: Crohn's disease with out complication, unspecified gastrointestinal tract location (HCC) (Primary Dx); Irritable bowel syndrome with diarrhea Start: 01-13-2025 End: 01-13-2025 Refill Jennifer Arias MD Work Phone: [facility] Comment on above: Refill Request Start: 01-07-2025 End: 01-07-2025 ambulatory Treatment Rm 15 [place] [facility] Work Phone: Hematology/Oncology Comment [...] Phone: Start: 12-14-2024 ambulatory Andrez Pitts Facility :[facility] Start: 12-11-2024 End: 12-11-2024 Telephone encounter Jennifer Arias MD Work Phone: Hematology/Oncology Comment on above: Patient Update Start: 12-10-2024 End: 12-10-2024 Refill Sarah Pearson PA-C Work Phone: [facility] Comment on above: Refill Request Start: 12-07-2024 End: 12-07-2024 ambulatory SIDNEY JOYA Facility:[facility] Start: 12-07-2024 End: 12-07-2024 Follow-up encounter Sidney Joya MD Work Phone: Radiation Oncology Comment on above: Radiotherapy follow- up (Primary Dx); Anal cancer (HCC) Start: 12-07-2024 End: 12-07-2024 Telemedicine consultation with patient Sidney Joya MD Work Phone: Radiation Oncology Start: 12-04-2024 End: 12-04-2024 Telephone encounter Jennifer Arias MD Work Phone: [facility] Comment on above: Patient Update Start: 11-30-2024 End: 12-10-2024 Telephone encounter [facility] Provider Hematology/Oncology Comment on above: Appointment (Reclast ) 11/30 AVS Start: 11-30-2024 End: 11-30-2024 Telemedicine consultation with patient Jennifer Arias MD Work Phone: [facility] Start: 11-30-2024 End: 11-30-2024 ambulatory JENNIFER ARIAS Facility:[facility] Start: 11-30-2024 End: 11-30-2024 Patient encounter procedure Jennifer Arias MD Work Phone: [facility] Comment on above: Rheumatoid arthritis involving multiple sites with positive rheumatoid factor (HCC) (Primary Dx); Rheumatoid arthritis involving multiple sites, unspecified whether rheumatoid factor present (HCC); Other osteoporosis without current pathological fracture Start: 11-30-2024 End: 11-30-2024 ambulatory Lab/[place] [facility] Work Phone: Hematology/Oncology Comment on above: Anal cancer (HCC) Anal cancer (HCC) (P rimary Dx) Start: 11-26-2024 End: 11-26-2024 Refill Josh Bennett DO Work Phone: Hematology/Oncology Comment on above: Refill Request Start: 11-23-2024 End: 11-23-2024 ambulatory JULIO ARRIAGA Facility:[facility] Start: 11-18-2024 End: 11-18-2024 Refill Josh [...] Start: 11-13-2024 End: 11-13-2024 ambulatory SIDNEY JOYA Facility:[facility] Start: 11-12-2024 End: 11-12-2024 ambulatory JULIO ARRIAGA Facility:[facility] Start: 11-11-2024 End: 11-11-2024 ambulatory SIDNEY JOYA Facility:[facility] Start: 11-10-2024 End: 11-10-2024 Patient encounter procedure Sidney Joya MD Work Phone: Radiation Oncology Comment on above: Anal cancer (HCC) (P rimary Dx) Start: 11-10-2024 End: 11-10-2024 ambulatory JULIO ARRIAGA Facility:[facility] Start: 11-09-2024 End: 11-09-2024 Patient encounter procedure Delvin Ron PUNCHING MACHINE OPERATOR.QUAL FIELD MANAGER Work Phone: Hematology/Oncology Start: 11-09-2024 End: 11-09-2024 ambulatory Lab/[place] [facility] Work Phone: Hematology/Oncology Comment on above: Anal cancer (HCC) (P rimary Dx) Anal cancer (HCC) (P rimary Dx); Chemotherapy induced nausea and vomiting Start: 11-06-2024 End: 11-06-2024 ambulatory Lab/[place] [facility] Work Phone: Hematology/Oncology Comment on above: Anal cancer (HCC) (P rimary Dx) Start: 11-05-2024 End: 11-05-2024 Telephone encounter Raul ALVARENGA Hematology/Oncology Comment on above: Social Work Services ; Financial Concerns Start: 11-05-2024 End: 11-05-2024 ambulatory JULIO ARRIAGA Facility:[facility] Start: 11-04-2024 End: 11-04-2024 ambulatory JULIO ARRIAGA Facility:[facility] Start: 11-03-2024 End: 11-03-2024 Patient encounter procedure Sidney Joya MD Work Phone: Radiation Oncology Comment on above: Anal cancer (HCC) (P rimary Dx) Start: 11-03-2024 End: 11-03-2024 ambulatory JULIO ARRIAGA Facility:[facility] Start: 11-02-2024 End: 11-02-2024 ambulatory Treatment Rm 8 [facility] Work Phone: Hematology/Oncology Comment on above: Anal [...] Start: 10-29-2024 End: 10-29-2024 ambulatory JULIO ARRIAGA Facility:[facility] Start: 10-28-2024 End: 10-28-2024 Telephone encounter Sidney Joya MD Work Phone: Radiation Oncology Comment on above: Patient Update Start: 10-28-2024 End: 10-28-2024 ambulatory JULIO ARRIAGA Facility:[facility] Start: 10-27-2024 End: 10-27-2024 Patient encounter procedure Ricci Abreu MD Work Phone: Radiation Oncology Comment on above: Anal cancer (HCC) (P rimary Dx) Start: 10-27-2024 End: 10-27-2024 ambulatory JULIO ARRIAGA Facility:[facility] Start: 10-26-2024 End: 10-26-2024 Telephone encounter Melisa Ledesma MD Work Phone: Radiation Oncology Comment on above: Patient Update Radiology Pre Proced ure Instructions Patient Question Start: 10-26-2024 End: 10-26-2024 ambulatory JULIO ARRIAGA Facility:[facility] Start: 10-24-2024 End: 10-25-2024 Emergency department patient visit Julio Arriaga GEOLOGY ASSOCIATE-C Work Phone: -Emergency Department Work Phone: Start: 10-23-2024 End: 10-23-2024 ambulatory SIDNEY JOYA Facility:[facility] Start: 10-22-2024 End: 10-22-2024 ambulatory Josh Bennett DO Work Phone: Hematology/Oncology Comment on above: Unine specimen Atten tion Roxanne Start: 10-21-2024 End: 10-26-2024 Telephone encounter Josh Bennett DO Work Phone: Hematology/Oncology Comment on above: Appointment Urinary Problem; Pat ient Update Start: 10-21-2024 End: 10-21-2024 ambulatory XILUKAS TOAN Facility:[facility] Start: 10-20-2024 End: 10-20-2024 Patient encounter procedure Shawn Beltran MD Work Phone: Radiation Oncology Comment on above: Anal cancer (HCC) (P rimary Dx) Start: 10-20-2024 End: 10-21-2024 ambulatory Josh Bennett DO Work Phone: Hematology/Oncology Comment on above: PICC line or port Start: 10-19-2024 Non-patient / Non-visit Dr. Lincoln starks MD -[facility] Start: 10-19-2024 End: 10-19-[address] Josh Bennett DO -Cardiovascular Services Work Phone: Start: 10-19-2024 End: 10-19-2024 Orders Only Josh Bennett DO Work Phone: Hematology/Oncology Comment on above: Arm swelling (Primar y Dx); Anal cancer (HCC); PICC (peripherally inserted central catheter) in place Results Anal cancer (HCC) (P rimary Dx) Start: 10-19-2024 End: 10-19-2024 ambulatory Josh Bennett Facility:[facility] Start: 10-16-2024 End: 10-16-2024 Telephone encounter Josh Bennett DO Work Phone: Hematology/Oncology Comment on above: Patient Update (vomi ting and diarrhea) Start: 10-16-2024 End: 10-16-2024 ambulatory Treatment 17 Andrew [facility] Work Phone: Hematology/Oncology Comment on above: Anal cancer (HCC) (P rimary Dx) Start: 10-15-2024 End: 10-15-2024 ambulatory SIDNEY JOYA Facility:[facility] Start: 10-14-2024 ambulatory Julio Arriaga GEOLOGY ASSOCIATE Facil ity:[facility] Start: 10-14-2024 End: 10-14-2024 ambulatory JULIO ARRIAGA Facility:[facility] Start: 10-13-2024 End: 10-13-2024 Patient encounter procedure Sidney Joya MD Work Phone: Radiation Oncology Comment on above: Anal cancer (HCC) (P rimary Dx) Start: 10-13-2024 End: 10-13-2024 ambulatory Treatment Rm 17 Andrew [facility] Work Phone: Hematology/Oncology Comment on above: Anal cancer (HCC) (P rimary Dx) Start: 10-12-2024 End: 10-12-2024 Telephone encounter Josh Bennett DO Work Phone: Hematology/Oncology Comment on above: Patient Update Start: 10-12-2024 End: 10-12-2024 ambulatory Lab/Port [facility] Work Phone: Hematology/Oncology Comment on above: Anal cancer (HCC) Start: 10-12-2024 End: 10-12-2024 ambulatory JULIO ARRIAGA Facility:[facility] Start: 10-09-2024 End: 10-09-2024 ambulatory Lab/Port [place] [facility] Work Phone: Hematology/Oncology Comment on above: Anal cancer (HCC) (P rimary Dx) Start: 10-08-2024 End: 10-08-2024 Telephone encounter Roxanne Bland RN Hematology/Oncology Comment on above: Returned Goods Inspector - O ther (Follow-up ) Start: 10-08-2024 End: 10-08-2024 ambulatory Lab/Port [place] [facility] Work Phone: Hematology/Oncology Comment on above: Anal cancer (HCC) (P rimary Dx) Start: 10-07-2024 End: 12-07-2024 Follow-up encounter Juan José Cheema MD Work Phone: OB/Gynecology Start: 10-07-2024 End: 10-07-2024 ambulatory Treatment Rm 16 Andrew [facility] Work Phone: Hematology/Oncology Comment on above: Anal cancer (HCC) (P rimary Dx) Start: 10-06-2024 End: 10-06-2024 Telephone encounter Roxanne Bland RN Hematology/Oncology Comment on above: Returned Goods Inspector - O ther (C1D1 Post Treatment Call (5FU/Mitomycin) ) Start: 10-06-2024 End: 10-06-2024 ambulatory JULIO ARRIAGA Facility:[facility] Start: 10-06-2024 End: 10-06-2024 Patient encounter procedure Sidney Joya MD Work Phone: Radiation Oncology Comment on above: Anal cancer (HCC) (P rimary Dx) Start: 10-05-2024 End: 12-05-2024 Follow-up encounter Juan José Cheema MD Work Phone: OB/Gynecology Start: 10-05-2024 End: 10-05-2024 ambulatory JULIO ARRIAGA Facility:[facility] Start: 10-05-2024 End: 10-05-2024 ambulatory Treatment Rm 7 Andrew [facility] Work Phone: Hematology/Oncology Comment on above: Anal cancer (HCC) (P rimary Dx) Start: 10-02-2024 End: 10-02-2024 ambulatory Julio Arriaga GEOLOGY ASSOCIATE-C Work Phone: [facility] Work Phone: Start: 10-02-2024 End: 10-02-[address] Josh Bennett DO -Radiology, [facility] Work Phone: Start: 10-02-2024 End: 10-02-2024 ambulatory Josh Bennett Facility:[facility] Start: 09-30-2024 End: 09-30-2024 ambulatory JULIO ARRIAGA Facility:[facility] Start: 09-30-2024 Encounter for gynecological examination (general) (routine) without abnormal findings SHAWN [facility] Start: 09-30-2024 End: 09-30-2024 Subsequent hospital visit by physician Screen Mammo [facility] Mammogram Comment on above: Encounter for gyneco logical examination (general) (routine) without abnormal findings [Z01.419] Start: 09-30-2024 End: 09-30-2024 ambulatory JOSH BENNETT Facility:[facility] Start: 09-30-2024 End: 09-30-2024 Patient encounter [...] status Juan José Cheema MD Work Phone: [facility] Start: 09-29-2024 End: 10-03-2024 Radiation Oncology Note Sidney Joya MD Work Phone: Radiation Oncology Comment on above: Simulation Note Treatment Planning Start: 09-29-2024 End: 10-06-2024 Patient encounter procedure Sarah Pearson CYMadayMarga Work Phone: [facility] Rheumatology [facility] Arthritis Comment on above: Rheumatoid arthritis involving multiple sites with positive rheumatoid factor (HCC) (Primary Dx); High risk medication use; Vitamin D deficiency; Localized osteoporosis without current pathological fracture; Iron deficiency anemia, unspecified iron deficiency anemia type Start: 09-29-2024 End: 09-29-2024 Telemedicine consultation with patient Sarah Pearson LIZZIE Work Phone: [facility] Rheumatology [facility] Arthritis Start: 09-29-2024 End: 09-30-2024 ambulatory Raul ALVARENGA Hematology/Oncology Start: 09-28-2024 End: 09-29-2024 ambulatory Sarah Pearson LIZZIE Work Phone: [facility] Comment on above: September 29, 2024 appt Start: 09-28-2024 End: 10-02-2024 Telephone encounter Sarah Ingrambhupendra SAMUEL Work Phone: [facility] Comment on above: appointment change Anal cancer (HCC) (P rimary Dx) Start: 09-25-2024 End: 09-25-2024 contact lens flashing puncher [facility] Work Phone: Hematology/Oncology Comment on above: Encounter for educat ion (Primary Dx) Start: 09-24-2024 End: 09-25-2024 Emergency department patient visit Dr. Pawel Cason MD -Emergency Department Work Phone: Start: 09-24-2024 End: 09-24-2024 ambulatory JULIO ARRIAGA Facility:[facility] Start: 09-24-2024 End: 09-24-2024 Patient encounter procedure Kimmy Dixon APRN.CNP Work Phone: [facility] Comment on above: Urinary frequency (P rimary Dx); Pain Start: 09-24-2024 End: 10-07-2024 Telephone encounter Josh Bennett DO Work Phone: Hematology/Oncology Comment on above: Results Start: 09-23-2024 End: 09-23-2024 ambulatory JOSH Froy SABRINA Facility:[facility] Start: 09-23-2024 End: 09-23-2024 Subsequent hospital visit by physician Mri Radio [facility] (I-Stat/1.5t) Work Phone: Radiology Comment on above: Anal cancer (HCC) [C 21.0] Start: 09-22-2024 End: 09-22-2024 Telephone encounter Josh Bennett DO Work Phone: Hematology/Oncology Comment on above: Results Start: 09-18-2024 End: 09-18-2024 Telephone encounter Raul ALVARENGA Hematology/Oncology Comment on above: Social Work Services Start: 09-17-2024 End: 09-17-2024 ambulatory JOSH BENNETT Facility:[facility] Start: 09-17-2024 End: 09-17-2024 Patient encounter [...] Telephone encounter Jennifer Arias MD Work Phone: [facility] Rheumatology [facility] Comment on above: Patient Question Start: 09-09-2024 End: 09-09-2024 Refill Sarah Pearson PA-C Work Phone: [facility] Rheumatology and Arthritis Comment on above: Refill Request Start: 09-07-2024 End: 09-07-2024 Telephone encounter Josh Bennett DO Work Phone: Hematology/Oncology Comment on above: Appointment Start: 09-03-2024 Non-patient / Non-visit Dr. Ronny NEWMAN -[facility] Start: 09-02-2024 ambulatory Kenya Garcia Facility :[facility] Start: 09-02-2024 Non-patient / Non-visit Dr. Ronny NEWMAN -[facility] Start: 09-02-2024 End: 09-03-2024 ambulatory Kenya Garcia Facility:[facility] Start: 09-02-2024 End: 09-03-2024 Evaluation and management of inpatient Dr. Kenya Garcia MD -Medical Surgical 3 Work Phone: Start: 09-02-2024 End: 09-02-2024 ambulatory JULIO ARRIAGA Facility:[facility] Start: 09-02-2024 End: 09-02-2024 Patient encounter procedure Kimmy Dixon APRN.QUAL FIELD MANAGER Work Phone: [facility] Comment on above: Rectal pain (Primary Dx) Start: 08-27-2024 End: 08-27-2024 Patient encounter procedure Andrez Pitts DO -[facility] Work Phone: Start: 08-27-2024 End: 08-27-2024 ambulatory Andrez Pitts Facility:[facility] Start: 08-20-2024 End: 08-20-2024 ambulatory JOSH BENNETT Facility:[facility] Start: 08-20-2024 End: 08-20-2024 Subsequent hospital visit by physician Bone Density [facility] Work Phone: Radiology Comment on above: Osteoporosis, unspec ified osteoporosis type, unspecified pathological fracture presence [M81.0] Start: 08-17-2024 End: 08-17-2024 Telephone encounter Josh Bennett DO Work Phone: Hematology/Oncology Comment on above: Appointment Start: 07-02-2024 End: 07-02-2024 ambulatory Treatment Rm 15 Andrew [facility] Work Phone: Hematology/Oncology Comment on above: Iron deficiency anem ia due to chronic blood loss (Primary Dx); Iron malabsorption Start: 06-29-2024 End: 06-29-2024 ambulatory JULIO ARRIAGA [facility] Start: 06-24-2024 End: 06-24-2024 ambulatory Treatment Rm 15 Andrew [facility] Work Phone: Hematology/Oncology Comment on above: Iron deficiency anem ia due to chronic blood loss (Primary Dx); Iron malabsorption Start: 06-18-2024 End: 06-18-2024 ambulatory Treatment Rm 17 Andrew [facility] Work Phone: Hematology/Oncology Comment on above: Rheumatoid arthritis involving multiple sites with positive rheumatoid factor (HCC) (Primary Dx); Iron 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 blood loss; Iron malabsorption Start: 06-16-2024 End: 06-16-2024 Telephone encounter Jennifer Arias MD Work Phone: [facility] Rheumatology [facility]ritis Comment on above: Patient Question Start: 06-15-2024 End: 06-15-2024 ambulatory Josh Bennett DO Work Phone: Hematology/Oncology Comment on above: Iron deficiency anem ia, unspecified iron deficiency anemia type (Primary Dx) Start: 06-15-2024 End: 06-15-2024 Patient encounter procedure Josh Bennett DO Work Phone: Hematology/Oncology Start: 06-14-2024 End: 06-15-2024 Refill Jennifer Arias MD Work Phone: [facility] Rhe[facility]ology [facility] Arthritis Comment on above: Refill Request Start: 06-09-2024 End: 06-09-2024 ambulatory Julio Arriaga NP Facility:[facility] Start: 06-06-2024 End: 06-06-2024 Emergency department patient visit Gaudencio Ambriz Facility:[facility] Start: 06-03-2024 End: 06-03-2024 Telephone encounter Julio Arriaga APRN.CNP Work Phone: [facility] Comment on above: Appointment Start: 05-29-2024 End: 05-29-2024 Telephone encounter Sarah Pearson PA-C Work Phone: [facility] Arthritis & Rheumatology Comment on above: Results Start: 05-21-2024 End: 05-21-2024 ambulatory Chair 1 [facility] Hemat[facility]/Oncology Comment on above: Rheumatoid arthritis involving multiple sites with positive rheumatoid factor (HCC) (Primary Dx) Start: 05-15-2024 End: 05-15-2024 Telemedicine consultation with patient Sarah Jamison Michel SAMUEL Work Phone: [facility] Arthritis & Rheumatology Start: 05-15-2024 End: 05-15-2024 ambulatory Sarah Jamison Michel SAMUEL Work Phone: [facility] Arthritis & Rheumatology Comment on above: Rheumatoid arthritis involving multiple sites with positive rheumatoid factor (HCC) (Primary Dx); Osteoporosis, unspecified osteoporosis type, unspecified pathological fracture presence; High risk medication use; Vitamin D deficiency; Rash and nonspecific skin eruption Start: 04-27-2024 End: 04-27-2024 ambulatory Andrez Pitts Facility:[facility] Start: 04-01-2024 End: 04-01-2024 Patient encounter procedure [facility] [place] [facility] Comment on above: Rheumatoid arthritis involving multiple sites with positive rheumatoid factor (HCC) (Primary Dx) Start: 04-01-2024 End: 04-01-2024 ambulatory Chair 1 [facility] [place] [facility] Start: 03-25-2024 End: 03-25-2024 ambulatory Andrez Pitts Facility:[facility] Start: 02-26-2024 End: 02-26-2024 Patient encounter procedure [facility] [place] [facility] Comment on above: Rheumatoid arthritis involving multiple sites with positive rheumatoid factor (HCC) (Primary Dx) Start: 02-26-2024 End: 02-26-2024 ambulatory Chair 2 [facility] Start: 01-29-2024 End: 01-29-2024 [facility] Comment on above: Rheumatoid arthritis involving multiple sites with positive rheumatoid factor (HCC) (Primary Dx) Start: 01-29-2024 End: 01-29-2024 ambulatory Chair [address] [facility] Start: 12-31-2023 Telephone encounter Jennifer miranda MD Work Phone: [facility]ology [facility] Comment on above: Patient Question Start: 12-31-2023 End: 12-31-2023 ambulatory Chair [address] [facility] Start: 12-31-2023 End: 12-31-2023 Patient encounter procedure [facility] [place] [facility] Comment on above: Rheumatoid arthritis involving multiple sites with positive rheumatoid factor (HCC) (Primary Dx) Start: 12-30-2023 End: 03-05-2024 ambulatory CLARICE QUAL FIELD MANAGER [facility] Start: 12-02-2023 ambulatory JULIO QUAL FIELD MANAGER [facility] Start: 11-21-2023 End: 11-21-2023 Patient encounter procedure Jennifer Arias MD Work Phone: [facility]ology [facility] Arthritis Comment on above: Rheumatoid arthritis involving multiple sites with positive rheumatoid factor (HCC) (Primary Dx); High risk medication use; Localized osteoporosis without current pathological fracture; Vitamin D deficiency Start: 11-20-2023 End: 11-20-2023 ambulatory Chair [address] [facility] Start: 11-20-2023 End: 11-20-2023 Patient encounter procedure [facility] [place] [facility] Comment on above: Rheumatoid arthritis involving multiple sites with positive rheumatoid factor (HCC) (Primary Dx); Rheumatoid arthritis involving multiple sites, unspecified whether rheumatoid factor present (HCC); Osteoporosis, unspecified; Vitamin D deficiency Start: 11-12-2023 Orders Only Sarah huynh PA-C Work Phone: [facility] Start: 11-11-2023 Orders Only Tracy Velez PA-C Work Phone: [facility] Start: 11-06-2023 ambulatory JULIO MOLINA [facility] Start: 10-19-2023 End: 10-19-2023 Emergency department patient visit GEOLOGY ASSOCIATE-Marga Arriaga NP Work Phone: [facility]-Emergency Department Work Phone: Start: 10-18-2023 Refill Sarah huynh PA-C Work Phone: [facility] Rheumatology [facility] Arthritis Comment on above: Refill Request Start: 10-16-2023 End: 10-16-2023 ambulatory FREDI NEWMAN [facility] Start: 10-15-2023 Orders Only Jennifer mcduffie MD Work Phone: [facility]ology [facility] Start: 09-26-2023 End: 09-26-2023 ambulatory Chair 5 [facility] [place] [facility] Comment on above: Rheumatoid arthritis involving multiple sites with positive rheumatoid factor (HCC) (Primary Dx); Rheumatoid arthritis involving multiple sites, unspecified whether rheumatoid factor present (HCC) Start: 09-26-2023 End: 09-26-2023 ambulatory JULIO MOLINA [facility] Start: 09-19-2023 End: 09-19-2023 Orders Only Jennifer Arias MD Work Phone: [facility] Rheumatology [facility] Arthritis Start: 09-18-2023 End: 09-18-2023 Patient encounter procedure GEOLOGY ASSOCIATE-Marga Arriaga GEOLOGY ASSOCIATE Work Phone: [facility] Work Phone: Start: 09-16-2023 Telephone encounter Jennifer miranda MD Work Phone: [facility]thritis & Rheumatology Comment on above: Medication Preauthor ization ([place] [place] Pending [id number] [facility]/Portal) Start: 09-06-2023 End: 09-06-2023 ambulatory GEOLOGY ASSOCIATERowan Arriaga NP Work Phone: [facility] Work Phone: Start: 09-06-2023 End: 09-06-2023 Patient encounter procedure GEOLOGY ASSOCIATE-Marga Arriaga GEOLOGY ASSOCIATE Work Phone: [facility]-Laboratory, Specimen Work Phone: Start: 08-30-2023 End: 08-30-[address] [facility] [place] H[facility]cology Comment on above: Rheumatoid arthritis involving multiple sites with positive rheumatoid factor (HCC) (Primary Dx); Rheumatoid arthritis involving multiple sites, unspecified whether rheumatoid factor present (HCC) Start: 07-25-2023 End: 07-25-2023 ambulatory GEOLOGY ASSOCIATE-C Julio Arriaga GEOLOGY ASSOCIATE Work Phone: [facility] Work Phone: Start: 07-25-2023 End: 07-25-2023 Patient encounter procedure GEOLOGY ASSOCIATE-Marga Arriaga GEOLOGY ASSOCIATE Work Phone: [facility]-MRI - H Work Phone: Start: 07-12-2023 End: 07-12-2023 Patient encounter procedure GEOLOGY ASSOCIATE-Marga Arriaga GEOLOGY ASSOCIATE Work Phone: [facility] Gastroenterology Work Phone: Start: 07-05-2023 End: 07-05-2023 ambulatory GEOLOGY ASSOCIATE-Marga Arriaga GEOLOGY ASSOCIATE Work Phone: [facility] Work Phone: Start: 07-05-2023 End: 07-05-2023 Patient encounter procedure GEOLOGY ASSOCIATE-Marga Arriaga GEOLOGY ASSOCIATE Work Phone: [facility] Gastroenterology Work Phone: Start: 07-03-2023 End: 07-03-[address] [facility] Work Phone: Hematology/Oncology Comment on above: Rheumatoid arthritis involving multiple sites with positive rheumatoid factor (HCC) (Primary Dx); Rheumatoid arthritis involving multiple sites, unspecified whether rheumatoid factor present (HCC) Start: 06-19-2023 Orders Only Jennifer mcduffie MD Work Phone: [facility] Rheumatology [facility] Arthritis Start: 05-27-2023 End: 05-27-[address] [facility] Work Phone: Hematology/Oncology Comment on above: Rheumatoid arthritis involving multiple sites with positive rheumatoid factor (HCC) (Primary Dx); Rheumatoid arthritis involving multiple sites, unspecified whether rheumatoid factor present (HCC) Start: 05-21-2023 End: 05-21-2023 Patient encounter procedure Sarah Pearson PA-C Work Phone: [facility]ology [facility] Arthritis Comment on above: Rheumatoid arthritis involving multiple sites with positive rheumatoid factor (HCC) (Primary Dx); High risk medication use; Localized osteoporosis without current pathological fracture; Vitamin D deficiency Start: 04-29-2023 Telephone encounter Sarah cotto PA-C Work Phone: [facility]ritis [facility] Rheumatology Comment on above: Results Start: 04-25-2023 End: 04-25-[address] [facility] Work Phone: Hematology/Oncology Comment on above: Osteoporosis, unspec ified (Primary Dx) Start: 04-25-2023 End: 04-25-[address] [facility] Work Phone: Hematology/Oncology Comment on above: Rheumatoid arthritis involving multiple sites, unspecified whether rheumatoid factor present (HCC) (Primary Dx); Rheumatoid arthritis involving multiple sites with positive rheumatoid factor (HCC); Vitamin D deficiency; Localized osteoporosis without current pathological fracture Start: 04-17-2023 End: 04-17-2023 Patient encounter procedure GEOLOGY ASSOCIATE-C Julio Arriaga NP Work Phone: [facility] Work Phone: Start: 04-13-2023 Refill Jennifer mcduffie MD Work Phone: [facility] Rheumatology [facility] Arthritis Comment on above: Refill Request Start: 04-11-2023 Telephone encounter Jennifer miranda MD Work Phone: [facility]ology [facility] Start: 02-01-2023 Orders Only Jennifer mcduffie MD Work Phone: [facility]ology [facility]th[facility] Start: 01-24-2023 Non-patient / Non-visit MD GIANNI NAM [facility] Start: 01-23-2023 Non-patient / Non-visit MD GIANNI NAM [facility] Start: 01-23-2023 End: 01-24-2023 Evaluation and management of inpatient MD GIANNI CERVANTES [facility]-Medical Surgical 3 Work Phone: Start: 01-09-2023 End: 01-09-[address] Selene Pierre Work Phone: [facility] Start: 01-07-2023 End: 01-07-[address] Selene Pierre Work Phone: [facility] Work Phone: Start: 01-07-2023 End: 01-07-[address] Selene Pierre Work Phone: [facility] Start: 01-02-2023 Telephone encounter Jennifer miranda MD Work Phone: [facility] Arthritis & Rheumatology Comment on above: PRECERT NOT REQUIRED (Zoledronic Acid 5mg PRECERT NOT REQUIRED [id number] 01.02.23 - 01.03.24 for 1 visit [facility] Dual/Portal) Start: 12-26-2022 Telephone encounter Jennifer miranda MD Work Phone: [facility] Rhe[facility]ology [facility] Arthritis Comment on above: Patient Question Start: 12-24-2022 Refill Sarah [facility]ynh PA-C [facility] Comment on above: Refill Request Start: 12-22-2022 Refill Jennifer mcduffie MD Work Phone: [facility] Rheumatology and Arthritis Comment on above: Refill Request Start: 12-17-2022 End: 12-17-[address] Selene Pierre Work Phone: [facility] Start: 12-06-2022 End: 12-06-[address] Selene Pierre Work Phone: [facility] Start: 12-05-2022 End: 12-05-[address] Selene Pierre Work Phone: [facility] Work Phone: Start: 12-05-2022 End: 12-05-[address] Selene Pierre Work Phone: [facility]-Laboratory, Specimen Start: 11-29-2022 End: 11-29-[address] Selene Pierre Work Phone: [facility] Work Phone: Start: 11-29-2022 End: 11-29-[address] Selene Pierre Work Phone: [facility] Start: 11-26-2022 Orders Only Jennifer mcduffie MD Work Phone: [facility] Rheumatology and Arthritis Start: 11-21-2022 End: 11-21-[address] Selene Pierre Work Phone: [facility] Start: 11-19-2022 Refill Carol Mathews APRN, .CNP Work Phone: [facility] [place] Comment on above: Refill Request Start: 11-14-2022 End: 11-14-[address] Selene Pierre Work Phone: [facility] Start: 11-06-2022 Non-patient / Non-visit Dr. Sunil Pierre Work Phone: [facility] Start: 11-06-2022 End: 11-06-2022 Admission to same day surgery center Dr. Selene Pierre Work Phone: [facility]-Endoscopy Start: 11-06-2022 End: 11-06-[address] Selene Pierre Work Phone: [facility] Work Phone: Start: 11-02-2022 End: 11-02-2022 ambulatory Chair 1 [facility] Hematology/Oncology Comment on above: Rheumatoid arthritis involving multiple sites, unspecified whether rheumatoid factor present (HCC) (Primary Dx); Vitamin D deficiency; Other osteoporosis with current pathological fracture with malunion, subsequent encounter; Rheumatoid arthritis involving multiple sites with positive rheumatoid factor (HCC) Start: 10-31-2022 Refill Selene Roberson Work Phone: [facility] Comment on above: Refill Request Start: 10-24-2022 Telephone encounter Jennifer miranda MD Work Phone: [facility] Arthritis & Rheumatology Comment on above: APPROVED (Ori JONES PROVED [id number] 09.06.22 - 09.06.23 [facility] Medicare Portal) Start: 10-18-2022 End: 10-18-2022 Patient encounter procedure Jennifer Arias MD Work Phone: [facility] Rheumatology [facility] Arthritis Comment on above: Pain in joint, multi ple sites (Primary Dx); Osteoporosis, unspecified osteoporosis type, unspecified pathological fracture presence Start: 10-17-2022 Non-patient / Non-visit Dr. Sunil Pierre Work Phone: [facility] Start: 10-17-2022 End: 10-17-[address] Selene Pierre Work Phone: [facility] Work Phone: Start: 10-17-2022 End: 10-17-[address] Selene Pierre Work Phone: [facility]-Pulmonary Services/Neurology Start: 10-15-2022 End: 10-15-[address] Selene Pierre Work Phone: [facility] Work Phone: Start: 10-15-2022 End: 10-15-[address] Selene Pierre Work Phone: [facility] Scan, [facility] Start: 09-20-2022 Refill Sarah huynh PA-C Work Phone: [facility] Rheumatology and Arthritis Comment on above: Refill Request Start: 09-19-2022 End: 09-19-[address] Selene Pierer Work Phone: [facility] Work Phone: Start: 09-19-2022 End: 09-19-[address] Selene Pierre Work Phone: [facility] Start: 09-12-2022 End: 09-12-[address] Selene Pierre Work Phone: [facility] Start: 09-06-2022 End: 09-06-[address] Selene Pierre Work Phone: [facility] Work Phone: Start: 09-06-2022 End: 09-06-[address] Selene Pierre Work Phone: [facility]-Pulmonary Services/Neurology Start: 09-05-2022 Telephone encounter Selene brooke MD Work Phone: [facility] [place] Comment on above: Medical Attestation forms Start: 09-03-2022 Orders Only Jennifer mcduffie MD Work Phone: [facility] Rheumatology [facility] Arthritis Start: 08-15-2022 End: 08-15-[address] Selene Pierre Work Phone: [facility] Start: 08-14-2022 End: 08-14-2022 ambulatory Chair 1 [facility] Hematology/Oncology Comment on above: Other osteoporosis w ith current pathological fracture with malunion, subsequent encounter (Primary Dx); Rheumatoid arthritis involving multiple sites with positive rheumatoid factor (HCC); Rheumatoid arthritis involving multiple sites, unspecified whether rheumatoid factor present (HCC) Refill Request Start: 08-09-2022 Orders Only Jennifer mcduffie MD Work Phone: [facility] Arthritis & Rheumatology Start: 08-08-2022 Orders Only Jennifer mcduffie MD Work Phone: [facility] Arthritis & Rheumatology Start: 08-02-2022 End: 08-02-2022 Patient encounter procedure Leilani Colmenares APRN.QUAL FIELD MANAGER Work Phone: [facility] Comment on above: Chronic [...] Orders Only Jennifer mcduffie MD Work Phone: [facility] Rheumatology and Arthritis Start: 07-13-2022 End: 07-13-[address] Selene Pierre Work Phone: [facility] Start: 07-10-2022 End: 07-10-2022 Subsequent hospital visit by physician Bone Density [facility] Work Phone: Radiology Comment on above: Localized osteoporos is without current pathological fracture [M81.6] Start: 06-26-2022 End: 06-26-2022 Subsequent hospital visit by physician Xr [place] [facility] Comment on above: Pain in left hip [M2 5.552] Start: 06-26-2022 End: 06-26-2022 Patient encounter procedure Sarah Pearson PA-C Work Phone: [facility] Rheumatology and Arthritis Comment on above: Localized osteoporos is without current pathological fracture (Primary Dx); Pain in left hip; Fall, initial encounter; Rash and nonspecific skin eruption; Rheumatoid arthritis involving multiple sites with positive rheumatoid factor (HCC); High risk medication use; Vitamin D deficiency Start: 06-15-2022 Refill Sarah huynh PA-C Work Phone: [facility] Rheumatology and Arthritis Comment on above: Refill Request Start: 06-11-2022 Refill Jacek Mitchell MD Work Phone: [facility] Comment on above: Refill Request Start: 05-30-2022 Orders Only Jennifer mcduffie MD Work Phone: [facility] Rheumatology and Arthritis Start: 05-29-2022 Orders Only Jennifer mcduffie MD Work Phone: [facility] Rheumatology and Arthritis Start: 05-17-2022 Telephone encounter Geronimo hedrick PUNCHING MACHINE OPERATOR.QUAL FIELD MANAGER Work Phone: [facility] Comment on above: Results Start: 05-17-2022 End: 05-17-2022 ambulatory Carol Mathews PUNCHING MACHINE OPERATOR.QUAL FIELD MANAGER Work Phone: [facility] [place] Comment on above: COVID (Primary Dx) Start: 05-17-2022 End: 05-17-2022 Telemedicine consultation with patient Carol Reid NUNEZQUAL FIELD MANAGER Work Phone: [facility] Start: 05-16-2022 End: 05-16-2022 Patient encounter procedure Sarah De Luna PUNCHING MACHINE OPERATOR.QUAL FIELD MANAGER Work Phone: [facility] Comment on [...] Orders Only Jennifer mcduffie MD Work Phone: [facility] Rheumatology and Arthritis Start: 04-18-2022 Refill Sarah huynh PA-C Work Phone: [facility] Rheumatology and Arthritis Comment on above: Refill Request Start: 04-13-2022 Refill Sarah huynh PA-C Work Phone: [facility] Rheumatology and Arthritis Comment on above: Refill Request Start: 04-05-2022 End: 04-05-2022 ambulatory Bed 1 [facility] Work Phone: Hematology/Oncology Comment on above: Other osteoporosis w ith current pathological fracture with malunion, subsequent encounter (Primary Dx); Rheumatoid arthritis involving multiple sites with positive rheumatoid factor ([facility]); Rheumatoid arthritis involving multiple sites, unspecified whether rheumatoid factor present ([facility]) Start: 03-29-2022 End: 03-29-2022 Patient encounter procedure BELLA GILLESPIE MD [facility] Start: 03-27-2022 Telephone encounter Leilani harris PUNCHING MACHINE OPERATOR.QUAL FIELD MANAGER Work Phone: [facility] [place] Comment on above: Future Appointment Start: 03-22-2022 Telephone encounter Leilani harris APRN.QUAL FIELD MANAGER Work Phone: [facility] Comment on above: Appointment Start: 03-19-2022 End: 03-19-2022 Patient encounter procedure BELLA GILLESPIE MD [facility] Start: 03-12-2022 Refill Jennifer mcduffie MD Work Phone: [facility] Rheumatology and Arthritis Comment on above: [...] Telephone encounter Jacek Mitchell MD Work Phone: [facility] Comment on above: Injections ([place]) Future Appointment ( [place]) Lumbar spondylosis ( Primary Dx) Start: 02-01-2022 End: 02-01-2022 Patient encounter procedure Leilani Colmenares PUNCHING MACHINE OPERATOR.QUAL FIELD MANAGER Work Phone: [facility] Comment on above: Lumbar spondylosis ( Primary Dx); Chronic bilateral low back pain without sciatica; Myofascial pain; Fibromyalgia Start: 01-30-2022 End: 01-30-2022 ambulatory Sarah Pearson PA-C Work Phone: [facility] Rheumatology and Arthritis Comment on above: Vitamin D deficiency ; Rheumatoid arthritis involving multiple sites with positive rheumatoid factor (HCC) Start: 01-30-2022 End: 01-30-2022 Telemedicine consultation with patient Sarah Pearson PA-C Work Phone: [facility] Start: 01-24-2022 ambulatory Selene Roberson Work Phone: [facility] [place] Start: 01-23-2022 Orders Only Jennifer mcduffie MD Work Phone: [facility] Rheumatology and Arthritis Start: 01-18-2022 Refill Sarah huynh PA-C Work Phone: [facility] Rheumatology and Arthritis Comment on above: Refill Request Start: 01-18-2022 Refill Carol Mathews PUNCHING MACHINE OPERATOR .QUAL FIELD MANAGER Work Phone: [facility] [place] Comment on above: Refill Request Start: 01-08-2022 Refill Carol Mathews PUNCHING MACHINE OPERATOR .QUAL FIELD MANAGER Work Phone: [facility] [place] Comment on above: Refill Request Start: 01-04-2022 Telephone encounter Jennifer miranda MD Work Phone: [facility] Arthritis & Rheumatology Comment on above: APPROVED (Reclast AP PROVED [id number] 01.25.2022 - 01.25.2023 per [facility] medicare Portal) Start: 12-28-2021 End: 12-28-[address] [facility] [place] Work Phone: Hematology/Oncology Comment on above: Other osteoporosis w ith current pathological fracture with malunion, subsequent encounter (Primary Dx); Rheumatoid arthritis involving multiple sites with positive rheumatoid factor (HCC); Rheumatoid arthritis involving multiple sites, unspecified whether rheumatoid factor present (HCC) Start: 12-22-2021 Orders Only Sarah huynh PA-C Work Phone: [facility] Arthritis & Rheumatology Start: 11-30-2021 End: 11-30-[address] [facility] [place] Hematology/Oncology Comment on above: Other osteoporosis w ith current pathological fracture with malunion, subsequent encounter (Primary Dx); Rheumatoid arthritis involving multiple sites with positive rheumatoid factor (HCC); Rheumatoid arthritis involving multiple sites, unspecified whether rheumatoid factor present (HCC) Start: 11-27-2021 Orders Only Jennifer mcduffie MD Work Phone: [facility] Rheumatology and Arthritis Start: 11-19-2021 Refill Carol Mathews APRN, .CNP Work Phone: [facility] [place] Comment on above: Refill Request Start: 11-02-2021 End: 11-02-[address] [facility] [place] Work Phone: Hematology/Oncology Comment on above: Rheumatoid arthritis involving multiple sites with positive rheumatoid factor (HCC) (Primary Dx); Other osteoporosis with current pathological fracture with malunion, subsequent encounter; Rheumatoid arthritis involving multiple sites, unspecified whether rheumatoid factor present (HCC) Start: 11-01-2021 Telephone encounter Jennifer miranda MD Work Phone: 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, U09.9] Start: 04-19-2021 ambulatory Selene Roberson Work Phone: [facility] [place] Comment on above: Vomiting Start: 02-08-2021 End: 02-08-2021 Subsequent hospital visit by physician Xr [facility] [place] [facility] Comment on above: Right knee pain, [...] CT of pelvis without contrast Julio Arriaga GEOLOGY ASSOCIATE-C Work Phone: Start: 11-30-2024 Blood count complete auto&auto difrntl wbc Josh A Masci DO Work Phone: Start: 11-16-2024 Blood count complete auto&auto difrntl wbc Josh A Masci DO Work Phone: Start: 11-09-2024 Blood count complete auto&auto difrntl wbc Josh A Masci DO Work Phone: Start: 10-30-2024 Plain x-ray of pelvi s and lower extremity Julio Arriaga GEOLOGY ASSOCIATE-C Work Phone: Start: 10-30-2024 CT of head without contrast Juloi Arriaga GEOLOGY ASSOCIATE-C Work Phone: Start: 10-24-2024 Urnls dip stick/tabl et reagent auto microscopy Julio Arriaga GEOLOGY ASSOCIATE-C Work Phone: Start: 10-24-2024 Estimated creatinine clearance Julio Arriaga GEOLOGY ASSOCIATE-C Work Phone: Start: 10-24-2024 Computed tomography of abdomen and pelvis with intravenous contrast Julio Arriaga GEOLOGY ASSOCIATE-C Work Phone: Start: 10-24-2024 CT angiography of ch est with contrast Julio Arriaga GEOLOGY ASSOCIATE-C Work Phone: Start: 10-24-2024 SARS-CoV-2, Influenz a & RSV (PCR) Julio Arriaga GEOLOGY ASSOCIATE-C Work Phone: Start: 10-12-2024 Blood count complete auto&auto difrntl wbc Josh Bennett DO Work Phone: Start: 10-05-2024 Blood count complete auto&auto difrntl wbc Josh Bennett DO Work Phone: Start: 09-24-2024 CT of pelvis with contrast Julio Arriaga GEOLOGY ASSOCIATE-C Work Phone: Start: 09-24-2024 Estimated creatinine clearance Julio Arriaga GEOLOGY ASSOCIATE-C Work Phone: Start: 09-24-2024 Urnls dip stick/tabl et rgnt auto w/o microscopy Kimmy Dioxn APRN.QUAL FIELD MANAGER Work Phone: Start: 09-24-2024 Blood culture Julio Arriaga GEOLOGY ASSOCIATE-C Work Phone: Start: 09-23-2024 Mri pelvis w/o & w/c ontrast material Josh Bennett DO Work Phone: Start: 09-23-2024 Ct thorax w/contrast material Josh Bennett DO Work Phone: Start: 09-03-2024 Estimated creatinine clearance Julio Arriaga GEOLOGY ASSOCIATE-C Work Phone: Start: 09-03-2024 Measurement of renal function Julio Arriaga GEOLOGY ASSOCIATE-C Work Phone: Comment on above: GFR Calc Start: 09-02-2024 SARS-CoV-2, Influenz a & RSV (PCR) Julio Arriaga GEOLOGY ASSOCIATE-C Work Phone: Start: 09-02-2024 Urnls dip stick/tabl et reagent auto microscopy Julio Arriaga GEOLOGY ASSOCIATE-C Work Phone: Start: 09-02-2024 Computed tomography of abdomen and pelvis with intravenous contrast Julio Arriaga GEOLOGY ASSOCIATE-C Work Phone: Start: 09-02-2024 X-ray of chest, PA a nd lateral views Julio Arriaga GEOLOGY ASSOCIATE-C Work Phone: Start: 05-21-2024 Blood count complete auto&auto difrntl wbc Tracy Broadwater PA-C Work Phone: Start: 01-29-2024 Blood count complete auto&auto difrntl wbc Tracy Broadwater PA-C Work Phone: Start: 11-20-2023 Blood count complete auto&auto difrntl wbc Tracy Broadwater PA-C Work Phone: Start: 11-20-2023 C-reactive protein Daniele Arias MD Work Phone: Start: 10-19-2023 X-ray of unilateral ribs, two views without x-ray of chest GEOLOGY ASSOCIATE-C Julio Arriaga GEOLOGY ASSOCIATE Work Phone: Start: 10-19-2023 CT of head without contrast GEOLOGY ASSOCIATE-C Julio Arriaga GEOLOGY ASSOCIATE Work Phone: Start: 09-18-2023 Radiologic examinati on of knee GEOLOGY ASSOCIATE-C Julio Arriaga GEOLOGY ASSOCIATE Work Phone: Start: 09-06-2023 Ova OR parasites identification GEOLOGY ASSOCIATE-C Julio Arriaga GEOLOGY ASSOCIATE Work Phone: Start: 07-25-2023 MRI of small intestine GEOLOGY ASSOCIATE-C Julio Arriaga GEOLOGY ASSOCIATE Work Phone: Start: 04-25-2023 CREATININE BLD Jennifer [...] DTaP,Tdap,Td Vaccine (3 - Td or Tdap) [facility] Start: 02-02-2028 Diabetes Screening Diabetes Screening [facility] Start: 01-15-2028 Diabetes Screening Diabetes Screening [facility] Start: 12-01-2027 Diabetes Screening Diabetes Screening [facility] Start: 11-24-2027 Diabetes Screening Diabetes Screening [facility] Start: 11-17-2027 Diabetes Screening Diabetes Screening [facility] Start: 11-10-2027 Diabetes Screening Diabetes Screening [facility] Start: 10-31-2027 Diabetes Screening Diabetes Screening [facility] Start: 10-20-2027 Diabetes Screening Diabetes Screening [facility] Start: 10-06-2027 Diabetes Screening Diabetes Screening [facility] Start: 09-23-2027 Colonoscopy COLONOSCOPY [facility] Start: 09-23-2027 COLORECTAL CANCER SCREENING COLORECTAL CANCER SCREENING [facility] Start: 09-23-2027 Screening for malignant neoplasm of colon [facility] Start: 09-16-2027 Diabetes Screening Diabetes Screening [facility] Start: 05-21-2027 Diabetes Screening Diabetes Screening [facility] Start: 01-28-2027 Diabetes Screening Diabetes Screening [facility] Start: 11-19-2026 Diabetes Screening Diabetes Screening [facility] Start: 08-20-2026 Screening for osteoporosis Bone Density Screening [facility] Start: 07-31-2026 Diabetes Screening Diabetes Screening [facility] Start: 04-25-2026 Diabetes Screening Diabetes Screening [facility] Start: 11-30-2025 BP Controlled (<130/80) BP Controlled (<130/80) [facility] Start: 10-30-2025 BP Controlled (<130/80) BP Controlled (<130/80) [facility] Start: 10-18-2025 DIABETES SCREEN DIABETES SCREEN [facility] Start: 10-18-2025 Diabetes Screening Diabetes Screening [facility] Start: 10-13-2025 BP Controlled (<130/80) BP Controlled (<130/80) [facility] Start: 10-04-2025 End: 10-04-2025 Patient encounter procedure 10/04/2025 8:00 AM EDT Office Visit OB/Gynecology [address] [place] [address] Juan José Cheema MD [address] [place] [address] Annual OB/Gynecology Comment on above: Annual Start: 09-30-2025 BP Controlled (<130/80) BP Controlled (<130/80) [facility] Start: 09-30-2025 Screening for malignant neoplasm of breast Mammogram Screening [facility] Start: 09-30-2025 Screening for malignant neoplasm of cervix Cervical Cancer Screening [facility] Start: 09-27-2025 End: 09-27-2025 ambulatory 09/27/2025 10:50 AM EST Visit (SP) Office Hematology/Oncology [address] [place] [address] Josh Benentt, [address] [place] [address] 6MO OV/LABS AND CT 09/20* Hematology/Oncology Comment on above: 6MO OV/LABS AND CT 09/20* Start: 09-23-2025 Screening for malignant neoplasm of lung Lung Cancer Screening [facility] Start: 09-20-2025 End: 09-20-2025 Patient encounter procedure Cat Scan Comment on above: Malignant neoplasm of anus (HCC) [C21.0] Start: 09-20-2025 End: 09-20-2025 ambulatory 09/20/2025 10:00 AM [facility] Infusion Center Hematology/Oncology [address] [place] [address] Wstr, Lab/[place] [facility] [address] [place] [address] CBC/CMP(PORT)LEAVE OPEN FOR ACCESS FOR IMAGING Hematology/Oncology Comment on above: CBC/CMP(PORT)LEAVE OPEN FOR ACCESS FOR I MAGING Start: 09-02-2025 BP Controlled (<130/80) BP Controlled (<130/80) [facility] Start: 07-17-2025 DIABETES SCREEN DIABETES SCREEN [facility] Start: 06-15-2025 BP Controlled (<130/80) BP Controlled (<130/80) [facility] Start: 05-13-2025 End: 05-13-2025 ambulatory 05/13/2025 11:00 AM [facility] Infusion Center Hematology/Oncology [address] [place] [address] 2ND Hematology/Oncology Comment on above: 2ND Start: 05-03-2025 End: 05-03-2025 Patient encounter procedure 05/03/2025 10:30 AM [facility] Infusion Center [facility] [address] [place] [address] /// relcast [facility] Comment on above: /// relcast Start: 04-15-2025 End: 04-15-2025 ambulatory 04/15/2025 11:00 AM EDT Infusion Center Hematology/Oncology [address] [place] [address] 2ND Hematology/Oncology Comment on above: 2ND Start: 03-29-2025 Influenza vaccination [facility] Start: 03-19-2025 End: 03-19-2025 ambulatory 03/19/2025 11:20 AM EDT Visit (SP) Office Hematology/Oncology [address] [place] [address] Josh Bennett DO [address] [place] [address] OV BX AT [facility]* Hematology/Oncology Comment on above: BX AT [facility]* Start: 03-18-2025 End: 03-18-2025 ambulatory 03/18/2025 10:30 AM EDT Infusion Center Hematology/Oncology [address] [place] [address] 2ND Hematology/Oncology Comment on above: 2ND Start: 03-05-2025 DIABETES SCREEN DIABETES SCREEN [facility] Start: 03-02-2025 Sigmoidoscopy flx w/biopsy single/multiple SIGMOIDOSCOPY AND BIOPSY [facility] Start: 03-02-2025 Patient discharge [facility] Start: 02-27-2025 [facility] Start: 02-18-2025 End: 02-18-2025 ambulatory Hematology/Oncology Comment on above: 2ND pt requested date/ti me Start: 02-04-2025 End: 02-04-2025 ambulatory 02/04/2025 10:00 AM EDT Infusion Center Hematology/Oncology [address] [place] [address] 2ND Hematology/Oncology Comment on above: 2ND Start: 02-01-2025 End: 02-01-2025 Patient encounter procedure 02/01/2025 11:00 AM EDT Appointment Radiology [address] [place] [id number] Malignant neoplasm of anus (HCC) [C21.0] Radiology Comment on above: Malignant neoplasm of anus (HCC) [C21.0] Start: 02-01-2025 End: 02-01-2025 ambulatory 02/01/2025 10:45 AM EDT Infusion Center Hematology/Oncology [address] [place] [address] Wstr, Lab/[place] [facility] [address] [place] [address] CBC/CMP(PORT)/ACCESS FOR MRI TODAY* Hematology/Oncology Comment on above: CBC/CMP(PORT)/ACCESS FOR MRI TODAY* Start: 01-14-2025 End: 04-15-2025 25-hydroxyvitamin D3 [Mass/volume] in Serum or Plasma [facility] Comment on above: Expected: 01/14/2025, Expires: Start: 01-14-2025 End: 04-15-2025 C reactive protein [Mass/volume] in Serum or Plasma [facility] Comment on above: Expected: 01/14/2025, Expires: Start: 01-14-2025 End: 04-15-2025 Cobalamin (Vitamin B12) [Mass/volume] in Serum or Plasma [facility] Comment on above: Expected: 01/14/2025, Expires: Start: 01-14-2025 End: 04-15-2025 Hepatitis B virus core Ab [Presence] in Serum [facility] Comment on above: Expected: 01/14/2025, Expires: Start: 01-14-2025 End: 04-15-2025 Hepatitis B virus surface Ab [Presence] in Serum [facility] Comment on above: Expected: 01/14/2025, Expires: Start: 01-14-2025 End: 04-15-2025 Hepatitis B virus surface Ag [Presence] in Serum [facility] Comment on above: Expected: 01/14/2025, Expires: Start: 01-07-2025 End: 01-07-2025 ambulatory 01/07/2025 10:30 AM EDT Infusion Center Hematology/Oncology [address] [place] [address] 2ND Hematology/Oncology Comment on above: 2ND Start: 12-27-2024 [facility] Start: 12-11-2024 End: 12-11-2024 ambulatory 12/11/2024 10:30 AM EDT Infusion Center Hematology/Oncology [address] [place] [address] 2ND Hematology/Oncology Comment on above: 2ND Start: 12-10-2024 End: 12-10-2024 ambulatory 12/10/2024 11:00 AM EDT [facility] Center Hematology/Oncology [address] [place] [address] RECLAST/Oder Per JENNIFER Garcia* Hematology/Oncology Comment on above: RECLAST/Oder Per JENNIFER Garcia* Start: 12-07-2024 End: 12-07-2024 Follow-up encounter 12/07/2024 11:30 AM EDT [facility] Radiation Oncology [address] [place] [address] Sidney Joya MD [address] [place] [address] 4WK FOLLOW UP Radiation Oncology Comment on above: 4WK FOLLOW UP Start: 11-30-2024 End: 11-30-2024 Patient encounter procedure 11/30/2024 12:00 PM EDT [facility] Pep General Rheumatology and Arthritis [address] [facility] [address] [place], [place] [id number] Jennifer Arias MD [address] [facility] [address] [place] [address] 2mth f/up [facility] Pep General Rheumatology and Arthritis Comment on above: 2mth f/up Start: 11-30-2024 End: 11-30-2024 ambulatory Hematology/Oncology Comment on above: QWK CBC(PICC)DRESSING CHANGE* WK8 OV/(PICC)LAB EAR LY* QWK(SO)CBC(PICC)DRES SING CHANGE* 8WK OV(PICC)LAB ERROL Y* QWK(SO)CBC(PORT)OV T SHIRLEY* 8WK OV(PORT)LAB ERROL Y* Start: 11-27-2024 End: 11-27-2024 ambulatory 11/27/2024 10:00 AM EDT Infusion Center Hematology/Oncology [address] [place] [address] Wstr, Lab/[place] c [address] [place] [address] PICC DRESSING CHANGE* Hematology/Oncology Comment on above: PICC DRESSING CHANGE* Start: 11-23-2024 End: 11-23-2024 ambulatory Hematology/Oncology Comment on above: QWK CBC(PICC)DRESSING CHANGE* QWK(SO)CBC(PICC)DRES SING CHANGE* QWK(SO)CBC(PORT)* Start: 11-20-2024 End: 11-20-2024 ambulatory 11/20/2024 10:00 AM EDT Infusion Center Hematology/Oncology [address] [place] [address] Wstr, Lab/[place] [facility] [address] [place] [address] PICC DRESSING CHANGE* Hematology/Oncology Comment on above: PICC DRESSING CHANGE* Start: 11-16-2024 End: 11-16-2024 ambulatory Hematology/Oncology Comment on above: QWK CBC(PICC)DRESSING CHANGE* QWK(SO)CBC(PICC)DRES SING CHANGE* QWK(SO)CBC(PORT)* Start: 11-16-2024 End: 11-16-2024 Patient encounter procedure 11/16/2024 9:30 AM EDT Appointment Radiation Oncology [address] [place] [address] CON CHEMO Radiation Oncology Comment on above: CON CHEMO Start: 11-13-2024 End: 11-13-2024 ambulatory 11/13/2024 10:00 AM EDT Infusion Center Hematology/Oncology [address] [place] [address] Wstr, Lab/[place] [facility] [address] [place] [address] PICC DRESSING CHANGE* Hematology/Oncology Comment on above: PICC DRESSING CHANGE* Start: 11-13-2024 End: 11-13-2024 Patient encounter procedure 11/13/2024 9:30 AM EDT Appointment Radiation Oncology [address] [place] [address] CON CHEMO Radiation Oncology Comment on above: CON CHEMO Start: 11-12-2024 End: 11-12-2024 Patient encounter procedure 11/12/2024 9:30 AM EDT Appointment Radiation Oncology [address] [place] [address] CON CHEMO Radiation Oncology Comment on above: CON CHEMO Start: 11-11-2024 End: 11-11-2024 Patient encounter procedure 11/11/2024 9:30 AM EDT Appointment Radiation Oncology [address] [place] [address] CON CHEMO Radiation Oncology Comment on above: [...] Radiation Oncology [address] [place] [address] CON CHEMO Radiation Oncology Comment on above: CON CHEMO Start: 11-06-2024 End: 11-06-2024 ambulatory 11/06/2024 4:00 PM EDT Infusion Center Hematology/Oncology [address] [place] [address] Wstr, Lab/[place] [facility] [address] [place] [address] D5 DC CADD* Hematology/Oncology Comment on above: D5 DC CADD* Start: 11-06-2024 End: 11-06-2024 Patient encounter procedure 11/06/2024 9:30 AM EDT Appointment Radiation Oncology [address] [place] [address] CON CHEMO Radiation Oncology Comment on above: CON CHEMO Start: 11-05-2024 End: 11-05-2024 Patient encounter procedure OB/Gynecology Comment on above: Comment: General exam/PAP smear CON CHEMO Start: 11-04-2024 End: 11-04-2024 Patient encounter procedure 11/04/2024 9:30 AM EDT Appointment Radiation Oncology [address] [place] [address] CON CHEMO Radiation Oncology Comment on above: CON CHEMO Start: 11-03-2024 End: 11-03-2024 Patient encounter procedure Radiation Oncology Comment on above: CON CHEMO Location: W-ON TREAT MENT VISIT Start: 11-02-2024 DIABETES SCREEN DIABETES SCREEN [facility] Start: 11-02-2024 End: 11-02-2024 ambulatory Hematology/Oncology Comment on above: CBC/CMP(PICC)D29 MITOMYCIN/5FU/LAB EARLY /XRT/AUTH EXP?* (SO)CBC/CMP(S)(PICC) /D29 MITOMYCIN/5FU/XRT/AUTH EXP?* (SO)CBC/CMP(S)(PICC) /D29 5FU/XRT* (SO)CBC/CMP(S)(PORT) /D29 5FU/XRT* Start: 11-02-2024 End: 11-02-2024 Patient encounter procedure 11/02/2024 9:30 AM EDT Appointment Radiation Oncology [address] [place] [address] CON CHEMO Radiation Oncology Comment on above: CON CHEMO Start: 10-30-2024 End: 10-30-2024 Admission to same day surgery center 10/30/2024 1:00 PM EDT - 10/30/2024 2:30 PM EDT Surgery [facility] Radiology Procedure [id number] [facility] [place] [address] Ortega Cardenas MD [address] [place] [address] INSERTION PORT VENOUS ACCESS ADULT [facility] Radiology Procedure Comment on above: INSERTION PORT VENOUS ACCESS ADULT Start: 10-30-2024 End: 10-30-2024 Insj tunneled ctr vad w/subq port age 4 yr/> AV IR Start: 10-30-2024 Subsequent hospital visit by physician 10/30/2024 1:00 PM EDT Hospital Encounter [facility] Radiology Procedure [id number] [facility] [place] [place] [address] Ortega Cardenas MD [address] [place] [address] Anal cancer (HCC) [C21.0] [facility] Radiology Procedure Comment on above: Anal cancer (HCC) [C21.0] Start: 10-30-2024 End: 10-30-2024 Patient encounter procedure 10/30/2024 9:30 AM EDT Appointment Radiation Oncology [address] [place] [address] CON CHEMO Radiation Oncology Comment on above: CON CHEMO Start: 10-30-2024 End: 10-30-2024 ambulatory Hematology/Oncology Comment on above: PICC DRESSING CHANGE* CBC/CMP(PICC)* LAB EARLY(PICC)/OV-P er nursing staff phone note 10/21* (SO)CBC/CMP(S)(PICC) * Start: 10-30-2024 [facility] Start: 10-29-2024 End: 10-29-2024 Patient encounter procedure 10/29/2024 9:30 AM EDT Appointment Radiation Oncology [address] [place] [address] CON CHEMO Radiation Oncology Comment on above: CON CHEMO Start: 10-28-2024 End: 10-28-2024 Patient encounter procedure 10/28/2024 9:30 AM EDT Appointment Radiation Oncology [address] [place] [address] CON CHEMO Radiation Oncology Comment on above: CON CHEMO Start: 10-27-2024 End: 10-27-2024 Patient encounter procedure Radiation Oncology Comment on above: CON CHEMO Location: W-ON TREAT MENT VISIT Start: 10-26-2024 End: 10-26-2024 ambulatory Hematology/Oncology Comment on above: QWK CBC(PICC)DRESSING CHANGE* WK3 OV/(PICC)LAB EAR LY* QWK(SO)CBC(PICC)DRES SING CHANGE* 3WK OV(PICC)LAB ERROL Y* Start: 10-26-2024 End: 10-26-2024 ambulatory 10/26/2024 9:45 AM EDT Results Only [place] [facility] Laboratory [address] [place] [address] CBC - No PICC-it is being put in again 10/29/24 [facility] Laboratory Comment on above: CBC - No PICC-it is being put in again Start: 10-26-2024 End: 10-26-2024 Patient encounter procedure 10/26/2024 9:30 AM EDT Appointment Radiation Oncology [address] [place] [address] CON CHEMO Radiation Oncology Comment on above: CON CHEMO Start: 10-25-2024 [facility] Start: 10-24-2024 [facility] Start: 10-23-2024 End: 10-23-2024 ambulatory 10/23/2024 10:00 AM EDT Infusion Center Hematology/Oncology [address] [place] [address] Wstr, Lab/[place] [facility] [address] [place] [address] PICC DRESSING CHANGE* Hematology/Oncology Comment on above: PICC DRESSING CHANGE* Start: 10-23-2024 End: 10-23-2024 Patient encounter procedure 10/23/2024 9:30 AM EDT Appointment Radiation Oncology [address] [place] [address] CON CHEMO Radiation Oncology Comment on above: CON CHEMO Start: 10-22-2024 End: 10-22-2024 Patient encounter procedure 10/22/2024 9:30 AM EDT Appointment Radiation Oncology [address] [place] [address] CON CHEMO Radiation Oncology Comment on above: CON CHEMO Start: 10-21-2024 End: 10-21-2024 Patient encounter procedure 10/21/2024 9:30 AM EDT Appointment Radiation Oncology [address] [place] [address] CON CHEMO Radiation Oncology Comment on above: CON CHEMO Start: 10-20-2024 End: 10-20-2024 Patient encounter procedure Radiation Oncology Comment on above: CON CHEMO Location: W-ON TREAT MENT VISIT Start: 10-19-2024 End: 10-19-2024 ambulatory Hematology/Oncology Comment on above: QWK CBC(PICC)DRESSING CHANGE* QWK(SO)CBC(PICC)DRES SING CHANGE* Start: 10-19-2024 End: 10-19-2024 Patient encounter procedure 10/19/2024 9:30 AM EDT Appointment Radiation Oncology [address] [place] [address] CON CHEMO Radiation Oncology Comment on above: CON CHEMO Start: 10-16-2024 End: 10-16-2024 ambulatory 10/16/2024 10:00 AM EDT Infusion Center Hematology/Oncology [address] [place] [address] Wstr, Lab/[place] [facility] [address] [place] [address] PICC DRESSING CHANGE* Hematology/Oncology Comment on above: PICC DRESSING CHANGE* Start: 10-16-2024 End: 10-16-2024 Patient encounter procedure 10/16/2024 9:30 AM EDT Appointment Radiation Oncology [address] [place] [address] CON CHEMO Radiation Oncology Comment on above: CON CHEMO Start: 10-15-2024 End: 10-15-2024 Patient encounter procedure 10/15/2024 9:30 AM EDT Appointment Radiation Oncology [address] [place] [address] CON CHEMO Radiation Oncology Comment on above: CON CHEMO Start: 10-14-2024 End: 10-14-2024 Patient encounter procedure 10/14/2024 9:30 AM EDT Appointment Radiation Oncology [address] [place] [address] CON CHEMO Radiation Oncology Comment on above: CON CHEMO Start: 10-13-2024 End: 10-13-2024 Patient encounter procedure Radiation Oncology Comment on above: CON CHEMO Location: W-ON TREAT MENT VISIT Start: 10-12-2024 End: 10-12-2024 ambulatory Hematology/Oncology Comment on above: QWK CBC(PICC)DRESSING CHANGE* QWK(SO)CBC(PICC)DRES SING CHANGE* QWK(SO)CBC(PICC) Start: 10-12-2024 End: 10-12-2024 Patient encounter procedure 10/12/2024 9:30 AM EDT Appointment Radiation Oncology [address] [place] [address] CON CHEMO Radiation Oncology Comment on above: CON CHEMO Start: 10-09-2024 End: 10-09-2024 ambulatory Hematology/Oncology Comment on above: D5 DC CADD* PICC DRESSING CHANGE D5 DC CADD* Start: 10-09-2024 End: 10-09-2024 Patient encounter procedure 10/09/2024 9:30 AM EDT Appointment Radiation Oncology [address] [place] [address] CON CHEMO Radiation Oncology Comment on above: CON CHEMO Start: 10-08-2024 End: 10-08-2024 Patient encounter procedure 10/08/2024 9:30 AM EDT Appointment Radiation Oncology [address] [place] [address] CON CHEMO Radiation Oncology Comment on above: CON CHEMO Start: 10-07-2024 End: 10-07-2024 Patient encounter procedure 10/07/2024 9:30 AM EDT Appointment Radiation Oncology [address] [place] [address] CON CHEMO Radiation Oncology Comment on above: CON CHEMO Start: 10-06-2024 End: 10-06-2024 Patient encounter procedure 10/06/2024 11:30 AM EDT Appointment Radiation Oncology [address] [place] [address] Sidney Joya MD [address] [place] [address] conc chemo Radiation Oncology Comment on above: conc chemo Start: 10-06-2024 End: 10-06-2024 Patient encounter procedure Radiation Oncology Comment on above: CON CHEMO Location: W-ON TREAT MENT VISIT Start: 10-06-2024 End: 10-06-2024 ambulatory 10/06/2024 8:45 AM EDT Results Only [place] [facility] Laboratory [address] [place] [address] [place] [facility] Start: 10-05-2024 End: 10-05-2024 Patient encounter procedure 10/05/2024 11:00 AM EDT Appointment Radiation Oncology [address] [place], [place] [address] Sidney Joya MD [address] [place] [id number] CON CHEMO AT 915 WANTS 10 Radiation [...] Office Visit OB/Gynecology [address] [place], [place] [id number] Juan José Cheema MD [address] [place], [place] [address] Comment: General exam/PAP smear OB/Gynecology Comment on above: Comment: General exam/PAP smear Start: 09-30-2024 End: 09-30-2024 Patient encounter procedure 09/30/2024 9:10 AM EST Office Visit OB/Gynecology [address] [place] [address] Juan José Cheema MD [address] [place] [address] Comment: General exam/PAP smear-Okay to take this spot per Dr. Cheema OB/Gynecology Comment on above: Comment: General exam/PAP smear-Okay to take this spot per Dr. Cheema Start: 09-29-2024 End: 09-29-2024 Nursing evaluation of patient and report 09/29/2024 1:30 PM EST Nurse Visit Radiation Oncology [address] [place] [address] Wstr, Nurse Radt [facility] [address] [place] [id number] consent at 1245 Radiation Oncology Comment on above: consent at 1245 Start: 09-29-2024 End: 09-29-2024 Patient encounter procedure [facility] General Rheumatology and Arthritis Comment on above: 4 mo f/up post Sarah. pe consent at 1245. ful l bladder. conc chemo. marker? Start: 09-25-2024 End: 09-25-2024 ambulatory 09/25/2024 1:30 PM EST [facility] Center Hematology/Oncology [address] [place] [address] Wstr, Returned Goods Inspector [facility] [address] [place] [address] CHEMO EDUCATION - ? Hematology/Oncology Comment on above: CHEMO EDUCATION - ? Start: 09-24-2024 End: 09-25-2024 [facility] Start: 09-23-2024 End: 09-23-2024 Patient encounter procedure 09/23/2024 3:20 PM EST Appointment Cat Scan [address] [place] [id number] Dx: Anal cancer (HCC) [C21.0] Cat Scan Comment on above: Dx: Anal cancer (HCC) [C21.0] Start: 09-23-2024 Subsequent hospital visit by physician 09/23/2024 2:30 PM EST Hospital Encounter Radiology [address] [place], [place] [address] Anal cancer (HCC) [C21.0] Radiology Comment on above: Anal cancer (HCC) [C21.0] Start: 09-23-2024 End: 09-23-2024 Patient encounter procedure Radiology Comment on above: Dx: Anal cancer (HCC) [C21.0] Start: 09-18-2024 End: 09-18-2024 Patient encounter procedure 09/18/2024 10:00 AM EST Office Visit [facility] General Rheumatology and Arthritis [address] [facility] [address] [place], [place] [id number] Jennifer Arias MD [address] [facility] [address] [place], [place] [id number] 4 mo f/up post Sarah. pe [facility] General Rheumatology and Arthritis Comment on above: 4 mo f/up post Sarah. pe Start: 09-17-2024 End: 09-17-2024 Patient encounter procedure 09/17/2024 10:30 AM EST Office Visit Radiation Oncology [address] [place], [place] [id number] Sidney Joya MD [address] [place] [address] Anal cancer (HCC) [C21.0] Radiation Oncology Comment on above: Anal cancer (HCC) [C21.0] Start: 09-15-2024 End: 09-15-2024 ambulatory 09/15/2024 3:00 PM EST Visit (SP) Office Hematology/Oncology [address] [place] [address] Josh Bennett DO [address] [place] [address] Patient requested this date/time-EST COMPLEX, SEEN HERE [...] (HCC) Expected: 09/15/2024, Expires: 12/15/2024 [facility] Work Phone: Comment on above: Expected: 09/15/2024, Expires: Start: 09-15-2024 End: 12-15-2024 DPYD/UGT1A1 GENOTYPING PANEL DPYD/UGT1A1 GENOTYPING PANEL Lab Routine Anal cancer (HCC) Expected: 09/15/2024, Expires: 12/15/2024 [facility] Comment on above: Expected: 09/15/2024, Expires: Start: 09-15-2024 End: 12-15-2024 HIV 1+2 Ab [Presence] in Serum or Plasma by Immunoassay HIV 1/2 COMBO WITH REFLEX TO DIFFERENTIATION Lab Routine Anal cancer (HCC) Expected: 09/15/2024, Expires: 12/15/2024 [facility] Comment on above: Expected: 09/15/2024, Expires: Start: 09-03-2024 Patient discharge [facility] Start: 09-03-2024 [facility] Start: 09-02-2024 End: 09-03-2024 [facility] Start: 09-02-2024 Following clinical pathway protocol [facility] Start: 09-02-2024 Ambulation without limitation [facility] Start: 09-02-2024 Assessment of risk of venous thromboembolism [facility] Start: 09-02-2024 Catheterization of vein [facility] Start: 09-02-2024 Insertion of catheter into peripheral vein [facility] Start: 09-02-2024 Measuring intake and output [facility] Start: 09-02-2024 Providing care according to standard [facility] Start: 09-02-2024 Admission procedure [facility] Start: 09-02-2024 Anesthesia anorectal procedure ANESTH ANORECTAL SURGERY [facility] Start: 09-02-2024 Anoscopy w/bx single/multiple ANOSCOPY AND BIOPSY [facility] Start: 09-02-2024 I&d intramural im/absc transanal anes INCISION OF RECTAL ABSCESS [facility] Start: 09-02-2024 Patient referral to dietitian [facility] Start: 09-02-2024 [facility] Start: 08-20-2024 End: 08-20-2024 Patient encounter procedure [facility] Comment on above: *orencia Q4wks Osteoporosis, unspec ified osteoporosis type, unspecified pathological fracture presence [M81.0] Start: 08-20-2024 End: 08-20-2024 ambulatory Hematology/Oncology Comment on above: 2 MO OV/LABS 08/17* CBC/IRON STUDIES* Start: 08-19-2024 End: 08-19-2024 ambulatory 08/19/2024 9:30 AM EST Visit (SP) Office Hematology/Oncology [address] [place] [address] Judi Portillo [address] [place] [address] 2 MO OV/LABS 08/17* Hematology/Oncology Comment on above: 2 MO OV/LABS 08/17* Start: 08-17-2024 End: 08-17-2024 ambulatory 08/17/2024 9:00 AM EST Results Only [place] [facility] Laboratory [address] [place] [address] CBC/IRON STUDIES* [facility] Comment on above: CBC/IRON STUDIES* Start: 08-13-2024 End: 08-13-2024 Patient encounter procedure 08/13/2024 1:30 PM EST Infusion Center [facility] [address] [place] [address] *orencia Q4wks + labs 200C [facility] Comment on above: *orencia Q4wks + labs 200C Start: 07-29-2024 Advance Directive Discussion Advance Directive Discussion [facility] Start: 07-29-2024 Medicare Advantage Annual Wellness Visit Medicare Advantage Annual Wellness Visit [facility] Start: 07-23-2024 End: 07-23-2024 Patient encounter procedure 07/23/2024 10:30 AM EST [facility] [address] [place] [address] *orencia Q4wks [facility] Comment on above: *orencia Q4wks Start: 07-16-2024 End: 07-16-2024 Patient encounter procedure 07/16/2024 1:30 PM EST [facility] [address] [place] [address] *orencia Q4wks + labs 200C [facility] Comment on above: *orencia Q4wks + labs 200C Start: 07-15-2024 End: 07-15-2024 Patient encounter procedure 07/15/2024 10:00 AM EST [facility] [address] [place] [address] /// orencia Q4wks [facility] Comment on above: /// orencia Q4wks Start: 07-10-2024 Screening for osteoporosis Bone Density Screening [facility] Start: 07-10-2024 End: 07-10-2024 ambulatory 07/10/2024 10:00 AM EST Infusion Center Hematology/Oncology [address] [place] [address] 2nd Hematology/Oncology Comment on above: 2nd Start: 07-08-2024 End: 07-08-2024 ambulatory 07/08/2024 9:30 AM EST Infusion Center Hematology/Oncology [address] [place] [address] 2nd Hematology/Oncology Comment on above: 2nd Start: 07-06-2024 End: 07-06-2024 ambulatory 07/06/2024 1:30 PM EST Infusion Center Hematology/Oncology [address] [place] [address] 2nd Hematology/Oncology Comment on above: 2nd Start: 07-03-2024 End: 07-03-2024 ambulatory 07/03/2024 10:00 AM EST Infusion Center Hematology/Oncology [address] [place] [address] START IRON SUCROSE/D1-5/AUTH EXP ?* Hematology/Oncology Comment on above: START IRON SUCROSE/D1-5/AUTH EXP ?* Start: 07-02-2024 End: 07-02-2024 ambulatory 07/02/2024 8:30 AM EST Infusion Center Hematology/Oncology [address] [place] [address] 2nd Hematology/Oncology Comment on above: 2nd Start: 07-01-2024 End: 07-01-2024 ambulatory 07/01/2024 10:00 AM EST Infusion Center Hematology/Oncology [address] [place] [address] START IRON SUCROSE/D1-5/AUTH EXP ?* Hematology/Oncology Comment on above: START IRON SUCROSE/D1-5/AUTH EXP ?* Start: 06-29-2024 End: 06-29-2024 ambulatory 06/29/2024 9:00 AM [facility] Infusion Center Hematology/Oncology [address] [place] [address] START IRON SUCROSE/D1-5/AUTH EXP ?* Hematology/Oncology Comment on above: START IRON SUCROSE/D1-5/AUTH EXP ?* Start: 06-26-2024 End: 06-26-2024 ambulatory 06/26/2024 8:30 AM EST Infusion Center Hematology/Oncology [address] [place] [address] START IRON SUCROSE/D1-5/AUTH EXP ?* Hematology/Oncology Comment on above: START IRON SUCROSE/D1-5/AUTH EXP ?* Start: 06-24-2024 End: 06-24-2024 Patient encounter procedure 06/24/2024 10:30 AM EST Infusion Center [facility] [address] [place] [address] *orencia Q4wks [facility] Comment on above: *orencia Q4wks Start: 06-22-2024 End: 06-22-2024 ambulatory 06/22/2024 9:30 AM EST Infusion Center Hematology/Oncology [address] [place] [address] START IRON SUCROSE/D1-5/AUTH EXP ?* Hematology/Oncology Comment on above: START IRON SUCROSE/D1-5/AUTH EXP ?* Start: 06-18-2024 End: 06-18-2024 Patient encounter procedure 06/18/2024 1:30 PM EST Infusion Center [facility] [address] [place] [address] *orencia Q4wks + labs 200C [facility] Comment on above: *orencia Q4wks + labs 200C Start: 06-18-2024 End: 06-18-2024 ambulatory 06/18/2024 10:00 AM EST Infusion Center Hematology/Oncology [address] [place] [address] 2ND Hematology/Oncology Comment on above: 2ND Start: 06-17-2024 End: 06-17-2024 Patient encounter procedure 06/17/2024 10:00 AM EST Infusion Center [facility] [address] [place] [place] [address] /// orencia Q4wks [facility] Comment on above: /// orencia Q4wks Start: 06-15-2024 End: 09-14-2024 Ferritin [Mass/volume] in Serum or Plasma [facility] Comment on above: Expected: 06/15/2024, Expires: Start: 06-15-2024 End: 09-14-2024 Iron and Iron binding capacity panel - Serum or Plasma [facility] Work Phone: Comment on above: Expected: 06/15/2024, Expires: Start: 06-15-2024 End: 06-15-2024 Patient encounter procedure 06/15/2024 1:30 PM EST Visit (SP) Office Hematology/Oncology [address] [place] [address] Josh Bennett DO [address] [address] (First open appointment)GEOLOGY ASSOCIATE/Iron deficiency anemia, unspecified iron deficiency anemia type [D50.9]/Sarah Pearson PA-C* Hematology/Oncology Comment on above: (First open appointment)GEOLOGY ASSOCIATE/Iron deficien cy anemia, unspecified iron deficiency anemia type [D50.9]/Sarah Pearson PA-C* Start: 05-28-2024 End: 05-28-2024 Patient encounter procedure 05/28/2024 10:30 AM EDT Infusion Center [facility] [address] [place] [address] *orencia Q4wks [facility] Comment on above: *orencia Q4wks Start: 05-20-2024 End: 05-20-2024 Patient encounter procedure 05/20/2024 10:00 AM EDT Infusion Center [facility] [address] [place] [address] /// orencia Q4wks [facility] Comment on above: /// orencia Q4wks Start: 05-19-2024 DIABETES SCREEN DIABETES SCREEN [facility] Start: 05-14-2024 End: 05-14-2024 Patient encounter procedure 05/14/2024 11:40 AM EDT Office Visit [facility] [address] [place], [place] [id number] Jennifer Arias MD [address] [place] [address] Oct end in office [facility] Rhe[facility]ology [facility] Comment on above: Oct end in office Start: 05-06-2024 End: 05-06-2024 Patient encounter procedure 05/06/2024 10:30 AM EDT Infusion [facility] [address] [place] [address] orencia [facility] Comment on above: orencia Start: 04-30-2024 End: 04-30-2024 Patient encounter procedure [facility] Comment on above: //// reclast NEW LOCATION //// reclast + Orenc ia * reclast + Orencia Start: 04-22-2024 End: 04-22-2024 Patient encounter procedure 04/22/2024 10:30 AM EDT [facility] [address] [place] [address] *orencia Q4wks [facility] Comment on above: *orencia Q4wks Start: 2024 Advance Directive Discussion Advance Directive Discussion [facility] Start: 2024 PNEUMOCOCCAL (4 - PPSV23 if available, else PCV20) PNEUMOCOCCAL (4 - PPSV23 if available, else PCV20) [facility] Start: 2024 PNEUMOCOCCAL (4 - PPSV23 or PCV20) PNEUMOCOCCAL (4 - PPSV23 or PCV20) [facility] Start: 2024 Pneumococcal vaccination [facility] Start: 2024 Pneumococcal Vaccine: 65+ (4 of 4 - PPSV23 or PCV20) Pneumococcal Vaccine: 65+ (4 of 4 - PPSV23 or PCV20) [facility] Start: 2024 End: 2024 Patient encounter procedure 2024 10:30 AM EDT [facility] [address] [place] [address] orencia [facility] Comment on above: orencia Start: 03-29-2024 Influenza vaccination [facility] Start: 03-25-2024 End: 03-25-2024 Patient encounter procedure 03/25/2024 10:00 AM EDT Infusion [facility] [address] [place] [address] *orencia Q4wks [facility] Comment on above: *orencia Q4wks Start: 03-11-2024 Pneumococcal Vaccine: 50+ (4 of 4 - PCV20 or PCV21) Pneumococcal Vaccine: 50+ (4 of 4 - PCV20 or PCV21) [facility] Start: 03-11-2024 Urine microalbumin profile [facility] Start: 03-11-2024 End: 03-11-2024 Patient encounter procedure 03/11/2024 10:30 AM EDT [facility]fusion [facility] [address] [place] [address] orencia [facility] Comment on above: orencia Start: 03-03-2024 End: 03-03-2024 Patient encounter procedure 03/03/2024 3:20 PM EDT [facility] [address] [place] [address] Sarah Pearson, PA-C [address] [place] [address] Oct end in office [facility] Comment on above: Oct end in office Start: 02-26-2024 End: 02-26-2024 Patient encounter procedure 02/26/2024 10:00 AM EDT Infusion [facility] [address] [place] [address] *orencia Q4wks [facility] Comment on above: *orencia Q4wks Start: 02-25-2024 End: 02-25-2024 Patient encounter procedure 02/25/2024 9:40 AM EDT [facility] [address] [place] [address] Sarah Pearson, PA-C [address] [place] [address] Oct end in office [facility] Comment on above: Oct end in office Start: 02-12-2024 End: 02-12-2024 Patient encounter procedure 02/12/2024 10:30 AM EDT Infusion Center [facility] [address] [place] [address] orencia [facility] Comment on above: orencia Start: 01-29-2024 End: 01-29-2024 Patient encounter procedure 01/29/2024 10:00 AM EDT Infusion Center [facility] [address] [place] [address] *orencia Q4wks [facility] Comment on above: *orencia Q4wks Start: 01-15-2024 End: 01-15-2024 Patient encounter procedure 01/15/2024 10:30 AM EDT Infusion Center [facility] [address] [place] [address] orencia [facility] Comment on above: orencia Start: 12-18-2023 End: 12-18-2023 Patient encounter procedure 12/18/2023 10:30 AM EDT Infusion Center [facility] [address] [place] [address] [facility] Comment on above: orencia Start: 11-21-2023 End: 11-21-2023 Patient encounter procedure 11/21/2023 11:00 AM EDT [facility] Visit [facility] [address] [place], [place] [address] Jennifer Arias MD [address] [place] [address] Return in about 6 months (around 11/20/2023) for , Dr. Arias. [facility] Comment on above: Return in about 6 months (around 11/20/19) for RADr. Arias. Start: 11-19-2023 Lipid 1996 panel - Serum or Plasma Lipid Screening [facility] Start: 11-19-2023 Lipid panel Lipid Screening [facility] Start: 11-19-2023 LIPID SCREEN LIPID SCREEN [facility] Start: 10-19-2023 [facility] Start: 10-19-2023 Incentive spirometry [facility] Start: 09-06-2023 Elastase.pancreatic [Presence] in Stool [facility] Start: 09-06-2023 Giardia lamblia Ag [Presence] in Stool by Immunoassay [facility] Start: 09-06-2023 Procedure [facility] Start: 05-17-2023 ANNUAL PCP TEAM CHRONIC DISEASE VISIT ANNUAL PCP TEAM CHRONIC DISEASE VISIT [facility] Start: 04-25-2023 End: 04-23-2024 BLOOD TB SCREEN, INCUBATED [facility] Work Phone: Comment on above: Expected: 04/25/2023, Expires: 4 Start: 04-25-2023 End: 06-25-2023 Chronic hepatitis differentiation between hepatitis B and C virus panel - Serum or Plasma [facility] Work Phone: Comment on above: Expected: 04/25/2023, Expires: 3 Start: 03-29-2023 Influenza vaccination [facility] Start: 02-06-2023 HPV TESTING HPV TESTING [facility] Start: 02-06-2023 PAP TESTING PAP TESTING [facility] Start: 02-06-2023 Screening for malignant neoplasm of cervix [facility] Start: 01-24-2023 Patient discharge [facility] Start: 01-23-2023 Following clinical pathway protocol [facility] Start: 01-23-2023 Application of intermittent pneumatic compression device [facility] Start: 01-23-2023 Provision of overbed trapeze [facility] Start: 01-23-2023 Recommendation to continue with treatment [facility] Start: 01-23-2023 Admission procedure [facility] Start: 01-23-2023 Ambulation therapy management [facility] Start: 01-23-2023 Application of device [facility] Start: 01-23-2023 Assessment of risk of venous thromboembolism [facility] Start: 01-23-2023 Catheterization of vein [facility] Start: 01-23-2023 Exercises [facility] Start: 01-23-2023 Following clinical pathway protocol [facility] Start: 01-23-2023 Incentive spirometry [facility] Start: 01-23-2023 Introduction of urinary catheter [facility] Start: 01-23-2023 Measuring intake and output [facility] Start: 01-23-2023 Neurovascular assessment [facility] Start: 01-23-2023 Patient education [facility] Start: 01-23-2023 Procedure discontinued [facility] Start: 01-23-2023 Provision of activity privileges [facility] Start: 01-23-2023 Referral to occupational therapist [facility] Start: 01-23-2023 Referral to service [facility] Start: 01-23-2023 Vital signs measurements [facility] Start: 01-23-2023 Wound care [facility] Start: 01-23-2023 [facility] Start: 12-05-2022 Protein measurement [facility] Start: 11-06-2022 Colonoscopy w/biopsy single/multiple COLONOSCOPY AND BIOPSY [facility] Start: 11-06-2022 Egd transoral biopsy single/multiple EGD BIOPSY SINGLE/MULTIPLE [facility] Start: 11-06-2022 Patient discharge [facility] Start: 10-18-2022 End: 12-18-2022 25-hydroxyvitamin D3 [Mass/volume] in Serum or Plasma [facility] Work Phone: Comment on above: Expected: 10/18/2022, Expires: 3 Start: 10-18-2022 End: 12-18-2022 C reactive protein [Mass/volume] in Serum or Plasma [facility] Work Phone: Comment on above: Expected: 10/18/2022, Expires: 3 Start: 10-18-2022 End: 12-18-2022 Comprehensive metabolic 2000 panel - Serum or Plasma [facility] Work Phone: Comment on above: Expected: 10/18/2022, Expires: 3 Start: 10-18-2022 End: 12-18-2022 Erythrocyte sedimentation rate [facility] Work Phone: Comment on above: Expected: 10/18/2022, Expires: 3 Start: 10-18-2022 End: 12-18-2022 Parathyrin.intact [Mass/volume] in Serum or Plasma [facility] Work Phone: Comment on above: Expected: 10/18/2022, Expires: 3 Start: 10-06-2022 ANNUAL PCP TEAM CHRONIC DISEASE VISIT ANNUAL PCP TEAM CHRONIC DISEASE VISIT [facility] Start: 10-06-2022 BP CONTROLLED (<130/80) BP CONTROLLED (<130/80) [facility] Start: 03-29-2022 Influenza vaccination INFLUENZA (#1) [facility] Start: 01-23-2022 End: 03-25-2022 Hemoglobin A1c in Blood HGB A1C Lab Routine Class 1 obesity with body mass index (BMI) of 34.0 to 34.9 in adult Expected: 01/23/2022, Expires: 03/25/2022 [facility] Work Phone: Comment on above: Expected: 01/23/2022, Expires: 2 Start: 01-23-2022 End: 03-25-2022 Lipid 1996 panel - Serum or Plasma LIPID PANEL BASIC Lab Routine Hyperlipidemia with target LDL less than 130 Expected: 01/23/2022, Expires: 03/25/2022 [facility] Work Phone: Comment on above: Expected: 01/23/2022, Expires: 2 Start: 01-23-2022 End: 03-25-2022 SCHEDULE LAB TESTING SCHEDULE LAB TESTING Lab Routine Expected: 01/23/2022, Expires: 03/25/2022 [facility] Work Phone: Comment on above: Expected: 01/23/2022, Expires: 2 Start: 03-03-2021 Influenza vaccination LUNG CANCER SCREENING [facility] Start: 03-03-2021 Screening for malignant neoplasm of lung Lung Cancer Screening [facility] Start: 2019 RSV Vaccine (1 - 1-dose 60+ series) RSV Vaccine (1 - 1-dose 60+ series) [facility] Start: 2019 RSV Vaccine (1 - Risk 60-74 years 1-dose series) RSV Vaccine (1 - Risk 60-74 years 1-dose series) [facility] Start: 02-06-2019 Screening for malignant neoplasm of cervix Cervical Cancer Screening [facility] Start: 12-10-2018 Mammography [facility] Start: 12-10-2018 Screening for malignant neoplasm of breast Mammogram Screening [facility] Start: 2009 SHINGRIX VACCINE (1 of 2) SHINGRIX VACCINE (1 of 2) [facility] Start: 2004 COLOGUARD (FIT-DNA) COLOGUARD (FIT-DNA) [facility] Start: [address] COLONOGRAPHY [facility] Start: 2004 FECAL OCCULT BLOOD FECAL OCCULT BLOOD [facility] Start: 2004 Screening for malignant neoplasm of colon [facility] Start: 2004 SIGMOIDOSCOPY SIGMOIDOSCOPY [facility] Start: 1989 Zoledronic acid therapy ALPHA-1 ANTITRYPSIN DEFICIENCY SCREENING [facility] Start: 1978 SHINGRIX VACCINE (1 of 2) SHINGRIX VACCINE (1 of 2) [facility] Start: 1977 Anxiety Screening Anxiety Screening [facility] Start: 1977 BP CONTROLLED (<130/80) BP CONTROLLED (<130/80) [facility] Start: 1977 HIV SCREENING HIV SCREENING [facility] Start: 1977 HIV screening HIV Screening [facility] Start: 1971 COVID-19 VACCINE (1) COVID-19 VACCINE (1) [facility] Start: 1964 COVID-19 VACCINE (#1) COVID-19 VACCINE (#1) [facility] Start: 1959 COVID-19 VACCINE (#1) COVID-19 VACCINE (#1) [facility] End: 10-25-2023 25-hydroxyvitamin D3 [Mass/volume] in Serum or Plasma VITAMIN D 25 HYDROXY Lab Routine Rheumatoid arthritis involving multiple sites, unspecified whether rheumatoid factor present (HCC) Vitamin D deficiency Every 6 months for 2 Occurrences starting 10/25/2022 until 10/25/2023 [facility] Work Phone: Comment on above: Every 6 months for 2 Occurrences startin g 10/25/2022 until 10/25/2023 C reactive protein [Mass/volume] in Serum or Plasma C-REACTIVE PROTEIN (CRP) Lab Routine Rheumatoid arthritis involving multiple sites with positive rheumatoid factor (HCC) 11/02/2021 10:51 AM EDT [facility] Work Phone: End: 10-24-2023 C reactive protein [Mass/volume] in Serum or Plasma C-REACTIVE PROTEIN (CRP) Lab Routine Rheumatoid arthritis involving multiple sites, unspecified whether rheumatoid factor present (HCC) Every 3 months for 4 Occurrences starting 10/25/2022 until 10/24/2023 [facility] Work Phone: Comment on above: Every 3 months for 4 Occurrences startin g 10/25/2022 until 10/24/2023 End: 10-24-2023 CBC panel - Blood by Automated count CBC Lab Routine Rheumatoid arthritis involving multiple sites, unspecified whether rheumatoid factor present (HCC) Every 3 months for 4 Occurrences starting 10/25/2022 until 10/24/2023 [facility] Work Phone: Comment on above: Every 3 months for 4 Occurrences startin g 10/25/2022 until 10/24/2023 CBC W Auto Different ial panel - Blood CBC + DIFF Lab Routine Rheumatoid arthritis involving multiple sites with positive rheumatoid factor (HCC) 11/02/2021 10:51 AM EDT [facility] Work Phone: End: 11-19-2024 CBC W Auto Differential panel - Blood COMPLETE BLOOD COUNT AND DIFFERENTIAL Lab Routine Rheumatoid arthritis involving multiple sites with positive rheumatoid factor (HCC) Every 3 months for 4 Occurrences starting 11/20/2023 until 11/19/2024, 1 completed [facility] Work Phone: Comment on above: Every 3 months for 4 Occurrences startin g 11/20/2023 until 11/19/2024, 1 completed End: 01-28-2025 CBC W Auto Differential panel - Blood COMPLETE BLOOD COUNT AND DIFFERENTIAL Lab Routine Rheumatoid arthritis involving multiple sites with positive rheumatoid factor (HCC) Every 3 months for 4 Occurrences starting 01/29/2024 until 01/28/2025 [facility] Work Phone: Comment on above: Every 3 months for 4 Occurrences startin g 01/29/2024 until 01/28/2025 End: 05-21-2025 CBC W Auto Differential panel - Blood COMPLETE BLOOD COUNT AND DIFFERENTIAL Lab Routine Rheumatoid arthritis involving multiple sites with positive rheumatoid factor (HCC) Every 3 months for 4 Occurrences starting 05/21/2024 until 05/21/2025, 1 completed [facility] Work Phone: Comment on above: Every 3 months for 4 Occurrences startin g 05/21/2024 until 05/21/2025, 1 completed CBC W Auto Different ial panel - Blood [facility] Chronic hepatitis differentiation between hepatitis B and C virus panel - Serum or Plasma HEP REMOTE PANEL BL Lab Routine Anal cancer (HCC) 09/16/2024 12:35 PM [facility] Clostridioides diffi cile DNA [Presence] in Unspecified specimen by CORAL with probe detection [facility] Colonoscopy [facility] Comprehensive metabo lic 2000 panel - Serum or Plasma COMP METABOLIC PANEL Lab Routine Rheumatoid arthritis involving multiple sites with positive rheumatoid factor (HCC) 11/02/2021 10:51 AM EDT [facility] Work Phone: End: 10-24-2023 Comprehensive metabolic 2000 panel - Serum or Plasma COMP METABOLIC PANEL Lab Routine Rheumatoid arthritis involving multiple sites, unspecified whether rheumatoid factor present (HCC) Every 3 months for 4 Occurrences starting 10/25/2022 until 10/24/2023 [facility] Work Phone: Comment on above: Every 3 months for 4 Occurrences startin g 10/25/2022 until 10/24/2023 End: 11-19-2024 Comprehensive metabolic 2000 panel - Serum or Plasma COMPREHENSIVE METABOLIC PANEL Lab Routine Rheumatoid arthritis involving multiple sites with positive rheumatoid factor (HCC) Every 3 months for 4 Occurrences starting 11/20/2023 until 11/19/2024, 1 completed [facility] Comment on above: Every 3 months for 4 Occurrences startin g 11/20/2023 until 11/19/2024, 1 completed End: 01-28-2025 Comprehensive metabolic 2000 panel - Serum or Plasma COMPREHENSIVE METABOLIC PANEL Lab Routine Rheumatoid arthritis involving multiple sites with positive rheumatoid factor (HCC) Every 3 months for 4 Occurrences starting 01/29/2024 until 01/28/2025 [facility] Comment on above: Every 3 months for 4 Occurrences startin g 01/29/2024 until 01/28/2025 End: 05-21-2025 Comprehensive metabolic 2000 panel - Serum or Plasma COMPREHENSIVE METABOLIC PANEL Lab Routine Rheumatoid arthritis involving multiple sites with positive rheumatoid factor (HCC) Every 3 months for 4 Occurrences starting 05/21/2024 until 05/21/2025 [facility] Comment on above: Every 3 months for 4 Occurrences startin g 05/21/2024 until 05/21/2025 Comprehensive metabo lic 2000 panel - Serum or Plasma COMPREHENSIVE METABOLIC PANEL Lab Routine Rheumatoid arthritis involving multiple sites with positive rheumatoid factor (HCC) 05/21/2024 1:31 PM EDT [facility] Comprehensive metabo lic 2000 panel - Serum or Plasma [facility] End: 04-18-2026 CT Abdomen and Pelvis W contrast IV CT ABD/PEL W IVCON Radiology Routine Malignant neoplasm of anus (HCC) 1 Occurrences starting 03/19/2025 until 04/18/2026 [facility] Work Phone: Comment on above: 1 Occurrences starting 03/19/2025 until 04/18/2026 End: 10-16-2025 CT Chest W contrast IV CT CHEST W IVCON Radiology STAT Anal cancer (HCC) 1 Occurrences starting 09/16/2024 until 10/16/2025 [facility] Work Phone: Comment on above: 1 Occurrences starting 09/16/2024 until 10/16/2025 End: 04-18-2026 CT Chest W contrast IV CT CHEST W IVCON Radiology Routine Malignant neoplasm of anus (HCC) 1 Occurrences starting 03/19/2025 until 04/18/2026 [facility] Comment on above: 1 Occurrences starting 03/19/2025 until 04/18/2026 CT Guidance for radi ation treatment of Unspecified body region CT SIM PLANNING RADIATION ONCOLOGY Radiology Routine Anal cancer (HCC) Ordered: 10/01/2024 [facility] Work Phone: Comment on above: Ordered: 10/01/2024 End: 10-30-2025 DBT Breast - bilateral screening MARIA TERESA SCREENING W [place] Radiology Routine Encounter for gynecological examination (general) (routine) without abnormal findings Encounter for screening mammogram for breast cancer 1 Occurrences starting 09/30/2024 until 10/30/2025 [facility] Work Phone: Comment on above: 1 Occurrences starting 09/30/2024 until 10/30/2025 DBT Breast - bilater al screening MARIA TERESA SCREENING W [place] Radiology Routine Encounter for gynecological examination (general) (routine) without abnormal findings Encounter for screening mammogram for breast cancer 09/30/2024 10:49 AM [facility] [id number] GENOTYPI NG PANEL [id number] GENOTYPING PANEL Lab Routine Anal cancer ([facility]) 09/16/2024 12:35 PM [facility] End: 07-26-2023 Dxa bone density study 1/> sites axial skel DXA-AXIAL SKELETON Radiology Routine Localized osteoporosis without current pathological fracture 1 Occurrences starting 06/26/2022 until 07/26/2023 [facility] Work Phone: Comment on above: 1 Occurrences starting 06/26/2022 until 07/26/2023 End: 06-14-2025 DXA Skeletal system.axial Views for bone density DXA-AXIAL SKELETON Radiology Routine Osteoporosis, unspecified osteoporosis type, unspecified pathological fracture presence 1 Occurrences starting 05/15/2024 until 06/14/2025 [facility] Work Phone: Comment on above: 1 Occurrences starting 05/15/2024 until 06/14/2025 DXA Skeletal system. axial Views for bone density DXA-AXIAL SKELETON Radiology Routine Osteoporosis, unspecified osteoporosis type, unspecified pathological fracture presence 08/20/2024 9:45 AM [facility] Work Phone: Elastase, pancreatic (el-1), fecal; quantitative [facility] Erythrocyte sediment ation rate SED RATE WESTERGREN Lab Routine Rheumatoid arthritis involving multiple sites with positive rheumatoid factor ([facility]) 11/02/2021 10:51 AM EDT [facility] Work Phone: Erythrocyte sediment ation rate SED RATE WE[place]GR[place] Lab Routine Rheumatoid arthritis involving multiple sites with positive rheumatoid factor ([facility]) 03/05/2022 1:14 PM EDT [facility] Work Phone: Erythrocyte sediment ation rate SED RATE [facility]STERGR[facility] Lab Routine Rheumatoid arthritis involving multiple sites with positive rheumatoid factor (HCC) 07/17/2022 11:28 AM EST [facility] Work Phone: End: 10-24-2023 Erythrocyte sedimentation rate SED RATE [facility]GR[facility] Lab Routine Rheumatoid arthritis involving multiple sites, unspecified whether rheumatoid factor present ([facility]) Every 3 months for 4 Occurrences starting 10/25/2022 until 10/24/2023 [facility] Work Phone: Comment on above: Every 3 months for 4 Occurrences startin g 10/25/2022 until 10/24/2023 Gastrointestinal pathogens panel - Stool by CORAL with probe detection [facility] Giardia lamblia Ag [Presence] in Stool by Immunoassay [facility] Hepatitis B virus co re Ab [Presence] in Serum HEP B CORE AB TOTAL Lab Routine Rheumatoid arthritis involving multiple sites, unspecified whether rheumatoid factor present ([facility]) 04/25/2023 10:33 AM EDT [facility] Work Phone: HIV 1+2 Ab [Presence ] in Serum or Plasma by Immunoassay HIV 1/2 COMBO WITH REFLEX TO DIFFERENTIATION Lab Routine Anal cancer ([facility]) 09/16/2024 12:35 PM EST [facility] Influenza virus A an d B RNA and SARS-CoV-2 (COVID-19) N gene panel - Respiratory specimen by CORAL with probe detection COVID WITH FLUA+B, ROUTINE Microbiology Routine Exposure to 2019 novel coronavirus Ordered: 05/16/2022 [facility] Work Phone: Comment on above: Ordered: 05/16/2022 Lactoferrin [Presenc e] in Stool by Immunoassay [facility] Lactoferrin [Presenc e] in Stool by Immunoassay [facility] Lactoferrin [Presenc e] in Stool by Immunoassay [facility] End: 02-23-2023 MARIA TERESA SCREENING W CAMERON MARIA TERESA SCREENING W CAMERON Radiology Routine Encounter for screening mammogram for breast cancer 1 Occurrences starting 01/24/2022 until 02/23/2023 [facility] Work Phone: Comment on above: 1 Occurrences starting 01/24/2022 until 02/23/2023 End: 10-16-2025 MR Pelvis WO and W contrast IV MRI PELVIS WO/W IVCON Radiology STAT Anal cancer (HCC) 1 Occurrences starting 09/16/2024 until 10/16/2025 [facility] Comment on above: 1 Occurrences starting 09/16/2024 until 10/16/2025 MR Pelvis WO and W contrast IV MRI PELVIS WO/W IVCON Radiology STAT Anal cancer (HCC) 09/23/2024 4:24 PM EST [facility] Work Phone: MR Pelvis WO and W contrast IV MRI PELVIS WO/W IVCON Radiology Routine Malignant neoplasm of anus (HCC) Anal cancer (HCC) 02/01/2025 11:43 AM EDT [facility] Work Phone: MRI of small intestine [facility] Ova and parasites identified in Unspecified specimen by Light microscopy [facility] PAP TEST PAP TEST Lab Stephanie pickens Encounter for screening for human papillomavirus (HPV) Pap smear for cervical cancer screening 09/30/2024 10:46 AM EST [facility] Patient Education [facility] Work Phone: Patient referral [facility] Work Phone: End: 10-15-2025 PET+CT Guidance for localization of tumor of Skull base to mid-thigh-- W 18F-FDG IV NM PET/CT SKULL-THIGH INITIAL Radiology Routine Anal cancer (HCC) 1 Occurrences starting 09/15/2024 until 10/15/2025 [facility] Comment on above: 1 Occurrences starting 09/15/2024 until 10/15/2025 POST VOID RESIDUAL POST VOID RES IDUAL Procedures Routine Urinary urgency Ordered: 10/21/2024 [facility] Work Phone: Comment on above: Ordered: 10/21/2024 Procedure [facility] Protein measurement [facility] Protein measurement [facility] Protein measurement [facility] Radiologic exam esop hagus double contrast study [facility] Radionuclide gastric emptying study [facility] Stroke after atrial fibrillation 5 year risk [#] Rojelio 2002 IR PORTOCATH PLACEMENT Radiology MORAIMA Anal cancer (HCC) Rheumatoid arthritis involving multiple sites with positive rheumatoid factor (HCC) Ordered: 10/26/2024 [facility] Work Phone: Comment on above: Ordered: 10/26/2024 US Lower extremity vein US LEG V EIN DVT [facility] LAB Vascular Lab STAT Anal cancer (HCC) Right leg pain 09/16/2024 11:36 AM EST [facility] End: 10-19-2025 US Upper extremity veins US ARM VEIN DVT [facility] LAB Vascular Lab STAT Anal cancer (HCC) PICC (peripherally inserted central catheter) in place Arm swelling 1 Occurrences starting 10/19/2024 until 10/19/2025 [facility] Work Phone: Comment on above: 1 Occurrences starting 10/19/2024 until 10/19/2025 Vitamin B12 measurement [facility] Vitamin D, 25-hydrox y measurement [facility] End: 07-26-2023 XR HIP GENERAL 3V PELV/AP/LAT LEFT XR HIP GENERAL 3V PELV/AP/LAT LEFT Radiology Routine Pain in left hip Fall, initial encounter 1 Occurrences starting 06/26/2022 until 07/26/2023 [facility] Work Phone: Comment on above: 1 Occurrences starting 06/26/2022 until 07/26/2023 End: 06-26-2022 XR HIP GENERAL 3V PELV/AP/LAT LEFT [facility] Work Phone: Comment on above: 1 Occurrences starting 06/26/2022 until 06/26/2022 [facility] Immunizations Immunization Date Immunization Notes Care Provider Nilton escobar 08-07-2022 influenza virus vacc ine, unspecified formulation Jennifer Arias MD Work Phone: [facility] 05-01-2021 influenza, injectabl e, quadrivalent, contains preservative Jennifer Arias MD Work Phone: [facility] Work Phone: 06-01-2020 influenza, injectabl e, quadrivalent, contains preservative Jennifer Arias MD Work Phone: [facility] Work Phone: 03-11-2019 pneumococcal polysaccharide vaccine, 23 valent Jennifer Arias MD Work Phone: [facility] Work Phone: 02-09-2019 pneumococcal conjuga te vaccine, 13 valent Jennifer Arias MD Work Phone: [facility] Work Phone: 06-02-2018 influenza, injectabl e, quadrivalent, contains preservative Jennifer Arias MD Work Phone: [facility] Work Phone: 04-16-2017 influenza, injectabl e, quadrivalent, contains preservative Jennifer Arias MD Work Phone: [facility] Work Phone: 07-09-2016 influenza, injectabl e, quadrivalent, contains preservative Jennifer Arias MD Work Phone: [facility] Work Phone: 05-16-2015 influenza, injectabl e, quadrivalent, contains preservative Jennifer Arias MD Work Phone: [facility] 06-03-2014 influenza, seasonal, injectable Jennifer Arias MD Work Phone: [facility] Work Phone: 03-11-2014 pneumococcal polysaccharide vaccine, 23 valent Jennifer Arias MD Work Phone: [facility] Work Phone: 03-11-2014 tetanus toxoid, redu cj diphtheria toxoid, and acellular pertussis vaccine, adsorbed Jennifer Arias MD Work Phone: [facility] Work Phone: 05-12-2012 influenza virus vacc ine, unspecified formulation Jennifer Arias MD Work Phone: [facility] Work Phone: Payers Date Payer Category Payer Medicaid [id number] 2024 Self-pay [id number] 2022 Medicare (Managed Care) 1.2. [id number] 2022 Unknown [id number] 2020 Medicare [facility] MEDICARE [facility] DUAL COMPLETE HMO SNP [id number] 2020-[facility] [phone] [address] [place] [address] Medicare [id number] 2020 Medicare [id number] [id number] .[id number] 2019 Medicaid [id number]. 1.13.159.2.7 .[id number] 2015 Unknown [id number] 1959 Unknown [id number] 2.16.840.1.627239.3.579.2.6 51 1959 Unknown [id number] 2.16.840.1.181507.3.579.2.6 51 1959 Unknown [id number] 2.16.840.1.295698.3.579.2.6 51 1959 Unknown [id number] 2.16.840.1.120007.3.579.2.6 51 1959 Unknown [id number] 2.16.840.1.776750.3.579.2.6 51 1959 Unknown [id number] 2.16.840.1.061209.3.579.2.6 51 1959 Unknown [id number] 2.16.840.1.536227.3.579.2.6 51 1959 Unknown [id number] 2.16.840.1.705177.3.579.2.6 51 Medicare [id number] Medicare [id number] Private Health Insurance [id number] Unknown [id number] Unknown [id number] 2.16.840.1.661978.3.579.2.4 62 Unknown [id number] 2.16.840.1.428525.3.579.2.4 62 Unknown [id number] 2.16.840.1.073699.3.579.2.4 62 Unknown [id number] 2.16.840.1.673437.3.579.2.4 62 Unknown [id number] 2.16.840.1.202966.3.579.2.4 62 Unknown [id number] 2.16.840.1.492273.3.579.2.4 62 Unknown [id number] 2.16.840.1.035972.3.579.2.4 62 Unknown [id number] 2.16.840.1.422514.3.579.2.4 62 Unknown [id number] 2.16.840.1.457173.3.579.2.4 62 Unknown [id number] 2.16.840.1.991754.3.579.2.4 62 Unknown [id number] 2.16.840.1.645667.3.579.2.4 62 Unknown [id number] 2.16.840.1.628618.3.579.2.4 62 Unknown [id number] 2.16.840.1.647696.3.579.2.4 62 Unknown [id number] 2.16.840.1.419308.3.579.2.4 62 Unknown [id number] 2.16.840.1.655029.3.579.2.4 62 Unknown [id number] 2.16.840.1.474759.3.579.2.4 62 Unknown [id number] 2.16.840.1.842014.3.579.2.4 62 Unknown [id number] 2.16.840.1.966890.3.579.2.4 62 Unknown [id number] 2.16.840.1.715459.3.579.2.4 62 Unknown [id number] 2.16.840.1.281389.3.579.2.4 62 Unknown [id number] 2.16.840.1.668382.3.579.2.4 62 Unknown [id number] 2.16.840.1.822148.3.579.2.4 62 Unknown [id number] 2.16.840.1.038400.3.579.2.4 62 Unknown [id number] 2.16.840.1.506126.3.579.2.4 62 Unknown [id number] 2.16.840.1.461370.3.579.2.4 62 Unknown [id number] 2.16.840.1.549001.3.579.2.4 62 Unknown [id number] 2.16.840.1.131674.3.579.2.4 62 Unknown [id number] 2.16.840.1.098688.3.579.2.4 62 Unknown [id number] 2.16.840.1.703848.3.579.2.4 62 Social History Date Type Detail Facility Start: 01-28-2019 End: 09-02-2024 Ex-smoker (finding) [facility] Start: 1960 Sex Assigned At Female A [facility] Start: 01-02-1984 End: 01-01-2015 History of tobacco use Current smoker [facility] Start: 01-02-1984 End: 01-01-2015 History of tobacco use Cigarette Smoker [facility] Start: 02-08-2012 End: 11-20-2023 Cigarettes smoked current (pack per day) - Reported 1 [facility] Start: 02-08-2012 End: 09-02-2024 Tobacco use and exposure Smokeless tobacco non-user [facility] Start: 10-06-2021 End: 03-19-2025 Alcohol intake Current non-drinker of alcohol (finding) [facility] Start: 05-31-2020 End: 05-17-2022 History SDOH Alcohol Frequency 1 [facility] Start: 05-31-2020 History SDOH Alcohol Std Drinks 98 [facility] Start: 05-31-2020 History SDOH Social Connections Phone 5 [facility] Start: 05-31-2020 End: 05-17-2022 History SDOH Social Connections Get Together 2 [facility] Start: 05-31-2020 History SDOH Physica l Activity DPW 0 [facility] Start: 05-31-2020 History SDOH Financial 3 [facility] Start: 06-11-2019 Education 15 [facility] Start: 03-03-2019 End: 05-16-2022 Tobacco Comment ETS: Father in childhood home. Active smoker in current home. [facility] Start: 1960 Sex Assigned At Not on file [facility] Start: 10-21-2021 End: 10-31-2021 Exposure to SARS-CoV-2 (event) Unable to assess [facility] Start: 01-09-2021 End: 06-26-2022 Exposure to SARS-CoV-2 (event) Not sure [facility] Start: 05-06-2022 End: 05-16-2022 Exposure to SARS-CoV-2 (event) Yes [facility] Work Phone: Start: 09-12-2022 End: 10-19-2023 Tobacco smoking status NHIS Unknown if ever smoked [facility] Start: 01-24-2020 None [facility] Start: 01-24-2020 With Family [facility] Start: 12-28-2015 Non-smoker [facility] Start: 05-31-2020 End: 11-20-2023 Social connection and isolation panel [facility] Do you belong to any clubs or organizations such as confucianism groups, unions, fraternal or athletic groups, or school groups? No [facility] Are you now , , , , never or living with a partner? [facility] How often to you hav e a drink containing alcohol? Never [facility] Start: 06-29-[address] inks containing alcohol do you have on a typical day? Patient refused [facility] How hard is it for y ou to pay for the very basics like food, housing, medical care, and heating Somewhat hard [facility] Do you feel stress - tense, restless, nervous, or anxious, or unable to sleep at night because your mind is troubled all the time - these days [OSQ] Very much [facility] (I/We) worried niko er (my/our) food would run out before (I/we) got money to buy more. Sometimes true [facility] Start: 10-13-2024 End: 10-30-2024 Sex Female (finding) [facility] NEGATED: Highlighted row [facility] NEGATED: Highlighted row Not [facility] Medical Equipment Procedure Code Equipment Code Equipment Original Text Equipment Identifier Dates FDA Start: 08-29-2021 FDA Start: 08-29-2021 FDA Start: 08-29-2021 Mesh Bio-A Synth etic 10x7cm Surgical Reinforcement Hernia Repair - [id number] Start: 05-07-2019 FDA Start: 08-29-2021 [...] Unknown 08/29/21 Unknown Unknown FDA Start: 08-29-2021 ([id number]) Metal-backed pat babita prosthesis ()[id number] FDA Start: 01-23-2023 ([id number]) Coated knee femu r prosthesis ()[id number] FDA Start: 01-23-2023 ([id number]) Coated knee tibi a prosthesis ()[id number] FDA Start: 01-23-2023 ([id number]) Tibial insert [id number] FDA Start: 01-23-[address] Plastic 8f Chronoflex Catheter With Kit - [id number] Start: 10-30-2024 Goals Date Patient Goal Desired Activity /State Functional Status Date Assessment Result Facility 09-03-2024 Functional status Ambulates;Bath room Privilege [facility] Work Phone: 01-24-2023 Functional status Chair [facility] Work Phone: 10-02-2021 Functional [facility] 05-08-2019 Are you deaf, or do you have serious difficulty hearing No 05/08/2019 5:36 PM EDAnyi Kelly, LÓPEZ No [facility] 05-08-2019 Are you blind, or do you have serious difficulty seeing, even when wearing glasses No 05/08/2019 5:36 PM Anyi Herrera, LÓPEZ No [facility] 05-08-2019 Do you have serious difficulty walking or climbing stairs No 05/08/2019 5:36 PM RODRIGOT Anyi Del Toro, LÓPEZ No [facility] 05-08-2019 Do you have difficul ty dressing or bathing No 05/08/2019 5:36 PM EDAnyi Kelly, LÓPEZ No [facility] 05-08-2019 Because of a physica l, mental, or emotional condition, do you have difficulty doing errands alone such as visiting a physician's office or shopping No 05/08/2019 5:36 PM Anyi Herrera RN No [facility] Mental Status Date Assessment Result Facility 03-02-2025 Cognitive function Level Of Cons ciousness Sedated [facility] Work Phone: 03-02-2025 Cognitive function Voice/Name [facility] Work Phone: 12-27-2024 Cognitive function Level Of Cons ciousness Awake;Alert;Appropriate;Fol lows Commands [facility] Work Phone: 10-24-2024 Cognitive function Level Of Cons ciousness Awake;Alert;Appropriate;Fol lows Commands [facility] Work Phone: 10-02-2024 Cognitive function Awake;Alert;Appropriat e [facility] Work Phone: 09-03-2024 Cognitive function Voice/Name [facility] Work Phone: 09-03-2024 Cognitive function Cooperative;Anxious [facility] Work Phone: 07-25-2023 Cognitive function Awake;Alert;Appropriat e [facility] Work Phone: 01-24-2023 Cognitive function Level Of Cons ciousness Awake;Alert;Appropriate;Fol lows Commands [facility] Work Phone: 01-23-2023 Cognitive function Appropriate;Cooperativ e [facility] Work Phone: 01-23-2023 Cognitive function Voice/Name [facility] Work Phone: 11-06-2022 Cognitive function Voice/Name [facility] Work Phone: 11-06-2022 Cognitive function Patient Nia spencer Person;Place;Time [facility] Work Phone: 05-08-2019 Because of a physica l, mental, or emotional condition, do you have serious difficulty concentrating, remembering, or making decisions No 05/08/2019 5:36 PM EDT Anyi Del Toro RN No [facility] Clinical Notes 11-21-2020 to 03-19-2025 Telephone Encounter - Janie Rice - 03/19/2025 2:05 PM EDTTelephone Encounter - Janie Rice - 03/19/2025 2:05 PM EDTTelephone Encounter - Janie Rice - 03/19/2025 11:50 AM EDT Note Date & Type Note Facility 03-19-2025 Telephone encount er Note Spoke with patient and scheduled Janie Rice [facility] 03-19-2025 Miscellaneous Notes Formattin g of this note might be different from the original. Spoke with patient and scheduled Janie Rice AVS 03/19 Labs today.-DONE CBC/CMP CT C/A/P then OV in about 6 months.-Verifying with Dr. Sabrina Rice documented in this encounter [facility] 03-19-2025 Telephone encount er Note AVS 03/19 Labs today.-DONE CBC/CMP CT C/A/P then OV in about 6 months.-Ver[address] Dr. Sabrina Rice [facility] 03-19-2025 Note [facility] 03-19-2025 History of Presen t illness Narrative [...] OV 07/15/2025: Presented to the ED at [facility] on 09/02/2024 with complaint of perianal [...] to be a perianal mass. It extended retirement external to the anal verge and another [...] carcinoma in situ. See comment. COMMENT Immunohistochemistry ([id number]) for surrogate HPV marker (p16) will be [...] tablet by mouth two times a day. wcbojwjazrZZVAJ-twtwdj-bapctsb ne (BMX 1:1:1) 1:1:1 liqd Take 10 [...] once daily. On hold for 10 days) clvooj-watpijll-bobwgvb (CREON 36) 36,000-114,000- 180,000 unit delayed release [...] Ischemic Heart Disease Father age 42 from [place] Hypertension Sister other (Other) Brother 18 MVA [...] which included preparing to see the patient, knkk-lt-xnfh patient care, completing clinical documentation, obtaining and/or reviewing separately obtained history, performing a medically appropriate examination, ordering medications, tests, or procedures, communicating with other HCPs (not separately reported), and communicating results to the patient/family/caregiver. Josh Bennett DO documented in this encounter [facility] 03-02-2025 Consult note Note Date/Time March 02, 2025 9:21am [facility] Medical Records Department [address] [place] [address] Pre-Anesthesia Evaluation 03/02/25916 MR#: [id number] Acct: [id number] Name: MARIMAR WANG Rep #:[id number] : 1960 64 From: Nikita Roberson PCP: Julio Arriaga NP-C Status:REG S DC Y Race: C Location: [place] [address] ASA Classification* ASA Classification ASA Classification: 2 [...] FLEX SIGMOIDOSCOPY Anesthesia History Anesthesia History - filling machine set up mechanic: Anesthesia History - filling machine set up mechanic Hx Hospitalization Yes: AUG 2024, ANAL CANCER [...] of surgery protonix meclizine PONV PONV - filling machine set up mechanic: PONV - filling machine set up mechanic Female Yes 02/24/25 14:24 HX of Motion [...] 03/02/25 08:37 Respiratory Assessment Respiratory Assessment - filling machine set up mechanic: Respiratory Tract Infection Hx - filling machine set up mechanic Hx Respiratory Tract Infection No 02/24/25 14:24 STOP Sleep Apnea STOP Sleep Apnea - filling machine set up mechanic: STOP Sleep Apnea - filling machine set up mechanic Hx Hypertension Yes 02/24/25 14:24 Hx Sleep [...] Tobacco Use History Tobacco Use History - filling machine set up mechanic: Tobacco Use History - filling machine set up mechanic Tobacco Use Smoking Status Former smoker 02/27/25 17:52 Hx Tobacco Use No 02/24/25 14:24 Years Smoking Packs Smoked per Day Smoking Cessation Date was Yes - quit smoking within 15 02/24/25 14:24 within the last 15 years years Hx Smoking Cessation Date 12/27/13 02/27/25 17:52 Hx Smoking Cessation No 02/27/25 17:52 Counseling Hematologic Medial History Hematologic Hx - filling 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 Specify any problems Hx of Preganancy in last 3 No 02/24/25 14:24 Months Nurse Filling Out Transfusion EHWALCOTT 02/24/25 14:24 & Questions: Date: 02/24/25 02/24/25 14:24 Time: 14:37 02/24/25 14:24 Patient unable to answer at this time (ie. 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 History - filling machine set up mechanic: /Reproductive Hx- filling machine set up mechanic Hx Now No 02/24/25 14:24 Gestational Age [...] MENTAL HEALTH 0 12/13/15 09/01/24 History peg 307-lfhdxynkuhfc-idllnesp 1 1 drp OP 4X/DAY DRY EY [...] MD Cosigner Signature: Date CC: ~ Signed [facility] Work Phone: 1(820) 863-338508-05-2025 Consult note [facility] Medical Records Department [address] [place] [address] Anesthesia Postop Eval I 03/02/25 1045 MR#: [id number] Acct: [id number] Name: MARIMAR WANG Rep #:[id number] : 1960 64 From: Quang NATHAN PCP: Julio Arriaga NP-Marga Status:REG S DC Y Race: C Location: [place] [address] Anesthesia: Postop Eval I Current Vital Signs Temperature: 97 F Pulse Rate: 78 Blood Pressure: 107/64 Respiratory Rate: 16 Pulse Ox: 96 Assessment Airway patent: Yes Spontaneous unlabored respirations: Yes nausea: No Vomiting: No Anesthesia Complication: No Fluid Hydration Crystalloid volume administer (ml): 300 Total IV fluid infused: 300 Progress Note Anesthesia document: Postop Eval 1 completed: Yes 03/02/25 1045 NURSE OB> Date _ Quang Xiao NURSE OB Cosigner Signature: Date CC: ~ Signed [facility]08-05-2025 Procedure note [facility] Medical Records Department [address] [place] [address] Flex Sigmoidoscopy Report MR#: [id number] Acct: [id number] Name: MARIMAR WANG Rep #:[id number] : 1960 64 From: Kenya Garcia [...] normal. Biopsied. Procedure Code(s): --- Professional --- 45108, 52, Sigmoidoscopy, flexible; with biopsy, single or multiple Diagnosis Code(s): --- Professional --- Z85.048, Personal history of other malignant neoplasm of rectum, rectosigmoid junction, and anus CPT copyright 2021 [employer]. All rights reserved. The codes documented in this report are preliminary and upon surgical coder review may be revised to meet current compliance requirements. Kenya Garcia MD 03/02/2025 10:43:59 AM This report has been signed electronically. Number of Addenda: 0 Note Initiated On: 03/02/2025 10:02 AM 03/02/25 1044 Date _ Kenya Garcia MD Cosigner Signature: Date (if indicated) CC: SINAI Arriaga; Dr. Kenya Garcia MD ~ Date Dictated: 03/02/25 1002 Date Transcribed: Melt Supervisor: SHILPA Signed [facility]08-05-2025 Procedure note [facility] Medical Records Department [address] [place] [address] Provation Physician Letter MR#: [id number] Acct: [id number] Name: MARIMAR WANG Rep #:[id number] : 1960 64 From: Kenya Garcia [...] ~ Date Dictated: 03/02/25 1002 Date Transcribed: Melt Supervisor: SHILPA Signed [facility]08-05-2025 History and physical note [facility] Medical Records Department [address] [facility] [place] [address] History & Physical Exam 03/02/25 1008 MR#: [id number] Acct: [id number] Name: MARIMAR WANG Rep #:[id number] : 1960 64 From: Kenya Garcia MD PCP: Julio Arriaga, GEOLOGY ASSOCIATE-C Status:REG S DC Location: [address] HPI - General General Date of [...] is to biopsy for any residual disease [facility] Medical History Cancer Walker as [...] MENTAL HEALTH 0 12/13/15 09/01/24 History peg 445-snkmqmrawmdk-pgehzqmn 1 1 drp OP 4X/DAY DRY EY [...] SINAI Arriaga; Dr. Kenya Garcia MD~ Signed [facility]08-05-2025 [facility] Medical Records Department [address] [place] [address] History Physical Exam 03/02/25 1008 MR#: [id number] Acct: [id number] Name: MARIMAR WANG Rep #: [id number] : 1960 64 From: Kenya Garcia MD PCP: SINAI Arriola Status:[facility] Location: [place] [address] HPI - General General Date of Admission: [...] is to biopsy for any residual disease [facility] Medical History Cancer Walker as [...] QHS MENTAL HEALTH 6 09/01/24 History peg 087-gufxukhjnsgc-dxjrrsoq 1 1 drp OP 4X/DAY DRY EYES [...] 10/24/24 Unknown H istory a dose pack ([facility] DVT-PE Treat 30D Start) cholecalciferol (vitamin D3) [...] Unknown Rx TABLETS Allergy (more content not included)...[facility]08-05-2025 Consult note [facility] Medical Records Department [address] [place] [address] Pre-Anesthesia Evaluation 03/02/25916 MR#: [id number] Acct: [id number] Name: MARIMAR WANG Rep #:[id number] : 1960 64 From: Nikita Roberson PCP: Julio Arriaga NP-C Status:REG S DC Y Race: C Location: [place] [address] ASA Classification* ASA Classification ASA Classification: 2 [...] FLEX SIGMOIDOSCOPY Anesthesia History Anesthesia History - filling machine set up mechanic: Anesthesia History - filling machine set up mechanic Hx Hospitalization Yes: AUG 2024, ANAL CANCER [...] of surgery protonix meclizine PONV PONV - filling machine set up mechanic: PONV - filling machine set up mechanic Female Yes 02/24/25 14:24 HX of Motion [...] 03/02/25 08:37 Respiratory Assessment Respiratory Assessment - filling machine set up mechanic: Respiratory Tract Infection Hx - filling machine set up mechanic Hx Respiratory Tract Infection No 02/24/25 14:24 STOP Sleep Apnea STOP Sleep Apnea - filling machine set up mechanic: STOP Sleep Apnea - filling machine set up mechanic Hx Hypertension Yes 02/24/25 14:24 Hx Sleep [...] Tobacco Use History Tobacco Use History - filling machine set up mechanic: Tobacco Use History - filling machine set up mechanic Tobacco Use Smoking Status Former smoker 02/27/25 17:52 Hx Tobacco Use No 02/24/25 14:24 Years Smoking Packs Smoked per Day Smoking Cessation Date was Yes - quit smoking within 15 02/24/25 14:24 within the last 15 years years Hx Smoking Cessation Date 12/27/13 02/27/25 17:52 Hx Smoking Cessation No 02/27/25 17:52 Counseling Hematologic Medial History Hematologic Hx - filling 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 Specify any problems Hx of Preganancy in last 3 No 02/24/25 14:24 Months Nurse Filling Out Transfusion EHWALCOTT 02/24/25 14:24 & Questions: Date: 02/24/25 02/24/25 14:24 Time: 14:37 02/24/25 14:24 Patient unable to answer at this time (ie. 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 History - filling machine set up mechanic: /Reproductive Hx- filling machine set up mechanic Hx Now No 02/24/25 14:24 Gestational Age [...] MENTAL HEALTH 0 12/13/15 09/01/24 History peg 067-hddygoeeouth-btqfrvgs 1 1 drp OP 4X/DAY DRY EY [...] MD Cosigner Signature: Date CC: ~ Signed [facility]08-02-2025 Discharge summary [facility] Medical Records Department [address] [place] [address] Emergency Department Summary 02/27/25 MR#: [id number] Acct: [id number] Name: MARIMAR WANG Rep #:[id number] : 1960 64 From: Pawel Cason [...] MENTAL HEALTH 0 12/13/15 09/01/24 History peg 689-ptnsfeafxrca-kcjyilwc 1 1 drp OP 4X/DAY DRY EY [...] Q12H 10/24 Unknown History a dose pack ([facility] DVT-PE Treat 30D Start) cholecalciferol (vitamin D3) [...] left sacral buttocks pain. She was prescribed Madison at that time.) Treatment and Re-Evaluation :: [...] Julio Arriaga NP Referrals: Julio Arriaga NP, GEOLOGY ASSOCIATE-C [Primary Care Provider] - 3-5 Days if not improving Activity Restrictions/Additional Instructions: 1. Stop taking the tramadol while you are on Percocet. 2. If you develop fever or chills or pain is unbearable follow-up with your doctor or return to theemergency department Print Language: Serbian Disposition Disposition: Home, Self Care What to do if you have Problems For any increased pain, shortness of breath, bleeding, nausea or vomiting, chestpain, or any unexpected problems, contact your Primary Care Provider. Call [facility] ([phone]) or report tothe closest Emergency Room. Call 911 if necessary. 02/27/251939 Cosigner Signature (if applicable): CC: STEFANOC Julio Arriaga ~ Signed [facility]08-02-2025 Discharge summary Author Pawel Cason [facility] Note Date/Time February 27, 2025 7:4 0pm [facility] Medical Records Department [address] [place] [address] Emergency Department Summary 02/27/25 MR#: [id number] Acct: [id number] Name: MARIMAR WANG Rep #:[id number] : 1960 64 From: Pawel Cason [...] MENTAL HEALTH 0 12/13/15 09/01/24 History peg 153-zyasrnbgcmfw-sasjbqma 1 1 drp OP 4X/DAY DRY EY [...] left sacral buttocks pain. She was prescribed Madison at that time.) Treatment and Re-Evaluation :: [...] Julio Arriaga NP Referrals: Julio Arriaga NP, GEOLOGY ASSOCIATE-C [Primary Care Provider] - 3-5 Days if not improving Activity Restrictions/Additional Instructions: 1. Stop taking the tramadol while you are on Percocet. 2. If you develop fever or chills or pain is unbearable follow-up with your doctor or return to the emergency department Print Language: Serbian Disposition Disposition: Home, Self Care What to do if you have Problems For any increased pain, shortness of breath, bleeding, nausea or vomiting, chestpain, or any unexpected problems, contact your Primary Care Provider. Call [facility] ([phone]) or report to the closest Emergency Room. Call 911 if necessary. 02/27/251939 <Electronically signed by Pawel Cason MD> Cosigner Signature (if applicable): CC: SINAI Arriaga ~ Signed [facility] Work Phone: 1(392) 428-320507-23-2025 Telephone encounter Note* Telephone Encounter - Lawanda Rutherford RN - 02/17/2025 2:17 PM EDT Nurse spoke to pt and requested she come in sooner if possible. Pt stated she will be here around 1. [facility]07-23-2025 Miscellaneous Notes* Telephone Encounter - Lawanda [...] 2:00 pm. Thank you. documented in this encounterSub[facility] Telephone encounter Note * Telephone Encounter - Yvette Cheng - 02/17/2025 11:26 AM EDT This has been scheduled as directed. Yvette hCeng [facility]07-23-2025 Telephone encounter Note* Telephone Encounter - Latoya Cary RN - 02/17/2025 10:55 AM EDT PSS - per patient, please reschedule today's treatment to 02/18 at 2:00 pm. Thank you. [facility]07-21-2025 Telephone encounter Note* Telephone Encounter - Nikkie Walter LPN - 02/15/2025 1:41 PM EDT Patient is aware. Nikkie Walter LPN [facility]07-21-2025 Miscellaneous Notes* Telephone Encounter - Nikkie [...] Hep B Please advise documented in this encounterSub[facility] Telephone encounter Note * Telephone Encounter - Delvin Ron APRN.CNP - 02/15/2025 1:32 PM EDT Yes, follow up with PCP. Delvin Ron APRN.CNP [facility]07-21-2025 Telephone encounter Note* Telephone Encounter - Carlos Alberto LuJordyn - 02/15/2025 1:13 PM EDT Patient called asking if she could have the following vaccinations: pneumonia RSV shingles flu Hep B Please advise [facility] Work Phone: 1(916) 529-196807-15-2025 Telephone encounter Note* Telephone Encounter - Yvette Cheng - 02/09/2025 2:27 PM EDT Spoke w pt and she has bx at [facility] on 03/02, next available w Dr Bennett for follow up is 03/19, which I scheduled. Yvette Cheng [facility]07-15-2025 Miscellaneous Notes* Telephone Encounter - Yvette Cheng - 02/09/2025 2:27 PM EDT Spoke w pt and she has bx at [facility] on 03/02, next available w [...] you. Delvin Ron APRN.CNP documented in this encounterSub[facility] Telephone encounter Note * Telephone Encounter - Delvin Ron APRN.CNP - 02/09/2025 1:03 PM EDT Please see phone note on 12/02/24. Pt. needs follow up per the phone note-nothing is scheduled. She needs to see her surgeon as well-pt. was going to schedule. Thank you. Delvin Ron APRN.QUAL FIELD MANAGER [facility]07-15-2025 Progress [facility] [address] [place] [address]. [address] [place] [address] OFFICE VISIT Date of Service: 02/09/25 MR#: [id number] Acct: [id number] Name: MARIMAR WANG Rep #: [id number] : 1960 Provider: Dr. Swapnil Garcia MD Age/Sex: 64/F Location: [facility] Status: Signed Intake Vital Signs 10/30/24 00:58 [...] MENTAL HEALTH 0 12/13/15 02/09/25 History peg 976-evohdryrjnqr-oxcgxlze 1 1 drp OP 4X/DAY DRY EY [...] Date (if applicable) CC: SINAI Arriaga ~ [facility]07-15-2025 Progress note Author Kenya Garcia [facility] Note Date/Time February 09, 2025 10:0 2am [facility] [address] [place] [address] OFFICE VISIT Date of Service: 02/09/25 MR#: [id number] Acct: [id number] Name: MARIMAR WANG Rep #: [id number] : 1960 Provider: Dr. Swapnil Garcia MD Age/Sex: 64/F Location: [facility] Status: Signed Intake Vital Signs 10/30/24 00:58 [...] MENTAL HEALTH 0 12/13/15 02/09/25 History peg 116-lbbivsgvyjwc-kwgcdupm 1 1 drp OP 4X/DAY DRY EY [...] MD Cosigner Signature: Date (if applicable) CC: GEOLOGY ASSOCIATEMadayC Julio Arriaga ~ [facility] Work Phone: 1(544) 270-568707-09-2025 Telephone encounter Note* Telephone Encounter - Rosio [...] Visit date not found Patient Phone numbers: [phone] (home) Request is for script(s) to be escript to pharmacy. [facility] [place] [id number] - [address] - [phone] Rosio Buck LPN [facility]07-09-2025 Miscellaneous Notes* Telephone Encounter - Rosio [...] Visit date not found Patient Phone numbers: [phone] (home) Request is for script(s) to be escript to pharmacy. [facility] [place] [id number] - [address] - [phone] Rosio Buck LPN documented in this encounterSub[facility] History of Present illness Narrative* Jackie [...] PATIENT PRESENTS WITH AN IMPLANTABLE OR ATTACHED MINER OPERATOR: No RADIOLOGY DEPARTMENT: MR; Exam(s) Completed: Body: Rectal. Aromatherapy Administered: No PERIPHERAL IV DATA: Site assessment: Clean,Dry and Intact, Site disposition Left in for next appointment SIGNED BY: Jackie Fan, RT(R) February 01, 2025 10:31 AM documented in this encounterSub[facility] Evaluation note* Diagnosis Onset Date Resolution Status Admit Date Crohn disease acute January 14, 2025 8:19am Irritable bowel syndrome wit h diarrhea acute January 14, 2025 8:19am [facility] Work Phone: 1(806) 125-987606-19-2025 Evaluation note* Diagnosis Onset Date Resolution Status Admit Date Crohn disease acute January 14, 2025 8:19am Irritable bowel syndrome wit h diarrhea acute January 14, 2025 8:19am Diarrhea chronic February 02, 2025 10:53am 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 acute February 09, 2025 9:32am [facility] Work Phone: 1(986) 304-185206-19-2025 Evaluation note* Diagnosis Onset Date Resolution Status Admit Date Crohn disease acute January 14, 2025 8:19am Irritable bowel syndrome wit h diarrhea acute January 14, 2025 8:19am Diarrhea chronic February 02, 2025 10:53am 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 [facility] [place] [id number] - [address] [facility] 100 - [phone] Rosio Buck LPN [facility]-18-2025 Miscellaneous Notes* Telephone Encounter - Rosio [...] Visit date not found Patient Phone numbers: [phone] (home) Request is for script(s) to be escript to pharmacy. [facility] [place] [id number] - [address] [facility] 100 - [phone] Rosio Buck LPN documented in this encounterSub[facility] Telephone encounter Note * Telephone Encounter - Lynn New LPN - 01/05/2025 1:50 PM EDT Pt. Notified she can stop the potassium. Pt. Voiced understanding. Lynn New LPN [facility]06-10-2025 Miscellaneous Notes* Telephone Encounter - Lynn [...] time. Kathya Rich LPN documented in this encounterSuburban [facility]06-[facility] Telephone encounter Note * Telephone Encounter - Josh Bennett DO - 01/05/2025 1:25 PM EDT She can stop potassium. Josh Bennett DO [facility]06-10-2025 Telephone encounter Note* Telephone Encounter - Kathya Rich LPN - 01/05/2025 11:33 AM EDT [facility]ill req from [facility]. Asking for them both to be filled so pt can refill at the same time. Kathya Rich LPN [facility]06-01-2025 Radiology Diagnostic study note [facility] Imaging Services [address] [place] [address] Pelvis without IV Contrast MR#: [id number] Acct: [id number] Name: MARIMAR WANG Rep #: [id number] : 1960 F 64 From: Huey Mendoza MD PCP: SINAI Arriola Status: REG E R Study:Pelvis without IV Contrast Date of Exam : 12/27/24 Exam# [id number] Ordering Dr: Ekaterina Croft PROCEDURE: PELVIS WITHOUT [...] Contrast IMPRESSION: No acute abnormalities. Reading Location: [id number] CC: GEOLOGY ASSOCIATE-C Julio Arriaga; [place] [facility] ~ Melt Supervisor: Signed [facility]05-16-2025 Telephone encounter Note* Telephone Encounter - Janie Rice - 12/11/2024 2:51 PM EDT Patient called and rescheduled appointment Janie Rice [facility]-16-2025 Miscellaneous Notes* Telephone Encounter - Janie Rice - 12/11/2024 2:51 PM EDT Patient called and rescheduled appointment Janie Rice * Telephone Encounter - aJnie Rice - 12/11/2024 8:45 AM EDT Cancelled 12/11 treatment per secure chat and needs rescheduled in December. 2ND YR RECLAST/QMO ORENCIA/(PORT)ORDERING PROV DR ARIAS* Janie Rice documented in this encounterSub[facility] Telephone encounter Note * Telephone Encounter - Janie Rice - 12/11/2024 8:45 AM EDT Cancelled 12/11 treatment per secure chat and needs rescheduled in December. YR RECLAST/QMO ORENCIA/(PORT)ORDERING PROV DR ARIAS* Janie Rice [facility]05-15-2025 Telephone encounter Note* Telephone Encounter - Candace Alvarenga MA - 12/10/2024 11:28 AM EDT Pharmacy faxed requesting the following refill. Requested Prescriptions Pending Prescriptions Disp Refills leflunomide (ARAVA) 20 mg tablet [Pharmacy Med Name: LEFLUNOMIDE 20MG TAB] 90 tablet 0 Sig: Take 1 tablet by mouth once daily Patient last appointment: 11/30/24 Next Appointment: Visit date not found Patient Phone numbers: [phone] (home) Request is for script(s) to be escript to pharmacy. Candace Alvarenga MA [facility]05-15-2025 Miscellaneous Notes* Telephone Encounter - Candace Alvarenga MA - 12/10/2024 11:28 AM EDT Pharmacy faxed requesting the following refill. Requested Prescriptions Pending Prescriptions Disp Refills leflunomide (ARAVA) 20 mg tablet [Pharmacy Med Name: LEFLUNOMIDE 20MG TAB] 90 tablet 0 Sig: Take 1 tablet by mouth once daily Patient last appointment: 11/30/24 Next Appointment: Visit date not found Patient Phone numbers: [phone] (home) Request is for script(s) to be escript to pharmacy. Candace Alvarenga MA documented in this encounterSub[facility] Telephone encounter Note * Telephone Encounter - Roxanne Bland RN - 12/10/2024 11:10 AM EDT Addressed in a separate phone encounter. Roxanne Bland RN [facility]05-15-2025 Miscellaneous Notes* Telephone Encounter - Roxanne [...] from 11/30 office visit documented in this encounterSub[facility]2025 NoteAccess [facility] History of Present illness Narrative* Sidney Joya [...] minutes Sidney Joya MD documented in this encounterSub[facility] Telephone encounter Note * Telephone Encounter - Rosio Buck LPN - 12/04/2024 3:48 PM EDT Patient notified and verbalized understanding. Patient asking if she can have her Orencia infusion on 12/10/2024 when she gets her Reclast infusion. Rosio Buck LPN [facility]05-09-2025 Miscellaneous Notes* Telephone Encounter - Rosio [...] low dose pred course. documented in this encounterSuburban Community Hospital & [facility]05-[facility]-20[facility] Telephone encounter Note * Telephone Encounter - Rosio Buck LPN - 12/04/2024 3:45 PM EDT Images from the original note were not included. Message Received: 3 days ago Jennifer Arias MD Russell, Tina, LPN Let patient know that we will be resuming orencia in a few weeks and I am sending low dose pred course. [facility]05-05-2025 Telephone encounter Note* Telephone Encounter - Delvin Ron APRN.CNP - 11/30/2024 3:12 PM EDT Will do after I talk with Dr. Bennett. Delvin Ron APRN.CNP [facility]05-05-2025 Telephone encounter Note* Telephone Encounter - Jordyn Fernandez - 11/30/2024 2:39 PM EDT Please advise of follow ups, etc from 11/30 office visit [facility] Work Phone: [phone]) 337-471105-05-2025 Telephone encounter Note* Telephone Encounter - Kelly Cooley MA - 11/30/2024 2:02 PM EDT I called and left a message to get patient set up for a reclast infusion ordered by Dr. Arias. Kelly Cooley MA [facility]05-05-2025 Miscellaneous Notes* Telephone Encounter - Kelly Cooley MA - 11/30/2024 2:02 PM EDT I called and left a message to get patient set up for a reclast infusion ordered by Dr. Arias. Kelly Cooley MA documented in this encounterSuburban Community Hospital [facility]25 NoteHNO ID: [id number] Author: JENNIFER ARIAS MD Service: ? Author Type: Physician Type: Progress Notes Filed: 11/30/2024 12:48 Note Text: RHEUMATOLOGY PROGRESS NOTE VIRTUAL VISIT PROGRESS NOTE This is a virtual visit using HIPAA compliant video platform. It required patient-provider interaction for the medical decision making as documented below using [employer]. I have communicated my name and active licensure. The patient?s identity and physical location were verified at the time of this visit. Either the patient or their legal surgical device sales representative has been informed of the risks [...] replaced 01/23/2023. Doing well. Dr. Odalis Cooney [facility] No longer seeing pain mgmt- not on [...] 01/30/2019 Carotid artery stenosis bilateral- US in [facility] COPD (chronic obstructive pulmonary disease) (HCC) [...] Ischemic Heart Disease Father age 42 from [place] Hypertension Sister other (Other) Brother 18 MVA Angioedema Maternal Grandmother other (CHF) Maternal Grandfather Hypertension Paternal Grandmother Stroke Paternal Grandfather Depression Daughter other (PTSD) Daughter other (Anxiety) Daughter other (svt) Daughter Diabetes Daughter Social History Tobacco Use Smoking status: Former Current packs/day: 0.00 Average packs/day: 1 pack/day for 31.0 years (31.0 ttl pk-yrs) Types (more content not included)...[facility]05-05-2025 History of Present illness Narrative* Jnenifer Arias MD - 11/30/2024 12:11 PM EDT Images from the original note were not included. RHEUMATOLOGY PROGRESS NOTE VIRTUAL VISIT PROGRESS NOTE This is a virtual visit using HIPAA compliant video platform. It required patient-provider interaction for the medical decision making as documented below using [employer] I have communicated my name and active licensure. The patient s identity and physical location wereverified at the time of this visit. Either the patient or their legal surgical device sales representative has been informed of the risks [...] replaced 01/23/2023. Doing well. Dr. Odalis Cooney [facility] No longer seeing pain mgmt- not [...] 01/30/2019 Carotid artery stenosis bilateral- US in [facility] COPD (chronic obstructive pulmonary disease) (HCC) [...] Ischemic Heart Disease Father age 42 from [place] Hypertension Sister other (Other) Brother 18 MVA [...] tablet by mouth two times a day. fknsjdrisyMEXPB-cqblsd-pipwdefjx (BMX 1:1:1) 1:1:1 liqd Take 10 mL [...] Take 80 mg by mouth once daily. hfkanq-dewkynme-nqmuvog (CREON 36) 36,000-114,000- 180,000 unit delayed release [...] which included preparing to see the patient, wozf-lb-ydkz patient care, completing clinical documentation, obtaining and/or reviewing separately obtained history, performing a medically appropriate examination, counseling and educating the pat ient/family/caregiver, ordering medications, tests, or procedures, independently interpreting results (not separately reported), communicating results to the patient/family/caregiver, and care coordination (not separately reported). documented in this encounterSuburban [facility]25 NoteAccess [facility]05-[facility] History of Present illness Narrative* Delvin Ron APRN.QUAL FIELD MANAGER - 11/30/2024 10:35 AM EDT Chief Complaint [...] OV 07/15/2025: Presented to the ED at [facility] on 09/02/2024 with complaint of perianal [...] to be a perianal mass. It extended retirement external to the anal verge and another [...] carcinoma in situ. See comment. COMMENT Immunohistochemistry ([id number]) for surrogate HPV marker (p16) will be [...] k/uL 0.15 (L) 0.21 (L) 0.24 (L) Harper% % 15.5 16.2 13.1 Abs Harper <0.87 k/uL 0.72 0.62 0.63 Eosin% % [...] as necessary for today's visit. Delvin Ron APRN.QUAL FIELD MANAGER documented in this encounterSub[facility] Telephone encounter Note * Telephone Encounter - Nikkie Walter LPN - 11/26/2024 10:43 AM EDT Patient completed starter pack of Eliquis. Please send refill. Nikkie Walter LPN [facility]05-01-2025 Miscellaneous Notes* Telephone Encounter - Nikkie Walter LPN - 11/26/2024 10:43 AM EDT Patient completed starter pack of Eliquis. Please send refill. Nikkie Walter LPN documented in this encounterSuburban [facility] Hospital [facility]04-23-2025 Telephone encounter Note * Telephone Encounter - Nikkie Walter LPN - 11/18/2024 12:30 PM EDT Compazine was sent in 11/17/2024 @ 0712 to [place]. Nikkie Walter LPN [facility]04-23-2025 Miscellaneous Notes* Telephone Encounter - Nikkie Walter LPN - 11/18/2024 12:30 PM EDT Compazine was sent in 11/17/2024 @ 0712 to [place]. Nikkie Walter LPN documented in this encounterSuburban Community [facility]04-21-2025 [facility]Access [facility] [place]04-[facility] History of Present illness Narrative* Elisabeth Quitnero RN - 11/16/2024 11:17 AM EDT AMBULATORY [...] verbalized understanding of all. Electronically Signed By: Elisabteh Quintero RN In Department: RADIATION ONCOLOGY Time spent on patient education: 10 minutes. documented in this encounterSuburban Community Hospital [facility]04-21-2025 Telephone encounter Note * Telephone Encounter [...] New LPN November 16, 2024 7:55 AM [facility]04-21-2025 Miscellaneous Notes* Telephone Encounter - Lynn [...] 16, 2024 7:55 AM documented in this encounterSuburban [facility]04-21-2025 NoteAccess [facility] [place]04-15-2025 NoteAccess [facility] [place]04-15-2025 History of Present illness Narrative* Kari Harrington RN - 11/10/2024 9:42 AM EDT Radiation Therapy - Nursing Note (OTV) PATIENT NAME: Marimar Wang PATIENT November 10, 2024 [facility] FAC[facility]/LOCATION: [place] NURSING NOTE TYPE: RECTAL Subjective Data see pain assessment Additional Data Do you want to see a Director Of Food And Beverage Services? No, strongly encouraged but does not want to Status: Post-menopausal. Stress Scale: On a scale of 0 to 10, what number best describes how much distress you have experienced in the past week?(0 being no distress and 10 being extreme distress) 4 Social work notified: Pt denied need to see social media marketing specialist at this time. Nursing Assessment Fatigue: moderate; [...] function pain she is expeirencing is from [facility] since fall a few weeks ago SIGNED [...] planned. Sidney Joya MD documented in this encounterSuburban Community Hospital [facility]04-15-2025 NoteAccess [facility] [place]04-14-2025 NoteAccess [facility] [place]04-14-2025 History of Present illness Narrative* Delvin Ron [...] OV 07/15/2025: Presented to the ED at [facility] on 09/02/2024 with complaint of perianal [...] to be a perianal mass. It extended retirement external to the anal verge and another [...] carcinoma in situ. See comment. COMMENT Immunohistochemistry ([id number]) for surrogate HPV marker (p16) will be [...] k/uL 0.36 (L) 0.31 (L) 0.17 (L) Harper% % 13.6 11.7 9.6 Abs Harper <0.87 k/uL 0.32 0.47 0.25 Eosin% % [...] as necessary for today's visit. Delvin Ron APRN.QUAL FIELD MANAGER documented in this encounterSuburban Community Hospital & [facility]04-14-2025 [facility]04-14-2025 History of Present illness Narrative* Latoya Cary RN - 11/09/2024 7:25 AM EDT Patient is here for IVAD port flush/blood draw per Nursing Mikana protocol. IVAD is located in right upper [...] Patient tolerated procedure well. documented in this encounterSuburban Community Hospital & [facility]04-11-2025 NoteHNO ID: [id number] Author: BETSEY GUIDO RN Service: ? Author Type: Registered Nurse Type: Progress Notes Filed: 11/06/2024 09:56 Note Text: Denies any pain or discomfort at this time. States had occasional nausea [facility] History of Present illness Narrative* Betsey Guido RN - 11/06/2024 9:56 AM EDT Denies any pain or discomfort at this time. States had occasional nausea during treamtent documented in this encounterSuburban Community Hospital & [facility]04-10-2025 Telephone encounter Note * Telephone Encounter [...] the rolator prescription we had sent to [facility] is going to cost her $59/month. Pt is inquiring if there is a different provider that would possible be cheaper. Pt asking if [facility] is an option. SW to call [facility] [...] in Care Team tab: Yes LYLE Massey-Malena [facility]04-10-2025 Miscellaneous Notes* Telephone Encounter - Raul Hendrix LISW - 11/05/2024 9:51 AM EDT SOCIAL WORK FOLLOW UP NOTE: [facility] Date of service: November 05, 2024 Marimar Wang is being seen for a follow up social work visit. Today's visit includes: patient TOPICS ADDRESSED: SW met with pt this date regarding financial concerns. Pt reports the rolator prescription we had sent to [facility] is going to cost her $59/month. Pt is inquiring if there is a different provider that would possible be cheaper. Pt asking if [facility] is an option. SW to call [facility] and obtain quote if possible. Pt also reported concern there her clinic bill is probably really big by now. Pt alluded to overall financial hardship. SW discussed with pt the [facility] katelyn and provided pt with documents [...] tab: Yes LYLE Massey-Malena documented in this encounterSuburban Community Hospital & [facility]2025 NoteAccess Hospital [place]2025 History of Present illness Narrative* Kari Harrington, RN - 11/03/2024 9:40 AM EDT Radiation Therapy - Nursing Note (OTV) PATIENT NAME: Marimar Wang PATIENT November 03, 2024 [facility]AC[facility]/LOCATION: [place] NURSING NOTE TYPE: RECTAL Subjective Data see pain assessment, using silvadene and aquaphor Additional Data Do you want to see a Director Of Food And Beverage Services? No Status: Post-menopausal. Stress Scale: On a scale of 0 to 10, what number best describes how much distress you have experienced in the past week?(0 being no distress and 10 being extreme distress) 4 Social work notified: Pt denied need to see social media marketing specialist at this time. Nursing Assessment Fatigue: increased [...] planned. Sidney Joya MD documented in this encounterSuburban Community Hospital [facility]2025 NoteAccess Hospital [place]04-07-2025 NoteAccess [facility] [place]04-07-2025 History of Present illness Narrative* Estefania Shine RN - 11/02/2024 11:02 AM EDT Patient arrives after radiation treatment with walker. States that she tripped and fell Saturday night using the bedside commode. She lives with her daughter and they went to the [facility] ER where she was evaluated. Report received and states scan of head and hips showed no bleed or fracture respectively.Pt states that she is bruised on my bottom and goes to right hip Taking percocet for the pain that was Rx from [facility] and controlling pain. Port was placed Saturday afternoon and is ecchymotic. Pt has been applying ice that is relieving mostof the pain. Port is working with a good blood return. Dr Bennett updated on the above and no additional orders received. States to proceed with treatment. Rx sent for Emla cream for port. Estefania Shine RN documented in this encounterSuburban Community Hospital & [facility]04-04-2025 NoteAccess Hospital [place]04-04-2025 History of Present illness Narrative* Josh Bennett [...] OV 07/15/2025: Presented to the ED at [facility] on 09/02/2024 with complaint of perianal [...] to be a perianal mass. It extended retirement external to the anal verge and another [...] carcinoma in situ. See comment. COMMENT Immunohistochemistry ([id number]) for surrogate HPV marker (p16) will be [...] 01/30/2019 Carotid artery stenosis bilateral- US in [facility] COPD (chronic obstructive pulmonary disease) (HCC) [...] SPEC WHEN PFRMD 09/23/[address] Tapai EGD 01/30/2019 large hiatal hernia with Homer [...] by mouth every 6 hours as needed. mgquripejpGDIAE-zdysrk-bekzbvrri (BMX 1:1:1) 1:1:1 liqd Take 10 mL [...] Take 80 mg by mouth once daily. qxklrb-dtlwvzfn-ixowgdr (CREON 36) 36,000-114,000- 180,000 unit delayed release [...] Ischemic Heart Disease Father age 42 from [place] Hypertension Sister other (Other) Brother 18 MVA [...] necessary. Josh Bennett DO documented in this encounterSuburban Community Hospital & [facility]04-04-2025 Radiology Diagnostic study note [facility] Imaging Services [address] [place] [address] HIP, UNI W/ Pelvis 2-3 Views MR#: [id number] Acct: [id number] Name: MARIMAR WANG Rep #: [id number] : 1960 F 64 From: Jonel Mariee MD PCP: [facility] Arriola Status: REG E R Study:HIP, UNI W/ Pelvis 2-3 Views Date of Ex am: 10/30/24 Exam# [id number] Ordering Dr: Aleyda Ambriz DO PROCEDURE: HIP, [...] lower left sacroiliac joint noted. Reading Location: [facility] CC: GEOLOGY ASSOCIATE-C Julio Arriaga; Gaudencio Ambriz DO ~ Melt Supervisor: Signed [facility]04-04-2025 Radiology Diagnostic study note [facility] Imaging Services [address] [place] [id number] Brain/Head without Contrast MR#: [id number] Acct: [id number] Name: MARIMAR WANG Rep #: [id number] 5 : 1960 F 64 From: Jonel Mariee MD PCP: [facility] Ar[facility] Status: REG E R Study:Brain/Head without Contrast Date of Exa m: 10/30/24 Exam# [id number] Ordering Dr: Aleyda Ambriz DO PROCEDURE: BRAIN/HEAD [...] mass effect or calvarial fracture. Reading Location: [id number] CC: [facility] Arriaga; Gaudencio Ambriz DO ~ Melt Supervisor: Signed [facility]04-02-2025 Telephone encounter Note* Telephone Encounter - Kari Harrington RN - 10/28/2024 1:58 PM EDT Pt was seen at [facility] ER over weekend and had a ash cath inserted due to c/o bladder pain and spasm. Dr Viraj Abreu (covering for DR Joya) was aware of this during OTV 10/27/24. Herurine from [facility] was negative. Her residual urine was 100ml.Dr [...] void or feels she is not emptying. [facility]04-02-2025 Miscellaneous Notes* Telephone Encounter - Kari Harrington RN - 10/28/2024 1:58 PM EDT Pt was seen at [facility] ER over weekend and had a ash cath inserted due to c/o bladder pain and spasm. Dr Viraj Abreu (covering for DR Joya) was aware of this during OTV 10/27/24. Herurine from [facility] was negative. Her residual urine was 100ml.Dr [...] she is not emptying. documented in this encounterSuburban [facility]04-01-2025 NoteAccess Hospital [place]04-01-2025 History of Present illness Narrative* Ricci Abreu MD - 10/27/2024 9:35 AM EDT Radiation Therapy - Nursing Note (OTV) PATIENT NAME: Marimar Wang PATIENT October 27, 2024 [facility]/LOCATION: [place] NURSING NOTE TYPE: RECTAL Subjective Data bladder symptoms improving with ash and AZO use, states had 1200ml output in 12 hour period. Urine clear and discomfort resolved. Mouths sores from chemo have resolved so eating better, only one meal a day but snacking thru out day Additional Data Do you want to see a Director Of Food And Beverage Services? No Status: Post-menopausal. Stress Scale: On a scale of 0 to 10, what number best describes how much distress you have experienced in the past week?(0 being no distress and 10 being extreme distress) 1 Social work notified: Pt denied need to see social media marketing specialist at this time. Nursing Assessment Fatigue: increased [...] she should get a plan for her sah from her outside physician moraima. Continue radiation as planned. Ricci Abreu MD documented in this encounterSuburban Community Hospital [facility]03-31-2025 Telephone encounter Note * Telephone Encounter - Nikkie Walter LPN - 10/26/2024 4:40 PM EDT Patient is scheduled for port placement on 10/30/2024. I will cancel PICC line at [facility]. Left message at [facility] IR to cancel PICC appointment. Patient is aware. Nikkie Walter LPN [facility]03-31-2025 Miscellaneous Notes* Telephone Encounter - Nikkie Walter LPN - 10/26/2024 4:40 PM EDT Patient is scheduled for port placement on 10/30/2024. I will cancel PICC line at [facility]. Left message at [facility] IR to cancel PICC appointment. [...] to keep appointment for PICC placement at [facility] on 10/29/2024. Nikkie Walter LPN [...] advise. Nikkie Walter LPN documented in this encounterSuburban Community Hospital & [facility]03-31-2025 Telephone encounter Note * Telephone Encounter - Jessica Dias RN - 10/26/2024 4:07 PM EDT You are scheduled for a medi port placement, On 10/30/2024. You are to arrive at 1200 pm and Report to [facility]: [facility]: Radiology Outpatient Desk [id number] You can [...] Labs: Lab-work needs to be drawn? No.. Purchasing Officer/Transportation: How will you be arriving for your procedure? Private car. You will need a responsible adult to accompany you to and from the procedure. Your patrol driver is required to stay with you until you are taken into the procedure room. Call [phone] with questions [facility]03-31-2025 Miscellaneous Notes* Telephone Encounter - Jessica Dias RN - 10/26/2024 4:07 PM EDT You are scheduled for a medi port placement, On 10/30/2024. You are to arrive at 1200 pm and Report to [facility]: [facility]: Radiology Outpatient Desk [id number] You can [...] Labs: Lab-work needs to be drawn? No.. Purchasing Officer/Transportation: How will you be arriving for your procedure? Private car. You will need a responsible adult to accompany you to and from the procedure. Your patrol driver is required to stay with you until you are taken into the procedure room. Call [phone] with questions documented in this encounterSuburban Community Hospital & [facility]03-31-2025 Telephone encounter Note * Telephone Encounter - Jessica Dias RN - 10/26/2024 2:00 PM EDT Unable to reach pt regarding pre procedure instructions. Call back number provided. [facility]03-31-2025 Miscellaneous Notes* Telephone Encounter - Jessica Dias RN - 10/26/2024 2:00 PM EDT Unable to reach pt regarding pre procedure instructions. Call back number provided. documented in this encounterSuburban Community Hospital & [facility]03-31-2025 Telephone encounter Note * Telephone Encounter - Leilani Nayak - 10/26/2024 1:40 PM EDT Secure chat sent to see when the first available IR port placement can be done Leilani Valdez Pss [facility]03-31-2025 Telephone encounter Note* Telephone Encounter - Nikkie Walter LPN - 10/26/2024 1:00 PM EDT PSS- please contact patient MORAIMA to schedule IR port placement at first available site patient is willing to go to. If patient can't get port placed prior to 11/02/2024's treatment, she will still need to keep appointment for PICC placement at [facility] on 10/29/2024. Nikkie Walter LPN [facility]03-31-2025 Telephone encounter Note* Telephone Encounter - Josh Bennett DO - 10/26/2024 12:58 PM EDT Filed. Thank you. Josh Bennett DO [facility]03-31-2025 Telephone encounter Note* Telephone Encounter - Josh Bennett DO - 10/26/2024 12:50 PM EDT I have no problem ordering port placement for her if she is going to continue on her Orencia. However, I agree we may not have time to have one placed for her treatment next week. If not, then she will need a PICC line. Josh Bennett DO [facility]03-31-2025 Telephone encounter Note* Telephone Encounter - [...] to 11/02/2024. Please advise. Nikkie Walter LPN [facility]03-31-2025 Telephone encounter Note* Telephone Encounter - Nikkie Walter LPN - 10/26/2024 10:39 AM EDT Patient went to [facility] ER for SOB and chest pain on 10/24/2024. Ash was placed and patient to followup with Dr. Scott. No need to have bladder scan. Dr. Bennett is aware and has reviewed the [facility] records (including new UAresults). Nikkie Walter LPN [facility]03-31-2025 Miscellaneous Notes* Telephone Encounter - Nikkie Walter LPN - 10/26/2024 10:39 AM EDT Patient went to [facility] ER for SOB and chest pain on 10/24/2024. Ash was placed and patient to followup with Dr. Scott. No need to have bladder scan. Dr. Bennett is aware and has reviewed the [facility] records (including new UAresults). Nikkie Walter LPN * Telephone Encounter - Roxanne Bland RN - 10/23/2024 10:14 AM EDT Nurse was unavailable to do bladder scan today. Patient scheduled at [facility] on 10/26. Dr. Bennett, please [...] and is unable to travel outside of [place]. Patient is willing togo to [facility] if this is a possibility. Called [facility]. Faxed order to #[phone]. Patient notified. She will call [facility] to schedule. Roxanne Bland RN [...] speak with Nikkie today. documented in this encounterSuburban Community Hospital & [facility]03-31-2025 Telephone encounter Note * Telephone Encounter - Kari Harrington RN - 10/26/2024 10:29 AM EDT lona Oliveira [facility]03-31-2025 Miscellaneous Notes* Telephone Encounter - Kari Harrington RN - 10/26/2024 10:29 AM EDT lona Oliveira * Telephone Encounter - Kari Harrington RN - 10/26/2024 10:14 AM EDT Pt here for radiation treatment. She reports going to [facility] ER on 10/24/24. Shewent for shortness of [...] [facility]Dr [facility] We will re-assess tomorrow. documented in this encounterSuburban Community Hospital [facility]03-31-2025 Telephone encounter Note * Telephone Encounter - Kari Harrington RN - 10/26/2024 10:14 AM EDT Pt here for radiation treatment. She reports going to [facility] ER on 10/24/24. Shewent for shortness of [...] [facility] We will re-assess tomorrow. [facility]03-29-2025 Radiology Diagnostic study note [facility] Imaging Services [address] [place] [address] CTA Chest W/WO Contrast MR#: [id number] Acct: [id number] Name: MARIMAR WANG Rep #: [id number] 5 : 1960 F 64 From: Holly Obrien MD PCP: [facility] Status: REG E R Study:CTA Chest W/WO Contrast Date of Exam: 10/24/24 Exam# [id number] Ordering Dr: Josh Disla GEOLOGY ASSOCIATE-Marga PROCEDURE: CTA CHEST W/WO CONTRAST 10/24/2024 REASON [...] in the upper lung zones. Reading Location: [facility] CC: [facility] Arriaga; [facility] Bates ~ Melt Supervisor: Signed [facility]03-29-2025 Radiology Diagnostic study note [facility] Imaging Services [address] [place], [place] [id number] Abdomen/Pelvis W IV Cont ONLY MR#: [id number] Acct: [id number] Name: MARIMAR WANG Rep #: [id number] 4 : 1960 F 64 From: Holly Obrien MD PCP: [facility] Ar[facility] Status: REG E R Study:Abdomen/Pelvis W IV Cont ONLY Date of E xam: 10/24/24 Exam# [id number] Ordering Dr: Josh Disla PROCEDURE: ABDOMEN/PELVIS W [...] ROSALIEJUAN CC: [facility] Arriaga; [facility] Bates ~ Melt Supervisor: Signed [facility]03-28-2025 Telephone encounter Note* Telephone Encounter - Roxanne Bland RN - 10/23/2024 10:14 AM EDT Nurse was unavailable to do bladder scan today. Patient scheduled at [facility] on 10/26. Dr. Bennett, please review UA results. Thank you. Roxanne Bland RN [facility]03-27-2025 Telephone encounter Note* Telephone Encounter - [...] and XRT nurse informed. Roxanne Bland RN [facility]03-27-2025 Telephone encounter Note* Telephone Encounter - Roxanne Bland RN - 10/22/2024 2:46 PM EDT Spoke to patient. Patient stated [facility] will contact her to schedule US. Patient will update this nurse once the appointment has been scheduled. Roxanne Bland RN [facility]03-27-2025 Miscellaneous Notes* Telephone Encounter - Roxanne Bland RN - 10/22/2024 2:46 PM EDT Spoke to patient. Patient stated [facility] will contact her to schedule US. Patient will update this nurse once the appointment has been scheduled. Roxanne Bland RN documented in this encounterSuburban Community Hospital [facility]03-27-2025 Telephone encounter Note * Telephone Encounter [...] and is unable to travel outside of [place]. Patient is willing togo to [facility] if this is a possibility. Called [facility]. Faxed order to #[phone]. Patient notified. She will call [facility] to schedule. Roxanne Bland RN [facility]03-27-2025 Telephone encounter Note* Telephone Encounter - Karly Carter LPN - 10/22/2024 9:47 AM EDT Urology is not in clinic until Sunday October 27, 2024. We can see if locations are available if sheis able to go to surrounding facility for appointment. [facility]03-27-2025 Telephone encounter Note* Telephone Encounter - Jordyn Fernandez - 10/22/2024 9:27 AM EDT This would be for today. - can we see if patient can get a post void residual US tomorrow in Urology? T [facility] Work Phone: 1(797) 464-796003-26-2025 Telephone encounter Note* Telephone Encounter - Roxanne [...] in Urology? Thank you. Roxanne Bland, LÓPEZ [facility]03-26-2025 Telephone encounter Note* Telephone Encounter - [...] and this feels different. Nikkie Walter LPN [facility]03-26-2025 Telephone encounter Note* Telephone Encounter - Jordyn Fernandez - 10/21/2024 3:55 PM EDT Patient states she is having urgency and frequency and is unable to go all the way. She is asking to speak with Nikkie today. [facility]03-26-2025 Telephone encounter Note* Telephone Encounter - Nikkie Walter LPN - 10/21/2024 1:28 PM EDT Patient is scheduled for PICC line placement 10/29/2024 @ [facility] with a 10:30 arrival time. Patient isaware of appointment date and time. Nikkie Walter LPN [facility]03-26-2025 Miscellaneous Notes* Telephone Encounter - Nikkie Walter LPN - 10/21/2024 1:28 PM EDT Patient is scheduled for PICC line placement 10/29/2024 @ [facility] with a 10:30 arrival time. Patient isaware of appointment date and time. Nikkie Walter LPN * Telephone Encounter - Nikkie Walter LPN - 10/21/2024 12:19 PM EDT Patient is aware of all appointment dates and times. I will contact her with a time for the PICC line once [facility] gets back to me. [...] updates. Nikkie Walter LPN documented in this encounterSub[facility] Telephone encounter Note * Telephone Encounter - Nikkie Walter LPN - 10/21/2024 12:19 PM EDT Patient is aware of all appointment dates and times. I will contact her with a time for the PICC line once [facility] gets back to me. Please leave this note in the box until then. Nikkie Walter LPN [facility]03-26-2025 Telephone encounter Note* Telephone Encounter - Leilani Nayak - 10/21/2024 9:39 AM EDT Patient has been scheduled for the below requested appointments Leilani Lu [facility]03-26-2025 Telephone encounter Note* Telephone Encounter - Nikkie Walter LPN - 10/21/2024 9:28 AM EDT Orders faxed. See phone note. Nikkie Walter LPN [facility]03-26-2025 Miscellaneous Notes* Telephone Encounter - Nikkie Walter LPN - 10/21/2024 9:28 AM EDT Orders faxed. See phone note. Nikkie Walter LPN * Telephone Encounter - Nikkie Walter LPN - 10/20/2024 5:00 PM EDT I will fax orders to [facility] tomorrow (10/21/2024). Nikkie Walter LPN * Telephone Encounter - Johs Bennett DO - 10/20/2024 4:19 PM EDT [...] port? Nikkie Walter LPN documented in this encounterSuburban [facility]03-[facility] Telephone encounter Note * Telephone Encounter [...] patient with scheduling updates. Nikkie Walter LPN [facility]03-25-2025 Telephone encounter Note* Telephone Encounter - Nikkie Walter LPN - 10/20/2024 5:00 PM EDT I will fax orders to [facility] tomorrow (10/21/2024). Nikkie Walter LPN [facility]03-25-2025 Telephone encounter Note* Telephone Encounter - Josh Bennett DO - 10/20/2024 4:19 PM EDT Yes, she will need another PICC line since the second cycle is a Sat-Saturday infusion 5FU. Won't be using mitomycin, so hopefully she won't be as sick. We'll pull PICC when pump off on that Saturday. Josh Bennett DO [facility]03-25-2025 Telephone encounter Note* Telephone Encounter - Nikkie Walter LPN - 10/20/2024 11:28 AM EDT Patient's PICC line DC'd d/t clot. She started Eliquis 10/19/2024. Next scheduled lab/OV is 10/26/2024 and next treatment is scheduled 11/02/2024. Should patient have another PICC placed in right arm for treatment or a port? Nikkie Walter LPN [facility]03-25-2025 [facility]Access [facility] [place]03-[facility] History of Present illness Narrative* Shawn Beltran [...] with BM, notes spontaneous anal d/c of athzff-iufmzgz-ptlkbyhd w/o warning 3-4 times a day. EXAM: [...] NAME: Marimar Wang PATIENT October 20, 2024 [facility]/LOCATION: [place] NURSING NOTE TYPE: ATHLETE MANAGER - FEMALE PELVIS Subjective Data My arm is doing better now since yesterday. I'm having akhtar/ green discharge x2-3 a day. Additional Data Do you want to see a Director Of Food And Beverage Services? No Status: Post-menopausal. Stress Scale: On a scale of 0 to 10, what number best describes how much distress you have experienced in the past week?(0 being no distress and 10 being extreme distress) 2 Social work notified: Pt denied need to see social media marketing specialist at this time. Nursing Assessment Fatigue: increased [...] Aquaphor Skin Sensation: mild burning Focused Assessment ATHLETE MANAGER - FEMALE 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 Rectal pain: Moderate. Urinary frequency (D/N): 8/2.Vaginal bleeding: No. Rectal pain only when utilizing restroom. SIGNED by: Tamia Rodriguez RN documented in this encounterSuburban [facility]03-24-2025 Telephone encounter Note * Telephone Encounter - Nikkie Walter LPN - 10/19/2024 3:14 PM EDT Patient is aware to hold Plavix while on Eliquis. Eliquis medication instructions reviewed. Patient verbalized understanding. Nikkie Walter LPN [facility]03-24-2025 Miscellaneous Notes* Telephone Encounter - Nikkie [...] while on Eliquis. She will need to pick up driver this Rx today and take as directed. Nikkie Walter LPN * Telephone Encounter - Josh Bennett DO - 10/19/2024 2:47 PM EDT Rx for apixaban sent. Hold Plavix. Josh Bennett DO * Telephone Encounter - Lynn New LPN - 10/19/2024 2:30 PM EDT Vascular lab @ [facility] contacted office, pt. Positive for DVT in left Axillary Vein. Lynn New LPN documented in this encounterSuburban [facility]03-[facility]-2025 Telephone encounter Note * Telephone Encounter - Jordyn Fernandez - 10/19/2024 3:03 PM EDT Message relayed to patient [facility] Work Phone: [phone]) 875-490403-24-2025 Telephone encounter Note* Telephone Encounter - Nikkie Walter LPN - 10/19/2024 2:56 PM EDT Left message for patient to contact office. Eliquis is $0 for the patient and [facility] is filling it now. She is to Hold Plavix while on Eliquis. She will need to pick up driver this Rx today and take as directed. Nikkie Walter LPN [facility]03-24-2025 Telephone encounter Note* Telephone Encounter - Josh Bennett DO - 10/19/2024 2:47 PM EDT Rx for apixaban sent. Hold Plavix. Josh Bennett DO [facility]03-24-2025 Telephone encounter Note* Telephone Encounter - Lynn New LPN - 10/19/2024 2:30 PM EDT Vascular lab @ [facility] contacted office, pt. Positive for DVT in left Axillary Vein. Lynn New LPN [facility]03-24-2025 Telephone encounter Note* Telephone Encounter - Nikkie Walter LPN - 10/19/2024 12:38 PM EDT Patient is aware and verbalized understanding. Nikkie Walter LPN [facility]03-24-2025 Miscellaneous Notes* Telephone Encounter - Nikkie Walter LPN - 10/19/2024 12:38 PM EDT Patient is aware and verbalized understanding. Nikkie Walter LPN * Telephone Encounter - Josh Bennett DO - 10/19/2024 12:12 PM EDT Potassium low. Please start prescription supplement. Josh Bennett DO documented in this encounterSuburban [facility]03-24-2025 Telephone encounter Note * Telephone Encounter - Josh Bennett DO - 10/19/2024 12:12 PM EDT Potassium low. Please start prescription supplement. Josh Bennett DO [facility]03-24-2025 History of Present illness Narrative* Kiley [...] PICC line measured 41cm. documented in this encounterSuburban Community Hospital [facility]03-24-2025 NoteAccess [facility] [place]-2025 Note[facility]03-21-2025 History of Present illness Narrative* Raul Carney RN - 10/16/2024 11:20 AM EDT Delvin MOLINA at chairside to assess patient's mouth sores. Per Delvin MOLINA patient is to put baking sodapaste onto blister area of bottom lip. Patient is to continue using BMX as well. Patient stated understanding. documented in this encounterSuburban [facility]03-21-2025 Telephone encounter Note * Telephone Encounter - Roxanne Bland RN - 10/16/2024 9:02 AM EDT Patient informed of IVF appointment. Patient instructed to stop zofran/phenergan and switch to compazine. Patient stated understanding. Roxanne Bland RN [facility]03-21-2025 Miscellaneous Notes* Telephone Encounter - Roxanne [...] advise. Kathya Rich LPN documented in this encounterSuburban Community Hospital [facility]03-21-2025 Telephone encounter Note * Telephone Encounter - Janie Rice - 10/16/2024 8:57 AM EDT Patient added for hydration Janie Rice [facility]03-21-2025 Telephone encounter Note* Telephone Encounter - Josh Bennett DO - 10/16/2024 8:54 AM EDT Hydration orders entered. Have her try Compazine rather than Phenergan and Zofran. Josh Bennett DO [facility]03-21-2025 Telephone encounter Note* Telephone Encounter - Kathya Rich LPN - 10/16/2024 8:33 AM EDT Please add on for hydration (2nd floor) at 10 am this morning. Will add to schedule. Tx nurse notified. Will make pt aware. Kathya Rich LPN [facility]03-21-2025 Telephone encounter Note* Telephone Encounter - [...] can take for nausea. Roxanne Bland RN [facility]03-21-2025 Telephone encounter Note* Telephone Encounter - [...] IV hydration. Please advise. Kathya Rich LPN [facility]03-18-2025 NoteAccess [facility] [place]03-18-2025 History of Present illness Narrative* Sidney Joya [...] NAME: Marimar Wang PATIENT October 13, 2024 [facility]LOCATION: [place] NURSING NOTE TYPE: RECTAL Subjective Data no radiation related side effects, has had nausea/vomiting, mouth sorea, she got IV fluids last week and on scheduled for today Additional Data Do you want to see a Director Of Food And Beverage Services? No Status: Post-menopausal. Stress Scale: On a scale of 0 to 10, what number best describes how much distress you have experienced in the past week?(0 being no distress and 10 being extreme distress) 0 Social work notified: Pt denied need to see social media marketing specialist at this time. Nursing Assessment Fatigue: increased [...] by: Kari Harrington RN documented in this encounterSuburban Community Hospital [facility]03-18-2025 NoteAccess [facility] [place]03-17-2025 Telephone encounter Note* Telephone Encounter - Roxanne Bland RN - 10/12/2024 11:00 AM EDT Care Coordination Triage Note Cancer Mikana Situation: Patient reports Mouth pain/Mucositis , nausea [...] 4 hours. IVF tomorrow? Will discuss with NETWORK OPERATIONS ANALYST. Roxanne Bland RN October 12, 2024 11:00 AM [facility]03-17-2025 Miscellaneous Notes* Telephone Encounter - Roxanne Bland RN - 10/12/2024 11:00 AM EDT Care Coordination Triage Note Cancer Mikana Situation: Patient reports Mouth pain/Mucositis , nausea [...] 4 hours. IVF tomorrow? Will discuss with NETWORK OPERATIONS ANALYST. Roxanne Bland RN October 12, 2024 11:00 [...] patches noted. Please advise. documented in this encounterSuburban [facility]03-17-2025 Telephone encounter Note * Telephone Encounter [...] mouth. No white patches noted. Please advise. [facility]03-13-2025 Telephone encounter Note* Telephone Encounter - Roxanne Bland RN - 10/08/2024 12:03 PM EDT [facility] Care Coordination FOLLOW-UP NOTE Patient identified [...] week. Roxanne Bland RN October 08, 2024 [facility]03-13-2025 Miscellaneous Notes* Telephone Encounter - Roxanne Bland RN - 10/08/2024 12:03 PM EDT [facility] Care Coordination FOLLOW-UP NOTE Patient identified [...] RN October 08, 2024 documented in this encounterSuburban [facility]03-13-2025 NoteAccess [facility] [place]03-13-2025 History of Present illness Narrative* Lawanda Rutherford RN - 10/08/2024 10:14 AM EDT Pt's pump beeping during/after radiation. New pump connected. Rate/volume checked with second nurse-LÓPEZ MASSEY documented in this encounterCleveland [id number] NoteAccess Hospital [place]03-12-2025 History of Present illness Narrative* Raul Carney [...] like to go home. documented in this encounterSuburban [facility]03-11-2025 Telephone encounter Note * Telephone Encounter [...] after hours number protocol. Roxanne Bland RN [facility]03-11-2025 Miscellaneous Notes* Telephone Encounter - Roxanne [...] protocol. Roxanne Bland RN documented in this encounterSuburban Community Hospital & [facility]03-11-2025 NoteAccess [facility]03-11-2025 History of Present illness Narrative* Tamia Rodriguez RN - 10/06/2024 9:53 AM EDT Radiation Therapy - Nursing Note (OTV) PATIENT NAME: Marimar Wang PATIENT October 06, 2024 [facility]LOCATION: [place] NURSING NOTE TYPE: ATHLETE MANAGER - FEMALE PELVIS Subjective Data I've been nauseous. Additional Data Do you want to see a Director Of Food And Beverage Services? No Status: Post-menopausal. Stress Scale: On a scale of 0 to 10, what number best describes how much distress you have experienced in the past week?(0 being no distress and 10 being extreme distress) 5 Social work notified: Pt denied need to see social media marketing specialist at this time. Nursing Assessment Fatigue: moderate; [...] Skin Sensation: Within Normal Limits Focused Assessment ATHLETE MANAGER - FEMALE PELVIS: Rectal bleeding: No. Rectal [...] planned. Sidney Joya MD documented in this encounterSuburban Community Hospital [facility]03-11-2025 NoteAccess [facility] [place]03-11-2025 Note[facility] [place]03-11-2025 History of Present illness Narrative* Raul Hendrix LISW - 10/06/2024 9:26 AM EDT Spoke with pt regarding a rollator prescription to send to [facility]. SW printed [employer]'s quick script form and will have physician review and sign. Will fax to [employer] once completed and send to internal scanning. HARITHA Massey documented in this encounterSuburban Community Hospital [facility]03-05-2025 Note* ACP (Advance Care Planning) - Raul Hendrix LISW - 09/30/2024 11:02 AM EST Goals of Care Date of Discussion: 09/29/2024 DIscussion Participants: Marimar Wang (pt) Clinical: HARITHA Massey Patient/Family/Decision Makers: Magda Borjas (daughter) P: [phone] [place] [address] In this encounter: Explained the [place] Order of Decision Makers and patient expressed understanding. Assisted patient in completing Healthcare Power of Home Fire Alarm Installer. Patient named Magda Borjas (daughter) as agent. [...] to pt's daughter this date. HARITHA Massey [facility]03-05-2025 Miscellaneous Notes* ACP (Advance Care Planning) - Raul Hendrix LISW - 09/30/2024 11:02 AM EST Goals of Care Date of Discussion: 09/29/2024 DIscussion Participants: Marimar Wang (pt) Clinical: HARITHA Massey Patient/Family/Decision Makers: Magda Borjas (daughter) P: [phone] [address] [place] [address] In this encounter: Explained the [place] Order of Decision Makers and patient expressed understanding. Assisted patient in completing Healthcare Power of Home Fire Alarm Installer. Patient named Magda Borjas (daughter) as agent. [...] this date. HARITHA Massey documented in this encounterSuburban Community Hospital [facility]03-05-2025 History of Present illness Narrative* Azul [...] PATIENT PRESENTS WITH AN IMPLANTABLE OR ATTACHED MINER OPERATOR: No RADIOLOGY DEPARTMENT: Mammography PERIPHERAL IV DATA: Not applicable SIGNED BY: Leslie Wrighto Gabrielle September 30, 2024 11:27 AM documented in this encounterSuburban Community Hospital [facility]03-05-2025 NoteAccess [facility]03-05-2025 Note[facility]03-05-2025 History of Present illness Narrative* Juan José Cheema MD - 09/30/2024 8:56 AM EST Internet Retailer provided by Olga Jerry LPN. Vidya is [...] Living2 SAB0 IAB0 Ectopic0 Multiple0 Live Births0 Stamp Maker History LMP: 01/22/2010, Postmenopausal Age at Menarche: 9 Age at First : Age at Menopause: Stamp Maker History Comments: Sexual Activity: Not Currently; No [...] Ischemic Heart Disease Father age 42 from [place] Hypertension Sister other (Other) Brother 18 MVA [...] discussed with the Patient or Patient's Authorized Cable Weaver. As applicable, any other physician, advance practice provider, medical student, or other health professional student that will be observing or involved in the sensitive examination for educational or training purposes was discussed with the Patient or Authorized Cable Weaver. The Patient or Authorized Cable Weaver has agreed to proceed with the sensitive [...] external genitalia normal, normal Bartholin's glands, urethra, [place]'s glands, no vulvar lesions, no cervical lesions, [...] Juan José Cheema MD documented in this encounterSuburban Community Hospital [facility]03-04-2025 Telephone encounter Note * Telephone Encounter - Sarah Pearson PA-C - 09/29/2024 11:58 AM EST Saw pt virtually this AM Sarah Pearson PA-C [facility]03-04-2025 Miscellaneous Notes* Telephone Encounter - Sarah Pearson PA-C - 09/29/2024 11:58 AM EST Saw pt virtually this AM Sarah Pearson PA-C documented in this encounterSuburban Community Hospital & [facility]03-04-2025 NoteHNO ID: [id number] Author: SARAH PEARSON PA-C Service: ? Author Type: Physician Imaging Specialist Type: Progress Notes Filed: 09/29/2024 11:42 Note Text: [facility] Pep General Arthritis and Rheumatology Sarah Pearson PA-C [place]- [address] [place] [address] [place]- [address] [place] [address] [place]- [address] [place] [address] ; RHEUMATOLOGY PROGRESS NOTE VIRTUAL VISIT PROGRESS NOTE This is a virtual visit using HIPAA compliant video platform. It required patient-provider interaction for the medical decision making as documented below using [employer]. I have communicated my name and active licensure. The patient?s identity and physical location were verified at the time of this visit. Either the patient or their legal surgical device sales representative has been informed of the risks [...] replaced 01/23/2023. Doing well. Dr. Odalis [facility] No longer seeing pain mgmt- not [...] 01/30/2019 Carotid artery stenosis bilateral- US in [facility] COPD (chronic obstructive pulmonary disease) (HCC) [...] Ischemic Heart Disease Father age 42 from [place] Hypertension Sister other (Other) Brother 18 MVA Angioedema Maternal Grandmother other (CHF) Maternal Grandfather Hypertension Paternal Grandmother Stroke Paternal Grandfather Depression Daughter other (PTSD) Daughter other (Anxiety) Daughter other ( (more content not included)...[facility]03-04-2025 History of Present illness Narrative* Sarah Pearson PA-C - 09/29/2024 9:57 AM EST Images from the original note were not included. [facility] General Arthritis and Rheumatology [place]- [address] [place] [address] [place]- [address] [place] [address] [place]- [address] [place] [address] ; RHEUMATOLOGY PROGRESS NOTE VIRTUAL VISIT PROGRESS NOTE This is a virtual visit using HIPAA compliant video platform. It required patient-provider interaction for the medical decision making as documented below using [employer]. I have communicated my name and active licensure. The patient s identity and physical location wereverified at the time of this visit. Either the patient or their legal surgical device sales representative has been informed of the risks [...] replaced 01/23/2023. Doing well. Dr. Odalis [facility] No longer seeing pain mgmt- not [...] Ischemic Heart Disease Father age 42 from [place] Hypertension Sister other (Other) Brother 18 MVA [...] Take 80 mg by mouth once daily. islnwe-lbvmzhie-ouszftk (CREON 36) 36,000-114,000- 180,000 unit delayed release [...] which included preparing to see the patient, jerx-tw-thdx patient care, completing clinical documentation, obtaining and/or reviewing separately obtained history, performing a medically appropriate examination, counseling and educating the pat ient/family/caregiver, ordering medications, tests, or procedures, independently interpreting results (not separately reported), communicating results to the patient/family/caregiver, and care coordination (not separately reported). documented in this encounterSuburban Community Hospital [facility]03-04-2025 Telephone encounter Note * Telephone Encounter - Kari Harrington RN - 09/29/2024 9:44 AM EST Radiation therapist notified of change of start date to 10/05/24 [facility]03-04-2025 Miscellaneous Notes* Telephone Encounter - Kari Harrington RN - 09/29/2024 9:44 AM EST Radiation therapist notified of change of start date to 10/05/24 * Telephone Encounter - Nikkie Walter LPN - 09/28/2024 3:27 PM EST Patient is scheduled for PICC placement 10/02/2024 @ 10:00, [facility]. Patient is aware of appointment date and time. Nikkie Walter LPN * Telephone Encounter - Jordyn Fernandez - 09/28/2024 12:37 PM EST Appointments scheduled. Waiting to hear from [facility] regarding PICC line * Telephone Encounter - Jordyn Fernandez - 09/28/2024 10:47 AM EST Nikkie sent an order to [facility] requesting PICC line placement [...] weeks 3, 5, 8 (can alternate with GEOLOGY ASSOCIATE) CBC/CMP D29 DONE CBC/CMP week 8 with [...] PM EST Concurrent chemo/XRT- Marimar Wang - [id number] starting XRT on 10/06 per Mitra See [...] weeks 3, 5, 8 (can alternate with GEOLOGY ASSOCIATE) CBC/CMP D29 CBC/CMP week 8 with OV [...] CT and MRI results documented in this encounterSuburban Community Hospital [facility]03-04-2025 History of Present illness Narrative* Sidney Joya MD - 09/29/2024 12:00 AM EST MARIMAR WANG [id number] 09/29/2024 [facility] Department of Radiation Oncology [facility] RADIATION ONCOLOGY SIMULATION NOTE DATE OF SIMULATION: [...] Joya M.D./billie 53:14 PM documented in this encounterSuburban [facility] Hospital [facility]03-04-2025 History of Present illness Narrative* Sidney Joya MD - 09/29/2024 12:00 AM EST MARIMAR WANG [id number] 09/29/2024 [facility] Department of Radiation Oncology Treatment Planning Note [...] Joya M.D. 52:38 PM documented in this encounterSuburban Community Hospital [facility]03-04-2025 [facility]03-04-2025 Note[facility] [place]03-03-2025 Telephone encounter Note* Telephone Encounter - Candace Alvarenga MA - 09/28/2024 4:04 PM EST Can we change this patient's appointment to a virtual per patient's request? She is scheduled for tomorrow 09-29-24 in [place] with Sarah. [facility]03-03-2025 Miscellaneous Notes* Telephone Encounter - Candace Alvarenga MA - 09/28/2024 4:04 PM EST Can we change this patient's appointment to a virtual per patient's request? She is scheduled for tomorrow 09-29-24 in [place] with Sarah. documented in this encounterSuburban Community Hospital [facility]03-03-2025 Telephone encounter Note * Telephone Encounter - Nikkie Walter LPN - 09/28/2024 3:27 PM EST Patient is scheduled for PICC placement 10/02/2024 @ 10:00, [facility]. Patient is aware of appointment date and time. Nikkie Walter LPN [facility]03-03-2025 Telephone encounter Note* Telephone Encounter - Jordyn Fernandez - 09/28/2024 12:37 PM EST Appointments scheduled. Waiting to hear from [facility] regarding PICC line [facility] Work Phone: 1(304) 516-558903-03-2025 Telephone encounter Note* Telephone Encounter - Jordyn Fernandez - 09/28/2024 10:47 AM EST Nikkie sent an order to [facility] requesting PICC line placement [facility]03-03-2025 Telephone encounter Note* Telephone Encounter - [...] weekly labs. Thank you. Roxanne Bland RN [facility]03-03-2025 Telephone encounter Note* Telephone Encounter - [...] weeks 3, 5, 8 (can alternate with GEOLOGY ASSOCIATE) CBC/CMP D29 DONE CBC/CMP week 8 with OV (3 weeks after last dose of chemo) Thank you. Roxanne Bland RN [facility]03-02-2025 Telephone encounter Note* Telephone Encounter - Josh Bennett DO - 09/27/2024 2:45 PM EST Can treatment start on 10/05? The chemotherapy regiment is a M-F infusion of 5FU. Josh Bennett DO [facility] [facility] Telephone encounter Note* Telephone Encounter - Jordyn Fernandez - 09/25/2024 4:21 PM EST Concurrent chemo/XRT- Marimar Wang - [id number] starting XRT on 10/06 per Mitra See notes from Roxanne below for ov and labs needed with chemo scheduling Patient had chemo ed on 09/25 [facility]02-28-2025 Telephone encounter Note* Telephone Encounter - Kari Harrington RN - 09/25/2024 3:[address] I let [address] Joya know we are ready to proceed. We can let you know when sim /treatment is scheduled [facility]02-28-[facility] [place] History of Present illness Narrative* Roxanne Bland RN - 09/25/2024 2:52 PM EST This visit was completed by phone. Returned Goods Inspector Pre Chemo Patient identified by name and date of . YES Confirmed date and time for chemotherapy ? YES Other appointments (labs, imaging) discussed? 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 Please advise. Kari/Cesilia-- do you know when patient will be set up for sim? Once patient starts treatment, she will need: CBC/CMP D1 CBC weekly x 8 weeks OV weeks 3, 5, 8 (can alternate with GEOLOGY ASSOCIATE) CBC/CMP D29 CBC/CMP week 8 with OV (3 weeks after last dose of chemo) Thank you. Roxanne Bland RN [facility]02-28-2025 Telephone encounter Note* Telephone Encounter - Roxanne Bland RN - 09/25/2024 10:20 AM EST Patient is scheduled for a chemo edu today. I can discuss results at that time. Roxanne Bland RN [facility]02-27-2025 [facility] [place] History of Present illness Narrative* Kimmy Dixon [...] granddaughter will take her. documented in this encounterSub[facility] Telephone encounter Note * Telephone Encounter - Josh Bennett DO - 09/24/2024 4:58 PM EST Okay to give her results. Will proceed with chemotherapy and radiation as planned. Josh Bennett DO [facility]02-27-2025 Telephone encounter Note* Telephone Encounter - Jordyn Fernandez - 09/24/2024 3:14 PM EST Patient requesting 09/23 CT and MRI results [facility]02-26-2025 History of Present illness Narrative* Karly [...] PATIENT PRESENTS WITH AN IMPLANTABLE OR ATTACHED MINER OPERATOR: No ALLERGIES: Reviewed and unchanged CONTRAST ALLERGY: [...] 2024 TIME: 4:31 PM documented in this encounterSub[facility] [place] History of Present illness Narrative* Jackie Fan [...] PATIENT PRESENTS WITH AN IMPLANTABLE OR ATTACHED MINER OPERATOR: No ALLERGIES: Reviewed and unchanged CONTRAST ALLERGY: NO. EXAM: MRI - CONTRAST TYPE: GROUP II PERIPHERAL IV DATA: Ambulatory: A peripheral IV was started in the Left WRIST with a Angio cath: 22gauge. RADIOLOGY DEPARTMENT: MR; Exam(s) Completed: Body: Rectal SIGNATURE: RT Sheyla(R) PATIENT NAME: Marimar Wang DATE: September 23, 2024 TIME: 2:39 PM documented in this encounterSub[facility] [place]02-25-[facility] Telephone encounter Note* Telephone Encounter - Jordyn Fernandez - 09/22/2024 9:53 AM EST Patient called for genotyping lab results. Informed her they are still in process. [facility] Work Phone: 1(487) 833-426402-25-2025 Miscellaneous Notes* Telephone Encounter - Jordyn Fernandez - 09/22/2024 9:53 AM EST Patient called for genotyping lab results. Informed her they are still in process. documented in this encounterSub[facility] Telephone encounter Note * Telephone Encounter - Raul Hendrix LISW - 09/18/2024 10:15 AM EST SOCIAL WORK FOLLOW UP NOTE: [facility] Date of service: September 17, 2024 Marimar aWng is being seen for a follow up [...] Team tab: Yes Assessment Completed HARITHA Massey [facility]02-21-2025 Miscellaneous Notes* Telephone Encounter - Raul [...] Assessment Completed HARITHA Massey documented in this encounterSuburban [facility]Access [facility] [place]02-[facility] History of Present illness Narrative* Elisabeth Quintero RN - 09/17/2024 10:25 AM EST Radiation Therapy - Nursing Note (Consult) PATIENT NAME: Marimar Wang PATIENT September 17, 2024 [facility]LOCATION: [place] Chief Complaint: consult Reason for visit: Consult. Referring physician: Internal provider Dr Bennett Subjective Data: see pain assessment Additional Data Do you want to see a Director Of Food And Beverage Services? No Are you interested in information about fertility? No Status: Post-menopausal Stress Scale: On a scale of 0 to 10, what number best describes how much distress you have experienced in the past week?(0 being no distress and 10 being extreme distress) 5 Social work notified: Pt denied need to see social media marketing specialist at this time. SIGNED by: Elisabeth Quintero [...] some stool leakage. She went to the [facility] ED and was found to have anal mass. CT abdomen/pelvis on 09/02/24 showed a 5.4 cm x 1.6 cm fluid collection with adjuvant fat stranding thought to be compatible with an abscess. On examination at that time by Dr. Kenya Garcia, She had a perianal mass. This extended retirement external to the anal verge and seemed [...] Take 80 mg by mouth once daily. wqvxho-lbvbzqyg-iwocues (CREON 36) 36,000-114,000- 180,000 unit delayed release [...] 01/30/2019 Carotid artery stenosis bilateral- US in [facility] COPD (chronic obstructive pulmonary disease) ([facility]) Crohn disease ([facility]) Depression Diverticulosis Fibromyalgia GERD (gastroesophageal reflux disease) GI bleed 02/2019 Hiatal hernia Repaired 05/07/19 Hyperlipidemia Hypertension Insomnia Iron deficiency anemia Iron deficiency anemia Osteoarthritis Osteoporosis Piriformis syndrome PVC's (premature ventricular contractions) Rheumatoid arthritis ([facility]) Sjogren's disease (HCC) Vitamin D deficiency Prior [...] Ischemic Heart Disease Father age 42 from [place] Hypertension Sister other (Other) Brother 18 MVA [...] that other personnel such as radiation therapists, sap bw architect, and physicists will partici pinon in planning and delivery of radiation treatment. Permanent tattoo jimenez will be placed to aid with positioning for daily treatment and the patient consented. Patient will have a simulation procedure after she completes staging CT chest and MRI pelvis . Thank you very much for allowing us to participate in her care. Signed by: Sidney Joya MD cc: Jluio Arriaga [address] [place] [address] Josh Bennett [address] [facility] [id number] documented in this encounterSuburban Community [facility] NoteAccess [facility] [place]02-19-2025 Telephone encounter Note* Telephone Encounter - Jordyn Fernandez - 09/16/2024 1:08 PM EST Patient called and rescheduled CT and MRI to 09/23 due to transportation. [facility] Work Phone: 1(128) 636-654602-19-2025 Miscellaneous Notes* Telephone Encounter - Jordyn Fernandez [...] Jordyn Fernandez - 09/16/2024 10:28 AM EST [facility] called stating that order for [...] tomorrow.-scheduled STAT US right leg here or [facility].-FAXED TO [facility] PET scan MORAIMA. cancel- per Dr. Bennett. Separate te sent Referral to gynecology upstairs. done Referral to Dr. Joya this week if possible.-SCHEDULED CHEMO ED- Patient said to schedule the rest and she will see it on mychart documented in this encounterSuburban [facility] Telephone encounter Note * Telephone Encounter - Rosio Buck LPN - 09/16/2024 11:18 AM EST Patient sent a Optimizely[employer] message requesting the following refill. The original prescription was discontinued on 09/16/2024 by Josh Bennett DO. Renewing this prescription may not be appropriate. Requested Prescriptions Pending Prescriptions Disp Refills cholecalciferol, Vitamin D3, (VITAMIN D3) 1,250 mcg (50,000 unit) cap capsule 90 capsule 1 Sig: Take 1 capsule by mouth every other week. Patient last appointment: 05/15/2024 Next Appointment: 09/29/2024 Patient Phone numbers: [phone] (home) Request is for script(s) to be escript to pharmacy. [facility] [place], [place] [id number] - [address] [phone] Rosio Buck LPN [facility]02-19-2025 Miscellaneous Notes* Telephone Encounter - Rosio Buck LPN - 09/16/2024 11:18 AM EST Patient sent a Optimizely[employer] message requesting the following refill. The original prescription was discontinued on 09/16/2024 by Josh Bennett DO. Renewing this prescription may not be appropriate. Requested Prescriptions Pending Prescriptions Disp Refills cholecalciferol, Vitamin D3, (VITAMIN D3) 1,250 mcg (50,000 unit) cap capsule 90 capsule 1 Sig: Take 1 capsule by mouth every other week. Patient last appointment: 05/15/2024 Next Appointment: 09/29/2024 Patient Phone numbers: [phone] (home) Request is for script(s) to be escript to pharmacy. [facility] [address] [place], [place] [id number] - [address] [phone] 181 Rosio Buck LPN documented in this encounterSuburban Community [facility]02[facility] Telephone encounter Note * Telephone Encounter - Nikkie Walter LPN - 09/16/2024 10:32 AM EST PSS- I spoke with Shirley- please put this patient on her scheduled at 11:30 in vascular lab. DONE Thank you. Nikkie Walter LPN [facility]02-19-2025 Telephone encounter Note* Telephone Encounter - Jordyn Fernandez - 09/16/2024 10:28 AM EST [facility] called stating that order for venous doppler needs an electronic signature. She states order came thru, but cut off at signature. Patient called right after stating the same and was informed that they are possibly scheduling intoMarch and is asking if that is ok. [facility]02-19-2025 Telephone encounter Note* Telephone Encounter - Josh Bennett DO - 09/16/2024 10:10 AM EST Thank you orders filed. Josh Bennett DO [facility]02-19-2025 Telephone encounter Note* Telephone Encounter - Nikkie Walter LPN - 09/16/2024 8:[address] Bennett: Cancel PET scan. STAT MRI pelvis and STAT CT chest. DONE Dr. Bennett- please file orders. PSS- please contact patient to schedule. Nikkie Walter LPN previous AVS- Labs tomorrow.-scheduled STAT US right leg here or [facility].-FAXED TO [facility] PET scan MORAIMA. cancel- per Dr. Bennett. Separate te sent Referral to gynecology upstairs. done Referral to Dr. Joya this week if possible.-SCHEDULED CHEMO ED- Patient said to schedule the rest and she will see it on mychart [facility]02-18-2025 Telephone encounter Note* Telephone Encounter - Janie Rice - 09/15/2024 5:00 PM EST Labs tomorrow.-scheduled STAT US right leg here or [facility].-FAXED TO [facility] PET scan MORAIMA. cancel- per Dr. Bennett. Separate te sent Referral to gynecology upstairs. done Referral to Dr. Joya this week if possible.-SCHEDULED CHEMO ED- DONE Patient said to schedule the rest and she will see it on mychart Janie Rice [facility]02-18-2025 Miscellaneous Notes* Telephone Encounter - Janie Rice - 09/15/2024 5:00 PM EST Labs tomorrow.-scheduled STAT US right leg here or [facility].-FAXED TO [facility] PET scan MORAIMA. cancel- per Dr. Bennett. Separate te sent Referral to gynecology upstairs. done Referral to Dr. Joya this week if possible.-SCHEDULED CHEMO ED- DONE Patient said to schedule the rest and she will see it on mychart Janie Rice documented in this encounterSuburban Community [facility] History of Present illness Narrative* Josh [...] Interim history: Presented to the ED at [facility] on 09/02/2024 with complaint of perianal [...] to be a perianal mass. It extended retirement external to the anal verge and another [...] carcinoma in situ. See comment. COMMENT Immunohistochemistry ([id number]) for surrogate HPV marker (p16) will be [...] 01/30/2019 Carotid artery stenosis bilateral- US in [facility] COPD (chronic obstructive pulmonary disease) (HCC) [...] Take 80 mg by mouth once daily. potqjm-fasphlin-eitvvpk (CREON 36) 36,000-114,000- 180,000 unit delayed release [...] Ischemic Heart Disease Father age 42 from [place] Hypertension Sister other (Other) Brother 18 MVA [...] was discussed with the patient or authorized surgical device sales representative. The patient or authorized surgical device sales representative has agreed to proceed with the [...] her to get in touch with her medical aides teacher to see if she can hold Plavix [...] which included preparing to see the patient, xypc-jr-rtax patient care, completing clinical documentation, obtaining and/or reviewing separately obtained history, performing a medically appropriate examination, counseling and educating the pat ient/family/caregiver, ordering medications, tests, or procedures, and communicating results to thepatient/family/caregiver. Josh Bennett DO documented in this encounterSuburban [facility]02[facility] NoteAccess Hospital [place]02-13-2025 Telephone encounter Note* Telephone Encounter - Jennifer Arias MD - 09/10/2024 4:30 PM EST We will have to discuss this with her oncologist [facility]02-13-2025 Miscellaneous Notes* Telephone Encounter - Jennifer [...] PCP. Rosio Buck LPN documented in this encounterSuburban Community Hospital [facility] Telephone encounter Note * Telephone Encounter [...] out to her PCP. Rosio Buck LPN [facility]02-12-2025 Telephone encounter Note* Telephone Encounter - Mary Vicente LPN - 09/09/2024 7:46 AM EST Pharmacy faxed requesting the following refill. Requested Prescriptions Pending Prescriptions Disp Refills leflunomide (ARAVA) 20 mg tablet [Pharmacy Med Name: LEFLUNOMIDE 20MG TAB] 90 tablet 0 Sig: Take 1 tablet by mouth once daily Patient last appointment: 05/15/2024 Next Appointment: 09/18/2024 Patient Phone numbers: [phone] (home) Request is for script(s) to be escript to pharmacy. Mary Vicente LPN [facility]02-12-2025 Miscellaneous Notes* Telephone Encounter - Mary Vicente LPN - 09/09/2024 7:46 AM EST Pharmacy faxed requesting the following refill. Requested Prescriptions Pending Prescriptions Disp Refills leflunomide (ARAVA) 20 mg tablet [Pharmacy Med Name: LEFLUNOMIDE 20MG TAB] 90 tablet 0 Sig: Take 1 tablet by mouth once daily Patient last appointment: 05/15/2024 Next Appointment: 09/18/2024 Patient Phone numbers: [phone] (home) Request is for script(s) to be escript to pharmacy. Mary Vicente LPN documented in this encounterSuburban Community Hospital [facility]02[facility] Telephone encounter Note * Telephone Encounter - Leilani Nayak - 09/07/2024 3:31 PM EST New patient information given to the pss staff from nursing to schedule patient as a est complex with for new diagnosis. I called and spoke to Vidya and scheduled her as she requested for 09/15/24 @ 3:00pm, she confirmed this date and time Leilani Lu [facility]02-10-2025 Miscellaneous Notes* Telephone Encounter - Leilani [...] she needs to see , Per at [facility] because she had a mass in [...] on scheduling Leilani Lu documented in this encounterSuburban Community Hospital [facility]02[facility] Telephone encounter Note * Telephone Encounter - Leilani Nayak - 09/07/2024 9:16 AM EST Patient called in stating that she needs to see , Per at [facility] because she had a mass in [...] ofthis. Please advise on scheduling Leilani Lu [facility]02-06-2025 [facility] Medical Records Department [address] [place] [address] Discharge Summary 09/03/24 1552 MR#: [id number] Acct: [id number] Name: MARIMAR WANG Rep #: [id number] : 1960 64 From: Kenya Garcia MD PCP: SINAI Arriola Status:ADM AMOR Location: [address] [address] Providers Date of Admission: 09/02/24 Date of [...] mg PO QHS MENTAL HEALTH 12/13/15 peg 985-whteywbukmli-pxadegyv 1 %-0.2 %-0.2 % eye drops (Dry [...] 4 g PO PRN PRN Constipation 01/09/23 xoqujg-sogpeqle-tvomgyw 36,000-114,000-180,000 unit capsule,delay rel (Creon) See Rx Instructions PO .COMPLEX #300 caps 09/25/23 acetaminophen 500 mg tablet 1,000 mg PO Q6H PRN fever or pain 11/15/23 atorvastatin 80 mg tablet 80 mg PO QHS 11/15/23 hydrocortisone 2.5 % topical cream with perineal applicator 1 applic MT BID PRN Crohn's disease #30 grams 11/29/23 [...] Neut % (Auto) 74 (more content not included)...[facility] 09-02-2024 Evaluation note* Diagnosis Onset Date Resolution Status Admit Date Mass of anus acute August 2:24pm Perirectal abscess resolved Februa 2024 2:24pm 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 acute September 15 025 1:12pm [facility] Work Phone: 1(439) 893-457102-05-2025 [facility] Medical Records Department [address] [place] [address] History Physical Exam 09/02/24 1558 MR#: [id number] Acct: [id number] Name: MARIMAR WANG Rep #: [id number] : 1960 64 From: Kenya Garcia MD PCP: Julio Arriaga NP-C Status[place] Location: [address] [place] [address] HPI - General General Date of Admission: 09/02/24 Date of Service: 09/02/24 Chief Complaint: Rectal pain HPI Narrative MARIMAR WANG, is a 64 F who presents to the [place] emergency department with rectal pain for the [...] positive as well. Dr. Pitts is her bullard machine operator. Surgery consult was obtained and plans were made to admit the patient and perform an I D. [facility] Medical History (Updated 09/02/24 @ [...] QHS MENTAL HEALTH 6 09/01/24 History peg 538-lawhvywbllip-xffiwypn 1 1 drp OP 4X/DAY DRY EYES [...] Constipation Unknown History gram/dose oral powder (Miralax) lmbozx-zaxfvwvp-nvsjtpg See Rx Instructions PO .COMPLEX 09/01/24 Rx 36,000-114,000-180,000 unit #300 caps capsule,delay rel (Creon) acetaminophen 500 mg tablet 1,000 mg PO Q6H PRN fever or pain 11/15/23 09/01/24 History atorvastatin 80 mg tablet 80 mg PO QHS 11/15/23 09/01/24 His tory hydrocortisone 2.5 % topical cream 1 applic MT BID PRN Crohn's 10/19 Unknown Rx with [...] dicyclomine 10 mg capsul (more content not included)...[facility]02-05-2025 NoteAccess Hospital [place]02-05-2025 History of Present illness Narrative* Kimmy Dixon [...] to take her self. documented in this encounterSuburban [facility] Evaluation note* Diagnosis Onset Date Resolution [...] skin of buttock acute September 15 1:12pm [facility] Work Phone: 1(697) 260-317101-23-2025 History of Present illness Narrative* Jorge Alberto [...] PATIENT PRESENTS WITH AN IMPLANTABLE OR ATTACHED MINER OPERATOR: No RADIOLOGY DEPARTMENT: Bone Density PERIPHERAL IV DATA: Not applicable SIGNED BY: RT Sandra(R) August 20, 2024 9:29 AM documented in this encounterSuburban Community Hospital [facility] NoteAccess [facility]01-20-2025 Telephone encounter Note* Telephone Encounter - Jordyn Fernandez - 08/17/2024 4:13 PM EST Lab rescheduled as requested [facility] Work Phone: 1(763) 821-772301-20-2025 Miscellaneous Notes* Telephone Encounter - Jordyn Fernandez - 08/17/2024 4:13 PM EST Lab rescheduled as requested * Telephone Encounter - Kathya Rich LPN - 08/17/2024 2:13 PM EST Pt cannot make it into lab today. Please move her lab apt to after her bone density. Pt aware. Kathya Rich LPN documented in this encounterSuburban Community Hospital [facility]01[facility] Telephone encounter Note * Telephone Encounter - Kathya Rich LPN - 08/17/2024 2:13 PM EST Pt cannot make it into lab today. Please move her lab apt to after her bone density. Pt aware. Kathya Rich LPN [facility]11-19-2024 Telephone encounter Note* Telephone Encounter - Lynn New LPN - 06/16/2024 5:01 PM EST Pt. Aware, first dose is Lynn New LPN [facility]11-19-2024 Miscellaneous Notes* Telephone Encounter - Lynn New LPN - 06/16/2024 5:01 PM EST Pt. Aware, first dose is Lynn New LPN * Telephone Encounter - Lynn New LPN - 06/16/2024 4:56 PM EST ----- Message from Josh Bennett DO sent at 06/16/2024 3:08 PM EST ----- Low iron confirmed. Okay to start iron sucrose. documented in this encounterSuburban Community Hospital & [facility]11[facility]24 Telephone encounter Note * Telephone Encounter - Lynn New LPN - 06/16/2024 4:56 PM EST ----- Message from Josh Bennett DO sent at 06/16/2024 3:08 PM EST ----- Low iron confirmed. Okay to start iron sucrose. [facility]11[facility] Telephone encounter Note* Telephone Encounter - [...] was agreeable to having all treatments in [place]. Spoke with patient and she does want to have treatments here. Advised that her authorization for [place] is no longer open/available and that she will be treated in [place] as she has requested. Mando reschedule balance of iron infusions when she comes in for her treatment on 06/18. Lawanda Hunter [facility]11-19-2024 Miscellaneous Notes* Telephone Encounter - Lawanda Hunter - 06/16/2024 2:05 PM EST Pharmacist on duty spoke with PSS about an hour ago re: scheduling patient here for Orencia and Iron, that we could get the Orencia in time for if that worked for the patient and that the authorization/orders could be flipped to [place] and there shouldn't be an issue with [...] can have her Orencia infusions at [facility] at [facility] On[facility]. Patient does not drive in the snow and she will also be going there for iron infusions. Patient is going to contact the infusion center and see if they will be able to administer Orencia and call the office back. Rosio Buck LPN documented in this encounterSuburban Community Hospital [facility]11[facility]24 Telephone encounter Note * Telephone Encounter - Jordyn Fernandez - 06/16/2024 1:27 PM EST Please review orders and advise. Providers office states that patient would start here in June. [facility] Work Phone: 1(234) 852-342011-19-2024 Telephone encounter Note* Telephone Encounter - Rosio Buck LPN - 06/16/2024 12:25 PM EST Patient asking if she can have her Orencia infusions at [facility] at [facility]. Patient does not drive in the snow and she will also be going there for iron infusions. Patient is going to contact the infusion center and see if they will be able to administer Orencia and call the office back. Rosio Buck LPN [facility]11-18-2024 NoteAccess [facility]11-18-2024 History of Present illness Narrative* Josh Bennett, [...] 01/30/2019 Carotid artery stenosis bilateral- US in [facility] COPD (chronic obstructive pulmonary disease) (HCC) [...] Take 80 mg by mouth once daily. sfdlak-zueuuuxw-dnbffeg (CREON 36) 36,000-114,000- 180,000 unit delayed release [...] Ischemic Heart Disease Father age 42 from [place] Hypertension Sister other (Other) Brother 18 MVA [...] patient, reviewing EGD and colonoscopy reports via [facility] [facility], rxai-jo-yixb patient care, completing clinical documentation, obtaining and/or reviewing separately obtained history, performing a medically appropriate examination, counseling and educating the patient/family/caregiver, communicating with other HCPs (not separately reported), and communicating results to the patient/family/caregiver. Josh Bennett DO documented in this encounterSub[facility]11-18[facility]24 Telephone encounter Note * Telephone Encounter - Rosio Buck LPN - 06/15/2024 8:28 AM EST Pharmacy requesting the following refill. Requested Prescriptions Pending Prescriptions Disp Refills leflunomide (ARAVA) 20 mg tablet [Pharmacy Med Name: LEFLUNOMIDE 20MG TAB] 30 tablet 0 Sig: Take 1 tablet by mouth once daily Patient last appointment: 05/15/2024 Next Appointment: 09/18/2024 Patient Phone numbers: [phone] (home) Request is for script(s) to be escript to pharmacy. [facility] [address] [place] [id number] - [address] [facility] [phone] Rosio Buck LPN [facility]11-18-2024 Miscellaneous Notes* Telephone Encounter - Rosio Buck LPN - 06/15/2024 8:28 AM EST Pharmacy requesting the following refill. Requested Prescriptions Pending Prescriptions Disp Refills leflunomide (ARAVA) 20 mg tablet [Pharmacy Med Name: LEFLUNOMIDE 20MG TAB] 30 tablet 0 Sig: Take 1 tablet by mouth once daily Patient last appointment: 05/15/2024 Next Appointment: 09/18/2024 Patient Phone numbers: [phone] (home) Request is for script(s) to be escript to pharmacy. [facility] [address] [place] [address] - [address] [facility] [phone] Rosio Buck LPN documented in this encounterSuburban [facility] Hospital [facility]11-06-2024 Telephone encounter Note * Telephone Encounter - Leilani Nayak - 06/03/2024 2:34 PM EST I called and spoke to the patient and she was unable to make any of the sooner appointments with Judi Portillo CNP so she chose to stay with for 06/15/24 Leilani Lu [facility]11-06-2024 Miscellaneous Notes* Telephone Encounter - Leilani [...] she could go to Judi as a GEOLOGY ASSOCIATE. Kathya Rich LPN * Telephone Encounter - [...] 03, 2024 10:38 AM documented in this encounterSuburban [facility]11-06-2024 Telephone encounter Note * Telephone Encounter - Kathya Rich LPN - 06/03/2024 1:36 PM EST If pt wants something sooner she could go to [facility]i as a GEOLOGY ASSOCIATE. Kathya Rich LPN [facility]11-06-2024 Telephone encounter Note* Telephone Encounter - Leilani Nayak - 06/03/2024 10:55 AM EST I called and spoke to patient and scheduled her for first open appointment which was 06/15/24 with Please confirm that this appointment is ok and if anything else is needed prior to visit Leilani Lu [facility]11-06-2024 Telephone encounter Note* Telephone Encounter - Amber Rock - 06/03/2024 10:38 AM EST Patient calling in wanting to schedule her consult to hematology. Please review and advise. Amber Rock June 03, 2024 10:38 AM [facility]11-01-2024 Note* Addendum Note - Sarah Pearson PA-C - 05/29/2024 4:23 PM EDTAddended by: SARAH PEARSON on: 05/29/2024 04:23 PM Modules accepted: Orders [facility]11-01-2024 Miscellaneous Notes* Addendum Note - Sarah [...] she received Iron IV through heme/onc in [facility] several years ago. Relayed protein enriched [...] start taking at least 1 tablet daily woqm-dps-hkqbfov. Her proteinlevels are also low, increase protein in diet. Sarah Pearson PA-C 05/29/24 documented in this encounterSuburban Community Hospital [facility]11-01-2024 Telephone encounter Note * Telephone Encounter - Sarah Pearson PA-C - 05/29/2024 4:21 PM EDT If she can remember who she saw- I recommend reaching back out for an appt. Consult placed Sarah Pearson PA-C [facility]11-01-2024 Telephone encounter Note* Telephone Encounter - Candace Alvarenga MA - 05/29/2024 4:09 PM EDT Called patient and relayed message. She voiced understanding. Patient states she is unable to take Iron tablets. She states it causes vomiting. She states she received Iron IV through heme/onc in [facility] several years ago. Relayed protein enriched foods to patient. [facility]11-01-2024 Telephone encounter Note* Telephone Encounter - [...] start taking at least 1 tablet daily qvay-mcu-wqxhzzi. Her proteinlevels are also low, increase protein in diet. Sarah Pearson PA-C 05/29/24 [facility]10-18[facility]2024 NoteHNO ID: [id number] Author: SARAH PEARSON PA-C Service: ? Author Type: Physician Imaging Specialist Type: Progress Notes Filed: 05/15/2024 16:53 Note Text: [facility] Arthritis [facility] Rheumatology Sarah Pearson PA-C [place]- [address] [place] [address] [place]- [address] [place] [address] [place]- [address] [place] [address] ; RHEUMATOLOGY PROGRESS NOTE VIRTUAL VISIT PROGRESS NOTE This is a virtual visit using HIPAA compliant video platform. It required patient-provider interaction for the medical decision making as documented below using [employer]. I have communicated my name and active licensure. The patient?s identity and physical location were verified at the time of this visit. Either the patient or their legal surgical device sales representative has been informed of the risks [...] replaced 01/23/2023. Doing well. Dr. Odalis Cooney [facility] No longer seeing pain mgmt- not [...] 01/30/2019 Carotid artery stenosis bilateral- US in [facility] COPD (chronic obstructive pulmonary disease) (HCC) [...] Ischemic Heart Disease Father age 42 from [place] Hypertension Sister other (Other) Brother 18 MVA [...] Never Current Outpatient Medications (more content not included)...[facility]10-18-2024 History of Present illness Narrative* Sarah Pearson PA-C - 05/15/2024 4:26 PM EDT Images from the original note were not included. [facility] Arthritis and Rheumatology Sarah Pearson PA-C [place]- [address] [place] [address] [place]- [address] [place] [address] [place]- [address] [place] [address] ; RHEUMATOLOGY PROGRESS NOTE VIRTUAL VISIT PROGRESS NOTE This is a virtual visit using HIPAA compliant video platform. It required patient-provider interaction for the medical decision making as documented below using [employer]. I have communicated my name and active licensure. The patient s identity and physical location wereverified at the time of this visit. Either the patient or their legal surgical device sales representative has been informed of the risks [...] replaced 01/23/2023. Doing well. Dr. Odalis [facility] No longer seeing pain mgmt- not [...] 01/30/2019 Carotid artery stenosis bilateral- US in [facility] COPD (chronic obstructive pulmonary disease) (HCC) [...] Ischemic Heart Disease Father age 42 from [place] Hypertension Sister other (Other) Brother 18 MVA [...] Take 80 mg by mouth once daily. swvpgt-feizulsb-vbtorvp (CREON 36) 36,000-114,000- 180,000 unit delayed release [...] which included preparing to see the patient, eqkp-pi-bjft patient care, completing clinical documentation, obtaining and/or reviewing separately obtained history, performing a medically appropriate examination, counseling and educating the pat ient/family/caregiver, ordering medications, tests, or procedures, independently interpreting results (not separately reported), communicating results to the patient/family/caregiver, and care coordination (not separately reported). documented in this encounterSuburban [facility] Hospital [facility]06-04-2024 Note* Addendum Note - Jennifer Arias MD - 12/31/2023 3:25 PM EDTAddended by: JENNIFER ARIAS on: 12/31/2023 03:25 PM Modules accepted: Orders [facility]06-04-2024 Miscellaneous Notes* Addendum Note - Jennifer [...] cancelled. Rosio Buck LPN documented in this encounterSuburban Community Hospital [facility]06-04-2024 Telephone encounter Note * Telephone Encounter - Rosio Buck LPN - 12/31/2023 3:10 PM EDT Patient left vm stating she contacted her pharmacy to get a refill on Arava and they told her the prescription was cancelled. Rosio Buck LPN [facility]04-25-2024 History of Present illness Narrative* Jennifer [...] knee replaced 01/23/2023. Doing well. Dr. Odalis Coonye [facility] No longer seeing pain mgmt- not [...] 01/30/2019 Carotid artery stenosis bilateral- US in [facility] COPD (chronic obstructive pulmonary disease) (HCC) [...] Ischemic Heart Disease Father age 42 from [place] Hypertension Sister other (Other) Brother 18 MVA [...] Take 80 mg by mouth once daily. ylzsem-pdqaeqgx-icmmyil (CREON 36) 36,000-114,000- 180,000 unit delayed release [...] visit. Jennifer Arias MD documented in this encounterSuburban Community Hospital [facility]03-23-2024 Discharge summary Author Pawel Cason [facility] October 19, 2023 7:49pm Note Date/Time October 19, 2023 4:2 0pm [facility] Medical Records Department [address] [place] [address] Emergency Department Summary 10/19/23 MR#: [id number] Acct: [id number] Name: MARIMAR WANG Neela Rep #:[id number] 2 : 1960 63 From: Pawel Cason [...] Prior similar symptoms: No Recent Ill[facility] Medical History Acute bacterial conjunctivitis [...] HEALTH 11/13/17 [History Last Taken 11/12/17] peg 602-tnyycloujolo-xkhffrfn 1 %-0.2 %-0.2 % eye drops (Dry [...] #60 tabs 08/05/23 [Rx Last Taken Unknown] vexbch-oxkeisbd-emnrejo 36,000-114,000-180,000 unit capsule,delay rel (Creon) See Rx [...] Provider: Julio Arriaga NP Referrals: Julio Arriaga GEOLOGY ASSOCIATE, GEOLOGY ASSOCIATE-C [Primary Care Provider] - Disposition Disposition: Home, Self Care What to do if you have Problems For any increased pain, shortness of breath, bleeding, nausea or vomiting, chestpain, or any unexpected problems, contact your Primary Care Provider. Call [facility] ([phone]) or report to the closest Emergency Room. Call 911 if necessary. 10/19/231948 <Electronically signed by Pawel Cason MD> Cosigner Signature (if applicable): CC: GEOLOGY ASSOCIATE-C Julio Arriaga ~ Signed [facility] Work Phone: 1(332) 155-759403-22-2024 Miscellaneous Notes* Telephone Encounter - Roxane Reilly MA - 10/18/2023 10:29 AM EDT Pharmacy faxed requesting the following refill. Requested Prescriptions Pending Prescriptions Disp Refills leflunomide (ARAVA) 20 mg tablet [Pharmacy Med Name: LEFLUNOMIDE 20 MG TABLET] 30 tablet 2 Sig: take 1 tablet by mouth once daily Patient last appointment: 05/21/2023 Next Appointment: 11/21/2023 Patient Phone numbers: [phone] (home) Request is for script(s) to be escript to pharmacy. Roxane Reilly MA documented in this encounterSuburban Community Hospital [facility]02-19-2024 Miscellaneous Notes* Telephone Encounter - Irma Mensah - 09/16/2023 3:22 PM EST [place] [place] Pending [id number] [facility]/Portal Irma Joya, Chef Teacher documented in this encounterSuburban Community Hospital [facility]10-24-2023 History of Present illness Narrative* Sarah Pearson PA-C - 05/21/2023 11:19 AM EDT Images from the original note were not included. [facility] Arthritis and Rheumatology Sarah Pearson [address] [place] [address] RHEUMATOLOGY PROGRESS NOTE HPI: Marimar Wang is [...] replaced 01/23/2023. Doing well. Dr. Odalis Cooney [facility] No longer seeing pain mgmt- not [...] 01/30/2019 Carotid artery stenosis bilateral- US in [facility] COPD (chronic obstructive pulmonary disease) (HCC) [...] Ischemic Heart Disease Father age 42 from [place] Hypertension Sister other (Other) Brother 18 MVA [...] visit. Sarah Pearson PA-C documented in this encounterSuburban Community Hospital [facility]10-02-2023 Miscellaneous Notes* Telephone Encounter - Candace [...] Sarah Pearson PA-C 04/29/23 documented in this encounterSuburban Community Hospital & [facility]09-18-2023 Miscellaneous Notes* Telephone Encounter - Rosio [...] Visit date not found Patient Phone numbers: [phone] (home) Request is for script(s) to be escript to pharmacy. [id number] [place] [address] [place] [phone] [id number] Rosio Buck LPN documented in this encounterSuburban Community Hospital & [facility]06-29-2023 Discharge summary Author [facility] January 24, 2023 8:57am Note Date/Time January 24, 2023 8:57 am [facility] Medical Records Department [address] [place] [address] Discharge Summary 01/24/23 0855 MR#: [id number] Acct: [id number] Name: MARIMAR WANG Rep #:[id number] : 1960 62 From: Michael Rawls DO PCP: SINAI Arriola Status:ADM I N Location: [place] [address] Providers Date of Admission: 01/23/23 Primary Care [...] mg PO QHS MENTAL HEALTH 11/13/17 peg 336-iopufpedhoge-jpgxxpgq 1 %-0.2 %-0.2 % eye drops (Dry [...] prior to her surgery according to her woodwind instruments inspector instructions she also had positive MRSA on [...] GFR (MDRD) Non-Af 84, BUN/Creatinine Ratio 12.1, Yfigvtr432 H, Calcium 7.8 L Microbiology: Microbiology 01/11/23 [...] Michael Rawls Primary Care Provider: Julio Arriaga GEOLOGY ASSOCIATE Discharge Orders/Prescriptions Prescriptions: New acetaminophen 500 mg [...] Referrals / Follow Up: Julio Arriaga NP, GEOLOGY ASSOCIATE-C [Primary Care Provider] - 01/24/23 0857 <Electronically signed by Michael Rawls DO> Cosigner Signature (if applicable): CC: SINAI Arriaga; Dr. Michael Rawls DO~ Signed [facility] Work Phone: 1(409) 246-704206-29-2023 Discharge summary Author Michael Rawls [facility] January 24, 2023 8:55am Note Date/Time January 24, 2023 8:40 am [facility] Medical Records Department [address] [place] [address] Instructions for Home/Discharge Instructions 01/24/23 0839 MR#: [id number] Acct: [id number] Name: MARIMAR WANG Rep #:[id number] : 1960 62 From: Michael Rawls [...] Referrals / Follow Up: Julio Arriaga NP, GEOLOGY ASSOCIATE-C [Primary Care Provider] - 01/24/2355<Electronically signed by [facility] CC: SINAI Arriaga ~ Signed [facility] Work Phone: 1(342) 125-561606-29-2023 Progress note Author [facility] January 24, 2023 8:39am Note Date/Time January 24, 2023 8:39 am [facility] Medical Records Department [address] [place] [address] Progress Note - Orthopedic 01/24/2337 MR#: [id number] Acct: [id number] Name: MARIMAR WANG Rep #:[id number] : 1960 62 From: Michael Rawls DO PCP: Julio Arriaga GEOLOGY ASSOCIATE-C Status:ADM I N Location: MS3 AT629-6 Subjective Subjective Seen and examined. Doing well. [...] GFR (MDRD) Non-Af 84, BUN/Creatinine Ratio 12.1, Exzpmcw956 H, Calcium 7.8 L Micro: Microbiology 01/11/23 [...] Cosigner Signature (if applicable): CC: ~ Signed [facility] Work Phone: 1(964) 351-938606-28-[address] [facility] 01-23-2023 History and physical note Author Michael [facility] January 23, 2023 7:40am Note Date/Time January 23, 2023 7:40 am [facility] Medical Records Department [address] [place] [address] History & Physical Exam 01/23/23 0739 MR#: [id number] Acct: [id number] Name: MARIMAR WANG Rep #:[id number] 2 : 1960 62 From: Michael Rawls DO PCP: SINAI Arriola Status:PRE I N Location: [facility] History and Physical Date of Admission: 01/23/23 [facility] [address] [place] [address] [address] [place] [address] OFFICE VISIT Date of Service: 12/17/22 MR#: [id number] Acct: [id number] Name: MARIMAR WANG Rep #: [id number] : 1960 Provider: Dr. Michael Rawls DO Age/Sex: 62/F Location: [facility] Status: Signed Intake Intake Visit Reasons: RIGHT [...] MENTAL HEALTH 11/13/17 [History Confirmed 12/17/22] peg 953-frabvoikalfs-ahgyqlam 1 %-0.2 %-0.2 % eye drops (Dry [...] rheumatoid arthritis and corresponding medications, I did addictions counselor her off on this. She is [...] SINAI Arriaga; Dr. Michael Rawls DO~ Signed [facility] Work Phone: [phone]) 701-382306-07-2023 Miscellaneous Notes* Telephone Encounter - Elisabet Armenta Chef Teacher - 01/02/2023 11:43 AM EDT Zoledronic Acid 5mg PRECERT NOT REQUIRED [id number] 01.02.23 - 01.03.24 for 1 visit [facility] Dual/Portal Elisabet Armenta Chef Teacher documented in this encounterSuburban Community Hospital [facility]05-31-2023 Miscellaneous Notes* Telephone Encounter - Mary [...] 08? Mary Vicente LPN documented in this encounterSuburban Community Hospital & [facility]05-30-2023 Miscellaneous Notes* Telephone Encounter - Candace Alvarenga MA - 12/25/2022 2:11 PM EDT Patient sent a [employer] message requesting the following refill. This prescription has already been requested on 12-25-[address] Arias. Duplicate request Requested Prescriptions Pending Prescriptions Disp Refills leflunomide (ARAVA) 20 mg tablet 30 tablet 2 Sig: Take 1 tablet by mouth once daily. Patient last appointment: 10/18/2022 Next Appointment: no future appointment is scheduled Patient Phone numbers: [phone] (home) Request is for script(s) to be escript to pharmacy. Candace Alvarenga MA documented in this encounterSuburban Community Hospital [facility]05-30-2023 Miscellaneous Notes* Telephone Encounter - Mary Vicente LPN - 12/25/2022 1:07 PM EDT Patient sent a Assemblage message requesting the following refill. Requested Prescriptions Pending Prescriptions Disp Refills leflunomide (ARAVA) 20 mg tablet [Pharmacy Med Name: LEFLUNOMIDE 20 MG TABLET] 30 tablet 2 Sig: Take 1 tablet by mouth once daily. Patient last appointment: 10/18/2022 Next Appointment: Visit date not found Patient Phone numbers: [phone] (home) Request is for script(s) to be escript to pharmacy. Mary Vicente LPN documented in this encounterSuburban Community Hospital & [facility]04-11-[address] [facility]04-11-[address] [facility]04-11-[address] [facility]04-11-[address] [facility]04-06-2023 Miscellaneous Notes* Telephone Encounter - Tracy Jerry LPN - 11/01/2022 8:45 AM EDT documented in this encounterSuburban Community Hospital [facility]03-29-2023 Miscellaneous Notes* Telephone Encounter - Elisabet Armenta Chef Teacher - 10/24/2022 11:51 AM EDT Ori APPROVED [id number] 09.06.22 - 09.06.23 [facility] Medicare Portal Elisabet Armenta Chef Teacher documented in this encounterSuburban Community Hospital [facility]03-23-2023 History of Present illness Narrative* Jennifer [...] appointment with neurology scheduled for 08/08/2022 in [place]. Plans on possibly scheduling appointment with a [...] 01/30/2019 Carotid artery stenosis bilateral- US in [facility] COPD (chronic obstructive pulmonary disease) (HCC) [...] [facility] EGD 01/30/2019 large hiatal hernia with Hoemr erosions, likely source of GI bleed Dr. [...] Ischemic Heart Disease Father age 42 from [place] Hypertension Sister other (Other) Brother 18 MVA [...] appointment with neurology scheduled for 08/08/2022 in [place]. Patient has erythematous scaling lesions noted to [...] visit. Jennifer Arias MD documented in this encounterSuburban Community Hospital [facility]03-22-[address] [facility]02-24-2023 Miscellaneous Notes* Telephone Encounter - Candace Alvarenga MA - 09/21/2022 11:00 AM EST Pharmacy faxed requesting the following refill. Requested Prescriptions Pending Prescriptions Disp Refills leflunomide (ARAVA) 20 mg tablet [Pharmacy Med Name: LEFLUNOMIDE 20 MG TABLET] 30 tablet 2 Sig: Take 1 tablet by mouth once daily. Patient last appointment: 06/26/2022 Next Appointment: 10/18/22 Patient Phone numbers: [phone] (home) Request is for script(s) to be escript to pharmacy. Candace Alvarenga MA documented in this encounterSuburban Community Hospital [facility]02-10-2023 Miscellaneous Notes* Telephone Encounter - Sarah Vital RN - 09/07/2022 3:41 PM EST Form faxed [facility] to [facility] today by providers nurse. * Telephone Encounter - Kari Calderon LPN - 09/05/2022 4:23 PM EST rec'd from onbase. * Telephone Encounter - Sarah Vital RN - 09/05/2022 4:07 PM EST Radha with [employer] for [facility] called in and reports they have faxed over the Medical Attestation forms again to fax # [phone]. She states they just need a signature and then faxed back to fax # [phone]. documented in this encounterSuburban Community Hospital [facility]02-09-2023 Consult note Author Acute Doctor [facility] September 06, 2022 10:33am Note Date/Time September 06, 2022 1 0:34am [facility] Medical Records Department [address] [place] [address] Telemedicine Confirmation Receipt 09/06/22 MR#: [id number] Acct: [id number] Name: MARIMAR WANG Rep #:[id number] : 1960 62 From: Acute Doctor PCP: SINAI Arriola Status:REG C LI [facility] has confirmed receipt of a request for visit. This document confirms receipt of the order initiating the consult. To find the results of the consultation, please view the patient's reports for the scanned Telemed Consult. [facility] Work Phone: 1(923) 524-324801-17-2023 Miscellaneous Notes* Telephone Encounter - Mandy Buck [...] advise. Mandy Buck LPN documented in this encounterSuburban Community Hospital & [facility]01-05-2023 Instructions* Patient Instructions* Leilani Colmenares APRN.TRACY - 08/02/2022 11:12 AM EST Activity as tolerated Use Ice and/or heat as tolerated as needed documented in this encounterSuburban Community Hospital & [facility]01-05-2023 History of Present illness Narrative* Elisabet [...] not included. [facility] General Today's Date: 08/01/2022 Last Visit: 02/01/22 [...] suspiciousactivity was identified. 08/01/2022 by Leilani Colmenares APRN.QUAL FIELD MANAGER Allergies: ALLERGIES Allergen Reactions Nsaids (Non-Steroid* Anaphylaxis [...] and assume there are 5 lumbar-type vertebrae. Melt Supervisor: SABINO Transcribe Date/Time: Jul 05 2021 4:28P [...] mg BID (No RF needed today) Functional Mormonism: TENS Additional Studies: Referrals: Additional: Consider SPRINT [...] decision making from today's date. Leilani Colmenares APRN.QUAL FIELD MANAGER [facility] documented in this encounterSuburban Community Hospital [facility]12-13-2022 History of Present illness Narrative* Jorge [...] 10, 2022 12:29 PM documented in this encounterSuburban Community Hospital & [facility]11-29-2022 History of Present illness Narrative* RT [...] 26, 2022 3:18 PM documented in this encounterSuburban Community Hospital & [facility]11-29-2022 Instructions* Patient Instructions* Sarah Pearson PA-C - 06/26/2022 2:41 PM EST Check schedule- schedule [facility] infusion soon Continue Arava daily Check vit D with infusion- will decide if need to take Call cardiology and neurology for appt Schedule bone density [phone] Left hip XR today downstairs documented in this encounterSuburban Community Hospital & [facility]11-29-2022 History of Present illness Narrative* Sarah Pearson PA-C - 06/26/2022 1:52 PM EST Images from the original note were not included. [facility] General Arthritis and Rheumatology Sarah Pearson [address] [facility] [address] [phone] RHEUMATOLOGY PROGRESS NOTE HPI: Marimar Wang is [...] appointment with neurology scheduled for 08/08/2022 in [place]. Plans on possibly scheduling appointment with a [...] 01/30/2019 Carotid artery stenosis bilateral- US in [facility] COPD (chronic obstructive pulmonary disease) (HCC) [...] Ischemic Heart Disease Father age 42 from [place] Hypertension Sister other (Other) Brother 18 MVA [...] appointment with neurology scheduled for 08/08/2022 in [place]. Patient has erythematous scaling lesions noted to [...] and neurology for appt Schedule bone density [phone] Left hip XR today downstairs CY Meredith-S2 TEACHING PROVIDER (Physician/PA/PUNCHING MACHINE OPERATOR) NOTE OF PERSONAL INVOLVEMENT IN CARE: I have personally seen and examined the patient and performed the medical decision-making components. I have reviewed the Physician Imaging Specialist (PA) Student's documentation and verified the findings inthe note as written. Any additions or changes are noted in bold/italics. Signature: Sarah Pearson Date: 06/26/2022 Time: 4:29 PM JEN CruzC documented in this encounterSuburban Community [facility]11-18-2022 Miscellaneous Notes* Telephone Encounter - Irma [...] Visit date not found Patient Phone numbers: [phone] (home) Request is for script(s) to be escript to pharmacy. Jena Fish MA documented in this encounterSuburban Community Hospital & [facility]11-15-2022 Miscellaneous Notes* Telephone Encounter - Jacek Mitchell MD - 06/12/2022 1:48 PM EST Lyjeff block approved, has follow-up in Jul. Jacek Mitchell III, MD, SUJATHA * Telephone Encounter - Santa Murray LPN - 06/12/2022 9:06 AM EST [facility] Telephone Medication Refill Request Name/dose: pregabalin (LYRICA) 150 mg capsule Amount dispensed monthly: 60 Date last filled: 06-04-22 Date last seen in office: 02-01-22 (LEILANI) Provider: Jacek Mitchell MD Next scheduled visit: 08-09-22 Pharmacy: [id number] [place] [address] [address] - [phone] [address] Santa Murray LPN documented in this encounterSuburban Community Hospital & [facility]11-14-2022 Miscellaneous Notes* Telephone Encounter - Tracy [...] you. Tracy Jerry LPN documented in this encounterSuburban Community Hospital & [facility]10-20-2022 Instructions* Patient Instructions* Carol Mathews APRN.TRACY - 05/17/2022 11:50 AM EDT FACT SHEET FOR PATIENTS, PARENTS, AND CAREGIVERS EMERGENCY USE AUTHORIZATION (EUA) OF PAXLOVID FOR CORONAVIRUS DISEASE 2019 (COVID-19) You are being given this Fact Sheet because your healthcare provider believes it is necessary to provide you with PAXLOVID for the treatment of hddj-xo-uyfwivuk coronavirus disease (COVID-19) caused by the SARS-CoV-2 [...] virus. COVID-19 illnesses have ranged from very prmm-pa-avzxuc, including illness resulting in . While information [...] is an investigational medicine used to treat rhrr-vc-eysiajnu COVID-19 in adults and children [12 years [...] of using PAXLOVID to treat people with qwka-as-fpnoxlkj COVID-19. The FDA has authorized the emergency use of PAXLOVID for the treatment of abkv-tu-cisowhnx COVID-19in adults and children [12 years of [...] the medicines you take, including prescription and nuii-okv-rdqxyfv medicines, vitamins, and herbal supplements. Some medicines [...] (remdesivir) is FDA-approved for the treatment of uqzf-qf-tvoewdub COVID-19 in certain adults and children. Talk with your doctor to see if Veklury is appropriate for you. Like PAXLOVID, FDA may also allow for the emergency use of other medicines to treat people with COVID-19. Go to https://www.fda.gov/jdixokrui-psnqgrisurub-hsknrfsvdii/ara-ynpsi-zmcrheywtt-and- policy-framework/yopzvobdp-ayr-izmpujyvclfui for information on the emergency use of [...] if I am or ? There is casino porter treating women or mothers with PAXLOVID. For [...] to FDA MedWatch at www.fda.gov/medwatch or call 5-842-KTP0976 or you can reportside effects to [employer]. at the contact information provided below. Website Fax number Telephone number fabrooms How should I store PAXLOVID? Store PAXLOVID [...] (EUA). The EUA is supported by a [place] of Health and Human Service (HHS) declaration that circumstances exist to justify the emergency use of drugs and biological productsduring the COVID-19 pandemic. PAXLOVID for the treatment of yctr-vy-sjxagriy COVID-19 in adults and children [12 years [...] telephone number provided below. Website Telephone number wwwI AND [employer] (0-823-L50-PACK) You can also go to www.Rayspan.PinchPoint or call for more information. Pfizer Distributed by [employer] [place] [address] LAB-1494-2.1 Revised: 13 October 2021 FACT SHEET FOR PATIENTS, PARENTS, AND CAREGIVERS EMERGENCY USE AUTHORIZATION (EUA) OF PAXLOVID FOR CORONAVIRUS DISEASE 2019 (COVID-19) You are being given this Fact Sheet because your healthcare provider believes it is necessary to provide you with PAXLOVID for the treatment of grzo-pu-qmggilfi coronavirus disease (COVID-19) caused by the SARS-CoV-2 [...] virus. COVID-19 illnesses have ranged from very xshr-bv-ddymug, including illness resulting in . While information [...] is an investigational medicine used to treat vsxj-cc-aapzdiya COVID-19 in adults and children [12 years [...] of using PAXLOVID to treat people with llju-fo-jbfdnkxj COVID-19. The FDA has authorized the emergency use of PAXLOVID for the treatment of bcpz-bd-grjqzhfh COVID-19in adults and children [12 years of [...] the medicines you take, including prescription and sisn-jdm-xmfapmb medicines, vitamins, and herbal supplements. Some medicines [...] (remdesivir) is FDA-approved for the treatment of jarm-hk-voxaeyyx COVID-19 in certain adults and children. Talk with your doctor to see if Veklury is appropriate for you. Like PAXLOVID, FDA may also allow for the emergency use of other medicines to treat people with COVID-19. Go to https://www.fda.gov/dktrdyoot-zzhilcgopdbh-yvklgeicypd/lbc-gccoc-xqowovgeth-and- policy-framework/iimfljgjc-rwm-ckthcjlewmqqr for information on the emergency use of [...] if I am or ? There is casino porter treating women or mothers with PAXLOVID. For [...] not go away. Report side effects to [employer] at www.fda.gov/medwatch or call 4-991-XYY6584 or you can reportside effects to [employer] at the contact information provided below. Website Fax number Telephone number fabrooms How should I store PAXLOVID? Store PAXLOVID [...] (EUA). The EUA is supported by a [place] of Health and Human Service (HHS) declaration that circumstances exist to justify the emergency use of drugs and biological productsduring the COVID-19 pandemic. PAXLOVID for the treatment of xlzg-rf-slgfbbab COVID-19 in adults and children [12 years [...] telephone number provided below. Website Telephone number [employer] (8-843-C12-WNDN) You can also go to www.edulio or call for more information. Pfizer Distributed by [employer] [place] [address] LAB-1494-2.1 Revised: 13 October 2021 documented in this encounterSuburban Community Hospital & [facility]10-20-2022 History of Present illness Narrative* Carol Mathews APRN.CNP - 05/17/2022 11:42 AM EDT This Team Access Model visit is a virtual encounter. It required patient- provider interaction for the medical decision making as documented below. Patient agrees to the visit: Yes Patient Location: [place] CC: Patient presents with: Covid Test Result [...] 01/30/2019 Carotid artery stenosis bilateral- US in [facility] COPD (chronic obstructive pulmonary disease) (HCC) [...] Ischemic Heart Disease Father age 42 from [place] Hypertension Sister other (Other) Brother 18 MVA [...] simvastatin while on paxlovid and discuss with woodwind instruments inspector if she should be holding any of [...] APRN.TRACY Nirmatrelvir/Ritonavir (Paxlovid) Eligibility and Patient Discussion [facility] Formulary Restriction Criteria: Adult outpatients 18 [...] 17, 2022 11:52 AM documented in this encounterSuburban Community Hospital & [facility]10-20-2022 Miscellaneous Notes* Telephone Encounter - Betsey Mccabe LPN - 05/17/2022 9:05 AM EDT Patient returned call and went over results, notes from [facility] provider with understanding. Scheduled patient with Carol Mathews GEOLOGY ASSOCIATE at 1140 am my chart virtual visit [...] or schedule a virtual visit online through [email or web address] onlineIf interested in COVID-19 therapies. Continue supportive therapies as discussed. Be seen in the emergency room if red flag symptoms develop such as chest pain shortness of breath or difficulty breathing. Geronimo Cadena APRN.CNP documented in this encounterSuburban Community Hospital & [facility]10-19-2022 History of Present illness Narrative* Sarah De Luna APRN.QUAL FIELD MANAGER - 05/16/2022 9:25 AM EDT SUBJECTIVE: Marimar [...] 01/30/2019 Carotid artery stenosis bilateral- US in [facility] COPD (chronic obstructive pulmonary disease) (HCC) [...] Ischemic Heart Disease Father age 42 from [place] Hypertension Sister other (Other) Brother 18 MVA [...] My Chart. MDM: [facility] and Influenza testing. Vital [...] Sarah De Luna APRN.TRACY documented in this encounterSuburban Community Hospital & [facility]09-22-2022 Miscellaneous Notes* Telephone Encounter - Roxane Reilly MA - 04/19/2022 3:35 PM EDT Pharmacy faxed requesting the following refill. Requested Prescriptions Pending Prescriptions Disp Refills cyclobenzaprine (FLEXERIL) 10 mg tablet 60 tablet 2 Sig: Take 1 tablet by mouth twice daily as needed. Patient last appointment: 09/02/2019 Next Appointment: 05/31/2022 Patient Phone numbers: [phone] (home) Request is for script(s) to be escript to pharmacy. Roxane Reilly MA documented in this encounterSuburban Community Hospital & [facility]09-22-2022 Miscellaneous Notes* Telephone Encounter - Roxane Reilly MA - 04/19/2022 3:34 PM EDT Pharmacy faxed requesting the following refill. Requested Prescriptions Pending Prescriptions Disp Refills cyclobenzaprine (FLEXERIL) 10 mg tablet 60 tablet 2 Sig: Take 1 tablet by mouth twice daily as needed. Patient last appointment: 09/02/2019 Next Appointment: 04/18/2022 Patient Phone numbers: [phone] (home) Request is for script(s) to be escript to pharmacy. Roxane Reilly MA documented in this encounterSuburban Community Hospital & [facility]09-01-2022 Note ORIGINAL EXAMINATION: WHOLE BODY BONE [...] Sign Date: 03/29/2022 3:10:43 PM Ordering Provider: [facility]09-01-2022 Note ORIGINAL EXAMINATION: WHOLE BODY BONE [...] Sign Date: 03/29/2022 3:10:43 PM Ordering Provider: [facility]08-30-2022 Miscellaneous Notes* Telephone Encounter - Sarah Benedict - 03/27/2022 3:30 PM EDT pATIENTS 05/17/2022 APPOINTMENT NEEDS RESCHEDULED DUE TO PROVIDER BEING OUT OF OFFICE. lEFT MESSAGEFOR PATIENT TO GET RESCHEDULED. documented in this encounterSuburban Community Hospital & [facility]08-25-2022 Miscellaneous Notes* Telephone Encounter - Sarah Benedict - 03/22/2022 9:16 AM EDT Canceled appointment for patient, left message that she needs to call back to reschedule. * Telephone Encounter - Sarah Benedict - 03/22/2022 9:16 AM EDT ----- Message from Shelby Almonte sent at 03/22/2022 8:34 AM EDT ----- Regarding: Spine/Leilani Colmenares(QUAL FIELD MANAGER)/Missed Provider Call Subject Line Format: Medicine / [...] (Caregivers Name): na If No - Which [facility] Leadership Splitter Machine Did You Speak With Regarding This Patient: na Was an appointment scheduled (Y/N): N Reason patient was requesting visit (RFV/signs and symptoms/diagnosis) : Missed Provider Lens Silverer calling if other than patient: Patient Return call to if other than patient: na Best contact number: [phone] Thank you, Shelby Almonte March 22, 2022 8:34 AM documented in this encounterSuburban Community Hospital & [facility]08-15-2022 Miscellaneous Notes* Telephone Encounter - Rosio Buck LPN - 03/12/2022 9:49 AM EDT Pharmacy requesting the following refill. Requested Prescriptions Pending Prescriptions Disp Refills leflunomide (ARAVA) 20 mg tablet [Pharmacy Med Name: LEFLUNOMIDE 20 MG TABLET] 30 tablet 2 Sig: take 1 tablet by mouth once daily Patient last appointment: 01/30/2022 Michel VV Next Appointment: 05/31/2022 Emeka Patient Phone numbers: [phone] (home) Request is for script(s) to be escript to pharmacy. [id number] [place] [address] [phone] [id number] Rosio Buck LPN documented in this encounterSuburban Community Hospital & [facility]07-07-2022 Miscellaneous Notes* Telephone Encounter - Taylor Quintanilla - 02/01/2022 10:27 AM EDT I have attempted to contact this patient by phone, Left brief message on cell voicemail stating that our next appointment that we have in [place] is 02/28/22 if this is okay for her to give me a call backat [phone] EXT [phone] Taylor Quintanilla documented in this encounterSuburban Community Hospital & [facility]07-07-2022 Miscellaneous Notes* Telephone Encounter - Anyi [...] COVID vaccine.) Anyi Padron documented in this encounterSuburban Community Hospital & [facility]07-07-2022 Instructions* Patient Instructions* Leilani Colmenares APRN.CNP - 02/01/2022 9:56 AM EDT Activity as tolerated Use Ice and/or heat as tolerated as needed documented in this encounterSuburban Community Hospital & [facility]07-07-2022 History of Present illness Narrative* Leilani Colmenares APRN.CNP - 02/01/2022 9:36 AM EDT Images from the original note were not included. [facility] Today's Date: 02/01/2022 Last Visit: VV [...] Comments - nothing is helping Pain Assessment (RN/ENVELOPE FOLD OPERATOR) - - Current Pain Medications: o Opioids: [...] DATE OF EXAM: Jul 05 2021 3:27PM [facility] 0303 - MRI LUMBAR SPINE WO [...] and assume there are 5 lumbar-type vertebrae. Melt Supervisor[facility] Transcribe Date/Time: Jul 05 2021 4:28P Dictated [...] suspiciousactivity was identified. 02/01/2022 by Leilani Colmenares APRN.QUAL FIELD MANAGER Last Drug screen: Not Applicable appropriate. Risk [...] Reviewed and consistent, ORT low risk Functional Mormonism: No changes-continue current regimen Additional Studies: None [...] decision making from today's date. Leilani Colmenares APRN.QUAL FIELD MANAGER Pain Management [facility] * Kailyn Denney MA - 02/01/2022 [...] patient is not nervous/anxious. documented in this encounterSuburban Community Hospital & [facility]07-05-2022 History of Present illness Narrative* Sarah Pearson PA-C - 01/30/2022 12:54 PM EDT Images from the original note were not included. [facility] Arthritis and Rheumatology Sarah Pearson [address] [facility] [address] [phone] RHEUMATOLOGY PROGRESS NOTE VIRTUAL VISIT PROGRESS NOTE This is a virtual visit using Assemblage video visit. It required patient-provider interaction for [...] 01/30/2019 Carotid artery stenosis bilateral- US in [facility] COPD (chronic obstructive pulmonary disease) (HCC) [...] 09/23/2017 normal, bxs negative Dr. Tapia [facility] IMG INTRALUMINAL ESOPHAGUS-ILEUM W/I&R 10/04/2017 Normal [...] Ischemic Heart Disease Father age 42 from [place] Hypertension Sister other (Other) Brother 18 MVA [...] min Sarah Pearson PA-C documented in this encounterSuburban Community Hospital & [facility]06-24-2022 Miscellaneous Notes* Telephone Encounter - Candace Alvarenga MA - 01/19/2022 8:30 AM EDT Pharmacy faxed requesting the following refill. Pending Prescriptions Disp Refills CYCLOBENZAPRINE 10 MG TABLET 60 tablet 2 Sig: take 1 tablet by mouth twice a day if needed SHAUN: Yes Patient last appointment: 10/31/21 Next Appointment: 01/30/2022 Patient Phone numbers: [phone] (home) Request is for script(s) to be escript to pharmacy. Candace Alvarenga MA documented in this encounterSuburban Community Hospital & [facility]06-24-2022 Miscellaneous Notes* Telephone Encounter - Kiley [...] advise. Kiley Mejia LPN documented in this encounterSuburban Community Hospital & [facility]06-14-2022 Miscellaneous Notes* Telephone Encounter - Tracy [...] you. Tracy Jerry LPN documented in this encounterSuburban Community Hospital & [facility]06-09-2022 Miscellaneous Notes* Telephone Encounter - Savanna Flowers Network Developer Ppg - 01/04/2022 4:21 PM EDT [employer] APPROVED [id number] 01.25.2022 - 01.25.2023 per [facility] medicare Portal [employer] Network Developer Ppg documented in this encounterSuburban Community Hospital & [facility]04-25-2022 Miscellaneous Notes* Telephone Encounter - Kelly [...] you. Kelly Blakely LPN documented in this encounterSuburban Community Hospital & [facility]04-25-2022 Miscellaneous Notes* Telephone Encounter - Kelly [...] you. Kelly Blakely LPN documented in this encounterSuburban Community Hospital & [facility]01-31-2022 Hospital Discharge instructions Follow Up Care 08/28/2021 21:53:27 With:BELLA GILLESPIE MD, Orthopedic, Wound Care, Wound Care Service, Orthopedic, Wound Care, Wound Care Service, Orthopedic, Wound Care, Wound Care Service Address: [address] [place] [address] [address] [address]- When:09/13/2021 08:30:00 Comments:Follow up With:Patient is discharged to [facility] skilled LOC. Please call report to [phone] Address:Unknown When:1-2 days With:SELENE PIERRE Address: [address] [place] [id number] Business (1) When:1-2 days [facility] 01-31-2022 Evaluation + Plan noteExtracted from: Title:History [...] 05:45:06 EST Preoperative hemoglobin 13.7, platelets 211 [facility] 10-04-2021 History of Present illness Narrative* Lorie lCarke RT(R) - 05/01/2021 2:10 PM EDT Radiology [...] 01, 2021 2:03 PM documented in this encounterSuburban Community Hospital & [facility]09-23-2021 Miscellaneous Notes* Telephone Encounter - Selene [...] none today. Last time had diarrhea was vbpjpbpih-0-9 times last evening. 6. CONTACTS: 3 grandchildren there, but do not have symptoms. 7. CAUSE: Covid 8. HYDRATION STATUS: Dry mouth. Has weakness but can stand, cannot go very far. Last void this morning around 7:30 am. Urine was not dark. 9. OTHER SYMPTOMS: Had headache in the beginning, but they stopped. No dizziness. Not vomiting blood. 10. : No. Protocols used: [id number] documented in this encounterSuburban Community Hospital & [facility]07-14-2021 History of Present illness Narrative* Teagan [...] 08, 2021 10:52 AM documented in this encounterSuburban Community Hospital & [facility]04-26-2021 History of Past illness Narrative* Problem Noted Date Resolved Date Sacroiliitis 11/21/2020 03/06/2021 Tear of medial meniscus of right knee 09/24/2019 10/02/2019 GI bleed 01/28/2019 07/31/2019 Absolute anemia 09/05/2017 02/06/2018 Overview: Added automatically from request for surgery [id number] Morbid obesity with BMI of 40.0-44.9, adult [...] 07/31/2019 Last Assessment & Plan: She cannot bridge leverman as she used to with her hand, she thinks it is from her RA, wants a wrist splint documented as of this encounter (statuses as of 11/01/2021) [facility]04[facility]26[facility] History of Past illness Narrative* Problem Noted Date Resolved Date Sacroiliitis 11/21/2020 03/06/2021 Tear of medial meniscus of right knee 09/24/2019 10/02/2019 GI bleed 01/28/2019 07/31/2019 Absolute anemia 09/05/2017 02/06/2018 Overview: Added automatically from request for surgery [id number] Morbid obesity with BMI of 40.0-44.9, adult [...] 07/31/2019 Last Assessment & Plan: She cannot bridge leverman as she used to with her hand, she thinks it is from her RA, wants a wrist splint documented as of this encounter (statuses as of 11/02/2021) [facility] History of Past illness Narrative* Problem Noted Date Resolved Date Sacroiliitis 11/21/2020 03/06/2021 Tear of medial meniscus of right knee 09/24/2019 10/02/2019 GI bleed 01/28/2019 07/31/2019 Absolute anemia 09/05/2017 02/06/2018 Overview: Added automatically from request for surgery [id number] Morbid obesity with BMI of 40.0-44.9, adult [...] 07/31/2019 Last Assessment & Plan: She cannot bridge leverman as she used to with her hand, she thinks it is from her RA, wants a wrist splint documented as of this encounter (statuses as of 11/20/2021) [facility] History of Past illness Narrative* Problem Noted Date Resolved Date Sacroiliitis 11/21/2020 03/06/2021 Tear of medial meniscus of right knee 09/24/2019 10/02/2019 GI bleed 01/28/2019 07/31/2019 Absolute anemia 09/05/2017 02/06/2018 Overview: Added automatically from request for surgery [id number] Morbid obesity with BMI of 40.0-44.9, adult [...] 07/31/2019 Last Assessment & Plan: She cannot bridge leverman as she used to with her hand, she thinks it is from her RA, wants a wrist splint documented as of this encounter (statuses as of 11/20/2021) [facility] History of Past illness Narrative* Problem Noted Date Resolved Date Sacroiliitis 11/21/2020 03/06/2021 Tear of medial meniscus of right knee 09/24/2019 10/02/2019 GI bleed 01/28/2019 07/31/2019 Absolute anemia 09/05/2017 02/06/2018 Overview: Added automatically from request for surgery [id number] Morbid obesity with BMI of 40.0-44.9, adult [...] 07/31/2019 Last Assessment & Plan: She cannot bridge leverman as she used to with her hand, she thinks it is from her RA, wants a wrist splint documented as of this encounter (statuses as of 11/21/2021) [facility] History of Past illness Narrative* Problem Noted Date Resolved Date Sacroiliitis 11/21/2020 03/06/2021 Tear of medial meniscus of right knee 09/24/2019 10/02/2019 GI bleed 01/28/2019 07/31/2019 Absolute anemia 09/05/2017 02/06/2018 Overview: Added automatically from request for surgery [id number] Morbid obesity with BMI of 40.0-44.9, adult [...] 07/31/2019 Last Assessment & Plan: She cannot bridge leverman as she used to with her hand, she thinks it is from her RA, wants a wrist splint documented as of this encounter (statuses as of 11/27/2021) [facility] History of Past illness Narrative* Problem Noted Date Resolved Date Sacroiliitis 11/21/2020 03/06/2021 Tear of medial meniscus of right knee 09/24/2019 10/02/2019 GI bleed 01/28/2019 07/31/2019 Absolute anemia 09/05/2017 02/06/2018 Overview: Added automatically from request for surgery [id number] Morbid obesity with BMI of 40.0-44.9, adult [...] 07/31/2019 Last Assessment & Plan: She cannot bridge leverman as she used to with her hand, she thinks it is from her RA, wants a wrist splint documented as of this encounter (statuses as of 11/30/2021) [facility] History of Past illness Narrative* Problem Noted Date Resolved Date Sacroiliitis 11/21/2020 03/06/2021 Tear of medial meniscus of right knee 09/24/2019 10/02/2019 GI bleed 01/28/2019 07/31/2019 Absolute anemia 09/05/2017 02/06/2018 Overview: Added automatically from request for surgery [id number] Morbid obesity with BMI of 40.0-44.9, adult [...] 07/31/2019 Last Assessment & Plan: She cannot bridge leverman as she used to with her hand, she thinks it is from her RA, wants a wrist splint documented as of this encounter (statuses as of 12/22/2021) [facility] [facility] of Past illness Narrative* Problem Noted Date Resolved Date Sacroiliitis 11/21/2020 03/06/2021 Tear of medial meniscus of right knee 09/24/2019 10/02/2019 GI bleed 01/28/2019 07/31/2019 Absolute anemia 09/05/2017 02/06/2018 Overview: Added automatically from request for surgery [id number] Morbid obesity with BMI of 40.0-44.9, adult [...] 07/31/2019 Last Assessment & Plan: She cannot bridge leverman as she used to with her hand, she thinks it is from her RA, wants a wrist splint documented as of this encounter (statuses as of 12/28/2021) [facility] History of Past illness Narrative* Problem Noted Date Resolved Date Sacroiliitis 11/21/2020 03/06/2021 Tear of medial meniscus of right knee 09/24/2019 10/02/2019 GI bleed 01/28/2019 07/31/2019 Absolute anemia 09/05/2017 02/06/2018 Overview: Added automatically from request for surgery [id number] Morbid obesity with BMI of 40.0-44.9, adult [...] 07/31/2019 Last Assessment & Plan: She cannot bridge leverman as she used to with her hand, she thinks it is from her RA, wants a wrist splint documented as of this encounter (statuses as of 01/04/2022) [facility] History of Past illness Narrative* Problem Noted Date Resolved Date Sacroiliitis 11/21/2020 03/06/2021 Tear of medial meniscus of right knee 09/24/2019 10/02/2019 GI bleed 01/28/2019 07/31/2019 Absolute anemia 09/05/2017 02/06/2018 Overview: Added automatically from request for surgery [id number] Morbid obesity with BMI of 40.0-44.9, adult [...] 07/31/2019 Last Assessment & Plan: She cannot bridge leverman as she used to with her hand, she thinks it is from her RA, wants a wrist splint documented as of this encounter (statuses as of 01/10/2022) [facility] History of Past illness Narrative* Problem Noted Date Resolved Date Sacroiliitis 11/21/2020 03/06/2021 Tear of medial meniscus of right knee 09/24/2019 10/02/2019 GI bleed 01/28/2019 07/31/2019 Absolute anemia 09/05/2017 02/06/2018 Overview: Added automatically from request for surgery [id number] Morbid obesity with BMI of 40.0-44.9, adult [...] 07/31/2019 Last Assessment & Plan: She cannot bridge leverman as she used to with her hand, she thinks it is from her RA, wants a wrist splint documented as of this encounter (statuses as of 01/19/2022) [facility] History of Past illness Narrative* Problem Noted Date Resolved Date Sacroiliitis 11/21/2020 03/06/2021 Tear of medial meniscus of right knee 09/24/2019 10/02/2019 GI bleed 01/28/2019 07/31/2019 Absolute anemia 09/05/2017 02/06/2018 Overview: Added automatically from request for surgery [id number] Morbid obesity with BMI of 40.0-44.9, adult [...] 07/31/2019 Last Assessment & Plan: She cannot bridge leverman as she used to with her hand, she thinks it is from her RA, wants a wrist splint documented as of this encounter (statuses as of 01/23/2022) [facility] History of Past illness Narrative* Problem Noted Date Resolved Date Sacroiliitis 11/21/2020 03/06/2021 Tear of medial meniscus of right knee 09/24/2019 10/02/2019 GI bleed 01/28/2019 07/31/2019 Absolute anemia 09/05/2017 02/06/2018 Overview: Added automatically from request for surgery [id number] Morbid obesity with BMI of 40.0-44.9, adult [...] 07/31/2019 Last Assessment & Plan: She cannot bridge leverman as she used to with her hand, she thinks it is from her RA, wants a wrist splint documented as of this encounter (statuses as of 01/26/2022) [facility] History of Past illness Narrative* Problem Noted Date Resolved Date Sacroiliitis 11/21/2020 03/06/2021 Tear of medial meniscus of right knee 09/24/2019 10/02/2019 GI bleed 01/28/2019 07/31/2019 Absolute anemia 09/05/2017 02/06/2018 Overview: Added automatically from request for surgery [id number] Morbid obesity with BMI of 40.0-44.9, adult [...] 07/31/2019 Last Assessment & Plan: She cannot bridge leverman as she used to with her hand, she thinks it is from her RA, wants a wrist splint documented as of this encounter (statuses as of 01/29/2022) [facility] History of Past illness Narrative* Problem Noted Date Resolved Date Sacroiliitis 11/21/2020 03/06/2021 Tear of medial meniscus of right knee 09/24/2019 10/02/2019 GI bleed 01/28/2019 07/31/2019 Absolute anemia 09/05/2017 02/06/2018 Overview: Added automatically from request for surgery [id number] Morbid obesity with BMI of 40.0-44.9, adult [...] 07/31/2019 Last Assessment & Plan: She cannot bridge leverman as she used to with her hand, she thinks it is from her RA, wants a wrist splint documented as of this encounter (statuses as of 01/30/2022) [facility] History of Past illness Narrative* Problem Noted Date Resolved Date Sacroiliitis 11/21/2020 03/06/2021 Tear of medial meniscus of right knee 09/24/2019 10/02/2019 GI bleed 01/28/2019 07/31/2019 Absolute anemia 09/05/2017 02/06/2018 Overview: Added automatically from request for surgery [id number] Morbid obesity with BMI of 40.0-44.9, adult [...] 07/31/2019 Last Assessment & Plan: She cannot bridge leverman as she used to with her hand, she thinks it is from her RA, wants a wrist splint documented as of this encounter (statuses as of 02/01/2022) [facility] History of Past illness Narrative* Problem Noted Date Resolved Date Sacroiliitis 11/21/2020 03/06/2021 Tear of medial meniscus of right knee 09/24/2019 10/02/2019 GI bleed 01/28/2019 07/31/2019 Absolute anemia 09/05/2017 02/06/2018 Overview: Added automatically from request for surgery [id number] Morbid obesity with BMI of 40.0-44.9, adult [...] 07/31/2019 Last Assessment & Plan: She cannot bridge leverman as she used to with her hand, she thinks it is from her RA, wants a wrist splint documented as of this encounter (statuses as of 02/01/2022) [facility] History of Past illness Narrative* Problem Noted Date Resolved Date Sacroiliitis 11/21/2020 03/06/2021 Tear of medial meniscus of right knee 09/24/2019 10/02/2019 GI bleed 01/28/2019 07/31/2019 Absolute anemia 09/05/2017 02/06/2018 Overview: Added automatically from request for surgery [id number] Morbid obesity with BMI of 40.0-44.9, adult [...] 07/31/2019 Last Assessment & Plan: She cannot bridge leverman as she used to with her hand, she thinks it is from her RA, wants a wrist splint documented as of this encounter (statuses as of 02/01/2022) [facility] History of Past illness Narrative* Problem Noted Date Resolved Date Sacroiliitis 11/21/2020 03/06/2021 Tear of medial meniscus of right knee 09/24/2019 10/02/2019 GI bleed 01/28/2019 07/31/2019 Absolute anemia 09/05/2017 02/06/2018 Overview: Added automatically from request for surgery [id number] Morbid obesity with BMI of 40.0-44.9, adult [...] 07/31/2019 Last Assessment & Plan: She cannot bridge leverman as she used to with her hand, she thinks it is from her RA, wants a wrist splint documented as of this encounter (statuses as of 03/05/2022) [facility] History of Past illness Narrative* Problem Noted Date Resolved Date Sacroiliitis 11/21/2020 03/06/2021 Tear of medial meniscus of right knee 09/24/2019 10/02/2019 GI bleed 01/28/2019 07/31/2019 Absolute anemia 09/05/2017 02/06/2018 Overview: Added automatically from request for surgery [id number] Morbid obesity with BMI of 40.0-44.9, adult [...] 07/31/2019 Last Assessment & Plan: She cannot bridge leverman as she used to with her hand, she thinks it is from her RA, wants a wrist splint documented as of this encounter (statuses as of 03/12/2022) [facility] History of Past illness Narrative* Problem Noted Date Resolved Date Sacroiliitis 11/21/2020 03/06/2021 Tear of medial meniscus of right knee 09/24/2019 10/02/2019 GI bleed 01/28/2019 07/31/2019 Absolute anemia 09/05/2017 02/06/2018 Overview: Added automatically from request for surgery [id number] Morbid obesity with BMI of 40.0-44.9, adult [...] 07/31/2019 Last Assessment & Plan: She cannot bridge leverman as she used to with her hand, she thinks it is from her RA, wants a wrist splint documented as of this encounter (statuses as of 03/22/2022) [facility] History of Past illness Narrative* Problem Noted Date Resolved Date Sacroiliitis 11/21/2020 03/06/2021 Tear of medial meniscus of right knee 09/24/2019 10/02/2019 GI bleed 01/28/2019 07/31/2019 Absolute anemia 09/05/2017 02/06/2018 Overview: Added automatically from request for surgery [id number] Morbid obesity with BMI of 40.0-44.9, adult [...] 07/31/2019 Last Assessment & Plan: She cannot bridge leverman as she used to with her hand, she thinks it is from her RA, wants a wrist splint documented as of this encounter (statuses as of 03/27/2022) [facility] History of Past illness Narrative* Problem Noted Date Resolved Date Sacroiliitis 11/21/2020 03/06/2021 Tear of medial meniscus of right knee 09/24/2019 10/02/2019 GI bleed 01/28/2019 07/31/2019 Absolute anemia 09/05/2017 02/06/2018 Overview: Added automatically from request for surgery [id number] Morbid obesity with BMI of 40.0-44.9, adult [...] 07/31/2019 Last Assessment & Plan: She cannot bridge leverman as she used to with her hand, she thinks it is from her RA, wants a wrist splint documented as of this encounter (statuses as of 04/05/2022) [facility] History of Past illness Narrative* Problem Noted Date Resolved Date Sacroiliitis 11/21/2020 03/06/2021 Tear of medial meniscus of right knee 09/24/2019 10/02/2019 GI bleed 01/28/2019 07/31/2019 Absolute anemia 09/05/2017 02/06/2018 Overview: Added automatically from request for surgery [id number] Morbid obesity with BMI of 40.0-44.9, adult [...] 07/31/2019 Last Assessment & Plan: She cannot bridge leverman as she used to with her hand, she thinks it is from her RA, wants a wrist splint documented as of this encounter (statuses as of 04/19/2022) [facility] History of Past illness Narrative* Problem Noted Date Resolved Date Sacroiliitis 11/21/2020 03/06/2021 Tear of medial meniscus of right knee 09/24/2019 10/02/2019 GI bleed 01/28/2019 07/31/2019 Absolute anemia 09/05/2017 02/06/2018 Overview: Added automatically from request for surgery [id number] Morbid obesity with BMI of 40.0-44.9, adult [...] 07/31/2019 Last Assessment & Plan: She cannot bridge leverman as she used to with her hand, she thinks it is from her RA, wants a wrist splint documented as of this encounter (statuses as of 05/01/2022) [facility] History of Past illness Narrative* Problem Noted Date Resolved Date Sacroiliitis 11/21/2020 03/06/2021 Tear of medial meniscus of right knee 09/24/2019 10/02/2019 GI bleed 01/28/2019 07/31/2019 Absolute anemia 09/05/2017 02/06/2018 Overview: Added automatically from request for surgery [id number] Morbid obesity with BMI of 40.0-44.9, adult [...] 07/31/2019 Last Assessment & Plan: She cannot bridge leverman as she used to with her hand, she thinks it is from her RA, wants a wrist splint documented as of this encounter (statuses as of 05/03/2022) [facility] History of Past illness Narrative* Problem Noted Date Resolved Date Sacroiliitis 11/21/2020 03/06/2021 Tear of medial meniscus of right knee 09/24/2019 10/02/2019 GI bleed 01/28/2019 07/31/2019 Absolute anemia 09/05/2017 02/06/2018 Overview: Added automatically from request for surgery [id number] Morbid obesity with BMI of 40.0-44.9, adult [...] 07/31/2019 Last Assessment & Plan: She cannot bridge leverman as she used to with her hand, she thinks it is from her RA, wants a wrist splint documented as of this encounter (statuses as of 05/16/2022) [facility] History of Past illness Narrative* Problem Noted Date Resolved Date Sacroiliitis 11/21/2020 03/06/2021 Tear of medial meniscus of right knee 09/24/2019 10/02/2019 GI bleed 01/28/2019 07/31/2019 Absolute anemia 09/05/2017 02/06/2018 Overview: Added automatically from request for surgery [id number] Morbid obesity with BMI of 40.0-44.9, adult [...] 07/31/2019 Last Assessment & Plan: She cannot bridge leverman as she used to with her hand, she thinks it is from her RA, wants a wrist splint documented as of this encounter (statuses as of 05/17/2022) [facility] History of Past illness Narrative* Problem Noted Date Resolved Date Sacroiliitis 11/21/2020 03/06/2021 Tear of medial meniscus of right knee 09/24/2019 10/02/2019 GI bleed 01/28/2019 07/31/2019 Absolute anemia 09/05/2017 02/06/2018 Overview: Added automatically from request for surgery [id number] Morbid obesity with BMI of 40.0-44.9, adult [...] 07/31/2019 Last Assessment & Plan: She cannot bridge leverman as she used to with her hand, she thinks it is from her RA, wants a wrist splint documented as of this encounter (statuses as of 05/17/2022) [facility] History of Past illness Narrative* Problem Noted Date Resolved Date Sacroiliitis 11/21/2020 03/06/2021 Tear of medial meniscus of right knee 09/24/2019 10/02/2019 GI bleed 01/28/2019 07/31/2019 Absolute anemia 09/05/2017 02/06/2018 Overview: Added automatically from request for surgery [id number] Morbid obesity with BMI of 40.0-44.9, adult [...] 07/31/2019 Last Assessment & Plan: She cannot bridge leverman as she used to with her hand, she thinks it is from her RA, wants a wrist splint documented as of this encounter (statuses as of 05/29/2022) [facility] History of Past illness Narrative* Problem Noted Date Resolved Date Sacroiliitis 11/21/2020 03/06/2021 Tear of medial meniscus of right knee 09/24/2019 10/02/2019 GI bleed 01/28/2019 07/31/2019 Absolute anemia 09/05/2017 02/06/2018 Overview: Added automatically from request for surgery [id number] Morbid obesity with BMI of 40.0-44.9, adult [...] 07/31/2019 Last Assessment & Plan: She cannot bridge leverman as she used to with her hand, she thinks it is from her RA, wants a wrist splint documented as of this encounter (statuses as of 05/30/2022) [facility] History of Past illness Narrative* Problem Noted Date Resolved Date Sacroiliitis 11/21/2020 03/06/2021 Tear of medial meniscus of right knee 09/24/2019 10/02/2019 GI bleed 01/28/2019 07/31/2019 Absolute anemia 09/05/2017 02/06/2018 Overview: Added automatically from request for surgery [id number] Morbid obesity with BMI of 40.0-44.9, adult [...] 07/31/2019 Last Assessment & Plan: She cannot bridge leverman as she used to with her hand, she thinks it is from her RA, wants a wrist splint documented as of this encounter (statuses as of 06/12/2022) [facility] History of Past illness Narrative* Problem Noted Date Resolved Date Sacroiliitis 11/21/2020 03/06/2021 Tear of medial meniscus of right knee 09/24/2019 10/02/2019 GI bleed 01/28/2019 07/31/2019 Absolute anemia 09/05/2017 02/06/2018 Overview: Added automatically from request for surgery [id number] Morbid obesity with BMI of 40.0-44.9, adult [...] 07/31/2019 Last Assessment & Plan: She cannot bridge leverman as she used to with her hand, she thinks it is from her RA, wants a wrist splint documented as of this encounter (statuses as of 06/12/2022) [facility] History of Past illness Narrative* Problem Noted Date Resolved Date Sacroiliitis 11/21/2020 03/06/2021 Tear of medial meniscus of right knee 09/24/2019 10/02/2019 GI bleed 01/28/2019 07/31/2019 Absolute anemia 09/05/2017 02/06/2018 Overview: Added automatically from request for surgery [id number] Morbid obesity with BMI of 40.0-44.9, adult [...] 07/31/2019 Last Assessment & Plan: She cannot bridge leverman as she used to with her hand, she thinks it is from her RA, wants a wrist splint documented as of this encounter (statuses as of 06/15/2022) [facility] History of Past illness Narrative* Problem Noted Date Resolved Date Sacroiliitis 11/21/2020 03/06/2021 Tear of medial meniscus of right knee 09/24/2019 10/02/2019 GI bleed 01/28/2019 07/31/2019 Absolute anemia 09/05/2017 02/06/2018 Overview: Added automatically from request for surgery [id number] Morbid obesity with BMI of 40.0-44.9, adult [...] 07/31/2019 Last Assessment & Plan: She cannot bridge leverman as she used to with her hand, she thinks it is from her RA, wants a wrist splint documented as of this encounter (statuses as of 06/26/2022) [facility] History of Past illness Narrative* Problem Noted Date Resolved Date Sacroiliitis 11/21/2020 03/06/2021 Tear of medial meniscus of right knee 09/24/2019 10/02/2019 GI bleed 01/28/2019 07/31/2019 Absolute anemia 09/05/2017 02/06/2018 Overview: Added automatically from request for surgery [id number] Morbid obesity with BMI of 40.0-44.9, adult [...] 07/31/2019 Last Assessment & Plan: She cannot bridge leverman as she used to with her hand, she thinks it is from her RA, wants a wrist splint documented as of this encounter (statuses as of 06/27/2022) [facility] History of Past illness Narrative* Problem Noted Date Resolved Date Sacroiliitis 11/21/2020 03/06/2021 Tear of medial meniscus of right knee 09/24/2019 10/02/2019 GI bleed 01/28/2019 07/31/2019 Absolute anemia 09/05/2017 02/06/2018 Overview: Added automatically from request for surgery [id number] Morbid obesity with BMI of 40.0-44.9, adult [...] 07/31/2019 Last Assessment & Plan: She cannot bridge leverman as she used to with her hand, she thinks it is from her RA, wants a wrist splint documented as of this encounter (statuses as of 07/13/2022) [facility] History of Past illness Narrative* Problem Noted Date Resolved Date Sacroiliitis 11/21/2020 03/06/2021 Tear of medial meniscus of right knee 09/24/2019 10/02/2019 GI bleed 01/28/2019 07/31/2019 Absolute anemia 09/05/2017 02/06/2018 Overview: Added automatically from request for surgery [id number] Morbid obesity with BMI of 40.0-44.9, adult [...] 07/31/2019 Last Assessment & Plan: She cannot bridge leverman as she used to with her hand, she thinks it is from her RA, wants a wrist splint documented as of this encounter (statuses as of 07/17/2022) [facility] History of Past illness Narrative* Problem Noted Date Resolved Date Sacroiliitis 11/21/2020 03/06/2021 Tear of medial meniscus of right knee 09/24/2019 10/02/2019 GI bleed 01/28/2019 07/31/2019 Absolute anemia 09/05/2017 02/06/2018 Overview: Added automatically from request for surgery [id number] Morbid obesity with BMI of 40.0-44.9, adult [...] 07/31/2019 Last Assessment & Plan: She cannot bridge leverman as she used to with her hand, she thinks it is from her RA, wants a wrist splint documented as of this encounter (statuses as of 08/03/2022) [facility] History of Past illness Narrative* Problem Noted Date Resolved Date Sacroiliitis 11/21/2020 03/06/2021 Tear of medial meniscus of right knee 09/24/2019 10/02/2019 GI bleed 01/28/2019 07/31/2019 Absolute anemia 09/05/2017 02/06/2018 Overview: Added automatically from request for surgery [id number] Morbid obesity with BMI of 40.0-44.9, adult [...] 07/31/2019 Last Assessment & Plan: She cannot bridge leverman as she used to with her hand, she thinks it is from her RA, wants a wrist splint documented as of this encounter (statuses as of 08/08/2022) [facility] History of Past illness Narrative* Problem Noted Date Resolved Date Sacroiliitis 11/21/2020 03/06/2021 Tear of medial meniscus of right knee 09/24/2019 10/02/2019 GI bleed 01/28/2019 07/31/2019 Absolute anemia 09/05/2017 02/06/2018 Overview: Added automatically from request for surgery [id number] Morbid obesity with BMI of 40.0-44.9, adult [...] 07/31/2019 Last Assessment & Plan: She cannot bridge leverman as she used to with her hand, she thinks it is from her RA, wants a wrist splint documented as of this encounter (statuses as of 08/09/2022) [facility] History of Past illness Narrative* Problem Noted Date Resolved Date Sacroiliitis 11/21/2020 03/06/2021 Tear of medial meniscus of right knee 09/24/2019 10/02/2019 GI bleed 01/28/2019 07/31/2019 Absolute anemia 09/05/2017 02/06/2018 Overview: Added automatically from request for surgery [id number] Morbid obesity with BMI of 40.0-44.9, adult [...] 07/31/2019 Last Assessment & Plan: She cannot bridge leverman as she used to with her hand, she thinks it is from her RA, wants a wrist splint documented as of this encounter (statuses as of 08/14/2022) [facility] History of Past illness Narrative* Problem Noted Date Resolved Date Sacroiliitis 11/21/2020 03/06/2021 Tear of medial meniscus of right knee 09/24/2019 10/02/2019 GI bleed 01/28/2019 07/31/2019 Absolute anemia 09/05/2017 02/06/2018 Overview: Added automatically from request for surgery [id number] Morbid obesity with BMI of 40.0-44.9, adult [...] 07/31/2019 Last Assessment & Plan: She cannot bridge leverman as she used to with her hand, she thinks it is from her RA, wants a wrist splint documented as of this encounter (statuses as of 08/16/2022) [facility] History of Past illness Narrative* Problem Noted Date Resolved Date Sacroiliitis 11/21/2020 03/06/2021 Tear of medial meniscus of right knee 09/24/2019 10/02/2019 GI bleed 01/28/2019 07/31/2019 Absolute anemia 09/05/2017 02/06/2018 Overview: Added automatically from request for surgery [id number] Morbid obesity with BMI of 40.0-44.9, adult [...] 07/31/2019 Last Assessment & Plan: She cannot bridge leverman as she used to with her hand, she thinks it is from her RA, wants a wrist splint documented as of this encounter (statuses as of 09/03/2022) [facility] History of Past illness Narrative* Problem Noted Date Resolved Date Sacroiliitis 11/21/2020 03/06/2021 Tear of medial meniscus of right knee 09/24/2019 10/02/2019 GI bleed 01/28/2019 07/31/2019 Absolute anemia 09/05/2017 02/06/2018 Overview: Added automatically from request for surgery [id number] Morbid obesity with BMI of 40.0-44.9, adult [...] 07/31/2019 Last Assessment & Plan: She cannot bridge leverman as she used to with her hand, she thinks it is from her RA, wants a wrist splint documented as of this encounter (statuses as of 09/07/2022) [facility] History of Past illness Narrative* Problem Noted Date Resolved Date Sacroiliitis 11/21/2020 03/06/2021 Tear of medial meniscus of right knee 09/24/2019 10/02/2019 GI bleed 01/28/2019 07/31/2019 Absolute anemia 09/05/2017 02/06/2018 Overview: Added automatically from request for surgery [id number] Morbid obesity with BMI of 40.0-44.9, adult [...] 07/31/2019 Last Assessment & Plan: She cannot bridge leverman as she used to with her hand, she thinks it is from her RA, wants a wrist splint documented as of this encounter (statuses as of 09/21/2022) [facility] History of Past illness Narrative* Problem Noted Date Resolved Date Sacroiliitis 11/21/2020 03/06/2021 Tear of medial meniscus of right knee 09/24/2019 10/02/2019 GI bleed 01/28/2019 07/31/2019 Absolute anemia 09/05/2017 02/06/2018 Overview: Added automatically from request for surgery [id number] Morbid obesity with BMI of 40.0-44.9, adult [...] 07/31/2019 Last Assessment & Plan: She cannot bridge leverman as she used to with her hand, she thinks it is from her RA, wants a wrist splint documented as of this encounter (statuses as of 10/18/2022) [facility] History of Past illness Narrative* Problem Noted Date Resolved Date Sacroiliitis 11/21/2020 03/06/2021 Tear of medial meniscus of right knee 09/24/2019 10/02/2019 GI bleed 01/28/2019 07/31/2019 Absolute anemia 09/05/2017 02/06/2018 Overview: Added automatically from request for surgery [id number] Morbid obesity with BMI of 40.0-44.9, adult [...] 07/31/2019 Last Assessment & Plan: She cannot bridge leverman as she used to with her hand, she thinks it is from her RA, wants a wrist splint documented as of this encounter (statuses as of 10/25/2022) [facility] History of Past illness Narrative* Problem Noted Date Resolved Date Sacroiliitis 11/21/2020 03/06/2021 Tear of medial meniscus of right knee 09/24/2019 10/02/2019 GI bleed 01/28/2019 07/31/2019 Absolute anemia 09/05/2017 02/06/2018 Overview: Added automatically from request for surgery [id number] Morbid obesity with BMI of 40.0-44.9, adult [...] 07/31/2019 Last Assessment & Plan: She cannot bridge leverman as she used to with her hand, she thinks it is from her RA, wants a wrist splint documented as of this encounter (statuses as of 11/01/2022) [facility] History of Past illness Narrative* Problem Noted Date Resolved Date Sacroiliitis 11/21/2020 03/06/2021 Tear of medial meniscus of right knee 09/24/2019 10/02/2019 GI bleed 01/28/2019 07/31/2019 Absolute anemia 09/05/2017 02/06/2018 Overview: Added automatically from request for surgery [id number] Morbid obesity with BMI of 40.0-44.9, adult [...] 07/31/2019 Last Assessment & Plan: She cannot bridge leverman as she used to with her hand, she thinks it is from her RA, wants a wrist splint documented as of this encounter (statuses as of 11/02/2022) [facility] History of Past illness Narrative* Problem Noted Date Resolved Date Sacroiliitis 11/21/2020 03/06/2021 Tear of medial meniscus of right knee 09/24/2019 10/02/2019 GI bleed 01/28/2019 07/31/2019 Absolute anemia 09/05/2017 02/06/2018 Overview: Added automatically from request for surgery [id number] Morbid obesity with BMI of 40.0-44.9, adult [...] 07/31/2019 Last Assessment & Plan: She cannot bridge leverman as she used to with her hand, she thinks it is from her RA, wants a wrist splint documented as of this encounter (statuses as of 11/20/2022) [facility] History of Past illness Narrative* Problem Noted Date Resolved Date Sacroiliitis 11/21/2020 03/06/2021 Tear of medial meniscus of right knee 09/24/2019 10/02/2019 GI bleed 01/28/2019 07/31/2019 Absolute anemia 09/05/2017 02/06/2018 Overview: Added automatically from request for surgery [id number] Morbid obesity with BMI of 40.0-44.9, adult [...] 07/31/2019 Last Assessment & Plan: She cannot bridge leverman as she used to with her hand, she thinks it is from her RA, wants a wrist splint documented as of this encounter (statuses as of 11/26/2022) [facility] History of Past illness Narrative* Problem Noted Date Resolved Date Sacroiliitis 11/21/2020 03/06/2021 Tear of medial meniscus of right knee 09/24/2019 10/02/2019 GI bleed 01/28/2019 07/31/2019 Absolute anemia 09/05/2017 02/06/2018 Overview: Added automatically from request for surgery [id number] Morbid obesity with BMI of 40.0-44.9, adult [...] 07/31/2019 Last Assessment & Plan: She cannot bridge leverman as she used to with her hand, she thinks it is from her RA, wants a wrist splint documented as of this encounter (statuses as of 12/26/2022) [facility] History of Past illness Narrative* Problem Noted Date Resolved Date Sacroiliitis 11/21/2020 03/06/2021 Tear of medial meniscus of right knee 09/24/2019 10/02/2019 GI bleed 01/28/2019 07/31/2019 Absolute anemia 09/05/2017 02/06/2018 Overview: Added automatically from request for surgery [id number] Morbid obesity with BMI of 40.0-44.9, adult [...] 07/31/2019 Last Assessment & Plan: She cannot bridge leverman as she used to with her hand, she thinks it is from her RA, wants a wrist splint documented as of this encounter (statuses as of 12/26/2022) [facility] History of Past illness Narrative* Problem Noted Date Resolved Date Sacroiliitis 11/21/2020 03/06/2021 Tear of medial meniscus of right knee 09/24/2019 10/02/2019 GI bleed 01/28/2019 07/31/2019 Absolute anemia 09/05/2017 02/06/2018 Overview: Added automatically from request for surgery [id number] Morbid obesity with BMI of 40.0-44.9, adult [...] 07/31/2019 Last Assessment & Plan: She cannot bridge leverman as she used to with her hand, she thinks it is from her RA, wants a wrist splint documented as of this encounter (statuses as of 01/02/2023) [facility] History of Past illness Narrative* Problem Noted Date Resolved Date Sacroiliitis 11/21/2020 03/06/2021 Tear of medial meniscus of right knee 09/24/2019 10/02/2019 GI bleed 01/28/2019 07/31/2019 Absolute anemia 09/05/2017 02/06/2018 Overview: Added automatically from request for surgery [id number] Morbid obesity with BMI of 40.0-44.9, adult [...] 07/31/2019 Last Assessment & Plan: She cannot bridge leverman as she used to with her hand, she thinks it is from her RA, wants a wrist splint documented as of this encounter (statuses as of 02/01/2023) [facility] History of Past illness Narrative* Problem Noted Date Diagnosed Date Resolved Date Sacroiliitis 11/21/2020 03/06/2021 Tear of medial meniscus of right knee 09/24/2019 10/02/2019 GI bleed 01/28/2019 07/31/2019 Absolute anemia 09/05/2017 02/06/2018 Overview: Added automatically from request for surgery [id number] Morbid obesity with BMI of 40.0-44.9, adult [...] 07/31/2019 Last Assessment & Plan: She cannot bridge leverman as she used to with her hand, she thinks it is from her RA, wants a wrist splint documented as of this encounter (statuses as of 04/11/2023) [facility] History of Past illness Narrative* Problem Noted Date Diagnosed Date Resolved Date Sacroiliitis 11/21/2020 03/06/2021 Tear of medial meniscus of right knee 09/24/2019 10/02/2019 GI bleed 01/28/2019 07/31/2019 Absolute anemia 09/05/2017 02/06/2018 Overview: Added automatically from request for surgery [id number] Morbid obesity with BMI of 40.0-44.9, adult [...] 07/31/2019 Last Assessment & Plan: She cannot bridge leverman as she used to with her hand, she thinks it is from her RA, wants a wrist splint documented as of this encounter (statuses as of 04/15/2023) [facility] History of Past illness Narrative* Problem Noted Date Diagnosed Date Resolved Date Sacroiliitis 11/21/2020 03/06/2021 Tear of medial meniscus of right knee 09/24/2019 10/02/2019 GI bleed 01/28/2019 07/31/2019 Absolute anemia 09/05/2017 02/06/2018 Overview: Added automatically from request for surgery [id number] Morbid obesity with BMI of 40.0-44.9, adult [...] 07/31/2019 Last Assessment & Plan: She cannot bridge leverman as she used to with her hand, she thinks it is from her RA, wants a wrist splint documented as of this encounter (statuses as of 04/26/2023) [facility] History of Past illness Narrative* Problem Noted Date Diagnosed Date Resolved Date Sacroiliitis 11/21/2020 03/06/2021 Tear of medial meniscus of right knee 09/24/2019 10/02/2019 GI bleed 01/28/2019 07/31/2019 Absolute anemia 09/05/2017 02/06/2018 Overview: Added automatically from request for surgery [id number] Morbid obesity with BMI of 40.0-44.9, adult [...] 07/31/2019 Last Assessment & Plan: She cannot bridge leverman as she used to with her hand, she thinks it is from her RA, wants a wrist splint documented as of this encounter (statuses as of 04/26/2023) [facility] History of Past illness Narrative* Problem Noted Date Diagnosed Date Resolved Date Sacroiliitis 11/21/2020 03/06/2021 Tear of medial meniscus of right knee 09/24/2019 10/02/2019 GI bleed 01/28/2019 07/31/2019 Absolute anemia 09/05/2017 02/06/2018 Overview: Added automatically from request for surgery [id number] Morbid obesity with BMI of 40.0-44.9, adult [...] 07/31/2019 Last Assessment & Plan: She cannot bridge leverman as she used to with her hand, she thinks it is from her RA, wants a wrist splint documented as of this encounter (statuses as of 04/30/2023) [facility] History of Past illness Narrative* Problem Noted Date Diagnosed Date Resolved Date Sacroiliitis 11/21/2020 03/06/2021 Tear of medial meniscus of right knee 09/24/2019 10/02/2019 GI bleed 01/28/2019 07/31/2019 Absolute anemia 09/05/2017 02/06/2018 Overview: Added automatically from request for surgery [id number] Morbid obesity with BMI of 40.0-44.9, adult [...] 07/31/2019 Last Assessment & Plan: She cannot bridge leverman as she used to with her hand, she thinks it is from her RA, wants a wrist splint documented as of this encounter (statuses as of 05/21/2023) [facility] History of Past illness Narrative* Problem Noted Date Diagnosed Date Resolved Date Sacroiliitis 11/21/2020 03/06/2021 Tear of medial meniscus of right knee 09/24/2019 10/02/2019 GI bleed 01/28/2019 07/31/2019 Absolute anemia 09/05/2017 02/06/2018 Overview: Added automatically from request for surgery [id number] Morbid obesity with BMI of 40.0-44.9, adult [...] 07/31/2019 Last Assessment & Plan: She cannot bridge leverman as she used to with her hand, she thinks it is from her RA, wants a wrist splint documented as of this encounter (statuses as of 05/28/2023) [facility] History of Past illness Narrative* Problem Noted Date Diagnosed Date Resolved Date Sacroiliitis 11/21/2020 03/06/2021 Tear of medial meniscus of right knee 09/24/2019 10/02/2019 GI bleed 01/28/2019 07/31/2019 Absolute anemia 09/05/2017 02/06/2018 Overview: Added automatically from request for surgery [id number] Morbid obesity with BMI of 40.0-44.9, adult [...] 07/31/2019 Last Assessment & Plan: She cannot bridge leverman as she used to with her hand, she thinks it is from her RA, wants a wrist splint documented as of this encounter (statuses as of 06/03/2023) [facility] History of Past illness Narrative* Problem Noted Date Diagnosed Date Resolved Date Sacroiliitis 11/21/2020 03/06/2021 Tear of medial meniscus of right knee 09/24/2019 10/02/2019 GI bleed 01/28/2019 07/31/2019 Absolute anemia 09/05/2017 02/06/2018 Overview: Added automatically from request for surgery [id number] Morbid obesity with BMI of 40.0-44.9, adult [...] 07/31/2019 Last Assessment & Plan: She cannot bridge leverman as she used to with her hand, she thinks it is from her RA, wants a wrist splint documented as of this encounter (statuses as of 06/03/2023) [facility] History of Past illness Narrative* Problem Noted Date Diagnosed Date Resolved Date Sacroiliitis 11/21/2020 03/06/2021 Tear of medial meniscus of right knee 09/24/2019 10/02/2019 GI bleed 01/28/2019 07/31/2019 Absolute anemia 09/05/2017 02/06/2018 Overview: Added automatically from request for surgery [id number] Morbid obesity with BMI of 40.0-44.9, adult [...] 07/31/2019 Last Assessment & Plan: She cannot bridge leverman as she used to with her hand, she thinks it is from her RA, wants a wrist splint documented as of this encounter (statuses as of 06/19/2023) [facility] History of Past illness Narrative* Problem Noted Date Diagnosed Date Resolved Date Sacroiliitis 11/21/2020 03/06/2021 Tear of medial meniscus of right knee 09/24/2019 10/02/2019 GI bleed 01/28/2019 07/31/2019 Absolute anemia 09/05/2017 02/06/2018 Overview: Added automatically from request for surgery [id number] Morbid obesity with BMI of 40.0-44.9, adult [...] 07/31/2019 Last Assessment & Plan: She cannot bridge leverman as she used to with her hand, she thinks it is from her RA, wants a wrist splint documented as of this encounter (statuses as of 07/04/2023) [facility] History of Past illness Narrative* Problem Noted Date Diagnosed Date Resolved Date Sacroiliitis 11/21/2020 03/06/2021 Tear of medial meniscus of right knee 09/24/2019 10/02/2019 GI bleed 01/28/2019 07/31/2019 Absolute anemia 09/05/2017 02/06/2018 Overview: Added automatically from request for surgery [id number] Morbid obesity with BMI of 40.0-44.9, adult [...] 07/31/2019 Last Assessment & Plan: She cannot bridge leverman as she used to with her hand, she thinks it is from her RA, wants a wrist splint documented as of this encounter (statuses as of 08/30/2023) [facility] History of Past illness Narrative* Problem Noted Date Diagnosed Date Resolved Date Sacroiliitis 11/21/2020 03/06/2021 Tear of medial meniscus of right knee 09/24/2019 10/02/2019 GI bleed 01/28/2019 07/31/2019 Absolute anemia 09/05/2017 02/06/2018 Overview: Added automatically from request for surgery [id number] Morbid obesity with BMI of 40.0-44.9, adult [...] 07/31/2019 Last Assessment & Plan: She cannot bridge leverman as she used to with her hand, she thinks it is from her RA, wants a wrist splint documented as of this encounter (statuses as of 09/16/2023) [facility] History of Past illness Narrative* Problem Noted Date Diagnosed Date Resolved Date Sacroiliitis 11/21/2020 03/06/2021 Tear of medial meniscus of right knee 09/24/2019 10/02/2019 GI bleed 01/28/2019 07/31/2019 Absolute anemia 09/05/2017 02/06/2018 Overview: Added automatically from request for surgery [id number] Morbid obesity with BMI of 40.0-44.9, adult [...] 07/31/2019 Last Assessment & Plan: She cannot bridge leverman as she used to with her hand, she thinks it is from her RA, wants a wrist splint documented as of this encounter (statuses as of 09/19/2023) [facility] History of Past illness Narrative* Problem Noted Date Diagnosed Date Resolved Date Sacroiliitis 11/21/2020 03/06/2021 Tear of medial meniscus of right knee 09/24/2019 10/02/2019 GI bleed 01/28/2019 07/31/2019 Absolute anemia 09/05/2017 02/06/2018 Overview: Added automatically from request for surgery [id number] Morbid obesity with BMI of 40.0-44.9, adult [...] 07/31/2019 Last Assessment & Plan: She cannot bridge leverman as she used to with her hand, she thinks it is from her RA, wants a wrist splint documented as of this encounter (statuses as of 09/26/2023) [facility] History of Past illness Narrative* Problem Noted Date Diagnosed Date Resolved Date Sacroiliitis 11/21/2020 03/06/2021 Tear of medial meniscus of right knee 09/24/2019 10/02/2019 GI bleed 01/28/2019 07/31/2019 Absolute anemia 09/05/2017 02/06/2018 Overview: Added automatically from request for surgery [id number] Morbid obesity with BMI of 40.0-44.9, adult [...] 07/31/2019 Last Assessment & Plan: She cannot bridge leverman as she used to with her hand, she thinks it is from her RA, wants a wrist splint documented as of this encounter (statuses as of 10/15/2023) [facility] History of Past illness Narrative* Problem Noted Date Diagnosed Date Resolved Date Sacroiliitis 11/21/2020 03/06/2021 Tear of medial meniscus of right knee 09/24/2019 10/02/2019 GI bleed 01/28/2019 07/31/2019 Absolute anemia 09/05/2017 02/06/2018 Overview: Added automatically from request for surgery [id number] Morbid obesity with BMI of 40.0-44.9, adult [...] 07/31/2019 Last Assessment & Plan: She cannot bridge leverman as she used to with her hand, she thinks it is from her RA, wants a wrist splint documented as of this encounter (statuses as of 10/18/2023) [facility] History of Past illness Narrative* Problem Noted Date Diagnosed Date Resolved Date Sacroiliitis 11/21/2020 03/06/2021 Tear of medial meniscus of right knee 09/24/2019 10/02/2019 GI bleed 01/28/2019 07/31/2019 Absolute anemia 09/05/2017 02/06/2018 Overview: Added automatically from request for surgery [id number] Morbid obesity with BMI of 40.0-44.9, adult [...] 07/31/2019 Last Assessment & Plan: She cannot bridge leverman as she used to with her hand, she thinks it is from her RA, wants a wrist splint documented as of this encounter (statuses as of 11/12/2023) [facility] Quang Hagen [facility] Note Date/Time March 02, 2025 10: 45am [facility] Medical Records Department [address] [facility] [place] [address] Anesthesia Postop Eval I 03/02/251044 MR#: [id number] Acct: [id number] Name: MARIMAR WANG Rep #:[id number] : [id number] 64 From: Quang NATHAN PCP: STEFANO ArriolaC Status:REG S DC Y Race: C Location: [place] [address] Anesthesia: Postop Eval I Current Vital Signs [...] CRNA Cosigner Signature: Date CC: ~ Signed [facility] Work Phone: Evaluation note* Diagnosis Rheumatoid arthritis involving multiple sites, unspecified whether rheumatoid factor present (HCC) Other osteoporosis with current pathological fracture with malunion, subsequent [facility] Anxiety and depression Dysthymic disorder [facility] Other osteoporosis with current [...] or radiculitis, unspecified [facility] Diagnosis SOB (shortness of breath) Shortness of breath [facility] Diagnosis Class 1 obesity with body mass index (BMI) of 34.0 to 34.9 in adult Hyperlipidemia with target LDL less than 130 Other and unspecified hyperlipidemia [facility] Encounter for screening mammogram for breast cancer [facility] Diagnosis Vitamin D deficiency Unspecified vitamin D deficiency Rheumatoid arthritis involving multiple sites with positive rheumatoid factor (HCC) [facility] Diagnosis Lumbar spondylosis- Primary Lumbosacral spondylosis without myelopathy Chronic bilateral low back pain without sciatica Myofascial pain Mylagia and myositis, unspecified Fibromyalgia Mylagia and myositis, unspecified Lumbar spondylosis Lumbosacral spondylosis without myelopathy [facility] Diagnosis Lumbar spondylosis- Primary Lumbosacral spondylosis without myelopathy Lumbar spondylosis Lumbosacral spondylosis without myelopathy [facility] Other osteoporosis with current pathological fracture with malunion, subsequent encounter- Primary Rheumatoid arthritis involving multiple sites, unspecified whether rheumatoid factor present (HCC) [facility] Diagnosis High risk medication use Encounter for long-term (current) use of other medications Rheumatoid arthritis involving multiple sites with positive rheumatoid factor (HCC) Localized osteoporosis without current pathological fracture [facility] Other osteoporosis with current pathological fracture with malunion, subsequent encounter- Primary Rheumatoid arthritis involving multiple sites, unspecified whether rheumatoid factor present (HCC) [facility] Diagnosis Radiculopathy, lumbar region Thoracic or lumbosacral neuritis or radiculitis, unspecified [facility] Diagnosis Other osteoporosis with current pathological fracture with malunion, subsequent encounter- Primary Rheumatoid arthritis involving multiple sites, unspecified whether rheumatoid factor present (HCC) [facility] Diagnosis Exposure to 2019 novel coronavirus- Primary [facility] Diagnosis COVID- Primary [facility] Diagnosis Radiculopathy, lumbar region Thoracic or lumbosacral neuritis or radiculitis, unspecified [facility] Diagnosis High risk medication use Encounter for long-term (current) use of other medications Rheumatoid arthritis involving multiple sites with positive rheumatoid factor (HCC) Localized osteoporosis without current pathological fracture [facility] Diagnosis Localized osteoporosis without current pathological [...] vitamin D deficiency [facility] Diagnosis Pain in left hip Pain in joint, pelvic region and thigh Fall, initial encounter [facility] Diagnosis Other osteoporosis with current pathological fracture with malunion, subsequent encounter- Primary Rheumatoid arthritis involving multiple sites, unspecified whether rheumatoid factor present (HCC) [facility] Diagnosis Chronic bilateral low back pain without sciatica- Primary Lumbar spondylosis Lumbosacral spondylosis without myelopathy Myofascial pain Mylagia and myositis, unspecified Fibromyalgia Mylagia and myositis, unspecified Sacroiliitis (HCC) Sacroiliitis, not elsewhere classified [facility] Diagnosis Other osteoporosis with current pathological fracture with malunion, subsequent encounter- Primary Rheumatoid arthritis involving multiple sites, unspecified whether rheumatoid factor present (HCC) [facility] Diagnosis Onset Date Resolution Status Acute bronchitis acute Contact with or suspected ex posure to other viral communicable disease acute Osteoarthritis of right knee acute Other instability, right knee acute Right knee pain acute Acute pharyngitis, unspecified acute URI (upper respiratory infection) acute [facility] Work Phone: Evaluation note* Diagnosis High risk medication use Encounter for long-term (current) use of other medications Rheumatoid arthritis involving multiple sites with positive rheumatoid factor ([facility]) Localized osteoporosis without current pathological fracture [facility] Diagnosis Onset Date Resolution Status Acute bronchitis acute Contact with or suspected ex posure to other viral communicable disease acute Osteoarthritis of right knee acute Other instability, right knee acute Right knee pain acute Acute pharyngitis, unspecified acute URI (upper respiratory infection) acute Diarrhea chronic Nausea Access [facility] Work Phone: Evaluation note* Diagnosis Pain in joint, multiple sites- Primary Osteoporosis, unspecified osteoporosis type, unspecified pathological fracture presence [facility] Rheumatoid arthritis involving multiple sites, unspecified whether rheumatoid factor present ([facility])- Primary Vitamin D deficiency Unspecified vitamin D deficiency Other osteoporosis with current pathological fracture with malunion, subsequent encounter [facility] Diagnosis Anxiety and depression Dysthymic disorder [facility] Diagnosis Onset Date Resolution Status Osteoarthritis of right knee acute Other instability, right knee acute Right knee pain acute Acute pharyngitis, unspecified acute URI (upper respiratory infection) acute Diarrhea chronic Nausea chronic Internal derangement of right knee acute Osteoarthritis of right knee acute Pain in right pelaez acute Diarrhea chronic Nausea chronic [facility] Work Phone: Evaluation note* Diagnosis Onset [...] acute Right knee meniscal tear acu te [facility] Work Phone: Evaluation note* Diagnosis High risk medication use Encounter for long-term (current) use of other medications Rheumatoid arthritis involving multiple sites with positive rheumatoid factor (HCC) Localized osteoporosis without current pathological fracture [facility] High risk medication use Encounter for long-term (current) use of other medications Rheumatoid arthritis involving multiple sites with positive rheumatoid factor (HCC) Localized osteoporosis without current pathological fracture [facility] Diagnosis Onset Date Resolution Status Diarrhea chronic Nausea chronic Internal derangement of right knee acute Osteoarthritis of right knee acute Pain in right pelaez acute Diarrhea chronic Nausea chronic Internal derangement of right knee acute Osteoarthritis of right knee acute Right knee meniscal tear acu te Fibromyalgia acute Rheumatoid arthritis acute Right knee DJD acute [facility] Work Phone: Evaluation note* Diagnosis Onset Date Resolution Status Internal derangement of right knee acute Osteoarthritis of right knee acute Pain in right pelaez acute Diarrhea chronic Nausea chronic Internal derangement of right knee acute Osteoarthritis of right knee acute Right knee meniscal tear acu te Fibromyalgia acute Rheumatoid arthritis acute Right knee DJD acute S/P total knee arthroplasty acute [facility] Work Phone: Evaluation note* Diagnosis High risk medication use Encounter for long-term (current) use of other medications Rheumatoid arthritis involving multiple sites with positive rheumatoid factor (HCC) Localized osteoporosis without current pathological fracture [facility] Diagnosis Rheumatoid arthritis involving multiple sites, unspecified whether rheumatoid factor present (HCC)- Primary Vitamin D deficiency Unspecified vitamin D deficiency Localized osteoporosis without current pathological fracture [facility] Diagnosis Osteoporosis, unspecified- Primary [facility] Diagnosis Vitamin D deficiency Unspecified vitamin D deficiency Rheumatoid arthritis involving multiple sites with positive rheumatoid factor (HCC) [facility] Diagnosis Rheumatoid arthritis involving multiple sites with positive rheumatoid factor (HCC)- Primary High risk medication use Encounter for long-term (current) use of other medications Localized osteoporosis without current pathological fracture Vitamin D deficiency Unspecified vitamin D deficiency [facility] Diagnosis Rheumatoid arthritis involving multiple sites, unspecified whether rheumatoid factor present (HCC) [facility] Right knee pain, unspecified chronicity [facility] Diagnosis Localized osteoporosis without current pathological fracture [facility] Diagnosis Rheumatoid arthritis involving multiple sites, unspecified whether rheumatoid factor present (HCC) [facility] Diagnosis Onset Date Resolution Status Orthopedic aftercare acute Diarrhea [facility] Work Phone: Evaluation note* Diagnosis Rheumatoid arthritis involving multiple sites, unspecified whether rheumatoid factor present (HCC) [facility] Diagnosis Onset Date Resolution Status Diarrhea chronic [facility] Work Phone: Evaluation note* Diagnosis High risk medication use Encounter for long-term (current) use of other medications Rheumatoid arthritis involving multiple sites with positive rheumatoid factor (HCC) Localized osteoporosis without current pathological fracture [facility] Diagnosis Onset Date Resolution Status Diarrhea chronic Right knee pain acute [facility] Work Phone: Evaluation note* Diagnosis Rheumatoid arthritis involving multiple sites, unspecified whether rheumatoid factor present (HCC) Osteoporosis, unspecified Vitamin D deficiency Unspecified vitamin D deficiency [facility] Diagnosis Rheumatoid arthritis involving multiple sites with positive rheumatoid factor (HCC)- Primary High risk medication use Encounter for long-term (current) use of other medications Localized osteoporosis without current pathological fracture Vitamin D deficiency Unspecified vitamin D deficiency [facility] Diagnosis Rheumatoid arthritis involving multiple sites with positive rheumatoid factor (HCC)- Primary [facility] Diagnosis High risk medication use Encounter for long-term (current) use of other medications Rheumatoid arthritis involving multiple sites with positive rheumatoid factor (HCC) Localized osteoporosis without current pathological fracture [facility] Diagnosis Rheumatoid arthritis involving multiple sites with positive rheumatoid factor (HCC)- Primary [facility] Diagnosis Rheumatoid arthritis involving multiple sites with positive rheumatoid factor (HCC)- Primary [facility] Diagnosis Establishing care with new [...] factor (HCC)- Primary [facility] Diagnosis Establishing care with new [...] Post-COVID chronic fatigue [facility] Diagnosis Establishing care with new [...] nonspecific skin eruption [facility] in [facility] Diagnosis Establishing care with new [...] factor (HCC)- Primary [facility] Diagnosis Establishing care with new [...] anemia type- Primary [facility] Diagnosis Establishing care with new [...] anemia type- Primary [facility] Diagnosis Establishing care with new [...] current pathological fracture [facility] Diagnosis Establishing care with new [...] specified intestinal malabsorption [facility] in [facility] Diagnosis Establishing care with new [...] specified intestinal malabsorption [facility] in [facility] Diagnosis Establishing care with new [...] specified intestinal malabsorption [facility] in [facility] Diagnosis Establishing care with new [...] pathological fracture presence documented in [facility] Diagnosis Establishing care with new [...] or rectal pain [facility] Diagnosis Establishing care with new doctor, [...] current pathological fracture [facility] Diagnosis Establishing care with new [...] blood loss (chronic) documented [facility] Diagnosis Establishing care with new [...] anus, unspecified site [facility] Diagnosis Establishing care with new [...] vitamin D deficiency [facility] Diagnosis Establishing care with new [...] anus, unspecified site [facility] Diagnosis Establishing care with new [...] anus, unspecified site [facility] Diagnosis Establishing care with new [...] anus, unspecified site [facility] Diagnosis Establishing care with new [...] Pain Generalized pain [facility] Diagnosis Establishing care with new doctor, [...] Primary Counseling NOS documented in this encounter [facility]* Diagnosis Establishing care with new doctor, [...] deficiency anemia type documented [facility]* Diagnosis Establishing care with new doctor, [...] for breast cancer documented [facility] Diagnosis Establishing care with new [...] for breast cancer documented [facility] Diagnosis Establishing care with new [...] recurrent major depressive disorder (HCC) Anal cancer ([facility])- Primary Malignant neoplasm of anus, unspecified site [facility] Diagnosis Establishing care with new [...] anus, unspecified site documented [facility] Diagnosis Establishing care with new [...] anus, unspecified site documented [facility] Diagnosis Establishing care with new [...] recurrent major depressive disorder (HCC) Anal cancer ([facility])- Primary Malignant neoplasm of anus, unspecified site documented [facility] this encounter [facility] Diagnosis Establishing care with new [...] anus, unspecified site documented [facility] Diagnosis Establishing care with new [...] anus, unspecified site documented [facility] Diagnosis Establishing care with new [...] anus, unspecified site documented [facility] Diagnosis Establishing care with new [...] and mucositis, unspecified [facility] Diagnosis Establishing care with new [...] anus, unspecified site documented [facility] Diagnosis Establishing care with new [...] recurrent major depressive disorder (HCC) Anal cancer ([facility])- Primary Malignant neoplasm of anus, unspecified site documented [facility] Diagnosis Establishing care with new [...] recurrent major depressive disorder (HCC) Anal cancer ([facility])- Primary Malignant neoplasm of anus, unspecified site documented [facility] Diagnosis Establishing care with new [...] swelling- Primary Swelling of limb Anal cancer ([facility]) Malignant neoplasm of anus, unspecified site PICC (peripherally inserted central catheter) in place Fitting and adjustment of vascular catheter documented [facility] Diagnosis Establishing care with new [...] anus, unspecified site documented [facility] Diagnosis Establishing care with new [...] recurrent major depressive disorder (HCC) Anal cancer ([facility])- Primary Malignant neoplasm of anus, unspecified site documented [facility] Diagnosis Establishing care with new [...] anus, unspecified site documented [facility] Diagnosis Establishing care with new [...] anus, unspecified site documented [facility] Diagnosis Establishing care with new doctor, [...] anus, unspecified site documented [facility] Diagnosis Establishing care with new [...] disorders of bladder documented in [facility] Diagnosis Establishing care with new [...] anus, unspecified site documented [facility]* Diagnosis Establishing care with new doctor, [...] anus, unspecified site documented [facility] Diagnosis Establishing care with new [...] anus, unspecified site documented [facility]* Diagnosis Establishing care with new doctor, [...] of recurrent major depressive disorder Anal cancer ([facility])- Primary Malignant neoplasm of anus, unspecified site documented [facility] Diagnosis Establishing care with new [...] anus, unspecified site documented [facility] Diagnosis Establishing care with new [...] Nausea with vomiting documented [facility] Diagnosis Establishing care with new [...] of recurrent major depressive disorder Anal cancer ([facility])- Primary Malignant neoplasm of anus, unspecified site documented [facility] Diagnosis Establishing care with new [...] anus, unspecified site documented [facility] Diagnosis Establishing care with new [...] anus, unspecified site documented [facility] Diagnosis Establishing care with new [...] current pathological fracture documented [facility] Diagnosis Establishing care with new [...] anus, unspecified site documented in [facility] encounter [facility]* Diagnosis Establishing care with new doctor, [...] anus, unspecified site documented in this encounter [facility]* Diagnosis Establishing care with new doctor, [...] current pathological fracture documented [facility] Diagnosis Establishing care with new [...] current pathological fracture [facility]* Diagnosis Establishing care with new [...] current pathological fracture [facility] Diagnosis Onset Date Resolution Status Admit Date Crohn disease acute January 14, 2025 8:19am Irritable bowel syndrome wit h diarrhea acute January 14, 2025 8:19am [employer] Work Phone: Evaluation note* Diagnosis Establishing [...] disease without complication, unspecified gastrointestinal tract location ([facility])- Primary Irritable bowel syndrome with diarrhea Irritable bowel syndrome documented in [facility] Diagnosis Establishing care with new [...] anus, unspecified site documented [facility] Diagnosis Establishing care with new [...] anus, unspecified site documented [facility] Diagnosis Establishing care with new [...] involving multiple sites with positive rheumatoid factor ([facility]) Vitamin D deficiency Unspecified vitamin D deficiency documented [facility] Diagnosis Establishing care with new [...] involving multiple sites with positive rheumatoid factor ([facility]) documented [facility] Diagnosis Establishing care with new [...] involving multiple sites with positive rheumatoid factor ([facility]) documented in this [facility] Diagnosis Establishing care with new [...] blood loss (chronic) documented in [facility] Diagnosis Establishing care with new [...] blood loss (chronic) documented in this encounter [facility] Author Andrez Pitts [facility] November 06, 2022 2:47pm Note Date/Time November 06, 2022 2:4 7pm [facility] Medical Records Department [address] [place] [address] History & Physical Exam 11/06/22 1447 MR#: [id number] Acct: [id number] Name: MARIMAR WANG Rep #:[id number] 9 : 1960 62 From: Andrez Pitts DO PCP: [facility] Arriola Status:REG S DC Location: [place] [address] History and Physical Date of Admission: 11/06/22 ?62 F who presents to the office today to transfer care from another GI practice. She has chronic nausea, chronic diarrhea. In 2018 she had fundoplication for very large hiatal hernia that was in her chest and was causing dyspnea, surgery was done at [facility]. Her surgeon sent her to [facility] for chronic nausea which began [...] HIDA scan, US, gastric emptying study at [facility], we'll request records 08/2017 EGD normal [...] Mood: euthymic mood Quality Reporting Tobacco Screening ([facility] 138) Smoking Status: Former smoker Assessment [...] Pitts DO> Cosigner Signature (if applicable): CC: GEOLOGY ASSOCIATE-C Julio Arriaga; Andrez Pitts DO~ Signed [facility] Work Phone: History and physical note Author Kenya Garcia [facility] Note Date/Time March 02, 2025 10: 14am [facility] Medical Records Department [address] [place] [address] History & Physical Exam 03/02/25 1008 MR#: [id number] Acct: [id number] Name: MARIMAR WANG Rep #:[id number] 2 : 1960 64 From: Kenya Garcia MD PCP: [facility] Status:REG S DC Location: [place] [address] HPI - General General Date of Admission: [...] is to biopsy for any residual disease [facility] Medical History Cancer Walker as [...] MENTAL HEALTH 0 12/13/15 09/01/24 History peg [id number]-foxfxbal 1 1 drp OP 4X/DAY DRY EY [...] Q12H 10/24 Unknown History a dose pack ([employer] DVT-PE Treat 30D Start) cholecalciferol (vitamin D3) [...] Garcia MD> Cosigner Signature (if applicable): CC: GEOLOGY ASSOCIATERowan Arriaga; Dr. Kenya Garcia MD~ Signed [facility] Work Phone: Hospital course Narrative No data available for this section [facility] Discharge instructions No data available for this section [facility] Hospital Discharge instructions Additional Instructions CT with no PE. Cardiac workup negative. CT abdomen pelvis no infectious findings. Urine retention with Ash catheter. Likely from your cancer with radiation therapy. Follow-up with urology. Keep your follow-up with your doctors.[facility] Work Phone: Hospital Discharge instructions Additional Instructions Your head CT showed no sign of skull fracture or brain bleed. Your hip x-rays show degenerative changes without fracture or damage to your previous hardware. You may ice the areas that are painful to help reduce pain and speed healing as well as take the prescribed Percocet. [id number]-[id number]-[id number] medication such as lidocaine patches or Salonpas may help as well. Return to the ER should you have any [facility] Work Phone: Hospital Discharge instructions Additional Instructions I am not sure what is causing her chronic left sacral and buttock pain. Your CT of the pelvis is normal other than osteoporosis. I prescribed [place] for pain. Take a stool softener or MiraLAX while on this. Follow-up with your primary care doctor.[facility] Work Phone: Hospital Discharge instructionsAdditional Instructions 1. Stop taking the tramadol while you are on Percocet. 2.[facility] Work Phone: Progress note No data available for this section [facility] Reason for referral (narrative)* Diagnostic Procedure Only (Routine) - Pending Review Specialty Diagnoses / Procedures Referred By Jordy t Referred To Contact [facility] Diagnoses Encounter for screening mammogram for breast cancer Procedures MARIA TERESA SCREENING W CAMERON SCREENING DIGITAL BREAST TOMOSYNTHESIS BI SCREENING MAMMOGRAPHY BI 2-VIEW BREAST INC Selene Valencia MD [address] [place] [address] [facility] [address] [facility] [place] [address] Referral ID Status Reason Start Date Expiration Date Visits Requested Visits Authorized [id number] Pending Review Auto-Generat ed Referral 01/24/2022 02/23/2023 1 1 [facility] for referral (narrative)* Diagnostic Procedure Only (Routine) - Closed Specialty Diagnoses / Procedures Referred By Contac t Referred To Contact XR IMAGING Diagnoses Pain in left hip Fall, initial encounter Procedures XR HIP GENERAL 3V PELV/AP/LAT LEFT RADEX HIP UNILATERAL WITH PELVIS 2-3 VIEWS Sarah Pearson PA-C [address] [facility] [address] [place] [address] Xr Imaging Referral ID Status Reason Start Date Expiration Date V isits Requested Visits Authorized [id number] Closed Auto-Generate d Referral 06/26/2022 07/26/2023 1 1 [facility] for referral (narrative)* Diagnostic Procedure Only (Routine) - Closed Specialty Diagnoses / Procedures Referred By Contac t Referred To Contact XR IMAGING Diagnoses Pain in left hip Fall, initial encounter Procedures XR HIP GENERAL 3V PELV/AP/LAT LEFT RADEX HIP UNILATERAL WITH PELVIS 2-3 VIEWS Sarah Pearson PA-C [address] [address] Xr Imaging Referral ID Status Reason Start Date Expiration Date V isits Requested Visits Authorized [id number] Closed Auto-Generate d Referral 06/26/2022 07/26/2023 1 1 [facility] for referral (narrative)* Diagnostic Procedure Only (Routine) - New Request Specialty Diagnoses / Procedures Referred By Contac t Referred To Contact XR IMAGING Diagnoses Osteoporosis, unspecified osteoporosis type, unspecified pathological fracture presence Procedures DXA-AXIAL SKELETON DXA BONE DENSITY STUDY 1/> SITES AXIAL SKEL Sarah Pearson PA-C [address] [place] [address] [place] [address] Referral ID Status Reason Start Date Expiration Date Visits Requested Visits Authorized [id number] New Request Auto-Generat ed Referral 06/14/2025 1 1 [facility] for referral (narrative)No reason for referral [facility] N[facility]* Diagnostic Procedure Only (Routine) - Closed Specialty Diagnoses / Procedures Referred By Contac t Referred To Contact XR IMAGING Diagnoses Pain in left hip Fall, initial encounter Procedures XR HIP GENERAL 3V PELV/AP/LAT LEFT RADEX HIP UNILATERAL WITH PELVIS 2-3 VIEWS Sarah Pearson PA-C [address] [address] Xr Imaging Referral ID Status Reason Start Date Expiration Date V isits Requested Visits Authorized [id number] Closed Auto-Generate d Referral 06/26/2022 07/26/2023 1 1 [facility] for visit Narrative* Diagnostic Procedure Only (Routine) - Closed Specialty Diagnoses / Procedures Referred By Contac t Referred To Contact XR IMAGING Diagnoses Osteoporosis, unspecified osteoporosis type, unspecified pathological fracture presence Procedures DXA-AXIAL SKELETON DXA BONE DENSITY STUDY / SITES AXIAL SKEL Sarah Pearson PA-C [address] [place] [address] [place] [address] Referral ID Status Reason Start Date Expiration Date V isits Requested Visits Authorized [id number] Closed Auto-Generate d Referral 05/15/2024 06/14/2025 1 1 [facility] for visit Narrative* MRI/CT (Urgent) - Closed Specialty Diagnoses / Procedures Referred By Contac t Referred To Contact MR IMAGING Diagnoses Anal cancer (HCC) Procedures MRI PELVIS WO/W IVCON MRI PELVIS W/O & W/CONTRAST MATERIAL Josh Bennett DO [address] [place] [address] Phone: tel: fax: [place] [address] Referral ID Status Reason Start Date Expiration Date V isits Requested Visits Authorized [id number] Closed Auto-Generate d Referral 09/16/2024 10/16/2025 1 1 [facility] for visit Narrative* Diagnostic Procedure Only [...] José Cheema MD [address] [place] [address] Phone: tel: fax: BR [facility] [address] [place] [address] Referral ID Status Reason Start Date Expiration Date V isits Requested Visits Authorized [id number] Closed Auto-Generate d Referral 09/30/2024 10/30/2025 1 1 [facility] for visit Narrative* MRI/CT (Routine) - Closed Specialty Diagnoses / Procedures Referred By Jordy nguyen Referred To Contact MR IMAGING Diagnoses Malignant neoplasm of anus (HCC) Anal cancer (HCC) Procedures MRI PELVIS WO/W IVCON MRI PELVIS W/O & W/CONTRAST MATERIAL Delvin Ron APRN.TRACY [address] [place] [address] Phone: tel: fax: [place] [address] Referral ID Status Reason Start Date Expiration Date V isits Requested Visits Authorized [id number] Closed Auto-Generate d Referral 02/01/2025 01/01/2026 1 1 [facility] Summary Purpose Family History No Family History Records Found Relationship Condition Age at Onset Recorded Date/T jay mother Asthma Unknown Hypertension Unknown Kidney disorder Unknown father Asthma Unknown Myocardial infarction Unknown daughter Asthma Unknown Diabetes mellitus Unknown sister Asthma Unknown Advance Directives No Advanced Directives Records FoundDocuments on File Type Date Recorded Patient Cable Weaver Expl anation Advance Directive(s) 08/15/2021 1:41 PM [...] Documents on File Type Date Recorded Patient Cable Weaver Expl anation Advance Directive(s) 08/15/2021 1:41 PM [...] Documents on File Type Date Recorded Patient Cable Weaver Expl anation Advance Directive(s) 05/07/2019 9:13 AM Documents on File Type Date Recorded Patient Cable Weaver Expl anation Advance Directive(s) 05/07/2019 9:13 AM Advance Directive Response Recorded Date/ Time Advance Directives No December 12 6 7:43pm Living Will No January 24, 2020 10:32am Power of Home Fire Alarm Installer No January 23 0 10:32am Advance Directive Response Recorded Date/ Time Advance Directives No December 12 6 8:43pm Living Will No January 24, 2020 11:32am Power of Home Fire Alarm Installer No January 23 0 11:32am Advance Directive Response Recorded Date/ Time Advance Directives No December 12 6 8:43pm Living Will No November 05, 2022 10:02am Power of Home Fire Alarm Installer No November 05 10:02am Advance Directive Response Recorded Date/ Time Advance Directives No December 12 6 8:43pm Living Will No January 09, 2023 2:02pm Power of Home Fire Alarm Installer No January 09 2:02pm Advance Directive Response Recorded Date/ Time Advance Directives No December 12 8:43pm Living Will Yes January 23, 2023 12:51pm Power of Home Fire Alarm Installer No January 23 12:51pm Advance Directive Response Recorded Date/ Time Advance Directives No December 12 7:43pm Living Will Yes January 23, 2023 11:51am Power of Home Fire Alarm Installer No January 23 11:51am Advance Directive Response Recorded Date/ Time Name of Medical Power of Home Fire Alarm Installer Anabel fontenot October 19, 2023 4:15pm Advance Directives No December 12 8:43pm Living Will Yes October 19, 2023 4:15pm Power of Home Fire Alarm Installer Yes October 18 4:15pm Documents on File Type Date Recorded Patient Cable Weaver Expl anation Advance Directive(s) 10/13/2024 8:49 AM Documents on File Type Date Recorded Patient Cable Weaver Expl anation Advance Directive(s) 10/13/2024 8:49 AM Advance Directive Response Recorded Date/ Time Living Will Yes March 17 8:51am Power of Home Fire Alarm Installer Yes March 17 024 8:51am Living Will Yes September 02 7:53pm Power of Home Fire Alarm Installer Yes September 02, 2024 7:53pm Name of Medical Power of Home Fire Alarm Installer Annabel keita September 02, 2024 7:53pm Living Will No September 24 025 8:18pm Power of Home Fire Alarm Installer No September 24, 2024 8:18pm Advance Directives No December 12 8:43pm Advance Directive Response Recorded Date/ Time Living Will Yes March 17 8:51am Do you have a Healthcare Pow er of Home Fire Alarm Installer? Yes March 17, 2024 8:51am Living Will Yes September 02 7:53pm Do you have a Healthcare Pow er of Home Fire Alarm Installer? Yes September 02, 2024 7:53pm Name of Medical Power of Home Fire Alarm Installer Annabel keita September 02, 2024 7:53pm Living Will No September 24 8:18pm Do you have a Healthcare Pow er of Home Fire Alarm Installer? No September 24, 2024 8:18pm Living Will Yes October 24, 2024 9:07pm Do you have a Healthcare Pow er of Home Fire Alarm Installer? Yes October 24, 2024 9:07pm Name of Medical Power of Home Fire Alarm Installer annabel banda may October 24, 2024 9:07pm Advance Directives No December 12 6 8:43pm Advance Directive Response Recorded Date/ Time Living Will Yes March 17 8:51am Do you have a Healthcare Pow er of Home Fire Alarm Installer? Yes March 17, 2024 8:51am Living Will Yes September 02 7:53pm Do you have a Healthcare Pow er of Home Fire Alarm Installer? Yes September 02, 2024 7:53pm Name of Medical Power of Home Fire Alarm Installer Annabeltereza Banda neela September 02, 2024 7:53pm Living Will No October 30, 2024 1:05am Do you have a Healthcare Pow er of Home Fire Alarm Installer? No October 30, 2024 1:05am Living Will No September 24 8:18pm Do you have a Healthcare Pow er of Home Fire Alarm Installer? No September 24, 2024 8:18pm Living Will Yes October 24, 2024 9:07pm Do you have a Healthcare Pow er of Home Fire Alarm Installer? Yes October 24, 2024 9:07pm Name of Medical Power of Home Fire Alarm Installer annabel banda may October 24, 2024 9:07pm Advance Directives No December 12 8:43pm Advance Directive Response Recorded Date/ Time Living Will Yes September 02 7:53pm Do you have a Healthcare Pow er of Home Fire Alarm Installer? Yes September 02, 2024 7:53pm Name of Medical Power of Home Fire Alarm Installer Annabel keita September 02, 2024 7:53pm Living Will No October 30, 2024 1:05am Do you have a Healthcare Pow er of Home Fire Alarm Installer? No October 30, 2024 1:05am Do you have a Healthcare Pow er of Home Fire Alarm Installer? No December 27, 2024 3:23pm Living Will No September 24 025 8:18pm Do you have a Healthcare Pow er of Home Fire Alarm Installer? No September 24, 2024 8:18pm Living Will Yes October 24, 2024 9:07pm Do you have a Healthcare Pow er of Home Fire Alarm Installer? Yes October 24, 2024 9:07pm Name of Medical Power of Home Fire Alarm Installer annabeltereza banda may October 24, 2024 9:07pm Advance Directives No December 12 6 8:43pm Advance Directive Response Recorded Date/ Time Living Will No October 30, 2024 1:05am Do you have a Healthcare Pow er of Home Fire Alarm Installer? No October 30, 2024 1:05am Do you have a Healthcare Pow er of Home Fire Alarm Installer? No December 27, 2024 3:23pm Living Will No September 24 8:18pm Do you have a Healthcare Pow er of Home Fire Alarm Installer? No September 24, 2024 8:18pm Living Will Yes October 24, 2024 9:07pm Do you have a Healthcare Pow er of Home Fire Alarm Installer? Yes October 24, 2024 9:07pm Name of Medical Power of Home Fire Alarm Installer annabel solo may October 24, 2024 9:07pm Advance Directives No December 12 6 8:43pm Advance Directive Response Recorded Date/ Time Living Will No October 30, 2024 1:05am Do you have a Healthcare Power of Home Fire Alarm Installer? No October 30, 2024 1:05am Do you have a Healthcare Power of Home Fire Alarm Installer? No December 27, 2024 3:23pm Living Will Yes October 24, 2024 9:07pm Do you have a Healthcare Power of Home Fire Alarm Installer? Yes October 24, 2024 9:07pm Name of Medical Power of Home Fire Alarm Installer annabel solo may October 24, 2024 9:07pm Advance Directives No December 12 6 8:43pm Advance Directive Response Recorded Date/ Time Living Will No October 30, 2024 1:05am Do you have a Healthcare Pow er of Home Fire Alarm Installer? No October 30, 2024 1:05am Do you have a Healthcare Pow er of Home Fire Alarm Installer? No December 27, 2024 3:23pm Do you have a Healthcare Pow er of Home Fire Alarm Installer? Yes February 27, 2025 5:52pm Name of Medical Power of Home Fire Alarm Installer magda olvera daughter February 27, 2025 5:52pm Advance Directives No December 12 8:43pm Advance Directive Response Recorded Date/ Time Do you have a Healthcare Pow er of Home Fire Alarm Installer? No December 27, 2024 3:23pm Do you have a Healthcare Pow er of Home Fire Alarm Installer? Yes February 24, 2025 2:24pm Do you have a Healthcare Pow er of Home Fire Alarm Installer? Yes February 27, 2025 5:52pm Name of Medical Power of Home Fire Alarm Installer magda olvera daughter February 27, 2025 5:52pm [...] Osteoarthritis of right knee Pain in right pealez Diarrhea Nausea Internal derangement of right knee [...] am Irritable bowel syndrome with diarrhea [facility] 2024 8:19am Chief Complaint Admit [...] am Irritable bowel syndrome with diarrhea [facility] 2024 8:19am Diarrhea February 02, [...] am Irritable bowel syndrome with diarrhea [facility] 2024 8:19am Diarrhea February 02, [...] am Irritable bowel syndrome with diarrhea [facility] 2024 8:19am Diarrhea February 02, [...] anemia type Procedures CONSULT TO HEMATOLOGY OFFICE/OUTPATIENT [facility] 60 MINUTES Sarah Pearson, LIZZIE [address] [place] [address] Referral ID Status Reason Start Date Expiration Date Visits Requested Visits Authorized [id number] Authorized PCP Requested Referral 05/29/2024 08/27/2024 1 1 Additional Source Comments INFORMATION SOURCE (unrecogn ized section and content) DATE CREATED AUTHOR 10/05/2019 [facility] DATE CREATED AUTHOR AUTHOR'S ORGANIZ ATION 05/08/2021 [facility] DATE CREATED AUTHOR AUTHOR'S ORGANIZ ATION 04/05/2022 [facility] ([place]) DATE CREATED AUTHOR AUTHOR'S ORGANIZ ATION 06/30/2024 [facility] DATE CREATED AUTHOR AUTHOR'S ORGANIZ ATION 11/04/2024 [facility] DATE CREATED AUTHOR AUTHOR'S ORGANIZ ATION 12/09/2024 [facility] DATE CREATED AUTHOR AUTHOR'S ORGANIZ ATION 03/20/2025 [facility] DATE CREATED AUTHOR AUTHOR'S ORGANIZ ATION 03/25/2025 [facility] Source Comments (unrecognize d section and content) In the event this informatio n is protected by the Federal Confidentiality of Alcohol and Drug Abuse Patient Records regulations: The Federal rules restrict any use of the information to criminally investigate or prosecute any alcohol or drug abuse patient.[facility] the event this information is protected by the Federal Confidentiality of Alcohol and Drug Abuse Patient Records regulations: The Federal rules restrict any use of the information to criminally investigate or prosecute any alcohol or drug abuse patient.[facility] the event this information is protected by the Federal Confidentiality of Alcohol and Drug Abuse Patient Records regulations: The Federal rules restrict any use of the information to criminally investigate or prosecute any alcohol or drug abuse patient.[facility] the event this information is protected by the Federal Confidentiality of Alcohol and Drug Abuse Patient Records regulations: The Federal rules restrict any use of the information to criminally investigate or prosecute any alcohol or drug abuse patient.[facility] the event this information is protected by the Federal Confidentiality of Alcohol and Drug Abuse Patient Records regulations: The Federal rules restrict any use of the information to criminally investigate or prosecute any alcohol or drug abuse patient.[facility] the event this information is protected by the Federal Confidentiality of Alcohol and Drug Abuse Patient Records regulations: The Federal rules restrict any use of the information to criminally investigate or prosecute any alcohol or drug abuse patient.[facility] the event this information is protected by the Federal Confidentiality of Alcohol and Drug Abuse Patient Records regulations: The Federal rules restrict any use of the information to criminally investigate or prosecute any alcohol or drug abuse patient.[facility] the event this information is protected by the Federal Confidentiality of Alcohol and Drug Abuse Patient Records regulations: The Federal rules restrict any use of the information to criminally investigate or prosecute any alcohol or drug abuse patient.[facility] the event this information is protected by the Federal Confidentiality of Alcohol and Drug Abuse Patient Records regulations: The Federal rules restrict any use of the information to criminally investigate or prosecute any alcohol or drug abuse patient.[facility] the event this information is protected by the Federal Confidentiality of Alcohol and Drug Abuse Patient Records regulations: The Federal rules restrict any use of the information to criminally investigate or prosecute any alcohol or drug abuse patient.[facility] the event this information is protected by the Federal Confidentiality of Alcohol and Drug Abuse Patient Records regulations: The Federal rules restrict any use of the information to criminally investigate or prosecute any alcohol or drug abuse patient.[facility] the event this information is protected by the Federal Confidentiality of Alcohol and Drug Abuse Patient Records regulations: The Federal rules restrict any use of the information to criminally investigate or prosecute any alcohol or drug abuse patient.[facility] the event this information is protected by the Federal Confidentiality of Alcohol and Drug Abuse Patient Records regulations: The Federal rules restrict any use of the information to criminally investigate or prosecute any alcohol or drug abuse patient.[facility] the event this information is protected by the Federal Confidentiality of Alcohol and Drug Abuse Patient Records regulations: The Federal rules restrict any use of the information to criminally investigate or prosecute any alcohol or drug abuse patient.[facility] the event this information is protected by the Federal Confidentiality of Alcohol and Drug Abuse Patient Records regulations: The Federal rules restrict any use of the information to criminally investigate or prosecute any alcohol or drug abuse patient.[facility] the event this information is protected by the Federal Confidentiality of Alcohol and Drug Abuse Patient Records regulations: The Federal rules restrict any use of the information to criminally investigate or prosecute any alcohol or drug abuse patient.[facility] the event this information is protected by the Federal Confidentiality of Alcohol and Drug Abuse Patient Records regulations: The Federal rules restrict any use of the information to criminally investigate or prosecute any alcohol or drug abuse patient.[facility] the event this information is protected by the Federal Confidentiality of Alcohol and Drug Abuse Patient Records regulations: The Federal rules restrict any use of the information to criminally investigate or prosecute any alcohol or drug abuse patient.[facility]In the event this information is protected by the Federal Confidentiality of Alcohol and Drug Abuse Patient Records regulations: The Federal rules restrict any use of the information to criminally investigate or prosecute any alcohol or drug abuse patient.[facility]In the event this information is protected by the Federal Confidentiality of Alcohol and Drug Abuse Patient Records regulations: The Federal rules restrict any use of the information to criminally investigate or prosecute any alcohol or drug abuse patient.[facility] the event this information is protected by the Federal Confidentiality of Alcohol and Drug Abuse Patient Records regulations: The Federal rules restrict any use of the information to criminally investigate or prosecute any alcohol or drug abuse patient.[facility] the event this information is protected by the Federal Confidentiality of Alcohol and Drug Abuse Patient Records regulations: The Federal rules restrict any use of the information to criminally investigate or prosecute any alcohol or drug abuse patient.[facility] the event this information is protected by the Federal Confidentiality of Alcohol and Drug Abuse Patient Records regulations: The Federal rules restrict any use of the information to criminally investigate or prosecute any alcohol or drug abuse patient.[facility] the event this information is protected by the Federal Confidentiality of Alcohol and Drug Abuse Patient Records regulations: The Federal rules restrict any use of the information to criminally investigate or prosecute any alcohol or drug abuse patient.[facility] the event this information is protected by the Federal Confidentiality of Alcohol and Drug Abuse Patient Records regulations: The Federal rules restrict any use of the information to criminally investigate or prosecute any alcohol or drug abuse patient.[facility]In the event this information is protected by the Federal Confidentiality of Alcohol and Drug Abuse Patient Records regulations: The Federal rules restrict any use of the information to criminally investigate or prosecute any alcohol or drug abuse patient.[facility]In the event this information is protected by the Federal Confidentiality of Alcohol and Drug Abuse Patient Records regulations: The Federal rules restrict any use of the information to criminally investigate or prosecute any alcohol or drug abuse patient.[facility] the event this information is protected by the Federal Confidentiality of Alcohol and Drug Abuse Patient Records regulations: The Federal rules restrict any use of the information to criminally investigate or prosecute any alcohol or drug abuse patient.[facility]In the event this information is protected by the Federal Confidentiality of Alcohol and Drug Abuse Patient Records regulations: The Federal rules restrict any use of the information to criminally investigate or prosecute any alcohol or drug abuse patient.[facility]In the event this information is protected by the Federal Confidentiality of Alcohol and Drug Abuse Patient Records regulations: The Federal rules restrict any use of the information to criminally investigate or prosecute any alcohol or drug abuse patient.[facility]In the event this information is protected by the Federal Confidentiality of Alcohol and Drug Abuse Patient Records regulations: The Federal rules restrict any use of the information to criminally investigate or prosecute any alcohol or drug abuse patient.[facility]In the event this information is protected by the Federal Confidentiality of Alcohol and Drug Abuse Patient Records regulations: The Federal rules restrict any use of the information to criminally investigate or prosecute any alcohol or drug abuse patient.[facility]In the event this information is protected by the Federal Confidentiality of Alcohol and Drug Abuse Patient Records regulations: The Federal rules restrict any use of the information to criminally investigate or prosecute any alcohol or drug abuse patient.[facility]In the event this information is protected by the Federal Confidentiality of Alcohol and Drug Abuse Patient Records regulations: The Federal rules restrict any use of the information to criminally investigate or prosecute any alcohol or drug abuse patient.[facility]In the event this information is protected by the Federal Confidentiality of Alcohol and Drug Abuse Patient Records regulations: The Federal rules restrict any use of the information to criminally investigate or prosecute any alcohol or drug abuse patient.[facility]In the event this information is protected by the Federal Confidentiality of Alcohol and Drug Abuse Patient Records regulations: The Federal rules restrict any use of the information to criminally investigate or prosecute any alcohol or drug abuse patient.[facility]In the event this information is protected by the Federal Confidentiality of Alcohol and Drug Abuse Patient Records regulations: The Federal rules restrict any use of the information to criminally investigate or prosecute any alcohol or drug abuse patient.[facility]In the event this information is protected by the Federal Confidentiality of Alcohol and Drug Abuse Patient Records regulations: The Federal rules restrict any use of the information to criminally investigate or prosecute any alcohol or drug abuse patient.[facility]In the event this information is protected by the Federal Confidentiality of Alcohol and Drug Abuse Patient Records regulations: The Federal rules restrict any use of the information to criminally investigate or prosecute any alcohol or drug abuse patient.[facility]In the event this information is protected by the Federal Confidentiality of Alcohol and Drug Abuse Patient Records regulations: The Federal rules restrict any use of the information to criminally investigate or prosecute any alcohol or drug abuse patient.[facility]In the event this information is protected by the Federal Confidentiality of Alcohol and Drug Abuse Patient Records regulations: The Federal rules restrict any use of the information to criminally investigate or prosecute any alcohol or drug abuse patient.[facility]In the event this information is protected by the Federal Confidentiality of Alcohol and Drug Abuse Patient Records regulations: The Federal rules restrict any use of the information to criminally investigate or prosecute any alcohol or drug abuse patient.[facility]In the event this information is protected by the Federal Confidentiality of Alcohol and Drug Abuse Patient Records regulations: The Federal rules restrict any use of the information to criminally investigate or prosecute any alcohol or drug abuse patient.[facility]In the event this information is protected by the Federal Confidentiality of Alcohol and Drug Abuse Patient Records regulations: The Federal rules restrict any use of the information to criminally investigate or prosecute any alcohol or drug abuse patient.[facility]In the event this information is protected by the Federal Confidentiality of Alcohol and Drug Abuse Patient Records regulations: The Federal rules restrict any use of the information to criminally investigate or prosecute any alcohol or drug abuse patient.[facility]In the event this information is protected by the Federal Confidentiality of Alcohol and Drug Abuse Patient Records regulations: The Federal rules restrict any use of the information to criminally investigate or prosecute any alcohol or drug abuse patient.[facility]In the event this information is protected by the Federal Confidentiality of Alcohol and Drug Abuse Patient Records regulations: The Federal rules restrict any use of the information to criminally investigate or prosecute any alcohol or drug abuse patient.[facility]In the event this information is protected by the Federal Confidentiality of Alcohol and Drug Abuse Patient Records regulations: The Federal rules restrict any use of the information to criminally investigate or prosecute any alcohol or drug abuse patient.[facility]In the event this information is protected by the Federal Confidentiality of Alcohol and Drug Abuse Patient Records regulations: The Federal rules restrict any use of the information to criminally investigate or prosecute any alcohol or drug abuse patient.[facility]In the event this information is protected by the Federal Confidentiality of Alcohol and Drug Abuse Patient Records regulations: The Federal rules restrict any use of the information to criminally investigate or prosecute any alcohol or drug abuse patient.[facility]In the event this information is protected by the Federal Confidentiality of Alcohol and Drug Abuse Patient Records regulations: The Federal rules restrict any use of the information to criminally investigate or prosecute any alcohol or drug abuse patient.[facility]In the event this information is protected by the Federal Confidentiality of Alcohol and Drug Abuse Patient Records regulations: The Federal rules restrict any use of the information to criminally investigate or prosecute any alcohol or drug abuse patient.[facility]In the event this information is protected by the Federal Confidentiality of Alcohol and Drug Abuse Patient Records regulations: The Federal rules restrict any use of the information to criminally investigate or prosecute any alcohol or drug abuse patient.[facility]In the event this information is protected by the Federal Confidentiality of Alcohol and Drug Abuse Patient Records regulations: The Federal rules restrict any use of the information to criminally investigate or prosecute any alcohol or drug abuse patient.[facility]In the event this information is protected by the Federal Confidentiality of Alcohol and Drug Abuse Patient Records regulations: The Federal rules restrict any use of the information to criminally investigate or prosecute any alcohol or drug abuse patient.[facility]In the event this information is protected by the Federal Confidentiality of Alcohol and Drug Abuse Patient Records regulations: The Federal rules restrict any use of the information to criminally investigate or prosecute any alcohol or drug abuse patient.[facility]In the event this information is protected by the Federal Confidentiality of Alcohol and Drug Abuse Patient Records regulations: The Federal rules restrict any use of the information to criminally investigate or prosecute any alcohol or drug abuse patient.[facility]In the event this information is protected by the Federal Confidentiality of Alcohol and Drug Abuse Patient Records regulations: The Federal rules restrict any use of the information to criminally investigate or prosecute any alcohol or drug abuse patient.[facility]In the event this information is protected by the Federal Confidentiality of Alcohol and Drug Abuse Patient Records regulations: The Federal rules restrict any use of the information to criminally investigate or prosecute any alcohol or drug abuse patient.[facility]In the event this information is protected by the Federal Confidentiality of Alcohol and Drug Abuse Patient Records regulations: The Federal rules restrict any use of the information to criminally investigate or prosecute any alcohol or drug abuse patient.[facility]In the event this information is protected by the Federal Confidentiality of Alcohol and Drug Abuse Patient Records regulations: The Federal rules restrict any use of the information to criminally investigate or prosecute any alcohol or drug abuse patient.[facility]In the event this information is protected by the Federal Confidentiality of Alcohol and Drug Abuse Patient Records regulations: The Federal rules restrict any use of the information to criminally investigate or prosecute any alcohol or drug abuse patient.[facility]In the event this information is protected by the Federal Confidentiality of Alcohol and Drug Abuse Patient Records regulations: The Federal rules restrict any use of the information to criminally investigate or prosecute any alcohol or drug abuse patient.[facility]In the event this information is protected by the Federal Confidentiality of Alcohol and Drug Abuse Patient Records regulations: The Federal rules restrict any use of the information to criminally investigate or prosecute any alcohol or drug abuse patient.[facility]In the event this information is protected by the Federal Confidentiality of Alcohol and Drug Abuse Patient Records regulations: The Federal rules restrict any use of the information to criminally investigate or prosecute any alcohol or drug abuse patient.[facility]In the event this information is protected by the Federal Confidentiality of Alcohol and Drug Abuse Patient Records regulations: The Federal rules restrict any use of the information to criminally investigate or prosecute any alcohol or drug abuse patient.[facility]In the event this information is protected by the Federal Confidentiality of Alcohol and Drug Abuse Patient Records regulations: The Federal rules restrict any use of the information to criminally investigate or prosecute any alcohol or drug abuse patient.[facility]In the event this information is protected by the Federal Confidentiality of Alcohol and Drug Abuse Patient Records regulations: The Federal rules restrict any use of the information to criminally investigate or prosecute any alcohol or drug abuse patient.[facility]In the event this information is protected by the Federal Confidentiality of Alcohol and Drug Abuse Patient Records regulations: The Federal rules restrict any use of the information to criminally investigate or prosecute any alcohol or drug abuse patient.[facility]In the event this information is protected by the Federal Confidentiality of Alcohol and Drug Abuse Patient Records regulations: The Federal rules restrict any use of the information to criminally investigate or prosecute any alcohol or drug abuse patient.[facility]In the event this information is protected by the Federal Confidentiality of Alcohol and Drug Abuse Patient Records regulations: The Federal rules restrict any use of the information to criminally investigate or prosecute any alcohol or drug abuse patient.[facility]In the event this information is protected by the Federal Confidentiality of Alcohol and Drug Abuse Patient Records regulations: The Federal rules restrict any use of the information to criminally investigate or prosecute any alcohol or drug abuse patient.[facility]In the event this information is protected by the Federal Confidentiality of Alcohol and Drug Abuse Patient Records regulations: The Federal rules restrict any use of the information to criminally investigate or prosecute any alcohol or drug abuse patient.[facility]In the event this information is protected by the Federal Confidentiality of Alcohol and Drug Abuse Patient Records regulations: The Federal rules restrict any use of the information to criminally investigate or prosecute any alcohol or drug abuse patient.[facility]In the event this information is protected by the Federal Confidentiality of Alcohol and Drug Abuse Patient Records regulations: The Federal rules restrict any use of the information to criminally investigate or prosecute any alcohol or drug abuse patient.[facility]In the event this information is protected by the Federal Confidentiality of Alcohol and Drug Abuse Patient Records regulations: The Federal rules restrict any use of the information to criminally investigate or prosecute any alcohol or drug abuse patient.[facility]In the event this information is protected by the Federal Confidentiality of Alcohol and Drug Abuse Patient Records regulations: The Federal rules restrict any use of the information to criminally investigate or prosecute any alcohol or drug abuse patient.[facility]In the event this information is protected by the Federal Confidentiality of Alcohol and Drug Abuse Patient Records regulations: The Federal rules restrict any use of the information to criminally investigate or prosecute any alcohol or drug abuse patient.[facility]In the event this information is protected by the Federal Confidentiality of Alcohol and Drug Abuse Patient Records regulations: The Federal rules restrict any use of the information to criminally investigate or prosecute any alcohol or drug abuse patient.[facility]In the event this information is protected by the Federal Confidentiality of Alcohol and Drug Abuse Patient Records regulations: The Federal rules restrict any use of the information to criminally investigate or prosecute any alcohol or drug abuse patient.[facility]In the event this information is protected by the Federal Confidentiality of Alcohol and Drug Abuse Patient Records regulations: The Federal rules restrict any use of the information to criminally investigate or prosecute any alcohol or drug abuse patient.[facility]In the event this information is protected by the Federal Confidentiality of Alcohol and Drug Abuse Patient Records regulations: The Federal rules restrict any use of the information to criminally investigate or prosecute any alcohol or drug abuse patient.[facility]In the event this information is protected by the Federal Confidentiality of Alcohol and Drug Abuse Patient Records regulations: The Federal rules restrict any use of the information to criminally investigate or prosecute any alcohol or drug abuse patient.[facility]In the event this information is protected by the Federal Confidentiality of Alcohol and Drug Abuse Patient Records regulations: The Federal rules restrict any use of the information to criminally investigate or prosecute any alcohol or drug abuse patient.[facility]In the event this information is protected by the Federal Confidentiality of Alcohol and Drug Abuse Patient Records regulations: The Federal rules restrict any use of the information to criminally investigate or prosecute any alcohol or drug abuse patient.[facility]In the event this information is protected by the Federal Confidentiality of Alcohol and Drug Abuse Patient Records regulations: The Federal rules restrict any use of the information to criminally investigate or prosecute any alcohol or drug abuse patient.[facility]In the event this information is protected by the Federal Confidentiality of Alcohol and Drug Abuse Patient Records regulations: The Federal rules restrict any use of the information to criminally investigate or prosecute any alcohol or drug abuse patient.[facility]In the event this information is protected by the Federal Confidentiality of Alcohol and Drug Abuse Patient Records regulations: The Federal rules restrict any use of the information to criminally investigate or prosecute any alcohol or drug abuse patient.[facility]In the event this information is protected by the Federal Confidentiality of Alcohol and Drug Abuse Patient Records regulations: The Federal rules restrict any use of the information to criminally investigate or prosecute any alcohol or drug abuse patient.[facility]In the event this information is protected by the Federal Confidentiality of Alcohol and Drug Abuse Patient Records regulations: The Federal rules restrict any use of the information to criminally investigate or prosecute any alcohol or drug abuse patient.[facility]In the event this information is protected by the Federal Confidentiality of Alcohol and Drug Abuse Patient Records regulations: The Federal rules restrict any use of the information to criminally investigate or prosecute any alcohol or drug abuse patient.[facility]In the event this information is protected by the Federal Confidentiality of Alcohol and Drug Abuse Patient Records regulations: The Federal rules restrict any use of the information to criminally investigate or prosecute any alcohol or drug abuse patient.[facility]In the event this information is protected by the Federal Confidentiality of Alcohol and Drug Abuse Patient Records regulations: The Federal rules restrict any use of the information to criminally investigate or prosecute any alcohol or drug abuse patient.[facility]In the event this information is protected by the Federal Confidentiality of Alcohol and Drug Abuse Patient Records regulations: The Federal rules restrict any use of the information to criminally investigate or prosecute any alcohol or drug abuse patient.[facility]In the event this information is protected by the Federal Confidentiality of Alcohol and Drug Abuse Patient Records regulations: The Federal rules restrict any use of the information to criminally investigate or prosecute any alcohol or drug abuse patient.[facility]In the event this information is protected by the Federal Confidentiality of Alcohol and Drug Abuse Patient Records regulations: The Federal rules restrict any use of the information to criminally investigate or prosecute any alcohol or drug abuse patient.[facility]In the event this information is protected by the Federal Confidentiality of Alcohol and Drug Abuse Patient Records regulations: The Federal rules restrict any use of the information to criminally investigate or prosecute any alcohol or drug abuse patient.[facility]In the event this information is protected by the Federal Confidentiality of Alcohol and Drug Abuse Patient Records regulations: The Federal rules restrict any use of the information to criminally investigate or prosecute any alcohol or drug abuse patient.[facility]In the event this information is protected by the Federal Confidentiality of Alcohol and Drug Abuse Patient Records regulations: The Federal rules restrict any use of the information to criminally investigate or prosecute any alcohol or drug abuse patient.[facility]In the event this information is protected by the Federal Confidentiality of Alcohol and Drug Abuse Patient Records regulations: The Federal rules restrict any use of the information to criminally investigate or prosecute any alcohol or drug abuse patient.[facility]In the event this information is protected by the Federal Confidentiality of Alcohol and Drug Abuse Patient Records regulations: The Federal rules restrict any use of the information to criminally investigate or prosecute any alcohol or drug abuse patient.[facility]In the event this information is protected by the Federal Confidentiality of Alcohol and Drug Abuse Patient Records regulations: The Federal rules restrict any use of the information to criminally investigate or prosecute any alcohol or drug abuse patient.[facility]In the event this information is protected by the Federal Confidentiality of Alcohol and Drug Abuse Patient Records regulations: The Federal rules restrict any use of the information to criminally investigate or prosecute any alcohol or drug abuse patient.[facility]In the event this information is protected by the Federal Confidentiality of Alcohol and Drug Abuse Patient Records regulations: The Federal rules restrict any use of the information to criminally investigate or prosecute any alcohol or drug abuse patient.[facility]In the event this information is protected by the Federal Confidentiality of Alcohol and Drug Abuse Patient Records regulations: The Federal rules restrict any use of the information to criminally investigate or prosecute any alcohol or drug abuse patient.[facility]In the event this information is protected by the Federal Confidentiality of Alcohol and Drug Abuse Patient Records regulations: The Federal rules restrict any use of the information to criminally investigate or prosecute any alcohol or drug abuse patient.[facility]In the event this information is protected by the Federal Confidentiality of Alcohol and Drug Abuse Patient Records regulations: The Federal rules restrict any use of the information to criminally investigate or prosecute any alcohol or drug abuse patient.[facility]In the event this information is protected by the Federal Confidentiality of Alcohol and Drug Abuse Patient Records regulations: The Federal rules restrict any use of the information to criminally investigate or prosecute any alcohol or drug abuse patient.[facility]In the event this information is protected by the Federal Confidentiality of Alcohol and Drug Abuse Patient Records regulations: The Federal rules restrict any use of the information to criminally investigate or prosecute any alcohol or drug abuse patient.[facility]In the event this information is protected by the Federal Confidentiality of Alcohol and Drug Abuse Patient Records regulations: The Federal rules restrict any use of the information to criminally investigate or prosecute any alcohol or drug abuse patient.[facility]In the event this information is protected by the Federal Confidentiality of Alcohol and Drug Abuse Patient Records regulations: The Federal rules restrict any use of the information to criminally investigate or prosecute any alcohol or drug abuse patient.[facility]In the event this information is protected by the Federal Confidentiality of Alcohol and Drug Abuse Patient Records regulations: The Federal rules restrict any use of the information to criminally investigate or prosecute any alcohol or drug abuse patient.[facility]In the event this information is protected by the Federal Confidentiality of Alcohol and Drug Abuse Patient Records regulations: The Federal rules restrict any use of the information to criminally investigate or prosecute any alcohol or drug abuse patient.[facility]In the event this information is protected by the Federal Confidentiality of Alcohol and Drug Abuse Patient Records regulations: The Federal rules restrict any use of the information to criminally investigate or prosecute any alcohol or drug abuse patient.[facility]In the event this information is protected by the Federal Confidentiality of Alcohol and Drug Abuse Patient Records regulations: The Federal rules restrict any use of the information to criminally investigate or prosecute any alcohol or drug abuse patient.[facility]In the event this information is protected by the Federal Confidentiality of Alcohol and Drug Abuse Patient Records regulations: The Federal rules restrict any use of the information to criminally investigate or prosecute any alcohol or drug abuse patient.[facility]In the event this information is protected by the Federal Confidentiality of Alcohol and Drug Abuse Patient Records regulations: The Federal rules restrict any use of the information to criminally investigate or prosecute any alcohol or drug abuse patient.[facility]In the event this information is protected by the Federal Confidentiality of Alcohol and Drug Abuse Patient Records regulations: The Federal rules restrict any use of the information to criminally investigate or prosecute any alcohol or drug abuse patient.[facility]In the event this information is protected by the Federal Confidentiality of Alcohol and Drug Abuse Patient Records regulations: The Federal rules restrict any use of the information to criminally investigate or prosecute any alcohol or drug abuse patient.[facility]In the event this information is protected by the Federal Confidentiality of Alcohol and Drug Abuse Patient Records regulations: The Federal rules restrict any use of the information to criminally investigate or prosecute any alcohol or drug abuse patient.[facility]In the event this information is protected by the Federal Confidentiality of Alcohol and Drug Abuse Patient Records regulations: The Federal rules restrict any use of the information to criminally investigate or prosecute any alcohol or drug abuse patient.[facility]In the event this information is protected by the Federal Confidentiality of Alcohol and Drug Abuse Patient Records regulations: The Federal rules restrict any use of the information to criminally investigate or prosecute any alcohol or drug abuse patient.[facility]In the event this information is protected by the Federal Confidentiality of Alcohol and Drug Abuse Patient Records regulations: The Federal rules restrict any use of the information to criminally investigate or prosecute any alcohol or drug abuse patient.[facility]In the event this information is protected by the Federal Confidentiality of Alcohol and Drug Abuse Patient Records regulations: The Federal rules restrict any use of the information to criminally investigate or prosecute any alcohol or drug abuse patient.[facility]In the event this information is protected by the Federal Confidentiality of Alcohol and Drug Abuse Patient Records regulations: The Federal rules restrict any use of the information to criminally investigate or prosecute any alcohol or drug abuse patient.[facility]In the event this information is protected by the Federal Confidentiality of Alcohol and Drug Abuse Patient Records regulations: The Federal rules restrict any use of the information to criminally investigate or prosecute any alcohol or drug abuse patient.[facility]In the event this information is protected by the Federal Confidentiality of Alcohol and Drug Abuse Patient Records regulations: The Federal rules restrict any use of the information to criminally investigate or prosecute any alcohol or drug abuse patient.[facility]In the event this information is protected by the Federal Confidentiality of Alcohol and Drug Abuse Patient Records regulations: The Federal rules restrict any use of the information to criminally investigate or prosecute any alcohol or drug abuse patient.[facility]In the event this information is protected by the Federal Confidentiality of Alcohol and Drug Abuse Patient Records regulations: The Federal rules restrict any use of the information to criminally investigate or prosecute any alcohol or drug abuse patient.[facility]In the event this information is protected by the Federal Confidentiality of Alcohol and Drug Abuse Patient Records regulations: The Federal rules restrict any use of the information to criminally investigate or prosecute any alcohol or drug abuse patient.[facility]In the event this information is protected by the Federal Confidentiality of Alcohol and Drug Abuse Patient Records regulations: The Federal rules restrict any use of the information to criminally investigate or prosecute any alcohol or drug abuse patient.[facility]In the event this information is protected by the Federal Confidentiality of Alcohol and Drug Abuse Patient Records regulations: The Federal rules restrict any use of the information to criminally investigate or prosecute any alcohol or drug abuse patient.[facility]In the event this information is protected by the Federal Confidentiality of Alcohol and Drug Abuse Patient Records regulations: The Federal rules restrict any use of the information to criminally investigate or prosecute any alcohol or drug abuse patient.[facility]In the event this information is protected by the Federal Confidentiality of Alcohol and Drug Abuse Patient Records regulations: The Federal rules restrict any use of the information to criminally investigate or prosecute any alcohol or drug abuse patient.[facility]In the event this information is protected by the Federal Confidentiality of Alcohol and Drug Abuse Patient Records regulations: The Federal rules restrict any use of the information to criminally investigate or prosecute any alcohol or drug abuse patient.[facility]In the event this information is protected by the Federal Confidentiality of Alcohol and Drug Abuse Patient Records regulations: The Federal rules restrict any use of the information to criminally investigate or prosecute any alcohol or drug abuse patient.[facility]In the event this information is protected by the Federal Confidentiality of Alcohol and Drug Abuse Patient Records regulations: The Federal rules restrict any use of the information to criminally investigate or prosecute any alcohol or drug abuse patient.[facility]In the event this information is protected by the Federal Confidentiality of Alcohol and Drug Abuse Patient Records regulations: The Federal rules restrict any use of the information to criminally investigate or prosecute any alcohol or drug abuse patient.[facility]In the event this information is protected by the Federal Confidentiality of Alcohol and Drug Abuse Patient Records regulations: The Federal rules restrict any use of the information to criminally investigate or prosecute any alcohol or drug abuse patient.[facility]In the event this information is protected by the Federal Confidentiality of Alcohol and Drug Abuse Patient Records regulations: The Federal rules restrict any use of the information to criminally investigate or prosecute any alcohol or drug abuse patient.[facility]In the event this information is protected by the Federal Confidentiality of Alcohol and Drug Abuse Patient Records regulations: The Federal rules restrict any use of the information to criminally investigate or prosecute any alcohol or drug abuse patient.[facility]In the event this information is protected by the Federal Confidentiality of Alcohol and Drug Abuse Patient Records regulations: The Federal rules restrict any use of the information to criminally investigate or prosecute any alcohol or drug abuse patient.[facility]In the event this information is protected by the Federal Confidentiality of Alcohol and Drug Abuse Patient Records regulations: The Federal rules restrict any use of the information to criminally investigate or prosecute any alcohol or drug abuse patient.[facility]In the event this information is protected by the Federal Confidentiality of Alcohol and Drug Abuse Patient Records regulations: The Federal rules restrict any use of the information to criminally investigate or prosecute any alcohol or drug abuse patient.[facility]In the event this information is protected by the Federal Confidentiality of Alcohol and Drug Abuse Patient Records regulations: The Federal rules restrict any use of the information to criminally investigate or prosecute any alcohol or drug abuse patient.[facility]In the event this information is protected by the Federal Confidentiality of Alcohol and Drug Abuse Patient Records regulations: The Federal rules restrict any use of the information to criminally investigate or prosecute any alcohol or drug abuse patient.[facility]In the event this information is protected by the Federal Confidentiality of Alcohol and Drug Abuse Patient Records regulations: The Federal rules restrict any use of the information to criminally investigate or prosecute any alcohol or drug abuse patient.[facility]In the event this information is protected by the Federal Confidentiality of Alcohol and Drug Abuse Patient Records regulations: The Federal rules restrict any use of the information to criminally investigate or prosecute any alcohol or drug abuse patient.[facility]In the event this information is protected by the Federal Confidentiality of Alcohol and Drug Abuse Patient Records regulations: The Federal rules restrict any use of the information to criminally investigate or prosecute any alcohol or drug abuse patient.[facility]In the event this information is protected by the Federal Confidentiality of Alcohol and Drug Abuse Patient Records regulations: The Federal rules restrict any use of the information to criminally investigate or prosecute any alcohol or drug abuse patient.[facility]In the event this information is protected by the Federal Confidentiality of Alcohol and Drug Abuse Patient Records regulations: The Federal rules restrict any use of the information to criminally investigate or prosecute any alcohol or drug abuse patient.[facility]In the event this information is protected by the Federal Confidentiality of Alcohol and Drug Abuse Patient Records regulations: The Federal rules restrict any use of the information to criminally investigate or prosecute any alcohol or drug abuse patient.[facility]In the event this information is protected by the Federal Confidentiality of Alcohol and Drug Abuse Patient Records regulations: The Federal rules restrict any use of the information to criminally investigate or prosecute any alcohol or drug abuse patient.[facility]In the event this information is protected by the Federal Confidentiality of Alcohol and Drug Abuse Patient Records regulations: The Federal rules restrict any use of the information to criminally investigate or prosecute any alcohol or drug abuse patient.[facility]In the event this information is protected by the Federal Confidentiality of Alcohol and Drug Abuse Patient Records regulations: The Federal rules restrict any use of the information to criminally investigate or prosecute any alcohol or drug abuse patient.[facility]In the event this information is protected by the Federal Confidentiality of Alcohol and Drug Abuse Patient Records regulations: The Federal rules restrict any use of the information to criminally investigate or prosecute any alcohol or drug abuse patient.[facility]In the event this information is protected by the Federal Confidentiality of Alcohol and Drug Abuse Patient Records regulations: The Federal rules restrict any use of the information to criminally investigate or prosecute any alcohol or drug abuse patient.[facility]In the event this information is protected by the Federal Confidentiality of Alcohol and Drug Abuse Patient Records regulations: The Federal rules restrict any use of the information to criminally investigate or prosecute any alcohol or drug abuse patient.[facility]In the event this information is protected by the Federal Confidentiality of Alcohol and Drug Abuse Patient Records regulations: The Federal rules restrict any use of the information to criminally investigate or prosecute any alcohol or drug abuse patient.[facility]In the event this information is protected by the Federal Confidentiality of Alcohol and Drug Abuse Patient Records regulations: The Federal rules restrict any use of the information to criminally investigate or prosecute any alcohol or drug abuse patient.[facility]In the event this information is protected by the Federal Confidentiality of Alcohol and Drug Abuse Patient Records regulations: The Federal rules restrict any use of the information to criminally investigate or prosecute any alcohol or drug abuse patient.[facility]In the event this information is protected by the Federal Confidentiality of Alcohol and Drug Abuse Patient Records regulations: The Federal rules restrict any use of the information to criminally investigate or prosecute any alcohol or drug abuse patient.[facility]In the event this information is protected by the Federal Confidentiality of Alcohol and Drug Abuse Patient Records regulations: The Federal rules restrict any use of the information to criminally investigate or prosecute any alcohol or drug abuse patient.[facility]In the event this information is protected by the Federal Confidentiality of Alcohol and Drug Abuse Patient Records regulations: The Federal rules restrict any use of the information to criminally investigate or prosecute any alcohol or drug abuse patient.[facility]In the event this information is protected by the Federal Confidentiality of Alcohol and Drug Abuse Patient Records regulations: The Federal rules restrict any use of the information to criminally investigate or prosecute any alcohol or drug abuse patient.[facility]In the event this information is protected by the Federal Confidentiality of Alcohol and Drug Abuse Patient Records regulations: The Federal rules restrict any use of the information to criminally investigate or prosecute any alcohol or drug abuse patient.[facility]In the event this information is protected by the Federal Confidentiality of Alcohol and Drug Abuse Patient Records regulations: The Federal rules restrict any use of the information to criminally investigate or prosecute any alcohol or drug abuse patient.[facility]In the event this information is protected by the Federal Confidentiality of Alcohol and Drug Abuse Patient Records regulations: The Federal rules restrict any use of the information to criminally investigate or prosecute any alcohol or drug abuse patient.[facility]In the event this information is protected by the Federal Confidentiality of Alcohol and Drug Abuse Patient Records regulations: The Federal rules restrict any use of the information to criminally investigate or prosecute any alcohol or drug abuse patient.[facility]In the event this information is protected by the Federal Confidentiality of Alcohol and Drug Abuse Patient Records regulations: The Federal rules restrict any use of the information to criminally investigate or prosecute any alcohol or drug abuse patient.[facility]In the event this information is protected by the Federal Confidentiality of Alcohol and Drug Abuse Patient Records regulations: The Federal rules restrict any use of the information to criminally investigate or prosecute any alcohol or drug abuse patient.[facility]In the event this information is protected by the Federal Confidentiality of Alcohol and Drug Abuse Patient Records regulations: The Federal rules restrict any use of the information to criminally investigate or prosecute any alcohol or drug abuse patient.[facility]In the event this information is protected by the Federal Confidentiality of Alcohol and Drug Abuse Patient Records regulations: The Federal rules restrict any use of the information to criminally investigate or prosecute any alcohol or drug abuse patient.[facility]In the event this information is protected by the Federal Confidentiality of Alcohol and Drug Abuse Patient Records regulations: The Federal rules restrict any use of the information to criminally investigate or prosecute any alcohol or drug abuse patient.[facility]In the event this information is protected by the Federal Confidentiality of Alcohol and Drug Abuse Patient Records regulations: The Federal rules restrict any use of the information to criminally investigate or prosecute any alcohol or drug abuse patient.[facility]In the event this information is protected by the Federal Confidentiality of Alcohol and Drug Abuse Patient Records regulations: The Federal rules restrict any use of the information to criminally investigate or prosecute any alcohol or drug abuse patient.[facility]In the event this information is protected by the Federal Confidentiality of Alcohol and Drug Abuse Patient Records regulations: The Federal rules restrict any use of the information to criminally investigate or prosecute any alcohol or drug abuse patient.[facility]In the event this information is protected by the Federal Confidentiality of Alcohol and Drug Abuse Patient Records regulations: The Federal rules restrict any use of the information to criminally investigate or prosecute any alcohol or drug abuse patient.[facility]In the event this information is protected by the Federal Confidentiality of Alcohol and Drug Abuse Patient Records regulations: The Federal rules restrict any use of the information to criminally investigate or prosecute any alcohol or drug abuse patient.[facility]In the event this information is protected by the Federal Confidentiality of Alcohol and Drug Abuse Patient Records regulations: The Federal rules restrict any use of the information to criminally investigate or prosecute any alcohol or drug abuse patient.[facility]In the event this information is protected by the Federal Confidentiality of Alcohol and Drug Abuse Patient Records regulations: The Federal rules restrict any use of the information to criminally investigate or prosecute any alcohol or drug abuse patient.[facility]In the event this information is protected by the Federal Confidentiality of Alcohol and Drug Abuse Patient Records regulations: The Federal rules restrict any use of the information to criminally investigate or prosecute any alcohol or drug abuse patient.[facility]In the event this information is protected by the Federal Confidentiality of Alcohol and Drug Abuse Patient Records regulations: The Federal rules restrict any use of the information to criminally investigate or prosecute any alcohol or drug abuse patient.[facility]In the event this information is protected by the Federal Confidentiality of Alcohol and Drug Abuse Patient Records regulations: The Federal rules restrict any use of the information to criminally investigate or prosecute any alcohol or drug abuse patient.[facility]In the event this information is protected by the Federal Confidentiality of Alcohol and Drug Abuse Patient Records regulations: The Federal rules restrict any use of the information to criminally investigate or prosecute any alcohol or drug abuse patient.[facility]In the event this information is protected by the Federal Confidentiality of Alcohol and Drug Abuse Patient Records regulations: The Federal rules restrict any use of the information to criminally investigate or prosecute any alcohol or drug abuse patient.[facility]In the event this information is protected by the Federal Confidentiality of Alcohol and Drug Abuse Patient Records regulations: The Federal rules restrict any use of the information to criminally investigate or prosecute any alcohol or drug abuse patient.[facility]In the event this information is protected by the Federal Confidentiality of Alcohol and Drug Abuse Patient Records regulations: The Federal rules restrict any use of the information to criminally investigate or prosecute any alcohol or drug abuse patient.[facility]In the event this information is protected by the Federal Confidentiality of Alcohol and Drug Abuse Patient Records regulations: The Federal rules restrict any use of the information to criminally investigate or prosecute any alcohol or drug abuse patient.[facility]In the event this information is protected by the Federal Confidentiality of Alcohol and Drug Abuse Patient Records regulations: The Federal rules restrict any use of the information to criminally investigate or prosecute any alcohol or drug abuse patient.[facility]In the event this information is protected by the Federal Confidentiality of Alcohol and Drug Abuse Patient Records regulations: The Federal rules restrict any use of the information to criminally investigate or prosecute any alcohol or drug abuse patient.[facility]In the event this information is protected by the Federal Confidentiality of Alcohol and Drug Abuse Patient Records regulations: The Federal rules restrict any use of the information to criminally investigate or prosecute any alcohol or drug abuse patient.[facility]In the event this information is protected by the Federal Confidentiality of Alcohol and Drug Abuse Patient Records regulations: The Federal rules restrict any use of the information to criminally investigate or prosecute any alcohol or drug abuse patient.[facility] HospitalIn the event this information is protected by the Federal Confidentiality of Alcohol and Drug Abuse Patient Records regulations: The Federal rules restrict any use of the information to criminally investigate or prosecute any alcohol or drug abuse patient.[facility] HospitalIn the event this information is protected by the Federal Confidentiality of Alcohol and Drug Abuse Patient Records regulations: The Federal rules restrict any use of the information to criminally investigate or prosecute any alcohol or drug abuse patient.[facility] HospitalIn the event this information is protected by the Federal Confidentiality of Alcohol and Drug Abuse Patient Records regulations: The Federal rules restrict any use of the information to criminally investigate or prosecute any alcohol or drug abuse patient.[facility] HospitalIn the event this information is protected by the Federal Confidentiality of Alcohol and Drug Abuse Patient Records regulations: The Federal rules restrict any use of the information to criminally investigate or prosecute any alcohol or drug abuse patient.[facility] HospitalIn the event this information is protected by the Federal Confidentiality of Alcohol and Drug Abuse Patient Records regulations: The Federal rules restrict any use of the information to criminally investigate or prosecute any alcohol or drug abuse patient.[facility] HospitalIn the event this information is protected by the Federal Confidentiality of Alcohol and Drug Abuse Patient Records regulations: The Federal rules restrict any use of the information to criminally investigate or prosecute any alcohol or drug abuse patient.[facility] HospitalIn the event this information is protected by the Federal Confidentiality of Alcohol and Drug Abuse Patient Records regulations: The Federal rules restrict any use of the information to criminally investigate or prosecute any alcohol or drug abuse patient.[facility] HospitalIn the event this information is protected by the Federal Confidentiality of Alcohol and Drug Abuse Patient Records regulations: The Federal rules restrict any use of the information to criminally investigate or prosecute any alcohol or drug abuse patient.[facility] HospitalIn the event this information is protected by the Federal Confidentiality of Alcohol and Drug Abuse Patient Records regulations: The Federal rules restrict any use of the information to criminally investigate or prosecute any alcohol or drug abuse patient.[facility] HospitalIn the event this information is protected by the Federal Confidentiality of Alcohol and Drug Abuse Patient Records regulations: The Federal rules restrict any use of the information to criminally investigate or prosecute any alcohol or drug abuse patient.[facility] HospitalIn the event this information is protected by the Federal Confidentiality of Alcohol and Drug Abuse Patient Records regulations: The Federal rules restrict any use of the information to criminally investigate or prosecute any alcohol or drug abuse patient.[facility] HospitalIn the event this information is protected by the Federal Confidentiality of Alcohol and Drug Abuse Patient Records regulations: The Federal rules restrict any use of the information to criminally investigate or prosecute any alcohol or drug abuse patient.[facility] Reason for Visit (unrecogniz ed section and content) Reason Comments Infusion Specialty Diagnoses / Procedures Referred By Contac t Referred To Contact Diagnoses Rheumatoid arthritis involving multiple sites, unspecified whether rheumatoid factor present (HCC) Rheumatoid arthritis involving multiple sites with positive rheumatoid factor (HCC) Procedures ABATACEPT INJECTION Jennifer Arias MD [address] [place] [address] [facility] [address] [place] [address] Referral ID Status Reason Start Date Expiration Date V isits Requested Visits Authorized [id number] Authorized 04/11/2023 09/06/2023 12 6 Specialty Diagnoses / Procedures Referred By Contac t Referred To Contact HEMONC INFUSION Diagnoses Other specified rheumatoid arthritis, multiple sites Procedures INJECTION, ZOLEDRONIC ACID, 1 MG Reclast Jennifer Arias MD [address] [place] [address] Andrew Treat [facility] [address] [place] [address] Referral ID Status Reason Start Date Expiration Date V isits Requested Visits Authorized [id number] Authorized 01/18/2021 01/03/2024 1 14 Reason Comments Orders Specialty Diagnoses / Procedures Referred By Contac t Referred To Contact HEMONC INFUSION Diagnoses Other specified rheumatoid arthritis, multiple sites Procedures Jennifer Valderrama MD [address] [place] [address] Andrew [facility] [address] [place] [address] Referral ID Status Reason Start Date Expiration Date Visits Requested Visits Authorized [id number] Authorized Patient Cleared INN/SMCP Payor Auth Obtained 08/17/2021 08/16/2022 99 99 Reason Onset Date Comments Refill Request 11/19/2021 Reason Onset Date Comments Vomiting 04/19/2021 Specialty Diagnoses / Procedures Referred By Contac t Referred To Contact HEMONC INFUSION Diagnoses Other specified rheumatoid arthritis, multiple sites Procedures Jennifer Valderrama MD [address] [place] [address] Andrew [facility] [address] [place] [address] Referral ID Status Reason Start Date Expiration Date Visits Requested Visits Authorized [id number] Pending Review Patient Cleared INN/SMCP Payor Auth Obtained 08/17/2021 08/16/2022 99 99 Referral ID Status Reason Start Date Expiration Date Visits Requested Visits Authorized [id number] Authorized Patient Cleared INN/SMCP Payor Auth Obtained 08/17/2021 08/16/2022 12 99 Reason Comments APPROVED Reclast APPROVED [id number] 01.25.2022 - 01.25.2023 per [facility] medicare Portal Reason Onset Date Comments Refill Request 01/08/2022 Reason Comments Refill Request Reason Onset Date Comments Refill Request 01/18/2022 Reason Comments Rheumatoid Arthritis Osteoporosis Specialty Diagnoses / Procedures Referred By Contac t Referred To Contact Rheumatology / RHEUMATOLOGY Diagnoses RA/Junie sarah January Procedures OFFICE/OUTPATIENT ESTABLISHED MOD MDM 30-39 MIN VIDEO SPEC EST Jennifer Arias MD [address] [place] [address] Sarah Pearson PA-C [address] [place] [address] Referral ID Status Reason Start Date Expiration Date Visits Re quested Visits Authorized [id number] Closed 01/30/2022 07/28/2022 1 1 Reason Comments Injections Dale Reason Comments Follow Up Reason Comments Future Appointment Dale Reason Comments Appointment Reason Comments Future Appointment Referral ID Status Reason Start Date Expiration Date Visits Requested Visits Authorized [id number] Pending Review Patient Cleared INN/SMCP Payor Auth [...] fracture Reason Comments APPROVED Orencia APPROVED [id number] 09.06.22 - 09.06.23 [facility] Medicare Portal Reason Onset Date Comments Refill Request 10/31/2022 Specialty Diagnoses / Procedures Referred By Contac t Referred To Contact HEMON INFUSION Diagnoses Other specified rheumatoid arthritis, multiple sites Procedures ABATACEPT INJECTION DARRENIA Jennifer Gomez MD [address] [facility] [address] [place] [address] [facility] [address] [place] [address] Referral ID Status Reason Start Date Expiration Date Visits Requested Visits Authorized [id number] Authorized Patient Cleared INN/SMCP Payor Auth Obtained Financial Clearance Not Required 08/17/2021 09/06/2023 12 99 Reason Onset Date Comments Refill Request 12/24/2022 Reason Comments Patient Question Reason Comments PRECERT NOT REQUIRED Zoledronic Acid 5mg PRECERT NOT REQUIRED [id number] 01.02.23 - 01.03.24 for 1 visit [facility] Dual/Portal Reason Comments Osteoporosis Reason Comments Radio Gen RMP Reason Comments Medication Preauthorization Orencia- Bat h Pending [id number] [facility]/Portal Specialty Diagnoses / Procedures Referred By Contac t Referred To Contact Diagnoses Rheumatoid arthritis involving multiple sites, unspecified whether rheumatoid factor present (HCC) Rheumatoid arthritis involving multiple sites with positive rheumatoid factor (HCC) Procedures ABATACEPT INJECTION ABATACEPT INJECTION Jennifer Arias MD [address] [facility] [address] [place] [address] Andrew Treat [address] [place] [address] Referral ID Status Reason Start Date Expiration Date V isits Requested Visits Authorized [id number] Authorized 04/11/2023 09/16/2024 12 17 Referral ID Status Reason Start Date Expiration Date Visits Re quested Visits Authorized [id number] Closed 04/11/2023 09/16/2024 12 17 Reason Comments Joint Pain Osteoporosis BMD on 07/10/2022 Specialty Diagnoses / Procedures Referred By Contac t Referred To Contact Diagnoses Rheumatoid arthritis involving multiple sites with positive rheumatoid factor (HCC) Procedures ABATACEPT INJECTION Tracy Velez PA-C [address] [place] [address] 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, U09.9] Procedures XR CHEST Selene Pierre MD [address] [place] [address] Radio [facility] [address] [place] [address] Referral ID Status Reason Start Date Expiration Date Visits Re quested Visits Authorized [id number] Closed 05/01/2021 07/28/2021 1 1 Reason Comments Results Reason Comments New Patient Specialty Diagnoses / Procedures Referred By Contac t Referred To Contact Hematology Diagnoses Iron deficiency anemia, unspecified iron deficiency anemia type Procedures CONSULT TO HEMATOLOGY OFFICE/OUTPATIENT NEW HIGH MDM 60 MINUTES Sarah Pearson PA-C [address] [place] [address] Referral ID Status Reason Start Date Expiration Date V isits Requested Visits Authorized [id number] Closed PCP Requested Referral 05/29/2024 08/27/2024 1 1 Reason Comments Non-Chemotherapy Treatment Specialty Diagnoses / Procedures Referred By Contac t Referred To Contact Diagnoses Rheumatoid arthritis involving multiple sites with positive rheumatoid factor (HCC) Procedures ABATACEPT INJECTION Tracy Velez PA-C [address] [place] [address] Andrew [facility] [address] [place] [address] Referral ID Status Reason Start Date Expiration Date Visits Requested Visits Authorized [id number] Authorized Patient Cleared - Admin/Chairm an/Director advise to proceed or did not respond 11/11/2023 06/16/2025 19 19 Specialty Diagnoses / Procedures Referred By Contac t Referred To Contact Diagnoses Iron 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 blood loss Iron malabsorption Procedures IRON SUCROSE INJECTION PER 1 MG Josh Bennett, DO [address] [place] [address] Andrew [facility] [address] [place] [address] Referral ID Status Reason Start Date Expiration Date V isits Requested Visits Authorized [id number] Authorized 06/15/2024 06/18/2025 10 10 Specialty Diagnoses / Procedures Referred By Contac t Referred To Contact Diagnoses Iron 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 blood loss Iron malabsorption Procedures IRON SUCROSE INJECTION PER 1 MG Josh Bennett, DO [address] [place] [address] Andrew [facility] [address] [place] [address] Reason Comments Rectal Problem Hemorrhoids and yeas [...] 60 MINUTES Josh Bennett DO [address] [facility] [address] Phone: tel: fax: Referral ID Status Reason Start Date Expiration Date V isits Requested Visits Authorized [id number] Closed PCP Requested Referral 09/15/2024 09/15/2025 [address] Specialty Diagnoses / Procedures Referred By Contac t Referred To Contact CT IMAGING Diagnoses Anal cancer (HCC) Procedures CT CHEST W IVCON DIAGNOSTIC COMPUTED TOMOGRAPHY THORAX W/CONTRAST Josh Bennett DO [address] [facility] [address] Phone: tel: fax: [place] [address] Referral ID Status Reason Start Date Expiration Date V isits Requested Visits Authorized [id number] Closed Auto-Generate d Referral 09/16/2024 10/16/2025 1 1 Reason Comments UTI Low back pain, frequ ency, lower abd pressure, nausea x1 week Reason Comments First Time Treatment Education 5FU/Mitom ycin Reason Comments appointment change Reason Comments Rheumatoid Arthritis Reason Comments Well Woman Specialty Diagnoses / Procedures Referred By Contac t Referred To Contact Gynecology Diagnoses Anal cancer (HCC) Procedures CONSULT TO GYNECOLOGY OFFICE/OUTPATIENT [facility] 60 MINUTES Josh Bennett, DO [address] [place] [address] Phone: tel: fax: Referral ID Status Reason Start Date Expiration Date V isits Requested Visits Authorized [id number] Closed PCP Requested Referral Auto-Generated Referral 09/15/2024 09/15/2025 1 1 Reason Onset Date Comments Simulation Request Form 09/28/2024 Reason Comments Chemotherapy Treatment Specialty Diagnoses / Procedures Referred By Contac t Referred To Contact Diagnoses Anal cancer (HCC) Procedures FLUOROURACIL INJECTION MITOMYCIN 5 MG INJ Josh Bennett, DO [address] [place] [address] Phone: tel: fax: Josh Bennett, DO [address] [facility] [place] [address] Phone: tel: fax: Referral ID Status Reason Start Date Expiration Date V isits Requested Visits Authorized [id number] Authorized 09/21/2024 09/21/2025 99 99 Reason Comments Radiotherapy On-treatment Visit Reason Comments Returned Goods Inspector - Other C1D1 Post Treat ment Call (5FU/Mitomycin) Reason Comments Established Patient Reason Comments Returned Goods Inspector - Other Follow-up Reason Comments CADD Pump [...] ACID, 1 MG Jennifer Arias MD [address] [address] Phone: tel: fax: Jennifer Arias MD [address] [place] [address] Phone: tel: fax: Referral ID Status Reason Start Date Expiration Date V isits Requested Visits Authorized [id number] Authorized 01/05/2025 01/05/2026 1 1 Reason Onset Date Comments Refill Request 01/13/2025 Reason Onset Date Comments Refill Request 02/03/2025 Specialty Diagnoses / Procedures Referred By Contac t Referred To Contact Diagnoses Other osteoporosis without current pathological fracture Rheumatoid arthritis involving multiple sites with positive rheumatoid factor (HCC) Procedures ABATACEPT INJECTION Jennifer Arias MD [address] [address] Phone: tel: fax: Jennifer Arias MD [address] [place] [address] Phone: tel: fax: Referral ID Status Reason Start Date Expiration Date V isits Requested Visits Authorized [id number] Authorized 06/16/2024 01/15/2026 17 17 Reason Comments Established Patient Reason Comments AVS 03/19 Care Teams (unrecognized sec tion and content) Splitter Machine Relationship Specialty Start Date End Date Selene Pierre MD [address] [place] [address] PCP - General Internal Medicine 06/03/14 Ismael Kidd (Rn)(Hist), RN Specialty Returned Goods Inspector Hematology/Oncology 08/30/17 Quin Nolan, DO [address] [place], [place] [address] Hospice Physician Peripheral Vascular 01/26/19 Jennifer Arias MD [address] [place], [place] [address] Physician Internal Medicine 02/11/19 Ronit Rahman, DO [address] [place] [address] Physician Cardiology 02/11/19 Kj Rowe MD [address] [place] [address] Physician Pulmonary and Critical Care Medicine 04/29/19 JosiahRonit abdul, DO [address] [place] [address] Primary Staff Physician Cardiology 01/12/20 Splitter Machine Relationship Specialty Start Date End Date Selene Pierre MD [address] [place], [place] [id number] PCP - General Internal Medicine 06/03/14 Ismael Kidd (Rn)(Hist), RN Specialty Returned Goods Inspector Hematology/Oncology 08/30/17 Quin Nolan, DO [address] [place], [place] [address] Hospice Physician Peripheral Vascular 01/26/19 Jennifer Arias MD [address] [place], [place] [address] Physician Internal Medicine 02/11/19 Ronit Rahman, DO [address] [place] [address] Physician Cardiology 02/11/19 Kj Rowe MD [address] [facility] [place] [place] [address] Physician Pulmonary and Critical Care Medicine 04/29/19 Ronit Rahman, DO [address] [place] [address] Primary Staff Physician Cardiology 01/12/20 Splitter Machine Relationship Specialty Start Date End Date Selene Pierre MD [address] [place] [address] PCP - General Internal Medicine 06/03/14 Ismael Kidd (Rn)(Hist), RN Specialty Returned Goods Inspector Hematology/Oncology 08/30/17 Quin Nolan, DO [address] [place], [place] [address] Hospice Physician Peripheral Vascular 01/26/19 Jennifer Arias MD [address] [address] Physician Internal Medicine 02/11/19 Ronit Rahman, DO [address] [place] [address] Physician Cardiology 02/11/19 Kj Rowe MD [address] [place] [address] Physician Pulmonary and Critical Care Medicine 04/29/19 Ronit Rahman DO [address] [place] [address] Primary Staff Physician Cardiology 01/12/20 Splitter Machine Relationship Specialty Start Date End Date Seleen Pierre MD [address] [place] [address] PCP - General Internal Medicine 06/03/14 Ismael Kidd (Rn)(Hist), RN Specialty Returned Goods Inspector Hematology/Oncology 08/30/17 Quin Nolan, DO [address] [place], [place] [address] Hospice Physician Peripheral Vascular 01/26/19 Jennifer Arias MD [address] [place], [place] [address] Physician Internal Medicine 02/11/19 Ronit Rahman DO [address] [place] [address] Physician Cardiology 02/11/19 Kj Rowe MD [address] [place], [place] 307841 Physician Pulmonary and Critical Care Medicine 04/29/19 Ronit Rahman DO [address] [place] [address] Primary Staff Physician Cardiology 01/12/20 Splitter Machine Relationship Specialty Start Date End Date Selene Pierre MD [address] [place], [place] [address]01 PCP - General Internal Medicine 06/03/14 Ismael Kidd (Rn)(Hist), RN Specialty Returned Goods Inspector Hematology/Oncology 08/30/17 Quin Nolan, DO [address] [place], [place] [address] Hospice Physician Peripheral Vascular 01/26/19 Jennifer Arias MD [address] [facility] [address] [place], [place] [address] Physician Internal Medicine 02/11/19 Ronit Rahman DO [address] [place] [address] Physician Cardiology 02/11/19 Kj Rowe MD [address] [place], [place] [address]13[address] Physician Pulmonary and Critical Care Medicine 04/29/19 Ronit Rahman DO [address] [place] [address] Primary Staff Physician Cardiology 01/12/20 Splitter Machine Relationship Specialty Start Date End Date Selene Pierre MD [address] [place], [place] 793241 PCP - General Internal Medicine 06/03/14 Ismael Kidd (Rn)(Hist), RN Specialty Returned Goods Inspector Hematology/Oncology 08/30/17 Quin Nolan, DO [address] [place] [address] Hospice Physician Peripheral Vascular 01/26/19 Jennifer Arias MD [address] [place], [place] [address] Physician Internal Medicine 02/11/19 Ronit Rahman, DO [address] [place] [address] Physician Cardiology 02/11/19 Kj Rowe MD [address] [place], [place] [address] Physician Pulmonary and Critical Care Medicine 04/29/19 Ronit Rahman, DO [address] [place] [address] Primary Staff Physician Cardiology 01/12/20 Splitter Machine Relationship Specialty Start Date End Date Selene Pierre MD [address] [place] [address] PCP - General Internal Medicine 06/03/14 Ismael Kidd (Rn)(Hist), RN Specialty Returned Goods Inspector Hematology/Oncology 08/30/17 Quin Nolan, DO [address] [place], [place] [address] Hospice Physician Peripheral Vascular 01/26/19 Jennifer Arias MD [address] [place], [place] [address] Physician Internal Medicine 02/11/19 Ronit Rahman DO [address] [place] [address] Physician Cardiology 02/11/19 Kj Rowe MD [address] [place], [place] [address]3081 Physician Pulmonary and Critical Care Medicine 04/29/19 Ronit Rahman DO [address] [place] [address] Primary Staff Physician Cardiology 01/12/20 Splitter Machine Relationship Specialty Start Date End Date Selene Pierre MD [address] [place], [place] [address] PCP - General Internal Medicine 06/03/14 Ismael Kidd (Rn)(Hist), RN Specialty Returned Goods Inspector Hematology/Oncology 08/30/17 Quin Nolan, DO [address] [place], [place] [address] Hospice Physician Peripheral Vascular 01/26/19 Jennifer Arias MD [address] [address] Physician Internal Medicine 02/11/19 Ronit Rahman DO [address] [place] [address] Physician Cardiology 02/11/19 Kj Rowe MD [address] [place], [place] 455[address] Physician Pulmonary and Critical Care Medicine 04/29/19 Ronit Rahman DO [address] [place] [address] Primary Staff Physician Cardiology 01/12/20 Splitter Machine Relationship Specialty Start Date End Date Selene Pierre MD [address] [place], [place] 490110 [phone] PCP - General Internal Medicine 06/03/14 Ismael Kidd (Rn)(Hist), RN Specialty Returned Goods Inspector Hematology/Oncology 08/30/17 Quin Nolan, DO [address] [place], [place] [address] Hospice Physician Peripheral Vascular 01/26/19 Jennifer Arias MD [address] [place], [place] [address] Physician Internal Medicine 02/11/19 Ronit Rahman, DO [address] [place] [address] Physician Cardiology 02/11/19 Kj Rowe MD [address] [place] [address] Physician Pulmonary and Critical Care Medicine 04/29/19 Ronit Rahman, DO [address] [place] [address] Primary Staff Physician Cardiology 01/12/20 Splitter Machine Relationship Specialty Start Date End Date Selene Pierre MD [address] [place], [place] [address] PCP - General Internal Medicine 06/03/14 Ismael Kidd (Rn)(Hist), RN Specialty Returned Goods Inspector Hematology/Oncology 08/30/17 Quin Nolan, DO [address] [place] [address] Hospice Physician Peripheral Vascular 01/26/19 Jennifer Arias MD [address] [place], [place] [address] Physician Internal Medicine 02/11/19 Ronit Rahman, DO [address] [place] [address] Physician Cardiology 02/11/19 Kj Rowe MD [address] [place] [address] Physician Pulmonary and Critical Care Medicine 04/29/19 Ronit Rahman, DO [address] [place] [address] Primary Staff Physician Cardiology 01/12/20 Splitter Machine Relationship Specialty Start Date End Date Selene Pierre MD [address] [place] [address] PCP - General Internal Medicine 06/03/14 Ismael Kidd (Rn)(Hist), RN Specialty Returned Goods Inspector Hematology/Oncology 08/30/17 Quin Nolan, DO [address] [place] [address] Hospice Physician Peripheral Vascular 01/26/19 Jennifer Arias MD [address] [address] Physician Internal Medicine 02/11/19 Ronit Rahman, DO [address] [place] [address] Physician Cardiology 02/11/19 Kj Rowe MD [address] [place] [address] Physician Pulmonary and Critical Care Medicine 04/29/19 Ronit Rahman DO [address] [place] [address] Primary Staff Physician Cardiology 01/12/20 Splitter Machine Relationship Specialty Start Date End Date Selene Pierre MD [address] [place] [address] PCP - General Internal Medicine 06/03/14 Ismael Kidd (Rn)(Hist), RN Specialty Returned Goods Inspector Hematology/Oncology 08/30/17 Quin Nolan, DO [address] [place] [address] Hospice Physician Peripheral Vascular 01/26/19 Jennifer Arias MD [address] [place], [place] [address] Physician Internal Medicine 02/11/19 Ronit Rahman, DO [address] [place] [address] Physician Cardiology 02/11/19 Kj Rowe MD [address] [facility] [place] [place] [address] Physician Pulmonary and Critical Care Medicine 04/29/19 Ronit Rahman DO [address] [place] [address] Primary Staff Physician Cardiology 01/12/20 Splitter Machine Relationship Specialty Start Date End Date Selene Pierre MD [address] [place], [place] [address]48[address] PCP - General Internal Medicine 06/03/14 Ismael Kidd (Rn)(Hist), RN Specialty Returned Goods Inspector Hematology/Oncology 08/30/17 Quin Nolan, DO [address] [place], [place] [address] Hospice Physician Peripheral Vascular 01/26/19 Jennifer Arias MD [address] [facility] [address] [place], [place] [address] Physician Internal Medicine 02/11/19 Ronit Rahman DO [address] [place] [address] Physician Cardiology 02/11/19 Kj Rowe MD [address] [facility] [place] [place] [address] Physician Pulmonary and Critical Care Medicine 04/29/19 Ronit Rahman DO [address] [place] [address] Primary Staff Physician Cardiology 01/12/20 Splitter Machine Relationship Specialty Start Date End Date Selene Pierre MD [address] [place] [address] PCP - General Internal Medicine 06/03/14 Ismael Kidd (Rn)(Hist), RN Specialty Returned Goods Inspector Hematology/Oncology 08/30/17 Quin Nolan, DO [address] [place] [address] Hospice Physician Peripheral Vascular 01/26/19 Jennifer Arias MD [address] [place], [place] [address]73 Physician Internal Medicine 02/11/19 Ronit Rahman, DO [address] [place] [address] Physician Cardiology 02/11/19 Kj Rowe MD [address] [place] [address] Physician Pulmonary and Critical Care Medicine 04/29/19 Ronit Rahman, DO [address] [place] [address] Primary Staff Physician Cardiology 01/12/20 Splitter Machine Relationship Specialty Start Date End Date Selene Pierre MD [address] [place] [address] PCP - General Internal Medicine 06/03/14 Ismael Kidd (Rn)(Hist), RN Specialty Returned Goods Inspector Hematology/Oncology 08/30/17 Quin Nolan, DO [address] [place], [place] [address]881 Hospice Physician Peripheral Vascular 01/26/19 Jennifer Arias MD [address] [place], [place] [address] Physician Internal Medicine 02/11/19 Ronit Rahman DO [address] [place] [address] Physician Cardiology 02/11/19 Kj Rowe MD [address] [facility] [place] [place] [address] Physician Pulmonary and Critical Care Medicine 04/29/19 Ronit Rahman DO [address] [place] [address] Primary Staff Physician Cardiology 01/12/20 Splitter Machine Relationship Specialty Start Date End Date Selene Pierre MD [address] [place], [place] [address]51 PCP - General Internal Medicine 06/03/14 Ismael Kidd (Rn)(Hist), RN Specialty Returned Goods Inspector Hematology/Oncology 08/30/17 Quin Nolan DO [address] [place], [place] [address]331 Hospice Physician Peripheral Vascular 01/26/19 Jennifer Arias MD [address] [address] Physician Internal Medicine 02/11/19 Ronit Rahman DO [address] [place] [address] Physician Cardiology 02/11/19 Kj Rowe MD [address] [facility] [place], [place] 86[address] Physician Pulmonary and Critical Care Medicine 04/29/19 Ronit Rahman DO [address] [place] [address] Primary Staff Physician Cardiology 01/12/20 Splitter Machine Relationship Specialty Start Date End Date Selene Pierre MD [address] [place], [place] 214158 [phone] PCP - General Internal Medicine 06/03/14 Ismael Kidd (Rn)(Hist), RN Specialty Returned Goods Inspector Hematology/Oncology 08/30/17 Quin Nolan, DO [address] [place], [place] [address] Hospice Physician Peripheral Vascular 01/26/19 Jennifer Arias MD [address] [place], [place] [address]13 Physician Internal Medicine 02/11/19 Ronit Rahman, DO [address] [place] [address] Physician Cardiology 02/11/19 Kj Rowe MD [address] [place] [address] Physician Pulmonary and Critical Care Medicine 04/29/19 Ronit Rahman, DO [address] [place] [address] Primary Staff Physician Cardiology 01/12/20 Splitter Machine Relationship Specialty Start Date End Date Selene Pierre MD [address] [place], [place] [address]251 PCP - General Internal Medicine 06/03/14 Ismael Kidd (Rn)(Hist), RN Specialty Returned Goods Inspector Hematology/Oncology 08/30/17 Quin Nolan, DO [address] [place] [address] Hospice Physician Peripheral Vascular 01/26/19 Jennifer Arias MD [address] [place], [place] [address]23 Physician Internal Medicine 02/11/19 Ronit Rahman, DO [address] [place] [address] Physician Cardiology 02/11/19 Kj Rowe MD [address] [place] [address] Physician Pulmonary and Critical Care Medicine 04/29/19 Ronit Rahman, DO [address] [place] [address] Primary Staff Physician Cardiology 01/12/20 Splitter Machine Relationship Specialty Start Date End Date Selene Pierre MD [address] [place] [address] PCP - General Internal Medicine 06/03/14 Ismael Kidd (Rn)(Hist), RN Specialty Returned Goods Inspector Hematology/Oncology 08/30/17 Quin Nolan, DO [address] [place] [address] Hospice Physician Peripheral Vascular 01/26/19 Jennifer Arias MD [address] [address] Physician Internal Medicine 02/11/19 Ronit Rahman, DO [address] [place] [address] Physician Cardiology 02/11/19 Kj Rowe MD [address] [place] [address] Physician Pulmonary and Critical Care Medicine 04/29/19 Ronit Rahman DO [address] [place] [address] Primary Staff Physician Cardiology 01/12/20 Splitter Machine Relationship Specialty Start Date End Date Selene Pierre MD [address] [place] [address] PCP - General Internal Medicine 06/03/14 Ismael Kidd (Rn)(Hist), RN Specialty Returned Goods Inspector Hematology/Oncology 08/30/17 Quin Nolan, DO [address] [place], [place] [address]331 Hospice Physician Peripheral Vascular 01/26/19 Jennifer Arias MD [address] [place], [place] [address]503 Physician Internal Medicine 02/11/19 Ronit Rahman DO [address] [place] [address] Physician Cardiology 02/11/19 Kj Rowe MD [address] [place], [place] 784821 Physician Pulmonary and Critical Care Medicine 04/29/19 Ronit Rahman DO [address] [place] [address] Primary Staff Physician Cardiology 01/12/20 Splitter Machine Relationship Specialty Start Date End Date Selene Pierre MD [address] [place], [place] 901171 PCP - General Internal Medicine 06/03/14 Ismael Kidd (Rn)(Hist), RN Specialty Returned Goods Inspector Hematology/Oncology 08/30/17 Quin Nolan, DO [address] [place], [place] 746141 Hospice Physician Peripheral Vascular 01/26/19 Jennifer Arias MD [address] [place], [place] [address]883 Physician Internal Medicine 02/11/19 Ronit Rahman, DO [address] [place] [address] Physician Cardiology 02/11/19 Kj Rowe MD [address] [place], [place] 25[address] Physician Pulmonary and Critical Care Medicine 04/29/19 Ronit Rahman DO [address] [place] [address] Primary Staff Physician Cardiology 01/12/20 Splitter Machine Relationship Specialty Start Date End Date Selene Pierre MD [address] [place] [address] PCP - General Internal Medicine 06/03/14 Ismael Kidd (Rn)(Hist), RN Specialty Returned Goods Inspector Hematology/Oncology 08/30/17 Quin Nolan, DO [address] [place] [address] Hospice Physician Peripheral Vascular 01/26/19 Jennifer Arias MD [address] [place], [place] 24[address]93 Physician Internal Medicine 02/11/19 Ronit Rahman, DO [address] [place] [address] Physician Cardiology 02/11/19 Kj Rowe MD [address] [place], [place] 114211 Physician Pulmonary and Critical Care Medicine 04/29/19 Ronit Rahman, DO [address] [place] [address] Primary Staff Physician Cardiology 01/12/20 Splitter Machine Relationship Specialty Start Date End Date Selene Pierre MD [address] [place] [address] PCP - General Internal Medicine 06/03/14 Ismael Kidd (Rn)(Hist), RN Specialty Returned Goods Inspector Hematology/Oncology 08/30/17 Quin Nolan, DO [address] [place], [place] 482101 Hospice Physician Peripheral Vascular 01/26/19 Jennifer Arias MD [address] [place], [place] [address] Physician Internal Medicine 02/11/19 Ronit Rahman DO [address] [place] [address] Physician Cardiology 02/11/19 Kj Rowe MD [address] [facility] [place] [address] Physician Pulmonary and Critical Care Medicine 04/29/19 Ronit Rahman DO [address] [place] [address] Primary Staff Physician Cardiology 01/12/20 Splitter Machine Relationship Specialty Start Date End Date Selene Pierre MD [address] [place] [address] PCP - General Internal Medicine 06/03/14 Ismael Kidd (Rn)(Hist), RN Specialty Returned Goods Inspector Hematology/Oncology 08/30/17 Quin Nolan, DO [address] [place] [address] Hospice Physician Peripheral Vascular 01/26/19 Jennifer Arias MD [address] [address] Physician Internal Medicine 02/11/19 Ronit Rahman DO [address] [place] [address] Physician Cardiology 02/11/19 Kj Rowe MD [address] [facility] [place] [place] [address] Physician Pulmonary and Critical Care Medicine 04/29/19 Ronit Rahman DO [address] [place] [address] Primary Staff Physician Cardiology 01/12/20 Splitter Machine Relationship Specialty Start Date End Date Selene Pierre MD [address] [place] [address] PCP - General Internal Medicine 06/03/14 Ismael Kidd (Rn)(Hist), RN Specialty Returned Goods Inspector Hematology/Oncology 08/30/17 Quin Nolan, DO [address] [facility], [place] [address]231 Hospice Physician Peripheral Vascular 01/26/19 Jennifer Arias MD [address] [place], [place] [address] Physician Internal Medicine 02/11/19 Ronit Rahman, DO [address] [place] [address] Physician Cardiology 02/11/19 Kj Rowe MD [address] [place] [address] Physician Pulmonary and Critical Care Medicine 04/29/19 Ronit Rahman, DO [address] [place] [address] Primary Staff Physician Cardiology 01/12/20 Splitter Machine Relationship Specialty Start Date End Date Selene Pierre MD [address] [facility] [place] [address] PCP - General Internal Medicine 06/03/14 Ismael Kidd (Rn)(Hist), RN Specialty Returned Goods Inspector Hematology/Oncology 08/30/17 Quin Nolan, DO [address] [place] [address] Hospice Physician Peripheral Vascular 01/26/19 Jennifer Arias MD [address] [place], [place] [address]353 Physician Internal Medicine 02/11/19 Ronit Rahman, DO [address] [place] [address] Physician Cardiology 02/11/19 Kj Rowe MD [address] [place] [address] Physician Pulmonary and Critical Care Medicine 04/29/19 Ronit Rahman, DO [address] [place] [address] Primary Staff Physician Cardiology 01/12/20 Team Status: Active Member Role Status Dates Dr. Selene Pierre MD Family Provider Active Julio Arriaga GEOLOGY ASSOCIATE, GEOLOGY ASSOCIATE-C Primary Care Provider Active Team Status: Inactive [...] Inactive Member Role Status Dates Julio Arriaga GEOLOGY ASSOCIATE, GEOLOGY ASSOCIATE-C Primary Care Provider, Referri ng Provider Active Kenya Clark PA, PA Attending Provider Active Team Status: Inactive Member Role Status Dates GIANNI CERVANTES MD Attending Provider Active Julio Arriaga GEOLOGY ASSOCIATE, GEOLOGY ASSOCIATE-C Primary Care Provider Active Splitter Machine Relationship Specialty Start Date End Date Selene Pierre MD [address] [place], [place] [address]211 PCP - General Internal Medicine 06/03/14 Ismael Kidd (Rn)(Hist), RN Specialty Returned Goods Inspector Hematology/Oncology 08/30/17 Quin Nolan, DO [address] [facility] [place] [place] [address] Hospice Physician Peripheral Vascular 01/26/19 Jennifer Arias MD [address] [address] Physician Internal Medicine 02/11/19 Ronit Rahman, [address] [place] [address] Physician Cardiology 02/11/19 Kj Rowe MD [address] [place], [place] 611271 Physician Pulmonary and Critical Care Medicine 04/29/19 Ronit Rahman, DO [address] [place], [place] [address] Primary Staff Physician Cardiology 01/12/20 Team Status: Inactive Member Role Status Dates Dr. Selene Pierre MD Referring Provider Active Jaci Warren GEOLOGY ASSOCIATE, GEOLOGY ASSOCIATE-C Attending Provider Active Julio Arriaga GEOLOGY ASSOCIATE, GEOLOGY ASSOCIATE-C Primary Care Provider Active Team Status: Inactive Member Role Status Dates Julio Arriaga GEOLOGY ASSOCIATE, GEOLOGY ASSOCIATE-C Primary Care Provider Active Jaci Warren GEOLOGY ASSOCIATE, GEOLOGY ASSOCIATE-C Attending Provider, Referalonzo g Provider Active Splitter Machine Relationship Specialty Start Date End Date Julio Arriaga, PUNCHING MACHINE OPERATOR.QUAL FIELD MANAGER [address] [place] [phone] PCP - General Internal Medicine 10/18/22 Ismael Kidd (Rn)(Hist), RN Specialty Returned Goods Inspector Hematology/Oncology 08/30/17 Quin Nolan, DO [address] [place] [address] Hospice Physician Peripheral Vascular 01/26/19 Jennifer Arias MD [address] [address] Physician Internal Medicine 02/11/19 Ronit Rahman DO [address] [place] [address] Physician Cardiology 02/11/19 Kj Rowe MD [address] [place], [place] [address] Physician Pulmonary and Critical Care Medicine 04/29/19 Ronit Rahman DO [address] [place], [place] [address] Primary Staff Physician Cardiology 01/12/20 Team Status: Active Member Role Status Dates GIANNI CERVANTES MD Referring Provider, Other Provider Active Julio Arriaga GEOLOGY ASSOCIATE, GEOLOGY ASSOCIATE-C Primary Care Provider Active Dr. Isaac Nichols MD Attending Provider Active Team Status: Active Member Role Status Dates GIANNI CERVANTES MD Attending Provider, Referring Prov ider Active Julio Arriaga GEOLOGY ASSOCIATE, GEOLOGY ASSOCIATE-C Primary Care Provider Active Team Status: Inactive Member Role Status Dates GIANNI CERVANTES MD Attending Provider, Referring Prov ider Active Julio Arriaga GEOLOGY ASSOCIATE, GEOLOGY ASSOCIATE-C Primary Care Provider Active Splitter Machine Relationship Specialty Start Date End Date Julio Arriaga, PUNCHING MACHINE OPERATOR.QUAL FIELD MANAGER [address] [place] [phone] PCP - General Internal Medicine 10/18/22 Ismael Kidd (Rn)(Hist), RN Specialty Returned Goods Inspector Hematology/Oncology 08/30/17 Quin Nolan, DO [address] [place] [address] Hospice Physician Peripheral Vascular 01/26/19 Jennifer Arias MD [address] [address] Physician Internal Medicine 02/11/[address] [facility] [place] [address] Physician Cardiology 02/11/19 Kj Rowe MD [address] [place] [address] Physician Pulmonary and Critical Care Medicine 04/29/19 JosiahRonit abdul [address] [place] [address] Primary Staff Physician Cardiology 01/12/20 Splitter Machine Relationship Specialty Start Date End Date Julio Arriaga, PUNCHING MACHINE OPERATOR.QUAL FIELD MANAGER [address] [place] [phone] PCP - General Internal Medicine 10/18/22 Ismael Kidd (Rn)(Hist), RN Specialty Returned Goods Inspector Hematology/Oncology 08/30/17 Quin Nolan, DO [address] [place], [place] [address] Hospice Physician Peripheral Vascular 01/26/19 Jennifer Arias MD [address] [place] [address] Physician Internal Medicine 02/11/19 JosiahRonit abdul, DO [address] [place] [address] Physician Cardiology 02/11/19 Kj Rowe MD [address] [facility] [place] [place] [address] Physician Pulmonary and Critical Care Medicine 04/29/19 Ronit Rahman, DO [address] [place], [place] [address] Primary Staff Physician Cardiology 01/12/20 Team Status: Active Member Role Status Dates Julio Arriaga GEOLOGY ASSOCIATE, GEOLOGY ASSOCIATE-C Primary Care Provider, Referri ng Provider Active Dr. Andrez Pitts , Attending Provider, Other Prov ider Active Team Status: Inactive Member Role Status Dates Julio Arriaga GEOLOGY ASSOCIATE, GEOLOGY ASSOCIATE-C Primary Care Provider, Referri ng Provider Active Dr. Andrez Pitts , Attending Provider Active Splitter Machine Relationship Specialty Start Date End Date Julio Arriaga, PUNCHING MACHINE OPERATOR.QUAL FIELD MANAGER [address] [place] [address] PCP - General Internal Medicine 10/18/22 Ismael Kidd (Rn)(Hist), RN Specialty Returned Goods Inspector Hematology/Oncology 08/30/17 Quin Nolan, DO [address] [facility] [place] [address] Hospice Physician Peripheral Vascular 01/26/19 Jennifer Arias MD [address] [facility] [address] [place], [place] [address] Physician Internal Medicine 02/11/19 Ronit Rahman, DO [address] [place] [address] Physician Cardiology 02/11/19 Kj Rowe MD [address] [place], [place] [address]991 Physician Pulmonary and Critical Care Medicine 04/29/19 Ronit Rahman DO [address] [place] [address] Primary Staff Physician Cardiology 01/12/20 Splitter Machine Relationship Specialty Start Date End Date Julio rAriaga, PUNCHING MACHINE OPERATOR.QUAL FIELD MANAGER [address] [place] [phone] PCP - General Internal Medicine 10/18/22 Ismael Kidd (Rn)(Hist), RN Specialty Returned Goods Inspector Hematology/Oncology 08/30/17 Quin Nolan, DO [address] [place], [place] 9[address]391 Hospice Physician Peripheral Vascular 01/26/19 Jennifer Arias MD [address] [address] Physician Internal Medicine 02/11/19 Ronit Rahman DO [address] [place] [address] Physician Cardiology 02/11/19 Kj Rowe MD [address] [place], [place] 415491 Physician Pulmonary and Critical Care Medicine 04/29/19 Ronit Rahman DO [address] [place] [address] Primary Staff Physician Cardiology 01/12/20 Team Status: Inactive Member Role Status Dates Julio Arriaga GEOLOGY ASSOCIATE, GEOLOGY ASSOCIATE-C Primary Care Provider, Referri ng Provider Active Jaci Warren GEOLOGY ASSOCIATE, GEOLOGY ASSOCIATE-C Attending Provider Active Team Status: Inactive Member Role Status Dates Julio Arriaga GEOLOGY ASSOCIATE, GEOLOGY ASSOCIATE-C Primary Care Provider, Referri ng Provider Active Pablo BENOIT, PA Attending Provider Active Team Status: Inactive Member Role Status Dates Julio Arriaga GEOLOGY ASSOCIATE, GEOLOGY ASSOCIATE-C Primary Care Provider Active Dr. Usama Sarmiento MD Attending Provider Active Team Status: Inactive Member Role Status Dates Julio Arriaga GEOLOGY ASSOCIATE, GEOLOGY ASSOCIATE-C Primary Care Provider Active Pablo BENOIT, PA Attending Provider, Referring Prov ider Active Splitter Machine Relationship Specialty Start Date End Date Julio Arriaga, PUNCHING MACHINE OPERATOR.QUAL FIELD MANAGER [address] [place] [phone] PCP - General Internal Medicine 10/18/22 Ismael Kidd (Rn)(Hist), RN Specialty Returned Goods Inspector Hematology/Oncology 08/30/17 Quin Nolan, DO [address] [place] [address] Hospice Physician Peripheral Vascular 01/26/19 Jennifer Arias MD [address] [address] Physician Internal Medicine 02/11/19 Ronit Rahman, [address] [place] [address] Physician Cardiology 02/11/19 Kj Rowe MD [address] [facility] [place] [address] Physician Pulmonary and Critical Care Medicine 04/29/19 Ronit Rahman, [address] [place] [address] Primary Staff Physician Cardiology 01/12/20 Splitter Machine Relationship Specialty Start Date End Date Julio Arriaga, PUNCHING MACHINE OPERATOR.QUAL FIELD MANAGER [address] [place] [phone] PCP - General Internal Medicine 10/18/22 Ismael Kidd (Rn)(Hist), RN Specialty Returned Goods Inspector Hematology/Oncology 08/30/17 Quin Nolan, DO [address] [facility] [place] [place] [address] Hospice Physician Peripheral Vascular 01/26/19 Jennifer Arias MD [address] [place] [address] Physician Internal Medicine 02/11/19 Ronit Rahman, DO [address] [place] [address] Physician Cardiology 02/11/19 Kj Rowe MD [address] [facility] [place] [address] Physician Pulmonary and Critical Care Medicine 04/29/19 Ronit Rahman, DO [address] [place] [address] Primary Staff Physician Cardiology 01/12/20 Splitter Machine Relationship Specialty Start Date End Date Julio Arriaga, PUNCHING MACHINE OPERATOR.QUAL FIELD MANAGER [address] [place] [phone] PCP - General Internal Medicine 10/18/22 Ismael Kidd (Rn)(Hist), RN Specialty Returned Goods Inspector Hematology/Oncology 08/30/17 Quin Nolan, DO [address] [facility] [place] [address] Hospice Physician Peripheral Vascular 01/26/19 Jennifer Arias MD [address] [facility] [address] [place], [place] [address] Physician Internal Medicine 02/11/19 Ronit Rahman, DO [address] [place] [address] Physician Cardiology 02/11/19 Kj Rowe MD [address] [place] [address] Physician Pulmonary and Critical Care Medicine 04/29/19 Ronit Rahman, DO [address] [place], [place] [id number] Primary Staff Physician Cardiology 01/12/20 Team Status: Inactive Member Role Status Dates Julio Arriaga GEOLOGY ASSOCIATE, GEOLOGY ASSOCIATE-C Primary Care Provider, Referri ng Provider Active Dr. Michael Rawls DO Attending Provider Active Team Status: Inactive Member Role Status Dates Julio Arriaga GEOLOGY ASSOCIATE, GEOLOGY ASSOCIATE-C Primary Care Provider Active Dr. Michael Rawls DO Attending Provider, Referring Provider Active Team Status: Active Member Role Status Dates Julio Arriaga GEOLOGY ASSOCIATE, GEOLOGY ASSOCIATE-C Primary Care Provider Active Dr. Michael Rawls DO Admit Provider, Attending Provider, Other Provider Active Team Status: Active Member Role Status Dates Julio Arriaga GEOLOGY ASSOCIATE, GEOLOGY ASSOCIATE-C Primary Care Provider Active Dr. Michael Rawls DO Admit Provider, Attending Provider, Referring Provider, Other Provider Active Team Status: Inactive Member Role Status Dates Julio Arriaga GEOLOGY ASSOCIATE, GEOLOGY ASSOCIATE-C Primary Care Provider Active Dr. Michael Rawls DO Admit Provider, Attending Provider, Referring Provider Active Splitter Machine Relationship Specialty Start Date End Date Julio Arriaga, PUNCHING MACHINE OPERATOR.QUAL FIELD MANAGER [address] [place] [phone] PCP - General Internal Medicine 10/18/22 Ismael Kidd (Rn)(Hist), RN Specialty Returned Goods Inspector Hematology/Oncology 08/30/17 Quin Nolan, DO [address] [facility] [address] Hospice Physician Peripheral Vascular 01/26/19 Jennifer Arias MD [address] [address] Physician Internal Medicine 02/11/19 Ronit Rahman DO [address] [place], [place] [address] Physician Cardiology 02/11/19 Kj Rowe MD [address] [facility] [place] [place] [address] Physician Pulmonary and Critical Care Medicine 04/29/19 Ronit Rahman DO [address] [place] [address] Primary Staff Physician Cardiology 01/12/20 Splitter Machine Relationship Specialty Start Date End Date Julio Arriaga, PUNCHING MACHINE OPERATOR.QUAL FIELD MANAGER [address] [place] [phone] PCP - General Internal Medicine 10/18/22 Ismael Kidd (Rn)(Hist), RN Specialty Returned Goods Inspector Hematology/Oncology 08/30/17 Quin Nolan DO [address] [place] [address] Hospice Physician Peripheral Vascular 01/26/19 Jennifer Arias MD [address] [address] Physician Internal Medicine 02/11/19 Ronit Rahman DO [address] [place] [address] Physician Cardiology 02/11/19 Kj Rowe MD [address] [place] [address] Physician Pulmonary and Critical Care Medicine 04/29/19 Ronit Rahman DO [address] [place] [address] Primary Staff Physician Cardiology 01/12/20 Splitter Machine Relationship Specialty Start Date End Date Julio Arriaga, PUNCHING MACHINE OPERATOR.QUAL FIELD MANAGER [address] [place] [phone] PCP - General Internal Medicine 10/18/22 Ismael Kidd (Rn)(Hist), RN Specialty Returned Goods Inspector Hematology/Oncology 08/30/17 Quin Nolan, DO [address] [place], [place] [address]40[address] Hospice Physician Peripheral Vascular 01/26/19 Jennifer Arias MD [address] [facility] [address] [place] [address] Physician Internal Medicine 02/11/19 Ronit Rahman DO [address] [place] [address] Physician Cardiology 02/11/19 Kj Rowe MD [address] [place], [place] 140611 Physician Pulmonary and Critical Care Medicine 04/29/19 Ronit Rahman DO [address] [place] [address] Primary Staff Physician Cardiology 01/12/20 Splitter Machine Relationship Specialty Start Date End Date Julio Arriaga, PUNCHING MACHINE OPERATOR.[facility] [address] [place] [phone] PCP - General Internal Medicine 10/18/22 Ismael Kidd (Rn)(Hist), RN Specialty Returned Goods Inspector Hematology/Oncology 08/30/17 Quin Nolan, DO [address] [place], [place] [id number] Hospice Physician Peripheral Vascular 01/26/19 Jennifer Arias MD [address] [facility] [address] [place] [address] Physician Internal Medicine 02/11/19 Ronit Rahman DO [address] [place] [address] Physician Cardiology 02/11/19 Kj Rowe MD [address] [facility] [place] [place] [address] Physician Pulmonary and Critical Care Medicine 04/29/19 Ronit Rahman DO [address] [place] [address] Primary Staff Physician Cardiology 01/12/20 Splitter Machine Relationship Specialty Start Date End Date Julio Arriaga, PUNCHING MACHINE OPERATOR.QUAL FIELD MANAGER [address] [place] [phone] PCP - General Internal Medicine 10/18/22 Ismael Kidd (Rn)(Hist), RN Specialty Returned Goods Inspector Hematology/Oncology 08/30/17 Quin Nolan DO [address] [facility] [place] [place] [address] Hospice Physician Peripheral Vascular 01/26/19 Jennifer Arias MD [address] [facility] [address] [place] [address] Physician Internal Medicine 02/11/19 Ronit Rahman DO [address] [place] [address] Physician Cardiology 02/11/19 Kj Rowe MD [address] [place], [place] [address] Physician Pulmonary and Critical Care Medicine 04/29/19 Ronit Rahman DO [address] [place] [address] Primary Staff Physician Cardiology 01/12/20 Splitter Machine Relationship Specialty Start Date End Date Julio Arriaga, PUNCHING MACHINE OPERATOR.QUAL FIELD MANAGER [address] [place] [phone] PCP - General Internal Medicine 10/18/22 Ismael Kidd (Rn)(Hist), RN Specialty Returned Goods Inspector Hematology/Oncology 08/30/17 Quin Nolan DO [address] [place], [place] [address] Hospice Physician Peripheral Vascular 01/26/19 Jennifer Arias MD [address] [place] [address] Physician Internal Medicine 02/11/19 Ronit Rahman DO [address] [place] [address] Physician Cardiology 02/11/19 Kj Rowe MD [address] [facility] [place] [place] [address] Physician Pulmonary and Critical Care Medicine 04/29/19 Ronit Rahman DO [address] [place] [address] Primary Staff Physician Cardiology 01/12/20 Splitter Machine Relationship Specialty Start Date End Date Julio Arriaga, PUNCHING MACHINE OPERATOR.QUAL FIELD MANAGER [address] [place] [phone] PCP - General Internal Medicine 10/18/22 Ismael Kidd (Rn)(Hist), RN Specialty Returned Goods Inspector Hematology/Oncology 08/30/17 Quin Nolan DO [address] [place], [place] 746151 Hospice Physician Peripheral Vascular 01/26/19 Jennifer Arias MD 4125 [facility] [address] [place], [place] 578963 Physician Internal Medicine 02/11/19 Ronit Rahman DO [address] [place], [place] [id number] Physician Cardiology 02/11/19 Kj Rowe MD [address] [place], [place] 419461 Physician Pulmonary and Critical Care Medicine 04/29/19 Ronit Rahman DO [address] [place] [address] Primary Staff Physician Cardiology 01/12/20 Splitter Machine Relationship Specialty Start Date End Date Selene Pierre MD [address] [place], [place] 311441 PCP - General Internal Medicine 06/03/14 10/17/22 Ismael Kidd (Rn)(Hist), RN Specialty Returned Goods Inspector Hematology/Oncology 08/30/17 Quin Nolan DO [address] [place], [place] 230511 Hospice Physician Peripheral Vascular 01/26/19 Jennifer Arias MD 4125 [facility] [address] [place] [address] Physician Internal Medicine 02/11/19 Ronit Rahman DO [address] [place] [address] Physician Cardiology 02/11/19 Kj Rowe MD [address] [place], [place] 135271 Physician Pulmonary and Critical Care Medicine 04/29/19 Ronit Rahman DO [address] [place] [address] Primary Staff Physician Cardiology 01/12/20 Splitter Machine Relationship Specialty Start Date End Date Selene Pierre MD [address] [place] [address] PCP - General Internal Medicine 06/03/14 10/17/22 Ismael Kidd (Rn)(Hist), RN Specialty Returned Goods Inspector Hematology/Oncology 08/30/17 Quin Nolan DO [address] [place] [address] Hospice Physician Peripheral Vascular 01/26/19 Jennifer Arias MD [address] [address] Physician Internal Medicine 02/11/19 Ronit Rahman DO [address] [place] [address] Physician Cardiology 02/11/19 Kj Rowe MD [address] [place] [address] Physician Pulmonary and Critical Care Medicine 04/29/19 Ronit Rahman DO [address] [place] [address] Primary Staff Physician Cardiology 01/12/20 Splitter Machine Relationship Specialty Start Date End Date Julio Arriaga APRN.QUAL FIELD MANAGER [address] [place] [address] PCP - General Internal Medicine 10/18/22 Ismael Kidd (Rn)(Hist), RN Specialty Returned Goods Inspector Hematology/Oncology 08/30/17 Quin Nolan DO [address] [place], [place] 664031 Hospice Physician Peripheral Vascular 01/26/19 [place] [address] [place] [address] Physician Internal Medicine 02/11/19 Ronit Rahman DO [address] [place] [address] Physician Cardiology 02/11/19 Kj Rowe MD [address] [place] [address] Physician Pulmonary and Critical Care Medicine 04/29/19 Ronit Rahman DO [address] [place] [address] Primary Staff Physician Cardiology 01/12/20 Team Status: Inactive Member Role Status Dates Julio Arriaga GEOLOGY ASSOCIATE, GEOLOGY ASSOCIATE-C Referring Provider Active Dr. Andrez Pitts DO Attending Provider Active Team Status: Inactive Member Role Status Dates Dr. Michael Rawls DO Attending Provider Active Team Status: Inactive Member Role Status Dates Julio Arriaga GEOLOGY ASSOCIATE, GEOLOGY ASSOCIATE-C Primary Care Provider Active Dr. Andrez Pitts DO Attending Provider, Referring Provider Active Splitter Machine Relationship Specialty Start Date End Date Julio Arriaga, PUNCHING MACHINE OPERATOR.QUAL FIELD MANAGER [address] [place] [phone] PCP - General Internal Medicine 10/18/22 Ismael Kidd (Rn)(Hist), RN Specialty Returned Goods Inspector Hematology/Oncology 08/30/17 Quin Nolan, DO [address] [facility] [place] [place] 73[address]01 Hospice Physician Peripheral Vascular 01/26/19 Jennifer Arias MD [address] [address] Physician Internal Medicine 02/11/19 Ronit Rahman DO [address] [place] [address] Physician Cardiology 02/11/19 Kj Rowe MD [address] [facility] [place] [place] 155941 Physician Pulmonary and Critical Care Medicine 04/29/19 Ronit Rahman DO [address] [place] [address] Primary Staff Physician Cardiology 01/12/20 Splitter Machine Relationship Specialty Start Date End Date Julio Arriaga, PUNCHING MACHINE OPERATOR.QUAL FIELD MANAGER [address] [place] [address]15[address] PCP - General Internal Medicine 10/18/22 Ismael Kidd (Rn)(Hist), RN Specialty Returned Goods Inspector Hematology/Oncology 08/30/17 Quin Nolan, DO [address] [place] [place], [place] 859441 Hospice Physician Peripheral Vascular 01/26/19 Jennifer Arias MD [address] [facility] [address] [place], [place] 357243 Physician Internal Medicine 02/11/19 oRnit Rahman DO [address] [place], [place] [id number] Physician Cardiology 02/11/19 Kj Rowe MD [address] [facility] [place] [place] 836051 Physician Pulmonary and Critical Care Medicine 04/29/19 Ronit Rahman DO [address] [place] [address] Primary Staff Physician Cardiology 01/12/20 Splitter Machine Relationship Specialty Start Date End Date Julio Arriaga, PUNCHING MACHINE OPERATOR.QUAL FIELD MANAGER [address] [place] [address] PCP - General Internal Medicine 10/18/22 Ismael Kidd (Rn)(Hist), RN Specialty Returned Goods Inspector Hematology/Oncology 08/30/17 Quin Nolan DO [address] [facility] [place], [place] 946561 Hospice Physician Peripheral Vascular 01/26/19 Jennifer Arias MD [address] [facility] [address] [place] [address] Physician Internal Medicine 02/11/19 Ronit Rahman DO [address] [place] [address] Physician Cardiology 02/11/19 Kj Rowe MD [address] [place] [address] Physician Pulmonary and Critical Care Medicine 04/29/19 Ronit Rahman DO [address] [place] [address] Primary Staff Physician Cardiology 01/12/20 Splitter Machine Relationship Specialty Start Date End Date Julio Arriaga, PUNCHING MACHINE OPERATOR.QUAL FIELD MANAGER [address] [place] [address] PCP - General Internal Medicine 10/18/22 Ismael Kidd (Rn)(Hist), RN Specialty Returned Goods Inspector Hematology/Oncology 08/30/17 Quin Nolan DO [address] [place] [address] Hospice Physician Peripheral Vascular 01/26/19 Jennifer Arias MD [address] [address] Physician Internal Medicine 02/11/19 Ronit Rahman DO [address] [place] [address] Physician Cardiology 02/11/19 Kj Rowe MD [address] [place] [address] Physician Pulmonary and Critical Care Medicine 04/29/19 Ronit Rahman DO [address] [place] [address] Primary Staff Physician Cardiology 01/12/20 Team Status: Inactive Member Role Status Dates Julio Arriaga GEOLOGY ASSOCIATE, GEOLOGY ASSOCIATE-C Primary Care Provider Active Dr. Pawel Cason MD Emergency Provider Active Splitter Machine Relationship Specialty Start Date End Date Julio Arriaga, PUNCHING MACHINE OPERATOR.QUAL FIELD MANAGER [address] [place] [phone] PCP - General Internal Medicine 10/18/22 Ismael Kidd (Rn)(Hist), RN Specialty Returned Goods Inspector Hematology/Oncology 08/30/17 Quin Nolan, DO [address] [facility] [place] [place] 087[address] Hospice Physician Peripheral Vascular 01/26/19 Jennifer Arias MD [address] [address] Physician Internal Medicine 02/11/19 Ronit Rahman DO [address] [place] [address] Physician Cardiology 02/11/19 Kj Rowe MD [address] [facility] [place] [place] 549241 Physician Pulmonary and Critical Care Medicine 04/29/19 Ronit Rahman DO [address] [place] [address] Primary Staff Physician Cardiology 01/12/20 Splitter Machine Relationship Specialty Start Date End Date Julio Arriaga, PUNCHING MACHINE OPERATOR.QUAL FIELD MANAGER [address] [place] [address] PCP - General Internal Medicine 10/18/22 Ismael Kidd (Rn)(Hist), RN Specialty Returned Goods Inspector Hematology/Oncology 08/30/17 Quin Nolan, DO [address] [place] [place], [place] 326741 Hospice Physician Peripheral Vascular 01/26/19 Jennifer Arias MD [address] [facility] [address] [place], [place] 722883 Physician Internal Medicine 02/11/19 Ronit Rahman DO [address] [place], [place] [id number] Physician Cardiology 02/11/19 Kj Rowe MD [address] [facility] [place] 282501 Physician Pulmonary and Critical Care Medicine 04/29/19 Ronit Rahman DO [address] [place] [address] Primary Staff Physician Cardiology 01/12/20 Splitter Machine Relationship Specialty Start Date End Date Julio Arriaga, PUNCHING MACHINE OPERATOR.QUAL FIELD MANAGER [address] [place] [address] PCP - General Internal Medicine 10/18/22 Ismael Kidd (Rn)(Hist), RN Specialty Returned Goods Inspector Hematology/Oncology 08/30/17 Quin Nolan DO [address] [facility] [place] [place] 870401 Hospice Physician Peripheral Vascular 01/26/19 Jennifer Arias MD [address] [facility] [address] [place] [address] Physician Internal Medicine 02/11/19 Ronit Rahman DO [address] [place] [address] Physician Cardiology 02/11/19 Kj Rowe MD [address] [place] [place], [place] 336311 Physician Pulmonary and Critical Care Medicine 04/29/19 Ronit Rahman DO [address] [place] [address] Primary Staff Physician Cardiology 01/12/20 Andrez Pitts DO [address] [facility] [address] [place], [place] [address]011 Gastroenterology 11/21/23 Splitter Machine Relationship Specialty Start Date End Date Julio Arriaga, PUNCHING MACHINE OPERATOR.QUAL FIELD MANAGER [address] [place] [phone] PCP - General Internal Medicine 10/18/22 Ismael Kidd (Rn)(Hist), RN Specialty Returned Goods Inspector Hematology/Oncology 08/30/17 Quin Nolan DO [address] [place], [place] 9[address]31 Hospice Physician Peripheral Vascular 01/26/19 Jennifer Arias MD 4125 [facility] [address] [place] [address] Physician Internal Medicine 02/11/19 Ronit Rahman DO [address] [place] [address] Physician Cardiology 02/11/19 Kj Rowe MD [address] [place] [address] Physician Pulmonary and Critical Care Medicine 04/29/19 Ronit Rahman DO [address] [place] [address] Primary Staff Physician Cardiology 01/12/20 Andrez Pitts DO 1761 [facility] [address] [place], [place] 410871 Gastroenterology 11/21/23 Splitter Machine Relationship Specialty Start Date End Date Julio Arriaga, PUNCHING MACHINE OPERATOR.QUAL FIELD MANAGER [address] [place] [address] PCP - General Internal Medicine 10/18/22 Ismael Kidd (Rn)(Hist), RN Specialty Returned Goods Inspector Hematology/Oncology 08/30/17 Quin Nolan DO [address] [place] 400[address] Hospice Physician Peripheral Vascular 01/26/19 Jennifer Arias MD 4125 [facility] [address] [place] [address] Physician Internal Medicine 02/11/19 Ronit Rahman DO [address] [place], [place] [id number] Physician Cardiology 02/11/19 Kj Rowe MD [address] [place] [address] Physician Pulmonary and Critical Care Medicine 04/29/19 Ronit Rahman DO [address] [place] [address] Primary Staff Physician Cardiology 01/12/20 Andrez Pitts DO [address]61 [facility] [address] [place], [place] 594291 Gastroenterology 11/21/23 Splitter Machine Relationship Specialty Start Date End Date Julio Arriaga, PUNCHING MACHINE OPERATOR.QUAL FIELD MANAGER [address] [place] [phone] PCP - General Internal Medicine 10/18/22 Ismael Kidd (Rn)(Hist), RN Specialty Returned Goods Inspector Hematology/Oncology 08/30/17 Quin Nolan DO [address] [place] [address] Hospice Physician Peripheral Vascular 01/26/19 Jennifer Arias MD [address] [address] Physician Internal Medicine 02/11/19 Ronit Rahman DO [address] [place], [place] [id number] Physician Cardiology 02/11/19 Kj Roew MD [address] [place] [address] Physician Pulmonary and Critical Care Medicine 04/29/19 Ronit Rahman DO [address] [place], [place] 93968256 Primary Staff Physician Cardiology 01/12/20 Andrez Pitts DO [address]61 [facility] [address] [address]9941 Gastroenterology 11/21/23 Splitter Machine Relationship Specialty Start Date End Date Julio Arriaga, PUNCHING MACHINE OPERATOR.QUAL FIELD MANAGER [address] [place] [phone] PCP - General Internal Medicine 10/18/22 Ismael Kidd (Rn)(Hist), RN Specialty Returned Goods Inspector Hematology/Oncology 08/30/17 Quin Nolan, DO [address] [place], [place] 632131 Hospice Physician Peripheral Vascular 01/26/19 [place] [address] [place] [address] Physician Internal Medicine 02/11/19 Ronit Rahman DO [address] [place], [place] [id number] Physician Cardiology 02/11/19 Kj Rowe MD [address] [facility] [place] [place] [address] Physician Pulmonary and Critical Care Medicine 04/29/19 Ronit Rahman DO [address] [place] [address] Primary Staff Physician Cardiology 01/12/20 Andrez Pitts, DO [address]61 [facility] [address] [address] Gastroenterology 11/21/23 Splitter Machine Relationship Specialty Start Date End Date Julio Arriaga, PUNCHING MACHINE OPERATOR.QUAL FIELD MANAGER [address] [place] [address]1568 PCP - General Internal Medicine 10/18/22 Ismael Kidd (Rn)(Hist), RN Specialty Returned Goods Inspector Hematology/Oncology 08/30/17 Quin Nolan, DO [address] [facility] [place] [place] [address]132[address] Hospice Physician Peripheral Vascular 01/26/19 Jennifer Arias MD [address] [facility] [address] [place], [place] [address] Physician Internal Medicine 02/11/19 Ronit Rahman DO [address] [place], [place] 78428256 Physician Cardiology 02/11/19 Kj Rowe MD [address] [place] [address] Physician Pulmonary and Critical Care Medicine 04/29/19 Ronit Rahman DO [address] [place], [place] [id number] Primary Staff Physician Cardiology 01/12/20 Andrez Pitts DO 1761 [facility] [address] [place] [address] Gastroenterology 11/21/23 Splitter Machine Relationship Specialty Start Date End Date Selene Pierre MD [address] [place] [address] PCP - General Internal Medicine 06/03/14 10/17/22 Ismael Kidd (Rn)(Hist), RN Specialty Returned Goods Inspector Hematology/Oncology 08/30/17 Quin Nolan DO [address] [place], [place] 75580691 Hospice Physician Peripheral Vascular 01/26/19 Jennifer Arias MD 4125 [facility] 209 [place], [place] 149083 Physician Internal Medicine 02/11/19 Ronit Rahman DO [address] [place], [place] 330[address]256 Physician Cardiology 02/11/19 Kj Rowe MD [address] [place], [place] 144031 Physician Pulmonary and Critical Care Medicine 04/29/19 Ronit Rahman DO [address] [place] [address] Primary Staff Physician Cardiology 01/12/20 Splitter Machine Relationship Specialty Start Date End Date Julio Arriaga, PUNCHING MACHINE OPERATOR.QUAL FIELD MANAGER [address] [place] [address]15[address] PCP - General Internal Medicine 10/18/22 Ismael Kidd (Rn)(Hist), RN Specialty Returned Goods Inspector Hematology/Oncology 08/30/17 Quin Nolan DO [address] [place] [place], [place] 557641 Hospice Physician Peripheral Vascular 01/26/19 Jennifer Arias MD [address] [address] Physician Internal Medicine 02/11/19 Ronit Rahman DO [address] [place] [address] Physician Cardiology 02/11/19 Kj Rowe MD [address] [place] [place], [place] 446921 Physician Pulmonary and Critical Care Medicine 04/29/19 Ronit Rahman DO [address] [place] [address] Primary Staff Physician Cardiology 01/12/20 Andrez Pitts DO 1761 [facility] [address] [place], [place] 643751 Gastroenterology 11/21/23 Splitter Machine Relationship Specialty Start Date End Date Julio Arriaga, PUNCHING MACHINE OPERATOR.QUAL FIELD MANAGER [address] [place] [address] PCP - General Internal Medicine 10/18/22 Ismael Kidd (Rn)(Hist), RN Specialty Returned Goods Inspector Hematology/Oncology 08/30/17 Quin Nolan DO [address] [place] [address] Hospice Physician Peripheral Vascular 01/26/19 Jennifer Arias MD [address] [address] Physician Internal Medicine 02/11/19 Ronit Rahman DO [address] [place], [place] [id number] Physician Cardiology 02/11/19 Kj Rowe MD [address] [place] [address] Physician Pulmonary and Critical Care Medicine 04/29/19 Ronit Rahman DO [address] [place] [address] Primary Staff Physician Cardiology 01/12/20 Andrez Pitts DO 1761 [facility] [address] [place] [address] Gastroenterology 11/21/23 Splitter Machine Relationship Specialty Start Date End Date Julio Arriaga, PUNCHING MACHINE OPERATOR.QUAL FIELD MANAGER [address] [place] [phone] PCP - General Internal Medicine 10/18/22 Ismael Kidd (Rn)(Hist), RN Specialty Returned Goods Inspector Hematology/Oncology 08/30/17 Quin Nolan DO [address] [place] [address] Hospice Physician Peripheral Vascular 01/26/19 Jennifer Arias MD [address] [address] Physician Internal Medicine 02/11/19 Ronit Rahman DO [address] [place], [place] [id number] Physician Cardiology 02/11/19 Kj Rowe MD [address] [place], [place] 684191 Physician Pulmonary and Critical Care Medicine 04/29/19 Ronit Rahman DO [address] [place], [place] 83538256 Primary Staff Physician Cardiology 01/12/20 Andrez Pitts DO [address] 2935[address] Gastroenterology 11/21/23 Splitter Machine Relationship Specialty Start Date End Date Julio Arriaga, PUNCHING MACHINE OPERATOR.QUAL FIELD MANAGER [address] [place] [address] PCP - General Internal Medicine 10/18/22 Ismael Kidd (Rn)(Hist), RN Specialty Returned Goods Inspector Hematology/Oncology 08/30/17 Quin Nolan, DO [address] [facility] [place] [place] 2625[address] Hospice Physician Peripheral Vascular 01/26/19 Jennifer Arias MD 4125 [facility] [address] [place] [address] Physician Internal Medicine 02/11/19 Ronit Rahman DO [address] [place] [address] Physician Cardiology 02/11/19 Kj Rowe MD [address] [facility] [address] Physician Pulmonary and Critical Care Medicine 04/29/19 Ronit Rahman DO [address] [place] [address] Primary Staff Physician Cardiology 01/12/20 Andrez Pitts, DO 1761 [facility] [address] [place], [place] 360491 Gastroenterology 11/21/23 Splitter Machine Relationship Specialty Start Date End Date Julio Arriaga, PUNCHING MACHINE OPERATOR.QUAL FIELD MANAGER [address] [place] [phone] PCP - General Internal Medicine 10/18/22 Ismael Kidd (Rn)(Hist), RN Specialty Returned Goods Inspector Hematology/Oncology 08/30/17 Quin Nolan, DO [address] [place] [address] Hospice Physician Peripheral Vascular 01/26/19 Jennifer Arias MD 4125 [facility] [address] [place] [address] Physician Internal Medicine 02/11/19 Ronit Rahman DO [address] [place], [place] [id number] Physician Cardiology 02/11/19 Kj Rowe MD [address] [place], [place] 588781 Physician Pulmonary and Critical Care Medicine 04/29/19 Ronit Rahman DO [address] [place] [address] Primary Staff Physician Cardiology 01/12/20 Andrez Pitts DO [address] [facility] [address] [place], [place] [address] Gastroenterology 11/21/23 Splitter Machine Relationship Specialty Start Date End Date Julio Arriaga, PUNCHING MACHINE OPERATOR.QUAL FIELD MANAGER [address] [place] [address] PCP - General Internal Medicine 10/18/22 Ismael Kidd (Rn)(Hist), RN Specialty Returned Goods Inspector Hematology/Oncology 08/30/17 Quin Nolan DO [address] [place], [place] 573721 Hospice Physician Peripheral Vascular 01/26/19 Jennifer Arias MD 4125 [facility] [address] [place], [place] 532763 Physician Internal Medicine 02/11/19 Ronit Rahman DO [address] [place], [place] 11430256 Physician Cardiology 02/11/19 Kj Rowe MD [address] [place], [place] 929141 Physician Pulmonary and Critical Care Medicine 04/29/19 Ronit Rahman DO [address] [place] [address] Primary Staff Physician Cardiology 01/12/20 Andrez Pitts DO [address] [address]1821 Gastroenterology 11/21/23 Splitter Machine Relationship Specialty Start Date End Date Julio Arriaga, PUNCHING MACHINE OPERATOR.QUAL FIELD MANAGER [address] [place] [phone] PCP - General Internal Medicine 10/18/22 Ismael Kidd (Rn)(Hist), RN Specialty Returned Goods Inspector Hematology/Oncology 08/30/17 Quin Nolan DO [address] [place] [address] Hospice Physician Peripheral Vascular 01/26/19 Jennifer Arias MD [address] [address] Physician Internal Medicine 02/11/19 Ronit Rahman DO [address] [place] [address] Physician Cardiology 02/11/19 Kj Rowe MD [address] [place] [address] Physician Pulmonary and Critical Care Medicine 04/29/19 Ronit Rahman DO [address] [place] [address] Primary Staff Physician Cardiology 01/12/20 Andrez Pitts DO 1761 [facility] [address] [place] [address] Gastroenterology 11/21/23 Splitter Machine Relationship Specialty Start Date End Date Julio Arriaga, PUNCHING MACHINE OPERATOR.QUAL FIELD MANAGER [address] [place] [phone] PCP - General Internal Medicine 10/18/22 Ismael Kidd (Rn)(Hist), RN Specialty Returned Goods Inspector Hematology/Oncology 08/30/17 Quin Nolan DO [address] [facility] [place] [place] [address] Hospice Physician Peripheral Vascular 01/26/19 Jennifer Arias MD 4125 [facility] [address] [place] [address] Physician Internal Medicine 02/11/19 Ronit Rahman DO [address] [place] [address] Physician Cardiology 02/11/19 Kj Rowe MD [address] [place] [address] Physician Pulmonary and Critical Care Medicine 04/29/19 Ronit Rahman DO [address] [place] [address] Primary Staff Physician Cardiology 01/12/20 Andrez Pitts DO 1761 [facility] [address] [place], [place] 435811 Gastroenterology 11/21/23 Splitter Machine Relationship Specialty Start Date End Date Julio Arriaga, PUNCHING MACHINE OPERATOR.QUAL FIELD MANAGER [address] [place] [phone] PCP - General Internal Medicine 10/18/22 Ismael Kidd (Rn)(Hist), RN Specialty Returned Goods Inspector Hematology/Oncology 08/30/17 Quin Nolan DO [address] [place] 47798691 Hospice Physician Peripheral Vascular 01/26/19 Jennifer Arias MD [address] [address] Physician Internal Medicine 02/11/19 Ronit Rahman DO [address] [place], [place] [id number] Physician Cardiology 02/11/19 Kj Rowe MD [address] [place], [place] 335041 Physician Pulmonary and Critical Care Medicine 04/29/19 Ronit Rahman DO [address] [place], [place] [id number] Primary Staff Physician Cardiology 01/12/20 Andrez Pitts DO [address] [id number] Gastroenterology 11/21/23 Splitter Machine Relationship Specialty Start Date End Date Julio Arriaga, PUNCHING MACHINE OPERATOR.QUAL FIELD MANAGER [address] [place] [phone] PCP - General Internal Medicine 10/18/22 Ismael Kidd (Rn)(Hist), RN Specialty Returned Goods Inspector Hematology/Oncology 08/30/17 Quin Nolan, DO [address] [facility] [place], [place] 725[address] Hospice Physician Peripheral Vascular 01/26/19 Jennifer Arias MD [address] [address] Physician Internal Medicine 02/11/19 Ronit Rahman DO [address] [place], [place] [id number] Physician Cardiology 02/11/19 Kj Rowe MD [address] [facility] [place], [place] 8904[address] Physician Pulmonary and Critical Care Medicine 04/29/19 Ronit Rahman DO [address] [place], [place] [id number] Primary Staff Physician Cardiology 01/12/20 Andrez Pitts, DO 1761 [facility] [address] [address]25[address] Gastroenterology 11/21/23 Splitter Machine Relationship Specialty Start Date End Date Julio Arriaga, PUNCHING MACHINE OPERATOR.QUAL FIELD MANAGER [address] [place] [address] PCP - General Internal Medicine 10/18/22 Ismael Kidd (Rn)(Hist), RN Specialty Returned Goods Inspector Hematology/Oncology 08/30/17 Quin Nolan, DO [address] [place] [place], [place] 652771 Hospice Physician Peripheral Vascular 01/26/19 Jennifer Arias MD 4125 [facility] [address] [place], [place] 320863 Physician Internal Medicine 02/11/19 Ronit Rahman DO [address] [place] [address] Physician Cardiology 02/11/19 Kj Rowe MD [address] [place], [place] 967271 Physician Pulmonary and Critical Care Medicine 04/29/19 Ronit Rahman DO [address] [place] [address] Primary Staff Physician Cardiology 01/12/20 Andrez Pitts DO 1761 [facility] [address] [place], [place] 963861 Gastroenterology 11/21/23 Splitter Machine Relationship Specialty Start Date End Date Julio Arriaga, PUNCHING MACHINE OPERATOR.QUAL FIELD MANAGER [address] [place] [phone] PCP - General Internal Medicine 10/18/22 Ismael Kidd (Rn)(Hist), RN Specialty Returned Goods Inspector Hematology/Oncology 08/30/17 Quin Nolan DO [address] [place], [place] 81556691 Hospice Physician Peripheral Vascular 01/26/19 Jennifer Arias MD 4125 [facility] 209 [place], [place] [address]83 Physician Internal Medicine 02/11/19 Ronit Rahman DO [address] [place] [address] Physician Cardiology 02/11/19 Kj oRwe MD [address] [place] [address] Physician Pulmonary and Critical Care Medicine 04/29/19 Ronit Rahman DO [address] [place] [address] Primary Staff Physician Cardiology 01/12/20 Andrez Pitts DO [address] [address] Gastroenterology 11/21/23 Splitter Machine Relationship Specialty Start Date End Date Julio Arriaga, PUNCHING MACHINE OPERATOR.QUAL FIELD MANAGER [address] [place] [phone] PCP - General Internal Medicine 10/18/22 Ismael Kidd (Rn)(Hist), RN Specialty Returned Goods Inspector Hematology/Oncology 08/30/17 Quin Nolan DO [address] [place] [address] Hospice Physician Peripheral Vascular 01/26/19 Jennifer Arias MD [address] [address] Physician Internal Medicine 02/11/19 Ronit Rahman DO [address] [place] [address] Physician Cardiology 02/11/19 09/15/24 Kj Rowe MD [address] [place] [address] Physician Pulmonary and Critical Care Medicine 04/29/19 09/15/24 Ronit Rahman DO [address] [place] [address] Primary Staff Physician Cardiology 01/12/20 09/15/24 Andrez Pitts DO [address] [address] Gastroenterology 11/21/23 Kenya Garcia MD [address] [place] [address] General Surgery 09/15/24 Sidney Joya MD [address] [place] [address] Radiation Oncology 09/16/24 [place] [address] [place] [address] [id number] Cardiology 09/16/24 Sarah Pearson PA-C [address] [place], [place] 690020 Rheumatology 09/16/24 Splitter Machine Relationship Specialty Start Date End Date Julio Arriaga, PUNCHING MACHINE OPERATOR.QUAL FIELD MANAGER [address] [place] [phone] PCP - General Internal Medicine 10/18/22 Ismael Kidd (Rn)(Hist), RN Specialty Returned Goods Inspector Hematology/Oncology 08/30/17 Quin Nolan DO [address] [place] [address] Hospice Physician Peripheral Vascular 01/26/19 Jennifer Arias MD [address] [place] [address] Physician Internal Medicine 02/11/19 Ronit Rahman DO [address] [place] [address] Physician Cardiology 02/11/19 09/15/24 Kj Rowe MD [address] [place] [place], [place] 401941 Physician Pulmonary and Critical Care Medicine 04/29/19 09/15/24 Ronit Rahman DO [address] [place] [address] Primary Staff Physician Cardiology 01/12/20 09/15/24 Andrez Pitts DO [address] [address] Gastroenterology 11/21/23 Kenya Garcia MD 1761 [facility] [place] [address] General Surgery 09/15/24 Splitter Machine Relationship Specialty Start Date End Date Julio Arriaga, PUNCHING MACHINE OPERATOR.QUAL FIELD MANAGER [address] [place] [phone] PCP - General Internal Medicine 10/18/22 Ismael Kidd (Rn)(Hist), RN Specialty Returned Goods Inspector Hematology/Oncology 08/30/17 Quin Nolan DO [address] [place] [place], [place] 305911 Hospice Physician Peripheral Vascular 01/26/19 Jennifer Arias MD [address] [facility] [address] [place], [place] 186013 Physician Internal Medicine 02/11/19 Andrez Pitts DO [address] [facility] [address] [place], [place] 649421 Gastroenterology 11/21/23 Kenya Garcia MD [address] [place] [address] General Surgery 09/15/24 Sidney Joya MD [address] [place] [address] Radiation Oncology 09/16/24 Fredi Jones MD 1261 [facility] [address] [place], [place] 548934 Cardiology 09/16/24 Sarah Pearson, PAMadayC [address] [place], [place] 366110 Rheumatology 09/16/24 Splitter Machine Relationship Specialty Start Date End Date Julio Arriaga, PUNCHING MACHINE OPERATOR.QUAL FIELD MANAGER [address] [place] [phone] PCP - General Internal Medicine 10/18/22 Ismael Kidd (Rn)(Hist), RN Specialty Returned Goods Inspector Hematology/Oncology 08/30/17 Quin Nolan DO [address] [place] [address] Hospice Physician Peripheral Vascular 01/26/19 Jennifer Arias MD 4125 [facility] [address] [place], [place] 076653 Physician Internal Medicine 02/11/19 Andrez Pitts DO [address] [facility] [address] [place], [place] 639541 Gastroenterology 11/21/23 Kenya Garcia MD [address] [place] [address] General Surgery 09/15/24 Sidney Joya MD [address] [place], [place] 045426[address] Radiation Oncology 09/16/24 Fredi Jones MD 1261 [facility] [address] [place], [place] [id number] Cardiology 09/16/24 Sarah Pearson PA-C [address] [place], [place] [id number] Rheumatology 09/16/24 Splitter Machine Relationship Specialty Start Date End Date Julio Arriaga, PUNCHING MACHINE OPERATOR.QUAL FIELD MANAGER [address] [place] [phone] PCP - General Internal Medicine 10/18/22 Ismael Kidd (Rn)(Hist), RN Specialty Returned Goods Inspector Hematology/Oncology 08/30/17 Quin Nolan DO [address] [place], [place] 69625691 Hospice Physician Peripheral Vascular 01/26/19 Jennifer Arias MD 4125 [facility] [address] [place], [place] 291593 Physician Internal Medicine 02/11/19 Andrez Pitts DO [address] [facility] [address] [place], [place] 902581 Gastroenterology 11/21/23 Kenya Garcia MD [address] [place] [address] General Surgery 09/15/24 Sidney Joya MD [address] [place] [place], [place] 810911 Radiation Oncology 09/16/24 Fredi Jones MD 1261 [facility] [address] [place], [place] 749484 Cardiology 09/16/24 Sarah Pearson PA-C [address] [place], [place] 011480 Rheumatology 09/16/24 Raul Hendrix LISW [address] [place] [address] Veterinary Assistant Technician Hematology/Oncology 09/18/24 Splitter Machine Relationship Specialty Start Date End Date Julio Arriaga, PUNCHING MACHINE OPERATOR.QUAL FIELD MANAGER [address] [place] [phone] PCP - General Internal Medicine 10/18/22 Ismael Kidd (Rn)(Hist), RN Specialty Returned Goods Inspector Hematology/Oncology 08/30/17 Quin Nolan DO [address] [place] [place], [place] 084381 Hospice Physician Peripheral Vascular 01/26/19 Jennifer Arias MD 4125 [facility] 209 [place], [place] 308943 Physician Internal Medicine 02/11/19 Andrez Pitts DO [address] [facility] [address] [place], [place] 270081 Gastroenterology 11/21/23 Kenya Garcia MD [address] [place] [address] General Surgery 09/15/24 Sidney Joya MD [address] [place], [place] 130451 Radiation Oncology 09/16/24 Fredi Jones MD 1261 [facility] [address] [place], [place] [address] Cardiology 09/16/24 Sarah Pearson PA-C [address] [place], [place] [id number] Rheumatology 09/16/24 Raul Hendrix LISW [address] [place] [address] Veterinary Assistant Technician Hematology/Oncology 09/18/24 Splitter Machine Relationship Specialty Start Date End Date Julio Arriaga, PUNCHING MACHINE OPERATOR.QUAL FIELD MANAGER [address] [place] [phone] PCP - General Internal Medicine 10/18/22 Ismael Kidd (Rn)(Hist), RN Specialty Returned Goods Inspector Hematology/Oncology 08/30/17 Quin Nolan DO [address] [place], [place] 586481 Hospice Physician Peripheral Vascular 01/26/19 Jennifer Arias MD [address] [facility] [address] [place], [place] 349043 Physician Internal Medicine 02/11/19 Andrez Pitts DO [address] [facility] [address] [place], [place] 826681 Gastroenterology 11/21/23 Kenya Garcia MD [address] [place], [place] 051691 General Surgery 09/15/24 Sidney Joya MD [address] [place], [place] 68722691 Radiation Oncology 09/16/24 Fredi Jones MD 1261 [facility] [address] [place], [place] 606726[address] Cardiology 09/16/24 Sarah Pearson PA-C [address] [place], [place] 137280 Rheumatology 09/16/24 Splitter Machine Relationship Specialty Start Date End Date Julio Arriaga, PUNCHING MACHINE OPERATOR.QUAL FIELD MANAGER [address] [place] [phone] PCP - General Internal Medicine 10/18/22 Ismael Kidd (Rn)(Hist), RN Specialty Returned Goods Inspector Hematology/Oncology 08/30/17 Quin Nolan DO [address] [place], [place] 63468691 Hospice Physician Peripheral Vascular 01/26/19 Jennifer Arias MD [address] [facility] [address] [place], [place] 130163 Physician Internal Medicine 02/11/19 Andrez Pitts DO [address] [facility] [address] [place], [place] 570371 Gastroenterology 11/21/23 Kenya Garcia MD [address] [place] [address] General Surgery 09/15/24 Sidney Joya MD [address] [place], [place] 400711 Radiation Oncology 09/16/24 Fredi Jones MD 1261 [facility] [address] [place], [place] 637154 Cardiology 09/16/24 Sarah Pearson, LIZZIE [address] [place], [place] 307080 Rheumatology 09/16/24 Raul Hendrix LISW [address] [place] [address] Veterinary Assistant Technician Hematology/Oncology 09/18/24 Splitter Machine Relationship Specialty Start Date End Date Julio Arriaga, PUNCHING MACHINE OPERATOR.QUAL FIELD MANAGER [address] [place] [phone] PCP - General Internal Medicine 10/18/22 Ismael Kidd (Rn)(Hist), RN Specialty Returned Goods Inspector Hematology/Oncology 08/30/17 Quin Nolan DO [address] [place], [place] 726631 Hospice Physician Peripheral Vascular 01/26/19 Jennifer Arias MD [address] [facility] [address] [place], [place] 862473 Physician Internal Medicine 02/11/19 Andrez Pitts DO [address] [facility] [address] [place], [place] 472731 Gastroenterology 11/21/23 Kenya Garcia MD [address] [place] [address] General Surgery 09/15/24 Sidney Joya MD [address] [place] [address] Radiation Oncology 09/16/24 Fredi Jones MD 1261 [facility] [address] [place] [address] Cardiology 09/16/24 Sarah Pearson PA-C [address] [place] [address] Rheumatology 09/16/24 Raul Hendrix LISW [address]21 [place] [address] Veterinary Assistant Technician Hematology/Oncology 09/18/24 Josh Bennett DO [address] [place], [place] 753431 Hematology/Oncology 09/25/24 Roxanne Bland RN Specialty Returned Goods Inspector Oncology 09/25/24 Splitter Machine Relationship Specialty Start Date End Date Julio Arriaga, PUNCHING MACHINE OPERATOR.QUAL FIELD MANAGER [address] [place] [phone] PCP - General Internal Medicine 10/18/22 Ismael Kidd (Rn)(Hist), RN Specialty Returned Goods Inspector Hematology/Oncology 08/30/17 Quin Nolan DO [address] [place], [place] 663261 Hospice Physician Peripheral Vascular 01/26/19 Jennifer Arias MD [address] [facility] 209 [place] [address] Physician Internal Medicine 02/11/19 Andrez Pitts DO [address] [facility] [address] [place], [place] [address]31 Gastroenterology 11/21/23 Kenya Garcia MD [address] [place] [address] General Surgery 09/15/24 Sidney Joya MD [address] [place], [place] 168871 Radiation Oncology 09/16/24 Fredi Jones MD 1261 [facility] [address] [place], [place] 567[address] Cardiology 09/16/24 Sarah Pearson PA-C [address] [place], [place] 500470 Rheumatology 09/16/24 Raul Hendrix LISW [address] [place] [address] Veterinary Assistant Technician Hematology/Oncology 09/18/24 Josh Bennett DO [address] [place], [place] 3969[address]91 Hematology/Oncology 09/25/24 Roxanne Bland RN Specialty Returned Goods Inspector Oncology 09/25/24 Splitter Machine Relationship Specialty Start Date End Date Julio Arriaga, PUNCHING MACHINE OPERATOR.QUAL FIELD MANAGER [address] [place] [phone] PCP - General Internal Medicine 10/18/22 Ismael Kidd (Rn)(Hist), RN Specialty Returned Goods Inspector Hematology/Oncology 08/30/17 Quin Nolan DO [address] [place] [address] Hospice Physician Peripheral Vascular 01/26/19 Jennifer Arias MD [address] [facility] 209 [place], [place] [address]703 Physician Internal Medicine 02/11/19 Andrez Pitts DO 1761 [facility] [address] [place], [place] 9[address]231 Gastroenterology 11/21/23 Kenya Garcia MD [address] [place] [address] General Surgery 09/15/24 Sidney Joya MD [address] [place] [address] Radiation Oncology 09/16/24 Fredi Jones MD 1261 [facility] [address] [place], [place] 581654 Cardiology 09/16/24 Sarah Pearson PA-C [address] [place], [place] 200[address] Rheumatology 09/16/24 Raul Hendrix LISW [address] [place] [address] Veterinary Assistant Technician Hematology/Oncology 09/18/24 Josh Bennett DO [address] [place] [address] Hematology/Oncology 09/25/24 Roxanne Bland, RN Specialty Returned Goods Inspector Oncology 09/25/24 Splitter Machine Relationship Specialty Start Date End Date Julio Arriaga, PUNCHING MACHINE OPERATOR.QUAL FIELD MANAGER [address] [place] [phone] PCP - General Internal Medicine 10/18/22 Ismael Kidd (Rn)(Hist), RN Specialty Returned Goods Inspector Hematology/Oncology 08/30/17 Quin Nolan DO [address] [place] [place], [place] 56[address] Hospice Physician Peripheral Vascular 01/26/19 Jennifer Arias MD 4125 [facility] 209 [place], [place] 489503 Physician Internal Medicine 02/11/19 Andrez Pitts DO [address] [facility] [address] [place] [address] Gastroenterology 11/21/23 Kenya Garcia MD [address] [place] [address] General Surgery 09/15/24 Sidney Joya MD [address] [address] Radiation Oncology 09/16/24 Fredi Jones MD 1261 [facility] [address] [place] [address] Cardiology 09/16/24 Sarah Pearson PA-C [address] [place] [address]80 Rheumatology 09/16/24 Raul Hendrix LISW [address] [place] [address] Veterinary Assistant Technician Hematology/Oncology 09/18/24 Josh Bennett DO [address] [place] [address] Hematology/Oncology 09/25/24 Roxanne Bland RN Specialty Returned Goods Inspector Oncology 09/25/24 Splitter Machine Relationship Specialty Start Date End Date Julio Arriaga, PUNCHING MACHINE OPERATOR.QUAL FIELD MANAGER [address] [place] [phone] PCP - General Internal Medicine 10/18/22 Ismael Kidd (Rn)(Hist), RN Specialty Returned Goods Inspector Hematology/Oncology 08/30/17 Quin Nolan DO [address] [place], [place] 057011 Hospice Physician Peripheral Vascular 01/26/19 Jennifer Arias MD [address] [place] [address] Physician Internal Medicine 02/11/19 Andrez Pitts DO [address] 347[address] Gastroenterology 11/21/23 Kenya Garcia MD [address] [place] [address] General Surgery 09/15/24 Sidney Joya MD [address] [place] [address] Radiation Oncology 09/16/24 Fredi Jones MD 1261 [facility] [address] [place] [address] Cardiology 09/16/24 Sarah Pearson PA-C 1365 [place] [address] Rheumatology 09/16/24 Raul Hendrix LISW [address]21 [place] [address] Veterinary Assistant Technician Hematology/Oncology 09/18/24 Josh Bennett DO [address] [place] [address] Hematology/Oncology 09/25/24 Roxanne Bland RN Specialty Returned Goods Inspector Oncology 09/25/24 Splitter Machine Relationship Specialty Start Date End Date Julio Arriaga, PUNCHING MACHINE OPERATOR.QUAL FIELD MANAGER [address] [place] [phone] PCP - General Internal Medicine 10/18/22 Ismael Kidd (Rn)(Hist), RN Specialty Returned Goods Inspector Hematology/Oncology 08/30/17 Quin Nolan DO [address] [place], [place] 514371 Hospice Physician Peripheral Vascular 01/26/19 Jennifer Arias MD [address] [facility] 209 [place] [address] Physician Internal Medicine 02/11/19 Andrez Pitts DO [address] [facility] [address] [place], [place] 567601 Gastroenterology 11/21/23 Kenya Garcia MD [address] [place], [place] 562161 General Surgery 09/15/24 Sidney Joya MD [address] [facility] 057551 Radiation Oncology 09/16/24 Fredi Jones MD 1261 [facility] [address] [place], [place] 210634 Cardiology 09/16/24 Sarah Pearson PA-C [address] [place], [place] [id number] Rheumatology 09/16/24 Raul Hendrix LISW [address] [place] [address] Veterinary Assistant Technician Hematology/Oncology 09/18/24 Josh Bennett DO [address] [place] [address] Hematology/Oncology 09/25/24 Roxanne Bland, LÓPEZ Specialty Returned Goods Inspector Oncology 09/25/24 Splitter Machine Relationship Specialty Start Date End Date Julio Arriaga, PUNCHING MACHINE OPERATOR.QUAL FIELD MANAGER [address] [place] [phone] PCP - General Internal Medicine 10/18/22 Ismael Kidd (Rn)(Hist), RN Specialty Returned Goods Inspector Hematology/Oncology 08/30/17 Quin Nolan DO [address] [place], [place] 0635[address] Hospice Physician Peripheral Vascular 01/26/19 Jennifer Arias MD [address] [facility] 209 [place], [place] 0[address]283 Physician Internal Medicine 02/11/19 Andrez Pitts DO [address] [facility] [address] [place] [address] Gastroenterology 11/21/23 Kenya Garcia MD [address] [place] [address] General Surgery 09/15/24 Sidney Joya MD [address] [place] [address] Radiation Oncology 09/16/24 Fredi Jones MD 1261 [facility] [address] [place] [address] Cardiology 09/16/24 Sarah Pearson PA-C [address] [place] [address] Rheumatology 09/16/24 Raul Hendrix LISW [address]21 [place] [address] Veterinary Assistant Technician Hematology/Oncology 09/18/24 Josh Bennett DO [address] [place] [address] Hematology/Oncology 09/25/24 Roxanne Bland RN Specialty Returned Goods Inspector Oncology 09/25/24 Splitter Machine Relationship Specialty Start Date End Date Julio Arriaga, PUNCHING MACHINE OPERATOR.QUAL FIELD MANAGER [address] [place] [phone] PCP - General Internal Medicine 10/18/22 Ismael Kidd (Rn)(Hist), RN Specialty Returned Goods Inspector Hematology/Oncology 08/30/17 Quin Nolan DO [address] [place], [place] 3776[address] Hospice Physician Peripheral Vascular 01/26/19 Jennifer Arias MD [address] [facility] 209 [place], [place] [address]483 Physician Internal Medicine 02/11/19 Andrez Pitts DO 1761 [facility] [address] [place], [place] 454671 Gastroenterology 11/21/23 Kenya Garcia MD 1761 [facility] [place] [address] General Surgery 09/15/24 Sidney Joya MD [address] [facility] [place], [place] 4100[address] Radiation Oncology 09/16/24 Fredi Jones MD 1261 [facility] [address] [place], [place] 511454 Cardiology 09/16/24 Sarah Pearson PA-C [address] [place], [place] 033840 Rheumatology 09/16/24 Raul Hendrix LISW [address] [place] [address] Veterinary Assistant Technician Hematology/Oncology 09/18/24 Josh Bennett DO [address] [place], [place] 411631 Hematology/Oncology 09/25/24 Roxanne Bland, LÓPEZ Specialty Returned Goods Inspector Oncology 09/25/24 Splitter Machine Relationship Specialty Start Date End Date Julio Arriaga, PUNCHING MACHINE OPERATOR.QUAL FIELD MANAGER [address] [place] [phone] PCP - General Internal Medicine 10/18/22 Ismael Kidd (Rn)(Hist), RN Specialty Returned Goods Inspector Hematology/Oncology 08/30/17 Quin Nolan DO [address] [place] [address] Hospice Physician Peripheral Vascular 01/26/19 Jennifer Arias MD [address] [facility] 209 [place], [place] 842923 Physician Internal Medicine 02/11/19 Andrez Pitts DO [address] [facility] [address] [place], [place] [address]1971 Gastroenterology 11/21/23 Kenya Garcia MD [address] [place] [address] General Surgery 09/15/24 Sidney Joya MD [address] [place] [address] Radiation Oncology 09/16/24 Fredi Jones MD 1261 [facility] [address] [place], [place] 974324 Cardiology 09/16/24 Sarah Pearson, PARowan [address] [place], [place] 918950 Rheumatology 09/16/24 Raul Hendrix LISW [address] [place] [address] Veterinary Assistant Technician Hematology/Oncology 09/18/24 Josh Bennett DO [address] [place] [address] Hematology/Oncology 09/25/24 Roxanne Bland, LÓPEZ Specialty Returned Goods Inspector Oncology 09/25/24 Splitter Machine Relationship Specialty Start Date End Date Julio Arriaga, PUNCHING MACHINE OPERATOR.QUAL FIELD MANAGER [address] [place] [address] PCP - General Internal Medicine 10/18/22 Ismael Kidd (Rn)(Hist), RN Specialty Returned Goods Inspector Hematology/Oncology 08/30/17 Quin Nolan DO [address] [place], [place] 692561 Hospice Physician Peripheral Vascular 01/26/19 Jennifer Arias MD [address] [facility] [address] [place], [place] 252143 Physician Internal Medicine 02/11/19 Andrez Pitts DO [address] [facility] [address] [place] [address] Gastroenterology 11/21/23 Kenya Garcia MD [address] [place] [address] General Surgery 09/15/24 Sidney Joya MD [address] [place] [address] Radiation Oncology 09/16/24 Fredi Jones MD [address] JUAN A [address] [place], [place] 347784 Cardiology 09/16/24 Sarah Pearson PA-C [address] [place], [place] 908200 Rheumatology 09/16/24 Raul Hnedrix LISW [address] [place] [address] Veterinary Assistant Technician Hematology/Oncology 09/18/24 Josh Bennett DO [address] [place] [address] Hematology/Oncology 09/25/24 Roxanne Bland RN Specialty Returned Goods Inspector Oncology 09/25/24 Splitter Machine Relationship Specialty Start Date End Date Julio Arriaga, PUNCHING MACHINE OPERATOR.QUAL FIELD MANAGER [address] [place] [phone] PCP - General Internal Medicine 10/18/22 Ismael Kidd (Rn)(Hist), RN Specialty Returned Goods Inspector Hematology/Oncology 08/30/17 Quin Nolan DO [address] [place] [address] Hospice Physician Peripheral Vascular 01/26/19 Jennifer Arias MD [address] JUAN A [address] [place], [place] 435543 Physician Internal Medicine 02/11/19 Andrez Pitts DO [address] [facility] [address] [place] [address] Gastroenterology 11/21/23 Kenya Garcia MD [address] [place] [address] General Surgery 09/15/24 Sidney Joya MD [address] [place] [address] Radiation Oncology 09/16/24 Fredi Jones MD [address] JUAN A [address] [place] [address] Cardiology 09/16/24 Sarah Pearson PA-C [address] [place], [place] 522210 Rheumatology 09/16/24 Raul Hendrix LISW [address] [place] [address] Veterinary Assistant Technician Hematology/Oncology 09/18/24 Josh Bennett DO [address] [place], [place] 113921 Hematology/Oncology 09/25/24 Roxanne Bland RN Specialty Returned Goods Inspector Oncology 09/25/24 Splitter Machine Relationship Specialty Start Date End Date Julio Arriaga, PUNCHING MACHINE OPERATOR.QUAL FIELD MANAGER 1261 [place] [phone] PCP - General Internal Medicine 10/18/22 Ismael Kidd (Rn)(Hist), RN Specialty Returned Goods Inspector Hematology/Oncology 08/30/17 Quin Nolan DO [address] [place], [place] 577961 Hospice Physician Peripheral Vascular 01/26/19 Jennifer Arias MD [address] [address] Physician Internal Medicine 02/11/19 Andrez Pitts DO [address] [place], [place] 21467691 Gastroenterology 11/21/23 Kenya Garcia MD [address] [place] [address] General Surgery 09/15/24 Sidney Joya MD [address] [place], [place] 813651 Radiation Oncology 09/16/24 Fredi Jones MD [address] [facility] [address] [place] [address] Cardiology 09/16/24 Sarah Pearson PA-C [address] [place], [place] 712550 Rheumatology 09/16/24 Raul Hendrix LISW [address] [place] [address] Veterinary Assistant Technician Hematology/Oncology 09/18/24 Josh eBnnett DO [address] [place], [place] 205431 Hematology/Oncology 09/25/24 Roxanne Bland RN Specialty Returned Goods Inspector Oncology 09/25/24 Splitter Machine Relationship Specialty Start Date End Date Julio Arriaga, PUNCHING MACHINE OPERATOR.QUAL FIELD MANAGER [address] [place] [phone] PCP - General Internal Medicine 10/18/22 Ismael Kidd (Rn)(Hist), RN Specialty Returned Goods Inspector Hematology/Oncology 08/30/17 Quin Nolan DO [address] [place], [place] [address] Hospice Physician Peripheral Vascular 01/26/19 Jennifer Arias MD [address] [facility] 209 [place], [place] 668703 Physician Internal Medicine 02/11/19 Andrez Pitts DO [address] [facility] [address] [place] [address] Gastroenterology 11/21/23 Kenya Garcia MD [address] [place] [address] General Surgery 09/15/24 Sidney Joya MD [address] [place] [address] Radiation Oncology 09/16/24 Fredi Jones MD 1261 [facility] [address] [place], [place] 303904 Cardiology 09/16/24 Sarah Pearson PA-C 1365 [place], [place] 468040 Rheumatology 09/16/24 Raul Hendrix LISW 721 [place] [address] Veterinary Assistant Technician Hematology/Oncology 09/18/24 oJsh Bennett DO [address] [place] [address] Hematology/Oncology 09/25/24 Roxanne Bland RN Specialty Returned Goods Inspector Oncology 09/25/24 Splitter Machine Relationship Specialty Start Date End Date Julio Arriaga, PUNCHING MACHINE OPERATOR.QUAL FIELD MANAGER [address] [place] [address] PCP - General Internal Medicine 10/18/22 Ismael Kidd (Rn)(Hist), RN Specialty Returned Goods Inspector Hematology/Oncology 08/30/17 Quin Nolan DO [address] [place], [place] [address] Hospice Physician Peripheral Vascular 01/26/19 Jennifer Arias MD [address] [facility] [address] [place], [place] [address] Physician Internal Medicine 02/11/19 Andrez Pitts DO [address] [facility] [address] [place], [place] [address] Gastroenterology 11/21/23 Kenya Garcia MD [address] [place] [address] General Surgery 09/15/24 Sidney Joya MD [address] [facility] [place] [address] Radiation Oncology 09/16/24 Fredi Jones MD 1261 [facility] [address] [place], [place] [address] Cardiology 09/16/24 Sarah Pearson, PAMadayC [address] [place], [place] [address] Rheumatology 09/16/24 Raul Hendrix LISW [address] [place] [address] Veterinary Assistant Technician Hematology/Oncology 09/18/24 Josh Bennett DO [address] [facility] [place] [address] Hematology/Oncology 09/25/24 Roxanne Bland, LÓPEZ Specialty Returned Goods Inspector Oncology 09/25/24 Splitter Machine Relationship Specialty Start Date End Date Julio Arriaga, PUNCHING MACHINE OPERATOR.QUAL FIELD MANAGER [address] [place] [address] PCP - General Internal Medicine 10/18/22 Ismael Kidd (Rn)(Hist), RN Specialty Returned Goods Inspector Hematology/Oncology 08/30/17 Quin Nolan DO [address] [place], [place] [address] Hospice Physician Peripheral Vascular 01/26/19 Jennifer Arias MD 4125 [facility] [address] [place], [place] [address]83 Physician Internal Medicine 02/11/19 Andrez Pitts DO [address] [facility] [address] [place], [place] [address] Gastroenterology 11/21/23 Kenya Garcia MD [address] [place] [address] General Surgery 09/15/24 Sidney Joya MD [address] [place] [address] Radiation Oncology 09/16/24 Fredi Jones MD 1261 [facility] [address] [place], [place] [address] Cardiology 09/16/24 Sarah Pearson PA-C [address] [place], [place] [address]20 Rheumatology 09/16/24 Raul Hendrxi LISW [address] [place] [address] Veterinary Assistant Technician Hematology/Oncology 09/18/24 Josh Bennett DO [address] [place] [address] Hematology/Oncology 09/25/24 Doup, Roxanne, RN Specialty Returned Goods Inspector Oncology 09/25/24 Splitter Machine Relationship Specialty Start Date End Date Julio Arriaga, PUNCHING MACHINE OPERATOR.QUAL FIELD MANAGER [address] [place] [phone] PCP - General Internal Medicine 10/18/22 Ismael Kidd (Rn)(Hist), RN Specialty Returned Goods Inspector Hematology/Oncology 08/30/17 Quin Nolan DO [address] [facility] [place] [address] Hospice Physician Peripheral Vascular 01/26/19 Jennifer Arias MD 4125 [facility] [address] [place], [place] [address]853 Physician Internal Medicine 02/11/19 Andrez Pitts DO [address] [facility] [address] [place] [address] Gastroenterology 11/21/23 Kenya Garcia MD [address] [place], [place] 113651 General Surgery 09/15/24 Sidney Joya MD [address] [place] [address] Radiation Oncology 09/16/24 Fredi Jones MD 1261 [facility] [address] [place], [place] [address] Cardiology 09/16/24 Sarah Pearson PA-C [address] [place], [place] [address] Rheumatology 09/16/24 Raul Hendrix LISW [address] [place] [address] Veterinary Assistant Technician Hematology/Oncology 09/18/24 Josh Bennett DO [address] [place] [address] Hematology/Oncology 09/25/24 Roxanne Bland, LÓPEZ Specialty Returned Goods Inspector Oncology 09/25/24 Splitter Machine Relationship Specialty Start Date End Date Julio Arriaga, PUNCHING MACHINE OPERATOR.QUAL FIELD MANAGER [address] [place] [address] PCP - General Internal Medicine 10/18/22 Ismael Kidd (Rn)(Hist), RN Specialty Returned Goods Inspector Hematology/Oncology 08/30/17 Quin Nolan DO [address] [place], [place] 2[address] Hospice Physician Peripheral Vascular 01/26/19 Jennifer Arias MD [address] [facility] [address] [place] [address] Physician Internal Medicine 02/11/19 Andrez Pitts DO [address] [facility] [address] [place] [address] Gastroenterology 11/21/23 Kenya Garcia MD [address] [place] [address] General Surgery 09/15/24 Sidney Joya MD [address] [place], [place] 932[address] Radiation Oncology 09/16/24 Fredi Jones MD 1261 [facility] [address] [place] [address] Cardiology 09/16/24 Sarah Pearson PA-C [address] [place], [place] [address]40 Rheumatology 09/16/24 Raul Hendrix LISW [address] [place] [address] Veterinary Assistant Technician Hematology/Oncology 09/18/24 Josh Bennett DO [address] [place] [address] Hematology/Oncology 09/25/24 Roxanne Bland, LÓPEZ Specialty Returned Goods Inspector Oncology 09/25/24 Splitter Machine Relationship Specialty Start Date End Date Julio Arriaga, PUNCHING MACHINE OPERATOR.QUAL FIELD MANAGER [address] [place] [phone] PCP - General Internal Medicine 10/18/22 Ismael Kidd (Rn)(Hist), RN Specialty Returned Goods Inspector Hematology/Oncology 08/30/17 Quin Nolan DO [address] [place], [place] [address] Hospice Physician Peripheral Vascular 01/26/19 Jennifer Arias MD [address] [facility] [address] [place], [place] [address] Physician Internal Medicine 02/11/19 Andrez Pitts DO [address] [place], [place] [address] Gastroenterology 11/21/23 Kenya Garcia MD [address] [place] [address] General Surgery 09/15/24 Sidney Joya MD [address] [address] Radiation Oncology 09/16/24 Fredi Jones MD 1261 [facility] [address] [place] [address] Cardiology 09/16/24 Sarah Pearson PA-C [address] [place], [place] [address]20 Rheumatology 09/16/24 Raul Hendrix LISW [address]21 [place] [address] Veterinary Assistant Technician Hematology/Oncology 09/18/24 Josh Bennett DO [address] [facility] [address] Hematology/Oncology 09/25/24 Roxanne Bland RN Specialty Returned Goods Inspector Oncology 09/25/24 Splitter Machine Relationship Specialty Start Date End Date Julio Arriaga, PUNCHING MACHINE OPERATOR.QUAL FIELD MANAGER [address] [place] [phone] PCP - General Internal Medicine 10/18/22 Ismael Kidd (Rn)(Hist), RN Specialty Returned Goods Inspector Hematology/Oncology 08/30/17 Quin Nolan DO [address] [place], [place] [address] Hospice Physician Peripheral Vascular 01/26/19 Jennifer Arias MD [address] [facility] [address] [place], [place] [address] Physician Internal Medicine 02/11/19 Andrez Pitts DO [address] [facility] [address] [place], [place] [address] Gastroenterology 11/21/23 Kenya Garcia MD [address] [place] [address] General Surgery 09/15/24 Sidney Joya MD [address] [address] Radiation Oncology 09/16/24 Fredi Jones MD 1261 [facility] [address] [place] [address] Cardiology 09/16/24 Sarah Pearson PA-C [address] [place], [place] [address] Rheumatology 09/16/24 Raul Hendrix LISW [address] [place] [address] Veterinary Assistant Technician Hematology/Oncology 09/18/24 Josh Bennett DO [address] [place] [address] Hematology/Oncology 09/25/24 Roxanne Bland RN Specialty Returned Goods Inspector Oncology 09/25/24 Splitter Machine Relationship Specialty Start Date End Date Julio Arriaga, PUNCHING MACHINE OPERATOR.QUAL FIELD MANAGER [address] [place] [phone] PCP - General Internal Medicine 10/18/22 Ismael Kidd (Rn)(Hist), RN Specialty Returned Goods Inspector Hematology/Oncology 08/30/17 Quin Nolan DO [address] [place], [place] [address] Hospice Physician Peripheral Vascular 01/26/19 Jennifer Arias MD [address] [facility] [address] [place], [place] [address]373 Physician Internal Medicine 02/11/19 Andrez Pitts DO [address] [address] [place], [place] [address] Gastroenterology 11/21/23 Kenya Garcia MD [address] [place] [address] General Surgery 09/15/24 Sidney Joya MD [address] [facility] [place] [address] Radiation Oncology 09/16/24 Fredi Jones MD [address] [facility] [address] [place], [place] [address] Cardiology 09/16/24 Sarah Pearson PA-C [address] [place], [place] [address] Rheumatology 09/16/24 Raul Hendrix LISW [address] [place] [address] Veterinary Assistant Technician Hematology/Oncology 09/18/24 Josh Bennett DO [address] [place], [place] [address] Hematology/Oncology 09/25/24 Roxanne Bland, LÓPEZ Specialty Returned Goods Inspector Oncology 09/25/24 Team Status: Active Member Role Status Dates Julio Arriaga NP, GEOLOGY ASSOCIATE-C Primary Care Provider Active Team Status: Inactive Member Role Status Dates Julio Arriaga NP, GEOLOGY ASSOCIATE-C Primary Care Provider Active Start: August 27, 2024 End: August 27, 2024 Julio Arriaga NP, GEOLOGY ASSOCIATE-C Referring Provider Active Start: August 27, 2024 End: August 27, 2024 Dr. Andrez Pitts DO Attending Provider Active Start: August 27, 2024 End: August 27, 2024 Team Status: Inactive Member Role Status Dates Julio Arriaga NP, GEOLOGY ASSOCIATE-C Primary Care Provider Active Start: September 02, [...] Member Role Status Dates Julio Arriaga NP, GEOLOGY ASSOCIATE-C Primary Care Provider Active Start: September 02, 2024 Dr. Sonia Germain DO Emergency Provider Active Start: September 02, 2024 Dr. Kenya Garcia MD Attending Provider Active Start: September 02, 2024 Dr. Kenya Garcia MD Other Provider Active St art: September 02, 2024 Team Status: Active Member Role Status Dates Julio Arriaga NP, GEOLOGY ASSOCIATE-C Primary Care Provider Active Start: September 03, 2024 Dr. Snoia Germain DO Emergency Provider Active Start: September 03, 2024 Dr. Kenya Garcia MD Admit Provider Active St art: September 03, 2024 Dr. Kenya Garcia MD Attending Provider Active Start: September 03, 2024 Dr. Kenya Garcia MD Other Provider Active St art: September 03, 2024 Team Status: Inactive Member Role Status Dates Julio Arriaga NP, GEOLOGY ASSOCIATE-C Primary Care Provider Active Start: September 15, 2024 End: September 15, 2024 Julio Arriaga NP, GEOLOGY ASSOCIATE-C Referring Provider Active Start: September 15, 2024 End: September 15, 2024 Dr. Kenya Garcia MD Attending Provider Active Start: September 15, 2024 End: September 15, 2024 Team Status: Inactive Member Role Status Dates Julio Arriaga NP, GEOLOGY ASSOCIATE-C Primary Care Provider Active Start: September 24, [...] Inactive Member Role Status Dates Julio Arriaga GEOLOGY ASSOCIATE, GEOLOGY ASSOCIATE-C Primary Care Provider Active Start: October 02, 2024 End: October 02, 2024 Dr. Josh Bennett DO Attending Provider Active St art: October 02, 2024 End: October 02, 2024 Dr. Josh Bennett DO Referring Provider Active St art: October 02, 2024 End: October 02, 2024 Team Status: Active Member Role Status Dates Julio Arriaga GEOLOGY ASSOCIATE, GEOLOGY ASSOCIATE-C Primary Care Provider Active Start: October 19, 2024 Dr. Josh Bennett DO Attending Provider Active St art: October 19, 2024 Dr. Josh Bennett DO Referring Provider Active St art: October 19, 2024 Team Status: Active Member Role Status Dates Julio Arriaga GEOLOGY ASSOCIATE, GEOLOGY ASSOCIATE-C Primary Care Provider Active Start: October 19, 2024 Dr. Lincoln Richards MD Attending Provider Active S tart: October 19, 2024 Team Status: Inactive Member Role Status Dates Julio Arriaga GEOLOGY ASSOCIATE, GEOLOGY ASSOCIATE-C Primary Care Provider Active Start: October 24, 2024 End: October 25, 2024 Dr. Rigoberto Dow DO Emergency Provider Active Start : October 24, 2024 End: October 25, 2024 Team Status: Inactive Member Role Status Dates Julio Arriaga GEOLOGY ASSOCIATE, GEOLOGY ASSOCIATE-C Primary Care Provider Active Start: October 19, 2024 End: October 19, 2024 Dr. Josh Bennett DO Attending Provider Active St art: October 19, 2024 End: October 19, 2024 Dr. Josh Bennett DO Referring Provider Active St art: October 19, 2024 End: October 19, 2024 Splitter Machine Relationship Specialty Start Date End Date Julio Arriaga, PUNCHING MACHINE OPERATOR.QUAL FIELD MANAGER [address] [place] [address] PCP - General Internal Medicine 10/18/22 Ismael Kidd (Rn)(Hist), RN Specialty Returned Goods Inspector Hematology/Oncology 08/30/17 Quin Nolan DO [address] [place], [place] [address] Hospice Physician Peripheral Vascular 01/26/19 Jennifer Arias MD 4125 [facility] 209 [place] [address] Physician Internal Medicine 02/11/19 Andrez Pitts DO 1761 [facility] 3[address] [place], [place] [address] Gastroenterology 11/21/23 Kenya Garcia MD [address] [place] [address] General Surgery 09/15/24 Sidney Joya MD [address] [place], [place] [address] Radiation Oncology 09/16/24 Fredi Jones MD 1261 [facility] [address] [place], [place] [address] Cardiology 09/16/24 Sarah Pearson PA-C [address] [place], [place] 6[address]80 Rheumatology 09/16/24 Raul Hendrix LISW [address] [place] [address] Veterinary Assistant Technician Hematology/Oncology 09/18/24 Josh Bennett DO [address] [place], [place] [address] Hematology/Oncology 09/25/24 Roxanne Bland RN Specialty Returned Goods Inspector Oncology 09/25/24 Splitter Machine Relationship Specialty Start Date End Date Julio Arriaga, PUNCHING MACHINE OPERATOR.QUAL FIELD MANAGER [address] [place] [phone] PCP - General Internal Medicine 10/18/22 Ismael Kidd (Rn)(Hist), RN Specialty Returned Goods Inspector Hematology/Oncology 08/30/17 Quin Nolan DO [address] [place], [place] [address] Hospice Physician Peripheral Vascular 01/26/19 Jennifer Arias MD [address] [facility] [address] [place], [place] [address] Physician Internal Medicine 02/11/19 Andrez Pitts DO [address] [facility] 3[address] [place] [address] Gastroenterology 11/21/23 Kenya Garcia MD [address] [place] [address] General Surgery 09/15/24 Sidney Joya MD [address] [address] Radiation Oncology 09/16/24 Fredi Jones MD 1261 [facility] [address] [place] [address] Cardiology 09/16/24 Sarah Pearson PA-C [address] [place], [place] [address] Rheumatology 09/16/24 Raul Hendrix LISW [address] [place] [address] Veterinary Assistant Technician Hematology/Oncology 09/18/24 Josh Bennett DO [address] [place] [address] Hematology/Oncology 09/25/24 Roxanne Bland, RN Specialty Returned Goods Inspector Oncology 09/25/24 Splitter Machine Relationship Specialty Start Date End Date Julio Arriaga, PUNCHING MACHINE OPERATOR.QUAL FIELD MANAGER [address] [place] [phone] PCP - General Internal Medicine 10/18/22 Ismael Kidd (Rn)(Hist), RN Specialty Returned Goods Inspector Hematology/Oncology 08/30/17 Quin Nolan DO [address] [place] [address] Hospice Physician Peripheral Vascular 01/26/19 Jennifer Arias MD 4125 [facility] 209 [place] [address] Physician Internal Medicine 02/11/19 Andrez Pitts DO [address] [facility] 3[address] [place] [address] Gastroenterology 11/21/23 Kenya Garcia MD [address] [place] [address] General Surgery 09/15/24 Sidney Joya MD [address] [place] [address] Radiation Oncology 09/16/24 Fredi Jones MD 1261 [facility] [address] [place] [address] Cardiology 09/16/24 Sarah Pearson, PAMadayC [address] [place] [address] Rheumatology 09/16/24 Raul Hendrix LISW [address] [place] [address] Veterinary Assistant Technician Hematology/Oncology 09/18/24 Josh Bennett DO [address] [place], [place] [address] Hematology/Oncology 09/25/24 Roxanne Bland RN Specialty Returned Goods Inspector Oncology 09/25/24 Splitter Machine Relationship Specialty Start Date End Date Julio Arriaga, PUNCHING MACHINE OPERATOR.QUAL FIELD MANAGER [address] [place] [phone] PCP - General Internal Medicine 10/18/22 Ismael Kidd (Rn)(Hist), RN Specialty Returned Goods Inspector Hematology/Oncology 08/30/17 Quin Nolan DO [address] [place], [place] 39[address] Hospice Physician Peripheral Vascular 01/26/19 Jennifer Arias MD [address] [address] Physician Internal Medicine 02/11/19 Andrez Pitts DO [address] [place] [address] Gastroenterology 11/21/23 Kenya Garcia MD [address] [place], [place] [address] General Surgery 09/15/24 Sidney Joya MD [address] [place] [place], [place] [address] Radiation Oncology 09/16/24 Fredi Jones MD 1261 [facility] [address] [place] [address] Cardiology 09/16/24 Sarah Pearson PA-C [address] [place] [address] Rheumatology 09/16/24 Raul Hendrix LISW [address] [place] [address] Veterinary Assistant Technician Hematology/Oncology 09/18/24 Josh Bennett DO [address] [place], [place] 804721 Hematology/Oncology 09/25/24 Roxanne Bland RN Specialty Returned Goods Inspector Oncology 09/25/24 Splitter Machine Relationship Specialty Start Date End Date Julio Arriaga, PUNCHING MACHINE OPERATOR.QUAL FIELD MANAGER [address] [place] [address] PCP - General Internal Medicine 10/18/22 Ismael Kidd (Rn)(Hist), RN Specialty Returned Goods Inspector Hematology/Oncology 08/30/17 Quin Nolan DO [address] [facility] [place] [address] Hospice Physician Peripheral Vascular 01/26/19 Jennifer Arias MD [address] [facility] 209 [place] [address] Physician Internal Medicine 02/11/19 nAdrez Pitts DO [address] [facility] [address] [place] [address] Gastroenterology 11/21/23 Kenya Garcia MD [address] [place] [address] General Surgery 09/15/24 Sidney Joya MD [address] [facility] [place] [address] Radiation Oncology 09/16/24 Fredi Jones MD 1261 [facility] [address] [place], [place] [address] Cardiology 09/16/24 Sarah Pearson, PAMadayC [address] [place], [place] [id number] Rheumatology 09/16/24 Raul Hendrix LISW [address] [place] [address] Veterinary Assistant Technician Hematology/Oncology 09/18/24 Josh Bennett DO [address] [facility] [place] [address] Hematology/Oncology 09/25/24 Roxanne Bland RN Specialty Returned Goods Inspector Oncology 09/25/24 Splitter Machine Relationship Specialty Start Date End Date Julio Arriaga, PUNCHING MACHINE OPERATOR.QUAL FIELD MANAGER [address] [place] [phone] PCP - General Internal Medicine 10/18/22 Ismael Kidd (Rn)(Hist), RN Specialty Returned Goods Inspector Hematology/Oncology 08/30/17 Quin Nolan DO [address] [facility] [place], [place] [address] Hospice Physician Peripheral Vascular 01/26/19 Jennifer Arias MD [address] [facility] 209 [place], [place] [address] Physician Internal Medicine 02/11/19 Andrez Pitts DO 1761 [facility] [address] [place], [place] [address] Gastroenterology 11/21/23 Kenya Garcia MD [address] [place] [address] General Surgery 09/15/24 Sidney Joya MD [address] [place], [place] 411[address] Radiation Oncology 09/16/24 Fredi Jones MD [address] [facility] [address] [place] [address] Cardiology 09/16/24 Sarah Pearson PAMadayC [address] [place] [address] Rheumatology 09/16/24 Raul Hendrix LISW [address] [place] [address] Veterinary Assistant Technician Hematology/Oncology 09/18/24 Josh Bennett DO [address] [place], [place] 99[address] Hematology/Oncology 09/25/24 Roxanne Bland, RN Specialty Returned Goods Inspector Oncology 09/25/24 Team Status: Active Member Role Status Dates Julio Arriaga GEOLOGY ASSOCIATE, GEOLOGY ASSOCIATE-C Primary Care Provider Active Start: October 19, 2024 Dr. Lincoln Richards MD Attending Provider Active S tart: October 19, 2024 Dr. Josh Bennett DO Referring Provider Active St art: October 19, 2024 Team Status: Inactive Member Role Status Dates Julio Arriaga GEOLOGY ASSOCIATE, GEOLOGY ASSOCIATE-C Primary Care Provider Active Start: October 24, 2024 End: October 25, 2024 Dr. [place]oberto Dow DO Attending Provider Active Start : October 24, 2024 End: October 25, 2024 Dr. Rigoberto Dow , DO Emergency Provider Active Start : October 24, 2024 End: October 25, 2024 Team Status: Inactive Member Role Status Dates Julio Arriaga GEOLOGY ASSOCIATE, GEOLOGY ASSOCIATE-C Primary Care Provider Active Start: October 30, 2024 End: October 30, 2024 Dr. Gaudencio Ambriz DO Emergency Provider Active Start: October 30, 2024 End: October 30, 2024 Splitter Machine Relationship Specialty Start Date End Date Julio Arriaga, PUNCHING MACHINE OPERATOR.QUAL FIELD MANAGER [address] [place] [address] PCP - General Internal Medicine 10/18/22 Ismael Kidd (Rn)(Hist), RN Specialty Returned Goods Inspector Hematology/Oncology 08/30/17 Quin Nolan DO [address] [place], [place] [address]84221 Hospice Physician Peripheral Vascular 01/26/19 Jennifer Arias MD [address] [facility] [address] [place], [place] [address] Physician Internal Medicine 02/11/19 Andrez Pitts DO [address] [facility] [address] [place], [place] [address] Gastroenterology 11/21/23 Kenya Garcia MD [address] [place] [address] General Surgery 09/15/24 Sidney Joya MD [address] [place] [address] Radiation Oncology 09/16/24 Fredi Jones MD 1261 [facility] [address] [address] [place], [place] [address] Cardiology 09/16/24 Sarah Pearson PA-C [address] [place], [place] 514650 Rheumatology 09/16/24 Raul Hendrix LISW [address] [place] [address] Veterinary Assistant Technician Hematology/Oncology 09/18/24 Josh Bennett DO [address] [facility] [place], [place] [address] Hematology/Oncology 09/25/24 Roxanne Bland, LÓPEZ Specialty Returned Goods Inspector Oncology 09/25/24 Splitter Machine Relationship Specialty Start Date End Date Julio Arriaga, PUNCHING MACHINE OPERATOR.QUAL FIELD MANAGER [address] [place] [phone] PCP - General Internal Medicine 10/18/22 Ismael Kidd (Rn)(Hist), RN Specialty Returned Goods Inspector Hematology/Oncology 08/30/17 Quin Nolan DO [address] [place], [place] [address] Hospice Physician Peripheral Vascular 01/26/19 Jennifer Arias MD [address] [address] Physician Internal Medicine 02/11/19 Andrez Pitts DO [address] [place], [place] [address]31 Gastroenterology 11/21/23 Kenya Garcia MD [address] [place] [address] General Surgery 09/15/24 Sidney Joya MD [address] [place] [address] Radiation Oncology 09/16/24 Fredi Jones MD 1261 [facility] [address] [place] [address] Cardiology 09/16/24 Sarah Pearson, PAMadayC [address] [place], [place] 222860 Rheumatology 09/16/24 Raul Hendrix LISW [address] [place] [address] Veterinary Assistant Technician Hematology/Oncology 09/18/24 Josh Bennett DO [address] [place] [address] Hematology/Oncology 09/25/24 Roxanne Bland RN Specialty Returned Goods Inspector Oncology 09/25/24 Splitter Machine Relationship Specialty Start Date End Date Julio Arriaga, PUNCHING MACHINE OPERATOR.QUAL FIELD MANAGER [address] [place] [phone] PCP - General Internal Medicine 10/18/22 Ismael Kidd (Rn)(Hist), RN Specialty Returned Goods Inspector Hematology/Oncology 08/30/17 Quin Nolan DO [address] [place] [address] Hospice Physician Peripheral Vascular 01/26/19 Jennifer Arias MD [address] [facility] 209 [place], [place] [address] Physician Internal Medicine 02/11/19 Andrez Pitts DO [address] [facility] [address] [place], [place] [address] Gastroenterology 11/21/23 Kenya Garcia MD [address] [place], [place] [address] General Surgery 09/15/24 Sidney Joya MD [address] [place] [address] Radiation Oncology 09/16/24 Fredi Jones MD [address] [address]28[address] Cardiology 09/16/24 Sarah Pearson, PARowan [address] [place] [address] Rheumatology 09/16/24 Raul Hendrix LISW [address]21 [place] [address] Veterinary Assistant Technician Hematology/Oncology 09/18/24 Josh Bennett DO [address] [place] [address] Hematology/Oncology 09/25/24 Roxanne Bland RN Specialty Returned Goods Inspector Oncology 09/25/24 Splitter Machine Relationship Specialty Start Date End Date Julio Arriaga, PUNCHING MACHINE OPERATOR.QUAL FIELD MANAGER [address] [place] [phone] PCP - General Internal Medicine 10/18/22 Ismael Kidd (Rn)(Hist), RN Specialty Returned Goods Inspector Hematology/Oncology 08/30/17 Quin Nolan DO [address] [place] [address] Hospice Physician Peripheral Vascular 01/26/19 Jennifer Arias MD [address] [facility] [address] [place] [address] Physician Internal Medicine 02/11/19 Andrez Pitts DO [address] [facility] [address] [place] [address] Gastroenterology 11/21/23 Kenya Garcia MD [address] [place] [address] General Surgery 09/15/24 Sidney Joya MD [address] [place], [place] 399181 Radiation Oncology 09/16/24 Fredi Jones MD 1261 [facility] [address] [place], [place] [id number] Cardiology 09/16/24 Sarah Pearson, PARowan [address] [place], [place] 3[address]10 Rheumatology 09/16/24 Raul Hendrix LISW [address] [place] [address] Veterinary Assistant Technician Hematology/Oncology 09/18/24 Josh Bennett DO [address] [place] [address] Hematology/Oncology 09/25/24 Roxanne Bland RN Specialty Returned Goods Inspector Oncology 09/25/24 Splitter Machine Relationship Specialty Start Date End Date Julio Arriaga, PUNCHING MACHINE OPERATOR.QUAL FIELD MANAGER [address] [place] [phone] PCP - General Internal Medicine 10/18/22 Ismael Kidd (Rn)(Hist), RN Specialty Returned Goods Inspector Hematology/Oncology 08/30/17 Quin Nolan DO [address] [place], [place] 3[address] Hospice Physician Peripheral Vascular 01/26/19 Jennifer Arias MD [address] [facility] [address] [place], [place] 203453 Physician Internal Medicine 02/11/19 Andrez Pitts DO [address] [facility] [address] [place], [place] [address] Gastroenterology 11/21/23 Kenya Garcia MD [address] [place] [address] General Surgery 09/15/24 Sidney Joya MD [address] [place] [place], [place] 2[address] Radiation Oncology 09/16/24 Fredi Jones MD 1261 [facility] [address] [place], [place] [address] Cardiology 09/16/24 Sarah Pearson PA-Marga [address] [place], [place] 8[address]400 Rheumatology 09/16/24 Raul Hendrix LISW [address] [place] [address] Veterinary Assistant Technician Hematology/Oncology 09/18/24 Josh Bennett DO [address] [place], [place] [address] Hematology/Oncology 09/25/24 Roxanne Bland RN Specialty Returned Goods Inspector Oncology 09/25/24 Splitter Machine Relationship Specialty Start Date End Date Corina, Julio D, PUNCHING MACHINE OPERATOR.QUAL FIELD MANAGER [address] [place] [phone] PCP - General Internal Medicine 10/18/22 Ismael Kidd (Rn)(Hist), RN Specialty Returned Goods Inspector Hematology/Oncology 08/30/17 Quin Nolan DO [address] [address] Hospice Physician Peripheral Vascular 01/26/19 Jennifer Arias MD 4125 [facility] [address] [place], [place] 636383 Physician Internal Medicine 02/11/19 Andrez Pitts DO [address] [facility] [address] [place] [address] Gastroenterology 11/21/23 Kenya Garcia MD [address] [place] [address] General Surgery 09/15/24 Sidney Joya MD [address] [address] Radiation Oncology 09/16/24 Fredi Jones MD 1261 [facility] [address] [place], [place] 85[address] Cardiology 09/16/24 Sarah Pearson PA-C [address] [place], [place] 8[address]280 Rheumatology 09/16/24 Raul Hendrix LISW [address] [place] [address] Veterinary Assistant Technician Hematology/Oncology 09/18/24 Josh Bennett DO [address] [place] [address] Hematology/Oncology 09/25/24 Roxanne Bland, LÓPEZ Specialty Returned Goods Inspector Oncology 09/25/24 Splitter Machine Relationship Specialty Start Date End Date Julio Arriaga, PUNCHING MACHINE OPERATOR.QUAL FIELD MANAGER [address] [place] [phone] PCP - General Internal Medicine 10/18/22 Ismael Kidd (Rn)(Hist), RN Specialty Returned Goods Inspector Hematology/Oncology 08/30/17 Quin Nolan DO [address] [place] [place], [place] 0[address]381 Hospice Physician Peripheral Vascular 01/26/19 Jennifer Arias MD [address] [facility] [address] [place], [place] 102193 Physician Internal Medicine 02/11/19 Andrez Pitts DO [address] [facility] [address] [place] [address] Gastroenterology 11/21/23 Kenya Garcia MD [address] [place] [address] General Surgery 09/15/24 Sidney Joya MD [address] [place] [address] Radiation Oncology 09/16/24 Fredi Jones MD [address] [place] [address] [facility] [address] [place] [address] Cardiology 09/16/24 Sarah Pearson PA-C [address] [place] [address] Rheumatology 09/16/24 Raul Hendrix LISW [address] [place] [address] Veterinary Assistant Technician Hematology/Oncology 09/18/24 Josh Bennett DO [address] [place] [place], [place] [address] Hematology/Oncology 09/25/24 Roxanne Bland RN Specialty Returned Goods Inspector Oncology 09/25/24 Splitter Machine Relationship Specialty Start Date End Date Julio Arriaga, PUNCHING MACHINE OPERATOR.QUAL FIELD MANAGER [address] [place] [phone] PCP - General Internal Medicine 10/18/22 Ismael Kidd (Rn)(Hist), RN Specialty Returned Goods Inspector Hematology/Oncology 08/30/17 Quin Nolan DO [address] [place], [place] [id number] Hospice Physician Peripheral Vascular 01/26/19 Jennifer Arias MD [address] [facility] [address] [place], [place] 3[address]13 Physician Internal Medicine 02/11/19 Andrez Pitts DO [address] [place], [place] 476341 Gastroenterology 11/21/23 Kenya Garcia MD [address] [place] [address] General Surgery 09/15/24 Sidney Joya MD [address] [address] Radiation Oncology 09/16/24 Fredi Jones MD 1261 [facility] [address] [place], [place] [address] Cardiology 09/16/24 Sarah Pearson, LIZZIE [address] [place] [address] Rheumatology 09/16/24 Raul Hendrix LISW [address] [place] [address] Veterinary Assistant Technician Hematology/Oncology 09/18/24 Josh Bennett DO [address] [place] [place], [place] 2[address] Hematology/Oncology 09/25/24 Roxanne Bland RN Specialty Returned Goods Inspector Oncology 09/25/24 Splitter Machine Relationship Specialty Start Date End Date Julio Arriaga, PUNCHING MACHINE OPERATOR.QUAL FIELD MANAGER [address] [place] [phone] PCP - General Internal Medicine 10/18/22 Ismael Kidd (Rn)(Hist), RN Specialty Returned Goods Inspector Hematology/Oncology 08/30/17 Quin Nolan DO [address] [facility] [place] [place] [address] Hospice Physician Peripheral Vascular 01/26/19 Jennifer Arias MD [address] [facility] [address] [place], [place] [address]23 Physician Internal Medicine 02/11/19 Andrez Pitts DO [address] [place], [place] [address] Gastroenterology 11/21/23 Kenya Garcia MD [address] [place] [address] General Surgery 09/15/24 Sidney Joya MD [address] [place] [address] Radiation Oncology 09/16/24 Fredi Jones MD 1261 [facility] [address] [place], [place] [address] Cardiology 09/16/24 Sarah Pearson, PAMadayC [address] [place], [place] 981130 Rheumatology 09/16/24 Raul Hendrix LISW [address] [place] [address] Veterinary Assistant Technician Hematology/Oncology 09/18/24 Josh Bennett DO [address] [place], [place] 768141 Hematology/Oncology 09/25/24 Roxanne Bland RN Specialty Returned Goods Inspector Oncology 09/25/24 Splitter Machine Relationship Specialty Start Date End Date Julio Arriaga, PUNCHING MACHINE OPERATOR.QUAL FIELD MANAGER [address] [place] [phone] PCP - General Internal Medicine 10/18/22 Ismael Kidd (Rn)(Hist), RN Specialty Returned Goods Inspector Hematology/Oncology 08/30/17 Quin Nolan DO [address] [place], [place] [address] Hospice Physician Peripheral Vascular 01/26/19 Jennifer Arias MD [address] [facility] [address] [place], [place] 118953 Physician Internal Medicine 02/11/19 Andrez Pitts DO [address] [address] Gastroenterology 11/21/23 Kenya Garcia MD [address] [place] [address] General Surgery 09/15/24 Sidney Joya MD [address] [place], [place] [address]2375[address] Radiation Oncology 09/16/24 Fredi Jones MD [address] [id number] Cardiology 09/16/24 Sarah Pearson, LIZZIE [address] [place] [address] Rheumatology 09/16/24 Raul Hendrix LISW [address] [place] [address] Veterinary Assistant Technician Hematology/Oncology 09/18/24 Josh Bennett DO [address] [place], [place] [address] Hematology/Oncology 09/25/24 Roaxnne Bland RN Specialty Returned Goods Inspector Oncology 09/25/24 Splitter Machine Relationship Specialty Start Date End Date Julio Arriaga, PUNCHING MACHINE OPERATOR.QUAL FIELD MANAGER [address] [place] [phone] PCP - General Internal Medicine 10/18/22 Ismael Kidd (Rn)(Hist), RN Specialty Returned Goods Inspector Hematology/Oncology 08/30/17 Quin Nolan DO [address] [place], [place] 8[address] Hospice Physician Peripheral Vascular 01/26/19 Jennifer Arias MD [address] [facility] 209 [place] [address] Physician Internal Medicine 02/11/19 Andrez Pitts DO [address] [facility] [address] [place], [place] [address]331 Gastroenterology 11/21/23 Kenya Garcia MD [address] [place] [address] General Surgery 09/15/24 Sidney Joya MD [address] [place], [place] 585291 Radiation Oncology 09/16/24 Fredi Jones MD 1261 [facility] [address] [place], [place] 4[address] Cardiology 09/16/24 Sarah Pearson, LIZZIE [address] [place], [place] 70[address]90 Rheumatology 09/16/24 Raul Hendrix LISW [address] [place] [address] Veterinary Assistant Technician Hematology/Oncology 09/18/24 Josh Bennett DO [address] [place], [place] [address] Hematology/Oncology 09/25/24 Roxanne Bland RN Specialty Returned Goods Inspector Oncology 09/25/24 Splitter Machine Relationship Specialty Start Date End Date Julio Arriaga, PUNCHING MACHINE OPERATOR.QUAL FIELD MANAGER [address] [place] [address] PCP - General Internal Medicine 10/18/22 Ismael Kidd (Rn)(Hist), RN Specialty Returned Goods Inspector Hematology/Oncology 08/30/17 Quin Nolan DO [address] [place] [address] Hospice Physician Peripheral Vascular 01/26/19 Jennifer Arias MD [address] [facility] [address] [place], [place] [address]243 Physician Internal Medicine 02/11/19 Andrez Pitts DO [address] [facility] [address] [place] [address] Gastroenterology 11/21/23 Kenya Garcia MD [address] [facility] [place] [address] General Surgery 09/15/24 Sidney Joya MD [address] [address] Radiation Oncology 09/16/24 Fredi Jones MD 1261 [facility] [address] [place] [address] Cardiology 09/16/24 Sarah Pearson PA-C [address] [place], [place] [address] Rheumatology 09/16/24 Raul Hendrix LISW [address] [place] [address] Veterinary Assistant Technician Hematology/Oncology 09/18/24 Josh Bennett DO [address] [place] [address] Hematology/Oncology 09/25/24 Roxanne Bland, RN Specialty Returned Goods Inspector Oncology 09/25/24 Splitter Machine Relationship Specialty Start Date End Date Julio Arriaga, PUNCHING MACHINE OPERATOR.QUAL FIELD MANAGER [address] [place] [phone] PCP - General Internal Medicine 10/18/22 Ismael Kidd (Rn)(Hist), RN Specialty Returned Goods Inspector Hematology/Oncology 08/30/17 Quin Nolan DO [address] [place] [address] Hospice Physician Peripheral Vascular 01/26/19 Jennifer Arias MD 4125 [facility] [address] [place], [place] 312503 Physician Internal Medicine 02/11/19 Andrez Pitts DO 1761 [facility] [address] [place] [address] Gastroenterology 11/21/23 Kenya Garcia MD [address] [facility] [place] [address] General Surgery 09/15/24 Sidney Joya MD [address] [place] [address] Radiation Oncology 09/16/24 Fredi Jones MD 1261 [facility] [address] [place] [address] Cardiology 09/16/24 Sarah Pearson, PA-C [address] [place] [address] Rheumatology 09/16/24 Raul Hendrix LISW [address] [place] [address] Veterinary Assistant Technician Hematology/Oncology 09/18/24 Josh Bennett DO [address] [place] [place], [place] [address]181 Hematology/Oncology 09/25/24 Roxanne Blnad RN Specialty Returned Goods Inspector Oncology 09/25/24 Splitter Machine Relationship Specialty Start Date End Date Julio Arriaga, PUNCHING MACHINE OPERATOR.QUAL FIELD MANAGER [address] [place] [phone] PCP - General Internal Medicine 10/18/22 Ismael Kidd (Rn)(Hist), RN Specialty Returned Goods Inspector Hematology/Oncology 08/30/17 Quin Nolan DO [address] [place], [place] [address] Hospice Physician Peripheral Vascular 01/26/19 Jennifer Arias MD [address] 8888[address] Physician Internal Medicine 02/11/19 Andrez Pitts DO [address] [place] [address] Gastroenterology 11/21/23 Kenya Garcia MD [address] [place] [address] General Surgery 09/15/24 Sidney Joya MD [address] [place], [place] [address] Radiation Oncology 09/16/24 Fredi Jones MD 1261 [facility] [address] [place] [address] Cardiology 09/16/24 Sarah Pearson PA-C [address] [place] [address] Rheumatology 09/16/24 Raul Hendrix LISW [address] [place] [address] Veterinary Assistant Technician Hematology/Oncology 09/18/24 Josh Bennett DO [address] [place], [place] 726261 Hematology/Oncology 09/25/24 Roxanne Bland RN Specialty Returned Goods Inspector Oncology 09/25/24 Splitter Machine Relationship Specialty Start Date End Date Julio Arriaga, PUNCHING MACHINE OPERATOR.QUAL FIELD MANAGER [address] [place] [phone] PCP - General Internal Medicine 10/18/22 Ismael Kidd (Rn)(Hist), RN Specialty Returned Goods Inspector Hematology/Oncology 08/30/17 Quin Nolan DO [address] [facility] [place], [place] [address] Hospice Physician Peripheral Vascular 01/26/19 Jennifer Arias MD [address] [facility] 209 [place] [address] Physician Internal Medicine 02/11/19 Andrez Pitts DO [address] [facility] [address] [place] [address] Gastroenterology 11/21/23 Kenya Garcia MD [address] [place] [address] General Surgery 09/15/24 Sidney Joya MD [address] [address] Radiation Oncology 09/16/24 Fredi Jones MD [address] [address] Cardiology 09/16/24 Sarah Pearson PAMadayC [address] [place], [place] 86[address]60 Rheumatology 09/16/24 Raul Hendrix LISW [address] [place] [address] Veterinary Assistant Technician Hematology/Oncology 09/18/24 Josh Bennett DO [address] [place] [address] Hematology/Oncology 09/25/24 Roxanne Bland, LÓPEZ Specialty Returned Goods Inspector Oncology 09/25/24 Team Status: Inactive Member Role Status Dates Julio Arriaga NP, GEOLOGY ASSOCIATE-C Primary Care Provider Active Start: October 30, 2024 End: October 30, 2024 Dr. Gaudencio Ambriz DO Attending Provider Active Start: October 30, 2024 End: October 30, 2024 Dr. Gaudencio Ambriz DO Emergency Provider Active Start: October 30, 2024 End: October 30, 2024 Team Status: Inactive Member Role Status Dates Woo Thaap MD Emergency Provider Active Star t: December 27, 2024 End: December 27, 2024 Julio Arriaga NP, GEOLOGY ASSOCIATE-C Primary Care Provider Active Start: December 27, 2024 End: December 27, 2024 Splitter Machine Relationship Specialty Start Date End Date Julio Arriaga, PUNCHING MACHINE OPERATOR.QUAL FIELD MANAGER [address] [place] [phone] PCP - General Internal Medicine 10/18/22 Ismael Kidd (Rn)(Hist), RN Specialty Returned Goods Inspector Hematology/Oncology 08/30/17 Quin Nolan DO [address] [place] [address] Hospice Physician Peripheral Vascular 01/26/19 Jennifer Arias MD [address] [facility] 209 [place], [place] 49[address]33 Physician Internal Medicine 02/11/19 Andrez Pitts DO [address] [facility] [address] [place], [place] [address]171 Gastroenterology 11/21/23 Kenya Garcia MD [address] [place] [address] General Surgery 09/15/24 Sidney Joya MD [address] [place] [address] Radiation Oncology 09/16/24 Fredi Jones MD 1261 [facility] [address] [place], [place] [address] Cardiology 09/16/24 Sarah Pearson PA-C [address] [place] [address] Rheumatology 09/16/24 Raul Hendrix LISW [address] [place] [address] Veterinary Assistant Technician Hematology/Oncology 09/18/24 Josh Bennett DO [address] [place], [place] [address]861 Hematology/Oncology 09/25/24 Roxanne Bland RN Specialty Returned Goods Inspector Oncology 09/25/24 Splitter Machine Relationship Specialty Start Date End Date Julio Arriaga, PUNCHING MACHINE OPERATOR.QUAL FIELD MANAGER [address] [place] [address] PCP - General Internal Medicine 10/18/22 Ismael Kidd (Rn)(Hist), RN Specialty Returned Goods Inspector Hematology/Oncology 08/30/17 Quin Nolan DO [address] [place], [place] [address] Hospice Physician Peripheral Vascular 01/26/19 Jennifer Arias MD [address] [facility] [address] [place], [place] [address] Physician Internal Medicine 02/11/19 Andrez Pitts DO 1761 [facility] 3[address] [place] [address] Gastroenterology 11/21/23 Kenya Garcia MD [address] [facility] [place] [address] General Surgery 09/15/24 Sidney Joya MD [address] [place] [address] Radiation Oncology 09/16/24 Fredi Jones MD 1261 [facility] [address] [place], [place] [address] Cardiology 09/16/24 Sarah Pearson PA-C [address] [place], [place] [address]60 Rheumatology 09/16/24 Raul Hendrix LISW [address] [place] [address] Veterinary Assistant Technician Hematology/Oncology 09/18/24 Josh Bennett DO [address] [place] [address] Hematology/Oncology 09/25/24 Roxanne Bland RN Specialty Returned Goods Inspector Oncology 09/25/24 Team Status: Inactive Member Role Status Dates Woo Thapa MD Attending Provider Active Star t: December 27, 2024 End: December 27, 2024 Woo Thapa MD Emergency Provider Active Star t: December 27, 2024 End: December 27, 2024 Julio Arriaga NP, GEOLOGY ASSOCIATE-C Primary Care Provider Active Start: December 27, 2024 End: December 27, 2024 Team Status: Inactive Member Role Status Dates Michelle Baker NP-C Attending Provider Active Start: January 14, 2025 End: January 14, 2025 Julio Arriaga NP, GEOLOGY ASSOCIATE-C Primary Care Provider Active Start: January 14, 2025 End: January 14, 2025 Julio Arriaga NP, GEOLOGY ASSOCIATE-C Referring Provider Active Start: January 14, 2025 End: January 14, 2025 Splitter Machine Relationship Specialty Start Date End Date Julio Arriaga, PUNCHING MACHINE OPERATOR.QUAL FIELD MANAGER [address] [place] [address] PCP - General Internal Medicine 10/18/22 Ismael Kidd (Rn)(Hist), RN Specialty Returned Goods Inspector Hematology/Oncology 08/30/17 Quin Nolan DO [address] [place], [place] 245561 Hospice Physician Peripheral Vascular 01/26/19 Jennifer Arias MD [address] [address] Physician Internal Medicine 02/11/19 Andrez Pitts DO [address] [facility] [address] [place] [address] Gastroenterology 11/21/23 Kenya Garcia MD [address] [place] [address] General Surgery 09/15/24 Sidney Joya MD [address] [place] [address] Radiation Oncology 09/16/24 Fredi Jones MD 1261 [facility] [address] [place], [place] [address] Cardiology 09/16/24 Sarah Pearson PA-C [address] [place], [place] 321350 Rheumatology 09/16/24 Raul Hendrix LISW [address] [place] [address] Veterinary Assistant Technician Hematology/Oncology 09/18/24 Josh Bennett DO [address] [address] Hematology/Oncology 09/25/24 Roxanne Bland RN Specialty Returned Goods Inspector Oncology 09/25/24 Splitter Machine Relationship Specialty Start Date End Date Julio Arriaga, PUNCHING MACHINE OPERATOR.QUAL FIELD MANAGER [address] [place] [phone] PCP - General Internal Medicine 10/18/22 Ismael Kidd (Rn)(Hist), RN Specialty Returned Goods Inspector Hematology/Oncology 08/30/17 Quin Nolan DO [address] [place], [place] [address] Hospice Physician Peripheral Vascular 01/26/19 Jennifer Arias MD [address] [facility] 209 [place], [place] [address] Physician Internal Medicine 02/11/19 Andrez Pitts DO 1761 [facility] [address] [place], [place] [address] Gastroenterology 11/21/23 Kenya Garcia MD [address] [place] [address] General Surgery 09/15/24 Sidney Joya MD [address] [place] [address] Radiation Oncology 09/16/24 Fredi Jones MD 1261 [facility] [address] [place], [place] [address] Cardiology 09/16/24 Sarah Pearson PA-C [address] [place], [place] 301480 Rheumatology 09/16/24 Raul Hendrix LISW [address] [place] [address] Veterinary Assistant Technician Hematology/Oncology 09/18/24 Josh Bennett DO [address] [address] Hematology/Oncology 09/25/24 Roxanne Bland, LÓPEZ Specialty Returned Goods Inspector Oncology 09/25/24 Team Status: Active Member Role/Relationship Status Dates Julio Arriaga NP, GEOLOGY ASSOCIATE-C Primary Care Provider Active Team Status: Inactive Member Role/Relationship Status Dates Julio Arriaga NP, GEOLOGY ASSOCIATE-C Primary Care Provider Active Start: October 19, 2024 End: October 19, 2024 Dr. Josh Bennett DO Attending Provider Active St art: October 19, 2024 End: October 19, 2024 Dr. Josh Bennett , Referring Provider Active St art: October 19, 2024 End: October 19, 2024 Team Status: Active Member Role/Relationship Status Dates Julio Arriaga GEOLOGY ASSOCIATE, GEOLOGY ASSOCIATE-C Primary Care Provider Active Start: October 19, 2024 Dr. Lincoln Richards MD Attending Provider Active S tart: October 19, 2024 Dr. Josh Bennett , Referring Provider Active St art: October 19, 2024 Team Status: Inactive Member Role/Relationship Status Dates Julio Arriaga NP, GEOLOGY ASSOCIATE-C Primary Care Provider Active Start: October 24, 2024 End: October 25, 2024 Dr. Rigoberto Dow DO Attending Provider Active Start : October 24, 2024 End: October 25, 2024 Dr. Rigoberto Dow DO Emergency Provider Active Start : October 24, 2024 End: October 25, 2024 Team Status: Inactive Member Role/Relationship Status Dates Julio Arriaga NP, GEOLOGY ASSOCIATE-C Primary Care Provider Active Start: October 30, [...] End: December 27, 2024 Julio Arriaga NP, GEOLOGY ASSOCIATE-C Primary Care Provider Active Start: December 27, 2024 End: December 27, 2024 Team Status: Inactive Member Role/Relationship Status Dates Michelle Baker NP-C Attending Provider Active Start: January 14, 2025 End: January 14, 2025 Julio Arriaga GEOLOGY ASSOCIATE, GEOLOGY ASSOCIATE-C Primary Care Provider Active Start: January 14, 2025 End: January 14, 2025 Julio Arriaga GEOLOGY ASSOCIATE, GEOLOGY ASSOCIATE-C Referring Provider Active Start: January 14, 2025 End: January 14, 2025 Team Status: Inactive Member Role/Relationship Status Dates Julio Corina GEOLOGY ASSOCIATE, GEOLOGY ASSOCIATE-C Primary Care Provider Active Start: February 02, 2025 End: February 02, 2025 Julio Arriaga GEOLOGY ASSOCIATE, GEOLOGY ASSOCIATE-C Referring Provider Active Start: February 02, 2025 End: February 02, 2025 Michelle Baker NP-Marga Attending Provider Active Start: February 02, 2025 End: February 02, 2025 Team Status: Inactive Member Role/Relationship Status Dates Julio Arriaga GEOLOGY ASSOCIATE, GEOLOGY ASSOCIATE-C Primary Care Provider Active Start: February 09, 2025 End: February 09, 2025 Julio Arriaga NP, GEOLOGY ASSOCIATE-C Referring Provider Active Start: February 09, 2025 End: February 09, 2025 Dr. Kenya Garcia MD Attending Provider Active Start: February 09, 2025 End: February 09, 2025 Splitter Machine Relationship Specialty Start Date End Date Julio Arriaga, PUNCHING MACHINE OPERATOR.QUAL FIELD MANAGER [address] [place] [address] PCP - General Internal Medicine 10/18/22 Ismael Kidd (Rn)(Hist), RN Specialty Returned Goods Inspector Hematology/Oncology 08/30/17 Quin Nolan DO [address] [place], [place] [address] Hospice Physician Peripheral Vascular 01/26/19 Jennifer Arias MD [address] [address] Physician Internal Medicine 02/11/19 Andrez Pitts DO [address] [place] [id number] Gastroenterology 11/21/23 Kenya Garcia MD [address] [place] [address] General Surgery 09/15/24 Sidney Joya MD [address] [place] [address] Radiation Oncology 09/16/24 Fredi Jones MD [address] [facility] [address] [place] [address] Cardiology 09/16/24 Sarah Pearson PA-C [address] [place] [address] Rheumatology 09/16/24 Raul Hendrix LISW [address] [place] [address] Veterinary Assistant Technician Hematology/Oncology 09/18/24 Josh Bennett DO [address] [place], [place] [address] Hematology/Oncology 09/25/24 Roxanne Bland RN Specialty Returned Goods Inspector Oncology 09/25/24 Team Status: Inactive Member Role/Relationship Status Dates Julio Arriaga NP, GEOLOGY ASSOCIATE-C Primary Care Provider Active Start: October 30, [...] End: December 27, 2024 Julio Arriaga NP, GEOLOGY ASSOCIATE-C Primary Care Provider Active Start: December 27, 2024 End: December 27, 2024 Team Status: Inactive Member Role/Relationship Status Dates Michelle Baker NP-C Attending Provider Active Start: January 14, 2025 End: January 14, 2025 Julio Arriaga NP, GEOLOGY ASSOCIATE-C Primary Care Provider Active Start: January 14, 2025 End: January 14, 2025 Julio Arriaga NP, GEOLOGY ASSOCIATE-C Referring Provider Active Start: January 14, 2025 End: January 14, 2025 Team Status: Inactive Member Role/Relationship Status Dates Julio Arriaga NP, GEOLOGY ASSOCIATE-C Primary Care Provider Active Start: January 26, 2025 Dr. Sabina Scott MD Attending Provider Active Start: January 26, 2025 Team Status: Inactive Member Role/Relationship Status Dates Julio Arriaga GEOLOGY ASSOCIATE, GEOLOGY ASSOCIATE-C Primary Care Provider Active Start: February 02, 2025 End: February 02, 2025 Julio Arriaga GEOLOGY ASSOCIATE, GEOLOGY ASSOCIATE-C Referring Provider Active Start: February 02, 2025 End: February 02, 2025 Michelle Baker NP-C Attending Provider Active Start: February 02, 2025 End: February 02, 2025 Team Status: Inactive Member Role/Relationship Status Dates Julio Arriaga GEOLOGY ASSOCIATE, GEOLOGY ASSOCIATE-C Primary Care Provider Active Start: February 09, 2025 End: February 09, 2025 Julio Arriaga GEOLOGY ASSOCIATE, GEOLOGY ASSOCIATE-C Referring Provider Active Start: February 09, 2025 End: February 09, 2025 Dr. Kenya Garcia MD Attending Provider Active Start: February 09, 2025 End: February 09, 2025 Team Status: Inactive Member Role/Relationship Status Dates Julio Arriaga GEOLOGY ASSOCIATE, GEOLOGY ASSOCIATE-C Primary Care Provider Active Start: February 27, [...] 2024 End: December 27, 2024 Julio Arriaga GEOLOGY ASSOCIATE, GEOLOGY ASSOCIATE-C Primary Care Provider Active Start: December 27, 2024 End: December 27, 2024 Team Status: Inactive Member Role/Relationship Status Dates Michelle Baker NP-C Attending Provider Active Start: January 14, 2025 End: January 14, 2025 Julio Arriaga GEOLOGY ASSOCIATE, GEOLOGY ASSOCIATE-C Primary Care Provider Active Start: January 14, 2025 End: January 14, 2025 Julio Arriaga GEOLOGY ASSOCIATE, GEOLOGY ASSOCIATE-C Referring Provider Active Start: January 14, 2025 End: January 14, 2025 Team Status: Inactive Member Role/Relationship Status Dates Julio Arriaga GEOLOGY ASSOCIATE, GEOLOGY ASSOCIATE-C Primary Care Provider Active Start: January 26, 2025 Dr. Sabina Scott MD Attending Provider Active Start: January 26, 2025 Team Status: Inactive Member Role/Relationship Status Dates Julio Arriaga GEOLOGY ASSOCIATE, GEOLOGY ASSOCIATE-C Primary Care Provider Active Start: February 02, 2025 End: February 02, 2025 Julio Arriaga GEOLOGY ASSOCIATE, GEOLOGY ASSOCIATE-C Referring Provider Active Start: February 02, 2025 End: February 02, 2025 Michelle Baker NP-C Attending Provider Active Start: February 02, 2025 End: February 02, 2025 Team Status: Inactive Member Role/Relationship Status Dates Julio Arriaga GEOLOGY ASSOCIATE, GEOLOGY ASSOCIATE-C Primary Care Provider Active Start: February 09, 2025 End: February 09, 2025 Julio Arriaga GEOLOGY ASSOCIATE, GEOLOGY ASSOCIATE-C Referring Provider Active Start: February 09, 2025 End: February 09, 2025 Dr. Kenya Garcia MD Attending Provider Active Start: February 09, 2025 End: February 09, 2025 Team Status: Inactive Member Role/Relationship Status Dates Julio Arriaga GEOLOGY ASSOCIATE, GEOLOGY ASSOCIATE-C Primary Care Provider Active Start: February 27, 2025 End: February 27, 2025 Dr. Pawel Cason MD Emergency Provider Active Sta rt: February 27, 2025 End: February 27, 2025 Team Status: Inactive Member Role/Relationship Status Dates Julio Arriaga GEOLOGY ASSOCIATE, GEOLOGY ASSOCIATE-C Primary Care Provider Active Start: March 02, 2025 End: March 02, 2025 Dr. Kenya Garcia MD Attending Provider Active Start: March 02, 2025 End: March 02, 2025 Dr. Kenya Garcia MD Referring Provider Active Start: March 02, 2025 End: March 02, 2025 Team Status: Active Member Role/Relationship Status Dates Julio Arriaga GEOLOGY ASSOCIATE, GEOLOGY ASSOCIATE-C Primary Care Provider Active Start: March 02, 2025 Dr. Kenya Garcia MD Attending Provider Active Start: March 02, 2025 Dr. Kenya Garcia MD Referring Provider Active Start: March 02, 2025 Dr. Kenya Garcia MD Other Provider Active St art: March 02, 2025 Team Status: Inactive Member Role/Relationship Status Dates Julio Arriaga GEOLOGY ASSOCIATE, GEOLOGY ASSOCIATE-C Primary Care Provider Active Start: February 27, 2025 End: February 27, 2025 Dr. Pawel Cason MD Attending Provider Active Sta rt: February 27, 2025 End: February 27, 2025 Dr. Pawel Cason MD Emergency Provider Active Sta rt: February 27, 2025 End: February 27, 2025 Team Status: Inactive Member Role/Relationship Status Dates Julio Arriaga NP, GEOLOGY ASSOCIATE-C Primary Care Provider Active Start: March 16, 2025 End: March 16, 2025 Julio Arriaga NP, GEOLOGY ASSOCIATE-C Referring Provider Active Start: March 16, 2025 End: March 16, 2025 [facility] Carl Attending Provider Active Start: March 16, 2025 End: March 16, 2025 Splitter Machine Relationship Specialty Start Date End Date Julio Arriaga, PUNCHING MACHINE OPERATOR.[facility] [address] [place] [address] PCP - General Internal Medicine 10/18/22 Ismael Kidd (Rn)(Hist), RN Specialty Returned Goods Inspector Hematology/Oncology 08/30/17 Quin Nolan DO [address] [place], [place] [id number] Hospice Physician Peripheral Vascular 01/26/19 Jennifer Arias MD [address] [address] Physician Internal Medicine 02/11/19 Andrez Pitts DO [address] [address] Gastroenterology 11/21/23 Kenya Garcia MD [address] [place] [address] General Surgery 09/15/24 Sidney Joya MD [address] [place], [place] [id number] Radiation Oncology 09/16/24 Fredi Jones MD [address] [facility] [address] [place] [address] Cardiology 09/16/24 Sarah Pearson PA-C [address] [place], [place] [id number] Rheumatology 09/16/24 Raul Hendrix LISW [address] [place] [address] Veterinary Assistant Technician Hematology/Oncology 09/18/24 Josh Bennett DO [address] [place] [address] Hematology/Oncology 09/25/24 Roxanne Bland RN Specialty Returned Goods Inspector Oncology 09/25/24 Splitter Machine Relationship Specialty Start Date End Date Julio Arriaga, PUNCHING MACHINE OPERATOR.QUAL FIELD MANAGER [address] [place] [id number] PCP - General Internal Medicine 10/18/22 Ismael Kidd (Rn)(Hist), RN Specialty Returned Goods Inspector Hematology/Oncology 08/30/17 Quin Nolan DO [address] [place], [place] [address] Hospice Physician Peripheral Vascular 01/26/19 Jennifer Arias MD [address] [facility] [address] [place], [place] [address] Physician Internal Medicine 02/11/19 Andrez Pitts DO [address] [place], [place] [address] Gastroenterology 11/21/23 Kenya Garcia MD [address] [place] [address] General Surgery 09/15/24 Sidney Joya MD [address] [place] [address] Radiation Oncology 09/16/24 Fredi Jones MD [address] [facility] [address] [place] [address] Cardiology 09/16/24 Sarah Pearson PA-C [address] [place] [address] Rheumatology 09/16/24 Raul Hendrix LISW [address] [place] [address] Veterinary Assistant Technician Hematology/Oncology 09/18/24 Josh Bennett DO [address] [place] [address] Hematology/Oncology 09/25/24 Roxanne Bland, LÓPEZ Specialty Returned Goods Inspector Oncology 09/25/24 Care Team (unrecognized sect ion and content) Care Team Personnel Name: SELENE PIERRE MD Member Role: Primary Care Physician Address: Address: [address] [place] [address]- Care Team Related Persons Name: TAYLOR HILL Name: MAGDA BORJAS Address: [facility] Care Team Personnel Name: SELENE PIERRE MD Member Role: Primary Care Physician Address: Address: [address] [place] [address] Care Team Related Persons Name: TAYLOR HILL Name: MAGDA BORJAS Address: [facility] Goals (unrecognized section and content) Goals may [...] BE BASED ON THE PRIMARY CLINICAL RECORDS. [facility]. provides no warranty or guarantee of the accuracy or completeness of information in this document.
[2025-03-27 19:47] VITALS: BMI 30.9
[2025-03-27] MEDS: Dext 5%-0.45% NS 1,000 ML 75 ML IV (20:05)
[2025-03-27 20:15] VITALS: BP 148/68; PULSE 68; RESP 16; TEMP 36.1; O2SAT 95
[2025-03-27] MEDS: Glycerin/Hypromellose/PEG400 15 ml Bottle 1 DRP OPHTHALMIC (21:55)
[2025-03-27] MEDS: APIXABAN 5 MG TABLET PO (21:56)
[2025-03-27] MEDS: buPROPion (SR) 150 MG Tablet.SA PO (21:57)
[2025-03-28 05:22] VITALS: BMI 29.5
[2025-03-28] MEDS: metroNIDAZOLE 500 MG/100 ML BAG 100 MG IV ×3 (05:31→21:55)
[2025-03-28 05:42] VITALS: BP 142/94; PULSE 75; RESP 16; TEMP 36.3; O2SAT 92
[2025-03-28 06:24] LABS: Hematocrit 33.9 % (37-47); Hemoglobin 10.5 g/dL (12.0-15.0); Immature Granulocytes Count 0.010 X10^3/uL (0.0-0.0); Mean Corp Hgb Conc 31.0 g/dL (32-36); Mean Corpuscular Volume 89.4 fL (81-99); Mean Platelet Vol. 11.4 fl (6.2-12.0); NRBC Flagged by Analyzer 0 % (0-5); POSITIVE DIFFERENTIAL YES; Platelet Count 182 K/mm3 (150-450); RBC Distribution Width CV 14.3 % (11.6-14.6); RBC Distribution Width SD 46.9 fl (35.1-43.9); Red Blood Count 3.79 M/mm3 (4.2-5.4); White Blood Count 2.8 K/mm3 (4.4-11.0)
[2025-03-28 07:08] LABS: Anion Gap 10 (5-15); BUN 6 mg/dL (4-19); BUN/Creat Ratio 9.2 RATIO (10-20); Calcium,Total 8.4 mg/dL (7.6-11.0); Carbon Dioxide 22.1 mmol/L (21.0-32.0); Chloride 105 mmol/L (98-108); Estimated Creatinine Clearance 65.50 ml/min (50-250); Glucose 108 mg/dL (70-99); Potassium 3.7 mmol/L (3.3-5.1)
--- NOTE | 2025-03-28 07:42 | PN.HOSP_ITS ---
Reason for Visit Chief Complaint: Abdominal pain mainly right upper quadrant, diarrhea, dysphagia/multiple complaints, acute on chronic. Subjective Subjective Still with abdominal pain. Has been having nausea and vomiting for months as has restricted her input to the point that she only able to take in liquids. Objective Data Objective Data Vital Signs: Vital Signs Temp Pulse Resp BP Pulse Ox O2 Del Method 36.3 C L 75 16 142/94 H 92 Room Air 03/28/25 05:42 03/28/25 05:42 03/28/25 05:42 03/28/25 05:42 03/28/25 05:42 03/28/25 05:42 Oxygen Delivery Method Room Air Weight: 72.8 kg Body Mass Index (BMI) 29.5 Intake & Output: Intake and Output for Last 24 Hours 03/26/25 03/27/25 03/28/25 23:59 23:59 23:59 Intake Total 1300 / 1500 300 / 300 Balance 1300 / 1500 300 / 300 Lab / Micro Data 03/28/25 05:11 03/28/25 05:11 Labs: Laboratory Results - last 24 hr 03/27/25 16:27: WBC 3.3 L, RBC 3.66 L, Hgb 10.5 L, Hct 36.0 L, MCV 98.4, MCH 28.7, MCHC 29.2 L, RDW Std Deviation 69.2 H, RDW Coeff of Pepe 23.9 H, Plt Count 110 L, MPV 12.8 H, Immature Gran % (Auto) 0.300, Neut % (Auto) 70.5 H, Lymph % (Auto) 11.9 L, [place] % (Auto) 13.4 H, Eos % (Auto) 2.7, Baso % (Auto) 1.2 H, Absolute Neuts (auto) 2.3, Absolute Lymphs (auto) 0.39 L, Nucleated RBC % 0, Differential Comment SCANNED, RBC Morphology N CHROM, Polychromasia RARE, Anisocytosis 1+, Macrocytosis RARE, [place] Cells RARE, Sodium Cancelled, Potassium Cancelled, Chloride Cancelled, Carbon Dioxide Cancelled, Anion Gap Cancelled, BUN Cancelled, Creatinine Cancelled, Estim Creat Clear Calc Cancelled, Est GFR (MDRD) Non-Af Cancelled, BUN/Creatinine Ratio Cancelled, Glucose Cancelled, Calcium Cancelled, Total Bilirubin Cancelled, Direct Bilirubin Cancelled, AST Cancelled, ALT Cancelled, Alkaline Phosphatase Cancelled, Total Protein Cancelled, Albumin Cancelled, Globulin Cancelled, Lipase Cancelled 03/27/25 16:30: Urine Color Straw, Urine Clarity Clear, Urine pH 6.5, Ur Specific [place] 1.010, Urine Protein Negative, Urine Glucose (UA) Normal, Urine Ketones Negative, Urine Occult Blood Negative, Urine Nitrite Negative, Urine Bilirubin Negative, Urine Urobilinogen Normal, Ur Leukocyte Esterase Negative, Urine RBC 0 SEEN, Urine WBC 0-5 SEEN, Ur Squamous Epith Cells 0-5 SEEN, Urine Bacteria RARE, Urine Mucus 0 SEEN 03/27/25 16:55: Sodium 134, Potassium 4.1, Chloride 102, Carbon Dioxide 22.2, Anion Gap 10, BUN 8, Creatinine 0.61 L, Estim Creat Clear Calc 66.80, Est GFR (MDRD) Non-Af 99, BUN/Creatinine Ratio 12.9, Glucose 83, Calcium 8.8, Total Bilirubin 0.26, Direct Bilirubin 0.12, AST 24, ALT 10, Alkaline Phosphatase 78, Total Protein 6.4, Albumin 3.6, Globulin 2.7, Lipase 23 03/28/25 05:11: WBC 2.8 L, RBC 3.79 L, Hgb 10.5 L, Hct 33.9 L, MCV 89.4 D, MCH 27.7, MCHC 31.0 L D, RDW Std Deviation 46.9 H, RDW Coeff of Pepe 14.3, Plt Count 182, MPV 11.4, Immature Gran % (Auto) 0.400, Neut % (Auto) 58.9, Lymph % (Auto) 18.4 L, [place] % (Auto) 15.2 H, Eos % (Auto) 5.7 H, Baso % (Auto) 1.4 H, Absolute Neuts (auto) 1.7 L, Absolute Lymphs (auto) 0.52 L, Nucleated RBC % 0, Sodium 137, Potassium 3.7, Chloride 105, Carbon Dioxide 22.1, Anion Gap 10, BUN 6, C reatinine 0.61 L, Estim Creat Clear Calc 65.50, Est GFR (MDRD) Non-Af 99, B UN/Creatinine Ratio 9.2 L, Glucose 108 H, Calcium 8.4 Radiography Diagnostic Testing: Radiology Impression Abdomen/Pelvis CT 03/27/25 17:07 IMPRESSION: Diverticulitis and/or proctitis involving distal sigmoid colon proximal rectum Reading Location: [facility] Rhythm Strip Rhythm Strip: Sinus Rhythm Rate: 71 Ectopy: PVC(s) Physical Exam Const alert Constitutional Narrative: up in chair. afebrile. non-toxic. HEENT head/scalp atraumatic and moist oral mucous membranes Resp normal respiratory effort, no retractions, no use of accessory muscles and clear to auscultation bilaterally Cardio regular rate, regular rhythm, S1 normal heart sound and S2 normal heart sound GI GI Narrative: non-distended. tender through out. no rebound. Neuro Sensorium / Orientation: awake and alert Assessment & Plan Assessment/Plan (1) Diverticulitis of sigmoid colon: PLAN: Noted on CT with sigmoid diverticulitis and proctitis. Abx CTX and metronidazole (2) Nausea and vomiting: PLAN: ongoing for some time. Pt was to have an outpt gastric emptying study (GES) and EGD. GI has been consulted. Pt with ongoing symptoms and has lost considerable weight recently (is lost roughly 10 kg just this month) Will order GES Cannot rule out gastroparesis. (3) Protein calorie malnutrition: PLAN: Severe. Patient has lost roughly 10 kg this month. Gastroparesis workup underway. Further recommendations from nutrition. PLAN: Plan Chronic diarrhea/abdominal pain possible chronic IBS and dysphagia: * Patient follows in GI office with Dr. Pitts and Michelle Baker. She had random colonic biopsy, terminal ileum biopsy which were reported no pathologic diagnosis. Noninvasive workup for chronic pancreatic insufficiency and Crohn's disease was also negative and she did not respond with Creon and budesonide. Symptomatic management. Speech therapy evaluation. * Anal cancer status post chemoradiation in remission: Patient had flexible sigmoidoscopy with biopsy by Dr. Garcia in February 2025. It was negative for malignancy. Biopsy showed benign squamous mucosa with hyperkeratosis * Chronic psoriatic arthritis, Sjogren disease, lumbar spondylosis, osteoporosis: Patient uses cane for walking. PT and OT. Outpatient follow-up with wire drawing machine operator * Chronic HFpEF, CAD, hypertension and dyslipidemia: Currently patient does not have any chest pain or shortness of breath. Twelve-lead EKG done in the ED shows NSR 71 beats minute, occasional PVC, LVH with repolarization abnormality. QTc 452 ms. * Possible history of COPD: Former smoker quit in July 2013. DuoNeb as needed. Incentive spirometry. No acute issues of COPD exacerbation * Chronic normocytic normochromic anemia: H&H 10.5/36% on baseline. Her hemoglobin ranges from 9 to 10 g%. DVT prophylaxis, high risk: Lovenox 40 mg subcu daily. Bilateral SCDs. Charges/Coding Visit Charges Inpatient E&M: 80011 Subs Hosp L2
[2025-03-28] MEDS: Glycerin/Hypromellose/PEG400 15 ml Bottle 1 DRP OPHTHALMIC ×4 (08:04→21:54)
[2025-03-28] MEDS: Fluticasone 0.05% 1 SPRAY NASAL.SRY 2 SPRAY NASAL (08:05)
[2025-03-28] MEDS: APIXABAN 5 MG TABLET PO ×2 (08:05→21:54)
[2025-03-28 08:49] VITALS: BP 153/99; PULSE 85; RESP 16; TEMP 36.8; O2SAT 94
[2025-03-28 12:02] VITALS: BP 154/73; PULSE 81; RESP 16; TEMP 36.6; O2SAT 94
--- NOTE | 2025-03-28 12:57 | NM_ITS ---
PROCEDURE: GASTRIC EMPTYING STUDY 03/30/2025 REASON FOR EXAM: NAUSEA AND VOMITING. COMPARISON: None TECHNIQUE: Nuclear medicine gastric emptying study, 1.2 mCi sulfur colloid in oatmeal, 1 hour study FINDINGS: There is a normal distribution of radiotracer activity. Percent activity remaining in stomach: T1 half = 89.85 minutes. There is 40% emptying at 1 hour. NM/Gastric Emptying Study IMPRESSION: T1 half = 89.85 minutes, which is in the normal range. Reading Location: [facility]
--- NOTE | 2025-03-28 14:22 | EX.PCM.CON.G ---
HPI Consult Data Date of Consult: 03/29/25 HPI Narrative Reason for Consultation: diverticulitis HPI Narrative: DEWEY HORTA, is a 64 F who originally presented to transfer care from another GI practice in 2022. She has chronic nausea, chronic diarrhea. In 2018 she had fundoplication for very large hiatal hernia that was in her chest and was causing dyspnea, surgery was done at [facility]. Her surgeon sent her to [facility] for chronic nausea which began after fundoplication, which isn't only post-prandial, gets dry heaves, relieved with phenergan--takes it 1-2x every day. Has nausea most days. Has poor appetite so only eats once a day. Has lost 30 lbs unintentionally in past 4 months. Has early satiety. One hour after eating she has diarrhea. Stool is always loose, never formed, this started about 6 mos ago. She denies any melena or hematochezia. Rare nocturnal diarrhea. She gets painful abdominal cramps before diarrhea. If she took hyoscyamine before eating, then it helped minimize the diarrhea. No relief with dicyclomine. She had not been on cholestyramine or colestipol. She has a past medical history of rheumatoid arthritis and Sjogren syndrome currently on Orencia therapy. In the workup of her chronic diarrhea we did biochemical testing that it showed 3 out of 5 markers for Crohn's disease with aggressive activity. She did undergo an upper endoscopy and lower colonoscopy. There was no gross inflammation seen in the upper or lower GI tract. This was confirmed by biopsies of the duodenum, stomach and randomly through the colon and terminal ileum. She still continues to have diarrhea. Most of which is postprandial. We gave her colestipol before a previous diagnosis of dumping syndrome that was given to her several years ago. She also has a strong family history of inflammatory bowel disease in her mother that has ulcerative colitis. We checked her stools for alpha-1 antitrypsin. Those levels were normal which confirms that she does not have a protein-losing enteropathy. We started her on empiric budesonide 6 mg a day. We will order MR enterography to see if there is any mucosal changes that cannot be seen on capsule endoscopy or optical colonoscopy. Her capsule endoscopy was a very poor prep. MR enterography displayed findings may represent infectious versus inflammatory enteritis. No stricture, fistula, or obstruction. No drainable fluid collections. I thought that she was experiencing more irritable bowel syndrome associated diarrhea and her nerves also affected her bowels. I put her on alprazolam and she is significantly improved and regarding her frequency of bowel movements on a daily basis. She presented to the [place] emergency department in August [address] scan was performed and confirmed a fairly sizable right sided perirectal abscess. She underwent surgical procedure by Dr. Garcia. Perianal mass, biopsy: Focal area of moderately differentiated invasive squamous cell carcinoma. Extensive squamous cell carcinoma in situ. 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 She was seen by oncology and chemotherapy/radiation was recommended. She presented to the ER with worsening right sided abdominal pain nausea vomiting. Patient states her symptoms have been going on for months but they became particularly severe yesterday. CT/Abdomen/Pelvis W IV Cont ONLY IMPRESSION: Diverticulitis and/or proctitis involving distal sigmoid colon proximal rectum [facility] Medical History Nausea and vomiting Pancreatic insufficiency Crohn disease Cancer Walker as ambulation aid DVT (deep venous thrombosis) Gastric reflux 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 Mass of anus Perirectal abscess History of Crohn's disease Psoriatic arthritis Psoriasis Internal derangement of right knee Wears glasses Post-menopausal Depression Anxiety Ambulates with cane Injury of back Difficulty swallowing History of IBS History of hiatal hernia Former smoker Shortness of breath on exertion Chronic cough History of echocardiogram History of stress test Hypertension Cardiology follow-up encounter History of CHF (congestive heart failure) History of irregular heartbeat Acute pharyngitis, unspecified URI (upper respiratory infection) Contact with or suspected exposure to other viral communicable disease History of partial replacement of left hip joint using bipolar prosthesis Vitamin D deficiency HLD (hyperlipidemia) Insomnia Dry eye Regular astigmatism, bilateral PVCs (premature ventricular contractions) Coronary artery stenosis Chronic diastolic CHF (congestive heart failure) Iron malabsorption Osteoarthritis Lumbar spondylosis Osteoporosis Congenital cataract Intermittent palpitations Nausea TIA (transient ischemic attack) Acute maxillary sinusitis, unspecified Acute ethmoidal sinusitis, unspecified Acute frontal sinusitis, unspecified COPD exacerbation Foreign body in conjunctival sac, left eye, initial encounter Acute bacterial conjunctivitis Influenza A Acute bronchitis Back pain Limb weakness Asthma Anemia Arthritis Home Medications ?Medication ?Instructions ?Recorded ?Last Taken ?Type albuterol sulfate 90 mcg/actuation 2 puff inhalation Q4H PRN PRN 03/13/15 Unknown History aerosol inhaler Shortness Of Breath fluoxetine 20 mg capsule 60 mg PO QHS MENTAL HEALTH 12/13/15 09/01/24 History peg [id number] 1 1 drp OP 4X/DAY DRY EYES 11/13/17 03/19/24 History %-0.2 %-0.2 % eye drops (Dry Eye Relief) leflunomide 20 mg tablet (Arava) 20 mg PO QHS RA 03/22/18 09/01/24 History amlodipine 5 mg tablet 7.5 mg PO DAILY BP 08/15/22 03/02/25 06:30 History mometasone 50 mcg/actuation nasal 2 spray intranasal DAILY ALLERGIES 08/15/22 09/01/24 History spray abatacept 50 mg/0.4 mL 50 mg subcut QMONTH RA 12/17/22 02/18/25 History subcutaneous syringe (Orencia) acetaminophen 500 mg tablet 1,000 mg PO Q6H PRN fever or pain 11/15/23 09/01/24 History atorvastatin 80 mg tablet 80 mg PO QHS CHOLESTEROL 11/15/23 09/01/24 History meclizine 25 mg tablet 25 mg PO QHS PRN PRN dizziness 03/17/24 03/02/25 06:30 History bupropion HCl (smoking deter) 150 150 mg PO QHS DEPRESSION 09/02/24 09/01/24 History mg tablet,12 hr sustained-release(smoking deterrent) cholecalciferol (vitamin D3) 1,250 1,250 mcg PO Q14D REPLACEMENT 10/24/24 Unknown History mcg (50,000 unit) capsule furosemide 20 mg tablet 20 mg PO DAILY WATER PILL 10/24/24 Unknown History alprazolam 1 mg tablet 1 mg PO TID ANXIETY 30 days #90 12/02/24 Unknown Rx tabs diphenoxylate-atropine 2.5 1 tab PO TID PRN diarrhea #90 tabs 02/02/25 Unknown Rx mg-0.025 mg tablet (Lomotil) tramadol 50 mg tablet 50 mg PO Q6H PRN PRN pain 02/24/25 Unknown History prochlorperazine maleate 10 mg 10 mg PO TID PRN nausea and 03/16/25 Unknown Rx tablet (Compazine) vomiting #30 tabs apixaban 5 mg tablet (Eliquis) 5 mg PO BID HX DVT, CAROTID ARTERY 03/27/25 Unknown History DISEASE primidone 50 mg tablet 100 mg PO QHS TREMORS 03/27/25 Unknown History Allergy/AdvReac Type Severity Reaction Status Date / Time doxycycline calcium (From Allergy Anaphylaxis Verified 03/27/25 14:59 Vibramycin) doxycycline hyclate (From Allergy Anaphylaxis Verified 03/27/25 14:59 Vibramycin) doxycycline monohydrate Allergy Anaphylaxis Verified 03/27/25 14:59 (From Vibramycin) NSAIDS (Non-Steroidal Allergy Anaphylaxis Verified 03/27/25 14:59 Anti-Inflamma duloxetine (From Cymbalta) AdvReac HEADACHE Verified 03/27/25 14:59 AND UPSET STOMACH hydrocodone bitartrate (From AdvReac STOMACH Verified 03/27/25 14:59 Vicodin) UPSET hydromorphone HCl (From AdvReac Vomiting Verified 03/27/25 14:59 Dilaudid) morphine AdvReac Vomiting Verified 03/27/25 14:59 Family History Mother Asthma Hypertension Kidney disease Father Asthma Myocardial infarction Daughter Asthma Diabetes Hypertension Sister Asthma Hypertension Surgical History History of left hip replacement History of total right knee replacement (TKR) S/P total knee arthroplasty Hx of esophagogastroduodenoscopy History of cardiac catheterization S/P repair of paraesophageal hernia History of Vanessa fundoplication H/O adenoidectomy History of tonsillectomy H/O hernia repair History of total left knee replacement Hx of section H/O shoulder surgery Social History household members: family housing: house Smoking Status: Former smoker quit date: 07/29/13 alcohol intake: never substance use type: does not use ROS ROS Narrative Constitutional: Reports chronic fatigue and weakness. No fever. HEENT: Reports systems reviewed and no addt'l complaints, except as documented Respiratory/Chest: No acute shortness of breath or respiratory distress or wheezing. CVS: No chest pain/shortness of breath. Gastrointestinal: No hematemesis or GI bleed. Rest as described in HPI Genitourinary: Denies burning urination or new urinary tract symptoms Musculoskeletal: Uses cane. Denies acute joint pain or limited range of motion. No acute injury Neurologic: Denies seizure-like symptoms. skin: No ulcer. No rash Endocrinology: Reports systems reviewed and no addt'l complaints, except as documented Hematologic/Lymphatic: Reports systems reviewed and no addt'l complaints, except as documented Rest 14 ROS are negative except as mentioned in HPI Physical Exam Narrative General: Alert, Oriented x3, Cooperative HEENT: Atraumatic, PERRLA, EOMI, Normocephalic. Oral: Oral mucosa very dry. No Gingival or Mucosal Lesions/ Ulcerations Neck: Supple, No JVD, Negative Carotid Bruits Chest wall/Lungs: Right upper chest Mediport. Air entry diminished in bilateral lung bases. No crepitation/rhonchi Cardiovascular: Regular rate and rhythm, Normal S1,S2, No M/G/R Abdomen: Bowel Sounds Present, Soft, tenderness present in right upper quadrant/epigastric region. Non-Distended : No dysuria. No renal angle tenderness. No suprapubic tenderness. Extremities: No edema, Capillary Refill Less than 3 Seconds Skin: No rashes, No breakdown Musculoskeletal: No Tenderness to Palpation of Joints or Extremities Neurological: Cranial nerves II-XII grossly intact, DTR 2+/4. No acute focal neurological deficit. Psych/Mental Status: Normal Affect, Appropriate. Medical Records Data Medical Nutrition Assessment Dietitian: Malnutrition Criteria Met Start: 03/28/25 11:39 Freq: Status: Active Protocol: Document 03/28/25 11:39 (Rec: 03/28/25 11:39 [id number]) Nutrition Malnutrition Evidence of Yes Malnutrition Exists Malnutrition (severe Acute Illness/Injury ): Evidenced By Suboptimal Energy Intake (Severe),Weight Loss (Severe) Clinical Problem Acute Disease or Injury Related Malnutrition Etiology severe related to nausea/vomiting Signs/Symptoms as evidenced by 20.7lbs (11.4%) weight loss in 1 month and PO intakes <75% of estimated nutrition needs for ~1 month Status Active Problem Recommendation Dietitian Advance diet as tolerated to Low Fiber as medically Recommendations/ able to manage medical conditions. Changes Will order 240mL Ensure Clear mixed tanner TID with meals to provide supplemental energy. Recommend Ensure Plus High Protein when diet advances. Lab / Micro Data 03/29/25 05:45 03/29/25 05:45 Labs: Laboratory Results - last 24 hr 03/27/25 16:27: WBC 3.3 L, RBC 3.66 L, Hgb 10.5 L, Hct 36.0 L, MCV 98.4, MCH 28.7, MCHC 29.2 L, RDW Std Deviation 69.2 H, RDW Coeff of Pepe 23.9 H, Plt Count 110 L, MPV 12.8 H, Immature Gran % (Auto) 0.300, Neut % (Auto) 70.5 H, Lymph % (Auto) 11.9 L, [place] % (Auto) 13.4 H, Eos % (Auto) 2.7, Baso % (Auto) 1.2 H, Absolute Neuts (auto) 2.3, Absolute Lymphs (auto) 0.39 L, Nucleated RBC % 0, Differential Comment SCANNED, RBC Morphology N CHROM, Polychromasia RARE, Anisocytosis 1+, Macrocytosis RARE, [place] Cells RARE, Sodium Cancelled, Potassium Cancelled, Chloride Cancelled, Carbon Dioxide Cancelled, Anion Gap Cancelled, BUN Cancelled, Creatinine Cancelled, Estim Creat Clear Calc Cancelled, Est GFR (MDRD) Non-Af Cancelled, BUN/Creatinine Ratio Cancelled, Glucose Cancelled, Calcium Cancelled, Total Bilirubin Cancelled, Direct Bilirubin Cancelled, AST Cancelled, ALT Cancelled, Alkaline Phosphatase Cancelled, Total Protein Cancelled, Albumin Cancelled, Globulin Cancelled, Lipase Cancelled 03/27/25 16:30: Urine Color Straw, Urine Clarity Clear, Urine pH 6.5, Ur Specific [place] 1.010, Urine Protein Negative, Urine Glucose (UA) Normal, Urine Ketones Negative, Urine Occult Blood Negative, Urine Nitrite Negative, Urine Bilirubin Negative, Urine Urobilinogen Normal, Ur Leukocyte Esterase Negative, Urine RBC 0 SEEN, Urine WBC 0-5 SEEN, Ur Squamous Epith Cells 0-5 SEEN, Urine Bacteria RARE, Urine Mucus 0 SEEN 03/27/25 16:55: Sodium 134, Potassium 4.1, Chloride 102, Carbon Dioxide 22.2, Anion Gap 10, BUN 8, Creatinine 0.61 L, Estim Creat Clear Calc 66.80, Est GFR (MDRD) Non-Af 99, BUN/Creatinine Ratio 12.9, Glucose 83, Calcium 8.8, Total Bilirubin 0.26, Direct Bilirubin 0.12, AST 24, ALT 10, Alkaline Phosphatase 78, Total Protein 6.4, Albumin 3.6, Globulin 2.7, Lipase 23 03/28/25 05:11: WBC 2.8 L, RBC 3.79 L, Hgb 10.5 L, Hct 33.9 L, MCV 89.4 D, MCH 27.7, MCHC 31.0 L D, RDW Std Deviation 46.9 H, RDW Coeff of Pepe 14.3, Plt Count 182, MPV 11.4, Immature Gran % (Auto) 0.400, Neut % (Auto) 58.9, Lymph % (Auto) 18.4 L, Snyder % (Auto) 15.2 H, Eos % (Auto) 5.7 H, Baso % (Auto) 1.4 H, Absolute Neuts (auto) 1.7 L, Absolute Lymphs (auto) 0.52 L, Nucleated RBC % 0, Sodium 137, Potassium 3.7, Chloride 105, Carbon Dioxide 22.1, Anion Gap 10, BUN 6, Creatinine 0.61 L, Estim Creat Clear Calc 65.50, Est GFR (MDRD) Non-Af 99, BUN/Creatinine Ratio 9.2 L, Glucose 108 H, Calcium 8.4 Rhythm Strip Rhythm Strip: Sinus Rhythm Rate: 71 Ectopy: PVC(s) Imaging Radiology Impression Abdomen/Pelvis CT 03/27/25 17:07 IMPRESSION: Diverticulitis and/or proctitis involving distal sigmoid colon proximal rectum [facility] Assessment & Plan Assessment/Plan (1) Epigastric abdominal pain: (2) Nausea and vomiting: (3) Diverticulitis of sigmoid colon: PLAN: Plan 64-year-old female with a history of anal cancer s/p pelvic radiation and RA on Abatacept, presenting with an acute flare of proctocolitis, likely due to chronic radiation-induced changes, but with important considerations for other etiologies.? She also has chronic dysphagia secondary to fundoplication and likely underlying motility disorder either from the fundoplication or previously undiagnosed prior to the fundoplication. Primary Diagnosis: Chronic Radiation Proctitis (CRP) Exacerbation:?This is the most likely cause, given her history of pelvic radiation for anal cancer. Radiation causes progressive inflammation, vasculitis, and fibrosis, which can manifest years after treatment. The patient's long-standing symptoms with a recent acute flare, including bleeding, are characteristic. CRP is common after pelvic radiotherapy and can be triggered by various factors, but in her case, immunosuppression from abatacept could also play a role. Differential Diagnoses: Inflammatory Bowel Disease (IBD) flare:?Although her chronic symptoms align with radiation injury, new or concurrent onset of IBD (e.g., Crohn's disease) is a possibility, especially with her RA history (an immune-mediated disease). Biopsy results from endoscopy would be crucial. Infectious Colitis:?The low-grade fever and acute worsening of diarrhea warrant an infectious workup.?Clostridioides difficile?infection is a significant concern given her immunosuppressed state. Other pathogens, including CMV (especially with immunosuppression) or bacterial causes, should be considered. Recurrence of Malignancy:?A recurrent or new malignancy must be excluded. Endoscopy with biopsies is critical, as a neoplasm can mimic radiation changes. Ischemic Colitis:?The obliterative vasculitis from chronic radiation can predispose to bowel ischemia, although her presentation is less acute. Plan Diagnostics: Stool Studies: C. difficile?PCR/toxin assay. Stool culture for bacteria (e.g.,?Salmonella,?Shigella,?Campylobacter). Stool ova and parasites. Stool for CMV Laboratory Studies: Complete Blood Count (CBC) with differential to assess for anemia (from chronic bleeding) and leukocytosis (from infection). Comprehensive Metabolic Panel (CMP) to evaluate electrolytes and kidney function, especially with diarrhea. C-reactive protein (CRP) and Erythrocyte Sedimentation Rate (ESR) to assess for systemic inflammation. Endoscopy: Flexible Sigmoidoscopy or Colonoscopy:?To visualize the mucosa, assess the extent and severity of inflammation, and obtain biopsies to differentiate CRP from IBD or malignancy. Therapeutics: Symptom Management: Continue supportive measures with hydration. Hold loperamide temporarily until infectious causes are ruled out. Consider topical therapies for proctitis symptoms, such as sucralfate enemas. RA Management: Consult with Rheumatology regarding the management of abatacept, especially if an infection is identified. Treatment based on findings: If?C. difficile?positive:?Start appropriate oral antibiotic (e.g., vancomycin or fidaxomicin). If CRP confirmation:?Manage with topical agents, consider hyperbaric oxygen therapy (if severe and refractory) Charges/Coding Visit Charges Inpatient E&M: 78087 Init Hosp L3
[2025-03-28 15:13] VITALS: BP 144/89; PULSE 74; RESP 16; TEMP 36.7; O2SAT 95
[2025-03-28 16:04] LABS: CRP < 3.00 mg/L (0.0-3.0)
[2025-03-28 21:44] VITALS: BP 145/72; PULSE 78; RESP 17; TEMP 37.1; O2SAT 94
[2025-03-28] MEDS: buPROPion (SR) 150 MG Tablet.SA PO (21:54)
[2025-03-28] MEDS: 0.9% Normal Saline (250mL Bag) 250 ML 15 ML IV (21:55)
[2025-03-28] MEDS: 0.9% Saline Lock 10 ML Syringe IV (21:59)
[2025-03-29 03:52] VITALS: BP 139/55; PULSE 73; RESP 16; TEMP 36.4; O2SAT 95
[2025-03-29 05:32] VITALS: BMI 30.1
[2025-03-29 05:57] LABS: Hematocrit 34.7 % (37-47); Hemoglobin 11.2 g/dL (12.0-15.0); Immature Granulocytes Count 0.010 X10^3/uL (0.0-0.0); Mean Corp Hgb Conc 32.3 g/dL (32-36); Mean Corpuscular Volume 88.3 fL (81-99); Mean Platelet Vol. 10.5 fl (6.2-12.0); NRBC Flagged by Analyzer 0 % (0-5); POSITIVE DIFFERENTIAL YES; Platelet Count 182 K/mm3 (150-450); RBC Distribution Width CV 14.1 % (11.6-14.6); RBC Distribution Width SD 46.5 fl (35.1-43.9); Red Blood Count 3.93 M/mm3 (4.2-5.4); White Blood Count 3.2 K/mm3 (4.4-11.0)
[2025-03-29] MEDS: metroNIDAZOLE 500 MG/100 ML BAG 100 MG IV ×3 (06:07→21:55)
[2025-03-29 06:56] LABS: Anion Gap 10 (5-15); BUN 4 mg/dL (4-19); BUN/Creat Ratio 7.9 RATIO (10-20); Calcium,Total 8.8 mg/dL (7.6-11.0); Carbon Dioxide 23.3 mmol/L (21.0-32.0); Chloride 104 mmol/L (98-108); Estimated Creatinine Clearance 66.12 ml/min (50-250); Glucose 99 mg/dL (70-99); Potassium 3.5 mmol/L (3.3-5.1)
[2025-03-29 09:36] VITALS: BP 145/55; PULSE 76; RESP 18; TEMP 36.6; O2SAT 98
[2025-03-29 09:40] VITALS: PULSE 76; RESP 18; O2SAT 98
[2025-03-29] MEDS: Fluticasone 0.05% 1 SPRAY NASAL.SRY 2 SPRAY NASAL (09:46)
[2025-03-29] MEDS: Glycerin/Hypromellose/PEG400 15 ml Bottle 1 DRP OPHTHALMIC ×4 (09:46→21:55)
[2025-03-29] MEDS: APIXABAN 5 MG TABLET PO ×2 (09:46→21:55)
[2025-03-29] MEDS: 0.9% Saline Lock 10 ML Syringe IV (10:18)
--- NOTE | 2025-03-29 12:28 | PN_ITS ---
Subjective Subjective Patient seen and examined. She had no active complaints. Her abdominal pain is improving. She only had one bowel movement earlier today, a sample of which was sent for the enteric panel. Review of systems is otherwise negative. She has remained hemodynamically stable. Objective Data Objective Data Vital Signs: Vital Signs Temp Pulse Resp BP Pulse Ox O2 Del Method 98 F 76 18 145/55 H 98 Room Air 03/29/25 09:36 03/29/25 09:40 03/29/25 09:40 03/29/25 09:36 03/29/25 09:40 03/29/25 09:40 Oxygen Delivery Method Room Air Weight: 163 lb 9.328 oz Body Mass Index (BMI) 30.1 Intake & Output: Intake and Output for Last 24 Hours 03/27/25 03/28/25 03/29/25 23:59 23:59 23:59 Intake Total 1300 / 1500 2300 / 2550 450 / 450 Balance 1300 / 1500 2300 / 2550 450 / 450 Medical Nutrition Assessment Dietitian: Malnutrition Criteria Met Start: 03/28/25 11:39 Freq: Status: Active Protocol: Document 03/28/25 11:39 LO (Rec: 03/28/25 11:39 LO [id number]) Nutrition Malnutrition Evidence of Yes Malnutrition Exists Malnutrition (severe Acute Illness/Injury ): Evidenced By Suboptimal Energy Intake (Severe),Weight Loss (Severe) Clinical Problem Acute Disease or Injury Related Malnutrition Etiology severe related to nausea/vomiting Signs/Symptoms as evidenced by 20.7lbs (11.4%) weight loss in 1 month and PO intakes <75% of estimated nutrition needs for ~1 month Status Active Problem Recommendation Dietitian Advance diet as tolerated to Low Fiber as medically Recommendations/ able to manage medical conditions. Changes Will order 240mL Ensure Clear mixed tanner TID with meals to provide supplemental energy. Recommend Ensure Plus High Protein when diet advances. Lab / Micro Data 03/29/25 05:45 03/29/25 05:45 Labs: Laboratory Results - last 24 hr 03/28/25 05:11: ESR 17, C-React Prot Ext Range < 3.00 03/29/25 05:45: WBC 3.2 L, RBC 3.93 L, Hgb 11.2 L, Hct 34.7 L, MCV 88.3, MCH 28.5, MCHC 32.3, RDW Std Deviation 46.5 H, RDW Coeff of Pepe 14.1, Plt Count 182, MPV 10.5, Immature Gran % (Auto) 0.300, Neut % (Auto) 68.2, Lymph % (Auto) 13.0 L, Green % (Auto) 13.9 H, Eos % (Auto) 3.1, Baso % (Auto) 1.5 H, Absolute Neuts (auto) 2.2, Absolute Lymphs (auto) 0.42 L, Nucleated RBC % 0, Sodium 137, Potassium 3.5, Chloride 104, Carbon Dioxide 23.3, Anion Gap 10, BUN 4, C reatinine 0.49 L, Estim Creat Clear Calc 66.12, Est GFR (MDRD) Non-Af 105, B UN/Creatinine Ratio 7.9 L, Glucose 99, Calcium 8.8 Rhythm Strip Rhythm Strip: Sinus Rhythm Rate: 71 Ectopy: PVC(s) Physical Exam Const alert, oriented x3 and no apparent distress General Appearance: cooperative and well developed HEENT normocephalic, moist oral mucous membranes, oropharynx normal and gingiva normal Eyes PERRL and EOMs intact bilaterally Neck no lymphadenopathy, supple and no JVD Lymph Lymphatic: no lymphedema noted Resp normal respiratory effort, normal air movement and clear to auscultation bilaterally Cardio regular rate, regular rhythm, S1 normal heart sound, S2 normal heart sound and no murmurs GI normal to inspection, nondistended, normoactive bowel sounds, soft to palpation, non-tender and non-distended Extremity normal capillary refill General Extremity: no tenderness to palpation of joints or extremities Skin General Skin Exam: no breakdown Neuro no focal motor deficits and no sensory deficits noted Coordination / Balance: [id number] test normal Motor Exam: general weakness Psych thought process normal, cooperative and affect normal Appearance: appropriate Assessment & Plan Assessment/Plan (1) Diverticulitis of sigmoid colon: PLAN: Plan #Diverticulitis of the sigmoid colon * admitted with a complaint of abdominal pain. CT abdomen showed sigmoid diveritulitis and proctitis * on metronidazole and ceftriaxone * had only one episode of bowel movement in the early hours of this morning; sample sent for enteric panel * GI on board. * GI is concerned about radiation induced injury to the rectum and colon. To have flexible sigmoidoscopy with biopsy to confirm radiation proctitis or otherwis mauro * #Chronic diarrhea, nausea and vomiting with abdominal pain and * GI on board. this is chronic. * follows up with GI on outpatient basis. Was scheduled to have outpatient gastric emptying study and EGD on outpatien basis * GI consulted.Has had random colonic biopsy, and noninvasive workup for chronic pancreatic insufficiency and Crohn's disease was negative. * Await GI evaluation. * #History of anal cancer: * s/p chemoradiation. In remission. Had flexible sigmoidoscopy with biopsy by Dr Garcia in 02/2025. * Biopsy was negative for malignancy and showed benign squamous mucosa with hyperkeratosis. * #Chronic psoriatic arthritis and Sjogren's disease: stable. PT/OT On board. To follow up with rheumatology on outpatient basis #History of chronic dysphagia: s/p Vanessa fundoplication. #HFpEF: not in exacerbation. #HYpertension: on amlodipine #HYperlipidemia: on statin #History of COPD: not in exacerbation. On breathing treatment with bronchodilators. #History of DVT: on eliquis/ DVT prophylaxis: eliquis already. * Charges/Coding Visit Charges Inpatient E&M: 49317 Subs Hosp L2
--- NOTE | 2025-03-29 13:12 | PN_ITS ---
Progress Note Patient says she has abdominal pain and rectal pain. Physical Exam Narrative General: Alert, Oriented x3, Cooperative HEENT: Atraumatic, PERRLA, EOMI, Normocephalic. Oral: Oral mucosa very dry. No Gingival or Mucosal Lesions/ Ulcerations Neck: Supple, No JVD, Negative Carotid Bruits Chest wall/Lungs: Right upper chest Mediport. Air entry diminished in bilateral lung bases. No crepitation/rhonchi Cardiovascular: Regular rate and rhythm, Normal S1,S2, No M/G/R Abdomen: Bowel Sounds Present, Soft, tenderness present in right upper quadrant/epigastric region. Non-Distended : No dysuria. No renal angle tenderness. No suprapubic tenderness. Extremities: No edema, Capillary Refill Less than 3 Seconds Skin: No rashes, No breakdown Musculoskeletal: No Tenderness to Palpation of Joints or Extremities Neurological: Cranial nerves II-XII grossly intact, DTR 2+/4. No acute focal neurological deficit. Psych/Mental Status: Normal Affect, Appropriate. Assessment & Plan Assessment/Plan (1) Epigastric abdominal pain: (2) Nausea and vomiting: (3) Diverticulitis of sigmoid colon: PLAN: Plan 64-year-old female with a history of anal cancer s/p pelvic radiation and RA on Abatacept, presenting with an acute flare of proctocolitis, likely due to chronic radiation-induced changes, but with important considerations for other etiologies.? She also has chronic dysphagia secondary to fundoplication and likely underlying motility disorder either from the fundoplication or previously undiagnosed prior to the fundoplication. Primary Diagnosis: * Chronic Radiation Proctitis (CRP) Exacerbation:?This is the most likely cause, given her history of pelvic radiation for anal cancer. Radiation causes progressive inflammation, vasculitis, and fibrosis, which can manifest years after treatment. The patient's long-standing symptoms with a recent acute flare, including bleeding, are characteristic. CRP is common after pelvic radiotherapy and can be triggered by various factors, but in her case, immunosuppression from abatacept could also play a role. Differential Diagnoses: * Inflammatory Bowel Disease (IBD) flare:?Although her chronic symptoms align with radiation injury, new or concurrent onset of IBD (e.g., Crohn's disease) is a possibility, especially with her RA history (an immune-mediated disease). Biopsy results from endoscopy would be crucial. * Infectious Colitis:?The low-grade fever and acute worsening of diarrhea warrant an infectious workup.?Clostridioides difficile?infection is a significant concern given her immunosuppressed state. Other pathogens, including CMV (especially with immunosuppression) or bacterial causes, should be considered. * Recurrence of Malignancy:?A recurrent or new malignancy must be excluded. Endoscopy with biopsies is critical, as a neoplasm can mimic radiation changes. * Ischemic Colitis:?The obliterative vasculitis from chronic radiation can predispose to bowel ischemia, although her presentation is less acute. Plan Diagnostics: * Stool Studies: * C. difficile?PCR/toxin assay. * Stool culture for bacteria (e.g.,?Salmonella,?Shigella,?Campylobacter). * Stool ova and parasites. * Stool for CMV * Laboratory Studies: * Complete Blood Count with differential to assess for anemia (from chronic bleeding) and leukocytosis (from infection). * Comprehensive Metabolic Panel to evaluate electrolytes and kidney function, especially with diarrhea. * C-reactive protein and Erythrocyte Sedimentation Rate to assess for systemic inflammation. * Endoscopy: * Flexible Sigmoidoscopy or Colonoscopy:?To visualize the mucosa, assess the extent and severity of inflammation, and obtain biopsies to differentiate CRP from IBD or malignancy. Therapeutics: * Symptom Management: * Continue supportive measures with hydration. * Hold loperamide temporarily until infectious causes are ruled out. * Consider topical therapies for proctitis symptoms, such as sucralfate enemas. * RA Management: * Consult with Rheumatology regarding the management of abatacept, especially if an infection is identified. * Treatment based on findings: * If?C. difficile?positive:?Start appropriate oral antibiotic (e.g., vancomycin or fidaxomicin). * If CRP confirmation:?Manage with topical agents, consider hyperbaric oxygen therapy (if severe and refractory) 03/29/2025-patient will need to undergo a flexible sigmoidoscopy with biopsies. I will put in orders for prep. Awaiting stool cultures. Visit Charges Inpatient E&M: 53501 Subs Hosp L3
[2025-03-29 15:40] VITALS: PULSE 75; RESP 18; O2SAT 94
[2025-03-29 15:50] VITALS: BP 135/70; PULSE 75; RESP 18; TEMP 36.6; O2SAT 94
[2025-03-29] MEDS: Polyethylene Glycol 3350 BOWEL PREP PO (16:38)
[2025-03-29] MEDS: 0.9% Normal Saline (250mL Bag) 250 ML 15 ML IV (17:56)
[2025-03-29 20:41] VITALS: BP 125/60; PULSE 73; RESP 16; TEMP 36.5; O2SAT 98
[2025-03-29] MEDS: buPROPion (SR) 150 MG Tablet.SA PO (21:56)
[2025-03-30] MEDS: metroNIDAZOLE 500 MG/100 ML BAG 100 MG IV ×3 (05:40→21:46)
[2025-03-30 05:43] VITALS: BP 136/54; PULSE 74; RESP 16; TEMP 36.4; O2SAT 97
[2025-03-30 06:34] LABS: Hematocrit 36.1 % (37-47); Hemoglobin 11.8 g/dL (12.0-15.0); Immature Granulocytes Count 0.020 X10^3/uL (0.0-0.0); Mean Corp Hgb Conc 32.7 g/dL (32-36); Mean Corpuscular Volume 87.4 fL (81-99); Mean Platelet Vol. 10.6 fl (6.2-12.0); NRBC Flagged by Analyzer 0.5 % (0-5); POSITIVE DIFFERENTIAL YES; Platelet Count 172 K/mm3 (150-450); RBC Distribution Width CV 14.1 % (11.6-14.6); RBC Distribution Width SD 45.4 fl (35.1-43.9); Red Blood Count 4.13 M/mm3 (4.2-5.4); White Blood Count 3.7 K/mm3 (4.4-11.0)
[2025-03-30 07:31] LABS: Anion Gap 10 (5-15); BUN 4 mg/dL (4-19); BUN/Creat Ratio 6.7 RATIO (10-20); Calcium,Total 8.8 mg/dL (7.6-11.0); Carbon Dioxide 20.5 mmol/L (21.0-32.0); Chloride 103 mmol/L (98-108); Estimated Creatinine Clearance 66.07 ml/min (50-250); Glucose 89 mg/dL (70-99); Potassium 3.1 mmol/L (3.3-5.1)
[2025-03-30 08:25] VITALS: BP 143/68; PULSE 74; RESP 16; TEMP 36.4; O2SAT 95
[2025-03-30] MEDS: Glycerin/Hypromellose/PEG400 15 ml Bottle 1 DRP OPHTHALMIC ×3 (08:27→22:16)
[2025-03-30] MEDS: Fluticasone 0.05% 1 SPRAY NASAL.SRY 2 SPRAY NASAL (08:28)
[2025-03-30] MEDS: Potassium Chloride 10mEq/100mL 10 MEQ/100 ML IV.SOLN. 100 MEQ IV BOLUS ×4 (09:08→16:42)
[2025-03-30 09:14] VITALS: BMI 29.8
--- NOTE | 2025-03-30 09:17 | NURSING ---
spoke with Cecille in nuclear med, states okay if pt needs to take her xanax with small sip of water
--- NOTE | 2025-03-30 10:43 | PN_ITS ---
Subjective Subjective Patient seen and examined with her nurse by her bedside. She complains of anxiety. She still has some abdominal pain though it is improving. Review of systems is otherwise negative. Objective Data Objective Data Vital Signs: Vital Signs Temp Pulse Resp BP Pulse Ox O2 Del Method 97.5 F L 74 16 143/68 H 95 Room Air 03/30/25 08:25 03/30/25 08:25 03/30/25 08:25 03/30/25 08:25 03/30/25 08:25 03/30/25 08:38 Oxygen Delivery Method Room Air Weight: 163 lb 5.8 oz Body Mass Index (BMI) 29.8 Intake & Output: Intake and Output for Last 24 Hours 03/28/25 03/29/25 03/30/25 23:59 23:59 23:59 Intake Total 2300 / 2550 1692.75 / 1692.75 150 / 150 Balance 2300 / 2550 1692.75 / 1692.75 150 / 150 Medical Nutrition Assessment Dietitian: Malnutrition Criteria Met Start: 03/28/25 11:39 Freq: Status: Active Protocol: Document 03/28/25 11:39 LO (Rec: 03/28/25 11:39 LO [id number]) Nutrition Malnutrition Evidence of Yes Malnutrition Exists Malnutrition (severe Acute Illness/Injury ): Evidenced By Suboptimal Energy Intake (Severe),Weight Loss (Severe) Clinical Problem Acute Disease or Injury Related Malnutrition Etiology severe related to nausea/vomiting Signs/Symptoms as evidenced by 20.7lbs (11.4%) weight loss in 1 month and PO intakes <75% of estimated nutrition needs for ~1 month Status Active Problem Recommendation Dietitian Advance diet as tolerated to Low Fiber as medically Recommendations/ able to manage medical conditions. Changes Will order 240mL Ensure Clear mixed tanner TID with meals to provide supplemental energy. Recommend Ensure Plus High Protein when diet advances. Lab / Micro Data 03/30/25 06:20 03/30/25 06:20 Labs: Laboratory Results - last 24 hr 03/30/25 06:20: WBC 3.7 L, RBC 4.13 L, Hgb 11.8 L, Hct 36.1 L, MCV 87.4, MCH 28.6, MCHC 32.7, RDW Std Deviation 45.4 H, RDW Coeff of Pepe 14.1, Plt Count 172, MPV 10.6, Immature Gran % (Auto) 0.500, Neut % (Auto) 72.6 H, Lymph % (Auto) 11.1 L, [place] % (Auto) 11.4 H, Eos % (Auto) 3.3, Baso % (Auto) 1.1 H, Absolute Neuts (auto) 2.7, Absolute Lymphs (auto) 0.41 L, Nucleated RBC % 0.5, Sodium 133, Potassium 3.1 L, Chloride 103, Carbon Dioxide 20.5 L, Anion Gap 10, BUN 4, Creatinine 0.64 L, Estim Creat Clear Calc 66.07, Est GFR (MDRD) Non-Af 98, B UN/Creatinine Ratio 6.7 L, Glucose 89, Calcium 8.8 Micro: Microbiology 03/29/25 03:35 Stool Enteric Bacteriology - Final 03/29/25 09:35 Stool Stool Lactoferrin - Final 03/29/25 09:35 Stool Clostridioides difficile (PCR) - Final Rhythm Strip Rhythm Strip: Sinus Rhythm Rate: 71 Ectopy: PVC(s) Physical Exam Const alert, oriented x3 and no apparent distress General Appearance: cooperative and well developed HEENT normocephalic, head/scalp atraumatic, moist oral mucous membranes, oropharynx normal and gingiva normal Eyes PERRL and EOMs intact bilaterally Neck no lymphadenopathy, supple and no JVD Lymph Lymphatic: no lymphedema noted Resp normal respiratory effort, normal air movement, no retractions, no use of accessory muscles and clear to auscultation bilaterally Cardio regular rate, regular rhythm, S1 normal heart sound, S2 normal heart sound and no murmurs GI normal to inspection, nondistended, normoactive bowel sounds, soft to palpation, non-tender and non-distended Extremity normal capillary refill General Extremity: no tenderness to palpation of joints or extremities Skin General Skin Exam: no breakdown Neuro CN's II-XII intact bilaterally, no focal motor deficits and no sensory deficits noted Sensorium / Orientation: awake and alert Coordination / Balance: [id number] test normal Motor Exam: general weakness Psych thought process normal, cooperative and affect normal Appearance: appropriate Assessment & Plan Assessment/Plan (1) Diverticulitis of sigmoid colon: PLAN: Plan #Diverticulitis of the sigmoid colon * admitted with a complaint of abdominal pain. CT abdomen showed sigmoid diveritulitis and proctitis * on metronidazole and ceftriaxone * had only one episode of bowel movement in the early hours of this morning; sample sent for enteric panel * GI on board. * GI is concerned about radiation induced injury to the rectum and colon. To have flexible sigmoidoscopy with biopsy to confirm radiation proctitis or otherwise * #Chronic diarrhea, nausea and vomiting with abdominal pain and * GI on board. this is chronic. * follows up with GI on outpatient basis. to have gastric emptying study today. * GI on board. Has had random colonic biopsy, and noninvasive workup for chronic pancreatic insufficiency and Crohn's disease was negative. * For flexible sigmoidoscopy today. * #History of anal cancer: * s/p chemoradiation. In remission. Had flexible sigmoidoscopy with biopsy by Dr Garcia in 02/2025. * Biopsy was negative for malignancy and showed benign squamous mucosa with hyperkeratosis. * #Chronic psoriatic arthritis and Sjogren's disease: stable. PT/OT On board. To follow up with rheumatology on outpatient basis #History of chronic dysphagia: s/p Vanessa fundoplication. #HFpEF: not in exacerbation. #Hypertension: on amlodipine #HYperlipidemia: on statin #History of COPD: not in exacerbation. On breathing treatment with bronchodilators. #History of DVT: on eliquis/ DVT prophylaxis: eliquis already. * Charges/Coding Visit Charges Inpatient E&M: 62022 Subs Hosp L2
[2025-03-30 12:00] VITALS: BP 138/64; PULSE 78; RESP 16; TEMP 36.5; O2SAT 97
[2025-03-30] MEDS: 0.9% Normal Saline (1000mL) 1,000 ML 15 ML IV (13:44)
--- NOTE | 2025-03-30 15:18 | CASEMGMT ---
Attempted several times to do assessment, Pt off the floor.
[2025-03-30 15:46] VITALS: BP 161/68; PULSE 82; RESP 16; TEMP 36.5; O2SAT 97
--- NOTE | 2025-03-30 17:53 | PN_ITS ---
Progress Note Patient was going to undergo colonoscopy today. However she had oatmeal daughter gastric emptying study today and could not be sedated by anesthesia. Physical Exam Const alert, oriented x3 and no apparent distress General Appearance: cooperative and well developed HEENT normocephalic, head/scalp atraumatic, moist oral mucous membranes, oropharynx normal and gingiva normal Eyes PERRL and EOMs intact bilaterally Neck no lymphadenopathy, supple and no JVD Lymph Lymphatic: no lymphedema noted Resp normal respiratory effort, normal air movement, no retractions, no use of accessory muscles and clear to auscultation bilaterally Cardio regular rate, regular rhythm, S1 normal heart sound, S2 normal heart sound and no murmurs GI normal to inspection, nondistended, normoactive bowel sounds, soft to palpation, non-tender and non-distended Extremity normal capillary refill General Extremity: no tenderness to palpation of joints or extremities Skin General Skin Exam: no breakdown Neuro CN's II-XII intact bilaterally, no focal motor deficits and no sensory deficits noted Sensorium / Orientation: awake and alert Coordination / Balance: [id number] test normal Motor Exam: general weakness Psych thought process normal, cooperative and affect normal Appearance: appropriate Assessment & Plan Assessment/Plan (1) Epigastric abdominal pain: (2) Nausea and vomiting: (3) Diverticulitis of sigmoid colon: PLAN: Plan 64-year-old female with a history of anal cancer s/p pelvic radiation and RA on Abatacept, presenting with an acute flare of proctocolitis, likely due to chronic radiation-induced changes, but with important considerations for other etiologies.? She also has chronic dysphagia secondary to fundoplication and likely underlying motility disorder either from the fundoplication or previously undiagnosed prior to the fundoplication. Primary Diagnosis: * Chronic Radiation Proctitis (CRP) Exacerbation:?This is the most likely cause, given her history of pelvic radiation for anal cancer. Radiation causes progressive inflammation, vasculitis, and fibrosis, which can manifest years after treatment. The patient's long-standing symptoms with a recent acute flare, including bleeding, are characteristic. CRP is common after pelvic radiotherapy and can be triggered by various factors, but in her case, immunosuppression from abatacept could also play a role. Differential Diagnoses: * Inflammatory Bowel Disease (IBD) flare:?Although her chronic symptoms align with radiation injury, new or concurrent onset of IBD (e.g., Crohn's disease) is a possibility, especially with her RA history (an immune-mediated disease). Biopsy results from endoscopy would be crucial. * Infectious Colitis:?The low-grade fever and acute worsening of diarrhea warrant an infectious workup.?Clostridioides difficile?infection is a significant concern given her immunosuppressed state. Other pathogens, including CMV (especially with immunosuppression) or bacterial causes, should be considered. * Recurrence of Malignancy:?A recurrent or new malignancy must be excluded. Endoscopy with biopsies is critical, as a neoplasm can mimic radiation changes. * Ischemic Colitis:?The obliterative vasculitis from chronic radiation can predispose to bowel ischemia, although her presentation is less acute. Plan Diagnostics: * Stool Studies: * C. difficile?PCR/toxin assay. * Stool culture for bacteria (e.g.,?Salmonella,?Shigella,?Campylobacter). * Stool ova and parasites. * Stool for CMV * Laboratory Studies: * Complete Blood Count with differential to assess for anemia (from chronic bleeding) and leukocytosis (from infection). * Comprehensive Metabolic Panel to evaluate electrolytes and kidney function, especially with diarrhea. * C-reactive protein and Erythrocyte Sedimentation Rate to assess for systemic inflammation. * Endoscopy: * Flexible Sigmoidoscopy or Colonoscopy:?To visualize the mucosa, assess the extent and severity of inflammation, and obtain biopsies to differentiate CRP from IBD or malignancy. Therapeutics: * Symptom Management: * Continue supportive measures with hydration. * Hold loperamide temporarily until infectious causes are ruled out. * Consider topical therapies for proctitis symptoms, such as sucralfate enemas. * RA Management: * Consult with Rheumatology regarding the management of abatacept, especially if an infection is identified. * Treatment based on findings: * If?C. difficile?positive:?Start appropriate oral antibiotic (e.g., vancomycin or fidaxomicin). * If CRP confirmation:?Manage with topical agents, consider hyperbaric oxygen therapy (if severe and refractory) 03/29/2025-patient will need to undergo a flexible sigmoidoscopy with biopsies. I will put in orders for prep. Awaiting stool cultures. 03/30/2025-patient will undergo colonoscopy tomorrow. She will need enemas tonight and tomorrow. Visit Charges Inpatient E&M: 32217 [facility] Hosp L3
[2025-03-30 21:42] VITALS: BP 159/67; PULSE 70; RESP 16; TEMP 36.8; O2SAT 97
[2025-03-30] MEDS: APIXABAN 5 MG TABLET PO (21:45)
[2025-03-30] MEDS: buPROPion (SR) 150 MG Tablet.SA PO (21:45)
[2025-03-31] VITALS (11 sets, daily range): BP systolic 112–146; BP diastolic 53–73; PULSE 67–84; RESP 16–18; TEMP 36.2–36.5; O2SAT 94–98; BMI 29.8; BMI 31.1
[2025-03-31] MEDS: 0.9% Normal Saline (250mL Bag) 250 ML 15 ML IV ×2 (05:56→08:59)
[2025-03-31] MEDS: 0.9% Saline Lock 10 ML Syringe IV ×2 (05:56→14:32)
[2025-03-31 06:15] LABS: Hematocrit 34.9 % (37-47); Hemoglobin 11.2 g/dL (12.0-15.0); Immature Granulocytes Count 0.020 X10^3/uL (0.0-0.0); Mean Corp Hgb Conc 32.1 g/dL (32-36); Mean Corpuscular Volume 87.3 fL (81-99); Mean Platelet Vol. 10.5 fl (6.2-12.0); NRBC Flagged by Analyzer 0 % (0-5); POSITIVE DIFFERENTIAL YES; Platelet Count 172 K/mm3 (150-450); RBC Distribution Width CV 14.1 % (11.6-14.6); RBC Distribution Width SD 45.5 fl (35.1-43.9); Red Blood Count 4.00 M/mm3 (4.2-5.4); White Blood Count 3.5 K/mm3 (4.4-11.0)
[2025-03-31] MEDS: metroNIDAZOLE 500 MG/100 ML BAG 100 MG IV ×3 (06:24→21:00)
[2025-03-31 06:25] LABS: Prothrombin Time (Protime)PT. 16.5 SECONDS (11.7-14.9)
[2025-03-31 06:26] LABS: Partial Thromboplast Time 39.6 Seconds (24.1-36.2)
[2025-03-31 07:47] LABS: Anion Gap 9 (5-15); BUN 3 mg/dL (4-19); BUN/Creat Ratio 5.8 RATIO (10-20); Calcium,Total 8.8 mg/dL (7.6-11.0); Carbon Dioxide 21.7 mmol/L (21.0-32.0); Chloride 107 mmol/L (98-108); Estimated Creatinine Clearance 66.07 ml/min (50-250); Glucose 100 mg/dL (70-99)
[2025-03-31 08:07] LABS: Potassium 2.4 mmol/L (3.3-5.1)
[2025-03-31] MEDS: Potassium Chloride 10mEq/100mL 10 MEQ/100 ML IV.SOLN. 100 MEQ IV BOLUS ×3 (08:53→10:58)
[2025-03-31] MEDS: Glycerin/Hypromellose/PEG400 15 ml Bottle 1 DRP OPHTHALMIC ×3 (08:58→18:29)
[2025-03-31] MEDS: Fluticasone 0.05% 1 SPRAY NASAL.SRY 2 SPRAY NASAL (08:58)
--- NOTE | 2025-03-31 10:29 | CASEMGMT ---
Addendum entered by Sofia Meyer 03/31/25 15:11: BOB ZIEGLER Assessment: Face to Face with pt for initial transition planning/care coordination assessment. BOB ZIEGLER introduced self and role at [facility], pt voices understanding and consents to assessment. Pt is A&O x4 and answers all questions appropriately at this time. Pt sitting up in bed in no distress with nurse in room. Care providers, pharmacy, and demographics verified/updated. Admitting Dx: RUQ pain, diverticulitis Strata Score: 4 PCP:Jacquie Specialists:Friend, GI; Emeka, rheum; Tali, onc; Ovidio, vasc Preferred Pharmacy: [facility] Insurance: [facility] Dual Complete, [facility] Prescription Benefit: yes LNOK: Marzena Borjas dtr Living Arrangements: Pt lives with dtr and granddtr in a single story home with 4 +1 steps to enter with bilat handrails. Pt states she has [employer] who assist her 5 days/wk. The aides do bathing, laundry, and cleaning. Pt states her dtr gets groceries. Pt gets [employer] meals delivered weekly, 7 meals at a time. Pt denies concerns at home. Transportation: Pt drives self and denies concerns with transportation. DME:walker, rollator, cane, BSC, shower chair, hand rails in bathroom, [facility] HHC/SNF: Pt denies hx of HHC but states she has a [employer] from her insurance who sees her yearly and also there is a program through her insurance called [facility] in which a [facility] [employer] can come see pt if she can't get a physician after hours or weekends. Pt states no concerns with going home at time of dc. Pt states her CM is Lduy New from [facility]. Pt states no further concerns/needs. CM to follow. Advised pt to ask CM if any further questions/concerns/needs arise, voices understanding. Pt Goal: Home Plan: Home TC to norman Alvarenga vm that pt is admitted and left return phone number should she have any questions. Radha ROJAS CM Original Note: BOB ZIEGLER into pt room, assessment started but then surgery came to take pt down. BOB ZIEGLER to follow back up to complete assessment.
[2025-03-31 11:18] LABS: Potassium 4.4 mmol/L (3.3-5.1)
--- NOTE | 2025-03-31 11:30 | COLBX_PTH ---
PATIENT: DEWEY HORTA LOC: MS3 U#:[id number] AGE/SX: 64/F ROOM: WV311 RE03/27/[address]: Dr. Angie Trent MD : 1960 BED: 1 DIS: 04/01/2025 SPEC #: [id number] RECD: 03/31/25 13:52 STATUS: SAMREEN BURNETTE #: [id number] THALIA: 03/31/25 11:[address]: Andrez Pitts DEPT: SURGICAL PATHOLOGY RECD BY: Wang Jerez ENTERED: 03/31/25 14:42 SP TYPE: COLON BX OTHR DR: Dr. Lincoln Voss, MD Dr. Colton Simpson Dr., MD Danielle Byler, [employer]LECT[employer]ER-C SWATHI Huerta, [employer] CY Lin Tissues: A - COLON BIOPSY B - COLON BIOPSY C - Anus, NOS Procedures: Trichrome (control) Special Stain Group I Surgery Specimen Level III Surgery Specimen Level IV HEADER OPERATION: Colonoscopy with biopsy, biopsy of polyp PRE-OP DIAGNOSIS: Epigastric abdominal pain, nausea / vomiting, diverticulitis of sigmoid colon TISSUE SUBMITTED: A- Hepatic flexure polyp biopsy, B- Random colon biopsy, C- Anus biopsy MICROSCOPIC DIAGNOSIS A. Hepatic flexure, polyp, biopsy: - Tubular adenoma. B. Colon, random, biopsy: - No specific pathologic change. - The histologic features of microscopic colitis are not demonstrated. Note: No thickening of the subepithelial collagen table is noted with trichrome stain. C. Anus, biopsy: - Colorectal mucosa with chronic inflammation and Paneth cell metaplasia, suggestive of chronic proctitis. - No squamous mucosa seen. MICROSCOPIC DESCRIPTION Slides are reviewed. GROSS DESCRIPTION A. Received in fixative is one container labeled with the patient's name and designated Hepatic flexure polyp biopsy. The specimen consists of one irregular fragment of light akhtar soft tissue that measures 0.4 cm. The specimen is totally submitted in one cassette. B. Received in fixative is one container labeled with the patient's name and designated Random colon biopsy. The specimen consists of multiple irregular fragments of light akhtar soft tissue that in aggregate measure 1.6 x 0.7 x 0.1 cm. The specimen is totally submitted in one cassette. C. Received in fixative is one container labeled with the patient's name and designated Anus biopsy. The specimen consists of three irregular fragments of light akhtar soft tissue that measure 0.1 to 0.5 cm. The specimen is totally submitted in one cassette. ME 03/31/2025 CPT:[id number]
--- NOTE | 2025-03-31 11:37 | PN_ITS ---
Subjective Subjective Patient seen and examined with his nurse by his bedside.. He had no active complaints and had an uneventful night. She is due for colonoscopy today. She had the gastric emptying study yesterday which was normal. Review of systems is otherwise negative. Objective Data Objective Data Vital Signs: Vital Signs Temp Pulse Resp BP Pulse Ox O2 Del Method 97.4 F L 84 18 146/63 H 94 Room Air 03/31/25 07:45 03/31/25 07:45 03/31/25 07:45 03/31/25 07:45 03/31/25 07:45 03/31/25 07:45 Oxygen Delivery Method Room Air Weight: 163 lb 5.8 oz Body Mass Index (BMI) 29.8 Intake & Output: Intake and Output for Last 24 Hours 03/29/25 03/30/25 03/31/25 23:59 23:59 23:59 Intake Total 1692.75 / 1692.75 1750 / 1750 344.08 / 344.08 Balance 1692.75 / 1692.75 1750 / 1750 344.08 / 344.08 Medical Nutrition Assessment Dietitian: Malnutrition Criteria Met Start: 03/28/25 11:39 Freq: Status: Active Protocol: Document 03/28/25 11:39 LO (Rec: 03/28/25 11:39 LO [id number]) Nutrition Malnutrition Evidence of Yes Malnutrition Exists Malnutrition (severe Acute Illness/Injury ): Evidenced By Suboptimal Energy Intake (Severe),Weight Loss (Severe) Clinical Problem Acute Disease or Injury Related Malnutrition Etiology severe related to nausea/vomiting Signs/Symptoms as evidenced by 20.7lbs (11.4%) weight loss in 1 month and PO intakes <75% of estimated nutrition needs for ~1 month Status Active Problem Recommendation Dietitian Advance diet as tolerated to Low Fiber as medically Recommendations/ able to manage medical conditions. Changes Will order 240mL Ensure Clear mixed tanner TID with meals to provide supplemental energy. Recommend Ensure Plus High Protein when diet advances. Lab / Micro Data 03/31/25 06:00 03/31/25 11:30 Labs: Laboratory Results - last 24 hr 03/31/25 06:00: WBC 3.5 L, RBC 4.00 L, Hgb 11.2 L, Hct 34.9 L, MCV 87.3, MCH 28.0, MCHC 32.1, RDW Std Deviation 45.5 H, RDW Coeff of Pepe 14.1, Plt Count 172, MPV 10.5, Immature Gran % (Auto) 0.600, Neut % (Auto) 69.4, Lymph % (Auto) 12.0 L, [place] % (Auto) 14.0 H, Eos % (Auto) 2.6, Baso % (Auto) 1.4 H, Absolute Neuts (auto) 2.4, Absolute Lymphs (auto) 0.42 L, Nucleated RBC % 0, PT 16.5 H, INR 1.3, APTT 39.6 H, Sodium 137, Potassium 2.4 L*, Chloride 107, Carbon Dioxide 21.7, Anion Gap 9, BUN 3 L, Creatinine 0.56 L, Estim Creat Clear Calc 66.07, Est GFR (MDRD) Non-Af 101, BUN/Creatinine Ratio 5.8 L, Glucose 100 H, Calcium 8.8 03/31/25 10:38: Potassium 4.4 Micro: Microbiology 03/29/25 03:35 Stool Enteric Bacteriology - Final 03/29/25 09:35 Stool Stool Lactoferrin - Final 03/29/25 09:35 Stool Clostridioides difficile (PCR) - Final Rhythm Strip Rhythm Strip: Sinus Rhythm Rate: 71 Ectopy: PVC(s) Physical Exam Const alert, oriented x3 and no apparent distress General Appearance: cooperative HEENT normocephalic, head/scalp atraumatic, moist oral mucous membranes, oropharynx normal and gingiva normal Eyes PERRL and EOMs intact bilaterally Neck no lymphadenopathy, supple and no JVD Lymph Lymphatic: no lymphedema noted Resp normal respiratory effort, normal air movement, no retractions, no use of accessory muscles and clear to auscultation bilaterally Cardio regular rate, regular rhythm, S1 normal heart sound, S2 normal heart sound and no murmurs GI normal to inspection, nondistended, normoactive bowel sounds, soft to palpation, non-tender and non-distended Extremity normal capillary refill General Extremity: no tenderness to palpation of joints or extremities Skin General Skin Exam: no breakdown Neuro CN's II-XII intact bilaterally, no focal motor deficits and no sensory deficits noted Sensorium / Orientation: awake and alert Coordination / Balance: [id number] test normal Motor Exam: general weakness Psych thought process normal, cooperative and affect normal Appearance: appropriate Assessment & Plan Assessment/Plan (1) Diverticulitis of sigmoid colon: PLAN: Plan #Diverticulitis of the sigmoid colon * admitted with a complaint of abdominal pain. CT abdomen showed sigmoid diverticulitis and proctitis * on metronidazole and ceftriaxone * had only one episode of bowel movement in the early hours of this morning; sample sent for enteric panel * GI on board. * GI is concerned about radiation induced injury to the rectum and colon. For colonoscopy today due to concerns about radiation proctitis #Chronic diarrhea, nausea and vomiting with abdominal pain and * GI on board. this is chronic. * follows up with GI on outpatient basis. * GI on board. Has had random colonic biopsy, and noninvasive workup for chronic pancreatic insufficiency and Crohn's disease was negative. * For colonoscopy today. Gastric emptying study (one hour) was normal yesterday. * colonscopy today showed mucosal ulceration with 5mm polyp at hte hepatic flexure, congested mucosa in the entire examined colon which was biopsied, and diverticulosis in the rectosigmoid colon and in the descending colon. * #History of anal cancer: * s/p chemoradiation. In remission. Had flexible sigmoidoscopy with biopsy by Dr Garcia in 02/2025. * Biopsy was negative for malignancy and showed benign squamous mucosa with hyperkeratosis. * #Chronic psoriatic arthritis and Sjogren's disease: stable. PT/OT On board. To follow up with rheumatology on outpatient basis #History of chronic dysphagia: s/p Vanessa fundoplication. #HFpEF: not in exacerbation. #Hypertension: on amlodipine #HYperlipidemia: on statin #History of COPD: not in exacerbation. On breathing treatment with bronchodilators. #History of DVT: on eliquis/ DVT prophylaxis: eliquis already. * Charges/Coding Visit Charges Inpatient E&M: 54525 Subs Hosp L2
[2025-03-31 11:45] LABS: Potassium 4.1 mmol/L (3.3-5.1)
--- NOTE | 2025-03-31 11:51 | PCM.PRE.AN2 ---
ASA Classification* ASA Classification ASA Classification: 3 (HFpEF, Sjogren, COPD, BOZENA, carotid disease, RA) Assessment & Plan Anesthesia* Anesthesia Assessment Anesthesia Assessment: Discussed sedation and/or anesthesia options, risks, benefits, and alternatives with patient/parents/legal guardian/POA. Questions invited. The patient/parents/legal guardian/POA seems to understand and agrees to proceed with anesthesia plan. Reviewed the physical assessment, medical history, allergy history and patient home medications list prior to surgery/procedure/anesthetic and documented any changes. Performed airway and anesthesia risk assessments. Anesthesia Type Anesthesia Type: MAC Anesthesia Focused Assessment* Temperature: 97.4 F Pulse Rate: 84 Blood Pressure: 146/63 Respiratory Rate: 18 Pulse Ox: 94 Oxygen Delivery Method: Room Air Airway Assessment Mouth opens: >3 cm Mallampati Score: II Teeth Condition: Missing Neck Range of motion (ROM): Limited ROM Labs Anesthesia Preop lab: CBC WBC 3.5 K/mm3 (4.4-11.0) L 03/31/25 06:00 03/31/25 RBC 4.00 M/mm3 (4.2-5.4) L 03/31/25 06:00 03/31/25 Hgb 11.2 g/dL (12.0-15.0) L 03/31/25 06:00 03/31/25 Hct 34.9 % (37-47) L 03/31/25 06:00 03/31/25 Plt Count 172 K/mm3 (150-450) 03/31/25 06:00 03/31/25 CHEMISTRY Potassium 4.1 mmol/L (3.3-5.1) 03/31/25 11:30 03/31/25 Sodium 137 mmol/L (133-145) 03/31/25 06:00 03/31/25 Magnesium 1.9 mg/dL (1.6-2.6) 01/11/23 15:05 01/11/23 BUN 3 mg/dL (4-19) L 03/31/25 06:00 03/31/25 Creatinine 0.56 mg/dL (0.70-1.20) L 03/31/25 06:00 03/31/25 Glucose 100 mg/dL (70-99) H 03/31/25 06:00 03/31/25 TSH 0.80 uIU/mL (0.358-3.74) 11/21/15 16:47 11/21/15 COAG PT 16.5 SECONDS (11.7-14.9) H 03/31/25 06:00 03/31/25 Pre-Assessment Diagnosis/Proposed Procedure Planned Operative Procedure(s): EGD Anesthesia History 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 When Was Last Pacemaker Check QUESTION #4 FULL TEXT: You/Your Family Experience fever (hyperthermia) with Anesthesia Last Oral Intake Last Oral intake: Last Oral Intake NPO since 00:00 03/31/25 09:14 Meds taken in AM with sips of Yes 03/31/25 09:14 water? 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 assistant Female HX of Motion Sickness HX of N/V After Surgery Non-Smoker Duration of Surgery greater than 60 minutes Number of Risk Factors PONV Score Height & Weight Height & Weight: Anesthesia: Height & Weight Height 5 ft 2 in 03/31/25 09:14 Weight: 74.1 kg 03/31/25 09:14 Body Mass Index (BMI) 29.8 03/31/25 09:14 Respiratory Assessment Respiratory Assessment - library clerical assistant: Respiratory Tract Infection Hx - library clerical assistant Hx Respiratory Tract Infection No 03/30/25 05:35 STOP Sleep Apnea STOP Sleep Apnea - library clerical assistant: STOP Sleep Apnea - library clerical assistant Hx Hypertension Yes 03/28/25 07:58 Hx Sleep Apnea No 03/27/25 19:49 CPAP No 03/27/25 19:49 BIPAP No 03/27/25 19:49 Do you snore loudly (louder No 03/27/25 19:49 than talking or can be heard Do you often feel tired/ No 03/27/25 19:49 fatigued/ sleepy during daytime? Has anyone observed you stop No 03/27/25 19:49 breathing during sleep? STOP Results Negative 03/27/25 19:49 QUESTION #5 FULL TEXT : Do you snore loudly (louder than talking or can be heard through closed doors)? Tobacco Use History Tobacco Use History - library clerical assistant: Tobacco Use History - library clerical assistant Tobacco Use Smoking Status Former smoker 03/27/25 19:49 Hx Tobacco Use No 03/27/25 19:49 Years Smoking Packs Smoked per Day Smoking Cessation Date was Yes - quit smoking within 15 03/27/25 19:49 within the last 15 years years Hx Smoking Cessation Date 12/27/13 03/27/25 19:49 Hx Smoking Cessation No 03/27/25 19:49 Counseling Hematologic Medial History Hematologic Hx - library clerical assistant: Hematologic Medical Hx - honey liquefier Hx of Blood Transfusion Yes 03/27/25 19:49 Hx of Transfusion in last 3 No 03/27/25 19:49 Months Date of Last Transfusion (if within last 3 months) Ever experience any problems No 03/27/25 19:49 with transfusion(s)? Specify any problems Hx of Preganancy in last 3 No 03/27/25 19:49 Months Nurse Filling Out Transfusion TMELLOR 03/27/25 19:49 & Questions: Date: 03/27/25 03/27/25 19:49 Time: 19:50 03/27/25 19:49 Patient unable to answer at this time (ie. 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 History - library clerical assistant: /Reproductive Hx- library clerical assistant Hx Now Gestational Age (in weeks): EDC: Hx Hx Para Hx Section SAB No 02/24/25 14:24 Active Medications Active Medications: Current Medications Generic Name Dose Route Start Last Admin Trade Name Freq PRN Reason Stop Dose Admin Acetaminophen 650 mg 03/27/25 19:42 03/27/25 21:59 Acetaminophen 325 Mg Tablet PO 650 mg Q6H PRN PRN Administration Pain 1-10 Or Fever >100.7 Alprazolam 0.5 mg 03/27/25 20:10 03/30/25 22:16 Alprazolam 0.5 Mg Tablet PO 0.5 mg TID PRN PRN Administration ANXIETY Amlodipine Besylate 7.5 mg 03/28/25 10:00 03/30/25 15:44 Amlodipine 2.5 Mg Tablet PO 7.5 mg DAILY NICOLE Administration Protocol Apixaban 5 mg 03/27/25 22:00 03/31/25 09:12 Apixaban 5 Mg Tablet PO Not Given BID NICOLE Bupropion HCl 150 mg 03/27/25 22:00 03/30/25 21:45 Bupropion (Sr) 150 Mg Tablet.Sa PO 150 mg QHS NICOLE Administration Diphenoxylate HCl/Atropine 1 tablet 03/27/25 20:10 Diphenoxylate/Atrop 1 Tablet PO TID PRN PRN diarrhea Fluticasone Propionate 2 spray 03/28/25 10:00 03/31/25 08:58 Fluticasone 0.05% 1 [place] Nasal.Sry NASAL 2 spray DAILY NICOLE Administration Glycerin/Hypromellose/Polyethylene 1 drp 03/27/25 22:00 03/31/25 08:58 Glycerin/Hypromellose/[id number] 15 Ml Bottle OPHTHALMIC 1 drp 4X/DAY NICOLE Administration Metronidazole 500 mg in 100 mls @ 100 mls/hr 03/28/25 06:00 03/31/25 07:24 Flagyl IV Infused Q8 NICOLE Infusion Ceftriaxone Sodium 1 gm in 50 mls @ 100 mls/hr 03/28/25 10:00 03/31/25 08:59 Rocephin IV 100 mls/hr Q24 NICOLE Administration Sodium Chloride 250 mls @ 15 mls/hr 03/27/25 19:51 03/31/25 08:59 IV 15 mls/hr .[id number] PRN Administration Saline Flush Sodium Chloride 1,000 mls @ 15 mls/hr 03/30/25 13:05 03/30/25 13:44 IV 15 mls/hr .Q48H NICOLE Administration Potassium Chloride 10 meq in 100 mls @ 100 mls/hr 03/31/25 08:30 03/31/25 10:58 IV BOLUS 03/31/25 12:29 100 mls/hr Q1H NICOLE Administration Meclizine HCl 25 mg 03/27/25 20:10 Meclizine Hcl 25 Mg Tablet PO QHS PRN PRN dizziness Morphine Sulfate 2 mg 03/27/25 19:42 Morphine 2 Mg/Ml Syringe IV Q4H PRN PRN Pain Score 6-10 or Pre PT/OT Nitroglycerin 0.4 mg 03/27/25 19:42 Nitroglycerin (Inpatient Use) 0.4 Mg Tab.Subl SL Q5M PRN CARDIAC/CHEST PAIN Primidone 100 mg 03/27/25 22:00 03/30/25 21:45 Primidone 50 Mg Tablet PO 100 mg QHS NICOLE Administration Sodium Chloride 10 - 40 ml 03/27/25 19:51 03/31/25 05:56 0.9% Saline Lock 10 Ml Syringe IV 40 ml UD PRN Administration SALINE FLUSH PFSH Medical History Nausea and vomiting Pancreatic insufficiency Crohn disease Cancer Walker as ambulation aid DVT (deep venous thrombosis) Gastric reflux 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 Mass of anus Perirectal abscess History of Crohn's disease Psoriatic arthritis Psoriasis Internal derangement of right knee Wears glasses Post-menopausal Depression Anxiety Ambulates with cane Injury of back Difficulty swallowing History of IBS History of hiatal hernia Former smoker Shortness of breath on exertion Chronic cough History of echocardiogram History of stress test Hypertension Cardiology follow-up encounter History of CHF (congestive heart failure) History of irregular heartbeat Acute pharyngitis, unspecified URI (upper respiratory infection) Contact with or suspected exposure to other viral communicable disease History of partial replacement of left hip joint using bipolar prosthesis Vitamin D deficiency HLD (hyperlipidemia) Insomnia Dry eye Regular astigmatism, bilateral PVCs (premature ventricular contractions) Coronary artery stenosis Chronic diastolic CHF (congestive heart failure) Iron malabsorption Osteoarthritis Lumbar spondylosis Osteoporosis Congenital cataract Intermittent palpitations Nausea TIA (transient ischemic attack) Acute maxillary sinusitis, unspecified Acute ethmoidal sinusitis, unspecified Acute frontal sinusitis, unspecified COPD exacerbation Foreign body in conjunctival sac, left eye, initial encounter Acute bacterial conjunctivitis Influenza A Acute bronchitis Back pain Limb weakness Asthma Anemia Arthritis Home Medications ?Medication ?Instructions ?Recorded ?Last Taken ?Type albuterol sulfate 90 mcg/actuation 2 puff inhalation Q4H PRN PRN 03/13/15 Unknown History aerosol inhaler Shortness Of Breath fluoxetine 20 mg capsule 60 mg PO QHS MENTAL HEALTH 12/13/15 09/01/24 History peg [id number] 1 1 drp OP 4X/DAY DRY EYES 11/13/17 03/19/24 History %-0.2 %-0.2 % eye drops (Dry Eye Relief) leflunomide 20 mg tablet (Arava) 20 mg PO QHS RA 03/22/18 09/01/24 History amlodipine 5 mg tablet 7.5 mg PO DAILY BP 08/15/22 03/02/25 06:30 History mometasone 50 mcg/actuation nasal 2 spray intranasal DAILY ALLERGIES 08/15/22 09/01/24 History spray abatacept 50 mg/0.4 mL 50 mg subcut QMONTH RA 12/17/22 02/18/25 History subcutaneous syringe (Orencia) acetaminophen 500 mg tablet 1,000 mg PO Q6H PRN fever or pain 11/15/23 09/01/24 History atorvastatin 80 mg tablet 80 mg PO QHS CHOLESTEROL 11/15/23 09/01/24 History meclizine 25 mg tablet 25 mg PO QHS PRN PRN dizziness 03/17/24 03/02/25 06:30 History bupropion HCl (smoking deter) 150 150 mg PO QHS DEPRESSION 09/02/24 09/01/24 History mg tablet,12 hr sustained-release(smoking deterrent) cholecalciferol (vitamin D3) 1,250 1,250 mcg PO Q14D REPLACEMENT 10/24/24 Unknown History mcg (50,000 unit) capsule furosemide 20 mg tablet 20 mg PO DAILY WATER PILL 10/24/24 Unknown History alprazolam 1 mg tablet 1 mg PO TID ANXIETY 30 days #90 12/02/24 Unknown Rx tabs diphenoxylate-atropine 2.5 1 tab PO TID PRN diarrhea #90 tabs 02/02/25 Unknown Rx mg-0.025 mg tablet (Lomotil) tramadol 50 mg tablet 50 mg PO Q6H PRN PRN pain 02/24/25 Unknown History prochlorperazine maleate 10 mg 10 mg PO TID PRN nausea and 03/16/25 Unknown Rx tablet (Compazine) vomiting #30 tabs apixaban 5 mg tablet (Eliquis) 5 mg PO BID HX DVT, CAROTID ARTERY 08/30/25 Unknown History DISEASE primidone 50 mg tablet 100 mg PO QHS TREMORS 03/27/25 Unknown History Allergy/AdvReac Type Severity Reaction Status Date / Time doxycycline calcium (From Allergy Anaphylaxis Verified 03/27/25 14:59 Vibramycin) doxycycline hyclate (From Allergy Anaphylaxis Verified 03/27/25 14:59 Vibramycin) doxycycline monohydrate Allergy Anaphylaxis Verified 03/27/25 14:59 (From Vibramycin) NSAIDS (Non-Steroidal Allergy Anaphylaxis Verified 03/27/25 14:59 Anti-Inflamma duloxetine (From Cymbalta) AdvReac HEADACHE Verified 03/27/25 14:59 AND UPSET STOMACH hydrocodone bitartrate (From AdvReac STOMACH Verified 03/27/25 14:59 Vicodin) UPSET hydromorphone HCl (From AdvReac Vomiting Verified 03/27/25 14:59 Dilaudid) morphine AdvReac Vomiting Verified 03/27/25 14:59 Family History Mother Asthma Hypertension Kidney disease Father Asthma Myocardial infarction Daughter Asthma Diabetes Hypertension Sister Asthma Hypertension Surgical History History of left hip replacement History of total right knee replacement (TKR) S/P total knee arthroplasty Hx of esophagogastroduodenoscopy History of cardiac catheterization S/P repair of paraesophageal hernia History of Vanessa fundoplication H/O adenoidectomy History of tonsillectomy H/O hernia repair History of total left knee replacement Hx of section H/O shoulder surgery Social History household members: family housing: house Smoking Status: Former smoker quit date: 07/29/13 alcohol intake: never substance use type: does not use Review of Systems (Anesthesia) ROS Narrative System reviewed and no additional complaints, except as documented.
[2025-03-31 12:36] LABS: Magnesium 1.9 mg/dL (1.5-2.2)
--- NOTE | 2025-03-31 12:44 | OP.PROVAT_ITS ---
03/31/2025 [facility] Re : Colonoscopy procedure for Marimar Wang Dear Jacquie This procedure was performed on Monday, March 31, 2025. My impressions and recommendations are as follows: Impressions : - Mucosal ulceration. Biopsied. - One 5 mm polyp at the hepatic flexure, removed with a jumbo cold forceps. Resected and retrieved. - Congested mucosa in the entire examined colon. Biopsied. - Diverticulosis in the recto-sigmoid colon, in the sigmoid colon and in the descending colon. - The examination was otherwise normal on direct and retroflexion views. Recommendations : - Discharge patient to home. - Resume previous diet. - Continue present medications. - Await pathology results. - Repeat colonoscopy in 3 years for surveillance. My findings are described in the full procedure note, which is enclosed. If I can be of further assistance, please feel free to contact me at . Sincerely, Andrez Pitts, 03/31/2025 12:44:03 PM This report has been signed electronically.
--- NOTE | 2025-03-31 12:44 | OP.COLON_ITS ---
Patient Name: Marimar Wang Procedure Date: 03/31/2025 12:01 PM Date of : 1960 Age: 64 Procedure: Colonoscopy Indications: Screening for colorectal malignant neoplasm Providers: Andrez Pitts DO Medicines: Monitored Anesthesia Care Patient Profile: This is a 64 year old female. Refer to note in patient chart for documentation of history and physical. Last Colonoscopy: 3 years ago. Complications: No immediate complications. Procedure: Pre-Anesthesia Assessment: - Prior to the procedure, a History and Physical was performed, and patient medications and allergies were reviewed. The patient is competent. The risks and benefits of the procedure and the sedation options and risks were discussed with the patient. All questions were answered and informed consent was obtained. Patient identification and proposed procedure were verified by the physician in the pre-procedure area. Mental Status Examination: alert and oriented. Airway Examination: normal oropharyngeal airway and neck mobility. Respiratory Examination: clear to auscultation. CV Examination: normal. Prophylactic Antibiotics: The patient does not require prophylactic antibiotics. Prior Anticoagulants: The patient has taken no anticoagulant or antiplatelet agents except for NSAID medication. ASA Grade Assessment: II - A patient with mild systemic disease. After reviewing the risks and benefits, the patient was deemed in satisfactory condition to undergo the procedure. The anesthesia plan was to use monitored anesthesia care (MAC). Immediately prior to administration of medications, the patient was re-assessed for adequacy to receive sedatives. The heart rate, respiratory rate, oxygen saturations, blood pressure, adequacy of pulmonary ventilation, and response to care were monitored throughout the procedure. The physical status of the patient was re-assessed after the procedure. After I obtained informed consent, the scope was passed under direct vision. Throughout the procedure, the patient's blood pressure, pulse, and oxygen saturations were monitored continuously. The Colonoscope was introduced through the anus and advanced to the cecum, identified by appendiceal orifice and ileocecal valve. The colonoscopy was performed without difficulty. The patient tolerated the procedure well. The quality of the bowel preparation was adequate. The terminal ileum, ileocecal valve, appendiceal orifice, and rectum were photographed. Scope In: 12:13:47 PM Scope Withdrawal Time 0 hours 11 minutes 53 seconds Scope Out: 12:38:09 PM Total Procedure Duration Time 0 hours 24 minutes 22 seconds Findings: The perianal and digital rectal examinations were normal. Discontinuous areas of nonbleeding ulcerated mucosa with no stigmata of recent bleeding were present at the anus. Biopsies were taken with a cold forceps for histology. Verification of patient identification for the specimen was done. Estimated blood loss was minimal. A 5 mm polyp was found in the hepatic flexure. The polyp was sessile. The polyp was removed with a jumbo cold forceps. Resection and retrieval were complete. Verification of patient identification for the specimen was done. Estimated blood loss was minimal. An area of moderately congested mucosa was found in the entire colon. Biopsies were taken with a cold forceps for histology. Verification of patient identification for the specimen was done. Estimated blood loss was minimal. Multiple small-mouthed diverticula were found in the recto-sigmoid colon, sigmoid colon and descending colon. The exam was otherwise without abnormality on direct and retroflexion views. Impression: - Mucosal ulceration. Biopsied. - One 5 mm polyp at the hepatic flexure, removed with a jumbo cold forceps. Resected and retrieved. - Congested mucosa in the entire examined colon. Biopsied. - Diverticulosis in the recto-sigmoid colon, in the sigmoid colon and in the descending colon. - The examination was otherwise normal on direct and retroflexion views. Recommendation: - Discharge patient to home. - Resume previous diet. - Continue present medications. - Await pathology results. - Repeat colonoscopy in 3 years for surveillance. Procedure Code(s): --- Professional --- 15678, Colonoscopy, flexible; with biopsy, single or multiple CPT copyright 2021 [employer]. All rights reserved. The codes documented in this report are preliminary and upon formulation chemist review may be revised to meet current compliance requirements. Andrez Pitts DO 03/31/2025 12:44:03 PM This report has been signed electronically. Number of Addenda: 0 Note Initiated On: 03/31/2025 12:01 PM
--- NOTE | 2025-03-31 12:55 | PCM.POST.ANE ---
Anesthesia: Postop Eval I Current Vital Signs Temperature: 97.3 F Pulse Rate: 71 Blood Pressure: 123/61 Respiratory Rate: 16 Pulse Ox: 95 Oxygen Delivery Method: Room Air Assessment Airway patent: Yes Spontaneous unlabored respirations: Yes Mental status: Asleep nausea: No Vomiting: No Anesthesia Complication: No Fluid Hydration Crystalloid volume administer (ml): 100 Total IV fluid infused: 100 Progress Note Anesthesia document: Postop Eval 1 completed: Yes
--- NOTE | 2025-03-31 13:40 | PCM.POSTANE2 ---
Anesthesia Postop Eval I Sum Postop Eval Completion status Anesthesia document: Postop Eval 1 completed: Yes Anesthesia Postop Eval I Summary Anesthesia Postop Eval I Summary: Anesthesia Postop Eval I: Assessment Summary Airway patent Yes 03/31/25 12:57 [email or web address] Spontaneous unlabored Yes 03/31/25 12:57 [email or web address] respirations Mental status Asleep 03/31/25 12:57 [email or web address] nausea No 03/31/25 12:57 [email or web address] Vomiting No 03/31/25 12:57 [email or web address] Anesthesia Postop Eval I: Fluid Summary Crystalloid volume administer 100 03/31/25 12:57 [email or web address] (ml) Colloids volume administered ( ml) Blood Product volume administered (ml) Total IV fluid infused 100 03/31/25 12:57 [email or web address] Anesthesia Postop Eval I: Summary Notes Anesthesia Complication No 03/31/25 12:57 [email or web address] Anesthesia Complication Comment: Post-operative progress note Anesthesia: Postop Eval II Evaluation Mental status: Awake Pain Level: 0 nausea: No Vomiting: No Progress Note Post-operative progress note: Repeated K+ twice in pre-op, found to be between 4.0 and 5.0. Instructed nursing to inform floor that patient potassium infusion should be held. Patient did well periprocedurally Complications Anesthesia Complication: No
[2025-03-31] MEDS: Ensure Clear 120 ML Liquid PO (14:28)
[2025-03-31] MEDS: Scopolamine 1mg/72hr Patch 1 PATCH TD (14:30)
[2025-03-31] MEDS: Budesonide 3 MG CAPSULE.EC 9 MG PO (14:31)
[2025-03-31] MEDS: APIXABAN 5 MG TABLET PO (20:57)
[2025-03-31] MEDS: buPROPion (SR) 150 MG Tablet.SA PO (20:57)
[2025-04-01 03:08] VITALS: BP 119/41; PULSE 70; RESP 16; TEMP 36.7; O2SAT 95
[2025-04-01 03:39] VITALS: BMI 31.8
[2025-04-01] MEDS: Glycerin/Hypromellose/PEG400 15 ml Bottle 1 DRP OPHTHALMIC ×2 (04:36→08:26)
[2025-04-01] MEDS: metroNIDAZOLE 500 MG/100 ML BAG 100 MG IV (05:27)
[2025-04-01 06:50] LABS: Hematocrit 37.7 % (37-47); Hemoglobin 11.9 g/dL (12.0-15.0); Immature Granulocytes Count 0.020 X10^3/uL (0.0-0.0); Mean Corp Hgb Conc 31.6 g/dL (32-36); Mean Corpuscular Volume 88.3 fL (81-99); Mean Platelet Vol. 11.2 fl (6.2-12.0); NRBC Flagged by Analyzer 0 % (0-5); POSITIVE DIFFERENTIAL YES; Platelet Count 189 K/mm3 (150-450); RBC Distribution Width CV 14.1 % (11.6-14.6); RBC Distribution Width SD 45.5 fl (35.1-43.9); Red Blood Count 4.27 M/mm3 (4.2-5.4); White Blood Count 4.3 K/mm3 (4.4-11.0)
[2025-04-01 07:14] LABS: Anion Gap 10 (5-15); BUN 3 mg/dL (4-19); BUN/Creat Ratio 6.0 RATIO (10-20); Calcium,Total 9.1 mg/dL (7.6-11.0); Carbon Dioxide 20.3 mmol/L (21.0-32.0); Chloride 103 mmol/L (98-108); Estimated Creatinine Clearance 68.09 ml/min (50-250); Glucose 92 mg/dL (70-99); Potassium 4.0 mmol/L (3.3-5.1)
[2025-04-01 08:22] VITALS: BP 154/60; PULSE 68; RESP 16; TEMP 36.7; O2SAT 98
[2025-04-01] MEDS: Budesonide 3 MG CAPSULE.EC 9 MG PO (08:25)
[2025-04-01] MEDS: APIXABAN 5 MG TABLET PO (08:26)
[2025-04-01] MEDS: Fluticasone 0.05% 1 SPRAY NASAL.SRY 2 SPRAY NASAL (08:29)
[2025-04-01] MEDS: 0.9% Normal Saline (250mL Bag) 250 ML 15 ML IV (08:30)
--- NOTE | 2025-04-01 13:41 | PCM.DC.SUM ---
Providers Date of Admission: 03/27/25 Date of Discharge: 04/01/25 Primary Care Physician: Ciara Dhillon, SWATHI Consultations 03/27/25 19:36 Consult: Gastroenterology Routine Consulting Provider: [facility] Reason for Consult: RUQ/Epigastric pain EMERGENT Consult: No MD Notified: Yes Date Notified: 03/27/25 Time Notified: 19:36 Method of Notification: Verbal Reason For Visit: RUQ PAIN, DIVERTICULITIS Diagnosis Discharge Diagnosis (1) Diverticulitis of sigmoid colon: Status: Acute Code(s): K57.32 - Diverticulitis of large intestine without perforation or abscess without bleeding Plan #Diverticulitis of the sigmoid colon admitted with a complaint of abdominal pain. CT abdomen showed sigmoid diverticulitis and proctitis on metronidazole and ceftriaxone had only one episode of bowel movement in the early hours of this morning; sample sent for enteric panel GI on board. GI is concerned about radiation induced injury to the rectum and colon. For colonoscopy today due to concerns about radiation proctitis #Chronic diarrhea, nausea and vomiting with abdominal pain and GI on board. this is chronic. follows up with GI on outpatient basis. GI on board. Has had random colonic biopsy, and noninvasive workup for chronic pancreatic insufficiency and Crohn's disease was negative. For colonoscopy today. Gastric emptying study (one hour) was normal yesterday. colonscopy today showed mucosal ulceration with 5mm polyp at hte hepatic flexure, congested mucosa in the entire examined colon which was biopsied, and diverticulosis in the rectosigmoid colon and in the descending colon. #History of anal cancer: s/p chemoradiation. In remission. Had flexible sigmoidoscopy with biopsy by Dr Garcia in 02/2025. Biopsy was negative for malignancy and showed benign squamous mucosa with hyperkeratosis. #Chronic psoriatic arthritis and Sjogren's disease: stable. PT/OT On board. To follow up with rheumatology on outpatient basis #History of chronic dysphagia: s/p Vanessa fundoplication. #HFpEF: not in exacerbation. #Hypertension: on amlodipine #HYperlipidemia: on statin #History of COPD: not in exacerbation. On breathing treatment with bronchodilators. #History of DVT: on eliquis/ DVT prophylaxis: eliquis already. Medications at Discharge Home Medications albuterol sulfate 90 mcg/actuation aerosol inhaler 2 puff inhalation Q4H PRN PRN Shortness Of Breath 03/13/15 fluoxetine 20 mg capsule 60 mg PO QHS MENTAL HEALTH 12/13/15 peg [id number] 1 %-0.2 %-0.2 % eye drops (Dry Eye Relief) 1 drp OP 4X/DAY DRY EYES 11/13/17 leflunomide 20 mg tablet (Arava) 20 mg PO QHS RA 03/22/18 amlodipine 5 mg tablet 7.5 mg PO DAILY BP 08/15/22 mometasone 50 mcg/actuation nasal spray 2 spray intranasal DAILY ALLERGIES 08/15/22 abatacept 50 mg/0.4 mL subcutaneous syringe (Orencia) 50 mg subcut QMONTH RA 12/17/22 acetaminophen 500 mg tablet 1,000 mg PO Q6H PRN fever or pain 11/15/23 atorvastatin 80 mg tablet 80 mg PO QHS CHOLESTEROL 11/15/23 meclizine 25 mg tablet 25 mg PO QHS PRN PRN dizziness 03/17/24 bupropion HCl (smoking deter) 150 mg tablet,12 hr sustained-release(smoking deterrent) 150 mg PO QHS DEPRESSION 09/02/24 cholecalciferol (vitamin D3) 1,250 mcg (50,000 unit) capsule 1,250 mcg PO Q14D REPLACEMENT 10/24/24 furosemide 20 mg tablet 20 mg PO DAILY WATER PILL 10/24/24 alprazolam 1 mg tablet 1 mg PO TID ANXIETY 30 days #90 tabs 12/02/24 diphenoxylate-atropine 2.5 mg-0.025 mg tablet (Lomotil) 1 tab PO TID PRN diarrhea #90 tabs 02/02/25 tramadol 50 mg tablet 50 mg PO Q6H PRN PRN pain 02/24/25 prochlorperazine maleate 10 mg tablet (Compazine) 10 mg PO TID PRN nausea and vomiting #30 tabs 03/16/25 apixaban 5 mg tablet (Eliquis) 5 mg PO BID HX DVT, CAROTID ARTERY DISEASE 03/27/25 primidone 50 mg tablet 100 mg PO QHS TREMORS 03/27/25 amoxicillin 875 mg-potassium clavulanate 125 mg tablet 1 tab PO BID #10 tabs 04/01/25 Hospital Course Operations None Procedures Colonoscopy Summary of Care Provided Minutes Spent on Discharge: 45 Hospital Course: Patient is a 64-year-old female with a past medical history as outlined including anal cancer s/p chemoradiation completed in October 2024 and suspected Crohn's disease and chronic pancreatic insufficiency was admitted to the ED on 03/27/2025 with complaint of worsening right sided abdominal pain with radiation to the right upper back as well as nausea and vomiting and diarrhea. She had been following up with gastroenterology on outpatient basis. She also had a history of hiatal hernia and was s/p Vanessa's from Dr. Martínez in 2019. She had had workup for Crohn's disease and pancreatic insufficiency noninvasively but these were negative. She was on Creon and budesonide but her symptoms were not getting better. She had been vomiting and felt dehydrated so she came to the ED where CT of the abdomen and pelvis showed distal sigmoid colon rectal thickening in the pericolonic fat with concerns for diverticulitis and proctitis. She was admitted and managed for diverticulitis and started on IV metronidazole and ceftriaxone. Gastroenterology was consulted and was concerned about radiation-induced injury to the rectum and colon. Enteric panel was negative. She had colonoscopy on 03/31/2025 which showed mucosal ulceration which was biopsied and one 5 mm polyp at this hepatic flexure which was resected and retrieved and congested mucosa in the entire examined colon as well as diverticulosis in the rectosigmoid colon, sigmoid colon and descending colon. Patient subsequently felt much better and was able to tolerate her diet. Her diet was advanced to a regular diet and she tolerated it. She was therefore discharged on 04/01/2025 on p.o. Augmentin for 5 days. She is to follow-up with her PCP and gastroenterology within 1 to 2 weeks. Patient seen and examined prior to discharge. She felt much better and had no complaints. She had an uneventful night. Review of systems otherwise negative. Labs and vitals reviewed. Medication reviewed and reconciled. Physical Exam Const alert, oriented x3 and no apparent distress General Appearance: cooperative, comfortable, well kempt and well developed HEENT normocephalic, head/scalp atraumatic, hearing grossly normal bilaterally, moist oral mucous membranes and oropharynx normal Mouth: oral and palatal mucosa normal Eyes PERRL and EOMs intact bilaterally Neck supple and no JVD Lymph Lymphatic: no lymphedema noted Resp normal respiratory effort, normal air movement, no retractions, no use of accessory muscles and clear to auscultation bilaterally Cardio regular rate, regular rhythm, S1 normal heart sound, S2 normal heart sound and no murmurs GI normal to inspection, nondistended, normoactive bowel sounds, soft to palpation, non-tender and non-distended Extremity normal to inspection, full ROM and normal capillary refill General Extremity: no tenderness to palpation of joints or extremities Skin no rashes or lesions noted General Skin Exam: no breakdown Neuro oriented x3, moves all extremities, no focal motor deficits and no sensory deficits noted Sensorium / Orientation: awake and alert Motor Exam: general weakness Psych thought process normal, cooperative and affect normal Appearance: appropriate Medical Records Data Medical Nutrition Assessment Dietitian: Malnutrition Criteria Met Start: 03/28/25 11:39 Freq: Status: Active Protocol: Document 03/28/25 11:39 (Rec: 03/28/25 11:39 [id number]) Nutrition Malnutrition Evidence of Yes Malnutrition Exists Malnutrition (severe Acute Illness/Injury ): Evidenced By Suboptimal Energy Intake (Severe),Weight Loss (Severe) Clinical Problem Acute Disease or Injury Related Malnutrition Etiology severe related to nausea/vomiting Signs/Symptoms as evidenced by 20.7lbs (11.4%) weight loss in 1 month and PO intakes <75% of estimated nutrition needs for ~1 month Status Active Problem Recommendation Dietitian Advance diet as tolerated to Low Fiber as medically Recommendations/ able to manage medical conditions. Changes Will order 240mL Ensure Clear mixed tanner TID with meals to provide supplemental energy. Recommend Ensure Plus High Protein when diet advances. Weight / BMI Weight Weight: 173 lb 6.297 oz Body Mass Index (BMI) 31.8 ABG / Lab / Microbiology Data 04/01/25 06:08 04/01/25 06:08 Laboratory: Laboratory Results - last 24 hr 04/01/25 06:08: WBC 4.3 L, RBC 4.27, Hgb 11.9 L, Hct 37.7, MCV 88.3, MCH 27.9, MCHC 31.6 L, RDW Std Deviation 45.5 H, RDW Coeff of [place] 14.1, Plt Count 189, MPV 11.2, Immature Gran % (Auto) 0.500, Neut % (Auto) 77.4 H, Lymph % (Auto) 9.6 L, [place] % (Auto) 11.3 H, Eos % (Auto) 0.5, Baso % (Auto) 0.7, Absolute Neuts (auto) 3.3, Absolute Lymphs (auto) 0.41 L, Nucleated RBC % 0, Sodium 134, Potassium 4.0, Chloride 103, Carbon Dioxide 20.3 L, Anion Gap 10, BUN 3 L, Creatinine 0.54 L, Estim Creat Clear Calc 68.09, Est GFR (MDRD) Non-Af 102, BUN/Creatinine Ratio 6.0 L, Glucose 92, Calcium 9.1 Microbiology: Microbiology 03/29/25 03:35 Stool Enteric Bacteriology - Final 03/29/25 09:35 Stool Stool Lactoferrin - Final 03/29/25 09:35 Stool Clostridioides difficile (PCR) - Final D/C Instructions Discharge Activity: Return to Normal Activity Weight Bearing Status: Weight bearing as tolerated Call your doctor if you observe: Fever of 101 or Higher, Shortness of breath, Dizziness, Swelling in the ankles and Chest pain DC O2, CPAP, BIPAP Needs Home O2 Discharge instructions: No DC home with Oxygen: No Meaningful Use Info Meaningful Use Meaningful Use Diagnoses (Choose all that apply): None applicable Discharge Plan Admission Admit Date/Time: 03/27/25 18:58 Primary Reason for Your Visit: diverticulitis Attending Provider: Angie Trent Primary Care Provider: Ciara Dhillon NP Consulting Providers: Colton Alva; Andrez Pitts; Jessica Gordillo; Michelle Baker; Trinh Adkins; Lincoln Voss Instructions Patient Instructions: Diverticulitis Dc Discharge Orders/Prescriptions Prescriptions: New amoxicillin-pot clavulanate 875-125 mg tablet 1 tab PO BID Qty: 10 0RF Continued mometasone 50 mcg/actuation spray,non-aerosol 2 spray intranasal DAILY Rx Instructions: administer into each nostril amlodipine 5 mg tablet 7.5 mg PO DAILY Orencia 50 mg/0.4 mL syringe 50 mg subcut QMONTH acetaminophen 500 mg tablet 1,000 mg PO Q6H PRN (Reason: fever or pain) atorvastatin 80 mg tablet 80 mg PO QHS Rx Instructions: ON HOLD FOR 10 DAYS , RESUM MAR 30, 2025 diphenoxylate-atropine [Lomotil] 2.5-0.025 mg tablet 1 tab PO TID PRN (Reason: diarrhea) Qty: 90 0RF prochlorperazine maleate [Compazine] 10 mg tablet 10 mg PO TID PRN (Reason: nausea and vomiting) Qty: 30 1RF albuterol sulfate 1 INHALER inhaler 2 puff INHALATION Q4H PRN PRN (Reason: Shortness Of Breath) Patient Comments: BREATING fluoxetine 20 MG capsule 60 mg PO QHS Patient Comments: ANXIETY Dry Eye Relief 15 ML drops 1 drp OP 4X/DAY leflunomide [Arava] 20 tablet 20 mg PO QHS Patient Comments: meclizine 25 mg tablet 25 mg PO QHS PRN PRN (Reason: dizziness) bupropion HCl (smoking deter) 150 mg tablet extended release 12 hr 150 mg PO QHS tramadol 50 mg tablet 50 mg PO Q6H PRN PRN (Reason: pain) primidone 50 mg tablet 100 mg PO QHS Eliquis 5 mg tablet 5 mg PO BID cholecalciferol (vitamin D3) 1,250 mcg (50,000 unit) capsule 1,250 mcg PO Q14D Rx Instructions: SUNDAYS DUE 03/28 furosemide 20 mg tablet 20 mg PO DAILY alprazolam 1 mg tablet 1 mg PO TID 30 Days Qty: 90 2RF Referrals / Follow Up: Andrez Pitts DO [Med Staff - Active Staff] - Within 2 Weeks Ciara Dhillon NP, [employer] [Primary Care Provider] - Within 1 Week Disposition Disposition (needs filled in before D/C Order can be placed): Home, Self Care Charges/Coding Visit Charges Inpatient E&M: 49337 Disch Hosp >30min
[2025-04-01 14:11] VITALS: BP 114/54; PULSE 68; RESP 16; TEMP 36.9; O2SAT 98
== END 2025-04-01 14:19 | disposition home or self-care (01) | DRG 393 ==
LOC: ED 18:50 → MS3 19:16
PROVIDERS: Internal Medicine Gastroenterology; Student in an Organized Health Care Education/Training Program; Admitting Provider Internal Medicine; Emergency Provider Emergency Medicine; PCP Nurse Practitioner Family; Visit Provider Student in an Organized Health Care Education/Training Program
PROC: 0DJD8ZZ Inspection of Lower Intestinal Tract, Via Natural or Artificial Opening Endoscopic (ICD-10-PCS; CPT 45378; principal; 2025-03-31 11:25)
DX: K62.7 Radiation proctitis (principal); E43 Unspecified severe protein-calorie malnutrition; I50.32 Chronic diastolic (congestive) heart failure; K57.32 Diverticulitis of large intestine without perforation or abscess without bleeding; I11.0 Hypertensive heart disease with heart failure; Z68.31 Body mass index [BMI] 31.0-31.9, adult; M35.00 Sjogren syndrome, unspecified; L40.50 Arthropathic psoriasis, unspecified; E78.5 Hyperlipidemia, unspecified; I25.10 Atherosclerotic heart disease of native coronary artery without angina pectoris; F41.9 Anxiety disorder, unspecified; D12.3 Benign neoplasm of transverse colon; Y84.2 Radiological procedure and radiotherapy as the cause of abnormal reaction of the patient, or of later complication, without mention of misadventure at the time of the procedure; Z79.01 Long term (current) use of anticoagulants; Z79.899 Other long term (current) drug therapy; Z85.048 Personal history of other malignant neoplasm of rectum, rectosigmoid junction, and anus; Z92.21 Personal history of antineoplastic chemotherapy; Z92.3 Personal history of irradiation; Z86.718 Personal history of other venous thrombosis and embolism; Z87.891 Personal history of nicotine dependence
CPT/HCPCS: 36415; 74177; 78264; 80048; 80076; 81001; 83630; 83690; 83735; 84132; 85025; 85610; 85652; 85730; 86140; 87177; 87209; 87493; 87506; 88304; 88305; 88312; 92610; 93005; 94668; 97161; 97165; 99285; A9541; Q9967; A4216; J0744; J2405

== ENCOUNTER → 2025-04-16 | Outpatient (CLI) | payer MEDICARE, MEDICAID, SELFPAY ==
--- NOTE | 2025-04-16 10:36 | NM_ITS ---
PROCEDURE: HEPATOBILLIARY IMG W/PHARM INT 04/16/2025 REASON FOR EXAM: RUQ PAIN, NAUSEA TECHNIQUE: Procedure Code: NMHBIWP Modality: NM Procedure: HEPATOBILLIARY IMG W/PHARM INT Intravenous Choletec with planar imaging of the abdomen. 1.4 mcg Kinevac intravenously approximately 60 minutes after the radiopharmaceutical with additional anterior imaging and a region of interest drawn around the gallbladder to calculate a time-activity curve. RADIOPHARMACEUTICAL: Mebrofenin DOSE 5.2mCi COMPARISON: None FINDINGS: There is good uptake of the radiopharmaceutical by the liver. Normal gallbladder visualization with the gallbladder identified by 60 minutes. Gallbladder Ejection Fraction: 93 % (Normal is >35%) NM/Hepatobilliary Img w/Pharm Int IMPRESSION: Normal gallbladder ejection fraction. Reading Location: [place] [id number]
[2025-04-16] MEDS: 0.9% Saline Lock 10 ML Syringe IV (12:35)
== END | disposition home or self-care (01) ==
PROVIDERS: PCP Nurse Practitioner Family; Referring Provider Nurse Practitioner Acute Care; Visit Provider Nurse Practitioner Acute Care
DX: R10.11 Right upper quadrant pain (principal); R13.10 Dysphagia, unspecified
CPT/HCPCS: 78227; A9537; J2805

== ENCOUNTER → 2025-04-19 | Outpatient (CLI) | payer MEDICARE, MEDICAID, SELFPAY ==
--- NOTE | 2025-04-19 10:00 | RAD_ITS ---
PROCEDURE: ESOPHAGUS DUAL CONTRAST 04/19/2025 REASON FOR EXAM: DYSPHAGIA Dysphagia for solids. TECHNIQUE: ESOPHAGUS DUAL CONTRAST FLUOROSCOPIC TIME: 50 seconds. Radiation dose: 7.5 mGy FLUOROGRAPHIC IMAGES: 60 COMPARISON: None FINDINGS: There is web-like stenosis in the distal portion of the esophagus just proximal to the gastroesophageal junction with a small hiatal hernia. When the patient ingested a 12 mm tablet the barium, the tablet is stuck at that level. Endoscopic correlation recommended. RAD/Esophagus Dual Contrast IMPRESSION: Web-like stenosis in the distal portion of the esophagus just proximal to the g astroesophageal junction. There is trapping of the tablet at that level. Endoscopic correlation recommended for further evalu ation. Reading Location: [place] [address]
== END | disposition home or self-care (01) ==
LOC: RAD 09:44
PROVIDERS: PCP Nurse Practitioner Family; Referring Provider Nurse Practitioner Acute Care; Visit Provider Nurse Practitioner Acute Care
DX: R13.10 Dysphagia, unspecified (principal); K58.0 Irritable bowel syndrome with diarrhea; R19.7 Diarrhea, unspecified
CPT/HCPCS: 74221

== ENCOUNTER 2025-05-12 08:11 | Day surgery (SDC) | payer MEDICARE, MEDICAID, SELFPAY ==
--- NOTE | 2025-05-10 10:49 | PAT.ANESEVAL ---
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 When Was Last Pacemaker Check QUESTION #4 FULL TEXT: You/Your Family Experience fever (hyperthermia) with Anesthesia Last Oral Intake Last Oral intake: Last Oral Intake NPO since Meds taken in AM with sips of water? 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 - timber setter Female Yes 05/10/25 08:30 HX of Motion Sickness No 05/10/25 08:30 HX of N/V After Surgery No 05/10/25 08:30 Non-Smoker Yes 05/10/25 08:30 Duration of Surgery greater No 05/10/25 08:30 than 60 minutes Number of Risk Factors 2 05/10/25 08:30 PONV Score Moderate Risk 05/10/25 08:30 Height & Weight Height & Weight: Anesthesia: Height & Weight Height 5 ft 2 in 04/06/25 11:15 Respiratory Assessment Respiratory Assessment - timber setter: Respiratory Tract Infection Hx - timber setter Hx Respiratory Tract Infection No 05/10/25 08:30 STOP Sleep Apnea STOP Sleep Apnea - timber setter: STOP Sleep Apnea - timber setter Hx Hypertension Yes: CONTROLLED ON MED 05/10/25 08:30 Hx Sleep Apnea No 05/10/25 08:30 CPAP No 05/10/25 08:30 BIPAP No 05/10/25 08:30 Do you snore loudly (louder No 05/10/25 08:30 than talking or can be heard Do you often feel tired/ No 05/10/25 08:30 fatigued/ sleepy during daytime? Has anyone observed you stop No 05/10/25 08:30 breathing during sleep? STOP Results Negative 05/10/25 08:30 QUESTION #5 FULL TEXT : Do you snore loudly (louder than talking or can be heard through closed doors)? 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 Specify any problems Hx of Preganancy in last 3 No 05/10/25 08:30 Months Nurse Filling Out Transfusion VCHRISTIN 05/10/25 08:30 & Questions: Date: 05/10/25 05/10/25 08:30 Time: 08:32 05/10/25 08:30 Patient unable to answer at this time (ie. 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 History - timber setter: /Reproductive Hx- timber setter Hx Now No 05/10/25 08:30 Gestational Age (in weeks): EDC: Hx Hx Para Hx Section SAB No 05/10/25 08:30 [facility] Medical History (Updated 05/10/25 @ 08:30 by Conchis Kathleen) Hx of sigmoidoscopy Protein calorie malnutrition Diverticulitis of sigmoid colon Nausea and vomiting Epigastric abdominal pain Cancer Walker as ambulation aid DVT (deep venous thrombosis) Gastric reflux Crohn disease 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 Mass of anus Perirectal abscess History of Crohn's disease Pancreatic insufficiency Crohn disease Psoriatic arthritis Psoriasis Internal derangement of right knee Wears glasses Post-menopausal Depression Anxiety Ambulates with cane Injury of back Difficulty swallowing History of IBS History of hiatal hernia Former smoker Shortness of breath on exertion Chronic cough History of echocardiogram History of stress test Hypertension Cardiology follow-up encounter History of CHF (congestive heart failure) History of irregular heartbeat Acute pharyngitis, unspecified URI (upper respiratory infection) Contact with or suspected exposure to other viral communicable disease History of partial replacement of left hip joint using bipolar prosthesis Vitamin D deficiency HLD (hyperlipidemia) Insomnia Dry eye Regular astigmatism, bilateral PVCs (premature ventricular contractions) Coronary artery stenosis Chronic diastolic CHF (congestive heart failure) Iron malabsorption Osteoarthritis Lumbar spondylosis Osteoporosis Congenital cataract Intermittent palpitations Nausea TIA (transient ischemic attack) Acute maxillary sinusitis, unspecified Acute ethmoidal sinusitis, unspecified Acute frontal sinusitis, unspecified COPD exacerbation Foreign body in conjunctival sac, left eye, initial encounter Acute bacterial conjunctivitis Influenza A Acute bronchitis Back pain Limb weakness Asthma Anemia Arthritis Home Medications ?Medication ?Instructions ?Recorded ?Last Taken ?Type albuterol sulfate 90 mcg/actuation 2 puff inhalation Q4H PRN PRN 03/13/15 Unknown History aerosol inhaler Shortness Of Breath fluoxetine 20 mg capsule 60 mg PO QHS MENTAL HEALTH 12/13/15 09/01/24 History peg [id number] 1 1 drp OP 4X/DAY DRY EYES 11/13/17 03/19/24 History %-0.2 %-0.2 % eye drops (Dry Eye Relief) leflunomide 20 mg tablet (Arava) 20 mg PO QHS RA 03/22/18 09/01/24 History amlodipine 5 mg tablet 7.5 mg PO DAILY BP 08/15/22 03/02/25 06:30 History mometasone 50 mcg/actuation nasal 2 spray intranasal DAILY ALLERGIES 08/15/22 09/01/24 History spray abatacept 50 mg/0.4 mL 50 mg subcut QMONTH RA 12/17/22 02/18/25 History subcutaneous syringe (Orencia) acetaminophen 500 mg tablet 1,000 mg PO Q6H PRN fever or pain 11/15/23 09/01/24 History atorvastatin 80 mg tablet 80 mg PO QHS CHOLESTEROL 11/15/23 09/01/24 History meclizine 25 mg tablet 25 mg PO QHS PRN PRN dizziness 03/17/24 03/02/25 06:30 History bupropion HCl (smoking deter) 150 150 mg PO QHS DEPRESSION 09/02/24 09/01/24 History mg tablet,12 hr sustained-release(smoking deterrent) cholecalciferol (vitamin D3) 1,250 1,250 mcg PO Q14D REPLACEMENT 10/24/24 Unknown History mcg (50,000 unit) capsule furosemide 20 mg tablet 20 mg PO DAILY WATER PILL 10/24/24 Unknown History alprazolam 1 mg tablet 1 mg PO TID ANXIETY 30 days #90 12/02/24 Unknown Rx tabs diphenoxylate-atropine 2.5 1 tab PO TID PRN diarrhea #90 tabs 02/02/25 Unknown Rx mg-0.025 mg tablet (Lomotil) prochlorperazine maleate 10 mg 10 mg PO TID PRN nausea and 03/16/25 Unknown Rx tablet (Compazine) vomiting #30 tabs apixaban 5 mg tablet (Eliquis) 5 mg PO BID HX DVT, CAROTID ARTERY 03/27/25 05/03/25 History DISEASE primidone 50 mg tablet 100 mg PO QHS TREMORS 03/27/25 Unknown History pantoprazole 40 mg tablet,delayed 40 mg PO QDAY #90 tabs 04/21/25 Unknown Rx release scopolamine base 1 mg over 3 days 1 patch topical Q3D #10 patches 05/04/25 Unknown Rx transdermal patch Allergy/AdvReac Type Severity Reaction Status Date / Time doxycycline calcium (From Allergy Anaphylaxis Verified 05/10/25 08:20 Vibramycin) doxycycline hyclate (From Allergy Anaphylaxis Verified 05/10/25 08:20 Vibramycin) doxycycline monohydrate Allergy Anaphylaxis Verified 05/10/25 08:20 (From Vibramycin) NSAIDS (Non-Steroidal Allergy Anaphylaxis Verified 05/10/25 08:20 Anti-Inflamma duloxetine (From Cymbalta) AdvReac HEADACHE Verified 05/10/25 08:20 AND UPSET STOMACH hydrocodone bitartrate (From AdvReac STOMACH Verified 05/10/25 08:20 Vicodin) UPSET hydromorphone HCl (From AdvReac Vomiting Verified 05/10/25 08:20 Dilaudid) morphine AdvReac Vomiting Verified 05/10/25 08:20 Family History Mother Asthma Hypertension Kidney disease Father Asthma Myocardial infarction Daughter Asthma Diabetes Hypertension Sister Asthma Hypertension Surgical History (Updated 05/10/25 @ 08:30 by Conchis Kathleen) History of left hip replacement History of total right knee replacement (TKR) S/P total knee arthroplasty Hx of esophagogastroduodenoscopy History of cardiac catheterization S/P repair of paraesophageal hernia History of Vanessa fundoplication H/O adenoidectomy History of tonsillectomy H/O hernia repair History of total left knee replacement Hx of section H/O shoulder surgery Social History household members: family housing: house Smoking Status: Former smoker quit date: 07/29/13 alcohol intake: never substance use type: does not use Audit: Pertinent Findings Pertinent Findings EKG Perinent findings: 03/27/2025. Sinus rhythm with occasional PVCs. 71 bpm. LVH with repull abnormality. Recommendation Anesthesia Recommendation Anesthesia recommendation: OPTIMIZED for anesthesia
--- NOTE | 2025-05-10 10:49 | PAT.ANESEVAL ---
Pre-Assessment Diagnosis/Proposed Procedure Planned Operative Procedure(s): EGD Anesthesia History Anesthesia History - kinesiotherapist: Anesthesia History - kinesiotherapist Hx Hospitalization Yes: AUG 2024, ANAL CANCER 05/10/25 08:30 Any Problems With Anesthesia No 05/10/25 08:30 Cholinesterase deficiency No 05/10/25 08:30 You/Your Family Experience No 05/10/25 08:30 fever (hyperthermia) with Relationship Recent Exposure to Contagious No 03/30/25 05:35 Disease Does patient have nerve No 05/10/25 08:30 stimulator Patient instructed to have device shut off --Does patient have Pacemaker or ICD? When Was Last Pacemaker Check QUESTION #4 FULL TEXT: You/Your Family Experience fever (hyperthermia) with Anesthesia Last Oral Intake Last Oral intake: Last Oral Intake NPO since Meds taken in AM with sips of water? Meds patient instructed to take am of surgery PONV PONV - kinesiotherapist: PONV - kinesiotherapist Female Yes 05/10/25 08:30 HX of Motion Sickness No 05/10/25 08:30 HX of N/V After Surgery No 05/10/25 08:30 Non-Smoker Yes 05/10/25 08:30 Duration of Surgery greater No 05/10/25 08:30 than 60 minutes Number of Risk Factors 2 05/10/25 08:30 PONV Score Moderate Risk 05/10/25 08:30 Height & Weight Height & Weight: Anesthesia: Height & Weight Height 5 ft 2 in 04/06/25 11:15 Respiratory Assessment Respiratory Assessment - kinesiotherapist: Respiratory Tract Infection Hx - kinesiotherapist Hx Respiratory Tract Infection No 05/10/25 08:30 STOP Sleep Apnea STOP Sleep Apnea - kinesiotherapist: STOP Sleep Apnea - kinesiotherapist Hx Hypertension Yes: CONTROLLED ON MED 05/10/25 08:30 Hx Sleep Apnea No 05/10/25 08:30 CPAP No 05/10/25 08:30 BIPAP No 05/10/25 08:30 Do you snore loudly (louder No 05/10/25 08:30 than talking or can be heard Do you often feel tired/ No 05/10/25 08:30 fatigued/ sleepy during daytime? Has anyone observed you stop No 05/10/25 08:30 breathing during sleep? STOP Results Negative 05/10/25 08:30 QUESTION #5 FULL TEXT : Do you snore loudly (louder than talking or can be heard through closed doors)? Tobacco Use History Tobacco Use History - kinesiotherapist: Tobacco Use History - kinesiotherapist Tobacco Use Smoking Status Former smoker 05/10/25 08:30 Hx Tobacco Use No 05/10/25 08:30 Years Smoking Packs Smoked per Day Smoking Cessation Date was No - quit smoking greater 05/10/25 08:30 within the last 15 years than 15 years ago Hx Smoking Cessation Date 12/27/13 05/10/25 08:30 Hx Smoking Cessation No 05/10/25 08:30 Counseling Hematologic Medial History Hematologic Hx - kinesiotherapist: Hematologic Medical Hx - patient care representative Hx of Blood Transfusion Yes 05/10/25 08:30 Hx of Transfusion in last 3 No 05/10/25 08:30 Months Date of Last Transfusion (if within last 3 months) Ever experience any problems No 05/10/25 08:30 with transfusion(s)? Specify any problems Hx of Preganancy in last 3 No 05/10/25 08:30 Months Nurse Filling Out Transfusion VCHRISTIN 05/10/25 08:30 & Questions: Date: 05/10/25 05/10/25 08:30 Time: 08:32 05/10/25 08:30 Patient unable to answer at this time (ie. 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 History - kinesiotherapist: /Reproductive Hx- kinesiotherapist Hx Now No 05/10/25 08:30 Gestational Age (in weeks): EDC: Hx Hx Para Hx Section SAB No 05/10/25 08:30 [facility] Medical History (Updated 05/10/25 @ 08:30 by Conchis Kathleen) Hx of sigmoidoscopy Protein calorie malnutrition Diverticulitis of sigmoid colon Nausea and vomiting Epigastric abdominal pain Cancer Walker as ambulation aid DVT (deep venous thrombosis) Gastric reflux Crohn disease 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 Mass of anus Perirectal abscess History of Crohn's disease Pancreatic insufficiency Crohn disease Psoriatic arthritis Psoriasis Internal derangement of right knee Wears glasses Post-menopausal Depression Anxiety Ambulates with cane Injury of back Difficulty swallowing History of IBS History of hiatal hernia Former smoker Shortness of breath on exertion Chronic cough History of echocardiogram History of stress test Hypertension Cardiology follow-up encounter History of CHF (congestive heart failure) History of irregular heartbeat Acute pharyngitis, unspecified URI (upper respiratory infection) Contact with or suspected exposure to other viral communicable disease History of partial replacement of left hip joint using bipolar prosthesis Vitamin D deficiency HLD (hyperlipidemia) Insomnia Dry eye Regular astigmatism, bilateral PVCs (premature ventricular contractions) Coronary artery stenosis Chronic diastolic CHF (congestive heart failure) Iron malabsorption Osteoarthritis Lumbar spondylosis Osteoporosis Congenital cataract Intermittent palpitations Nausea TIA (transient ischemic attack) Acute maxillary sinusitis, unspecified Acute ethmoidal sinusitis, unspecified Acute frontal sinusitis, unspecified COPD exacerbation Foreign body in conjunctival sac, left eye, initial encounter Acute bacterial conjunctivitis Influenza A Acute bronchitis Back pain Limb weakness Asthma Anemia Arthritis Home Medications ?Medication ?Instructions ?Recorded ?Last Taken ?Type albuterol sulfate 90 mcg/actuation 2 puff inhalation Q4H PRN PRN 03/13/15 Unknown History aerosol inhaler Shortness Of Breath fluoxetine 20 mg capsule 60 mg PO QHS MENTAL HEALTH 12/13/15 09/01/24 History peg [id number] 1 1 drp OP 4X/DAY DRY EYES 11/13/17 03/19/24 History %-0.2 %-0.2 % eye drops (Dry Eye Relief) leflunomide 20 mg tablet (Arava) 20 mg PO QHS RA 03/22/18 09/01/24 History amlodipine 5 mg tablet 7.5 mg PO DAILY BP 08/15/22 03/02/25 06:30 History mometasone 50 mcg/actuation nasal 2 spray intranasal DAILY ALLERGIES 08/15/22 09/01/24 History spray abatacept 50 mg/0.4 mL 50 mg subcut QMONTH RA 12/17/22 02/18/25 History subcutaneous syringe (Orencia) acetaminophen 500 mg tablet 1,000 mg PO Q6H PRN fever or pain 11/15/23 09/01/24 History atorvastatin 80 mg tablet 80 mg PO QHS CHOLESTEROL 11/15/23 09/01/24 History meclizine 25 mg tablet 25 mg PO QHS PRN PRN dizziness 03/17/24 03/02/25 06:30 History bupropion HCl (smoking deter) 150 150 mg PO QHS DEPRESSION 09/02/24 09/01/24 History mg tablet,12 hr sustained-release(smoking deterrent) cholecalciferol (vitamin D3) 1,250 1,250 mcg PO Q14D REPLACEMENT 10/24/24 Unknown History mcg (50,000 unit) capsule furosemide 20 mg tablet 20 mg PO DAILY WATER PILL 10/24/24 Unknown History alprazolam 1 mg tablet 1 mg PO TID ANXIETY 30 days #90 12/02/24 Unknown Rx tabs diphenoxylate-atropine 2.5 1 tab PO TID PRN diarrhea #90 tabs 02/02/25 Unknown Rx mg-0.025 mg tablet (Lomotil) prochlorperazine maleate 10 mg 10 mg PO TID PRN nausea and 03/16/25 Unknown Rx tablet (Compazine) vomiting #30 tabs apixaban 5 mg tablet (Eliquis) 5 mg PO BID HX DVT, CAROTID ARTERY 03/27/25 05/03/25 History DISEASE primidone 50 mg tablet 100 mg PO QHS TREMORS 03/27/25 Unknown History pantoprazole 40 mg tablet,delayed 40 mg PO QDAY #90 tabs 04/21/25 Unknown Rx release scopolamine base 1 mg over 3 days 1 patch topical Q3D #10 patches 05/04/25 Unknown Rx transdermal patch Allergy/AdvReac Type Severity Reaction Status Date / Time doxycycline calcium (From Allergy Anaphylaxis Verified 05/10/25 08:20 Vibramycin) doxycycline hyclate (From Allergy Anaphylaxis Verified 05/10/25 08:20 Vibramycin) doxycycline monohydrate Allergy Anaphylaxis Verified 05/10/25 08:20 (From Vibramycin) NSAIDS (Non-Steroidal Allergy Anaphylaxis Verified 05/10/25 08:20 Anti-Inflamma duloxetine (From Cymbalta) AdvReac HEADACHE Verified 05/10/25 08:20 AND UPSET STOMACH hydrocodone bitartrate (From AdvReac STOMACH Verified 05/10/25 08:20 Vicodin) UPSET hydromorphone HCl (From AdvReac Vomiting Verified 05/10/25 08:20 Dilaudid) morphine AdvReac Vomiting Verified 05/10/25 08:20 Family History Mother Asthma Hypertension Kidney disease Father Asthma Myocardial infarction Daughter Asthma Diabetes Hypertension Sister Asthma Hypertension Surgical History (Updated 05/10/25 @ 08:30 by Conchis Kathleen) History of left hip replacement History of total right knee replacement (TKR) S/P total knee arthroplasty Hx of esophagogastroduodenoscopy History of cardiac catheterization S/P repair of paraesophageal hernia History of Vanessa fundoplication H/O adenoidectomy History of tonsillectomy H/O hernia repair History of total left knee replacement Hx of section H/O shoulder surgery Social History household members: family housing: house Smoking Status: Former smoker quit date: 07/29/13 alcohol intake: never substance use type: does not use Audit: Pertinent Findings Pertinent Findings EKG Perinent findings: 03/27/2025. Sinus rhythm with occasional PVCs. 71 bpm. LVH with repull abnormality. Recommendation Anesthesia Recommendation Anesthesia recommendation: OPTIMIZED for anesthesia
[2025-05-12] VITALS (10 sets, daily range): BP systolic 97–114; BP diastolic 45–61; PULSE 69–74; RESP 16–17; TEMP 36.2–36.4; O2SAT 92–98; BMI 29.2
[2025-05-12] MEDS: Lactated Ringers 1,000 ML 15 ML IV (09:00)
--- NOTE | 2025-05-12 09:11 | PCM.PRE.AN2 ---
ASA Classification* ASA Classification ASA Classification: 3 Assessment & Plan Anesthesia* Anesthesia Assessment Anesthesia Assessment: Discussed sedation and/or anesthesia options, risks, benefits, and alternatives with patient/parents/legal guardian/POA. Questions invited. The patient/parents/legal guardian/POA seems to understand and agrees to proceed with anesthesia plan. Reviewed the physical assessment, medical history, allergy history and patient home medications list prior to surgery/procedure/anesthetic and documented any changes. Performed airway and anesthesia risk assessments. Anesthesia Type Anesthesia Type: MAC History Source History Obtained from:: Patient and Chart Anesthesia Focused Assessment* Temperature: 97.6 F Pulse Rate: 74 Blood Pressure: 110/45 Respiratory Rate: 17 Pulse Ox: 98 Oxygen Delivery Method: Room Air Airway Assessment Mouth opens: >3 cm Mallampati Score: II Teeth Condition: Missing (Only few lower teeth present) Neck Range of motion (ROM): Limited ROM Labs Anesthesia Preop lab: CBC WBC, (4.4-11.0) 4.3 K/mm3 L 04/01/25, 06:08 RBC, (4.2-5.4) 4.27 M/mm3 04/01/25, 06:08 Hgb, (12.0-15.0) 11.9 g/dL L 04/01/25, 06:08 Hct, (37-47) 37.7 % 04/01/25, 06:08 Plt Count, (150-450) 189 K/mm3 04/01/25, 06:08 CHEMISTRY Potassium, (3.3-5.1) 4.0 mmol/L 04/01/25, 06:08 Sodium, (133-145) 134 mmol/L 04/01/25, 06:08 Magnesium, (1.5-2.2) 1.9 mg/dL 03/31/25, 10:38 BUN, (4-19) 3 mg/dL L 04/01/25, 06:08 Creatinine, (0.70-1.20) 0.54 mg/dL L 04/01/25, 06:08 Glucose, (70-99) 92 mg/dL 04/01/25, 06:08 TSH, (0.358-3.74) 0.80 uIU/mL 11/21/15, 16:47 COAG PT, (11.7-14.9) 16.5 SECONDS H 03/31/25, 06:00 Pre-Assessment Diagnosis/Proposed Procedure Planned Operative Procedure(s): EGD Anesthesia History 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 When Was Last Pacemaker Check QUESTION #4 FULL TEXT: You/Your Family Experience fever (hyperthermia) with Anesthesia Last Oral Intake Last Oral intake: Last Oral Intake NPO since 00:00 05/12/25 08:56 Meds taken in AM with sips of Yes 05/12/25 08:56 water? Meds patient instructed to amlodipine, xanax, meclizine 05/12/25 08:56 take am of surgery , scopolamine patch PONV PONV - deck engineer: PONV - deck engineer Female Yes 05/10/25 08:30 HX of Motion Sickness No 05/10/25 08:30 HX of N/V After Surgery No 05/10/25 08:30 Non-Smoker Yes 05/10/25 08:30 Duration of Surgery greater No 05/10/25 08:30 than 60 minutes Number of Risk Factors 2 05/10/25 08:30 PONV Score Moderate Risk 05/10/25 08:30 Height & Weight Height & Weight: Anesthesia: Height & Weight Height 5 ft 3 in 05/12/25 08:56 Weight: 75 kg 05/12/25 08:56 Body Mass Index (BMI) 29.2 05/12/25 08:56 Respiratory Assessment Respiratory Assessment - deck engineer: Respiratory Tract Infection Hx - deck engineer Hx Respiratory Tract Infection No 05/10/25 08:30 STOP Sleep Apnea STOP Sleep Apnea - deck engineer: STOP Sleep Apnea - deck engineer Hx Hypertension Yes: CONTROLLED ON MED 05/10/25 08:30 Hx Sleep Apnea No 05/10/25 08:30 CPAP No 05/10/25 08:30 BIPAP No 05/10/25 08:30 Do you snore loudly (louder No 05/10/25 08:30 than talking or can be heard Do you often feel tired/ No 05/10/25 08:30 fatigued/ sleepy during daytime? Has anyone observed you stop No 05/10/25 08:30 breathing during sleep? STOP Results Negative 05/10/25 08:30 QUESTION #5 FULL TEXT : Do you snore loudly (louder than talking or can be heard through closed doors)? 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 Specify any problems Hx of Preganancy in last 3 No 05/10/25 08:30 Months Nurse Filling Out Transfusion VCHRISTIN 05/10/25 08:30 & Questions: Date: 05/10/25 05/10/25 08:30 Time: 08:32 05/10/25 08:30 Patient unable to answer at this time (ie. 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 History - deck engineer: /Reproductive Hx- deck engineer Hx Now No 05/10/25 08:30 Gestational Age (in weeks): EDC: Hx Hx Para Hx Section SAB No 05/10/25 08:30 Active Medications Active Medications: Current Medications Generic Name Dose Route Start Last Admin Trade Name Freq PRN Reason Stop Dose Admin Lactated Ringer's 1,000 mls @ 15 mls/hr 05/12/25 08:45 05/12/25 09:00 IV 15 mls/hr .Q48H NICOLE Administration PFSH Medical History Hx of sigmoidoscopy Protein calorie malnutrition Diverticulitis of sigmoid colon Nausea and vomiting Epigastric abdominal pain Cancer Walker as ambulation aid DVT (deep venous thrombosis) Gastric reflux Crohn disease 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 Mass of anus Perirectal abscess History of Crohn's disease Pancreatic insufficiency Crohn disease Psoriatic arthritis Psoriasis Internal derangement of right knee Wears glasses Post-menopausal Depression Anxiety Ambulates with cane Injury of back Difficulty swallowing History of IBS History of hiatal hernia Former smoker Shortness of breath on exertion Chronic cough History of echocardiogram History of stress test Hypertension Cardiology follow-up encounter History of CHF (congestive heart failure) History of irregular heartbeat Acute pharyngitis, unspecified URI (upper respiratory infection) Contact with or suspected exposure to other viral communicable disease History of partial replacement of left hip joint using bipolar prosthesis Vitamin D deficiency HLD (hyperlipidemia) Insomnia Dry eye Regular astigmatism, bilateral PVCs (premature ventricular contractions) Coronary artery stenosis Chronic diastolic CHF (congestive heart failure) Iron malabsorption Osteoarthritis Lumbar spondylosis Osteoporosis Congenital cataract Intermittent palpitations Nausea TIA (transient ischemic attack) Acute maxillary sinusitis, unspecified Acute ethmoidal sinusitis, unspecified Acute frontal sinusitis, unspecified COPD exacerbation Foreign body in conjunctival sac, left eye, initial encounter Acute bacterial conjunctivitis Influenza A Acute bronchitis Back pain Limb weakness Asthma Anemia Arthritis Home Medications ?Medication ?Instructions ?Recorded ?Last Taken ?Type albuterol sulfate 90 mcg/actuation 2 puff inhalation Q4H PRN PRN 03/13/15 Unknown History aerosol inhaler Shortness Of Breath fluoxetine 20 mg capsule 60 mg PO QHS MENTAL HEALTH 12/13/15 09/01/24 History peg [id number] 1 1 drp OP 4X/DAY DRY EYES 11/13/17 03/19/24 History %-0.2 %-0.2 % eye drops (Dry Eye Relief) leflunomide 20 mg tablet (Arava) 20 mg PO QHS RA 03/22/18 09/01/24 History amlodipine 5 mg tablet 7.5 mg PO DAILY BP 08/15/22 03/02/25 06:30 History mometasone 50 mcg/actuation nasal 2 spray intranasal DAILY ALLERGIES 08/15/22 09/01/24 History spray abatacept 50 mg/0.4 mL 50 mg subcut QMONTH RA 12/17/22 02/18/25 History subcutaneous syringe (Orencia) acetaminophen 500 mg tablet 1,000 mg PO Q6H PRN fever or pain 11/15/23 09/01/24 History atorvastatin 80 mg tablet 80 mg PO QHS CHOLESTEROL 11/15/23 09/01/24 History meclizine 25 mg tablet 25 mg PO QHS PRN PRN dizziness 03/17/24 03/02/25 06:30 History bupropion HCl (smoking deter) 150 150 mg PO QHS DEPRESSION 09/02/24 09/01/24 History mg tablet,12 hr sustained-release(smoking deterrent) cholecalciferol (vitamin D3) 1,250 1,250 mcg PO Q14D REPLACEMENT 10/24/24 Unknown History mcg (50,000 unit) capsule furosemide 20 mg tablet 20 mg PO DAILY WATER PILL 10/24/24 Unknown History diphenoxylate-atropine 2.5 1 tab PO TID PRN diarrhea #90 tabs 02/02/25 Unknown Rx mg-0.025 mg tablet (Lomotil) apixaban 5 mg tablet (Eliquis) 5 mg PO BID HX DVT, CAROTID ARTERY 03/27/25 05/03/25 History DISEASE primidone 50 mg tablet 100 mg PO QHS TREMORS 03/27/25 Unknown History pantoprazole 40 mg tablet,delayed 40 mg PO QDAY #90 tabs 04/21/25 Unknown Rx release scopolamine base 1 mg over 3 days 1 patch topical Q3D #10 patches 05/04/25 Unknown Rx transdermal patch alprazolam 1 mg tablet 1 mg PO TID ANXIETY 30 days #90 05/10/25 Unknown Rx tabs prochlorperazine maleate 10 mg 10 mg PO TID PRN nausea and 05/10/25 Unknown Rx tablet (Compazine) vomiting #30 tabs Allergy/AdvReac Type Severity Reaction Status Date / Time doxycycline calcium (From Allergy Anaphylaxis Verified 05/12/25 08:55 Vibramycin) doxycycline hyclate (From Allergy Anaphylaxis Verified 05/12/25 08:55 Vibramycin) doxycycline monohydrate Allergy Anaphylaxis Verified 05/12/25 08:55 (From Vibramycin) NSAIDS (Non-Steroidal Allergy Anaphylaxis Verified 05/12/25 08:55 Anti-Inflamma duloxetine (From Cymbalta) AdvReac HEADACHE Verified 05/12/25 08:55 AND UPSET STOMACH hydrocodone bitartrate (From AdvReac STOMACH Verified 05/12/25 08:55 Vicodin) UPSET hydromorphone HCl (From AdvReac Vomiting Verified 05/12/25 08:55 Dilaudid) morphine AdvReac Vomiting Verified 05/12/25 08:55 Family History Mother Asthma Hypertension Kidney disease Father Asthma Myocardial infarction Daughter Asthma Diabetes Hypertension Sister Asthma Hypertension Surgical History History of left hip replacement History of total right knee replacement (TKR) S/P total knee arthroplasty Hx of esophagogastroduodenoscopy History of cardiac catheterization S/P repair of paraesophageal hernia History of Vanessa fundoplication H/O adenoidectomy History of tonsillectomy H/O hernia repair History of total left knee replacement Hx of section H/O shoulder surgery Social History household members: family housing: house Smoking Status: Former smoker quit date: 07/29/13 alcohol intake: never substance use type: does not use Review of Systems (Anesthesia) ROS Narrative System reviewed and no additional complaints, except as documented.
--- NOTE | 2025-05-12 09:11 | PCM.PRE.AN2 ---
ASA Classification* ASA Classification ASA Classification: 3 Assessment & Plan Anesthesia* Anesthesia Assessment Anesthesia Assessment: Discussed sedation and/or anesthesia options, risks, benefits, and alternatives with patient/parents/legal guardian/POA. Questions invited. The patient/parents/legal guardian/POA seems to understand and agrees to proceed with anesthesia plan. Reviewed the physical assessment, medical history, allergy history and patient home medications list prior to surgery/procedure/anesthetic and documented any changes. Performed airway and anesthesia risk assessments. Anesthesia Type Anesthesia Type: MAC History Source History Obtained from:: Patient and Chart Anesthesia Focused Assessment* Temperature: 97.6 F Pulse Rate: 74 Blood Pressure: 110/45 Respiratory Rate: 17 Pulse Ox: 98 Oxygen Delivery Method: Room Air Airway Assessment Mouth opens: >3 cm Mallampati Score: II Teeth Condition: Missing (Only few lower teeth present) Neck Range of motion (ROM): Limited ROM Labs Anesthesia Preop lab: CBC WBC, (4.4-11.0) 4.3 K/mm3 L 04/01/25, 06:08 RBC, (4.2-5.4) 4.27 M/mm3 04/01/25, 06:08 Hgb, (12.0-15.0) 11.9 g/dL L 04/01/25, 06:08 Hct, (37-47) 37.7 % 04/01/25, 06:08 Plt Count, (150-450) 189 K/mm3 04/01/25, 06:08 CHEMISTRY Potassium, (3.3-5.1) 4.0 mmol/L 04/01/25, 06:08 Sodium, (133-145) 134 mmol/L 04/01/25, 06:08 Magnesium, (1.5-2.2) 1.9 mg/dL 03/31/25, 10:38 BUN, (4-19) 3 mg/dL L 04/01/25, 06:08 Creatinine, (0.70-1.20) 0.54 mg/dL L 04/01/25, 06:08 Glucose, (70-99) 92 mg/dL 04/01/25, 06:08 TSH, (0.358-3.74) 0.80 uIU/mL 11/21/15, 16:47 COAG PT, (11.7-14.9) 16.5 SECONDS H 03/31/25, 06:00 Pre-Assessment Diagnosis/Proposed Procedure Planned Operative Procedure(s): EGD Anesthesia History 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 When Was Last Pacemaker Check QUESTION #4 FULL TEXT: You/Your Family Experience fever (hyperthermia) with Anesthesia Last Oral Intake Last Oral intake: Last Oral Intake NPO since 00:00 05/12/25 08:56 Meds taken in AM with sips of Yes 05/12/25 08:56 water? 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 Female Yes 05/10/25 08:30 HX of Motion Sickness No 05/10/25 08:30 HX of N/V After Surgery No 05/10/25 08:30 Non-Smoker Yes 05/10/25 08:30 Duration of Surgery greater No 05/10/25 08:30 than 60 minutes Number of Risk Factors 2 05/10/25 08:30 PONV Score Moderate Risk 05/10/25 08:30 Height & Weight Height & Weight: Anesthesia: Height & Weight Height 5 ft 3 in 05/12/25 08:56 Weight: 75 kg 05/12/25 08:56 Body Mass Index (BMI) 29.2 05/12/25 08:56 Respiratory Assessment Respiratory Assessment - 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 Has anyone observed you stop No 05/10/25 08:30 breathing during sleep? STOP Results Negative 05/10/25 08:30 QUESTION #5 FULL TEXT : Do you snore loudly (louder than talking or can be heard through closed doors)? 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 Specify any problems Hx of Preganancy in last 3 No 05/10/25 08:30 Months Nurse Filling Out Transfusion VCHRISTIN 05/10/25 08:30 & Questions: Date: 05/10/25 05/10/25 08:30 Time: 08:32 05/10/25 08:30 Patient unable to answer at this time (ie. 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 Hx Now No 05/10/25 08:30 Gestational Age (in weeks): EDC: Hx Hx Para Hx Section SAB No 05/10/25 08:30 Active Medications Active Medications: Current Medications Generic Name Dose Route Start Last Admin Trade Name Freq PRN Reason Stop Dose Admin Lactated Ringer's 1,000 mls @ 15 mls/hr 05/12/25 08:45 05/12/25 09:00 IV 15 mls/hr .Q48H NICOLE Administration PFSH Medical History Hx of sigmoidoscopy Protein calorie malnutrition Diverticulitis of sigmoid colon Nausea and vomiting Epigastric abdominal pain Cancer Walker as ambulation aid DVT (deep venous thrombosis) Gastric reflux Crohn disease 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 Mass of anus Perirectal abscess History of Crohn's disease Pancreatic insufficiency Crohn disease Psoriatic arthritis Psoriasis Internal derangement of right knee Wears glasses Post-menopausal Depression Anxiety Ambulates with cane Injury of back Difficulty swallowing History of IBS History of hiatal hernia Former smoker Shortness of breath on exertion Chronic cough History of echocardiogram History of stress test Hypertension Cardiology follow-up encounter History of CHF (congestive heart failure) History of irregular heartbeat Acute pharyngitis, unspecified URI (upper respiratory infection) Contact with or suspected exposure to other viral communicable disease History of partial replacement of left hip joint using bipolar prosthesis Vitamin D deficiency HLD (hyperlipidemia) Insomnia Dry eye Regular astigmatism, bilateral PVCs (premature ventricular contractions) Coronary artery stenosis Chronic diastolic CHF (congestive heart failure) Iron malabsorption Osteoarthritis Lumbar spondylosis Osteoporosis Congenital cataract Intermittent palpitations Nausea TIA (transient ischemic attack) Acute maxillary sinusitis, unspecified Acute ethmoidal sinusitis, unspecified Acute frontal sinusitis, unspecified COPD exacerbation Foreign body in conjunctival sac, left eye, initial encounter Acute bacterial conjunctivitis Influenza A Acute bronchitis Back pain Limb weakness Asthma Anemia Arthritis Home Medications ?Medication ?Instructions ?Recorded ?Last Taken ?Type albuterol sulfate 90 mcg/actuation 2 puff inhalation Q4H PRN PRN 03/13/15 Unknown History aerosol inhaler Shortness Of Breath fluoxetine 20 mg capsule 60 mg PO QHS MENTAL HEALTH 12/13/15 09/01/24 History peg [id number] 1 1 drp OP 4X/DAY DRY EYES 11/13/17 03/19/24 History %-0.2 %-0.2 % eye drops (Dry Eye Relief) leflunomide 20 mg tablet (Arava) 20 mg PO QHS RA 03/22/18 09/01/24 History amlodipine 5 mg tablet 7.5 mg PO DAILY BP 08/15/22 03/02/25 06:30 History mometasone 50 mcg/actuation nasal 2 spray intranasal DAILY ALLERGIES 08/15/22 09/01/24 History spray abatacept 50 mg/0.4 mL 50 mg subcut QMONTH RA 12/17/22 02/18/25 History subcutaneous syringe (Orencia) acetaminophen 500 mg tablet 1,000 mg PO Q6H PRN fever or pain 11/15/23 09/01/24 History atorvastatin 80 mg tablet 80 mg PO QHS CHOLESTEROL 11/15/23 09/01/24 History meclizine 25 mg tablet 25 mg PO QHS PRN PRN dizziness 03/17/24 03/02/25 06:30 History bupropion HCl (smoking deter) 150 150 mg PO QHS DEPRESSION 09/02/24 09/01/24 History mg tablet,12 hr sustained-release(smoking deterrent) cholecalciferol (vitamin D3) 1,250 1,250 mcg PO Q14D REPLACEMENT 10/24/24 Unknown History mcg (50,000 unit) capsule furosemide 20 mg tablet 20 mg PO DAILY WATER PILL 10/24/24 Unknown History diphenoxylate-atropine 2.5 1 tab PO TID PRN diarrhea #90 tabs 02/02/25 Unknown Rx mg-0.025 mg tablet (Lomotil) apixaban 5 mg tablet (Eliquis) 5 mg PO BID HX DVT, CAROTID ARTERY 03/27/25 05/03/25 History DISEASE primidone 50 mg tablet 100 mg PO QHS TREMORS 03/27/25 Unknown History pantoprazole 40 mg tablet,delayed 40 mg PO QDAY #90 tabs 04/21/25 Unknown Rx release scopolamine base 1 mg over 3 days 1 patch topical Q3D #10 patches 05/04/25 Unknown Rx transdermal patch alprazolam 1 mg tablet 1 mg PO TID ANXIETY 30 days #90 05/10/25 Unknown Rx tabs prochlorperazine maleate 10 mg 10 mg PO TID PRN nausea and 05/10/25 Unknown Rx tablet (Compazine) vomiting #30 tabs Allergy/AdvReac Type Severity Reaction Status Date / Time doxycycline calcium (From Allergy Anaphylaxis Verified 05/12/25 08:55 Vibramycin) doxycycline hyclate (From Allergy Anaphylaxis Verified 05/12/25 08:55 Vibramycin) doxycycline monohydrate Allergy Anaphylaxis Verified 05/12/25 08:55 (From Vibramycin) NSAIDS (Non-Steroidal Allergy Anaphylaxis Verified 05/12/25 08:55 Anti-Inflamma duloxetine (From Cymbalta) AdvReac HEADACHE Verified 05/12/25 08:55 AND UPSET STOMACH hydrocodone bitartrate (From AdvReac STOMACH Verified 05/12/25 08:55 Vicodin) UPSET hydromorphone HCl (From AdvReac Vomiting Verified 05/12/25 08:55 Dilaudid) morphine AdvReac Vomiting Verified 05/12/25 08:55 Family History Mother Asthma Hypertension Kidney disease Father Asthma Myocardial infarction Daughter Asthma Diabetes Hypertension Sister Asthma Hypertension Surgical History History of left hip replacement History of total right knee replacement (TKR) S/P total knee arthroplasty Hx of esophagogastroduodenoscopy History of cardiac catheterization S/P repair of paraesophageal hernia History of Vanessa fundoplication H/O adenoidectomy History of tonsillectomy H/O hernia repair History of total left knee replacement Hx of section H/O shoulder surgery Social History household members: family housing: house Smoking Status: Former smoker quit date: 07/29/13 alcohol intake: never substance use type: does not use Review of Systems (Anesthesia) ROS Narrative System reviewed and no additional complaints, except as documented.
--- NOTE | 2025-05-12 09:21 | PCM.HP.STD ---
HPI - General General Date of Admission: 05/12/25 Date of Service: 05/12/25 Chief Complaint: Dysphagia HPI Narrative Details: OV 03/16/2025 64-year-old female with a history of hiatal hernia repair presenting with chronic diarrhea, postprandial upper abdominal band-like cramping sensation, nausea and intermittent emesis. Budesonide and Creon were discontinued and Lomotil started at her last appointment on 02/08/2025. Previous colonoscopy was non-diagnostic with absence of histological confirmation of chronic inflammation or granulomas. MRE showed only mild, non-specific SB wall thickening and hyperenhancement (no strictures, no penetrating disease, no obstruction), which is not definitive for Crohn's disease in the absence of histologic findings. Fecal Calprotectin at time of diagnosis and previously was only borderline (81, 57 respectively), this is non-specific. Serologic markers (ACCA, ALCA, AMCA) are not diagnostic for Crohn's. Capsule Endoscopy failed to enter the small bowel, so mucosal assessment was not achieved. Stool testing was recently negative for infectious pathogen and fecal calprotectin was normal at 16, indicating diarrhea secondary to IBD is unlikely. She previously denied any improvement in diarrhea on Budesonide for >1 year and she denies any worsening of diarrhea with discontinuing Budesonide; further supporting a non-IBD etiology. Sigmoidoscopy was performed (Dr. Garcia) 03/02/2025 this did not show any s/s of mucosal inflammation and anal biopsy was unremarkable. She does reports better control of bowels with Lomotil compared to Imodium and will continue to use AC. Fecal Elastase was previously low at 76, suggesting a possible pancreatic insufficiency. However, her lack of response to Creon and lack of worsening symptoms with discontinuing, suggests fecal elastase was likely falsely low in the setting of chronic watery diarrhea. Additionally, she denies any fatty, greasy, oily stools which are difficult to clean up. Repeat stool testing on a formed stool sample would be needed to confirm a true EPI. I have recommended she continue Lomotil and trial a 2 week lactose free diet. She also reports in the past year she was switched from Simvastatin to Atorvastatin, and notes diarrhea has been much worse in the past 6-12 months. I have requested she contact cardiology for approval to hold Atorvastatin for 2 weeks and monitor symptoms. She complains of lower esophageal dysphagia, nausea, intermittent emesis of food and fluid, as well as postprandial upper abdominal band-like cramping sensation. She is limiting PO intake to one meal a day to prevent pain as well as limit diarrhea, this has resulted in a weight loss of 12lbs in the past six weeks. She reports symptoms have been an ongoing issue since hiatal hernia repair in 2019. ABD US performed 03/25/2024 revealed liver steatosis, mildly dilated CBD (6.5mm); otherwise unremarkable. She reports a HIDA Scan was previously negative in 2019. I have scheduled her for an Esophagram and GES to further evaluate her UGI symptoms. If GES is normal and symptoms are persisting, I recommend repeat ABD US and HIDA. Patient Instructions: 1. Contact cardiology and request approval to hold Atorvastatin for 10 days 2. Lactose free diet x14 days 3. Continue Lomotil 4. Schedule Esophagram and GES 5. Discontinue pantoprazole, as she reports this has not shown any symptomatic improvement 6. Discontinue promethazine, as she reports this has not shown any symptomatic improvement 7. Compazine, has done well with this in the past. Caution use with Meclizine. 8. Discontinue dicyclomine, as she reports this has not shown any symptomatic improvement 9. Follow-up in the office in 3 weeks GI CONSULT 03/29/2025 64-year-old female with a history of anal cancer s/p pelvic radiation and RA on Abatacept, presenting with an acute flare of proctocolitis, likely due to chronic radiation-induced changes, but with important considerations for other etiologies. She also has chronic dysphagia secondary to fundoplication and likely underlying motility disorder either from the fundoplication or previously undiagnosed prior to the fundoplication. Primary Diagnosis: Chronic Radiation Proctitis (CRP) Exacerbation: This is the most likely cause, given her history of pelvic radiation for anal cancer. Radiation causes progressive inflammation, vasculitis, and fibrosis, which can manifest years after treatment. The patient's long-standing symptoms with a recent acute flare, including bleeding, are characteristic. CRP is common after pelvic radiotherapy and can be triggered by various factors, but in her case, immunosuppression from abatacept could also play a role. Differential Diagnoses: Inflammatory Bowel Disease (IBD) flare: Although her chronic symptoms align with radiation injury, new or concurrent onset of IBD (e.g., Crohn's disease) is a possibility, especially with her RA history (an immune-mediated disease). Biopsy results from endoscopy would be crucial. Infectious Colitis: The low-grade fever and acute worsening of diarrhea warrant an infectious workup. Clostridioides difficile infection is a significant concern given her immunosuppressed state. Other pathogens, including CMV (especially with immunosuppression) or bacterial causes, should be considered. Recurrence of Malignancy: A recurrent or new malignancy must be excluded. Endoscopy with biopsies is critical, as a neoplasm can mimic radiation changes. Ischemic Colitis: The obliterative vasculitis from chronic radiation can predispose to bowel ischemia, although her presentation is less acute. Stool Studies: C. difficile PCR/toxin assay. Stool culture for bacteria (e.g., Salmonella, Shigella, Campylobacter). Stool ova and parasites. Stool for CMV Laboratory Studies: Complete Blood Count (CBC) with differential to assess for anemia (from chronic bleeding) and leukocytosis (from infection). Comprehensive Metabolic Panel (CMP) to evaluate electrolytes and kidney function, especially with diarrhea. C-reactive protein (CRP) and Erythrocyte Sedimentation Rate (ESR) to assess for systemic inflammation. Endoscopy: Flexible Sigmoidoscopy or Colonoscopy: To visualize the mucosa, assess the extent and severity of inflammation, and obtain biopsies to differentiate CRP from IBD or malignancy. Therapeutics: Symptom Management: Continue supportive measures with hydration. Hold loperamide temporarily until infectious causes are ruled out. Consider topical therapies for proctitis symptoms, such as sucralfate enemas. RA Management: Consult with Rheumatology regarding the management of abatacept, especially if an infection is identified. Treatment based on findings: If C. difficile positive: Start appropriate oral antibiotic (e.g., vancomycin or fidaxomicin). If CRP confirmation: Manage with topical agents, consider hyperbaric oxygen therapy (if severe and refractory) COLON 03/31/2025 - hepatic flexure TA, random biopsies negative for microscopic colitis/IBD - Mucosal ulceration. Biopsied. - One 5 mm polyp at the hepatic flexure, removed with a jumbo cold forceps. Resected and retrieved. - Congested mucosa in the entire examined colon. Biopsied. - Diverticulosis in the recto-sigmoid colon, in the sigmoid colon and in the descending colon. - The examination was otherwise normal on direct and retroflexion views. - Repeat colonoscopy in 3 years for surveillance. Lactoferrin: 03/29/2025 negative C. Diff: 03/29/2025 negative Enteric Pathogens stool: 03/29/2025 negative O&P: 03/29/2025 negative CRP 03/28/2025 <3 DISCHARGE 04/01/2025 #Diverticulitis of the sigmoid colon admitted with a complaint of abdominal pain. CT abdomen showed sigmoid diverticulitis and proctitis on metronidazole and ceftriaxone had only one episode of bowel movement in the early hours of this morning; sample sent for enteric panel GI on board. GI is concerned about radiation induced injury to the rectum and colon. For colonoscopy today due to concerns about radiation proctitis #Chronic diarrhea, nausea and vomiting with abdominal pain and GI on board. this is chronic. follows up with GI on outpatient basis. GI on board. Has had random colonic biopsy, and noninvasive workup for chronic pancreatic insufficiency and Crohn's disease was negative. For colonoscopy today. Gastric emptying study (one hour) was normal yesterday. colonoscopy today showed mucosal ulceration with 5mm polyp at the hepatic flexure, congested mucosa in the entire examined colon which was biopsied, and diverticulosis in the rectosigmoid colon and in the descending colon. #History of anal cancer: s/p chemoradiation. In remission. Had flexible sigmoidoscopy with biopsy by Dr Garcia in 02/2025. Biopsy was negative for malignancy and showed benign squamous mucosa with hyperkeratosis. ABD 03/25/2024 Gallbladder: Normal distended gallbladder. The gallbladder wall measures 2.0 mm. There is a negative sonographic Mae''s sign. There is no pericholecystic fluid. There are no gallstones. Common Bile Duct (C.B.D.): The common bile duct measures 6.5 mm. GES 03/28/2025 There is 40% emptying at 1 hour. - little nausea - denies any emesis - compazine for nausea PRN, infrequent - scopalamine patch - came into ER for severe abdominal pain not worsening diarrhea, - Augmentin - finish today treating acute diverticulitis seen on admission CT - she reports the abdominal pain is improved - stools were [place] 1 now [place] 5 - now only having 1 BM daily - RUQ abdominal pain, intermittent, with eating this becomes a stabbing pain Budesonide 9mg daily - not sure why she is taking this - lactoferrin was normal and biopsies were unremarkable Lomotil TID - none since admission - weight is stable - she did a 2 week atorvastatin hold prior to admission and no improvement in diarrhea - she now recalls taking Colestipol in the past and reports this caused constipation and she had to take Miralax - Alprazolan has decreased from TID to QD at HS - off PPI and swallowing is not any worse - denies any HB - diarrhea has markedly improved from 2-3x a day with incontinence to once a day with limited use of Lomotil The patient is a 64-year-old female presenting with severe abdominal pain and persistent diarrhea. The abdominal pain was severe enough to prompt an emergency room visit. It was described as severe, located in the RUQ, and sometimes presenting as a stabbing pain, particularly after eating, or intermittently while at rest. The patient reported exacerbation of pain with the intake of greasy foods. Despite ongoing symptoms, the pain has not been consistently worsening. The patient has a history of diverticulitis confirmed via CT scan during the ER visit. Colonoscopy results were negative for colitis, and fecal lactoferrin levels were normal, suggesting no active colonic inflammation. The patient's stools range from very loose ([place] Stool Scale type 5) to previously watery ([place] Stool Scale type 7) prior to intervention. She initially experienced frequent diarrhea with urgency and fecal incontinence but now only goes once a day, with less urgency since medication adjustments. The patient reported a dumping syndrome, with a past study showing rapid gastric emptying. Symptoms were not altered by various medications for pancreatic insufficiency, including holding atorvastatin without improvement in diarrhea. Currently, greasy foods cause loose stools and diarrhea without any blood present. She denies consistent nausea or vomiting, though occasional mild nausea is present. No vomiting has occurred. The patient also experiences dysphagia with certain foods like bread and rice. A prior gastric emptying study returned normal results at 40% emptying at one hour. A significant family history includes a daughter with gallbladder pathology, and the patient has not undergone gallbladder removal. update ] [facility] Medical History Hx of sigmoidoscopy Protein calorie malnutrition Diverticulitis of sigmoid colon Nausea and vomiting Epigastric abdominal pain Cancer Walker as ambulation aid DVT (deep venous thrombosis) Gastric reflux Crohn disease 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 Mass of anus Perirectal abscess History of Crohn's disease Pancreatic insufficiency Crohn disease Psoriatic arthritis Psoriasis Internal derangement of right knee Wears glasses Post-menopausal Depression Anxiety Ambulates with cane Injury of back Difficulty swallowing History of IBS History of hiatal hernia Former smoker Shortness of breath on exertion Chronic cough History of echocardiogram History of stress test Hypertension Cardiology follow-up encounter History of CHF (congestive heart failure) History of irregular heartbeat Acute pharyngitis, unspecified URI (upper respiratory infection) Contact with or suspected exposure to other viral communicable disease History of partial replacement of left hip joint using bipolar prosthesis Vitamin D deficiency HLD (hyperlipidemia) Insomnia Dry eye Regular astigmatism, bilateral PVCs (premature ventricular contractions) Coronary artery stenosis Chronic diastolic CHF (congestive heart failure) Iron malabsorption Osteoarthritis Lumbar spondylosis Osteoporosis Congenital cataract Intermittent palpitations Nausea TIA (transient ischemic attack) Acute maxillary sinusitis, unspecified Acute ethmoidal sinusitis, unspecified Acute frontal sinusitis, unspecified COPD exacerbation Foreign body in conjunctival sac, left eye, initial encounter Acute bacterial conjunctivitis Influenza A Acute bronchitis Back pain Limb weakness Asthma Anemia Arthritis Home Medications ?Medication ?Instructions ?Recorded ?Last Taken ?Type albuterol sulfate 90 mcg/actuation 2 puff inhalation Q4H PRN PRN 03/13/15 Unknown History aerosol inhaler Shortness Of Breath fluoxetine 20 mg capsule 60 mg PO QHS MENTAL HEALTH 12/13/15 09/01/24 History peg [id number] 1 1 drp OP 4X/DAY DRY EYES 11/13/17 03/19/24 History %-0.2 %-0.2 % eye drops (Dry Eye Relief) leflunomide 20 mg tablet (Arava) 20 mg PO QHS RA 03/22/18 09/01/24 History amlodipine 5 mg tablet 7.5 mg PO DAILY BP 08/15/22 03/02/25 06:30 History mometasone 50 mcg/actuation nasal 2 spray intranasal DAILY ALLERGIES 08/15/22 09/01/24 History spray abatacept 50 mg/0.4 mL 50 mg subcut QMONTH RA 12/17/22 02/18/25 History subcutaneous syringe (Orencia) acetaminophen 500 mg tablet 1,000 mg PO Q6H PRN fever or pain 11/15/23 09/01/24 History atorvastatin 80 mg tablet 80 mg PO QHS CHOLESTEROL 11/15/23 09/01/24 History meclizine 25 mg tablet 25 mg PO QHS PRN PRN dizziness 03/17/24 03/02/25 06:30 History bupropion HCl (smoking deter) 150 150 mg PO QHS DEPRESSION 09/02/24 09/01/24 History mg tablet,12 hr sustained-release(smoking deterrent) cholecalciferol (vitamin D3) 1,250 1,250 mcg PO Q14D REPLACEMENT 10/24/24 Unknown History mcg (50,000 unit) capsule furosemide 20 mg tablet 20 mg PO DAILY WATER PILL 10/24/24 Unknown History diphenoxylate-atropine 2.5 1 tab PO TID PRN diarrhea #90 tabs 02/02/25 Unknown Rx mg-0.025 mg tablet (Lomotil) apixaban 5 mg tablet (Eliquis) 5 mg PO BID HX DVT, CAROTID ARTERY 03/27/25 05/03/25 History DISEASE primidone 50 mg tablet 100 mg PO QHS TREMORS 03/27/25 Unknown History pantoprazole 40 mg tablet,delayed 40 mg PO QDAY #90 tabs 04/21/25 Unknown Rx release scopolamine base 1 mg over 3 days 1 patch topical Q3D #10 patches 05/04/25 Unknown Rx transdermal patch alprazolam 1 mg tablet 1 mg PO TID ANXIETY 30 days #90 05/10/25 Unknown Rx tabs prochlorperazine maleate 10 mg 10 mg PO TID PRN nausea and 05/10/25 Unknown Rx tablet (Compazine) vomiting #30 tabs Allergy/AdvReac Type Severity Reaction Status Date / Time doxycycline calcium (From Allergy Anaphylaxis Verified 05/12/25 08:55 Vibramycin) doxycycline hyclate (From Allergy Anaphylaxis Verified 05/12/25 08:55 Vibramycin) doxycycline monohydrate Allergy Anaphylaxis Verified 05/12/25 08:55 (From Vibramycin) NSAIDS (Non-Steroidal Allergy Anaphylaxis Verified 05/12/25 08:55 Anti-Inflamma duloxetine (From Cymbalta) AdvReac HEADACHE Verified 05/12/25 08:55 AND UPSET STOMACH hydrocodone bitartrate (From AdvReac STOMACH Verified 05/12/25 08:55 Vicodin) UPSET hydromorphone HCl (From AdvReac Vomiting Verified 05/12/25 08:55 Dilaudid) morphine AdvReac Vomiting Verified 05/12/25 08:55 Family History Mother Asthma Hypertension Kidney disease Father Asthma Myocardial infarction Daughter Asthma Diabetes Hypertension Sister Asthma Hypertension Surgical History History of left hip replacement History of total right knee replacement (TKR) S/P total knee arthroplasty Hx of esophagogastroduodenoscopy History of cardiac catheterization S/P repair of paraesophageal hernia History of Vanessa fundoplication H/O adenoidectomy History of tonsillectomy H/O hernia repair History of total left knee replacement Hx of section H/O shoulder surgery Social History household members: family housing: house Smoking Status: Former smoker quit date: 07/29/13 alcohol intake: never substance use type: does not use ROS Constitutional Constitutional: Denies fatigue, fever(s), poor appetite, weight gain or weight loss Gastrointestinal Gastrointestinal: Denies belching, bloating, change in bowel habits, change in stool character, chewing difficulty, coffee ground emesis, constipation, cramping, diarrhea, dyspepsia, dysphagia, early satiety, excessive flatus, fecal incontinence, heartburn, hematemesis, hematochezia, hemorrhoids, loose stools, melena, nausea, odynophagia, rectal bleeding, tenesmus, vomiting or weight changes Vital Signs Vital Signs Vital Signs: 05/12/25 08:56 05/12/25 08:56 05/12/25 09:12 Temperature 97.6 F L 97.6 F L Temperature Source Temporal Pulse Rate 74 74 Respiratory Rate 17 17 Respiratory Pattern Normal Blood Pressure 110/45 L 110/45 L Blood Pressure Mean 66 Blood Pressure Source Monitor Blood Pressure Position Semi-Fowlers Blood Pressure Location Left Arm Pulse Ox 98 98 Oxygen Delivery Method Room Air Room Air Weight Weight: 165 lb 5.547 oz Body Mass Index (BMI) 29.2 Physical Exam Const alert, oriented x3, no apparent distress and healthy appearing General Appearance: cooperative GI normal to inspection, nondistended, normoactive bowel sounds, soft to palpation, non-tender and non-distended Percussion: normal to percussion Rectal Exam: deferred Assessment & Plan Assessment/Plan (1) Dysphagia: (2) RUQ pain: (3) Weight loss: PLAN: Assessment and Plan Assessment and Plan (1) Dysphagia: Status: Acute (2) RUQ pain: Status: Acute Orders: Orders Hepatobilliary Img w/Pharm Int Today R10.11 - Right upper quadrant pain, R13.10 - Dysphagia, unspecified Plan 64y/o female presents for follow-up post admission with a history of perianal squamous cell carcinoma post radiation with complaints of chronic RUQ abdominal pain. Recent fecal calprotectin was normal at 16 off budesonide, arguing against IBD as the etiology of diarrhea. She had no symptomatic response to Budesonide after >1 year of use, and symptoms did not worsen after discontinuation, further supporting a non-IBD etiology. Sigmoidoscopy on 03/02/2025 showed no mucosal inflammation; anal biopsy was unremarkable. During recent admission, CT revealed sigmoid diverticulitis and rectal wall thickening (likely radiation related). Colonoscopy revealed a hepatic flexure TA; random biopsies were negative for inflammation including microscopic and IBD. Lactoferrin, C. diff, stool pathogen panel, O&P, and CRP were all negative/normal. GES was normal. Taken together, the clinical, laboratory, endoscopic, and histologic work-up has effectively ruled-out IBD, microscopic colitis, ischemic colitis, and malignancy recurrence as causes of her diarrhea. Diarrhea is now better controlled with lomotil (better tolerated than Imodium or Colestipol). She continues to experience nausea, RUQ abdominal pain, intermittently severe, exacerbated by meals (especially fatty foods) and not improved with antibiotics prescribed for diverticulitis. She also reports intermittent radiation of pain into back. ABD US performed 03/25/2024 revealed liver steatosis, mildly dilated CBD (6.5mm); otherwise unremarkable. HIDA scan has been ordered for further evaluation. Budesonide, pantoprazole, dicyclomine, and creon have all been discontinued without worsening of symptoms, supporting limited benefit from these therapies. She will continue lomotil as needed for diarrhea. She complains of lower esophageal dysphagia, without further emesis. She denies any worsening os symptoms with discontinuing pantoprazole. Symptoms have ongoing since HH repair in 2019. Esophagram was ordered at her last office visit and she will schedule. Patient Instructions: Budesonide 9mg QOD for the next week and then discontinue Call [phone] to schedule HIDA and Esophagram Keep a diary of symptoms (pain/diarrhea) and use of Lomotil Send portal message in 2 weeks with symptom
--- NOTE | 2025-05-12 09:30 | EGD_PTH ---
PATIENT: DEWEY HORTA LOC: EN U#:[id number] AGE/SX: 65/F ROOM: RE05/12/[address]: Dr. Andrez Pitts DO : 1960 BED: DIS: 05/12/2025 SPEC #: [id number] RECD: 05/12/25 11:38 STATUS: SAMREEN REJc #: [id number] THALIA: 05/12/25 09:[address]: Andrez Pitts DEPT: SURGICAL PATHOLOGY RECD BY: Wang Jerez ENTERED: 05/12/25 15:10 SP TYPE: EGD BIOPSY KATIANA DR: Ciara Dhillon, TIRE CARE MANAGER-C Tissues: A - Esophagus, NOS Procedures: Surgery Specimen Level IV HEADER OPERATION: EGD with biopsy and dilated PRE-OP DIAGNOSIS: Dysphagia, right upper quadrant pain, weight ;loss TISSUE SUBMITTED: A- Distal esophagus biopsy MICROSCOPIC DIAGNOSIS A. Distal esophagus, biopsy: * Benign squamous epithelium with no pathologic change MICROSCOPIC DESCRIPTION Slides are reviewed. GROSS DESCRIPTION A. Received in fixative is one container labeled with the patient's name and designated Distal esophagus biopsy. The specimen consists of two irregular fragments of akhtar tissue that measure 0.3 and 0.4 cm. The specimen is totally submitted in one cassette. [place] 05/12/2025 CPT:05897
--- NOTE | 2025-05-12 09:30 | EGD_PTH ---
PATIENT: DEWEY HORTA LOC: EN U#:[id number] AGE/SX: 65/F ROOM: RE05/12/[address]: Dr. Andrez Pitts DO : 1960 BED: DIS: 05/12/2025 SPEC #: [id number] RECD: 05/12/25 11:38 STATUS: SAMREEN REJc #: [id number] THALIA: 05/12/25 09:[address]: Andrez Pitts DEPT: SURGICAL PATHOLOGY RECD BY: Wang Jerez ENTERED: 05/12/25 15:10 SP TYPE: EGD BIOPSY KATIANA DR: Ciara Dhillon, EMAIL MARKETING MANAGER-C Tissues: A - Esophagus, NOS Procedures: Surgery Specimen Level IV HEADER OPERATION: EGD with biopsy and dilated PRE-OP DIAGNOSIS: Dysphagia, right upper quadrant pain, weight ;loss TISSUE SUBMITTED: A- Distal esophagus biopsy MICROSCOPIC DIAGNOSIS A. Distal esophagus, biopsy: * Benign squamous epithelium with no pathologic change MICROSCOPIC DESCRIPTION Slides are reviewed. GROSS DESCRIPTION A. Received in fixative is one container labeled with the patient's name and designated Distal esophagus biopsy. The specimen consists of two irregular fragments of akhtar tissue that measure 0.3 and 0.4 cm. The specimen is totally submitted in one cassette. [place] 05/12/2025 CPT:73964
--- NOTE | 2025-05-12 10:18 | OP.PROVAT_ITS ---
05/12/2025 [facility] Re : Upper GI endoscopy procedure for Marimar Wang Dear Jacquie This procedure was performed on Monday, May 12, 2025. My impressions and recommendations are as follows: Impressions : - Abnormal esophageal motility, suspicious for achalasia. Dilated. - Z-line irregular, 38 cm from the incisors. Biopsied. - Moderate Schatzki ring. - Hiatal hernia. - A fundoplication was found. - Gastroparesis. - No gross lesions in the entire examined duodenum. Recommendations : - Discharge patient to home. - Resume previous diet. - Continue present medications. - Await pathology results. My findings are described in the full procedure note, which is enclosed. If I can be of further assistance, please feel free to contact me at . Sincerely, Andrez Pitts, 05/12/2025 10:17:53 AM This report has been signed electronically.
--- NOTE | 2025-05-12 10:18 | OP.EGD_ITS ---
Patient Name: Marimar Wang Procedure Date: 05/12/2025 9:50 AM Date of : 1960 Age: 65 Procedure: Upper GI endoscopy Indications: Epigastric abdominal pain, Abdominal pain in the right upper quadrant, Abdominal pain in the left upper quadrant, Dysphagia Providers: Andrez Pitts DO Referring MD: Sinai Arriola Medicines: Monitored Anesthesia Care Patient Profile: This is a 65 year old female. Refer to note in patient chart for documentation of history and physical. Patient has symptoms of acute right upper quadrant abdominal pain, acute left upper quadrant abdominal pain, acute epigastric abdominal pain, acute dysphagia, dysphagia with both liquids and solids and acute dyspepsia. Complications: No immediate complications. Procedure: Pre-Anesthesia Assessment: - Prior to the procedure, a History and Physical was performed, and patient medications and allergies were reviewed. The patient is competent. The risks and benefits of the procedure and the sedation options and risks were discussed with the patient. All questions were answered and informed consent was obtained. Patient identification and proposed procedure were verified by the physician in the pre-procedure area. Mental Status Examination: alert and oriented. Airway Examination: normal oropharyngeal airway and neck mobility. Respiratory Examination: clear to auscultation. CV Examination: normal. Prophylactic Antibiotics: The patient does not require prophylactic antibiotics. Prior Anticoagulants: The patient has taken no anticoagulant or antiplatelet agents except for NSAID medication. ASA Grade Assessment: II - A patient with mild systemic disease. After reviewing the risks and benefits, the patient was deemed in satisfactory condition to undergo the procedure. The anesthesia plan was to use monitored anesthesia care (MAC). Immediately prior to administration of medications, the patient was re-assessed for adequacy to receive sedatives. The heart rate, respiratory rate, oxygen saturations, blood pressure, adequacy of pulmonary ventilation, and response to care were monitored throughout the procedure. The physical status of the patient was re-assessed after the procedure. After obtaining informed consent, the endoscope was passed under direct vision. Throughout the procedure, the patient's blood pressure, pulse, and oxygen saturations were monitored continuously. The Endoscope was introduced through the mouth, and advanced to the third part of the duodenum. Small bowel enteroscopy was deemed necessary. The upper GI endoscopy was accomplished without difficulty. The patient tolerated the procedure well. Scope In: 10:02:43 AM Scope Out: 10:08:13 AM Total Procedure Duration Time 0 hours 5 minutes 30 seconds Findings: Abnormal motility was noted at the lower esophageal sphincter. The cricopharyngeus was normal. There are extra peristaltic waves in the esophageal body. The distal esophagus/lower esophageal sphincter is spastic, but gives up passage to the endoscope. Tertiary peristaltic waves are noted. A guidewire was placed and the scope was withdrawn. Dilation was performed with a Savary dilator with no resistance at 57 Fr. The dilation site was examined and showed moderate improvement in luminal narrowing. Estimated blood loss was minimal. The Z-line was irregular and was found 38 cm from the incisors. Biopsies were taken with a cold forceps for histology. Verification of patient identification for the specimen was done. Estimated blood loss was minimal. A moderate Schatzki ring was found at the gastroesophageal junction. A hiatal hernia was present. Evidence of a fundoplication was found in the gastric fundus. Suspect gastroparesis due to absence of peristalsis, patient symptoms and retained gastric contents. No gross lesions were noted in the entire examined duodenum. Impression: - Abnormal esophageal motility, suspicious for achalasia. Dilated. - Z-line irregular, 38 cm from the incisors. Biopsied. - Moderate Schatzki ring. - Hiatal hernia. - A fundoplication was found. - Gastroparesis. - No gross lesions in the entire examined duodenum. Recommendation: - Discharge patient to home. - Resume previous diet. - Continue present medications. - Await pathology results. Procedure Code(s): --- Professional --- 56084, Esophagogastroduodenoscopy, flexible, transoral; with insertion of guide wire followed by passage of dilator(s) through esophagus over guide wire 07855, 59,51, Small intestinal endoscopy, enteroscopy beyond second portion of duodenum, not including ileum; with biopsy, single or multiple CPT copyright 2021 [employer]. All rights reserved. The codes documented in this report are preliminary and upon cantilever crane operator review may be revised to meet current compliance requirements. Andrez Pitts DO 05/12/2025 10:17:53 AM This report has been signed electronically. Number of Addenda: 0 Note Initiated On: 05/12/2025 9:50 AM
--- NOTE | 2025-05-12 10:18 | OP.EGD_ITS ---
Patient Name: Marimar Wang Procedure Date: 05/12/2025 9:50 AM Date of : 1960 Age: 65 Procedure: Upper GI endoscopy Indications: Epigastric abdominal pain, Abdominal pain in the right upper quadrant, Abdominal pain in the left upper quadrant, Dysphagia Providers: Andrez Pitts DO Referring MD: Sinai Arriola Medicines: Monitored Anesthesia Care Patient Profile: This is a 65 year old female. Refer to note in patient chart for documentation of history and physical. Patient has symptoms of acute right upper quadrant abdominal pain, acute left upper quadrant abdominal pain, acute epigastric abdominal pain, acute dysphagia, dysphagia with both liquids and solids and acute dyspepsia. Complications: No immediate complications. Procedure: Pre-Anesthesia Assessment: - Prior to the procedure, a History and Physical was performed, and patient medications and allergies were reviewed. The patient is competent. The risks and benefits of the procedure and the sedation options and risks were discussed with the patient. All questions were answered and informed consent was obtained. Patient identification and proposed procedure were verified by the physician in the pre-procedure area. Mental Status Examination: alert and oriented. Airway Examination: normal oropharyngeal airway and neck mobility. Respiratory Examination: clear to auscultation. CV Examination: normal. Prophylactic Antibiotics: The patient does not require prophylactic antibiotics. Prior Anticoagulants: The patient has taken no anticoagulant or antiplatelet agents except for NSAID medication. ASA Grade Assessment: II - A patient with mild systemic disease. After reviewing the risks and benefits, the patient was deemed in satisfactory condition to undergo the procedure. The anesthesia plan was to use monitored anesthesia care (MAC). Immediately prior to administration of medications, the patient was re-assessed for adequacy to receive sedatives. The heart rate, respiratory rate, oxygen saturations, blood pressure, adequacy of pulmonary ventilation, and response to care were monitored throughout the procedure. The physical status of the patient was re-assessed after the procedure. After obtaining informed consent, the endoscope was passed under direct vision. Throughout the procedure, the patient's blood pressure, pulse, and oxygen saturations were monitored continuously. The Endoscope was introduced through the mouth, and advanced to the third part of the duodenum. Small bowel enteroscopy was deemed necessary. The upper GI endoscopy was accomplished without difficulty. The patient tolerated the procedure well. Scope In: 10:02:43 AM Scope Out: 10:08:13 AM Total Procedure Duration Time 0 hours 5 minutes 30 seconds Findings: Abnormal motility was noted at the lower esophageal sphincter. The cricopharyngeus was normal. There are extra peristaltic waves in the esophageal body. The distal esophagus/lower esophageal sphincter is spastic, but gives up passage to the endoscope. Tertiary peristaltic waves are noted. A guidewire was placed and the scope was withdrawn. Dilation was performed with a Savary dilator with no resistance at 57 Fr. The dilation site was examined and showed moderate improvement in luminal narrowing. Estimated blood loss was minimal. The Z-line was irregular and was found 38 cm from the incisors. Biopsies were taken with a cold forceps for histology. Verification of patient identification for the specimen was done. Estimated blood loss was minimal. A moderate Schatzki ring was found at the gastroesophageal junction. A hiatal hernia was present. Evidence of a fundoplication was found in the gastric fundus. Suspect gastroparesis due to absence of peristalsis, patient symptoms and retained gastric contents. No gross lesions were noted in the entire examined duodenum. Impression: - Abnormal esophageal motility, suspicious for achalasia. Dilated. - Z-line irregular, 38 cm from the incisors. Biopsied. - Moderate Schatzki ring. - Hiatal hernia. - A fundoplication was found. - Gastroparesis. - No gross lesions in the entire examined duodenum. Recommendation: - Discharge patient to home. - Resume previous diet. - Continue present medications. - Await pathology results. Procedure Code(s): --- Professional --- 55477, Esophagogastroduodenoscopy, flexible, transoral; with insertion of guide wire followed by passage of dilator(s) through esophagus over guide wire [id number], 59,51, Small intestinal endoscopy, enteroscopy beyond second portion of duodenum, not including ileum; with biopsy, single or multiple CPT copyright 2021 [employer]. All rights reserved. The codes documented in this report are preliminary and upon medical insurance coder review may be revised to meet current compliance requirements. Andrez Pitts DO 05/12/2025 10:17:53 AM This report has been signed electronically. Number of Addenda: 0 Note Initiated On: 05/12/2025 9:50 AM
--- NOTE | 2025-05-12 10:23 | PCM.POST.ANE ---
Anesthesia: Postop Eval I Current Vital Signs Temperature: 97.4 F Pulse Rate: 71 Blood Pressure: 114/57 Respiratory Rate: 16 Pulse Ox: 94 Oxygen Delivery Method: Room Air Assessment Airway patent: Yes Spontaneous unlabored respirations: Yes Mental status: Asleep nausea: No Vomiting: No Anesthesia Complication: No Fluid Hydration Crystalloid volume administer (ml): 300 Total IV fluid infused: 300 Progress Note Anesthesia document: Postop Eval 1 completed: Yes
--- NOTE | 2025-05-12 12:09 | PCM.POSTANE2 ---
Anesthesia Postop Eval I Sum Postop Eval Completion status Anesthesia document: Postop Eval 1 completed: Yes Anesthesia Postop Eval I Summary Anesthesia Postop Eval I Summary: Anesthesia Postop Eval I: Assessment Summary Airway patent Yes 05/12/25 10:23 [email or web address] Spontaneous unlabored Yes 05/12/25 10:23 [email or web address] respirations Mental status Asleep 05/12/25 10:23 [email or web address] nausea No 05/12/25 10:23 [email or web address] Vomiting No 05/12/25 10:23 [email or web address] Anesthesia Postop Eval I: Fluid Summary Crystalloid volume administer 300 05/12/25 10:23 [email or web address] (ml) Colloids volume administered ( ml) Blood Product volume administered (ml) Total IV fluid infused 300 05/12/25 10:23 [email or web address] Anesthesia Postop Eval I: Summary Notes Anesthesia Complication No 05/12/25 10:23 [email or web address] Anesthesia Complication Comment: Post-operative progress note Anesthesia: Postop Eval II Evaluation Mental status: Awake and Calm Pain Level: 1 nausea: No Vomiting: No Complications Anesthesia Complication: No
== END 2025-05-12 11:23 | disposition home or self-care (01) ==
LOC: EN 08:12 → AC 08:13
PROVIDERS: PCP Nurse Practitioner Family; Referring Provider Nurse Practitioner Family; Visit Provider Internal Medicine Gastroenterology
PROC: 0DJ08ZZ Inspection of Upper Intestinal Tract, Via Natural or Artificial Opening Endoscopic (ICD-10-PCS; CPT 43235; principal; 2025-05-12 09:25)
DX: R13.10 Dysphagia, unspecified (principal); I11.0 Hypertensive heart disease with heart failure; I50.32 Chronic diastolic (congestive) heart failure; J44.9 Chronic obstructive pulmonary disease, unspecified; Z86.718 Personal history of other venous thrombosis and embolism; K52.9 Noninfective gastroenteritis and colitis, unspecified; E78.5 Hyperlipidemia, unspecified; K44.9 Diaphragmatic hernia without obstruction or gangrene; K31.84 Gastroparesis; Z87.891 Personal history of nicotine dependence; Z85.048 Personal history of other malignant neoplasm of rectum, rectosigmoid junction, and anus; K62.7 Radiation proctitis; Z85.828 Personal history of other malignant neoplasm of skin; I25.10 Atherosclerotic heart disease of native coronary artery without angina pectoris; Z86.73 Personal history of transient ischemic attack (TIA), and cerebral infarction without residual deficits; F32.A Depression, unspecified; Z79.899 Other long term (current) drug therapy; Z79.01 Long term (current) use of anticoagulants; F41.9 Anxiety disorder, unspecified; K21.9 Gastro-esophageal reflux disease without esophagitis; Z96.642 Presence of left artificial hip joint; Z96.653 Presence of artificial knee joint, bilateral; R10.11 Right upper quadrant pain; R63.4 Abnormal weight loss; Z68.29 Body mass index [BMI] 29.0-29.9, adult; K30 Functional dyspepsia; K22.89 Other specified disease of esophagus; K22.2 Esophageal obstruction
CPT/HCPCS: 43248; 43239; 88305; A4216; C1769; J2405

== ENCOUNTER → 2025-05-13 | Outpatient (CLI) | payer MEDICARE, MEDICAID, SELFPAY ==
--- NOTE | 2025-05-13 08:22 | CT_ITS ---
PROCEDURE: CTA ABDOMEN W/WO CONTRAST 05/13/2025 REASON FOR EXAM: R/O MESENTERIC ISCHEMIA TECHNIQUE: Procedure Code: [id number] Modality: CT Procedure: CTA ABDOMEN W/WO CONTRAST Multiplanar Sagittal and Coronal images were obtained. 3D and or MIPS post processing was performed CONTRAST: Isovue 370 VOLUME: 100 mL One or more dose reduction techniques were used (e.g., Automated exposure control, adjustment of the mA and/or kV according to patient size, use of iterative reconstruction technique). RADIATION DOSE SUMMARY: CTDlvol: 23.6 mGy DLP: 619.44 mGycm COMPARISON: Prior study dated March 27, 2025. FINDINGS: Aorta: Mild mixed calcified and soft plaque identified. No abdominal aortic aneurysm. Iliac Arteries: Scattered atherosclerotic plaque. No aneurysm or significant stenosis. Celiac: Normal. SMA: Mild mixed calcified and soft plaque identified. DIMITRIOS : Mild mixed calcified and soft plaque identified. Right Renal: Mild mixed calcified and soft plaque identified. Left Renal: Normal. Extravascular Findings: Minimal right pleural effusion with the right basilar atelectasis. Stable small hiatal hernia. Subtotal gastrectomy. CT/CTA Abdomen W/WO Contrast IMPRESSION: No evidence of mesenteric ischemia. Reading Location: [place] [id number]
[2025-05-13] MEDS: 0.9% Saline Lock 10 ML Syringe IV (08:30)
== END | disposition home or self-care (01) ==
LOC: CT 08:20
PROVIDERS: PCP Nurse Practitioner Family; Referring Provider Nurse Practitioner Acute Care; Visit Provider Nurse Practitioner Acute Care
DX: Z45.2 Encounter for adjustment and management of vascular access device (principal); R10.11 Right upper quadrant pain; R63.4 Abnormal weight loss; R19.7 Diarrhea, unspecified; R63.39 Other feeding difficulties
CPT/HCPCS: 74175; Q9967; A4216

== ENCOUNTER 2025-07-08 15:16 | Emergency (ER) | payer MEDICARE, MEDICAID, SELFPAY ==
[2025-07-08] VITALS (9 sets, daily range): BP systolic 121–151; BP diastolic 79–92; PULSE 78–80; RESP 16–18; TEMP 36.8; O2SAT 96–100; BMI 31.3
--- NOTE | 2025-07-08 15:29 | EDS_ITS ---
HPI HPI - Fall History of Present Illness Chief Complaint: Fall Detail of Chief Complaint: Fall Informant: patient Narrative Narrative: Patient presents to the emergency department via EMS after a fall today. She s tates that she was trying to get into her vehicle and there was some ice next in the car she slipped and fell onto her left side. Does not think she hit her head. She complains of left hip pain and left shoulder pain. Patient is on Eliquis. Denies any pain in her neck initially. Denies any paresthesias. She tells me she was able to stand and bear some weight on her left hip. Denies difficulty breathing or abdominal pain [facility] Medical History Hx of sigmoidoscopy Protein calorie malnutrition Diverticulitis of sigmoid colon Nausea and vomiting Epigastric abdominal pain Cancer Walker as ambulation aid DVT (deep venous thrombosis) Gastric reflux Crohn disease 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 Mass of anus Perirectal abscess History of Crohn's disease Pancreatic insufficiency Crohn disease Psoriatic arthritis Psoriasis Internal derangement of right knee Wears glasses Post-menopausal Depression Anxiety Ambulates with cane Injury of back Difficulty swallowing History of IBS History of hiatal hernia Former smoker Shortness of breath on exertion Chronic cough History of echocardiogram History of stress test Hypertension Cardiology follow-up encounter History of CHF (congestive heart failure) History of irregular heartbeat Acute pharyngitis, unspecified URI (upper respiratory infection) Contact with or suspected exposure to other viral communicable disease History of partial replacement of left hip joint using bipolar prosthesis Vitamin D deficiency HLD (hyperlipidemia) Insomnia Dry eye Regular astigmatism, bilateral PVCs (premature ventricular contractions) Coronary artery stenosis Chronic diastolic CHF (congestive heart failure) Iron malabsorption Osteoarthritis Lumbar spondylosis Osteoporosis Congenital cataract Intermittent palpitations Nausea TIA (transient ischemic attack) Acute maxillary sinusitis, unspecified Acute ethmoidal sinusitis, unspecified Acute frontal sinusitis, unspecified COPD exacerbation Foreign body in conjunctival sac, left eye, initial encounter Acute bacterial conjunctivitis Influenza A Acute bronchitis Back pain Limb weakness Asthma Anemia Arthritis Home Medications ?Medication ?Instructions ?Recorded ?Last Taken ?Type albuterol sulfate 90 mcg/actuation 2 puff inhalation Q 4H PRN PRN 03/13/15 Unknown History aerosol inhaler Shortness Of Breath fluoxetine 20 mg capsule 60 mg PO QHS MENTAL HEALTH 0 12/13/15 09/01/24 History peg [id number] 1 1 drp OP 4X/DAY DRY EY ES 11/13/17 03/19/24 History %-0.2 %-0.2 % eye drops (Dry Eye Relief) leflunomide 20 mg tablet (Arava) 20 mg PO QHS RA 03/2209/01/24 History amlodipine 5 mg tablet 7.5 mg PO DAILY BP 08/15/22 03/02/25 06:30 History mometasone 50 mcg/actuation nasal 2 spray intranasal D AILY ALLERGIES 08/15/22 09/01/24 History spray abatacept 50 mg/0.4 mL 50 mg subcut QMONTH RA 12/1702/18/25 History subcutaneous syringe (Orencia) acetaminophen 500 mg tablet 1,000 mg PO Q6H PRN fever or pain 11/15/23 09/01/24 History atorvastatin 80 mg tablet 80 mg PO QHS CHOLESTEROL 09/01/24 History meclizine 25 mg tablet 25 mg PO QHS PRN PRN dizzine ss 03/17/24 03/02/25 06:30 History bupropion HCl (smoking deter) 150 150 mg PO QHS DEPRES SHOAIB 09/02/24 09/01/24 History mg tablet,12 hr sustained-release(smoking deterrent) furosemide 20 mg tablet 20 mg PO DAILY WATER PILL Unknown History apixaban 5 mg tablet (Eliquis) 5 mg PO BID HX DVT, CAR OTID ARTERY 03/27/25 05/03/25 History DISEASE primidone 50 mg tablet 100 mg PO QHS TREMORS Unknown History pantoprazole 40 mg tablet,delayed 40 mg PO QDAY #90 ta bs 04/21/25 Unknown Rx release alprazolam 1 mg tablet 1 mg PO TID ANXIETY 30 days #90 05/10/25 Unknown Rx tabs diphenoxylate-atropine 2.5 1 tab PO TID PRN diarrhea # 90 tabs 05/17/25 Unknown Rx mg-0.025 mg tablet (Lomotil) cholecalciferol (vitamin D3) 1,250 1,250 mcg PO QMONTH REPLACEMENT 06/28/25 Unknown History mcg (50,000 unit) capsule prochlorperazine maleate 10 mg 10 mg PO TID PRN nausea and 06/28/25 Unknown Rx tablet (Compazine) vomiting #30 tabs scopolamine base 1 mg over 3 days 1 patch topical Q3D #10 patches 06/28/25 Unknown Rx transdermal patch rifaximin 550 mg tablet (Xifaxan) 550 mg PO TID 14 day s #42 tabs 06/30/25 Unknown Rx oxycodone-acetaminophen 5 mg-325 1 tab PO Q4H PRN pain 5 days #20 07/08/25 Unknown Rx mg tablet (Percocet) tabs Allergy/AdvReac Type Severity Reaction Status Date / Time doxycycline calcium (From Allergy Anaphylaxis Verified 07/08/25 15:20 Vibramycin) doxycycline hyclate (From Allergy Anaphylaxis Verified 07/08/25 15:20 Vibramycin) doxycycline monohydrate Allergy Anaphylaxis Verified 07/08/25 15:20 (From Vibramycin) NSAIDS (Non-Steroidal Allergy Anaphylaxis Verified 07/08/25 15:20 Anti-Inflamma duloxetine (From Cymbalta) AdvReac HEADACHE Verified 07/08/25 15:20 AND UPSET STOMACH hydrocodone bitartrate (From AdvReac STOMACH Verified 07/08/25 15:20 Vicodin) UPSET hydromorphone HCl (From AdvReac Vomiting Verified 07/08/25 15:20 Dilaudid) morphine AdvReac Vomiting Verified 07/08/25 15:20 Family History Mother Asthma Hypertension Kidney disease Father Asthma Myocardial infarction Daughter Asthma Diabetes Hypertension Sister Asthma Hypertension Surgical History History of left hip replacement History of total right knee replacement (TKR) S/P total knee arthroplasty Hx of esophagogastroduodenoscopy History of cardiac catheterization S/P repair of paraesophageal hernia History of Vanessa fundoplication H/O adenoidectomy History of tonsillectomy H/O hernia repair History of total left knee replacement Hx of section H/O shoulder surgery Social History household members: family housing: house Smoking Status: Former smoker quit date: 07/29/13 alcohol intake: never substance use type: does not use ROS ROS ED Review of Systems ROS Unobtainable: other Constitutional Constitutional ED: Reports lethargy; Denies chills, fever(s), sweats or weight loss Eyes Eyes: Denies blurry vision, change in vision or diplopia ENT ENT ED: Denies rhinorrhea or sore throat Cardiovascular Cardiovascular: Denies chest pain, orthopnea or racing heartbeat Respiratory/Chest Respiratory/Chest: Denies cough, dyspnea, dyspnea on exertion, orthopnea or sputum Gastrointestinal Gastrointestinal: Denies abdominal pain, diarrhea, nausea or vomiting Genitourinary Genitourinary ED: Denies dysuria, hematuria or urinary frequency Musculoskeletal Musculoskeletal: Reports other Details: Left shoulder pain, left hip pain ; Denies arthralgias, back pain, myalgias or neck pain Integumentary Denies abscess, Abrasions or rash Neurologic Neurologic: Denies headache(s) or weakness Psychiatric Psychiatric: Denies anxiety, depression or suicidal thoughts Endocrine Endocrinology: Denies polydipsia, polyphagia or polyuria Hematologic/Lymphatic Hematologic/Lymphatic: Denies easy bleeding, easy bruising or lymphadenopathy Allergic/Immunologic Allergic/Immunologic ED: Denies mouth swelling, tongue swelling or urticaria EXAM Physical Exam Const Vital Signs: 07/08/25 15:17 07/08/25 15:21 07/08/25 15:38 Temperature 98.3 F Temperature Source Oral Pulse Rate 80 Respiratory Rate 16 Respiratory Effort Normal Respiratory Depth Normal Respiratory Pattern Normal Blood Pressure 151/79 H Blood Pressure Mean 103 Pulse Ox 100 100 96 Oxygen Delivery Method Room Air Room Air Positive well nourished and well developed General Appearance ED: well developed and NAD HEENT Reports TM's clear and moist mucous membranes normocephalic and atraumatic; Negative for trauma or tenderness Tympanic Membrane ED: Yes TM's clear Eyes PERRL and EOMs intact bilaterally General Eye ED: Negative for pale conjunctiva or scleral icterus Neck no lymphadenopathy, supple and no JVD Neck Narrative: Mild diffuse tenderness to palpation over the C5, 6 and 7. No bony step-offs or depressions. Good range of motion. General: Negative for tenderness Chest Wall inspection of chest normal and palpation of chest normal Chest: Negative for tenderness Resp normal respiratory effort and clear to auscultation bilaterally Effort and Inspection: Negative for respiratory distress or pain with movement Auscultation: Negative for rhonchi, wheezes or diminished lung sounds Cardio regular rate, regular rhythm, S1 normal heart sound, S2 normal heart sound and no murmurs Peripheral Pulses: pulses 2+ throughout GI normal to inspection, nondistended, normoactive bowel sounds, soft to palpation, non-tender, non-distended and no masses Back/Spine no CVA tenderness and no thoracic nor lumbar tenderness Back/Spine Narrative: Tenderness palpation over the left scapula. No ecchymosis or bruising. Extremity Extremity Narrative: Left shoulder-mild diffuse tenderness about the glenohumeral joint. Good range of motion. No obvious deformity. Neurovascular intact distally. Left hip-mild diffuse tenderness over the hip. No obvious deformity. No shortening or external rotation. Neurovascular intact distally. General Extremety ED: Negative for edema General Extremity: Negative for edema Neuro oriented x3, CN's II-XII intact bilaterally, no sensory deficits noted and gait normal Sensorium / Orientation: awake, alert, oriented to person, oriented to place and oriented to time Motor Exam: strength 5/5 throughout and strength abnormal Psych mental status grossly normal Skin no rashes or lesions noted and no wounds MDM MDM MDM Narrative Medical decision making narrative: Patient presents to the emergency department after mechanical fall. CT scan of the brain without contrast showed no intracranial hemorrhage. Patient also had CT of C-spine that showed no fractures. X-rays of the chest unremarkable. Patient had x-rays of the left shoulder that did not show any new fractures. Patient also had x-rays of the left hip and pelvis which showed fractures of the inferior and superior pubic rami. Patient was medicated with morphine and Zofran. She can tolerate Percocet at home. Patient patient advised to follow- up with her primary care physician within next 3 to 5 days. She has a walker at home. She feels like she can manage and has help in the home. Radiography Diagnostic Testing: Clinical Impression(s) from Imaging Studies Brain CT 07/08/25 15:30 IMPRESSION: No acute intracranial hemorrhage, midline shift or mass effect. Reading Location: [facility] Cervical Spine CT 07/08/25 15:30 IMPRESSION: 1. No acute cervical spine fracture. 2. Degenerative changes of the spine. Reading Location: [facility] Chest X-Ray 07/08/25 15:45 IMPRESSION: Cardiomegaly with mild congestion. Reading Location: [facility] Hip/Pelvis X-Ray 07/08/25 15:45 IMPRESSION: Questionable nondisplaced fractures of the left superior and inferior pubic rami. Left hip hemiarthroplasty with intact hardware. Reading Location: [facility] Shoulder X-Ray 07/08/25 15:45 IMPRESSION: 1. Moderate degenerative change of the acromioclavicular joint. 2. Probable healed fracture deformity of the distal clavicle. Reading Location: [facility] Three-view x-rays of the left shoulder obtained interpreted by myself as no evidence of fracture. Radiology felt there was an old fracture of the clavicle that healed. 1 view chest x-ray obtained interpreted by myself as no evidence of pneumothorax or rib fracture or acute process. Radiology in agreement. 4 view x-rays of the left hip and pelvis obtained interpreted by myself as fracture of the inferior and superior pubic ramus on the left. Radiology felt there was questionable nondisplaced fractures of the left superior and inferior pubic rami. Discharge Plan Triage Chief Complaint: Fall ED Provider: Sharon Merino Dx/Rx/DC Orders Clinical Impression: Fall, Closed fracture of left inferior pubic ramus, Closed fracture of left superior pubic ramus Instructions: ED Mechanical Fall, ED Stable Pelvic Fracture Prescriptions: New oxycodone-acetaminophen [Percocet] 5-325 mg tablet 1 tab PO Q4H PRN (Reason: pain) 5 Days Qty: 20 0RF No Action mometasone 50 mcg/actuation spray,non-aerosol 2 spray intranasal DAILY Rx Instructions: administer into each nostril amlodipine 5 mg tablet 7.5 mg PO DAILY Orencia 50 mg/0.4 mL syringe 50 mg subcut QMONTH acetaminophen 500 mg tablet 1,000 mg PO Q6H PRN (Reason: fever or pain) atorvastatin 80 mg tablet 80 mg PO QHS prochlorperazine maleate [Compazine] 10 mg tablet 10 mg PO TID PRN (Reason: nausea and vomiting) Qty: 30 1RF scopolamine base 1 mg over 3 days patch 3 day 1 patch topical Q3D Qty: 10 0RF albuterol sulfate 1 INHALER inhaler 2 puff INHALATION Q4H PRN PRN (Reason: Shortness Of Breath) Patient Comments: BREATING fluoxetine 20 MG capsule 60 mg PO QHS Patient Comments: ANXIETY Dry Eye Relief 15 ML drops 1 drp OP 4X/DAY leflunomide [Arava] 20 tablet 20 mg PO QHS Patient Comments: meclizine 25 mg tablet 25 mg PO QHS PRN PRN (Reason: dizziness) bupropion HCl (smoking deter) 150 mg tablet extended release 12 hr 150 mg PO QHS primidone 50 mg tablet 100 mg PO QHS Eliquis 5 mg tablet 5 mg PO BID furosemide 20 mg tablet 20 mg PO DAILY cholecalciferol (vitamin D3) 1,250 mcg (50,000 unit) capsule 1,250 mcg PO QMONTH pantoprazole 40 mg tablet,delayed release (DR/EC) 40 mg PO QDAY Qty: 90 1RF alprazolam 1 mg tablet 1 mg PO TID 30 Days Qty: 90 2RF diphenoxylate-atropine [Lomotil] 2.5-0.025 mg tablet 1 tab PO TID PRN (Reason: diarrhea) Qty: 90 0RF Xifaxan 550 mg tablet 550 mg PO TID 14 Days Qty: 42 2RF Primary Care Provider: Ciara Dhillon NP Referrals: Ciara Dhillon NP, [facility] [Primary Care Provider, Family Practice] - 3-5 Days Print Language: Chilean Disposition Disposition: Home, Self Care
--- NOTE | 2025-07-08 15:30 | CT_ITS ---
PROCEDURE: SPINE CERVICAL WITHOUT CONTRAS 07/08/2025 REASON FOR EXAM: FALL TECHNIQUE: Procedure Code: CTSPC Modality: CT Procedure: SPINE CERVICAL WITHOUT CONTRAS Coronal and Sagittal reconstruction series were provided. One or more dose reduction techniques were used (e.g., Automated exposure control, adjustment of the mA and/or kV according to patient size, use of iterative reconstruction technique. RADIATION DOSE SUMMARY: CTDlvol: 44.99, 16.52 mGy DLP: 1112.29 mGycm COMPARISON: 06/06/2024 FINDINGS: BONES: No acute fracture or focal osseous lesion. Minimal grade 1 retrolisthesis of C4 relative to C3 and C5, unchanged. DISCS / DEGENERATIVE CHANGES: Disc space narrowing at multiple levels, greatest at C5-C6 and C6-C7. Multilevel facet arthropathy and vertebral endplate osteophytes. Mild right and moderate left C5-C6 neural foraminal stenosis. Significant central canal stenosis. SOFT TISSUES: No prevertebral soft tissue swelling. Carotid artery calcification bilaterally. Partially imaged right internal jugular central venous line. No apical pneumothorax. CT/Spine Cervical without Contras IMPRESSION: 1. No acute cervical spine fracture. 2. Degenerative changes of the spine. Reading Location: [id number]
--- NOTE | 2025-07-08 15:30 | CT_ITS ---
EXAM: CT Head Without Intravenous Contrast CLINICAL INDICATION: FALL TECHNIQUE: Axial computed tomography images of the head/brain without intravenous contrast. This CT exam was performed using one or more of the following dose reduction techniques: automated exposure control, adjustment of the mA and/or kV according to patient size, and/or use of iterative reconstruction technique. RADIATION DOSE: CTDIvol = 44 mGy, DLP = 1112 mGy-cm COMPARISON: No relevant prior studies available. FINDINGS: BRAIN AND EXTRA-AXIAL SPACES: Unremarkable. No hemorrhage. No significant white matter disease. No edema. No ventriculomegaly. BONES/JOINTS: Unremarkable. No acute fracture. SOFT TISSUES: Unremarkable. SINUSES: Unremarkable as visualized. No acute sinusitis. MASTOID AIR CELLS: Unremarkable as visualized. No mastoid effusion. CT/Brain/Head without Contrast IMPRESSION: No acute intracranial hemorrhage, midline shift or mass effect. Reading Location: [facility]
--- NOTE | 2025-07-08 15:45 | RAD_ITS ---
EXAM: XR Left Shoulder Complete, 2 or More Views CLINICAL INDICATION: FALL TECHNIQUE: Two or more views of the left shoulder. COMPARISON: No relevant prior studies available. FINDINGS: BONES/JOINTS: Moderate degenerative change of the acromioclavicular joint. Probable healed fracture deformity of the distal clavicle. No dislocation. SOFT TISSUES: Unremarkable. RAD/Shoulder min 2 Views IMPRESSION: 1. Moderate degenerative change of the acromioclavicular joint. 2. Probable healed fracture deformity of the distal clavicle. Reading Location: [id number]
--- NOTE | 2025-07-08 15:45 | RAD_ITS ---
EXAM: XR Chest, 1 View CLINICAL INDICATION: FALL TECHNIQUE: Frontal view of the chest. COMPARISON: No relevant prior studies available. FINDINGS: LUNGS AND PLEURAL SPACES: See below. HEART: Cardiomegaly with mild congestion. MEDIASTINUM: Unremarkable. Normal mediastinal contour. BONES/JOINTS: Unremarkable. No acute fracture. TUBES, LINES AND DEVICES: Right-sided Mediport with the distal tip in the SVC. No pneumothorax. RAD/Chest 1 View (Portable) IMPRESSION: Cardiomegaly with mild congestion. Reading Location: [id number]
--- NOTE | 2025-07-08 15:45 | RAD_ITS ---
PROCEDURE: HIP, UNI W/ PELVIS 2-3 VIEWS 07/08/2025 REASON FOR EXAM: FALL TECHNIQUE: Procedure Code: RAD Modality: DX Procedure: HIP, UNI W/ PELVIS 2-3 VIEWS Laterality: Left COMPARISON: 10/30/2024 FINDINGS: Questionable nondisplaced fractures of the left superior and inferior pubic rami, although this may be artifactual as patient is rotated towards the left. Otherwise no acute fracture or dislocation is evident. Status post left hip hemiarthroplasty with intact appearing hardware. Degenerative changes of the lower lumbosacral spine and bilateral sacroiliac joints. Qualitative osteopenia. Grossly unremarkable soft tissues. RAD/HIP, UNI W/ Pelvis 2-3 Views IMPRESSION: Questionable nondisplaced fractures of the left superior and inferior pubic joshua i. Left hip hemiarthroplasty with intact hardware. Reading Location: [id number]
== END 2025-07-08 16:52 | disposition home or self-care (01) ==
PROVIDERS: Emergency Provider Emergency Medicine; PCP Nurse Practitioner Family; Visit Provider Emergency Medicine
DX: S32.512A Fracture of superior rim of left pubis, initial encounter for closed fracture (principal); S32.592A Other specified fracture of left pubis, initial encounter for closed fracture; W00.0XXA Fall on same level due to ice and snow, initial encounter; Y93.89 Activity, other specified; Z87.891 Personal history of nicotine dependence
CPT/HCPCS: 70450; 71045; 72125; 73030; 73502; 99284; J2405